=== PATIENT | female | born 2000 | race Hispanic/Latino ===

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

== ENCOUNTER 2022-03-09 10:38 | Emergency (ER) | payer OTHER ==
[2022-03-09 10:57] LABS: Urine Blood Trace-intact (Negative); Urine Glucose Negative (Negative); Urine Protein Negative (Negative); Urine Specific Gravity >=1.030 (1.005-1.030)
--- NOTE | 2022-03-09 11:01 | ER ---
Nurse's Notes [facility] Name: Romy Bernstein Age: 21 yrs Sex: Female : 2000 Arrival Date: 03/09/2022 Time: 10:42 Bed 18 Private MD: Diagnosis: UTI/ Urinary tract infection, site not specified Presentation: 03/09 10:55 Chief complaint: Patient states: "I have a bad UTI. I tried taking over the counter jd3 medication, but is has just got worse. I think it has gotten to the point where it might have become a yeast infection.". Coronavirus screen: At this time, the client does not indicate any symptoms associated with coronavirus-19. Ebola Screen: No symptoms or risks identified at this time. Initial Sepsis Screen: Does the patient meet any 2 criteria? No. Patient's initial sepsis screen is negative. Does the patient have a suspected source of infection? No. Patient's initial sepsis screen is negative. Risk Assessment: Do you want to hurt yourself or someone else? Patient reports no desire to harm self or others. Onset of symptoms was March 07, 2022. 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 - Social history:: Smoking status: Patient reports the use of cigarette tobacco products, denies chronic smoking, but will smoke occasionally. Screenin:06 Abuse screen: Denies threats or abuse. Nutritional screening: No deficits noted. ll1 Tuberculosis screening: No symptoms or risk factors identified. Fall Risk Total Estrada Fall Scale indicates No Risk (0-24 pts). 11:07 [facility] ED Fall Risk Assessment (Adult) Score/Fall Risk Level 0 - 2 = Low Risk ll1 Oriented to surroundings, Maintained a safe environment, Hourly rounding (assess needs \\T\\ fall precautionary measures) done. Assessment: 11:05 General: Appears in no apparent distress. Behavior is calm, cooperative. Pain: ll1 Complains of pain in pelvic Quality of pain is described as aching, Pain began 2-3 days ago. Neuro: No deficits noted. Cardiovascular: No deficits noted. : Reports burning with urination, urgency, urinary frequency. Vital Signs: 10:57 BP 114 / 73; Pulse 72; Resp 16 S; Temp 99.0(O); Pulse Ox 100% on R/A; Weight 80.74 kg jd3 (R); Height 5 ft. 3 in. (160.02 cm) (R); Pain 6/10; 11:11 BP 112 / 71; Pulse 75; Resp 15; Pulse Ox 99% ; Pain 6/10; ll1 10:57 Body Mass Index 31.53 (80.74 kg, 160.02 cm) jd3 ED Course: 10:42 Patient arrived in ED. rg4 10:42 Fransisco Jackson PA is PHCP. [facility] 10:42 Juancarlos Frey MD is Attending Physician. [facility] 10:50 Mayi Jack, CHAYA is Primary Nurse. ll1 10:50 Arm band placed on Patient placed in an exam room, on a stretcher. ll1 10:57 Triage completed. jd3 11:06 No provider procedures requiring assistance completed. Patient did not have IV access ll1 during this emergency room visit. 11:07 Patient has correct armband on for positive identification. Bed in low position. Call ll1 light in reach. Cardiac monitoring not applicable on this patient. Administered Medications: 11:05 Drug: DiFLUcan (fluconazole) 150 mg Route: PO; ll1 11:12 Follow up: Response: No adverse reaction ll1 Medication: 11:07 VIS not applicable for this client. ll1 Outcome: 11:01 Discharge ordered by . [facility] 11:07 Condition: stable ll1 11:11 Discharged to home ambulatory. ll1 11:11 Instructed on discharge instructions, follow up and referral plans. medication usage. 11:11 Discharge instructions given to patient, Demonstrated understanding of instructions, follow-up care, Prescriptions given X 1. 11:12 Patient left the ED. 1 Signatures: MicFransisco ruelas PA PA jmm Garcia, Rubi rg4 Trent Kerr, RN RN jd3 Mayi Jack, RN RN ll1
--- NOTE | 2022-03-09 11:01 | EDPHYS ---
Physician Documentation [facility] Name: Romy Bernstein Age: 21 yrs Sex: Female : 2000 Arrival Date: 03/09/2022 Time: 10:42 Bed 18 Private MD: ED Physician Juancarlos Frey HPI: 03/09 10:57 This 21 yrs old Female presents to ER via Ambulatory with complaints of jmm Urinary Problem. 10:57 The patient presents with urinary symptoms. Onset: The symptoms/episode began/occurred jmm gradually. Is a 21-year-old female with history of epilepsy the presents emerged department with complaints of dysuria beginning on the fourth of this month. Patient took [id number] medications which seem to alleviate symptoms but symptoms returned and worsen 3 to 4 days ago. Denies fever or vomiting. Denies vaginal discharge. Denies fever.. 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 - Social history:: Smoking status: Patient reports the use of cigarette tobacco products, denies chronic smoking, but will smoke occasionally. ROS: 10:57 Constitutional: Negative for fever, chills, and weight loss, Cardiovascular: Negative jmm for chest pain, palpitations, and edema, Respiratory: Negative for shortness of breath, cough, wheezing, and pleuritic chest pain. 10:57 : Positive for urinary symptoms. 10:57 All other systems are negative. Exam: 10:57 Constitutional: This is a well developed, well nourished patient who is awake, alert, jmm and in no acute distress. Head/Face: atraumatic. Eyes: EOMI, no conjunctival erythema appreciated ENT: Moist Mucus Membranes Neck: Trachea midline, Supple Chest/axilla: Normal chest wall appearance and motion. Cardiovascular: Regular rate and rhythm. No edema appreciated Respiratory: Normal respirations, no respiratory distress appreciated Abdomen/GI: Non distended Back: Normal ROM Skin: General appearance color normal MS/ Extremity: Moves all extremities, no obvious deformities appreciated, no edema noted to the lower extremities Neuro: Awake and alert Psych: Behavior is normal, Mood is normal, Patient is cooperative and pleasant Vital Signs: 10:57 BP 114 / 73; Pulse 72; Resp 16 S; Temp 99.0(O); Pulse Ox 100% on R/A; Weight 80.74 kg jd3 (R); Height 5 ft. 3 in. (160.02 cm) (R); Pain 6/10; 11:11 BP 112 / 71; Pulse 75; Resp 15; Pulse Ox 99% ; Pain 6/10; ll1 10:57 Body Mass Index 31.53 (80.74 kg, 160.02 cm) jd3 MDM: 10:57 Patient medically screened. [facility] 11:00 Data reviewed: vital signs, nurses notes. Counseling: I had a detailed discussion with sheri the patient and/or guardian regarding: the historical points, exam findings, and any diagnostic results supporting the discharge/admit diagnosis, the need for outpatient follow up, to return to the emergency department if symptoms worsen or persist or if there are any questions or concerns that arise at home. 03/09 10:57 Order name: Urine Dipstick-Ancillary; Complete Time: 11:04 EDNE 03/09 11:09 Order name: Urine --Ancillary (enter results) eb Administered Medications: 11:05 Drug: DiFLUcan (fluconazole) 150 mg Route: PO; ll1 11:12 Follow up: Response: No adverse reaction ll1 Disposition Summary: 03/09/22 11:01 Discharge Ordered Location: Home [facility] Condition: Stable cesar Diagnosis - UTI/ Urinary tract infection, site not specified [facility] Followup: [facility] - With: Private Physician - When: 2 - 3 days - Reason: Recheck today's complaints, Continuance of care, Re-evaluation by your physician Discharge Instructions: - Discharge Summary Sheet [facility] - Urinary Tract Infection, Adult [facility] Forms: - Medication Reconciliation Form [facility] - Thank You Letter [facility] - Antibiotic Education [facility] - Prescription Opioid Use [facility] Prescriptions: - cefpodoxime 200 mg Oral Tablet - take 1 tablet by ORAL route every 12 hours for 10 days with food; 20 tablet; sheri Refills: 0, Product Selection Permitted Signatures: Dispatcher [employer] Fransisco Khoury PA PA jmm Davies, Jonathon RN RN jd3 Mayi Jack RN RN ll1
--- OUTSIDE RECORDS SUMMARY | 2022-03-09 11:01 | XMS REPORT | Continuity of Care Document ---
:2000 Author Organization [facility] t Address [address] [place] [address] Care Team Providers Name Role Phone ALENA ERICKSON Primary Care Physician Unavailable KORI CASAREZ Attending Clinician Unavailable Kori Casarez PA-C Attending Clinician BROOKLYN GARDUNO Attending Clinician Unavailable Brooklyn Garduno MD Attending Clinician Doctor Unassigned, [place] Attending Clinician Unavailable GREGORIO DELCID Attending Clinician Unavailable Liu Carlton Attending Clinician Unavailable HAYLEY CASTILLO Attending Clinician Unavailable 2, [facility] Attending Clinician Unavailable CATRACHO TAMAYO Attending Clinician Unavailable Alena Erickson MD Attending Clinician Roma Adame NP Attending Clinician EMELY CANALES Attending Clinician Unavailable Chinmay Aly DO Attending Clinician Alexandria Whitmore MD Attending Clinician Nurse, Tony Quevedo Attending Clinician Unavailable ALENA ERICKSON Attending Clinician Unavailable Catracho Robledo Attending Clinician ALEXANDRIA WHITMORE Attending Clinician Unavailable Dalia Arreguin MD Attending Clinician Eeg, Sapna Pedi Neuro Attending Clinician Unavailable DALIA ARREGUIN Attending Clinician Unavailable Nurse, [facility] Attending Clinician Unavailable Urology, [facility] Pedi Attending Clinician Unavailable Eddie FULLER, Demetrius Attending Clinician Urology, Sapna Pedi Attending Clinician Unavailable Apryl Guerrero MD Attending Clinician ALEXANDRIA WHITMORE Admitting Clinician Unavailable Payers Payer Name Policy Type Policy Number Effective Date Expiration Date Thuy graff [facility] [id number] 2016 CHOICE MEDICAID 00:00:00 FORMERLY [facility] [id number] 2022 00:00:00 MEDICAID [facility] [id number] 2021 2022 00:00:00 00:00:00 Problems Condition Condition Condition Status Onset Resolution Last Treating Co mments Source Name Details Category Date Date Treatment Clinician Date Nexplanon Nexplanon Disease Active Uni vers in place in place 5-14 ity of 00:00: [place] 00 Medical Branch Burning Burning Disease Active Univers with with 5-14 ity of urination urination 00:00: [facility] s 00 Medical Branch Chronic Chronic Disease Active Univers nonintract nonintract 3-13 it y of able able 00:00: [place] headache, headache, 00 Medi milagros unspecifie unspecifie Br anch d headache d headache type type Obesity Obesity Disease Active Univers peds (BMI peds (BMI 7-19 ity of >=95 >=95 00:00: [place] percentile percentile 00 Me dical ) ) Branch Generalize Generalize Disease Active Overview : Univers d epilepsy d epilepsy 7-19 Formattin ity of 00:00: g of this [place] 00 note Medical might be Branch different [...] gain 7-18 ity of 00:00: [place] 00 [facility] Migraine Migraine Disease Active Unive rs without without -08 ity of aura and aura and 00:00: [place] without without 00 Medical status status Branch migrainosu migrainosu s, not s, not intractabl intractabl e e Family Family Disease Active 2017-03 Univers history of history of 0-24 it y of breast breast 00:00: [place] cancer cancer 00 [facility] Depo-Prove Depo-Prove Disease Active 2017-03 U nivers ra ra 0-24 [place] contrace[place]pt [place] the[place] status thea status 00 Me dical Branch 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 0-24 it[place] of in female [place] female [place] [facility] Asthma Asthma Disease Active Univers ity of [facility] Allergic Allergic Disease Active Unive rs rhinitis rhinitis ity of [facility] Family Family Disease Active Univers history of history of it y of familial familial [place] hyperchole hyperchole Me dical sterolemia sterolemia Br anch Allergies, Adverse Reactions, Alerts Allergy Allergy Status Severity Reaction(s) Onset Inactive Treating Comm ents Source Name Type Date Date Clinician LEVETIRA DRUG Active Other-Cmnt 2021-03 Univ ers CETAM INGREDI -11 ity of 00:00: [place] 00 [facility] Levetira Propensi Active Other - See 2021-03 Numb U nivers cetam ty to comments 04-02 mouth, ity of adverse 00:00: and [place] reaction 00 sleepy [facility] Solifena Propensi Active Swelling 2016-03 Univ ers lizabeth ty to 2-06 ity of Succinat adverse 00:00: [place] e reaction 00 Medical s Branch SOLIFENA DRUG Active Rash 2016- Univers LIZABETH INGREDI 2-06 ity of SUCCINAT [...] INGREDI 1-14 ity of 00:00: [place] 00 [facility] Social History Social Habit Start Date Stop Date Quantity Comments Source History of Passive smoker [place] of tobacco use [facility] Exposure to 2022-02-11 2022-02-[address] [facility] SARS-CoV-2 00:00:00 10:47:00 [facility] (event) [place] Alcohol intake 2022-02-21 2022-02-21 Current University 00:00:00 00:00:00 non-drinker of [facility] alcohol (finding) Branch Tobacco use and 2022-01-02 2022-01-02 Smokeless tobacco Un iversity of exposure 00:00:00 00:00:00 non-user [facility] Sex Assigned At 2000 2002 Universit y of 00:00:00 00:00:00 [facility] Smoking Status Start Date Stop Date Source Never smoked tobacco [facility] Medications Ordered Filled Start Stop Current Ordering Indication Dosage Frequency Signature Comments Components Source Medication Medication Date Date Medication? Clinician (SIG) Name Name No known 2021-03 No No known Unive rs medications 1-16 medication it y of 13:07: [address] No known 2021-03 No No known Unive rs medications 1-16 medication it y of 13:07: [address] No known 2021-03 No No known Unive rs medications 1-16 medication it y of 13:07: [address] No known 2021-03 No No known Unive rs medications 1-16 medication it y of 13:07: [address] No known 2021-03 No No known Unive rs medications 1-16 medication it y of 13:07: [address] No known 2021-03 No No known Unive rs medications 1-16 medication it y of 13:07: s [address] etonogestre 2021-03- No [id number] 68mg Univers L 04-02 ity of (NEXPLANON) 16:15: 15:23 [place] implant 68 00 :00 Medical mg Branch etonogestre 2021-03- No [id number] 68mg 68 mg, Univers L 04-02 Subdermal, ity of (NEXPLANON) 16:15: 15:23 ONCE NOW, [place] implant 68 00 :00 1 dose, On Med ical mg [facility] 01/31/22 at 1015, Routine
Use approved by: BINDERY ASSISTANT etonogestre 2021-03- No [id number] 68mg Univers L 04-02 ity of (NEXPLANON) 16:15: 15:23 [place] implant 68 00 :00 Medical mg Branch etonogestre 2021-03- No [id number] 68mg 68 mg, Univers L 04-02 Subdermal, ity of (NEXPLANON) 16:15: 15:23 ONCE NOW, [place] implant 68 00 :00 1 dose, On Med ical mg [facility] 01/31/22 at 1015, Routine
Use approved by: BINDERY ASSISTANT etonogestre 2021-03- No [id number] 68mg Univers L 04-02 ity of (NEXPLANON) 16:15: 15:23 [place] implant 68 00 :00 Medical mg Branch etonogestre 2021-03- No [id number] 68mg 68 mg, Univers L 04-02 Subdermal, ity of (NEXPLANON) 16:15: 15:23 ONCE NOW, [place] implant 68 00 :00 1 dose, On Med ical mg [facility] 01/31/22 at 1015, Routine
Use approved by: BINDERY ASSISTANT No known 2021-03 No No known Unive rs medications -11 medication it y of 08:48: s [address] No known 2021-03 No No known Unive rs medications -11 medication it y of 08:48: s [address] No known 2021-03 No No known Unive rs medications 0-13 medication it y of 09:58: s [address] No known 2021-03 No No known Unive rs medications 0-13 medication it y of 09:58: s [address] No known 2021-03 No No known Unive rs medications 0-13 medication it y of 09:58: s [address] No known 2021-03 No No known Unive rs medications 0-13 medication it y of 09:58: s [address] calcium 2020-03- No 1000mg 1,000 mg, Un dante chloride 0-17 10-17 Intravenou ity of 100 mg/mL 04:30: 03:55 s, ONCE, 1 [place] (10 %) 00 :00 dose, On Medical syringe Sat Branch 1,000 mg 01/05/21 at 2330, STAT levETIRAcet 2020-03- No 1000mg 1,000 mg, Univers am (KEPPRA) 0-17 -17 IV ity of in NACL 03:15: 02:51 [...] No Univers medications 0-16 ity of 23:25: [address] No known 2020-03 No Univers medications 0-16 ity of 23:25: [address] No known 2020-03 No No known Unive rs medications 0-16 medication it y of 23:25: s [place] 12 Medical Branch ciprofloxac 2020-03- No [id number] 250mg Take 1 Univers in HCl 250 0-16 10-20 tablet by ity of mg tablet 00:00: 04:59 [place] 2 [place] :[place] (two) Medical times Branch daily for 3 days. fluticasone Yes [id number] 1{spray Use 1 Univers propionate 1-11 } [place] in ity o f 50 00:00: each [place] mcg/actuati 00 nostril Medic al on nasal daily. Branch spray fluticasone Yes [id number] 1{spray Use 1 Univers propionate 1-11 } [place] in ity o f 50 00:00: each [place] mcg/actuati 00 nostril Medic al on nasal daily. Branch spray fluticasone Yes [id number] 1{spray Use 1 Univers propionate 1-11 } [place] in ity o f 50 00:00: each [place] mcg/actuati 00 nostril Medic al on nasal daily. Branch spray fluticasone Yes [id number] 1{spray Use 1 Univers propionate 1-11 } [place] in ity o f 50 00:00: each [place] mcg/actuati 00 nostril Medic al on nasal daily. Branch spray fluticasone Yes [id number] 1{spray Use 1 Univers propionate 1-11 } [place] in ity o f 50 00:00: each [place] mcg/actuati 00 nostril Medic al on nasal daily. Branch spray fluticasone Yes [id number] 1{spray Use 1 Univers propionate 1-11 } [place] in ity o f 50 00:00: each [place] mcg/actuati 00 nostril Medic al on nasal daily. Branch spray fluticasone 2020- No [id number] 1{spray Use 1 Univers propionate 1-11 10-16 } [place] in ity of 50 00:00: 00:00 each [place] mcg/actuati 00 :00 nostril Medic al on nasal daily. Branch spray ibuprofen 2019-03 Yes [id number] 600mg Take 1 U nivers 600 mg 2-04 tablet by ity of tablet 00:00: mouth [place] 00 every 8 Medical (eight) Branch hours as needed for Pain (scale 4-6) (headache) . cetirizine 2019-03 Yes [id number] 10mg Take 1 U nivers 10 mg 2-04 tablet by ity of tablet 00:00: mouth [place] 00 daily. Medical Branch fluticasone 2019-03 Yes [id number] 1{spray Use 1 Univers propionate 2-04 } [place] in ity o f 50 00:00: each [place] mcg/actuati 00 nostril Medic al on nasal daily. Branch spray ibuprofen 2019-03 Yes [id number] 600mg Take 1 U nivers 600 mg 2-04 tablet by ity of tablet 00:00: mouth [place] 00 every 8 Medical (eight) Branch hours as needed for Pain (scale 4-6) (headache) . cetirizine 2019-03 Yes [id number] 10mg Take 1 U nivers 10 mg 2-04 tablet by ity of tablet 00:00: mouth [place] 00 daily. Medical Branch fluticasone 2019-03 Yes [id number] 1{spray Use 1 Univers propionate 2-04 } [place] in ity o f 50 00:00: each [place] mcg/actuati 00 nostril Medic al on nasal daily. Branch spray cetirizine 2019-03 Yes [id number] 10mg Take 1 U nivers 10 mg 2-04 tablet by ity of tablet 00:00: mouth [place] 00 daily. Medical Branch cetirizine 2019-03 Yes [id number] 10mg Take 1 U nivers 10 mg 2-04 tablet by ity of tablet 00:00: mouth [place] 00 daily. Medical Branch cetirizine 2019-03 Yes [id number] 10mg Take 1 U nivers 10 mg 2-04 tablet by ity of tablet 00:00: mouth [place] 00 daily. Medical Branch cetirizine 2019-03 Yes [id number] 10mg Take 1 U nivers 10 mg 2-04 tablet by ity of tablet 00:00: mouth [place] 00 daily. Medical Branch cetirizine 2019-03 Yes [id number] 10mg Take 1 U nivers 10 mg 2-04 tablet by ity of tablet 00:00: mouth [place] 00 daily. Medical Branch cetirizine 2019-03 Yes [id number] 10mg Take 1 U nivers 10 mg 2-04 tablet by ity of tablet 00:00: mouth [place] 00 daily. Medical Branch cetirizine 2019-03 Yes [id number] 10mg Take 1 U nivers 10 mg 2-04 tablet by ity of tablet 00:00: mouth [place] 00 daily. [facility] cetirizine 2019-03 Yes [id number] 10mg Take 1 U nivers 10 mg 2-04 tablet by ity of tablet 00:00: mouth [place] 00 daily. [facility] cetirizine 2019-03 Yes [id number] 10mg Take 1 U nivers 10 mg 2-04 tablet by ity of tablet 00:00: mouth [place] 00 daily. [facility] cetirizine 2019-03 Yes [id number] 10mg Take 1 U nivers 10 mg 2-04 tablet by ity of tablet 00:00: mouth [place] 00 daily. [facility] cetirizine 2019-03 Yes [id number] 10mg Take 1 U nivers 10 mg 2-04 tablet by ity of tablet 00:00: mouth [place] 00 daily. [facility] cetirizine 2019-03 Yes [id number] 10mg Take 1 U nivers 10 mg 2-04 tablet by ity of tablet 00:00: mouth [place] 00 daily. [facility] cetirizine 2019-03- No [id number] 10mg Take 1 Univers 10 mg 2-04 10-16 tablet by ity of tablet 00:00: 00:00 mouth [place] 00 :00 daily. [facility] ibuprofen 2019-03- No [id number] 600mg Take 1 Univers 600 mg 2-04 -11 tablet by ity of tablet 00:00: 00:00 mouth [place] 00 :00 every 8 Medical (eight) Branch hours as needed for Pain (scale 4-6) (headache) . fluticasone 2019-03- No [id number] 1{spray Use 1 Univers propionate 2-04 -11 } [place] in ity of 50 00:00: 00:00 each [place] mcg/actuati 00 :00 nostril Medic al on nasal daily. Branch spray ibuprofen 2019-03- No [id number] 600mg Take 1 Univers 600 mg 2-04 -11 tablet by ity of tablet 00:00: 00:00 mouth [place] 00 :00 every 8 Medical (eight) Branch hours as needed for Pain (scale 4-6) (headache) . fluticasone 2019-03- No [id number] 1{spray Use 1 Univers propionate 04-26 } [place] in ity of 50 00:00: 00:00 each [place] mcg/actuati 00 :00 nostril Medic al on nasal daily. Branch spray fluticasone 2019-03- No [id number] 1{spray Use 1 Univers propionate 04-26 } [place] in ity of 50 00:00: 00:00 each [place] mcg/actuati 00 :00 nostril Medic al on nasal daily. Branch spray ibuprofen 2019-03- No [id number] 600mg Take 1 Univers 600 mg 04-26 tablet by ity of tablet 00:00: 00:00 mouth [place] 00 :00 every 8 Medical (eight) Branch hours as needed for Pain (scale 4-6) (headache) . fluticasone 2019-03- No [id number] 1{spray Use 1 Univers propionate 04-26 } [place] in ity of 50 00:00: 00:00 each [place] mcg/actuati 00 :00 nostril Medic al on nasal daily. Branch spray ibuprofen 2019-03- No [id number] 600mg Take 1 Univers 600 mg 04-26 tablet by ity of tablet 00:00: 00:00 mouth [place] 00 :00 every 8 Medical (eight) Branch hours as needed for Pain (scale 4-6) (headache) . fluticasone 2019-03- No [id number] 1{spray Use 1 Univers propionate 04-26 } [place] in ity of 50 00:00: 00:00 each [place] mcg/actuati 00 :00 nostril Medic al on nasal daily. Branch spray ibuprofen 2019-03- No [id number] 600mg Take 1 Univers 600 mg 04-26 tablet by ity of tablet 00:00: 00:00 mouth [place] 00 :00 every 8 Medical (eight) Branch hours as needed for Pain (scale 4-6) (headache) . fluticasone 2019-03- No [id number] 1{spray Use 1 Univers propionate 04-26 } [place] in ity of 50 00:00: 00:00 each [place] mcg/actuati 00 :00 nostril Medic al on nasal daily. Branch spray ibuprofen 2019-03- No [id number] 600mg Take 1 Univers 600 mg 04-26 tablet by ity of tablet 00:00: 00:00 mouth [place] 00 :00 every 8 Medical (eight) Branch hours as needed for Pain (scale 4-6) (headache) . fluticasone 2019-03- No [id number] 1{spray Use 1 Univers propionate 04-26 } [place] in ity of 50 00:00: 00:00 each [place] mcg/actuati 00 :00 nostril Medic al on nasal daily. [place] spray etonogestre 2019-03 No 68mg Unive rs L 03-31 ity of (NEXPLANON) 22:45: 21:43 [place] implant 68 00 :00 Medical mg Branch etonogestre 2019-03 No 68mg 68 mg, Uni vers L 03-31 Subdermal, ity of (NEXPLANON) 22:45: 21:43 ONCE NOW, [place] implant 68 00 :00 1 dose, Medica l mg Mon [place] 01/30/20 at 1645, Routine
Use approved by: BINDERY ASSISTANT etonogestre 2019-03 No 68mg Unive rs L 03-31 ity of (NEXPLANON) 22:45: 21:43 [place] implant 68 00 :00 Medical mg Branch etonogestre 2019-03- No 68mg 68 mg, Uni vers L 03-31 Subdermal, ity of (NEXPLANON) 22:45: 21:43 ONCE NOW, [place] implant 68 00 :00 1 dose, Medica l mg Mon [place] 01/30/20 at 1645, Routine
Use approved by: BINDERY ASSISTANT topiramate Yes [id number] 25mg Take 1 Univers (TOPAMAX) 7-22 tablet by ity o f 25 mg 00:00: mouth 2 [place] tablet 00 (two) Medical times Branch daily. topiramate Yes [id number] 25mg Take 1 Univers (TOPAMAX) 7-22 tablet by ity o f 25 mg 00:00: mouth 2 [place] tablet 00 (two) Medical times Branch daily. topiramate Yes [id number] 25mg Take 1 Univers (TOPAMAX) 7-22 tablet by ity o f 25 mg 00:00: mouth 2 [place] tablet 00 (two) Medical times Branch daily. topiramate 2020-0 Yes [id number] 25mg Take 1 Univers (TOPAMAX) 7-22 tablet by ity o f 25 mg 00:00: mouth 2 [place] tablet 00 (two) Medical times Branch daily. topiramate 2020-0 Yes [id number] 25mg Take 1 Univers (TOPAMAX) 7-22 tablet by ity o f 25 mg 00:00: mouth 2 [place] tablet 00 (two) Medical times Branch daily. topiramate 2020-0 Yes [id number] 25mg Take 1 Univers (TOPAMAX) 7-22 tablet by ity o f 25 mg 00:00: mouth 2 [place] tablet 00 (two) Medical times Branch daily. topiramate 2020-0 Yes [id number] 25mg Take 1 Univers (TOPAMAX) 7-22 tablet by ity o f 25 mg 00:00: mouth 2 [place] tablet 00 (two) Medical times Branch daily. topiramate 2020-0 Yes [id number] 25mg Take 1 Univers (TOPAMAX) 7-22 tablet by ity o f 25 mg 00:00: mouth 2 [place] tablet 00 (two) Medical times Branch daily. topiramate 2020-0 Yes [id number] 25mg Take 1 Univers (TOPAMAX) 7-22 tablet by ity o f 25 mg 00:00: mouth 2 [place] tablet 00 (two) Medical times Branch daily. topiramate 2020-0 Yes [id number] 25mg Take 1 Univers (TOPAMAX) 7-22 tablet by ity o f 25 mg 00:00: mouth 2 [place] tablet 00 (two) Medical times Branch daily. topiramate 2020-0 2020- No [id number] 25mg Take 1 Univers (TOPAMAX) 7-22 12-04 tablet by ity of 25 mg 00:00: 00:00 mouth 2 [place] tablet 00 :00 (two) Medical times Branch daily. topiramate 2020-0 2020- No [id number] 25mg Take 1 Univers (TOPAMAX) 7-22 12-04 [...] Medical times Branch daily. omeprazole 2020-0 Yes [id number] 20mg Take 1 Univers 20 mg 7-16 capsule by ity of capsule 00:00: mouth [place] 00 daily. Medical Branch topiramate 2020-0 Yes 25mg Take 1 Unive rs (TOPAMAX) 7-16 tablet by ity o f 25 mg 00:00: mouth 2 [place] tablet 00 (two) Medical times Branch daily. omeprazole 2020-0 Yes [id number] 20mg Take 1 Univers 20 mg 7-16 capsule by ity of capsule 00:00: mouth [place] 00 daily. Medical Branch topiramate 2020-0 Yes 25mg Take 1 Unive rs (TOPAMAX) 7-16 tablet by ity o f 25 mg 00:00: mouth 2 [place] tablet 00 (two) Medical times Branch daily. omeprazole 2020-0 Yes [id number] 20mg Take 1 Univers 20 mg 7-16 capsule by ity of capsule 00:00: mouth [place] 00 daily. Medical Branch omeprazole 2020-0 Yes [id number] 20mg Take 1 Univers 20 mg 7-16 capsule by ity of capsule 00:00: mouth [place] 00 daily. Medical Branch omeprazole 2020-0 Yes [id number] 20mg Take 1 Univers 20 mg 7-16 capsule by ity of capsule 00:00: mouth [place] 00 daily. Medical Branch omeprazole 2020-0 Yes [id number] 20mg Take 1 Univers 20 mg 7-16 capsule by ity of capsule 00:00: mouth [place] 00 daily. Medical Branch omeprazole 2020-0 Yes [id number] 20mg Take 1 Univers 20 mg 7-16 capsule by ity of capsule 00:00: mouth [place] 00 daily. Medical Branch omeprazole 2020-0 Yes [id number] 20mg Take 1 Univers 20 mg 7-16 capsule by ity of capsule 00:00: mouth [place] 00 daily. Medical Branch omeprazole 2020-0 Yes [id number] 20mg Take 1 Univers 20 mg 7-16 capsule by ity of capsule 00:00: mouth [place] 00 daily. Medical Branch omeprazole 2020-0 Yes [id number] 20mg Take 1 Univers 20 mg 7-16 capsule by ity of capsule 00:00: mouth [place] 00 daily. Medical Branch omeprazole 2020-0 Yes [id number] 20mg Take 1 Univers 20 mg 7-16 capsule by ity of capsule 00:00: mouth [place] 00 daily. Medical Branch omeprazole 2020-0 Yes [id number] 20mg Take 1 Univers 20 mg 7-16 capsule by ity of capsule 00:00: mouth [place] 00 daily. Medical Branch omeprazole 2020-0 Yes [id number] 20mg Take 1 Univers 20 mg 7-16 capsule by ity of capsule 00:00: mouth [place] 00 daily. Medical Branch omeprazole 2020-0 Yes [id number] 20mg Take 1 Univers 20 mg 7-16 capsule by ity of capsule 00:00: mouth [place] 00 daily. Medical Branch omeprazole 2020-0 Yes [id number] 20mg Take 1 Univers 20 mg 7-16 capsule by ity of capsule 00:00: mouth [place] 00 daily. Medical Branch omeprazole 2020-0 Yes [id number] 20mg Take 1 Univers 20 mg 7-16 capsule by ity of capsule 00:00: mouth [place] 00 daily. Medical Branch omeprazole 2020-0 Yes [id number] 20mg Take 1 Univers 20 mg 7-16 capsule by ity of capsule 00:00: mouth [place] 00 daily. Medical Branch omeprazole 2020-0 2020- No [id number] 20mg Take 1 Univers 20 mg 7-16 12-04 capsule by ity of capsule 00:00: 00:00 mouth [place] 00 :00 daily. Medical Branch omeprazole 2020-0 2020- No [id number] 20mg Take 1 Univers 20 mg 7-16 12-04 capsule by ity of capsule 00:00: 00:00 mouth [place] 00 :00 daily. Medical Branch topiramate 2020-0 2020- No 25mg Take 1 Univ ers (TOPAMAX) 7-16 -22 tablet by ity of 25 mg 00:00: 00:00 mouth 2 [place] tablet 00 :00 (two) Medical times Branch daily. topiramate 2020-0 2020- No 25mg Take 1 Univ ers (TOPAMAX) 7-16 -22 tablet by ity of 25 mg 00:00: 00:00 mouth 2 [place] tablet 00 :00 (two) Medical times Branch daily. topiramate 2020-0 2020- No 25mg Take 1 Univ ers (TOPAMAX) 7-16 -22 tablet by ity of 25 mg 00:00: 00:00 mouth 2 [place] tablet 00 :00 (two) Medical times Branch daily. topiramate 2020-0 2020- No 25mg Take 1 Univ ers (TOPAMAX) 7-16 -22 tablet by ity of 25 mg 00:00: 00:00 mouth 2 [place] tablet 00 :00 (two) Medical times Branch daily. topiramate 2020-0 2020- No 25mg Take 1 Univ ers (TOPAMAX) 7-16 -22 tablet by ity of 25 mg 00:00: 00:00 mouth 2 [place] tablet 00 :00 (two) Medical times Branch daily. meclizine 2020-0 Yes 25mg Take 25 mg Un dante 25 mg 7-07 by mouth ity of tablet 00:00: as needed. [place] [address] Medical Branch meclizine 2020-0 Yes 25mg Take 25 mg Un dante 25 mg 7-07 by mouth ity of tablet 00:00: as needed. [place] [address] Medical Branch meclizine 2020-0 Yes 25mg Take 25 mg Un dante 25 mg 7-07 by mouth ity of tablet 00:00: as needed. [address] Branch meclizine 2020-0 Yes 25mg Take 25 mg Un dante 25 mg 7-07 by mouth ity of tablet 00:00: as needed. [place] [address] Medical Branch meclizine 2020-0 Yes 25mg Take 25 mg Un [place] 25 mg 7-07 by mouth ity of tablet 00:00: as needed. [place] [address] Medical Branch meclizine 2020-0 Yes 25mg Take 25 mg Un d[place] 25 mg 7-07 by mouth ity of tablet 00:00: as needed. [place] [address] Medical Branch meclizine 2020-0 Yes 25mg Take 25 mg Un dante 25 mg 7-07 by mouth ity of tablet 00:00: as needed. [address] Branch meclizine 2020-0 Yes 25mg Take 25 mg Un dante 25 mg 7-07 by mouth ity of tablet 00:00: as needed. [place] [address] Medical Branch meclizine 2020-0 Yes 25mg Take 25 mg Un [place] 25 mg 7-07 by mouth ity of tablet 00:00: as needed. [place] [facility] Branch meclizine 2020-0 Yes 25mg Take 25 mg Un dante 25 mg 7-07 by mouth ity of tablet 00:00: as needed. [place] [facility] Branch meclizine 2020-0 Yes 25mg Take 25 mg Un dante 25 mg 7-07 by mouth ity of tablet 00:00: as needed. [place] [facility] meclizine 2020-0 Yes 25mg Take 25 mg Un dante 25 mg 7-07 by mouth ity of tablet 00:00: as needed. [place] [facility] meclizine 2020-0 Yes 25mg Take 25 mg Un dante 25 mg 7-07 by mouth ity of tablet 00:00: as needed. [place] [facility] meclizine 2020-0 Yes 25mg Take 25 mg Un dante 25 mg 7-07 by mouth ity of tablet 00:00: as needed. [place] [facility] meclizine 2020-0 Yes 25mg Take 25 mg Un dante 25 mg 7-07 by mouth ity of tablet 00:00: as needed. [place] [facility] meclizine 2020-0 Yes 25mg Take 25 mg Un dante 25 mg 7-07 by mouth ity of tablet 00:00: as needed. [place] [facility] meclizine 2020-0 Yes 25mg Take 25 mg Un dante 25 mg 7-07 by mouth ity of tablet 00:00: as needed. [place] [facility] meclizine 2020-0 2020- No 25mg Take 25 mg U nivers 25 mg 7-07 12-04 by mouth ity of tablet 00:00: 00:00 [place]. [place] meclizine 2020-0 2020- No 25mg Take 25 mg U nivers 25 mg 7-07 12-04 by mouth ity of tablet 00:00: 00:00 [place]. [place] :[place] Nitrofurant 2020-0 Yes [id number] 100mg Take 1 Univers oin&Nit. 5-18 capsule by ity o f Macrocryst 00:00: mouth 2 [place] (MACROBID) 00 (two) Medical 100 mg times Branch capsule daily. Nitrofurant 2020-0 Yes [id number] 100mg Take 1 Univers oin&Nit. 5-18 capsule by ity o f Macrocryst [place] ([place]CR[place] (two) Medical 100 mg times Branch capsule daily. Nitrofurant 2020-0 Yes [id number] 100mg Take 1 [facility] oin&Nit. 5-18 capsule by ity o f [place] 00:[place] ([place]CR[place] 00 (two) Medical 100 mg times Branch capsule daily. Nitrofurant 2019-0 2020- No [id number] 100mg Take 1 [facility] oin&Nit. 5-18 07-16 capsule by ity of [place]ryst 00:00: 00:00 mouth 2 [place] (MACROBID) 00 :00 (two) Medical 100 mg times Branch capsule daily. Nitrofurant 2019-0 2020- No [id number] 100mg Take 1 Univers oin&Nit. 5-18 07-16 capsule by ity of [place]ryst 00:00: 00:00 mouth 2 [place] (MACROBID) 00 :00 (two) Medical 100 mg times Branch capsule daily. etonogestre 2019-0 2020- No 68mg Unive rs l 08-03 ity of (NEXPLANON) 20:45: 19:36 [place] implant 68 00 :00 Medical mg Branch etonogestre 2019-0 2020- No 68mg 68 mg, Uni vers l 08-03 Subdermal, ity of (NEXPLANON) 20:45: 19:36 ONCE NOW, [place] implant 68 00 :00 1 dose, Medica l mg Gladys Branch 08/04/19 at 1545, Routine
Use approved by: BINDERY ASSISTANT etonogestre 2019-0 2020- No 68mg Unive rs l 08-03 ity of (NEXPLANON) 20:45: 19:36 [place] implant 68 00 :00 Medical mg Branch etonogestre 2019-0 2020- No 68mg 68 mg, Uni vers l 08-03 Subdermal, ity of (NEXPLANON) 20:45: 19:36 ONCE NOW, [place] implant 68 00 :00 1 dose, Medica l mg Gladys Branch 08/04/19 at 1545, Routine
Use approved by: BINDERY ASSISTANT norelgestro 2020-0 Yes [id number] 1{patch Apply 1 Univers min-ethinyl 3-25 } Patch to ity of estradiol 00:00: [facility] 150-35 00 weekly. Medical mcg/24 hr Branch patch norelgestro 2020-0 Yes [id number] 1{patch Apply 1 Univers min-ethinyl 3-25 } Patch to ity of estradiol 00:00: [facility] 150-35 00 weekly. Medical mcg/24 hr Branch patch norelgestro 2020-0 Yes [id number] 1{patch Apply 1 Univers min-ethinyl 3-25 } Patch to ity of estradiol 00:00: [facility] 150-35 00 weekly. Medical mcg/24 hr Branch patch norelgestro 2020-0 Yes [id number] 1{patch Apply 1 Univers min-ethinyl 3-25 } Patch to ity of estradiol 00:00: [facility] 150-35 00 weekly. Medical mcg/24 hr Branch patch norelgestro 2020-0 Yes [id number] 1{patch Apply 1 Univers min-ethinyl 3-25 } Patch to ity of estradiol 00:00: [facility] 150-35 00 weekly. Medical mcg/24 hr Branch patch norelgestro 2020-0 2020- No [id number] 1{patch Apply 1 Univers min-ethinyl 3-25 05-14 } Patch to ity of estradiol 00:00: 00:00 [facility] 150-35 00 :00 weekly. Medical mcg/24 hr Branch patch norelgestro 2020-0 2020- No [id number] 1{patch Apply 1 Univers min-ethinyl 3-25 05-14 } Patch to ity of estradiol 00:00: 00:00 skin [place] 150-35 00 :00 weekly. Medical mcg/24 hr Branch patch ibuprofen 2020-0 Yes [id number] 600mg Take 1 U nivers 600 mg 3-02 tablet by ity of tablet 00:00: mouth [place] 00 every 8 Medical (eight) Branch hours as needed for Pain (scale 4-6) (headache) . ibuprofen 2020-0 Yes [id number] 600mg Take 1 U nivers 600 mg 3-02 tablet by ity of tablet 00:00: mouth [place] 00 every 8 Medical (eight) Branch hours as needed for Pain (scale 4-6) (headache) . ibuprofen 2020-0 Yes [id number] 600mg Take 1 U nivers 600 mg 3-02 tablet by ity of tablet 00:00: mouth [place] 00 every 8 Medical (eight) Branch hours as needed for Pain (scale 4-6) (headache) . ibuprofen 2020-0 Yes [id number] 600mg Take 1 U nivers 600 mg 3-02 tablet by ity of tablet 00:00: mouth [place] 00 every 8 Medical (eight) Branch hours as needed for Pain (scale 4-6) (headache) . ibuprofen 2020-0 Yes [id number] 600mg Take 1 U nivers 600 mg 3-02 tablet by ity of tablet 00:00: mouth [place] 00 every 8 Medical (eight) Branch hours as needed for Pain (scale 4-6) (headache) . ibuprofen 2020-0 Yes [id number] 600mg Take 1 U nivers 600 mg 3-02 tablet by ity of tablet 00:00: mouth [place] 00 every 8 Medical (eight) Branch hours as needed for Pain (scale 4-6) (headache) . ibuprofen 2020-0 Yes [id number] 600mg Take 1 U nivers 600 mg 3-02 tablet by ity of tablet 00:00: mouth [place] 00 every 8 Medical (eight) Branch hours as needed for Pain (scale 4-6) (headache) . ibuprofen 2020-0 Yes [id number] 600mg Take 1 U nivers 600 mg 3-02 tablet by ity of tablet 00:00: mouth [place] 00 every 8 Medical (eight) Branch hours as needed for Pain (scale 4-6) (headache) . ibuprofen 2020-0 Yes [id number] 600mg Take 1 U nivers 600 mg 3-02 tablet by ity of tablet 00:00: mouth [place] 00 every 8 Medical (eight) Branch hours as needed for Pain (scale 4-6) (headache) . ibuprofen 2020-0 Yes [id number] 600mg Take 1 U nivers 600 mg 3-02 tablet by ity of tablet 00:00: mouth [place] 00 every 8 Medical (eight) Branch hours as needed for Pain (scale 4-6) (headache) . ibuprofen 2020-0 Yes [id number] 600mg Take 1 U nivers 600 mg 3-02 tablet by ity of tablet 00:00: mouth [place] 00 every 8 Medical (eight) Branch hours as needed for Pain (scale 4-6) (headache) . ibuprofen 2020-0 Yes [id number] 600mg Take 1 U nivers 600 mg 3-02 tablet by ity of tablet 00:00: mouth [place] 00 every 8 Medical (eight) Branch hours as needed for Pain (scale 4-6) (headache) . ibuprofen 2020-0 Yes [id number] 600mg Take 1 U nivers 600 mg 3-02 tablet by ity of tablet 00:00: mouth [place] 00 every 8 Medical (eight) Branch hours as needed for Pain (scale 4-6) (headache) . ibuprofen 2020-0 Yes [id number] 600mg Take 1 U nivers 600 mg 3-02 tablet by ity of tablet 00:00: mouth [place] 00 every 8 Medical (eight) Branch hours as needed for Pain (scale 4-6) (headache) . ibuprofen 2020-0 Yes [id number] 600mg Take 1 U nivers 600 mg 3-02 tablet by ity of tablet 00:00: mouth [place] 00 every 8 Medical (eight) Branch hours as needed for Pain (scale 4-6) (headache) . ibuprofen 2020-0 Yes [id number] 600mg Take 1 U nivers 600 mg 3-02 tablet by ity of tablet 00:00: mouth [place] 00 every 8 Medical (eight) Branch hours as needed for Pain (scale 4-6) (headache) . ibuprofen 2020-0 Yes [id number] 600mg Take 1 U nivers 600 mg 3-02 tablet by ity of tablet 00:00: mouth [place] 00 every 8 Medical (eight) Branch hours as needed for Pain (scale 4-6) (headache) . ibuprofen 2020-0 Yes [id number] 600mg Take 1 U nivers 600 mg 3-02 tablet by ity of tablet 00:00: mouth [place] 00 every 8 Medical (eight) Branch hours as needed for Pain (scale 4-6) (headache) . ibuprofen 2020-0 Yes [id number] 600mg Take 1 U nivers 600 mg 3-02 tablet by ity of tablet 00:00: mouth [place] 00 every 8 Medical (eight) Branch hours as needed for Pain (scale 4-6) (headache) . ibuprofen 2020-0 Yes [id number] 600mg Take 1 U nivers 600 mg 3-02 tablet by ity of tablet 00:00: mouth [place] 00 every 8 Medical (eight) Branch hours as needed for Pain (scale 4-6) (headache) . ibuprofen 2020-0 Yes [id number] 600mg Take 1 U nivers 600 mg 3-02 tablet by ity of tablet 00:00: mouth [place] 00 every 8 Medical (eight) Branch hours as needed for Pain (scale 4-6) (headache) . ibuprofen 2020-0 Yes [id number] 600mg Take 1 U nivers 600 mg 3-02 tablet by ity of tablet 00:00: mouth [place] 00 every 8 Medical (eight) Branch hours as needed for Pain (scale 4-6) (headache) . ibuprofen 2020-0 Yes [id number] 600mg Take 1 U nivers 600 mg 3-02 tablet by ity of tablet 00:00: mouth [place] 00 every 8 Medical (eight) Branch hours as needed for Pain (scale 4-6) (headache) . ibuprofen 2020-0 Yes [id number] 600mg Take 1 U nivers 600 mg 3-02 tablet by ity of tablet 00:00: mouth [place] 00 every 8 Medical (eight) Branch hours as needed for Pain (scale 4-6) (headache) . ibuprofen 2020-0 Yes [id number] 600mg Take 1 U nivers 600 mg 3-02 tablet by ity of tablet 00:00: mouth [place] 00 every 8 Medical (eight) Branch hours as needed for Pain (scale 4-6) (headache) . ibuprofen 2020-0 Yes [id number] 600mg Take 1 U nivers 600 mg 3-02 tablet by ity of tablet 00:00: mouth [place] 00 every 8 Medical (eight) Branch hours as needed for Pain (scale 4-6) (headache) . ibuprofen 2020-0 Yes [id number] 600mg Take 1 U nivers 600 mg 3-02 tablet by ity of tablet 00:00: mouth [place] 00 every 8 Medical (eight) Branch hours as needed for Pain (scale 4-6) (headache) . ibuprofen 2020-0 Yes [id number] 600mg Take 1 U nivers 600 mg 3-02 tablet by ity of tablet 00:00: mouth [place] 00 every 8 Medical (eight) Branch hours as needed for Pain (scale 4-6) (headache) . ibuprofen 2020-0 Yes [id number] 600mg Take 1 U nivers 600 mg 3-02 tablet by ity of tablet 00:00: mouth [place] 00 every 8 Medical (eight) Branch hours as needed for Pain (scale 4-6) (headache) . ibuprofen 2020-0 Yes [id number] 600mg Take 1 U nivers 600 mg 3-02 tablet by ity of tablet 00:00: mouth [place] 00 every 8 Medical (eight) Branch hours as needed for Pain (scale 4-6) (headache) . ibuprofen 2020-0 Yes [id number] 600mg Take 1 U nivers 600 mg 3-02 tablet by ity of tablet 00:00: mouth [place] 00 every 8 Medical (eight) Branch hours as needed for Pain (scale 4-6) (headache) . ibuprofen 2020-0 2020- No [id number] 600mg Take 1 [facility] 600 mg 3-02 12-04 tablet by ity of tablet 00:00: 00:00 mouth [place] 00 :00 every 8 Medical (eight) Branch hours as needed for Pain (scale 4-6) (headache) . ibuprofen 2020-0 2020- No [id number] 600mg Take 1 [facility] 600 mg 3-02 12-04 tablet by ity of tablet 00:00: 00:00 mouth [place] 00 :00 every 8 Medical (eight) Branch hours as needed for Pain (scale 4-6) (headache) . medroxyPROG 2020-0 2020- No 150mg Univ ers ESTERone -16 05-24 ity of (DEPO-PROVE 23:00: 21:50 [place] RA) 00 :00 Medical injection Branch 150 mg medroxyPROG 2020-0 2020- No 150mg 150 mg, U nivers ESTERone 05-16-24 Intramuscu ity of (DEPO-PROVE 23:00: 21:50 lar, ONCE, [place] RA) 00 :00 1 dose, Medical injection Mon Branch 150 mg 05/16/19 at 1700, Routine oxybutynin 2020-0 Yes [id number] 5mg Take 1 U nivers chloride 5 2-11 tablet by ity of mg tablet 00:00: mouth (two) Medical times Branch daily. oxybutynin 2020-0 Yes [id number] 5mg Take 1 U nivers chloride 5 2-11 tablet by ity of mg tablet 00:00: mouth 2 (two) Medical times Branch daily. oxybutynin 2020-0 Yes [id number] 5mg Take 1 U nivers chloride 5 2-11 tablet by ity of mg tablet 00:00: mouth 2 (two) Medical times Branch daily. oxybutynin 2020-0 Yes [id number] 5mg Take 1 U nivers chloride 5 2-11 tablet by ity of mg tablet 00:00: mouth (two) Medical times Branch daily. oxybutynin 2020-0 Yes [id number] 5mg Take 1 U nivers chloride 5 2-11 tablet by ity of mg tablet 00:00: mouth (two) Medical times Branch daily. oxybutynin 2020-0 Yes [id number] 5mg Take 1 U nivers chloride 5 2-11 tablet by ity of mg tablet 00:00: mouth (two) Medical times Branch daily. oxybutynin 2020-0 Yes [id number] 5mg Take 1 U nivers chloride 5 2-11 tablet by ity of mg tablet 00:00: mouth (two) Medical times Branch daily. oxybutynin 2020-0 Yes [id number] 5mg Take 1 U nivers chloride 5 2-11 tablet by ity of mg tablet 00:00: mouth (two) Medical times Branch daily. oxybutynin 2020-0 Yes [id number] 5mg Take 1 U nivers chloride 5 2-11 tablet by ity of mg tablet 00:00: mouth (two) Medical times Branch daily. oxybutynin 2020-0 Yes [id number] 5mg Take 1 U nivers chloride 5 2-11 tablet by ity of mg tablet 00:00: mouth (two) Medical times Branch daily. oxybutynin 2020-0 Yes [id number] 5mg Take 1 U nivers chloride 5 2-11 tablet by ity of mg tablet 00:00: mouth (two) Medical times Branch daily. oxybutynin 2020-0 Yes [id number] 5mg Take 1 U nivers chloride 5 2-11 tablet by ity of mg tablet 00:00: mouth (two) Medical times Branch daily. oxybutynin 2020-0 Yes [id number] 5mg Take 1 U nivers chloride 5 2-11 tablet by ity of mg tablet 00:00: mouth (two) Medical times Branch daily. oxybutynin 2020-0 Yes [id number] 5mg Take 1 U nivers chloride 5 2-11 tablet by ity of mg tablet 00:00: mouth (two) Medical times Branch daily. oxybutynin 2020-0 Yes [id number] 5mg Take 1 U nivers chloride 5 2-11 tablet by ity of mg tablet 00:00: mouth 2 [place] 00 (two) Medical times Branch daily. oxybutynin 2020-0 Yes [id number] 5mg Take 1 U nivers chloride 5 2-11 tablet by ity of mg tablet 00:00: mouth 2 [place] 00 (two) Medical times Branch daily. oxybutynin 2020-0 Yes [id number] 5mg Take 1 U nivers chloride 5 2-11 tablet by ity of mg tablet 00:00: mouth 2 [place] 00 (two) Medical times Branch daily. oxybutynin 2020-0 2020- No [id number] 5mg Take 1 Univers chloride 5 2-11 07-16 tablet by ity of mg tablet 00:00: 00:00 [place] 00 :00 (two) Medical times Branch daily. oxybutynin 2020-0 2020- No [id number] 5mg Take 1 [facility] chloride 5 2-11 07-16 tablet by ity of mg tablet 00:00: 00:00 mouth 2 [place] 00 :00 (two) Medical times Branch daily. polyethylen 2018-03 Yes [id number] 1/2 cap Univers e glycol 2-31 twice ity of (MIRALAX) 00:00: daily [place] 17 Medical gram/dose Branch powder polyethylen 2018- Yes [id number] 1/2 cap Univers e glycol 2-31 twice ity of (MIRALAX) 00:00: daily [place] 17 Medical gram/dose Branch powder polyethylen 2018- Yes [id number] 1/2 cap Univers e glycol 2-31 twice ity of (MIRALAX) 00:00: daily [place] 17 Medical gram/dose Branch powder polyethylen 2018- Yes [id number] 1/2 cap Univers e glycol 2-31 twice ity of (MIRALAX) 00:00: daily [place] 17 Medical gram/dose Branch powder polyethylen 2019- Yes [id number] 1/2 cap Univers e glycol 2-31 twice ity of (MIRALAX) 00:00: daily [place] 17 Medical gram/dose Branch powder polyethylen 2018- Yes [id number] 1/2 cap Univers e glycol 2-31 twice ity of (MIRALAX) 00:00: daily [place] 17 Medical gram/dose Branch powder polyethylen 2018-03 Yes [id number] 1/2 cap Univers e glycol 2-31 twice ity of (MIRALAX) 00:00: daily [place] 17 Medical gram/dose Branch powder polyethylen 2019- Yes [id number] 1/2 cap Univers e glycol 2-31 twice ity of (MIRALAX) 00:00: daily [place] 17 Medical gram/dose Branch powder polyethylen 2019- Yes [id number] 1/2 cap Univers e glycol 2-31 twice ity of (MIRALAX) 00:00: daily [place] 17 Medical gram/dose Branch powder polyethylen 2019- Yes [id number] 1/2 cap Univers e glycol 2-31 twice ity of (MIRALAX) 00:00: daily [place] 17 Medical gram/dose Branch powder polyethylen 2019- Yes [id number] 1/2 cap Univers e glycol 2-31 twice ity of (MIRALAX) 00:00: daily [place] 17 Medical gram/dose Branch powder polyethylen 2019- Yes [id number] 1/2 cap Univers e glycol 2-31 twice ity of (MIRALAX) 00:00: daily [place] 17 Medical gram/dose Branch powder polyethylen 2019- Yes [id number] 1/2 cap Univers e glycol 2-31 twice ity of (MIRALAX) 00:00: daily [place] 17 Medical gram/dose Branch powder polyethylen 2019- Yes [id number] 1/2 cap Univers e glycol 2-31 twice ity of (MIRALAX) 00:00: daily [place] 17 Medical gram/dose Branch powder polyethylen 2019- Yes [id number] 1/2 cap Univers e glycol 2-31 twice ity of (MIRALAX) 00:00: daily [place] 17 Medical gram/dose Branch powder polyethylen 2019- Yes [id number] 1/2 cap Univers e glycol 2-31 twice ity of (MIRALAX) 00:00: daily [place] 17 Medical gram/dose Branch powder polyethylen 2019- Yes [id number] 1/2 cap Univers e glycol 2-31 twice ity of (MIRALAX) 00:00: daily [place] 17 Medical gram/dose Branch powder polyethylen 2019- Yes [id number] 1/2 cap Univers e glycol 2-31 twice ity of (MIRALAX) 00:00: daily [place] 17 Medical gram/dose Branch powder polyethylen 2019- Yes [id number] 1/2 cap Univers e glycol 2-31 twice ity of (MIRALAX) 00:00: daily [place] 17 Medical gram/dose Branch powder polyethylen 2019- Yes [id number] 1/2 cap Univers e glycol 2-31 twice ity of (MIRALAX) 00:00: daily [place] 17 Medical gram/dose Branch powder polyethylen 2019- Yes [id number] 1/2 cap Univers e glycol 2-31 twice ity of (MIRALAX) 00:00: daily [place] 17 Medical gram/dose Branch powder polyethylen 2019- Yes [id number] 1/2 cap Univers e glycol 2-31 twice ity of (MIRALAX) 00:00: daily [place] 17 Medical gram/dose Branch powder polyethylen 2019- Yes [id number] 1/2 cap Univers e glycol 2-31 twice ity of (MIRALAX) 00:00: daily [place] Medical gram/dose Branch powder polyethylen 2019- Yes [id number] 1/2 cap Univers e glycol 2-31 twice ity of (MIRALAX) 00:00: daily [place] 17 Medical gram/dose Branch powder polyethylen 2019- Yes [id number] 1/2 cap Univers e glycol 2-31 twice ity of (MIRALAX) 00:00: daily [place] 17 Medical gram/dose Branch powder polyethylen 2019- Yes [id number] 1/2 cap Univers e glycol 2-31 twice ity of (MIRALAX) 00:00: daily [place] 17 Medical gram/dose Branch powder polyethylen 2019- Yes [id number] 1/2 cap Univers e glycol 2-31 twice ity of (MIRALAX) 00:00: daily [place] 17 Medical gram/dose Branch powder polyethylen 2019- Yes [id number] 1/2 cap Univers e glycol 2-31 twice ity of (MIRALAX) 00:00: daily [place] 17 Medical gram/dose Branch powder polyethylen 2019- Yes [id number] 1/2 cap Univers e glycol 2-31 twice ity of (MIRALAX) 00:00: daily [place] 17 Medical gram/dose Branch powder polyethylen 2019- Yes [id number] 1/2 cap Univers e glycol 2-31 twice ity of (MIRALAX) 00:00: daily [place] 17 00 Medical gram/dose Branch powder polyethylen 2019- Yes [id number] 1/2 cap Univers e glycol 2-31 twice ity of (MIRALAX) 00:00: daily [place] 17 Medical gram/dose Branch powder polyethylen 2019- Yes [id number] 1/2 cap Univers e glycol 2-31 twice ity of (MIRALAX) 00:00: daily [place] 17 Medical gram/dose Branch powder polyethylen 2019- Yes [id number] 1/2 cap Univers e glycol 2-31 twice ity of (MIRALAX) 00:00: daily [place] 17 Medical gram/dose Branch powder polyethylen 2019- Yes [id number] 1/2 cap Univers e glycol 2-31 twice ity of (MIRALAX) 00:00: daily [place] 17 Medical gram/dose Branch powder polyethylen 2019- Yes [id number] 1/2 cap Univers e glycol 2-31 twice ity of (MIRALAX) 00:00: daily [place] 17 Medical gram/dose Branch powder polyethylen 2019- Yes [id number] 1/2 cap Univers e glycol 2-31 twice ity of (MIRALAX) 00:00: daily [place] 17 Medical gram/dose Branch powder polyethylen 2019- Yes [id number] 1/2 cap Univers e glycol 2-31 twice ity of (MIRALAX) 00:00: daily [place] 17 Medical gram/dose Branch powder polyethylen 2019- Yes [id number] 1/2 cap Univers e glycol 2-31 twice ity of (MIRALAX) 00:00: daily [place] 17 Medical gram/dose Branch powder polyethylen 2019- Yes [id number] 1/2 cap Univers e glycol 2-31 twice ity of (MIRALAX) 00:00: daily [place] 17 Medical gram/dose Branch powder polyethylen 2019- Yes [id number] 1/2 cap Univers e glycol 2-31 twice ity of (MIRALAX) 00:00: daily [place] 17 Medical gram/dose Branch powder polyethylen 2019- 2021- No [id number] 1/2 cap Univers e glycol 2-31 01-11 twice ity of (MIRALAX) 00:00: 00:00 daily [place] 17 00 :00 Medical gram/dose Branch powder polyethylen 2018-03- No [id number] 1/2 cap Univers e glycol 04-02 twice ity of (MIRALAX) 00:00: 00:00 daily [place] [address] 00 :00 Medical gram/dose Branch powder polyethylen 2018-03- No [id number] 1/2 cap Univers e glycol 04-02 twice ity of (MIRALAX) 00:00: 00:00 daily [place] [address] 00 :00 Medical gram/dose Branch powder polyethylen 2018-03- No [id number] 1/2 cap Univers e glycol 04-02 twice ity of (MIRALAX) 00:00: 00:00 daily [place] [address] 00 :00 Medical gram/dose Branch powder polyethylen 2018-03- No [id number] 1/2 cap Univers e glycol 04-02 twice ity of (MIRALAX) 00:00: 00:00 daily [place] [address] 00 :00 Medical gram/dose Branch powder polyethylen 2018-03- No [id number] 1/2 cap Univers e glycol 04-02 twice ity of (MIRALAX) 00:00: 00:00 daily [place] [address] 00 :00 Medical gram/dose Branch powder medroxyPROG 2019- No [id number] 150mg Univers ESTERone 11-11 ity of (DEPO-PROVE 15:00: 13:54 [place] RA) 00 :00 Medical injection Branch 150 mg medroxyPROG 2019- No [id number] 150mg 150 mg, Univers ESTERone 11-11 Intramuscu ity of (DEPO-PROVE 15:00: 13:54 lar, ONCE, [place] RA) 00 :00 1 dose, Medical injection Gladys Branch 150 mg 11/11/18 at 1000, Routine medroxyPROG 2019- No [id number] 150mg Univers ESTERone 11-11 ity of (DEPO-PROVE 15:00: 13:54 [place] RA) 00 :00 Medical injection Branch 150 mg medroxyPROG 2019- No [id number] 150mg 150 mg, Univers ESTERone 11-11 Intramuscu ity of (DEPO-PROVE 15:00: 13:54 lar, ONCE, [place] RA) 00 :00 1 dose, Medical injection Gladys Branch 150 mg 11/11/18 at 1000, Routine zonisamide 2019-0 Yes [id number] 200mg Take 2 Univers 100 mg 4-12 capsules ity of capsule 00:00: by mouth [place] 00 daily. Medical Branch zonisamide 2019-0 Yes [id number] 200mg Take 2 [facility] 100 mg 4-12 capsules ity of capsule 00:00: by mouth [place] 00 daily. Medical Branch zonisamide 2018-0 Yes [id number] 200mg Take 2 [facility] 100 mg 4-12 capsules ity of capsule 00:00: by mouth [place] 00 daily. Medical Branch zonisamide 2018-0 Yes [id number] 200mg Take 2 [facility] 100 mg 4-12 capsules ity of capsule 00:00: by mouth [place] 00 daily. Medical Branch zonisamide 2018-0 Yes [id number] 200mg Take 2 [facility] 100 mg 4-12 capsules ity of capsule 00:00: by mouth [place] 00 daily. Medical Branch zonisamide 2018-0 Yes [id number] 200mg Take 2 [facility] 100 mg 4-12 capsules ity of capsule 00:00: by mouth [place] 00 daily. Medical Branch zonisamide 2019-0 Yes [id number] 200mg Take 2 [facility] 100 mg 4-12 capsules ity of capsule 00:00: by mouth [place] 00 daily. Medical Branch zonisamide 2018-0 Yes [id number] 200mg Take 2 [facility] 100 mg 4-12 capsules ity of capsule 00:00: by mouth [place] 00 daily. Medical Branch zonisamide 2019-0 Yes [id number] 200mg Take 2 [facility] 100 mg 4-12 capsules ity of capsule 00:00: by mouth [place] 00 daily. Medical Branch zonisamide 2019-0 Yes [id number] 200mg Take 2 [facility] 100 mg 4-12 capsules ity of capsule 00:00: by mouth [place] 00 daily. Medical Branch zonisamide 2019-0 Yes [id number] 200mg Take 2 [facility] 100 mg 4-12 capsules ity of capsule 00:00: by mouth [place] 00 daily. Medical Branch zonisamide 2019-0 Yes [id number] 200mg Take 2 [facility] 100 mg 4-12 capsules ity of capsule 00:00: by mouth [place] 00 daily. Medical Branch zonisamide 2019-0 Yes [id number] 200mg Take 2 [facility] 100 mg 4-12 capsules ity of capsule 00:00: by mouth [place] 00 daily. Medical Branch zonisamide Yes [id number] 200mg Take 2 [facility] 100 mg 4-12 capsules ity of capsule 00:00: by mouth [place] 00 daily. Medical Branch zonisamide Yes [id number] 200mg Take 2 [facility] 100 mg 4-12 capsules ity of capsule 00:00: by mouth [place] 00 daily. Medical Branch zonisamide 2020- No [id number] 200mg Take 2 [facility] 100 mg 4-12 02-11 capsules ity of capsule 00:00: 00:00 by mouth [place] 00 :00 daily. Medical Branch zonisamide 2020- No [id number] 200mg Take 2 Univers 100 mg 4-12 [...] Completed Unive rsity of PFIZER VACCINE 00:00:00 [facility] SARS-COV-2 COVID-19 2020-07-06 Completed Unive rsity of PFIZER VACCINE 00:00:00 [facility] SARS-COV-2 COVID-19 2020-07-06 Completed Unive rsity of PFIZER VACCINE 00:00:00 [facility] SARS-COV-2 COVID-19 2020-07-06 Completed Unive rsity of PFIZER VACCINE 00:00:00 [facility] SARS-COV-2 COVID-19 2020-07-06 Completed Unive rsity of PFIZER VACCINE 00:00:00 [facility] SARS-COV-2 COVID-19 2020-07-06 Completed Unive rsity of PFIZER VACCINE 00:00:00 [facility] SARS-COV-2 COVID-19 2020-07-06 Completed Unive rsity of PFIZER VACCINE 00:00:00 [facility] SARS-COV-2 COVID-19 2020-07-06 Completed Unive rsity of PFIZER VACCINE 00:00:00 [facility] SARS-COV-2 COVID-19 2020-07-06 Completed Unive rsity of PFIZER VACCINE 00:00:00 [facility] SARS-COV-2 COVID-19 2020-07-06 Completed Unive rsity of PFIZER VACCINE 00:00:00 [facility] SARS-COV-2 COVID-19 2020-07-06 Completed Unive rsity of PFIZER VACCINE 00:00:00 [facility] SARS-COV-2 COVID-19 2020-07-06 Completed Unive rsity of PFIZER VACCINE 00:00:00 [facility] SARS-COV-2 COVID-19 2020-07-06 Completed Unive rsity of PFIZER VACCINE 00:00:00 [facility] SARS-COV-2 COVID-19 2020-07-06 Completed Unive rsity of PFIZER VACCINE 00:00:00 [facility] SARS-COV-2 COVID-19 2020-07-06 Completed Unive rsity of PFIZER VACCINE 00:00:00 [facility] SARS-COV-2 COVID-19 2020-07-06 Completed Unive rsity of PFIZER VACCINE 00:00:00 [facility] SARS-COV-2 COVID-19 2020-07-06 Completed Unive rsity of PFIZER VACCINE 00:00:00 [facility] SARS-COV-2 COVID-19 2020-07-06 Completed Unive rsity of PFIZER VACCINE 00:00:00 [facility] SARS-COV-2 COVID-19 2020-07-06 Completed Unive rsity of PFIZER VACCINE 00:00:00 [facility] SARS-COV-2 COVID-19 2020-06-15 Completed Unive rsity of PFIZER VACCINE 00:00:00 [facility] SARS-COV-2 COVID-19 2020-06-15 Completed Unive rsity of PFIZER VACCINE 00:00:00 [facility] SARS-COV-2 COVID-19 2020-06-15 Completed [facility] PFIZER VACCINE 00:00:00 [facility] SARS-COV-2 COVID-19 2020-06-15 Completed [facility] PFIZER VACCINE 00:00:00 [facility] SARS-COV-2 COVID-19 2020-06-15 Completed [facility] PFIZER VACCINE 00:00:00 [facility] SARS-COV-2 COVID-19 2020-06-15 Completed [facility] PFIZER VACCINE 00:00:00 [facility] SARS-COV-2 COVID-19 2020-06-15 Completed [facility] PFIZER VACCINE 00:00:00 [facility] SARS-COV-2 COVID-19 2020-06-15 Completed [facility] PFIZER VACCINE 00:00:00 [facility] SARS-COV-2 COVID-19 2020-06-15 Completed [facility] PFIZER VACCINE 00:00:00 [facility] SARS-COV-2 COVID-19 2020-06-15 Completed [facility] PFIZER VACCINE 00:00:00 [facility] SARS-COV-2 COVID-19 2020-06-15 Completed [facility] PFIZER VACCINE 00:00:00 [facility] SARS-COV-2 COVID-19 2020-06-15 Completed [facility] PFIZER VACCINE 00:00:00 [facility] SARS-COV-2 COVID-19 2020-06-15 Completed [facility] PFIZER VACCINE 00:00:00 [facility] SARS-COV-2 COVID-19 2020-06-15 Completed [facility] PFIZER VACCINE 00:00:00 [facility] SARS-COV-2 COVID-19 2020-06-15 Completed [facility] PFIZER VACCINE 00:00:00 [facility] SARS-COV-2 COVID-19 2020-06-15 Completed [facility] PFIZER VACCINE 00:00:00 [facility] SARS-COV-2 COVID-19 2020-06-15 Completed [facility] PFIZER VACCINE 00:00:00 [facility] SARS-COV-2 COVID-19 2020-06-15 Completed [facility] PFIZER VACCINE 00:00:00 [facility] SARS-COV-2 COVID-19 2020-06-15 Completed [facility] PFIZER VACCINE 00:00:00 [facility] Meningococcal B, OMV 2020-04-16 Completed [facility] 00:00:00 [facility] Meningococcal B, OMV 2020-04-16 Completed [facility] 00:00:00 [facility] Meningococcal B, OMV 2020-04-16 Completed [facility] 00:00:00 [facility] Meningococcal B, OMV 2020-04-16 Completed [facility] 00:00:00 [facility] Meningococcal B, OMV 2020-04-16 Completed [facility] 00:00:00 [facility] Meningococcal B, OMV 2020-04-16 Completed [facility] 00:00:00 [facility] Meningococcal B, OMV 2020-04-16 Completed [facility] 00:00:00 [facility] Meningococcal B, OMV 2020-04-16 Completed [facility] 00:00:00 [facility] Meningococcal B, OMV 2020-04-16 Completed [facility] 00:00:00 [facility] Meningococcal B, OMV 2020-04-16 Completed [facility] 00:00:00 [facility] Meningococcal B, OMV 2020-04-16 Completed [facility] 00:00:00 [facility] Meningococcal B, OMV 2020-04-16 Completed [facility] 00:00:00 [facility] Meningococcal B, OMV 2020-04-16 Completed [facility] 00:00:00 [facility] Meningococcal B, OMV 2020-04-16 Completed [facility] 00:00:00 [facility] Meningococcal B, OMV 2020-04-16 Completed [facility] 00:00:00 [facility] Meningococcal B, OMV 2020-04-16 Completed [facility] 00:00:00 [facility] Meningococcal B, OMV 2020-04-16 Completed [facility] 00:00:00 [facility] Meningococcal B, OMV 2020-04-16 Completed [facility] 00:00:00 [facility] Meningococcal B, OMV 2020-04-16 Completed [facility] 00:00:00 [facility] Meningococcal B, OMV 2020-04-16 Completed [facility] 00:00:00 [facility] Meningococcal B, OMV 2020-04-16 Completed [facility] 00:00:00 [facility] Meningococcal B, OMV 2020-04-16 Completed [facility] 00:00:00 [facility] Meningococcal B, OMV 2020-04-16 Completed [facility] 00:00:00 [facility] Meningococcal 2018-10-07 Completed [facility] Polysaccharide 00:00:00 [facility] (groups A, C, Y and Branc h W-135) conjugate vaccine (MCV4P) Meningococcal B, 2018-10-07 Completed [facility] Recombinant 00:00:00 [facility] Meningococcal 2018-10-07 Completed [facility] Polysaccharide 00:00:00 [facility] (groups A, C, Y and Branc h W-135) conjugate vaccine (MCV4P) Meningococcal B, 2018-10-07 Completed [facility] Recombinant 00:00:00 [facility] Meningococcal 2018-10-07 Completed [facility] Polysaccharide 00:00:00 [facility] (groups A, C, Y and Branc h W-135) conjugate vaccine (MCV4P) Meningococcal B, 2018-10-07 Completed [facility] Recombinant 00:00:00 [facility] Meningococcal 2018-10-07 Completed [facility] Polysaccharide 00:00:00 [facility] (groups A, C, Y and Branc h W-135) conjugate vaccine (MCV4P) Meningococcal B, 2018-10-07 Completed [facility] Recombinant 00:00:00 [facility] Meningococcal 2018-10-07 Completed [facility] Polysaccharide 00:00:00 [facility] (groups A, C, Y and Branc h W-135) conjugate vaccine (MCV4P) Meningococcal B, 2018-10-07 Completed [facility] Recombinant 00:00:00 [facility] Meningococcal 2018-10-07 Completed [facility] Polysaccharide 00:00:00 [facility] (groups A, C, Y and Branc h W-135) conjugate vaccine (MCV4P) Meningococcal B, 2018-10-07 Completed [facility] Recombinant 00:00:00 [facility] Meningococcal 2018-10-07 Completed [facility] Polysaccharide 00:00:00 [facility] (groups A, C, Y and Branc h W-135) conjugate vaccine (MCV4P) Meningococcal B, 2018-10-07 Completed [facility] Recombinant 00:00:00 [facility] Meningococcal 2018-10-07 Completed [facility] Polysaccharide 00:00:00 [facility] (groups A, C, Y and Branc h W-135) conjugate vaccine (MCV4P) Meningococcal B, 2018-10-07 Completed [facility] Recombinant 00:00:00 [facility] Meningococcal 2018-10-07 Completed [facility] Polysaccharide 00:00:00 [facility] (groups A, C, Y and Branc h W-135) conjugate vaccine (MCV4P) Meningococcal B, 2018-10-07 Completed [facility] Recombinant 00:00:00 [facility] Meningococcal 2018-10-07 Completed [facility] Polysaccharide 00:00:00 [facility] (groups A, C, Y and Branc h W-135) conjugate vaccine (MCV4P) Meningococcal B, 2018-10-07 Completed [facility] Recombinant 00:00:00 [facility] Meningococcal 2018-10-07 Completed [facility] Polysaccharide 00:00:00 [facility] (groups A, C, Y and Branc h W-135) conjugate vaccine (MCV4P) Meningococcal B, 2018-10-07 Completed [facility] Recombinant 00:00:00 [facility] Meningococcal 2018-10-07 Completed [facility] Polysaccharide 00:00:00 [facility] (groups A, C, Y and Branc h W-135) conjugate vaccine (MCV4P) Meningococcal B, 2018-10-07 Completed [facility] Recombinant 00:00:00 [facility] Meningococcal 2018-10-07 Completed [facility] Polysaccharide 00:00:00 [facility] (groups A, C, Y and Branc h W-135) conjugate vaccine (MCV4P) Meningococcal B, 2018-10-07 Completed [facility] Recombinant 00:00:00 [facility] Meningococcal 2018-10-07 Completed [facility] Polysaccharide 00:00:00 [facility] (groups A, C, Y and Branc h W-135) conjugate vaccine (MCV4P) Meningococcal B, 2018-10-07 Completed [facility] Recombinant 00:00:00 [facility] Meningococcal 2018-10-07 Completed [facility] Polysaccharide 00:00:00 [facility] (groups A, C, Y and Branc h W-135) conjugate vaccine (MCV4P) Meningococcal 2018-10-07 Completed [facility] Polysaccharide 00:00:00 [facility] (groups A, C, Y and Branc h W-135) conjugate vaccine (MCV4P) Meningococcal B, 2018-10-07 Completed [facility] Recombinant 00:00:00 [facility] Meningococcal B, 2018-10-07 Completed [facility] Recombinant 00:00:00 [facility] Meningococcal 2018-10-07 Completed [facility] Polysaccharide 00:00:00 [facility] (groups A, C, Y and Branc h W-135) conjugate vaccine (MCV4P) Meningococcal B, 2018-10-07 Completed [facility] Recombinant 00:00:00 [facility] Meningococcal 2018-10-07 Completed [facility] Polysaccharide 00:00:00 [facility] (groups A, C, Y and Branc h W-135) conjugate vaccine (MCV4P) Meningococcal B, 2018-10-07 Completed [facility] Recombinant 00:00:00 [facility] Meningococcal 2018-10-07 Completed [facility] Polysaccharide 00:00:00 [facility] (groups A, C, Y and Branc h W-135) conjugate vaccine (MCV4P) Meningococcal B, 2018-10-07 Completed [facility] Recombinant 00:00:00 [facility] Meningococcal 2018-10-07 Completed [facility] Polysaccharide 00:00:00 [facility] (groups A, C, Y and Branc h W-135) conjugate vaccine (MCV4P) Meningococcal B, 2018-10-07 Completed [facility] Recombinant 00:00:00 [facility] Meningococcal 2018-10-07 Completed [facility] Polysaccharide 00:00:00 [facility] (groups A, C, Y and Branc h W-135) conjugate vaccine (MCV4P) Meningococcal B, 2018-10-07 Completed [facility] Recombinant 00:00:00 [facility] Meningococcal 2018-10-07 Completed [facility] Polysaccharide 00:00:00 [facility] (groups A, C, Y and Branc h W-135) conjugate vaccine (MCV4P) Meningococcal B, 2018-10-07 Completed [facility] Recombinant 00:00:00 [facility] Meningococcal 2018-10-07 Completed [facility] Polysaccharide 00:00:00 [facility] (groups A, C, Y and Branc h W-135) conjugate vaccine (MCV4P) Meningococcal B, 2018-10-07 Completed [facility] Recombinant 00:00:00 [facility] Meningococcal 2018-10-07 Completed [facility] Polysaccharide 00:00:00 [facility] (groups A, C, Y and Branc h W-135) conjugate vaccine (MCV4P) Meningococcal B, 2018-10-07 Completed [facility] Recombinant 00:00:00 [facility] Meningococcal 2018-10-07 Completed [facility] Polysaccharide 00:00:00 [facility] (groups A, C, Y and Branc h W-135) conjugate vaccine (MCV4P) Meningococcal B, 2018-10-07 Completed [facility] Recombinant 00:00:00 [facility] Meningococcal 2018-10-07 Completed [facility] Polysaccharide 00:00:00 [facility] (groups A, C, Y and Branc h W-135) conjugate vaccine (MCV4P) Meningococcal B, 2018-10-07 Completed [facility] Recombinant 00:00:00 [facility] Meningococcal 2018-10-07 Completed [facility] Polysaccharide 00:00:00 [facility] (groups A, C, Y and Branc h W-135) conjugate vaccine (MCV4P) Meningococcal B, 2018-10-07 Completed [facility] Recombinant 00:00:00 [facility] Meningococcal 2018-10-07 Completed [facility] Polysaccharide 00:00:00 [facility] (groups A, C, Y and Branc h W-135) conjugate vaccine (MCV4P) Meningococcal B, 2018-10-07 Completed [facility] Recombinant 00:00:00 [facility] Meningococcal 2018-10-07 Completed [facility] Polysaccharide 00:00:00 [facility] (groups A, C, Y and Branc h W-135) conjugate vaccine (MCV4P) Meningococcal B, 2018-10-07 Completed [facility] Recombinant 00:00:00 [facility] Meningococcal 2018-10-07 Completed [facility] Polysaccharide 00:00:00 [facility] (groups A, C, Y and Branc h W-135) conjugate vaccine (MCV4P) Meningococcal B, 2018-10-07 Completed [facility] Recombinant 00:00:00 [facility] Meningococcal 2018-10-07 Completed [facility] Polysaccharide 00:00:00 [facility] (groups A, C, Y and Branc h W-135) conjugate vaccine (MCV4P) Meningococcal B, 2018-10-07 Completed [facility] Recombinant 00:00:00 [facility] Meningococcal 2018-10-07 Completed [facility] Polysaccharide 00:00:00 [facility] (groups A, C, Y and Branc h W-135) conjugate vaccine (MCV4P) Meningococcal B, 2018-10-07 Completed [facility] Recombinant 00:00:00 [facility] Meningococcal 2018-10-07 Completed [facility] Polysaccharide 00:00:00 [facility] (groups A, C, Y and Branc h W-135) conjugate vaccine (MCV4P) Meningococcal B, 2018-10-07 Completed [facility] Recombinant 00:00:00 [facility] Meningococcal 2018-10-07 Completed [facility] Polysaccharide 00:00:00 [facility] (groups A, C, Y and Branc h W-135) conjugate vaccine (MCV4P) Meningococcal B, 2018-10-07 Completed [facility] Recombinant 00:00:00 [facility] Meningococcal 2018-10-07 Completed [facility] Polysaccharide 00:00:00 [facility] (groups A, C, Y and Branc h W-135) conjugate vaccine (MCV4P) Meningococcal B, 2018-10-07 Completed [facility] Recombinant 00:00:00 [facility] Meningococcal 2018-10-07 Completed [facility] Polysaccharide 00:00:00 [facility] (groups A, C, Y and Branc h W-135) conjugate vaccine (MCV4P) Meningococcal B, 2018-10-07 Completed [facility] Recombinant 00:00:00 [facility] Meningococcal 2018-10-07 Completed [facility] Polysaccharide 00:00:00 [facility] (groups A, C, Y and Branc h W-135) conjugate vaccine (MCV4P) Meningococcal B, 2018-10-07 Completed [facility] Recombinant 00:00:00 [facility] Meningococcal 2018-10-07 Completed [facility] Polysaccharide 00:00:00 [facility] (groups A, C, Y and Branc h W-135) conjugate vaccine (MCV4P) Meningococcal B, 2018-10-07 Completed [facility] Recombinant 00:00:00 [facility] Meningococcal 2018-10-07 Completed [facility] Polysaccharide 00:00:00 [facility] (groups A, C, Y and Branc h W-135) conjugate vaccine (MCV4P) Meningococcal B, 2018-10-07 Completed [facility] Recombinant 00:00:00 [facility] Meningococcal 2018-10-07 Completed [facility] Polysaccharide 00:00:00 [facility] (groups A, C, Y and Branc h W-135) conjugate vaccine (MCV4P) Meningococcal B, 2018-10-07 Completed [facility] Recombinant 00:00:00 [facility] Meningococcal 2018-10-07 Completed [facility] Polysaccharide 00:00:00 [facility] (groups A, C, Y and Branc h W-135) conjugate vaccine (MCV4P) Meningococcal B, 2018-10-07 Completed [facility] Recombinant 00:00:00 [facility] Meningococcal 2018-10-07 Completed [facility] Polysaccharide 00:00:00 [facility] (groups A, C, Y and Branc h W-135) conjugate vaccine (MCV4P) Meningococcal B, 2018-10-07 Completed [facility] Recombinant 00:00:00 [facility] Meningococcal 2018-10-07 Completed [facility] Polysaccharide 00:00:00 [facility] (groups A, C, Y and Branc h W-135) conjugate vaccine (MCV4P) Meningococcal B, 2018-10-07 Completed [facility] Recombinant 00:00:00 [facility] Meningococcal 2018-10-07 Completed [facility] Polysaccharide 00:00:00 [facility] (groups A, C, Y and Branc h W-135) conjugate vaccine (MCV4P) Meningococcal B, 2018-10-07 Completed [facility] Recombinant 00:00:00 [facility] Meningococcal 2018-10-07 Completed [facility] Polysaccharide 00:00:00 [facility] (groups A, C, Y and Branc h W-135) conjugate vaccine (MCV4P) Meningococcal B, 2018-10-07 Completed [facility] Recombinant 00:00:00 [facility] Meningococcal 2018-10-07 Completed [facility] Polysaccharide 00:00:00 [facility] (groups A, C, Y and Branc h W-135) conjugate vaccine (MCV4P) Meningococcal B, 2018-10-07 Completed [facility] Recombinant 00:00:00 [facility] Meningococcal 2018-10-07 Completed [facility] Polysaccharide 00:00:00 [facility] (groups A, C, Y and Branc h W-135) conjugate vaccine (MCV4P) Meningococcal B, 2018-10-07 Completed [facility] Recombinant 00:00:00 [facility] Meningococcal 2018-10-07 Completed [facility] Polysaccharide 00:00:00 [facility] (groups A, C, Y and Branc h W-135) conjugate vaccine (MCV4P) Meningococcal B, 2018-10-07 Completed [facility] Recombinant 00:00:00 [facility] Meningococcal 2018-10-07 Completed [facility] Polysaccharide 00:00:00 [facility] (groups A, C, Y and Branc h W-135) conjugate vaccine (MCV4P) Meningococcal B, 2018-10-07 Completed [facility] Recombinant 00:00:00 [facility] Meningococcal 2018-10-07 Completed [facility] Polysaccharide 00:00:00 [facility] (groups A, C, Y and Branc h W-135) conjugate vaccine (MCV4P) Meningococcal B, 2018-10-07 Completed [facility] Recombinant 00:00:00 [facility] Meningococcal 2018-10-07 Completed [facility] Polysaccharide 00:00:00 [facility] (groups A, C, Y and Branc h W-135) conjugate vaccine (MCV4P) Meningococcal B, 2018-10-07 Completed [facility] Recombinant 00:00:00 [facility] Meningococcal 2018-10-07 Completed [facility] Polysaccharide 00:00:00 [facility] (groups A, C, Y and Branc h W-135) conjugate vaccine (MCV4P) Meningococcal B, 2018-10-07 Completed [facility] Recombinant 00:00:00 [facility] Meningococcal 2018-10-07 Completed [facility] Polysaccharide 00:00:00 [facility] (groups A, C, Y and Branc h W-135) conjugate vaccine (MCV4P) Meningococcal 2018-10-07 Completed [facility] Polysaccharide 00:00:00 [facility] (groups A, C, Y and Branc h W-135) conjugate vaccine (MCV4P) Meningococcal B, 2018-10-07 Completed [facility] Recombinant 00:00:00 [facility] Meningococcal B, 2018-10-07 Completed [facility] Recombinant 00:00:00 [facility] Meningococcal 2018-10-07 Completed [facility] Polysaccharide 00:00:00 [facility] (groups A, C, Y and Branc h W-135) conjugate vaccine (MCV4P) Meningococcal B, 2018-10-07 Completed [facility] Recombinant 00:00:00 [facility] Meningococcal 2018-10-07 Completed [facility] Polysaccharide 00:00:00 [facility] (groups A, C, Y and Branc h W-135) conjugate vaccine (MCV4P) Meningococcal B, 2018-10-07 Completed [facility] Recombinant 00:00:00 [facility] Meningococcal 2018-10-07 Completed [facility] Polysaccharide 00:00:00 [facility] (groups A, C, Y and Branc h W-135) conjugate vaccine (MCV4P) Meningococcal B, 2018-10-07 Completed [facility] Recombinant 00:00:00 [facility] Meningococcal 2018-10-07 Completed [facility] Polysaccharide 00:00:00 [facility] (groups A, C, Y and Branc h W-135) conjugate vaccine (MCV4P) Meningococcal B, 2018-10-07 Completed [facility] Recombinant 00:00:00 [facility] Meningococcal 2018-10-07 Completed [facility] Polysaccharide 00:00:00 [facility] (groups A, C, Y and Branc h W-135) conjugate vaccine (MCV4P) Meningococcal B, 2018-10-07 Completed [facility] Recombinant 00:00:00 [facility] Meningococcal 2018-10-07 Completed [facility] Polysaccharide 00:00:00 [facility] (groups A, C, Y and Branc h W-135) conjugate vaccine (MCV4P) Meningococcal B, 2018-10-07 Completed [facility] Recombinant 00:00:00 [facility] Meningococcal 2018-10-07 Completed [facility] Polysaccharide 00:00:00 [facility] (groups A, C, Y and Branc h W-135) conjugate vaccine (MCV4P) Meningococcal B, 2018-10-07 Completed [facility] Recombinant 00:00:00 [facility] Meningococcal 2018-10-07 Completed [facility] Polysaccharide 00:00:00 [facility] (groups A, C, Y and Branc h W-135) conjugate vaccine (MCV4P) Meningococcal B, 2018-10-07 Completed [facility] Recombinant 00:00:00 [facility] Meningococcal 2018-10-07 Completed [facility] Polysaccharide 00:00:00 [facility] (groups A, C, Y and Branc h W-135) conjugate vaccine (MCV4P) Meningococcal B, 2018-10-07 Completed [facility] Recombinant 00:00:00 [facility] Meningococcal 2018-10-07 Completed [facility] Polysaccharide 00:00:00 [facility] (groups A, C, Y and Branc h W-135) conjugate vaccine (MCV4P) Meningococcal B, 2018-10-07 Completed [facility] Recombinant 00:00:00 [facility] Meningococcal 2018-10-07 Completed [facility] Polysaccharide 00:00:00 [facility] (groups A, C, Y and Branc h W-135) conjugate vaccine (MCV4P) Meningococcal B, 2018-10-07 Completed [facility] Recombinant 00:00:00 [facility] Meningococcal 2018-10-07 Completed [facility] Polysaccharide 00:00:00 [facility] (groups A, C, Y and Branc h W-135) conjugate vaccine (MCV4P) Meningococcal B, 2018-10-07 Completed [facility] Recombinant 00:00:00 [facility] Meningococcal 2018-10-07 Completed [facility] Polysaccharide 00:00:00 [facility] (groups A, C, Y and Branc h W-135) conjugate vaccine (MCV4P) Meningococcal B, 2018-10-07 Completed [facility] Recombinant 00:00:00 [facility] Meningococcal 2018-10-07 Completed [facility] Polysaccharide 00:00:00 [facility] (groups A, C, Y and Branc h W-135) conjugate vaccine (MCV4P) Meningococcal B, 2018-10-07 Completed [facility] Recombinant 00:00:00 [facility] Meningococcal 2018-10-07 Completed [facility] Polysaccharide 00:00:00 [facility] (groups A, C, Y and Branc h W-135) conjugate vaccine (MCV4P) Meningococcal B, 2018-10-07 Completed [facility] Recombinant 00:00:00 [facility] Meningococcal 2018-10-07 Completed [facility] Polysaccharide 00:00:00 [facility] (groups A, C, Y and Branc h W-135) conjugate vaccine (MCV4P) Meningococcal B, 2018-10-07 Completed [facility] Recombinant 00:00:00 [facility] Meningococcal 2018-10-07 Completed [facility] Polysaccharide 00:00:00 [facility] (groups A, C, Y and Branc h W-135) conjugate vaccine (MCV4P) Meningococcal B, 2018-10-07 Completed [facility] Recombinant 00:00:00 [facility] Meningococcal 2018-10-07 Completed [facility] Polysaccharide 00:00:00 [facility] (groups A, C, Y and Branc h W-135) conjugate vaccine (MCV4P) Meningococcal B, 2018-10-07 Completed [facility] Recombinant 00:00:00 [facility] Meningococcal 2018-10-07 Completed [facility] Polysaccharide 00:00:00 [facility] (groups A, C, Y and Branc h W-135) conjugate vaccine (MCV4P) Meningococcal B, 2018-10-07 Completed [facility] Recombinant 00:00:00 [facility] Meningococcal 2018-10-07 Completed [facility] Polysaccharide 00:00:00 [facility] (groups A, C, Y and Branc h W-135) conjugate vaccine (MCV4P) Meningococcal B, 2018-10-07 Completed [facility] Recombinant 00:00:00 [facility] Meningococcal 2018-10-07 Completed [facility] Polysaccharide 00:00:00 [facility] (groups A, C, Y and Branc h W-135) conjugate vaccine (MCV4P) Meningococcal B, 2018-10-07 Completed [facility] Recombinant 00:00:00 [facility] Meningococcal 2018-10-07 Completed [facility] Polysaccharide 00:00:00 [facility] (groups A, C, Y and Branc h W-135) conjugate vaccine (MCV4P) Meningococcal B, 2018-10-07 Completed [facility] Recombinant 00:00:00 [facility] Meningococcal 2018-10-07 Completed [facility] Polysaccharide 00[facility]00:00 [facility] (groups A, C, Y and Branc h W-135) conjugate vaccine (MCV4P) Meningococcal B, 2018-10-07 Completed [facility] Recombinant 00:00:00 [facility] Meningococcal 2018-10-07 Completed [facility] Polysaccharide 00:00:00 [facility] (groups A, C, Y and Branc h W-135) conjugate vaccine (MCV4P) Meningococcal B, 2018-10-07 Completed [facility] Recombinant 00:00:00 [facility] Meningococcal 2018-10-07 Completed [facility] Polysaccharide 00:00:00 [facility] (groups A, C, Y and Branc h W-135) conjugate vaccine (MCV4P) Meningococcal B, 2018-10-07 Completed [facility] Recombinant 00:00:00 [facility] Meningococcal 2018-10-07 Completed [facility] Polysaccharide 00:00:00 [facility] (groups A, C, Y and Branc h W-135) conjugate vaccine (MCV4P) Meningococcal B, 2018-10-07 Completed [facility] Recombinant 00:00:00 [facility] Meningococcal 2018-10-07 Completed [facility] Polysaccharide 00:00:00 [facility] (groups A, C, Y and Branc h W-135) conjugate vaccine (MCV4P) Meningococcal B, 2018-10-07 Completed [facility] Recombinant 00:00:00 [facility] Meningococcal 2018-10-07 Completed [facility] Polysaccharide 00:00:00 [facility] (groups A, C, Y and Branc h W-135) conjugate vaccine (MCV4P) Meningococcal B, 2018-10-07 Completed [facility] Recombinant 00:00:00 [facility] Meningococcal 2018-10-07 Completed [facility] Polysaccharide 00:00:00 [facility] (groups A, C, Y and Branc h W-135) conjugate vaccine (MCV4P) Meningococcal B, 2018-10-07 Completed [facility] Recombinant 00:00:00 [facility] Influenza Virus 2018-04-06 Completed [facility] [...] (varivax)(chicken 00:00:00 [facility] Meningococcal 2013-04-18 Completed [facility] Polysaccharide 00:00:00 [facility] (groups A, C, Y and Branc h W-135) conjugate vaccine (MCV4P) Tdap 2013-04-18 Completed [facility] 00:00:00 [facility] Meningococcal 2013-04-18 Completed [facility] Polysaccharide 00:00:00 [facility] (groups A, C, Y and Branc h W-135) conjugate vaccine (MCV4P) Meningococcal 2013-04-18 Completed [facility] Polysaccharide 00:00:00 [facility] (groups A, C, Y and Branc h W-135) conjugate vaccine (MCV4P) Tdap 2013-04-18 Completed [facility] 00:00:00 [facility] Meningococcal 2013-04-18 Completed [facility] Polysaccharide 00:00:00 [facility] (groups A, C, Y and Branc h W-135) conjugate vaccine (MCV4P) Tdap 2013-04-18 Completed [facility] 00:00:00 [facility] Tdap 2013-04-18 Completed [facility] 00:00:00 [facility] Meningococcal 2013-04-18 Completed [facility] Polysaccharide 00:00:00 [facility] (groups A, C, Y and Branc h W-135) conjugate vaccine (MCV4P) Tdap 2013-04-18 Completed [facility] 00:00:00 [facility] Meningococcal 2013-04-18 Completed [facility] Polysaccharide 00:00:00 [facility] (groups A, C, Y and Branc h W-135) conjugate vaccine (MCV4P) Tdap 2013-04-18 Completed [facility] 00:00:00 [facility] Meningococcal 2013-04-18 Completed [facility] Polysaccharide 00:00:00 [facility] (groups A, C, Y and Branc h W-135) conjugate vaccine (MCV4P) Tdap 2013-04-18 Completed [facility] 00:00:00 [facility] Meningococcal 2013-04-18 Completed [facility] Polysaccharide 00:00:00 [facility] (groups A, C, Y and Branc h W-135) conjugate vaccine (MCV4P) Tdap 2013-04-18 Completed [facility] 00:00:00 [facility] Meningococcal 2013-04-18 Completed [facility] Polysaccharide 00:00:00 [facility] (groups A, C, Y and Branc h W-135) conjugate vaccine (MCV4P) Tdap 2013-04-18 Completed [facility] 00:00:00 [facility] Meningococcal 2013-04-18 Completed [facility] Polysaccharide 00:00:00 [facility] (groups A, C, Y and Branc h W-135) conjugate vaccine (MCV4P) TDAP 2013-04-18 Completed [facility] 00:00:00 [facility] Meningococcal 2013-04-18 Completed [facility] Polysaccharide 00:00:00 [facility] (groups A, C, Y and Branc h W-135) conjugate vaccine (MCV4P) TDAP 2013-04-18 Completed [facility] 00:00:00 [facility] Meningococcal 2013-04-18 Completed [facility] Polysaccharide 00:00:00 [facility] (groups A, C, Y and Branc h W-135) conjugate vaccine (MCV4P) Meningococcal 2013-04-18 Completed [facility] Polysaccharide 00:00:00 [facility] (groups A, C, Y and Branc h W-135) conjugate vaccine (MCV4P) TDAP 2013-04-18 Completed [facility] 00:00:00 [facility] Meningococcal 2013-04-18 Completed [facility] Polysaccharide 00:00:00 [facility] (groups A, C, Y and Branc h W-135) conjugate vaccine (MCV4P) TDAP 2013-04-18 Completed [facility] 00:00:00 [facility] Tdap 2013-04-18 Completed [facility] 00:00:00 [facility] Meningococcal 2013-04-18 Completed [facility] Polysaccharide 00:00:00 [facility] (groups A, C, Y and Branc h W-135) conjugate vaccine (MCV4P) TDAP 2013-04-18 Completed [facility] 00:00:00 [facility] Meningococcal 2013-04-18 Completed [facility] Polysaccharide 00:00:00 [facility] (groups A, C, Y and Branc h W-135) conjugate vaccine (MCV4P) TDAP 2013-04-18 Completed [facility] 00:00:00 [facility] Meningococcal 2013-04-18 Completed [facility] Polysaccharide 00:00:00 [facility] (groups A, C, Y and Branc h W-135) conjugate vaccine (MCV4P) TDAP 2013-04-18 Completed [facility] 00:00:00 [facility] Meningococcal 2013-04-18 Completed [facility] Polysaccharide 00:00:00 [facility] (groups A, C, Y and Branc h W-135) conjugate vaccine (MCV4P) TDAP 2013-04-18 Completed [facility] 00:00:00 [facility] Meningococcal 2013-04-18 Completed [facility] Polysaccharide 00:00:00 [facility] (groups A, C, Y and Branc h W-135) conjugate vaccine (MCV4P) TDAP 2013-04-18 Completed [facility] 00:00:00 [facility] Meningococcal 2013-04-18 Completed [facility] Polysaccharide 00:00:00 [facility] (groups A, C, Y and Branc h W-135) conjugate vaccine (MCV4P) TDAP 2013-04-18 Completed [facility] 00:00:00 [facility] Meningococcal 2013-04-18 Completed [facility] Polysaccharide 00:00:00 [facility] (groups A, C, Y and Branc h W-135) conjugate vaccine (MCV4P) TDAP 2013-04-18 Completed [facility] 00:00:00 [facility] Meningococcal 2013-04-18 Completed [facility] Polysaccharide 00:00:00 [facility] (groups A, C, Y and Branc h W-135) conjugate vaccine (MCV4P) TDAP 2013-04-18 Completed [facility] 00:00:00 [facility] Meningococcal 2013-04-18 Completed [facility] Polysaccharide 00:00:00 [facility] (groups A, C, Y and Branc h W-135) conjugate vaccine (MCV4P) TDAP 2013-04-18 Completed [facility] 00:00:00 [facility] Meningococcal 2013-04-18 Completed [facility] Polysaccharide 00:00:00 [facility] (groups A, C, Y and Branc h W-135) conjugate vaccine (MCV4P) Meningococcal 2013-04-18 Completed [facility] Polysaccharide 00:00:00 [facility] (groups A, C, Y and Branc h W-135) conjugate vaccine (MCV4P) TDAP 2013-04-18 Completed [facility] 00:00:00 [facility] Meningococcal 2013-04-18 Completed [facility] Polysaccharide 00:00:00 [facility] (groups A, C, Y and Branc h W-135) conjugate vaccine (MCV4P) Tdap 2013-04-18 Completed [facility] 00:00:00 [facility] TDAP 2013-04-18 Completed [facility] 00:00:00 [facility] Meningococcal 2013-04-18 Completed [facility] Polysaccharide 00:00:00 [facility] (groups A, C, Y and Branc h W-135) conjugate vaccine (MCV4P) TDAP 2013-04-18 Completed [facility] 00:00:00 [facility] Meningococcal 2013-04-18 Completed [facility] Polysaccharide 00:00:00 [facility] (groups A, C, Y and Branc h W-135) conjugate vaccine (MCV4P) TDAP 2013-04-18 Completed [facility] 00:00:00 [facility] Meningococcal 2013-04-18 Completed [facility] Polysaccharide 00:00:00 [facility] (groups A, C, Y and Branc h W-135) conjugate vaccine (MCV4P) TDAP 2013-04-18 Completed [facility] 00:00:00 [facility] Meningococcal 2013-04-18 Completed [facility] Polysaccharide 00:00:00 [facility] (groups A, C, Y and Branc h W-135) conjugate vaccine (MCV4P) TDAP 2013-04-18 Completed [facility] 00:00:00 [facility] Meningococcal 2013-04-18 Completed [facility] Polysaccharide 00:00:00 [facility] (groups A, C, Y and Branc h W-135) conjugate vaccine (MCV4P) TDAP 2013-04-18 Completed [facility] 00:00:00 [facility] Meningococcal 2013-04-18 Completed [facility] Polysaccharide 00:00:00 [facility] (groups A, C, Y and Branc h W-135) conjugate vaccine (MCV4P) TDAP 2013-04-18 Completed [facility] 00:00:00 [facility] Meningococcal 2013-04-18 Completed [facility] Polysaccharide 00:00:00 [facility] (groups A, C, Y and Branc h W-135) conjugate vaccine (MCV4P) Meningococcal 2013-04-18 Completed [facility] Polysaccharide 00:00:00 [facility] (groups A, C, Y and Branc h W-135) conjugate vaccine (MCV4P) TDAP 2013-04-18 Completed [facility] 00:00:00 [facility] Tdap 2013-04-18 Completed [facility] 00:00:00 [facility] Meningococcal 2013-04-18 Completed [facility] Polysaccharide 00:00:00 [facility] (groups A, C, Y and Branc h W-135) conjugate vaccine (MCV4P) TDAP 2013-04-18 Completed [facility] 00:00:00 [facility] Meningococcal 2013-04-18 Completed [facility] Polysaccharide 00:00:00 [facility] (groups A, C, Y and Branc h W-135) conjugate vaccine (MCV4P) TDAP 2013-04-18 Completed [facility] 00:00:00 [facility] Meningococcal 2013-04-18 Completed [facility] Polysaccharide 00:00:00 [facility] (groups A, C, Y and Branc h W-135) conjugate vaccine (MCV4P) TDAP 2013-04-18 Completed [facility] 00:00:00 [facility] Meningococcal 2013-04-18 Completed [facility] Polysaccharide 00:00:00 [facility] (groups A, C, Y and Branc h W-135) conjugate vaccine (MCV4P) TDAP 2013-04-18 Completed [facility] 00:00:00 [facility] Meningococcal 2013-04-18 Completed [facility] Polysaccharide 00:00:00 [facility] (groups A, C, Y and Branc h W-135) conjugate vaccine (MCV4P) TDAP 2013-04-18 Completed [facility] 00:00:00 [facility] Meningococcal 2013-04-18 Completed [facility] Polysaccharide 00:00:00 [place] [facility] (groups A, C, Y and Branc h W-135) conjugate vaccine (MCV4P) TDAP 2013-04-18 Completed [facility] 00:00:00 [facility] Meningococcal 2013-04-18 Completed [facility] Polysaccharide 00:00:00 [facility] (groups A, C, Y and Branc h W-135) conjugate vaccine (MCV4P) TDAP 2013-04-18 Completed [facility] 00:00:00 [facility] Meningococcal 2013-04-18 Completed [facility] Polysaccharide 00:00:00 [place] [facility] (groups A, C, Y and Branc h W-135) conjugate vaccine (MCV4P) TDAP 2013-04-18 Completed [facility] 00:00:00 [facility] Meningococcal 2013-04-18 Completed [facility] Polysaccharide 00:00:00 [facility] (groups A, C, Y and Branc h W-135) conjugate vaccine (MCV4P) Meningococcal 2013-04-18 Completed [facility] Polysaccharide 00:00:00 [facility] (groups A, C, Y and Branc h W-135) conjugate vaccine (MCV4P) TDAP 2013-04-18 Completed [facility] 00:00:00 [facility] Meningococcal 2013-04-18 Completed [facility] Polysaccharide 00:00:00 [facility] (groups A, C, Y and Branc h W-135) conjugate vaccine (MCV4P) TDAP 2013-04-18 Completed [facility] 00:00:00 [facility] Tdap 2013-04-18 Completed [facility] 00:00:00 [facility] Meningococcal 2013-04-18 Completed [facility] Polysaccharide 00:00:00 [place] [facility] (groups A, C, Y and Branc h W-135) conjugate vaccine (MCV4P) TDAP 2013-04-18 Completed [facility] 00:00:00 [facility] Meningococcal 2013-04-18 Completed [facility] Polysaccharide 00:00:00 [place] [facility] (groups A, C, Y and Branc h W-135) conjugate vaccine (MCV4P) TDAP 2013-04-18 Completed [facility] 00:00:00 [facility] Meningococcal 2013-04-18 Completed [facility] Polysaccharide 00:00:00 [place] [facility] (groups A, C, Y and Branc h W-135) conjugate vaccine (MCV4P) TDAP 2013-04-18 Completed [facility] 00:00:00 [facility] Meningococcal 2013-04-18 Completed [facility] Polysaccharide 00:00:00 [facility] (groups A, C, Y and Branc h W-135) conjugate vaccine (MCV4P) TDAP 2013-04-18 Completed [facility] 00:00:00 [facility] Meningococcal 2013-04-18 Completed [facility] Polysaccharide 00:00:00 [place] [facility] (groups A, C, Y and Branc h W-135) conjugate vaccine (MCV4P) Meningococcal 2013-04-18 Completed [facility] Polysaccharide 00:00:00 [place] [facility] (groups A, C, Y and Branc h W-135) conjugate vaccine (MCV4P) TDAP 2013-04-18 Completed [facility] 00:00:00 [facility] Meningococcal 2013-04-18 Completed [facility] Polysaccharide 00:00:00 [place] [facility] (groups A, C, Y and Branc h W-135) conjugate vaccine (MCV4P) TDAP 2013-04-18 Completed [facility] 00:00:00 [facility] Tdap 2013-04-18 Completed [facility] 00:00:00 [facility] Meningococcal 2013-04-18 Completed [facility] Polysaccharide 00:00:00 [place] [facility] (groups A, C, Y and Branc h W-135) conjugate vaccine (MCV4P) TDAP 2013-04-18 Completed [facility] 00:00:00 [facility] Meningococcal 2013-04-18 Completed [facility] Polysaccharide 00:00:00 [place] [facility] (groups A, C, Y and Branc h W-135) conjugate vaccine (MCV4P) TDAP 2013-04-18 Completed [facility] 00:00:00 [facility] Meningococcal 2013-04-18 Completed [facility] Polysaccharide 00:00:00 [place] [facility] (groups A, C, Y and Branc h W-135) conjugate vaccine (MCV4P) TDAP 2013-04-18 Completed [facility] 00:00:00 [facility] Meningococcal 2013-04-18 Completed [facility] Polysaccharide 00:00:00 [place] [facility] (groups A, C, Y and Branc h W-135) conjugate vaccine (MCV4P) TDAP 2013-04-18 Completed [facility] 00:00:00 [facility] Meningococcal 2013-04-18 Completed [facility] Polysaccharide 00:00:00 [place] [facility] (groups A, C, Y and Branc h W-135) conjugate vaccine (MCV4P) TDAP 2013-04-18 Completed [facility] 00:00:00 [facility] Meningococcal 2013-04-18 Completed [facility] Polysaccharide 00:00:00 [place] [facility] (groups A, C, Y and Branc h W-135) conjugate vaccine (MCV4P) TDAP 2013-04-18 Completed [facility] 00:00:00 [facility] Meningococcal 2013-04-18 Completed [facility] Polysaccharide 00:00:00 [place] [facility] (groups A, C, Y and Branc h W-135) conjugate vaccine (MCV4P) Meningococcal 2013-04-18 Completed [facility] Polysaccharide 00:00:00 [facility] (groups A, C, Y and Branc h W-135) conjugate vaccine (MCV4P) TDAP 2013-04-18 Completed [facility] 00:00:00 [facility] Meningococcal 2013-04-18 Completed [facility] Polysaccharide 00:00:00 [facility] (groups A, C, Y and Branc h W-135) conjugate vaccine (MCV4P) TDAP 2013-04-18 Completed [facility] 00:00:00 [facility] Tdap 2013-04-18 Completed [facility] 00:00:00 [facility] Meningococcal 2013-04-18 Completed [facility] Polysaccharide 00:00:00 [place] [facility] (groups A, C, Y and Branc h W-135) conjugate vaccine (MCV4P) TDAP 2013-04-18 Completed [facility] 00:00:00 [facility] Meningococcal 2013-04-18 Completed [facility] Polysaccharide 00:00:00 [place] [facility] (groups A, C, Y and Branc h W-135) conjugate vaccine (MCV4P) TDAP 2013-04-18 Completed [facility] 00:00:00 [facility] Meningococcal 2013-04-18 Completed [facility] Polysaccharide 00:00:00 [place] [facility] (groups A, C, Y and Branc h W-135) conjugate vaccine (MCV4P) TDAP 2013-04-18 Completed [facility] 00:00:00 [facility] Meningococcal 2013-04-18 Completed [facility] Polysaccharide 00:00:00 [place] [facility] (groups A, C, Y and Branc h W-135) conjugate vaccine (MCV4P) TDAP 2013-04-18 Completed [facility] 00:00:00 [facility] Meningococcal 2013-04-18 Completed [facility] Polysaccharide 00:00:00 [place] [facility] (groups A, C, Y and Branc h W-135) conjugate vaccine (MCV4P) TDAP 2013-04-18 Completed [facility] 00:00:00 [facility] Meningococcal 2013-04-18 Completed [facility] Polysaccharide 00:00:00 [place] [facility] (groups A, C, Y and Branc h W-135) conjugate vaccine (MCV4P) Tdap 2013-04-18 Completed [facility] 00:00:00 [facility] Meningococcal 2013-04-18 Completed [facility] Polysaccharide 00:00:00 [place] [facility] (groups A, C, Y and Branc h W-135) conjugate vaccine (MCV4P) Tdap 2013-04-18 Completed [facility] 00:00:00 [facility] Meningococcal 2013-04-18 Completed [facility] Polysaccharide 00:00:00 [place] [facility] (groups A, C, Y and Branc h W-135) conjugate vaccine (MCV4P) Tdap 2013-04-18 Completed [facility] 00:00:00 [facility] Meningococcal 2013-04-18 Completed [facility] Polysaccharide 00:00:00 [place] [facility] (groups A, C, Y and Branc h W-135) conjugate vaccine (MCV4P) Tdap 2013-04-18 Completed [facility] 00:00:00 [facility] Meningococcal 2013-04-18 Completed [facility] Polysaccharide 00:00:00 [place] [facility] (groups A, C, Y and Branc h W-135) conjugate vaccine (MCV4P) Tdap 2013-04-18 Completed [facility] 00:00:00 [facility] Meningococcal 2013-04-18 Completed [facility] Polysaccharide 00:00:00 [place] [facility] (groups A, C, Y and Branc h W-135) conjugate vaccine (MCV4P) Tdap 2013-04-18 Completed [facility] 00:00:00 [facility] Meningococcal 2013-04-18 Completed [facility] Polysaccharide 00:00:00 [place] [facility] (groups A, C, Y and Branc h W-135) conjugate vaccine (MCV4P) Meningococcal 2013-04-18 Completed [facility] Polysaccharide 00:00:00 [place] [facility] (groups A, C, Y and Branc h W-135) conjugate vaccine (MCV4P) Tdap 2013-04-18 Completed [facility] 00:00:00 [facility] Tdap 2013-04-18 Completed [facility] 00:00:00 [facility] Meningococcal 2013-04-18 Completed [facility] Polysaccharide 00:00:00 [place] [facility] (groups A, C, Y and Branc h W-135) conjugate vaccine (MCV4P) Tdap 2013-04-18 Completed [facility] 00:00:00 [facility] Meningococcal 2013-04-18 Completed [facility] Polysaccharide 00:00:00 [facility] (groups A, C, Y and Branc h W-135) conjugate vaccine (MCV4P) Tdap 2013-04-18 Completed [facility] 00:00:00 [facility] Meningococcal 2013-04-18 Completed [facility] Polysaccharide 00:00:00 [facility] (groups A, C, Y and Branc h W-135) conjugate vaccine (MCV4P) Tdap 2013-04-18 Completed [facility] 00:00:00 [facility] Meningococcal 2013-04-18 Completed [facility] Polysaccharide 00:00:00 [facility] (groups A, C, Y and Branc h W-135) conjugate vaccine (MCV4P) Tdap 2013-04-18 Completed [facility] 00:00:00 [facility] Meningococcal 2013-04-18 Completed [facility] Polysaccharide 00:00:00 [place] [facility] (groups A, C, Y and Branc h W-135) conjugate vaccine (MCV4P) Tdap 2013-04-18 Completed [facility] 00:00:00 [facility] Meningococcal 2013-04-18 Completed [facility] Polysaccharide 00:00:00 [place] [facility] (groups A, C, Y and Branc h W-135) conjugate vaccine (MCV4P) Tdap 2013-04-18 Completed [facility] 00:00:00 [facility] Meningococcal 2013-04-18 Completed [facility] Polysaccharide 00:00:00 [place] [facility] (groups A, C, Y and Branc h W-135) conjugate vaccine (MCV4P) Tdap 2013-04-18 Completed [facility] 00:00:00 [facility] Meningococcal 2013-04-18 Completed [facility] Polysaccharide 00:00:00 [place] [facility] (groups A, C, Y and Branc h W-135) conjugate vaccine (MCV4P) Tdap 2013-04-18 Completed [facility] 00:00:00 [facility] Meningococcal 2013-04-18 Completed [facility] Polysaccharide 00:00:00 [place] [facility] (groups A, C, Y and Branc h W-135) conjugate vaccine (MCV4P) Tdap 2013-04-18 Completed [facility] 00:00:00 [facility] HPV 2012-11-29 Completed [facility] [...] (IPV/OPV) 2006-04-20 Completed [facility] 00:00:00 [facility] Varicella 2006-04-20 Completed [facility] of (varivax)(chicken 00:00:00 [facility] pox[facility] DTAP 2006-04-20 Completed [facility] 00:00:00 [facility] MMR 2006-04-20 Completed [facility] 00:00:00 [facility] Polio (IPV/OPV) 2006-04-20 Completed [facility] 00:00:00 [facility] Varicella 2006-04-20 Completed [facility] (varivax)(chicken 00:00:00 [facility]ox[facility] DTAP 2006-04-20 Completed [facility] 00:00:00 [facility] MMR 2006-04-20 Completed [facility] 00:00:00 [facility] Polio (IPV/OPV) 2006-04-20 Completed [facility] 00:00:00 [facility] Polio (IPV/OPV) 2006-04-20 Completed [facility] 00:00:00 [facility] Varicella 2006-04-20 Completed [facility] (varivax)(chicken 00:00:00 [facility]ox[facility] DTAP 2006-04-20 Completed [facility] 00:00:00 [facility] MMR 2006-04-20 Completed [facility] 00:00:00 [facility] Varicella 2006-04-20 Completed [facility] (varivax)(chicken 00:00:00 [facility] DTAP 2006-04-20 Completed [facility] 00:00:00 [facility] MMR 2006-04-20 Completed [facility] 00:00:00 [facility] Polio (IPV/OPV) 2006-04-20 Completed [facility] 00:00:00 [facility] Varicella 2006-04-20 Completed [facility] (varivax)(chicken 00:00:00 [facility] DTAP 2006-04-20 Completed [facility] 00:00:00 [facility] MMR 2006-04-20 Completed [facility] 00:00:00 [facility] Polio (IPV/OPV) 2006-04-20 Completed [facility] 00:00:00 [facility] Varicella 2006-04-20 Completed [facility] (varivax)(chicken 00:00:00 [facility] DTAP 2006-04-20 Completed [facility] 00:00:00 [facility] MMR 2006-04-20 Completed [facility] 00:00:00 [facility] Polio (IPV/OPV) 2006-04-20 Completed [facility] 00:00:00 [facility] Varicella 2006-04-20 Completed [facility] (varivax)(chicken 00:00:00 [facility] DTAP 2006-04-20 Completed [facility] 00:00:00 [facility] MMR 2006-04-20 Completed [facility] 00:00:00 [facility] Polio (IPV/OPV) 2006-04-20 Completed [facility] 00:00:00 [facility] Varicella 2006-04-20 Completed [facility] ([facility]ivax)([facility] 00:00:00 [place] [facility] DTAP 2006-04-20 Completed [facility] 00:00:00 [facility] MMR 2006-04-20 Completed [facility] 00:00:00 [facility] Polio (IPV/OPV) 2006-04-20 Completed [facility] 00:00:00 [facility] Varicella 2006-04-20 Completed [facility] ([facility]ivax[facility] 00:00:00 [place] [facility] DTAP 2006-04-20 Completed [facility] 00:00:00 [facility] MMR 2006-04-20 Completed [facility] 00:00:00 [facility] Polio (IPV/OPV) 2006-04-20 Completed [facility] 00:00:00 [facility] Varicella 2006-04-20 Completed [facility] (varivax)([facility] 00:00:00 [place] [facility] DTAP 2006-04-20 Completed [facility] 00:00:00 [facility] MMR 2006-04-20 Completed [facility] 00:00:00 [facility] Polio (IPV/OPV) 2006-04-20 Completed [facility] 00:00:00 [facility] Varicella 2006-04-20 Completed [facility] (varivax)([facility] 00:00:00 [place] [facility] DTAP 2006-04-20 Completed [facility] 00:00:00 [facility] MMR 2006-04-20 Completed [facility] 00:00:00 [facility] Polio (IPV/OPV) 2006-04-20 Completed [facility] 00:00:00 [facility] Varicella 2006-04-20 Completed [facility] (varivax)([facility] 00:00:00 [place] [facility] DTAP 2006-04-20 Completed [facility] 00:00:00 [facility] MMR 2006-04-20 Completed [facility] 00:00:00 [facility] Polio (IPV/OPV) 2006-04-20 Completed [facility] 00:00:00 [facility] Polio (IPV/OPV) 2006-04-20 Completed [facility] 00:00:00 [facility] Varicella 2006-04-20 Completed [facility] (varivax)([facility] 00[facility]00:00 [place] [facility] DTAP 2006-04-20 Completed [facility] 00:00:00 [facility] MMR 2006-04-20 Completed [facility] 00:00:00 [facility] Varicella 2006-04-20 Completed [facility] (varivax)([facility] 00:00:00 [place] [facility] DTAP 2006-04-20 Completed [facility] 00:00:00 [facility] Polio (IPV/OPV) 2006-04-20 Completed [facility] 00:00:00 [facility] Varicella 2006-04-20 Completed [facility] (varivax)([facility] 00:00:00 [place] [facility] DTAP 2006-04-20 Completed [facility] 00:00:00 [facility] MMR 2006-04-20 Completed [facility] 00:00:00 [facility] MMR 2006-04-20 Completed [facility] 00:00:00 [facility] Polio (IPV/OPV) 2006-04-20 Completed [facility] 00:00:00 [facility] Varicella 2006-04-20 Completed [facility] (varivax)([facility] 00:00:00 [place] [facility] DTAP 2006-04-20 Completed [facility] 00:00:00 [facility] MMR 2006-04-20 Completed [facility] 00:00:00 [facility] Polio (IPV/OPV) 2006-04-20 Completed [facility] 00:00:00 [facility] Varicella 2006-04-20 Completed [facility] (varivax)([facility] 00:00:00 [place] [facility] DTAP 2006-04-20 Completed [facility] 00:00:00 [facility] MMR 2006-04-20 Completed [facility] 00:00:00 [facility] Polio (IPV/OPV) 2006-04-20 Completed [facility] 00:00:00 [facility] Varicella 2006-04-20 Completed [facility] (varivax)([facility] 00:00:00 [place] [facility] DTAP 2006-04-20 Completed [facility] 00:00:00 [facility] MMR 2006-04-20 Completed [facility] 00:00:00 [facility] Polio (IPV/OPV) 2006-04-20 Completed [facility] 00:00:00 [facility] Varicella 2006-04-20 Completed [facility] (varivax)(chicken 00:00:[address] [facility] edical pox) Branch DTAP 2006-04-20 Completed [facility] 00:00:00 [facility] MMR 2006-04-20 Completed [facility] 00:00:00 [facility] Polio (IPV/OPV) 2006-04-20 Completed [facility] 00:00:00 [facility] Varicella 2006-04-20 Completed [facility] (varivax)([facility] 00:00:00 [place] [facility] DTAP 2006-04-20 Completed [facility] 00:00:00 [facility] MMR 2006-04-20 Completed [facility] 00:00:00 [facility] Polio (IPV/OPV) 2006-04-20 Completed [facility] 00:00:00 [facility] Varicella 2006-04-20 Completed [facility] (varivax)([facility] 00:00:00 [place] [facility] DTAP 2006-04-20 Completed [facility] 00:00:00 [facility] MMR 2006-04-20 Completed [facility] 00:00:00 [facility] Polio (IPV/OPV) 2006-04-20 Completed [facility] 00:00:00 [facility] Varicella 2006-04-20 Completed [facility] (varivax)([facility]icken 00:00:00 [place] [facility] DTAP 2006-04-20 Completed [facility] 00:00:00 [facility] MMR 2006-04-20 Completed [facility] 00:00:00 [facility] Polio (IPV/OPV) 2006-04-20 Completed [facility] 00:00:00 [facility] Varicella 2006-04-20 Completed [facility] (varivax)([facility] 00:00:00 [place] [facility] DTAP 2006-04-20 Completed [facility] 00:00:00 [facility] MMR 2006-04-20 Completed [facility] 00:00:00 [facility] Polio (IPV/OPV) 2006-04-20 Completed [facility] 00:00:00 [facility] Varicella 2006-04-20 Completed [facility] (varivax)([facility]icken 00:00:00 [place] [facility] DTAP 2006-04-20 Completed [facility] 00:00:00 [facility] MMR 2006-04-20 Completed [facility] 00:00:00 [facility] Polio (IPV/OPV) 2006-04-20 Completed [facility] 00:00:00 [facility] Polio (IPV/OPV) 2006-04-20 Completed [facility] 00:00:00 [facility] Varicella 2006-04-20 Completed [facility] (varivax)([facility] 00:00:00 [place] [facility] DTAP 2006-04-20 Completed [facility] 00:00:00 [facility] MMR 2006-04-20 Completed [facility] 00:00:00 [facility] Varicella 2006-04-20 Completed [facility] (varivax)([facility] 00:00:00 [place] [facility] DTAP 2006-04-20 Completed [facility] 00:00:00 [facility] MMR 2006-04-20 Completed [facility] 00:00:00 [facility] Polio (IPV/OPV) 2006-04-20 Completed [facility] 00:00:00 [facility] Varicella 2006-04-20 Completed [facility] (varivax)([facility] 00:00:00 [place] [facility] DTAP 2006-04-20 Completed [facility] 00:00:00 [facility] MMR 2006-04-20 Completed [facility] 00:00:00 [facility] Polio (IPV/OPV) 2006-04-20 Completed [facility] 00:00:00 [facility] Varicella 2006-04-20 Completed [facility] (varivax)([facility] 00:00:00 [place] [facility] DTAP 2006-04-20 Completed [facility] 00:00:00 [facility] MMR 2006-04-20 Completed [facility] 00:00:00 [facility] Polio (IPV/OPV) 2006-04-20 Completed [facility] 00:00:00 [facility] Varicella 2006-04-20 Completed [facility] (varivax)([facility] 00:00:00 [place] [facility] DTAP 2006-04-20 Completed [facility] 00:00:00 [facility] MMR 2006-04-20 Completed [facility] 00:00:00 [facility] Polio (IPV/OPV) 2006-04-20 Completed [facility] 00:00:00 [facility] Varicella 2006-04-20 Completed [facility] (varivax)([facility]icken 00:00:00 [place] [facility] DTAP 2006-04-20 Completed [facility] 00:00:00 [facility] MMR 2006-04-20 Completed [facility] 00:00:00 [facility] Polio (IPV/OPV) 2006-04-20 Completed [facility] 00:00:00 [facility] Varicella 2006-04-20 Completed [facility] (varivax)([facility]icken 00:00:00 [place] [facility] DTAP 2006-04-20 Completed [facility] 00:00:00 [facility] MMR 2006-04-20 Completed [facility] 00:00:00 [facility] Polio (IPV/OPV) 2006-04-20 Completed [facility] 00:00:00 [facility] Varicella 2006-04-20 Completed [facility] (varivax)([facility]icken 00:00:00 [place] [facility] DTAP 2006-04-20 Completed [facility] 00:00:00 [facility] MMR 2006-04-20 Completed [facility] 00:00:00 [facility] Polio (IPV/OPV) 2006-04-20 Completed [facility] 00:00:00 [facility] Varicella 2006-04-20 Completed [facility] (varivax)([facility]icken 00:00:00 [place] [facility] DTAP 2006-04-20 Completed [facility] 00:00:00 [facility] MMR 2006-04-20 Completed [facility] 00:00:00 [facility] Polio (IPV/OPV) 2006-04-20 Completed [facility] 00:00:00 [facility] Polio (IPV/OPV) 2006-04-20 Completed [facility] 00:00:00 [facility] Varicella 2006-04-20 Completed [facility] (varivax)([facility]icken 00:00:00 [place] [facility] DTAP 2006-04-20 Completed [facility] 00:00:00 [facility] MMR 2006-04-20 Completed [facility] 00:00:00 [facility] Varicella 2006-04-20 Completed [facility] (varivax)([facility]icken 00:00:00 [place] [facility] DTAP 2006-04-20 Completed [facility] 00:00:00 [facility] MMR 2006-04-20 Completed [facility] 00:00:00 [facility] Polio (IPV/OPV) 2006-04-20 Completed [facility] 00:00:00 [facility] Varicella 2006-04-20 Completed [facility] (varivax)([facility]icken 00:00:00 [place] [facility] DTAP 2006-04-20 Completed [facility] 00:00:00 [facility] MMR 2006-04-20 Completed [facility] 00:00:00 [facility] Polio (IPV/OPV) 2006-04-20 Completed [facility] 00:00:00 [facility] Varicella 2006-04-20 Completed [facility] (varivax)([facility]icken 00:00:00 [place] [facility] DTAP 2006-04-20 Completed [facility] 00:00:00 [facility] MMR 2006-04-20 Completed [facility] 00:00:00 [facility] Polio (IPV/OPV) 2006-04-20 Completed [facility] 00:00:00 [facility] Varicella 2006-04-20 Completed [facility] (varivax)([facility]icken 00:00:00 [place] [facility] DTAP 2006-04-20 Completed [facility] 00:00:00 [facility] MMR 2006-04-20 Completed [facility] 00:00:00 [facility] Polio (IPV/OPV) 2006-04-20 Completed [facility] 00:00:00 [facility] Varicella 2006-04-20 Completed [facility] (varivax)([facility]icken 00:00:00 [place] [facility] DTAP 2006-04-20 Completed [facility] 00:00:00 [facility] MMR 2006-04-20 Completed [facility] 00:00:00 [facility] Polio (IPV/OPV) 2006-04-20 Completed [facility] 00:00:00 [facility] Varicella 2006-04-20 Completed [facility] (varivax)([facility]icken 00:00:00 [place] [facility] DTAP 2006-04-20 Completed [facility] 00:00:00 [facility] MMR 2006-04-20 Completed [facility] 00:00:00 [facility] Polio (IPV/OPV) 2006-04-20 Completed [facility] 00:00:00 [facility] Varicella 2006-04-20 Completed [facility] (varivax)([facility]icken 00:00:00 [place] [facility] DTAP 2006-04-20 Completed [facility] 00:00:00 [facility] MMR 2006-04-20 Completed [facility] 00:00:00 [facility] Polio (IPV/OPV) 2006-04-20 Completed [facility] 00:00:00 [facility] Varicella 2006-04-20 Completed [facility] (varivax)([facility]icken 00:00:00 [place] [facility] DTAP 2006-04-20 Completed [facility] 00:00:00 [facility] MMR 2006-04-20 Completed [facility] 00:00:00 [facility] Polio (IPV/OPV) 2006-04-20 Completed [facility] 00:00:00 [facility] Varicella 2006-04-20 Completed [facility] (varivax)([facility]icken 00:00:00 [place] [facility] DTAP 2006-04-20 Completed [facility] 00:00:00 [facility] MMR 2006-04-20 Completed [facility] 00:00:00 [facility] Polio (IPV/OPV) 2006-04-20 Completed [facility] 00:00:00 [facility] Polio (IPV/OPV) 2006-04-20 Completed [facility] 00:00:00 [facility] Varicella 2006-04-20 Completed [facility] (varivax)([facility]icken 00:00:00 [place] [facility] DTAP 2006-04-20 Completed [facility] 00:00:00 [facility] MMR 2006-04-20 Completed [facility] 00:00:00 [facility] Varicella 2006-04-20 Completed [facility] (varivax)([facility]icken 00:00:00 [place] [facility] DTAP 2006-04-20 Completed [facility] 00:00:00 [facility] Polio (IPV/OPV) 2006-04-20 Completed [facility] 00:00:00 [facility] MMR 2006-04-20 Completed [facility] 00:00:00 [facility] Varicella 2006-04-20 Completed [facility] (varivax)([facility]icken 00:00:00 [place] [facility] DTAP 2006-04-20 Completed [facility] 00:00:00 [facility] MMR 2006-04-20 Completed [facility] 00:00:00 [facility] Polio (IPV/OPV) 2006-04-20 Completed [facility] 00:00:00 [facility] Varicella 2006-04-20 Completed [facility] (varivax)(chicken 00:00:00 [place] [facility] DTAP 2006-04-20 Completed [facility] 00:00:00 [facility] MMR 2006-04-20 Completed [facility] 00:00:00 [facility] Polio (IPV/OPV) 2006-04-20 Completed [facility] 00:00:00 [facility] Varicella 2006-04-20 Completed [facility] (varivax)([facility]icken 00:00:00 [place] [facility] DTAP 2006-04-20 Completed [facility] 00:00:00 [facility] MMR 2006-04-20 Completed [facility] 00:00:00 [facility] Polio (IPV/OPV) 2006-04-20 Completed [facility] 00:00:00 [facility] Varicella 2006-04-20 Completed [facility] (varivax)(chicken 00:00:00 [place] [facility] DTAP 2006-04-20 Completed [facility] 00:00:00 [facility] MMR 2006-04-20 Completed [facility] 00:00:00 [facility] Polio (IPV/OPV) 2006-04-20 Completed [facility] 00:00:00 [facility] Varicella 2006-04-20 Completed [facility] (varivax)(chicken 00:00:00 [place] [facility] DTAP 2006-04-20 Completed [facility] 00:00:00 [facility] MMR 2006-04-20 Completed [facility] 00:00:00 [facility] Polio (IPV/OPV) 2006-04-20 Completed [facility] 00:00:00 [facility] Polio (IPV/OPV) 2006-04-20 Completed [facility] 00:00:00 [facility] Varicella 2006-04-20 Completed [facility] (varivax)([facility]icken 00:00:00 [place] [facility] DTAP 2006-04-20 Completed [facility] 00:00:00 [facility] MMR 2006-04-20 Completed [facility] 00:00:00 [facility] Varicella 2006-04-20 Completed [facility] (varivax)(chicken 00:00:00 [place] [facility] DTAP 2006-04-20 Completed [facility] 00:00:00 [facility] Polio (IPV/OPV) 2006-04-20 Completed [facility] 00:00:00 [facility] Varicella 2006-04-20 Completed [facility] (varivax)(chicken 00:00:00 [place] [facility] pox[facility] MMR 2006-04-20 Completed [facility] 00:00:00 [facility] DTAP 2006-04-20 Completed [facility] 00:00:00 [facility] MMR 2006-04-20 Completed [facility] 00:00:00 [facility] Polio (IPV/OPV) 2006-04-20 Completed [facility] 00:00:00 [facility] Varicella 2006-04-20 Completed [facility] (varivax)(chicken 00:00:00 [place] [facility] DTAP 2006-04-20 Completed [facility] 00:00:00 [facility] MMR 2006-04-20 Completed [facility] 00:00:00 [facility] Polio (IPV/OPV) 2006-04-20 Completed [facility] 00:00:00 [facility] Varicella 2006-04-20 Completed [facility] (varivax)(chicken 00:00:00 [place] [facility] DTAP 2006-04-20 Completed [facility] 00:00:00 [facility] MMR 2006-04-20 Completed [facility] 00:00:00 [facility] Polio (IPV/OPV) 2006-04-20 Completed [facility] 00:00:00 [facility] Varicella 2006-04-20 Completed [facility] (varivax)(chicken 00:00:00 [place] [facility]ox[facility] DTAP 2006-04-20 Completed [facility] 00:00:00 [facility] MMR 2006-04-20 Completed [facility] 00:00:00 [facility] Polio (IPV/OPV) 2006-04-20 Completed [facility] 00:00:00 [facility] Varicella 2006-04-20 Completed [facility] (varivax)(chicken 00:00:00 [place] [facility] DTAP 2006-04-20 Completed [facility] 00:00:00 [facility] MMR 2006-04-20 Completed [facility] 00:00:00 [facility] Polio (IPV/OPV) 2006-04-20 Completed [facility] 00:00:00 [facility] Varicella 2006-04-20 Completed [facility] (varivax)(chicken 00:00:00 [place] [facility] DTAP 2006-04-20 Completed [facility] 00:00:00 [facility] MMR 2006-04-20 Completed [facility] 00:00:00 [facility] Polio (IPV/OPV) 2006-04-20 Completed [facility] 00:00:00 [facility] Varicella 2006-04-20 Completed [facility] (varivax)(chicken 00:00:00 [place] [facility] DTAP 2006-04-20 Completed [facility] 00:00:00 [facility] MMR 2006-04-20 Completed [facility] 00:00:00 [facility] Polio (IPV/OPV) 2006-04-20 Completed [facility] 00:00:00 [facility] Polio (IPV/OPV) 2006-04-20 Completed [facility] 00:00:00 [facility] Varicella 2006-04-20 Completed [facility] (varivax)([facility]icken 00:00:00 [place] [facility] DTAP 2006-04-20 Completed [facility] 00:00:00 [facility] MMR 2006-04-20 Completed [facility] 00:00:00 [facility] Varicella 2006-04-20 Completed [facility] (varivax)([facility]icken 00:00:00 [place] [facility] DTAP 2006-04-20 Completed [facility] 00:00:00 [facility] Polio (IPV/OPV) 2006-04-20 Completed [facility] 00:00:00 [facility] MMR 2006-04-20 Completed [facility] 00:00:00 [facility] Varicella 2006-04-20 Completed [facility] (varivax)([facility]icken 00:00:00 [place] [facility] DTAP 2006-04-20 Completed [facility] 00:00:00 [facility] MMR 2006-04-20 Completed [facility] 00:00:00 [facility] Polio (IPV/OPV) 2006-04-20 Completed [facility] 00:00:00 [facility] Varicella 2006-04-20 Completed [facility] (varivax)([facility]icken 00:00:00 [place] [facility] DTAP 2006-04-20 Completed [facility] 00:00:00 [facility] MMR 2006-04-20 Completed [facility] 00:00:00 [facility] Polio (IPV/OPV) 2006-04-20 Completed [facility] 00:00:00 [facility] Varicella 2006-04-20 Completed [facility] (varivax)([facility]icken 00:00:00 [place] [facility] DTAP 2006-04-20 Completed [facility] 00:00:00 [facility] MMR 2006-04-20 Completed [facility] 00:00:00 [facility] Polio (IPV/OPV) 2006-04-20 Completed [facility] 00:00:00 [facility] Varicella 2006-04-20 Completed [facility] (varivax)([facility] 00:00:00 [place] [facility] DTAP 2006-04-20 Completed [facility] 00:00:00 [facility] MMR 2006-04-20 Completed [facility] 00:00:00 [facility] Polio (IPV/OPV) 2006-04-20 Completed [facility] 00:00:00 [facility] Varicella 2006-04-20 Completed [facility] (varivax)([facility]icken 00:00:00 [place] [facility] DTAP 2006-04-20 Completed [facility] 00:00:00 [facility] MMR 2006-04-20 Completed [facility] 00:00:00 [facility] Polio (IPV/OPV) 2006-04-20 Completed [facility] 00:00:00 [facility] Varicella 2006-04-20 Completed [facility] (varivax)([facility]icken 00:00:00 [place] [facility] DTAP 2006-04-20 Completed [facility] 00:00:00 [facility] MMR 2006-04-20 Completed [facility] 00:00:00 [facility] Polio (IPV/OPV) 2006-04-20 Completed [facility] 00:00:00 [facility] Varicella 2006-04-20 Completed [facility] (varivax)(chicken 00:00:00 [place] [facility] DTAP 2006-04-20 Completed [facility] 00:00:00 [facility] MMR 2006-04-20 Completed [facility] 00:00:00 [facility] Polio (IPV/OPV) 2006-04-20 Completed [facility] 00:00:00 [facility] Varicella 2006-04-20 Completed [facility] (varivax)(chicken 00:00:00 [place] [facility] DTAP 2006-04-20 Completed [facility] 00:00:00 [facility] MMR 2006-04-20 Completed [facility] 00:00:00 [facility] Polio (IPV/OPV) 2006-04-20 Completed [facility] 00:00:00 [facility] Varicella 2006-04-20 Completed [facility] (varivax)(chicken 00:00:00 [place] [facility] DTAP 2006-04-20 Completed [facility] 00:00:00 [facility] MMR 2006-04-20 Completed [facility] 00:00:00 [facility] Polio (IPV/OPV) 2006-04-20 Completed [facility] 00:00:00 [facility] Varicella 2006-04-20 Completed [facility] (varivax)([facility]icken 00:00:00 [place] [facility] DTAP 2006-04-20 Completed [facility] 00:00:00 [facility] MMR 2006-04-20 Completed [facility] 00:00:00 [facility] Polio (IPV/OPV) 2006-04-20 Completed [facility] 00:00:00 [facility] Varicella 2006-04-20 Completed [facility] (varivax)([facility]icken 00:00:00 [place] [facility] DTAP 2006-04-20 Completed [facility] 00:00:00 [facility] MMR 2006-04-20 Completed [facility] 00:00:00 [facility] Polio (IPV/OPV) 2006-04-20 Completed [facility] 00:00:00 [facility] Polio (IPV/OPV) 2006-04-20 Completed [facility] 00:00:00 [facility] Varicella 2006-04-20 Completed [facility] (varivax)([facility]icken 00:00:00 [place] [facility] DTAP 2006-04-20 Completed [facility] 00:00:00 [facility] MMR 2006-04-20 Completed [facility] 00:00:00 [facility] Polio (IPV/OPV) 2006-04-20 Completed [facility] 00:00:00 [facility] Varicella 2006-04-20 Completed [facility] (varivax)([facility]icken 00:00:00 [place] [facility] DTAP 2006-04-20 Completed [facility] 00:00:00 [facility] MMR 2006-04-20 Completed [facility] 00:00:00 [facility] Varicella 2006-04-20 Completed [facility] (varivax)([facility]icken 00:00:00 [place] [facility] DTAP 2006-04-20 Completed [facility] 00:00:00 [facility] MMR 2006-04-20 Completed [facility] 00:00:00 [facility] Polio (IPV/OPV) 2006-04-20 Completed [facility] 00:00:00 [facility] Varicella 2006-04-20 Completed [facility] of (varivax)(chicken 00:00:00 [place] [facility] pox[facility] DTAP 2006-04-20 Completed [facility] 00:00:00 [facility] MMR 2006-04-20 Completed [facility] of 00:00:00 [facility] Polio (IPV/OPV) 2006-04-20 Completed [facility] 00:00:00 [facility] Varicella 2006-04-20 Completed [facility] (varivax)(chicken 00:00:00 [place] [facility] pox[facility] DTAP 2006-04-20 Completed [facility] 00:00:00 [facility] MMR 2006-04-20 Completed [facility] of 00:00:00 [facility] Polio (IPV/OPV) 2006-04-20 Completed [facility] 00:00:00 [facility] Varicella 2006-04-20 Completed [facility] (varivax)(chicken 00:00:00 [place] [facility] pox[facility] DTAP 2006-04-20 Completed [facility] 00:00:00 [facility] MMR 2006-04-20 Completed [facility] 00:00:00 [facility] Polio (IPV/OPV) 2006-04-20 Completed [facility] 00:00:00 [facility] Varicella 2006-04-20 Completed [facility] (varivax)(chicken 00:00:00 [place] [facility] pox[facility] DTAP 2006-04-20 Completed [facility] 00:00:00 [facility] MMR 2006-04-20 Completed [facility] 00:00:00 [facility] Polio (IPV/OPV) 2006-04-20 Completed [facility] 00:00:00 [facility] Varicella 2006-04-20 Completed [facility] (varivax)(chicken 00:00:00 [place] [facility] pox[facility] DTAP 2006-04-20 Completed [facility] 00:00:00 [facility] MMR 2006-04-20 Completed [facility] 00:00:00 [facility] Polio (IPV/OPV) 2006-04-20 Completed [facility] 00:00:00 [facility] Varicella 2006-04-20 Completed [facility] (varivax)(chicken 00:00:00 [place] [facility] pox) [facility] DTAP 2006-04-20 Completed [facility] 00:00:00 [facility] MMR 2006-04-20 Completed [facility] 00:00:00 [facility] Polio (IPV/OPV) 2006-04-20 Completed [facility] 00:00:00 [facility] Varicella 2006-04-20 Completed [facility] (varivax)(chicken 00:00:00 [place] [facility] pox) [facility] DTAP 2006-04-20 Completed [facility] 00:00:00 [facility] MMR 2006-04-20 Completed [facility] 00:00:00 [facility] Polio (IPV/OPV) 2006-04-20 Completed [facility] 00:00:00 [facility] Varicella 2006-04-20 Completed [facility] (varivax)(chicken 00:00:00 [place] [facility] pox[facility] DTAP 2006-04-20 Completed [facility] 00:00:00 [facility] MMR 2006-04-20 Completed [facility] of 00:00:00 [facility] HEPATITIS A 2005-01-09 Completed [facility] of 00:00:00 [facility] HEPATITIS A 2005-01-09 Completed [facility] of 00:00:00 [facility] HEPATITIS A 2005-01-09 Completed [facility] of 00:00:00 [facility] HEPATITIS A 2005-01-09 Completed [facility] of 00:00:00 [facility] HEPATITIS A 2005-01-09 Completed [facility] 00:00:00 [facility] HEPATITIS A 2005-01-09 Completed [facility] 00:00:00 [facility] HEPATITIS A 2005-01-09 Completed [facility] 00:00:00 [facility] HEPATITIS A 2005-01-09 Completed [facility] 00:00:00 [facility] HEPATITIS A 2005-01-09 Completed [facility] 00:00:00 [facility] HEPATITIS A 2005-01-09 Completed [facility] 00:00:00 [facility] HEPATITIS A 2005-01-09 Completed [facility] 00:00:00 [facility] HEPATITIS A 2005-01-09 Completed [facility] 00:00:00 [facility] HEPATITIS A 2005-01-09 Completed [facility] 00:00:00 [facility] HEPATITIS A 2005-01-09 Completed [facility] 00:00:00 [facility] HEPATITIS A 2005-01-09 Completed [facility] 00:00:00 [facility] HEPATITIS A 2005-01-09 Completed [facility] 00:00:00 [facility] HEPATITIS A 2005-01-09 Completed [facility] 00:00:00 [facility] HEPATITIS A 2005-01-09 Completed [facility] 00:00:00 [facility] HEPATITIS A 2005-01-09 Completed [facility] 00:00:00 [facility] HEPATITIS A 2005-01-09 Completed [facility] 00:00:00 [facility] HEPATITIS A 2005-01-09 Completed [facility] 00:00:00 [facility] HEPATITIS A 2005-01-09 Completed [facility] 00:00:00 [facility] HEPATITIS A 2005-01-09 Completed [facility] 00:00:00 [facility] HEPATITIS A 2005-01-09 Completed [facility] 00:00:00 [facility] HEPATITIS A 2005-01-09 Completed [facility] 00:00:00 [facility] HEPATITIS A 2005-01-09 Completed [facility] 00:00:00 [facility] HEPATITIS A 2005-01-09 Completed [facility] 00:00:00 [facility] HEPATITIS A 2005-01-09 Completed [facility] 00:00:00 [facility] HEPATITIS A 2005-01-09 Completed [facility] 00:00:00 [facility] HEPATITIS A 2005-01-09 Completed [facility] 00:00:00 [facility] HEPATITIS A 2005-01-09 Completed [facility] 00:00:00 [facility] HEPATITIS A 2005-01-09 Completed [facility] 00:00:00 [facility] HEPATITIS A 2005-01-09 Completed [facility] 00:00:00 [facility] HEPATITIS A 2005-01-09 Completed [facility] 00:00:00 [facility] HEPATITIS A 2005-01-09 Completed [facility] 00:00:00 [facility] HEPATITIS A 2005-01-09 Completed [facility] 00:00:00 [facility] HEPATITIS A 2005-01-09 Completed [facility] 00:00:00 [facility] HEPATITIS A 2005-01-09 Completed [facility] 00:00:00 [facility] HEPATITIS A 2005-01-09 Completed [facility] 00:00:00 [facility] HEPATITIS A 2005-01-09 Completed [facility] 00:00:00 [facility] HEPATITIS A 2005-01-09 Completed [facility] 00:00:00 [facility] HEPATITIS A 2005-01-09 Completed [facility] 00:00:00 [facility] HEPATITIS A 2005-01-09 Completed [facility] 00:00:00 [facility] HEPATITIS A 2005-01-09 Completed [facility] of 00:00:00 [facility] HEPATITIS A 2005-01-09 Completed [facility] of 00:00:00 [facility] HEPATITIS A 2005-01-09 Completed [facility] 00:00:00 [facility] HEPATITIS A 2005-01-09 Completed [facility] of 00:00:00 [facility] HEPATITIS A 2005-01-09 Completed [facility] of 00:00:00 [facility] HEPATITIS A 2005-01-09 Completed [facility] 00:00:00 [facility] HEPATITIS A 2005-01-09 Completed [facility] 00:00:00 [facility] HEPATITIS A 2005-01-09 Completed [facility] of 00:00:00 [facility] HEPATITIS A 2005-01-09 Completed [facility] of 00:00:00 [facility] HEPATITIS A 2005-01-09 Completed [facility] of 00:00:00 [facility] HEPATITIS A 2005-01-09 Completed [facility] 00:00:00 [facility] HEPATITIS A 2005-01-09 Completed [facility] 00:00:00 [facility] HEPATITIS A 2005-01-09 Completed [facility] 00:00:00 [facility] HEPATITIS A 2005-01-09 Completed [facility] 00:00:00 [facility] HEPATITIS A 2005-01-09 Completed [facility] 00:00:00 [facility] HEPATITIS A 2005-01-09 Completed [facility] 00:00:00 [facility] HEPATITIS A 2005-01-09 Completed [facility] 00:00:00 [facility] HEPATITIS A 2005-01-09 Completed [facility] 00:00:00 [facility] HEPATITIS A 2005-01-09 Completed [facility] 00:00:00 [facility] HEPATITIS A 2005-01-09 Completed [facility] 00:00:00 [facility] HEPATITIS A 2005-01-09 Completed [facility] 00:00:00 [facility] HEPATITIS A 2005-01-09 Completed [facility] of 00:00:00 [facility] HEPATITIS A 2005-01-09 Completed [facility] of 00:00:00 [facility] HEPATITIS A 2005-01-09 Completed [facility] of 00:00:00 [facility] HEPATITIS A 2005-01-09 Completed [facility] of 00:00:00 [facility] HEPATITIS A 2005-01-09 Completed [facility] of 00:00:00 [facility] HEPATITIS A 2005-01-09 Completed [facility] of 00:00:00 [facility] HEPATITIS A 2005-01-09 Completed [facility] of 00:00:00 [facility] HEPATITIS A 2005-01-09 Completed [facility] of 00:00:00 [facility] HEPATITIS A 2005-01-09 Completed [facility] of 00:00:00 [facility] HEPATITIS A 2005-01-09 Completed [facility] of 00:00:00 [facility] HEPATITIS A 2005-01-09 Completed [facility] of 00:00:00 [facility] HEPATITIS A 2005-01-09 Completed [facility] of 00:00:00 [facility] HEPATITIS A 2005-01-09 Completed [facility] of 00:00:00 [facility] HEPATITIS A 2005-01-09 Completed [facility] of 00:00:00 [facility] HEPATITIS A 2005-01-09 Completed [facility] of 00:00:00 [facility] HEPATITIS A 2005-01-09 Completed [facility] 00:00:00 [facility] HEPATITIS A 2005-01-09 Completed [facility] of 00:00:00 [facility] HEPATITIS A 2005-01-09 Completed [facility] of 00:00:00 [facility] HEPATITIS A 2005-01-09 Completed [facility] of 00:00:00 [facility] HEPATITIS A 2004-05-28 Completed [facility] of 00:00:00 [facility] Pneumococcal 7 2004-05-28 Completed [facility] of Conjugate, PCV7 00:00:00 [place] [facility] (Prevnar7) [facility] HEPATITIS A 2004-05-28 Completed [facility] 00:00:00 [facility] Pneumococcal 7 2004-05-28 Completed [facility] of Conjugate, PCV7 00:00:00 [place] [facility] (Prevnar7) [facility] HEPATITIS A 2004-05-28 Completed [facility] 00:00:00 [facility] Pneumococcal 7 2004-05-28 Completed [facility] of Conjugate, PCV7 00:00:00 [place] [facility] (Prevnar7) [facility] HEPATITIS A 2004-05-28 Completed [facility] 00:00:00 [facility] Pneumococcal 7 2004-05-28 Completed [facility] Conjugate, PCV7 00:00:00 [place] [facility] (Prevnar7) [facility] Pneumococcal 7 2004-05-28 Completed [facility] Conjugate, PCV7 00:00:00 [place] [facility] (Prevnar7) [facility] HEPATITIS A 2004-05-28 Completed [facility] 00:00:00 [facility] Pneumococcal 7 2004-05-28 Completed [facility] Conjugate, PCV7 00:00:00 [place] [facility] (Prevnar7) [facility] HEPATITIS A 2004-05-28 Completed [facility] 00:00:00 [facility] Pneumococcal 7 2004-05-28 Completed [facility] Conjugate, PCV7 00:00:00 [place] [facility] (Prevnar7) [facility] HEPATITIS A 2004-05-28 Completed [facility] 00:00:00 [facility] Pneumococcal 7 2004-05-28 Completed [facility] Conjugate, PCV7 00:00:00 [place] [facility] (Prevnar7) [facility] HEPATITIS A 2004-05-28 Completed [facility] 00:00:00 [facility] Pneumococcal 7 2004-05-28 Completed [facility] Conjugate, PCV7 00:00:00 [place] [facility] (Prevnar7) [facility] HEPATITIS A 2004-05-28 Completed [facility] 00:00:00 [facility] Pneumococcal 7 2004-05-28 Completed [facility] Conjugate, PCV7 00:00:00 [place] [facility] (Prevnar7) [facility] HEPATITIS A 2004-05-28 Completed [facility] 00:00:00 [facility] HEPATITIS A 2004-05-28 Completed [facility] 00:00:00 [facility] Pneumococcal 7 2004-05-28 Completed [facility] Conjugate, PCV7 00:00:00 [place] [facility] (Prevnar7) [facility] HEPATITIS A 2004-05-28 Completed [facility] 00:00:00 [facility] Pneumococcal 7 2004-05-28 Completed [facility] Conjugate, PCV7 00:00:00 [place] [facility] (Prevnar7) [facility] HEPATITIS A 2004-05-28 Completed [facility] 00:00:00 [facility] Pneumococcal 7 2004-05-28 Completed [facility] Conjugate, PCV7 00:00:00 [place] [facility] (Prevnar7) [facility] HEPATITIS A 2004-05-28 Completed [facility] 00:00:00 [facility] Pneumococcal 7 2004-05-28 Completed [facility] Conjugate, PCV7 00:00:00 [place] [facility] (Prevnar7) [facility] Pneumococcal 7 2004-05-28 Completed [facility] Conjugate, PCV7 00:00:00 [place] [facility] (Prevnar7) [facility] HEPATITIS A 2004-05-28 Completed [facility] 00:00:00 [facility] Pneumococcal 7 2004-05-28 Completed [facility] Conjugate, PCV7 00:00:00 [place] [facility] (Prevnar7) [facility] HEPATITIS A 2004-05-28 Completed [facility] 00:00:00 [facility] Pneumococcal 7 2004-05-28 Completed [facility] Conjugate, PCV7 00:00:00 [place] [facility] (Prevnar7) [facility] HEPATITIS A 2004-05-28 Completed [facility] 00:00:00 [facility] Pneumococcal 7 2004-05-28 Completed [facility] Conjugate, PCV7 00:00:00 [place] [facility] (Prevnar7) [facility] HEPATITIS A 2004-05-28 Completed [facility] 00:00:00 [facility] Pneumococcal 7 2004-05-28 Completed [facility] Conjugate, PCV7 00:00:00 [place] [facility] (Prevnar7) [facility] HEPATITIS A 2004-05-28 Completed [facility] 00:00:00 [facility] Pneumococcal 7 2004-05-28 Completed [facility] Conjugate, PCV7 00:00:00 [place] [facility] (Prevnar7) [facility] HEPATITIS A 2004-05-28 Completed [facility] 00:00:00 [facility] Pneumococcal 7 2004-05-28 Completed [facility] Conjugate, PCV7 00:00:00 [place] [facility] (Prevnar7) [facility] HEPATITIS A 2004-05-28 Completed [facility] 00:00:00 [facility] Pneumococcal 7 2004-05-28 Completed [facility] Conjugate, PCV7 00:00:00 [place] [facility] (Prevnar7) [facility] HEPATITIS A 2004-05-28 Completed [facility] 00:00:00 [facility] HEPATITIS A 2004-05-28 Completed [facility] 00:00:00 [facility] Pneumococcal 7 2004-05-28 Completed [facility] Conjugate, PCV7 00:00:00 [place] [facility] (Prevnar7) [facility] HEPATITIS A 2004-05-28 Completed [facility] 00:00:00 [facility] Pneumococcal 7 2004-05-28 Completed [facility] Conjugate, PCV7 00:00:00 [place] [facility] (Prevnar7) [facility] HEPATITIS A 2004-05-28 Completed [facility] 00:00:00 [facility] Pneumococcal 7 2004-05-28 Completed [facility] Conjugate, PCV7 00:00:00 [place] [facility] (Prevnar7) [facility] HEPATITIS A 2004-05-28 Completed [facility] 00:00:00 [facility] Pneumococcal 7 2004-05-28 Completed [facility] Conjugate, PCV7 00:00:00 [place] [facility] (Prevnar7) [facility] Pneumococcal 7 2004-05-28 Completed [facility] Conjugate, PCV7 00:00:00 [place] [facility] (Prevnar7) [facility] HEPATITIS A 2004-05-28 Completed [facility] 00:00:00 [facility] Pneumococcal 7 2004-05-28 Completed [facility] Conjugate, PCV7 00:00:00 [place] [facility] (Prevnar7) [facility] HEPATITIS A 2004-05-28 Completed [facility] 00:00:00 [facility] Pneumococcal 7 2004-05-28 Completed [facility] Conjugate, PCV7 00:00:00 [place] [facility] (Prevnar7) [facility] HEPATITIS A 2004-05-28 Completed [facility] 00:00:00 [facility] Pneumococcal 7 2004-05-28 Completed [facility] Conjugate, PCV7 00:00:00 [place] [facility] (Prevnar7) [facility] HEPATITIS A 2004-05-28 Completed [facility] 00:00:00 [facility] Pneumococcal 7 2004-05-28 Completed [facility] Conjugate, PCV7 00:00:00 [place] [facility] (Prevnar7) [facility] HEPATITIS A 2004-05-28 Completed [facility] 00:00:00 [facility] HEPATITIS A 2004-05-28 Completed [facility] 00:00:00 [facility] Pneumococcal 7 2004-05-28 Completed [facility] Conjugate, PCV7 00:00:00 [place] [facility] (Prevnar7) [facility] HEPATITIS A 2004-05-28 Completed [facility] 00:00:00 [facility] Pneumococcal 7 2004-05-28 Completed [facility] Conjugate, PCV7 00:00:00 [place] [facility] (Prevnar7) [facility] HEPATITIS A 2004-05-28 Completed [facility] 00:00:00 [facility] Pneumococcal 7 2004-05-28 Completed [facility] Conjugate, PCV7 00:00:00 [place] [facility] (Prevnar7) [facility] HEPATITIS A 2004-05-28 Completed [facility] 00:00:00 [facility] Pneumococcal 7 2004-05-28 Completed [facility] Conjugate, PCV7 00:00:00 [place] [facility] (Prevnar7) [facility] Pneumococcal 7 2004-05-28 Completed [facility] Conjugate, PCV7 00:00:00 [place] [facility] (Prevnar7) [facility] HEPATITIS A 2004-05-28 Completed [facility] 00:00:00 [facility] Pneumococcal 7 2004-05-28 Completed [facility] Conjugate, PCV7 00:00:00 [place] [facility] (Prevnar7) [facility] HEPATITIS A 2004-05-28 Completed [facility] 00:00:00 [facility] Pneumococcal 7 2004-05-28 Completed [facility] Conjugate, PCV7 00:00:00 [place] [facility] (Prevnar7) [facility] HEPATITIS A 2004-05-28 Completed [facility] 00:00:00 [facility] Pneumococcal 7 2004-05-28 Completed [facility] Conjugate, PCV7 00:00:00 [place] [facility] (Prevnar7) [facility] HEPATITIS A 2004-05-28 Completed [facility] 00:00:00 [facility] Pneumococcal 7 2004-05-28 Completed [facility] Conjugate, PCV7 00:00:00 [place] [facility] (Prevnar7) [facility] HEPATITIS A 2004-05-28 Completed [facility] 00:00:00 [facility] Pneumococcal 7 2004-05-28 Completed [facility] Conjugate, PCV7 00:00:00 [place] [facility] (Prevnar7) [facility] HEPATITIS A 2004-05-28 Completed [facility] 00:00:00 [facility] HEPATITIS A 2004-05-28 Completed [facility] 00:00:00 [facility] Pneumococcal 7 2004-05-28 Completed [facility] Conjugate, PCV7 00:00:00 [place] [facility] (Prevnar7) [facility] HEPATITIS A 2004-05-28 Completed [facility] 00:00:00 [facility] Pneumococcal 7 2004-05-28 Completed [facility] Conjugate, PCV7 00:00:00 [place] [facility] (Prevnar7) [facility] HEPATITIS A 2004-05-28 Completed [facility] 00:00:00 [facility] Pneumococcal 7 2004-05-28 Completed [facility] Conjugate, PCV7 00:00:00 [place] [facility] (Prevnar7) [facility] HEPATITIS A 2004-05-28 Completed [facility] 00:00:00 [facility] Pneumococcal 7 2004-05-28 Completed [facility] Conjugate, PCV7 00:00:00 [place] [facility] (Prevnar7) [facility] Pneumococcal 7 2004-05-28 Completed [facility] Conjugate, PCV7 00:00:00 [place] [facility] (Prevnar7) [facility] HEPATITIS A 2004-05-28 Completed [facility] 00:00:00 [facility] Pneumococcal 7 2004-05-28 Completed [facility] Conjugate, PCV7 00:00:00 [place] [facility] (Prevnar7) [facility] HEPATITIS A 2004-05-28 Completed [facility] 00:00:00 [facility] Pneumococcal 7 2004-05-28 Completed [facility] Conjugate, PCV7 00:00:00 [place] [facility] (Prevnar7) [facility] HEPATITIS A 2004-05-28 Completed [facility] 00:00:00 [facility] HEPATITIS A 2004-05-28 Completed [facility] 00:00:00 [facility] Pneumococcal 7 2004-05-28 Completed [facility] Conjugate, PCV7 00:00:00 [place] [facility] (Prevnar7) [facility] HEPATITIS A 2004-05-28 Completed [facility] 00:00:00 [facility] Pneumococcal 7 2004-05-28 Completed [facility] Conjugate, PCV7 00:00:00 [place] [facility] (Prevnar7) [facility] HEPATITIS A 2004-05-28 Completed [facility] 00:00:00 [facility] Pneumococcal 7 2004-05-28 Completed [facility] Conjugate, PCV7 00:00:00 [place] [facility] (Prevnar7) [facility] HEPATITIS A 2004-05-28 Completed [facility] 00:00:00 [facility] Pneumococcal 7 2004-05-28 Completed [facility] Conjugate, PCV7 00:00:00 [place] [facility] (Prevnar7) [facility] Pneumococcal 7 2004-05-28 Completed [facility] Conjugate, PCV7 00:00:00 [place] [facility] (Prevnar7) [facility] HEPATITIS A 2004-05-28 Completed [facility] 00:00:00 [facility] Pneumococcal 7 2004-05-28 Completed [facility] Conjugate, PCV7 00:00:00 [place] [facility] (Prevnar7) [facility] HEPATITIS A 2004-05-28 Completed [facility] 00:00:00 [facility] Pneumococcal 7 2004-05-28 Completed [facility] Conjugate, PCV7 00:00:00 [place] [facility] (Prevnar7) [facility] HEPATITIS A 2004-05-28 Completed [facility] 00:00:00 [facility] Pneumococcal 7 2004-05-28 Completed [facility] Conjugate, PCV7 00:00:00 [place] [facility] (Prevnar7) [facility] HEPATITIS A 2004-05-28 Completed [facility] 00:00:00 [facility] Pneumococcal 7 2004-05-28 Completed [facility] Conjugate, PCV7 00:00:00 [place] [facility] (Prevnar7) [facility] HEPATITIS A 2004-05-28 Completed [facility] 00:00:00 [facility] HEPATITIS A 2004-05-28 Completed [facility] 00:00:00 [facility] Pneumococcal 7 2004-05-28 Completed [facility] Conjugate, PCV7 00:00:00 [place] [facility] (Prevnar7) [facility] HEPATITIS A 2004-05-28 Completed [facility] 00:00:00 [facility] Pneumococcal 7 2004-05-28 Completed [facility] Conjugate, PCV7 00:00:00 [place] [facility] (Prevnar7) [place] HEPATITIS A 2004-05-28 Completed [facility] 00:00:00 [facility] Pneumococcal 7 2004-05-28 Completed [facility] Conjugate, PCV7 00:00:00 [place] [facility] (Prevnar7) [place] HEPATITIS A 2004-05-28 Completed [facility] 00:00:00 [facility] Pneumococcal 7 2004-05-28 Completed [facility] Conjugate, PCV7 00:00:00 [place] [facility] (Prevnar7) [facility] Pneumococcal 7 2004-05-28 Completed [facility] Conjugate, PCV7 00:00:00 [place] [facility] (Prevnar7) [place] HEPATITIS A 2004-05-28 Completed [facility] 00:00:00 [facility] Pneumococcal 7 2004-05-28 Completed [facility] Conjugate, PCV7 00:00:00 [place] [facility] (Prevnar7) [place] HEPATITIS A 2004-05-28 Completed [facility] 00:00:00 [facility] Pneumococcal 7 2004-05-28 Completed [facility] Conjugate, PCV7 00:00:00 [place] [facility] (Prevnar7) [facility] HEPATITIS A 2004-05-28 Completed [facility] 00:00:00 [facility] Pneumococcal 7 2004-05-28 Completed [facility] Conjugate, PCV7 00:00:00 [place] [facility] (Prevnar7) [place] HEPATITIS A 2004-05-28 Completed [facility] 00:00:00 [facility] Pneumococcal 7 2004-05-28 Completed [facility] Conjugate, PCV7 00:00:00 [place] [facility] (Prevnar7) [place] HEPATITIS A 2004-05-28 Completed [facility] 00:00:00 [facility] Pneumococcal 7 2004-05-28 Completed [facility] Conjugate, PCV7 00:00:00 [place] [facility] (Prevnar7) [facility] HEPATITIS A 2004-05-28 Completed [facility] 00:00:00 [facility] Pneumococcal 7 2004-05-28 Completed [facility] Conjugate, PCV7 00:00:00 [place] [facility] (Prevnar7) [facility] HEPATITIS A 2004-05-28 Completed [facility] 00:00:00 [facility] Pneumococcal 7 2004-05-28 Completed [facility] Conjugate, PCV7 00:00:00 [place] [facility] (Prevnar7) [facility] HEPATITIS A 2004-05-28 Completed [facility] 00:00:00 [facility] Pneumococcal 7 2004-05-28 Completed [facility] Conjugate, PCV7 00:00:00 [place] [facility] (Prevnar7) [facility] HEPATITIS A 2004-05-28 Completed [facility] 00:00:00 [facility] HEPATITIS A 2004-05-28 Completed [facility] 00:00:00 [facility] Pneumococcal 7 2004-05-28 Completed [facility] Conjugate, PCV7 00:00:00 [place] [facility] (Prevnar7) [place] HEPATITIS A 2004-05-28 Completed [facility] 00:00:00 [facility] Pneumococcal 7 2004-05-28 Completed [facility] Conjugate, PCV7 00:00:00 [place] [facility] (Prevnar7) [place] HEPATITIS A 2004-05-28 Completed [facility] of 00:00:00 [facility] Pneumococcal 7 2004-05-28 Completed University of Conjugate, PCV7 00:00:00 [place] [facility] (Pre[facility] HEPATITIS A 2004-05-28 Completed University of 00:00:00 [facility] Pneumococcal 7 2004-05-28 Completed [facility] of Conjugate, PCV7 00:00:00 [facility] (Prevnar7) [facility] HEPATITIS A 2004-05-28 Completed [facility] of 00:00:00 [facility] Pneumococcal 7 2004-05-28 Completed [facility] of Conjugate, PCV7 00:00:00 [facility] (Pre[facility]ar[facility] Pneumococcal 7 2004-05-28 Completed [facility] Conjugate, PCV7 00:00:00 [facility] (Prevnar7) [facility] HEPATITIS A 2004-05-28 Completed [facility] of 00:00:00 [facility] Pneumococcal 7 2004-05-28 Completed [facility] of Conjugate, PCV7 00:00:00 [facility] (Prevnar7) [facility] HEPATITIS A 2004-05-28 Completed [facility] of 00:00:00 [facility] Pneumococcal 7 2004-05-28 Completed [facility] of Conjugate, PCV7 00:00:00 [facility] (Prevnar7) [facility] HEPATITIS A 2004-05-28 Completed [facility] of 00:00:00 [facility] Pneumococcal 7 2004-05-28 Completed [facility] of Conjugate, PCV7 00:00:00 [facility] (Pre[facility]ar[facility] HEPATITIS A 2004-05-28 Completed [facility] of 00:00:00 [facility] Pneumococcal 7 2004-05-28 Completed [facility] of Conjugate, PCV7 00:00:00 [facility] (Prevnar7[facility] HEPATITIS A 2004-05-28 Completed [facility] of 00:00:00 [facility] Pneumococcal 7 2004-05-28 Completed [facility] of Conjugate, PCV7 00:00:00 [facility] (Prevnar7[facility] HEPATITIS A 2004-05-28 Completed [facility] 00:00:00 [facility] Pneumococcal 7 2004-05-28 Completed [facility] of Conjugate, PCV7 00:00:00 [facility] (Pre[facility]ar[facility] HEPATITIS A 2004-05-28 Completed [facility] of 00:00:00 [facility] HEPATITIS A 2004-05-28 Completed [facility] of 00:00:00 [facility] Pneumococcal 7 2004-05-28 Completed [facility] of Conjugate, PCV7 00:00:00 [facility] (Pre[facility]ar7[facility] HIB 4 Dose Schedule 2003-08-04 Completed Unive rsity of 00:00:00 [facility] DTAP 2003-08-04 Completed University of 00:00:00 [facility] HIB 4 Dose Schedule 2003-08-04 Completed Unive rsity of 00:00:00 [facility] DTAP 2003-08-04 Completed [facility] of 00:00:00 [facility] HIB 4 Dose Schedule 2003-08-04 Completed Unive rsity of 00:00:00 [facility] DTAP 2003-08-04 Completed [facility] of 00:00:00 [facility] HIB 4 Dose Schedule 2003-08-04 Completed Unive rsity of 00:00:00 [facility] DTAP 2003-08-04 Completed [facility] of 00:00:00 [facility] HIB 4 Dose Schedule 2003-08-04 Completed Unive rsity of 00:00:00 [facility] DTAP 2003-08-04 Completed [facility] of 00:00:00 [facility] HIB 4 Dose Schedule 2003-08-04 Completed Unive rsity of 00:00:00 [facility] DTAP 2003-08-04 Completed [facility] of 00:00:00 [facility] HIB 4 Dose Schedule 2003-08-04 Completed Unive rsity of 00:00:00 [facility] DTAP 2003-08-04 Completed [facility] of 00:00:00 [facility] HIB 4 Dose Schedule 2003-08-04 Completed Unive rsity of 00:00:00 [facility] DTAP 2003-08-04 Completed [facility] of 00:00:00 [facility] DTAP 2003-08-04 Completed [facility] of 00:00:00 [facility] HIB 4 Dose Schedule 2003-08-04 Completed Unive rsity of 00:00:00 [facility] HIB 4 Dose Schedule 2003-08-04 Completed Unive rsity of 00:00:00 [facility] DTAP 2003-08-04 Completed [facility] 00:00:00 [facility] HIB 4 Dose Schedule 2003-08-04 Completed Unive rsity of 00:00:00 [facility] DTAP 2003-08-04 Completed [facility] of 00:00:00 [facility] HIB 4 Dose Schedule 2003-08-04 Completed Unive rsity of 00:00:00 [facility] DTAP 2003-08-04 Completed [facility] of 00:00:00 [facility] HIB 4 Dose Schedule 2003-08-04 Completed Unive rsity of 00:00:00 [facility] DTAP 2003-08-04 Completed [facility] of 00:00:00 [facility] HIB 4 Dose Schedule 2003-08-04 Completed Unive [...] Branch DTAP 2003-08-04 Completed [facility] of 00:00:00 [facility] HIB 4 Dose Schedule 2003-08-04 Completed Unive rsity of 00:00:00 [facility] DTAP 2003-08-04 Completed [facility] of 00:00:00 [facility] HIB 4 Dose Schedule 2003-08-04 Completed Unive rsity of 00:00:00 [facility] DTAP 2003-08-04 Completed [facility] of 00:00:00 [facility] DTAP 2003-08-04 Completed [facility] of 00:00:00 [facility] HIB 4 Dose Schedule 2003-08-04 Completed Unive rsity of 00:00:00 [facility] HIB 4 Dose Schedule 2003-08-04 Completed Unive rsity of 00:00:00 [facility] DTAP 2003-08-04 Completed [facility] of 00:00:00 [facility] HIB 4 Dose Schedule 2003-08-04 Completed Unive rsity of 00:00:00 [facility] DTAP 2003-08-04 Completed [facility] of 00:00:00 [facility] HIB 4 Dose Schedule 2003-08-04 Completed Unive rsity of 00:00:00 [facility] DTAP 2003-08-04 Completed [facility] of 00:00:00 [facility] HIB 4 Dose Schedule 2003-08-04 Completed Unive rsity of 00:00:00 [facility] DTAP 2003-08-04 Completed [facility] of 00:00:00 [facility] HIB 4 Dose Schedule 2003-08-04 Completed Unive rsity of 00:00:00 [facility] DTAP 2003-08-04 Completed University of [...] Schedule 2003-08-04 Completed Unive rsity of 00:00:00 [facility] DTAP 2003-08-04 Completed [facility] of 00:00:00 [facility] HIB 4 Dose Schedule 2003-08-04 Completed Unive rsity of 00:00:00 [facility] DTAP 2003-08-04 Completed [facility] of 00:00:00 [facility] HIB 4 Dose Schedule 2003-08-04 Completed Unive rsity of 00:00:00 [facility] DTAP 2003-08-04 Completed [facility] of 00:00:00 [facility] HIB 4 Dose Schedule 2003-08-04 Completed Unive rsity of 00:00:00 [facility] DTAP 2003-08-04 Completed [facility] of 00:00:00 [facility] HIB 4 Dose Schedule 2003-08-04 Completed Unive rsity of 00:00:00 [facility] DTAP 2003-08-04 Completed [facility] of 00:00:00 [facility] DTAP 2003-08-04 Completed [facility] of 00:00:00 [facility] HIB 4 Dose Schedule 2003-08-04 Completed Unive rsity of 00:00:00 [facility] HIB 4 Dose Schedule 2003-08-04 Completed Unive rsity of 00:00:00 [facility] DTAP 2003-08-04 Completed [facility] of 00:00:00 [facility] HIB 4 Dose Schedule 2003-08-04 Completed Unive rsity of 00:00:00 [facility] DTAP 2003-08-04 Completed [facility] of 00:00:00 [facility] HIB 4 Dose Schedule 2003-08-04 Completed Unive rsity of 00:00:00 [facility] DTAP 2003-08-04 Completed [facility] of 00:00:00 [facility] HIB 4 Dose Schedule 2003-08-04 Completed Unive rsity of 00:00:00 [facility] DTAP 2003-08-04 Completed University of [...] Branch DTAP 2003-08-04 Completed [facility] of 00:00:00 [facility] HIB 4 Dose Schedule 2003-08-04 Completed Unive rsity of 00:00:00 [facility] HIB 4 Dose Schedule 2003-08-04 Completed Unive rsity of 00:00:00 [facility] DTAP 2003-08-04 Completed [facility] of 00:00:00 [facility] HIB 4 Dose Schedule 2003-08-04 Completed Unive rsity of 00:00:00 [facility] DTAP 2003-08-04 Completed [facility] of 00:00:00 [facility] HIB 4 Dose Schedule 2003-08-04 Completed Unive rsity of 00:00:00 [facility] DTAP 2003-08-04 Completed [facility] of 00:00:00 [facility] HIB 4 Dose Schedule 2003-08-04 Completed Unive rsity of 00:00:00 [facility] DTAP 2003-08-04 Completed [facility] of 00:00:00 [facility] HIB 4 Dose Schedule 2003-08-04 Completed Unive rsity of 00:00:00 [facility] DTAP 2003-08-04 Completed [facility] of 00:00:00 [facility] HIB 4 Dose Schedule 2003-08-04 Completed Unive rsity of 00:00:00 [facility] DTAP 2003-08-04 Completed [facility] of 00:00:00 [facility] HIB 4 Dose Schedule 2003-08-04 Completed Unive rsity of 00:00:00 [facility] DTAP 2003-08-04 Completed [facility] of 00:00:00 [facility] HIB 4 Dose Schedule 2003-08-04 Completed Unive rsity of 00:00:00 [facility] DTAP 2003-08-04 Completed [facility] of 00:00:00 [facility] HIB 4 Dose Schedule 2003-08-04 Completed Unive rsity of 00:00:00 [facility] DTAP 2003-08-04 Completed [facility] of 00:00:00 [facility] HIB 4 Dose Schedule 2003-08-04 Completed Unive rsity of 00:00:00 [facility] DTAP 2003-08-04 Completed [facility] of 00:00:00 [facility] HIB 4 Dose Schedule 2003-08-04 Completed Unive rsity of 00:00:00 [facility] DTAP 2003-08-04 Completed [facility] of 00:00:00 [facility] HIB 4 Dose Schedule 2003-08-04 Completed Unive rsity of 00:00:00 [facility] DTAP 2003-08-04 Completed [facility] of 00:00:00 [facility] DTAP 2003-08-04 Completed [facility] of 00:00:00 [facility] HIB 4 Dose Schedule 2003-08-04 Completed Unive rsity of 00:00:00 [facility] HIB 4 Dose Schedule 2003-08-04 Completed Unive rsity of 00:00:00 [facility] DTAP 2003-08-04 Completed [facility] of 00:00:00 [facility] HIB 4 Dose Schedule 2003-08-04 Completed Unive rsity of 00:00:00 [facility] DTAP 2003-08-04 Completed [facility] of 00:00:00 [facility] HIB 4 Dose Schedule 2003-08-04 Completed Unive rsity of 00:00:00 [facility] DTAP 2003-08-04 Completed [facility] of 00:00:00 [facility] HIB 4 Dose Schedule 2003-08-04 Completed Unive rsity of 00:00:00 [facility] DTAP 2003-08-04 Completed [facility] of 00:00:00 [facility] HIB 4 Dose Schedule 2003-08-04 Completed Unive rsity of 00:00:00 [facility] DTAP 2003-08-04 Completed [facility] of 00:00:00 [facility] HIB 4 Dose Schedule 2003-08-04 Completed Unive rsity of 00:00:00 [facility] DTAP 2003-08-04 Completed [facility] of 00:00:00 [facility] HIB 4 Dose Schedule 2003-08-04 Completed Unive rsity of 00:00:00 [facility] DTAP 2003-08-04 Completed [facility] of 00:00:00 [facility] HIB 4 Dose Schedule 2003-08-04 Completed Unive rsity of 00:00:00 [facility] DTAP 2003-08-04 Completed [facility] of 00:00:00 [facility] HIB 4 Dose Schedule 2003-08-04 Completed Unive rsity of 00:00:00 [facility] DTAP 2003-08-04 Completed [facility] of 00:00:00 [facility] HIB 4 Dose Schedule 2003-08-04 Completed Unive rsity of 00:00:00 [facility] DTAP 2003-08-04 Completed [facility] of 00:00:00 [facility] HIB 4 Dose Schedule 2003-08-04 Completed Unive rsity of 00:00:00 [facility] DTAP 2003-08-04 Completed University of 00:00:00 [facility] HIB 4 Dose Schedule 2003-08-04 Completed Unive rsity of 00:00:00 [facility] DTAP 2003-08-04 Completed [facility] of 00:00:00 [facility] DTAP 2003-08-04 Completed [facility] of 00:00:00 [facility] HIB 4 Dose Schedule 2003-08-04 Completed Unive rsity of 00:00:00 [facility] HIB 4 Dose Schedule 2003-08-04 Completed Unive rsity of 00:00:00 [facility] DTAP 2003-08-04 Completed University of 00:00:00 [facility] MMR 2003-05-05 Completed University of 00:00:00 [facility] Polio (IPV/OPV) 2003-05-05 Completed Universit y of 00:00:00 [facility] Pneumococcal 7 2003-05-05 Completed [facility] of Conjugate, PCV7 00:00:00 [facility] (Pre[facility]ar[facility] 2003-05-05 Completed [facility] of 00:00:00 [facility] MMR 2003-05-05 Completed University of 00:00:00 [facility] Polio (IPV/OPV) 2003-05-05 Completed Universit y of 00:00:00 [facility] Pneumococcal 7 2003-05-05 Completed [facility] of Conjugate, PCV7 00:00:00 [facility] (Pre[facility]ar[facility]) [place] Polio (IPV/OPV) 2003-05-05 Completed Universit y of 00:00:00 [facility] MMR 2003-05-05 Completed University of 00:00:00 [facility] Polio (IPV/OPV) 2003-05-05 Completed Universit y of 00:00:00 [facility] Pneumococcal 7 2003-05-05 Completed [facility] of Conjugate, PCV7 00:00:00 [facility] (Prevnar7[facility] MMR 2003-05-05 Completed [facility] of 00:00:00 [facility] Polio (IPV/OPV) 2003-05-05 Completed Universit y of 00:00:00 [facility] Pneumococcal 7 2003-05-05 Completed [facility] of Conjugate, PCV7 00:00:00 [facility] (Prevnar7) [facility] Pneumococcal 7 2003-05-05 Completed [facility] of Conjugate, PCV7 00:00:00 [facility] (Prevnar[facility] 2003-05-05 Completed [facility] of 00:00:00 [facility] Polio (IPV/OPV) 2003-05-05 Completed Universit y of 00:00:00 [facility] Pneumococcal 7 2003-05-05 Completed [facility] of Conjugate, PCV7 00:00:00 [facility] (Prevnar[facility] 2003-05-05 Completed [facility] of 00:00:00 [facility] Polio (IPV/OPV) 2003-05-05 Completed Universit y of 00:00:00 [facility] Pneumococcal 7 2003-05-05 Completed [facility] of Conjugate, PCV7 00:00:00 [facility] (Prevnar[facility] 2003-05-05 Completed [facility] of 00:00:00 [facility] Polio (IPV/OPV) 2003-05-05 Completed Universit y of 00:00:00 [facility] Pneumococcal 7 2003-05-05 Completed [facility] of Conjugate, PCV7 00:00:00 [facility] (Prevnar[facility] 2003-05-05 Completed [facility] of 00:00:00 [facility] Polio (IPV/OPV) 2003-05-05 Completed Universit y of 00:00:00 [facility] Pneumococcal 7 2003-05-05 Completed [facility] of Conjugate, PCV7 00:00:00 [facility] (Prevnar[facility] 2003-05-05 Completed [facility] of 00:00:00 [facility] Polio (IPV/OPV) 2003-05-05 Completed Universit y of 00:00:00 [facility] Pneumococcal 7 2003-05-05 Completed [facility] of Conjugate, PCV7 00:00:00 [facility] (Prevnar[facility] 2003-05-05 Completed [facility] of 00:00:00 [facility] Polio (IPV/OPV) 2003-05-05 Completed Universit y of 00:00:00 [facility] Pneumococcal 7 2003-05-05 Completed [facility] of Conjugate, PCV7 00:00:00 [facility] (Prevnar7) [facility] 2003-05-05 Completed [facility] of 00:00:00 [facility] 2003-05-05 Completed [facility] of 00:00:00 [facility] Polio (IPV/OPV) 2003-05-05 Completed Universit y of 00:00:00 [facility] Pneumococcal 7 2003-05-05 Completed [facility] of Conjugate, PCV7 00:00:00 [facility] (Prevnar[facility] 2003-05-05 Completed [facility] of 00:00:00 [facility] Polio (IPV/OPV) 2003-05-05 Completed Universit y of 00:00:00 [facility] Polio (IPV/OPV) 2003-05-05 Completed [facility]it y of 00:00:00 [facility] Pneumococcal 7 2003-05-05 Completed [facility] of Conjugate, PCV7 00:00:00 [facility] (Prevnar[facility]) [facility] 2003-05-05 Completed [facility] of 00:00:00 [facility] Polio (IPV/OPV) 2003-05-05 Completed Universit y of 00:00:00 [facility] Pneumococcal 7 2003-05-05 Completed [facility] of Conjugate, PCV7 00:00:00 [facility] (Prevnar7) [facility] Pneumococcal 7 2003-05-05 Completed [facility] of Conjugate, PCV7 00:00:00 [facility] (Prevnar7) [facility] 2003-05-05 Completed [facility] of 00:00:00 [facility] Polio (IPV/OPV) 2003-05-05 Completed Universit y of 00:00:00 [facility] Pneumococcal 7 2003-05-05 Completed [facility] of Conjugate, PCV7 00:00:00 [facility] (Prevnar7) [facility] 2003-05-05 Completed [facility] of 00:00:00 [facility] Polio (IPV/OPV) 2003-05-05 Completed Universit y of 00:00:00 [facility] Pneumococcal 7 2003-05-05 Completed [facility] Conjugate, PCV7 00:00:00 [facility]Pre[facility]ar[facility] 2003-05-05 Completed [facility] of 00:00:00 [facility] Polio (IPV/OPV) 2003-05-05 Completed [facility]it y of 00:00:00 [facility] Pneumococcal 7 2003-05-05 Completed [facility] of Conjugate, PCV7 00:00:00 [facility] (Prevnar7) [facility] 2003-05-05 Completed [facility] of 00:00:00 [facility] Polio (IPV/OPV) 2003-05-05 Completed [facility]it y of 00:00:00 [facility] Pneumococcal 7 2003-05-05 Completed [facility] of Conjugate, PCV7 00:00:00 [facility] (Prevnar7) [facility] 2003-05-05 Completed [facility] of 00:00:00 [facility] Polio (IPV/OPV) 2003-05-05 Completed [facility]it y of 00:00:00 [facility] Pneumococcal 7 2003-05-05 Completed [facility] of Conjugate, PCV7 00:00:00 [facility] (Prevnar7) [facility] 2003-05-05 Completed [facility] of 00:00:00 [facility] Polio (IPV/OPV) 2003-05-05 Completed [facility]it y of 00:00:00 [facility] Pneumococcal 7 2003-05-05 Completed [facility] Conjugate, PCV7 00:00:00 [facility] (Prevnar7[facility] 2003-05-05 Completed [facility] of 00:00:00 [facility] Polio (IPV/OPV) 2003-05-05 Completed [facility]it y of 00:00:00 [facility] Pneumococcal 7 2003-05-05 Completed [facility] Conjugate, PCV7 00:00:00 [facility] (Prevnar7) [facility] 2003-05-05 Completed [facility] of 00:00:00 [facility] Polio (IPV/OPV) 2003-05-05 Completed [facility]it y of 00:00:00 [facility] Pneumococcal 7 2003-05-05 Completed [facility] Conjugate, PCV7 00:00:00 [facility] (Prevnar7[facility] 2003-05-05 Completed [facility] of 00:00:00 [facility] 2003-05-05 Completed [facility] of 00:00:00 [facility] Polio (IPV/OPV) 2003-05-05 Completed [facility]it y of 00:00:00 [facility] Pneumococcal 7 2003-05-05 Completed [facility] of Conjugate, PCV7 00:00:00 [facility] (Prevnar7) [facility] Polio (IPV/OPV) 2003-05-05 Completed [facility]it y of 00:00:00 [facility] 2003-05-05 Completed [facility] of 00:00:00 [facility] Polio (IPV/OPV) 2003-05-05 Completed [facility]it y of 00:00:00 [facility] Pneumococcal 7 2003-05-05 Completed [facility] of Conjugate, PCV7 00:00:00 [facility] (Prevnar7[facility] 2003-05-05 Completed [facility] of 00:00:00 [facility] Polio (IPV/OPV) 2003-05-05 Completed [facility]it y of 00:00:00 [facility] Pneumococcal 7 2003-05-05 Completed [facility] Conjugate, PCV7 00:00:00 [facility] (Prevnar7[facility] Pneumococcal 7 2003-05-05 Completed [facility] Conjugate, PCV7 00:00:00 [facility] (Prevnar7) [facility] 2003-05-05 Completed [facility] of 00:00:00 [facility] Polio (IPV/OPV) 2003-05-05 Completed [facility]it y of 00:00:00 [facility] Pneumococcal 7 2003-05-05 Completed [facility] of Conjugate, PCV7 00:00:00 [facility] (Prevnar7) [facility] 2003-05-05 Completed [facility] of 00:00:00 [facility] Polio (IPV/OPV) 2003-05-05 Completed [facility]it y of 00:00:00 [facility] Pneumococcal 7 2003-05-05 Completed [facility] Conjugate, PCV7 00:00:00 [facility] (Prevnar7) [facility] 2003-05-05 Completed [facility] of 00:00:00 [facility] Polio (IPV/OPV) 2003-05-05 Completed [facility]it y of 00:00:00 [facility] Pneumococcal 7 2003-05-05 Completed [facility] of Conjugate, PCV7 00:00:00 [facility] (Prevnar7) [facility] 2003-05-05 Completed [facility] of 00:00:00 [facility] Polio (IPV/OPV) 2003-05-05 Completed [facility]it y of 00:00:00 [facility] Pneumococcal 7 2003-05-05 Completed [facility] of Conjugate, PCV7 00:00:00 [facility] (Prevnar7) [facility] 2003-05-05 Completed [facility] of 00:00:00 [facility] Polio (IPV/OPV) 2003-05-05 Completed [facility] of 00:00:00 [facility] Pneumococcal 7 2003-05-05 Completed [facility] Conjugate, PCV7 00:00:00 [facility]Pre[facility]ar[facility] 2003-05-05 Completed [facility] of 00:00:00 [facility] 2003-05-05 Completed [facility] of 00:00:00 [facility] Polio (IPV/OPV) 2003-05-05 Completed [facility]it [facility] of 00:00:00 [facility] Pneumococcal 7 2003-05-05 Completed [facility] of Conjugate, PCV7 00:00:00 [facility] (Prevnar7) [facility] Polio (IPV/OPV) 2003-05-05 Completed [facility] 00:00:00 [facility] 2003-05-05 Completed [facility] of 00:00:00 [facility] Polio (IPV/OPV) 2003-05-05 Completed [facility] of 00:00:00 [facility] Pneumococcal 7 2003-05-05 Completed [facility] Conjugate, PCV7 00:00:00 [facility] (Prevnar[facility]) [facility] 2003-05-05 Completed [facility] of 00:00:00 [facility] Polio (IPV/OPV) 2003-05-05 Completed [facility] 00:00:00 [facility] Pneumococcal 7 2003-05-05 Completed [facility] Conjugate, PCV7 00:00:00 [facility] (Prevnar7) [facility] Pneumococcal 7 2003-05-05 Completed [facility] Conjugate, PCV7 00:00:00 [facility] (Prevnar7) [facility] 2003-05-05 Completed [facility] of 00:00:00 [facility] Polio (IPV/OPV) 2003-05-05 Completed [facility] 00:00:00 [facility] Pneumococcal 7 2003-05-05 Completed [facility] of Conjugate, PCV7 00:00:00 [facility] (Prevnar7) [facility] 2003-05-05 Completed [facility] of 00:00:00 [facility] Polio (IPV/OPV) 2003-05-05 Completed [facility] 00:00:00 [facility] Pneumococcal 7 2003-05-05 Completed [facility] Conjugate, PCV7 00:00:00 [facility] (Prevnar7) [facility] 2003-05-05 Completed [facility] of 00:00:00 [facility] Polio (IPV/OPV) 2003-05-05 Completed [facility] 00:00:00 [facility] Pneumococcal 7 2003-05-05 Completed [facility] Conjugate, PCV7 00:00:00 [facility] (Prevnar[facility]) [facility] 2003-05-05 Completed [facility] of 00:00:00 [facility] Polio (IPV/OPV) 2003-05-05 Completed [facility] 00:00:00 [facility] Pneumococcal 7 2003-05-05 Completed [facility] Conjugate, PCV7 00:00:00 [facility] (Prevnar7) [facility] 2003-05-05 Completed [facility] of 00:00:00 [facility] Polio (IPV/OPV) 2003-05-05 Completed [facility] 00:00:00 [facility] Pneumococcal 7 2003-05-05 Completed [facility] of Conjugate, PCV7 00:00:00 [facility] (Pre[facility] 2003-05-05 Completed [facility] of 00:00:00 [facility] Polio (IPV/OPV) 2003-05-05 Completed [facility]it y of 00:00:00 [facility] Pneumococcal 7 2003-05-05 Completed [facility] of Conjugate, PCV7 00:00:00 [facility] (Pre[facility] 2003-05-05 Completed [facility] of 00:00:00 [facility] Polio (IPV/OPV) 2003-05-05 Completed [facility]it y of 00:00:00 [facility] 2003-05-05 Completed [facility] of 00:00:00 [facility] Pneumococcal 7 2003-05-05 Completed [facility] of Conjugate, PCV7 00:00:00 [facility] (Prevnar7[facility] 2003-05-05 Completed [facility] of 00:00:00 [facility] Polio (IPV/OPV) 2003-05-05 Completed [facility]it [facility] of 00:00:00 [facility] Pneumococcal 7 2003-05-05 Completed [facility] of Conjugate, PCV7 00:00:00 [facility] (Prevnar7) [facility] Polio (IPV/OPV) 2003-05-05 Completed [facility] 00:00:00 [facility] 2003-05-05 Completed [facility] of 00:00:00 [facility] Polio (IPV/OPV) 2003-05-05 Completed [facility] of 00:00:00 [facility] Pneumococcal 7 2003-05-05 Completed [facility] of Conjugate, PCV7 00:00:00 [facility] (Prevnar7) [facility] Pneumococcal 7 2003-05-05 Completed [facility] Conjugate, PCV7 00:00:00 [facility] (Prevnar7[facility] 2003-05-05 Completed [facility] of 00:00:00 [facility] Polio (IPV/OPV) 2003-05-05 Completed [facility]it y of 00:00:00 [facility] Pneumococcal 7 2003-05-05 Completed [facility] Conjugate, PCV7 00:00:00 [facility] (Prevnar7[facility] 2003-05-05 Completed [facility] of 00:00:00 [facility] Polio (IPV/OPV) 2003-05-05 Completed [facility]it y of 00:00:00 [facility] Pneumococcal 7 2003-05-05 Completed [facility] Conjugate, PCV7 00:00:00 [facility] (Prevnar7[facility] 2003-05-05 Completed [facility] of 00:00:00 [facility] Polio (IPV/OPV) 2003-05-05 Completed [facility]it y of 00:00:00 [facility] Pneumococcal 7 2003-05-05 Completed [facility] of Conjugate, PCV7 00:00:00 [facility] (Prevnar7[facility] 2003-05-05 Completed [facility] of 00:00:00 [facility] Polio (IPV/OPV) 2003-05-05 Completed [facility] of 00:00:00 [facility] Pneumococcal 7 2003-05-05 Completed [facility] Conjugate, PCV7 00:00:00 [facility] (Prevnar7[facility] 2003-05-05 Completed [facility] of 00:00:00 [facility] 2003-05-05 Completed [facility] of 00:00:00 [facility] Polio (IPV/OPV) 2003-05-05 Completed [facility] of 00:00:00 [facility] Polio (IPV/OPV) 2003-05-05 Completed [facility] of 00:00:00 [facility] Pneumococcal 7 2003-05-05 Completed [facility] of Conjugate, PCV7 00:00:00 [facility] (Prevnar7[facility] 2003-05-05 Completed [facility] of 00:00:00 [facility] Polio (IPV/OPV) 2003-05-05 Completed [facility]it [facility] of 00:00:00 [facility] Pneumococcal 7 2003-05-05 Completed [facility] of Conjugate, PCV7 00:00:00 [facility] (Prevnar7) [facility] Pneumococcal 7 2003-05-05 Completed [facility] of Conjugate, PCV7 00:00:00 [facility] (Prevnar7) [facility] 2003-05-05 Completed [facility] of 00:00:00 [facility] Polio (IPV/OPV) 2003-05-05 Completed [facility] of 00:00:00 [facility] Pneumococcal 7 2003-05-05 Completed [facility] Conjugate, PCV7 00:00:00 [facility] (Prevnar7) [facility] 2003-05-05 Completed [facility] of 00:00:00 [facility] Polio (IPV/OPV) 2003-05-05 Completed [facility] of 00:00:00 [facility] Pneumococcal 7 2003-05-05 Completed [facility] Conjugate, PCV7 00:00:00 [facility] (Prevnar7) [facility] 2003-05-05 Completed [facility] of 00:00:00 [facility] Polio (IPV/OPV) 2003-05-05 Completed [facility] of 00:00:00 [facility] Pneumococcal 7 2003-05-05 Completed [facility] Conjugate, PCV7 00:00:00 [facility] (Prevnar7) [facility] 2003-05-05 Completed [facility] of 00:00:00 [facility] Polio (IPV/OPV) 2003-05-05 Completed [facility] of 00:00:00 [facility] Pneumococcal 7 2003-05-05 Completed [facility] Conjugate, PCV7 00:00:00 [facility] (Prevnar7) [facility] 2003-05-05 Completed [facility] of 00:00:00 [facility] Polio (IPV/OPV) 2003-05-05 Completed [facility] of 00:00:00 [facility] Pneumococcal 7 2003-05-05 Completed [facility] Conjugate, PCV7 00:00:00 [facility] (Prevnar7) [facility] 2003-05-05 Completed [facility] of 00:00:00 [facility] 2003-05-05 Completed [facility] of 00:00:00 [facility] Polio (IPV/OPV) 2003-05-05 Completed [facility]it y of 00:00:00 [facility] Pneumococcal 7 2003-05-05 Completed [facility] of Conjugate, PCV7 00:00:00 [facility] (Prevnar7) [facility] Polio (IPV/OPV) 2003-05-05 Completed [facility] of 00:00:00 [facility] 2003-05-05 Completed [facility] 00:00:00 [facility] Polio (IPV/OPV) 2003-05-05 Completed [facility] of 00:00:00 [facility] Pneumococcal 7 2003-05-05 Completed [facility] of Conjugate, PCV7 00:00:00 [facility] (Prevnar7) [facility] 2003-05-05 Completed [facility] of 00:00:00 [facility] Polio (IPV/OPV) 2003-05-05 Completed [facility] of 00:00:00 [facility] Pneumococcal 7 2003-05-05 Completed [facility] Conjugate, PCV7 00:00:00 [facility] (Prevnar7) [facility] Pneumococcal 7 2003-05-05 Completed [facility] Conjugate, PCV7 00:00:00 [facility] (Prevnar7) [facility] 2003-05-05 Completed [facility] of 00:00:00 [facility] Polio (IPV/OPV) 2003-05-05 Completed [facility] of 00:00:00 [facility] Pneumococcal 7 2003-05-05 Completed [facility] Conjugate, PCV7 00:00:00 [facility] (Prevnar7) [facility] 2003-05-05 Completed [facility] of 00:00:00 [facility] Polio (IPV/OPV) 2003-05-05 Completed [facility] of 00:00:00 [facility] Pneumococcal 7 2003-05-05 Completed [facility] Conjugate, PCV7 00:00:00 [facility] (Prevnar7) [facility] 2003-05-05 Completed [facility] of 00:00:00 [facility] Polio (IPV/OPV) 2003-05-05 Completed [facility] of 00:00:00 [facility] Pneumococcal 7 2003-05-05 Completed [facility] Conjugate, PCV7 00:00:00 [facility] (Prevnar7) [facility] 2003-05-05 Completed [facility] of 00:00:00 [facility] Polio (IPV/OPV) 2003-05-05 Completed [facility] of 00:00:00 [facility] Pneumococcal 7 2003-05-05 Completed [facility] Conjugate, PCV7 00:00:00 [facility] (Prevnar7) [facility] 2003-05-05 Completed [facility] of 00:00:00 [facility] Polio (IPV/OPV) 2003-05-05 Completed [facility] of 00:00:00 [facility] Pneumococcal 7 2003-05-05 Completed [facility] Conjugate, PCV7 00:00:00 [place] [facility] 2003-05-05 Completed [facility] of 00:00:00 [facility] Polio (IPV/OPV) 2003-05-05 Completed [facility]it [facility] of 00:00:00 [facility] Pneumococcal 7 2003-05-05 Completed [facility] of Conjugate, PCV7 00:00:00 [facility] (Prevnar7) [facility] 2003-05-05 Completed [facility] of 00:00:00 [facility] Polio (IPV/OPV) 2003-05-05 Completed [facility]it [facility] of 00:00:00 [facility] Pneumococcal 7 2003-05-05 Completed [facility] Conjugate, PCV7 00:00:00 [facility] (Prevnar7) [facility] 2003-05-05 Completed [facility] of 00:00:00 [facility] Polio (IPV/OPV) 2003-05-05 Completed [facility] of 00:00:00 [facility] Pneumococcal 7 2003-05-05 Completed [facility] Conjugate, PCV7 00:00:00 [facility] (Prevnar7) [facility] 2003-05-05 Completed [facility] of 00:00:00 [facility] Polio (IPV/OPV) 2003-05-05 Completed [facility] of 00:00:00 [facility] Pneumococcal 7 2003-05-05 Completed [facility] Conjugate, PCV7 00:00:00 [facility] (Prevnar7) [facility] 2003-05-05 Completed [facility] of 00:00:00 [facility] Polio (IPV/OPV) 2003-05-05 Completed [facility] of 00:00:00 [facility] Pneumococcal 7 2003-05-05 Completed [facility] of Conjugate, PCV7 00:00:00 [place] [facility] (Prevnar7) [facility] 2003-05-05 Completed [facility] of 00:00:00 [facility] 2003-05-05 Completed [facility] of 00:00:00 [facility] Polio (IPV/OPV) 2003-05-05 Completed [facility] of 00:00:00 [facility] Pneumococcal 7 2003-05-05 Completed [facility] of Conjugate, PCV7 00:00:00 [facility] (Prevnar7) [facility] Polio (IPV/OPV) 2003-05-05 Completed [facility] of 00:00:00 [facility] 2003-05-05 Completed [facility] of 00:00:00 [facility] Polio (IPV/OPV) 2003-05-05 Completed [facility] of 00:00:00 [facility] Pneumococcal 7 2003-05-05 Completed [facility] of Conjugate, PCV7 00:00:00 [place] [facility] (Prevnar7) [facility] 2003-05-05 Completed [facility] of 00:00:00 [facility] Pneumococcal 7 2003-05-05 Completed [facility] of Conjugate, PCV7 00:00:00 [place] [facility] (Prevnar7) [place] Polio (IPV/OPV) 2003-05-05 Completed [facility]it y of 00:00:00 [facility] Pneumococcal 7 2003-05-05 Completed [facility] of Conjugate, PCV7 00:00:00 [place] [facility] (Prevnar7) [facility] 2003-05-05 Completed [facility] of 00:00:00 [facility] Polio (IPV/OPV) 2003-05-05 Completed [facility] of 00:00:00 [facility] Pneumococcal 7 2003-05-05 Completed [facility] Conjugate, PCV7 00:00:00 [facility] (Prevnar7) [facility] 2003-05-05 Completed [facility] of 00:00:00 [facility] Polio (IPV/OPV) 2003-05-05 Completed [facility] of 00:00:00 [facility] Pneumococcal 7 2003-05-05 Completed [facility] Conjugate, PCV7 00:00:00 [facility] (Prevnar7) [facility] 2003-05-05 Completed [facility] of 00:00:00 [facility] Polio (IPV/OPV) 2003-05-05 Completed [facility] of 00:00:00 [facility] Pneumococcal 7 2003-05-05 Completed [facility] of Conjugate, PCV7 00:00:00 [facility] (Prevnar7) [facility] 2003-05-05 Completed [facility] of 00:00:00 [facility] Polio (IPV/OPV) 2003-05-05 Completed [facility] of 00:00:00 [facility] Pneumococcal 7 2003-05-05 Completed [facility] of Conjugate, PCV7 00:00:00 [facility] (Prevnar7) [facility] 2003-05-05 Completed [facility] of 00:00:00 [facility] Polio (IPV/OPV) 2003-05-05 Completed [facility]it y of 00:00:00 [facility] Pneumococcal 7 2003-05-05 Completed [facility] of Conjugate, PCV7 00:00:00 [facility] (Prevnar7) [facility] MMR 2003-05-05 Completed [facility] of 00:00:00 [facility] Polio (IPV/OPV) 2003-05-05 Completed [facility]it [facility] of 00:00:00 [facility] Pneumococcal 7 2003-05-05 Completed [facility] of Conjugate, PCV7 00:00:00 [facility] (Prevnar7) [facility] MMR 2003-05-05 Completed [facility] of 00:00:00 [facility] Polio (IPV/OPV) 2003-05-05 Completed [facility]it y of 00:00:00 [facility] Pneumococcal 7 2003-05-05 Completed [facility] of Conjugate, PCV7 00:00:00 [facility] ical (Prevnar7) Branch HIB 4 Dose Schedule 2002 Completed Unive rsity of 00:00:00 [facility] Hep B, Adol or Pedi 2002 Completed Unive rsity of Dosage 00:00:00 [facility] Hep B, Adol or Pedi 2002 Completed Unive rsity of Dosage 00:00:00 [facility] DTAP 2002 Completed University of 00:00:00 [facility] HIB 4 Dose Schedule 2002 Completed Unive rsity of 00:00:00 [facility] Hep B, Adol or Pedi 2002 Completed Unive rsity of Dosage 00:00:00 [facility] DTAP 2002 Completed University of 00:00:00 [facility] HIB 4 Dose Schedule 2002 Completed Unive rsity of 00:00:00 [facility] Hep B, Adol or Pedi 2002 Completed Unive rsity of Dosage 00:00:00 [facility] DTAP 2002 Completed University of 00:00:00 [facility] HIB 4 Dose Schedule 2002 Completed Unive rsity of 00:00:00 [facility] Hep B, Adol or Pedi 2002 Completed Unive rsity of Dosage 00:00:00 [facility] DTAP 2002 Completed [facility] of 00:00:00 [facility] HIB 4 Dose Schedule 2002 Completed Unive rsity of 00:00:00 [facility] Hep B, Adol or Pedi 2002 Completed Unive rsity of Dosage 00:00:00 [facility] DTAP 2002 Completed [facility] of 00:00:00 [facility] HIB 4 Dose Schedule 2002 Completed Unive rsity of 00:00:00 [facility] Hep B, Adol or Pedi 2002 Completed Unive rsity of Dosage 00:00:00 [facility] DTAP 2002 Completed [facility] of 00:00:00 [facility] HIB 4 Dose Schedule 2002 Completed Unive rsity of 00:00:00 [facility] Hep B, Adol or Pedi 2002 Completed Unive rsity of Dosage 00:00:00 [facility] DTAP 2002 Completed [facility] of 00:00:00 [facility] HIB 4 Dose Schedule 2002 Completed Unive rsity of 00:00:00 [facility] Hep B, Adol or Pedi 2002 Completed Unive rsity of Dosage 00:00:00 [facility] DTAP 2002 Completed [facility] of 00:00:00 [facility] DTAP 2002 Completed [facility] of 00:00:00 [facility] HIB 4 Dose Schedule 2002 Completed Unive rsity of 00:00:00 [facility] Hep B, Adol or Pedi 2002 Completed Unive rsity of Dosage 00:00:00 [facility] HIB 4 Dose Schedule 2002 Completed Unive rsity of 00:00:00 [facility] DTAP 2002 Completed [facility] of 00:00:00 [facility] HIB 4 Dose Schedule 2002 Completed Unive rsity of 00:00:00 [facility] Hep B, Adol or Pedi 2002 Completed Unive rsity of Dosage 00:00:00 [facility] Hep B, Adol or Pedi 2002 Completed Unive rsity of Dosage 00:00:00 [facility] DTAP 2002 Completed [facility] of 00:00:00 [facility] HIB 4 Dose Schedule 2002 [...] 2002 Completed Unive rsity of Dosage 00:00:00 [facility] DTAP 2002 Completed [facility] of 00:00:00 [facility] HIB 4 Dose Schedule 2002 Completed Unive rsity of 00:00:00 [facility] Hep B, Adol or Pedi 2002 Completed Unive rsity of Dosage 00:00:00 [facility] DTAP 2002 Completed [facility] of 00:00:00 [facility] HIB 4 Dose Schedule 2002 Completed Unive rsity of 00:00:00 [facility] Hep B, Adol or Pedi 2002 Completed Unive rsity of Dosage 00:00:00 [facility] DTAP 2002 Completed [facility] of 00:00:00 [facility] HIB 4 Dose Schedule 2002 Completed Unive rsity of 00:00:00 [facility] Hep B, Adol or Pedi 2002 Completed Unive rsity of Dosage 00:00:00 [facility] DTAP 2002 Completed [facility] of 00:00:00 [facility] HIB 4 Dose Schedule 2002 Completed Unive rsity of 00:00:00 [facility] Hep B, Adol or Pedi 2002 Completed Unive rsity of Dosage 00:00:00 [facility] DTAP 2002 Completed [facility] of 00:00:00 [facility] HIB 4 Dose Schedule 2002 Completed Unive rsity of 00:00:00 [facility] Hep B, Adol or Pedi 2002 Completed Unive rsity of Dosage 00:00:00 [facility] DTAP 2002 Completed [facility] of 00:00:00 [facility] HIB 4 Dose Schedule 2002 Completed Unive rsity of 00:00:00 [facility] Hep B, Adol or Pedi 2002 Completed Unive rsity of Dosage 00:00:00 [facility] DTAP 2002 Completed [facility] of 00:00:00 [facility] DTAP 2002 Completed [facility] of 00:00:00 [facility] HIB 4 Dose Schedule 2002 Completed Unive rsity of 00:00:00 [facility] Hep B, Adol or Pedi 2002 Completed Unive rsity of Dosage 00:00:00 [facility] DTAP 2002 Completed University of [...] 2002 Completed Unive rsity of Dosage 00:00:00 [facility] DTAP 2002 Completed [facility] of 00:00:00 [facility] HIB 4 Dose Schedule 2002 Completed Unive rsity of 00:00:00 [facility] Hep B, Adol or Pedi 2002 Completed Unive rsity of Dosage 00:00:00 [facility] DTAP 2002 Completed University of [...] Schedule 2002 Completed Unive rsity of 00:00:00 [facility] Hep B, Adol or Pedi 2002 Completed Unive rsity of Dosage 00:00:00 [facility] DTAP 2002 Completed [facility] of 00:00:00 [facility] HIB 4 Dose Schedule 2002 Completed Unive rsity of 00:00:00 [facility] Hep B, Adol or Pedi 2002 Completed Unive rsity of Dosage 00:00:00 [facility] DTAP 2002 Completed [facility] of 00:00:00 [facility] HIB 4 Dose Schedule 2002 Completed Unive rsity of 00:00:00 [facility] Hep B, Adol or Pedi 2002 Completed Unive rsity of Dosage 00:00:00 [facility] DTAP 2002 Completed [facility] of 00:00:00 [facility] DTAP 2002 Completed [facility] of 00:00:00 [facility] HIB 4 Dose Schedule 2002 Completed Unive rsity of 00:00:00 [facility] Hep B, Adol or Pedi 2002 Completed Unive rsity of Dosage 00:00:00 [facility] HIB 4 Dose Schedule 2002 Completed Unive rsity of 00:00:00 [facility] DTAP 2002 Completed [facility] of 00:00:00 [facility] HIB 4 Dose Schedule 2002 Completed Unive rsity of 00:00:00 [facility] Hep B, Adol or Pedi 2002 Completed Unive rsity of Dosage 00:00:00 [facility] Hep B, Adol or Pedi 2002 Completed Unive rsity of Dosage 00:00:00 [facility] DTAP 2002 Completed [facility] of 00:00:00 [facility] HIB 4 Dose Schedule 2002 Completed Unive rsity of 00:00:00 [facility] Hep B, Adol or Pedi 2002 Completed Unive rsity of Dosage 00:00:00 [facility] DTAP 2002 Completed [facility] of 00:00:00 [facility] HIB 4 Dose Schedule 2002 Completed Unive rsity of 00:00:00 [facility] Hep B, Adol or Pedi 2002 Completed Unive rsity of Dosage 00:00:00 [facility] DTAP 2002 Completed [facility] of 00:00:00 [facility] HIB 4 Dose Schedule 2002 Completed Unive rsity of 00:00:00 [facility] Hep B, Adol or Pedi 2002 Completed Unive rsity of Dosage 00:00:00 [facility] DTAP 2002 Completed [facility] of 00:00:00 [facility] HIB 4 Dose Schedule 2002 Completed Unive rsity of 00:00:00 [facility] Hep B, Adol or Pedi 2002 Completed Unive rsity of Dosage 00:00:00 [facility] DTAP 2002 Completed [facility] of 00:00:00 [facility] HIB 4 Dose Schedule 2002 Completed Unive rsity of 00:00:00 [facility] Hep B, Adol or Pedi 2002 Completed Unive rsity of Dosage 00:00:00 [facility] DTAP 2002 Completed [facility] of 00:00:00 [facility] HIB 4 Dose Schedule 2002 Completed Unive rsity of 00:00:00 [facility] Hep B, Adol or Pedi 2002 Completed Unive rsity of Dosage 00:00:00 [facility] DTAP 2002 Completed [facility] of 00:00:00 [facility] HIB 4 Dose Schedule 2002 Completed Unive rsity of 00:00:00 [facility] Hep B, Adol or Pedi 2002 Completed Unive rsity of Dosage 00:00:00 [facility] DTAP 2002 Completed [facility] of 00:00:00 [facility] DTAP 2002 Completed [facility] of 00:00:00 [facility] HIB 4 Dose Schedule 2002 Completed Unive rsity of 00:00:00 [facility] Hep B, Adol or Pedi 2002 Completed Unive rsity of Dosage 00:00:00 [facility] HIB 4 Dose Schedule 2002 [...] 2002 Completed Unive rsity of Dosage 00:00:00 [facility] DTAP 2002 Completed [facility] of 00:00:00 [facility] HIB 4 Dose Schedule 2002 Completed Unive rsity of 00:00:00 [facility] Hep B, Adol or Pedi 2002 Completed Unive rsity of Dosage 00:00:00 [facility] DTAP 2002 Completed [facility] of [...] 2002 Completed Unive rsity of Dosage 00:00:00 [facility] HIB 4 Dose Schedule 2002 [...] 2002 Completed Unive rsity of Dosage 00:00:00 [facility] DTAP 2002 Completed [facility] of 00:00:00 [facility] HIB 4 Dose Schedule 2002 Completed [facility]ive rsity of 00:00:00 [facility] Hep B, Adol or Pedi 2002 Completed Unive rsity of Dosage 00:00:00 [facility] DTAP 2002 Completed [facility] of 00:00:00 [facility] HIB 4 Dose Schedule 2002 Completed [facility]ive rsity of 00:00:00 [facility] Hep B, Adol or Pedi 2002 Completed Unive rsity of Dosage 00:00:00 [facility] DTAP 2002 Completed [facility] 00:00:00 [facility] HIB 4 Dose Schedule 2002 Completed [facility]ive rsity of 00:00:00 [facility] Hep B, Adol or Pedi 2002 Completed [facility]ive rsity of Dosage 00:00:00 [facility] DTAP 2002 Completed [facility] 00:00:00 [facility] HIB 4 Dose Schedule 2002 Completed [facility]ive [facility]ity of 00:00:00 [facility] Hep B, Adol or Pedi 2002 Completed [facility]ive [facility]ity of Dosage 00:00:00 [facility] DTAP 2002 Completed [facility] 00:00:00 [facility] DTAP 2002 Completed [facility] of 00:00:00 [facility] HIB 4 Dose Schedule 2002 Completed [facility]ive [facility]ity of 00:00:00 [facility] Hep B, Adol or Pedi 2002 Completed [facility] of Dosage 00:00:00 [facility] HIB 4 Dose Schedule 2002 Completed [facility]ive [facility]ity of 00:00:00 [facility] DTAP 2002 Completed [facility] 00:00:00 [facility] HIB 4 Dose Schedule 2002 Completed [facility]ity of 00:00:00 [facility] Hep B, Adol or Pedi 2002 Completed [facility]ive [facility]ity of Dosage 00:00:00 [facility] Hep B, Adol or Pedi 2002 Completed [facility]ity of Dosage 00:00:00 [facility] DTAP 2002 Completed [facility] 00:00:00 [facility] HIB 4 Dose Schedule 2002 Completed [facility] of 00:00:00 [facility] Hep B, Adol or Pedi 2002 Completed [facility] of Dosage 00:00:00 [facility] DTAP 2002 Completed [facility] 00:00:00 [facility] HIB 4 Dose Schedule 2002 Completed [facility] of 00:00:00 [facility] Hep B, Adol or Pedi 2002 Completed [facility] of Dosage 00:00:00 [facility] DTAP 2002 Completed [facility] 00:00:00 [facility] HIB 4 Dose Schedule 2002 Completed [facility] of 00:00:00 [facility] Hep B, Adol or Pedi 2002 Completed [facility] of Dosage 00:00:00 [facility] DTAP 2002 Completed [facility] 00:00:00 [facility] HIB 4 Dose Schedule 2002 Completed [facility] 00:[facility]:00 [facility] Hep B, Adol or Pedi 2002 Completed [facility] Dosage 00:00:00 [facility] DTAP 2002 Completed [facility] 00:00:00 [facility] HIB 4 Dose Schedule 2002 Completed [facility] 00[facility]00:00 [facility] Hep B, Adol or Pedi 2002 Completed [facility] Dosage 00:00:00 [facility] DTAP 2002 Completed [facility] 00:00:00 [facility] HIB 4 Dose Schedule 2002 Completed [facility] 00:00:00 [facility] Hep B, Adol or Pedi 2002 Completed [facility] Dosage 00:00:00 [facility] DTAP 2002 Completed [facility] 00:00:00 [facility] DTAP 2002 Completed [facility] 00:00:00 [facility] HIB 4 Dose Schedule 2002 Completed [facility] 00:00:00 [facility] Hep B, Adol or Pedi 2002 Completed [facility] Dosage 00:00:00 [facility] HIB 4 Dose Schedule 2002 Completed [facility] 00:00:00 [facility] Hep B, Adol or Pedi 2002 Completed [facility] Dosage 00:00:00 [facility] DTAP 2002 Completed [facility] 00:00:00 [facility] HIB 4 Dose Schedule 2002 Completed [facility] 00:00:00 [facility] Hep B, Adol or Pedi 2002 Completed [facility] Dosage 00:00:00 [facility] DTAP 2002 Completed [facility] 00:00:00 [facility] HIB 4 Dose Schedule 2002 Completed [facility] 00:00:00 [facility] Hep B, Adol or Pedi 2002 Completed [facility] Dosage 00:00:00 [facility] DTAP 2002 Completed [facility] 00:00:00 [facility] DTAP 2002 Completed [facility] 00:00:00 [facility] HIB 4 Dose Schedule 2002 Completed [facility] 00:00:00 [facility] Hep B, Adol or Pedi 2002 Completed [facility] Dosage 00:00:00 [facility] HIB 4 Dose Schedule 2002 Completed [facility] 00:00:00 [facility] DTAP 2002 Completed [facility] 00:00:00 [facility] HIB 4 Dose Schedule 2002 Completed [facility] 00:00:00 [facility] Hep B, Adol or Pedi 2002 Completed [facility] Dosage 00:00:00 [facility] DTAP 2002 Completed [facility] 00:00:00 [facility] HIB 4 Dose Schedule 2002 Completed [facility] 00:00:00 [facility] Hep B, Adol or Pedi 2002 Completed [facility] Dosage 00:00:00 [facility] Hep B, Adol or Pedi 2002 Completed [facility] Dosage 00:00:00 [facility] DTAP 2002 Completed [facility] 00:00:00 [facility] HIB 4 Dose Schedule 2002 Completed [facility] 00:00:00 [facility] Hep B, Adol or Pedi 2002 Completed [facility] Dosage 00:00:00 [facility] DTAP 2002 Completed [facility] 00:00:00 [facility] HIB 4 Dose Schedule 2002 Completed [facility] 00:00:00 [facility] Hep B, Adol or Pedi 2002 Completed [facility] Dosage 00:00:00 [facility] DTAP 2002 Completed [facility] 00:00:00 [facility] HIB 4 Dose Schedule 2002 Completed [facility] 00:00:00 [facility] Hep B, Adol or Pedi 2002 Completed [facility] Dosage 00:00:00 [facility] DTAP 2002 Completed [facility] 00:00:00 [facility] HIB 4 Dose Schedule 2002 Completed [facility] 00:00:00 [facility] Hep B, Adol or Pedi 2002 Completed [facility] Dosage 00:00:00 [facility] DTAP 2002 Completed [facility] 00:00:00 [facility] HIB 4 Dose Schedule 2002 Completed [facility] 00:00:00 [facility] Hep B, Adol or Pedi 2002 Completed [facility] Dosage 00:00:00 [facility] DTAP 2002 Completed [facility] 00:00:00 [facility] HIB 4 Dose Schedule 2002 Completed [facility] 00:00:00 [facility] Hep B, Adol or Pedi 2002 Completed [facility] Dosage 00:00:00 [facility] DTAP 2002 Completed [facility] 00:00:00 [facility] HIB 4 Dose Schedule 2002 Completed [facility] 00:00:00 [facility] Hep B, Adol or Pedi 2002 Completed [facility] Dosage 00:00:00 [facility] DTAP 2002 Completed [facility] 00:00:00 [facility] HIB 4 Dose Schedule 2002 Completed [facility] 00:00:00 [facility] Hep B, Adol or Pedi 2002 Completed [facility] Dosage 00:00:00 [facility] DTAP 2002 Completed [facility] 00:00:00 [facility] DTAP 2002 Completed [facility] 00:00:00 [facility] HIB 4 Dose Schedule 2002 Completed [facility] 00:00:00 [facility] Hep B, Adol or Pedi 2002 Completed [facility] Dosage 00:00:00 [facility] DTAP 2002 Completed [facility] 00:00:00 [facility] HIB 4 Dose Schedule 2002 Completed [facility] 00:00:00 [facility] HIB 4 Dose Schedule 2002 Completed [facility] 00:00:00 [facility] Hep B, Adol or Pedi 2002 Completed [facility] Dosage 00:00:00 [facility] DTAP 2002 Completed [facility] 00:00:00 [facility] HIB 4 Dose Schedule 2002 Completed [facility] 00:00:00 [facility] Polio (IPV/OPV) 2002 Completed [facility] 00:00:00 [facility] DTAP 2002 Completed [facility] 00:00:00 [facility] HIB 4 Dose Schedule 2002 Completed [facility] 00:00:00 [facility] Polio (IPV/OPV) 2002 Completed [facility] 00:00:00 [facility] Polio (IPV/OPV) 2002 Completed [facility] 00[facility]00:00 [facility] DTAP 2002 Completed [facility] 00:00:00 [facility] HIB 4 Dose Schedule 2002 Completed [facility] 00:00:00 [facility] Polio (IPV/OPV) 2002 Completed [facility] 00:00:00 [facility] DTAP 2002 Completed [facility] 00:00:00 [facility] HIB 4 Dose Schedule 2002 Completed [facility] 00:00:00 [facility] Polio (IPV/OPV) 2002 Completed [facility] 00:00:00 [facility] DTAP 2002 Completed [facility] 00:00:00 [facility] HIB 4 Dose Schedule 2002 Completed [facility] 00:00:00 [facility] Polio (IPV/OPV) 2002 Completed [facility] 00:00:00 [facility] DTAP 2002 Completed [facility] 00[facility]00:00 [facility] HIB 4 Dose Schedule 2002 Completed [facility] 00:00:00 [facility] Polio (IPV/OPV) 2002 Completed [facility] 00:00:00 [facility] DTAP 2002 Completed [facility] 00[facility]00:00 [facility] HIB 4 Dose Schedule 2002 Completed [facility] 00:00:00 [facility] Polio (IPV/OPV) 2002 Completed [facility] 00:00:00 [facility] DTAP 2002 Completed [facility] 00:00:00 [facility] HIB 4 Dose Schedule 2002 Completed [facility] 00:00:00 [facility] DTAP 2002 Completed [facility] 00:00:00 [facility] Polio (IPV/OPV) 2002 Completed [facility] 00:00:00 [facility] DTAP 2002 Completed [facility] 00:00:00 [facility] HIB 4 Dose Schedule 2002 Completed [facility] 00:00:00 [facility] HIB 4 Dose Schedule 2002 Completed [facility] 00:00:00 [facility] Polio (IPV/OPV) 2002 Completed [facility] 00:00:00 [facility] DTAP 2002 Completed [facility] 00:00:00 [facility] HIB 4 Dose Schedule 2002 Completed [facility] 00:00:00 [facility] Polio (IPV/OPV) 2002 Completed [facility] 00:00:00 [facility] DTAP 2002 Completed [facility] 00:00:00 [facility] HIB 4 Dose Schedule 2002 Completed [facility] 00:00:00 [facility] Polio (IPV/OPV) 2002 Completed [facility] 00:00:00 [facility] DTAP 2002 Completed [facility] 00[facility]00:00 [facility] HIB 4 Dose Schedule 2002 Completed [facility] 00:00:00 [facility] Polio (IPV/OPV) 2002 Completed [facility] 00:00:00 [facility] Polio (IPV/OPV) 2002 Completed [facility] 00:00:00 [facility] DTAP 2002 Completed [facility] 00:00:00 [facility] HIB 4 Dose Schedule 2002 Completed [facility] 00:00:00 [facility] Polio (IPV/OPV) 2002 Completed [facility] 00:00:00 [facility] DTAP 2002 Completed [facility] 00:00:00 [facility] HIB 4 Dose Schedule 2002 Completed [facility] 00[facility]00:00 [facility] Polio (IPV/OPV) 2002 Completed [facility] 00:00:00 [facility] DTAP 2002 Completed [facility] 00:00:00 [facility] HIB 4 Dose Schedule 2002 Completed [facility] 00:00:00 [facility] Polio (IPV/OPV) 2002 Completed [facility] 00:00:00 [facility] DTAP 2002 Completed [facility] 00:00:00 [facility] HIB 4 Dose Schedule 2002 Completed [facility] 00:00:00 [facility] Polio (IPV/OPV) 2002 Completed [facility] 00:00:00 [facility] DTAP 2002 Completed [facility] 00:00:00 [facility] HIB 4 Dose Schedule 2002 Completed [facility] 00:00:00 [facility] Polio (IPV/OPV) 2002 Completed [facility] 00:00:00 [facility] DTAP 2002 Completed [facility] 00:00:00 [facility] HIB 4 Dose Schedule 2002 Completed [facility] 00:00:00 [facility] Polio (IPV/OPV) 2002 Completed [facility] 00:00:00 [facility] DTAP 2002 Completed [facility] 00:00:00 [facility] DTAP 2002 Completed [facility] 00:00:00 [facility] HIB 4 Dose Schedule 2002 Completed [facility] 00:00:00 [facility] Polio (IPV/OPV) 2002 Completed [facility] 00:00:00 [facility] HIB 4 Dose Schedule 2002 Completed [facility] 00:00:00 [facility] DTAP 2002 Completed [facility] 00:00:00 [facility] HIB 4 Dose Schedule 2002 Completed [facility] 00:00:00 [facility] Polio (IPV/OPV) 2002 Completed [facility] 00:00:00 [facility] DTAP 2002 Completed [facility] 00:00:00 [facility] HIB 4 Dose Schedule 2002 Completed [facility] 00:00:00 [facility] Polio (IPV/OPV) 2002 Completed [facility] 00:00:00 [facility] DTAP 2002 Completed [facility] 00:00:00 [facility] HIB 4 Dose Schedule 2002 Completed [facility] 00:00:00 [facility] Polio (IPV/OPV) 2002 Completed [facility] 00:00:00 [facility] Polio (IPV/OPV) 2002 Completed [facility] 00:00:00 [facility] DTAP 2002 Completed [facility] 00:00:00 [facility] HIB 4 Dose Schedule 2002 Completed [facility] 00:00:00 [facility] Polio (IPV/OPV) 2002 Completed [facility] 00:00:00 [facility] DTAP 2002 Completed [facility] 00:00:00 [facility] HIB 4 Dose Schedule 2002 Completed [facility] 00:00:00 [facility] Polio (IPV/OPV) 2002 Completed [facility] 00:00:00 [facility] DTAP 2002 Completed [facility] 00:00:00 [facility] HIB 4 Dose Schedule 2002 Completed [facility] 00:00:00 [facility] Polio (IPV/OPV) 2002 Completed [facility] 00:00:00 [facility] DTAP 2002 Completed [facility] 00[facility]00:00 [facility] HIB 4 Dose Schedule 2002 Completed [facility] 00:00:00 [facility] Polio (IPV/OPV) 2002 Completed [facility] 00:00:00 [facility] DTAP 2002 Completed [facility] 00:00:00 [facility] HIB 4 Dose Schedule 2002 Completed [facility] 00:00:00 [facility] DTAP 2002 Completed [facility] 00:00:00 [facility] Polio (IPV/OPV) 2002 Completed [facility] 00:00:00 [facility] DTAP 2002 Completed [facility] 00:00:00 [facility] HIB 4 Dose Schedule 2002 Completed [facility] 00:00:00 [facility] HIB 4 Dose Schedule 2002 Completed [facility] 00:00:00 [facility] Polio (IPV/OPV) 2002 Completed [facility] 00:00:00 [facility] DTAP 2002 Completed [facility] 00:00:00 [facility] HIB 4 Dose Schedule 2002 Completed [facility] 00:00:00 [facility] Polio (IPV/OPV) 2002 Completed [facility] 00:00:00 [facility] DTAP 2002 Completed [facility] 00:00:00 [facility] HIB 4 Dose Schedule 2002 Completed [facility] 00:00:00 [facility] Polio (IPV/OPV) 2002 Completed [facility] 00:00:00 [facility] Polio (IPV/OPV) 2002 Completed [facility] 00:00:00 [facility] DTAP 2002 Completed [facility] 00:00:00 [facility] HIB 4 Dose Schedule 2002 Completed [facility] 00:00:00 [facility] Polio (IPV/OPV) 2002 Completed [facility] 00:00:00 [facility] DTAP 2002 Completed [facility] 00:00:00 [facility] HIB 4 Dose Schedule 2002 Completed [facility] 00:00:00 [facility] Polio (IPV/OPV) 2002 Completed [facility] 00:00:00 [facility] DTAP 2002 Completed [facility] 00:00:00 [facility] HIB 4 Dose Schedule 2002 Completed [facility] 00:00:00 [facility] Polio (IPV/OPV) 2002 Completed [facility] 00:00:00 [facility] DTAP 2002 Completed [facility] 00:00:00 [facility] HIB 4 Dose Schedule 2002 Completed [facility] 00:00:00 [facility] Polio (IPV/OPV) 2002 Completed [facility] 00:00:00 [facility] DTAP 2002 Completed [facility] 00:00:00 [facility] HIB 4 Dose Schedule 2002 Completed [facility] 00:00:00 [facility] Polio (IPV/OPV) 2002 Completed [facility] 00:00:00 [facility] DTAP 2002 Completed [facility] 00:00:00 [facility] HIB 4 Dose Schedule 2002 [...] (IPV/OPV) 2002 Completed [facility] 00:00:00 [facility] DTAP 2002 Completed [facility] 00:00:00 [facility] HIB 4 Dose Schedule 2002 Completed [facility] 00:00:00 [facility] Polio (IPV/OPV) 2002 Completed [facility] 00:00:00 [facility] DTAP 2002 Completed [facility] 00:00:00 [facility] HIB 4 Dose Schedule 2002 Completed [facility] 00:00:00 [facility] Polio (IPV/OPV) 2002 Completed [facility] 00:00:00 [facility] Polio (IPV/OPV) 2002 Completed [facility] 00:00:00 [facility] DTAP 2002 Completed [facility] 00:00:00 [facility] HIB 4 Dose Schedule 2002 Completed [facility] 00:00:00 [facility] Polio (IPV/OPV) 2002 Completed [facility] 00:00:00 [facility] DTAP 2002 Completed [facility] 00:00:00 [facility] HIB 4 Dose Schedule 2002 Completed [facility] 00:00:00 [facility] Polio (IPV/OPV) 2002 Completed [facility] 00:00:00 [facility] DTAP 2002 Completed [facility] 00:00:00 [facility] DTAP 2002 Completed [facility] 00:00:00 [facility] HIB 4 Dose Schedule 2002 Completed [facility] 00:00:00 [facility] Polio (IPV/OPV) 2002 Completed [facility] 00:00:00 [facility] HIB 4 Dose Schedule 2002 Completed [facility] 00:00:00 [facility] DTAP 2002 Completed [facility] 00:00:00 [facility] HIB 4 Dose Schedule 2002 Completed [facility] 00:00:00 [facility] Polio (IPV/OPV) 2002 Completed [facility] 00:00:00 [facility] DTAP 2002 Completed [facility] 00:00:00 [facility] HIB 4 Dose Schedule 2002 Completed [facility] 00:00:00 [facility] Polio (IPV/OPV) 2002 Completed [facility] 00:00:00 [facility] DTAP 2002 Completed [facility] 00:00:00 [facility] HIB 4 Dose Schedule 2002 Completed [facility] 00:00:00 [facility] Polio (IPV/OPV) 2002 Completed [facility] 00:00:00 [facility] Polio (IPV/OPV) 2002 Completed [facility] 00[facility]00:00 [facility] DTAP 2002 Completed [facility] 00:00:00 [facility] HIB 4 Dose Schedule 2002 Completed [facility] 00:00:00 [facility] Polio (IPV/OPV) 2002 Completed [facility] 00:00:00 [facility] DTAP 2002 Completed [facility] 00:00:00 [facility] HIB 4 Dose Schedule 2002 Completed [facility] 00:00:00 [facility] Polio (IPV/OPV) 2002 Completed [facility] 00:00:00 [facility] DTAP 2002 Completed [facility] 00:00:00 [facility] HIB 4 Dose Schedule 2002 Completed [facility] 00:00:00 [facility] Polio (IPV/OPV) 2002 Completed [facility] 00:00:00 [facility] DTAP 2002 Completed [facility] 00:00:00 [facility] HIB 4 Dose Schedule 2002 Completed [facility] 00:00:00 [facility] DTAP 2002 Completed [facility] 00:00:00 [facility] Polio (IPV/OPV) 2002 Completed [facility] 00:00:00 [facility] DTAP 2002 Completed [facility] 00:00:00 [facility] HIB 4 Dose Schedule 2002 Completed [facility] 00:00:00 [facility] HIB 4 Dose Schedule 2002 Completed [facility] 00:00:00 [facility] Polio (IPV/OPV) 2002 Completed [facility] 00:00:00 [facility] DTAP 2002 Completed [facility] 00:00:00 [facility] HIB 4 Dose Schedule 2002 Completed [facility] 00:00:00 [facility] Polio (IPV/OPV) 2002 Completed [facility] 00:00:00 [facility] DTAP 2002 Completed [facility] 00:00:00 [facility] HIB 4 Dose Schedule 2002 Completed [facility] 00:00:00 [facility] Polio (IPV/OPV) 2002 Completed [facility] 00[facility]00:00 [facility] DTAP 2002 Completed [facility] 00:00:00 [facility] Polio (IPV/OPV) 2002 Completed [facility] 00:00:00 [facility] HIB 4 Dose Schedule 2002 Completed [facility] 00:00:00 [facility] Polio (IPV/OPV) 2002 Completed [facility] 00:00:00 [facility] DTAP 2002 Completed [facility] 00:00:00 [facility] HIB 4 Dose Schedule 2002 Completed [facility] 00:00:00 [facility] Polio (IPV/OPV) 2002 Completed [facility] 00:00:00 [facility] DTAP 2002 Completed [facility] 00:00:00 [facility] HIB 4 Dose Schedule 2002 Completed [facility] 00:00:00 [facility] Polio (IPV/OPV) 2002 Completed [facility] 00:00:00 [facility] DTAP 2002 Completed [facility] 00:00:00 [facility] HIB 4 Dose Schedule 2002 Completed [facility] 00:00:00 [facility] Polio (IPV/OPV) 2002 Completed [facility] 00:00:00 [facility] DTAP 2002 Completed [facility] 00:00:00 [facility] HIB 4 Dose Schedule 2002 Completed [facility] 00:00:00 [facility] Polio (IPV/OPV) 2002 Completed [facility] 00:00:00 [facility] DTAP 2002 Completed [facility] 00:00:00 [facility] DTAP 2002 Completed [facility] 00:00:00 [facility] HIB 4 Dose Schedule 2002 Completed [facility] 00:00:00 [facility] Polio (IPV/OPV) 2002 Completed [facility] 00:00:00 [facility] HIB 4 Dose Schedule 2002 Completed [facility] 00:00:00 [facility] Polio (IPV/OPV) 2002 Completed [facility] 00:00:00 [facility] DTAP 2002 Completed [facility] 00:00:00 [facility] HIB 4 Dose Schedule 2002 Completed [facility] 00:00:00 [facility] Polio (IPV/OPV) 2002 Completed [facility] 00:00:00 [facility] DTAP 2002 Completed [facility] 00:00:00 [facility] HIB 4 Dose Schedule 2002 Completed [facility] 00:00:00 [facility] DTAP 2002 Completed [facility] 00:00:00 [facility] Polio (IPV/OPV) 2002 Completed [facility] 00:00:00 [facility] DTAP 2002 Completed [facility] 00:00:00 [facility] HIB 4 Dose Schedule 2002 Completed [facility] 00:00:00 [facility] Polio (IPV/OPV) 2002 Completed [facility] 00:00:00 [facility] HIB 4 Dose Schedule 2002 Completed [facility] 00:00:00 [facility] DTAP 2002 Completed [facility] 00:00:00 [facility] HIB 4 Dose Schedule 2002 Completed [facility] 00:00:00 [facility] Polio (IPV/OPV) 2002 Completed [facility] 00:00:00 [facility] DTAP 2002 Completed [facility] 00:00:00 [facility] HIB 4 Dose Schedule 2002 Completed [facility] 00:00:00 [facility] Polio (IPV/OPV) 2002 Completed [facility] 00:00:00 [facility] DTAP 2002 Completed [facility] 00[facility]00:00 [facility] HIB 4 Dose Schedule 2002 Completed [facility] 00:00:00 [facility] Polio (IPV/OPV) 2002 Completed [facility] 00:00:00 [facility] Polio (IPV/OPV) 2002 Completed [facility] 00:00:00 [facility] DTAP 2002 Completed [facility] 00:00:00 [facility] HIB 4 Dose Schedule 2002 Completed [facility] 00:00:00 [facility] Polio (IPV/OPV) 2002 Completed [facility] 00:00:00 [facility] DTAP 2002 Completed [facility] 00:00:00 [facility] HIB 4 Dose Schedule 2002 Completed [facility] 00:00:00 [facility] Polio (IPV/OPV) 2002 Completed [facility] 00:00:00 [facility] DTAP 2002 Completed [facility] 00:00:00 [facility] HIB 4 Dose Schedule 2002 Completed [facility] 00:00:00 [facility] Polio (IPV/OPV) 2002 Completed [facility] 00:00:00 [facility] DTAP 2002 Completed [facility] 00:00:00 [facility] HIB 4 Dose Schedule 2002 Completed [facility] 00:00:00 [facility] Polio (IPV/OPV) 2002 Completed [facility] 00:00:00 [facility] DTAP 2002 Completed [facility] 00:00:00 [facility] HIB 4 Dose Schedule 2002 Completed [facility] 00:00:00 [facility] Polio (IPV/OPV) 2002 Completed [facility] 00:00:00 [facility] DTAP 2002 Completed [facility] 00[facility]00:00 [facility] HIB 4 Dose Schedule 2002 Completed [facility] 00:00:00 [facility] Polio (IPV/OPV) 2002 Completed [facility] 00:00:00 [facility] DTAP 2002 Completed [facility] 00[facility]00:00 [facility] HIB 4 Dose Schedule 2002 Completed [facility] 00:00:00 [facility] Polio (IPV/OPV) 2002 Completed [facility] 00:00:00 [facility] DTAP 2002 Completed [facility] 00[facility]00:00 [facility] DTAP 2002 Completed [facility] 00[facility]00:00 [facility] HIB 4 Dose Schedule 2002 Completed [facility] 00:00:00 [facility] Polio (IPV/OPV) 2002 Completed [facility] 00:00:00 [facility] HIB 4 Dose Schedule 2002 Completed [facility] 00:00:00 [facility] DTAP 2002 Completed [facility] 00:00:00 [facility] HIB 4 Dose Schedule 2002 Completed [facility] 00:00:00 [facility] Polio (IPV/OPV) 2002 Completed [facility] 00:00:00 [facility] DTAP 2002 Completed [facility] 00[facility]00 [facility] Hep B, Adol or Pedi 2002 Completed [facility] Dosage 00:00:00 [facility] Hep B, Adol or Pedi 2002 Completed [facility] Dosage 00:00:00 [facility] Polio (IPV/OPV) 2002 Completed [facility] 00:00:00 [facility] DTAP 2002 Completed [facility] 00:00:00 [facility] HIB 4 Dose Schedule 2002 Completed [facility] 00:00:00 [facility] Hep B, Adol or Pedi 2002 Completed [facility] Dosage 00:00:00 [facility] Polio (IPV/OPV) 2002 Completed [facility] 00:00:00 [facility] Polio (IPV/OPV) 2002 Completed [facility] 00:00:00 [facility] DTAP 2002 Completed [facility] 00:00:00 [facility] HIB 4 Dose Schedule 2002 Completed [facility] 00:00:00 [facility] Hep B, Adol or Pedi 2002 Completed [facility] Dosage 00:00:00 [facility] Polio (IPV/OPV) 2002 Completed [facility] 00:00:00 [facility] DTAP 2002 Completed [facility] 00:00:00 [facility] HIB 4 Dose Schedule 2002 Completed [facility] 00:00:00 [facility] Hep B, Adol or Pedi 2002 Completed [facility] Dosage 00:00:00 [facility] Polio (IPV/OPV) 2002 Completed [facility] 00:00:00 [facility] DTAP 2002 Completed [facility] 00:00:00 [facility] HIB 4 Dose Schedule 2002 Completed [facility] 00:00:00 [facility] Hep B, Adol or Pedi 2002 Completed [facility] Dosage 00:00:00 [facility] Polio (IPV/OPV) 2002 Completed [facility] 00:00:00 [facility] DTAP 2002 Completed [facility] 00:00:00 [facility] HIB 4 Dose Schedule 2002 Completed [facility] 00:00:00 [facility] Hep B, Adol or Pedi 2002 Completed [facility] Dosage 00:00:00 [facility] Polio (IPV/OPV) 2002 Completed [facility] 00:00:00 [facility] DTAP 2002 Completed [facility] 00:00:00 [facility] HIB 4 Dose Schedule 2002 Completed [facility] 00:00:00 [facility] Hep B, Adol or Pedi 2002 Completed [facility] Dosage 00:00:00 [facility] Polio (IPV/OPV) 2002 Completed [facility] 00:00:00 [facility] DTAP 2002 Completed [facility] 00:00:00 [facility] DTAP 2002 Completed [facility] 00:00:00 [facility] HIB 4 Dose Schedule 2002 Completed [facility] 00:00:00 [facility] Hep B, Adol or Pedi 2002 Completed [facility] Dosage 00:00:00 [facility] Polio (IPV/OPV) 2002 Completed [facility] 00:00:00 [facility] DTAP 2002 Completed [facility] 00:00:00 [facility] HIB 4 Dose Schedule 2002 Completed [facility] 00:00:00 [facility] HIB 4 Dose Schedule 2002 Completed [facility] 00:00:00 [facility] Hep B, Adol or Pedi 2002 Completed [facility] Dosage 00:00:00 [facility] Polio (IPV/OPV) 2002 Completed [facility] 00:00:00 [facility] DTAP 2002 Completed [facility] 00:00:00 [facility] HIB 4 Dose Schedule 2002 Completed [facility] 00:00:00 [facility] Hep B, Adol or Pedi 2002 Completed [facility] Dosage 00:00:00 [facility] Polio (IPV/OPV) 2002 Completed [facility] 00:00:00 [facility] Hep B, Adol or Pedi 2002 Completed [facility] Dosage 00:00:00 [facility] DTAP 2002 Completed [facility] 00:00:00 [facility] HIB 4 Dose Schedule 2002 Completed [facility] 00:00:00 [facility] Hep B, Adol or Pedi 2002 Completed [facility] Dosage 00:00:00 [facility] Polio (IPV/OPV) 2002 Completed [facility] 00:00:00 [facility] Polio (IPV/OPV) 2002 Completed [facility] 00:00:00 [facility] DTAP 2002 Completed [facility] 00:00:00 [facility] HIB 4 Dose Schedule 2002 Completed [facility] 00:00:00 [facility] Hep B, Adol or Pedi 2002 Completed [facility] Dosage 00:00:00 [facility] Polio (IPV/OPV) 2002 Completed [facility] 00:00:00 [facility] DTAP 2002 Completed [facility] 00:00:00 [facility] HIB 4 Dose Schedule 2002 Completed [facility] 00:00:00 [facility] Hep B, Adol or Pedi 2002 Completed [facility] Dosage 00:00:00 [facility] Polio (IPV/OPV) 2002 Completed [facility] 00:00:00 [facility] DTAP 2002 Completed [facility] 00:00:00 [facility] HIB 4 Dose Schedule 2002 Completed [facility] 00:00:00 [facility] Hep B, Adol or Pedi 2002 Completed [facility] Dosage 00:00:00 [facility] Polio (IPV/OPV) 2002 Completed [facility] 00:00:00 [facility] DTAP 2002 Completed [facility] 00:00:00 [facility] HIB 4 Dose Schedule 2002 Completed [facility] 00:00:00 [facility] Hep B, Adol or Pedi 2002 Completed [facility] Dosage 00:00:00 [facility] Polio (IPV/OPV) 2002 Completed [facility] 00:00:00 [facility] DTAP 2002 Completed [facility] 00:00:00 [facility] HIB 4 Dose Schedule 2002 Completed [facility] 00:00:00 [facility] Hep B, Adol or Pedi 2002 Completed [facility] Dosage 00:00:00 [facility] Polio (IPV/OPV) 2002 Completed [facility] 00:00:00 [facility] DTAP 2002 Completed [facility] 00:00:00 [facility] HIB 4 Dose Schedule 2002 Completed [facility] 00:00:00 [facility] Hep B, Adol or Pedi 2002 Completed [facility] Dosage 00:00:00 [facility] Polio (IPV/OPV) 2002 Completed [facility] 00:00:00 [facility] DTAP 2002 Completed [facility] 00:00:00 [facility] HIB 4 Dose Schedule 2002 Completed [facility] 00:00:00 [facility] Hep B, Adol or Pedi 2002 Completed [facility] Dosage 00:00:00 [facility] Polio (IPV/OPV) 2002 Completed [facility] 00:00:00 [facility] DTAP 2002 Completed [facility] 00:00:00 [facility] DTAP 2002 Completed [facility] 00:00:00 [facility] HIB 4 Dose Schedule 2002 Completed [facility] 00:00:00 [facility] Hep B, Adol or Pedi 2002 Completed [facility] Dosage 00:00:00 [facility] Polio (IPV/OPV) 2002 Completed [facility] 00:00:00 [facility] HIB 4 Dose Schedule 2002 Completed [facility] 00:00:00 [facility] DTAP 2002 Completed [facility] 00:00:00 [facility] HIB 4 Dose Schedule 2002 Completed [facility] 00:00:00 [facility] Hep B, Adol or Pedi 2002 Completed [facility] Dosage 00:00:00 [facility] Polio (IPV/OPV) 2002 Completed [facility] 00:00:00 [facility] DTAP 2002 Completed [facility] 00:00:00 [facility] HIB 4 Dose Schedule 2002 Completed [facility] 00:00:00 [facility] Hep B, Adol or Pedi 2002 Completed [facility] Dosage 00:00:00 [facility] Polio (IPV/OPV) 2002 Completed [facility] 00:00:00 [facility] Hep B, Adol or Pedi 2002 Completed [facility] Dosage 00:00:00 [facility] DTAP 2002 Completed [facility] 00:00:00 [facility] HIB 4 Dose Schedule 2002 Completed [facility] 00:00:00 [facility] Hep B, Adol or Pedi 2002 Completed [facility] Dosage 00:00:00 [facility] Polio (IPV/OPV) 2002 Completed [facility] 00:00:00 [facility] Polio (IPV/OPV) 2002 Completed [facility] 00:00:00 [facility] DTAP 2002 Completed [facility] 00:00:00 [facility] HIB 4 Dose Schedule 2002 Completed [facility] 00:00:00 [facility] Hep B, Adol or Pedi 2002 Completed [facility] Dosage 00:00:00 [facility] Polio (IPV/OPV) 2002 Completed [facility] 00:00:00 [facility] DTAP 2002 Completed [facility] 00:00:00 [facility] HIB 4 Dose Schedule 2002 Completed [facility] 00:00:00 [facility] Hep B, Adol or Pedi 2002 Completed [facility] Dosage 00:00:00 [facility] Polio (IPV/OPV) 2002 Completed [facility] 00:00:00 [facility] DTAP 2002 Completed [facility] 00:00:00 [facility] HIB 4 Dose Schedule 2002 Completed [facility] 00:00:00 [facility] Hep B, Adol or Pedi 2002 Completed [facility] Dosage 00:00:00 [facility] Polio (IPV/OPV) 2002 Completed [facility] 00:00:00 [facility] DTAP 2002 Completed [facility] 00:00:00 [facility] HIB 4 Dose Schedule 2002 Completed [facility] 00:00:00 [facility] Hep B, Adol or Pedi 2002 Completed [facility] Dosage 00:00:00 [facility] Polio (IPV/OPV) 2002 Completed [facility] 00:00:00 [facility] DTAP 2002 Completed [facility] 00:00:00 [facility] HIB 4 Dose Schedule 2002 Completed [facility] 00:00:00 [facility] DTAP 2002 Completed [facility] 00:00:00 [facility] Hep B, Adol or Pedi 2002 Completed [facility] Dosage 00:00:00 [facility] Polio (IPV/OPV) 2002 Completed [facility] 00:00:00 [facility] HIB 4 Dose Schedule 2002 Completed [facility] 00:00:00 [facility] DTAP 2002 Completed [facility] 00:00:00 [facility] HIB 4 Dose Schedule 2002 Completed [facility] 00:00:00 [facility] Hep B, Adol or Pedi 2002 Completed [facility] Dosage 00:00:00 [facility] Polio (IPV/OPV) 2002 Completed [facility] 00:00:00 [facility] DTAP 2002 Completed [facility] 00:00:00 [facility] HIB 4 Dose Schedule 2002 Completed [facility] 00:00:00 [facility] Hep B, Adol or Pedi 2002 Completed [facility] Dosage 00:00:00 [facility] Polio (IPV/OPV) 2002 Completed [facility] 00:00:00 [facility] Hep B, Adol or Pedi 2002 Completed [facility] Dosage 00:00:00 [facility] DTAP 2002 Completed [facility] 00:00:00 [facility] HIB 4 Dose Schedule 2002 Completed [facility] 00:00:00 [facility] Hep B, Adol or Pedi 2002 Completed [facility] Dosage 00:00:00 [facility] Polio (IPV/OPV) 2002 Completed [facility] 00:00:00 [facility] Polio (IPV/OPV) 2002 Completed [facility] 00:00:00 [facility] DTAP 2002 Completed [facility] 00:00:00 [facility] HIB 4 Dose Schedule 2002 Completed [facility] 00:00:00 [facility] Hep B, Adol or Pedi 2002 Completed [facility] Dosage 00:00:00 [facility] Polio (IPV/OPV) 2002 Completed [facility] 00:00:00 [facility] DTAP 2002 Completed [facility] 00:00:00 [facility] HIB 4 Dose Schedule 2002 Completed [facility] 00:00:00 [facility] Hep B, Adol or Pedi 2002 Completed [facility] Dosage 00:00:00 [facility] Polio (IPV/OPV) 2002 Completed [facility] 00:00:00 [facility] DTAP 2002 Completed [facility] 00:00:00 [facility] HIB 4 Dose Schedule 2002 Completed [facility] 00:00:00 [facility] Hep B, Adol or Pedi 2002 Completed [facility] Dosage 00:00:00 [facility] Polio (IPV/OPV) 2002 Completed [facility] 00:00:00 [facility] DTAP 2002 Completed [facility] 00:00:00 [facility] HIB 4 Dose Schedule 2002 Completed [facility] 00:00:00 [facility] Hep B, Adol or Pedi 2002 Completed [facility] Dosage 00:00:00 [facility] Polio (IPV/OPV) 2002 Completed [facility] 00:00:00 [facility] DTAP 2002 Completed [facility] 00:00:00 [facility] HIB 4 Dose Schedule 2002 Completed [facility] 00:00:00 [facility] Hep B, Adol or Pedi 2002 Completed [facility] Dosage 00:00:00 [facility] Polio (IPV/OPV) 2002 Completed [facility] 00:00:00 [facility] DTAP 2002 Completed [facility] 00:00:00 [facility] DTAP 2002 Completed [facility] 00:00:00 [facility] HIB 4 Dose Schedule 2002 Completed [facility] 00:00:00 [facility] Hep B, Adol or Pedi 2002 Completed [facility] Dosage 00:00:00 [facility] Polio (IPV/OPV) 2002 Completed [facility] 00:00:00 [facility] DTAP 2002 Completed [facility] 00:00:00 [facility] HIB 4 Dose Schedule 2002 Completed [facility] 00:00:00 [facility] HIB 4 Dose Schedule 2002 Completed [facility] 00:00:00 [facility] Hep B, Adol or Pedi 2002 Completed [facility] Dosage 00:00:00 [facility] Polio (IPV/OPV) 2002 Completed [facility] 00:00:00 [facility] DTAP 2002 Completed [facility] 00:00:00 [facility] HIB 4 Dose Schedule 2002 Completed [facility] 00:00:00 [facility] Hep B, Adol or Pedi 2002 Completed [facility] Dosage 00:00:00 [facility] Polio (IPV/OPV) 2002 Completed [facility] 00:00:00 [facility] Hep B, Adol or Pedi 2002 Completed [facility] Dosage 00:00:00 [facility] DTAP 2002 Completed [facility] 00:00:00 [facility] HIB 4 Dose Schedule 2002 Completed [facility] 00:00:00 [facility] Hep B, Adol or Pedi 2002 Completed [facility] Dosage 00:00:00 [facility] Polio (IPV/OPV) 2002 Completed [facility] 00:00:00 [facility] Polio (IPV/OPV) 2002 Completed [facility] 00:00:00 [facility] DTAP 2002 Completed [facility] 00:00:00 [facility] HIB 4 Dose Schedule 2002 Completed [facility] 00:00:00 [facility] Hep B, Adol or Pedi 2002 Completed [facility] Dosage 00:00:00 [facility] Polio (IPV/OPV) 2002 Completed [facility] 00:00:00 [facility] DTAP 2002 Completed [facility] 00:00:00 [facility] HIB 4 Dose Schedule 2002 Completed [facility] 00:00:00 [facility] Hep B, Adol or Pedi 2002 Completed [facility] Dosage 00:00:00 [facility] Polio (IPV/OPV) 2002 Completed [facility] 00:00:00 [facility] DTAP 2002 Completed [facility] 00:00:00 [facility] HIB 4 Dose Schedule 2002 Completed [facility] 00:00:00 [facility] Hep B, Adol or Pedi 2002 Completed [facility] Dosage 00:00:00 [facility] Polio (IPV/OPV) 2002 Completed [facility] 00:00:00 [facility] DTAP 2002 Completed [facility] 00:00:00 [facility] DTAP 2002 Completed [facility] 00:00:00 [facility] HIB 4 Dose Schedule 2002 Completed [facility] 00:00:00 [facility] Hep B, Adol or Pedi 2002 Completed [facility] Dosage 00:00:00 [facility] Polio (IPV/OPV) 2002 Completed [facility] 00:00:00 [facility] HIB 4 Dose Schedule 2002 Completed [facility] 00:00:00 [facility] DTAP 2002 Completed [facility] 00:00:00 [facility] HIB 4 Dose Schedule 2002 Completed [facility] 00:00:00 [facility] Hep B, Adol or Pedi 2002 Completed [facility] Dosage 00:00:00 [facility] Polio (IPV/OPV) 2002 Completed [facility] 00:00:00 [facility] Hep B, Adol or Pedi 2002 Completed [facility] Dosage 00:00:00 [facility] DTAP 2002 Completed [facility] 00:00:00 [facility] HIB 4 Dose Schedule 2002 Completed [facility] 00:00:00 [facility] Hep B, Adol or Pedi 2002 Completed [facility] Dosage 00:00:00 [facility] Polio (IPV/OPV) 2002 Completed [facility] 00:00:00 [facility] Polio (IPV/OPV) 2002 Completed [facility] 00:00:00 [facility] DTAP 2002 Completed [facility] 00:00:00 [facility] HIB 4 Dose Schedule 2002 Completed [facility] 00:00:00 [facility] Hep B, Adol or Pedi 2002 Completed [facility] Dosage 00:00:00 [facility] Polio (IPV/OPV) 2002 Completed [facility] 00:00:00 [facility] DTAP 2002 Completed [facility] 00:00:00 [facility] HIB 4 Dose Schedule 2002 Completed [facility] 00:00:00 [facility] Hep B, Adol or Pedi 2002 Completed [facility] Dosage 00:00:00 [facility] Polio (IPV/OPV) 2002 Completed [facility] 00:00:00 [facility] DTAP 2002 Completed [facility] 00:00:00 [facility] HIB 4 Dose Schedule 2002 Completed [facility] 00:00:00 [facility] Hep B, Adol or Pedi 2002 Completed [facility] Dosage 00:00:00 [facility] Polio (IPV/OPV) 2002 Completed [facility] 00:00:00 [facility] DTAP 2002 Completed [facility] 00:00:00 [facility] HIB 4 Dose Schedule 2002 Completed [facility] 00:00:00 [facility] Hep B, Adol or Pedi 2002 Completed [facility] Dosage 00:00:00 [facility] Polio (IPV/OPV) 2002 Completed [facility] 00:00:00 [facility] DTAP 2002 Completed [facility] 00:00:00 [facility] DTAP 2002 Completed [facility] 00:00:00 [facility] HIB 4 Dose Schedule 2002 Completed [facility] 00:00:00 [facility] Hep B, Adol or Pedi 2002 Completed [facility] Dosage 00:00:00 [facility] Polio (IPV/OPV) 2002 Completed [facility] 00:00:00 [facility] HIB 4 Dose Schedule 2002 Completed [facility] 00:00:00 [facility] DTAP 2002 Completed [facility] 00:00:00 [facility] HIB 4 Dose Schedule 2002 Completed [facility] 00:00:00 [facility] Hep B, Adol or Pedi 2002 Completed [facility] Dosage 00:00:00 [facility] Polio (IPV/OPV) 2002 Completed [facility] 00:00:00 [facility] DTAP 2002 Completed [facility] 00:00:00 [facility] HIB 4 Dose Schedule 2002 Completed [facility] 00:00:00 [facility] Hep B, Adol or Pedi 2002 Completed [facility] Dosage 00:00:00 [facility] Polio (IPV/OPV) 2002 Completed [facility] 00:00:00 [facility] Hep B, Adol or Pedi 2002 Completed [facility] Dosage 00:00:00 [facility] DTAP 2002 Completed [facility] 00:00:00 [facility] HIB 4 Dose Schedule 2002 Completed [facility] 00:00:00 [facility] Hep B, Adol or Pedi 2002 Completed [facility] Dosage 00:00:00 [facility] Polio (IPV/OPV) 2002 Completed [facility] 00:00:00 [facility] Polio (IPV/OPV) 2002 Completed [facility] 00:00:00 [facility] DTAP 2002 Completed [facility] 00:00:00 [facility] HIB 4 Dose Schedule 2002 Completed [facility] 00:00:00 [facility] Hep B, Adol or Pedi 2002 Completed [facility] Dosage 00:00:00 [facility] Polio (IPV/OPV) 2002 Completed [facility] 00:00:00 [facility] DTAP 2002 Completed [facility] 00:00:00 [facility] HIB 4 Dose Schedule 2002 Completed [facility] 00:00:00 [facility] Hep B, Adol or Pedi 2002 Completed [facility] Dosage 00:00:00 [facility] Polio (IPV/OPV) 2002 Completed [facility] 00:00:00 [facility] DTAP 2002 Completed [facility] 00:00:00 [facility] HIB 4 Dose Schedule 2002 Completed [facility] 00:00:00 [facility] Hep B, Adol or Pedi 2002 Completed [facility] Dosage 00:00:00 [facility] Polio (IPV/OPV) 2002 Completed [facility] 00:00:00 [facility] DTAP 2002 Completed [facility] 00:00:00 [facility] HIB 4 Dose Schedule 2002 Completed [facility] 00:00:00 [facility] Hep B, Adol or Pedi 2002 Completed [facility] Dosage 00:00:00 [facility] Polio (IPV/OPV) 2002 Completed [facility] 00:00:00 [facility] DTAP 2002 Completed [facility] 00:00:00 [facility] HIB 4 Dose Schedule 2002 Completed [facility] 00:00:00 [facility] Hep B, Adol or Pedi 2002 Completed [facility] Dosage 00:00:00 [facility] Polio (IPV/OPV) 2002 Completed [facility] 00:00:00 [facility] DTAP 2002 Completed [facility] 00:00:00 [facility] DTAP 2002 Completed [facility] 00:00:00 [facility] HIB 4 Dose Schedule 2002 Completed [facility] 00:00:00 [facility] Hep B, Adol or Pedi 2002 Completed [facility] Dosage 00:00:00 [facility] Polio (IPV/OPV) 2002 Completed [facility] 00:00:00 [facility] HIB 4 Dose Schedule 2002 Completed [facility] 00:00:00 [facility] Hep B, Adol or Pedi 2002 Completed [facility] Dosage 00:00:00 [facility] Polio (IPV/OPV) 2002 Completed [facility] 00:00:00 [facility] DTAP 2002 Completed [facility] 00:00:00 [facility] HIB 4 Dose Schedule 2002 Completed [facility] 00:00:00 [facility] Hep B, Adol or Pedi 2002 Completed [facility] Dosage 00:00:00 [facility] Polio (IPV/OPV) 2002 Completed [facility] 00:00:00 [facility] DTAP 2002 Completed [facility] 00:00:00 [facility] HIB 4 Dose Schedule 2002 Completed [facility] 00:00:00 [facility] DTAP 2002 Completed [facility] 00:00:00 [facility] Hep B, Adol or Pedi 2002 Completed [facility] Dosage 00:00:00 [facility] Polio (IPV/OPV) 2002 Completed [facility] 00:00:00 [facility] DTAP 2002 Completed [facility] 00:00:00 [facility] HIB 4 Dose Schedule 2002 Completed [facility] 00:00:00 [facility] Hep B, Adol or Pedi 2002 Completed [facility] Dosage 00:00:00 [facility] HIB 4 Dose Schedule 2002 Completed [facility] 00:00:00 [facility] Polio (IPV/OPV) 2002 Completed [facility] 00:00:00 [facility] DTAP 2002 Completed [facility] of 00:00:00 [facility] HIB 4 Dose Schedule 2002 Completed Unive rsity of 00:00:00 [facility] Hep B, Adol or Pedi 2002 Completed Unive rsity of Dosage 00:00:00 [facility] Polio (IPV/OPV) 2002 Completed Universit y of 00:00:00 [facility] DTAP 2002 Completed University of 00:00:00 [facility] Hep B, Adol or Pedi 2002 Completed Unive rsity of Dosage 00:00:00 [facility] HIB 4 Dose Schedule 2002 Completed Unive rsity of 00:00:00 [facility] Hep B, Adol or Pedi 2002 Completed Unive rsity of Dosage 00:00:00 [facility] Polio (IPV/OPV) 2002 Completed Universit y of 00:00:00 [facility] DTAP 2002 Completed University of 00:00:00 [facility] HIB 4 Dose Schedule 2002 Completed Unive rsity of 00:00:00 [facility] Polio (IPV/OPV) 2002 Completed [facility] y [facility] 00:00:00 [facility] Hep B, Adol or Pedi 2002 Completed Unive rsity of Dosage 00:00:00 [facility] Polio (IPV/OPV) 2002 Completed [facility]it y of 00:00:00 [facility] DTAP 2002 Completed [facility] of 00:00:00 [facility] HIB 4 Dose Schedule 2002 Completed Unive rsity of 00:00:00 [facility] Hep B, Adol or Pedi 2002 Completed Unive rsity of Dosage 00:00:00 [facility] Polio (IPV/OPV) 2002 Completed Universit y of 00:00:00 [facility] DTAP 2002 Completed [facility] of 00:00:00 [facility] HIB 4 Dose Schedule 2002 Completed Unive rsity of 00:00:00 [facility] Hep B, Adol or Pedi 2002 Completed Unive rsity of Dosage 00:00:00 [facility] Polio (IPV/OPV) 2002 Completed Universit y of 00:00:00 [facility] DTAP 2002 Completed [facility] of 00:00:00 [facility] HIB 4 Dose Schedule 2002 Completed Unive rsity of 00:00:00 [facility] Hep B, Adol or Pedi 2002 Completed Unive rsity of Dosage 00:00:00 [facility] Polio (IPV/OPV) 2002 Completed Universit y of 00:00:00 [facility] DTAP 2002 Completed [facility] of 00:00:00 [facility] HIB 4 Dose Schedule 2002 Completed Unive rsity of 00:00:00 [facility] Hep B, Adol or Pedi 2002 Completed Unive rsity of Dosage 00:00:00 [facility] Polio (IPV/OPV) 2002 Completed Universit y of 00:00:00 [facility] DTAP 2002 Completed [facility] of 00:00:00 [facility] HIB 4 Dose Schedule 2002 Completed Unive rsity of 00:00:00 [facility] Hep B, Adol or Pedi 2002 Completed Unive rsity of Dosage 00:00:00 [facility] Polio (IPV/OPV) 2002 Completed Universit y of 00:00:00 [facility] DTAP 2002 Completed [facility] of 00:00:00 [facility] HIB 4 Dose Schedule 2002 Completed Unive rsity of 00:00:00 [facility] Hep B, Adol or Pedi 2002 Completed Unive rsity of Dosage 00:00:00 [facility] Polio (IPV/OPV) 2002 Completed Universit y of 00:00:00 [facility] DTAP 2002 Completed [facility] of 00:00:00 [facility] HIB 4 Dose Schedule 2002 Completed Unive rsity of 00:00:00 [facility] Hep B, Adol or Pedi 2002 Completed Unive rsity of Dosage 00:00:00 [facility] Polio (IPV/OPV) 2002 Completed [facility]it y of 00:00:00 [facility] DTAP 2002 Completed [facility] of 00:00:00 [facility] DTAP 2002 Completed [facility] of 00:00:00 [facility] HIB 4 Dose Schedule 2002 Completed Unive rsity of 00:00:00 [facility] Hep B, Adol or Pedi 2002 Completed Unive rsity of Dosage 00:00:00 [facility] Polio (IPV/OPV) 2002 Completed Universit y of 00:00:00 [facility] HIB 4 Dose Schedule 2002 Completed Unive rsity of 00:00:00 [facility] DTAP 2002 Completed [facility] of 00:00:00 [facility] HIB 4 Dose Schedule 2002 Completed Unive rsity of 00:00:00 [facility] Hep B, Adol or Pedi 2002 Completed Unive rsity of Dosage 00:00:00 [facility] Polio (IPV/OPV) 2002 Completed Universit y of 00:00:00 [facility] DTAP 2002 Completed [facility] of 00:00:00 [facility] HIB 4 Dose Schedule 2002 Completed Unive rsity of 00:00:00 [facility] Hep B, Adol or Pedi 2002 Completed Unive rsity of Dosage 00:00:00 [facility] Hep B, Adol or Pedi 2002 Completed Unive rsity of Dosage 00:00:00 [facility] Hep B, Adol or Pedi 2002 Completed Unive rsity of Dosage 00:00:00 [facility] Hep B, Adol or Pedi 2002 Completed Unive rsity of Dosage 00:00:00 [facility] Hep B, Adol or Pedi 2002 Completed Unive rsity of Dosage 00:00:00 [facility] Hep B, Adol or Pedi [...] 2002 Completed Unive rsity of Dosage 00:00:00 [facility] Hep B, Adol or Pedi 2002 Completed Unive rsity of Dosage 00:00:00 [facility] Vital Signs Vital Name Observation Time Observation Value Comments Source Systolic blood 2022-02-05 19:09:00 137 mm[Hg] Univer sity of pressure [facility] Diastolic blood 2022-02-05 19:09:00 79 mm[Hg] Unive rsity of pressure [facility] Heart rate 2022-02-05 19:09:00 94 /min Universi ty [facility] Body temperature 2022-02-05 19:09:00 37.06 Cara [facility] Respiratory rate 2022-02-05 19:09:00 18 /min [facility] Body height 2022-02-05 19:09:00 157.5 cm Universi ty [facility] Body weight 2022-02-05 19:09:00 84.732 kg Universi ty [facility] BMI 2022-02-05 19:09:00 34.17 kg/m2 Universi ty [facility] Systolic blood 2022-01-31 15:02:00 122 mm[Hg] Univer sity of pressure [facility] Diastolic blood 2022-01-31 15:02:00 77 mm[Hg] Unive rsity of pressure [facility] Heart rate 2022-01-31 15:02:00 67 /min Universi ty [facility] Body temperature 2022-01-31 15:02:00 37.11 Cara Univ ersity of [facility] Body height 2022-01-31 15:02:00 157.5 cm Universi ty [facility] Body weight 2022-01-31 15:02:00 82.555 kg Universi ty of [facility] BMI 2022-01-31 15:02:00 33.29 kg/m2 Universi ty of [facility] Systolic blood 2022-01-02 14:12:00 109 mm[Hg] Univer sity of pressure [facility] Diastolic blood 2022-01-02 14:12:00 67 mm[Hg] Unive rsity of pressure [facility] Heart rate 2022-01-02 14:12:00 58 /min Universi ty of [facility] Body temperature 2022-01-02 14:12:00 37.06 Cara Univ ersity of [facility] Respiratory rate 2022-01-02 14:12:00 18 /min Univ ersity of [facility] Body height 2022-01-02 14:12:00 157.5 cm Universi ty of [facility] Body weight 2022-01-02 14:12:00 80.74 kg Universi ty of [facility] BMI 2022-01-02 14:12:00 32.56 kg/m2 Universi ty of [facility] Systolic blood 2021-01-06 02:00:00 149 mm[Hg] Univer sity of pressure [facility] Diastolic blood 2021-01-06 02:00:00 97 mm[Hg] Unive rsity of pressure [facility] Heart rate 2021-01-06 02:00:00 101 /min Universi ty of [facility] Respiratory rate 2021-01-06 02:00:00 17 /min Univ ersity of [facility] Oxygen saturation in 2021-01-06 02:00:00 100 /min [facility] Arterial blood by [facility] Pulse oximetry Branch Body temperature 2021-01-06 01:46:00 36.06 Cara Univ ersity of [facility] Body height 2021-01-06 01:46:00 157.5 cm Universi ty of [facility] Body weight 2021-01-06 01:46:00 81.647 kg Universi ty of [facility] BMI 2021-01-06 01:46:00 32.92 kg/m2 Universi ty of [facility] Body mass index 2021-01-06 01:46:00 96.57 % Unive rsity of (BMI) [Percentile] [place] [facility] Per age and sex [facility] Systolic blood 2020-04-02 17:35:00 116 mm[Hg] Univer sity of pressure [facility] Diastolic blood 2020-04-02 17:35:00 72 mm[Hg] Unive rsity of pressure [facility] Heart rate 2020-04-02 16:53:00 73 /min Universi ty of [facility] Body temperature 2020-04-02 16:53:00 36.44 Cara Univ ersity of [facility] Respiratory rate 2020-04-02 16:53:00 18 /min Univ ersity of [facility] Body height 2020-04-02 16:53:00 159 cm Universi ty of [facility] Body weight 2020-04-02 16:53:00 82.101 kg Universi ty of [facility] BMI 2020-04-02 16:53:00 32.48 kg/m2 Universi ty of [facility] Oxygen saturation in 2020-04-02 16:53:00 98 /min University of Arterial blood by [facility] Pulse oximetry [facility] Systolic blood 2020-04-02 17:35:00 116 mm[Hg] Univer sity of pressure [facility] Diastolic blood 2020-04-02 17:35:00 72 mm[Hg] Unive rsity of pressure [facility] Heart rate 2020-04-02 16:53:00 73 /min Universi ty of [facility] Body temperature 2020-04-02 16:53:00 36.44 Cara Univ ersity of [facility] Respiratory rate 2020-04-02 16:53:00 18 /min Univ ersity of [facility] Body height 2020-04-02 16:53:00 159 cm Universi ty of [facility] Body weight 2020-04-02 16:53:00 82.101 kg Universi ty of [facility] BMI 2020-04-02 16:53:00 32.48 kg/m2 Universi ty of [facility] Oxygen saturation in 2020-04-02 16:53:00 98 /min University of Arterial blood by [facility] Pulse oximetry [facility] Systolic blood 2020-02-24 19:17:00 121 mm[Hg] Univer sity of pressure [facility] Diastolic blood 2020-02-24 19:17:00 77 mm[Hg] Unive rsity of pressure [facility] Heart rate 2020-02-24 19:16:00 84 /min Universi ty of [facility] Body temperature 2020-02-24 19:16:00 36.56 Cara Univ ersity of [facility] Respiratory rate 2020-02-24 19:16:00 18 /min Univ ersity of [facility] Body weight 2020-02-24 19:16:00 83.598 kg Universi ty of [facility] Oxygen saturation in 2020-02-24 19:16:00 100 /min University of Arterial blood by [facility] Pulse oximetry Branch BMI 2020-01-30 21:13:00 34.39 kg/m2 Universi ty of [facility] Systolic blood 2020-01-30 21:13:00 123 mm[Hg] Univer sity of pressure [facility] Diastolic blood 2020-01-30 21:13:00 70 mm[Hg] Unive rsity of pressure [facility] Heart rate 2020-01-30 21:13:00 83 /min Universi ty of [facility] Body temperature 2020-01-30 21:13:00 37.11 Cara Univ ersity of [facility] Respiratory rate 2020-01-30 21:13:00 18 /min Univ ersity of [facility] Body height 2020-01-30 21:13:00 157.5 cm Universi ty of [facility] Body weight 2020-01-30 21:13:00 85.276 kg Universi ty of [facility] Systolic blood 2020-01-10 20:41:00 129 mm[Hg] Univer sity of pressure [facility] Diastolic blood 2020-01-10 20:41:00 72 mm[Hg] Unive rsity of pressure [facility] Heart rate 2020-01-10 20:41:00 98 /min Universi ty of [facility] Body temperature 2020-01-10 20:41:00 36.72 Cara Univ ersity of [facility] Respiratory rate 2020-01-10 20:41:00 18 /min Univ ersity of [facility] Body height 2020-01-10 20:41:00 157.5 cm Universi ty of [facility] Body weight 2020-01-10 20:41:00 85.276 kg Universi ty of [facility] BMI 2020-01-10 20:41:00 34.39 kg/m2 Universi ty of [facility] Body temperature 2019-10-12 19:39:00 35.72 Cara Univ ersity of [facility] Body height 2019-10-12 19:39:00 159 cm Universi ty of [facility] Body weight 2019-10-12 19:39:00 82.6 kg Universi ty of [facility] BMI 2019-10-12 19:39:00 32.67 kg/m2 Universi ty of [facility] Systolic blood 2019-10-07 18:10:00 121 mm[Hg] Univer sity of pressure [facility] Diastolic blood 2019-10-07 18:10:00 79 mm[Hg] Unive rsity of pressure [facility] Heart rate 2019-10-07 18:10:00 77 /min Universi ty of [facility] Body temperature 2019-10-07 18:10:00 36.89 Cara Univ ersity of [facility] Respiratory rate 2019-10-07 18:10:00 18 /min Univ ersity of [facility] Body height 2019-10-07 18:10:00 157.5 cm Universi ty of [facility] Body weight 2019-10-07 18:10:00 81.647 kg Universi ty of [facility] BMI 2019-10-07 18:10:00 32.92 kg/m2 Universi ty of [facility] Systolic blood 2019-10-06 20:18:00 123 mm[Hg] Univer sity of pressure [facility] Diastolic blood 2019-10-06 20:18:00 86 mm[Hg] Unive rsity of pressure [facility] Heart rate 2019-10-06 20:18:00 96 /min Universi ty of [facility] Body temperature 2019-10-06 20:18:00 36.78 Cara Univ ersity of [facility] Respiratory rate 2019-10-06 20:18:00 16 /min Univ ersity of [facility] Body height 2019-10-06 20:18:00 157.5 cm Universi ty of [facility] Body weight 2019-10-06 20:18:00 80.786 kg Universi ty of [facility] BMI 2019-10-06 20:18:00 32.57 kg/m2 Universi ty of [facility] Oxygen saturation in 2019-10-06 20:18:00 98 /min [facility] Arterial blood by [facility] Pulse oximetry Branch Systolic blood 2019-08-04 18:52:00 129 mm[Hg] Univer sity of pressure [facility] Diastolic blood 2019-08-04 18:52:00 78 mm[Hg] Unive rsity of pressure [facility] Heart rate 2019-08-04 18:52:00 86 /min Universi ty of [facility] Body temperature 2019-08-04 18:52:00 37.22 Cara Univ ersity of [facility] Respiratory rate 2019-08-04 18:52:00 18 /min Univ ersity of [facility] Body height 2019-08-04 18:52:00 157.5 cm Universi ty of [facility] Body weight 2019-08-04 18:52:00 84.369 kg Universi ty of [facility] BMI 2019-08-04 18:52:00 34.02 kg/m2 Universi ty of [facility] Systolic blood 2019-05-23 21:28:00 121 mm[Hg] Univer sity of pressure [facility] Diastolic blood 2019-05-23 21:28:00 77 mm[Hg] Unive rsity of pressure [facility] Heart rate 2019-05-23 21:28:00 80 /min Universi ty of [facility] Body temperature 2019-05-23 21:28:00 37.39 Cara Univ ersity of [facility] Respiratory rate 2019-05-23 21:28:00 18 /min Univ ersity of [facility] Body height 2019-05-23 21:28:00 158.5 cm Universi ty of [facility] Body weight 2019-05-23 21:28:00 85.095 kg Universi ty of [facility] BMI 2019-05-23 21:28:00 33.87 kg/m2 Universi ty of [facility] Oxygen saturation in 2019-05-23 21:28:00 100 /min University of Arterial blood by [facility] Pulse oximetry Branch Systolic blood 2019-05-16 21:51:00 123 mm[Hg] Univer sity of pressure [facility] Diastolic blood 2019-05-16 21:51:00 73 mm[Hg] Unive rsity of pressure [facility] Heart rate 2019-05-16 21:51:00 72 /min Universi ty of [facility] Body temperature 2019-05-16 21:51:00 36.78 Cara Univ ersity of [facility] Respiratory rate 2019-05-16 21:51:00 18 /min Univ ersity of [facility] Body height 2019-05-16 21:51:00 157.5 cm Universi ty of [facility] Body weight 2019-05-16 21:51:00 85.276 kg Universi ty of [facility] BMI 2019-05-16 21:51:00 34.39 kg/m2 Universi ty of [facility] Body temperature 2019-05-03 20:09:00 36.83 Cara Univ ersity of [facility] Body height 2019-05-03 20:09:00 157.5 cm Universi ty of [facility] Body weight 2019-05-03 20:09:00 82.2 kg Universi ty of [facility] BMI 2019-05-03 20:09:00 33.14 kg/m2 Universi ty of [facility] Body temperature 2019-03-22 21:03:00 37 Cara Univ ersity of [facility] Body weight 2019-03-22 21:03:00 83.4 kg Universi ty of [facility] Systolic blood 2018-11-12 13:21:00 120 mm[Hg] Univer sity of pressure [facility] Diastolic blood 2018-11-12 13:21:00 78 mm[Hg] Unive rsity of pressure [facility] Heart rate 2018-11-12 13:21:00 72 /min Universi ty of [facility] Body temperature 2018-11-12 13:21:00 37.83 Cara Univ ersity of [facility] Respiratory rate 2018-11-12 13:21:00 18 /min Univ ersity of [facility] Body weight 2018-11-12 13:21:00 76.023 kg Universi ty of [facility] BMI 2018-11-12 13:21:00 29.69 kg/m2 Universi ty of [facility] Systolic blood 2018-11-11 13:42:00 123 mm[Hg] Univer sity of pressure [facility] Diastolic blood 2018-11-11 13:42:00 81 mm[Hg] Unive rsity of pressure [facility] Heart rate 2018-11-11 13:42:00 64 /min Universi ty of [facility] Body temperature 2018-11-11 13:42:00 36.94 Cara Univ ersity of [facility] Respiratory rate 2018-11-11 13:42:00 18 /min [facility] 2018-11-11 13:42:00 160 cm [facility]i ty [facility] Body weight 2018-11-11 13:42:00 75.297 kg Universi ty [facility] [place] BMI 2018-11-11 13:42:00 29.41 kg/m2 Universi [facility] Systolic blood 2018-10-07 20:01:00 123 mm[Hg] Univer sity of [facility] Diastolic blood 2018-10-07 20:01:00 80 mm[Hg] Unive [facility] Heart rate 2018-10-07 20:01:00 97 /min [facility] Body temperature 2018-10-07 20:01:00 36.56 Cara [facility] Respiratory rate 2018-10-07 20:01:00 16 /min [facility] Body height 2018-10-07 20:01:00 158.7 cm Universi [facility] Body weight 2018-10-07 20:01:00 74.844 kg Universi ty [facility] [place] BMI 2018-10-07 20:01:00 29.72 kg/m2 [facility] Oxygen saturation in 2018-10-07 20:01:00 99 /min [facility] Arterial blood by [facility] Pulse oximetry Branch Procedures Procedure Date / Time Performing Source Performed Clinician BI ULTRASOUND BREAST COMPLETE 2022-02-21 Kori Casarez [facility] BILATERAL 19:23:00 [facility] [place] US PELVIS COMPLETE WITH 2022-02-21 Kori Casarez [facility] TRANSVAGINAL 17:55:34 [facility] [place] DISCLOSURE AND CONSENT, 2022-01-31 Doctor Unassigned, [facility] MEDICAL AND SURGICAL 06:01:00 [place] [facility] PROCEDURES POCT TEST 2022-01-31 [place] Garduno [facility] 00:00:00 [facility] [place] ASSIGNMENT OF BENEFITS 2022-01-02 Doctor Unassigned, [facility] 14:07:23 [facility] [facility] POCT TEST 2021-01-06 Roma Adame [facility] 02:44:00 [facility] URINALYSIS 2021-01-06 Roma Adame [facility] 02:34:00 [facility] URINE DRUG (IMMUNOASSAY) - 2021-01-06 Roma Adame [facility] COMPREHENSIVE DRUG SCREEN W/O [facility] WHOLE BLOOD 2021-01-06 Roma Adame [facility] 02:23:00 [facility] COMP. METABOLIC PANEL (72002) 2021-01-[address] [facility] 02:03:00 [facility] ETHANOL 2021-01-06 Roma Adame [facility] 02:03:00 [facility] CBC WITH DIFF 2021-01-06 Roma Adame [facility] 02:03:00 [facility] MENINGOCOCCAL B VACCINE, OMV, 2020-04-[address] [facility] 2 DOSE, IM 16:43:42 [facility] POCT RAPID STREP SCREEN FOR 2020-02-24 Catracho Tamayo [facility] GROUP A 19:24:00 [facility] EXTERNAL PROVIDER RECORDS 2019-10-13 Doctor Unassigned, [facility] 05:01:00 [place] [facility] PEDI ELECTROENCEPHALOGRAM 2019-10-12 Dalia Arreguin [facility] 00:00:00 [facility] DISCLOSURE AND CONSENT, 2019-10-07 Doctor Aliza, [facility] MEDICAL [facility] SURGICAL 05:01:00 [place] [facility] PROCEDURES AUTHORIZATION TO RELEASE PHI 2019-10-06 Doctor Aliza, [facility] TO [facility] 05:01:00 [facility] BI ULTRASOUND BREAST LIMITED 2019-08-16 Alexandria Whitmore [facility] LEFT 13:29:57 [facility] CONSENT FOR CONTRACEPTION 2019-08-04 Doctor Unashannan, [facility] 05:01:00 [place] [facility] POCT TEST 2019-08-04 [place] Whitmore [facility] [place] 00:00:00 [facility] POCT URINALYSIS W/O SPECIFIC 2019-08-04 Alexandria Whitmore [facility] GRAVITY 00:00:00 [facility] AGREEMENTS AUTHORIZATIONS AND 2019-06-16 Doctor Aliza, [facility] IRREVOCABLE ASSIGNMENTS (FORM 05:01:00 [place] [facility] 2000) CONSENT/REFUSAL FOR DIAGNOSIS 2019-05-03 Doctor Unassigned, [facility] AND TREATMENT 19:11:33 [facility] URINE CULTURE 2019-03-22 Demetrius Morgan [facility] 21:53:00 [facility] CONSENT FOR DEPO-PROVERA 2018-11-11 Doctor Unassigned, [facility] 05:01:00 [place] [facility] [place] MENINGOCOCCAL B 2018-10-07 Roni Catracho [facility] VACCINE(TRUMENBA) 2 OR 3 DOSE 20:59:48 [facility] SERIES, IM MENACTRA (MCV4-D) VACCINE 2018-10-07 Catracho Tamayo [facility] 20:59:21 [facility] Encounters Start End Encounter Admission Attending Care Care Encounter Source Date/Time Date/Time Type Type Clinicians Facility Department ID 2021-01-22 Emergency [facility] [id number] Univers 07:20:19 ity [facility] 2023-01-05 2023-01-05 [facility] [id number] Univers 08:30:00 08:30:00 KORI ity [facility] 2022-02-21 2022-02-21 [facility] [id number] Univers 12:00:22 23:59:00 Encounter [facility] [id number] ity [id number] [id number] [facility] 800 Branch 2022-02-21 2022-02-21 Out[facility] [id number] Univers 10:48:03 11:59:00 KORI ity [facility] 2022-02-21 2022-02-21 [facility] [id number] Univers 10:48:03 11:59:00 Encounter [facility] HEALTH [id number] [id number] [id number] [facility] 806 Branch 2022-02-05 2022-02-05 Out[facility] [id number] Univers 13:00:00 13:36:35 [place] antoine of [facility] 2022-02-05 2022-02-05 [facility] [id number] Univers 13:00:00 13:36:35 Visit [place] SAPP [id number] i ty of [id number] [id number] [address] 2022-02-05 2022-02-05 [facility] [id number] Univers 00:00:00 00:00:00 [place] Ridley NICOLE [id number] ity [facility] [id number] [id number] [place] dical NAL [address] [place], [place] [address] 2022-02-05 2022-02-05 Letter [facility] 1.2.471.255 [id number] Univers 00:00:00 00:00:00 (Out) [place] SAPP 350.1.13.10 i ty of [place] [phone] [address] 2022-01-31 2022-01-31 [facility] [id number] Univers 08:30:00 09:33:19 [place] antoine [facility] 2022-01-31 2022-01-31 [facility] 1.2.840.114 [id number] Univers 08:30:00 09:33:19 Visit [place] Ridley NICOLE 350.1.13.10 ity [facility] [place] [phone] Il dical NAL [address] [place] [address] 2022-01-31 2022-01-31 Orders Doctor CAPUTO 1.2.840.114 [id number] Univers 00:00:00 00:00:00 Only Unassigned, JACQUE 350.1.13.10 ity of [place] [facility] 4.2.7.2.686 Tawanda as [phone] [address] 2022-01-31 2022-01-31 Letter [facility] 1.2.840.114 [id number] Univers 00:00:00 00:00:00 (Out) [place] RIVERA 350.1.13.10 ity [facility] [place] [phone] Il dical NAL 134 [facility] 2022-01-13 2022-01-13 Outpatient R GREGORIO DELCID [facility] [id number] Univers 09:00:00 09:00:00 ity [facility] 2022-01-13 2022-01-13 Telephone Brandt [facility] 1.2.632.605 [id number] Univers 00:00:00 00:00:00 Liu BAO 350.1.13.10 [facility] [place] [phone] [address] 2022-01-10 2022-01-10 Outpatient R JONATHAN [facility] [id number] Univers 13:00:00 13:00:00 HAYLEY antoine [facility] 2022-01-02 2022-01-02 Rehabilitation Construction Specialist 2, Adc Lab [facility] 1..840.114 [id number] Univers 10:45:00 11:00:00 Visit Kori Casarez 350.1.13.10 [facility] [place] [phone] [facility] 2022-01-02 2022-01-02 Outpatient R HERMELINDO [facility] [id number] Univers 09:30:00 10:12:42 KORI antoine [facility] 2022-01-02 2022-01-02 Office [facility] 1.2.977.965 [id number] Univers 09:30:00 10:12:42 Visit Kori RIVERA 350.1.13.10 i ty of [place] [phone] Il dical NAL 134 [facility] 2022-01-02 2022-01-02 Orders Doctor CAPUTO 1.2.840.114 [id number] Univers 00:00:00 00:00:00 Only Unassigned, JACQUE 350.1.13.10 [facility] 4.2.7.2.686 Tawanda as [phone] [facility] [address] [place] 2021-04-03 2021-04-03 Outpatient Suly TAMAYO [facility] [id number] Univers 10:40:00 10:40:00 CATRACHO [facility] 2021-02-22 2021-02-22 Telephone [facility] 1.2.439.820 [id number] Univers 00:00:00 00:00:00 Alena RIVERA 350.1.13.10 ity of [place] [phone] Il dical NAL 225 [facility] 2021-02-12 2021-02-12 Telephone [facility] 1.2.840.114 [id number] Univers 00:00:00 00:00:00 Kori RIVERA 350.1.13.10 i ty of [place] [phone] Il dical NAL 134 [facility] 2021-01-05 2021-01-05 Emergency [facility] 1.2.117.356 [id number] Univers 20:38:00 22:55:00 Roma Robledo Nicole 350.1.13.10 ity of [place] [phone] [facility] [address] [place] 2020-08-23 2020-08-23 Outpatient Suly CASAREZ [facility] [id number] Univers 15:00:00 15:00:00 KORI antoine [facility] 2020-08-06 2020-08-06 Outpatient Suly CASAREZ [facility] [id number] Univers 14:00:00 14:00:00 KORI antoine [facility] 2020-07-06 2020-07-06 Outpatient Suly CANALES [facility] [id number] Univers 11:20:00 11:20:34 EMELY antoine [facility] 2020-06-15 2020-06-15 Outpatient Suly CANALES [facility] [id number] Univers 11:20:00 12:18:13 EMELY ity of [facility] 2020-06-12 2020-06-12 Patient Jermain [facility] 1.2.840.114 [id number] 00:00:00 00:00:00 Outreach Chinmay PRIMARY 350.1.13.10 [place] CARE 4.2.7.2.686 PAVILLION [phone] 388 2020-06-12 2020-06-12 Patient Jermain [facility] 1.2.840.114 [id number] Univers 00:00:00 00:00:00 Outreach Chinmay PRIMARY 350.1.13.10 i ty of [place] C[place] [phone] [address] 2020-04-25 2020-04-25 Telephone Alexandria Whitmore [facility] 1.2.840.114 [id number] 00:00:00 00:00:00 Skyler Rivera 350.1.13.10 [place] 4.2.7.2.686 Professio [phone] [address] 2020-04-25 2020-04-25 Telephone Alexandria Whitmore [facility] 1.2.840.114 [id number] Univers 00:00:00 00:00:00 Cam Nicole 350.1.13.10 i ty of [place] [phone] [facility] 134 [facility] 2020-04-16 2020-04-16 Nurse Nurse, Tony Quveedo [facility] 1.2.84 0.114 [id number] Univers 10:23:22 10:43:22 Visit Alena Erickson 350.1.13. 10 ity of [place].2.[place] [phone] [facility] 225 [facility] 2020-04-16 2020-04-16 Outpatient R [facility] [id number] Univers 10:20:00 10:20:00 ity [facility] 2020-04-03 2020-04-03 Rehabilitation Construction Specialist 2, Adc Lab [facility] 1.2.840.114 [id number] [facility] 11:08:11 11:23:11 Visit Alena Erickson 350.1.13. 10 ity of [place] [phone] Il dical [facility] 353 [facility] 2020-04-03 2020-04-03 Outpatient R DRE [facility] [id number] Univers 11:00:00 11:00:00 ALENA antoine [facility] 2020-04-02 2020-04-02 Carmela [facility] 1.2.840.114 [id number] Univers 11:30:50 13:18:47 Encounter Catracho [place] 350.1.13.10 ity of [place] [phone] [facility] 225 [facility] 2020-04-02 2020-04-02 Office [facility] 1.2.840.114 [id number] Univers 10:47:55 11:50:03 Visit Catracho Rivera 350.1.13.10 i ty of [place] 4.[place].2.[place] [phone] Il dic[address] 2020-04-02 2020-04-02 Office [facility] 1.2.840.114 [id number] 10:47:55 11:50:03 Visit Catracho [place] 350.1.13.10 [place] 4.2.7.2.686 Professio [phone] [address] 2020-04-02 2020-04-02 Outpatient R RONI [facility] [id number] Univers 10:40:00 10:40:00 CATRACHO antoine [facility] 2020-04-02 2020-04-02 Kathy Erickson [facility] 1.2.840.114 [id number] Univers 00:00:00 00:00:00 (Out) Alena Rivera 350.1.13.10 ity of [place].2.[place] [phone] Il dic[address] 2020-02-24 2020-02-24 Office [facility] 1.2.840.114 [id number] Univers 13:11:12 14:13:29 Visit Catracho Rivera 350.1.13.10 i ty of [place] 4[place].2.[place] [phone] [facility] 225 [facility] 2020-02-24 2020-02-24 Outpatient R RONI [facility] [id number] Univers 13:00:00 13:00:00 CATRACHO [facility] 2020-02-01 2020-02-01 Outpatient R [facility] [id number] Univers 13:00:00 13:00:00 [facility] 2020-01-30 2020-01-30 Office Whitmoer Alexandria [facility] 1..686.797 [id number] Univers 14:47:20 15:35:45 Visit Skyler [place] 350.1.13.10 i ty of [place].2.[place] [phone] [facility] 134 [facility] 2020-01-30 2020-01-30 Outpatient R ALEXANDRIA WHITMORE [facility] [id number] Univers 15:00:00 15:00:00 [facility] 2020-01-10 2020-01-10 Office [facility] 1.2.391.530 [id number] Univers 14:35:02 16:02:32 Visit Kori Rivera 350.1.13.10 i ty of [place] 4.[place].2.[place] [phone] [facility] 134 [facility] 2020-01-10 2020-01-10 Outpatient R HERMELINDO [facility] [id number] Univers 14:45:00 14:45:00 KORI [facility] 2019-12-15 2019-12-15 Outpatient R HERMELINDO [facility] [id number] Univers 10:45:00 10:45:00 [facility] 2019-12-15 2019-12-15 Telephone [facility] 1..622.243 [id number] Univers 00:00:00 00:00:00 Alena France BINDERY ASSISTANT 350.1.13.10 ity of [facility] 4.2.7.2.686 Tawanda as MATERNAL [phone] Med ical & CHILD [address] [place] [address] 2019-11-30 2019-11-30 Outpatient R [facility] [id number] Univers 15:00:00 15:00:00 ity [facility] 2019-11-18 2019-11-18 [facility] [id number] Univers 09:30:00 09:30:00 KORI ity [facility] 2019-11-14 2019-11-14 Telephone Alexandria Whitmore [facility] 1.2.840.114 [id number] Univers 00:00:00 00:00:00 Skyler [place] 350.1.13.10 i ty of [place].2.[place] [phone] Il dical nal 134 [facility] 2019-10-13 2019-10-13 Orders Doctor PATITO 1.2.840.114 [id number] Univers 00:00:00 00:00:00 Only Unassigned, JACQUE 350.1.13.10 ity of [place] [facility] 4.2.7.2.686 Tawanda as [phone] [facility] [address] [place] 2019-10-12 2019-10-12 Hospital Dalia Arreguin [facility] 1.2.840.11 [id number] Univers 12:44:00 23:59:00 Encounter Eeg, Sapna Pedi Neuro SPECIALTY 350.1. 13.10 ity of [place].7.2.[place] [phone] [facility] [address] [place] 2019-10-12 2019-10-12 Office Kallie [facility] 1.2.840.114 [id number] Univers 12:44:33 13:44:33 Visit Dalia Barakat SPECIALTY 350.1.13.10 ity of [place].2.[place] [phone] [facility] [address] [place] 2019-10-12 2019-10-12 Outpatient [facility] [id number] Univers 13:00:00 13:00:00 DALIA antoine of [facility] 2019-10-07 2019-10-07 Office HaimAlexandria [facility] 1.2.058.618 [id number] Univers 12:46:26 13:32:19 Visit Skyler Rivera 350.1.13.10 i ty of [place].2.[place] [phone] Il dical nal 134 [facility] 2019-10-07 2019-10-07 Outpatient R HAIM ALEXANDRIA [facility] [id number] Univers 13:00:00 13:00:00 ity of [facility] 2019-10-07 2019-10-07 Orders Doctor PATITO 1.2.840.114 [id number] Univers 00:00:00 00:00:00 Only Unassigned, JACQUE 350.1.13.10 ity of [place] [facility] 4.2.7.2.686 Tawanda as [phone] [address] 2019-10-06 2019-10-06 Office [facility] 1.2.840.114 [id number] Univers 14:55:54 17:13:05 Visit Alena Rivera 350.1.13.10 ity of [place] [phone] [facility] 225 [facility] 2019-10-06 2019-10-06 Outpatient R DRE [facility] [id number] Univers 15:00:00 15:00:00 ALENA antoine of [facility] 2019-10-06 2019-10-06 Orders Doctor CAPUTO 1.2.840.114 [id number] Univers 00:00:00 00:00:00 Only Unassigned, JACQUE 350.1.13.10 ity of [place] [facility] 4.2.7.2.686 Tawanda as [phone] [address] 2019-10-05 2019-10-05 Telephone Hermelindo [facility] 1.2.840.114 [id number] Univers 00:00:00 00:00:00 Kori Rivera 350.1.13.10 i ty of [place].2.[place] [phone] Il dical nal 134 [facility] 2019-09-28 2019-09-28 Outpatient R [facility] [id number] Univers 15:30:00 15:30:00 ity of [facility] 2019-09-15 2019-09-15 Outpatient [facility] [id number] Univers 15:00:00 15:00:00 KORI ity of [facility] 2019-08-31 2019-08-31 Outpatient R [facility] [id number] Univers 15:00:00 15:00:00 ity of [facility] 2019-08-16 2019-08-16 Outpatient R ALEXANDRIA WHITMORE [facility] [id number] Univers 07:38:13 23:59:00 ity of [facility] 2019-08-16 2019-08-16 Hospital Alexandria Whitmore [facility] 1.2.840.114 [id number] Univers 07:38:00 23:59:00 Encounter Skyler Rivera 350.1.13.10 ity of [place].2.[place] [phone] [address] 2019-08-08 2019-08-08 Case [facility] 1.2.864.973 [id number] Univers 00:00:00 00:00:00 Management Kori Rivera 350.1.13.10 ity of [place].2.[place] [phone] Il dical nal [address] [place] [address] 2019-08-04 2019-08-04 Office [facility] 1.2.736.281 [id number] Univers 13:33:06 14:36:24 Visit Skyler Rivera 350.1.13.10 i ty of [place] 4.2.7.2.[place] [phone] Il dical nal [address] [place] [address] 2019-08-04 2019-08-04 Outpatient R ALEXANDRIA WHITMORE [facility] [id number] Univers 13:30:00 13:30:00 ity of [facility] 2019-08-04 2019-08-04 Orders Doctor CAPUTO 1.2.840.114 [id number] Univers 00:00:00 00:00:00 Only Unassigned, JACQUE 350.1.13.10 ity of [place] [facility] 4.2.7.2.686 Tawanda as [phone] [address] 2019-07-19 2019-07-19 Telephone Alexandria Whitmore [facility] 1.2.840.114 [id number] Univers 00:00:00 00:00:00 Skyler Rivera 350.1.13.10 i ty of [place].2.[place] [phone] Il dical nal 134 [facility] 2019-06-16 2019-06-16 Rehabilitation Construction Specialist 2, Adc Lab [facility] 1.2.840.114 [id number] Univers 11:24:51 11:39:51 Visit Alena Erickson 350.1.13. 10 ity of [place].2.[place] [phone] [facility] 353 [facility] 2019-06-16 2019-06-16 Outpatient R DRE [facility] [id number] Univers 11:15:00 11:15:00 ALENA antoine [facility] 2019-06-16 2019-06-16 Orders Doctor PATITO 1.2.840.114 [id number] Univers 00:00:00 00:00:00 Only Unassigned, JACQUE 350.1.13.10 ity of [place] [facility]PITAL 4.2.7.2.686 Tawanda as [phone] [address] 2019-06-16 2019-06-16 Telephone Dre [facility] 1.2.812.258 [id number] Univers 00:00:00 00:00:00 Alena Rivera 350.1.13.10 ity of [place] [phone] [facility] 225 [facility] 2019-06-15 2019-06-15 Outpatient R HERMELINDO [facility] [id number] Univers 10:45:00 10:45:00 KORI antoine [facility] 2019-06-15 2019-06-15 Telemedici Hermelindo [facility] 1.2.840.114 [id number] Univers 08:26:10 08:56:10 ne Visit Kori Rivera 350.1.13.10 ity of [place].2.[place] [phone] [address] 2019-06-09 2019-06-09 Outpatient R HERMELINDO [facility] [id number] Univers 08:45:00 08:45:00 KORI [facility] 2019-06-02 2019-06-02 Outpatient R HERMELINDO [facility] [id number] Univers 15:45:00 15:45:00 [facility] 2019-05-31 2019-05-31 Outpatient R [facility] [id number] Univers 13:45:00 13:45:00 [facility] 2019-05-23 2019-05-23 Office Dre [facility] 1.2.840.114 [id number] Univers 14:21:31 16:27:38 Visit Alena Rivera 350.1.13.10 ity of [place] [phone] [address] 2019-05-23 2019-05-23 Outpatient R DRE [facility] [id number] Univers 14:30:00 14:30:00 ALENA antoine [facility] 2019-05-23 2019-05-23 Letter Dre [facility] 1.2.840.114 [id number] Univers 00:00:00 00:00:00 (Out) Alena Rivera 350.1.13.10 ity of [place] [phone] [address] 2019-05-16 2019-05-16 Nurse Nurse, [facility] 1.2.840.114 [id number] Univers 15:19:14 15:52:21 Visit Alexandria Whitmore 350.1.13.10 ity of [place] 4[place].2.[place] [phone] [address] 2019-05-16 2019-05-16 Outpatient R ALEXANDRIA WHITMORE [facility] [id number] Univers 15:30:00 15:30:00 ity of [facility] 2019-05-03 2019-05-03 Office Urology, Clc Bls Pedi [facility] 1.2. 840.114 [id number] Univers 13:12:12 14:43:58 Visit Demetrius [place] [facility] 350.1.13.1 0 ity of [place].2.[place] [phone] [address] Office Building 2019-05-03 2019-05-03 Orders Doctor PATITO 1.2.840.114 [id number] Univers 00:00:00 00:00:00 Only Unassigned, JACQUE 350.1.13.10 ity of [place] [facility] 4.2.7.2.686 Tawanda as [phone] [address] 2019-05-03 2019-05-03 Letter Urology, [facility] 1.2.840.114 [id number] Univers 00:00:00 00:00:00 (Out) [facility] 350.1.13.10 it y of [place] [phone] [address] Office Building 2019-03-22 2019-03-22 Office Urology, Sapna Pedi [facility] 1.2.840. 114 [id number] Univers 14:44:34 16:20:55 Visit Demetrius [place] [facility] 350.1.13 .10 ity of [place]2.7.2.[place] [phone] [address] 2018-12-01 2018-12-01 Telephone [facility] 1.2.840.114 [id number] Univers 00:00:00 00:00:00 Apryl Rivera 350.1.13.10 i ty of [place].2.[place] [phone] [place] [address] [address] 2018-11-30 2018-11-30 Telephone Guerrero, [facility] 1.2.840.114 [id number] Univers 00:00:00 00:00:00 Apryl Rivera 350.1.13.10 i ty of [place] [phone] [facility] 134 [facility] 2018-11-12 2018-11-12 Office Cesar [facility] 1.2.840.114 [id number] Univers 07:59:52 08:43:27 Visit Apryl Rivera 350.1.13.10 i ty of [place] 4[place].2.[place] [phone] [facility] 134 [facility] 2018-11-12 2018-11-12 Letter Cesar [facility] 1.2.840.114 [id number] Univers 00:00:00 00:00:00 (Out) Apryl Rivera 350.1.13.10 i ty of [place] 4[place]2.[place].2.[place] [phone] [facility] 134 [facility] 2018-11-11 2018-11-11 Nurse Nurse, [facility] 1.2.840.114 [id number] Univers 08:24:16 08:54:22 Visit Alexandria Whitmore 350.1.13.10 ity of [place] 4[place]2.[place].2.[place] [phone] [facility] 134 [facility] 2018-11-11 2018-11-11 Orders Doctor PATITO 1.2.840.114 [id number] Univers 00:00:00 00:00:00 Only Unassigned, JACQUE 350.1.13.10 ity of [place] [facility] 4.2.7.2.686 Tawanda as [phone] [address] 2018-10-07 2018-10-07 Office Catracho Tamayo [facility] 1.2.840.1 14 [id number] Univers 14:49:05 16:35:54 Visit Alena Erickson 350.1.13. 10 ity of [place].2.[place] [phone] [facility] 225 [facility] Results Test Description Test Time Test Comments Results Result Comments Source POCT TEST 2022-01-31 15:01:00 Test Item Value Reference Range Interpretation Comme nts POCT PREG (test code = 1605) Negative On board controls acceptable with C Line (test code = 3574) Yes POCT PREG LOT # (test code = 3575) POCT PREG TEST DATE (test code = 3576) [facility] [id number] 15:01:00 Test Item Value Reference Range Interpretation Comments POCT PREG (test code = 1605) Negative On board controls acceptable with C Yes Line (test code = 3574) POCT PREG LOT # (test code = 3575) POCT PREG TEST DATE (test code = 3576) [facility] [id number] 15:01:00 Test Item Value Reference Range Interpretation Comments POCT PREG (test code = 1605) Negative On board controls acceptable with C Yes Line (test code = 3574) POCT PREG LOT # (test code = 3575) POCT PREG TEST DATE (test code = 3576) [facility] 02:46:43 Test Item Value Reference Range Interpretation Comments ALCOHOL (test code = <10 mg/dL 0872591667) HAZEL (test code = HAZEL) <10 [id number] Toxic>100 Depression of CLIP ON SUNGLASSES INSPECTOR>400 Fatalities Reported [facility] [id number] 02:44:00 Test Item Value Reference Range Interpretation Comments POCT PREG (test code = 1605) negative On board controls acceptable with present C Line (test code = 3574) POCT PREG LOT # (test code = 3575) [id number] POCT PREG TEST DATE (test 2022-04-22 code = 3576) Lab Interpretation (test code = Normal 22370-7) [facility]OLIC PANEL (24804)2021-01-06 02:40:21 Test Item Value Reference Range Interpretation Comments NA (test code = 139 mmol/L 135-145 0739737493) K (test code = 3.8 mmol/L 3.5-5.0 9581096129) CL (test code = 114 mmol/L 98-108 H 1035220295) CO2 TOTAL (test code = 20 mmol/L 23-31 L 7388639894) AGAP (test code = 2-16 3515867899) BUN (test code = 13 mg/dL 7-23 0849227301) GLUCOSE (test code = 86 mg/dL 70-110 2251029251) CREATININE (test code = 0.53 mg/dL 0.50-1.04 3204113809) TOTAL BILI (test code = 0.4 mg/dL 0.1-1.5 0993168763) CALCIUM (test code = 7.8 mg/dL 8.6-10.6 L 5226221602) T PROTEIN (test code = 5.6 g/dL 6.3-8.2 L 2273971684) ALBUMIN (test code = 3.1 g/dL 3.5-5.0 L 2746172960) ALK PHOS (test code = 36 U/L 34-122 9299585646) ALTv (test code = 14 U/L 5-35 2-6) AST(SGOT) (test code = 26 U/L 13-40 9269529117) eGFR (test code = mL/min/1.73m2 8927986250) HAZEL (test code = HAZEL) Association of [...] tests). Lab Interpretation Abnormal (test code = 34401-1) [facility] Acid Whole [id number] 02:30:07 Test Item Value Reference Range Interpretation Comments LACTIC ACID (test code = 1.53 mmol/L 0.50-2.20 9991760474) Lab Interpretation (test code = Normal 11285-6) [facility] WITH [id number] 02:20:01 Test Item Value Reference Range Interpretation [...] RDW-SD (test code = 45.0 fL 38.5-49.0 93803-8) RDW-CV (test code = 14.8 % 11.5-14.0 H 788-0) PLT (test code = See_Comment [Automated 777-3) message] The sy stem which generated this result transmitted reference range : 135 - 361 10*3/ ?L. The reference r ilsa was not used to interpret this result as normal/abnormal . MPV (test code = 10.5 fL 9.4-13.3 33392-0) NRBC/100 WBC (test See_Comment [Automat ed code = [id number]) message] The system which generated this result transmitted reference range : 0.0 - 10.0 /100 WBCs. The refer ence range was not u sed to interpret th is result as normal/abnormal . NRBC x10^3 (test code <0.01 See_Comment [Auto mated = [id number]) message] The s ystem which generated this result transmitted reference range : 10*3/?L. The reference range was not used to interpret this result as normal/abnormal . GRAN MAT (NEUT) % 45.6 % (test code = 770-8) IMM GRAN % (test code 0.20 % = [id number]) LYMPH % (test code = 42.0 % 736-9) MONO % (test code = 9.9 % 5905-5) EOS % (test code = 2.1 % 713-8) BASO % (test code = 0.2 % 706-2) GRAN MAT x10^3(ANC) 3.68 10*3/uL 1.50-10.30 (test code = [id number]) IMM GRAN x10^3 (test <0.03 0.00-0.06 code = [id number]) LYMPH x10^3 (test code 3.39 10*3/uL 0.70-7.40 = 731-0) MONO x10^3 (test code 0.80 10*3/uL 0.00-0.50 H = 742-7) EOS x10^3 (test code = 0.17 10*3/uL 0.00-0.40 711-2) BASO x10^3 (test code <0.03 0.00-0.10 = 704-7) Lab Interpretation Abnormal (test code = 78059-2) [facility] RAPID STREP SCREEN FOR GROUP [id number] 19:24:00 Test Item Value Reference Range Interpretation Comments POCT GP A STREP (test code = negative Negative - Negative 31472-1) [facility] RAPID STREP SCREEN FOR GROUP [id number] 19:24:00 Test Item Value Reference Range Interpretation Comments POCT GP A STREP (test code = negative Negative - Negative 42845-8) [facility] [id number] 00:00:00 Test Item Value Reference Range Interpretation Comments IMP (test code = Electroencephalogram IMP) Report NAME: Romy BernsteinAGE: 19 Year(s) 6 Month(s)DATE OF EE10/12/2019PROCEDURE: ?EEG ? ? EEG#: [id number] PHYSICIAN: Dalia Arreguin MDLOCATION: [facility]NOSIS: Seizure vs PNESPERTINENT MEDICATIONS: ?N/A [...] 44m39s Lab Interpretation Normal (test code = 46155-3) [facility] ULTRASOUND BREAST LIMITED [id number] 13:32:53HISTORY: 2 palpable masses in the left [...] with the patient and hermother.ACR classification: Category II.[facility] URINALYSIS W/O SPECIFIC GRAVITY 2019-08-04 19:35:00 Test [...] code = 3257) 4+ Negative - Negative [facility] URINALYSIS W/O SPECIFIC [id number] 19:35:00 Test Item Value Reference Range Interpretation [...] code = 3257) 4+ Negative - Negative [facility] [id number] 18:57:00 Test Item Value Reference Range Interpretation Comments POCT PREG (test code = 1605) Negative On board controls acceptable with C Yes Line (test code = 3574) POCT PREG LOT # (test code = 3575) POCT PREG TEST DATE (test code = 3576) [id number] 18:57:00 Test Item Value Reference Range Interpretation Comments POCT PREG (test code = 1605) Negative On board controls acceptable with C Yes Line (test code = 3574) POCT PREG LOT # (test code = 3575) POCT PREG TEST DATE (test code = 3576) [facility] [id number] 22:13:00 Test Item Value Reference Range Interpretation Comments URINE CULTURE (test > 100,000 CFU/mL mixed code = 630-4) aerobic organisms - suggests endogenous microbial contamination [facility] [id number] 22:13:00 Test Item Value Reference Range Interpretation Comments URINE CULTURE (test > 100,000 CFU/mL mixed code = 630-4) aerobic organisms - suggests endogenous microbial contamination [facility]
[2022-03-09] MEDS ORDERED: FLUCONAZOLE 100 MG TAB ONE (11:03)
[2022-03-09 11:19] VITALS: TEMP 99
[2022-03-09 11:24] VITALS: BP 112/71; O2SAT 99
== END 2022-03-09 11:12 | disposition home or self-care (01) ==
LOC: ER 10:38
DX: N39.0 Urinary tract infection, site not specified (principal); F17.210 Nicotine dependence, cigarettes, uncomplicated; Z88.8 Allergy status to other drugs, medicaments and biological substances
CPT/HCPCS: 81003; 81025; 99283

== ENCOUNTER 2022-08-07 19:26 | Emergency (ER) | payer OTHER ==
--- OUTSIDE RECORDS SUMMARY | 2022-08-07 19:46 | XMS REPORT | Continuity of Care Document ---
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 Medical (eight) Branch hours as needed for Pain (scale 4-6) (headache) . ibuprofen 2020-0 Yes [id number] 600mg Take 1 U nivers 600 mg 3-02 tablet by ity of tablet 00:00: mouth [place] 00 every 8 Medical (eight) Branch hours as needed for Pain (scale 4-6) (headache) . ibuprofen 2020-0 Yes [id number] 600mg Take 1 U nivers 600 mg 3-02 tablet by ity of tablet 00:00: mouth [place] 00 every 8 Medical (eight) Branch hours as needed for Pain (scale 4-6) (headache) . ibuprofen 2020-0 Yes [id number] 600mg Take 1 U nivers 600 mg 3-02 tablet by ity of tablet 00:00: mouth [place] 00 every 8 Medical (eight) Branch hours as needed for Pain (scale 4-6) (headache) . ibuprofen 2020-0 Yes [id number] 600mg Take 1 U nivers 600 mg 3-02 tablet by ity of tablet 00:00: mouth [place] 00 every 8 Medical (eight) Branch hours as needed for Pain (scale 4-6) (headache) . ibuprofen 2020-0 Yes [id number] 600mg Take 1 U nivers 600 mg 3-02 tablet by ity of tablet 00:00: mouth [place] 00 every 8 Medical (eight) Branch hours as needed for Pain (scale 4-6) (headache) . ibuprofen 2020-0 Yes [id number] 600mg Take 1 U nivers 600 mg 3-02 tablet by ity of tablet 00:00: mouth [place] 00 every 8 Medical (eight) Branch hours as needed for Pain (scale 4-6) (headache) . ibuprofen 2020-0 Yes [id number] 600mg Take 1 U nivers 600 mg 3-02 tablet by ity of tablet 00:00: mouth [place] 00 every 8 Medical (eight) Branch hours as needed for Pain (scale 4-6) (headache) . ibuprofen 2020-0 Yes [id number] 600mg Take 1 U nivers 600 mg 3-02 tablet by ity of tablet 00:00: mouth [place] 00 every 8 Medical (eight) Branch hours as needed for Pain (scale 4-6) (headache) . ibuprofen 2020-0 Yes [id number] 600mg Take 1 U nivers 600 mg 3-02 tablet by ity of tablet 00:00: mouth [place] 00 every 8 Medical (eight) Branch hours as needed for Pain (scale 4-6) (headache) . ibuprofen 2020-0 Yes [id number] 600mg Take 1 U nivers 600 mg 3-02 tablet by ity of tablet 00:00: mouth [place] 00 every 8 Medical (eight) Branch hours as needed for Pain (scale 4-6) (headache) . ibuprofen 2020-0 Yes [id number] 600mg Take 1 U nivers 600 mg 3-02 tablet by ity of tablet 00:00: mouth [place] 00 every 8 Medical (eight) Branch hours as needed for Pain (scale 4-6) (headache) . ibuprofen 2020-0 Yes [id number] 600mg Take 1 U nivers 600 mg 3-02 tablet by ity of tablet 00:00: mouth [place] 00 every 8 Medical (eight) Branch hours as needed for Pain (scale 4-6) (headache) . ibuprofen 2020-0 Yes [id number] 600mg Take 1 U nivers 600 mg 3-02 tablet by ity of tablet 00:00: mouth [place] 00 every 8 Medical (eight) Branch hours as needed for Pain (scale 4-6) (headache) . ibuprofen 2020-0 Yes [id number] 600mg Take 1 U nivers 600 mg 3-02 tablet by ity of tablet 00:00: mouth [place] 00 every 8 Medical (eight) Branch hours as needed for Pain (scale 4-6) (headache) . ibuprofen 2020-0 Yes [id number] 600mg Take 1 U nivers 600 mg 3-02 tablet by ity of tablet 00:00: mouth [place] 00 every 8 Medical (eight) Branch hours as needed for Pain (scale 4-6) (headache) . ibuprofen 2020-0 Yes [id number] 600mg Take 1 U nivers 600 mg 3-02 tablet by ity of tablet 00:00: mouth [place] 00 every 8 Medical (eight) Branch hours as needed for Pain (scale 4-6) (headache) . ibuprofen 2020-0 Yes [id number] 600mg Take 1 U nivers 600 mg 3-02 tablet by ity of tablet 00:00: mouth [place] 00 every 8 Medical (eight) Branch hours as needed for Pain (scale 4-6) (headache) . ibuprofen 2020-0 Yes [id number] 600mg Take 1 U nivers 600 mg 3-02 tablet by ity of tablet 00:00: mouth [place] 00 every 8 Medical (eight) Branch hours as needed for Pain (scale 4-6) (headache) . ibuprofen 2020-0 Yes [id number] 600mg Take 1 U nivers 600 mg 3-02 tablet by ity of tablet 00:00: mouth [place] 00 every 8 Medical (eight) Branch hours as needed for Pain (scale 4-6) (headache) . ibuprofen 2020-0 Yes [id number] 600mg Take 1 U nivers 600 mg 3-02 tablet by ity of tablet 00:00: mouth [place] 00 every 8 Medical (eight) Branch hours as needed for Pain (scale 4-6) (headache) . ibuprofen 2020-0 Yes [id number] 600mg Take 1 U nivers 600 mg 3-02 tablet by ity of tablet 00:00: mouth [place] 00 every 8 Medical (eight) Branch hours as needed for Pain (scale 4-6) (headache) . ibuprofen 2020-0 Yes [id number] 600mg Take 1 U nivers 600 mg 3-02 tablet by ity of tablet 00:00: mouth [place] 00 every 8 Medical (eight) Branch hours as needed for Pain (scale 4-6) (headache) . ibuprofen 2020-0 Yes [id number] 600mg Take 1 U nivers 600 mg 3-02 tablet by ity of tablet 00:00: mouth [place] 00 every 8 Medical (eight) Branch hours as needed for Pain (scale 4-6) (headache) . ibuprofen 2020-0 Yes [id number] 600mg Take 1 U nivers 600 mg 3-02 tablet by ity of tablet 00:00: mouth [place] 00 every 8 Medical (eight) Branch hours as needed for Pain (scale 4-6) (headache) . ibuprofen 2020-0 Yes [id number] 600mg Take 1 U nivers 600 mg 3-02 tablet by ity of tablet 00:00: mouth [place] 00 every 8 Medical (eight) Branch hours as needed for Pain (scale 4-6) (headache) . ibuprofen 2020-0 Yes [id number] 600mg Take 1 [facility] nivers 600 mg 3-02 tablet by ity of tablet 00:00: mouth [place] 00 every 8 Medical (eight) Branch hours as needed for Pain (scale 4-6) (headache) . ibuprofen 2020-0 Yes [id number] 600mg Take 1 [facility] nivers 600 mg 3-02 tablet by ity of tablet 00:00: mouth [place] 00 every 8 Medical (eight) Branch hours as needed for Pain (scale 4-6) (headache) . ibuprofen 2020-0 Yes [id number] 600mg Take 1 [facility] nivers 600 mg 3-02 tablet by ity of tablet 00:00: mouth [place] 00 every 8 Medical (eight) Branch hours as needed for Pain (scale 4-6) (headache) . ibuprofen 2020-0 Yes [id number] 600mg Take 1 U nivers 600 mg 3-02 tablet by ity of tablet 00:00: mouth [place] 00 every 8 Medical (eight) Branch hours as needed for Pain (scale 4-6) (headache) . ibuprofen 2020-0 Yes [id number] 600mg Take 1 U nivers 600 mg 3-02 tablet by ity of tablet 00:00: mouth [place] 00 every 8 Medical (eight) Branch hours as needed for Pain (scale 4-6) (headache) . ibuprofen 2020-0 2020- No [id number] 600mg Take 1 [facility] 600 mg 3-02 12-04 tablet by ity of tablet 00:00: 00:00 mouth [place] 00 :00 every 8 Medical (eight) Branch hours as needed for Pain (scale 4-6) (headache) . ibuprofen 2020-0 2020- No [id number] 600mg Take 1 [facility] 600 mg 3-02 [...] ity of (DEPO-PROVE 23:00: 21:50 lar, ONCE, [place] RA) 00 :00 1 dose, Medical injection Mon Branch 150 mg 05/16/19 at 1700, Routine oxybutynin 2020-0 Yes [id number] 5mg Take 1 U nivers chloride 5 2-11 tablet by ity of mg tablet 00:00: mouth 2 (two) Medical times Branch daily. oxybutynin 2020-0 Yes [id number] 5mg Take 1 U nivers chloride 5 2-11 tablet by ity of mg tablet 00:00: mouth 2 00 (two) Medical times Branch daily. oxybutynin 2020-0 Yes [id number] 5mg Take 1 U nivers chloride 5 2-11 tablet by ity of mg tablet 00:00: mouth 2 [place] 00 (two) Medical times Branch daily. oxybutynin 2020-0 Yes [id number] 5mg Take 1 U nivers chloride 5 2-11 tablet by ity of mg tablet 00:00: mouth (two) Medical times Branch daily. oxybutynin 2020-0 Yes [id number] 5mg Take 1 U nivers chloride 5 2-11 tablet by ity of mg tablet 00:00: mouth (two) Medical times Branch daily. oxybutynin 2020-0 Yes [id number] 5mg Take 1 U nivers chloride 5 2-11 tablet by ity of mg tablet 00:00: mouth (two) Medical times Branch daily. oxybutynin 2020-0 Yes [id number] 5mg Take 1 U nivers chloride 5 2-11 tablet by ity of mg tablet 00:00: mouth (two) Medical times Branch daily. oxybutynin 2020-0 Yes [id number] 5mg Take 1 U nivers chloride 5 2-11 tablet by ity of mg tablet 00:00: mouth (two) Medical times Branch daily. oxybutynin 2020-0 Yes [id number] 5mg Take 1 U nivers chloride 5 2-11 tablet by ity of mg tablet 00:00: mouth (two) Medical times Branch daily. oxybutynin 2020-0 Yes [id number] 5mg Take 1 U nivers chloride 5 2-11 tablet by ity of mg tablet 00:00: mouth (two) Medical times Branch daily. oxybutynin 2020-0 Yes [id number] 5mg Take 1 U nivers chloride 5 2-11 tablet by ity of mg tablet 00:00: mouth (two) Medical times Branch daily. oxybutynin 2020-0 Yes [id number] 5mg Take 1 U nivers chloride 5 2-11 tablet by ity of mg tablet 00:00: mouth (two) Medical times Branch daily. oxybutynin 2020-0 Yes [id number] 5mg Take 1 U nivers chloride 5 2-11 tablet by ity of mg tablet 00:00: mouth (two) Medical times Branch daily. oxybutynin 2020-0 Yes [id number] 5mg Take 1 U nivers chloride 5 2-11 tablet by ity of mg tablet 00:00: mouth 2 00 (two) Medical times Branch daily. oxybutynin 2020-0 Yes [id number] 5mg Take 1 U nivers chloride 5 2-11 tablet by ity of mg tablet 00:00: mouth 2 [place] 00 (two) Medical times Branch daily. oxybutynin 2020-0 Yes [id number] 5mg Take 1 U nivers chloride 5 2-11 tablet by ity of mg tablet 00:00: mouth 2 [place] 00 (two) Medical times Branch daily. oxybutynin 2020-0 Yes [id number] 5mg Take 1 U nivers chloride 5 2-11 tablet by ity of mg tablet 00:00: mouth 2 [place] (two) Medical times Branch daily. oxybutynin 2020-0 2020- No [id number] 5mg Take 1 [facility] chloride 5 2-11 07-16 tablet by ity of mg tablet 00:00: 00:00 mouth 2 [place] 00 :00 (two) Medical times Branch daily. oxybutynin 2020-0 2020- No [id number] 5mg Take 1 [facility] chloride 5 2-11 07-16 tablet by ity of mg tablet 00:00: 00:00 mouth 2 [place] 00 :00 (two) Medical times Branch daily. polyethylen 2018-03 Yes [id number] 1/2 cap [facility] e glycol 2-31 twice ity of (MIRALAX) 00:00: daily [place] 17 Medical gram/dose Branch powder polyethylen 2018-03 Yes [id number] 1/2 cap [facility] e glycol 2-31 twice ity of (MIRALAX) 00:00: daily [place] 17 Medical gram/dose Branch powder polyethylen 2018-03 Yes [id number] 1/2 cap [facility] e glycol 2-31 twice ity of (MIRALAX) 00:00: daily [place] 17 Medical gram/dose Branch powder polyethylen 2018- Yes [id number] 1/2 cap [facility] e glycol 2-31 twice ity of (MIRALAX) 00:00: daily [place] 17 Medical gram/dose Branch powder polyethylen 2018- Yes [id number] 1/2 cap [facility] e glycol 2-31 twice ity of (MIRALAX) 00:00: daily [place] 17 Medical gram/dose Branch powder polyethylen 2018-03 Yes [id number] 1/2 cap [facility] e glycol 2-31 twice ity of (MIRALAX) 00:00: daily [place] 17 Medical gram/dose Branch powder polyethylen 2019- Yes [id number] 1/2 cap [facility] e glycol 2-31 twice ity of (MIRALAX) 00:00: daily [place] 17 Medical gram/dose Branch powder polyethylen 2019- Yes [id number] 1/2 cap [facility] e glycol 2-31 twice ity of (MIRALAX) 00:00: daily [place] 17 Medical gram/dose Branch powder polyethylen 2019- Yes [id number] 1/2 cap [facility] e glycol 2-31 twice ity of (MIRALAX) 00:00: daily [place] 17 Medical gram/dose Branch powder polyethylen 2019- Yes [id number] 1/2 cap [facility] e glycol 2-31 twice ity of (MIRALAX) 00:00: daily [place] 17 Medical gram/dose Branch powder polyethylen 2019- Yes [id number] 1/2 cap [facility] e glycol 2-31 twice ity of (MIRALAX) 00:00: daily [place] 17 Medical gram/dose Branch powder polyethylen 2019- Yes [id number] 1/2 cap [facility] e glycol 2-31 twice ity of (MIRALAX) 00:00: daily [place] 17 Medical gram/dose Branch powder polyethylen 2019- Yes [id number] 1/2 cap [facility] e glycol 2-31 twice ity of (MIRALAX) 00:00: daily [place] 17 Medical gram/dose Branch powder polyethylen 2019- Yes [id number] 1/2 cap [facility] e glycol 2-31 twice ity of (MIRALAX) 00:00: daily [place] 17 Medical gram/dose Branch powder polyethylen 2019- Yes [id number] 1/2 cap [facility] e glycol 2-31 twice ity of (MIRALAX) 00:00: daily [place] 17 Medical gram/dose Branch powder polyethylen 2019- Yes [id number] 1/2 cap [facility] e glycol 2-31 twice ity of (MIRALAX) 00:00: daily [place] 17 Medical gram/dose Branch powder polyethylen 2019- Yes [id number] 1/2 cap [facility] e glycol 2-31 twice ity of (MIRALAX) 00:00: daily [place] 17 00 Medical gram/dose Branch powder polyethylen 2019- Yes [id number] 1/2 cap [facility] e glycol 2-31 twice ity of (MIRALAX) 00:00: daily [place] 17 Medical gram/dose Branch powder polyethylen 2019- Yes [id number] 1/2 cap [facility] e glycol 2-31 twice ity of (MIRALAX) 00:00: daily [place] 17 Medical gram/dose Branch powder polyethylen 2019- Yes [id number] 1/2 cap [facility] e glycol 2-31 twice ity of (MIRALAX) 00:00: daily [place] 17 Medical gram/dose Branch powder polyethylen 2019- Yes [id number] 1/2 cap [facility] e glycol 2-31 twice ity of (MIRALAX) 00:00: daily [place] 17 Medical gram/dose Branch powder polyethylen 2019- Yes [id number] 1/2 cap [facility] e glycol 2-31 twice ity of (MIRALAX) 00:00: daily [place] 17 Medical gram/dose Branch powder polyethylen 2019- Yes [id number] 1/2 cap [facility] e glycol 2-31 twice ity of (MIRALAX) 00:00: daily [place] 17 Medical gram/dose Branch powder polyethylen 2019- Yes [id number] 1/2 cap [facility] e glycol 2-31 twice ity of (MIRALAX) 00:00: daily [place] 17 Medical gram/dose Branch powder polyethylen 2019- Yes [id number] 1/2 cap [facility] e glycol 2-31 twice ity of (MIRALAX) 00:00: daily [place] 17 Medical gram/dose Branch powder polyethylen 2019- Yes [id number] 1/2 cap [facility] e glycol 2-31 twice ity of (MIRALAX) 00:00: daily [place] 17 Medical gram/dose Branch powder polyethylen 2019- Yes [id number] 1/2 cap [facility] e glycol 2-31 twice ity of (MIRALAX) 00:00: daily [place] 17 Medical gram/dose Branch powder polyethylen 2019- Yes [id number] 1/2 cap [facility] e glycol 2-31 twice ity of (MIRALAX) 00:00: daily [place] 17 Medical gram/dose Branch powder polyethylen 2019- Yes [id number] 1/2 cap [facility] e glycol 2-31 twice ity of (MIRALAX) 00:00: daily [place] 17 Medical gram/dose Branch powder polyethylen 2019- Yes [id number] 1/2 cap [facility] e glycol 2-31 twice ity of (MIRALAX) 00:00: daily [place] 17 Medical gram/dose Branch powder polyethylen 2019- Yes [id number] 1/2 cap [facility] e glycol 2-31 twice ity of (MIRALAX) 00:00: daily [place] 17 Medical gram/dose Branch powder polyethylen 2019- Yes [id number] 1/2 cap [facility] e glycol 2-31 twice ity of (MIRALAX) 00:00: daily [place] 17 Medical gram/dose Branch powder polyethylen 2019- Yes [id number] 1/2 cap [facility] e glycol 2-31 twice ity of (MIRALAX) 00:00: daily [place] 17 Medical gram/dose Branch powder polyethylen 2019- Yes [id number] 1/2 cap [facility] e glycol 2-31 twice ity of (MIRALAX) 00:00: daily [place] Medical gram/dose Branch powder polyethylen 2019- Yes [id number] 1/2 cap [facility] e glycol 2-31 twice ity of (MIRALAX) 00:00: daily [place] Medical gram/dose Branch powder polyethylen 2019- Yes [id number] 1/2 cap [facility] e glycol 2-31 twice ity of (MIRALAX) 00:00: daily [place] 17 Medical gram/dose Branch powder polyethylen 2019- Yes [id number] 1/2 cap [facility] e glycol 2-31 twice ity of (MIRALAX) 00:00: daily [place] 17 Medical gram/dose Branch powder polyethylen 2019- Yes [id number] 1/2 cap [facility] e glycol 2-31 twice ity of (MIRALAX) 00:00: daily [place] 17 Medical gram/dose Branch powder polyethylen 2019- Yes [id number] 1/2 cap [facility] e glycol 2-31 twice ity of (MIRALAX) 00:00: daily [place] 17 Medical gram/dose Branch powder polyethylen 2019- Yes [id number] 1/2 cap [facility] e glycol 2-31 twice ity of (MIRALAX) 00:00: daily [place] 17 Medical gram/dose Branch powder polyethylen 2019-2020- No [id number] 1/2 cap [facility] e glycol 04-02 twice ity of (MIRALAX) 00:00: 00:00 daily [place] 17 00 :00 Medical gram/dose Branch powder polyethylen 2018-03- No [id number] 1/2 cap [facility] e glycol 04-02 twice ity of (MIRALAX) 00:00: 00:00 daily [place] [id number] 00 :00 Medical gram/dose Branch powder polyethylen 2018-03- No [id number] 1/2 cap [facility] e glycol 04-02 twice ity of (MIRALAX) 00:00: 00:00 daily [place] [id number] 00 :00 Medical gram/dose Branch powder polyethylen 2018-03- No [id number] 1/2 cap [facility] e glycol 04-02 twice ity of (MIRALAX) 00:00: 00:00 daily [place] [address] 00 :00 Medical gram/dose Branch powder polyethylen 2018-03- No [id number] 1/2 cap [facility] e glycol 04-02 twice ity of (MIRALAX) 00:00: 00:00 daily [place] [id number] 00 :00 Medical gram/dose Branch powder polyethylen 2018-03- No [id number] 1/2 cap [facility] e glycol 04-02 twice ity of (MIRALAX) 00:00: 00:00 daily [place] 17 00 :00 Medical gram/dose Branch powder medroxyPROG 2019- No [id number] 150mg [facility] ESTERone 11-11 ity of (DEPO-PROVE 15:00: 13:54 [place] RA) 00 :00 Medical injection Branch 150 mg medroxyPROG 2019- No [id number] 150mg 150 mg, [facility] ESTERone 11-11 Intramuscu ity of (DEPO-PROVE 15:00: 13:54 lar, ONCE, [place] RA) 00 :00 1 dose, Medical injection Glad[place] Branch 150 mg 11/11/18 at 1000, Routine medroxyPROG 2019- No [id number] 150mg [facility] ESTERone 11-11 ity of (DEPO-PROVE 15:00: 13:54 [place] RA) 00 :00 Medical injection Branch 150 mg medroxyPROG 2019- No [id number] 150mg 150 mg, [facility] ESTERone 11-11 Intramuscu ity of (DEPO-PROVE 15:00: 13:54 lar, ONCE, [place] RA) 00 :00 1 dose, Medical injection [place] Branch 150 mg 11/11/18 at 1000, Routine zonisamide 2018-0 Yes [id number] 200mg Take 2 [facility] 100 mg 4-12 capsules ity of capsule 00:00: by mouth [place] 00 daily. Medical Branch zonisamide 2018- Yes [id number] 200mg Take 2 [facility] 100 mg 4-12 capsules ity of capsule 00:00: by mouth [place] 00 daily. Medical Branch zonisamide 2018- Yes [id number] 200mg Take 2 [facility] 100 mg 4-12 capsules ity of capsule 00:00: by mouth [place] 00 daily. Medical Branch zonisamide Yes [id number] 200mg Take 2 [facility] 100 mg 4-12 capsules ity of capsule 00:00: by mouth [place] 00 daily. Medical Branch zonisamide 2018- Yes [id number] 200mg Take 2 [facility] 100 mg 4-12 capsules ity of capsule 00:00: by mouth [place] 00 daily. Medical Branch zonisamide 2018- Yes [id number] 200mg Take 2 [facility] 100 mg 4-12 capsules ity of capsule 00:00: by mouth [place] 00 daily. Medical Branch zonisamide 2018- Yes [id number] 200mg Take 2 [facility] 100 mg 4-12 capsules ity of capsule 00:00: by mouth [place] 00 daily. Medical Branch zonisamide 2018-0 Yes [id number] 200mg Take 2 [facility] 100 mg 4-12 capsules ity of capsule 00:00: by mouth [place] 00 daily. Medical Branch zonisamide 2018-0 Yes [id number] 200mg Take 2 [facility] 100 mg 4-12 capsules ity of capsule 00:00: by mouth [place] 00 daily. Medical Branch zonisamide 2018-0 Yes [id number] 200mg Take 2 [facility] 100 mg 4-12 capsules ity of capsule 00:00: by mouth [place] 00 daily. Medical Branch zonisamide 2018- Yes [id number] 200mg Take 2 [facility] 100 mg 4-12 capsules ity of capsule 00:00: by mouth [place] 00 daily. Medical Branch zonisamide 2018- Yes [id number] 200mg Take 2 [facility] 100 mg 4-12 capsules ity of capsule 00:00: by mouth [place] 00 daily. Medical Branch zonisamide Yes [id number] 200mg Take 2 [facility] 100 mg 4-12 capsules ity of capsule 00:00: by mouth [place] 00 daily. Medical Branch zonisamide Yes [id number] 200mg Take 2 [facility] 100 mg 4-12 capsules ity of capsule 00:00: by mouth [place] 00 daily. Medical Branch zonisamide Yes [id number] 200mg Take 2 [facility] 100 mg 4-12 capsules ity of capsule 00:00: by mouth [place] 00 daily. Medical Branch zonisamide 2020- No [id number] 200mg Take 2 [facility] 100 mg 4-12 02-11 capsules ity of capsule 00:00: 00:00 by mouth [place] 00 :00 daily. Medical Branch zonisamide 2020- No [id number] 200mg Take 2 [facility] 100 mg 4-12 [...] Completed Unive rsity of PFIZER VACCINE 00:00:00 [facility] SARS-COV-2 COVID-19 2020-07-06 Completed Unive rsity of PFIZER VACCINE 00:00:00 [facility] SARS-COV-2 COVID-19 2020-07-06 Completed Unive rsity of PFIZER VACCINE 00:00:00 [facility] SARS-COV-2 COVID-19 2020-07-06 Completed Unive rsity of PFIZER VACCINE 00:00:00 [facility] SARS-COV-2 COVID-19 2020-07-06 Completed Unive rsity of PFIZER VACCINE 00:00:00 [facility] SARS-COV-2 COVID-19 2020-07-06 Completed Unive rsity of PFIZER VACCINE 00:00:00 [facility] SARS-COV-2 COVID-19 2020-07-06 Completed Unive rsity of PFIZER VACCINE 00:00:00 [facility] SARS-COV-2 COVID-19 2020-07-06 Completed Unive rsity of PFIZER VACCINE 00:00:00 [facility] SARS-COV-2 COVID-19 2020-07-06 Completed Unive rsity of PFIZER VACCINE 00:00:00 [facility] SARS-COV-2 COVID-19 2020-07-06 Completed Unive rsity of PFIZER VACCINE 00:00:00 [facility] SARS-COV-2 COVID-19 2020-07-06 Completed Unive rsity of PFIZER VACCINE 00:00:00 [place] [facility] SARS-COV-2 COVID-19 2020-07-06 Completed Unive rsity of PFIZER VACCINE 00:00:00 [facility] Branch SARS-COV-2 COVID-19 2020-07-06 Completed Unive rsity of PFIZER VACCINE 00:00:00 [facility] Branch SARS-COV-2 COVID-19 2020-07-06 Completed Unive rsity of PFIZER VACCINE 00:00:00 [facility] Branch SARS-COV-2 COVID-19 2020-07-06 Completed Unive rsity of PFIZER VACCINE 00:00:00 [facility] Branch SARS-COV-2 COVID-19 2020-07-06 Completed Unive rsity of PFIZER VACCINE 00:00:00 [facility] Branch SARS-COV-2 COVID-19 2020-07-06 Completed Unive rsity of PFIZER VACCINE 00:00:00 [facility] Branch SARS-COV-2 COVID-19 2020-07-06 Completed Unive rsity of PFIZER VACCINE 00:00:00 [facility] Branch SARS-COV-2 COVID-19 2020-07-06 Completed Unive rsity of PFIZER VACCINE 00:00:00 [facility] Branch SARS-COV-2 COVID-19 2020-07-06 Completed Unive rsity of PFIZER VACCINE 00:00:00 [facility] Branch SARS-COV-2 COVID-19 2020-07-06 Completed Unive rsity of PFIZER VACCINE 00:00:00 [facility] Branch SARS-COV-2 COVID-19 2020-07-06 Completed Unive rsity of PFIZER VACCINE 00:00:00 [facility] Branch SARS-COV-2 COVID-19 2020-07-06 Completed Unive rsity of PFIZER VACCINE 00:00:00 [facility] Branch SARS-COV-2 COVID-19 2020-07-06 Completed Unive rsity of PFIZER VACCINE 00:00:00 [facility] Branch SARS-COV-2 COVID-19 2020-06-15 Completed Unive rsity of PFIZER VACCINE 00:00:00 [facility] Branch SARS-COV-2 COVID-19 2020-06-15 Completed Unive rsity of PFIZER VACCINE 00:00:00 [facility] Branch SARS-COV-2 COVID-19 2020-06-15 Completed Unive rsity of PFIZER VACCINE 00:00:00 [facility] Branch SARS-COV-2 COVID-19 2020-06-15 Completed Unive rsity of PFIZER VACCINE 00:00:00 [facility] Branch SARS-COV-2 COVID-19 2020-06-15 Completed Unive rsity of PFIZER VACCINE 00:00:00 [facility] Branch SARS-COV-2 COVID-19 2020-06-15 Completed Unive rsity of PFIZER VACCINE 00:00:00 [facility] Branch SARS-COV-2 COVID-19 2020-06-15 Completed Unive rsity of PFIZER VACCINE 00:00:00 [facility] Branch SARS-COV-2 COVID-19 2020-06-15 Completed Unive rsity of PFIZER VACCINE 00:00:00 [facility] Branch SARS-COV-2 COVID-19 2020-06-15 Completed Unive rsity of PFIZER VACCINE 00:00:00 [facility] Branch SARS-COV-2 COVID-19 2020-06-15 Completed Unive rsity of PFIZER VACCINE 00:00:00 [facility] Branch SARS-COV-2 COVID-19 2020-06-15 Completed Unive rsity of PFIZER VACCINE 00:00:00 [facility] Branch SARS-COV-2 COVID-19 2020-06-15 Completed Unive rsity of PFIZER VACCINE 00:00:00 [facility] Branch SARS-COV-2 COVID-19 2020-06-15 Completed Unive rsity of PFIZER VACCINE 00:00:00 [facility] Branch SARS-COV-2 COVID-19 2020-06-15 Completed Unive rsity of PFIZER VACCINE 00:00:00 [facility] Branch SARS-COV-2 COVID-19 2020-06-15 Completed Unive rsity of PFIZER VACCINE 00:00:00 [facility] Branch SARS-COV-2 COVID-19 2020-06-15 Completed Unive rsity of PFIZER VACCINE 00:00:00 [facility] Branch SARS-COV-2 COVID-19 2020-06-15 Completed [facility] PFIZER VACCINE 00:00:00 [facility] SARS-COV-2 COVID-19 2020-06-15 Completed [facility] PFIZER VACCINE 00:00:00 [facility] SARS-COV-2 COVID-19 2020-06-15 Completed [facility] PFIZER VACCINE 00:00:00 [facility] SARS-COV-2 COVID-19 2020-06-15 Completed [facility] PFIZER VACCINE 00:00:00 [facility] SARS-COV-2 COVID-19 2020-06-15 Completed [facility] PFIZER VACCINE 00:00:00 [facility] SARS-COV-2 COVID-19 2020-06-15 Completed [facility] PFIZER VACCINE 00:00:00 [facility] SARS-COV-2 COVID-19 2020-06-15 Completed [facility] PFIZER VACCINE 00:00:00 [facility] SARS-COV-2 COVID-19 2020-06-15 Completed [facility] PFIZER VACCINE 00:00:00 [facility] Meningococcal B, OMV 2020-04-16 Completed [facility] ers[facility] of 00:00:00 [facility] Meningococcal B, OMV 2020-04-16 Completed [...] OMV 2020-04-16 Completed [facility] 00:00:00 [facility] Meningococcal B, OMV 2020-04-16 Completed [facility] of 00:00:00 [facility] Meningococcal B, OMV 2020-04-16 Completed [facility] 00:00:00 [facility] Meningococcal B, OMV 2020-04-16 Completed [facility] of 00:00:00 [facility] Meningococcal 2018-10-07 Completed [facility] Polysaccharide 00:00:00 [facility] (groups A, C, Y and Branc h W-135) conjugate vaccine (MCV4P) Meningococcal B, 2018-10-07 Completed [facility] Recombinant 00:00:00 [facility] Meningococcal 2018-10-07 Completed [facility] Polysaccharide 00:00:00 [facility] (groups A, C, Y and Branc h W-135) conjugate vaccine (MCV4P) Meningococcal B, 2018-10-07 Completed [facility] Recombinant 00:00:00 [facility] Meningococcal 2018-10-07 Completed [facility] Polysaccharide 00:00:00 [facility] (groups A, C, Y and Branc h W-135) conjugate vaccine (MCV4P) Meningococcal B, 2018-10-07 Completed [facility] Recombinant 00:00:00 [facility] Meningococcal 2018-10-07 Completed [facility] Polysaccharide 00:00:00 [facility] (groups A, C, Y and Branc h W-135) conjugate vaccine (MCV4P) Meningococcal B, 2018-10-07 Completed [facility] Recombinant 00:00:00 [facility] Meningococcal 2018-10-07 Completed [facility] Polysaccharide 00:00:00 [facility] (groups A, C, Y and Branc h W-135) conjugate vaccine (MCV4P) Meningococcal B, 2018-10-07 Completed [facility] Recombinant 00:00:00 [facility] Meningococcal 2018-10-07 Completed [facility] Polysaccharide 00:00:00 [facility] (groups A, C, Y and Branc h W-135) conjugate vaccine (MCV4P) Meningococcal B, 2018-10-07 Completed [facility] Recombinant 00:00:00 [facility] Meningococcal 2018-10-07 Completed [facility] Polysaccharide 00:00:00 [facility] (groups A, C, Y and Branc h W-135) conjugate vaccine (MCV4P) Meningococcal B, 2018-10-07 Completed [facility] Recombinant 00:00:00 [facility] Meningococcal 2018-10-07 Completed [facility] Polysaccharide 00:00:00 [facility] (groups A, C, Y and Branc h W-135) conjugate vaccine (MCV4P) Meningococcal B, 2018-10-07 Completed [facility] Recombinant 00:00:00 [facility] Meningococcal 2018-10-07 Completed [facility] Polysaccharide 00:00:00 [facility] (groups A, C, Y and Branc h W-135) conjugate vaccine (MCV4P) Meningococcal B, 2018-10-07 Completed [facility] Recombinant 00:00:00 [facility] Meningococcal 2018-10-07 Completed [facility] Polysaccharide 00:00:00 [facility] (groups A, C, Y and Branc h W-135) conjugate vaccine (MCV4P) Meningococcal B, 2018-10-07 Completed [facility] Recombinant 00:00:00 [facility] Meningococcal 2018-10-07 Completed [facility] Polysaccharide 00:00:00 [facility] (groups A, C, Y and Branc h W-135) conjugate vaccine (MCV4P) Meningococcal B, 2018-10-07 Completed [facility] Recombinant 00:00:00 [facility] Meningococcal 2018-10-07 Completed [facility] Polysaccharide 00:00:00 [place] [facility] (groups A, C, Y and Branc h W-135) conjugate vaccine (MCV4P) Meningococcal B, 2018-10-07 Completed [facility] Recombinant 00:00:00 [facility] Meningococcal 2018-10-07 Completed [facility] Polysaccharide 00:00:00 [facility] (groups A, C, Y and Branc h W-135) conjugate vaccine (MCV4P) Meningococcal B, 2018-10-07 Completed [facility] Recombinant 00:00:00 [facility] Meningococcal 2018-10-07 Completed [facility] Polysaccharide 00:00:00 [facility] (groups A, C, Y and Branc h W-135) conjugate vaccine (MCV4P) Meningococcal B, 2018-10-07 Completed [facility] Recombinant 00:00:00 [facility] Meningococcal 2018-10-07 Completed [facility] Polysaccharide 00:00:00 [facility] (groups A, C, Y and Branc h W-135) conjugate vaccine (MCV4P) Meningococcal 2018-10-07 Completed [facility] Polysaccharide 00:00:00 [facility] (groups A, C, Y and Branc h W-135) conjugate vaccine (MCV4P) Meningococcal B, 2018-10-07 Completed [facility] Recombinant 00:00:00 [facility] Meningococcal B, 2018-10-07 Completed [facility] Recombinant 00:00:00 [facility] Meningococcal 2018-10-07 Completed [facility] Polysaccharide 00:00:00 [facility] (groups A, C, Y and Branc h W-135) conjugate vaccine (MCV4P) Meningococcal B, 2018-10-07 Completed [facility] Recombinant 00:00:00 [facility] Meningococcal 2018-10-07 Completed [facility] Polysaccharide 00:00:00 [place] [facility] (groups A, C, Y and Branc h W-135) conjugate vaccine (MCV4P) Meningococcal B, 2018-10-07 Completed [facility] Recombinant 00:00:00 [facility] Meningococcal 2018-10-07 Completed [facility] Polysaccharide 00:00:00 [place] [facility] (groups A, C, Y and Branc h W-135) conjugate vaccine (MCV4P) Meningococcal B, 2018-10-07 Completed [facility] Recombinant 00:00:00 [facility] Meningococcal 2018-10-07 Completed [facility] Polysaccharide 00:00:00 [place] [facility] (groups A, C, Y and Branc h W-135) conjugate vaccine (MCV4P) Meningococcal B, 2018-10-07 Completed [facility] Recombinant 00:00:00 [facility] Meningococcal 2018-10-07 Completed [facility] Polysaccharide 00:00:00 [place] [facility] (groups A, C, Y and Branc h W-135) conjugate vaccine (MCV4P) Meningococcal B, 2018-10-07 Completed [facility] Recombinant 00:00:00 [facility] Meningococcal 2018-10-07 Completed [facility] Polysaccharide 00:00:00 [facility] (groups A, C, Y and Branc h W-135) conjugate vaccine (MCV4P) Meningococcal B, 2018-10-07 Completed [facility] Recombinant 00:00:00 [facility] Meningococcal 2018-10-07 Completed [facility] Polysaccharide 00:00:00 [place] [facility] (groups A, C, Y and Branc h W-135) conjugate vaccine (MCV4P) Meningococcal B, 2018-10-07 Completed [facility] Recombinant 00:00:00 [facility] Meningococcal 2018-10-07 Completed [facility] Polysaccharide 00:00:00 [place] [facility] (groups A, C, Y and Branc h W-135) conjugate vaccine (MCV4P) Meningococcal B, 2018-10-07 Completed [facility] Recombinant 00:00:00 [facility] Meningococcal 2018-10-07 Completed [facility] Polysaccharide 00:00:00 [place] [facility] (groups A, C, Y and Branc h W-135) conjugate vaccine (MCV4P) Meningococcal B, 2018-10-07 Completed [facility] Recombinant 00:00:00 [facility] Meningococcal 2018-10-07 Completed [facility] Polysaccharide 00:00:00 [place] [facility] (groups A, C, Y and Branc h W-135) conjugate vaccine (MCV4P) Meningococcal B, 2018-10-07 Completed [facility] Recombinant 00:00:00 [facility] Meningococcal 2018-10-07 Completed [facility] Polysaccharide 00:00:00 [place] [facility] (groups A, C, Y and Branc h W-135) conjugate vaccine (MCV4P) Meningococcal B, 2018-10-07 Completed [facility] Recombinant 00:00:00 [facility] Meningococcal 2018-10-07 Completed [facility] Polysaccharide 00:00:00 [place] [facility] (groups A, C, Y and Branc h W-135) conjugate vaccine (MCV4P) Meningococcal B, 2018-10-07 Completed [facility] Recombinant 00:00:00 [facility] Meningococcal 2018-10-07 Completed [facility] Polysaccharide 00:00:00 [facility] (groups A, C, Y and Branc h W-135) conjugate vaccine (MCV4P) Meningococcal B, 2018-10-07 Completed [facility] Recombinant 00:00:00 [facility] Meningococcal 2018-10-07 Completed [facility] Polysaccharide 00:00:00 [facility] (groups A, C, Y and Branc h W-135) conjugate vaccine (MCV4P) Meningococcal B, 2018-10-07 Completed [facility] Recombinant 00:00:00 [facility] Meningococcal 2018-10-07 Completed [facility] Polysaccharide 00:00:00 [facility] (groups A, C, Y and Branc h W-135) conjugate vaccine (MCV4P) Meningococcal B, 2018-10-07 Completed [facility] Recombinant 00:00:00 [facility] Meningococcal 2018-10-07 Completed [facility] Polysaccharide 00:00:00 [place] [facility] (groups A, C, Y and Branc h W-135) conjugate vaccine (MCV4P) Meningococcal B, 2018-10-07 Completed [facility] Recombinant 00:00:00 [facility] Meningococcal 2018-10-07 Completed [facility] Polysaccharide 00:00:00 [facility] (groups A, C, Y and Branc h W-135) conjugate vaccine (MCV4P) Meningococcal B, 2018-10-07 Completed [facility] Recombinant 00:00:00 [facility] Meningococcal 2018-10-07 Completed [facility] Polysaccharide 00:00:00 [place] [facility] (groups A, C, Y and Branc h W-135) conjugate vaccine (MCV4P) Meningococcal B, 2018-10-07 Completed [facility] Recombinant 00:00:00 [facility] Meningococcal 2018-10-07 Completed [facility] Polysaccharide 00:00:00 [place] [facility] (groups A, C, Y and Branc h W-135) conjugate vaccine (MCV4P) Meningococcal B, 2018-10-07 Completed [facility] Recombinant 00:00:00 [facility] Meningococcal 2018-10-07 Completed [facility] Polysaccharide 00:00:00 [place] [facility] (groups A, C, Y and Branc h W-135) conjugate vaccine (MCV4P) Meningococcal B, 2018-10-07 Completed [facility] Recombinant 00:00:00 [facility] Meningococcal 2018-10-07 Completed [facility] Polysaccharide 00:00:00 [facility] (groups A, C, Y and Branc h W-135) conjugate vaccine (MCV4P) Meningococcal B, 2018-10-07 Completed [facility] Recombinant 00:00:00 [facility] Meningococcal 2018-10-07 Completed [facility] Polysaccharide 00:00:00 [place] [facility] (groups A, C, Y and Branc h W-135) conjugate vaccine (MCV4P) Meningococcal B, 2018-10-07 Completed [facility] Recombinant 00:00:00 [facility] Meningococcal 2018-10-07 Completed [facility] Polysaccharide 00:00:00 [place] [facility] (groups A, C, Y and Branc h W-135) conjugate vaccine (MCV4P) Meningococcal B, 2018-10-07 Completed [facility] Recombinant 00:00:00 [facility] Meningococcal 2018-10-07 Completed [facility] Polysaccharide 00:00:00 [place] [facility] (groups A, C, Y and Branc h W-135) conjugate vaccine (MCV4P) Meningococcal B, 2018-10-07 Completed [facility] Recombinant 00:00:00 [facility] Meningococcal 2018-10-07 Completed [facility] Polysaccharide 00:00:00 [place] [facility] (groups A, C, Y and Branc h W-135) conjugate vaccine (MCV4P) Meningococcal B, 2018-10-07 Completed [facility] Recombinant 00:00:00 [facility] Meningococcal 2018-10-07 Completed [facility] Polysaccharide 00:00:00 [place] [facility] (groups A, C, Y and Branc h W-135) conjugate vaccine (MCV4P) Meningococcal B, 2018-10-07 Completed [facility] Recombinant 00:00:00 [facility] Meningococcal 2018-10-07 Completed [facility] Polysaccharide 00:00:00 [place] [facility] (groups A, C, Y and Branc h W-135) conjugate vaccine (MCV4P) Meningococcal B, 2018-10-07 Completed [facility] Recombinant 00:00:00 [facility] Meningococcal 2018-10-07 Completed [facility] Polysaccharide 00:00:00 [place] [facility] (groups A, C, Y and Branc h W-135) conjugate vaccine (MCV4P) Meningococcal B, 2018-10-07 Completed [facility] Recombinant 00:00:00 [facility] Meningococcal 2018-10-07 Completed [facility] Polysaccharide 00:00:00 [place] [facility] (groups A, C, Y and Branc h W-135) conjugate vaccine (MCV4P) Meningococcal B, 2018-10-07 Completed [facility] Recombinant 00:00:00 [facility] Meningococcal 2018-10-07 Completed [facility] Polysaccharide 00:00:00 [place] [facility] (groups A, C, Y and Branc h W-135) conjugate vaccine (MCV4P) Meningococcal B, 2018-10-07 Completed [facility] Recombinant 00:00:00 [facility] Meningococcal 2018-10-07 Completed [facility] Polysaccharide 00:00:00 [place] [facility] (groups A, C, Y and Branc h W-135) conjugate vaccine (MCV4P) Meningococcal B, 2018-10-07 Completed [facility] Recombinant 00:00:00 [facility] Meningococcal 2018-10-07 Completed [facility] Polysaccharide 00:00:00 [place] [facility] (groups A, C, Y and Branc h W-135) conjugate vaccine (MCV4P) Meningococcal B, 2018-10-07 Completed [facility] Recombinant 00:00:00 [facility] Meningococcal 2018-10-07 Completed [facility] Polysaccharide 00:00:00 [place] [facility] (groups A, C, Y and Branc h W-135) conjugate vaccine (MCV4P) Meningococcal B, 2018-10-07 Completed [facility] Recombinant 00:00:00 [facility] Meningococcal 2018-10-07 Completed [facility] Polysaccharide 00:00:00 [place] [facility] (groups A, C, Y and Branc h W-135) conjugate vaccine (MCV4P) Meningococcal B, 2018-10-07 Completed [facility] Recombinant 00:00:00 [facility] Meningococcal 2018-10-07 Completed [facility] Polysaccharide 00:00:00 [place] [facility] (groups A, C, Y and Branc h W-135) conjugate vaccine (MCV4P) Meningococcal B, 2018-10-07 Completed [facility] Recombinant 00:00:00 [facility] Meningococcal 2018-10-07 Completed [facility] Polysaccharide 00:00:00 [place] [facility] (groups A, C, Y and Branc h W-135) conjugate vaccine (MCV4P) Meningococcal B, 2018-10-07 Completed [facility] Recombinant 00:00:00 [facility] Meningococcal 2018-10-07 Completed [facility] Polysaccharide 00:00:00 [place] [facility] (groups A, C, Y and Branc h W-135) conjugate vaccine (MCV4P) Meningococcal 2018-10-07 Completed [facility] Polysaccharide 00:00:00 [place] [facility] (groups A, C, Y and Branc h W-135) conjugate vaccine (MCV4P) Meningococcal B, 2018-10-07 Completed [facility] Recombinant 00:00:00 [facility] Meningococcal B, 2018-10-07 Completed [facility] Recombinant 00:00:00 [facility] Meningococcal 2018-10-07 Completed [facility] Polysaccharide 00:00:00 [place] [facility] (groups A, C, Y and Branc h W-135) conjugate vaccine (MCV4P) Meningococcal B, 2018-10-07 Completed [facility] Recombinant 00:00:00 [facility] Meningococcal 2018-10-07 Completed [facility] Polysaccharide 00:00:00 [place] [facility] (groups A, C, Y and Branc h W-135) conjugate vaccine (MCV4P) Meningococcal B, 2018-10-07 Completed [facility] Recombinant 00:00:00 [facility] Meningococcal 2018-10-07 Completed [facility] Polysaccharide 00:00:00 [place] [facility] (groups A, C, Y and Branc h W-135) conjugate vaccine (MCV4P) Meningococcal B, 2018-10-07 Completed [facility] Recombinant 00:00:00 [facility] Meningococcal 2018-10-07 Completed [facility] Polysaccharide 00:00:00 [place] [facility] (groups A, C, Y and Branc h W-135) conjugate vaccine (MCV4P) Meningococcal B, 2018-10-07 Completed [facility] Recombinant 00:00:00 [facility] Meningococcal 2018-10-07 Completed [facility] Polysaccharide 00:00:00 [place] [facility] (groups A, C, Y and Branc h W-135) conjugate vaccine (MCV4P) Meningococcal B, 2018-10-07 Completed [facility] Recombinant 00:00:00 [facility] Meningococcal 2018-10-07 Completed [facility] Polysaccharide 00:00:00 [place] [facility] (groups A, C, Y and Branc h W-135) conjugate vaccine (MCV4P) Meningococcal B, 2018-10-07 Completed [facility] Recombinant 00:00:00 [facility] Meningococcal 2018-10-07 Completed [facility] Polysaccharide 00:00:00 [place] [facility] (groups A, C, Y and Branc h W-135) conjugate vaccine (MCV4P) Meningococcal B, 2018-10-07 Completed [facility] Recombinant 00:00:00 [facility] Meningococcal 2018-10-07 Completed [facility] Polysaccharide 00:00:00 [place] [facility] (groups A, C, Y and Branc h W-135) conjugate vaccine (MCV4P) Meningococcal B, 2018-10-07 Completed [facility] Recombinant 00:00:00 [facility] Meningococcal 2018-10-07 Completed [facility] Polysaccharide 00:00:00 [place] [facility] (groups A, C, Y and Branc h W-135) conjugate vaccine (MCV4P) Meningococcal B, 2018-10-07 Completed [facility] Recombinant 00:00:00 [facility] Meningococcal 2018-10-07 Completed [facility] Polysaccharide 00:00:00 [place] [facility] (groups A, C, Y and Branc h W-135) conjugate vaccine (MCV4P) Meningococcal B, 2018-10-07 Completed [facility] Recombinant 00:00:00 [facility] Meningococcal 2018-10-07 Completed [facility] Polysaccharide 00:00:00 [place] [facility] (groups A, C, Y and Branc h W-135) conjugate vaccine (MCV4P) Meningococcal B, 2018-10-07 Completed [facility] Recombinant 00:00:00 [facility] Meningococcal 2018-10-07 Completed [facility] Polysaccharide 00:00:00 [place] [facility] (groups A, C, Y and Branc h W-135) conjugate vaccine (MCV4P) Meningococcal B, 2018-10-07 Completed [facility] Recombinant 00:00:00 [facility] Meningococcal 2018-10-07 Completed [facility] Polysaccharide 00:00:00 [place] [facility] (groups A, C, Y and Branc h W-135) conjugate vaccine (MCV4P) Meningococcal B, 2018-10-07 Completed [facility] Recombinant 00:00:00 [facility] Meningococcal 2018-10-07 Completed [facility] Polysaccharide 00:00:00 [place] [facility] (groups A, C, Y and Branc h W-135) conjugate vaccine (MCV4P) Meningococcal B, 2018-10-07 Completed [facility] Recombinant 00:00:00 [facility] Meningococcal 2018-10-07 Completed [facility] Polysaccharide 00:00:00 [place] [facility] (groups A, C, Y and Branc h W-135) conjugate vaccine (MCV4P) Meningococcal B, 2018-10-07 Completed [facility] Recombinant 00:00:00 [facility] Meningococcal 2018-10-07 Completed [facility] Polysaccharide 00:00:00 [place] [facility] (groups A, C, Y and Branc h W-135) conjugate vaccine (MCV4P) Meningococcal B, 2018-10-07 Completed [facility] Recombinant 00:00:00 [facility] Meningococcal 2018-10-07 Completed [facility] Polysaccharide 00:00:00 [place] [facility] (groups A, C, Y and Branc h W-135) conjugate vaccine (MCV4P) Meningococcal B, 2018-10-07 Completed [facility] Recombinant 00:00:00 [facility] Meningococcal 2018-10-07 Completed [facility] Polysaccharide 00:00:00 [place] [facility] (groups A, C, Y and Branc h W-135) conjugate vaccine (MCV4P) Meningococcal B, 2018-10-07 Completed [facility] Recombinant 00:00:00 [facility] Meningococcal 2018-10-07 Completed [facility] Polysaccharide 00:00:00 [place] [facility] (groups A, C, Y and Branc h W-135) conjugate vaccine (MCV4P) Meningococcal B, 2018-10-07 Completed [facility] Recombinant 00:00:00 [facility] Meningococcal 2018-10-07 Completed [facility] Polysaccharide 00:00:00 [place] [facility] (groups A, C, Y and Branc h W-135) conjugate vaccine (MCV4P) Meningococcal B, 2018-10-07 Completed [facility] Recombinant 00:00:00 [facility] Meningococcal 2018-10-07 Completed [facility] Polysaccharide 00:00:00 [place] [facility] (groups A, C, Y and Branc h W-135) conjugate vaccine (MCV4P) Meningococcal B, 2018-10-07 Completed [facility] Recombinant 00:00:00 [facility] Meningococcal 2018-10-07 Completed [facility] Polysaccharide 00:00:00 [place] [facility] (groups A, C, Y and Branc h W-135) conjugate vaccine (MCV4P) Meningococcal B, 2018-10-07 Completed [facility] Recombinant 00:00:00 [facility] Meningococcal 2018-10-07 Completed [facility] Polysaccharide 00:00:00 [place] [facility] (groups A, C, Y and Branc h W-135) conjugate vaccine (MCV4P) Meningococcal B, 2018-10-07 Completed [facility] Recombinant 00:00:00 [facility] Meningococcal 2018-10-07 Completed [facility] Polysaccharide 00:00:00 [place] [facility] (groups A, C, Y and Branc h W-135) conjugate vaccine (MCV4P) Meningococcal B, 2018-10-07 Completed [facility] Recombinant 00:00:00 [facility] Meningococcal 2018-10-07 Completed [facility] Polysaccharide 00:00:00 [place] [facility] (groups A, C, Y and Branc h W-135) conjugate vaccine (MCV4P) Meningococcal B, 2018-10-07 Completed [facility] Recombinant 00:00:00 [facility] Meningococcal 2018-10-07 Completed [facility] Polysaccharide 00:00:00 [place] [facility] (groups A, C, Y and Branc h W-135) conjugate vaccine (MCV4P) Meningococcal B, 2018-10-07 Completed [facility] Recombinant 00:00:00 [facility] Meningococcal 2018-10-07 Completed [facility] Polysaccharide 00:00:00 [place] [facility] (groups A, C, Y and Branc h W-135) conjugate vaccine (MCV4P) Meningococcal B, 2018-10-07 Completed [facility] Recombinant 00:00:00 [facility] Meningococcal 2018-10-07 Completed [facility] Polysaccharide 00:00:00 [place] [facility] (groups A, C, Y and Branc h W-135) conjugate vaccine (MCV4P) Meningococcal B, 2018-10-07 Completed [facility] Recombinant 00:00:00 [facility] Meningococcal 2018-10-07 Completed [facility] Polysaccharide 00:00:00 [place] [facility] (groups A, C, Y and Branc h W-135) conjugate vaccine (MCV4P) Meningococcal B, 2018-10-07 Completed [facility] Recombinant 00:00:00 [facility] Meningococcal 2018-10-07 Completed [facility] Polysaccharide 00:00:00 [place] [facility] (groups A, C, Y and Branc h W-135) conjugate vaccine (MCV4P) Meningococcal B, 2018-10-07 Completed [facility] Recombinant 00:00:00 [facility] Meningococcal 2018-10-07 Completed [facility] Polysaccharide 00:00:00 [place] [facility] (groups A, C, Y and Branc h W-135) conjugate vaccine (MCV4P) Meningococcal B, 2018-10-07 Completed [facility] Recombinant 00:00:00 [facility] Meningococcal 2018-10-07 Completed [facility] Polysaccharide 00:00:00 [place] [facility] (groups A, C, Y and Branc h W-135) conjugate vaccine (MCV4P) Meningococcal B, 2018-10-07 Completed [facility] Recombinant 00:00:00 [facility] Meningococcal 2018-10-07 Completed [facility] Polysaccharide 00:00:00 [place] [facility] (groups A, C, Y and Branc h W-135) conjugate vaccine (MCV4P) Meningococcal B, 2018-10-07 Completed [facility] Recombinant 00:00:00 [facility] Meningococcal 2018-10-07 Completed [facility] Polysaccharide 00:00:00 [place] [facility] (groups A, C, Y and Branc h W-135) conjugate vaccine (MCV4P) Meningococcal B, 2018-10-07 Completed [facility] Recombinant 00:00:00 [facility] Influenza Virus 2018-04-06 Completed Univers[facility] [...] of Vaccine Quad .5 mL IM 00:00:00 [facility] Influenza Virus [...] of Vaccine Quad .5 mL IM 00:00:00 [facility] Influenza Virus [...] Varicella 2013-05-05 Completed [facility] (varivax)(chicken 00:00:00 [place] [facility] pox) [facility] Meningococcal 2013-04-18 Completed [facility] Polysaccharide 00:00:00 [place] [facility] (groups A, C, Y and Branc h W-135) conjugate vaccine (MCV4P) Tdap 2013-04-18 Completed [facility] 00:00:00 [facility] Meningococcal 2013-04-18 Completed [facility] Polysaccharide 00:00:00 [place] [facility] (groups A, C, Y and Branc h W-135) conjugate vaccine (MCV4P) Meningococcal 2013-04-18 Completed [facility] Polysaccharide 00:00:00 [place] [facility] (groups A, C, Y and Branc h W-135) conjugate vaccine (MCV4P) Tdap 2013-04-18 Completed [facility] 00:00:00 [facility] Meningococcal 2013-04-18 Completed [facility] Polysaccharide 00:00:00 [place] [facility] (groups A, C, Y and Branc h W-135) conjugate vaccine (MCV4P) Tdap 2013-04-18 Completed [facility] 00:00:00 [facility] Tdap 2013-04-18 Completed [facility] 00:00:00 [facility] Meningococcal 2013-04-18 Completed [facility] Polysaccharide 00:00:00 [place] [facility] (groups A, C, Y and Branc h W-135) conjugate vaccine (MCV4P) Tdap 2013-04-18 Completed [facility] 00:00:00 [facility] Meningococcal 2013-04-18 Completed [facility] Polysaccharide 00:00:00 [place] [facility] (groups A, C, Y and Branc h W-135) conjugate vaccine (MCV4P) Tdap 2013-04-18 Completed [facility] 00:00:00 [facility] Meningococcal 2013-04-18 Completed [facility] Polysaccharide 00:00:00 [place] [facility] (groups A, C, Y and Branc h W-135) conjugate vaccine (MCV4P) Tdap 2013-04-18 Completed [facility] 00:00:00 [facility] Meningococcal 2013-04-18 Completed [facility] Polysaccharide 00:00:00 [place] [facility] (groups A, C, Y and Branc h W-135) conjugate vaccine (MCV4P) Tdap 2013-04-18 Completed [facility] 00:00:00 [facility] Meningococcal 2013-04-18 Completed [facility] Polysaccharide 00:00:00 [place] [facility] (groups A, C, Y and Branc h W-135) conjugate vaccine (MCV4P) Tdap 2013-04-18 Completed [facility] 00:00:00 [facility] Meningococcal 2013-04-18 Completed [facility] Polysaccharide 00:00:00 [place] [facility] (groups A, C, Y and Branc h W-135) conjugate vaccine (MCV4P) TDAP 2013-04-18 Completed [facility] 00:00:00 [facility] Meningococcal 2013-04-18 Completed [facility] Polysaccharide 00:00:00 [place] [facility] (groups A, C, Y and Branc h W-135) conjugate vaccine (MCV4P) TDAP 2013-04-18 Completed [facility] 00:00:00 [facility] Meningococcal 2013-04-18 Completed [facility] Polysaccharide 00:00:00 [place] [facility] (groups A, C, Y and Branc h W-135) conjugate vaccine (MCV4P) Meningococcal 2013-04-18 Completed [facility] Polysaccharide 00:00:00 [place] [facility] (groups A, C, Y and Branc h W-135) conjugate vaccine (MCV4P) TDAP 2013-04-18 Completed [facility] 00:00:00 [facility] Meningococcal 2013-04-18 Completed [facility] Polysaccharide 00:00:00 [place] [facility] (groups A, C, Y and Branc h W-135) conjugate vaccine (MCV4P) TDAP 2013-04-18 Completed [facility] 00:00:00 [facility] Tdap 2013-04-18 Completed [facility] 00:00:00 [facility] Meningococcal 2013-04-18 Completed [facility] Polysaccharide 00:00:00 [place] [facility] (groups A, C, Y and Branc h W-135) conjugate vaccine (MCV4P) TDAP 2013-04-18 Completed [facility] 00:00:00 [facility] Meningococcal 2013-04-18 Completed [facility] Polysaccharide 00:00:00 [place] [facility] (groups A, C, Y and Branc h W-135) conjugate vaccine (MCV4P) TDAP 2013-04-18 Completed [facility] 00:00:00 [facility] Meningococcal 2013-04-18 Completed [facility] Polysaccharide 00:00:00 [place] [facility] (groups A, C, Y and Branc h W-135) conjugate vaccine (MCV4P) TDAP 2013-04-18 Completed [facility] 00:00:00 [facility] Meningococcal 2013-04-18 Completed [facility] Polysaccharide 00:00:00 [place] [facility] (groups A, C, Y and Branc h W-135) conjugate vaccine (MCV4P) TDAP 2013-04-18 Completed [facility] 00:00:00 [facility] Meningococcal 2013-04-18 Completed [facility] Polysaccharide 00:00:00 [place] [facility] (groups A, C, Y and Branc h W-135) conjugate vaccine (MCV4P) TDAP 2013-04-18 Completed [facility] 00:00:00 [facility] Meningococcal 2013-04-18 Completed [facility] Polysaccharide 00:00:00 [place] [facility] (groups A, C, Y and Branc h W-135) conjugate vaccine (MCV4P) TDAP 2013-04-18 Completed [facility] 00:00:00 [facility] Meningococcal 2013-04-18 Completed [facility] Polysaccharide 00:00:00 [place] [facility] (groups A, C, Y and Branc h W-135) conjugate vaccine (MCV4P) TDAP 2013-04-18 Completed [facility] 00:00:00 [facility] Meningococcal 2013-04-18 Completed [facility] Polysaccharide 00:00:00 [place] [facility] (groups A, C, Y and Branc h W-135) conjugate vaccine (MCV4P) TDAP 2013-04-18 Completed [facility] 00:00:00 [facility] Meningococcal 2013-04-18 Completed [facility] Polysaccharide 00:00:00 [place] [facility] (groups A, C, Y and Branc h W-135) conjugate vaccine (MCV4P) TDAP 2013-04-18 Completed [facility] 00:00:00 [facility] Meningococcal 2013-04-18 Completed [facility] Polysaccharide 00:00:00 [place] [facility] (groups A, C, Y and Branc h W-135) conjugate vaccine (MCV4P) Meningococcal 2013-04-18 Completed [facility] Polysaccharide 00:00:00 [place] [facility] (groups A, C, Y and Branc h W-135) conjugate vaccine (MCV4P) TDAP 2013-04-18 Completed [facility] 00:00:00 [facility] Meningococcal 2013-04-18 Completed [facility] Polysaccharide 00:00:00 [place] [facility] (groups A, C, Y and Branc h W-135) conjugate vaccine (MCV4P) Tdap 2013-04-18 Completed [facility] 00:00:00 [facility] TDAP 2013-04-18 Completed [facility] 00:00:00 [facility] Meningococcal 2013-04-18 Completed [facility] Polysaccharide 00:00:00 [place] [facility] (groups A, C, Y and Branc h W-135) conjugate vaccine (MCV4P) TDAP 2013-04-18 Completed [facility] 00:00:00 [facility] Meningococcal 2013-04-18 Completed [facility] Polysaccharide 00:00:00 [place] [facility] (groups A, C, Y and Branc h W-135) conjugate vaccine (MCV4P) TDAP 2013-04-18 Completed [facility] 00:00:00 [facility] Meningococcal 2013-04-18 Completed [facility] Polysaccharide 00:00:00 [place] [facility] (groups A, C, Y and Branc h W-135) conjugate vaccine (MCV4P) TDAP 2013-04-18 Completed [facility] 00:00:00 [facility] Meningococcal 2013-04-18 Completed [facility] Polysaccharide 00:00:00 [place] [facility] (groups A, C, Y and Branc h W-135) conjugate vaccine (MCV4P) TDAP 2013-04-18 Completed [facility] 00:00:00 [facility] Meningococcal 2013-04-18 Completed [facility] Polysaccharide 00:00:00 [place] [facility] (groups A, C, Y and Branc h W-135) conjugate vaccine (MCV4P) TDAP 2013-04-18 Completed [facility] 00:00:00 [facility] Meningococcal 2013-04-18 Completed [facility] Polysaccharide 00:00:00 [place] [facility] (groups A, C, Y and Branc h W-135) conjugate vaccine (MCV4P) TDAP 2013-04-18 Completed [facility] 00:00:00 [facility] Meningococcal 2013-04-18 Completed [facility] Polysaccharide 00:00:00 [place] [facility] (groups A, C, Y and Branc h W-135) conjugate vaccine (MCV4P) Meningococcal 2013-04-18 Completed [facility] Polysaccharide 00:00:00 [place] [facility] (groups A, C, Y and Branc h W-135) conjugate vaccine (MCV4P) TDAP 2013-04-18 Completed [facility] 00:00:00 [facility] Tdap 2013-04-18 Completed [facility] 00:00:00 [facility] Meningococcal 2013-04-18 Completed [facility] Polysaccharide 00:00:00 [place] [facility] (groups A, C, Y and Branc h W-135) conjugate vaccine (MCV4P) TDAP 2013-04-18 Completed [facility] 00:00:00 [facility] Meningococcal 2013-04-18 Completed [facility] Polysaccharide 00:00:00 [place] [facility] (groups A, C, Y and Branc h W-135) conjugate vaccine (MCV4P) TDAP 2013-04-18 Completed [facility] 00:00:00 [facility] Meningococcal 2013-04-18 Completed [facility] Polysaccharide 00:00:00 [place] [facility] (groups A, C, Y and Branc h W-135) conjugate vaccine (MCV4P) TDAP 2013-04-18 Completed [facility] 00:00:00 [facility] Meningococcal 2013-04-18 Completed [facility] Polysaccharide 00:00:00 [place] [facility] (groups A, C, Y and Branc h W-135) conjugate vaccine (MCV4P) TDAP 2013-04-18 Completed [facility] 00:00:00 [facility] Meningococcal 2013-04-18 Completed [facility] Polysaccharide 00:00:00 [place] [facility] (groups A, C, Y and Branc h W-135) conjugate vaccine (MCV4P) TDAP 2013-04-18 Completed [facility] 00:00:00 [facility] Meningococcal 2013-04-18 Completed [facility] Polysaccharide 00:00:00 [place] [facility] (groups A, C, Y and Branc h W-135) conjugate vaccine (MCV4P) TDAP 2013-04-18 Completed [facility] 00:00:00 [facility] Meningococcal 2013-04-18 Completed [facility] Polysaccharide 00:00:00 [place] [facility] (groups A, C, Y and Branc h W-135) conjugate vaccine (MCV4P) TDAP 2013-04-18 Completed [facility] 00:00:00 [facility] Meningococcal 2013-04-18 Completed [facility] Polysaccharide 00:00:00 [place] [facility] (groups A, C, Y and Branc h W-135) conjugate vaccine (MCV4P) TDAP 2013-04-18 Completed [facility] 00:00:00 [facility] Meningococcal 2013-04-18 Completed [facility] Polysaccharide 00:00:00 [place] [facility] (groups A, C, Y and Branc h W-135) conjugate vaccine (MCV4P) Meningococcal 2013-04-18 Completed [facility] Polysaccharide 00:00:00 [place] [facility] (groups A, C, Y and Branc h W-135) conjugate vaccine (MCV4P) TDAP 2013-04-18 Completed [facility] 00:00:00 [facility] Meningococcal 2013-04-18 Completed [facility] Polysaccharide 00:00:00 [place] [facility] (groups A, C, Y and Branc h W-135) conjugate vaccine (MCV4P) TDAP 2013-04-18 Completed [facility] 00:00:00 [facility] Tdap 2013-04-18 Completed [facility] 00:00:00 [facility] Meningococcal 2013-04-18 Completed [facility] Polysaccharide 00:00:00 [place] [facility] (groups A, C, Y and Branc h W-135) conjugate vaccine (MCV4P) TDAP 2013-04-18 Completed [facility] 00:00:00 [facility] Meningococcal 2013-04-18 Completed [facility] Polysaccharide 00:00:00 [place] [facility] (groups A, C, Y and Branc h W-135) conjugate vaccine (MCV4P) TDAP 2013-04-18 Completed [facility] 00:00:00 [facility] Meningococcal 2013-04-18 Completed [facility] Polysaccharide 00:00:00 [place] [facility] (groups A, C, Y and Branc h W-135) conjugate vaccine (MCV4P) TDAP 2013-04-18 Completed [facility] 00:00:00 [facility] Meningococcal 2013-04-18 Completed [facility] Polysaccharide 00:00:00 [place] [facility] (groups A, C, Y and Branc h W-135) conjugate vaccine (MCV4P) TDAP 2013-04-18 Completed [facility] 00:00:00 [facility] Meningococcal 2013-04-18 Completed [facility] Polysaccharide 00:00:00 [place] [facility] (groups A, C, Y and Branc h W-135) conjugate vaccine (MCV4P) Meningococcal 2013-04-18 Completed [facility] Polysaccharide 00:00:00 [place] [facility] (groups A, C, Y and Branc h W-135) conjugate vaccine (MCV4P) TDAP 2013-04-18 Completed [facility] 00:00:00 [facility] Meningococcal 2013-04-18 Completed [facility] Polysaccharide 00:00:00 [place] [facility] (groups A, C, Y and Branc h W-135) conjugate vaccine (MCV4P) TDAP 2013-04-18 Completed [facility] 00:00:00 [facility] Tdap 2013-04-18 Completed [facility] 00:00:00 [facility] Meningococcal 2013-04-18 Completed [facility] Polysaccharide 00:00:00 [place] [facility] (groups A, C, Y and Branc h W-135) conjugate vaccine (MCV4P) TDAP 2013-04-18 Completed [facility] 00:00:00 [facility] Meningococcal 2013-04-18 Completed [facility] Polysaccharide 00:00:00 [place] [facility] (groups A, C, Y and Branc h W-135) conjugate vaccine (MCV4P) TDAP 2013-04-18 Completed [facility] 00:00:00 [facility] Meningococcal 2013-04-18 Completed [facility] Polysaccharide 00:00:00 [place] [facility] (groups A, C, Y and Branc h W-135) conjugate vaccine (MCV4P) TDAP 2013-04-18 Completed [facility] 00:00:00 [facility] Meningococcal 2013-04-18 Completed [facility] Polysaccharide 00:00:00 [place] [facility] (groups A, C, Y and Branc h W-135) conjugate vaccine (MCV4P) TDAP 2013-04-18 Completed [facility] 00:00:00 [facility] Meningococcal 2013-04-18 Completed [facility] Polysaccharide 00:00:00 [place] [facility] (groups A, C, Y and Branc h W-135) conjugate vaccine (MCV4P) TDAP 2013-04-18 Completed [facility] 00:00:00 [facility] Meningococcal 2013-04-18 Completed [facility] Polysaccharide 00:00:00 [place] [facility] (groups A, C, Y and Branc h W-135) conjugate vaccine (MCV4P) TDAP 2013-04-18 Completed [facility] 00:00:00 [facility] Meningococcal 2013-04-18 Completed [facility] Polysaccharide 00:00:00 [place] [facility] (groups A, C, Y and Branc h W-135) conjugate vaccine (MCV4P) Meningococcal 2013-04-18 Completed [facility] Polysaccharide 00:00:00 [place] [facility] (groups A, C, Y and Branc h W-135) conjugate vaccine (MCV4P) TDAP 2013-04-18 Completed [facility] 00:00:00 [facility] Meningococcal 2013-04-18 Completed [facility] Polysaccharide 00:00:00 [place] [facility] (groups A, C, Y and Branc h W-135) conjugate vaccine (MCV4P) TDAP 2013-04-18 Completed [facility] 00:00:00 [facility] Tdap 2013-04-18 Completed [facility] 00:00:00 [facility] Meningococcal 2013-04-18 Completed [facility] Polysaccharide 00:00:00 [place] [facility] (groups A, C, Y and Branc h W-135) conjugate vaccine (MCV4P) TDAP 2013-04-18 Completed [facility] 00:00:00 [facility] Meningococcal 2013-04-18 Completed [facility] Polysaccharide 00:00:00 [place] [facility] (groups A, C, Y and Branc h W-135) conjugate vaccine (MCV4P) TDAP 2013-04-18 Completed [facility] 00:00:00 [facility] Meningococcal 2013-04-18 Completed [facility] Polysaccharide 00:00:00 [place] [facility] (groups A, C, Y and Branc h W-135) conjugate vaccine (MCV4P) TDAP 2013-04-18 Completed [facility] 00:00:00 [facility] Meningococcal 2013-04-18 Completed [facility] Polysaccharide 00:00:00 [place] [facility] (groups A, C, Y and Branc h W-135) conjugate vaccine (MCV4P) TDAP 2013-04-18 Completed [facility] 00:00:00 [facility] Meningococcal 2013-04-18 Completed [facility] Polysaccharide 00:00:00 [place] [facility] (groups A, C, Y and Branc h W-135) conjugate vaccine (MCV4P) TDAP 2013-04-18 Completed [facility] 00:00:00 [facility] Meningococcal 2013-04-18 Completed [facility] Polysaccharide 00:00:00 [place] [facility] (groups A, C, Y and Branc h W-135) conjugate vaccine (MCV4P) TDAP 2013-04-18 Completed [facility] 00:00:00 [facility] Meningococcal 2013-04-18 Completed [facility] Polysaccharide 00:00:00 [place] [facility] (groups A, C, Y and Branc h W-135) conjugate vaccine (MCV4P) TDAP 2013-04-18 Completed [facility] 00:00:00 [facility] Meningococcal 2013-04-18 Completed [facility] Polysaccharide 00:00:00 [place] [facility] (groups A, C, Y and Branc h W-135) conjugate vaccine (MCV4P) Meningococcal 2013-04-18 Completed [facility] Polysaccharide 00:00:00 [place] [facility] (groups A, C, Y and Branc h W-135) conjugate vaccine (MCV4P) TDAP 2013-04-18 Completed [facility] 00:00:00 [facility] Tdap 2013-04-18 Completed [facility] 00:00:00 [facility] Meningococcal 2013-04-18 Completed [facility] Polysaccharide 00:00:00 [place] [facility] (groups A, C, Y and Branc h W-135) conjugate vaccine (MCV4P) TDAP 2013-04-18 Completed [facility] 00:00:00 [facility] Meningococcal 2013-04-18 Completed [facility] Polysaccharide 00:00:00 [place] [facility] (groups A, C, Y and Branc h W-135) conjugate vaccine (MCV4P) TDAP 2013-04-18 Completed [facility] 00:00:00 [facility] Meningococcal 2013-04-18 Completed [facility] Polysaccharide 00:00:00 [place] [facility] (groups A, C, Y and Branc h W-135) conjugate vaccine (MCV4P) Tdap 2013-04-18 Completed [facility] 00:00:00 [facility] Meningococcal 2013-04-18 Completed [facility] Polysaccharide 00:00:00 [place] [facility] (groups A, C, Y and Branc h W-135) conjugate vaccine (MCV4P) Tdap 2013-04-18 Completed [facility] 00:00:00 [facility] Meningococcal 2013-04-18 Completed [facility] Polysaccharide 00:00:00 [place] [facility] (groups A, C, Y and Branc h W-135) conjugate vaccine (MCV4P) Tdap 2013-04-18 Completed [facility] 00:00:00 [facility] Meningococcal 2013-04-18 Completed [facility] Polysaccharide 00:00:00 [place] [facility] (groups A, C, Y and Branc h W-135) conjugate vaccine (MCV4P) Tdap 2013-04-18 Completed [facility] 00:00:00 [facility] Meningococcal 2013-04-18 Completed [facility] Polysaccharide 00:00:00 [place] [facility] (groups A, C, Y and Branc h W-135) conjugate vaccine (MCV4P) Tdap 2013-04-18 Completed [facility] 00:00:00 [facility] Meningococcal 2013-04-18 Completed [facility] Polysaccharide 00:00:00 [place] [facility] (groups A, C, Y and Branc h W-135) conjugate vaccine (MCV4P) Meningococcal 2013-04-18 Completed [facility] Polysaccharide 00:00:00 [place] [facility] (groups A, C, Y and Branc h W-135) conjugate vaccine (MCV4P) Tdap 2013-04-18 Completed [facility] 00:00:00 [facility] Tdap 2013-04-18 Completed [facility] 00:00:00 [facility] Meningococcal 2013-04-18 Completed [facility] Polysaccharide 00:00:00 [place] [facility] (groups A, C, Y and Branc h W-135) conjugate vaccine (MCV4P) Tdap 2013-04-18 Completed [facility] 00:00:00 [facility] Meningococcal 2013-04-18 Completed [facility] Polysaccharide 00:00:00 [place] [facility] (groups A, C, Y and Branc h W-135) conjugate vaccine (MCV4P) Tdap 2013-04-18 Completed [facility] 00:00:00 [facility] Meningococcal 2013-04-18 Completed [facility] Polysaccharide 00:00:00 [place] [facility] (groups A, C, Y and Branc h W-135) conjugate vaccine (MCV4P) Tdap 2013-04-18 Completed [facility] 00:00:00 [facility] Meningococcal 2013-04-18 Completed [facility] Polysaccharide 00:00:00 [place] [facility] (groups A, C, Y and Branc h W-135) conjugate vaccine (MCV4P) Tdap 2013-04-18 Completed [facility] 00:00:00 [facility] Meningococcal 2013-04-18 Completed [facility] Polysaccharide 00:00:00 [place] [facility] (groups A, C, Y and Branc h W-135) conjugate vaccine (MCV4P) Tdap 2013-04-18 Completed [facility] 00:00:00 [facility] Meningococcal 2013-04-18 Completed [facility] Polysaccharide 00:00:00 [place] [facility] (groups A, C, Y and Branc h W-135) conjugate vaccine (MCV4P) Tdap 2013-04-18 Completed [facility] 00:00:00 [facility] Meningococcal 2013-04-18 Completed [facility] Polysaccharide 00:00:00 [place] [facility] (groups A, C, Y and Branc h W-135) conjugate vaccine (MCV4P) Tdap 2013-04-18 Completed [facility] 00:00:00 [facility] Meningococcal 2013-04-18 Completed [facility] Polysaccharide 00:00:00 [place] [facility] (groups A, C, Y and Branc h W-135) conjugate vaccine (MCV4P) Tdap 2013-04-18 Completed [facility] 00:00:00 [facility] Meningococcal 2013-04-18 Completed [facility] Polysaccharide 00:00:00 [place] [facility] (groups A, C, Y and Branc h W-135) conjugate vaccine (MCV4P) Tdap 2013-04-18 Completed [facility] 00:00:00 [facility] [...] Branch HPV 2011-04-07 Completed [facility] 00:00:00 [facility] HPV 2011-04-07 Completed [facility] 00:00:00 [facility] HPV 2011-04-07 Completed [facility] 00:00:00 [facility] HPV 2011-04-07 Completed [facility] 00:00:00 [facility] HPV 2011-04-07 Completed [facility] 00:00:00 [facility] HPV 2011-04-07 Completed [facility] 00:00:00 [facility] HPV 2011-04-07 Completed [facility] 00:00:00 [facility] HPV 2011-04-07 Completed [facility] 00:00:00 [facility] Polio (IPV/OPV) 2006-04-20 Completed [facility] 00:00:00 [facility] Varicella 2006-04-20 Completed [facility] (varivax)(chicken 00:00:00 [place] [facility] pox) [facility] DTAP 2006-04-20 Completed [facility] 00:00:00 [facility] MMR 2006-04-20 Completed [facility] 00:00:00 [facility] Polio (IPV/OPV) 2006-04-20 Completed [facility] 00:00:00 [facility] Varicella 2006-04-20 Completed [facility] (varivax)(chicken 00:00:00 [place] [facility] pox) [facility] DTAP 2006-04-20 Completed [facility] 00:00:00 [facility] MMR 2006-04-20 Completed [facility] 00:00:00 [facility] Polio (IPV/OPV) 2006-04-20 Completed [facility] 00:00:00 [facility] Polio (IPV/OPV) 2006-04-20 Completed [facility] 00:00:00 [facility] Varicella 2006-04-20 Completed [facility] (varivax)(chicken 00:00:00 [place] [facility] pox) [facility] DTAP 2006-04-20 Completed [facility] 00:00:00 [facility] MMR 2006-04-20 Completed [facility] 00:00:00 [facility] Varicella 2006-04-20 Completed [facility] (varivax)(chicken 00:00:00 [place] [facility] DTAP 2006-04-20 Completed [facility] 00:00:00 [facility] MMR 2006-04-20 Completed [facility] 00:00:00 [facility] Polio (IPV/OPV) 2006-04-20 Completed [facility] 00:00:00 [facility] Varicella 2006-04-20 Completed [facility] (varivax)(chicken 00:00:00 [place] [facility] DTAP 2006-04-20 Completed [facility] 00:00:00 [facility] MMR 2006-04-20 Completed [facility] 00:00:00 [facility] Polio (IPV/OPV) 2006-04-20 Completed [facility] 00:00:00 [facility] Varicella 2006-04-20 Completed [facility] (varivax)(chicken 00:00:00 [place] [facility] DTAP 2006-04-20 Completed [facility] 00:00:00 [facility] MMR 2006-04-20 Completed [facility] 00:00:00 [facility] Polio (IPV/OPV) 2006-04-20 Completed [facility] 00:00:00 [facility] Varicella 2006-04-20 Completed [facility] (varivax)(chicken 00:00:00 [place] [facility] DTAP 2006-04-20 Completed [facility] 00:00:00 [facility] MMR 2006-04-20 Completed [facility] 00:00:00 [facility] Polio (IPV/OPV) 2006-04-20 Completed [facility] 00:00:00 [facility] Varicella 2006-04-20 Completed [facility] (varivax)(chicken 00:00:00 [place] [facility]ox[facility] DTAP 2006-04-20 Completed [facility] 00:00:00 [facility] MMR 2006-04-20 Completed [facility] 00:00:00 [facility] Polio (IPV/OPV) 2006-04-20 Completed [facility] 00:00:00 [facility] Varicella 2006-04-20 Completed [facility] (varivax)(chicken 00:00:00 [place] [facility]ox[facility] DTAP 2006-04-20 Completed [facility] 00:00:00 [facility] MMR 2006-04-20 Completed [facility] 00:00:00 [facility] Polio (IPV/OPV) 2006-04-20 Completed [facility] 00:00:00 [facility] Varicella 2006-04-20 Completed [facility] (varivax)(chicken 00:00:00 [place] [facility]ox[facility] DTAP 2006-04-20 Completed [facility] 00:00:00 [facility] MMR 2006-04-20 Completed [facility] 00:00:00 [facility] Polio (IPV/OPV) 2006-04-20 Completed [facility] 00:00:00 [facility] Varicella 2006-04-20 Completed [facility] (varivax)(chicken 00:00:00 [place] [facility] pox[facility] DTAP 2006-04-20 Completed [facility] 00:00:00 [facility] MMR 2006-04-20 Completed [facility] 00:00:00 [facility] Polio (IPV/OPV) 2006-04-20 Completed [facility] 00:00:00 [facility] Varicella 2006-04-20 Completed [facility] (varivax)(chicken 00:00:00 [facility] edical pox) Branch DTAP 2006-04-20 Completed [facility] 00:00:00 [facility] MMR 2006-04-20 Completed [facility] 00:00:00 [facility] Polio (IPV/OPV) 2006-04-20 Completed [facility] 00:00:00 [facility] Polio (IPV/OPV) 2006-04-20 Completed [facility] 00:00:00 [facility] Varicella 2006-04-20 Completed [facility] (varivax)(chicken 00:00:00 [place] [facility]ox[facility] DTAP 2006-04-20 Completed [facility] 00:00:00 [facility] MMR 2006-04-20 Completed [facility] 00:00:00 [facility] Varicella 2006-04-20 Completed [facility] (varivax)(chicken 00:00:00 [place] [facility] pox[facility] DTAP 2006-04-20 Completed [facility] 00:00:00 [facility] Polio (IPV/OPV) 2006-04-20 Completed [facility] 00:00:00 [facility] Varicella 2006-04-20 Completed [facility] (varivax)(chicken 00:00:00 [place] [facility] pox) [facility] DTAP 2006-04-20 Completed [facility] 00:00:00 [facility] MMR 2006-04-20 Completed [facility] 00:00:00 [facility] MMR 2006-04-20 Completed [facility] 00:00:00 [facility] Polio (IPV/OPV) 2006-04-20 Completed [facility] 00:00:00 [facility] Varicella 2006-04-20 Completed [facility] (varivax)(chicken 00:00:00 [place] [facility] pox[facility] DTAP 2006-04-20 Completed [facility] 00:00:00 [facility] MMR 2006-04-20 Completed [facility] 00:00:00 [facility] Polio (IPV/OPV) 2006-04-20 Completed [facility] 00:00:00 [facility] Varicella 2006-04-20 Completed [facility] (varivax)(chicken 00:00:00 [place] [facility] pox[facility] DTAP 2006-04-20 Completed [facility] 00:00:00 [facility] MMR 2006-04-20 Completed [facility] 00:00:00 [facility] Polio (IPV/OPV) 2006-04-20 Completed [facility] 00:00:00 [facility] Varicella 2006-04-20 Completed [facility] (varivax)(chicken 00:00:00 [place] [facility] pox) [facility] DTAP 2006-04-20 Completed [facility] 00:00:00 [facility] MMR 2006-04-20 Completed [facility] 00:00:00 [facility] Polio (IPV/OPV) 2006-04-20 Completed [facility] 00:00:00 [facility] Varicella 2006-04-20 Completed [facility] (varivax)(chicken 00:00:00 [place] [facility] pox[facility] DTAP 2006-04-20 Completed [facility] 00:00:00 [facility] MMR 2006-04-20 Completed [facility] 00:00:00 [facility] Polio (IPV/OPV) 2006-04-20 Completed [facility] 00:00:00 [facility] Varicella 2006-04-20 Completed [facility] (varivax)(chicken 00:00:00 [place] [facility] pox[facility] DTAP 2006-04-20 Completed [facility] 00:00:00 [facility] MMR 2006-04-20 Completed [facility] 00:00:00 [facility] Polio (IPV/OPV) 2006-04-20 Completed [facility] 00:00:00 [facility] Varicella 2006-04-20 Completed [facility] (varivax)(chicken 00:00:00 [place] [facility] pox[facility] DTAP 2006-04-20 Completed [facility] 00:00:00 [facility] MMR 2006-04-20 Completed [facility] 00:00:00 [facility] Polio (IPV/OPV) 2006-04-20 Completed [facility] 00:00:00 [facility] Varicella 2006-04-20 Completed [facility] (varivax)(chicken 00:00:00 [place] [facility] pox[facility] DTAP 2006-04-20 Completed [facility] 00:00:00 [facility] MMR 2006-04-20 Completed [facility] 00:00:00 [facility] Polio (IPV/OPV) 2006-04-20 Completed [facility] 00:00:00 [facility] Varicella 2006-04-20 Completed [facility] (varivax)(chicken 00:00:00 [place] [facility] pox[facility] DTAP 2006-04-20 Completed [facility] 00:00:00 [facility] MMR 2006-04-20 Completed [facility] 00:00:00 [facility] Polio (IPV/OPV) 2006-04-20 Completed [facility] 00:00:00 [facility] Varicella 2006-04-20 Completed [facility] (varivax)(chicken 00:00:00 [place] [facility] pox[facility] DTAP 2006-04-20 Completed [facility] 00:00:00 [facility] MMR 2006-04-20 Completed [facility] 00:00:00 [facility] Polio (IPV/OPV) 2006-04-20 Completed [facility] 00:00:00 [facility] Polio (IPV/OPV) 2006-04-20 Completed [facility] 00:00:00 [facility] Varicella 2006-04-20 Completed [facility] (varivax)(chicken 00:00:00 [place] [facility] pox[facility] DTAP 2006-04-20 Completed [facility] 00:00:00 [facility] MMR 2006-04-20 Completed [facility] 00:00:00 [facility] Varicella 2006-04-20 Completed [facility] (varivax)(chicken 00:00:00 [place] [facility] pox[facility] DTAP 2006-04-20 Completed [facility] 00:00:00 [facility] MMR 2006-04-20 Completed [facility] 00:00:00 [facility] Polio (IPV/OPV) 2006-04-20 Completed [facility] 00:00:00 [facility] Varicella 2006-04-20 Completed [facility] (varivax)(chicken 00:00:00 [place] [facility] pox) [facility] DTAP 2006-04-20 Completed [facility] 00:00:00 [facility] MMR 2006-04-20 Completed [facility] 00:00:00 [facility] Polio (IPV/OPV) 2006-04-20 Completed [facility] 00:00:00 [facility] Varicella 2006-04-20 Completed [facility] (varivax)(chicken 00:00:00 [place] [facility] pox) [facility] DTAP 2006-04-20 Completed [facility] 00:00:00 [facility] MMR 2006-04-20 Completed [facility] 00:00:00 [facility] Polio (IPV/OPV) 2006-04-20 Completed [facility] 00:00:00 [facility] Varicella 2006-04-20 Completed [facility] (varivax)(chicken 00:00:00 [place] [facility] pox) [facility] DTAP 2006-04-20 Completed [facility] 00:00:00 [facility] MMR 2006-04-20 Completed [facility] 00:00:00 [facility] Polio (IPV/OPV) 2006-04-20 Completed [facility] 00:00:00 [facility] Varicella 2006-04-20 Completed [facility] (varivax)(chicken 00:00:00 [place] [facility] pox) [facility] DTAP 2006-04-20 Completed [facility] 00:00:00 [facility] MMR 2006-04-20 Completed [facility] 00:00:00 [facility] Polio (IPV/OPV) 2006-04-20 Completed [facility] 00:00:00 [facility] Varicella 2006-04-20 Completed [facility] (varivax)(chicken 00:00:00 [place] [facility] pox) [facility] DTAP 2006-04-20 Completed [facility] 00:00:00 [facility] MMR 2006-04-20 Completed [facility] 00:00:00 [facility] Polio (IPV/OPV) 2006-04-20 Completed [facility] 00:00:00 [facility] Varicella 2006-04-20 Completed [facility] (varivax)(chicken 00:00:00 [place] [facility] pox) [facility] DTAP 2006-04-20 Completed [facility] 00:00:00 [facility] MMR 2006-04-20 Completed [facility] 00:00:00 [facility] Polio (IPV/OPV) 2006-04-20 Completed [facility] 00:00:00 [facility] Varicella 2006-04-20 Completed [facility] (varivax)(chicken 00:00:00 [place] [facility] pox) [facility] DTAP 2006-04-20 Completed [facility] 00:00:00 [facility] MMR 2006-04-20 Completed [facility] 00:00:00 [facility] Polio (IPV/OPV) 2006-04-20 Completed [facility] 00:00:00 [facility] Polio (IPV/OPV) 2006-04-20 Completed [facility] 00:00:00 [facility] Varicella 2006-04-20 Completed [facility] (varivax)(chicken 00:00:00 [place] [facility] pox) [facility] DTAP 2006-04-20 Completed [facility] 00:00:00 [facility] MMR 2006-04-20 Completed [facility] 00:00:00 [facility] Varicella 2006-04-20 Completed [facility] (varivax)(chicken 00:00:00 [place] [facility] pox) [facility] DTAP 2006-04-20 Completed [facility] 00:00:00 [facility] MMR 2006-04-20 Completed [facility] 00:00:00 [facility] Polio (IPV/OPV) 2006-04-20 Completed [facility] 00:00:00 [facility] Varicella 2006-04-20 Completed [facility] (varivax)(chicken 00:00:00 [place] [facility] pox) [facility] DTAP 2006-04-20 Completed [facility] 00:00:00 [facility] MMR 2006-04-20 Completed [facility] 00:00:00 [facility] Polio (IPV/OPV) 2006-04-20 Completed [facility] 00:00:00 [facility] Varicella 2006-04-20 Completed [facility] (varivax)(chicken 00:00:00 [place] [facility] pox) [facility] DTAP 2006-04-20 Completed [facility] 00:00:00 [facility] MMR 2006-04-20 Completed [facility] 00:00:00 [facility] Polio (IPV/OPV) 2006-04-20 Completed [facility] 00:00:00 [facility] Varicella 2006-04-20 Completed [facility] (varivax)(chicken 00:00:00 [place] [facility] pox) [facility] DTAP 2006-04-20 Completed [facility] 00:00:00 [facility] MMR 2006-04-20 Completed [facility] 00:00:00 [facility] Polio (IPV/OPV) 2006-04-20 Completed [facility] 00:00:00 [facility] Varicella 2006-04-20 Completed [facility] (varivax)(chicken 00:00:00 [place] [facility] pox) [facility] DTAP 2006-04-20 Completed [facility] 00:00:00 [facility] MMR 2006-04-20 Completed [facility] 00:00:00 [facility] Polio (IPV/OPV) 2006-04-20 Completed [facility] 00:00:00 [facility] Varicella 2006-04-20 Completed [facility] (varivax)(chicken 00:00:00 [place] [facility] pox) [facility] DTAP 2006-04-20 Completed [facility] 00:00:00 [facility] MMR 2006-04-20 Completed [facility] 00:00:00 [facility] Polio (IPV/OPV) 2006-04-20 Completed [facility] 00:00:00 [facility] Varicella 2006-04-20 Completed [facility] (varivax)(chicken 00:00:00 [place] [facility] pox) [facility] DTAP 2006-04-20 Completed [facility] 00:00:00 [facility] MMR 2006-04-20 Completed [facility] 00:00:00 [facility] Polio (IPV/OPV) 2006-04-20 Completed [facility] 00:00:00 [facility] Varicella 2006-04-20 Completed [facility] (varivax)(chicken 00:00:00 [place] [facility] pox) [facility] DTAP 2006-04-20 Completed [facility] 00:00:00 [facility] MMR 2006-04-20 Completed [facility] 00:00:00 [facility] Polio (IPV/OPV) 2006-04-20 Completed [facility] 00:00:00 [facility] Varicella 2006-04-20 Completed [facility] (varivax)(chicken 00:00:00 [place] [facility] pox) [facility] DTAP 2006-04-20 Completed [facility] 00:00:00 [facility] MMR 2006-04-20 Completed [facility] 00:00:00 [facility] Polio (IPV/OPV) 2006-04-20 Completed [facility] 00:00:00 [facility] Polio (IPV/OPV) 2006-04-20 Completed [facility] 00:00:00 [facility] Varicella 2006-04-20 Completed [facility] (varivax)(chicken 00:00:00 [place] [facility] pox) [facility] DTAP 2006-04-20 Completed [facility] 00:00:00 [facility] MMR 2006-04-20 Completed [facility] 00:00:00 [facility] Varicella 2006-04-20 Completed [facility] (varivax)(chicken 00:00:00 [place] [facility] pox) [facility] DTAP 2006-04-20 Completed [facility] 00:00:00 [facility] Polio (IPV/OPV) 2006-04-20 Completed [facility] 00:00:00 [facility] MMR 2006-04-20 Completed [facility] 00:00:00 [facility] Varicella 2006-04-20 Completed [facility] (varivax)(chicken 00:00:00 [place] [facility] pox) [facility] DTAP 2006-04-20 Completed [facility] 00:00:00 [facility] MMR 2006-04-20 Completed [facility] 00:00:00 [facility] Polio (IPV/OPV) 2006-04-20 Completed [facility] 00:00:00 [facility] Varicella 2006-04-20 Completed [facility] (varivax)(chicken 00:00:00 [place] [facility] pox) [facility] DTAP 2006-04-20 Completed [facility] 00:00:00 [facility] MMR 2006-04-20 Completed [facility] 00:00:00 [facility] Polio (IPV/OPV) 2006-04-20 Completed [facility] 00:00:00 [facility] Varicella 2006-04-20 Completed [facility] (varivax)(chicken 00:00:00 [place] [facility] pox) [facility] DTAP 2006-04-20 Completed [facility] 00:00:00 [facility] MMR 2006-04-20 Completed [facility] 00:00:00 [facility] Polio (IPV/OPV) 2006-04-20 Completed [facility] 00:00:00 [facility] Varicella 2006-04-20 Completed [facility] (varivax)(chicken 00:00:00 [place] [facility] pox) [facility] DTAP 2006-04-20 Completed [facility] 00:00:00 [facility] MMR 2006-04-20 Completed [facility] 00:00:00 [facility] Polio (IPV/OPV) 2006-04-20 Completed [facility] 00:00:00 [facility] Varicella 2006-04-20 Completed [facility] (varivax)(chicken 00:00:00 [place] [facility] pox) [facility] DTAP 2006-04-20 Completed [facility] 00:00:00 [facility] MMR 2006-04-20 Completed [facility] 00:00:00 [facility] Polio (IPV/OPV) 2006-04-20 Completed [facility] 00:00:00 [facility] Polio (IPV/OPV) 2006-04-20 Completed [facility] 00:00:00 [facility] Varicella 2006-04-20 Completed [facility] (varivax)(chicken 00:00:00 [place] [facility] pox) [facility] DTAP 2006-04-20 Completed [facility] 00:00:00 [facility] MMR 2006-04-20 Completed [facility] 00:00:00 [facility] Varicella 2006-04-20 Completed [facility] (varivax)(chicken 00:00:00 [place] [facility] pox) [facility] DTAP 2006-04-20 Completed [facility] 00:00:00 [facility] Polio (IPV/OPV) 2006-04-20 Completed [facility] 00:00:00 [facility] Varicella 2006-04-20 Completed [facility] (varivax)(chicken 00:00:00 [place] [facility] pox) [facility] MMR 2006-04-20 Completed [facility] 00:00:00 [facility] DTAP 2006-04-20 Completed [facility] 00:00:00 [facility] MMR 2006-04-20 Completed [facility] 00:00:00 [facility] Polio (IPV/OPV) 2006-04-20 Completed [facility] 00:00:00 [facility] Varicella 2006-04-20 Completed [facility] (varivax)(chicken 00:00:00 [place] [facility] pox) [facility] DTAP 2006-04-20 Completed [facility] 00:00:00 [facility] MMR 2006-04-20 Completed [facility] 00:00:00 [facility] Polio (IPV/OPV) 2006-04-20 Completed [facility] 00:00:00 [facility] Varicella 2006-04-20 Completed [facility] (varivax)(chicken 00:00:00 [place] [facility] pox) [facility] DTAP 2006-04-20 Completed [facility] 00:00:00 [facility] MMR 2006-04-20 Completed [facility] 00:00:00 [facility] Polio (IPV/OPV) 2006-04-20 Completed [facility] 00:00:00 [facility] Varicella 2006-04-20 Completed [facility] (varivax)(chicken 00:00:00 [place] [facility] pox) [facility] DTAP 2006-04-20 Completed [facility] 00:00:00 [facility] MMR 2006-04-20 Completed [facility] 00:00:00 [facility] Polio (IPV/OPV) 2006-04-20 Completed [facility] 00:00:00 [facility] Varicella 2006-04-20 Completed [facility] (varivax)(chicken 00:00:00 [facility] edical pox) Branch DTAP 2006-04-20 Completed [facility] 00:00:00 [facility] MMR 2006-04-20 Completed [facility] 00:00:00 [facility] Polio (IPV/OPV) 2006-04-20 Completed [facility] 00:00:00 [facility] Varicella 2006-04-20 Completed [facility] (varivax)(chicken 00:00:00 [place] [facility] pox) [facility] DTAP 2006-04-20 Completed [facility] 00:00:00 [facility] MMR 2006-04-20 Completed [facility] 00:00:00 [facility] Polio (IPV/OPV) 2006-04-20 Completed [facility] 00:00:00 [facility] Varicella 2006-04-20 Completed [facility] (varivax)(chicken 00:00:00 [place] [facility] pox) [facility] DTAP 2006-04-20 Completed [facility] 00:00:00 [facility] MMR 2006-04-20 Completed [facility] 00:00:00 [facility] Polio (IPV/OPV) 2006-04-20 Completed [facility] 00:00:00 [facility] Polio (IPV/OPV) 2006-04-20 Completed [facility] 00:00:00 [facility] Varicella 2006-04-20 Completed [facility] (varivax)(chicken 00:00:00 [place] [facility] pox) [facility] DTAP 2006-04-20 Completed [facility] 00:00:00 [facility] MMR 2006-04-20 Completed [facility] 00:00:00 [facility] Varicella 2006-04-20 Completed [facility] (varivax)(chicken 00:00:00 [place] [facility] pox) [facility] DTAP 2006-04-20 Completed [facility] 00:00:00 [facility] Polio (IPV/OPV) 2006-04-20 Completed [facility] 00:00:00 [facility] MMR 2006-04-20 Completed [facility] 00:00:00 [facility] Varicella 2006-04-20 Completed [facility] (varivax)(chicken 00:00:00 [place] [facility] pox) [facility] DTAP 2006-04-20 Completed [facility] 00:00:00 [facility] MMR 2006-04-20 Completed [facility] 00:00:00 [facility] Polio (IPV/OPV) 2006-04-20 Completed [facility] 00:00:00 [facility] Varicella 2006-04-20 Completed [facility] (varivax)(chicken 00:00:00 [place] [facility] pox) Branch DTAP 2006-04-20 Completed [facility] 00:00:00 [facility] MMR 2006-04-20 Completed [facility] 00:00:00 [facility] Polio (IPV/OPV) 2006-04-20 Completed [facility] 00:00:00 [facility] Varicella 2006-04-20 Completed [facility] (varivax)(chicken 00:00:00 [place] [facility] pox) [facility] DTAP 2006-04-20 Completed [facility] 00:00:00 [facility] MMR 2006-04-20 Completed [facility] 00:00:00 [facility] Polio (IPV/OPV) 2006-04-20 Completed [facility] 00:00:00 [facility] Varicella 2006-04-20 Completed [facility] (varivax)(chicken 00:00:00 [place] [facility] pox) [facility] DTAP 2006-04-20 Completed [facility] 00:00:00 [facility] MMR 2006-04-20 Completed [facility] 00:00:00 [facility] Polio (IPV/OPV) 2006-04-20 Completed [facility] 00:00:00 [facility] Varicella 2006-04-20 Completed [facility] (varivax)(chicken 00:00:00 [place] [facility] pox) [facility] DTAP 2006-04-20 Completed [facility] 00:00:00 [facility] MMR 2006-04-20 Completed [facility] 00:00:00 [facility] Polio (IPV/OPV) 2006-04-20 Completed [facility] 00:00:00 [facility] Varicella 2006-04-20 Completed [facility] (varivax)(chicken 00:00:00 [place] [facility] pox) [facility] DTAP 2006-04-20 Completed [facility] 00:00:00 [facility] MMR 2006-04-20 Completed [facility] 00:00:00 [facility] Polio (IPV/OPV) 2006-04-20 Completed [facility] 00:00:00 [facility] Varicella 2006-04-20 Completed [facility] (varivax)(chicken 00:00:00 [place] [facility] pox) [facility] DTAP 2006-04-20 Completed [facility] 00:00:00 [facility] MMR 2006-04-20 Completed [facility] 00:00:00 [facility] Polio (IPV/OPV) 2006-04-20 Completed [facility] 00:00:00 [facility] Polio (IPV/OPV) 2006-04-20 Completed [facility] 00:00:00 [facility] Varicella 2006-04-20 Completed [facility] (varivax)(chicken 00:00:00 [place] [facility] pox) [facility] DTAP 2006-04-20 Completed [facility] 00:00:00 [facility] MMR 2006-04-20 Completed [facility] 00:00:00 [facility] Varicella 2006-04-20 Completed [facility] (varivax)(chicken 00:00:00 [place] [facility] pox[facility] Polio (IPV/OPV) 2006-04-20 Completed [facility] 00:00:00 [facility] Varicella 2006-04-20 Completed [facility] (varivax)(chicken 00:00:00 [place] [facility] pox) [facility] DTAP 2006-04-20 Completed [facility] 00:00:00 [facility] DTAP 2006-04-20 Completed [facility] 00:00:00 [facility] MMR 2006-04-20 Completed [facility] 00:00:00 [facility] MMR 2006-04-20 Completed [facility] 00:00:00 [facility] Polio (IPV/OPV) 2006-04-20 Completed [facility] 00:00:00 [facility] Varicella 2006-04-20 Completed [facility] (varivax)(chicken 00:00:00 [place] [facility] pox[facility] DTAP 2006-04-20 Completed [facility] 00:00:00 [facility] MMR 2006-04-20 Completed [facility] 00:00:00 [facility] Polio (IPV/OPV) 2006-04-20 Completed [facility] 00:00:00 [facility] Varicella 2006-04-20 Completed [facility] (varivax)(chicken 00:00:00 [place] [facility] pox) [facility] DTAP 2006-04-20 Completed [facility] 00:00:00 [facility] MMR 2006-04-20 Completed [facility] 00:00:00 [facility] Polio (IPV/OPV) 2006-04-20 Completed [facility] 00:00:00 [facility] Varicella 2006-04-20 Completed [facility] (varivax)(chicken 00:00:00 [place] [facility] pox) [facility] DTAP 2006-04-20 Completed [facility] 00:00:00 [facility] MMR 2006-04-20 Completed [facility] 00:00:00 [facility] Polio (IPV/OPV) 2006-04-20 Completed [facility] 00:00:00 [facility] Varicella 2006-04-20 Completed [facility] (varivax)(chicken 00:00:00 [place] [facility] pox[facility] DTAP 2006-04-20 Completed [facility] 00:00:00 [facility] MMR 2006-04-20 Completed [facility] 00:00:00 [facility] Polio (IPV/OPV) 2006-04-20 Completed [facility] 00:00:00 [facility] Varicella 2006-04-20 Completed [facility] (varivax)(chicken 00:00:00 [place] [facility] pox[facility] DTAP 2006-04-20 Completed [facility] 00:00:00 [facility] MMR 2006-04-20 Completed [facility] 00:00:00 [facility] Polio (IPV/OPV) 2006-04-20 Completed [facility] 00:00:00 [facility] Varicella 2006-04-20 Completed [facility] (varivax)(chicken 00:00:00 [place] [facility] pox) [facility] DTAP 2006-04-20 Completed [facility] 00:00:00 [facility] MMR 2006-04-20 Completed [facility] 00:00:00 [facility] Polio (IPV/OPV) 2006-04-20 Completed [facility] 00:00:00 [facility] Polio (IPV/OPV) 2006-04-20 Completed [facility] 00:00:00 [facility] Varicella 2006-04-20 Completed [facility] (varivax)(chicken 00:00:00 [place] [facility] pox) [facility] DTAP 2006-04-20 Completed [facility] 00:00:00 [facility] MMR 2006-04-20 Completed [facility] 00:00:00 [facility] Polio (IPV/OPV) 2006-04-20 Completed [facility] 00:00:00 [facility] Varicella 2006-04-20 Completed [facility] (varivax)(chicken 00:00:00 [place] [facility] pox) [facility] DTAP 2006-04-20 Completed [facility] 00:00:00 [facility] MMR 2006-04-20 Completed [facility] 00:00:00 [facility] Varicella 2006-04-20 Completed [facility] (varivax)(chicken 00:00:00 [place] [facility] pox) [facility] DTAP 2006-04-20 Completed [facility] 00:00:00 [facility] MMR 2006-04-20 Completed [facility] 00:00:00 [facility] Polio (IPV/OPV) 2006-04-20 Completed [facility] 00:00:00 [facility] Varicella 2006-04-20 Completed [facility] (varivax)(chicken 00:00:00 [place] [facility] pox) [facility] DTAP 2006-04-20 Completed [facility] 00:00:00 [facility] MMR 2006-04-20 Completed [facility] 00:00:00 [facility] Polio (IPV/OPV) 2006-04-20 Completed [facility] 00:00:00 [facility] Varicella 2006-04-20 Completed [facility] (varivax)(chicken 00:00:00 [place] [facility] pox) [facility] DTAP 2006-04-20 Completed [facility] 00:00:00 [facility] MMR 2006-04-20 Completed [facility] 00:00:00 [facility] Polio (IPV/OPV) 2006-04-20 Completed [facility] 00:00:00 [facility] Varicella 2006-04-20 Completed [facility] (varivax)(chicken 00:00:00 [place] [facility] pox) [facility] DTAP 2006-04-20 Completed [facility] 00:00:00 [facility] MMR 2006-04-20 Completed [facility] 00:00:00 [facility] Polio (IPV/OPV) 2006-04-20 Completed [facility] 00:00:00 [facility] Varicella 2006-04-20 Completed [facility] (varivax)(chicken 00:00:00 [place] [facility] pox) [facility] DTAP 2006-04-20 Completed [facility] 00:00:00 [facility] MMR 2006-04-20 Completed [facility] 00:00:00 [facility] Polio (IPV/OPV) 2006-04-20 Completed [facility] 00:00:00 [facility] Varicella 2006-04-20 Completed [facility] (varivax)(chicken 00:00:00 [place] [facility] pox) [facility] DTAP 2006-04-20 Completed [facility] 00:00:00 [facility] MMR 2006-04-20 Completed [facility] 00:00:00 [facility] Polio (IPV/OPV) 2006-04-20 Completed [facility] 00:00:00 [facility] Varicella 2006-04-20 Completed [facility] (varivax)(chicken 00:00:00 [place] [facility] pox[facility] DTAP 2006-04-20 Completed [facility] 00:00:00 [facility] MMR 2006-04-20 Completed [facility] 00:00:00 [facility] Polio (IPV/OPV) 2006-04-20 Completed [facility] 00:00:00 [facility] Varicella 2006-04-20 Completed [facility] (varivax)(chicken 00:00:00 [place] [facility] pox[facility] DTAP 2006-04-20 Completed [facility] 00:00:00 [facility] MMR 2006-04-20 Completed [facility] 00:00:00 [facility] Polio (IPV/OPV) 2006-04-20 Completed [facility] 00:00:00 [facility] Varicella 2006-04-20 Completed [facility] (varivax)(chicken 00:00:00 [place] [facility] pox[facility] DTAP 2006-04-20 Completed [facility] 00:00:00 [facility] MMR 2006-04-20 Completed [facility] 00:00:00 [facility] HEPATITIS A 2005-01-09 Completed [facility] 00:00:00 [facility] HEPATITIS A 2005-01-09 Completed [facility] 00:00:00 [facility] HEPATITIS A 2005-01-09 Completed [facility] 00:00:00 [facility] HEPATITIS A 2005-01-09 Completed [facility] 00:00:00 [facility] HEPATITIS A 2005-01-09 Completed [facility] 00:00:00 [facility] HEPATITIS A 2005-01-09 Completed [facility] 00:00:00 [facility] HEPATITIS A 2005-01-09 Completed [facility] 00:00:00 [facility] HEPATITIS A 2005-01-09 Completed [facility] 00:00:00 [facility] HEPATITIS A 2005-01-09 Completed [facility] 00:00:00 [facility] HEPATITIS A 2005-01-09 Completed [facility] 00:00:00 [facility] HEPATITIS A 2005-01-09 Completed [facility] 00:00:00 [facility] HEPATITIS A 2005-01-09 Completed [facility] 00:00:00 [facility] HEPATITIS A 2005-01-09 Completed [facility] 00:00:00 [facility] HEPATITIS A 2005-01-09 Completed [facility] 00:00:00 [facility] HEPATITIS A 2005-01-09 Completed [facility] 00:00:00 [facility] HEPATITIS A 2005-01-09 Completed [facility] 00:00:00 [facility] HEPATITIS A 2005-01-09 Completed [facility] 00:00:00 [facility] HEPATITIS A 2005-01-09 Completed [facility] 00:00:00 [facility] HEPATITIS A 2005-01-09 Completed [facility] 00:00:00 [facility] HEPATITIS A 2005-01-09 Completed [facility] 00:00:00 [facility] HEPATITIS A 2005-01-09 Completed [facility] 00:00:00 [facility] HEPATITIS A 2005-01-09 Completed [facility] 00:00:00 [facility] HEPATITIS A 2005-01-09 Completed [facility] 00:00:00 [facility] HEPATITIS A 2005-01-09 Completed [facility] 00:00:00 [facility] HEPATITIS A 2005-01-09 Completed [facility] 00:00:00 [facility] HEPATITIS A 2005-01-09 Completed [facility] 00:00:00 [facility] HEPATITIS A 2005-01-09 Completed [facility] 00:00:00 [facility] HEPATITIS A 2005-01-09 Completed [facility] 00:00:00 [facility] HEPATITIS A 2005-01-09 Completed [facility] 00:00:00 [facility] HEPATITIS A 2005-01-09 Completed [facility] 00:00:00 [facility] HEPATITIS A 2005-01-09 Completed [facility] 00:00:00 [facility] HEPATITIS A 2005-01-09 Completed [facility] 00:00:00 [facility] HEPATITIS A 2005-01-09 Completed [facility] 00:00:00 [facility] HEPATITIS A 2005-01-09 Completed [facility] 00:00:00 [facility] HEPATITIS A 2005-01-09 Completed [facility] 00:00:00 [facility] HEPATITIS A 2005-01-09 Completed [facility] 00:00:00 [facility] HEPATITIS A 2005-01-09 Completed [facility] 00:00:00 [facility] HEPATITIS A 2005-01-09 Completed [facility] 00:00:00 [facility] HEPATITIS A 2005-01-09 Completed [facility] 00:00:00 [facility] HEPATITIS A 2005-01-09 Completed [facility] 00:00:00 [facility] HEPATITIS A 2005-01-09 Completed [facility] 00:00:00 [facility] HEPATITIS A 2005-01-09 Completed [facility] 00:00:00 [facility] HEPATITIS A 2005-01-09 Completed [facility] 00:00:00 [facility] HEPATITIS A 2005-01-09 Completed [facility] 00:00:00 [facility] HEPATITIS A 2005-01-09 Completed [facility] 00:00:00 [facility] HEPATITIS A 2005-01-09 Completed [facility] 00:00:00 [facility] HEPATITIS A 2005-01-09 Completed [facility] 00:00:00 [facility] HEPATITIS A 2005-01-09 Completed [facility] 00:00:00 [facility] HEPATITIS A 2005-01-09 Completed [facility] 00:00:00 [facility] HEPATITIS A 2005-01-09 Completed [facility] 00:00:00 [facility] HEPATITIS A 2005-01-09 Completed [facility] 00:00:00 [facility] HEPATITIS A 2005-01-09 Completed [facility] 00:00:00 [facility] HEPATITIS A 2005-01-09 Completed [facility] 00:00:00 [facility] HEPATITIS A 2005-01-09 Completed [facility] 00:00:00 [facility] HEPATITIS A 2005-01-09 Completed [facility] 00:00:00 [facility] HEPATITIS A 2005-01-09 Completed [facility] 00:00:00 [facility] HEPATITIS A 2005-01-09 Completed [facility] 00:00:00 [facility] HEPATITIS A 2005-01-09 Completed [facility] 00:00:00 [facility] HEPATITIS A 2005-01-09 Completed [facility] 00:00:00 [facility] HEPATITIS A 2005-01-09 Completed [facility] 00:00:00 [facility] HEPATITIS A 2005-01-09 Completed [facility] 00:00:00 [facility] HEPATITIS A 2005-01-09 Completed [facility] 00:00:00 [facility] HEPATITIS A 2005-01-09 Completed [facility] 00:00:00 [facility] HEPATITIS A 2005-01-09 Completed [facility] 00:00:00 [facility] HEPATITIS A 2005-01-09 Completed [facility] 00:00:00 [facility] HEPATITIS A 2005-01-09 Completed [facility] 00:00:00 [facility] HEPATITIS A 2005-01-09 Completed [facility] 00:00:00 [facility] HEPATITIS A 2005-01-09 Completed [facility] 00:00:00 [facility] HEPATITIS A 2005-01-09 Completed [facility] 00:00:00 [facility] HEPATITIS A 2005-01-09 Completed [facility] 00:00:00 [facility] HEPATITIS A 2005-01-09 Completed [facility] 00:00:00 [facility] HEPATITIS A 2005-01-09 Completed [facility] 00:00:00 [facility] HEPATITIS A 2005-01-09 Completed [facility] 00:00:00 [facility] HEPATITIS A 2005-01-09 Completed [facility] 00:00:00 [facility] HEPATITIS A 2005-01-09 Completed [facility] 00:00:00 [facility] HEPATITIS A 2005-01-09 Completed [facility] 00:00:00 [facility] HEPATITIS A 2005-01-09 Completed [facility] 00:00:00 [facility] HEPATITIS A 2005-01-09 Completed [facility] 00:00:00 [facility] HEPATITIS A 2005-01-09 Completed [facility] 00:00:00 [facility] HEPATITIS A 2005-01-09 Completed [facility] 00:00:00 [facility] HEPATITIS A 2005-01-09 Completed [facility] 00:00:00 [facility] HEPATITIS A 2005-01-09 Completed [facility] 00:00:00 [facility] HEPATITIS A 2005-01-09 Completed [facility] 00:00:00 [facility] HEPATITIS A 2005-01-09 Completed [facility] 00:00:00 [facility] HEPATITIS A 2005-01-09 Completed [facility] 00:00:00 [facility] HEPATITIS A 2005-01-09 Completed [facility] 00:00:00 [facility] HEPATITIS A 2005-01-09 Completed [facility] 00:00:00 [facility] HEPATITIS A 2005-01-09 Completed [facility] 00:00:00 [facility] HEPATITIS A 2004-05-28 Completed [facility] 00:00:00 [facility] Pneumococcal 7 2004-05-28 Completed [facility] of Conjugate, PCV7 00:00:00 [place] [facility] (Prevnar7) [facility] HEPATITIS A 2004-05-28 Completed [facility] 00:00:00 [facility] Pneumococcal 7 2004-05-28 Completed [facility] Conjugate, PCV7 00:00:00 [place] [facility] (Prevnar7) [facility] HEPATITIS A 2004-05-28 Completed [facility] 00:00:00 [facility] Pneumococcal 7 2004-05-28 Completed [facility] Conjugate, PCV7 00:00:00 [place] [facility] (Prevnar7) [facility] HEPATITIS A 2004-05-28 Completed [facility] 00:00:00 [facility] Pneumococcal 7 2004-05-28 Completed [facility] Conjugate, PCV7 00:00:00 [place] [facility] (Prevnar7) [facility] Pneumococcal 7 2004-05-28 Completed [facility] Conjugate, PCV7 00:00:00 [place] [facility] (Prevnar7) [facility] HEPATITIS A 2004-05-28 Completed [facility] 00:00:00 [facility] Pneumococcal 7 2004-05-28 Completed [facility] Conjugate, PCV7 00:00:00 [place] [facility] (Prevnar7) [facility] HEPATITIS A 2004-05-28 Completed [facility] 00:00:00 [facility] Pneumococcal 7 2004-05-28 Completed [facility] Conjugate, PCV7 00:00:00 [place] [facility] (Prevnar7) [facility] HEPATITIS A 2004-05-28 Completed [facility] 00:00:00 [facility] Pneumococcal 7 2004-05-28 Completed [facility] Conjugate, PCV7 00:00:00 [place] [facility] (Prevnar7) [facility] HEPATITIS A 2004-05-28 Completed [facility] 00:00:00 [facility] Pneumococcal 7 2004-05-28 Completed [facility] Conjugate, PCV7 00:00:00 [place] [facility] (Prevnar7) [facility] HEPATITIS A 2004-05-28 Completed [facility] 00:00:00 [facility] Pneumococcal 7 2004-05-28 Completed [facility] Conjugate, PCV7 00:00:00 [place] [facility] (Prevnar7) [facility] HEPATITIS A 2004-05-28 Completed [facility] 00:00:00 [facility] HEPATITIS A 2004-05-28 Completed [facility] 00:00:00 [facility] Pneumococcal 7 2004-05-28 Completed [facility] Conjugate, PCV7 00:00:00 [place] [facility] (Prevnar7) [facility] HEPATITIS A 2004-05-28 Completed [facility] 00:00:00 [facility] Pneumococcal 7 2004-05-28 Completed [facility] Conjugate, PCV7 00:00:00 [place] [facility] (Prevnar7) [facility] HEPATITIS A 2004-05-28 Completed [facility] 00:00:00 [facility] Pneumococcal 7 2004-05-28 Completed [facility] Conjugate, PCV7 00:00:00 [place] [facility] (Prevnar7) [facility] HEPATITIS A 2004-05-28 Completed [facility] 00:00:00 [facility] Pneumococcal 7 2004-05-28 Completed [facility] Conjugate, PCV7 00:00:00 [place] [facility] (Prevnar7) [facility] Pneumococcal 7 2004-05-28 Completed [facility] Conjugate, PCV7 00:00:00 [place] [facility] (Prevnar7) [facility] HEPATITIS A 2004-05-28 Completed [facility] 00:00:00 [facility] Pneumococcal 7 2004-05-28 Completed [facility] Conjugate, PCV7 00:00:00 [place] [facility] (Prevnar7) [facility] HEPATITIS A 2004-05-28 Completed [facility] 00:00:00 [facility] Pneumococcal 7 2004-05-28 Completed [facility] Conjugate, PCV7 00:00:00 [place] [facility] (Prevnar7) [facility] HEPATITIS A 2004-05-28 Completed [facility] 00:00:00 [facility] Pneumococcal 7 2004-05-28 Completed [facility] Conjugate, PCV7 00:00:00 [place] [facility] (Prevnar7) [facility] HEPATITIS A 2004-05-28 Completed [facility] 00:00:00 [facility] Pneumococcal 7 2004-05-28 Completed [facility] Conjugate, PCV7 00:00:00 [place] [facility] (Prevnar7) [facility] HEPATITIS A 2004-05-28 Completed [facility] 00:00:00 [facility] Pneumococcal 7 2004-05-28 Completed [facility] Conjugate, PCV7 00:00:00 [place] [facility] (Prevnar7) [facility] HEPATITIS A 2004-05-28 Completed [facility] 00:00:00 [facility] Pneumococcal 7 2004-05-28 Completed [facility] Conjugate, PCV7 00:00:00 [place] [facility] (Prevnar7) [facility] HEPATITIS A 2004-05-28 Completed [facility] 00:00:00 [facility] Pneumococcal 7 2004-05-28 Completed [facility] Conjugate, PCV7 00:00:00 [place] [facility] (Prevnar7) [facility] HEPATITIS A 2004-05-28 Completed [facility] 00:00:00 [facility] HEPATITIS A 2004-05-28 Completed [facility] 00:00:00 [facility] Pneumococcal 7 2004-05-28 Completed [facility] Conjugate, PCV7 00:00:00 [place] [facility] (Prevnar7) [facility] HEPATITIS A 2004-05-28 Completed [facility] 00:00:00 [facility] Pneumococcal 7 2004-05-28 Completed [facility] Conjugate, PCV7 00:00:00 [place] [facility] (Prevnar7) [facility] HEPATITIS A 2004-05-28 Completed [facility] 00:00:00 [facility] Pneumococcal 7 2004-05-28 Completed [facility] Conjugate, PCV7 00:00:00 [place] [facility] (Prevnar7) [facility] HEPATITIS A 2004-05-28 Completed [facility] 00:00:00 [facility] Pneumococcal 7 2004-05-28 Completed [facility] Conjugate, PCV7 00:00:00 [place] [facility] (Prevnar7) [facility] Pneumococcal 7 2004-05-28 Completed [facility] Conjugate, PCV7 00:00:00 [place] [facility] (Prevnar7) [facility] HEPATITIS A 2004-05-28 Completed [facility] 00:00:00 [facility] Pneumococcal 7 2004-05-28 Completed [facility] Conjugate, PCV7 00:00:00 [place] [facility] (Prevnar7) [facility] HEPATITIS A 2004-05-28 Completed [facility] 00:00:00 [facility] Pneumococcal 7 2004-05-28 Completed [facility] Conjugate, PCV7 00:00:00 [place] [facility] (Prevnar7) [facility] HEPATITIS A 2004-05-28 Completed [facility] 00:00:00 [facility] Pneumococcal 7 2004-05-28 Completed [facility] Conjugate, PCV7 00:00:00 [place] [facility] (Prevnar7) [facility] HEPATITIS A 2004-05-28 Completed [facility] 00:00:00 [facility] Pneumococcal 7 2004-05-28 Completed [facility] Conjugate, PCV7 00:00:00 [place] [facility] (Prevnar7) [facility] HEPATITIS A 2004-05-28 Completed [facility] 00:00:00 [facility] HEPATITIS A 2004-05-28 Completed [facility] 00:00:00 [facility] Pneumococcal 7 2004-05-28 Completed [facility] Conjugate, PCV7 00:00:00 [place] [facility] (Prevnar7) [facility] HEPATITIS A 2004-05-28 Completed [facility] 00:00:00 [facility] Pneumococcal 7 2004-05-28 Completed [facility] Conjugate, PCV7 00:00:00 [place] [facility] (Prevnar7) [facility] HEPATITIS A 2004-05-28 Completed [facility] 00:00:00 [facility] Pneumococcal 7 2004-05-28 Completed [facility] Conjugate, PCV7 00:00:00 [place] [facility] (Prevnar7) [facility] HEPATITIS A 2004-05-28 Completed [facility] 00:00:00 [facility] Pneumococcal 7 2004-05-28 Completed [facility] Conjugate, PCV7 00:00:00 [place] [facility] (Prevnar7) [facility] Pneumococcal 7 2004-05-28 Completed [facility] Conjugate, PCV7 00:00:00 [place] [facility] (Prevnar7) [facility] HEPATITIS A 2004-05-28 Completed [facility] 00:00:00 [facility] Pneumococcal 7 2004-05-28 Completed [facility] Conjugate, PCV7 00:00:00 [place] [facility] (Prevnar7) [facility] HEPATITIS A 2004-05-28 Completed [facility] 00:00:00 [facility] Pneumococcal 7 2004-05-28 Completed [facility] Conjugate, PCV7 00:00:00 [place] [facility] (Prevnar7) [facility] HEPATITIS A 2004-05-28 Completed [facility] 00:00:00 [facility] Pneumococcal 7 2004-05-28 Completed [facility] Conjugate, PCV7 00:00:00 [place] [facility] (Prevnar7) [facility] HEPATITIS A 2004-05-28 Completed [facility] 00:00:00 [facility] Pneumococcal 7 2004-05-28 Completed [facility] Conjugate, PCV7 00:00:00 [place] [facility] (Prevnar7) [facility] HEPATITIS A 2004-05-28 Completed [facility] 00:00:00 [facility] Pneumococcal 7 2004-05-28 Completed [facility] Conjugate, PCV7 00:00:00 [place] [facility] (Prevnar7) [facility] HEPATITIS A 2004-05-28 Completed [facility] 00:00:00 [facility] HEPATITIS A 2004-05-28 Completed [facility] 00:00:00 [facility] Pneumococcal 7 2004-05-28 Completed [facility] Conjugate, PCV7 00:00:00 [place] [facility] (Prevnar7) [facility] HEPATITIS A 2004-05-28 Completed [facility] 00:00:00 [facility] Pneumococcal 7 2004-05-28 Completed [facility] Conjugate, PCV7 00:00:00 [place] [facility] (Prevnar7) [facility] HEPATITIS A 2004-05-28 Completed [facility] 00:00:00 [facility] Pneumococcal 7 2004-05-28 Completed [facility] Conjugate, PCV7 00:00:00 [place] [facility] (Prevnar7) [facility] HEPATITIS A 2004-05-28 Completed [facility] 00:00:00 [facility] Pneumococcal 7 2004-05-28 Completed [facility] Conjugate, PCV7 00:00:00 [facility] ([facility] Pneumococcal 7 2004-05-28 Completed [facility] of Conjugate, PCV7 00:00:00 [facility] (Pre[facility]ar7) [place] HEPATITIS A 2004-05-28 Completed [facility] of 00:00:00 [facility] Pneumococcal 7 2004-05-28 Completed [facility] of Conjugate, PCV7 00:00:00 [facility] (Prevnar7) [place] HEPATITIS A 2004-05-28 Completed [facility] of 00:00:00 [facility] Pneumococcal 7 2004-05-28 Completed [facility] of Conjugate, PCV7 00:00:00 [place] [facility] (Prevnar7) [place] HEPATITIS A 2004-05-28 Completed [facility] of 00:00:00 [facility] HEPATITIS A 2004-05-28 Completed [facility] of 00:00:00 [facility] Pneumococcal 7 2004-05-28 Completed [facility] of Conjugate, PCV7 00:00:00 [place] [facility] (Prevnar7) [place] HEPATITIS A 2004-05-28 Completed [facility] 00:00:00 [facility] Pneumococcal 7 2004-05-28 Completed [facility] of Conjugate, PCV7 00:00:00 [facility] (Prevnar7) [facility] HEPATITIS A 2004-05-28 Completed [facility] of 00:00:00 [facility] Pneumococcal 7 2004-05-28 Completed [facility] Conjugate, PCV7 00:00:00 [facility] (Prevnar7) [facility] HEPATITIS A 2004-05-28 Completed [facility] of 00:00:00 [facility] Pneumococcal 7 2004-05-28 Completed [facility] Conjugate, PCV7 00:00:00 [facility] (Prevnar[facility]) [facility] Pneumococcal 7 2004-05-28 Completed [facility] Conjugate, PCV7 00:00:00 [facility] (Prevnar7) [facility] HEPATITIS A 2004-05-28 Completed [facility] 00:00:00 [facility] Pneumococcal 7 2004-05-28 Completed [facility] Conjugate, PCV7 00:00:00 [facility] (Prevnar7) [facility] HEPATITIS A 2004-05-28 Completed [facility] 00:00:00 [facility] Pneumococcal 7 2004-05-28 Completed [facility] Conjugate, PCV7 00:00:00 [facility] (Prevnar7) [facility] HEPATITIS A 2004-05-28 Completed [facility] 00:00:00 [facility] Pneumococcal 7 2004-05-28 Completed [facility] Conjugate, PCV7 00:00:00 [facility] (Prevnar7) [facility] HEPATITIS A 2004-05-28 Completed [facility] of 00:00:00 [facility] Pneumococcal 7 2004-05-28 Completed [facility] Conjugate, PCV7 00:00:00 [facility] (Prevnar7) [facility] HEPATITIS A 2004-05-28 Completed [facility] of 00:00:00 [facility] HEPATITIS A 2004-05-28 Completed [facility] of 00:00:00 [facility] Pneumococcal 7 2004-05-28 Completed [facility] Conjugate, PCV7 00:00:00 [facility] (Prevnar7) [facility] HEPATITIS A 2004-05-28 Completed [facility] of 00:00:00 [facility] Pneumococcal 7 2004-05-28 Completed [facility] Conjugate, PCV7 00:00:00 [facility] (Prevnar7) [facility] HEPATITIS A 2004-05-28 Completed [facility] of 00:00:00 [facility] Pneumococcal 7 2004-05-28 Completed [facility] Conjugate, PCV7 00:00:00 [facility] (Prevnar7) [facility] HEPATITIS A 2004-05-28 Completed [facility] of 00:00:00 [facility] Pneumococcal 7 2004-05-28 Completed [facility] Conjugate, PCV7 00:00:00 [facility] (Prevnar[facility]) [facility] Pneumococcal 7 2004-05-28 Completed [facility] Conjugate, PCV7 00:00:00 [facility] (Prevnar7) [facility] HEPATITIS A 2004-05-28 Completed [facility] 00:00:00 [facility] Pneumococcal 7 2004-05-28 Completed [facility] Conjugate, PCV7 00:00:00 [facility] (Prevnar7) [facility] HEPATITIS A 2004-05-28 Completed [facility] of 00:00:00 [facility] Pneumococcal 7 2004-05-28 Completed [facility] Conjugate, PCV7 00:00:00 [facility] (Prevnar7) [facility] HEPATITIS A 2004-05-28 Completed [facility] 00:00:00 [facility] Pneumococcal 7 2004-05-28 Completed [facility] Conjugate, PCV7 00:00:00 [facility] (Prevnar7) [facility] HEPATITIS A 2004-05-28 Completed [facility] of 00:00:00 [facility] Pneumococcal 7 2004-05-28 Completed [facility] Conjugate, PCV7 00:00:00 [facility] (Prevnar7) [facility] HEPATITIS A 2004-05-28 Completed [facility] of 00:00:00 [facility] HEPATITIS A 2004-05-28 Completed [facility] of 00:00:00 [facility] Pneumococcal 7 2004-05-28 Completed [facility] Conjugate, PCV7 00:00:00 [facility] (Prevnar7) [facility] HEPATITIS A 2004-05-28 Completed [facility] of 00:00:00 [facility] Pneumococcal 7 2004-05-28 Completed [facility] Conjugate, PCV7 00:00:00 [facility] (Prevnar7) [facility] HEPATITIS A 2004-05-28 Completed [facility] of 00:00:00 [facility] Pneumococcal 7 2004-05-28 Completed [facility] Conjugate, PCV7 00:00:00 [facility] (Prevnar7) [facility] HEPATITIS A 2004-05-28 Completed [facility] of 00:00:00 [facility] Pneumococcal 7 2004-05-28 Completed [facility] Conjugate, PCV7 00:00:00 [facility] (Prevnar7) [facility] HEPATITIS A 2004-05-28 Completed [facility] of 00:00:00 [facility] Pneumococcal 7 2004-05-28 Completed [facility] Conjugate, PCV7 00:00:00 [facility] (Prevnar7) [facility] Pneumococcal 7 2004-05-28 Completed [facility] Conjugate, PCV7 00:00:00 [facility] (Prevnar7) [facility] HEPATITIS A 2004-05-28 Completed [facility] of 00:00:00 [facility] Pneumococcal 7 2004-05-28 Completed [facility] of Conjugate, PCV7 00:00:00 [facility] (Prevnar7) [facility] HEPATITIS A 2004-05-28 Completed [facility] of 00:00:00 [facility] Pneumococcal 7 2004-05-28 Completed [facility] Conjugate, PCV7 00:00:00 [facility] (Prevnar7) [facility] HEPATITIS A 2004-05-28 Completed [facility] of 00:00:00 [facility] Pneumococcal 7 2004-05-28 Completed [facility] of Conjugate, PCV7 00:00:00 [facility] (Prevnar7) [facility] HEPATITIS A 2004-05-28 Completed [facility] of 00:00:00 [facility] HEPATITIS A 2004-05-28 Completed [facility] of 00:00:00 [facility] Pneumococcal 7 2004-05-28 Completed [facility] Conjugate, PCV7 00:00:00 [facility] (Prevnar7) [facility] HEPATITIS A 2004-05-28 Completed [facility] of 00:00:00 [facility] Pneumococcal 7 2004-05-28 Completed [facility] of Conjugate, PCV7 00:00:00 [place] [facility] (Prevnar7) [place] HEPATITIS A 2004-05-28 Completed [facility] of 00:00:00 [facility] Pneumococcal 7 2004-05-28 Completed [facility] of Conjugate, PCV7 00:00:00 [facility] (Prevnar[facility]) [place] HEPATITIS A 2004-05-28 Completed [facility] of 00:00:00 [facility] Pneumococcal 7 2004-05-28 Completed [facility] Conjugate, PCV7 00:00:00 [facility] (Prevnar7) [place] HEPATITIS A 2004-05-28 Completed [facility] of 00:00:00 [facility] Pneumococcal 7 2004-05-28 Completed [facility] Conjugate, PCV7 00:00:00 [facility] (Prevnar7) [facility] Pneumococcal 7 2004-05-28 Completed [facility] Conjugate, PCV7 00:00:00 [facility] (Prevnar7) [place] HEPATITIS A 2004-05-28 Completed [facility] of 00:00:00 [facility] Pneumococcal 7 2004-05-28 Completed [facility] Conjugate, PCV7 00:00:00 [facility] (Prevnar7) [facility] HEPATITIS A 2004-05-28 Completed [facility] of 00:00:00 [facility] Pneumococcal 7 2004-05-28 Completed [facility] of Conjugate, PCV7 00:00:00 [facility] (Prevnar7) [facility] HEPATITIS A 2004-05-28 Completed [facility] of 00:00:00 [facility] Pneumococcal 7 2004-05-28 Completed [facility] Conjugate, PCV7 00:00:00 [facility] (Prevnar7) [facility] HEPATITIS A 2004-05-28 Completed [facility] of 00:00:00 [facility] Pneumococcal 7 2004-05-28 Completed [facility] of Conjugate, PCV7 00:00:00 [facility] (Prevnar[facility]) [facility] HEPATITIS A 2004-05-28 Completed [facility] of 00:00:00 [facility] Pneumococcal 7 2004-05-28 Completed [facility] of Conjugate, PCV7 00:00:00 [facility] (Prevnar7) [facility] HEPATITIS A 2004-05-28 Completed [facility] of 00:00:00 [facility] Pneumococcal 7 2004-05-28 Completed [facility] of Conjugate, PCV7 00:00:00 [facility] (Prevnar7) [facility] HEPATITIS A 2004-05-28 Completed [facility] of 00:00:00 [facility] HEPATITIS A 2004-05-28 Completed [facility] of 00:00:00 [facility] Pneumococcal 7 2004-05-28 Completed [facility] of Conjugate, PCV7 00:00:00 [facility] ([facility] HIB 4 Dose Schedule 2003-08-04 Completed Unive rsity of 00:00:00 [facility] DTAP 2003-08-04 Completed [facility] of 00:00:00 [facility] HIB 4 Dose Schedule 2003-08-04 Completed Unive rsity of 00:00:00 [facility] DTAP 2003-08-04 Completed [facility] of 00:00:00 [facility] HIB 4 Dose Schedule 2003-08-04 Completed Unive rsity of 00:00:00 [facility] DTAP 2003-08-04 Completed [facility] of 00:00:00 [facility] HIB 4 Dose Schedule 2003-08-04 Completed Unive rsity of 00:00:00 [facility] DTAP 2003-08-04 Completed [facility] of 00:00:00 [facility] HIB 4 Dose Schedule 2003-08-04 Completed Unive rsity of 00:00:00 [facility] DTAP 2003-08-04 Completed [facility] of 00:00:00 [facility] HIB 4 Dose Schedule 2003-08-04 Completed Unive rsity of 00:00:00 [facility] DTAP 2003-08-04 Completed [facility] of 00:00:00 [facility] HIB 4 Dose Schedule 2003-08-04 Completed Unive rsity of 00:00:00 [facility] DTAP 2003-08-04 Completed [facility] of 00:00:00 [facility] HIB 4 Dose Schedule 2003-08-04 Completed Unive rsity of 00:00:00 [facility] DTAP 2003-08-04 Completed [facility] of 00:00:00 [facility] DTAP 2003-08-04 Completed [facility] 00:00:00 [facility] [place] HIB 4 Dose Schedule 2003-08-04 Completed Unive rsity of 00:00:00 [facility] HIB 4 Dose Schedule 2003-08-04 Completed Unive rsity of 00:00:00 [facility] DTAP 2003-08-04 Completed [facility] 00:00:00 [facility] [place] HIB 4 Dose Schedule 2003-08-04 Completed Unive rsity of 00:00:00 [facility] DTAP 2003-08-04 Completed [facility] 00:00:00 [facility] [place] HIB 4 Dose Schedule 2003-08-04 Completed Unive rsity of 00:00:00 [facility] DTAP 2003-08-04 Completed [facility] 00:00:00 [facility] [place] HIB 4 Dose Schedule 2003-08-04 Completed Unive rsity of 00:00:00 [facility] DTAP 2003-08-04 Completed [facility] 00:00:00 [facility] [place] HIB 4 Dose Schedule 2003-08-04 Completed Unive rsity of 00:00:00 [facility] DTAP 2003-08-04 Completed [facility] 00:00:00 [facility] [place] HIB 4 Dose Schedule 2003-08-04 Completed Unive rsity of 00:00:00 [facility] DTAP 2003-08-04 Completed [facility] 00:00:00 [facility] [place] HIB 4 Dose Schedule 2003-08-04 Completed Unive rsity of 00:00:00 [facility] DTAP 2003-08-04 Completed [facility] 00:00:00 [facility] [place] HIB 4 Dose Schedule 2003-08-04 Completed Unive rsity of 00:00:00 [facility] DTAP 2003-08-04 Completed [facility] of 00:00:00 [facility] HIB 4 Dose Schedule 2003-08-04 Completed Unive rsity of 00:00:00 [facility] DTAP 2003-08-04 Completed [facility] of 00:00:00 [facility] HIB 4 Dose Schedule 2003-08-04 Completed Unive rsity of 00:00:00 [facility] DTAP 2003-08-04 Completed [facility] of 00:00:00 [facility] HIB 4 Dose Schedule 2003-08-04 Completed Unive rsity of 00:00:00 [facility] DTAP 2003-08-04 Completed [facility] of 00:00:00 [facility] DTAP 2003-08-04 Completed [facility] of 00:00:00 [facility] HIB 4 Dose Schedule 2003-08-04 Completed Unive rsity of 00:00:00 [facility] HIB 4 Dose Schedule 2003-08-04 Completed Unive rsity of 00:00:00 [facility] DTAP 2003-08-04 Completed [facility] of 00:00:00 [facility] HIB 4 Dose Schedule 2003-08-04 Completed Unive rsity of 00:00:00 [facility] DTAP 2003-08-04 Completed [facility] of 00:00:00 [facility] HIB 4 Dose Schedule 2003-08-04 Completed Unive rsity of 00:00:00 [facility] DTAP 2003-08-04 Completed [facility] of 00:00:00 [facility] HIB 4 Dose Schedule 2003-08-04 Completed Unive rsity of 00:00:00 [facility] DTAP 2003-08-04 Completed [facility] of 00:00:00 [facility] HIB 4 Dose Schedule 2003-08-04 Completed Unive rsity of 00:00:00 [facility] DTAP 2003-08-04 Completed [facility] of 00:00:00 [facility] HIB 4 Dose Schedule 2003-08-04 Completed Unive rsity of 00:00:00 [facility] DTAP 2003-08-04 Completed [facility] of 00:00:00 [facility] HIB 4 Dose Schedule 2003-08-04 Completed Unive rsity of 00:00:00 [facility] DTAP 2003-08-04 Completed [facility] of 00:00:00 [facility] HIB 4 Dose Schedule 2003-08-04 Completed Unive rsity of 00:00:00 [facility] DTAP 2003-08-04 Completed [facility] of 00:00:00 [facility] DTAP 2003-08-04 Completed [facility] of 00:00:00 [facility] HIB 4 Dose Schedule 2003-08-04 Completed Unive rsity of 00:00:00 [facility] HIB 4 Dose Schedule 2003-08-04 Completed Unive rsity of 00:00:00 [facility] DTAP 2003-08-04 Completed [facility] of 00:00:00 [facility] HIB 4 Dose Schedule 2003-08-04 Completed Unive rsity of 00:00:00 [facility] DTAP 2003-08-04 Completed [facility] of 00:00:00 [facility] HIB 4 Dose Schedule 2003-08-04 Completed Unive rsity of 00:00:00 [facility] DTAP 2003-08-04 Completed [facility] 00:00:00 [facility] [place] HIB 4 Dose Schedule 2003-08-04 Completed Unive rsity of 00:00:00 [facility] DTAP 2003-08-04 Completed [facility] of 00:00:00 [facility] [place] HIB 4 Dose Schedule 2003-08-04 Completed Unive rsity of 00:00:00 [facility] DTAP 2003-08-04 Completed [facility] of 00:00:00 [facility] [place] HIB 4 Dose Schedule 2003-08-04 Completed Unive rsity of 00:00:00 [facility] DTAP 2003-08-04 Completed [facility] 00:00:00 [facility] [place] HIB 4 Dose Schedule 2003-08-04 Completed Unive rsity of 00:00:00 [facility] DTAP 2003-08-04 Completed [facility] of 00:00:00 [facility] HIB 4 Dose Schedule 2003-08-04 Completed Unive rsity of 00:00:00 [facility] DTAP 2003-08-04 Completed [facility] 00:00:00 [facility] [place] HIB 4 Dose Schedule 2003-08-04 Completed Unive rsity of 00:00:00 [facility] DTAP 2003-08-04 Completed [facility] of 00:00:00 [facility] DTAP 2003-08-04 Completed [facility] 00:00:00 [facility] [place] HIB 4 Dose Schedule 2003-08-04 Completed Unive rsity of 00:00:00 [facility] [place] HIB 4 Dose Schedule 2003-08-04 Completed Unive rsity of 00:00:00 [facility] DTAP 2003-08-04 Completed [facility] 00:00:00 [facility] [place] HIB 4 Dose Schedule 2003-08-04 Completed Unive rsity of 00:00:00 [facility] DTAP 2003-08-04 Completed [facility] 00:00:00 [facility] [place] HIB 4 Dose Schedule 2003-08-04 Completed Unive rsity of 00:00:00 [facility] DTAP 2003-08-04 Completed [facility] of 00:00:00 [facility] HIB 4 Dose Schedule 2003-08-04 Completed Unive rsity of 00:00:00 [facility] DTAP 2003-08-04 Completed [facility] 00:00:00 [facility] HIB 4 Dose Schedule 2003-08-04 Completed Unive rsity of 00:00:00 [facility] DTAP 2003-08-04 Completed [facility] 00:00:00 [facility] [place] HIB 4 Dose Schedule 2003-08-04 Completed Unive rsity of 00:00:00 [facility] DTAP 2003-08-04 Completed [facility] of 00:00:00 [facility] HIB 4 Dose Schedule 2003-08-04 Completed Unive rsity of 00:00:00 [facility] DTAP 2003-08-04 Completed [facility] 00:00:00 [facility] DTAP 2003-08-04 Completed [facility] of 00:00:00 [facility] HIB 4 Dose Schedule 2003-08-04 Completed Unive rsity of 00:00:00 [facility] HIB 4 Dose Schedule 2003-08-04 Completed Unive rsity of 00:00:00 [facility] DTAP 2003-08-04 Completed [facility] 00:00:00 [facility] [place] HIB 4 Dose Schedule 2003-08-04 Completed Unive rsity of 00:00:00 [facility] DTAP 2003-08-04 Completed [facility] 00:00:00 [facility] [place] HIB 4 Dose Schedule 2003-08-04 Completed Unive rsity of 00:00:00 [facility] DTAP 2003-08-04 Completed [facility] 00:00:00 [facility] [place] HIB 4 Dose Schedule 2003-08-04 Completed Unive rsity of 00:00:00 [facility] DTAP 2003-08-04 Completed [facility] 00:00:00 [facility] [place] HIB 4 Dose Schedule 2003-08-04 Completed Unive rsity of 00:00:00 [facility] DTAP 2003-08-04 Completed [facility] 00:00:00 [facility] HIB 4 Dose Schedule 2003-08-04 Completed Unive rsity of 00:00:00 [facility] DTAP 2003-08-04 Completed [facility] of 00:00:00 [facility] HIB 4 Dose Schedule 2003-08-04 Completed Unive rsity of 00:00:00 [facility] DTAP 2003-08-04 Completed [facility] of 00:00:00 [facility] DTAP 2003-08-04 Completed [facility] of 00:00:00 [facility] HIB 4 Dose Schedule 2003-08-04 [...] Schedule 2003-08-04 Completed Unive rsity of 00:00:00 [facility] DTAP 2003-08-04 Completed [facility] 00:00:00 [facility] DTAP 2003-08-04 Completed [facility] of 00:00:00 [facility] HIB 4 Dose Schedule 2003-08-04 [...] Branch DTAP 2003-08-04 Completed [facility] of 00:00:00 [facility] HIB 4 Dose Schedule 2003-08-04 Completed Unive rsity of 00:00:00 [facility] DTAP 2003-08-04 Completed [facility] 00:00:00 [facility] HIB 4 Dose Schedule 2003-08-04 Completed Unive rsity of 00:00:00 [facility] DTAP 2003-08-04 Completed [facility] 00:00:00 [facility] [place] HIB 4 Dose Schedule 2003-08-04 Completed Unive rsity of 00:00:00 [facility] DTAP 2003-08-04 Completed [facility] 00:00:00 [facility] [place] HIB 4 Dose Schedule 2003-08-04 Completed Unive rsity of 00:00:00 [facility] DTAP 2003-08-04 Completed [facility] 00:00:00 [facility] [place] DTAP 2003-08-04 Completed [facility] 00:00:00 [facility] HIB 4 Dose Schedule 2003-08-04 Completed Unive rsity of 00:00:00 [facility] HIB 4 Dose Schedule 2003-08-04 Completed Unive rsity of 00:00:00 [facility] DTAP 2003-08-04 Completed [facility] 00:00:00 [facility] [place] HIB 4 Dose Schedule 2003-08-04 Completed Unive rsity of 00:00:00 [facility] DTAP 2003-08-04 Completed [facility] 00:00:00 [facility] [place] HIB 4 Dose Schedule 2003-08-04 Completed Unive rsity of 00:00:00 [facility] [place] DTAP 2003-08-04 Completed [facility] 00:00:00 [facility] [place] HIB 4 Dose Schedule 2003-08-04 Completed Unive rsity of 00:00:00 [facility] DTAP 2003-08-04 Completed [facility] 00:00:00 [facility] [place] HIB 4 Dose Schedule 2003-08-04 Completed Unive [...] Schedule 2003-08-04 Completed Unive rsity of 00:00:00 [facility] DTAP 2003-08-04 Completed [facility] 00:00:00 [facility] HIB 4 Dose Schedule 2003-08-04 Completed Unive rsity of 00:00:00 [facility] DTAP 2003-08-04 Completed [facility] 00:00:00 [facility] HIB 4 Dose Schedule 2003-08-04 Completed Unive rsity of 00:00:00 [facility] DTAP 2003-08-04 Completed [facility] 00:00:00 [facility] HIB 4 Dose Schedule 2003-08-04 Completed Unive rsity of 00:00:00 [facility] DTAP 2003-08-04 Completed [facility] 00:00:00 [facility] HIB 4 Dose Schedule 2003-08-04 Completed Unive rsity of 00:00:00 [facility] DTAP 2003-08-04 Completed [facility] 00:00:00 [facility] DTAP 2003-08-04 Completed [facility] of 00:00:00 [facility] HIB 4 Dose Schedule 2003-08-04 Completed Unive rsity of 00:00:00 [facility] HIB 4 Dose Schedule 2003-08-04 Completed Unive rsity of 00:00:00 [facility] DTAP 2003-08-04 Completed [facility] of 00:00:00 [facility] MMR 2003-05-05 Completed [facility] of 00:00:00 [facility] Polio (IPV/OPV) 2003-05-05 Completed Universit y [facility] 00:00:00 [facility] Pneumococcal 7 2003-05-05 Completed [facility] of Conjugate, PCV7 00:00:00 [facility] (Prevnar7) [facility] MMR 2003-05-05 Completed [facility] of 00:00:00 [facility] MMR 2003-05-05 Completed [facility] of 00:00:00 [facility] Polio (IPV/OPV) 2003-05-05 Completed Universit y [facility] 00:00:00 [facility] Pneumococcal 7 2003-05-05 Completed [facility] of Conjugate, PCV7 00:00:00 [facility] (Prevnar7) [facility] Polio (IPV/OPV) 2003-05-05 Completed Universit y [facility] 00:00:00 [facility] MMR 2003-05-05 Completed [facility] of 00:00:00 [facility] Polio (IPV/OPV) 2003-05-05 Completed Universit y [facility] 00:00:00 [facility] Pneumococcal 7 2003-05-05 Completed [facility] of Conjugate, PCV7 00:00:00 [facility] (Pre[facility]ar[facility] 2003-05-05 Completed [facility] of 00:00:00 [facility] Polio (IPV/OPV) 2003-05-05 Completed Universit y [facility] 00:00:00 [facility] Pneumococcal 7 2003-05-05 Completed [facility] Conjugate, PCV7 00:00:00 [facility] (Pre[facility]ar[facility]) [facility] Pneumococcal 7 2003-05-05 Completed [facility] Conjugate, PCV7 00:00:00 [facility] (Prevnar[facility]) [facility] 2003-05-05 Completed [facility] of 00:00:00 [facility] Polio (IPV/OPV) 2003-05-05 Completed Universit y [facility] 00:00:00 [facility] Pneumococcal 7 2003-05-05 Completed [facility] of Conjugate, PCV7 00:00:00 [facility] (Pre[facility]ar[facility]) [facility] 2003-05-05 Completed [facility] of 00:00:00 [facility] Polio (IPV/OPV) 2003-05-05 Completed Universit y of 00:00:00 [facility] Pneumococcal 7 2003-05-05 Completed [facility] of Conjugate, PCV7 00:00:00 [facility] (Prevnar[facility]) [facility] 2003-05-05 Completed [facility] of 00:00:00 [facility] Polio (IPV/OPV) 2003-05-05 Completed [facility]it [facility] 00:00:00 [facility] Pneumococcal 7 2003-05-05 Completed [facility] of Conjugate, PCV7 00:00:00 [facility] (Pre[facility]ar[facility] 2003-05-05 Completed [facility] of 00:00:00 [facility] Polio (IPV/OPV) 2003-05-05 Completed [facility]it [facility] 00:00:00 [facility] Pneumococcal 7 2003-05-05 Completed [facility] of Conjugate, PCV7 00:00:00 [facility] (Prevnar[facility] 2003-05-05 Completed [facility] 00:00:00 [facility] Polio (IPV/OPV) 2003-05-05 Completed [facility] 00:00:00 [facility] Pneumococcal 7 2003-05-05 Completed [facility] Conjugate, PCV7 00:00:00 [facility] (Prevnar7) Branch [facility] 2003-05-05 Completed [facility] 00:00:00 [facility] Polio (IPV/OPV) 2003-05-05 Completed [facility] 00:00:00 [facility] Pneumococcal 7 2003-05-05 Completed University of Conjugate, PCV7 00:00:00 [place] [facility] (Pre[facility]ar7) [facility] 2003-05-05 Completed [facility] 00:00:00 [facility] 2003-05-05 Completed [facility] 00:00:00 [facility] Polio (IPV/OPV) 2003-05-05 Completed [facility] 00:00:00 [facility] Pneumococcal 7 2003-05-05 Completed [facility] of Conjugate, PCV7 00:00:00 [place] [facility] (Prevnar7) [facility] 2003-05-05 Completed [facility] 00:00:00 [facility] Polio (IPV/OPV) 2003-05-05 Completed [facility] 00:00:00 [facility] Polio (IPV/OPV) 2003-05-05 Completed [facility] 00:00:00 [facility] Pneumococcal 7 2003-05-05 Completed [facility] Conjugate, PCV7 00:00:00 [place] [facility] (Prevnar7) [facility] 2003-05-05 Completed [facility] 00:00:00 [facility] Polio (IPV/OPV) 2003-05-05 Completed [facility] 00:00:00 [facility] Pneumococcal 7 2003-05-05 Completed [facility] Conjugate, PCV7 00:00:00 [place] [facility] (Prevnar7) [facility] Pneumococcal 7 2003-05-05 Completed [facility] Conjugate, PCV7 00:00:00 [place] [facility] (Prevnar7) [facility] 2003-05-05 Completed [facility] 00:00:00 [facility] Polio (IPV/OPV) 2003-05-05 Completed [facility] 00:00:00 [facility] Pneumococcal 7 2003-05-05 Completed [facility] Conjugate, PCV7 00:00:00 [place] [facility] (Prevnar7) [facility] 2003-05-05 Completed [facility] 00:00:00 [facility] Polio (IPV/OPV) 2003-05-05 Completed [facility] 00:00:00 [facility] Pneumococcal 7 2003-05-05 Completed [facility] Conjugate, PCV7 00:00:00 [place] [facility] (Prevnar7) [facility] 2003-05-05 Completed [facility] 00:00:00 [facility] Polio (IPV/OPV) 2003-05-05 Completed [facility] 00:00:00 [facility] Pneumococcal 7 2003-05-05 Completed [facility] Conjugate, PCV7 00:00:00 [place] [facility] (Prevnar7) [facility] 2003-05-05 Completed [facility] 00:00:00 [facility] Polio (IPV/OPV) 2003-05-05 Completed [facility] 00:00:00 [facility] Pneumococcal 7 2003-05-05 Completed [facility] Conjugate, PCV7 00:00:00 [place] [facility] (Prevnar7) [facility] 2003-05-05 Completed [facility] 00:00:00 [facility] Polio (IPV/OPV) 2003-05-05 Completed [facility] 00:00:00 [facility] Pneumococcal 7 2003-05-05 Completed [facility] Conjugate, PCV7 00:00:00 [place] [facility] (Prevnar7) [facility] 2003-05-05 Completed [facility] 00:00:00 [facility] Polio (IPV/OPV) 2003-05-05 Completed [facility] 00:00:00 [facility] Pneumococcal 7 2003-05-05 Completed [facility] Conjugate, PCV7 00:00:00 [place] [facility] (Prevnar7) [facility] 2003-05-05 Completed [facility] 00:00:00 [facility] Polio (IPV/OPV) 2003-05-05 Completed [facility] 00:00:00 [facility] Pneumococcal 7 2003-05-05 Completed [facility] Conjugate, PCV7 00:00:00 [place] [facility] (Prevnar7) [facility] 2003-05-05 Completed [facility] 00:00:00 [facility] Polio (IPV/OPV) 2003-05-05 Completed [facility] 00:00:00 [facility] Pneumococcal 7 2003-05-05 Completed [facility] Conjugate, PCV7 00:00:00 [place] [facility] (Prevnar7) [facility] 2003-05-05 Completed [facility] 00:00:00 [facility] 2003-05-05 Completed [facility] 00:00:00 [facility] Polio (IPV/OPV) 2003-05-05 Completed [facility] 00:00:00 [facility] Pneumococcal 7 2003-05-05 Completed [facility] Conjugate, PCV7 00:00:00 [place] [facility] (Prevnar7) [facility] Polio (IPV/OPV) 2003-05-05 Completed [facility] 00:00:00 [facility] 2003-05-05 Completed [facility] 00:00:00 [facility] Polio (IPV/OPV) 2003-05-05 Completed [facility] 00:00:00 [facility] Pneumococcal 7 2003-05-05 Completed [facility] Conjugate, PCV7 00:00:00 [place] [facility] (Prevnar7) [facility] 2003-05-05 Completed [facility] 00:00:00 [facility] Polio (IPV/OPV) 2003-05-05 Completed [facility] 00:00:00 [facility] Pneumococcal 7 2003-05-05 Completed [facility] of Conjugate, PCV7 00:00:00 [place] [facility] (Prevnar7) [place] Pneumococcal 7 2003-05-05 Completed [facility] Conjugate, PCV7 00:00:00 [place] [facility] (Prevnar7) [facility] 2003-05-05 Completed [facility] 00:00:00 [facility] Polio (IPV/OPV) 2003-05-05 Completed [facility] 00:00:00 [facility] Pneumococcal 7 2003-05-05 Completed [facility] Conjugate, PCV7 00:00:00 [place] [facility] (Prevnar7) [facility] 2003-05-05 Completed [facility] 00:00:00 [facility] Polio (IPV/OPV) 2003-05-05 Completed [facility] 00:00:00 [facility] Pneumococcal 7 2003-05-05 Completed [facility] Conjugate, PCV7 00:00:00 [place] [facility] (Prevnar7) [facility] 2003-05-05 Completed [facility] 00:00:00 [facility] Polio (IPV/OPV) 2003-05-05 Completed [facility] 00:00:00 [facility] Pneumococcal 7 2003-05-05 Completed [facility] Conjugate, PCV7 00:00:00 [place] [facility] (Prevnar7) [facility] 2003-05-05 Completed [facility] 00:00:00 [facility] Polio (IPV/OPV) 2003-05-05 Completed [facility] 00:00:00 [facility] Pneumococcal 7 2003-05-05 Completed [facility] Conjugate, PCV7 00:00:00 [place] [facility] (Prevnar7) [facility] 2003-05-05 Completed [facility] of 00:00:00 [facility] Polio (IPV/OPV) 2003-05-05 Completed [facility] 00:00:00 [facility] Pneumococcal 7 2003-05-05 Completed [facility] Conjugate, PCV7 00:00:00 [place] [facility] (Prevnar7) [facility] 2003-05-05 Completed [facility] 00:00:00 [facility] 2003-05-05 Completed [facility] 00:00:00 [facility] Polio (IPV/OPV) 2003-05-05 Completed [facility] 00:00:00 [facility] Pneumococcal 7 2003-05-05 Completed [facility] Conjugate, PCV7 00:00:00 [place] [facility] (Prevnar7) Branch Polio (IPV/OPV) 2003-05-05 Completed [facility] 00:00:00 [facility] 2003-05-05 Completed [facility] 00:00:00 [facility] Polio (IPV/OPV) 2003-05-05 Completed [facility] 00:00:00 [facility] Pneumococcal 7 2003-05-05 Completed [facility] Conjugate, PCV7 00:00:00 [place] [facility] (Prevnar7) [facility] 2003-05-05 Completed [facility] 00:00:00 [facility] Polio (IPV/OPV) 2003-05-05 Completed [facility] 00:00:00 [facility] Pneumococcal 7 2003-05-05 Completed [facility] Conjugate, PCV7 00:00:00 [place] [facility] (Prevnar7) [facility] Pneumococcal 7 2003-05-05 Completed [facility] Conjugate, PCV7 00:00:00 [place] [facility] (Prevnar7) [facility] 2003-05-05 Completed [facility] 00:00:00 [facility] Polio (IPV/OPV) 2003-05-05 Completed [facility] 00:00:00 [facility] Pneumococcal 7 2003-05-05 Completed [facility] Conjugate, PCV7 00:00:00 [place] [facility] (Prevnar7) [facility] 2003-05-05 Completed [facility] 00:00:00 [facility] Polio (IPV/OPV) 2003-05-05 Completed [facility] 00:00:00 [facility] Pneumococcal 7 2003-05-05 Completed [facility] Conjugate, PCV7 00:00:00 [place] [facility] (Prevnar7) [facility] 2003-05-05 Completed [facility] 00:00:00 [facility] Polio (IPV/OPV) 2003-05-05 Completed [facility] 00:00:00 [facility] Pneumococcal 7 2003-05-05 Completed [facility] Conjugate, PCV7 00:00:00 [place] [facility] (Prevnar7) [facility] 2003-05-05 Completed [facility] 00:00:00 [facility] Polio (IPV/OPV) 2003-05-05 Completed [facility] 00:00:00 [facility] Pneumococcal 7 2003-05-05 Completed [facility] Conjugate, PCV7 00:00:00 [place] [facility] (Prevnar7) [facility] 2003-05-05 Completed [facility] 00:00:00 [facility] Polio (IPV/OPV) 2003-05-05 Completed [facility] 00:00:00 [facility] Pneumococcal 7 2003-05-05 Completed [facility] Conjugate, PCV7 00:00:00 [place] [facility] (Prevnar7) [facility] 2003-05-05 Completed [facility] 00:00:00 [facility] Polio (IPV/OPV) 2003-05-05 Completed [facility] 00:00:00 [facility] Pneumococcal 7 2003-05-05 Completed [facility] Conjugate, PCV7 00:00:00 [place] [facility] (Prevnar7) [facility] 2003-05-05 Completed [facility] 00:00:00 [facility] Polio (IPV/OPV) 2003-05-05 Completed [facility] 00:00:00 [facility] 2003-05-05 Completed [facility] 00:00:00 [facility] Pneumococcal 7 2003-05-05 Completed [facility] Conjugate, PCV7 00:00:00 [place] [facility] (Prevnar7) [facility] 2003-05-05 Completed [facility] 00:00:00 [facility] Polio (IPV/OPV) 2003-05-05 Completed [facility] 00:00:00 [facility] Pneumococcal 7 2003-05-05 Completed [facility] Conjugate, PCV7 00:00:00 [place] [facility] (Prevnar7) Branch Polio (IPV/OPV) 2003-05-05 Completed [facility] 00:00:00 [facility] 2003-05-05 Completed [facility] 00:00:00 [facility] Polio (IPV/OPV) 2003-05-05 Completed [facility] 00:00:00 [facility] Pneumococcal 7 2003-05-05 Completed [facility] Conjugate, PCV7 00:00:00 [place] [facility] (Prevnar7) Branch Pneumococcal 7 2003-05-05 Completed [facility] Conjugate, PCV7 00:00:00 [place] [facility] (Prevnar7) [facility] 2003-05-05 Completed [facility] 00:00:00 [facility] Polio (IPV/OPV) 2003-05-05 Completed [facility] 00:00:00 [facility] Pneumococcal 7 2003-05-05 Completed [facility] Conjugate, PCV7 00:00:00 [place] [facility] (Prevnar7) [facility] 2003-05-05 Completed [facility] 00:00:00 [facility] Polio (IPV/OPV) 2003-05-05 Completed [facility] 00:00:00 [facility] Pneumococcal 7 2003-05-05 Completed [facility] Conjugate, PCV7 00:00:00 [place] [facility] (Prevnar7) [facility] 2003-05-05 Completed [facility] 00:00:00 [facility] Polio (IPV/OPV) 2003-05-05 Completed [facility] 00:00:00 [facility] Pneumococcal 7 2003-05-05 Completed [facility] Conjugate, PCV7 00:00:00 [place] [facility] (Prevnar7) [facility] 2003-05-05 Completed [facility] 00:00:00 [facility] Polio (IPV/OPV) 2003-05-05 Completed [facility] 00:00:00 [facility] Pneumococcal 7 2003-05-05 Completed [facility] Conjugate, PCV7 00:00:00 [place] [facility] (Prevnar7) [facility] 2003-05-05 Completed [facility] 00:00:00 [facility] 2003-05-05 Completed [facility] 00:00:00 [facility] Polio (IPV/OPV) 2003-05-05 Completed [facility] 00:00:00 [facility] Polio (IPV/OPV) 2003-05-05 Completed [facility] 00:00:00 [facility] Pneumococcal 7 2003-05-05 Completed [facility] Conjugate, PCV7 00:00:00 [place] [facility] (Prevnar7) [facility] 2003-05-05 Completed [facility] 00:00:00 [facility] Polio (IPV/OPV) 2003-05-05 Completed [facility] 00:00:00 [facility] Pneumococcal 7 2003-05-05 Completed [facility] Conjugate, PCV7 00:00:00 [place] [facility] (Prevnar7) Branch Pneumococcal 7 2003-05-05 Completed [facility] Conjugate, PCV7 00:00:00 [place] [facility] (Prevnar7) [facility] 2003-05-05 Completed [facility] 00:00:00 [facility] Polio (IPV/OPV) 2003-05-05 Completed [facility] 00:00:00 [facility] Pneumococcal 7 2003-05-05 Completed [facility] Conjugate, PCV7 00:00:00 [place] [facility] (Prevnar7) [facility] 2003-05-05 Completed [facility] 00:00:00 [facility] Polio (IPV/OPV) 2003-05-05 Completed [facility] 00:00:00 [facility] Pneumococcal 7 2003-05-05 Completed [facility] Conjugate, PCV7 00:00:00 [place] [facility] (Prevnar7) [facility] 2003-05-05 Completed [facility] 00:00:00 [facility] Polio (IPV/OPV) 2003-05-05 Completed [facility] 00:00:00 [facility] Pneumococcal 7 2003-05-05 Completed [facility] Conjugate, PCV7 00:00:00 [place] [facility] (Prevnar7) [facility] 2003-05-05 Completed [facility] 00:00:00 [facility] Polio (IPV/OPV) 2003-05-05 Completed [facility] 00:00:00 [facility] Pneumococcal 7 2003-05-05 Completed [facility] Conjugate, PCV7 00:00:00 [place] [facility] (Prevnar7) [facility] 2003-05-05 Completed [facility] 00:00:00 [facility] Polio (IPV/OPV) 2003-05-05 Completed [facility] 00:00:00 [facility] Pneumococcal 7 2003-05-05 Completed [facility] Conjugate, PCV7 00:00:00 [place] [facility] (Prevnar7) [facility] 2003-05-05 Completed [facility] 00:00:00 [facility] 2003-05-05 Completed [facility] 00:00:00 [facility] Polio (IPV/OPV) 2003-05-05 Completed [facility] 00:00:00 [facility] Pneumococcal 7 2003-05-05 Completed [facility] Conjugate, PCV7 00:00:00 [place] [facility] (Prevnar7) [facility] Polio (IPV/OPV) 2003-05-05 Completed [facility] 00:00:00 [facility] MMR 2003-05-05 Completed [facility] 00:00:00 [facility] Polio (IPV/OPV) 2003-05-05 Completed [facility] 00:00:00 [facility] Pneumococcal 7 2003-05-05 Completed [facility] Conjugate, PCV7 00:00:00 [place] [facility] (Prevnar7) [facility] MMR 2003-05-05 Completed [facility] 00:00:00 [facility] Polio (IPV/OPV) 2003-05-05 Completed [facility] 00:00:00 [facility] Pneumococcal 7 2003-05-05 Completed [facility] Conjugate, PCV7 00:00:00 [place] [facility] (Prevnar7) Branch Pneumococcal 7 2003-05-05 Completed [facility] Conjugate, PCV7 00:00:00 [place] [facility] (Prevnar7) [facility] 2003-05-05 Completed [facility] 00:00:00 [facility] Polio (IPV/OPV) 2003-05-05 Completed [facility] 00:00:00 [facility] Pneumococcal 7 2003-05-05 Completed [facility] Conjugate, PCV7 00:00:00 [place] [facility] (Prevnar7) [facility] 2003-05-05 Completed [facility] 00:00:00 [facility] Polio (IPV/OPV) 2003-05-05 Completed [facility] 00:00:00 [facility] Pneumococcal 7 2003-05-05 Completed [facility] Conjugate, PCV7 00:00:00 [place] [facility] (Prevnar7) [facility] 2003-05-05 Completed [facility] 00:00:00 [facility] Polio (IPV/OPV) 2003-05-05 Completed [facility] 00:00:00 [facility] Pneumococcal 7 2003-05-05 Completed [facility] Conjugate, PCV7 00:00:00 [place] [facility] (Prevnar7) [facility] 2003-05-05 Completed [facility] of 00:00:00 [facility] Polio (IPV/OPV) 2003-05-05 Completed [facility] 00:00:00 [facility] Pneumococcal 7 2003-05-05 Completed [facility] Conjugate, PCV7 00:00:00 [place] [facility] (Prevnar7) [facility] 2003-05-05 Completed [facility] 00:00:00 [facility] Polio (IPV/OPV) 2003-05-05 Completed [facility] 00:00:00 [facility] Pneumococcal 7 2003-05-05 Completed [facility] Conjugate, PCV7 00:00:00 [place] [facility] (Prevnar7) [facility] 2003-05-05 Completed [facility] 00:00:00 [facility] Polio (IPV/OPV) 2003-05-05 Completed [facility] 00:00:00 [facility] Pneumococcal 7 2003-05-05 Completed [facility] Conjugate, PCV7 00:00:00 [place] [facility] (Prevnar7) [facility] 2003-05-05 Completed [facility] 00:00:00 [facility] 2003-05-05 Completed [facility] 00:00:00 [facility] Polio (IPV/OPV) 2003-05-05 Completed [facility] 00:00:00 [facility] Pneumococcal 7 2003-05-05 Completed [facility] Conjugate, PCV7 00:00:00 [place] [facility] (Prevnar7) [place] Polio (IPV/OPV) 2003-05-05 Completed [facility] 00:00:00 [facility] 2003-05-05 Completed [facility] 00:00:00 [facility] Polio (IPV/OPV) 2003-05-05 Completed [facility] 00:00:00 [facility] Pneumococcal 7 2003-05-05 Completed [facility] Conjugate, PCV7 00:00:00 [place] [facility] (Prevnar7) [facility] Pneumococcal 7 2003-05-05 Completed [facility] Conjugate, PCV7 00:00:00 [place] [facility] (Prevnar7) [facility] 2003-05-05 Completed [facility] 00:00:00 [facility] Polio (IPV/OPV) 2003-05-05 Completed [facility] 00:00:00 [facility] Pneumococcal 7 2003-05-05 Completed [facility] Conjugate, PCV7 00:00:00 [place] [facility] (Prevnar7) [facility] 2003-05-05 Completed [facility] 00:00:00 [facility] Polio (IPV/OPV) 2003-05-05 Completed [facility] 00:00:00 [facility] Pneumococcal 7 2003-05-05 Completed [facility] Conjugate, PCV7 00:00:00 [place] [facility] (Prevnar7) [facility] 2003-05-05 Completed [facility] 00:00:00 [facility] Polio (IPV/OPV) 2003-05-05 Completed [facility] 00:00:00 [facility] Pneumococcal 7 2003-05-05 Completed [facility] Conjugate, PCV7 00:00:00 [place] [facility] (Prevnar7) [facility] 2003-05-05 Completed [facility] 00:00:00 [facility] Polio (IPV/OPV) 2003-05-05 Completed [facility] 00:00:00 [facility] Pneumococcal 7 2003-05-05 Completed [facility] Conjugate, PCV7 00:00:00 [place] [facility] (Prevnar7) [facility] 2003-05-05 Completed [facility] 00:00:00 [facility] Polio (IPV/OPV) 2003-05-05 Completed [facility] 00:00:00 [facility] Pneumococcal 7 2003-05-05 Completed [facility] Conjugate, PCV7 00:00:00 [facility] (Prevnar7) Branch [facility] 2003-05-05 Completed [facility] 00:00:00 [facility] Polio (IPV/OPV) 2003-05-05 Completed [facility] 00:00:00 [facility] Pneumococcal 7 2003-05-05 Completed [facility] Conjugate, PCV7 00:00:00 [place] [facility] (Prevnar7) [facility] 2003-05-05 Completed [facility] 00:00:00 [facility] 2003-05-05 Completed [facility] 00:00:00 [facility] Polio (IPV/OPV) 2003-05-05 Completed [facility] 00:00:00 [facility] Pneumococcal 7 2003-05-05 Completed [facility] Conjugate, PCV7 00:00:00 [place] [facility] (Prevnar7) [facility] Polio (IPV/OPV) 2003-05-05 Completed [facility] 00:00:00 [facility] 2003-05-05 Completed [facility] 00:00:00 [facility] Polio (IPV/OPV) 2003-05-05 Completed [facility] 00:00:00 [facility] Pneumococcal 7 2003-05-05 Completed [facility] Conjugate, PCV7 00:00:00 [place] [facility] (Prevnar7) [facility] 2003-05-05 Completed [facility] 00:00:00 [facility] Pneumococcal 7 2003-05-05 Completed [facility] Conjugate, PCV7 00:00:00 [place] [facility] (Prevnar7) [facility] Polio (IPV/OPV) 2003-05-05 Completed [facility] 00:00:00 [facility] Pneumococcal 7 2003-05-05 Completed [facility] Conjugate, PCV7 00:00:00 [place] [facility] (Prevnar7) [facility] 2003-05-05 Completed [facility] 00:00:00 [facility] Polio (IPV/OPV) 2003-05-05 Completed [facility] 00:00:00 [facility] Pneumococcal 7 2003-05-05 Completed [facility] Conjugate, PCV7 00:00:00 [place] [facility] (Prevnar7) [facility] 2003-05-05 Completed [facility] 00:00:00 [facility] Polio (IPV/OPV) 2003-05-05 Completed [facility] 00:00:00 [facility] Pneumococcal 7 2003-05-05 Completed [facility] Conjugate, PCV7 00:00:00 [place] [facility] (Prevnar7) [facility] 2003-05-05 Completed [facility] 00:00:00 [facility] Polio (IPV/OPV) 2003-05-05 Completed [facility] 00:00:00 [facility] Pneumococcal 7 2003-05-05 Completed [facility] Conjugate, PCV7 00:00:00 [place] [facility] (Prevnar7) [facility] 2003-05-05 Completed [facility] 00:00:00 [facility] Polio (IPV/OPV) 2003-05-05 Completed [facility] 00:00:00 [facility] Pneumococcal 7 2003-05-05 Completed [facility] Conjugate, PCV7 00:00:00 [place] [facility] (Prevnar7) [facility] 2003-05-05 Completed [facility] 00:00:00 [facility] Polio (IPV/OPV) 2003-05-05 Completed [facility] 00:00:00 [facility] Pneumococcal 7 2003-05-05 Completed [facility] Conjugate, PCV7 00:00:00 [place] [facility] (Prevnar7) [facility] 2003-05-05 Completed [facility] 00:00:00 [facility] Polio (IPV/OPV) 2003-05-05 Completed [facility] 00:00:00 [facility] Pneumococcal 7 2003-05-05 Completed [facility] Conjugate, PCV7 00:00:00 [facility] (Prevnar7) Branch MMR 2003-05-05 Completed [facility] 00:00:00 [facility] Polio (IPV/OPV) 2003-05-05 Completed [facility] 00:00:00 [facility] Pneumococcal 7 2003-05-05 Completed [facility] of Conjugate, PCV7 00:00:00 [facility] (Prevnar7) Branch HIB 4 Dose Schedule 2002 Completed [facility] 00:00:00 [facility] Hep B, Adol or Pedi 2002 Completed [facility]ive [facility] of Dosage 00:00:00 [facility] Hep B, Adol or Pedi 2002 Completed [facility] Dosage 00:00:00 [facility] DTAP 2002 Completed [facility] 00:00:00 [facility] HIB 4 Dose Schedule 2002 Completed [facility] 00:00:00 [facility] Hep B, Adol or Pedi 2002 Completed [facility] Dosage 00:00:00 [facility] DTAP 2002 Completed [facility] 00:00:00 [facility] HIB 4 Dose Schedule 2002 Completed [facility] 00:00:00 [facility] Hep B, Adol or Pedi 2002 Completed [facility] Dosage 00:00:00 [facility] DTAP 2002 Completed [facility] 00:00:00 [facility] HIB 4 Dose Schedule 2002 Completed [facility] 00:00:00 [facility] Hep B, Adol or Pedi 2002 Completed [facility] Dosage 00:00:00 [facility] DTAP 2002 Completed [facility] 00:00:00 [facility] HIB 4 Dose Schedule 2002 Completed [facility] 00:00:00 [facility] Hep B, Adol or Pedi 2002 Completed [facility] Dosage 00:00:00 [facility] DTAP 2002 Completed [facility] [...] 2002 Completed [facility] Dosage 00:00:00 [facility] DTAP 2002 Completed [facility] 00:00:00 [facility] DTAP 2002 Completed [facility] 00:00:00 [facility] HIB 4 Dose Schedule 2002 Completed [facility] 00:00:00 [facility] Hep B, Adol or Pedi 2002 Completed [facility] Dosage 00:00:00 [facility] HIB 4 Dose Schedule 2002 Completed [facility] 00:00:00 [facility] DTAP 2002 Completed [facility] 00:00:00 [facility] HIB 4 Dose Schedule 2002 [...] 2002 Completed [facility] Dosage 00:00:00 [facility] DTAP 2002 Completed [facility] 00:00:00 [facility] HIB 4 Dose Schedule 2002 Completed [facility] 00:00:00 [facility] Hep B, Adol or Pedi 2002 Completed [facility] Dosage 00:00:00 [facility] DTAP 2002 Completed [facility] 00:00:00 [facility] HIB 4 Dose Schedule 2002 Completed [facility] 00:00:00 [facility] Hep B, Adol or Pedi 2002 Completed [facility] Dosage 00:00:00 [facility] DTAP 2002 Completed [facility] 00:00:00 [facility] HIB 4 Dose Schedule 2002 Completed [facility] 00:00:00 [facility] Hep B, Adol or Pedi 2002 Completed [facility] Dosage 00:00:00 [facility] DTAP 2002 Completed [facility] 00:00:00 [facility] HIB 4 Dose Schedule 2002 Completed [facility] 00:00:00 [facility] Hep B, Adol or Pedi 2002 Completed [facility] Dosage 00:00:00 [facility] DTAP 2002 Completed [facility] 00:00:00 [facility] HIB 4 Dose Schedule 2002 Completed [facility] 00:00:00 [facility] Hep B, Adol or Pedi 2002 Completed [facility] Dosage 00:00:00 [facility] DTAP 2002 Completed [facility] 00:00:00 [facility] HIB 4 Dose Schedule 2002 Completed [facility] 00:00:00 [facility] Hep B, Adol or Pedi 2002 Completed [facility] Dosage 00:00:00 [facility] DTAP 2002 Completed [facility] 00:00:00 [facility] DTAP 2002 Completed [facility] 00:00:00 [facility] HIB 4 Dose Schedule 2002 Completed [facility] 00:00:00 [facility] Hep B, Adol or Pedi 2002 Completed [facility] Dosage 00:00:00 [facility] DTAP 2002 Completed [facility] 00:00:00 [facility] HIB 4 Dose Schedule 2002 Completed [facility] 00:00:00 [facility] HIB 4 Dose Schedule 2002 Completed [facility] 00:00:00 [facility] Hep B, Adol or Pedi 2002 Completed [facility] Dosage 00:00:00 [facility] DTAP 2002 Completed [facility] 00:00:00 [facility] HIB 4 Dose Schedule 2002 Completed [facility] 00:00:00 [facility] Hep B, Adol or Pedi 2002 Completed [facility] Dosage 00:00:00 [facility] Hep B, Adol or Pedi 2002 Completed [facility] Dosage 00:00:00 [facility] DTAP 2002 Completed [facility] 00:00:00 [facility] HIB 4 Dose Schedule 2002 Completed [facility] 00:00:00 [facility] Hep B, Adol or Pedi 2002 Completed [facility] Dosage 00:00:00 [facility] DTAP 2002 Completed [facility] 00:00:00 [facility] HIB 4 Dose Schedule 2002 Completed [facility] 00:00:00 [facility] Hep B, Adol or Pedi 2002 Completed [facility] Dosage 00:00:00 [facility] DTAP 2002 Completed [facility] 00:00:00 [facility] HIB 4 Dose Schedule 2002 Completed [facility] 00:00:00 [facility] Hep B, Adol or Pedi 2002 Completed [facility] Dosage 00:00:00 [facility] DTAP 2002 Completed [facility] 00:00:00 [facility] HIB 4 Dose Schedule 2002 Completed [facility] 00:00:00 [facility] Hep B, Adol or Pedi 2002 Completed [facility] Dosage 00:00:00 [facility] DTAP 2002 Completed [facility] [...] 2002 Completed [facility] Dosage 00:00:00 [facility] DTAP 2002 Completed [facility] 00:00:00 [facility] DTAP 2002 Completed [facility] 00:00:00 [facility] HIB 4 Dose Schedule 2002 Completed [facility] 00:00:00 [facility] Hep B, Adol or Pedi 2002 Completed [facility] Dosage 00:00:00 [facility] HIB 4 Dose Schedule 2002 Completed [facility] 00:00:00 [facility] DTAP 2002 Completed [facility] 00:00:00 [facility] HIB 4 Dose Schedule 2002 Completed [facility] 00:00:00 [facility] Hep B, Adol or Pedi 2002 Completed [facility] Dosage 00:00:00 [facility] Hep B, Adol or Pedi 2002 Completed [facility] Dosage 00:00:00 [facility] DTAP 2002 Completed [facility] [...] 2002 Completed [facility] Dosage 00:00:00 [facility] DTAP 2002 Completed [facility] 00:00:00 [facility] HIB 4 Dose Schedule 2002 Completed [facility] 00:00:00 [facility] Hep B, Adol or Pedi 2002 Completed [facility] Dosage 00:00:00 [facility] DTAP 2002 Completed [facility] 00:00:00 [facility] HIB 4 Dose Schedule 2002 Completed [facility] 00:00:00 [facility] Hep B, Adol or Pedi 2002 Completed [facility] Dosage 00:00:00 [facility] DTAP 2002 Completed [facility] 00:00:00 [facility] HIB 4 Dose Schedule 2002 Completed [facility] 00:00:00 [facility] Hep B, Adol or Pedi 2002 Completed [facility] Dosage 00:00:00 [facility] DTAP 2002 Completed [facility] 00:00:00 [facility] HIB 4 Dose Schedule 2002 Completed [facility] 00:00:00 [facility] Hep B, Adol or Pedi 2002 Completed [facility] Dosage 00:00:00 [facility] DTAP 2002 Completed [facility] 00:00:00 [facility] DTAP 2002 Completed [facility] 00:00:00 [facility] HIB 4 Dose Schedule 2002 Completed [facility] 00:00:00 [facility] Hep B, Adol or Pedi 2002 Completed [facility] Dosage 00:00:00 [facility] HIB 4 Dose Schedule 2002 Completed [facility] 00:00:00 [facility] DTAP 2002 Completed [facility] 00:00:00 [facility] HIB 4 Dose Schedule 2002 Completed [facility] 00:00:00 [facility] Hep B, Adol or Pedi 2002 Completed [facility] Dosage 00:00:00 [facility] DTAP 2002 Completed [facility] 00:00:00 [facility] Hep B, Adol or Pedi 2002 Completed [facility] Dosage 00:00:00 [facility] HIB 4 Dose Schedule 2002 Completed [facility] 00:00:00 [facility] Hep B, Adol or Pedi 2002 Completed [facility] Dosage 00:00:00 [facility] DTAP 2002 Completed [facility] 00:00:00 [facility] HIB 4 Dose Schedule 2002 Completed [facility] 00:00:00 [facility] Hep B, Adol or Pedi 2002 Completed [facility] Dosage 00:00:00 [facility] DTAP 2002 Completed [facility] 00:00:00 [facility] HIB 4 Dose Schedule 2002 Completed [facility] 00:00:00 [facility] Hep B, Adol or Pedi 2002 Completed [facility] Dosage 00:00:00 [facility] DTAP 2002 Completed [facility] 00:00:00 [facility] HIB 4 Dose Schedule 2002 Completed [facility] 00:00:00 [facility] Hep B, Adol or Pedi 2002 Completed [facility] Dosage 00:00:00 [facility] DTAP 2002 Completed [facility] 00:00:00 [facility] HIB 4 Dose Schedule 2002 Completed [facility] 00:00:00 [facility] DTAP 2002 Completed [facility] 00:00:00 [facility] Hep B, Adol or Pedi 2002 Completed [facility] Dosage 00:00:00 [facility] HIB 4 Dose Schedule 2002 Completed [facility] 00:00:00 [facility] DTAP 2002 Completed [facility] 00:00:00 [facility] HIB 4 Dose Schedule 2002 Completed [facility] 00:00:00 [facility] Hep B, Adol or Pedi 2002 Completed [facility] Dosage 00:00:00 [facility] DTAP 2002 Completed [facility] 00:00:00 [facility] Hep B, Adol or Pedi 2002 Completed [facility] Dosage 00:00:00 [facility] HIB 4 Dose Schedule 2002 Completed [facility] 00:00:00 [facility] Hep B, Adol or Pedi 2002 Completed [facility] Dosage 00:00:00 [facility] DTAP 2002 Completed [facility] 00:00:00 [facility] HIB 4 Dose Schedule 2002 Completed [facility] 00:00:00 [facility] Hep B, Adol or Pedi 2002 Completed [facility] Dosage 00:00:00 [facility] DTAP 2002 Completed [facility] 00:00:00 [facility] HIB 4 Dose Schedule 2002 Completed [facility] 00:00:00 [facility] Hep B, Adol or Pedi 2002 Completed [facility] Dosage 00:00:00 [facility] DTAP 2002 Completed [facility] 00:00:00 [facility] HIB 4 Dose Schedule 2002 Completed [facility] 00:00:00 [facility] Hep B, Adol or Pedi 2002 Completed [facility] Dosage 00:00:00 [facility] DTAP 2002 Completed [facility] 00:00:00 [facility] HIB 4 Dose Schedule 2002 Completed [facility] 00:00:00 [facility] Hep B, Adol or Pedi 2002 Completed [facility] Dosage 00:00:00 [facility] DTAP 2002 Completed [facility] 00:00:00 [facility] HIB 4 Dose Schedule 2002 Completed [facility] 00:00:00 [facility] Hep B, Adol or Pedi 2002 Completed [facility] Dosage 00:00:00 [facility] DTAP 2002 Completed [facility] 00:00:00 [facility] DTAP 2002 Completed [facility] [...] 2002 Completed [facility] Dosage 00:00:00 [facility] DTAP 2002 Completed [facility] 00:00:00 [facility] HIB 4 Dose Schedule 2002 Completed [facility] 00:00:00 [facility] Hep B, Adol or Pedi 2002 Completed [facility] Dosage 00:00:00 [facility] DTAP 2002 Completed [facility] 00:00:00 [facility] HIB 4 Dose Schedule 2002 Completed [facility] 00:00:00 [facility] Hep B, Adol or Pedi 2002 Completed [facility] Dosage 00:00:00 [facility] DTAP 2002 Completed [facility] [...] 2002 Completed [facility] Dosage 00:00:00 [facility] DTAP 2002 Completed [facility] [...] Branch DTAP 2002 Completed [facility] 00:00:00 [facility] HIB 4 Dose Schedule 2002 Completed [facility] 00:00:00 [facility] Hep B, Adol or Pedi 2002 Completed [facility] Dosage 00:00:00 [facility] DTAP 2002 Completed [facility] 00:00:00 [facility] HIB 4 Dose Schedule 2002 Completed [facility] 00:00:00 [facility] Hep B, Adol or Pedi 2002 Completed [facility] Dosage 00:00:00 [facility] Hep B, Adol or Pedi 2002 Completed [facility] Dosage 00:00:00 [facility] DTAP 2002 Completed [facility] 00:00:00 [facility] HIB 4 Dose Schedule 2002 [...] 2002 Completed [facility] Dosage 00:00:00 [facility] DTAP 2002 Completed [facility] 00:00:00 [facility] HIB 4 Dose Schedule 2002 Completed [facility] 00:00:00 [facility] Hep B, Adol or Pedi 2002 Completed [facility] Dosage 00:00:00 [facility] DTAP 2002 Completed [facility] 00:00:00 [facility] HIB 4 Dose Schedule 2002 Completed [facility] 00:00:00 [facility] Hep B, Adol or Pedi 2002 Completed [facility] Dosage 00:00:00 [facility] DTAP 2002 Completed [facility] 00:00:00 [facility] HIB 4 Dose Schedule 2002 Completed [facility] 00:00:00 [facility] Hep B, Adol or Pedi 2002 Completed [facility] Dosage 00:00:00 [facility] DTAP 2002 Completed [facility] 00:00:00 [facility] DTAP 2002 Completed [facility] 00:00:00 [facility] HIB 4 Dose Schedule 2002 Completed [facility] 00:00:00 [facility] Hep B, Adol or Pedi 2002 Completed [facility] Dosage 00:00:00 [facility] HIB 4 Dose Schedule 2002 Completed [facility] 00:00:00 [facility] DTAP 2002 Completed [facility] 00:00:00 [facility] HIB 4 Dose Schedule 2002 Completed [facility] 00:00:00 [facility] Hep B, Adol or Pedi 2002 Completed [facility] Dosage 00:00:00 [facility] DTAP 2002 Completed [facility] 00:00:00 [facility] HIB 4 Dose Schedule 2002 Completed [facility] 00:00:00 [facility] Hep B, Adol or Pedi 2002 Completed [facility] Dosage 00:00:00 [facility] Hep B, Adol or Pedi 2002 Completed [facility] Dosage 00:00:00 [facility] DTAP 2002 Completed [facility] 00:00:00 [facility] HIB 4 Dose Schedule 2002 Completed [facility] 00:00:00 [facility] Hep B, Adol or Pedi 2002 Completed [facility] Dosage 00:00:00 [facility] DTAP 2002 Completed [facility] 00:00:00 [facility] HIB 4 Dose Schedule 2002 Completed [facility] 00:00:00 [facility] Hep B, Adol or Pedi 2002 Completed [facility] Dosage 00:00:00 [facility] DTAP 2002 Completed [facility] 00:00:00 [facility] HIB 4 Dose Schedule 2002 Completed [facility] 00:00:00 [facility] Hep B, Adol or Pedi 2002 Completed [facility] Dosage 00:00:00 [facility] DTAP 2002 Completed [facility] 00:00:00 [facility] HIB 4 Dose Schedule 2002 Completed [facility] 00:00:00 [facility] Hep B, Adol or Pedi 2002 Completed [facility] Dosage 00:00:00 [facility] DTAP 2002 Completed [facility] 00:00:00 [facility] HIB 4 Dose Schedule 2002 Completed [facility] 00:00:00 [facility] Hep B, Adol or Pedi 2002 Completed [facility] Dosage 00:00:00 [facility] DTAP 2002 Completed [facility] 00:00:00 [facility] HIB 4 Dose Schedule 2002 Completed [facility] 00:00:00 [facility] Hep B, Adol or Pedi 2002 Completed [facility] Dosage 00:00:00 [facility] DTAP 2002 Completed [facility] 00:00:00 [facility] HIB 4 Dose Schedule 2002 Completed [facility] 00:00:00 [facility] Hep B, Adol or Pedi 2002 Completed [facility] Dosage 00:00:00 [facility] DTAP 2002 Completed [facility] 00:00:00 [facility] HIB 4 Dose Schedule 2002 Completed [facility] 00:00:00 [facility] Hep B, Adol or Pedi 2002 Completed [facility] Dosage 00:00:00 [facility] DTAP 2002 Completed [facility] 00:00:00 [facility] DTAP 2002 Completed [facility] 00:00:00 [facility] HIB 4 Dose Schedule 2002 Completed [facility] 00:00:00 [facility] Hep B, Adol or Pedi 2002 Completed [facility] Dosage 00:00:00 [facility] DTAP 2002 Completed [facility] 00:00:00 [facility] HIB 4 Dose Schedule 2002 Completed [facility] 00:00:00 [facility] HIB 4 Dose Schedule 2002 Completed [facility] 00:00:00 [facility] Hep B, Adol or Pedi 2002 Completed [facility] Dosage 00:00:00 [facility] DTAP 2002 Completed [facility] 00:00:00 [facility] HIB 4 Dose Schedule 2002 Completed [facility] 00:00:00 [facility] Polio (IPV/OPV) 2002 Completed [facility] 00:00:00 [facility] DTAP 2002 Completed [facility] 00:00:00 [facility] HIB 4 Dose Schedule 2002 Completed [facility] 00:00:00 [facility] Polio (IPV/OPV) 2002 Completed [facility] 00:00:00 [facility] Polio (IPV/OPV) 2002 Completed [facility] 00:00:00 [facility] DTAP 2002 Completed [facility] 00:00:00 [facility] HIB 4 Dose Schedule 2002 Completed [facility] 00:00:00 [facility] Polio (IPV/OPV) 2002 Completed [facility] 00:00:00 [facility] DTAP 2002 Completed [facility] 00:00:00 [facility] HIB 4 Dose Schedule 2002 Completed [facility] 00:00:00 [facility] Polio (IPV/OPV) 2002 Completed [facility] 00:00:00 [facility] DTAP 2002 Completed [facility] 00:00:00 [facility] HIB 4 Dose Schedule 2002 Completed [facility] 00:00:00 [facility] Polio (IPV/OPV) 2002 Completed [facility] 00:00:00 [facility] DTAP 2002 Completed [facility] 00:00:00 [facility] HIB 4 Dose Schedule 2002 Completed [facility] 00:00:00 [facility] Polio (IPV/OPV) 2002 Completed [facility] 00:00:00 [facility] DTAP 2002 Completed [facility] 00:00:00 [facility] HIB 4 Dose Schedule 2002 Completed [facility] 00:00:00 [facility] Polio (IPV/OPV) 2002 Completed [facility] 00:00:00 [facility] DTAP 2002 Completed [facility] 00:00:00 [facility] HIB 4 Dose Schedule 2002 Completed [facility] 00:00:00 [facility] DTAP 2002 Completed [facility] 00:00:00 [facility] Polio (IPV/OPV) 2002 Completed [facility] 00:00:00 [facility] DTAP 2002 Completed [facility] 00:00:00 [facility] HIB 4 Dose Schedule 2002 Completed [facility] 00:00:00 [facility] HIB 4 Dose Schedule 2002 Completed [facility] 00:00:00 [facility] Polio (IPV/OPV) 2002 Completed [facility] 00:00:00 [facility] DTAP 2002 Completed [facility] 00:00:00 [facility] HIB 4 Dose Schedule 2002 Completed [facility] 00:00:00 [facility] Polio (IPV/OPV) 2002 Completed [facility] 00:00:00 [facility] DTAP 2002 Completed [facility] 00:00:00 [facility] HIB 4 Dose Schedule 2002 Completed [facility] 00:00:00 [facility] Polio (IPV/OPV) 2002 Completed [facility] 00:00:00 [facility] DTAP 2002 Completed [facility] 00:00:00 [facility] HIB 4 Dose Schedule 2002 Completed [facility] 00:00:00 [facility] Polio (IPV/OPV) 2002 Completed [facility] 00:00:00 [facility] Polio (IPV/OPV) 2002 Completed [facility] 00:00:00 [facility] DTAP 2002 Completed [facility] 00:00:00 [facility] HIB 4 Dose Schedule 2002 Completed [facility] 00:00:00 [facility] Polio (IPV/OPV) 2002 Completed [facility] 00:00:00 [facility] DTAP 2002 Completed [facility] 00:00:00 [facility] HIB 4 Dose Schedule 2002 Completed [facility] 00:00:00 [facility] Polio (IPV/OPV) 2002 Completed [facility] 00:00:00 [facility] DTAP 2002 Completed [facility] 00:00:00 [facility] HIB 4 Dose Schedule 2002 Completed [facility] 00:00:00 [facility] Polio (IPV/OPV) 2002 Completed [facility] 00:00:00 [facility] DTAP 2002 Completed [facility] 00:00:00 [facility] HIB 4 Dose Schedule 2002 Completed [facility] 00:00:00 [facility] Polio (IPV/OPV) 2002 Completed [facility] 00:00:00 [facility] DTAP 2002 Completed [facility] 00:00:00 [facility] HIB 4 Dose Schedule 2002 Completed [facility] 00:00:00 [facility] Polio (IPV/OPV) 2002 Completed [facility] 00:00:00 [facility] DTAP 2002 Completed [facility] 00:00:00 [facility] HIB 4 Dose Schedule 2002 Completed [facility] 00:00:00 [facility] Polio (IPV/OPV) 2002 Completed [facility] 00:00:00 [facility] DTAP 2002 Completed [facility] 00:00:00 [facility] DTAP 2002 Completed [facility] 00:00:00 [facility] HIB 4 Dose Schedule 2002 Completed [facility] 00:00:00 [facility] Polio (IPV/OPV) 2002 Completed [facility] 00:00:00 [facility] HIB 4 Dose Schedule 2002 Completed [facility] 00:00:00 [facility] DTAP 2002 Completed [facility] 00:00:00 [facility] HIB 4 Dose Schedule 2002 Completed [facility] 00:00:00 [facility] Polio (IPV/OPV) 2002 Completed [facility] 00:00:00 [facility] DTAP 2002 Completed [facility] 00:00:00 [facility] HIB 4 Dose Schedule 2002 Completed [facility] 00:00:00 [facility] Polio (IPV/OPV) 2002 Completed [facility] 00:00:00 [facility] DTAP 2002 Completed [facility] 00:00:00 [facility] HIB 4 Dose Schedule 2002 Completed [facility] 00:00:00 [facility] Polio (IPV/OPV) 2002 Completed [facility] 00:00:00 [facility] Polio (IPV/OPV) 2002 Completed [facility] 00:00:00 [facility] DTAP 2002 Completed [facility] 00:00:00 [facility] HIB 4 Dose Schedule 2002 Completed [facility] 00:00:00 [facility] Polio (IPV/OPV) 2002 Completed [facility] 00:00:00 [facility] DTAP 2002 Completed [facility] 00:00:00 [facility] HIB 4 Dose Schedule 2002 Completed [facility] 00:00:00 [facility] Polio (IPV/OPV) 2002 Completed [facility] 00:00:00 [facility] DTAP 2002 Completed [facility] 00:00:00 [facility] HIB 4 Dose Schedule 2002 Completed [facility] 00:00:00 [facility] Polio (IPV/OPV) 2002 Completed [facility] 00:00:00 [facility] DTAP 2002 Completed [facility] 00:00:00 [facility] HIB 4 Dose Schedule 2002 Completed [facility] 00:00:00 [facility] Polio (IPV/OPV) 2002 Completed [facility] 00:00:00 [facility] DTAP 2002 Completed [facility] 00:00:00 [facility] HIB 4 Dose Schedule 2002 Completed [facility] 00:00:00 [facility] DTAP 2002 Completed [facility] 00:00:00 [facility] Polio (IPV/OPV) 2002 Completed [facility]00 [facility] [facility] DTAP 2002 Completed [facility] 00:00:00 [facility] HIB 4 Dose Schedule 2002 Completed [facility] 00:00:00 [facility] HIB 4 Dose Schedule 2002 Completed [facility] 00:00:00 [facility] Polio (IPV/OPV) 2002 Completed [facility] 00:00:00 [facility] DTAP 2002 Completed [facility] 00:00:00 [facility] HIB 4 Dose Schedule 2002 Completed [facility] 00:00:00 [facility] Polio (IPV/OPV) 2002 Completed [facility] 00:00:00 [facility] DTAP 2002 Completed [facility] 00:00:00 [facility] HIB 4 Dose Schedule 2002 Completed [facility] 00:00:00 [facility] Polio (IPV/OPV) 2002 Completed [facility] 00:00:00 [facility] Polio (IPV/OPV) 2002 Completed [facility] 00:00:00 [facility] DTAP 2002 Completed [facility] 00:00:00 [facility] HIB 4 Dose Schedule 2002 Completed [facility] 00:00:00 [facility] Polio (IPV/OPV) 2002 Completed [facility] 00:00:00 [facility] DTAP 2002 Completed [facility] 00:00:00 [facility] HIB 4 Dose Schedule 2002 Completed [facility] 00:00:00 [facility] Polio (IPV/OPV) 2002 Completed [facility] 00:00:00 [facility] DTAP 2002 Completed [facility] 00:00:00 [facility] HIB 4 Dose Schedule 2002 Completed [facility] 00:00:00 [facility] Polio (IPV/OPV) 2002 Completed [facility] 00:00:00 [facility] DTAP 2002 Completed [facility] 00:00:00 [facility] HIB 4 Dose Schedule 2002 Completed [facility] 00:00:00 [facility] Polio (IPV/OPV) 2002 Completed [facility] 00:00:00 [facility] DTAP 2002 Completed [facility] 00:00:00 [facility] HIB 4 Dose Schedule 2002 Completed [facility] 00:00:00 [facility] Polio (IPV/OPV) 2002 Completed [facility] 00:00:00 [facility] DTAP 2002 Completed [facility] 00:00:00 [facility] HIB 4 Dose Schedule 2002 Completed [facility] 00:00:00 [facility] DTAP 2002 Completed [facility] 00:00:00 [facility] Polio (IPV/OPV) 2002 Completed [facility] 00:00:00 [facility] DTAP 2002 Completed [facility] 00:00:00 [facility] HIB 4 Dose Schedule 2002 Completed [facility] 00:00:00 [facility] HIB 4 Dose Schedule 2002 Completed [facility] 00:00:00 [facility] Polio (IPV/OPV) 2002 Completed [facility] 00:00:00 [facility] DTAP 2002 Completed [facility] 00:00:00 [facility] HIB 4 Dose Schedule 2002 Completed [facility] 00:00:00 [facility] Polio (IPV/OPV) 2002 Completed [facility] 00:00:00 [facility] DTAP 2002 Completed [facility] 00:00:00 [facility] HIB 4 Dose Schedule 2002 Completed [facility] 00:00:00 [facility] Polio (IPV/OPV) 2002 Completed [facility] 00:00:00 [facility] DTAP 2002 Completed [facility] 00:00:00 [facility] HIB 4 Dose Schedule 2002 Completed [facility] 00:00:00 [facility] Polio (IPV/OPV) 2002 Completed [facility] 00:00:00 [facility] Polio (IPV/OPV) 2002 Completed [facility] 00:00:00 [facility] DTAP 2002 Completed [facility] 00:00:00 [facility] HIB 4 Dose Schedule 2002 Completed [facility] 00:00:00 [facility] Polio (IPV/OPV) 2002 Completed [facility] 00:00:00 [facility] DTAP 2002 Completed [facility] 00:00:00 [facility] HIB 4 Dose Schedule 2002 Completed [facility] 00:00:00 [facility] Polio (IPV/OPV) 2002 Completed [facility] 00:00:00 [facility] DTAP 2002 Completed [facility] 00:00:00 [facility] DTAP 2002 Completed [facility] 00:00:00 [facility] HIB 4 Dose Schedule 2002 Completed [facility] 00:00:00 [facility] Polio (IPV/OPV) 2002 Completed [facility] 00:00:00 [facility] HIB 4 Dose Schedule 2002 Completed [facility] 00:00:00 [facility] DTAP 2002 Completed [facility] 00:00:00 [facility] HIB 4 Dose Schedule 2002 Completed [facility] 00:00:00 [facility] Polio (IPV/OPV) 2002 Completed [facility] 00:00:00 [facility] DTAP 2002 Completed [facility] 00:00:00 [facility] HIB 4 Dose Schedule 2002 Completed [facility] 00:00:00 [facility] Polio (IPV/OPV) 2002 Completed [facility] 00:00:00 [facility] DTAP 2002 Completed [facility] 00:00:00 [facility] HIB 4 Dose Schedule 2002 Completed [facility] 00:00:00 [facility] Polio (IPV/OPV) 2002 Completed [facility] 00:00:00 [facility] Polio (IPV/OPV) 2002 Completed [facility] 00:00:00 [facility] DTAP 2002 Completed [facility] 00:00:00 [facility] HIB 4 Dose Schedule 2002 Completed [facility] 00:00:00 [facility] Polio (IPV/OPV) 2002 Completed [facility] 00:00:00 [facility] DTAP 2002 Completed [facility] 00:00:00 [facility] HIB 4 Dose Schedule 2002 Completed [facility] 00:00:00 [facility] Polio (IPV/OPV) 2002 Completed [facility] 00:00:00 [facility] DTAP 2002 Completed [facility] 00:00:00 [facility] HIB 4 Dose Schedule 2002 Completed [facility] 00:00:00 [facility] Polio (IPV/OPV) 2002 Completed [facility] 00:00:00 [facility] DTAP 2002 Completed [facility] 00:00:00 [facility] HIB 4 Dose Schedule 2002 Completed [facility] 00:00:00 [facility] DTAP 2002 Completed [facility] 00:00:00 [facility] Polio (IPV/OPV) 2002 Completed [facility] 00:00:00 [facility] DTAP 2002 Completed [facility] 00:00:00 [facility] HIB 4 Dose Schedule 2002 Completed [facility] 00:00:00 [facility] HIB 4 Dose Schedule 2002 Completed [facility] 00:00:00 [facility] Polio (IPV/OPV) 2002 Completed [facility] 00:00:00 [facility] DTAP 2002 Completed [facility] 00:00:00 [facility] HIB 4 Dose Schedule 2002 Completed [facility] 00:00:00 [facility] Polio (IPV/OPV) 2002 Completed [facility] 00:00:00 [facility] DTAP 2002 Completed [facility] 00:00:00 [facility] HIB 4 Dose Schedule 2002 Completed [facility] 00:00:00 [facility] Polio (IPV/OPV) 2002 Completed [facility] 00:00:00 [facility] DTAP 2002 Completed [facility] 00:00:00 [facility] Polio (IPV/OPV) 2002 Completed [facility] 00:00:00 [facility] HIB 4 Dose Schedule 2002 Completed [facility] 00:00:00 [facility] Polio (IPV/OPV) 2002 Completed [facility] 00:00:00 [facility] DTAP 2002 Completed [facility] 00:00:00 [facility] HIB 4 Dose Schedule 2002 Completed [facility] 00:00:00 [facility] Polio (IPV/OPV) 2002 Completed [facility] 00:00:00 [facility] DTAP 2002 Completed [facility] 00:00:00 [facility] HIB 4 Dose Schedule 2002 Completed [facility] 00:00:00 [facility] Polio (IPV/OPV) 2002 Completed [facility] 00:00:00 [facility] DTAP 2002 Completed [facility] 00:00:00 [facility] HIB 4 Dose Schedule 2002 Completed [facility] 00:00:00 [facility] Polio (IPV/OPV) 2002 Completed [facility] 00:00:00 [facility] DTAP 2002 Completed [facility] 00:00:00 [facility] HIB 4 Dose Schedule 2002 Completed [facility] 00:00:00 [facility] Polio (IPV/OPV) 2002 Completed [facility] 00:00:00 [facility] DTAP 2002 Completed [facility] [...] (IPV/OPV) 2002 Completed [facility] 00:00:00 [facility] DTAP 2002 Completed [facility] 00:00:00 [facility] HIB 4 Dose Schedule 2002 Completed [facility] 00:00:00 [facility] DTAP 2002 Completed [facility] 00:00:00 [facility] Polio (IPV/OPV) 2002 Completed [facility] 00:00:00 [facility] DTAP 2002 Completed [facility] 00:00:00 [facility] HIB 4 Dose Schedule 2002 Completed [facility] 00:00:00 [facility] Polio (IPV/OPV) 2002 Completed [facility] 00:00:00 [facility] HIB 4 Dose Schedule 2002 Completed [facility] 00:00:00 [facility] DTAP 2002 Completed [facility] 00:00:00 [facility] HIB 4 Dose Schedule 2002 Completed [facility] 00:00:00 [facility] Polio (IPV/OPV) 2002 Completed [facility] 00:00:00 [facility] DTAP 2002 Completed [facility] 00:00:00 [facility] HIB 4 Dose Schedule 2002 Completed [facility] 00:00:00 [facility] Polio (IPV/OPV) 2002 Completed [facility] 00:00:00 [facility] DTAP 2002 Completed [facility] 00:00:00 [facility] HIB 4 Dose Schedule 2002 Completed [facility] 00:00:00 [facility] Polio (IPV/OPV) 2002 Completed [facility] 00:00:00 [facility] Polio (IPV/OPV) 2002 Completed [facility] 00:00:00 [facility] DTAP 2002 Completed [facility] 00:00:00 [facility] HIB 4 Dose Schedule 2002 Completed [facility] 00:00:00 [facility] Polio (IPV/OPV) 2002 Completed [facility] 00:00:00 [facility] DTAP 2002 Completed [facility] 00:00:00 [facility] HIB 4 Dose Schedule 2002 Completed [facility] 00:00:00 [facility] Polio (IPV/OPV) 2002 Completed [facility] 00:00:00 [facility] DTAP 2002 Completed [facility] 00:00:00 [facility] HIB 4 Dose Schedule 2002 Completed [facility] 00:00:00 [facility] Polio (IPV/OPV) 2002 Completed [facility] 00:00:00 [facility] DTAP 2002 Completed [facility] 00:00:00 [facility] HIB 4 Dose Schedule 2002 Completed [facility] 00:00:00 [facility] Polio (IPV/OPV) 2002 Completed [facility] 00:00:00 [facility] DTAP 2002 Completed [facility] 00:00:00 [facility] HIB 4 Dose Schedule 2002 Completed [facility] 00:00:00 [facility] Polio (IPV/OPV) 2002 Completed [facility] 00:00:00 [facility] DTAP 2002 Completed [facility] 00:00:00 [facility] HIB 4 Dose Schedule 2002 Completed [facility] 00:00:00 [facility] Polio (IPV/OPV) 2002 Completed [facility] 00:00:00 [facility] DTAP 2002 Completed [facility] 00:00:00 [facility] HIB 4 Dose Schedule 2002 Completed [facility] 00:00:00 [facility] Polio (IPV/OPV) 2002 Completed [facility] 00:00:00 [facility] DTAP 2002 Completed [facility] 00:00:00 [facility] DTAP 2002 Completed [facility] 00:00:00 [facility] HIB 4 Dose Schedule 2002 Completed [facility] 00:00:00 [facility] Polio (IPV/OPV) 2002 Completed [facility] 00:00:00 [facility] HIB 4 Dose Schedule 2002 Completed [facility] 00:00:00 [facility] DTAP 2002 Completed [facility] 00:00:00 [facility] HIB 4 Dose Schedule 2002 Completed [facility] 00:00:00 [facility] Polio (IPV/OPV) 2002 Completed [facility] 00:00:00 [facility] DTAP 2002 Completed [facility] 00:00:00 [facility] Hep B, Adol or Pedi 2002 Completed [facility] Dosage 00:00:00 [facility] Hep B, Adol or Pedi 2002 Completed [facility] Dosage 00:00:00 [facility] Polio (IPV/OPV) 2002 Completed [facility] 00:00:00 [facility] DTAP 2002 Completed [facility] 00:00:00 [facility] HIB 4 Dose Schedule 2002 Completed [facility] 00:00:00 [facility] Hep B, Adol or Pedi 2002 Completed [facility] Dosage 00:00:00 [facility] Polio (IPV/OPV) 2002 Completed [facility] 00[facility]00:00 [facility] Polio (IPV/OPV) 2002 Completed [facility] 00:00:00 [facility] DTAP 2002 Completed [facility] 00:00:00 [facility] HIB 4 Dose Schedule 2002 Completed [facility] 00:00:00 [facility] Hep B, Adol or Pedi 2002 Completed [facility] Dosage 00:00:00 [facility] Polio (IPV/OPV) 2002 Completed [facility] 00:00:00 [facility] DTAP 2002 Completed [facility] 00:00:00 [facility] HIB 4 Dose Schedule 2002 Completed [facility] 00:00:00 [facility] Hep B, Adol or Pedi 2002 Completed [facility] Dosage 00:00:00 [facility] Polio (IPV/OPV) 2002 Completed [facility] 00:00:00 [facility] DTAP 2002 Completed [facility] 00:00:00 [facility] HIB 4 Dose Schedule 2002 Completed [facility] 00:00:00 [facility] Hep B, Adol or Pedi 2002 Completed [facility] Dosage 00:00:00 [facility] Polio (IPV/OPV) 2002 Completed [facility] 00:00:00 [facility] DTAP 2002 Completed [facility] 00:00:00 [facility] HIB 4 Dose Schedule 2002 Completed [facility] 00:00:00 [facility] Hep B, Adol or Pedi 2002 Completed [facility] Dosage 00:00:00 [facility] Polio (IPV/OPV) 2002 Completed [facility] 00:00:00 [facility] DTAP 2002 Completed [facility] 00:00:00 [facility] HIB 4 Dose Schedule 2002 Completed [facility] 00:00:00 [facility] Hep B, Adol or Pedi 2002 Completed [facility] Dosage 00:00:00 [facility] Polio (IPV/OPV) 2002 Completed [facility] 00:00:00 [facility] DTAP 2002 Completed [facility] 00:00:00 [facility] DTAP 2002 Completed [facility] 00:00:00 [facility] HIB 4 Dose Schedule 2002 Completed [facility] 00:00:00 [facility] Hep B, Adol or Pedi 2002 Completed [facility] Dosage 00:00:00 [facility] Polio (IPV/OPV) 2002 Completed [facility] 00:00:00 [facility] DTAP 2002 Completed [facility] 00:00:00 [facility] HIB 4 Dose Schedule 2002 Completed [facility] 00:00:00 [facility] HIB 4 Dose Schedule 2002 Completed [facility] 00:00:00 [facility] Hep B, Adol or Pedi 2002 Completed [facility] Dosage 00:00:00 [facility] Polio (IPV/OPV) 2002 Completed [facility] 00:00:00 [facility] DTAP 2002 Completed [facility] 00:00:00 [facility] HIB 4 Dose Schedule 2002 Completed [facility] 00:00:00 [facility] Hep B, Adol or Pedi 2002 Completed [facility] Dosage 00:00:00 [facility] Polio (IPV/OPV) 2002 Completed [facility] 00:00:00 [facility] Hep B, Adol or Pedi 2002 Completed [facility] Dosage 00:00:00 [facility] DTAP 2002 Completed [facility] 00:00:00 [facility] HIB 4 Dose Schedule 2002 Completed [facility] 00:00:00 [facility] Hep B, Adol or Pedi 2002 Completed [facility] Dosage 00:00:00 [facility] Polio (IPV/OPV) 2002 Completed [facility] 00:00:00 [facility] Polio (IPV/OPV) 2002 Completed [facility] 00:00:00 [facility] DTAP 2002 Completed [facility] 00:00:00 [facility] HIB 4 Dose Schedule 2002 Completed [facility] 00:00:00 [facility] Hep B, Adol or Pedi 2002 Completed [facility] Dosage 00:00:00 [facility] Polio (IPV/OPV) 2002 Completed [facility] 00[facility]00:00 [facility] DTAP 2002 Completed [facility] 00:00:00 [facility] HIB 4 Dose Schedule 2002 Completed [facility] 00:00:00 [facility] Hep B, Adol or Pedi 2002 Completed [facility] Dosage 00:00:00 [facility] Polio (IPV/OPV) 2002 Completed [facility] 00[facility]00:00 [facility] DTAP 2002 Completed [facility] 00:00:00 [facility] HIB 4 Dose Schedule 2002 Completed [facility] 00:00:00 [facility] Hep B, Adol or Pedi 2002 Completed [facility] Dosage 00:00:00 [facility] Polio (IPV/OPV) 2002 Completed [facility] 00:00:00 [facility] DTAP 2002 Completed [facility] 00:00:00 [facility] HIB 4 Dose Schedule 2002 Completed [facility] 00:00:00 [facility] Hep B, Adol or Pedi 2002 Completed [facility] Dosage 00:00:00 [facility] Polio (IPV/OPV) 2002 Completed [facility] 00[facility]00:00 [facility] DTAP 2002 Completed [facility] 00:00:00 [facility] HIB 4 Dose Schedule 2002 Completed [facility] 00:00:00 [facility] Hep B, Adol or Pedi 2002 Completed [facility] Dosage 00:00:00 [facility] Polio (IPV/OPV) 2002 Completed [facility] 00:00:00 [facility] DTAP 2002 Completed [facility] 00:00:00 [facility] HIB 4 Dose Schedule 2002 Completed [facility] 00:00:00 [facility] Hep B, Adol or Pedi 2002 Completed [facility] Dosage 00:00:00 [facility] Polio (IPV/OPV) 2002 Completed [facility] 00:00:00 [facility] DTAP 2002 Completed [facility] 00:00:00 [facility] HIB 4 Dose Schedule 2002 Completed [facility] 00:00:00 [facility] Hep B, Adol or Pedi 2002 Completed [facility] Dosage 00:00:00 [facility] Polio (IPV/OPV) 2002 Completed [facility] 00:00:00 [facility] DTAP 2002 Completed [facility] 00:00:00 [facility] DTAP 2002 Completed [facility] 00:00:00 [facility] HIB 4 Dose Schedule 2002 Completed [facility] 00:00:00 [facility] Hep B, Adol or Pedi 2002 Completed [facility] Dosage 00:00:00 [facility] Polio (IPV/OPV) 2002 Completed [facility] 00:00:00 [facility] HIB 4 Dose Schedule 2002 Completed [facility] 00:00:00 [facility] DTAP 2002 Completed [facility] 00:00:00 [facility] HIB 4 Dose Schedule 2002 Completed [facility] 00:00:00 [facility] Hep B, Adol or Pedi 2002 Completed [facility] Dosage 00:00:00 [facility] Polio (IPV/OPV) 2002 Completed [facility] 00:00:00 [facility] DTAP 2002 Completed [facility] 00:00:00 [facility] HIB 4 Dose Schedule 2002 Completed [facility] 00:00:00 [facility] Hep B, Adol or Pedi 2002 Completed [facility] Dosage 00:00:00 [facility] Polio (IPV/OPV) 2002 Completed [facility] 00:00:00 [facility] Hep B, Adol or Pedi 2002 Completed [facility] Dosage 00:00:00 [facility] DTAP 2002 Completed [facility] 00:00:00 [facility] HIB 4 Dose Schedule 2002 Completed [facility] 00:00:00 [facility] Hep B, Adol or Pedi 2002 Completed [facility] Dosage 00:00:00 [facility] Polio (IPV/OPV) 2002 Completed [facility] 00:00:00 [facility] Polio (IPV/OPV) 2002 Completed [facility] 00:00:00 [facility] DTAP 2002 Completed [facility] 00:00:00 [facility] HIB 4 Dose Schedule 2002 Completed [facility] 00:00:00 [facility] Hep B, Adol or Pedi 2002 Completed [facility] Dosage 00:00:00 [facility] Polio (IPV/OPV) 2002 Completed [facility] 00:00:00 [facility] DTAP 2002 Completed [facility] 00:00:00 [facility] HIB 4 Dose Schedule 2002 Completed [facility] 00:00:00 [facility] Hep B, Adol or Pedi 2002 Completed [facility] Dosage 00:00:00 [facility] Polio (IPV/OPV) 2002 Completed [facility] 00:00:00 [facility] DTAP 2002 Completed [facility] 00:00:00 [facility] HIB 4 Dose Schedule 2002 Completed [facility] 00:00:00 [facility] Hep B, Adol or Pedi 2002 Completed [facility] Dosage 00:00:00 [facility] Polio (IPV/OPV) 2002 Completed [facility] 00:00:00 [facility] DTAP 2002 Completed [facility] 00:00:00 [facility] HIB 4 Dose Schedule 2002 Completed [facility] 00:00:00 [facility] Hep B, Adol or Pedi 2002 Completed [facility] Dosage 00:00:00 [facility] Polio (IPV/OPV) 2002 Completed [facility] 00:00:00 [facility] DTAP 2002 Completed [facility] 00:00:00 [facility] HIB 4 Dose Schedule 2002 Completed [facility] 00:00:00 [facility] DTAP 2002 Completed [facility] 00:00:00 [facility] Hep B, Adol or Pedi 2002 Completed [facility] Dosage 00:00:00 [facility] Polio (IPV/OPV) 2002 Completed [facility] 00[facility]00:00 [facility] HIB 4 Dose Schedule 2002 Completed [facility] 00:00:00 [facility] DTAP 2002 Completed [facility] 00:00:00 [facility] HIB 4 Dose Schedule 2002 Completed [facility] 00:00:00 [facility] Hep B, Adol or Pedi 2002 Completed [facility] Dosage 00:00:00 [facility] Polio (IPV/OPV) 2002 Completed [facility] 00:00:00 [facility] DTAP 2002 Completed [facility] 00:00:00 [facility] HIB 4 Dose Schedule 2002 Completed [facility] 00:00:00 [facility] Hep B, Adol or Pedi 2002 Completed [facility] Dosage 00:00:00 [facility] Polio (IPV/OPV) 2002 Completed [facility] 00:00:00 [facility] Hep B, Adol or Pedi 2002 Completed [facility] Dosage 00:00:00 [facility] DTAP 2002 Completed [facility] 00:00:00 [facility] HIB 4 Dose Schedule 2002 Completed [facility] 00:00:00 [facility] Hep B, Adol or Pedi 2002 Completed [facility] Dosage 00:00:00 [facility] Polio (IPV/OPV) 2002 Completed [facility] 00:00:00 [facility] Polio (IPV/OPV) 2002 Completed [facility] 00:00:00 [facility] DTAP 2002 Completed [facility] 00:00:00 [facility] HIB 4 Dose Schedule 2002 Completed [facility] 00:00:00 [facility] Hep B, Adol or Pedi 2002 Completed [facility] Dosage 00:00:00 [facility] Polio (IPV/OPV) 2002 Completed [facility] 00:00:00 [facility] DTAP 2002 Completed [facility] 00:00:00 [facility] HIB 4 Dose Schedule 2002 Completed [facility] 00:00:00 [facility] Hep B, Adol or Pedi 2002 Completed [facility] Dosage 00:00:00 [facility] Polio (IPV/OPV) 2002 Completed [facility] 00:00:00 [facility] DTAP 2002 Completed [facility] 00:00:00 [facility] HIB 4 Dose Schedule 2002 Completed [facility] 00:00:00 [facility] Hep B, Adol or Pedi 2002 Completed [facility] Dosage 00:00:00 [facility] Polio (IPV/OPV) 2002 Completed [facility] 00:00:00 [facility] DTAP 2002 Completed [facility] 00:00:00 [facility] HIB 4 Dose Schedule 2002 Completed [facility] 00:00:00 [facility] Hep B, Adol or Pedi 2002 Completed [facility] Dosage 00:00:00 [facility] Polio (IPV/OPV) 2002 Completed [facility] 00:00:00 [facility] DTAP 2002 Completed [facility] 00:00:00 [facility] HIB 4 Dose Schedule 2002 Completed [facility] 00:00:00 [facility] Hep B, Adol or Pedi 2002 Completed [facility] Dosage 00:00:00 [facility] Polio (IPV/OPV) 2002 Completed [facility] 00:00:00 [facility] DTAP 2002 Completed [facility] 00:00:00 [facility] DTAP 2002 Completed [facility] 00:00:00 [facility] HIB 4 Dose Schedule 2002 Completed [facility] 00:00:00 [facility] Hep B, Adol or Pedi 2002 Completed [facility] Dosage 00:00:00 [facility] Polio (IPV/OPV) 2002 Completed [facility] 00:00:00 [facility] DTAP 2002 Completed [facility] 00:00:00 [facility] HIB 4 Dose Schedule 2002 Completed [facility] 00:00:00 [facility] HIB 4 Dose Schedule 2002 Completed [facility] 00:00:00 [facility] Hep B, Adol or Pedi 2002 Completed [facility] Dosage 00:00:00 [facility] Polio (IPV/OPV) 2002 Completed [facility] 00:00:00 [facility] DTAP 2002 Completed [facility] 00:00:00 [facility] HIB 4 Dose Schedule 2002 Completed [facility] 00:00:00 [facility] Hep B, Adol or Pedi 2002 Completed [facility] Dosage 00:00:00 [facility] Polio (IPV/OPV) 2002 Completed [facility] 00:00:00 [facility] Hep B, Adol or Pedi 2002 Completed [facility] Dosage 00:00:00 [facility] DTAP 2002 Completed [facility] 00:00:00 [facility] HIB 4 Dose Schedule 2002 Completed [facility] 00:00:00 [facility] Hep B, Adol or Pedi 2002 Completed [facility] Dosage 00:00:00 [facility] Polio (IPV/OPV) 2002 Completed [facility] 00:00:00 [facility] Polio (IPV/OPV) 2002 Completed [facility] 00:00:00 [facility] DTAP 2002 Completed [facility] 00:00:00 [facility] HIB 4 Dose Schedule 2002 Completed [facility] 00:00:00 [facility] Hep B, Adol or Pedi 2002 Completed [facility] Dosage 00:00:00 [facility] Polio (IPV/OPV) 2002 Completed [facility] 00:00:00 [facility] DTAP 2002 Completed [facility] 00:00:00 [facility] HIB 4 Dose Schedule 2002 Completed [facility] 00:00:00 [facility] Hep B, Adol or Pedi 2002 Completed [facility] Dosage 00:00:00 [facility] Polio (IPV/OPV) 2002 Completed [facility] 00:00:00 [facility] DTAP 2002 Completed [facility] 00:00:00 [facility] HIB 4 Dose Schedule 2002 Completed [facility] 00:00:00 [facility] Hep B, Adol or Pedi 2002 Completed [facility] Dosage 00:00:00 [facility] Polio (IPV/OPV) 2002 Completed [facility] 00:00:00 [facility] DTAP 2002 Completed [facility] 00:00:00 [facility] DTAP 2002 Completed [facility] 00:00:00 [facility] HIB 4 Dose Schedule 2002 Completed [facility] 00:00:00 [facility] Hep B, Adol or Pedi 2002 Completed [facility] Dosage 00:00:00 [facility] Polio (IPV/OPV) 2002 Completed [facility] 00:00:00 [facility] HIB 4 Dose Schedule 2002 Completed [facility] 00:00:00 [facility] DTAP 2002 Completed [facility] 00:00:00 [facility] HIB 4 Dose Schedule 2002 Completed [facility] 00:00:00 [facility] Hep B, Adol or Pedi 2002 Completed [facility] Dosage 00:00:00 [facility] Polio (IPV/OPV) 2002 Completed [facility] 00:00:00 [facility] Hep B, Adol or Pedi 2002 Completed [facility] Dosage 00:00:00 [facility] DTAP 2002 Completed [facility] 00:00:00 [facility] HIB 4 Dose Schedule 2002 Completed [facility] 00:00:00 [facility] Hep B, Adol or Pedi 2002 Completed [facility] Dosage 00:00:00 [facility] Polio (IPV/OPV) 2002 Completed [facility] 00:00:00 [facility] Polio (IPV/OPV) 2002 Completed [facility] 00:00:00 [facility] DTAP 2002 Completed [facility] 00:00:00 [facility] HIB 4 Dose Schedule 2002 Completed [facility] 00:00:00 [facility] Hep B, Adol or Pedi 2002 Completed [facility] Dosage 00:00:00 [facility] Polio (IPV/OPV) 2002 Completed [facility] 00:00:00 [facility] DTAP 2002 Completed [facility] 00:00:00 [facility] HIB 4 Dose Schedule 2002 Completed [facility] 00:00:00 [facility] Hep B, Adol or Pedi 2002 Completed [facility] Dosage 00:00:00 [facility] Polio (IPV/OPV) 2002 Completed [facility] 00:00:00 [facility] DTAP 2002 Completed [facility] 00:00:00 [facility] HIB 4 Dose Schedule 2002 Completed [facility] 00:00:00 [facility] Hep B, Adol or Pedi 2002 Completed [facility] Dosage 00:00:00 [facility] Polio (IPV/OPV) 2002 Completed [facility] 00:00:00 [facility] DTAP 2002 Completed [facility] 00:00:00 [facility] HIB 4 Dose Schedule 2002 Completed [facility] 00:00:00 [facility] Hep B, Adol or Pedi 2002 Completed [facility] Dosage 00:00:00 [facility] Polio (IPV/OPV) 2002 Completed [facility] 00:00:00 [facility] DTAP 2002 Completed [facility] 00:00:00 [facility] DTAP 2002 Completed [facility] 00:00:00 [facility] HIB 4 Dose Schedule 2002 Completed [facility] 00:00:00 [facility] Hep B, Adol or Pedi 2002 Completed [facility] Dosage 00:00:00 [facility] Polio (IPV/OPV) 2002 Completed [facility] 00:00:00 [facility] HIB 4 Dose Schedule 2002 Completed [facility] 00:00:00 [facility] DTAP 2002 Completed [facility] 00:00:00 [facility] HIB 4 Dose Schedule 2002 Completed [facility] 00:00:00 [facility] Hep B, Adol or Pedi 2002 Completed [facility] Dosage 00:00:00 [facility] Polio (IPV/OPV) 2002 Completed [facility] 00:00:00 [facility] DTAP 2002 Completed [facility] 00:00:00 [facility] HIB 4 Dose Schedule 2002 Completed [facility] 00:00:00 [facility] Hep B, Adol or Pedi 2002 Completed [facility] Dosage 00:00:00 [facility] Polio (IPV/OPV) 2002 Completed [facility] 00:00:00 [facility] Hep B, Adol or Pedi 2002 Completed [facility] Dosage 00:00:00 [facility] DTAP 2002 Completed [facility] 00:00:00 [facility] HIB 4 Dose Schedule 2002 Completed [facility] 00:00:00 [facility] Hep B, Adol or Pedi 2002 Completed [facility] Dosage 00:00:00 [facility] Polio (IPV/OPV) 2002 Completed [facility] 00:00:00 [facility] Polio (IPV/OPV) 2002 Completed [facility] 00:00:00 [facility] DTAP 2002 Completed [facility] 00:00:00 [facility] HIB 4 Dose Schedule 2002 Completed [facility] 00:00:00 [facility] Hep B, Adol or Pedi 2002 Completed [facility] Dosage 00:00:00 [facility] Polio (IPV/OPV) 2002 Completed [facility] 00:00:00 [facility] DTAP 2002 Completed [facility] 00:00:00 [facility] HIB 4 Dose Schedule 2002 Completed [facility] 00:00:00 [facility] Hep B, Adol or Pedi 2002 Completed [facility] Dosage 00:00:00 [facility] Polio (IPV/OPV) 2002 Completed [facility] 00:00:00 [facility] DTAP 2002 Completed [facility] 00:00:00 [facility] HIB 4 Dose Schedule 2002 Completed [facility] 00:00:00 [facility] Hep B, Adol or Pedi 2002 Completed [facility] Dosage 00:00:00 [facility] Polio (IPV/OPV) 2002 Completed [facility] 00:00:00 [facility] DTAP 2002 Completed [facility] 00:00:00 [facility] HIB 4 Dose Schedule 2002 Completed [facility] 00:00:00 [facility] Hep B, Adol or Pedi 2002 Completed [facility] Dosage 00:00:00 [facility] Polio (IPV/OPV) 2002 Completed [facility] 00:00:00 [facility] DTAP 2002 Completed [facility] 00:00:00 [facility] HIB 4 Dose Schedule 2002 Completed [facility] 00:00:00 [facility] Hep B, Adol or Pedi 2002 Completed [facility] Dosage 00:00:00 [facility] Polio (IPV/OPV) 2002 Completed [facility] 00:00:00 [facility] DTAP 2002 Completed [facility] 00:00:00 [facility] DTAP 2002 Completed [facility] 00:00:00 [facility] HIB 4 Dose Schedule 2002 Completed [facility] 00:00:00 [facility] Hep B, Adol or Pedi 2002 Completed [facility] Dosage 00:00:00 [facility] Polio (IPV/OPV) 2002 Completed [facility] 00:00:00 [facility] HIB 4 Dose Schedule 2002 Completed [facility] 00:00:00 [facility] DTAP 2002 Completed [facility] 00:00:00 [facility] HIB 4 Dose Schedule 2002 Completed [facility] 00:00:00 [facility] Hep B, Adol or Pedi 2002 Completed [facility] Dosage 00:00:00 [facility] Polio (IPV/OPV) 2002 Completed [facility] 00:00:00 [facility] DTAP 2002 Completed [facility] 00:00:00 [facility] Hep B, Adol or Pedi 2002 Completed [facility] Dosage 00:00:00 [facility] HIB 4 Dose Schedule 2002 Completed [facility] 00:00:00 [facility] Hep B, Adol or Pedi 2002 Completed [facility] Dosage 00:00:00 [facility] Polio (IPV/OPV) 2002 Completed [facility] 00:00:00 [facility] Polio (IPV/OPV) 2002 Completed [facility] 00:00:00 [facility] DTAP 2002 Completed [facility] 00:00:00 [facility] HIB 4 Dose Schedule 2002 Completed [facility] 00:00:00 [facility] Hep B, Adol or Pedi 2002 Completed [facility] Dosage 00:00:00 [facility] Polio (IPV/OPV) 2002 Completed [facility] 00:00:00 [facility] DTAP 2002 Completed [facility] 00:00:00 [facility] HIB 4 Dose Schedule 2002 Completed [facility] 00:00:00 [facility] Hep B, Adol or Pedi 2002 Completed [facility] Dosage 00:00:00 [facility] Polio (IPV/OPV) 2002 Completed [facility] 00:00:00 [facility] DTAP 2002 Completed [facility] 00:00:00 [facility] HIB 4 Dose Schedule 2002 Completed [facility] 00:00:00 [facility] Hep B, Adol or Pedi 2002 Completed [facility] Dosage 00:00:00 [facility] Polio (IPV/OPV) 2002 Completed [facility] 00:00:00 [facility] DTAP 2002 Completed [facility] 00:00:00 [facility] HIB 4 Dose Schedule 2002 Completed [facility] 00:00:00 [facility] Hep B, Adol or Pedi 2002 Completed [facility] Dosage 00:00:00 [facility] Polio (IPV/OPV) 2002 Completed [facility] 00:00:00 [facility] DTAP 2002 Completed [facility] 00:00:00 [facility] HIB 4 Dose Schedule 2002 Completed [facility] 00:00:00 [facility] DTAP 2002 Completed [facility] 00:00:00 [facility] Hep B, Adol or Pedi 2002 Completed [facility] Dosage 00:00:00 [facility] Polio (IPV/OPV) 2002 Completed [facility] 00:00:00 [facility] DTAP 2002 Completed [facility] 00:00:00 [facility] HIB 4 Dose Schedule 2002 Completed [facility] 00:00:00 [facility] Hep B, Adol or Pedi 2002 Completed [facility] Dosage 00:00:00 [facility] HIB 4 Dose Schedule 2002 Completed [facility] 00:00:00 [facility] Polio (IPV/OPV) 2002 Completed [facility] 00:00:00 [facility] DTAP 2002 Completed [facility] 00:00:00 [facility] HIB 4 Dose Schedule 2002 Completed [facility] 00:00:00 [facility] Hep B, Adol or Pedi 2002 Completed [facility] Dosage 00:00:00 [facility] Polio (IPV/OPV) 2002 Completed [facility] 00:00:00 [facility] DTAP 2002 Completed [facility] 00:00:00 [facility] Hep B, Adol or Pedi 2002 Completed [facility] Dosage 00:00:00 [facility] HIB 4 Dose Schedule 2002 Completed [facility] 00:00:00 [facility] Hep B, Adol or Pedi 2002 Completed [facility] Dosage 00:00:00 [facility] Polio (IPV/OPV) 2002 Completed [facility] 00:00:00 [facility] DTAP 2002 Completed [facility] 00:00:00 [facility] HIB 4 Dose Schedule 2002 Completed [facility] 00:00:00 [facility] Polio (IPV/OPV) 2002 Completed [facility] 00:00:00 [facility] Hep B, Adol or Pedi 2002 Completed [facility] Dosage 00:00:00 [facility] Polio (IPV/OPV) 2002 Completed [facility] 00:00:00 [facility] DTAP 2002 Completed [facility] 00:00:00 [facility] HIB 4 Dose Schedule 2002 Completed [facility] 00:00:00 [facility] Hep B, Adol or Pedi 2002 Completed [facility] Dosage 00:00:00 [facility] Polio (IPV/OPV) 2002 Completed [facility] 00:00:00 [facility] DTAP 2002 Completed [facility] 00:00:00 [facility] HIB 4 Dose Schedule 2002 Completed [facility] 00:00:00 [facility] Hep B, Adol or Pedi 2002 Completed [facility] Dosage 00:00:00 [facility] Polio (IPV/OPV) 2002 Completed [facility] 00:00:00 [facility] DTAP 2002 Completed [facility] 00:00:00 [facility] HIB 4 Dose Schedule 2002 Completed [facility] 00:00:00 [facility] Hep B, Adol or Pedi 2002 Completed [facility] Dosage 00:00:00 [facility] Polio (IPV/OPV) 2002 Completed [facility] 00:00:00 [facility] DTAP 2002 Completed [facility] 00:00:00 [facility] HIB 4 Dose Schedule 2002 Completed [facility] 00:00:00 [facility] Hep B, Adol or Pedi 2002 Completed [facility] Dosage 00:00:00 [facility] Polio (IPV/OPV) 2002 Completed [facility] 00:00:00 [facility] DTAP 2002 Completed [facility] 00:00:00 [facility] HIB 4 Dose Schedule 2002 Completed [facility] 00:00:00 [facility] Hep B, Adol or Pedi 2002 Completed [facility] Dosage 00:00:00 [facility] Polio (IPV/OPV) 2002 Completed [facility] 00:00:00 [facility] DTAP 2002 Completed [facility] 00:00:00 [facility] HIB 4 Dose Schedule 2002 Completed [facility] 00:00:00 [facility] Hep B, Adol or Pedi 2002 Completed [facility] Dosage 00:00:00 [facility] Polio (IPV/OPV) 2002 Completed [facility] 00:00:00 [facility] DTAP 2002 Completed [facility] 00:00:00 [facility] HIB 4 Dose Schedule 2002 Completed [facility] 00:00:00 [facility] Hep B, Adol or Pedi 2002 Completed [facility] Dosage 00:00:00 [facility] Polio (IPV/OPV) 2002 Completed [facility] 00:00:00 [facility] DTAP 2002 Completed [facility] 00:00:00 [facility] DTAP 2002 Completed [facility] 00:00:00 [facility] HIB 4 Dose Schedule 2002 Completed [facility] 00:00:00 [facility] Hep B, Adol or Pedi 2002 Completed [facility] Dosage 00:00:00 [facility] Polio (IPV/OPV) 2002 Completed [facility] 00:00:00 [facility] HIB 4 Dose Schedule 2002 Completed [facility] 00:00:00 [facility] DTAP 2002 Completed [facility] 00:00:00 [facility] HIB 4 Dose Schedule 2002 Completed [facility] 00:00:00 [facility] Hep B, Adol or Pedi 2002 Completed [facility] Dosage 00:00:00 [facility] Polio (IPV/OPV) 2002 Completed [facility] 00:00:00 [facility] DTAP 2002 Completed [facility] 00:00:00 [facility] HIB 4 Dose Schedule 2002 Completed [facility] 00:00:00 [facility] Hep B, Adol or Pedi 2002 Completed [facility] Dosage 00:00:00 [facility] Hep B, Adol or Pedi [...] 2002 Completed [facility] Dosage 00:00:00 [facility] Hep B, Adol or Pedi [...] 2002 Completed [facility] Dosage 00:00:00 [facility] Hep B, Adol or Pedi 2002 Completed [facility] Dosage 00:00:00 [facility] Vital Signs Vital Name Observation Time Observation Value Comments Source Systolic blood 2022-05-27 20:21:00 121 mm[Hg] [facility] Diastolic blood 2022-05-27 20:21:00 69 mm[Hg] [facility] pressure [facility] Heart rate 2022-05-27 20:21:00 72 /min [facility] Body temperature 2022-05-27 20:21:00 37.11 [facility] Respiratory rate 2022-05-27 20:21:00 17 /min [facility] Body height 2022-05-27 20:21:00 157.5 cm [facility] Body weight 2022-05-27 20:21:00 84.55 kg [facility] BMI 2022-05-27 20:21:00 34.09 kg/m2 [facility] Systolic blood 2022-02-05 19:09:00 137 mm[Hg] [facility] Diastolic blood 2022-02-05 19:09:00 79 mm[Hg] [facility] pressure [facility] Heart rate 2022-02-05 19:09:00 94 /min [facility] Body temperature 2022-02-05 19:09:00 37.06 [facility] Respiratory rate 2022-02-05 19:09:00 18 /min [facility] Body height 2022-02-05 19:09:00 157.5 cm [facility] Body weight 2022-02-05 19:09:00 84.732 kg [facility] BMI 2022-02-05 19:09:00 34.17 kg/m2 [facility] Systolic blood 2022-01-31 15:02:00 122 mm[Hg] [facility] Diastolic blood 2022-01-31 15:02:00 77 mm[Hg] [facility] pressure [facility] Heart rate 2022-01-31 15:02:00 67 /min [facility] Body temperature 2022-01-31 15:02:00 37.11 [facility] Body height 2022-01-31 15:02:00 157.5 cm [facility] Body weight 2022-01-31 15:02:00 82.555 kg [facility] BMI 2022-01-31 15:02:00 33.29 kg/m2 [facility] BMI 2022-01-02 14:12:00 32.56 kg/m2 [facility] Systolic blood 2022-01-02 14:12:00 109 mm[Hg] [facility] pressure [facility] Diastolic blood 2022-01-02 14:12:00 67 mm[Hg] [facility] pressure [facility] Heart rate 2022-01-02 14:12:00 58 /min [facility] Body temperature 2022-01-02 14:12:00 37.06 [facility] Respiratory rate 2022-01-02 14:12:00 18 /min [facility] Body height 2022-01-02 14:12:00 157.5 cm [facility] Body weight 2022-01-02 14:12:00 80.74 kg [facility] Systolic blood 2021-01-06 02:00:00 149 mm[Hg] [facility] pressure [facility] Diastolic blood 2021-01-06 02:00:00 97 mm[Hg] [facility] pressure [facility] Heart rate 2021-01-06 02:00:00 101 /min [facility] Respiratory rate 2021-01-06 02:00:00 17 /min [facility] Oxygen saturation in 2021-01-06 02:00:00 100 /min University of Arterial blood by [facility] Pulse oximetry Branch Body temperature 2021-01-06 01:46:00 36.06 Cara Univ ersity of [facility] Body height 2021-01-06 01:46:00 157.5 cm Universi ty of [facility] Body weight 2021-01-06 01:46:00 81.647 kg Universi ty of [facility] Branch BMI 2021-01-06 01:46:00 32.92 kg/m2 Universi ty of [facility] Body mass index 2021-01-06 01:46:00 96.57 % Unive rsity of (BMI) [Percentile] [facility] ical Per age and sex Branch Systolic blood 2020-04-02 17:35:00 116 mm[Hg] Univer sity of pressure [facility] Diastolic blood 2020-04-02 17:35:00 72 mm[Hg] Unive rsity of pressure [facility] Heart rate 2020-04-02 16:53:00 73 /min Universi ty of [facility] Body temperature 2020-04-02 16:53:00 36.44 Cara Univ ersity of [facility] Respiratory rate 2020-04-02 16:53:00 18 /min Univ ersity of [facility] Body height 2020-04-02 16:53:00 159 cm Universi ty [facility] Body weight 2020-04-02 16:53:00 82.101 kg Universi ty [facility] BMI 2020-04-02 16:53:00 32.48 kg/m2 Universi ty of [facility] Oxygen saturation in 2020-04-02 16:53:00 98 /min University of Arterial blood by [facility] Pulse oximetry Branch Systolic blood 2020-04-02 17:35:00 116 mm[Hg] Univer sity of pressure [facility] Diastolic blood 2020-04-02 17:35:00 72 mm[Hg] Unive rsity of pressure [facility] Heart rate 2020-04-02 16:53:00 73 /min Universi ty of [facility] Body temperature 2020-04-02 16:53:00 36.44 Cara Univ ersity of [facility] Respiratory rate 2020-04-02 16:53:00 18 /min Univ ersity of [facility] Body height 2020-04-02 16:53:00 159 cm Universi ty of [facility] Body weight 2020-04-02 16:53:00 82.101 kg Universi ty of [facility] BMI 2020-04-02 16:53:00 32.48 kg/m2 Universi ty of [facility] Oxygen saturation in 2020-04-02 16:53:00 98 /min University of Arterial blood by [employer] [facility]ros Pulse oximetry Branch Systolic blood 2020-02-24 19:17:00 121 mm[Hg] Univer sity of pressure [facility] Diastolic blood 2020-02-24 19:17:00 77 mm[Hg] Unive rsity of pressure [facility] Heart rate 2020-02-24 19:16:00 84 /min Universi ty of [facility] Body temperature 2020-02-24 19:16:00 36.56 Cara Univ ersity of [place] [facility] Respiratory rate 2020-02-24 19:16:00 18 /min Univ ersity of [facility] Body weight 2020-02-24 19:16:00 83.598 kg Universi ty of [facility] Oxygen saturation in 2020-02-24 19:16:00 100 /min University of Arterial blood by [facility] Pulse oximetry Branch Systolic blood 2020-01-30 21:13:00 123 mm[Hg] Univer sity of pressure [facility] Diastolic blood 2020-01-30 21:13:00 70 mm[Hg] Unive rsity of pressure [facility] Heart rate 2020-01-30 21:13:00 83 /min Universi ty of [facility] Body temperature 2020-01-30 21:13:00 37.11 Cara Univ ersity of [facility] Respiratory rate 2020-01-30 21:13:00 18 /min Univ ersity of [facility] Body height 2020-01-30 21:13:00 157.5 cm Universi ty of [facility] Body weight 2020-01-30 21:13:00 85.276 kg Universi ty [facility] BMI 2020-01-30 21:13:00 34.39 kg/m2 Universi ty [facility] Systolic blood 2020-01-10 20:41:00 129 mm[Hg] Univer sity of pressure [facility] Diastolic blood 2020-01-10 20:41:00 72 mm[Hg] Unive rsity of pressure [facility] Heart rate 2020-01-10 20:41:00 98 /min Universi ty of [facility] Body temperature 2020-01-10 20:41:00 36.72 Cara Univ ersity of [facility] Respiratory rate 2020-01-10 20:41:00 18 /min Univ ersity of [facility] Body height 2020-01-10 20:41:00 157.5 cm Universi ty of [facility] Body weight 2020-01-10 20:41:00 85.276 kg Universi ty [facility] BMI 2020-01-10 20:41:00 34.39 kg/m2 Universi ty [facility] Body temperature 2019-10-12 19:39:00 35.72 Cara Univ ersity of [facility] Body height 2019-10-12 19:39:00 159 cm Universi ty of [place] [facility] Body weight 2019-10-12 19:39:00 82.6 kg Universi ty of [facility] BMI 2019-10-12 19:39:00 32.67 kg/m2 Universi ty of [facility] Systolic blood 2019-10-07 18:10:00 121 mm[Hg] Univer sity of pressure [facility] Diastolic blood 2019-10-07 18:10:00 79 mm[Hg] Unive rsity of pressure [facility] Heart rate 2019-10-07 18:10:00 77 /min Universi ty of [facility] Body temperature 2019-10-07 18:10:00 36.89 Cara Univ ersity of [facility] Respiratory rate 2019-10-07 18:10:00 18 /min Univ ersity of [facility] Body height 2019-10-07 18:10:00 157.5 cm Universi ty of [facility] Body weight 2019-10-07 18:10:00 81.647 kg Universi ty of [facility] BMI 2019-10-07 18:10:00 32.92 kg/m2 Universi ty of [facility] Systolic blood 2019-10-06 20:18:00 123 mm[Hg] Univer sity of pressure [facility] Diastolic blood 2019-10-06 20:18:00 86 mm[Hg] Unive rsity of pressure [facility] Heart rate 2019-10-06 20:18:00 96 /min Universi ty of [facility] Body temperature 2019-10-06 20:18:00 36.78 Cara Univ ersity of [facility] Respiratory rate 2019-10-06 20:18:00 16 /min Univ ersity of [facility] Body height 2019-10-06 20:18:00 157.5 cm Universi ty of [facility] Body weight 2019-10-06 20:18:00 80.786 kg Universi ty of [facility] BMI 2019-10-06 20:18:00 32.57 kg/m2 Universi ty of [facility] Oxygen saturation in 2019-10-06 20:18:00 98 /min University of Arterial blood by [facility] Pulse oximetry Branch Systolic blood 2019-08-04 18:52:00 129 mm[Hg] Univer sity of pressure [facility] Diastolic blood 2019-08-04 18:52:00 78 mm[Hg] Unive rsity of pressure [facility] Heart rate 2019-08-04 18:52:00 86 /min Universi ty of [facility] Body temperature 2019-08-04 18:52:00 37.22 Cara Univ ersity of [facility] Respiratory rate 2019-08-04 18:52:00 18 /min Univ ersity of [facility] Body height 2019-08-04 18:52:00 157.5 cm Universi ty [facility] Body weight 2019-08-04 18:52:00 84.369 kg Universi ty [facility] BMI 2019-08-04 18:52:00 34.02 kg/m2 Universi ty of [facility] Systolic blood 2019-05-23 21:28:00 121 mm[Hg] Univer sity of pressure [facility] Diastolic blood 2019-05-23 21:28:00 77 mm[Hg] Unive rsity of pressure [facility] Heart rate 2019-05-23 21:28:00 80 /min Universi ty of [facility] Body temperature 2019-05-23 21:28:00 37.39 Cara Univ ersity of [facility] Respiratory rate 2019-05-23 21:28:00 18 /min Univ ersity of [facility] Body height 2019-05-23 21:28:00 158.5 cm Universi ty [facility] Body weight 2019-05-23 21:28:00 85.095 kg Universi ty [facility] BMI 2019-05-23 21:28:00 33.87 kg/m2 Universi ty [facility] Oxygen saturation in 2019-05-23 21:28:00 100 /min University Arterial blood by [facility] Pulse oximetry Branch Systolic blood 2019-05-16 21:51:00 123 mm[Hg] Univer sity of pressure [facility] Diastolic blood 2019-05-16 21:51:00 73 mm[Hg] Unive rsity of pressure [facility] Heart rate 2019-05-16 21:51:00 72 /min Universi ty of [facility] Body temperature 2019-05-16 21:51:00 36.78 Cara Univ ersity of [facility] Respiratory rate 2019-05-16 21:51:00 18 /min Univ ersity of [facility] Body height 2019-05-16 21:51:00 157.5 cm Universi ty of [place] [facility] Body weight 2019-05-16 21:51:00 85.276 kg Universi ty of [facility] BMI 2019-05-16 21:51:00 34.39 kg/m2 Universi ty [facility] Body temperature 2019-05-03 20:09:00 36.83 Cara Univ ersity of [facility] Body height 2019-05-03 20:09:00 157.5 cm Universi ty [facility] Body weight 2019-05-03 20:09:00 82.2 kg Universi ty [facility] BMI 2019-05-03 20:09:00 33.14 kg/m2 Universi ty [facility] Body temperature 2019-03-22 21:03:00 37 Cara Univ ersity [facility] Body weight 2019-03-22 21:03:00 83.4 kg Universi ty [facility] Systolic blood 2018-11-12 13:21:00 120 mm[Hg] Univer sity of pressure [facility] Diastolic blood 2018-11-12 13:21:00 78 mm[Hg] Unive rsity of pressure [facility] Heart rate 2018-11-12 13:21:00 72 /min Universi ty of [facility] Body temperature 2018-11-12 13:21:00 37.83 Cara Univ ersity of [facility] Respiratory rate 2018-11-12 13:21:00 18 /min Univ ersity of [facility] Body weight 2018-11-12 13:21:00 76.023 kg Universi ty [facility] BMI 2018-11-12 13:21:00 29.69 kg/m2 Universi ty [facility] Systolic blood 2018-11-11 13:42:00 123 mm[Hg] Univer sity of pressure [facility] Diastolic blood 2018-11-11 13:42:00 81 mm[Hg] Unive rsity of pressure [facility] Heart rate 2018-11-11 13:42:00 64 /min Universi ty of [facility] Body temperature 2018-11-11 13:42:00 36.94 Cara Univ ersity of [facility] Respiratory rate 2018-11-11 13:42:00 18 /min Univ ersity of [facility] Body height 2018-11-11 13:42:00 160 cm Universi ty [facility] Body weight 2018-11-11 13:42:00 75.297 kg [facility] BMI 2018-11-11 13:42:00 29.41 kg/m2 [facility] Systolic blood 2018-10-07 20:01:00 123 mm[Hg] Univer sity of pressure [facility] Diastolic blood 2018-10-07 20:01:00 80 mm[Hg] Unive [facility] Heart rate 2018-10-07 20:01:00 97 /min [facility] Body temperature 2018-10-07 20:01:00 36.56 Cara [facility] Respiratory rate 2018-10-07 20:01:00 16 /min [facility] Body height 2018-10-07 20:01:00 158.7 cm [facility] Body weight 2018-10-07 20:01:00 74.844 kg [facility] BMI 2018-10-07 20:01:00 29.72 kg/m2 [facility] Oxygen saturation in 2018-10-07 20:01:00 99 /min [facility] Arterial blood by [facility] Pulse oximetry Branch Procedures Procedure Date / Time Performing Source Performed Clinician POCT URINALYSIS W/O SPECIFIC 2022-05-27 Kori Casarez [facility] GRAVITY 20:36:00 [facility] PATIENT FINANCIAL POLICY 2022-05-27 Doctor Unassigned, [facility] 20:07:26 [place] [facility] BI ULTRASOUND BREAST COMPLETE 2022-02-21 [facility] 19:23:00 [facility] [place] US PELVIS COMPLETE WITH 2022-02-21 Kori Casarez [facility] TRANSVAGINAL 17:55:34 [facility] [place] DISCLOSURE AND CONSENT, 2022-01-31 Doctor Unassigned, [facility] MEDICAL AND SURGICAL 06:01:00 [place] [facility] PROCEDURES POCT TEST 2022-01-31 Brooklyn Garduno [facility] 00:00:00 [facility] [place] ASSIGNMENT OF BENEFITS 2022-01-02 Doctor Unassigned, [facility] 14:07:23 [place] [facility] POCT TEST 2021-01-06 Roma Adame [facility] 02:44:00 Medical Branch URINALYSIS 2021-01-06 Roma Adame [facility] ex 02:34:00 [facility] Branch URINE DRUG (IMMUNOASSAY) - 2021-01-[address] [facility] COMPREHENSIVE DRUG SCREEN W/O 02:34:00 Me dical Branch REFLEX LACTIC ACID WHOLE BLOOD 2021-01-06 Roma Adame [facility] 02:23:00 Medical Branch COMP. METABOLIC PANEL (05250) 2021-01-06 Roma Adame [facility] 02:03:00 [facility] ETHANOL 2021-01-06 Roma Adame [facility] 02:03:00 Medical Branch CBC WITH DIFF 2021-01-06 Roma Adame [facility] 02:03:00 [facility] MENINGOCOCCAL B VACCINE, OMV, 2020-04-16 Catracho Tamayo [facility] 2 DOSE, IM 16:43:42 Medical Branch POCT RAPID STREP SCREEN FOR 2020-02-24 Catracho Tamayo [facility] GROUP A 19:24:00 [facility] EXTERNAL PROVIDER RECORDS 2019-10-13 Doctor Unassigned, [facility] 05:01:00 [place] [facility] PEDI ELECTROENCEPHALOGRAM 2019-10-12 Dalia Arreguin [facility] 00:00:00 Medical Branch DISCLOSURE AND CONSENT, 2019-10-07 Doctor Unassrenu, [facility] MEDICAL AND SURGICAL 05:01:00 [place] [facility] PROCEDURES AUTHORIZATION TO RELEASE PHI 2019-10-06 Doctor Unashannan, [facility] TO [facility] 05:01:00 [facility] [facility] BI ULTRASOUND BREAST LIMITED 2019-08-16 Alexandria Whitmore [facility] LEFT 13:29:57 [facility] CONSENT FOR CONTRACEPTION 2019-08-04 Doctor Unassrenu, [facility] 05:01:00 [place] [facility] POCT TEST 2019-08-04 [place] Whitmore [place] 00:00:00 Medical Branch POCT URINALYSIS W/O SPECIFIC 2019-08-04 Alexandria Whitmore [facility] GRAVITY 00:00:00 Medical Branch AGREEMENTS AUTHORIZATIONS AND 2019-06-16 Doctor Unassigned, [facility] IRREVOCABLE ASSIGNMENTS (FORM 05:01:00 [place] [facility] 2000) CONSENT/REFUSAL FOR DIAGNOSIS 2019-05-03 Doctor Unassigned, [facility] AND TREATMENT 19:11:33 [place] [facility] URINE CULTURE 2019-03-22 Eddie Demetrius [place] 21:53:00 [facility] CONSENT FOR DEPO-PROVERA 2018-11-11 Doctor Unassigned, [facility] 05:01:00 [place] [facility] MENINGOCOCCAL B 2018-10-07 [facility]UMENBA[facility] 2 OR 3 DOSE 20:59:48 [facility] SERIES, IM MENACTRA (MCV4-D) VACCINE 2018-10-07 Catracho Tamayo [facility] 20:59:21 [facility] Encounters Start End Encounter Admission Attending Care Care Encounter Source Date/Time Date/Time Type Type Clinicians Facility Department ID 2021-01-[address] [facility] [id number] Univers 07:20:19 ity [facility] 2023-01-05 2023-01-05 [facility] [id number] Univers 08:30:00 08:30:00 KORI ity [facility] 2022-06-16 2022-06-16 [facility] [id number] Univers 00:00:00 00:00:00 Kori RIVERA 350.1.13.10 i ty [facility] [place] PROF[place] [id number] [facility] [address] Branch [facility] 2022-06-13 2022-06-13 Out[facility] [id number] Univers 14:05:25 23:59:00 KORI ity [facility] 2022-06-13 2022-06-13 [facility] MADY Casarez 1.2.840.114 [id number] Univers 14:05:25 23:59:00 Encounter Kori [facility] [id number] [facility] 4.[place] [id number] [facility] [address] [place] 2022-06-06 2022-06-06 Outpatient R HERMELINDO [facility] [id number] Univers 00:00:00 00:00:00 KORI antoine [facility] 2022-05-27 2022-05-27 Outpatient R HERMELINDO [facility] [id number] Univers 14:00:00 15:06:27 KORI antoine [facility] 2022-05-27 2022-05-27 [facility] [id number] Univers 14:00:00 15:06:27 Visit Kori NICOLE 350.1.13.10 i ty of [place] [id number] Ga dical NAL 134 [facility] 2022-05-27 2022-05-27 Orders Doctor PATITO 1.2.840.114 [id number] Univers 00:00:00 00:00:00 Only Unassigned, JACQUE 350.1.13.10 ity of [place] [facility] 4.2.7.2.686 Tawanda as [id number] [facility] 009 Branch 2022-02-21 2022-02-21 [facility] Hermelindo, [facility] 1.2.840.114 [id number] Univers 12:00:22 23:59:00 Encounter Kori Y HEALTH 350.1.13.10 ity of [place] [id number] [facility] [address] [place] 2022-02-21 2022-02-21 Outpatient R HERMELINDO [facility] [id number] Univers 10:48:03 11:59:00 KOIR ityoly [facility] 2022-02-21 2022-02-21 [facility] 1.2.840.114 [id number] Univers 10:48:03 11:59:00 Encounter Kori Y HEALTH 350.1.13.10 ity of [place] [id number] [facility] [address] [place] 2022-02-05 2022-02-05 Outpatient Suly GARDUNO [facility] [id number] Univers 13:00:00 13:36:35 [place] antoine [facility] 2022-02-05 2022-02-05 Office Ad, [facility] [id number] Univers 13:00:00 13:36:35 Visit [place] SAPP 350.1.13.10 i ty of [place] [id number] [address] 2022-02-05 2022-02-05 Telephone Ad, [facility] [id number] Univers 00:00:00 00:00:00 [place] Ridley NICOLE 350.1.13.10 ity of [facility] [place] [id number] Ga dical NAL [address] [place] [address] 2022-02-05 2022-02-05 [facility] [id number] Univers 00:00:00 00:00:00 (Out) [place] SAPP 350.1.13.10 i ty of [place] [id number] [address] 2022-01-31 2022-01-31 Outpatient R AD, [facility] [id number] Univers 08:30:00 09:33:19 [place] antoine [facility] 2022-01-31 2022-01-31 [facility] 1.2.840.114 [id number] Univers 08:30:00 09:33:19 Visit [place] Ridley NICOLE 350.1.13.10 ity of [facility] 4.2.7.2.[place] [id number] Ga dical NAL [address] [place] [address] 2022-01-31 2022-01-31 Orders Doctor PATITO 1.2.840.114 [id number] Univers 00:00:00 00:00:00 Only Unassigned, JACQUE 350.1.13.10 ity of [place] [facility] 4.2.7.2.686 Tawanda as [id number] [address] 2022-01-31 2022-01-31 Letter [facility] 1.2.840.114 [id number] Univers 00:00:00 00:00:00 (Out) [place] Rid[place] NICOLE 350.1.13.10 [place]y [place] [id number] Ga dical NAL 134 [facility] 2022-01-13 2022-01-13 Outpatient R GREGORIO DELCID [facility] [id number] Univers 09:00:00 09:00:00 ity of [facility] 2022-01-13 2022-01-13 Telephone Brandt [facility] [id number] Univers 00:00:00 00:00:00 Liu SPECIALTY [address]1.13.[address] [facility] [place].2.7.2.[place] [id number] [address] 2022-01-10 2022-01-10 Outpatient R JONATHAN [facility] [id number] Univers 13:00:00 13:00:00 HAYLEY antoine [facility] 2022-01-02 2022-01-02 Engineer System Administrator 2, Adc Lab [facility] [id number] [id number] Univers 10:45:00 11:00:00 Visit Kori Casarez 350.1.13.10 ity [facility] 4.2.[place] [id number] [facility] 353 [facility] 2022-01-02 2022-01-02 Outpatient R HERMELINDO [facility] [id number] Univers 09:30:00 10:12:42 KORI antoine [facility] 2022-01-02 2022-01-02 Office Hermelindo [facility] [id number] Univers 09:30:00 10:12:42 Visit Kori RIVERA 350.1.13.10 i ty of [facility] 4.2.7.2.[place] [id number] Ga dical [facility] 134 [facility] 2022-01-02 2022-01-02 Orders Doctor CAPUTO [id number] [id number] Univers 00:00:00 00:00:00 Only Unassigned, JACQUE 350.1.13.10 ity of [facility] 4.2.7.2.686 Tawanda as [id number] [facility] [address] [place] 2021-04-03 2021-04-03 Outpatient Suly TAMAYO [facility] [id number] Univers 10:40:00 10:40:00 CATRACHO camiloyoly [facility] 2021-02-22 2021-02-22 [facility]phone [facility] [id number] Univers 00:00:00 00:00:00 Alena RIVERA 350.1.13.10 ity [place] [id number] Ga dical NAL [address] [facility] 2021-02-12 2021-02-12 Telephone [facility] 1.2.840.114 [id number] Univers 00:00:00 00:00:00 Kori RIVERA 350.1.13.10 i ty of [place] [id number] Ga dical NAL 134 [facility] 2021-01-05 2021-01-05 Emergency [facility] [id number] Univers 20:38:00 22:55:00 Roma Rivera 350.1.13.10 ity of [place] [id number] [facility] [address] [place] 2020-08-23 2020-08-23 Outpatient Suly CASAREZ [facility] [id number] Univers 15:00:00 15:00:00 KORI antoine [facility] 2020-08-06 2020-08-06 Outpatient Suly CASAREZ [facility] [id number] Univers 14:00:00 14:00:00 KORI antoine [facility] 2020-07-06 2020-07-06 Outpatient Suly CANALES [facility] [id number] Univers 11:20:00 11:20:34 EMELY antoine [facility] 2020-06-15 2020-06-15 Outpatient Suly CANALES [facility] [id number] Univers 11:20:00 12:18:13 EMELY camiloy of [facility] 2020-06-12 2020-06-12 Patient Jermain [facility] [id number] 00:00:00 00:00:00 Outreach Chinmay PRIMARY 350.1.13.10 [place] CARE 4.2.7.2.686 PAVILLION [id number] 388 2020-06-12 2020-06-12 Patient Jermain [facility] 1.2.840.114 [id number] Univers 00:00:00 00:00:00 Outreach Chinmay PRIMARY 350.1.13.10 i ty of [place] [id number] Ga dic[address] 2020-04-25 2020-04-25 Telephone HaimAlexandria [facility] 1.2.840.114 [id number] 00:00:00 00:00:00 Skyler Rivera 350.1.13.10 [place] 4.2.7.2.686 Professio [id number] [address] 2020-04-25 2020-04-25 Telephone Kate Whitmoreen [facility] 1.2.840.114 [id number] Univers 00:00:00 00:00:00 Skyler Rivera 350.1.13.10 i ty [place] [id number] Ga dical nal 134 [facility] 2020-04-16 2020-04-16 Nurse Nurse, Tony Quevedo [facility] 1.2.84 0.114 [id number] Univers 10:23:22 10:43:22 Visit Alena Erickson 350.1.13. 10 [place] [phone] Ga dical nal 225 [facility] 2020-04-16 2020-04-16 Outpatient R [facility] [id number] Univers 10:20:00 10:20:00 ity of [facility] 2020-04-03 2020-04-03 Engineer System Administrator 2, Adc Lab [facility] 1.2.840.114 [id number] Univers 11:08:11 11:23:11 Visit Alena Erickson 350.1.13. 10 [place] [phone] [facility] 2020-04-03 2020-04-03 Outpatient R DRE [facility] [id number] Univers 11:00:00 11:00:00 ALENA antoine [facility] 2020-04-02 2020-04-02 Carmela Tamayo [facility] 1.2.840.114 [id number] Univers 11:30:50 13:18:47 Encounter Catracho Onward 350.1.13.10 [place] [phone] [facility] 2020-04-02 2020-04-02 [facility] 1.2.840.114 [id number] Univers 10:47:55 11:50:03 Visit Catracho Rivera 350.1.13.10 [place] [phone] [facility] 2020-04-02 2020-04-02 [facility] 1.2.840.114 [id number] 10:47:55 11:50:03 Visit Catracho Onward 350.1.13.10 [place] 4.2.7.2.686 Professio [phone] [address] 2020-04-02 2020-04-02 Outpatient R RONI [facility] [id number] Univers 10:40:00 10:40:00 CATRACHO elina [facility] 2020-04-02 2020-04-02 Kathy Erickson [facility] 1.2.840.114 [id number] Univers 00:00:00 00:00:00 (Out) Alena Rivera 350.1.13.10 [place] [phone] [address] 2020-02-24 2020-02-24 [facility] 1.2.840.114 [id number] Univers 13:11:12 14:13:29 Visit Catracho Rivera 350.1.13.10 i [place] of [place] [phone] [facility] [address] [facility] 2020-02-24 2020-02-24 [facility] [id number] Univers 13:00:00 13:00:00 CATRACHO [facility] 2020-02-01 2020-02-01 Outpatient R [facility] [id number] Univers 13:00:00 13:00:00 [facility] 2020-01-30 2020-01-30 Office Haim Alexandria [facility] 1.2.502.491 [id number] Univers 14:47:20 15:35:45 Visit Skyler Onward 350.1.13.10 i [place] [phone] [facility] 2020-01-30 2020-01-30 Outpatient R ALEXANDRIA WHITMORE [facility] [id number] Univers 15:00:00 15:00:00 [facility] 2020-01-10 2020-01-10 Office [facility] 1.2.852.355 [id number] Univers 14:35:02 16:02:32 Visit Kori Rivera 350.1.13.10 [place] [phone] [facility] 134 [facility] 2020-01-10 2020-01-10 Outpatient R HERMELINDO [facility] [id number] Univers 14:45:00 14:45:00 [facility] 2019-12-15 2019-12-15 Outpatient R HERMELINDO [facility] [id number] Univers 10:45:00 10:45:00 [facility] 2019-12-15 2019-12-15 Telephone [facility] 1.2.861.243 [id number] Univers 00:00:00 00:00:00 Alena A CHAIN SALES CONSULTANT 350.1.13.[address] [facility] 4.2.7.2.686 Tawanda as MATERNAL [phone] Med ical & CHILD 107 [facility] 2019-11-30 2019-11-30 Outpatient R [facility] [id number] Univers 15:00:00 15:00:00 ity of [facility] 2019-11-18 2019-11-18 [facility] [id number] Univers 09:30:00 09:30:00 KORI ity [facility] 2019-11-14 2019-11-14 Telephone Alexandria Whitmore [facility] 1.2.840.114 [id number] Univers 00:00:00 00:00:00 Cam Nicole 350.1.13.10 [place] [phone] Me dical nal 134 [facility] 2019-10-13 2019-10-13 Orders Doctor PATITO 1.2.840.114 [id number] Univers 00:00:00 00:00:00 Only Unassigned, JACQUE 350.1.13.10 ity of [place] [facility] 4.2.7.2.686 Tawanda as [phone] [facility] [address] [place] 2019-10-12 2019-10-12 Hospital Dalia Arreguin [facility] 1.2.840.11 [id number] Univers 12:44:00 23:59:00 Encounter Eeg, Sapna Pedi Neuro SPECIALTY 350.1. 13.10 ity of [place] [phone] [facility] [address] [place] 2019-10-12 2019-10-12 Office Kallie MIMARY 1.2.840.114 [id number] Univers 12:44:33 13:44:33 Visit Dalia Barakat SPECIALTY 350.1.13.10 ity of [place] [phone] [facility] [address] [place] 2019-10-12 2019-10-12 Outpatient R KALLIE [facility] [id number] Univers 13:00:00 13:00:00 DALIA antoine [facility] 2019-10-07 2019-10-07 Office Alexandria Whitmore [facility] 1.2.580.339 [id number] Univers 12:46:26 13:32:19 Visit Skyler Rivera 350.1.13.10 i [place] [phone] Ga dical nal 134 [facility] 2019-10-07 2019-10-07 Outpatient R ALEXANDRIA WHITMORE [facility] [id number] Univers 13:00:00 13:00:00 ity of [facility] 2019-10-07 2019-10-07 Orders Doctor CAPUTO 1.2.840.114 [id number] Univers 00:00:00 00:00:00 Only Unassigned, JACQUE 350.1.13.10 ity of [place] [facility] 4.2.7.2.686 Tawanda as [phone] [address] 2019-10-06 2019-10-06 [facility] 1.2.840.114 [id number] Univers 14:55:54 17:13:05 Visit Alena Rivera 350.1.13.10 it[place] of [place] [phone] [facility] 2019-10-06 2019-10-06 Outpatient R DRE [facility] [id number] Univers 15:00:00 15:00:00 ALENA camiloy [facility] 2019-10-06 2019-10-06 Orders Doctor CAPUTO 1.2.840.114 [id number] Univers 00:00:00 00:00:00 Only Unassigned, JACQUE 350.1.13.10 ity of [place] [facility]OSPITAL 4.2.7.2.686 Tawanda as [phone] [address] 2019-10-05 2019-10-05 Telephone Hermelindo [facility] 1.2.840.114 [id number] Univers 00:00:00 00:00:00 Kori Rivera 350.1.13.10 [place] [phone] [facility] 2019-09-28 2019-09-28 Outpatient R [facility] [id number] Univers 15:30:00 15:30:00 ity of [facility] 2019-09-15 2019-09-15 Outpatient R HERMELINDO [facility] [id number] Univers 15:00:00 15:00:00 KORI ity of [facility] 2019-08-31 2019-08-31 Outpatient R [facility] [id number] Univers 15:00:00 15:00:00 ity of [facility] 2019-08-16 2019-08-16 Outpatient R HAIM ALEXANDRIA [facility] [id number] Univers 07:38:13 23:59:00 ity of [facility] 2019-08-16 2019-08-16 Hospital Haim [facility] 1.2.840.114 [id number] Univers 07:38:00 23:59:00 Encounter Skyler Rivera 350.1.13.10 it[place] of [place] [phone] [address] 2019-08-08 2019-08-08 Case [facility] 1.2.689.927 [id number] Univers 00:00:00 00:00:00 Management Kori Rivera 350.1.13.10 it[place] of [place] [phone] Ga dical nal [address] [place] [address] 2019-08-04 2019-08-04 Office Alexandria Whitmore [facility] 1.2.037.505 [id number] Univers 13:33:06 14:36:24 Visit Skyler Rivera 350.1.13.10 i [place] of [place]2.[place] [phone] Ga dical nal [address] [place] [address] 2019-08-04 2019-08-04 Outpatient R ALEXANDRIA WHITMORE [facility] [id number] Univers 13:30:00 13:30:00 ity of 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 10 it[place] of [place] [phone] [facility] 353 [facility] 2019-06-16 2019-06-16 Outpatient R DRE [facility] [id number] Univers 11:15:00 11:15:00 ALENA antoine [facility] 2019-06-16 2019-06-16 Orders Doctor PATITO 1.2.840.114 [id number] Univers 00:00:00 00:00:00 Only Unassigned, JACQUE 350.1.13.10 ity of [place] [facility] 4.2.7.2.686 Tawanda as [phone] [address] 2019-06-16 2019-06-16 Telephone Dre [facility] 1.2.695.780 [id number] Univers 00:00:00 00:00:00 Alena Rivera 350.1.13.10 it[place] of [place] [phone] [facility] nal 225 [facility] 2019-06-15 2019-06-15 Outpatient R HERMELINDO [facility] [id number] Univers 10:45:00 10:45:00 KORI antoine [facility] 2019-06-15 2019-06-15 Telemedici Hermelindo [facility] 1.2.840.114 [id number] Univers 08:26:10 08:56:10 ne Visit Kori Rivera 350.1.13.10 it[place] of [place] [phone] [facility] 2019-06-09 2019-06-09 Outpatient R HERMELINDO [facility] [id number] Univers 08:45:00 08:45:00 KORI [facility] 2019-06-02 2019-06-02 Outpatient R HERMELINDO [facility] [id number] Univers 15:45:00 [facility]:45:[facility] 2019-05-[facility] 2019-05-31 Outpatient R [facility] [id number] Univers 13:45:00 13:45:00 ity [facility] 2019-05-23 2019-05-23 [facility] 1.2.840.114 [id number] Univers 14:21:31 16:27:38 Visit Alena Rivera 350.1.13.10 it[place] of [place] [phone] [facility] [address] [facility] 2019-05-23 2019-05-23 Outpatient R DRE [facility] [id number] Univers 14:30:00 14:30:00 ALENA antoine [facility] 2019-05-23 2019-05-23 Letter Dre [facility] 1.2.840.114 [id number] Univers 00:00:00 00:00:00 (Out) Alena Rivera 350.1.13.10 it[place] [phone] [address] 2019-05-16 2019-05-16 Nurse Nurse, [facility] 1.2.840.114 [id number] Univers 15:19:14 15:52:21 Visit Alexandria Whitmore 350.1.13.10 it[place] of [place] [phone] Ga dical [address] 2019-05-16 2019-05-16 Outpatient R ALEXANDRIA WHITMORE [facility] [id number] Univers 15:30:00 15:30:00 ity [facility] 2019-05-03 2019-05-03 Office Urology, Cl[facility] Bl[facility] Ped[facility] 1.2. 840.114 [id number] Univers 13:12:12 14:43:58 Visit Demetrius Morgan 350.1.13.1 0 [place] of [place] [phone] [address] Office Building 2019-05-03 2019-05-03 Orders Doctor PATITO 1.2.840.114 [id number] Univers 00:00:00 00:00:00 Only Unassigned, JACQUE 350.1.13.10 ity of [place] [facility] 4.2.7.2.686 Tawanda as [phone] [address] 2019-05-03 2019-05-03 Letter Urology, [facility] 1.2.840.114 [id number] Univers 00:00:00 00:00:00 (Out) [facility] 350.1.13.10 it y of [place] [phone] [address] Office Building 2019-03-22 2019-03-22 Office Urology, Sapna Pedi [facility] 1.2.840. 114 [id number] [facility] 14:44:34 16:20:55 Visit Demetrius Morgan [facility] 350.1.13 .10 [place] of [place].2.[place] [phone] [address] 2018-12-01 2018-12-01 Telephone Guerrero [facility] 1.2.840.114 [id number] Univers 00:00:00 00:00:00 Apryl Rivera 350.1.13.10 i [place] [phone] [address] 2018-11-30 2018-11-30 Telephone Cesar [facility] 1.2.840.114 [id number] Univers 00:00:00 00:00:00 Apryl Rivera 350.1.13.10 i ty [place] [phone] [address] 2018-11-12 2018-11-12 Office Cesar [facility] 1.2.840.114 [id number] Univers 07:59:52 08:43:27 Visit Apryl Rivera 350.1.13.10 i [place] [phone] [address] 2018-11-12 2018-11-12 Letter Cesar [facility] 1.2.840.114 [id number] Univers 00:00:00 00:00:00 (Out) Apryl Rivera 350.1.13.10 i ty [place] [phone] [address] 2018-11-11 2018-11-11 Nurse Nurse, [facility] 1.2.840.114 [id number] [facility] 08:24:16 08:54:22 Visit Alexandria Whitmoer 350.1.13.10 ity of [place] [phone] [facility] 134 [facility] 2018-11-11 2018-11-11 Orders Doctor PATITO 1.2.840.114 [id number] Univers 00:00:00 00:00:00 Only Unassigned, JACQUE 350.1.13.10 ity of [place] [facility]ITAL 4.2.7.2.686 Tawanda as [phone] [address] 2018-10-07 2018-10-07 Office Catracho Tamayo [facility] 1.2.840.1 [id number] Univers 14:49:05 16:35:54 Visit Alena Erickson 350.1.13. 10 it[place] of [place] [phone] [facility] Results Test Description Test Time Test Comments Results Result Comments Source POCT URINALYSIS W/O SPECIFIC GRAVITY 2022-05-27 20:36:00 Test Item Value Reference Range Interpretation Comme nts POCT PH U (test code = 3254) 5 mg/dl 5-8 POCT U LEUK EST (test code = 3263) trace Negative - Negative POCT U NIT (test code = 3262) negative Negative - Negative POCT U PROT (test code = 3259) negative Negative - Negative POCT U GLU (test code = 3256) negative Negative - Negative POCT U KETONE (test code = 3258) negative Negative - Negative POCT U BLD (test code = 3257) negative Negative - Negative [facility] URINALYSIS W/O SPECIFIC [id number] 20:36:00 Test Item Value Reference Range Interpretation Comments POCT PH U (test code = 3254) 5 mg/dl 5-8 POCT U LEUK EST (test code = trace Negative - Negative 3263) POCT U NIT (test code = 3262) negative Negative - Negative POCT U PROT (test code = 3259) negative Negative - Negative POCT U GLU (test code = 3256) negative Negative - Negative POCT U KETONE (test code = 3258) negative Negative - Negative POCT U BLD (test code = 3257) negative Negative - Negative [facility] [id number] 15:01:00 Test Item Value Reference Range Interpretation Comments POCT PREG (test code = 1605) Negative On board controls acceptable with C Yes Line (test code = 3574) POCT PREG LOT # (test code = 3575) POCT PREG TEST DATE (test code = 3576) [facility] [id number] 15:01:00 Test Item Value Reference Range Interpretation Comments POCT PREG (test code = 1605) Negative On board controls acceptable with C Yes Line (test code = 3574) POCT PREG LOT # (test code = 3575) POCT PREG TEST DATE (test code = 3576) [id number] 15:01:00 Test Item Value Reference Range Interpretation Comments POCT PREG (test code = 1605) Negative On board controls acceptable with C Yes Line (test code = 3574) POCT PREG LOT # (test code = 3575) POCT PREG TEST DATE (test code = 3576) [facility] 02:46:43 Test Item Value Reference Range Interpretation Comments ALCOHOL (test code = <10 mg/dL 5667122942) HAZEL (test code = HAZEL) <10 Ycehmxfz31-253 Toxic>100 Depression of WEB DEVELOPMENT INSTRUCTOR>400 Fatalities Reported [facility] [id number] 02:44:00 Test Item Value Reference Range Interpretation Comments POCT PREG (test code = 1605) negative On board controls acceptable with present C Line (test code = 3574) POCT PREG LOT # (test code = 3575) [id number] POCT PREG TEST DATE (test 2022-04-22 code = 3576) Lab Interpretation (test code = Normal 22700-0) [facility]. METABOLIC PANEL (82480)2021-01-06 02:40:21 Test Item Value Reference Range Interpretation Comments NA (test code = 139 mmol/L 135-145 2419525457) K (test code = 3.8 mmol/L 3.5-5.0 5795673958) CL (test code = 114 mmol/L 98-108 H 7401928952) CO2 TOTAL (test code = 20 mmol/L 23-31 L 8173586529) AGAP (test code = 2-16 7095685688) BUN (test code = 13 mg/dL 7-23 5265523289) GLUCOSE (test code = 86 mg/dL 70-110 3750492801) CREATININE (test code = 0.53 mg/dL 0.50-1.04 0147068556) TOTAL BILI (test code = 0.4 mg/dL 0.1-1.5 6565250659) CALCIUM (test code = 7.8 mg/dL 8.6-10.6 L 7305869808) T PROTEIN (test code = 5.6 g/dL 6.3-8.2 L 7693935463) ALBUMIN (test code = 3.1 g/dL 3.5-5.0 L 2744756972) ALK PHOS (test code = 36 U/L 34-122 4618032082) ALTv (test code = 14 U/L 5-35 1742-6) AST(SGOT) (test code = 26 U/L 13-40 9125987653) eGFR (test code = mL/min/1.73m2 0260352297) HAZEL (test code = HAZEL) Association of [...] tests). Lab Interpretation Abnormal (test code = 58065-5) [facility] Whole [id number] 02:30:07 Test Item Value Reference Range Interpretation Comments LACTIC ACID (test code = 1.53 mmol/L 0.50-2.20 6666781515) Lab Interpretation (test code = Normal 46888-9) [facility] WITH [id number] 02:20:01 Test Item Value Reference Range Interpretation Comments WBC (test code = See_Comment [Automated 0119-2) message] The sy stem which generated this result transmitted reference range : 4.50 - 13.50 10*3/?L. The reference range was not used to interpret this result as normal/abnormal . RBC (test code = See_Comment [Automated 223-8) message] The sy stem which generated this [...] RDW-SD (test code = 45.0 fL 38.5-49.0 29375-8) RDW-CV (test code = 14.8 % 11.5-14.0 H 788-0) PLT (test code = See_Comment [Automated 777-3) message] The sy stem which generated this result transmitted reference range : 135 - 361 10*3/ ?L. The reference r ilsa was not used to interpret this result as normal/abnormal . MPV (test code = 10.5 fL 9.4-13.3 68017-7) NRBC/100 WBC (test See_Comment [Automat ed code = 9512344055) message] The system which generated this result transmitted reference range : 0.0 - 10.0 /100 WBCs. The refer ence range was not u sed to interpret th is result as normal/abnormal . NRBC x10^3 (test code <0.01 See_Comment [Auto mated = 0964234874) message] The s ystem which generated this result transmitted reference range : 10*3/?L. The reference range was not used to interpret this result as normal/abnormal . GRAN MAT (NEUT) % 45.6 % (test code = 770-8) IMM GRAN % (test code 0.20 % = 5591212047) LYMPH % (test code = 42.0 % 736-9) MONO % (test code = 9.9 % 5905-5) EOS % (test code = 2.1 % 713-8) BASO % (test code = 0.2 % 706-2) GRAN MAT x10^3(ANC) 3.68 10*3/uL 1.50-10.30 (test code = 8214981406) IMM GRAN x10^3 (test <0.03 0.00-0.06 code = 2008778353) LYMPH x10^3 (test code 3.39 10*3/uL 0.70-7.40 = 731-0) MONO x10^3 (test code 0.80 10*3/uL 0.00-0.50 H = 742-7) EOS x10^3 (test code = 0.17 10*3/uL 0.00-0.40 711-2) BASO x10^3 (test code <0.03 0.00-0.10 = 704-7) Lab Interpretation Abnormal (test code = 56138-0) [facility] RAPID STREP SCREEN FOR GROUP [id number] 19:24:00 Test Item Value Reference Range Interpretation Comments POCT GP A STREP (test code = negative Negative - Negative 09614-5) [facility] RAPID STREP SCREEN FOR GROUP [id number] 19:24:00 Test Item Value Reference Range Interpretation Comments POCT GP A STREP (test code = negative Negative - Negative 04802-0) [facility] [id number] 00:00:00 Test Item Value Reference Range Interpretation Comments IMP (test code = Electroencephalogram IMP) Report NAME: Romy BernsteinAGE: 19 Year(s) 6 Month(s)DATE OF EE10/12/2019PROCEDURE: ?EEG ? ? EEG#: [id number] PHYSICIAN: Dalia Arreguin MDLOCATION: ?[facility] [place] DIAGNOSIS: Seizure vs PNESPERTINENT MEDICATIONS: ?N/A [...] 44m39s Lab Interpretation Normal (test code = 06297-4) [facility] ULTR[facility]OUND BREAST LIMITED [id number] 13:32:53HISTORY: 2 palpable masses in the left [...] patient and hermother. ACR classification: Category II. Comb, Radiant Results Inft User - 08/16/2019 8:34 [...] with the patient and hermother.ACR classification: Category II.[facility] W/O SPECIFIC GRAVITY 2019-08-04 19:35:00 Test [...] code = 3257) 4+ Negative - Negative [facility] URINALYSIS W/O SPECIFIC [id number] 19:35:00 Test Item Value Reference Range Interpretation [...] code = 3257) 4+ Negative - Negative [facility] [id number] 18:57:00 Test Item Value Reference Range Interpretation Comments POCT PREG (test code = 1605) Negative On board controls acceptable with C Yes Line (test code = 3574) POCT PREG LOT # (test code = 3575) POCT PREG TEST DATE (test code = 3576) [facility] [id number] 18:57:00 Test Item Value Reference Range Interpretation Comments POCT PREG (test code = 1605) Negative On board controls acceptable with C Yes Line (test code = 3574) POCT PREG LOT # (test code = 3575) POCT PREG TEST DATE (test code = 3576) [facility] [id number] 22:13:00 Test Item Value Reference Range Interpretation Comments URINE CULTURE (test > 100,000 CFU/mL mixed code = 630-4) aerobic organisms - suggests endogenous microbial contamination [facility] [id number] 22:13:00 Test Item Value Reference Range Interpretation Comments URINE CULTURE (test > 100,000 CFU/mL mixed code = 630-4) aerobic organisms - suggests endogenous microbial contamination [facility]
[2022-08-07 20:28] LABS: Absolute Lymphocytes (CBC) 1.8 K/uL (0.7-4.9); Hematocrit 41.1 % (36.0-45.0); Lymphocytes % 12.8 % (15.3-44.8); MCV 84.6 fL (80-100); MPV 7.1 fL (7.6-11.3); RBC Red Blood Cell Count 4.86 M/uL (3.86-4.86)
[2022-08-07 20:53] LABS: ALT/SGPT 28 U/L (13-56); AST/SGOT 13 U/L (15-37); Albumin 3.7 g/dL (3.4-5.0); Alkaline Phosphatase 69 U/L (45-117); BUN Blood Urea Nitrogen 7 mg/dL (7-18); Bicarbonate 25 mEq/L (21-32); Bilirubin Total 0.6 mg/dL (0.2-1.0); Glomerular Filtration Rate 123 ml/min (=/>90); Glucose Level 98 mg/dL (74-106); Magnesium 1.9 mg/dL (1.6-2.4); Potassium 3.3 mEq/L (3.5-5.1); Protein, Total 7.3 g/dL (6.4-8.2); Sodium Level 134 mEq/L (136-145)
[2022-08-07 21:04] LABS: Urine Bacteria None Seen /HPF (<20); Urine Bilirubin NEGATIVE (Negative); Urine Blood Negative (Negative); Urine Clarity Clear (Clear); Urine Color Light-Yellow (Yellow); Urine Glucose NEGATIVE (Negative); Urine Mucus Slight /HPF (None Seen); Urine Protein NEGATIVE (Negative); Urine RBC <5 /HPF (None Seen); Urine Urobilinogen Normal (Normal)
[2022-08-07 21:14] LABS: Bilirubin Direct < 0.1 mg/dL (0-0.2); Bilirubin Indirect, Calculated ND mg/dL (0.2-0.8)
[2022-08-07] MEDS ORDERED: KETOROLAC 30 MG/ML INJ ONE (22:23)
[2022-08-07] MEDS ORDERED: NA CHLORIDE 0.9% 1,000 ML ONE (22:23)
--- NOTE | 2022-08-07 22:51 | RAD REPORT ---
[facility] 8[facility]43 pm CLINICAL HISTORY: back pain COMPARISON: Chest Single View dated 11/02/2021; Chest Single View dated 02/24/2017 TECHNIQUE: Portable AP view of the chest. FINDINGS: The lungs are clear. No pneumothorax or effusion. The cardiomediastinal contours are unrem arkable. IMPRESSION: No acute cardiopulmonary process.
--- NOTE | 2022-08-07 23:55 | ER ---
Nurse's Notes [facility] Name: Romy Bernstein Age: 22 yrs Sex: Female : 2000 Arrival Date: 08/07/2022 Time: 19:26 Bed 20 Private MD: Diagnosis: Cervicalgia;Dorsalgia, unspecified;Headache Presentation: 08/07 19:36 Chief complaint: Patient states: Back pain with headaches x 3 days with dizziness; vg1 denies N/V, falls or injury. Coronavirus screen: Vaccine status: Patient reports receiving the 2nd dose of the covid vaccine. Client denies travel out of the [place] in the last 14 days. Ebola Screen: Patient negative for fever greater than or equal to 101.5 degrees Fahrenheit, and additional compatible Ebola Virus Disease symptoms Patient denies exposure to infectious person. Patient denies travel to an Ebola-affected area in the 21 days before illness onset. Initial Sepsis Screen: Does the patient meet any 2 criteria? HR > 90 bpm. Does the patient have a suspected source of infection? No. Patient's initial sepsis screen is negative. Risk Assessment: Do you want to hurt yourself or someone else? Patient reports no desire to harm self or others. Onset of symptoms was August 04, 2022. 19:36 Method Of Arrival: Ambulatory [facility] 19:36 Acuity: SERA 3 vg1 Triage Assessment: 19:38 General: Appears uncomfortable, Behavior is cooperative. Pain: Complains of pain in vg1 back Pain currently is 7 out of 10 on a pain scale. Neuro: Level of Consciousness is awake, alert, obeys commands, Oriented to person, place, time, situation, Reports dizziness, headache. : Denies burning with urination, pain. 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 - Social history:: Smoking status: Patient denies any tobacco usage or history of. Screenin:48 [facility] ED Fall Risk Assessment (Adult) History of falling in the last 3 months, lg3 including since admission No falls in past 3 months (0 pts). Abuse screen: Denies threats or abuse. Denies injuries from another. Nutritional screening: No deficits noted. Tuberculosis screening: No symptoms or risk factors identified. Assessment: 19:48 General: Appears in no apparent distress. comfortable, Behavior is calm, cooperative. lg3 Pain: Complains of pain in head and back. Neuro: No deficits noted. Alexis Agitation-Sedation Scale (RASS): 0 - Alert and Calm Level of Consciousness is awake, alert, obeys commands, Oriented to person, place, time, situation. Cardiovascular: No deficits noted. Denies chest pain, shortness of breath, Capillary refill < 3 seconds Clubbing of nail beds is absent JVD is absent Patient's skin is warm and dry. Respiratory: No deficits noted. Airway is patent Respiratory effort is even, unlabored, Respiratory pattern is regular, symmetrical. GI: No deficits noted. No signs and/or symptoms were reported involving the gastrointestinal system. Abdomen is round non-distended. : No deficits noted. No signs and/or symptoms were reported regarding the genitourinary system. EENT: No deficits noted. No signs and/or symptoms were reported regarding the EENT system. Derm: No deficits noted. No signs and/or symptoms reported regarding the dermatologic system. Skin is intact, is healthy with good turgor, Skin is dry, Skin is normal, Skin temperature is warm. Musculoskeletal: No deficits noted. Circulation, motion, and sensation intact. Range of motion: intact in all extremities, Reports pain in back of neck and back. 21:49 Reassessment: Patient appears in no apparent distress at this time. No changes from lg3 previously documented assessment. Patient and/or family updated on plan of care and expected duration. Pain level reassessed. Patient is alert, oriented x 3, equal unlabored respirations, skin warm/dry/pink. 23:07 Reassessment: Patient appears in no apparent distress at this time. No changes from lg3 previously documented assessment. Patient and/or family updated on plan of care and expected duration. Pain level reassessed. Patient is alert, oriented x 3, equal unlabored respirations, skin warm/dry/pink. Patient states feeling better. Vital Signs: 19:36 BP 129 / 83; Pulse 100; Resp 16; Temp 98.9; Pulse Ox 100% on R/A; Weight 78.02 kg; vg1 Height 5 ft. 3 in. ; Pain 7/10; 20:48 BP 128 / 85; Pulse 101; Resp 17 S; Pulse Ox 100% on R/A; lg3 22:22 BP 124 / 81; Pulse 91; Resp 18 S; Pulse Ox 100% on R/A; lg3 19:36 Body Mass Index 30.47 (78.02 kg, 160.02 cm) vg1 19:36 Pain Scale: Adult vg1 ED Course: 19:32 Patient arrived in ED. jj6 19:38 Triage completed. vg1 19:38 Arm band placed on. vg1 19:41 Bari Bazzi PA is PHCP. cp 19:41 Bari Ceron MD is Attending Physician. cp 19:48 Patient has correct armband on for positive identification. Placed in gown. Bed in low lg3 position. Call light in reach. Side rails up X 1. Client placed on continuous cardiac and pulse oximetry monitoring. NIBP monitoring applied. monitoring and evaluation advisor on. Door closed. Noise minimized. Warm blanket given. 19:48 Inserted saline lock: 20 gauge in right antecubital area, using aseptic technique. lg3 Blood collected. 19:49 Marisela Preciado, RN is Primary Nurse. lg3 20:45 XRAY Chest (1 view) In Process Unspecified. EDMS 22:48 CT Chest For PE Angio In Process Unspecified. EDMS 08/08 00:16 No provider procedures requiring assistance completed. IV discontinued, intact, jb4 bleeding controlled, No redness/swelling at site. Pressure dressing applied. Administered Medications: 08/07 22:22 Drug: NS 0.9% IV 1000 ml Route: IV; Rate: 1 bolus; Site: right antecubital; lg3 22:22 Drug: Ketorolac IVP 15 mg Route: IVP; Site: right antecubital; lg3 Outcome: 23:54 Discharge ordered by . cp 08/08 00:16 Discharged to home ambulatory. jb4 Condition: stable Discharge instructions given to patient, Instructed on discharge instructions, follow up and referral plans. no drinking with medication, no driving heavy equipment, medication usage, Demonstrated understanding of instructions, follow-up care, medications, Prescriptions given X 2. 00:16 Patient left the ED. jb4 Signatures: Dispatcher [employer] EDMS Bari Bazzi PA PA cp Bryson, James RN RN jb4 Marisela Preciado RN RN lg3 Flor Doran RN RN vg1 Cherri Treadwell jj6
--- NOTE | 2022-08-07 23:55 | EDPHYS ---
Physician Documentation [facility] Name: Romy Bernstein Age: 22 yrs Sex: Female : 2000 Arrival Date: 08/07/2022 Time: 19:26 Bed 20 Private MD: ED Physician Bari Ceron HPI: 08/07 20:15 This 22 yrs old Female presents to ER via Ambulatory with complaints of Neck cp and Upper Back Pain, Low Back Pain, Headache. 20:15 The patient presents with pain that is acute, with no known mechanism of injury. cp 20:15 The symptoms are located in the mid back with radiating pain to upper back, neck, low cp back. Patient c/o headache due to back pain. Pain worse with deep breaths. Onset: The symptoms/episode began/occurred 3 day(s) ago. Associated signs and symptoms: Pertinent negatives: abdominal pain, chest pain, constipation, fever, incontinence, numbness, weakness. Severity of symptoms: in the emergency department the symptoms are unchanged, despite home interventions. 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 - Social history:: Smoking status: Patient denies any tobacco usage or history of. ROS: 20:20 Constitutional: Negative for body aches, chills, fever, poor PO intake. cp 20:20 Eyes: Negative for injury, pain, redness, and discharge. cp 20:20 ENT: Negative for drainage from ear(s), ear pain, sore throat, difficulty swallowing, difficulty handling secretions. 20:20 Cardiovascular: Negative for chest pain, edema, palpitations. 20:20 Respiratory: Negative for cough, wheezing. 20:20 Abdomen/GI: Negative for abdominal pain, vomiting, diarrhea, constipation. 20:20 Back: Positive for pain at rest, pain with movement. 20:20 : Negative for urinary symptoms. 20:20 MS/extremity: Negative for injury or acute deformity, paresthesias. 20:20 Neuro: Positive for headache, Negative for altered mental status, syncope, weakness. 20:20 All other systems are negative. Exam: 20:25 Constitutional: The patient appears in no acute distress, alert, awake, cp non-diaphoretic, non-toxic, well developed, well nourished, uncomfortable. 20:25 Head/Face: Normocephalic, atraumatic. cp 20:25 Eyes: Periorbital structures: appear normal, Conjunctiva: normal, no exudate, no injection, Sclera: no appreciated abnormality, Lids and lashes: appear normal, bilaterally. 20:25 ENT: External ear(s): are unremarkable, Nose: is normal, Mouth: Lips: moist, Oral mucosa: pink and intact, moist, Posterior pharynx: is normal, airway is patent, no erythema, no exudate. 20:25 Neck: ROM/movement: limited range of motion, is not appreciated, Meningeal signs: are not present, nuchal rigidity, is not appreciated. 20:25 Chest/axilla: Inspection: normal. 20:25 Cardiovascular: Rate: tachycardic, Rhythm: regular. 20:25 Respiratory: the patient does not display signs of respiratory distress, Respirations: normal, no use of accessory muscles, no retractions, labored breathing, is not present, Breath sounds: are clear throughout, no decreased breath sounds, no stridor, no wheezing. 20:25 Abdomen/GI: Inspection: abdomen appears normal, Palpation: abdomen is soft and non-tender, in all quadrants. 20:25 Back: pain, that is moderate, of the left trapezius, right trapezius, left scapular area, right scapular area, left subscapular area, right subscapular area, low back area and mid back area, ROM is painful, with all movement. 20:25 Skin: cellulitis, is not appreciated, no rash present. 20:25 Neuro: Orientation: to person, place \\T\\ time. Mentation: is normal, Motor: moves all fours, strength is normal, Sensation: is normal. 20:34 ECG was reviewed by the Attending Physician. cp Vital Signs: 19:36 BP 129 / 83; Pulse 100; Resp 16; Temp 98.9; Pulse Ox 100% on R/A; Weight 78.02 kg; vg1 Height 5 ft. 3 in. ; Pain 7/10; 20:48 BP 128 / 85; Pulse 101; Resp 17 S; Pulse Ox 100% on R/A; lg3 22:22 BP 124 / 81; Pulse 91; Resp 18 S; Pulse Ox 100% on R/A; lg3 19:36 Body Mass Index 30.47 (78.02 kg, 160.02 cm) vg1 19:36 Pain Scale: Adult vg1 MDM: 19:41 Patient medically screened. cp 21:00 Differential diagnosis: Cervical Disc Herniation Pyelonephritis ruptured disc, spinal cp injury, Ureterolithiasis cervical strain, muscle strain, pulmonary embolism, pneumonia. 23:53 Data reviewed: vital signs, nurses notes, lab test result(s), EKG, radiologic studies, cp CT scan, plain films. 23:53 Consideration of Admission/Observation Escalation of care including cp admission/observation considered. I considered the following discharge prescriptions or medication management in the emergency department Medications were administered in the Emergency Department. See MAR. Independent interpretation of the following test(s) in the Emergency Department EKG: See my EKG interpretation above X-Ray: My interpretation is chest image negative for infiltrates. Counseling: I had a detailed discussion with the patient and/or guardian regarding: the historical points, exam findings, and any diagnostic results supporting the discharge/admit diagnosis, lab results, radiology results, to return to the emergency department if symptoms worsen or persist or if there are any questions or concerns that arise at home. Response to treatment: the patient's symptoms have markedly improved after treatment, and as a result, I will discharge patient. 08/07 20:11 Order name: Basic Metabolic Panel; Complete Time: 21:20 cp 08/07 21:21 Interpretation: Normal except: NA 134; K 3.3. cp 08/07 20:11 Order name: CBC with Diff; Complete Time: 21:20 cp 08/07 21:21 Interpretation: Normal except: WBC 14.00; MPV 7.1; JES% 78.0; LYM% 12.8; NEUT A 10.9. cp 08/07 20:11 Order name: D-Dimer; Complete Time: 21:20 cp 08/07 21:21 Interpretation: Abnormal: D-DIMER 533. cp 08/07 20:11 Order name: LFT's; Complete Time: 21:20 cp 08/07 23:50 Interpretation: Normal except: AST 13. cp 08/07 20:11 Order name: Magnesium; Complete Time: 21:20 cp 08/07 20:11 Order name: Urinalysis W/Microscopic; Complete Time: 21:20 cp 08/07 20:11 Order name: PREGU; Complete Time: 21:20 cp 08/07 20:11 Order name: XRAY Chest (1 view); Complete Time: 23:49 cp 08/07 23:49 Interpretation: Report review. cp 08/07 21:22 Order name: CT Chest For PE Angio cp 08/07 20:11 Order name: EKG; Complete Time: 20:12 cp 08/07 20:11 Order name: Cardiac monitoring; Complete Time: 20:31 cp 08/07 20:11 Order name: EKG - Nurse/Tech; Complete Time: 20:31 cp 08/07 20:11 Order name: IV Saline Lock; Complete Time: 20:31 cp 08/07 20:11 Order name: Labs collected and sent; Complete Time: 20:31 cp 08/07 20:11 Order name: O2 Per Protocol; Complete Time: 20:31 cp 08/07 20:11 Order name: O2 Sat Monitoring; Complete Time: 20:31 cp EC:34 Rate is 98 beats/min. Rhythm is regular. [place] interval is normal. QRS interval is normal. cp QT interval is normal. T waves are Inverted in lead aVR. Interpreted by me. Reviewed by me. Administered Medications: 22:22 Drug: NS 0.9% IV 1000 ml Route: IV; Rate: 1 bolus; Site: right antecubital; lg3 22:22 Drug: Ketorolac IVP 15 mg Route: IVP; Site: right antecubital; lg3 Disposition Summary: 08/07/22 23:54 Discharge Ordered Location: Home cp Problem: new cp Symptoms: have improved cp Condition: Stable cp Diagnosis - Cervicalgia cp - Dorsalgia, unspecified cp - Headache cp Followup: cp - With: Private Physician - When: 1 - 2 days - Reason: Recheck today's complaints Discharge Instructions: - Discharge Summary Sheet cp - Acute Back Pain, Adult cp - General Headache Without Cause cp - Musculoskeletal Pain cp Forms: - Medication Reconciliation Form cp - Thank You Letter cp - Antibiotic Education cp - Prescription Opioid Use cp Prescriptions: - Cyclobenzaprine 10 mg Oral Tablet - take 1 tablet by ORAL route every 8 hours As needed; 30 tablet; Refills: 0, cp Product Selection Permitted - Diclofenac Sodium 75 mg Oral Tablet Sustained Release - take 1 tablet by ORAL route 2 times per day; 30 tablet; Refills: 0, Product cp Selection Permitted Signatures: Dispatcher [employer] Bari Manriquez PA PA cp Gibson, Lacie, RN RN lg3 Flor Doran RN RN vg1
[2022-08-08 00:43] VITALS: TEMP 98.9; O2SAT 100
[2022-08-08 00:45] VITALS: BP 124/81
--- NOTE | 2022-08-08 14:48 | RAD REPORT ---
EXAM DESCRIPTION: CT - Chest For Pe Angio - 08/08/2022 12:22 am CLINICAL HISTORY: 24-year-old female with back pain. COMPARISON: None. TECHNIQUE: CT angiography of the pulmonary arteries was performed following intravenous administrati on of contrast. Coronal and bilateral oblique maximum intensity projections (MIPS) were created. This exam was performed according to our departmental dose optimization program which includes use of aut omated exposure control, adjustment of the mA and/or kV according to patient size and/or use of itera tive reconstruction technique. FINDINGS: Chest: Evaluation through the lungs reveals no focal opacity, pleural effusion or pneumothorax. There is min imal dependent basilar atelectasis and scarring. The tracheobronchial airways are patent. No signific ant mediastinal or axillary lymphadenopathy by CT measurement criteria. Limited evaluation of the upper abdomen shows no acute intra-abdominal abnormalities. The osseous structures are within normal limits. CT angiography: Diagnostic CT angiography of the pulmonary arteries without intraluminal filling defe ct noted to suggest pulmonary arterial embolus. IMPRESSION: 1. Diagnostic pulmonary angiography without findings to suggest pulmonary arterial embol us. 2. The lungs are clear without focal opacity, pleural effusion or pneumothorax. 3. No specific findings are noted to suggest etiology of the patient's chest pain and shortness of br eath. Electronically signed by: Meera Bains MD 08/07/2022 11:28 PM CDT Due to temporary technical issues with the PACS/Fluency reporting system, reports are being signed by the in house radiologists without review as a courtesy to insure prompt reporting. The interpreting radiologist is fully responsible for the content of the report.
--- NOTE | 2022-08-10 17:37 | EKG ---
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
== END 2022-08-08 00:16 | disposition home or self-care (01) ==
LOC: ER 19:26
DX: M54.2 Cervicalgia (principal); M54.9 Dorsalgia, unspecified; R51.9 Headache, unspecified; Z88.8 Allergy status to other drugs, medicaments and biological substances
CPT/HCPCS: 93005; 85025; 81001; 80048; 36415; 83735; 81025; 85379; 80076; 71275; 71045; 96374; 99285; Q9967; J7030

== ENCOUNTER 2022-08-21 10:04 | Emergency (ER) | payer OTHER ==
--- OUTSIDE RECORDS SUMMARY | 2022-08-21 10:25 | XMS REPORT | Continuity of Care Document ---
:2000 Author Organization [facility] t Address [address] [facility] [address] [place] [address] Care Team Providers Name Role Phone Pcp, Patient Does Not Have A Primary Care Physician [phone] ROLAN CASAREZ Attending Clinician Unavailable ALEXANDRIA WHITMORE Attending Clinician Unavailable MANNY CARMEN Attending Clinician Unavailable Manny Marley Attending Clinician Unknown, Attending Attending Clinician Unavailable Rolan Casarez PA-C Attending Clinician Doctor Unassigned, [address] Attending Clinician Unavailable BROOKLYN GARDUNO Attending Clinician Unavailable Brooklyn Garduno MD Attending Clinician GREGORIO DELCID Attending Clinician Unavailable Lui Carlton Attending Clinician Unavailable HAYLEY CASTILLO Attending Clinician Unavailable 2, [facility] Attending Clinician Unavailable KAREN TAMAYO Attending Clinician Unavailable Alena Erickson MD Attending Clinician Roma Adame NP Attending Clinician EMELY CANALES Attending Clinician Unavailable Chinmay Aly DO Attending Clinician Alexandria Whitmore MD Attending Clinician Nurse, Tony Quevedo Attending Clinician Unavailable ALENA ERICKSON Attending Clinician Unavailable Karen Robledo Attending Clinician Dalia Arreguin MD Attending Clinician Eeg, Sapna Quevedo Neuro Attending Clinician Unavailable DALIA ARREGUIN Attending Clinician Unavailable Nurse, [facility] Attending Clinician Unavailable Urology, Clc Bls Pedi Attending Clinician Unavailable Eddie FULLER, Demetrius Attending Clinician Urology, Sapna Lazarusi Attending Clinician Unavailable Apryl Guerrero MD Attending Clinician ROLAN CASAREZ Admitting Clinician Unavailable ALEXANDRIA WHITMORE Admitting Clinician Unavailable Payers Payer Name Policy Type Policy Number Effective Date Expiration Date S [facility] [id number] 2016 [facility] MEDICAID 00:00:00 [facility] [id number] 2022 00:00:00 BCBS [facility] [id number] 2022 00:00:00 MEDICAID [facility] [id number] 2021 2022 00:00:00 00:00:00 Problems Condition Condition Condition Status Onset Resolution Last Treating Co mments Source Name Details Category Date Date Treatment Clinician Date Nexplanon Nexplanon Disease Active Uni vers in place in place 5-14 ity of 00:00: [place] 00 Medical Branch Burning Burning Disease Active 2020- Univers with with 5-14 ity of urination urination 00:00: [facility] s 00 Medical Branch Chronic Chronic Disease Active Univers nonintract nonintract 3-13 it y of able able 00:00: [place] headache, headache, 00 Medi milagros unspecifie unspecifie Br anch d headache d headache type type Obesity Obesity Disease Active Univers peds (BMI peds (BMI 7-19 ity of >=95 >=95 00:00: [place] percentile percentile 00 Me dical ) ) [...] and CT head were done in March unremark ble. 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 Br anch disorder disorder Weight Weight Disease Active Univers gain gain 7-18 ity of 00:00: [place] 00 [facility] Migraine Migraine Disease Active Unive rs without without 1-08 ity of aura and aura and 00:00: [place] without without 00 Medical status status Branch migrainosu migrainosu s, not s, not intractabl intractabl e e Family Family Disease Active 2017-03 Univers history of history of 0-24 it y of breast breast 00:00: [place] cancer cancer 00 [facility] Depo-Prove Depo-Prove Disease Active 2017-03 U nivers ra ra 0-24 [place] thea status 00 Me dical Branch 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 0-24 it[place] of in female [place] [facility] Asthma Asthma Disease Active Univers ity of [facility] Allergic Allergic Disease Active Unive rs rhinitis rhinitis ity of [facility] Family Family Disease Active Univers history of history of it y of familial familial [place] hyperchole hyperchole Me dical sterolemia sterolemia Br anch Allergies, Adverse Reactions, Alerts Allergy Allergy Status Severity Reaction(s) Onset Inactive Treating Comm ents Source Name Type Date Date Clinician LEVETIRA DRUG Active Other-Cmnt 2021-03 Univ ers CETAM INGREDI 1-11 ity of 00:00: [place] 00 Medical Branch Levetira Propensi Active Other - See [...] Quantity Comments Source History of Passive smoker University of tobacco use [facility] Exposure to 2022-08-01 2022-08-11 Not sure [facility] SARS-CoV-2 00:00:00 11:13:00 [facility] (event) Branch Alcohol intake 2022-05-27 2022-05-27 Current University of 00:00:00 00:00:00 non-drinker of [facility] alcohol (finding) [place] Tobacco use and 2022-01-02 2022-01-02 Smokeless tobacco Un iversity of exposure 00:00:00 00:00:00 non-user [facility] Sex Assigned At 2000 2002 Universit y of 00:00:00 00:00:00 [facility] Smoking Status Start Date Stop Date Source Never smoked tobacco [facility] Medications Ordered Filled Start Stop Current Ordering Indication Dosage Frequency Signature Comments Components Source Medication Medication Date Date Medication? Clinician (SIG) Name Name ofloxacin 2022- Yes [id number] 5[drp] Place 5 Univers 0.3 % otic 08-11 11014 Drops in ity of drops 00:00: 04:59 right ear [place] 00 :00 in the Medical morning Branch and 5 Drops in the evening. Do all this for 7 days. No known 2021-03 No No known Unive rs medications 1-16 medication it y of 13:07: s [address] No known 2021-03 No No known Unive rs medications 1-16 medication it y of 13:07: s [address] No known 2021-03 No No known Unive rs medications 1-16 medication it y of 13:07: [address] No known 2021-03 No No known Unive rs medications 1-16 medication it y of 13:07: [address] No known 2021-03 No No known Unive rs medications 1-16 medication it y of 13:07: [address] No known 2021-03 No No known Unive rs medications 1-16 medication it y of 13:07: [address] etonogestre 2021-03- No [id number] 68mg Univers L 04-02 ity of (NEXPLANON) 16:15: 15:23 [place] implant 68 00 :00 Medical [facility] etonogestre 2021-03- No [id number] 68mg 68 mg, Univers L 04-02 Subdermal, ity of (NEXPLANON) 16:15: 15:23 ONCE NOW, [place] implant 68 00 :00 1 dose, On Med ical mg [facility] 01/31/22 at 1015, Routine
Use approved by: [employer] etonogestre 2021-03- No [id number] 68mg Univers L 04-0211 ity of (NEXPLANON) 16:15: 15:23 [place] implant 68 00 :00 Medical [facility] etonogestre 2021-03- No [id number] 68mg 68 mg, Univers L 04-02 Subdermal, ity of (NEXPLANON) 16:15: 15:23 ONCE NOW, [place] implant 68 00 :00 1 dose, On Med ical mg [facility] 01/31/22 at 1015, Routine
Use approved by: [employer] etonogestre 2021-03- No [id number] 68mg Univers L 04-0211 ity of (NEXPLANON) 16:15: 15:23 [place] implant 68 00 :00 Medical [facility] etonogestre 2021-03- No [id number] 68mg 68 mg, Univers L 04-0211 Subdermal, ity of (NEXPLANON) 16:15: 15:23 ONCE NOW, [place] implant 68 00 :00 1 dose, On Med ical mg Fri Branch 01/31/22 at 1015, Routine
Use approved by: [employer] No known 2021-03 No No known Unive rs medications 1-11 medication it y of 08:48: [address] No known 2021-03 No No known Unive rs medications 1-11 medication it y of 08:48: [address] No known 2021-03 No No known Unive rs medications 0-13 medication it y of 09:58: [address] No known 2021-03 No No known Unive rs medications 0-13 medication it y of 09:58: [address] No known 2021-03 No No known Unive rs medications 0-13 medication it y of 09:58: [address] No known 2021-03 No No known Unive rs medications 0-13 medication it y of 09:58: [address] calcium 2020-03- No 1000mg 1,000 mg, [...] :00 ONCE, 1 Medical dose, On Branch 10/16/21 at 2200, STEFANIA NaCl 0.9% 2020-03- No 1000mL at 999 Uni vers (NS) bolus 0-17 10-17 mL/hr, ity of infusion 03:00: 04:30 1,000 mL, [place] as 1,000 mL 00 :00 IV Medical Infusion, Branch ONCE, 1 dose, On 01/05/21 at 2200, STEFANIA No known 2020-03 No Univers medications 0-16 ity of 23:25: [address] No known 2020-03 No Univers medications 0-16 ity of 23:25: [address] No known 2020-03 No No known Unive rs medications 0-16 medication it y of 23:25: s [address] ciprofloxac 2020-03- No [id number] 250mg Take 1 Univers in HCl 250 0-16 10-20 tablet by ity of mg tablet 00:00: 04:59 [place] 2 [place] :[place] (two) Medical times Branch daily for 3 days. fluticasone Yes [id number] 1{spray Use 1 Univers propionate 1-11 } [place] in ity o f 50 00:00: each [place] mcg/actuati 00 nostril Medic al on nasal daily. Branch spray fluticasone Yes [id number] 1{spray Use 1 Univers propionate 1-11 } [place] in ity o f 50 00:00: each [place] mcg/actuati 00 nostril Medic al on nasal daily. Branch spray fluticasone 0 Yes [id number] 1{spray Use 1 Univers propionate 1-11 } [place] in ity o f 50 00:00: each [place] mcg/actuati 00 nostril Medic al on nasal daily. Branch spray fluticasone 0 Yes [id number] 1{spray Use 1 Univers propionate 1-11 } [place] in ity o f 50 00:00: each [place] mcg/actuati 00 nostril Medic al on nasal daily. Branch spray fluticasone 2020-0 Yes [id number] 1{spray Use 1 Univers propionate 1-11 } [place] in ity o f 50 00:00: each [place] mcg/actuati 00 nostril Medic al on nasal daily. Branch spray fluticasone 0 Yes [id number] 1{spray Use 1 Univers propionate 1-11 } [place] in ity o f 50 00:00: each [place] mcg/actuati 00 nostril Medic al on nasal daily. Branch spray fluticasone 2020-0 2020- No [id number] 1{spray Use 1 Univers propionate 1-11 10-16 } [place] in ity of 50 00:00: 00:00 each [place] mcg/actuati 00 :00 nostril Medic al on nasal daily. Branch spray ibuprofen 2019-03 Yes [id number] 600mg Take 1 U nivers 600 mg 2-04 tablet by ity of tablet 00:00: mouth [place] 00 every 8 Medical (eight) Branch hours as needed for Pain (scale 4-6) (headache) . cetirizine 2019-03 Yes [id number] 10mg Take 1 U nivers 10 mg 2-04 tablet by ity of tablet 00:00: mouth [place] 00 daily. Medical Branch fluticasone 2019-03 Yes [id number] 1{spray Use 1 Univers propionate 2-04 } [place] in ity o f 50 00:00: each [place] mcg/actuati 00 nostril Medic al on nasal daily. Branch spray ibuprofen 2019-03 Yes [id number] 600mg Take 1 U nivers 600 mg 2-04 tablet by ity of tablet 00:00: mouth [place] 00 every 8 Medical (eight) Branch hours as needed for Pain (scale 4-6) (headache) . cetirizine 2019-03 Yes [id number] 10mg Take 1 U nivers 10 mg 2-04 tablet by ity of tablet 00:00: mouth [place] 00 daily. Medical Branch fluticasone 2019-03 Yes [id number] 1{spray Use 1 Univers propionate 2-04 } [place] in ity o f 50 00:00: each [place] mcg/actuati 00 nostril Medic al on nasal daily. Branch spray cetirizine 2019-03 Yes [id number] 10mg Take 1 U nivers 10 mg 2-04 tablet by ity of tablet 00:00: mouth [place] 00 daily. Medical Branch cetirizine 2019-03 Yes [id number] 10mg Take 1 U nivers 10 mg 2-04 tablet by ity of tablet 00:00: mouth [place] 00 daily. Medical Branch cetirizine 2019-03 Yes [id number] 10mg Take 1 U nivers 10 mg 2-04 tablet by ity of tablet 00:00: mouth [place] 00 daily. Medical Branch cetirizine 2019-03 Yes [id number] 10mg Take 1 U nivers 10 mg 2-04 tablet by ity of tablet 00:00: mouth [place] 00 daily. Medical Branch cetirizine 2019-03 Yes [id number] 10mg Take 1 U nivers 10 mg 2-04 tablet by ity of tablet 00:00: mouth [place] 00 daily. Medical Branch cetirizine 2019-03 Yes [id number] 10mg Take 1 U nivers 10 mg 2-04 tablet by ity of tablet 00:00: mouth [place] 00 daily. Medical Branch cetirizine 2019-03 Yes [id number] 10mg Take 1 U nivers 10 mg 2-04 tablet by ity of tablet 00:00: mouth [place] 00 daily. Medical Branch cetirizine 2019-03 Yes [id number] 10mg Take 1 U nivers 10 mg 2-04 tablet by ity of tablet 00:00: mouth [place] 00 daily. Medical Branch cetirizine 2019-03 Yes [id number] 10mg Take 1 U nivers 10 mg 2-04 tablet by ity of tablet 00:00: mouth [place] 00 daily. Medical Branch cetirizine 2019-03 Yes [id number] 10mg Take 1 U nivers 10 mg 2-04 tablet by ity of tablet 00:00: mouth [place] 00 daily. Medical Branch cetirizine 2019-03 Yes [id number] 10mg Take 1 U nivers 10 mg 2-04 tablet by ity of tablet 00:00: mouth [place] 00 daily. Medical Branch cetirizine 2019-03 Yes [id number] 10mg Take 1 U nivers 10 mg 2-04 tablet by ity of tablet 00:00: mouth [place] 00 daily. Medical Branch cetirizine 2019-03- No [id number] 10mg Take 1 Univers 10 mg 2-04 10-16 tablet by ity of tablet 00:00: 00:00 mouth [place] 00 :00 daily. Medical Branch ibuprofen 2019-03- No [id number] 600mg Take 1 Univers 600 mg 2-04 01-11 tablet by ity of tablet 00:00: 00:00 mouth [place] 00 :00 every 8 Medical (eight) Branch hours as needed for Pain (scale 4-6) (headache) . fluticasone 2019-03- No [id number] 1{spray Use 1 Univers propionate 2-04-02 } [place] in ity of 50 00:00: 00:00 each [place] mcg/actuati 00 :00 nostril Medic al on nasal daily. Branch spray ibuprofen 2019-03- No [id number] 600mg Take 1 Univers 600 mg 2-04 -11 tablet by ity of tablet 00:00: 00:00 mouth [place] 00 :00 every 8 Medical (eight) Branch hours as needed for Pain (scale 4-6) (headache) . fluticasone 2019-03- No [id number] 1{spray Use 1 Univers propionate -04-02 } [place] in ity of 50 00:00: 00:00 each [place] mcg/actuati 00 :00 nostril Medic al on nasal daily. Branch spray fluticasone 2019-03- No [id number] 1{spray Use 1 Univers propionate 04-26 } [place] in ity of 50 00:00: 00:00 each [place] mcg/actuati 00 :00 nostril Medic al on nasal daily. Branch spray ibuprofen 2019-03- No [id number] 600mg Take 1 Univers 600 mg 2-06 21-11 tablet by ity of tablet 00:00: 00:00 mouth [place] 00 :00 every 8 Medical (eight) Branch hours as needed for Pain (scale 4-6) (headache) . fluticasone 2019-03- No [id number] 1{spray Use 1 Univers propionate 04-26 } [place] in ity of 50 00:00: 00:00 each [place] mcg/actuati 00 :00 nostril Medic al on nasal daily. Branch spray ibuprofen 2019-03- No [id number] 600mg Take 1 Univers 600 mg 2-04 -11 tablet by ity of tablet 00:00: 00:00 mouth [place] 00 :00 every 8 Medical (eight) Branch hours as needed for Pain (scale 4-6) (headache) . fluticasone 2019-03- No [id number] 1{spray Use 1 Univers propionate 2-06 21- } [place] in ity of 50 00:00: 00:00 each [place] mcg/actuati 00 :00 nostril Medic al on nasal daily. Branch spray ibuprofen 2019-03 No [id number] 600mg Take 1 Univers 600 mg 04-26 tablet by ity of tablet 00:00: 00:00 mouth [place] 00 :00 every 8 Medical (eight) Branch hours as needed for Pain (scale 4-6) (headache) . fluticasone 2019-03 No [id number] 1{spray Use 1 Univers propionate 04-26 } [place] in ity of 50 00:00: 00:00 each [place] mcg/actuati 00 :00 nostril Medic al on nasal daily. Branch spray ibuprofen 2019-03 No [id number] 600mg Take 1 Univers 600 mg 04-26 tablet by ity of tablet 00:00: 00:00 mouth [place] 00 :00 every 8 Medical (eight) Branch hours as needed for Pain (scale 4-6) (headache) . fluticasone 2019-03 No [id number] 1{spray Use 1 Univers propionate 04-26 } [place] in ity of 50 00:00: 00:00 each [...] :00 1 dose, Medica l mg Mon [place] 01/30/20 at 1645, Routine
Use approved by: [employer] etonogestre 2019-03- No 68mg Unive rs L 03-31 ity of (NEXPLANON) 22:45: 21:43 [place] implant 68 00 :00 Medical mg Branch etonogestre 2019-03- No 68mg 68 mg, Uni vers L 03-31 Subdermal, ity of (NEXPLANON) 22:45: 21:43 ONCE NOW, [place] implant 68 00 :00 1 dose, Medica l mg Mon [place] 11/9/20 at 1645, Routine
Use approved by: [employer] topiramate 2020-0 Yes [id number] 25mg Take 1 Univers (TOPAMAX) 7-22 tablet by ity o f 25 mg 00:00: mouth 2 [place] tablet 00 (two) Medical times Branch daily. topiramate 2020-0 Yes [id number] 25mg Take 1 Univers (TOPAMAX) 7-22 tablet by ity o f 25 mg 00:00: mouth 2 [place] tablet 00 (two) Medical times Branch daily. topiramate 2020-0 Yes [id number] 25mg Take 1 Univers (TOPAMAX) 7-22 tablet by ity o f 25 mg 00:00: mouth 2 [place] tablet 00 (two) Medical times Branch daily. topiramate 2020-0 Yes [id number] 25mg Take 1 Univers (TOPAMAX) 7-22 tablet by ity o f 25 mg 00:00: mouth 2 [place] tablet 00 (two) Medical times Branch daily. topiramate 2020-0 Yes [id number] 25mg Take 1 Univers (TOPAMAX) 7-22 tablet by ity o f 25 mg 00:00: mouth 2 [place] tablet 00 (two) Medical times Branch daily. topiramate 2020-0 Yes [id number] 25mg Take 1 Univers (TOPAMAX) 7-22 tablet by ity o f 25 mg 00:00: mouth 2 [place] tablet 00 (two) Medical times Branch daily. topiramate 2020-0 Yes [id number] 25mg Take 1 Univers (TOPAMAX) 7-22 tablet by ity o f 25 mg 00:00: mouth 2 [place] tablet 00 (two) Medical times Branch daily. topiramate 2020-0 Yes [id number] 25mg Take 1 Univers (TOPAMAX) 7-22 tablet by ity o f 25 mg 00:00: mouth 2 [place] tablet 00 (two) Medical times Branch daily. topiramate 2020-0 Yes [id number] 25mg Take 1 Univers (TOPAMAX) 7-22 tablet by ity o f 25 mg 00:00: mouth 2 [place] tablet 00 (two) Medical times Branch daily. topiramate 2020-0 Yes [id number] 25mg Take 1 Univers (TOPAMAX) 7-22 tablet by ity o f 25 mg 00:00: mouth 2 [place] tablet 00 (two) Medical times Branch daily. topiramate 2020-0 2020- No [id number] 25mg Take 1 Univers (TOPAMAX) 7-22 12-04 tablet by ity of 25 mg 00:00: 00:00 mouth 2 [place] tablet 00 :00 (two) Medical times Branch daily. topiramate 2020-0 2020- No [id number] 25mg Take 1 Univers (TOPAMAX) 7-22 12-04 tablet by ity of 25 mg 00:00: 00:00 mouth 2 [place] tablet 00 :00 (two) Medical times Branch daily. topiramate 2020-0 2020- No 25mg Take 25 mg Univers (TOPAMAX) 7-16 07-16 by mouth. ity of 25 mg 20:30: 00:00 [place] tablet 28 :00 Medical Branch topiramate 2020-0 2020- No 25mg Take 25 mg Univers (TOPAMAX) -05 10-16 by mouth. ity of 25 mg 20:30: 00:00 [place] tablet 28 :00 Medical Branch topiramate 2020-0 Yes 25mg Take 1 Unive rs (TOPAMAX) 7-16 tablet by ity o f 25 mg 00:00: mouth 2 [place] tablet 00 (two) Medical times Branch daily. omeprazole 2020-0 Yes [id number] 20mg Take 1 Univers 20 mg 7-16 capsule by ity of capsule 00:00: mouth [place] 00 daily. Medical Branch topiramate 2020-0 Yes 25mg Take 1 Unive rs (TOPAMAX) 7-16 tablet by ity o f 25 mg 00:00: mouth 2 [place] tablet 00 (two) Medical times Branch daily. omeprazole 2020-0 Yes [id number] 20mg Take 1 Univers 20 mg 7-16 capsule by ity of capsule 00:00: mouth [place] 00 daily. Medical Branch topiramate 2020-0 Yes 25mg Take 1 Unive rs (TOPAMAX) 7-16 tablet by ity o f 25 mg 00:00: mouth 2 [place] tablet 00 (two) Medical times Branch daily. omeprazole 2020-0 Yes [id number] 20mg Take 1 Univers 20 mg 7-16 capsule by ity of capsule 00:00: mouth [place] 00 daily. Medical Branch omeprazole 2020-0 Yes [id number] 20mg Take 1 Univers 20 mg 7-16 capsule by ity of capsule 00:00: mouth [place] 00 daily. Medical Branch omeprazole 2020-0 Yes [id number] 20mg Take 1 Univers 20 mg 7-16 capsule by ity of capsule 00:00: mouth [place] 00 daily. Medical Branch omeprazole 2020-0 Yes [id number] 20mg Take 1 Univers 20 mg 7-16 capsule by ity of capsule 00:00: mouth [place] 00 daily. Medical Branch omeprazole 2020-0 Yes [id number] 20mg Take 1 Univers 20 mg 7-16 capsule by ity of capsule 00:00: mouth [place] 00 daily. Medical Branch omeprazole 2020-0 Yes [id number] 20mg Take 1 Univers 20 mg 7-16 capsule by ity of capsule 00:00: mouth [place] 00 daily. Medical Branch omeprazole 2020-0 Yes [id number] 20mg Take 1 Univers 20 mg 7-16 capsule by ity of capsule 00:00: mouth [place] 00 daily. Medical Branch omeprazole 2020-0 Yes [id number] 20mg Take 1 Univers 20 mg 7-16 capsule by ity of capsule 00:00: mouth [place] 00 daily. Medical Branch omeprazole 2020-0 Yes [id number] 20mg Take 1 Univers 20 mg 7-16 capsule by ity of capsule 00:00: mouth [place] 00 daily. Medical Branch omeprazole 2020-0 Yes [id number] 20mg Take 1 Univers 20 mg 7-16 capsule by ity of capsule 00:00: mouth [place] 00 daily. Medical Branch omeprazole 2020-0 Yes [id number] 20mg Take 1 Univers 20 mg 7-16 capsule by ity of capsule 00:00: mouth [place] 00 daily. Medical Branch omeprazole 2020-0 Yes [id number] 20mg Take 1 Univers 20 mg 7-16 capsule by ity of capsule 00:00: mouth [place] 00 daily. Medical Branch omeprazole 2020-0 Yes [id number] 20mg Take 1 Univers 20 mg 7-16 capsule by ity of capsule 00:00: mouth [place] 00 daily. Medical Branch omeprazole 2020-0 Yes [id number] 20mg Take 1 Univers 20 mg 7-16 capsule by ity of capsule 00:00: mouth [place] 00 daily. Medical Branch omeprazole 2020-0 Yes [id number] 20mg Take 1 Univers 20 mg 7-16 capsule by ity of capsule 00:00: mouth [place] 00 daily. Medical Branch omeprazole 2020-0 2020- No [id number] 20mg Take 1 Univers 20 mg 7-16 12-04 capsule by ity of capsule 00:00: 00:00 mouth [place] 00 :00 daily. Medical Branch omeprazole 2020-0 2020- No [id number] 20mg Take 1 Univers 20 mg 7-16 [...] mouth ity of tablet 00:00: as needed. [place] Medical Branch meclizine 2020-0 Yes 25mg Take 25 mg Un dante 25 mg 7-07 by mouth ity of tablet 00:00: as needed. [place] Medical Branch meclizine 2020-0 Yes 25mg Take 25 mg Un dante 25 mg 7-07 by mouth ity of tablet 00:00: as needed. [place] Medical Branch meclizine 2020-0 Yes 25mg Take 25 mg Un dante 25 mg 7-07 by mouth ity of tablet 00:00: as needed. [place] Medical Branch meclizine 2020-0 Yes 25mg Take 25 mg Un dante 25 mg 7-07 by mouth ity of tablet 00:00: as needed. [place] Medical Branch meclizine 2020-0 Yes 25mg Take 25 mg Un dante 25 mg 7-07 by mouth ity of tablet 00:00: as needed. [place] Medical Branch meclizine 2020-0 Yes 25mg Take 25 mg Un dante 25 mg 7-07 by mouth ity of tablet 00:00: as needed. [place] Medical Branch meclizine 2020-0 Yes 25mg Take 25 mg Un dante 25 mg 7-07 by mouth ity of tablet 00:00: as needed. [place] [address] Medical Branch meclizine 2020-0 Yes 25mg Take 25 mg Un dante 25 mg 7-07 by mouth ity of tablet 00:00: as needed. [place] Medical Branch meclizine 2020-0 Yes 25mg Take 25 mg Un dante 25 mg 7-07 by mouth ity of tablet 00:00: as needed. [place] [address] Medical Branch meclizine 2020-0 Yes 25mg Take 25 mg Un dante 25 mg 7-07 by mouth ity of tablet 00:00: as needed. [place] [address] Medical Branch meclizine 2020-0 Yes 25mg Take 25 mg Un dante 25 mg 7-07 by mouth ity of tablet 00:00: as needed. [place] [address] Medical Branch meclizine 2020-0 Yes 25mg Take 25 mg Un dante 25 mg 7-07 by mouth ity of tablet 00:00: as needed. [place] [address] Medical Branch meclizine 2020-0 Yes 25mg Take 25 mg Un dante 25 mg 7-07 by mouth ity of tablet 00:00: as needed. [place] [address] Medical Branch meclizine 2020-0 Yes 25mg Take 25 mg Un dante 25 mg 7-07 by mouth ity of tablet 00:00: as needed. [place] [address] Medical Branch meclizine 2020-0 Yes 25mg Take 25 mg Un dante 25 mg 7-07 by mouth ity of tablet 00:00: as needed. [place] [address] Medical Branch meclizine 2020-0 Yes 25mg Take 25 mg Un dante 25 mg 7-07 by mouth ity of tablet 00:00: as needed. [place] [address] Medical Branch meclizine 2020-0 2020- No 25mg Take 25 mg U nivers 25 mg 09-26 by mouth ity of tablet 00:00: 00:00 [place]. [place] :[place] meclizine 2020- No 25mg Take 25 mg U nivers 25 mg 09-26 by mouth ity of tablet 00:00: 00:00 [place]. [place] :[place] Branch Nitrofurant 2019-0 Yes [id number] 100mg Take 1 Univers oin&Nit. 5-18 capsule by ity o f Macrocryst 00:00: mouth 2 [place] (MACROBID) 00 (two) Medical 100 mg times Branch capsule daily. Nitrofurant Yes [id number] 100mg Take 1 Univers oin&Nit. 5-18 capsule by ity o f Macrocryst 00:00: mouth 2 [place] (MACROBID) 00 (two) Medical 100 mg times Branch capsule daily. Nitrofurant Yes [id number] 100mg Take 1 Univers oin&Nit. 5-18 capsule by ity o f Macrocryst 00:00: mouth 2 [place] (MACROBID) 00 (two) Medical 100 mg times Branch capsule daily. Nitrofurant 2020- No [id number] 100mg Take 1 Univers oin&Nit. 5-18 07-16 capsule by ity of Macrocryst 00:00: 00:00 mouth 2 [place] [facility] (MACROBID) 00 :00 (two) Medical 100 mg times Branch capsule daily. Nitrofurant 2020- No [id number] 100mg Take 1 [facility] oin&Nit. 5-18 07-16 capsule by ity of Macrocryst 00:00: 00:00 mouth 2 [place] [facility] (MACROBID) 00 :00 (two) Medical 100 mg times Branch capsule daily. etonogestre 2020- No 68mg Unive rs l 08-03 ity of (NEXPLANON) 20:45: 19:36 [place] implant 68 00 :00 Medical mg Branch etonogestre 2019- No 68mg 68 mg, Uni vers l 08-03 Subdermal, ity of (NEXPLANON) 20:45: 19:36 ONCE NOW, [place] implant 68 00 :00 1 dose, Medica l mg Gladys Branch 5/14/20 at 1545, Routine
Use approved by: [employer] etonogestre 2020-0 2019- No 68mg Unive rs l 08-03 ity of (NEXPLANON) 20:45: 19:36 [place] implant 68 00 :00 Medical mg Branch etonogestre 2020-0 2019- No 68mg 68 mg, Uni vers l 08-03 Subdermal, ity of (NEXPLANON) 20:45: 19:36 ONCE NOW, [place] implant 68 00 :00 1 dose, Medica l mg Gladys Branch 08/04/19 at 1545, Routine
Use approved by: [employer] norelgestro 2020-0 Yes [id number] 1{patch Apply 1 [facility] min-ethinyl 3-25 } Patch to ity of estradiol 00:00: [facility] 150-35 00 weekly. Medical mcg/24 hr Branch patch norelgestro 2020-0 Yes [id number] 1{patch Apply 1 Univers min-ethinyl 3-25 } Patch to ity of estradiol 00:00: [facility] 150-35 00 weekly. Medical mcg/24 hr Branch patch norelgestro 2020-0 Yes [id number] 1{patch Apply 1 Univers min-ethinyl 3-25 } Patch to ity of estradiol 00:00: [facility] 150-35 00 weekly. Medical mcg/24 hr Branch patch norelgestro 2020-0 Yes [id number] 1{patch Apply 1 Univers min-ethinyl 3-25 } Patch to ity of estradiol 00:00: [facility] 150-35 00 weekly. Medical mcg/24 hr Branch patch norelgestro 2020-0 Yes [id number] 1{patch Apply 1 [facility] min-ethinyl 3-25 } Patch to ity of estradiol 00:00: [facility] [place] 150-35 00 weekly. Medical mcg/24 hr Branch patch norelgestro 2020-0 2020- No [id number] 1{patch Apply 1 [facility] min-ethinyl 3-25 05-14 } Patch to ity of estradiol 00:00: 00:00 skin [place] 150-35 00 :00 weekly. Medical mcg/24 hr Branch patch norelgestro 2020-0 2020- No [id number] 1{patch Apply 1 [facility] min-ethinyl 3-25 05-14 } Patch to ity of estradiol 00:00: 00:00 skin [place] 150-35 00 :00 weekly. Medical mcg/24 hr Branch patch ibuprofen 2020-0 Yes [id number] 600mg Take 1 U nivers 600 mg 3-02 tablet by ity of tablet 00:00: mouth [place] 00 every 8 Medical (eight) Branch hours as needed for Pain (scale 4-6) (headache) . ibuprofen 2020-0 Yes [id number] 600mg Take 1 U nivers 600 mg 3-02 tablet by ity of tablet 00:00: mouth [place] 00 every 8 Medical (eight) Branch hours as needed for Pain (scale 4-6) (headache) . ibuprofen 2020-0 Yes [id number] 600mg Take 1 U nivers 600 mg 3-02 tablet by ity of tablet 00:00: mouth [place] 00 every 8 Medical (eight) Branch hours as needed for Pain (scale 4-6) (headache) . ibuprofen 2020-0 Yes [id number] 600mg Take 1 U nivers 600 mg 3-02 tablet by ity of tablet 00:00: mouth [place] 00 every 8 Medical (eight) Branch hours as needed for Pain (scale 4-6) (headache) . ibuprofen 2020-0 Yes [id number] 600mg Take 1 U nivers 600 mg 3-02 tablet by ity of tablet 00:00: mouth [place] 00 every 8 Medical (eight) Branch hours as needed for Pain (scale 4-6) (headache) . ibuprofen 2020-0 Yes [id number] 600mg Take 1 U nivers 600 mg 3-02 tablet by ity of tablet 00:00: mouth [place] 00 every 8 Medical (eight) Branch hours as needed for Pain (scale 4-6) (headache) . ibuprofen 2020-0 Yes [id number] 600mg Take 1 U nivers 600 mg 3-02 tablet by ity of tablet 00:00: mouth [place] 00 every 8 Medical (eight) Branch hours as needed for Pain (scale 4-6) (headache) . ibuprofen 2020-0 Yes [id number] 600mg Take 1 U nivers 600 mg 3-02 tablet by ity of tablet 00:00: mouth [place] 00 every 8 Medical (eight) Branch hours as needed for Pain (scale 4-6) (headache) . ibuprofen 2020-0 Yes [id number] 600mg Take 1 U nivers 600 mg 3-02 tablet by ity of tablet 00:00: mouth [place] 00 every 8 Medical (eight) Branch hours as needed for Pain (scale 4-6) (headache) . ibuprofen 2020-0 Yes [id number] 600mg Take 1 U nivers 600 mg 3-02 tablet by ity of tablet 00:00: mouth [place] 00 every 8 Medical (eight) Branch hours as needed for Pain (scale 4-6) (headache) . ibuprofen 2020-0 Yes [id number] 600mg Take 1 U nivers 600 mg 3-02 tablet by ity of tablet 00:00: mouth [place] 00 every 8 Medical (eight) Branch hours as needed for Pain (scale 4-6) (headache) . ibuprofen 2020-0 Yes [id number] 600mg Take 1 U nivers 600 mg 3-02 tablet by ity of tablet 00:00: mouth [place] 00 every 8 Medical (eight) Branch hours as needed for Pain (scale 4-6) (headache) . ibuprofen 2020-0 Yes [id number] 600mg Take 1 U nivers 600 mg 3-02 tablet by ity of tablet 00:00: mouth [place] 00 every 8 Medical (eight) Branch hours as needed for Pain (scale 4-6) (headache) . ibuprofen 2020-0 Yes [id number] 600mg Take 1 U nivers 600 mg 3-02 tablet by ity of tablet 00:00: mouth [place] 00 every 8 Medical (eight) Branch hours as needed for Pain (scale 4-6) (headache) . ibuprofen 2020-0 Yes [id number] 600mg Take 1 U nivers 600 mg 3-02 tablet by ity of tablet 00:00: mouth [place] 00 every 8 Medical (eight) Branch hours as needed for Pain (scale 4-6) (headache) . ibuprofen 2020-0 Yes [id number] 600mg Take 1 U nivers 600 mg 3-02 tablet by ity of tablet 00:00: mouth [place] 00 every 8 Medical (eight) Branch hours as needed for Pain (scale 4-6) (headache) . ibuprofen 2020-0 Yes [id number] 600mg Take 1 U nivers 600 mg 3-02 tablet by ity of tablet 00:00: mouth [place] 00 every 8 Medical (eight) Branch hours as needed for Pain (scale 4-6) (headache) . ibuprofen 2020-0 Yes [id number] 600mg Take 1 U nivers 600 mg 3-02 tablet by ity of tablet 00:00: mouth [place] 00 every 8 Medical (eight) Branch hours as needed for Pain (scale 4-6) (headache) . ibuprofen 2020-0 Yes [id number] 600mg Take 1 U nivers 600 mg 3-02 tablet by ity of tablet 00:00: mouth [place] 00 every 8 Medical (eight) Branch hours as needed for Pain (scale 4-6) (headache) . ibuprofen 2020-0 Yes [id number] 600mg Take 1 U nivers 600 mg 3-02 tablet by ity of tablet 00:00: mouth [place] 00 every 8 Medical (eight) Branch hours as needed for Pain (scale 4-6) (headache) . ibuprofen 2020-0 Yes [id number] 600mg Take 1 U nivers 600 mg 3-02 tablet by ity of tablet 00:00: mouth [place] 00 every 8 Medical (eight) Branch hours as needed for Pain (scale 4-6) (headache) . ibuprofen 2020-0 Yes [id number] 600mg Take 1 U nivers 600 mg 3-02 tablet by ity of tablet 00:00: mouth [place] 00 every 8 Medical (eight) Branch hours as needed for Pain (scale 4-6) (headache) . ibuprofen 2020-0 Yes [id number] 600mg Take 1 U nivers 600 mg 3-02 tablet by ity of tablet 00:00: mouth [place] 00 every 8 Medical (eight) Branch hours as needed for Pain (scale 4-6) (headache) . ibuprofen 2020-0 Yes [id number] 600mg Take 1 U nivers 600 mg 3-02 tablet by ity of tablet 00:00: mouth [place] 00 every 8 Medical (eight) Branch hours as needed for Pain (scale 4-6) (headache) . ibuprofen 2020-0 Yes [id number] 600mg Take 1 U nivers 600 mg 3-02 tablet by ity of tablet 00:00: mouth [place] 00 every 8 Medical (eight) Branch hours as needed for Pain (scale 4-6) (headache) . ibuprofen 2020-0 Yes [id number] 600mg Take 1 U nivers 600 mg 3-02 tablet by ity of tablet 00:00: mouth [place] 00 every 8 Medical (eight) Branch hours as needed for Pain (scale 4-6) (headache) . ibuprofen 2020-0 Yes [id number] 600mg Take 1 U nivers 600 mg 3-02 tablet by ity of tablet 00:00: mouth [place] 00 every 8 Medical (eight) Branch hours as needed for Pain (scale 4-6) (headache) . ibuprofen 2020-0 Yes [id number] 600mg Take 1 U nivers 600 mg 3-02 tablet by ity of tablet 00:00: mouth [place] 00 every 8 Medical (eight) Branch hours as needed for Pain (scale 4-6) (headache) . ibuprofen 2020-0 Yes [id number] 600mg Take 1 U nivers 600 mg 3-02 tablet by ity of tablet 00:00: mouth [place] 00 every 8 Medical (eight) Branch hours as needed for Pain (scale 4-6) (headache) . ibuprofen 2020-0 Yes [id number] 600mg Take 1 U nivers 600 mg 3-02 tablet by ity of tablet 00:00: mouth [place] 00 every 8 Medical (eight) Branch hours as needed for Pain (scale 4-6) (headache) . ibuprofen 2020-0 Yes [id number] 600mg Take 1 U nivers 600 mg 3-02 tablet by ity of tablet 00:00: mouth [place] 00 every 8 Medical (eight) Branch hours as needed for Pain (scale 4-6) (headache) . ibuprofen 2020-0 2020- No [id number] 600mg Take 1 [facility] 600 mg 3-02 12-04 tablet by ity of tablet 00:00: 00:00 mouth [place] 00 :00 every 8 Medical (eight) Branch hours as needed for Pain (scale 4-6) (headache) . ibuprofen 2020-0 2020- No [id number] 600mg Take 1 [facility] 600 mg 3-02 12-04 tablet by ity of tablet 00:00: 00:00 mouth [place] 00 :00 every 8 Medical (eight) Branch hours as needed for Pain (scale 4-6) (headache) . medroxyPROG 2019-0 2020- No 150mg Univ ers ESTERone 2-24 -24 ity of (DEPO-PROVE 23:00: 21:50 [place] RA) 00 :00 Medical injection Branch 150 mg medroxyPROG 2020-0 2020- No 150mg 150 mg, U nivers ESTERone 2-24 -24 Intramuscu ity of (DEPO-PROVE 23:00: 21:50 lar, ONCE, [place] RA) 00 :00 1 dose, Medical injection Mon Branch 150 mg 05/16/19 at 1700, Routine oxybutynin 2020-0 Yes [id number] 5mg Take 1 U nivers chloride 5 2-11 tablet by ity of mg tablet 00:00: mouth (two) Medical times Branch daily. oxybutynin 2020-0 Yes [id number] 5mg Take 1 U nivers chloride 5 2-11 tablet by ity of mg tablet 00:00: mouth (two) Medical times Branch daily. oxybutynin 2020-0 Yes [id number] 5mg Take 1 U nivers chloride 5 2-11 tablet by ity of mg tablet 00:00: mouth (two) Medical times Branch daily. oxybutynin 2020-0 Yes [id number] 5mg Take 1 U nivers chloride 5 2-11 tablet by ity of mg tablet 00:00: mouth (two) Medical times Branch daily. oxybutynin 2020-0 Yes [id number] 5mg Take 1 U nivers chloride 5 2-11 tablet by ity of mg tablet 00:00: mouth (two) Medical times Branch daily. oxybutynin 2020-0 Yes [id number] 5mg Take 1 U nivers chloride 5 2-11 tablet by ity of mg tablet 00:00: mouth (two) Medical times Branch daily. oxybutynin 2020-0 Yes [id number] 5mg Take 1 U nivers chloride 5 2-11 tablet by ity of mg tablet 00:00: mouth (two) Medical times Branch daily. oxybutynin 2020-0 Yes [id number] 5mg Take 1 U nivers chloride 5 2-11 tablet by ity of mg tablet 00:00: mouth (two) Medical times Branch daily. oxybutynin 2020-0 Yes [id number] 5mg Take 1 U nivers chloride 5 2-11 tablet by ity of mg tablet 00:00: mouth (two) Medical times Branch daily. oxybutynin 2020-0 Yes [id number] 5mg Take 1 U nivers chloride 5 2-11 tablet by ity of mg tablet 00:00: mouth (two) Medical times Branch daily. oxybutynin 2020-0 Yes [id number] 5mg Take 1 U nivers chloride 5 2-11 tablet by ity of mg tablet 00:00: mouth (two) Medical times Branch daily. oxybutynin 2020-0 Yes [id number] 5mg Take 1 U nivers chloride 5 2-11 tablet by ity of mg tablet 00:00: mouth 2 [place] (two) Medical times Branch daily. oxybutynin 2020-0 Yes [id number] 5mg Take 1 U nivers chloride 5 2-11 tablet by ity of mg tablet 00:00: mouth 2 [place] 00 (two) Medical times Branch daily. oxybutynin 2020-0 Yes [id number] 5mg Take 1 U nivers chloride 5 2-11 tablet by ity of mg tablet 00:00: mouth 2 [place] 00 (two) Medical times Branch daily. oxybutynin 2020-0 Yes [id number] 5mg Take 1 U nivers chloride 5 2-11 tablet by ity of mg tablet 00:00: mouth 2 [place] (two) Medical times Branch daily. oxybutynin 2020-0 Yes [id number] 5mg Take 1 U nivers chloride 5 2-11 tablet by ity of mg tablet 00:00: mouth 2 [place] (two) Medical times Branch daily. oxybutynin 2020-0 Yes [id number] 5mg Take 1 U nivers chloride 5 2-11 tablet by ity of mg tablet 00:00: mouth 2 [place] (two) Medical times Branch daily. oxybutynin 2020-0 2020- No [id number] 5mg Take 1 [facility] chloride 5 2-11 07-16 tablet by ity of mg tablet 00:00: 00:00 [place] 00 :[place] (two) Medical times Branch daily. oxybutynin 2020-0 2020- No [id number] 5mg Take 1 [facility] chloride 5 2-11 07-16 tablet by ity of mg tablet 00:00: 00:00 mouth [place] 00 :00 (two) Medical times Branch daily. polyethylen 2018-03 Yes [id number] 1/2 cap Univers e glycol 2-31 twice ity of (MIRALAX) 00:00: daily [place] Medical gram/dose Branch powder polyethylen 2018- Yes [id number] 1/2 cap Univers e glycol 2-31 twice ity of (MIRALAX) 00:00: daily [place] Medical gram/dose Branch powder polyethylen 2018- Yes [id number] 1/2 cap Univers e glycol 2-31 twice ity of (MIRALAX) 00:00: daily [place] [address] Medical gram/dose Branch powder polyethylen 2019- Yes [id number] 1/2 cap Univers e glycol 2-31 twice ity of (MIRALAX) 00:00: daily [place] 17 Medical gram/dose Branch powder polyethylen 2019- Yes [id number] 1/2 cap Univers e glycol 2-31 twice ity of (MIRALAX) 00:00: daily [place] 17 Medical gram/dose Branch powder polyethylen 2019- Yes [id number] 1/2 cap Univers e glycol 2-31 twice ity of (MIRALAX) 00:00: daily [place] 17 Medical gram/dose Branch powder polyethylen 2019- Yes [id number] 1/2 cap Univers e glycol 2-31 twice ity of (MIRALAX) 00:00: daily [place] 17 Medical gram/dose Branch powder polyethylen 2019- Yes [id number] 1/2 cap Univers e glycol 2-31 twice ity of (MIRALAX) 00:00: daily [place] 17 Medical gram/dose Branch powder polyethylen 2019- Yes [id number] 1/2 cap Univers e glycol 2-31 twice ity of (MIRALAX) 00:00: daily [place] 17 Medical gram/dose Branch powder polyethylen 2019- Yes [id number] 1/2 cap Univers e glycol 2-31 twice ity of (MIRALAX) 00:00: daily [place] 17 Medical gram/dose Branch powder polyethylen 2019- Yes [id number] 1/2 cap Univers e glycol 2-31 twice ity of (MIRALAX) 00:00: daily [place] 17 Medical gram/dose Branch powder polyethylen 2019- Yes [id number] 1/2 cap Univers e glycol 2-31 twice ity of (MIRALAX) 00:00: daily [place] 17 Medical gram/dose Branch powder polyethylen 2019- Yes [id number] 1/2 cap Univers e glycol 2-31 twice ity of (MIRALAX) 00:00: daily [place] 17 Medical gram/dose Branch powder polyethylen 2019- Yes [id number] 1/2 cap Univers e glycol 2-31 twice ity of (MIRALAX) 00:00: daily [place] 17 Medical gram/dose Branch powder polyethylen 2019- Yes [id number] 1/2 cap Univers e glycol 2-31 twice ity of (MIRALAX) 00:00: daily [place] 17 Medical gram/dose Branch powder polyethylen 2019- Yes [id number] 1/2 cap Univers e glycol 2-31 twice ity of (MIRALAX) 00:00: daily [place] 17 Medical gram/dose Branch powder polyethylen 2019- Yes [id number] 1/2 cap Univers e glycol 2-31 twice ity of (MIRALAX) 00:00: daily [place] 17 Medical gram/dose Branch powder polyethylen 2019- Yes [id number] 1/2 cap Univers e glycol 2-31 twice ity of (MIRALAX) 00:00: daily [place] 17 Medical gram/dose Branch powder polyethylen 2019- Yes [id number] 1/2 cap Univers e glycol 2-31 twice ity of (MIRALAX) 00:00: daily [place] 17 Medical gram/dose Branch powder polyethylen 2019- Yes [id number] 1/2 cap Univers e glycol 2-31 twice ity of (MIRALAX) 00:00: daily [place] 17 Medical gram/dose Branch powder polyethylen 2019- Yes [id number] 1/2 cap Univers e glycol 2-31 twice ity of (MIRALAX) 00:00: daily [place] 17 Medical gram/dose Branch powder polyethylen 2019- Yes [id number] 1/2 cap Univers e glycol 2-31 twice ity of (MIRALAX) 00:00: daily [place] 17 Medical gram/dose Branch powder polyethylen 2019- Yes [id number] 1/2 cap Univers e glycol 2-31 twice ity of (MIRALAX) 00:00: daily [place] 17 Medical gram/dose Branch powder polyethylen 2019- Yes [id number] 1/2 cap Univers e glycol 2-31 twice ity of (MIRALAX) 00:00: daily [place] 17 Medical gram/dose Branch powder polyethylen 2019- Yes [id number] 1/2 cap Univers e glycol 2-31 twice ity of (MIRALAX) 00:00: daily [place] 17 Medical gram/dose Branch powder polyethylen 2019- Yes [id number] 1/2 cap Univers e glycol 2-31 twice ity of (MIRALAX) 00:00: daily [place] 17 Medical gram/dose Branch powder polyethylen 2019- Yes [id number] 1/2 cap Univers e glycol 2-31 twice ity of (MIRALAX) 00:00: daily [place] 17 Medical gram/dose Branch powder polyethylen 2019- Yes [id number] 1/2 cap Univers e glycol 2-31 twice ity of (MIRALAX) 00:00: daily [place] 17 Medical gram/dose Branch powder polyethylen 2019- Yes [id number] 1/2 cap Univers e glycol 2-31 twice ity of (MIRALAX) 00:00: daily [place] 17 Medical gram/dose Branch powder polyethylen 2019- Yes [id number] 1/2 cap Univers e glycol 2-31 twice ity of (MIRALAX) 00:00: daily [place] 17 Medical gram/dose Branch powder polyethylen 2019- Yes [id number] 1/2 cap Univers e glycol 2-31 twice ity of (MIRALAX) 00:00: daily [place] 17 Medical gram/dose Branch powder polyethylen 2019- Yes [id number] 1/2 cap Univers e glycol 2-31 twice ity of (MIRALAX) 00:00: daily [place] 17 Medical gram/dose Branch powder polyethylen 2019- Yes [id number] 1/2 cap Univers e glycol 2-31 twice ity of (MIRALAX) 00:00: daily [place] 17 Medical gram/dose Branch powder polyethylen 2019- Yes [id number] 1/2 cap Univers e glycol 2-31 twice ity of (MIRALAX) 00:00: daily [place] 17 Medical gram/dose Branch powder polyethylen 2019- Yes [id number] 1/2 cap Univers e glycol 2-31 twice ity of (MIRALAX) 00:00: daily [place] 17 Medical gram/dose Branch powder polyethylen 2019- Yes [id number] 1/2 cap Univers e glycol 2-31 twice ity of (MIRALAX) 00:00: daily [place] 17 Medical gram/dose Branch powder polyethylen 2019- Yes [id number] 1/2 cap Univers e glycol 2-31 twice ity of (MIRALAX) 00:00: daily [place] 17 Medical gram/dose Branch powder polyethylen 2019- Yes [id number] 1/2 cap Univers e glycol 2-31 twice ity of (MIRALAX) 00:00: daily [place] 17 Medical gram/dose Branch powder polyethylen 2018-03 Yes [id number] 1/2 cap Univers e glycol twice ity of (MIRALAX) 00:00: daily [place] 17 Medical gram/dose Branch powder polyethylen 2018-03 Yes [id number] 1/2 cap Univers e glycol twice ity of (MIRALAX) 00:00: daily [place] 17 Medical gram/dose Branch powder polyethylen 2018-03- No [id number] 1/2 cap Univers e glycol 04-02 twice ity of (MIRALAX) 00:00: 00:00 daily [place] [address] 00 :00 Medical gram/dose Branch powder polyethylen 2018-03- No [id number] 1/2 cap Univers e glycol 04-02 twice ity of (MIRALAX) 00:00: 00:00 daily [place] [address] 00 :00 Medical gram/dose Branch powder polyethylen 2018-03- No [id number] 1/2 cap Univers e glycol 04-02 twice ity of (MIRALAX) 00:00: 00:00 daily [place] [address] 00 :00 Medical gram/dose Branch powder polyethylen 2018-03- No [id number] 1/2 cap Univers e glycol 04-02 twice ity of (MIRALAX) 00:00: 00:00 daily [place] [address] 00 :00 Medical gram/dose Branch powder polyethylen 2018-03- No [id number] 1/2 cap Univers e glycol 04-02 twice ity of (MIRALAX) 00:00: 00:00 daily [place] [address] 00 :00 Medical gram/dose Branch powder polyethylen 2018-03- No [id number] 1/2 cap Univers e glycol 04-02 twice ity of (MIRALAX) 00:00: 00:00 daily [place] [address] 00 :00 Medical gram/dose Branch powder medroxyPROG 2019- No [id number] 150mg Univers ESTERone 11-11 ity of (DEPO-PROVE 15:00: 13:54 [place] ) 00 :00 Medical injection Branch 150 mg medroxyPROG 2019- No [id number] 150mg 150 mg, Univers ESTERone 11-11 Intramuscu ity of (DEPO-PROVE 15:00: 13:54 lar, ONCE, [place] RA) 00 :00 1 dose, Medical injection Gladys Branch 150 mg 11/11/18 at 1000, Routine medroxyPROG 2019- No [id number] 150mg Univers ESTERone 11-11 ity of (DEPO-PROVE 15:00: 13:54 [place] RA) 00 :00 Medical injection Branch 150 mg medroxyPROG 2019- No [id number] 150mg 150 mg, Univers ESTERone 11-11 Intramuscu ity of (DEPO-PROVE 15:00: 13:54 lar, ONCE, [place] RA) 00 :00 1 dose, Medical injection Gladys Branch 150 mg 11/11/18 at 1000, Routine zonisamide Yes [id number] 200mg Take 2 [facility] 100 mg 4-12 capsules ity of capsule 00:00: by mouth [place] 00 daily. Medical Branch zonisamide Yes [id number] 200mg Take 2 [facility] 100 mg 4-12 capsules ity of capsule 00:00: by mouth [place] 00 daily. Medical Branch zonisamide Yes [id number] 200mg Take 2 [facility] 100 mg 4-12 capsules ity of capsule 00:00: by mouth [place] 00 daily. Medical Branch zonisamide Yes [id number] 200mg Take 2 [facility] 100 mg 4-12 capsules ity of capsule 00:00: by mouth [place] 00 daily. Medical Branch zonisamide 2018- Yes [id number] 200mg Take 2 [facility] 100 mg 4-12 capsules ity of capsule 00:00: by mouth [place] 00 daily. Medical Branch zonisamide Yes [id number] 200mg Take 2 [facility] 100 mg 4-12 capsules ity of capsule 00:00: by mouth [place] 00 daily. Medical Branch zonisamide 2018- Yes [id number] 200mg Take 2 [facility] 100 mg 4-12 capsules ity of capsule 00:00: by mouth [place] 00 daily. Medical Branch zonisamide Yes [id number] 200mg Take 2 [facility] 100 mg 4-12 capsules ity of capsule 00:00: by mouth [place] 00 daily. Medical Branch zonisamide Yes [id number] 200mg Take 2 [facility] 100 mg 4-12 capsules ity of capsule 00:00: by mouth [place] 00 daily. Medical Branch zonisamide 0 Yes [id number] 200mg Take 2 [facility] 100 mg 4-12 capsules ity of capsule 00:00: by mouth [place] 00 daily. Medical Branch zonisamide 0 Yes [id number] 200mg Take 2 [facility] 100 mg 4-12 capsules ity of capsule 00:00: by mouth [place] 00 daily. Medical Branch zonisamide Yes [id number] 200mg Take 2 [facility] 100 mg 4-12 capsules ity of capsule 00:00: by mouth [place] 00 daily. Medical Branch zonisamide Yes [id number] 200mg Take 2 [facility] 100 mg 4-12 capsules ity of capsule 00:00: by mouth [place] 00 daily. Medical Branch zonisamide Yes [id number] 200mg Take 2 [facility] 100 mg 4-12 capsules ity of capsule 00:00: by mouth [place] 00 daily. Medical Branch zonisamide Yes [id number] 200mg Take 2 [facility] 100 mg 4-12 capsules ity of capsule 00:00: by mouth [place] 00 daily. Medical Branch zonisamide 0 2020- No [id number] 200mg Take 2 [facility] 100 mg 4-12 02-11 capsules ity of capsule 00:00: 00:00 by mouth [place] 00 :00 daily. Medical Branch zonisamide 0 2020- No [id number] 200mg Take 2 Univers 100 mg 4-12 [...] 00 Medical injection Branch 150 mg medroxyPROG 2018-1 Yes 150mg Unive rs ESTERone 0-24 ity [...] rsity of PFIZER VACCINE 00:00:00 [place] [facility] SARS-COV-2 COVID-19 2020-07-06 Completed Unive rsity of PFIZER VACCINE 00:00:00 [place] [facility] SARS-COV-2 COVID-19 2020-07-06 Completed Unive rsity of PFIZER VACCINE 00:00:00 [facility] SARS-COV-2 COVID-19 2020-07-06 Completed Unive rsity of PFIZER VACCINE 00:00:00 [facility] SARS-COV-2 COVID-19 2020-07-06 Completed Unive rsity of PFIZER VACCINE 00:00:00 [facility] SARS-COV-2 COVID-19 2020-07-06 Completed Unive rsity of PFIZER VACCINE 00:00:00 [place] [facility] SARS-COV-2 COVID-19 2020-07-06 Completed Unive rsity of PFIZER VACCINE 00:00:00 [place] [facility] SARS-COV-2 COVID-19 2020-07-06 Completed Unive rsity of PFIZER VACCINE 00:00:00 [facility] Branch SARS-COV-2 COVID-19 2020-07-06 Completed Unive rsity of PFIZER VACCINE 00:00:00 [place] [facility] Branch SARS-COV-2 COVID-19 2020-07-06 Completed Unive rsity of PFIZER VACCINE 00:00:00 [facility] Branch SARS-COV-2 COVID-19 2020-07-06 Completed Unive rsity of PFIZER VACCINE 00:00:00 [facility] Branch SARS-COV-2 COVID-19 2020-07-06 Completed Unive rsity of PFIZER VACCINE 00:00:00 [facility] Branch SARS-COV-2 COVID-19 2020-07-06 Completed Unive rsity of PFIZER VACCINE 00:00:00 [facility] SARS-COV-2 COVID-19 2020-07-06 Completed Unive rsity of PFIZER VACCINE 00:00:00 [facility] SARS-COV-2 COVID-19 2020-07-06 Completed Unive rsity of PFIZER VACCINE 00:00:00 [facility] SARS-COV-2 COVID-19 2020-07-06 Completed Unive rsity of PFIZER VACCINE 00:00:00 [facility] SARS-COV-2 COVID-19 2020-07-06 Completed Unive rsity of PFIZER VACCINE 00:00:00 [facility] SARS-COV-2 COVID-19 2020-07-06 Completed Unive rsity of PFIZER VACCINE 00:00:00 [facility] SARS-COV-2 COVID-19 2020-07-06 Completed Unive rsity of PFIZER VACCINE 00:00:00 [facility] SARS-COV-2 COVID-19 2020-07-06 Completed Unive rsity of PFIZER VACCINE 00:00:00 [facility] SARS-COV-2 COVID-19 2020-07-06 Completed Unive rsity of PFIZER VACCINE 00:00:00 [facility] SARS-COV-2 COVID-19 2020-07-06 Completed Unive rsity of PFIZER VACCINE 00:00:00 [facility] SARS-COV-2 COVID-19 2020-07-06 Completed Unive rsity of PFIZER VACCINE 00:00:00 [facility] SARS-COV-2 COVID-19 2020-07-06 Completed [facility] PFIZER VACCINE 00:00:00 [facility] SARS-COV-2 COVID-19 2020-07-06 Completed [facility] PFIZER VACCINE 00:00:00 [facility] SARS-COV-2 COVID-19 2020-06-15 Completed [facility] PFIZER VACCINE 00:00:00 [facility] SARS-COV-2 COVID-19 2020-06-15 Completed [facility] PFIZER VACCINE 00:00:00 [facility] SARS-COV-2 COVID-19 2020-06-15 Completed [facility] PFIZER VACCINE 00:00:00 [facility] SARS-COV-2 COVID-19 2020-06-15 Completed [facility] PFIZER VACCINE 00:00:00 [facility] SARS-COV-2 COVID-19 2020-06-15 Completed [facility] PFIZER VACCINE 00:00:00 [facility] SARS-COV-2 COVID-19 2020-06-15 Completed [facility] PFIZER VACCINE 00:00:00 [facility] SARS-COV-2 COVID-19 2020-06-15 Completed [facility] PFIZER VACCINE 00:00:00 [facility] SARS-COV-2 COVID-19 2020-06-15 Completed [facility] PFIZER VACCINE 00:00:00 [facility] SARS-COV-2 COVID-19 2020-06-15 Completed [facility] PFIZER VACCINE 00:00:00 [facility] SARS-COV-2 COVID-19 2020-06-15 Completed [facility] PFIZER VACCINE 00:00:00 [facility] SARS-COV-2 COVID-19 2020-06-15 Completed [facility] PFIZER VACCINE 00:00:00 [facility] SARS-COV-2 COVID-19 2020-06-15 Completed [facility] PFIZER VACCINE 00:00:00 [facility] SARS-COV-2 COVID-19 2020-06-15 Completed [facility] PFIZER VACCINE 00:00:00 [facility] SARS-COV-2 COVID-19 2020-06-15 Completed [facility] PFIZER VACCINE 00:00:00 [facility] SARS-COV-2 COVID-19 2020-06-15 Completed [facility] PFIZER VACCINE 00:00:00 [facility] SARS-COV-2 COVID-19 2020-06-15 Completed [facility] PFIZER VACCINE 00:00:00 [facility] SARS-COV-2 COVID-19 2020-06-15 Completed [facility] PFIZER VACCINE 00:00:00 [facility] SARS-COV-2 COVID-19 2020-06-15 Completed [facility] PFIZER VACCINE 00:00:00 [facility] SARS-COV-2 COVID-19 2020-06-15 Completed [facility] PFIZER VACCINE 00:00:00 [facility] SARS-COV-2 COVID-19 2020-06-15 Completed [facility] PFIZER VACCINE 00:00:00 [facility] SARS-COV-2 COVID-19 2020-06-15 Completed [facility] PFIZER VACCINE 00:00:00 [facility] SARS-COV-2 COVID-19 2020-06-15 Completed [facility] PFIZER VACCINE 00:00:00 [facility] SARS-COV-2 COVID-19 2020-06-15 Completed [facility] PFIZER VACCINE 00:00:00 [facility] SARS-COV-2 COVID-19 2020-06-15 Completed [facility] PFIZER VACCINE 00:00:00 [facility] SARS-COV-2 COVID-19 2020-06-15 Completed [facility] PFIZER VACCINE 00:00:00 [facility] Meningococcal B, OMV 2020-04-16 Completed [facility] 00:00:00 [facility] Meningococcal B, OMV 2020-04-16 Completed [facility] 00:00:00 [facility] Meningococcal B, OMV 2020-04-16 Completed [facility] 00:00:00 [facility] Meningococcal B, OMV 2020-04-16 Completed [facility] 00:00:00 [facility] Meningococcal B, OMV 2020-04-16 Completed [facility] 00:00:00 [facility] Meningococcal B, OMV 2020-04-16 Completed Univ [...] OMV 2020-04-16 Completed [facility] of 00:00:00 [facility] Meningococcal B, OMV 2020-04-16 Completed [facility] of 00:00:00 [facility] Meningococcal B, OMV 2020-04-16 Completed [facility] of 00:00:00 [facility] Meningococcal B, OMV 2020-04-16 Completed [facility] 00:00:00 [facility] Meningococcal 2018-10-07 Completed [facility] Polysaccharide 00:00:00 [facility] (groups A, C, Y and Branc h W-135) conjugate vaccine (MCV4P) Meningococcal B, 2018-10-07 Completed [facility] Recombinant 00:00:00 [facility] Meningococcal 2018-10-07 Completed [facility] Polysaccharide 00:00:00 [place] [facility] (groups A, C, Y and Branc h W-135) conjugate vaccine (MCV4P) Meningococcal B, 2018-10-07 Completed [facility] Recombinant 00:00:00 [facility] Meningococcal 2018-10-07 Completed [facility] Polysaccharide 00:00:00 [place] [facility] (groups A, C, Y and Branc h W-135) conjugate vaccine (MCV4P) Meningococcal B, 2018-10-07 Completed [facility] Recombinant 00:00:00 [facility] Meningococcal 2018-10-07 Completed [facility] Polysaccharide 00:00:00 [place] [facility] (groups A, C, Y and Branc h W-135) conjugate vaccine (MCV4P) Meningococcal B, 2018-10-07 Completed [facility] Recombinant 00:00:00 [facility] Meningococcal 2018-10-07 Completed [facility] Polysaccharide 00:00:00 [facility] (groups A, C, Y and Branc h W-135) conjugate vaccine (MCV4P) Meningococcal B, 2018-10-07 Completed [facility] Recombinant 00:00:00 [facility] Meningococcal 2018-10-07 Completed [facility] Polysaccharide 00:00:00 [place] [facility] (groups A, C, Y and Branc h W-135) conjugate vaccine (MCV4P) Meningococcal B, 2018-10-07 Completed [facility] Recombinant 00:00:00 [facility] Meningococcal 2018-10-07 Completed [facility] Polysaccharide 00:00:00 [facility] (groups A, C, Y and Branc h W-135) conjugate vaccine (MCV4P) Meningococcal B, 2018-10-07 Completed [facility] Recombinant 00:00:00 [facility] Meningococcal 2018-10-07 Completed [facility] Polysaccharide 00:00:00 [facility] (groups A, C, Y and Branc h W-135) conjugate vaccine (MCV4P) Meningococcal B, 2018-10-07 Completed [facility] Recombinant 00:00:00 [facility] Meningococcal 2018-10-07 Completed [facility] Polysaccharide 00:00:00 [facility] (groups A, C, Y and Branc h W-135) conjugate vaccine (MCV4P) Meningococcal B, 2018-10-07 Completed [facility] Recombinant 00:00:00 [facility] Meningococcal 2018-10-07 Completed [facility] Polysaccharide 00:00:00 [place] [facility] (groups A, C, Y and Branc h W-135) conjugate vaccine (MCV4P) Meningococcal B, 2018-10-07 Completed [facility] Recombinant 00:00:00 [facility] Meningococcal 2018-10-07 Completed [facility] Polysaccharide 00:00:00 [place] [facility] (groups A, C, Y and Branc h W-135) conjugate vaccine (MCV4P) Meningococcal B, 2018-10-07 Completed [facility] Recombinant 00:00:00 [facility] Meningococcal 2018-10-07 Completed [facility] Polysaccharide 00:00:00 [place] [facility] (groups A, C, Y and Branc h W-135) conjugate vaccine (MCV4P) Meningococcal B, 2018-10-07 Completed [facility] Recombinant 00:00:00 [facility] Meningococcal 2018-10-07 Completed [facility] Polysaccharide 00:00:00 [place] [facility] (groups A, C, Y and Branc h W-135) conjugate vaccine (MCV4P) Meningococcal B, 2018-10-07 Completed [facility] Recombinant 00:00:00 [facility] Meningococcal 2018-10-07 Completed [facility] Polysaccharide 00:00:00 [place] [facility] (groups A, C, Y and Branc h W-135) conjugate vaccine (MCV4P) Meningococcal B, 2018-10-07 Completed [facility] Recombinant 00:00:00 [facility] Meningococcal 2018-10-07 Completed [facility] Polysaccharide 00:00:00 [facility] (groups A, C, Y and Branc h W-135) conjugate vaccine (MCV4P) Meningococcal 2018-10-07 Completed [facility] Polysaccharide 00:00:00 [facility] (groups A, C, Y and Branc h W-135) conjugate vaccine (MCV4P) Meningococcal B, 2018-10-07 Completed [facility] Recombinant 00:00:00 [facility] Meningococcal B, 2018-10-07 Completed [facility] Recombinant 00:00:00 [facility] Meningococcal 2018-10-07 Completed [facility] Polysaccharide 00:00:00 [place] [facility] (groups A, C, Y and Branc h W-135) conjugate vaccine (MCV4P) Meningococcal B, 2018-10-07 Completed [facility] Recombinant 00:00:00 [facility] Meningococcal 2018-10-07 Completed [facility] Polysaccharide 00:00:00 [place] [facility] (groups A, C, Y and Branc h W-135) conjugate vaccine (MCV4P) Meningococcal B, 2018-10-07 Completed [facility] Recombinant 00:00:00 [facility] Meningococcal 2018-10-07 Completed [facility] Polysaccharide 00:00:00 [place] [facility] (groups A, C, Y and Branc h W-135) conjugate vaccine (MCV4P) Meningococcal B, 2018-10-07 Completed [facility] Recombinant 00:00:00 [facility] Meningococcal 2018-10-07 Completed [facility] Polysaccharide 00:00:00 [place] [facility] (groups A, C, Y and Branc h W-135) conjugate vaccine (MCV4P) Meningococcal B, 2018-10-07 Completed [facility] Recombinant 00:00:00 [facility] Meningococcal 2018-10-07 Completed [facility] Polysaccharide 00:00:00 [place] [facility] (groups A, C, Y and Branc h W-135) conjugate vaccine (MCV4P) Meningococcal B, 2018-10-07 Completed [facility] Recombinant 00:00:00 [facility] Meningococcal 2018-10-07 Completed [facility] Polysaccharide 00:00:00 [place] [facility] (groups A, C, Y and Branc h W-135) conjugate vaccine (MCV4P) Meningococcal B, 2018-10-07 Completed [facility] Recombinant 00:00:00 [facility] Meningococcal 2018-10-07 Completed [facility] Polysaccharide 00:00:00 [place] [facility] (groups A, C, Y and Branc h W-135) conjugate vaccine (MCV4P) Meningococcal B, 2018-10-07 Completed [facility] Recombinant 00:00:00 [facility] Meningococcal 2018-10-07 Completed [facility] Polysaccharide 00:00:00 [facility] (groups A, C, Y and Branc h W-135) conjugate vaccine (MCV4P) Meningococcal B, 2018-10-07 Completed [facility] Recombinant 00:00:00 [facility] Meningococcal 2018-10-07 Completed [facility] Polysaccharide 00:00:00 [facility] (groups A, C, Y and Branc h W-135) conjugate vaccine (MCV4P) Meningococcal B, 2018-10-07 Completed [facility] Recombinant 00:00:00 [facility] Meningococcal 2018-10-07 Completed [facility] Polysaccharide 00:00:00 [place] [facility] (groups A, C, Y and Branc h W-135) conjugate vaccine (MCV4P) Meningococcal B, 2018-10-07 Completed [facility] Recombinant 00:00:00 [facility] Meningococcal 2018-10-07 Completed [facility] Polysaccharide 00:00:00 [place] [facility] (groups A, C, Y and Branc h W-135) conjugate vaccine (MCV4P) Meningococcal B, 2018-10-07 Completed [facility] Recombinant 00:00:00 [facility] Meningococcal 2018-10-07 Completed [facility] Polysaccharide 00:00:00 [place] [facility] (groups A, C, Y and Branc h W-135) conjugate vaccine (MCV4P) Meningococcal B, 2018-10-07 Completed [facility] Recombinant 00:00:00 [facility] Meningococcal 2018-10-07 Completed [facility] Polysaccharide 00:00:00 [place] [facility] (groups A, C, Y and Branc h W-135) conjugate vaccine (MCV4P) Meningococcal B, 2018-10-07 Completed [facility] Recombinant 00:00:00 [facility] Meningococcal 2018-10-07 Completed [facility] Polysaccharide 00:00:00 [place] [facility] (groups A, C, Y and Branc h W-135) conjugate vaccine (MCV4P) Meningococcal B, 2018-10-07 Completed [facility] Recombinant 00:00:00 [facility] Meningococcal 2018-10-07 Completed [facility] Polysaccharide 00:00:00 [place] [facility] (groups A, C, Y and Branc h W-135) conjugate vaccine (MCV4P) Meningococcal B, 2018-10-07 Completed [facility] Recombinant 00:00:00 [facility] Meningococcal 2018-10-07 Completed [facility] Polysaccharide 00:00:00 [place] [facility] (groups A, C, Y and Branc h W-135) conjugate vaccine (MCV4P) Meningococcal B, 2018-10-07 Completed [facility] Recombinant 00:00:00 [facility] Meningococcal 2018-10-07 Completed [facility] Polysaccharide 00:00:00 [place] [facility] (groups A, C, Y and Branc h W-135) conjugate vaccine (MCV4P) Meningococcal B, 2018-10-07 Completed [facility] Recombinant 00:00:00 [facility] Meningococcal 2018-10-07 Completed [facility] Polysaccharide 00:00:00 [place] [facility] (groups A, C, Y and Branc h W-135) conjugate vaccine (MCV4P) Meningococcal B, 2018-10-07 Completed [facility] Recombinant 00:00:00 [facility] Meningococcal 2018-10-07 Completed [facility] Polysaccharide 00:00:00 [place] [facility] (groups A, C, Y and Branc h W-135) conjugate vaccine (MCV4P) Meningococcal B, 2018-10-07 Completed [facility] Recombinant 00:00:00 [facility] Meningococcal 2018-10-07 Completed [facility] Polysaccharide 00:00:00 [place] [facility] (groups A, C, Y and Branc h W-135) conjugate vaccine (MCV4P) Meningococcal B, 2018-10-07 Completed [facility] Recombinant 00:00:00 [facility] Meningococcal 2018-10-07 Completed [facility] Polysaccharide 00:00:00 [place] [facility] (groups A, C, Y and Branc h W-135) conjugate vaccine (MCV4P) Meningococcal B, 2018-10-07 Completed [facility] Recombinant 00:00:00 [facility] Meningococcal 2018-10-07 Completed [facility] Polysaccharide 00:00:00 [place] [facility] (groups A, C, Y and Branc h W-135) conjugate vaccine (MCV4P) Meningococcal B, 2018-10-07 Completed [facility] Recombinant 00:00:00 [facility] Meningococcal 2018-10-07 Completed [facility] Polysaccharide 00:00:00 [place] [facility] (groups A, C, Y and Branc h W-135) conjugate vaccine (MCV4P) Meningococcal B, 2018-10-07 Completed [facility] Recombinant 00:00:00 [facility] Meningococcal 2018-10-07 Completed [facility] Polysaccharide 00:00:00 [place] [facility] (groups A, C, Y and Branc h W-135) conjugate vaccine (MCV4P) Meningococcal B, 2018-10-07 Completed [facility] Recombinant 00:00:00 [facility] Meningococcal 2018-10-07 Completed [facility] Polysaccharide 00:00:00 [place] [facility] (groups A, C, Y and Branc h W-135) conjugate vaccine (MCV4P) Meningococcal B, 2018-10-07 Completed [facility] Recombinant 00:00:00 [facility] Meningococcal 2018-10-07 Completed [facility] Polysaccharide 00:00:00 [place] [facility] (groups A, C, Y and Branc h W-135) conjugate vaccine (MCV4P) Meningococcal B, 2018-10-07 Completed [facility] Recombinant 00:00:00 [facility] Meningococcal 2018-10-07 Completed [facility] Polysaccharide 00:00:00 [place] [facility] (groups A, C, Y and Branc h W-135) conjugate vaccine (MCV4P) Meningococcal B, 2018-10-07 Completed [facility] Recombinant 00:00:00 [facility] Meningococcal 2018-10-07 Completed [facility] Polysaccharide 00:00:00 [place] [facility] (groups A, C, Y and Branc h W-135) conjugate vaccine (MCV4P) Meningococcal B, 2018-10-07 Completed [facility] Recombinant 00:00:00 [facility] Meningococcal 2018-10-07 Completed [facility] Polysaccharide 00:00:00 [place] [facility] (groups A, C, Y and Branc h W-135) conjugate vaccine (MCV4P) Meningococcal B, 2018-10-07 Completed [facility] Recombinant 00:00:00 [facility] Meningococcal 2018-10-07 Completed [facility] Polysaccharide 00:00:00 [place] [facility] (groups A, C, Y and Branc h W-135) conjugate vaccine (MCV4P) Meningococcal B, 2018-10-07 Completed [facility] Recombinant 00:00:00 [facility] Meningococcal 2018-10-07 Completed [facility] Polysaccharide 00:00:00 [place] [facility] (groups A, C, Y and Branc h W-135) conjugate vaccine (MCV4P) Meningococcal B, 2018-10-07 Completed [facility] Recombinant 00:00:00 [facility] Meningococcal 2018-10-07 Completed [facility] Polysaccharide 00:00:00 [place] [facility] (groups A, C, Y and Branc h W-135) conjugate vaccine (MCV4P) Meningococcal B, 2018-10-07 Completed [facility] Recombinant 00:00:00 [facility] Meningococcal 2018-10-07 Completed [facility] Polysaccharide 00:00:00 [place] [facility] (groups A, C, Y and Branc h W-135) conjugate vaccine (MCV4P) Meningococcal B, 2018-10-07 Completed [facility] Recombinant 00:00:00 [facility] Meningococcal 2018-10-07 Completed [facility] Polysaccharide 00:00:00 [place] [facility] (groups A, C, Y and Branc h W-135) conjugate vaccine (MCV4P) Meningococcal B, 2018-10-07 Completed [facility] Recombinant 00:00:00 [facility] Meningococcal 2018-10-07 Completed [facility] Polysaccharide 00:00:00 [place] [facility] (groups A, C, Y and Branc h W-135) conjugate vaccine (MCV4P) Meningococcal B, 2018-10-07 Completed [facility] Recombinant 00:00:00 [facility] Meningococcal 2018-10-07 Completed [facility] Polysaccharide 00:00:00 [place] [facility] (groups A, C, Y and Branc h W-135) conjugate vaccine (MCV4P) Meningococcal B, 2018-10-07 Completed [facility] Recombinant 00:00:00 [facility] Meningococcal 2018-10-07 Completed [facility] Polysaccharide 00:00:00 [place] [facility] (groups A, C, Y and Branc h W-135) conjugate vaccine (MCV4P) Meningococcal 2018-10-07 Completed [facility] Polysaccharide 00:00:00 [place] [facility] (groups A, C, Y and Branc h W-135) conjugate vaccine (MCV4P) Meningococcal B, 2018-10-07 Completed [facility] Recombinant 00:00:00 [facility] Meningococcal B, 2018-10-07 Completed [facility] Recombinant 00:00:00 [facility] Meningococcal 2018-10-07 Completed [facility] Polysaccharide 00:00:00 [place] [facility] (groups A, C, Y and Branc h W-135) conjugate vaccine (MCV4P) Meningococcal B, 2018-10-07 Completed [facility] Recombinant 00:00:00 [facility] Meningococcal 2018-10-07 Completed [facility] Polysaccharide 00:00:00 [place] [facility] (groups A, C, Y and Branc h W-135) conjugate vaccine (MCV4P) Meningococcal B, 2018-10-07 Completed [facility] Recombinant 00:00:00 [facility] Meningococcal 2018-10-07 Completed [facility] Polysaccharide 00:00:00 [place] [facility] (groups A, C, Y and Branc h W-135) conjugate vaccine (MCV4P) Meningococcal B, 2018-10-07 Completed [facility] Recombinant 00:00:00 [facility] Meningococcal 2018-10-07 Completed [facility] Polysaccharide 00:00:00 [place] [facility] (groups A, C, Y and Branc h W-135) conjugate vaccine (MCV4P) Meningococcal B, 2018-10-07 Completed [facility] Recombinant 00:00:00 [facility] Meningococcal 2018-10-07 Completed [facility] Polysaccharide 00:00:00 [place] [facility] (groups A, C, Y and Branc h W-135) conjugate vaccine (MCV4P) Meningococcal B, 2018-10-07 Completed [facility] Recombinant 00:00:00 [facility] Meningococcal 2018-10-07 Completed [facility] Polysaccharide 00:00:00 [place] [facility] (groups A, C, Y and Branc h W-135) conjugate vaccine (MCV4P) Meningococcal B, 2018-10-07 Completed [facility] Recombinant 00:00:00 [facility] Meningococcal 2018-10-07 Completed [facility] Polysaccharide 00:00:00 [place] [facility] (groups A, C, Y and Branc h W-135) conjugate vaccine (MCV4P) Meningococcal B, 2018-10-07 Completed [facility] Recombinant 00:00:00 [facility] Meningococcal 2018-10-07 Completed [facility] Polysaccharide 00:00:00 [place] [facility] (groups A, C, Y and Branc h W-135) conjugate vaccine (MCV4P) Meningococcal B, 2018-10-07 Completed [facility] Recombinant 00:00:00 [facility] Meningococcal 2018-10-07 Completed [facility] Polysaccharide 00:00:00 [place] [facility] (groups A, C, Y and Branc h W-135) conjugate vaccine (MCV4P) Meningococcal B, 2018-10-07 Completed [facility] Recombinant 00:00:00 [facility] Meningococcal 2018-10-07 Completed [facility] Polysaccharide 00:00:00 [place] [facility] (groups A, C, Y and Branc h W-135) conjugate vaccine (MCV4P) Meningococcal B, 2018-10-07 Completed [facility] Recombinant 00:00:00 [facility] Meningococcal 2018-10-07 Completed [facility] Polysaccharide 00:00:00 [place] [facility] (groups A, C, Y and Branc h W-135) conjugate vaccine (MCV4P) Meningococcal B, 2018-10-07 Completed [facility] Recombinant 00:00:00 [facility] Meningococcal 2018-10-07 Completed [facility] Polysaccharide 00:00:00 [place] [facility] (groups A, C, Y and Branc h W-135) conjugate vaccine (MCV4P) Meningococcal B, 2018-10-07 Completed [facility] Recombinant 00:00:00 [facility] Meningococcal 2018-10-07 Completed [facility] Polysaccharide 00:00:00 [place] [facility] (groups A, C, Y and Branc h W-135) conjugate vaccine (MCV4P) Meningococcal B, 2018-10-07 Completed [facility] Recombinant 00:00:00 [facility] Meningococcal 2018-10-07 Completed [facility] Polysaccharide 00:00:00 [place] [facility] (groups A, C, Y and Branc h W-135) conjugate vaccine (MCV4P) Meningococcal B, 2018-10-07 Completed [facility] Recombinant 00:00:00 [facility] Meningococcal 2018-10-07 Completed [facility] Polysaccharide 00:00:00 [place] [facility] (groups A, C, Y and Branc h W-135) conjugate vaccine (MCV4P) Meningococcal B, 2018-10-07 Completed [facility] Recombinant 00:00:00 [facility] Meningococcal 2018-10-07 Completed [facility] Polysaccharide 00:00:00 [place] [facility] (groups A, C, Y and Branc h W-135) conjugate vaccine (MCV4P) Meningococcal B, 2018-10-07 Completed [facility] Recombinant 00:00:00 [facility] Meningococcal 2018-10-07 Completed [facility] Polysaccharide 00:00:00 [place] [facility] (groups A, C, Y and Branc h W-135) conjugate vaccine (MCV4P) Meningococcal B, 2018-10-07 Completed [facility] Recombinant 00:00:00 [facility] Meningococcal 2018-10-07 Completed [facility] Polysaccharide 00:00:00 [place] [facility] (groups A, C, Y and Branc h W-135) conjugate vaccine (MCV4P) Meningococcal B, 2018-10-07 Completed [facility] Recombinant 00:00:00 [facility] Meningococcal 2018-10-07 Completed [facility] Polysaccharide 00:00:00 [place] [facility] (groups A, C, Y and Branc h W-135) conjugate vaccine (MCV4P) Meningococcal B, 2018-10-07 Completed [facility] Recombinant 00:00:00 [facility] Meningococcal 2018-10-07 Completed [facility] Polysaccharide 00:00:00 [place] [facility] (groups A, C, Y and Branc h W-135) conjugate vaccine (MCV4P) Meningococcal B, 2018-10-07 Completed [facility] Recombinant 00:00:00 [facility] Meningococcal 2018-10-07 Completed [facility] Polysaccharide 00:00:00 [place] [facility] (groups A, C, Y and Branc h W-135) conjugate vaccine (MCV4P) Meningococcal B, 2018-10-07 Completed [facility] Recombinant 00:00:00 [facility] Meningococcal 2018-10-07 Completed [facility] Polysaccharide 00:00:00 [place] [facility] (groups A, C, Y and Branc h W-135) conjugate vaccine (MCV4P) Meningococcal B, 2018-10-07 Completed [facility] Recombinant 00:00:00 [facility] Meningococcal 2018-10-07 Completed [facility] Polysaccharide 00:00:00 [place] [facility] (groups A, C, Y and Branc h W-135) conjugate vaccine (MCV4P) Meningococcal B, 2018-10-07 Completed [facility] Recombinant 00:00:00 [facility] Meningococcal 2018-10-07 Completed [facility] Polysaccharide 00:00:00 [place] [facility] (groups A, C, Y and Branc h W-135) conjugate vaccine (MCV4P) Meningococcal B, 2018-10-07 Completed [facility] Recombinant 00:00:00 [facility] Meningococcal 2018-10-07 Completed [facility] Polysaccharide 00:00:00 [place] [facility] (groups A, C, Y and Branc h W-135) conjugate vaccine (MCV4P) Meningococcal B, 2018-10-07 Completed [facility] Recombinant 00:00:00 [facility] Meningococcal 2018-10-07 Completed [facility] Polysaccharide 00:00:00 [place] [facility] (groups A, C, Y and Branc h W-135) conjugate vaccine (MCV4P) Meningococcal B, 2018-10-07 Completed [facility] Recombinant 00:00:00 [facility] Meningococcal 2018-10-07 Completed [facility] Polysaccharide 00:00:00 [place] [facility] (groups A, C, Y and Branc h W-135) conjugate vaccine (MCV4P) Meningococcal B, 2018-10-07 Completed [facility] Recombinant 00:00:00 [facility] Meningococcal 2018-10-07 Completed [facility] Polysaccharide 00:00:00 [place] [facility] (groups A, C, Y and Branc h W-135) conjugate vaccine (MCV4P) Meningococcal B, 2018-10-07 Completed [facility] Recombinant 00:00:00 [facility] Meningococcal 2018-10-07 Completed [facility] Polysaccharide 00:00:00 [place] [facility] (groups A, C, Y and Branc h W-135) conjugate vaccine (MCV4P) Meningococcal B, 2018-10-07 Completed [facility] Recombinant 00:00:00 [facility] Meningococcal 2018-10-07 Completed [facility] Polysaccharide 00:00:00 [place] [facility] (groups A, C, Y and Branc h W-135) conjugate vaccine (MCV4P) Meningococcal B, 2018-10-07 Completed [facility] Recombinant 00:00:00 [facility] Meningococcal 2018-10-07 Completed [facility] Polysaccharide 00:00:00 [place] [facility] (groups A, C, Y and Branc h W-135) conjugate vaccine (MCV4P) Meningococcal B, 2018-10-07 Completed [facility] Recombinant 00:00:00 [facility] Meningococcal 2018-10-07 Completed [facility] Polysaccharide 00:00:00 [place] [facility] (groups A, C, Y and Branc h W-135) conjugate vaccine (MCV4P) Meningococcal B, 2018-10-07 Completed [facility] Recombinant 00:00:00 [facility] Meningococcal 2018-10-07 Completed [facility] Polysaccharide 00:00:00 [place] [facility] (groups A, C, Y and Branc h W-135) conjugate vaccine (MCV4P) Meningococcal B, 2018-10-07 Completed [facility] Recombinant 00:00:00 [facility] Meningococcal 2018-10-07 Completed [facility] Polysaccharide 00:00:00 [place] [facility] (groups A, C, Y and Branc h W-135) conjugate vaccine (MCV4P) Meningococcal B, 2018-10-07 Completed [facility] Recombinant 00:00:00 [facility] Meningococcal 2018-10-07 Completed [facility] Polysaccharide 00:00:00 [facility] (groups A, C, Y and Branc h W-135) conjugate vaccine (MCV4P) Meningococcal B, 2018-10-07 Completed [facility] Recombinant 00:00:00 [facility] Influenza Virus 2018-04-06 Completed [facility] [...] Meningococcal 2013-04-18 Completed [facility] Polysaccharide 00:00:00 [place] [facility] (groups A, C, Y and Branc h W-135) conjugate vaccine (MCV4P) Tdap 2013-04-18 Completed [facility] 00:00:00 [facility] Meningococcal 2013-04-18 Completed [facility] Polysaccharide 00:00:00 [place] [facility] (groups A, C, Y and Branc h W-135) conjugate vaccine (MCV4P) Meningococcal 2013-04-18 Completed [facility] Polysaccharide 00:00:00 [place] [facility] (groups A, C, Y and Branc h W-135) conjugate vaccine (MCV4P) Tdap 2013-04-18 Completed [facility] 00:00:00 [facility] Meningococcal 2013-04-18 Completed [facility] Polysaccharide 00:00:00 [place] [facility] (groups A, C, Y and Branc h W-135) conjugate vaccine (MCV4P) Tdap 2013-04-18 Completed [facility] 00:00:00 [facility] Tdap 2013-04-18 Completed [facility] 00:00:00 [facility] Meningococcal 2013-04-18 Completed [facility] Polysaccharide 00:00:00 [place] [facility] (groups A, C, Y and Branc h W-135) conjugate vaccine (MCV4P) Tdap 2013-04-18 Completed [facility] 00:00:00 [facility] Meningococcal 2013-04-18 Completed [facility] Polysaccharide 00:00:00 [place] [facility] (groups A, C, Y and Branc h W-135) conjugate vaccine (MCV4P) Tdap 2013-04-18 Completed [facility] 00:00:00 [facility] Meningococcal 2013-04-18 Completed [facility] Polysaccharide 00:00:00 [place] [facility] (groups A, C, Y and Branc h W-135) conjugate vaccine (MCV4P) Tdap 2013-04-18 Completed [facility] 00:00:00 [facility] Meningococcal 2013-04-18 Completed [facility] Polysaccharide 00:00:00 [place] [facility] (groups A, C, Y and Branc h W-135) conjugate vaccine (MCV4P) Tdap 2013-04-18 Completed [facility] 00:00:00 [facility] Meningococcal 2013-04-18 Completed [facility] Polysaccharide 00:00:00 [place] [facility] (groups A, C, Y and Branc h W-135) conjugate vaccine (MCV4P) Tdap 2013-04-18 Completed [facility] 00:00:00 [facility] Meningococcal 2013-04-18 Completed [facility] Polysaccharide 00:00:00 [place] [facility] (groups A, C, Y and Branc h W-135) conjugate vaccine (MCV4P) TDAP 2013-04-18 Completed [facility] 00:00:00 [facility] Meningococcal 2013-04-18 Completed [facility] Polysaccharide 00:00:00 [place] [facility] (groups A, C, Y and Branc h W-135) conjugate vaccine (MCV4P) TDAP 2013-04-18 Completed [facility] 00:00:00 [facility] Meningococcal 2013-04-18 Completed [facility] Polysaccharide 00:00:00 [place] [facility] (groups A, C, Y and Branc h W-135) conjugate vaccine (MCV4P) Meningococcal 2013-04-18 Completed [facility] Polysaccharide 00:00:00 [place] [facility] (groups A, C, Y and Branc h W-135) conjugate vaccine (MCV4P) TDAP 2013-04-18 Completed [facility] 00:00:00 [facility] Meningococcal 2013-04-18 Completed [facility] Polysaccharide 00:00:00 [place] [facility] (groups A, C, Y and Branc h W-135) conjugate vaccine (MCV4P) TDAP 2013-04-18 Completed [facility] 00:00:00 [facility] Tdap 2013-04-18 Completed [facility] 00:00:00 [facility] Meningococcal 2013-04-18 Completed [facility] Polysaccharide 00:00:00 [place] [facility] (groups A, C, Y and Branc h W-135) conjugate vaccine (MCV4P) TDAP 2013-04-18 Completed [facility] 00:00:00 [facility] Meningococcal 2013-04-18 Completed [facility] Polysaccharide 00:00:00 [place] [facility] (groups A, C, Y and Branc h W-135) conjugate vaccine (MCV4P) TDAP 2013-04-18 Completed [facility] 00:00:00 [facility] Meningococcal 2013-04-18 Completed [facility] Polysaccharide 00:00:00 [place] [facility] (groups A, C, Y and Branc h W-135) conjugate vaccine (MCV4P) TDAP 2013-04-18 Completed [facility] 00:00:00 [facility] Meningococcal 2013-04-18 Completed [facility] Polysaccharide 00:00:00 [place] [facility] (groups A, C, Y and Branc h W-135) conjugate vaccine (MCV4P) TDAP 2013-04-18 Completed [facility] 00:00:00 [facility] Meningococcal 2013-04-18 Completed [facility] Polysaccharide 00:00:00 [place] [facility] (groups A, C, Y and Branc h W-135) conjugate vaccine (MCV4P) TDAP 2013-04-18 Completed [facility] 00:00:00 [facility] Meningococcal 2013-04-18 Completed [facility] Polysaccharide 00:00:00 [place] [facility] (groups A, C, Y and Branc h W-135) conjugate vaccine (MCV4P) TDAP 2013-04-18 Completed [facility] 00:00:00 [facility] Meningococcal 2013-04-18 Completed [facility] Polysaccharide 00:00:00 [place] [facility] (groups A, C, Y and Branc h W-135) conjugate vaccine (MCV4P) TDAP 2013-04-18 Completed [facility] 00:00:00 [facility] Meningococcal 2013-04-18 Completed [facility] Polysaccharide 00:00:00 [place] [facility] (groups A, C, Y and Branc h W-135) conjugate vaccine (MCV4P) TDAP 2013-04-18 Completed [facility] 00:00:00 [facility] Meningococcal 2013-04-18 Completed [facility] Polysaccharide 00:00:00 [place] [facility] (groups A, C, Y and Branc h W-135) conjugate vaccine (MCV4P) TDAP 2013-04-18 Completed [facility] 00:00:00 [facility] Meningococcal 2013-04-18 Completed [facility] Polysaccharide 00:00:00 [place] [facility] (groups A, C, Y and Branc h W-135) conjugate vaccine (MCV4P) Meningococcal 2013-04-18 Completed [facility] Polysaccharide 00:00:00 [place] [facility] (groups A, C, Y and Branc h W-135) conjugate vaccine (MCV4P) TDAP 2013-04-18 Completed [facility] 00:00:00 [facility] Meningococcal 2013-04-18 Completed [facility] Polysaccharide 00:00:00 [place] [facility] (groups A, C, Y and Branc h W-135) conjugate vaccine (MCV4P) Tdap 2013-04-18 Completed [facility] 00:00:00 [facility] TDAP 2013-04-18 Completed [facility] 00:00:00 [facility] Meningococcal 2013-04-18 Completed [facility] Polysaccharide 00:00:00 [place] [facility] (groups A, C, Y and Branc h W-135) conjugate vaccine (MCV4P) TDAP 2013-04-18 Completed [facility] 00:00:00 [facility] Meningococcal 2013-04-18 Completed [facility] Polysaccharide 00:00:00 [place] [facility] (groups A, C, Y and Branc h W-135) conjugate vaccine (MCV4P) TDAP 2013-04-18 Completed [facility] 00:00:00 [facility] Meningococcal 2013-04-18 Completed [facility] Polysaccharide 00:00:00 [place] [facility] (groups A, C, Y and Branc h W-135) conjugate vaccine (MCV4P) TDAP 2013-04-18 Completed [facility] 00:00:00 [facility] Meningococcal 2013-04-18 Completed [facility] Polysaccharide 00:00:00 [place] [facility] (groups A, C, Y and Branc h W-135) conjugate vaccine (MCV4P) TDAP 2013-04-18 Completed [facility] 00:00:00 [facility] Meningococcal 2013-04-18 Completed [facility] Polysaccharide 00:00:00 [place] [facility] (groups A, C, Y and Branc h W-135) conjugate vaccine (MCV4P) TDAP 2013-04-18 Completed [facility] 00:00:00 [facility] Meningococcal 2013-04-18 Completed [facility] Polysaccharide 00:00:00 [place] [facility] (groups A, C, Y and Branc h W-135) conjugate vaccine (MCV4P) TDAP 2013-04-18 Completed [facility] 00:00:00 [facility] Meningococcal 2013-04-18 Completed [facility] Polysaccharide 00:00:00 [place] [facility] (groups A, C, Y and Branc h W-135) conjugate vaccine (MCV4P) Meningococcal 2013-04-18 Completed [facility] Polysaccharide 00:00:00 [place] [facility] (groups A, C, Y and Branc h W-135) conjugate vaccine (MCV4P) TDAP 2013-04-18 Completed [facility] 00:00:00 [facility] Tdap 2013-04-18 Completed [facility] 00:00:00 [facility] Meningococcal 2013-04-18 Completed [facility] Polysaccharide 00:00:00 [place] [facility] (groups A, C, Y and Branc h W-135) conjugate vaccine (MCV4P) TDAP 2013-04-18 Completed [facility] 00:00:00 [facility] Meningococcal 2013-04-18 Completed [facility] Polysaccharide 00:00:00 [place] [facility] (groups A, C, Y and Branc h W-135) conjugate vaccine (MCV4P) TDAP 2013-04-18 Completed [facility] 00:00:00 [facility] Meningococcal 2013-04-18 Completed [facility] Polysaccharide 00:00:00 [place] [facility] (groups A, C, Y and Branc h W-135) conjugate vaccine (MCV4P) TDAP 2013-04-18 Completed [facility] 00:00:00 [facility] Meningococcal 2013-04-18 Completed [facility] Polysaccharide 00:00:00 [place] [facility] (groups A, C, Y and Branc h W-135) conjugate vaccine (MCV4P) TDAP 2013-04-18 Completed [facility] 00:00:00 [facility] Meningococcal 2013-04-18 Completed [facility] Polysaccharide 00:00:00 [place] [facility] (groups A, C, Y and Branc h W-135) conjugate vaccine (MCV4P) TDAP 2013-04-18 Completed [facility] 00:00:00 [facility] Meningococcal 2013-04-18 Completed [facility] Polysaccharide 00:00:00 [place] [facility] (groups A, C, Y and Branc h W-135) conjugate vaccine (MCV4P) TDAP 2013-04-18 Completed [facility] 00:00:00 [facility] Meningococcal 2013-04-18 Completed [facility] Polysaccharide 00:00:00 [place] [facility] (groups A, C, Y and Branc h W-135) conjugate vaccine (MCV4P) TDAP 2013-04-18 Completed [facility] 00:00:00 [facility] Meningococcal 2013-04-18 Completed [facility] Polysaccharide 00:00:00 [place] [facility] (groups A, C, Y and Branc h W-135) conjugate vaccine (MCV4P) TDAP 2013-04-18 Completed [facility] 00:00:00 [facility] Meningococcal 2013-04-18 Completed [facility] Polysaccharide 00:00:00 [place] [facility] (groups A, C, Y and Branc h W-135) conjugate vaccine (MCV4P) Meningococcal 2013-04-18 Completed [facility] Polysaccharide 00:00:00 [place] [facility] (groups A, C, Y and Branc h W-135) conjugate vaccine (MCV4P) TDAP 2013-04-18 Completed [facility] 00:00:00 [facility] Meningococcal 2013-04-18 Completed [facility] Polysaccharide 00:00:00 [place] [facility] (groups A, C, Y and Branc h W-135) conjugate vaccine (MCV4P) TDAP 2013-04-18 Completed [facility] 00:00:00 [facility] Tdap 2013-04-18 Completed [facility] 00:00:00 [facility] Meningococcal 2013-04-18 Completed [facility] Polysaccharide 00:00:00 [place] [facility] (groups A, C, Y and Branc h W-135) conjugate vaccine (MCV4P) TDAP 2013-04-18 Completed [facility] 00:00:00 [facility] Meningococcal 2013-04-18 Completed [facility] Polysaccharide 00:00:00 [place] [facility] (groups A, C, Y and Branc h W-135) conjugate vaccine (MCV4P) TDAP 2013-04-18 Completed [facility] 00:00:00 [facility] Meningococcal 2013-04-18 Completed [facility] Polysaccharide 00:00:00 [place] [facility] (groups A, C, Y and Branc h W-135) conjugate vaccine (MCV4P) TDAP 2013-04-18 Completed [facility] 00:00:00 [facility] Meningococcal 2013-04-18 Completed [facility] Polysaccharide 00:00:00 [place] [facility] (groups A, C, Y and Branc h W-135) conjugate vaccine (MCV4P) TDAP 2013-04-18 Completed [facility] 00:00:00 [facility] Meningococcal 2013-04-18 Completed [facility] Polysaccharide 00:00:00 [place] [facility] (groups A, C, Y and Branc h W-135) conjugate vaccine (MCV4P) Meningococcal 2013-04-18 Completed [facility] Polysaccharide 00:00:00 [place] [facility] (groups A, C, Y and Branc h W-135) conjugate vaccine (MCV4P) TDAP 2013-04-18 Completed [facility] 00:00:00 [facility] Meningococcal 2013-04-18 Completed [facility] Polysaccharide 00:00:00 [place] [facility] (groups A, C, Y and Branc h W-135) conjugate vaccine (MCV4P) TDAP 2013-04-18 Completed [facility] 00:00:00 [facility] Tdap 2013-04-18 Completed [facility] 00:00:00 [facility] Meningococcal 2013-04-18 Completed [facility] Polysaccharide 00:00:00 [place] [facility] (groups A, C, Y and Branc h W-135) conjugate vaccine (MCV4P) TDAP 2013-04-18 Completed [facility] 00:00:00 [facility] Meningococcal 2013-04-18 Completed [facility] Polysaccharide 00:00:00 [place] [facility] (groups A, C, Y and Branc h W-135) conjugate vaccine (MCV4P) TDAP 2013-04-18 Completed [facility] 00:00:00 [facility] Meningococcal 2013-04-18 Completed [facility] Polysaccharide 00:00:00 [place] [facility] (groups A, C, Y and Branc h W-135) conjugate vaccine (MCV4P) TDAP 2013-04-18 Completed [facility] 00:00:00 [facility] Meningococcal 2013-04-18 Completed [facility] Polysaccharide 00:00:00 [place] [facility] (groups A, C, Y and Branc h W-135) conjugate vaccine (MCV4P) TDAP 2013-04-18 Completed [facility] 00:00:00 [facility] Meningococcal 2013-04-18 Completed [facility] Polysaccharide 00:00:00 [place] [facility] (groups A, C, Y and Branc h W-135) conjugate vaccine (MCV4P) TDAP 2013-04-18 Completed [facility] 00:00:00 [facility] Meningococcal 2013-04-18 Completed [facility] Polysaccharide 00:00:00 [place] [facility] (groups A, C, Y and Branc h W-135) conjugate vaccine (MCV4P) TDAP 2013-04-18 Completed [facility] 00:00:00 [facility] Meningococcal 2013-04-18 Completed [facility] Polysaccharide 00:00:00 [place] [facility] (groups A, C, Y and Branc h W-135) conjugate vaccine (MCV4P) Meningococcal 2013-04-18 Completed [facility] Polysaccharide 00:00:00 [place] [facility] (groups A, C, Y and Branc h W-135) conjugate vaccine (MCV4P) TDAP 2013-04-18 Completed [facility] 00:00:00 [facility] Meningococcal 2013-04-18 Completed [facility] Polysaccharide 00:00:00 [place] [facility] (groups A, C, Y and Branc h W-135) conjugate vaccine (MCV4P) TDAP 2013-04-18 Completed [facility] 00:00:00 [facility] Tdap 2013-04-18 Completed [facility] 00:00:00 [facility] Meningococcal 2013-04-18 Completed [facility] Polysaccharide 00:00:00 [place] [facility] (groups A, C, Y and Branc h W-135) conjugate vaccine (MCV4P) TDAP 2013-04-18 Completed [facility] 00:00:00 [facility] Meningococcal 2013-04-18 Completed [facility] Polysaccharide 00:00:00 [place] [facility] (groups A, C, Y and Branc h W-135) conjugate vaccine (MCV4P) TDAP 2013-04-18 Completed [facility] 00:00:00 [facility] Meningococcal 2013-04-18 Completed [facility] Polysaccharide 00:00:00 [place] [facility] (groups A, C, Y and Branc h W-135) conjugate vaccine (MCV4P) TDAP 2013-04-18 Completed [facility] 00:00:00 [facility] Meningococcal 2013-04-18 Completed [facility] Polysaccharide 00:00:00 [place] [facility] (groups A, C, Y and Branc h W-135) conjugate vaccine (MCV4P) TDAP 2013-04-18 Completed [facility] 00:00:00 [facility] Meningococcal 2013-04-18 Completed [facility] Polysaccharide 00:00:00 [place] [facility] (groups A, C, Y and Branc h W-135) conjugate vaccine (MCV4P) TDAP 2013-04-18 Completed [facility] 00:00:00 [facility] Meningococcal 2013-04-18 Completed [facility] Polysaccharide 00:00:00 [place] [facility] (groups A, C, Y and Branc h W-135) conjugate vaccine (MCV4P) TDAP 2013-04-18 Completed [facility] 00:00:00 [facility] Meningococcal 2013-04-18 Completed [facility] Polysaccharide 00:00:00 [place] [facility] (groups A, C, Y and Branc h W-135) conjugate vaccine (MCV4P) TDAP 2013-04-18 Completed [facility] 00:00:00 [facility] Meningococcal 2013-04-18 Completed [facility] Polysaccharide 00:00:00 [place] [facility] (groups A, C, Y and Branc h W-135) conjugate vaccine (MCV4P) Meningococcal 2013-04-18 Completed [facility] Polysaccharide 00:00:00 [place] [facility] (groups A, C, Y and Branc h W-135) conjugate vaccine (MCV4P) TDAP 2013-04-18 Completed [facility] 00:00:00 [facility] Tdap 2013-04-18 Completed [facility] 00:00:00 [facility] Meningococcal 2013-04-18 Completed [facility] Polysaccharide 00:00:00 [place] [facility] (groups A, C, Y and Branc h W-135) conjugate vaccine (MCV4P) TDAP 2013-04-18 Completed [facility] 00:00:00 [facility] Meningococcal 2013-04-18 Completed [facility] Polysaccharide 00:00:00 [place] [facility] (groups A, C, Y and Branc h W-135) conjugate vaccine (MCV4P) TDAP 2013-04-18 Completed [facility] 00:00:00 [facility] Meningococcal 2013-04-18 Completed [facility] Polysaccharide 00:00:00 [place] [facility] (groups A, C, Y and Branc h W-135) conjugate vaccine (MCV4P) TDAP 2013-04-18 Completed [facility] 00:00:00 [facility] Meningococcal 2013-04-18 Completed [facility] Polysaccharide 00:00:00 [place] [facility] (groups A, C, Y and Branc h W-135) conjugate vaccine (MCV4P) Tdap 2013-04-18 Completed [facility] 00:00:00 [facility] Meningococcal 2013-04-18 Completed [facility] Polysaccharide 00:00:00 [place] [facility] (groups A, C, Y and Branc h W-135) conjugate vaccine (MCV4P) Tdap 2013-04-18 Completed [facility] 00:00:00 [facility] Meningococcal 2013-04-18 Completed [facility] Polysaccharide 00:00:00 [place] [facility] (groups A, C, Y and Branc h W-135) conjugate vaccine (MCV4P) Tdap 2013-04-18 Completed [facility] 00:00:00 [facility] Meningococcal 2013-04-18 Completed [facility] Polysaccharide 00:00:00 [place] [facility] (groups A, C, Y and Branc h W-135) conjugate vaccine (MCV4P) Tdap 2013-04-18 Completed [facility] 00:00:00 [facility] Meningococcal 2013-04-18 Completed [facility] Polysaccharide 00:00:00 [place] [facility] (groups A, C, Y and Branc h W-135) conjugate vaccine (MCV4P) Tdap 2013-04-18 Completed [facility] 00:00:00 [facility] Meningococcal 2013-04-18 Completed [facility] Polysaccharide 00:00:00 [place] [facility] (groups A, C, Y and Branc h W-135) conjugate vaccine (MCV4P) Meningococcal 2013-04-18 Completed [facility] Polysaccharide 00:00:00 [place] [facility] (groups A, C, Y and Branc h W-135) conjugate vaccine (MCV4P) Tdap 2013-04-18 Completed [facility] 00:00:00 [facility] Tdap 2013-04-18 Completed [facility] 00:00:00 [facility] Meningococcal 2013-04-18 Completed [facility] Polysaccharide 00:00:00 [place] [facility] (groups A, C, Y and Branc h W-135) conjugate vaccine (MCV4P) Tdap 2013-04-18 Completed [facility] 00:00:00 [facility] Meningococcal 2013-04-18 Completed [facility] Polysaccharide 00:00:00 [place] [facility] (groups A, C, Y and Branc h W-135) conjugate vaccine (MCV4P) Tdap 2013-04-18 Completed [facility] 00:00:00 [facility] Meningococcal 2013-04-18 Completed [facility] Polysaccharide 00:00:00 [place] [facility] (groups A, C, Y and Branc h W-135) conjugate vaccine (MCV4P) Tdap 2013-04-18 Completed [facility] 00:00:00 [facility] Meningococcal 2013-04-18 Completed [facility] Polysaccharide 00:00:00 [place] [facility] (groups A, C, Y and Branc h W-135) conjugate vaccine (MCV4P) Tdap 2013-04-18 Completed [facility] 00:00:00 [facility] Meningococcal 2013-04-18 Completed [facility] Polysaccharide 00:00:00 [place] [facility] (groups A, C, Y and Branc h W-135) conjugate vaccine (MCV4P) Tdap 2013-04-18 Completed [facility] 00:00:00 [facility] Meningococcal 2013-04-18 Completed [facility] Polysaccharide 00:00:00 [place] [facility] (groups A, C, Y and Branc h W-135) conjugate vaccine (MCV4P) Tdap 2013-04-18 Completed [facility] 00:00:00 [facility] Meningococcal 2013-04-18 Completed [facility] Polysaccharide 00:00:00 [place] [facility] (groups A, C, Y and Branc h W-135) conjugate vaccine (MCV4P) Tdap 2013-04-18 Completed [facility] 00:00:00 [facility] Meningococcal 2013-04-18 Completed [facility] Polysaccharide 00:00:00 [place] [facility] (groups A, C, Y and Branc h W-135) conjugate vaccine (MCV4P) Tdap 2013-04-18 Completed [facility] 00:00:00 [facility] Meningococcal 2013-04-18 Completed [facility] Polysaccharide 00:00:00 [...] Branch HPV 2011-04-07 Completed [facility] 00:00:00 [facility] HPV 2011-04-07 Completed [facility] 00:00:00 [facility] HPV 2011-04-07 Completed [facility] 00:00:00 [facility] Polio (IPV/OPV) 2006-04-20 Completed [facility] 00:00:00 [facility] Varicella 2006-04-20 Completed [facility] (varivax)(chicken 00:00:00 [place] [facility] pox) [facility] DTAP 2006-04-20 Completed [facility] 00:00:00 [facility] MMR 2006-04-20 Completed [facility] 00:00:00 [facility] Polio (IPV/OPV) 2006-04-20 Completed [facility] 00:00:00 [facility] Varicella 2006-04-20 Completed [facility] (varivax)(chicken 00:00:00 [place] [facility] pox) [facility] DTAP 2006-04-20 Completed [facility] 00:00:00 [facility] MMR 2006-04-20 Completed [facility] 00:00:00 [facility] Polio (IPV/OPV) 2006-04-20 Completed [facility] 00:00:00 [facility] Polio (IPV/OPV) 2006-04-20 Completed [facility] 00:00:00 [facility] Varicella 2006-04-20 Completed [facility] (varivax)(chicken 00:00:00 [place] [facility] pox) [facility] DTAP 2006-04-20 Completed [facility] 00:00:00 [facility] MMR 2006-04-20 Completed [facility] 00:00:00 [facility] Varicella 2006-04-20 Completed [facility] (varivax)(chicken 00:00:00 [place] [facility] pox) [facility] DTAP 2006-04-20 Completed [facility] 00:00:00 [facility] MMR 2006-04-20 Completed [facility] 00:00:00 [facility] Polio (IPV/OPV) 2006-04-20 Completed [facility] 00:00:00 [facility] Varicella 2006-04-20 Completed [facility] (varivax)(chicken 00:00:00 [place] [facility] pox) Branch DTAP 2006-04-20 Completed [facility] 00:00:00 [facility] MMR 2006-04-20 Completed [facility] 00:00:00 [facility] Polio (IPV/OPV) 2006-04-20 Completed [facility] 00:00:00 [facility] Varicella 2006-04-20 Completed [facility] (varivax)(chicken 00:00:00 [place] [facility] pox) Branch DTAP 2006-04-20 Completed [facility] 00:00:00 [facility] MMR 2006-04-20 Completed [facility] 00:00:00 [facility] Polio (IPV/OPV) 2006-04-20 Completed [facility] 00:00:00 [facility] Varicella 2006-04-20 Completed [facility] (varivax)(chicken 00:00:00 [place] [facility] pox) Branch DTAP 2006-04-20 Completed [facility] 00:00:00 [facility] MMR 2006-04-20 Completed [facility] 00:00:00 [facility] Polio (IPV/OPV) 2006-04-20 Completed [facility] 00:00:00 [facility] Varicella 2006-04-20 Completed [facility] (varivax)(chicken 00:00:00 [place] [facility] pox) [facility] DTAP 2006-04-20 Completed [facility] 00:00:00 [facility] MMR 2006-04-20 Completed [facility] 00:00:00 [facility] Polio (IPV/OPV) 2006-04-20 Completed [facility] of 00:00:00 [facility] Varicella 2006-04-20 Completed [facility] (varivax)(chicken 00:00:00 [place] [facility] pox) [facility] DTAP 2006-04-20 Completed [facility] 00:00:00 [facility] MMR 2006-04-20 Completed [facility] 00:00:00 [facility] Polio (IPV/OPV) 2006-04-20 Completed [facility] 00:00:00 [facility] Varicella 2006-04-20 Completed [facility] (varivax)(chicken 00:00:00 [place] [facility] pox) [facility] DTAP 2006-04-20 Completed [facility] 00:00:00 [facility] MMR 2006-04-20 Completed [facility] 00:00:00 [facility] Polio (IPV/OPV) 2006-04-20 Completed [facility] 00:00:00 [facility] Varicella 2006-04-20 Completed [facility] (varivax)(chicken 00:00:00 [place] [facility] pox) [facility] DTAP 2006-04-20 Completed [facility] 00:00:00 [facility] MMR 2006-04-20 Completed [facility] 00:00:00 [facility] Polio (IPV/OPV) 2006-04-20 Completed [facility] 00:00:00 [facility] Varicella 2006-04-20 Completed [facility] (varivax)(chicken 00:00:00 [place] [facility] pox) Branch DTAP 2006-04-20 Completed [facility] 00:00:00 [facility] MMR 2006-04-20 Completed [facility] 00:00:00 [facility] Polio (IPV/OPV) 2006-04-20 Completed [facility] of 00:00:00 [facility] Polio (IPV/OPV) 2006-04-20 Completed [facility] of 00:00:00 [facility] Varicella 2006-04-20 Completed [facility] (varivax)(chicken 00:00:00 [place] [facility] pox) [facility] DTAP 2006-04-20 Completed [facility] 00:00:00 [facility] MMR 2006-04-20 Completed [facility] of 00:00:00 [facility] Varicella 2006-04-20 Completed [facility] of (varivax)(chicken 00:00:00 [facility] edical pox) Branch DTAP 2006-04-20 Completed [facility] of 00:00:00 [facility] Polio (IPV/OPV) 2006-04-20 Completed [facility]it [facility] of 00:00:00 [facility] Varicella 2006-04-20 Completed [facility] (varivax)(chicken 00:00:00 [place] [facility] pox) [facility] DTAP 2006-04-20 Completed [facility] 00:00:00 [facility] MMR 2006-04-20 Completed [facility] 00:00:00 [facility] MMR 2006-04-20 Completed [facility] 00:00:00 [facility] Polio (IPV/OPV) 2006-04-20 Completed [facility] of 00:00:00 [facility] Varicella 2006-04-20 Completed [facility] (varivax)(chicken 00:00:00 [place] [facility] pox) Branch DTAP 2006-04-20 Completed [facility] 00:00:00 [facility] MMR 2006-04-20 Completed [facility] 00:00:00 [facility] Polio (IPV/OPV) 2006-04-20 Completed [facility] 00:00:00 [facility] Varicella 2006-04-20 Completed [facility] (varivax)(chicken 00:00:00 [place] [facility] pox) Branch DTAP 2006-04-20 Completed [facility] 00:00:00 [facility] MMR 2006-04-20 Completed [facility] 00:00:00 [facility] Polio (IPV/OPV) 2006-04-20 Completed [facility] of 00:00:00 [facility] Varicella 2006-04-20 Completed [facility] (varivax)(chicken 00:00:00 [place] [facility] pox) Branch DTAP 2006-04-20 Completed [facility] 00:00:00 [facility] MMR 2006-04-20 Completed [facility] 00:00:00 [facility] Polio (IPV/OPV) 2006-04-20 Completed [facility] 00:00:00 [facility] Varicella 2006-04-20 Completed [facility] (varivax)(chicken 00:00:00 [place] [facility] pox) Branch DTAP 2006-04-20 Completed [facility] 00:00:00 [facility] MMR 2006-04-20 Completed [facility] 00:00:00 [facility] Polio (IPV/OPV) 2006-04-20 Completed [facility] 00:00:00 [facility] Varicella 2006-04-20 Completed [facility] (varivax)(chicken 00:00:00 [place] [facility] pox) Branch DTAP 2006-04-20 Completed [facility] 00:00:00 [facility] MMR 2006-04-20 Completed [facility] 00:00:00 [facility] Polio (IPV/OPV) 2006-04-20 Completed [facility] 00:00:00 [facility] Varicella 2006-04-20 Completed [facility] (varivax)(chicken 00:00:00 [place] [facility] pox) Branch DTAP 2006-04-20 Completed [facility] 00:00:00 [facility] MMR 2006-04-20 Completed [facility] 00:00:00 [facility] Polio (IPV/OPV) 2006-04-20 Completed [facility] 00:00:00 [facility] Varicella 2006-04-20 Completed [facility] (varivax)(chicken 00:00:00 [place] [facility] pox) Branch DTAP 2006-04-20 Completed [facility] 00:00:00 [facility] MMR 2006-04-20 Completed [facility] 00:00:00 [facility] Polio (IPV/OPV) 2006-04-20 Completed [facility] 00:00:00 [facility] Varicella 2006-04-20 Completed [facility] (varivax)(chicken 00:00:00 [place] [facility] pox) Branch DTAP 2006-04-20 Completed [facility] 00:00:00 [facility] MMR 2006-04-20 Completed [facility] 00:00:00 [facility] Polio (IPV/OPV) 2006-04-20 Completed [facility]it [facility] of 00:00:00 [facility] Varicella 2006-04-20 Completed [facility] of (varivax)(chicken 00:00:00 [facility] edical pox) Branch DTAP 2006-04-20 Completed [facility] of 00:00:00 [facility] MMR 2006-04-20 Completed [facility] 00:00:00 [facility] Polio (IPV/OPV) 2006-04-20 Completed [facility]it [facility] 00:00:00 [facility] Polio (IPV/OPV) 2006-04-20 Completed [facility] of 00:00:00 [facility] Varicella 2006-04-20 Completed [facility] (varivax)(chicken 00:00:00 [place] [facility] pox) Branch DTAP 2006-04-20 Completed [facility] 00:00:00 [facility] MMR 2006-04-20 Completed [facility] 00:00:00 [facility] Varicella 2006-04-20 Completed [facility] (varivax)(chicken 00:00:00 [place] [facility] pox) Branch DTAP 2006-04-20 Completed [facility] 00:00:00 [facility] MMR 2006-04-20 Completed [facility] 00:00:00 [facility] Polio (IPV/OPV) 2006-04-20 Completed [facility] 00:00:00 [facility] Varicella 2006-04-20 Completed [facility] (varivax)(chicken 00:00:00 [place] [facility] pox) Branch DTAP 2006-04-20 Completed [facility] 00:00:00 [facility] MMR 2006-04-20 Completed [facility] 00:00:00 [facility] Polio (IPV/OPV) 2006-04-20 Completed Univers[facility] of 00:00:00 [facility] Varicella 2006-04-20 Completed [facility] (varivax)(chicken 00:00:00 [place] [facility] pox) Branch DTAP 2006-04-20 Completed [facility] 00:00:00 [facility] MMR 2006-04-20 Completed [facility] 00:00:00 [facility] Polio (IPV/OPV) 2006-04-20 Completed [facility] 00:00:00 [facility] Varicella 2006-04-20 Completed [facility] (varivax)(chicken 00:00:00 [place] [facility] pox) Branch DTAP 2006-04-20 Completed [facility] 00:00:00 [facility] MMR 2006-04-20 Completed [facility] 00:00:00 [facility] Polio (IPV/OPV) 2006-04-20 Completed [facility] 00:00:00 [facility] Varicella 2006-04-20 Completed [facility] (varivax)(chicken 00:00:00 [place] [facility] pox) Branch DTAP 2006-04-20 Completed [facility] 00:00:00 [facility] MMR 2006-04-20 Completed [facility] 00:00:00 [facility] Polio (IPV/OPV) 2006-04-20 Completed [facility] 00:00:00 [facility] Varicella 2006-04-20 Completed [facility] (varivax)(chicken 00:00:00 [place] [facility] pox) Branch DTAP 2006-04-20 Completed [facility] 00:00:00 [facility] MMR 2006-04-20 Completed [facility] 00:00:00 [facility] Polio (IPV/OPV) 2006-04-20 Completed [facility] of 00:00:00 [facility] Varicella 2006-04-20 Completed [facility] (varivax)(chicken 00:00:00 [place] [facility] pox) Branch DTAP 2006-04-20 Completed [facility] 00:00:00 [facility] MMR 2006-04-20 Completed [facility] 00:00:00 [facility] Polio (IPV/OPV) 2006-04-20 Completed [facility] of 00:00:00 [facility] Varicella 2006-04-20 Completed [facility] (varivax)(chicken 00:00:00 [place] [facility] pox) Branch DTAP 2006-04-20 Completed [facility] 00:00:00 [facility] MMR 2006-04-20 Completed [facility] 00:00:00 [facility] Polio (IPV/OPV) 2006-04-20 Completed [facility] of 00:00:00 [facility] Polio (IPV/OPV) 2006-04-20 Completed [facility] of 00:00:00 [facility] Varicella 2006-04-20 Completed [facility] (varivax)(chicken 00:00:00 [place] [facility] pox) Branch DTAP 2006-04-20 Completed [facility] 00:00:00 [facility] MMR 2006-04-20 Completed [facility] 00:00:00 [facility] Varicella 2006-04-20 Completed [facility] (varivax)(chicken 00:00:00 [place] [facility] pox) Branch DTAP 2006-04-20 Completed [facility] 00:00:00 [facility] MMR 2006-04-20 Completed [facility] 00:00:00 [facility] Polio (IPV/OPV) 2006-04-20 Completed [facility] of 00:00:00 [facility] Varicella 2006-04-20 Completed [facility] (varivax)(chicken 00:00:00 [place] [facility] pox) Branch DTAP 2006-04-20 Completed [facility] 00:00:00 [facility] MMR 2006-04-20 Completed [facility] 00:00:00 [facility] Polio (IPV/OPV) 2006-04-20 Completed [facility] of 00:00:00 [facility] Varicella 2006-04-20 Completed [facility] (varivax)(chicken 00:00:00 [place] [facility] pox) Branch DTAP 2006-04-20 Completed [facility] 00:00:00 [facility] MMR 2006-04-20 Completed [facility] 00:00:00 [facility] Polio (IPV/OPV) 2006-04-20 Completed [facility] 00:00:00 [facility] Varicella 2006-04-20 Completed [facility] (varivax)(chicken 00:00:00 [place] [facility] pox) Branch DTAP 2006-04-20 Completed [facility] 00:00:00 [facility] MMR 2006-04-20 Completed [facility] 00:00:00 [facility] Polio (IPV/OPV) 2006-04-20 Completed [facility] 00:00:00 [facility] Varicella 2006-04-20 Completed [facility] (varivax)(chicken 00:00:00 [place] [facility] pox) Branch DTAP 2006-04-20 Completed [facility] 00:00:00 [facility] MMR 2006-04-20 Completed [facility] 00:00:00 [facility] Polio (IPV/OPV) 2006-04-20 Completed Univers[facility] y of 00:00:00 [facility] Varicella 2006-04-20 Completed [facility] (varivax)(chicken 00:00:00 [place] [facility] pox) Branch DTAP 2006-04-20 Completed [facility] 00:00:00 [facility] MMR 2006-04-20 Completed [facility] 00:00:00 [facility] Polio (IPV/OPV) 2006-04-20 Completed [facility] 00:00:00 [facility] Varicella 2006-04-20 Completed [facility] (varivax)(chicken 00:00:00 [place] [facility] pox) Branch DTAP 2006-04-20 Completed [facility] 00:00:00 [facility] MMR 2006-04-20 Completed [facility] 00:00:00 [facility] Polio (IPV/OPV) 2006-04-20 Completed [facility] 00:00:00 [facility] Varicella 2006-04-20 Completed [facility] (varivax)(chicken 00:00:00 [place] [facility] pox) Branch DTAP 2006-04-20 Completed [facility] 00:00:00 [facility] MMR 2006-04-20 Completed [facility] 00:00:00 [facility] Polio (IPV/OPV) 2006-04-20 Completed [facility] 00:00:00 [facility] Varicella 2006-04-20 Completed [facility] (varivax)(chicken 00:00:00 [place] [facility] pox) Branch DTAP 2006-04-20 Completed [facility] 00:00:00 [facility] MMR 2006-04-20 Completed [facility] 00:00:00 [facility] Polio (IPV/OPV) 2006-04-20 Completed [facility] 00:00:00 [facility] Polio (IPV/OPV) 2006-04-20 Completed [facility] 00:00:00 [facility] Varicella 2006-04-20 Completed [facility] (varivax)(chicken 00:00:00 [place] [facility] pox) Branch DTAP 2006-04-20 Completed [facility] 00:00:00 [facility] MMR 2006-04-20 Completed [facility] 00:00:00 [facility] Varicella 2006-04-20 Completed [facility] (varivax)(chicken 00:00:00 [place] [facility] pox) Branch DTAP 2006-04-20 Completed [facility] 00:00:00 [facility] Polio (IPV/OPV) 2006-04-20 Completed [facility] 00:00:00 [facility] MMR 2006-04-20 Completed [facility] 00:00:00 [facility] Varicella 2006-04-20 Completed [facility] (varivax)(chicken 00:00:00 [place] [facility] pox) Branch DTAP 2006-04-20 Completed [facility] 00:00:00 [facility] MMR 2006-04-20 Completed [facility] 00:00:00 [facility] Polio (IPV/OPV) 2006-04-20 Completed [facility] 00:00:00 [facility] Varicella 2006-04-20 Completed [facility] (varivax)(chicken 00:00:00 [place] [facility] pox) Branch DTAP 2006-04-20 Completed [facility] 00:00:00 [facility] MMR 2006-04-20 Completed [facility] 00:00:00 [facility] Polio (IPV/OPV) 2006-04-20 Completed Univers[facility] 00:00:00 [facility] Varicella 2006-04-20 Completed [facility] (varivax)(chicken 00:00:00 [place] [facility] pox) Branch DTAP 2006-04-20 Completed [facility] 00:00:00 [facility] MMR 2006-04-20 Completed [facility] 00:00:00 [facility] Polio (IPV/OPV) 2006-04-20 Completed [facility] 00:00:00 [facility] Varicella 2006-04-20 Completed [facility] (varivax)(chicken 00:00:00 [place] [facility] pox) Branch DTAP 2006-04-20 Completed [facility] 00:00:00 [facility] MMR 2006-04-20 Completed [facility] 00:00:00 [facility] Polio (IPV/OPV) 2006-04-20 Completed [facility] 00:00:00 [facility] Varicella 2006-04-20 Completed [facility] (varivax)(chicken 00:00:00 [place] [facility] pox) Branch DTAP 2006-04-20 Completed [facility] 00:00:00 [facility] MMR 2006-04-20 Completed [facility] 00:00:00 [facility] Polio (IPV/OPV) 2006-04-20 Completed [facility] 00:00:00 [facility] Polio (IPV/OPV) 2006-04-20 Completed [facility] 00:00:00 [facility] Varicella 2006-04-20 Completed [facility] (varivax)(chicken 00:00:00 [place] [facility] pox) Branch DTAP 2006-04-20 Completed [facility] 00:00:00 [facility] MMR 2006-04-20 Completed [facility] 00:00:00 [facility] Varicella 2006-04-20 Completed [facility] (varivax)(chicken 00:00:00 [place] [facility] pox) Branch DTAP 2006-04-20 Completed [facility] 00:00:00 [facility] Polio (IPV/OPV) 2006-04-20 Completed [facility] 00:00:00 [facility] Varicella 2006-04-20 Completed [facility] (varivax)(chicken 00:00:00 [place] [facility] pox) Branch MMR 2006-04-20 Completed [facility] 00:00:00 [facility] DTAP 2006-04-20 Completed [facility] 00:00:00 [facility] MMR 2006-04-20 Completed [facility] 00:00:00 [facility] Polio (IPV/OPV) 2006-04-20 Completed [facility] 00:00:00 [facility] Varicella 2006-04-20 Completed [facility] (varivax)(chicken 00:00:00 [place] [facility] pox) Branch DTAP 2006-04-20 Completed [facility] 00:00:00 [facility] MMR 2006-04-20 Completed [facility] 00:00:00 [facility] Polio (IPV/OPV) 2006-04-20 Completed [facility] 00:00:00 [facility] Varicella 2006-04-20 Completed [facility] (varivax)(chicken 00:00:00 [place] [facility] pox) Branch DTAP 2006-04-20 Completed [facility] 00:00:00 [facility] MMR 2006-04-20 Completed [facility] 00:00:00 [facility] Polio (IPV/OPV) 2006-04-20 Completed [facility] 00:00:00 [facility] Varicella 2006-04-20 Completed [facility] (varivax)(chicken 00:00:00 [place] [facility] pox) Branch DTAP 2006-04-20 Completed [facility] 00:00:00 [facility] MMR 2006-04-20 Completed [facility] 00:00:00 [facility] Polio (IPV/OPV) 2006-04-20 Completed [facility] 00:00:00 [facility] Varicella 2006-04-20 Completed [facility] (varivax)(chicken 00:00:00 [place] [facility] edical pox) Branch DTAP 2006-04-20 Completed [facility] 00:00:00 [facility] MMR 2006-04-20 Completed [facility] of 00:00:00 [facility] Polio (IPV/OPV) 2006-04-20 Completed [facility]it [facility] 00:00:00 [facility] Varicella 2006-04-20 Completed University of (varivax)(chicken 00:00:00 [facility] edical pox) Branch DTAP 2006-04-20 Completed [facility] of 00:00:00 [facility] MMR 2006-04-20 Completed [facility] of 00:00:00 [facility] Polio (IPV/OPV) 2006-04-20 Completed Universit y of 00:00:00 [facility] Varicella 2006-04-20 Completed [facility] of (varivax)(chicken 00:00:00 [place] [facility] pox) Branch DTAP 2006-04-20 Completed [facility] of 00:00:00 [facility] MMR 2006-04-20 Completed [facility] of 00:00:00 [facility] Polio (IPV/OPV) 2006-04-20 Completed Universit y of 00:00:00 [facility] Polio (IPV/OPV) 2006-04-20 Completed [facility]it y of 00:00:00 [facility] Varicella 2006-04-20 Completed University of (varivax)(chicken 00:00:00 [place] [facility] pox) Branch DTAP 2006-04-20 Completed [facility] of 00:00:00 [facility] MMR 2006-04-20 Completed [facility] of 00:00:00 [facility] Varicella 2006-04-20 Completed [facility] of (varivax)(chicken 00:00:00 [place] [facility] pox) Branch DTAP 2006-04-20 Completed [facility] of 00:00:00 [facility] Polio (IPV/OPV) 2006-04-20 Completed Universit y of 00:00:00 [facility] MMR 2006-04-20 Completed [facility] of 00:00:00 [facility] Varicella 2006-04-20 Completed [facility] of (varivax)(chicken 00:00:00 [place] [facility] pox) Branch DTAP 2006-04-20 Completed [facility] of 00:00:00 [facility] MMR 2006-04-20 Completed [facility] of 00:00:00 [facility] Polio (IPV/OPV) 2006-04-20 Completed Universit y of 00:00:00 [facility] Varicella 2006-04-20 Completed [facility] of (varivax)(chicken 00:00:00 [place] [facility] pox) Branch DTAP 2006-04-20 Completed [facility] of 00:00:00 [facility] MMR 2006-04-20 Completed [facility] of 00:00:00 [facility] Polio (IPV/OPV) 2006-04-20 Completed Universit y of 00:00:00 [facility] Varicella 2006-04-20 Completed [facility] of (varivax)(chicken 00:00:00 [place] [facility] pox) Branch DTAP 2006-04-20 Completed [facility] of 00:00:00 [facility] MMR 2006-04-20 Completed [facility] of 00:00:00 [facility] Polio (IPV/OPV) 2006-04-20 Completed [facility]it [facility] of 00:00:00 [facility] Varicella 2006-04-20 Completed [facility] of (varivax)(chicken 00:00:00 [place] [facility] pox) Branch DTAP 2006-04-20 Completed [facility] of 00:00:00 [facility] MMR 2006-04-20 Completed [facility] of 00:00:00 [facility] Polio (IPV/OPV) 2006-04-20 Completed Universit y of 00:00:00 [facility] Varicella 2006-04-20 Completed [facility] of (varivax)(chicken 00:00:00 [place] [facility] pox) Branch DTAP 2006-04-20 Completed [facility] of 00:00:00 [facility] MMR 2006-04-20 Completed [facility] of 00:00:00 [facility] Polio (IPV/OPV) 2006-04-20 Completed [facility]it [facility] 00:00:00 [facility] Varicella 2006-04-20 Completed [facility] of (varivax)(chicken 00:00:00 [place] [facility] pox) Branch DTAP 2006-04-20 Completed [facility] of 00:00:00 [facility] MMR 2006-04-20 Completed [facility] of 00:00:00 [facility] Polio (IPV/OPV) 2006-04-20 Completed [facility]it y of 00:00:00 [facility] Varicella 2006-04-20 Completed [facility] of (varivax)(chicken 00:00:00 [place] [facility] pox) Branch DTAP 2006-04-20 Completed [facility] of 00:00:00 [facility] MMR 2006-04-20 Completed [facility] of 00:00:00 [facility] Polio (IPV/OPV) 2006-04-20 Completed Universit y of 00:00:00 [facility] Polio (IPV/OPV) 2006-04-20 Completed [facility]it y of 00:00:00 [facility] Varicella 2006-04-20 Completed [facility] of (varivax)(chicken 00:00:00 [place] [facility] pox) Branch DTAP 2006-04-20 Completed [facility] of 00:00:00 [facility] MMR 2006-04-20 Completed [facility] of 00:00:00 [facility] Varicella 2006-04-20 Completed [facility] of (varivax)(chicken 00:00:00 [place] edical pox) Branch Polio (IPV/OPV) 2006-04-20 Completed Universit [facility] 00:00:00 [facility] Varicella 2006-04-20 Completed [facility] of (varivax)(chicken 00:00:00 [place] [facility] pox) Branch DTAP 2006-04-20 Completed [facility] of 00:00:00 [facility] DTAP 2006-04-20 Completed [facility] of 00:00:00 [facility] MMR 2006-04-20 Completed [facility] of 00:00:00 [facility] MMR 2006-04-20 Completed [facility] of 00:00:00 [facility] Polio (IPV/OPV) 2006-04-20 Completed [facility]it y of 00:00:00 [facility] Varicella 2006-04-20 Completed [facility] of (varivax)(chicken 00:00:00 [facility] edical pox) Branch DTAP 2006-04-20 Completed [facility] of 00:00:00 [facility] MMR 2006-04-20 Completed [facility] of 00:00:00 [facility] Polio (IPV/OPV) 2006-04-20 Completed Universit y of 00:00:00 [facility] Varicella 2006-04-20 Completed [facility] of (varivax)(chicken 00:00:00 [place] [facility] pox) Branch DTAP 2006-04-20 Completed [facility] of 00:00:00 [facility] MMR 2006-04-20 Completed [facility] of 00:00:00 [facility] Polio (IPV/OPV) 2006-04-20 Completed Universit [facility] of 00:00:00 [facility] Varicella 2006-04-20 Completed [facility] of (varivax)(chicken 00:00:00 [place] [facility] pox) Branch DTAP 2006-04-20 Completed [facility] of 00:00:00 [facility] MMR 2006-04-20 Completed [facility] of 00:00:00 [facility] Polio (IPV/OPV) 2006-04-20 Completed Universit y of 00:00:00 [facility] Varicella 2006-04-20 Completed [facility] of (varivax)(chicken 00:00:00 [place] [facility] pox) Branch DTAP 2006-04-20 Completed [facility] of 00:00:00 [facility] MMR 2006-04-20 Completed [facility] of 00:00:00 [facility] Polio (IPV/OPV) 2006-04-20 Completed Universit y of 00:00:00 [facility] Varicella 2006-04-20 Completed [facility] of (varivax)(chicken 00:00:00 [place] [facility] pox) Branch DTAP 2006-04-20 Completed [facility] of 00:00:00 [facility] MMR 2006-04-20 Completed [facility] of 00:00:00 [facility] Polio (IPV/OPV) 2006-04-20 Completed [facility]it [facility] of 00:00:00 [facility] Varicella 2006-04-20 Completed [facility] of (varivax)(chicken 00:00:00 [place] [facility] pox) Branch DTAP 2006-04-20 Completed [facility] of 00:00:00 [facility] MMR 2006-04-20 Completed [facility] of 00:00:00 [facility] Polio (IPV/OPV) 2006-04-20 Completed Universit y of 00:00:00 [facility] Varicella 2006-04-20 Completed [facility] of (varivax)(chicken 00:00:00 [place] [facility] pox) Branch DTAP 2006-04-20 Completed [facility] of 00:00:00 [facility] MMR 2006-04-20 Completed [facility] of 00:00:00 [facility] Polio (IPV/OPV) 2006-04-20 Completed Universit y of 00:00:00 [facility] Polio (IPV/OPV) 2006-04-20 Completed [facility]it y of 00:00:00 [facility] Varicella 2006-04-20 Completed [facility] of (varivax)(chicken 00:00:00 [place] [facility] pox) Branch DTAP 2006-04-20 Completed [facility] of 00:00:00 [facility] MMR 2006-04-20 Completed [facility] of 00:00:00 [facility] Polio (IPV/OPV) 2006-04-20 Completed Universit y of 00:00:00 [facility] Varicella 2006-04-20 Completed University of (varivax)(chicken 00:00:00 [place] [facility] pox) Branch DTAP 2006-04-20 Completed [facility] of 00:00:00 [facility] MMR 2006-04-20 Completed [facility] of 00:00:00 [facility] Varicella 2006-04-20 Completed [facility] of (varivax)(chicken 00:00:00 [place] [facility] pox) Branch DTAP 2006-04-20 Completed [facility] of 00:00:00 [facility] MMR 2006-04-20 Completed [facility] of 00:00:00 [facility] Polio (IPV/OPV) 2006-04-20 Completed Universit y of 00:00:00 [facility] Varicella 2006-04-20 Completed [facility] of (varivax)(chicken 00:00:00 [place] [facility] pox) Branch DTAP 2006-04-20 Completed [facility] of 00:00:00 [facility] MMR 2006-04-20 Completed [facility] of 00:00:00 [facility] Polio (IPV/OPV) 2006-04-20 Completed Universit y of 00:00:00 [facility] Varicella 2006-04-20 Completed University of (varivax)(chicken 00:00:00 [place] [facility] pox) Branch DTAP 2006-04-20 Completed [facility] of 00:00:00 [facility] MMR 2006-04-20 Completed [facility] of 00:00:00 [facility] Polio (IPV/OPV) 2006-04-20 Completed Universit y [facility] 00:00:00 [facility] Varicella 2006-04-20 Completed [facility] of (varivax)(chicken 00:00:00 [place] [facility] pox) Branch DTAP 2006-04-20 Completed [facility] of 00:00:00 [facility] MMR 2006-04-20 Completed [facility] of 00:00:00 [facility] Polio (IPV/OPV) 2006-04-20 Completed Universit [facility] 00:00:00 [facility] Varicella 2006-04-20 Completed [facility] of (varivax)(chicken 00:00:00 [place] [facility] pox) Branch DTAP 2006-04-20 Completed [facility] of 00:00:00 [facility] MMR 2006-04-20 Completed [facility] of 00:00:00 [facility] Polio (IPV/OPV) 2006-04-20 Completed Universit y of 00:00:00 [facility] Varicella 2006-04-20 Completed University of (varivax)(chicken 00:00:00 [facility] edical pox) Branch DTAP 2006-04-20 Completed University of 00:00:00 [facility] MMR 2006-04-20 Completed [facility] of 00:00:00 [facility] Polio (IPV/OPV) 2006-04-20 Completed Universit y [facility] 00:00:00 [facility] Varicella 2006-04-20 Completed [facility] of (varivax)(chicken 00:00:00 [place] [facility] pox) Branch DTAP 2006-04-20 Completed [facility] of 00:00:00 [facility] MMR 2006-04-20 Completed [facility] of 00:00:00 [facility] Polio (IPV/OPV) 2006-04-20 Completed Universit [facility] 00:00:00 [facility] Varicella 2006-04-20 Completed [facility] of (varivax)(chicken 00:00:00 [place] [facility] pox) Branch DTAP 2006-04-20 Completed [facility] of 00:00:00 [facility] MMR 2006-04-20 Completed [facility] of 00:00:00 [facility] Polio (IPV/OPV) 2006-04-20 Completed Universit y [facility] 00:00:00 [facility] Varicella 2006-04-20 Completed University of (varivax)(chicken 00:00:00 [place] [facility] pox) Branch DTAP 2006-04-20 Completed [facility] of 00:00:00 [facility] MMR 2006-04-20 Completed University of 00:00:00 [facility] HEPATITIS A 2005-01-09 Completed University of 00:00:00 [facility] HEPATITIS A 2005-01-09 Completed University of 00:00:00 [facility] Branch HEPATITIS A 2005-01-09 Completed University of 00:00:00 [facility] Branch HEPATITIS A 2005-01-09 Completed University of 00:00:00 [facility] Branch HEPATITIS A 2005-01-09 Completed University of 00:00:00 [facility] Branch HEPATITIS A 2005-01-09 Completed University of 00:00:00 [facility] Branch HEPATITIS A 2005-01-09 Completed University of 00:00:00 [facility] Branch HEPATITIS A 2005-01-09 Completed University of 00:00:00 [facility] Branch HEPATITIS A 2005-01-09 Completed University of 00:00:00 [facility] Branch HEPATITIS A 2005-01-09 Completed University of 00:00:00 [facility] Branch HEPATITIS A 2005-01-09 Completed University of 00:00:00 [facility] Branch HEPATITIS A 2005-01-09 Completed University of 00:00:00 [facility] Branch HEPATITIS A 2005-01-09 Completed University of 00:00:00 [facility] Branch HEPATITIS A 2005-01-09 Completed University of 00:00:00 [facility] Branch HEPATITIS A 2005-01-09 Completed University of 00:00:00 [facility] Branch HEPATITIS A 2005-01-09 Completed University of 00:00:00 [facility] Branch HEPATITIS A 2005-01-09 Completed University of 00:00:00 [facility] Branch HEPATITIS A 2005-01-09 Completed University of 00:00:00 [facility] Branch HEPATITIS A 2005-01-09 Completed University of 00:00:00 [facility] Branch HEPATITIS A 2005-01-09 Completed University of 00:00:00 [facility] Branch HEPATITIS A 2005-01-09 Completed University of 00:00:00 [facility] Branch HEPATITIS A 2005-01-09 Completed University of 00:00:00 [facility] Branch HEPATITIS A 2005-01-09 Completed University of 00:00:00 [facility] Branch HEPATITIS A 2005-01-09 Completed University of 00:00:00 [facility] Branch HEPATITIS A 2005-01-09 Completed University of 00:00:00 [facility] Branch HEPATITIS A 2005-01-09 Completed University of 00:00:00 [facility] Branch HEPATITIS A 2005-01-09 Completed University of 00:00:00 [facility] Branch HEPATITIS A 2005-01-09 Completed University of 00:00:00 [facility] Branch HEPATITIS A 2005-01-09 Completed University of 00:00:00 [facility] Branch HEPATITIS A 2005-01-09 Completed University of 00:00:00 [facility] Branch HEPATITIS A 2005-01-09 Completed University of 00:00:00 [facility] Branch HEPATITIS A 2005-01-09 Completed University of 00:00:00 [facility] HEPATITIS A 2005-01-09 Completed University of 00:00:00 [facility] Branch HEPATITIS A 2005-01-09 Completed University of 00:00:00 [facility] Branch HEPATITIS A 2005-01-09 Completed University of 00:00:00 [facility] Branch HEPATITIS A 2005-01-09 Completed University of 00:00:00 [facility] Branch HEPATITIS A 2005-01-09 Completed University of 00:00:00 [facility] Branch HEPATITIS A 2005-01-09 Completed University of 00:00:00 [facility] Branch HEPATITIS A 2005-01-09 Completed University of 00:00:00 [facility] Branch HEPATITIS A 2005-01-09 Completed University of 00:00:00 [facility] HEPATITIS A 2005-01-09 Completed University of 00:00:00 [facility] HEPATITIS A 2005-01-09 Completed University of 00:00:00 [facility] HEPATITIS A 2005-01-09 Completed University of 00:00:00 [facility] Branch HEPATITIS A 2005-01-09 Completed University of 00:00:00 [facility] HEPATITIS A 2005-01-09 Completed University of 00:00:00 [facility] HEPATITIS A 2005-01-09 Completed University of 00:00:00 [facility] Branch HEPATITIS A 2005-01-09 Completed University of 00:00:00 [facility] HEPATITIS A 2005-01-09 Completed University of 00:00:00 [facility] Branch HEPATITIS A 2005-01-09 Completed University of 00:00:00 [facility] HEPATITIS A 2005-01-09 Completed University of 00:00:00 [facility] HEPATITIS A 2005-01-09 Completed University of 00:00:00 [facility] Branch HEPATITIS A 2005-01-09 Completed University of 00:00:00 [facility] Branch HEPATITIS A 2005-01-09 Completed University of 00:00:00 [facility] Branch HEPATITIS A 2005-01-09 Completed University of 00:00:00 [facility] HEPATITIS A 2005-01-09 Completed University of 00:00:00 [facility] HEPATITIS A 2005-01-09 Completed University of 00:00:00 [facility] Branch HEPATITIS A 2005-01-09 Completed University of 00:00:00 [facility] HEPATITIS A 2005-01-09 Completed University of 00:00:00 [facility] Branch HEPATITIS A 2005-01-09 Completed University of 00:00:00 [facility] HEPATITIS A 2005-01-09 Completed University of 00:00:00 [facility] HEPATITIS A 2005-01-09 Completed University of 00:00:00 [facility] HEPATITIS A 2005-01-09 Completed University of 00:00:00 [facility] HEPATITIS A 2005-01-09 Completed University of 00:00:00 [facility] HEPATITIS A 2005-01-09 Completed University of 00:00:00 [facility] HEPATITIS A 2005-01-09 Completed University of 00:00:00 [facility] HEPATITIS A 2005-01-09 Completed University of 00:00:00 [facility] HEPATITIS A 2005-01-09 Completed University of 00:00:00 [facility] HEPATITIS A 2005-01-09 Completed University of 00:00:00 [facility] HEPATITIS A 2005-01-09 Completed University of 00:00:00 [facility] HEPATITIS A 2005-01-09 Completed University of 00:00:00 [facility] HEPATITIS A 2005-01-09 Completed University of 00:00:00 [facility] HEPATITIS A 2005-01-09 Completed University of 00:00:00 [facility] HEPATITIS A 2005-01-09 Completed University of 00:00:00 [facility] HEPATITIS A 2005-01-09 Completed University of 00:00:00 [facility] HEPATITIS A 2005-01-09 Completed University of 00:00:00 [facility] HEPATITIS A 2005-01-09 Completed University of 00:00:00 [facility] HEPATITIS A 2005-01-09 Completed University of 00:00:00 [facility] HEPATITIS A 2005-01-09 Completed University of 00:00:00 [facility] HEPATITIS A 2005-01-09 Completed University of 00:00:00 [facility] HEPATITIS A 2005-01-09 Completed University of 00:00:00 [facility] HEPATITIS A 2005-01-09 Completed University of 00:00:00 [facility] HEPATITIS A 2005-01-09 Completed University of 00:00:00 [facility] HEPATITIS A 2005-01-09 Completed University of 00:00:00 [facility] HEPATITIS A 2005-01-09 Completed University of 00:00:00 [facility] HEPATITIS A 2005-01-09 Completed University of 00:00:00 [facility] HEPATITIS A 2005-01-09 Completed University of 00:00:00 [facility] HEPATITIS A 2005-01-09 Completed University of 00:00:00 [facility] HEPATITIS A 2005-01-09 Completed University of 00:00:00 [facility] HEPATITIS A 2005-01-09 Completed University of 00:00:00 [facility] HEPATITIS A 2004-05-28 Completed University of 00:00:00 [facility] Pneumococcal 7 2004-05-28 Completed University of Conjugate, PCV7 00:00:00 [place] [facility] (Prevnar7) [place] HEPATITIS A 2004-05-28 Completed [facility] of 00:00:00 [facility] Pneumococcal 7 2004-05-28 Completed University of Conjugate, PCV7 00:00:00 [place] [facility] (Prevnar7) [place] HEPATITIS A 2004-05-28 Completed University of 00:00:00 [facility] Pneumococcal 7 2004-05-28 Completed University of Conjugate, PCV7 00:00:00 [place] [facility] (Prevnar7) [place] HEPATITIS A 2004-05-28 Completed [facility] of 00:00:00 [facility] Pneumococcal 7 2004-05-28 Completed University of Conjugate, PCV7 00:00:00 [place] [facility] (Prevnar7) Branch Pneumococcal 7 2004-05-28 Completed University of Conjugate, PCV7 00:00:00 [place] [facility] (Prevnar7) [place] HEPATITIS A 2004-05-28 Completed [facility] 00:00:00 [facility] Pneumococcal 7 2004-05-28 Completed University of Conjugate, PCV7 00:00:00 [place] [facility] (Prevnar7) [place] HEPATITIS A 2004-05-28 Completed [facility] of 00:00:00 [facility] Pneumococcal 7 2004-05-28 Completed University of Conjugate, PCV7 00:00:00 [place] [facility] (Prevnar7) [place] HEPATITIS A 2004-05-28 Completed [facility] of 00:00:00 [facility] Pneumococcal 7 2004-05-28 Completed University of Conjugate, PCV7 00:00:00 [place] [facility] (Prevnar7) [place] HEPATITIS A 2004-05-28 Completed [facility] of 00:00:00 [facility] Pneumococcal 7 2004-05-28 Completed [facility] Conjugate, PCV7 00:00:00 [place] [facility] (Prevnar7) [place] HEPATITIS A 2004-05-28 Completed [facility] 00:00:00 [facility] Pneumococcal 7 2004-05-28 Completed [facility] Conjugate, PCV7 00:00:00 [place] [facility] (Prevnar7) [facility] HEPATITIS A 2004-05-28 Completed [facility] 00:00:00 [facility] HEPATITIS A 2004-05-28 Completed [facility] 00:00:00 [facility] Pneumococcal 7 2004-05-28 Completed [facility] Conjugate, PCV7 00:00:00 [place] [facility] (Prevnar7) [facility] HEPATITIS A 2004-05-28 Completed [facility] 00:00:00 [facility] Pneumococcal 7 2004-05-28 Completed [facility] Conjugate, PCV7 00:00:00 [place] [facility] (Prevnar7) [facility] HEPATITIS A 2004-05-28 Completed [facility] 00:00:00 [facility] Pneumococcal 7 2004-05-28 Completed [facility] Conjugate, PCV7 00:00:00 [place] [facility] (Prevnar7) [facility] HEPATITIS A 2004-05-28 Completed [facility] 00:00:00 [facility] Pneumococcal 7 2004-05-28 Completed [facility] Conjugate, PCV7 00:00:00 [place] [facility] (Prevnar7) [facility] Pneumococcal 7 2004-05-28 Completed [facility] Conjugate, PCV7 00:00:00 [place] [facility] (Prevnar7) [facility] HEPATITIS A 2004-05-28 Completed [facility] 00:00:00 [facility] Pneumococcal 7 2004-05-28 Completed [facility] Conjugate, PCV7 00:00:00 [place] [facility] (Prevnar7) [facility] HEPATITIS A 2004-05-28 Completed [facility] 00:00:00 [facility] Pneumococcal 7 2004-05-28 Completed [facility] Conjugate, PCV7 00:00:00 [place] [facility] (Prevnar7) [facility] HEPATITIS A 2004-05-28 Completed [facility] 00:00:00 [facility] Pneumococcal 7 2004-05-28 Completed [facility] Conjugate, PCV7 00:00:00 [place] [facility] (Prevnar7) [facility] HEPATITIS A 2004-05-28 Completed [facility] 00:00:00 [facility] Pneumococcal 7 2004-05-28 Completed [facility] Conjugate, PCV7 00:00:00 [place] [facility] (Prevnar7) [facility] HEPATITIS A 2004-05-28 Completed [facility] 00:00:00 [facility] Pneumococcal 7 2004-05-28 Completed [facility] Conjugate, PCV7 00:00:00 [place] [facility] (Prevnar7) [place] HEPATITIS A 2004-05-28 Completed [facility] 00:00:00 [facility] Pneumococcal 7 2004-05-28 Completed [facility] Conjugate, PCV7 00:00:00 [place] [facility] (Prevnar7) [facility] HEPATITIS A 2004-05-28 Completed [facility] 00:00:00 [facility] Pneumococcal 7 2004-05-28 Completed [facility] Conjugate, PCV7 00:00:00 [place] [facility] (Prevnar7) [facility] HEPATITIS A 2004-05-28 Completed [facility] 00:00:00 [facility] HEPATITIS A 2004-05-28 Completed [facility] 00:00:00 [facility] Pneumococcal 7 2004-05-28 Completed [facility] Conjugate, PCV7 00:00:00 [place] [facility] (Prevnar7) [place] HEPATITIS A 2004-05-28 Completed [facility] 00:00:00 [facility] Pneumococcal 7 2004-05-28 Completed [facility] Conjugate, PCV7 00:00:00 [place] [facility] (Prevnar7) [place] HEPATITIS A 2004-05-28 Completed [facility] 00:00:00 [facility] Pneumococcal 7 2004-05-28 Completed [facility] Conjugate, PCV7 00:00:00 [place] [facility] (Prevnar7) [place] HEPATITIS A 2004-05-28 Completed [facility] 00:00:00 [facility] Pneumococcal 7 2004-05-28 Completed [facility] Conjugate, PCV7 00:00:00 [place] [facility] (Prevnar7) [facility] Pneumococcal 7 2004-05-28 Completed [facility] Conjugate, PCV7 00:00:00 [place] [facility] (Prevnar7) [place] HEPATITIS A 2004-05-28 Completed [facility] 00:00:00 [facility] Pneumococcal 7 2004-05-28 Completed [facility] Conjugate, PCV7 00:00:00 [place] [facility] (Prevnar7) [place] HEPATITIS A 2004-05-28 Completed [facility] 00:00:00 [facility] Pneumococcal 7 2004-05-28 Completed [facility] Conjugate, PCV7 00:00:00 [place] [facility] (Prevnar7) [facility] HEPATITIS A 2004-05-28 Completed [facility] 00:00:00 [facility] Pneumococcal 7 2004-05-28 Completed [facility] Conjugate, PCV7 00:00:00 [place] [facility] (Prevnar7) [facility] HEPATITIS A 2004-05-28 Completed [facility] 00:00:00 [facility] Pneumococcal 7 2004-05-28 Completed [facility] Conjugate, PCV7 00:00:00 [place] [facility] (Prevnar7) [facility] HEPATITIS A 2004-05-28 Completed [facility] 00:00:00 [facility] HEPATITIS A 2004-05-28 Completed [facility] 00:00:00 [facility] Pneumococcal 7 2004-05-28 Completed [facility] Conjugate, PCV7 00:00:00 [place] [facility] (Prevnar7) [facility] HEPATITIS A 2004-05-28 Completed [facility] 00:00:00 [facility] Pneumococcal 7 2004-05-28 Completed [facility] Conjugate, PCV7 00:00:00 [place] [facility] (Prevnar7) [facility] HEPATITIS A 2004-05-28 Completed [facility] 00:00:00 [facility] Pneumococcal 7 2004-05-28 Completed [facility] Conjugate, PCV7 00:00:00 [place] [facility] (Prevnar7) [facility] HEPATITIS A 2004-05-28 Completed [facility] 00:00:00 [facility] Pneumococcal 7 2004-05-28 Completed [facility] Conjugate, PCV7 00:00:00 [place] [facility] (Prevnar7) [facility] Pneumococcal 7 2004-05-28 Completed [facility] Conjugate, PCV7 00:00:00 [place] [facility] (Prevnar7) [facility] HEPATITIS A 2004-05-28 Completed [facility] 00:00:00 [facility] Pneumococcal 7 2004-05-28 Completed [facility] Conjugate, PCV7 00:00:00 [place] [facility] (Prevnar7) [facility] HEPATITIS A 2004-05-28 Completed [facility] 00:00:00 [facility] Pneumococcal 7 2004-05-28 Completed [facility] Conjugate, PCV7 00:00:00 [place] [facility] (Prevnar7) [facility] HEPATITIS A 2004-05-28 Completed [facility] 00:00:00 [facility] Pneumococcal 7 2004-05-28 Completed [facility] Conjugate, PCV7 00:00:00 [place] [facility] (Prevnar7) [facility] HEPATITIS A 2004-05-28 Completed [facility] 00:00:00 [facility] Pneumococcal 7 2004-05-28 Completed [facility] Conjugate, PCV7 00:00:00 [place] [facility] (Prevnar7) [facility] HEPATITIS A 2004-05-28 Completed [facility] 00:00:00 [facility] Pneumococcal 7 2004-05-28 Completed [facility] Conjugate, PCV7 00:00:00 [place] [facility] (Prevnar7) [facility] HEPATITIS A 2004-05-28 Completed [facility] 00:00:00 [facility] HEPATITIS A 2004-05-28 Completed [facility] 00:00:00 [facility] Pneumococcal 7 2004-05-28 Completed [facility] Conjugate, PCV7 00:00:00 [place] [facility] (Prevnar7) [facility] HEPATITIS A 2004-05-28 Completed [facility] 00:00:00 [facility] Pneumococcal 7 2004-05-28 Completed [facility] Conjugate, PCV7 00:00:00 [place] [facility] (Prevnar7) [facility] HEPATITIS A 2004-05-28 Completed [facility] 00:00:00 [facility] Pneumococcal 7 2004-05-28 Completed [facility] Conjugate, PCV7 00:00:00 [place] [facility] (Prevnar7) [facility] HEPATITIS A 2004-05-28 Completed [facility] 00:00:00 [facility] Pneumococcal 7 2004-05-28 Completed [facility] Conjugate, PCV7 00:00:00 [place] [facility] (Prevnar7) [facility] Pneumococcal 7 2004-05-28 Completed [facility] Conjugate, PCV7 00:00:00 [place] [facility] (Prevnar7) [facility] HEPATITIS A 2004-05-28 Completed [facility] 00:00:00 [facility] Pneumococcal 7 2004-05-28 Completed [facility] Conjugate, PCV7 00:00:00 [place] [facility] (Prevnar7) [facility] HEPATITIS A 2004-05-28 Completed [facility] 00:00:00 [facility] Pneumococcal 7 2004-05-28 Completed [facility] Conjugate, PCV7 00:00:00 [place] [facility] (Prevnar7) [facility] HEPATITIS A 2004-05-28 Completed [facility] 00:00:00 [facility] HEPATITIS A 2004-05-28 Completed [facility] 00:00:00 [facility] Pneumococcal 7 2004-05-28 Completed [facility] Conjugate, PCV7 00:00:00 [place] [facility] (Prevnar7) [facility] HEPATITIS A 2004-05-28 Completed [facility] 00:00:00 [facility] Pneumococcal 7 2004-05-28 Completed [facility] Conjugate, PCV7 00:00:00 [place] [facility] (Prevnar7) [facility] HEPATITIS A 2004-05-28 Completed [facility] 00:00:00 [facility] Pneumococcal 7 2004-05-28 Completed [facility] Conjugate, PCV7 00:00:00 [place] [facility] (Prevnar7) [facility] HEPATITIS A 2004-05-28 Completed [facility] 00:00:00 [facility] Pneumococcal 7 2004-05-28 Completed [facility] Conjugate, PCV7 00:00:00 [place] [facility] (Prevnar7) [facility] Pneumococcal 7 2004-05-28 Completed [facility] Conjugate, PCV7 00:00:00 [place] [facility] (Prevnar7) [facility] HEPATITIS A 2004-05-28 Completed [facility] 00:00:00 [facility] Pneumococcal 7 2004-05-28 Completed [facility] Conjugate, PCV7 00:00:00 [place] [facility] (Prevnar7) [facility] HEPATITIS A 2004-05-28 Completed [facility] 00:00:00 [facility] Pneumococcal 7 2004-05-28 Completed [facility] Conjugate, PCV7 00:00:00 [place] [facility] (Prevnar7) [facility] HEPATITIS A 2004-05-28 Completed [facility] 00:00:00 [facility] Pneumococcal 7 2004-05-28 Completed [facility] Conjugate, PCV7 00:00:00 [place] [facility] (Prevnar7) [facility] HEPATITIS A 2004-05-28 Completed [facility] 00:00:00 [facility] Pneumococcal 7 2004-05-28 Completed [facility] Conjugate, PCV7 00:00:00 [place] [facility] (Prevnar7) [facility] HEPATITIS A 2004-05-28 Completed [facility] 00:00:00 [facility] HEPATITIS A 2004-05-28 Completed [facility] 00:00:00 [facility] Pneumococcal 7 2004-05-28 Completed [facility] Conjugate, PCV7 00:00:00 [place] [facility] (Prevnar7) [facility] HEPATITIS A 2004-05-28 Completed [facility] 00:00:00 [facility] Pneumococcal 7 2004-05-28 Completed [facility] Conjugate, PCV7 00:00:00 [place] [facility] (Prevnar7) [facility] HEPATITIS A 2004-05-28 Completed [facility] 00:00:00 [facility] Pneumococcal 7 2004-05-28 Completed [facility] Conjugate, PCV7 00:00:00 [place] [facility] (Prevnar7) [facility] HEPATITIS A 2004-05-28 Completed [facility] 00:00:00 [facility] Pneumococcal 7 2004-05-28 Completed [facility] Conjugate, PCV7 00:00:00 [place] [facility] (Prevnar7) [facility] Pneumococcal 7 2004-05-28 Completed [facility] Conjugate, PCV7 00:00:00 [place] [facility] (Prevnar7) [facility] HEPATITIS A 2004-05-28 Completed [facility] 00:00:00 [facility] Pneumococcal 7 2004-05-28 Completed [facility] Conjugate, PCV7 00:00:00 [place] [facility] (Prevnar7) [facility] HEPATITIS A 2004-05-28 Completed [facility] 00:00:00 [facility] Pneumococcal 7 2004-05-28 Completed [facility] Conjugate, PCV7 00:00:00 [place] [facility] (Prevnar7) [facility] HEPATITIS A 2004-05-28 Completed [facility] 00:00:00 [facility] Pneumococcal 7 2004-05-28 Completed [facility] Conjugate, PCV7 00:00:00 [place] [facility] (Prevnar7) [facility] HEPATITIS A 2004-05-28 Completed [facility] 00:00:00 [facility] Pneumococcal 7 2004-05-28 Completed [facility] Conjugate, PCV7 00:00:00 [place] [facility] (Prevnar7) [facility] HEPATITIS A 2004-05-28 Completed [facility] 00:00:00 [facility] HEPATITIS A 2004-05-28 Completed [facility] 00:00:00 [facility] Pneumococcal 7 2004-05-28 Completed [facility] Conjugate, PCV7 00:00:00 [place] [facility] (Prevnar7) [facility] HEPATITIS A 2004-05-28 Completed [facility] 00:00:00 [facility] Pneumococcal 7 2004-05-28 Completed [facility] Conjugate, PCV7 00:00:00 [place] [facility] (Prevnar7) [facility] HEPATITIS A 2004-05-28 Completed [facility] 00:00:00 [facility] Pneumococcal 7 2004-05-28 Completed [facility] Conjugate, PCV7 00:00:00 [place] [facility] (Prevnar7) [facility] HEPATITIS A 2004-05-28 Completed [facility] 00:00:00 [facility] Pneumococcal 7 2004-05-28 Completed [facility] Conjugate, PCV7 00:00:00 [place] [facility] (Prevnar7) [facility] HEPATITIS A 2004-05-28 Completed [facility] 00:00:00 [facility] Pneumococcal 7 2004-05-28 Completed [facility] Conjugate, PCV7 00:00:00 [place] [facility] (Prevnar7) [facility] Pneumococcal 7 2004-05-28 Completed [facility] Conjugate, PCV7 00:00:00 [place] [facility] (Prevnar7) [facility] HEPATITIS A 2004-05-28 Completed [facility] 00:00:00 [facility] Pneumococcal 7 2004-05-28 Completed [facility] Conjugate, PCV7 00:00:00 [place] [facility] (Prevnar7) [facility] HEPATITIS A 2004-05-28 Completed [facility] 00:00:00 [facility] Pneumococcal 7 2004-05-28 Completed [facility] Conjugate, PCV7 00:00:00 [place] [facility] (Prevnar7) [facility] HEPATITIS A 2004-05-28 Completed [facility] 00:00:00 [facility] Pneumococcal 7 2004-05-28 Completed [facility] Conjugate, PCV7 00:00:00 [place] [facility] (Prevnar7) [facility] HEPATITIS A 2004-05-28 Completed [facility] 00:00:00 [facility] Pneumococcal 7 2004-05-28 Completed [facility] Conjugate, PCV7 00:00:00 [place] [facility] (Prevnar7) [facility] HEPATITIS A 2004-05-28 Completed [facility] 00:00:00 [facility] HEPATITIS A 2004-05-28 Completed [facility] 00:00:00 [facility] Pneumococcal 7 2004-05-28 Completed [facility] Conjugate, PCV7 00:00:00 [place] [facility] (Prevnar7) [facility] HEPATITIS A 2004-05-28 Completed [facility] 00:00:00 [facility] Pneumococcal 7 2004-05-28 Completed [facility] Conjugate, PCV7 00:00:00 [place] [facility] (Prevnar7) [facility] HEPATITIS A 2004-05-28 Completed [facility] 00:00:00 [facility] Pneumococcal 7 2004-05-28 Completed [facility] Conjugate, PCV7 00:00:00 [place] [facility] (Prevnar7) [facility] HEPATITIS A 2004-05-28 Completed [facility] 00:00:00 [facility] Pneumococcal 7 2004-05-28 Completed [facility] Conjugate, PCV7 00:00:00 [place] [facility] (Prevnar7) [facility] HEPATITIS A 2004-05-28 Completed [facility] 00:00:00 [facility] Pneumococcal 7 2004-05-28 Completed [facility] Conjugate, PCV7 00:00:00 [place] [facility] (Prevnar7) [facility] Pneumococcal 7 2004-05-28 Completed [facility] Conjugate, PCV7 00:00:00 [place] [facility] (Prevnar7) [facility] HEPATITIS A 2004-05-28 Completed [facility] 00:00:00 [facility] Pneumococcal 7 2004-05-28 Completed [facility] Conjugate, PCV7 00:00:00 [place] [facility] (Prevnar7) [facility] HEPATITIS A 2004-05-28 Completed [facility] 00:00:00 [facility] Pneumococcal 7 2004-05-28 Completed [facility] Conjugate, PCV7 00:00:00 [place] [facility] (Prevnar7) [facility] HEPATITIS A 2004-05-28 Completed [facility] 00:00:00 [facility] Pneumococcal 7 2004-05-28 Completed [facility] of Conjugate, PCV7 00:00:00 [place] [facility] (Prevnar7) [facility] HEPATITIS A 2004-05-28 Completed [facility] 00:00:00 [facility] Pneumococcal 7 2004-05-28 Completed [facility] Conjugate, PCV7 00:00:00 [place] [facility] (Prevnar7) [facility] HEPATITIS A 2004-05-28 Completed [facility] 00:00:00 [facility] Pneumococcal 7 2004-05-28 Completed [facility] Conjugate, PCV7 00:00:00 [place] [facility] (Prevnar7) [facility] HEPATITIS A 2004-05-28 Completed [facility] 00:00:00 [facility] Pneumococcal 7 2004-05-28 Completed [facility] of Conjugate, PCV7 00:00:00 [place] [facility] (Prevnar7) [facility] HEPATITIS A 2004-05-28 Completed [facility] 00:00:00 [facility] HEPATITIS A 2004-05-28 Completed [facility] of 00:00:00 [facility] Pneumococcal 7 2004-05-28 Completed [facility] Conjugate, PCV7 00:00:00 [place] [facility] (Prevnar7) [facility] HIB 4 Dose Schedule 2003-08-04 Completed Unive rsity of 00:00:00 [facility] DTAP 2003-08-04 Completed [facility] of 00:00:00 [facility] HIB 4 Dose Schedule 2003-08-04 Completed Unive rsity of 00:00:00 [facility] DTAP 2003-08-04 Completed [facility] of 00:00:00 [facility] HIB 4 Dose Schedule 2003-08-04 Completed Unive rsity of 00:00:00 [facility] DTAP 2003-08-04 Completed [facility] of 00:00:00 [facility] HIB 4 Dose Schedule 2003-08-04 Completed Unive rsity of 00:00:00 [facility] DTAP 2003-08-04 Completed [facility] of 00:00:00 [facility] HIB 4 Dose Schedule 2003-08-04 Completed Unive rsity of 00:00:00 [facility] DTAP 2003-08-04 Completed [facility] of 00:00:00 [facility] HIB 4 Dose Schedule 2003-08-04 Completed Unive rsity of 00:00:00 [facility] DTAP 2003-08-04 Completed [facility] 00:00:00 [facility] HIB 4 Dose Schedule 2003-08-04 Completed Unive rsity of 00:00:00 [facility] DTAP 2003-08-04 Completed [facility] 00:00:00 [facility] HIB 4 Dose Schedule 2003-08-04 Completed Unive rsity of 00:00:00 [facility] DTAP 2003-08-04 Completed [facility] of 00:00:00 [facility] DTAP 2003-08-04 Completed [facility] 00:00:00 [facility] [place] HIB 4 Dose Schedule 2003-08-04 Completed Unive rsity of 00:00:00 [facility] HIB 4 Dose Schedule 2003-08-04 Completed Unive rsity of 00:00:00 [facility] DTAP 2003-08-04 Completed [facility] 00:00:00 [facility] [place] HIB 4 Dose Schedule 2003-08-04 Completed Unive rsity of 00:00:00 [facility] [place] DTAP 2003-08-04 Completed [facility] 00:00:00 [facility] [place] HIB 4 Dose Schedule 2003-08-04 Completed Unive rsity of 00:00:00 [facility] DTAP 2003-08-04 Completed [facility] 00:00:00 [facility] [place] HIB 4 Dose Schedule 2003-08-04 Completed Unive rsity of 00:00:00 [facility] DTAP 2003-08-04 Completed [facility] 00:00:00 [facility] [place] HIB 4 Dose Schedule 2003-08-04 Completed Unive rsity of 00:00:00 [facility] [place] DTAP 2003-08-04 Completed [facility] 00:00:00 [facility] [place] HIB 4 Dose Schedule 2003-08-04 Completed Unive rsity of 00:00:00 [facility] DTAP 2003-08-04 Completed [facility] 00:00:00 [facility] [place] HIB 4 Dose Schedule 2003-08-04 Completed Unive rsity of 00:00:00 [facility] DTAP 2003-08-04 Completed [facility] of 00:00:00 [facility] HIB 4 Dose Schedule 2003-08-04 Completed Unive rsity of 00:00:00 [facility] DTAP 2003-08-04 Completed [facility] of 00:00:00 [facility] HIB 4 Dose Schedule 2003-08-04 Completed Unive rsity of 00:00:00 [facility] DTAP 2003-08-04 Completed [facility] 00:00:00 [facility] HIB 4 Dose Schedule 2003-08-04 Completed Unive rsity of 00:00:00 [facility] DTAP 2003-08-04 Completed [facility] 00:00:00 [facility] HIB 4 Dose Schedule 2003-08-04 Completed Unive rsity of 00:00:00 [facility] DTAP 2003-08-04 Completed [facility] 00:00:00 [facility] DTAP 2003-08-04 Completed [facility] 00:00:00 [facility] HIB 4 Dose Schedule 2003-08-04 Completed Unive rsity of 00:00:00 [facility] HIB 4 Dose Schedule 2003-08-04 Completed Unive rsity of 00:00:00 [facility] DTAP 2003-08-04 Completed [facility] 00:00:00 [facility] [place] HIB 4 Dose Schedule 2003-08-04 Completed Unive rsity of 00:00:00 [facility] DTAP 2003-08-04 Completed [facility] 00:00:00 [facility] [place] HIB 4 Dose Schedule 2003-08-04 Completed Unive rsity of 00:00:00 [facility] DTAP 2003-08-04 Completed [facility] of 00:00:00 [facility] HIB 4 Dose Schedule 2003-08-04 Completed Unive rsity of 00:00:00 [facility] DTAP 2003-08-04 Completed [facility] 00:00:00 [facility] HIB 4 Dose Schedule 2003-08-04 Completed Unive rsity of 00:00:00 [facility] DTAP 2003-08-04 Completed [facility] 00:00:00 [facility] HIB 4 Dose Schedule 2003-08-04 Completed Unive rsity of 00:00:00 [facility] DTAP 2003-08-04 Completed [facility] 00:00:00 [facility] HIB 4 Dose Schedule 2003-08-04 Completed Unive rsity of 00:00:00 [facility] DTAP 2003-08-04 Completed University of [...] Branch DTAP 2003-08-04 Completed [facility] 00:00:00 [facility] HIB 4 Dose Schedule 2003-08-04 Completed Unive rsity of 00:00:00 [facility] DTAP 2003-08-04 Completed [facility] 00:00:00 [facility] HIB 4 Dose Schedule 2003-08-04 Completed Unive rsity of 00:00:00 [facility] DTAP 2003-08-04 Completed [facility] 00:00:00 [facility] HIB 4 Dose Schedule 2003-08-04 Completed Unive rsity of 00:00:00 [facility] DTAP 2003-08-04 Completed [facility] 00:00:00 [facility] HIB 4 Dose Schedule 2003-08-04 Completed Unive rsity of 00:00:00 [facility] DTAP 2003-08-04 Completed [facility] 00:00:00 [facility] HIB 4 Dose Schedule 2003-08-04 Completed Unive rsity of 00:00:00 [facility] DTAP 2003-08-04 Completed [facility] 00:00:00 [facility] HIB 4 Dose Schedule 2003-08-04 Completed Unive rsity of 00:00:00 [facility] DTAP 2003-08-04 Completed [facility] 00:00:00 [facility] HIB 4 Dose Schedule 2003-08-04 Completed [facility]ive rsity of 00:00:00 [facility] DTAP 2003-08-04 Completed [facility] 00:00:00 [facility] DTAP 2003-08-04 Completed [facility] 00:00:00 [facility] HIB 4 Dose Schedule 2003-08-04 [...] Schedule 2003-08-04 Completed [facility]ive rsity of 00:00:00 [facility] DTAP 2003-08-04 Completed [facility] 00:00:00 [facility] HIB 4 Dose Schedule 2003-08-04 Completed [facility]ive rsity of 00:00:00 [facility] DTAP 2003-08-04 Completed [facility] 00:00:00 [facility] HIB 4 Dose Schedule 2003-08-04 Completed [facility]ive rsity of 00:00:00 [facility] DTAP 2003-08-04 Completed [facility] 00:00:00 [facility] HIB 4 Dose Schedule 2003-08-04 Completed [facility] 00:00:00 [facility] DTAP 2003-08-04 Completed [facility] 00:00:00 [facility] HIB 4 Dose Schedule 2003-08-04 Completed [facility] 00:00:00 [facility] DTAP 2003-08-04 Completed [facility] 00:00:00 [facility] DTAP 2003-08-04 Completed [facility] 00:00:00 [facility] HIB 4 Dose Schedule 2003-08-04 Completed [facility] 00:00:00 [facility] HIB 4 Dose Schedule 2003-08-04 Completed [facility] 00:00:00 [facility] DTAP 2003-08-04 Completed [facility] 00:00:00 [facility] HIB 4 Dose Schedule 2003-08-04 Completed [facility] 00:00:00 [facility] DTAP 2003-08-04 Completed [facility] 00:00:00 [facility] HIB 4 Dose Schedule 2003-08-04 Completed [facility] 00:00:00 [facility] DTAP 2003-08-04 Completed [facility] 00:00:00 [facility] HIB 4 Dose Schedule 2003-08-04 [...] Schedule 2003-08-04 Completed [facility] 00:00:00 [facility] HIB 4 Dose Schedule 2003-08-04 [...] Branch DTAP 2003-08-04 Completed [facility] 00:00:00 [facility] HIB 4 Dose Schedule 2003-08-04 Completed [facility] 00:00:00 [facility] DTAP 2003-08-04 Completed [facility] 00:00:00 [facility] HIB 4 Dose Schedule 2003-08-04 Completed [facility] 00:00:00 [facility] DTAP 2003-08-04 Completed [facility] 00:00:00 [facility] HIB 4 Dose Schedule 2003-08-04 Completed [facility] 00:00:00 [facility] DTAP 2003-08-04 Completed [facility] 00:00:00 [facility] HIB 4 Dose Schedule 2003-08-04 Completed [facility] 00:00:00 [facility] DTAP 2003-08-04 Completed [facility] [...] Branch DTAP 2003-08-04 Completed [facility] 00:00:00 [facility] HIB 4 Dose Schedule 2003-08-04 Completed [facility] 00:00:00 [facility] DTAP 2003-08-04 Completed [facility] 00:00:00 [facility] HIB 4 Dose Schedule 2003-08-04 Completed [facility] 00:00:00 [facility] DTAP 2003-08-04 Completed [facility] 00:00:00 [facility] HIB 4 Dose Schedule 2003-08-04 Completed [facility] 00:00:00 [facility] DTAP 2003-08-04 Completed [facility] 00:00:00 [facility] [place] HIB 4 Dose Schedule 2003-08-04 Completed [facility] 00:00:00 [facility] DTAP 2003-08-04 Completed [facility] 00:00:00 [facility] [place] HIB 4 Dose Schedule 2003-08-04 Completed [facility] 00:00:00 [facility] DTAP 2003-08-04 Completed [facility] 00:00:00 [facility] [place] HIB 4 Dose Schedule 2003-08-04 Completed [facility] 00:00:00 [facility] DTAP 2003-08-04 Completed [facility] 00:00:00 [facility] [place] HIB 4 Dose Schedule 2003-08-04 Completed [facility] 00:00:00 [facility] DTAP 2003-08-04 Completed [facility] 00:00:00 [facility] DTAP 2003-08-04 Completed [facility] 00:00:00 [facility] [place] HIB 4 Dose Schedule 2003-08-04 Completed [facility] 00:00:00 [facility] HIB 4 Dose Schedule 2003-08-04 Completed [facility] 00:00:00 [facility] DTAP 2003-08-04 Completed [facility] 00:00:00 [facility] HIB 4 Dose Schedule 2003-08-04 [...] Schedule 2003-08-04 Completed [facility] 00:00:00 [facility] DTAP 2003-08-04 Completed [facility] 00:00:00 [facility] HIB 4 Dose Schedule 2003-08-04 Completed [facility] 00:00:00 [facility] DTAP 2003-08-04 Completed [facility] 00:00:00 [facility] HIB 4 Dose Schedule 2003-08-04 Completed [facility] 00:00:00 [facility] DTAP 2003-08-04 Completed [facility] 00:00:00 [facility] HIB 4 Dose Schedule 2003-08-04 Completed [facility] 00:00:00 [facility] DTAP 2003-08-04 Completed [facility] 00:00:00 [facility] HIB 4 Dose Schedule 2003-08-04 Completed [facility] 00:00:00 [facility] DTAP 2003-08-04 Completed [facility] 00:00:00 [facility] HIB 4 Dose Schedule 2003-08-04 Completed [facility] 00:00:00 [facility] DTAP 2003-08-04 Completed [facility] 00:00:00 [facility] HIB 4 Dose Schedule 2003-08-04 Completed [facility] 00:00:00 [facility] DTAP 2003-08-04 Completed [facility] 00:00:00 [facility] HIB 4 Dose Schedule 2003-08-04 Completed [facility] 00:00:00 [facility] DTAP 2003-08-04 Completed [facility] 00:00:00 [facility] DTAP 2003-08-04 Completed [facility] 00:00:00 [facility] HIB 4 Dose Schedule 2003-08-04 Completed [facility] 00:00:00 [facility] HIB 4 Dose Schedule 2003-08-04 Completed [facility] 00:00:00 [facility] DTAP 2003-08-04 Completed [facility] 00:00:00 [facility] MMR 2003-05-05 Completed [facility] 00:00:00 [facility] Polio (IPV/OPV) 2003-05-05 Completed [facility] 00:00:00 [facility] Pneumococcal 7 2003-05-05 Completed [facility] of Conjugate, PCV7 00:00:00 [facility] ical (Prevnar7) Branch MMR 2003-05-05 Completed [facility] 00:00:00 [facility] 2003-05-05 Completed [facility] 00:00:00 [facility] Polio (IPV/OPV) 2003-05-05 Completed [facility] 00:00:00 [facility] Pneumococcal 7 2003-05-05 Completed [facility] Conjugate, PCV7 00:00:00 [facility] (Pre[facility]ar7) [facility] Polio (IPV/OPV) 2003-05-05 Completed [facility] 00:00:00 [facility] 2003-05-05 Completed [facility] 00:00:00 [facility] Polio (IPV/OPV) 2003-05-05 Completed [facility] 00:00:00 [facility] Pneumococcal 7 2003-05-05 Completed [facility] Conjugate, PCV7 00:00:00 [facility] 2003-05-05 Completed [facility] 00:00:00 [facility] Polio (IPV/OPV) 2003-05-05 Completed [facility] 00:00:00 [facility] Pneumococcal 7 2003-05-05 Completed [facility] Conjugate, PCV7 00:00:00 [facility] (Prevnar7) [facility] Pneumococcal 7 2003-05-05 Completed [facility] Conjugate, PCV7 00:00:00 [facility] 2003-05-05 Completed [facility] 00:00:00 [facility] Polio (IPV/OPV) 2003-05-05 Completed [facility] 00:00:00 [facility] Pneumococcal 7 2003-05-05 Completed [facility] Conjugate, PCV7 00:00:00 [facility] (Pre[facility] 2003-05-05 Completed [facility] 00:00:00 [facility] Polio (IPV/OPV) 2003-05-05 Completed [facility] 00:00:00 [facility] Pneumococcal 7 2003-05-05 Completed [facility] Conjugate, PCV7 00:00:00 [facility] 2003-05-05 Completed [facility] 00:00:00 [facility] Polio (IPV/OPV) 2003-05-05 Completed [facility] 00:00:00 [facility] Pneumococcal 7 2003-05-05 Completed [facility] Conjugate, PCV7 00:00:00 [facility] (Pre[facility]ar[facility] 2003-05-05 Completed [facility] 00:00:00 [facility] Polio (IPV/OPV) 2003-05-05 Completed [facility] 00:00:00 [facility] Pneumococcal 7 2003-05-05 Completed [facility] Conjugate, PCV7 00:00:00 [facility] 2003-05-05 Completed [facility] 00:00:00 [facility] Polio (IPV/OPV) 2003-05-05 Completed [facility] 00:00:00 [facility] Pneumococcal 7 2003-05-05 Completed [facility] Conjugate, PCV7 00:00:00 [facility] (Pre[facility] 2003-05-05 Completed [facility] 00:00:00 [facility] Polio (IPV/OPV) 2003-05-05 Completed [facility] 00:00:00 [facility] Pneumococcal 7 2003-05-05 Completed [facility] Conjugate, PCV7 00:00:00 [facility] (Pre[facility] 2003-05-05 Completed [facility] 00:00:00 [facility] 2003-05-05 Completed [facility] 00:00:00 [facility] Polio (IPV/OPV) 2003-05-05 Completed [facility] 00:00:00 [facility] Pneumococcal 7 2003-05-05 Completed [facility] Conjugate, PCV7 00:00:00 [facility]Pre[facility] 2003-05-05 Completed [facility] 00:00:00 [facility] Polio (IPV/OPV) 2003-05-05 Completed [facility] 00:00:00 [facility] Polio (IPV/OPV) 2003-05-05 Completed [facility] 00:00:00 [facility] Pneumococcal 7 2003-05-05 Completed [facility] Conjugate, PCV7 00:00:00 [facility] 2003-05-05 Completed [facility] 00:00:00 [facility] Polio (IPV/OPV) 2003-05-05 Completed [facility] 00:00:00 [facility] Pneumococcal 7 2003-05-05 Completed [facility] Conjugate, PCV7 00:00:00 [facility] (Prevnar7) [facility] Pneumococcal 7 2003-05-05 Completed [facility] Conjugate, PCV7 00:00:00 [facility]ar[facility] 2003-05-05 Completed [facility] 00:00:00 [facility] Polio (IPV/OPV) 2003-05-05 Completed [facility] 00:00:00 [facility] Pneumococcal 7 2003-05-05 Completed [facility] Conjugate, PCV7 00:00:00 [facility] 2003-05-05 Completed [facility] 00:00:00 [facility] Polio (IPV/OPV) 2003-05-05 Completed [facility] 00:00:00 [facility] Pneumococcal 7 2003-05-05 Completed [facility] Conjugate, PCV7 00:00:00 [facility] 2003-05-05 Completed [facility] 00:00:00 [facility] Polio (IPV/OPV) 2003-05-05 Completed [facility] 00:00:00 [facility] Pneumococcal 7 2003-05-05 Completed [facility] Conjugate, PCV7 00:00:00 [facility] 2003-05-05 Completed [facility] 00:00:00 [facility] Polio (IPV/OPV) 2003-05-05 Completed [facility] 00:00:00 [facility] Pneumococcal 7 2003-05-05 Completed [facility] Conjugate, PCV7 00:00:00 [facility]ar[facility] 2003-05-05 Completed [facility] 00:00:00 [facility] Polio (IPV/OPV) 2003-05-05 Completed [facility] 00:00:00 [facility] Pneumococcal 7 2003-05-05 Completed [facility] Conjugate, PCV7 00:00:00 [facility] ([facility] 2003-05-05 Completed [facility] 00:00:00 [facility] Polio (IPV/OPV) 2003-05-05 Completed [facility] 00:00:00 [facility] Pneumococcal 7 2003-05-05 Completed [facility] Conjugate, PCV7 00:00:00 [facility] 2003-05-05 Completed [facility] 00:00:00 [facility] Polio (IPV/OPV) 2003-05-05 Completed [facility] 00:00:00 [facility] Pneumococcal 7 2003-05-05 Completed [facility] Conjugate, PCV7 00:00:00 [facility] 2003-05-05 Completed [facility] 00:00:00 [facility] Polio (IPV/OPV) 2003-05-05 Completed [facility] 00:00:00 [facility] Pneumococcal 7 2003-05-05 Completed [facility] Conjugate, PCV7 00:00:00 [facility] (Pre[facility] 2003-05-05 Completed [facility] 00:00:00 [facility] 2003-05-05 Completed [facility] 00:00:00 [facility] Polio (IPV/OPV) 2003-05-05 Completed [facility] 00:00:00 [facility] Pneumococcal 7 2003-05-05 Completed [facility] Conjugate, PCV7 00:00:00 [facility] (Prevnar7) [facility] Polio (IPV/OPV) 2003-05-05 Completed [facility] 00:00:00 [facility] 2003-05-05 Completed [facility] 00:00:00 [facility] Polio (IPV/OPV) 2003-05-05 Completed [facility] 00:00:00 [facility] Pneumococcal 7 2003-05-05 Completed [facility] Conjugate, PCV7 00:00:00 [facility] 2003-05-05 Completed [facility] 00:00:00 [facility] Polio (IPV/OPV) 2003-05-05 Completed [facility] 00:00:00 [facility] Pneumococcal 7 2003-05-05 Completed [facility] Conjugate, PCV7 00:00:00 [facility] (Prevnar7) [facility] Pneumococcal 7 2003-05-05 Completed [facility] Conjugate, PCV7 00:00:00 [facility] (Pre[facility]ar[facility] 2003-05-05 Completed [facility] 00:00:00 [facility] Polio (IPV/OPV) 2003-05-05 Completed [facility] 00:00:00 [facility] Pneumococcal 7 2003-05-05 Completed [facility] Conjugate, PCV7 00:00:00 [facility] (Pre[facility]ar[facility] 2003-05-05 Completed [facility] 00:00:00 [facility] Polio (IPV/OPV) 2003-05-05 Completed [facility] 00:00:00 [facility] Pneumococcal 7 2003-05-05 Completed [facility] Conjugate, PCV7 00:00:00 [facility] (Pre[facility] 2003-05-05 Completed [facility] 00:00:00 [facility] Polio (IPV/OPV) 2003-05-05 Completed [facility] 00:00:00 [facility] Pneumococcal 7 2003-05-05 Completed [facility] Conjugate, PCV7 00:00:00 [facility] (Pre[facility]ar7[facility] 2003-05-05 Completed [facility] 00:00:00 [facility] Polio (IPV/OPV) 2003-05-05 Completed [facility] 00:00:00 [facility] Pneumococcal 7 2003-05-05 Completed [facility] Conjugate, PCV7 00:00:00 [facility] (Pre[facility]ar[facility] 2003-05-05 Completed [facility] 00:00:00 [facility] Polio (IPV/OPV) 2003-05-05 Completed [facility] 00:00:00 [facility] Pneumococcal 7 2003-05-05 Completed [facility] Conjugate, PCV7 00:00:00 [facility] (Prevnar7[facility] 2003-05-05 Completed [facility] 00[facility]00:00 [facility] 2003-05-05 Completed [facility] 00:00:00 [facility] Polio (IPV/OPV) 2003-05-05 Completed [facility] 00:00:00 [facility] Pneumococcal 7 2003-05-05 Completed [facility] Conjugate, PCV7 00:00:00 [facility] (Prevnar7) [facility] Polio (IPV/OPV) 2003-05-05 Completed [facility] 00:00:00 [facility] 2003-05-05 Completed [facility] 00:00:00 [facility] Polio (IPV/OPV) 2003-05-05 Completed [facility] 00:00:00 [facility] Pneumococcal 7 2003-05-05 Completed [facility] Conjugate, PCV7 00:00:00 [facility] (Prevnar7[facility] 2003-05-05 Completed [facility] 00:00:00 [facility] Polio (IPV/OPV) 2003-05-05 Completed [facility] 00:00:00 [facility] Pneumococcal 7 2003-05-05 Completed [facility] Conjugate, PCV7 00:00:00 [facility] (Prevnar7) [facility] Pneumococcal 7 2003-05-05 Completed [facility] Conjugate, PCV7 00:00:00 [facility] (Prevnar7[facility] 2003-05-05 Completed [facility] 00:00:00 [facility] Polio (IPV/OPV) 2003-05-05 Completed [facility] 00:00:00 [facility] Pneumococcal 7 2003-05-05 Completed [facility] Conjugate, PCV7 00:00:00 [facility] (Pre[facility]ar[facility] 2003-05-05 Completed [facility] 00:00:00 [facility] Polio (IPV/OPV) 2003-05-05 Completed [facility] 00:00:00 [facility] Pneumococcal 7 2003-05-05 Completed [facility] Conjugate, PCV7 00:00:00 [facility] (Pre[facility]ar7[facility] 2003-05-05 Completed [facility] 00:00:00 [facility] Polio (IPV/OPV) 2003-05-05 Completed [facility] 00:00:00 [facility] Pneumococcal 7 2003-05-05 Completed [facility] Conjugate, PCV7 00:00:00 [facility] (Pre[facility]ar[facility] 2003-05-05 Completed [facility] 00:00:00 [facility] Polio (IPV/OPV) 2003-05-05 Completed [facility] 00:00:00 [facility] Pneumococcal 7 2003-05-05 Completed [facility] Conjugate, PCV7 00:00:00 [facility] (Pre[facility]ar[facility] 2003-05-05 Completed [facility] 00:00:00 [facility] Polio (IPV/OPV) 2003-05-05 Completed [facility] 00:00:00 [facility] Pneumococcal 7 2003-05-05 Completed [facility] Conjugate, PCV7 00:00:00 [facility] (Prevnar7[facility] 2003-05-05 Completed [facility] 00:00:00 [facility] Polio (IPV/OPV) 2003-05-05 Completed [facility] 00:00:00 [facility] Pneumococcal 7 2003-05-05 Completed [facility] Conjugate, PCV7 00:00:00 [facility] (Pre[facility]ar[facility] 2003-05-05 Completed [facility] 00:00:00 [facility] Polio (IPV/OPV) 2003-05-05 Completed [facility] 00:00:00 [facility] 2003-05-05 Completed [facility] 00:00:00 [facility] Pneumococcal 7 2003-05-05 Completed [facility] Conjugate, PCV7 00:00:00 [facility] (Prevnar7[facility] 2003-05-05 Completed [facility] 00:00:00 [facility] Polio (IPV/OPV) 2003-05-05 Completed [facility] 00:00:00 [facility] Pneumococcal 7 2003-05-05 Completed [facility] Conjugate, PCV7 00:00:00 [facility] (Prevnar7) [facility] Polio (IPV/OPV) 2003-05-05 Completed [facility] 00:00:00 [facility] 2003-05-05 Completed [facility] 00:00:00 [facility] Polio (IPV/OPV) 2003-05-05 Completed [facility] 00:00:00 [facility] Pneumococcal 7 2003-05-05 Completed [facility] Conjugate, PCV7 00:00:00 [facility] (Prevnar7) [facility] Pneumococcal 7 2003-05-05 Completed [facility] Conjugate, PCV7 00:00:00 [facility] (Pre[facility]ar[facility]) [facility] 2003-05-05 Completed [facility] 00:00:00 [facility] Polio (IPV/OPV) 2003-05-05 Completed [facility] 00:00:00 [facility] Pneumococcal 7 2003-05-05 Completed [facility] Conjugate, PCV7 00:00:00 [facility] (Prevnar7[facility] 2003-05-05 Completed [facility] 00:00:00 [facility] Polio (IPV/OPV) 2003-05-05 Completed [facility] 00:00:00 [facility] Pneumococcal 7 2003-05-05 Completed [facility] Conjugate, PCV7 00:00:00 [facility] (Prevnar7) [facility] 2003-05-05 Completed [facility] 00:00:00 [facility] Polio (IPV/OPV) 2003-05-05 Completed [facility] 00:00:00 [facility] Pneumococcal 7 2003-05-05 Completed [facility] Conjugate, PCV7 00:00:00 [facility] (Prevnar7[facility] 2003-05-05 Completed [facility] 00:00:00 [facility] Polio (IPV/OPV) 2003-05-05 Completed [facility] 00:00:00 [facility] Pneumococcal 7 2003-05-05 Completed [facility] Conjugate, PCV7 00:00:00 [facility] (Prevnar[facility] 2003-05-05 Completed [facility] 00[facility]00:00 [facility] 2003-05-05 Completed [facility] 00:00:00 [facility] Polio (IPV/OPV) 2003-05-05 Completed [facility] 00:00:00 [facility] Polio (IPV/OPV) 2003-05-05 Completed [facility] 00:00:00 [facility] Pneumococcal 7 2003-05-05 Completed [facility] Conjugate, PCV7 00:00:00 [facility] (Pre[facility]ar[facility] 2003-05-05 Completed [facility] 00:00:00 [facility] Polio (IPV/OPV) 2003-05-05 Completed [facility] 00:00:00 [facility] Pneumococcal 7 2003-05-05 Completed [facility] Conjugate, PCV7 00:00:00 [facility] (Pre[facility]ar7) [place] Pneumococcal 7 2003-05-05 Completed [facility] Conjugate, PCV7 00:00:00 [facility] (Prevnar7[facility] 2003-05-05 Completed [facility] 00:00:00 [facility] Polio (IPV/OPV) 2003-05-05 Completed [facility] 00:00:00 [facility] Pneumococcal 7 2003-05-05 Completed [facility] Conjugate, PCV7 00:00:00 [place] [facility] (Pre[facility]ar[facility]) [facility] 2003-05-05 Completed [facility] 00:00:00 [facility] Polio (IPV/OPV) 2003-05-05 Completed [facility] 00:00:00 [facility] Pneumococcal 7 2003-05-05 Completed [facility] Conjugate, PCV7 00:00:00 [facility] (Pre[facility]ar7[facility] 2003-05-05 Completed [facility] 00:00:00 [facility] Polio (IPV/OPV) 2003-05-05 Completed [facility] 00:00:00 [facility] Pneumococcal 7 2003-05-05 Completed [facility] Conjugate, PCV7 00:00:00 [facility] (Pre[facility]ar[facility] 2003-05-05 Completed [facility] 00:00:00 [facility] Polio (IPV/OPV) 2003-05-05 Completed [facility] 00:00:00 [facility] Pneumococcal 7 2003-05-05 Completed [facility] Conjugate, PCV7 00:00:00 [facility] (Pre[facility]ar[facility] 2003-05-05 Completed [facility] 00:00:00 [facility] Polio (IPV/OPV) 2003-05-05 Completed [facility] 00:00:00 [facility] Pneumococcal 7 2003-05-05 Completed [facility] Conjugate, PCV7 00:00:00 [facility] 2003-05-05 Completed [facility] 00:00:00 [facility] 2003-05-05 Completed [facility] of 00:00:00 [facility] Polio (IPV/OPV) 2003-05-05 Completed [facility]it [facility] of 00:00:00 [facility] Pneumococcal 7 2003-05-05 Completed [facility] of Conjugate, PCV7 00:00:00 [facility] (Prevnar7) [facility] Polio (IPV/OPV) 2003-05-05 Completed [facility] of 00:00:00 [facility] 2003-05-05 Completed [facility] of 00:00:00 [facility] Polio (IPV/OPV) 2003-05-05 Completed [facility]it [facility] of 00:00:00 [facility] Pneumococcal 7 2003-05-05 Completed [facility] Conjugate, PCV7 00:00:00 [facility] (Pre[facility] 2003-05-05 Completed [facility] 00:00:00 [facility] Polio (IPV/OPV) 2003-05-05 Completed [facility]it [facility] of 00:00:00 [facility] Pneumococcal 7 2003-05-05 Completed [facility] Conjugate, PCV7 00:00:00 [facility] (Prevnar7) [facility] Pneumococcal 7 2003-05-05 Completed [facility] Conjugate, PCV7 00:00:00 [facility] ([facility] 2003-05-05 Completed [facility] 00:00:00 [facility] Polio (IPV/OPV) 2003-05-05 Completed [facility]it [facility] of 00:00:00 [facility] Pneumococcal 7 2003-05-05 Completed [facility] Conjugate, PCV7 00:00:00 [facility] ([facility] 2003-05-05 Completed [facility] 00:00:00 [facility] Polio (IPV/OPV) 2003-05-05 Completed [facility] 00:00:00 [facility] Pneumococcal 7 2003-05-05 Completed [facility] Conjugate, PCV7 00:00:00 [facility] (Pre[facility] 2003-05-05 Completed [facility] 00:00:00 [facility] Polio (IPV/OPV) 2003-05-05 Completed [facility]it [facility] of 00:00:00 [facility] Pneumococcal 7 2003-05-05 Completed [facility] Conjugate, PCV7 00:00:00 [facility] (Pre[facility] 2003-05-05 Completed [facility] 00:00:00 [facility] Polio (IPV/OPV) 2003-05-05 Completed [facility] 00:00:00 [facility] Pneumococcal 7 2003-05-05 Completed [facility] Conjugate, PCV7 00:00:00 [facility] ([facility] 2003-05-05 Completed [facility] 00:00:00 [facility] Polio (IPV/OPV) 2003-05-05 Completed [facility] of 00:00:00 [facility] Pneumococcal 7 2003-05-05 Completed [facility] Conjugate, PCV7 00:00:00 [facility] (Pre[facility] 2003-05-05 Completed [facility] 00:00:00 [facility] Polio (IPV/OPV) 2003-05-05 Completed [facility]it [facility] of 00:00:00 [facility] Pneumococcal 7 2003-05-05 Completed [facility] Conjugate, PCV7 00:00:00 [facility] (Pre[facility]ar[facility]) [facility] 2003-05-05 Completed [facility] of 00:00:00 [facility] 2003-05-05 Completed [facility] of 00:00:00 [facility] Polio (IPV/OPV) 2003-05-05 Completed [facility]it [facility] of 00:00:00 [facility] Pneumococcal 7 2003-05-05 Completed [facility] Conjugate, PCV7 00:00:00 [facility] (Prevnar7) [facility] Polio (IPV/OPV) 2003-05-05 Completed [facility] 00:00:00 [facility] 2003-05-05 Completed [facility] 00:00:00 [facility] Polio (IPV/OPV) 2003-05-05 Completed [facility]it [facility] of 00:00:00 [facility] Pneumococcal 7 2003-05-05 Completed [facility] Conjugate, PCV7 00:00:00 [facility] (Prevnar7) [facility] Pneumococcal 7 2003-05-05 Completed [facility] Conjugate, PCV7 00:00:00 [facility] (Pre[facility]ar[facility] 2003-05-05 Completed [facility] 00:00:00 [facility] Polio (IPV/OPV) 2003-05-05 Completed [facility] of 00:00:00 [facility] Pneumococcal 7 2003-05-05 Completed [facility] Conjugate, PCV7 00:00:00 [facility] (Pre[facility]ar[facility] 2003-05-05 Completed [facility] 00:00:00 [facility] Polio (IPV/OPV) 2003-05-05 Completed [facility] of 00:00:00 [facility] Pneumococcal 7 2003-05-05 Completed [facility] Conjugate, PCV7 00:00:00 [facility] (Pre[facility]ar[facility] 2003-05-05 Completed [facility] 00:00:00 [facility] Polio (IPV/OPV) 2003-05-05 Completed [facility] 00:00:00 [facility] Pneumococcal 7 2003-05-05 Completed [facility] Conjugate, PCV7 00:00:00 [facility] (Pre[facility]ar[facility] 2003-05-05 Completed [facility] 00:00:00 [facility] Polio (IPV/OPV) 2003-05-05 Completed [facility] of 00:00:00 [facility] Pneumococcal 7 2003-05-05 Completed [facility] Conjugate, PCV7 00:00:00 [facility] (Pre[facility]ar[facility] 2003-05-05 Completed [facility] 00:00:00 [facility] Polio (IPV/OPV) 2003-05-05 Completed [facility] of 00:00:00 [facility] Pneumococcal 7 2003-05-05 Completed [facility] Conjugate, PCV7 00:00:00 [facility] (Pre[facility]ar[facility] 2003-05-05 Completed [facility] 00:00:00 [facility] Polio (IPV/OPV) 2003-05-05 Completed [facility] of 00:00:00 [facility] Pneumococcal 7 2003-05-05 Completed [facility] Conjugate, PCV7 00:00:00 [facility] (Pre[facility]ar[facility] 2003-05-05 Completed [facility] of 00:00:00 [facility] Polio (IPV/OPV) 2003-05-05 Completed [facility] 00:00:00 [facility] Pneumococcal 7 2003-05-05 Completed [facility] Conjugate, PCV7 00:00:00 [facility] 2003-05-05 Completed [facility] 00:00:00 [facility] 2003-05-05 Completed [facility] of 00:00:00 [facility] Polio (IPV/OPV) 2003-05-05 Completed [facility] of 00:00:00 [facility] Pneumococcal 7 2003-05-05 Completed [facility] Conjugate, PCV7 00:00:00 [facility] (Prevnar7) [facility] Polio (IPV/OPV) 2003-05-05 Completed [facility] of 00:00:00 [facility] 2003-05-05 Completed [facility] of 00:00:00 [facility] Polio (IPV/OPV) 2003-05-05 Completed [facility]it [facility] of 00:00:00 [facility] Pneumococcal 7 2003-05-05 Completed [facility] Conjugate, PCV7 00:00:00 [facility] (Pre[facility]ar[facility] 2003-05-05 Completed [facility] 00:00:00 [facility] Pneumococcal 7 2003-05-05 Completed [facility] Conjugate, PCV7 00:00:00 [facility] (Prevnar7) [facility] Polio (IPV/OPV) 2003-05-05 Completed [facility] 00:00:00 [facility] Pneumococcal 7 2003-05-05 Completed [facility] Conjugate, PCV7 00:00:00 [facility] (Pre[facility]ar[facility] 2003-05-05 Completed [facility] 00:00:00 [facility] Polio (IPV/OPV) 2003-05-05 Completed [facility] 00:00:00 [facility] Pneumococcal 7 2003-05-05 Completed [facility] Conjugate, PCV7 00:00:00 [facility] (Pre[facility]ar[facility] 2003-05-05 Completed [facility] of 00:00:00 [facility] Polio (IPV/OPV) 2003-05-05 Completed [facility] of 00:00:00 [facility] Pneumococcal 7 2003-05-05 Completed [facility] Conjugate, PCV7 00:00:00 [facility] (Pre[facility]ar[facility] 2003-05-05 Completed [facility] 00:00:00 [facility] Polio (IPV/OPV) 2003-05-05 Completed [facility] of 00:00:00 [facility] Pneumococcal 7 2003-05-05 Completed [facility] Conjugate, PCV7 00:00:00 [facility] (Pre[facility] 2003-05-05 Completed [facility] 00:00:00 [facility] Polio (IPV/OPV) 2003-05-05 Completed [facility] 00:00:00 [facility] Pneumococcal 7 2003-05-05 Completed [facility] Conjugate, PCV7 00:00:00 [facility] (Pre[facility]ar[facility] 2003-05-05 Completed [facility] 00:00:00 [facility] Polio (IPV/OPV) 2003-05-05 Completed [facility] 00:00:00 [facility] Pneumococcal 7 2003-05-05 Completed [facility] Conjugate, PCV7 00:00:00 [facility] (Prevnar7) [facility] 2003-05-05 Completed [facility] 00:00:00 [facility] Polio (IPV/OPV) 2003-05-05 Completed [facility] 00:00:00 [facility] Pneumococcal 7 2003-05-05 Completed [facility] Conjugate, PCV7 00:00:00 [facility] (Prevnar7[facility] 2003-05-05 Completed [facility] 00:00:00 [facility] Polio (IPV/OPV) 2003-05-05 Completed [facility] 00:00:00 [facility] Pneumococcal 7 2003-05-05 Completed [facility] Conjugate, PCV7 00:00:00 [facility] (Prevnar7) [facility] HIB 4 Dose Schedule 2002 Completed Unive rsity of 00:00:00 [facility] Hep B, Adol or Pedi 2002 Completed Unive rsity of Dosage 00:00:00 [facility] Hep B, Adol or Pedi 2002 Completed Unive rsity of Dosage 00:00:00 [facility] DTAP 2002 Completed University of 00:00:00 [facility] HIB 4 Dose Schedule 2002 Completed Unive rsity of 00:00:00 [facility] Hep B, Adol or Pedi 2002 Completed Unive rsity of Dosage 00:00:00 [facility] DTAP 2002 Completed [facility] of 00:00:00 [facility] HIB 4 Dose Schedule 2002 Completed Unive rsity of 00:00:00 [facility] Hep B, Adol or Pedi 2002 Completed Unive rsity of Dosage 00:00:00 [facility] DTAP 2002 Completed [facility] 00:00:00 [facility] HIB 4 Dose Schedule 2002 Completed Unive rsity of 00:00:00 [facility] Hep B, Adol or Pedi 2002 Completed Unive rsity of Dosage 00:00:00 [facility] DTAP 2002 Completed [facility] 00:00:00 [facility] HIB 4 Dose Schedule 2002 Completed Unive rsity of 00:00:00 [facility] Hep B, Adol or Pedi 2002 Completed Unive rsity of Dosage 00:00:00 [facility] DTAP 2002 Completed [facility] 00:00:00 [facility] HIB 4 Dose Schedule 2002 Completed Unive rsity of 00:00:00 [facility] Hep B, Adol or Pedi 2002 Completed Unive rsity of Dosage 00:00:00 [facility] DTAP 2002 Completed [facility] 00:00:00 [facility] HIB 4 Dose Schedule 2002 Completed Unive rsity of 00:00:00 [facility] Hep B, Adol or Pedi 2002 Completed Unive rsity of Dosage 00:00:00 [facility] DTAP 2002 Completed University of 00:00:00 [facility] HIB 4 Dose Schedule 2002 Completed Unive rsity of 00:00:00 [facility] Hep B, Adol or Pedi 2002 Completed Unive rsity of Dosage 00:00:00 [facility] DTAP 2002 Completed [facility] 00:00:00 [facility] DTAP 2002 Completed [facility] 00:00:00 [facility] HIB 4 Dose Schedule 2002 Completed Unive rsity of 00:00:00 [facility] Hep B, Adol or Pedi 2002 Completed Unive rsity of Dosage 00:00:00 [facility] HIB 4 Dose Schedule 2002 Completed Unive rsity of 00:00:00 [facility] DTAP 2002 Completed [facility] 00:00:00 [facility] HIB 4 Dose Schedule 2002 Completed Unive rsity of 00:00:00 [facility] Hep B, Adol or Pedi 2002 Completed Unive rsity of Dosage 00:00:00 [facility] Hep B, Adol or Pedi 2002 Completed Unive rsity of Dosage 00:00:00 [facility] DTAP 2002 Completed [facility] 00:00:00 [facility] HIB 4 Dose Schedule 2002 Completed Unive rsity of 00:00:00 [facility] Hep B, Adol or Pedi 2002 Completed Unive rsity of Dosage 00:00:00 [facility] DTAP 2002 Completed [facility] 00:00:00 [facility] HIB 4 Dose Schedule 2002 Completed Unive rsity of 00:00:00 [facility] Hep B, Adol or Pedi 2002 Completed Unive rsity of Dosage 00:00:00 [facility] DTAP 2002 Completed [facility] 00:00:00 [facility] HIB 4 Dose Schedule 2002 Completed Unive rsity of 00:00:00 [facility] Hep B, Adol or Pedi 2002 Completed Unive rsity of Dosage 00:00:00 [facility] DTAP 2002 Completed [facility] 00:00:00 [facility] HIB 4 Dose Schedule 2002 Completed Unive rsity of 00:00:00 [facility] Hep B, Adol or Pedi 2002 Completed Unive rsity of Dosage 00:00:00 [facility] DTAP 2002 Completed [facility] 00:00:00 [facility] HIB 4 Dose Schedule 2002 Completed Unive rsity of 00:00:00 [facility] Hep B, Adol or Pedi 2002 Completed Unive rsity of Dosage 00:00:00 [facility] DTAP 2002 Completed [facility] 00:00:00 [facility] HIB 4 Dose Schedule 2002 Completed Unive rsity of 00:00:00 [facility] Hep B, Adol or Pedi 2002 Completed Unive rsity of Dosage 00:00:00 [facility] DTAP 2002 Completed [facility] 00:00:00 [facility] HIB 4 Dose Schedule 2002 Completed Unive rsity of 00:00:00 [facility] Hep B, Adol or Pedi 2002 Completed Unive rsity of Dosage 00:00:00 [facility] DTAP 2002 Completed [facility] of 00:00:00 [facility] HIB 4 Dose Schedule 2002 Completed Unive rsity of 00:00:00 [facility] Hep B, Adol or Pedi 2002 Completed Unive rsity of Dosage 00:00:00 [facility] DTAP 2002 Completed [facility] of 00:00:00 [facility] DTAP 2002 Completed [facility] 00:00:00 [facility] HIB 4 Dose Schedule 2002 Completed Unive rsity of 00:00:00 [facility] Hep B, Adol or Pedi 2002 Completed Unive rsity of Dosage 00:00:00 [facility] DTAP 2002 Completed [facility] 00:00:00 [facility] HIB 4 Dose Schedule 2002 Completed Unive rsity of 00:00:00 [facility] HIB 4 Dose Schedule 2002 Completed Unive rsity of 00:00:00 [facility] Hep B, Adol or Pedi 2002 Completed Unive rsity of Dosage 00:00:00 [facility] DTAP 2002 Completed [facility] 00:00:00 [facility] HIB 4 Dose Schedule 2002 Completed Unive rsity of 00:00:00 [facility] Hep B, Adol or Pedi 2002 Completed Unive rsity of Dosage 00:00:00 [facility] Hep B, Adol or Pedi 2002 Completed Unive rsity of Dosage 00:00:00 [facility] DTAP 2002 Completed [facility] 00:00:00 [facility] HIB 4 Dose Schedule 2002 Completed Unive rsity of 00:00:00 [facility] Hep B, Adol or Pedi 2002 Completed Unive rsity of Dosage 00:00:00 [facility] DTAP 2002 Completed [facility] 00:00:00 [facility] HIB 4 Dose Schedule 2002 Completed Unive rsity of 00:00:00 [facility] Hep B, Adol or Pedi 2002 Completed Unive rsity of Dosage 00:00:00 [facility] DTAP 2002 Completed [facility] 00:00:00 [facility] HIB 4 Dose Schedule 2002 Completed Unive rsity of 00:00:00 [facility] Hep B, Adol or Pedi 2002 Completed Unive rsity of Dosage 00:00:00 [facility] DTAP 2002 Completed [facility] 00:00:00 [facility] HIB 4 Dose Schedule 2002 Completed Unive rsity of 00:00:00 [facility] Hep B, Adol or Pedi 2002 Completed Unive rsity of Dosage 00:00:00 [facility] DTAP 2002 Completed [facility] 00:00:00 [facility] HIB 4 Dose Schedule 2002 Completed Unive rsity of 00:00:00 [facility] Hep B, Adol or Pedi 2002 Completed Unive rsity of Dosage 00:00:00 [facility] DTAP 2002 Completed [facility] 00:00:00 [facility] HIB 4 Dose Schedule 2002 Completed Unive rsity of 00:00:00 [facility] Hep B, Adol or Pedi 2002 Completed Unive rsity of Dosage 00:00:00 [facility] DTAP 2002 Completed [facility] of 00:00:00 [facility] DTAP 2002 Completed [facility] of 00:00:00 [facility] HIB 4 Dose Schedule 2002 Completed Unive rsity of 00:00:00 [facility] Hep B, Adol or Pedi 2002 Completed Unive rsity of Dosage 00:00:00 [facility] HIB 4 Dose Schedule 2002 Completed Unive rsity of 00:00:00 [facility] DTAP 2002 Completed [facility] 00:00:00 [facility] HIB 4 Dose Schedule 2002 Completed Unive rsity of 00:00:00 [facility] Hep B, Adol or Pedi 2002 Completed Unive rsity of Dosage 00:00:00 [facility] Hep B, Adol or Pedi 2002 Completed [facility]ive rsity of Dosage 00:00:00 [facility] DTAP 2002 Completed [facility] 00:00:00 [facility] HIB 4 Dose Schedule 2002 Completed Unive rsity of 00:00:00 [facility] Hep B, Adol or Pedi 2002 Completed Unive rsity of Dosage 00:00:00 [facility] DTAP 2002 Completed [facility] 00:00:00 [facility] HIB 4 Dose Schedule 2002 Completed Unive rsity of 00:00:00 [facility] Hep B, Adol or Pedi 2002 Completed Unive rsity of Dosage 00:00:00 [facility] DTAP 2002 Completed [facility] 00:00:00 [facility] HIB 4 Dose Schedule 2002 Completed Unive rsity of 00:00:00 [facility] Hep B, Adol or Pedi 2002 Completed Unive rsity of Dosage 00:00:00 [facility] DTAP 2002 Completed [facility] 00:00:00 [facility] HIB 4 Dose Schedule 2002 Completed Unive rsity of 00:00:00 [facility] Hep B, Adol or Pedi 2002 Completed Unive rsity of Dosage 00:00:00 [facility] DTAP 2002 Completed [facility] 00:00:00 [facility] HIB 4 Dose Schedule 2002 Completed Unive rsity of 00:00:00 [facility] Hep B, Adol or Pedi 2002 Completed Unive rsity of Dosage 00:00:00 [facility] DTAP 2002 Completed [facility] 00:00:00 [facility] HIB 4 Dose Schedule 2002 Completed Unive rsity of 00:00:00 [facility] Hep B, Adol or Pedi 2002 Completed Unive rsity of Dosage 00:00:00 [facility] DTAP 2002 Completed [facility] 00:00:00 [facility] HIB 4 Dose Schedule 2002 Completed Unive rsity of 00:00:00 [facility] Hep B, Adol or Pedi 2002 Completed Unive rsity of Dosage 00:00:00 [facility] DTAP 2002 Completed [facility] 00:00:00 [facility] DTAP 2002 Completed [facility] 00:00:00 [facility] HIB 4 Dose Schedule 2002 Completed Unive [facility]ity of 00:00:00 [facility] Hep B, Adol or Pedi 2002 Completed [facility]ive rsity of Dosage 00:00:00 [facility] HIB 4 Dose Schedule 2002 Completed Unive [facility]ity of 00:00:00 [facility] DTAP 2002 Completed [facility] 00:00:00 [facility] HIB 4 Dose Schedule 2002 Completed [facility]ive [facility]ity of 00:00:00 [facility] Hep B, Adol or Pedi 2002 Completed Unive rsity of Dosage 00:00:00 [facility] DTAP 2002 Completed [facility] 00:00:00 [facility] Hep B, Adol or Pedi 2002 Completed [facility]ity of Dosage 00:00:00 [facility] HIB 4 Dose Schedule 2002 Completed [facility]ity of 00:00:00 [facility] Hep B, Adol or Pedi 2002 Completed [facility] of Dosage 00:00:00 [facility] DTAP 2002 Completed [facility] 00:00:00 [facility] HIB 4 Dose Schedule 2002 Completed [facility]ity of 00:00:00 [facility] Hep B, Adol or Pedi 2002 Completed Un[facility]ity of Dosage 00:00:00 [facility] DTAP 2002 Completed [facility] 00:00:00 [facility] HIB 4 Dose Schedule 2002 Completed [facility]ity of 00:00:00 [facility] Hep B, Adol or Pedi 2002 Completed [facility] of Dosage 00:00:00 [facility] DTAP 2002 Completed [facility] 00:00:00 [facility] HIB 4 Dose Schedule 2002 Completed [facility] of 00:00:00 [facility] Hep B, Adol or Pedi 2002 Completed [facility] of Dosage 00:00:00 [facility] DTAP 2002 Completed [facility] 00:00:00 [facility] HIB 4 Dose Schedule 2002 Completed [facility]ive [facility]ity of 00:00:00 [facility] DTAP 2002 Completed [facility] 00:00:00 [facility] Hep B, Adol or Pedi 2002 Completed [facility] of Dosage 00:00:00 [facility] HIB 4 Dose Schedule 2002 Completed [facility] of 00:00:00 [facility] DTAP 2002 Completed [facility] 00:00:00 [facility] HIB 4 Dose Schedule 2002 Completed [facility] of 00:00:00 [facility] Hep B, Adol or Pedi 2002 Completed [facility] of Dosage 00:00:00 [facility] DTAP 2002 Completed [facility] 00:00:00 [facility] Hep B, Adol or Pedi 2002 Completed [facility] of Dosage 00:00:00 [facility] HIB 4 Dose Schedule 2002 Completed [facility] of 00:00:00 [facility] Hep B, Adol or Pedi 2002 Completed [facility] of Dosage 00:00:00 [facility] DTAP 2002 Completed [facility] 00:00:00 [facility] HIB 4 Dose Schedule 2002 Completed [facility] of 00:00:00 [facility] Hep B, Adol or Pedi 2002 Completed [facility] of Dosage 00:00:00 [facility] DTAP 2002 Completed [facility] 00:00:00 [facility] HIB 4 Dose Schedule 2002 Completed [facility] of 00:00:00 [facility] Hep B, Adol or Pedi 2002 Completed [facility] of Dosage 00:00:00 [facility] DTAP 2002 Completed [facility] 00:00:00 [facility] HIB 4 Dose Schedule 2002 Completed [facility] of 00:00:00 [facility] Hep B, Adol or Pedi 2002 Completed [facility] of Dosage 00:00:00 [facility] DTAP 2002 Completed [facility] 00:00:00 [facility] HIB 4 Dose Schedule 2002 Completed [facility] of 00:00:00 [facility] Hep B, Adol or Pedi 2002 Completed [facility] of Dosage 00:00:00 [facility] DTAP 2002 Completed [facility] 00:00:00 [facility] HIB 4 Dose Schedule 2002 Completed [facility] of 00:00:00 [facility] Hep B, Adol or Pedi 2002 Completed [facility] of Dosage 00:00:00 [facility] DTAP 2002 Completed [facility] 00:00:00 [facility] DTAP 2002 Completed [facility] 00:00:00 [facility] HIB 4 Dose Schedule 2002 Completed [facility] of 00:00:00 [facility] Hep B, Adol or Pedi 2002 Completed [facility] of Dosage 00:00:00 [facility] HIB 4 Dose Schedule 2002 Completed [facility] of 00:00:00 [facility] DTAP 2002 Completed [facility] 00:00:00 [facility] HIB 4 Dose Schedule 2002 Completed [facility] of 00:00:00 [facility] Hep B, Adol or Pedi 2002 Completed [facility] 00:00:00 [facility] Hep B, Adol or Pedi 2002 Completed [facility] D[facility] 00:00:00 [facility] DTAP 2002 Completed [facility] 00:00:00 [facility] HIB 4 Dose Schedule 2002 Completed [facility] 00:00:00 [facility] Hep B, Adol or Pedi 2002 Completed [facility] Dosage 00:00:00 [facility] DTAP 2002 Completed [facility] 00:00:00 [facility] HIB 4 Dose Schedule 2002 Completed [facility] 00:00:00 [facility] Hep B, Adol or Pedi 2002 Completed [facility] Dosage 00:00:00 [facility] DTAP 2002 Completed [facility] 00:00:00 [facility] HIB 4 Dose Schedule 2002 Completed [facility] 00:00:00 [facility] Hep B, Adol or Pedi 2002 Completed [facility] Dos[facility] 00:00:00 [facility] DTAP 2002 Completed [facility] 00:00:00 [facility] HIB 4 Dose Schedule 2002 Completed [facility] 00:00:00 [facility] Hep B, Adol or Pedi 2002 Completed [facility] Dos[facility] 00:00:00 [facility] DTAP 2002 Completed [facility] 00:00:00 [facility] HIB 4 Dose Schedule 2002 Completed [facility] 00:00:00 [facility] Hep B, Adol or Pedi 2002 Completed [facility] Dos[facility] 00:00:00 [facility] DTAP 2002 Completed [facility] 00:00:00 [facility] HIB 4 Dose Schedule 2002 Completed [facility] 00:00:00 [facility] Hep B, Adol or Pedi 2002 Completed [facility] Dos[facility] 00:00:00 [facility] DTAP 2002 Completed [facility] 00:00:00 [facility] DTAP 2002 Completed [facility] 00:00:00 [facility] HIB 4 Dose Schedule 2002 Completed [facility] 00:00:00 [facility] Hep B, Adol or Pedi 2002 Completed [facility] Dosage 00:00:00 [facility] HIB 4 Dose Schedule 2002 Completed [facility] 00:00:00 [facility] DTAP 2002 Completed [facility] 00:00:00 [facility] HIB 4 Dose Schedule 2002 Completed [facility] 00:00:00 [facility] Hep B, Adol or Pedi 2002 Completed [facility] Dosage 00:00:00 [facility] DTAP 2002 Completed [facility] 00:00:00 [facility] HIB 4 Dose Schedule 2002 Completed [facility] 00:00:00 [facility] Hep B, Adol or Pedi 2002 Completed [facility] Dos[facility] 00:00:00 [facility] Hep B, Adol or Pedi 2002 Completed [facility] Dos[facility] 00:00:00 [facility] DTAP 2002 Completed [facility] 00:00:00 [facility] HIB 4 Dose Schedule 2002 Completed [facility] 00:00:00 [facility] Hep B, Adol or Pedi 2002 Completed [facility] Dosage 00:00:00 [facility] DTAP 2002 Completed [facility] 00:00:00 [facility] HIB 4 Dose Schedule 2002 Completed [facility] 00:00:00 [facility] Hep B, Adol or Pedi 2002 Completed [facility] Dos[facility] 00:00:00 [facility] DTAP 2002 Completed [facility] 00:00:00 [facility] HIB 4 Dose Schedule 2002 Completed [facility] 00:00:00 [facility] Hep B, Adol or Pedi 2002 Completed [facility] Dos[facility] 00:00:00 [facility] DTAP 2002 Completed [facility] 00:00:00 [facility] HIB 4 Dose Schedule 2002 Completed [facility] 00:00:00 [facility] Hep B, Adol or Pedi 2002 Completed [facility] Dosage 00:00:00 [facility] DTAP 2002 Completed [facility] 00:00:00 [facility] HIB 4 Dose Schedule 2002 Completed [facility] 00:00:00 [facility] Hep B, Adol or Pedi 2002 Completed [facility] Dosage 00:00:00 [facility] DTAP 2002 Completed [facility] 00:00:00 [facility] HIB 4 Dose Schedule 2002 Completed [facility] 00:00:00 [facility] Hep B, Adol or Pedi 2002 Completed [facility] Dos[facility] 00:00:00 [facility] DTAP 2002 Completed [facility] 00:00:00 [facility] DTAP 2002 Completed [facility] 00:00:00 [facility] HIB 4 Dose Schedule 2002 [...] 2002 Completed [facility] D[facility] 00:00:00 [facility] DTAP 2002 Completed [facility] 00:00:00 [facility] HIB 4 Dose Schedule 2002 Completed [facility] 00:00:00 [facility] Hep B, Adol or Pedi 2002 Completed [facility] Dosage 00:00:00 [facility] Hep B, Adol or Pedi 2002 Completed [facility] Dos[facility] 00:00:00 [facility] DTAP 2002 Completed [facility] 00:00:00 [facility] HIB 4 Dose Schedule 2002 Completed [facility] 00:00:00 [facility] Hep B, Adol or Pedi 2002 Completed [facility] Dosage 00:00:00 [facility] DTAP 2002 Completed [facility] 00:00:00 [facility] HIB 4 Dose Schedule 2002 Completed [facility] 00:00:00 [facility] Hep B, Adol or Pedi 2002 Completed [facility] Dosage 00:00:00 [facility] DTAP 2002 Completed [facility] 00:00:00 [facility] HIB 4 Dose Schedule 2002 Completed [facility] 00:00:00 [facility] Hep B, Adol or Pedi 2002 Completed [facility] Dosage 00:00:00 [facility] DTAP 2002 Completed [facility] 00:00:00 [facility] HIB 4 Dose Schedule 2002 Completed [facility] 00:00:00 [facility] Hep B, Adol or Pedi 2002 Completed [facility] Dosage 00:00:00 [facility] DTAP 2002 Completed [facility] 00:00:00 [facility] HIB 4 Dose Schedule 2002 Completed [facility] 00:00:00 [facility] Hep B, Adol or Pedi 2002 Completed [facility] Dos[facility] 00[facility]00:00 [facility] DTAP 2002 Completed [facility] 00[facility]00:00 [facility] HIB 4 Dose Schedule 2002 Completed [facility] 00:00:00 [facility] Hep B, Adol or Pedi 2002 Completed [facility] Dosage 00:00:00 [facility] DTAP 2002 Completed [facility] 00:00:00 [facility] HIB 4 Dose Schedule 2002 Completed [facility] 00:00:00 [facility] Hep B, Adol or Pedi 2002 Completed [facility] Dos[facility] 00:00:00 [facility] DTAP 2002 Completed [facility] 00:00:00 [facility] HIB 4 Dose Schedule 2002 Completed [facility] 00:00:00 [facility] Hep B, Adol or Pedi 2002 Completed [facility] Dos[facility] 00:00:00 [facility] DTAP 2002 Completed [facility] 00[facility]00:00 [facility] DTAP 2002 Completed [facility] 00:00:00 [facility] HIB 4 Dose Schedule 2002 Completed [facility] 00:00:00 [facility] Hep B, Adol or Pedi 2002 Completed [facility] Dosage 00:00:00 [facility] DTAP 2002 Completed [facility] 00:00:00 [facility] HIB 4 Dose Schedule 2002 Completed [facility] 00:00:00 [facility] HIB 4 Dose Schedule 2002 Completed [facility] 00:00:00 [facility] Hep B, Adol or Pedi 2002 Completed [facility] Dos[facility] 00:00:00 [facility] DTAP 2002 Completed [facility] 00:00:00 [facility] HIB 4 Dose Schedule 2002 Completed [facility] 00:00:00 [facility] Polio (IPV/OPV) 2002 Completed [facility] 00:00:00 [facility] DTAP 2002 Completed [facility] 00:00:00 [facility] HIB 4 Dose Schedule 2002 Completed [facility] 00:00:00 [facility] Polio (IPV/OPV) 2002 Completed [facility] 00:00:00 [facility] Polio (IPV/OPV) 2002 Completed [facility] 00:00:00 [facility] DTAP 2002 Completed [facility] 00:00:00 [facility] HIB 4 Dose Schedule 2002 Completed [facility] 00:00:00 [facility] Polio (IPV/OPV) 2002 Completed [facility] 00:00:00 [facility] DTAP 2002 Completed [facility] 00:00:00 [facility] HIB 4 Dose Schedule 2002 Completed [facility] 00:00:00 [facility] Polio (IPV/OPV) 2002 Completed [facility] 00:00:00 [facility] DTAP 2002 Completed [facility] 00:00:00 [facility] HIB 4 Dose Schedule 2002 Completed [facility] 00:00:00 [facility] Polio (IPV/OPV) 2002 Completed [facility] 00:00:00 [facility] DTAP 2002 Completed [facility] 00:00:00 [facility] HIB 4 Dose Schedule 2002 Completed [facility] 00:00:00 [facility] Polio (IPV/OPV) 2002 Completed [facility] 00:00:00 [facility] DTAP 2002 Completed [facility] 00:00:00 [facility] HIB 4 Dose Schedule 2002 Completed [facility] 00:00:00 [facility] Polio (IPV/OPV) 2002 Completed [facility] 00:00:00 [facility] DTAP 2002 Completed [facility] 00:00:00 [facility] HIB 4 Dose Schedule 2002 Completed [facility] 00:00:00 [facility] DTAP 2002 Completed [facility] 00:00:00 [facility] Polio (IPV/OPV) 2002 Completed [facility] 00:00:00 [facility] DTAP 2002 Completed [facility] 00:00:00 [facility] HIB 4 Dose Schedule 2002 Completed [facility] 00:00:00 [facility] HIB 4 Dose Schedule 2002 Completed [facility] 00:00:00 [facility] Polio (IPV/OPV) 2002 Completed [facility] 00:00:00 [facility] DTAP 2002 Completed [facility] 00:00:00 [facility] HIB 4 Dose Schedule 2002 Completed [facility] 00:00:00 [facility] Polio (IPV/OPV) 2002 Completed [facility] 00:00:00 [facility] DTAP 2002 Completed [facility] 00:00:00 [facility] HIB 4 Dose Schedule 2002 Completed [facility] 00:00:00 [facility] Polio (IPV/OPV) 2002 Completed [facility] 00:00:00 [facility] DTAP 2002 Completed [facility] 00:00:00 [facility] [place] HIB 4 Dose Schedule 2002 Completed [facility] 00:00:00 [facility] Polio (IPV/OPV) 2002 Completed [facility] 00:00:00 [facility] Polio (IPV/OPV) 2002 Completed [facility] 00:00:00 [facility] DTAP 2002 Completed [facility] 00:00:00 [facility] HIB 4 Dose Schedule 2002 Completed [facility] 00:00:00 [facility] Polio (IPV/OPV) 2002 Completed [facility] 00:00:00 [facility] DTAP 2002 Completed [facility] 00:00:00 [facility] HIB 4 Dose Schedule 2002 Completed [facility] 00:00:00 [facility] Polio (IPV/OPV) 2002 Completed [facility] 00:00:00 [facility] DTAP 2002 Completed [facility] 00:00:00 [facility] HIB 4 Dose Schedule 2002 Completed [facility] 00:00:00 [facility] Polio (IPV/OPV) 2002 Completed [facility] 00:00:00 [facility] DTAP 2002 Completed [facility] 00:00:00 [facility] HIB 4 Dose Schedule 2002 Completed [facility] 00:00:00 [facility] Polio (IPV/OPV) 2002 Completed [facility] 00:00:00 [facility] DTAP 2002 Completed [facility] 00:00:00 [facility] [place] HIB 4 Dose Schedule 2002 Completed [facility] 00:00:00 [facility] Polio (IPV/OPV) 2002 Completed [facility] 00:00:00 [facility] DTAP 2002 Completed [facility] 00:00:00 [facility] HIB 4 Dose Schedule 2002 Completed [facility] 00:00:00 [facility] Polio (IPV/OPV) 2002 Completed [facility] 00:00:00 [facility] DTAP 2002 Completed [facility] 00[facility]00:00 [facility] [place] DTAP 2002 Completed [facility] 00:00:00 [facility] HIB 4 Dose Schedule 2002 Completed [facility] 00:00:00 [facility] Polio (IPV/OPV) 2002 Completed [facility] 00:00:00 [facility] HIB 4 Dose Schedule 2002 Completed [facility] 00:00:00 [facility] DTAP 2002 Completed [facility] 00:00:00 [facility] [place] HIB 4 Dose Schedule 2002 Completed [facility] 00:00:00 [facility] Polio (IPV/OPV) 2002 Completed [facility] 00:00:00 [facility] DTAP 2002 Completed [facility] 00:00:00 [facility] [place] HIB 4 Dose Schedule 2002 Completed [facility] 00:00:00 [facility] Polio (IPV/OPV) 2002 Completed [facility] 00:00:00 [facility] DTAP 2002 Completed [facility] 00:00:00 [facility] [place] HIB 4 Dose Schedule 2002 Completed [facility] 00:00:00 [facility] Polio (IPV/OPV) 2002 Completed [facility] 00:00:00 [facility] Polio (IPV/OPV) 2002 Completed [facility] 00:00:00 [facility] DTAP 2002 Completed [facility] 00:00:00 [facility] [place] HIB 4 Dose Schedule 2002 Completed [facility] 00:00:00 [facility] Polio (IPV/OPV) 2002 Completed [facility] 00:00:00 [facility] DTAP 2002 Completed [facility] 00:00:00 [facility] HIB 4 Dose Schedule 2002 Completed [facility] 00:00:00 [facility] Polio (IPV/OPV) 2002 Completed [facility] 00:00:00 [facility] DTAP 2002 Completed [facility] 00:00:00 [facility] HIB 4 Dose Schedule 2002 Completed [facility] 00:00:00 [facility] Polio (IPV/OPV) 2002 Completed [facility] 00:00:00 [facility] DTAP 2002 Completed [facility] 00:00:00 [facility] HIB 4 Dose Schedule 2002 Completed [facility] 00:00:00 [facility] Polio (IPV/OPV) 2002 Completed [facility] 00:00:00 [facility] DTAP 2002 Completed [facility] 00:00:00 [facility] [place] HIB 4 Dose Schedule 2002 Completed [facility] 00:00:00 [facility] DTAP 2002 Completed [facility] 00:00:00 [facility] Polio (IPV/OPV) 2002 Completed [facility] 00:00:00 [facility] DTAP 2002 Completed [facility] 00:00:00 [facility] HIB 4 Dose Schedule 2002 Completed [facility] 00:00:00 [facility] HIB 4 Dose Schedule 2002 Completed [facility] 00:00:00 [facility] Polio (IPV/OPV) 2002 Completed [facility] 00:00:00 [facility] DTAP 2002 Completed [facility] 00:00:00 [facility] HIB 4 Dose Schedule 2002 Completed [facility] 00:00:00 [facility] Polio (IPV/OPV) 2002 Completed [facility] 00:00:00 [facility] DTAP 2002 Completed [facility] 00:00:00 [facility] HIB 4 Dose Schedule 2002 Completed [facility] 00:00:00 [facility] Polio (IPV/OPV) 2002 Completed [facility] 00:00:00 [facility] Polio (IPV/OPV) 2002 Completed [facility] 00:00:00 [facility] DTAP 2002 Completed [facility] 00:00:00 [facility] HIB 4 Dose Schedule 2002 Completed [facility] 00:00:00 [facility] Polio (IPV/OPV) 2002 Completed [facility] 00:00:00 [facility] DTAP 2002 Completed [facility] 00:00:00 [facility] [place] HIB 4 Dose Schedule 2002 Completed [facility] 00:00:00 [facility] Polio (IPV/OPV) 2002 Completed [facility] 00:00:00 [facility] DTAP 2002 Completed [facility] 00:00:00 [facility] HIB 4 Dose Schedule 2002 Completed [facility] 00:00:00 [facility] Polio (IPV/OPV) 2002 Completed [facility] 00:00:00 [facility] DTAP 2002 Completed [facility] 00:00:00 [facility] [place] HIB 4 Dose Schedule 2002 Completed [facility] 00:00:00 [facility] Polio (IPV/OPV) 2002 Completed [facility] 00:00:00 [facility] DTAP 2002 Completed [facility] 00:00:00 [facility] HIB 4 Dose Schedule 2002 Completed [facility] 00:00:00 [facility] Polio (IPV/OPV) 2002 Completed [facility] 00:00:00 [facility] DTAP 2002 Completed [facility] 00:00:00 [facility] HIB 4 Dose Schedule 2002 Completed [facility] 00:00:00 [facility] DTAP 2002 Completed [facility] 00:00:00 [facility] Polio (IPV/OPV) 2002 Completed [facility] 00:00:00 [facility] DTAP 2002 Completed [facility] 00:00:00 [facility] HIB 4 Dose Schedule 2002 Completed [facility] 00:00:00 [facility] HIB 4 Dose Schedule 2002 Completed [facility] 00:00:00 [facility] Polio (IPV/OPV) 2002 Completed [facility] 00:00:00 [facility] DTAP 2002 Completed [facility] 00:00:00 [facility] [place] HIB 4 Dose Schedule 2002 Completed [facility] 00:00:00 [facility] Polio (IPV/OPV) 2002 Completed [facility] 00:00:00 [facility] DTAP 2002 Completed [facility] 00:00:00 [facility] [place] HIB 4 Dose Schedule 2002 Completed [facility] 00:00:00 [facility] Polio (IPV/OPV) 2002 Completed [facility] 00:00:00 [facility] DTAP 2002 Completed [facility] 00:00:00 [facility] [place] HIB 4 Dose Schedule 2002 Completed [facility] 00:00:00 [facility] Polio (IPV/OPV) 2002 Completed [facility] 00:00:00 [facility] Polio (IPV/OPV) 2002 Completed [facility] 00:00:00 [facility] DTAP 2002 Completed [facility] 00:00:00 [facility] HIB 4 Dose Schedule 2002 Completed [facility] 00:00:00 [facility] Polio (IPV/OPV) 2002 Completed [facility] 00:00:00 [facility] DTAP 2002 Completed [facility] 00:00:00 [facility] HIB 4 Dose Schedule 2002 Completed [facility] 00:00:00 [facility] Polio (IPV/OPV) 2002 Completed [facility] 00:00:00 [facility] DTAP 2002 Completed [facility] 00:00:00 [facility] DTAP 2002 Completed [facility] 00:00:00 [facility] HIB 4 Dose Schedule 2002 Completed [facility] 00:00:00 [facility] Polio (IPV/OPV) 2002 Completed [facility] 00:00:00 [facility] HIB 4 Dose Schedule 2002 Completed [facility] 00:00:00 [facility] DTAP 2002 Completed [facility] 00[facility]00:00 [facility] HIB 4 Dose Schedule 2002 Completed [facility] 00:00:00 [facility] Polio (IPV/OPV) 2002 Completed [facility] 00:00:00 [facility] DTAP 2002 Completed [facility] 00:00:00 [facility] HIB 4 Dose Schedule 2002 Completed [facility] 00:00:00 [facility] Polio (IPV/OPV) 2002 Completed [facility] 00:00:00 [facility] DTAP 2002 Completed [facility] 00:00:00 [facility] HIB 4 Dose Schedule 2002 Completed [facility] 00:00:00 [facility] Polio (IPV/OPV) 2002 Completed [facility] 00:00:00 [facility] Polio (IPV/OPV) 2002 Completed [facility] 00:00:00 [facility] DTAP 2002 Completed [facility] 00:00:00 [facility] HIB 4 Dose Schedule 2002 Completed [facility] 00:00:00 [facility] Polio (IPV/OPV) 2002 Completed [facility] 00:00:00 [facility] DTAP 2002 Completed [facility] 00:00:00 [facility] HIB 4 Dose Schedule 2002 Completed [facility] 00:00:00 [facility] Polio (IPV/OPV) 2002 Completed [facility] 00:00:00 [facility] DTAP 2002 Completed [facility] 00:00:00 [facility] [place] HIB 4 Dose Schedule 2002 Completed [facility] 00:00:00 [facility] Polio (IPV/OPV) 2002 Completed [facility] 00:00:00 [facility] DTAP 2002 Completed [facility] 00:00:00 [facility] HIB 4 Dose Schedule 2002 Completed [facility] 00:00:00 [facility] DTAP 2002 Completed [facility] 00:00:00 [facility] Polio (IPV/OPV) 2002 Completed [facility] 00:00:00 [facility] DTAP 2002 Completed [facility] 00:00:00 [facility] HIB 4 Dose Schedule 2002 Completed [facility] 00:00:00 [facility] HIB 4 Dose Schedule 2002 Completed [facility] 00:00:00 [facility] Polio (IPV/OPV) 2002 Completed [facility] 00:00:00 [facility] DTAP 2002 Completed [facility] 00[facility]00:00 [facility] HIB 4 Dose Schedule 2002 Completed [facility] 00:00:00 [facility] Polio (IPV/OPV) 2002 Completed [facility] 00:00:00 [facility] DTAP 2002 Completed [facility] 00[facility]00:00 [facility] HIB 4 Dose Schedule 2002 Completed [facility] 00:00:00 [facility] Polio (IPV/OPV) 2002 Completed [facility] 00:00:00 [facility] DTAP 2002 Completed [facility] 00[facility]00:00 [facility] Polio (IPV/OPV) 2002 Completed [facility] 00:00:00 [facility] HIB 4 Dose Schedule 2002 Completed [facility] 00:00:00 [facility] Polio (IPV/OPV) 2002 Completed [facility] 00:00:00 [facility] DTAP 2002 Completed [facility] 00:00:00 [facility] [place] HIB 4 Dose Schedule 2002 Completed [facility] 00:00:00 [facility] Polio (IPV/OPV) 2002 Completed [facility] 00:00:00 [facility] DTAP 2002 Completed [facility] 00:00:00 [facility] HIB 4 Dose Schedule 2002 Completed [facility] 00:00:00 [facility] Polio (IPV/OPV) 2002 Completed [facility] 00:00:00 [facility] DTAP 2002 Completed [facility] 00:00:00 [facility] [place] HIB 4 Dose Schedule 2002 Completed [facility] 00:00:00 [facility] Polio (IPV/OPV) 2002 Completed [facility] 00:00:00 [facility] DTAP 2002 Completed [facility] 00:00:00 [facility] HIB 4 Dose Schedule 2002 Completed [facility] 00:00:00 [facility] [place] Polio (IPV/OPV) 2002 Completed [facility] 00:00:00 [facility] [place] DTAP 2002 Completed [facility] 00:00:00 [facility] [place] DTAP 2002 Completed [facility] 00:00:00 [facility] [place] HIB 4 Dose Schedule 2002 Completed [facility] 00:00:00 [facility] Polio (IPV/OPV) 2002 Completed [facility] 00:00:00 [facility] [place] HIB 4 Dose Schedule 2002 Completed [facility] 00:00:00 [facility] DTAP 2002 Completed [facility] 00:00:00 [facility] [place] HIB 4 Dose Schedule 2002 Completed [facility] 00:00:00 [facility] Polio (IPV/OPV) 2002 Completed [facility] 00:[facility]00 [facility] [facility] DTAP 2002 Completed [facility] 00:00:00 [facility] HIB 4 Dose Schedule 2002 Completed [facility] 00:00:00 [facility] Polio (IPV/OPV) 2002 Completed [facility] 00:00:00 [facility] DTAP 2002 Completed [facility] 00:00:00 [facility] HIB 4 Dose Schedule 2002 Completed [facility] 00:00:00 [facility] Polio (IPV/OPV) 2002 Completed [facility] 00:00:00 [facility] Polio (IPV/OPV) 2002 Completed [facility] 00:00:00 [facility] DTAP 2002 Completed [facility] 00:00:00 [facility] HIB 4 Dose Schedule 2002 Completed [facility] 00:00:00 [facility] Polio (IPV/OPV) 2002 Completed [facility] 00:00:00 [facility] DTAP 2002 Completed [facility] 00:00:00 [facility] HIB 4 Dose Schedule 2002 Completed [facility] 00:00:00 [facility] Polio (IPV/OPV) 2002 Completed [facility] 00:00:00 [facility] DTAP 2002 Completed [facility] 00:00:00 [facility] HIB 4 Dose Schedule 2002 Completed [facility] 00:00:00 [facility] Polio (IPV/OPV) 2002 Completed [facility] 00:00:00 [facility] DTAP 2002 Completed [facility] 00:00:00 [facility] HIB 4 Dose Schedule 2002 Completed [facility] 00:00:00 [facility] Polio (IPV/OPV) 2002 Completed [facility] 00:00:00 [facility] DTAP 2002 Completed [facility] 00:00:00 [facility] HIB 4 Dose Schedule 2002 Completed [facility] 00:00:00 [facility] DTAP 2002 Completed [facility] 00:00:00 [facility] Polio (IPV/OPV) 2002 Completed [facility] 00:00:00 [facility] DTAP 2002 Completed [facility] 00:00:00 [facility] HIB 4 Dose Schedule 2002 Completed [facility] 00:00:00 [facility] Polio (IPV/OPV) 2002 Completed [facility] 00:00:00 [facility] HIB 4 Dose Schedule 2002 Completed [facility] 00:00:00 [facility] DTAP 2002 Completed [facility] 00:00:00 [facility] HIB 4 Dose Schedule 2002 Completed [facility] 00:00:00 [facility] Polio (IPV/OPV) 2002 Completed [facility] 00:00:00 [facility] DTAP 2002 Completed [facility] 00:00:00 [facility] HIB 4 Dose Schedule 2002 Completed [facility] 00:00:00 [facility] Polio (IPV/OPV) 2002 Completed [facility] 00:00:00 [facility] DTAP 2002 Completed [facility] 00:00:00 [facility] HIB 4 Dose Schedule 2002 Completed [facility] 00:00:00 [facility] Polio (IPV/OPV) 2002 Completed [facility] 00:00:00 [facility] Polio (IPV/OPV) 2002 Completed [facility] 00:00:00 [facility] DTAP 2002 Completed [facility] 00:00:00 [facility] HIB 4 Dose Schedule 2002 Completed [facility] 00:00:00 [facility] Polio (IPV/OPV) 2002 Completed [facility] 00:00:00 [facility] DTAP 2002 Completed [facility] 00:00:00 [facility] HIB 4 Dose Schedule 2002 Completed [facility] 00:00:00 [facility] Polio (IPV/OPV) 2002 Completed [facility] 00:00:00 [facility] DTAP 2002 Completed [facility] 00:00:00 [facility] HIB 4 Dose Schedule 2002 Completed [facility] 00:00:00 [facility] Polio (IPV/OPV) 2002 Completed [facility] 00:00:00 [facility] DTAP 2002 Completed [facility] 00:00:00 [facility] HIB 4 Dose Schedule 2002 Completed [facility] 00:00:00 [facility] Polio (IPV/OPV) 2002 Completed [facility] 00:00:00 [facility] DTAP 2002 Completed [facility] 00:00:00 [facility] HIB 4 Dose Schedule 2002 Completed [facility] 00:00:00 [facility] Polio (IPV/OPV) 2002 Completed [facility] 00:00:00 [facility] DTAP 2002 Completed [facility] 00:00:00 [facility] HIB 4 Dose Schedule 2002 Completed [facility] 00:00:00 [facility] Polio (IPV/OPV) 2002 Completed [facility] 00:00:00 [facility] DTAP 2002 Completed [facility] 00:00:00 [facility] HIB 4 Dose Schedule 2002 Completed [facility] 00:00:00 [facility] Polio (IPV/OPV) 2002 Completed [facility] 00:00:00 [facility] DTAP 2002 Completed [facility] 00:00:00 [facility] DTAP 2002 Completed [facility] 00:00:00 [facility] HIB 4 Dose Schedule 2002 Completed [facility] 00:00:00 [facility] Polio (IPV/OPV) 2002 Completed [facility] 00:00:00 [facility] HIB 4 Dose Schedule 2002 Completed [facility] 00:00:00 [facility] DTAP 2002 Completed [facility] 00:00:00 [facility] HIB 4 Dose Schedule 2002 Completed [facility] 00:00:00 [facility] Polio (IPV/OPV) 2002 Completed [facility] 00:00:00 [facility] DTAP 2002 Completed [facility] 00:00:00 [facility] Hep B, Adol or Pedi 2002 Completed [facility] Dosage 00:00:00 [facility] Hep B, Adol or Pedi 2002 Completed [facility] Dosage 00:00:00 [facility] Polio (IPV/OPV) 2002 Completed [facility] 00:00:00 [facility] DTAP 2002 Completed [facility] 00:00:00 [facility] HIB 4 Dose Schedule 2002 Completed [facility] 00:00:00 [facility] Hep B, Adol or Pedi 2002 Completed [facility] Dosage 00:00:00 [facility] Polio (IPV/OPV) 2002 Completed [facility] 00:00:00 [facility] Polio (IPV/OPV) 2002 Completed [facility] 00:00:00 [facility] DTAP 2002 Completed [facility] 00:00:00 [facility] HIB 4 Dose Schedule 2002 Completed [facility] 00:00:00 [facility] Hep B, Adol or Pedi 2002 Completed [facility] Dosage 00:00:00 [facility] Polio (IPV/OPV) 2002 Completed [facility] 00:00:00 [facility] DTAP 2002 Completed [facility] 00:00:00 [facility] HIB 4 Dose Schedule 2002 Completed [facility] 00:00:00 [facility] Hep B, Adol or Pedi 2002 Completed [facility] Dosage 00:00:00 [facility] Polio (IPV/OPV) 2002 Completed [facility] 00:00:00 [facility] DTAP 2002 Completed [facility] 00:00:00 [facility] HIB 4 Dose Schedule 2002 Completed [facility] 00:00:00 [facility] Hep B, Adol or Pedi 2002 Completed [facility] Dosage 00:00:00 [facility] Polio (IPV/OPV) 2002 Completed [facility] 00:00:00 [facility] DTAP 2002 Completed [facility] 00:00:00 [facility] HIB 4 Dose Schedule 2002 Completed [facility] 00:00:00 [facility] Hep B, Adol or Pedi 2002 Completed [facility] Dosage 00:00:00 [facility] Polio (IPV/OPV) 2002 Completed [facility] 00:00:00 [facility] DTAP 2002 Completed [facility] 00:00:00 [facility] HIB 4 Dose Schedule 2002 Completed [facility] 00:00:00 [facility] Hep B, Adol or Pedi 2002 Completed [facility] Dosage 00:00:00 [facility] Polio (IPV/OPV) 2002 Completed [facility] 00:00:00 [facility] DTAP 2002 Completed [facility] 00[facility]00:00 [facility] DTAP 2002 Completed [facility] 00:00:00 [facility] HIB 4 Dose Schedule 2002 Completed [facility] 00:00:00 [facility] Hep B, Adol or Pedi 2002 Completed [facility] Dosage 00:00:00 [facility] Polio (IPV/OPV) 2002 Completed [facility] 00:00:00 [facility] DTAP 2002 Completed [facility] 00:00:00 [facility] HIB 4 Dose Schedule 2002 Completed [facility] 00:00:00 [facility] HIB 4 Dose Schedule 2002 Completed [facility] 00:00:00 [facility] Hep B, Adol or Pedi 2002 Completed [facility] Dosage 00:00:00 [facility] Polio (IPV/OPV) 2002 Completed [facility] 00:00:00 [facility] DTAP 2002 Completed [facility] 00:00:00 [facility] HIB 4 Dose Schedule 2002 Completed [facility] 00:00:00 [facility] Hep B, Adol or Pedi 2002 Completed [facility] Dosage 00:00:00 [facility] Polio (IPV/OPV) 2002 Completed [facility] 00:00:00 [facility] Hep B, Adol or Pedi 2002 Completed [facility] Dosage 00:00:00 [facility] DTAP 2002 Completed [facility] 00:00:00 [facility] HIB 4 Dose Schedule 2002 Completed [facility] 00:00:00 [facility] Hep B, Adol or Pedi 2002 Completed [facility] Dosage 00:00:00 [facility] Polio (IPV/OPV) 2002 Completed [facility] 00:00:00 [facility] Polio (IPV/OPV) 2002 Completed [facility] 00:00:00 [facility] DTAP 2002 Completed [facility] 00:00:00 [facility] HIB 4 Dose Schedule 2002 Completed [facility] 00:00:00 [facility] Hep B, Adol or Pedi 2002 Completed [facility] Dosage 00:00:00 [facility] Polio (IPV/OPV) 2002 Completed [facility] 00:00:00 [facility] DTAP 2002 Completed [facility] 00:00:00 [facility] HIB 4 Dose Schedule 2002 Completed [facility] 00:00:00 [facility] Hep B, Adol or Pedi 2002 Completed [facility] Dosage 00:00:00 [facility] Polio (IPV/OPV) 2002 Completed [facility] 00:00:00 [facility] DTAP 2002 Completed [facility] 00:00:00 [facility] HIB 4 Dose Schedule 2002 Completed [facility] 00:00:00 [facility] Hep B, Adol or Pedi 2002 Completed [facility] Dosage 00:00:00 [facility] Polio (IPV/OPV) 2002 Completed [facility] 00:00:00 [facility] DTAP 2002 Completed [facility] 00:00:00 [facility] HIB 4 Dose Schedule 2002 Completed [facility] 00:00:00 [facility] Hep B, Adol or Pedi 2002 Completed [facility] Dosage 00:00:00 [facility] Polio (IPV/OPV) 2002 Completed [facility] 00:00:00 [facility] DTAP 2002 Completed [facility] 00:00:00 [facility] HIB 4 Dose Schedule 2002 Completed [facility] 00:00:00 [facility] Hep B, Adol or Pedi 2002 Completed [facility] Dosage 00:00:00 [facility] Polio (IPV/OPV) 2002 Completed [facility] 00:00:00 [facility] DTAP 2002 Completed [facility] 00:00:00 [facility] HIB 4 Dose Schedule 2002 Completed [facility] 00:00:00 [facility] Hep B, Adol or Pedi 2002 Completed [facility] Dosage 00:00:00 [facility] Polio (IPV/OPV) 2002 Completed [facility] 00:00:00 [facility] DTAP 2002 Completed [facility] 00:00:00 [facility] HIB 4 Dose Schedule 2002 Completed [facility] 00:00:00 [facility] Hep B, Adol or Pedi 2002 Completed [facility] Dosage 00:00:00 [facility] Polio (IPV/OPV) 2002 Completed [facility] 00:00:00 [facility] DTAP 2002 Completed [facility] 00:00:00 [facility] DTAP 2002 Completed [facility] 00:00:00 [facility] HIB 4 Dose Schedule 2002 Completed [facility] 00:00:00 [facility] Hep B, Adol or Pedi 2002 Completed [facility] Dosage 00:00:00 [facility] Polio (IPV/OPV) 2002 Completed [facility] 00:00:00 [facility] HIB 4 Dose Schedule 2002 Completed [facility] 00:00:00 [facility] DTAP 2002 Completed [facility] 00:00:00 [facility] HIB 4 Dose Schedule 2002 Completed [facility] 00:00:00 [facility] Hep B, Adol or Pedi 2002 Completed [facility] Dosage 00:00:00 [facility] Polio (IPV/OPV) 2002 Completed [facility] 00:00:00 [facility] DTAP 2002 Completed [facility] 00:00:00 [facility] HIB 4 Dose Schedule 2002 Completed [facility] 00:00:00 [facility] Hep B, Adol or Pedi 2002 Completed [facility] Dosage 00:00:00 [facility] Polio (IPV/OPV) 2002 Completed [facility] 00:00:00 [facility] Hep B, Adol or Pedi 2002 Completed [facility] Dosage 00:00:00 [facility] DTAP 2002 Completed [facility] 00:00:00 [facility] HIB 4 Dose Schedule 2002 Completed [facility] 00:00:00 [facility] Hep B, Adol or Pedi 2002 Completed [facility] Dosage 00:00:00 [facility] Polio (IPV/OPV) 2002 Completed [facility] 00:00:00 [facility] Polio (IPV/OPV) 2002 Completed [facility] 00:00:00 [facility] DTAP 2002 Completed [facility] 00:00:00 [facility] HIB 4 Dose Schedule 2002 Completed [facility] 00:00:00 [facility] Hep B, Adol or Pedi 2002 Completed [facility] Dosage 00:00:00 [facility] Polio (IPV/OPV) 2002 Completed [facility] 00:00:00 [facility] DTAP 2002 Completed [facility] 00:00:00 [facility] HIB 4 Dose Schedule 2002 Completed [facility] 00:00:00 [facility] Hep B, Adol or Pedi 2002 Completed [facility] Dosage 00:00:00 [facility] Polio (IPV/OPV) 2002 Completed [facility] 00:00:00 [facility] DTAP 2002 Completed [facility] 00:00:00 [facility] HIB 4 Dose Schedule 2002 Completed [facility] 00:00:00 [facility] Hep B, Adol or Pedi 2002 Completed [facility] Dosage 00:00:00 [facility] Polio (IPV/OPV) 2002 Completed [facility] 00:00:00 [facility] DTAP 2002 Completed [facility] 00:00:00 [facility] HIB 4 Dose Schedule 2002 Completed [facility] 00:00:00 [facility] Hep B, Adol or Pedi 2002 Completed [facility] Dosage 00:00:00 [facility] Polio (IPV/OPV) 2002 Completed [facility] 00:00:00 [facility] DTAP 2002 Completed [facility] 00:00:00 [facility] HIB 4 Dose Schedule 2002 Completed [facility] 00:00:00 [facility] DTAP 2002 Completed [facility] 00:00:00 [facility] Hep B, Adol or Pedi 2002 Completed [facility] Dosage 00:00:00 [facility] Polio (IPV/OPV) 2002 Completed [facility] 00:00:00 [facility] HIB 4 Dose Schedule 2002 Completed [facility] 00:00:00 [facility] DTAP 2002 Completed [facility] 00:00:00 [facility] HIB 4 Dose Schedule 2002 Completed [facility] 00:00:00 [facility] Hep B, Adol or Pedi 2002 Completed [facility] Dosage 00:00:00 [facility] Polio (IPV/OPV) 2002 Completed [facility] 00:00:00 [facility] DTAP 2002 Completed [facility] 00[facility]00:00 [facility] HIB 4 Dose Schedule 2002 Completed [facility] 00[facility]00:00 [facility] Hep B, Adol or Pedi 2002 Completed [facility] Dosage 00:00:00 [facility] Polio (IPV/OPV) 2002 Completed [facility] 00:00:00 [facility] Hep B, Adol or Pedi 2002 Completed [facility] Dosage 00:00:00 [facility] DTAP 2002 Completed [facility] 00:00:00 [facility] HIB 4 Dose Schedule 2002 Completed [facility] 00:00:00 [facility] Hep B, Adol or Pedi 2002 Completed [facility] Dosage 00:00:00 [facility] Polio (IPV/OPV) 2002 Completed [facility] 00:00:00 [facility] Polio (IPV/OPV) 2002 Completed [facility] 00:00:00 [facility] DTAP 2002 Completed [facility] 00:00:00 [facility] HIB 4 Dose Schedule 2002 Completed [facility] 00:00:00 [facility] Hep B, Adol or Pedi 2002 Completed [facility] Dosage 00:00:00 [facility] Polio (IPV/OPV) 2002 Completed [facility] 00:00:00 [facility] DTAP 2002 Completed [facility] 00:00:00 [facility] HIB 4 Dose Schedule 2002 Completed [facility] 00:00:00 [facility] Hep B, Adol or Pedi 2002 Completed [facility] Dosage 00:00:00 [facility] Polio (IPV/OPV) 2002 Completed [facility] 00:00:00 [facility] DTAP 2002 Completed [facility] 00:00:00 [facility] HIB 4 Dose Schedule 2002 Completed [facility] 00:00:00 [facility] Hep B, Adol or Pedi 2002 Completed [facility] Dosage 00:00:00 [facility] Polio (IPV/OPV) 2002 Completed [facility] 00:00:00 [facility] DTAP 2002 Completed [facility] 00:00:00 [facility] HIB 4 Dose Schedule 2002 Completed [facility] 00:00:00 [facility] Hep B, Adol or Pedi 2002 Completed [facility] Dosage 00:00:00 [facility] Polio (IPV/OPV) 2002 Completed [facility] 00:00:00 [facility] DTAP 2002 Completed [facility] 00:00:00 [facility] HIB 4 Dose Schedule 2002 Completed [facility] 00:00:00 [facility] Hep B, Adol or Pedi 2002 Completed [facility] Dosage 00:00:00 [facility] Polio (IPV/OPV) 2002 Completed [facility] 00:00:00 [facility] DTAP 2002 Completed [facility] 00:00:00 [facility] DTAP 2002 Completed [facility] 00:00:00 [facility] HIB 4 Dose Schedule 2002 Completed [facility] 00:00:00 [facility] Hep B, Adol or Pedi 2002 Completed [facility] Dosage 00:00:00 [facility] Polio (IPV/OPV) 2002 Completed [facility] 00:00:00 [facility] DTAP 2002 Completed [facility] 00:00:00 [facility] HIB 4 Dose Schedule 2002 Completed [facility] 00:00:00 [facility] HIB 4 Dose Schedule 2002 Completed [facility] 00:00:00 [facility] Hep B, Adol or Pedi 2002 Completed [facility] Dosage 00:00:00 [facility] Polio (IPV/OPV) 2002 Completed [facility] 00:00:00 [facility] DTAP 2002 Completed [facility] 00:00:00 [facility] HIB 4 Dose Schedule 2002 Completed [facility] 00:00:00 [facility] Hep B, Adol or Pedi 2002 Completed [facility] Dosage 00:00:00 [facility] Polio (IPV/OPV) 2002 Completed [facility] 00:00:00 [facility] Hep B, Adol or Pedi 2002 Completed [facility] Dosage 00:00:00 [facility] DTAP 2002 Completed [facility] 00:00:00 [facility] HIB 4 Dose Schedule 2002 Completed [facility] 00:00:00 [facility] Hep B, Adol or Pedi 2002 Completed [facility] Dosage 00:00:00 [facility] Polio (IPV/OPV) 2002 Completed [facility] 00[facility]00:00 [facility] Polio (IPV/OPV) 2002 Completed [facility] 00:00:00 [facility] DTAP 2002 Completed [facility] 00:00:00 [facility] HIB 4 Dose Schedule 2002 Completed [facility] 00:00:00 [facility] Hep B, Adol or Pedi 2002 Completed [facility] Dosage 00:00:00 [facility] Polio (IPV/OPV) 2002 Completed [facility] 00:00:00 [facility] DTAP 2002 Completed [facility] 00[facility]00:00 [facility] HIB 4 Dose Schedule 2002 Completed [facility] 00:00:00 [facility] Hep B, Adol or Pedi 2002 Completed [facility] Dosage 00:00:00 [facility] Polio (IPV/OPV) 2002 Completed [facility] 00:00:00 [facility] DTAP 2002 Completed [facility] 00:00:00 [facility] HIB 4 Dose Schedule 2002 Completed [facility] 00:00:00 [facility] Hep B, Adol or Pedi 2002 Completed [facility] Dosage 00:00:00 [facility] Polio (IPV/OPV) 2002 Completed [facility] 00:00:00 [facility] DTAP 2002 Completed [facility] 00:00:00 [facility] DTAP 2002 Completed [facility] 00:00:00 [facility] HIB 4 Dose Schedule 2002 Completed [facility] 00:00:00 [facility] Hep B, Adol or Pedi 2002 Completed [facility] Dosage 00:00:00 [facility] Polio (IPV/OPV) 2002 Completed [facility] 00:00:00 [facility] HIB 4 Dose Schedule 2002 Completed [facility] 00:00:00 [facility] DTAP 2002 Completed [facility] 00:00:00 [facility] HIB 4 Dose Schedule 2002 Completed [facility] 00:00:00 [facility] Hep B, Adol or Pedi 2002 Completed [facility] of Dosage 00:00:00 [facility] Polio (IPV/OPV) 2002 Completed [facility] 00:00:00 [facility] Hep B, Adol or Pedi 2002 Completed [facility] of Dosage 00:00:00 [facility] DTAP 2002 Completed [facility] 00:00:00 [facility] HIB 4 Dose Schedule 2002 Completed [facility] 00:00:00 [facility] Hep B, Adol or Pedi 2002 Completed [facility] of Dosage 00:00:00 [facility] Polio (IPV/OPV) 2002 Completed [facility] 00:00:00 [facility] Polio (IPV/OPV) 2002 Completed [facility] 00:00:00 [facility] DTAP 2002 Completed [facility] 00:00:00 [facility] HIB 4 Dose Schedule 2002 Completed [facility] 00:00:00 [facility] Hep B, Adol or Pedi 2002 Completed [facility] of Dosage 00:00:00 [facility] Polio (IPV/OPV) 2002 Completed [facility] 00:00:00 [facility] DTAP 2002 Completed [facility] 00:00:00 [facility] HIB 4 Dose Schedule 2002 Completed [facility] 00:00:00 [facility] Hep B, Adol or Pedi 2002 Completed [facility] of Dosage 00:00:00 [facility] Polio (IPV/OPV) 2002 Completed [facility] 00:00:00 [facility] DTAP 2002 Completed [facility] 00:00:00 [facility] HIB 4 Dose Schedule 2002 Completed [facility] 00:00:00 [facility] Hep B, Adol or Pedi 2002 Completed [facility] of Dosage 00:00:00 [facility] Polio (IPV/OPV) 2002 Completed [facility] 00:00:00 [facility] DTAP 2002 Completed [facility] 00:00:00 [facility] HIB 4 Dose Schedule 2002 Completed [facility] 00:00:00 [facility] Hep B, Adol or Pedi 2002 Completed [facility] of Dosage 00:00:00 [facility] Polio (IPV/OPV) 2002 Completed [facility] 00:00:00 [facility] DTAP 2002 Completed [facility] 00:00:00 [facility] DTAP 2002 Completed [facility] 00:00:00 [facility] HIB 4 Dose Schedule 2002 Completed [facility] 00:00:00 [facility] Hep B, Adol or Pedi 2002 Completed [facility] Dosage 00:00:00 [facility] Polio (IPV/OPV) 2002 Completed [facility] 00:00:00 [facility] HIB 4 Dose Schedule 2002 Completed [facility] 00:00:00 [facility] DTAP 2002 Completed [facility] 00:00:00 [facility] HIB 4 Dose Schedule 2002 Completed [facility] 00:00:00 [facility] Hep B, Adol or Pedi 2002 Completed [facility] of Dosage 00:00:00 [facility] Polio (IPV/OPV) 2002 Completed [facility] 00:00:00 [facility] DTAP 2002 Completed [facility] 00:00:00 [facility] HIB 4 Dose Schedule 2002 Completed [facility] 00:00:00 [facility] Hep B, Adol or Pedi 2002 Completed [facility] of Dosage 00:00:00 [facility] Polio (IPV/OPV) 2002 Completed [facility] 00:00:00 [facility] Hep B, Adol or Pedi 2002 Completed [facility] Dosage 00:00:00 [facility] DTAP 2002 Completed [facility] 00:00:00 [facility] HIB 4 Dose Schedule 2002 Completed [facility] 00:00:00 [facility] Hep B, Adol or Pedi 2002 Completed [facility] of Dosage 00:00:00 [facility] Polio (IPV/OPV) 2002 Completed [facility] 00:00:00 [facility] Polio (IPV/OPV) 2002 Completed [facility] 00:00:00 [facility] DTAP 2002 Completed [facility] 00:00:00 [facility] HIB 4 Dose Schedule 2002 Completed [facility] 00:00:00 [facility] Hep B, Adol or Pedi 2002 Completed [facility] of Dosage 00:00:00 [facility] Polio (IPV/OPV) 2002 Completed [facility] 00:00:00 [facility] DTAP 2002 Completed [facility] 00:00:00 [facility] HIB 4 Dose Schedule 2002 Completed [facility] 00:00:00 [facility] Hep B, Adol or Pedi 2002 Completed [facility] of Dosage 00:00:00 [facility] Polio (IPV/OPV) 2002 Completed [facility] 00:00:00 [facility] DTAP 2002 Completed [facility] 00:00:00 [facility] HIB 4 Dose Schedule 2002 Completed [facility] 00:00:00 [facility] Hep B, Adol or Pedi 2002 Completed [facility] of Dosage 00:00:00 [facility] Polio (IPV/OPV) 2002 Completed [facility] 00:00:00 [facility] DTAP 2002 Completed [facility] 00:00:00 [facility] HIB 4 Dose Schedule 2002 Completed [facility] 00:00:00 [facility] Hep B, Adol or Pedi 2002 Completed [facility] of Dosage 00:00:00 [facility] Polio (IPV/OPV) 2002 Completed [facility] 00:00:00 [facility] DTAP 2002 Completed [facility] 00:00:00 [facility] HIB 4 Dose Schedule 2002 Completed [facility] 00:00:00 [facility] Hep B, Adol or Pedi 2002 Completed [facility] of Dosage 00:00:00 [facility] Polio (IPV/OPV) 2002 Completed [facility] 00:00:00 [facility] DTAP 2002 Completed [facility] 00:00:00 [facility] DTAP 2002 Completed [facility] 00:00:00 [facility] HIB 4 Dose Schedule 2002 Completed [facility] 00:00:00 [facility] Hep B, Adol or Pedi 2002 Completed [facility] Dosage 00:00:00 [facility] Polio (IPV/OPV) 2002 Completed [facility] 00:00:00 [facility] HIB 4 Dose Schedule 2002 Completed [facility] 00:00:00 [facility] DTAP 2002 Completed [facility] 00:00:00 [facility] HIB 4 Dose Schedule 2002 Completed [facility] 00:00:00 [facility] Hep B, Adol or Pedi 2002 Completed [facility] of Dosage 00:00:00 [facility] Polio (IPV/OPV) 2002 Completed [facility] 00:00:00 [facility] DTAP 2002 Completed [facility] 00:00:00 [facility] Hep B, Adol or Pedi 2002 Completed [facility] of Dosage 00:00:00 [facility] HIB 4 Dose Schedule 2002 Completed [facility] of 00:00:00 [facility] Hep B, Adol or Pedi 2002 Completed [facility] of Dosage 00:00:00 [facility] Polio (IPV/OPV) 2002 Completed [facility] 00:00:00 [facility] Polio (IPV/OPV) 2002 Completed [facility] 00:00:00 [facility] DTAP 2002 Completed [facility] 00:00:00 [facility] HIB 4 Dose Schedule 2002 Completed [facility] 00:00:00 [facility] Hep B, Adol or Pedi 2002 Completed [facility] of Dosage 00:00:00 [facility] Polio (IPV/OPV) 2002 Completed [facility] 00:00:00 [facility] DTAP 2002 Completed [facility] 00:00:00 [facility] HIB 4 Dose Schedule 2002 Completed [facility] 00:00:00 [facility] Hep B, Adol or Pedi 2002 Completed [facility] of Dosage 00:00:00 [facility] Polio (IPV/OPV) 2002 Completed [facility] 00:00:00 [facility] DTAP 2002 Completed [facility] 00:00:00 [facility] HIB 4 Dose Schedule 2002 Completed [facility] 00:00:00 [facility] Hep B, Adol or Pedi 2002 Completed [facility] of Dosage 00:00:00 [facility] Polio (IPV/OPV) 2002 Completed [facility] 00:00:00 [facility] DTAP 2002 Completed [facility] 00:00:00 [facility] HIB 4 Dose Schedule 2002 Completed [facility] 00:00:00 [facility] Hep B, Adol or Pedi 2002 Completed [facility] of Dosage 00:00:00 [facility] Polio (IPV/OPV) 2002 Completed [facility] 00:00:00 [facility] DTAP 2002 Completed [facility] 00:00:00 [facility] HIB 4 Dose Schedule 2002 Completed [facility] 00:00:00 [facility] Hep B, Adol or Pedi 2002 Completed [facility] of Dosage 00:00:00 [facility] Polio (IPV/OPV) 2002 Completed [facility] 00:00:00 [facility] DTAP 2002 Completed [facility] 00:00:00 [facility] HIB 4 Dose Schedule 2002 Completed [facility] 00:00:00 [facility] DTAP 2002 Completed [facility] 00:00:00 [facility] Hep B, Adol or Pedi 2002 Completed [facility] of Dosage 00:00:00 [facility] Polio (IPV/OPV) 2002 Completed [facility] 00:00:00 [facility] DTAP 2002 Completed [facility] 00:00:00 [facility] HIB 4 Dose Schedule 2002 Completed [facility] 00:00:00 [facility] Hep B, Adol or Pedi 2002 Completed [facility] Dosage 00:00:00 [facility] HIB 4 Dose Schedule 2002 Completed [facility] 00:00:00 [facility] Polio (IPV/OPV) 2002 Completed [facility] 00:00:00 [facility] DTAP 2002 Completed [facility] 00:00:00 [facility] HIB 4 Dose Schedule 2002 Completed [facility] 00:00:00 [facility] Hep B, Adol or Pedi 2002 Completed [facility] of Dosage 00:00:00 [facility] Polio (IPV/OPV) 2002 Completed [facility] 00:00:00 [facility] DTAP 2002 Completed [facility] 00:00:00 [facility] Hep B, Adol or Pedi 2002 Completed [facility] of Dosage 00:00:00 [facility] HIB 4 Dose Schedule 2002 Completed [facility] 00:00:00 [facility] Hep B, Adol or Pedi 2002 Completed [facility] of Dosage 00:00:00 [facility] Polio (IPV/OPV) 2002 Completed [facility] 00:00:00 [facility] DTAP 2002 Completed [facility] 00:00:00 [facility] HIB 4 Dose Schedule 2002 Completed [facility] 00:00:00 [facility] Polio (IPV/OPV) 2002 Completed [facility] 00:00:00 [facility] Hep B, Adol or Pedi 2002 Completed [facility] of Dosage 00:00:00 [facility] Polio (IPV/OPV) 2002 Completed [facility] 00:00:00 [facility] DTAP 2002 Completed [facility] 00:00:00 [facility] HIB 4 Dose Schedule 2002 Completed [facility] 00:00:00 [facility] Hep B, Adol or Pedi 2002 Completed [facility] of Dosage 00:00:00 [facility] Polio (IPV/OPV) 2002 Completed [facility] 00:00:00 [facility] DTAP 2002 Completed [facility] 00:00:00 [facility] HIB 4 Dose Schedule 2002 Completed [facility] 00:00:00 [facility] Hep B, Adol or Pedi 2002 Completed [facility] of Dosage 00:00:00 [facility] Polio (IPV/OPV) 2002 Completed [facility] 00:00:00 [facility] DTAP 2002 Completed [facility] 00:00:00 [facility] HIB 4 Dose Schedule 2002 Completed [facility] 00:00:00 [facility] Hep B, Adol or Pedi 2002 Completed [facility] of Dosage 00:00:00 [facility] Polio (IPV/OPV) 2002 Completed [facility] 00:00:00 [facility] DTAP 2002 Completed [facility] 00:00:00 [facility] HIB 4 Dose Schedule 2002 Completed [facility] 00:00:00 [facility] Hep B, Adol or Pedi 2002 Completed [facility] of Dosage 00:00:00 [facility] Polio (IPV/OPV) 2002 Completed [facility] 00:00:00 [facility] DTAP 2002 Completed [facility] 00:00:00 [facility] HIB 4 Dose Schedule 2002 Completed [facility] 00:00:00 [facility] Hep B, Adol or Pedi 2002 Completed [facility] of Dosage 00:00:00 [facility] Polio (IPV/OPV) 2002 Completed [facility] 00:00:00 [facility] DTAP 2002 Completed [facility] 00:00:00 [facility] HIB 4 Dose Schedule 2002 Completed [facility] 00:00:00 [facility] Hep B, Adol or Pedi 2002 Completed [facility] of Dosage 00:00:00 [facility] Polio (IPV/OPV) 2002 Completed [facility] 00:00:00 [facility] DTAP 2002 Completed [facility] 00:00:00 [facility] HIB 4 Dose Schedule 2002 Completed [facility] 00:00:00 [facility] Hep B, Adol or Pedi 2002 Completed [facility] of Dosage 00:00:00 [facility] Polio (IPV/OPV) 2002 Completed [facility] 00:00:00 [facility] DTAP 2002 Completed [facility] 00:00:00 [facility] DTAP 2002 Completed [facility] 00:00:00 [facility] HIB 4 Dose Schedule 2002 Completed [facility] 00:00:00 [facility] Hep B, Adol or Pedi 2002 Completed [facility] of Dosage 00:00:00 [facility] Polio (IPV/OPV) 2002 Completed [facility] 00:00:00 [facility] HIB 4 Dose Schedule 2002 Completed [facility] 00:00:00 [facility] DTAP 2002 Completed [facility] 00:00:00 [facility] HIB 4 Dose Schedule 2002 Completed [facility] 00:00:00 [facility] Hep B, Adol or Pedi 2002 Completed [facility] of Dosage 00:00:00 [facility] Polio (IPV/OPV) 2002 Completed [facility] 00:00:00 [facility] DTAP 2002 Completed [facility] 00:00:00 [facility] HIB 4 Dose Schedule 2002 Completed [facility] 00:00:00 [facility] Hep B, Adol or Pedi 2002 Completed [facility] of Dosage 00:00:00 [facility] Hep B, Adol or Pedi 2002 Completed [facility] of Dosage 00:00:00 [facility] Hep B, Adol or Pedi 2002 Completed [facility] of Dosage 00:00:00 [facility] Hep B, Adol or Pedi [...] 2002 Completed [facility] of Dosage 00:00:00 [facility] Hep B, Adol or Pedi 2002 Completed [facility] of Dosage 00:00:00 [facility] Hep B, Adol or Pedi 2002 Completed [facility] of Dosage 00:00:00 [facility] Hep B, Adol or Pedi 2002 Completed [facility] of Dosage 00:00:00 [facility] Hep B, Adol or Pedi 2002 Completed [facility] of Dosage 00:00:00 [facility] Hep B, Adol or Pedi 2002 Completed [facility] of Dosage 00:00:00 [facility] Hep B, Adol or Pedi 2002 Completed [facility] of Dosage 00:00:00 [facility] Hep B, Adol or Pedi 2002 Completed [facility] of Dosage 00:00:00 [facility] Hep B, Adol or Pedi 2002 Completed [facility] of Dosage 00:00:00 [facility] Hep B, Adol or Pedi 2002 Completed [facility] of Dosage 00:00:00 [facility] Hep B, Adol or Pedi 2002 Completed [facility] of Dosage 00:00:00 [facility] Hep B, Adol or Pedi 2002 Completed [facility] of Dosage 00:00:00 [facility] Hep B, Adol or Pedi 2002 Completed [facility] of Dosage 00:00:00 [facility] Hep B, Adol or Pedi 2002 Completed [facility] of Dosage 00:00:00 [facility] Vital Signs Vital Name Observation Time Observation Value Comments Source Systolic blood 2022-08-11 16:19:00 110 mm[Hg] Univer [facility] of pressure [facility] Diastolic blood 2022-08-11 16:19:00 77 mm[Hg] [facility]ive [facility] of pressure [facility] Heart rate 2022-08-11 16:19:00 89 /min [facility] Body temperature 2022-08-11 16:19:00 37.33 [facility] Res[facility] rate 2022-08-11 16:19:00 20 /min [facility] Body height 2022-08-11 16:19:00 160 cm [facility] Body weight 2022-08-11 16:19:00 78.075 kg [facility] BMI 2022-08-11 16:19:00 30.49 kg/m2 [facility] Oxygen saturation in 2022-08-11 16:19:00 98 /min [facility] of Arterial blood by [facility] Pulse oximetry Branch Body height 2022-05-27 20:21:00 157.5 cm [facility] Body weight 2022-05-27 20:21:00 84.55 kg [facility] BMI 2022-05-27 20:21:00 34.09 kg/m2 [facility] Systolic blood 2022-05-27 20:21:00 121 mm[Hg] [facility]iver [facility] of pressure [facility] Diastolic blood 2022-05-27 20:21:00 69 mm[Hg] [facility]ive [facility] of pressure [facility] Heart rate 2022-05-27 20:21:00 72 /min [facility] Body temperature 2022-05-27 20:21:00 37.11 Cara [facility] Respiratory rate 2022-05-27 20:21:00 17 /min [facility] Systolic blood 2022-02-05 19:09:00 137 mm[Hg] [facility] of pressure [facility] Diastolic blood 2022-02-05 19:09:00 79 mm[Hg] [facility]ive [facility] of pressure [facility] Heart rate 2022-02-05 19:09:00 94 /min [facility] Body temperature 2022-02-05 19:09:00 37.06 Cara [facility] Respiratory rate 2022-02-05 19:09:00 18 /min [facility] Body height 2022-02-05 19:09:00 157.5 cm [facility] Body weight 2022-02-05 19:09:00 84.732 kg [facility] BMI 2022-02-05 19:09:00 34.17 kg/m2 [facility] Systolic blood 2022-01-31 15:02:00 122 mm[Hg] [facility] pressure [facility] Diastolic blood 2022-01-31 15:02:00 77 mm[Hg] [facility] of pressure [facility] Heart rate 2022-01-31 15:02:00 67 /min [facility] Body temperature 2022-01-31 15:02:00 37.11 Cara [facility] Body height 2022-01-31 15:02:00 157.5 cm [facility] Body weight 2022-01-31 15:02:00 82.555 kg [facility] BMI 2022-01-31 15:02:00 33.29 kg/m2 [facility] Systolic blood 2022-01-02 14:12:00 109 mm[Hg] [facility] of pressure [facility] Diastolic blood 2022-01-02 14:12:00 67 mm[Hg] [facility] of pressure [facility] Heart rate 2022-01-02 14:12:00 58 /min [facility] Body temperature 2022-01-02 14:12:00 37.06 [facility] Respiratory rate 2022-01-02 14:12:00 18 /min [facility] Body height 2022-01-02 14:12:00 157.5 cm [facility] Body weight 2022-01-02 14:12:00 80.74 kg [facility] BMI 2022-01-02 14:12:00 32.56 kg/m2 [facility] Systolic blood 2021-01-06 02:00:00 149 mm[Hg] [facility]iver [facility] of pressure [facility] Diastolic blood 2021-01-06 02:00:00 97 mm[Hg] Unive [facility] of pressure [facility] Heart rate 2021-01-06 02:00:00 101 /min [facility] Respiratory rate 2021-01-06 02:00:00 17 /min Univ ersity of [facility] Oxygen saturation in 2021-01-06 02:00:00 100 /min [facility] Arterial blood by [facility] Pulse oximetry Branch Body temperature 2021-01-06 01:46:00 36.06 Cara [facility] Body height 2021-01-06 01:46:00 157.5 cm [facility] Body weight 2021-01-06 01:46:00 81.647 kg [facility] BMI 2021-01-06 01:46:00 32.92 kg/m2 [facility] Body mass index 2021-01-06 01:46:00 96.57 % Unive rsity of (BMI) [Percentile] [facility] ical Per age and sex Branch Systolic blood 2020-04-02 17:35:00 116 mm[Hg] Univer [facility]ity of pressure [facility] Diastolic blood 2020-04-02 17:35:00 72 mm[Hg] Unive [facility]ity of pressure [facility] Heart rate 2020-04-02 16:53:00 73 /min [facility] of [facility] Body temperature 2020-04-02 16:53:00 36.44 Cara [facility] of [facility] Respiratory rate 2020-04-02 16:53:00 18 /min [facility] Body height 2020-04-02 16:53:00 159 cm [facility] Body weight 2020-04-02 16:53:00 82.101 kg [facility] BMI 2020-04-02 16:53:00 32.48 kg/m2 [facility] of [facility] Oxygen saturation in 2020-04-02 16:53:00 98 /min [facility] of Arterial blood by [facility] Pulse oximetry Branch Systolic blood 2020-04-02 17:35:00 116 mm[Hg] Univer [facility]ity of pressure [facility] Diastolic blood 2020-04-02 17:35:00 72 mm[Hg] Unive rsity of pressure [facility] Heart rate 2020-04-02 16:53:00 73 /min [facility] Body temperature 2020-04-02 16:53:00 36.44 Cara [facility] Respiratory rate 2020-04-02 16:53:00 18 /min Univ ersity of [facility] Body height 2020-04-02 16:53:00 159 cm [facility] Body weight 2020-04-02 16:53:00 82.101 kg [facility] BMI 2020-04-02 16:53:00 32.48 kg/m2 [facility] Oxygen saturation in 2020-04-02 16:53:00 98 /min [facility] of Arterial blood by [facility] Pulse oximetry Branch Systolic blood 2020-02-24 19:17:00 121 mm[Hg] Univer sity of pressure [place] [facility] Diastolic blood 2020-02-24 19:17:00 77 mm[Hg] Unive rsity of pressure [place] [facility] Heart rate 2020-02-24 19:16:00 84 /min [facility] [place] [facility] Body temperature 2020-02-24 19:16:00 36.56 Cara Univ ersity [facility] [place] [facility] Respiratory rate 2020-02-24 19:16:00 18 /min Univ ersity [facility] [place] [facility] Body weight 2020-02-24 19:16:00 83.598 kg [facility]i [facility] [place] [facility] Oxygen saturation in 2020-02-24 19:16:00 100 /min University of Arterial blood by [facility] Pulse oximetry Branch Systolic blood 2020-01-30 21:13:00 123 mm[Hg] Univer sity of pressure [place] [facility] Diastolic blood 2020-01-30 21:13:00 70 mm[Hg] Unive rsity of pressure [place] [facility] Heart rate 2020-01-30 21:13:00 83 /min [facility]i ty [facility] [place] [facility] Body temperature 2020-01-30 21:13:00 37.11 Cara Univ [facility] [place] [facility] Respiratory rate 2020-01-30 21:13:00 18 /min Univ ersity [facility] [place] [facility] Body height 2020-01-30 21:13:00 157.5 cm [facility] [place] [facility] Body weight 2020-01-30 21:13:00 85.276 kg [facility] [place] [facility] BMI 2020-01-30 21:13:00 34.39 kg/m2 [facility] [place] [facility] Systolic blood 2020-01-10 20:41:00 129 mm[Hg] Univer sity of [facility] [place] [facility] Diastolic blood 2020-01-10 20:41:00 72 mm[Hg] Unive rsity of [facility] [place] [facility] Heart rate 2020-01-10 20:41:00 98 /min [facility] [place] [facility] Body temperature 2020-01-10 20:41:00 36.72 Cara Univ [facility] [place] [facility] Respiratory rate 2020-01-10 20:41:00 18 /min Univ ers[facility] [place] [facility] Body height 2020-01-10 20:41:00 157.5 cm [facility] [place] [facility] Body weight 2020-01-10 20:41:00 85.276 kg [facility] [place] [facility] BMI 2020-01-10 20:41:00 34.39 kg/m2 [facility] [place] [facility] Body temperature 2019-10-12 19:39:00 35.72 Cara Univ [facility] [place] [facility] Body height 2019-10-12 19:39:00 159 cm [facility]i [facility] [place] [facility] Body weight 2019-10-12 19:39:00 82.6 kg [facility] [place] [facility] BMI 2019-10-12 19:39:00 32.67 kg/m2 [facility] [place] [facility] Systolic blood 2019-10-07 18:10:00 121 mm[Hg] Univer sity of [facility] [place] [facility] Diastolic blood 2019-10-07 18:10:00 79 mm[Hg] Unive rsity of pressure [place] [facility] Heart rate 2019-10-07 18:10:00 77 /min [facility]i [facility] [place] [facility] Body temperature 2019-10-07 18:10:00 36.89 Cara Univ [facility] [place] [facility] Respiratory rate 2019-10-07 18:10:00 18 /min Univ ers[facility] [place] [facility] Body height 2019-10-07 18:10:00 157.5 cm [facility]i [facility] [place] [facility] Body weight 2019-10-07 18:10:00 81.647 kg [facility] [place] [facility] BMI 2019-10-07 18:10:00 32.92 kg/m2 [facility] [place] [facility] Systolic blood 2019-10-06 20:18:00 123 mm[Hg] Univer sity of pressure [place] [facility] Diastolic blood 2019-10-06 20:18:00 86 mm[Hg] Unive rsity of [facility] [place] [facility] Heart rate 2019-10-06 20:18:00 96 /min Universi [facility] [place] [facility] Body temperature 2019-10-06 20:18:00 36.78 Cara Univ ersity of [facility] Branch Respiratory rate 2019-10-06 20:18:00 16 /min Univ ersity of [facility] Branch Body height 2019-10-06 20:18:00 157.5 cm Universi ty [facility] [place] [facility] Body weight 2019-10-06 20:18:00 80.786 kg [facility]i [facility] [place] [facility] BMI 2019-10-06 20:18:00 32.57 kg/m2 Universi ty of [facility] Oxygen saturation in 2019-10-06 20:18:00 98 /min University of Arterial blood by [facility] Pulse oximetry Branch Systolic blood 2019-08-04 18:52:00 129 mm[Hg] Univer sity of pressure [facility] Branch Diastolic blood 2019-08-04 18:52:00 78 mm[Hg] Unive rsity of pressure [facility] Heart rate 2019-08-04 18:52:00 86 /min Universi ty of [facility] Body temperature 2019-08-04 18:52:00 37.22 Cara Univ ersity of [facility] Branch Respiratory rate 2019-08-04 18:52:00 18 /min Univ ersity of [facility] Branch Body height 2019-08-04 18:52:00 157.5 cm [facility]i ty [facility] [place] [facility] Body weight 2019-08-04 18:52:00 84.369 kg Universi ty of [facility] Branch BMI 2019-08-04 18:52:00 34.02 kg/m2 Universi ty of [facility] Systolic blood 2019-05-23 21:28:00 121 mm[Hg] Univer sity of pressure [facility] Branch Diastolic blood 2019-05-23 21:28:00 77 mm[Hg] Unive rsity of pressure [facility] Branch Heart rate 2019-05-23 21:28:00 80 /min Universi ty of [facility] Branch Body temperature 2019-05-23 21:28:00 37.39 Cara Univ ersity of [facility] Branch Respiratory rate 2019-05-23 21:28:00 18 /min Univ ersity of [facility] Body height 2019-05-23 21:28:00 158.5 cm Universi ty [facility] [place] [facility] [place] Body weight 2019-05-23 21:28:00 85.095 kg [facility] [place] [facility] BMI 2019-05-23 21:28:00 33.87 kg/m2 [facility] [place] [facility] Oxygen saturation in 2019-05-23 21:28:00 100 /min University Arterial blood by [facility] Pulse oximetry Branch Systolic blood 2019-05-16 21:51:00 123 mm[Hg] Univer sity of pressure [place] [facility] Diastolic blood 2019-05-16 21:51:00 73 mm[Hg] Unive rsity of pressure [facility] Heart rate 2019-05-16 21:51:00 72 /min [facility]i [facility] [place] [facility] Body temperature 2019-05-16 21:51:00 36.78 Cara Univ [facility] [place] [facility] Respiratory rate 2019-05-16 21:51:00 18 /min Univ ers[facility] [place] [facility] Body height 2019-05-16 21:51:00 157.5 cm [facility] [place] [facility] Body weight 2019-05-16 21:51:00 85.276 kg [facility] [place] [facility] BMI 2019-05-16 21:51:00 34.39 kg/m2 [facility] [place] [facility] Body temperature 2019-05-03 20:09:00 36.83 Cara Univ [facility] [place] [facility] Body height 2019-05-03 20:09:00 157.5 cm [facility] [place] [facility] Body weight 2019-05-03 20:09:00 82.2 kg [facility] [place] [facility] BMI 2019-05-03 20:09:00 33.14 kg/m2 Universi ty of [facility] Body temperature 2019-03-22 21:03:00 37 Cara Univ [facility] [place] [facility] Body weight 2019-03-22 21:03:00 83.4 kg [facility] [place] [facility] Systolic blood 2018-11-12 13:21:00 120 mm[Hg] Univer sity of [facility] [place] [facility] Diastolic blood 2018-11-12 13:21:00 78 mm[Hg] Unive rsity of pressure [facility] Heart rate 2018-11-12 13:21:00 72 /min [facility]i [facility] [place] [facility] Body temperature 2018-11-12 13:21:00 37.83 Cara Univ [facility] [place] [facility] Respiratory rate 2018-11-12 13:21:00 18 /min Univ [facility] [place] [facility] Body weight 2018-11-12 13:21:00 76.023 kg [facility] [place] [facility] BMI 2018-11-12 13:21:00 29.69 kg/m2 [facility] [place] [facility] Systolic blood 2018-11-11 13:42:00 123 mm[Hg] Univer sity of pressure [place] [facility] Diastolic blood 2018-11-11 13:42:00 81 mm[Hg] Unive rsity of pressure [facility] Heart rate 2018-11-11 13:42:00 64 /min Universi ty of [facility] Body temperature 2018-11-11 13:42:00 36.94 Cara Univ [facility]ity [facility] [place] [facility] [place] Respiratory rate 2018-11-11 13:42:00 18 /min Univ ersity of [facility] Body height 2018-11-11 13:42:00 160 cm Universi ty of [facility] Body weight 2018-11-11 13:42:00 75.297 kg Universi ty of [facility] BMI 2018-11-11 13:42:00 29.41 kg/m2 Universi ty of [facility] Systolic blood 2018-10-07 20:01:00 123 mm[Hg] Univer sity of [facility] Diastolic blood 2018-10-07 20:01:00 80 mm[Hg] Unive rsity of pressure [facility] Branch Heart rate 2018-10-07 20:01:00 97 /min Universi ty of [facility] Body temperature 2018-10-07 20:01:00 36.56 Cara [facility] Respiratory rate 2018-10-07 20:01:00 16 /min [facility] Body height 2018-10-07 20:01:00 158.7 cm Universi ty [facility] [place] [facility] [place] Body weight 2018-10-07 20:01:00 74.844 kg [facility]i ty [facility] [place] [facility] [place] BMI 2018-10-07 20:01:00 29.72 kg/m2 Universi ty [facility] Oxygen saturation in 2018-10-07 20:01:00 99 /min [facility] Arterial blood by [facility] Pulse oximetry Branch Procedures Procedure Date / Time Performing Source Performed Clinician POCT MOLECULAR STREP 2022-08-11 Unknown, [facility] Branch POCT URINALYSIS W/O SPECIFIC 2022-05-27 Rolan Casarez [facility] GRAVITY 20:36:00 Medical Branch [facility] PATIENT FINANCIAL POLICY 2022-05-27 Doctor Unassigned, [facility] 20:07:26 [facility] BI ULTRASOUND BREAST COMPLETE 2022-02-21 Rolan Casarez [facility] BILATERAL 19:23:00 [facility] Branch US PELVIS COMPLETE WITH 2022-02-21 Rolan Casarez [facility] TRANSVAGINAL 17:55:34 Medical Branch DISCLOSURE AND CONSENT, 2022-01-31 Doctor Unassrenu, [facility] MEDICAL AND SURGICAL 06:01:00 [facility] PROCEDURES POCT TEST 2022-01-31 [facility] 00:00:00 [facility] ASSIGNMENT OF BENEFITS 2022-01-02 Doctor Unassrenu, [facility] 14:07:23 [facility] POCT TEST 2021-01-06 Roma Adame [facility] 02:44:00 [facility] URINALYSIS 2021-01-06 Roma Adame [facility] ex 02:34:00 [facility] URINE DRUG (IMMUNOASSAY) - 2021-01-06 Roma Adame [facility] COMPREHENSIVE DRUG SCREEN W/O 02:34[facility]00 [facility] LACT[facility]ID WHOLE BLOOD 2021-01-06 Roma Adame [facility] 02:23:00 [facility] COMP. METABOLIC PANEL ([id number]) 2021-01-06 Roma Adame [facility] 02:03:00 [facility] ETHANOL 2021-01-06 Roma Adame [facility] ex 02:03:00 [facility] CBC WITH DIFF 2021-01-06 Roma Adame [facility] ex 02:03:00 [facility] MENINGOCOCCAL B VACCINE, OMV, 2020-04-16 Karen Tamayo [facility] 2 DOSE, IM 16:43:42 [facility] POCT RAPID STREP SCREEN FOR 2020-02-24 Karen Tamayo [facility] A 19:24:00 [facility] EXTERNAL PROVIDER RECORDS 2019-10-13 Doctor Unassigned, [facility] 05:01:00 [facility] PEDI ELECTROENCEPHALOGRAM 2019-10-12 Dalia Arreguin [facility] 00:00:00 Medical Branch DISCLOSURE AND CONSENT, 2019-10-07 [facility] MEDICAL AND SURGICAL 05:01:00 [facility] PROCEDURES AUTHORIZATION TO RELEASE PHI 2019-10-06 Doctor Aliza, [facility] TO [facility] 05:01:00 [facility] BI ULTRASOUND BREAST LIMITED 2019-08-16 Aleaxndria Whitmore [facility] LEFT 13:29:57 [facility] [place] CONSENT FOR CONTRACEPTION 2019-08-04 Doctor Aliza, [facility] 05:01:00 [facility] POCT TEST 2019-08-04 Alexandria Whitmore [facility] [place] 00:00:00 [facility] [place] POCT URINALYSIS W/O SPECIFIC 2019-08-04 Alexandria Whitmore [facility] GRAVITY 00:00:00 Medical [place] AGREEMENTS AUTHORIZATIONS AND 2019-06-16 Doctor Kelirenu, [facility] IRREVOCABLE ASSIGNMENTS (FORM 05:01:00 [facility] 2000) CONSENT/REFUSAL FOR DIAGNOSIS 2019-05-03 Doctor Aliza, [facility] AND TREATMENT 19:11:33 [facility] [place] URINE CULTURE 2019-03-22 [facility] [place] 21:53:00 Medical Branch CONSENT FOR DEPO-PROVERA 2018-11-11 Doctor Aliza, [facility] 05:01:00 [facility] [place] MENINGOCOCCAL B 2018-10-07 Artur Karen [facility] [place] VACCINE(TRUMENBA) 2 OR 3 DOSE 20:59:48 [facility] SERIES, IM MENACTRA (MCV4-D) VACCINE 2018-10-07 Karen Tamayo [facility] 20:59:21 Medical Branch Encounters Start End Encounter Admission Attending Care Care Encounter Source Date/Time Date/Time Type Type Clinicians Facility Department ID 2021-01-22 Emergency [facility] [id number] Univers 07:20:19 elina [facility] 2023-01-05 2023-01-05 Outpatient Suly CASAREZ [facility] [id number] [facility] 08:30:00 08:30:00 ROLAN antoine [facility] 2022-08-11 2022-08-11 Outpatient R NELLA [facility] [id number] Univers 11:00:00 11:47:20 MANNY yoly [facility] 2022-08-11 2022-08-11 Urgent Carmen, Manny [facility] [id number] Univers 11:00:00 11:47:20 Care Unknown, Attending HEALTH [id number] ity of [place] [id number] Tawanda as NAYANA?BLEA [id number] [facility] [address] [place] MEDICAL OFFICE BUILDING 2022-06-16 2022-06-16 Telephone Hermelindo [facility] [id number] Univers 00:00:00 00:00:00 Rolan RIVERA 350.1.13.10 i [id number] [id number] [facility] 134 [facility] 2022-06-13 2022-06-13 Outpatient R HERMELINDO [facility] [id number] Univers 14:05:25 23:59:00 ROLAN antoine [facility] 2022-06-13 2022-06-13 [facility] Hermelindo [facility] 1..840.114 [id number] Univers 14:05:25 23:59:00 Encounter Rolan [facility] [id number] ity of [facility] 4.2.7.2.[place] [id number] [facility] [address] [place] [address] 2022-06-06 2022-06-06 Outpatient R HERMELINDO [facility] [id number] Univers 00:00:00 00:00:00 ROLAN antoine [facility] 2022-05-27 2022-05-27 Outpatient R HERMELINDO [facility] [id number] Univers 14:00:00 15:06:27 [facility] 2022-05-27 2022-05-27 Office [facility] [id number] Univers 14:00:00 15:06:27 Visit Rolan RIVERA 350.1.13.10 i [place] [id number] Wy dical [facility] 134 Branch [facility] 2022-05-27 2022-05-27 Orders Doctor PATITO 1.2.840.114 [id number] Univers 00:00:00 00:00:00 Only Unassigned, JACQUE 350.1.13.[address] [facility] [id number] Tawanda as [id number] [facility] 009 Branch 2022-02-21 2022-02-21 [facility] 1.2.840.114 [id number] Univers 12:00:22 23:59:00 Encounter Rolan Y HEALTH 350.1.13.10 ity of [place] [id number] [facility] 800 Branch 2022-02-21 2022-02-21 Outpatient R [facility] [id number] Univers 10:48:03 11:59:00 ROLAN ity of [facility] 2022-02-21 2022-02-21 [facility] 1.2.840.114 [id number] Univers 10:48:03 11:59:00 Encounter Rolan Y HEALTH 350.1.13.10 ity of [facility] 4.2.7.2.[place] [id number] [facility] 806 Branch 2022-02-05 2022-02-05 Outpatient R [facility] [id number] Univers 13:00:00 13:36:35 [place] antoine of [facility] 2022-02-05 2022-02-05 Office [facility] [id number] Univers 13:00:00 13:36:35 Visit [place] SAPP 350.1.13.10 i ty of [place] [id number] [facility] [address] Branch 2022-02-05 2022-02-05 Telephone [facility] 1.2.007.900 [id number] Univers 00:00:00 00:00:00 [place] RIVERA 350.1.13.10 [place] [id number] Wy dical NAL [address] [place] [address] 2022-02-05 2022-02-05 Letter [facility] [id number] Univers 00:00:00 00:00:00 (Out) [place] L SEKOU 350.1.13.10 i ty of [place] [id number] [address] 2022-01-31 2022-01-31 Outpatient R JONELLE [facility] [id number] Univers 08:30:00 09:33:19 [place] ity of [facility] 2022-01-31 2022-01-31 Office [facility] 1.2.840.114 [id number] Univers 08:30:00 09:33:19 Visit [place] RIVERA 350.1.13.10 [place] [id number] Wy dical [address] 2022-01-31 2022-01-31 Orders Doctor PATITO 1.2.840.114 [id number] Univers 00:00:00 00:00:00 Only Unassigned, JACQUE 350.1.13.[address] [facility] 4.2.7.2.686 Tawanda as [id number] [address] 2022-01-31 2022-01-31 Letter [facility] 1.2.840.114 [id number] Univers 00:00:00 00:00:00 (Out) [place] RIVERA 350.1.13.10 [place] of [place] [id number] Wy dical [address] 2022-01-13 2022-01-13 Outpatient R GREGORIO DELCID [facility] [id number] Univers 09:00:00 09:00:00 ity of [facility] 2022-01-13 2022-01-13 Telephone [facility] [id number] Univers 00:00:00 00:00:00 Liu SPECIALTY 350.1.13.10 ity of [place]2.[place].2.[place] [id number] [facility] [address] [place] 2022-01-10 2022-01-10 Outpatient R JONATHAN [facility] [id number] Univers 13:00:00 13:00:00 HAYLEY ity [facility] 2022-01-02 2022-01-02 Ride Mechanic 2, Adc Lab [facility] 1.2.840.114 [id number] Univers 10:45:00 11:00:00 Visit Rolan Casarez 350.1.13.10 [place] of [place] [id number] Me dical NAL 353 [facility] 2022-01-02 2022-01-02 Outpatient R HERMELINDO [facility] [id number] Univers 09:30:00 10:12:42 ROLAN antoine [facility] 2022-01-02 2022-01-02 Office Hermelindo [facility] [id number] Univers 09:30:00 10:12:42 Visit Rolan RIVERA 350.1.13.10 i [place] [id number] Me dical NAL 134 [facility] 2022-01-02 2022-01-02 Orders Doctor PATITO 1.2.840.114 [id number] Univers 00:00:00 00:00:00 Only Unassigned, JACQUE 350.1.13.[address] [facility] 4.2.7.2.686 Tawanda as [id number] [facility] [address] [place] 2021-04-03 2021-04-03 Outpatient R ARTUR [facility] [id number] Univers 10:40:00 10:40:00 KAREN [facility] 2021-02-22 2021-02-22 Telephone Dre [facility] [id number] Univers 00:00:00 00:00:00 Alena RIVERA 350.1.13.10 [place] [id number] Me dical NAL [address] [facility] 2021-02-12 2021-02-12 Telephone [facility]na[facility] 1.2.840.114 [id number] Univers 00:00:00 00:00:00 Rolan NICOLE 350.1.13.10 i ty [facility] 4.2.7.2.[place] [id number] Wy dical NAL 134 [facility] 2021-01-05 2021-01-05 Emergency [facility] [id number] Univers 20:38:00 22:55:00 Roma Rivera 350.1.13.10 ity of [place] 4.2.7.2.686 [place] [id number] [facility] [address] [place] 2020-08-23 2020-08-23 Outpatient R HERMELINDO [facility] [id number] Univers 15:00:00 15:00:00 [facility] 2020-08-06 2020-08-06 Outpatient R HERMELINDO [facility] [id number] Univers 14:00:00 14:00:00 [facility] 2020-07-06 2020-07-06 Outpatient R ALLY [facility] [id number] Univers 11:20:00 11:20:34 EMELY [facility] 2020-06-15 2020-06-15 Outpatient R ALLY [facility] [id number] Univers 11:20:00 12:18:13 EMELY [facility] 2020-06-12 2020-06-12 Patient [facility] 1.2.840.114 [id number] 00:00:00 00:00:00 Outreach Chinmay PRIMARY 350.1.13.10 [place] CARE 4.2.7.2.686 PAVILLION [id number] [facility] 2020-06-12 2020-06-12 Patient [facility] 1.2.840.114 [id number] Univers 00:00:00 00:00:00 Outreach Chinmay PRIMARY 350.1.13.10 i ty of [place]2.[place].2.[place] [id number] Wy dical [address] [place] 2020-04-25 2020-04-25 Telephone Alexandria Whitmore [facility] 1.2.840.114 [id number] 00:00:00 00:00:00 Cam [place] 350.1.13.10 [place] 4.2.7.2.686 Professio [id number] [facility] 134 [facility] 2020-04-25 2020-04-25 Telephone Alexandria Whitmore [facility] 1.2.840.114 [id number] Univers 00:00:00 00:00:00 Cam [place] 350.1.13.10 i ty of [place] [id number] Wy dical [facility] 134 [facility] 2020-04-16 2020-04-16 Nurse Nurse, Tony Quevedo [facility] 1.2.84 [id number] Univers 10:23:22 10:43:22 Visit Alena Erickson 350.1.13. 10 ityoly [facility] [place]2.[place] [id number] Wy dical nal 225 [facility] 2020-04-16 2020-04-16 Outpatient R [facility] [id number] Univers 10:20:00 10:20:00 ity [facility] 2020-04-03 2020-04-03 Ride Mechanic 2, Adc Lab [facility] 1.2.840.114 [id number] Univers 11:08:11 11:23:11 Visit Alena Erickson 350.1.13. 10 ity [facility] 4.2.7.2.[place] [id number] Wy dical nal 353 [facility] 2020-04-03 2020-04-03 Outpatient R DRE [facility] [id number] Univers 11:00:00 11:00:00 ALENA antoine [facility] 2020-04-02 2020-04-02 Carmela Tamayo [facility] 1.2.840.114 [id number] Univers 11:30:50 13:18:47 Encounter Karen [place] 350.1.13.10 ity of [place] [id number] [address] 2020-04-02 2020-04-02 Office [facility] 1.2.840.114 [id number] Univers 10:47:55 11:50:03 Visit Karen [place] 350.1.13.10 i ty of [place]2.[place].2.[place] Profess[place] [id number] [address] 2020-04-02 2020-04-02 Office [facility] 1.2.840.114 [id number] 10:47:55 11:50:03 Visit Karen Rivera 350.1.13.10 [place] 4.2.7.2.686 Professio [id number] [address] 2020-04-02 2020-04-02 Outpatient [facility] [id number] Univers 10:40:00 10:40:00 [facility]EN [facility] [facility] 2020-04-02 2020-04-02 [facility] 1.2.840.114 [id number] Univers 00:00:00 00:00:00 (Out) Alena France Nicole 350.1.13.10 [place] [phone] [address] 2020-02-24 2020-02-24 Office [facility] 1.2.840.114 [id number] Univers 13:11:12 14:13:29 Visit Karen Rivera 350.1.13.10 [place] [phone] [address] 2020-02-24 2020-02-24 Outpatient R ARTUR [facility] [id number] Univers 13:00:00 13:00:00 [facility] 2020-02-01 2020-02-01 Outpatient R [facility] [id number] Univers 13:00:00 13:00:00 ity [facility] 2020-01-30 2020-01-30 Office Alexandria Whitmore [facility] 1.2.110.879 [id number] Univers 14:47:20 15:35:45 Visit Skyler [place] 350.1.13.10 [place] [phone] [address] 2020-01-30 2020-01-30 Outpatient R ALEXANDRIA WHITMORE [facility] [id number] Univers 15:00:00 15:00:00 [facility] 2020-01-10 2020-01-10 Office [facility] [id number] Univers 14:35:02 16:02:32 Visit Rolan [place] 350.1.13.10 [place] [phone] [address] 2020-01-10 2020-01-10 [facility] [id number] Univers 14:45:00 14:45:00 [facility] 2019-12-15 2019-12-15 Outpatient R HERMELINDO [facility] [id number] Univers 10:45:00 10:45:00 [facility] 2019-12-15 2019-12-15 Telephone Dre [facility] 1.2.352.882 [id number] Univers 00:00:00 00:00:00 Alena France [employer] 350.1.13.10 [facility] 4.2.7.2.686 Tawanda as MATERNAL [phone] Med ical & CHILD [address] [place] [address] 2019-11-30 2019-11-30 Outpatient R [facility] [id number] Univers 15:00:00 15:00:00 [facility] 2019-11-18 2019-11-18 Outpatient [facility] [id number] Univers 09:30:00 09:30:00 [facility] 2019-11-14 2019-11-14 Telephone Alexandria Whitmore [facility] 1.2.840.114 [id number] Univers 00:00:00 00:00:00 Cam Nicole 350.1.13.10 i [place] [phone] Wy dical nal [address] [facility] 2019-10-13 2019-10-13 Orders Doctor CAPUTO 1.2.840.114 [id number] Univers 00:00:00 00:00:00 Only Unassigned, JACQUE 350.1.13.[address] [facility] 4.2.7.2.686 Tawanda as [phone] [facility] [address] 2019-10-12 2019-10-12 Hospital Dalia Arreguin Yuval [facility] 1.2.840.11 [id number] Univers 12:44:00 23:59:00 Encounter Eeg, Sapna Pedi Neuro SPECIALTY 350.1. 13.10 it[place] of [place] [phone] [facility] [address] 2019-10-12 2019-10-12 Office Boris [facility] 1.2.840.114 [id number] Univers 12:44:33 13:44:33 Visit Dalia J SPECIALTY 350.1.13.10 it[place] of [place] [phone] [facility] [address] 2019-10-12 2019-10-12 Outpatient R BORIS [facility] [id number] Univers 13:00:00 13:00:00 DALIA ityoly [facility] 2019-10-07 2019-10-07 Office Alexandria Whitmore [facility] 1.2.291.379 [id number] Univers 12:46:26 13:32:19 Visit Skyler Rivera 350.1.13.10 [place] [phone] Wy dical nal [address] [place] [address] 2019-10-07 2019-10-07 Outpatient R ALEXANDRIA WHITMORE [facility] [id number] Univers 13:00:00 13:00:00 ity of [facility] 2019-10-07 2019-10-07 Orders Doctor CAPUTO 1.2.840.114 [id number] Univers 00:00:00 00:00:00 Only Unassigned, JACQUE 350.1.13.[address] [facility] 4.2.7.2.686 Tawanda as [phone] [address] 2019-10-06 2019-10-06 Office [facility] 1.2.840.114 [id number] Univers 14:55:54 17:13:05 Visit Alena Rivera 350.1.13.10 [place] [phone] Wy dical [facility] [address] [facility] 2019-10-06 2019-10-06 Outpatient [facility] [id number] Univers 15:00:00 15:00:00 ALENA antoine [facility] 2019-10-06 2019-10-06 Orders Doctor CAPUTO 1.2.840.114 [id number] Univers 00:00:00 00:00:00 Only Unassigned, JACQUE 350.1.13.[address] [facility] 4.2.7.2.686 [place]anda as [phone] [address] 2019-10-05 2019-10-05 Telephone [facility] 1.2.840.114 [id number] Univers 00:00:00 00:00:00 Rolan Rivera 350.1.13.10 i [place] [phone] Wy dical nal [address] [facility] 2019-09-28 2019-09-28 Outpatient R [facility] [id number] Univers 15:30:00 15:30:00 ity of [facility] 2019-09-15 2019-09-15 Outpatient R [facility] [id number] Univers 15:00:00 15:00:00 ROLAN ity of [facility] 2019-08-31 2019-08-31 Outpatient R [facility] [id number] Univers 15:00:00 15:00:00 ity of [facility] 2019-08-16 2019-08-16 Outpatient R ALEXANDRIA WHITMORE [facility] [id number] Univers 07:38:13 23:59:00 ity of [facility] 2019-08-16 2019-08-16 [facility] Alexandria Whitmore [facility] 1.2.840.114 [id number] Univers 07:38:00 23:59:00 Encounter Skyler Rivera 350.1.13.10 [place] of [place] [phone] [facility] [address] 2019-08-08 2019-08-08 Case Hermelindo [facility] 1.2.797.838 [id number] Univers 00:00:00 00:00:00 Management Rolan Rivera 350.1.13.10 [place] of [place] [phone] Wy dical nal [address] [place] [address] 2019-08-04 2019-08-04 Office Alexandria Whitmore [facility] 1.2.858.797 [id number] Univers 13:33:06 14:36:24 Visit Skyler Rivera 350.1.13.10 i [place] of [place] [phone] Wy dical nal [address] [place] [address] 2019-08-04 2019-08-04 Outpatient R ALEXANDRIA WHITMORE [facility] [id number] Univers 13:30:00 13:30:00 ity of [facility] 2019-08-04 2019-08-04 Orders Doctor PATITO 1.2.840.114 [id number] Univers 00:00:00 00:00:00 Only Unassigned, JACQUE 350.1.13.[address] [facility] 4.2.7.2.686 [place]anda as [phone] [facility] [address] 2019-07-19 2019-07-19 Telephone Alexandria Whitmore [facility] 1.2.840.114 [id number] Univers 00:00:00 00:00:00 Skyler Rivera 350.1.13.10 i [place] [phone] Wy dical nal [address] [facility] 2019-06-16 2019-06-16 Ride Mechanic 2, Adc Lab [facility] 1.2.840.114 [id number] Univers 11:24:51 11:39:51 Visit Alena Erickson 350.1.13. 10 [place] of [place] [phone] Wy dical nal [address] [facility] 2019-06-16 2019-06-16 Outpatient R DRE [facility] [id number] Univers 11:15:00 11:15:00 ALENA antoine [facility] 2019-06-16 2019-06-16 Orders Doctor PATITO 1.2.840.114 [id number] Univers 00:00:00 00:00:00 Only Unassigned, JACQUE 350.1.13.10 ity of [facility] 4.2.7.2.686 [place]anda as [phone] [address] 2019-06-16 2019-06-16 Telephone Dre AKMARY 1.2.696.063 [id number] Univers 00:00:00 00:00:00 Alena Román Nicole 350.1.13.10 [place] [phone] Wy dical nal [address] [facility] 2019-06-15 2019-06-15 Outpatient R HERMELINDO [facility] [id number] Univers 10:45:00 10:45:00 [facility] 2019-06-15 2019-06-15 Telemedici Hermelindo [facility] 1.2.840.114 [id number] Univers 08:26:10 08:56:10 ne Visit Rolan Rivera 350.1.13.10 [place] [phone] Wy dical nal [address] [facility] 2019-06-09 2019-06-09 Outpatient R HERMELINDO [facility] [id number] Univers 08:45:00 08:45:00 ROLAN antoine [facility] 2019-06-02 2019-06-02 Outpatient R HERMELINDO [facility] [id number] Univers 15:45:00 15:45:00 ROLAN antoine [facility] 2019-05-31 2019-05-31 Outpatient R [facility] [id number] Univers 13:45:00 13:45:00 ityoly [facility] 2019-05-23 2019-05-23 Office Dre [facility] 1.2.840.114 [id number] Univers 14:21:31 16:27:38 Visit Alena Rivera 350.1.13.10 [place] of [place] [phone] [facility] [address] [facility] 2019-05-23 2019-05-23 Outpatient [facility] [id number] Univers 14:30:00 14:30:00 ALENA ity of [facility] 2019-05-23 2019-05-23 [facility] 1.2.840.114 [id number] Univers 00:00:00 00:00:00 (Out) Alena Rivera 350.1.13.10 [place] [phone] [address] 2019-05-16 2019-05-16 Nurse Nurse, [facility] 1.2.840.114 [id number] Univers 15:19:14 15:52:21 Visit Alexandria Whitmore 350.1.13.10 it[place] of [place] [phone] [facility] [address] [facility] 2019-05-16 2019-05-16 Outpatient R ALEXANDRIA WHITMORE [facility] [id number] Univers 15:30:00 15:30:00 ity [facility] 2019-05-03 2019-05-03 Office [facility] 1.2. 840.114 [id number] Univers 13:12:12 14:43:58 Visit Demetrius Morgan [facility] 350.1.13.1 0 [place] [phone] [address] Office Building 2019-05-03 2019-05-03 Orders Doctor CAPUTO 1.2.840.114 [id number] Univers 00:00:00 00:00:00 Only Unassigned, JACQUE 350.1.13.[address] [facility] 4.2.7.2.686 Tawanda as [phone] [facility] [address] 2019-05-03 2019-05-03 Letter Urology, [facility] 1.2.840.114 [id number] Univers 00:00:00 00:00:00 (Out) Clc Bls Health 350.1.13.10 it y [place] [phone] [facility] Medical [address] Office Building 2019-03-22 2019-03-22 Office Urology, Sapna Pedi [facility] 1.2.840. 114 [id number] Univers 14:44:34 16:20:55 Visit Demetrius Morgan SPECIALTY 350.1.13 .10 [place] [phone] [facility] [address] 2018-12-01 2018-12-01 Telephone [facility] 1.2.840.114 [id number] Univers 00:00:00 00:00:00 Apryl Rivera 350.1.13.10 i ty of [place] [phone] Wy dic[address] 2018-11-30 2018-11-30 Telephone [facility] 1.2.840.114 [id number] Univers 00:00:00 00:00:00 Apryl Rivera 350.1.13.10 i [place] of [place] [phone] Wy dic[address] 2018-11-12 2018-11-12 Office [facility] 1.2.840.114 [id number] Univers 07:59:52 08:43:27 Visit Apryl Rivera 350.1.13.10 i [place] of [place] [phone] Wy dic[address] 2018-11-12 2018-11-12 Letter Ak Chin, [facility] 1.2.840.114 [id number] Univers 00:00:00 00:00:00 (Out) Apryl Rivera 350.1.13.10 i [place] [phone] Wy dical nal [address] [facility] 2018-11-11 2018-11-11 Nurse Nurse, [facility] 1.2.840.114 [id number] [facility] 08:24:16 08:54:22 Visit Alexandria Whitmore 350.1.13.10 it[place] of [place] [phone] Wy dical nal [address] [facility] 2018-11-11 2018-11-11 Orders Doctor PATITO 1.2.840.114 [id number] Univers 00:00:00 00:00:00 Only Unassigned, JACQUE 350.1.13.[address] [facility] 4.2.7.2.686 Tawanda as [phone] [address] 2018-10-07 2018-10-07 Office Karen Tamayo [facility] 1.2.840.1 [id number] [facility] 14:49:05 16:35:54 Visit Alena Erickson 350.1.13. 10 it[place] of [place] [phone] [facility] Results Test Description Test Time Test Comments Results Result Comments Source POCT MOLECULAR STREP 2022-08-11 16:32:49 Test Item Value Reference Range Interpretation Comme nts POCT Molecular Strep (test code = 22596-4) Negative Negative Lab Interpretation (test code = 83348-2) Normal [facility] URINALYSIS W/O SPECIFIC [id number] 20:36:00 Test Item Value Reference Range Interpretation [...] code = 3257) negative [facility] [id number] 20:36:00 Test Item Value Reference Range Interpretation [...] code = 3257) negative Negative - Negative [facility] [id number] 15:01:00 Test Item Value Reference Range Interpretation Comments POCT PREG (test code = 1605) Negative On board controls acceptable with C Yes Line (test code = 3574) POCT PREG LOT # (test code = 3575) POCT PREG TEST DATE (test code = 3576) [facility] [id number] 15:01:00 Test Item Value Reference Range Interpretation Comments POCT PREG (test code = 1605) Negative On board controls acceptable with C Yes Line (test code = 3574) POCT PREG LOT # (test code = 3575) POCT PREG TEST DATE (test code = 3576) [facility] [id number] 15:01:00 Test Item Value Reference Range Interpretation Comments POCT PREG (test code = 1605) Negative On board controls acceptable with C Yes Line (test code = 3574) POCT PREG LOT # (test code = 3575) POCT PREG TEST DATE (test code = 3576) [facility] 02:46:43 Test Item Value Reference Range Interpretation Comments ALCOHOL (test code = <10 mg/dL 2523632033) HAZEL (test code = HAZEL) <10 Hclqjqup05-721 Toxic>100 Depression of BOARD STACKER>400 Fatalities Reported [facility] [id number] 02:44:00 Test Item Value Reference Range Interpretation Comments POCT PREG (test code = 1605) negative On board controls acceptable with present C Line (test code = 3574) POCT PREG LOT # (test code = 3575) [id number] POCT PREG TEST DATE (test 2022-04-22 code = 3576) Lab Interpretation (test code = Normal 68990-3) [facility]. METABOLIC PANEL (49341)2021-01-06 02:40:21 Test Item Value Reference Range Interpretation Comments NA (test code = 139 mmol/L 135-145 7724019744) K (test code = 3.8 mmol/L 3.5-5.0 8726309976) CL (test code = 114 mmol/L 98-108 H 1536734155) CO2 TOTAL (test code = 20 mmol/L 23-31 L 5431654339) AGAP (test code = 2-16 9519973635) BUN (test code = 13 mg/dL 7-23 0772703698) GLUCOSE (test code = 86 mg/dL 70-110 7859453883) CREATININE (test code = 0.53 mg/dL 0.50-1.04 5962744768) TOTAL BILI (test code = 0.4 mg/dL 0.1-1.7 7808070476) CALCIUM (test code = 7.8 mg/dL 8.6-10.6 L 2504728576) T PROTEIN (test code = 5.6 g/dL 6.3-8.2 L 5885030960) ALBUMIN (test code = 3.1 g/dL 3.5-5.0 L 7444835877) ALK PHOS (test code = 36 U/L 34-122 4852726687) ALTv (test code = 14 U/L 5-35 1742-6) AST(SGOT) (test code = 26 U/L 13-40 1692305350) eGFR (test code = mL/min/1.73m2 3239223884) HAZEL (test code = HAZEL) Association of [...] tests). Lab Interpretation Abnormal (test code = 47509-8) [facility] Whole [id number] 02:30:07 Test Item Value Reference Range Interpretation Comments LACTIC ACID (test code = 1.53 mmol/L 0.50-2.20 1816421991) Lab Interpretation (test code = Normal 03035-1) [facility] WITH [id number] 02:20:01 Test Item Value Reference Range Interpretation Comments WBC (test code = See_Comment [Automated 3325-2) message] The sy stem which generated this result transmitted reference range : 4.50 - 13.50 10*3/?L. The reference range was not used to interpret this result as normal/abnormal . RBC (test code = See_Comment [Automated 829-8) message] The sy stem which generated this [...] RDW-SD (test code = 45.0 fL 38.5-49.0 14438-4) RDW-CV (test code = 14.8 % 11.5-14.0 H 788-0) PLT (test code = See_Comment [Automated 777-3) message] The sy stem which generated this result transmitted reference range : 135 - 361 10*3/ ?L. The reference r ilsa was not used to interpret this result as normal/abnormal . MPV (test code = 10.5 fL 9.4-13.3 96111-6) NRBC/100 WBC (test See_Comment [Automat ed code = 6007267572) message] The system which generated this result transmitted reference range : 0.0 - 10.0 /100 WBCs. The refer ence range was not u sed to interpret th is result as normal/abnormal . NRBC x10^3 (test code <0.01 See_Comment [Auto mated = 7427499765) message] The s ystem which generated this result transmitted reference range : 10*3/?L. The reference range was not used to interpret this result as normal/abnormal . GRAN MAT (NEUT) % 45.6 % (test code = 770-8) IMM GRAN % (test code 0.20 % = 3824094774) LYMPH % (test code = 42.0 % 736-9) MONO % (test code = 9.9 % 5905-5) EOS % (test code = 2.1 % 713-8) BASO % (test code = 0.2 % 706-2) GRAN MAT x10^3(ANC) 3.68 10*3/uL 1.50-10.30 (test code = 9293077601) IMM GRAN x10^3 (test <0.03 0.00-0.06 code = 7346563694) LYMPH x10^3 (test code 3.39 10*3/uL 0.70-7.40 = 731-0) MONO x10^3 (test code 0.80 10*3/uL 0.00-0.50 H = 742-7) EOS x10^3 (test code = 0.17 10*3/uL 0.00-0.40 711-2) BASO x10^3 (test code <0.03 0.00-0.10 = 704-7) Lab Interpretation Abnormal (test code = 87234-4) [facility] RAPID STREP SCREEN FOR GROUP [id number] 19:24:00 Test Item Value Reference Range Interpretation Comments POCT GP A STREP (test code = negative Negative - Negative 27238-1) [facility] RAPID STREP SCREEN FOR GROUP [id number] 19:24:00 Test Item Value Reference Range Interpretation Comments POCT GP A STREP (test code = negative Negative - Negative 54395-2) [facility] [id number] 00:00:00 Test Item Value Reference Range Interpretation Comments IMP (test code = Electroencephalogram IMP) Report NAME: Romy BernsteinAGE: 19 Year(s) 6 Month(s)DATE OF EE10/12/2019PROCEDURE: ?EEG ? ? EEG#: [id number] PHYSICIAN: Dalia Arreguin MDLOCATION: ?[facility] [place]INICAL DIAGNOSIS: Seizure vs PNESPERTINENT MEDICATIONS: ?N/A [...] 44m39s Lab Interpretation Normal (test code = 03436-5) [facility] ULTRASOUND BREAST LIMITED [id number] 13:32:53HISTORY: 2 palpable masses in the left [...] patient and hermother. ACR classification: Category II. [facility], Radiant Results Inft User - [...] with the patient and hermother.ACR classification: Category II.[facility]/O SPECIFIC GRAVITY 2019-08-04 19:35:00 Test [...] code = 3257) 4+ Negative - Negative [facility] W/O SPECIFIC [id number] 19:35:00 Test Item Value Reference Range Interpretation [...] code = 3257) 4+ Negative - Negative [facility] [id number] 18:57:00 Test Item Value Reference Range Interpretation Comments POCT PREG (test code = 1605) Negative On board controls acceptable with C Yes Line (test code = 3574) POCT PREG LOT # (test code = 3575) POCT PREG TEST DATE (test code = 3576) [facility] [id number] 18:57:00 Test Item Value Reference Range Interpretation Comments POCT PREG (test code = 1605) Negative On board controls acceptable with C Yes Line (test code = 3574) POCT PREG LOT # (test code = 3575) POCT PREG TEST DATE (test code = 3576) [facility] [id number] 22:13:00 Test Item Value Reference Range Interpretation Comments URINE CULTURE (test > 100,000 CFU/mL mixed code = 630-4) aerobic organisms - suggests endogenous microbial contamination [facility] [id number] 22:13:00 Test Item Value Reference Range Interpretation Comments URINE CULTURE (test > 100,000 CFU/mL mixed code = 630-4) aerobic organisms - suggests endogenous microbial contamination [facility]
[2022-08-21] MEDS ORDERED: ONDANSETRON 4 MG (ODT) TAB ONE (10:27)
[2022-08-21 10:54] LABS: Absolute Lymphocytes (CBC) 1.1 K/uL (0.7-4.9); Hematocrit 42.8 % (36.0-45.0); Lymphocytes % 5.7 % (15.3-44.8); MCV 84.8 fL (80-100); MPV 6.9 fL (7.6-11.3); RBC Red Blood Cell Count 5.05 M/uL (3.86-4.86)
[2022-08-21] MEDS ORDERED: ONDANSETRON 4 MG/2 ML VIAL ONE (11:11)
[2022-08-21] MEDS ORDERED: FAMOTIDINE 20 MG/2 ML VIAL IV ONE (11:12)
[2022-08-21] MEDS ORDERED: NA CHLORIDE 0.9% 1,000 ML ONE ×2 (11:12→13:39)
[2022-08-21 11:15] LABS: Albumin 3.5 g/dL (3.4-5.0); Bilirubin Total 0.3 mg/dL (0.2-1.0); Protein, Total 7.2 g/dL (6.4-8.2)
[2022-08-21 11:16] LABS: Potassium 4.1 mEq/L (3.5-5.1)
[2022-08-21 12:13] LABS: White Blood Cell Scan NEUTROPHILIA (OK)
[2022-08-21 12:14] LABS: Blood Morphology Comment NOT SEEN (NOT SEEN); Platelet Estimate ADEQ
[2022-08-21 13:10] LABS: Specific Gravity 1.016 (1.005-1.030)
[2022-08-21 13:12] LABS: Specific Gravity 1.016 (1.005-1.030); Urine Bacteria None Seen /HPF (<20); Urine Bilirubin NEGATIVE (Negative); Urine Blood 3+ (OVER) (Negative); Urine Clarity Clear (Clear); Urine Color Colorless (Yellow); Urine Glucose NEGATIVE (Negative); Urine Mucus Slight /HPF (None Seen); Urine Protein NEGATIVE (Negative); Urine RBC >50 /HPF (None Seen); Urine Urobilinogen Normal (Normal)
--- NOTE | 2022-08-21 14:20 | EDPHYS ---
Physician Documentation [facility] Name: Romy Bernstein Age: 22 yrs Sex: Female : 2000 Arrival Date: 08/21/2022 Time: 10:04 Bed Treatment Private MD: ED Physician Warren Guerra HPI: 08/21 10:41 This 22 yrs old Female presents to ER via Ambulatory with complaints of snw Abdominal Pain, Vomiting/Diarrhea. 10:41 The patient presents with abdominal pain in the left upper quadrant, in the left lower snw quadrant. Onset: The symptoms/episode began/occurred suddenly, this morning. The symptoms do not radiate. Associated signs and symptoms: Pertinent positives: nausea, vomiting, and diarrhea. The symptoms are described as crampy. Severity of pain: At its worst the pain was moderate. It is unknown whether or not the patient has had similar symptoms in the past. The patient has not recently seen a physician. 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 - Social history:: Smoking status: Patient denies any tobacco usage or history of. ROS: 10:32 Constitutional: Negative for fever, chills, and weight loss, Eyes: Negative for injury, snw pain, redness, and discharge, ENT: Negative for injury, pain, and discharge, Neck: Negative for injury, pain, and swelling, Cardiovascular: Negative for chest pain, palpitations, and edema, Respiratory: Negative for shortness of breath, cough, wheezing, and pleuritic chest pain, Abdomen/GI: Negative for abdominal pain, nausea, vomiting, diarrhea, and constipation, Back: Negative for injury and pain, : Negative for injury, bleeding, discharge, and swelling, MS/Extremity: Negative for injury and deformity, Skin: Negative for injury, rash, and discoloration, Neuro: Negative for headache, weakness, numbness, tingling, and seizure, Psych: Negative for depression, anxiety, suicide ideation, homicidal ideation, and hallucinations. 10:32 Abdomen/GI: Positive for nausea, vomiting, and diarrhea, abdominal cramps, of the left upper quadrant and left lower quadrant. Exam: 10:32 Constitutional: This is a well developed, well nourished patient who is awake, alert, snw and in no acute distress. Head/Face: Normocephalic, atraumatic. Eyes: Pupils equal round and reactive to light, extra-ocular motions intact. Lids and lashes normal. Conjunctiva and sclera are non-icteric and not injected. Cornea within normal limits. Periorbital areas with no swelling, redness, or edema. ENT: Nares patent. No nasal discharge, no septal abnormalities noted. Tympanic membranes are normal and external auditory canals are clear. Oropharynx with no redness, swelling, or masses, exudates, or evidence of obstruction, uvula midline. Mucous membranes moist. Neck: Trachea midline, no thyromegaly or masses palpated, and no cervical lymphadenopathy. Supple, full range of motion without nuchal rigidity, or vertebral point tenderness. No Meningismus. Chest/axilla: Normal chest wall appearance and motion. Nontender with no deformity. No lesions are appreciated. Cardiovascular: Regular rate and rhythm with a normal S1 and S2. No gallops, murmurs, or rubs. Normal PMI, no JVD. No pulse deficits. Respiratory: Lungs have equal breath sounds bilaterally, clear to auscultation and percussion. No rales, rhonchi or wheezes noted. No increased work of breathing, no retractions or nasal flaring. Abdomen/GI: Soft, non-tender, with normal bowel sounds. No distension or tympany. No guarding or rebound. No evidence of tenderness throughout. Back: No spinal tenderness. No costovertebral tenderness. Full range of motion. Skin: Warm, dry with normal turgor. Normal color with no rashes, no lesions, and no evidence of cellulitis. MS/ Extremity: Pulses equal, no cyanosis. Neurovascular intact. Full, normal range of motion. Neuro: Awake and alert, GCS 15, oriented to person, place, time, and situation. Cranial nerves II-XII grossly intact. Motor strength 5/5 in all extremities. Sensory grossly intact. Cerebellar exam normal. Normal gait. Psych: Awake, alert, with orientation to person, place and time. Behavior, mood, and affect are within normal limits. Vital Signs: 10:13 BP 138 / 83; Pulse 88; Resp 16; Temp 98.4; Pulse Ox 100% ; Weight 78.47 kg; Height 5 mb9 ft. 3 in. ; Pain 9/10; 10:13 Body Mass Index 30.65 (78.47 kg, 160.02 cm) mb9 10:13 Pain Scale: Adult mb9 MDM: 10:21 Patient medically screened. snw 14:21 Differential diagnosis: bowel obstruction, diverticulitis, gastritis, gastroesophageal snw reflux disease, non-specific abd pain, urinary tract infection. Data reviewed: vital signs, nurses notes, lab test result(s). I considered the following discharge prescriptions or medication management in the emergency department Medications were administered in the Emergency Department. See MAR. Counseling: I had a detailed discussion with the patient and/or guardian regarding: the historical points, exam findings, and any diagnostic results supporting the discharge/admit diagnosis, lab results, the need for outpatient follow up, for definitive care, to return to the emergency department if symptoms worsen or persist or if there are any questions or concerns that arise at home. Response to treatment: the patient's symptoms have markedly improved after treatment, "I feel so much better". Special discussion: Based on the patient's Hx, exam, and Dx evaluation, there is no indication for emergent surgery or inpatient Tx. It is understood by the patient/guardian that if the Sx's persist or worsen they need to return immediately for re-evaluation. I have referred the patient to see his PCP for further evaluation of high blood pressure. Based on the history and exam findings, there is no indication for further emergent testing or inpatient evaluation. I discussed with the patient/guardian the need to see the primary care provider for further evaluation of the symptoms. 08/21 10:21 Order name: CBC with Diff; Complete Time: 12:19 snw 08/21 10:21 Order name: CMP; Complete Time: 11:18 snw 08/21 10:21 Order name: Lipase; Complete Time: 11:18 snw 08/21 10:21 Order name: Test, Urine; Complete Time: 13:11 snw 08/21 10:21 Order name: Urinalysis w/ reflexes; Complete Time: 13:20 snw 08/21 10:57 Order name: CBC Smear Scan; Complete Time: 12:19 EDMS 08/21 10:21 Order name: IV Saline Lock; Complete Time: 10:49 snw 08/21 10:21 Order name: Labs collected and sent; Complete Time: 10:49 snw Administered Medications: 10:25 Drug: Ondansetron PO 4 mg Route: PO; iw 10:25 Drug: Ondansetron PO 4 mg Route: PO; iw 11:09 Drug: NS 0.9% IV 1000 ml Route: IV; Rate: 1 bolus; Site: right antecubital; iw 11:09 Drug: Famotidine IVP 20 mg Route: IVP; Site: right antecubital; iw 13:36 Drug: NS 0.9% IV 1000 ml Route: IV; Rate: 1 bolus; Site: right antecubital; iw Disposition: 17:41 Co-signature as Attending Physician, Warren BEST was immediately available on-site ms3 in the Emergency Department for consultation in the care of the patient. Disposition Summary: 08/21/22 14:20 Discharge Ordered Location: Home snw Condition: Stable snw Diagnosis - Nausea with vomiting, unspecified snw - Diarrhea, unspecified snw - Dehydration snw Followup: snw - With: Emergency Department - When: As needed - Reason: Worsening of condition Followup: snw - With: Private Physician - When: 2 - 3 days - Reason: Recheck today's complaints, Continuance of care, Re-evaluation by your physician Discharge Instructions: - Discharge Summary Sheet snw - Food Choices to Help Relieve Diarrhea, Adult snw - Dehydration, Adult snw - Diarrhea, Adult snw - Nausea and Vomiting, Adult snw - Rehydration, Adult snw Forms: - Work release form snw - Medication Reconciliation Form snw - Thank You Letter snw - Antibiotic Education snw - Prescription Opioid Use snw Prescriptions: - promethazine 25 mg Oral Tablet - take 1 tablet by ORAL route every 6 hours As needed; 20 tablet; Refills: 0, snw Product Selection Permitted Signatures: Dispatcher [employer] EDCT Pamela Dee FNP-C CARE CONNECTOR-Csnw Arlyn Barlow RN RN iw Warren Guerra DO DO ms3 Florecita Ruano, RN RN mb9
--- NOTE | 2022-08-21 14:20 | ER ---
Nurse's Notes [facility] Name: Romy Bernstein Age: 22 yrs Sex: Female : 2000 Arrival Date: 08/21/2022 Time: 10:04 Bed Treatment Private MD: Diagnosis: Nausea with vomiting, unspecified;Diarrhea, unspecified;Dehydration Presentation: 08/21 10:13 Chief complaint: Patient states: "I've been up since 5am this morning vomiting and mb9 having diarrhea. Nothing is helping. My stomach feels like it's on fire and can't keep anything down.". Coronavirus screen: Vaccine status: Patient reports receiving the 2nd dose of the covid vaccine. Ebola Screen: No symptoms or risks identified at this time. Initial Sepsis Screen: Does the patient meet any 2 criteria? No. Patient's initial sepsis screen is negative. Does the patient have a suspected source of infection? No. Patient's initial sepsis screen is negative. Risk Assessment: Do you want to hurt yourself or someone else? Patient reports no desire to harm self or others. Onset of symptoms was August 21, 2022. 10:13 Method Of Arrival: Ambulatory [facility] 10:13 Acuity: SERA 3 mb9 Triage Assessment: 10:15 General: Appears uncomfortable, Behavior is cooperative. Pain: Complains of pain in mb9 abdomen Pain currently is 9 out of 10 on a pain scale. Quality of pain is described as burning, Pain began suddenly, Is continuous. Neuro: Alexis Agitation-Sedation Scale (RASS): 0 - Alert and Calm Level of Consciousness is awake, alert, obeys commands, Oriented to person, place, time, situation, Appropriate for age. Cardiovascular: Patient's skin is warm and dry. Respiratory: Airway is patent Respiratory effort is even, unlabored, Respiratory pattern is regular, symmetrical. GI: Abdomen is flat, non-distended, Reports diarrhea, nausea, vomiting. : No signs and/or symptoms were reported regarding the genitourinary system. Derm: Skin is pink, warm \\T\\ dry. Musculoskeletal: Range of motion: intact in all extremities. 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 - Social history:: Smoking status: Patient denies any tobacco usage or history of. Screenin:50 [facility] ED Fall Risk Assessment (Adult) History of falling in the last 3 months, iw including since admission. Abuse screen: Denies threats or abuse. Denies injuries from another. Nutritional screening: No deficits noted. Tuberculosis screening: No symptoms or risk factors identified. Assessment: 10:17 Reassessment: see triage assessment. mb9 10:49 General: Appears in no apparent distress. Behavior is calm, cooperative. Pain: iw Complains of pain in abdomen. Neuro: Level of Consciousness is awake, alert, obeys commands, Oriented to person, place, time, situation. Cardiovascular: Patient's skin is warm and dry. Respiratory: Respiratory effort is even, unlabored, Respiratory pattern is regular. GI: Abdomen is flat, Bowel sounds present X 4 quads. Abd is soft X 4 quads Reports lower abdominal pain, upper abdominal pain, diarrhea, nausea. Derm: Skin is intact, is healthy with good turgor. 12:32 Reassessment: Patient appears in no apparent distress at this time. Patient and/or iw family updated on plan of care and expected duration. Pain level reassessed. Patient is alert, oriented x 3, equal unlabored respirations, skin warm/dry/pink. Vital Signs: 10:13 BP 138 / 83; Pulse 88; Resp 16; Temp 98.4; Pulse Ox 100% ; Weight 78.47 kg; Height 5 mb9 ft. 3 in. ; Pain 9/10; 10:13 Body Mass Index 30.65 (78.47 kg, 160.02 cm) mb9 10:13 Pain Scale: Adult mb9 ED Course: 10:07 Patient arrived in ED. mr 10:15 Triage completed. mb9 10:15 Arm band placed on. mb9 10:18 [facility] Dee [facility]C [facility] snw 10:18 Warren Guerra DO is Attending Physician. snw 10:49 Arlyn Barlow, RN is Primary Nurse. iw 10:49 Inserted saline lock: 22 gauge in right antecubital area, using aseptic technique. iw Blood collected. Administered Medications: 10:25 Drug: Ondansetron PO 4 mg Route: PO; iw 10:25 Drug: Ondansetron PO 4 mg Route: PO; iw 11:09 Drug: NS 0.9% IV 1000 ml Route: IV; Rate: 1 bolus; Site: right antecubital; iw 11:09 Drug: Famotidine IVP 20 mg Route: IVP; Site: right antecubital; iw 13:36 Drug: NS 0.9% IV 1000 ml Route: IV; Rate: 1 bolus; Site: right antecubital; iw Medication: 10:15 VIS not applicable for this client. mb9 Outcome: 14:20 Discharge ordered by . snerica 15:14 Patient left the ED. iw Signatures: Pamela Dee, INFECTION CONTROL MANAGER-C INFECTION CONTROL MANAGER-Csnw Florecita Man Irene, RN RN iw Breneman, Mary Beth, RN RN mb9
[2022-08-21 15:48] VITALS: BP 138/83; TEMP 98.4; O2SAT 100
== END 2022-08-21 15:14 | disposition home or self-care (01) ==
LOC: ER 10:04
DX: E86.0 Dehydration (principal); R19.7 Diarrhea, unspecified; Z88.8 Allergy status to other drugs, medicaments and biological substances
CPT/HCPCS: 85025; 81001; 36415; 81025; 83690; 80053; 96374; 99284; Q0162; J2405; J7030 ×2

== ENCOUNTER 2022-12-03 18:57 | Emergency (ER) | payer OTHER ==
--- OUTSIDE RECORDS SUMMARY | 2022-12-03 20:14 | XMS REPORT | Continuity of Care Document ---
:2000 Author Organization [facility] t Address [address] [place] [address] Care Team Providers Name Role Phone PCP, PATIENT DOES NOT HAVE A Primary Care Physician UnavailALEXANDRIA Noriega Attending Clinician Unavailable ROLAN CASAREZ Attending Clinician Unavailable GREGORIO DELCID Attending Clinician Unavailable Leslie Carreon Attending Clinician Unavailable Corrine Llanos RN Attending Clinician Unavailable Rolan Casarez PA-C Attending Clinician Lab, [facility] Attending Clinician Unavailable Alexandria Whitmore MD Attending Clinician MANNY CARMEN Attending Clinician Unavailable Manny Marley Attending Clinician Unknown, Attending Attending Clinician Unavailable Doctor Unassigned, [place] Attending Clinician Unavailable BROOKLYN GARDUNO Attending Clinician Unavailable Brooklyn Garduno MD Attending Clinician Liu Carlton Attending Clinician Unavailable HAYLEY CASTILLO Attending Clinician Unavailable 2, [facility] Attending Clinician Unavailable KAREN TAMAYO Attending Clinician Unavailable Alena Erickson MD Attending Clinician Roma Adame NP Attending Clinician EMELY CANALES Attending Clinician Unavailable Chinmay Aly DO Attending Clinician Nurse, Tony Quevedo Attending Clinician Unavailable ALENA ERICKSON Attending Clinician Unavailable Karen Robledo Attending Clinician Dalia Arreguin MD Attending Clinician Eeg, Sapna Quevedo Neuro Attending Clinician Unavailable DALIA ARREGUIN Attending Clinician Unavailable Nurse, [facility] Attending Clinician Unavailable Urology, Clc Bls Pedi Attending Clinician Unavailable Eddie FULLER, Demetrius Attending Clinician Urology, Sapna Lazarusi Attending Clinician Unavailable Cesar FULLER, Apryl Attending Clinician ROLAN CASAREZ Admitting Clinician Unavailable ALEXANDRIA WHITMORE Admitting Clinician Unavailable Payers Payer Name Policy Type Policy Number Effective Date Expiration Date [facility] [id number] 2016 CHOICE MEDICAID 00:00:00 FORMERLY [facility] [id number] 2022 00:00:00 [facility] [facility] [id number] 2022 00:00:00 MEDICAID [facility] [id number] 2021 2022 00:00:00 00:00:00 Problems Condition Condition Condition Status Onset Resolution Last Treating Co mments Source Name Details Category Date Date Treatment Clinician Date Nexplanon Nexplanon Disease Active Uni vers in place in place 5-14 ity of 00:00: [place] 00 Medical Branch Burning Burning Disease Active 2020- Univers with with 5-14 ity of urination urination 00:00: [facility] Medical Branch Chronic Chronic Disease Active Univers nonintract nonintract 3-13 it y of able able 00:00: [place] headache, headache, 00 Medi milagros unspecifie unspecifie Br anch d headache d headache type type Obesity Obesity Disease Active Univers peds (BMI peds (BMI 7-19 ity of >=95 >=95 00:00: [place] percentile percentile 00 Me dical ) ) [...] Univers gain gain 7-18 ity of 00:00: [address] Migraine Migraine Disease Active Unive rs without without 1-08 ity of aura and aura and 00:00: [place] without without 00 Medical status status Branch migrainosu migrainosu s, not s, not intractabl intractabl e e Family Family Disease Active 2017-03 Univers history of history of 0-24 it y of breast breast 00:00: [place] cancer cancer [address] [facility] Depo-Prove Depo-Prove Disease Active 2017-03 U nivers ra ra 0-24 [place] thea status 00 Me dical Branch 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 0-24 [place] of [place] [address] [facility] Asthma Asthma Disease Active Univers ity of [facility] Allergic Allergic Disease Active Unive rs rhinitis rhinitis ity of [facility] Family Family Disease Active Univers history of history of it y of familial familial [place] hyperchole hyperchole Me dical sterolemia sterolemia Br anch Allergies, Adverse Reactions, Alerts Allergy Allergy Status Severity Reaction(s) Onset Inactive Treating Comm ents Source Name Type Date Date Clinician LEVETIRA DRUG Active Other-Cmnt 2021-03 Univ ers CETAM INGREDI -11 ity of 00:00: [place] 00 Medical Branch [...] High Swelling 2011-03 Univer s LIZABETH INGREDI 04-05 ity of 00:00: [place] [address] [facility] Social History Social Habit Start Date Stop Date Quantity Comments Source History of tobacco Passive smoker Un iversity of use [facility] Gender identity Universit y of [facility] intake 2022-11-19 2022-11-19 Current University of 00:00:00 00:00:00 [facility] [place] (finding) Exposure to 2022-08-01 2022-08-11 Not sure University of SARS-CoV-2 (event) 00:00:00 11:13:00 [facility] History of Social 2022-08-11 2022-08-11 Univers ity of function 00:00:00 00:00:00 [facility] Tobacco use and 2022-01-02 2022-01-02 Smokeless Universit y of exposure 00:00:00 00:00:[address] tobacco non-user [facility] Sex Assigned At 2000 2002 Universit y of 00:00:00 00:00:00 [facility] Smoking Status Start Date Stop Date Source Never smoked tobacco [facility] Medications Ordered Filled Start Stop Current Ordering Indication Dosage Frequency Signature Comments Components Source Medication Medication Date Date Medication? Clinician (SIG) Name Name ofloxacin 2022- No [id number] 5[drp] Place 5 Univers 0.3 % otic 08-11 Drops in ity of drops 00:00: 04:59 right ear [place] 00 :00 in the Medical morning Branch and 5 Drops in the evening. Do all this for 7 days. No known 2021-03 No No known Unive rs medications 1-16 medication it y of 13:07: [address] No known 2021-03 No No known Unive rs medications 1-16 medication it y of 13:07: [address] No known 2021-03 No No known Unive rs medications 1-16 medication it y of 13:07: [address] No known 2021-03 No No known Unive rs medications 1-16 medication it y of 13:07: [address] No known 2021-03 No No known Unive rs medications 1-16 medication it y of 13:07: [address] No known 2021-03 No No known Unive rs medications 1-16 medication it y of 13:07: [address] etonogestre 2021-03- No [id number] 68mg Univers L 04-02 ity of (NEXPLANON) 16:15: 15:23 [place] implant 68 00 :00 [facility] etonogestre 2021-03- No [id number] 68mg 68 mg, Univers L 04-02 Subdermal, ity of (NEXPLANON) 16:15: 15:23 ONCE NOW, [place] implant 68 00 :00 1 dose, On Med ical mg [facility] 01/31/22 at 1015, Routine
Use approved by: RECREATION THERAPIST etonogestre 2021-03- No [id number] 68mg Univers L 04-02 ity of (NEXPLANON) 16:15: 15:23 [place] implant 68 00 :00 [facility] etonogestre 2021-03- No [id number] 68mg 68 mg, Univers L 04-02 Subdermal, ity of (NEXPLANON) 16:15: 15:23 ONCE NOW, [place] implant 68 00 :00 1 dose, On Med ical mg [facility] 01/31/22 at 1015, Routine
Use approved by: RECREATION THERAPIST etonogestre 2021-03- No [id number] 68mg Univers L 04-02 ity of (NEXPLANON) 16:15: 15:23 [place] implant 68 00 :00 Medical mg Branch etonogestre 2021-03- No [id number] 68mg 68 mg, Univers L 04-02 Subdermal, ity of (NEXPLANON) 16:15: 15:23 ONCE NOW, [place] implant 68 00 :00 1 dose, On Med ical mg [facility] Branch 01/31/22 at 1015, Routine
Use approved by: RECREATION THERAPIST No known 2021-03 No No known Unive rs medications 1-11 medication it y of 08:48: [address] No known 2021-03 No No known Unive rs medications -11 medication it y of 08:48: [address] No known 2021-03 No No known Unive rs medications 0-13 medication it y of 09:58: [address] No known 2021-03 No No known Unive rs medications 0-13 medication it y of 09:58: [address] No known 2021-03 No No known Unive rs medications 0-13 medication it y of 09:58: [address] No known 2021-03 No No known Unive rs medications 0-13 medication it y of 09:58: [address] calcium 2020-03- No 1000mg 1,000 mg, Un dante chloride 0-06 01-17 Intravenou ity of 100 mg/mL 04:30: 03:55 [...] Univers medications 0-16 ity of 23:25: [address] No known 2020-03 No Univers medications 0-16 ity of 23:25: [address] No known 2020-03 No No known Unive rs medications 0-16 medication it y of 23:25: s [address] ciprofloxac 2020-03- No [id number] 250mg Take 1 Univers in HCl 250 0-16 10-20 tablet by ity of mg tablet 00:00: 04:59 [place] 2 [place] :[place] (two) Medical times [place] daily for 3 days. fluticasone Yes [id number] 1{spray Use 1 Univers propionate 1-11 } [place] in ity o f 50 00:00: each [place] mcg/actuati 00 nostril Medic al on nasal daily. Branch spray fluticasone 0 Yes [id number] 1{spray Use 1 Univers propionate 1-11 } [place] in ity o f 50 00:00: each [place] mcg/actuati 00 nostril Medic al on nasal daily. Branch spray fluticasone 2020-0 Yes [id number] 1{spray Use 1 Univers propionate 1-11 } [place] in ity o f 50 00:00: each [place] mcg/actuati 00 nostril Medic al on nasal daily. Branch spray fluticasone 0 Yes [id number] 1{spray Use 1 Univers propionate 1-11 } [place] in ity o f 50 00:00: each [place] mcg/actuati 00 nostril Medic al on nasal daily. Branch spray fluticasone Yes [id number] 1{spray Use 1 Univers propionate 1-11 } [place] in ity o f 50 00:00: each [place] mcg/actuati 00 nostril Medic al on nasal daily. Branch spray fluticasone Yes [id number] 1{spray Use 1 Univers propionate 1-11 } [place] in ity o f 50 00:00: each [place] mcg/actuati 00 nostril Medic al on nasal daily. Branch spray fluticasone 2020- No [id number] 1{spray Use 1 Univers propionate 1-11 10-16 } [place] in ity of 50 00:00: 00:00 each [place] mcg/actuati 00 :00 nostril Medic al on nasal daily. Branch spray ibuprofen 2019-03 Yes [id number] 600mg Take 1 U nivers 600 mg 2-04 tablet by ity of tablet 00:00: mouth [place] 00 every 8 Medical (eight) Branch hours as needed for Pain (scale 4-6) (headache) . cetirizine 2019-03 Yes [id number] 10mg Take 1 U nivers 10 mg 2-04 tablet by ity of tablet 00:00: mouth [place] 00 daily. Medical Branch fluticasone 2019-03 Yes [id number] 1{spray Use 1 Univers propionate 2-04 } [place] in ity o f 50 00:00: each [place] mcg/actuati 00 nostril Medic al on nasal daily. Branch spray ibuprofen 2019-03 Yes [id number] 600mg Take 1 U nivers 600 mg 2-04 tablet by ity of tablet 00:00: mouth [place] 00 every 8 Medical (eight) Branch hours as needed for Pain (scale 4-6) (headache) . cetirizine 2019-03 Yes [id number] 10mg Take 1 U nivers 10 mg 2-04 tablet by ity of tablet 00:00: mouth [place] 00 daily. Medical Branch fluticasone 2019-03 Yes [id number] 1{spray Use 1 Univers propionate 2-04 } [place] in ity o f 50 00:00: each [place] mcg/actuati 00 nostril Medic al on nasal daily. Branch spray cetirizine 2019-03 Yes [id number] 10mg Take 1 U nivers 10 mg 2-04 tablet by ity of tablet 00:00: mouth [place] 00 daily. [facility] Branch cetirizine 2019- Yes [id number] 10mg Take 1 U nivers 10 mg 2-04 tablet by ity of tablet 00:00: mouth [place] 00 daily. [facility] Branch cetirizine 2019-03 Yes [id number] 10mg Take 1 U nivers 10 mg 2-04 tablet by ity of tablet 00:00: mouth [place] 00 daily. [facility] Branch cetirizine 2019- Yes [id number] 10mg Take 1 U nivers 10 mg 2-04 tablet by ity of tablet 00:00: mouth [place] 00 daily. [facility] Branch cetirizine 2019-03 Yes [id number] 10mg Take 1 U nivers 10 mg 2-04 tablet by ity of tablet 00:00: mouth [place] 00 daily. [facility] Branch cetirizine 2019-03 Yes [id number] 10mg Take 1 U nivers 10 mg 2-04 tablet by ity of tablet 00:00: mouth [place] 00 daily. [facility] Branch cetirizine 2019-03 Yes [id number] 10mg Take 1 U nivers 10 mg 2-04 tablet by ity of tablet 00:00: mouth [place] 00 daily. [facility] Branch cetirizine 2019-03 Yes [id number] 10mg Take 1 U nivers 10 mg 2-04 tablet by ity of tablet 00:00: mouth [place] 00 daily. [facility] Branch cetirizine 2019-03 Yes [id number] 10mg Take 1 U nivers 10 mg 2-04 tablet by ity of tablet 00:00: mouth [place] 00 daily. [facility] Branch cetirizine 2019- Yes [id number] 10mg Take 1 U nivers 10 mg 2-04 tablet by ity of tablet 00:00: mouth [place] 00 daily. [facility] Branch cetirizine 2019-03 Yes [id number] 10mg Take 1 U nivers 10 mg 2-04 tablet by ity of tablet 00:00: mouth [place] 00 daily. [facility] Branch cetirizine 2019-03 Yes [id number] 10mg Take 1 U nivers 10 mg 2-04 tablet by ity of tablet 00:00: mouth [place] [address] [facility] cetirizine 2019-03- No [id number] 10mg Take 1 Univers 10 mg 2-04 10-16 tablet by ity of tablet 00:00: 00:00 mouth [place] 00 :00 daily. Medical Branch ibuprofen 2019-03- No [id number] 600mg Take 1 Univers 600 mg 2-06 21- tablet by ity of tablet 00:00: 00:00 mouth [place] 00 :00 every 8 Medical (eight) Branch hours as needed for Pain (scale 4-6) (headache) . fluticasone 2019-03- No [id number] 1{spray Use 1 Univers propionate 04-26 } [place] in ity of 50 00:00: 00:00 each [place] mcg/actuati 00 :00 nostril Medic al on nasal daily. Branch spray ibuprofen 2019-03- No [id number] 600mg Take 1 Univers 600 mg 2-04-02 tablet by ity of tablet 00:00: 00:00 mouth [place] 00 :00 every 8 Medical (eight) Branch hours as needed for Pain (scale 4-6) (headache) . fluticasone 2019-03- No [id number] 1{spray Use 1 Univers propionate 04-26 } [place] in ity of 50 00:00: 00:00 each [place] mcg/actuati 00 :00 nostril Medic al on nasal daily. Branch spray fluticasone 2019-03- No [id number] 1{spray Use 1 Univers propionate 04-26 } [place] in ity of 50 00:00: 00:00 each [place] mcg/actuati 00 :00 nostril Medic al on nasal daily. Branch spray ibuprofen 2019-03- No [id number] 600mg Take 1 Univers 600 mg 2-04-02 tablet by ity of tablet 00:00: 00:00 mouth [place] 00 :00 every 8 Medical (eight) Branch hours as needed for Pain (scale 4-6) (headache) . fluticasone 2019-03- No [id number] 1{spray Use 1 Univers propionate 04-26 } [place] in ity of 50 00:00: 00:00 each [place] mcg/actuati 00 :00 nostril Medic al on nasal daily. Branch spray ibuprofen 2019-03- No [id number] 600mg Take 1 Univers 600 mg 2-06 21-11 tablet by ity of tablet 00:00: 00:00 mouth [place] 00 :00 every 8 Medical (eight) Branch hours as needed for Pain (scale 4-6) (headache) . fluticasone 2019-03- No [id number] 1{spray Use 1 Univers propionate 04-26 } [place] in ity of 50 00:00: 00:00 each [place] mcg/actuati 00 :00 nostril Medic al on nasal daily. Branch spray ibuprofen 2019-03- No [id number] 600mg Take 1 Univers 600 mg 04-26 tablet by ity of tablet 00:00: 00:00 mouth [place] 00 :00 every 8 Medical (eight) Branch hours as needed for Pain (scale 4-6) (headache) . fluticasone 2019-03- No [id number] 1{spray Use 1 Univers propionate 04-26 } [place] in ity of 50 00:00: 00:00 each [place] mcg/actuati 00 :00 nostril Medic al on nasal daily. Branch spray ibuprofen 2019-03- No [id number] 600mg Take 1 Univers 600 mg 04-26 tablet by ity of tablet 00:00: 00:00 mouth [place] 00 :00 every 8 Medical (eight) Branch hours as needed for Pain (scale 4-6) (headache) . fluticasone 2019-03- No [id number] 1{spray Use 1 Univers propionate 04-26 } [place] in ity of 50 00:00: 00:00 each [...] 01/30/20 at 1645, Routine
Use approved by: RECREATION THERAPIST etonogestre 2019-03- No 68mg Unive rs L 03-31 ity of (NEXPLANON) 22:45: 21:43 [place] implant 68 00 :00 Medical mg Branch etonogestre 2019-03 2020- No 68mg 68 mg, Uni vers L 03-31 Subdermal, ity of (NEXPLANON) 22:45: 21:43 ONCE NOW, [place] implant 68 00 :00 1 dose, Medica l mg Mon Branch 01/30/20 at 1645, Routine
Use approved by: RECREATION THERAPIST topiramate 2020-0 Yes [id number] 25mg Take 1 Univers (TOPAMAX) 7-22 tablet by ity o f 25 mg 00:00: mouth 2 [place] tablet 00 (two) Medical times Branch daily. topiramate 2020-0 Yes [id number] 25mg Take 1 Univers (TOPAMAX) 7-22 tablet by ity o f 25 mg 00:00: mouth 2 [place] tablet 00 (two) Medical times Branch daily. topiramate 2020-0 Yes [id number] 25mg Take 1 Univers (TOPAMAX) 7-22 tablet by ity o f 25 mg 00:00: mouth 2 [place] tablet 00 (two) Medical times Branch daily. topiramate 2020-0 Yes [id number] 25mg Take 1 Univers (TOPAMAX) 7-22 tablet by ity o f 25 mg 00:00: mouth 2 [place] tablet 00 (two) Medical times Branch daily. topiramate 2020-0 Yes [id number] 25mg Take 1 Univers (TOPAMAX) 7-22 tablet by ity o f 25 mg 00:00: mouth 2 [place] tablet 00 (two) Medical times Branch daily. topiramate 2020-0 Yes [id number] 25mg Take 1 Univers (TOPAMAX) 7-22 tablet by ity o f 25 mg 00:00: mouth 2 [place] tablet 00 (two) Medical times Branch daily. topiramate 2020-0 Yes [id number] 25mg Take 1 Univers (TOPAMAX) 7-22 tablet by ity o f 25 mg 00:00: mouth 2 [place] tablet 00 (two) Medical times Branch daily. topiramate 2020-0 Yes [id number] 25mg Take 1 Univers (TOPAMAX) 7-22 tablet by ity o f 25 mg 00:00: mouth 2 [place] tablet 00 (two) Medical times Branch daily. topiramate 2020-0 Yes [id number] 25mg Take 1 Univers (TOPAMAX) 7-22 tablet by ity o f 25 mg 00:00: mouth 2 [place] tablet 00 (two) Medical times Branch daily. topiramate 2020-0 Yes [id number] 25mg Take 1 Univers (TOPAMAX) 7-22 tablet by ity o f 25 mg 00:00: mouth 2 [place] tablet 00 (two) Medical times Branch daily. topiramate 2020-0 2020- No [id number] 25mg Take 1 Univers (TOPAMAX) 7-22 12-04 tablet by ity of 25 mg 00:00: 00:00 mouth 2 [place] tablet 00 :00 (two) Medical times Branch daily. topiramate 2020-0 2020- No [id number] 25mg Take 1 Univers (TOPAMAX) 7-22 12-04 [...] Medical times Branch daily. omeprazole 2020-0 Yes [id number] 20mg Take 1 Univers 20 mg 7-16 capsule by ity of capsule 00:00: mouth [place] 00 daily. Medical Branch topiramate 2020-0 Yes 25mg Take 1 Unive rs (TOPAMAX) 7-16 tablet by ity o f 25 mg 00:00: mouth 2 [place] tablet 00 (two) Medical times Branch daily. omeprazole 2020-0 Yes [id number] 20mg Take 1 Univers 20 mg 7-16 capsule by ity of capsule 00:00: mouth [place] 00 daily. Medical Branch topiramate 2020-0 Yes 25mg Take 1 Unive rs (TOPAMAX) 7-16 tablet by ity o f 25 mg 00:00: mouth 2 [place] tablet 00 (two) Medical times Branch daily. omeprazole 2020-0 Yes [id number] 20mg Take 1 Univers 20 mg 7-16 capsule by ity of capsule 00:00: mouth [place] 00 daily. Medical Branch omeprazole 2020-0 Yes [id number] 20mg Take 1 Univers 20 mg 7-16 capsule by ity of capsule 00:00: mouth [place] 00 daily. Medical Branch omeprazole 2020-0 Yes [id number] 20mg Take 1 Univers 20 mg 7-16 capsule by ity of capsule 00:00: mouth [place] 00 daily. Medical Branch omeprazole 2020-0 Yes [id number] 20mg Take 1 Univers 20 mg 7-16 capsule by ity of capsule 00:00: mouth [place] 00 daily. Medical Branch omeprazole 2020-0 Yes [id number] 20mg Take 1 Univers 20 mg 7-16 capsule by ity of capsule 00:00: mouth [place] 00 daily. Medical Branch omeprazole 2020-0 Yes [id number] 20mg Take 1 Univers 20 mg 7-16 capsule by ity of capsule 00:00: mouth [place] 00 daily. Medical Branch omeprazole 2020-0 Yes [id number] 20mg Take 1 Univers 20 mg 7-16 capsule by ity of capsule 00:00: mouth [place] 00 daily. Medical Branch omeprazole 2020-0 Yes [id number] 20mg Take 1 Univers 20 mg 7-16 capsule by ity of capsule 00:00: mouth [place] 00 daily. Medical Branch omeprazole 2020-0 Yes [id number] 20mg Take 1 Univers 20 mg 7-16 capsule by ity of capsule 00:00: mouth [place] 00 daily. Medical Branch omeprazole 2020-0 Yes [id number] 20mg Take 1 Univers 20 mg 7-16 capsule by ity of capsule 00:00: mouth [place] 00 daily. Medical Branch omeprazole 2020-0 Yes [id number] 20mg Take 1 Univers 20 mg 7-16 capsule by ity of capsule 00:00: mouth [place] 00 daily. Medical Branch omeprazole 2020-0 Yes [id number] 20mg Take 1 Univers 20 mg 7-16 capsule by ity of capsule 00:00: mouth [place] 00 daily. Medical Branch omeprazole 2020-0 Yes [id number] 20mg Take 1 Univers 20 mg 7-16 capsule by ity of capsule 00:00: mouth [place] 00 daily. Medical Branch omeprazole 2020-0 Yes [id number] 20mg Take 1 Univers 20 mg 7-16 capsule by ity of capsule 00:00: mouth [place] 00 daily. Medical Branch omeprazole 2020-0 Yes [id number] 20mg Take 1 Univers 20 mg 7-16 capsule by ity of capsule 00:00: mouth [place] 00 daily. Medical Branch omeprazole 2020-0 2020- No [id number] 20mg Take 1 Univers 20 mg 7-16 12-04 capsule by ity of capsule 00:00: 00:00 mouth [place] 00 :00 daily. Medical Branch omeprazole 2020-0 2020- No [id number] 20mg Take 1 Univers 20 mg 7-16 [...] mouth ity of tablet 00:00: as needed. [place] [facility] meclizine 2020-0 Yes 25mg Take 25 mg Un dante 25 mg 7-07 by mouth ity of tablet 00:00: as needed. [place] Medical [facility] meclizine 2020-0 Yes 25mg Take 25 mg Un dante 25 mg 7-07 by mouth ity of tablet 00:00: as needed. [place] Medical [facility] meclizine 2020-0 Yes 25mg Take 25 mg Un dante 25 mg 7-07 by mouth ity of tablet 00:00: as needed. [place] Medical [facility] meclizine 2020-0 Yes 25mg Take 25 mg Un dante 25 mg 7-07 by mouth ity of tablet 00:00: as needed. [place] [facility] meclizine 2020-0 Yes 25mg Take 25 mg Un dante 25 mg 7-07 by mouth ity of tablet 00:00: as needed. [place] [facility] meclizine 2020-0 Yes 25mg Take 25 mg Un dante 25 mg 7-07 by mouth ity of tablet 00:00: as needed. [place] [facility] meclizine 2020-0 Yes 25mg Take 25 mg Un dante 25 mg 7-07 by mouth ity of tablet 00:00: as needed. [place] [facility] meclizine 2020-0 Yes 25mg Take 25 mg Un dante 25 mg 7-07 by mouth ity of tablet 00:00: as needed. [place] [facility] meclizine 2020-0 Yes 25mg Take 25 mg Un dante 25 mg 7-07 by mouth ity of tablet 00:00: as needed. [place] [address] Medical Branch meclizine 2020-0 Yes 25mg Take 25 mg Un dante 25 mg 7-07 by mouth ity of tablet 00:00: as needed. [place] [address] Medical Branch meclizine 2020-0 Yes 25mg Take 25 mg Un dante 25 mg 7-07 by mouth ity of tablet 00:00: as needed. [place] [address] Medical Branch meclizine 2020-0 Yes 25mg Take 25 mg Un dante 25 mg 7-07 by mouth ity of tablet 00:00: as needed. [place] [address] Medical Branch meclizine 2020-0 Yes 25mg Take 25 mg Un dante 25 mg 7-07 by mouth ity of tablet 00:00: as needed. [place] [address] Medical Branch meclizine 2020-0 Yes 25mg Take 25 mg Un dante 25 mg 7-07 by mouth ity of tablet 00:00: as needed. [place] [address] Medical Branch meclizine 2020-0 Yes 25mg Take 25 mg Un dante 25 mg 7-07 by mouth ity of tablet 00:00: as needed. [place] Medical Branch meclizine 2019-0 Yes 25mg Take 25 mg Un dante 25 mg 7-07 by mouth ity of tablet 00:00: as needed. [place] Medical [place] meclizine 0 2020- No 25mg Take 25 mg U nivers 25 mg 09-26 12-04 by mouth ity of tablet 00:00: 00:00 [place]. [place] :[place] Medical [place] meclizine 0 2020- No 25mg Take 25 mg U nivers 25 mg 09-26-04 by mouth ity of tablet 00:00: 00:00 [place]. [place] 00 :[place] Medical [place] Nitrofurant 2019-0 Yes [id number] 100mg Take 1 Univers oin&Nit. 5-18 capsule by ity o f [place] 00:00: mouth 2 [place] (MACROBID) 00 (two) Medical 100 mg times Branch capsule daily. Nitrofurant 2019-0 Yes [id number] 100mg Take 1 Univers oin&Nit. 5-18 capsule by ity o f [place] 00:00: mouth 2 [place] (MACROBID) 00 (two) Medical 100 mg times Branch capsule daily. Nitrofurant 2019-0 Yes [id number] 100mg Take 1 Univers oin&Nit. 5-18 capsule by ity o f [place] 00:00: mouth 2 [place] (MACROBID) 00 (two) Medical 100 mg times Branch capsule daily. Nitrofurant 2019- 2020- No [id number] 100mg Take 1 Univers oin&Nit. 5-18 07-16 capsule by ity of [place] 00:00: 00:00 mouth 2 [place] (MACROBID) 00 :00 (two) Medical 100 mg times Branch capsule daily. Nitrofurant 2019-0 2020- No [id number] 100mg Take 1 Univers oin&Nit. 5-18 07-16 capsule by ity of [place] 00:00: 00:00 mouth 2 [place] as (MACROBID) 00 :00 (two) Medical 100 mg times Branch capsule daily. etonogestre 2019-0 2020- No 68mg Unive rs l 5-14 05-14 ity of (NEXPLANON) 20:45: 19:36 [place] implant 68 00 :00 Medical mg Branch etonogestre 2019-0 2019- No 68mg 68 mg, Uni vers l 08-03 Subdermal, ity of (NEXPLANON) 20:45: 19:36 ONCE NOW, [place] implant 68 00 :00 1 dose, Medica l mg [place] Branch 08/04/19 at 1545, Routine
Use approved by: RECREATION THERAPIST etonogestre 2019-0 2019- No 68mg Unive rs l 08-03 ity of (NEXPLANON) 20:45: 19:36 [place] implant 68 00 :00 Medical mg Branch etonogestre 2019-2019- No 68mg 68 mg, Uni vers l 08-03 Subdermal, ity of (NEXPLANON) 20:45: 19:36 ONCE NOW, [place] implant 68 00 :00 1 dose, Medica l mg Gladys Branch 08/04/19 at 1545, Routine
Use approved by: RECREATION THERAPIST norelgestro 2020-0 Yes [id number] 1{patch Apply 1 [facility] min-ethinyl 3-25 } Patch to ity of estradiol 00:00: skin [place] 150-35 00 weekly. Medical mcg/24 hr Branch patch norelgestro 2020-0 Yes [id number] 1{patch Apply 1 [facility] min-ethinyl 3-25 } Patch to ity of estradiol 00:00: skin [place] 150-35 00 weekly. Medical mcg/24 hr Branch patch norelgestro 2020-0 Yes [id number] 1{patch Apply 1 [facility] min-ethinyl 3-25 } Patch to ity of estradiol 00:00: skin [place] 150-35 00 weekly. Medical mcg/24 hr Branch patch norelgestro 2020-0 Yes [id number] 1{patch Apply 1 [facility] min-ethinyl 3-25 } Patch to ity of estradiol 00:00: skin [place] 150-35 00 weekly. Medical mcg/24 hr Branch patch norelgestro 2020-0 Yes [id number] 1{patch Apply 1 [facility] min-ethinyl 3-25 } Patch to ity of estradiol 00:00: skin [place] 150-35 00 weekly. Medical mcg/24 hr Branch patch norelgestro 2020-0 2020- No [id number] 1{patch Apply 1 [facility] min-ethinyl 3-25 05-14 } Patch to ity of estradiol 00:00: 00:00 skin [place] 150-35 00 :00 weekly. Medical mcg/24 hr Branch patch norelgestro 2019-0 2020- No [id number] 1{patch Apply 1 [facility] min-ethinyl 3-25 05-14 } Patch to ity of estradiol 00:00: 00:00 skin [place] 150-35 00 :00 weekly. Medical mcg/24 hr Branch patch ibuprofen 2020-0 Yes [id number] 600mg Take 1 U nivers 600 mg 3-02 tablet by ity of tablet 00:00: mouth [place] 00 every 8 Medical (eight) Branch hours as needed for Pain (scale 4-6) (headache) . ibuprofen 2020-0 Yes [id number] 600mg Take 1 U nivers 600 mg 3-02 tablet by ity of tablet 00:00: mouth [place] 00 every 8 Medical (eight) Branch hours as needed for Pain (scale 4-6) (headache) . ibuprofen 2020-0 Yes [id number] 600mg Take 1 U nivers 600 mg 3-02 tablet by ity of tablet 00:00: mouth [place] 00 every 8 Medical (eight) Branch hours as needed for Pain (scale 4-6) (headache) . ibuprofen 2020-0 Yes [id number] 600mg Take 1 U nivers 600 mg 3-02 tablet by ity of tablet 00:00: mouth [place] 00 every 8 Medical (eight) Branch hours as needed for Pain (scale 4-6) (headache) . ibuprofen 2020-0 Yes [id number] 600mg Take 1 U nivers 600 mg 3-02 tablet by ity of tablet 00:00: mouth [place] 00 every 8 Medical (eight) Branch hours as needed for Pain (scale 4-6) (headache) . ibuprofen 2020-0 Yes [id number] 600mg Take 1 U nivers 600 mg 3-02 tablet by ity of tablet 00:00: mouth [place] 00 every 8 Medical (eight) Branch hours as needed for Pain (scale 4-6) (headache) . ibuprofen 2020-0 Yes [id number] 600mg Take 1 U nivers 600 mg 3-02 tablet by ity of tablet 00:00: mouth [place] 00 every 8 Medical (eight) Branch hours as needed for Pain (scale 4-6) (headache) . ibuprofen 2020-0 Yes [id number] 600mg Take 1 U nivers 600 mg 3-02 tablet by ity of tablet 00:00: mouth [place] 00 every 8 Medical (eight) Branch hours as needed for Pain (scale 4-6) (headache) . ibuprofen 2020-0 Yes [id number] 600mg Take 1 U nivers 600 mg 3-02 tablet by ity of tablet 00:00: mouth [place] 00 every 8 Medical (eight) Branch hours as needed for Pain (scale 4-6) (headache) . ibuprofen 2020-0 Yes [id number] 600mg Take 1 U nivers 600 mg 3-02 tablet by ity of tablet 00:00: mouth [place] 00 every 8 Medical (eight) Branch hours as needed for Pain (scale 4-6) (headache) . ibuprofen 2020-0 Yes [id number] 600mg Take 1 U nivers 600 mg 3-02 tablet by ity of tablet 00:00: mouth [place] 00 every 8 Medical (eight) Branch hours as needed for Pain (scale 4-6) (headache) . ibuprofen 2020-0 Yes [id number] 600mg Take 1 U nivers 600 mg 3-02 tablet by ity of tablet 00:00: mouth [place] 00 every 8 Medical (eight) Branch hours as needed for Pain (scale 4-6) (headache) . ibuprofen 2020-0 Yes [id number] 600mg Take 1 U nivers 600 mg 3-02 tablet by ity of tablet 00:00: mouth [place] 00 every 8 Medical (eight) Branch hours as needed for Pain (scale 4-6) (headache) . ibuprofen 2020-0 Yes [id number] 600mg Take 1 U nivers 600 mg 3-02 tablet by ity of tablet 00:00: mouth [place] 00 every 8 Medical (eight) Branch hours as needed for Pain (scale 4-6) (headache) . ibuprofen 2020-0 Yes [id number] 600mg Take 1 U nivers 600 mg 3-02 tablet by ity of tablet 00:00: mouth [place] 00 every 8 Medical (eight) Branch hours as needed for Pain (scale 4-6) (headache) . ibuprofen 2020-0 Yes [id number] 600mg Take 1 U nivers 600 mg 3-02 tablet by ity of tablet 00:00: mouth [place] 00 every 8 Medical (eight) Branch hours as needed for Pain (scale 4-6) (headache) . ibuprofen 2020-0 Yes [id number] 600mg Take 1 U nivers 600 mg 3-02 tablet by ity of tablet 00:00: mouth [place] 00 every 8 Medical (eight) Branch hours as needed for Pain (scale 4-6) (headache) . ibuprofen 2020-0 Yes [id number] 600mg Take 1 U nivers 600 mg 3-02 tablet by ity of tablet 00:00: mouth [place] 00 every 8 Medical (eight) Branch hours as needed for Pain (scale 4-6) (headache) . ibuprofen 2020-0 Yes [id number] 600mg Take 1 U nivers 600 mg 3-02 tablet by ity of tablet 00:00: mouth [place] 00 every 8 Medical (eight) Branch hours as needed for Pain (scale 4-6) (headache) . ibuprofen 2020-0 Yes [id number] 600mg Take 1 U nivers 600 mg 3-02 tablet by ity of tablet 00:00: mouth [place] 00 every 8 Medical (eight) Branch hours as needed for Pain (scale 4-6) (headache) . ibuprofen 2020-0 Yes [id number] 600mg Take 1 U nivers 600 mg 3-02 tablet by ity of tablet 00:00: mouth [place] 00 every 8 Medical (eight) Branch hours as needed for Pain (scale 4-6) (headache) . ibuprofen 2020-0 Yes [id number] 600mg Take 1 U nivers 600 mg 3-02 tablet by ity of tablet 00:00: mouth [place] 00 every 8 Medical (eight) Branch hours as needed for Pain (scale 4-6) (headache) . ibuprofen 2020-0 Yes [id number] 600mg Take 1 U nivers 600 mg 3-02 tablet by ity of tablet 00:00: mouth [place] 00 every 8 Medical (eight) Branch hours as needed for Pain (scale 4-6) (headache) . ibuprofen 2020-0 Yes [id number] 600mg Take 1 U nivers 600 mg 3-02 tablet by ity of tablet 00:00: mouth [place] 00 every 8 Medical (eight) Branch hours as needed for Pain (scale 4-6) (headache) . ibuprofen 2020-0 Yes [id number] 600mg Take 1 U nivers 600 mg 3-02 tablet by ity of tablet 00:00: mouth [place] 00 every 8 Medical (eight) Branch hours as needed for Pain (scale 4-6) (headache) . ibuprofen 2020-0 Yes [id number] 600mg Take 1 U nivers 600 mg 3-02 tablet by ity of tablet 00:00: mouth [place] 00 every 8 Medical (eight) Branch hours as needed for Pain (scale 4-6) (headache) . ibuprofen 2020-0 Yes [id number] 600mg Take 1 U nivers 600 mg 3-02 tablet by ity of tablet 00:00: mouth [place] 00 every 8 Medical (eight) Branch hours as needed for Pain (scale 4-6) (headache) . ibuprofen 2020-0 Yes [id number] 600mg Take 1 U nivers 600 mg 3-02 tablet by ity of tablet 00:00: mouth [place] 00 every 8 Medical (eight) Branch hours as needed for Pain (scale 4-6) (headache) . ibuprofen 2020-0 Yes [id number] 600mg Take 1 U nivers 600 mg 3-02 tablet by ity of tablet 00:00: mouth [place] 00 every 8 Medical (eight) Branch hours as needed for Pain (scale 4-6) (headache) . ibuprofen 2020-0 Yes [id number] 600mg Take 1 U nivers 600 mg 3-02 tablet by ity of tablet 00:00: mouth [place] 00 every 8 Medical (eight) Branch hours as needed for Pain (scale 4-6) (headache) . ibuprofen 2020-0 Yes [id number] 600mg Take 1 U nivers 600 mg 3-02 tablet by ity of tablet 00:00: mouth [place] 00 every 8 Medical (eight) Branch hours as needed for Pain (scale 4-6) (headache) . ibuprofen 2020-0 2020- No [id number] 600mg Take 1 [facility] 600 mg 3-02 12-04 tablet by ity of tablet 00:00: 00:00 mouth [place] 00 :00 every 8 Medical (eight) Branch hours as needed for Pain (scale 4-6) (headache) . ibuprofen 2020-0 2020- No [id number] 600mg Take 1 [facility] 600 mg 3-02 12-04 tablet by ity of tablet 00:00: 00:00 mouth [place] 00 :00 every 8 Medical (eight) Branch hours as needed for Pain (scale 4-6) (headache) . medroxyPROG 2020-0 2020- No 150mg Univ ers ESTERone 2-24 02-24 ity of (DEPO-PROVE 23:00: 21:50 [facility]) 00 :00 Medical injection Branch 150 mg medroxyPROG 2020-0 2020- No 150mg 150 mg, U nivers ESTERone 05-16 Intramuscu ity of (DEPO-PROVE 23:00: 21:50 lar, ONCE, [place] RA) 00 :00 1 dose, Medical injection Mon Branch 150 mg 05/16/19 at 1700, Routine oxybutynin 2020-0 Yes [id number] 5mg Take 1 U nivers chloride 5 2-11 tablet by ity of mg tablet 00:00: mouth [place] (two) Medical times Branch daily. oxybutynin 2020-0 Yes [id number] 5mg Take 1 U nivers chloride 5 2-11 tablet by ity of mg tablet 00:00: mouth [place] (two) Medical times Branch daily. oxybutynin 2020-0 Yes [id number] 5mg Take 1 U nivers chloride 5 2-11 tablet by ity of mg tablet 00:00: mouth [place] (two) Medical times Branch daily. oxybutynin 2020-0 Yes [id number] 5mg Take 1 U nivers chloride 5 2-11 tablet by ity of mg tablet 00:00: mouth [place] (two) Medical times Branch daily. oxybutynin 2020-0 Yes [id number] 5mg Take 1 U nivers chloride 5 2-11 tablet by ity of mg tablet 00:00: mouth [place] (two) Medical times Branch daily. oxybutynin 2020-0 Yes [id number] 5mg Take 1 U nivers chloride 5 2-11 tablet by ity of mg tablet 00:00: mouth [place] (two) Medical times Branch daily. oxybutynin 2020-0 Yes [id number] 5mg Take 1 U nivers chloride 5 2-11 tablet by ity of mg tablet 00:00: mouth [place] (two) Medical times Branch daily. oxybutynin 2020-0 Yes [id number] 5mg Take 1 U nivers chloride 5 2-11 tablet by ity of mg tablet 00:00: mouth [place] (two) Medical times Branch daily. oxybutynin 2020-0 Yes [id number] 5mg Take 1 U nivers chloride 5 2-11 tablet by ity of mg tablet 00:00: mouth [place] (two) Medical times Branch daily. oxybutynin 2020-0 Yes [id number] 5mg Take 1 U nivers chloride 5 2-11 tablet by ity of mg tablet 00:00: mouth 2 (two) Medical times Branch daily. oxybutynin 2020-0 Yes [id number] 5mg Take 1 U nivers chloride 5 2-11 tablet by ity of mg tablet 00:00: mouth 2 (two) Medical times Branch daily. oxybutynin 2020-0 Yes [id number] 5mg Take 1 U nivers chloride 5 2-11 tablet by ity of mg tablet 00:00: mouth 2 (two) Medical times Branch daily. oxybutynin 2020-0 Yes [id number] 5mg Take 1 U nivers chloride 5 2-11 tablet by ity of mg tablet 00:00: mouth 2 (two) Medical times Branch daily. oxybutynin 2020-0 Yes [id number] 5mg Take 1 U nivers chloride 5 2-11 tablet by ity of mg tablet 00:00: mouth [place] (two) Medical times Branch daily. oxybutynin 2020-0 Yes [id number] 5mg Take 1 U nivers chloride 5 2-11 tablet by ity of mg tablet 00:00: mouth (two) Medical times Branch daily. oxybutynin 2020-0 Yes [id number] 5mg Take 1 U nivers chloride 5 2-11 tablet by ity of mg tablet 00:00: mouth (two) Medical times Branch daily. oxybutynin 2020-0 Yes [id number] 5mg Take 1 U nivers chloride 5 2-11 tablet by ity of mg tablet 00:00: mouth [place] (two) Medical times Branch daily. oxybutynin 2020-0 2020- No [id number] 5mg Take 1 [facility] chloride 5 2-11 07-16 tablet by ity of mg tablet 00:00: 00:00 [place] :[place] (two) Medical times Branch daily. oxybutynin 2020-0 2020- No [id number] 5mg Take 1 [facility] chloride 5 2-11 07-16 tablet by ity of mg tablet 00:00: 00:[place] :[place] (two) Medical times Branch daily. polyethylen 2019- Yes [id number] 1/2 cap Univers e glycol 2-31 twice ity of (MIRALAX) 00:00: daily [place] [id number] 00 Medical gram/dose Branch powder polyethylen 2019- Yes [id number] 1/2 cap Univers e glycol 2-31 twice ity of (MIRALAX) 00:00: daily [place] 17 Medical gram/dose Branch powder polyethylen 2019- Yes [id number] 1/2 cap Univers e glycol 2-31 twice ity of (MIRALAX) 00:00: daily [place] 17 Medical gram/dose Branch powder polyethylen 2019- Yes [id number] 1/2 cap Univers e glycol 2-31 twice ity of (MIRALAX) 00:00: daily [place] 17 Medical gram/dose Branch powder polyethylen 2019- Yes [id number] 1/2 cap Univers e glycol 2-31 twice ity of (MIRALAX) 00:00: daily [place] 17 Medical gram/dose Branch powder polyethylen 2019- Yes [id number] 1/2 cap Univers e glycol 2-31 twice ity of (MIRALAX) 00:00: daily [place] 17 Medical gram/dose Branch powder polyethylen 2019- Yes [id number] 1/2 cap Univers e glycol 2-31 twice ity of (MIRALAX) 00:00: daily [place] 17 Medical gram/dose Branch powder polyethylen 2019- Yes [id number] 1/2 cap Univers e glycol 2-31 twice ity of (MIRALAX) 00:00: daily [place] 17 Medical gram/dose Branch powder polyethylen 2019- Yes [id number] 1/2 cap Univers e glycol 2-31 twice ity of (MIRALAX) 00:00: daily [place] 17 Medical gram/dose Branch powder polyethylen 2019- Yes [id number] 1/2 cap Univers e glycol 2-31 twice ity of (MIRALAX) 00:00: daily [place] 17 Medical gram/dose Branch powder polyethylen 2019- Yes [id number] 1/2 cap Univers e glycol 2-31 twice ity of (MIRALAX) 00:00: daily [place] 17 Medical gram/dose Branch powder polyethylen 2019- Yes [id number] 1/2 cap Univers e glycol 2-31 twice ity of (MIRALAX) 00:00: daily [place] 17 Medical gram/dose Branch powder polyethylen 2019- Yes [id number] 1/2 cap Univers e glycol 2-31 twice ity of (MIRALAX) 00:00: daily [place] 17 Medical gram/dose Branch powder polyethylen 2019- Yes [id number] 1/2 cap Univers e glycol 2-31 twice ity of (MIRALAX) 00:00: daily [place] 17 Medical gram/dose Branch powder polyethylen 2019- Yes [id number] 1/2 cap Univers e glycol 2-31 twice ity of (MIRALAX) 00:00: daily [place] 17 Medical gram/dose Branch powder polyethylen 2019- Yes [id number] 1/2 cap Univers e glycol 2-31 twice ity of (MIRALAX) 00:00: daily [place] 17 Medical gram/dose Branch powder polyethylen 2019- Yes [id number] 1/2 cap Univers e glycol 2-31 twice ity of (MIRALAX) 00:00: daily [place] 17 Medical gram/dose Branch powder polyethylen 2019- Yes [id number] 1/2 cap Univers e glycol 2-31 twice ity of (MIRALAX) 00:00: daily [place] Medical gram/dose Branch powder polyethylen 2019- Yes [id number] 1/2 cap Univers e glycol 2-31 twice ity of (MIRALAX) 00:00: daily [place] 17 Medical gram/dose Branch powder polyethylen 2019- Yes [id number] 1/2 cap Univers e glycol 2-31 twice ity of (MIRALAX) 00:00: daily [place] 17 Medical gram/dose Branch powder polyethylen 2019- Yes [id number] 1/2 cap Univers e glycol 2-31 twice ity of (MIRALAX) 00:00: daily [place] 17 Medical gram/dose Branch powder polyethylen 2019- Yes [id number] 1/2 cap Univers e glycol 2-31 twice ity of (MIRALAX) 00:00: daily [place] 17 Medical gram/dose Branch powder polyethylen 2019- Yes [id number] 1/2 cap Univers e glycol 2-31 twice ity of (MIRALAX) 00:00: daily [place] 17 Medical gram/dose Branch powder polyethylen 2019- Yes [id number] 1/2 cap Univers e glycol 2-31 twice ity of (MIRALAX) 00:00: daily [place] 17 Medical gram/dose Branch powder polyethylen 2019- Yes [id number] 1/2 cap Univers e glycol 2-31 twice ity of (MIRALAX) 00:00: daily [place] 17 Medical gram/dose Branch powder polyethylen 2019-1 Yes [id number] 1/2 cap Univers e glycol 2-31 twice ity of (MIRALAX) 00:00: daily [place] 17 Medical gram/dose Branch powder polyethylen 2019-1 Yes [id number] 1/2 cap Univers e glycol 2-31 twice ity of (MIRALAX) 00:00: daily [place] 17 Medical gram/dose Branch powder polyethylen 2019- Yes [id number] 1/2 cap Univers e glycol 2-31 twice ity of (MIRALAX) 00:00: daily [place] 17 Medical gram/dose Branch powder polyethylen 2019- Yes [id number] 1/2 cap Univers e glycol 2-31 twice ity of (MIRALAX) 00:00: daily [place] 17 Medical gram/dose Branch powder polyethylen 2019-1 Yes [id number] 1/2 cap Univers e glycol 2-31 twice ity of (MIRALAX) 00:00: daily [place] 17 Medical gram/dose Branch powder polyethylen 2019- Yes [id number] 1/2 cap Univers e glycol 2-31 twice ity of (MIRALAX) 00:00: daily [place] 17 Medical gram/dose Branch powder polyethylen 2019-1 Yes [id number] 1/2 cap Univers e glycol 2-31 twice ity of (MIRALAX) 00:00: daily [place] 17 Medical gram/dose Branch powder polyethylen 2019-1 Yes [id number] 1/2 cap Univers e glycol 2-31 twice ity of (MIRALAX) 00:00: daily [place] 17 Medical gram/dose Branch powder polyethylen 2019- Yes [id number] 1/2 cap Univers e glycol 2-31 twice ity of (MIRALAX) 00:00: daily [place] 17 Medical gram/dose Branch powder polyethylen 2019-1 Yes [id number] 1/2 cap Univers e glycol 2-31 twice ity of (MIRALAX) 00:00: daily [place] 17 Medical gram/dose Branch powder polyethylen 2019-1 Yes [id number] 1/2 cap Univers e glycol 2-31 twice ity of (MIRALAX) 00:00: daily [place] 17 Medical gram/dose Branch powder polyethylen 2018-03 Yes [id number] 1/2 cap Univers e glycol 2-31 twice ity of (MIRALAX) 00:00: daily [place] 17 Medical gram/dose Branch powder polyethylen 2018-03 Yes [id number] 1/2 cap Univers e glycol 2- twice ity of (MIRALAX) 00:00: daily [place] Medical gram/dose Branch powder polyethylen 2018-03 Yes [id number] 1/2 cap Univers e glycol 2- twice ity of (MIRALAX) 00:00: daily [place] 17 Medical gram/dose Branch powder polyethylen 2018-03 Yes [id number] 1/2 cap Univers e glycol 2- twice ity of (MIRALAX) 00:00: daily [place] Medical gram/dose Branch powder polyethylen 2018-03- No [id number] 1/2 cap Univers e glycol 2-04-02 twice ity of (MIRALAX) 00:00: 00:00 daily [place] 17 00 :00 Medical gram/dose Branch powder polyethylen 2018-03- No [id number] 1/2 cap Univers e glycol 2-04-02 twice ity of (MIRALAX) 00:00: 00:00 daily [place] 17 00 :00 Medical gram/dose Branch powder polyethylen 2018-2020- No [id number] 1/2 cap Univers e glycol 2-04-02 twice ity of (MIRALAX) 00:00: 00:00 daily [place] 17 00 :00 Medical gram/dose Branch powder polyethylen 2018-03- No [id number] 1/2 cap Univers e glycol 2-04-02 twice ity of (MIRALAX) 00:00: 00:00 daily [place] 17 00 :00 Medical gram/dose Branch powder polyethylen 2018-03- No [id number] 1/2 cap Univers e glycol 2-04-02 twice ity of (MIRALAX) 00:00: 00:00 daily [place] 17 00 :00 Medical gram/dose Branch powder polyethylen 2018-03- No [id number] 1/2 cap Univers e glycol 04-02 twice ity of (MIRALAX) 00:00: 00:00 daily [place] [id number] 00 :00 Medical gram/dose Branch powder medroxyPROG 2019- No [id number] 150mg Univers ESTERone 11-11 ity of (DEPO-PROVE 15:00: 13:54 [place] RA) 00 :00 Medical injection Branch 150 mg medroxyPROG 2019- No [id number] 150mg 150 mg, Univers ESTERone 11-11 Intramuscu ity of (DEPO-PROVE 15:00: 13:54 lar, ONCE, [place] RA) 00 :00 1 dose, Medical injection Gladys Branch 150 mg 11/11/18 at 1000, Routine medroxyPROG 2019- No [id number] 150mg Univers ESTERone 11-11 ity of (DEPO-PROVE 15:00: 13:54 [place] RA) 00 :00 Medical injection Branch 150 mg medroxyPROG 2019- No [id number] 150mg 150 mg, Univers ESTERone 11-11 Intramuscu ity of (DEPO-PROVE 15:00: 13:54 lar, ONCE, [place] RA) 00 :00 1 dose, Medical injection Gladys Branch 150 mg 11/11/18 at 1000, Routine zonisamide Yes [id number] 200mg Take 2 Univers 100 mg 4-12 capsules ity of capsule 00:00: by mouth [place] 00 daily. Medical Branch zonisamide Yes [id number] 200mg Take 2 [facility] 100 mg 4-12 capsules ity of capsule 00:00: by mouth [place] 00 daily. Medical Branch zonisamide 2018- Yes [id number] 200mg Take 2 [facility] 100 mg 4-12 capsules ity of capsule 00:00: by mouth [place] 00 daily. Medical Branch zonisamide Yes [id number] 200mg Take 2 [facility] 100 mg 4-12 capsules ity of capsule 00:00: by mouth [place] 00 daily. Medical Branch zonisamide 2018- Yes [id number] 200mg Take 2 [facility] 100 mg 4-12 capsules ity of capsule 00:00: by mouth [place] 00 daily. Medical Branch zonisamide Yes [id number] 200mg Take 2 [facility] 100 mg 4-12 capsules ity of capsule 00:00: by mouth [place] 00 daily. Medical Branch zonisamide Yes [id number] 200mg Take 2 [facility] 100 mg 4-12 capsules ity of capsule 00:00: by mouth [place] 00 daily. Medical Branch zonisamide 2019-0 Yes [id number] 200mg Take 2 [facility] 100 mg 4-12 capsules ity of capsule 00:00: by mouth [place] 00 daily. Medical Branch zonisamide 0 Yes [id number] 200mg Take 2 [facility] 100 mg 4-12 capsules ity of capsule 00:00: by mouth [place] 00 daily. Medical Branch zonisamide 0 Yes [id number] 200mg Take 2 [facility] 100 mg 4-12 capsules ity of capsule 00:00: by mouth [place] 00 daily. Medical Branch zonisamide Yes [id number] 200mg Take 2 [facility] 100 mg 4-12 capsules ity of capsule 00:00: by mouth [place] 00 daily. Medical Branch zonisamide 0 Yes [id number] 200mg Take 2 [facility] 100 mg 4-12 capsules ity of capsule 00:00: by mouth [place] 00 daily. Medical Branch zonisamide Yes [id number] 200mg Take 2 [facility] 100 mg 4-12 capsules ity of capsule 00:00: by mouth [place] 00 daily. Medical Branch zonisamide 0 Yes [id number] 200mg Take 2 [facility] 100 mg 4-12 capsules ity of capsule 00:00: by mouth [place] 00 daily. Medical Branch zonisamide 0 Yes [id number] 200mg Take 2 [facility] 100 mg 4-12 capsules ity of capsule 00:00: by mouth [place] 00 daily. Medical Branch zonisamide 2018-0 2020- No [id number] 200mg Take 2 [facility] 100 mg 4-12 02-11 capsules ity of capsule 00:00: 00:00 by mouth [place] 00 :00 daily. Medical Branch zonisamide 0 2020- No [id number] 200mg Take 2 Univers 100 mg 4-12 [...] Completed Unive rsity of PFIZER VACCINE 00:00:00 [facility] SARS-COV-2 COVID-19 2020-07-06 Completed Unive rsity of PFIZER VACCINE 00:00:00 [facility] SARS-COV-2 COVID-19 2020-07-06 Completed Unive rsity of PFIZER VACCINE 00:00:00 [facility] SARS-COV-2 COVID-19 2020-07-06 Completed Unive rsity of PFIZER VACCINE 00:00:00 [facility] SARS-COV-2 COVID-19 2020-07-06 Completed Unive rsity of PFIZER VACCINE 00:00:00 [place] [facility] SARS-COV-2 COVID-19 2020-07-06 Completed Unive rsity of PFIZER VACCINE 00:00:00 [facility] SARS-COV-2 COVID-19 2020-07-06 Completed Unive rsity of PFIZER VACCINE 00:00:00 [facility] SARS-COV-2 COVID-19 2020-07-06 Completed Unive rsity of PFIZER VACCINE 00:00:00 [facility] SARS-COV-2 COVID-19 2020-07-06 Completed Unive rsity of PFIZER VACCINE 00:00:00 [facility] SARS-COV-2 COVID-19 2020-07-06 Completed Unive rsity of PFIZER VACCINE 00:00:00 [facility] SARS-COV-2 COVID-19 2020-07-06 Completed Unive rsity of PFIZER VACCINE 00:00:00 [facility] SARS-COV-2 COVID-19 2020-07-06 Completed Unive rsity of PFIZER VACCINE 00:00:00 [facility] SARS-COV-2 COVID-19 2020-07-06 Completed Unive rsity of PFIZER VACCINE 00:00:00 [facility] SARS-COV-2 COVID-19 2020-07-06 Completed Unive rsity of PFIZER VACCINE 00:00:00 [facility] SARS-COV-2 COVID-19 2020-07-06 Completed Unive rsity of PFIZER VACCINE 00:00:00 [facility] SARS-COV-2 COVID-19 2020-07-06 Completed Unive rsity of PFIZER VACCINE 00:00:00 [facility] SARS-COV-2 COVID-19 2020-07-06 Completed Unive rsity of PFIZER VACCINE 00:00:00 [facility] SARS-COV-2 COVID-19 2020-07-06 Completed Unive rsity of PFIZER VACCINE 00:00:00 [facility] SARS-COV-2 COVID-19 2020-07-06 Completed Unive rsity of PFIZER VACCINE 00:00:00 [facility] SARS-COV-2 COVID-19 2020-07-06 Completed Unive rsity of PFIZER VACCINE 00:00:00 [facility] SARS-COV-2 COVID-19 2020-07-06 Completed Unive rsity of PFIZER VACCINE 00:00:00 [facility] SARS-COV-2 COVID-19 2020-07-06 Completed Unive rsity of PFIZER VACCINE 00:00:00 [place] [facility] SARS-COV-2 COVID-19 2020-07-06 Completed Unive rsity of PFIZER VACCINE 00:00:00 [facility] SARS-COV-2 COVID-19 2020-07-06 Completed Unive rsity of PFIZER VACCINE 00:00:00 [facility] SARS-COV-2 COVID-19 2020-07-06 Completed Unive rsity of PFIZER VACCINE 00:00:00 [facility] SARS-COV-2 COVID-19 2020-07-06 Completed Unive rsity of PFIZER VACCINE 00:00:00 [facility] SARS-COV-2 COVID-19 2020-07-06 Completed Unive rsity of PFIZER VACCINE 00:00:00 [facility] SARS-COV-2 COVID-19 2020-07-06 Completed Unive rsity of PFIZER VACCINE 00:00:00 [facility] SARS-COV-2 COVID-19 2020-07-06 Completed Unive rsity of PFIZER VACCINE 00:00:00 [facility] SARS-COV-2 COVID-19 2020-07-06 Completed Unive rsity of PFIZER VACCINE 00:00:00 [facility] SARS-COV-2 COVID-19 2020-07-06 Completed Unive rsity of PFIZER VACCINE 00:00:00 [facility] SARS-COV-2 COVID-19 2020-07-06 Completed Unive rsity of PFIZER VACCINE 00:00:00 [facility] SARS-COV-2 COVID-19 2020-07-06 Completed [facility] PFIZER VACCINE 00:00:00 [facility] SARS-COV-2 COVID-19 2020-07-06 Completed [facility] PFIZER VACCINE 00:00:00 [facility] SARS-COV-2 COVID-19 2020-07-06 Completed [facility] PFIZER VACCINE 00:00:00 [facility] SARS-COV-2 COVID-19 2020-07-06 Completed [facility] PFIZER VACCINE 00:00:00 [facility] SARS-COV-2 COVID-19 2020-07-06 Completed [facility] PFIZER VACCINE 00:00:00 [facility] SARS-COV-2 COVID-19 2020-06-15 Completed [facility] PFIZER VACCINE 00:00:00 [facility] SARS-COV-2 COVID-19 2020-06-15 Completed [facility] PFIZER VACCINE 00:00:00 [facility] SARS-COV-2 COVID-19 2020-06-15 Completed [facility] PFIZER VACCINE 00:00:00 [facility] SARS-COV-2 COVID-19 2020-06-15 Completed [facility] PFIZER VACCINE 00:00:00 [facility] SARS-COV-2 COVID-19 2020-06-15 Completed [facility] PFIZER VACCINE 00:00:00 [facility] SARS-COV-2 COVID-19 2020-06-15 Completed [facility] PFIZER VACCINE 00:00:00 [facility] SARS-COV-2 COVID-19 2020-06-15 Completed [facility] PFIZER VACCINE 00:00:00 [facility] SARS-COV-2 COVID-19 2020-06-15 Completed [facility] PFIZER VACCINE 00:00:00 [facility] SARS-COV-2 COVID-19 2020-06-15 Completed [facility] PFIZER VACCINE 00:00:00 [facility] SARS-COV-2 COVID-19 2020-06-15 Completed [facility] PFIZER VACCINE 00:00:00 [facility] SARS-COV-2 COVID-19 2020-06-15 Completed [facility] PFIZER VACCINE 00:00:00 [facility] SARS-COV-2 COVID-19 2020-06-15 Completed [facility] PFIZER VACCINE 00:00:00 [facility] SARS-COV-2 COVID-19 2020-06-15 Completed [facility] PFIZER VACCINE 00:00:00 [facility] SARS-COV-2 COVID-19 2020-06-15 Completed [facility] PFIZER VACCINE 00:00:00 [facility] SARS-COV-2 COVID-19 2020-06-15 Completed [facility] PFIZER VACCINE 00:00:00 [facility] SARS-COV-2 COVID-19 2020-06-15 Completed [facility] PFIZER VACCINE 00:00:00 [facility] SARS-COV-2 COVID-19 2020-06-15 Completed [facility] PFIZER VACCINE 00:00:00 [facility] SARS-COV-2 COVID-19 2020-06-15 Completed [facility] PFIZER VACCINE 00:00:00 [facility] SARS-COV-2 COVID-19 2020-06-15 Completed [facility] PFIZER VACCINE 00:00:00 [facility] SARS-COV-2 COVID-19 2020-06-15 Completed [facility] PFIZER VACCINE 00:00:00 [facility] SARS-COV-2 COVID-19 2020-06-15 Completed [facility] PFIZER VACCINE 00:00:00 [facility] SARS-COV-2 COVID-19 2020-06-15 Completed [facility] PFIZER VACCINE 00:00:00 [facility] SARS-COV-2 COVID-19 2020-06-15 Completed [facility] PFIZER VACCINE 00:00:00 [facility] SARS-COV-2 COVID-19 2020-06-15 Completed [facility] PFIZER VACCINE 00:00:00 [facility] SARS-COV-2 COVID-19 2020-06-15 Completed [facility] PFIZER VACCINE 00:00:00 [facility] SARS-COV-2 COVID-19 2020-06-15 Completed [facility] PFIZER VACCINE 00:00:00 [facility] SARS-COV-2 COVID-19 2020-06-15 Completed [facility] PFIZER VACCINE 00:00:00 [facility] SARS-COV-2 COVID-19 2020-06-15 Completed [facility] PFIZER VACCINE 00:00:00 [facility] SARS-COV-2 COVID-19 2020-06-15 Completed [facility] PFIZER VACCINE 00:00:00 [facility] SARS-COV-2 COVID-19 2020-06-15 Completed [facility] PFIZER VACCINE 00:00:00 [facility] SARS-COV-2 COVID-19 2020-06-15 Completed [facility] PFIZER VACCINE 00:00:00 [facility] SARS-COV-2 COVID-19 2020-06-15 Completed [facility] PFIZER VACCINE 00:00:00 [facility] SARS-COV-2 COVID-19 2020-06-15 Completed [facility] PFIZER VACCINE 00:00:00 [facility] SARS-COV-2 COVID-19 2020-06-15 Completed [facility] PFIZER VACCINE 00:00:00 [facility] SARS-COV-2 COVID-19 2020-06-15 Completed [facility] PFIZER VACCINE 00:00:00 [facility] SARS-COV-2 COVID-19 2020-06-15 Completed [facility] PFIZER VACCINE 00:00:00 [facility] SARS-COV-2 COVID-19 2020-06-15 Completed [facility] PFIZER VACCINE 00:00:00 [facility] Meningococcal B, OMV 2020-04-16 Completed [facility] [...] OMV 2020-04-16 Completed [facility] 00:00:00 [facility] Meningococcal B, OMV 2020-04-16 Completed [facility] 00:00:00 [facility] Meningococcal B, OMV 2020-04-16 Completed [facility] 00:00:00 [facility] Meningococcal B, OMV 2020-04-16 Completed [facility] 00:00:00 [facility] Meningococcal B, OMV 2020-04-16 Completed [facility] 00:00:00 [facility] Meningococcal B, OMV 2020-04-16 Completed [facility] 00:00:00 [facility] Meningococcal B, OMV 2020-04-16 Completed [facility] 00:00:00 [facility] Meningococcal B, OMV 2020-04-16 Completed [facility] 00:00:00 [facility] Meningococcal B, OMV 2020-04-16 Completed [facility] 00:00:00 [facility] Meningococcal B, OMV 2020-04-16 Completed [facility] 00:00:00 [facility] Meningococcal 2018-10-07 Completed [facility] Polysaccharide 00:00:[address] [facility] (groups A, C, Y and Branc h W-135) conjugate vaccine (MCV4P) Meningococcal B, 2018-10-07 Completed [facility] Recombinant 00:00:00 [facility] Meningococcal 2018-10-07 Completed [facility] Polysaccharide 00:00:[address] [facility] (groups A, C, Y and Branc h W-135) conjugate vaccine (MCV4P) Meningococcal B, 2018-10-07 Completed [facility] Recombinant 00:00:00 [facility] Meningococcal 2018-10-07 Completed [facility] Polysaccharide 00:00:00 [facility] (groups A, C, Y and Branc h W-135) conjugate vaccine (MCV4P) Meningococcal B, 2018-10-07 Completed [facility] Recombinant 00:00:00 [facility] Meningococcal 2018-10-07 Completed [facility] Polysaccharide 00:00:[address] [facility] (groups A, C, Y and Branc h W-135) conjugate vaccine (MCV4P) Meningococcal B, 2018-10-07 Completed [facility] Recombinant 00:00:00 [facility] Meningococcal 2018-10-07 Completed [facility] Polysaccharide 00:00:00 [facility] (groups A, C, Y and Branc h W-135) conjugate vaccine (MCV4P) Meningococcal B, 2018-10-07 Completed [facility] Recombinant 00:00:00 [facility] Meningococcal 2018-10-07 Completed [facility] Polysaccharide 00:00:00 [facility] (groups A, C, Y and Branc h W-135) conjugate vaccine (MCV4P) Meningococcal B, 2018-10-07 Completed [facility] Recombinant 00:00:00 [facility] Meningococcal 2018-10-07 Completed [facility] Polysaccharide 00:00:00 [facility] (groups A, C, Y and Branc h W-135) conjugate vaccine (MCV4P) Meningococcal B, 2018-10-07 Completed [facility] Recombinant 00:00:00 [facility] Meningococcal 2018-10-07 Completed [facility] Polysaccharide 00:00:00 [facility] (groups A, C, Y and Branc h W-135) conjugate vaccine (MCV4P) Meningococcal B, 2018-10-07 Completed [facility] Recombinant 00:00:00 [facility] Meningococcal 2018-10-07 Completed [facility] Polysaccharide 00:00:00 [facility] (groups A, C, Y and Branc h W-135) conjugate vaccine (MCV4P) Meningococcal B, 2018-10-07 Completed [facility] Recombinant 00:00:00 [facility] Meningococcal 2018-10-07 Completed [facility] Polysaccharide 00:00:00 [facility] (groups A, C, Y and Branc h W-135) conjugate vaccine (MCV4P) Meningococcal B, 2018-10-07 Completed [facility] Recombinant 00:00:00 [facility] Meningococcal 2018-10-07 Completed [facility] Polysaccharide 00:00:00 [facility] (groups A, C, Y and Branc h W-135) conjugate vaccine (MCV4P) Meningococcal B, 2018-10-07 Completed [facility] Recombinant 00:00:00 [facility] Meningococcal 2018-10-07 Completed [facility] Polysaccharide 00:00:00 [facility] (groups A, C, Y and Branc h W-135) conjugate vaccine (MCV4P) Meningococcal B, 2018-10-07 Completed [facility] Recombinant 00:00:00 [facility] Meningococcal 2018-10-07 Completed [facility] Polysaccharide 00:00:00 [facility] (groups A, C, Y and Branc h W-135) conjugate vaccine (MCV4P) Meningococcal B, 2018-10-07 Completed [facility] Recombinant 00:00:00 [facility] Meningococcal 2018-10-07 Completed [facility] Polysaccharide 00:00:00 [facility] (groups A, C, Y and Branc h W-135) conjugate vaccine (MCV4P) Meningococcal B, 2018-10-07 Completed [facility] Recombinant 00:00:00 [facility] Meningococcal 2018-10-07 Completed [facility] Polysaccharide 00:00:00 [facility] (groups A, C, Y and Branc h W-135) conjugate vaccine (MCV4P) Meningococcal 2018-10-07 Completed [facility] Polysaccharide 00:00:00 [facility] (groups A, C, Y and Branc h W-135) conjugate vaccine (MCV4P) Meningococcal B, 2018-10-07 Completed [facility] Recombinant 00:00:00 [facility] Meningococcal B, 2018-10-07 Completed [facility] Recombinant 00:00:00 [facility] Meningococcal 2018-10-07 Completed [facility] Polysaccharide 00:00:00 [facility] (groups A, C, Y and Branc h W-135) conjugate vaccine (MCV4P) Meningococcal B, 2018-10-07 Completed [facility] Recombinant 00:00:00 [facility] Meningococcal 2018-10-07 Completed [facility] Polysaccharide 00:00:00 [facility] (groups A, C, Y and Branc h W-135) conjugate vaccine (MCV4P) Meningococcal B, 2018-10-07 Completed [facility] Recombinant 00:00:00 [facility] Meningococcal 2018-10-07 Completed [facility] Polysaccharide 00:00:00 [facility] (groups A, C, Y and Branc h W-135) conjugate vaccine (MCV4P) Meningococcal B, 2018-10-07 Completed [facility] Recombinant 00:00:00 [facility] Meningococcal 2018-10-07 Completed [facility] Polysaccharide 00:00:00 [facility] (groups A, C, Y and Branc h W-135) conjugate vaccine (MCV4P) Meningococcal B, 2018-10-07 Completed [facility] Recombinant 00:00:00 [facility] Meningococcal 2018-10-07 Completed [facility] Polysaccharide 00:00:00 [facility] (groups A, C, Y and Branc h W-135) conjugate vaccine (MCV4P) Meningococcal B, 2018-10-07 Completed [facility] Recombinant 00:00:00 [facility] Meningococcal 2018-10-07 Completed [facility] Polysaccharide 00:00:00 [facility] (groups A, C, Y and Branc h W-135) conjugate vaccine (MCV4P) Meningococcal B, 2018-10-07 Completed [facility] Recombinant 00:00:00 [facility] Meningococcal 2018-10-07 Completed [facility] Polysaccharide 00:00:00 [facility] (groups A, C, Y and Branc h W-135) conjugate vaccine (MCV4P) Meningococcal B, 2018-10-07 Completed [facility] Recombinant 00:00:00 [facility] Meningococcal 2018-10-07 Completed [facility] Polysaccharide 00:00:00 [facility] (groups A, C, Y and Branc h W-135) conjugate vaccine (MCV4P) Meningococcal B, 2018-10-07 Completed [facility] Recombinant 00:00:00 [facility] Meningococcal 2018-10-07 Completed [facility] Polysaccharide 00:00:00 [facility] (groups A, C, Y and Branc h W-135) conjugate vaccine (MCV4P) Meningococcal B, 2018-10-07 Completed [facility] Recombinant 00:00:00 [facility] Meningococcal 2018-10-07 Completed [facility] Polysaccharide 00:00:00 [facility] (groups A, C, Y and Branc h W-135) conjugate vaccine (MCV4P) Meningococcal B, 2018-10-07 Completed [facility] Recombinant 00:00:00 [facility] Meningococcal 2018-10-07 Completed [facility] Polysaccharide 00:00:00 [facility] (groups A, C, Y and Branc h W-135) conjugate vaccine (MCV4P) Meningococcal B, 2018-10-07 Completed [facility] Recombinant 00:00:00 [facility] Meningococcal 2018-10-07 Completed [facility] Polysaccharide 00:00:00 [facility] (groups A, C, Y and Branc h W-135) conjugate vaccine (MCV4P) Meningococcal B, 2018-10-07 Completed [facility] Recombinant 00:00:00 [facility] Meningococcal 2018-10-07 Completed [facility] Polysaccharide 00:00:00 [facility] (groups A, C, Y and Branc h W-135) conjugate vaccine (MCV4P) Meningococcal B, 2018-10-07 Completed [facility] Recombinant 00:00:00 [facility] Meningococcal 2018-10-07 Completed [facility] Polysaccharide 00:00:00 [facility] (groups A, C, Y and Branc h W-135) conjugate vaccine (MCV4P) Meningococcal B, 2018-10-07 Completed [facility] Recombinant 00:00:00 [facility] Meningococcal 2018-10-07 Completed [facility] Polysaccharide 00:00:00 [facility] (groups A, C, Y and Branc h W-135) conjugate vaccine (MCV4P) Meningococcal B, 2018-10-07 Completed [facility] Recombinant 00:00:00 [facility] Meningococcal 2018-10-07 Completed [facility] Polysaccharide 00:00:00 [facility] (groups A, C, Y and Branc h W-135) conjugate vaccine (MCV4P) Meningococcal B, 2018-10-07 Completed [facility] Recombinant 00:00:00 [facility] Meningococcal 2018-10-07 Completed [facility] Polysaccharide 00:00:00 [facility] (groups A, C, Y and Branc h W-135) conjugate vaccine (MCV4P) Meningococcal B, 2018-10-07 Completed [facility] Recombinant 00:00:00 [facility] Meningococcal 2018-10-07 Completed [facility] Polysaccharide 00:00:00 [facility] (groups A, C, Y and Branc h W-135) conjugate vaccine (MCV4P) Meningococcal B, 2018-10-07 Completed [facility] Recombinant 00:00:00 [facility] Meningococcal 2018-10-07 Completed [facility] Polysaccharide 00:00:00 [facility] (groups A, C, Y and Branc h W-135) conjugate vaccine (MCV4P) Meningococcal B, 2018-10-07 Completed [facility] Recombinant 00:00:00 [facility] Meningococcal 2018-10-07 Completed [facility] Polysaccharide 00:00:00 [facility] (groups A, C, Y and Branc h W-135) conjugate vaccine (MCV4P) Meningococcal B, 2018-10-07 Completed [facility] Recombinant 00:00:00 [facility] Meningococcal 2018-10-07 Completed [facility] Polysaccharide 00:00:00 [facility] (groups A, C, Y and Branc h W-135) conjugate vaccine (MCV4P) Meningococcal B, 2018-10-07 Completed [facility] Recombinant 00:00:00 [facility] Meningococcal 2018-10-07 Completed [facility] Polysaccharide 00:00:00 [facility] (groups A, C, Y and Branc h W-135) conjugate vaccine (MCV4P) Meningococcal B, 2018-10-07 Completed [facility] Recombinant 00:00:00 [facility] Meningococcal 2018-10-07 Completed [facility] Polysaccharide 00:00:00 [facility] (groups A, C, Y and Branc h W-135) conjugate vaccine (MCV4P) Meningococcal B, 2018-10-07 Completed [facility] Recombinant 00:00:00 [facility] Meningococcal 2018-10-07 Completed [facility] Polysaccharide 00:00:00 [facility] (groups A, C, Y and Branc h W-135) conjugate vaccine (MCV4P) Meningococcal B, 2018-10-07 Completed [facility] Recombinant 00:00:00 [facility] Meningococcal 2018-10-07 Completed [facility] Polysaccharide 00:00:00 [facility] (groups A, C, Y and Branc h W-135) conjugate vaccine (MCV4P) Meningococcal B, 2018-10-07 Completed [facility] Recombinant 00:00:00 [facility] Meningococcal 2018-10-07 Completed [facility] Polysaccharide 00:00:00 [facility] (groups A, C, Y and Branc h W-135) conjugate vaccine (MCV4P) Meningococcal B, 2018-10-07 Completed [facility] Recombinant 00:00:00 [facility] Meningococcal 2018-10-07 Completed [facility] Polysaccharide 00:00:00 [facility] (groups A, C, Y and Branc h W-135) conjugate vaccine (MCV4P) Meningococcal B, 2018-10-07 Completed [facility] Recombinant 00:00:00 [facility] Meningococcal 2018-10-07 Completed [facility] Polysaccharide 00:00:00 [facility] (groups A, C, Y and Branc h W-135) conjugate vaccine (MCV4P) Meningococcal B, 2018-10-07 Completed [facility] Recombinant 00:00:00 [facility] Meningococcal 2018-10-07 Completed [facility] Polysaccharide 00:00:00 [facility] (groups A, C, Y and Branc h W-135) conjugate vaccine (MCV4P) Meningococcal B, 2018-10-07 Completed [facility] Recombinant 00:00:00 [facility] Meningococcal 2018-10-07 Completed [facility] Polysaccharide 00:00:00 [facility] (groups A, C, Y and Branc h W-135) conjugate vaccine (MCV4P) Meningococcal B, 2018-10-07 Completed [facility] Recombinant 00:00:00 [facility] Meningococcal 2018-10-07 Completed [facility] Polysaccharide 00:00:00 [facility] (groups A, C, Y and Branc h W-135) conjugate vaccine (MCV4P) Meningococcal B, 2018-10-07 Completed [facility] Recombinant 00:00:00 [facility] Meningococcal 2018-10-07 Completed [facility] Polysaccharide 00:00:00 [facility] (groups A, C, Y and Branc h W-135) conjugate vaccine (MCV4P) Meningococcal B, 2018-10-07 Completed [facility] Recombinant 00:00:00 [facility] Meningococcal 2018-10-07 Completed [facility] Polysaccharide 00:00:00 [facility] (groups A, C, Y and Branc h W-135) conjugate vaccine (MCV4P) Meningococcal B, 2018-10-07 Completed [facility] Recombinant 00:00:00 [facility] Meningococcal 2018-10-07 Completed [facility] Polysaccharide 00:00:00 [facility] (groups A, C, Y and Branc h W-135) conjugate vaccine (MCV4P) Meningococcal B, 2018-10-07 Completed [facility] Recombinant 00:00:00 [facility] Meningococcal 2018-10-07 Completed [facility] Polysaccharide 00:00:00 [facility] (groups A, C, Y and Branc h W-135) conjugate vaccine (MCV4P) Meningococcal B, 2018-10-07 Completed [facility] Recombinant 00:00:00 [facility] Meningococcal 2018-10-07 Completed [facility] Polysaccharide 00:00:00 [facility] (groups A, C, Y and Branc h W-135) conjugate vaccine (MCV4P) Meningococcal B, 2018-10-07 Completed [facility] Recombinant 00:00:00 [facility] Meningococcal 2018-10-07 Completed [facility] Polysaccharide 00:00:00 [facility] (groups A, C, Y and Branc h W-135) conjugate vaccine (MCV4P) Meningococcal 2018-10-07 Completed [facility] Polysaccharide 00:00:00 [facility] (groups A, C, Y and Branc h W-135) conjugate vaccine (MCV4P) Meningococcal B, 2018-10-07 Completed [facility] Recombinant 00:00:00 [facility] Meningococcal B, 2018-10-07 Completed [facility] Recombinant 00:00:00 [facility] Meningococcal 2018-10-07 Completed [facility] Polysaccharide 00:00:00 [facility] (groups A, C, Y and Branc h W-135) conjugate vaccine (MCV4P) Meningococcal B, 2018-10-07 Completed [facility] Recombinant 00:00:00 [facility] Meningococcal 2018-10-07 Completed [facility] Polysaccharide 00:00:00 [facility] (groups A, C, Y and Branc h W-135) conjugate vaccine (MCV4P) Meningococcal B, 2018-10-07 Completed [facility] Recombinant 00:00:00 [facility] Meningococcal 2018-10-07 Completed [facility] Polysaccharide 00:00:00 [facility] (groups A, C, Y and Branc h W-135) conjugate vaccine (MCV4P) Meningococcal B, 2018-10-07 Completed [facility] Recombinant 00:00:00 [facility] Meningococcal 2018-10-07 Completed [facility] Polysaccharide 00:00:00 [facility] (groups A, C, Y and Branc h W-135) conjugate vaccine (MCV4P) Meningococcal B, 2018-10-07 Completed [facility] Recombinant 00:00:00 [facility] Meningococcal 2018-10-07 Completed [facility] Polysaccharide 00:00:00 [facility] (groups A, C, Y and Branc h W-135) conjugate vaccine (MCV4P) Meningococcal B, 2018-10-07 Completed [facility] Recombinant 00:00:00 [facility] Meningococcal 2018-10-07 Completed [facility] Polysaccharide 00:00:00 [facility] (groups A, C, Y and Branc h W-135) conjugate vaccine (MCV4P) Meningococcal B, 2018-10-07 Completed [facility] Recombinant 00:00:00 [facility] Meningococcal 2018-10-07 Completed [facility] Polysaccharide 00:00:00 [facility] (groups A, C, Y and Branc h W-135) conjugate vaccine (MCV4P) Meningococcal B, 2018-10-07 Completed [facility] Recombinant 00:00:00 [facility] Meningococcal 2018-10-07 Completed [facility] Polysaccharide 00:00:00 [facility] (groups A, C, Y and Branc h W-135) conjugate vaccine (MCV4P) Meningococcal B, 2018-10-07 Completed [facility] Recombinant 00:00:00 [facility] Meningococcal 2018-10-07 Completed [facility] Polysaccharide 00:00:00 [facility] (groups A, C, Y and Branc h W-135) conjugate vaccine (MCV4P) Meningococcal B, 2018-10-07 Completed [facility] Recombinant 00:00:00 [facility] Meningococcal 2018-10-07 Completed [facility] Polysaccharide 00:00:00 [facility] (groups A, C, Y and Branc h W-135) conjugate vaccine (MCV4P) Meningococcal B, 2018-10-07 Completed [facility] Recombinant 00:00:00 [facility] Meningococcal 2018-10-07 Completed [facility] Polysaccharide 00:00:00 [facility] (groups A, C, Y and Branc h W-135) conjugate vaccine (MCV4P) Meningococcal B, 2018-10-07 Completed [facility] Recombinant 00:00:00 [facility] Meningococcal 2018-10-07 Completed [facility] Polysaccharide 00:00:00 [facility] (groups A, C, Y and Branc h W-135) conjugate vaccine (MCV4P) Meningococcal B, 2018-10-07 Completed [facility] Recombinant 00:00:00 [facility] Meningococcal 2018-10-07 Completed [facility] Polysaccharide 00:00:00 [facility] (groups A, C, Y and Branc h W-135) conjugate vaccine (MCV4P) Meningococcal B, 2018-10-07 Completed [facility] Recombinant 00:00:00 [facility] Meningococcal 2018-10-07 Completed [facility] Polysaccharide 00:00:00 [facility] (groups A, C, Y and Branc h W-135) conjugate vaccine (MCV4P) Meningococcal B, 2018-10-07 Completed [facility] Recombinant 00:00:00 [facility] Meningococcal 2018-10-07 Completed [facility] Polysaccharide 00:00:00 [facility] (groups A, C, Y and Branc h W-135) conjugate vaccine (MCV4P) Meningococcal B, 2018-10-07 Completed [facility] Recombinant 00:00:00 [facility] Meningococcal 2018-10-07 Completed [facility] Polysaccharide 00:00:00 [facility] (groups A, C, Y and Branc h W-135) conjugate vaccine (MCV4P) Meningococcal B, 2018-10-07 Completed [facility] Recombinant 00:00:00 [facility] Meningococcal 2018-10-07 Completed [facility] Polysaccharide 00:00:00 [facility] (groups A, C, Y and Branc h W-135) conjugate vaccine (MCV4P) Meningococcal B, 2018-10-07 Completed [facility] Recombinant 00:00:00 [facility] Meningococcal 2018-10-07 Completed [facility] Polysaccharide 00:00:00 [facility] (groups A, C, Y and Branc h W-135) conjugate vaccine (MCV4P) Meningococcal B, 2018-10-07 Completed [facility] Recombinant 00:00:00 [facility] Meningococcal 2018-10-07 Completed [facility] Polysaccharide 00:00:00 [facility] (groups A, C, Y and Branc h W-135) conjugate vaccine (MCV4P) Meningococcal B, 2018-10-07 Completed [facility] Recombinant 00:00:00 [facility] Meningococcal 2018-10-07 Completed [facility] Polysaccharide 00:00:00 [facility] (groups A, C, Y and Branc h W-135) conjugate vaccine (MCV4P) Meningococcal B, 2018-10-07 Completed [facility] Recombinant 00:00:00 [facility] Meningococcal 2018-10-07 Completed [facility] Polysaccharide 00:00:00 [facility] (groups A, C, Y and Branc h W-135) conjugate vaccine (MCV4P) Meningococcal B, 2018-10-07 Completed [facility] Recombinant 00:00:00 [facility] Meningococcal 2018-10-07 Completed [facility] Polysaccharide 00:00:00 [facility] (groups A, C, Y and Branc h W-135) conjugate vaccine (MCV4P) Meningococcal B, 2018-10-07 Completed [facility] Recombinant 00:00:00 [facility] Meningococcal 2018-10-07 Completed [facility] Polysaccharide 00:00:00 [facility] (groups A, C, Y and Branc h W-135) conjugate vaccine (MCV4P) Meningococcal B, 2018-10-07 Completed [facility] Recombinant 00:00:00 [facility] Meningococcal 2018-10-07 Completed [facility] Polysaccharide 00:00:00 [facility] (groups A, C, Y and Branc h W-135) conjugate vaccine (MCV4P) Meningococcal B, 2018-10-07 Completed [facility] Recombinant 00:00:00 [facility] Meningococcal 2018-10-07 Completed [facility] Polysaccharide 00:00:00 [facility] (groups A, C, Y and Branc h W-135) conjugate vaccine (MCV4P) Meningococcal B, 2018-10-07 Completed [facility] Recombinant 00:00:00 [facility] Meningococcal 2018-10-07 Completed [facility] Polysaccharide 00:00:00 [facility] (groups A, C, Y and Branc h W-135) conjugate vaccine (MCV4P) Meningococcal B, 2018-10-07 Completed [facility] Recombinant 00:00:00 [facility] Meningococcal 2018-10-07 Completed [facility] Polysaccharide 00:00:00 [facility] (groups A, C, Y and Branc h W-135) conjugate vaccine (MCV4P) Meningococcal B, 2018-10-07 Completed [facility] Recombinant 00:00:00 [facility] Meningococcal 2018-10-07 Completed [facility] Polysaccharide 00:00:00 [facility] (groups A, C, Y and Branc h W-135) conjugate vaccine (MCV4P) Meningococcal B, 2018-10-07 Completed [facility] Recombinant 00:00:00 [facility] Meningococcal 2018-10-07 Completed [facility] Polysaccharide 00:00:00 [facility] (groups A, C, Y and Branc h W-135) conjugate vaccine (MCV4P) Meningococcal B, 2018-10-07 Completed [facility] Recombinant 00:00:00 [facility] Meningococcal 2018-10-07 Completed [facility] Polysaccharide 00:00:00 [facility] (groups A, C, Y and Branc h W-135) conjugate vaccine (MCV4P) Meningococcal B, 2018-10-07 Completed [facility] Recombinant 00:00:00 [facility] Meningococcal 2018-10-07 Completed [facility] Polysaccharide 00:00:00 [facility] (groups A, C, Y and Branc h W-135) conjugate vaccine (MCV4P) Meningococcal B, 2018-10-07 Completed [facility] Recombinant 00:00:00 [facility] Meningococcal 2018-10-07 Completed [facility] Polysaccharide 00:00:00 [facility] (groups A, C, Y and Branc h W-135) conjugate vaccine (MCV4P) Meningococcal B, 2018-10-07 Completed [facility] Recombinant 00:00:00 [facility] Meningococcal 2018-10-07 Completed [facility] Polysaccharide 00:00:00 [facility] (groups A, C, Y and Branc h W-135) conjugate vaccine (MCV4P) Meningococcal B, 2018-10-07 Completed [facility] Recombinant 00:00:00 [facility] Meningococcal 2018-10-07 Completed [facility] Polysaccharide 00:00:00 [facility] (groups A, C, Y and Branc h W-135) conjugate vaccine (MCV4P) Meningococcal B, 2018-10-07 Completed [facility] Recombinant 00:00:00 [facility] Meningococcal 2018-10-07 Completed [facility] Polysaccharide 00:00:00 [facility] (groups A, C, Y and Branc h W-135) conjugate vaccine (MCV4P) Meningococcal B, 2018-10-07 Completed [facility] Recombinant 00:00:00 [facility] Meningococcal 2018-10-07 Completed [facility] Polysaccharide 00:00:00 [facility] (groups A, C, Y and Branc h W-135) conjugate vaccine (MCV4P) Meningococcal B, 2018-10-07 Completed [facility] Recombinant 00:00:00 [facility] Meningococcal 2018-10-07 Completed [facility] Polysaccharide 00:00:00 [facility] (groups A, C, Y and Branc h W-135) conjugate vaccine (MCV4P) Meningococcal B, 2018-10-07 Completed [facility] Recombinant 00:00:00 [facility] Meningococcal 2018-10-07 Completed [facility] Polysaccharide 00:00:00 [place] [facility] (groups A, C, Y and Branc h W-135) conjugate vaccine (MCV4P) Meningococcal B, 2018-10-07 Completed [facility] Recombinant 00:00:00 [facility] Meningococcal 2018-10-07 Completed [facility] Polysaccharide 00:00:00 [place] [facility] (groups A, C, Y and Branc h W-135) conjugate vaccine (MCV4P) Meningococcal B, 2018-10-07 Completed [facility] Recombinant 00:00:00 [facility] Meningococcal 2018-10-07 Completed [facility] Polysaccharide 00:00:00 [place] [facility] (groups A, C, Y and Branc h W-135) conjugate vaccine (MCV4P) Meningococcal B, 2018-10-07 Completed [facility] Recombinant 00:00:00 [facility] Meningococcal 2018-10-07 Completed [facility] Polysaccharide 00:00:00 [facility] (groups A, C, Y and Branc h W-135) conjugate vaccine (MCV4P) Meningococcal B, 2018-10-07 Completed [facility] Recombinant 00:00:00 [facility] Meningococcal 2018-10-07 Completed [facility] Polysaccharide 00:00:00 [facility] (groups A, C, Y and Branc h W-135) conjugate vaccine (MCV4P) Meningococcal B, 2018-10-07 Completed [facility] Recombinant 00:00:00 [facility] Meningococcal 2018-10-07 Completed [facility] Polysaccharide 00:00:00 [facility] (groups A, C, Y and Branc h W-135) conjugate vaccine (MCV4P) Meningococcal B, 2018-10-07 Completed [facility] Recombinant 00:00:00 [facility] Meningococcal 2018-10-07 Completed [facility] Polysaccharide 00:00:00 [facility] (groups A, C, Y and Branc h W-135) conjugate vaccine (MCV4P) Meningococcal B, 2018-10-07 Completed [facility] Recombinant 00:00:00 [facility] Meningococcal 2018-10-07 Completed [facility] Polysaccharide 00:00:00 [facility] (groups A, C, Y and Branc h W-135) conjugate vaccine (MCV4P) Meningococcal B, 2018-10-07 Completed [facility] Recombinant 00:00:00 [facility] Meningococcal 2018-10-07 Completed [facility] Polysaccharide 00:00:00 [place] [facility] (groups A, C, Y and Branc h W-135) conjugate vaccine (MCV4P) Meningococcal B, 2018-10-07 Completed [facility] Recombinant 00:00:00 [facility] Meningococcal 2018-10-07 Completed [facility] Polysaccharide 00:00:[address] [facility] (groups A, C, Y and Branc h W-135) conjugate vaccine (MCV4P) Meningococcal B, 2018-10-07 Completed [facility] Recombinant 00:00:00 [facility] Influenza Virus 2018-04-06 Completed [facility] [...] 00:00:00 [facility] (FLUZONE/FLULAVAL/FLU ARIX) Influenza Virus 2018-04-06 Completed [facility] Vaccine Quad .5 mL IM 00:00:00 [facility] (FLUZONE/FLULAVAL/FLU ARIX) Influenza Virus 2018-04-06 Completed [facility] [...] (MCV4P) Tdap 2013-04-18 Completed [facility] 00:00:00 [facility] Meningococcal 2013-04-18 Completed [facility] Polysaccharide 00:00:00 [facility] (groups A, C, Y and Branc h W-135) conjugate vaccine (MCV4P) Meningococcal 2013-04-18 Completed [facility] Polysaccharide 00:00:00 [facility] (groups A, C, Y and Branc h W-135) conjugate vaccine (MCV4P) Tdap 2013-04-18 Completed [facility] 00:00:00 [facility] Meningococcal 2013-04-18 Completed [facility] Polysaccharide 00:00:00 [facility] (groups A, C, Y and Branc h W-135) conjugate vaccine (MCV4P) Tdap 2013-04-18 Completed [facility] 00:00:00 [facility] Tdap 2013-04-18 Completed [facility] 00:00:00 [facility] Meningococcal 2013-04-18 Completed [facility] Polysaccharide 00:00:00 [facility] (groups A, C, Y and Branc h W-135) conjugate vaccine (MCV4P) Tdap 2013-04-18 Completed [facility] 00:00:00 [facility] Meningococcal 2013-04-18 Completed [facility] Polysaccharide 00:00:00 [facility] (groups A, C, Y and Branc h W-135) conjugate vaccine (MCV4P) Tdap 2013-04-18 Completed [facility] 00:00:00 [facility] Meningococcal 2013-04-18 Completed [facility] Polysaccharide 00:00:00 [facility] (groups A, C, Y and Branc h W-135) conjugate vaccine (MCV4P) Tdap 2013-04-18 Completed [facility] 00:00:00 [facility] Meningococcal 2013-04-18 Completed [facility] Polysaccharide 00:00:00 [facility] (groups A, C, Y and Branc h W-135) conjugate vaccine (MCV4P) Tdap 2013-04-18 Completed [facility] 00:00:00 [facility] Meningococcal 2013-04-18 Completed [facility] Polysaccharide 00:00:00 [facility] (groups A, C, Y and Branc h W-135) conjugate vaccine (MCV4P) Tdap 2013-04-18 Completed [facility] 00:00:00 [facility] Meningococcal 2013-04-18 Completed [facility] Polysaccharide 00:00:00 [facility] (groups A, C, Y and Branc h W-135) conjugate vaccine (MCV4P) TDAP 2013-04-18 Completed [facility] 00:00:00 [facility] Meningococcal 2013-04-18 Completed [facility] Polysaccharide 00:00:00 [facility] (groups A, C, Y and Branc h W-135) conjugate vaccine (MCV4P) TDAP 2013-04-18 Completed [facility] 00:00:00 [facility] Meningococcal 2013-04-18 Completed [facility] Polysaccharide 00:00:00 [facility] (groups A, C, Y and Branc h W-135) conjugate vaccine (MCV4P) Meningococcal 2013-04-18 Completed [facility] Polysaccharide 00:00:00 [facility] (groups A, C, Y and Branc h W-135) conjugate vaccine (MCV4P) TDAP 2013-04-18 Completed [facility] 00:00:00 [facility] Meningococcal 2013-04-18 Completed [facility] Polysaccharide 00:00:00 [facility] (groups A, C, Y and Branc h W-135) conjugate vaccine (MCV4P) TDAP 2013-04-18 Completed [facility] 00:00:00 [facility] Tdap 2013-04-18 Completed [facility] 00:00:00 [facility] Meningococcal 2013-04-18 Completed [facility] Polysaccharide 00:00:00 [facility] (groups A, C, Y and Branc h W-135) conjugate vaccine (MCV4P) TDAP 2013-04-18 Completed [facility] 00:00:00 [facility] Meningococcal 2013-04-18 Completed [facility] Polysaccharide 00:00:00 [facility] (groups A, C, Y and Branc h W-135) conjugate vaccine (MCV4P) TDAP 2013-04-18 Completed [facility] 00:00:00 [facility] Meningococcal 2013-04-18 Completed [facility] Polysaccharide 00:00:00 [facility] (groups A, C, Y and Branc h W-135) conjugate vaccine (MCV4P) TDAP 2013-04-18 Completed [facility] 00:00:00 [facility] Meningococcal 2013-04-18 Completed [facility] Polysaccharide 00:00:00 [facility] (groups A, C, Y and Branc h W-135) conjugate vaccine (MCV4P) TDAP 2013-04-18 Completed [facility] 00:00:00 [facility] Meningococcal 2013-04-18 Completed [facility] Polysaccharide 00:00:00 [facility] (groups A, C, Y and Branc h W-135) conjugate vaccine (MCV4P) TDAP 2013-04-18 Completed [facility] 00:00:00 [facility] Meningococcal 2013-04-18 Completed [facility] Polysaccharide 00:00:00 [facility] (groups A, C, Y and Branc h W-135) conjugate vaccine (MCV4P) TDAP 2013-04-18 Completed [facility] 00:00:00 [facility] Meningococcal 2013-04-18 Completed [facility] Polysaccharide 00:00:00 [facility] (groups A, C, Y and Branc h W-135) conjugate vaccine (MCV4P) TDAP 2013-04-18 Completed [facility] 00:00:00 [facility] Meningococcal 2013-04-18 Completed [facility] Polysaccharide 00:00:00 [place] [facility] (groups A, C, Y and Branc h W-135) conjugate vaccine (MCV4P) TDAP 2013-04-18 Completed [facility] 00:00:00 [facility] Meningococcal 2013-04-18 Completed [facility] Polysaccharide 00:00:00 [facility] (groups A, C, Y and Branc h W-135) conjugate vaccine (MCV4P) TDAP 2013-04-18 Completed [facility] 00:00:00 [facility] Meningococcal 2013-04-18 Completed [facility] Polysaccharide 00:00:00 [place] [facility] (groups A, C, Y and Branc h W-135) conjugate vaccine (MCV4P) Meningococcal 2013-04-18 Completed [facility] Polysaccharide 00:00:00 [facility] (groups A, C, Y and Branc h W-135) conjugate vaccine (MCV4P) TDAP 2013-04-18 Completed [facility] 00:00:00 [facility] Meningococcal 2013-04-18 Completed [facility] Polysaccharide 00:00:00 [facility] (groups A, C, Y and Branc h W-135) conjugate vaccine (MCV4P) Tdap 2013-04-18 Completed [facility] 00:00:00 [facility] TDAP 2013-04-18 Completed [facility] 00:00:00 [facility] Meningococcal 2013-04-18 Completed [facility] Polysaccharide 00:00:00 [facility] (groups A, C, Y and Branc h W-135) conjugate vaccine (MCV4P) TDAP 2013-04-18 Completed [facility] 00:00:00 [facility] Meningococcal 2013-04-18 Completed [facility] Polysaccharide 00:00:00 [facility] (groups A, C, Y and Branc h W-135) conjugate vaccine (MCV4P) TDAP 2013-04-18 Completed [facility] 00:00:00 [facility] Meningococcal 2013-04-18 Completed [facility] Polysaccharide 00:00:00 [place] [facility] (groups A, C, Y and Branc h W-135) conjugate vaccine (MCV4P) TDAP 2013-04-18 Completed [facility] 00:00:00 [facility] Meningococcal 2013-04-18 Completed [facility] Polysaccharide 00:00:00 [facility] (groups A, C, Y and Branc h W-135) conjugate vaccine (MCV4P) TDAP 2013-04-18 Completed [facility] 00:00:00 [facility] Meningococcal 2013-04-18 Completed [facility] Polysaccharide 00:00:00 [facility] (groups A, C, Y and Branc h W-135) conjugate vaccine (MCV4P) TDAP 2013-04-18 Completed [facility] 00:00:00 [facility] Meningococcal 2013-04-18 Completed [facility] Polysaccharide 00:00:00 [facility] (groups A, C, Y and Branc h W-135) conjugate vaccine (MCV4P) TDAP 2013-04-18 Completed [facility] 00:00:00 [facility] Meningococcal 2013-04-18 Completed [facility] Polysaccharide 00:00:00 [place] [facility] (groups A, C, Y and Branc h W-135) conjugate vaccine (MCV4P) Meningococcal 2013-04-18 Completed [facility] Polysaccharide 00:00:00 [facility] (groups A, C, Y and Branc h W-135) conjugate vaccine (MCV4P) TDAP 2013-04-18 Completed [facility] 00:00:00 [facility] Tdap 2013-04-18 Completed [facility] 00:00:00 [facility] Meningococcal 2013-04-18 Completed [facility] Polysaccharide 00:00:00 [facility] (groups A, C, Y and Branc h W-135) conjugate vaccine (MCV4P) TDAP 2013-04-18 Completed [facility] 00:00:00 [facility] Meningococcal 2013-04-18 Completed [facility] Polysaccharide 00:00:00 [facility] (groups A, C, Y and Branc h W-135) conjugate vaccine (MCV4P) TDAP 2013-04-18 Completed [facility] 00:00:00 [facility] Meningococcal 2013-04-18 Completed [facility] Polysaccharide 00:00:00 [facility] (groups A, C, Y and Branc h W-135) conjugate vaccine (MCV4P) TDAP 2013-04-18 Completed [facility] 00:00:00 [facility] Meningococcal 2013-04-18 Completed [facility] Polysaccharide 00:00:00 [facility] (groups A, C, Y and Branc h W-135) conjugate vaccine (MCV4P) TDAP 2013-04-18 Completed [facility] 00:00:00 [facility] Meningococcal 2013-04-18 Completed [facility] Polysaccharide 00:00:00 [place] [facility] (groups A, C, Y and Branc h W-135) conjugate vaccine (MCV4P) TDAP 2013-04-18 Completed [facility] 00:00:00 [facility] Meningococcal 2013-04-18 Completed [facility] Polysaccharide 00:00:00 [facility] (groups A, C, Y and Branc h W-135) conjugate vaccine (MCV4P) TDAP 2013-04-18 Completed [facility] 00:00:00 [facility] Meningococcal 2013-04-18 Completed [facility] Polysaccharide 00:00:00 [facility] (groups A, C, Y and Branc h W-135) conjugate vaccine (MCV4P) TDAP 2013-04-18 Completed [facility] 00:00:00 [facility] Meningococcal 2013-04-18 Completed [facility] Polysaccharide 00:00:00 [facility] (groups A, C, Y and Branc h W-135) conjugate vaccine (MCV4P) TDAP 2013-04-18 Completed [facility] 00:00:00 [facility] Meningococcal 2013-04-18 Completed [facility] Polysaccharide 00:00:00 [facility] (groups A, C, Y and Branc h W-135) conjugate vaccine (MCV4P) Meningococcal 2013-04-18 Completed [facility] Polysaccharide 00:00:00 [facility] (groups A, C, Y and Branc h W-135) conjugate vaccine (MCV4P) TDAP 2013-04-18 Completed [facility] 00:00:00 [facility] Meningococcal 2013-04-18 Completed [facility] Polysaccharide 00:00:00 [facility] (groups A, C, Y and Branc h W-135) conjugate vaccine (MCV4P) TDAP 2013-04-18 Completed [facility] 00:00:00 [facility] Tdap 2013-04-18 Completed [facility] 00:00:00 [facility] Meningococcal 2013-04-18 Completed [facility] Polysaccharide 00:00:00 [facility] (groups A, C, Y and Branc h W-135) conjugate vaccine (MCV4P) TDAP 2013-04-18 Completed [facility] 00:00:00 [facility] Meningococcal 2013-04-18 Completed [facility] Polysaccharide 00:00:00 [facility] (groups A, C, Y and Branc h W-135) conjugate vaccine (MCV4P) TDAP 2013-04-18 Completed [facility] 00:00:00 [facility] Meningococcal 2013-04-18 Completed [facility] Polysaccharide 00:00:00 [facility] (groups A, C, Y and Branc h W-135) conjugate vaccine (MCV4P) TDAP 2013-04-18 Completed [facility] 00:00:00 [facility] Meningococcal 2013-04-18 Completed [facility] Polysaccharide 00:00:00 [facility] (groups A, C, Y and Branc h W-135) conjugate vaccine (MCV4P) TDAP 2013-04-18 Completed [facility] 00:00:00 [facility] Meningococcal 2013-04-18 Completed [facility] Polysaccharide 00:00:00 [place] [facility] (groups A, C, Y and Branc h W-135) conjugate vaccine (MCV4P) Meningococcal 2013-04-18 Completed [facility] Polysaccharide 00:00:00 [facility] (groups A, C, Y and Branc h W-135) conjugate vaccine (MCV4P) TDAP 2013-04-18 Completed [facility] 00:00:00 [facility] Meningococcal 2013-04-18 Completed [facility] Polysaccharide 00:00:00 [facility] (groups A, C, Y and Branc h W-135) conjugate vaccine (MCV4P) TDAP 2013-04-18 Completed [facility] 00:00:00 [facility] Tdap 2013-04-18 Completed [facility] 00:00:00 [facility] Meningococcal 2013-04-18 Completed [facility] Polysaccharide 00:00:00 [facility] (groups A, C, Y and Branc h W-135) conjugate vaccine (MCV4P) TDAP 2013-04-18 Completed [facility] 00:00:00 [facility] Meningococcal 2013-04-18 Completed [facility] Polysaccharide 00:00:00 [facility] (groups A, C, Y and Branc h W-135) conjugate vaccine (MCV4P) TDAP 2013-04-18 Completed [facility] 00:00:00 [facility] Meningococcal 2013-04-18 Completed [facility] Polysaccharide 00:00:00 [place] [facility] (groups A, C, Y and Branc h W-135) conjugate vaccine (MCV4P) TDAP 2013-04-18 Completed [facility] 00:00:00 [facility] Meningococcal 2013-04-18 Completed [facility] Polysaccharide 00:00:00 [facility] (groups A, C, Y and Branc h W-135) conjugate vaccine (MCV4P) TDAP 2013-04-18 Completed [facility] 00:00:00 [facility] Meningococcal 2013-04-18 Completed [facility] Polysaccharide 00:00:00 [facility] (groups A, C, Y and Branc h W-135) conjugate vaccine (MCV4P) TDAP 2013-04-18 Completed [facility] 00:00:00 [facility] Meningococcal 2013-04-18 Completed [facility] Polysaccharide 00:00:00 [facility] (groups A, C, Y and Branc h W-135) conjugate vaccine (MCV4P) TDAP 2013-04-18 Completed [facility] 00:00:00 [facility] Meningococcal 2013-04-18 Completed [facility] Polysaccharide 00:00:00 [facility] (groups A, C, Y and Branc h W-135) conjugate vaccine (MCV4P) Meningococcal 2013-04-18 Completed [facility] Polysaccharide 00:00:00 [facility] (groups A, C, Y and Branc h W-135) conjugate vaccine (MCV4P) TDAP 2013-04-18 Completed [facility] 00:00:00 [facility] Meningococcal 2013-04-18 Completed [facility] Polysaccharide 00:00:00 [facility] (groups A, C, Y and Branc h W-135) conjugate vaccine (MCV4P) TDAP 2013-04-18 Completed [facility] 00:00:00 [facility] Tdap 2013-04-18 Completed [facility] 00:00:00 [facility] Meningococcal 2013-04-18 Completed [facility] Polysaccharide 00:00:00 [facility] (groups A, C, Y and Branc h W-135) conjugate vaccine (MCV4P) TDAP 2013-04-18 Completed [facility] 00:00:00 [facility] Meningococcal 2013-04-18 Completed [facility] Polysaccharide 00:00:00 [facility] (groups A, C, Y and Branc h W-135) conjugate vaccine (MCV4P) TDAP 2013-04-18 Completed [facility] 00:00:00 [facility] Meningococcal 2013-04-18 Completed [facility] Polysaccharide 00:00:00 [place] [facility] (groups A, C, Y and Branc h W-135) conjugate vaccine (MCV4P) TDAP 2013-04-18 Completed [facility] 00:00:00 [facility] Meningococcal 2013-04-18 Completed [facility] Polysaccharide 00:00:00 [place] [facility] (groups A, C, Y and Branc h W-135) conjugate vaccine (MCV4P) TDAP 2013-04-18 Completed [facility] 00:00:00 [facility] Meningococcal 2013-04-18 Completed [facility] Polysaccharide 00:00:00 [place] [facility] (groups A, C, Y and Branc h W-135) conjugate vaccine (MCV4P) TDAP 2013-04-18 Completed [facility] 00:00:00 [facility] Meningococcal 2013-04-18 Completed [facility] Polysaccharide 00:00:00 [place] [facility] (groups A, C, Y and Branc h W-135) conjugate vaccine (MCV4P) TDAP 2013-04-18 Completed [facility] 00:00:00 [facility] Meningococcal 2013-04-18 Completed [facility] Polysaccharide 00:00:00 [place] [facility] (groups A, C, Y and Branc h W-135) conjugate vaccine (MCV4P) TDAP 2013-04-18 Completed [facility] 00:00:00 [facility] Meningococcal 2013-04-18 Completed [facility] Polysaccharide 00:00:00 [place] [facility] (groups A, C, Y and Branc h W-135) conjugate vaccine (MCV4P) Meningococcal 2013-04-18 Completed [facility] Polysaccharide 00:00:00 [place] [facility] (groups A, C, Y and Branc h W-135) conjugate vaccine (MCV4P) TDAP 2013-04-18 Completed [facility] 00:00:00 [facility] Tdap 2013-04-18 Completed [facility] 00:00:00 [facility] Meningococcal 2013-04-18 Completed [facility] Polysaccharide 00:00:00 [place] [facility] (groups A, C, Y and Branc h W-135) conjugate vaccine (MCV4P) TDAP 2013-04-18 Completed [facility] 00:00:00 [facility] Meningococcal 2013-04-18 Completed [facility] Polysaccharide 00:00:00 [place] [facility] (groups A, C, Y and Branc h W-135) conjugate vaccine (MCV4P) TDAP 2013-04-18 Completed [facility] 00:00:00 [facility] Meningococcal 2013-04-18 Completed [facility] Polysaccharide 00:00:00 [place] [facility] (groups A, C, Y and Branc h W-135) conjugate vaccine (MCV4P) TDAP 2013-04-18 Completed [facility] 00:00:00 [facility] Meningococcal 2013-04-18 Completed [facility] Polysaccharide 00:00:00 [place] [facility] (groups A, C, Y and Branc h W-135) conjugate vaccine (MCV4P) TDAP 2013-04-18 Completed [facility] 00:00:00 [facility] Meningococcal 2013-04-18 Completed [facility] Polysaccharide 00:00:00 [place] [facility] (groups A, C, Y and Branc h W-135) conjugate vaccine (MCV4P) TDAP 2013-04-18 Completed [facility] 00:00:00 [facility] Meningococcal 2013-04-18 Completed [facility] Polysaccharide 00:00:00 [place] [facility] (groups A, C, Y and Branc h W-135) conjugate vaccine (MCV4P) TDAP 2013-04-18 Completed [facility] 00:00:00 [facility] Meningococcal 2013-04-18 Completed [facility] Polysaccharide 00:00:00 [place] [facility] (groups A, C, Y and Branc h W-135) conjugate vaccine (MCV4P) TDAP 2013-04-18 Completed [facility] 00:00:00 [facility] Meningococcal 2013-04-18 Completed [facility] Polysaccharide 00:00:00 [place] [facility] (groups A, C, Y and Branc h W-135) conjugate vaccine (MCV4P) Meningococcal 2013-04-18 Completed [facility] Polysaccharide 00:00:00 [place] [facility] (groups A, C, Y and Branc h W-135) conjugate vaccine (MCV4P) TDAP 2013-04-18 Completed [facility] 00:00:00 [facility] Tdap 2013-04-18 Completed [facility] 00:00:00 [facility] Meningococcal 2013-04-18 Completed [facility] Polysaccharide 00:00:00 [place] [facility] (groups A, C, Y and Branc h W-135) conjugate vaccine (MCV4P) TDAP 2013-04-18 Completed [facility] 00:00:00 [facility] Meningococcal 2013-04-18 Completed [facility] Polysaccharide 00:00:00 [place] [facility] (groups A, C, Y and Branc h W-135) conjugate vaccine (MCV4P) TDAP 2013-04-18 Completed [facility] 00:00:00 [facility] Meningococcal 2013-04-18 Completed [facility] Polysaccharide 00:00:00 [place] [facility] (groups A, C, Y and Branc h W-135) conjugate vaccine (MCV4P) TDAP 2013-04-18 Completed [facility] 00:00:00 [facility] Meningococcal 2013-04-18 Completed [facility] Polysaccharide 00:00:00 [place] [facility] (groups A, C, Y and Branc h W-135) conjugate vaccine (MCV4P) TDAP 2013-04-18 Completed [facility] 00:00:00 [facility] Meningococcal 2013-04-18 Completed [facility] Polysaccharide 00:00:00 [place] [facility] (groups A, C, Y and Branc h W-135) conjugate vaccine (MCV4P) TDAP 2013-04-18 Completed [facility] 00:00:00 [facility] Meningococcal 2013-04-18 Completed [facility] Polysaccharide 00:00:00 [place] [facility] (groups A, C, Y and Branc h W-135) conjugate vaccine (MCV4P) TDAP 2013-04-18 Completed [facility] 00:00:00 [facility] Meningococcal 2013-04-18 Completed [facility] Polysaccharide 00:00:00 [place] [facility] (groups A, C, Y and Branc h W-135) conjugate vaccine (MCV4P) TDAP 2013-04-18 Completed [facility] 00:00:00 [facility] Meningococcal 2013-04-18 Completed [facility] Polysaccharide 00:00:00 [place] [facility] (groups A, C, Y and Branc h W-135) conjugate vaccine (MCV4P) Tdap 2013-04-18 Completed [facility] 00:00:00 [facility] Meningococcal 2013-04-18 Completed [facility] Polysaccharide 00:00:00 [place] [facility] (groups A, C, Y and Branc h W-135) conjugate vaccine (MCV4P) Tdap 2013-04-18 Completed [facility] 00:00:00 [facility] Meningococcal 2013-04-18 Completed [facility] Polysaccharide 00:00:00 [place] [facility] (groups A, C, Y and Branc h W-135) conjugate vaccine (MCV4P) Tdap 2013-04-18 Completed [facility] 00:00:00 [facility] Meningococcal 2013-04-18 Completed [facility] Polysaccharide 00:00:00 [place] [facility] (groups A, C, Y and Branc h W-135) conjugate vaccine (MCV4P) Tdap 2013-04-18 Completed [facility] 00:00:00 [facility] Meningococcal 2013-04-18 Completed [facility] Polysaccharide 00:00:00 [place] [facility] (groups A, C, Y and Branc h W-135) conjugate vaccine (MCV4P) Meningococcal 2013-04-18 Completed [facility] Polysaccharide 00:00:00 [place] [facility] (groups A, C, Y and Branc h W-135) conjugate vaccine (MCV4P) Tdap 2013-04-18 Completed [facility] 00:00:00 [facility] Tdap 2013-04-18 Completed [facility] 00:00:00 [facility] Meningococcal 2013-04-18 Completed [facility] Polysaccharide 00:00:00 [place] [facility] (groups A, C, Y and Branc h W-135) conjugate vaccine (MCV4P) Tdap 2013-04-18 Completed [facility] 00:00:00 [facility] Meningococcal 2013-04-18 Completed [facility] Polysaccharide 00:00:00 [place] [facility] (groups A, C, Y and Branc h W-135) conjugate vaccine (MCV4P) Tdap 2013-04-18 Completed [facility] 00:00:00 [facility] Meningococcal 2013-04-18 Completed [facility] Polysaccharide 00:00:00 [place] [facility] (groups A, C, Y and Branc h W-135) conjugate vaccine (MCV4P) Tdap 2013-04-18 Completed [facility] 00:00:00 [facility] Meningococcal 2013-04-18 Completed [facility] Polysaccharide 00:00:00 [place] [facility] (groups A, C, Y and Branc h W-135) conjugate vaccine (MCV4P) Tdap 2013-04-18 Completed [facility] 00:00:00 [facility] Meningococcal 2013-04-18 Completed [facility] Polysaccharide 00:00:00 [place] [facility] (groups A, C, Y and Branc h W-135) conjugate vaccine (MCV4P) Tdap 2013-04-18 Completed [facility] 00:00:00 [facility] Meningococcal 2013-04-18 Completed [facility] Polysaccharide 00:00:00 [place] [facility] (groups A, C, Y and Branc h W-135) conjugate vaccine (MCV4P) Tdap 2013-04-18 Completed [facility] 00:00:00 [facility] Meningococcal 2013-04-18 Completed [facility] Polysaccharide 00:00:00 [place] [facility] (groups A, C, Y and Branc h W-135) conjugate vaccine (MCV4P) Tdap 2013-04-18 Completed [facility] 00:00:00 [facility] Meningococcal 2013-04-18 Completed [facility] Polysaccharide 00:00:00 [place] [facility] (groups A, C, Y and Branc h W-135) conjugate vaccine (MCV4P) Tdap 2013-04-18 Completed [facility] 00:00:00 [facility] Meningococcal 2013-04-18 Completed [facility] Polysaccharide 00:00:00 [place] [facility] (groups A, C, Y and Branc h W-135) conjugate vaccine (MCV4P) Tdap 2013-04-18 Completed [facility] 00:00:00 [facility] HPV 2012-11-29 Completed [facility] 00:00:00 [facility] HPV 2012-11-29 Completed [facility] 00:00:00 [facility] HPV 2012-11-29 Completed [facility] 00:00:00 [facility] HPV 2012-11-29 Completed [facility] 00:00:00 [facility] HPV 2012-11-29 Completed [facility] 00:00:00 [facility] HPV 2012-11-29 Completed [facility] 00:00:00 [facility] HPV 2012-11-29 Completed [facility] 00:00:00 [facility] HPV 2012-11-29 Completed [facility] [...] Branch HPV 2011-04-07 Completed [facility] 00:00:00 [facility] HPV 2011-04-07 Completed [facility] [...] Branch HPV 2011-04-07 Completed [facility] 00:00:00 [facility] HPV 2011-04-07 Completed [facility] 00:00:00 [facility] HPV 2011-04-07 Completed [facility] 00:00:00 [facility] Polio (IPV/OPV) 2006-04-20 Completed [facility] 00:00:00 [facility] Varicella 2006-04-20 Completed [facility] (varivax)(chicken 00:00:00 [place] [facility] pox) [facility] DTAP 2006-04-20 Completed [facility] 00:00:00 [facility] MMR 2006-04-20 Completed [facility] 00:00:00 [facility] Polio (IPV/OPV) 2006-04-20 Completed [facility] 00:00:00 [facility] Varicella 2006-04-20 Completed [facility] (varivax)(chicken 00:00:00 [place] [facility] DTAP 2006-04-20 Completed [facility] 00:00:00 [facility] MMR 2006-04-20 Completed [facility] 00:00:00 [facility] Polio (IPV/OPV) 2006-04-20 Completed [facility] 00:00:00 [facility] Polio (IPV/OPV) 2006-04-20 Completed [facility] 00:00:00 [facility] Varicella 2006-04-20 Completed [facility] (varivax)(chicken 00:00:00 [place] [facility] DTAP 2006-04-20 Completed [facility] 00:00:00 [facility] MMR 2006-04-20 Completed [facility] 00:00:00 [facility] Varicella 2006-04-20 Completed [facility] (varivax)(chicken 00:00:00 [place] [facility] DTAP 2006-04-20 Completed [facility] 00:00:00 [facility] MMR 2006-04-20 Completed [facility] 00:00:00 [facility] Polio (IPV/OPV) 2006-04-20 Completed [facility] 00:00:00 [facility] Varicella 2006-04-20 Completed [facility] (varivax)(chicken 00:00:00 [place] [facility] DTAP 2006-04-20 Completed [facility] 00:00:00 [facility] MMR 2006-04-20 Completed [facility] 00:00:00 [facility] Polio (IPV/OPV) 2006-04-20 Completed [facility] 00:00:00 [facility] Varicella 2006-04-20 Completed [facility] (varivax)(chicken 00:00:00 [place] [facility] DTAP 2006-04-20 Completed [facility] 00:00:00 [facility] MMR 2006-04-20 Completed [facility] 00:00:00 [facility] Polio (IPV/OPV) 2006-04-20 Completed [facility] 00:00:00 [facility] Varicella 2006-04-20 Completed [facility] (varivax)(chicken 00:00:00 [place] [facility] DTAP 2006-04-20 Completed [facility] 00:00:00 [facility] MMR 2006-04-20 Completed [facility] 00:00:00 [facility] Polio (IPV/OPV) 2006-04-20 Completed [facility] 00:00:00 [facility] Varicella 2006-04-20 Completed [facility] (varivax)(chicken 00:00:00 [place] [facility] DTAP 2006-04-20 Completed [facility] 00:00:00 [facility] MMR 2006-04-20 Completed [facility] 00:00:00 [facility] Polio (IPV/OPV) 2006-04-20 Completed [facility] 00:00:00 [facility] Varicella 2006-04-20 Completed [facility] (varivax)(chicken 00:00:00 [place] [facility] DTAP 2006-04-20 Completed [facility] 00:00:00 [facility] MMR 2006-04-20 Completed [facility] 00:00:00 [facility] Polio (IPV/OPV) 2006-04-20 Completed [facility] 00:00:00 [facility] Varicella 2006-04-20 Completed [facility] (varivax)(chicken 00:00:00 [place] [facility] DTAP 2006-04-20 Completed [facility] 00:00:00 [facility] MMR 2006-04-20 Completed [facility] 00:00:00 [facility] Polio (IPV/OPV) 2006-04-20 Completed [facility] 00:00:00 [facility] Varicella 2006-04-20 Completed [facility] (varivax)(chicken 00:00:00 [place] [facility] DTAP 2006-04-20 Completed [facility] 00:00:00 [facility] MMR 2006-04-20 Completed [facility] 00:00:00 [facility] Polio (IPV/OPV) 2006-04-20 Completed [facility] 00:00:00 [facility] Varicella 2006-04-20 Completed [facility] (varivax)(chicken 00:00:00 [place] [facility] DTAP 2006-04-20 Completed [facility] 00:00:00 [facility] MMR 2006-04-20 Completed [facility] 00:00:00 [facility] Polio (IPV/OPV) 2006-04-20 Completed [facility] 00:00:00 [facility] Polio (IPV/OPV) 2006-04-20 Completed [facility] 00:00:00 [facility] Varicella 2006-04-20 Completed [facility] (varivax)(chicken 00:00:00 [place] [facility] DTAP 2006-04-20 Completed [facility] 00:00:00 [facility] MMR 2006-04-20 Completed [facility] 00:00:00 [facility] Varicella 2006-04-20 Completed [facility] (varivax)(chicken 00:00:00 [place] [facility] DTAP 2006-04-20 Completed [facility] 00:00:00 [facility] Polio (IPV/OPV) 2006-04-20 Completed [facility] 00:00:00 [facility] Varicella 2006-04-20 Completed [facility] (varivax)(chicken 00:00:00 [place] [facility] DTAP 2006-04-20 Completed [facility] 00:00:00 [facility] MMR 2006-04-20 Completed [facility] 00:00:00 [facility] MMR 2006-04-20 Completed [facility] 00:00:00 [facility] Polio (IPV/OPV) 2006-04-20 Completed [facility] 00:00:00 [facility] Varicella 2006-04-20 Completed [facility] (varivax)(chicken 00:00:00 [place] [facility] DTAP 2006-04-20 Completed [facility] 00:00:00 [facility] MMR 2006-04-20 Completed [facility] 00:00:00 [facility] Polio (IPV/OPV) 2006-04-20 Completed [facility] 00:00:00 [facility] Varicella 2006-04-20 Completed [facility] (varivax)(chicken 00:00:00 [place] [facility] pox) [facility] DTAP 2006-04-20 Completed [facility] 00:00:00 [facility] MMR 2006-04-20 Completed [facility] 00:00:00 [facility] Polio (IPV/OPV) 2006-04-20 Completed [facility] 00:00:00 [facility] Varicella 2006-04-20 Completed [facility] (varivax)(chicken 00:00:00 [place] [facility] pox) [facility] DTAP 2006-04-20 Completed [facility] 00:00:00 [facility] MMR 2006-04-20 Completed [facility] 00:00:00 [facility] Polio (IPV/OPV) 2006-04-20 Completed [facility] 00:00:00 [facility] Varicella 2006-04-20 Completed [facility] (varivax)(chicken 00:00:00 [place] [facility] p[facility] DTAP 2006-04-20 Completed [facility] 00:00:00 [facility] MMR 2006-04-20 Completed [facility] 00:00:00 [facility] Polio (IPV/OPV) 2006-04-20 Completed [facility] 00:00:00 [facility] Varicella 2006-04-20 Completed [facility] (varivax)(chicken 00:00:00 [place] [facility] pox[facility] DTAP 2006-04-20 Completed [facility] 00:00:00 [facility] MMR 2006-04-20 Completed [facility] 00:00:00 [facility] Polio (IPV/OPV) 2006-04-20 Completed [facility] 00:00:00 [facility] Varicella 2006-04-20 Completed [facility] (varivax)(chicken 00:00:00 [place] [facility] DTAP 2006-04-20 Completed [facility] 00:00:00 [facility] MMR 2006-04-20 Completed [facility] 00:00:00 [facility] Polio (IPV/OPV) 2006-04-20 Completed [facility] 00:00:00 [facility] Varicella 2006-04-20 Completed [facility] (varivax)(chicken 00:00:00 [place] [facility] pox) [facility] DTAP 2006-04-20 Completed [facility] 00:00:00 [facility] MMR 2006-04-20 Completed [facility] 00:00:00 [facility] Polio (IPV/OPV) 2006-04-20 Completed [facility] 00:00:00 [facility] Varicella 2006-04-20 Completed [facility] (varivax)(chicken 00:00:00 [place] [facility] pox[facility] DTAP 2006-04-20 Completed [facility] 00:00:00 [facility] MMR 2006-04-20 Completed [facility] 00:00:00 [facility] Polio (IPV/OPV) 2006-04-20 Completed [facility] 00:00:00 [facility] Varicella 2006-04-20 Completed [facility] (varivax)(chicken 00:00:00 [place] [facility] p[facility] DTAP 2006-04-20 Completed [facility] 00:00:00 [facility] MMR 2006-04-20 Completed [facility] 00:00:00 [facility] Polio (IPV/OPV) 2006-04-20 Completed [facility] 00:00:00 [facility] Polio (IPV/OPV) 2006-04-20 Completed [facility] 00:00:00 [facility] Varicella 2006-04-20 Completed [facility] (varivax)(chicken 00:00:00 [place] [facility] DTAP 2006-04-20 Completed [facility] 00:00:00 [facility] MMR 2006-04-20 Completed [facility] 00:00:00 [facility] Varicella 2006-04-20 Completed [facility] (varivax)(chicken 00:00:00 [place] [facility] pox) [facility] DTAP 2006-04-20 Completed [facility] 00:00:00 [facility] MMR 2006-04-20 Completed [facility] 00:00:00 [facility] Polio (IPV/OPV) 2006-04-20 Completed [facility] 00:00:00 [facility] Varicella 2006-04-20 Completed [facility] (varivax)(chicken 00:00:00 [place] [facility] pox) [facility] DTAP 2006-04-20 Completed [facility] 00:00:00 [facility] MMR 2006-04-20 Completed [facility] 00:00:00 [facility] Polio (IPV/OPV) 2006-04-20 Completed [facility] 00:00:00 [facility] Varicella 2006-04-20 Completed [facility] (varivax)(chicken 00:00:00 [place] [facility] pox[facility] DTAP 2006-04-20 Completed [facility] 00:00:00 [facility] MMR 2006-04-20 Completed [facility] 00:00:00 [facility] Polio (IPV/OPV) 2006-04-20 Completed [facility] 00:00:00 [facility] Varicella 2006-04-20 Completed [facility] (varivax)(chicken 00:00:00 [place] [facility] pox) [facility] DTAP 2006-04-20 Completed [facility] 00:00:00 [facility] MMR 2006-04-20 Completed [facility] 00:00:00 [facility] Polio (IPV/OPV) 2006-04-20 Completed [facility] 00:00:00 [facility] Varicella 2006-04-20 Completed [facility] (varivax)(chicken 00:00:00 [place] [facility] p[facility] DTAP 2006-04-20 Completed [facility] 00:00:00 [facility] MMR 2006-04-20 Completed [facility] 00:00:00 [facility] Polio (IPV/OPV) 2006-04-20 Completed [facility] 00:00:00 [facility] Varicella 2006-04-20 Completed [facility] (varivax)(chicken 00:00:00 [place] [facility] pox) [facility] DTAP 2006-04-20 Completed [facility] 00:00:00 [facility] MMR 2006-04-20 Completed [facility] 00:00:00 [facility] Polio (IPV/OPV) 2006-04-20 Completed [facility] 00:00:00 [facility] Varicella 2006-04-20 Completed [facility] (varivax)(chicken 00:00:00 [place] [facility] p[facility] DTAP 2006-04-20 Completed [facility] 00:00:00 [facility] MMR 2006-04-20 Completed [facility] 00:00:00 [facility] Polio (IPV/OPV) 2006-04-20 Completed [facility] 00:00:00 [facility] Varicella 2006-04-20 Completed [facility] (varivax)(chicken 00:00:00 [place] [facility]) [facility] DTAP 2006-04-20 Completed [facility] 00:00:00 [facility] MMR 2006-04-20 Completed [facility] 00:00:00 [facility] Polio (IPV/OPV) 2006-04-20 Completed [facility] 00:00:00 [facility] Polio (IPV/OPV) 2006-04-20 Completed [facility] 00:00:00 [facility] Varicella 2006-04-20 Completed [facility] (varivax)(chicken 00:00:00 [place] [facility] p[facility]) [facility] DTAP 2006-04-20 Completed [facility] 00:00:00 [facility] MMR 2006-04-20 Completed [facility] 00:00:00 [facility] Varicella 2006-04-20 Completed [facility] (varivax)(chicken 00:00:00 [place] [facility] DTAP 2006-04-20 Completed [facility] 00:00:00 [facility] MMR 2006-04-20 Completed [facility] 00:00:00 [facility] Polio (IPV/OPV) 2006-04-20 Completed [facility] 00:00:00 [facility] Varicella 2006-04-20 Completed [facility] (varivax)(chicken 00:00:00 [facility] edical pox) Branch DTAP 2006-04-20 Completed [facility] 00:00:00 [facility] MMR 2006-04-20 Completed [facility] 00:00:00 [facility] Polio (IPV/OPV) 2006-04-20 Completed [facility] 00:00:00 [facility] Varicella 2006-04-20 Completed [facility] (varivax)(chicken 00:00:00 [facility] edical pox) Branch DTAP 2006-04-20 Completed [facility] 00:00:00 [facility] MMR 2006-04-20 Completed [facility] 00:00:00 [facility] Polio (IPV/OPV) 2006-04-20 Completed [facility] 00:00:00 [facility] Varicella 2006-04-20 Completed [facility] (varivax)(chicken 00:00:00 [facility] edical pox) Branch DTAP 2006-04-20 Completed [facility] 00:00:00 [facility] MMR 2006-04-20 Completed [facility] 00:00:00 [facility] Polio (IPV/OPV) 2006-04-20 Completed [facility] 00:00:00 [facility] Varicella 2006-04-20 Completed [facility] (varivax)(chicken 00:00:00 [facility] edical pox) Branch DTAP 2006-04-20 Completed [facility] 00:00:00 [facility] MMR 2006-04-20 Completed [facility] 00:00:00 [facility] Polio (IPV/OPV) 2006-04-20 Completed [facility] 00:00:00 [facility] Varicella 2006-04-20 Completed [facility] (varivax)(chicken 00:00:00 [place] [facility] p[facility]) [facility] DTAP 2006-04-20 Completed [facility] 00:00:00 [facility] MMR 2006-04-20 Completed [facility] 00:00:00 [facility] Polio (IPV/OPV) 2006-04-20 Completed [facility] 00:00:00 [facility] Varicella 2006-04-20 Completed [facility] (varivax)(chicken 00:00:00 [place] [facility] pox) [facility] DTAP 2006-04-20 Completed [facility] 00:00:00 [facility] MMR 2006-04-20 Completed [facility] 00:00:00 [facility] Polio (IPV/OPV) 2006-04-20 Completed [facility] 00:00:00 [facility] Varicella 2006-04-20 Completed [facility] (varivax)(chicken 00:00:00 [place] [facility] pox) [facility] DTAP 2006-04-20 Completed [facility] 00:00:00 [facility] MMR 2006-04-20 Completed [facility] 00:00:00 [facility] Polio (IPV/OPV) 2006-04-20 Completed [facility] 00:00:00 [facility] Varicella 2006-04-20 Completed [facility] (varivax)(chicken 00:00:00 [place] [facility] DTAP 2006-04-20 Completed [facility] 00:00:00 [facility] MMR 2006-04-20 Completed [facility] 00:00:00 [facility] Polio (IPV/OPV) 2006-04-20 Completed [facility] 00:00:00 [facility] Polio (IPV/OPV) 2006-04-20 Completed [facility] 00:00:00 [facility] Varicella 2006-04-20 Completed [facility] (varivax)(chicken 00:00:00 [place] [facility] DTAP 2006-04-20 Completed [facility] 00:00:00 [facility] MMR 2006-04-20 Completed [facility] 00:00:00 [facility] Varicella 2006-04-20 Completed [facility] (varivax)(chicken 00:00:00 [place] [facility] DTAP 2006-04-20 Completed [facility] 00:00:00 [facility] Polio (IPV/OPV) 2006-04-20 Completed [facility] 00:00:00 [facility] MMR 2006-04-20 Completed [facility] 00:00:00 [facility] Varicella 2006-04-20 Completed [facility] (varivax)(chicken 00:00:00 [place] [facility] DTAP 2006-04-20 Completed [facility] 00:00:00 [facility] MMR 2006-04-20 Completed [facility] 00:00:00 [facility] Polio (IPV/OPV) 2006-04-20 Completed [facility] 00:00:00 [facility] Varicella 2006-04-20 Completed [facility] (varivax)(chicken 00[facility]00:00 [place] [facility] DTAP 2006-04-20 Completed [facility] 00:00:00 [facility] MMR 2006-04-20 Completed [facility] 00:00:00 [facility] Polio (IPV/OPV) 2006-04-20 Completed [facility] 00:00:00 [facility] Varicella 2006-04-20 Completed [facility] (varivax)(chicken 00:00:00 [place] [facility] DTAP 2006-04-20 Completed [facility] 00:00:00 [facility] MMR 2006-04-20 Completed [facility] 00:00:00 [facility] Polio (IPV/OPV) 2006-04-20 Completed [facility] 00:00:00 [facility] Varicella 2006-04-20 Completed [facility] (varivax)(chicken 00:00:00 [place] [facility] DTAP 2006-04-20 Completed [facility] 00:00:00 [facility] MMR 2006-04-20 Completed [facility] 00:00:00 [facility] Polio (IPV/OPV) 2006-04-20 Completed [facility] 00:00:00 [facility] Varicella 2006-04-20 Completed [facility] (varivax)(chicken 00:00:00 [place] [facility] DTAP 2006-04-20 Completed [facility] 00:00:00 [facility] MMR 2006-04-20 Completed [facility] 00:00:00 [facility] Polio (IPV/OPV) 2006-04-20 Completed [facility] 00:00:00 [facility] Polio (IPV/OPV) 2006-04-20 Completed [facility] 00:00:00 [facility] Varicella 2006-04-20 Completed [facility] (varivax)(chicken 00:00:00 [place] [facility] DTAP 2006-04-20 Completed [facility] 00:00:00 [facility] MMR 2006-04-20 Completed [facility] 00:00:00 [facility] Varicella 2006-04-20 Completed [facility] (varivax)(chicken 00:00:00 [place] [facility] DTAP 2006-04-20 Completed [facility] 00:00:00 [facility] Polio (IPV/OPV) 2006-04-20 Completed [facility] 00:00:00 [facility] Varicella 2006-04-20 Completed [facility] (varivax)(chicken 00:00:00 [place] [facility] MMR 2006-04-20 Completed [facility] 00:00:00 [facility] DTAP 2006-04-20 Completed [facility] 00:00:00 [facility] MMR 2006-04-20 Completed [facility] 00:00:00 [facility] Polio (IPV/OPV) 2006-04-20 Completed [facility] 00:00:00 [facility] Varicella 2006-04-20 Completed [facility] (varivax)(chicken 00:00:00 [place] [facility] DTAP 2006-04-20 Completed [facility] 00:00:00 [facility] MMR 2006-04-20 Completed [facility] 00:00:00 [facility] Polio (IPV/OPV) 2006-04-20 Completed [facility] 00:00:00 [facility] Varicella 2006-04-20 Completed [facility] (varivax)(chicken 00:00:00 [place] [facility] DTAP 2006-04-20 Completed [facility] 00:00:00 [facility] MMR 2006-04-20 Completed [facility] 00:00:00 [facility] Polio (IPV/OPV) 2006-04-20 Completed [facility] 00:00:00 [facility] Varicella 2006-04-20 Completed [facility] (varivax)(chicken 00:00:00 [place] [facility] DTAP 2006-04-20 Completed [facility] 00:00:00 [facility] MMR 2006-04-20 Completed [facility] 00:00:00 [facility] Polio (IPV/OPV) 2006-04-20 Completed [facility] 00:00:00 [facility] Varicella 2006-04-20 Completed [facility] (varivax)(chicken 00:00:00 [place] [facility] DTAP 2006-04-20 Completed [facility] 00:00:00 [facility] MMR 2006-04-20 Completed [facility] 00:00:00 [facility] Polio (IPV/OPV) 2006-04-20 Completed [facility] 00:00:00 [facility] Varicella 2006-04-20 Completed [facility] (varivax)(chicken 00:00:00 [place] [facility] DTAP 2006-04-20 Completed [facility] 00:00:00 [facility] MMR 2006-04-20 Completed [facility] 00:00:00 [facility] Polio (IPV/OPV) 2006-04-20 Completed [facility] 00:00:00 [facility] Varicella 2006-04-20 Completed [facility] (varivax)(chicken 00:00:00 [place] [facility] DTAP 2006-04-20 Completed [facility] 00:00:00 [facility] MMR 2006-04-20 Completed [facility] 00:00:00 [facility] Polio (IPV/OPV) 2006-04-20 Completed [facility] 00:00:00 [facility] Polio (IPV/OPV) 2006-04-20 Completed [facility] 00:00:00 [facility] Varicella 2006-04-20 Completed [facility] (varivax)(chicken 00:00:00 [place] [facility] DTAP 2006-04-20 Completed [facility] 00:00:00 [facility] MMR 2006-04-20 Completed [facility] 00:00:00 [facility] Varicella 2006-04-20 Completed [facility] (varivax)(chicken 00:00:00 [place] [facility] DTAP 2006-04-20 Completed [facility] 00:00:00 [facility] Polio (IPV/OPV) 2006-04-20 Completed [facility] 00:00:00 [facility] MMR 2006-04-20 Completed [facility] 00:00:00 [facility] Varicella 2006-04-20 Completed [facility] (varivax)(chicken 00:00:00 [place] [facility] DTAP 2006-04-20 Completed [facility] 00:00:00 [facility] MMR 2006-04-20 Completed [facility] 00:00:00 [facility] Polio (IPV/OPV) 2006-04-20 Completed [facility] 00:00:00 [facility] Varicella 2006-04-20 Completed [facility] (varivax)(chicken 00:00:00 [place] [facility] DTAP 2006-04-20 Completed [facility] 00:00:00 [facility] MMR 2006-04-20 Completed [facility] 00:00:00 [facility] Polio (IPV/OPV) 2006-04-20 Completed [facility] 00:00:00 [facility] Varicella 2006-04-20 Completed [facility] (varivax)(chicken 00:00:00 [place] [facility] DTAP 2006-04-20 Completed [facility] 00:00:00 [facility] MMR 2006-04-20 Completed [facility] 00:00:00 [facility] Polio (IPV/OPV) 2006-04-20 Completed [facility] 00:00:00 [facility] Varicella 2006-04-20 Completed [facility] (varivax)(chicken 00:00:00 [place] [facility] DTAP 2006-04-20 Completed [facility] 00:00:00 [facility] MMR 2006-04-20 Completed [facility] 00:00:00 [facility] Polio (IPV/OPV) 2006-04-20 Completed [facility] 00:00:00 [facility] Varicella 2006-04-20 Completed [facility] (varivax)(chicken 00:00:00 [place] [facility] DTAP 2006-04-20 Completed [facility] 00:00:00 [facility] MMR 2006-04-20 Completed [facility] 00:00:00 [facility] Polio (IPV/OPV) 2006-04-20 Completed [facility] 00:00:00 [facility] Varicella 2006-04-20 Completed [facility] (varivax)(chicken 00:00:00 [place] [facility]ox[facility] DTAP 2006-04-20 Completed [facility] 00:00:00 [facility] MMR 2006-04-20 Completed [facility] 00:00:00 [facility] Polio (IPV/OPV) 2006-04-20 Completed [facility] 00:00:00 [facility] Varicella 2006-04-20 Completed [facility] (varivax)(chicken 00:00:00 [place] [facility] DTAP 2006-04-20 Completed [facility] 00:00:00 [facility] MMR 2006-04-20 Completed [facility] 00:00:00 [facility] Polio (IPV/OPV) 2006-04-20 Completed [facility] 00:00:00 [facility] Polio (IPV/OPV) 2006-04-20 Completed [facility] 00:00:00 [facility] Varicella 2006-04-20 Completed [facility] (varivax)(chicken 00:00:00 [facility] edical pox) Branch DTAP 2006-04-20 Completed [facility] of 00:00:00 [facility] MMR 2006-04-20 Completed [facility] 00:00:00 [facility] Varicella 2006-04-20 Completed [facility] (varivax)(chicken 00:00:00 [facility] edical pox) Branch Polio (IPV/OPV) 2006-04-20 Completed [facility] 00:00:00 [facility] Varicella 2006-04-20 Completed [facility] (varivax)(chicken 00:00:00 [facility] edical pox) Branch DTAP 2006-04-20 Completed [facility] 00:00:00 [facility] DTAP 2006-04-20 Completed [facility] 00:00:00 [facility] MMR 2006-04-20 Completed [facility] 00:00:00 [facility] MMR 2006-04-20 Completed [facility] 00:00:00 [facility] Polio (IPV/OPV) 2006-04-20 Completed [facility] 00:00:00 [facility] Varicella 2006-04-20 Completed [facility] (varivax)(chicken 00:00:00 [facility] edical pox) Branch DTAP 2006-04-20 Completed [facility] of 00:00:00 [facility] MMR 2006-04-20 Completed [facility] 00:00:00 [facility] Polio (IPV/OPV) 2006-04-20 Completed [facility] 00:00:00 [facility] Varicella 2006-04-20 Completed [facility] (varivax)(chicken 00:00:00 [facility] edical pox) Branch DTAP 2006-04-20 Completed [facility] 00:00:00 [facility] MMR 2006-04-20 Completed [facility] 00:00:00 [facility] Polio (IPV/OPV) 2006-04-20 Completed [facility] 00:00:00 [facility] Varicella 2006-04-20 Completed [facility] (varivax)(chicken 00:00:00 [place] [facility] DTAP 2006-04-20 Completed [facility] 00:00:00 [facility] MMR 2006-04-20 Completed [facility] 00:00:00 [facility] Polio (IPV/OPV) 2006-04-20 Completed [facility] 00:00:00 [facility] Varicella 2006-04-20 Completed [facility] (varivax)(chicken 00:00:00 [place] [facility] pox[facility] DTAP 2006-04-20 Completed [facility] 00:00:00 [facility] MMR 2006-04-20 Completed [facility] 00:00:00 [facility] Polio (IPV/OPV) 2006-04-20 Completed [facility] 00:00:00 [facility] Varicella 2006-04-20 Completed [facility] (varivax)(chicken 00:00:00 [place] [facility] pox) [facility] DTAP 2006-04-20 Completed [facility] 00:00:00 [facility] MMR 2006-04-20 Completed [facility] 00:00:00 [facility] Polio (IPV/OPV) 2006-04-20 Completed [facility] 00:00:00 [facility] Varicella 2006-04-20 Completed [facility] (varivax)(chicken 00:00:00 [place] [facility] pox[facility] DTAP 2006-04-20 Completed [facility] 00:00:00 [facility] MMR 2006-04-20 Completed [facility] 00:00:00 [facility] Polio (IPV/OPV) 2006-04-20 Completed [facility] 00:00:00 [facility] Polio (IPV/OPV) 2006-04-20 Completed [facility] 00:00:00 [facility] Varicella 2006-04-20 Completed [facility] (varivax)(chicken 00:00:00 [place] [facility] pox) [facility] DTAP 2006-04-20 Completed [facility] 00:00:00 [facility] MMR 2006-04-20 Completed [facility] 00:00:00 [facility] Polio (IPV/OPV) 2006-04-20 Completed [facility] 00:00:00 [facility] Varicella 2006-04-20 Completed [facility] (varivax)(chicken 00:00:00 [place] [facility] pox) [facility] DTAP 2006-04-20 Completed [facility] 00:00:00 [facility] MMR 2006-04-20 Completed [facility] 00:00:00 [facility] Varicella 2006-04-20 Completed [facility] (varivax)(chicken 00:00:00 [place] [facility] pox) [facility] DTAP 2006-04-20 Completed [facility] 00:00:00 [facility] MMR 2006-04-20 Completed [facility] 00:00:00 [facility] Polio (IPV/OPV) 2006-04-20 Completed [facility] 00:00:00 [facility] Varicella 2006-04-20 Completed [facility] (varivax)(chicken 00:00:00 [facility] edical pox) Branch DTAP 2006-04-20 Completed [facility] 00:00:00 [facility] MMR 2006-04-20 Completed [facility] 00:00:00 [facility] Polio (IPV/OPV) 2006-04-20 Completed [facility] 00:00:00 [facility] Varicella 2006-04-20 Completed [facility] (varivax)(chicken 00:00:00 [place] [facility] pox) [facility] DTAP 2006-04-20 Completed [facility] 00:00:00 [facility] MMR 2006-04-20 Completed [facility] 00:00:00 [facility] Polio (IPV/OPV) 2006-04-20 Completed [facility] 00:00:00 [facility] Varicella 2006-04-20 Completed [facility] (varivax)(chicken 00:00:00 [facility] edical pox) Branch DTAP 2006-04-20 Completed [facility] of 00:00:00 [facility] MMR 2006-04-20 Completed [facility] 00:00:00 [facility] Polio (IPV/OPV) 2006-04-20 Completed [facility] 00:00:00 [facility] Varicella 2006-04-20 Completed [facility] (varivax)(chicken 00:00:00 [facility] edical pox) Branch DTAP 2006-04-20 Completed [facility] 00:00:00 [facility] MMR 2006-04-20 Completed [facility] 00:00:00 [facility] Polio (IPV/OPV) 2006-04-20 Completed [facility] 00:00:00 [facility] Varicella 2006-04-20 Completed [facility] (varivax)(chicken 00:00:00 [place] [facility] pox) [facility] DTAP 2006-04-20 Completed [facility] 00:00:00 [facility] MMR 2006-04-20 Completed [facility] 00:00:00 [facility] Polio (IPV/OPV) 2006-04-20 Completed [facility] 00:00:00 [facility] Varicella 2006-04-20 Completed [facility] (varivax)(chicken 00:00:00 [place] [facility] pox) [facility] DTAP 2006-04-20 Completed [facility] 00:00:00 [facility] MMR 2006-04-20 Completed [facility] 00:00:00 [facility] Polio (IPV/OPV) 2006-04-20 Completed [facility] 00:00:00 [facility] Varicella 2006-04-20 Completed [facility] (varivax)(chicken 00:00:00 [place] [facility] pox) [facility] DTAP 2006-04-20 Completed [facility] 00:00:00 [facility] MMR 2006-04-20 Completed [facility] 00:00:00 [facility] Polio (IPV/OPV) 2006-04-20 Completed [facility] 00:00:00 [facility] Varicella 2006-04-20 Completed [facility] (varivax)(chicken 00:00:00 [place] [facility] pox) [facility] DTAP 2006-04-20 Completed [facility] 00:00:00 [facility] MMR 2006-04-20 Completed [facility] 00:00:00 [facility] Polio (IPV/OPV) 2006-04-20 Completed [facility] 00:00:00 [facility] Varicella 2006-04-20 Completed [facility] (varivax)(chicken 00:00:00 [place] [facility] pox) [facility] DTAP 2006-04-20 Completed [facility] 00:00:00 [facility] MMR 2006-04-20 Completed [facility] 00:00:00 [facility] Polio (IPV/OPV) 2006-04-20 Completed [facility] 00:00:00 [facility] Varicella 2006-04-20 Completed [facility] (varivax)(chicken 00:00:00 [place] [facility] pox) [facility] DTAP 2006-04-20 Completed [facility] 00:00:00 [facility] MMR 2006-04-20 Completed [facility] 00:00:00 [facility] Polio (IPV/OPV) 2006-04-20 Completed [facility] 00:00:00 [facility] Polio (IPV/OPV) 2006-04-20 Completed [facility] 00:00:00 [facility] Varicella 2006-04-20 Completed [facility] (varivax)(chicken 00:00:00 [place] [facility] pox) [facility] DTAP 2006-04-20 Completed [facility] 00:00:00 [facility] MMR 2006-04-20 Completed [facility] 00:00:00 [facility] Polio (IPV/OPV) 2006-04-20 Completed [facility] 00:00:00 [facility] Varicella 2006-04-20 Completed [facility] (varivax)(chicken 00:00:00 [place] [facility] pox) [facility] DTAP 2006-04-20 Completed [facility] 00:00:00 [facility] MMR 2006-04-20 Completed [facility] 00:00:00 [facility] Varicella 2006-04-20 Completed [facility] (varivax)(chicken 00:00:00 [place] [facility] pox) [facility] DTAP 2006-04-20 Completed [facility] 00:00:00 [facility] MMR 2006-04-20 Completed [facility] 00:00:00 [facility] Polio (IPV/OPV) 2006-04-20 Completed [facility] 00:00:00 [facility] Varicella 2006-04-20 Completed [facility] (varivax)(chicken 00:00:00 [place] [facility] pox) [facility] DTAP 2006-04-20 Completed [facility] 00:00:00 [facility] MMR 2006-04-20 Completed [facility] 00:00:00 [facility] Polio (IPV/OPV) 2006-04-20 Completed [facility] 00:00:00 [facility] Varicella 2006-04-20 Completed [facility] (varivax)(chicken 00:00:00 [place] [facility] pox) [facility] DTAP 2006-04-20 Completed [facility] 00:00:00 [facility] MMR 2006-04-20 Completed [facility] 00:00:00 [facility] Polio (IPV/OPV) 2006-04-20 Completed [facility] 00:00:00 [facility] Varicella 2006-04-20 Completed [facility] (varivax)(chicken 00:00:00 [place] [facility] pox) [facility] DTAP 2006-04-20 Completed [facility] 00:00:00 [facility] MMR 2006-04-20 Completed [facility] 00:00:00 [facility] Polio (IPV/OPV) 2006-04-20 Completed [facility] 00:00:00 [facility] Varicella 2006-04-20 Completed [facility] (varivax)(chicken 00:00:00 [place] [facility] pox) [facility] DTAP 2006-04-20 Completed [facility] 00:00:00 [facility] MMR 2006-04-20 Completed [facility] 00:00:00 [facility] Polio (IPV/OPV) 2006-04-20 Completed [facility] 00:00:00 [facility] Varicella 2006-04-20 Completed [facility] (varivax)(chicken 00:00:00 [facility] edical pox) Branch DTAP 2006-04-20 Completed [facility] 00:00:00 [facility] MMR 2006-04-20 Completed [facility] 00:00:00 [facility] Polio (IPV/OPV) 2006-04-20 Completed [facility] 00:00:00 [facility] Varicella 2006-04-20 Completed [facility] (varivax)(chicken 00:00:00 [place] [facility] pox[facility] DTAP 2006-04-20 Completed [facility] 00:00:00 [facility] MMR 2006-04-20 Completed [facility] 00:00:00 [facility] Polio (IPV/OPV) 2006-04-20 Completed [facility] 00:00:00 [facility] Varicella 2006-04-20 Completed [facility] (varivax)(chicken 00:00:00 [place] [facility] pox) [facility] DTAP 2006-04-20 Completed [facility] 00:00:00 [facility] MMR 2006-04-20 Completed [facility] 00:00:00 [facility] Polio (IPV/OPV) 2006-04-20 Completed [facility] 00:00:00 [facility] Varicella 2006-04-20 Completed [facility] (varivax)(chicken 00:00:00 [place] [facility] pox) [facility] DTAP 2006-04-20 Completed [facility] 00:00:00 [facility] MMR 2006-04-20 Completed [facility] 00:00:00 [facility] HEPATITIS A 2005-01-09 Completed [facility] 00:00:00 [facility] HEPATITIS A 2005-01-09 Completed [facility] 00:00:00 [facility] HEPATITIS A 2005-01-09 Completed [facility] 00:00:00 [facility] HEPATITIS A 2005-01-09 Completed [facility] 00:00:00 [facility] HEPATITIS A 2005-01-09 Completed [facility] 00:00:00 [facility] HEPATITIS A 2005-01-09 Completed [facility] 00:00:00 [facility] HEPATITIS A 2005-01-09 Completed [facility] 00:00:00 [facility] HEPATITIS A 2005-01-09 Completed [facility] 00:00:00 [facility] HEPATITIS A 2005-01-09 Completed [facility] 00:00:00 [facility] HEPATITIS A 2005-01-09 Completed [facility] 00:00:00 [facility] HEPATITIS A 2005-01-09 Completed [facility] 00:00:00 [facility] HEPATITIS A 2005-01-09 Completed [facility] 00:00:00 [facility] HEPATITIS A 2005-01-09 Completed [facility] 00:00:00 [facility] HEPATITIS A 2005-01-09 Completed [facility] 00:00:00 [facility] HEPATITIS A 2005-01-09 Completed [facility] 00:00:00 [facility] HEPATITIS A 2005-01-09 Completed [facility] 00:00:00 [facility] HEPATITIS A 2005-01-09 Completed [facility] 00:00:00 [facility] HEPATITIS A 2005-01-09 Completed [facility] 00:00:00 [facility] HEPATITIS A 2005-01-09 Completed [facility] 00:00:00 [facility] HEPATITIS A 2005-01-09 Completed [facility] 00:00:00 [facility] HEPATITIS A 2005-01-09 Completed [facility] 00:00:00 [facility] HEPATITIS A 2005-01-09 Completed [facility] 00:00:00 [facility] HEPATITIS A 2005-01-09 Completed [facility] 00:00:00 [facility] HEPATITIS A 2005-01-09 Completed [facility] 00:00:00 [facility] HEPATITIS A 2005-01-09 Completed [facility] 00:00:00 [facility] HEPATITIS A 2005-01-09 Completed [facility] 00:00:00 [facility] HEPATITIS A 2005-01-09 Completed [facility] 00:00:00 [facility] HEPATITIS A 2005-01-09 Completed [facility] 00:00:00 [facility] HEPATITIS A 2005-01-09 Completed [facility] 00:00:00 [facility] HEPATITIS A 2005-01-09 Completed [facility] 00:00:00 [facility] HEPATITIS A 2005-01-09 Completed [facility] 00:00:00 [facility] Branch HEPATITIS A 2005-01-09 Completed [facility] 00:00:00 [facility] HEPATITIS A 2005-01-09 Completed [facility] 00:00:00 [facility] HEPATITIS A 2005-01-09 Completed [facility] 00:00:00 [facility] HEPATITIS A 2005-01-09 Completed [facility] 00:00:00 [facility] HEPATITIS A 2005-01-09 Completed [facility] 00:00:00 [facility] HEPATITIS A 2005-01-09 Completed [facility] 00:00:00 [facility] HEPATITIS A 2005-01-09 Completed [facility] 00:00:00 [facility] HEPATITIS A 2005-01-09 Completed [facility] 00:00:00 [facility] HEPATITIS A 2005-01-09 Completed [facility] 00:00:00 [facility] HEPATITIS A 2005-01-09 Completed [facility] 00:00:00 [facility] HEPATITIS A 2005-01-09 Completed [facility] 00:00:00 [facility] HEPATITIS A 2005-01-09 Completed [facility] 00:00:00 [facility] HEPATITIS A 2005-01-09 Completed [facility] 00:00:00 [facility] HEPATITIS A 2005-01-09 Completed [facility] 00:00:00 [facility] HEPATITIS A 2005-01-09 Completed [facility] 00:00:00 [facility] HEPATITIS A 2005-01-09 Completed [facility] 00:00:00 [facility] HEPATITIS A 2005-01-09 Completed [facility] 00:00:00 [facility] HEPATITIS A 2005-01-09 Completed [facility] 00:00:00 [facility] HEPATITIS A 2005-01-09 Completed [facility] 00:00:00 [facility] HEPATITIS A 2005-01-09 Completed [facility] 00:00:00 [facility] HEPATITIS A 2005-01-09 Completed [facility] 00:00:00 [facility] HEPATITIS A 2005-01-09 Completed [facility] 00:00:00 [facility] HEPATITIS A 2005-01-09 Completed [facility] 00:00:00 [facility] HEPATITIS A 2005-01-09 Completed [facility] 00:00:00 [facility] HEPATITIS A 2005-01-09 Completed [facility] 00:00:00 [facility] HEPATITIS A 2005-01-09 Completed [facility] 00:00:00 [facility] HEPATITIS A 2005-01-09 Completed [facility] 00:00:00 [facility] HEPATITIS A 2005-01-09 Completed [facility] 00:00:00 [facility] HEPATITIS A 2005-01-09 Completed [facility] 00:00:00 [facility] HEPATITIS A 2005-01-09 Completed [facility] 00:00:00 [facility] HEPATITIS A 2005-01-09 Completed [facility] 00:00:00 [facility] HEPATITIS A 2005-01-09 Completed [facility] 00:00:00 [facility] HEPATITIS A 2005-01-09 Completed [facility] 00:00:00 [facility] HEPATITIS A 2005-01-09 Completed [facility] 00:00:00 [facility] HEPATITIS A 2005-01-09 Completed [facility] 00:00:00 [facility] HEPATITIS A 2005-01-09 Completed [facility] 00:00:00 [facility] HEPATITIS A 2005-01-09 Completed [facility] 00:00:00 [facility] HEPATITIS A 2005-01-09 Completed [facility] 00:00:00 [facility] HEPATITIS A 2005-01-09 Completed [facility] 00:00:00 [facility] HEPATITIS A 2005-01-09 Completed [facility] 00:00:00 [facility] HEPATITIS A 2005-01-09 Completed [facility] 00:00:00 [facility] HEPATITIS A 2005-01-09 Completed [facility] 00:00:00 [facility] HEPATITIS A 2005-01-09 Completed [facility] 00:00:00 [facility] HEPATITIS A 2005-01-09 Completed [facility] 00:00:00 [facility] HEPATITIS A 2005-01-09 Completed [facility] 00:00:00 [facility] HEPATITIS A 2005-01-09 Completed [facility] 00:00:00 [facility] HEPATITIS A 2005-01-09 Completed [facility] 00:00:00 [facility] HEPATITIS A 2005-01-09 Completed [facility] 00:00:00 [facility] HEPATITIS A 2005-01-09 Completed [facility] 00:00:00 [facility] HEPATITIS A 2005-01-09 Completed [facility] 00:00:00 [facility] HEPATITIS A 2005-01-09 Completed [facility] 00:00:00 [facility] HEPATITIS A 2005-01-09 Completed [facility] 00:00:00 [facility] HEPATITIS A 2005-01-09 Completed [facility] 00:00:00 [facility] HEPATITIS A 2005-01-09 Completed [facility] 00:00:00 [facility] HEPATITIS A 2005-01-09 Completed [facility] 00:00:00 [facility] HEPATITIS A 2005-01-09 Completed [facility] 00:00:00 [facility] HEPATITIS A 2005-01-09 Completed [facility] 00:00:00 [facility] HEPATITIS A 2005-01-09 Completed [facility] 00:00:00 [facility] HEPATITIS A 2005-01-09 Completed [facility] 00:00:00 [facility] HEPATITIS A 2005-01-09 Completed [facility] 00:00:00 [facility] HEPATITIS A 2005-01-09 Completed [facility] 00:00:00 [facility] HEPATITIS A 2005-01-09 Completed [facility] 00:00:00 [facility] HEPATITIS A 2005-01-09 Completed [facility] 00:00:00 [facility] HEPATITIS A 2005-01-09 Completed [facility] 00:00:00 [facility] HEPATITIS A 2005-01-09 Completed [facility] 00:00:00 [facility] HEPATITIS A 2005-01-09 Completed [facility] 00:00:00 [facility] HEPATITIS A 2005-01-09 Completed [facility] 00:00:00 [facility] HEPATITIS A 2005-01-09 Completed [facility] 00:00:00 [facility] HEPATITIS A 2005-01-09 Completed [facility] 00:00:00 [facility] HEPATITIS A 2005-01-09 Completed [facility] 00:00:00 [facility] HEPATITIS A 2004-05-28 Completed [facility] 00:00:00 [facility] Pneumococcal 7 2004-05-28 Completed [facility] of Conjugate, PCV7 00:00:00 [place] [facility] [place] HEPATITIS A 2004-05-28 Completed [facility] 00:00:00 [facility] Pneumococcal 7 2004-05-28 Completed [facility] of Conjugate, PCV7 00:00:00 [place] [facility]Pre[facility]ar[facility] [place] HEPATITIS A 2004-05-28 Completed [facility] 00:00:00 [facility] Pneumococcal 7 2004-05-28 Completed [facility] of Conjugate, PCV7 00:00:00 [place] [facility] (Pre[facility]ar[facility] [place] HEPATITIS A 2004-05-28 Completed [facility] 00:00:00 [facility] Pneumococcal 7 2004-05-28 Completed [facility] of Conjugate, PCV7 00:00:00 [place] [facility] (Pre[facility]ar[facility] Pneumococcal 7 2004-05-28 Completed [facility] Conjugate, PCV7 00:00:00 [place] [facility]Pre[facility] HEPATITIS A 2004-05-28 Completed [facility] 00:00:00 [facility] Pneumococcal 7 2004-05-28 Completed [facility] Conjugate, PCV7 00:00:00 [place] [facility] (Pre[facility]ar[facility] HEPATITIS A 2004-05-28 Completed [facility] 00:00:00 [facility] Pneumococcal 7 2004-05-28 Completed [facility] Conjugate, PCV7 00:00:00 [place] [facility] (Pre[facility]ar7[facility] HEPATITIS A 2004-05-28 Completed [facility] 00:00:00 [facility] Pneumococcal 7 2004-05-28 Completed [facility] Conjugate, PCV7 00:00:00 [place] [facility] (Prevnar7[facility] HEPATITIS A 2004-05-28 Completed [facility] 00:00:00 [facility] Pneumococcal 7 2004-05-28 Completed [facility] Conjugate, PCV7 00:00:00 [place] [facility] (Prevnar7[facility] HEPATITIS A 2004-05-28 Completed [facility] 00:00:00 [facility] Pneumococcal 7 2004-05-28 Completed [facility] Conjugate, PCV7 00:00:00 [place] [facility] (Prevnar7[facility] HEPATITIS A 2004-05-28 Completed [facility] 00:00:00 [facility] HEPATITIS A 2004-05-28 Completed [facility] 00:00:00 [facility] Pneumococcal 7 2004-05-28 Completed [facility] Conjugate, PCV7 00:00:00 [place] [facility] (Prevnar7[facility] HEPATITIS A 2004-05-28 Completed [facility] 00:00:00 [facility] Pneumococcal 7 2004-05-28 Completed [facility] of Conjugate, PCV7 00:00:00 [place] [facility] (Prevnar7[facility] HEPATITIS A 2004-05-28 Completed [facility] 00:00:00 [facility] Pneumococcal 7 2004-05-28 Completed [facility] Conjugate, PCV7 00:00:00 [place] [facility] (Prevnar7) [facility] HEPATITIS A 2004-05-28 Completed [facility] 00:00:00 [facility] Pneumococcal 7 2004-05-28 Completed [facility] Conjugate, PCV7 00:00:00 [place] [facility] (Prevnar7) [facility] Pneumococcal 7 2004-05-28 Completed [facility] Conjugate, PCV7 00:00:00 [place] [facility] (Prevnar7) [facility] HEPATITIS A 2004-05-28 Completed [facility] 00:00:00 [facility] Pneumococcal 7 2004-05-28 Completed [facility] Conjugate, PCV7 00:00:00 [place] [facility] (Prevnar7) [facility] HEPATITIS A 2004-05-28 Completed [facility] 00:00:00 [facility] Pneumococcal 7 2004-05-28 Completed [facility] Conjugate, PCV7 00:00:00 [place] [facility] (Prevnar7) [facility] HEPATITIS A 2004-05-28 Completed [facility] 00:00:00 [facility] Pneumococcal 7 2004-05-28 Completed [facility] Conjugate, PCV7 00:00:00 [place] [facility] (Prevnar7) [facility] HEPATITIS A 2004-05-28 Completed [facility] 00:00:00 [facility] Pneumococcal 7 2004-05-28 Completed [facility] Conjugate, PCV7 00:00:00 [place] [facility] (Prevnar7) [facility] HEPATITIS A 2004-05-28 Completed [facility] 00:00:00 [facility] Pneumococcal 7 2004-05-28 Completed [facility] Conjugate, PCV7 00:00:00 [place] [facility] (Prevnar7) [place] HEPATITIS A 2004-05-28 Completed [facility] 00:00:00 [facility] Pneumococcal 7 2004-05-28 Completed [facility] Conjugate, PCV7 00:00:00 [place] [facility] (Prevnar7) [facility] HEPATITIS A 2004-05-28 Completed [facility] 00:00:00 [facility] Pneumococcal 7 2004-05-28 Completed [facility] Conjugate, PCV7 00:00:00 [place] [facility] (Pre[facility]ar[facility] HEPATITIS A 2004-05-28 Completed [facility] 00:00:00 [facility] HEPATITIS A 2004-05-28 Completed [facility] 00:00:00 [facility] Pneumococcal 7 2004-05-28 Completed [facility] Conjugate, PCV7 00:00:00 [place] [facility] (Prevnar7) [facility] HEPATITIS A 2004-05-28 Completed [facility] 00:00:00 [facility] Pneumococcal 7 2004-05-28 Completed [facility] Conjugate, PCV7 00:00:00 [place] [facility] (Prevnar7) [facility] HEPATITIS A 2004-05-28 Completed [facility] 00:00:00 [facility] Pneumococcal 7 2004-05-28 Completed [facility] Conjugate, PCV7 00:00:00 [place] [facility] (Prevnar7) [facility] HEPATITIS A 2004-05-28 Completed [facility] 00:00:00 [facility] Pneumococcal 7 2004-05-28 Completed [facility] Conjugate, PCV7 00:00:00 [place] [facility] (Prevnar7) [facility] Pneumococcal 7 2004-05-28 Completed [facility] Conjugate, PCV7 00:00:00 [place] [facility] (Prevnar7) [facility] HEPATITIS A 2004-05-28 Completed [facility] 00:00:00 [facility] Pneumococcal 7 2004-05-28 Completed [facility] Conjugate, PCV7 00:00:00 [place] [facility] (Prevnar7) [facility] HEPATITIS A 2004-05-28 Completed [facility] 00:00:00 [facility] Pneumococcal 7 2004-05-28 Completed [facility] Conjugate, PCV7 00:00:00 [place] [facility] (Prevnar7) [facility] HEPATITIS A 2004-05-28 Completed [facility] 00:00:00 [facility] Pneumococcal 7 2004-05-28 Completed [facility] Conjugate, PCV7 00:00:00 [place] [facility] (Prevnar7) [facility] HEPATITIS A 2004-05-28 Completed [facility] 00:00:00 [facility] Pneumococcal 7 2004-05-28 Completed [facility] Conjugate, PCV7 00:00:00 [place] [facility] (Prevnar7) [facility] HEPATITIS A 2004-05-28 Completed [facility] 00:00:00 [facility] HEPATITIS A 2004-05-28 Completed [facility] 00:00:00 [facility] Pneumococcal 7 2004-05-28 Completed [facility] Conjugate, PCV7 00:00:00 [place] [facility] (Prevnar7) [facility] HEPATITIS A 2004-05-28 Completed [facility] 00:00:00 [facility] Pneumococcal 7 2004-05-28 Completed [facility] Conjugate, PCV7 00:00:00 [place] [facility] (Prevnar7) [facility] HEPATITIS A 2004-05-28 Completed [facility] 00:00:00 [facility] Pneumococcal 7 2004-05-28 Completed [facility] Conjugate, PCV7 00:00:00 [place] [facility] (Prevnar7) [facility] HEPATITIS A 2004-05-28 Completed [facility] 00:00:00 [facility] Pneumococcal 7 2004-05-28 Completed [facility] Conjugate, PCV7 00:00:00 [place] [facility] (Prevnar7) [facility] Pneumococcal 7 2004-05-28 Completed [facility] Conjugate, PCV7 00:00:00 [place] [facility] (Prevnar7) [facility] HEPATITIS A 2004-05-28 Completed [facility] 00:00:00 [facility] Pneumococcal 7 2004-05-28 Completed [facility] Conjugate, PCV7 00:00:00 [place] [facility] (Prevnar7) [facility] HEPATITIS A 2004-05-28 Completed [facility] 00:00:00 [facility] Pneumococcal 7 2004-05-28 Completed [facility] Conjugate, PCV7 00:00:00 [place] [facility] (Prevnar7) [facility] HEPATITIS A 2004-05-28 Completed [facility] 00:00:00 [facility] Pneumococcal 7 2004-05-28 Completed [facility] Conjugate, PCV7 00:00:00 [place] [facility] (Prevnar7) [facility] HEPATITIS A 2004-05-28 Completed [facility] 00:00:00 [facility] Pneumococcal 7 2004-05-28 Completed [facility] Conjugate, PCV7 00:00:00 [place] [facility] (Prevnar7) [facility] HEPATITIS A 2004-05-28 Completed [facility] 00:00:00 [facility] Pneumococcal 7 2004-05-28 Completed [facility] Conjugate, PCV7 00:00:00 [place] [facility] (Prevnar7) [facility] HEPATITIS A 2004-05-28 Completed [facility] 00:00:00 [facility] HEPATITIS A 2004-05-28 Completed [facility] 00:00:00 [facility] Pneumococcal 7 2004-05-28 Completed [facility] Conjugate, PCV7 00:00:00 [place] [facility] (Prevnar7) [facility] HEPATITIS A 2004-05-28 Completed [facility] 00:00:00 [facility] Pneumococcal 7 2004-05-28 Completed [facility] Conjugate, PCV7 00:00:00 [place] [facility] (Prevnar7) [facility] HEPATITIS A 2004-05-28 Completed [facility] 00:00:00 [facility] Pneumococcal 7 2004-05-28 Completed [facility] Conjugate, PCV7 00:00:00 [place] [facility] (Prevnar7) [facility] HEPATITIS A 2004-05-28 Completed [facility] 00:00:00 [facility] Pneumococcal 7 2004-05-28 Completed [facility] Conjugate, PCV7 00:00:00 [place] [facility] (Prevnar7) [facility] Pneumococcal 7 2004-05-28 Completed [facility] Conjugate, PCV7 00:00:00 [place] [facility] (Prevnar7) [facility] HEPATITIS A 2004-05-28 Completed [facility] 00:00:00 [facility] Pneumococcal 7 2004-05-28 Completed [facility] Conjugate, PCV7 00:00:00 [place] [facility] (Prevnar7) [facility] HEPATITIS A 2004-05-28 Completed [facility] 00:00:00 [facility] Pneumococcal 7 2004-05-28 Completed [facility] Conjugate, PCV7 00:00:00 [place] [facility] (Prevnar7) [facility] HEPATITIS A 2004-05-28 Completed [facility] 00:00:00 [facility] HEPATITIS A 2004-05-28 Completed [facility] 00:00:00 [facility] Pneumococcal 7 2004-05-28 Completed [facility] Conjugate, PCV7 00:00:00 [place] [facility] (Prevnar7) [facility] HEPATITIS A 2004-05-28 Completed [facility] 00:00:00 [facility] Pneumococcal 7 2004-05-28 Completed [facility] Conjugate, PCV7 00:00:00 [place] [facility] (Prevnar7) [facility] HEPATITIS A 2004-05-28 Completed [facility] 00:00:00 [facility] Pneumococcal 7 2004-05-28 Completed [facility] Conjugate, PCV7 00:00:00 [place] [facility] (Prevnar7) [facility] HEPATITIS A 2004-05-28 Completed [facility] 00:00:00 [facility] Pneumococcal 7 2004-05-28 Completed [facility] Conjugate, PCV7 00:00:00 [place] [facility] (Prevnar7) [facility] Pneumococcal 7 2004-05-28 Completed [facility] Conjugate, PCV7 00:00:00 [place] [facility] (Prevnar7) [facility] HEPATITIS A 2004-05-28 Completed [facility] 00:00:00 [facility] Pneumococcal 7 2004-05-28 Completed [facility] Conjugate, PCV7 00:00:00 [place] [facility] (Prevnar7) [facility] HEPATITIS A 2004-05-28 Completed [facility] 00:00:00 [facility] Pneumococcal 7 2004-05-28 Completed [facility] Conjugate, PCV7 00:00:00 [place] [facility] (Prevnar7) [facility] HEPATITIS A 2004-05-28 Completed [facility] 00:00:00 [facility] Pneumococcal 7 2004-05-28 Completed [facility] Conjugate, PCV7 00:00:00 [place] [facility] (Prevnar7) [facility] HEPATITIS A 2004-05-28 Completed [facility] 00:00:00 [facility] Pneumococcal 7 2004-05-28 Completed [facility] Conjugate, PCV7 00:00:00 [place] [facility] (Prevnar7) [facility] HEPATITIS A 2004-05-28 Completed [facility] 00:00:00 [facility] HEPATITIS A 2004-05-28 Completed [facility] 00:00:00 [facility] Pneumococcal 7 2004-05-28 Completed [facility] Conjugate, PCV7 00:00:00 [place] [facility] (Prevnar7) [facility] HEPATITIS A 2004-05-28 Completed [facility] 00:00:00 [facility] Pneumococcal 7 2004-05-28 Completed [facility] Conjugate, PCV7 00:00:00 [place] [facility] (Prevnar7) [facility] HEPATITIS A 2004-05-28 Completed [facility] 00:00:00 [facility] Pneumococcal 7 2004-05-28 Completed [facility] Conjugate, PCV7 00:00:00 [place] [facility] (Prevnar7) [facility] HEPATITIS A 2004-05-28 Completed [facility] 00:00:00 [facility] Pneumococcal 7 2004-05-28 Completed [facility] Conjugate, PCV7 00:00:00 [place] [facility] (Prevnar7) [facility] Pneumococcal 7 2004-05-28 Completed [facility] Conjugate, PCV7 00:00:00 [place] [facility] (Prevnar7) [facility] HEPATITIS A 2004-05-28 Completed [facility] 00:00:00 [facility] Pneumococcal 7 2004-05-28 Completed [facility] Conjugate, PCV7 00:00:00 [place] [facility] (Prevnar7) [facility] HEPATITIS A 2004-05-28 Completed [facility] 00:00:00 [facility] Pneumococcal 7 2004-05-28 Completed [facility] Conjugate, PCV7 00:00:00 [place] [facility] (Prevnar7) [facility] HEPATITIS A 2004-05-28 Completed [facility] 00:00:00 [facility] Pneumococcal 7 2004-05-28 Completed [facility] Conjugate, PCV7 00:00:00 [place] [facility] (Pre[facility]ar[facility] HEPATITIS A 2004-05-28 Completed [facility] 00:00:00 [facility] Pneumococcal 7 2004-05-28 Completed [facility] Conjugate, PCV7 00:00:00 [place] [facility] (Prevnar7) [facility] HEPATITIS A 2004-05-28 Completed [facility] 00:00:00 [facility] HEPATITIS A 2004-05-28 Completed [facility] 00:00:00 [facility] Pneumococcal 7 2004-05-28 Completed [facility] Conjugate, PCV7 00:00:00 [place] [facility] (Prevnar7) [facility] HEPATITIS A 2004-05-28 Completed [facility] 00:00:00 [facility] Pneumococcal 7 2004-05-28 Completed [facility] Conjugate, PCV7 00:00:00 [place] [facility] (Prevnar7) [facility] HEPATITIS A 2004-05-28 Completed [facility] 00:00:00 [facility] Pneumococcal 7 2004-05-28 Completed [facility] Conjugate, PCV7 00:00:00 [place] [facility] (Prevnar7) [facility] HEPATITIS A 2004-05-28 Completed [facility] 00:00:00 [facility] Pneumococcal 7 2004-05-28 Completed [facility] Conjugate, PCV7 00:00:00 [place] [facility] (Prevnar7) [facility] HEPATITIS A 2004-05-28 Completed [facility] 00:00:00 [facility] Pneumococcal 7 2004-05-28 Completed [facility] Conjugate, PCV7 00:00:00 [place] [facility] (Prevnar7) [facility] Pneumococcal 7 2004-05-28 Completed [facility] Conjugate, PCV7 00:00:00 [place] [facility] (Prevnar7) [facility] HEPATITIS A 2004-05-28 Completed [facility] 00:00:00 [facility] Pneumococcal 7 2004-05-28 Completed [facility] Conjugate, PCV7 00:00:00 [place] [facility] (Prevnar7) [facility] HEPATITIS A 2004-05-28 Completed [facility] 00:00:00 [facility] Pneumococcal 7 2004-05-28 Completed [facility] Conjugate, PCV7 00:00:00 [place] [facility] (Prevnar7) [facility] HEPATITIS A 2004-05-28 Completed [facility] 00:00:00 [facility] Pneumococcal 7 2004-05-28 Completed [facility] Conjugate, PCV7 00:00:00 [place] [facility] (Prevnar7) [facility] HEPATITIS A 2004-05-28 Completed [facility] 00:00:00 [facility] HEPATITIS A 2004-05-28 Completed [facility] 00:00:00 [facility] Pneumococcal 7 2004-05-28 Completed [facility] Conjugate, PCV7 00:00:00 [place] [facility] (Prevnar7) [facility] HEPATITIS A 2004-05-28 Completed [facility] 00:00:00 [facility] Pneumococcal 7 2004-05-28 Completed [facility] Conjugate, PCV7 00:00:00 [place] [facility] (Prevnar7) [facility] HEPATITIS A 2004-05-28 Completed [facility] 00:00:00 [facility] Pneumococcal 7 2004-05-28 Completed [facility] Conjugate, PCV7 00:00:00 [place] [facility] (Prevnar7) [facility] HEPATITIS A 2004-05-28 Completed [facility] 00:00:00 [facility] Pneumococcal 7 2004-05-28 Completed [facility] Conjugate, PCV7 00:00:00 [place] [facility] (Prevnar7) [facility] HEPATITIS A 2004-05-28 Completed [facility] 00:00:00 [facility] Pneumococcal 7 2004-05-28 Completed [facility] Conjugate, PCV7 00:00:00 [place] [facility] (Prevnar7) [facility] Pneumococcal 7 2004-05-28 Completed [facility] Conjugate, PCV7 00:00:00 [place] [facility] (Prevnar7) [facility] HEPATITIS A 2004-05-28 Completed [facility] 00:00:00 [facility] Pneumococcal 7 2004-05-28 Completed [facility] Conjugate, PCV7 00:00:00 [place] [facility] (Prevnar7) [facility] HEPATITIS A 2004-05-28 Completed [facility] 00:00:00 [facility] Pneumococcal 7 2004-05-28 Completed [facility] Conjugate, PCV7 00:00:00 [place] [facility] (Prevnar7) [facility] HEPATITIS A 2004-05-28 Completed [facility] 00:00:00 [facility] Pneumococcal 7 2004-05-28 Completed [facility] Conjugate, PCV7 00:00:00 [place] [facility] (Prevnar7) [facility] HEPATITIS A 2004-05-28 Completed [facility] 00:00:00 [facility] Pneumococcal 7 2004-05-28 Completed [facility] Conjugate, PCV7 00:00:00 [place] [facility] (Prevnar7) [facility] HEPATITIS A 2004-05-28 Completed [facility] 00:00:00 [facility] HEPATITIS A 2004-05-28 Completed [facility] 00:00:00 [facility] Pneumococcal 7 2004-05-28 Completed [facility] Conjugate, PCV7 00:00:00 [place] [facility] (Prevnar7) [facility] Pneumococcal 7 2004-05-28 Completed [facility] Conjugate, PCV7 00:00:00 [place] [facility] (Prevnar7) [facility] HEPATITIS A 2004-05-28 Completed [facility] 00:00:00 [facility] Pneumococcal 7 2004-05-28 Completed [facility] Conjugate, PCV7 00:00:00 [place] [facility] (Prevnar7) [facility] HEPATITIS A 2004-05-28 Completed [facility] 00:00:00 [facility] HEPATITIS A 2004-05-28 Completed [facility] 00:00:00 [facility] Pneumococcal 7 2004-05-28 Completed [facility] Conjugate, PCV7 00:00:00 [place] [facility] (Prevnar7) [facility] HEPATITIS A 2004-05-28 Completed [facility] 00:00:00 [facility] [facility] Pneumococcal 7 2004-05-28 Completed University of Conjugate, PCV7 00:00:00 [place] [facility] (Prevnar7) [facility] HEPATITIS A 2004-05-28 Completed University of 00:00:00 [facility] Pneumococcal 7 2004-05-28 Completed University of Conjugate, PCV7 00:00:00 [facility] (Prevnar7) [facility] HEPATITIS A 2004-05-28 Completed University of 00:00:00 [facility] Pneumococcal 7 2004-05-28 Completed [facility] of Conjugate, PCV7 00:00:00 [facility] (Prevnar7) [facility] HEPATITIS A 2004-05-28 Completed [facility] of 00:00:00 [facility] Pneumococcal 7 2004-05-28 Completed [facility] of Conjugate, PCV7 00:00:00 [facility] (Prevnar7) [facility] Pneumococcal 7 2004-05-28 Completed [facility] of Conjugate, PCV7 00:00:00 [facility] (Prevnar7) [facility] HEPATITIS A 2004-05-28 Completed [facility] of 00:00:00 [facility] Pneumococcal 7 2004-05-28 Completed [facility] of Conjugate, PCV7 00:00:00 [facility] (Prevnar7) [facility] HEPATITIS A 2004-05-28 Completed [facility] of 00:00:00 [facility] Pneumococcal 7 2004-05-28 Completed [facility] of Conjugate, PCV7 00:00:00 [facility] (Prevnar7) [facility] HEPATITIS A 2004-05-28 Completed [facility] of 00:00:00 [facility] Pneumococcal 7 2004-05-28 Completed [facility] of Conjugate, PCV7 00:00:00 [facility] (Prevnar7) [facility] HEPATITIS A 2004-05-28 Completed [facility] of 00:00:00 [facility] Pneumococcal 7 2004-05-28 Completed [facility] of Conjugate, PCV7 00:00:00 [facility] (Prevnar7) [facility] HEPATITIS A 2004-05-28 Completed [facility] of 00:00:00 [facility] Pneumococcal 7 2004-05-28 Completed [facility] of Conjugate, PCV7 00:00:00 [facility] (Prevnar7) [facility] HEPATITIS A 2004-05-28 Completed [facility] of 00:00:00 [facility] Pneumococcal 7 2004-05-28 Completed [facility] of Conjugate, PCV7 00:00:00 [facility] (Prevnar7) [facility] HEPATITIS A 2004-05-28 Completed [facility] of 00:00:00 [facility] HEPATITIS A 2004-05-28 Completed University of 00:00:00 [facility] Pneumococcal 7 2004-05-28 Completed University of Conjugate, PCV7 00:00:00 [facility] ical (Prevnar7) Branch HIB 4 Dose Schedule 2003-08-04 Completed Unive rsity of 00:00:00 [facility] DTAP 2003-08-04 Completed University of 00:00:00 [facility] HIB 4 Dose Schedule 2003-08-04 Completed Unive rsity of 00:00:00 [facility] DTAP 2003-08-04 Completed [facility] of 00:00:00 [facility] HIB 4 Dose Schedule 2003-08-04 Completed Unive rsity of 00:00:00 [facility] DTAP 2003-08-04 Completed University of 00:00:00 [facility] HIB 4 Dose Schedule 2003-08-04 Completed Unive rsity of 00:00:00 [facility] DTAP 2003-08-04 Completed [facility] of 00:00:00 [facility] HIB 4 Dose Schedule 2003-08-04 Completed Unive rsity of 00:00:00 [facility] DTAP 2003-08-04 Completed [facility] of 00:00:00 [facility] HIB 4 Dose Schedule 2003-08-04 Completed Unive rsity of 00:00:00 [facility] DTAP 2003-08-04 Completed [facility] of 00:00:00 [facility] HIB 4 Dose Schedule 2003-08-04 Completed Unive rsity of 00:00:00 [facility] DTAP 2003-08-04 Completed University of 00:00:00 [facility] HIB 4 Dose Schedule 2003-08-04 Completed Unive rsity of 00:00:00 [facility] DTAP 2003-08-04 Completed [facility] of 00:00:00 [facility] DTAP 2003-08-04 Completed [facility] of 00:00:00 [facility] HIB 4 Dose Schedule 2003-08-04 Completed Unive rsity of 00:00:00 [facility] HIB 4 Dose Schedule 2003-08-04 Completed Unive rsity of 00:00:00 [facility] DTAP 2003-08-04 Completed [facility] of 00:00:00 [facility] HIB 4 Dose Schedule 2003-08-04 Completed Unive rsity of 00:00:00 [facility] DTAP 2003-08-04 Completed [facility] of 00:00:00 [facility] HIB 4 Dose Schedule 2003-08-04 Completed Unive rsity of 00:00:00 [facility] DTAP 2003-08-04 Completed [facility] 00:00:00 [facility] HIB 4 Dose Schedule 2003-08-04 Completed Unive rsity of 00:00:00 [facility] DTAP 2003-08-04 Completed [facility] of 00:00:00 [facility] HIB 4 Dose Schedule 2003-08-04 Completed Unive rsity of 00:00:00 [facility] DTAP 2003-08-04 Completed [facility] of 00:00:00 [facility] HIB 4 Dose Schedule 2003-08-04 Completed Unive rsity of 00:00:00 [facility] DTAP 2003-08-04 Completed [facility] of 00:00:00 [facility] HIB 4 Dose Schedule 2003-08-04 Completed Unive rsity of 00:00:00 [facility] DTAP 2003-08-04 Completed [facility] of 00:00:00 [facility] HIB 4 Dose Schedule 2003-08-04 Completed Unive rsity of 00:00:00 [facility] DTAP 2003-08-04 Completed [facility] 00:00:00 [facility] HIB 4 Dose Schedule 2003-08-04 Completed Unive rsity of 00:00:00 [facility] DTAP 2003-08-04 Completed [facility] of 00:00:00 [facility] HIB 4 Dose Schedule 2003-08-04 Completed Unive rsity of 00:00:00 [facility] DTAP 2003-08-04 Completed [facility] of 00:00:00 [facility] HIB 4 Dose Schedule 2003-08-04 Completed Unive rsity of 00:00:00 [facility] DTAP 2003-08-04 Completed [facility] of 00:00:00 [facility] DTAP 2003-08-04 Completed [facility] of 00:00:00 [facility] HIB 4 Dose Schedule 2003-08-04 Completed Unive rsity of 00:00:00 [facility] HIB 4 Dose Schedule 2003-08-04 Completed Unive rsity of 00:00:00 [facility] DTAP 2003-08-04 Completed [facility] of 00:00:00 [facility] HIB 4 Dose Schedule 2003-08-04 Completed Unive rsity of 00:00:00 [facility] DTAP 2003-08-04 Completed [facility] of 00:00:00 [facility] HIB 4 Dose Schedule 2003-08-04 Completed Unive rsity of 00:00:00 [facility] DTAP 2003-08-04 Completed [facility] of 00:00:00 [facility] HIB 4 Dose Schedule 2003-08-04 Completed Unive rsity of 00:00:00 [facility] DTAP 2003-08-04 Completed [facility] of 00:00:00 [facility] HIB 4 Dose Schedule 2003-08-04 Completed Unive rsity of 00:00:00 [facility] DTAP 2003-08-04 Completed [facility] 00:00:00 [facility] HIB 4 Dose Schedule 2003-08-04 Completed Unive rsity of 00:00:00 [facility] DTAP 2003-08-04 Completed [facility] of 00:00:00 [facility] HIB 4 Dose Schedule 2003-08-04 Completed Unive rsity of 00:00:00 [facility] DTAP 2003-08-04 Completed [facility] of 00:00:00 [facility] HIB 4 Dose Schedule 2003-08-04 Completed Unive rsity of 00:00:00 [facility] DTAP 2003-08-04 Completed [facility] of 00:00:00 [facility] DTAP 2003-08-04 Completed [facility] of 00:00:00 [facility] HIB 4 Dose Schedule 2003-08-04 Completed Unive rsity of 00:00:00 [facility] HIB 4 Dose Schedule 2003-08-04 Completed Unive rsity of 00:00:00 [facility] DTAP 2003-08-04 Completed [facility] of 00:00:00 [facility] HIB 4 Dose Schedule 2003-08-04 Completed Unive rsity of 00:00:00 [facility] DTAP 2003-08-04 Completed [facility] of 00:00:00 [facility] HIB 4 Dose Schedule 2003-08-04 [...] Branch DTAP 2003-08-04 Completed [facility] of 00:00:00 [facility] HIB 4 Dose Schedule 2003-08-04 Completed Unive rsity of 00:00:00 [facility] HIB 4 Dose Schedule 2003-08-04 Completed Unive rsity of 00:00:00 [facility] DTAP 2003-08-04 Completed [facility] of 00:00:00 [facility] HIB 4 Dose Schedule 2003-08-04 Completed Unive rsity of 00:00:00 [facility] DTAP 2003-08-04 Completed [facility] of 00:00:00 [facility] HIB 4 Dose Schedule 2003-08-04 Completed Unive rsity of 00:00:00 [facility] DTAP 2003-08-04 Completed [facility] of 00:00:00 [facility] HIB 4 Dose Schedule 2003-08-04 Completed Unive rsity of 00:00:00 [facility] DTAP 2003-08-04 Completed University of [...] Schedule 2003-08-04 Completed Unive rsity of 00:00:00 [facility] HIB 4 Dose Schedule 2003-08-04 Completed Unive rsity of 00:00:00 [facility] DTAP 2003-08-04 Completed [facility] of 00:00:00 [facility] HIB 4 Dose Schedule 2003-08-04 Completed Unive rsity of 00:00:00 [facility] DTAP 2003-08-04 Completed [facility] of 00:00:00 [facility] HIB 4 Dose Schedule 2003-08-04 Completed Unive rsity of 00:00:00 [facility] DTAP 2003-08-04 Completed [facility] of 00:00:00 [facility] HIB 4 Dose Schedule 2003-08-04 Completed Unive rsity of 00:00:00 [facility] DTAP 2003-08-04 Completed [facility] of 00:00:00 [facility] HIB 4 Dose Schedule 2003-08-04 Completed Unive rsity of 00:00:00 [facility] DTAP 2003-08-04 Completed [facility] of 00:00:00 [facility] HIB 4 Dose Schedule 2003-08-04 Completed Unive rsity of 00:00:00 [facility] DTAP 2003-08-04 Completed [facility] of 00:00:00 [facility] HIB 4 Dose Schedule 2003-08-04 Completed Unive rsity of 00:00:00 [facility] DTAP 2003-08-04 Completed [facility] of 00:00:00 [facility] DTAP 2003-08-04 Completed [facility] of 00:00:00 [facility] HIB 4 Dose Schedule 2003-08-04 Completed Unive rsity of 00:00:00 [facility] HIB 4 Dose Schedule 2003-08-04 Completed Unive rsity of 00:00:00 [facility] DTAP 2003-08-04 Completed [facility] of 00:00:00 [facility] HIB 4 Dose Schedule 2003-08-04 Completed Unive rsity of 00:00:00 [facility] DTAP 2003-08-04 Completed [facility] of 00:00:00 [facility] HIB 4 Dose Schedule 2003-08-04 Completed Unive rsity of 00:00:00 [facility] DTAP 2003-08-04 Completed University of [...] Branch DTAP 2003-08-04 Completed [facility] of 00:00:00 [facility] HIB 4 Dose Schedule 2003-08-04 Completed Unive rsity of 00:00:00 [facility] DTAP 2003-08-04 Completed [facility] of 00:00:00 [facility] HIB 4 Dose Schedule 2003-08-04 Completed Unive rsity of 00:00:00 [facility] DTAP 2003-08-04 Completed [facility] of 00:00:00 [facility] DTAP 2003-08-04 Completed [facility] of 00:00:00 [facility] HIB 4 Dose Schedule 2003-08-04 Completed Unive rsity of 00:00:00 [facility] HIB 4 Dose Schedule 2003-08-04 Completed Unive rsity of 00:00:00 [facility] DTAP 2003-08-04 Completed [facility] of 00:00:00 [facility] HIB 4 Dose Schedule 2003-08-04 Completed Unive rsity of 00:00:00 [facility] DTAP 2003-08-04 Completed University of 00:00:00 [facility] HIB 4 Dose Schedule 2003-08-04 [...] Branch DTAP 2003-08-04 Completed University of 00:00:00 [facility] HIB 4 Dose Schedule 2003-08-04 Completed Unive rsity of 00:00:00 [facility] DTAP 2003-08-04 Completed [facility] of 00:00:00 [facility] DTAP 2003-08-04 Completed [facility] of 00:00:00 [facility] HIB 4 Dose Schedule 2003-08-04 Completed Unive rsity of 00:00:00 [facility] HIB 4 Dose Schedule 2003-08-04 Completed Unive rsity of 00:00:00 [facility] DTAP 2003-08-04 Completed [facility] of 00:00:00 [facility] HIB 4 Dose Schedule 2003-08-04 Completed Unive rsity of 00:00:00 [facility] DTAP 2003-08-04 Completed [facility] of 00:00:00 [facility] HIB 4 Dose Schedule 2003-08-04 Completed Unive rsity of 00:00:00 [facility] DTAP 2003-08-04 Completed [facility] of 00:00:00 [facility] HIB 4 Dose Schedule 2003-08-04 Completed Unive rsity of 00:00:00 [facility] DTAP 2003-08-04 Completed University of 00:00:00 [facility] HIB 4 Dose Schedule 2003-08-04 Completed Unive rsity of 00:00:00 [facility] DTAP 2003-08-04 Completed University of 00:00:00 [facility] HIB 4 Dose Schedule 2003-08-04 Completed Unive rsity of 00:00:00 [facility] DTAP 2003-08-04 Completed University of 00:00:00 [facility] HIB 4 Dose Schedule 2003-08-04 Completed Unive rsity of 00:00:00 [facility] DTAP 2003-08-04 Completed [facility] of 00:00:00 [facility] HIB 4 Dose Schedule 2003-08-04 Completed Unive rsity of 00:00:00 [facility] DTAP 2003-08-04 Completed [facility] of 00:00:00 [facility] DTAP 2003-08-04 Completed [facility] of 00:00:00 [facility] HIB 4 Dose Schedule 2003-08-04 Completed Unive rsity of 00:00:00 [facility] HIB 4 Dose Schedule 2003-08-04 Completed Unive rsity of 00:00:00 [facility] DTAP 2003-08-04 Completed [facility] of 00:00:00 [facility] HIB 4 Dose Schedule 2003-08-04 Completed Unive rsity of 00:00:00 [facility] DTAP 2003-08-04 Completed [facility] of 00:00:00 [facility] DTAP 2003-08-04 Completed [facility] of 00:00:00 [facility] HIB 4 Dose Schedule 2003-08-04 Completed Unive rsity of 00:00:00 [facility] HIB 4 Dose Schedule 2003-08-04 Completed Unive rsity of 00:00:00 [facility] DTAP 2003-08-04 Completed [facility] of 00:00:00 [facility] HIB 4 Dose Schedule 2003-08-04 Completed Unive rsity of 00:00:00 [facility] DTAP 2003-08-04 Completed [facility] of 00:00:00 [facility] HIB 4 Dose Schedule 2003-08-04 Completed Unive rsity of 00:00:00 [facility] DTAP 2003-08-04 Completed [facility] of 00:00:00 [facility] HIB 4 Dose Schedule 2003-08-04 Completed Unive rsity of 00:00:00 [facility] DTAP 2003-08-04 Completed [facility] of 00:00:00 [facility] HIB 4 Dose Schedule 2003-08-04 Completed Unive rsity of 00:00:00 [facility] DTAP 2003-08-04 Completed [facility] of 00:00:00 [facility] HIB 4 Dose Schedule 2003-08-04 Completed Unive rsity of 00:00:00 [facility] DTAP 2003-08-04 Completed [facility] of 00:00:00 [facility] HIB 4 Dose Schedule 2003-08-04 [...] Branch DTAP 2003-08-04 Completed University of 00:00:00 [facility] HIB 4 Dose Schedule 2003-08-04 Completed Unive rsity of 00:00:00 [facility] DTAP 2003-08-04 Completed [facility] of 00:00:00 [facility] HIB 4 Dose Schedule 2003-08-04 Completed Unive rsity of 00:00:00 [facility] DTAP 2003-08-04 Completed University of 00:00:00 [facility] DTAP 2003-08-04 Completed [facility] of 00:00:00 [facility] HIB 4 Dose Schedule 2003-08-04 Completed Unive rsity of 00:00:00 [facility] HIB 4 Dose Schedule 2003-08-04 Completed Unive rsity of 00:00:00 [facility] DTAP 2003-08-04 Completed University of 00:00:00 [facility] MMR 2003-05-05 Completed University of 00:00:00 [facility] Polio (IPV/OPV) 2003-05-05 Completed Universit y of 00:00:00 [facility] Pneumococcal 7 2003-05-05 Completed University of Conjugate, PCV7 00:00:00 [facility] ical (Prevnar7) [facility] 2003-05-05 Completed University of 00:00:00 [facility] 2003-05-05 Completed University of 00:00:00 [facility] Polio (IPV/OPV) 2003-05-05 Completed Universit y of 00:00:00 [facility] Pneumococcal 7 2003-05-05 Completed University of Conjugate, PCV7 00:00:00 [facility] ical (Prevnar7) [place] Polio (IPV/OPV) 2003-05-05 Completed Universit y of 00:00:00 [facility] MMR 2003-05-05 Completed University of 00:00:00 [facility] Polio (IPV/OPV) 2003-05-05 Completed Universit y of 00:00:00 [facility] Pneumococcal 7 2003-05-05 Completed University of Conjugate, PCV7 00:00:00 [facility] ical (Prevnar7) Branch MMR 2003-05-05 Completed University of 00:00:00 [facility] Polio (IPV/OPV) 2003-05-05 Completed Universit y of 00:00:00 [facility] Pneumococcal 7 2003-05-05 Completed [facility] of Conjugate, PCV7 00:00:00 [facility] (Prevnar7) [facility] Pneumococcal 7 2003-05-05 Completed [facility] of Conjugate, PCV7 00:00:00 [facility] (Prevnar7) [facility] 2003-05-05 Completed University of 00:00:00 [facility] Polio (IPV/OPV) 2003-05-05 Completed Universit y of 00:00:00 [facility] Pneumococcal 7 2003-05-05 Completed [facility] of Conjugate, PCV7 00:00:00 [facility] (Prevnar7) [facility] 2003-05-05 Completed University of 00:00:00 [facility] Polio (IPV/OPV) 2003-05-05 Completed Universit y of 00:00:00 [facility] Pneumococcal 7 2003-05-05 Completed University of Conjugate, PCV7 00:00:00 [facility] (Prevnar7) [facility] 2003-05-05 Completed University of 00:00:00 [facility] Polio (IPV/OPV) 2003-05-05 Completed Universit y of 00:00:00 [facility] Pneumococcal 7 2003-05-05 Completed [facility] of Conjugate, PCV7 00:00:00 [facility] (Prevnar7) [facility] 2003-05-05 Completed University of 00:00:00 [facility] Polio (IPV/OPV) 2003-05-05 Completed Universit y of 00:00:00 [facility] Pneumococcal 7 2003-05-05 Completed [facility] of Conjugate, PCV7 00:00:00 [facility] (Prevnar7) [facility] 2003-05-05 Completed University of 00:00:00 [facility] Polio (IPV/OPV) 2003-05-05 Completed Universit y of 00:00:00 [facility] Pneumococcal 7 2003-05-05 Completed [facility] of Conjugate, PCV7 00:00:00 [facility] (Prevnar7) [facility] 2003-05-05 Completed University of 00:00:00 [facility] Polio (IPV/OPV) 2003-05-05 Completed Universit y of 00:00:00 [facility] Pneumococcal 7 2003-05-05 Completed [facility] of Conjugate, PCV7 00:00:00 [facility] (Prevnar7) [facility] 2003-05-05 Completed University of 00:00:00 [facility] 2003-05-05 Completed University of 00:00:00 [facility] Polio (IPV/OPV) 2003-05-05 Completed Universit y of 00:00:00 [facility] Pneumococcal 7 2003-05-05 Completed [facility] of Conjugate, PCV7 00:00:00 [facility] (Prevnar7) [facility] 2003-05-05 Completed [facility] of 00:00:00 [facility] Polio (IPV/OPV) 2003-05-05 Completed Universit y of 00:00:00 [facility] Polio (IPV/OPV) 2003-05-05 Completed Universit y of 00:00:00 [facility] Pneumococcal 7 2003-05-05 Completed [facility] of Conjugate, PCV7 00:00:00 [facility] (Prevnar7) [facility] 2003-05-05 Completed University of 00:00:00 [facility] Polio (IPV/OPV) 2003-05-05 Completed Universit y of 00:00:00 [facility] Pneumococcal 7 2003-05-05 Completed [facility] Conjugate, PCV7 00:00:00 [facility] (Prevnar7) [facility] Pneumococcal 7 2003-05-05 Completed [facility] of Conjugate, PCV7 00:00:00 [facility] (Prevnar[facility]) [facility] 2003-05-05 Completed [facility] of 00:00:00 [facility] Polio (IPV/OPV) 2003-05-05 Completed Universit y of 00:00:00 [facility] Pneumococcal 7 2003-05-05 Completed [facility] of Conjugate, PCV7 00:00:00 [facility] (Prevnar7) [facility] 2003-05-05 Completed University of 00:00:00 [facility] Polio (IPV/OPV) 2003-05-05 Completed Universit y of 00:00:00 [facility] Pneumococcal 7 2003-05-05 Completed [facility] of Conjugate, PCV7 00:00:00 [facility] (Prevnar7) [facility] 2003-05-05 Completed University of 00:00:00 [facility] Polio (IPV/OPV) 2003-05-05 Completed Universit y of 00:00:00 [facility] Pneumococcal 7 2003-05-05 Completed [facility] of Conjugate, PCV7 00:00:00 [facility] (Prevnar7) [facility] 2003-05-05 Completed University of 00:00:00 [facility] Polio (IPV/OPV) 2003-05-05 Completed Universit y of 00:00:00 [facility] Pneumococcal 7 2003-05-05 Completed [facility] of Conjugate, PCV7 00:00:00 [facility] (Prevnar7) [facility] 2003-05-05 Completed [facility] of 00:00:00 [facility] Polio (IPV/OPV) 2003-05-05 Completed Universit y of 00:00:00 [facility] Pneumococcal 7 2003-05-05 Completed [facility] of Conjugate, PCV7 00:00:00 [facility] (Prevnar7) [facility] 2003-05-05 Completed University of 00:00:00 [facility] Polio (IPV/OPV) 2003-05-05 Completed Universit y of 00:00:00 [facility] Pneumococcal 7 2003-05-05 Completed [facility] of Conjugate, PCV7 00:00:00 [facility] (Prevnar7) [facility] 2003-05-05 Completed [facility] of 00:00:00 [facility] Polio (IPV/OPV) 2003-05-05 Completed Universit y of 00:00:00 [facility] Pneumococcal 7 2003-05-05 Completed [facility] of Conjugate, PCV7 00:00:00 [facility] (Prevnar7) [facility] 2003-05-05 Completed [facility] of 00:00:00 [facility] Polio (IPV/OPV) 2003-05-05 Completed [facility]it y of 00:00:00 [facility] Pneumococcal 7 2003-05-05 Completed [facility] of Conjugate, PCV7 00:00:00 [facility] (Prevnar7) [facility] 2003-05-05 Completed [facility] of 00:00:00 [facility] 2003-05-05 Completed University of 00:00:00 [facility] Polio (IPV/OPV) 2003-05-05 Completed Universit y of 00:00:00 [facility] Pneumococcal 7 2003-05-05 Completed [facility] of Conjugate, PCV7 00:00:00 [facility] (Prevnar7) [facility] Polio (IPV/OPV) 2003-05-05 Completed [facility]it [facility] 00:00:00 [facility] 2003-05-05 Completed University of 00:00:00 [facility] Polio (IPV/OPV) 2003-05-05 Completed Universit y of 00:00:00 [facility] Pneumococcal 7 2003-05-05 Completed [facility] of Conjugate, PCV7 00:00:00 [facility] (Prevnar7) [facility] 2003-05-05 Completed [facility] of 00:00:00 [facility] Polio (IPV/OPV) 2003-05-05 Completed [facility]it y [facility] 00:00:00 [facility] Pneumococcal 7 2003-05-05 Completed [facility] Conjugate, PCV7 00:00:00 [facility] (Prevnar7) [facility] Pneumococcal 7 2003-05-05 Completed [facility] of Conjugate, PCV7 00:00:00 [facility] (Prevnar7) [facility] 2003-05-05 Completed [facility] of 00:00:00 [facility] Polio (IPV/OPV) 2003-05-05 Completed Universit y [facility] 00:00:00 [facility] Pneumococcal 7 2003-05-05 Completed [facility] of Conjugate, PCV7 00:00:00 [facility] (Pre[facility]ar[facility]) [facility] 2003-05-05 Completed [facility] 00:00:00 [facility] Polio (IPV/OPV) 2003-05-05 Completed [facility] 00:00:00 [facility] Pneumococcal 7 2003-05-05 Completed [facility] of Conjugate, PCV7 00:00:00 [facility] 2003-05-05 Completed [facility] 00:00:00 [facility] Polio (IPV/OPV) 2003-05-05 Completed [facility] 00:00:00 [facility] Pneumococcal 7 2003-05-05 Completed [facility] Conjugate, PCV7 00:00:00 [facility] 2003-05-05 Completed [facility] 00:00:00 [facility] Polio (IPV/OPV) 2003-05-05 Completed [facility] 00:00:00 [facility] Pneumococcal 7 2003-05-05 Completed [facility] Conjugate, PCV7 00:00:00 [facility] 2003-05-05 Completed [facility] 00:00:00 [facility] Polio (IPV/OPV) 2003-05-05 Completed [facility] 00:00:00 [facility] Pneumococcal 7 2003-05-05 Completed [facility] Conjugate, PCV7 00:00:00 [facility] 2003-05-05 Completed [facility] 00:00:00 [facility] 2003-05-05 Completed [facility] of 00:00:00 [facility] Polio (IPV/OPV) 2003-05-05 Completed [facility] 00:00:00 [facility] Pneumococcal 7 2003-05-05 Completed [facility] Conjugate, PCV7 00:00:00 [facility] (Pre[facility] Polio (IPV/OPV) 2003-05-05 Completed [facility] 00:00:00 [facility] 2003-05-05 Completed [facility] of 00:00:00 [facility] Polio (IPV/OPV) 2003-05-05 Completed [facility] 00:00:00 [facility] Pneumococcal 7 2003-05-05 Completed [facility] Conjugate, PCV7 00:00:00 [facility] 2003-05-05 Completed [facility] 00:00:00 [facility] Polio (IPV/OPV) 2003-05-05 Completed [facility] 00:00:00 [facility] Pneumococcal 7 2003-05-05 Completed [facility] Conjugate, PCV7 00:00:00 [facility] (Pre[facility] Pneumococcal 7 2003-05-05 Completed [facility] Conjugate, PCV7 00:00:00 [facility] 2003-05-05 Completed [facility] 00:00:00 [facility] Polio (IPV/OPV) 2003-05-05 Completed [facility] 00:00:00 [facility] Pneumococcal 7 2003-05-05 Completed [facility] Conjugate, PCV7 00:00:00 [facility] 2003-05-05 Completed [facility] 00:00:00 [facility] Polio (IPV/OPV) 2003-05-05 Completed [facility] 00:00:00 [facility] Pneumococcal 7 2003-05-05 Completed [facility] Conjugate, PCV7 00:00:00 [facility] 2003-05-05 Completed [facility] 00:00:00 [facility] Polio (IPV/OPV) 2003-05-05 Completed [facility] 00:00:00 [facility] Pneumococcal 7 2003-05-05 Completed [facility] Conjugate, PCV7 00:00:00 [facility] 2003-05-05 Completed [facility] 00:00:00 [facility] Polio (IPV/OPV) 2003-05-05 Completed [facility] 00:00:00 [facility] Pneumococcal 7 2003-05-05 Completed [facility] Conjugate, PCV7 00:00:00 [facility] 2003-05-05 Completed [facility] 00:00:00 [facility] Polio (IPV/OPV) 2003-05-05 Completed [facility] 00:00:00 [facility] Pneumococcal 7 2003-05-05 Completed [facility] Conjugate, PCV7 00:00:00 [facility] 2003-05-05 Completed [facility] 00:00:00 [facility] Polio (IPV/OPV) 2003-05-05 Completed [facility] 00:00:00 [facility] Pneumococcal 7 2003-05-05 Completed [facility] Conjugate, PCV7 00:00:00 [facility] 2003-05-05 Completed [facility] 00:00:00 [facility] Polio (IPV/OPV) 2003-05-05 Completed [facility] 00:00:00 [facility] 2003-05-05 Completed [facility] of 00:00:00 [facility] Pneumococcal 7 2003-05-05 Completed [facility] Conjugate, PCV7 00:00:00 [facility]Pre[facility] 2003-05-05 Completed [facility] 00:00:00 [facility] Polio (IPV/OPV) 2003-05-05 Completed [facility] 00:00:00 [facility] Pneumococcal 7 2003-05-05 Completed [facility] Conjugate, PCV7 00:00:00 [facility] (Pre[facility]ar[facility] Polio (IPV/OPV) 2003-05-05 Completed [facility] 00:00:00 [facility] 2003-05-05 Completed [facility] of 00:00:00 [facility] Polio (IPV/OPV) 2003-05-05 Completed [facility] 00:00:00 [facility] Pneumococcal 7 2003-05-05 Completed [facility] Conjugate, PCV7 00:00:00 [facility]Pre[facility] Pneumococcal 7 2003-05-05 Completed [facility] Conjugate, PCV7 00:00:00 [facility] 2003-05-05 Completed [facility] 00:00:00 [facility] Polio (IPV/OPV) 2003-05-05 Completed [facility] 00:00:00 [facility] Pneumococcal 7 2003-05-05 Completed [facility] Conjugate, PCV7 00:00:00 [facility] 2003-05-05 Completed [facility] of 00:00:00 [facility] Polio (IPV/OPV) 2003-05-05 Completed [facility] 00:00:00 [facility] Pneumococcal 7 2003-05-05 Completed [facility] Conjugate, PCV7 00:00:00 [facility]Pre[facility] 2003-05-05 Completed [facility] 00:00:00 [facility] Polio (IPV/OPV) 2003-05-05 Completed [facility] 00:00:00 [facility] Pneumococcal 7 2003-05-05 Completed [facility] Conjugate, PCV7 00:00:00 [facility]Pre[facility] 2003-05-05 Completed [facility] 00:00:00 [facility] Polio (IPV/OPV) 2003-05-05 Completed [facility] 00:00:00 [facility] Pneumococcal 7 2003-05-05 Completed [facility] Conjugate, PCV7 00:00:00 [facility]Pre[facility] 2003-05-05 Completed [facility] 00:00:00 [facility] 2003-05-05 Completed [facility] of 00:00:00 [facility] Polio (IPV/OPV) 2003-05-05 Completed [facility] 00:00:00 [facility] Polio (IPV/OPV) 2003-05-05 Completed [facility] 00:00:00 [facility] Pneumococcal 7 2003-05-05 Completed [facility] Conjugate, PCV7 00:00:00 [facility] 2003-05-05 Completed [facility] 00:00:00 [facility] Polio (IPV/OPV) 2003-05-05 Completed [facility] 00:00:00 [facility] Pneumococcal 7 2003-05-05 Completed [facility] Conjugate, PCV7 00:00:00 [facility] (Prevnar[facility] Pneumococcal 7 2003-05-05 Completed [facility] Conjugate, PCV7 00:00:00 [facility]Pre[facility]ar[facility] 2003-05-05 Completed [facility] 00:00:00 [facility] Polio (IPV/OPV) 2003-05-05 Completed [facility] 00:00:00 [facility] Pneumococcal 7 2003-05-05 Completed [facility] Conjugate, PCV7 00:00:00 [facility]Pre[facility] 2003-05-05 Completed [facility] 00:00:00 [facility] Polio (IPV/OPV) 2003-05-05 Completed [facility] 00:00:00 [facility] Pneumococcal 7 2003-05-05 Completed [facility] Conjugate, PCV7 00:00:00 [facility] (Pre[facility]ar[facility] 2003-05-05 Completed [facility] of 00:00:00 [facility] Polio (IPV/OPV) 2003-05-05 Completed [facility] 00:00:00 [facility] Pneumococcal 7 2003-05-05 Completed [facility] Conjugate, PCV7 00:00:00 [facility]Pre[facility]ar[facility] 2003-05-05 Completed [facility] 00:00:00 [facility] Polio (IPV/OPV) 2003-05-05 Completed [facility] 00:00:00 [facility] Pneumococcal 7 2003-05-05 Completed [facility] Conjugate, PCV7 00:00:00 [facility] (Prevnar[facility] 2003-05-05 Completed [facility] 00:00:00 [facility] Polio (IPV/OPV) 2003-05-05 Completed [facility] 00:00:00 [facility] Pneumococcal 7 2003-05-05 Completed [facility] Conjugate, PCV7 00:00:00 [facility] (Pre[facility]ar[facility] 2003-05-05 Completed [facility] 00:00:00 [facility] 2003-05-05 Completed [facility] of 00:00:00 [facility] Polio (IPV/OPV) 2003-05-05 Completed [facility] 00:00:00 [facility] Pneumococcal 7 2003-05-05 Completed [facility] Conjugate, PCV7 00:00:00 [facility] (Prevnar7) [facility] Polio (IPV/OPV) 2003-05-05 Completed [facility] 00:00:00 [facility] 2003-05-05 Completed [facility] of 00:00:00 [facility] Polio (IPV/OPV) 2003-05-05 Completed [facility] 00:00:00 [facility] Pneumococcal 7 2003-05-05 Completed [facility] Conjugate, PCV7 00:00:00 [facility] (Pre[facility]ar[facility] 2003-05-05 Completed [facility] 00:00:00 [facility] Polio (IPV/OPV) 2003-05-05 Completed [facility] 00:00:00 [facility] Pneumococcal 7 2003-05-05 Completed [facility] Conjugate, PCV7 00:00:00 [place] [facility] (Pre[facility] Pneumococcal 7 2003-05-05 Completed [facility] Conjugate, PCV7 00:00:00 [facility] (Prevnar[facility] 2003-05-05 Completed [facility] 00:00:00 [facility] Polio (IPV/OPV) 2003-05-05 Completed [facility] 00:00:00 [facility] Pneumococcal 7 2003-05-05 Completed [facility] Conjugate, PCV7 00:00:00 [place] [facility] (Prevnar7) [facility] 2003-05-05 Completed [facility] 00:00:00 [facility] Polio (IPV/OPV) 2003-05-05 Completed [facility] 00:00:00 [facility] Pneumococcal 7 2003-05-05 Completed [facility] Conjugate, PCV7 00:00:00 [facility] (Prevnar7) [facility] 2003-05-05 Completed [facility] 00:00:00 [facility] Polio (IPV/OPV) 2003-05-05 Completed [facility] 00:00:00 [facility] Pneumococcal 7 2003-05-05 Completed [facility] Conjugate, PCV7 00:00:00 [facility] (Prevnar[facility] 2003-05-05 Completed [facility] 00:00:00 [facility] Polio (IPV/OPV) 2003-05-05 Completed [facility] 00:00:00 [facility] Pneumococcal 7 2003-05-05 Completed [facility] Conjugate, PCV7 00:00:00 [facility] (Prevnar[facility] 2003-05-05 Completed [facility] 00:00:00 [facility] Polio (IPV/OPV) 2003-05-05 Completed [facility] 00:00:00 [facility] Pneumococcal 7 2003-05-05 Completed [facility] Conjugate, PCV7 00:00:00 [place] [facility] (Pre[facility] 2003-05-05 Completed [facility] 00:00:00 [facility] Polio (IPV/OPV) 2003-05-05 Completed [facility] 00:00:00 [facility] Pneumococcal 7 2003-05-05 Completed [facility] Conjugate, PCV7 00:00:00 [facility] (Prevnar[facility] 2003-05-05 Completed [facility] 00:00:00 [facility] 2003-05-05 Completed [facility] of 00:00:00 [facility] Polio (IPV/OPV) 2003-05-05 Completed [facility] 00:00:00 [facility] Pneumococcal 7 2003-05-05 Completed [facility] Conjugate, PCV7 00:00:00 [facility] (Prevnar7) [place] Polio (IPV/OPV) 2003-05-05 Completed [facility] 00:00:00 [facility] 2003-05-05 Completed [facility] 00:00:00 [facility] Polio (IPV/OPV) 2003-05-05 Completed [facility] 00:00:00 [facility] Pneumococcal 7 2003-05-05 Completed [facility] Conjugate, PCV7 00:00:00 [facility] (Prevnar7) [facility] Pneumococcal 7 2003-05-05 Completed [facility] Conjugate, PCV7 00:00:00 [facility] (Prevnar[facility] 2003-05-05 Completed [facility] 00:00:00 [facility] Polio (IPV/OPV) 2003-05-05 Completed [facility] 00:00:00 [facility] Pneumococcal 7 2003-05-05 Completed [facility] Conjugate, PCV7 00:00:00 [place] [facility] (Prevnar7) [facility] 2003-05-05 Completed [facility] 00:00:00 [facility] Polio (IPV/OPV) 2003-05-05 Completed [facility] 00:00:00 [facility] Pneumococcal 7 2003-05-05 Completed [facility] Conjugate, PCV7 00:00:00 [facility]Prevnar[facility] 2003-05-05 Completed [facility] 00:00:00 [facility] Polio (IPV/OPV) 2003-05-05 Completed [facility] 00:00:00 [facility] Pneumococcal 7 2003-05-05 Completed [facility] Conjugate, PCV7 00:00:00 [facility]Prevnar[facility] 2003-05-05 Completed [facility] 00:00:00 [facility] Polio (IPV/OPV) 2003-05-05 Completed [facility] 00:00:00 [facility] Pneumococcal 7 2003-05-05 Completed [facility] Conjugate, PCV7 00:00:00 [facility] (Prevnar[facility]) [facility] 2003-05-05 Completed [facility] 00:00:00 [facility] Polio (IPV/OPV) 2003-05-05 Completed [facility] 00:00:00 [facility] Pneumococcal 7 2003-05-05 Completed [facility] Conjugate, PCV7 00:00:00 [facility] (Prevnar[facility]) [facility] 2003-05-05 Completed [facility] 00:00:00 [facility] Polio (IPV/OPV) 2003-05-05 Completed [facility] 00:00:00 [facility] Pneumococcal 7 2003-05-05 Completed [facility] Conjugate, PCV7 00:00:00 [facility] (Prevnar[facility] 2003-05-05 Completed [facility] 00:00:00 [facility] 2003-05-05 Completed [facility] 00:00:00 [facility] Polio (IPV/OPV) 2003-05-05 Completed [facility] 00:00:00 [facility] Pneumococcal 7 2003-05-05 Completed [facility] Conjugate, PCV7 00:00:00 [facility] (Prevnar7) [facility] Polio (IPV/OPV) 2003-05-05 Completed [facility] 00:00:00 [facility] 2003-05-05 Completed [facility] 00:00:00 [facility] Polio (IPV/OPV) 2003-05-05 Completed [facility] 00:00:00 [facility] Pneumococcal 7 2003-05-05 Completed [facility] Conjugate, PCV7 00:00:00 [facility] (Prevnar7) [facility] Pneumococcal 7 2003-05-05 Completed [facility] Conjugate, PCV7 00:00:00 [facility] (Prevnar[facility]) [facility] 2003-05-05 Completed [facility] 00:00:00 [facility] Polio (IPV/OPV) 2003-05-05 Completed [facility] 00:00:00 [facility] Pneumococcal 7 2003-05-05 Completed [facility] Conjugate, PCV7 00:00:00 [facility] (Prevnar7) [facility] 2003-05-05 Completed [facility] 00:00:00 [facility] Polio (IPV/OPV) 2003-05-05 Completed [facility] 00:00:00 [facility] Pneumococcal 7 2003-05-05 Completed [facility] Conjugate, PCV7 00:00:00 [facility] (Prevnar7) [facility] 2003-05-05 Completed [facility] 00:00:00 [facility] Polio (IPV/OPV) 2003-05-05 Completed [facility] 00:00:00 [facility] Pneumococcal 7 2003-05-05 Completed [facility] Conjugate, PCV7 00:00:00 [facility] (Prevnar7) [facility] 2003-05-05 Completed [facility] 00:00:00 [facility] Polio (IPV/OPV) 2003-05-05 Completed [facility] 00:00:00 [facility] Pneumococcal 7 2003-05-05 Completed [facility] Conjugate, PCV7 00:00:00 [place] [facility] (Prevnar7) [facility] 2003-05-05 Completed [facility] 00:00:00 [facility] Polio (IPV/OPV) 2003-05-05 Completed [facility] 00:00:00 [facility] Pneumococcal 7 2003-05-05 Completed [facility] Conjugate, PCV7 00:00:00 [place] [facility] (Prevnar7) [facility] 2003-05-05 Completed [facility] 00:00:00 [facility] Polio (IPV/OPV) 2003-05-05 Completed [facility] 00:00:00 [facility] Pneumococcal 7 2003-05-05 Completed [facility] Conjugate, PCV7 00:00:00 [place] [facility] (Prevnar7) [facility] 2003-05-05 Completed [facility] 00:00:00 [facility] Polio (IPV/OPV) 2003-05-05 Completed [facility] 00:00:00 [facility] Pneumococcal 7 2003-05-05 Completed [facility] Conjugate, PCV7 00:00:00 [place] [facility] (Prevnar7) [facility] 2003-05-05 Completed [facility] 00:00:00 [facility] Polio (IPV/OPV) 2003-05-05 Completed [facility] 00:00:00 [facility] Pneumococcal 7 2003-05-05 Completed [facility] Conjugate, PCV7 00:00:00 [facility] (Prevnar7) [facility] 2003-05-05 Completed [facility] 00:00:00 [facility] Polio (IPV/OPV) 2003-05-05 Completed [facility] 00:00:00 [facility] Pneumococcal 7 2003-05-05 Completed [facility] Conjugate, PCV7 00:00:00 [facility] (Prevnar7) [facility] 2003-05-05 Completed [facility] 00:00:00 [facility] Polio (IPV/OPV) 2003-05-05 Completed [facility] 00:00:00 [facility] Pneumococcal 7 2003-05-05 Completed [facility] Conjugate, PCV7 00:00:00 [facility] (Prevnar7) [facility] 2003-05-05 Completed [facility] 00:00:00 [facility] 2003-05-05 Completed [facility] 00:00:00 [facility] Polio (IPV/OPV) 2003-05-05 Completed [facility] 00:00:00 [facility] Pneumococcal 7 2003-05-05 Completed [facility] Conjugate, PCV7 00:00:00 [facility] (Prevnar7) [facility] Polio (IPV/OPV) 2003-05-05 Completed [facility] 00:00:00 [facility] 2003-05-05 Completed [facility] of 00:00:00 [facility] Polio (IPV/OPV) 2003-05-05 Completed [facility] 00:00:00 [facility] Pneumococcal 7 2003-05-05 Completed [facility] Conjugate, PCV7 00:00:00 [facility] (Prevnar[facility]) [facility] 2003-05-05 Completed [facility] 00:00:00 [facility] Pneumococcal 7 2003-05-05 Completed [facility] Conjugate, PCV7 00:00:00 [facility] (Prevnar7) [facility] Polio (IPV/OPV) 2003-05-05 Completed [facility] 00:00:00 [facility] Pneumococcal 7 2003-05-05 Completed [facility] Conjugate, PCV7 00:00:00 [facility] (Prevnar7) [facility] 2003-05-05 Completed [facility] 00:00:00 [facility] Polio (IPV/OPV) 2003-05-05 Completed [facility] 00:00:00 [facility] Pneumococcal 7 2003-05-05 Completed [facility] Conjugate, PCV7 00:00:00 [facility] (Prevnar7) [facility] 2003-05-05 Completed [facility] 00:00:00 [facility] Polio (IPV/OPV) 2003-05-05 Completed [facility] 00:00:00 [facility] Pneumococcal 7 2003-05-05 Completed [facility] Conjugate, PCV7 00:00:00 [facility] (Prevnar7) [facility] 2003-05-05 Completed [facility] 00:00:00 [facility] Polio (IPV/OPV) 2003-05-05 Completed [facility] 00:00:00 [facility] Pneumococcal 7 2003-05-05 Completed [facility] Conjugate, PCV7 00:00:00 [facility] (Prevnar[facility]) [facility] 2003-05-05 Completed [facility] 00:00:00 [facility] Polio (IPV/OPV) 2003-05-05 Completed [facility] 00:00:00 [facility] Pneumococcal 7 2003-05-05 Completed [facility] Conjugate, PCV7 00:00:00 [facility] (Prevnar7) [facility] 2003-05-05 Completed [facility] 00:00:00 [facility] Polio (IPV/OPV) 2003-05-05 Completed [facility] 00:00:00 [facility] Pneumococcal 7 2003-05-05 Completed [facility] of Conjugate, PCV7 00:00:00 [facility] ical (Prevnar7) Branch [facility] 2003-05-05 Completed [facility] 00:00:00 [facility] Polio (IPV/OPV) 2003-05-05 Completed [facility] 00:00:00 [facility] Pneumococcal 7 2003-05-05 Completed [facility] Conjugate, PCV7 00:00:00 [facility] (Prevnar[facility]) [facility] 2003-05-05 Completed [facility] 00:00:00 [facility] Polio (IPV/OPV) 2003-05-05 Completed [facility] 00:00:00 [facility] Pneumococcal 7 2003-05-05 Completed [facility] Conjugate, PCV7 00:00:00 [facility] (Pre[facility]ar[facility]) [facility] HIB 4 Dose Schedule 2002 Completed [facility] 00:00:00 [facility] Hep B, Adol or Pedi 2002 Completed [facility] Dosage 00:00:00 [facility] Hep B, Adol or Pedi 2002 Completed [facility] Dosage 00:00:00 [facility] DTAP 2002 Completed [facility] 00:00:00 [facility] HIB 4 Dose Schedule 2002 Completed [facility] 00:00:00 [facility] Hep B, Adol or Pedi 2002 Completed [facility] Dosage 00:00:00 [facility] DTAP 2002 Completed [facility] 00:00:00 [facility] HIB 4 Dose Schedule 2002 Completed [facility] 00:00:00 [facility] Hep B, Adol or Pedi 2002 Completed [facility] of Dosage 00:00:00 [facility] DTAP 2002 Completed [facility] 00:00:00 [facility] HIB 4 Dose Schedule 2002 Completed [facility] 00:00:00 [facility] Hep B, Adol or Pedi 2002 Completed [facility] Dosage 00:00:00 [facility] DTAP 2002 Completed [facility] 00:00:00 [facility] HIB 4 Dose Schedule 2002 Completed [facility] 00:00:00 [facility] Hep B, Adol or Pedi 2002 Completed [facility] of Dosage 00:00:00 [facility] DTAP 2002 Completed [facility] 00:00:00 [facility] HIB 4 Dose Schedule 2002 Completed [facility] 00:00:00 [facility] Hep B, Adol or Pedi 2002 Completed [facility] of Dosage 00:00:00 [facility] DTAP 2002 Completed [facility] 00:00:00 [facility] HIB 4 Dose Schedule 2002 Completed [facility] 00:00:00 [facility] Hep B, Adol or Pedi 2002 Completed [facility] of Dosage 00:00:00 [facility] DTAP 2002 Completed [facility] 00:00:00 [facility] HIB 4 Dose Schedule 2002 Completed [facility]ive [facility] of 00:00:00 [facility] Hep B, Adol or Pedi 2002 Completed [facility] Dosage 00:00:00 [facility] DTAP 2002 Completed [facility] 00:00:00 [facility] DTAP 2002 Completed [facility] 00:00:00 [facility] HIB 4 Dose Schedule 2002 Completed [facility] 00:00:00 [facility] Hep B, Adol or Pedi 2002 Completed [facility] Dosage 00:00:00 [facility] HIB 4 Dose Schedule 2002 Completed [facility] 00:00:00 [facility] DTAP 2002 Completed [facility] 00:00:00 [facility] HIB 4 Dose Schedule 2002 Completed [facility] 00:00:00 [facility] Hep B, Adol or Pedi 2002 Completed [facility] Dosage 00:00:00 [facility] Hep B, Adol or Pedi 2002 Completed [facility] Dosage 00:00:00 [facility] DTAP 2002 Completed [facility] 00:00:00 [facility] HIB 4 Dose Schedule 2002 Completed [facility] 00:00:00 [facility] Hep B, Adol or Pedi 2002 Completed [facility] Dosage 00:00:00 [facility] DTAP 2002 Completed [facility] 00:00:00 [facility] HIB 4 Dose Schedule 2002 Completed [facility] 00:00:00 [facility] Hep B, Adol or Pedi 2002 Completed [facility] Dosage 00:00:00 [facility] DTAP 2002 Completed [facility] 00:00:00 [facility] HIB 4 Dose Schedule 2002 Completed [facility] 00:00:00 [facility] Hep B, Adol or Pedi 2002 Completed [facility] Dosage 00:00:00 [facility] DTAP 2002 Completed [facility] 00:00:00 [facility] HIB 4 Dose Schedule 2002 Completed [facility] 00:00:00 [facility] Hep B, Adol or Pedi 2002 Completed [facility] Dosage 00:00:00 [facility] DTAP 2002 Completed [facility] 00:00:00 [facility] HIB 4 Dose Schedule 2002 Completed [facility] 00:00:00 [facility] Hep B, Adol or Pedi 2002 Completed [facility] Dosage 00:00:00 [facility] DTAP 2002 Completed [facility] 00:00:00 [facility] HIB 4 Dose Schedule 2002 Completed [facility] 00:00:00 [facility] Hep B, Adol or Pedi 2002 Completed [facility] Dosage 00:00:00 [facility] DTAP 2002 Completed [facility] 00:00:00 [facility] HIB 4 Dose Schedule 2002 Completed [facility] 00:00:00 [facility] Hep B, Adol or Pedi 2002 Completed [facility] Dosage 00:00:00 [facility] DTAP 2002 Completed [facility] 00:00:00 [facility] HIB 4 Dose Schedule 2002 Completed [facility] 00:00:00 [facility] Hep B, Adol or Pedi 2002 Completed [facility] Dosage 00:00:00 [facility] DTAP 2002 Completed [facility] 00:00:00 [facility] DTAP 2002 Completed [facility] 00:00:00 [facility] HIB 4 Dose Schedule 2002 Completed [facility] 00:00:00 [facility] Hep B, Adol or Pedi 2002 Completed [facility] Dosage 00:00:00 [facility] DTAP 2002 Completed [facility] 00:00:00 [facility] HIB 4 Dose Schedule 2002 Completed [facility] 00:00:00 [facility] HIB 4 Dose Schedule 2002 Completed [facility] 00:00:00 [facility] Hep B, Adol or Pedi 2002 Completed [facility] Dosage 00:00:00 [facility] DTAP 2002 Completed [facility] 00:00:00 [facility] HIB 4 Dose Schedule 2002 Completed [facility] 00:00:00 [facility] Hep B, Adol or Pedi 2002 Completed [facility] Dosage 00:00:00 [facility] Hep B, Adol or Pedi 2002 Completed [facility] Dosage 00:00:00 [facility] DTAP 2002 Completed [facility] 00:00:00 [facility] HIB 4 Dose Schedule 2002 [...] 2002 Completed [facility] Dosage 00:00:00 [facility] DTAP 2002 Completed [facility] 00:00:00 [facility] HIB 4 Dose Schedule 2002 Completed [facility] 00:00:00 [facility] Hep B, Adol or Pedi 2002 Completed [facility] Dosage 00:00:00 [facility] DTAP 2002 Completed [facility] 00:00:00 [facility] HIB 4 Dose Schedule 2002 Completed [facility] 00:00:00 [facility] Hep B, Adol or Pedi 2002 Completed [facility] Dosage 00:00:00 [facility] DTAP 2002 Completed [facility] 00:00:00 [facility] HIB 4 Dose Schedule 2002 Completed [facility] 00:00:00 [facility] Hep B, Adol or Pedi 2002 Completed [facility] Dosage 00:00:00 [facility] DTAP 2002 Completed [facility] 00:00:00 [facility] HIB 4 Dose Schedule 2002 Completed [facility] 00:00:00 [facility] Hep B, Adol or Pedi 2002 Completed [facility] Dosage 00:00:00 [facility] DTAP 2002 Completed [facility] [...] 2002 Completed [facility] Dosage 00:00:00 [facility] DTAP 2002 Completed [facility] 00:00:00 [facility] HIB 4 Dose Schedule 2002 Completed [facility] 00:00:00 [facility] Hep B, Adol or Pedi 2002 Completed [facility] Dosage 00:00:00 [facility] DTAP 2002 Completed [facility] 00:00:00 [facility] HIB 4 Dose Schedule 2002 Completed [facility] 00:00:00 [facility] Hep B, Adol or Pedi 2002 Completed [facility] Dosage 00:00:00 [facility] DTAP 2002 Completed [facility] 00:00:00 [facility] HIB 4 Dose Schedule 2002 Completed [facility] 00:00:00 [facility] Hep B, Adol or Pedi 2002 Completed [facility] Dosage 00:00:00 [facility] DTAP 2002 Completed [facility] 00:00:00 [facility] HIB 4 Dose Schedule 2002 Completed [facility] 00:00:00 [facility] Hep B, Adol or Pedi 2002 Completed [facility] Dosage 00:00:00 [facility] DTAP 2002 Completed [facility] [...] Branch DTAP 2002 Completed [facility] 00:00:00 [facility] HIB 4 Dose Schedule 2002 Completed [facility] 00:00:00 [facility] Hep B, Adol or Pedi 2002 Completed [facility] Dosage 00:00:00 [facility] HIB 4 Dose Schedule 2002 Completed [facility] 00:00:00 [facility] DTAP 2002 Completed [facility] 00:00:00 [facility] HIB 4 Dose Schedule 2002 Completed [facility] 00:00:00 [facility] Hep B, Adol or Pedi 2002 Completed [facility] Dosage 00:00:00 [facility] DTAP 2002 Completed [facility] 00:00:00 [facility] Hep B, Adol or Pedi 2002 Completed [facility] Dosage 00:00:00 [facility] HIB 4 Dose Schedule 2002 Completed [facility] 00:00:00 [facility] Hep B, Adol or Pedi 2002 Completed [facility] Dosage 00:00:00 [facility] DTAP 2002 Completed [facility] 00:00:00 [facility] HIB 4 Dose Schedule 2002 Completed [facility] 00:00:00 [facility] Hep B, Adol or Pedi 2002 Completed [facility] Dosage 00:00:00 [facility] DTAP 2002 Completed [facility] 00:00:00 [facility] HIB 4 Dose Schedule 2002 Completed [facility] 00:00:00 [facility] Hep B, Adol or Pedi 2002 Completed [facility] Dosage 00:00:00 [facility] DTAP 2002 Completed [facility] 00:00:00 [facility] HIB 4 Dose Schedule 2002 Completed [facility] 00:00:00 [facility] Hep B, Adol or Pedi 2002 Completed [facility] Dosage 00:00:00 [facility] DTAP 2002 Completed [facility] 00:00:00 [facility] HIB 4 Dose Schedule 2002 Completed [facility] 00:00:00 [facility] DTAP 2002 Completed [facility] 00:00:00 [facility] Hep B, Adol or Pedi 2002 Completed [facility] Dosage 00:00:00 [facility] HIB 4 Dose Schedule 2002 Completed [facility] 00:00:00 [facility] DTAP 2002 Completed [facility] 00:00:00 [facility] HIB 4 Dose Schedule 2002 Completed [facility] 00:00:00 [facility] Hep B, Adol or Pedi 2002 Completed [facility] Dosage 00:00:00 [facility] DTAP 2002 Completed [facility] 00:00:00 [facility] Hep B, Adol or Pedi 2002 Completed [facility] Dosage 00:00:00 [facility] HIB 4 Dose Schedule 2002 Completed [facility] 00:00:00 [facility] Hep B, Adol or Pedi 2002 Completed [facility] Dosage 00:00:00 [facility] DTAP 2002 Completed [facility] 00:00:00 [facility] HIB 4 Dose Schedule 2002 Completed [facility] 00:00:00 [facility] Hep B, Adol or Pedi 2002 Completed [facility] Dosage 00:00:00 [facility] DTAP 2002 Completed [facility] 00:00:00 [facility] HIB 4 Dose Schedule 2002 Completed [facility] 00:00:00 [facility] Hep B, Adol or Pedi 2002 Completed [facility] Dosage 00:00:00 [facility] DTAP 2002 Completed [facility] 00:00:00 [facility] HIB 4 Dose Schedule 2002 [...] 2002 Completed [facility] Dosage 00:00:00 [facility] DTAP 2002 Completed [facility] 00:00:00 [facility] HIB 4 Dose Schedule 2002 Completed [facility] 00:00:00 [facility] Hep B, Adol or Pedi 2002 Completed [facility] Dosage 00:00:00 [facility] DTAP 2002 Completed [facility] 00:00:00 [facility] DTAP 2002 Completed [facility] 00:00:00 [facility] HIB 4 Dose Schedule 2002 Completed [facility] 00:00:00 [facility] Hep B, Adol or Pedi [...] 2002 Completed [facility] Dosage 00:00:00 [facility] DTAP 2002 Completed [facility] 00:00:00 [facility] HIB 4 Dose Schedule 2002 Completed [facility] 00:00:00 [facility] Hep B, Adol or Pedi 2002 Completed [facility] Dosage 00:00:00 [facility] DTAP 2002 Completed [facility] 00:00:00 [facility] HIB 4 Dose Schedule 2002 Completed [facility] 00:00:00 [facility] Hep B, Adol or Pedi 2002 Completed [facility] Dosage 00:00:00 [facility] DTAP 2002 Completed [facility] 00:00:00 [facility] HIB 4 Dose Schedule 2002 Completed [facility] 00:00:00 [facility] Hep B, Adol or Pedi 2002 Completed [facility] Dosage 00:00:00 [facility] DTAP 2002 Completed [facility] 00:00:00 [facility] HIB 4 Dose Schedule 2002 Completed [facility] 00:00:00 [facility] Hep B, Adol or Pedi 2002 Completed [facility] Dosage 00:00:00 [facility] DTAP 2002 Completed [facility] 00:00:00 [facility] HIB 4 Dose Schedule 2002 Completed [facility] 00:00:00 [facility] Hep B, Adol or Pedi 2002 Completed [facility] Dosage 00:00:00 [facility] DTAP 2002 Completed [facility] 00:00:00 [facility] HIB 4 Dose Schedule 2002 Completed [facility] 00:00:00 [facility] Hep B, Adol or Pedi 2002 Completed [facility] Dosage 00:00:00 [facility] DTAP 2002 Completed [facility] 00:00:00 [facility] DTAP 2002 Completed [facility] 00:00:00 [facility] HIB 4 Dose Schedule 2002 Completed [facility] 00:00:00 [facility] Hep B, Adol or Pedi 2002 Completed [facility] Dosage 00:00:00 [facility] HIB 4 Dose Schedule 2002 Completed [facility] 00:00:00 [facility] DTAP 2002 Completed [facility] 00:00:00 [facility] HIB 4 Dose Schedule 2002 Completed [facility] 00:00:00 [facility] Hep B, Adol or Pedi 2002 Completed [facility] Dosage 00:00:00 [facility] DTAP 2002 Completed [facility] 00:00:00 [facility] HIB 4 Dose Schedule 2002 Completed [facility] 00:00:00 [facility] Hep B, Adol or Pedi 2002 Completed [facility] Dosage 00:00:00 [facility] Hep B, Adol or Pedi 2002 Completed [facility] Dosage 00:00:00 [facility] DTAP 2002 Completed [facility] 00:00:00 [facility] HIB 4 Dose Schedule 2002 Completed [facility] 00:00:00 [facility] Hep B, Adol or Pedi 2002 Completed [facility] Dosage 00:00:00 [facility] DTAP 2002 Completed [facility] 00:00:00 [facility] HIB 4 Dose Schedule 2002 Completed [facility] 00:00:00 [facility] Hep B, Adol or Pedi 2002 Completed [facility] Dosage 00:00:00 [facility] DTAP 2002 Completed [facility] 00:00:00 [facility] HIB 4 Dose Schedule 2002 Completed [facility] 00:00:00 [facility] Hep B, Adol or Pedi 2002 Completed [facility] Dosage 00:00:00 [facility] DTAP 2002 Completed [facility] 00:00:00 [facility] HIB 4 Dose Schedule 2002 Completed [facility] 00:00:00 [facility] Hep B, Adol or Pedi 2002 Completed [facility] Dosage 00:00:00 [facility] DTAP 2002 Completed [facility] 00:00:00 [facility] HIB 4 Dose Schedule 2002 Completed [facility] 00:00:00 [facility] Hep B, Adol or Pedi 2002 Completed [facility] Dosage 00:00:00 [facility] DTAP 2002 Completed [facility] [...] Branch DTAP 2002 Completed [facility] 00:00:00 [facility] HIB 4 Dose Schedule 2002 Completed [facility] 00:00:00 [facility] Hep B, Adol or Pedi 2002 Completed [facility] Dosage 00:00:00 [facility] DTAP 2002 Completed [facility] 00:00:00 [facility] HIB 4 Dose Schedule 2002 Completed [facility] 00:00:00 [facility] Hep B, Adol or Pedi 2002 Completed [facility] Dosage 00:00:00 [facility] Hep B, Adol or Pedi 2002 Completed [facility] Dosage 00:00:00 [facility] DTAP 2002 Completed [facility] 00:00:00 [facility] HIB 4 Dose Schedule 2002 Completed [facility] 00:00:00 [facility] Hep B, Adol or Pedi 2002 Completed [facility] Dosage 00:00:00 [facility] DTAP 2002 Completed [facility] 00:00:00 [facility] HIB 4 Dose Schedule 2002 Completed [facility] 00:00:00 [facility] Hep B, Adol or Pedi 2002 Completed [facility] Dosage 00:00:00 [facility] DTAP 2002 Completed [facility] 00:00:00 [facility] HIB 4 Dose Schedule 2002 Completed [facility] 00:00:00 [facility] Hep B, Adol or Pedi 2002 Completed [facility] Dosage 00:00:00 [facility] DTAP 2002 Completed [facility] 00:00:00 [facility] HIB 4 Dose Schedule 2002 Completed [facility] 00:00:00 [facility] Hep B, Adol or Pedi 2002 Completed [facility] Dosage 00:00:00 [facility] DTAP 2002 Completed [facility] 00:00:00 [facility] HIB 4 Dose Schedule 2002 [...] 2002 Completed [facility] Dosage 00:00:00 [facility] DTAP 2002 Completed [facility] 00:00:00 [facility] DTAP 2002 Completed [facility] 00:00:00 [facility] HIB 4 Dose Schedule 2002 Completed [facility] 00:00:00 [facility] Hep B, Adol or Pedi 2002 Completed [facility] Dosage 00:00:00 [facility] HIB 4 Dose Schedule 2002 Completed [facility] 00:00:00 [facility] DTAP 2002 Completed [facility] 00:00:00 [facility] HIB 4 Dose Schedule 2002 Completed [facility] 00:00:00 [facility] Hep B, Adol or Pedi 2002 Completed [facility] Dosage 00:00:00 [facility] Hep B, Adol or Pedi 2002 Completed [facility] Dosage 00:00:00 [facility] DTAP 2002 Completed [facility] 00:00:00 [facility] DTAP 2002 Completed [facility] 00:00:00 [facility] HIB 4 Dose Schedule 2002 Completed [facility] 00:00:00 [facility] Hep B, Adol or Pedi 2002 Completed [facility] Dosage 00:00:00 [facility] HIB 4 Dose Schedule 2002 Completed [facility] 00:00:00 [facility] DTAP 2002 Completed [facility] 00:00:00 [facility] HIB 4 Dose Schedule 2002 Completed [facility] 00:00:00 [facility] Hep B, Adol or Pedi 2002 Completed [facility] Dosage 00:00:00 [facility] DTAP 2002 Completed [facility] 00:00:00 [facility] HIB 4 Dose Schedule 2002 Completed [facility] 00:00:00 [facility] Hep B, Adol or Pedi 2002 Completed [facility] Dosage 00:00:00 [facility] Hep B, Adol or Pedi 2002 Completed [facility] Dosage 00:00:00 [facility] DTAP 2002 Completed [facility] 00:00:00 [facility] HIB 4 Dose Schedule 2002 Completed [facility] 00:00:00 [facility] Hep B, Adol or Pedi 2002 Completed [facility] Dosage 00:00:00 [facility] DTAP 2002 Completed [facility] 00:00:00 [facility] HIB 4 Dose Schedule 2002 Completed [facility] 00:00:00 [facility] Hep B, Adol or Pedi 2002 Completed [facility] Dosage 00:00:00 [facility] DTAP 2002 Completed [facility] 00:00:00 [facility] HIB 4 Dose Schedule 2002 Completed [facility] 00:00:00 [facility] Hep B, Adol or Pedi 2002 Completed [facility] Dosage 00:00:00 [facility] DTAP 2002 Completed [facility] [...] 2002 Completed [facility] Dosage 00:00:00 [facility] DTAP 2002 Completed [facility] 00:00:00 [facility] HIB 4 Dose Schedule 2002 Completed [facility] 00:00:00 [facility] Hep B, Adol or Pedi 2002 Completed [facility] Dosage 00:00:00 [facility] DTAP 2002 Completed [facility] 00:00:00 [facility] HIB 4 Dose Schedule 2002 Completed [facility] 00:00:00 [facility] Hep B, Adol or Pedi 2002 Completed [facility] Dosage 00:00:00 [facility] DTAP 2002 Completed [facility] 00:00:00 [facility] HIB 4 Dose Schedule 2002 Completed [facility] 00:00:00 [facility] Hep B, Adol or Pedi 2002 Completed [facility] Dosage 00:00:00 [facility] DTAP 2002 Completed [facility] 00:00:00 [facility] DTAP 2002 Completed [facility] 00:00:00 [facility] HIB 4 Dose Schedule 2002 Completed [facility] 00:00:00 [facility] Hep B, Adol or Pedi 2002 Completed [facility] Dosage 00:00:00 [facility] DTAP 2002 Completed [facility] 00:00:00 [facility] HIB 4 Dose Schedule 2002 Completed [facility] 00:00:00 [facility] HIB 4 Dose Schedule 2002 Completed [facility] 00:00:00 [facility] Hep B, Adol or Pedi 2002 Completed [facility] Dosage 00:00:00 [facility] DTAP 2002 Completed [facility] 00:00:00 [facility] HIB 4 Dose Schedule 2002 Completed [facility] 00:00:00 [facility] Polio (IPV/OPV) 2002 Completed [facility] 00:00:00 [facility] DTAP 2002 Completed [facility] 00:00:00 [facility] HIB 4 Dose Schedule 2002 Completed [facility] 00:00:00 [facility] Polio (IPV/OPV) 2002 Completed [facility] 00:00:00 [facility] Polio (IPV/OPV) 2002 Completed [facility] 00:00:00 [facility] DTAP 2002 Completed [facility] 00:00:00 [facility] HIB 4 Dose Schedule 2002 Completed [facility] 00:00:00 [facility] Polio (IPV/OPV) 2002 Completed [facility] 00:00:00 [facility] DTAP 2002 Completed [facility] 00:00:00 [facility] HIB 4 Dose Schedule 2002 Completed [facility] 00:00:00 [facility] Polio (IPV/OPV) 2002 Completed [facility] 00:00:00 [facility] DTAP 2002 Completed [facility] 00:00:00 [facility] HIB 4 Dose Schedule 2002 Completed [facility] 00:00:00 [facility] Polio (IPV/OPV) 2002 Completed [facility] 00:00:00 [facility] DTAP 2002 Completed [facility] 00:00:00 [facility] HIB 4 Dose Schedule 2002 Completed [facility] 00:00:00 [facility] Polio (IPV/OPV) 2002 Completed [facility] 00:00:00 [facility] DTAP 2002 Completed [facility] 00:00:00 [facility] HIB 4 Dose Schedule 2002 Completed [facility] 00:00:00 [facility] Polio (IPV/OPV) 2002 Completed [facility] 00:00:00 [facility] DTAP 2002 Completed [facility] 00:00:00 [facility] HIB 4 Dose Schedule 2002 Completed [facility] 00:00:00 [facility] DTAP 2002 Completed [facility] 00:00:00 [facility] Polio (IPV/OPV) 2002 Completed [facility] 00:00:00 [facility] DTAP 2002 Completed [facility] 00:00:00 [facility] HIB 4 Dose Schedule 2002 Completed [facility] 00:00:00 [facility] HIB 4 Dose Schedule 2002 Completed [facility] 00:00:00 [facility] Polio (IPV/OPV) 2002 Completed [facility] 00:00:00 [facility] DTAP 2002 Completed [facility] 00:00:00 [facility] HIB 4 Dose Schedule 2002 Completed [facility] 00:00:00 [facility] Polio (IPV/OPV) 2002 Completed [facility] 00:00:00 [facility] DTAP 2002 Completed [facility] 00:00:00 [facility] HIB 4 Dose Schedule 2002 Completed [facility] 00:00:00 [facility] Polio (IPV/OPV) 2002 Completed [facility] 00:00:00 [facility] DTAP 2002 Completed [facility] 00:00:00 [facility] HIB 4 Dose Schedule 2002 Completed [facility] 00:00:00 [facility] Polio (IPV/OPV) 2002 Completed [facility] 00:00:00 [facility] Polio (IPV/OPV) 2002 Completed [facility] 00:00:00 [facility] DTAP 2002 Completed [facility] 00:00:00 [facility] HIB 4 Dose Schedule 2002 Completed [facility] 00:00:00 [facility] Polio (IPV/OPV) 2002 Completed [facility] 00:00:00 [facility] DTAP 2002 Completed [facility] 00:00:00 [facility] HIB 4 Dose Schedule 2002 Completed [facility] 00:00:00 [facility] Polio (IPV/OPV) 2002 Completed [facility] 00:00:00 [facility] DTAP 2002 Completed [facility] 00:00:00 [facility] HIB 4 Dose Schedule 2002 Completed [facility] 00:00:00 [facility] Polio (IPV/OPV) 2002 Completed [facility] 00:00:00 [facility] DTAP 2002 Completed [facility] 00:00:00 [facility] HIB 4 Dose Schedule 2002 Completed [facility] 00:00:00 [facility] Polio (IPV/OPV) 2002 Completed [facility] 00:00:00 [facility] DTAP 2002 Completed [facility] 00:00:00 [facility] HIB 4 Dose Schedule 2002 Completed [facility] 00:00:00 [facility] Polio (IPV/OPV) 2002 Completed [facility] 00:00:00 [facility] DTAP 2002 Completed [facility] 00:00:00 [facility] HIB 4 Dose Schedule 2002 Completed [facility] 00:00:00 [facility] Polio (IPV/OPV) 2002 Completed [facility] 00:00:00 [facility] DTAP 2002 Completed [facility] 00:00:00 [facility] DTAP 2002 Completed [facility] 00:00:00 [facility] HIB 4 Dose Schedule 2002 Completed [facility] 00:00:00 [facility] Polio (IPV/OPV) 2002 Completed [facility] 00[facility]00:00 [facility] HIB 4 Dose Schedule 2002 Completed [facility] 00:00:00 [facility] DTAP 2002 Completed [facility] 00:00:00 [facility] HIB 4 Dose Schedule 2002 Completed [facility] 00:[facility]:00 [facility] Polio (IPV/OPV) 2002 Completed [facility]00 [facility] DTAP 2002 Completed [facility] 00:00:00 [facility] HIB 4 Dose Schedule 2002 Completed [facility] 00:00:00 [facility] Polio (IPV/OPV) 2002 Completed [facility] 00:00:00 [facility] DTAP 2002 Completed [facility] 00:00:00 [facility] HIB 4 Dose Schedule 2002 Completed [facility] 00:00:00 [facility] Polio (IPV/OPV) 2002 Completed [facility] 00:00:00 [facility] Polio (IPV/OPV) 2002 Completed [facility] 00:00:00 [facility] DTAP 2002 Completed [facility] 00:00:00 [facility] HIB 4 Dose Schedule 2002 Completed [facility] 00:00:00 [facility] Polio (IPV/OPV) 2002 Completed [facility] 00:00:00 [facility] DTAP 2002 Completed [facility] 00:00:00 [facility] HIB 4 Dose Schedule 2002 Completed [facility] 00:00:00 [facility] Polio (IPV/OPV) 2002 Completed [facility] 00:00:00 [facility] DTAP 2002 Completed [facility] 00:00:00 [facility] HIB 4 Dose Schedule 2002 Completed [facility] 00:00:00 [facility] Polio (IPV/OPV) 2002 Completed [facility] 00:00:00 [facility] DTAP 2002 Completed [facility] 00:00:00 [facility] HIB 4 Dose Schedule 2002 Completed [facility] 00:00:00 [facility] Polio (IPV/OPV) 2002 Completed [facility] 00:00:00 [facility] DTAP 2002 Completed [facility] 00:00:00 [facility] HIB 4 Dose Schedule 2002 Completed [facility] 00:00:00 [facility] DTAP 2002 Completed [facility] 00:00:00 [facility] Polio (IPV/OPV) 2002 Completed [facility] 00:00:00 [facility] DTAP 2002 Completed [facility] 00:00:00 [facility] HIB 4 Dose Schedule 2002 Completed [facility] 00:00:00 [facility] HIB 4 Dose Schedule 2002 Completed [facility] 00:00:00 [facility] Polio (IPV/OPV) 2002 Completed [facility] 00:00:00 [facility] DTAP 2002 Completed [facility] 00:00:00 [facility] HIB 4 Dose Schedule 2002 Completed [facility] 00:00:00 [facility] Polio (IPV/OPV) 2002 Completed [facility] 00:00:00 [facility] DTAP 2002 Completed [facility] 00:00:00 [facility] HIB 4 Dose Schedule 2002 Completed [facility] 00:00:00 [facility] Polio (IPV/OPV) 2002 Completed [facility] 00:00:00 [facility] Polio (IPV/OPV) 2002 Completed [facility] 00:00:00 [facility] DTAP 2002 Completed [facility] 00:00:00 [facility] HIB 4 Dose Schedule 2002 Completed [facility] 00:00:00 [facility] Polio (IPV/OPV) 2002 Completed [facility] 00:00:00 [facility] DTAP 2002 Completed [facility] 00:00:00 [facility] HIB 4 Dose Schedule 2002 Completed [facility] 00:00:00 [facility] Polio (IPV/OPV) 2002 Completed [facility] 00:00:00 [facility] DTAP 2002 Completed [facility] 00:00:00 [facility] HIB 4 Dose Schedule 2002 Completed [facility] 00:00:00 [facility] Polio (IPV/OPV) 2002 Completed [facility] 00:00:00 [facility] DTAP 2002 Completed [facility] 00:00:00 [facility] HIB 4 Dose Schedule 2002 Completed [facility] 00:00:00 [facility] Polio (IPV/OPV) 2002 Completed [facility] 00:00:00 [facility] DTAP 2002 Completed [facility] 00:00:00 [facility] HIB 4 Dose Schedule 2002 Completed [facility] 00:00:00 [facility] Polio (IPV/OPV) 2002 Completed [facility] 00:00:00 [facility] DTAP 2002 Completed [facility] 00:00:00 [facility] HIB 4 Dose Schedule 2002 Completed [facility] 00:00:00 [facility] DTAP 2002 Completed [facility] 00:00:00 [facility] Polio (IPV/OPV) 2002 Completed [facility] 00:00:00 [facility] DTAP 2002 Completed [facility] 00:00:00 [facility] HIB 4 Dose Schedule 2002 Completed [facility] 00:00:00 [facility] HIB 4 Dose Schedule 2002 Completed [facility] 00:00:00 [facility] Polio (IPV/OPV) 2002 Completed [facility] 00:00:00 [facility] DTAP 2002 Completed [facility] 00:00:00 [facility] HIB 4 Dose Schedule 2002 Completed [facility] 00:00:00 [facility] Polio (IPV/OPV) 2002 Completed [facility] 00:00:00 [facility] DTAP 2002 Completed [facility] 00:00:00 [facility] HIB 4 Dose Schedule 2002 Completed [facility] 00:00:00 [facility] Polio (IPV/OPV) 2002 Completed [facility] 00:00:00 [facility] DTAP 2002 Completed [facility] 00:00:00 [facility] HIB 4 Dose Schedule 2002 Completed [facility] 00:00:00 [facility] Polio (IPV/OPV) 2002 Completed [facility] 00:00:00 [facility] Polio (IPV/OPV) 2002 Completed [facility] 00:00:00 [facility] DTAP 2002 Completed [facility] 00:00:00 [facility] HIB 4 Dose Schedule 2002 Completed [facility] 00:00:00 [facility] Polio (IPV/OPV) 2002 Completed [facility] 00:00:00 [facility] DTAP 2002 Completed [facility] 00:00:00 [facility] HIB 4 Dose Schedule 2002 Completed [facility] 00:00:00 [facility] Polio (IPV/OPV) 2002 Completed [facility] 00:00:00 [facility] DTAP 2002 Completed [facility] 00:00:00 [facility] DTAP 2002 Completed [facility] 00:00:00 [facility] HIB 4 Dose Schedule 2002 Completed [facility] 00:00:00 [facility] Polio (IPV/OPV) 2002 Completed [facility] 00:00:00 [facility] HIB 4 Dose Schedule 2002 Completed [facility] 00:00:00 [facility] DTAP 2002 Completed [facility] 00:00:00 [facility] HIB 4 Dose Schedule 2002 Completed [facility] 00:00:00 [facility] Polio (IPV/OPV) 2002 Completed [facility] 00:00:00 [facility] DTAP 2002 Completed [facility] 00:00:00 [facility] HIB 4 Dose Schedule 2002 Completed [facility] 00:00:00 [facility] Polio (IPV/OPV) 2002 Completed [facility] 00:00:00 [facility] DTAP 2002 Completed [facility] 00:00:00 [facility] HIB 4 Dose Schedule 2002 Completed [facility] 00:00:00 [facility] Polio (IPV/OPV) 2002 Completed [facility] 00:00:00 [facility] Polio (IPV/OPV) 2002 Completed [facility] 00:00:00 [facility] DTAP 2002 Completed [facility] 00:00:00 [facility] HIB 4 Dose Schedule 2002 Completed [facility] 00:00:00 [facility] Polio (IPV/OPV) 2002 Completed [facility] 00:00:00 [facility] DTAP 2002 Completed [facility] 00:00:00 [facility] HIB 4 Dose Schedule 2002 Completed [facility] 00:00:00 [facility] Polio (IPV/OPV) 2002 Completed [facility] 00:00:00 [facility] DTAP 2002 Completed [facility] 00:00:00 [facility] HIB 4 Dose Schedule 2002 Completed [facility] 00:00:00 [facility] Polio (IPV/OPV) 2002 Completed [facility] 00:00:00 [facility] DTAP 2002 Completed [facility] 00:00:00 [facility] HIB 4 Dose Schedule 2002 Completed [facility] 00:00:00 [facility] DTAP 2002 Completed [facility] 00:00:00 [facility] Polio (IPV/OPV) 2002 Completed [facility] 00:00:00 [facility] DTAP 2002 Completed [facility] 00:00:00 [facility] HIB 4 Dose Schedule 2002 Completed [facility] 00:00:00 [facility] HIB 4 Dose Schedule 2002 Completed [facility] 00:00:00 [facility] Polio (IPV/OPV) 2002 Completed [facility] 00:00:00 [facility] DTAP 2002 Completed [facility] 00:00:00 [facility] HIB 4 Dose Schedule 2002 Completed [facility] 00:00:00 [facility] Polio (IPV/OPV) 2002 Completed [facility] 00:00:00 [facility] DTAP 2002 Completed [facility] 00:00:00 [facility] HIB 4 Dose Schedule 2002 Completed [facility] 00:00:00 [facility] Polio (IPV/OPV) 2002 Completed [facility] 00:00:00 [facility] DTAP 2002 Completed [facility] 00:00:00 [facility] Polio (IPV/OPV) 2002 Completed [facility] 00:00:00 [facility] HIB 4 Dose Schedule 2002 Completed [facility] 00:00:00 [facility] Polio (IPV/OPV) 2002 Completed [facility] 00:00:00 [facility] DTAP 2002 Completed [facility] 00:00:00 [facility] HIB 4 Dose Schedule 2002 Completed [facility] 00:00:00 [facility] Polio (IPV/OPV) 2002 Completed [facility] 00:00:00 [facility] DTAP 2002 Completed [facility] 00:00:00 [facility] HIB 4 Dose Schedule 2002 Completed [facility] 00:00:00 [facility] Polio (IPV/OPV) 2002 Completed [facility] 00[facility]00:00 [facility] DTAP 2002 Completed [facility] 00:00:00 [facility] HIB 4 Dose Schedule 2002 Completed [facility] 00:00:00 [facility] Polio (IPV/OPV) 2002 Completed [facility] 00:00:00 [facility] DTAP 2002 Completed [facility] 00:00:00 [facility] HIB 4 Dose Schedule 2002 Completed [facility] 00:00:00 [facility] Polio (IPV/OPV) 2002 Completed [facility] 00:00:00 [facility] DTAP 2002 Completed [facility] 00:00:00 [facility] DTAP 2002 Completed [facility] 00:00:00 [facility] HIB 4 Dose Schedule 2002 Completed [facility] 00:00:00 [facility] Polio (IPV/OPV) 2002 Completed [facility] 00:00:00 [facility] HIB 4 Dose Schedule 2002 Completed [facility] 00:00:00 [facility] DTAP 2002 Completed [facility] 00:00:00 [facility] HIB 4 Dose Schedule 2002 Completed [facility] 00:00:00 [facility] Polio (IPV/OPV) 2002 Completed [facility] 00:00:00 [facility] DTAP 2002 Completed [facility] 00:00:00 [facility] HIB 4 Dose Schedule 2002 Completed [facility] 00:00:00 [facility] Polio (IPV/OPV) 2002 Completed [facility] 00:00:00 [facility] DTAP 2002 Completed [facility] 00:00:00 [facility] HIB 4 Dose Schedule 2002 Completed [facility] 00:00:00 [facility] Polio (IPV/OPV) 2002 Completed [facility] 00:00:00 [facility] Polio (IPV/OPV) 2002 Completed [facility] 00:00:00 [facility] DTAP 2002 Completed [facility] 00:00:00 [facility] HIB 4 Dose Schedule 2002 Completed [facility] 00:00:00 [facility] Polio (IPV/OPV) 2002 Completed [facility] 00:00:00 [facility] DTAP 2002 Completed [facility] 00:00:00 [facility] HIB 4 Dose Schedule 2002 Completed [facility] 00:00:00 [facility] Polio (IPV/OPV) 2002 Completed [facility] 00:00:00 [facility] DTAP 2002 Completed [facility] 00:00:00 [facility] HIB 4 Dose Schedule 2002 Completed [facility] 00:00:00 [facility] Polio (IPV/OPV) 2002 Completed [facility] 00:00:00 [facility] DTAP 2002 Completed [facility] 00:00:00 [facility] HIB 4 Dose Schedule 2002 Completed [facility] 00:00:00 [facility] Polio (IPV/OPV) 2002 Completed [facility] 00:00:00 [facility] DTAP 2002 Completed [facility] 00:00:00 [facility] DTAP 2002 Completed [facility] 00:00:00 [facility] HIB 4 Dose Schedule 2002 Completed [facility] 00:00:00 [facility] Polio (IPV/OPV) 2002 Completed [facility] 00:00:00 [facility] HIB 4 Dose Schedule 2002 Completed [facility] 00:00:00 [facility] DTAP 2002 Completed [facility] 00:00:00 [facility] HIB 4 Dose Schedule 2002 Completed [facility] 00:00:00 [facility] Polio (IPV/OPV) 2002 Completed [facility] 00:00:00 [facility] DTAP 2002 Completed [facility] 00:00:00 [facility] HIB 4 Dose Schedule 2002 Completed [facility] 00:00:00 [facility] Polio (IPV/OPV) 2002 Completed [facility] 00:00:00 [facility] DTAP 2002 Completed [facility] 00:00:00 [facility] HIB 4 Dose Schedule 2002 Completed [facility] 00:00:00 [facility] Polio (IPV/OPV) 2002 Completed [facility] 00:00:00 [facility] Polio (IPV/OPV) 2002 Completed [facility] 00:00:00 [facility] DTAP 2002 Completed [facility] 00:00:00 [facility] HIB 4 Dose Schedule 2002 Completed [facility] 00:00:00 [facility] Polio (IPV/OPV) 2002 Completed [facility] 00:00:00 [facility] DTAP 2002 Completed [facility] 00:00:00 [facility] HIB 4 Dose Schedule 2002 Completed [facility] 00:00:00 [facility] Polio (IPV/OPV) 2002 Completed [facility] 00:00:00 [facility] DTAP 2002 Completed [facility] 00:00:00 [facility] HIB 4 Dose Schedule 2002 Completed [facility] 00:00:00 [facility] Polio (IPV/OPV) 2002 Completed [facility] 00:00:00 [facility] DTAP 2002 Completed [facility] 00:00:00 [facility] HIB 4 Dose Schedule 2002 Completed [facility] 00:00:00 [facility] Polio (IPV/OPV) 2002 Completed [facility] 00:00:00 [facility] DTAP 2002 Completed [facility] 00:00:00 [facility] HIB 4 Dose Schedule 2002 Completed [facility] 00:00:00 [facility] DTAP 2002 Completed [facility] 00:00:00 [facility] Polio (IPV/OPV) 2002 Completed [facility] 00:00:00 [facility] DTAP 2002 Completed [facility] 00:00:00 [facility] HIB 4 Dose Schedule 2002 Completed [facility] 00:00:00 [facility] Polio (IPV/OPV) 2002 Completed [facility] 00:00:00 [facility] HIB 4 Dose Schedule 2002 Completed [facility] 00:00:00 [facility] DTAP 2002 Completed [facility] 00:00:00 [facility] HIB 4 Dose Schedule 2002 Completed [facility] 00:00:00 [facility] Polio (IPV/OPV) 2002 Completed [facility] 00:00:00 [facility] DTAP 2002 Completed [facility] 00:00:00 [facility] Polio (IPV/OPV) 2002 Completed [facility] 00:00:00 [facility] DTAP 2002 Completed [facility] 00:00:00 [facility] HIB 4 Dose Schedule 2002 Completed [facility] 00:00:00 [facility] Polio (IPV/OPV) 2002 Completed [facility] 00:00:00 [facility] HIB 4 Dose Schedule 2002 Completed [facility] 00:00:00 [facility] DTAP 2002 Completed [facility] 00:00:00 [facility] HIB 4 Dose Schedule 2002 Completed [facility] 00:00:00 [facility] Polio (IPV/OPV) 2002 Completed [facility] 00:00:00 [facility] DTAP 2002 Completed [facility] 00:00:00 [facility] HIB 4 Dose Schedule 2002 Completed [facility] 00:00:00 [facility] Polio (IPV/OPV) 2002 Completed [facility] 00:00:00 [facility] DTAP 2002 Completed [facility] 00:00:00 [facility] HIB 4 Dose Schedule 2002 Completed [facility] 00:00:00 [facility] Polio (IPV/OPV) 2002 Completed [facility] 00:00:00 [facility] Polio (IPV/OPV) 2002 Completed [facility] 00:00:00 [facility] DTAP 2002 Completed [facility] 00:00:00 [facility] HIB 4 Dose Schedule 2002 Completed [facility] 00:00:00 [facility] Polio (IPV/OPV) 2002 Completed [facility] 00:00:00 [facility] DTAP 2002 Completed [facility] 00:00:00 [facility] HIB 4 Dose Schedule 2002 Completed [facility] 00:00:00 [facility] Polio (IPV/OPV) 2002 Completed [facility] 00:00:00 [facility] DTAP 2002 Completed [facility] 00:00:00 [facility] HIB 4 Dose Schedule 2002 Completed [facility] 00:00:00 [facility] Polio (IPV/OPV) 2002 Completed [facility] 00:00:00 [facility] DTAP 2002 Completed [facility] 00:00:00 [facility] HIB 4 Dose Schedule 2002 Completed [facility] 00:00:00 [facility] Polio (IPV/OPV) 2002 Completed [facility] 00:00:00 [facility] DTAP 2002 Completed [facility] 00:00:00 [facility] HIB 4 Dose Schedule 2002 Completed [facility] 00:00:00 [facility] Polio (IPV/OPV) 2002 Completed [facility] 00:00:00 [facility] DTAP 2002 Completed [facility] 00:00:00 [facility] HIB 4 Dose Schedule 2002 Completed [facility] 00:00:00 [facility] Polio (IPV/OPV) 2002 Completed [facility] 00:00:00 [facility] DTAP 2002 Completed [facility] 00:00:00 [facility] HIB 4 Dose Schedule 2002 Completed [facility] 00:00:00 [facility] Polio (IPV/OPV) 2002 Completed [facility] 00:00:00 [facility] DTAP 2002 Completed [facility] 00:00:00 [facility] DTAP 2002 Completed [facility] 00:00:00 [facility] HIB 4 Dose Schedule 2002 Completed [facility] 00:00:00 [facility] Polio (IPV/OPV) 2002 Completed [facility] 00:00:00 [facility] HIB 4 Dose Schedule 2002 Completed [facility] 00:00:00 [facility] DTAP 2002 Completed [facility] 00:00:00 [facility] HIB 4 Dose Schedule 2002 Completed [facility] 00:00:00 [facility] Polio (IPV/OPV) 2002 Completed [facility] 00:00:00 [facility] DTAP 2002 Completed [facility] 00:00:00 [facility] Hep B, Adol or Pedi 2002 Completed [facility] Dosage 00:00:00 [facility] Hep B, Adol or Pedi 2002 Completed [facility] Dosage 00:00:00 [facility] Polio (IPV/OPV) 2002 Completed [facility] 00:00:00 [facility] DTAP 2002 Completed [facility] 00:00:00 [facility] HIB 4 Dose Schedule 2002 Completed [facility] 00:00:00 [facility] Hep B, Adol or Pedi 2002 Completed [facility] Dosage 00:00:00 [facility] Polio (IPV/OPV) 2002 Completed [facility] 00:00:00 [facility] Polio (IPV/OPV) 2002 Completed [facility] 00:00:00 [facility] DTAP 2002 Completed [facility] 00:00:00 [facility] HIB 4 Dose Schedule 2002 Completed [facility] 00:00:00 [facility] Hep B, Adol or Pedi 2002 Completed [facility] Dosage 00:00:00 [facility] Polio (IPV/OPV) 2002 Completed [facility] 00:00:00 [facility] DTAP 2002 Completed [facility] 00:00:00 [facility] HIB 4 Dose Schedule 2002 Completed [facility] 00:00:00 [facility] Hep B, Adol or Pedi 2002 Completed [facility] Dosage 00:00:00 [facility] Polio (IPV/OPV) 2002 Completed [facility] 00:00:00 [facility] DTAP 2002 Completed [facility] 00:00:00 [facility] HIB 4 Dose Schedule 2002 Completed [facility] 00:00:00 [facility] Hep B, Adol or Pedi 2002 Completed [facility] Dosage 00:00:00 [facility] Polio (IPV/OPV) 2002 Completed [facility] 00:00:00 [facility] DTAP 2002 Completed [facility] 00:00:00 [facility] HIB 4 Dose Schedule 2002 Completed [facility] 00:00:00 [facility] Hep B, Adol or Pedi 2002 Completed [facility] Dosage 00:00:00 [facility] Polio (IPV/OPV) 2002 Completed [facility] 00:00:00 [facility] DTAP 2002 Completed [facility] 00:00:00 [facility] HIB 4 Dose Schedule 2002 Completed [facility] 00:00:00 [facility] Hep B, Adol or Pedi 2002 Completed [facility] Dosage 00:00:00 [facility] Polio (IPV/OPV) 2002 Completed [facility] 00:00:00 [facility] DTAP 2002 Completed [facility] 00:00:00 [facility] DTAP 2002 Completed [facility] 00:00:00 [facility] HIB 4 Dose Schedule 2002 Completed [facility] 00:00:00 [facility] Hep B, Adol or Pedi 2002 Completed [facility] Dosage 00:00:00 [facility] Polio (IPV/OPV) 2002 Completed [facility] 00:00:00 [facility] DTAP 2002 Completed [facility] 00:00:00 [facility] HIB 4 Dose Schedule 2002 Completed [facility] 00:00:00 [facility] HIB 4 Dose Schedule 2002 Completed [facility] 00:00:00 [facility] Hep B, Adol or Pedi 2002 Completed [facility] Dosage 00:00:00 [facility] Polio (IPV/OPV) 2002 Completed [facility] 00[facility]00:00 [facility] DTAP 2002 Completed [facility] 00:00:00 [facility] HIB 4 Dose Schedule 2002 Completed [facility] 00:00:00 [facility] Hep B, Adol or Pedi 2002 Completed [facility] Dosage 00:00:00 [facility] Polio (IPV/OPV) 2002 Completed [facility] 00:00:00 [facility] Hep B, Adol or Pedi 2002 Completed [facility] Dosage 00:00:00 [facility] DTAP 2002 Completed [facility] 00:00:00 [facility] HIB 4 Dose Schedule 2002 Completed [facility] 00:00:00 [facility] Hep B, Adol or Pedi 2002 Completed [facility] Dosage 00:00:00 [facility] Polio (IPV/OPV) 2002 Completed [facility] 00:00:00 [facility] Polio (IPV/OPV) 2002 Completed [facility] 00:00:00 [facility] DTAP 2002 Completed [facility] 00:00:00 [facility] HIB 4 Dose Schedule 2002 Completed [facility] 00:00:00 [facility] Hep B, Adol or Pedi 2002 Completed [facility] Dosage 00:00:00 [facility] Polio (IPV/OPV) 2002 Completed [facility] 00:00:00 [facility] DTAP 2002 Completed [facility] 00:00:00 [facility] HIB 4 Dose Schedule 2002 Completed [facility] 00:00:00 [facility] Hep B, Adol or Pedi 2002 Completed [facility] Dosage 00:00:00 [facility] Polio (IPV/OPV) 2002 Completed [facility] 00:00:00 [facility] DTAP 2002 Completed [facility] 00:00:00 [facility] HIB 4 Dose Schedule 2002 Completed [facility] 00:00:00 [facility] Hep B, Adol or Pedi 2002 Completed [facility] Dosage 00:00:00 [facility] Polio (IPV/OPV) 2002 [facility]pleted [facility] DTAP 2002 Completed [facility] 00[facility]00:00 [facility] HIB 4 Dose Schedule 2002 Completed [facility] 00:[facility]00 [facility] Hep B, Adol or Pedi 2002 Completed [facility] Dosage 00:00:00 [facility] Polio (IPV/OPV) 2002 Completed [facility]:00 [facility] DTAP 2002 Completed [facility] 00:00:00 [facility] HIB 4 Dose Schedule 2002 Completed [facility] 00:00:00 [facility] Hep B, Adol or Pedi 2002 Completed [facility] Dosage 00:00:00 [facility] Polio (IPV/OPV) 2002 Completed [facility] 00:00:00 [facility] DTAP 2002 Completed [facility] 00:00:00 [facility] HIB 4 Dose Schedule 2002 Completed [facility] 00:00:00 [facility] Hep B, Adol or Pedi 2002 Completed [facility] Dosage 00:00:00 [facility] Polio (IPV/OPV) 2002 Completed [facility] 00:00:00 [facility] DTAP 2002 Completed [facility] 00:00:00 [facility] HIB 4 Dose Schedule 2002 Completed [facility] 00:00:00 [facility] Hep B, Adol or Pedi 2002 Completed [facility] Dosage 00:00:00 [facility] Polio (IPV/OPV) 2002 Completed [facility] 00:00:00 [facility] DTAP 2002 Completed [facility] 00:00:00 [facility] DTAP 2002 Completed [facility] 00:00:00 [facility] HIB 4 Dose Schedule 2002 Completed [facility] 00:00:00 [facility] Hep B, Adol or Pedi 2002 Completed [facility] Dosage 00:00:00 [facility] Polio (IPV/OPV) 2002 Completed [facility] 00[facility]00:00 [facility] HIB 4 Dose Schedule 2002 Completed [facility] 00:00:00 [facility] DTAP 2002 Completed [facility] 00:00:00 [facility] HIB 4 Dose Schedule 2002 Completed [facility] 00:00:00 [facility] Hep B, Adol or Pedi 2002 Completed [facility] Dosage 00:00:00 [facility] Polio (IPV/OPV) 2002 Completed [facility] 00:00:00 [facility] DTAP 2002 Completed [facility] 00:00:00 [facility] HIB 4 Dose Schedule 2002 Completed [facility] 00:00:00 [facility] Hep B, Adol or Pedi 2002 Completed [facility] Dosage 00:00:00 [facility] Polio (IPV/OPV) 2002 Completed [facility] 00:00:00 [facility] Hep B, Adol or Pedi 2002 Completed [facility] Dosage 00:00:00 [facility] DTAP 2002 Completed [facility] 00:00:00 [facility] HIB 4 Dose Schedule 2002 Completed [facility] 00:00:00 [facility] Hep B, Adol or Pedi 2002 Completed [facility] Dosage 00:00:00 [facility] Polio (IPV/OPV) 2002 Completed [facility] 00:00:00 [facility] Polio (IPV/OPV) 2002 Completed [facility] 00:00:00 [facility] DTAP 2002 Completed [facility] 00:00:00 [facility] HIB 4 Dose Schedule 2002 Completed [facility] 00:00:00 [facility] Hep B, Adol or Pedi 2002 Completed [facility] Dosage 00:00:00 [facility] Polio (IPV/OPV) 2002 Completed [facility] 00:00:00 [facility] DTAP 2002 Completed [facility] 00:00:00 [facility] HIB 4 Dose Schedule 2002 Completed [facility] 00:00:00 [facility] Hep B, Adol or Pedi 2002 Completed [facility] Dosage 00:00:00 [facility] Polio (IPV/OPV) 2002 Completed [facility] 00:00:00 [facility] DTAP 2002 Completed [facility] 00:00:00 [facility] HIB 4 Dose Schedule 2002 Completed [facility] 00:00:00 [facility] Hep B, Adol or Pedi 2002 Completed [facility] Dosage 00:00:00 [facility] Polio (IPV/OPV) 2002 Completed [facility] 00:00:00 [facility] DTAP 2002 Completed [facility] 00[facility]00:00 [facility] HIB 4 Dose Schedule 2002 Completed [facility] 00:00:00 [facility] Hep B, Adol or Pedi 2002 Completed [facility] Dosage 00:00:00 [facility] Polio (IPV/OPV) 2002 Completed [facility] 00:00:00 [facility] DTAP 2002 Completed [facility] 00:00:00 [facility] HIB 4 Dose Schedule 2002 Completed [facility] 00:00:00 [facility] DTAP 2002 Completed [facility] 00:00:00 [facility] Hep B, Adol or Pedi 2002 Completed [facility] Dosage 00:00:00 [facility] Polio (IPV/OPV) 2002 Completed [facility] 00:00:00 [facility] HIB 4 Dose Schedule 2002 Completed [facility] 00:00:00 [facility] DTAP 2002 Completed [facility] 00:00:00 [facility] HIB 4 Dose Schedule 2002 Completed [facility] 00:00:00 [facility] Hep B, Adol or Pedi 2002 Completed [facility] Dosage 00:00:00 [facility] Polio (IPV/OPV) 2002 Completed [facility] 00[facility]00:00 [facility] DTAP 2002 Completed [facility] 00:00:00 [facility] HIB 4 Dose Schedule 2002 Completed [facility] 00:00:00 [facility] Hep B, Adol or Pedi 2002 Completed [facility] Dosage 00:00:00 [facility] Polio (IPV/OPV) 2002 Completed [facility] 00:00:00 [facility] Hep B, Adol or Pedi 2002 Completed [facility] Dosage 00:00:00 [facility] DTAP 2002 Completed [facility] 00:00:00 [facility] HIB 4 Dose Schedule 2002 Completed [facility] 00:00:00 [facility] Hep B, Adol or Pedi 2002 Completed [facility] Dosage 00:00:00 [facility] Polio (IPV/OPV) 2002 Completed [facility] 00:00:00 [facility] Polio (IPV/OPV) 2002 Completed [facility] 00:00:00 [facility] DTAP 2002 Completed [facility] 00:00:00 [facility] HIB 4 Dose Schedule 2002 Completed [facility] 00:00:00 [facility] Hep B, Adol or Pedi 2002 Completed [facility] Dosage 00:00:00 [facility] Polio (IPV/OPV) 2002 Completed [facility] 00:00:00 [facility] DTAP 2002 Completed [facility] 00:00:00 [facility] HIB 4 Dose Schedule 2002 Completed [facility] 00:00:00 [facility] Hep B, Adol or Pedi 2002 Completed [facility] Dosage 00:00:00 [facility] Polio (IPV/OPV) 2002 Completed [facility] 00:00:00 [facility] DTAP 2002 Completed [facility] 00:00:00 [facility] HIB 4 Dose Schedule 2002 Completed [facility] 00:00:00 [facility] Hep B, Adol or Pedi 2002 Completed [facility] Dosage 00:00:00 [facility] Polio (IPV/OPV) 2002 Completed [facility] 00[facility]00:00 [facility] DTAP 2002 Completed [facility] 00:00:00 [facility] HIB 4 Dose Schedule 2002 Completed [facility] 00:00:00 [facility] Hep B, Adol or Pedi 2002 Completed [facility] Dosage 00:00:00 [facility] Polio (IPV/OPV) 2002 Completed [facility] 00:00:00 [facility] DTAP 2002 Completed [facility] 00:00:00 [facility] HIB 4 Dose Schedule 2002 Completed [facility] 00:00:00 [facility] Hep B, Adol or Pedi 2002 Completed [facility] Dosage 00:00:00 [facility] Polio (IPV/OPV) 2002 Completed [facility] 00:00:00 [facility] DTAP 2002 Completed [facility] 00:00:00 [facility] DTAP 2002 Completed [facility] 00:00:00 [facility] HIB 4 Dose Schedule 2002 Completed [facility] 00:00:00 [facility] Hep B, Adol or Pedi 2002 Completed [facility] Dosage 00:00:00 [facility] Polio (IPV/OPV) 2002 Completed [facility] 00:00:00 [facility] DTAP 2002 Completed [facility] 00:00:00 [facility] HIB 4 Dose Schedule 2002 Completed [facility] 00:00:00 [facility] HIB 4 Dose Schedule 2002 Completed [facility] 00:00:00 [facility] Hep B, Adol or Pedi 2002 Completed [facility] Dosage 00:00:00 [facility] Polio (IPV/OPV) 2002 Completed [facility] 00:00:00 [facility] DTAP 2002 Completed [facility] 00:00:00 [facility] HIB 4 Dose Schedule 2002 Completed [facility] 00:00:00 [facility] Hep B, Adol or Pedi 2002 Completed [facility] Dosage 00:00:00 [facility] Polio (IPV/OPV) 2002 Completed [facility] 00:00:00 [facility] Hep B, Adol or Pedi 2002 Completed [facility] Dosage 00:00:00 [facility] DTAP 2002 Completed [facility] 00:00:00 [facility] HIB 4 Dose Schedule 2002 Completed [facility] 00:00:00 [facility] Hep B, Adol or Pedi 2002 Completed [facility] Dosage 00:00:00 [facility] Polio (IPV/OPV) 2002 Completed [facility] 00:00:00 [facility] Polio (IPV/OPV) 2002 Completed [facility] 00:00:00 [facility] DTAP 2002 Completed [facility] 00:00:00 [facility] HIB 4 Dose Schedule 2002 Completed [facility] 00:00:00 [facility] Hep B, Adol or Pedi 2002 Completed [facility] Dosage 00:00:00 [facility] Polio (IPV/OPV) 2002 Completed [facility] 00:00:00 [facility] DTAP 2002 Completed [facility] 00:00:00 [facility] HIB 4 Dose Schedule 2002 Completed [facility] 00:00:00 [facility] Hep B, Adol or Pedi 2002 Completed [facility] Dosage 00:00:00 [facility] Polio (IPV/OPV) 2002 Completed [facility] 00:00:00 [facility] DTAP 2002 Completed [facility] 00:00:00 [facility] HIB 4 Dose Schedule 2002 Completed [facility] 00:00:00 [facility] Hep B, Adol or Pedi 2002 Completed [facility] Dosage 00:00:00 [facility] Polio (IPV/OPV) 2002 Completed [facility] 00:00:00 [facility] DTAP 2002 Completed [facility] 00:00:00 [facility] DTAP 2002 Completed [facility] 00:00:00 [facility] HIB 4 Dose Schedule 2002 Completed [facility] 00:00:00 [facility] Hep B, Adol or Pedi 2002 Completed [facility] Dosage 00:00:00 [facility] Polio (IPV/OPV) 2002 Completed [facility] 00:00:00 [facility] HIB 4 Dose Schedule 2002 Completed [facility] 00:00:00 [facility] DTAP 2002 Completed [facility] 00:00:00 [facility] HIB 4 Dose Schedule 2002 Completed [facility] 00:00:00 [facility] Hep B, Adol or Pedi 2002 Completed [facility] Dosage 00:00:00 [facility] Polio (IPV/OPV) 2002 Completed [facility] 00:00:00 [facility] Hep B, Adol or Pedi 2002 Completed [facility] Dosage 00:00:00 [facility] DTAP 2002 Completed [facility] 00:00:00 [facility] HIB 4 Dose Schedule 2002 Completed [facility] 00:00:00 [facility] Hep B, Adol or Pedi 2002 Completed [facility] Dosage 00:00:00 [facility] Polio (IPV/OPV) 2002 Completed [facility] 00:00:00 [facility] Polio (IPV/OPV) 2002 Completed [facility] 00:00:00 [facility] DTAP 2002 Completed [facility] 00:00:00 [facility] HIB 4 Dose Schedule 2002 Completed [facility] 00:00:00 [facility] Hep B, Adol or Pedi 2002 Completed [facility] Dosage 00:00:00 [facility] Polio (IPV/OPV) 2002 Completed [facility] 00:00:00 [facility] DTAP 2002 Completed [facility] 00:00:00 [facility] HIB 4 Dose Schedule 2002 Completed [facility] 00:00:00 [facility] Hep B, Adol or Pedi 2002 Completed [facility] Dosage 00:00:00 [facility] Polio (IPV/OPV) 2002 Completed [facility] 00:00:00 [facility] DTAP 2002 Completed [facility] 00:00:00 [facility] HIB 4 Dose Schedule 2002 Completed [facility] 00:00:00 [facility] Hep B, Adol or Pedi 2002 Completed [facility] Dosage 00:00:00 [facility] Polio (IPV/OPV) 2002 Completed [facility] 00:00:00 [facility] DTAP 2002 Completed [facility] 00:00:00 [facility] HIB 4 Dose Schedule 2002 Completed [facility] 00:00:00 [facility] Hep B, Adol or Pedi 2002 Completed [facility] Dosage 00:00:00 [facility] Polio (IPV/OPV) 2002 Completed [facility] 00:00:00 [facility] DTAP 2002 Completed [facility] 00:00:00 [facility] DTAP 2002 Completed [facility] 00:00:00 [facility] HIB 4 Dose Schedule 2002 Completed [facility] 00:00:00 [facility] Hep B, Adol or Pedi 2002 Completed [facility] Dosage 00:00:00 [facility] Polio (IPV/OPV) 2002 Completed [facility] 00:00:00 [facility] HIB 4 Dose Schedule 2002 Completed [facility] 00:00:00 [facility] DTAP 2002 Completed [facility] 00:00:00 [facility] HIB 4 Dose Schedule 2002 Completed [facility] 00:00:00 [facility] Hep B, Adol or Pedi 2002 Completed [facility] Dosage 00:00:00 [facility] Polio (IPV/OPV) 2002 Completed [facility] 00:00:00 [facility] DTAP 2002 Completed [facility] 00:00:00 [facility] HIB 4 Dose Schedule 2002 Completed [facility] 00:00:00 [facility] Hep B, Adol or Pedi 2002 Completed [facility] Dosage 00:00:00 [facility] Polio (IPV/OPV) 2002 Completed [facility] 00:00:00 [facility] Hep B, Adol or Pedi 2002 Completed [facility] Dosage 00:00:00 [facility] DTAP 2002 Completed [facility] 00:00:00 [facility] HIB 4 Dose Schedule 2002 Completed [facility] 00:00:00 [facility] Hep B, Adol or Pedi 2002 Completed [facility] Dosage 00:00:00 [facility] Polio (IPV/OPV) 2002 Completed [facility] 00:00:00 [facility] Polio (IPV/OPV) 2002 Completed [facility] 00:00:00 [facility] DTAP 2002 Completed [facility] 00:00:00 [facility] HIB 4 Dose Schedule 2002 Completed [facility] 00:00:00 [facility] Hep B, Adol or Pedi 2002 Completed [facility] Dosage 00:00:00 [facility] Polio (IPV/OPV) 2002 Completed [facility] 00:00:00 [facility] DTAP 2002 Completed [facility] 00:00:00 [facility] HIB 4 Dose Schedule 2002 Completed [facility] 00:00:00 [facility] Hep B, Adol or Pedi 2002 Completed [facility] Dosage 00:00:00 [facility] Polio (IPV/OPV) 2002 Completed [facility] 00:00:00 [facility] DTAP 2002 Completed [facility] 00:00:00 [facility] HIB 4 Dose Schedule 2002 Completed [facility] 00:00:00 [facility] Hep B, Adol or Pedi 2002 Completed [facility] Dosage 00:00:00 [facility] Polio (IPV/OPV) 2002 Completed [facility] 00:00:00 [facility] DTAP 2002 Completed [facility] 00:00:00 [facility] HIB 4 Dose Schedule 2002 Completed [facility] 00:00:00 [facility] Hep B, Adol or Pedi 2002 Completed [facility] Dosage 00:00:00 [facility] Polio (IPV/OPV) 2002 Completed [facility] 00:00:00 [facility] DTAP 2002 Completed [facility] 00:00:00 [facility] HIB 4 Dose Schedule 2002 Completed [facility] 00:00:00 [facility] Hep B, Adol or Pedi 2002 Completed [facility] Dosage 00:00:00 [facility] Polio (IPV/OPV) 2002 Completed [facility] 00:00:00 [facility] DTAP 2002 Completed [facility] 00:00:00 [facility] DTAP 2002 Completed [facility] 00:00:00 [facility] HIB 4 Dose Schedule 2002 Completed [facility] 00:00:00 [facility] Hep B, Adol or Pedi 2002 Completed [facility] Dosage 00:00:00 [facility] Polio (IPV/OPV) 2002 Completed [facility] 00:00:00 [facility] HIB 4 Dose Schedule 2002 Completed [facility] 00:00:00 [facility] DTAP 2002 Completed [facility] 00:00:00 [facility] HIB 4 Dose Schedule 2002 Completed [facility] 00:00:00 [facility] Hep B, Adol or Pedi 2002 Completed [facility] Dosage 00:00:00 [facility] Polio (IPV/OPV) 2002 Completed [facility] 00:00:00 [facility] DTAP 2002 Completed [facility] 00:00:00 [facility] Hep B, Adol or Pedi 2002 Completed [facility] Dosage 00:00:00 [facility] HIB 4 Dose Schedule 2002 Completed [facility] 00:00:00 [facility] Hep B, Adol or Pedi 2002 Completed [facility] Dosage 00:00:00 [facility] Polio (IPV/OPV) 2002 Completed [facility] 00:00:00 [facility] Polio (IPV/OPV) 2002 Completed [facility] 00:00:00 [facility] DTAP 2002 Completed [facility] 00:00:00 [facility] HIB 4 Dose Schedule 2002 Completed [facility] 00:00:00 [facility] Hep B, Adol or Pedi 2002 Completed [facility] Dosage 00:00:00 [facility] Polio (IPV/OPV) 2002 Completed [facility] 00:00:00 [facility] DTAP 2002 Completed [facility] 00:00:00 [facility] HIB 4 Dose Schedule 2002 Completed [facility] 00:00:00 [facility] Hep B, Adol or Pedi 2002 Completed [facility] Dosage 00:00:00 [facility] Polio (IPV/OPV) 2002 Completed [facility] 00:00:00 [facility] DTAP 2002 Completed [facility] 00:00:00 [facility] HIB 4 Dose Schedule 2002 Completed [facility] 00:00:00 [facility] Hep B, Adol or Pedi 2002 Completed [facility] Dosage 00:00:00 [facility] Polio (IPV/OPV) 2002 Completed [facility] 00:00:00 [facility] DTAP 2002 Completed [facility] 00:00:00 [facility] HIB 4 Dose Schedule 2002 Completed [facility] 00:00:00 [facility] Hep B, Adol or Pedi 2002 Completed [facility] Dosage 00:00:00 [facility] Polio (IPV/OPV) 2002 Completed [facility] 00:00:00 [facility] DTAP 2002 Completed [facility] 00:00:00 [facility] HIB 4 Dose Schedule 2002 Completed [facility] 00:00:00 [facility] Hep B, Adol or Pedi 2002 Completed [facility] Dosage 00:00:00 [facility] Polio (IPV/OPV) 2002 Completed [facility] 00:00:00 [facility] DTAP 2002 Completed [facility] 00:00:00 [facility] DTAP 2002 Completed [facility] 00:00:00 [facility] HIB 4 Dose Schedule 2002 Completed [facility] 00:00:00 [facility] Hep B, Adol or Pedi 2002 Completed [facility] Dosage 00:00:00 [facility] Polio (IPV/OPV) 2002 Completed [facility] 00:00:00 [facility] HIB 4 Dose Schedule 2002 Completed [facility] 00:00:00 [facility] DTAP 2002 Completed [facility] 00:00:00 [facility] HIB 4 Dose Schedule 2002 Completed [facility] 00:00:00 [facility] Hep B, Adol or Pedi 2002 Completed [facility] Dosage 00:00:00 [facility] Polio (IPV/OPV) 2002 Completed [facility] 00:00:00 [facility] DTAP 2002 Completed [facility] 00:00:00 [facility] HIB 4 Dose Schedule 2002 Completed [facility] 00:00:00 [facility] Hep B, Adol or Pedi 2002 Completed [facility] Dosage 00:00:00 [facility] Hep B, Adol or Pedi 2002 Completed [facility] Dosage 00:00:00 [facility] Polio (IPV/OPV) 2002 Completed [facility] 00:00:00 [facility] DTAP 2002 Completed [facility] 00:00:00 [facility] Polio (IPV/OPV) 2002 Completed [facility] 00:00:00 [facility] HIB 4 Dose Schedule 2002 Completed [facility] 00:00:00 [facility] Hep B, Adol or Pedi 2002 Completed [facility] Dosage 00:00:00 [facility] Polio (IPV/OPV) 2002 Completed [facility] 00:00:00 [facility] DTAP 2002 Completed [facility] 00:00:00 [facility] HIB 4 Dose Schedule 2002 Completed [facility] 00:00:00 [facility] Hep B, Adol or Pedi 2002 Completed [facility] Dosage 00:00:00 [facility] Polio (IPV/OPV) 2002 Completed [facility] 00:00:00 [facility] DTAP 2002 Completed [facility] 00:00:00 [facility] HIB 4 Dose Schedule 2002 Completed [facility] 00:00:00 [facility] Hep B, Adol or Pedi 2002 Completed [facility] Dosage 00:00:00 [facility] Polio (IPV/OPV) 2002 Completed [facility] 00:00:00 [facility] DTAP 2002 Completed [facility] 00:00:00 [facility] HIB 4 Dose Schedule 2002 Completed [facility] 00:00:00 [facility] Hep B, Adol or Pedi 2002 Completed [facility] Dosage 00:00:00 [facility] Polio (IPV/OPV) 2002 Completed [facility] 00:00:00 [facility] DTAP 2002 Completed [facility] 00:00:00 [facility] HIB 4 Dose Schedule 2002 Completed [facility] 00:00:00 [facility] Hep B, Adol or Pedi 2002 Completed [facility] Dosage 00:00:00 [facility] Polio (IPV/OPV) 2002 Completed [facility] 00:00:00 [facility] DTAP 2002 Completed [facility] 00:00:00 [facility] HIB 4 Dose Schedule 2002 Completed [facility] 00:00:00 [facility] DTAP 2002 Completed [facility] 00:00:00 [facility] Hep B, Adol or Pedi 2002 Completed [facility] Dosage 00:00:00 [facility] Polio (IPV/OPV) 2002 Completed [facility]:00 [facility] [facility] DTAP 2002 Completed [facility] 00:00:00 [facility] HIB 4 Dose Schedule 2002 Completed [facility] 00:00:00 [facility] HIB 4 Dose Schedule 2002 Completed [facility] 00:00:00 [facility] Hep B, Adol or Pedi 2002 Completed [facility] Dosage 00:00:00 [facility] Polio (IPV/OPV) 2002 Completed [facility] 00:00:00 [facility] DTAP 2002 Completed [facility] 00:00:00 [facility] DTAP 2002 Completed [facility] 00:00:00 [facility] HIB 4 Dose Schedule 2002 Completed [facility] 00:00:00 [facility] Hep B, Adol or Pedi 2002 Completed [facility] Dosage 00:00:00 [facility] Polio (IPV/OPV) 2002 Completed [facility] 00:00:00 [facility] Hep B, Adol or Pedi 2002 Completed [facility] Dosage 00:00:00 [facility] Polio (IPV/OPV) 2002 Completed [facility] 00:00:00 [facility] DTAP 2002 Completed [facility] 00:00:00 [facility] HIB 4 Dose Schedule 2002 Completed [facility] 00:00:00 [facility] Hep B, Adol or Pedi 2002 Completed [facility] Dosage 00:00:00 [facility] HIB 4 Dose Schedule 2002 Completed [facility] 00:00:00 [facility] Polio (IPV/OPV) 2002 Completed [facility] 00:00:00 [facility] DTAP 2002 Completed [facility] 00:00:00 [facility] HIB 4 Dose Schedule 2002 Completed [facility] 00:00:00 [facility] Hep B, Adol or Pedi 2002 Completed [facility] Dosage 00:00:00 [facility] Polio (IPV/OPV) 2002 Completed [facility] 00:00:00 [facility] DTAP 2002 Completed [facility] 00:00:00 [facility] Hep B, Adol or Pedi 2002 Completed [facility] Dosage 00:00:00 [facility] HIB 4 Dose Schedule 2002 Completed [facility] 00:00:00 [facility] Hep B, Adol or Pedi 2002 Completed [facility] Dosage 00:00:00 [facility] Polio (IPV/OPV) 2002 Completed [facility] 00:00:00 [facility] DTAP 2002 Completed [facility] 00:00:00 [facility] HIB 4 Dose Schedule 2002 Completed [facility] 00:00:00 [facility] Polio (IPV/OPV) 2002 Completed [facility] 00:00:00 [facility] Hep B, Adol or Pedi 2002 Completed [facility] Dosage 00:00:00 [facility] Polio (IPV/OPV) 2002 Completed [facility] 00:00:00 [facility] DTAP 2002 Completed [facility] 00:00:00 [facility] HIB 4 Dose Schedule 2002 Completed [facility] 00:00:00 [facility] Hep B, Adol or Pedi 2002 Completed [facility] Dosage 00:00:00 [facility] Polio (IPV/OPV) 2002 Completed [facility] 00:00:00 [facility] DTAP 2002 Completed [facility] 00:00:00 [facility] HIB 4 Dose Schedule 2002 Completed [facility] 00:00:00 [facility] Hep B, Adol or Pedi 2002 Completed [facility] Dosage 00:00:00 [facility] Polio (IPV/OPV) 2002 Completed [facility] 00:00:00 [facility] DTAP 2002 Completed [facility] 00:00:00 [facility] HIB 4 Dose Schedule 2002 Completed [facility] 00:00:00 [facility] Hep B, Adol or Pedi 2002 Completed [facility] of Dosage 00:00:00 [facility] Polio (IPV/OPV) 2002 Completed [facility] 00:00:00 [facility] DTAP 2002 Completed [facility] 00:00:00 [facility] HIB 4 Dose Schedule 2002 Completed [facility] 00:00:00 [facility] Hep B, Adol or Pedi 2002 Completed [facility] Dosage 00:00:00 [facility] Polio (IPV/OPV) 2002 Completed [facility] 00:00:00 [facility] DTAP 2002 Completed [facility] 00:00:00 [facility] HIB 4 Dose Schedule 2002 Completed [facility] 00:00:00 [facility] Hep B, Adol or Pedi 2002 Completed [facility] Dosage 00:00:00 [facility] Polio (IPV/OPV) 2002 Completed [facility] 00:00:00 [facility] DTAP 2002 Completed [facility] 00:00:00 [facility] HIB 4 Dose Schedule 2002 Completed [facility] 00:00:00 [facility] Hep B, Adol or Pedi 2002 Completed [facility] of Dosage 00:00:00 [facility] Polio (IPV/OPV) 2002 Completed [facility] 00:00:00 [facility] DTAP 2002 Completed [facility] 00:00:00 [facility] HIB 4 Dose Schedule 2002 Completed [facility] 00:00:00 [facility] Hep B, Adol or Pedi 2002 Completed [facility] of Dosage 00:00:00 [facility] Polio (IPV/OPV) 2002 Completed [facility] 00:00:00 [facility] DTAP 2002 Completed [facility] 00:00:00 [facility] DTAP 2002 Completed [facility] 00:00:00 [facility] HIB 4 Dose Schedule 2002 Completed [facility] 00:00:00 [facility] Hep B, Adol or Pedi 2002 Completed [facility] Dosage 00:00:00 [facility] Polio (IPV/OPV) 2002 Completed [facility] 00:00:00 [facility] HIB 4 Dose Schedule 2002 Completed [facility] 00:00:00 [facility] DTAP 2002 Completed [facility] 00:00:00 [facility] HIB 4 Dose Schedule 2002 Completed [facility] 00:00:00 [facility] Hep B, Adol or Pedi 2002 Completed [facility] Dosage 00:00:00 [facility] Polio (IPV/OPV) 2002 Completed [facility] 00:00:00 [facility] DTAP 2002 Completed [facility] 00:00:00 [facility] HIB 4 Dose Schedule 2002 Completed [facility] 00:00:00 [facility] Hep B, Adol or Pedi 2002 Completed [facility] of Dosage 00:00:00 [facility] Hep B, Adol or Pedi 2002 Completed [facility] of Dosage 00:00:00 [facility] Hep B, Adol or Pedi 2002 Completed [facility] Dosage 00:00:00 [facility] Hep B, Adol or Pedi 2002 Completed [facility] Dosage 00:00:00 [facility] Hep B, Adol or Pedi 2002 Completed [facility] of Dosage 00:00:00 [facility] Hep B, Adol or Pedi 2002 Completed [facility] Dosage 00:00:00 [facility] Hep B, Adol or Pedi 2002 Completed [facility] Dosage 00:00:00 [facility] Hep B, Adol or Pedi [...] 2002 Completed [facility] Dosage 00:00:00 [facility] Hep B, Adol or Pedi 2002 Completed [facility] Dosage 00:00:00 [facility] Hep B, Adol or Pedi 2002 Completed [facility] of Dosage 00:00:00 [facility] Hep B, Adol or Pedi 2002 Completed [facility] of Dosage 00:00:00 [facility] Hep B, Adol or Pedi 2002 Completed [facility] Dosage 00:00:00 [facility] Vital Signs Vital Name Observation Time Observation Value Comments Source Systolic blood 2022-11-13 14:04:00 134 mm[Hg] [facility] of pressure [facility] Diastolic blood 2022-11-13 14:04:00 76 mm[Hg] [facility] of pressure [facility] Heart rate 2022-11-13 14:04:00 76 /min [facility] Body temperature 2022-11-13 14:04:00 37.22 Cara [facility] Body height 2022-11-13 14:04:00 160 cm [facility] Body weight 2022-11-13 14:04:00 82.283 kg [facility] BMI 2022-11-13 14:04:00 32.13 kg/m2 [facility] Systolic blood 2022-10-28 14:04:00 123 mm[Hg] [facility] pressure [facility] Diastolic blood 2022-10-28 14:04:00 83 mm[Hg] [facility] pressure [facility] Heart rate 2022-10-28 14:04:00 68 /min [facility] Body temperature 2022-10-28 14:04:00 36.94 Cara [facility] Respiratory rate 2022-10-28 14:04:00 18 /min [facility] Body height 2022-10-28 14:04:00 160 cm [facility] Body weight 2022-10-28 14:04:00 82.101 kg [facility] BMI 2022-10-28 14:04:00 32.06 kg/m2 [facility] Systolic blood 2022-08-11 16:19:00 110 mm[Hg] [facility] pressure [facility] Diastolic blood 2022-08-11 16:19:00 77 mm[Hg] [facility] pressure [facility] Heart rate 2022-08-11 16:19:00 89 /min [facility] Body temperature 2022-08-11 16:19:00 37.33 Cara [facility] Respiratory rate 2022-08-11 16:19:00 20 /min [facility] Body height 2022-08-11 16:19:00 160 cm [facility] Body weight 2022-08-11 16:19:00 78.075 kg [facility] BMI 2022-08-11 16:19:00 30.49 kg/m2 [facility] Oxygen saturation in 2022-08-11 16:19:00 98 /min [facility] Systolic blood 2022-05-27 20:21:00 121 mm[Hg] [facility]iver [facility] pressure [facility] Diastolic blood 2022-05-27 20:21:00 69 mm[Hg] [facility] pressure [facility] Heart rate 2022-05-27 20:21:00 72 /min [facility] Body temperature 2022-05-27 20:21:00 37.11 Cara [facility] Respiratory rate 2022-05-27 20:21:00 17 /min [facility] Body height 2022-05-27 20:21:00 157.5 cm [facility] Body weight 2022-05-27 20:21:00 84.55 kg [facility] BMI 2022-05-27 20:21:00 34.09 kg/m2 [facility] Systolic blood 2022-02-05 19:09:00 137 mm[Hg] [facility] pressure [facility] Diastolic blood 2022-02-05 19:09:00 79 mm[Hg] [facility] pressure [facility] Heart rate 2022-02-05 19:09:00 94 /min [facility] Body temperature 2022-02-05 19:09:00 37.06 Cara [facility] Respiratory rate 2022-02-05 19:09:00 18 /min [facility] Body height 2022-02-05 19:09:00 157.5 cm [facility] Body weight 2022-02-05 19:09:00 84.732 kg [facility] BMI 2022-02-05 19:09:00 34.17 kg/m2 [facility] Systolic blood 2022-01-31 15:02:00 122 mm[Hg] [facility] pressure [facility] Diastolic blood 2022-01-31 15:02:00 77 mm[Hg] [facility] pressure [facility] Heart rate 2022-01-31 15:02:00 67 /min [facility] Body temperature 2022-01-31 15:02:00 37.11 Cara [facility] Body height 2022-01-31 15:02:00 157.5 cm [facility] Body weight 2022-01-31 15:02:00 82.555 kg [facility] BMI 2022-01-31 15:02:00 33.29 kg/m2 [facility] Systolic blood 2022-01-02 14:12:00 109 mm[Hg] [facility] pressure [facility] Diastolic blood 2022-01-02 14:12:00 67 mm[Hg] [facility] pressure [facility] Heart rate 2022-01-02 14:12:00 58 /min [facility] Body temperature 2022-01-02 14:12:00 37.06 Cara [facility] Respiratory rate 2022-01-02 14:12:00 18 /min [facility] Body height 2022-01-02 14:12:00 157.5 cm [facility] Body weight 2022-01-02 14:12:00 80.74 kg [facility] BMI 2022-01-02 14:12:00 32.56 kg/m2 [facility] Systolic blood 2021-01-06 02:00:00 149 mm[Hg] Univer [facility]ity of pressure [facility] Diastolic blood 2021-01-06 02:00:00 97 mm[Hg] [facility] of pressure [facility] Heart rate 2021-01-06 02:00:00 101 /min [facility] Respiratory rate 2021-01-06 02:00:00 17 /min [facility] Oxygen saturation in 2021-01-06 02:00:00 100 /min [facility] Body temperature 2021-01-06 01:46:00 36.06 Cara [facility] Body height 2021-01-06 01:46:00 157.5 cm [facility] Body weight 2021-01-06 01:46:00 81.647 kg [facility] BMI 2021-01-06 01:46:00 32.92 kg/m2 [facility] Body mass index 2021-01-06 01:46:00 96.57 % Unive rsity of (BMI) [Percentile] [facility] Per age and sex Branch Systolic blood 2020-04-02 17:35:00 116 mm[Hg] Univer [facility]ity of pressure [facility] Diastolic blood 2020-04-02 17:35:00 72 mm[Hg] [facility]ive [facility] of pressure [facility] Heart rate 2020-04-02 16:53:00 73 /min [facility] Body temperature 2020-04-02 16:53:00 36.44 Cara [facility] Respiratory rate 2020-04-02 16:53:00 18 /min [facility] of [facility] Body height 2020-04-02 16:53:00 159 cm [facility] Body weight 2020-04-02 16:53:00 82.101 kg [facility] BMI 2020-04-02 16:53:00 32.48 kg/m2 [facility] Oxygen saturation in 2020-04-02 16:53:00 98 /min [facility] Systolic blood 2020-04-02 17:35:00 116 mm[Hg] [facility]iver [facility] of pressure [facility] Diastolic blood 2020-04-02 17:35:00 72 mm[Hg] [facility]ive [facility]ity of pressure [facility] Heart rate 2020-04-02 16:53:00 73 /min [facility] Body temperature 2020-04-02 16:53:00 36.44 Cara [facility] Respiratory rate 2020-04-02 16:53:00 18 /min [facility] Body height 2020-04-02 16:53:00 159 cm [facility] Body weight 2020-04-02 16:53:00 82.101 kg [facility] BMI 2020-04-02 16:53:00 32.48 kg/m2 [facility] Oxygen saturation in 2020-04-02 16:53:00 98 /min [facility] Systolic blood 2020-02-24 19:17:00 121 mm[Hg] [facility]iver [facility] of pressure [facility] Diastolic blood 2020-02-24 19:17:00 77 mm[Hg] [facility] of pressure [facility] Heart rate 2020-02-24 19:16:00 84 /min [facility] Body temperature 2020-02-24 19:16:00 36.56 Cara [facility] Respiratory rate 2020-02-24 19:16:00 18 /min [facility] Body weight 2020-02-24 19:16:00 83.598 kg [facility] Oxygen saturation in 2020-02-24 19:16:00 100 /min [facility] Systolic blood 2020-01-30 21:13:00 123 mm[Hg] [facility]iver [facility] of pressure [facility] Diastolic blood 2020-01-30 21:13:00 70 mm[Hg] [facility] of pressure [facility] Heart rate 2020-01-30 21:13:00 83 /min [facility] Body temperature 2020-01-30 21:13:00 37.11 Cara [facility] Respiratory rate 2020-01-30 21:13:00 18 /min [facility] Body height 2020-01-30 21:13:00 157.5 cm [facility] Body weight 2020-01-30 21:13:00 85.276 kg [facility] BMI 2020-01-30 21:13:00 34.39 kg/m2 [facility] Systolic blood 2020-01-10 20:41:00 129 mm[Hg] [facility] of pressure [facility] Diastolic blood 2020-01-10 20:41:00 72 mm[Hg] [facility] pressure [facility] Heart rate 2020-01-10 20:41:00 98 /min [facility] Body temperature 2020-01-10 20:41:00 36.72 Cara [facility] Respiratory rate 2020-01-10 20:41:00 18 /min [facility] Body height 2020-01-10 20:41:00 157.5 cm [facility] Body weight 2020-01-10 20:41:00 85.276 kg [facility] BMI 2020-01-10 20:41:00 34.39 kg/m2 [facility] Body temperature 2019-10-12 19:39:00 35.72 Cara [facility] Body height 2019-10-12 19:39:00 159 cm [facility] Body weight 2019-10-12 19:39:00 82.6 kg [facility] BMI 2019-10-12 19:39:00 32.67 kg/m2 [facility] Systolic blood 2019-10-07 18:10:00 121 mm[Hg] [facility] of pressure [facility] Diastolic blood 2019-10-07 18:10:00 79 mm[Hg] [facility] of pressure [facility] Heart rate 2019-10-07 18:10:00 77 /min [facility] Body temperature 2019-10-07 18:10:00 36.89 Cara [facility] Respiratory rate 2019-10-07 18:10:00 18 /min [facility] Body height 2019-10-07 18:10:00 157.5 cm [facility] Body weight 2019-10-07 18:10:00 81.647 kg [facility] BMI 2019-10-07 18:10:00 32.92 kg/m2 [facility] of [facility] Systolic blood 2019-10-06 20:18:00 123 mm[Hg] Univer [facility]ity of pressure [facility] Diastolic blood 2019-10-06 20:18:00 86 mm[Hg] [facility]ive [facility] of pressure [facility] Heart rate 2019-10-06 20:18:00 96 /min [facility] Body temperature 2019-10-06 20:18:00 36.78 Cara [facility] Respiratory rate 2019-10-06 20:18:00 16 /min [facility] of [facility] Body height 2019-10-06 20:18:00 157.5 cm [facility] Body weight 2019-10-06 20:18:00 80.786 kg [facility] BMI 2019-10-06 20:18:00 32.57 kg/m2 [facility] Oxygen saturation in 2019-10-06 20:18:00 98 /min [facility] Systolic blood 2019-08-04 18:52:00 129 mm[Hg] [facility]iver [facility]ity of pressure [facility] Diastolic blood 2019-08-04 18:52:00 78 mm[Hg] [facility] of pressure [facility] Heart rate 2019-08-04 18:52:00 86 /min [facility] Body temperature 2019-08-04 18:52:00 37.22 Cara [facility] Respiratory rate 2019-08-04 18:52:00 18 /min [facility] Body height 2019-08-04 18:52:00 157.5 cm [facility] Body weight 2019-08-04 18:52:00 84.369 kg [facility] BMI 2019-08-04 18:52:00 34.02 kg/m2 [facility] Systolic blood 2019-05-23 21:28:00 121 mm[Hg] Univer [facility] of pressure [facility] Diastolic blood 2019-05-23 21:28:00 77 mm[Hg] [facility] of pressure [facility] Heart rate 2019-05-23 21:28:00 80 /min [facility] Body temperature 2019-05-23 21:28:00 37.39 Cara [facility] Respiratory rate 2019-05-23 21:28:00 18 /min [facility] Body height 2019-05-23 21:28:00 158.5 cm [facility] Body weight 2019-05-23 21:28:00 85.095 kg [facility] BMI 2019-05-23 21:28:00 33.87 kg/m2 [facility] Oxygen saturation in 2019-05-23 21:28:00 100 /min [facility] Systolic blood 2019-05-16 21:51:00 123 mm[Hg] Univer [facility] of pressure [facility] Diastolic blood 2019-05-16 21:51:00 73 mm[Hg] [facility] Heart rate 2019-05-16 21:51:00 72 /min [facility] Body temperature 2019-05-16 21:51:00 36.78 Cara [facility] Respiratory rate 2019-05-16 21:51:00 18 /min [facility] Body height 2019-05-16 21:51:00 157.5 cm [facility] Body weight 2019-05-16 21:51:00 85.276 kg [facility] BMI 2019-05-16 21:51:00 34.39 kg/m2 [facility] Body temperature 2019-05-03 20:09:00 36.83 Cara [facility] Body height 2019-05-03 20:09:00 157.5 cm [facility] Body weight 2019-05-03 20:09:00 82.2 kg [facility] BMI 2019-05-03 20:09:00 33.14 kg/m2 [facility] Body temperature 2019-03-22 21:03:00 37 Cara [facility] Body weight 2019-03-22 21:03:00 83.4 kg [facility] Systolic blood 2018-11-12 13:21:00 120 mm[Hg] [facility] pressure [facility] Diastolic blood 2018-11-12 13:21:00 78 mm[Hg] [facility] pressure [facility] Heart rate 2018-11-12 13:21:00 72 /min [facility] Body temperature 2018-11-12 13:21:00 37.83 Cara [facility] Respiratory rate 2018-11-12 13:21:00 18 /min [facility] Body weight 2018-11-12 13:21:00 76.023 kg [facility] BMI 2018-11-12 13:21:00 29.69 kg/m2 [facility] Systolic blood 2018-11-11 13:42:00 123 mm[Hg] [facility] pressure [facility] Diastolic blood 2018-11-11 13:42:00 81 mm[Hg] [facility] pressure [facility] Heart rate 2018-11-11 13:42:00 64 /min [facility] Body temperature 2018-11-11 13:42:00 36.94 Cara [facility] Respiratory rate 2018-11-11 13:42:00 18 /min [facility] Body height 2018-11-11 13:42:00 160 cm [facility] Body weight 2018-11-11 13:42:00 75.297 kg [facility] BMI 2018-11-11 13:42:00 29.41 kg/m2 [facility] Systolic blood 2018-10-07 20:01:00 123 mm[Hg] [facility] pressure [facility] Diastolic blood 2018-10-07 20:01:00 80 mm[Hg] [facility] pressure [facility] Heart rate 2018-10-07 20:01:00 97 /min [facility] Body temperature 2018-10-07 20:01:00 36.56 Car[facility] Respiratory rate 2018-10-07 20:01:00 16 /min [facility] Body height 2018-10-07 20:01:00 158.7 cm [facility] Body weight 2018-10-07 20:01:00 74.844 kg [facility] BMI 2018-10-07 20:01:00 29.72 kg/m2 [facility] Oxygen saturation in 2018-10-07 20:01:00 99 /min [facility] Procedures Procedure Date / Time Performing Source Performed Clinician BI ULTRASOUND BREAST COMPLETE 2022-11-[address] [facility] RIGHT 16:39:22 Medical Branch POCT MOLECULAR STREP 2022-08-11 Unknown, Attending [facility] 16:25:00 [facility] POCT URINALYSIS W/O SPECIFIC 2022-05-27 Rolan Casarez [facility] GRAVITY 20:36:00 [facility] PATIENT FINANCIAL POLICY 2022-05-27 Doctor Unassigned, [facility] 20:07:26 [facility] BI ULTRASOUND BREAST COMPLETE 2022-02-[address] [facility] BILATERAL 19:23:[address] [facility] US PELVIS COMPLETE WITH 2022-02-21 Rolan Casarez [facility] TRANSVAGINAL 17:55:[address] [facility] DISCLOSURE AND CONSENT, 2022-01-31 Doctor Unassigned, [facility] MEDICAL AND SURGICAL 06:01:00 [place] [facility] PROCEDURES POCT TEST 2022-01-31 Brooklyn Garduno [facility] 00:00:[address] [facility] ASSIGNMENT OF BENEFITS 2022-01-02 Doctor Unassigned, [facility] 14:07:23 [facility] POCT TEST 2021-01-06 Roma Adame [facility] 02:44:[address] [facility] URINALYSIS 2021-01-06 Roma Adame [facility] 02:34:[address] [facility] URINE DRUG (IMMUNOASSAY) - 2021-01-06 Roma Adame [facility] COMPREHENSIVE DRUG SCREEN W/O 02:34[facility] LACTIC ACID WHOLE BLOOD 2021-01-06 Roma Adame [facility] 02:23:[address] [facility] COMP. METABOLIC PANEL (03515) 2021-01-06 Roma Adame [facility] 02:03:[address] [facility] ETHANOL 2021-01-06 Roma Adame [facility] 02:03:00 Medical Branch CBC WITH DIFF 2021-01-06 Roma Adame [facility] 02:03:00 Medical Branch MENINGOCOCCAL B VACCINE, OMV, 2020-04-16 Karen Tamayo [facility] 2 DOSE, IM 16:43:42 Medical Branch POCT RAPID STREP SCREEN FOR 2020-02-24 Karen Tamayo [facility] GROUP A 19:24:00 Medical Branch EXTERNAL PROVIDER RECORDS 2019-10-13 Doctor Unassigned, [facility] 05:01:00 [facility] PEDI ELECTROENCEPHALOGRAM 2019-10-12 Dalia Arreguin [facility] 00:00:00 Medical Branch DISCLOSURE AND CONSENT, 2019-10-07 Doctor Unassigned, [facility] MEDICAL AND SURGICAL 05:01:00 [place] PROCEDURES AUTHORIZATION TO RELEASE PHI 2019-10-06 Doctor Aliza, [facility] TO [facility] 05:01:00 [facility] BI ULTRASOUND BREAST LIMITED 2019-08-16 Alexandria Whitmore [facility] LEFT 13:29:57 Medical Branch CONSENT FOR CONTRACEPTION 2019-08-04 Doctor Unassigned, [facility] 05:01:00 [facility] POCT TEST 2019-08-04 Alexandria Whitmore [place] 00:00:00 Medical Branch POCT URINALYSIS W/O SPECIFIC 2019-08-04 Alexandria Whitmore [facility] GRAVITY 00:00:00 Medical [place] AGREEMENTS AUTHORIZATIONS AND 2019-06-16 Doctor Kelirenu, [facility] IRREVOCABLE ASSIGNMENTS (FORM 05:01:00 [place] Fl dical Branch 2000) CONSENT/REFUSAL FOR DIAGNOSIS 2019-05-03 Doctor Unassigned, [facility] AND TREATMENT 19:11:33 [facility] URINE CULTURE 2019-03-22 Demetrius Morgan [place] 21:53:00 Medical Branch CONSENT FOR DEPO-PROVERA 2018-11-11 Doctor Unassigned, [facility] 05:01:00 [facility] MENINGOCOCCAL B 2018-10-07 Karen Tamayo [facility] VACCINE(TRUMENBA) 2 OR 3 DOSE 20:59:48 Fl dical Branch SERIES, IM MENACTRA (MCV4-D) VACCINE 2018-10-07 Karen Tamayo [facility] 20:59:21 Medical Branch Encounters Start End Encounter Admission Attending Care Care Encounter Source Date/Time Date/Time Type Type Clinicians Facility Department ID 2021-01-22 Emergency [facility] [id number] Univers 07:20:19 ity [facility] 2023-01-05 2023-01-05 Outpatient Suly CASAREZ [facility] [id number] Univers 08:30:00 08:30:00 ROLAN ity [facility] 2022-12-02 2022-12-02 Outpatient R GREGORIO DELCID [facility] [id number] Univers 10:00:00 10:00:00 ity [facility] 2022-12-01 2022-12-01 [facility] [id number] Univers 00:00:00 00:00:00 [facility] 350.1.13.10 ity of CANCER 4.2.7.2.686 [facility] [place] - [phone] [place] [address] Branch 2022-11-26 2022-11-26 Telephone Viet [facility] 1.2.689.738 [id number] [facility] 00:00:00 00:00:00 Corrine J SPECIALTY 350.1.13.10 ity of [place] 4.2.7.2.686 [facility] [place] [id number] [facility] 161 Branch 2022-11-18 2022-11-18 Outpatient Suly CASAREZ [facility] [id number] Univers 09:00:00 14:20:05 ROLAN ity [facility] 2022-11-18 2022-11-18 Office Lauri Leslie [facility] 1.2.840. 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, [facility] 1.2.840.114 [id number] Univers 10:15:00 10:30:00 Visit Rolan Casarez SPECIALTY 350.1.13.10 ity of C[place] 4.2.7.2.686 [place] C[place] AT [phone] Fl una [place] 353 [facility] 2022-11-13 2022-11-13 Outpatient R HAIM ALEXANDRIA [facility] [id number] Univers 09:00:00 09:31:00 ity of [facility] 2022-11-13 2022-11-13 Office [facility] 1.2.679.242 [id number] Univers 09:00:00 09:31:00 Visit Skyler RIVERA 350.1.13.10 i ty of [place].2.7.2.686 [place] [phone] Fl [facility] 2022-11-13 2022-11-13 Letter [facility] 1.2.247.167 [id number] Univers 00:00:00 00:00:00 (Out) Skyler RIVERA 350.1.13.10 i ty of [place] 4.2.7.2.686 [place] [phone] Fl [address] 2022-11-12 2022-11-12 Outpatient R HERMELINDO [facility] [id number] Univers 10:15:25 23:59:00 ROLAN ityoly [facility] 2022-11-12 2022-11-12 [facility] Hermelindo [facility] 1.2.840.114 [id number] Univers 10:15:25 23:59:00 Encounter Rolan [facility] 350.1.13.10 ity of CLINICS 4.2.7.2.686 [place] [id number] [facility] [address] [place] 2022-10-28 2022-10-28 Outpatient R HERMELINDO [facility] [id number] Univers 09:30:00 09:59:16 ROLAN ityoly [facility] 2022-10-28 2022-10-28 Office Hermelindo [facility] 1.2.708.233 [id number] Univers 09:30:00 09:59:16 Visit Rolan RIVERA 350.1.13.10 i ty of [facility] 4.2.7.2.[place] [phone] Fl dical [address] 2022-10-28 2022-10-28 Letter Hermelindo [facility] 1.2.561.906 [id number] Univers 00:00:00 00:00:00 (Out) Rolan NICOLE 350.1.13.10 i ty of [facility] 4.2.7.2.[place] [phone] [address] 2022-08-11 2022-08-11 Outpatient R NELLA [facility] [id number] Univers 11:00:00 11:47:20 REENU ity of [facility] 2022-08-11 2022-08-11 [facility]gent [facility] 1.2.840.11 [id number] Univers 11:00:00 11:47:20 Care Unknown, Attending HEALTH 350.1.13.10 ity of [place] 4.2.7.2.686 [place] as NAYANA?BLEA [phone] [facility] [address] [place] MEDICAL OFFICE [facility] 2022-06-16 2022-06-16 Telephone Hermelindo [facility] 1.2.840.114 [id number] Univers 00:00:00 00:00:00 Rolan RIVERA 350.1.13.10 i ty of [facility] 4.2.7.2.[place] [phone] Fl dic[address] 2022-06-13 2022-06-13 Outpatient R HERMELINDO [facility] [id number] Univers 14:05:25 23:59:00 ROLAN ity of [facility] 2022-06-13 2022-06-13 [facility] MADY Casarez 1.2.840.114 [id number] Univers 14:05:25 23:59:00 Encounter Rolan [facility] 350.1.13.10 ity of [facility] 4.2.7.2.686 [place] [id number] [facility] [address] [place] 2022-06-06 2022-06-06 Outpatient R HERMELINDO [facility] [id number] Univers 00:00:00 00:00:00 ROLAN ity [facility] 2022-05-27 2022-05-27 [facility] [id number] Univers 14:00:00 15:06:27 ROLAN camiloy [facility] 2022-05-27 2022-05-27 Office [facility] 1.2.748.048 [id number] Univers 14:00:00 15:06:27 Visit Rolan NICOLE 350.1.13.10 i ty [place] 4.2.7.2.686 [place] [phone] Fl dical NAL [address] [facility] 2022-05-27 2022-05-27 Orders Doctor PATITO 1.2.840.114 [id number] Univers 00:00:00 00:00:00 Only Unassigned, JACQUE 350.1.13.10 ity of [place] [facility] 4.2.7.2.686 [place] as [phone] [facility] 009 Branch 2022-02-21 2022-02-21 [facility] 1.2.840.114 [id number] Univers 12:00:22 23:59:00 Encounter Rolan Sherwood HEALTH 350.1.13.10 ity of CLINICS 4.2.7.2.[place] [id number] [facility] [address] [place] 2022-02-21 2022-02-21 [facility] [id number] Univers 10:48:03 11:59:00 [facility]22-02-21 2022-02-21 [facility] 1.2.840.114 [id number] Univers 10:48:03 11:59:00 Encounter Rolan Sherwood HEALTH 350.1.13.10 ity of CL[place] 4[place]2.7.[place] [id number] [facility] [address] [place] 2022-02-05 2022-02-05 Outpatient Suly GARDUNO [facility] [id number] Univers 13:00:00 13:36:35 [place] ityoly [facility] 2022-02-05 2022-02-05 Office [facility] 1.2.636.068 [id number] Univers 13:00:00 13:36:35 Visit Brooklyn L SEKOU 350.1.13.10 i ty of WOMEN'S 4.2.7.2.[place] [phone] [address] 2022-02-05 2022-02-05 Telephone Ad, [facility] 1.2.221.046 [id number] Univers 00:00:00 00:00:00 Brooklyn Keyana RIVERA 350.1.13.10 ity [place] 4.2.7.2.[place] [phone] Fl dical NAL [address] [place] [address] 2022-02-05 2022-02-05 Letter [facility]The [facility] 1.2.357.445 [id number] Univers 00:00:00 00:00:00 (Out) Brooklyn SAPP 350.1.13.10 i ty of WOMEN'S 4.2.7.2.686 [place] [id number] [address] 2022-01-31 2022-01-31 [facility] [id number] Univers 08:30:00 09:33:19 [place] ity of [facility] 2022-01-31 2022-01-31 [facility] 1.2.840.114 [id number] Univers 08:30:00 09:33:19 Visit Brooklyn RIVERA 350.1.13.10 ity [place] 4.2.7.2.686 [place] [phone] Fl dic[address] 2022-01-31 2022-01-31 Orders Doctor PATITO 1.2.840.114 [id number] Univers 00:00:00 00:00:00 Only Unassigned, JACQUE 350.1.13.10 ity of [place] [facility] 4.2.7.2.686 [place] as [phone] [address] 2022-01-31 2022-01-31 [facility] 1.2.840.114 [id number] Univers 00:00:00 00:00:00 (Out) Brooklyn RIVERA 350.1.13.10 ity of [facility] 4.2.7.2.[place] [phone] Fl dical NAL [address] [facility] 2022-01-13 2022-01-13 Outpatient R GREGORIO DELCID [facility] [id number] Univers 09:00:00 09:00:00 ity of [facility] 2022-01-13 2022-01-13 Telephone Brandt [facility] 1.2.705.458 [id number] Univers 00:00:00 00:00:00 Liu SPECIALTY 350.1.13.10 ity of [place].2.[place] [phone] [address] 2022-01-10 2022-01-10 Outpatient R JONATHAN [facility] [id number] Univers 13:00:00 13:00:00 HAYLEY antoine [facility] 2022-01-02 2022-01-02 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 2, Adc Lab [facility] 1.2.840.114 [id number] Univers 10:45:00 11:00:00 Visit Rolan Casarez 350.1.13.10 it[place] of [place] 4.2.7.2.686 [place] [phone] Fl dical NAL 353 [facility] 2022-01-02 2022-01-02 Outpatient R HERMELINDO [facility] [id number] Univers 09:30:00 10:12:42 ROLAN antoine [facility] 2022-01-02 2022-01-02 Office Hermelindo [facility] 1.2.619.084 [id number] Univers 09:30:00 10:12:42 Visit Rolan RIVERA 350.1.13.10 i ty [place] 4.2.7.2.686 [place] [phone] Fl dical NAL 134 [facility] 2022-01-02 2022-01-02 Orders Doctor CAPUTO 1.2.840.114 [id number] Univers 00:00:00 00:00:00 Only Unassigned, JACQUE 350.1.13.10 ity of [place] [facility] 4.2.7.2.686 [place] as [phone] [facility] [address] [place] 2021-04-03 2021-04-03 Outpatient Suly TAMAYO [facility] [id number] Univers 10:40:00 10:40:00 KAREN [facility] 2021-02-22 2021-02-22 Telephone [facility] 1.2.725.523 [id number] Univers 00:00:00 00:00:00 Alena RIVERA 350.1.13.10 ity of [place].2.7.2.[place] [phone] Fl dical NAL [address] [facility] 2021-02-12 2021-02-12 Telephone [facility] 1.2.840.114 [id number] Univers 00:00:00 00:00:00 Rolan RIVERA 350.1.13.10 i ty [place] 4.2.7.2.686 [place] [phone] Fl dical NAL [address] [facility] 2021-01-05 2021-01-05 Emergency [facility] 1.2.025.545 [id number] Univers 20:38:00 22:55:00 Roma Rivera 350.1.13.10 ity of [place] 4.2.7.2.[place] [phone] [facility] [address] [place] 2020-08-23 2020-08-23 Outpatient Suly CASAREZ [facility] [id number] Univers 15:00:00 15:00:00 ROLAN [facility] 2020-08-06 2020-08-06 Outpatient Suly CASAREZ [facility] [id number] Univers 14:00:00 14:00:00 ROLAN [facility] 2020-07-06 2020-07-06 Outpatient Suly CANALES [facility] [id number] Univers 11:20:00 11:20:34 EMELY [facility] 2020-06-15 2020-06-15 Outpatient Suly CANALES [facility] [id number] Univers 11:20:00 12:18:13 EMELY [facility] 2020-06-12 2020-06-12 Patient Jermain [facility] 1.2.840.114 [id number] 00:00:00 00:00:00 Outreach Chinmay PRIMARY 350.1.13.10 [place] CARE 4.2.7.2.686 PAVILLION [id number] [id number] 2020-06-12 2020-06-12 Patient Jermain [facility] 1.2.840.114 [id number] Univers 00:00:00 00:00:00 Outreach Chinmay PRIMARY 350.1.13.10 i ty of [place] CARE 4.2.7.2.686 [place]AV[place] [phone] Fl dic[address] 2020-04-25 2020-04-25 Telephone Alexandria Whitmore [facility] 1.2.840.114 [id number] 00:00:00 00:00:00 Cam Nicole 350.1.13.10 [place] 4.2.7.2.686 Professio [phone] [address] 2020-04-25 2020-04-25 Telephone Alexandria Whitmore [facility] 1.2.840.114 [id number] Univers 00:00:00 00:00:00 Cam Nicole 350.1.13.10 i ty of [place]2.[place].2.[place] Profess[place] [phone] [facility] 2020-04-16 2020-04-16 Nurse Nurse, Tony Quevedo [facility] 1.2.84 0.114 [id number] Univers 10:23:22 10:43:22 Visit Alena Erickson 350.1.13. 10 ity of [place] 4.2.7.2.686 [place] [phone] Fl dical [facility] 2020-04-16 2020-04-16 Outpatient R [facility] [id number] Univers 10:20:00 10:20:00 ity of [facility] 2020-04-03 2020-04-03 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 2, Adc Lab [facility] 1.2.840.114 [id number] Univers 11:08:11 11:23:11 Visit Alena Erickson 350.1.13. 10 ity of [place] 4.2.7.2.[place] [phone] Fl dical [facility] [address] [facility] 2020-04-03 2020-04-03 Outpatient R DRE [facility] [id number] Univers 11:00:00 11:00:00 ALENA antoine [facility] 2020-04-02 2020-04-02 [facility] 1.2.840.114 [id number] Univers 11:30:50 13:18:47 Encounter Karen [place] 350.1.13.10 ity of [place] 4.2.7.2.[place] [phone] Fl dic[address] 2020-04-02 2020-04-02 Office [facility] 1.2.840.114 [id number] 10:47:55 11:50:03 Visit Karen Rivera 350.1.13.10 [place] 4.2.7.2.686 Professio [phone] [address] 2020-04-02 2020-04-02 Office [facility] 1.2.840.114 [id number] Univers 10:47:55 11:50:03 Visit Karen Rivera 350.1.13.10 i ty of [place] 4.2.7.2.[place] [phone] [address] 2020-04-02 2020-04-02 Outpatient R ARTUR [facility] [id number] Univers 10:40:00 10:40:00 KAREN ityoly [facility] 2020-04-02 2020-04-02 Kathy Erickson [facility] 1.2.840.114 [id number] Univers 00:00:00 00:00:00 (Out) Alena Rivera 350.1.13.10 ity of [place] 4.2.7.2.[place] [phone] Fl dic[address] 2020-02-24 2020-02-24 Office [facility] 1.2.840.114 [id number] Univers 13:11:12 14:13:29 Visit Karen Rivera 350.1.13.10 i ty of [place] 4.2.7.2.[place] [phone] Fl dical nal [address] [facility] 2020-02-24 2020-02-24 Outpatient R ARTUR [facility] [id number] Univers 13:00:00 13:00:00 KAREN [facility] 2020-02-01 2020-02-01 Outpatient R [facility] [id number] Univers 13:00:00 13:00:00 ity [facility] 2020-01-30 2020-01-30 Office Alexandria Whitmore [facility] 1.2.311.729 [id number] Univers 14:47:20 15:35:45 Visit Skyler Rivera 350.1.13.10 i ty of [place] 4.2.[place].2.[place] [phone] Fl dical [facility] 2020-01-30 2020-01-30 Outpatient R ALEXANDRIA WHITMORE [facility] [id number] Univers 15:00:00 15:00[facility]00 [facility] 2020-01-10 2020-01-10 Office Hermelindo [facility] 1.2.463.202 [id number] Univers 14:35:02 16:02:32 Visit Rolan Nicole 350.1.13.10 i ty of [place] 4.2.7.2.[place] [phone] Fl dic[address] 2020-01-10 2020-01-10 Outpatient R HERMELINDO [facility] [id number] Univers 14:45:00 14:45:00 ROLAN yoly [facility] 2019-12-15 2019-12-15 Outpatient R HERMELINDO [facility] [id number] Univers 10:45:00 10:45:00 [facility] 2019-12-15 2019-12-15 Telephone [facility] 1.2.058.504 [id number] Univers 00:00:00 00:00:00 Alena France RECREATION THERAPIST 350.1.13.10 ity of [facility] 4.2.7.2.686 [place] as MATERNAL [phone] Med ical & CHILD 107 [facility] 2019-11-30 2019-11-30 Outpatient R [facility] [id number] Univers 15:00:00 15:00:00 ity of [facility] 2019-11-18 2019-11-18 Outpatient R HERMELINDO [facility] [id number] Univers 09:30:00 09:30:00 ROLAN ity [facility] 2019-11-14 2019-11-14 Telephone Alexandria Whitmore [facility] 1.2.840.114 [id number] Univers 00:00:00 00:00:00 Cam [place] 350.1.13.10 i ty of [place] 4.2.7.2.[place] [phone] Me dical nal [address] [facility] 2019-10-13 2019-10-13 Orders Doctor PATITO 1.2.840.114 [id number] Univers 00:00:00 00:00:00 Only Unassigned, JACQUE 350.1.13.10 ity of [place] [facility] 4.2.7.2.686 [place] as [phone] [facility] [address] 2019-10-12 2019-10-12 Hospital Dalia Arreguin [facility] 1.2.840.11 [id number] Univers 12:44:00 23:59:00 Encounter Eeg, Sapna Pedi Neuro SPECIALTY 350.1. 13.10 ity of [place].2.[place] [phone] [facility] [address] 2019-10-12 2019-10-12 Office Boris CTMARY 1.2.840.114 [id number] Univers 12:44:33 13:44:33 Visit Dalia J SPECIALTY 350.1.13.10 ity of [place]2.7.2.[place] [phone] [facility] [address] 2019-10-12 2019-10-12 Outpatient R BORIS [facility] [id number] Univers 13:00:00 13:00:00 DALIA antoine [facility] 2019-10-07 2019-10-07 Office Alexandria Whitmore [facility] 1.2.616.226 [id number] Univers 12:46:26 13:32:19 Visit Skyler Rivera 350.1.13.10 i ty of [place] 4.2.7.2.[place] [phone] Fl dical [facility] [address] [facility] 2019-10-07 2019-10-07 Outpatient R ALEXANDRIA WHITMORE [facility] [id number] Univers 13:00:00 13:00:00 ity of [facility] 2019-10-07 2019-10-07 Orders Doctor PATITO 1.2.840.114 [id number] Univers 00:00:00 00:00:00 Only Unassigned, JACQUE 350.1.13.10 ity of [place] [facility] 4.2.7.2.686 [place] as [phone] [address] 2019-10-06 2019-10-06 Office [facility] 1.2.840.114 [id number] Univers 14:55:54 17:13:05 Visit Alena Rivera 350.1.13.10 ity of [place].2.[place] [phone] [facility] [address] [facility] 2019-10-06 2019-10-06 [facility] [id number] Univers 15:00:00 15:00:00 ALENA antoine [facility] 2019-10-06 2019-10-06 Orders Doctor CAPUTO 1.2.840.114 [id number] Univers 00:00:00 00:00:00 Only Unassigned, JACQUE 350.1.13.10 ity of [place] [facility]ITAL 4.2.7.2.686 [place]anda as [phone] [address] 2019-10-05 2019-10-05 Telephone [facility] 1.2.840.114 [id number] Univers 00:00:00 00:00:00 Rolan Rivera 350.1.13.10 i ty of [place].2.[place] [phone] [facility] 2019-09-28 2019-09-28 Outpatient R [facility] [id number] Univers 15:30:00 15:30:00 ity [facility] 2019-09-15 2019-09-15 Outpatient R HERMELINDO [facility] [id number] Univers 15:00:00 15:00:00 ROLAN ity of [facility] 2019-08-31 2019-08-31 Outpatient R [facility] [id number] Univers 15:00:00 15:00:00 ity of [facility] 2019-08-16 2019-08-16 Outpatient R HAIM ALEXANDRIA [facility] [id number] Univers 07:38:13 23:59:00 ity of [facility] 2019-08-16 2019-08-16 [facility] 1.2.840.114 [id number] Univers 07:38:00 23:59:00 Encounter Skyler Rivera 350.1.13.10 ity of [place] [phone] [facility] [address] 2019-08-08 2019-08-08 Case [facility] 1.2.739.190 [id number] Univers 00:00:00 00:00:00 Management Rolan Rivera 350.1.13.10 ity of [place].2.[place] [phone] Fl dical nal [address] [place] [address] 2019-08-04 2019-08-04 Office Alexandria Whitmore [facility] [id number] Univers 13:33:06 14:36:24 Visit kSyler Rivera 350.1.13.10 i ty [place] [phone] Fl dical nal [address] [place] [address] 2019-08-04 2019-08-04 Outpatient R ALEXANDRIA WHITMORE [facility] [id number] Univers 13:30:00 13:30:00 ity of [facility] 2019-08-04 2019-08-04 Orders Doctor CAPUTO [id number] [id number] Univers 00:00:00 00:00:00 Only Unassigned, JACQUE 350.1.13.10 ity of [place] [facility] 4.2.7.2.686 Tawanda as [phone] [facility] [address] 2019-07-19 2019-07-19 Telephone Alexandria Whitmore [facility] [id number] Univers 00:00:00 00:00:00 Skyler Rivera 350.1.13.10 i ty [place] [phone] Fl dical nal [address] [facility] 2019-06-16 2019-06-16 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 2, Adc [facility] 1.2.840.114 [id number] Univers 11:24:51 11:39:51 Visit Alena Erickson 350.1.13. 10 it[place] of [place] [phone] [facility] nal [address] [facility] 2019-06-16 2019-06-16 Outpatient R DRE [facility] [id number] Univers 11:15:00 11:15:00 ALENA antoine [facility] 2019-06-16 2019-06-16 Orders Doctor PATITO 1.2.840.114 [id number] Univers 00:00:00 00:00:00 Only Unassigned, JACQUE 350.1.13.10 ity of [place] [facility] 4.2.7.2.686 Tawanda as [phone] [address] 2019-06-16 2019-06-16 Telephone Dre [facility] [id number] Univers 00:00:00 00:00:00 Alena Rivera 350.1.13.10 it[place] [phone] Fl dical nal 225 [facility] 2019-06-15 2019-06-15 Outpatient R HERMELINDO [facility] [id number] Univers 10:45:00 10:45:00 ROLAN antoine [facility] 2019-06-15 2019-06-15 Telemedici Hermelindo [facility] [id number] Univers 08:26:10 08:56:10 ne Visit Rolan Rivera 350.1.13.10 it[place] of [place] [phone] Fl dical nal 134 [facility] 2019-06-09 2019-06-09 Outpatient R HERMELINDO [facility] [id number] Univers 08:45:00 08:45:00 ROLAN yoly [facility] 2019-06-02 2019-06-02 Outpatient R HERMELINDO [facility] [id number] Univers 15:45:00 15:45:00 ROLAN [facility] 2019-05-31 2019-05-31 Outpatient R [facility] [id number] Univers 13:45:00 13:45:00 ity [facility] 2019-05-23 2019-05-23 [facility] [id number] Univers 14:21:31 16:27:38 Visit Alena Rivera 350.1.13.10 it[place] of [place] [phone] [facility] 2019-05-23 2019-05-23 Outpatient R DRE [facility] [id number] Univers 14:30:00 14:30:00 ALENA ityoly [facility] 2019-05-23 2019-05-23 Letter [facility] 1.2.840.114 [id number] Univers 00:00:00 00:00:00 (Out) Alena Rivera 350.1.13.10 it[place] [phone] Fl dical [facility] 225 [facility] 2019-05-16 2019-05-16 Nurse Nurse, [facility] 1.2.840.114 [id number] Univers 15:19:14 15:52:21 Visit Alexandria Whitmore 350.1.13.10 it[place] of [place] [phone] Fl dical nal 134 [facility] 2019-05-16 2019-05-16 Outpatient R ALEXANDRIA WHITMORE [facility] [id number] Univers 15:30:00 15:30:00 ity [facility] 2019-05-03 2019-05-03 Office Urology, Ruby Quevedo [facility] 1.2. 840.114 [id number] Univers 13:12:12 14:43:58 Visit Eddie, Ravi [facility] 350.1.13.1 0 [place] [phone] [address] Office Building 2019-05-03 2019-05-03 Orders Doctor PATITO 1.2.840.114 [id number] Univers 00:00:00 00:00:00 Only Unassigned, JACQUE 350.1.13.10 ity of [place] [facility] 4.2.7.2.686 Tawanda as [phone] [place] [address] [address] 2019-05-03 2019-05-03 Letter Urology, [facility] 1.2.840.114 [id number] Univers 00:00:00 00:00:00 (Out) [facility] 350.1.13.10 [place] [phone] [address] Office Building 2019-03-22 2019-03-22 Office Urology, Sapna Pedi [facility] 1.2.840. 114 [id number] Univers 14:44:34 16:20:55 Visit Demetrius Morgan [facility] 350.1.13 .10 [place] [phone] [address] 2018-12-01 2018-12-01 Telephone [place], [facility] 1.2.840.114 [id number] Univers 00:00:00 00:00:00 Apryl Rivera 350.1.13.10 i ty of [place] [phone] Fl dical nal [address] [place] [address] 2018-11-30 2018-11-30 Telephone Guerrero, [facility] 1.2.840.114 [id number] Univers 00:00:00 00:00:00 Apryl Rivera 350.1.13.10 i ty of [place] [phone] [address] 2018-11-12 2018-11-12 Office [facility] 1.2.840.114 [id number] [facility] 07:59:52 08:43:27 Visit Aprylyoly Rivera 350.1.13.10 i ty [place] [phone] [facility] 134 [facility] 2018-11-12 2018-11-12 [facility] 1.2.840.114 [id number] Univers 00:00:00 00:00:00 (Out) Apryl Nicole 350.1.13.10 i [place] [phone] [facility] 134 [facility] 2018-11-11 2018-11-11 Nurse Nurse, [facility] 1.2.840.114 [id number] [facility] 08:24:16 08:54:22 Visit Alexandria Whitmore 350.1.13.10 it[place] of [place] [phone] [facility] 134 [facility] 2018-11-11 2018-11-11 Orders Doctor PATITO 1.2.840.114 [id number] Univers 00:00:00 00:00:00 Only Unassigned, JACQUE 350.1.13.10 ity of [place] [facility] 4.2.7.2.686 Tawanda as [phone] [address] 2018-10-07 2018-10-07 Office Karen Tamayo [facility] 1.2.840.1 [id number] [facility] 14:49:05 16:35:54 Visit Alena Erickson 350.1.13. 10 it[place] of [place] [phone] [facility] 225 [facility] Results Test Description Test Time Test Comments Results Result Comments Source POCT MOLECULAR STREP 2022-08-11 16:32:49 Test Item Value Reference Range Interpretation Comme nts POCT Molecular Strep (test code = 57681-7) Negative Negative Lab Interpretation (test code = 71786-5) Normal [facility] SPECIFIC [id number] 20:36:00 Test Item Value Reference Range Interpretation [...] code = 3257) negative Negative - Negative [facility] URINALYSIS W/O SPECIFIC [id number] 20:36:00 Test Item Value Reference Range Interpretation [...] code = 3257) negative Negative - Negative [facility] [id number] 15:01:00 Test Item Value Reference Range Interpretation Comments POCT PREG (test code = 1605) Negative On board controls acceptable with C Yes Line (test code = 3574) POCT PREG LOT # (test code = 3575) POCT PREG TEST DATE (test code = 3576) [facility] [id number] 15:01:00 Test Item Value Reference Range Interpretation Comments POCT PREG (test code = 1605) Negative On board controls acceptable with C Yes Line (test code = 3574) POCT PREG LOT # (test code = 3575) POCT PREG TEST DATE (test code = 3576) [facility] [id number] 15:01:00 Test Item Value Reference Range Interpretation Comments POCT PREG (test code = 1605) Negative On board controls acceptable with C Yes Line (test code = 3574) POCT PREG LOT # (test code = 3575) POCT PREG TEST DATE (test code = 3576) [facility]2021-[facility]-17 02:46:43 Test Item Value Reference Range Interpretation Comments ALCOHOL (test code = <10 mg/dL 9845377223) HAZEL (test code = HAZEL) <10 Fcbybcvx79-076 Toxic>100 Depression of HELICOPTER CREW CHIEF>400 Fatalities Reported [facility] [id number] 02:44:00 Test Item Value Reference Range Interpretation Comments POCT PREG (test code = 1605) negative On board controls acceptable with present C Line (test code = 3574) POCT PREG LOT # (test code = 3575) [id number] POCT PREG TEST DATE (test 2022-04-22 code = 3576) Lab Interpretation (test code = Normal 41740-8) [facility]. METABOLIC PANEL (97611)2021-01-06 02:40:21 Test Item Value Reference Range Interpretation Comments NA (test code = 139 mmol/L 135-145 4678910706) K (test code = 3.8 mmol/L 3.5-5.0 4557194323) CL (test code = 114 mmol/L 98-108 H 0998455763) CO2 TOTAL (test code = 20 mmol/L 23-31 L 7313036205) AGAP (test code = 2-16 3833921494) BUN (test code = 13 mg/dL 7-23 7395941524) GLUCOSE (test code = 86 mg/dL 70-110 7134624196) CREATININE (test code = 0.53 mg/dL 0.50-1.04 6814679775) TOTAL BILI (test code = 0.4 mg/dL 0.1-1.6 1155844904) CALCIUM (test code = 7.8 mg/dL 8.6-10.6 L 1868568346) T PROTEIN (test code = 5.6 g/dL 6.3-8.2 L 0618102482) ALBUMIN (test code = 3.1 g/dL 3.5-5.0 L 9524220240) ALK PHOS (test code = 36 U/L 34-122 1894533042) ALTv (test code = 14 U/L 5-35 1742-6) AST(SGOT) (test code = 26 U/L 13-40 1726210109) eGFR (test code = mL/min/1.73m2 1463254921) HAZEL (test code = HAZEL) Association of [...] tests). Lab Interpretation Abnormal (test code = 27036-5) [facility] Whole [id number] 02:30:07 Test Item Value Reference Range Interpretation Comments LACTIC ACID (test code = 1.53 mmol/L 0.50-2.20 5778869846) Lab Interpretation (test code = Normal 98404-7) [facility] WITH [id number] 02:20:01 Test Item Value Reference Range Interpretation Comments WBC (test code = See_Comment [Automated 4790-2) message] The sy stem which generated this [...] RDW-SD (test code = 45.0 fL 38.5-49.0 30618-8) RDW-CV (test code = 14.8 % 11.5-14.0 H 788-0) PLT (test code = See_Comment [Automated 777-3) message] The sy stem which generated this result transmitted reference range : 135 - 361 10*3/ ?L. The reference r ilsa was not used to interpret this result as normal/abnormal . MPV (test code = 10.5 fL 9.4-13.3 68037-2) NRBC/100 WBC (test See_Comment [Automat ed code = 1602236748) message] The system which generated this result transmitted reference range : 0.0 - 10.0 /100 WBCs. The refer ence range was not u sed to interpret th is result as normal/abnormal . NRBC x10^3 (test code <0.01 See_Comment [Auto mated = 5422525657) message] The s ystem which generated this result transmitted reference range : 10*3/?L. The reference range was not used to interpret this result as normal/abnormal . GRAN MAT (NEUT) % 45.6 % (test code = 770-8) IMM GRAN % (test code 0.20 % = 6362412102) LYMPH % (test code = 42.0 % 736-9) MONO % (test code = 9.9 % 5905-5) EOS % (test code = 2.1 % 713-8) BASO % (test code = 0.2 % 706-2) GRAN MAT x10^3(ANC) 3.68 10*3/uL 1.50-10.30 (test code = 0797204433) IMM GRAN x10^3 (test <0.03 0.00-0.06 code = 9532131033) LYMPH x10^3 (test code 3.39 10*3/uL 0.70-7.40 = 731-0) MONO x10^3 (test code 0.80 10*3/uL 0.00-0.50 H = 742-7) EOS x10^3 (test code = 0.17 10*3/uL 0.00-0.40 711-2) BASO x10^3 (test code <0.03 0.00-0.10 = 704-7) Lab Interpretation Abnormal (test code = 78283-2) [facility] RAPID STREP SCREEN FOR GROUP [id number] 19:24:00 Test Item Value Reference Range Interpretation Comments POCT GP A STREP (test code = negative Negative - Negative 47933-9) [facility] RAPID STREP SCREEN FOR GROUP [id number] 19:24:00 Test Item Value Reference Range Interpretation Comments POCT GP A STREP (test code = negative Negative - Negative 01718-5) [facility] [id number] 00:00:00 Test Item Value Reference Range Interpretation Comments IMP (test code = Electroencephalogram IMP) Report NAME: Romy BernsteinAGE: 19 Year(s) 6 Month(s)DATE OF EE10/12/2019PROCEDURE: ?EEG ? ? EEG#: [id number] PHYSICIAN: Dalia Arreguin MDLOCATION: ?[facility] DIAGNOSIS: Seizure vs PNESPERTINENT MEDICATIONS: ?N/A [...] 44m39s Lab Interpretation Normal (test code = 52513-1) [facility] ULTRASOUND BREAST LIMITED [id number] 13:32:53HISTORY: 2 palpable masses in the left [...] patient and hermother. ACR classification: Category II. [facility], Radiant Results Inft User - 08/16/2019 [...] the patient and hermother.ACR classification: Category II.[facility] SPECIFIC GRAVITY 2019-08-04 19:35:00 [...] code = 3257) 4+ Negative - Negative General acute hospitalCT URINALYSIS W/O SPECIFIC [id number] 19:35:00 Test Item Value Reference Range Interpretation [...] code = 3257) 4+ Negative - Negative General acute hospitalCT [id number] 18:57:00 Test Item Value Reference Range Interpretation Comments POCT PREG (test code = 1605) Negative On board controls acceptable with C Yes Line (test code = 3574) POCT PREG LOT # (test code = 3575) POCT PREG TEST DATE (test code = 3576) [facility] [id number] 18:57:00 Test Item Value Reference Range Interpretation Comments POCT PREG (test code = 1605) Negative On board controls acceptable with C Yes Line (test code = 3574) POCT PREG LOT # (test code = 3575) POCT PREG TEST DATE (test code = 3576) [facility] [id number] 22:13:00 Test Item Value Reference Range Interpretation Comments URINE CULTURE (test > 100,000 CFU/mL mixed code = 630-4) aerobic organisms - suggests endogenous microbial contamination [facility] [id number] 22:13:00 Test Item Value Reference Range Interpretation Comments URINE CULTURE (test > 100,000 CFU/mL mixed code = 630-4) aerobic organisms - suggests endogenous microbial contamination [facility] Notes Date/Time Note Provider Source 2022-12-01 [facility] 10:19:49-00:00 I contacted Ms. Bernstein to let her know I received her hereditary cancer testing result. 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 CHEK2 nick rs are at an increased risk for breast and colorectal cancer with specific management recommendations for these risks, although I reviewed that the specific variant identifie d in Ms. Bernstein's testing is associated with lower cancer risks than other CHEK2 pathogenic variants. Ms. Bernstein noted that her mot her missed her genetics appointment since she was in the hospital for a mini-stroke. Her mother was interested in rescheduling her genetics appointment for testing. She wante d to learn more information about the CHEK2 variant though and its impact on her and her relatives. A follow-up appointment will be scheduled for tomorrow, December 02 at 10:00 to discuss the implica tions of this result for her and her family members. She had no further questions at this time. Recommendations and Decisions 1) Ms. Bernstein had hereditary cancer testing due to her family history of breast, ovarian, uterine, stomach, pancreatic, bladder, and brain cancer. Her testing was positive for a CHEK2 pathogenic (low pen etrance) variant, specifical ly c.470T>C (p.Wup952Djx). This result is associated with an increased risk for breast and colon cancer with specific management recommendations for these risks, although the specific risks associate d with this variant are lower in comparison to other CHEK2 pathogenic variants. 2) A follow-up appointment w ill be scheduled for tomorrow to discuss the implications of this result for her and her family members Electronically signed by Leslie Carreon at 12:38 PM CDT 2022-11-26 Formatting of this note might be differe nt from the original. Corrine Llanos RN [facility] 11:50:52-00:00 [facility] lab results scanned to chart. 2022-11-18 Formatting of this note is different from the or iginal. [facility] 10:15:00-00:00 Images from the original note were not included. Venipuncture collection perf ormed by clean technique on the left anticubitus. Total of 1 attempts were made. Slight pressure and a bandage/dressing were applied to the site(s). The patient experienced n o complications. The followi ng specimens were processed according to instructions and picked up by Genetics depart. per lab order on 11/18/22: LT BLUE SST RED 1 LAV PPT DK GREEN (LiHep) DK GREEN (SodH) CARNEY DK BLUE (K2) DK BLUE (S) ACD Blood Culture NIPT/NTD Electronically signed by Saritha Wilkins at 10/22 10:32 AM CDT
--- NOTE | 2022-12-03 20:23 | EDPHYS ---
Physician Documentation [facility] Name: Romy Bernstein Age: 22 yrs Sex: Female : 2000 Arrival Date: 12/03/2022 Time: 18:57 Bed 11 Private MD: ED Physician Warren Guerra HPI: 12/03 19:30 This 22 yrs old Female presents to ER via Ambulatory with complaints of cp Test. 19:30 Patient is a 22-year-old female who presents to the emergency department requesting a cp test. Patient reports taking a home test that came back positive so she came to the emergency department requesting a confirmatory test. Patient reports she has had some breast tenderness which raised her suspicion for possible . 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 - Social history:: Smoking status: Patient denies any tobacco usage or history of. ROS: 19:33 Constitutional: Negative for body aches, chills, fever, poor PO intake. cp 19:33 Eyes: Negative for injury, pain, redness, and discharge. cp 19:33 Cardiovascular: Negative for chest pain, palpitations. 19:33 Respiratory: Negative for cough, shortness of breath, wheezing. 19:33 Abdomen/GI: Negative for abdominal pain, nausea, vomiting, and diarrhea. 19:33 : Negative for urinary symptoms, pelvic pain, vaginal bleeding. 19:33 Neuro: Negative for altered mental status, dizziness, headache, weakness. 19:33 All other systems are negative. Exam: 19:35 Constitutional: The patient appears in no acute distress, alert, awake, non-toxic, well cp developed, well nourished, anxious. 19:35 Head/Face: Normocephalic, atraumatic. cp 19:35 Eyes: Periorbital structures: appear normal, Conjunctiva: normal, no exudate, no injection, Sclera: no appreciated abnormality, Lids and lashes: appear normal, bilaterally. 19:35 ENT: External ear(s): are unremarkable, Nose: is normal, Mouth: Lips: moist, Oral mucosa: moist, Posterior pharynx: Airway: no evidence of obstruction, patent. 19:35 Chest/axilla: Inspection: normal. 19:35 Cardiovascular: Rate: normal, Rhythm: regular. 19:35 Respiratory: the patient does not display signs of respiratory distress, Respirations: normal, no use of accessory muscles, no retractions, labored breathing, is not present. 19:35 Abdomen/GI: Exam negative for discomfort, distension, guarding, Inspection: abdomen appears normal. Vital Signs: 19:19 BP 127 / 86; Pulse 72; Resp 16 S; Temp 98.8(TE); Pulse Ox 100% on R/A; Weight 81.65 kg as6 (R); Height 5 ft. 3 in. (R); Pain 8/10; 20:34 BP 119 / 72; Pulse 79; Resp 18 S; Pulse Ox 100% on R/A; as6 19:19 Body Mass Index 31.89 (81.65 kg, 160.02 cm) as6 19:19 Pain Scale: Adult as6 MDM: 19:19 Patient medically screened. cp 19:40 Differential diagnosis: , anxiety. cp 20:23 Data reviewed: vital signs, nurses notes, lab test result(s). cp 20:23 Counseling: I had a detailed discussion with the patient and/or guardian regarding the cp historical points, exam findings, and any diagnostic results supporting the discharge/admit diagnosis, to return to the emergency department if symptoms worsen or persist or if there are any questions or concerns that arise at home. 12/03 19:18 Order name: Test, Serum; Complete Time: 20:22 cp 12/03 20:22 Interpretation: Reviewed. cp Administered Medications: No medications were administered Disposition: 12/04 19:44 Co-signature as Attending Physician, Warren Guerra DO I reviewed the patient's care ms3 provided by the Advanced Practice Provider and agree with the diagnosis and treatment plan. Disposition Summary: 12/03/22 20:23 Discharge Ordered Location: Home cp Problem: new cp Symptoms: have improved cp Condition: Stable cp Diagnosis - Encounter for test, result negative cp Followup: cp - With: Private Physician - When: 2 - 3 days - Reason: Worsening of condition Discharge Instructions: - Discharge Summary Sheet cp - Home Test Information cp Forms: - Medication Reconciliation Form cp - Thank You Letter cp - Antibiotic Education cp - Prescription Opioid Use cp - Patient Portal Instructions cp - Leadership Thank You Letter cp Signatures: Dispatcher [employer] Bari Manriquez PA PA cp Sims, Marcus, DO DO ms3 Kieran Hastings, RN RN as6
--- NOTE | 2022-12-03 20:23 | ER ---
Nurse's Notes [facility] Name: Romy Bernstein Age: 22 yrs Sex: Female : 2000 Arrival Date: 12/03/2022 Time: 18:57 Bed 11 Private MD: Diagnosis: Encounter for test, result negative Presentation: 12/03 19:19 Chief complaint: Patient states: "I need to know for sure if I'm ". Coronavirus as6 screen: At this time, the client does not indicate any symptoms associated with coronavirus-19. Ebola Screen: No symptoms or risks identified at this time. Initial Sepsis Screen: Does the patient meet any 2 criteria? No. Patient's initial sepsis screen is negative. Does the patient have a suspected source of infection? No. Patient's initial sepsis screen is negative. Risk Assessment: Do you want to hurt yourself or someone else? Patient reports no desire to harm self or others. Onset of symptoms was December 03, 2022. 19:19 Acuity: SERA 4 as6 19:19 Method Of Arrival: Ambulatory as6 Triage Assessment: 20:34 General: Appears in no apparent distress. Behavior is calm, cooperative. Pain: as6 Complains of pain in right breast and left breast Quality of pain is described as tender. 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 - Social history:: Smoking status: Patient denies any tobacco usage or history of. Screenin:34 [facility] ED Fall Risk Assessment (Adult) Score/Fall Risk Level 0 - 2 = Low Risk. Abuse as6 screen: Denies threats or abuse. Denies injuries from another. Nutritional screening: No deficits noted. Tuberculosis screening: No symptoms or risk factors identified. Vital Signs: 19:19 BP 127 / 86; Pulse 72; Resp 16 S; Temp 98.8(TE); Pulse Ox 100% on R/A; Weight 81.65 kg as6 (R); Height 5 ft. 3 in. (R); Pain 8/10; 20:34 BP 119 / 72; Pulse 79; Resp 18 S; Pulse Ox 100% on R/A; as6 19:19 Body Mass Index 31.89 (81.65 kg, 160.02 cm) as6 19:19 Pain Scale: Adult as6 ED Course: 18:59 Patient arrived in ED. mr 19:00 Bari Bazzi PA is PHCP. idalmis 19:00 Warren Guerra DO is Attending Physician. cp 19:19 Arm band placed on. as6 19:21 Triage completed. as6 19:29 Test, Serum Sent. as6 20:34 Bed in low position. Call light in reach. Provided Education on: follow up. as6 20:35 No provider procedures requiring assistance completed. Patient did not have IV access as6 during this emergency room visit. Administered Medications: No medications were administered Medication: 20:34 VIS not applicable for this client. as6 Outcome: 20:23 Discharge ordered by MD. cp 20:35 Discharged to home ambulatory. as6 20:35 Condition: stable 20:35 Discharge instructions given to patient, Instructed on discharge instructions, follow up and referral plans. Demonstrated understanding of instructions, follow-up care. 20:35 Patient left the ED. as6 Signatures: Florecita Man mr Bari Bazzi PA PA cp Slawson, Ashby, RN RN as6
[2022-12-03 21:31] VITALS: TEMP 98.8; O2SAT 100
[2022-12-03 21:32] VITALS: BP 119/72
== END 2022-12-03 20:35 | disposition home or self-care (01) ==
LOC: ER 18:57
DX: Z32.02 Encounter for pregnancy test, result negative (principal)
CPT/HCPCS: 36415; 84703; 99283

== ENCOUNTER 2023-01-15 13:11 | Emergency (ER) | payer OTHER ==
--- OUTSIDE RECORDS SUMMARY | 2023-01-15 13:19 | XMS REPORT | Continuity of Care Document ---
:2000 Author Organization [facility] t Address [address] [place] [address] Care Team Providers Name Role Phone Pcp, Patient Does Not Have A Primary Care Physician +[id number] ALEXANDRIA WHITMORE Attending Clinician Unavailable ROLAN CASAREZ Attending Clinician Unavailable MILAN BOSWELL Attending Clinician Unavailable Leslie Carreon Attending Clinician Unavailable Milan Boswell MD Attending Clinician Corrine Llanos RN Attending Clinician Unavailable Rolan Casarez PA-C Attending Clinician Lab, [facility] Attending Clinician Unavailable Alexandria Whitmore MD Attending Clinician MANNY CARMEN Attending Clinician Unavailable Manny Marley Attending Clinician Unknown, Attending Attending Clinician Unavailable Doctor Unassigned, [place] Attending Clinician Unavailable BROOKLYN GARDUNO Attending Clinician Unavailable Brooklyn Garduno MD Attending Clinician Liu Carlton Attending Clinician Unavailable HAYLEY CASTILLO Attending Clinician Unavailable 2, [facility] Attending Clinician Unavailable KAREN TAMAYO Attending Clinician Unavailable Alena Erickson MD Attending Clinician Roma Adame NP Attending Clinician EMELY CANALES Attending Clinician Unavailable Chinmay Aly DO Attending Clinician Nurse, Tony Maguire Pedi Attending Clinician Unavailable ALENA ERICKSON Attending Clinician [...] Date Expiration Date [facility] [id number] 2016 [facility] MEDICAID 00:00:00 [facility] [id number] 2022 00:00:00 BCBS [facility] [id number] 2022 00:00:00 MEDICAID OF [place] [id number] 2021 2022 00:00:00 00:00:00 Problems Condition Condition Condition Status Onset Resolution Last Treating Co mments Source Name Details Category Date Date Treatment Clinician Date Nexplanon Nexplanon Disease Active Uni vers in place in place 5-14 ity of 00:00: [place] 00 Medical Branch Burning Burning Disease Active 2019- Univers with with 5-14 ity of urination urination 00:00: [facility] Medical Branch Chronic Chronic Disease Active 2019- Univers nonintract nonintract 3-13 it y of able able 00:00: [place] headache, headache, 00 Medi milagros unspecifie unspecifie Br anch d headache d headache type type Obesity Obesity Disease Active Univers peds (BMI peds (BMI 7-19 ity of >=95 >=95 00:00: [place] percentile percentile 00 Me dical ) ) Branch Generalize Generalize Disease Active Overview : Univers d epilepsy d epilepsy 7-19 Formattin ity of 00:00: g of this [place] 00 note Medical might be Branch different [...] Univers gain gain 7-18 ity of 00:00: [address] Migraine Migraine Disease Active Unive rs without without 1-08 ity of aura and aura and 00:00: [place] without without 00 Medical status status Branch migrainosu migrainosu s, not s, not intractabl intractabl e e Family Family Disease Active 2017-03 Univers history of history of 0-24 it y of breast breast 00:00: [place] cancer cancer 00 [facility] Depo-Prove Depo-Prove Disease Active 2017-03 U nivers ra ra 0-24 [place] contrace[place]pt [place] status thea status 00 Me dical Branch 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 0-24 [place] of in [place] [facility] Asthma Asthma Disease Active Univers ity of [facility] Allergic Allergic Disease Active Unive rs rhinitis rhinitis ity of [facility] Family Family Disease Active Univers history [...] 1-14 ity of 00:00: [place] 00 Medical Dwarf Social History Social Habit Start Date Stop Date Quantity Comments Source History of tobacco Passive smoker Un iversity of use [facility] Gender identity Universit y of [facility] Sexual orientation [facility] Alcohol intake 2022-11-19 2022-11-19 Current University of 00:00:00 00:00:00 non-drinker of [facility] [place] [facility] alcohol Branch (finding) Exposure to 2022-08-01 2022-08-11 Not sure [facility] SARS-CoV-2 (event) 00:00:00 11:13:00 [facility] History of Social 2022-08-11 2022-08-11 Univers ity of function 00:00:00 00:00:00 [facility] Tobacco use and 2022-01-02 2022-01-02 Smokeless Universit y of exposure 00:00:00 00:00:00 tobacco non-user [facility] Sex Assigned At 2000 2002 Universit y of 00:00:00 00:00:00 [facility] Smoking Status Start Date Stop Date Source Never smoked tobacco [facility] Medications Ordered Filled Start Stop Current Ordering Indication Dosage Frequency Signature Comments Components Source Medication Medication Date Date Medication? Clinician (SIG) Name Name li 2022- No [id number] 5[drp] Place 5 Univers 0.3 % otic 08-11 Drops in ity of drops 00:00: 04:59 right ear [place] 00 :00 in the Medical morning Branch and 5 Drops in the evening. Do all this for 7 days. No known 2021-03 No No known Unive rs medications 1-16 medication it y of 13:07: [address] No known 2021-03 No No known Unive rs medications 1-16 medication it y of 13:07: [address] No known 2021-03 No No known Unive rs medications 1-16 medication it y of 13:07: [address] No known 2021-03 No No known Unive rs medications 1-16 medication it y of 13:07: [address] No known 2021-03 No No known Unive rs medications 1-16 medication it y of 13:07: [address] No known 2021-03 No No known Unive rs medications 1-16 medication it y of 13:07: [address] etonogestre 2021-03- No [id number] 68mg Univers L 04-02 ity of (NEXPLANON) 16:15: 15:23 [place] implant 68 00 :00 [facility] etonogestre 2021-03- No [id number] 68mg 68 mg, Univers L 04-02 Subdermal, ity of (NEXPLANON) 16:15: 15:23 ONCE NOW, [place] implant 68 00 :00 1 dose, On Med ical mg [facility] Branch 01/31/22 at 1015, Routine
Use approved by: TIMBER MANAGEMENT PROFESSOR etonogestre 2021-03- No [id number] 68mg Univers L 04-02 ity of (NEXPLANON) 16:15: 15:23 [place] implant 68 00 :00 [facility] etonogestre 2021-03- No [id number] 68mg 68 mg, Univers L 04-02 Subdermal, ity of (NEXPLANON) 16:15: 15:23 ONCE NOW, [place] implant 68 00 :00 1 dose, On Med ical mg [facility] Branch 01/31/22 at 1015, Routine
Use approved by: TIMBER MANAGEMENT PROFESSOR etonogestre 2021-03- No [id number] 68mg Univers L 04-02 ity of (NEXPLANON) 16:15: 15:23 [place] implant 68 00 :00 Medical mg Branch etonogestre 2021-03- No [id number] 68mg 68 mg, Univers L 04-02 Subdermal, ity of (NEXPLANON) 16:15: 15:23 ONCE NOW, [place] implant 68 00 :00 1 dose, On Med ical mg [facility] 01/31/22 at 1015, Routine
Use approved by: TIMBER MANAGEMENT PROFESSOR No known 2021-03 No No known Unive rs medications 1-11 medication it y of 08:48: [address] No known 2021-03 No No known Unive rs medications 1-11 medication it y of 08:48: [address] No known 2021-03 No No known Unive rs medications 0-13 medication it y of 09:58: [address] No known 2021-03 No No known Unive rs medications 0-13 medication it y of 09:58: [address] No known 2021-03 No No known Unive rs medications 0-13 medication it y of 09:58: [address] No known 2021-03 No No known Unive rs medications 0-13 medication it y of 09:58: [address] calcium 2020-03- No 1000mg 1,000 mg, [...] No Univers medications 0-16 ity of 23:25: [address] No known 2020-03 No Univers medications 0-16 ity of 23:25: [address] No known 2020-03 No No known Unive rs medications 0-16 medication it y of 23:25: s [address] ciprofloxac 2020-03- No [id number] 250mg Take 1 Univers in HCl 250 0-16 10-20 tablet by ity of mg tablet 00:00: 04:59 [place] 2 [place] :[place] (two) Medical times Branch daily for 3 days. fluticasone 0 Yes [id number] 1{spray Use 1 Univers propionate 1-11 } [place] in ity o f 50 00:00: each [place] mcg/actuati 00 nostril Medic al on nasal daily. Branch spray fluticasone 2020-0 Yes [id number] 1{spray Use 1 Univers propionate 1-11 } [place] in ity o f 50 00:00: each [place] mcg/actuati 00 nostril Medic al on nasal daily. Branch spray fluticasone 2020-0 Yes [id number] 1{spray Use 1 Univers propionate 1-11 } [place] in ity o f 50 00:00: each [place] mcg/actuati 00 nostril Medic al on nasal daily. Branch spray fluticasone Yes [id number] 1{spray Use 1 Univers propionate 1-11 } [place] in ity o f 50 00:00: each [place] mcg/actuati 00 nostril Medic al on nasal daily. Branch spray fluticasone Yes [id number] 1{spray Use 1 Univers propionate 1-11 } [place] in ity o f 50 00:00: each [place] mcg/actuati 00 nostril Medic al on nasal daily. Branch spray fluticasone Yes [id number] 1{spray Use 1 Univers propionate 1-11 } [place] in ity o f 50 00:00: each [place] mcg/actuati 00 nostril Medic al on nasal daily. Branch spray fluticasone 2020- No [id number] 1{spray Use 1 Univers propionate 1-11 10-16 } [place] in ity of 50 00:00: 00:00 each [place] mcg/actuati 00 :00 nostril Medic al on nasal daily. Branch spray ibuprofen 2019-03 Yes [id number] 600mg Take 1 U nivers 600 mg 2-04 tablet by ity of tablet 00:00: mouth [place] 00 every 8 Medical (eight) Branch hours as needed for Pain (scale 4-6) (headache) . cetirizine 2019-03 Yes [id number] 10mg Take 1 U nivers 10 mg 2-04 tablet by ity of tablet 00:00: mouth [place] 00 daily. Medical Branch fluticasone 2019-03 Yes [id number] 1{spray Use 1 Univers propionate 2-04 } [place] in ity o f 50 00:00: each [place] mcg/actuati 00 nostril Medic al on nasal daily. Branch spray ibuprofen 2019-03 Yes [id number] 600mg Take 1 U nivers 600 mg 2-04 tablet by ity of tablet 00:00: mouth [place] 00 every 8 Medical (eight) Branch hours as needed for Pain (scale 4-6) (headache) . cetirizine 2019-03 Yes [id number] 10mg Take 1 U nivers 10 mg 2-04 tablet by ity of tablet 00:00: mouth [place] 00 daily. Medical Branch fluticasone 2019-03 Yes [id number] 1{spray Use 1 Univers propionate 2-04 } [place] in ity o f 50 00:00: each [place] mcg/actuati 00 nostril Medic al on nasal daily. Branch spray cetirizine 2019- Yes [id number] 10mg Take 1 U nivers 10 mg 2-04 tablet by ity of tablet 00:00: mouth [place] 00 daily. Medical Branch cetirizine 2019- Yes [id number] 10mg Take 1 U nivers 10 mg 2-04 tablet by ity of tablet 00:00: mouth [place] 00 daily. Medical Branch cetirizine 2019- Yes [id number] 10mg Take 1 U nivers 10 mg 2-04 tablet by ity of tablet 00:00: mouth [place] 00 daily. Medical Branch cetirizine 2019- Yes [id number] 10mg Take 1 U nivers 10 mg 2-04 tablet by ity of tablet 00:00: mouth [place] 00 daily. Medical Branch cetirizine 2019- Yes [id number] 10mg Take 1 U nivers 10 mg 2-04 tablet by ity of tablet 00:00: mouth [place] 00 daily. Medical Branch cetirizine 2019- Yes [id number] 10mg Take 1 U nivers 10 mg 2-04 tablet by ity of tablet 00:00: mouth [place] 00 daily. Medical Branch cetirizine 2019-03 Yes [id number] 10mg Take 1 U nivers 10 mg 2-04 tablet by ity of tablet 00:00: mouth [place] 00 daily. Medical Branch cetirizine 2019- Yes [id number] 10mg Take 1 U nivers 10 mg 2-04 tablet by ity of tablet 00:00: mouth [place] 00 daily. Medical Branch cetirizine 2019- Yes [id number] 10mg Take 1 U nivers 10 mg 2-04 tablet by ity of tablet 00:00: mouth [place] 00 daily. Medical Branch cetirizine 2019- Yes [id number] 10mg Take 1 U nivers 10 mg 2-04 tablet by ity of tablet 00:00: mouth [place] 00 daily. Medical Branch cetirizine 2019- Yes [id number] 10mg Take 1 U nivers 10 mg 2-04 tablet by ity of tablet 00:00: mouth [place] 00 daily. Medical Branch cetirizine 2019- Yes [id number] 10mg Take 1 U nivers 10 mg 2-04 tablet by ity of tablet 00:00: mouth [place] 00 daily. Medical Branch cetirizine 2019-03- No [id number] 10mg Take 1 Univers 10 mg 2- 10-16 tablet by ity of tablet 00:00: 00:00 mouth [place] 00 :00 daily. Medical Branch ibuprofen 2019-03- No [id number] 600mg Take 1 Univers 600 mg 2-06 21-11 tablet by ity of tablet 00:00: 00:00 mouth [place] 00 :00 every 8 Medical (eight) Branch hours as needed for Pain (scale 4-6) (headache) . fluticasone 2019-03- No [id number] 1{spray Use 1 Univers propionate 04-26 } [place] in ity of 50 00:00: 00:00 each [place] mcg/actuati 00 :00 nostril Medic al on nasal daily. Branch spray ibuprofen 2019-03- No [id number] 600mg Take 1 Univers 600 mg 2-06 21-11 tablet by ity of tablet 00:00: 00:00 mouth [place] 00 :00 every 8 Medical (eight) Branch hours as needed for Pain (scale 4-6) (headache) . fluticasone 2019-03- No [id number] 1{spray Use 1 Univers propionate 04-26 } [place] in ity of 50 00:00: 00:00 each [place] mcg/actuati 00 :00 nostril Medic al on nasal daily. Branch spray fluticasone 2019-03- No [id number] 1{spray Use 1 Univers propionate 04-26 } [place] in ity of 50 00:00: 00:00 each [place] mcg/actuati 00 :00 nostril Medic al on nasal daily. Branch spray ibuprofen 2019-03- No [id number] 600mg Take 1 Univers 600 mg 211 tablet by ity of tablet 00:00: 00:00 mouth [place] 00 :00 every 8 Medical (eight) Branch hours as needed for Pain (scale 4-6) (headache) . fluticasone 2019-03- No [id number] 1{spray Use 1 Univers propionate 04-26 } [place] in ity of 50 00:00: 00:00 each [place] mcg/actuati 00 :00 nostril Medic al on nasal daily. Branch spray ibuprofen 2019-03- No [id number] 600mg Take 1 Univers 600 mg 04-26 tablet by ity of tablet 00:00: 00:00 mouth [place] 00 :00 every 8 Medical (eight) Branch hours as needed for Pain (scale 4-6) (headache) . fluticasone 2019-03- No [id number] 1{spray Use 1 Univers propionate 04-26 } [place] in ity of 50 00:00: 00:00 each [place] mcg/actuati 00 :00 nostril Medic al on nasal daily. Branch spray ibuprofen 2019-03- No [id number] 600mg Take 1 Univers 600 mg 04-26 tablet by ity of tablet 00:00: 00:00 mouth [place] 00 :00 every 8 Medical (eight) Branch hours as needed for Pain (scale 4-6) (headache) . fluticasone 2019-03- No [id number] 1{spray Use 1 Univers propionate 04-26 } [place] in ity of 50 00:00: 00:00 each [place] mcg/actuati 00 :00 nostril Medic al on nasal daily. Branch spray ibuprofen 2019-03- No [id number] 600mg Take 1 Univers 600 mg 04-26 tablet by ity of tablet 00:00: 00:00 mouth [place] 00 :00 every 8 Medical (eight) Branch hours as needed for Pain (scale 4-6) (headache) . fluticasone 2019-03- No [id number] 1{spray Use 1 Univers propionate 04-26 } [place] in ity of 50 00:00: 00:00 each [...] 01/30/20 at 1645, Routine
Use approved by: TIMBER MANAGEMENT PROFESSOR etonogestre 2020-1 2020- No 68mg Unive rs L 03-31 ity of (NEXPLANON) 22:45: 21:43 [place] implant 68 00 :00 Medical mg Branch etonogestre 2019- 2020- No 68mg 68 mg, Uni vers L 03-31 Subdermal, ity of (NEXPLANON) 22:45: 21:43 ONCE NOW, [place] implant 68 00 :00 1 dose, Medica l mg Mon Branch 01/30/20 at 1645, Routine
Use approved by: TIMBER MANAGEMENT PROFESSOR topiramate 2020-0 Yes [id number] 25mg Take 1 Univers (TOPAMAX) 7-22 tablet by ity o f 25 mg 00:00: mouth 2 [place] tablet 00 (two) Medical times Branch daily. topiramate 2020-0 Yes [id number] 25mg Take 1 Univers (TOPAMAX) 7-22 tablet by ity o f 25 mg 00:00: mouth 2 [place] tablet 00 (two) Medical times Branch daily. topiramate 2020-0 Yes [id number] 25mg Take 1 Univers (TOPAMAX) 7-22 tablet by ity o f 25 mg 00:00: mouth 2 [place] tablet 00 (two) Medical times Branch daily. topiramate 2020-0 Yes [id number] 25mg Take 1 Univers (TOPAMAX) 7-22 tablet by ity o f 25 mg 00:00: mouth 2 [place] tablet 00 (two) Medical times Branch daily. topiramate 2020-0 Yes [id number] 25mg Take 1 Univers (TOPAMAX) 7-22 tablet by ity o f 25 mg 00:00: mouth 2 [place] tablet 00 (two) Medical times Branch daily. topiramate 2020-0 Yes [id number] 25mg Take 1 Univers (TOPAMAX) 7-22 tablet by ity o f 25 mg 00:00: mouth 2 [place] tablet 00 (two) Medical times Branch daily. topiramate 2020-0 Yes [id number] 25mg Take 1 Univers (TOPAMAX) 7-22 tablet by ity o f 25 mg 00:00: mouth 2 [place] tablet 00 (two) Medical times Branch daily. topiramate 2020-0 Yes [id number] 25mg Take 1 Univers (TOPAMAX) 7-22 tablet by ity o f 25 mg 00:00: mouth 2 [place] tablet 00 (two) Medical times Branch daily. topiramate 2020-0 Yes [id number] 25mg Take 1 Univers (TOPAMAX) 7-22 tablet by ity o f 25 mg 00:00: mouth 2 [place] tablet 00 (two) Medical times Branch daily. topiramate 2020-0 Yes [id number] 25mg Take 1 Univers (TOPAMAX) 7-22 tablet by ity o f 25 mg 00:00: mouth 2 [place] tablet 00 (two) Medical times Branch daily. topiramate 2020-0 2020- No [id number] 25mg Take 1 Univers (TOPAMAX) 7-22 12-04 tablet by ity of 25 mg 00:00: 00:00 mouth 2 [place] tablet 00 :00 (two) Medical times Branch daily. topiramate 2020-0 2020- No [id number] 25mg Take 1 Univers (TOPAMAX) 7-22 12-04 [...] Medical times Branch daily. omeprazole 2020-0 Yes [id number] 20mg Take 1 Univers 20 mg 7-16 capsule by ity of capsule 00:00: mouth [place] 00 daily. Medical Branch topiramate 2020-0 Yes 25mg Take 1 Unive rs (TOPAMAX) 7-16 tablet by ity o f 25 mg 00:00: mouth 2 [place] tablet 00 (two) Medical times Branch daily. omeprazole 2020-0 Yes [id number] 20mg Take 1 Univers 20 mg 7-16 capsule by ity of capsule 00:00: mouth [place] 00 daily. Medical Branch topiramate 2020-0 Yes 25mg Take 1 Unive rs (TOPAMAX) 7-16 tablet by ity o f 25 mg 00:00: mouth 2 [place] tablet 00 (two) Medical times Branch daily. omeprazole 2020-0 Yes [id number] 20mg Take 1 Univers 20 mg 7-16 capsule by ity of capsule 00:00: mouth [place] 00 daily. Medical Branch omeprazole 2020-0 Yes [id number] 20mg Take 1 Univers 20 mg 7-16 capsule by ity of capsule 00:00: mouth [place] 00 daily. Medical Branch omeprazole 2020-0 Yes [id number] 20mg Take 1 Univers 20 mg 7-16 capsule by ity of capsule 00:00: mouth [place] 00 daily. Medical Branch omeprazole 2020-0 Yes [id number] 20mg Take 1 Univers 20 mg 7-16 capsule by ity of capsule 00:00: mouth [place] 00 daily. Medical Branch omeprazole 2020-0 Yes [id number] 20mg Take 1 Univers 20 mg 7-16 capsule by ity of capsule 00:00: mouth [place] 00 daily. Medical Branch omeprazole 2020-0 Yes [id number] 20mg Take 1 Univers 20 mg 7-16 capsule by ity of capsule 00:00: mouth [place] 00 daily. Medical Branch omeprazole 2020-0 Yes [id number] 20mg Take 1 Univers 20 mg 7-16 capsule by ity of capsule 00:00: mouth [place] 00 daily. Medical Branch omeprazole 2020-0 Yes [id number] 20mg Take 1 Univers 20 mg 7-16 capsule by ity of capsule 00:00: mouth [place] 00 daily. Medical Branch omeprazole 2020-0 Yes [id number] 20mg Take 1 Univers 20 mg 7-16 capsule by ity of capsule 00:00: mouth [place] 00 daily. Medical Branch omeprazole 2020-0 Yes [id number] 20mg Take 1 Univers 20 mg 7-16 capsule by ity of capsule 00:00: mouth [place] 00 daily. Medical Branch omeprazole 2020-0 Yes [id number] 20mg Take 1 Univers 20 mg 7-16 capsule by ity of capsule 00:00: mouth [place] 00 daily. Medical Branch omeprazole 2020-0 Yes [id number] 20mg Take 1 Univers 20 mg 7-16 capsule by ity of capsule 00:00: mouth [place] 00 daily. Medical Branch omeprazole 2020-0 Yes [id number] 20mg Take 1 Univers 20 mg 7-16 capsule by ity of capsule 00:00: mouth [place] 00 daily. Medical Branch omeprazole 2020-0 Yes [id number] 20mg Take 1 Univers 20 mg 7-16 capsule by ity of capsule 00:00: mouth [place] 00 daily. Medical Branch omeprazole 2020-0 Yes [id number] 20mg Take 1 Univers 20 mg 7-16 capsule by ity of capsule 00:00: mouth [place] 00 daily. Medical Branch omeprazole 2020-0 2020- No [id number] 20mg Take 1 Univers 20 mg 7-16 12-04 capsule by ity of capsule 00:00: 00:00 mouth [place] 00 :00 daily. Medical Branch omeprazole 2020-0 2020- No [id number] 20mg Take 1 Univers 20 mg 7-16 [...] mouth ity of tablet 00:00: as needed. [place] 00 Medical Branch meclizine 2020-0 Yes 25mg Take 25 mg Un dante 25 mg 7-07 by mouth ity of tablet 00:00: as needed. [place] Medical Branch meclizine 2020-0 Yes 25mg Take 25 mg Un dante 25 mg 7-07 by mouth ity of tablet 00:00: as needed. [place] Medical Branch meclizine 2020-0 Yes 25mg Take 25 mg Un dante 25 mg 7-07 by mouth ity of tablet 00:00: as needed. [place] Medical Branch meclizine 2020-0 Yes 25mg Take 25 mg Un dante 25 mg 7-07 by mouth ity of tablet 00:00: as needed. [place] [address] Medical Branch meclizine 2020-0 Yes 25mg Take 25 mg Un dante 25 mg 7-07 by mouth ity of tablet 00:00: as needed. [place] [address] Medical Branch meclizine 2020-0 Yes 25mg Take 25 mg Un dante 25 mg 7-07 by mouth ity of tablet 00:00: as needed. [place] [address] Medical Branch meclizine 2020-0 Yes 25mg Take 25 mg Un dante 25 mg 7-07 by mouth ity of tablet 00:00: as needed. [place] [address] Medical Branch meclizine 2020-0 Yes 25mg Take 25 mg Un dante 25 mg 7-07 by mouth ity of tablet 00:00: as needed. [place] [address] Medical Branch meclizine 2020-0 Yes 25mg Take 25 mg Un dante 25 mg 7-07 by mouth ity of tablet 00:00: as needed. [place] [address] Medical Branch meclizine 2020-0 Yes 25mg Take 25 mg Un dante 25 mg 7-07 by mouth ity of tablet 00:00: as needed. [place] [address] Medical Branch meclizine 2020-0 Yes 25mg Take 25 mg Un dante 25 mg 7-07 by mouth ity of tablet 00:00: as needed. [place] [address] Medical Branch meclizine 2020-0 Yes 25mg Take 25 mg Un dante 25 mg 7-07 by mouth ity of tablet 00:00: as needed. [place] [address] Medical Branch meclizine 2020-0 Yes 25mg Take 25 mg Un dante 25 mg 7-07 by mouth ity of tablet 00:00: as needed. [place] [address] Medical Branch meclizine 2020-0 Yes 25mg Take 25 mg Un dante 25 mg 7-07 by mouth ity of tablet 00:00: as needed. [place] Medical Branch meclizine 2020-0 Yes 25mg Take 25 mg Un dante 25 mg 7-07 by mouth ity of tablet 00:00: as needed. [place] Medical Branch meclizine 2020-0 Yes 25mg Take 25 mg Un dante 25 mg 7-07 by mouth ity of tablet 00:00: as needed. [place] Medical Branch meclizine 2020-0 2020- No 25mg Take 25 mg U nivers 25 mg 7- 12-04 by mouth ity of tablet 00:00: 00:00 [place]. [place] :[place] Branch meclizine 2020-0 2020- No 25mg Take 25 mg U nivers 25 mg - 12-04 by mouth ity of tablet 00:00: 00:00 [place]. [place] 00 :[place] Branch Nitrofurant 2020-0 Yes [id number] 100mg Take 1 Univers oin&Nit. 5-18 capsule by ity o f [place]rocryst 00:00: mouth 2 [place] (MACROBID) 00 (two) Medical 100 mg times Branch capsule daily. Nitrofurant 2020-0 Yes [id number] 100mg Take 1 Univers oin&Nit. 5-18 capsule by ity o f [place] 00:00: mouth 2 [place] (MACROBID) 00 (two) Medical 100 mg times Branch capsule daily. Nitrofurant 2020-0 Yes [id number] 100mg Take 1 Univers oin&Nit. 5-18 capsule by ity o f [place] 00:00: mouth 2 [place] (MACROBID) 00 (two) Medical 100 mg times Branch capsule daily. Nitrofurant 2020-0 2020- No [id number] 100mg Take 1 Univers oin&Nit. 5-18 07-16 capsule by ity of Macrocryst 00:00: 00:00 mouth 2 [place] (MACROBID) 00 :00 (two) Medical 100 mg times Branch capsule daily. Nitrofurant 2020-0 2020- No [id number] 100mg Take 1 Univers oin&Nit. 5-18 07-16 capsule by ity of Macrocryst 00:00: 00:00 mouth 2 [place] (MACROBID) 00 :00 (two) Medical 100 mg times Branch capsule daily. etonogestre 2020-0 2020- No 68mg Unive rs l 08-03 ity of (NEXPLANON) 20:45: 19:36 [place] implant 68 00 :00 Medical mg Branch etonogestre 2020-0 2020- No 68mg 68 mg, Uni vers l 08-03 Subdermal, ity of (NEXPLANON) 20:45: 19:36 ONCE NOW, [place] implant 68 00 :00 1 dose, Medica l mg Gladys Branch 08/04/19 at 1545, Routine
Use approved by: TIMBER MANAGEMENT PROFESSOR etonogestre 2020-0 2020- No 68mg Unive rs l 08-03 ity of (NEXPLANON) 20:45: 19:36 [place] implant 68 00 :00 Medical mg Branch etonogestre 2020-0 2020- No 68mg 68 mg, Uni vers l 08-03 Subdermal, ity of (NEXPLANON) 20:45: 19:36 ONCE NOW, [place] implant 68 00 :00 1 dose, Medica l mg Gladys Branch 08/04/19 at 1545, Routine
Use approved by: TIMBER MANAGEMENT PROFESSOR norelgestro 2020-0 Yes [id number] 1{patch Apply 1 Univers min-ethinyl 3-25 } Patch to ity of estradiol 00:00: skin [place] 150-35 00 weekly. Medical mcg/24 hr Branch patch norelgestro 2020-0 Yes [id number] 1{patch Apply 1 Univers min-ethinyl 3-25 } Patch to ity of estradiol 00:00: skin [place] 150-35 00 weekly. Medical mcg/24 hr Branch patch norelgestro 2020-0 Yes [id number] 1{patch Apply 1 Univers min-ethinyl 3-25 } Patch to ity of estradiol 00:00: skin [place] 150-35 00 weekly. Medical mcg/24 hr Branch patch norelgestro 2020-0 Yes [id number] 1{patch Apply 1 [facility] min-ethinyl 3-25 } Patch to ity of estradiol 00:00: skin [place] 150-35 00 weekly. Medical mcg/24 hr Branch patch norelgestro 2020-0 Yes [id number] 1{patch Apply 1 [facility] min-ethinyl 3-25 } Patch to ity of estradiol 00:00: [facility] 150-35 00 weekly. Medical mcg/24 hr Branch patch norelgestro 2020-0 2020- No [id number] 1{patch Apply 1 [facility] min-ethinyl 3-25 05-14 } Patch to ity of estradiol 00:00: 00:00 [facility] 150-35 00 :00 weekly. Medical mcg/24 hr Branch patch norelgestro 2019-0 2020- No [id number] 1{patch Apply 1 [facility] min-ethinyl 3-25 05-14 } Patch to ity of estradiol 00:00: 00:00 [facility] 150-35 00 :00 weekly. Medical mcg/24 hr Branch patch ibuprofen 2020-0 Yes [id number] 600mg Take 1 U nivers 600 mg 3-02 tablet by ity of tablet 00:00: mouth [place] 00 every 8 Medical (eight) Branch hours as needed for Pain (scale 4-6) (headache) . ibuprofen 2020-0 Yes [id number] 600mg Take 1 U nivers 600 mg 3-02 tablet by ity of tablet 00:00: mouth [place] 00 every 8 Medical (eight) Branch hours as needed for Pain (scale 4-6) (headache) . ibuprofen 2020-0 Yes [id number] 600mg Take 1 U nivers 600 mg 3-02 tablet by ity of tablet 00:00: mouth [place] 00 every 8 Medical (eight) Branch hours as needed for Pain (scale 4-6) (headache) . ibuprofen 2020-0 Yes [id number] 600mg Take 1 U nivers 600 mg 3-02 tablet by ity of tablet 00:00: mouth [place] 00 every 8 Medical (eight) Branch hours as needed for Pain (scale 4-6) (headache) . ibuprofen 2020-0 Yes [id number] 600mg Take 1 U nivers 600 mg 3-02 tablet by ity of tablet 00:00: mouth [place] 00 every 8 Medical (eight) Branch hours as needed for Pain (scale 4-6) (headache) . ibuprofen 2020-0 Yes [id number] 600mg Take 1 U nivers 600 mg 3-02 tablet by ity of tablet 00:00: mouth [place] 00 every 8 Medical (eight) Branch hours as needed for Pain (scale 4-6) (headache) . ibuprofen 2020-0 Yes [id number] 600mg Take 1 U nivers 600 mg 3-02 tablet by ity of tablet 00:00: mouth [place] 00 every 8 Medical (eight) Branch hours as needed for Pain (scale 4-6) (headache) . ibuprofen 2020-0 Yes [id number] 600mg Take 1 U nivers 600 mg 3-02 tablet by ity of tablet 00:00: mouth [place] 00 every 8 Medical (eight) Branch hours as needed for Pain (scale 4-6) (headache) . ibuprofen 2020-0 Yes [id number] 600mg Take 1 U nivers 600 mg 3-02 tablet by ity of tablet 00:00: mouth [place] 00 every 8 Medical (eight) Branch hours as needed for Pain (scale 4-6) (headache) . ibuprofen 2020-0 Yes [id number] 600mg Take 1 U nivers 600 mg 3-02 tablet by ity of tablet 00:00: mouth [place] 00 every 8 Medical (eight) Branch hours as needed for Pain (scale 4-6) (headache) . ibuprofen 2020-0 Yes [id number] 600mg Take 1 U nivers 600 mg 3-02 tablet by ity of tablet 00:00: mouth [place] 00 every 8 Medical (eight) Branch hours as needed for Pain (scale 4-6) (headache) . ibuprofen 2020-0 Yes [id number] 600mg Take 1 U nivers 600 mg 3-02 tablet by ity of tablet 00:00: mouth [place] 00 every 8 Medical (eight) Branch hours as needed for Pain (scale 4-6) (headache) . ibuprofen 2020-0 Yes [id number] 600mg Take 1 U nivers 600 mg 3-02 tablet by ity of tablet 00:00: mouth [place] 00 every 8 Medical (eight) Branch hours as needed for Pain (scale 4-6) (headache) . ibuprofen 2020-0 Yes [id number] 600mg Take 1 U nivers 600 mg 3-02 tablet by ity of tablet 00:00: mouth [place] 00 every 8 Medical (eight) Branch hours as needed for Pain (scale 4-6) (headache) . ibuprofen 2020-0 Yes [id number] 600mg Take 1 U nivers 600 mg 3-02 tablet by ity of tablet 00:00: mouth [place] 00 every 8 Medical (eight) Branch hours as needed for Pain (scale 4-6) (headache) . ibuprofen 2020-0 Yes [id number] 600mg Take 1 U nivers 600 mg 3-02 tablet by ity of tablet 00:00: mouth [place] 00 every 8 Medical (eight) Branch hours as needed for Pain (scale 4-6) (headache) . ibuprofen 2020-0 Yes [id number] 600mg Take 1 U nivers 600 mg 3-02 tablet by ity of tablet 00:00: mouth [place] 00 every 8 Medical (eight) Branch hours as needed for Pain (scale 4-6) (headache) . ibuprofen 2020-0 Yes [id number] 600mg Take 1 U nivers 600 mg 3-02 tablet by ity of tablet 00:00: mouth [place] 00 every 8 Medical (eight) Branch hours as needed for Pain (scale 4-6) (headache) . ibuprofen 2020-0 Yes [id number] 600mg Take 1 U nivers 600 mg 3-02 tablet by ity of tablet 00:00: mouth [place] 00 every 8 Medical (eight) Branch hours as needed for Pain (scale 4-6) (headache) . ibuprofen 2020-0 Yes [id number] 600mg Take 1 U nivers 600 mg 3-02 tablet by ity of tablet 00:00: mouth [place] 00 every 8 Medical (eight) Branch hours as needed for Pain (scale 4-6) (headache) . ibuprofen 2020-0 Yes [id number] 600mg Take 1 U nivers 600 mg 3-02 tablet by ity of tablet 00:00: mouth [place] 00 every 8 Medical (eight) Branch hours as needed for Pain (scale 4-6) (headache) . ibuprofen 2020-0 Yes [id number] 600mg Take 1 U nivers 600 mg 3-02 tablet by ity of tablet 00:00: mouth [place] 00 every 8 Medical (eight) Branch hours as needed for Pain (scale 4-6) (headache) . ibuprofen 2020-0 Yes [id number] 600mg Take 1 U nivers 600 mg 3-02 tablet by ity of tablet 00:00: mouth [place] 00 every 8 Medical (eight) Branch hours as needed for Pain (scale 4-6) (headache) . ibuprofen 2020-0 Yes [id number] 600mg Take 1 U nivers 600 mg 3-02 tablet by ity of tablet 00:00: mouth [place] 00 every 8 Medical (eight) Branch hours as needed for Pain (scale 4-6) (headache) . ibuprofen 2020-0 Yes [id number] 600mg Take 1 U nivers 600 mg 3-02 tablet by ity of tablet 00:00: mouth [place] 00 every 8 Medical (eight) Branch hours as needed for Pain (scale 4-6) (headache) . ibuprofen 2020-0 Yes [id number] 600mg Take 1 U nivers 600 mg 3-02 tablet by ity of tablet 00:00: mouth [place] 00 every 8 Medical (eight) Branch hours as needed for Pain (scale 4-6) (headache) . ibuprofen 2020-0 Yes [id number] 600mg Take 1 U nivers 600 mg 3-02 tablet by ity of tablet 00:00: mouth [place] 00 every 8 Medical (eight) Branch hours as needed for Pain (scale 4-6) (headache) . ibuprofen 2020-0 Yes [id number] 600mg Take 1 U nivers 600 mg 3-02 tablet by ity of tablet 00:00: mouth [place] 00 every 8 Medical (eight) Branch hours as needed for Pain (scale 4-6) (headache) . ibuprofen 2020-0 Yes [id number] 600mg Take 1 U nivers 600 mg 3-02 tablet by ity of tablet 00:00: mouth [place] 00 every 8 Medical (eight) Branch hours as needed for Pain (scale 4-6) (headache) . ibuprofen 2020-0 Yes [id number] 600mg Take 1 U nivers 600 mg 3-02 tablet by ity of tablet 00:00: mouth [place] 00 every 8 Medical (eight) Branch hours as needed for Pain (scale 4-6) (headache) . ibuprofen 2020-0 Yes [id number] 600mg Take 1 U nivers 600 mg 3-02 tablet by ity of tablet 00:00: mouth [place] 00 every 8 Medical (eight) Branch hours as needed for Pain (scale 4-6) (headache) . ibuprofen 2020-0 2020- No [id number] 600mg Take 1 [facility] 600 mg 3-02 12-04 tablet by ity of tablet 00:00: 00:00 mouth [place] 00 :00 every 8 Medical (eight) Branch hours as needed for Pain (scale 4-6) (headache) . ibuprofen 2020-0 2020- No [id number] 600mg Take 1 [facility] 600 mg 3-02 12-04 tablet by ity of tablet 00:00: 00:00 mouth [place] 00 :00 every 8 Medical (eight) Branch hours as needed for Pain (scale 4-6) (headache) . medroxyPROG 2020-0 2020- No 150mg Univ ers ESTERone 224 02-24 ity of (DEPO-PROVE 23:00: 21:50 [place] RA) 00 :00 Medical injection Branch 150 mg medroxyPROG 2020-0 2020- No 150mg 150 mg, U nivers ESTERone 05-16 Intramuscu ity of (DEPO-PROVE 23:00: 21:50 lar, ONCE, [place] RA) 00 :00 1 dose, Medical injection Mon Branch 150 mg 05/16/19 at 1700, Routine oxybutynin 2020-0 Yes [id number] 5mg Take 1 U nivers chloride 5 2-11 tablet by ity of mg tablet 00:00: mouth (two) Medical times Branch daily. oxybutynin 2020-0 Yes [id number] 5mg Take 1 U nivers chloride 5 2-11 tablet by ity of mg tablet 00:00: mouth (two) Medical times Branch daily. oxybutynin 2020-0 Yes [id number] 5mg Take 1 U nivers chloride 5 2-11 tablet by ity of mg tablet 00:00: mouth [place] (two) Medical times Branch daily. oxybutynin 2020-0 Yes [id number] 5mg Take 1 U nivers chloride 5 2-11 tablet by ity of mg tablet 00:00: mouth [place] (two) Medical times Branch daily. oxybutynin 2020-0 Yes [id number] 5mg Take 1 U nivers chloride 5 2-11 tablet by ity of mg tablet 00:00: mouth [place] (two) Medical times Branch daily. oxybutynin 2020-0 Yes [id number] 5mg Take 1 U nivers chloride 5 2-11 tablet by ity of mg tablet 00:00: mouth [place] (two) Medical times Branch daily. oxybutynin 2020-0 Yes [id number] 5mg Take 1 U nivers chloride 5 2-11 tablet by ity of mg tablet 00:00: mouth [place] (two) Medical times Branch daily. oxybutynin 2020-0 Yes [id number] 5mg Take 1 U nivers chloride 5 2-11 tablet by ity of mg tablet 00:00: mouth [place] (two) Medical times Branch daily. oxybutynin 2020-0 Yes [id number] 5mg Take 1 U nivers chloride 5 2-11 tablet by ity of mg tablet 00:00: mouth (two) Medical times Branch daily. oxybutynin 2020-0 Yes [id number] 5mg Take 1 U nivers chloride 5 2-11 tablet by ity of mg tablet 00:00: mouth (two) Medical times Branch daily. oxybutynin 2020-0 Yes [id number] 5mg Take 1 U nivers chloride 5 2-11 tablet by ity of mg tablet 00:00: mouth [place] (two) Medical times Branch daily. oxybutynin 2020-0 Yes [id number] 5mg Take 1 U nivers chloride 5 2-11 tablet by ity of mg tablet 00:00: mouth (two) Medical times Branch daily. oxybutynin 2020-0 Yes [id number] 5mg Take 1 U nivers chloride 5 2-11 tablet by ity of mg tablet 00:00: mouth [place] (two) Medical times Branch daily. oxybutynin 2020-0 Yes [id number] 5mg Take 1 U nivers chloride 5 2-11 tablet by ity of mg tablet 00:00: mouth [place] (two) Medical times Branch daily. oxybutynin 2020-0 Yes [id number] 5mg Take 1 U nivers chloride 5 2-11 tablet by ity of mg tablet 00:00: mouth [place] (two) Medical times Branch daily. oxybutynin 2020-0 Yes [id number] 5mg Take 1 U nivers chloride 5 2-11 tablet by ity of mg tablet 00:00: mouth [place] (two) Medical times Branch daily. oxybutynin 2020-0 Yes [id number] 5mg Take 1 U nivers chloride 5 2-11 tablet by ity of mg tablet 00:00: mouth [place] (two) Medical times Branch daily. oxybutynin 2020-0 2020- No [id number] 5mg Take 1 [facility] chloride 5 2-11 07-16 tablet by ity of mg tablet 00:00: 00:00 [place] 00 :[place] (two) Medical times Branch daily. oxybutynin 2020-0 2020- No [id number] 5mg Take 1 [facility] chloride 5 2-11 07-16 tablet by ity of mg tablet 00:00: 00:00 [place] 00 :[place] (two) Medical times Branch daily. polyethylen 2019-1 Yes [id number] 1/2 cap Univers e glycol 2-31 twice ity of (MIRALAX) 00:00: daily [place] 17 Medical gram/dose Branch powder polyethylen 2019-1 Yes [id number] 1/2 cap [facility] e glycol 2-31 twice ity of (MIRALAX) 00:00: daily [place] 17 Medical gram/dose Branch powder polyethylen 2019-1 Yes [id number] 1/2 cap [facility] e glycol 2-31 twice ity of (MIRALAX) 00:00: daily [place] 17 Medical gram/dose Branch powder polyethylen 2019- Yes [id number] 1/2 cap [facility] e glycol 2-31 twice ity of (MIRALAX) 00:00: daily [place] 17 Medical gram/dose Branch powder polyethylen 2019- Yes [id number] 1/2 cap [facility] e glycol 2-31 twice ity of (MIRALAX) 00:00: daily [place] 17 Medical gram/dose Branch powder polyethylen 2019-1 Yes [id number] 1/2 cap [facility] e glycol 2-31 twice ity of (MIRALAX) 00:00: daily [place] 17 Medical gram/dose Branch powder polyethylen 2019- Yes [id number] 1/2 cap [facility] e glycol 2-31 twice ity of (MIRALAX) 00:00: daily [place] 17 Medical gram/dose Branch powder polyethylen 2019-1 Yes [id number] 1/2 cap Univers e glycol 2-31 twice ity of (MIRALAX) 00:00: daily [place] 17 Medical gram/dose Branch powder polyethylen 2019-1 Yes [id number] 1/2 cap Univers e glycol 2-31 twice ity of (MIRALAX) 00:00: daily [place] 17 Medical gram/dose Branch powder polyethylen 2019- Yes [id number] 1/2 cap [facility] e glycol 2-31 twice ity of (MIRALAX) 00:00: daily [place] 17 Medical gram/dose Branch powder polyethylen 2019-1 Yes [id number] 1/2 cap Univers e glycol 2-31 twice ity of (MIRALAX) 00:00: daily [place] 17 Medical gram/dose Branch powder polyethylen 2019-1 Yes [id number] 1/2 cap Univers e glycol 2-31 twice ity of (MIRALAX) 00:00: daily [place] 17 Medical gram/dose Branch powder polyethylen 2019- Yes [id number] 1/2 cap Univers e glycol 2-31 twice ity of (MIRALAX) 00:00: daily [place] 17 Medical gram/dose Branch powder polyethylen 2019- Yes [id number] 1/2 cap [facility] e glycol 2-31 twice ity of (MIRALAX) 00:00: daily [place] 17 Medical gram/dose Branch powder polyethylen 2019- Yes [id number] 1/2 cap Univers e glycol 2-31 twice ity of (MIRALAX) 00:00: daily [place] 17 Medical gram/dose Branch powder polyethylen 2019- Yes [id number] 1/2 cap [facility] e glycol 2-31 twice ity of (MIRALAX) 00:00: daily [place] 17 Medical gram/dose Branch powder polyethylen 2019- Yes [id number] 1/2 cap [facility] e glycol 2-31 twice ity of (MIRALAX) 00:00: daily [place] 17 Medical gram/dose Branch powder polyethylen 2019- Yes [id number] 1/2 cap [facility] e glycol 2-31 twice ity of (MIRALAX) 00:00: daily [place] 17 Medical gram/dose Branch powder polyethylen 2019- Yes [id number] 1/2 cap [facility] e glycol 2-31 twice ity of (MIRALAX) 00:00: daily [place] 17 Medical gram/dose Branch powder polyethylen 2019- Yes [id number] 1/2 cap [facility] e glycol 2-31 twice ity of (MIRALAX) 00:00: daily [place] 17 Medical gram/dose Branch powder polyethylen 2019- Yes [id number] 1/2 cap [facility] e glycol 2-31 twice ity of (MIRALAX) 00:00: daily [place] 17 Medical gram/dose Branch powder polyethylen 2019- Yes [id number] 1/2 cap [facility] e glycol 2-31 twice ity of (MIRALAX) 00:00: daily [place] 17 Medical gram/dose Branch powder polyethylen 2019- Yes [id number] 1/2 cap [facility] e glycol 2-31 twice ity of (MIRALAX) 00:00: daily [place] 17 Medical gram/dose Branch powder polyethylen 2019- Yes [id number] 1/2 cap [facility] e glycol 2-31 twice ity of (MIRALAX) 00:00: daily [place] 17 Medical gram/dose Branch powder polyethylen 2019- Yes [id number] 1/2 cap [facility] e glycol 2-31 twice ity of (MIRALAX) 00:00: daily [place] 17 Medical gram/dose Branch powder polyethylen 2019- Yes [id number] 1/2 cap [facility] e glycol 2-31 twice ity of (MIRALAX) 00:00: daily [place] 17 Medical gram/dose Branch powder polyethylen 2019- Yes [id number] 1/2 cap [facility] e glycol 2-31 twice ity of (MIRALAX) 00:00: daily [place] 17 Medical gram/dose Branch powder polyethylen 2019- Yes [id number] 1/2 cap [facility] e glycol 2-31 twice ity of (MIRALAX) 00:00: daily [place] 17 Medical gram/dose Branch powder polyethylen 2019- Yes [id number] 1/2 cap [facility] e glycol 2-31 twice ity of (MIRALAX) 00:00: daily [place] 17 Medical gram/dose Branch powder polyethylen 2019- Yes [id number] 1/2 cap [facility] e glycol 2-31 twice ity of (MIRALAX) 00:00: daily [place] 17 Medical gram/dose Branch powder polyethylen 2019- Yes [id number] 1/2 cap [facility] e glycol 2-31 twice ity of (MIRALAX) 00:00: daily [place] 17 Medical gram/dose Branch powder polyethylen 2019- Yes [id number] 1/2 cap [facility] e glycol 2-31 twice ity of (MIRALAX) 00:00: daily [place] 17 Medical gram/dose Branch powder polyethylen 2019- Yes [id number] 1/2 cap [facility] e glycol 2-31 twice ity of (MIRALAX) 00:00: daily [place] 17 Medical gram/dose Branch powder polyethylen 2019- Yes [id number] 1/2 cap [facility] e glycol 2-31 twice ity of (MIRALAX) 00:00: daily [place] 17 Medical gram/dose Branch powder polyethylen 2019- Yes [id number] 1/2 cap [facility] e glycol 2-31 twice ity of (MIRALAX) 00:00: daily [place] 17 Medical gram/dose Branch powder polyethylen 2019- Yes [id number] 1/2 cap [facility] e glycol 2-31 twice ity of (MIRALAX) 00:00: daily [place] 17 Medical gram/dose Branch powder polyethylen 2019- Yes [id number] 1/2 cap [facility] e glycol 2-31 twice ity of (MIRALAX) 00:00: daily [place] 17 Medical gram/dose Branch powder polyethylen 2018-03 Yes [id number] 1/2 cap [facility] e glycol 2-31 twice ity of (MIRALAX) 00:00: daily [place] 17 Medical gram/dose Branch powder polyethylen 2018-03 Yes [id number] 1/2 cap [facility] e glycol 2-31 twice ity of (MIRALAX) 00:00: daily [place] Medical gram/dose Branch powder polyethylen 2018- Yes [id number] 1/2 cap [facility] e glycol 2- twice ity of (MIRALAX) 00:00: daily [place] Medical gram/dose Branch powder polyethylen 2018-03- No [id number] 1/2 cap [facility] e glycol 2-04-02 twice ity of (MIRALAX) 00:00: 00:00 daily [place] 17 00 :00 Medical gram/dose Branch powder polyethylen 2018-03- No [id number] 1/2 cap [facility] e glycol 2-04-02 twice ity of (MIRALAX) 00:00: 00:00 daily [place] 17 00 :00 Medical gram/dose Branch powder polyethylen 2018-2020- No [id number] 1/2 cap [facility] e glycol 2-04-02 twice ity of (MIRALAX) 00:00: 00:00 daily [place] 17 00 :00 Medical gram/dose Branch powder polyethylen 2018-03- No [id number] 1/2 cap Univers e glycol 2-04-02 twice ity of (MIRALAX) 00:00: 00:00 daily [place] 17 00 :00 Medical gram/dose Branch powder polyethylen 2018-2020- No [id number] 1/2 cap [facility] e glycol 2-04-02 twice ity of (MIRALAX) 00:00: 00:00 daily [place] 17 00 :00 Medical gram/dose Branch powder polyethylen 2018-03- No [id number] 1/2 cap [facility] e glycol 2-22 04-11 twice ity of (MIRALAX) 00:00: 00:00 daily [place] 00 :00 Medical gram/dose Branch powder medroxyPROG 2019- No [id number] 150mg [facility] ESTERone 11-11 ity of (DEPO-PROVE 15:00: 13:54 [place] RA) 00 :00 Medical injection Branch 150 mg medroxyPROG 2019- No [id number] 150mg 150 mg, [facility] ESTERone 11-11 Intramuscu ity of (DEPO-PROVE 15:00: 13:54 lar, ONCE, [place] RA) 00 :00 1 dose, Medical injection [place] Branch 150 mg 11/11/18 at 1000, Routine medroxyPROG 2019- No [id number] 150mg [facility] ESTERone 11-11 ity of (DEPO-PROVE 15:00: 13:54 [place] RA) 00 :00 Medical injection Branch 150 mg medroxyPROG 2019- No [id number] 150mg 150 mg, [facility] ESTERone 11-11 Intramuscu ity of (DEPO-PROVE 15:00: 13:54 lar, ONCE, [place] RA) 00 :00 1 dose, Medical injection [place] Branch 150 mg 11/11/18 at 1000, Routine zonisamide Yes [id number] 200mg Take 2 [facility] 100 mg 4-12 capsules ity of capsule 00:00: by mouth [place] daily. Medical Branch zonisamide Yes [id number] 200mg Take 2 [facility] 100 mg 4-12 capsules ity of capsule 00:00: by mouth [place] daily. Medical Branch zonisamide Yes [id number] 200mg Take 2 [facility] 100 mg 4-12 capsules ity of capsule 00:00: by mouth [place] daily. Medical Branch zonisamide Yes [id number] 200mg Take 2 [facility] 100 mg 4-12 capsules ity of capsule 00:00: by mouth [place] 00 daily. Medical Branch zonisamide Yes [id number] 200mg Take 2 [facility] 100 mg 4-12 capsules ity of capsule 00:00: by mouth [place] 00 daily. Medical Branch zonisamide Yes [id number] 200mg Take 2 [facility] 100 mg 4-12 capsules ity of capsule 00:00: by mouth [place] 00 daily. Medical Branch zonisamide 2019-0 Yes [id number] 200mg Take 2 [facility] 100 mg 4-12 capsules ity of capsule 00:00: by mouth [place] 00 daily. Medical Branch zonisamide 2019-0 Yes [id number] 200mg Take 2 [facility] 100 mg 4-12 capsules ity of capsule 00:00: by mouth [place] 00 daily. Medical Branch zonisamide 2018-0 Yes [id number] 200mg Take 2 [facility] 100 mg 4-12 capsules ity of capsule 00:00: by mouth [place] 00 daily. Medical Branch zonisamide 2018-0 Yes [id number] 200mg Take 2 [facility] 100 mg 4-12 capsules ity of capsule 00:00: by mouth [place] 00 daily. Medical Branch zonisamide 2018-0 Yes [id number] 200mg Take 2 [facility] 100 mg 4-12 capsules ity of capsule 00:00: by mouth [place] 00 daily. Medical Branch zonisamide 2018-0 Yes [id number] 200mg Take 2 [facility] 100 mg 4-12 capsules ity of capsule 00:00: by mouth [place] 00 daily. Medical Branch zonisamide 2018-0 Yes [id number] 200mg Take 2 [facility] 100 mg 4-12 capsules ity of capsule 00:00: by mouth [place] 00 daily. Medical Branch zonisamide 2018-0 Yes [id number] 200mg Take 2 [facility] 100 mg 4-12 capsules ity of capsule 00:00: by mouth [place] 00 daily. Medical Branch zonisamide 2018-0 Yes [id number] 200mg Take 2 [facility] 100 mg 4-12 capsules ity of capsule 00:00: by mouth [place] 00 daily. Medical Branch zonisamide 0 2020- No [id number] 200mg Take 2 [facility] 100 mg 4-12 02-11 capsules ity of capsule 00:00: 00:00 by mouth [place] 00 :00 daily. Medical Branch zonisamide 2018-0 2020- No [id number] 200mg Take 2 [facility] 100 mg 4-12 [...] 00 :36 Medical injection Branch 150 mg Vital Signs Vital Name Observation Time Observation Value Comments Source Systolic blood 2022-11-13 14:04:00 134 mm[Hg] Univer sity of pressure [facility] Diastolic blood 2022-11-13 14:04:00 76 mm[Hg] Unive rsity of pressure [facility] Heart rate 2022-11-13 14:04:00 76 /min [facility] Body temperature 2022-11-13 14:04:00 37.22 [facility] Univ ersity [facility] Body height 2022-11-13 14:04:00 160 cm [facility] Body weight 2022-11-13 14:04:00 82.283 kg [facility] [place] [facility] BMI 2022-11-13 14:04:00 32.13 kg/m2 [facility] [place] [facility] Systolic blood 2022-10-28 14:04:00 123 mm[Hg] Univer sity of pressure [place] [facility] Diastolic blood 2022-10-28 14:04:00 83 mm[Hg] Unive rsity of pressure [place] [facility] Heart rate 2022-10-28 14:04:00 68 /min [facility] [place] [facility] Body temperature 2022-10-28 14:04:00 36.94 [facility] ers[facility] [place] [facility] Respiratory rate 2022-10-28 14:04:00 18 /min [facility] ersity of [place] [facility] Body height 2022-10-28 14:04:00 160 cm [facility] [place] [facility] Body weight 2022-10-28 14:04:00 82.101 kg [facility] [place] [facility] BMI 2022-10-28 14:04:00 32.06 kg/m2 [facility] [place] [facility] Systolic blood 2022-08-11 16:19:00 110 mm[Hg] Univer sity of pressure [facility] Diastolic blood 2022-08-11 16:19:00 77 mm[Hg] Unive rsity of pressure [facility] Heart rate 2022-08-11 16:19:00 89 /min [facility] [place] [facility] Body temperature 2022-08-11 16:19:00 37.33 [place] [facility] ersity of [facility] Respiratory rate 2022-08-11 16:19:00 20 /min Univ ersity of [facility] Body height 2022-08-11 16:19:00 160 cm [facility] [place] [facility] Body weight 2022-08-11 16:19:00 78.075 kg [facility] [place] [facility] BMI 2022-08-11 16:19:00 30.49 kg/m2 Universi ty of [facility] Oxygen saturation in 2022-08-11 16:19:00 98 /min [facility] Arterial blood by [facility] [place] [facility] Pulse oximetry Branch Systolic blood 2022-05-27 20:21:00 121 mm[Hg] Univer sity of pressure [place] [facility] Diastolic blood 2022-05-27 20:21:00 69 mm[Hg] Unive rsity of pressure [place] [facility] Heart rate 2022-05-27 20:21:00 72 /min [facility] [place] [facility] Body temperature 2022-05-27 20:21:00 37.11 [facility] ers[facility] [place] [facility] Respiratory rate 2022-05-27 20:21:00 17 /min Univ ersity of [place] [facility] Body height 2022-05-27 20:21:00 157.5 cm [facility] [place] [facility] Body weight 2022-05-27 20:21:00 84.55 kg [facility] [place] [facility] BMI 2022-05-27 20:21:00 34.09 kg/m2 [facility] [place] [facility] Systolic blood 2022-02-05 19:09:00 137 mm[Hg] Univer sity of pressure [place] [facility] Diastolic blood 2022-02-05 19:09:00 79 mm[Hg] Unive rsity of pressure [place] [facility] Heart rate 2022-02-05 19:09:00 94 /min [facility] [place] [facility] Body temperature 2022-02-05 19:09:00 37.06 [facility] ers[facility] [place] [facility] Respiratory rate 2022-02-05 19:09:00 18 /min Univ ersity of [place] [facility] Body height 2022-02-05 19:09:00 157.5 cm [facility] [place] [facility] Body weight 2022-02-05 19:09:00 84.732 kg [facility] [place] [facility] BMI 2022-02-05 19:09:00 34.17 kg/m2 [facility] [place] [facility] Systolic blood 2022-01-31 15:02:00 122 mm[Hg] Univer sity of pressure [place] [facility] Diastolic blood 2022-01-31 15:02:00 77 mm[Hg] Unive rsity of pressure [place] [facility] Heart rate 2022-01-31 15:02:00 67 /min [facility] Body temperature 2022-01-31 15:02:00 37.11 Cara [facility] Body height 2022-01-31 15:02:00 157.5 cm [facility] Body weight 2022-01-31 15:02:00 82.555 kg [facility] BMI 2022-01-31 15:02:00 33.29 kg/m2 [facility] of [facility] Systolic blood 2022-01-02 14:12:00 109 mm[Hg] Univer sity of pressure [facility] Diastolic blood 2022-01-02 14:12:00 67 mm[Hg] Unive rsity of pressure [facility] Heart rate 2022-01-02 14:12:00 58 /min Universi [facility] of [facility] Body temperature 2022-01-02 14:12:00 37.06 Cara Univ [facility] Respiratory rate 2022-01-02 14:12:00 18 /min Univ ersity of [facility] Body height 2022-01-02 14:12:00 157.5 cm Universi ty of [facility] Body weight 2022-01-02 14:12:00 80.74 kg Universi ty of [facility] BMI 2022-01-02 14:12:00 32.56 kg/m2 Universi [facility] of [facility] Systolic blood 2021-01-06 02:00:00 149 mm[Hg] Univer sity of pressure [facility] Diastolic blood 2021-01-06 02:00:00 97 mm[Hg] Unive rsity of pressure [facility] Heart rate 2021-01-06 02:00:00 101 /min Universi ty of [facility] Respiratory rate 2021-01-06 02:00:00 17 /min Univ ersity of [facility] Oxygen saturation in 2021-01-06 02:00:00 100 /min University of Arterial blood by [facility] Pulse oximetry Branch Body temperature 2021-01-06 01:46:00 36.06 Cara Univ ersity of [facility] Body height 2021-01-06 01:46:00 157.5 cm Universi ty of [facility] Body weight 2021-01-06 01:46:00 81.647 kg Universi [facility] of [facility] BMI 2021-01-06 01:46:00 32.92 kg/m2 [facility] of [facility] Body mass index 2021-01-06 01:46:00 96.57 % Unive rsity of (BMI) [Percentile] [facility] ical Per age and sex Branch Systolic blood 2020-04-02 17:35:00 116 mm[Hg] Univer sity of pressure [facility] Diastolic blood 2020-04-02 17:35:00 72 mm[Hg] Unive rsity of pressure [facility] Heart rate 2020-04-02 16:53:00 73 /min [facility] Body temperature 2020-04-02 16:53:00 36.44 Cara [facility] Respiratory rate 2020-04-02 16:53:00 18 /min [facility] Body height 2020-04-02 16:53:00 159 cm [facility] Body weight 2020-04-02 16:53:00 82.101 kg [facility] BMI 2020-04-02 16:53:00 32.48 kg/m2 [facility] Oxygen saturation in 2020-04-02 16:53:00 98 /min University of Arterial blood by [employer] milagros Pulse oximetry Branch Systolic blood 2020-04-02 17:35:00 116 mm[Hg] Univer sity of pressure [facility] Diastolic blood 2020-04-02 17:35:00 72 mm[Hg] Unive rsity of pressure [facility] Heart rate 2020-04-02 16:53:00 73 /min [facility] Body temperature 2020-04-02 16:53:00 36.44 Cara [facility] Respiratory rate 2020-04-02 16:53:00 18 /min [facility] Body height 2020-04-02 16:53:00 159 cm [facility] Body weight 2020-04-02 16:53:00 82.101 kg [facility] BMI 2020-04-02 16:53:00 32.48 kg/m2 [facility] Oxygen saturation in 2020-04-02 16:53:00 98 /min University of Arterial blood by [employer] [facility]ros Pulse oximetry Branch Systolic blood 2020-02-24 19:17:00 121 mm[Hg] Univer sity of pressure [facility] Diastolic blood 2020-02-24 19:17:00 77 mm[Hg] Unive rsity of pressure [facility] Heart rate 2020-02-24 19:16:00 84 /min [facility] Body temperature 2020-02-24 19:16:00 36.56 Cara Univ [facility]ity [facility] Respiratory rate 2020-02-24 19:16:00 18 /min [facility] Body weight 2020-02-24 19:16:00 83.598 kg Universi ty of [facility] Oxygen saturation in 2020-02-24 19:16:00 100 /min University of Arterial blood by [facility] Pulse oximetry Branch Systolic blood 2020-01-30 21:13:00 123 mm[Hg] Univer [facility]ity of pressure [facility] [place] [facility] Diastolic blood 2020-01-30 21:13:00 70 mm[Hg] Unive rsity of pressure [facility] Heart rate 2020-01-30 21:13:00 83 /min Universi ty of [facility] Body temperature 2020-01-30 21:13:00 37.11 Cara Univ ersity of [facility] Respiratory rate 2020-01-30 21:13:00 18 /min Univ ersity of [facility] Body height 2020-01-30 21:13:00 157.5 cm [facility] Body weight 2020-01-30 21:13:00 85.276 kg [facility] BMI 2020-01-30 21:13:00 34.39 kg/m2 [facility]i [facility] of [facility] Systolic blood 2020-01-10 20:41:00 129 mm[Hg] Univer sity of pressure [facility] Diastolic blood 2020-01-10 20:41:00 72 mm[Hg] Unive rsity of pressure [facility] Heart rate 2020-01-10 20:41:00 98 /min [facility] Body temperature 2020-01-10 20:41:00 36.72 Cara [facility] Respiratory rate 2020-01-10 20:41:00 18 /min Univ ersity of [facility] Body height 2020-01-10 20:41:00 157.5 cm [facility] [place] [facility] Body weight 2020-01-10 20:41:00 85.276 kg [facility] BMI 2020-01-10 20:41:00 34.39 kg/m2 [facility]i [facility] of [facility] Body temperature 2019-10-12 19:39:00 35.72 Cara Univ ersity of [facility] Body height 2019-10-12 19:39:00 159 cm [facility] Body weight 2019-10-12 19:39:00 82.6 kg [facility] BMI 2019-10-12 19:39:00 32.67 kg/m2 [facility] Systolic blood 2019-10-07 18:10:00 121 mm[Hg] Univer sity of pressure [facility] Diastolic blood 2019-10-07 18:10:00 79 mm[Hg] Unive rsity of pressure [facility] Heart rate 2019-10-07 18:10:00 77 /min Universi ty of [facility] Body temperature 2019-10-07 18:10:00 36.89 Cara Univ ersity of [facility] Respiratory rate 2019-10-07 18:10:00 18 /min Univ ersity of [facility] Body height 2019-10-07 18:10:00 157.5 cm Universi ty of [facility] Body weight 2019-10-07 18:10:00 81.647 kg [facility] BMI 2019-10-07 18:10:00 32.92 kg/m2 [facility] Systolic blood 2019-10-06 20:18:00 123 mm[Hg] Univer sity of pressure [facility] Diastolic blood 2019-10-06 20:18:00 86 mm[Hg] Unive rsity of pressure [facility] Heart rate 2019-10-06 20:18:00 96 /min Universi ty of [facility] Body temperature 2019-10-06 20:18:00 36.78 Cara Univ [facility] of [facility] Respiratory rate 2019-10-06 20:18:00 16 /min Univ ersity of [facility] Body height 2019-10-06 20:18:00 157.5 cm Universi ty of [facility] Body weight 2019-10-06 20:18:00 80.786 kg [facility] BMI 2019-10-06 20:18:00 32.57 kg/m2 Universi ty of [facility] Oxygen saturation in 2019-10-06 20:18:00 98 /min University of Arterial blood by [facility] Pulse oximetry Branch Systolic blood 2019-08-04 18:52:00 129 mm[Hg] Univer sity of pressure [facility] Diastolic blood 2019-08-04 18:52:00 78 mm[Hg] Unive rsity of pressure [facility] Heart rate 2019-08-04 18:52:00 86 /min Universi ty of [facility] Body temperature 2019-08-04 18:52:00 37.22 Cara Univ ersity of [facility] Respiratory rate 2019-08-04 18:52:00 18 /min Univ ersity of [facility] Body height 2019-08-04 18:52:00 157.5 cm [facility] Body weight 2019-08-04 18:52:00 84.369 kg [facility] BMI 2019-08-04 18:52:00 34.02 kg/m2 Universi ty of [facility] Systolic blood 2019-05-23 21:28:00 121 mm[Hg] Univer sity of pressure [facility] Diastolic blood 2019-05-23 21:28:00 77 mm[Hg] Unive rsity of pressure [facility] Heart rate 2019-05-23 21:28:00 80 /min [facility] [place] [facility] Body temperature 2019-05-23 21:28:00 37.39 Cara Univ [facility] of [facility] Respiratory rate 2019-05-23 21:28:00 18 /min Univ ersity of [facility] Body height 2019-05-23 21:28:00 158.5 cm [facility] Body weight 2019-05-23 21:28:00 85.095 kg [facility] BMI 2019-05-23 21:28:00 33.87 kg/m2 Universi ty of [facility] Oxygen saturation in 2019-05-23 21:28:00 100 /min University Arterial blood by [facility] Pulse oximetry Branch Systolic blood 2019-05-16 21:51:00 123 mm[Hg] Univer sity of pressure [facility] Diastolic blood 2019-05-16 21:51:00 73 mm[Hg] Unive rsity of pressure [facility] Heart rate 2019-05-16 21:51:00 72 /min Universi ty of [facility] Body temperature 2019-05-16 21:51:00 36.78 Cara Univ ersity of [facility] Respiratory rate 2019-05-16 21:51:00 18 /min [facility] Body height 2019-05-16 21:51:00 157.5 cm [facility] Body weight 2019-05-16 21:51:00 85.276 kg [facility] BMI 2019-05-16 21:51:00 34.39 kg/m2 [facility] Body temperature 2019-05-03 20:09:00 36.83 Cara [facility] Body height 2019-05-03 20:09:00 157.5 cm [facility] Body weight 2019-05-03 20:09:00 82.2 kg [facility] BMI 2019-05-03 20:09:00 33.14 kg/m2 [facility] Body temperature 2019-03-22 21:03:00 37 Cara [facility] Body weight 2019-03-22 21:03:00 83.4 kg [facility] Systolic blood 2018-11-12 13:21:00 120 mm[Hg] Univer [facility]ity of [facility] Diastolic blood 2018-11-12 13:21:00 78 mm[Hg] Unive rsity of pressure [facility] Heart rate 2018-11-12 13:21:00 72 /min [facility] Body temperature 2018-11-12 13:21:00 37.83 Cara [facility] Respiratory rate 2018-11-12 13:21:00 18 /min [facility] Body weight 2018-11-12 13:21:00 76.023 kg [facility] BMI 2018-11-12 13:21:00 29.69 kg/m2 [facility] Systolic blood 2018-11-11 13:42:00 123 mm[Hg] Univer sity of pressure [facility] Diastolic blood 2018-11-11 13:42:00 81 mm[Hg] Unive rsity of pressure [facility] Heart rate 2018-11-11 13:42:00 64 /min [facility] Body temperature 2018-11-11 13:42:00 36.94 Cara [facility] Respiratory rate 2018-11-11 13:42:00 18 /min [facility] Body height 2018-11-11 13:42:00 160 cm [facility] Body weight 2018-11-11 13:42:00 75.297 kg Universi ty [facility] BMI 2018-11-11 13:42:00 29.41 kg/m2 Universi ty [facility] Systolic blood 2018-10-07 20:01:00 123 mm[Hg] Univer sity of pressure [facility] Diastolic blood 2018-10-07 20:01:00 80 mm[facility]Hg] [facility] Heart rate 2018-10-07 20:01:00 97 /min [facility] Body temperature 2018-10-07 20:01:00 36.56 Cara [facility] Respiratory rate 2018-10-07 20:01:00 16 /min [facility] Body height 2018-10-07 20:01:00 158.7 cm Universi [facility] Body weight 2018-10-07 20:01:00 74.844 kg [facility] BMI 2018-10-07 20:01:00 29.72 kg/m2 [facility] Oxygen saturation in 2018-10-07 20:01:00 99 /min [facility] Arterial blood by [facility] Pulse oximetry Branch Procedures Procedure Date / Time Performing Source Performed Clinician BI ULTRASOUND BREAST COMPLETE 2022-11-12 [facility] [place] RIGHT 16:39:22 [facility] POCT MOLECULAR STREP 2022-08-11 Unknown, Attending [facility] 16:25:00 [facility] POCT URINALYSIS W/O SPECIFIC 2022-05-27 Rolan Casarez [facility] [place] GRA[facility] 20:36:00 [facility] PATIENT FINANCIAL POLICY 2022-05-27 Doctor Unassigned, [facility] 20:07:26 [facility] BI ULTRASOUND BREAST COMPLETE 2022-02-21 [facility] [place] BILATERAL 19:23:00 Medical Branch US PELVIS COMPLETE WITH 2022-02-21 Rolan Casarez [facility] TRANSVAGINAL 17:55:34 Medical Branch DISCLOSURE AND CONSENT, 2022-01-31 Doctor Unassigned, [facility] MEDICAL AND SURGICAL 06:01:00 [facility] PROCEDURES POCT TEST 2022-01-31 [place] [facility] [place] 00:00:00 [facility] Dwarf ASSIGNMENT OF BENEFITS 2022-01-02 Doctor Unashannan, [facility] 14:07:23 [facility] POCT TEST 2021-01-[address] [facility] 02:44:00 [facility] URINALYSIS 2021-01-06 Roma Adame [facility] ex 02:34:00 [facility] URINE DRUG (IMMUNOASSAY) - 2021-01-06 Roma Adame [facility] COMPREHENSIVE DRUG SCREEN W/O 02:34:00 Me dical Dwarf REFLEX LACTIC ACID WHOLE BLOOD 2021-01-06 Roma Adame [facility] 02:23:00 [facility] COMP. METABOLIC PANEL (60411) 2021-01-06 Roma Adame [facility] 02:03:00 [facility] ETHANOL 2021-01-[address] [facility] 02:03:00 [facility] CBC WITH DIFF 2021-01-[address] [facility] 02:03:00 [facility] MENINGOCOCCAL B VACCINE, OMV, 2020-04-16 Karen Tamayo [facility] 2 DOSE, IM 16:43:42 [facility] POCT RAPID STREP SCREEN FOR 2020-02-24 Karen Tamayo [facility] GROUP A 19:24:00 Medical Branch EXTERNAL PROVIDER RECORDS 2019-10-13 Doctor Unassrenu, [facility] 05:01:00 [facility] PEDI ELECTROENCEPHALOGRAM 2019-10-12 Dalia Arreguin [facility] 00:00:00 Medical Branch DISCLOSURE AND CONSENT, 2019-10-07 Doctor Aliza, [facility] MEDICAL AND SURGICAL 05:01:00 [facility] PROCEDURES AUTHORIZATION TO RELEASE PHI 2019-10-06 Doctor Aliza, [facility] TO [facility] 05:01:00 [facility] BI ULTRASOUND BREAST LIMITED 2019-08-16 Alexandria Whitmore [facility] LEFT 13:29:57 Medical Branch CONSENT FOR CONTRACEPTION 2019-08-04 Doctor Unassigned, [facility] 05:01:00 [facility] POCT TEST 2019-08-04 Alexandria Whitmore [place] [facility] [place] 00:00:00 [facility] POCT URINALYSIS W/O SPECIFIC 2019-08-04 Alexandria Whitmore [facility] GRAVITY 00:00:00 Medical Branch AGREEMENTS AUTHORIZATIONS AND 2019-06-16 Doctor Keliigned, [facility] IRREVOCABLE ASSIGNMENTS (FORM 05:01:00 [facility] 2000) CONSENT/REFUSAL FOR DIAGNOSIS 2019-05-03 Doctor Unassigned, [facility] AND TREATMENT 19:11:33 [facility] URINE CULTURE 2019-03-22 [facility] [place] 21:53:00 Medical Branch CONSENT FOR DEPO-PROVERA 2018-11-11 Doctor Unassigned, [facility] 05:01:00 [facility] MENINGOCOCCAL B 2018-10-07 Karen Tamayo [facility] exas VACCINE(TRUMENBA) 2 OR 3 DOSE 20:59:48 [facility] SERIES, IM MENACTRA (MCV4-D) VACCINE 2018-10-07 Karen Tamayo [facility] 20:59:21 Medical Branch Encounters Start End Encounter Admission Attending Care Care Encounter Source Date/Time Date/Time Type Type Clinicians Facility Department ID 2021-01-22 Emergency [facility] [id number] Univers 07:20:19 ity [facility] 2023-01-05 2023-01-05 Outpatient Suly CASAREZ [facility] [id number] Univers 08:30:00 08:30:00 ROLAN ity [facility] 2022-12-02 2022-12-02 Outpatient MILAN PATEL [facility] [id number] Univers 10:00:00 12:30:57 ity [facility] 2022-12-02 2022-12-02 Office Leslie Carreon [facility] [id number] Univers 10:00:00 12:30:57 Visit Milan Boswell [facility] [id number] ity of CANCER [id number] [facility] - [id number] Med [address] 2022-12-01 2022-12-01 [facility] [id number] Univers 00:00:00 00:00:00 [facility] [id number] ity of CANCER [id number] [facility] [place] - [id number] [address] 2022-11-26 2022-11-26 Telephone [facility] [id number] Univers 00:00:00 00:00:00 Corrine J SPECIALTY [id number] ity of BAY [id number] [facility] [place] [id number] [address] 2022-11-18 2022-11-18 Outpatient R HERMELINDO [facility] [id number] Univers 09:00:00 14:20:05 ROLAN [facility] 2022-11-18 2022-11-18 Office Lauri Leslie [facility] [id number] Univers 09:00:00 14:20:05 Visit Rolan Casarez [facility] [id number] ity of CANCER [id number] [facility] [place] - [id number] [address] 2022-11-18 2022-11-18 Website Designer Lab, [facility] [id number] [facility] 10:15:00 10:30:00 Visit Rolan Casarez SPECIALTY [id number] ity of CARE [id number] [facility] [place] AT [id number] De una [employer] [address] [place] [address] 2022-11-13 2022-11-13 Outpatient R ALEXANDRIA WHITMORE [facility] [id number] Univers 09:00:00 09:31:00 ity [facility] 2022-11-13 2022-11-13 Office Alexandria Whitmore [facility] [id number] Univers 09:00:00 09:31:00 Visit Skyler RIVERA [id number] i ty of [id number] [id number] De dical NAL [address] [place] [address] 2022-11-13 2022-11-13 Letter Alexandria Whitmore [facility] [id number] Univers 00:00:00 00:00:00 (Out) Skyler RIVERA [id number] i ty of [facility] [id number] [id number] De dic[address] 2022-11-12 2022-11-12 [facility] [id number] [facility] 10:15:25 23:59:00 ROLAN antoine [facility] 2022-11-12 2022-11-12 [facility] Hermelindo [facility] [id number] [facility] 10:15:25 23:59:00 Encounter Rolan [facility] [id number] ity of [facility] [id number] [place] [id number] [address] 2022-10-28 2022-10-28 [facility] [id number] [facility] 09:30:00 09:59:16 [facility] 2022-10-28 2022-10-28 Office [facility] [id number] [facility] 09:30:00 09:59:16 Visit Rolan RIVERA [id number] i ty of [facility] [id number] [place] [id number] De dic[address] 2022-10-28 2022-10-28 Letter [facility] [id number] Univers 00:00:00 00:00:00 (Out) Rolan RIVERA [id number] i ty of [facility] [id number] [place] [id number] De dical NAL [address] [place] [address] 2022-08-11 2022-08-11 Outpatient [facility] [id number] Univers 11:00:00 11:47:20 MANNY antoine [facility] 2022-08-11 2022-08-11 Urgent aMnny Carmen [facility] [id number] Univers 11:00:00 11:47:20 Care Unknown, Attending HEALTH [id number] ity of ROBERT [id number] Tawanda as NAYANA?BLEA [id number] [facility] [address] MEDICAL OFFICE BUILDING 2022-06-16 2022-06-16 Telephone Hermelindo [facility] [id number] Univers 00:00:00 00:00:00 Rolan NICOLE [id number] i ty [id number] [id number] [facility] 2022-06-13 2022-06-13 Outpatient [facility] [id number] Univers 14:05:25 23:59:00 [facility] 2022-06-13 2022-06-13 [facility] Hermelindo [facility] ..840.114 [id number] Univers 14:05:25 23:59:00 Encounter Rolan [facility] [id number] ity of [facility] [id number] [place] [id number] [facility] [address] [place] [address] 2022-06-06 2022-06-06 Outpatient R HERMELINDO [facility] [id number] Univers 00:00:00 00:00:00 [facility] 2022-05-27 2022-05-27 Outpatient Suly CASAREZ [facility] [id number] Univers 14:00:00 15:06:27 ROLAN [facility] 2022-05-27 2022-05-27 Office [facility]incess[facility] [id number] Univers 14:00:00 15:06:27 Visit Rolanjen RIVERA [id number] i ty of [facility] [place] [phone] [facility] 134 [facility] 2022-05-27 2022-05-27 Orders Doctor CAPUTO 1.2.840.114 [id number] Univers 00:00:00 00:00:00 Only Unassigned, JACQUE 350.1.13.10 ity of [place] [facility] 4.2.7.2.686 Tawanda as [phone] [facility] [address] 2022-02-21 2022-02-21 [facility], [facility] 1.2.840.114 [id number] Univers 12:00:22 23:59:00 Encounter Rolan Y HEALTH 350.1.13.10 ity of [facility] [place].2.7.2.[place] [phone] [facility] [address] 2022-02-21 2022-02-21 [facility] [id number] Univers 10:48:03 11:59:00 ROLAN ity of [facility] 2022-02-21 2022-02-21 [facility] 1.2.840.114 [id number] Univers 10:48:03 11:59:00 Encounter [facility] HEALTH 350.1.13.10 ity of [facility] [place].2.7.2.[place] [phone] [facility] [address] 2022-02-05 2022-02-05 Outpatient [facility] [id number] Univers 13:00:00 13:36:35 [place] antoine of [facility] 2022-02-05 2022-02-05 [facility] 1.2.264.228 [id number] Univers 13:00:00 13:36:35 Visit [place] SAPP 350.1.13.10 i ty of [place] [phone] [facility] [address] 2022-02-05 2022-02-05 [facility]phone [facility] 1.2.552.047 [id number] Univers 00:00:00 00:00:00 [place] RIVERA 350.1.13.10 ity of [place].2.[place] [phone] De dical [place] [address] [address] [facility] 2022-02-05 2022-02-05 Letter [facility] 1.2.653.616 [id number] Univers 00:00:00 00:00:00 (Out) [place] SAPP 350.1.13.10 i ty of [place] [phone] [facility] [address] 2022-01-31 2022-01-31 Outpatient R ADJUSTINA, [facility] [id number] Univers 08:30:00 09:33:19 [place] ity of [facility] 2022-01-31 2022-01-31 Office [facility] 1.2.840.114 [id number] Univers 08:30:00 09:33:19 Visit [place] RIVERA 350.1.13.10 ity of [place] [phone] De dical NAL 134 [facility] 2022-01-31 2022-01-31 Orders Doctor PATITO 1.2.840.114 [id number] Univers 00:00:00 00:00:00 Only Unassigned, JACQUE 350.1.13.10 ity of [place] [facility] 4.2.7.2.686 Tawanda as [phone] [facility] [address] 2022-01-31 2022-01-31 Letter [facility] 1.2.840.114 [id number] Univers 00:00:00 00:00:00 (Out) [place] RIVERA 350.1.13.10 ity of [place].2.[place] [phone] [facility] 134 [facility] 2022-01-13 2022-01-13 Outpatient R MILAN BOSWELL [facility] [id number] Univers 09:00:00 09:00:00 ity of [facility] 2022-01-13 2022-01-13 Telephone Brandt [facility] 1.2.798.742 [id number] Univers 00:00:00 00:00:00 Liu SPECIALTY 350.1.13.10 ity of [place].2.[place] [phone] [facility] [address] 2022-01-10 2022-01-10 Outpatient R JONATHAN [facility] [id number] Univers 13:00:00 13:00:00 HAYLEYLILIANA antoine [facility] 2022-01-02 2022-01-02 Website Designer 2, Adc Lab [facility] 1.2.840.114 [id number] Univers 10:45:00 11:00:00 Visit Rolan Casarez 350.1.13.10 ity [facility] 4.2.[place].2.[place] [phone] Me dical NAL 353 [facility] 2022-01-02 2022-01-02 Outpatient R HERMELINDO [facility] [id number] Univers 09:30:00 10:12:42 ROLAN elina [facility] 2022-01-02 2022-01-02 Office [facility] 1.2.988.177 [id number] Univers 09:30:00 10:12:42 Visit Rolan RIVERA 350.1.13.10 i ty [facility] 4.2.7.2.[place] [phone] De dical NAL 134 [facility] 2022-01-02 2022-01-02 Orders Doctor PATITO 1.2.840.114 [id number] Univers 00:00:00 00:00:00 Only Unassigned, JACQUE 350.1.13.10 ity of [place] [facility] 4.2.7.2.686 Tawanda as [phone] [address] 2021-04-03 2021-04-03 Outpatient R ARTUR [facility] [id number] Univers 10:40:00 10:40:00 KAREN antoine [facility] 2021-02-22 2021-02-22 Telephone Dre [facility] 1.2.384.401 [id number] Univers 00:00:00 00:00:00 Alena RIVERA 350.1.13.10 ity [facility] 4[place]2.[place] [phone] Me dical NAL 225 [facility] 2021-02-12 2021-02-12 Telephone Hermelindo [facility] 1.2.840.114 [id number] Univers 00:00:00 00:00:00 Rolan SELFELVIA 350.1.13.10 i ty of [place] 4.2.7.2.[place] [phone] Me dical NAL [address] [facility] 2021-01-05 2021-01-05 Emergency [facility] 1.2.546.253 [id number] Univers 20:38:00 22:55:00 Roma Rivera 350.1.13.10 ity of [place].2.[place] [phone] [facility] [address] 2020-08-23 2020-08-23 Outpatient R HERMELINDO [facility] 08560 [id number] Univers 15:00:00 15:00:00 [facility] 2020-08-06 2020-08-06 Outpatient R HERMELINDO [facility] [id number] Univers 14:00:00 14:00:00 [facility] 2020-07-06 2020-07-06 Outpatient R ALLY [facility] [id number] Univers 11:20:00 11:20:34 EMELY [facility] 2020-06-15 2020-06-15 Outpatient [facility] [id number] Univers 11:20:00 12:18:13 EMELY [facility] 2020-06-12 2020-06-12 Patient [facility] 1.2.840.114 [id number] 00:00:00 00:00:00 Outreach Chinmay PRIMARY 350.1.13.10 [place] CARE 4.2.7.2.686 PAVILLION [phone] 388 2020-06-12 2020-06-12 Patient [facility] 1.2.840.114 [id number] Univers 00:00:00 00:00:00 Outreach Chinmay PRIMARY 350.1.13.10 i ty of [place] C[place]2.7.2.[place] [phone] Me dical [address] 2020-04-25 2020-04-25 Telephone Alexandria Whitmore [facility] 1.2.840.114 [id number] 00:00:00 00:00:00 [place] 350.1.13.10 [place] 4.2.7.2.686 Professio [phone] [address] 2020-04-25 2020-04-25 Telephone Alexandria Whitmore [facility] 1.2.840.114 [id number] Univers 00:00:00 00:00:00 Cam [place] 350.1.13.10 i ty of [place].7.2.[place] [phone] De dical nal 134 [facility] 2020-04-16 2020-04-16 Nurse Nurse, Tony Quevedo [facility] 1.2.84 0.114 [id number] Univers 10:23:22 10:43:22 Visit Alena Erickson 350.1.13. 10 ity of [place]2.7.2.[place] [phone] De dical nal 225 [facility] 2020-04-16 2020-04-16 Outpatient R [facility] [id number] Univers 10:20:00 10:20:00 ity [facility] 2020-04-03 2020-04-03 Website Designer 2, [facility] Lab [facility] 1.2.840.114 [id number] Univers 11:08:11 11:23:11 Visit Alena Erickson 350.1.13. 10 ity of [place].2.7.2.[place] [phone] De [facility]ical [facility] 353 [facility] 2020-04-03 2020-04-03 Outpatient R DRE [facility] [id number] Univers 11:00:00 11:00:00 ALENA antoine [facility] 2020-04-02 2020-04-02 Carmela Tamayo [facility] 1.2.840.114 [id number] Univers 11:30:50 13:18:47 Encounter Karen Rivera 350.1.13.10 ity of [place] 4.2.7.2.[place] [phone] De dical nal [address] [place] [address] 2020-04-02 2020-04-02 Office [facility] 1.2.840.114 [id number] 10:47:55 11:50:03 Visit Karen Rivera 350.1.13.10 [place] 4.2.7.2.686 Professio [phone] [address] 2020-04-02 2020-04-02 Office [facility] 1.2.840.114 [id number] Univers 10:47:55 11:50:03 Visit Karen Rivera 350.1.13.10 i ty of [place] 4.2.7.2.[place] [phone] [address] 2020-04-02 2020-04-02 Outpatient R ARTUR [facility] [id number] Univers 10:40:00 10:40:00 KAREN [facility] 2020-04-02 2020-04-02 Kathy [facility] 1.2.840.114 [id number] Univers 00:00:00 00:00:00 (Out) Alena France Nicole 350.1.13.10 ity of [place] 4.2.[place].2.[place] [phone] [address] 2020-02-24 2020-02-24 Office [facility] 1.2.840.114 [id number] Univers 13:11:12 14:13:29 Visit Karen Rivera 350.1.13.10 i ty of [place] 4.2.7.2.[place] [phone] [address] 2020-02-24 2020-02-24 Outpatient R ARTUR [facility] [id number] Univers 13:00:00 13:00:00 [facility] 2020-02-01 2020-02-01 Outpatient R [facility] [id number] Univers 13:00:00 13:00:00 ity [facility] 2020-01-30 2020-01-30 Office Alexandria Whitmore [facility] 1.2.309.634 [id number] Univers 14:47:20 15:35:45 Visit Skyler Rivera 350.1.13.10 i ty of [place] 4.2.7.2.[place] [phone] De dical nal 134 [facility] 2020-01-30 2020-01-30 Outpatient R ALEXANDRIA WHITMORE [facility] [id number] Univers 15:00:00 15:00:00 ity [facility] 2020-01-10 2020-01-10 Office Hermelindo [facility] 1.2.716.262 [id number] Univers 14:35:02 16:02:32 Visit Rolan Rivera 350.1.13.10 i ty of [place] 4.2.7.2.[place] [phone] De dical [address] 2020-01-10 2020-01-10 Outpatient R HERMELINDO [facility] [id number] Univers 14:45:00 14:45:00 ROLAN antoine 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 2019-11-14 2019-11-14 Telephone Richard Alexandria [facility] 1.2.840.114 [id number] Univers 00:00:00 00:00:00 Skyler Rivera 350.1.13.10 i ty of [place].2.[place] [phone] De dical nal 134 [facility] 2019-10-13 2019-10-13 Orders Doctor PATITO 1.2.840.114 [id number] Univers 00:00:00 00:00:00 Only Unassigned, JACQUE 350.1.13.10 ity of [place] [facility] 4.2.7.2.686 Tawanda as [phone] [facility] [address] 2019-10-12 2019-10-12 Hospital Dalia Arreguin [facility] 1.2.840.11 [id number] Univers 12:44:00 23:59:00 Encounter Eeg, Sapna Pedi Neuro SPECIALTY 350.1. 13.10 ity of [place] 4.2.7.2.[place] [phone] [facility] [address] 2019-10-12 2019-10-12 Office Boris [facility] 1.2.840.114 [id number] Univers 12:44:33 13:44:33 Visit Dalia SPECIALTY 350.1.13.10 ity of [place] 4.2.7.2.[place] [phone] [facility] [address] 2019-10-12 2019-10-12 Outpatient R BORIS [facility] [id number] Univers 13:00:00 13:00:00 DALIA antoine of [facility] 2019-10-07 2019-10-07 Office Alexandria Whitmore [facility] 1.2.098.604 [id number] Univers 12:46:26 13:32:19 Visit Skyler Rivera 350.1.13.10 i ty of [place] 4[place]2.7.2.[place] [phone] De dicmt nal 134 [facility] 2019-10-07 2019-10-07 Outpatient R ALEXANDRIA WHITMORE [facility] [id number] Univers 13:00:00 13:00:00 ity of [facility] 2019-10-07 2019-10-07 Orders Doctor CAPUTO 1.2.840.114 [id number] Univers 00:00:00 00:00:00 Only Unassigned, JACQUE 350.1.13.10 ity of [place] [facility] 4.2.7.2.686 Tawanda as [phone] [address] 2019-10-06 2019-10-06 Office [facility] 1.2.840.114 [id number] Univers 14:55:54 17:13:05 Visit Alena Rivera 350.1.13.10 ity of [place].2.[place] [phone] De dical nal 225 [facility] 2019-10-06 2019-10-06 [facility] [id number] Univers 15:00:00 15:00:00 ALENA ity [facility] 2019-10-06 2019-10-06 Orders Doctor PATITO 1..840.114 [id number] Univers 00:00:00 00:00:00 Only Unassigned, JACQUE 350.1.13.10 ity of [place] [facility] 4.2.7.2.686 Tawanda as [phone] [address] 2019-10-05 2019-10-05 Telephone Hermelindo [facility] 1..840.114 76 [id number] Univers 00:00:00 00:00:00 Rolan Rivera 350.1.13.10 i ty [facility] 4.2.7.2.[place] [phone] [facility] 134 [facility] 2019-09-28 2019-09-28 Outpatient R [facility] [id number] Univers 15:30:00 15:30:00 ity of [facility] 2019-09-15 2019-09-15 Outpatient R HERMELINDO [facility] [id number] Univers 15:00:00 15:00:00 ROLAN ity [facility] 2019-08-31 2019-08-31 Outpatient R [facility] [id number] Univers 15:00:00 15:00:00 ity of [facility] 2019-08-16 2019-08-16 Outpatient R ALEXANDRIA WHITMORE [facility] [id number] Univers 07:38:13 23:59:00 ity of [facility] 2019-08-16 2019-08-16 [facility] Alexandria Whitmore [facility] 1..840.114 [id number] Univers 07:38:00 23:59:00 Fabio Rivera 350.1.13.10 ity of [place].2.[place] [phone] [facility] [address] 2019-08-08 2019-08-08 Case Hermelindo [facility] 1.2.781.304 [id number] Univers 00:00:00 00:00:00 Management Rolan Rivera 350.1.13.10 ity of [place] 4[place].2.[place] [phone] De dical nal 134 [facility] 2019-08-04 2019-08-04 Office Alexandria Whitmore [facility] 1.2.048.810 [id number] Univers 13:33:06 14:36:24 Visit Skyler Rivera 350.1.13.10 i ty of [place] 4.2.7.2.[place] [phone] De dical nal 134 [facility] 2019-08-04 2019-08-04 Outpatient R ALEXANDRIA WHITMORE [facility] [id number] Univers 13:30:00 13:30:00 ity of [facility] 2019-08-04 2019-08-04 Orders Doctor PATITO 1.2.840.114 [id number] Univers 00:00:00 00:00:00 Only Unassigned, JACQUE 350.1.13.10 ity of [place] [facility] 4.2.7.2.686 Tawanda as [phone] [facility] [address] 2019-07-19 2019-07-19 Telephone Alexandria Whitmore [facility] 1.2.840.114 [id number] Univers 00:00:00 00:00:00 Skyler Rivera 350.1.13.10 i ty of [place]2.7.2.[place] [phone] De dical nal 134 [facility] 2019-06-16 2019-06-16 Website Designer 2, [facility] 1.2.840.114 [id number] Univers 11:24:51 11:39:51 Visit Alena Erickson 350.1.13. 10 ity of [place] 4.2.7.2.[place] [phone] De dical nal 353 [facility] 2019-06-16 2019-06-16 Outpatient [facility] [id number] Univers 11:15:00 11:15:00 ALENA antoine [facility] 2019-06-16 2019-06-16 Orders Doctor PATITO 1.2.840.114 [id number] Univers 00:00:00 00:00:00 Only Unassigned, JACQUE 350.1.13.10 ity of [facility] 4.2.7.2.686 [place]anda as [phone] [address] 2019-06-16 2019-06-16 Telephone [facility] 1.2.785.755 [id number] Univers 00:00:00 00:00:00 Alena Rivera 350.1.13.10 ity of [place].2.[place].2.[place] [phone] De dical [facility] 225 [facility] 2019-06-15 2019-06-15 Outpatient R HERMELINDO [facility] [id number] Univers 10:45:00 10:45:00 ROLAN antoine [facility] 2019-06-15 2019-06-15 Telemedici [facility] 1.2.840.114 [id number] Univers 08:26:10 08:56:10 ne Visit Rolan Rivera 350.1.13.10 ity [facility] 4.2.7.2.[place] [phone] [facility] 134 [facility] 2019-06-09 2019-06-09 Outpatient R HERMELINDO [facility] [id number] Univers 08:45:00 08:45:00 ROLAN antoine [facility] 2019-06-02 2019-06-02 Outpatient R HERMELINDO [facility] [id number] Univers 15:45:00 15:45:00 ROLAN antoine [facility] 2019-05-31 2019-05-31 Outpatient R [facility] [id number] Univers 13:45:00 13:45:00 [facility] 2019-05-23 2019-05-23 Office [facility] 1.2.840.114 [id number] Univers 14:21:31 16:27:38 Visit Alena Rivera 350.1.13.10 ity of [place] 4.2.[place].2.[place] [phone] [facility] 225 [facility] 2019-05-23 2019-05-23 Outpatient Suly ERICKSON [facility] [id number] Univers 14:30:00 14:30:00 ALENA ity of [facility] 2019-05-23 2019-05-23 Kathy Erickson [facility] 1.2.840.114 [id number] Univers 00:00:00 00:00:00 (Out) Alena Rivera 350.1.13.10 ity of [place] 4[place].2.[place] [phone] [facility] 225 [facility] 2019-05-16 2019-05-16 Nurse Nurse, [facility] 1.2.840.114 [id number] Univers 15:19:14 15:52:21 Visit Alexandria Whitmore 350.1.13.10 ity of [place] 4.2.7.2.[place] [phone] [facility] 134 [facility] 2019-05-16 2019-05-16 Outpatient R ALEXANDRIA WHITMORE [facility] [id number] Univers 15:30:00 15:30:00 ity of [facility] 2019-05-03 2019-05-03 Office Urology, [facility] 1.2. 840.114 [id number] Univers 13:12:12 14:43:58 Visit Eddie Demetrius [facility] 350.1.13.1 0 ity of [place].2.[place] [phone] Formerly named [facility] [address] 2019-05-03 2019-05-03 Orders Doctor PATITO 1.2.840.114 [id number] Univers 00:00:00 00:00:00 Only Unassigned, JACQUE 350.1.13.10 ity of [place] [facility] 4.2.7.2.686 Tawanda as [phone] [address] 2019-05-03 2019-05-03 Letter Urology, [facility] 1.2.840.114 [id number] Univers 00:00:00 00:00:00 (Out) [facility] 350.1.13.10 it y of [place].2.[place] [phone] Formerly named [facility] [address] 2019-03-22 2019-03-22 Office Urology, Sapna Quevedo [facility] 1.2.840. 114 [id number] Univers 14:44:34 16:20:55 Visit Demetrius Morgan 350.1.13 .10 [place] of [place].2.[place] [phone] [address] 2018-12-01 2018-12-01 Telephone [facility] 1.2.840.114 [id number] Univers 00:00:00 00:00:00 Aprylyoly Rivera 350.1.13.10 i ty of [place] [phone] [address] 2018-11-30 2018-11-30 Telephone [facility] 1.2.840.114 [id number] Univers 00:00:00 00:00:00 Apryl Rivera 350.1.13.10 i ty of [place] 4[place].2.[place] [phone] [address] 2018-11-12 2018-11-12 Office [facility] 1.2.840.114 [id number] Univers 07:59:52 08:43:27 Visit Apryl Rivera 350.1.13.10 i ty of [place] 4.2.[place].2.[place] [phone] [address] 2018-11-12 2018-11-12 Letter [facility] 1.2.840.114 [id number] Univers 00:00:00 00:00:00 (Out) Apryl Nicole 350.1.13.10 i ty of [place] 4.[place].2.[place] [phone] [address] 2018-11-11 2018-11-11 Nurse Nurse, [facility] 1.2.840.114 [id number] Univers 08:24:16 08:54:22 Visit Alexandria Whitmore 350.1.13.10 ity of [place] 4.[place].2.[place] [phone] De dical nal 134 [facility] 2018-11-11 2018-11-11 Orders Doctor PATITO 1.2.840.[id number] [place] [address] 00:00:00 00:00:00 Only Unassigned, JACQUE 350.1.13.10 ity of [place] [facility] 4.2.7.2.686 Tawanda as [phone] [address] 2018-10-07 2018-10-07 Office Karen Tamayo [facility] 1.2.840.1 14 [id number] [facility] 14:49:05 16:35:54 Visit Alena Erickson 350.1.13. 10 ity of [place].2.[place] [phone] De dical nal 225 [facility] Results Test Description Test Time Test Comments Results Result Comments Source POCT MOLECULAR STREP 2022-08-11 16:32:49 Test Item Value Reference Range Interpretation Comme nts POCT Molecular Strep (test code = 87882-9) Negative Negative Lab Interpretation (test code = 98575-2) Normal [facility] URINALYSIS W/O SPECIFIC [id number] 20:36:00 Test Item Value Reference Range Interpretation [...] code = 3257) negative Negative - Negative [facility] SPECIFIC [id number] 20:36:00 Test Item Value Reference Range Interpretation [...] code = 3257) negative Negative - Negative [facility] [id number] 15:01:00 Test Item Value Reference Range Interpretation Comments POCT PREG (test code = 1605) Negative On board controls acceptable with C Yes Line (test code = 3574) POCT PREG LOT # (test code = 3575) POCT PREG TEST DATE (test code = 3576) [facility] [id number] 15:01:00 Test Item Value Reference Range Interpretation Comments POCT PREG (test code = 1605) Negative On board controls acceptable with C Yes Line (test code = 3574) POCT PREG LOT # (test code = 3575) POCT PREG TEST DATE (test code = 3576) [facility] [id number] 15:01:00 Test Item Value Reference Range Interpretation Comments POCT PREG (test code = 1605) Negative On board controls acceptable with C Yes Line (test code = 3574) POCT PREG LOT # (test code = 3575) POCT PREG TEST DATE (test code = 3576) [id number] Test Item Value Reference Range Interpretation Comments ALCOHOL (test code = <10 mg/dL [id number]) HAZEL (test code = HAZEL) <10 [id number] Toxic>100 Depression of STEEL TURNER>400 Fatalities Reported [facility] [id number] 02:44:00 Test Item Value Reference Range Interpretation Comments POCT PREG (test code = 1605) negative On board controls acceptable with present C Line (test code = 3574) POCT PREG LOT # (test code = 3575) [id number] POCT PREG TEST DATE (test 2022-04-22 code = 3576) Lab Interpretation (test code = Normal 93631-0) [facility]. METABOLIC PANEL (33935)2021-01-06 02:40:21 Test Item Value Reference Range Interpretation Comments NA (test code = 139 mmol/L 135-145 9483427321) K (test code = 3.8 mmol/L 3.5-5.0 6606938470) CL (test code = 114 mmol/L 98-108 H 6894813797) CO2 TOTAL (test code = 20 mmol/L 23-31 L 5405921657) AGAP (test code = 2-16 1651285508) BUN (test code = 13 mg/dL 7-23 5871831189) GLUCOSE (test code = 86 mg/dL 70-110 1228081677) CREATININE (test code = 0.53 mg/dL 0.50-1.04 6785291933) TOTAL BILI (test code = 0.4 mg/dL 0.1-1.3 0676250728) CALCIUM (test code = 7.8 mg/dL 8.6-10.6 L 2995394019) T PROTEIN (test code = 5.6 g/dL 6.3-8.2 L 9205321345) ALBUMIN (test code = 3.1 g/dL 3.5-5.0 L 9022378422) ALK PHOS (test code = 36 U/L 34-122 3632599385) ALTv (test code = 14 U/L 5-35 1742-6) AST(SGOT) (test code = 26 U/L 13-40 6477126372) eGFR (test code = mL/min/1.73m2 4077385837) HAZEL (test code = HAZEL) Association of [...] tests). Lab Interpretation Abnormal (test code = 83541-5) [facility] [id number] 02:30:07 Test Item Value Reference Range Interpretation Comments LACTIC ACID (test code = 1.53 mmol/L 0.50-2.20 8610778715) Lab Interpretation (test code = Normal 28807-2) [facility] WITH [id number] 02:20:01 Test Item Value Reference Range Interpretation Comments WBC (test code = See_Comment [Automated 3603-2) message] The sy stem which generated this result transmitted reference range : 4.50 - 13.50 10*3/?L. The reference range was not used to interpret this result as normal/abnormal . RBC (test code = See_Comment [Automated 072-8) message] The sy stem which generated this [...] RDW-SD (test code = 45.0 fL 38.5-49.0 78953-4) RDW-CV (test code = 14.8 % 11.5-14.0 H 788-0) PLT (test code = See_Comment [Automated 777-3) message] The sy stem which generated this result transmitted reference range : 135 - 361 10*3/ ?L. The reference r ilsa was not used to interpret this result as normal/abnormal . MPV (test code = 10.5 fL 9.4-13.3 98420-7) NRBC/100 WBC (test See_Comment [Automat ed code = 8370866394) message] The system which generated this result transmitted reference range : 0.0 - 10.0 /100 WBCs. The refer ence range was not u sed to interpret th is result as normal/abnormal . NRBC x10^3 (test code <0.01 See_Comment [Auto mated = 2532907628) message] The s ystem which generated this result transmitted reference range : 10*3/?L. The reference range was not used to interpret this result as normal/abnormal . GRAN MAT (NEUT) % 45.6 % (test code = 770-8) IMM GRAN % (test code 0.20 % = 4208801338) LYMPH % (test code = 42.0 % 736-9) MONO % (test code = 9.9 % 5905-5) EOS % (test code = 2.1 % 713-8) BASO % (test code = 0.2 % 706-2) GRAN MAT x10^3(ANC) 3.68 10*3/uL 1.50-10.30 (test code = 1449950286) IMM GRAN x10^3 (test <0.03 0.00-0.06 code = 4254965796) LYMPH x10^3 (test code 3.39 10*3/uL 0.70-7.40 = 731-0) MONO x10^3 (test code 0.80 10*3/uL 0.00-0.50 H = 742-7) EOS x10^3 (test code = 0.17 10*3/uL 0.00-0.40 711-2) BASO x10^3 (test code <0.03 0.00-0.10 = 704-7) Lab Interpretation Abnormal (test code = 46967-0) [facility] RAPID STREP SCREEN FOR GROUP [id number] 19:24:00 Test Item Value Reference Range Interpretation Comments POCT GP A STREP (test code = negative Negative - Negative 38506-7) [facility] RAPID STREP SCREEN FOR GROUP [id number] 19:24:00 Test Item Value Reference Range Interpretation Comments POCT GP A STREP (test code = negative Negative - Negative 65236-2) [facility] [id number] 00:00:00 Test Item Value Reference Range Interpretation Comments IMP (test code = Electroencephalogram IMP) Report NAME: Romy BernsteinAGE: 19 Year(s) 6 Month(s)DATE OF EE10/12/2019PROCEDURE: ?EEG ? ? EEG#: [id number] PHYSICIAN: Dalia Arreguin MDLOCATION: [facility] [place] [facility] DI[facility]NOSIS: Seizure vs PNESPERTINENT MEDICATIONS: ?N/A [...] 44m39s Lab Interpretation Normal (test code = 06685-0) [facility] ULTRASOUND BREAST LIMITED [id number] 13:32:53HISTORY: 2 palpable masses in the left [...] patient and hermother. ACR classification: Category II. [facility], Radiant Results Inft User - 08/16/2019 [...] with the patient and hermother.ACR classification: Category II.[facility] SPECIFIC GRAVITY [...] code = 3257) 4+ Negative - Negative [facility]/O SPECIFIC [id number] 19:35:00 Test Item Value Reference Range Interpretation [...] code = 3257) 4+ Negative - Negative [facility] [id number] 18:57:00 Test Item Value Reference Range Interpretation Comments POCT PREG (test code = 1605) Negative On board controls acceptable with C Yes Line (test code = 3574) POCT PREG LOT # (test code = 3575) POCT PREG TEST DATE (test code = 3576) [facility] [id number] 18:57:00 Test Item Value Reference Range Interpretation Comments POCT PREG (test code = 1605) Negative On board controls acceptable with C Yes Line (test code = 3574) POCT PREG LOT # (test code = 3575) POCT PREG TEST DATE (test code = 3576) [facility] [id number] 22:13:00 Test Item Value Reference Range Interpretation Comments URINE CULTURE (test > 100,000 CFU/mL mixed code = 630-4) aerobic organisms - suggests endogenous microbial contamination [facility] [id number] 22:13:00 Test Item Value Reference Range Interpretation Comments URINE CULTURE (test > 100,000 CFU/mL mixed code = 630-4) aerobic organisms - suggests endogenous microbial contamination [facility]
[2023-01-15 14:20] LABS: Specific Gravity 1.027 (1.005-1.030)
[2023-01-15 14:27] LABS: Specific Gravity 1.027 (1.005-1.030); Urine Bilirubin NEGATIVE (Negative); Urine Blood Negative (Negative); Urine Clarity Extremely Turbid (Clear); Urine Color Light-Yellow (Yellow); Urine Glucose NEGATIVE (Negative); Urine Protein NEGATIVE (Negative); Urine Urobilinogen Normal (Normal); Urine pH 5.5 (5.0-7.0)
[2023-01-15 14:28] LABS: Urine Bacteria <20 /HPF (<20); Urine Mucus Slight /HPF (None Seen)
[2023-01-15 14:37] LABS: SARS-CoV-2 Antigen Rapid Res Negative (Negative)
[2023-01-15] MEDS ORDERED: MECLIZINE HCL 12.5 MG TAB ONE (15:03)
--- NOTE | 2023-01-15 15:38 | ER ---
Nurse's Notes [facility] Name: Romy Bernstein Age: 22 yrs Sex: Female : 2000 Arrival Date: 01/15/2023 Time: 13:11 Bed 12 Private MD: Diagnosis: Dizziness and giddiness;Volume depletion, unspecified Presentation: 01/15 13:23 Chief complaint: Patient states: Abdominal pain, RIBERA, nausea, dizzy, fever since ll1 yesterday morning. Had to leave work today. Coronavirus screen: Vaccine status: Patient reports receiving the 2nd dose of the covid vaccine. Client denies travel out of the [place] in the last 14 days. diarrhea, fatigue, fever, headache, nausea, Client presents with at least one sign or symptom that may indicate coronavirus-19. Standard/surgical mask placed on the client. Ebola Screen: Patient denies travel to an Ebola-affected area in the 21 days before illness onset. Initial Sepsis Screen: Does the patient meet any 2 criteria? HR > 90 bpm. No. Patient's initial sepsis screen is negative. Does the patient have a suspected source of infection? Yes: Acute abdominal pain. Risk Assessment: Do you want to hurt yourself or someone else? Patient reports no desire to harm self or others. Onset of symptoms was January 14, 2023. 13:23 Method Of Arrival: Ambulatory ll1 13:23 Acuity: SERA 3 ll1 Triage Assessment: 15:48 General: Appears in no apparent distress. comfortable, Behavior is calm, cooperative, nj1 appropriate for age. Pain: Denies pain. Historical: - Allergies: 13:25 Keppra; ll1 13:25 Vesicare; ll1 - PMHx: 13:25 bladder problems; Anxiety; Seizures; ll1 - PSHx: 13:25 Tonsillectomy; ll1 - Immunization history:: Adult Immunizations up to date. - Social history:: Smoking status: Patient denies any tobacco usage or history of. Screenin:47 [facility] ED Fall Risk Assessment (Adult). [facility] ED Fall Risk Assessment (Adult) nj1 Score/Fall Risk Level 0 - 2 = Low Risk Oriented to surroundings, Maintained a safe environment, Hourly rounding (assess needs \T\ fall precautionary measures) done. Abuse screen: Denies threats or abuse. Denies injuries from another. Nutritional screening: No deficits noted. Tuberculosis screening: No symptoms or risk factors identified. Assessment: 13:58 Reassessment: No changes from previously documented assessment. Patient and/or family ll1 updated on plan of care and expected duration. Pain level reassessed. Patient is alert, oriented x 3, equal unlabored respirations, skin warm/dry/pink. 15:47 Reassessment: Patient appears in no apparent distress at this time. Patient and/or nj1 family updated on plan of care and expected duration. Pain level reassessed. Patient is alert, oriented x 3, equal unlabored respirations, skin warm/dry/pink. Patient denies pain at this time. Patient states feeling better. Patient states symptoms have improved. Vital Signs: 13:23 BP 150 / 95; Pulse 97; Resp 17; Temp 98.8; Pulse Ox 100% ; Weight 81.65 kg; Height 5 ll1 ft. 4 in. ; Pain 9/10; 14:16 BP 121 / 74 Sitting; Pulse 77; Resp 17; Pulse Ox 100% on R/A; bc6 14:17 BP 113 / 66 Supine; Pulse 78; Resp 17; Pulse Ox 100% on R/A; bc6 14:17 BP 117 / 81 Standing; Pulse 99; Resp 18; Pulse Ox 100% on R/A; bc6 15:47 BP 117 / 72; Pulse 75; Resp 16; Pulse Ox 100% on R/A; Pain 0/10; nj1 13:23 Body Mass Index 30.90 (81.65 kg, 162.56 cm) ll1 13:23 Pain Scale: Adult 1 15:47 Pain Scale: Adult ms1 ED Course: 13:13 Patient arrived in ED. rg4 13:14 Pamela Dee FNP-C [facility] snw 13:14 Juancarlos Frey MD is Attending Physician. snw 13:25 Triage completed. ll1 13:25 Arm band placed on. ll1 13:52 Patient placed in an exam room, on a stretcher. ll1 13:58 Flu Sent. ll1 13:58 SARS RAPID Sent. ll1 13:58 Strep Sent. ll1 14:07 Flu Sent. ll1 14:07 SARS RAPID Sent. ll1 14:07 Strep Sent. ll1 14:08 PREGU Sent. bc6 14:08 Urine W/Microscopic (UAM) Sent. [facility] 14:19 PREGU Sent. 6 14:19 Urine W/Microscopic (UAM) Sent. [facility] 14:47 Patricia Nassar, RN is Primary Nurse. ph 15:48 No provider procedures requiring assistance completed. Patient did not have IV access nj1 during this emergency room visit. 15:49 Patient has correct armband on for positive identification. Bed in low position. Call nj1 light in reach. Provided Education on: discharge instructions. Administered Medications: 14:51 Drug: Meclizine PO 50 mg PO once Route: PO; ph 15:49 Follow up: Response: No adverse reaction; Marked relief of symptoms nj1 Medication: 15:49 VIS not applicable for this client. nj1 Outcome: 15:37 Discharge ordered by . snw 15:48 Discharged to home ambulatory, nj1 15:48 Condition: stable 15:48 Discharge instructions given to patient, Instructed on discharge instructions, follow up and referral plans. medication usage, Demonstrated understanding of instructions, follow-up care, medications, Prescriptions given X 1, 15:49 Patient left the ED. nj1 Signatures: Pamela Dee, PATENT CHEMIST-C PATENT CHEMIST-Csnw Patricia Nassar, RN RN ph Edwige Doran rg4 Mayi Jack RN RN ll1 Halina Arboleda 6 Nimo Alcantara RN RN nj1
--- NOTE | 2023-01-15 15:38 | EDPHYS ---
Physician Documentation [facility] Name: Romy Bernstein Age: 22 yrs Sex: Female : 2000 Arrival Date: 01/15/2023 Time: 13:11 Bed 12 Private MD: ED Physician Juancarlos Frey HPI: 01/15 14:48 This 22 yrs old Female presents to ER via Ambulatory with complaints of snw Dizziness, Headache, Fever, Abdominal Pain. 14:48 The patient presents with room spinning, worse with position changes. Onset: The snw symptoms/episode began/occurred suddenly, 2 day(s) ago. Context: occurred at home. Modifying factors: The symptoms are alleviated by nothing, the symptoms are aggravated by standing up. Severity of symptoms: At their worst the symptoms were mild moderate. It is unknown whether or not the patient has had similar symptoms in the past. The patient has not recently seen a physician. Historical: - Allergies: 13:25 Keppra; ll1 13:25 Vesicare; ll1 - PMHx: 13:25 bladder problems; Anxiety; Seizures; ll1 - PSHx: 13:25 Tonsillectomy; ll1 - Immunization history:: Adult Immunizations up to date. - Social history:: Smoking status: Patient denies any tobacco usage or history of. ROS: 14:46 Eyes: Negative for injury, pain, redness, and discharge, ENT: Negative for injury, snw pain, and discharge, Neck: Negative for injury, pain, and swelling, Cardiovascular: Negative for chest pain, palpitations, and edema, Respiratory: Negative for shortness of breath, cough, wheezing, and pleuritic chest pain, Abdomen/GI: Negative for abdominal pain, nausea, vomiting, diarrhea, and constipation, Back: Negative for injury and pain, : Negative for injury, bleeding, discharge, and swelling, MS/Extremity: Negative for injury and deformity, Skin: Negative for injury, rash, and discoloration, Psych: Negative for depression, anxiety, suicide ideation, homicidal ideation, and hallucinations, 14:46 Constitutional: Positive for body aches, fever, malaise, poor PO intake, 14:46 Neuro: Positive for dizziness, headache, Negative for seizure activity, not taking anticonvulsants x "a long time", no seizures since the beginning of the year per report, Exam: 14:46 Constitutional: This is a well developed, well nourished patient who is awake, alert, snw and in no acute distress. Head/Face: Normocephalic, atraumatic. Eyes: Pupils equal round and reactive to light, extra-ocular motions intact. Lids and lashes normal. Conjunctiva and sclera are non-icteric and not injected. Cornea within normal limits. Periorbital areas with no swelling, redness, or edema. ENT: Nares patent. No nasal discharge, no septal abnormalities noted. Tympanic membranes are normal and external auditory canals are clear. Oropharynx with no redness, swelling, or masses, exudates, or evidence of obstruction, uvula midline. Mucous membranes moist. Neck: Trachea midline, no thyromegaly or masses palpated, and no cervical lymphadenopathy. Supple, full range of motion without nuchal rigidity, or vertebral point tenderness. No Meningismus. Chest/axilla: Normal chest wall appearance and motion. Nontender with no deformity. No lesions are appreciated. Cardiovascular: Regular rate and rhythm with a normal S1 and S2. No gallops, murmurs, or rubs. Normal PMI, no JVD. No pulse deficits. Respiratory: Lungs have equal breath sounds bilaterally, clear to auscultation and percussion. No rales, rhonchi or wheezes noted. No increased work of breathing, no retractions or nasal flaring. Abdomen/GI: Soft, non-tender, with normal bowel sounds. No distension or tympany. No guarding or rebound. No evidence of tenderness throughout. Back: No spinal tenderness. No costovertebral tenderness. Full range of motion. Skin: Warm, dry with normal turgor. Normal color with no rashes, no lesions, and no evidence of cellulitis. MS/ Extremity: Pulses equal, no cyanosis. Neurovascular intact. Full, normal range of motion. Neuro: Awake and alert, GCS 15, oriented to person, place, time, and situation. Cranial nerves II-XII grossly intact. Motor strength 5/5 in all extremities. Sensory grossly intact. Cerebellar exam normal. Normal gait. Psych: Awake, alert, with orientation to person, place and time. Behavior, mood, and affect are within normal limits. Vital Signs: 13:23 BP 150 / 95; Pulse 97; Resp 17; Temp 98.8; Pulse Ox 100% ; Weight 81.65 kg; Height 5 ll1 ft. 4 in. ; Pain 9/10; 14:16 BP 121 / 74 Sitting; Pulse 77; Resp 17; Pulse Ox 100% on R/A; bc6 14:17 BP 113 / 66 Supine; Pulse 78; Resp 17; Pulse Ox 100% on R/A; bc6 14:17 BP 117 / 81 Standing; Pulse 99; Resp 18; Pulse Ox 100% on R/A; bc6 15:47 BP 117 / 72; Pulse 75; Resp 16; Pulse Ox 100% on R/A; Pain 0/10; nj1 13:23 Body Mass Index 30.90 (81.65 kg, 162.56 cm) ll1 13:23 Pain Scale: Adult ll1 15:47 Pain Scale: Adult nj1 MDM: 14:28 Patient medically screened. snw 15:38 Differential diagnosis: hypovolemia, , uti. Data reviewed: vital signs, nurses snw notes. I considered the following discharge prescriptions or medication management in the emergency department Medications were administered in the Emergency Department. See MAR. Counseling: I had a detailed discussion with the patient and/or guardian regarding the historical points, exam findings, and any diagnostic results supporting the discharge/admit diagnosis, lab results, the need for outpatient follow up, for definitive care, to return to the emergency department if symptoms worsen or persist or if there are any questions or concerns that arise at home. Response to treatment: the patient's symptoms have markedly improved after treatment. Special discussion: Based on the history and exam findings, there is no indication for further emergent testing or inpatient evaluation. I discussed with the patient/guardian the need to see the primary care provider for further evaluation of the symptoms. ED course: Pt up to void, back to exam room, looks better. Pt states she feels a lot better and can move around more quickly.. 01/15 13:45 Order name: Urine W/Microscopic (UAM); Complete Time: 14:29 snw 01/15 13:45 Order name: PREGU; Complete Time: 14:29 snw 01/15 13:46 Order name: Flu; Complete Time: 14:44 snw 01/15 13:46 Order name: SARS RAPID; Complete Time: 14:44 snw 01/15 13:46 Order name: Strep snw 01/15 14:29 Order name: Throat Culture EDMS 01/15 14:10 Order name: Orthostatics; Complete Time: 14:16 snw Administered Medications: 14:51 Drug: Meclizine PO 50 mg PO once Route: PO; ph 15:49 Follow up: Response: No adverse reaction; Marked relief of symptoms nj1 Disposition Summary: 01/15/23 15:37 Discharge Ordered Notes: Location: Home snw Condition: Stable snw Diagnosis - Dizziness and giddiness snw - Volume depletion, unspecified snw Followup: snw - With: Emergency Department - When: As needed - Reason: Worsening of condition Followup: snw - With: Private Physician - When: 2 - 3 days - Reason: Recheck today's complaints, Continuance of care, Re-evaluation by your physician Discharge Instructions: - Dehydration, Adult snw - Dizziness snw - Rehydration, Adult snw - Discharge Summary Sheet ll1 Forms: - Medication Reconciliation Form snw - Thank You Letter snw - Antibiotic Education snw - Prescription Opioid Use snw - Patient Portal Instructions snw - Leadership Thank You Letter snw - Work release form ll1 Prescriptions: - Meclizine 25 mg Oral Tablet - take 1 tablet ORAL route every 8 hours As needed; 30 tablet; Refills: 0, snw Product Selection Permitted Signatures: Dispatcher [employer] [facility] Pamela Dee FNP-[employer]-Csnw Patricia Nassar RN RN Mayi Jack RN RN ll1 Nimo Alcantara RN nj1
[2023-01-15 16:39] VITALS: BP 117/72; TEMP 98.8; O2SAT 100
== END 2023-01-15 15:49 | disposition home or self-care (01) ==
LOC: ER 13:11
DX: R42 Dizziness and giddiness (principal); E86.9 Volume depletion, unspecified; F41.9 Anxiety disorder, unspecified; Z20.822 Contact with and (suspected) exposure to COVID-19; Z88.8 Allergy status to other drugs, medicaments and biological substances
CPT/HCPCS: 87070; 81001; 36415; 81025; 87081; 87804 ×2; 99284; 87811; J8597

== ENCOUNTER → 2023-04-19 | Emergency (ER) | payer SELFPAY ==
[~2023-04-19] MED LIST: NA CHLORIDE 0.9% 1,000 ML ONE; ONDANSETRON 4 MG/2 ML VIAL ONE
--- OUTSIDE RECORDS SUMMARY | 2023-04-19 19:26 | XMS REPORT | Continuity of Care Document ---
Author Name Unknown Address [address] [facility] [address] [place] [address] [facility] thconnect Address [address] [facility] [address] [place] [address] Care Team Providers Care Counter Intelligence Technician Name Role Phone PCP, PATIENT DOES NOT HAVE A Primary Care Physic drea Unavailable ALEXANDRIA WHITMORE Attending Clinician Unavailable ROLAN CASAREZ Attending Clinician Unavailable MILAN DELCID Attending Clinician Unavailable Leslie Carreon Attending Clinician UnavailMilan Smith MD Attending Clinician [phone] Viet LARKIN, Corrine Barakat Attending Clinician UnavailRolan Varma PA-C Attending Clinician [phone] Lab, c Attending Clinician Unavailable Alexandria Whitmore MD Attending Clinician [phone] MANNY CARMEN Attending Clinician Unavailable Manny Marley Attending Clinician [phone] Unknown, Attending Attending Clinician Unavailab le Doctor Unassigned, [place] Attending Clinician [facility] [place] Doran Attending Clinician Unavailable Brooklyn Garduno MD Attending Clinician [phone] Liu Carlton Attending Clinician Unavailable HAYLEY CASTILLO Attending Clinician Unavailable 2, [facility] Attending Clinician Unavailable KAREN TAMAYO Attending Clinician Unavailable Alena Erickson MD Attending Clinician [phone] Roma Adame NP Attending Clinician EMELY CANALES Attending Clinician Unavailable Chinamy Aly DO Attending Clinician Nurse, Tony Qiui Attending Clinician UnavailALENA Ghosh Attending Clinician Unavaila Karen Maria Attending Clinician Dalia Arreguin MD Attending Clinician Eeg, Sapna Pedi Neuro Attending Clinician UnavailDALIA Torres Attending Clinician Unavailable Nurse, [facility] Attending Clinician Un available Urology, [facility] Pedi Attending Clinician Lizandro Morgan MD, Demetrius Attending Clinician [phone] Urology, Sapna Pedi Attending Clinician UnavailApryl Escobar MD Attending Clinician [phone] ROLAN CASAREZ Admitting Clinician Unavailable ALEXANDRIA WHITMORE Admitting Clinician Unavailable Payers Payer Name Policy Type Policy Number Effective Date Expirati on Date Source [employer] MEDICAID [id number] 2016 00:00:00 [facility] [id number] 2022 00:00:00 [facility] [id number] 2022 00:00:00 [place] [id number] 2021 00:00:00 2022 00:00:00 Problems Condition Name Condition Details Condition Category Status Onset Date Resolution Date Last Treatment Date Treating Clinician Comments Source Nexplanon in place Nexplanon in place Disease Active 08-03 00:00: 00 [facility] Burning with urination Burning with urination Disease Active 08-03 00:00: 00 [facility] Chronic nonintract able headache, unspecifie d headache type Chronic nonintract able headache, unspecifie d headache type Disease Active 3-13 00:00: 00 [facility] Obesity peds (BMI >=95 percentile ) Obesity peds (BMI >=95 percentile ) Disease Active 7-19 00:00: 00 [facility] Generalize d epilepsy Generalize d epilepsy Disease Active 10-08 00:00: 00 Overview: Formattin g of this note might be different from the original. 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 Disease Active 10-07 00:00: 00 [facility] Weight gain Weight gain Disease Active 10-07 00:00: 00 [facility] Migraine without aura and without status migrainosu s, not intractabl e Migraine without aura and without status migrainosu s, not intractabl e Disease Active 03-30 00:00: 00 [facility] Family history of breast cancer Family history of breast cancer Disease Active 2017-03 00:00: 00 [facility] Depo-Prove ra contracept thea status Depo-Prove ra contracept thea status Disease Active 2017-03 00:00: 00 [facility] Breast asymmetry in female Breast asymmetry in female Disease Active 2017-03 00:00: 00 [facility] Asthma Asthma Disease Active [facility] Allergic rhinitis Allergic rhinitis Disease Active [facility] Family history of familial hyperchole sterolemia Family history of familial hyperchole sterolemia Disease Active [facility] Allergies, Adverse Reactions, Alerts Allergy Name Allergy Type Status Severity Reaction(s) Onset Date Inactive Date Treating Clinician Comments Source LEVETIRA CETAM DRUG INGREDI Active Other-Cmnt 2021-03 00:00: 00 [facility] Levetira cetam Propensi ty to adverse reaction s Active Other - See comments 2021-03 00:00: 00 Numb mouth, and sleepy [facility] Solifena lizabeth Succinat e Propensi ty to adverse reaction s Active Swelling 2016-03 00:00: 00 [facility] SOLIFENA LIZABETH SUCCINAT E DRUG INGREDI Active Rash 2016-03 00:00: 00 [facility] Solifena lizabeth Propensi ty to adverse reaction s Active Swelling 2011-03 00:00: 00 Per mom, after increasin g the dose to 10 mg , patient experienc ed swelling to the face. [facility] SOLIFENA LIZABETH DRUG INGREDI Active High Swelling 2011-03 00:00: 00 [facility] Social History Social Habit Start Date Stop Date Quantity Comments Source History of tobacco use Passive smoker [facility] Gender identity [facility] Sexual orientation [facility] Alcohol intake 2022-11-19 00:00:00 2022-11-19 00:00:00 Current non-drinker of alcohol (finding) [facility] Exposure to SARS-CoV-2 (event) 2022-08-01 00:00:00 2022-08-11 11:13:00 Not sure [facility] History of Social function 2022-08-11 00:00:00 2022-08-11 00:00:00 [facility] Tobacco use and exposure 2022-01-02 00:00:00 2022-01-02 00:00:00 Smokeless tobacco non-user [facility] Sex Assigned At 2002 00:00:00 2000 00:00:00 [facility] Smoking Status Start Date Stop Date Source Never smoked tobacco [facility] Medications Ordered Medication Name Filled Medication Name Start Date Stop Date Current Medication? Ordering Clinician Indication Dosage Frequency Signature (SIG) Comments Components Source ofloxacin 0.3 % otic drops 08-11 00:00: 00 08-19 04:59 :00 No [id number] 5[drp] Place 5 Drops in right ear in the morning and 5 Drops in the evening. Do all this for 7 days. [facility] No known medications 2021-03 13:07: 23 No No known medication s [facility] No known medications 2021-03 13:07: 23 No No known medication s [facility] No known medications 2021-03 13:07: 23 No No known medication s [facility] No known medications 2021-03 13:07: 23 No No known medication s [facility] No known medications 2021-03 13:07: 23 No No known medication s [facility] No known medications 2021-03 13:07: 23 No No known medication s [facility] etonogestre L (NEXPLANON) implant 68 mg 2021-03 16:15: 00 01-31 15:23 :00 No [id number] 68mg [facility] etonogestre L (NEXPLANON) implant 68 mg 2021-03 16:15: 00 01-31 15:23 :00 No [id number] 68mg 68 mg, Subdermal, ONCE NOW, 1 dose, On Thu01/31/22 at 1015, Routine
Use approved by: INTERIOR DESIGN INSTRUCTOR [facility] etonogestre L (NEXPLANON) implant 68 mg 2021-03 16:15: 00 01-31 15:23 :00 No [id number] 68mg [facility] etonogestre L (NEXPLANON) implant 68 mg 2021-03 16:15: 00 01-31 15:23 :00 No [id number] 68mg 68 mg, Subdermal, ONCE NOW, 1 dose, On Thu01/31/22 at 1015, Routine
Use approved by: INTERIOR DESIGN INSTRUCTOR [facility] etonogestre L (NEXPLANON) implant 68 mg 2021-03 16:15: 00 01-31 15:23 :00 No [id number] 68mg [facility] etonogestre L (NEXPLANON) implant 68 mg 2021-03 16:15: 00 01-31 15:23 :00 No [id number] 68mg 68 mg, Subdermal, ONCE NOW, 1 dose, On Thu01/31/22 at 1015, Routine
Use approved by: INTERIOR DESIGN INSTRUCTOR [facility] No known medications 2021-03 08:48: 39 No No known medication s [facility] No known medications 2021-03 08:48: 39 No No known medication s [facility] No known medications 2021-03 09:58: 47 No No known medication s [facility] No known medications 2021-03 09:58: 47 No No known medication s [facility] No known medications 2021-03 09:58: 47 No No known medication s [facility] No known medications 2021-03 09:58: 47 No No known medication s [facility] calcium chloride 100 mg/mL (10 %) syringe 1,000 mg 2020-03 04:30: 00 01-06 03:55 :00 No 1000mg 1,000 mg, Intravenou s, ONCE, 1 dose, On 01/05/21 at 2330, STAT [facility] levETIRAcet am (KEPPRA) in NACL (ISO-OS) 1,000 mg/100 mL RTU 2020-03 03:15: 00 01-06 02:51 :00 No 1000mg 1,000 mg, IV Infusion, ONCE, 1 dose, On 01/05/21 at 2215, Administer over 15 Minutes, 100 mL [facility] NaCl 0.9% (NS) IV infusion 1,000 mL 2020-03 03:00: 00 01-06 04:30 :00 No 1000mL at 999 mL/hr, IV Infusion, ONCE, 1 dose, On 01/05/21 at 2200, STEFANIA [facility] NaCl 0.9% (NS) bolus infusion 1,000 mL 2020-03 03:00: 00 01-06 04:30 :00 No 1000mL at 999 mL/hr, 1,000 mL, IV Infusion, ONCE, 1 dose, On 01/05/21 at 2200, STEFANIA [facility] No known medications 2020-03 23:25: 12 No [facility] No known medications 2020-03 23:25: 12 No [facility] No known medications 2020-03 23:25: 12 No No known medication s [facility] ciprofloxac in HCl 250 mg tablet 2020-03 00:00: 00 01-09 04:59 :00 No [id number] 250mg Take 1 tablet by mouth 2 (two) times daily for 3 days. [facility] fluticasone propionate 50 mcg/actuati on nasal spray 04-02 00:00: 00 Yes [id number] 1{spray } Use 1 [place] in each nostril daily. [facility] fluticasone propionate 50 mcg/actuati on nasal spray 04-02 00:00: 00 Yes [id number] 1{spray } Use 1 [place] in each nostril daily. [facility] fluticasone propionate 50 mcg/actuati on nasal spray 04-02 00:00: 00 Yes [id number] 1{spray } Use 1 [place] in each nostril daily. [facility] fluticasone propionate 50 mcg/actuati on nasal spray 04-02 00:00: 00 Yes [id number] 1{spray } Use 1 [place] in each nostril daily. [facility] fluticasone propionate 50 mcg/actuati on nasal spray 04-02 00:00: 00 Yes [id number] 1{spray } Use 1 [place] in each nostril daily. [facility] fluticasone propionate 50 mcg/actuati on nasal spray 04-02 00:00: 00 Yes [id number] 1{spray } Use 1 [place] in each nostril daily. [facility] fluticasone propionate 50 mcg/actuati on nasal spray 04-02 00:00: 00 01-05 00:00 :00 No [id number] 1{spray } Use 1 [place] in each nostril daily. [facility] ibuprofen 600 mg tablet 2019-03 00:00: 00 Yes [id number] 600mg Take 1 tablet by mouth every 8 (eight) hours as needed for Pain (scale 4-6) (headache) . [facility] cetirizine 10 mg tablet 2019-03 00:00: 00 Yes [id number] 10mg Take 1 tablet by mouth daily. [facility] fluticasone propionate 50 mcg/actuati on nasal spray 2019-03 00:00: 00 Yes [id number] 1{spray } Use 1 [place] in each nostril daily. [facility] ibuprofen 600 mg tablet 2019-03 00:00: 00 Yes [id number] 600mg Take 1 tablet by mouth every 8 (eight) hours as needed for Pain (scale 4-6) (headache) . [facility] cetirizine 10 mg tablet 2019-03 00:00: 00 Yes [id number] 10mg Take 1 tablet by mouth daily. [facility] fluticasone propionate 50 mcg/actuati on nasal spray 2019-03 00:00: 00 Yes [id number] 1{spray } Use 1 [place] in each nostril daily. [facility] cetirizine 10 mg tablet 2019-03 00:00: 00 Yes [id number] 10mg Take 1 tablet by mouth daily. [facility] cetirizine 10 mg tablet 2019-03 2 00:00: 00 Yes [id number] 10mg Take 1 tablet by mouth daily. [facility] cetirizine 10 mg tablet 2019-03 00:00: 00 Yes [id number] 10mg Take 1 tablet by mouth daily. [facility] cetirizine 10 mg tablet 2019-03 00:00: 00 Yes [id number] 10mg Take 1 tablet by mouth daily. [facility] cetirizine 10 mg tablet 2019-03 00:00: 00 Yes [id number] 10mg Take 1 tablet by mouth daily. [facility] cetirizine 10 mg tablet 2019-03 00:00: 00 Yes [id number] 10mg Take 1 tablet by mouth daily. [facility] cetirizine 10 mg tablet 2019-03 00:00: 00 Yes [id number] 10mg Take 1 tablet by mouth daily. [facility] cetirizine 10 mg tablet 2019-03 00:00: 00 Yes [id number] 10mg Take 1 tablet by mouth daily. [facility] cetirizine 10 mg tablet 2019-03 00:00: 00 Yes [id number] 10mg Take 1 tablet by mouth daily. [facility] cetirizine 10 mg tablet 2019-03 00:00: 00 Yes [id number] 10mg Take 1 tablet by mouth daily. [facility] cetirizine 10 mg tablet 2019-03 00:00: 00 Yes [id number] 10mg Take 1 tablet by mouth daily. [facility] cetirizine 10 mg tablet 2019-03 00:00: 00 Yes [id number] 10mg Take 1 tablet by mouth daily. [facility] cetirizine 10 mg tablet 2019-03 00:00: 00 01-05 00:00 :00 No [id number] 10mg Take 1 tablet by mouth daily. [facility] ibuprofen 600 mg tablet 2019-03 00:00: 00 04-02 00:00 :00 No [id number] 600mg Take 1 tablet by mouth every 8 (eight) hours as needed for Pain (scale 4-6) (headache) . [facility] fluticasone propionate 50 mcg/actuati on nasal spray 2019-03 2 00:00: 00 04-02 00:00 :00 No [id number] 1{spray } Use 1 [place] in each nostril daily. [facility] ibuprofen 600 mg tablet 2019-03 2 00:00: 00 04-02 00:00 :00 No [id number] 600mg Take 1 tablet by mouth every 8 (eight) hours as needed for Pain (scale 4-6) (headache) . [facility] fluticasone propionate 50 mcg/actuati on nasal spray 2019-03 2 00:00: 00 04-02 00:00 :00 No [id number] 1{spray } Use 1 [place] in each nostril daily. [facility] fluticasone propionate 50 mcg/actuati on nasal spray 2019-03 2 00:00: 00 04-02 00:00 :00 No [id number] 1{spray } Use 1 [place] in each nostril daily. [facility] ibuprofen 600 mg tablet 2019-03 2 00:00: 00 04-02 00:00 :00 No [id number] 600mg Take 1 tablet by mouth every 8 (eight) hours as needed for Pain (scale 4-6) (headache) . [facility] fluticasone propionate 50 mcg/actuati on nasal spray 2019-03 2 00:00: 00 04-02 00:00 :00 No [id number] 1{spray } Use 1 [place] in each nostril daily. [facility] ibuprofen 600 mg tablet 2019-03 2 00:00: 00 04-02 00:00 :00 No [id number] 600mg Take 1 tablet by mouth every 8 (eight) hours as needed for Pain (scale 4-6) (headache) . [facility] fluticasone propionate 50 mcg/actuati on nasal spray 2019-03 2 00:00: 00 04-02 00:00 :00 No [id number] 1{spray } Use 1 [place] in each nostril daily. [facility] ibuprofen 600 mg tablet 2019-03 00:00: 04-02 00:00 :00 No [id number] 600mg Take 1 tablet by mouth every 8 (eight) hours as needed for Pain (scale 4-6) (headache) . [facility] fluticasone propionate 50 mcg/actuati on nasal spray 2019-03 00:00: 04-02 00:00 :00 No [id number] 1{spray } Use 1 [place] in each nostril daily. [facility] ibuprofen 600 mg tablet 2019-03 00:00: 00 04-02 00:00 :00 No [id number] 600mg Take 1 tablet by mouth every 8 (eight) hours as needed for Pain (scale 4-6) (headache) . [facility] fluticasone propionate 50 mcg/actuati on nasal spray 2019-03 00:00: 00 04-02 00:00 :00 No [id number] 1{spray } Use 1 [place] in each nostril daily. [facility] etonogestre L (NEXPLANON) implant 68 mg 2019-03 22:45: 00 01-29 21:43 :00 No 68mg [facility] etonogestre L (NEXPLANON) implant 68 mg 2019-03 22:45: 00 01-29 21:43 :00 No 68mg 68 mg, Subdermal, ONCE NOW, 1 dose, 01/30/20 at 1645, Routine
Use approved by: INTERIOR DESIGN INSTRUCTOR [facility] etonogestre L (NEXPLANON) implant 68 mg 2019-03 22:45: 00 01-29 21:43 :00 No 68mg [facility] etonogestre L (NEXPLANON) implant 68 mg 2019-03 22:45: 00 01-29 21:43 :00 No 68mg 68 mg, Subdermal, ONCE NOW, 1 dose, 01/30/20 at 1645, Routine
Use approved by: INTERIOR DESIGN INSTRUCTOR [facility] topiramate (TOPAMAX) 25 mg tablet 2019-0 22 00:00: 00 Yes [id number] 25mg Take 1 tablet by mouth 2 (two) times daily. [facility] topiramate (TOPAMAX) 25 mg tablet 2019-0 22 00:00: 00 Yes [id number] 25mg Take 1 tablet by mouth 2 (two) times daily. [facility] topiramate (TOPAMAX) 25 mg tablet 2019-0 10-11 00:00: 00 Yes [id number] 25mg Take 1 tablet by mouth 2 (two) times daily. [facility] topiramate (TOPAMAX) 25 mg tablet 2019-0 10-11 00:00: 00 Yes [id number] 25mg Take 1 tablet by mouth 2 (two) times daily. [facility] topiramate (TOPAMAX) 25 mg tablet 2019-0 10-11 00:00: 00 Yes [id number] 25mg Take 1 tablet by mouth 2 (two) times daily. [facility] topiramate (TOPAMAX) 25 mg tablet 2019-0 10-11 00:00: 00 Yes [id number] 25mg Take 1 tablet by mouth 2 (two) times daily. [facility] topiramate (TOPAMAX) 25 mg tablet 2019-0 22 00:00: 00 Yes [id number] 25mg Take 1 tablet by mouth 2 (two) times daily. [facility] topiramate (TOPAMAX) 25 mg tablet 2019-0 10-11 00:00: 00 Yes [id number] 25mg Take 1 tablet by mouth 2 (two) times daily. [facility] topiramate (TOPAMAX) 25 mg tablet 2019-0 22 00:00: 00 Yes [id number] 25mg Take 1 tablet by mouth 2 (two) times daily. [facility] topiramate (TOPAMAX) 25 mg tablet 2019-0 -22 00:00: 00 Yes [id number] 25mg Take 1 tablet by mouth 2 (two) times daily. [facility] topiramate (TOPAMAX) 25 mg tablet 2019-0 22 00:00: 00 02-23 00:00 :00 No [id number] 25mg Take 1 tablet by mouth 2 (two) times daily. [facility] topiramate (TOPAMAX) 25 mg tablet 2019-0 7-22 00:00: 00 02-23 00:00 :00 No [id number] 25mg Take 1 tablet by mouth 2 (two) times daily. [facility] topiramate (TOPAMAX) 25 mg tablet 2019-0 7-16 20:30: 10-05 00:00 :00 No 25mg Take 25 mg by mouth. [facility] topiramate (TOPAMAX) 25 mg tablet 2019-0 7-16 20:30: 10-05 00:00 :00 No 25mg Take 25 mg by mouth. [facility] topiramate (TOPAMAX) 25 mg tablet 2019-0 -16 00:00: 00 Yes 25mg Take 1 tablet by mouth 2 (two) times daily. [facility] omeprazole 20 mg capsule 2019-0 7-16 00:00: 00 Yes [id number] 20mg Take 1 capsule by mouth daily. [facility] topiramate (TOPAMAX) 25 mg tablet 2019-0 -16 00:00: 00 Yes 25mg Take 1 tablet by mouth 2 (two) times daily. [facility] omeprazole 20 mg capsule 2020-0 7-16 00:00: 00 Yes [id number] 20mg Take 1 capsule by mouth daily. [facility] topiramate (TOPAMAX) 25 mg tablet 2019-0 7-16 00:00: 00 Yes 25mg Take 1 tablet by mouth 2 (two) times daily. [facility] omeprazole 20 mg capsule 2020-0 7-16 00:00: 00 Yes [id number] 20mg Take 1 capsule by mouth daily. [facility] omeprazole 20 mg capsule 2020-0 7-16 00:00: 00 Yes [id number] 20mg Take 1 capsule by mouth daily. [facility] omeprazole 20 mg capsule 2020-0 7-16 00:00: 00 Yes [id number] 20mg Take 1 capsule by mouth daily. [facility] omeprazole 20 mg capsule 2020-0 7-16 00:00: 00 Yes [id number] 20mg Take 1 capsule by mouth daily. [facility] omeprazole 20 mg capsule 2020-0 7-16 00:00: 00 Yes [id number] 20mg Take 1 capsule by mouth daily. [facility] omeprazole 20 mg capsule 2020-0 7-16 00:00: 00 Yes [id number] 20mg Take 1 capsule by mouth daily. [facility] omeprazole 20 mg capsule 2020-0 7-16 00:00: 00 Yes [id number] 20mg Take 1 capsule by mouth daily. [facility] omeprazole 20 mg capsule 2020-0 7-16 00:00: 00 Yes [id number] 20mg Take 1 capsule by mouth daily. [facility] omeprazole 20 mg capsule 2020-0 7-16 00:00: 00 Yes [id number] 20mg Take 1 capsule by mouth daily. [facility] omeprazole 20 mg capsule 2020-0 7-16 00:00: 00 Yes [id number] 20mg Take 1 capsule by mouth daily. [facility] omeprazole 20 mg capsule 2020-0 7-16 00:00: 00 Yes [id number] 20mg Take 1 capsule by mouth daily. [facility] omeprazole 20 mg capsule 2020-0 7-16 00:00: 00 Yes [id number] 20mg Take 1 capsule by mouth daily. [facility] omeprazole 20 mg capsule 2020-0 7-16 00:00: 00 Yes [id number] 20mg Take 1 capsule by mouth daily. [facility] omeprazole 20 mg capsule 2020-0 7-16 00:00: 00 Yes [id number] 20mg Take 1 capsule by mouth daily. [facility] omeprazole 20 mg capsule 2020-0 7-16 00:00: 00 Yes [id number] 20mg Take 1 capsule by mouth daily. [facility] omeprazole 20 mg capsule 2020-0 7-16 00:00: 00 2020- 12-04 00:00 :00 No [id number] 20mg Take 1 capsule by mouth daily. [facility] omeprazole 20 mg capsule 2020-0 7-16 00:00: 00 02-23 00:00 :00 No [id number] 20mg Take 1 capsule by mouth daily. [facility] topiramate (TOPAMAX) 25 mg tablet 10-05 00:00: 00 10-11 00:00 :00 No 25mg Take 1 tablet by mouth 2 (two) times daily. [facility] topiramate (TOPAMAX) 25 mg tablet 10-05 00:00: 10-11 00:00 :00 No 25mg Take 1 tablet by mouth 2 (two) times daily. [facility] topiramate (TOPAMAX) 25 mg tablet 10-05 00:00: 10-11 00:00 :00 No 25mg Take 1 tablet by mouth 2 (two) times daily. [facility] topiramate (TOPAMAX) 25 mg tablet 10-05 00:00: 10-11 00:00 :00 No 25mg Take 1 tablet by mouth 2 (two) times daily. [facility] topiramate (TOPAMAX) 25 mg tablet 10-05 00:00: 10-11 00:00 :00 No 25mg Take 1 tablet by mouth 2 (two) times daily. [facility] meclizine 25 mg tablet 09-26 00:00: 00 Yes 25mg Take 25 mg by mouth as needed. [facility] meclizine 25 mg tablet 09-26 00:00: 00 Yes 25mg Take 25 mg by mouth as needed. [facility] meclizine 25 mg tablet 09-26 00:00: 00 Yes 25mg Take 25 mg by mouth as needed. [facility] meclizine 25 mg tablet 09-26 00:00: 00 Yes 25mg Take 25 mg by mouth as needed. [facility] meclizine 25 mg tablet 09-26 00:00: 00 Yes 25mg Take 25 mg by mouth as needed. [facility] meclizine 25 mg tablet 09-26 00:00: 00 Yes 25mg Take 25 mg by mouth as needed. [facility] meclizine 25 mg tablet 09-26 00:00: 00 Yes 25mg Take 25 mg by mouth as needed. [facility] meclizine 25 mg tablet 09-26 00:00: 00 Yes 25mg Take 25 mg by mouth as needed. [facility] meclizine 25 mg tablet 09-26 00:00: 00 Yes 25mg Take 25 mg by mouth as needed. [facility] meclizine 25 mg tablet 09-26 00:00: 00 Yes 25mg Take 25 mg by mouth as needed. [facility]26 00:00: 00 Yes 25mg Take 25 mg by mouth as needed. [facility] mg tablet 09-26 00:00: 00 Yes 25mg Take 25 mg by mouth as needed. [facility] mg tablet 09-26 00:00: 00 Yes 25mg Take 25 mg by mouth as needed. [facility] [facility] meclizine 25 mg tablet 09-26 00:00: 00 Yes 25mg Take 25 mg by mouth as needed. [facility] meclizine 25 mg tablet 09-26 00:00: 00 Yes 25mg Take 25 mg by mouth as needed. [facility] mg tablet 09-26 00:00: 00 Yes 25mg Take 25 mg by mouth as needed. [facility] 25 mg tablet 09-26 00:00: 00 Yes 25mg Take 25 mg by mouth as needed. [facility] 25 mg tablet 09-26 00:00: 00 02-23 00:00 :00 No 25mg Take 25 mg by mouth as needed. [facility] meclizine 25 mg tablet 09-26 00:00: 00 02-23 00:00 :00 No 25mg Take 25 mg by mouth as needed. [facility] Nitrofurant oin&Nit. Macrocryst (MACROBID) 100 mg capsule 0 18 00:00: 00 Yes [id number] 100mg Take 1 capsule by mouth 2 (two) times daily. [facility] Nitrofurant oin&Nit. Macrocryst (MACROBID) 100 mg capsule 0 18 00:00: 00 Yes [id number] 100mg Take 1 capsule by mouth 2 (two) times daily. [facility] Nitrofurant oin&Nit. Macrocryst (MACROBID) 100 mg capsule 18 00:00: 00 Yes [id number] 100mg Take 1 capsule by mouth 2 (two) times daily. [facility] Nitrofurant oin&Nit. Macrocryst (MACROBID) 100 mg capsule 18 00:00: 00 10-05 00:00 :00 No [id number] 100mg Take 1 capsule by mouth 2 (two) times daily. [facility] Nitrofurant oin&Nit. Macrocryst (MACROBID) 100 mg capsule 18 00:00: 00 10-05 00:00 :00 No [id number] 100mg Take 1 capsule by mouth 2 (two) times daily. [facility] etonogestre l (NEXPLANON) implant 68 mg 2020-0 5-14 20:45: 00 08-03 19:36 :00 No 68mg [facility] etonogestre l (NEXPLANON) implant 68 mg 2020-0 5-14 20:45: 00 08-03 19:36 :00 No 68mg 68 mg, Subdermal, ONCE NOW, 1 dose, [facility] 08/04/19 at 1545, Routine
Use approved by: [employer] [facility] etonogestre l (NEXPLANON) implant 68 mg 2020-0 5-14 20:45: 00 08-03 19:36 :00 No 68mg [facility] etonogestre l (NEXPLANON) implant 68 mg 2020-0 5-14 20:45: 00 08-03 19:36 :00 No 68mg 68 mg, Subdermal, ONCE NOW, 1 dose, [facility] 08/04/19 at 1545, Routine
Use approved by: [employer] [facility] norelgestro min-ethinyl estradiol 150-35 mcg/24 hr patch 06-14 00:00: 00 Yes [id number] 1{patch } Apply 1 Patch to skin weekly. [facility] norelgestro min-ethinyl estradiol 150-35 mcg/24 hr patch 06-14 00:00: 00 Yes [id number] 1{patch } Apply 1 Patch to skin weekly. [facility] norelgestro min-ethinyl estradiol 150-35 mcg/24 hr patch 06-14 00:00: 00 Yes [id number] 1{patch } Apply 1 Patch to skin weekly. [facility] norelgestro min-ethinyl estradiol 150-35 mcg/24 hr patch 06-14 00:00: 00 Yes [id number] 1{patch } Apply 1 Patch to skin weekly. [facility] norelgestro min-ethinyl estradiol 150-35 mcg/24 hr patch 06-14 00:00: 00 Yes [id number] 1{patch } Apply 1 Patch to skin weekly. [facility] norelgestro min-ethinyl estradiol 150-35 mcg/24 hr patch 06-14 00:00: 00 08-03 00:00 :00 No [id number] 1{patch } Apply 1 Patch to skin weekly. [facility] norelgestro min-ethinyl estradiol 150-35 mcg/24 hr patch 06-14 00:00: 00 08-03 00:00 :00 No [id number] 1{patch } Apply 1 Patch to skin weekly. [facility] ibuprofen 600 mg tablet 05-22 00:00: 00 Yes [id number] 600mg Take 1 tablet by mouth every 8 (eight) hours as needed for Pain (scale 4-6) (headache) . [facility] ibuprofen 600 mg tablet 2020-0 05-22 00:00: 00 Yes [id number] 600mg Take 1 tablet by mouth every 8 (eight) hours as needed for Pain (scale 4-6) (headache) . [facility] ibuprofen 600 mg tablet 2020-0 05-22 00:00: 00 Yes [id number] 600mg Take 1 tablet by mouth every 8 (eight) hours as needed for Pain (scale 4-6) (headache) . [facility] ibuprofen 600 mg tablet 2020-0 05-22 00:00: 00 Yes [id number] 600mg Take 1 tablet by mouth every 8 (eight) hours as needed for Pain (scale 4-6) (headache) . [facility] ibuprofen 600 mg tablet 2020-0 05-22 00:00: 00 Yes [id number] 600mg Take 1 tablet by mouth every 8 (eight) hours as needed for Pain (scale 4-6) (headache) . [facility] ibuprofen 600 mg tablet 2019-0 05-22 00:00: 00 Yes [id number] 600mg Take 1 tablet by mouth every 8 (eight) hours as needed for Pain (scale 4-6) (headache) . [facility] ibuprofen 600 mg tablet 2019-0 05-22 00:00: 00 Yes [id number] 600mg Take 1 tablet by mouth every 8 (eight) hours as needed for Pain (scale 4-6) (headache) . [facility] ibuprofen 600 mg tablet 2019-0 05-22 00:00: 00 Yes [id number] 600mg Take 1 tablet by mouth every 8 (eight) hours as needed for Pain (scale 4-6) (headache) . [facility] ibuprofen 600 mg tablet 0 05-22 00:00: 00 Yes [id number] 600mg Take 1 tablet by mouth every 8 (eight) hours as needed for Pain (scale 4-6) (headache) . [facility] ibuprofen 600 mg tablet 2019-0 05-22 00:00: 00 Yes [id number] 600mg Take 1 tablet by mouth every 8 (eight) hours as needed for Pain (scale 4-6) (headache) . [facility] ibuprofen 600 mg tablet 2020-0 05-22 00:00: 00 Yes [id number] 600mg Take 1 tablet by mouth every 8 (eight) hours as needed for Pain (scale 4-6) (headache) . [facility] ibuprofen 600 mg tablet 2020-0 302 00:00: 00 Yes [id number] 600mg Take 1 tablet by mouth every 8 (eight) hours as needed for Pain (scale 4-6) (headache) . [facility] ibuprofen 600 mg tablet 2020-0 3 00:00: 00 Yes [id number] 600mg Take 1 tablet by mouth every 8 (eight) hours as needed for Pain (scale 4-6) (headache) . [facility] ibuprofen 600 mg tablet 2020-0 3- 00:00: 00 Yes [id number] 600mg Take 1 tablet by mouth every 8 (eight) hours as needed for Pain (scale 4-6) (headache) . [facility] ibuprofen 600 mg tablet 2020-0 05-22 00:00: 00 Yes [id number] 600mg Take 1 tablet by mouth every 8 (eight) hours as needed for Pain (scale 4-6) (headache) . [facility] ibuprofen 600 mg tablet 2019-0 05-22 00:00: 00 Yes [id number] 600mg Take 1 tablet by mouth every 8 (eight) hours as needed for Pain (scale 4-6) (headache) . [facility] ibuprofen 600 mg tablet 2020-0 05-22 00:00: 00 Yes [id number] 600mg Take 1 tablet by mouth every 8 (eight) hours as needed for Pain (scale 4-6) (headache) . [facility] ibuprofen 600 mg tablet 2020-0 3 00:00: 00 Yes [id number] 600mg Take 1 tablet by mouth every 8 (eight) hours as needed for Pain (scale 4-6) (headache) . [facility] ibuprofen 600 mg tablet 2020-0 3-02 00:00: 00 Yes [id number] 600mg Take 1 tablet by mouth every 8 (eight) hours as needed for Pain (scale 4-6) (headache) . [facility] ibuprofen 600 mg tablet 2020-0 3-02 00:00: 00 Yes [id number] 600mg Take 1 tablet by mouth every 8 (eight) hours as needed for Pain (scale 4-6) (headache) . [facility] ibuprofen 600 mg tablet 2020-0 05-22 00:00: 00 Yes [id number] 600mg Take 1 tablet by mouth every 8 (eight) hours as needed for Pain (scale 4-6) (headache) . [facility] ibuprofen 600 mg tablet 2019-0 05-22 00:00: 00 Yes [id number] 600mg Take 1 tablet by mouth every 8 (eight) hours as needed for Pain (scale 4-6) (headache) . [facility] ibuprofen 600 mg tablet 2020-0 05-22 00:00: 00 Yes [id number] 600mg Take 1 tablet by mouth every 8 (eight) hours as needed for Pain (scale 4-6) (headache) . [facility] ibuprofen 600 mg tablet 2019-0 05-22 00:00: 00 Yes [id number] 600mg Take 1 tablet by mouth every 8 (eight) hours as needed for Pain (scale 4-6) (headache) . [facility] ibuprofen 600 mg tablet 2019-0 05-22 00:00: 00 Yes [id number] 600mg Take 1 tablet by mouth every 8 (eight) hours as needed for Pain (scale 4-6) (headache) . [facility] ibuprofen 600 mg tablet 0 05-22 00:00: 00 Yes [id number] 600mg Take 1 tablet by mouth every 8 (eight) hours as needed for Pain (scale 4-6) (headache) . [facility] ibuprofen 600 mg tablet 2019-0 05-22 00:00: 00 Yes [id number] 600mg Take 1 tablet by mouth every 8 (eight) hours as needed for Pain (scale 4-6) (headache) . [facility] ibuprofen 600 mg tablet 2019-0 05-22 00:00: 00 Yes [id number] 600mg Take 1 tablet by mouth every 8 (eight) hours as needed for Pain (scale 4-6) (headache) . [facility] ibuprofen 600 mg tablet 2020-0 05-22 00:00: 00 Yes [id number] 600mg Take 1 tablet by mouth every 8 (eight) hours as needed for Pain (scale 4-6) (headache) . [facility] ibuprofen 600 mg tablet 2020-0 3 00:00: 00 Yes [id number] 600mg Take 1 tablet by mouth every 8 (eight) hours as needed for Pain (scale 4-6) (headache) . [facility] ibuprofen 600 mg tablet 3 00:00: 00 Yes [id number] 600mg Take 1 tablet by mouth every 8 (eight) hours as needed for Pain (scale 4-6) (headache) . [facility] ibuprofen 600 mg tablet 05-22 00:00: 02-23 00:00 :00 No [id number] 600mg Take 1 tablet by mouth every 8 (eight) hours as needed for Pain (scale 4-6) (headache) . [facility] ibuprofen 600 mg tablet 05-22 00:00: 02-23 00:00 :00 No [id number] 600mg Take 1 tablet by mouth every 8 (eight) hours as needed for Pain (scale 4-6) (headache) . [facility] medroxyPROG ESTERone (DEPO-PROVE RA) injection 150 mg 05-16 23:00: 05-16 21:50 :00 No 150mg [facility] medroxyPROG ESTERone (DEPO-PROVE RA) injection 150 mg 24 23:00: 05-16 21:50 :00 No 150mg 150 mg, Intramuscu lar, ONCE, 1 dose, Thu05/16/19 at 1700, Routine [facility] oxybutynin chloride 5 mg tablet 2-11 00:00: 00 Yes [id number] 5mg Take 1 tablet by mouth 2 (two) times daily. [facility] oxybutynin chloride 5 mg tablet 0 2-11 00:00: 00 Yes [id number] 5mg Take 1 tablet by mouth 2 (two) times daily. [facility] oxybutynin chloride 5 mg tablet 0 2-11 00:00: 00 Yes [id number] 5mg Take 1 tablet by mouth 2 (two) times daily. [facility] oxybutynin chloride 5 mg tablet 2019-0 2-11 00:00: 00 Yes [id number] 5mg Take 1 tablet by mouth 2 (two) times daily. [facility] oxybutynin chloride 5 mg tablet 2020-0 2-11 00:00: 00 Yes [id number] 5mg Take 1 tablet by mouth 2 (two) times daily. [facility] oxybutynin chloride 5 mg tablet 2020-0 2-11 00:00: 00 Yes [id number] 5mg Take 1 tablet by mouth 2 (two) times daily. [facility] it[facility] oxybutynin chloride 5 mg tablet 2020-0 2-11 00:00: 00 Yes [id number] 5mg Take 1 tablet by mouth 2 (two) times daily. [facility] it[facility] oxybutynin chloride 5 mg tablet 2020-0 2-11 00:00: 00 Yes [id number] 5mg Take 1 tablet by mouth 2 (two) times daily. [facility] oxybutynin chloride 5 mg tablet 2020-0 2-11 00:00: 00 Yes [id number] 5mg Take 1 tablet by mouth 2 (two) times daily. [facility] oxybutynin chloride 5 mg tablet 2020-0 2-11 00:00: 00 Yes [id number] 5mg Take 1 tablet by mouth 2 (two) times daily. [facility] oxybutynin chloride 5 mg tablet 2020-0 2-11 00:00: 00 Yes [id number] 5mg Take 1 tablet by mouth 2 (two) times daily. [facility] oxybutynin chloride 5 mg tablet 2020-0 2-11 00:00: 00 Yes [id number] 5mg Take 1 tablet by mouth 2 (two) times daily. [facility] oxybutynin chloride 5 mg tablet 2020-0 2-11 00:00: 00 Yes [id number] 5mg Take 1 tablet by mouth 2 (two) times daily. [facility] oxybutynin chloride 5 mg tablet 2020-0 2-11 00:00: 00 Yes [id number] 5mg Take 1 tablet by mouth 2 (two) times daily. [facility] oxybutynin chloride 5 mg tablet 2020-0 2-11 00:00: 00 Yes [id number] 5mg Take 1 tablet by mouth 2 (two) times daily. [facility] oxybutynin chloride 5 mg tablet 2020-0 2-11 00:00: 00 Yes [id number] 5mg Take 1 tablet by mouth 2 (two) times daily. [facility] oxybutynin chloride 5 mg tablet 05-03 00:00: 00 Yes [id number] 5mg Take 1 tablet by mouth 2 (two) times daily. [facility] oxybutynin chloride 5 mg tablet 05-03 00:00: 00 10-05 00:00 :00 No [id number] 5mg Take 1 tablet by mouth 2 (two) times daily. [facility] oxybutynin chloride 5 mg tablet 05-03 00:00: 00 10-05 00:00 :00 No [id number] 5mg Take 1 tablet by mouth 2 (two) times daily. [facility] polyethylen e glycol (MIRALAX) 17 gram/dose powder 2018-03 00:00: 00 Yes [id number] 1/2 cap twice daily [facility] polyethylen e glycol (MIRALAX) 17 gram/dose powder 2018-03 00:00: 00 Yes [id number] 1/2 cap twice daily [facility] polyethylen e glycol (MIRALAX) 17 gram/dose powder 2018-03 00:00: 00 Yes [id number] 1/2 cap twice daily [facility] polyethylen e glycol (MIRALAX) 17 gram/dose powder 2018-03 00:00: 00 Yes [id number] 1/2 cap twice daily [facility] polyethylen e glycol (MIRALAX) 17 gram/dose powder 2018-03 00:00: 00 Yes [id number] 1/2 cap twice daily [facility] polyethylen e glycol (MIRALAX) 17 gram/dose powder 2018-03 00:00: 00 Yes [id number] 1/2 cap twice daily [facility] it[facility] polyethylen e glycol (MIRALAX) 17 gram/dose powder 2018-03 00:00: 00 Yes [id number] 1/2 cap twice daily [facility] polyethylen e glycol (MIRALAX) 17 gram/dose powder 2018-03 00:00: 00 Yes [id number] 1/2 cap twice daily [facility] polyethylen e glycol (MIRALAX) 17 gram/dose powder 2018-03 00:00: 00 Yes [id number] 1/2 cap twice daily [facility] polyethylen e glycol (MIRALAX) 17 gram/dose powder 2018-03 00:00: 00 Yes [id number] 1/2 cap twice daily [facility] polyethylen e glycol (MIRALAX) 17 gram/dose powder 2018-03 00:00: 00 Yes [id number] 1/2 cap twice daily [facility] polyethylen e glycol (MIRALAX) 17 gram/dose powder 2018-03 00:00: 00 Yes [id number] 1/2 cap twice daily [facility] polyethylen e glycol (MIRALAX) 17 gram/dose powder 2018-03 00:00: 00 Yes [id number] 1/2 cap twice daily [facility] polyethylen e glycol (MIRALAX) 17 gram/dose powder 2018-03 00:00: 00 Yes [id number] 1/2 cap twice daily [facility] polyethylen e glycol (MIRALAX) 17 gram/dose powder 2018-03 00:00: 00 Yes [id number] 1/2 cap twice daily [facility] polyethylen e glycol (MIRALAX) 17 gram/dose powder 2018-03 00:00: 00 Yes [id number] 1/2 cap twice daily [facility] polyethylen e glycol (MIRALAX) 17 gram/dose powder 2018-03 00:00: 00 Yes [id number] 1/2 cap twice daily [facility] polyethylen e glycol (MIRALAX) 17 gram/dose powder 2018-03 00:00: 00 Yes [id number] 1/2 cap twice daily [facility] polyethylen e glycol (MIRALAX) 17 gram/dose powder 2018-03 00:00: 00 Yes [id number] 1/2 cap twice daily [facility] polyethylen e glycol (MIRALAX) 17 gram/dose powder 2018-03 00:00: 00 Yes [id number] 1/2 cap twice daily [facility] polyethylen e glycol (MIRALAX) 17 gram/dose powder 2018-03 00:00: 00 Yes [id number] 1/2 cap twice daily [facility] polyethylen e glycol (MIRALAX) 17 gram/dose powder 2018-03 00:00: 00 Yes [id number] 1/2 cap twice daily [facility] polyethylen e glycol (MIRALAX) 17 gram/dose powder 2018-03 00:00: 00 Yes [id number] 1/2 cap twice daily [facility] polyethylen e glycol (MIRALAX) 17 gram/dose powder 2018-03 00:00: 00 Yes [id number] 1/2 cap twice daily [facility] polyethylen e glycol (MIRALAX) 17 gram/dose powder 2018-03 00:00: 00 Yes [id number] 1/2 cap twice daily [facility] polyethylen e glycol (MIRALAX) 17 gram/dose powder 2018-03 00:00: 00 Yes [id number] 1/2 cap twice daily [facility] polyethylen e glycol (MIRALAX) 17 gram/dose powder 2018-03 00:00: 00 Yes [id number] 1/2 cap twice daily [facility] polyethylen e glycol (MIRALAX) 17 gram/dose powder 2018-03 00:00: 00 Yes [id number] 1/2 cap twice daily [facility] polyethylen e glycol (MIRALAX) 17 gram/dose powder 2018-03 00:00: 00 Yes [id number] 1/2 cap twice daily [facility] polyethylen e glycol (MIRALAX) 17 gram/dose powder 2018-03 00:00: 00 Yes [id number] 1/2 cap twice daily [facility] polyethylen e glycol (MIRALAX) 17 gram/dose powder 2018-03 00:00: 00 Yes [id number] 1/2 cap twice daily [facility] polyethylen e glycol (MIRALAX) 17 gram/dose powder 2018-03 00:00: 00 Yes [id number] 1/2 cap twice daily [facility] polyethylen e glycol (MIRALAX) 17 gram/dose powder 2018-03 00:00: 00 Yes [id number] 1/2 cap twice daily [facility] polyethylen e glycol (MIRALAX) 17 gram/dose powder 2018-03 00:00: 00 Yes [id number] 1/2 cap twice daily [facility] polyethylen e glycol (MIRALAX) 17 gram/dose powder 2018-03 00:00: 00 Yes [id number] 1/2 cap twice daily [facility] polyethylen e glycol (MIRALAX) 17 gram/dose powder 2018-03 00:00: 00 Yes [id number] 1/2 cap twice daily [facility] polyethylen e glycol (MIRALAX) 17 gram/dose powder 2018-03 00:00: 00 Yes [id number] 1/2 cap twice daily [facility] polyethylen e glycol (MIRALAX) 17 gram/dose powder 2018-03 00:00: 00 Yes [id number] 1/2 cap twice daily [facility] polyethylen e glycol (MIRALAX) 17 gram/dose powder 2018-03 00:00: 00 Yes [id number] 1/2 cap twice daily [facility] polyethylen e glycol (MIRALAX) 17 gram/dose powder 2018-03 00:00: 00 Yes [id number] 1/2 cap twice daily [facility] polyethylen e glycol (MIRALAX) 17 gram/dose powder 2018-03 00:00: 00 04-02 00:00 :00 No [id number] 1/2 cap twice daily [facility] polyethylen e glycol (MIRALAX) 17 gram/dose powder 2018-03 00:00: 00 04-02 00:00 :00 No [id number] 1/2 cap twice daily [facility] polyethylen e glycol (MIRALAX) 17 gram/dose powder 2018-03 00:00: 00 04-02 00:00 :00 No [id number] 1/2 cap twice daily [facility] polyethylen e glycol (MIRALAX) 17 gram/dose powder 2018-03 00:00: 00 04-02 00:00 :00 No [id number] 1/2 cap twice daily [facility] polyethylen e glycol (MIRALAX) 17 gram/dose powder 2018-03 00:00: 00 04-02 00:00 :00 No [id number] 1/2 cap twice daily [facility] polyethylen e glycol (MIRALAX) 17 gram/dose powder 2018-03 00:00: 00 04-02 00:00 :00 No [id number] 1/2 cap twice daily [facility] medroxyPROG ESTERone (DEPO-PROVE RA) injection 150 mg 11-11 15:00: 11-11 13:54 :00 No [id number] 150mg [facility] medroxyPROG ESTERone (DEPO-PROVE RA) injection 150 mg 11-11 15:00: 00 11-11 13:54 :00 No [id number] 150mg 150 mg, Intramuscu lar, ONCE, 1 dose, Gladys 11/11/18 at 1000, Routine [facility] medroxyPROG ESTERone (DEPO-PROVE RA) injection 150 mg 11-11 15:00: 11-11 13:54 :00 No [id number] 150mg [facility] medroxyPROG ESTERone (DEPO-PROVE RA) injection 150 mg 11-11 15:00: 00 11-11 13:54 :00 No [id number] 150mg 150 mg, Intramuscu lar, ONCE, 1 dose, Gladys 11/11/18 at 1000, Routine [facility] zonisamide 100 mg capsule 4-12 00:00: 00 Yes [id number] 200mg Take 2 capsules by mouth daily. [facility] zonisamide 100 mg capsule 0 12 00:00: 00 Yes [id number] 200mg Take 2 capsules by mouth daily. [facility] zonisamide 100 mg capsule 0 12 00:00: 00 Yes [id number] 200mg Take 2 capsules by mouth daily. [facility] zonisamide 100 mg capsule 0 12 00:00: 00 Yes [id number] 200mg Take 2 capsules by mouth daily. [facility] zonisamide 100 mg capsule 0 07-02 00:00: 00 Yes [id number] 200mg Take 2 capsules by mouth daily. [facility] zonisamide 100 mg capsule 0 07-02 00:00: 00 Yes [id number] 200mg Take 2 capsules by mouth daily. [facility] zonisamide 100 mg capsule 0 07-02 00:00: 00 Yes [id number] 200mg Take 2 capsules by mouth daily. [facility] zonisamide 100 mg capsule 0 07-02 00:00: 00 Yes [id number] 200mg Take 2 capsules by mouth daily. [facility] zonisamide 100 mg capsule 0 07-02 00:00: 00 Yes [id number] 200mg Take 2 capsules by mouth daily. [facility] zonisamide 100 mg capsule 0 07-02 00:00: 00 Yes [id number] 200mg Take 2 capsules by mouth daily. [facility] zonisamide 100 mg capsule 0 12 00:00: 00 Yes [id number] 200mg Take 2 capsules by mouth daily. [facility] zonisamide 100 mg capsule 0 12 00:00: 00 Yes [id number] 200mg Take 2 capsules by mouth daily. [facility] zonisamide 100 mg capsule 2018-0 12 00:00: 00 Yes [id number] 200mg Take 2 capsules by mouth daily. [facility] zonisamide 100 mg capsule 0 12 00:00: 00 Yes [id number] 200mg Take 2 capsules by mouth daily. [facility] zonisamide 100 mg capsule 12 00:00: 00 Yes [id number] 200mg Take 2 capsules by mouth daily. [facility] zonisamide 100 mg capsule 07-02 00:00: 00 05-03 00:00 :00 No [id number] 200mg Take 2 capsules by mouth daily. [facility] zonisamide 100 mg capsule 07-02 00:00: 05-03 00:00 :00 No [id number] 200mg Take 2 capsules by mouth daily. [facility] ity [facility] medroxyPROG ESTERone (DEPO-PROVE RA) injection 150 mg 2017-03 0 15:45: 00 Yes 150mg [facility] ity [facility] medroxyPROG ESTERone (DEPO-PROVE RA) injection 150 mg 2017-03 0 15:45: 00 Yes 150mg [facility] ity [facility] medroxyPROG ESTERone (DEPO-PROVE RA) injection 150 mg 2017-03 0 15:45: 00 Yes 150mg Univers ity of [facility] medroxyPROG ESTERone (DEPO-PROVE RA) injection 150 mg 2017-03 024 15:45: 00 Yes 150mg Univers ity [facility] medroxyPROG ESTERone (DEPO-PROVE RA) injection 150 mg 2017-03 024 15:45: 00 Yes 150mg [facility] ity [facility] medroxyPROG ESTERone (DEPO-PROVE RA) injection 150 mg 2017-03 0 15:45: 00 Yes 150mg Univers ity of [facility] medroxyPROG ESTERone (DEPO-PROVE RA) injection 150 mg 2017-03 024 15:45: 00 Yes 150mg Univers ity of [facility] medroxyPROG ESTERone (DEPO-PROVE RA) injection 150 mg 2017-03 024 15:45: 00 Yes 150mg Univers ity [facility] medroxyPROG ESTERone (DEPO-PROVE RA) injection 150 mg 2017-03 024 15:45: 00 Yes 150mg Univers ity of [facility] medroxyPROG ESTERone (DEPO-PROVE RA) injection 150 mg 2017-03 0 15:45: 00 Yes 150mg Univers ity of [facility] medroxyPROG ESTERone (DEPO-PROVE RA) injection 150 mg 2017-03 15:45: 00 Yes 150mg [facility] medroxyPROG ESTERone (DEPO-PROVE RA) injection 150 mg 2017-03 15:45: 00 Yes 150mg [facility] medroxyPROG ESTERone (DEPO-PROVE RA) injection 150 mg 2017-03 15:45: 00 Yes 150mg [facility] medroxyPROG ESTERone (DEPO-PROVE RA) injection 150 mg 2017-03 15:45: 00 Yes 150mg [facility] medroxyPROG ESTERone (DEPO-PROVE RA) injection 150 mg 2017-03 15:45: 00 Yes 150mg [facility] medroxyPROG ESTERone (DEPO-PROVE RA) injection 150 mg 2017-03 15:45: 00 Yes 150mg [facility] medroxyPROG ESTERone (DEPO-PROVE RA) injection 150 mg 2017-03 15:45: 00 Yes 150mg [facility] medroxyPROG ESTERone (DEPO-PROVE RA) injection 150 mg 2017-03 15:45: 00 Yes 150mg [facility] medroxyPROG ESTERone (DEPO-PROVE RA) injection 150 mg 2017-03 15:45: 00 Yes 150mg [facility] medroxyPROG ESTERone (DEPO-PROVE RA) injection 150 mg 2017-03 15:45: 00 Yes 150mg [facility] medroxyPROG ESTERone (DEPO-PROVE RA) injection 150 mg 2017-03 15:45: 00 Yes 150mg [facility] medroxyPROG ESTERone (DEPO-PROVE RA) injection 150 mg 2017-03 15:45: 00 Yes 150mg [facility] medroxyPROG ESTERone (DEPO-PROVE RA) injection 150 mg 2017-03 15:45: 00 06-14 15:23 :36 No 150mg [facility] Vital Signs Vital Name Observation Time Observation Value Comments S ourirvin Systolic blood pressure 2022-11-13 14:04:00 134 mm[Hg] [facility] Diastolic blood pressure 2022-11-13 14:04:00 76 mm[Hg] [facility] Heart rate 2022-11-13 14:04:00 76 /min Unive [facility] Body temperature 2022-11-13 14:04:00 37.22 Cara [facility] Body height 2022-11-13 14:04:00 160 cm [facility] Body weight 2022-11-13 14:04:00 82.283 kg [facility] BMI 2022-11-13 14:04:00 32.13 kg/m2 [facility] Systolic blood pressure 2022-10-28 14:04:00 123 mm[Hg] [facility] Diastolic blood pressure 2022-10-28 14:04:00 83 mm[Hg] [facility] Heart rate 2022-10-28 14:04:00 68 /min Unive [facility] Body temperature 2022-10-28 14:04:00 36.94 Cara [facility] Respiratory rate 2022-10-28 14:04:00 18 /min [facility] Body height 2022-10-28 14:04:00 160 cm [facility] Body weight 2022-10-28 14:04:00 82.101 kg [facility] BMI 2022-10-28 14:04:00 32.06 kg/m2 [facility] Systolic blood pressure 2022-08-11 16:19:00 110 mm[Hg] [facility] Diastolic blood pressure 2022-08-11 16:19:00 77 mm[Hg] [facility] Heart rate 2022-08-11 16:19:00 89 /min Unive [facility] Body temperature 2022-08-11 16:19:00 37.33 Cara [facility] Respiratory rate 2022-08-11 16:19:00 20 /min [facility] Body height 2022-08-11 16:19:00 160 cm Univ [facility] Body weight 2022-08-11 16:19:00 78.075 kg Univ [facility] BMI 2022-08-11 16:19:00 30.49 kg/m2 [facility] Oxygen saturation in Arterial blood by Pulse oximetry 2022-08-11 16:19:00 98 /min [facility] Systolic blood pressure 2022-05-27 20:21:00 121 mm[Hg] [facility] Diastolic blood pressure 2022-05-27 20:21:00 69 mm[Hg] [facility] Heart rate 2022-05-27 20:21:00 72 /min Unive [facility] Body temperature 2022-05-27 20:21:00 37.11 Cara [facility] Respiratory rate 2022-05-27 20:21:00 17 /min [facility] Body height 2022-05-27 20:21:00 157.5 cm Univ [facility] Body weight 2022-05-27 20:21:00 84.55 kg [facility] BMI 2022-05-27 20:21:00 34.09 kg/m2 [facility] Systolic blood pressure 2022-02-05 19:09:00 137 mm[Hg] [facility] Diastolic blood pressure 2022-02-05 19:09:00 79 mm[Hg] [facility] Heart rate 2022-02-05 19:09:00 94 /min Unive [facility] Body temperature 2022-02-05 19:09:00 37.06 Cara [facility] Respiratory rate 2022-02-05 19:09:00 18 /min [facility] Body height 2022-02-05 19:09:00 157.5 cm [facility] Body weight 2022-02-05 19:09:00 84.732 kg [facility] BMI 2022-02-05 19:09:00 34.17 kg/m2 [facility] Systolic blood pressure 2022-01-31 15:02:00 122 mm[Hg] [facility] Diastolic blood pressure 2022-01-31 15:02:00 77 mm[Hg] [facility] Heart rate 2022-01-31 15:02:00 67 /min Un[facility] Body temperature 2022-01-31 15:02:00 37.11 Cara [facility] Body height 2022-01-31 15:02:00 157.5 cm [facility] Body weight 2022-01-31 15:02:00 82.555 kg [facility] BMI 2022-01-31 15:02:00 33.29 kg/m2 [facility] Systolic blood pressure 2022-01-02 14:12:00 109 mm[Hg] [facility] Diastolic blood pressure 2022-01-02 14:12:00 67 mm[Hg] [facility] Heart rate 2022-01-02 14:12:00 58 /min Unive [facility] Body temperature 2022-01-02 14:12:00 37.06 Cara [facility] Respiratory rate 2022-01-02 14:12:00 18 /min [facility] Body height 2022-01-02 14:12:00 157.5 cm [facility] Body weight 2022-01-02 14:12:00 80.74 kg [facility] BMI 2022-01-02 14:12:00 32.56 kg/m2 [facility] Systolic blood pressure 2021-01-06 02:00:00 149 mm[Hg] [facility] Diastolic blood pressure 2021-01-06 02:00:00 97 mm[Hg] [facility] Heart rate 2021-01-06 02:00:00 101 /min Unive [facility] Respiratory rate 2021-01-06 02:00:00 17 /min [facility] Oxygen saturation in Arterial blood by Pulse oximetry 2021-01-06 02:00:00 100 /min [facility] Body temperature 2021-01-06 01:46:00 36.06 Cara [facility] Body height 2021-01-06 01:46:00 157.5 cm [facility] Body weight 2021-01-06 01:46:00 81.647 kg [facility] BMI 2021-01-06 01:46:00 32.92 kg/m2 [facility] Body mass index (BMI) [Percentile] Per age and sex 2021-01-06 01:46:00 96.57 % [facility] Systolic blood pressure 2020-04-02 17:35:00 116 mm[Hg] [facility] Diastolic blood pressure 2020-04-02 17:35:00 72 mm[Hg] [facility] Heart rate 2020-04-02 16:53:00 73 /min [facility] Body temperature 2020-04-02 16:53:00 36.44 Cara [facility] Respiratory rate 2020-04-02 16:53:00 18 /min [facility] Body height 2020-04-02 16:53:00 159 cm [facility] Body weight 2020-04-02 16:53:00 82.101 kg [facility] BMI 2020-04-02 16:53:00 32.48 kg/m2 [facility] Oxygen saturation in Arterial blood by Pulse oximetry 2020-04-02 16:53:00 98 /min [facility] Systolic blood pressure 2020-04-02 17:35:00 116 mm[Hg] [facility] Diastolic blood pressure 2020-04-02 17:35:00 72 mm[Hg] [facility] Heart rate 2020-04-02 16:53:00 73 /min [facility] Body temperature 2020-04-02 16:53:00 36.44 Cara [facility] Respiratory rate 2020-04-02 16:53:00 18 /min [facility] Body height 2020-04-02 16:53:00 159 cm [facility] Body weight 2020-04-02 16:53:00 82.101 kg [facility] BMI 2020-04-02 16:53:00 32.48 kg/m2 [facility] Oxygen saturation in Arterial blood by Pulse oximetry 2020-04-02 16:53:00 98 /min [facility] Systolic blood pressure 2020-02-24 19:17:00 121 mm[Hg] [facility] Diastolic blood pressure 2020-02-24 19:17:00 77 mm[Hg] [facility] Heart rate 2020-02-24 19:16:00 84 /min Unive [facility] Body temperature 2020-02-24 19:16:00 36.56 Cara [facility] Respiratory rate 2020-02-24 19:16:00 18 /min [facility] Body weight 2020-02-24 19:16:00 83.598 kg [facility] Oxygen saturation in Arterial blood by Pulse oximetry 2020-02-24 19:16:00 100 /min [facility] Systolic blood pressure 2020-01-30 21:13:00 123 mm[Hg] [facility] Diastolic blood pressure 2020-01-30 21:13:00 70 mm[Hg] [facility] Heart rate 2020-01-30 21:13:00 83 /min Unive [facility] Body temperature 2020-01-30 21:13:00 37.11 Cara [facility] Respiratory rate 2020-01-30 21:13:00 18 /min [facility] Body height 2020-01-30 21:13:00 157.5 cm [facility] Body weight 2020-01-30 21:13:00 85.276 kg [facility] BMI 2020-01-30 21:13:00 34.39 kg/m2 [facility] Systolic blood pressure 2020-01-10 20:41:00 129 mm[Hg] [facility] Diastolic blood pressure 2020-01-10 20:41:00 72 mm[Hg] [facility] Heart rate 2020-01-10 20:41:00 98 /min Unive [facility] Body temperature 2020-01-10 20:41:00 36.72 Cara [facility] Respiratory rate 2020-01-10 20:41:00 18 /min [facility] Body height 2020-01-10 20:41:00 157.5 cm [facility] Body weight 2020-01-10 20:41:00 85.276 kg [facility] BMI 2020-01-10 20:41:00 34.39 kg/m2 [facility] Body temperature 2019-10-12 19:39:00 35.72 Cara [facility] Body height 2019-10-12 19:39:00 159 cm [facility] Body weight 2019-10-12 19:39:00 82.6 kg [facility] BMI 2019-10-12 19:39:00 32.67 kg/m2 [facility] Systolic blood pressure 2019-10-07 18:10:00 121 mm[Hg] [facility] Diastolic blood pressure 2019-10-07 18:10:00 79 mm[Hg] [facility] Heart rate 2019-10-07 18:10:00 77 /min [facility] Body temperature 2019-10-07 18:10:00 36.89 Cara [facility] Respiratory rate 2019-10-07 18:10:00 18 /min [facility] Body height 2019-10-07 18:10:00 157.5 cm [facility] Body weight 2019-10-07 18:10:00 81.647 kg [facility] BMI 2019-10-07 18:10:00 32.92 kg/m2 [facility] Systolic blood pressure 2019-10-06 20:18:00 123 mm[Hg] [facility] Diastolic blood pressure 2019-10-06 20:18:00 86 mm[Hg] [facility] Heart rate 2019-10-06 20:18:00 96 /min [facility] Body temperature 2019-10-06 20:18:00 36.78 Cara [facility] Respiratory rate 2019-10-06 20:18:00 16 /min [facility] Body height 2019-10-06 20:18:00 157.5 cm [facility] Body weight 2019-10-06 20:18:00 80.786 kg [facility] BMI 2019-10-06 20:18:00 32.57 kg/m2 [facility] Oxygen saturation in Arterial blood by Pulse oximetry 2019-10-06 20:18:00 98 /min [facility] Systolic blood pressure 2019-08-04 18:52:00 129 mm[Hg] [facility] Diastolic blood pressure 2019-08-04 18:52:00 78 mm[Hg] [facility] Heart rate 2019-08-04 18:52:00 86 /min Unive [facility] Body temperature 2019-08-04 18:52:00 37.22 Cara [facility] Respiratory rate 2019-08-04 18:52:00 18 /min [facility] Body height 2019-08-04 18:52:00 157.5 cm [facility] Body weight 2019-08-04 18:52:00 84.369 kg [facility] BMI 2019-08-04 18:52:00 34.02 kg/m2 [facility] Systolic blood pressure 2019-05-23 21:28:00 121 mm[Hg] [facility] Diastolic blood pressure 2019-05-23 21:28:00 77 mm[Hg] [facility] Heart rate 2019-05-23 21:28:00 80 /min Unive [facility] Body temperature 2019-05-23 21:28:00 37.39 Cara [facility] Respiratory rate 2019-05-23 21:28:00 18 /min [facility] Body height 2019-05-23 21:28:00 158.5 cm [facility] Body weight 2019-05-23 21:28:00 85.095 kg [facility] BMI 2019-05-23 21:28:00 33.87 kg/m2 [facility] Oxygen saturation in Arterial blood by Pulse oximetry 2019-05-23 21:28:00 100 /min [facility] Systolic blood pressure 2019-05-16 21:51:00 123 mm[Hg] [facility] Diastolic blood pressure 2019-05-16 21:51:00 73 mm[Hg] [facility] Heart rate 2019-05-16 21:51:00 72 /min Unive [facility] Body temperature 2019-05-16 21:51:00 36.78 Cara [facility] Respiratory rate 2019-05-16 21:51:00 18 /min [facility] Body height 2019-05-16 21:51:00 157.5 cm [facility] Body weight 2019-05-16 21:51:00 85.276 kg [facility] BMI 2019-05-16 21:51:00 34.39 kg/m2 [facility] Body temperature 2019-05-03 20:09:00 36.83 Cara [facility] Body height 2019-05-03 20:09:00 157.5 cm [facility] Body weight 2019-05-03 20:09:00 82.2 kg [facility] BMI 2019-05-03 20:09:00 33.14 kg/m2 [facility] Body temperature 2019-03-22 21:03:00 37 Cara [facility] Body weight 2019-03-22 21:03:00 83.4 kg [facility] Systolic blood pressure 2018-11-12 13:21:00 120 mm[Hg] [facility] Diastolic blood pressure 2018-11-12 13:21:00 78 mm[Hg] [facility] Heart rate 2018-11-12 13:21:00 72 /min Unive [facility] Body temperature 2018-11-12 13:21:00 37.83 Cara [facility] Respiratory rate 2018-11-12 13:21:00 18 /min [facility] Body weight 2018-11-12 13:21:00 76.023 kg [facility] BMI 2018-11-12 13:21:00 29.69 kg/m2 [facility] Systolic blood pressure 2018-11-11 13:42:00 123 mm[Hg] [facility] Diastolic blood pressure 2018-11-11 13:42:00 81 mm[Hg] [facility] Heart rate 2018-11-11 13:42:00 64 /min [facility] Body temperature 2018-11-11 13:42:00 36.94 Cara [facility] Respiratory rate 2018-11-11 13:42:00 18 /min [facility] Body height 2018-11-11 13:42:00 160 cm [facility] Body weight 2018-11-11 13:42:00 75.297 kg [facility] BMI 2018-11-11 13:42:00 29.41 kg/m2 [facility] Systolic blood pressure 2018-10-07 20:01:00 123 mm[Hg] [facility] Diastolic blood pressure 2018-10-07 20:01:00 80 mm[Hg] [facility] Heart rate 2018-10-07 20:01:00 97 /min [facility] Body temperature 2018-10-07 20:01:00 36.56 Cara [facility] Respiratory rate 2018-10-07 20:01:00 16 /min [facility] Body height 2018-10-07 20:01:00 158.7 cm [facility] Body weight 2018-10-07 20:01:00 74.844 kg [facility] BMI 2018-10-07 20:01:00 29.72 kg/m2 [facility] Oxygen saturation in Arterial blood by Pulse oximetry 2018-10-07 20:01:00 99 /min [facility] Procedures Procedure Date / Time Performed Performing Clinician Source BI ULTRASOUND BREAST COMPLET E RIGHT 2022-11-12 16:39:22 Rolan Casarez [facility] POCT MOLECULAR STREP 2022-08-11 16:25:00 Unknown, Attending [facility] POCT URINALYSIS W/O SPECIFIC GRAVITY 2022-05-27 20:36:00 Rolan Casarez [facility] PATIENT FINANCIAL POLICY 2022-05-27 20:07:26 Doctor Unassigned, [place] [facility] BI ULTRASOUND BREAST COMPLET E BILATERAL 2022-02-21 19:23:00 Rolan Casarez [facility] US PELVIS COMPLETE WITH TRANSVAGINAL 2022-02-21 17:55:34 Rolan Casarez [facility] DISCLOSURE AND CONSENT, MEDICAL AND SURGICAL PROCEDURES 2022-01-31 06:01:00 Doctor Unassigned, [place] [facility] POCT TEST 2022-01-31 00:00:00 AdBrooklyn barron [facility] ASSIGNMENT OF BENEFITS 2022-01-02 14:07:23 Doctor Unassigned, [place] [facility] POCT TEST 2021-01-06 02:44:00 Roma Adame [facility] URINALYSIS 2021-01-06 02:34:00 Roma Adame [facility] URINE DRUG (IMMUNOASSAY) - COMPREHENSIVE DRUG SCREEN W/O REFLEX 2021-01-06 02:34:00 Roma Adame [facility] LACTIC ACID WHOLE BLOOD 2021-01-06 02:23:00 Roma Adame [facility] COMP. METABOLIC PANEL (26218) 2021-01-06 02:03:00 Roma Adame [facility] ETHANOL 2021-01-06 02:03:00 Roma Adame [facility] CBC WITH DIFF 2021-01-06 02:03:00 Roma Adame [facility] MENINGOCOCCAL B VACCINE, OMV , 2 DOSE, IM 2020-04-16 16:43:42 Karen Tamayo [facility] POCT RAPID STREP SCREEN FOR GROUP A 2020-02-24 19:24:00 Karen Tamayo [facility] EXTERNAL PROVIDER RECORDS 2019-10-13 05:01:00 Doctor Unassigned, [place] [facility] PEDI ELECTROENCEPHALOGRAM 2019-10-12 00:00:00 Dalia Arreguin [facility] DISCLOSURE AND CONSENT, MEDICAL AND SURGICAL PROCEDURES 2019-10-07 05:01:00 Doctor Unassigned, [place] [facility] AUTHORIZATION TO RELEASE PHI TO [facility] 2019-10-06 05:01:00 Doctor Unassigned, [place] [facility] BI ULTRASOUND BREAST LIMITED LEFT 2019-08-16 13:29:57 Alexandria Whitmore [facility] CONSENT FOR CONTRACEPTION 2019-08-04 05:01:00 Doctor Unassigned, [place] [facility] POCT TEST 2019-08-04 00:00:00 Alexandria Whitmore [facility] POCT URINALYSIS W/O SPECIFIC GRAVITY 2019-08-04 00:00:00 Alexandria Whitmore [facility] AGREEMENTS AUTHORIZATIONS AN D IRREVOCABLE ASSIGNMENTS (FORM 2001) 2019-06-16 05:01:00 Doctor Unassigned, [place] [facility] CONSENT/REFUSAL FOR DIAGNOSI S AND TREATMENT 2019-05-03 19:11:33 Doctor Unassigned, [place] [facility] URINE CULTURE 2019-03-22 21:53:00 Demetrius Morgan [facility] CONSENT FOR DEPO-PROVERA 2018-11-11 05:01:00 Doctor Unassigned, [place] [facility] MENINGOCOCCAL B VACCINE(TRUMENBA) 2 OR 3 DOSE SERIES, IM 2018-10-07 20:59:48 Karen Tamayo [facility] MENACTRA (MCV4-D) VACCINE 2018-10-07 20:59:21 Karen Tamayo [facility] Encounters Start Date/Time End Date/Time Encounter Type Admission Type Attending Clinicians Care Facility Care Department Encounter ID Source 2021-01-22 07:20:19 Emergency [facility] [id number] [facility] 2023-04-08 14:00:00 2023-04-08 14:00:00 Outpatient ALEXANDRIA LOYOLA [facility] [id number] [facility] 2023-01-05 08:30:00 2023-01-05 08:30:00 Outpatient ROLAN PALOMINO [facility] [id number] [facility] 2022-12-02 10:00:00 2022-12-02 12:30:57 Outpatient MILAN PATEL [facility] [id number] [facility] 2022-12-02 10:00:00 2022-12-02 12:30:57 Office Visit Leslie Carreon Joseph [facility] [id number] [facility] 2022-12-01 00:00:00 2022-12-01 00:00:00 Telephone Leslie Carreon [facility] 1.0.114 350.1.13.10 [id number] [facility] 2022-11-26 00:00:00 2022-11-26 00:00:00 Telephone Corrine Llanos [facility] 1.0.114 350.1.13.10 [id number] [id number] [facility] 2022-11-18 09:00:00 2022-11-18 14:20:05 Outpatient Suly CASAREZ [facility] [id number] [facility] 2022-11-18 09:00:00 2022-11-18 14:20:05 Office Visit Leslie Carreon [facility] 1.0.114 350.1.13.10 [id number] [id number] [facility] 2022-11-18 10:15:00 2022-11-18 10:30:00 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 Lab, [facility] Hermelindo [facility] 1.0.114 [id number] [id number] [id number] [facility] 2022-11-13 09:00:00 2022-11-13 09:31:00 Outpatient ALEXANDRIA LOYOLA [facility] [id number] [facility] 2022-11-13 09:00:00 2022-11-13 09:31:00 Office Visit Alexandria Whitmore [facility] TAWANDA ANG [facility] 1..114 350.1.13.10 [id number] [id number] [facility] 2022-11-13 00:00:00 2022-11-13 00:00:00 Letter (Out) Alexandira Whitmore Sk[facility] 1..840.114 350.1.13.10 [id number] [id number] [facility] 2022-11-12 10:15:25 2022-11-12 23:59:00 Outpatient R ASHLEYPRINCESS [facility] [id number] [facility] 2022-11-12 10:15:25 2022-11-12 23:59:00 Hospital Encounter Rolan Casarez [facility] 1.840.114 350.1.13.10 4.2.7.2.686 [id number] [facility] 2022-10-28 09:30:00 2022-10-28 09:59:16 Outpatient R HERMELINDO [facility] [id number] [facility] 2022-10-28 09:30:00 2022-10-28 09:59:16 Office Visit Hermelindo [facility] BUILDING 1..840.114 350.1.13.10 4.2.7.2.686 [id number] [facility] 2022-10-28 00:00:00 2022-10-28 00:00:00 Letter (Out) Moemaximilianprincess [facility] BUILDING 1..840.114 350.1.13.10 4.2.7.2.686 [id number] 134 [id number] [facility] 2022-08-11 11:00:00 2022-08-11 11:47:20 Outpatient R MANNY CARMEN [facility] [id number] [facility] 2022-08-11 11:00:00 2022-08-11 11:47:20 Urgent Care Manny Carmen Unknown, Attending [facility] 1.840.114 350.1.13.10 4.2.7.2.686 [id number] [facility] 2022-06-16 00:00:00 2022-06-16 00:00:00 Telephone Rolan Casarez [facility] BUILDING 1.840.114 350.1.13.10 4.2.7.2.686 [id number] [facility] 2022-06-13 14:05:2022-06-13 23:59:00 Outpatient R HERMELINDO [facility] [id number] [facility] 2022-06-13 14:05:2022-06-13 23:59:00 Hospital Encounter Rolan Casarez [facility] 1..114 350.1.13.10 4.2.7.2.686 [id number] [facility] 2022-06-06 00:00:00 2022-06-06 00:00:00 Outpatient R HERMELINDO [facility] [id number] [facility] 2022-05-27 14:00:00 2022-05-27 15:06:27 [facility] [id number] 2022-05-27 14:00:00 2022-05-27 15:06:27 Office Visit Rolan Casarez [facility] BUILDING 1.84.114 350.1.13.10 4.2.7.2.686 [id number] [facility] 2022-05-27 00:00:00 2022-05-27 00:00:00 Orders Only Doctor Unassigned, [place] [facility] 1.840.114 350.1.13.10 4.2.7.2.686 [id number] [facility] 2022-02-21 12:00:22 2022-02-21 23:59:00 Hospital Encounter [facility] 1.2840.114 350.1.13.10 4.2.7.2.686 [id number] [facility] 2022-02-21 10:48:03 2022-02-21 11:59:00 Outpatient R HERMELINDO [facility] [id number] [facility] 2022-02-21 10:48:03 2022-02-21 11:59:00 Hospital Encounter [facility] 1.0.114 350.1.13.10 4.2.7.2.686 [id number] [facility] 2022-02-05 13:00:00 2022-02-05 13:36:35 Outpatient R BROOKLYN GARDUNO [facility] [id number] [facility] 2022-02-05 13:00:00 2022-02-05 13:36:35 Office [address] [place] Gard[address] [facility] 1.20.114 350.1.13.10 4.2.7.2.686 [id number] [facility] 2022-02-05 00:00:00 2022-02-05 00:00:00 Telephone Brooklyn Garduno [facility] 1.2.114 350.1.13.10 4.2.7.2.686 [id number] 134 [id number] [facility] 2022-02-05 00:00:00 2022-02-05 00:00:00 Letter (Out) Brooklyn Garduno [facility] 1.2840.114 350.1.13.10 4.2.7.2.686 [id number] 134 [id number] [facility] 2022-01-31 08:30:00 2022-01-31 09:33:19 Outpatient R BROOKLYN GARDUNO [facility] [id number] [facility] 2022-01-31 08:30:00 2022-01-31 09:33:19 Office Visit Brooklyn Garduno [facility] 1.84.114 350.1.13.10 4.2.7.2.686 [id number] 134 [id number] [facility] 2022-01-31 00:00:00 2022-01-31 00:00:00 Orders Only Doctor Unassigned, [place] [facility] 1.114 350.1.13.10 4.2.7.2.686 [id number] [facility] 2022-01-31 00:00:00 2022-01-31 00:00:00 Letter (Out) Brooklyn Garduno [facility] 1..114 350.1.13.10 4.2.7.2.686 [id number] [facility] 2022-01-13 09:00:00 2022-01-13 09:00:00 Outpatient MILAN PATEL [facility] [id number] Roro mackenzie [facility] 2022-01-13 00:00:00 2022-01-13 00:00:00 Telephone Liu Carlton [facility] [place] 1..114 350.1.13.10 4.2.7.2.686 [id number] [facility] 2022-01-10 13:00:00 2022-01-10 13:00:00 Outpatient R HAYLEY CASTILLO [facility] [id number] [facility] 2022-01-02 10:45:00 2022-01-02 11:00:00 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 2, Adc Lab Rolan Casarez [facility] 1.84.114 350.1.13.10 4.2.7.2.686 [id number] [facility] 2022-01-02 09:30:00 2022-01-02 10:12:42 Outpatient R HERMELINDOROLAN [facility] [id number] [facility] 2022-01-02 09:30:00 2022-01-02 10:12:42 Office Visit Rolan Casarez [facility] 1.20.114 350.1.13.10 4.2.7.2.686 [id number] 134 [id number] [facility] 2022-01-02 00:00:00 2022-01-02 00:00:00 Orders Only Doctor Unassigned, [place] [facility] 1..114 350.1.13.10 4.2.7.2.686 [id number] [facility] 2021-04-03 10:40:00 2021-04-03 10:40:00 Outpatient R KAREN TAMAYO [facility] [id number] [facility] 2021-02-22 00:00:00 2021-02-22 00:00:00 Telephone Alena Erickson [facility] 1.284.114 350.1.13.10 4.2.7.2.686 [id number] [facility] 2021-02-12 00:00:00 2021-02-12 00:00:00 Telephone MoeRolan friend [facility] 1.284.114 350.1.13.10 4.2.7.2.686 [id number] 134 [id number] [facility] 2021-01-05 20:38:00 2021-01-05 22:55:00 Emergency Roma Adame [facility] 1.20.114 350.1.13.10 4.2.7.2.686 [id number] [facility] 2020-08-23 15:00:00 2020-08-23 15:00:00 Outpatient ROLAN PALOMINO [facility] [id number] [facility] 2020-08-06 14:00:00 2020-08-06 14:00:00 Outpatient ROLAN PALOMINO [facility] [id number] [facility] 2020-07-06 11:20:00 2020-07-06 11:20:34 Outpatient EMELY RICO [facility] [id number] [facility] 2020-06-15 11:20:00 2020-06-15 12:18:13 Outpatient EMELY RICO [facility] [id number] [facility] 2020-06-12 00:00:00 2020-06-12 00:00:00 Patient Outreach Chinmay Aly [facility] 1.2.840.114 350.1.13.10 4.2.7.2.686 [id number] 2020-06-12 00:00:00 2020-06-12 00:00:00 Patient Outreach Chinmay Aly Everardo [facility] 1.2.840.114 350.1.13.10 4.2.7.2.686 [id number] [facility] 2020-04-25 00:00:00 2020-04-25 00:00:[address] [facility] Building 1.2.840.114 350.1.13.10 4.2.7.2.686 [id number] 134 [id number] 2020-04-25 00:00:00 2020-04-25 00:00:[address] [facility] Building 1.2.840.114 350.1.13.10 4.2.7.2.686 [id number] 134 [id number] [facility] 2020-04-16 10:23:22 2020-04-16 10:43:22 Nurse Visit Nurse, Alena Timmons [facility] Building 1.2.840.114 350.1.13.10 4.2.7.2.686 [id number] [facility] 2020-04-16 10:20:00 2020-04-16 10:20:00 Outpatient R [facility] [id number] [facility] 2020-04-03 11:08:11 2020-04-03 11:23:11 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 2, Adc Lab Alena Erickson [facility] Building 1.2.84.114 350.1.13.10 4.2.7.2.686 [id number] [facility] 2020-04-03 11:00:00 2020-04-03 11:00:00 Outpatient R ALENA ERICKSON [facility] [id number] [facility] 2020-04-02 11:30:50 2020-04-02 13:18:47 Billing Encounter Artur [facility] Building 1.2.84.114 350.1.13.10 4.2.7.2.686 [id number] [facility] 2020-04-02 10:47:55 2020-04-02 11:50:03 [facility] 1..840.114 350.1.13.10 4.2.7.2.686 [id number] 2020-04-02 10:47:55 2020-04-02 11:50:03 [facility] 1.2.84.114 350.1.13.10 4.2.7.2.686 [id number] [facility] 2020-04-02 10:40:00 2020-04-02 10:40:00 Outpatient R KAREN TAMAYO [facility] [id number] [facility] 2020-04-02 00:00:00 2020-04-02 00:00:00 Letter (Out) Dre Alena A [facility] Building 1..840.114 350.1.13.10 4.2.7.2.686 [id number] [facility] 2020-02-24 13:11:12 2020-02-24 14:13:29 [facility] 1..840.114 350.1.13.10 4.2.7.2.686 [id number] [facility] 2020-02-24 13:00:00 2020-02-24 13:00:00 Outpatient R KAREN TAMAYO [facility] [id number] [facility] 2020-02-01 13:00:00 2020-02-01 13:00:00 Outpatient R [facility] [id number] [facility] 2020-01-30 14:47:20 2020-01-30 15:35:45 Office Visit Alexandria Whitmore [facility] 1..840.114 350.1.13.10 4.2.7.2.686 [id number] [facility] 2020-01-30 15:00:00 2020-01-30 15:00:00 Outpatient R ALEXANDRIA WHITMORE [facility] [id number] [facility] 2020-01-10 14:35:02 2020-01-10 16:02:32 Office Visit Rolan Casarez [facility] Building 1..840.114 350.1.13.10 4.2.7.2.686 [id number] [facility] 2020-01-10 14:45:00 2020-01-10 14:45:00 Outpatient ROLAN PALOMINO [facility] [id number] [facility] 2019-12-15 10:45:00 2019-12-15 10:45:00 [id number] 2019-12-15 00:00:00 2019-12-15 00:00:00 Telephone Alena Erickson [facility] INTERIOR DESIGN INSTRUCTOR [facility] 1.114 350.1.13.10 4.2.7.2.686 [id number] [facility] 2019-11-30 15:00:00 2019-11-30 15:00:00 Outpatient R [facility] [id number] [facility] 2019-11-18 09:30:00 2019-11-18 09:30:00 Outpatient ROLAN PALOMINO [facility] [id number] [facility] 2019-11-14 00:00:00 2019-11-14 00:00:[address] [facility] 1.114 350.1.13.10 4.2.7.2.686 [id number] [facility] 2019-10-13 00:00:00 2019-10-13 00:00:00 Orders Only Doctor Unassigned, [place] [facility] 1.114 350.1.13.10 4.2.7.2.686 [id number] [facility] 2019-10-12 12:44:00 2019-10-12 23:59:00 Hospital Encounter Dalia Arreguin Lea Pedi Neuro [facility] [place] 1.114 350.1.13.10 4.2.7.2.686 [id number] [facility] 2019-10-12 12:44:33 2019-10-12 13:44:33 Office Visit Dalia Arreguin Yuval [facility] [place] 1.2840.114 350.1.13.10 4.2.7.2.686 [id number] [facility] 2019-10-12 13:00:00 2019-10-12 13:00:00 Outpatient R DALIA ARREGUIN [facility] [id number] [facility] 2019-10-07 12:46:26 2019-10-07 13:32:19 Office Visit Alexandria Whitmore Skyler [facility] 1..840.114 350.1.13.10 4.2.7.2.686 [id number] [facility] 2019-10-07 13:00:00 2019-10-07 13:00:00 Outpatient R HAIMELINAEN [facility] [id number] [facility] 2019-10-07 00:00:00 2019-10-07 00:00:00 Orders Only Doctor Unassigned, [place] [facility] 1.84.114 350.1.13.10 4.2.7.2.686 [id number] [facility] 2019-10-06 14:55:54 2019-10-06 17:13:05 Office Visit Alena Erickson [facility] 1..840.114 350.1.13.10 4.2.7.2.686 [id number] [facility] 2019-10-06 15:00:00 2019-10-06 15:00:00 Outpatient R ALENA ERICKSON [facility] [id number] [facility] 2019-10-06 00:00:00 2019-10-06 00:00:00 Orders Only Doctor Unassigned, [place] [facility] 1.840.114 350.1.13.10 4.2.7.2.686 [id number] [facility] 2019-10-05 00:00:00 2019-10-05 00:00:00 Telephone Rolan Casarez [facility] 1.2.840.114 350.1.13.10 4.2.7.2.686 [id number] [facility] 2019-09-28 15:30:00 2019-09-28 15:30:00 Outpatient R [facility] [id number] [facility] 2019-09-15 15:00:00 2019-09-15 15:00:00 Outpatient R ROLAN CASAREZ [facility] [id number] [facility] 2019-08-31 15:00:00 2019-08-31 15:00:00 Outpatient R [facility] [id number] [facility] 2019-08-16 07:38:13 2019-08-16 23:59:00 Outpatient R ALEXANDRIA WHITMORE [facility] [id number] [facility] 2019-08-16 07:38:00 2019-08-16 23:59:00 Hospital Encounter Alexandria Whitmore [facility] 1.840.114 350.1.13.10 4.2.7.2.686 [id number] [facility] 2019-08-08 00:00:00 2019-08-08 00:00:00 Case Management Rolan Casarez [facility] 1.2.840.114 350.1.13.10 4.2.7.2.686 [id number] [facility] 2019-08-04 13:33:06 2019-08-04 14:36:24 Office Visit Alexandria Whitmore [facility] 1.2.840.114 350.1.13.10 4.2.7.2.686 [id number] [facility] 2019-08-04 13:30:00 2019-08-04 13:30:00 Outpatient R ALEXANDRIA WHITMORE [facility] [id number] [facility] 2019-08-04 00:00:00 2019-08-04 00:00:00 Orders Only Doctor Unassigned, [place] [facility] 1.20.114 350.1.13.10 4.2.7.2.686 [id number] [facility] 2019-07-19 00:00:00 2019-07-19 00:00:00 Telephone Haim Alexandria Holland [facility] Building 1.2840.114 350.1.13.10 4.2.7.2.686 [id number] [facility] 2019-06-16 11:24:51 2019-06-16 11:39:51 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 2, Adc Lab Alena Erickson [facility] Building 1.284.114 350.1.13.10 4.2.7.2.686 [id number] [facility] 2019-06-16 11:15:00 2019-06-16 11:15:00 Outpatient ALENA BLANTON [facility] [id number] [facility] 2019-06-16 00:00:00 2019-06-16 00:00:00 Orders Only Doctor Unassigned, [place] [facility] 1.2.114 350.1.13.10 4.2.7.2.686 [id number] [id number] [facility] 2019-06-16 00:00:00 2019-06-16 00:00:00 Telephone Alena Erickson [facility] Building 1.284.114 350.1.13.10 4.2.7.2.686 [id number] [facility] 2019-06-15 10:45:00 2019-06-15 10:45:00 [facility] [id number] 2019-06-15 08:26:10 2019-06-15 08:56:10 Telemedici ne Visit Hermelindo [facility] 1.840.114 350.1.13.10 4.2.7.2.686 [id number] [facility] 2019-06-09 08:45:00 2019-06-09 08:45:00 Outpatient R MOEMAXIMILIANPRINCESS [facility] [id number] [facility] 2019-06-02 15:45:00 2019-06-02 15:45:00 Outpatient R ASHLEYPRINCESS [facility] [id number] [facility] 2019-05-31 13:45:00 2019-05-31 13:45:00 Outpatient R [facility] [id number] [facility] 2019-05-23 14:21:31 2019-05-23 16:27:38 Office Visit Alena Erickson [facility] 1.840.114 350.1.13.10 4.2.7.2.686 [id number] [facility] 2019-05-23 14:30:00 2019-05-23 14:30:00 Outpatient R ALENA ERICKSON [facility] [id number] [facility] 2019-05-23 00:00:00 2019-05-23 00:00:00 Letter (Out) Alena Erickson [facility] ..840.114 350.1.13.10 4.2.7.2.686 [id number] [facility] 2019-05-16 15:19:14 2019-05-16 15:52:21 Nurse Visit Nurse, [facility] [place] Whitmore [facility] Building 1..840.114 350.1.13.10 4.2.7.2.686 [id number] [facility] 2019-05-16 15:30:00 2019-05-16 15:30:00 Outpatient ALEXANDRIA LOYOLA [facility] [id number] [facility] 2019-05-03 13:12:12 2019-05-03 14:43:58 Office Visit Urology, Clc Bls Sae sánchez [facility] Building 1.2840.114 350.1.13.10 4.2.7.2.686 [id number] [facility] 2019-05-03 00:00:00 2019-05-03 00:00:00 Orders Only Doctor Unassigned, [place] [facility] 1.2840.114 350.1.13.10 4.2.7.2.686 [id number] [id number] [facility] 2019-05-03 00:00:00 2019-05-03 00:00:00 Letter (Out) Urology, Ruby Bls [facility] Building 1.2840.114 350.1.13.10 4.2.7.2.686 [id number] [facility] 2019-03-22 14:44:34 2019-03-22 16:20:55 [facility] 1.2840.114 350.1.13.10 4.2.7.2.686 [id number] [facility] 2018-12-01 00:00:00 2018-12-01 00:00:00 Telephone Apryl Guerrero [facility] 1.2840.114 350.1.13.10 4.2.7.2.686 [id number] 134 [id number] [facility] 2018-11-30 00:00:00 2018-11-30 00:00:00 Telephone Apryl Guerrero [facility] 1.2.840.114 350.1.13.10 4.2.7.2.686 [id number] 134 [id number] [facility] 2018-11-12 07:59:52 2018-11-12 08:43:27 Office Visit Apryl Guerrero [facility] 1.2.840.114 350.1.13.10 4.2.7.2.686 [id number] 134 [id number] [facility] 2018-11-12 00:00:00 2018-11-12 00:00:00 Letter (Out) Apryl Guerrero [facility] 1.2.840.114 350.1.13.10 4.2.7.2.686 [id number] 134 [id number] [facility] 2018-11-11 08:24:16 2018-11-11 08:54:22 Nurse Visit Nurse, [facility] [place] Whitmore [facility] 1.2.840.114 350.1.13.10 4.2.7.2.686 [id number] 134 [id number] [facility] 2018-11-11 00:00:00 2018-11-11 00:00:00 Orders Only Doctor Unassigned, [place] [facility] 1.2.840.114 350.1.13.10 4.2.7.2.686 [id number] [id number] [facility] 2018-10-07 14:49:05 2018-10-07 16:35:54 Office Visit Karen Tamayo Elizabeth A [facility] 1.2.840.114 350.1.13.10 4.2.7.2.686 [id number] [facility] Results Test Description Test Time Test Comments Results Result Co mments Source [facility] SPECIFIC [id number] 20:36:00* Test Item Value Reference Range Interpretation Comme nts POCT PH U (test code = 3254) 5 mg/dl 5-8 POCT U LEUK EST (test code = 3263) trace Negative - Negative POCT U NIT (test code = 3262) negative Negative - Negati ve POCT U PROT (test code = 3259) negative Negative - Negat thea POCT U GLU (test code = 3256) negative Negative - Negati ve POCT U KETONE (test code = 3258) negative Negative - Neg ative POCT U BLD (test code = 3257) negative Negative - Negati ve [facility] URINALYSIS W/O SPECIFIC [id number] 20:36:00* Test Item Value Reference Range Interpretation Comme nts POCT PH U (test code = 3254) 5 mg/dl 5-8 POCT U LEUK EST (test code = 3263) trace Negative - Negative POCT U NIT (test code = 3262) negative Negative - Negati ve POCT U PROT (test code = 3259) negative Negative - Negat thea POCT U GLU (test code = 3256) negative Negative - Negati ve POCT U KETONE (test code = 3258) negative Negative - Neg ative POCT U BLD (test code = 3257) negative Negative - Negati ve [facility] [id number] 15:01:00* Test Item Value Reference Range Interpretation Comme nts POCT PREG (test code = 1605) Negative On board controls acceptable with C Line (test code = 3574) Yes POCT PREG LOT # (test code = 3575) POCT PREG TEST DATE ( test code = 3576) [facility] [id number] 15:01:00* Test Item Value Reference Range Interpretation Comme nts POCT PREG (test code = 1605) Negative On board controls acceptable with C Line (test code = 3574) Yes POCT PREG LOT # (test code = 3575) POCT PREG TEST DATE ( test code = 3576) [facility] [id number] 15:01:00* Test Item Value Reference Range Interpretation Comme nts POCT PREG (test code = 1605) Negative On board controls acceptable with C Line (test code = 3574) Yes POCT PREG LOT # (test code = 3575) POCT PREG TEST DATE ( test code = 3576) [facility]2021-10-17 02:46:43* Test Item Value Reference Range Interpretation Comme nts ALCOHOL (test code = 7337819915) <10 mg/dL HAZEL (test code = HAZEL) <10 [id number] Toxic>100 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 METABOLIC PANEL (41127)2021-01-06 02:40:21* Test Item Value Reference Range Interpretation Comme nts NA (test code = 9667081677) 139 mmol/L 135-145 K (test code = 7756380056) 3.8 mmol/L 3.5-5.0 CL (test code = 2318015894) 114 mmol/L 98-108 H CO2 TOTAL (test code = 9333218614) 20 mmol/L 23-31 L AGAP (test code = 3200002828) 2-16 BUN (test code = 0458120132) 13 mg/dL 7-23 GLUCOSE (test code = 2912791377) 86 mg/dL 70-110 CREATININE (test code = 5840112551) 0.53 mg/dL 0.50-1.04 TOTAL BILI (test code = 4887944278) 0.4 mg/dL 0.1-1.1 CALCIUM (test code = 2873825019) 7.8 mg/dL 8.6-10.6 L T PROTEIN (test code = 1049325542) 5.6 g/dL 6.3-8.2 L ALBUMIN (test code = 4185843509) 3.1 g/dL 3.5-5.0 L ALK PHOS (test code = 4280882157) 36 U/L 34-122 ALTv (test code = 1742-6) 14 U/L 5-35 AST(SGOT) (test code = 3210553070) 26 U/L 13-40 eGFR (test code = 8576422922) mL/min/1.73m2 HAZEL (test code = HAZEL) Association of [...] or abnormalities in imaging tests). Lab Interpretation (test code = 99022-4) [facility] Whole [id number] 02:30:07* Test Item Value Reference Range Interpretation Comme nts LACTIC ACID (test code = 0603682479) 1.53 mmol/L 0.50-2.20 Lab Interpretation (test cod e = 24254-2) Normal [facility] WITH [id number] 02:20:01* Test Item Value Reference Range Interpretation Comme nts WBC (test code = 6690-2) See_Comment [Automated messa ge] The system which generated this result transmitted reference range: 4.50 - 13.50 10*3/?L. The reference range was not used to interpret this result as normal/abnormal. RBC (test code = 789-8) See_Comment [Automated messa ge] The system which generated this result transmitted reference range: 4.10 - 5.10 10*6/?L. The reference range was not used to interpret this result as normal/abnormal. HGB (test code = 718-7) 11.4 g/dL 12.0-16.0 L HCT (test code = 4544-3) 36.2 % 36.0-45.0 MCV (test code = 787-2) 83.6 fL 78.0-95.0 MCH (test code = 785-6) 26.3 pg 26.0-32.0 MCHC (test code = 786-4) 31.5 g/dL 32.0-36.0 L RDW-SD (test code = 23656-6) 45.0 fL 38.5-49.0 RDW-CV (test code = 788-0) 14.8 % 11.5-14.0 H PLT (test code = 777-3) See_Comment [Automated [employer]] The system which generated this result transmitted reference range: 135 - 361 10*3/?L. The reference range was not used to interpret this result as normal/abnormal. MPV (test code = 34240-7) 10.5 fL 9.4-13.3 NRBC/100 WBC (test code = 9823322820) See_Comment [Automated [employer] ssage] The system which generated this result transmitted reference range: 0.0 - 10.0 /100 WBCs. The reference range was not used to interpret this result as normal/abnormal. NRBC x10^3 (test code = 5596690799) <0.01 See_Comment [Automated [employer] ge] The system which generated this result transmitted reference range: 10*3/?L. The reference range was not used to interpret this result as normal/abnormal. GRAN MAT (NEUT) % (test code = 770-8) 45.6 % IMM GRAN % (test code = 1292201226) 0.20 % LYMPH % (test code = 736-9) 42.0 % MONO % (test code = 5905-5) 9.9 % EOS % (test code = 713-8) 2.1 % BASO % (test code = 706-2) 0.2 % GRAN MAT x10^3(ANC) (test code = 8657668092) 3.68 10*3/uL 1.50-10.30 IMM GRAN x10^3 (test code = 8227509327) <0.03 0.00-0.06 LYMPH x10^3 (test code = 731-0) 3.39 10*3/uL 0.70-7.40 MONO x10^3 (test code = 742-7) 0.80 10*3/uL 0.00-0.50 H EOS x10^3 (test code = 711-2) 0.17 10*3/uL 0.00-0.40 BASO x10^3 (test code = 704-7) <0.03 0.00-0.10 Lab Interpretation (test code = 24927-7) Abnormal [facility] RAPID STREP SCREEN FOR GROUP [id number] 19:24:00* Test Item Value Reference Range Interpretation Comme nts POCT GP A STREP (test code = 31346-0) negative Negative - Negative [facility] RAPID STREP SCREEN FOR GROUP [id number] 19:24:00* Test Item Value Reference Range Interpretation Comme nts POCT GP A STREP (test code = 32511-4) negative Negative - Negative [facility] [id number] 00:00:00* Test Item Value Reference Range Interpretation Comme nts IMP (test code = IMP) Electroencephalogram Report NAME: Romy BernsteinAGE: 19 Year(s) 6 Month(s)DATE OF EE10/12/2019PROCEDURE: ?EEG ? ? EEG#: [id number] PHYSICIAN: Dalia Arreguin MDLOCATION: ?[facility] @ MONITOR COLONYCLINICAL DIAGNOSIS: Seizure vs PNESPERTINENT MEDICATIONS: ?N/A [...] Arreguin MD Recording time: 44m39s Lab Interpretation (test code = 22627-7) Normal [facility] ULTRASOUND BREAST LIMITED [id number] 13:32:53HISTORY: 2 palpable masses in the left breast. TECHNIQUE: 2 separate areas of concern in the left breast were evaluated inradial/antiradial/sagittal/coronal planes both by the technologist and byme. Solomon hager technologist was present in the room during all imagingevaluations. FINDINGS: The patient described feeling of a mass along the inner alveolarmargin. This area showed no abnormality. Another palpable abnormality described on the patient located at 10:00showed possible 6 x 3 mm size lymph nodewith normal architecturepreserved. CONCLUSIONS: No worrisome masses in the left breast detected. Patient wasadvised to continue monitoring the palpable abnormality by her own selfevaluation and to seek medical opinion if she feels that palpable area isincreasing in size. Findings and images were dis cussed/reviewed with the patient and hermother. ACR classification: Category II. [facility], Radiant Results Inft User - 08/16/2019 8:34 AM CDTHISTORY: 2 palpable masses in the left breast.TECHNIQUE: 2 separate areas of concern in the left breast were evaluated inradial/antiradial/sagittal/coronal planesboth by the technologist and byme. Female technologist was present in the room during all imagingevaluations.FINDINGS: The patient described feeling of a mass along the inner alveolarmargin. This area showed no abnormality.Another palpable abnormality described on the patient located at 10:00showedpossible 6 x 3 mm size lymph node with normal architecturepreserved.CONCLUSIONS: No worrisome masses in the left breast detected. Patient wasadvised to continue monitoring the palpable abnormality byher own selfevaluation and to seek medical opinion if she feels that palpable area isincreasing in size.Findings and images were discussed/reviewed with the patient and hermother.ACR classification: Category II.[facility] URINALYSIS W/O SPECIFIC GRAVITY 2019-08-04 19:35:00* Test Item Value Reference Range Interpretation Comme nts POCT PH U (test code = 3254) 7 mg/dl 5-8 POCT U LEUK EST (test code = 3263) 2+ Negative - Negative POCT U NIT (test code = 3262) Negative Negative - Negati ve POCT U PROT (test code = 3259) Negative Negative - Negat thea POCT U GLU (test code = 3256) Negative Negative - Negati ve POCT U KETONE (test code = 3258) Negative Negative - Neg ative POCT U BLD (test code = 3257) 4+ Negative - Negati ve [facility] URINALYSIS W/O SPECIFIC [id number] 19:35:00* Test Item Value Reference Range Interpretation Comme nts POCT PH U (test code = 3254) 7 mg/dl 5-8 POCT U LEUK EST (test code = 3263) 2+ Negative - Negative POCT U NIT (test code = 3262) Negative Negative - Negati ve POCT U PROT (test code = 3259) Negative Negative - Negat thea POCT U GLU (test code = 3256) Negative Negative - Negati ve POCT U KETONE (test code = 3258) Negative Negative - Neg ative POCT U BLD (test code = 3257) 4+ Negative - Negati ve [facility] [id number] 18:57:00* Test Item Value Reference Range Interpretation Comme nts POCT PREG (test code = 1605) Negative On board controls acceptable with C Line (test code = 3574) Yes POCT PREG LOT # (test code = 3575) POCT PREG TEST DATE ( test code = 3576) [facility] [id number] 18:57:00* Test Item Value Reference Range Interpretation Comme nts POCT PREG (test code = 1605) Negative On board controls acceptable with C Line (test code = 3574) Yes POCT PREG LOT # (test code = 3575) POCT PREG TEST DATE ( test code = 3576) [facility] [id number] 22:13:00* Test Item Value Reference Range Interpretation Comme nts URINE CULTURE (test code = 630-4) > 100,000 CFU/mL mixed aerobic organisms - suggests endogenous microbial contamination [facility] [id number] 22:13:00* Test Item Value Reference Range Interpretation Comme nts URINE CULTURE (test code = 630-4) > 100,000 CFU/mL mixed aerobic organisms - suggests endogenous microbial contamination [facility] Notes Date/Time Note Provider Source 2022-12-01 10:19:49 Ej7UhRNpBzuUqie4+Cb2 ORS62Wlyr0Cr hoEeyJEaDW9ZQ+83UxzYbnyTWCDmJeLi 9362-05-07M25:19:49 I contacted Ms. Bernstein to let her know I received her hereditary cancer testing result. 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 CHEK2 carriers are at an increased risk for breast and colorectal cancer with specific management recommendations for these risks, although I reviewed that the specific variant identified in Ms. Bernstein's testing is associated with lower cancer risks than other CHEK2 pathogenic variants. Ms. Bernstein noted that her mother missed her genetics appointment since she was in the hospital for a mini-stroke. Her mother was interested in rescheduling her genetics appointment for testing. She wanted to learn more information about the CHEK2 variant though and its impact on her and her relatives. A follow-up appointment will be scheduled for tomorrow, December 02 at 10:00 to discuss the implications of this result for her and her family members. She had no further questions at this time. Recommendations and Decisions1) Ms. Bernstein had hereditary cancer testing due to her family history of breast, ovarian, uterine, stomach, pancreatic, bladder, and brain cancer. Her testing was positive for a CHEK2 pathogenic (low penetrance) variant, specifically c.470T>C (p.Rcd007Rff). This result is associated with an increased risk for breast and colon cancer with specific management recommendations for these risks, although the specific risks associated with this variant are lower in comparison to other CHEK2 pathogenic variants. 2) A follow-up appointment will be scheduled for tomorrow to discuss the implications of this result for her and her family members 82637-1Abpjxcjdy encounter MgsiBS0813-20-53J22:38:29Telepho ne encounter NoteTXT1.2.840.477923.1.13.104.2 .7.2.134780|[id number] e for patient hrbp61230-9JbzsKZCQPDWIZJ[address]TXTX[address] 9936XNJFNJFGKCRKQPZPSQVPPK5335-7 9-11T12:38:291.2.840.484688.1.72 .3.15|1.2.840.946469.1.13.104.2. 7.2.727879_[id number] [facility] 2022-11-26 11:50:52 vD9tLx606kOVGnxBcR+a 44G4XhuERdIM 48udhL4r5ZQlId5KY2lbUryVKCFucPXJ 1089-73-70V41:50:52 [facility] lab results scanned to chart. 02584-8Wbildayzr encounter LlurCT8433-83-70H28:51:15Telepho ne encounter NoteTXT1.2.840.395451.1.13.104.2 .7.2.812412|[id number] e for patient oobm44586-2JufuPA972210620Hahduu r J Gomez RN[address]TX[address] 6532QIDSDAGHLZHICQFPWMNGXJ9590-8 1:51:151.2.840.512565.1.72 .3.15|1.2.840.174698.1.13.104.2. 7.2.727879_[id number] Corrine Llanos RN [facility] 2022-11-18 10:15:00 TPT61jxQmhr5VoStciZT mAdKr2UMNrjZ slXN90X/51HjxT/3lMGs74bapv95KFn/ 9494-13-76N49:15:00 Images from the original note were not included.Venipuncture collection performed by clean technique on the left anticubitus. Total of 1 attempts were made. Slight pressure and a bandage/dressing were applied to the site(s). The patient experienced no complications. The following specimens were processed according to instructions and picked up by Genetics depart. per lab order on 11/18/22: LT BLUE SST RED 1 LAV PPT DK GREEN (LiHep) DK GREEN (SodH) CARNEY DK BLUE (K2) DK BLUE (S) ACD Blood Culture NIPT/NTD 75630-5Uuufo TuzfQI9528-47-97V12:32:54Nurse NoteTXT1.2.840.136379.1.13.104.2 .7.2.360310|[id number] e for patient cuvj17878-6Dtigg NoteLNUT[address] GizgOecbpqnxkAztptodwrHOAP855378 4546PASKUVPXLZCILRBQUDDMNR8916-6 11-18T10:32:541.2.840.056298.1.72 .3.15|1.2.840.349320.1.13.104.2. 7.2.727879_[id number] [facility]
[2023-04-19 19:53] LABS: Specific Gravity 1.006 (1.005-1.030)
[2023-04-19 19:56] LABS: Specific Gravity 1.006 (1.005-1.030); Urine Bacteria <20 /HPF (<20); Urine Bilirubin NEGATIVE (Negative); Urine Blood Negative (Negative); Urine Clarity Turbid (Clear); Urine Color Colorless (Yellow); Urine Glucose NEGATIVE (Negative); Urine Protein NEGATIVE (Negative); Urine RBC <5 /HPF (None Seen); Urine Urobilinogen Normal (Normal); Urine pH 6.5 (5.0-7.0)
[2023-04-19 20:25] LABS: Absolute Lymphocytes (CBC) 2.2 K/uL (0.7-4.9); Hematocrit 37.7 % (36.0-45.0); Lymphocytes % 27.1 % (15.3-44.8); Platelets 320 thou/uL (152-406); RBC Red Blood Cell Count 4.44 M/uL (3.86-4.86)
[2023-04-19 20:33] LABS: Potassium 3.5 mEq/L (3.5-5.1)
--- NOTE | 2023-04-19 20:51 | RAD REPORT ---
EXAM DESCRIPTION: US - Transvaginal OB - 04/19/2023 8:41 pm CLINICAL HISTORY: VAGINAL BLEEDING COMPARISON: No comparisons FINDINGS: Gestational sac identified within the endometrial canal. The mean sac diameter measures 7 millimeters. Yolk sac is identified. No pole identified. The uterus measures 6.5 x 4.6 x 5.6 cm with volume of 88 cc. The right ovary has volume of 9.5 cc. Th e left ovary is volume of 4.1 cc. Bilateral ovarian blood flow is present. Corpus luteum in the right ovary. No free fluid. IMPRESSION: Gestational sac and yolk sac identified with mean sac diameter consistent with 5 week 3 day and SHANTEL of 12/17/2023. Bilateral ovarian blood flow.
--- NOTE | 2023-04-19 21:09 | EDPHYS ---
Physician Documentation [facility] Name: Romy Bernstein Age: 23 yrs Sex: Female : 2000 Arrival Date: 04/19/2023 Time: 19:21 Bed 7 Private MD: ED Physician Alek Carpenter HPI: 04/19 19:33 This 23 yrs old Female presents to ER via Ambulatory with complaints of PT cp just wants test, Nausea. 19:33 The patient presents with pelvic pain, vaginal bleeding that is spotting, a desire for cp a test, nausea. Onset: The symptoms/episode began/occurred today. Associated signs and symptoms: Pertinent negatives: dysuria, fever. patient reports positive home test. 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 - Social history:: Smoking status: Patient denies any tobacco usage or history of. ROS: 19:35 Constitutional: Negative for body aches, chills, fever, poor PO intake, cp 19:35 Eyes: Negative for injury, pain, redness, and discharge, cp 19:35 Neck: Negative for pain with movement, pain at rest, stiffness, 19:35 Respiratory: Negative for cough, shortness of breath, wheezing, 19:35 Abdomen/GI: Positive for nausea, Negative for vomiting, diarrhea, constipation, 19:35 : Positive for pelvic pain, vaginal bleeding, 19:35 Neuro: Negative for altered mental status, headache, weakness, 19:35 All other systems are negative, Exam: 19:40 Constitutional: The patient appears in no acute distress, alert, awake, non-toxic, well cp developed, well nourished, 19:40 Head/Face: Normocephalic, atraumatic. cp 19:40 Eyes: Periorbital structures: appear normal, Conjunctiva: normal, no exudate, no injection, Sclera: no appreciated abnormality, Lids and lashes: appear normal, bilaterally, 19:40 ENT: External ear(s): are unremarkable, Nose: is normal, Mouth: Lips: moist, Oral mucosa: pink and intact, moist, Posterior pharynx: is normal, airway is patent, no erythema, no exudate, 19:40 Chest/axilla: Inspection: normal, 19:40 Cardiovascular: Rate: normal, Rhythm: regular, 19:40 Respiratory: the patient does not display signs of respiratory distress, Respirations: normal, no use of accessory muscles, no retractions, labored breathing, is not present, Breath sounds: are clear throughout, no decreased breath sounds, no stridor, no wheezing, 19:40 Abdomen/GI: Inspection: abdomen appears normal, Palpation: soft, in all quadrants, mild abdominal tenderness, in the suprapubic area, rebound tenderness, is not appreciated, involuntary guarding, is not appreciated, 19:40 Back: pain, is absent, ROM is normal, Vital Signs: 19:30 BP 136 / 78; Pulse 83; Resp 16 S; Temp 99.1(TE); Pulse Ox 100% on R/A; Weight 87.54 kg as6 (R); Height 5 ft. 3 in. (R); Pain 6/10; 19:50 BP 127 / 75; Pulse 75; Resp 17 S; Pulse Ox 100% on R/A; ha1 20:34 BP 125 / 76; Pulse 70; Resp 17 S; Pulse Ox 100% on R/A; ha1 19:30 Body Mass Index 34.19 (87.54 kg, 160.02 cm) as6 19:30 Pain Scale: Adult as6 MDM: 19:39 Patient medically screened. cp 20:00 Differential diagnosis: ectopic , molar preganancy, ovarian cyst, pelvic cp inflammatory disease, uterine fibroids, urinary tract infection, vaginosis. 21:07 Data reviewed: vital signs, nurses notes, lab test result(s), radiologic studies, cp ultrasound. 21:07 Counseling: I had a detailed discussion with the patient and/or guardian regarding the cp historical points, exam findings, and any diagnostic results supporting the discharge/admit diagnosis, lab results, radiology results, the need for outpatient follow up, an OB/Gyne specialist, to return to the emergency department if symptoms worsen or persist or if there are any questions or concerns that arise at home. 04/19 19:27 Order name: Urinalysis W/Microscopic; Complete Time: 20:22 cp 04/19 21:02 Interpretation: Normal except: [facility] Turbid. cp 04/19 19:27 Order name: Test, Urine; Complete Time: 20:22 cp 04/19 20:22 Interpretation: Reviewed. cp 04/19 19:39 Order name: Abo/rh Typing; Complete Time: 21:01 cp 04/19 21:01 Interpretation: Reviewed. cp 04/19 19:39 Order name: Basic Metabolic Panel; Complete Time: 21:01 cp 04/19 21:01 Interpretation: Reviewed. cp 04/19 19:39 Order name: CBC with Diff; Complete Time: 21:01 cp 04/19 21:01 Interpretation: Normal except: MPV 7.0. cp 04/19 19:39 Order name: Quantitative Hcg; Complete Time: 21:01 cp 04/19 21:01 Interpretation: Reviewed. cp 04/19 20:23 Order name: US Transvaginal Ob; Complete Time: 21:01 cp 04/19 19:39 Order name: IV Saline Lock; Complete Time: 20:16 cp 04/19 19:39 Order name: Labs collected and sent; Complete Time: 20:16 cp 04/19 19:39 Order name: NPO; Complete Time: 20:16 cp Administered Medications: 20:44 Drug: Ondansetron IVP 4 mg IVP once; over 2 minutes Route: IVP; Site: right antecubital;ha1 21:00 Follow up: Response: No adverse reaction; Marked relief of symptoms; Nausea is decreasedha1 20:44 Drug: NS 0.9% IV 1000 ml IV at 1 bolus Per protocol; 1000 mL bolus Route: IV; Rate: 1 ha1 bolus; Site: right antecubital; 21:31 Follow up: Response: No adverse reaction; IV Status: Completed infusion; IV Intake: ha1 1000ml Disposition Summary: 04/19/23 21:08 Discharge Ordered Notes: Location: Home cp Problem: new cp Symptoms: have improved cp Condition: Stable cp Diagnosis - Threatened cp - Other specified related conditions, first trimester cp - Nausea cp Followup: cp - With: Private Physician - When: 48 Hours - Reason: Repeat Beta-HCG (48 Hours) Discharge Instructions: - Discharge Summary Sheet cp - Abdominal Pain During cp - Care cp - Threatened Miscarriage cp - Vaginal Bleeding During , First Trimester cp - First Trimester of cp - Activity Restriction During cp Forms: - Medication Reconciliation Form cp - Thank You Letter cp - Antibiotic Education cp - Prescription Opioid Use cp - Patient Portal Instructions cp - Leadership Thank You Letter cp Prescriptions: - Diclegis 10-10 mg Oral tablet, delayed release (enteric coated) - take 1 tablet ORAL route 3 times per day; 30 tablet; Refills: 0, Product cp Selection Permitted - 147-iron gluc-folic 13 mg iron- 1 mg Oral tablet - take 1 tablet ORAL route daily; 30 tablet; Refills: 0, Product Selection cp Permitted Signatures: Dispatcher [employer] EDMS Bari Bazzi PA PA cp Kieran Hastings RN RN as6 Jocy Ayala RN RN ha1 Corrections: (The following items were deleted from the chart) 19:34 19:33 PMHx: Seizures; "psychological, not epiletic" per pt; as6 as6
--- NOTE | 2023-04-19 21:09 | ER ---
Nurse's Notes [facility] Name: Romy Bernstein Age: 23 yrs Sex: Female : 2000 Arrival Date: 04/19/2023 Time: 19:21 Bed 7 Private MD: Diagnosis: Threatened ;Other specified related conditions, first trimester;Nausea Presentation: 04/19 19:30 Coronavirus screen: At this time, the client does not indicate any symptoms associated as6 with coronavirus-19. Ebola Screen: No symptoms or risks identified at this time. Risk Assessment: Do you want to hurt yourself or someone else? Patient reports no desire to harm self or others. 19:30 Method Of Arrival: Ambulatory as6 19:30 Chief complaint: Patient states: pt reports pelvic pain, spotting, nausea, positive as6 test. Initial Sepsis Screen: Does the patient meet any 2 criteria? No. Patient's initial sepsis screen is negative. Does the patient have a suspected source of infection? No. Patient's initial sepsis screen is negative. Onset of symptoms was April 19, 2023. 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 - Social history:: Smoking status: Patient denies any tobacco usage or history of. Screenin:35 [facility] ED Fall Risk Assessment (Adult) History of falling in the last 3 months, ha1 including since admission No falls in past 3 months (0 pts) Confusion or Disorientation No (0 pts) Intoxicated or Sedated No (0 pts) Impaired Gait No (0 pts) Mobility Assist Device Used No (0 pt) Altered Elimination No (0 pt) Score/Fall Risk Level 0 - 2 = Low Risk Oriented to surroundings, Maintained a safe environment, Educated pt \\T\\ family on fall prevention, incl call for assistance when getting out of bed, Hourly rounding (assess needs \\T\\ fall precautionary measures) done. Abuse screen: Denies threats or abuse. Denies injuries from another. Nutritional screening: No deficits noted. Tuberculosis screening: No symptoms or risk factors identified. Assessment: 19:35 General: Appears uncomfortable, Behavior is calm, cooperative. Pain: Complains of pain ha1 in pelvis Pain does not radiate. Pain currently is 6 out of 10 on a pain scale. Quality of pain is described as crampy, Pain began suddenly, Is intermittent. Neuro: Level of Consciousness is awake, alert, obeys commands, Oriented to person, place, time, situation. Cardiovascular: Capillary refill < 3 seconds Patient's skin is warm and dry. Respiratory: Airway is patent Respiratory effort is even, unlabored, Respiratory pattern is regular, symmetrical. GI: Abdomen is round non-distended, Bowel sounds present X 4 quads. Reports nausea. Derm: Skin is pink, warm \\T\\ dry. Musculoskeletal: Circulation, motion, and sensation intact. Range of motion: intact in all extremities. 20:35 Reassessment: Patient and/or family updated on plan of care and expected duration. Pain ha1 level reassessed. Patient is alert, oriented x 3, equal unlabored respirations, skin warm/dry/pink. Patient states feeling better. Patient states symptoms have improved. 21:28 Reassessment: Patient and/or family updated on plan of care and expected duration. Pain ha1 level reassessed. Patient is alert, oriented x 3, equal unlabored respirations, skin warm/dry/pink. Patient states feeling better. Patient states symptoms have improved. Vital Signs: 19:30 BP 136 / 78; Pulse 83; Resp 16 S; Temp 99.1(TE); Pulse Ox 100% on R/A; Weight 87.54 kg as6 (R); Height 5 ft. 3 in. (R); Pain 6/10; 19:50 BP 127 / 75; Pulse 75; Resp 17 S; Pulse Ox 100% on R/A; ha1 20:34 BP 125 / 76; Pulse 70; Resp 17 S; Pulse Ox 100% on R/A; ha1 19:30 Body Mass Index 34.19 (87.54 kg, 160.02 cm) as6 19:30 Pain Scale: Adult as6 ED Course: 19:25 Patient arrived in ED. jj6 19:26 Bari Bazzi PA is PHCP. cp 19:26 Alek Carpenter MD is Attending Physician. cp 19:30 Arm band placed on. as6 19:33 Triage completed. as6 19:34 Patient has correct armband on for positive identification. Placed in gown. Bed in low ha1 position. Call light in reach. Side rails up X 1. Adult w/ patient. 19:50 Inserted saline lock: 20 gauge in right antecubital area, using aseptic technique. ha1 Blood collected. 19:51 Test, Urine Sent. ha1 19:51 Urinalysis W/Microscopic Sent. ha1 20:16 Abo/rh Typing Sent. ha1 20:16 Basic Metabolic Panel Sent. ha1 20:16 CBC with Diff Sent. ha1 20:16 Quantitative Hcg Sent. ha1 20:43 US Transvaginal Ob In Process Unspecified. EDMS 21:30 Provided Education on: need to follow up with OB. ha1 21:30 No provider procedures requiring assistance completed. IV discontinued, intact, ha1 bleeding controlled, No redness/swelling at site. Pressure dressing applied. Administered Medications: 20:44 Drug: Ondansetron IVP 4 mg IVP once; over 2 minutes Route: IVP; Site: right antecubital;ha1 21:00 Follow up: Response: No adverse reaction; Marked relief of symptoms; Nausea is decreasedha1 20:44 Drug: NS 0.9% IV 1000 ml IV at 1 bolus Per protocol; 1000 mL bolus Route: IV; Rate: 1 ha1 bolus; Site: right antecubital; 21:31 Follow up: Response: No adverse reaction; IV Status: Completed infusion; IV Intake: ha1 1000ml Medication: 20:19 VIS not applicable for this client. ha1 Intake: 21:31 IV: 1000ml; Total: 1000ml. ha1 Outcome: 21:08 Discharge ordered by . cp 21:30 Discharged to home ambulatory, with family, ha1 21:30 Condition: stable 21:30 Discharge instructions given to patient, family, Instructed on discharge instructions, follow up and referral plans. medication usage, Demonstrated understanding of instructions, follow-up care, medications, Prescriptions given X 2, 21:31 Patient left the ED. ha1 Signatures: Dispatcher [employer] EDWI Bari Bazzi PA PA cp Cherri Treadwellj6 Kieran Hastings RN RN as6 Jocy Ayala RN RN ha1 Corrections: (The following items were deleted from the chart) 19:34 19:33 PMHx: Seizures; "psychological, not epiletic" per pt; as6 as6
[2023-04-19 23:21] VITALS: BP 125/76; TEMP 99.1; O2SAT 100
== END ==
LOC: ER 19:21
DX: O20.0 Threatened abortion (principal)
CPT/HCPCS: 36415; 76817; 80048; 81001; 81025; 84702; 85025; 86900; 86901; J2405; J7030

== ENCOUNTER → 2023-05-06 | Emergency (ER) | payer OTHER, SELFPAY ==
[~2023-05-06] MED LIST changes: +ACETAMINOPHEN 325 MG TABLET ONE; -ONDANSETRON 4 MG/2 ML VIAL ONE; +PROMETHAZINE INJ 25 MG/ML AMP ONE
--- OUTSIDE RECORDS SUMMARY | 2023-05-06 13:11 | XMS REPORT | Continuity of Care Document ---
Author Name Unknown Address [address] [place] [address] [facility] thconnect Address 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 Role Phone Pcp, Patient Does Not Have A Primary Care Physic drea ALEXANDRIA WHITMORE Attending Clinician Unavailable Alexandria Whitmore MD Attending Clinician [phone] Doctor Unassigned, [place] Attending Clinician U ROLAN Larsen Attending Clinician Unavailable MILAN DELCID Attending Clinician Unavailable Leslie Carreon Attending Clinician UnavailMilan Smith MD Attending Clinician [phone] Corrine Llanos RN Attending Clinician UnavailRolan Varma PA-C Attending Clinician [phone] Lab, [facility] Attending Clinician Unavailable MANNY CARMEN Attending Clinician Unavailable Manny Marley Attending Clinician [phone] Unknown, Attending Attending Clinician Unavailab BROOKLYN Silva Attending Clinician Unavailable Brooklyn Garduno MD Attending Clinician [phone] Liu Carlton Attending Clinician Unavailable HAYLEY CASTILLO Attending Clinician Unavailable 2, [facility] Attending Clinician Unavailable KAREN TAMAYO Attending Clinician Unavailable Alena Erickson MD Attending Clinician [phone] Deep ROSIN BARREL FILLER, Roma Robledo Attending Clinician [phone] EMELY CANALES Attending Clinician Unavailable Chinmay Aly DO Attending Clinician [phone] Nurse, Tony Maguire Pedi Attending Clinician UnavailALENA Ghosh Attending Clinician Unavailromán MCGINNISP, Karen Attending Clinician [phone] Jasmyn Arreguin MD Attending Clinician Eeg, Sapna Pedi Neuro Attending Clinician Unavaila JASMYN Franklin Attending Clinician Unavailable Nurse, [facility] Attending Clinician Un available Urology, [facility] Pedi Attending Clinician Lizandro Morgan MD, Demetrius Attending Clinician Urology, Sapna Pedi Attending Clinician Unavailchris Guerrero MD, Apryl Attending Clinician [phone] ROLAN CASAREZ Admitting Clinician Unavailable ALEXANDRIA WHITMORE Admitting Clinician Unavailable Payers Payer Name Policy Type Policy Number Effective Date Expirati on Date Source [employer] MEDICAID [id number] 2016 00:00:00 [facility] [id number] 2022 00:00:00 [facility] [id number] 2022 00:00:00 [place] [id number] 2021 00:00:00 2022 00:00:00 Problems Condition Name Condition Details Condition Category Status Onset Date Resolution Date Last Treatment Date Treating Clinician Comments Source Nexplanon in place Nexplanon in place Disease Active 08-03 00:00: 00 [facility] Burning with urination Burning with urination Disease Active -14 00:00: 00 [facility] Chronic nonintract able headache, unspecifie d headache type Chronic nonintract able headache, unspecifie d headache type Disease Active 3-13 00:00: 00 [facility] Obesity peds (BMI >=95 percentile ) Obesity peds (BMI >=95 percentile ) Disease Active 7-19 00:00: 00 [facility] Generalize d epilepsy Generalize d epilepsy [...] will reevaluat e next visit." F/u 10/13/2018 [facility] 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 Disease Active 10-07 00:00: 00 [facility] Weight gain Weight gain Disease Active 10-07 00:00: 00 [facility] Migraine without aura and without status migrainosu s, not intractabl e Migraine without aura and without status migrainosu s, not intractabl e Disease Active 03-30 00:00: 00 [facility] Family history of breast cancer Family history of breast cancer Disease Active 2017-03 00:00: 00 [facility] Depo-Prove ra contracept thea status Depo-Prove ra contracept thea status Disease Active 2017-03 00:00: 00 [facility] Breast asymmetry in female Breast asymmetry in female Disease Active 2017-03 00:00: 00 [facility] Asthma Asthma Disease Active [facility] Allergic rhinitis Allergic rhinitis Disease Active [facility] Family history of familial hyperchole sterolemia Family history of familial hyperchole sterolemia Disease Active [facility] Allergies, Adverse Reactions, Alerts Allergy Name Allergy Type Status Severity Reaction(s) Onset Date Inactive Date Treating Clinician Comments Source LEVETIRA CETAM DRUG INGREDI Active Other-Cmnt 2021-03 00:00: 00 [facility] Levetira cetam Propensi ty to adverse reaction s Active Other - See comments 2021-03 00:00: 00 Numb mouth, and sleepy [facility] Solifena lizabeth Succinat e Propensi ty to adverse reaction s Active Swelling 2016-03 00:00: 00 [facility] LIZABETH SUCCINAT E DRUG INGREDI Active Rash 2016-03 00:00: 00 [facility] Solifena lizabeth Propensi ty to adverse reaction s Active Swelling 2011-03 00:00: 00 Per mom, after increasin g the dose to 10 mg , patient experienc ed swelling to the face. [facility] SOLIFENA LIZABETH DRUG INGREDI Active High Swelling 2011-03 00:00: 00 [facility] Social History Social Habit Start Date Stop Date Quantity Comments Source History of tobacco use Passive smoker [facility] Alcohol intake 2023-04-23 00:00:00 2023-04-23 00:00:00 Current non-drinker of alcohol (finding) [facility] Exposure to SARS-CoV-2 (event) 2022-08-01 00:00:00 2022-08-11 11:13:00 Not sure [facility] History of Social function 2022-08-11 00:00:00 2022-08-11 00:00:00 [facility] Tobacco use and exposure 2022-01-02 00:00:00 2022-01-02 00:00:00 Smokeless tobacco non-user [facility] Sex Assigned At 2002 00:00:00 2000 00:00:00 [facility] Smoking Status Start Date Stop Date Source Never smoked tobacco [facility] Medications Ordered Medication Name Filled Medication Name Start Date Stop Date Current Medication? Ordering Clinician Indication Dosage Frequency Signature (SIG) Comments Components Source Lactobacill us acidophilus (PROBIOTIC ORAL) 04-23 14:49: 45 Yes Take by mouth. [facility] Lactobacill us acidophilus (PROBIOTIC ORAL) 04-23 14:49: 45 Yes Take by mouth. [facility] Lactobacill us acidophilus (PROBIOTIC ORAL) 04-23 14:49: 45 Yes Take by mouth. [facility] ofloxacin 0.3 % otic drops 08-11 00:00: 00 08-19 04:59 :00 No [id number] 5[drp] Place 5 Drops in right ear in the morning and 5 Drops in the evening. Do all this for 7 days. [facility] No known medications 2021-03 13:07: 23 No No known medication s [facility] No known medications 2021-03 13:07: 23 No No known medication [facility] No known medications 2021-03 13:07: 23 No No known medication [facility] No known medications 2021-03 13:07: 23 No No known medication [facility] No known medications 2021-03 13:07: 23 No No known medication [facility] No known medications 2021-03 13:07: 23 No No known medication [facility] etonogestre L (NEXPLANON) implant 68 mg 2021-03 16:15: 00 01-31 15:23 :00 No [id number] [facility] 68 mg 2021-03 16:15: 00 01-31 15:23 :00 No [id number] 68mg 68 mg, Subdermal, ONCE NOW, 1 dose, On Thu01/31/22 at 1015, Routine
Use approved by: [employer] [facility] etonogestre L (NEXPLANON) implant 68 mg 2021-03 16:15: 00 01-31 15:23 :00 No [id number] 68mg [facility] etonogestre L (NEXPLANON) implant 68 mg 2021-03 16:15: 00 01-31 15:23 :00 No [id number] 68mg 68 mg, Subdermal, ONCE NOW, 1 dose, On Thu01/31/22 at 1015, Routine
Use approved by: [employer] [facility] etonogestre L (NEXPLANON) implant 68 mg 2021-03 16:15: 00 01-31 15:23 :00 No [id number] 68mg [facility] etonogestre L (NEXPLANON) implant 68 mg 2021-03 16:15: 00 01-31 15:23 :00 No [id number] 68mg 68 mg, Subdermal, ONCE NOW, 1 dose, On Thu01/31/22 at 1015, Routine
Use approved by: [employer] [facility] No known medications 2021-03 08:48: 39 No No known medication s [facility] No known medications 2021-03 08:48: 39 No No known medication s [facility] No known medications 2021-03 09:58: 47 No No known medication s [facility] No known medications 2021-03 09:58: 47 No No known medication s [facility] No known medications 2021-03 09:58: 47 No No known medication s [facility] No known medications 2021-03 09:58: 47 No No known medication s [facility] calcium chloride 100 mg/mL (10 %) syringe 1,000 mg 2020-03 04:30: 00 01-06 03:55 :00 No 1000mg 1,000 mg, Intravenou s, ONCE, 1 dose, On Thu21 at 2330, STAT [facility] levETIRAcet am (KEPPRA) in NACL (ISO-OS) 1,000 mg/100 mL RTU 2020-03 03:15: 00 01-06 02:51 :00 No 1000mg 1,000 mg, IV Infusion, ONCE, 1 dose, On 01/05/21 at 2215, Administer over 15 Minutes, 100 mL [facility] NaCl 0.9% (NS) IV infusion 1,000 mL 2020-03 03:00: 00 01-06 04:30 :00 No 1000mL at 999 mL/hr, IV Infusion, ONCE, 1 dose, On 01/05/21 at 2200, STEFANIA [facility] NaCl 0.9% (NS) bolus infusion 1,000 mL 2020-03 03:00: 00 01-06 04:30 :00 No 1000mL at 999 mL/hr, 1,000 mL, IV Infusion, ONCE, 1 dose, On 01/05/21 at 2200, STEFANIA [facility] No known medications 2020-0316 23:25: 12 No [facility] No known medications 2020-03 23:25: 12 No [facility] No known medications 2020-03 016 23:25: 12 No No known medication s [facility] ciprofloxac in HCl 250 mg tablet 2020-03 00:00: 00 01-09 04:59 :00 No [id number] 250mg Take 1 tablet by mouth 2 (two) times daily for 3 days. [facility] fluticasone propionate 50 mcg/actuati on nasal spray 04-02 00:00: 00 Yes [id number] 1{spray } Use 1 [facility] in each nostril daily. [facility] fluticasone propionate 50 mcg/actuati on nasal spray - 00:00: 00 Yes [id number] 1{spray } Use 1 [facility] in each nostril daily. [facility] fluticasone propionate 50 mcg/actuati on nasal spray 04-02 00:00: 00 Yes [id number] 1{spray } Use 1 [facility] in each nostril daily. [facility] fluticasone propionate 50 mcg/actuati on nasal spray 04-02 00:00: 00 Yes [id number] 1{spray } Use 1 [facility] in each nostril daily. [facility] fluticasone propionate 50 mcg/actuati on nasal spray 04-02 00:00: 00 Yes [id number] 1{spray } Use 1 [facility] in each nostril daily. [facility] fluticasone propionate 50 mcg/actuati on nasal spray 04-02 00:00: 00 Yes [id number] 1{spray } Use 1 [facility] in each nostril daily. [facility] fluticasone propionate 50 mcg/actuati on nasal spray 04-02 00:00: 00 01-05 00:00 :00 No [id number] 1{spray } Use 1 [facility] in each nostril daily. [facility] ibuprofen 600 mg tablet 2019-03 00:00: 00 Yes [id number] 600mg Take 1 tablet by mouth every 8 (eight) hours as needed for Pain (scale 4-6) (headache) . [facility] cetirizine 10 mg tablet 2019-03 00:00: 00 Yes [id number] 10mg Take 1 tablet by mouth daily. [facility] fluticasone propionate 50 mcg/actuati on nasal spray 2019-03 00:00: 00 Yes [id number] 1{spray } Use 1 [facility] in each nostril daily. [facility] ibuprofen 600 mg tablet 2019-03 00:00: 00 Yes [id number] 600mg Take 1 tablet by mouth every 8 (eight) hours as needed for Pain (scale 4-6) (headache) . [facility] cetirizine 10 mg tablet 2019-03 00:00: 00 Yes [id number] 10mg Take 1 tablet by mouth daily. [facility] fluticasone propionate 50 mcg/actuati on nasal spray 2019-03 00:00: 00 Yes [id number] 1{spray } Use 1 [facility] in each nostril daily. [facility] cetirizine 10 mg tablet 2019-03 00:00: 00 Yes [id number] 10mg Take 1 tablet by mouth daily. [facility] cetirizine 10 mg tablet 2019-03 00:00: 00 Yes [id number] 10mg Take 1 tablet by mouth daily. [facility] cetirizine 10 mg tablet 2019-03 00:00: 00 Yes [id number] 10mg Take 1 tablet by mouth daily. [facility] cetirizine 10 mg tablet 2019-03 00:00: 00 Yes [id number] 10mg Take 1 tablet by mouth daily. [facility] cetirizine 10 mg tablet 2019-03 00:00: 00 Yes [id number] 10mg Take 1 tablet by mouth daily. [facility] cetirizine 10 mg tablet 2019-03 00:00: 00 Yes [id number] 10mg Take 1 tablet by mouth daily. [facility] cetirizine 10 mg tablet 2019-03 00:00: 00 Yes [id number] 10mg Take 1 tablet by mouth daily. [facility] cetirizine 10 mg tablet 2019-03 00:00: 00 Yes [id number] 10mg Take 1 tablet by mouth daily. [facility] cetirizine 10 mg tablet 2019-03 00:00: 00 Yes [id number] 10mg Take 1 tablet by mouth daily. [facility] cetirizine 10 mg tablet 2019-03 00:00: 00 Yes [id number] 10mg Take 1 tablet by mouth daily. [facility] cetirizine 10 mg tablet 2019-03 00:00: 00 Yes [id number] 10mg Take 1 tablet by mouth daily. [facility] cetirizine 10 mg tablet 2019-03 00:00: 00 Yes [id number] 10mg Take 1 tablet by mouth daily. [facility] cetirizine 10 mg tablet 2019-03 2-04 00:00: 00 01-05 00:00 :00 No [id number] 10mg Take 1 tablet by mouth daily. [facility] ibuprofen 600 mg tablet 2019-03 2- 00:00: 00 04-02 00:00 :00 No [id number] 600mg Take 1 tablet by mouth every 8 (eight) hours as needed for Pain (scale 4-6) (headache) . [facility] fluticasone propionate 50 mcg/actuati on nasal spray 2019-03 2 00:00: 00 04-02 00:00 :00 No [id number] 1{spray } Use 1 [facility] in each nostril daily. [facility] ibuprofen 600 mg tablet 2019-03 2 00:00: 00 04-02 00:00 :00 No [id number] 600mg Take 1 tablet by mouth every 8 (eight) hours as needed for Pain (scale 4-6) (headache) . [facility] fluticasone propionate 50 mcg/actuati on nasal spray 2019-03 2 00:00: 00 04-02 00:00 :00 No [id number] 1{spray } Use 1 [facility] in each nostril daily. [facility] fluticasone propionate 50 mcg/actuati on nasal spray 2019-03 2 00:00: 00 04-02 00:00 :00 No [id number] 1{spray } Use 1 [facility] in each nostril daily. [facility] ibuprofen 600 mg tablet 2019-03 2-04 00:00: 00 04-02 00:00 :00 No [id number] 600mg Take 1 tablet by mouth every 8 (eight) hours as needed for Pain (scale 4-6) (headache) . [facility] fluticasone propionate 50 mcg/actuati on nasal spray 2019-03 2-04 00:00: 00 04-02 00:00 :00 No [id number] 1{spray } Use 1 [facility] in each nostril daily. [facility] ibuprofen 600 mg tablet 2019-03 2 00:00: 00 04-02 00:00 :00 No [id number] 600mg Take 1 tablet by mouth every 8 (eight) hours as needed for Pain (scale 4-6) (headache) . [facility] fluticasone propionate 50 mcg/actuati on nasal spray 2019-03 00:00: 00 04-02 00:00 :00 No [id number] 1{spray } Use 1 [facility] in each nostril daily. [facility] ibuprofen 600 mg tablet 2019-03 00:00: 00 04-02 00:00 :00 No [id number] 600mg Take 1 tablet by mouth every 8 (eight) hours as needed for Pain (scale 4-6) (headache) . [facility] fluticasone propionate 50 mcg/actuati on nasal spray 2019-03 00:00: 00 04-02 00:00 :00 No [id number] 1{spray } Use 1 [facility] in each nostril daily. [facility] ibuprofen 600 mg tablet 2019-03 00:00: 00 04-02 00:00 :00 No [id number] 600mg Take 1 tablet by mouth every 8 (eight) hours as needed for Pain (scale 4-6) (headache) . [facility] fluticasone propionate 50 mcg/actuati on nasal spray 2019-03 00:00: 00 04-02 00:00 :00 No [id number] 1{spray } Use 1 [facility] in each nostril daily. [facility] etonogestre L (NEXPLANON) implant 68 mg 2019-03 22:45: 00 01-29 21:43 :00 No 68mg [facility] etonogestre L (NEXPLANON) implant 68 mg 2019-03 22:45: 00 01-29 21:43 :00 No 68mg 68 mg, Subdermal, ONCE NOW, 1 dose, 01/30/20 at 1645, Routine
Use approved by: [employer] [facility] etonogestre L (NEXPLANON) implant 68 mg 2019-03 22:45: 00 01-29 21:43 :00 No 68mg [facility] etonogestre L (NEXPLANON) implant 68 mg 2019-03 22:45: 00 01-29 21:43 :00 No 68mg 68 mg, Subdermal, ONCE NOW, 1 dose, 01/30/20 at 1645, Routine
Use approved by: [employer] [facility] topiramate (TOPAMAX) 25 mg tablet 10-11 00:00: 00 Yes [id number] 25mg Take 1 tablet by mouth 2 (two) times daily. [facility] topiramate (TOPAMAX) 25 mg tablet 10-11 00:00: 00 Yes [id number] 25mg Take 1 tablet by mouth 2 (two) times daily. [facility] topiramate (TOPAMAX) 25 mg tablet 10-11 00:00: 00 Yes [id number] 25mg Take 1 tablet by mouth 2 (two) times daily. [facility] topiramate (TOPAMAX) 25 mg tablet 10-11 00:00: 00 Yes [id number] 25mg Take 1 tablet by mouth 2 (two) times daily. [facility] topiramate (TOPAMAX) 25 mg tablet 0 10-11 00:00: 00 Yes [id number] 25mg Take 1 tablet by mouth 2 (two) times daily. [facility] topiramate (TOPAMAX) 25 mg tablet 0 10-11 00:00: 00 Yes [id number] 25mg Take 1 tablet by mouth 2 (two) times daily. [facility] topiramate (TOPAMAX) 25 mg tablet 0 10-11 00:00: 00 Yes [id number] 25mg Take 1 tablet by mouth 2 (two) times daily. [facility] topiramate (TOPAMAX) 25 mg tablet 2019-0 10-11 00:00: 00 Yes [id number] 25mg Take 1 tablet by mouth 2 (two) times daily. [facility] topiramate (TOPAMAX) 25 mg tablet 2019-0 -22 00:00: 00 Yes [id number] 25mg Take 1 tablet by mouth 2 (two) times daily. [facility] topiramate (TOPAMAX) 25 mg tablet 2019-0 7-22 00:00: 00 Yes [id number] 25mg Take 1 tablet by mouth 2 (two) times daily. [facility] topiramate (TOPAMAX) 25 mg tablet 0 10-11 00:00: 00 02-23 00:00 :00 No [id number] 25mg Take 1 tablet by mouth 2 (two) times daily. [facility] topiramate (TOPAMAX) 25 mg tablet 0 10-11 00:00: 00 02-23 00:00 :00 No [id number] 25mg Take 1 tablet by mouth 2 (two) times daily. [facility] topiramate (TOPAMAX) 25 mg tablet 0 16 20:30: 10-05 00:00 :00 No 25mg Take 25 mg by mouth. [facility] topiramate (TOPAMAX) 25 mg tablet 2019-0 -16 20:30: 10-05 00:00 :00 No 25mg Take 25 mg by mouth. [facility] topiramate (TOPAMAX) 25 mg tablet 2019-0 16 00:00: 00 Yes 25mg Take 1 tablet by mouth 2 (two) times daily. [facility] omeprazole 20 mg capsule 2019-0 -16 00:00: 00 Yes [id number] 20mg Take 1 capsule by mouth daily. [facility] topiramate (TOPAMAX) 25 mg tablet 2019-0 -16 00:00: 00 Yes 25mg Take 1 tablet by mouth 2 (two) times daily. [facility] omeprazole 20 mg capsule 2019-0 7-16 00:00: 00 Yes [id number] 20mg Take 1 capsule by mouth daily. [facility] topiramate (TOPAMAX) 25 mg tablet 2019-0 -16 00:00: 00 Yes 25mg Take 1 tablet by mouth 2 (two) times daily. [facility] omeprazole 20 mg capsule 2020-0 7-16 00:00: 00 Yes [id number] 20mg Take 1 capsule by mouth daily. [facility] capsule 2020-0 7-16 00:00: 00 Yes [id number] 20mg Take 1 capsule by mouth daily. [facility] omep[facility]ole 20 mg capsule 2020-0 7-16 00:00: 00 Yes [id number] 20mg Take 1 capsule by mouth daily. [facility] omep[facility]ole 20 mg capsule 2020-0 7-16 00:00: 00 Yes [id number] 20mg Take 1 capsule by mouth daily. [facility] omeprazole 20 mg capsule 2020-0 7-16 00:00: 00 Yes [id number] 20mg Take 1 capsule by mouth daily. [facility] omeprazole 20 mg capsule 2020-0 7-16 00:00: 00 Yes [id number] 20mg Take 1 capsule by mouth daily. [facility] omeprazole 20 mg capsule 2020-0 7-16 00:00: 00 Yes [id number] 20mg Take 1 capsule by mouth daily. [facility] omeprazole 20 mg capsule 2020-0 7-16 00:00: 00 Yes [id number] 20mg Take 1 capsule by mouth daily. [facility] omeprazole 20 mg capsule 2020-0 7-16 00:00: 00 Yes [id number] 20mg Take 1 capsule by mouth daily. [facility] omeprazole 20 mg capsule 2020-0 7-16 00:00: 00 Yes [id number] 20mg Take 1 capsule by mouth daily. [facility] omeprazole 20 mg capsule 2020-0 7-16 00:00: 00 Yes [id number] 20mg Take 1 capsule by mouth daily. [facility] omeprazole 20 mg capsule 2020-0 7-16 00:00: 00 Yes [id number] 20mg Take 1 capsule by mouth daily. [facility] omeprazole 20 mg capsule 2020-0 7-16 00:00: 00 Yes [id number] 20mg Take 1 capsule by mouth daily. [facility] omeprazole 20 mg capsule 2020-0 7-16 00:00: 00 Yes [id number] 20mg Take 1 capsule by mouth daily. [facility] omeprazole 20 mg capsule 2019-0 16 00:00: 00 Yes [id number] 20mg Take 1 capsule by mouth daily. [facility] omeprazole 20 mg capsule 2019-0 -16 00:00: 00 02-23 00:00 :00 No [id number] 20mg Take 1 capsule by mouth daily. [facility] omeprazole 20 mg capsule 2019-0 -16 00:00: 00 02-23 00:00 :00 No [id number] 20mg Take 1 capsule by mouth daily. [facility] topiramate (TOPAMAX) 25 mg tablet 0 16 00:00: 00 10-11 00:00 :00 No 25mg Take 1 tablet by mouth 2 (two) times daily. [facility] topiramate (TOPAMAX) 25 mg tablet 0 16 00:00: 00 10-11 00:00 :00 No 25mg Take 1 tablet by mouth 2 (two) times daily. [facility] topiramate (TOPAMAX) 25 mg tablet 2019-0 16 00:00: 00 10-11 00:00 :00 No 25mg Take 1 tablet by mouth 2 (two) times daily. [facility] topiramate (TOPAMAX) 25 mg tablet 2019-0 16 00:00: 10-11 00:00 :00 No 25mg Take 1 tablet by mouth 2 (two) times daily. [facility] topiramate (TOPAMAX) 25 mg tablet 2019-0 16 00:00: 00 10-11 00:00 :00 No 25mg Take 1 tablet by mouth 2 (two) times daily. [facility] meclizine 25 mg tablet 0 09-26 00:00: 00 Yes 25mg Take 25 mg by mouth as needed. [facility] meclizine 25 mg tablet 0 09-26 00:00: 00 Yes 25mg Take 25 mg by mouth as needed. [facility] meclizine 25 mg tablet 09-26 00:00: 00 Yes 25mg Take 25 mg by mouth as needed. [facility] meclizine 25 mg tablet 09-26 00:00: 00 Yes 25mg Take 25 mg by mouth as needed. [facility] meclizine 25 mg tablet 09-26 00:00: 00 Yes 25mg Take 25 mg by mouth as needed. [facility] meclizine 25 mg tablet 09-26 00:00: 00 Yes 25mg Take 25 mg by mouth as needed. [facility] meclizine 25 mg tablet 09-26 00:00: 00 Yes 25mg Take 25 mg by mouth as needed. [facility] meclizine 25 mg tablet 09-26 00:00: 00 Yes 25mg Take 25 mg by mouth as needed. [facility] meclizine 25 mg tablet 09-26 00:00: 00 Yes 25mg Take 25 mg by mouth as needed. [facility] meclizine 25 mg tablet 09-26 00:00: 00 Yes 25mg Take 25 mg by mouth as needed. [facility] [facility] tablet 09-26 00:00: 00 Yes 25mg Take 25 mg by mouth as needed. [facility] meclizine 25 mg tablet 09-26 00:00: 00 Yes 25mg Take 25 mg by mouth as needed. [facility] mecl[facility]ine 25 mg tablet 09-26 00:00: 00 Yes 25mg Take 25 mg by mouth as needed. [facility] mecl[facility]ine 25 mg tablet 09-26 00:00: 00 Yes 25mg Take 25 mg by mouth as needed. [facility] mecl[facility]ine 25 mg tablet 09-26 00:00: 00 Yes 25mg Take 25 mg by mouth as needed. [facility] mecl[facility]ine 25 mg tablet 09-26 00:00: 00 Yes 25mg Take 25 mg by mouth as needed. [facility] meclizine 25 mg tablet 0 7-07 00:00: 00 Yes 25mg Take 25 mg by mouth as needed. [facility] meclizine 25 mg tablet 09-26 00:00: 02-23 00:00 :00 No 25mg Take 25 mg by mouth as needed. [facility] meclizine 25 mg tablet 09-26 00:00: 02-23 00:00 :00 No 25mg Take 25 mg by mouth as needed. [facility] Nitrofurant oin&Nit. Macrocryst (MACROBID) 100 mg capsule 0 -18 00:00: 00 Yes [id number] 100mg Take 1 capsule by mouth 2 (two) times daily. [facility] Nitrofurant oin&Nit. Macrocryst (MACROBID) 100 mg capsule 0 -18 00:00: 00 Yes [id number] 100mg Take 1 capsule by mouth 2 (two) times daily. [facility] Nitrofurant oin&Nit. Macrocryst (MACROBID) 100 mg capsule 0 -18 00:00: 00 Yes [id number] 100mg Take 1 capsule by mouth 2 (two) times daily. [facility] Nitrofurant oin&Nit. Macrocryst (MACROBID) 100 mg capsule 18 00:00: 00 10-05 00:00 :00 No [id number] 100mg Take 1 capsule by mouth 2 (two) times daily. [facility] Nitrofurant oin&Nit. Macrocryst (MACROBID) 100 mg capsule 18 00:00: 00 10-05 00:00 :00 No [id number] 100mg Take 1 capsule by mouth 2 (two) times daily. [facility] etonogestre l (NEXPLANON) implant 68 mg 2019- 5-14 20:45: 00 08-03 19:36 :00 No 68mg [facility] etonogestre l (NEXPLANON) implant 68 mg 2019- 5-14 20:45: 00 08-03 19:36 :00 No 68mg 68 mg, Subdermal, ONCE NOW, 1 dose, Gladys 08/04/19 at 1545, Routine
Use approved by: [employer] [facility] etonogestre l (NEXPLANON) implant 68 mg 08-03 20:45: 00 08-03 19:36 :00 No 68mg [facility] etonogestre l (NEXPLANON) implant 68 mg 08-03 20:45: 00 08-03 19:36 :00 No 68mg 68 mg, Subdermal, ONCE NOW, 1 dose, Gladys 08/04/19 at 1545, Routine
Use approved by: [employer] [facility] norelgestro min-ethinyl estradiol 150-35 mcg/24 hr patch 3 00:00: 00 Yes [id number] 1{patch } Apply 1 Patch to skin weekly. [facility] norelgestro min-ethinyl estradiol 150-35 mcg/24 hr patch 06-14 00:00: 00 Yes [id number] 1{patch } Apply 1 Patch to skin weekly. [facility] norelgestro min-ethinyl estradiol 150-35 mcg/24 hr patch 325 00:00: 00 Yes [id number] 1{patch } Apply 1 Patch to skin weekly. [facility] norelgestro min-ethinyl estradiol 150-35 mcg/24 hr patch 325 00:00: 00 Yes [id number] 1{patch } Apply 1 Patch to skin weekly. [facility] norelgestro min-ethinyl estradiol 150-35 mcg/24 hr patch 3-25 00:00: 00 Yes [id number] 1{patch } Apply 1 Patch to skin weekly. [facility] norelgestro min-ethinyl estradiol 150-35 mcg/24 hr patch 325 00:00: 00 08-03 00:00 :00 No [id number] 1{patch } Apply 1 Patch to skin weekly. [facility] norelgestro min-ethinyl estradiol 150-35 mcg/24 hr patch 325 00:00: 00 08-03 00:00 :00 No [id number] 1{patch } Apply 1 Patch to skin weekly. [facility] ibuprofen 600 mg tablet 05-22 00:00: 00 Yes [id number] 600mg Take 1 tablet by mouth every 8 (eight) hours as needed for Pain (scale 4-6) (headache) . [facility] ibuprofen 600 mg tablet 05-22 00:00: 00 Yes [id number] 600mg Take 1 tablet by mouth every 8 (eight) hours as needed for Pain (scale 4-6) (headache) . [facility] ibuprofen 600 mg tablet 05-22 00:00: 00 Yes [id number] 600mg Take 1 tablet by mouth every 8 (eight) hours as needed for Pain (scale 4-6) (headache) . [facility] ibuprofen 600 mg tablet 05-22 00:00: 00 Yes [id number] 600mg Take 1 tablet by mouth every 8 (eight) hours as needed for Pain (scale 4-6) (headache) . [facility] ibuprofen 600 mg tablet 05-22 00:00: 00 Yes [id number] 600mg Take 1 tablet by mouth every 8 (eight) hours as needed for Pain (scale 4-6) (headache) . [facility] ibuprofen 600 mg tablet 05-22 00:00: 00 Yes [id number] 600mg Take 1 tablet by mouth every 8 (eight) hours as needed for Pain (scale 4-6) (headache) . [facility] ibuprofen 600 mg tablet 05-22 00:00: 00 Yes [id number] 600mg Take 1 tablet by mouth every 8 (eight) hours as needed for Pain (scale 4-6) (headache) . [facility] ibuprofen 600 mg tablet 05-22 00:00: 00 Yes [id number] 600mg Take 1 tablet by mouth every 8 (eight) hours as needed for Pain (scale 4-6) (headache) . [facility] ibuprofen 600 mg tablet 05-22 00:00: 00 Yes [id number] 600mg Take 1 tablet by mouth every 8 (eight) hours as needed for Pain (scale 4-6) (headache) . [facility] ibuprofen 600 mg tablet 2019-0 3 00:00: 00 Yes [id number] 600mg Take 1 tablet by mouth every 8 (eight) hours as needed for Pain (scale 4-6) (headache) . [facility] ibuprofen 600 mg tablet 2020-0 05-22 00:00: 00 Yes [id number] 600mg Take 1 tablet by mouth every 8 (eight) hours as needed for Pain (scale 4-6) (headache) . [facility] ibuprofen 600 mg tablet 2020-0 05-22 00:00: 00 Yes [id number] 600mg Take 1 tablet by mouth every 8 (eight) hours as needed for Pain (scale 4-6) (headache) . [facility] ibuprofen 600 mg tablet 2019-0 05-22 00:00: 00 Yes [id number] 600mg Take 1 tablet by mouth every 8 (eight) hours as needed for Pain (scale 4-6) (headache) . [facility] ibuprofen 600 mg tablet 2019-0 05-22 00:00: 00 Yes [id number] 600mg Take 1 tablet by mouth every 8 (eight) hours as needed for Pain (scale 4-6) (headache) . [facility] ibuprofen 600 mg tablet 2019-0 05-22 00:00: 00 Yes [id number] 600mg Take 1 tablet by mouth every 8 (eight) hours as needed for Pain (scale 4-6) (headache) . [facility] ibuprofen 600 mg tablet 0 05-22 00:00: 00 Yes [id number] 600mg Take 1 tablet by mouth every 8 (eight) hours as needed for Pain (scale 4-6) (headache) . [facility] ibuprofen 600 mg tablet 2020-0 302 00:00: 00 Yes [id number] 600mg Take 1 tablet by mouth every 8 (eight) hours as needed for Pain (scale 4-6) (headache) . [facility] ibuprofen 600 mg tablet 2020-0 3- 00:00: 00 Yes [id number] 600mg Take 1 tablet by mouth every 8 (eight) hours as needed for Pain (scale 4-6) (headache) . [facility] ibuprofen 600 mg tablet 2020-0 3 00:00: 00 Yes [id number] 600mg Take 1 tablet by mouth every 8 (eight) hours as needed for Pain (scale 4-6) (headache) . [facility] ibuprofen 600 mg tablet 2020-0 05-22 00:00: 00 Yes [id number] 600mg Take 1 tablet by mouth every 8 (eight) hours as needed for Pain (scale 4-6) (headache) . [facility] ibuprofen 600 mg tablet 0 05-22 00:00: 00 Yes [id number] 600mg Take 1 tablet by mouth every 8 (eight) hours as needed for Pain (scale 4-6) (headache) . [facility] ibuprofen 600 mg tablet 2020-0 05-22 00:00: 00 Yes [id number] 600mg Take 1 tablet by mouth every 8 (eight) hours as needed for Pain (scale 4-6) (headache) . [facility] ibuprofen 600 mg tablet 2019-0 05-22 00:00: 00 Yes [id number] 600mg Take 1 tablet by mouth every 8 (eight) hours as needed for Pain (scale 4-6) (headache) . [facility] ibuprofen 600 mg tablet 0 05-22 00:00: 00 Yes [id number] 600mg Take 1 tablet by mouth every 8 (eight) hours as needed for Pain (scale 4-6) (headache) . [facility] ibuprofen 600 mg tablet 2020-0 05-22 00:00: 00 Yes [id number] 600mg Take 1 tablet by mouth every 8 (eight) hours as needed for Pain (scale 4-6) (headache) . [facility] ibuprofen 600 mg tablet 2020-0 05-22 00:00: 00 Yes [id number] 600mg Take 1 tablet by mouth every 8 (eight) hours as needed for Pain (scale 4-6) (headache) . [facility] ibuprofen 600 mg tablet 2020-0 05-22 00:00: 00 Yes [id number] 600mg Take 1 tablet by mouth every 8 (eight) hours as needed for Pain (scale 4-6) (headache) . [facility] ibuprofen 600 mg tablet 2020-0 3 00:00: 00 Yes [id number] 600mg Take 1 tablet by mouth every 8 (eight) hours as needed for Pain (scale 4-6) (headache) . [facility] ibuprofen 600 mg tablet 05-22 00:00: 00 Yes [id number] 600mg Take 1 tablet by mouth every 8 (eight) hours as needed for Pain (scale 4-6) (headache) . [facility] ibuprofen 600 mg tablet 05-22 00:00: 00 Yes [id number] 600mg Take 1 tablet by mouth every 8 (eight) hours as needed for Pain (scale 4-6) (headache) . [facility] ibuprofen 600 mg tablet 05-22 00:00: 00 Yes [id number] 600mg Take 1 tablet by mouth every 8 (eight) hours as needed for Pain (scale 4-6) (headache) . [facility] ibuprofen 600 mg tablet 05-22 00:00: 00 02-23 00:00 :00 No [id number] 600mg Take 1 tablet by mouth every 8 (eight) hours as needed for Pain (scale 4-6) (headache) . [facility] ibuprofen 600 mg tablet 05-22 00:00: 00 02-23 00:00 :00 No [id number] 600mg Take 1 tablet by mouth every 8 (eight) hours as needed for Pain (scale 4-6) (headache) . [facility] medroxyPROG ESTERone (DEPO-PROVE RA) injection 150 mg 2 23:00: 05-16 21:50 :00 No 150mg [facility] medroxyPROG ESTERone (DEPO-PROVE RA) injection 150 mg 05-16 23:00: 05-16 21:50 :00 No 150mg 150 mg, Intramuscu lar, ONCE, 1 dose, Thu05/16/19 at 1700, Routine [facility] oxybutynin chloride 5 mg tablet 05-03 00:00: 00 Yes [id number] 5mg Take 1 tablet by mouth 2 (two) times daily. [facility] oxybutynin chloride 5 mg tablet 2020-0 2-11 00:00: 00 Yes [id number] 5mg Take 1 tablet by mouth 2 (two) times daily. [facility] oxybutynin chloride 5 mg tablet 2020-0 2-11 00:00: 00 Yes [id number] 5mg Take 1 tablet by mouth 2 (two) times daily. [facility] oxybutynin chloride 5 mg tablet 2020-0 2-11 00:00: 00 Yes [id number] 5mg Take 1 tablet by mouth 2 (two) times daily. [facility] oxybutynin chloride 5 mg tablet 2020-0 2-11 00:00: 00 Yes [id number] 5mg Take 1 tablet by mouth 2 (two) times daily. [facility] oxybutynin chloride 5 mg tablet 2020-0 2-11 00:00: 00 Yes [id number] 5mg Take 1 tablet by mouth 2 (two) times daily. [facility] oxybutynin chloride 5 mg tablet 2020-0 2-11 00:00: 00 Yes [id number] 5mg Take 1 tablet by mouth 2 (two) times daily. [facility] oxybutynin chloride 5 mg tablet 2020-0 2-11 00:00: 00 Yes [id number] 5mg Take 1 tablet by mouth 2 (two) times daily. [facility] oxybutynin chloride 5 mg tablet 2019-0 2-11 00:00: 00 Yes [id number] 5mg Take 1 tablet by mouth 2 (two) times daily. [facility] oxybutynin chloride 5 mg tablet 2020-0 2-11 00:00: 00 Yes [id number] 5mg Take 1 tablet by mouth 2 (two) times daily. [facility] oxybutynin chloride 5 mg tablet 2020-0 2-11 00:00: 00 Yes [id number] 5mg Take 1 tablet by mouth 2 (two) times daily. [facility] oxybutynin chloride 5 mg tablet 2020-0 2-11 00:00: 00 Yes [id number] 5mg Take 1 tablet by mouth 2 (two) times daily. [facility] oxybutynin chloride 5 mg tablet 2020-0 2-11 00:00: 00 Yes [id number] 5mg Take 1 tablet by mouth 2 (two) times daily. [facility] oxybutynin chloride 5 mg tablet 2019-0 2-11 00:00: 00 Yes [id number] 5mg Take 1 tablet by mouth 2 (two) times daily. [facility] oxybutynin chloride 5 mg tablet 2019-0 2-11 00:00: 00 Yes [id number] 5mg Take 1 tablet by mouth 2 (two) times daily. [facility] oxybutynin chloride 5 mg tablet 2019-0 2-11 00:00: 00 Yes [id number] 5mg Take 1 tablet by mouth 2 (two) times daily. [facility] oxybutynin chloride 5 mg tablet 2019-0 2-11 00:00: 00 Yes [id number] 5mg Take 1 tablet by mouth 2 (two) times daily. [facility] oxybutynin chloride 5 mg tablet 2019-0 2-11 00:00: 00 10-05 00:00 :00 No [id number] 5mg Take 1 tablet by mouth 2 (two) times daily. [facility] oxybutynin chloride 5 mg tablet 2019-0 211 00:00: 00 10-05 00:00 :00 No [id number] 5mg Take 1 tablet by mouth 2 (two) times daily. [facility] polyethylen e glycol (MIRALAX) 17 gram/dose powder 2018-03 00:00: 00 Yes [id number] 1/2 cap twice daily [facility] polyethylen e glycol (MIRALAX) 17 gram/dose powder 2018-03 00:00: 00 Yes [id number] 1/2 cap twice daily [facility] polyethylen e glycol (MIRALAX) 17 gram/dose powder 2018-03 00:00: 00 Yes [id number] 1/2 cap twice daily [facility] polyethylen e glycol (MIRALAX) 17 gram/dose powder 2018-03 00:00: 00 Yes [id number] 1/2 cap twice daily [facility] polyethylen e glycol (MIRALAX) 17 gram/dose powder 2018-03 00:00: 00 Yes [id number] 1/2 cap twice daily [facility] polyethylen e glycol (MIRALAX) 17 gram/dose powder 2018-03 00:00: 00 Yes [id number] 1/2 cap twice daily [facility] polyethylen e glycol (MIRALAX) 17 gram/dose powder 2018-03 00:00: 00 Yes [id number] 1/2 cap twice daily [facility] polyethylen e glycol (MIRALAX) 17 gram/dose powder 2018-03 00:00: 00 Yes [id number] 1/2 cap twice daily [facility] polyethylen e glycol (MIRALAX) 17 gram/dose powder 2018-03 00:00: 00 Yes [id number] 1/2 cap twice daily [facility] polyethylen e glycol (MIRALAX) 17 gram/dose powder 2018-03 00:00: 00 Yes [id number] 1/2 cap twice daily [facility] polyethylen e glycol (MIRALAX) 17 gram/dose powder 2018-03 00:00: 00 Yes [id number] 1/2 cap twice daily [facility] polyethylen e glycol (MIRALAX) 17 gram/dose powder 2018-03 00:00: 00 Yes [id number] 1/2 cap twice daily [facility] polyethylen e glycol (MIRALAX) 17 gram/dose powder 2018-03 00:00: 00 Yes [id number] 1/2 cap twice daily [facility] polyethylen e glycol (MIRALAX) 17 gram/dose powder 2018-03 00:00: 00 Yes [id number] 1/2 cap twice daily [facility] polyethylen e glycol (MIRALAX) 17 gram/dose powder 2018-03 00:00: 00 Yes [id number] 1/2 cap twice daily [facility] polyethylen e glycol (MIRALAX) 17 gram/dose powder 2018-03 00:00: 00 Yes [id number] 1/2 cap twice daily [facility] polyethylen e glycol (MIRALAX) 17 gram/dose powder 2018-03 00:00: 00 Yes [id number] 1/2 cap twice daily [facility] polyethylen e glycol (MIRALAX) 17 gram/dose powder 2018-03 00:00: 00 Yes [id number] 1/2 cap twice daily [facility] polyethylen e glycol (MIRALAX) 17 gram/dose powder 2018-03 00:00: 00 Yes [id number] 1/2 cap twice daily [facility] polyethylen e glycol (MIRALAX) 17 gram/dose powder 2018-03 00:00: 00 Yes [id number] 1/2 cap twice daily [facility] polyethylen e glycol (MIRALAX) 17 gram/dose powder 2018-03 00:00: 00 Yes [id number] 1/2 cap twice daily [facility] polyethylen e glycol (MIRALAX) 17 gram/dose powder 2018-03 00:00: 00 Yes [id number] 1/2 cap twice daily [facility] polyethylen e glycol (MIRALAX) 17 gram/dose powder 2018-03 00:00: 00 Yes [id number] 1/2 cap twice daily [facility] polyethylen e glycol (MIRALAX) 17 gram/dose powder 2018-03 00:00: 00 Yes [id number] 1/2 cap twice daily [facility] polyethylen e glycol (MIRALAX) 17 gram/dose powder 2018-03 00:00: 00 Yes [id number] 1/2 cap twice daily [facility] polyethylen e glycol (MIRALAX) 17 gram/dose powder 2018-03 00:00: 00 Yes [id number] 1/2 cap twice daily [facility] polyethylen e glycol (MIRALAX) 17 gram/dose powder 2018-03 00:00: 00 Yes [id number] 1/2 cap twice daily [facility] polyethylen e glycol (MIRALAX) 17 gram/dose powder 2018-03 00:00: 00 Yes [id number] 1/2 cap twice daily [facility] polyethylen e glycol (MIRALAX) 17 gram/dose powder 2018-03 00:00: 00 Yes [id number] 1/2 cap twice daily [facility] polyethylen e glycol (MIRALAX) 17 gram/dose powder 2018-03 00:00: 00 Yes [id number] 1/2 cap twice daily [facility] polyethylen e glycol (MIRALAX) 17 gram/dose powder 2018-03 00:00: 00 Yes [id number] 1/2 cap twice daily [facility] polyethylen e glycol (MIRALAX) 17 gram/dose powder 2018-03 00:00: 00 Yes [id number] 1/2 cap twice daily [facility] polyethylen e glycol (MIRALAX) 17 gram/dose powder 2018-03 00:00: 00 Yes [id number] 1/2 cap twice daily [facility] polyethylen e glycol (MIRALAX) 17 gram/dose powder 2018-03 00:00: 00 Yes [id number] 1/2 cap twice daily [facility] polyethylen e glycol (MIRALAX) 17 gram/dose powder 2018-03 00:00: 00 Yes [id number] 1/2 cap twice daily [facility] polyethylen e glycol (MIRALAX) 17 gram/dose powder 2018-03 00:00: 00 Yes [id number] 1/2 cap twice daily [facility] polyethylen e glycol (MIRALAX) 17 gram/dose powder 2018-03 00:00: 00 Yes [id number] 1/2 cap twice daily [facility] polyethylen e glycol (MIRALAX) 17 gram/dose powder 2018-03 00:00: 00 Yes [id number] 1/2 cap twice daily [facility] polyethylen e glycol (MIRALAX) 17 gram/dose powder 2018-03 00:00: 00 Yes [id number] 1/2 cap twice daily [facility] polyethylen e glycol (MIRALAX) 17 gram/dose powder 2018-03 00:00: 00 Yes [id number] 1/2 cap twice daily [facility] polyethylen e glycol (MIRALAX) 17 gram/dose powder 2018-03 00:00: 00 04-02 00:00 :00 No [id number] 1/2 cap twice daily [facility] polyethylen e glycol (MIRALAX) 17 gram/dose powder 2018-03 00:00: 00 04-02 00:00 :00 No [id number] 1/2 cap twice daily [facility] polyethylen e glycol (MIRALAX) 17 gram/dose powder 2018-03 00:00: 00 04-02 00:00 :00 No [id number] 1/2 cap twice daily [facility] polyethylen e glycol (MIRALAX) 17 gram/dose powder 2018-03 00:00: 00 04-02 00:00 :00 No [id number] 1/2 cap twice daily [facility] polyethylen e glycol (MIRALAX) 17 gram/dose powder 2018-03 00:00: 00 04-02 00:00 :00 No [id number] 1/2 cap twice daily [facility] polyethylen e glycol (MIRALAX) 17 gram/dose powder 2018-03 00:00: 00 04-02 00:00 :00 No [id number] 1/2 cap twice daily [facility] medroxyPROG ESTERone (DEPO-PROVE RA) injection 150 mg 11-11 15:00: 00 11-11 13:54 :00 No [id number] 150mg [facility] medroxyPROG ESTERone (DEPO-PROVE RA) injection 150 mg 11-11 15:00: 00 11-11 13:54 :00 No [id number] 150mg 150 mg, Intramuscu lar, ONCE, 1 dose, Gladys 11/11/18 at 1000, Routine [facility] medroxyPROG ESTERone (DEPO-PROVE RA) injection 150 mg 11-11 15:00: 00 11-11 13:54 :00 No [id number] 150mg [facility] medroxyPROG ESTERone (DEPO-PROVE RA) injection 150 mg 11-11 15:00: 00 11-11 13:54 :00 No [id number] 150mg 150 mg, Intramuscu lar, ONCE, 1 dose, Gladys 11/11/18 at 1000, Routine [facility] zonisamide 100 mg capsule 07-02 00:00: 00 Yes [id number] 200mg Take 2 capsules by mouth daily. [facility] zonisamide 100 mg capsule 07-02 00:00: 00 Yes [id number] 200mg Take 2 capsules by mouth daily. [facility] zonisamide 100 mg capsule 07-02 00:00: 00 Yes [id number] 200mg Take 2 capsules by mouth daily. [facility] zonisamide 100 mg capsule 07-02 00:00: 00 Yes [id number] 200mg Take 2 capsules by mouth daily. [facility] zonisamide 100 mg capsule 07-02 00:00: 00 Yes [id number] 200mg Take 2 capsules by mouth daily. [facility] zonisamide 100 mg capsule 07-02 00:00: 00 Yes [id number] 200mg Take 2 capsules by mouth daily. [facility] zonisamide 100 mg capsule 07-02 00:00: 00 Yes [id number] 200mg Take 2 capsules by mouth daily. [facility] zonisamide 100 mg capsule 07-02 00:00: 00 Yes [id number] 200mg Take 2 capsules by mouth daily. [facility] zonisamide 100 mg capsule 07-02 00:00: 00 Yes [id number] 200mg Take 2 capsules by mouth daily. [facility] zonisamide 100 mg capsule 07-02 00:00: 00 Yes [id number] 200mg Take 2 capsules by mouth daily. [facility] zonisamide 100 mg capsule 07-02 00:00: 00 Yes [id number] 200mg Take 2 capsules by mouth daily. [facility] zonisamide 100 mg capsule 07-02 00:00: 00 Yes [id number] 200mg Take 2 capsules by mouth daily. [facility] zonisamide 100 mg capsule 07-02 00:00: 00 Yes [id number] 200mg Take 2 capsules by mouth daily. [facility] zonisamide 100 mg capsule 07-02 00:00: 00 Yes [id number] 200mg Take 2 capsules by mouth daily. [facility] zonisamide 100 mg capsule 07-02 00:00: 00 Yes [id number] 200mg Take 2 capsules by mouth daily. [facility] zonisamide 100 mg capsule 07-02 00:00: 00 05-03 00:00 :00 No [id number] 200mg Take 2 capsules by mouth daily. [facility] zonisamide 100 mg capsule 07-02 00:00: 00 05-03 00:00 :00 No [id number] 200mg Take 2 capsules by mouth daily. [facility] medroxyPROG ESTERone (DEPO-PROVE RA) injection 150 mg 2017-03 0 15:45: 00 Yes 150mg [facility] medroxyPROG ESTERone (DEPO-PROVE RA) injection 150 mg 2017-03 0 15:45: 00 Yes 150mg [facility] medroxyPROG ESTERone (DEPO-PROVE RA) injection 150 mg 2017-03 0 15:45: 00 Yes 150mg [facility] medroxyPROG ESTERone (DEPO-PROVE RA) injection 150 mg 2017-03 024 15:45: 00 Yes 150mg [facility] medroxyPROG ESTERone (DEPO-PROVE RA) injection 150 mg 2017-03 0 15:45: 00 Yes 150mg [facility] medroxyPROG ESTERone (DEPO-PROVE RA) injection 150 mg 2017-03 024 15:45: 00 Yes 150mg [facility] medroxyPROG ESTERone (DEPO-PROVE RA) injection 150 mg 2017-03 024 15:45: 00 Yes 150mg [facility] [facility] medroxyPROG ESTERone (DEPO-PROVE RA) injection 150 mg 2017-03 15:45: 00 Yes 150mg [facility] medroxyPROG ESTERone (DEPO-PROVE RA) injection 150 mg 2017-03 024 15:45: 00 Yes 150mg [facility] medroxyPROG ESTERone (DEPO-PROVE RA) injection 150 mg 2017-03 15:45: 00 Yes 150mg [facility] medroxyPROG ESTERone (DEPO-PROVE RA) injection 150 mg 2017-03 15:45: 00 Yes 150mg [facility] medroxyPROG ESTERone (DEPO-PROVE RA) injection 150 mg 2017-03 15:45: 00 Yes 150mg [facility] medroxyPROG ESTERone (DEPO-PROVE RA) injection 150 mg 2017-03 15:45: 00 Yes 150mg [facility] medroxyPROG ESTERone (DEPO-PROVE RA) injection 150 mg 2017-03 15:45: 00 Yes 150mg [facility] medroxyPROG ESTERone (DEPO-PROVE RA) injection 150 mg 2017-03 15:45: 00 Yes 150mg [facility] medroxyPROG ESTERone (DEPO-PROVE RA) injection 150 mg 2017-03 15:45: 00 Yes 150mg [facility] medroxyPROG ESTERone (DEPO-PROVE RA) injection 150 mg 2017-03 15:45: 00 Yes 150mg [facility] medroxyPROG ESTERone (DEPO-PROVE RA) injection 150 mg 2017-03 15:45: 00 Yes 150mg [facility] medroxyPROG ESTERone (DEPO-PROVE RA) injection 150 mg 2017-03 15:45: 00 Yes 150mg [facility] medroxyPROG ESTERone (DEPO-PROVE RA) injection 150 mg 2017-03 0 15:45: 00 Yes 150mg [facility] medroxyPROG ESTERone (DEPO-PROVE RA) injection 150 mg 2017-03 0 15:45: 00 Yes 150mg [facility] medroxyPROG ESTERone (DEPO-PROVE RA) injection 150 mg 2017-03 0 15:45: 00 Yes 150mg [facility] medroxyPROG ESTERone (DEPO-PROVE RA) injection 150 mg 2017-03 0 15:45: 00 06-14 15:23 :36 No 150mg [facility] Immunizations Ordered Immunization Name Filled Immunization Name Date Status Comments Source SARS-COV-2 COVID-19 PFIZER VACCINE 2020-07-06 00:00:00 Completed [facility] SARS-COV-2 COVID-19 PFIZER VACCINE 2020-07-06 00:00:00 Completed [facility] SARS-COV-2 COVID-19 PFIZER VACCINE 2020-07-06 00:00:00 Completed [facility] SARS-COV-2 COVID-19 PFIZER VACCINE 2020-07-06 00:00:00 Completed [facility] SARS-COV-2 COVID-19 PFIZER VACCINE 2020-07-06 00:00:00 Completed [facility] SARS-COV-2 COVID-19 PFIZER VACCINE 2020-07-06 00:00:00 Completed [facility] SARS-COV-2 COVID-19 PFIZER VACCINE 2020-07-06 00:00:00 Completed [facility] SARS-COV-2 COVID-19 PFIZER VACCINE 2020-07-06 00:00:00 Completed [facility] SARS-COV-2 COVID-19 PFIZER VACCINE 2020-07-06 00:00:00 Completed [facility] SARS-COV-2 COVID-19 PFIZER VACCINE 2020-07-06 00:00:00 Completed [facility] SARS-COV-2 COVID-19 PFIZER VACCINE 2020-07-06 00:00:00 Completed [facility] SARS-COV-2 COVID-19 PFIZER VACCINE 2020-07-06 00:00:00 Completed [facility] SARS-COV-2 COVID-19 PFIZER VACCINE 2020-07-06 00:00:00 Completed [facility] SARS-COV-2 COVID-19 PFIZER VACCINE 2020-07-06 00:00:00 Completed [facility] SARS-COV-2 COVID-19 PFIZER VACCINE 2020-07-06 00:00:00 Completed [facility] SARS-COV-2 COVID-19 PFIZER VACCINE 2020-07-06 00:00:00 Completed [facility] SARS-COV-2 COVID-19 PFIZER VACCINE 2020-07-06 00:00:00 Completed [facility] SARS-COV-2 COVID-19 PFIZER VACCINE 2020-07-06 00:00:00 Completed [facility] SARS-COV-2 COVID-19 PFIZER VACCINE 2020-07-06 00:00:00 Completed [facility] SARS-COV-2 COVID-19 PFIZER VACCINE 2020-07-06 00:00:00 Completed [facility] SARS-COV-2 COVID-19 PFIZER VACCINE 2020-07-06 00:00:00 Completed [facility] SARS-COV-2 COVID-19 PFIZER VACCINE 2020-07-06 00:00:00 Completed [facility] SARS-COV-2 COVID-19 PFIZER VACCINE 2020-07-06 00:00:00 Completed [facility] SARS-COV-2 COVID-19 PFIZER VACCINE 2020-07-06 00:00:00 Completed [facility] SARS-COV-2 COVID-19 PFIZER VACCINE 2020-07-06 00:00:00 Completed [facility] SARS-COV-2 COVID-19 PFIZER VACCINE 2020-07-06 00:00:00 Completed [facility] SARS-COV-2 COVID-19 PFIZER VACCINE 2020-07-06 00:00:00 Completed [facility] SARS-COV-2 COVID-19 PFIZER VACCINE 2020-07-06 00:00:00 Completed [facility] SARS-COV-2 COVID-19 PFIZER VACCINE 2020-07-06 00:00:00 Completed [facility] SARS-COV-2 COVID-19 PFIZER VACCINE 2020-07-06 00:00:00 Completed [facility] SARS-COV-2 COVID-19 PFIZER VACCINE 2020-07-06 00:00:00 Completed [facility] SARS-COV-2 COVID-19 PFIZER VACCINE 2020-07-06 00:00:00 Completed [facility] SARS-COV-2 COVID-19 PFIZER VACCINE 2020-07-06 00:00:00 Completed [facility] SARS-COV-2 COVID-19 PFIZER VACCINE 2020-07-06 00:00:00 Completed [facility] SARS-COV-2 COVID-19 PFIZER VACCINE 2020-07-06 00:00:00 Completed [facility] SARS-COV-2 COVID-19 PFIZER VACCINE 2020-07-06 00:00:00 Completed [facility] SARS-COV-2 COVID-19 PFIZER VACCINE 2020-07-06 00:00:00 Completed [facility] SARS-COV-2 COVID-19 PFIZER VACCINE 2020-07-06 00:00:00 Completed [facility] SARS-COV-2 COVID-19 PFIZER VACCINE 2020-07-06 00:00:00 Completed [facility] SARS-COV-2 COVID-19 PFIZER VACCINE 2020-06-15 00:00:00 Completed [facility] SARS-COV-2 COVID-19 PFIZER VACCINE 2020-06-15 00:00:00 Completed [facility] SARS-COV-2 COVID-19 PFIZER VACCINE 2020-06-15 00:00:00 Completed [facility] SARS-COV-2 COVID-19 PFIZER VACCINE 2020-06-15 00:00:00 Completed [facility] SARS-COV-2 COVID-19 PFIZER VACCINE 2020-06-15 00:00:00 Completed [facility] SARS-COV-2 COVID-19 PFIZER VACCINE 2020-06-15 00:00:00 Completed [facility] SARS-COV-2 COVID-19 PFIZER VACCINE 2020-06-15 00:00:00 Completed [facility] SARS-COV-2 COVID-19 PFIZER VACCINE 2020-06-15 00:00:00 Completed [facility] SARS-COV-2 COVID-19 PFIZER VACCINE 2020-06-15 00:00:00 Completed [facility] SARS-COV-2 COVID-19 PFIZER VACCINE 2020-06-15 00:00:00 Completed [facility] SARS-COV-2 COVID-19 PFIZER VACCINE 2020-06-15 00:00:00 Completed [facility] SARS-COV-2 COVID-19 PFIZER VACCINE 2020-06-15 00:00:00 Completed [facility] SARS-COV-2 COVID-19 PFIZER VACCINE 2020-06-15 00:00:00 Completed [facility] SARS-COV-2 COVID-19 PFIZER VACCINE 2020-06-15 00:00:00 Completed [facility] SARS-COV-2 COVID-19 PFIZER VACCINE 2020-06-15 00:00:00 Completed [facility] SARS-COV-2 COVID-19 PFIZER VACCINE 2020-06-15 00:00:00 Completed [facility] SARS-COV-2 COVID-19 PFIZER VACCINE 2020-06-15 00:00:00 Completed [facility] SARS-COV-2 COVID-19 PFIZER VACCINE 2020-06-15 00:00:00 Completed [facility] SARS-COV-2 COVID-19 PFIZER VACCINE 2020-06-15 00:00:00 Completed [facility] SARS-COV-2 COVID-19 PFIZER VACCINE 2020-06-15 00:00:00 Completed [facility] SARS-COV-2 COVID-19 PFIZER VACCINE 2020-06-15 00:00:00 Completed [facility] SARS-COV-2 COVID-19 PFIZER VACCINE 2020-06-15 00:00:00 Completed [facility] SARS-COV-2 COVID-19 PFIZER VACCINE 2020-06-15 00:00:00 Completed [facility] SARS-COV-2 COVID-19 PFIZER VACCINE 2020-06-15 00:00:00 Completed [facility] SARS-COV-2 COVID-19 PFIZER VACCINE 2020-06-15 00:00:00 Completed [facility] SARS-COV-2 COVID-19 PFIZER VACCINE 2020-06-15 00:00:00 Completed [facility] SARS-COV-2 COVID-19 PFIZER VACCINE 2020-06-15 00:00:00 Completed [facility] SARS-COV-2 COVID-19 PFIZER VACCINE 2020-06-15 00:00:00 Completed [facility] SARS-COV-2 COVID-19 PFIZER VACCINE 2020-06-15 00:00:00 Completed [facility] SARS-COV-2 COVID-19 PFIZER VACCINE 2020-06-15 00:00:00 Completed [facility] SARS-COV-2 COVID-19 PFIZER VACCINE 2020-06-15 00:00:00 Completed [facility] SARS-COV-2 COVID-19 PFIZER VACCINE 2020-06-15 00:00:00 Completed [facility] SARS-COV-2 COVID-19 PFIZER VACCINE 2020-06-15 00:00:00 Completed [facility] SARS-COV-2 COVID-19 PFIZER VACCINE 2020-06-15 00:00:00 Completed [facility] SARS-COV-2 COVID-19 PFIZER VACCINE 2020-06-15 00:00:00 Completed [facility] SARS-COV-2 COVID-19 PFIZER VACCINE 2020-06-15 00:00:00 Completed [facility] SARS-COV-2 COVID-19 PFIZER VACCINE 2020-06-15 00:00:00 Completed [facility] SARS-COV-2 COVID-19 PFIZER VACCINE 2020-06-15 00:00:00 Completed [facility] SARS-COV-2 COVID-19 PFIZER VACCINE 2020-06-15 00:00:00 Completed [facility] Meningococcal B, OMV 2020-04-16 00:00:00 Completed [facility] Meningococcal B, OMV 2020-04-16 00:00:00 Completed [facility] Meningococcal B, OMV 2020-04-16 00:00:00 Completed [facility] Meningococcal B, OMV 2020-04-16 00:00:00 Completed [facility] Meningococcal B, OMV 2020-04-16 00:00:00 Completed [facility] Meningococcal B, OMV 2020-04-16 00:00:00 Completed [facility] Meningococcal B, OMV 2020-04-16 00:00:00 Completed [facility] Meningococcal B, OMV 2020-04-16 00:00:00 Completed [facility] Meningococcal B, OMV 2020-04-16 00:00:00 Completed [facility] Meningococcal B, OMV 2020-04-16 00:00:00 Completed [facility] Meningococcal B, OMV 2020-04-16 00:00:00 Completed [facility] Meningococcal B, OMV 2020-04-16 00:00:00 Completed [facility] Meningococcal B, OMV 2020-04-16 00:00:00 Completed [facility] Meningococcal B, OMV 2020-04-16 00:00:00 Completed [facility] Meningococcal B, OMV 2020-04-16 00:00:00 Completed [facility] Meningococcal B, OMV 2020-04-16 00:00:00 Completed [facility] Meningococcal B, OMV 2020-04-16 00:00:00 Completed [facility] Meningococcal B, OMV 2020-04-16 00:00:00 Completed [facility] Meningococcal B, OMV 2020-04-16 00:00:00 Completed [facility] Meningococcal B, OMV 2020-04-16 00:00:00 Completed [facility] Meningococcal B, OMV 2020-04-16 00:00:00 Completed [facility] Meningococcal B, OMV 2020-04-16 00:00:00 Completed [facility] Meningococcal B, OMV 2020-04-16 00:00:00 Completed [facility] Meningococcal B, OMV 2020-04-16 00:00:00 Completed [facility] Meningococcal B, OMV 2020-04-16 00:00:00 Completed [facility] Meningococcal B, OMV 2020-04-16 00:00:00 Completed [facility] Meningococcal B, OMV 2020-04-16 00:00:00 Completed [facility] Meningococcal B, OMV 2020-04-16 00:00:00 Completed [facility] Meningococcal B, OMV 2020-04-16 00:00:00 Completed [facility] Meningococcal B, OMV 2020-04-16 00:00:00 Completed [facility] Meningococcal B, OMV 2020-04-16 00:00:00 Completed [facility] Meningococcal B, OMV 2020-04-16 00:00:00 Completed [facility] Meningococcal B, OMV 2020-04-16 00:00:00 Completed [facility] Meningococcal B, OMV 2020-04-16 00:00:00 Completed [facility] Meningococcal B, OMV 2020-04-16 00:00:00 Completed [facility] Meningococcal B, OMV 2020-04-16 00:00:00 Completed [facility] Meningococcal B, OMV 2020-04-16 00:00:00 Completed [facility] Meningococcal B, OMV 2020-04-16 00:00:00 Completed [facility] Meningococcal B, OMV 2020-04-16 00:00:00 Completed [facility] Meningococcal B, OMV 2020-04-16 00:00:00 Completed [facility] Meningococcal B, OMV 2020-04-16 00:00:00 Completed [facility] Meningococcal B, OMV 2020-04-16 00:00:00 Completed [facility] Meningococcal B, OMV 2020-04-16 00:00:00 Completed [facility] Meningococcal Polysaccharide (groups A, C, Y and W-135) conjugate vaccine (MCV4P) 2018-10-07 00:00:00 Completed [facility] Meningococcal B, Recombinant 2018-10-07 00:00:00 Completed [facility] Meningococcal Polysaccharide (groups A, C, Y and W-135) conjugate vaccine (MCV4P) 2018-10-07 00:00:00 Completed [facility] Meningococcal B, Recombinant 2018-10-07 00:00:00 Completed [facility] Meningococcal Polysaccharide (groups A, C, Y and W-135) conjugate vaccine (MCV4P) 2018-10-07 00:00:00 Completed [facility] Meningococcal B, Recombinant 2018-10-07 00:00:00 Completed [facility] Meningococcal Polysaccharide (groups A, C, Y and W-135) conjugate vaccine (MCV4P) 2018-10-07 00:00:00 Completed [facility] Meningococcal B, Recombinant 2018-10-07 00:00:00 Completed [facility] Meningococcal Polysaccharide (groups A, C, Y and W-135) conjugate vaccine (MCV4P) 2018-10-07 00:00:00 Completed [facility] Meningococcal B, Recombinant 2018-10-07 00:00:00 Completed [facility] Meningococcal Polysaccharide (groups A, C, Y and W-135) conjugate vaccine (MCV4P) 2018-10-07 00:00:00 Completed [facility] Meningococcal B, Recombinant 2018-10-07 00:00:00 Completed [facility] Meningococcal Polysaccharide (groups A, C, Y and W-135) conjugate vaccine (MCV4P) 2018-10-07 00:00:00 Completed [facility] Meningococcal B, Recombinant 2018-10-07 00:00:00 Completed [facility] Meningococcal Polysaccharide (groups A, C, Y and W-135) conjugate vaccine (MCV4P) 2018-10-07 00:00:00 Completed [facility] Meningococcal B, Recombinant 2018-10-07 00:00:00 Completed [facility] Meningococcal Polysaccharide (groups A, C, Y and W-135) conjugate vaccine (MCV4P) 2018-10-07 00:00:00 Completed [facility] Meningococcal B, Recombinant 2018-10-07 00:00:00 Completed [facility] Meningococcal Polysaccharide (groups A, C, Y and W-135) conjugate vaccine (MCV4P) 2018-10-07 00:00:00 Completed [facility] Meningococcal B, Recombinant 2018-10-07 00:00:00 Completed [facility] Meningococcal Polysaccharide (groups A, C, Y and W-135) conjugate vaccine (MCV4P) 2018-10-07 00:00:00 Completed [facility] Meningococcal B, Recombinant 2018-10-07 00:00:00 Completed [facility] Meningococcal Polysaccharide (groups A, C, Y and W-135) conjugate vaccine (MCV4P) 2018-10-07 00:00:00 Completed [facility] Meningococcal B, Recombinant 2018-10-07 00:00:00 Completed [facility] Meningococcal Polysaccharide (groups A, C, Y and W-135) conjugate vaccine (MCV4P) 2018-10-07 00:00:00 Completed [facility] Meningococcal B, Recombinant 2018-10-07 00:00:00 Completed [facility] Meningococcal Polysaccharide (groups A, C, Y and W-135) conjugate vaccine (MCV4P) 2018-10-07 00:00:00 Completed [facility] Meningococcal B, Recombinant 2018-10-07 00:00:00 Completed [facility] Meningococcal Polysaccharide (groups A, C, Y and W-135) conjugate vaccine (MCV4P) 2018-10-07 00:00:00 Completed [facility] Meningococcal Polysaccharide (groups A, C, Y and W-135) conjugate vaccine (MCV4P) 2018-10-07 00:00:00 Completed [facility] Meningococcal B, Recombinant 2018-10-07 00:00:00 Completed [facility] Meningococcal B, Recombinant 2018-10-07 00:00:00 Completed [facility] Meningococcal Polysaccharide (groups A, C, Y and W-135) conjugate vaccine (MCV4P) 2018-10-07 00:00:00 Completed [facility] Meningococcal B, Recombinant 2018-10-07 00:00:00 Completed [facility] Meningococcal Polysaccharide (groups A, C, Y and W-135) conjugate vaccine (MCV4P) 2018-10-07 00:00:00 Completed [facility] Meningococcal B, Recombinant 2018-10-07 00:00:00 Completed [facility] Meningococcal Polysaccharide (groups A, C, Y and W-135) conjugate vaccine (MCV4P) 2018-10-07 00:00:00 Completed [facility] Meningococcal B, Recombinant 2018-10-07 00:00:00 Completed [facility] Meningococcal Polysaccharide (groups A, C, Y and W-135) conjugate vaccine (MCV4P) 2018-10-07 00:00:00 Completed [facility] Meningococcal B, Recombinant 2018-10-07 00:00:00 Completed [facility] Meningococcal Polysaccharide (groups A, C, Y and W-135) conjugate vaccine (MCV4P) 2018-10-07 00:00:00 Completed [facility] Meningococcal B, Recombinant 2018-10-07 00:00:00 Completed [facility] Meningococcal Polysaccharide (groups A, C, Y and W-135) conjugate vaccine (MCV4P) 2018-10-07 00:00:00 Completed [facility] Meningococcal B, Recombinant 2018-10-07 00:00:00 Completed [facility] Meningococcal Polysaccharide (groups A, C, Y and W-135) conjugate vaccine (MCV4P) 2018-10-07 00:00:00 Completed [facility] Meningococcal B, Recombinant 2018-10-07 00:00:00 Completed [facility] Meningococcal Polysaccharide (groups A, C, Y and W-135) conjugate vaccine (MCV4P) 2018-10-07 00:00:00 Completed [facility] Meningococcal B, Recombinant 2018-10-07 00:00:00 Completed [facility] Meningococcal Polysaccharide (groups A, C, Y and W-135) conjugate vaccine (MCV4P) 2018-10-07 00:00:00 Completed [facility] Meningococcal B, Recombinant 2018-10-07 00:00:00 Completed [facility] Meningococcal Polysaccharide (groups A, C, Y and W-135) conjugate vaccine (MCV4P) 2018-10-07 00:00:00 Completed [facility] Meningococcal B, Recombinant 2018-10-07 00:00:00 Completed [facility] Meningococcal Polysaccharide (groups A, C, Y and W-135) conjugate vaccine (MCV4P) 2018-10-07 00:00:00 Completed [facility] Meningococcal B, Recombinant 2018-10-07 00:00:00 Completed [facility] Meningococcal Polysaccharide (groups A, C, Y and W-135) conjugate vaccine (MCV4P) 2018-10-07 00:00:00 Completed [facility] Meningococcal B, Recombinant 2018-10-07 00:00:00 Completed [facility] Meningococcal Polysaccharide (groups A, C, Y and W-135) conjugate vaccine (MCV4P) 2018-10-07 00:00:00 Completed [facility] Meningococcal B, Recombinant 2018-10-07 00:00:00 Completed [facility] Meningococcal Polysaccharide (groups A, C, Y and W-135) conjugate vaccine (MCV4P) 2018-10-07 00:00:00 Completed [facility] Meningococcal B, Recombinant 2018-10-07 00:00:00 Completed [facility] Meningococcal Polysaccharide (groups A, C, Y and W-135) conjugate vaccine (MCV4P) 2018-10-07 00:00:00 Completed [facility] Meningococcal B, Recombinant 2018-10-07 00:00:00 Completed [facility] Meningococcal Polysaccharide (groups A, C, Y and W-135) conjugate vaccine (MCV4P) 2018-10-07 00:00:00 Completed [facility] Meningococcal B, Recombinant 2018-10-07 00:00:00 Completed [facility] Meningococcal Polysaccharide (groups A, C, Y and W-135) conjugate vaccine (MCV4P) 2018-10-07 00:00:00 Completed [facility] Meningococcal B, Recombinant 2018-10-07 00:00:00 Completed [facility] Meningococcal Polysaccharide (groups A, C, Y and W-135) conjugate vaccine (MCV4P) 2018-10-07 00:00:00 Completed [facility] Meningococcal B, Recombinant 2018-10-07 00:00:00 Completed [facility] Meningococcal Polysaccharide (groups A, C, Y and W-135) conjugate vaccine (MCV4P) 2018-10-07 00:00:00 Completed [facility] Meningococcal B, Recombinant 2018-10-07 00:00:00 Completed [facility] Meningococcal Polysaccharide (groups A, C, Y and W-135) conjugate vaccine (MCV4P) 2018-10-07 00:00:00 Completed [facility] Meningococcal B, Recombinant 2018-10-07 00:00:00 Completed [facility] Meningococcal Polysaccharide (groups A, C, Y and W-135) conjugate vaccine (MCV4P) 2018-10-07 00:00:00 Completed [facility] Meningococcal B, Recombinant 2018-10-07 00:00:00 Completed [facility] Meningococcal Polysaccharide (groups A, C, Y and W-135) conjugate vaccine (MCV4P) 2018-10-07 00:00:00 Completed [facility] Meningococcal B, Recombinant 2018-10-07 00:00:00 Completed [facility] Meningococcal Polysaccharide (groups A, C, Y and W-135) conjugate vaccine (MCV4P) 2018-10-07 00:00:00 Completed [facility] Meningococcal B, Recombinant 2018-10-07 00:00:00 Completed [facility] Meningococcal Polysaccharide (groups A, C, Y and W-135) conjugate vaccine (MCV4P) 2018-10-07 00:00:00 Completed [facility] Meningococcal B, Recombinant 2018-10-07 00:00:00 Completed [facility] Meningococcal Polysaccharide (groups A, C, Y and W-135) conjugate vaccine (MCV4P) 2018-10-07 00:00:00 Completed [facility] Meningococcal B, Recombinant 2018-10-07 00:00:00 Completed [facility] Meningococcal Polysaccharide (groups A, C, Y and W-135) conjugate vaccine (MCV4P) 2018-10-07 00:00:00 Completed [facility] Meningococcal B, Recombinant 2018-10-07 00:00:00 Completed [facility] Meningococcal Polysaccharide (groups A, C, Y and W-135) conjugate vaccine (MCV4P) 2018-10-07 00:00:00 Completed [facility] Meningococcal B, Recombinant 2018-10-07 00:00:00 Completed [facility] Meningococcal Polysaccharide (groups A, C, Y and W-135) conjugate vaccine (MCV4P) 2018-10-07 00:00:00 Completed [facility] Meningococcal B, Recombinant 2018-10-07 00:00:00 Completed [facility] Meningococcal Polysaccharide (groups A, C, Y and W-135) conjugate vaccine (MCV4P) 2018-10-07 00:00:00 Completed [facility] Meningococcal B, Recombinant 2018-10-07 00:00:00 Completed [facility] Meningococcal Polysaccharide (groups A, C, Y and W-135) conjugate vaccine (MCV4P) 2018-10-07 00:00:00 Completed [facility] Meningococcal B, Recombinant 2018-10-07 00:00:00 Completed [facility] Meningococcal Polysaccharide (groups A, C, Y and W-135) conjugate vaccine (MCV4P) 2018-10-07 00:00:00 Completed [facility] Meningococcal B, Recombinant 2018-10-07 00:00:00 Completed [facility] Meningococcal Polysaccharide (groups A, C, Y and W-135) conjugate vaccine (MCV4P) 2018-10-07 00:00:00 Completed [facility] Meningococcal B, Recombinant 2018-10-07 00:00:00 Completed [facility] Meningococcal Polysaccharide (groups A, C, Y and W-135) conjugate vaccine (MCV4P) 2018-10-07 00:00:00 Completed [facility] Meningococcal B, Recombinant 2018-10-07 00:00:00 Completed [facility] Meningococcal Polysaccharide (groups A, C, Y and W-135) conjugate vaccine (MCV4P) 2018-10-07 00:00:00 Completed [facility] Meningococcal B, Recombinant 2018-10-07 00:00:00 Completed [facility] Meningococcal Polysaccharide (groups A, C, Y and W-135) conjugate vaccine (MCV4P) 2018-10-07 00:00:00 Completed [facility] Meningococcal B, Recombinant 2018-10-07 00:00:00 Completed [facility] Meningococcal Polysaccharide (groups A, C, Y and W-135) conjugate vaccine (MCV4P) 2018-10-07 00:00:00 Completed [facility] Meningococcal B, Recombinant 2018-10-07 00:00:00 Completed [facility] Meningococcal Polysaccharide (groups A, C, Y and W-135) conjugate vaccine (MCV4P) 2018-10-07 00:00:00 Completed [facility] Meningococcal Polysaccharide (groups A, C, Y and W-135) conjugate vaccine (MCV4P) 2018-10-07 00:00:00 Completed [facility] Meningococcal B, Recombinant 2018-10-07 00:00:00 Completed [facility] Meningococcal B, Recombinant 2018-10-07 00:00:00 Completed [facility] Meningococcal Polysaccharide (groups A, C, Y and W-135) conjugate vaccine (MCV4P) 2018-10-07 00:00:00 Completed [facility] Meningococcal B, Recombinant 2018-10-07 00:00:00 Completed [facility] Meningococcal Polysaccharide (groups A, C, Y and W-135) conjugate vaccine (MCV4P) 2018-10-07 00:00:00 Completed [facility] Meningococcal B, Recombinant 2018-10-07 00:00:00 Completed [facility] Meningococcal Polysaccharide (groups A, C, Y and W-135) conjugate vaccine (MCV4P) 2018-10-07 00:00:00 Completed [facility] Meningococcal B, Recombinant 2018-10-07 00:00:00 Completed [facility] Meningococcal Polysaccharide (groups A, C, Y and W-135) conjugate vaccine (MCV4P) 2018-10-07 00:00:00 Completed [facility] Meningococcal B, Recombinant 2018-10-07 00:00:00 Completed [facility] Meningococcal Polysaccharide (groups A, C, Y and W-135) conjugate vaccine (MCV4P) 2018-10-07 00:00:00 Completed [facility] Meningococcal B, Recombinant 2018-10-07 00:00:00 Completed [facility] Meningococcal Polysaccharide (groups A, C, Y and W-135) conjugate vaccine (MCV4P) 2018-10-07 00:00:00 Completed [facility] Meningococcal B, Recombinant 2018-10-07 00:00:00 Completed [facility] Meningococcal Polysaccharide (groups A, C, Y and W-135) conjugate vaccine (MCV4P) 2018-10-07 00:00:00 Completed [facility] Meningococcal B, Recombinant 2018-10-07 00:00:00 Completed [facility] Meningococcal Polysaccharide (groups A, C, Y and W-135) conjugate vaccine (MCV4P) 2018-10-07 00:00:00 Completed [facility] Meningococcal B, Recombinant 2018-10-07 00:00:00 Completed [facility] Meningococcal Polysaccharide (groups A, C, Y and W-135) conjugate vaccine (MCV4P) 2018-10-07 00:00:00 Completed [facility] Meningococcal B, Recombinant 2018-10-07 00:00:00 Completed [facility] Meningococcal Polysaccharide (groups A, C, Y and W-135) conjugate vaccine (MCV4P) 2018-10-07 00:00:00 Completed [facility] Meningococcal B, Recombinant 2018-10-07 00:00:00 Completed [facility] Meningococcal Polysaccharide (groups A, C, Y and W-135) conjugate vaccine (MCV4P) 2018-10-07 00:00:00 Completed [facility] Meningococcal B, Recombinant 2018-10-07 00:00:00 Completed [facility] Meningococcal Polysaccharide (groups A, C, Y and W-135) conjugate vaccine (MCV4P) 2018-10-07 00:00:00 Completed [facility] Meningococcal B, Recombinant 2018-10-07 00:00:00 Completed [facility] Meningococcal Polysaccharide (groups A, C, Y and W-135) conjugate vaccine (MCV4P) 2018-10-07 00:00:00 Completed [facility] Meningococcal B, Recombinant 2018-10-07 00:00:00 Completed [facility] Meningococcal Polysaccharide (groups A, C, Y and W-135) conjugate vaccine (MCV4P) 2018-10-07 00:00:00 Completed [facility] Meningococcal B, Recombinant 2018-10-07 00:00:00 Completed [facility] Meningococcal Polysaccharide (groups A, C, Y and W-135) conjugate vaccine (MCV4P) 2018-10-07 00:00:00 Completed [facility] Meningococcal B, Recombinant 2018-10-07 00:00:00 Completed [facility] Meningococcal Polysaccharide (groups A, C, Y and W-135) conjugate vaccine (MCV4P) 2018-10-07 00:00:00 Completed [facility] Meningococcal B, Recombinant 2018-10-07 00:00:00 Completed [facility] Meningococcal Polysaccharide (groups A, C, Y and W-135) conjugate vaccine (MCV4P) 2018-10-07 00:00:00 Completed [facility] Meningococcal B, Recombinant 2018-10-07 00:00:00 Completed [facility] Meningococcal Polysaccharide (groups A, C, Y and W-135) conjugate vaccine (MCV4P) 2018-10-07 00:00:00 Completed [facility] Meningococcal B, Recombinant 2018-10-07 00:00:00 Completed [facility] Meningococcal Polysaccharide (groups A, C, Y and W-135) conjugate vaccine (MCV4P) 2018-10-07 00:00:00 Completed [facility] Meningococcal B, Recombinant 2018-10-07 00:00:00 Completed [facility] Meningococcal Polysaccharide (groups A, C, Y and W-135) conjugate vaccine (MCV4P) 2018-10-07 00:00:00 Completed [facility] Meningococcal B, Recombinant 2018-10-07 00:00:00 Completed [facility] Meningococcal Polysaccharide (groups A, C, Y and W-135) conjugate vaccine (MCV4P) 2018-10-07 00:00:00 Completed [facility] Meningococcal B, Recombinant 2018-10-07 00:00:00 Completed [facility] Meningococcal Polysaccharide (groups A, C, Y and W-135) conjugate vaccine (MCV4P) 2018-10-07 00:00:00 Completed [facility] Meningococcal B, Recombinant 2018-10-07 00:00:00 Completed [facility] Meningococcal Polysaccharide (groups A, C, Y and W-135) conjugate vaccine (MCV4P) 2018-10-07 00:00:00 Completed [facility] Meningococcal B, Recombinant 2018-10-07 00:00:00 Completed [facility] Meningococcal Polysaccharide (groups A, C, Y and W-135) conjugate vaccine (MCV4P) 2018-10-07 00:00:00 Completed [facility] Meningococcal B, Recombinant 2018-10-07 00:00:00 Completed [facility] Meningococcal Polysaccharide (groups A, C, Y and W-135) conjugate vaccine (MCV4P) 2018-10-07 00:00:00 Completed [facility] Meningococcal B, Recombinant 2018-10-07 00:00:00 Completed [facility] Meningococcal Polysaccharide (groups A, C, Y and W-135) conjugate vaccine (MCV4P) 2018-10-07 00:00:00 Completed [facility] Meningococcal B, Recombinant 2018-10-07 00:00:00 Completed [facility] Meningococcal Polysaccharide (groups A, C, Y and W-135) conjugate vaccine (MCV4P) 2018-10-07 00:00:00 Completed [facility] Meningococcal B, Recombinant 2018-10-07 00:00:00 Completed [facility] Meningococcal Polysaccharide (groups A, C, Y and W-135) conjugate vaccine (MCV4P) 2018-10-07 00:00:00 Completed [facility] Meningococcal B, Recombinant 2018-10-07 00:00:00 Completed [facility] Meningococcal Polysaccharide (groups A, C, Y and W-135) conjugate vaccine (MCV4P) 2018-10-07 00:00:00 Completed [facility] Meningococcal B, Recombinant 2018-10-07 00:00:00 Completed [facility] Meningococcal Polysaccharide (groups A, C, Y and W-135) conjugate vaccine (MCV4P) 2018-10-07 00:00:00 Completed [facility] Meningococcal B, Recombinant 2018-10-07 00:00:00 Completed [facility] Meningococcal Polysaccharide (groups A, C, Y and W-135) conjugate vaccine (MCV4P) 2018-10-07 00:00:00 Completed [facility] Meningococcal B, Recombinant 2018-10-07 00:00:00 Completed [facility] Meningococcal Polysaccharide (groups A, C, Y and W-135) conjugate vaccine (MCV4P) 2018-10-07 00:00:00 Completed [facility] Meningococcal B, Recombinant 2018-10-07 00:00:00 Completed [facility] Meningococcal Polysaccharide (groups A, C, Y and W-135) conjugate vaccine (MCV4P) 2018-10-07 00:00:00 Completed [facility] Meningococcal B, Recombinant 2018-10-07 00:00:00 Completed [facility] Meningococcal Polysaccharide (groups A, C, Y and W-135) conjugate vaccine (MCV4P) 2018-10-07 00:00:00 Completed [facility] Meningococcal B, Recombinant 2018-10-07 00:00:00 Completed [facility] Meningococcal Polysaccharide (groups A, C, Y and W-135) conjugate vaccine (MCV4P) 2018-10-07 00:00:00 Completed [facility] Meningococcal B, Recombinant 2018-10-07 00:00:00 Completed [facility] Meningococcal Polysaccharide (groups A, C, Y and W-135) conjugate vaccine (MCV4P) 2018-10-07 00:00:00 Completed [facility] Meningococcal B, Recombinant 2018-10-07 00:00:00 Completed [facility] Meningococcal Polysaccharide (groups A, C, Y and W-135) conjugate vaccine (MCV4P) 2018-10-07 00:00:00 Completed [facility] Meningococcal B, Recombinant 2018-10-07 00:00:00 Completed [facility] Meningococcal Polysaccharide (groups A, C, Y and W-135) conjugate vaccine (MCV4P) 2018-10-07 00:00:00 Completed [facility] Meningococcal B, Recombinant 2018-10-07 00:00:00 Completed [facility] Meningococcal Polysaccharide (groups A, C, Y and W-135) conjugate vaccine (MCV4P) 2018-10-07 00:00:00 Completed [facility] Meningococcal B, Recombinant 2018-10-07 00:00:00 Completed [facility] Meningococcal Polysaccharide (groups A, C, Y and W-135) conjugate vaccine (MCV4P) 2018-10-07 00:00:00 Completed [facility] Meningococcal B, Recombinant 2018-10-07 00:00:00 Completed [facility] Meningococcal Polysaccharide (groups A, C, Y and W-135) conjugate vaccine (MCV4P) 2018-10-07 00:00:00 Completed [facility] Meningococcal B, Recombinant 2018-10-07 00:00:00 Completed [facility] Meningococcal Polysaccharide (groups A, C, Y and W-135) conjugate vaccine (MCV4P) 2018-10-07 00:00:00 Completed [facility] Meningococcal B, Recombinant 2018-10-07 00:00:00 Completed [facility] Meningococcal Polysaccharide (groups A, C, Y and W-135) conjugate vaccine (MCV4P) 2018-10-07 00:00:00 Completed [facility] Meningococcal B, Recombinant 2018-10-07 00:00:00 Completed [facility] Meningococcal Polysaccharide (groups A, C, Y and W-135) conjugate vaccine (MCV4P) 2018-10-07 00:00:00 Completed [facility] Meningococcal B, Recombinant 2018-10-07 00:00:00 Completed [facility] Meningococcal Polysaccharide (groups A, C, Y and W-135) conjugate vaccine (MCV4P) 2018-10-07 00:00:00 Completed [facility] Meningococcal B, Recombinant 2018-10-07 00:00:00 Completed [facility] Meningococcal Polysaccharide (groups A, C, Y and W-135) conjugate vaccine (MCV4P) 2018-10-07 00:00:00 Completed [facility] Meningococcal B, Recombinant 2018-10-07 00:00:00 Completed [facility] Meningococcal Polysaccharide (groups A, C, Y and W-135) conjugate vaccine (MCV4P) 2018-10-07 00:00:00 Completed [facility] Meningococcal B, Recombinant 2018-10-07 00:00:00 Completed [facility] Meningococcal Polysaccharide (groups A, C, Y and W-135) conjugate vaccine (MCV4P) 2018-10-07 00:00:00 Completed [facility] Meningococcal B, Recombinant 2018-10-07 00:00:00 Completed [facility] Meningococcal Polysaccharide (groups A, C, Y and W-135) conjugate vaccine (MCV4P) 2018-10-07 00:00:00 Completed [facility] Meningococcal B, Recombinant 2018-10-07 00:00:00 Completed [facility] Influenza Virus Vaccine Quad .5 mL IM 6+ MO 2018-04-06 00:00:00 Completed [facility] Influenza Virus Vaccine Quad .5 mL IM 6+ MO 2018-04-06 00:00:00 Completed [facility] Influenza Virus Vaccine Quad .5 mL IM 6+ MO 2018-04-06 00:00:00 Completed [facility] Influenza Virus Vaccine Quad .5 mL IM 6+ MO 2018-04-06 00:00:00 Completed [facility] Influenza Virus Vaccine Quad .5 mL IM 6+ MO 2018-04-06 00:00:00 Completed [facility] Influenza Virus Vaccine Quad .5 mL IM 6+ MO 2018-04-06 00:00:00 Completed [facility] Influenza Virus Vaccine Quad .5 mL IM 6+ MO 2018-04-06 00:00:00 Completed [facility] Influenza Virus Vaccine Quad .5 mL IM 6+ MO 2018-04-06 00:00:00 Completed [facility] Influenza Virus Vaccine Quad .5 mL IM 6+ MO 2018-04-06 00:00:00 Completed [facility] Influenza Virus Vaccine Quad .5 mL IM 6+ MO 2018-04-06 00:00:00 Completed [facility] Influenza Virus Vaccine Quad .5 mL IM 6+ MO 2018-04-06 00:00:00 Completed [facility] Influenza Virus Vaccine Quad .5 mL IM 6+ MO 2018-04-06 00:00:00 Completed [facility] Influenza Virus Vaccine Quad .5 mL IM 6+ MO 2018-04-06 00:00:00 Completed [facility] Influenza Virus Vaccine Quad .5 mL IM 6+ MO 2018-04-06 00:00:00 Completed [facility] Influenza Virus Vaccine Quad .5 mL IM 6+ MO 2018-04-06 00:00:00 Completed [facility] Influenza Virus Vaccine Quad .5 mL IM 6+ MO 2018-04-06 00:00:00 Completed [facility] Influenza Virus Vaccine Quad .5 mL IM 6+ MO 2018-04-06 00:00:00 Completed [facility] Influenza Virus Vaccine Quad .5 mL IM 6+ MO 2018-04-06 00:00:00 Completed [facility] Influenza Virus Vaccine Quad .5 mL IM 6+ MO 2018-04-06 00:00:00 Completed [facility] Influenza Virus Vaccine Quad .5 mL IM 6+ MO 2018-04-06 00:00:00 Completed [facility] Influenza Virus Vaccine Quad .5 mL IM 6+ MO 2018-04-06 00:00:00 Completed [facility] Influenza Virus Vaccine Quad .5 mL IM 6+ MO 2018-04-06 00:00:00 Completed [facility] Influenza Virus Vaccine Quad .5 mL IM 6+ MO 2018-04-06 00:00:00 Completed [facility] Influenza Virus Vaccine Quad .5 mL IM 6+ MO 2018-04-06 00:00:00 Completed [facility] Influenza Virus Vaccine Quad .5 mL IM 6+ MO 2018-04-06 00:00:00 Completed [facility] Influenza Virus Vaccine Quad .5 mL IM 6+ MO 2018-04-06 00:00:00 Completed [facility] Influenza Virus Vaccine Quad .5 mL IM 6+ MO 2018-04-06 00:00:00 Completed [facility] Influenza Virus Vaccine Quad .5 mL IM 6+ MO 2018-04-06 00:00:00 Completed [facility] Influenza Virus Vaccine Quad .5 mL IM 6+ MO 2018-04-06 00:00:00 Completed [facility] Influenza Virus Vaccine Quad .5 mL IM 6+ MO 2018-04-06 00:00:00 Completed [facility] Influenza Virus Vaccine Quad .5 mL IM 6+ MO 2018-04-06 00:00:00 Completed [facility] Influenza Virus Vaccine Quad .5 mL IM 6+ MO 2018-04-06 00:00:00 Completed [facility] Influenza Virus Vaccine Quad .5 mL IM 6+ MO 2018-04-06 00:00:00 Completed [facility] Influenza Virus Vaccine Quad .5 mL IM 6+ MO 2018-04-06 00:00:00 Completed [facility] Influenza Virus Vaccine Quad .5 mL IM 6+ MO 2018-04-06 00:00:00 Completed [facility] Influenza Virus Vaccine Quad .5 mL IM 6+ MO 2018-04-06 00:00:00 Completed [facility] Influenza Virus Vaccine Quad .5 mL IM 6+ MO 2018-04-06 00:00:00 Completed [facility] Influenza Virus Vaccine Quad .5 mL IM 6+ MO 2018-04-06 00:00:00 Completed [facility] Influenza Virus Vaccine Quad .5 mL IM 6+ MO 2018-04-06 00:00:00 Completed [facility] Influenza Virus Vaccine Quad .5 mL IM 6+ MO 2018-04-06 00:00:00 Completed [facility] Influenza Virus Vaccine Quad .5 mL IM 6+ MO 2018-04-06 00:00:00 Completed [facility] Influenza Virus Vaccine Quad .5 mL IM 6+ MO 2018-04-06 00:00:00 Completed [facility] Influenza Virus Vaccine Quad .5 mL IM 6+ MO 2018-04-06 00:00:00 Completed [facility] Influenza Virus Vaccine Quad .5 mL IM 6+ MO 2018-04-06 00:00:00 Completed [facility] Influenza Virus Vaccine Quad .5 mL IM 6+ MO 2018-04-06 00:00:00 Completed [facility] Influenza Virus Vaccine Quad .5 mL IM 6+ MO 2018-04-06 00:00:00 Completed [facility] Influenza Virus Vaccine Quad .5 mL IM 6+ MO 2018-04-06 00:00:00 Completed [facility] Influenza Virus Vaccine Quad .5 mL IM 6+ MO 2018-04-06 00:00:00 Completed [facility] Influenza Virus Vaccine Quad .5 mL IM 6+ MO 2018-04-06 00:00:00 Completed [facility] Influenza Virus Vaccine Quad .5 mL IM 6+ MO 2018-04-06 00:00:00 Completed [facility] Influenza Virus Vaccine Quad .5 mL IM 6+ MO 2018-04-06 00:00:00 Completed [facility] Influenza Virus Vaccine Quad .5 mL IM 6+ MO 2018-04-06 00:00:00 Completed [facility] Influenza Virus Vaccine Quad .5 mL IM 6+ MO 2018-04-06 00:00:00 Completed [facility] Influenza Virus Vaccine Quad .5 mL IM 6+ MO 2018-04-06 00:00:00 Completed [facility] Influenza Virus Vaccine Quad .5 mL IM 6+ MO 2018-04-06 00:00:00 Completed [facility] Influenza Virus Vaccine Quad .5 mL IM 6+ MO 2018-04-06 00:00:00 Completed [facility] Influenza Virus Vaccine Quad .5 mL IM 6+ MO 2018-04-06 00:00:00 Completed [facility] Influenza Virus Vaccine Quad .5 mL IM 6+ MO 2018-04-06 00:00:00 Completed [facility] Influenza Virus Vaccine Quad .5 mL IM 6+ MO 2018-04-06 00:00:00 Completed [facility] Influenza Virus Vaccine Quad .5 mL IM 6+ MO 2018-04-06 00:00:00 Completed [facility] Influenza Virus Vaccine Quad .5 mL IM 6+ MO 2018-04-06 00:00:00 Completed [facility] Influenza Virus Vaccine Quad .5 mL IM 6+ MO 2018-04-06 00:00:00 Completed [facility] Influenza Virus Vaccine Quad .5 mL IM 6+ MO 2018-04-06 00:00:00 Completed [facility] Influenza Virus Vaccine Quad .5 mL IM 6+ MO 2018-04-06 00:00:00 Completed [facility] Influenza Virus Vaccine Quad .5 mL IM 6+ MO 2018-04-06 00:00:00 Completed [facility] Influenza Virus Vaccine Quad .5 mL IM 6+ MO 2018-04-06 00:00:00 Completed [facility] Influenza Virus Vaccine Quad .5 mL IM 6+ MO 2018-04-06 00:00:00 Completed [facility] Influenza Virus Vaccine Quad .5 mL IM 6+ MO 2018-04-06 00:00:00 Completed [facility] Influenza Virus Vaccine Quad .5 mL IM 6+ MO 2018-04-06 00:00:00 Completed [facility] Influenza Virus Vaccine Quad .5 mL IM 6+ MO 2018-04-06 00:00:00 Completed [facility] Influenza Virus Vaccine Quad .5 mL IM 6+ MO 2018-04-06 00:00:00 Completed [facility] Influenza Virus Vaccine Quad .5 mL IM 6+ MO 2018-04-06 00:00:00 Completed [facility] Influenza Virus Vaccine Quad .5 mL IM 6+ MO 2018-04-06 00:00:00 Completed [facility] Influenza Virus Vaccine Quad .5 mL IM 6+ MO 2018-04-06 00:00:00 Completed [facility] Influenza Virus Vaccine Quad .5 mL IM 6+ MO 2018-04-06 00:00:00 Completed [facility] Influenza Virus Vaccine Quad .5 mL IM 6+ MO 2018-04-06 00:00:00 Completed [facility] Influenza Virus Vaccine Quad .5 mL IM 6+ MO 2018-04-06 00:00:00 Completed [facility] Influenza Virus Vaccine Quad .5 mL IM 6+ MO 2018-04-06 00:00:00 Completed [facility] Influenza Virus Vaccine Quad .5 mL IM 6+ MO 2018-04-06 00:00:00 Completed [facility] Influenza Virus Vaccine Quad .5 mL IM 6+ MO 2018-04-06 00:00:00 Completed [facility] Influenza Virus Vaccine Quad .5 mL IM 6+ MO 2018-04-06 00:00:00 Completed [facility] Influenza Virus Vaccine Quad .5 mL IM 6+ MO 2018-04-06 00:00:00 Completed [facility] Influenza Virus Vaccine Quad .5 mL IM 6+ MO 2018-04-06 00:00:00 Completed [facility] Influenza Virus Vaccine Quad .5 mL IM 6+ MO 2018-04-06 00:00:00 Completed [facility] Influenza Virus Vaccine Quad .5 mL IM 6+ MO (FLUZONE/FLULAVAL/FL UARIX) 2018-04-06 00:00:00 Completed [facility] Influenza Virus Vaccine Quad .5 mL IM 6+ MO (FLUZONE/FLULAVAL/FL UARIX) 2018-04-06 00:00:00 Completed [facility] Influenza Virus Vaccine Quad .5 mL IM 6+ MO (FLUZONE/FLULAVAL/FL UARIX) 2018-04-06 00:00:00 Completed [facility] Influenza Virus Vaccine Quad .5 mL IM 6+ MO (FLUZONE/FLULAVAL/FL UARIX) 2018-04-06 00:00:00 Completed [facility] Influenza Virus Vaccine Quad .5 mL IM 6+ MO 2018-04-06 00:00:00 Completed [facility] Influenza Virus Vaccine Quad .5 mL IM 6+ MO 2018-04-06 00:00:00 Completed [facility] Influenza Virus Vaccine Quad .5 mL IM 6+ MO 2018-04-06 00:00:00 Completed [facility] Influenza Virus Vaccine Quad .5 mL IM 6+ MO 2018-04-06 00:00:00 Completed [facility] Influenza Virus Vaccine Quad .5 mL IM 6+ MO 2018-04-06 00:00:00 Completed [facility] Influenza Virus Vaccine Quad .5 mL IM 6+ MO 2018-04-06 00:00:00 Completed [facility] Influenza Virus Vaccine Quad .5 mL IM 6+ MO 2018-04-06 00:00:00 Completed [facility] Influenza Virus Vaccine Quad .5 mL IM 6+ MO 2018-04-06 00:00:00 Completed [facility] Influenza Virus Vaccine Quad .5 mL IM 6+ MO 2018-04-06 00:00:00 Completed [facility] Influenza Virus Vaccine Quad .5 mL IM 6+ MO 2018-04-06 00:00:00 Completed [facility] Influenza Virus Vaccine Quad .5 mL IM 6+ MO 2018-04-06 00:00:00 Completed [facility] Influenza Virus Vaccine Quad .5 mL IM 6+ MO 2018-04-06 00:00:00 Completed [facility] Influenza Virus Vaccine Quad .5 mL IM 6+ MO 2018-04-06 00:00:00 Completed [facility] Influenza Virus Vaccine Quad .5 mL IM 6+ MO 2018-04-06 00:00:00 Completed [facility] Influenza Virus Vaccine Quad .5 mL IM 6+ MO 2018-04-06 00:00:00 Completed [facility] Varicella (varivax)(chicken pox) 2013-05-05 00:00:00 Completed [facility] Varicella (varivax)(chicken pox) 2013-05-05 00:00:00 Completed [facility] Varicella (varivax)(chicken pox) 2013-05-05 00:00:00 Completed [facility] Varicella (varivax)(chicken pox) 2013-05-05 00:00:00 Completed [facility] Varicella (varivax)(chicken pox) 2013-05-05 00:00:00 Completed [facility] Varicella (varivax)(chicken pox) 2013-05-05 00:00:00 Completed [facility] Varicella (varivax)(chicken pox) 2013-05-05 00:00:00 Completed [facility] Varicella (varivax)(chicken pox) 2013-05-05 00:00:00 Completed [facility] Varicella (varivax)(chicken pox) 2013-05-05 00:00:00 Completed [facility] Varicella (varivax)(chicken pox) 2013-05-05 00:00:00 Completed [facility] Varicella (varivax)(chicken pox) 2013-05-05 00:00:00 Completed [facility] Varicella (varivax)(chicken pox) 2013-05-05 00:00:00 Completed [facility] Varicella (varivax)(chicken pox) 2013-05-05 00:00:00 Completed [facility] Varicella (varivax)(chicken pox) 2013-05-05 00:00:00 Completed [facility] Varicella (varivax)(chicken pox) 2013-05-05 00:00:00 Completed [facility] Varicella (varivax)(chicken pox) 2013-05-05 00:00:00 Completed [facility] Varicella (varivax)(chicken pox) 2013-05-05 00:00:00 Completed [facility] Varicella (varivax)(chicken pox) 2013-05-05 00:00:00 Completed [facility] Varicella (varivax)(chicken pox) 2013-05-05 00:00:00 Completed [facility] Varicella (varivax)(chicken pox) 2013-05-05 00:00:00 Completed [facility] Varicella (varivax)(chicken pox) 2013-05-05 00:00:00 Completed [facility] Varicella (varivax)(chicken pox) 2013-05-05 00:00:00 Completed [facility] Varicella (varivax)(chicken pox) 2013-05-05 00:00:00 Completed [facility] Varicella (varivax)(chicken pox) 2013-05-05 00:00:00 Completed [facility] Varicella (varivax)(chicken pox) 2013-05-05 00:00:00 Completed [facility] Varicella (varivax)(chicken pox) 2013-05-05 00:00:00 Completed [facility] Varicella (varivax)(chicken pox) 2013-05-05 00:00:00 Completed [facility] Varicella (varivax)(chicken pox) 2013-05-05 00:00:00 Completed [facility] Varicella (varivax)(chicken pox) 2013-05-05 00:00:00 Completed [facility] Varicella (varivax)(chicken pox) 2013-05-05 00:00:00 Completed [facility] Varicella (varivax)(chicken pox) 2013-05-05 00:00:00 Completed [facility] Varicella (varivax)(chicken pox) 2013-05-05 00:00:00 Completed [facility] Varicella (varivax)(chicken pox) 2013-05-05 00:00:00 Completed [facility] Varicella (varivax)(chicken pox) 2013-05-05 00:00:00 Completed [facility] Varicella (varivax)(chicken pox) 2013-05-05 00:00:00 Completed [facility] Varicella (varivax)(chicken pox) 2013-05-05 00:00:00 Completed [facility] Varicella (varivax)(chicken pox) 2013-05-05 00:00:00 Completed [facility] Varicella (varivax)(chicken pox) 2013-05-05 00:00:00 Completed [facility] Varicella (varivax)(chicken pox) 2013-05-05 00:00:00 Completed [facility] Varicella (varivax)(chicken pox) 2013-05-05 00:00:00 Completed [facility] Varicella (varivax)(chicken pox) 2013-05-05 00:00:00 Completed [facility] Varicella (varivax)(chicken pox) 2013-05-05 00:00:00 Completed [facility] Varicella (varivax)(chicken pox) 2013-05-05 00:00:00 Completed [facility] Varicella (varivax)(chicken pox) 2013-05-05 00:00:00 Completed [facility] Varicella (varivax)(chicken pox) 2013-05-05 00:00:00 Completed [facility] Varicella (varivax)(chicken pox) 2013-05-05 00:00:00 Completed [facility] Varicella (varivax)(chicken pox) 2013-05-05 00:00:00 Completed [facility] Varicella (varivax)(chicken pox) 2013-05-05 00:00:00 Completed [facility] Varicella (varivax)(chicken pox) 2013-05-05 00:00:00 Completed [facility] Varicella (varivax)(chicken pox) 2013-05-05 00:00:00 Completed [facility] Varicella (varivax)(chicken pox) 2013-05-05 00:00:00 Completed [facility] Varicella (varivax)(chicken pox) 2013-05-05 00:00:00 Completed [facility] Varicella (varivax)(chicken pox) 2013-05-05 00:00:00 Completed [facility] Varicella (varivax)(chicken pox) 2013-05-05 00:00:00 Completed [facility] Varicella (varivax)(chicken pox) 2013-05-05 00:00:00 Completed [facility] Varicella (varivax)(chicken pox) 2013-05-05 00:00:00 Completed [facility] Varicella (varivax)(chicken pox) 2013-05-05 00:00:00 Completed [facility] Varicella (varivax)(chicken pox) 2013-05-05 00:00:00 Completed [facility] Varicella (varivax)(chicken pox) 2013-05-05 00:00:00 Completed [facility] Varicella (varivax)(chicken pox) 2013-05-05 00:00:00 Completed [facility] Varicella (varivax)(chicken pox) 2013-05-05 00:00:00 Completed [facility] Varicella (varivax)(chicken pox) 2013-05-05 00:00:00 Completed [facility] Varicella (varivax)(chicken pox) 2013-05-05 00:00:00 Completed [facility] Varicella (varivax)(chicken pox) 2013-05-05 00:00:00 Completed [facility] Varicella (varivax)(chicken pox) 2013-05-05 00:00:00 Completed [facility] Varicella (varivax)(chicken pox) 2013-05-05 00:00:00 Completed [facility] Varicella (varivax)(chicken pox) 2013-05-05 00:00:00 Completed [facility] Varicella (varivax)(chicken pox) 2013-05-05 00:00:00 Completed [facility] Varicella (varivax)(chicken pox) 2013-05-05 00:00:00 Completed [facility] Varicella (varivax)(chicken pox) 2013-05-05 00:00:00 Completed [facility] Varicella (varivax)(chicken pox) 2013-05-05 00:00:00 Completed [facility] Varicella (varivax)(chicken pox) 2013-05-05 00:00:00 Completed [facility] Varicella (varivax)(chicken pox) 2013-05-05 00:00:00 Completed [facility] Varicella (varivax)(chicken pox) 2013-05-05 00:00:00 Completed [facility] Varicella (varivax)(chicken pox) 2013-05-05 00:00:00 Completed [facility] Varicella (varivax)(chicken pox) 2013-05-05 00:00:00 Completed [facility] Varicella (varivax)(chicken pox) 2013-05-05 00:00:00 Completed [facility] Varicella (varivax)(chicken pox) 2013-05-05 00:00:00 Completed [facility] Varicella (varivax)(chicken pox) 2013-05-05 00:00:00 Completed [facility] Varicella (varivax)(chicken pox) 2013-05-05 00:00:00 Completed [facility] Varicella (varivax)(chicken pox) 2013-05-05 00:00:00 Completed [facility] Varicella (varivax)(chicken pox) 2013-05-05 00:00:00 Completed [facility] Varicella (varivax)(chicken pox) 2013-05-05 00:00:00 Completed [facility] Varicella (varivax)(chicken pox) 2013-05-05 00:00:00 Completed [facility] Varicella (varivax)(chicken pox) 2013-05-05 00:00:00 Completed [facility] Varicella (varivax)(chicken pox) 2013-05-05 00:00:00 Completed [facility] Varicella (varivax)(chicken pox) 2013-05-05 00:00:00 Completed [facility] Varicella (varivax)(chicken pox) 2013-05-05 00:00:00 Completed [facility] Varicella (varivax)(chicken pox) 2013-05-05 00:00:00 Completed [facility] Varicella (varivax)(chicken pox) 2013-05-05 00:00:00 Completed [facility] Varicella (varivax)(chicken pox) 2013-05-05 00:00:00 Completed [facility] Varicella (varivax)(chicken pox) 2013-05-05 00:00:00 Completed [facility] Varicella (varivax)(chicken pox) 2013-05-05 00:00:00 Completed [facility] Varicella (varivax)(chicken pox) 2013-05-05 00:00:00 Completed [facility] Varicella (varivax)(chicken pox) 2013-05-05 00:00:00 Completed [facility] Varicella (varivax)(chicken pox) 2013-05-05 00:00:00 Completed [facility] Varicella (varivax)(chicken pox) 2013-05-05 00:00:00 Completed [facility] Varicella (varivax)(chicken pox) 2013-05-05 00:00:00 Completed [facility] Varicella (varivax)(chicken pox) 2013-05-05 00:00:00 Completed [facility] Varicella (varivax)(chicken pox) 2013-05-05 00:00:00 Completed [facility] Varicella (varivax)(chicken pox) 2013-05-05 00:00:00 Completed [facility] Varicella (varivax)(chicken pox) 2013-05-05 00:00:00 Completed [facility] Varicella (varivax)(chicken pox) 2013-05-05 00:00:00 Completed [facility] Meningococcal Polysaccharide (groups A, C, Y and W-135) conjugate vaccine (MCV4P) 2013-04-18 00:00:00 Completed [facility] Tdap 2013-04-18 00:00:00 Completed [facility] Meningococcal Polysaccharide (groups A, C, Y and W-135) conjugate vaccine (MCV4P) 2013-04-18 00:00:00 Completed [facility] Meningococcal Polysaccharide (groups A, C, Y and W-135) conjugate vaccine (MCV4P) 2013-04-18 00:00:00 Completed [facility] Tdap 2013-04-18 00:00:00 Completed [facility] Meningococcal Polysaccharide (groups A, C, Y and W-135) conjugate vaccine (MCV4P) 2013-04-18 00:00:00 Completed [facility] Tdap 2013-04-18 00:00:00 Completed [facility] Tdap 2013-04-18 00:00:00 Completed [facility] Meningococcal Polysaccharide (groups A, C, Y and W-135) conjugate vaccine (MCV4P) 2013-04-18 00:00:00 Completed [facility] Tdap 2013-04-18 00:00:00 Completed [facility] Meningococcal Polysaccharide (groups A, C, Y and W-135) conjugate vaccine (MCV4P) 2013-04-18 00:00:00 Completed [facility] Tdap 2013-04-18 00:00:00 Completed [facility] Meningococcal Polysaccharide (groups A, C, Y and W-135) conjugate vaccine (MCV4P) 2013-04-18 00:00:00 Completed [facility] Tdap 2013-04-18 00:00:00 Completed [facility] Meningococcal Polysaccharide (groups A, C, Y and W-135) conjugate vaccine (MCV4P) 2013-04-18 00:00:00 Completed [facility] Tdap 2013-04-18 00:00:00 Completed [facility] Meningococcal Polysaccharide (groups A, C, Y and W-135) conjugate vaccine (MCV4P) 2013-04-18 00:00:00 Completed [facility] Tdap 2013-04-18 00:00:00 Completed [facility] Meningococcal Polysaccharide (groups A, C, Y and W-135) conjugate vaccine (MCV4P) 2013-04-18 00:00:00 Completed [facility] TDAP 2013-04-18 00:00:00 Completed [facility] Meningococcal Polysaccharide (groups A, C, Y and W-135) conjugate vaccine (MCV4P) 2013-04-18 00:00:00 Completed [facility] TDAP 2013-04-18 00:00:00 Completed [facility] Meningococcal Polysaccharide (groups A, C, Y and W-135) conjugate vaccine (MCV4P) 2013-04-18 00:00:00 Completed [facility] Meningococcal Polysaccharide (groups A, C, Y and W-135) conjugate vaccine (MCV4P) 2013-04-18 00:00:00 Completed [facility] TDAP 2013-04-18 00:00:00 Completed [facility] Meningococcal Polysaccharide (groups A, C, Y and W-135) conjugate vaccine (MCV4P) 2013-04-18 00:00:00 Completed [facility] TDAP 2013-04-18 00:00:00 Completed [facility] Tdap 2013-04-18 00:00:00 Completed [facility] Meningococcal Polysaccharide (groups A, C, Y and W-135) conjugate vaccine (MCV4P) 2013-04-18 00:00:00 Completed [facility] TDAP 2013-04-18 00:00:00 Completed [facility] Meningococcal Polysaccharide (groups A, C, Y and W-135) conjugate vaccine (MCV4P) 2013-04-18 00:00:00 Completed [facility] TDAP 2013-04-18 00:00:00 Completed [facility] Meningococcal Polysaccharide (groups A, C, Y and W-135) conjugate vaccine (MCV4P) 2013-04-18 00:00:00 Completed [facility] TDAP 2013-04-18 00:00:00 Completed [facility] Meningococcal Polysaccharide (groups A, C, Y and W-135) conjugate vaccine (MCV4P) 2013-04-18 00:00:00 Completed [facility] TDAP 2013-04-18 00:00:00 Completed [facility] Meningococcal Polysaccharide (groups A, C, Y and W-135) conjugate vaccine (MCV4P) 2013-04-18 00:00:00 Completed [facility] TDAP 2013-04-18 00:00:00 Completed [facility] Meningococcal Polysaccharide (groups A, C, Y and W-135) conjugate vaccine (MCV4P) 2013-04-18 00:00:00 Completed [facility] TDAP 2013-04-18 00:00:00 Completed [facility] Meningococcal Polysaccharide (groups A, C, Y and W-135) conjugate vaccine (MCV4P) 2013-04-18 00:00:00 Completed [facility] TDAP 2013-04-18 00:00:00 Completed [facility] Meningococcal Polysaccharide (groups A, C, Y and W-135) conjugate vaccine (MCV4P) 2013-04-18 00:00:00 Completed [facility] TDAP 2013-04-18 00:00:00 Completed [facility] Meningococcal Polysaccharide (groups A, C, Y and W-135) conjugate vaccine (MCV4P) 2013-04-18 00:00:00 Completed [facility] TDAP 2013-04-18 00:00:00 Completed [facility] Meningococcal Polysaccharide (groups A, C, Y and W-135) conjugate vaccine (MCV4P) 2013-04-18 00:00:00 Completed [facility] Meningococcal Polysaccharide (groups A, C, Y and W-135) conjugate vaccine (MCV4P) 2013-04-18 00:00:00 Completed [facility] TDAP 2013-04-18 00:00:00 Completed [facility] Meningococcal Polysaccharide (groups A, C, Y and W-135) conjugate vaccine (MCV4P) 2013-04-18 00:00:00 Completed [facility] Tdap 2013-04-18 00:00:00 Completed [facility] TDAP 2013-04-18 00:00:00 Completed [facility] Meningococcal Polysaccharide (groups A, C, Y and W-135) conjugate vaccine (MCV4P) 2013-04-18 00:00:00 Completed [facility] TDAP 2013-04-18 00:00:00 Completed [facility] Meningococcal Polysaccharide (groups A, C, Y and W-135) conjugate vaccine (MCV4P) 2013-04-18 00:00:00 Completed [facility] TDAP 2013-04-18 00:00:00 Completed [facility] Meningococcal Polysaccharide (groups A, C, Y and W-135) conjugate vaccine (MCV4P) 2013-04-18 00:00:00 Completed [facility] TDAP 2013-04-18 00:00:00 Completed [facility] Meningococcal Polysaccharide (groups A, C, Y and W-135) conjugate vaccine (MCV4P) 2013-04-18 00:00:00 Completed [facility] TDAP 2013-04-18 00:00:00 Completed [facility] Meningococcal Polysaccharide (groups A, C, Y and W-135) conjugate vaccine (MCV4P) 2013-04-18 00:00:00 Completed [facility] TDAP 2013-04-18 00:00:00 Completed [facility] Meningococcal Polysaccharide (groups A, C, Y and W-135) conjugate vaccine (MCV4P) 2013-04-18 00:00:00 Completed [facility] TDAP 2013-04-18 00:00:00 Completed [facility] Meningococcal Polysaccharide (groups A, C, Y and W-135) conjugate vaccine (MCV4P) 2013-04-18 00:00:00 Completed [facility] Meningococcal Polysaccharide (groups A, C, Y and W-135) conjugate vaccine (MCV4P) 2013-04-18 00:00:00 Completed [facility] TDAP 2013-04-18 00:00:00 Completed [facility] Tdap 2013-04-18 00:00:00 Completed [facility] Meningococcal Polysaccharide (groups A, C, Y and W-135) conjugate vaccine (MCV4P) 2013-04-18 00:00:00 Completed [facility] TDAP 2013-04-18 00:00:00 Completed [facility] Meningococcal Polysaccharide (groups A, C, Y and W-135) conjugate vaccine (MCV4P) 2013-04-18 00:00:00 Completed [facility] TDAP 2013-04-18 00:00:00 Completed [facility] Meningococcal Polysaccharide (groups A, C, Y and W-135) conjugate vaccine (MCV4P) 2013-04-18 00:00:00 Completed [facility] TDAP 2013-04-18 00:00:00 Completed [facility] Meningococcal Polysaccharide (groups A, C, Y and W-135) conjugate vaccine (MCV4P) 2013-04-18 00:00:00 Completed [facility] TDAP 2013-04-18 00:00:00 Completed [facility] Meningococcal Polysaccharide (groups A, C, Y and W-135) conjugate vaccine (MCV4P) 2013-04-18 00:00:00 Completed [facility] TDAP 2013-04-18 00:00:00 Completed [facility] Meningococcal Polysaccharide (groups A, C, Y and W-135) conjugate vaccine (MCV4P) 2013-04-18 00:00:00 Completed [facility] TDAP 2013-04-18 00:00:00 Completed [facility] Meningococcal Polysaccharide (groups A, C, Y and W-135) conjugate vaccine (MCV4P) 2013-04-18 00:00:00 Completed [facility] TDAP 2013-04-18 00:00:00 Completed [facility] Meningococcal Polysaccharide (groups A, C, Y and W-135) conjugate vaccine (MCV4P) 2013-04-18 00:00:00 Completed [facility] TDAP 2013-04-18 00:00:00 Completed [facility] Meningococcal Polysaccharide (groups A, C, Y and W-135) conjugate vaccine (MCV4P) 2013-04-18 00:00:00 Completed [facility] Meningococcal Polysaccharide (groups A, C, Y and W-135) conjugate vaccine (MCV4P) 2013-04-18 00:00:00 Completed [facility] TDAP 2013-04-18 00:00:00 Completed [facility] Meningococcal Polysaccharide (groups A, C, Y and W-135) conjugate vaccine (MCV4P) 2013-04-18 00:00:00 Completed [facility] TDAP 2013-04-18 00:00:00 Completed [facility] Tdap 2013-04-18 00:00:00 Completed [facility] Meningococcal Polysaccharide (groups A, C, Y and W-135) conjugate vaccine (MCV4P) 2013-04-18 00:00:00 Completed [facility] TDAP 2013-04-18 00:00:00 Completed [facility] Meningococcal Polysaccharide (groups A, C, Y and W-135) conjugate vaccine (MCV4P) 2013-04-18 00:00:00 Completed [facility] TDAP 2013-04-18 00:00:00 Completed [facility] Meningococcal Polysaccharide (groups A, C, Y and W-135) conjugate vaccine (MCV4P) 2013-04-18 00:00:00 Completed [facility] TDAP 2013-04-18 00:00:00 Completed [facility] Meningococcal Polysaccharide (groups A, C, Y and W-135) conjugate vaccine (MCV4P) 2013-04-18 00:00:00 Completed [facility] TDAP 2013-04-18 00:00:00 Completed [facility] Meningococcal Polysaccharide (groups A, C, Y and W-135) conjugate vaccine (MCV4P) 2013-04-18 00:00:00 Completed [facility] Meningococcal Polysaccharide (groups A, C, Y and W-135) conjugate vaccine (MCV4P) 2013-04-18 00:00:00 Completed [facility] TDAP 2013-04-18 00:00:00 Completed [facility] Meningococcal Polysaccharide (groups A, C, Y and W-135) conjugate vaccine (MCV4P) 2013-04-18 00:00:00 Completed [facility] TDAP 2013-04-18 00:00:00 Completed [facility] Tdap 2013-04-18 00:00:00 Completed [facility] Meningococcal Polysaccharide (groups A, C, Y and W-135) conjugate vaccine (MCV4P) 2013-04-18 00:00:00 Completed [facility] TDAP 2013-04-18 00:00:00 Completed [facility] Meningococcal Polysaccharide (groups A, C, Y and W-135) conjugate vaccine (MCV4P) 2013-04-18 00:00:00 Completed [facility] TDAP 2013-04-18 00:00:00 Completed [facility] Meningococcal Polysaccharide (groups A, C, Y and W-135) conjugate vaccine (MCV4P) 2013-04-18 00:00:00 Completed [facility] TDAP 2013-04-18 00:00:00 Completed [facility] Meningococcal Polysaccharide (groups A, C, Y and W-135) conjugate vaccine (MCV4P) 2013-04-18 00:00:00 Completed [facility] TDAP 2013-04-18 00:00:00 Completed [facility] Meningococcal Polysaccharide (groups A, C, Y and W-135) conjugate vaccine (MCV4P) 2013-04-18 00:00:00 Completed [facility] TDAP 2013-04-18 00:00:00 Completed [facility] Meningococcal Polysaccharide (groups A, C, Y and W-135) conjugate vaccine (MCV4P) 2013-04-18 00:00:00 Completed [facility] TDAP 2013-04-18 00:00:00 Completed [facility] Meningococcal Polysaccharide (groups A, C, Y and W-135) conjugate vaccine (MCV4P) 2013-04-18 00:00:00 Completed [facility] Meningococcal Polysaccharide (groups A, C, Y and W-135) conjugate vaccine (MCV4P) 2013-04-18 00:00:00 Completed [facility] TDAP 2013-04-18 00:00:00 Completed [facility] Meningococcal Polysaccharide (groups A, C, Y and W-135) conjugate vaccine (MCV4P) 2013-04-18 00:00:00 Completed [facility] TDAP 2013-04-18 00:00:00 Completed [facility] Tdap 2013-04-18 00:00:00 Completed [facility] Meningococcal Polysaccharide (groups A, C, Y and W-135) conjugate vaccine (MCV4P) 2013-04-18 [facility] Meningococcal Polysaccharide (groups A, C, Y and W-135) conjugate vaccine (MCV4P) 2013-04-18 00:00:00 Completed [facility] TDAP 2013-04-18 00:00:00 Completed [facility] Meningococcal Polysaccharide (groups A, C, Y and W-135) conjugate vaccine (MCV4P) 2013-04-18 00:00:00 Completed [facility] TDAP 2013-04-18 00:00:00 Completed [facility] Meningococcal Polysaccharide (groups A, C, Y and W-135) conjugate vaccine (MCV4P) 2013-04-18 00:00:00 Completed [facility] TDAP 2013-04-18 00:00:00 Completed [facility] Meningococcal Polysaccharide (groups A, C, Y and W-135) conjugate vaccine (MCV4P) 2013-04-18 00:00:00 Completed [facility] TDAP 2013-04-18 00:00:00 Completed [facility] Meningococcal Polysaccharide (groups A, C, Y and W-135) conjugate vaccine (MCV4P) 2013-04-18 00:00:00 Completed [facility] TDAP 2013-04-18 00:00:00 Completed [facility] Meningococcal Polysaccharide (groups A, C, Y and W-135) conjugate vaccine (MCV4P) 2013-04-18 00:00:00 Completed [facility] TDAP 2013-04-18 00:00:00 Completed [facility] Meningococcal Polysaccharide (groups A, C, Y and W-135) conjugate vaccine (MCV4P) 2013-04-18 00:00:00 Completed [facility] Meningococcal Polysaccharide (groups A, C, Y and W-135) conjugate vaccine (MCV4P) 2013-04-18 00:00:00 Completed [facility] TDAP 2013-04-18 00:00:00 Completed [facility] Tdap 2013-04-18 00:00:00 Completed [facility] Meningococcal Polysaccharide (groups A, C, Y and W-135) conjugate vaccine (MCV4P) 2013-04-18 00:00:00 Completed [facility] TDAP 2013-04-18 00:00:00 Completed [facility] Meningococcal Polysaccharide (groups A, C, Y and W-135) conjugate vaccine (MCV4P) 2013-04-18 00:00:00 Completed [facility] TDAP 2013-04-18 00:00:00 Completed [facility] Meningococcal Polysaccharide (groups A, C, Y and W-135) conjugate vaccine (MCV4P) 2013-04-18 00:00:00 Completed [facility] TDAP 2013-04-18 00:00:00 Completed [facility] Meningococcal Polysaccharide (groups A, C, Y and W-135) conjugate vaccine (MCV4P) 2013-04-18 00:00:00 Completed [facility] TDAP 2013-04-18 00:00:00 Completed [facility] Meningococcal Polysaccharide (groups A, C, Y and W-135) conjugate vaccine (MCV4P) 2013-04-18 00:00:00 Completed [facility] TDAP 2013-04-18 00:00:00 Completed [facility] Meningococcal Polysaccharide (groups A, C, Y and W-135) conjugate vaccine (MCV4P) 2013-04-18 00:00:00 Completed [facility] TDAP 2013-04-18 00:00:00 Completed [facility] Meningococcal Polysaccharide (groups A, C, Y and W-135) conjugate vaccine (MCV4P) 2013-04-18 00:00:00 Completed [facility] TDAP 2013-04-18 00:00:00 Completed [facility] Meningococcal Polysaccharide (groups A, C, Y and W-135) conjugate vaccine (MCV4P) 2013-04-18 00:00:00 Completed [facility] Meningococcal Polysaccharide (groups A, C, Y and W-135) conjugate vaccine (MCV4P) 2013-04-18 00:00:00 Completed [facility] TDAP 2013-04-18 00:00:00 Completed [facility] Tdap 2013-04-18 00:00:00 Completed [facility] Meningococcal Polysaccharide (groups A, C, Y and W-135) conjugate vaccine (MCV4P) 2013-04-18 00:00:00 Completed [facility] TDAP 2013-04-18 00:00:00 Completed [facility] Meningococcal Polysaccharide (groups A, C, Y and W-135) conjugate vaccine (MCV4P) 2013-04-18 00:00:00 Completed [facility] TDAP 2013-04-18 00:00:00 Completed [facility] Meningococcal Polysaccharide (groups A, C, Y and W-135) conjugate vaccine (MCV4P) 2013-04-18 00:00:00 Completed [facility] TDAP 2013-04-18 00:00:00 Completed [facility] Meningococcal Polysaccharide (groups A, C, Y and W-135) conjugate vaccine (MCV4P) 2013-04-18 00:00:00 Completed [facility] TDAP 2013-04-18 00:00:00 Completed [facility] Meningococcal Polysaccharide (groups A, C, Y and W-135) conjugate vaccine (MCV4P) 2013-04-18 00:00:00 Completed [facility] TDAP 2013-04-18 00:00:00 Completed [facility] Meningococcal Polysaccharide (groups A, C, Y and W-135) conjugate vaccine (MCV4P) 2013-04-18 00:00:00 Completed [facility] TDAP 2013-04-18 00:00:00 Completed [facility] Meningococcal Polysaccharide (groups A, C, Y and W-135) conjugate vaccine (MCV4P) 2013-04-18 00:00:00 Completed [facility] TDAP 2013-04-18 00:00:00 Completed [facility] Meningococcal Polysaccharide (groups A, C, Y and W-135) conjugate vaccine (MCV4P) 2013-04-18 00:00:00 Completed [facility] Meningococcal Polysaccharide (groups A, C, Y and W-135) conjugate vaccine (MCV4P) 2013-04-18 00:00:00 Completed [facility] TDAP 2013-04-18 00:00:00 Completed [facility] Meningococcal Polysaccharide (groups A, C, Y and W-135) conjugate vaccine (MCV4P) 2013-04-18 00:00:00 Completed [facility] TDAP 2013-04-18 00:00:00 Completed [facility] Tdap 2013-04-18 00:00:00 Completed [facility] Meningococcal Polysaccharide (groups A, C, Y and W-135) conjugate vaccine (MCV4P) 2013-04-18 00:00:00 Completed [facility] Tdap 2013-04-18 00:00:00 Completed [facility] Meningococcal Polysaccharide (groups A, C, Y and W-135) conjugate vaccine (MCV4P) 2013-04-18 00:00:00 Completed [facility] Tdap 2013-04-18 00:00:00 Completed [facility] Meningococcal Polysaccharide (groups A, C, Y and W-135) conjugate vaccine (MCV4P) 2013-04-18 00:00:00 Completed [facility] Tdap 2013-04-18 00:00:00 Completed [facility] Meningococcal Polysaccharide (groups A, C, Y and W-135) conjugate vaccine (MCV4P) 2013-04-18 00:00:00 Completed [facility] Meningococcal Polysaccharide (groups A, C, Y and W-135) conjugate vaccine (MCV4P) 2013-04-18 00:00:00 Completed [facility] Tdap 2013-04-18 00:00:00 Completed [facility] Tdap 2013-04-18 00:00:00 Completed [facility] Meningococcal Polysaccharide (groups A, C, Y and W-135) conjugate vaccine (MCV4P) 2013-04-18 00:00:00 Completed [facility] Tdap 2013-04-18 00:00:00 Completed [facility] Meningococcal Polysaccharide (groups A, C, Y and W-135) conjugate vaccine (MCV4P) 2013-04-18 00:00:00 Completed [facility] Tdap 2013-04-18 00:00:00 Completed [facility] Meningococcal Polysaccharide (groups A, C, Y and W-135) conjugate vaccine (MCV4P) 2013-04-18 00:00:00 Completed [facility] Tdap 2013-04-18 00:00:00 Completed [facility] Meningococcal Polysaccharide (groups A, C, Y and W-135) conjugate vaccine (MCV4P) 2013-04-18 00:00:00 Completed [facility] Tdap 2013-04-18 00:00:00 Completed [facility] Meningococcal Polysaccharide (groups A, C, Y and W-135) conjugate vaccine (MCV4P) 2013-04-18 00:00:00 Completed [facility] Tdap 2013-04-18 00:00:00 Completed [facility] Meningococcal Polysaccharide (groups A, C, Y and W-135) conjugate vaccine (MCV4P) 2013-04-18 00:00:00 Completed [facility] Tdap 2013-04-18 00:00:00 Completed [facility] Meningococcal Polysaccharide (groups A, C, Y and W-135) conjugate vaccine (MCV4P) 2013-04-18 00:00:00 Completed [facility] Tdap 2013-04-18 00:00:00 Completed [facility] Meningococcal Polysaccharide (groups A, C, Y and W-135) conjugate vaccine (MCV4P) 2013-04-18 00:00:00 Completed [facility] Tdap 2013-04-18 00:00:00 Completed [facility] Meningococcal Polysaccharide (groups A, C, Y and W-135) conjugate vaccine (MCV4P) 2013-04-18 00:00:00 Completed [facility] Tdap 2013-04-18 00:00:00 Completed [facility] HPV 2012-11-29 00:00:00 Completed [facility] HPV 2012-11-29 00:00:00 Completed [facility] HPV 2012-11-29 00:00:00 Completed [facility] HPV 2012-11-29 00:00:00 Completed [facility] HPV 2012-11-29 00:00:00 Completed [facility] HPV 2012-11-29 00:00:00 Completed [facility] HPV 2012-11-29 00:00:00 Completed [facility] HPV 2012-11-29 00:00:00 Completed [facility] HPV 2012-11-29 00:00:00 Completed [facility] HPV 2012-11-29 00:00:00 Completed [facility] HPV 2012-11-29 00:00:00 Completed [facility] HPV 2012-11-29 00:00:00 Completed [facility] HPV 2012-11-29 00:00:00 Completed [facility] HPV 2012-11-29 00:00:00 Completed [facility] HPV 2012-11-29 00:00:00 Completed [facility] HPV 2012-11-29 00:00:00 Completed [facility] HPV 2012-11-29 00:00:00 Completed [facility] HPV 2012-11-29 00:00:00 Completed [facility] HPV 2012-11-29 00:00:00 Completed [facility] HPV 2012-11-29 00:00:00 Completed [facility] HPV 2012-11-29 00:00:00 Completed [facility] HPV 2012-11-29 00:00:00 Completed [facility] HPV 2012-11-29 00:00:00 Completed [facility] HPV 2012-11-29 00:00:00 Completed [facility] HPV 2012-11-29 00:00:00 Completed [facility] HPV 2012-11-29 00:00:00 Completed [facility] HPV 2012-11-29 00:00:00 Completed [facility] HPV 2012-11-29 00:00:00 Completed [facility] HPV 2012-11-29 00:00:00 Completed [facility] HPV 2012-11-29 00:00:00 Completed [facility] HPV 2012-11-29 00:00:00 Completed [facility] HPV 2012-11-29 00:00:00 Completed [facility] HPV 2012-11-29 00:00:00 Completed [facility] HPV 2012-11-29 00:00:00 Completed [facility] HPV 2012-11-29 00:00:00 Completed [facility] HPV 2012-11-29 00:00:00 Completed [facility] HPV 2012-11-29 00:00:00 Completed [facility] HPV 2012-11-29 00:00:00 Completed [facility] HPV 2012-11-29 00:00:00 Completed [facility] HPV 2012-11-29 00:00:00 Completed [facility] HPV 2012-11-29 00:00:00 Completed [facility] HPV 2012-11-29 00:00:00 Completed [facility] HPV 2012-11-29 00:00:00 Completed [facility] HPV 2012-11-29 00:00:00 Completed [facility] HPV 2012-11-29 00:00:00 Completed [facility] HPV 2012-11-29 00:00:00 Completed [facility] HPV 2012-11-29 00:00:00 Completed [facility] HPV 2012-11-29 00:00:00 Completed [facility] HPV 2012-11-29 00:00:00 Completed [facility] HPV 2012-11-29 00:00:00 Completed [facility] HPV 2012-11-29 00:00:00 Completed [facility] HPV 2012-11-29 00:00:00 Completed [facility] HPV 2012-11-29 00:00:00 Completed [facility] HPV 2012-11-29 00:00:00 Completed [facility] HPV 2012-11-29 00:00:00 Completed [facility] HPV 2012-11-29 00:00:00 Completed [facility] HPV 2012-11-29 00:00:00 Completed [facility] HPV 2012-11-29 00:00:00 Completed [facility] HPV 2012-11-29 00:00:00 Completed [facility] HPV 2012-11-29 00:00:00 Completed [facility] HPV 2012-11-29 00:00:00 Completed [facility] HPV 2012-11-29 00:00:00 Completed [facility] HPV 2012-11-29 00:00:00 Completed [facility] HPV 2012-11-29 00:00:00 Completed [facility] HPV 2012-11-29 00:00:00 Completed [facility] HPV 2012-11-29 00:00:00 Completed [facility] HPV 2012-11-29 00:00:00 Completed [facility] HPV 2012-11-29 00:00:00 Completed [facility] HPV 2012-11-29 00:00:00 Completed [facility] HPV 2012-11-29 00:00:00 Completed [facility] HPV 2012-11-29 00:00:00 Completed [facility] HPV 2012-11-29 00:00:00 Completed [facility] HPV 2012-11-29 00:00:00 Completed [facility] HPV 2012-11-29 00:00:00 Completed [facility] HPV 2012-11-29 00:00:00 Completed [facility] HPV 2012-11-29 00:00:00 Completed [facility] HPV 2012-11-29 00:00:00 Completed [facility] HPV 2012-11-29 00:00:00 Completed [facility] HPV 2012-11-29 00:00:00 Completed [facility] HPV 2012-11-29 00:00:00 Completed [facility] HPV 2012-11-29 00:00:00 Completed [facility] HPV 2012-11-29 00:00:00 Completed [facility] HPV 2012-11-29 00:00:00 Completed [facility] HPV 2012-11-29 00:00:00 Completed [facility] HPV 2012-11-29 00:00:00 Completed [facility] HPV 2012-11-29 00:00:00 Completed [facility] HPV 2012-11-29 00:00:00 Completed [facility] HPV 2012-11-29 00:00:00 Completed [facility] HPV 2012-11-29 00:00:00 Completed [facility] HPV 2012-11-29 00:00:00 Completed [facility] HPV 2012-11-29 00:00:00 Completed [facility] HPV 2012-11-29 00:00:00 Completed [facility] HPV 2012-11-29 00:00:00 Completed [facility] HPV 2012-11-29 00:00:00 Completed [facility] HPV 2012-11-29 00:00:00 Completed [facility] HPV 2012-11-29 00:00:00 Completed [facility] HPV 2012-11-29 00:00:00 Completed [facility] HPV 2012-11-29 00:00:00 Completed [facility] HPV 2012-11-29 00:00:00 Completed [facility] HPV 2012-11-29 00:00:00 Completed [facility] HPV 2012-11-29 00:00:00 Completed [facility] HPV 2012-11-29 00:00:00 Completed [facility] HPV 2012-11-29 00:00:00 Completed [facility] HPV 2012-07-09 00:00:00 Completed [facility] HPV 2012-07-09 00:00:00 Completed [facility] HPV 2012-07-09 00:00:00 Completed [facility] HPV 2012-07-09 00:00:00 Completed [facility] HPV 2012-07-09 00:00:00 Completed [facility] HPV 2012-07-09 00:00:00 Completed [facility] HPV 2012-07-09 00:00:00 Completed [facility] HPV 2012-07-09 00:00:00 Completed [facility] HPV 2012-07-09 00:00:00 Completed [facility] HPV 2012-07-09 00:00:00 Completed [facility] HPV 2012-07-09 00:00:00 Completed [facility] HPV 2012-07-09 00:00:00 Completed [facility] HPV 2012-07-09 00:00:00 Completed [facility] HPV 2012-07-09 00:00:00 Completed [facility] HPV 2012-07-09 00:00:00 Completed [facility] HPV 2012-07-09 00:00:00 Completed [facility] HPV 2012-07-09 00:00:00 Completed [facility] HPV 2012-07-09 00:00:00 Completed [facility] HPV 2012-07-09 00:00:00 Completed [facility] HPV 2012-07-09 00:00:00 Completed [facility] HPV 2012-07-09 00:00:00 Completed [facility] HPV 2012-07-09 00:00:00 Completed [facility] HPV 2012-07-09 00:00:00 Completed [facility] HPV 2012-07-09 00:00:00 Completed [facility] HPV 2012-07-09 00:00:00 Completed [facility] HPV 2012-07-09 00:00:00 Completed [facility] HPV 2012-07-09 00:00:00 Completed [facility] HPV 2012-07-09 00:00:00 Completed [facility] HPV 2012-07-09 00:00:00 Completed [facility] HPV 2012-07-09 00:00:00 Completed [facility] HPV 2012-07-09 00:00:00 Completed [facility] HPV 2012-07-09 00:00:00 Completed [facility] HPV 2012-07-09 00:00:00 Completed [facility] HPV 2012-07-09 00:00:00 Completed [facility] HPV 2012-07-09 00:00:00 Completed [facility] HPV 2012-07-09 00:00:00 Completed [facility] HPV 2012-07-09 00:00:00 Completed [facility] HPV 2012-07-09 00:00:00 Completed [facility] HPV 2012-07-09 00:00:00 Completed [facility] HPV 2012-07-09 00:00:00 Completed [facility] HPV 2012-07-09 00:00:00 Completed [facility] HPV 2012-07-09 00:00:00 Completed [facility] HPV 2012-07-09 00:00:00 Completed [facility] HPV 2012-07-09 00:00:00 Completed [facility] HPV 2012-07-09 00:00:00 Completed [facility] HPV 2012-07-09 00:00:00 Completed [facility] HPV 2012-07-09 00:00:00 Completed [facility] HPV 2012-07-09 00:00:00 Completed [facility] HPV 2012-07-09 00:00:00 Completed [facility] HPV 2012-07-09 00:00:00 Completed [facility] HPV 2012-07-09 00:00:00 Completed [facility] HPV 2012-07-09 00:00:00 Completed [facility] HPV 2012-07-09 00:00:00 Completed [facility] HPV 2012-07-09 00:00:00 Completed [facility] HPV 2012-07-09 00:00:00 Completed [facility] HPV 2012-07-09 00:00:00 Completed [facility] HPV 2012-07-09 00:00:00 Completed [facility] HPV 2012-07-09 00:00:00 Completed [facility] HPV 2012-07-09 00:00:00 Completed [facility] HPV 2012-07-09 00:00:00 Completed [facility] HPV 2012-07-09 00:00:00 Completed [facility] HPV 2012-07-09 00:00:00 Completed [facility] HPV 2012-07-09 00:00:00 Completed [facility] HPV 2012-07-09 00:00:00 Completed [facility] HPV 2012-07-09 00:00:00 Completed [facility] HPV 2012-07-09 00:00:00 Completed [facility] HPV 2012-07-09 00:00:00 Completed [facility] HPV 2012-07-09 00:00:00 Completed [facility] HPV 2012-07-09 00:00:00 Completed [facility] HPV 2012-07-09 00:00:00 Completed [facility] HPV 2012-07-09 00:00:00 Completed [facility] HPV 2012-07-09 00:00:00 Completed [facility] HPV 2012-07-09 00:00:00 Completed [facility] HPV 2012-07-09 00:00:00 Completed [facility] HPV 2012-07-09 00:00:00 Completed [facility] HPV 2012-07-09 00:00:00 Completed [facility] HPV 2012-07-09 00:00:00 Completed [facility] HPV 2012-07-09 00:00:00 Completed [facility] HPV 2012-07-09 00:00:00 Completed [facility] HPV 2012-07-09 00:00:00 Completed [facility] HPV 2012-07-09 00:00:00 Completed [facility] HPV 2012-07-09 00:00:00 Completed [facility] HPV 2012-07-09 00:00:00 Completed [facility] HPV 2012-07-09 00:00:00 Completed [facility] HPV 2012-07-09 00:00:00 Completed [facility] HPV 2012-07-09 00:00:00 Completed [facility] HPV 2012-07-09 00:00:00 Completed [facility] HPV 2012-07-09 00:00:00 Completed [facility] HPV 2012-07-09 00:00:00 Completed [facility] HPV 2012-07-09 00:00:00 Completed [facility] HPV 2012-07-09 00:00:00 Completed [facility] HPV 2012-07-09 00:00:00 Completed [facility] HPV 2012-07-09 00:00:00 Completed [facility] HPV 2012-07-09 00:00:00 Completed [facility] HPV 2012-07-09 00:00:00 Completed [facility] HPV 2012-07-09 00:00:00 Completed [facility] HPV 2012-07-09 00:00:00 Completed [facility] HPV 2012-07-09 00:00:00 Completed [facility] HPV 2012-07-09 00:00:00 Completed [facility] HPV 2012-07-09 00:00:00 Completed [facility] HPV 2012-07-09 00:00:00 Completed [facility] HPV 2012-07-09 00:00:00 Completed [facility] HPV 2012-07-09 00:00:00 Completed [facility] HPV 2011-04-07 00:00:00 Completed [facility] HPV 2011-04-07 00:00:00 Completed [facility] HPV 2011-04-07 00:00:00 Completed [facility] HPV 2011-04-07 00:00:00 Completed [facility] HPV 2011-04-07 00:00:00 Completed [facility] HPV 2011-04-07 00:00:00 Completed [facility] HPV 2011-04-07 00:00:00 Completed [facility] HPV 2011-04-07 00:00:00 Completed [facility] HPV 2011-04-07 00:00:00 Completed [facility] HPV 2011-04-07 00:00:00 Completed [facility] HPV 2011-04-07 00:00:00 Completed [facility] HPV 2011-04-07 00:00:00 Completed [facility] HPV 2011-04-07 00:00:00 Completed [facility] HPV 2011-04-07 00:00:00 Completed [facility] HPV 2011-04-07 00:00:00 Completed [facility] HPV 2011-04-07 00:00:00 Completed [facility] HPV 2011-04-07 00:00:00 Completed [facility] HPV 2011-04-07 00:00:00 Completed [facility] HPV 2011-04-07 00:00:00 Completed [facility] HPV 2011-04-07 00:00:00 Completed [facility] HPV 2011-04-07 00:00:00 Completed [facility] HPV 2011-04-07 00:00:00 Completed [facility] HPV 2011-04-07 00:00:00 Completed [facility] HPV 2011-04-07 00:00:00 Completed [facility] HPV 2011-04-07 00:00:00 Completed [facility] HPV 2011-04-07 00:00:00 Completed [facility] HPV 2011-04-07 00:00:00 Completed [facility] HPV 2011-04-07 00:00:00 Completed [facility] HPV 2011-04-07 00:00:00 Completed [facility] HPV 2011-04-07 00:00:00 Completed [facility] HPV 2011-04-07 00:00:00 Completed [facility] HPV 2011-04-07 00:00:00 Completed [facility] HPV 2011-04-07 00:00:00 Completed [facility] HPV 2011-04-07 00:00:00 Completed [facility] HPV 2011-04-07 00:00:00 Completed [facility] HPV 2011-04-07 00:00:00 Completed [facility] HPV 2011-04-07 00:00:00 Completed [facility] HPV 2011-04-07 00:00:00 Completed [facility] HPV 2011-04-07 00:00:00 Completed [facility] HPV 2011-04-07 00:00:00 Completed [facility] HPV 2011-04-07 00:00:00 Completed [facility] HPV 2011-04-07 00:00:00 Completed [facility] HPV 2011-04-07 00:00:00 Completed [facility] HPV 2011-04-07 00:00:00 Completed [facility] HPV 2011-04-07 00:00:00 Completed [facility] HPV 2011-04-07 00:00:00 Completed [facility] HPV 2011-04-07 00:00:00 Completed [facility] HPV 2011-04-07 00:00:00 Completed [facility] HPV 2011-04-07 00:00:00 Completed [facility] HPV 2011-04-07 00:00:00 Completed [facility] HPV 2011-04-07 00:00:00 Completed [facility] HPV 2011-04-07 00:00:00 Completed [facility] HPV 2011-04-07 00:00:00 Completed [facility] HPV 2011-04-07 00:00:00 Completed [facility] HPV 2011-04-07 00:00:00 Completed [facility] HPV 2011-04-07 00:00:00 Completed [facility] HPV 2011-04-07 00:00:00 Completed [facility] HPV 2011-04-07 00:00:00 Completed [facility] HPV 2011-04-07 00:00:00 Completed [facility] HPV 2011-04-07 00:00:00 Completed [facility] HPV 2011-04-07 00:00:00 Completed [facility] HPV 2011-04-07 00:00:00 Completed [facility] HPV 2011-04-07 00:00:00 Completed [facility] HPV 2011-04-07 00:00:00 Completed [facility] HPV 2011-04-07 00:00:00 Completed [facility] HPV 2011-04-07 00:00:00 Completed [facility] HPV 2011-04-07 00:00:00 Completed [facility] HPV 2011-04-07 00:00:00 Completed [facility] HPV 2011-04-07 00:00:00 Completed [facility] HPV 2011-04-07 00:00:00 Completed [facility] HPV 2011-04-07 00:00:00 Completed [facility] HPV 2011-04-07 00:00:00 Completed [facility] HPV 2011-04-07 00:00:00 Completed [facility] HPV 2011-04-07 00:00:00 Completed [facility] HPV 2011-04-07 00:00:00 Completed [facility] HPV 2011-04-07 00:00:00 Completed [facility] HPV 2011-04-07 00:00:00 Completed [facility] HPV 2011-04-07 00:00:00 Completed [facility] HPV 2011-04-07 00:00:00 Completed [facility] HPV 2011-04-07 00:00:00 Completed [facility] HPV 2011-04-07 00:00:00 Completed [facility] HPV 2011-04-07 00:00:00 Completed [facility] HPV 2011-04-07 00:00:00 Completed [facility] HPV 2011-04-07 00:00:00 Completed [facility] HPV 2011-04-07 00:00:00 Completed [facility] HPV 2011-04-07 00:00:00 Completed [facility] HPV 2011-04-07 00:00:00 Completed [facility] HPV 2011-04-07 00:00:00 Completed [facility] HPV 2011-04-07 00:00:00 Completed [facility] HPV 2011-04-07 00:00:00 Completed [facility] HPV 2011-04-07 00:00:00 Completed [facility] HPV 2011-04-07 00:00:00 Completed [facility] HPV 2011-04-07 00:00:00 Completed [facility] HPV 2011-04-07 00:00:00 Completed [facility] HPV 2011-04-07 00:00:00 Completed [facility] HPV 2011-04-07 00:00:00 Completed [facility] HPV 2011-04-07 00:00:00 Completed [facility] HPV 2011-04-07 00:00:00 Completed [facility] HPV 2011-04-07 00:00:00 Completed [facility] HPV 2011-04-07 00:00:00 Completed [facility] HPV 2011-04-07 00:00:00 Completed [facility] HPV 2011-04-07 00:00:00 Completed [facility] HPV 2011-04-07 00:00:00 Completed [facility] Polio (IPV/OPV) 2006-04-20 00:00:00 Completed [facility] Varicella (varivax)(chicken pox) 2006-04-20 00:00:00 Completed [facility] DTAP 2006-04-20 00:00:00 Completed [facility] MMR 2006-04-20 00:00:00 Completed [facility] Polio (IPV/OPV) 2006-04-20 00:00:00 Completed [facility] Varicella (varivax)(chicken pox) 2006-04-20 00:00:00 Completed [facility] DTAP 2006-04-20 00:00:00 Completed [facility] MMR 2006-04-20 00:00:00 Completed [facility] Polio (IPV/OPV) 2006-04-20 00:00:00 Completed [facility] Polio (IPV/OPV) 2006-04-20 00:00:00 Completed [facility] Varicella (varivax)(chicken pox) 2006-04-20 00:00:00 Completed [facility] DTAP 2006-04-20 00:00:00 Completed [facility] MMR 2006-04-20 00:00:00 Completed [facility] Varicella (varivax)(chicken pox) 2006-04-20 00:00:00 Completed [facility] DTAP 2006-04-20 00:00:00 Completed [facility] MMR 2006-04-20 00:00:00 Completed [facility] Polio (IPV/OPV) 2006-04-20 00:00:00 Completed [facility] Varicella (varivax)(chicken pox) 2006-04-20 00:00:00 Completed [facility] DTAP 2006-04-20 00:00:00 Completed [facility] MMR 2006-04-20 00:00:00 Completed [facility] Polio (IPV/OPV) 2006-04-20 00:00:00 Completed [facility] Varicella (varivax)(chicken pox) 2006-04-20 00:00:00 Completed [facility] DTAP 2006-04-20 00:00:00 Completed [facility] MMR 2006-04-20 00:00:00 Completed [facility] Polio (IPV/OPV) 2006-04-20 00:00:00 Completed [facility] Varicella (varivax)(chicken pox) 2006-04-20 00:00:00 Completed [facility] DTAP 2006-04-20 00:00:00 Completed [facility] MMR 2006-04-20 00:00:00 Completed [facility] Polio (IPV/OPV) 2006-04-20 00:00:00 Completed [facility] Varicella (varivax)(chicken pox) 2006-04-20 00:00:00 Completed [facility] DTAP 2006-04-20 00:00:00 Completed [facility] MMR 2006-04-20 00:00:00 Completed [facility] Polio (IPV/OPV) 2006-04-20 00:00:00 Completed [facility] Varicella (varivax)(chicken pox) 2006-04-20 00:00:00 Completed [facility] DTAP 2006-04-20 00:00:00 Completed [facility] MMR 2006-04-20 00:00:00 Completed [facility] Polio (IPV/OPV) 2006-04-20 00:00:00 Completed [facility] Varicella (varivax)(chicken pox) 2006-04-20 00:00:00 Completed [facility] DTAP 2006-04-20 00:00:00 Completed [facility] MMR 2006-04-20 00:00:00 Completed [facility] Polio (IPV/OPV) 2006-04-20 00:00:00 Completed [facility] Varicella (varivax)(chicken pox) 2006-04-20 00:00:00 Completed [facility] DTAP 2006-04-20 00:00:00 Completed [facility] MMR 2006-04-20 00:00:00 Completed [facility] Polio (IPV/OPV) 2006-04-20 00:00:00 Completed [facility] Varicella (varivax)(chicken pox) 2006-04-20 00:00:00 Completed [facility] DTAP 2006-04-20 00:00:00 Completed [facility] MMR 2006-04-20 00:00:00 Completed [facility] Polio (IPV/OPV) 2006-04-20 00:00:00 Completed [facility] Polio (IPV/OPV) 2006-04-20 00:00:00 Completed [facility] Varicella (varivax)(chicken pox) 2006-04-20 00:00:00 Completed [facility] DTAP 2006-04-20 00:00:00 Completed [facility] MMR 2006-04-20 00:00:00 Completed [facility] Varicella (varivax)(chicken pox) 2006-04-20 00:00:00 Completed [facility] DTAP 2006-04-20 00:00:00 Completed [facility] Polio (IPV/OPV) 2006-04-20 00:00:00 Completed [facility] Varicella (varivax)(chicken pox) 2006-04-20 00:00:00 Completed [facility] DTAP 2006-04-20 00:00:00 Completed [facility] MMR 2006-04-20 00:00:00 Completed [facility] MMR 2006-04-20 00:00:00 Completed [facility] Polio (IPV/OPV) 2006-04-20 00:00:00 Completed [facility] Varicella (varivax)(chicken pox) 2006-04-20 00:00:00 Completed [facility] DTAP 2006-04-20 00:00:00 Completed [facility] MMR 2006-04-20 00:00:00 Completed [facility] Polio (IPV/OPV) 2006-04-20 00:00:00 Completed [facility] Varicella (varivax)(chicken pox) 2006-04-20 00:00:00 Completed [facility] DTAP 2006-04-20 00:00:00 Completed [facility] MMR 2006-04-20 00:00:00 Completed [facility] Polio (IPV/OPV) 2006-04-20 00:00:00 Completed [facility] Varicella (varivax)(chicken pox) 2006-04-20 00:00:00 Completed [facility] DTAP 2006-04-20 00:00:00 Completed [facility] MMR 2006-04-20 00:00:00 Completed [facility] Polio (IPV/OPV) 2006-04-20 00:00:00 Completed [facility] Varicella (varivax)(chicken pox) 2006-04-20 00:00:00 Completed [facility] DTAP 2006-04-20 00:00:00 Completed [facility] MMR 2006-04-20 00:00:00 Completed [facility] Polio (IPV/OPV) 2006-04-20 00:00:00 Completed [facility] Varicella (varivax)(chicken pox) 2006-04-20 00:00:00 Completed [facility] DTAP 2006-04-20 00:00:00 Completed [facility] MMR 2006-04-20 00:00:00 Completed [facility] Polio (IPV/OPV) 2006-04-20 00:00:00 Completed [facility] Varicella (varivax)(chicken pox) 2006-04-20 00:00:00 Completed [facility] DTAP 2006-04-20 00:00:00 Completed [facility] MMR 2006-04-20 00:00:00 Completed [facility] Polio (IPV/OPV) 2006-04-20 00:00:00 Completed [facility] Varicella (varivax)(chicken pox) 2006-04-20 00:00:00 Completed [facility] DTAP 2006-04-20 00:00:00 Completed [facility] MMR 2006-04-20 00:00:00 Completed [facility] Polio (IPV/OPV) 2006-04-20 00:00:00 Completed [facility] Varicella (varivax)(chicken pox) 2006-04-20 00:00:00 Completed [facility] DTAP 2006-04-20 00:00:00 Completed [facility] MMR 2006-04-20 00:00:00 Completed [facility] Polio (IPV/OPV) 2006-04-20 00:00:00 Completed [facility] Varicella (varivax)(chicken pox) 2006-04-20 00:00:00 Completed [facility] DTAP 2006-04-20 00:00:00 Completed [facility] MMR 2006-04-20 00:00:00 Completed [facility] Polio (IPV/OPV) 2006-04-20 00:00:00 Completed [facility] Polio (IPV/OPV) 2006-04-20 00:00:00 Completed [facility] Varicella (varivax)(chicken pox) 2006-04-20 00:00:00 Completed [facility] DTAP 2006-04-20 00:00:00 Completed [facility] MMR 2006-04-20 00:00:00 Completed [facility] Varicella (varivax)(chicken pox) 2006-04-20 00:00:00 Completed [facility] DTAP 2006-04-20 00:00:00 Completed [facility] MMR 2006-04-20 00:00:00 Completed [facility] Polio (IPV/OPV) 2006-04-20 00:00:00 Completed [facility] Varicella (varivax)(chicken pox) 2006-04-20 00:00:00 Completed [facility] DTAP 2006-04-20 00:00:00 Completed [facility] MMR 2006-04-20 00:00:00 Completed [facility] Polio (IPV/OPV) 2006-04-20 00:00:00 Completed [facility] Varicella (varivax)(chicken pox) 2006-04-20 00:00:00 Completed [facility] DTAP 2006-04-20 00:00:00 Completed [facility] MMR 2006-04-20 00:00:00 Completed [facility] Polio (IPV/OPV) 2006-04-20 00:00:00 Completed [facility] Varicella (varivax)(chicken pox) 2006-04-20 00:00:00 Completed [facility] DTAP 2006-04-20 00:00:00 Completed [facility] MMR 2006-04-20 00:00:00 Completed [facility] Polio (IPV/OPV) 2006-04-20 00:00:00 Completed [facility] Varicella (varivax)(chicken pox) 2006-04-20 00:00:00 Completed [facility] DTAP 2006-04-20 00:00:00 Completed [facility] MMR 2006-04-20 00:00:00 Completed [facility] Polio (IPV/OPV) 2006-04-20 00:00:00 Completed [facility] Varicella (varivax)(chicken pox) 2006-04-20 00:00:00 Completed [facility] DTAP 2006-04-20 00:00:00 Completed [facility] MMR 2006-04-20 00:00:00 Completed [facility] Polio (IPV/OPV) 2006-04-20 00:00:00 Completed [facility] Varicella (varivax)(chicken pox) 2006-04-20 00:00:00 Completed [facility] DTAP 2006-04-20 00:00:00 Completed [facility] MMR 2006-04-20 00:00:00 Completed [facility] Polio (IPV/OPV) 2006-04-20 00:00:00 Completed [facility] Varicella (varivax)(chicken pox) 2006-04-20 00:00:00 Completed [facility] DTAP 2006-04-20 00:00:00 Completed [facility] MMR 2006-04-20 00:00:00 Completed [facility] Polio (IPV/OPV) 2006-04-20 00:00:00 Completed [facility] Polio (IPV/OPV) 2006-04-20 00:00:00 Completed [facility] Varicella (varivax)(chicken pox) 2006-04-20 00:00:00 Completed [facility] DTAP 2006-04-20 00:00:00 Completed [facility] MMR 2006-04-20 00:00:00 Completed [facility] Varicella (varivax)(chicken pox) 2006-04-20 00:00:00 Completed [facility] DTAP 2006-04-20 00:00:00 Completed [facility] MMR 2006-04-20 00:00:00 Completed [facility] Polio (IPV/OPV) 2006-04-20 00:00:00 Completed [facility] Varicella (varivax)(chicken pox) 2006-04-20 00:00:00 Completed [facility] DTAP 2006-04-20 00:00:00 Completed [facility] MMR 2006-04-20 00:00:00 Completed [facility] Polio (IPV/OPV) 2006-04-20 00:00:00 Completed [facility] Varicella (varivax)(chicken pox) 2006-04-20 00:00:00 Completed [facility] DTAP 2006-04-20 00:00:00 Completed [facility] MMR 2006-04-20 00:00:00 Completed [facility] Polio (IPV/OPV) 2006-04-20 00:00:00 Completed [facility] Varicella (varivax)(chicken pox) 2006-04-20 00:00:00 Completed [facility] DTAP 2006-04-20 00:00:00 Completed [facility] MMR 2006-04-20 00:00:00 Completed [facility] Polio (IPV/OPV) 2006-04-20 00:00:00 Completed [facility] Varicella (varivax)(chicken pox) 2006-04-20 00:00:00 Completed [facility] DTAP 2006-04-20 00:00:00 Completed [facility] MMR 2006-04-20 00:00:00 Completed [facility] Polio (IPV/OPV) 2006-04-20 00:00:00 Completed [facility] Varicella (varivax)(chicken pox) 2006-04-20 00:00:00 Completed [facility] DTAP 2006-04-20 00:00:00 Completed [facility] MMR 2006-04-20 00:00:00 Completed [facility] Polio (IPV/OPV) 2006-04-20 00:00:00 Completed [facility] Varicella (varivax)(chicken pox) 2006-04-20 00:00:00 Completed [facility] DTAP 2006-04-20 00:00:00 Completed [facility] MMR 2006-04-20 00:00:00 Completed [facility] Polio (IPV/OPV) 2006-04-20 00:00:00 Completed [facility] Varicella (varivax)(chicken pox) 2006-04-20 00:00:00 Completed [facility] DTAP 2006-04-20 00:00:00 Completed [facility] MMR 2006-04-20 00:00:00 Completed [facility] Polio (IPV/OPV) 2006-04-20 00:00:00 Completed [facility] Varicella (varivax)(chicken pox) 2006-04-20 00:00:00 Completed [facility] DTAP 2006-04-20 00:00:00 Completed [facility] MMR 2006-04-20 00:00:00 Completed [facility] Polio (IPV/OPV) 2006-04-20 00:00:00 Completed [facility] Polio (IPV/OPV) 2006-04-20 00:00:00 Completed [facility] Varicella (varivax)(chicken pox) 2006-04-20 00:00:00 Completed [facility] DTAP 2006-04-20 00:00:00 Completed [facility] MMR 2006-04-20 00:00:00 Completed [facility] Varicella (varivax)(chicken pox) 2006-04-20 00:00:00 Completed [facility] DTAP 2006-04-20 00:00:00 Completed [facility] Polio (IPV/OPV) 2006-04-20 00:00:00 Completed [facility] [facility] MMR 2006-04-20 00:00:00 Completed [facility] Varicella (varivax)(chicken pox) 2006-04-20 00:00:00 Completed [facility] DTAP 2006-04-20 00:00:00 Completed [facility] MMR 2006-04-20 00:00:00 Completed [facility] Polio (IPV/OPV) 2006-04-20 00:00:00 Completed [facility] Varicella (varivax)(chicken pox) 2006-04-20 00:00:00 Completed [facility] DTAP 2006-04-20 00:00:00 Completed [facility] MMR 2006-04-20 00:00:00 Completed [facility] Polio (IPV/OPV) 2006-04-20 00:00:00 Completed [facility] Varicella (varivax)(chicken pox) 2006-04-20 00:00:00 Completed [facility] DTAP 2006-04-20 00:00:00 Completed [facility] MMR 2006-04-20 00:00:00 Completed [facility] Polio (IPV/OPV) 2006-04-20 00:00:00 Completed [facility] Varicella (varivax)(chicken pox) 2006-04-20 00:00:00 Completed [facility] DTAP 2006-04-20 00:00:00 Completed [facility] MMR 2006-04-20 00:00:00 Completed [facility] Polio (IPV/OPV) 2006-04-20 00:00:00 Completed [facility] Varicella (varivax)(chicken pox) 2006-04-20 00:00:00 Completed [facility] DTAP 2006-04-20 00:00:00 Completed [facility] MMR 2006-04-20 00:00:00 Completed [facility] Polio (IPV/OPV) 2006-04-20 00:00:00 Completed [facility] Polio (IPV/OPV) 2006-04-20 00:00:00 Completed [facility] Varicella (varivax)(chicken pox) 2006-04-20 00:00:00 Completed [facility] DTAP 2006-04-20 00:00:00 Completed [facility] MMR 2006-04-20 00:00:00 Completed [facility] Varicella (varivax)(chicken pox) 2006-04-20 00:00:00 Completed [facility] DTAP 2006-04-20 00:00:00 Completed [facility] Polio (IPV/OPV) 2006-04-20 00:00:00 Completed [facility] Varicella (varivax)(chicken pox) 2006-04-20 00:00:00 Completed [facility] MMR 2006-04-20 00:00:00 Completed [facility] DTAP 2006-04-20 00:00:00 Completed [facility] MMR 2006-04-20 00:00:00 Completed [facility] Polio (IPV/OPV) 2006-04-20 00:00:00 Completed [facility] Varicella (varivax)(chicken pox) 2006-04-20 00:00:00 Completed [facility] DTAP 2006-04-20 00:00:00 Completed [facility] MMR 2006-04-20 00:00:00 Completed [facility] Polio (IPV/OPV) 2006-04-20 00:00:00 Completed [facility] Varicella (varivax)(chicken pox) 2006-04-20 00:00:00 Completed [facility] DTAP 2006-04-20 00:00:00 Completed [facility] MMR 2006-04-20 00:00:00 Completed [facility] Polio (IPV/OPV) 2006-04-20 00:00:00 Completed [facility] Varicella (varivax)(chicken pox) 2006-04-20 00:00:00 Completed [facility] DTAP 2006-04-20 00:00:00 Completed [facility] MMR 2006-04-20 00:00:00 Completed [facility] Polio (IPV/OPV) 2006-04-20 00:00:00 Completed [facility] Varicella (varivax)(chicken pox) 2006-04-20 00:00:00 Completed [facility] DTAP 2006-04-20 00:00:00 Completed [facility] MMR 2006-04-20 00:00:00 Completed [facility] Polio (IPV/OPV) 2006-04-20 00:00:00 Completed [facility] Varicella (varivax)(chicken pox) 2006-04-20 00:00:00 Completed [facility] DTAP 2006-04-20 00:00:00 Completed [facility] MMR 2006-04-20 00:00:00 Completed [facility] Polio (IPV/OPV) 2006-04-20 00:00:00 Completed [facility] Varicella (varivax)(chicken pox) 2006-04-20 00:00:00 Completed [facility] DTAP 2006-04-20 00:00:00 Completed [facility] MMR 2006-04-20 00:00:00 Completed [facility] Polio (IPV/OPV) 2006-04-20 00:00:00 Completed [facility] Polio (IPV/OPV) 2006-04-20 00:00:00 Completed [facility] Varicella (varivax)(chicken pox) 2006-04-20 00:00:00 Completed [facility] DTAP 2006-04-20 00:00:00 Completed [facility] MMR 2006-04-20 00:00:00 Completed [facility] Varicella (varivax)(chicken pox) 2006-04-20 00:00:00 Completed [facility] DTAP 2006-04-20 00:00:00 Completed [facility] Polio (IPV/OPV) 2006-04-20 00:00:00 Completed [facility] MMR 2006-04-20 00:00:00 Completed [facility] Varicella (varivax)(chicken pox) 2006-04-20 00:00:00 Completed [facility] DTAP 2006-04-20 00:00:00 Completed [facility] MMR 2006-04-20 00:00:00 Completed [facility] Polio (IPV/OPV) 2006-04-20 00:00:00 Completed [facility] Varicella (varivax)(chicken pox) 2006-04-20 00:00:00 Completed [facility] DTAP 2006-04-20 00:00:00 Completed [facility] MMR 2006-04-20 00:00:00 Completed [facility] Polio (IPV/OPV) 2006-04-20 00:00:00 Completed [facility] Varicella (varivax)(chicken pox) 2006-04-20 00:00:00 Completed [facility] DTAP 2006-04-20 00:00:00 Completed [facility] MMR 2006-04-20 00:00:00 Completed [facility] Polio (IPV/OPV) 2006-04-20 00:00:00 Completed [facility] Varicella (varivax)(chicken pox) 2006-04-20 00:00:00 Completed [facility] DTAP 2006-04-20 00:00:00 Completed [facility] MMR 2006-04-20 00:00:00 Completed [facility] Polio (IPV/OPV) 2006-04-20 00:00:00 Completed [facility] Varicella (varivax)(chicken pox) 2006-04-20 00:00:00 Completed [facility] DTAP 2006-04-20 00:00:00 Completed [facility] MMR 2006-04-20 00:00:00 Completed [facility] Polio (IPV/OPV) 2006-04-20 00:00:00 Completed [facility] Varicella (varivax)(chicken pox) 2006-04-20 00:00:00 Completed [facility] DTAP 2006-04-20 00:00:00 Completed [facility] MMR 2006-04-20 00:00:00 Completed [facility] Polio (IPV/OPV) 2006-04-20 00:00:00 Completed [facility] Varicella (varivax)(chicken pox) 2006-04-20 00:00:00 Completed [facility] DTAP 2006-04-20 00:00:00 Completed [facility] MMR 2006-04-20 00:00:00 Completed [facility] Polio (IPV/OPV) 2006-04-20 00:00:00 Completed [facility] Polio (IPV/OPV) 2006-04-20 00:00:00 Completed [facility] Varicella (varivax)(chicken pox) 2006-04-20 00:00:00 Completed [facility] DTAP 2006-04-20 00:00:00 Completed [facility] MMR 2006-04-20 00:00:00 Completed [facility] Varicella (varivax)(chicken pox) 2006-04-20 00:00:00 Completed [facility] Polio (IPV/OPV) 2006-04-20 00:00:00 Completed [facility] Varicella (varivax)(chicken pox) 2006-04-20 00:00:00 Completed [facility] DTAP 2006-04-20 00:00:00 Completed [facility] DTAP 2006-04-20 00:00:00 Completed [facility] MMR 2006-04-20 00:00:00 Completed [facility] MMR 2006-04-20 00:00:00 Completed [facility] Polio (IPV/OPV) 2006-04-20 00:00:00 Completed [facility] Varicella (varivax)(chicken pox) 2006-04-20 00:00:00 Completed [facility] DTAP 2006-04-20 00:00:00 Completed [facility] MMR 2006-04-20 00:00:00 Completed [facility] Polio (IPV/OPV) 2006-04-20 00:00:00 Completed [facility] Varicella (varivax)(chicken pox) 2006-04-20 00:00:00 Completed [facility] DTAP 2006-04-20 00:00:00 Completed [facility] MMR 2006-04-20 00:00:00 Completed [facility] Polio (IPV/OPV) 2006-04-20 00:00:00 Completed [facility] Varicella (varivax)(chicken pox) 2006-04-20 00:00:00 Completed [facility] DTAP 2006-04-20 00:00:00 Completed [facility] MMR 2006-04-20 00:00:00 Completed [facility] Polio (IPV/OPV) 2006-04-20 00:00:00 Completed [facility] Varicella (varivax)(chicken pox) 2006-04-20 00:00:00 Completed [facility] DTAP 2006-04-20 00:00:00 Completed [facility] MMR 2006-04-20 00:00:00 Completed [facility] Polio (IPV/OPV) 2006-04-20 00:00:00 Completed [facility] Varicella (varivax)(chicken pox) 2006-04-20 00:00:00 Completed [facility] DTAP 2006-04-20 00:00:00 Completed [facility] MMR 2006-04-20 00:00:00 Completed [facility] Polio (IPV/OPV) 2006-04-20 00:00:00 Completed [facility] Varicella (varivax)(chicken pox) 2006-04-20 00:00:00 Completed [facility] DTAP 2006-04-20 00:00:00 Completed [facility] MMR 2006-04-20 00:00:00 Completed [facility] Polio (IPV/OPV) 2006-04-20 00:00:00 Completed [facility] Polio (IPV/OPV) 2006-04-20 00:00:00 Completed [facility] Varicella (varivax)(chicken pox) 2006-04-20 00:00:00 Completed [facility] DTAP 2006-04-20 00:00:00 Completed [facility] MMR 2006-04-20 00:00:00 Completed [facility] Polio (IPV/OPV) 2006-04-20 00:00:00 Completed [facility] Varicella (varivax)(chicken pox) 2006-04-20 00:00:00 Completed [facility] DTAP 2006-04-20 00:00:00 Completed [facility] MMR 2006-04-20 00:00:00 Completed [facility] Varicella (varivax)(chicken pox) 2006-04-20 00:00:00 Completed [facility] DTAP 2006-04-20 00:00:00 Completed [facility] MMR 2006-04-20 00:00:00 Completed [facility] Polio (IPV/OPV) 2006-04-20 00:00:00 Completed [facility] Varicella (varivax)(chicken pox) 2006-04-20 00:00:00 Completed [facility] DTAP 2006-04-20 00:00:00 Completed [facility] MMR 2006-04-20 00:00:00 Completed [facility] Polio (IPV/OPV) 2006-04-20 00:00:00 Completed [facility] Varicella (varivax)(chicken pox) 2006-04-20 00:00:00 Completed [facility] DTAP 2006-04-20 00:00:00 Completed [facility] MMR 2006-04-20 00:00:00 Completed [facility] Polio (IPV/OPV) 2006-04-20 00:00:00 Completed [facility] Varicella (varivax)(chicken pox) 2006-04-20 00:00:00 Completed [facility] DTAP 2006-04-20 00:00:00 Completed [facility] MMR 2006-04-20 00:00:00 Completed [facility] Polio (IPV/OPV) 2006-04-20 00:00:00 Completed [facility] Varicella (varivax)(chicken pox) 2006-04-20 00:00:00 Completed [facility] DTAP 2006-04-20 00:00:00 Completed [facility] MMR 2006-04-20 00:00:00 Completed [facility] Polio (IPV/OPV) 2006-04-20 00:00:00 Completed [facility] Varicella (varivax)(chicken pox) 2006-04-20 00:00:00 Completed [facility] DTAP 2006-04-20 00:00:00 Completed [facility] MMR 2006-04-20 00:00:00 Completed [facility] Polio (IPV/OPV) 2006-04-20 00:00:00 Completed [facility] Varicella (varivax)(chicken pox) 2006-04-20 00:00:00 Completed [facility] DTAP 2006-04-20 00:00:00 Completed [facility] MMR 2006-04-20 00:00:00 Completed [facility] Polio (IPV/OPV) 2006-04-20 00:00:00 Completed [facility] Varicella (varivax)(chicken pox) 2006-04-20 00:00:00 Completed [facility] DTAP 2006-04-20 00:00:00 Completed [facility] MMR 2006-04-20 00:00:00 Completed [facility] Polio (IPV/OPV) 2006-04-20 00:00:00 Completed [facility] Polio (IPV/OPV) 2006-04-20 00:00:00 Completed [facility] Varicella (varivax)(chicken pox) 2006-04-20 00:00:00 Completed [facility] DTAP 2006-04-20 00:00:00 Completed [facility] MMR 2006-04-20 00:00:00 Completed [facility] Varicella (varivax)(chicken pox) 2006-04-20 00:00:00 Completed [facility] DTAP 2006-04-20 00:00:00 Completed [facility] MMR 2006-04-20 00:00:00 Completed [facility] Polio (IPV/OPV) 2006-04-20 00:00:00 Completed [facility] Varicella (varivax)(chicken pox) 2006-04-20 00:00:00 Completed [facility] DTAP 2006-04-20 00:00:00 Completed [facility] MMR 2006-04-20 00:00:00 Completed [facility] Polio (IPV/OPV) 2006-04-20 00:00:00 Completed [facility] Varicella (varivax)(chicken pox) 2006-04-20 00:00:00 Completed [facility] DTAP 2006-04-20 00:00:00 Completed [facility] MMR 2006-04-20 00:00:00 Completed [facility] Polio (IPV/OPV) 2006-04-20 00:00:00 Completed [facility] Varicella (varivax)(chicken pox) 2006-04-20 00:00:00 Completed [facility] DTAP 2006-04-20 00:00:00 Completed [facility] MMR 2006-04-20 00:00:00 Completed [facility] Polio (IPV/OPV) 2006-04-20 00:00:00 Completed [facility] Polio (IPV/OPV) 2006-04-20 00:00:00 Completed [facility] Varicella (varivax)(chicken pox) 2006-04-20 00:00:00 Completed [facility] DTAP 2006-04-20 00:00:00 Completed [facility] MMR 2006-04-20 00:00:00 Completed [facility] Polio (IPV/OPV) 2006-04-20 00:00:00 Completed [facility] Varicella (varivax)(chicken pox) 2006-04-20 00:00:00 Completed [facility] DTAP 2006-04-20 00:00:00 Completed [facility] MMR 2006-04-20 00:00:00 Completed [facility] Varicella (varivax)(chicken pox) 2006-04-20 00:00:00 Completed [facility] DTAP 2006-04-20 00:00:00 Completed [facility] MMR 2006-04-20 00:00:00 Completed [facility] Polio (IPV/OPV) 2006-04-20 00:00:00 Completed [facility] Varicella (varivax)(chicken pox) 2006-04-20 00:00:00 Completed [facility] DTAP 2006-04-20 00:00:00 Completed [facility] MMR 2006-04-20 00:00:00 Completed [facility] Polio (IPV/OPV) 2006-04-20 00:00:00 Completed [facility] Varicella (varivax)(chicken pox) 2006-04-20 00:00:00 Completed [facility] [place] DTAP 2006-04-20 00:00:00 Completed [facility] MMR 2006-04-20 00:00:00 Completed [facility] Polio (IPV/OPV) 2006-04-20 00:00:00 Completed [facility] Varicella (varivax)(chicken pox) 2006-04-20 00:00:00 Completed [facility] DTAP 2006-04-20 00:00:00 Completed [facility] MMR 2006-04-20 00:00:00 Completed [facility] Polio (IPV/OPV) 2006-04-20 00:00:00 Completed [facility] Varicella (varivax)(chicken pox) 2006-04-20 00:00:00 Completed [facility] DTAP 2006-04-20 00:00:00 Completed [facility] MMR 2006-04-20 00:00:00 Completed [facility] Polio (IPV/OPV) 2006-04-20 00:00:00 Completed [facility] Varicella (varivax)(chicken pox) 2006-04-20 00:00:00 Completed [facility] DTAP 2006-04-20 00:00:00 Completed [facility] MMR 2006-04-20 00:00:00 Completed [facility] Polio (IPV/OPV) 2006-04-20 00:00:00 Completed [facility] Varicella (varivax)(chicken pox) 2006-04-20 00:00:00 Completed [facility] DTAP 2006-04-20 00:00:00 Completed [facility] MMR 2006-04-20 00:00:00 Completed [facility] Polio (IPV/OPV) 2006-04-20 00:00:00 Completed [facility] [place] Varicella (varivax)(chicken pox) 2006-04-20 00:00:00 Completed [facility] DTAP 2006-04-20 00:00:00 Completed [facility] MMR 2006-04-20 00:00:00 Completed [facility] Polio (IPV/OPV) 2006-04-20 00:00:00 Completed [facility] Varicella (varivax)(chicken pox) 2006-04-20 00:00:00 Completed [facility] DTAP 2006-04-20 00:00:00 Completed [facility] MMR 2006-04-20 00:00:00 Completed [facility] HEPATITIS A 2005-01-09 00:00:00 Completed [facility] HEPATITIS A 2005-01-09 00:00:00 Completed [facility] HEPATITIS A 2005-01-09 00:00:00 Completed [facility] HEPATITIS A 2005-01-09 00:00:00 Completed [facility] HEPATITIS A 2005-01-09 00:00:00 Completed [facility] HEPATITIS A 2005-01-09 00:00:00 Completed [facility] HEPATITIS A 2005-01-09 00:00:00 Completed [facility] HEPATITIS A 2005-01-09 00:00:00 Completed [facility] HEPATITIS A 2005-01-09 00:00:00 Completed [facility] HEPATITIS A 2005-01-09 00:00:00 Completed [facility] HEPATITIS A 2005-01-09 00:00:00 Completed [facility] HEPATITIS A 2005-01-09 00:00:00 Completed [facility] HEPATITIS A 2005-01-09 00:00:00 Completed [facility] HEPATITIS A 2005-01-09 00:00:00 Completed [facility] HEPATITIS A 2005-01-09 00:00:00 Completed [facility] HEPATITIS A 2005-01-09 00:00:00 Completed [facility] HEPATITIS A 2005-01-09 00:00:00 Completed [facility] HEPATITIS A 2005-01-09 00:00:00 Completed [facility] HEPATITIS A 2005-01-09 00:00:00 Completed [facility] HEPATITIS A 2005-01-09 00:00:00 Completed [facility] HEPATITIS A 2005-01-09 00:00:00 Completed [facility] HEPATITIS A 2005-01-09 00:00:00 Completed [facility] HEPATITIS A 2005-01-09 00:00:00 Completed [facility] HEPATITIS A 2005-01-09 00:00:00 Completed [facility] HEPATITIS A 2005-01-09 00:00:00 Completed [facility] HEPATITIS A 2005-01-09 00:00:00 Completed [facility] HEPATITIS A 2005-01-09 00:00:00 Completed [facility] HEPATITIS A 2005-01-09 00:00:00 Completed [facility] HEPATITIS A 2005-01-09 00:00:00 Completed [facility] HEPATITIS A 2005-01-09 00:00:00 Completed [facility] HEPATITIS A 2005-01-09 00:00:00 Completed [facility] HEPATITIS A 2005-01-09 00:00:00 Completed [facility] HEPATITIS A 2005-01-09 00:00:00 Completed [facility] HEPATITIS A 2005-01-09 00:00:00 Completed [facility] HEPATITIS A 2005-01-09 00:00:00 Completed [facility] HEPATITIS A 2005-01-09 00:00:00 Completed [facility] HEPATITIS A 2005-01-09 00:00:00 Completed [facility] HEPATITIS A 2005-01-09 00:00:00 Completed [facility] HEPATITIS A 2005-01-09 00:00:00 Completed [facility] HEPATITIS A 2005-01-09 00:00:00 Completed [facility] HEPATITIS A 2005-01-09 00:00:00 Completed [facility] HEPATITIS A 2005-01-09 00:00:00 Completed [facility] HEPATITIS A 2005-01-09 00:00:00 Completed [facility] HEPATITIS A 2005-01-09 00:00:00 Completed [facility] HEPATITIS A 2005-01-09 00:00:00 Completed [facility] HEPATITIS A 2005-01-09 00:00:00 Completed [facility] HEPATITIS A 2005-01-09 00:00:00 Completed [facility] HEPATITIS A 2005-01-09 00:00:00 Completed [facility] HEPATITIS A 2005-01-09 00:00:00 Completed [facility] HEPATITIS A 2005-01-09 00:00:00 Completed [facility] HEPATITIS A 2005-01-09 00:00:00 Completed [facility] HEPATITIS A 2005-01-09 00:00:00 Completed [facility] HEPATITIS A 2005-01-09 00:00:00 Completed [facility] HEPATITIS A 2005-01-09 00:00:00 Completed [facility] HEPATITIS A 2005-01-09 00:00:00 Completed [facility] HEPATITIS A 2005-01-09 00:00:00 Completed [facility] HEPATITIS A 2005-01-09 00:00:00 Completed [facility] HEPATITIS A 2005-01-09 00:00:00 Completed [facility] HEPATITIS A 2005-01-09 00:00:00 Completed [facility] HEPATITIS A 2005-01-09 00:00:00 Completed [facility] HEPATITIS A 2005-01-09 00:00:00 Completed [facility] HEPATITIS A 2005-01-09 00:00:00 Completed [facility] HEPATITIS A 2005-01-09 00:00:00 Completed [facility] HEPATITIS A 2005-01-09 00:00:00 Completed [facility] HEPATITIS A 2005-01-09 00:00:00 Completed [facility] HEPATITIS A 2005-01-09 00:00:00 Completed [facility] HEPATITIS A 2005-01-09 00:00:00 Completed [facility] HEPATITIS A 2005-01-09 00:00:00 Completed [facility] HEPATITIS A 2005-01-09 00:00:00 Completed [facility] HEPATITIS A 2005-01-09 00:00:00 Completed [facility] HEPATITIS A 2005-01-09 00:00:00 Completed [facility] HEPATITIS A 2005-01-09 00:00:00 Completed [facility] HEPATITIS A 2005-01-09 00:00:00 Completed [facility] HEPATITIS A 2005-01-09 00:00:00 Completed [facility] HEPATITIS A 2005-01-09 00:00:00 Completed [facility] HEPATITIS A 2005-01-09 00:00:00 Completed [facility] HEPATITIS A 2005-01-09 00:00:00 Completed [facility] HEPATITIS A 2005-01-09 00:00:00 Completed [facility] HEPATITIS A 2005-01-09 00:00:00 Completed [facility] HEPATITIS A 2005-01-09 00:00:00 Completed [facility] HEPATITIS A 2005-01-09 00:00:00 Completed [facility] HEPATITIS A 2005-01-09 00:00:00 Completed [facility] HEPATITIS A 2005-01-09 00:00:00 Completed [facility] HEPATITIS A 2005-01-09 00:00:00 Completed [facility] HEPATITIS A 2005-01-09 00:00:00 Completed [facility] HEPATITIS A 2005-01-09 00:00:00 Completed [facility] HEPATITIS A 2005-01-09 00:00:00 Completed [facility] HEPATITIS A 2005-01-09 00:00:00 Completed [facility] HEPATITIS A 2005-01-09 00:00:00 Completed [facility] HEPATITIS A 2005-01-09 00:00:00 Completed [facility] HEPATITIS A 2005-01-09 00:00:00 Completed [facility] HEPATITIS A 2005-01-09 00:00:00 Completed [facility] HEPATITIS A 2005-01-09 00:00:00 Completed [facility] HEPATITIS A 2005-01-09 00:00:00 Completed [facility] HEPATITIS A 2005-01-09 00:00:00 Completed [facility] HEPATITIS A 2005-01-09 00:00:00 Completed [facility] HEPATITIS A 2005-01-09 00:00:00 Completed [facility] HEPATITIS A 2005-01-09 00:00:00 Completed [facility] HEPATITIS A 2005-01-09 00:00:00 Completed [facility] HEPATITIS A 2005-01-09 00:00:00 Completed [facility] HEPATITIS A 2005-01-09 00:00:00 Completed [facility] HEPATITIS A 2005-01-09 00:00:00 Completed [facility] HEPATITIS A 2005-01-09 00:00:00 Completed [facility] HEPATITIS A 2004-05-28 00:00:00 Completed [facility] Pneumococcal 7 Conjugate, PCV7 (Prevnar7) 2004-05-28 00:00:00 Completed [facility] HEPATITIS A 2004-05-28 00:00:00 Completed [facility] Pneumococcal 7 Conjugate, PCV7 (Prevnar7) 2004-05-28 00:00:00 Completed [facility] HEPATITIS A 2004-05-28 00:00:00 Completed [facility] Pneumococcal 7 Conjugate, PCV7 (Prevnar7) 2004-05-28 00:00:00 Completed [facility] HEPATITIS A 2004-05-28 00:00:00 Completed [facility] Pneumococcal 7 Conjugate, PCV7 (Prevnar7) 2004-05-28 00:00:00 Completed [facility] Pneumococcal 7 Conjugate, PCV7 (Prevnar7) 2004-05-28 00:00:00 Completed [facility] HEPATITIS A 2004-05-28 00:00:00 Completed [facility] Pneumococcal 7 Conjugate, PCV7 (Prevnar7) 2004-05-28 00:00:00 Completed [facility] HEPATITIS A 2004-05-28 00:00:00 Completed [facility] Pneumococcal 7 Conjugate, PCV7 (Prevnar7) 2004-05-28 00:00:00 Completed [facility] HEPATITIS A 2004-05-28 00:00:00 Completed [facility] Pneumococcal 7 Conjugate, PCV7 (Prevnar7) 2004-05-28 00:00:00 Completed [facility] HEPATITIS A 2004-05-28 00:00:00 Completed [facility] Pneumococcal 7 Conjugate, PCV7 (Prevnar7) 2004-05-28 00:00:00 Completed [facility] HEPATITIS A 2004-05-28 00:00:00 Completed [facility] Pneumococcal 7 Conjugate, PCV7 (Prevnar7) 2004-05-28 00:00:00 Completed [facility] HEPATITIS A 2004-05-28 00:00:00 Completed [facility] HEPATITIS A 2004-05-28 00:00:00 Completed [facility] Pneumococcal 7 Conjugate, PCV7 (Prevnar7) 2004-05-28 00:00:00 Completed [facility] HEPATITIS A 2004-05-28 00:00:00 Completed [facility] Pneumococcal 7 Conjugate, PCV7 (Prevnar7) 2004-05-28 00:00:00 Completed [facility] HEPATITIS A 2004-05-28 00:00:00 Completed [facility] Pneumococcal 7 Conjugate, PCV7 (Prevnar7) 2004-05-28 00:00:00 Completed [facility] HEPATITIS A 2004-05-28 00:00:00 Completed [facility] Pneumococcal 7 Conjugate, PCV7 (Prevnar7) 2004-05-28 00:00:00 Completed [facility] Pneumococcal 7 Conjugate, PCV7 (Prevnar7) 2004-05-28 00:00:00 Completed [facility] HEPATITIS A 2004-05-28 00:00:00 Completed [facility] Pneumococcal 7 Conjugate, PCV7 (Prevnar7) 2004-05-28 00:00:00 Completed [facility] HEPATITIS A 2004-05-28 00:00:00 Completed [facility] Pneumococcal 7 Conjugate, PCV7 (Prevnar7) 2004-05-28 00:00:00 Completed [facility] HEPATITIS A 2004-05-28 00:00:00 Completed [facility] Pneumococcal 7 Conjugate, PCV7 (Prevnar7) 2004-05-28 00:00:00 Completed [facility] HEPATITIS A 2004-05-28 00:00:00 Completed [facility] Pneumococcal 7 Conjugate, PCV7 (Prevnar7) 2004-05-28 00:00:00 Completed [facility] HEPATITIS A 2004-05-28 00:00:00 Completed [facility] Pneumococcal 7 Conjugate, PCV7 (Prevnar7) 2004-05-28 00:00:00 Completed [facility] HEPATITIS A 2004-05-28 00:00:00 Completed [facility] Pneumococcal 7 Conjugate, PCV7 (Prevnar7) 2004-05-28 00:00:00 Completed [facility] HEPATITIS A 2004-05-28 00:00:00 Completed [facility] Pneumococcal 7 Conjugate, PCV7 (Prevnar7) 2004-05-28 00:00:00 Completed [facility] HEPATITIS A 2004-05-28 00:00:00 Completed [facility] HEPATITIS A 2004-05-28 00:00:00 Completed [facility] Pneumococcal 7 Conjugate, PCV7 (Prevnar7) 2004-05-28 00:00:00 Completed [facility] HEPATITIS A 2004-05-28 00:00:00 Completed [facility] Pneumococcal 7 Conjugate, PCV7 (Prevnar7) 2004-05-28 00:00:00 Completed [facility] HEPATITIS A 2004-05-28 00:00:00 Completed [facility] Pneumococcal 7 Conjugate, PCV7 (Prevnar7) 2004-05-28 00:00:00 Completed [facility] HEPATITIS A 2004-05-28 00:00:00 Completed [facility] Pneumococcal 7 Conjugate, PCV7 (Prevnar7) 2004-05-28 00:00:00 Completed [facility] Pneumococcal 7 Conjugate, PCV7 (Prevnar7) 2004-05-28 00:00:00 Completed [facility] HEPATITIS A 2004-05-28 00:00:00 Completed [facility] Pneumococcal 7 Conjugate, PCV7 (Prevnar7) 2004-05-28 00:00:00 Completed [facility] HEPATITIS A 2004-05-28 00:00:00 Completed [facility] Pneumococcal 7 Conjugate, PCV7 (Prevnar7) 2004-05-28 00:00:00 Completed [facility] HEPATITIS A 2004-05-28 00:00:00 Completed [facility] Pneumococcal 7 Conjugate, PCV7 (Prevnar7) 2004-05-28 00:00:00 Completed [facility] HEPATITIS A 2004-05-28 00:00:00 Completed [facility] Pneumococcal 7 Conjugate, PCV7 (Prevnar7) 2004-05-28 00:00:00 Completed [facility] HEPATITIS A 2004-05-28 00:00:00 Completed [facility] HEPATITIS A 2004-05-28 00:00:00 Completed [facility] Pneumococcal 7 Conjugate, PCV7 (Prevnar7) 2004-05-28 00:00:00 Completed [facility] HEPATITIS A 2004-05-28 00:00:00 Completed [facility] Pneumococcal 7 Conjugate, PCV7 (Prevnar7) 2004-05-28 00:00:00 Completed [facility] HEPATITIS A 2004-05-28 00:00:00 Completed [facility] Pneumococcal 7 Conjugate, PCV7 (Prevnar7) 2004-05-28 00:00:00 Completed [facility] HEPATITIS A 2004-05-28 00:00:00 Completed [facility] Pneumococcal 7 Conjugate, PCV7 (Prevnar7) 2004-05-28 00:00:00 Completed [facility] Pneumococcal 7 Conjugate, PCV7 (Prevnar7) 2004-05-28 00:00:00 Completed [facility] HEPATITIS A 2004-05-28 00:00:00 Completed [facility] Pneumococcal 7 Conjugate, PCV7 (Prevnar7) 2004-05-28 00:00:00 Completed [facility] HEPATITIS A 2004-05-28 00:00:00 Completed [facility] Pneumococcal 7 Conjugate, PCV7 (Prevnar7) 2004-05-28 00:00:00 Completed [facility] HEPATITIS A 2004-05-28 00:00:00 Completed [facility] Pneumococcal 7 Conjugate, PCV7 (Prevnar7) 2004-05-28 00:00:00 Completed [facility] HEPATITIS A 2004-05-28 00:00:00 Completed [facility] Pneumococcal 7 Conjugate, PCV7 (Prevnar7) 2004-05-28 00:00:00 Completed [facility] HEPATITIS A 2004-05-28 00:00:00 Completed [facility] Pneumococcal 7 Conjugate, PCV7 (Prevnar7) 2004-05-28 00:00:00 Completed [facility] HEPATITIS A 2004-05-28 00:00:00 Completed [facility] HEPATITIS A 2004-05-28 00:00:00 Completed [facility] Pneumococcal 7 Conjugate, PCV7 (Prevnar7) 2004-05-28 00:00:00 Completed [facility] HEPATITIS A 2004-05-28 00:00:00 Completed [facility] Pneumococcal 7 Conjugate, PCV7 (Prevnar7) 2004-05-28 00:00:00 Completed [facility] HEPATITIS A 2004-05-28 00:00:00 Completed [facility] Pneumococcal 7 Conjugate, PCV7 (Prevnar7) 2004-05-28 00:00:00 Completed [facility] HEPATITIS A 2004-05-28 00:00:00 Completed [facility] Pneumococcal 7 Conjugate, PCV7 (Prevnar7) 2004-05-28 00:00:00 Completed [facility] Pneumococcal 7 Conjugate, PCV7 (Prevnar7) 2004-05-28 00:00:00 Completed [facility] HEPATITIS A 2004-05-28 00:00:00 Completed [facility] Pneumococcal 7 Conjugate, PCV7 (Prevnar7) 2004-05-28 00:00:00 Completed [facility] HEPATITIS A 2004-05-28 00:00:00 Completed [facility] Pneumococcal 7 Conjugate, PCV7 (Prevnar7) 2004-05-28 00:00:00 Completed [facility] HEPATITIS A 2004-05-28 00:00:00 Completed [facility] HEPATITIS A 2004-05-28 00:00:00 Completed [facility] Pneumococcal 7 Conjugate, PCV7 (Prevnar7) 2004-05-28 00:00:00 Completed [facility] HEPATITIS A 2004-05-28 00:00:00 Completed [facility] Pneumococcal 7 Conjugate, PCV7 (Prevnar7) 2004-05-28 00:00:00 Completed [facility] HEPATITIS A 2004-05-28 00:00:00 Completed [facility] Pneumococcal 7 Conjugate, PCV7 (Prevnar7) 2004-05-28 00:00:00 Completed [facility] HEPATITIS A 2004-05-28 00:00:00 Completed [facility] Pneumococcal 7 Conjugate, PCV7 (Prevnar7) 2004-05-28 00:00:00 Completed [facility] Pneumococcal 7 Conjugate, PCV7 (Prevnar7) 2004-05-28 00:00:00 Completed [facility] HEPATITIS A 2004-05-28 00:00:00 Completed [facility] Pneumococcal 7 Conjugate, PCV7 (Prevnar7) 2004-05-28 00:00:00 Completed [facility] HEPATITIS A 2004-05-28 00:00:00 Completed [facility] Pneumococcal 7 Conjugate, PCV7 (Prevnar7) 2004-05-28 00:00:00 Completed [facility] HEPATITIS A 2004-05-28 00:00:00 Completed [facility] Pneumococcal 7 Conjugate, PCV7 (Prevnar7) 2004-05-28 00:00:00 Completed [facility] HEPATITIS A 2004-05-28 00:00:00 Completed [facility] Pneumococcal 7 Conjugate, PCV7 (Prevnar7) 2004-05-28 00:00:00 Completed [facility] HEPATITIS A 2004-05-28 00:00:00 Completed [facility] HEPATITIS A 2004-05-28 00:00:00 Completed [facility] Pneumococcal 7 Conjugate, PCV7 (Prevnar7) 2004-05-28 00:00:00 Completed [facility] HEPATITIS A 2004-05-28 00:00:00 Completed [facility] Pneumococcal 7 Conjugate, PCV7 (Prevnar7) 2004-05-28 00:00:00 Completed [facility] HEPATITIS A 2004-05-28 00:00:00 Completed [facility] Pneumococcal 7 Conjugate, PCV7 (Prevnar7) 2004-05-28 00:00:00 Completed [facility] HEPATITIS A 2004-05-28 00:00:00 Completed [facility] Pneumococcal 7 Conjugate, PCV7 (Prevnar7) 2004-05-28 00:00:00 Completed [facility] Pneumococcal 7 Conjugate, PCV7 (Prevnar7) 2004-05-28 00:00:00 Completed [facility] HEPATITIS A 2004-05-28 00:00:00 Completed [facility] Pneumococcal 7 Conjugate, PCV7 (Prevnar7) 2004-05-28 00:00:00 Completed [facility] HEPATITIS A 2004-05-28 00:00:00 Completed [facility] Pneumococcal 7 Conjugate, PCV7 (Prevnar7) 2004-05-28 00:00:00 Completed [facility] HEPATITIS A 2004-05-28 00:00:00 Completed [facility] Pneumococcal 7 Conjugate, PCV7 (Prevnar7) 2004-05-28 00:00:00 Completed [facility] HEPATITIS A 2004-05-28 00:00:00 Completed [facility] Pneumococcal 7 Conjugate, PCV7 (Prevnar7) 2004-05-28 00:00:00 Completed [facility] HEPATITIS A 2004-05-28 00:00:00 Completed [facility] HEPATITIS A 2004-05-28 00:00:00 Completed [facility] Pneumococcal 7 Conjugate, PCV7 (Prevnar7) 2004-05-28 00:00:00 Completed [facility] HEPATITIS A 2004-05-28 00:00:00 Completed [facility] Pneumococcal 7 Conjugate, PCV7 (Prevnar7) 2004-05-28 00:00:00 Completed [facility] HEPATITIS A 2004-05-28 00:00:00 Completed [facility] Pneumococcal 7 Conjugate, PCV7 (Prevnar7) 2004-05-28 00:00:00 Completed [facility] HEPATITIS A 2004-05-28 00:00:00 Completed [facility] Pneumococcal 7 Conjugate, PCV7 (Prevnar7) 2004-05-28 00:00:00 Completed [facility] HEPATITIS A 2004-05-28 00:00:00 Completed [facility] Pneumococcal 7 Conjugate, PCV7 (Prevnar7) 2004-05-28 00:00:00 Completed [facility] Pneumococcal 7 Conjugate, PCV7 (Prevnar7) 2004-05-28 00:00:00 Completed [facility] HEPATITIS A 2004-05-28 00:00:00 Completed [facility] Pneumococcal 7 Conjugate, PCV7 (Prevnar7) 2004-05-28 00:00:00 Completed [facility] HEPATITIS A 2004-05-28 00:00:00 Completed [facility] Pneumococcal 7 Conjugate, PCV7 (Prevnar7) 2004-05-28 00:00:00 Completed [facility] HEPATITIS A 2004-05-28 00:00:00 Completed [facility] Pneumococcal 7 Conjugate, PCV7 (Prevnar7) 2004-05-28 00:00:00 Completed [facility] HEPATITIS A 2004-05-28 00:00:00 Completed [facility] HEPATITIS A 2004-05-28 00:00:00 Completed [facility] Pneumococcal 7 Conjugate, PCV7 (Prevnar7) 2004-05-28 00:00:00 Completed [facility] HEPATITIS A 2004-05-28 00:00:00 Completed [facility] Pneumococcal 7 Conjugate, PCV7 (Prevnar7) 2004-05-28 00:00:00 Completed [facility] HEPATITIS A 2004-05-28 00:00:00 Completed [facility] Pneumococcal 7 Conjugate, PCV7 (Prevnar7) 2004-05-28 00:00:00 Completed [facility] HEPATITIS A 2004-05-28 00:00:00 Completed [facility] Pneumococcal 7 Conjugate, PCV7 (Prevnar7) 2004-05-28 00:00:00 Completed [facility] HEPATITIS A 2004-05-28 00:00:00 Completed [facility] Pneumococcal 7 Conjugate, PCV7 (Prevnar7) 2004-05-28 00:00:00 Completed [facility] Pneumococcal 7 Conjugate, PCV7 (Prevnar7) 2004-05-28 00:00:00 Completed [facility] HEPATITIS A 2004-05-28 00:00:00 Completed [facility] Pneumococcal 7 Conjugate, PCV7 (Prevnar7) 2004-05-28 00:00:00 Completed [facility] HEPATITIS A 2004-05-28 00:00:00 Completed [facility] Pneumococcal 7 Conjugate, PCV7 (Prevnar7) 2004-05-28 00:00:00 Completed [facility] HEPATITIS A 2004-05-28 00:00:00 Completed [facility] Pneumococcal 7 Conjugate, PCV7 (Prevnar7) 2004-05-28 00:00:00 Completed [facility] HEPATITIS A 2004-05-28 00:00:00 Completed [facility] Pneumococcal 7 Conjugate, PCV7 (Prevnar7) 2004-05-28 00:00:00 Completed [facility] HEPATITIS A 2004-05-28 00:00:00 Completed [facility] HEPATITIS A 2004-05-28 00:00:00 Completed [facility] Pneumococcal 7 Conjugate, PCV7 (Prevnar7) 2004-05-28 00:00:00 Completed [facility] HEPATITIS A 2004-05-28 00:00:00 Completed [facility] Pneumococcal 7 Conjugate, PCV7 (Prevnar7) 2004-05-28 00:00:00 Completed [facility] HEPATITIS A 2004-05-28 00:00:00 Completed [facility] Pneumococcal 7 Conjugate, PCV7 (Prevnar7) 2004-05-28 00:00:00 Completed [facility] Pneumococcal 7 Conjugate, PCV7 (Prevnar7) 2004-05-28 00:00:00 Completed [facility] HEPATITIS A 2004-05-28 00:00:00 Completed [facility] Pneumococcal 7 Conjugate, PCV7 (Prevnar7) 2004-05-28 00:00:00 Completed [facility] HEPATITIS A 2004-05-28 00:00:00 Completed [facility] HEPATITIS A 2004-05-28 00:00:00 Completed [facility] Pneumococcal 7 Conjugate, PCV7 (Prevnar7) 2004-05-28 00:00:00 Completed [facility] HEPATITIS A 2004-05-28 00:00:00 Completed [facility] Pneumococcal 7 Conjugate, PCV7 (Prevnar7) 2004-05-28 00:00:00 Completed [facility] HEPATITIS A 2004-05-28 00:00:00 Completed [facility] Pneumococcal 7 Conjugate, PCV7 (Prevnar7) 2004-05-28 00:00:00 Completed [facility] HEPATITIS A 2004-05-28 00:00:00 Completed [facility] Pneumococcal 7 Conjugate, PCV7 (Prevnar7) 2004-05-28 00:00:00 Completed [facility] HEPATITIS A 2004-05-28 00:00:00 Completed [facility] Pneumococcal 7 Conjugate, PCV7 (Prevnar7) 2004-05-28 00:00:00 Completed [facility] Pneumococcal 7 Conjugate, PCV7 (Prevnar7) 2004-05-28 00:00:00 Completed [facility] HEPATITIS A 2004-05-28 00:00:00 Completed [facility] Pneumococcal 7 Conjugate, PCV7 (Prevnar7) 2004-05-28 00:00:00 Completed [facility] HEPATITIS A 2004-05-28 00:00:00 Completed [facility] Pneumococcal 7 Conjugate, PCV7 (Prevnar7) 2004-05-28 00:00:00 Completed [facility] HEPATITIS A 2004-05-28 00:00:00 Completed [facility] Pneumococcal 7 Conjugate, PCV7 (Prevnar7) 2004-05-28 00:00:00 Completed [facility] HEPATITIS A 2004-05-28 00:00:00 Completed [facility] Pneumococcal 7 Conjugate, PCV7 (Prevnar7) 2004-05-28 00:00:00 Completed [facility] HEPATITIS A 2004-05-28 00:00:00 Completed [facility] Pneumococcal 7 Conjugate, PCV7 (Prevnar7) 2004-05-28 00:00:00 Completed [facility] HEPATITIS A 2004-05-28 00:00:00 Completed [facility] Pneumococcal 7 Conjugate, PCV7 (Prevnar7) 2004-05-28 00:00:00 Completed [facility] HEPATITIS A 2004-05-28 00:00:00 Completed [facility] HEPATITIS A 2004-05-28 00:00:00 Completed [facility] Pneumococcal 7 Conjugate, PCV7 (Prevnar7) 2004-05-28 00:00:00 Completed [facility] HIB 4 Dose Schedule 2003-08-04 00:00:00 Completed [facility] DTAP 2003-08-04 00:00:00 Completed [facility] HIB 4 Dose Schedule 2003-08-04 00:00:00 Completed [facility] DTAP 2003-08-04 00:00:00 Completed [facility] HIB 4 Dose Schedule 2003-08-04 00:00:00 Completed [facility] DTAP 2003-08-04 00:00:00 Completed [facility] HIB 4 Dose Schedule 2003-08-04 00:00:00 Completed [facility] DTAP 2003-08-04 00:00:00 Completed [facility] HIB 4 Dose Schedule 2003-08-04 00:00:00 Completed [facility] DTAP 2003-08-04 00:00:00 Completed [facility] HIB 4 Dose Schedule 2003-08-04 00:00:00 Completed [facility] DTAP 2003-08-04 00:00:00 Completed [facility] HIB 4 Dose Schedule 2003-08-04 00:00:00 Completed [facility] DTAP 2003-08-04 00:00:00 Completed [facility] HIB 4 Dose Schedule 2003-08-04 00:00:00 Completed [facility] DTAP 2003-08-04 00:00:00 Completed [facility] DTAP 2003-08-04 00:00:00 Completed [facility] HIB 4 Dose Schedule 2003-08-04 00:00:00 Completed [facility] HIB 4 Dose Schedule 2003-08-04 00:00:00 Completed [facility] DTAP 2003-08-04 00:00:00 Completed [facility] [facility] HIB 4 Dose Schedule 2003-08-04 00:00:00 Completed [facility] DTAP 2003-08-04 00:00:00 Completed [facility] HIB 4 Dose Schedule 2003-08-04 00:00:00 Completed [facility] DTAP 2003-08-04 00:00:00 Completed [facility] HIB 4 Dose Schedule 2003-08-04 00:00:00 Completed [facility] DTAP 2003-08-04 00:00:00 Completed [facility] HIB 4 Dose Schedule 2003-08-04 00:00:00 Completed [facility] DTAP 2003-08-04 00:00:00 Completed [facility] HIB 4 Dose Schedule 2003-08-04 00:00:00 Completed [facility] DTAP 2003-08-04 00:00:00 Completed [facility] HIB 4 Dose Schedule 2003-08-04 00:00:00 Completed [facility] DTAP 2003-08-04 00:00:00 Completed [facility] HIB 4 Dose Schedule 2003-08-04 00:00:00 Completed [facility] DTAP 2003-08-04 00:00:00 Completed [facility] HIB 4 Dose Schedule 2003-08-04 00:00:00 Completed [facility] DTAP 2003-08-04 00:00:00 Completed [facility] HIB 4 Dose Schedule 2003-08-04 00:00:00 Completed [facility] DTAP 2003-08-04 00:00:00 Completed [facility] HIB 4 Dose Schedule 2003-08-04 00:00:00 Completed [facility] DTAP 2003-08-04 00:00:00 Completed [facility] DTAP 2003-08-04 00:00:00 Completed [facility] HIB 4 Dose Schedule 2003-08-04 00:00:00 Completed [facility] HIB 4 Dose Schedule 2003-08-04 00:00:00 Completed [facility] DTAP 2003-08-04 00:00:00 Completed [facility] HIB 4 Dose Schedule 2003-08-04 00:00:00 Completed [facility] DTAP 2003-08-04 00:00:00 Completed [facility] HIB 4 Dose Schedule 2003-08-04 00:00:00 Completed [facility] DTAP 2003-08-04 00:00:00 Completed [facility] HIB 4 Dose Schedule 2003-08-04 00:00:00 Completed [facility] DTAP 2003-08-04 00:00:00 Completed [facility] HIB 4 Dose Schedule 2003-08-04 00:00:00 Completed [facility] DTAP 2003-08-04 00:00:00 Completed [facility] HIB 4 Dose Schedule 2003-08-04 00:00:00 Completed [facility] DTAP 2003-08-04 00:00:00 Completed [facility] HIB 4 Dose Schedule 2003-08-04 00:00:00 Completed [facility] DTAP 2003-08-04 00:00:00 Completed [facility] HIB 4 Dose Schedule 2003-08-04 00:00:00 Completed [facility] DTAP 2003-08-04 00:00:00 Completed [facility] DTAP 2003-08-04 00:00:00 Completed [facility] HIB 4 Dose Schedule 2003-08-04 00:00:00 Completed [facility] HIB 4 Dose Schedule 2003-08-04 00:00:00 Completed [facility] DTAP 2003-08-04 00:00:00 Completed [facility] HIB 4 Dose Schedule 2003-08-04 00:00:00 Completed [facility] DTAP 2003-08-04 00:00:00 Completed [facility] HIB 4 Dose Schedule 2003-08-04 00:00:00 Completed [facility] DTAP 2003-08-04 00:00:00 Completed [facility] HIB 4 Dose Schedule 2003-08-04 00:00:00 Completed [facility] DTAP 2003-08-04 00:00:00 Completed [facility] HIB 4 Dose Schedule 2003-08-04 00:00:00 Completed [facility] DTAP 2003-08-04 00:00:00 Completed [facility] HIB 4 Dose Schedule 2003-08-04 00:00:00 Completed [facility] DTAP 2003-08-04 00:00:00 Completed [facility] HIB 4 Dose Schedule 2003-08-04 00:00:00 Completed [facility] DTAP 2003-08-04 00:00:00 Completed [facility] HIB 4 Dose Schedule 2003-08-04 00:00:00 Completed [facility] DTAP 2003-08-04 00:00:00 Completed [facility] HIB 4 Dose Schedule 2003-08-04 00:00:00 Completed [facility] DTAP 2003-08-04 00:00:00 Completed [facility] DTAP 2003-08-04 00:00:00 Completed [facility] HIB 4 Dose Schedule 2003-08-04 00:00:00 Completed [facility] HIB 4 Dose Schedule 2003-08-04 00:00:00 Completed [facility] DTAP 2003-08-04 00:00:00 Completed [facility] HIB 4 Dose Schedule 2003-08-04 00:00:00 Completed [facility] DTAP 2003-08-04 00:00:00 Completed [facility] HIB 4 Dose Schedule 2003-08-04 00:00:00 Completed [facility] DTAP 2003-08-04 00:00:00 Completed [facility] HIB 4 Dose Schedule 2003-08-04 00:00:00 Completed [facility] DTAP 2003-08-04 00:00:00 Completed [facility] HIB 4 Dose Schedule 2003-08-04 00:00:00 Completed [facility] DTAP 2003-08-04 00:00:00 Completed [facility] HIB 4 Dose Schedule 2003-08-04 00:00:00 Completed [facility] DTAP 2003-08-04 00:00:00 Completed [facility] HIB 4 Dose Schedule 2003-08-04 00:00:00 Completed [facility] DTAP 2003-08-04 00:00:00 Completed [facility] DTAP 2003-08-04 00:00:00 Completed [facility] HIB 4 Dose Schedule 2003-08-04 00:00:00 Completed [facility] HIB 4 Dose Schedule 2003-08-04 00:00:00 Completed [facility] DTAP 2003-08-04 00:00:00 Completed [facility] HIB 4 Dose Schedule 2003-08-04 00:00:00 Completed [facility] DTAP 2003-08-04 00:00:00 Completed [facility] HIB 4 Dose Schedule 2003-08-04 00:00:00 Completed [facility] DTAP 2003-08-04 00:00:00 Completed [facility] HIB 4 Dose Schedule 2003-08-04 00:00:00 Completed [facility] DTAP 2003-08-04 00:00:00 Completed [facility] HIB 4 Dose Schedule 2003-08-04 00:00:00 Completed [facility] DTAP 2003-08-04 00:00:00 Completed [facility] HIB 4 Dose Schedule 2003-08-04 00:00:00 Completed [facility] DTAP 2003-08-04 00:00:00 Completed [facility] HIB 4 Dose Schedule 2003-08-04 00:00:00 Completed [facility] DTAP 2003-08-04 00:00:00 Completed [facility] DTAP 2003-08-04 00:00:00 Completed [facility] HIB 4 Dose Schedule 2003-08-04 00:00:00 Completed [facility] HIB 4 Dose Schedule 2003-08-04 00:00:00 Completed [facility] DTAP 2003-08-04 00:00:00 Completed [facility] HIB 4 Dose Schedule 2003-08-04 00:00:00 Completed [facility] DTAP 2003-08-04 00:00:00 Completed [facility] HIB 4 Dose Schedule 2003-08-04 00:00:00 Completed [facility] DTAP 2003-08-04 00:00:00 Completed [facility] HIB 4 Dose Schedule 2003-08-04 00:00:00 Completed [facility] DTAP 2003-08-04 00:00:00 Completed [facility] HIB 4 Dose Schedule 2003-08-04 00:00:00 Completed [facility] DTAP 2003-08-04 00:00:00 Completed [facility] HIB 4 Dose Schedule 2003-08-04 00:00:00 Completed [facility] DTAP 2003-08-04 00:00:00 Completed [facility] HIB 4 Dose Schedule 2003-08-04 00:00:00 Completed [facility] DTAP 2003-08-04 00:00:00 Completed [facility] HIB 4 Dose Schedule 2003-08-04 00:00:00 Completed [facility] DTAP 2003-08-04 00:00:00 Completed [facility] HIB 4 Dose Schedule 2003-08-04 00:00:00 Completed [facility] DTAP 2003-08-04 00:00:00 Completed [facility] DTAP 2003-08-04 00:00:00 Completed [facility] HIB 4 Dose Schedule 2003-08-04 00:00:00 Completed [facility] HIB 4 Dose Schedule 2003-08-04 00:00:00 Completed [facility] DTAP 2003-08-04 00:00:00 Completed [facility] HIB 4 Dose Schedule 2003-08-04 00:00:00 Completed [facility] DTAP 2003-08-04 00:00:00 Completed [facility] HIB 4 Dose Schedule 2003-08-04 00:00:00 Completed [facility] DTAP 2003-08-04 00:00:00 Completed [facility] HIB 4 Dose Schedule 2003-08-04 00:00:00 Completed [facility] DTAP 2003-08-04 00:00:00 Completed [facility] HIB 4 Dose Schedule 2003-08-04 00:00:00 Completed [facility] DTAP 2003-08-04 00:00:00 Completed [facility] HIB 4 Dose Schedule 2003-08-04 00:00:00 Completed [facility] DTAP 2003-08-04 00:00:00 Completed [facility] HIB 4 Dose Schedule 2003-08-04 00:00:00 Completed [facility] DTAP 2003-08-04 00:00:00 Completed [facility] HIB 4 Dose Schedule 2003-08-04 00:00:00 Completed [facility] DTAP 2003-08-04 00:00:00 Completed [facility] DTAP 2003-08-04 00:00:00 Completed [facility] HIB 4 Dose Schedule 2003-08-04 00:00:00 Completed [facility] HIB 4 Dose Schedule 2003-08-04 00:00:00 Completed [facility] DTAP 2003-08-04 00:00:00 Completed [facility] HIB 4 Dose Schedule 2003-08-04 00:00:00 Completed [facility] DTAP 2003-08-04 00:00:00 Completed [facility] HIB 4 Dose Schedule 2003-08-04 00:00:00 Completed [facility] DTAP 2003-08-04 00:00:00 Completed [facility] HIB 4 Dose Schedule 2003-08-04 00:00:00 Completed [facility] DTAP 2003-08-04 00:00:00 Completed [facility] HIB 4 Dose Schedule 2003-08-04 00:00:00 Completed [facility] DTAP 2003-08-04 00:00:00 Completed [facility] HIB 4 Dose Schedule 2003-08-04 00:00:00 Completed [facility] DTAP 2003-08-04 00:00:00 Completed [facility] HIB 4 Dose Schedule 2003-08-04 00:00:00 Completed [facility] DTAP 2003-08-04 00:00:00 Completed [facility] HIB 4 Dose Schedule 2003-08-04 00:00:00 Completed [facility] DTAP 2003-08-04 00:00:00 Completed [facility] DTAP 2003-08-04 00:00:00 Completed [facility] HIB 4 Dose Schedule 2003-08-04 00:00:00 Completed [facility] HIB 4 Dose Schedule 2003-08-04 00:00:00 Completed [facility] DTAP 2003-08-04 00:00:00 Completed [facility] HIB 4 Dose Schedule 2003-08-04 00:00:00 Completed [facility] DTAP 2003-08-04 00:00:00 Completed [facility] HIB 4 Dose Schedule 2003-08-04 00:00:00 Completed [facility] DTAP 2003-08-04 00:00:00 Completed [facility] HIB 4 Dose Schedule 2003-08-04 00:00:00 Completed [facility] DTAP 2003-08-04 00:00:00 Completed [facility] DTAP 2003-08-04 00:00:00 Completed [facility] HIB 4 Dose Schedule 2003-08-04 00:00:00 Completed [facility] HIB 4 Dose Schedule 2003-08-04 00:00:00 Completed [facility] DTAP 2003-08-04 00:00:00 Completed [facility] HIB 4 Dose Schedule 2003-08-04 00:00:00 Completed [facility] DTAP 2003-08-04 00:00:00 Completed [facility] HIB 4 Dose Schedule 2003-08-04 00:00:00 Completed [facility] DTAP 2003-08-04 00:00:00 Completed [facility] HIB 4 Dose Schedule 2003-08-04 00:00:00 Completed [facility] DTAP 2003-08-04 00:00:00 Completed [facility] HIB 4 Dose Schedule 2003-08-04 00:00:00 Completed [facility] DTAP 2003-08-04 00:00:00 Completed [facility] HIB 4 Dose Schedule 2003-08-04 00:00:00 Completed [facility] DTAP 2003-08-04 00:00:00 Completed [facility] HIB 4 Dose Schedule 2003-08-04 00:00:00 Completed [facility] DTAP 2003-08-04 00:00:00 Completed [facility] HIB 4 Dose Schedule 2003-08-04 00:00:00 Completed [facility] DTAP 2003-08-04 00:00:00 Completed [facility] HIB 4 Dose Schedule 2003-08-04 00:00:00 Completed [facility] DTAP 2003-08-04 00:00:00 Completed [facility] HIB 4 Dose Schedule 2003-08-04 00:00:00 Completed [facility] DTAP 2003-08-04 00:00:00 Completed [facility] HIB 4 Dose Schedule 2003-08-04 00:00:00 Completed [facility] DTAP 2003-08-04 00:00:00 Completed [facility] HIB 4 Dose Schedule 2003-08-04 00:00:00 Completed [facility] DTAP 2003-08-04 00:00:00 Completed [facility] DTAP 2003-08-04 00:00:00 Completed [facility] HIB 4 Dose Schedule 2003-08-04 00:00:00 Completed [facility] HIB 4 Dose Schedule 2003-08-04 00:00:00 Completed [facility] DTAP 2003-08-04 00:00:00 Completed [facility] MMR 2003-05-05 00:00:00 Completed [facility] Polio (IPV/OPV) 2003-05-05 00:00:00 Completed [facility] Pneumococcal 7 Conjugate, PCV7 (Prevnar7) 2003-05-05 00:00:00 Completed [facility] MMR 2003-05-05 00:00:00 Completed [facility] MMR 2003-05-05 00:00:00 Completed [facility] Polio (IPV/OPV) 2003-05-05 00:00:00 Completed [facility] Pneumococcal 7 Conjugate, PCV7 (Prevnar7) 2003-05-05 00:00:00 Completed [facility] Polio (IPV/OPV) 2003-05-05 00:00:00 Completed [facility] MMR 2003-05-05 00:00:00 Completed [facility] Polio (IPV/OPV) 2003-05-05 00:00:00 Completed [facility] Pneumococcal 7 Conjugate, PCV7 (Prevnar7) 2003-05-05 00:00:00 Completed [facility] MMR 2003-05-05 00:00:00 Completed [facility] Polio (IPV/OPV) 2003-05-05 00:00:00 Completed [facility] Pneumococcal 7 Conjugate, PCV7 (Prevnar7) 2003-05-05 00:00:00 Completed [facility] Pneumococcal 7 Conjugate, PCV7 (Prevnar7) 2003-05-05 00:00:00 Completed [facility] MMR 2003-05-05 00:00:00 Completed [facility] Polio (IPV/OPV) 2003-05-05 00:00:00 Completed [facility] Pneumococcal 7 Conjugate, PCV7 (Prevnar7) 2003-05-05 00:00:00 Completed [facility] MMR 2003-05-05 00:00:00 Completed [facility] Polio (IPV/OPV) 2003-05-05 00:00:00 Completed [facility] Pneumococcal 7 Conjugate, PCV7 (Prevnar7) 2003-05-05 00:00:00 Completed [facility] MMR 2003-05-05 00:00:00 Completed [facility] Polio (IPV/OPV) 2003-05-05 00:00:00 Completed [facility] Pneumococcal 7 Conjugate, PCV7 (Prevnar7) 2003-05-05 00:00:00 Completed [facility] MMR 2003-05-05 00:00:00 Completed [facility] Polio (IPV/OPV) 2003-05-05 00:00:00 Completed [facility] Pneumococcal 7 Conjugate, PCV7 (Prevnar7) 2003-05-05 00:00:00 Completed [facility] MMR 2003-05-05 00:00:00 Completed [facility] Polio (IPV/OPV) 2003-05-05 00:00:00 Completed [facility] Pneumococcal 7 Conjugate, PCV7 (Prevnar7) 2003-05-05 00:00:00 Completed [facility] MMR 2003-05-05 00:00:00 Completed [facility] [place] Polio (IPV/OPV) 2003-05-05 00:00:00 Completed [facility] Pneumococcal 7 Conjugate, PCV7 (Prevnar7) 2003-05-05 00:00:00 Completed [facility] MMR 2003-05-05 00:00:00 Completed [facility] MMR 2003-05-05 00:00:00 Completed [facility] [place] Polio (IPV/OPV) 2003-05-05 00:00:00 Completed [facility] [place] Pneumococcal 7 Conjugate, PCV7 (Prevnar7) 2003-05-05 00:00:00 Completed [facility] MMR 2003-05-05 00:00:00 Completed [facility] [place] Polio (IPV/OPV) 2003-05-05 00:00:00 Completed [facility] [place] Polio (IPV/OPV) 2003-05-05 00:00:00 Completed [facility] [place] Pneumococcal 7 Conjugate, PCV7 (Prevnar7) 2003-05-05 00:00:00 Completed [facility] MMR 2003-05-05 00:00:00 Completed [facility] [place] Polio (IPV/OPV) 2003-05-05 00:00:00 Completed [facility] Pneumococcal 7 Conjugate, PCV7 (Prevnar7) 2003-05-05 00:00:00 Completed [facility] [place] Pneumococcal 7 Conjugate, PCV7 (Prevnar7) 2003-05-05 00:00:00 Completed [facility] MMR 2003-05-05 00:00:00 Completed [facility] [place] Polio (IPV/OPV) 2003-05-05 00:00:00 Completed [facility] Pneumococcal 7 Conjugate, PCV7 (Prevnar7) 2003-05-05 00:00:00 Completed [facility] MMR 2003-05-05 00:00:00 Completed [facility] Polio (IPV/OPV) 2003-05-05 00:00:00 Completed [facility] Pneumococcal 7 Conjugate, PCV7 (Prevnar7) 2003-05-05 00:00:00 Completed [facility] MMR 2003-05-05 00:00:00 Completed [facility] [place] Polio (IPV/OPV) 2003-05-05 00:00:00 Completed [facility] [place] Pneumococcal 7 Conjugate, PCV7 (Prevnar7) 2003-05-05 00:00:00 Completed [facility] MMR 2003-05-05 00:00:00 Completed [facility] [place] Polio (IPV/OPV) 2003-05-05 00:00:00 Completed [facility] Pneumococcal 7 Conjugate, PCV7 (Prevnar7) 2003-05-05 00:00:00 Completed [facility] MMR 2003-05-05 00:00:00 Completed [facility] Polio (IPV/OPV) 2003-05-05 00:00:00 Completed [facility] Pneumococcal 7 Conjugate, PCV7 (Prevnar7) 2003-05-05 00:00:00 Completed [facility] 2003-05-05 00:00:00 Completed [facility] Polio (IPV/OPV) 2003-05-05 00:00:00 Completed [facility] Pneumococcal 7 Conjugate, PCV7 (Prevnar7) 2003-05-05 00:00:00 Completed [facility] MMR 2003-05-05 00:00:00 Completed [facility] Polio (IPV/OPV) 2003-05-05 00:00:00 Completed [facility] Pneumococcal 7 Conjugate, PCV7 (Prevnar7) 2003-05-05 00:00:00 Completed [facility] MMR 2003-05-05 00:00:00 Completed [facility] Polio (IPV/OPV) 2003-05-05 00:00:00 Completed [facility] Pneumococcal 7 Conjugate, PCV7 (Prevnar7) 2003-05-05 00:00:00 Completed [facility] MMR 2003-05-05 00:00:00 Completed [facility] MMR 2003-05-05 00:00:00 Completed [facility] Polio (IPV/OPV) 2003-05-05 00:00:00 Completed [facility] Pneumococcal 7 Conjugate, PCV7 (Prevnar7) 2003-05-05 00:00:00 Completed [facility] [place] Polio (IPV/OPV) 2003-05-05 00:00:00 Completed [facility] MMR 2003-05-05 00:00:00 Completed [facility] [place] Polio (IPV/OPV) 2003-05-05 00:00:00 Completed [facility] Pneumococcal 7 Conjugate, PCV7 (Prevnar7) 2003-05-05 00:00:00 Completed [facility] MMR 2003-05-05 00:00:00 Completed [facility] Polio (IPV/OPV) 2003-05-05 00:00:00 Completed [facility] Pneumococcal 7 Conjugate, PCV7 (Prevnar7) 2003-05-05 00:00:00 Completed [facility] Pneumococcal 7 Conjugate, PCV7 (Prevnar7) 2003-05-05 00:00:00 Completed [facility] MMR 2003-05-05 00:00:00 Completed [facility] Polio (IPV/OPV) 2003-05-05 00:00:00 Completed [facility] Pneumococcal 7 Conjugate, PCV7 (Prevnar7) 2003-05-05 00:00:00 Completed [facility] 2003-05-05 00:00:00 Completed [facility] [place] Polio (IPV/OPV) 2003-05-05 00:00:00 Completed [facility] Pneumococcal 7 Conjugate, PCV7 (Prevnar7) 2003-05-05 00:00:00 Completed [facility] MMR 2003-05-05 00:00:00 Completed [facility] Polio (IPV/OPV) 2003-05-05 00:00:00 Completed [facility] Pneumococcal 7 Conjugate, PCV7 (Prevnar7) 2003-05-05 00:00:00 Completed [facility] MMR 2003-05-05 00:00:00 Completed [facility] Polio (IPV/OPV) 2003-05-05 00:00:00 Completed [facility] Pneumococcal 7 Conjugate, PCV7 (Prevnar7) 2003-05-05 00:00:00 Completed [facility] MMR 2003-05-05 00:00:00 Completed [facility] Polio (IPV/OPV) 2003-05-05 00:00:00 Completed [facility] Pneumococcal 7 Conjugate, PCV7 (Prevnar7) 2003-05-05 00:00:00 Completed [facility] MMR 2003-05-05 00:00:00 Completed [facility] MMR 2003-05-05 00:00:00 Completed [facility] Polio (IPV/OPV) 2003-05-05 00:00:00 Completed [facility] Pneumococcal 7 Conjugate, PCV7 (Prevnar7) 2003-05-05 00:00:00 Completed [facility] Polio (IPV/OPV) 2003-05-05 00:00:00 Completed [facility] MMR 2003-05-05 00:00:00 Completed [facility] Polio (IPV/OPV) 2003-05-05 00:00:00 Completed [facility] Pneumococcal 7 Conjugate, PCV7 (Prevnar7) 2003-05-05 00:00:00 Completed [facility] MMR 2003-05-05 00:00:00 Completed [facility] Polio (IPV/OPV) 2003-05-05 00:00:00 Completed [facility] Pneumococcal 7 Conjugate, PCV7 (Prevnar7) 2003-05-05 00:00:00 Completed [facility] Pneumococcal 7 Conjugate, PCV7 (Prevnar7) 2003-05-05 00:00:00 Completed [facility] MMR 2003-05-05 00:00:00 Completed [facility] Polio (IPV/OPV) 2003-05-05 00:00:00 Completed [facility] Pneumococcal 7 Conjugate, PCV7 (Prevnar7) 2003-05-05 00:00:00 Completed [facility] MMR 2003-05-05 00:00:00 Completed [facility] Polio (IPV/OPV) 2003-05-05 00:00:00 Completed [facility] Pneumococcal 7 Conjugate, PCV7 (Prevnar7) 2003-05-05 00:00:00 Completed [facility] MMR 2003-05-05 00:00:00 Completed [facility] Polio (IPV/OPV) 2003-05-05 00:00:00 Completed [facility] Pneumococcal 7 Conjugate, PCV7 (Prevnar7) 2003-05-05 00:00:00 Completed [facility] MMR 2003-05-05 00:00:00 Completed [facility] Polio (IPV/OPV) 2003-05-05 00:00:00 Completed [facility] Pneumococcal 7 Conjugate, PCV7 (Prevnar7) 2003-05-05 00:00:00 Completed [facility] MMR 2003-05-05 00:00:00 Completed [facility] Polio (IPV/OPV) 2003-05-05 00:00:00 Completed [facility] Pneumococcal 7 Conjugate, PCV7 (Prevnar7) 2003-05-05 00:00:00 Completed [facility] MMR 2003-05-05 00:00:00 Completed [facility] Polio (IPV/OPV) 2003-05-05 00:00:00 Completed [facility] Pneumococcal 7 Conjugate, PCV7 (Prevnar7) 2003-05-05 00:00:00 Completed [facility] MMR 2003-05-05 00:00:00 Completed [facility] Polio (IPV/OPV) 2003-05-05 00:00:00 Completed [facility] MMR 2003-05-05 00:00:00 Completed [facility] Pneumococcal 7 Conjugate, PCV7 (Prevnar7) 2003-05-05 00:00:00 Completed [facility] MMR 2003-05-05 00:00:00 Completed [facility] Polio (IPV/OPV) 2003-05-05 00:00:00 Completed [facility] Pneumococcal 7 Conjugate, PCV7 (Prevnar7) 2003-05-05 00:00:00 Completed [facility] Polio (IPV/OPV) 2003-05-05 00:00:00 Completed [facility] MMR 2003-05-05 00:00:00 Completed [facility] Polio (IPV/OPV) 2003-05-05 00:00:00 Completed [facility] Pneumococcal 7 Conjugate, PCV7 (Prevnar7) 2003-05-05 00:00:00 Completed [facility] Pneumococcal 7 Conjugate, PCV7 (Prevnar7) 2003-05-05 00:00:00 Completed [facility] MMR 2003-05-05 00:00:00 Completed [facility] Polio (IPV/OPV) 2003-05-05 00:00:00 Completed [facility] Pneumococcal 7 Conjugate, PCV7 (Prevnar7) 2003-05-05 00:00:00 Completed [facility] 2003-05-05 00:00:00 Completed [facility] Polio (IPV/OPV) 2003-05-05 00:00:00 Completed [facility] Pneumococcal 7 Conjugate, PCV7 (Prevnar7) 2003-05-05 00:00:00 Completed [facility] 2003-05-05 00:00:00 Completed [facility] Polio (IPV/OPV) 2003-05-05 00:00:00 Completed [facility] Pneumococcal 7 Conjugate, PCV7 (Prevnar7) 2003-05-05 00:00:00 Completed [facility] 2003-05-05 00:00:00 Completed [facility] Polio (IPV/OPV) 2003-05-05 00:00:00 Completed [facility] Pneumococcal 7 Conjugate, PCV7 (Prevnar7) 2003-05-05 00:00:00 Completed [facility] 2003-05-05 00:00:00 Completed [facility] 2003-05-05 00:00:00 Completed [facility] Polio (IPV/OPV) 2003-05-05 00:00:00 Completed [facility] Polio (IPV/OPV) 2003-05-05 00:00:00 Completed [facility] Pneumococcal 7 Conjugate, PCV7 (Prevnar7) 2003-05-05 00:00:00 Completed [facility] 2003-05-05 00:00:00 Completed [facility] Polio (IPV/OPV) 2003-05-05 00:00:00 Completed [facility] Pneumococcal 7 Conjugate, PCV7 (Prevnar7) 2003-05-05 00:00:00 Completed [facility] Pneumococcal 7 Conjugate, PCV7 (Prevnar7) 2003-05-05 00:00:00 Completed [facility] MMR 2003-05-05 00:00:00 Completed [facility] Polio (IPV/OPV) 2003-05-05 00:00:00 Completed [facility] Pneumococcal 7 Conjugate, PCV7 (Prevnar7) 2003-05-05 00:00:00 Completed [facility] MMR 2003-05-05 00:00:00 Completed [facility] Polio (IPV/OPV) 2003-05-05 00:00:00 Completed [facility] Pneumococcal 7 Conjugate, PCV7 (Prevnar7) 2003-05-05 00:00:00 Completed [facility] 2003-05-05 00:00:00 Completed [facility] Polio (IPV/OPV) 2003-05-05 00:00:00 Completed [facility] Pneumococcal 7 Conjugate, PCV7 (Prevnar7) 2003-05-05 00:00:00 Completed [facility] 2003-05-05 00:00:00 Completed [facility] Polio (IPV/OPV) 2003-05-05 00:00:00 Completed [facility] Pneumococcal 7 Conjugate, PCV7 (Prevnar7) 2003-05-05 00:00:00 Completed [facility] 2003-05-05 00:00:00 Completed [facility] Polio (IPV/OPV) 2003-05-05 00:00:00 Completed [facility] Pneumococcal 7 Conjugate, PCV7 (Prevnar7) 2003-05-05 00:00:00 Completed [facility] 2003-05-05 00:00:00 Completed [facility] 2003-05-05 00:00:00 Completed [facility] Polio (IPV/OPV) 2003-05-05 00:00:00 Completed [facility] Pneumococcal 7 Conjugate, PCV7 (Prevnar7) 2003-05-05 00:00:00 Completed [facility] Polio (IPV/OPV) 2003-05-05 00:00:00 Completed [facility] MMR 2003-05-05 00:00:00 Completed [facility] Polio (IPV/OPV) 2003-05-05 00:00:00 Completed [facility] Pneumococcal 7 Conjugate, PCV7 (Prevnar7) 2003-05-05 00:00:00 Completed [facility] 2003-05-05 00:00:00 Completed [facility] Polio (IPV/OPV) 2003-05-05 00:00:00 Completed [facility] Pneumococcal 7 Conjugate, PCV7 (Prevnar7) 2003-05-05 00:00:00 Completed [facility] Pneumococcal 7 Conjugate, PCV7 (Prevnar7) 2003-05-05 00:00:00 Completed [facility] 2003-05-05 00:00:00 Completed [facility] Polio (IPV/OPV) 2003-05-05 00:00:00 Completed [facility] Pneumococcal 7 Conjugate, PCV7 (Prevnar7) 2003-05-05 00:00:00 Completed [facility] 2003-05-05 00:00:00 Completed [facility] Polio (IPV/OPV) 2003-05-05 00:00:00 Completed [facility] Pneumococcal 7 Conjugate, PCV7 (Prevnar7) 2003-05-05 00:00:00 Completed [facility] 2003-05-05 00:00:00 Completed [facility] Polio (IPV/OPV) 2003-05-05 00:00:00 Completed [facility] Pneumococcal 7 Conjugate, PCV7 (Prevnar7) 2003-05-05 00:00:00 Completed [facility] 2003-05-05 00:00:00 Completed [facility] Polio (IPV/OPV) 2003-05-05 00:00:00 Completed [facility] Pneumococcal 7 Conjugate, PCV7 (Prevnar7) 2003-05-05 00:00:00 Completed [facility] MMR 2003-05-05 00:00:00 Completed [facility] Polio (IPV/OPV) 2003-05-05 00:00:00 Completed [facility] Pneumococcal 7 Conjugate, PCV7 (Prevnar7) 2003-05-05 00:00:00 Completed [facility] MMR 2003-05-05 00:00:00 Completed [facility] Polio (IPV/OPV) 2003-05-05 00:00:00 Completed [facility] Pneumococcal 7 Conjugate, PCV7 (Prevnar7) 2003-05-05 00:00:00 Completed [facility] 2003-05-05 00:00:00 Completed [facility] MMR 2003-05-05 00:00:00 Completed [facility] Polio (IPV/OPV) 2003-05-05 00:00:00 Completed [facility] Pneumococcal 7 Conjugate, PCV7 (Prevnar7) 2003-05-05 00:00:00 Completed [facility] Polio (IPV/OPV) 2003-05-05 00:00:00 Completed [facility] MMR 2003-05-05 00:00:00 Completed [facility] Polio (IPV/OPV) 2003-05-05 00:00:00 Completed [facility] Pneumococcal 7 Conjugate, PCV7 (Prevnar7) 2003-05-05 00:00:00 Completed [facility] Pneumococcal 7 Conjugate, PCV7 (Prevnar7) 2003-05-05 00:00:00 Completed [facility] MMR 2003-05-05 00:00:00 Completed [facility] Polio (IPV/OPV) 2003-05-05 00:00:00 Completed [facility] Pneumococcal 7 Conjugate, PCV7 (Prevnar7) 2003-05-05 00:00:00 Completed [facility] MMR 2003-05-05 00:00:00 Completed [facility] Polio (IPV/OPV) 2003-05-05 00:00:00 Completed [facility] Pneumococcal 7 Conjugate, PCV7 (Prevnar7) 2003-05-05 00:00:00 Completed [facility] MMR 2003-05-05 00:00:00 Completed [facility] Polio (IPV/OPV) 2003-05-05 00:00:00 Completed [facility] Pneumococcal 7 Conjugate, PCV7 (Prevnar7) 2003-05-05 00:00:00 Completed [facility] MMR 2003-05-05 00:00:00 Completed [facility] Polio (IPV/OPV) 2003-05-05 00:00:00 Completed [facility] Pneumococcal 7 Conjugate, PCV7 (Prevnar7) 2003-05-05 00:00:00 Completed [facility] MMR 2003-05-05 00:00:00 Completed [facility] Polio (IPV/OPV) 2003-05-05 00:00:00 Completed [facility] Pneumococcal 7 Conjugate, PCV7 (Prevnar7) 2003-05-05 00:00:00 Completed [facility] MMR 2003-05-05 00:00:00 Completed [facility] Polio (IPV/OPV) 2003-05-05 00:00:00 Completed [facility] Pneumococcal 7 Conjugate, PCV7 (Prevnar7) 2003-05-05 00:00:00 Completed [facility] MMR 2003-05-05 00:00:00 Completed [facility] MMR 2003-05-05 00:00:00 Completed [facility] Polio (IPV/OPV) 2003-05-05 00:00:00 Completed [facility] Pneumococcal 7 Conjugate, PCV7 (Prevnar7) 2003-05-05 00:00:00 Completed [facility] Polio (IPV/OPV) 2003-05-05 00:00:00 Completed [facility] MMR 2003-05-05 00:00:00 Completed [facility] Polio (IPV/OPV) 2003-05-05 00:00:00 Completed [facility] Pneumococcal 7 Conjugate, PCV7 (Prevnar7) 2003-05-05 00:00:00 Completed [facility] Pneumococcal 7 Conjugate, PCV7 (Prevnar7) 2003-05-05 00:00:00 Completed [facility] MMR 2003-05-05 00:00:00 Completed [facility] Polio (IPV/OPV) 2003-05-05 00:00:00 Completed [facility] Pneumococcal 7 Conjugate, PCV7 (Prevnar7) 2003-05-05 00:00:00 Completed [facility] MMR 2003-05-05 00:00:00 Completed [facility] Polio (IPV/OPV) 2003-05-05 00:00:00 Completed [facility] Pneumococcal 7 Conjugate, PCV7 (Prevnar7) 2003-05-05 00:00:00 Completed [facility] MMR 2003-05-05 00:00:00 Completed [facility] Polio (IPV/OPV) 2003-05-05 00:00:00 Completed [facility] Pneumococcal 7 Conjugate, PCV7 (Prevnar7) 2003-05-05 00:00:00 Completed [facility] 2003-05-05 00:00:00 Completed [facility] Polio (IPV/OPV) 2003-05-05 00:00:00 Completed [facility] Pneumococcal 7 Conjugate, PCV7 (Prevnar7) 2003-05-05 00:00:00 Completed [facility] 2003-05-05 00:00:00 Completed [facility] Polio (IPV/OPV) 2003-05-05 00:00:00 Completed [facility] Pneumococcal 7 Conjugate, PCV7 (Prevnar7) 2003-05-05 00:00:00 Completed [facility] 2003-05-05 00:00:00 Completed [facility] Polio (IPV/OPV) 2003-05-05 00:00:00 Completed [facility] Pneumococcal 7 Conjugate, PCV7 (Prevnar7) 2003-05-05 00:00:00 Completed [facility] 2003-05-05 00:00:00 Completed [facility] 2003-05-05 00:00:00 Completed [facility] Polio (IPV/OPV) 2003-05-05 00:00:00 Completed [facility] Pneumococcal 7 Conjugate, PCV7 (Prevnar7) 2003-05-05 00:00:00 Completed [facility] 2003-05-05 00:00:00 Completed [facility] Polio (IPV/OPV) 2003-05-05 00:00:00 Completed [facility] Polio (IPV/OPV) 2003-05-05 00:00:00 Completed [facility] Pneumococcal 7 Conjugate, PCV7 (Prevnar7) 2003-05-05 00:00:00 Completed [facility] Pneumococcal 7 Conjugate, PCV7 (Prevnar7) 2003-05-05 00:00:00 Completed [facility] MMR 2003-05-05 00:00:00 Completed [facility] Polio (IPV/OPV) 2003-05-05 00:00:00 Completed [facility] Pneumococcal 7 Conjugate, PCV7 (Prevnar7) 2003-05-05 00:00:00 Completed [facility] 2003-05-05 00:00:00 Completed [facility] Polio (IPV/OPV) 2003-05-05 00:00:00 Completed [facility] Pneumococcal 7 Conjugate, PCV7 (Prevnar7) 2003-05-05 00:00:00 Completed [facility] 2003-05-05 00:00:00 Completed [facility] Polio (IPV/OPV) 2003-05-05 00:00:00 Completed [facility] Pneumococcal 7 Conjugate, PCV7 (Prevnar7) 2003-05-05 00:00:00 Completed [facility] 2003-05-05 00:00:00 Completed [facility] 2003-05-05 00:00:00 Completed [facility] Polio (IPV/OPV) 2003-05-05 00:00:00 Completed [facility] Pneumococcal 7 Conjugate, PCV7 (Prevnar7) 2003-05-05 00:00:00 Completed [facility] Polio (IPV/OPV) 2003-05-05 00:00:00 Completed [facility] 2003-05-05 00:00:00 Completed [facility] Polio (IPV/OPV) 2003-05-05 00:00:00 Completed [facility] Pneumococcal 7 Conjugate, PCV7 (Prevnar7) 2003-05-05 00:00:00 Completed [facility] 2003-05-05 00:00:00 Completed [facility] Pneumococcal 7 Conjugate, PCV7 (Prevnar7) 2003-05-05 00:00:00 Completed [facility] Polio (IPV/OPV) 2003-05-05 00:00:00 Completed [facility] Pneumococcal 7 Conjugate, PCV7 (Prevnar7) 2003-05-05 00:00:00 Completed [facility] 2003-05-05 00:00:00 Completed [facility] Polio (IPV/OPV) 2003-05-05 00:00:00 Completed [facility] Pneumococcal 7 Conjugate, PCV7 (Prevnar7) 2003-05-05 00:00:00 Completed [facility] 2003-05-05 00:00:00 Completed [facility] Polio (IPV/OPV) 2003-05-05 00:00:00 Completed [facility] Pneumococcal 7 Conjugate, PCV7 (Prevnar7) 2003-05-05 00:00:00 Completed [facility] MMR 2003-05-05 00:00:00 Completed [facility] Polio (IPV/OPV) 2003-05-05 00:00:00 Completed [facility] Pneumococcal 7 Conjugate, PCV7 (Prevnar7) 2003-05-05 00:00:00 Completed [facility] MMR 2003-05-05 00:00:00 Completed [facility] Polio (IPV/OPV) 2003-05-05 00:00:00 Completed [facility] Pneumococcal 7 Conjugate, PCV7 (Prevnar7) 2003-05-05 00:00:00 Completed [facility] MMR 2003-05-05 00:00:00 Completed [facility] Polio (IPV/OPV) 2003-05-05 00:00:00 Completed [facility] Pneumococcal 7 Conjugate, PCV7 (Prevnar7) 2003-05-05 00:00:00 Completed [facility] MMR 2003-05-05 00:00:00 Completed [facility] Polio (IPV/OPV) 2003-05-05 00:00:00 Completed [facility] Pneumococcal 7 Conjugate, PCV7 (Prevnar7) 2003-05-05 00:00:00 Completed [facility] MMR 2003-05-05 00:00:00 Completed [facility] Polio (IPV/OPV) 2003-05-05 00:00:00 Completed [facility] Pneumococcal 7 Conjugate, PCV7 (Prevnar7) 2003-05-05 00:00:00 Completed [facility] HIB 4 Dose Schedule 2002 00:00:00 Completed [facility] Hep B, Adol or Pedi Dosage 2002 00:00:00 Completed [facility] Hep B, Adol or Pedi Dosage 2002 00:00:00 Completed [facility] DTAP 2002 00:00:00 Completed [facility] HIB 4 Dose Schedule 2002 00:00:00 Completed [facility] Hep B, Adol or Pedi Dosage 2002 00:00:00 Completed [facility] DTAP 2002 00:00:00 Completed [facility] HIB 4 Dose Schedule 2002 00:00:00 Completed [facility] Hep B, Adol or Pedi Dosage 2002 00:00:00 Completed [facility] DTAP 2002 00:00:00 Completed [facility] HIB 4 Dose Schedule 2002 00:00:00 Completed [facility] Hep B, Adol or Pedi Dosage 2002 00:00:00 Completed [facility] DTAP 2002 00:00:00 Completed [facility] HIB 4 Dose Schedule 2002 00:00:00 Completed [facility] Hep B, Adol or Pedi Dosage 2002 00:00:00 Completed [facility] DTAP 2002 00:00:00 Completed [facility] HIB 4 Dose Schedule 2002 00:00:00 Completed [facility] Hep B, Adol or Pedi Dosage 2002 00:00:00 Completed [facility] DTAP 2002 00:00:00 Completed [facility] HIB 4 Dose Schedule 2002 00:00:00 Completed [facility] Hep B, Adol or Pedi Dosage 2002 00:00:00 Completed [facility] DTAP 2002 00:00:00 Completed [facility] HIB 4 Dose Schedule 2002 00:00:00 Completed [facility] Hep B, Adol or Pedi Dosage 2002 00:00:00 Completed [facility] DTAP 2002 00:00:00 Completed [facility] DTAP 2002 00:00:00 Completed [facility] HIB 4 Dose Schedule 2002 00:00:00 Completed [facility] Hep B, Adol or Pedi Dosage 2002 00:00:00 Completed [facility] HIB 4 Dose Schedule 2002 00:00:00 Completed [facility] DTAP 2002 00:00:00 Completed [facility] HIB 4 Dose Schedule 2002 00:00:00 Completed [facility] Hep B, Adol or Pedi Dosage 2002 00:00:00 Completed [facility] Hep B, Adol or Pedi Dosage 2002 00:00:00 Completed [facility] DTAP 2002 00:00:00 Completed [facility] HIB 4 Dose Schedule 2002 00:00:00 Completed [facility] Hep B, Adol or Pedi Dosage 2002 00:00:00 Completed [facility] DTAP 2002 00:00:00 Completed [facility] HIB 4 Dose Schedule 2002 00:00:00 Completed [facility] Hep B, Adol or Pedi Dosage 2002 00:00:00 Completed [facility] DTAP 2002 00:00:00 Completed [facility] HIB 4 Dose Schedule 2002 00:00:00 Completed [facility] Hep B, Adol or Pedi Dosage 2002 00:00:00 Completed [facility] DTAP 2002 00:00:00 Completed [facility] HIB 4 Dose Schedule 2002 00:00:00 Completed [facility] Hep B, Adol or Pedi Dosage 2002 00:00:00 Completed [facility] DTAP 2002 00:00:00 Completed [facility] HIB 4 Dose Schedule 2002 00:00:00 Completed [facility] Hep B, Adol or Pedi Dosage 2002 00:00:00 Completed [facility] DTAP 2002 00:00:00 Completed [facility] HIB 4 Dose Schedule 2002 00:00:00 Completed [facility] Hep B, Adol or Pedi Dosage 2002 00:00:00 Completed [facility] DTAP 2002 00:00:00 Completed [facility] HIB 4 Dose Schedule 2002 00:00:00 Completed [facility] Hep B, Adol or Pedi Dosage 2002 00:00:00 Completed [facility] DTAP 2002 00:00:00 Completed [facility] HIB 4 Dose Schedule 2002 00:00:00 Completed [facility] Hep B, Adol or Pedi Dosage 2002 00:00:00 Completed [facility] DTAP 2002 00:00:00 Completed [facility] DTAP 2002 00:00:00 Completed [facility] HIB 4 Dose Schedule 2002 00:00:00 Completed [facility] Hep B, Adol or Pedi Dosage 2002 00:00:00 Completed [facility] DTAP 2002 00:00:00 Completed [facility] HIB 4 Dose Schedule 2002 00:00:00 Completed [facility] HIB 4 Dose Schedule 2002 00:00:00 Completed [facility] Hep B, Adol or Pedi Dosage 2002 00:00:00 Completed [facility] DTAP 2002 00:00:00 Completed [facility] HIB 4 Dose Schedule 2002 00:00:00 Completed [facility] Hep B, Adol or Pedi Dosage 2002 00:00:00 Completed [facility] Hep B, Adol or Pedi Dosage 2002 00:00:00 Completed [facility] DTAP 2002 00:00:00 Completed [facility] HIB 4 Dose Schedule 2002 00:00:00 Completed [facility] Hep B, Adol or Pedi Dosage 2002 00:00:00 Completed [facility] DTAP 2002 00:00:00 Completed [facility] HIB 4 Dose Schedule 2002 00:00:00 Completed [facility] Hep B, Adol or Pedi Dosage 2002 00:00:00 Completed [facility] DTAP 2002 00:00:00 Completed [facility] HIB 4 Dose Schedule 2002 00:00:00 Completed [facility] Hep B, Adol or Pedi Dosage 2002 00:00:00 Completed [facility] DTAP 2002 00:00:00 Completed [facility] HIB 4 Dose Schedule 2002 00:00:00 Completed [facility] Hep B, Adol or Pedi Dosage 2002 00:00:00 Completed [facility] DTAP 2002 00:00:00 Completed [facility] HIB 4 Dose Schedule 2002 00:00:00 Completed [facility] Hep B, Adol or Pedi Dosage 2002 00:00:00 Completed [facility] DTAP 2002 00:00:00 Completed [facility] HIB 4 Dose Schedule 2002 00:00:00 Completed [facility] Hep B, Adol or Pedi Dosage 2002 00:00:00 Completed [facility] DTAP 2002 00:00:00 Completed [facility] DTAP 2002 00:00:00 Completed [facility] HIB 4 Dose Schedule 2002 00:00:00 Completed [facility] Hep B, Adol or Pedi Dosage 2002 00:00:00 Completed [facility] HIB 4 Dose Schedule 2002 00:00:00 Completed [facility] DTAP 2002 00:00:00 Completed [facility] HIB 4 Dose Schedule 2002 00:00:00 Completed [facility] Hep B, Adol or Pedi Dosage 2002 00:00:00 Completed [facility] Hep B, Adol or Pedi Dosage 2002 00:00:00 Completed [facility] DTAP 2002 00:00:00 Completed [facility] HIB 4 Dose Schedule 2002 00:00:00 Completed [facility] Hep B, Adol or Pedi Dosage 2002 00:00:00 Completed [facility] DTAP 2002 00:00:00 Completed [facility] HIB 4 Dose Schedule 2002 00:00:00 Completed [facility] Hep B, Adol or Pedi Dosage 2002 00:00:00 Completed [facility] DTAP 2002 00:00:00 Completed [facility] HIB 4 Dose Schedule 2002 00:00:00 Completed [facility] Hep B, Adol or Pedi Dosage 2002 00:00:00 Completed [facility] DTAP 2002 00:00:00 Completed [facility] HIB 4 Dose Schedule 2002 00:00:00 Completed [facility] Hep B, Adol or Pedi Dosage 2002 00:00:00 Completed [facility] DTAP 2002 00:00:00 Completed [facility] HIB 4 Dose Schedule 2002 00:00:00 Completed [facility] Hep B, Adol or Pedi Dosage 2002 00:00:00 Completed [facility] DTAP 2002 00:00:00 Completed [facility] HIB 4 Dose Schedule 2002 00:00:00 Completed [facility] Hep B, Adol or Pedi Dosage 2002 00:00:00 Completed [facility] DTAP 2002 00:00:00 Completed [facility] HIB 4 Dose Schedule 2002 00:00:00 Completed [facility] Hep B, Adol or Pedi Dosage 2002 00:00:00 Completed [facility] DTAP 2002 00:00:00 Completed [facility] DTAP 2002 00:00:00 Completed [facility] HIB 4 Dose Schedule 2002 00:00:00 Completed [facility] Hep B, Adol or Pedi Dosage 2002 00:00:00 Completed [facility] HIB 4 Dose Schedule 2002 00:00:00 Completed [facility] DTAP 2002 00:00:00 Completed [facility] HIB 4 Dose Schedule 2002 00:00:00 Completed [facility] Hep B, Adol or Pedi Dosage 2002 00:00:00 Completed [facility] DTAP 2002 00:00:00 Completed [facility] Hep B, Adol or Pedi Dosage 2002 00:00:00 Completed [facility] HIB 4 Dose Schedule 2002 00:00:00 Completed [facility] Hep B, Adol or Pedi Dosage 2002 00:00:00 Completed [facility] DTAP 2002 00:00:00 Completed [facility] HIB 4 Dose Schedule 2002 00:00:00 Completed [facility] Hep B, Adol or Pedi Dosage 2002 00:00:00 Completed [facility] DTAP 2002 00:00:00 Completed [facility] HIB 4 Dose Schedule 2002 00:00:00 Completed [facility] Hep B, Adol or Pedi Dosage 2002 00:00:00 Completed [facility] DTAP 2002 00:00:00 Completed [facility] HIB 4 Dose Schedule 2002 00:00:00 Completed [facility] Hep B, Adol or Pedi Dosage 2002 00:00:00 Completed [facility] DTAP 2002 00:00:00 Completed [facility] HIB 4 Dose Schedule 2002 00:00:00 Completed [facility] DTAP 2002 00:00:00 Completed [facility] Hep B, Adol or Pedi Dosage 2002 00:00:00 Completed [facility] HIB 4 Dose Schedule 2002 00:00:00 Completed [facility] DTAP 2002 00:00:00 Completed [facility] HIB 4 Dose Schedule 2002 00:00:00 Completed [facility] Hep B, Adol or Pedi Dosage 2002 00:00:00 Completed [facility] DTAP 2002 00:00:00 Completed [facility] Hep B, Adol or Pedi Dosage 2002 00:00:00 Completed [facility] HIB 4 Dose Schedule 2002 00:00:00 Completed [facility] Hep B, Adol or Pedi Dosage 2002 00:00:00 Completed [facility] DTAP 2002 00:00:00 Completed [facility] HIB 4 Dose Schedule 2002 00:00:00 Completed [facility] Hep B, Adol or Pedi Dosage 2002 00:00:00 Completed [facility] DTAP 2002 00:00:00 Completed [facility] HIB 4 Dose Schedule 2002 00:00:00 Completed [facility] Hep B, Adol or Pedi Dosage 2002 00:00:00 Completed [facility] DTAP 2002 00:00:00 Completed [facility] HIB 4 Dose Schedule 2002 00:00:00 Completed [facility] Hep B, Adol or Pedi Dosage 2002 00:00:00 Completed [facility] DTAP 2002 00:00:00 Completed [facility] HIB 4 Dose Schedule 2002 00:00:00 Completed [facility] Hep B, Adol or Pedi Dosage 2002 00:00:00 Completed [facility] DTAP 2002 00:00:00 Completed [facility] HIB 4 Dose Schedule 2002 00:00:00 Completed [facility] Hep B, Adol or Pedi Dosage 2002 00:00:00 Completed [facility] DTAP 2002 00:00:00 Completed [facility] DTAP 2002 00:00:00 Completed [facility] HIB 4 Dose Schedule 2002 00:00:00 Completed [facility] Hep B, Adol or Pedi Dosage 2002 00:00:00 Completed [facility] HIB 4 Dose Schedule 2002 00:00:00 Completed [facility] DTAP 2002 00:00:00 Completed [facility] HIB 4 Dose Schedule 2002 00:00:00 Completed [facility] Hep B, Adol or Pedi Dosage 2002 00:00:00 Completed [facility] Hep B, Adol or Pedi Dosage 2002 00:00:00 Completed [facility] DTAP 2002 00:00:00 Completed [facility] HIB 4 Dose Schedule 2002 00:00:00 Completed [facility] Hep B, Adol or Pedi Dosage 2002 00:00:00 Completed [facility] DTAP 2002 00:00:00 Completed [facility] HIB 4 Dose Schedule 2002 00:00:00 Completed [facility] Hep B, Adol or Pedi Dosage 2002 00:00:00 Completed [facility] DTAP 2002 00:00:00 Completed [facility] HIB 4 Dose Schedule 2002 00:00:00 Completed [facility] Hep B, Adol or Pedi Dosage 2002 00:00:00 Completed [facility] DTAP 2002 00:00:00 Completed [facility] HIB 4 Dose Schedule 2002 00:00:00 Completed [facility] Hep B, Adol or Pedi Dosage 2002 00:00:00 Completed [facility] DTAP 2002 00:00:00 Completed [facility] HIB 4 Dose Schedule 2002 00:00:00 Completed [facility] Hep B, Adol or Pedi Dosage 2002 00:00:00 Completed [facility] DTAP 2002 00:00:00 Completed [facility] HIB 4 Dose Schedule 2002 00:00:00 Completed [facility] Hep B, Adol or Pedi Dosage 2002 00:00:00 Completed [facility] DTAP 2002 00:00:00 Completed [facility] DTAP 2002 00:00:00 Completed [facility] HIB 4 Dose Schedule 2002 00:00:00 Completed [facility] Hep B, Adol or Pedi Dosage 2002 00:00:00 Completed [facility] HIB 4 Dose Schedule 2002 00:00:00 Completed [facility] DTAP 2002 00:00:00 Completed [facility] HIB 4 Dose Schedule 2002 00:00:00 Completed [facility] Hep B, Adol or Pedi Dosage 2002 00:00:00 Completed [facility] DTAP 2002 00:00:00 Completed [facility] HIB 4 Dose Schedule 2002 00:00:00 Completed [facility] Hep B, Adol or Pedi Dosage 2002 00:00:00 Completed [facility] Hep B, Adol or Pedi Dosage 2002 00:00:00 Completed [facility] DTAP 2002 00:00:00 Completed [facility] HIB 4 Dose Schedule 2002 00:00:00 Completed [facility] Hep B, Adol or Pedi Dosage 2002 00:00:00 Completed [facility] DTAP 2002 00:00:00 Completed [facility] HIB 4 Dose Schedule 2002 00:00:00 Completed [facility] Hep B, Adol or Pedi Dosage 2002 00:00:00 Completed [facility] DTAP 2002 00:00:00 Completed [facility] HIB 4 Dose Schedule 2002 00:00:00 Completed [facility] Hep B, Adol or Pedi Dosage 2002 00:00:00 Completed [facility] DTAP 2002 00:00:00 Completed [facility] HIB 4 Dose Schedule 2002 00:00:00 Completed [facility] Hep B, Adol or Pedi Dosage 2002 00:00:00 Completed [facility] DTAP 2002 00:00:00 Completed [facility] HIB 4 Dose Schedule 2002 00:00:00 Completed [facility] Hep B, Adol or Pedi Dosage 2002 00:00:00 Completed [facility] DTAP 2002 00:00:00 Completed [facility] DTAP 2002 00:00:00 Completed [facility] HIB 4 Dose Schedule 2002 00:00:00 Completed [facility] Hep B, Adol or Pedi Dosage 2002 00:00:00 Completed [facility] HIB 4 Dose Schedule 2002 00:00:00 Completed [facility] DTAP 2002 00:00:00 Completed [facility] HIB 4 Dose Schedule 2002 00:00:00 Completed [facility] Hep B, Adol or Pedi Dosage 2002 00:00:00 Completed [facility] DTAP 2002 00:00:00 Completed [facility] HIB 4 Dose Schedule 2002 00:00:00 Completed [facility] Hep B, Adol or Pedi Dosage 2002 00:00:00 Completed [facility] Hep B, Adol or Pedi Dosage 2002 00:00:00 Completed [facility] DTAP 2002 00:00:00 Completed [facility] HIB 4 Dose Schedule 2002 00:00:00 Completed [facility] Hep B, Adol or Pedi Dosage 2002 00:00:00 Completed [facility] DTAP 2002 00:00:00 Completed [facility] HIB 4 Dose Schedule 2002 00:00:00 Completed [facility] Hep B, Adol or Pedi Dosage 2002 00:00:00 Completed [facility] DTAP 2002 00:00:00 Completed [facility] HIB 4 Dose Schedule 2002 00:00:00 Completed [facility] Hep B, Adol or Pedi Dosage 2002 00:00:00 Completed [facility] DTAP 2002 00:00:00 Completed [facility] HIB 4 Dose Schedule 2002 00:00:00 Completed [facility] Hep B, Adol or Pedi Dosage 2002 00:00:00 Completed [facility] DTAP 2002 00:00:00 Completed [facility] HIB 4 Dose Schedule 2002 00:00:00 Completed [facility] Hep B, Adol or Pedi Dosage 2002 00:00:00 Completed [facility] DTAP 2002 00:00:00 Completed [facility] HIB 4 Dose Schedule 2002 00:00:00 Completed [facility] Hep B, Adol or Pedi Dosage 2002 00:00:00 Completed [facility] DTAP 2002 00:00:00 Completed [facility] DTAP 2002 00:00:00 Completed [facility] HIB 4 Dose Schedule 2002 00:00:00 Completed [facility] Hep B, Adol or Pedi Dosage 2002 00:00:00 Completed [facility] HIB 4 Dose Schedule 2002 00:00:00 Completed [facility] DTAP 2002 00:00:00 Completed [facility] HIB 4 Dose Schedule 2002 00:00:00 Completed [facility] Hep B, Adol or Pedi Dosage 2002 00:00:00 Completed [facility] Hep B, Adol or Pedi Dosage 2002 00:00:00 Completed [facility] DTAP 2002 00:00:00 Completed [facility] HIB 4 Dose Schedule 2002 00:00:00 Completed [facility] Hep B, Adol or Pedi Dosage 2002 00:00:00 Completed [facility] DTAP 2002 00:00:00 Completed [facility] HIB 4 Dose Schedule 2002 00:00:00 Completed [facility] Hep B, Adol or Pedi Dosage 2002 00:00:00 Completed [facility] DTAP 2002 00:00:00 Completed [facility] DTAP 2002 00:00:00 Completed [facility] HIB 4 Dose Schedule 2002 00:00:00 Completed [facility] Hep B, Adol or Pedi Dosage 2002 00:00:00 Completed [facility] HIB 4 Dose Schedule 2002 00:00:00 Completed [facility] DTAP 2002 00:00:00 Completed [facility] HIB 4 Dose Schedule 2002 00:00:00 Completed [facility] Hep B, Adol or Pedi Dosage 2002 00:00:00 Completed [facility] DTAP 2002 00:00:00 Completed [facility] HIB 4 Dose Schedule 2002 00:00:00 Completed [facility] Hep B, Adol or Pedi Dosage 2002 00:00:00 Completed [facility] Hep B, Adol or Pedi Dosage 2002 00:00:00 Completed [facility] DTAP 2002 00:00:00 Completed [facility] HIB 4 Dose Schedule 2002 00:00:00 Completed [facility] Hep B, Adol or Pedi Dosage 2002 00:00:00 Completed [facility] DTAP 2002 00:00:00 Completed [facility] HIB 4 Dose Schedule 2002 00:00:00 Completed [facility] Hep B, Adol or Pedi Dosage 2002 00:00:00 Completed [facility] DTAP 2002 00:00:00 Completed [facility] HIB 4 Dose Schedule 2002 00:00:00 Completed [facility] Hep B, Adol or Pedi Dosage 2002 00:00:00 Completed [facility] DTAP 2002 00:00:00 Completed [facility] HIB 4 Dose Schedule 2002 00:00:00 Completed [facility] Hep B, Adol or Pedi Dosage 2002 00:00:00 Completed [facility] DTAP 2002 00:00:00 Completed [facility] HIB 4 Dose Schedule 2002 00:00:00 Completed [facility] Hep B, Adol or Pedi Dosage 2002 00:00:00 Completed [facility] DTAP 2002 00:00:00 Completed [facility] HIB 4 Dose Schedule 2002 00:00:00 Completed [facility] Hep B, Adol or Pedi Dosage 2002 00:00:00 Completed [facility] DTAP 2002 00:00:00 Completed [facility] HIB 4 Dose Schedule 2002 00:00:00 Completed [facility] Hep B, Adol or Pedi Dosage 2002 00:00:00 Completed [facility] DTAP 2002 00:00:00 Completed [facility] HIB 4 Dose Schedule 2002 00:00:00 Completed [facility] Hep B, Adol or Pedi Dosage 2002 00:00:00 Completed [facility] DTAP 2002 00:00:00 Completed [facility] DTAP 2002 00:00:00 Completed [facility] HIB 4 Dose Schedule 2002 00:00:00 Completed [facility] Hep B, Adol or Pedi Dosage 2002 00:00:00 Completed [facility] DTAP 2002 00:00:00 Completed [facility] HIB 4 Dose Schedule 2002 00:00:00 Completed [facility] HIB 4 Dose Schedule 2002 00:00:00 Completed [facility] Hep B, Adol or Pedi Dosage 2002 00:00:00 Completed [facility] DTAP 2002 00:00:00 Completed [facility] HIB 4 Dose Schedule 2002 00:00:00 Completed [facility] Polio (IPV/OPV) 2002 00:00:00 Completed [facility] DTAP 2002 00:00:00 Completed [facility] HIB 4 Dose Schedule 2002 00:00:00 Completed [facility] Polio (IPV/OPV) 2002 00:00:00 Completed [facility] Polio (IPV/OPV) 2002 00:00:00 Completed [facility] DTAP 2002 00:00:00 Completed [facility] HIB 4 Dose Schedule 2002 00:00:00 Completed [facility] Polio (IPV/OPV) 2002 00:00:00 Completed [facility] DTAP 2002 00:00:00 Completed [facility] HIB 4 Dose Schedule 2002 00:00:00 Completed [facility] Polio (IPV/OPV) 2002 00:00:00 Completed [facility] DTAP 2002 00:00:00 Completed [facility] HIB 4 Dose Schedule 2002 00:00:00 Completed [facility] Polio (IPV/OPV) 2002 00:00:00 Completed [facility] DTAP 2002 00:00:00 Completed [facility] HIB 4 Dose Schedule 2002 00:00:00 Completed [facility] Polio (IPV/OPV) 2002 00:00:00 Completed [facility] DTAP 2002 00:00:00 Completed [facility] HIB 4 Dose Schedule 2002 00:00:00 Completed [facility] Polio (IPV/OPV) 2002 00:00:00 Completed [facility] DTAP 2002 00:00:00 Completed [facility] HIB 4 Dose Schedule 2002 00:00:00 Completed [facility] DTAP 2002 00:00:00 Completed [facility] Polio (IPV/OPV) 2002 00:00:00 Completed [facility] DTAP 2002 00:00:00 Completed [facility] HIB 4 Dose Schedule 2002 00:00:00 Completed [facility] HIB 4 Dose Schedule 2002 00:00:00 Completed [facility] Polio (IPV/OPV) 2002 00:00:00 Completed [facility] DTAP 2002 00:00:00 Completed [facility] HIB 4 Dose Schedule 2002 00:00:00 Completed [facility] Polio (IPV/OPV) 2002 00:00:00 Completed [facility] DTAP 2002 00:00:00 Completed [facility] HIB 4 Dose Schedule 2002 00:00:00 Completed [facility] Polio (IPV/OPV) 2002 00:00:00 Completed [facility] DTAP 2002 00:00:00 Completed [facility] HIB 4 Dose Schedule 2002 00:00:00 Completed [facility] Polio (IPV/OPV) 2002 00:00:00 Completed [facility] Polio (IPV/OPV) 2002 00:00:00 Completed [facility] DTAP 2002 00:00:00 Completed [facility] HIB 4 Dose Schedule 2002 00:00:00 Completed [facility] Polio (IPV/OPV) 2002 00:00:00 Completed [facility] DTAP 2002 00:00:00 Completed [facility] HIB 4 Dose Schedule 2002 00:00:00 Completed [facility] Polio (IPV/OPV) 2002 00:00:00 Completed [facility] DTAP 2002 00:00:00 Completed [facility] HIB 4 Dose Schedule 2002 00:00:00 Completed [facility] Polio (IPV/OPV) 2002 00:00:00 Completed [facility] DTAP 2002 00:00:00 Completed [facility] HIB 4 Dose Schedule 2002 00:00:00 Completed [facility] Polio (IPV/OPV) 2002 00:00:00 Completed [facility] DTAP 2002 00:00:00 Completed [facility] HIB 4 Dose Schedule 2002 00:00:00 Completed [facility] Polio (IPV/OPV) 2002 00:00:00 Completed [facility] DTAP 2002 00:00:00 Completed [facility] HIB 4 Dose Schedule 2002 00:00:00 Completed [facility] Polio (IPV/OPV) 2002 00:00:00 Completed [facility] DTAP 2002 00:00:00 Completed [facility] DTAP 2002 00:00:00 Completed [facility] HIB 4 Dose Schedule 2002 00:00:00 Completed [facility] Polio (IPV/OPV) 2002 00:00:00 Completed [facility] HIB 4 Dose Schedule 2002 00:00:00 Completed [facility] DTAP 2002 00:00:00 Completed [facility] HIB 4 Dose Schedule 2002 00:00:00 Completed [facility] Polio (IPV/OPV) 2002 00:00:00 Completed [facility] DTAP 2002 00:00:00 Completed [facility] HIB 4 Dose Schedule 2002 00:00:00 Completed [facility] Polio (IPV/OPV) 2002 00:00:00 Completed [facility] DTAP 2002 00:00:00 Completed [facility] HIB 4 Dose Schedule 2002 00:00:00 Completed [facility] Polio (IPV/OPV) 2002 00:00:00 Completed [facility] Polio (IPV/OPV) 2002 00:00:00 Completed [facility] DTAP 2002 00:00:00 Completed [facility] HIB 4 Dose Schedule 2002 00:00:00 Completed [facility] Polio (IPV/OPV) 2002 00:00:00 Completed [facility] DTAP 2002 00:00:00 Completed [facility] HIB 4 Dose Schedule 2002 00:00:00 Completed [facility] Polio (IPV/OPV) 2002 00:00:00 Completed [facility] DTAP 2002 00:00:00 Completed [facility] HIB 4 Dose Schedule 2002 00:00:00 Completed [facility] Polio (IPV/OPV) 2002 00:00:00 Completed [facility] DTAP 2002 00:00:00 Completed [facility] HIB 4 Dose Schedule 2002 00:00:00 Completed [facility] [facility] Polio (IPV/OPV) 2002 00:00:00 Completed [facility] DTAP 2002 00:00:00 Completed [facility] HIB 4 Dose Schedule 2002 00:00:00 Completed [facility] DTAP 2002 00:00:00 Completed [facility] Polio (IPV/OPV) 2002 00:00:00 Completed [facility] DTAP 2002 00:00:00 Completed [facility] HIB 4 Dose Schedule 2002 00:00:00 Completed [facility] HIB 4 Dose Schedule 2002 00:00:00 Completed [facility] Polio (IPV/OPV) 2002 00:00:00 Completed [facility] DTAP 2002 00:00:00 Completed [facility] HIB 4 Dose Schedule 2002 00:00:00 Completed [facility] Polio (IPV/OPV) 2002 00:00:00 Completed [facility] DTAP 2002 00:00:00 Completed [facility] HIB 4 Dose Schedule 2002 00:00:00 Completed [facility] Polio (IPV/OPV) 2002 00:00:00 Completed [facility] Polio (IPV/OPV) 2002 00:00:00 Completed [facility] DTAP 2002 00:00:00 Completed [facility] HIB 4 Dose Schedule 2002 00:00:00 Completed [facility] Polio (IPV/OPV) 2002 00:00:00 Completed [facility] DTAP 2002 00:00:00 Completed [facility] HIB 4 Dose Schedule 2002 00:00:00 Completed [facility] Polio (IPV/OPV) 2002 00:00:00 Completed [facility] DTAP 2002 00:00:00 Completed [facility] HIB 4 Dose Schedule 2002 00:00:00 Completed [facility] Polio (IPV/OPV) 2002 00:00:00 Completed [facility] DTAP 2002 00:00:00 Completed [facility] HIB 4 Dose Schedule 2002 00:00:00 Completed [facility] Polio (IPV/OPV) 2002 00:00:00 Completed [facility] DTAP 2002 00:00:00 Completed [facility] HIB 4 Dose Schedule 2002 00:00:00 Completed [facility] Polio (IPV/OPV) 2002 00:00:00 Completed [facility] DTAP 2002 00:00:00 Completed [facility] HIB 4 Dose Schedule 2002 00:00:00 Completed [facility] DTAP 2002 00:00:00 Completed [facility] Polio (IPV/OPV) 2002 00:00:00 Completed [facility] DTAP 2002 00:00:00 Completed [facility] HIB 4 Dose Schedule 2002 00:00:00 Completed [facility] HIB 4 Dose Schedule 2002 00:00:00 Completed [facility] Polio (IPV/OPV) 2002 00:00:00 Completed [facility] DTAP 2002 00:00:00 Completed [facility] HIB 4 Dose Schedule 2002 00:00:00 Completed [facility] Polio (IPV/OPV) 2002 00:00:00 Completed [facility] DTAP 2002 00:00:00 Completed [facility] HIB 4 Dose Schedule 2002 00:00:00 Completed [facility] Polio (IPV/OPV) 2002 00:00:00 Completed [facility] DTAP 2002 00:00:00 Completed [facility] HIB 4 Dose Schedule 2002 00:00:00 Completed [facility] Polio (IPV/OPV) 2002 00:00:00 Completed [facility] Polio (IPV/OPV) 2002 00:00:00 Completed [facility] DTAP 2002 00:00:00 Completed [facility] HIB 4 Dose Schedule 2002 00:00:00 Completed [facility] Polio (IPV/OPV) 2002 00:00:00 Completed [facility] DTAP 2002 00:00:00 Completed [facility] HIB 4 Dose Schedule 2002 00:00:00 Completed [facility] Polio (IPV/OPV) 2002 00:00:00 Completed [facility] DTAP 2002 00:00:00 Completed [facility] DTAP 2002 00:00:00 Completed [facility] HIB 4 Dose Schedule 2002 00:00:00 Completed [facility] Polio (IPV/OPV) 2002 00:00:00 Completed [facility] HIB 4 Dose Schedule 2002 00:00:00 Completed [facility] DTAP 2002 00:00:00 Completed [facility] HIB 4 Dose Schedule 2002 00:00:00 Completed [facility] Polio (IPV/OPV) 2002 00:00:00 Completed [facility] DTAP 2002 00:00:00 Completed [facility] HIB 4 Dose Schedule 2002 00:00:00 Completed [facility] Polio (IPV/OPV) 2002 00:00:00 Completed [facility] DTAP 2002 00:00:00 Completed [facility] HIB 4 Dose Schedule 2002 00:00:00 Completed [facility] Polio (IPV/OPV) 2002 00:00:00 Completed [facility] Polio (IPV/OPV) 2002 00:00:00 Completed [facility] DTAP 2002 00:00:00 Completed [facility] HIB 4 Dose Schedule 2002 00:00:00 Completed [facility] Polio (IPV/OPV) 2002 00:00:00 Completed [facility] DTAP 2002 00:00:00 Completed [facility] HIB 4 Dose Schedule 2002 00:00:00 Completed [facility] Polio (IPV/OPV) 2002 00:00:00 Completed [facility] DTAP 2002 00:00:00 Completed [facility] HIB 4 Dose Schedule 2002 00:00:00 Completed [facility] Polio (IPV/OPV) 2002 00:00:00 Completed [facility] DTAP 2002 00:00:00 Completed [facility] HIB 4 Dose Schedule 2002 00:00:00 Completed [facility] DTAP 2002 00:00:00 Completed [facility] Polio (IPV/OPV) 2002 00:00:00 Completed [facility] DTAP 2002 00:00:00 Completed [facility] HIB 4 Dose Schedule 2002 00:00:00 Completed [facility] HIB 4 Dose Schedule 2002 00:00:00 Completed [facility] Polio (IPV/OPV) 2002 00:00:00 Completed [facility] DTAP 2002 00:00:00 Completed [facility] HIB 4 Dose Schedule 2002 00:00:00 Completed [facility] Polio (IPV/OPV) 2002 00:00:00 Completed [facility] DTAP 2002 00:00:00 Completed [facility] HIB 4 Dose Schedule 2002 00:00:00 Completed [facility] Polio (IPV/OPV) 2002 00:00:00 Completed [facility] DTAP 2002 00:00:00 Completed [facility] Polio (IPV/OPV) 2002 00:00:00 Completed [facility] HIB 4 Dose Schedule 2002 00:00:00 Completed [facility] Polio (IPV/OPV) 2002 00:00:00 Completed [facility] DTAP 2002 00:00:00 Completed [facility] HIB 4 Dose Schedule 2002 00:00:00 Completed [facility] Polio (IPV/OPV) 2002 00:00:00 Completed [facility] DTAP 2002 00:00:00 Completed [facility] HIB 4 Dose Schedule 2002 00:00:00 Completed [facility] Polio (IPV/OPV) 2002 00:00:00 Completed [facility] DTAP 2002 00:00:00 Completed [facility] HIB 4 Dose Schedule 2002 00:00:00 Completed [facility] Polio (IPV/OPV) 2002 00:00:00 Completed [facility] DTAP 2002 00:00:00 Completed [facility] HIB 4 Dose Schedule 2002 00:00:00 Completed [facility] Polio (IPV/OPV) 2002 00:00:00 Completed [facility] DTAP 2002 00:00:00 Completed [facility] DTAP 2002 00:00:00 Completed [facility] HIB 4 Dose Schedule 2002 00:00:00 Completed [facility] Polio (IPV/OPV) 2002 00:00:00 Completed [facility] HIB 4 Dose Schedule 2002 00:00:00 Completed [facility] DTAP 2002 00:00:00 Completed [facility] HIB 4 Dose Schedule 2002 00:00:00 Completed [facility] Polio (IPV/OPV) 2002 00:00:00 Completed [facility] DTAP 2002 00:00:00 Completed [facility] HIB 4 Dose Schedule 2002 00:00:00 Completed [facility] Polio (IPV/OPV) 2002 00:00:00 Completed [facility] DTAP 2002 00:00:00 Completed [facility] HIB 4 Dose Schedule 2002 00:00:00 Completed [facility] Polio (IPV/OPV) 2002 00:00:00 Completed [facility] Polio (IPV/OPV) 2002 00:00:00 Completed [facility] DTAP 2002 00:00:00 Completed [facility] HIB 4 Dose Schedule 2002 00:00:00 Completed [facility] Polio (IPV/OPV) 2002 00:00:00 Completed [facility] DTAP 2002 00:00:00 Completed [facility] HIB 4 Dose Schedule 2002 00:00:00 Completed [facility] Polio (IPV/OPV) 2002 00:00:00 Completed [facility] DTAP 2002 00:00:00 Completed [facility] HIB 4 Dose Schedule 2002 00:00:00 Completed [facility] Polio (IPV/OPV) 2002 00:00:00 Completed [facility] DTAP 2002 00:00:00 Completed [facility] HIB 4 Dose Schedule 2002 00:00:00 Completed [facility] Polio (IPV/OPV) 2002 00:00:00 Completed [facility] DTAP 2002 00:00:00 Completed [facility] DTAP 2002 00:00:00 Completed [facility] HIB 4 Dose Schedule 2002 00:00:00 Completed [facility] Polio (IPV/OPV) 2002 00:00:00 Completed [facility] HIB 4 Dose Schedule 2002 00:00:00 Completed [facility] DTAP 2002 00:00:00 Completed [facility] HIB 4 Dose Schedule 2002 00:00:00 Completed [facility] Polio (IPV/OPV) 2002 00:00:00 Completed [facility] DTAP 2002 00:00:00 Completed [facility] HIB 4 Dose Schedule 2002 00:00:00 Completed [facility] Polio (IPV/OPV) 2002 00:00:00 Completed [facility] DTAP 2002 00:00:00 Completed [facility] HIB 4 Dose Schedule 2002 00:00:00 Completed [facility] Polio (IPV/OPV) 2002 00:00:00 Completed [facility] Polio (IPV/OPV) 2002 00:00:00 Completed [facility] DTAP 2002 00:00:00 Completed [facility] HIB 4 Dose Schedule 2002 00:00:00 Completed [facility] Polio (IPV/OPV) 2002 00:00:00 Completed [facility] DTAP 2002 00:00:00 Completed [facility] HIB 4 Dose Schedule 2002 00:00:00 Completed [facility] Polio (IPV/OPV) 2002 00:00:00 Completed [facility] DTAP 2002 00:00:00 Completed [facility] HIB 4 Dose Schedule 2002 00:00:00 Completed [facility] Polio (IPV/OPV) 2002 00:00:00 Completed [facility] DTAP 2002 00:00:00 Completed [facility] HIB 4 Dose Schedule 2002 00:00:00 Completed [facility] Polio (IPV/OPV) 2002 00:00:00 Completed [facility] DTAP 2002 00:00:00 Completed [facility] HIB 4 Dose Schedule 2002 00:00:00 Completed [facility] DTAP 2002 00:00:00 Completed [facility] Polio (IPV/OPV) 2002 00:00:00 Completed [facility] DTAP 2002 00:00:00 Completed [facility] HIB 4 Dose Schedule 2002 00:00:00 Completed [facility] Polio (IPV/OPV) 2002 00:00:00 Completed [facility] HIB 4 Dose Schedule 2002 00:00:00 Completed [facility] DTAP 2002 00:00:00 Completed [facility] HIB 4 Dose Schedule 2002 00:00:00 Completed [facility] Polio (IPV/OPV) 2002 00:00:00 Completed [facility] DTAP 2002 00:00:00 Completed [facility] HIB 4 Dose Schedule 2002 00:00:00 Completed [facility] Polio (IPV/OPV) 2002 00:00:00 Completed [facility] DTAP 2002 00:00:00 Completed [facility] HIB 4 Dose Schedule 2002 00:00:00 Completed [facility] DTAP 2002 00:00:00 Completed [facility] Polio (IPV/OPV) 2002 00:00:00 Completed [facility] Polio (IPV/OPV) 2002 00:00:00 Completed [facility] DTAP 2002 00:00:00 Completed [facility] HIB 4 Dose Schedule 2002 00:00:00 Completed [facility] Polio (IPV/OPV) 2002 00:00:00 Completed [facility] HIB 4 Dose Schedule 2002 00:00:00 Completed [facility] DTAP 2002 00:00:00 Completed [facility] HIB 4 Dose Schedule 2002 00:00:00 Completed [facility] Polio (IPV/OPV) 2002 00:00:00 Completed [facility] DTAP 2002 00:00:00 Completed [facility] HIB 4 Dose Schedule 2002 00:00:00 Completed [facility] Polio (IPV/OPV) 2002 00:00:00 Completed [facility] DTAP 2002 00:00:00 Completed [facility] HIB 4 Dose Schedule 2002 00:00:00 Completed [facility] Polio (IPV/OPV) 2002 00:00:00 Completed [facility] Polio (IPV/OPV) 2002 00:00:00 Completed [facility] DTAP 2002 00:00:00 Completed [facility] HIB 4 Dose Schedule 2002 00:00:00 Completed [facility] Polio (IPV/OPV) 2002 00:00:00 Completed [facility] DTAP 2002 00:00:00 Completed [facility] HIB 4 Dose Schedule 2002 00:00:00 Completed [facility] Polio (IPV/OPV) 2002 00:00:00 Completed [facility] DTAP 2002 00:00:00 Completed [facility] HIB 4 Dose Schedule 2002 00:00:00 Completed [facility] Polio (IPV/OPV) 2002 00:00:00 Completed [facility] DTAP 2002 00:00:00 Completed [facility] HIB 4 Dose Schedule 2002 00:00:00 Completed [facility] Polio (IPV/OPV) 2002 00:00:00 Completed [facility] DTAP 2002 00:00:00 Completed [facility] HIB 4 Dose Schedule 2002 00:00:00 Completed [facility] Polio (IPV/OPV) 2002 00:00:00 Completed [facility] DTAP 2002 00:00:00 Completed [facility] HIB 4 Dose Schedule 2002 00:00:00 Completed [facility] Polio (IPV/OPV) 2002 00:00:00 Completed [facility] DTAP 2002 00:00:00 Completed [facility] HIB 4 Dose Schedule 2002 00:00:00 Completed [facility] Polio (IPV/OPV) 2002 00:00:00 Completed [facility] DTAP 2002 00:00:00 Completed [facility] DTAP 2002 00:00:00 Completed [facility] HIB 4 Dose Schedule 2002 00:00:00 Completed [facility] Polio (IPV/OPV) 2002 00:00:00 Completed [facility] HIB 4 Dose Schedule 2002 00:00:00 Completed [facility] DTAP 2002 00:00:00 Completed [facility] HIB 4 Dose Schedule 2002 00:00:00 Completed [facility] Polio (IPV/OPV) 2002 00:00:00 Completed [facility] DTAP 2002 00:00:00 Completed [facility] Hep B, Adol or Pedi Dosage 2002 00:00:00 Completed [facility] Hep B, Adol or Pedi Dosage 2002 00:00:00 Completed [facility] Polio (IPV/OPV) 2002 00:00:00 Completed [facility] DTAP 2002 00:00:00 Completed [facility] HIB 4 Dose Schedule 2002 00:00:00 Completed [facility] Hep B, Adol or Pedi Dosage 2002 00:00:00 Completed [facility] [place] Polio (IPV/OPV) 2002 00:00:00 Completed [facility] Polio (IPV/OPV) 2002 00:00:00 Completed [facility] DTAP 2002 00:00:00 Completed [facility] HIB 4 Dose Schedule 2002 00:00:00 Completed [facility] Hep B, Adol or Pedi Dosage 2002 00:00:00 Completed [facility] Polio (IPV/OPV) 2002 00:00:00 Completed [facility] DTAP 2002 00:00:00 Completed [facility] HIB 4 Dose Schedule 2002 00:00:00 Completed [facility] Hep B, Adol or Pedi Dosage 2002 00:00:00 Completed [facility] [place] Polio (IPV/OPV) 2002 00:00:00 Completed [facility] DTAP 2002 00:00:00 Completed [facility] HIB 4 Dose Schedule 2002 00:00:00 Completed [facility] Hep B, Adol or Pedi Dosage 2002 00:00:00 Completed [facility] Polio (IPV/OPV) 2002 00:00:00 Completed [facility] DTAP 2002 00:00:00 Completed [facility] HIB 4 Dose Schedule 2002 00:00:00 Completed [facility] Hep B, Adol or Pedi Dosage 2002 00:00:00 Completed [facility] [place] Polio (IPV/OPV) 2002 00:00:00 Completed [facility] DTAP 2002 00:00:00 Completed [facility] HIB 4 Dose Schedule 2002 00:00:00 Completed [facility] Hep B, Adol or Pedi Dosage 2002 00:00:00 Completed [facility] [place] Polio (IPV/OPV) 2002 00:00:00 Completed [facility] [place] DTAP 2002 00:00:00 Completed [facility] [place] DTAP 2002 00:00:00 Completed [facility] [place] HIB 4 Dose Schedule 2002 00:00:00 Completed [facility] Hep B, Adol or Pedi Dosage 2002 00:00:00 Completed [facility] [place] Polio (IPV/OPV) 2002 00:00:00 Completed [facility] DTAP 2002 00:00:00 Completed [facility] HIB 4 Dose Schedule 2002 00:00:00 Completed [facility] [place] HIB 4 Dose Schedule 2002 00:00:00 Completed [facility] Hep B, Adol or Pedi Dosage 2002 00:00:00 Completed [facility] [place] Polio (IPV/OPV) 2002 00:00:00 Completed [facility] [place] DTAP 2002 00:00:00 Completed [facility] HIB 4 Dose Schedule 2002 00:00:00 Completed [facility] Hep B, Adol or Pedi Dosage 2002 00:00:00 Completed [facility] [place] Polio (IPV/OPV) 2002 00:00:00 Completed [facility] Hep B, Adol or Pedi Dosage 2002 00:00:00 Completed [facility] [place] DTAP 2002 00:00:00 Completed [facility] HIB 4 Dose Schedule 2002 00:00:00 Completed [facility] Hep B, Adol or Pedi Dosage 2002 00:00:00 Completed [facility] [place] Polio (IPV/OPV) 2002 00:00:00 Completed [facility] [place] Polio (IPV/OPV) 2002 00:00:00 Completed [facility] DTAP 2002 00:00:00 Completed [facility] [place] HIB 4 Dose Schedule 2002 00:00:00 Completed [facility] Hep B, Adol or Pedi Dosage 2002 00:00:00 Completed [facility] [place] Polio (IPV/OPV) 2002 00:00:00 Completed [facility] DTAP 2002 00:00:00 Completed [facility] HIB 4 Dose Schedule 2002 00:00:00 Completed [facility] Hep B, Adol or Pedi Dosage 2002 00:00:00 Completed [facility] [place] Polio (IPV/OPV) 2002 00:00:00 Completed [facility] DTAP 2002 00:00:00 Completed [facility] [place] HIB 4 Dose Schedule 2002 00:00:00 Completed [facility] Hep B, Adol or Pedi Dosage 2002 00:00:00 Completed [facility] [place] Polio (IPV/OPV) 2002 00:00:00 Completed [facility] [place] DTAP 2002 00:00:00 Completed [facility] [place] HIB 4 Dose Schedule 2002 00:00:00 Completed [facility] Hep B, Adol or Pedi Dosage 2002 00:00:00 Completed [facility] [place] Polio (IPV/OPV) 2002 00:00:00 Completed [facility] DTAP 2002 00:00:00 Completed [facility] HIB 4 Dose Schedule 2002 00:00:00 Completed [facility] Hep B, Adol or Pedi Dosage 2002 00:00:00 Completed [facility] [place] Polio (IPV/OPV) 2002 00:00:00 Completed [facility] DTAP 2002 00:00:00 Completed [facility] HIB 4 Dose Schedule 2002 00:00:00 Completed [facility] Hep B, Adol or Pedi Dosage 2002 00:00:00 Completed [facility] [place] Polio (IPV/OPV) 2002 00:00:00 Completed [facility] DTAP 2002 00:00:00 Completed [facility] HIB 4 Dose Schedule 2002 00:00:00 Completed [facility] Hep B, Adol or Pedi Dosage 2002 00:00:00 Completed [facility] [place] Polio (IPV/OPV) 2002 00:00:00 Completed [facility] [place] DTAP 2002 00:00:00 Completed [facility] [place] DTAP 2002 00:00:00 Completed [facility] [place] HIB 4 Dose Schedule 2002 00:00:00 Completed [facility] Hep B, Adol or Pedi Dosage 2002 00:00:00 Completed [facility] [place] Polio (IPV/OPV) 2002 00:00:00 Completed [facility] HIB 4 Dose Schedule 2002 00:00:00 Completed [facility] DTAP 2002 00:00:00 Completed [facility] [place] HIB 4 Dose Schedule 2002 00:00:00 Completed [facility] Hep B, Adol or Pedi Dosage 2002 00:00:00 Completed [facility] [place] Polio (IPV/OPV) 2002 00:00:00 Completed [facility] [place] DTAP 2002 00:00:00 Completed [facility] HIB 4 Dose Schedule 2002 00:00:00 Completed [facility] Hep B, Adol or Pedi Dosage 2002 00:00:00 Completed [facility] Polio (IPV/OPV) 2002 00:00:00 Completed [facility] Hep B, Adol or Pedi Dosage 2002 00:00:00 [facility] [facility] [place] DTAP 2002 00:00:00 Completed [facility] [place] HIB 4 Dose Schedule 2002 00:00:00 Completed [facility] [place] Hep B, Adol or Pedi Dosage 2002 00:00:00 Completed [facility] [place] Polio (IPV/OPV) 2002 00:00:00 Completed [facility] [place] Polio (IPV/OPV) 2002 00:00:00 Completed [facility] [place] DTAP 2002 00:00:00 Completed [facility] [place] HIB 4 Dose Schedule 2002 00:00:00 Completed [facility] [place] Hep B, Adol or Pedi Dosage 2002 00:00:00 Completed [facility] [place] Polio (IPV/OPV) 2002 00:00:00 Completed [facility] [place] DTAP 2002 00:00:00 Completed [facility] [place] HIB 4 Dose Schedule 2002 00:00:00 Completed [facility] [place] Hep B, Adol or Pedi Dosage 2002 00:00:00 Completed [facility] [place] Polio (IPV/OPV) 2002 00:00:00 Completed [facility] [place] DTAP 2002 00:00:00 Completed [facility] [place] HIB 4 Dose Schedule 2002 00:00:00 Completed [facility] [place] Hep B, Adol or Pedi Dosage 2002 00:00:00 Completed [facility] [place] Polio (IPV/OPV) 2002 00:00:00 Completed [facility] [place] DTAP 2002 00:00:00 Completed [facility] [place] HIB 4 Dose Schedule 2002 00:00:00 Completed [facility] [place] Hep B, Adol or Pedi Dosage 2002 00:00:00 Completed [facility] [place] Polio (IPV/OPV) 2002 00:00:00 Completed [facility] [place] DTAP 2002 00:00:00 Completed [facility] [place] HIB 4 Dose Schedule 2002 00:00:00 Completed [facility] [place] DTAP 2002 00:00:00 Completed [facility] [place] Hep B, Adol or Pedi Dosage 2002 00:00:00 Completed [facility] [place] Polio (IPV/OPV) 2002 00:00:00 Completed [facility] [place] HIB 4 Dose Schedule 2002 00:00:00 Completed [facility] [place] DTAP 2002 00:00:00 Completed [facility] [place] HIB 4 Dose Schedule 2002 00:00:00 Completed [facility] [place] Hep B, Adol or Pedi Dosage 2002 00:00:00 Completed [facility] [place] Polio (IPV/OPV) 2002 00:00:00 Completed [facility] [place] DTAP 2002 00:00:00 Completed [facility] [place] HIB 4 Dose Schedule 2002 00:00:00 Completed [facility] [place] Hep B, Adol or Pedi Dosage 2002 00:00:00 Completed [facility] [place] Polio (IPV/OPV) 2002 00:00:00 Completed [facility] [place] Hep B, Adol or Pedi Dosage 2002 00:00:00 Completed [facility] [place] DTAP 2002 00:00:00 Completed [facility] [place] HIB 4 Dose Schedule 2002 00:00:00 Completed [facility] [place] Hep B, Adol or Pedi Dosage 2002 00:00:00 Completed [facility] [place] Polio (IPV/OPV) 2002 00:00:00 Completed [facility] [place] Polio (IPV/OPV) 2002 00:00:00 Completed [facility] [place] DTAP 2002 00:00:00 Completed [facility] [place] HIB 4 Dose Schedule 2002 00:00:00 Completed [facility] [place] Hep B, Adol or Pedi Dosage 2002 00:00:00 Completed [facility] [place] Polio (IPV/OPV) 2002 00:00:00 Completed [facility] [place] DTAP 2002 00:00:00 Completed [facility] [place] HIB 4 Dose Schedule 2002 00:00:00 Completed [facility] [place] Hep B, Adol or Pedi Dosage 2002 00:00:00 Completed [facility] [place] Polio (IPV/OPV) 2002 00:00:00 Completed [facility] [place] DTAP 2002 00:00:00 Completed [facility] [place] HIB 4 Dose Schedule 2002 00:00:00 Completed [facility] [place] Hep B, Adol or Pedi Dosage 2002 00:00:00 Completed [facility] [place] Polio (IPV/OPV) 2002 00:00:00 Completed [facility] [place] DTAP 2002 00:00:00 Completed [facility] [place] HIB 4 Dose Schedule 2002 00:00:00 Completed [facility] [place] Hep B, Adol or Pedi Dosage 2002 00:00:00 Completed [facility] [place] Polio (IPV/OPV) 2002 00:00:00 Completed [facility] [place] DTAP 2002 00:00:00 Completed [facility] [place] HIB 4 Dose Schedule 2002 00:00:00 Completed [facility] [place] Hep B, Adol or Pedi Dosage 2002 00:00:00 Completed [facility] [place] Polio (IPV/OPV) 2002 00:00:00 Completed [facility] [place] DTAP 2002 00:00:00 Completed [facility] [place] DTAP 2002 00:00:00 Completed [facility] [place] HIB 4 Dose Schedule 2002 00:00:00 Completed [facility] [place] Hep B, Adol or Pedi Dosage 2002 00:00:00 Completed [facility] [place] Polio (IPV/OPV) 2002 00:00:00 Completed [facility] [place] DTAP 2002 00:00:00 Completed [facility] [place] HIB 4 Dose Schedule 2002 00:00:00 Completed [facility] [place] HIB 4 Dose Schedule 2002 00:00:00 Completed [facility] [place] Hep B, Adol or Pedi Dosage 2002 00:00:00 Completed [facility] [place] Polio (IPV/OPV) 2002 00:00:00 Completed [facility] [place] DTAP 2002 00:00:00 Completed [facility] [place] HIB 4 Dose Schedule 2002 00:00:00 Completed [facility] [place] Hep B, Adol or Pedi Dosage 2002 00:00:00 Completed [facility] [place] Polio (IPV/OPV) 2002 00:00:00 Completed [facility] [place] Hep B, Adol or Pedi Dosage 2002 00:00:00 Completed [facility] [place] DTAP 2002 00:00:00 Completed [facility] [place] HIB 4 Dose Schedule 2002 00:00:00 Completed [facility] [place] Hep B, Adol or Pedi Dosage 2002 00:00:00 Completed [facility] [place] Polio (IPV/OPV) 2002 00:00:00 Completed [facility] [place] Polio (IPV/OPV) 2002 00:00:00 Completed [facility] [place] DTAP 2002 00:00:00 Completed [facility] [place] HIB 4 Dose Schedule 2002 00:00:00 Completed [facility] [place] Hep B, Adol or Pedi Dosage 2002 00:00:00 Completed [facility] [place] Polio (IPV/OPV) 2002 00:00:00 Completed [facility] [place] DTAP 2002 00:00:00 Completed [facility] [place] HIB 4 Dose Schedule 2002 00:00:00 Completed [facility] [place] Hep B, Adol or Pedi Dosage 2002 00:00:00 Completed [facility] [place] Polio (IPV/OPV) 2002 00:00:00 Completed [facility] [place] DTAP 2002 00:00:00 Completed [facility] [place] HIB 4 Dose Schedule 2002 00:00:00 Completed [facility] [place] Hep B, Adol or Pedi Dosage 2002 00:00:00 Completed [facility] [place] Polio (IPV/OPV) 2002 00:00:00 Completed [facility] [place] DTAP 2002 00:00:00 Completed [facility] [place] DTAP 2002 00:00:00 Completed [facility] [place] HIB 4 Dose Schedule 2002 00:00:00 Completed [facility] [place] Hep B, Adol or Pedi Dosage 2002 00:00:00 Completed [facility] [place] Polio (IPV/OPV) 2002 00:00:00 Completed [facility] [place] HIB 4 Dose Schedule 2002 00:00:00 Completed [facility] [place] DTAP 2002 00:00:00 Completed [facility] [place] HIB 4 Dose Schedule 2002 00:00:00 Completed [facility] [place] Hep B, Adol or Pedi Dosage 2002 00:00:00 Completed [facility] [place] Polio (IPV/OPV) 2002 00:00:00 Completed [facility] [place] Hep B, Adol or Pedi Dosage 2002 00:00:00 Completed [facility] [place] DTAP 2002 00:00:00 Completed [facility] [place] HIB 4 Dose Schedule 2002 00:00:00 Completed [facility] [place] Hep B, Adol or Pedi Dosage 2002 00:00:00 Completed [facility] [place] Polio (IPV/OPV) 2002 00:00:00 Completed [facility] [place] Polio (IPV/OPV) 2002 00:00:00 Completed [facility] [place] DTAP 2002 00:00:00 Completed [facility] [place] HIB 4 Dose Schedule 2002 00:00:00 Completed [facility] [place] Hep B, Adol or Pedi Dosage 2002 00:00:00 Completed [facility] [place] Polio (IPV/OPV) 2002 00:00:00 Completed [facility] [place] DTAP 2002 00:00:00 Completed [facility] [place] HIB 4 Dose Schedule 2002 00:00:00 Completed [facility] [place] Hep B, Adol or Pedi Dosage 2002 00:00:00 Completed [facility] [place] Polio (IPV/OPV) 2002 00:00:00 Completed [facility] [place] DTAP 2002 00:00:00 Completed [facility] [place] HIB 4 Dose Schedule 2002 00:00:00 Completed [facility] [place] Hep B, Adol or Pedi Dosage 2002 00:00:00 Completed [facility] [place] Polio (IPV/OPV) 2002 00:00:00 Completed [facility] [place] DTAP 2002 00:00:00 Completed [facility] [place] HIB 4 Dose Schedule 2002 00:00:00 Completed [facility] [place] Hep B, Adol or Pedi Dosage 2002 00:00:00 Completed [facility] [place] Polio (IPV/OPV) 2002 00:00:00 Completed [facility] [place] DTAP 2002 00:00:00 Completed [facility] [place] DTAP 2002 00:00:00 Completed [facility] [place] HIB 4 Dose Schedule 2002 00:00:00 Completed [facility] [place] Hep B, Adol or Pedi Dosage 2002 00:00:00 Completed [facility] [place] Polio (IPV/OPV) 2002 00:00:00 Completed [facility] [place] HIB 4 Dose Schedule 2002 00:00:00 Completed [facility] [place] DTAP 2002 00:00:00 Completed [facility] [place] HIB 4 Dose Schedule 2002 00:00:00 Completed [facility] [place] Hep B, Adol or Pedi Dosage 2002 00:00:00 Completed [facility] [place] Polio (IPV/OPV) 2002 00:00:00 Completed [facility] [place] DTAP 2002 00:00:00 Completed [facility] [place] HIB 4 Dose Schedule 2002 00:00:00 Completed [facility] [place] Hep B, Adol or Pedi Dosage 2002 00:00:00 Completed [facility] [place] Polio (IPV/OPV) 2002 00:00:00 Completed [facility] [place] Hep B, Adol or Pedi Dosage 2002 00:00:00 Completed [facility] [place] DTAP 2002 00:00:00 Completed [facility] [place] HIB 4 Dose Schedule 2002 00:00:00 Completed [facility] [place] Hep B, Adol or Pedi Dosage 2002 00:00:00 Completed [facility] [place] Polio (IPV/OPV) 2002 00:00:00 Completed [facility] [place] Polio (IPV/OPV) 2002 00:00:00 Completed [facility] [place] DTAP 2002 00:00:00 Completed [facility] [place] HIB 4 Dose Schedule 2002 00:00:00 Completed [facility] [place] Hep B, Adol or Pedi Dosage 2002 00:00:00 Completed [facility] [place] Polio (IPV/OPV) 2002 00:00:00 Completed [facility] [place] DTAP 2002 00:00:00 Completed [facility] [place] HIB 4 Dose Schedule 2002 00:00:00 Completed [facility] [place] Hep B, Adol or Pedi Dosage 2002 00:00:00 Completed [facility] [place] Polio (IPV/OPV) 2002 00:00:00 Completed [facility] [place] DTAP 2002 00:00:00 Completed [facility] [place] HIB 4 Dose Schedule 2002 00:00:00 Completed [facility] [place] Hep B, Adol or Pedi Dosage 2002 00:00:00 Completed [facility] [place] Polio (IPV/OPV) 2002 00:00:00 Completed [facility] [place] DTAP 2002 00:00:00 Completed [facility] [place] HIB 4 Dose Schedule 2002 00:00:00 Completed [facility] [place] Hep B, Adol or Pedi Dosage 2002 00:00:00 Completed [facility] [place] Polio (IPV/OPV) 2002 00:00:00 Completed [facility] [place] DTAP 2002 00:00:00 Completed [facility] [place] HIB 4 Dose Schedule 2002 00:00:00 Completed [facility] [place] Hep B, Adol or Pedi Dosage 2002 00:00:00 Completed [facility] [place] Polio (IPV/OPV) 2002 00:00:00 Completed [facility] [place] DTAP 2002 00:00:00 Completed [facility] [place] DTAP 2002 00:00:00 Completed [facility] [place] HIB 4 Dose Schedule 2002 00:00:00 Completed [facility] [place] Hep B, Adol or Pedi Dosage 2002 00:00:00 Completed [facility] [place] Polio (IPV/OPV) 2002 00:00:00 Completed [facility] [place] HIB 4 Dose Schedule 2002 00:00:00 Completed [facility] [place] DTAP 2002 00:00:00 Completed [facility] [place] HIB 4 Dose Schedule 2002 00:00:00 Completed [facility] [place] Hep B, Adol or Pedi Dosage 2002 00:00:00 Completed [facility] [place] Polio (IPV/OPV) 2002 00:00:00 Completed [facility] [place] DTAP 2002 00:00:00 Completed [facility] [place] Hep B, Adol or Pedi Dosage 2002 00:00:00 Completed [facility] [place] HIB 4 Dose Schedule 2002 00:00:00 Completed [facility] [place] Hep B, Adol or Pedi Dosage 2002 00:00:00 Completed [facility] [place] Polio (IPV/OPV) 2002 00:00:00 Completed [facility] [place] Polio (IPV/OPV) 2002 00:00:00 Completed [facility] [place] DTAP 2002 00:00:00 Completed [facility] [place] HIB 4 Dose Schedule 2002 00:00:00 Completed [facility] [place] Hep B, Adol or Pedi Dosage 2002 00:00:00 Completed [facility] [place] Polio (IPV/OPV) 2002 00:00:00 Completed [facility] [place] DTAP 2002 00:00:00 Completed [facility] [place] HIB 4 Dose Schedule 2002 00:00:00 Completed [facility] [place] Hep B, Adol or Pedi Dosage 2002 00:00:00 Completed [facility] [place] Polio (IPV/OPV) 2002 00:00:00 Completed [facility] [place] DTAP 2002 00:00:00 Completed [facility] [place] HIB 4 Dose Schedule 2002 00:00:00 Completed [facility] [place] Hep B, Adol or Pedi Dosage 2002 00:00:00 Completed [facility] [place] Polio (IPV/OPV) 2002 00:00:00 Completed [facility] [place] DTAP 2002 00:00:00 Completed [facility] [place] HIB 4 Dose Schedule 2002 00:00:00 Completed [facility] [place] Hep B, Adol or Pedi Dosage 2002 00:00:00 Completed [facility] [place] Polio (IPV/OPV) 2002 00:00:00 Completed [facility] [place] DTAP 2002 00:00:00 Completed [facility] [place] HIB 4 Dose Schedule 2002 00:00:00 Completed [facility] [place] Hep B, Adol or Pedi Dosage 2002 00:00:00 Completed [facility] [place] Polio (IPV/OPV) 2002 00:00:00 Completed [facility] [place] DTAP 2002 00:00:00 Completed [facility] [place] DTAP 2002 00:00:00 Completed [facility] [place] HIB 4 Dose Schedule 2002 00:00:00 Completed [facility] [place] Hep B, Adol or Pedi Dosage 2002 00:00:00 Completed [facility] [place] Polio (IPV/OPV) 2002 00:00:00 Completed [facility] [place] HIB 4 Dose Schedule 2002 00:00:00 Completed [facility] [place] DTAP 2002 00:00:00 Completed [facility] [place] HIB 4 Dose Schedule 2002 00:00:00 Completed [facility] [place] Hep B, Adol or Pedi Dosage 2002 00:00:00 Completed [facility] [place] Polio (IPV/OPV) 2002 00:00:00 Completed [facility] [place] DTAP 2002 00:00:00 Completed [facility] [place] HIB 4 Dose Schedule 2002 00:00:00 Completed [facility] [place] Hep B, Adol or Pedi Dosage 2002 00:00:00 Completed [facility] [place] Hep B, Adol or Pedi Dosage 2002 00:00:00 Completed [facility] [place] Polio (IPV/OPV) 2002 00:00:00 Completed [facility] [place] DTAP 2002 00:00:00 Completed [facility] [place] Polio (IPV/OPV) 2002 00:00:00 Completed [facility] [place] HIB 4 Dose Schedule 2002 00:00:00 Completed [facility] [place] Hep B, Adol or Pedi Dosage 2002 00:00:00 Completed [facility] [place] Polio (IPV/OPV) 2002 00:00:00 Completed [facility] [place] DTAP 2002 00:00:00 Completed [facility] [place] HIB 4 Dose Schedule 2002 00:00:00 Completed [facility] [place] Hep B, Adol or Pedi Dosage 2002 00:00:00 Completed [facility] [place] Polio (IPV/OPV) 2002 00:00:00 Completed [facility] [place] DTAP 2002 00:00:00 Completed [facility] [place] HIB 4 Dose Schedule 2002 00:00:00 Completed [facility] [place] Hep B, Adol or Pedi Dosage 2002 00:00:00 Completed [facility] [place] Polio (IPV/OPV) 2002 00:00:00 Completed [facility] [place] DTAP 2002 00:00:00 Completed [facility] [place] HIB 4 Dose Schedule 2002 00:00:00 Completed [facility] [place] Hep B, Adol or Pedi Dosage 2002 00:00:00 Completed [facility] [place] Polio (IPV/OPV) 2002 00:00:00 Completed [facility] [place] DTAP 2002 00:00:00 Completed [facility] [place] HIB 4 Dose Schedule 2002 00:00:00 Completed [facility] [place] Hep B, Adol or Pedi Dosage 2002 00:00:00 Completed [facility] [place] Polio (IPV/OPV) 2002 00:00:00 Completed [facility] [place] DTAP 2002 00:00:00 Completed [facility] [place] HIB 4 Dose Schedule 2002 00:00:00 Completed [facility] [place] DTAP 2002 00:00:00 Completed [facility] [place] Hep B, Adol or Pedi Dosage 2002 00:00:00 Completed [facility] [place] Polio (IPV/OPV) 2002 00:00:00 Completed [facility] [place] DTAP 2002 00:00:00 Completed [facility] [place] HIB 4 Dose Schedule 2002 00:00:00 Completed [facility] [place] HIB 4 Dose Schedule 2002 00:00:00 Completed [facility] [place] Hep B, Adol or Pedi Dosage 2002 00:00:00 Completed [facility] [place] Polio (IPV/OPV) 2002 00:00:00 Completed [facility] [place] DTAP 2002 00:00:00 Completed [facility] [place] DTAP 2002 00:00:00 Completed [facility] [place] HIB 4 Dose Schedule 2002 00:00:00 Completed [facility] [place] Hep B, Adol or Pedi Dosage 2002 00:00:00 Completed [facility] [place] Polio (IPV/OPV) 2002 00:00:00 Completed [facility] [place] Hep B, Adol or Pedi Dosage 2002 00:00:00 Completed [facility] [place] DTAP 2002 00:00:00 Completed [facility] [place] HIB 4 Dose Schedule 2002 00:00:00 Completed [facility] [place] Hep B, Adol or Pedi Dosage 2002 00:00:00 Completed [facility] [place] Polio (IPV/OPV) 2002 00:00:00 Completed [facility] [place] Polio (IPV/OPV) 2002 00:00:00 Completed [facility] [place] DTAP 2002 00:00:00 Completed [facility] [place] HIB 4 Dose Schedule 2002 00:00:00 Completed [facility] [place] Hep B, Adol or Pedi Dosage 2002 00:00:00 Completed [facility] [place] Polio (IPV/OPV) 2002 00:00:00 Completed [facility] [place] DTAP 2002 00:00:00 Completed [facility] [place] HIB 4 Dose Schedule 2002 00:00:00 Completed [facility] [place] Hep B, Adol or Pedi Dosage 2002 00:00:00 Completed [facility] [place] HIB 4 Dose Schedule 2002 00:00:00 Completed [facility] [place] Polio (IPV/OPV) 2002 00:00:00 Completed [facility] [place] DTAP 2002 00:00:00 Completed [facility] [place] HIB 4 Dose Schedule 2002 00:00:00 Completed [facility] [place] Hep B, Adol or Pedi Dosage 2002 00:00:00 Completed [facility] [place] Polio (IPV/OPV) 2002 00:00:00 Completed [facility] [place] DTAP 2002 00:00:00 Completed [facility] [place] Hep B, Adol or Pedi Dosage 2002 00:00:00 Completed [facility] [place] HIB 4 Dose Schedule 2002 00:00:00 Completed [facility] [place] Hep B, Adol or Pedi Dosage 2002 00:00:00 Completed [facility] [place] Polio (IPV/OPV) 2002 00:00:00 Completed [facility] [place] DTAP 2002 00:00:00 Completed [facility] [place] HIB 4 Dose Schedule 2002 00:00:00 Completed [facility] [place] Polio (IPV/OPV) 2002 00:00:00 Completed [facility] [place] Hep B, Adol or Pedi Dosage 2002 00:00:00 Completed [facility] [place] Polio (IPV/OPV) 2002 00:00:00 Completed [facility] [place] DTAP 2002 00:00:00 Completed [facility] [place] HIB 4 Dose Schedule 2002 00:00:00 Completed [facility] [place] Hep B, Adol or Pedi Dosage 2002 00:00:00 Completed [facility] [place] Polio (IPV/OPV) 2002 00:00:00 Completed [facility] [place] DTAP 2002 00:00:00 Completed [facility] [place] HIB 4 Dose Schedule 2002 00:00:00 Completed [facility] [place] Hep B, Adol or Pedi Dosage 2002 00:00:00 Completed [facility] [place] Polio (IPV/OPV) 2002 00:00:00 Completed [facility] [place] DTAP 2002 00:00:00 Completed [facility] [place] HIB 4 Dose Schedule 2002 00:00:00 Completed [facility] [place] Hep B, Adol or Pedi Dosage 2002 00:00:00 Completed [facility] [place] Polio (IPV/OPV) 2002 00:00:00 Completed [facility] [place] DTAP 2002 00:00:00 Completed [facility] [place] HIB 4 Dose Schedule 2002 00:00:00 Completed [facility] [place] Hep B, Adol or Pedi Dosage 2002 00:00:00 Completed [facility] [place] Polio (IPV/OPV) 2002 00:00:00 Completed [facility] [place] DTAP 2002 00:00:00 Completed [facility] [place] HIB 4 Dose Schedule 2002 00:00:00 Completed [facility] [place] Hep B, Adol or Pedi Dosage 2002 00:00:00 Completed [facility] [place] Polio (IPV/OPV) 2002 00:00:00 Completed [facility] [place] DTAP 2002 00:00:00 Completed [facility] [place] HIB 4 Dose Schedule 2002 00:00:00 Completed [facility] [place] Hep B, Adol or Pedi Dosage 2002 00:00:00 Completed [facility] [place] Polio (IPV/OPV) 2002 00:00:00 Completed [facility] [place] DTAP 2002 00:00:00 Completed [facility] [place] HIB 4 Dose Schedule 2002 00:00:00 Completed [facility] [place] Hep B, Adol or Pedi Dosage 2002 00:00:00 Completed [facility] Polio (IPV/OPV) 2002 00:00:00 Completed [facility] DTAP 2002 00:00:00 Completed [facility] DTAP 2002 00:00:00 Completed [facility] HIB 4 Dose Schedule 2002 00:00:00 Completed [facility] Hep B, Adol or Pedi Dosage 2002 00:00:00 Completed [facility] Polio (IPV/OPV) 2002 00:00:00 Completed [facility] HIB 4 Dose Schedule 2002 00:00:00 Completed [facility] DTAP 2002 00:00:00 Completed [facility] HIB 4 Dose Schedule 2002 00:00:00 Completed [facility] Hep B, Adol or Pedi Dosage 2002 00:00:00 Completed [facility] Polio (IPV/OPV) 2002 00:00:00 Completed [facility] DTAP 2002 00:00:00 Completed [facility] HIB 4 Dose Schedule 2002 00:00:00 Completed [facility] Hep B, Adol or Pedi Dosage 2002 00:00:00 Completed [facility] Hep B, Adol or Pedi Dosage 2002 00:00:00 Completed [facility] Hep B, Adol or Pedi Dosage 2002 00:00:00 Completed [facility] Hep B, Adol or Pedi Dosage 2002 00:00:00 Completed [facility] Hep B, Adol or Pedi Dosage 2002 00:00:00 Completed [facility] Hep B, Adol or Pedi Dosage 2002 00:00:00 Completed [facility] Hep B, Adol or Pedi Dosage 2002 00:00:00 Completed [facility] Hep B, Adol or Pedi Dosage 2002 00:00:00 Completed [facility] Hep B, Adol or Pedi Dosage 2002 00:00:00 Completed [facility] Hep B, Adol or Pedi Dosage 2002 00:00:00 Completed [facility] Hep B, Adol or Pedi Dosage 2002 00:00:00 Completed [facility] Hep B, Adol or Pedi Dosage 2002 00:00:00 Completed [facility] Hep B, Adol or Pedi Dosage 2002 00:00:00 Completed [facility] Hep B, Adol or Pedi Dosage 2002 00:00:00 Completed [facility] Hep B, Adol or Pedi Dosage 2002 00:00:00 Completed [facility] Hep B, Adol or Pedi Dosage 2002 00:00:00 Completed [facility] Hep B, Adol or Pedi Dosage 2002 00:00:00 Completed [facility] Hep B, Adol or Pedi Dosage 2002 00:00:00 Completed [facility] Hep B, Adol or Pedi Dosage 2002 00:00:00 Completed [facility] Hep B, Adol or Pedi Dosage 2002 00:00:00 Completed [facility] Hep B, Adol or Pedi Dosage 2002 00:00:00 Completed [facility] Hep B, Adol or Pedi Dosage 2002 00:00:00 Completed [facility] Hep B, Adol or Pedi Dosage 2002 00:00:00 Completed [facility] Hep B, Adol or Pedi Dosage 2002 00:00:00 Completed [facility] Hep B, Adol or Pedi Dosage 2002 00:00:00 Completed [facility] Hep B, Adol or Pedi Dosage 2002 00:00:00 Completed [facility] Hep B, Adol or Pedi Dosage 2002 00:00:00 Completed [facility] Hep B, Adol or Pedi Dosage 2002 00:00:00 Completed [facility] Hep B, Adol or Pedi Dosage 2002 00:00:00 Completed [facility] Hep B, Adol or Pedi Dosage 2002 00:00:00 Completed [facility] Hep B, Adol or Pedi Dosage 2002 00:00:00 Completed [facility] Hep B, Adol or Pedi Dosage 2002 00:00:00 Completed [facility] Hep B, Adol or Pedi Dosage 2002 00:00:00 Completed [facility] Hep B, Adol or Pedi Dosage 2002 00:00:00 Completed [facility] Hep B, Adol or Pedi Dosage 2002 00:00:00 Completed [facility] Hep B, Adol or Pedi Dosage 2002 00:00:00 Completed [facility] Hep B, Adol or Pedi Dosage 2002 00:00:00 Completed [facility] Hep B, Adol or Pedi Dosage 2002 00:00:00 Completed [facility] Hep B, Adol or Pedi Dosage 2002 00:00:00 Completed [facility] Hep B, Adol or Pedi Dosage 2002 00:00:00 Completed [facility] Hep B, Adol or Pedi Dosage 2002 00:00:00 Completed [facility] Hep B, Adol or Pedi Dosage 2002 00:00:00 Completed [facility] Hep B, Adol or Pedi Dosage 2002 00:00:00 Completed [facility] Hep B, Adol or Pedi Dosage 2002 00:00:00 Completed [facility] Hep B, Adol or Pedi Dosage 2002 00:00:00 Completed [facility] Hep B, Adol or Pedi Dosage 2002 00:00:00 Completed [facility] Hep B, Adol or Pedi Dosage 2002 00:00:00 Completed [facility] Hep B, Adol or Pedi Dosage 2002 00:00:00 Completed [facility] Hep B, Adol or Pedi Dosage 2002 00:00:00 Completed [facility] Hep B, Adol or Pedi Dosage 2002 00:00:00 Completed [facility] Hep B, Adol or Pedi Dosage 2002 00:00:00 Completed [facility] Hep B, Adol or Pedi Dosage 2002 00:00:00 Completed [facility] Hep B, Adol or Pedi Dosage 2002 00:00:00 Completed [facility] Hep B, Adol or Pedi Dosage 2002 00:00:00 Completed [facility] Hep B, Adol or Pedi Dosage 2002 00:00:00 Completed [facility] Hep B, Adol or Pedi Dosage 2002 00:00:00 Completed [facility] Hep B, Adol or Pedi Dosage 2002 00:00:00 Completed [facility] Hep B, Adol or Pedi Dosage 2002 00:00:00 Completed [facility] Hep B, Adol or Pedi Dosage 2002 00:00:00 Completed [facility] Hep B, Adol or Pedi Dosage 2002 00:00:00 Completed [facility] Hep B, Adol or Pedi Dosage 2002 00:00:00 Completed [facility] Hep B, Adol or Pedi Dosage 2002 00:00:00 Completed [facility] Hep B, Adol or Pedi Dosage 2002 00:00:00 Completed [facility] Hep B, Adol or Pedi Dosage 2002 00:00:00 Completed [facility] Hep B, Adol or Pedi Dosage 2002 00:00:00 Completed [facility] Hep B, Adol or Pedi Dosage 2002 00:00:00 Completed [facility] Hep B, Adol or Pedi Dosage 2002 00:00:00 Completed [facility] Hep B, Adol or Pedi Dosage 2002 00:00:00 Completed [facility] Hep B, Adol or Pedi Dosage 2002 00:00:00 Completed [facility] Hep B, Adol or Pedi Dosage 2002 00:00:00 Completed [facility] Hep B, Adol or Pedi Dosage 2002 00:00:00 Completed [facility] Hep B, Adol or Pedi Dosage 2002 00:00:00 Completed [facility] Hep B, Adol or Pedi Dosage 2002 00:00:00 Completed [facility] Hep B, Adol or Pedi Dosage 2002 00:00:00 Completed [facility] Hep B, Adol or Pedi Dosage 2002 00:00:00 Completed [facility] Hep B, Adol or Pedi Dosage 2002 00:00:00 Completed [facility] Hep B, Adol or Pedi Dosage 2002 00:00:00 Completed [facility] Hep B, Adol or Pedi Dosage 2002 00:00:00 Completed [facility] Hep B, Adol or Pedi Dosage 2002 00:00:00 Completed [facility] Hep B, Adol or Pedi Dosage 2002 00:00:00 Completed [facility] Hep B, Adol or Pedi Dosage 2002 00:00:00 Completed [facility] Hep B, Adol or Pedi Dosage 2002 00:00:00 Completed [facility] Hep B, Adol or Pedi Dosage 2002 00:00:00 Completed [facility] Hep B, Adol or Pedi Dosage 2002 00:00:00 Completed [facility] Hep B, Adol or Pedi Dosage 2002 00:00:00 Completed [facility] Hep B, Adol or Pedi Dosage 2002 00:00:00 Completed [facility] Hep B, Adol or Pedi Dosage 2002 00:00:00 Completed [facility] Hep B, Adol or Pedi Dosage 2002 00:00:00 Completed [facility] Hep B, Adol or Pedi Dosage 2002 00:00:00 Completed [facility] Hep B, Adol or Pedi Dosage 2002 00:00:00 Completed [facility] Hep B, Adol or Pedi Dosage 2002 00:00:00 Completed [facility] Hep B, Adol or Pedi Dosage 2002 00:00:00 Completed [facility] Hep B, Adol or Pedi Dosage 2002 00:00:00 Completed [facility] Hep B, Adol or Pedi Dosage 2002 00:00:00 Completed [facility] Hep B, Adol or Pedi Dosage 2002 00:00:00 Completed [facility] Hep B, Adol or Pedi Dosage 2002 00:00:00 Completed [facility] Hep B, Adol or Pedi Dosage 2002 00:00:00 Completed [facility] Hep B, Adol or Pedi Dosage 2002 00:00:00 Completed [facility] Hep B, Adol or Pedi Dosage 2002 00:00:00 Completed [facility] Hep B, Adol or Pedi Dosage 2002 00:00:00 Completed [facility] Hep B, Adol or Pedi Dosage 2002 00:00:00 Completed [facility] Hep B, Adol or Pedi Dosage 2002 00:00:00 Completed [facility] Hep B, Adol or Pedi Dosage 2002 00:00:00 Completed [facility] HPV Unknown Completed [facility] HPV Unknown Completed [facility] HPV Unknown Completed [facility] DTAP Unknown Completed [facility] DTAP Unknown Completed [facility] DTAP Unknown Completed [facility] DTAP Unknown Completed [facility] HIB 4 Dose Schedule Unknown Completed [facility] HIB 4 Dose Schedule Unknown Completed [facility] HIB 4 Dose Schedule Unknown Completed [facility] HIB 4 Dose Schedule Unknown Completed [facility] HEPATITIS A Unknown Completed [facility] HEPATITIS A Unknown Completed [facility] Hep B, Adol or Pedi Dosage Unknown Completed [facility] Hep B, Adol or Pedi Dosage Unknown Completed [facility] Hep B, Adol or Pedi Dosage Unknown Completed [facility] Meningococcal Polysaccharide (groups A, C, Y and W-135) conjugate vaccine (MCV4P) Unknown Completed [facility] MMR Unknown Completed [facility] Polio (IPV/OPV) Unknown Completed [facility] Polio (IPV/OPV) Unknown Completed [facility] Polio (IPV/OPV) Unknown Completed [facility] Polio (IPV/OPV) Unknown Completed [facility] TDAP Unknown Completed [facility] Varicella (varivax)(chicken pox) Unknown Completed [facility] Varicella (varivax)(chicken pox) Unknown Completed [facility] DTAP Unknown Completed [facility] MMR Unknown Completed [facility] Pneumococcal 7 Conjugate, PCV7 (Prevnar7) Unknown Completed [facility] Pneumococcal 7 Conjugate, PCV7 (Prevnar7) Unknown Completed [facility] Influenza Virus Vaccine Quad .5 mL IM 6+ MO (FLUZONE/FLULAVAL/FL UARIX) Unknown Completed [facility] Meningococcal Polysaccharide (groups A, C, Y and W-135) conjugate vaccine (MCV4P) Unknown Completed [facility] Meningococcal B, Recombinant Unknown Completed [facility] Meningococcal B, OMV Unknown Completed [facility] SARS-COV-2 COVID-19 PFIZER VACCINE Unknown Completed [facility] SARS-COV-2 COVID-19 PFIZER VACCINE Unknown Completed [facility] HPV Unknown Completed [facility] HPV Unknown Completed [facility] HPV Unknown Completed [facility] DTAP Unknown Completed [facility] DTAP Unknown Completed [facility] DTAP Unknown Completed [facility] DTAP Unknown Completed [facility] HIB 4 Dose Schedule Unknown Completed [facility] HIB 4 Dose Schedule Unknown Completed [facility] HIB 4 Dose Schedule Unknown Completed [facility] HIB 4 Dose Schedule Unknown Completed [facility] HEPATITIS A Unknown Completed [facility] HEPATITIS A Unknown Completed [facility] Hep B, Adol or Pedi Dosage Unknown Completed [facility] Hep B, Adol or Pedi Dosage Unknown Completed [facility] Hep B, Adol or Pedi Dosage Unknown Completed [facility] Meningococcal Polysaccharide (groups A, C, Y and W-135) conjugate vaccine (MCV4P) Unknown Completed [facility] MMR Unknown Completed [facility] Polio (IPV/OPV) Unknown Completed [facility] Polio (IPV/OPV) Unknown Completed [facility] Polio (IPV/OPV) Unknown Completed [facility] Polio (IPV/OPV) Unknown Completed [facility] TDAP Unknown Completed [facility] Varicella (varivax)(chicken pox) Unknown Completed [facility] Varicella (varivax)(chicken pox) Unknown Completed [facility] DTAP Unknown Completed [facility] MMR Unknown Completed [facility] Pneumococcal 7 Conjugate, PCV7 (Prevnar7) Unknown Completed [facility] Pneumococcal 7 Conjugate, PCV7 (Prevnar7) Unknown Completed [facility] Influenza Virus Vaccine Quad .5 mL IM 6+ MO (FLUZONE/FLULAVAL/FL UARIX) Unknown Completed [facility] Meningococcal Polysaccharide (groups A, C, Y and W-135) conjugate vaccine (MCV4P) Unknown Completed [facility] Meningococcal B, Recombinant Unknown Completed [facility] Meningococcal B, OMV Unknown Completed [facility] SARS-COV-2 COVID-19 PFIZER VACCINE Unknown Completed [facility] SARS-COV-2 COVID-19 PFIZER VACCINE Unknown Completed [facility] HPV Unknown Completed [facility] HPV Unknown Completed [facility] HPV Unknown Completed [facility] DTAP Unknown Completed [facility] DTAP Unknown Completed [facility] DTAP Unknown Completed [facility] DTAP Unknown Completed [facility] HIB 4 Dose Schedule Unknown Completed [facility] HIB 4 Dose Schedule Unknown Completed [facility] HIB 4 Dose Schedule Unknown Completed [facility] HIB 4 Dose Schedule Unknown Completed [facility] HEPATITIS A Unknown Completed [facility] HEPATITIS A Unknown Completed [facility] Hep B, Adol or Pedi Dosage Unknown Completed [facility] Hep B, Adol or Pedi Dosage Unknown Completed [facility] Hep B, Adol or Pedi Dosage Unknown Completed [facility] Meningococcal Polysaccharide (groups A, C, Y and W-135) conjugate vaccine (MCV4P) Unknown Completed [facility] MMR Unknown Completed [facility] Polio (IPV/OPV) Unknown Completed [facility] Polio (IPV/OPV) Unknown Completed [facility] Polio (IPV/OPV) Unknown Completed [facility] Polio (IPV/OPV) Unknown Completed [facility] TDAP Unknown Completed [facility] Varicella (varivax)(chicken pox) Unknown Completed [facility] Varicella (varivax)(chicken pox) Unknown Completed [facility] DTAP Unknown Completed [facility] MMR Unknown Completed [facility] Pneumococcal 7 Conjugate, PCV7 (Prevnar7) Unknown Completed [facility] Pneumococcal 7 Conjugate, PCV7 (Prevnar7) Unknown Completed [facility] Influenza Virus Vaccine Quad .5 mL IM 6+ MO (FLUZONE/FLULAVAL/FL UARIX) Unknown Completed [facility] Meningococcal Polysaccharide (groups A, C, Y and W-135) conjugate vaccine (MCV4P) Unknown Completed [facility] Meningococcal B, Recombinant Unknown Completed [facility] Meningococcal B, OMV Unknown Completed [facility] SARS-COV-2 COVID-19 PFIZER VACCINE Unknown Completed [facility] SARS-COV-2 COVID-19 PFIZER VACCINE Unknown Completed [facility] HPV Unknown Completed [facility] HPV Unknown Completed [facility] HPV Unknown Completed [facility] DTAP Unknown Completed [facility] DTAP Unknown Completed [facility] DTAP Unknown Completed [facility] DTAP Unknown Completed [facility] HIB 4 Dose Schedule Unknown Completed [facility] HIB 4 Dose Schedule Unknown Completed [facility] HIB 4 Dose Schedule Unknown Completed [facility] HIB 4 Dose Schedule Unknown Completed [facility] HEPATITIS A Unknown Completed [facility] HEPATITIS A Unknown Completed [facility] Hep B, Adol or Pedi Dosage Unknown Completed [facility] Hep B, Adol or Pedi Dosage Unknown Completed [facility] Hep B, Adol or Pedi Dosage Unknown Completed [facility] Meningococcal Polysaccharide (groups A, C, Y and W-135) conjugate vaccine (MCV4P) Unknown Completed [facility] MMR Unknown Completed [facility] Polio (IPV/OPV) Unknown Completed [facility] Polio (IPV/OPV) Unknown Completed [facility] Polio (IPV/OPV) Unknown Completed [facility] Polio (IPV/OPV) Unknown Completed [facility] TDAP Unknown Completed [facility] Varicella (varivax)(chicken pox) Unknown Completed [facility] Varicella (varivax)(chicken pox) Unknown Completed [facility] DTAP Unknown Completed [facility] MMR Unknown Completed [facility] Pneumococcal 7 Conjugate, PCV7 (Prevnar7) Unknown Completed [facility] Pneumococcal 7 Conjugate, PCV7 (Prevnar7) Unknown Completed [facility] Influenza Virus Vaccine Quad .5 mL IM 6+ MO (FLUZONE/FLULAVAL/FL UARIX) Unknown Completed [facility] Meningococcal Polysaccharide (groups A, C, Y and W-135) conjugate vaccine (MCV4P) Unknown Completed [facility] Meningococcal B, Recombinant Unknown Completed [facility] Meningococcal B, OMV Unknown Completed [facility] SARS-COV-2 COVID-19 PFIZER VACCINE Unknown Completed [facility] SARS-COV-2 COVID-19 PFIZER VACCINE Unknown Completed [facility] Vital Signs Vital Name Observation Time Observation Value Comments S ource Systolic blood pressure 2023-04-23 20:49:00 128 mm[Hg] [facility] Diastolic blood pressure 2023-04-23 20:49:00 88 mm[Hg] [facility] Heart rate 2023-04-23 20:49:00 105 /min [facility] Body temperature 2023-04-23 20:49:00 37.33 [facility] Body height 2023-04-23 20:49:00 160 cm [facility] Body weight 2023-04-23 20:49:00 87.635 kg [facility] BMI 2023-04-23 20:49:00 34.22 kg/m2 [facility] Systolic blood pressure 2022-11-13 14:04:00 134 mm[Hg] [facility] Diastolic blood pressure 2022-11-13 14:04:00 76 mm[Hg] [facility] Heart rate 2022-11-13 14:04:00 76 /min [facility] 2022-11-13 14:04:00 37.22 [facility] Body height 2022-11-13 14:04:00 160 [facility] 2022-11-13 14:04:00 82.283 kg Univ [facility] BMI 2022-11-13 14:04:00 32.13 kg/m2 [facility] Systolic blood pressure 2022-10-28 14:04:00 123 mm[Hg] [facility] Diastolic blood pressure 2022-10-28 14:04:00 83 mm[Hg] [facility] Heart rate 2022-10-28 14:04:00 68 /min [facility] Body temperature 2022-10-28 14:04:00 36.94 [facility] Respiratory rate 2022-10-28 14:04:00 18 /min [facility] Body height 2022-10-28 14:04:00 160 cm [facility] Body weight 2022-10-28 14:04:00 82.101 kg [facility] BMI 2022-10-28 14:04:00 32.06 kg/m2 [facility] Systolic blood pressure 2022-08-11 16:19:00 110 mm[Hg] [facility] Diastolic blood pressure 2022-08-11 16:19:00 77 mm[Hg] [facility] Heart rate 2022-08-11 16:19:00 89 /min [facility] Body temperature 2022-08-11 16:19:00 37.33 [facility] Respiratory rate 2022-08-11 16:19:00 20 /min [facility] Body height 2022-08-11 16:19:00 160 cm [facility] Body weight 2022-08-11 16:19:00 78.075 kg [facility] BMI 2022-08-11 16:19:00 30.49 kg/m2 [facility] Oxygen saturation in Arterial blood by Pulse oximetry 2022-08-11 16:19:00 98 /min [facility] Systolic blood pressure 2022-05-27 20:21:00 121 mm[Hg] [facility] Diastolic blood pressure 2022-05-27 20:21:00 69 mm[Hg] [facility] Heart rate 2022-05-27 20:21:00 72 /min [facility] Body temperature 2022-05-27 20:21:00 37.11 [facility] Respiratory rate 2022-05-27 20:21:00 17 /min [facility] Body height 2022-05-27 20:21:00 157.5 cm [facility] Body weight 2022-05-27 20:21:00 84.55 kg [facility] BMI 2022-05-27 20:21:00 34.09 kg/m2 [facility] Systolic blood pressure 2022-02-05 19:09:00 137 mm[Hg] [facility] Diastolic blood pressure 2022-02-05 19:09:00 79 mm[Hg] [facility] Heart rate 2022-02-05 19:09:00 94 /min [facility] Body temperature 2022-02-05 19:09:00 37.06 [facility] Respiratory rate 2022-02-05 19:09:00 18 /min [facility] Body height 2022-02-05 19:09:00 157.5 cm [facility] Body weight 2022-02-05 19:09:00 84.732 kg [facility] BMI 2022-02-05 19:09:00 34.17 kg/m2 [facility] Systolic blood pressure 2022-01-31 15:02:00 122 mm[Hg] [facility] Diastolic blood pressure 2022-01-31 15:02:00 77 mm[Hg] [facility] Heart rate 2022-01-31 15:02:00 67 /min [facility] Body temperature 2022-01-31 15:02:00 37.11 [facility] Body height 2022-01-31 15:02:00 157.5 cm [facility] Body weight 2022-01-31 15:02:00 82.555 kg [facility] BMI 2022-01-31 15:02:00 33.29 kg/m2 [facility] Systolic blood pressure 2022-01-02 14:12:00 109 mm[Hg] [facility] Diastolic blood pressure 2022-01-02 14:12:00 67 mm[Hg] [facility] Heart rate 2022-01-02 14:12:00 58 /min [facility] Body temperature 2022-01-02 14:12:00 37.06 [facility] Respiratory rate 2022-01-02 14:12:00 18 /min [facility] Body height 2022-01-02 14:12:00 157.5 cm [facility] Body weight 2022-01-02 14:12:00 80.74 kg [facility] BMI 2022-01-02 14:12:00 32.56 kg/m2 [facility] Systolic blood pressure 2021-01-06 02:00:00 149 mm[Hg] [facility] Diastolic blood pressure 2021-01-06 02:00:00 97 mm[Hg] [facility] Heart rate 2021-01-06 02:00:00 101 /min [facility] Respiratory rate 2021-01-06 02:00:00 17 /min [facility] Oxygen saturation in Arterial blood by Pulse oximetry 2021-01-06 02:00:00 100 /min [facility] Body temperature 2021-01-06 01:46:00 36.06 [facility] Body height 2021-01-06 01:46:00 157.5 cm [facility] Body weight 2021-01-06 01:46:00 81.647 kg [facility] BMI 2021-01-06 01:46:00 32.92 kg/m2 [facility] Body mass index (BMI) [Percentile] Per age and sex 2021-01-06 01:46:00 96.57 % [facility] Systolic blood pressure 2020-04-02 17:35:00 116 mm[Hg] [facility] Diastolic blood pressure 2020-04-02 17:35:00 72 mm[Hg] [facility] Heart rate 2020-04-02 16:53:00 73 /min [facility] Body temperature 2020-04-02 16:53:00 36.44 [facility] Respiratory rate 2020-04-02 16:53:00 18 /min [facility] Body height 2020-04-02 16:53:00 159 cm [facility] Body weight 2020-04-02 16:53:00 82.101 kg [facility] BMI 2020-04-02 16:53:00 32.48 kg/m2 [facility] Oxygen saturation in Arterial blood by Pulse oximetry 2020-04-02 16:53:00 98 /min [facility] Systolic blood pressure 2020-04-02 17:35:00 116 mm[Hg] [facility] Diastolic blood pressure 2020-04-02 17:35:00 72 mm[Hg] [facility] Heart rate 2020-04-02 16:53:00 73 /min [facility] Body temperature 2020-04-02 16:53:00 36.44 [facility] Respiratory rate 2020-04-02 16:53:00 18 /min [facility] Body height 2020-04-02 16:53:00 159 cm [facility] Body weight 2020-04-02 16:53:00 82.101 kg [facility] BMI 2020-04-02 16:53:00 32.48 kg/m2 [facility] Oxygen saturation in Arterial blood by Pulse oximetry 2020-04-02 16:53:00 98 /min [facility] Systolic blood pressure 2020-02-24 19:17:00 121 mm[Hg] [facility] Diastolic blood pressure 2020-02-24 19:17:00 77 mm[Hg] [facility] Heart rate 2020-02-24 19:16:00 84 /min [facility] Body temperature 2020-02-24 19:16:00 36.56 [facility] Respiratory rate 2020-02-24 19:16:00 18 /min [facility] Body weight 2020-02-24 19:16:00 83.598 kg [facility] Oxygen saturation in Arterial blood by Pulse oximetry 2020-02-24 19:16:00 100 /min [facility] Systolic blood pressure 2020-01-30 21:13:00 123 mm[Hg] [facility] Diastolic blood pressure 2020-01-30 21:13:00 70 mm[Hg] [facility] Heart rate 2020-01-30 21:13:00 83 /min [facility] Body temperature 2020-01-30 21:13:00 37.11 [facility] Respiratory rate 2020-01-30 21:13:00 18 /min [facility] Body height 2020-01-30 21:13:00 157.5 cm [facility] Body weight 2020-01-30 21:13:00 85.276 kg [facility] BMI 2020-01-30 21:13:00 34.39 kg/m2 [facility] Systolic blood pressure 2020-01-10 20:41:00 129 mm[Hg] [facility] Diastolic blood pressure 2020-01-10 20:41:00 72 mm[Hg] [facility] Heart rate 2020-01-10 20:41:00 98 /min [facility] Body temperature 2020-01-10 20:41:00 36.72 [facility] Respiratory rate 2020-01-10 20:41:00 18 /min [facility] Body height 2020-01-10 20:41:00 157.5 cm [facility] Body weight 2020-01-10 20:41:00 85.276 kg [facility] BMI 2020-01-10 20:41:00 34.39 kg/m2 [facility] Body temperature 2019-10-12 19:39:00 35.72 [facility] Body height 2019-10-12 19:39:00 159 cm [facility] Body weight 2019-10-12 19:39:00 82.6 kg [facility] BMI 2019-10-12 19:39:00 32.67 kg/m2 [facility] Systolic blood pressure 2019-10-07 18:10:00 121 mm[Hg] [facility] Diastolic blood pressure 2019-10-07 18:10:00 79 mm[Hg] [facility] Heart rate 2019-10-07 18:10:00 77 /min [facility] Body temperature 2019-10-07 18:10:00 36.89 [facility] Respiratory rate 2019-10-07 18:10:00 18 /min [facility] Body height 2019-10-07 18:10:00 157.5 cm [facility] Body weight 2019-10-07 18:10:00 81.647 kg [facility] BMI 2019-10-07 18:10:00 32.92 kg/m2 [facility] Systolic blood pressure 2019-10-06 20:18:00 123 mm[Hg] [facility] Diastolic blood pressure 2019-10-06 20:18:00 86 mm[Hg] [facility] Heart rate 2019-10-06 20:18:00 96 /min [facility] Body temperature 2019-10-06 20:18:00 36.78 [facility] Respiratory rate 2019-10-06 20:18:00 16 /min [facility] Body height 2019-10-06 20:18:00 157.5 cm [facility] Body weight 2019-10-06 20:18:00 80.786 kg [facility] BMI 2019-10-06 20:18:00 32.57 kg/m2 [facility] Oxygen saturation in Arterial blood by Pulse oximetry 2019-10-06 20:18:00 98 /min [facility] Systolic blood pressure 2019-08-04 18:52:00 129 mm[Hg] [facility] Diastolic blood pressure 2019-08-04 18:52:00 78 mm[Hg] [facility] Heart rate 2019-08-04 18:52:00 86 /min [facility] Body temperature 2019-08-04 18:52:00 37.22 [facility] Respiratory rate 2019-08-04 18:52:00 18 /min [facility] Body height 2019-08-04 18:52:00 157.5 cm [facility] Body weight 2019-08-04 18:52:00 84.369 kg [facility] BMI 2019-08-04 18:52:00 34.02 kg/m2 [facility] Systolic blood pressure 2019-05-23 21:28:00 121 mm[Hg] [facility] Diastolic blood pressure 2019-05-23 21:28:00 77 mm[Hg] [facility] Heart rate 2019-05-23 21:28:00 80 /min [facility] Body temperature 2019-05-23 21:28:00 37.39 [facility] Respiratory rate 2019-05-23 21:28:00 18 /min [facility] Body height 2019-05-23 21:28:00 158.5 cm [facility] Body weight 2019-05-23 21:28:00 85.095 kg [facility] BMI 2019-05-23 21:28:00 33.87 kg/m2 [facility] Oxygen saturation in Arterial blood by Pulse oximetry 2019-05-23 21:28:00 100 /min [facility] Systolic blood pressure 2019-05-16 21:51:00 123 mm[Hg] [facility] Diastolic blood pressure 2019-05-16 21:51:00 73 mm[Hg] [facility] Heart rate 2019-05-16 21:51:00 72 /min [facility] Body temperature 2019-05-16 21:51:00 36.78 [facility] Respiratory rate 2019-05-16 21:51:00 18 /min [facility] Body height 2019-05-16 21:51:00 157.5 cm [facility] Body weight 2019-05-16 21:51:00 85.276 kg [facility] BMI 2019-05-16 21:51:00 34.39 kg/m2 [facility] Body temperature 2019-05-03 20:09:00 36.83 [facility] Body height 2019-05-03 20:09:00 157.5 cm [facility] Body weight 2019-05-03 20:09:00 82.2 kg [facility] BMI 2019-05-03 20:09:00 33.14 kg/m2 [facility] Body temperature 2019-03-22 21:03:00 37 [facility] Body weight 2019-03-22 21:03:00 83.4 kg [facility] Systolic blood pressure 2018-11-12 13:21:00 120 mm[Hg] [facility] Diastolic blood pressure 2018-11-12 13:21:00 78 mm[Hg] [facility] Heart rate 2018-11-12 13:21:00 72 /min [facility] Body temperature 2018-11-12 13:21:00 37.83 [facility] Respiratory rate 2018-11-12 13:21:00 18 /min [facility] Body weight 2018-11-12 13:21:00 76.023 kg [facility] BMI 2018-11-12 13:21:00 29.69 kg/m2 [facility] Systolic blood pressure 2018-11-11 13:42:00 123 mm[Hg] [facility] Diastolic blood pressure 2018-11-11 13:42:00 81 mm[Hg] [facility] Heart rate 2018-11-11 13:42:00 64 /min [facility] Body temperature 2018-11-11 13:42:00 36.94 [facility] Respiratory rate 2018-11-11 13:42:00 18 /min [facility] Body height 2018-11-11 13:42:00 160 cm [facility] Body weight 2018-11-11 13:42:00 75.297 kg [facility] BMI 2018-11-11 13:42:00 29.41 kg/m2 [facility] Systolic blood pressure 2018-10-07 20:01:00 123 mm[Hg] [facility] Diastolic blood pressure 2018-10-07 20:01:00 80 mm[Hg] [facility] Heart rate 2018-10-07 20:01:00 97 /min [facility] Body temperature 2018-10-07 20:01:00 36.56 [facility] Respiratory rate 2018-10-07 20:01:00 16 /min [facility] Body height 2018-10-07 20:01:00 158.7 cm [facility] Body weight 2018-10-07 20:01:00 74.844 kg [facility] BMI 2018-10-07 20:01:00 29.72 kg/m2 [facility] Oxygen saturation in Arterial blood by Pulse oximetry 2018-10-07 20:01:00 99 /min [facility] Procedures Procedure Date / Time Performed Performing Clinician Source US OB TRANSVAGINAL 2023-04-23 23:35:33 Alexandria Whitmore [facility] ASSIGNMENT OF BENEFITS 2023-04-23 20:27:38 Doctor Unassigned, [place] [facility] POCT TEST 2023-04-23 00:00:00 Alexandria Whitmore [facility] POCT URINALYSIS W/O SPECIFIC GRAVITY 2023-04-23 00:00:00 Alexandria Whitmore [facility] BI ULTRASOUND BREAST COMPLET E RIGHT 2022-11-12 16:39:22 Rolan Casarez [facility] POCT MOLECULAR STREP 2022-08-11 16:25:00 Unknown, Attending [facility] POCT URINALYSIS W/O SPECIFIC GRAVITY 2022-05-27 20:36:[address] [facility] PATIENT FINANCIAL POLICY 2022-05-27 20:07:26 Doctor Unassigned, [place] [facility] BI ULTRASOUND BREAST COMPLET E BILATERAL 2022-02-21 19:23:00 Rolan Casarez [facility] US PELVIS COMPLETE WITH TRANSVAGINAL 2022-02-21 17:55:34 Rolan Casarez [facility] DISCLOSURE AND CONSENT, MEDICAL AND SURGICAL PROCEDURES 2022-01-31 06:01:00 Doctor Unassigned, [place] [facility] POCT TEST 2022-01-31 00:00:00 Brooklyn Garduno [facility] ASSIGNMENT OF BENEFITS 2022-01-02 14:07:23 Doctor Unassigned, [place] [facility] POCT TEST 2021-01-06 02:44:00 Roma Adame [facility] URINALYSIS 2021-01-06 02:34:00 Roma Adame [facility] URINE DRUG (IMMUNOASSAY) - COMPREHENSIVE DRUG SCREEN W/O REFLEX 2021-01-06 02:34:00 Roma Adame [facility] LACTIC ACID WHOLE BLOOD 2021-01-06 02:23:00 Roma Adame [facility] COMP. METABOLIC PANEL (70812) 2021-01-06 02:03:00 Roma Adame [facility] ETHANOL 2021-01-06 02:03:00 Roma Adame [facility] CBC WITH DIFF 2021-01-06 02:03:00 Roma Adame [facility] MENINGOCOCCAL B VACCINE, OMV , 2 DOSE, IM 2020-04-16 16:43:42 Karen Tamayo [facility] POCT RAPID STREP SCREEN FOR GROUP A 2020-02-24 19:24:00 Karen Tamayo [facility] EXTERNAL PROVIDER RECORDS 2019-10-13 05:01:00 Doctor Unassigned, [place] [facility] PEDI ELECTROENCEPHALOGRAM 2019-10-12 00:00:00 Jasmyn Arreguin [facility] DISCLOSURE AND CONSENT, MEDICAL AND SURGICAL PROCEDURES 2019-10-07 05:01:00 Doctor Unassigned, [place] [facility] AUTHORIZATION TO RELEASE PHI TO [facility] 2019-10-06 05:01:00 Doctor Unassigned, [place] [facility] BI ULTRASOUND BREAST LIMITED LEFT 2019-08-16 13:29:57 Alexandria Whitmore [facility] CONSENT FOR CONTRACEPTION 2019-08-04 05:01:00 Doctor Unassigned, [place] [facility] POCT TEST 2019-08-04 00:00:00 Alexandria Whitmore [facility] POCT URINALYSIS W/O SPECIFIC GRAVITY 2019-08-04 00:00:00 Alexandria Whitmore [facility] AGREEMENTS AUTHORIZATIONS AN D IRREVOCABLE ASSIGNMENTS (FORM 2001) 2019-06-16 05:01:00 Doctor Unassigned, [place] [facility] CONSENT/REFUSAL FOR DIAGNOSI S AND TREATMENT 2019-05-03 19:11:33 Doctor Unassigned, [place] [facility] URINE CULTURE 2019-03-22 21:53:00 Demetrius Morgan [facility] CONSENT FOR DEPO-PROVERA 2018-11-11 05:01:00 Doctor Unassigned, [place] [facility] MENINGOCOCCAL B VACCINE(TRUMENBA) 2 OR 3 DOSE SERIES, IM 2018-10-07 20:59:48 Karen Tamayo [facility] MENACTRA (MCV4-D) VACCINE 2018-10-07 20:59:21 Karen Tamayo [facility] Encounters Start Date/Time End Date/Time Encounter Type Admission Type Attending [facility] Care Facility Care Department Encounter ID Source 2021-01-22 07:20:19 Emergency [facility] [id number] [facility] 2023-05-07 10:00:00 2023-05-07 10:00:00 Outpatient R ALEXANDRIA WHITMORE [facility] [id number] [facility] 2023-05-04 00:00:00 2023-05-04 00:00:00 Telephone Alexandria Whitmore [facility] 1.2.840.114 350.1.13.10 4.2.7.2.686 [id number] [facility] 2023-04-23 14:30:00 2023-04-23 15:15:09 Outpatient R ALEXANDRIA WHITMORE [facility] [id number] [facility] 2023-04-23 14:30:00 2023-04-23 15:15:09 Office Visit Alexandria Whitmore [facility] NICOLE ANG [facility] 1..114 350.1.13.10 4.2.7.2.686 [id number] [facility] 2023-04-23 00:00:00 2023-04-23 00:00:00 Orders Only Doctor Unassigned, [place] [facility] 1.0.114 350.1.13.10 4.2.7.2.686 [id number] [facility] 2023-04-08 14:00:00 2023-04-08 14:00:00 Outpatient ALEXANDRIA LOYOLA [facility] [id number] [facility] 2023-01-05 08:30:00 2023-01-05 08:30:00 Outpatient ROLAN PALOMINO [facility] [id number] [facility] 2022-12-02 10:00:00 2022-12-02 12:30:57 Outpatient MILAN PATEL [facility] [id number] [facility] 2022-12-02 10:00:00 2022-12-02 12:30:57 Office Visit Leslie Carreon Joseph W [facility] 1.0.114 350.1.13.10 4.2.7.2.686 [id number] [facility] 2022-12-01 00:00:00 2022-12-01 00:00:00 Telephone Leslie Carreon [facility] 1..114 350.1.13.10 4.2.7.2.686 [id number] [facility] 2022-11-26 00:00:00 2022-11-26 00:00:00 Telephone Corrine Llanos [facility] 1.840.114 350.1.13.10 4.2.7.2.686 [id number] [facility] 2022-11-18 09:00:00 2022-11-18 14:20:05 Outpatient R HERMELINDO [facility] [id number] [facility] 2022-11-18 09:00:00 2022-11-18 14:20:05 Office Visit Leslie Carreon [facility] .84.114 350.1.13.10 4.2.7.2.686 [id number] [facility] 2022-11-18 10:15:00 2022-11-18 10:30:00 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 Visit Lab, [facility] Hermelindo [facility] .84.114 350.1.13.10 4.2.7.2.686 [id number] [facility] 2022-11-13 09:00:00 2022-11-13 09:31:00 Outpatient R ALEXANDRIA WHITMORE [facility] [id number] [facility] 2022-11-13 09:00:00 2022-11-13 09:31:00 Office Visit Alexandria Whitmore [facility] BU[facility] 1..840.114 350.1.13.10 4.2.7.2.686 [id number] [facility] 2022-11-13 00:00:00 2022-11-13 00:00:00 Letter (Out) Alexandria Whitmore [facility] .840.114 350.1.13.10 4.2.7.2.686 [id number] [facility] 2022-11-12 10:15:25 2022-11-12 23:59:00 Outpatient R HERMELINDO [facility] [id number] [facility] 2022-11-12 10:15:25 2022-11-12 23:59:00 Hospital Encounter Rolan Casarez [facility] 1.840.114 350.1.13.10 4.2.7.2.686 [id number] [facility] 2022-10-28 09:30:00 2022-10-28 09:59:16 [facility] [id number] [facility] 2022-10-28 09:30:00 2022-10-28 09:59:16 Office Visit Hermelindo [facility] BUILDING 1..840.114 350.1.13.10 4.2.7.2.686 [id number] [facility] 2022-10-28 00:00:00 2022-10-28 00:00:00 Letter (Out) Hermelindo [facility] BUILDING 1..840.114 350.1.13.10 4.2.7.2.686 [id number] [facility] 2022-08-11 11:00:00 2022-08-11 11:47:20 Outpatient R MANNY CARMEN [facility] [id number] [facility] 2022-08-11 11:00:00 2022-08-11 11:47:20 Urgent Care Manny Carmen Unknown, Attending [facility] 1.2.840.114 350.1.13.10 4.2.7.2.686 [id number] [facility] 2022-06-16 00:00:00 2022-06-16 00:00:00 Telephone Hermelindo [facility] BUILDING 1..840.114 350.1.13.10 4.2.7.2.686 [id number] [facility] 2022-06-13 14:05:25 2022-06-13 23:59:00 Out[facility] [id number] [facility] 2022-06-13 14:05:25 2022-06-13 23:59:00 [facility] 1.2.840.114 350.1.13.10 4.2.7.2.686 [id number] [facility] 2022-06-06 00:00:00 2022-06-06 00:00:00 Outpatient R MOESARAH [facility] [id number] [facility] 2022-05-27 14:00:00 2022-05-27 15:06:27 Outpatient R HERMELINDO [facility] [id number] [facility] 2022-05-27 14:00:00 2022-05-27 15:06:27 Office Visit Donyaprincess [facility] 1.2840.114 350.1.13.10 4.2.7.2.686 [id number] [facility] 2022-05-27 00:00:00 2022-05-27 00:00:00 Orders Only Doctor Unassigned, [place] [facility] 1.2.840.114 350.1.13.10 4.2.7.2.686 [id number] [facility] 2022-02-21 12:00:22 2022-02-21 23:59:00 [facility] 1.2840.114 350.1.13.10 4.2.7.2.686 [id number] [facility] 2022-02-21 10:48:03 2022-02-21 11:59:00 Outpatient R HERMELINDO [facility] [id number] [facility] 2022-02-21 10:48:03 2022-02-21 11:59:00 Hospital Encounter Rolan Casarez [facility] 1.840.114 350.1.13.10 4.2.7.2.686 [id number] [facility] 2022-02-05 13:00:00 2022-02-05 13:36:35 Outpatient R ADBROOKLYN HORN [facility] [id number] [facility] 2022-02-05 13:00:00 2022-02-05 13:36:35 Office Visit AdBrooklyn horn [facility] 1.2.840.114 350.1.13.10 4.2.7.2.686 [id number] [facility] 2022-02-05 00:00:00 2022-02-05 00:00:00 Telephone AdbeatriceBrooklyn [facility] 1.2.840.114 350.1.13.10 4.2.7.2.686 [id number] [facility] 2022-02-05 00:00:00 2022-02-05 00:00:00 Letter (Out) AdBrooklyn horn [facility] 1.2.840.114 350.1.13.10 4.2.7.2.686 [id number] [facility] 2022-01-31 08:30:00 2022-01-31 09:33:19 [facility] [id number] [facility] 2022-01-31 08:30:00 2022-01-31 09:33:19 Office Visit AdBrooklyn horn [facility] 1.2.840.114 350.1.13.10 4.2.7.2.686 [id number] [facility] 2022-01-31 00:00:00 2022-01-31 00:00:00 Orders Only Doctor Unassigned, [place] [facility] 1.114 350.1.13.10 4.2.7.2.686 [id number] [facility] 2022-01-31 00:00:00 2022-01-31 00:00:00 Letter (Out) Laureen Brooklyn L [facility] 1.84.114 350.1.13.10 4.2.7.2.686 [id number] [facility] 2022-01-13 09:00:00 2022-01-13 09:00:00 Outpatient MILAN PATEL [facility] [id number] [facility] 2022-01-13 00:00:00 2022-01-13 00:00:00 Telephone Liu Carlton [facility] [place] 1.84.114 350.1.13.10 4.2.7.2.686 [id number] [facility] 2022-01-10 13:00:00 2022-01-10 13:00:00 Outpatient HAYLEY BRYANT [facility] [id number] [facility] 2022-01-02 10:45:00 2022-01-02 11:00:00 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 Visit 2, Adc Lab Hermelindo Rolan [facility] 1.840.114 350.1.13.10 4.2.7.2.686 [id number] [facility] 2022-01-02 09:30:00 2022-01-02 10:12:42 Outpatient [facility] [facility] [id number] [facility] 2022-01-02 09:30:00 2022-01-02 10:12:42 Office Visit Hermelindo [facility] 1.840.114 350.1.13.10 4.2.7.2.686 [id number] 134 [id number] [facility] 2022-01-02 00:00:00 2022-01-02 00:00:00 Orders Only Doctor Unassigned, [place] [facility] 1.2.840.114 350.1.13.10 4.2.7.2.686 [id number] [facility] 2021-04-03 10:40:00 2021-04-03 10:40:00 Outpatient KAREN ZAMORANO [facility] [id number] [facility] 2021-02-22 00:00:00 2021-02-22 00:00:00 Telephone Alena Erickson [facility] 1.2.840.114 350.1.13.10 4.2.7.2.686 [id number] [facility] 2021-02-12 00:00:00 2021-02-12 00:00:00 Telephone Rolan Casarez [facility] 1.2.840.114 350.1.13.10 4.2.7.2.686 [id number] [facility] 2021-01-05 20:38:00 2021-01-05 22:55:00 Emergency Roma Adame [facility] 1.2.840.114 350.1.13.10 4.2.7.2.686 [id number] [facility] 2020-08-23 15:00:00 2020-08-23 15:00:00 Outpatient ROLAN PALOMINO [facility] [id number] [facility] 2020-08-06 14:00:00 2020-08-06 14:00:00 Outpatient ROLAN PALOMINO [facility] [id number] [facility] 2020-07-06 11:20:00 2020-07-06 11:20:34 Outpatient R EMELY CANALES [facility] [id number] [facility] 2020-06-15 11:20:00 2020-06-15 12:18:13 Outpatient R EMELY CANALES [facility] [id number] [facility] 2020-06-12 00:00:00 2020-06-12 00:00:00 Patient Outreach Chinmay Aly [facility] 1.2.840.114 350.1.13.10 4.2.7.2.686 [id number] 2020-06-12 00:00:00 2020-06-12 00:00:00 Patient Outreach Chinmay Aly [facility] 1.2.840.114 350.1.13.10 4.2.7.2.686 [id number] [facility] 2020-04-25 00:00:00 2020-04-25 00:00:00 Telephone Alexandria Whitmore [facility] 1.2.840.114 350.1.13.10 4.2.7.2.686 [id number] 134 [id number] 2020-04-25 00:00:00 2020-04-25 00:00:00 Telephone Alexandria Whitmore [facility] 1.2.840.114 350.1.13.10 4.2.7.2.686 [id number] 134 [id number] [facility] 2020-04-16 10:23:22 2020-04-16 10:43:22 Nurse Visit Nurse, Alena Timmons [facility] 1.2.840.114 350.1.13.10 4.2.7.2.686 [id number] [facility] 2020-04-16 10:20:00 2020-04-16 10:20:00 Outpatient R [facility] [id number] [facility] 2020-04-03 11:08:11 2020-04-03 11:23:11 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 Visit 2, Adc Lab Alena Erickson [facility] nal Building 1.2.840.114 350.1.13.10 4.2.7.2.686 [id number] [facility] 2020-04-03 11:00:00 2020-04-03 11:00:00 Outpatient R ALENA ERICKSON [facility] [id number] [facility] 2020-04-02 11:30:50 2020-04-02 13:18:47 Billing Fabio Artur [facility] Building 1.2.840.114 350.1.13.10 4.2.7.2.686 [id number] [facility] 2020-04-02 10:47:55 2020-04-02 11:50:03 Office Visit Karen Tamayo [facility] Building 1.2.840.114 350.1.13.10 4.2.7.2.686 [id number] 2020-04-02 10:47:55 2020-04-02 11:50:03 [facility] 1.2.840.114 350.1.13.10 4.2.7.2.686 [id number] [facility] 2020-04-02 10:40:00 2020-04-02 10:40:00 [facility] [id number] [facility] 2020-04-02 00:00:00 2020-04-02 00:00:00 Letter (Out) Alena Erickson [facility] Building 1.2.840.114 350.1.13.10 4.2.7.2.686 [id number] [facility] 2020-02-24 13:11:12 2020-02-24 14:13:29 [facility] 1.2.840.114 350.1.13.10 4.2.7.2.686 [id number] [facility] 2020-02-24 13:00:00 2020-02-24 13:00:00 Outpatient R KAREN TAMAYO [facility] [id number] [facility] 2020-02-01 13:00:00 2020-02-01 13:00:00 Outpatient R [facility] [id number] [facility] 2020-01-30 14:47:20 2020-01-30 15:35:45 Office Visit Alexandria Whitmore Skyler [facility] Building 1.2.840.114 350.1.13.10 4.2.7.2.686 [id number] [facility] 2020-01-30 15:00:00 2020-01-30 15:00:00 Outpatient R ALEXANDRIA WHITMORE [facility] [id number] [facility] 2020-01-10 14:35:02 2020-01-10 16:02:32 Office Visit Donyaprincess Rolan [facility] Building 1.2.840.114 350.1.13.10 4.2.7.2.686 [id number] [facility] 2020-01-10 14:45:00 2020-01-10 14:45:00 Outpatient R HERMELINDO ROLAN [facility] [id number] [facility] 2019-12-15 10:45:00 2019-12-15 10:45:00 Outpatient R ROLAN CASAREZ [facility] [id number] [facility] 2019-12-15 00:00:00 2019-12-15 00:00:00 Telephone Alena Erickson [facility] [employer] [facility] 1.2840.114 350.1.13.10 4.2.7.2.686 [id number] [facility] 2019-11-30 15:00:00 2019-11-30 15:00:00 Outpatient R [facility] [id number] [facility] 2019-11-18 09:30:00 2019-11-18 09:30:00 Outpatient R ROLAN CASAREZ [facility] [id number] [facility] 2019-11-14 00:00:00 2019-11-14 00:00:[address] [facility] 1.2.114 350.1.13.10 4.2.7.2.686 [id number] [facility] 2019-10-13 00:00:00 2019-10-13 00:00:00 Orders Only Doctor Unassigned, [place] [facility] 1.2840.114 350.1.13.10 4.2.7.2.686 [id number] [facility] 2019-10-12 12:44:00 2019-10-12 23:59:00 Hospital Encounter Jasmyn Arreguin [employer]eg[employer]apna Neuro [facility] [place] 1.2840.114 350.1.13.10 4.2.7.2.686 [id number] [facility] 2019-10-12 12:44:33 2019-10-12 13:44:33 Office Visit Jasmyn Arreguin [facility] [place] 1.2840.114 350.1.13.10 4.2.7.2.686 [id number] [facility] 2019-10-12 13:00:00 2019-10-12 13:00:00 Outpatient R JASMYN ARREGUIN [facility] [id number] [facility] 2019-10-07 12:46:26 2019-10-07 13:32:19 Office Visit Alexandria Whitmore [facility] 1.2.840.114 350.1.13.10 4.2.7.2.686 [id number] [facility] 2019-10-07 13:00:00 2019-10-07 13:00:00 Outpatient R ALEXANDRIA WHITMORE [facility] [id number] [facility] 2019-10-07 00:00:00 2019-10-07 00:00:00 Orders Only Doctor Unassigned, [place] [facility] 1.2.840.114 350.1.13.10 4.2.7.2.686 [id number] [facility] 2019-10-06 14:55:54 2019-10-06 17:13:05 Office Visit Dre Alena Román [facility] 1..840.114 350.1.13.10 4.2.7.2.686 [id number] [facility] 2019-10-06 15:00:00 2019-10-06 15:00:00 Outpatient R ALENA ERICKSON [facility] [id number] [facility] 2019-10-06 00:00:00 2019-10-06 00:00:00 Orders Only Doctor Unassigned, [place] [facility] 1.2.840.114 350.1.13.10 4.2.7.2.686 [id number] [facility] 2019-10-05 00:00:00 2019-10-05 00:00:00 Telephone Rolan Casarez [facility] 1..840.114 350.1.13.10 4.2.7.2.686 [id number] [facility] 2019-09-28 15:30:00 2019-09-28 15:30:00 Outpatient R [facility] [id number] [facility] 2019-09-15 15:00:00 2019-09-15 15:00:00 Outpatient R ROLAN CASAREZ [facility] [id number] [facility] 2019-08-31 15:00:00 2019-08-31 15:00:00 Outpatient R [facility] [id number] [facility] 2019-08-16 07:38:13 2019-08-16 23:59:00 Outpatient R WHITMOREELINAEN [facility] [id number] [facility] 2019-08-16 07:38:00 2019-08-16 23:59:00 Hospital Encounter Alexandria Whitmore [facility] 1.2.840.114 350.1.13.10 4.2.7.2.686 [id number] [facility] 2019-08-08 00:00:00 2019-08-08 00:00:00 Case Management Rolan Casarez [facility] 1.2.840.114 350.1.13.10 4.2.7.2.686 [id number] [facility] 2019-08-04 13:33:06 2019-08-04 14:36:24 Office Visit Alexandria Whitmore [facility] 1.2.840.114 350.1.13.10 4.2.7.2.686 [id number] [facility] 2019-08-04 13:30:00 2019-08-04 13:30:00 Outpatient R ALEXANDRIA WHITMORE [facility] [id number] [facility] 2019-08-04 00:00:00 2019-08-04 00:00:00 Orders Only Doctor Unassigned, [place] [facility] 1.2.840.114 350.1.13.10 4.2.7.2.686 [id number] [id number] [facility] 2019-07-19 00:00:00 2019-07-19 00:00:00 Telephone Richard Alexandria Holland [facility] 1.2.840.114 350.1.13.10 4.2.7.2.686 [id number] 134 [id number] [facility] 2019-06-16 11:24:51 2019-06-16 11:39:51 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 Visit 2, Adc Lab Alena Erickson [facility] 1.2.840.114 350.1.13.10 4.2.7.2.686 [id number] [facility] 2019-06-16 11:15:00 2019-06-16 11:15:00 Outpatient ALENA BLANTON [facility] [id number] [facility] 2019-06-16 00:00:00 2019-06-16 00:00:00 Orders Only Doctor Unassigned, [place] [facility] 1..840.114 350.1.13.10 4.2.7.2.686 [id number] [facility] 2019-06-16 00:00:00 2019-06-16 00:00:00 Telephone Alena Erickson [facility] 1.2.840.114 350.1.13.10 4.2.7.2.686 [id number] [facility] 2019-06-15 10:45:00 2019-06-15 10:45:00 Outpatient ROLAN PALOMINO [facility] [id number] [facility] 2019-06-15 08:26:10 2019-06-15 08:56:10 Telemedici ne Micky Casarez Rolan [facility] 1.2.840.114 350.1.13.10 4.2.7.2.686 [id number] [facility] 2019-06-09 08:45:00 2019-06-09 08:45:00 Outpatient ROLAN PALOMINO [facility] [id number] [facility] 2019-06-02 15:45:00 2019-06-02 15:45:00 Outpatient R ROLAN CASAREZ [facility] [id number] [facility] 2019-05-31 13:45:00 2019-05-31 13:45:00 Outpatient R [facility] [id number] [facility] 2019-05-23 14:21:31 2019-05-23 16:27:38 Office Visit Alena Erickson [facility] Building 1..840.114 350.1.13.10 4.2.7.2.686 [id number] [facility] 2019-05-23 14:30:00 2019-05-23 14:30:00 Outpatient R ALENA ERICKSON [facility] [id number] [facility] 2019-05-23 00:00:00 2019-05-23 00:00:00 Letter (Out) Alena Erickson [facility] 1..840.114 350.1.13.10 4.2.7.2.686 [id number] [facility] 2019-05-16 15:19:14 2019-05-16 15:52:21 Nurse Visit Nurse, [facility] Alexandria Whitmore [facility] Building 1..840.114 350.1.13.10 4.2.7.2.686 [id number] [facility] 2019-05-16 15:30:00 2019-05-16 15:30:00 Outpatient R ALEXANDRIA WHITMORE [facility] [id number] [facility] 2019-05-03 13:12:12 2019-05-03 14:43:58 Office Visit Urology, [facility] Demetrius Rogel [facility] 1..840.114 350.1.13.10 4.2.7.2.686 [id number] [facility] 2019-05-03 00:00:00 2019-05-03 00:00:00 Orders Only Doctor Unassigned, [place] [facility] 1.2.840.114 350.1.13.10 4.2.7.2.686 [id number] [facility] 2019-05-03 00:00:00 2019-05-03 00:00:00 Letter (Out) [facility] 1.2.840.114 350.1.13.10 4.2.7.2.686 [id number] [facility] 2019-03-22 14:44:34 2019-03-22 16:20:55 Office Visit Urology, Demetrius Strickland [facility] 1.2.840.114 350.1.13.10 4.2.7.2.686 [id number] [facility] 2018-12-01 00:00:00 2018-12-01 00:00:00 Telephone Guerrero [facility] Building 1.2.840.114 350.1.13.10 4.2.7.2.686 [id number] [facility] 2018-11-30 00:00:00 2018-11-30 00:00:00 Telephone Guerrero [facility] 1.2.840.114 350.1.13.10 4.2.7.2.686 [id number] [facility] 2018-11-12 07:59:52 2018-11-12 08:43:27 Office Visit Guerrero [facility] 1.2.840.114 350.1.13.10 4.2.7.2.686 [id number] [facility] 2018-11-12 00:00:00 2018-11-12 00:00:00 Letter (Out) Apryl Guerrero [facility] 1.2.840.114 350.1.13.10 4.2.7.2.686 [id number] 134 [id number] [facility] 2018-11-11 08:24:16 2018-11-11 08:54:22 Nurse Visit Nurse, [facility] Richard Alexandria Skyler [facility] 1.2.840.114 350.1.13.10 4.2.7.2.686 [id number] [facility] 2018-11-11 00:00:00 2018-11-11 00:00:00 Orders Only Doctor Unassigned, [place] [facility] 1..840.114 350.1.13.10 4.2.7.2.686 [id number] [facility] 2018-10-07 14:49:05 2018-10-07 16:35:54 Office Visit Karen Tamayo Elizabeth A [facility] 1.2.840.114 350.1.13.10 4.2.7.2.686 [id number] [facility] Results Test Description Test Time Test Comments Results Result Co [facility]ments [facility]/o Specific [id number] 20:49:00* Test Item Value Reference Range Interpretation Comme nts POCT PH U (test code = 3254) 5 mg/dl 5-8 POCT U LEUK EST (test code = 3263) Negative Negative - Negative POCT U NIT (test code = 3262) Negative Negative - Negati ve POCT U PROT (test code = 3259) Negative Negative - Negat thea POCT U GLU (test code = 3256) Normal Negative - Negati ve POCT U KETONE (test code = 3258) +small Negative - Neg ative POCT U BLD (test code = 3257) Negative Negative - Negati ve [facility] [id number] 20:49:00* Test Item Value Reference Range Interpretation Comme nts POCT PREG (test code = 1605) Positive On board controls acceptable with C Line (test code = 3574) Yes POCT PREG LOT # (test code = 3575) POCT PREG TEST DATE ( test code = 3576) [facility] Urinalysis w/o Specific [id number] 20:49:00* Test Item Value Reference Range Interpretation Comme nts POCT PH U (test code = 3254) 5 mg/dl 5-8 POCT U LEUK EST (test code = 3263) Negative Negative - Negative POCT U NIT (test code = 3262) Negative Negative - Negati ve POCT U PROT (test code = 3259) Negative Negative - Negat thea POCT U GLU (test code = 3256) Normal Negative - Negati ve POCT U KETONE (test code = 3258) +small Negative - Neg ative POCT U BLD (test code = 3257) Negative Negative - Negati ve [facility] MOLECULAR [id number] 16:32:49* Test Item Value Reference Range Interpretation Comme nts POCT Molecular Strep (test c ode = 03113-9) Negative Negative Lab Interpretation (test cod e = 57103-2) Normal [facility] URINALYSIS W/O SPECIFIC [id number] 20:36:00* Test Item Value Reference Range Interpretation [...] = 3257) negative Negative - Negati ve [facility] URINALYSIS W/O SPECIFIC [id number] 20:36:00* Test Item Value Reference Range Interpretation [...] = 3257) negative Negative - Negati ve [facility] [id number] 15:01:00* Test Item Value Reference Range Interpretation Comme nts POCT PREG (test code = 1605) Negative On board controls acceptable with C Line (test code = 3574) Yes POCT PREG LOT # (test code = 3575) POCT PREG TEST DATE ( test code = 3576) [facility] [id number] 15:01:00* Test Item Value Reference Range Interpretation Comme nts POCT PREG (test code = 1605) Negative On board controls acceptable with C Line (test code = 3574) Yes POCT PREG LOT # (test code = 3575) POCT PREG TEST DATE ( test code = 3576) [facility] [id number] 15:01:00* Test Item Value Reference Range Interpretation Comme nts POCT PREG (test code = 1605) Negative On board controls acceptable with C Line (test code = 3574) Yes POCT PREG LOT # (test code = 3575) POCT PREG TEST DATE ( test code = 3576) [facility] 02:46:43* Test Item Value Reference Range Interpretation Comme nts ALCOHOL (test code = 5064684161) <10 mg/dL HAZEL (test code = HAZEL) <10 Aceyjjxj21-161 Toxic>100 Depression of DEALER COMPLIANCE REPRESENTATIVE>400 Fatalities Reported [facility] [id number] 02:44:00* Test Item Value Reference Range Interpretation Comme nts POCT PREG (test code = 1605) negative On board controls acceptable with C Line (test code = 3574) present POCT PREG LOT # (test code = 3575) [id number] POCT PREG TEST DATE ( test code = 3576) 2022-04-22 Lab Interpretation (test cod e = 41776-4) Normal [facility]. METABOLIC PANEL (38987)2021-01-06 02:40:21* Test Item Value Reference Range Interpretation Comme nts NA (test code = 9566874667) 139 mmol/L 135-145 K (test code = 4096964445) 3.8 mmol/L 3.5-5.0 CL (test code = 5885679479) 114 mmol/L 98-108 H CO2 TOTAL (test code = 1495219436) 20 mmol/L 23-31 L AGAP (test code = 7201796222) 2-16 BUN (test code = 4408772867) 13 mg/dL 7-23 GLUCOSE (test code = 0418350204) 86 mg/dL 70-110 CREATININE (test code = 7598228833) 0.53 mg/dL 0.50-1.04 TOTAL BILI (test code = 9600084047) 0.4 mg/dL 0.1-1.1 CALCIUM (test code = 9135376952) 7.8 mg/dL 8.6-10.6 L T PROTEIN (test code = 0925455274) 5.6 g/dL 6.3-8.2 L ALBUMIN (test code = 3874078240) 3.1 g/dL 3.5-5.0 L ALK PHOS (test code = 3359110652) 36 U/L 34-122 ALTv (test code = 1742-6) 14 U/L 5-35 AST(SGOT) (test code = 3965670837) 26 U/L 13-40 eGFR (test code = 3426592708) mL/min/1.73m2 HAZEL (test code = HAZEL) Association [...] imaging tests). Lab Interpretation (test code = 71848-4) Abnormal [facility] Whole [id number] 02:30:07* Test Item Value Reference Range Interpretation Comme nts LACTIC ACID (test code = 4505412147) 1.53 mmol/L 0.50-2.20 Lab Interpretation (test cod e = 08243-7) Normal [facility] WITH [id number] 02:20:01* Test Item Value Reference Range Interpretation Comme nts WBC (test code = 6690-2) See_Comment [Automated ZYOMYX] The system which generated this result transmitted reference range: 4.50 - 13.50 10*3/?L. The reference range was not used to interpret this result as normal/abnormal. RBC (test code = 789-8) See_Comment [Automated ZYOMYX] The system which generated this result transmitted [...] g/dL 32.0-36.0 L RDW-SD (test code = 63160-0) 45.0 fL 38.5-49.0 RDW-CV (test code = 788-0) 14.8 % 11.5-14.0 H PLT (test code = 777-3) See_Comment [Automated messa ge] The system which generated this result transmitted reference range: 135 - 361 10*3/?L. The reference range was not used to interpret this result as normal/abnormal. MPV (test code = 82697-8) 10.5 fL 9.4-13.3 NRBC/100 WBC (test code = 8973664164) See_Comment [Automated OnState ssage] The system which generated this result transmitted reference range: 0.0 - 10.0 /100 WBCs. The reference range was not used to interpret this result as normal/abnormal. NRBC x10^3 (test code = 1943585940) <0.01 See_Comment [Automated messa ge] The system which generated this result transmitted reference range: 10*3/?L. The reference range was not used to interpret this result as normal/abnormal. GRAN MAT (NEUT) % (test code = 770-8) 45.6 % IMM GRAN % (test code = 5398068629) 0.20 % LYMPH % (test code = 736-9) 42.0 % MONO % (test code = 5905-5) 9.9 % EOS % (test code = 713-8) 2.1 % BASO % (test code = 706-2) 0.2 % GRAN MAT x10^3(ANC) (test code = 2389498907) 3.68 10*3/uL 1.50-10.30 IMM GRAN x10^3 (test code = 9812123098) <0.03 0.00-0.06 LYMPH x10^3 (test code = 731-0) 3.39 10*3/uL 0.70-7.40 MONO x10^3 (test code = 742-7) 0.80 10*3/uL 0.00-0.50 H EOS x10^3 (test code = 711-2) 0.17 10*3/uL 0.00-0.40 BASO x10^3 (test code = 704-7) <0.03 0.00-0.10 Lab Interpretation (test code = 51594-0) Abnormal [facility] RAPID STREP SCREEN FOR GROUP [id number] 19:24:00* Test Item Value Reference Range Interpretation Comme nts POCT GP A STREP (test code = 72812-1) negative Negative - Negative [facility] RAPID STREP SCREEN FOR GROUP [id number] 19:24:00* Test Item Value Reference Range Interpretation Comme nts POCT GP A STREP (test code = 58009-7) negative Negative - Negative [facility] [id number] 00:00:00* Test Item Value Reference Range Interpretation Comme nts IMP (test code = IMP) Electroencephalogram Report NAME: Romy BernsteinAGE: 19 Year(s) 6 Month(s)DATE OF EE10/12/2019PROCEDURE: ?EEG ? ? EEG#: [id number] PHYSICIAN: Jasmyn Arreguin MDLOCATION: ?[facility] DIAGNOSIS: Seizure vs PNESPERTINENT MEDICATIONS: ?N/A [...] normal for age in wake and sleep. Jasmyn Arreguin MD Recording time: 44m39s Lab Interpretation (test code = 79807-5) Normal [facility] ULTRASOUND BREAST LIMITED [id number] 13:32:53HISTORY: 2 palpable masses in the left [...] patient and hermother. ACR classification: Category II. [facility], Radiant Results Inft User [...] the patient and hermother.ACR classification: [facility] II.[facility]PO[facility] URINALYS[facility] W/O SPECIFIC GRAVITY 2019-08-04 19:35:00* Test [...] = 3257) 4+ Negative - Negati ve [facility] URINALYSIS W/O SPECIFIC [id number] 19:35:00* Test Item Value Reference Range Interpretation [...] = 3257) 4+ Negative - Negati ve [facility] [id number] 18:57:00* Test Item Value Reference Range Interpretation Comme nts POCT PREG (test code = 1605) Negative On board controls acceptable with C Line (test code = 3574) Yes POCT PREG LOT # (test code = 3575) POCT PREG TEST DATE ( test code = 3576) [facility] [id number] 18:57:00* Test Item Value Reference Range Interpretation Comme nts POCT PREG (test code = 1605) Negative On board controls acceptable with C Line (test code = 3574) Yes POCT PREG LOT # (test code = 3575) POCT PREG TEST DATE ( test code = 3576) [facility] [id number] 22:13:00* Test Item Value Reference Range Interpretation Comme nts URINE CULTURE (test code = 630-4) > 100,000 CFU/mL mixed aerobic organisms - suggests endogenous microbial contamination [facility] [id number] 22:13:00* Test Item Value Reference Range Interpretation Comme nts URINE CULTURE (test code = 630-4) > 100,000 CFU/mL mixed aerobic organisms - suggests endogenous microbial contamination [facility] Notes Date/Time Note Provider Source 2023-05-05 08:07:30 [id number]:07:30 Pt returned call. Pt notified of payment amount. 69105-7Pnialczro encounter IvcdDL8873-64-82O46:08:00Telepho ne encounter NoteTXT1.2.840.384235.1.13.104.2 .7.2.759133|[id number] e for patient ilnf38216-3KehhQPFLSIVCCBUPiyoho vipul C-CDA narrative [id number] R [address] 5595NASOOESSAIDUOBEHJYYFYS8687-5 2-13T08:08:001.2.840.888037.1.72 .3.15|1.2.840.202917.1.13.104.2. 7.2.727879_[id number] Stephanie Tubbs [facility] 2023-05-04 14:56:55 WEg4JFWlPvjOdxw06AET gSayqWw2N1vt gCRW38NG4mEozwIdS5qOICZKHh74wM8w 5100-94-24R47:56:55 LVM to review estimate with pt. MyChart estimate letter also sent. 22622-3Dghvtijcm encounter FlugTW1945-13-53N62:00:04Telepho ne encounter NoteTXT1.2.840.462586.1.13.104.2 .7.2.111643|[id number] e for patient nnzv98554-3SkziYXAKHGYGEKIVmxwon vipul C-CDA narrative text[address] PlikThylwfdkkIvatlrdhsQMQO544903 6776RNSLSUUAASYEKHEUNLJVDX4701-7 :00:041.2.840.029918.1.72 .3.15|1.2.840.271506.1.13.104.2. 7.2.727879_[id number] [facility] 2023-05-04 14:15:02 PotAbQR9SvRfCa5cgrB7 XdFhY6miinhF 81VBnRkaV6cxvUZdmmaTvyshYUWUZYHe 2798-46-57Y71:15:02 Pt would like to know the OOP cost due for her upcoming apt.Please advise.Future AppointmentsDate Time Provider Department Center05/07/2023 10:00 AM Alexandria [facility] AngletoPh: [phone] ([facility]) 95641-8Hcmmzszfb encounter CrclXF9140-94-81G94:17:34Telepho ne encounter NoteTXT1.2.840.545516.1.13.104.2 .7.2.452105|[id number] e for patient mpni29865-4LwuuLKLWZWNGFHWEqhbpi vipul C-CDA narrative luxm261783771Qndm HerRachael[address] XcpaHyeggewekPsxzzemrgXNUO280316 7393UDHQUTEGUSRLBEAZBOMDWB9985-3 :17:341.2.840.750681.1.72 .3.15|1.2.840.587418.1.13.104.2. 7.2.727879_[id number] Nazario Moore [facility] 2022-12-01 10:19:49 Tb2LuJWfMygIjwq0+Cb2 PFP49Hrmh2Yw nmGtuKZvKK0DA+83UxzYbnyTWCDmJeLi 6757-78-06Z60:19:49 I contacted Ms. Bernstein to let her know I received her hereditary cancer testing result. 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 CHEK2 carriers are at an increased risk [...] CHEK2 pathogenic (low penetrance) variant, specifically c.470T>C (p.Lqn190Dkc). This result is associated with an increased risk for breast and colon cancer with specific management recommendations for these risks, although the specific risks associated with this variant are lower in comparison to other CHEK2 pathogenic variants. 2) A follow-up appointment will be scheduled for tomorrow to discuss the implications of this result for her and her family members 88391-9Khbvapnhz encounter OlyqOL4772-01-20D20:38:29Telepho ne encounter NoteTXT1.2.840.860007.1.13.104.2 .7.2.081613|[id number] e for patient ehld97643-8VextBYTYUJDDXB[address] IewdYdwjuvqgeNqtujanosBZIH788225 0863GMYFJIYXUAURBNEVSMZEFD2069-0 2:38:291.2.840.723738.1.72 .3.15|1.2.840.592241.1.13.104.2. 7.2.727879_[id number] [facility] 2022-11-26 11:50:52 rX6aNx783sYQAxcAgQ+a 00G5RbsUEmZC 86pmaF2r6AEvYf6GZ6pmQzcWVVWhuCWG 6196-31-97Q79:50:52 [facility] lab results scanned to chart. 66991-6Ywqucyhlq encounter DiciIT3805-32-18C35:51:15Telepho ne encounter NoteTXT1.2.840.954781.1.13.104.2 .7.2.952796|[id number] e for patient yuli53336-4YymcDL883934055Csgbcu suly Llanos RN[address] RiemQhwlveyupKftlysnstBLJO732234 9769TATQUQQMYCQVOVLSOXKUUQ7213-2 9-06T11:51:151.2.840.046051.1.72 .3.15|1.2.840.238128.1.13.104.2. 7.2.727879_[id number] Corrine Llanos RN [facility] 2022-11-18 10:15:00 RHW83dhIwnf9IlVecxLU gEoRo4TYYebX dkYW80V/51HjxT/8lJAq09vnec55RZg/ 6934-80-96F56:15:00 Images from the original note were not [...] DK BLUE (S) ACD Blood Culture NIPT/NTD 87997-9Rwbgd PlsbYL2755-17-41B43:32:54Nurse NoteTXT1.2.840.336827.1.13.104.2 .7.2.573408|[id number] e for patient ypra38514-9Nvyyf NoteLNUT[address] GdesZhnzwevdcGhcuhgstgOMUT841080 0922DSBGQUBEMSGDMVRIMBFXBE4687-3 0:32:541.2.840.263690.1.72 .3.15|1.2.840.202407.1.13.104.2. 7.2.727879_[id number] [facility]
[2023-05-06 13:27] LABS: Hematocrit 37.7 % (36.0-45.0); MCV 84.5 fL (80-100); MPV 6.8 fL (7.6-11.3); Platelets 321 thou/uL (152-406); RBC Red Blood Cell Count 4.46 M/uL (3.86-4.86)
[2023-05-06 13:47] LABS: ALT/SGPT 36 U/L (13-56); AST/SGOT 22 U/L (15-37); Albumin 3.1 g/dL (3.4-5.0); Alkaline Phosphatase 45 U/L (45-117); BUN Blood Urea Nitrogen 9 mg/dL (7-18); Bicarbonate 23 mEq/L (21-32); Bilirubin Total 0.2 mg/dL (0.2-1.0); Glomerular Filtration Rate 122 ml/min (=/>90); Glucose Level 116 mg/dL (74-106); Potassium 3.5 mEq/L (3.5-5.1); Protein, Total 6.7 g/dL (6.4-8.2); Sodium Level 138 mEq/L (136-145)
[2023-05-06 13:48] LABS: Phenytoin (Dilantin) Level < 0.5 mcg/mL (10.0-20.0)
[2023-05-06 14:33] LABS: Specific Gravity 1.009 (1.005-1.030)
[2023-05-06 14:37] LABS: Specific Gravity 1.009 (1.005-1.030); Urine Bacteria <20 /HPF (<20); Urine Bilirubin NEGATIVE (Negative); Urine Blood Negative (Negative); Urine Clarity Turbid (Clear); Urine Color Light-Yellow (Yellow); Urine Glucose NEGATIVE (Negative); Urine Mucus Slight /HPF (None Seen); Urine Protein NEGATIVE (Negative); Urine RBC <5 /HPF (None Seen); Urine Sperm Present (None Seen); Urine Urobilinogen Normal (Normal); Urine pH 7.5 (5.0-7.0)
--- NOTE | 2023-05-06 14:42 | EDPHYS ---
Physician Documentation [facility] Name: Romy Bernstein Age: 23 yrs Sex: Female : 2000 Arrival Date: 05/06/2023 Time: 12:51 Bed 13 Private MD: ED Physician Alek Carpenter HPI: 05/06 13:22 This 23 yrs old Female presents to ER via EMS with complaints of Seizure. kb 13:22 Patient is a 23-year-old female with a history of seizures who presents after having 2 kb seizures today. First 1 lasting approximately 1 minute second 1 lasting approximately 2 minutes. Patient is approximately 9 to 10 weeks at this time. Mother reports last seizure was 6 months ago and her medication was changed at that time from Keppra to Dilantin. As far as mother knows patient has been taking her medications as prescribed. Patient is postictal at this time but mother states she is acting normally for her after a seizure.. ROAD ADVISOR: 12:55 Verified as6 Historical: - Allergies: 12:56 Keppra; as6 12:56 Vesicare; as6 - PMHx: 12:56 Anxiety; bladder problems; Seizures; as6 - PSHx: 12:56 Tonsillectomy; as6 - Immunization history:: Adult Immunizations up to date. - Social history:: Smoking status: Patient denies any tobacco usage or history of. ROS: 13:26 Constitutional: Negative for fever, chills, and weight loss, kb 13:26 Unable to obtain ROS due to Postictal state, Exam: 13:26 Constitutional: This is a well developed, well nourished patient who is awake, alert, kb and in no acute distress. Head/Face: Normocephalic, atraumatic. ENT: Moist Mucous membranes Cardiovascular: Regular rate Respiratory: Respirations even and unlabored. No increased work of breathing. Talking in full sentences Abdomen/GI: Soft, non-tender. No distention Skin: Warm, dry with normal turgor. Normal color. MS/ Extremity: Pulses equal, no cyanosis. Neurovascular intact. Full, normal range of motion. Vital Signs: 12:55 BP 121 / 75; Pulse 83; Resp 13 S; Temp 98.5(A); Pulse Ox 100% on R/A; as6 MDM: 12:56 Patient medically screened. kb 13:27 Differential diagnosis: seizure, Noncompliance with seizure medication, UTI, abnormal kb electrolytes. Data reviewed: vital signs, nurses notes. Historians other than the Patient: Parent: mother. 14:40 ED course: Patient now awake alert and oriented x 4. States she has not taken Dilantin kb in about 7 months because she has not followed up. Also reports that she was diagnosed with pseudoseizures in 2019. Discussed case with Dr. Carpenter who recommends outpatient follow-up. Patient educated to follow-up with neurology and OB.. 14:41 Counseling: I had a detailed discussion with the patient and/or guardian regarding the kb historical points, exam findings, and any diagnostic results supporting the discharge/admit diagnosis, lab results, the need for outpatient follow up, a neurologist, an OB/Gyne specialist, to return to the emergency department if symptoms worsen or persist or if there are any questions or concerns that arise at home. 05/06 13:06 Order name: CBC with Diff; Complete Time: 13:32 kb 05/06 13:06 Order name: CMP; Complete Time: 13:51 kb 05/06 13:06 Order name: Test, Urine; Complete Time: 14:37 kb 05/06 13:06 Order name: Urinalysis w/ reflexes; Complete Time: 14:41 kb 05/06 13:06 Order name: Dilantin; Complete Time: 13:51 kb Administered Medications: 13:20 Drug: Promethazine IVP 6.25 mg IVP once Route: IVP; Site: left antecubital; kc6 15:05 Follow up: Response: No adverse reaction; Nausea is decreased; Vomiting decreased ll1 13:20 Drug: NS 0.9% IV 1000 ml IV at 1000 ml once Route: IV; Rate: 1000 ml; Site: left kc6 antecubital; 15:05 Follow up: Response: No adverse reaction; IV Status: Completed infusion; IV Intake: ll1 1000ml 15:05 Drug: Acetaminophen PO 650 mg PO once Route: PO; ll1 Disposition: 17:31 Co-signature as Attending Physician, Alek Carpenter MD I reviewed the patient's care rn provided by the Advanced Practice Provider and agree with the diagnosis and treatment plan. Disposition Summary: 05/06/23 14:41 Discharge Ordered Notes: Location: Home kb Condition: Stable kb Diagnosis - Other seizures kb Followup: kb - With: Emergency Department - When: As needed - Reason: Worsening of condition Followup: kb - With: Private Physician - When: 2 - 3 days - Reason: Recheck today's complaints, Continuance of care, Re-evaluation by your physician Discharge Instructions: - Discharge Summary Sheet kb - Seizure, Adult, Mmbg-jf-Lenk kb Forms: - Medication Reconciliation Form kb - Thank You Letter kb - Antibiotic Education kb - Prescription Opioid Use kb - Patient Portal Instructions kb - Leadership Thank You Letter kb Signatures: Dispatcher [employer] EDMS Lety Buenrostro, SHAPING MACHINE TENDER-C SHAPING MACHINE TENDER-Ckb Alek Carpenter MD MD rn Lewis, Lynsay, RN RN ll1 Kieran Hastings RN RN as6 Estephanie Almanza RN RN kc6
--- NOTE | 2023-05-06 14:42 | ER ---
Nurse's Notes [facility] Name: Romy Bernstein Age: 23 yrs Sex: Female : 2000 Arrival Date: 05/06/2023 Time: 12:51 Bed 13 [facility] MD: Diagnosis: Other seizures Presentation: 05/06 12:56 Chief complaint: EMS states: called out for seizures. pt has a history of seizures. as6 Coronavirus screen: At this time, the client does not indicate any symptoms associated with coronavirus-19. Ebola Screen: No symptoms or risks identified at this time. Initial Sepsis Screen: Does the patient meet any 2 criteria? No. Patient's initial sepsis screen is negative. Does the patient have a suspected source of infection? No. Patient's initial sepsis screen is negative. Risk Assessment: Do you want to hurt yourself or someone else? Patient reports no desire to harm self or others. Onset of symptoms was May 06, 2023. 12:56 Acuity: SERA 3 as6 12:56 Method Of Arrival: EMS: [facility] as6 12:58 Care prior to arrival: IV initiated. 20 GA, in the left antecubital area, Glucose as6 check: 107. Triage Assessment: 12:59 General: Appears in no apparent distress. Behavior is drowsy, flat, quiet. Neuro: Level as6 of Consciousness is post ictal. 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 - Social history:: Smoking status: Patient denies any tobacco usage or history of. Screenin:59 [facility] ED Fall Risk Assessment (Adult) Score/Fall Risk Level 0 - 2 = Low Risk. Abuse as6 screen: Denies threats or abuse. Denies injuries from another. Nutritional screening: No deficits noted. Tuberculosis screening: No symptoms or risk factors identified. Assessment: 13:00 General: Appears in no apparent distress. comfortable, well groomed, well developed, ll1 Behavior is calm, cooperative, appropriate for age, quiet. Pain: Denies pain. Neuro: Level of Consciousness is awake, alert, obeys commands, post ictal, Oriented to person, place, time, situation, Appropriate for age. Cardiovascular: Capillary refill < 3 seconds. Respiratory: Airway is patent Trachea midline Respiratory effort is even, unlabored, Respiratory pattern is regular, symmetrical. GI: No signs and/or symptoms were reported involving the gastrointestinal system. : No signs and/or symptoms were reported regarding the genitourinary system. EENT: No signs and/or symptoms were reported regarding the EENT system. Derm: No signs and/or symptoms reported regarding the dermatologic system. Skin is intact, is healthy with good turgor, Skin is pink, warm \T\ dry. Musculoskeletal: No signs and/or symptoms reported regarding the musculoskeletal system. Circulation, motion, and sensation intact. Capillary refill < 3 seconds, Range of motion: intact in all extremities. 13:20 Reassessment: No changes from previously documented assessment. Patient and/or family ld1 updated on plan of care and expected duration. Pain level reassessed. 14:00 Reassessment: Patient appears in no apparent distress at this time. No changes from ll1 previously documented assessment. Patient and/or family updated on plan of care and expected duration. Pain level reassessed. Patient is alert, oriented x 3, equal unlabored respirations, skin warm/dry/pink. 14:16 Reassessment: No changes from previously documented assessment. to commode for UA ll1 collection. 15:00 Reassessment: Patient appears in no apparent distress at this time. No changes from ll1 previously documented assessment. Patient and/or family updated on plan of care and expected duration. Pain level reassessed. Patient is alert, oriented x 3, equal unlabored respirations, skin warm/dry/pink. Vital Signs: 12:55 BP 121 / 75; Pulse 83; Resp 13 S; Temp 98.5(A); Pulse Ox 100% on R/A; as6 ED Course: 12:55 Patient arrived in ED. ld1 12:55 Let[facility]rostro [facility]C [facility] kb 12:55 Alek Carpenter MD is Attending Physician. kb 12:55 Arm band placed on. as6 12:58 Triage completed. as6 12:58 Maintain EMS IV. Dressing intact. Good blood return noted. Site clean \T\ dry. Gauge \T\ as 6 site: 20g LAC. 12:59 Bed in low position. Call light in reach. Side rails up X2. Adult w/ patient. Client as6 placed on continuous cardiac and pulse oximetry monitoring. NIBP monitoring applied. Warm blanket given. 13:15 Estephanie Almanza, RN is Primary Nurse. kc6 15:05 No provider procedures requiring assistance completed. IV discontinued, intact, ll1 bleeding controlled, No redness/swelling at site. Pressure dressing applied. Administered Medications: 13:20 Drug: Promethazine IVP 6.25 mg IVP once Route: IVP; Site: left antecubital; kc6 15:05 Follow up: Response: No adverse reaction; Nausea is decreased; Vomiting decreased ll1 13:20 Drug: NS 0.9% IV 1000 ml IV at 1000 ml once Route: IV; Rate: 1000 ml; Site: left kc6 antecubital; 15:05 Follow up: Response: No adverse reaction; IV Status: Completed infusion; IV Intake: ll1 1000ml 15:05 Drug: Acetaminophen PO 650 mg PO once Route: PO; ll1 Medication: 12:59 VIS not applicable for this client. as6 Intake: 15:05 IV: 1000ml; Total: 1000ml. ll1 Outcome: 14:41 Discharge ordered by MD. bell 15:06 Discharged to home ambulatory, with significant other, ll1 15:06 Condition: improved 15:06 Discharge instructions given to patient, Instructed on discharge instructions, follow up and referral plans. Demonstrated understanding of instructions, follow-up care, 15:07 Patient left the ED. ll1 Signatures: Lety Buenrostro, PINKY OCASIO-Mayi Bell RN RN ll1 Katie Guerra RN RN ld1 Kieran Hastings, CHAYA RN as6 Estephanie Almanza, RN RN kc6
[2023-05-06 16:19] VITALS: BP 121/75; TEMP 98.5; O2SAT 100
== END ==
LOC: ER 12:51
DX: O99.351 Diseases of the nervous system complicating pregnancy, first trimester (principal); G40.802 Other epilepsy, not intractable, without status epilepticus; Z3A.10 10 weeks gestation of pregnancy; Z88.8 Allergy status to other drugs, medicaments and biological substances
CPT/HCPCS: 36415; 80053; 80185; 81001; 81025; 85025; J2550; J7030

== ENCOUNTER 2023-06-29 15:50 | Emergency (ER) | payer OTHER ==
--- OUTSIDE RECORDS SUMMARY | 2023-06-29 16:12 | XMS REPORT | Continuity of Care Document ---
Author Name Unknown Address [address] [facility] [address] [place] [address] [facility] thconnect Address [address] [facility]. [address] [place] [address] Care Team Providers Care Skip Pitman Name Role Phone PCP, PATIENT DOES NOT HAVE A Primary Care Physic drea Unavailable EMILIE LOPEZ Attending Clinician UnavailEMILIE Rivers Attending Clinician UnavailALEXANDRIA Sepulveda Attending Clinician Unavailable Alexandria Whitmore MD Attending Clinician [phone] Doctor Unassigned, [place] Attending Clinician [facility] Attending Clinician Unavailable JESSE LEMOS Attending Clinician Unavailable Jesse Lemos MD Attending Clinician [phone] GUI ALY Attending Clinician Unavailable Elbert Luevano MD Attending Clinician [phone] Gui Aly PA-C Attending Clinician [phone] ROLAN CASAREZ Attending Clinician Unavailable MILAN DELCID Attending Clinician Unavailable Leslie Carreon Attending Clinician UnavailMilan Smith MD Attending Clinician [phone] Corrine Llanos RN Attending Clinician UnavailRolan Varma PA-C Attending Clinician [phone] Lab, [facility] Attending Clinician Unavailable VALLECILLO, REENU Attending Clinician Unavailable Avel OCASIO, Reemarycarmenu Attending Clinician [phone] Unknown, Attending Attending Clinician Unavailab BROOKLYN Silva Attending Clinician Unavailable Laureen FULLER, Brooklyn Ridley Attending Clinician [phone] Liu Carlton Attending Clinician Unavailable HAYLEY CASTILLO Attending Clinician Unavailable KAREN SIDDIQUI Attending Clinician Unavailable Alena Erickson MD Attending Clinician [phone] Roma Adame NP Attending Clinician [phone] EMELY CANALES Attending Clinician Unavailable Chinmay Aly DO Attending Clinician [phone] Nurse, Tony Quevedo Attending Clinician Unavaila ALENA Moreno Attending Clinician Unavaila ninfa Siddiqui ENTRY EXAMINER, Karen Attending Clinician [phone] Dalia Escalante MD Attending Clinician [phone] Eeg, Sapna Pedi Neuro Attending Clinician Unavaila DALIA Franklin Attending Clinician Unavailable Nurse, [facility] Attending Clinician Un available Urology, [facility] Attending Clinician Lizandro Morgan MD, Demetrius Attending Clinician [phone] Urology, Sapna Pedi Attending Clinician Unavailchris Guerrero MD, Apryl Attending Clinician [phone] GUI ALY Admitting Clinician Unavailable ROLAN CASAREZ Admitting Clinician Unavailable ALEXANDRIA WHITMORE Admitting Clinician Unavailable Payers Payer Name Policy Type Policy Number Effective Date Expirati on Date Source [employer] MEDICAID [id number] 2016 00:00:00 [place] [id number] 2023 00:00:00 [facility] [id number] 2022 00:00:00 [facility] [id number] 2022 00:00:00 Problems Condition Name Condition Details Condition Category Status Onset Date Resolution Date Last Treatment Date Treating Clinician Comments Source Nausea and vomiting during prior to 22 weeks gestation Nausea and vomiting during prior to 22 weeks gestation Disease Active 14 00:00: 00 [facility] High-risk in first trimester High-risk in first trimester Disease Active 2-15 00:00: 00 [facility] Nexplanon in place Nexplanon in place Disease Active 5-14 00:00: 00 [facility] Burning with urination Burning with urination Disease Active 5-14 00:00: 00 [facility] Chronic nonintract able headache, unspecifie d headache type Chronic nonintract able headache, unspecifie d headache type Disease Active 3-13 00:00: 00 [facility] Obesity peds (BMI >=95 percentile ) Obesity peds (BMI >=95 percentile ) Disease Active 10-08 00:00: 00 [facility] Generalize d epilepsy Generalize d epilepsy [...] will reevaluat e next visit." F/u 10/13/2018 [facility] 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 Disease Active 10-07 00:00: 00 [facility] Weight gain Weight gain Disease Active 10-07 00:00: 00 [facility] History of depression History of depression Disease Active 18 00:00: 00 [facility] Migraine without aura and without status migrainosu s, not intractabl e Migraine without aura and without status migrainosu s, not intractabl e Disease Active 03-30 00:00: 00 [facility] Family history of breast cancer Family history of breast cancer Disease Active 2017-03 00:00: 00 [facility] Depo-Prove ra contracept thea status Depo-Prove ra contracept thea status Disease Active 2017-03 00:00: 00 [facility] Breast asymmetry in female Breast asymmetry in female Disease Active 2017-03 00:00: 00 [facility] Asthma Asthma Disease Active [facility] Allergic rhinitis Allergic rhinitis Disease Active [facility] Family history of familial hyperchole sterolemia Family history of familial hyperchole sterolemia Disease Active [facility] Allergies, Adverse Reactions, Alerts Allergy Name Allergy Type Status Severity Reaction(s) Onset Date Inactive Date Treating Clinician Comments Source LEVETIRA CETAM DRUG INGREDI Active Other-Cmnt 2021-03 00:00: 00 [facility] Levetira cetam Propensi ty to adverse reaction s Active Other - See comments 2021-03 00:00: 00 Numb mouth, and sleepy [facility] Solifena lizabeth Succinat e Propensi ty to adverse reaction s Active Swelling 2016-03 00:00: 00 [facility] SOLIFENA LIZABETH SUCCINAT E DRUG INGREDI Active Rash 2016-03 00:00: 00 [facility] Solifena lizabeth Propensi ty to adverse reaction s Active Swelling 2011-03 00:00: 00 Per mom, after increasin g the dose to 10 mg , patient experienc ed swelling to the face. [facility] SOLIFENA LIZABETH DRUG INGREDI Active High Swelling 2011-03 00:00: 00 [facility] Social History Social Habit Start Date Stop Date Quantity Comments Source ASSERTION 2023-03-25 00:00:[address] [facility] History of tobacco use Passive smoker [facility] Gender identity [facility] Sexual orientation [facility] Alcohol intake 2023-06-15 00:00:00 2023-06-15 00:00:00 Current non-drinker of alcohol (finding) [facility] History of Social function 2023-06-04 00:00:00 2023-06-04 00:00:[address] [facility] Exposure to SARS-CoV-2 (event) 2022-08-01 00:00:00 2022-08-11 11:13:[address] [facility] Tobacco use and exposure 2022-01-02 00:00:00 2022-01-02 00:00:00 Smokeless tobacco non-user [facility] Sex Assigned At 2000 00:00:00 2002 00:00:[address] [facility] Smoking Status Start Date Stop Date Source Never smoked tobacco [facility] Medications Ordered Medication Name Filled Medication Name Start Date Stop Date Current Medication? Ordering Clinician Indication Dosage Frequency Signature (SIG) Comments Components Source levETIRAcet am 750 mg tablet 06-14 00:00: 00 Yes [id number] 750mg Take 1 tablet by mouth in the morning and 1 tablet in the evening. [facility] famotidine (PEPCID (PF)) injection 20 mg 06-03 17:15: 00 06-03 16:10 :00 No 20mg 20 mg, Slow IV Push, ONCE NOW, 1 dose, On Thu06/04/23 at 1215, STEFANIA [facility] levETIRAcet am (KEPPRA) in NACL (ISO-OS) 1,000 mg/100 mL RTU 06-03 17:00: 00 06-03 18:09 :00 No 1000mg 1,000 mg, IV Piggyback, ONCE, 1 dose, On Thu06/04/23 at 1200, Administer over 15 Minutes, 100 mL [facility] ondansetron (ZOFRAN (PF)) injection 4 mg 06-03 16:15: 00 06-03 16:10 :00 No 4mg 4 mg, Slow IV Push, ONCE, 1 dose, On Gladys 06/04/23 at 1115, STEFANIA [facility] pyridoxine, VITAMIN B-6, (VITAMIN B-6) 25 mg tablet 06-03 00:00: 00 Yes [id number] 25mg Take 1 tablet by mouth every 6 (six) hours as needed for Nausea and Vomiting (N/V). [facility] doxylamine (UNISOM, DOXYLAMINE, ) 25 mg tablet 06-03 00:00: 00 Yes [id number] 25mg Take 1 tablet by mouth at bedtime as needed for Nausea and Vomiting (N/V). [facility] metoclopram chel HCl 10 mg tablet 06-03 00:00: 00 Yes [id number] 10mg Take 1 tablet by mouth every 6 (six) hours as needed for Nausea and Vomiting (N/V). [facility] Lactobacill us acidophilus (PROBIOTIC ORAL) 05-07 10:04: 06 Yes Take by mouth. [facility] Lactobacill us acidophilus (PROBIOTIC ORAL) 04-23 14:49: 45 Yes Take by mouth. [facility] ofloxacin 0.3 % otic drops 08-11 00:00: 00 08-19 04:59 :00 No [id number] 04843 5[drp] Place 5 Drops in right ear in the morning and 5 Drops in the evening. Do all this for 7 days. [facility] No known medications 2021-03 13:07: 23 No No known medication s [facility] etonogestre L (NEXPLANON) implant 68 mg 2021-03 16:15: 00 01-31 15:23 :00 No [id number] 68mg [facility] No known medications 2021-03 08:48: 39 No No known medication s [facility] No known medications 2021-03 09:58: 47 No No known medication s [facility] calcium chloride 100 mg/mL (10 %) syringe 1,000 mg 2020-03 04:30: 00 01-06 03:55 :00 No 1000mg 1,000 mg, Intravenou s, ONCE, 1 dose, On 01/05/21 at 2330, STAT [facility] levETIRAcet am (KEPPRA) in NACL (ISO-OS) 1,000 mg/100 mL RTU 2020-03 03:15: 00 01-06 02:51 :00 No 1000mg 1,000 mg, IV Infusion, ONCE, 1 dose, On 01/05/21 at 2215, Administer over 15 Minutes, 100 mL [facility] NaCl 0.9% (NS) bolus infusion 1,000 mL 2020-03 03:00: 00 01-06 04:30 :00 No 1000mL at 999 mL/hr, 1,000 mL, IV Infusion, ONCE, 1 dose, On 01/05/21 at 2200, STEFANIA [facility] No known medications 2020-03 23:25: 12 No [facility] ciprofloxac in HCl 250 mg tablet 2020-03 00:00: 00 01-09 04:59 :00 No [id number] 250mg Take 1 tablet by mouth 2 (two) times daily for 3 days. [facility] fluticasone propionate 50 mcg/actuati on nasal spray 04-02 00:00: 00 01-05 00:00 :00 No [id number] 1{spray } Use 1 Valera in each nostril daily. [facility] cetirizine 10 mg tablet 2019-03 2- 00:00: 00 01-05 00:00 :00 No [id number] 10mg Take 1 tablet by mouth daily. [facility] ibuprofen 600 mg tablet 2019-03 2- 00:00: 00 04-02 00:00 :00 No [id number] 600mg Take 1 tablet by mouth every 8 (eight) hours as needed for Pain (scale 4-6) (headache) . [facility] fluticasone propionate 50 mcg/actuati on nasal spray 2019-03 2-04 00:00: 00 04-02 00:00 :00 No [id number] 1{spray } Use 1 Valera in each nostril daily. [facility] etonogestre L (NEXPLANON) implant 68 mg 2019-03 22:45: 00 01-29 21:43 :00 No 68mg [facility] topiramate (TOPAMAX) 25 mg tablet 10-11 00:00: 00 02-23 00:00 :00 No [id number] 25mg Take 1 tablet by mouth 2 (two) times daily. [facility] topiramate (TOPAMAX) 25 mg tablet 10-05 20:30: 28 10-05 00:00 :00 No 25mg Take 25 mg by mouth. [facility] omeprazole 20 mg capsule 10-05 00:00: 00 02-23 00:00 :00 No [id number] 20mg Take 1 capsule by mouth daily. [facility] topiramate (TOPAMAX) 25 mg tablet 10-05 00:00: 00 10-11 00:00 :00 No 25mg Take 1 tablet by mouth 2 (two) times daily. [facility] meclizine 25 mg tablet 09-26 00:00: 00 02-23 00:00 :00 No 25mg Take 25 mg by mouth as needed. [facility] Nitrofurant oin&Nit. Macrocryst (MACROBID) 100 mg capsule 18 00:00: 00 10-05 00:00 :00 No [id number] 100mg Take 1 capsule by mouth 2 (two) times daily. [facility] etonogestre l (NEXPLANON) implant 68 mg -14 20:45: 00 08-03 19:36 :00 No 68mg [facility] norelgestro min-ethinyl estradiol 150-35 mcg/24 hr patch 06-14 00:00: 00 08-03 00:00 :00 No [id number] 1{patch } Apply 1 Patch to skin weekly. [facility] ibuprofen 600 mg tablet 05-22 00:00: 02-23 00:00 :00 No [id number] 600mg Take 1 tablet by mouth every 8 (eight) hours as needed for Pain (scale 4-6) (headache) . [facility] medroxyPROG ESTERone (DEPO-PROVE RA) injection 150 mg 05-16 23:00: 00 05-16 21:50 :00 No 150mg [facility] oxybutynin chloride 5 mg tablet 05-03 00:00: 10-05 00:00 :00 No [id number] 5mg Take 1 tablet by mouth 2 (two) times daily. [facility] polyethylen e glycol (MIRALAX) 17 gram/dose powder 2018-03 00:00: 00 04-02 00:00 :00 No [id number] 1/2 cap twice daily [facility] medroxyPROG ESTERone (DEPO-PROVE RA) injection 150 mg 11-11 15:00: 00 11-11 13:54 :00 No [id number] 150mg [facility] zonisamide 100 mg capsule 412 00:00: 00 05-03 00:00 :00 No [id number] 200mg Take 2 capsules by mouth daily. [facility] medroxyPROG ESTERone (DEPO-PROVE RA) injection 150 mg 2017-03 15:45: 00 06-14 15:23 :36 No 150mg [facility] Immunizations Ordered Immunization Name Filled Immunization Name Date Status Comments Source SARS-COV-2 COVID-19 PFIZER VACCINE 2020-07-06 00:00:[address] [facility] SARS-COV-2 COVID-19 PFIZER VACCINE 2020-07-06 00:00:[address] [facility] SARS-COV-2 COVID-19 PFIZER VACCINE 2020-07-06 00:00:[address] [facility] SARS-COV-2 COVID-19 PFIZER VACCINE 2020-07-06 00:00:[address] [facility] SARS-COV-2 COVID-19 PFIZER VACCINE 2020-07-06 00:00:[address] [facility] SARS-COV-2 COVID-19 PFIZER VACCINE 2020-07-06 00:00:[address] [facility] SARS-COV-2 COVID-19 PFIZER VACCINE 2020-07-06 00:00:[address] [facility] SARS-COV-2 COVID-19 PFIZER VACCINE 2020-07-06 00:00:[address] [facility] SARS-COV-2 COVID-19 PFIZER VACCINE 2020-07-06 00:00:[address] [facility] SARS-COV-2 COVID-19 PFIZER VACCINE 2020-07-06 00:00:[address] [facility] SARS-COV-2 COVID-19 PFIZER VACCINE 2020-07-06 00:00:[address] [facility] SARS-COV-2 COVID-19 PFIZER VACCINE 2020-07-06 00:00:[address] [facility] SARS-COV-2 COVID-19 PFIZER VACCINE 2020-07-06 00:00:[address] [facility] SARS-COV-2 COVID-19 PFIZER VACCINE 2020-07-06 00:00:[address] [facility] SARS-COV-2 COVID-19 PFIZER VACCINE 2020-07-06 00:00:[address] [facility] SARS-COV-2 COVID-19 PFIZER VACCINE 2020-07-06 00:00:[address] [facility] SARS-COV-2 COVID-19 PFIZER VACCINE 2020-07-06 00:00:[address] [facility] SARS-COV-2 COVID-19 PFIZER VACCINE 2020-07-06 00:00:[address] [facility] SARS-COV-2 COVID-19 PFIZER VACCINE 2020-07-06 00:00:[address] [facility] SARS-COV-2 COVID-19 PFIZER VACCINE 2020-07-06 00:00:[address] [facility] SARS-COV-2 COVID-19 PFIZER VACCINE 2020-07-06 00:00:[address] [facility] SARS-COV-2 COVID-19 PFIZER VACCINE 2020-07-06 00:00:[address] [facility] SARS-COV-2 COVID-19 PFIZER VACCINE 2020-07-06 00:00:[address] [facility] SARS-COV-2 COVID-19 PFIZER VACCINE 2020-07-06 00:00:[address] [facility] SARS-COV-2 COVID-19 PFIZER VACCINE 2020-07-06 00:00:[address] [facility] SARS-COV-2 COVID-19 PFIZER VACCINE 2020-07-06 00:00:[address] [facility] SARS-COV-2 COVID-19 PFIZER VACCINE 2020-07-06 00:00:[address] [facility] SARS-COV-2 COVID-19 PFIZER VACCINE 2020-07-06 00:00:[address] [facility] SARS-COV-2 COVID-19 PFIZER VACCINE 2020-07-06 00:00:[address] [facility] SARS-COV-2 COVID-19 PFIZER VACCINE 2020-07-06 00:00:[address] [facility] SARS-COV-2 COVID-19 PFIZER VACCINE 2020-07-06 00:00:[address] [facility] SARS-COV-2 COVID-19 PFIZER VACCINE 2020-07-06 00:00:[address] [facility] SARS-COV-2 COVID-19 PFIZER VACCINE 2020-07-06 00:00:[address] [facility] SARS-COV-2 COVID-19 PFIZER VACCINE 2020-07-06 00:00:[address] [facility] SARS-COV-2 COVID-19 PFIZER VACCINE 2020-07-06 00:00:[address] [facility] SARS-COV-2 COVID-19 PFIZER VACCINE 2020-07-06 00:00:[address] [facility] SARS-COV-2 COVID-19 PFIZER VACCINE 2020-07-06 00:00:[address] [facility] SARS-COV-2 COVID-19 PFIZER VACCINE 2020-07-06 00:00:[address] [facility] SARS-COV-2 COVID-19 PFIZER VACCINE 2020-07-06 00:00:[address] [facility] SARS-COV-2 COVID-19 PFIZER VACCINE 2020-06-15 00:00:[address] [facility] SARS-COV-2 COVID-19 PFIZER VACCINE 2020-06-15 00:00:[address] [facility] SARS-COV-2 COVID-19 PFIZER VACCINE 2020-06-15 00:00:[address] [facility] SARS-COV-2 COVID-19 PFIZER VACCINE 2020-06-15 00:00:[address] [facility] SARS-COV-2 COVID-19 PFIZER VACCINE 2020-06-15 00:00:[address] [facility] SARS-COV-2 COVID-19 PFIZER VACCINE 2020-06-15 00:00:[address] [facility] SARS-COV-2 COVID-19 PFIZER VACCINE 2020-06-15 00:00:[address] [facility] SARS-COV-2 COVID-19 PFIZER VACCINE 2020-06-15 00:00:[address] [facility] SARS-COV-2 COVID-19 PFIZER VACCINE 2020-06-15 00:00:[address] [facility] SARS-COV-2 COVID-19 PFIZER VACCINE 2020-06-15 00:00:[address] [facility] SARS-COV-2 COVID-19 PFIZER VACCINE 2020-06-15 00:00:[address] [facility] SARS-COV-2 COVID-19 PFIZER VACCINE 2020-06-15 00:00:[address] [facility] SARS-COV-2 COVID-19 PFIZER VACCINE 2020-06-15 00:00:[address] [facility] SARS-COV-2 COVID-19 PFIZER VACCINE 2020-06-15 00:00:[address] [facility] SARS-COV-2 COVID-19 PFIZER VACCINE 2020-06-15 00:00:[address] [facility] SARS-COV-2 COVID-19 PFIZER VACCINE 2020-06-15 00:00:[address] [facility] SARS-COV-2 COVID-19 PFIZER VACCINE 2020-06-15 00:00:[address] [facility] SARS-COV-2 COVID-19 PFIZER VACCINE 2020-06-15 00:00:[address] [facility] SARS-COV-2 COVID-19 PFIZER VACCINE 2020-06-15 00:00:[address] [facility] SARS-COV-2 COVID-19 PFIZER VACCINE 2020-06-15 00:00:[address] [facility] SARS-COV-2 COVID-19 PFIZER VACCINE 2020-06-15 00:00:[address] [facility] SARS-COV-2 COVID-19 PFIZER VACCINE 2020-06-15 00:00:[address] [facility] SARS-COV-2 COVID-19 PFIZER VACCINE 2020-06-15 00:00:[address] [facility] SARS-COV-2 COVID-19 PFIZER VACCINE 2020-06-15 00:00:[address] [facility] SARS-COV-2 COVID-19 PFIZER VACCINE 2020-06-15 00:00:[address] [facility] SARS-COV-2 COVID-19 PFIZER VACCINE 2020-06-15 00:00:[address] [facility] SARS-COV-2 COVID-19 PFIZER VACCINE 2020-06-15 00:00:[address] [facility] SARS-COV-2 COVID-19 PFIZER VACCINE 2020-06-15 00:00:[address] [facility] SARS-COV-2 COVID-19 PFIZER VACCINE 2020-06-15 00:00:[address] [facility] SARS-COV-2 COVID-19 PFIZER VACCINE 2020-06-15 00:00:[address] [facility] SARS-COV-2 COVID-19 PFIZER VACCINE 2020-06-15 00:00:[address] [facility] SARS-COV-2 COVID-19 PFIZER VACCINE 2020-06-15 00:00:[address] [facility] SARS-COV-2 COVID-19 PFIZER VACCINE 2020-06-15 00:00:[address] [facility] SARS-COV-2 COVID-19 PFIZER VACCINE 2020-06-15 00:00:[address] [facility] SARS-COV-2 COVID-19 PFIZER VACCINE 2020-06-15 00:00:[address] [facility] SARS-COV-2 COVID-19 PFIZER VACCINE 2020-06-15 00:00:[address] [facility] SARS-COV-2 COVID-19 PFIZER VACCINE 2020-06-15 00:00:[address] [facility] SARS-COV-2 COVID-19 PFIZER VACCINE 2020-06-15 00:00:[address] [facility] SARS-COV-2 COVID-19 PFIZER VACCINE 2020-06-15 00:00:[address] [facility] Meningococcal B, OMV 2020-04-16 00:00:[address] [facility] Meningococcal B, OMV 2020-04-16 00:00:[address] [facility] Meningococcal B, OMV 2020-04-16 00:00:[address] [facility] Meningococcal B, OMV 2020-04-16 00:00:[address] [facility] Meningococcal B, OMV 2020-04-16 00:00:[address] [facility] Meningococcal B, OMV 2020-04-16 00:00:[address] [facility] Meningococcal B, OMV 2020-04-16 00:00:[address] [facility] Meningococcal B, OMV 2020-04-16 00:00:[address] [facility] Meningococcal B, OMV 2020-04-16 00:00:[address] [facility] Meningococcal B, OMV 2020-04-16 00:00:[address] [facility] Meningococcal B, OMV 2020-04-16 00:00:[address] [facility] Meningococcal B, OMV 2020-04-16 00:00:[address] [facility] Meningococcal B, OMV 2020-04-16 00:00:[address] [facility] Meningococcal B, OMV 2020-04-16 00:00:[address] [facility] Meningococcal B, OMV 2020-04-16 00:00:[address] [facility] Meningococcal B, OMV 2020-04-16 00:00:[address] [facility] Meningococcal B, OMV 2020-04-16 00:00:[address] [facility] Meningococcal B, OMV 2020-04-16 00:00:[address] [facility] Meningococcal B, OMV 2020-04-16 00:00:00 Completed [facility] Meningococcal B, OMV 2020-04-16 00:00:00 Completed [facility] Meningococcal B, OMV 2020-04-16 00:00:[address] [facility] Meningococcal B, OMV 2020-04-16 00:00:[address] [facility] Meningococcal B, OMV 2020-04-16 00:00:[address] [facility] Meningococcal B, OMV 2020-04-16 00:00:[address] [facility] Meningococcal B, OMV 2020-04-16 00:00:[address] [facility] Meningococcal B, OMV 2020-04-16 00:00:[address] [facility] Meningococcal B, OMV 2020-04-16 00:00:[address] [facility] Meningococcal B, OMV 2020-04-16 00:00:[address] [facility] Meningococcal B, OMV 2020-04-16 00:00:[address] [facility] Meningococcal B, OMV 2020-04-16 00:00:[address] [facility] Meningococcal B, OMV 2020-04-16 00:00:[address] [facility] Meningococcal B, OMV 2020-04-16 00:00:[address] [facility] Meningococcal B, OMV 2020-04-16 00:00:[address] [facility] Meningococcal B, OMV 2020-04-16 00:00:[address] [facility] Meningococcal B, OMV 2020-04-16 00:00:[address] [facility] Meningococcal B, OMV 2020-04-16 00:00:[address] [facility] Meningococcal B, OMV 2020-04-16 00:00:[address] [facility] Meningococcal B, OMV 2020-04-16 00:00:[address] [facility] Meningococcal B, OMV 2020-04-16 00:00:[address] [facility] Meningococcal B, OMV 2020-04-16 00:00:[address] [facility] Meningococcal B, OMV 2020-04-16 00:00:[address] [facility] Meningococcal B, OMV 2020-04-16 00:00:[address] [facility] Meningococcal B, OMV 2020-04-16 00:00:[address] [facility] Meningococcal Polysaccharide (groups A, C, Y and W-135) conjugate vaccine (MCV4P) 2018-10-07 00:00:[address] [facility] Meningococcal B, Recombinant 2018-10-07 00:00:[address] [facility] Meningococcal Polysaccharide (groups A, C, Y and W-135) conjugate vaccine (MCV4P) 2018-10-07 00:00:[address] [facility] Meningococcal B, Recombinant 2018-10-07 00:00:[address] [facility] Meningococcal Polysaccharide (groups A, C, Y and W-135) conjugate vaccine (MCV4P) 2018-10-07 00:00:[address] [facility] Meningococcal B, Recombinant 2018-10-07 00:00:[address] [facility] Meningococcal Polysaccharide (groups A, C, Y and W-135) conjugate vaccine (MCV4P) 2018-10-07 00:00:[address] [facility] Meningococcal B, Recombinant 2018-10-07 00:00:[address] [facility] Meningococcal Polysaccharide (groups A, C, Y and W-135) conjugate vaccine (MCV4P) 2018-10-07 00:00:[address] [facility] Meningococcal B, Recombinant 2018-10-07 00:00:[address] [facility] Meningococcal Polysaccharide (groups A, C, Y and W-135) conjugate vaccine (MCV4P) 2018-10-07 00:00:[address] [facility] Meningococcal B, Recombinant 2018-10-07 00:00:[address] [facility] Meningococcal Polysaccharide (groups A, C, Y and W-135) conjugate vaccine (MCV4P) 2018-10-07 00:00:[address] [facility] Meningococcal B, Recombinant 2018-10-07 00:00:[address] [facility] Meningococcal Polysaccharide (groups A, C, Y and W-135) conjugate vaccine (MCV4P) 2018-10-07 00:00:[address] [facility] Meningococcal B, Recombinant 2018-10-07 00:00:[address] [facility] Meningococcal Polysaccharide (groups A, C, Y and W-135) conjugate vaccine (MCV4P) 2018-10-07 00:00:[address] [facility] Meningococcal B, Recombinant 2018-10-07 00:00:[address] [facility] Meningococcal Polysaccharide (groups A, C, Y and W-135) conjugate vaccine (MCV4P) 2018-10-07 00:00:[address] [facility] Meningococcal B, Recombinant 2018-10-07 00:00:[address] [facility] Meningococcal Polysaccharide (groups A, C, Y and W-135) conjugate vaccine (MCV4P) 2018-10-07 00:00:[address] [facility] Meningococcal B, Recombinant 2018-10-07 00:00:[address] [facility] Meningococcal Polysaccharide (groups A, C, Y and W-135) conjugate vaccine (MCV4P) 2018-10-07 00:00:[address] [facility] Meningococcal B, Recombinant 2018-10-07 00:00:[address] [facility] Meningococcal Polysaccharide (groups A, C, Y and W-135) conjugate vaccine (MCV4P) 2018-10-07 00:00:[address] [facility] Meningococcal B, Recombinant 2018-10-07 00:00:[address] [facility] Meningococcal Polysaccharide (groups A, C, Y and W-135) conjugate vaccine (MCV4P) 2018-10-07 00:00:[address] [facility] Meningococcal B, Recombinant 2018-10-07 00:00:[address] [facility] Meningococcal Polysaccharide (groups A, C, Y and W-135) conjugate vaccine (MCV4P) 2018-10-07 00:00:[address] [facility] Meningococcal Polysaccharide (groups A, C, Y and W-135) conjugate vaccine (MCV4P) 2018-10-07 00:00:[address] [facility] Meningococcal B, Recombinant 2018-10-07 00:00:[address] [facility] Meningococcal B, Recombinant 2018-10-07 00:00:[address] [facility] Meningococcal Polysaccharide (groups A, C, Y and W-135) conjugate vaccine (MCV4P) 2018-10-07 00:00:[address] [facility] Meningococcal B, Recombinant 2018-10-07 00:00:[address] [facility] Meningococcal Polysaccharide (groups A, C, Y and W-135) conjugate vaccine (MCV4P) 2018-10-07 00:00:[address] [facility] Meningococcal B, Recombinant 2018-10-07 00:00:[address] [facility] Meningococcal Polysaccharide (groups A, C, Y and W-135) conjugate vaccine (MCV4P) 2018-10-07 00:00:[address] [facility] Meningococcal B, Recombinant 2018-10-07 00:00:[address] [facility] Meningococcal Polysaccharide (groups A, C, Y and W-135) conjugate vaccine (MCV4P) 2018-10-07 00:00:[address] [facility] Meningococcal B, Recombinant 2018-10-07 00:00:[address] [facility] Meningococcal Polysaccharide (groups A, C, Y and W-135) conjugate vaccine (MCV4P) 2018-10-07 00:00:[address] [facility] Meningococcal B, Recombinant 2018-10-07 00:00:[address] [facility] Meningococcal Polysaccharide (groups A, C, Y and W-135) conjugate vaccine (MCV4P) 2018-10-07 00:00:[address] [facility] Meningococcal B, Recombinant 2018-10-07 00:00:[address] [facility] Meningococcal Polysaccharide (groups A, C, Y and W-135) conjugate vaccine (MCV4P) 2018-10-07 00:00:[address] [facility] Meningococcal B, Recombinant 2018-10-07 00:00:[address] [facility] Meningococcal Polysaccharide (groups A, C, Y and W-135) conjugate vaccine (MCV4P) 2018-10-07 00:00:[address] [facility] Meningococcal B, Recombinant 2018-10-07 00:00:[address] [facility] Meningococcal Polysaccharide (groups A, C, Y and W-135) conjugate vaccine (MCV4P) 2018-10-07 00:00:[address] [facility] Meningococcal B, Recombinant 2018-10-07 00:00:[address] [facility] Meningococcal Polysaccharide (groups A, C, Y and W-135) conjugate vaccine (MCV4P) 2018-10-07 00:00:[address] [facility] Meningococcal B, Recombinant 2018-10-07 00:00:[address] [facility] Meningococcal Polysaccharide (groups A, C, Y and W-135) conjugate vaccine (MCV4P) 2018-10-07 00:00:[address] [facility] Meningococcal B, Recombinant 2018-10-07 00:00:[address] [facility] Meningococcal Polysaccharide (groups A, C, Y and W-135) conjugate vaccine (MCV4P) 2018-10-07 00:00:[address] [facility] Meningococcal B, Recombinant 2018-10-07 00:00:[address] [facility] Meningococcal Polysaccharide (groups A, C, Y and W-135) conjugate vaccine (MCV4P) 2018-10-07 00:00:[address] [facility] Meningococcal B, Recombinant 2018-10-07 00:00:[address] [facility] Meningococcal Polysaccharide (groups A, C, Y and W-135) conjugate vaccine (MCV4P) 2018-10-07 00:00:[address] [facility] Meningococcal B, Recombinant 2018-10-07 00:00:[address] [facility] Meningococcal Polysaccharide (groups A, C, Y and W-135) conjugate vaccine (MCV4P) 2018-10-07 00:00:[address] [facility] Meningococcal B, Recombinant 2018-10-07 00:00:[address] [facility] Meningococcal Polysaccharide (groups A, C, Y and W-135) conjugate vaccine (MCV4P) 2018-10-07 00:00:[address] [facility] Meningococcal B, Recombinant 2018-10-07 00:00:[address] [facility] Meningococcal Polysaccharide (groups A, C, Y and W-135) conjugate vaccine (MCV4P) 2018-10-07 00:00:[address] [facility] Meningococcal B, Recombinant 2018-10-07 00:00:[address] [facility] Meningococcal Polysaccharide (groups A, C, Y and W-135) conjugate vaccine (MCV4P) 2018-10-07 00:00:[address] [facility] Meningococcal B, Recombinant 2018-10-07 00:00:[address] [facility] Meningococcal Polysaccharide (groups A, C, Y and W-135) conjugate vaccine (MCV4P) 2018-10-07 00:00:[address] [facility] Meningococcal B, Recombinant 2018-10-07 00:00:[address] [facility] Meningococcal Polysaccharide (groups A, C, Y and W-135) conjugate vaccine (MCV4P) 2018-10-07 00:00:[address] [facility] Meningococcal B, Recombinant 2018-10-07 00:00:[address] [facility] Meningococcal Polysaccharide (groups A, C, Y and W-135) conjugate vaccine (MCV4P) 2018-10-07 00:00:[address] [facility] Meningococcal B, Recombinant 2018-10-07 00:00:[address] [facility] Meningococcal Polysaccharide (groups A, C, Y and W-135) conjugate vaccine (MCV4P) 2018-10-07 00:00:[address] [facility] Meningococcal B, Recombinant 2018-10-07 00:00:[address] [facility] Meningococcal Polysaccharide (groups A, C, Y and W-135) conjugate vaccine (MCV4P) 2018-10-07 00:00:[address] [facility] Meningococcal B, Recombinant 2018-10-07 00:00:[address] [facility] Meningococcal Polysaccharide (groups A, C, Y and W-135) conjugate vaccine (MCV4P) 2018-10-07 00:00:[address] [facility] Meningococcal B, Recombinant 2018-10-07 00:00:[address] [facility] Meningococcal Polysaccharide (groups A, C, Y and W-135) conjugate vaccine (MCV4P) 2018-10-07 00:00:[address] [facility] Meningococcal B, Recombinant 2018-10-07 00:00:[address] [facility] Meningococcal Polysaccharide (groups A, C, Y and W-135) conjugate vaccine (MCV4P) 2018-10-07 00:00:[address] [facility] Meningococcal B, Recombinant 2018-10-07 00:00:[address] [facility] Meningococcal Polysaccharide (groups A, C, Y and W-135) conjugate vaccine (MCV4P) 2018-10-07 00:00:[address] [facility] Meningococcal B, Recombinant 2018-10-07 00:00:[address] [facility] Meningococcal Polysaccharide (groups A, C, Y and W-135) conjugate vaccine (MCV4P) 2018-10-07 00:00:[address] [facility] Meningococcal B, Recombinant 2018-10-07 00:00:[address] [facility] Meningococcal Polysaccharide (groups A, C, Y and W-135) conjugate vaccine (MCV4P) 2018-10-07 00:00:[address] [facility] Meningococcal B, Recombinant 2018-10-07 00:00:[address] [facility] Meningococcal Polysaccharide (groups A, C, Y and W-135) conjugate vaccine (MCV4P) 2018-10-07 00:00:[address] [facility] Meningococcal B, Recombinant 2018-10-07 00:00:[address] [facility] Meningococcal Polysaccharide (groups A, C, Y and W-135) conjugate vaccine (MCV4P) 2018-10-07 00:00:[address] [facility] Meningococcal B, Recombinant 2018-10-07 00:00:[address] [facility] Meningococcal Polysaccharide (groups A, C, Y and W-135) conjugate vaccine (MCV4P) 2018-10-07 00:00:[address] [facility] Meningococcal B, Recombinant 2018-10-07 00:00:[address] [facility] Meningococcal Polysaccharide (groups A, C, Y and W-135) conjugate vaccine (MCV4P) 2018-10-07 00:00:[address] [facility] Meningococcal B, Recombinant 2018-10-07 00:00:[address] [facility] Meningococcal Polysaccharide (groups A, C, Y and W-135) conjugate vaccine (MCV4P) 2018-10-07 00:00:[address] [facility] Meningococcal B, Recombinant 2018-10-07 00:00:[address] [facility] Meningococcal Polysaccharide (groups A, C, Y and W-135) conjugate vaccine (MCV4P) 2018-10-07 00:00:[address] [facility] Meningococcal B, Recombinant 2018-10-07 00:00:[address] [facility] Meningococcal Polysaccharide (groups A, C, Y and W-135) conjugate vaccine (MCV4P) 2018-10-07 00:00:[address] [facility] Meningococcal B, Recombinant 2018-10-07 00:00:[address] [facility] Meningococcal Polysaccharide (groups A, C, Y and W-135) conjugate vaccine (MCV4P) 2018-10-07 00:00:[address] [facility] Meningococcal Polysaccharide (groups A, C, Y and W-135) conjugate vaccine (MCV4P) 2018-10-07 00:00:[address] [facility] Meningococcal B, Recombinant 2018-10-07 00:00:[address] [facility] Meningococcal B, Recombinant 2018-10-07 00:00:[address] [facility] Meningococcal Polysaccharide (groups A, C, Y and W-135) conjugate vaccine (MCV4P) 2018-10-07 00:00:[address] [facility] Meningococcal B, Recombinant 2018-10-07 00:00:[address] [facility] Meningococcal Polysaccharide (groups A, C, Y and W-135) conjugate vaccine (MCV4P) 2018-10-07 00:00:[address] [facility] Meningococcal B, Recombinant 2018-10-07 00:00:[address] [facility] Meningococcal Polysaccharide (groups A, C, Y and W-135) conjugate vaccine (MCV4P) 2018-10-07 00:00:[address] [facility] Meningococcal B, Recombinant 2018-10-07 00:00:[address] [facility] Meningococcal Polysaccharide (groups A, C, Y and W-135) conjugate vaccine (MCV4P) 2018-10-07 00:00:[address] [facility] Meningococcal B, Recombinant 2018-10-07 00:00:[address] [facility] Meningococcal Polysaccharide (groups A, C, Y and W-135) conjugate vaccine (MCV4P) 2018-10-07 00:00:[address] [facility] Meningococcal B, Recombinant 2018-10-07 00:00:[address] [facility] Meningococcal Polysaccharide (groups A, C, Y and W-135) conjugate vaccine (MCV4P) 2018-10-07 00:00:[address] [facility] Meningococcal B, Recombinant 2018-10-07 00:00:[address] [facility] Meningococcal Polysaccharide (groups A, C, Y and W-135) conjugate vaccine (MCV4P) 2018-10-07 00:00:[address] [facility] Meningococcal B, Recombinant 2018-10-07 00:00:[address] [facility] Meningococcal Polysaccharide (groups A, C, Y and W-135) conjugate vaccine (MCV4P) 2018-10-07 00:00:[address] [facility] Meningococcal B, Recombinant 2018-10-07 00:00:[address] [facility] Meningococcal Polysaccharide (groups A, C, Y and W-135) conjugate vaccine (MCV4P) 2018-10-07 00:00:[address] [facility] Meningococcal B, Recombinant 2018-10-07 00:00:[address] [facility] Meningococcal Polysaccharide (groups A, C, Y and W-135) conjugate vaccine (MCV4P) 2018-10-07 00:00:[address] [facility] Meningococcal B, Recombinant 2018-10-07 00:00:[address] [facility] Meningococcal Polysaccharide (groups A, C, Y and W-135) conjugate vaccine (MCV4P) 2018-10-07 00:00:[address] [facility] Meningococcal B, Recombinant 2018-10-07 00:00:[address] [facility] Meningococcal Polysaccharide (groups A, C, Y and W-135) conjugate vaccine (MCV4P) 2018-10-07 00:00:[address] [facility] Meningococcal B, Recombinant 2018-10-07 00:00:[address] [facility] Meningococcal Polysaccharide (groups A, C, Y and W-135) conjugate vaccine (MCV4P) 2018-10-07 00:00:[address] [facility] Meningococcal B, Recombinant 2018-10-07 00:00:[address] [facility] Meningococcal Polysaccharide (groups A, C, Y and W-135) conjugate vaccine (MCV4P) 2018-10-07 00:00:[address] [facility] Meningococcal B, Recombinant 2018-10-07 00:00:[address] [facility] Meningococcal Polysaccharide (groups A, C, Y and W-135) conjugate vaccine (MCV4P) 2018-10-07 00:00:[address] [facility] Meningococcal B, Recombinant 2018-10-07 00:00:[address] [facility] Meningococcal Polysaccharide (groups A, C, Y and W-135) conjugate vaccine (MCV4P) 2018-10-07 00:00:[address] [facility] Meningococcal B, Recombinant 2018-10-07 00:00:[address] [facility] Meningococcal Polysaccharide (groups A, C, Y and W-135) conjugate vaccine (MCV4P) 2018-10-07 00:00:[address] [facility] Meningococcal B, Recombinant 2018-10-07 00:00:[address] [facility] Meningococcal Polysaccharide (groups A, C, Y and W-135) conjugate vaccine (MCV4P) 2018-10-07 00:00:[address] [facility] Meningococcal B, Recombinant 2018-10-07 00:00:[address] [facility] Meningococcal Polysaccharide (groups A, C, Y and W-135) conjugate vaccine (MCV4P) 2018-10-07 00:00:[address] [facility] Meningococcal B, Recombinant 2018-10-07 00:00:[address] [facility] Meningococcal Polysaccharide (groups A, C, Y and W-135) conjugate vaccine (MCV4P) 2018-10-07 00:00:[address] [facility] Meningococcal B, Recombinant 2018-10-07 00:00:[address] [facility] Meningococcal Polysaccharide (groups A, C, Y and W-135) conjugate vaccine (MCV4P) 2018-10-07 00:00:[address] [facility] Meningococcal B, Recombinant 2018-10-07 00:00:[address] [facility] Meningococcal Polysaccharide (groups A, C, Y and W-135) conjugate vaccine (MCV4P) 2018-10-07 00:00:[address] [facility] Meningococcal B, Recombinant 2018-10-07 00:00:[address] [facility] Meningococcal Polysaccharide (groups A, C, Y and W-135) conjugate vaccine (MCV4P) 2018-10-07 00:00:[address] [facility] Meningococcal B, Recombinant 2018-10-07 00:00:[address] [facility] Meningococcal Polysaccharide (groups A, C, Y and W-135) conjugate vaccine (MCV4P) 2018-10-07 00:00:[address] [facility] Meningococcal B, Recombinant 2018-10-07 00:00:[address] [facility] Meningococcal Polysaccharide (groups A, C, Y and W-135) conjugate vaccine (MCV4P) 2018-10-07 00:00:[address] [facility] Meningococcal B, Recombinant 2018-10-07 00:00:[address] [facility] Meningococcal Polysaccharide (groups A, C, Y and W-135) conjugate vaccine (MCV4P) 2018-10-07 00:00:[address] [facility] Meningococcal B, Recombinant 2018-10-07 00:00:[address] [facility] Meningococcal Polysaccharide (groups A, C, Y and W-135) conjugate vaccine (MCV4P) 2018-10-07 00:00:[address] [facility] Meningococcal B, Recombinant 2018-10-07 00:00:[address] [facility] Meningococcal Polysaccharide (groups A, C, Y and W-135) conjugate vaccine (MCV4P) 2018-10-07 00:00:[address] [facility] Meningococcal B, Recombinant 2018-10-07 00:00:[address] [facility] Meningococcal Polysaccharide (groups A, C, Y and W-135) conjugate vaccine (MCV4P) 2018-10-07 00:00:[address] [facility] Meningococcal B, Recombinant 2018-10-07 00:00:[address] [facility] Meningococcal Polysaccharide (groups A, C, Y and W-135) conjugate vaccine (MCV4P) 2018-10-07 00:00:[address] [facility] Meningococcal B, Recombinant 2018-10-07 00:00:[address] [facility] Meningococcal Polysaccharide (groups A, C, Y and W-135) conjugate vaccine (MCV4P) 2018-10-07 00:00:[address] [facility] Meningococcal B, Recombinant 2018-10-07 00:00:[address] [facility] Meningococcal Polysaccharide (groups A, C, Y and W-135) conjugate vaccine (MCV4P) 2018-10-07 00:00:00 [facility] [facility] Meningococcal B, Recombinant 2018-10-07 00:00:[address] [facility] Meningococcal Polysaccharide (groups A, C, Y and W-135) conjugate vaccine (MCV4P) 2018-10-07 00:00:[address] [facility] Meningococcal B, Recombinant 2018-10-07 00:00:[address] [facility] Meningococcal Polysaccharide (groups A, C, Y and W-135) conjugate vaccine (MCV4P) 2018-10-07 00:00:[address] [facility] Meningococcal B, Recombinant 2018-10-07 00:00:[address] [facility] Meningococcal Polysaccharide (groups A, C, Y and W-135) conjugate vaccine (MCV4P) 2018-10-07 00:00:[address] [facility] Meningococcal B, Recombinant 2018-10-07 00:00:[address] [facility] Meningococcal Polysaccharide (groups A, C, Y and W-135) conjugate vaccine (MCV4P) 2018-10-07 00:00:[address] [facility] Meningococcal B, Recombinant 2018-10-07 00:00:[address] [facility] Meningococcal Polysaccharide (groups A, C, Y and W-135) conjugate vaccine (MCV4P) 2018-10-07 00:00:[address] [facility] Meningococcal B, Recombinant 2018-10-07 00:00:[address] [facility] Meningococcal Polysaccharide (groups A, C, Y and W-135) conjugate vaccine (MCV4P) 2018-10-07 00:00:[address] [facility] Meningococcal B, Recombinant 2018-10-07 00:00:[address] [facility] Meningococcal Polysaccharide (groups A, C, Y and W-135) conjugate vaccine (MCV4P) 2018-10-07 00:00:[address] [facility] Meningococcal B, Recombinant 2018-10-07 00:00:[address] [facility] Meningococcal Polysaccharide (groups A, C, Y and W-135) conjugate vaccine (MCV4P) 2018-10-07 00:00:[address] [facility] Meningococcal B, Recombinant 2018-10-07 00:00:[address] [facility] Meningococcal Polysaccharide (groups A, C, Y and W-135) conjugate vaccine (MCV4P) 2018-10-07 00:00:[address] [facility] Meningococcal B, Recombinant 2018-10-07 00:00:[address] [facility] Meningococcal Polysaccharide (groups A, C, Y and W-135) conjugate vaccine (MCV4P) 2018-10-07 00:00:[address] [facility] Meningococcal B, Recombinant 2018-10-07 00:00:[address] [facility] Meningococcal Polysaccharide (groups A, C, Y and W-135) conjugate vaccine (MCV4P) 2018-10-07 00:00:[address] [facility] Meningococcal B, Recombinant 2018-10-07 00:00:[address] [facility] Meningococcal Polysaccharide (groups A, C, Y and W-135) conjugate vaccine (MCV4P) 2018-10-07 00:00:[address] [facility] Meningococcal B, Recombinant 2018-10-07 00:00:[address] [facility] Meningococcal Polysaccharide (groups A, C, Y and W-135) conjugate vaccine (MCV4P) 2018-10-07 00:00:[address] [facility] Meningococcal B, Recombinant 2018-10-07 00:00:[address] [facility] Meningococcal Polysaccharide (groups A, C, Y and W-135) conjugate vaccine (MCV4P) 2018-10-07 00:00:[address] [facility] Meningococcal B, Recombinant 2018-10-07 00:00:[address] [facility] Meningococcal Polysaccharide (groups A, C, Y and W-135) conjugate vaccine (MCV4P) 2018-10-07 00:00:[address] [facility] Meningococcal B, Recombinant 2018-10-07 00:00:[address] [facility] Meningococcal Polysaccharide (groups A, C, Y and W-135) conjugate vaccine (MCV4P) 2018-10-07 00:00:[address] [facility] Meningococcal B, Recombinant 2018-10-07 00:00:[address] [facility] Meningococcal Polysaccharide (groups A, C, Y and W-135) conjugate vaccine (MCV4P) 2018-10-07 00:00:[address] [facility] Meningococcal B, Recombinant 2018-10-07 00:00:[address] [facility] Influenza Virus Vaccine Quad .5 mL IM 6+ MO 2018-04-06 00:00:[address] [facility] Influenza Virus Vaccine Quad .5 mL IM 6+ MO 2018-04-06 00:00:[address] [facility] Influenza Virus Vaccine Quad .5 mL IM 6+ MO 2018-04-06 00:00:[address] [facility] Influenza Virus Vaccine Quad .5 mL IM 6+ MO 2018-04-06 00:00:[address] [facility] Influenza Virus Vaccine Quad .5 mL IM 6+ MO 2018-04-06 00:00:[address] [facility] Influenza Virus Vaccine Quad .5 mL IM 6+ MO 2018-04-06 00:00:[address] [facility] Influenza Virus Vaccine Quad .5 mL IM 6+ MO 2018-04-06 00:00:[address] [facility] Influenza Virus Vaccine Quad .5 mL IM 6+ MO 2018-04-06 00:00:[address] [facility] Influenza Virus Vaccine Quad .5 mL IM 6+ MO 2018-04-06 00:00:[address] [facility] Influenza Virus Vaccine Quad .5 mL IM 6+ MO 2018-04-06 00:00:[address] [facility] Influenza Virus Vaccine Quad .5 mL IM 6+ MO 2018-04-06 00:00:[address] [facility] Influenza Virus Vaccine Quad .5 mL IM 6+ MO 2018-04-06 00:00:[address] [facility] Influenza Virus Vaccine Quad .5 mL IM 6+ MO 2018-04-06 00:00:[address] [facility] Influenza Virus Vaccine Quad .5 mL IM 6+ MO 2018-04-06 00:00:[address] [facility] Influenza Virus Vaccine Quad .5 mL IM 6+ MO 2018-04-06 00:00:[address] [facility] Influenza Virus Vaccine Quad .5 mL IM 6+ MO 2018-04-06 00:00:[address] [facility] Influenza Virus Vaccine Quad .5 mL IM 6+ MO 2018-04-06 00:00:[address] [facility] Influenza Virus Vaccine Quad .5 mL IM 6+ MO 2018-04-06 00:00:[address] [facility] Influenza Virus Vaccine Quad .5 mL IM 6+ MO 2018-04-06 00:00:[address] [facility] Influenza Virus Vaccine Quad .5 mL IM 6+ MO 2018-04-06 00:00:[address] [facility] Influenza Virus Vaccine Quad .5 mL IM 6+ MO 2018-04-06 00:00:[address] [facility] Influenza Virus Vaccine Quad .5 mL IM 6+ MO 2018-04-06 00:00:[address] [facility] Influenza Virus Vaccine Quad .5 mL IM 6+ MO 2018-04-06 00:00:[address] [facility] Influenza Virus Vaccine Quad .5 mL IM 6+ MO 2018-04-06 00:00:[address] [facility] Influenza Virus Vaccine Quad .5 mL IM 6+ MO 2018-04-06 00:00:[address] [facility] Influenza Virus Vaccine Quad .5 mL IM 6+ MO 2018-04-06 00:00:[address] [facility] Influenza Virus Vaccine Quad .5 mL IM 6+ MO 2018-04-06 00:00:[address] [facility] Influenza Virus Vaccine Quad .5 mL IM 6+ MO 2018-04-06 00:00:[address] [facility] Influenza Virus Vaccine Quad .5 mL IM 6+ MO 2018-04-06 00:00:[address] [facility] Influenza Virus Vaccine Quad .5 mL IM 6+ MO 2018-04-06 00:00:[address] [facility] Influenza Virus Vaccine Quad .5 mL IM 6+ MO 2018-04-06 00:00:[address] [facility] Influenza Virus Vaccine Quad .5 mL IM 6+ MO 2018-04-06 00:00:[address] [facility] Influenza Virus Vaccine Quad .5 mL IM 6+ MO 2018-04-06 00:00:[address] [facility] Influenza Virus Vaccine Quad .5 mL IM 6+ MO 2018-04-06 00:00:[address] [facility] Influenza Virus Vaccine Quad .5 mL IM 6+ MO 2018-04-06 00:00:[address] [facility] Influenza Virus Vaccine Quad .5 mL IM 6+ MO 2018-04-06 00:00:[address] [facility] Influenza Virus Vaccine Quad .5 mL IM 6+ MO 2018-04-06 00:00:[address] [facility] Influenza Virus Vaccine Quad .5 mL IM 6+ MO 2018-04-06 00:00:[address] [facility] Influenza Virus Vaccine Quad .5 mL IM 6+ MO 2018-04-06 00:00:[address] [facility] Influenza Virus Vaccine Quad .5 mL IM 6+ MO 2018-04-06 00:00:[address] [facility] Influenza Virus Vaccine Quad .5 mL IM 6+ MO 2018-04-06 00:00:[address] [facility] Influenza Virus Vaccine Quad .5 mL IM 6+ MO 2018-04-06 00:00:[address] [facility] Influenza Virus Vaccine Quad .5 mL IM 6+ MO 2018-04-06 00:00:[address] [facility] Influenza Virus Vaccine Quad .5 mL IM 6+ MO 2018-04-06 00:00:[address] [facility] Influenza Virus Vaccine Quad .5 mL IM 6+ MO 2018-04-06 00:00:[address] [facility] Influenza Virus Vaccine Quad .5 mL IM 6+ MO 2018-04-06 00:00:[address] [facility] Influenza Virus Vaccine Quad .5 mL IM 6+ MO 2018-04-06 00:00:[address] [facility] Influenza Virus Vaccine Quad .5 mL IM 6+ MO 2018-04-06 00:00:[address] [facility] Influenza Virus Vaccine Quad .5 mL IM 6+ MO 2018-04-06 00:00:[address] [facility] Influenza Virus Vaccine Quad .5 mL IM 6+ MO 2018-04-06 00:00:[address] [facility] Influenza Virus Vaccine Quad .5 mL IM 6+ MO 2018-04-06 00:00:[address] [facility] Influenza Virus Vaccine Quad .5 mL IM 6+ MO 2018-04-06 00:00:[address] [facility] Influenza Virus Vaccine Quad .5 mL IM 6+ MO 2018-04-06 00:00:00 Completed [facility] Influenza Virus Vaccine Quad .5 mL IM 6+ MO 2018-04-06 00:00:[address] [facility] Influenza Virus Vaccine Quad .5 mL IM 6+ MO 2018-04-06 00:00:[address] [facility] Influenza Virus Vaccine Quad .5 mL IM 6+ MO 2018-04-06 00:00:[address] [facility] Influenza Virus Vaccine Quad .5 mL IM 6+ MO 2018-04-06 00:00:[address] [facility] Influenza Virus Vaccine Quad .5 mL IM 6+ MO 2018-04-06 00:00:[address] [facility] Influenza Virus Vaccine Quad .5 mL IM 6+ MO 2018-04-06 00:00:[address] [facility] Influenza Virus Vaccine Quad .5 mL IM 6+ MO 2018-04-06 00:00:[address] [facility] Influenza Virus Vaccine Quad .5 mL IM 6+ MO 2018-04-06 00:00:[address] [facility] Influenza Virus Vaccine Quad .5 mL IM 6+ MO 2018-04-06 00:00:[address] [facility] Influenza Virus Vaccine Quad .5 mL IM 6+ MO 2018-04-06 00:00:[address] [facility] Influenza Virus Vaccine Quad .5 mL IM 6+ MO 2018-04-06 00:00:[address] [facility] Influenza Virus Vaccine Quad .5 mL IM 6+ MO 2018-04-06 00:00:[address] [facility] Influenza Virus Vaccine Quad .5 mL IM 6+ MO 2018-04-06 00:00:[address] [facility] Influenza Virus Vaccine Quad .5 mL IM 6+ MO 2018-04-06 00:00:[address] [facility] Influenza Virus Vaccine Quad .5 mL IM 6+ MO 2018-04-06 00:00:[address] [facility] Influenza Virus Vaccine Quad .5 mL IM 6+ MO 2018-04-06 00:00:[address] [facility] Influenza Virus Vaccine Quad .5 mL IM 6+ MO 2018-04-06 00:00:[address] [facility] Influenza Virus Vaccine Quad .5 mL IM 6+ MO 2018-04-06 00:00:[address] [facility] Influenza Virus Vaccine Quad .5 mL IM 6+ MO 2018-04-06 00:00:[address] [facility] Influenza Virus Vaccine Quad .5 mL IM 6+ MO 2018-04-06 00:00:[address] [facility] Influenza Virus Vaccine Quad .5 mL IM 6+ MO 2018-04-06 00:00:[address] [facility] Influenza Virus Vaccine Quad .5 mL IM 6+ MO 2018-04-06 00:00:[address] [facility] Influenza Virus Vaccine Quad .5 mL IM 6+ MO 2018-04-06 00:00:[address] [facility] Influenza Virus Vaccine Quad .5 mL IM 6+ MO 2018-04-06 00:00:[address] [facility] Influenza Virus Vaccine Quad .5 mL IM 6+ MO 2018-04-06 00:00:[address] [facility] Influenza Virus Vaccine Quad .5 mL IM 6+ MO 2018-04-06 00:00:[address] [facility] Influenza Virus Vaccine Quad .5 mL IM 6+ MO 2018-04-06 00:00:[address] [facility] Influenza Virus Vaccine Quad .5 mL IM 6+ MO 2018-04-06 00:00:[address] [facility] Influenza Virus Vaccine Quad .5 mL IM 6+ MO 2018-04-06 00:00:[address] [facility] Influenza Virus Vaccine Quad .5 mL IM 6+ MO 2018-04-06 00:00:[address] [facility] Influenza Virus Vaccine Quad .5 mL IM 6+ MO 2018-04-06 00:00:[address] [facility] Influenza Virus Vaccine Quad .5 mL IM 6+ MO (FLUZONE/FLULAVAL/FL UARIX) 2018-04-06 00:00:[address] [facility] Influenza Virus Vaccine Quad .5 mL IM 6+ MO (FLUZONE/FLULAVAL/FL UARIX) 2018-04-06 00:00:[address] [facility] Influenza Virus Vaccine Quad .5 mL IM 6+ MO (FLUZONE/FLULAVAL/FL UARIX) 2018-04-06 00:00:[address] [facility] Influenza Virus Vaccine Quad .5 mL IM 6+ MO (FLUZONE/FLULAVAL/FL UARIX) 2018-04-06 00:00:[address] [facility] Influenza Virus Vaccine Quad .5 mL IM 6+ MO 2018-04-06 00:00:[address] [facility] Influenza Virus Vaccine Quad .5 mL IM 6+ MO 2018-04-06 00:00:[address] [facility] Influenza Virus Vaccine Quad .5 mL IM 6+ MO 2018-04-06 00:00:[address] [facility] Influenza Virus Vaccine Quad .5 mL IM 6+ MO 2018-04-06 00:00:[address] [facility] Influenza Virus Vaccine Quad .5 mL IM 6+ MO 2018-04-06 00:00:[address] [facility] Influenza Virus Vaccine Quad .5 mL IM 6+ MO 2018-04-06 00:00:[address] [facility] Influenza Virus Vaccine Quad .5 mL IM 6+ MO 2018-04-06 00:00:[address] [facility] Influenza Virus Vaccine Quad .5 mL IM 6+ MO 2018-04-06 00:00:[address] [facility] Influenza Virus Vaccine Quad .5 mL IM 6+ MO 2018-04-06 00:00:[address] [facility] Influenza Virus Vaccine Quad .5 mL IM 6+ MO 2018-04-06 00:00:[address] [facility] Influenza Virus Vaccine Quad .5 mL IM 6+ MO 2018-04-06 00:00:[address] [facility] Influenza Virus Vaccine Quad .5 mL IM 6+ MO 2018-04-06 00:00:[address] [facility] Influenza Virus Vaccine Quad .5 mL IM 6+ MO 2018-04-06 00:00:[address] [facility] Influenza Virus Vaccine Quad .5 mL IM 6+ MO 2018-04-06 00:00:[address] [facility] Influenza Virus Vaccine Quad .5 mL IM 6+ MO 2018-04-06 00:00:[address] [facility] Varicella (varivax)(chicken pox) 2013-05-05 00:00:[address] [facility] Varicella (varivax)(chicken pox) 2013-05-05 00:00:[address] [facility] Varicella (varivax)(chicken pox) 2013-05-05 00:00:[address] [facility] Varicella (varivax)(chicken pox) 2013-05-05 00:00:[address] [facility] Varicella (varivax)(chicken pox) 2013-05-05 00:00:[address] [facility] Varicella (varivax)(chicken pox) 2013-05-05 00:00:[address] [facility] Varicella (varivax)(chicken pox) 2013-05-05 00:00:[address] [facility] Varicella (varivax)(chicken pox) 2013-05-05 00:00:[address] [facility] Varicella (varivax)(chicken pox) 2013-05-05 00:00:[address] [facility] Varicella (varivax)(chicken pox) 2013-05-05 00:00:[address] [facility] Varicella (varivax)(chicken pox) 2013-05-05 00:00:[address] [facility] Varicella (varivax)(chicken pox) 2013-05-05 00:00:[address] [facility] Varicella (varivax)(chicken pox) 2013-05-05 00:00:[address] [facility] Varicella (varivax)(chicken pox) 2013-05-05 00:00:[address] [facility] Varicella (varivax)(chicken pox) 2013-05-05 00:00:[address] [facility] Varicella (varivax)(chicken pox) 2013-05-05 00:00:[address] [facility] Varicella (varivax)(chicken pox) 2013-05-05 00:00:[address] [facility] Varicella (varivax)(chicken pox) 2013-05-05 00:00:[address] [facility] Varicella (varivax)(chicken pox) 2013-05-05 00:00:[address] [facility] Varicella (varivax)(chicken pox) 2013-05-05 00:00:[address] [facility] Varicella (varivax)(chicken pox) 2013-05-05 00:00:[address] [facility] Varicella (varivax)(chicken pox) 2013-05-05 00:00:[address] [facility] Varicella (varivax)(chicken pox) 2013-05-05 00:00:[address] [facility] Varicella (varivax)(chicken pox) 2013-05-05 00:00:[address] [facility] Varicella (varivax)(chicken pox) 2013-05-05 00:00:[address] [facility] Varicella (varivax)(chicken pox) 2013-05-05 00:00:[address] [facility] Varicella (varivax)(chicken pox) 2013-05-05 00:00:[address] [facility] Varicella (varivax)(chicken pox) 2013-05-05 00:00:[address] [facility] Varicella (varivax)(chicken pox) 2013-05-05 00:00:[address] [facility] Varicella (varivax)(chicken pox) 2013-05-05 00:00:[address] [facility] Varicella (varivax)(chicken pox) 2013-05-05 00:00:[address] [facility] Varicella (varivax)(chicken pox) 2013-05-05 00:00:[address] [facility] Varicella (varivax)(chicken pox) 2013-05-05 00:00:[address] [facility] Varicella (varivax)(chicken pox) 2013-05-05 00:00:[address] [facility] Varicella (varivax)(chicken pox) 2013-05-05 00:00:[address] [facility] Varicella (varivax)(chicken pox) 2013-05-05 00:00:[address] [facility] Varicella (varivax)(chicken pox) 2013-05-05 00:00:[address] [facility] Varicella (varivax)(chicken pox) 2013-05-05 00:00:[address] [facility] Varicella (varivax)(chicken pox) 2013-05-05 00:00:[address] [facility] Varicella (varivax)(chicken pox) 2013-05-05 00:00:[address] [facility] Varicella (varivax)(chicken pox) 2013-05-05 00:00:[address] [facility] Varicella (varivax)(chicken pox) 2013-05-05 00:00:[address] [facility] Varicella (varivax)(chicken pox) 2013-05-05 00:00:[address] [facility] Varicella (varivax)(chicken pox) 2013-05-05 00:00:[address] [facility] Varicella (varivax)(chicken pox) 2013-05-05 00:00:[address] [facility] Varicella (varivax)(chicken pox) 2013-05-05 00:00:[address] [facility] Varicella (varivax)(chicken pox) 2013-05-05 00:00:[address] [facility] Varicella (varivax)(chicken pox) 2013-05-05 00:00:[address] [facility] Varicella (varivax)(chicken pox) 2013-05-05 00:00:[address] [facility] Varicella (varivax)(chicken pox) 2013-05-05 00:00:[address] [facility] Varicella (varivax)(chicken pox) 2013-05-05 00:00:[address] [facility] Varicella (varivax)(chicken pox) 2013-05-05 00:00:[address] [facility] Varicella (varivax)(chicken pox) 2013-05-05 00:00:[address] [facility] Varicella (varivax)(chicken pox) 2013-05-05 00:00:[address] [facility] Varicella (varivax)(chicken pox) 2013-05-05 00:00:[address] [facility] Varicella (varivax)(chicken pox) 2013-05-05 00:00:[address] [facility] Varicella (varivax)(chicken pox) 2013-05-05 00:00:[address] [facility] Varicella (varivax)(chicken pox) 2013-05-05 00:00:[address] [facility] Varicella (varivax)(chicken pox) 2013-05-05 00:00:[address] [facility] Varicella (varivax)(chicken pox) 2013-05-05 00:00:[address] [facility] Varicella (varivax)(chicken pox) 2013-05-05 00:00:[address] [facility] Varicella (varivax)(chicken pox) 2013-05-05 00:00:[address] [facility] Varicella (varivax)(chicken pox) 2013-05-05 00:00:[address] [facility] Varicella (varivax)(chicken pox) 2013-05-05 00:00:[address] [facility] Varicella (varivax)(chicken pox) 2013-05-05 00:00:[address] [facility] Varicella (varivax)(chicken pox) 2013-05-05 00:00:[address] [facility] Varicella (varivax)(chicken pox) 2013-05-05 00:00:[address] [facility] Varicella (varivax)(chicken pox) 2013-05-05 00:00:[address] [facility] Varicella (varivax)(chicken pox) 2013-05-05 00:00:[address] [facility] Varicella (varivax)(chicken pox) 2013-05-05 00:00:[address] [facility] Varicella (varivax)(chicken pox) 2013-05-05 00:00:[address] [facility] Varicella (varivax)(chicken pox) 2013-05-05 00:00:[address] [facility] Varicella (varivax)(chicken pox) 2013-05-05 00:00:[address] [facility] Varicella (varivax)(chicken pox) 2013-05-05 00:00:[address] [facility] Varicella (varivax)(chicken pox) 2013-05-05 00:00:[address] [facility] Varicella (varivax)(chicken pox) 2013-05-05 00:00:[address] [facility] Varicella (varivax)(chicken pox) 2013-05-05 00:00:[address] [facility] Varicella (varivax)(chicken pox) 2013-05-05 00:00:[address] [facility] Varicella (varivax)(chicken pox) 2013-05-05 00:00:[address] [facility] Varicella (varivax)(chicken pox) 2013-05-05 00:00:[address] [facility] Varicella (varivax)(chicken pox) 2013-05-05 00:00:[address] [facility] Varicella (varivax)(chicken pox) 2013-05-05 00:00:[address] [facility] Varicella (varivax)(chicken pox) 2013-05-05 00:00:[address] [facility] Varicella (varivax)(chicken pox) 2013-05-05 00:00:[address] [facility] Varicella (varivax)(chicken pox) 2013-05-05 00:00:[address] [facility] Varicella (varivax)(chicken pox) 2013-05-05 00:00:[address] [facility] Varicella (varivax)(chicken pox) 2013-05-05 00:00:[address] [facility] Varicella (varivax)(chicken pox) 2013-05-05 00:00:[address] [facility] Varicella (varivax)(chicken pox) 2013-05-05 00:00:[address] [facility] Varicella (varivax)(chicken pox) 2013-05-05 00:00:[address] [facility] Varicella (varivax)(chicken pox) 2013-05-05 00:00:[address] [facility] Varicella (varivax)(chicken pox) 2013-05-05 00:00:[address] [facility] Varicella (varivax)(chicken pox) 2013-05-05 00:00:[address] [facility] Varicella (varivax)(chicken pox) 2013-05-05 00:00:[address] [facility] Varicella (varivax)(chicken pox) 2013-05-05 00:00:[address] [facility] Varicella (varivax)(chicken pox) 2013-05-05 00:00:[address] [facility] Varicella (varivax)(chicken pox) 2013-05-05 00:00:[address] [facility] Varicella (varivax)(chicken pox) 2013-05-05 00:00:[address] [facility] Varicella (varivax)(chicken pox) 2013-05-05 00:00:[address] [facility] Varicella (varivax)(chicken pox) 2013-05-05 00:00:[address] [facility] Varicella (varivax)(chicken pox) 2013-05-05 00:00:[address] [facility] Varicella (varivax)(chicken pox) 2013-05-05 00:00:[address] [facility] Varicella (varivax)(chicken pox) 2013-05-05 00:00:[address] [facility] Meningococcal Polysaccharide (groups A, C, Y and W-135) conjugate vaccine (MCV4P) 2013-04-18 00:00:[address] [facility] Tdap 2013-04-18 00:00:[address] [facility] Meningococcal Polysaccharide (groups A, C, Y and W-135) conjugate vaccine (MCV4P) 2013-04-18 00:00:[address] [facility] Meningococcal Polysaccharide (groups A, C, Y and W-135) conjugate vaccine (MCV4P) 2013-04-18 00:00:[address] [facility] Tdap 2013-04-18 00:00:[address] [facility] Meningococcal Polysaccharide (groups A, C, Y and W-135) conjugate vaccine (MCV4P) 2013-04-18 00:00:[address] [facility] Tdap 2013-04-18 00:00:[address] [facility] Tdap 2013-04-18 00:00:[address] [facility] Meningococcal Polysaccharide (groups A, C, Y and W-135) conjugate vaccine (MCV4P) 2013-04-18 00:00:[address] [facility] Tdap 2013-04-18 00:00:[address] [facility] Meningococcal Polysaccharide (groups A, C, Y and W-135) conjugate vaccine (MCV4P) 2013-04-18 00:00:[address] [facility] Tdap 2013-04-18 00:00:[address] [facility] Meningococcal Polysaccharide (groups A, C, Y and W-135) conjugate vaccine (MCV4P) 2013-04-18 00:00:[address] [facility] Tdap 2013-04-18 00:00:[address] [facility] Meningococcal Polysaccharide (groups A, C, Y and W-135) conjugate vaccine (MCV4P) 2013-04-18 00:00:[address] [facility] Tdap 2013-04-18 00:00:[address] [facility] Meningococcal Polysaccharide (groups A, C, Y and W-135) conjugate vaccine (MCV4P) 2013-04-18 00:00:[address] [facility] Tdap 2013-04-18 00:00:[address] [facility] Meningococcal Polysaccharide (groups A, C, Y and W-135) conjugate vaccine (MCV4P) 2013-04-18 00:00:[address] [facility] TDAP 2013-04-18 00:00:[address] [facility] Meningococcal Polysaccharide (groups A, C, Y and W-135) conjugate vaccine (MCV4P) 2013-04-18 00:00:[address] [facility] TDAP 2013-04-18 00:00:[address] [facility] Meningococcal Polysaccharide (groups A, C, Y and W-135) conjugate vaccine (MCV4P) 2013-04-18 00:00:[address] [facility] Meningococcal Polysaccharide (groups A, C, Y and W-135) conjugate vaccine (MCV4P) 2013-04-18 00:00:[address] [facility] TDAP 2013-04-18 00:00:[address] [facility] Meningococcal Polysaccharide (groups A, C, Y and W-135) conjugate vaccine (MCV4P) 2013-04-18 00:00:[address] [facility] TDAP 2013-04-18 00:00:[address] [facility] Tdap 2013-04-18 00:00:[address] [facility] Meningococcal Polysaccharide (groups A, C, Y and W-135) conjugate vaccine (MCV4P) 2013-04-18 00:00:[address] [facility] TDAP 2013-04-18 00:00:[address] [facility] Meningococcal Polysaccharide (groups A, C, Y and W-135) conjugate vaccine (MCV4P) 2013-04-18 00:00:[address] [facility] TDAP 2013-04-18 00:00:[address] [facility] Meningococcal Polysaccharide (groups A, C, Y and W-135) conjugate vaccine (MCV4P) 2013-04-18 00:00:[address] [facility] TDAP 2013-04-18 00:00:[address] [facility] Meningococcal Polysaccharide (groups A, C, Y and W-135) conjugate vaccine (MCV4P) 2013-04-18 00:00:[address] [facility] TDAP 2013-04-18 00:00:[address] [facility] Meningococcal Polysaccharide (groups A, C, Y and W-135) conjugate vaccine (MCV4P) 2013-04-18 00:00:[address] [facility] TDAP 2013-04-18 00:00:[address] [facility] Meningococcal Polysaccharide (groups A, C, Y and W-135) conjugate vaccine (MCV4P) 2013-04-18 00:00:[address] [facility] TDAP 2013-04-18 00:00:[address] [facility] Meningococcal Polysaccharide (groups A, C, Y and W-135) conjugate vaccine (MCV4P) 2013-04-18 00:00:[address] [facility] TDAP 2013-04-18 00:00:[address] [facility] Meningococcal Polysaccharide (groups A, C, Y and W-135) conjugate vaccine (MCV4P) 2013-04-18 00:00:[address] [facility] TDAP 2013-04-18 00:00:[address] [facility] Meningococcal Polysaccharide (groups A, C, Y and W-135) conjugate vaccine (MCV4P) 2013-04-18 00:00:[address] [facility] TDAP 2013-04-18 00:00:[address] [facility] Meningococcal Polysaccharide (groups A, C, Y and W-135) conjugate vaccine (MCV4P) 2013-04-18 00:00:[address] [facility] Meningococcal Polysaccharide (groups A, C, Y and W-135) conjugate vaccine (MCV4P) 2013-04-18 00:00:[address] [facility] TDAP 2013-04-18 00:00:[address] [facility] Meningococcal Polysaccharide (groups A, C, Y and W-135) conjugate vaccine (MCV4P) 2013-04-18 00:00:[address] [facility] Tdap 2013-04-18 00:00:[address] [facility] TDAP 2013-04-18 00:00:[address] [facility] Meningococcal Polysaccharide (groups A, C, Y and W-135) conjugate vaccine (MCV4P) 2013-04-18 00:00:[address] [facility] TDAP 2013-04-18 00:00:[address] [facility] Meningococcal Polysaccharide (groups A, C, Y and W-135) conjugate vaccine (MCV4P) 2013-04-18 00:00:[address] [facility] TDAP 2013-04-18 00:00:[address] [facility] Meningococcal Polysaccharide (groups A, C, Y and W-135) conjugate vaccine (MCV4P) 2013-04-18 00:00:[address] [facility] TDAP 2013-04-18 00:00:[address] [facility] Meningococcal Polysaccharide (groups A, C, Y and W-135) conjugate vaccine (MCV4P) 2013-04-18 [facility] [facility] Meningococcal Polysaccharide (groups A, C, Y and W-135) conjugate vaccine (MCV4P) 2013-04-18 00:00:[address] [facility] TDAP 2013-04-18 00:00:[address] [facility] Meningococcal Polysaccharide (groups A, C, Y and W-135) conjugate vaccine (MCV4P) 2013-04-18 00:00:[address] [facility] TDAP 2013-04-18 00:00:[address] [facility] Meningococcal Polysaccharide (groups A, C, Y and W-135) conjugate vaccine (MCV4P) 2013-04-18 00:00:[address] [facility] Meningococcal Polysaccharide (groups A, C, Y and W-135) conjugate vaccine (MCV4P) 2013-04-18 00:00:[address] [facility] TDAP 2013-04-18 00:00:[address] [facility] Tdap 2013-04-18 00:00:[address] [facility] Meningococcal Polysaccharide (groups A, C, Y and W-135) conjugate vaccine (MCV4P) 2013-04-18 00:00:[address] [facility] TDAP 2013-04-18 00:00:[address] [facility] Meningococcal Polysaccharide (groups A, C, Y and W-135) conjugate vaccine (MCV4P) 2013-04-18 00:00:[address] [facility] TDAP 2013-04-18 00:00:[address] [facility] Meningococcal Polysaccharide (groups A, C, Y and W-135) conjugate vaccine (MCV4P) 2013-04-18 00:00:[address] [facility] TDAP 2013-04-18 00:00:[address] [facility] Meningococcal Polysaccharide (groups A, C, Y and W-135) conjugate vaccine (MCV4P) 2013-04-18 00:00:[address] [facility] TDAP 2013-04-18 00:00:[address] [facility] Meningococcal Polysaccharide (groups A, C, Y and W-135) conjugate vaccine (MCV4P) 2013-04-18 00:00:[address] [facility] TDAP 2013-04-18 00:00:[address] [facility] Meningococcal Polysaccharide (groups A, C, Y and W-135) conjugate vaccine (MCV4P) 2013-04-18 00:00:[address] [facility] TDAP 2013-04-18 00:00:[address] [facility] Meningococcal Polysaccharide (groups A, C, Y and W-135) conjugate vaccine (MCV4P) 2013-04-18 00:00:[address] [facility] TDAP 2013-04-18 00:00:[address] [facility] Meningococcal Polysaccharide (groups A, C, Y and W-135) conjugate vaccine (MCV4P) 2013-04-18 00:00:[address] [facility] TDAP 2013-04-18 00:00:[address] [facility] Meningococcal Polysaccharide (groups A, C, Y and W-135) conjugate vaccine (MCV4P) 2013-04-18 00:00:[address] [facility] Meningococcal Polysaccharide (groups A, C, Y and W-135) conjugate vaccine (MCV4P) 2013-04-18 00:00:[address] [facility] TDAP 2013-04-18 00:00:[address] [facility] Meningococcal Polysaccharide (groups A, C, Y and W-135) conjugate vaccine (MCV4P) 2013-04-18 00:00:[address] [facility] TDAP 2013-04-18 00:00:[address] [facility] Tdap 2013-04-18 00:00:[address] [facility] Meningococcal Polysaccharide (groups A, C, Y and W-135) conjugate vaccine (MCV4P) 2013-04-18 00:00:[address] [facility] TDAP 2013-04-18 00:00:[address] [facility] Meningococcal Polysaccharide (groups A, C, Y and W-135) conjugate vaccine (MCV4P) 2013-04-18 00:00:[address] [facility] TDAP 2013-04-18 00:00:[address] [facility] Meningococcal Polysaccharide (groups A, C, Y and W-135) conjugate vaccine (MCV4P) 2013-04-18 00:00:[address] [facility] TDAP 2013-04-18 00:00:[address] [facility] Meningococcal Polysaccharide (groups A, C, Y and W-135) conjugate vaccine (MCV4P) 2013-04-18 00:00:[address] [facility] TDAP 2013-04-18 00:00:[address] [facility] Meningococcal Polysaccharide (groups A, C, Y and W-135) conjugate vaccine (MCV4P) 2013-04-18 00:00:[address] [facility] Meningococcal Polysaccharide (groups A, C, Y and W-135) conjugate vaccine (MCV4P) 2013-04-18 00:00:[address] [facility] TDAP 2013-04-18 00:00:[address] [facility] Meningococcal Polysaccharide (groups A, C, Y and W-135) conjugate vaccine (MCV4P) 2013-04-18 00:00:[address] [facility] TDAP 2013-04-18 00:00:[address] [facility] Tdap 2013-04-18 00:00:[address] [facility] Meningococcal Polysaccharide (groups A, C, Y and W-135) conjugate vaccine (MCV4P) 2013-04-18 00:00:[address] [facility] TDAP 2013-04-18 00:00:[address] [facility] Meningococcal Polysaccharide (groups A, C, Y and W-135) conjugate vaccine (MCV4P) 2013-04-18 00:00:[address] [facility] TDAP 2013-04-18 00:00:[address] [facility] Meningococcal Polysaccharide (groups A, C, Y and W-135) conjugate vaccine (MCV4P) 2013-04-18 00:00:[address] [facility] TDAP 2013-04-18 00:00:[address] [facility] Meningococcal Polysaccharide (groups A, C, Y and W-135) conjugate vaccine (MCV4P) 2013-04-18 00:00:[address] [facility] TDAP 2013-04-18 00:00:[address] [facility] Meningococcal Polysaccharide (groups A, C, Y and W-135) conjugate vaccine (MCV4P) 2013-04-18 00:00:[address] [facility] TDAP 2013-04-18 00:00:[address] [facility] Meningococcal Polysaccharide (groups A, C, Y and W-135) conjugate vaccine (MCV4P) 2013-04-18 00:00:[address] [facility] TDAP 2013-04-18 00:00:[address] [facility] Meningococcal Polysaccharide (groups A, C, Y and W-135) conjugate vaccine (MCV4P) 2013-04-18 00:00:[address] [facility] Meningococcal Polysaccharide (groups A, C, Y and W-135) conjugate vaccine (MCV4P) 2013-04-18 00:00:[address] [facility] TDAP 2013-04-18 00:00:[address] [facility] Meningococcal Polysaccharide (groups A, C, Y and W-135) conjugate vaccine (MCV4P) 2013-04-18 00:00:[address] [facility] TDAP 2013-04-18 00:00:[address] [facility] Tdap 2013-04-18 00:00:[address] [facility] Meningococcal Polysaccharide (groups A, C, Y and W-135) conjugate vaccine (MCV4P) 2013-04-18 00:00:[address] [facility] TDAP 2013-04-18 00:00:[address] [facility] Meningococcal Polysaccharide (groups A, C, Y and W-135) conjugate vaccine (MCV4P) 2013-04-18 00:00:[address] [facility] TDAP 2013-04-18 00:00:[address] [facility] Meningococcal Polysaccharide (groups A, C, Y and W-135) conjugate vaccine (MCV4P) 2013-04-18 00:00:[address] [facility] TDAP 2013-04-18 00:00:[address] [facility] Meningococcal Polysaccharide (groups A, C, Y and W-135) conjugate vaccine (MCV4P) 2013-04-18 00:00:[address] [facility] TDAP 2013-04-18 00:00:[address] [facility] Meningococcal Polysaccharide (groups A, C, Y and W-135) conjugate vaccine (MCV4P) 2013-04-18 00:00:[address] [facility] TDAP 2013-04-18 00:00:[address] [facility] Meningococcal Polysaccharide (groups A, C, Y and W-135) conjugate vaccine (MCV4P) 2013-04-18 00:00:[address] [facility] TDAP 2013-04-18 00:00:[address] [facility] Meningococcal Polysaccharide (groups A, C, Y and W-135) conjugate vaccine (MCV4P) 2013-04-18 00:00:[address] [facility] TDAP 2013-04-18 00:00:[address] [facility] Meningococcal Polysaccharide (groups A, C, Y and W-135) conjugate vaccine (MCV4P) 2013-04-18 00:00:[address] [facility] Meningococcal Polysaccharide (groups A, C, Y and W-135) conjugate vaccine (MCV4P) 2013-04-18 00:00:[address] [facility] TDAP 2013-04-18 00:00:[address] [facility] Tdap 2013-04-18 00:00:[address] [facility] Meningococcal Polysaccharide (groups A, C, Y and W-135) conjugate vaccine (MCV4P) 2013-04-18 00:00:[address] [facility] TDAP 2013-04-18 00:00:[address] [facility] Meningococcal Polysaccharide (groups A, C, Y and W-135) conjugate vaccine (MCV4P) 2013-04-18 00:00:[address] [facility] TDAP 2013-04-18 00:00:[address] [facility] Meningococcal Polysaccharide (groups A, C, Y and W-135) conjugate vaccine (MCV4P) 2013-04-18 00:00:[address] [facility] TDAP 2013-04-18 00:00:[address] [facility] Meningococcal Polysaccharide (groups A, C, Y and W-135) conjugate vaccine (MCV4P) 2013-04-18 00:00:[address] [facility] TDAP 2013-04-18 00:00:[address] [facility] Meningococcal Polysaccharide (groups A, C, Y and W-135) conjugate vaccine (MCV4P) 2013-04-18 00:00:[address] [facility] TDAP 2013-04-18 00:00:[address] [facility] Meningococcal Polysaccharide (groups A, C, Y and W-135) conjugate vaccine (MCV4P) 2013-04-18 00:00:[address] [facility] TDAP 2013-04-18 00:00:[address] [facility] Meningococcal Polysaccharide (groups A, C, Y and W-135) conjugate vaccine (MCV4P) 2013-04-18 00:00:[address] [facility] TDAP 2013-04-18 00:00:[address] [facility] Meningococcal Polysaccharide (groups A, C, Y and W-135) conjugate vaccine (MCV4P) 2013-04-18 00:00:[address] [facility] Meningococcal Polysaccharide (groups A, C, Y and W-135) conjugate vaccine (MCV4P) 2013-04-18 00:00:[address] [facility] TDAP 2013-04-18 00:00:[address] [facility] Tdap 2013-04-18 00:00:[address] [facility] Meningococcal Polysaccharide (groups A, C, Y and W-135) conjugate vaccine (MCV4P) 2013-04-18 00:00:[address] [facility] TDAP 2013-04-18 00:00:[address] [facility] Meningococcal Polysaccharide (groups A, C, Y and W-135) conjugate vaccine (MCV4P) 2013-04-18 00:00:[address] [facility] TDAP 2013-04-18 00:00:[address] [facility] Meningococcal Polysaccharide (groups A, C, Y and W-135) conjugate vaccine (MCV4P) 2013-04-18 00:00:[address] [facility] TDAP 2013-04-18 00:00:[address] [facility] Meningococcal Polysaccharide (groups A, C, Y and W-135) conjugate vaccine (MCV4P) 2013-04-18 00:00:[address] [facility] TDAP 2013-04-18 00:00:[address] [facility] Meningococcal Polysaccharide (groups A, C, Y and W-135) conjugate vaccine (MCV4P) 2013-04-18 00:00:[address] [facility] TDAP 2013-04-18 00:00:[address] [facility] Meningococcal Polysaccharide (groups A, C, Y and W-135) conjugate vaccine (MCV4P) 2013-04-18 00:00:[address] [facility] TDAP 2013-04-18 00:00:[address] [facility] Meningococcal Polysaccharide (groups A, C, Y and W-135) conjugate vaccine (MCV4P) 2013-04-18 00:00:[address] [facility] TDAP 2013-04-18 00:00:[address] [facility] [facility] Meningococcal Polysaccharide (groups A, C, Y and W-135) conjugate vaccine (MCV4P) 2013-04-18 00:00:[address] [facility] Meningococcal Polysaccharide (groups A, C, Y and W-135) conjugate vaccine (MCV4P) 2013-04-18 00:00:[address] [facility] TDAP 2013-04-18 00:00:[address] [facility] Meningococcal Polysaccharide (groups A, C, Y and W-135) conjugate vaccine (MCV4P) 2013-04-18 00:00:[address] [facility] TDAP 2013-04-18 00:00:[address] [facility] Tdap 2013-04-18 00:00:[address] [facility] Meningococcal Polysaccharide (groups A, C, Y and W-135) conjugate vaccine (MCV4P) 2013-04-18 00:00:[address] [facility] Tdap 2013-04-18 00:00:[address] [facility] Meningococcal Polysaccharide (groups A, C, Y and W-135) conjugate vaccine (MCV4P) 2013-04-18 00:00:[address] [facility] Tdap 2013-04-18 00:00:[address] [facility] Meningococcal Polysaccharide (groups A, C, Y and W-135) conjugate vaccine (MCV4P) 2013-04-18 00:00:[address] [facility] Tdap 2013-04-18 00:00:[address] [facility] Meningococcal Polysaccharide (groups A, C, Y and W-135) conjugate vaccine (MCV4P) 2013-04-18 00:00:[address] [facility] Meningococcal Polysaccharide (groups A, C, Y and W-135) conjugate vaccine (MCV4P) 2013-04-18 00:00:[address] [facility] Tdap 2013-04-18 00:00:[address] [facility] Tdap 2013-04-18 00:00:[address] [facility] Meningococcal Polysaccharide (groups A, C, Y and W-135) conjugate vaccine (MCV4P) 2013-04-18 00:00:[address] [facility] Tdap 2013-04-18 00:00:[address] [facility] Meningococcal Polysaccharide (groups A, C, Y and W-135) conjugate vaccine (MCV4P) 2013-04-18 00:00:[address] [facility] Tdap 2013-04-18 00:00:[address] [facility] Meningococcal Polysaccharide (groups A, C, Y and W-135) conjugate vaccine (MCV4P) 2013-04-18 00:00:[address] [facility] Tdap 2013-04-18 00:00:[address] [facility] Meningococcal Polysaccharide (groups A, C, Y and W-135) conjugate vaccine (MCV4P) 2013-04-18 00:00:[address] [facility] Tdap 2013-04-18 00:00:[address] [facility] Meningococcal Polysaccharide (groups A, C, Y and W-135) conjugate vaccine (MCV4P) 2013-04-18 00:00:[address] [facility] Tdap 2013-04-18 00:00:[address] [facility] Meningococcal Polysaccharide (groups A, C, Y and W-135) conjugate vaccine (MCV4P) 2013-04-18 00:00:[address] [facility] Tdap 2013-04-18 00:00:[address] [facility] Meningococcal Polysaccharide (groups A, C, Y and W-135) conjugate vaccine (MCV4P) 2013-04-18 00:00:[address] [facility] Tdap 2013-04-18 00:00:[address] [facility] Meningococcal Polysaccharide (groups A, C, Y and W-135) conjugate vaccine (MCV4P) 2013-04-18 00:00:[address] [facility] Tdap 2013-04-18 00:00:[address] [facility] Meningococcal Polysaccharide (groups A, C, Y and W-135) conjugate vaccine (MCV4P) 2013-04-18 00:00:[address] [facility] Tdap 2013-04-18 00:00:[address] [facility] HPV 2012-11-29 00:00:[address] [facility] HPV 2012-11-29 00:00:[address] [facility] HPV 2012-11-29 00:00:[address] [facility] HPV 2012-11-29 00:00:[address] [facility] HPV 2012-11-29 00:00:[address] [facility] HPV 2012-11-29 00:00:[address] [facility] HPV 2012-11-29 00:00:[address] [facility] HPV 2012-11-29 00:00:[address] [facility] HPV 2012-11-29 00:00:[address] [facility] HPV 2012-11-29 00:00:[address] [facility] HPV 2012-11-29 00:00:[address] [facility] HPV 2012-11-29 00:00:[address] [facility] HPV 2012-11-29 00:00:[address] [facility] HPV 2012-11-29 00:00:[address] [facility] HPV 2012-11-29 00:00:[address] [facility] HPV 2012-11-29 00:00:00 Completed [facility] HPV 2012-11-29 00:00:00 Completed [facility] HPV 2012-11-29 00:00:00 Completed [facility] HPV 2012-11-29 00:00:00 Completed [facility] HPV 2012-11-29 00:00:00 Completed [facility] HPV 2012-11-29 00:00:00 Completed [facility] HPV 2012-11-29 00:00:[address] [facility] HPV 2012-11-29 00:00:00 Completed [facility] HPV 2012-11-29 00:00:[address] [facility] HPV 2012-11-29 00:00:[address] [facility] HPV 2012-11-29 00:00:[address] [facility] HPV 2012-11-29 00:00:[address] [facility] HPV 2012-11-29 00:00:[address] [facility] HPV 2012-11-29 00:00:[address] [facility] HPV 2012-11-29 00:00:00 Completed [facility] HPV 2012-11-29 00:00:[address] [facility] HPV 2012-11-29 00:00:00 Completed [facility] HPV 2012-11-29 00:00:00 Completed [facility] HPV 2012-11-29 00:00:[address] [facility] HPV 2012-11-29 00:00:[address] [facility] HPV 2012-11-29 00:00:00 Completed [facility] HPV 2012-11-29 00:00:00 Completed [facility] HPV 2012-11-29 00:00:00 Completed [facility] HPV 2012-11-29 00:00:00 Completed [facility] HPV 2012-11-29 00:00:00 Completed [facility] HPV 2012-11-29 00:00:00 Completed [facility] HPV 2012-11-29 00:00:00 Completed [facility] HPV 2012-11-29 00:00:00 Completed [facility] HPV 2012-11-29 00:00:00 Completed [facility] HPV 2012-11-29 00:00:00 Completed [facility] HPV 2012-11-29 00:00:00 Completed [facility] HPV 2012-11-29 00:00:00 Completed [facility] HPV 2012-11-29 00:00:00 Completed [facility] HPV 2012-11-29 00:00:00 Completed [facility] HPV 2012-11-29 00:00:00 Completed [facility] HPV 2012-11-29 00:00:00 Completed [facility] HPV 2012-11-29 00:00:00 Completed [facility] HPV 2012-11-29 00:00:00 Completed [facility] HPV 2012-11-29 00:00:[address] [facility] HPV 2012-11-29 00:00:[address] [facility] HPV 2012-11-29 00:00:[address] [facility] HPV 2012-11-29 00:00:[address] [facility] HPV 2012-11-29 00:00:[address] [facility] HPV 2012-11-29 00:00:00 Completed [facility] HPV 2012-11-29 00:00:[address] [facility] HPV 2012-11-29 00:00:[address] [facility] HPV 2012-11-29 00:00:[address] [facility] HPV 2012-11-29 00:00:00 Completed [facility] HPV 2012-11-29 00:00:00 Completed [facility] HPV 2012-11-29 00:00:00 Completed [facility] HPV 2012-11-29 00:00:00 Completed [facility] HPV 2012-11-29 00:00:00 Completed [facility] HPV 2012-11-29 00:00:00 Completed [facility] HPV 2012-11-29 00:00:00 Completed [facility] HPV 2012-11-29 00:00:00 Completed [facility] HPV 2012-11-29 00:00:00 Completed [facility] HPV 2012-11-29 00:00:00 Completed [facility] HPV 2012-11-29 00:00:00 Completed [facility] HPV 2012-11-29 00:00:00 Completed [facility] HPV 2012-11-29 00:00:00 Completed [facility] HPV 2012-11-29 00:00:00 Completed [facility] HPV 2012-11-29 00:00:00 Completed [facility] HPV 2012-11-29 00:00:00 Completed [facility] HPV 2012-11-29 00:00:00 Completed [facility] HPV 2012-11-29 00:00:00 Completed [facility] HPV 2012-11-29 00:00:00 Completed [facility] HPV 2012-11-29 00:00:00 Completed [facility] HPV 2012-11-29 00:00:[address] [facility] HPV 2012-11-29 00:00:[address] [facility] HPV 2012-11-29 00:00:[address] [facility] HPV 2012-11-29 00:00:[address] [facility] HPV 2012-11-29 00:00:[address] [facility] HPV 2012-11-29 00:00:[address] [facility] HPV 2012-11-29 00:00:00 Completed [facility] HPV 2012-11-29 00:00:[address] [facility] HPV 2012-11-29 00:00:00 Completed [facility] HPV 2012-11-29 00:00:00 Completed [facility] HPV 2012-11-29 00:00:00 Completed [facility] HPV 2012-11-29 00:00:[address] [facility] HPV 2012-11-29 00:00:00 Completed [facility] HPV 2012-11-29 00:00:00 Completed [facility] HPV 2012-11-29 00:00:00 Completed [facility] HPV 2012-11-29 00:00:00 Completed [facility] HPV 2012-11-29 00:00:00 Completed [facility] HPV 2012-11-29 00:00:00 Completed [facility] HPV 2012-11-29 00:00:00 Completed [facility] HPV 2012-11-29 00:00:[address] [facility] HPV 2012-11-29 00:00:[address] [facility] HPV 2012-07-09 00:00:[address] [facility] HPV 2012-07-09 00:00:[address] [facility] HPV 2012-07-09 00:00:00 Completed [facility] HPV 2012-07-09 00:00:00 Completed [facility] HPV 2012-07-09 00:00:[address] [facility] HPV 2012-07-09 00:00:[address] [facility] HPV 2012-07-09 00:00:[address] [facility] HPV 2012-07-09 00:00:[address] [facility] HPV 2012-07-09 00:00:[address] [facility] HPV 2012-07-09 00:00:[address] [facility] HPV 2012-07-09 00:00:[address] [facility] HPV 2012-07-09 00:00:[address] [facility] HPV 2012-07-09 00:00:[address] [facility] HPV 2012-07-09 00:00:[address] [facility] HPV 2012-07-09 00:00:[address] [facility] HPV 2012-07-09 00:00:[address] [facility] HPV 2012-07-09 00:00:[address] [facility] HPV 2012-07-09 00:00:[address] [facility] HPV 2012-07-09 00:00:[address] [facility] HPV 2012-07-09 00:00:[address] [facility] HPV 2012-07-09 00:00:[address] [facility] HPV 2012-07-09 00:00:[address] [facility] HPV 2012-07-09 00:00:[address] [facility] HPV 2012-07-09 00:00:[address] [facility] HPV 2012-07-09 00:00:00 Completed [facility] HPV 2012-07-09 00:00:[address] [facility] HPV 2012-07-09 00:00:[address] [facility] HPV 2012-07-09 00:00:[address] [facility] HPV 2012-07-09 00:00:00 Completed [facility] HPV 2012-07-09 00:00:[address] [facility] HPV 2012-07-09 00:00:00 Completed [facility] HPV 2012-07-09 00:00:00 Completed [facility] HPV 2012-07-09 00:00:00 Completed [facility] HPV 2012-07-09 00:00:[address] [facility] HPV 2012-07-09 00:00:[address] [facility] HPV 2012-07-09 00:00:00 Completed [facility] HPV 2012-07-09 00:00:00 Completed [facility] HPV 2012-07-09 00:00:[address] [facility] HPV 2012-07-09 00:00:[address] [facility] HPV 2012-07-09 00:00:[address] [facility] HPV 2012-07-09 00:00:[address] [facility] HPV 2012-07-09 00:00:[address] [facility] HPV 2012-07-09 00:00:[address] [facility] HPV 2012-07-09 00:00:[address] [facility] HPV 2012-07-09 00:00:[address] [facility] HPV 2012-07-09 00:00:[address] [facility] HPV 2012-07-09 00:00:[address] [facility] HPV 2012-07-09 00:00:[address] [facility] HPV 2012-07-09 00:00:[address] [facility] HPV 2012-07-09 00:00:[address] [facility] HPV 2012-07-09 00:00:[address] [facility] HPV 2012-07-09 00:00:00 Completed [facility] HPV 2012-07-09 00:00:[address] [facility] HPV 2012-07-09 00:00:[address] [facility] HPV 2012-07-09 00:00:[address] [facility] HPV 2012-07-09 00:00:00 Completed [facility] HPV 2012-07-09 00:00:[address] [facility] HPV 2012-07-09 00:00:[address] [facility] HPV 2012-07-09 00:00:[address] [facility] HPV 2012-07-09 00:00:[address] [facility] HPV 2012-07-09 00:00:[address] [facility] HPV 2012-07-09 00:00:[address] [facility] HPV 2012-07-09 00:00:[address] [facility] HPV 2012-07-09 00:00:[address] [facility] HPV 2012-07-09 00:00:[address] [facility] HPV 2012-07-09 00:00:[address] [facility] HPV 2012-07-09 00:00:[address] [facility] HPV 2012-07-09 00:00:[address] [facility] HPV 2012-07-09 00:00:[address] [facility] HPV 2012-07-09 00:00:[address] [facility] HPV 2012-07-09 00:00:[address] [facility] HPV 2012-07-09 00:00:[address] [facility] HPV 2012-07-09 00:00:[address] [facility] HPV 2012-07-09 00:00:[address] [facility] HPV 2012-07-09 00:00:[address] [facility] HPV 2012-07-09 00:00:[address] [facility] HPV 2012-07-09 00:00:[address] [facility] HPV 2012-07-09 00:00:[address] [facility] HPV 2012-07-09 00:00:[address] [facility] HPV 2012-07-09 00:00:[address] [facility] HPV 2012-07-09 00:00:[address] [facility] HPV 2012-07-09 00:00:[address] [facility] HPV 2012-07-09 00:00:[address] [facility] HPV 2012-07-09 00:00:[address] [facility] HPV 2012-07-09 00:00:[address] [facility] HPV 2012-07-09 00:00:[address] [facility] HPV 2012-07-09 00:00:[address] [facility] HPV 2012-07-09 00:00:[address] [facility] HPV 2012-07-09 00:00:[address] [facility] HPV 2012-07-09 00:00:[address] [facility] HPV 2012-07-09 00:00:[address] [facility] HPV 2012-07-09 00:00:[address] [facility] HPV 2012-07-09 00:00:[address] [facility] HPV 2012-07-09 00:00:[address] [facility] HPV 2012-07-09 00:00:[address] [facility] HPV 2012-07-09 00:00:[address] [facility] HPV 2012-07-09 00:00:[address] [facility] HPV 2012-07-09 00:00:[address] [facility] HPV 2012-07-09 00:00:[address] [facility] HPV 2012-07-09 00:00:[address] [facility] HPV 2012-07-09 00:00:[address] [facility] HPV 2012-07-09 00:00:[address] [facility] HPV 2012-07-09 00:00:[address] [facility] HPV 2011-04-07 00:00:[address] [facility] HPV 2011-04-07 00:00:[address] [facility] HPV 2011-04-07 00:00:[address] [facility] HPV 2011-04-07 00:00:[address] [facility] HPV 2011-04-07 00:00:[address] [facility] HPV 2011-04-07 00:00:[address] [facility] HPV 2011-04-07 00:00:[address] [facility] HPV 2011-04-07 00:00:[address] [facility] HPV 2011-04-07 00:00:[address] [facility] HPV 2011-04-07 00:00:[address] [facility] HPV 2011-04-07 00:00:[address] [facility] HPV 2011-04-07 00:00:[address] [facility] HPV 2011-04-07 00:00:[address] [facility] HPV 2011-04-07 00:00:[address] [facility] HPV 2011-04-07 00:00:[address] [facility] HPV 2011-04-07 00:00:[address] [facility] HPV 2011-04-07 00:00:[address] [facility] HPV 2011-04-07 00:00:[address] [facility] HPV 2011-04-07 00:00:[address] [facility] HPV 2011-04-07 00:00:[address] [facility] HPV 2011-04-07 00:00:[address] [facility] HPV 2011-04-07 00:00:[address] [facility] HPV 2011-04-07 00:00:[address] [facility] HPV 2011-04-07 00:00:[address] [facility] HPV 2011-04-07 00:00:[address] [facility] HPV 2011-04-07 00:00:[address] [facility] HPV 2011-04-07 00:00:[address] [facility] HPV 2011-04-07 00:00:[address] [facility] HPV 2011-04-07 00:00:[address] [facility] HPV 2011-04-07 00:00:[address] [facility] HPV 2011-04-07 00:00:[address] [facility] HPV 2011-04-07 00:00:[address] [facility] HPV 2011-04-07 00:00:[address] [facility] HPV 2011-04-07 00:00:[address] [facility] HPV 2011-04-07 00:00:[address] [facility] HPV 2011-04-07 00:00:[address] [facility] HPV 2011-04-07 00:00:[address] [facility] HPV 2011-04-07 00:00:[address] [facility] HPV 2011-04-07 00:00:[address] [facility] HPV 2011-04-07 00:00:[address] [facility] HPV 2011-04-07 00:00:[address] [facility] HPV 2011-04-07 00:00:[address] [facility] HPV 2011-04-07 00:00:[address] [facility] HPV 2011-04-07 00:00:[address] [facility] HPV 2011-04-07 00:00:[address] [facility] HPV 2011-04-07 00:00:[address] [facility] HPV 2011-04-07 00:00:[address] [facility] HPV 2011-04-07 00:00:[address] [facility] HPV 2011-04-07 00:00:[address] [facility] HPV 2011-04-07 00:00:[address] [facility] HPV 2011-04-07 00:00:[address] [facility] HPV 2011-04-07 00:00:[address] [facility] HPV 2011-04-07 00:00:[address] [facility] HPV 2011-04-07 00:00:[address] [facility] HPV 2011-04-07 00:00:[address] [facility] HPV 2011-04-07 00:00:[address] [facility] HPV 2011-04-07 00:00:[address] [facility] HPV 2011-04-07 00:00:[address] [facility] [facility] 2011-04-07 00:00:[address] [facility] HPV 2011-04-07 00:00:[address] [facility] HPV 2011-04-07 00:00:[address] [facility] HPV 2011-04-07 00[facility]00:[address] [facility] HPV 2011-04-07 00:00:[address] [facility] HPV 2011-04-07 00:00:[address] [facility] HPV 2011-04-07 00:00:[address] [facility] HPV 2011-04-07 00:00:[address] [facility] HPV 2011-04-07 00:00:[address] [facility] HPV 2011-04-07 00:00:[address] [facility] HPV 2011-04-07 00:00:[address] [facility] HPV 2011-04-07 00:00:[address] [facility] HPV 2011-04-07 00:00:[address] [facility] HPV 2011-04-07 00:00:[address] [facility] HPV 2011-04-07 00:00:[address] [facility] HPV 2011-04-07 00:00:[address] [facility] HPV 2011-04-07 00:00:[address] [facility] HPV 2011-04-07 00:00:[address] [facility] HPV 2011-04-07 00:00:[address] [facility] HPV 2011-04-07 00:00:[address] [facility] HPV 2011-04-07 00:00:[address] [facility] HPV 2011-04-07 00:00:[address] [facility] HPV 2011-04-07 00:00:[address] [facility] HPV 2011-04-07 00:00:[address] [facility] HPV 2011-04-07 00:00:[address] [facility] HPV 2011-04-07 00:00:[address] [facility] HPV 2011-04-07 00:00:[address] [facility] HPV 2011-04-07 00:00:[address] [facility] HPV 2011-04-07 00:00:[address] [facility] HPV 2011-04-07 00:00:[address] [facility] HPV 2011-04-07 00:00:[address] [facility] HPV 2011-04-07 00:00:[address] [facility] HPV 2011-04-07 00:00:[address] [facility] HPV 2011-04-07 00:00:[address] [facility] HPV 2011-04-07 00:00:[address] [facility] HPV 2011-04-07 00:00:[address] [facility] HPV 2011-04-07 00:00:[address] [facility] HPV 2011-04-07 00:00:[address] [facility] HPV 2011-04-07 00:00:[address] [facility] HPV 2011-04-07 00:00:[address] [facility] HPV 2011-04-07 00:00:[address] [facility] HPV 2011-04-07 00:00:[address] [facility] HPV 2011-04-07 00:00:[address] [facility] HPV 2011-04-07 00:00:[address] [facility] HPV 2011-04-07 00:00:[address] [facility] Polio (IPV/OPV) 2006-04-20 00:00:[address] [facility] Varicella (varivax)(chicken pox) 2006-04-20 00:00:[address] [facility] DTAP 2006-04-20 00:00:[address] [facility] MMR 2006-04-20 00:00:[address] [facility] Polio (IPV/OPV) 2006-04-20 00:00:[address] [facility] Varicella (varivax)(chicken pox) 2006-04-20 00:00:[address] [facility] DTAP 2006-04-20 00:00:[address] [facility] MMR 2006-04-20 00:00:[address] [facility] Polio (IPV/OPV) 2006-04-20 00:00:[address] [facility] Polio (IPV/OPV) 2006-04-20 00:00:[address] [facility] Varicella (varivax)(chicken pox) 2006-04-20 00:00:[address] [facility] DTAP 2006-04-20 00:00:[address] [facility] MMR 2006-04-20 00:00:[address] [facility] Varicella (varivax)(chicken pox) 2006-04-20 00:00:[address] [facility] DTAP 2006-04-20 00:00:[address] [facility] MMR 2006-04-20 00:00:[address] [facility] Polio (IPV/OPV) 2006-04-20 00:00:[address] [facility] Varicella (varivax)(chicken pox) 2006-04-20 00:00:[address] [facility] DTAP 2006-04-20 00:00:[address] [facility] MMR 2006-04-20 00:00:[address] [facility] Polio (IPV/OPV) 2006-04-20 00:00:[address] [facility] Varicella (varivax)(chicken pox) 2006-04-20 00:00:[address] [facility] DTAP 2006-04-20 00:00:[address] [facility] MMR 2006-04-20 00:00:[address] [facility] Polio (IPV/OPV) 2006-04-20 00:00:[address] [facility] Varicella (varivax)(chicken pox) 2006-04-20 00:00:[address] [facility] DTAP 2006-04-20 00:00:[address] [facility] MMR 2006-04-20 00:00:[address] [facility] Polio (IPV/OPV) 2006-04-20 00:00:[address] [facility] Varicella (varivax)(chicken pox) 2006-04-20 00:00:[address] [facility] DTAP 2006-04-20 00:00:[address] [facility] MMR 2006-04-20 00:00:[address] [facility] Polio (IPV/OPV) 2006-04-20 00:00:[address] [facility] Varicella (varivax)(chicken pox) 2006-04-20 00:00:[address] [facility] DTAP 2006-04-20 00:00:[address] [facility] MMR 2006-04-20 00:00:[address] [facility] Polio (IPV/OPV) 2006-04-20 00:00:[address] [facility] Varicella (varivax)(chicken pox) 2006-04-20 00:00:[address] [facility] DTAP 2006-04-20 00:00:[address] [facility] MMR 2006-04-20 00:00:[address] [facility] Polio (IPV/OPV) 2006-04-20 00:00:[address] [facility] Varicella (varivax)(chicken pox) 2006-04-20 00:00:[address] [facility] DTAP 2006-04-20 00:00:[address] [facility] MMR 2006-04-20 00:00:[address] [facility] Polio (IPV/OPV) 2006-04-20 00:00:[address] [facility] Varicella (varivax)(chicken pox) 2006-04-20 00:00:[address] [facility] DTAP 2006-04-20 00:00:[address] [facility] MMR 2006-04-20 00:00:[address] [facility] Polio (IPV/OPV) 2006-04-20 00:00:[address] [facility] Polio (IPV/OPV) 2006-04-20 00:00:[address] [facility] Varicella (varivax)(chicken pox) 2006-04-20 00:00:[address] [facility] DTAP 2006-04-20 00:00:[address] [facility] MMR 2006-04-20 00:00:[address] [facility] Varicella (varivax)(chicken pox) 2006-04-20 00:00:[address] [facility] DTAP 2006-04-20 00:00:[address] [facility] Polio (IPV/OPV) 2006-04-20 00:00:[address] [facility] Varicella (varivax)(chicken pox) 2006-04-20 00:00:[address] [facility] DTAP 2006-04-20 00:00:[address] [facility] MMR 2006-04-20 00:00:[address] [facility] MMR 2006-04-20 00:00:[address] [facility] Polio (IPV/OPV) 2006-04-20 00:00:[address] [facility] Varicella (varivax)(chicken pox) 2006-04-20 00:00:[address] [facility] DTAP 2006-04-20 00:00:[address] [facility] MMR 2006-04-20 00:00:[address] [facility] Polio (IPV/OPV) 2006-04-20 00:00:[address] [facility] Varicella (varivax)(chicken pox) 2006-04-20 00:00:[address] [facility] DTAP 2006-04-20 00:00:[address] [facility] MMR 2006-04-20 00:00:[address] [facility] Polio (IPV/OPV) 2006-04-20 00:00:[address] [facility] Varicella (varivax)(chicken pox) 2006-04-20 00:00:[address] [facility] DTAP 2006-04-20 00:00:[address] [facility] MMR 2006-04-20 00:00:[address] [facility] Polio (IPV/OPV) 2006-04-20 00:00:[address] [facility] Varicella (varivax)(chicken pox) 2006-04-20 00:00:[address] [facility] DTAP 2006-04-20 00:00:[address] [facility] MMR 2006-04-20 00:00:[address] [facility] Polio (IPV/OPV) 2006-04-20 00:00:[address] [facility] Varicella (varivax)(chicken pox) 2006-04-20 00:00:[address] [facility] DTAP 2006-04-20 00:00:[address] [facility] MMR 2006-04-20 00:00:[address] [facility] Polio (IPV/OPV) 2006-04-20 00:00:[address] [facility] Varicella (varivax)(chicken pox) 2006-04-20 00:00:[address] [facility] DTAP 2006-04-20 00:00:[address] [facility] MMR 2006-04-20 00:00:[address] [facility] Polio (IPV/OPV) 2006-04-20 00:00:[address] [facility] Varicella (varivax)(chicken pox) 2006-04-20 00:00:[address] [facility] DTAP 2006-04-20 00:00:[address] [facility] MMR 2006-04-20 00:00:[address] [facility] Polio (IPV/OPV) 2006-04-20 00:00:[address] [facility] Varicella (varivax)(chicken pox) 2006-04-20 00:00:[address] [facility] DTAP 2006-04-20 00:00:[address] [facility] MMR 2006-04-20 00:00:[address] [facility] Polio (IPV/OPV) 2006-04-20 00:00:[address] [facility] Varicella (varivax)(chicken pox) 2006-04-20 00:00:[address] [facility] DTAP 2006-04-20 00:00:[address] [facility] MMR 2006-04-20 00:00:[address] [facility] Polio (IPV/OPV) 2006-04-20 00:00:[address] [facility] Polio (IPV/OPV) 2006-04-20 00:00:[address] [facility] Varicella (varivax)(chicken pox) 2006-04-20 00:00:[address] [facility] DTAP 2006-04-20 00:00:[address] [facility] MMR 2006-04-20 00:00:[address] [facility] Varicella (varivax)(chicken pox) 2006-04-20 00:00:[address] [facility] DTAP 2006-04-20 00:00:[address] [facility] MMR 2006-04-20 00:00:[address] [facility] Polio (IPV/OPV) 2006-04-20 00:00:[address] [facility] Varicella (varivax)(chicken pox) 2006-04-20 00:00:[address] [facility] DTAP 2006-04-20 00:00:[address] [facility] MMR 2006-04-20 00:00:[address] [facility] Polio (IPV/OPV) 2006-04-20 00:00:[address] [facility] Varicella (varivax)(chicken pox) 2006-04-20 00:00:[address] [facility] DTAP 2006-04-20 00:00:[address] [facility] MMR 2006-04-20 00:00:[address] [facility] Polio (IPV/OPV) 2006-04-20 00:00:[address] [facility] Varicella (varivax)(chicken pox) 2006-04-20 00:00:[address] [facility] DTAP 2006-04-20 00:00:[address] [facility] MMR 2006-04-20 00:00:[address] [facility] Polio (IPV/OPV) 2006-04-20 00:00:[address] [facility] Varicella (varivax)(chicken pox) 2006-04-20 00:00:[address] [facility] DTAP 2006-04-20 00:00:[address] [facility] MMR 2006-04-20 00:00:[address] [facility] Polio (IPV/OPV) 2006-04-20 00:00:[address] [facility] Varicella (varivax)(chicken pox) 2006-04-20 00:00:[address] [facility] DTAP 2006-04-20 00:00:[address] [facility] MMR 2006-04-20 00:00:[address] [facility] Polio (IPV/OPV) 2006-04-20 00:00:[address] [facility] Varicella (varivax)(chicken pox) 2006-04-20 00:00:[address] [facility] DTAP 2006-04-20 00:00:[address] [facility] MMR 2006-04-20 00:00:[address] [facility] Polio (IPV/OPV) 2006-04-20 00:00:[address] [facility] Varicella (varivax)(chicken pox) 2006-04-20 00:00:[address] [facility] DTAP 2006-04-20 00:00:[address] [facility] MMR 2006-04-20 00:00:[address] [facility] Polio (IPV/OPV) 2006-04-20 00:00:[address] [facility] Polio (IPV/OPV) 2006-04-20 00:00:[address] [facility] Varicella (varivax)(chicken pox) 2006-04-20 00:00:[address] [facility] DTAP 2006-04-20 00:00:[address] [facility] MMR 2006-04-20 00:00:[address] [facility] Varicella (varivax)(chicken pox) 2006-04-20 00:00:[address] [facility] DTAP 2006-04-20 00:00:[address] [facility] MMR 2006-04-20 00:00:[address] [facility] Polio (IPV/OPV) 2006-04-20 00:00:[address] [facility] Varicella (varivax)(chicken pox) 2006-04-20 00:00:[address] [facility] DTAP 2006-04-20 00:00:[address] [facility] MMR 2006-04-20 00:00:[address] [facility] Polio (IPV/OPV) 2006-04-20 00:00:[address] [facility] Varicella (varivax)(chicken pox) 2006-04-20 00:00:[address] [facility] DTAP 2006-04-20 00:00:[address] [facility] MMR 2006-04-20 00:00:[address] [facility] Polio (IPV/OPV) 2006-04-20 00:00:[address] [facility] Varicella (varivax)(chicken pox) 2006-04-20 00:00:[address] [facility] DTAP 2006-04-20 00:00:[address] [facility] MMR 2006-04-20 00:00:[address] [facility] Polio (IPV/OPV) 2006-04-20 00:00:[address] [facility] Varicella (varivax)(chicken pox) 2006-04-20 00:00:[address] [facility] DTAP 2006-04-20 00:00:[address] [facility] MMR 2006-04-20 00:00:[address] [facility] Polio (IPV/OPV) 2006-04-20 00:00:[address] [facility] Varicella (varivax)(chicken pox) 2006-04-20 00:00:[address] [facility] DTAP 2006-04-20 00:00:[address] [facility] MMR 2006-04-20 00:00:[address] [facility] Polio (IPV/OPV) 2006-04-20 00:00:[address] [facility] Varicella (varivax)(chicken pox) 2006-04-20 00:00:[address] [facility] DTAP 2006-04-20 00:00:[address] [facility] MMR 2006-04-20 00:00:[address] [facility] Polio (IPV/OPV) 2006-04-20 00:00:[address] [facility] Varicella (varivax)(chicken pox) 2006-04-20 00:00:[address] [facility] DTAP 2006-04-20 00:00:[address] [facility] MMR 2006-04-20 00:00:[address] [facility] Polio (IPV/OPV) 2006-04-20 00:00:[address] [facility] Varicella (varivax)(chicken pox) 2006-04-20 00:00:[address] [facility] DTAP 2006-04-20 00:00:[address] [facility] MMR 2006-04-20 00:00:[address] [facility] Polio (IPV/OPV) 2006-04-20 00:00:[address] [facility] Polio (IPV/OPV) 2006-04-20 00:00:[address] [facility] Varicella (varivax)(chicken pox) 2006-04-20 00:00:[address] [facility] DTAP 2006-04-20 00:00:[address] [facility] MMR 2006-04-20 00:00:[address] [facility] Varicella (varivax)(chicken pox) 2006-04-20 00:00:[address] [facility] DTAP 2006-04-20 00:00:[address] [facility] Polio (IPV/OPV) 2006-04-20 00:00:[address] [facility] MMR 2006-04-20 00:00:[address] [facility] Varicella (varivax)(chicken pox) 2006-04-20 00:00:[address] [facility] DTAP 2006-04-20 00:00:[address] [facility] MMR 2006-04-20 00:00:[address] [facility] Polio (IPV/OPV) 2006-04-20 00:00:[address] [facility] Varicella (varivax)(chicken pox) 2006-04-20 00:00:[address] [facility] DTAP 2006-04-20 00:00:[address] [facility] MMR 2006-04-20 00:00:[address] [facility] Polio (IPV/OPV) 2006-04-20 00:00:[address] [facility] Varicella (varivax)(chicken pox) 2006-04-20 00:00:[address] [facility] DTAP 2006-04-20 00:00:[address] [facility] MMR 2006-04-20 00:00:[address] [facility] Polio (IPV/OPV) 2006-04-20 00:00:[address] [facility] Varicella (varivax)(chicken pox) 2006-04-20 00:00:[address] [facility] DTAP 2006-04-20 00:00:[address] [facility] MMR 2006-04-20 00:00:[address] [facility] Polio (IPV/OPV) 2006-04-20 00:00:[address] [facility] Varicella (varivax)(chicken pox) 2006-04-20 00:00:[address] [facility] DTAP 2006-04-20 00:00:[address] [facility] MMR 2006-04-20 00:00:[address] [facility] Polio (IPV/OPV) 2006-04-20 00:00:[address] [facility] Polio (IPV/OPV) 2006-04-20 00:00:[address] [facility] Varicella (varivax)(chicken pox) 2006-04-20 00:00:[address] [facility] DTAP 2006-04-20 00:00:[address] [facility] MMR 2006-04-20 00:00:[address] [facility] Varicella (varivax)(chicken pox) 2006-04-20 00:00:[address] [facility] DTAP 2006-04-20 00:00:[address] [facility] Polio (IPV/OPV) 2006-04-20 00:00:[address] [facility] Varicella (varivax)(chicken pox) 2006-04-20 00:00:[address] [facility] MMR 2006-04-20 00:00:[address] [facility] DTAP 2006-04-20 00:00:[address] [facility] MMR 2006-04-20 00:00:[address] [facility] Polio (IPV/OPV) 2006-04-20 00:00:[address] [facility] Varicella (varivax)(chicken pox) 2006-04-20 00:00:[address] [facility] DTAP 2006-04-20 00:00:[address] [facility] MMR 2006-04-20 00:00:[address] [facility] Polio (IPV/OPV) 2006-04-20 00:00:[address] [facility] Varicella (varivax)(chicken pox) 2006-04-20 00:00:[address] [facility] DTAP 2006-04-20 00:00:[address] [facility] MMR 2006-04-20 00:00:[address] [facility] Polio (IPV/OPV) 2006-04-20 00:00:[address] [facility] Varicella (varivax)(chicken pox) 2006-04-20 00:00:[address] [facility] DTAP 2006-04-20 00:00:[address] [facility] MMR 2006-04-20 00:00:[address] [facility] Polio (IPV/OPV) 2006-04-20 00:00:[address] [facility] Varicella (varivax)(chicken pox) 2006-04-20 00:00:[address] [facility] DTAP 2006-04-20 00:00:[address] [facility] MMR 2006-04-20 00:00:[address] [facility] Polio (IPV/OPV) 2006-04-20 00:00:[address] [facility] Varicella (varivax)(chicken pox) 2006-04-20 00:00:[address] [facility] DTAP 2006-04-20 00:00:[address] [facility] MMR 2006-04-20 00:00:00 Completed [facility] Polio (IPV/OPV) 2006-04-20 00:00:[address] [facility] Varicella (varivax)(chicken pox) 2006-04-20 00:00:[address] [facility] DTAP 2006-04-20 00:00:[address] [facility] MMR 2006-04-20 00:00:[address] [facility] Polio (IPV/OPV) 2006-04-20 00:00:[address] [facility] Polio (IPV/OPV) 2006-04-20 00:00:[address] [facility] Varicella (varivax)(chicken pox) 2006-04-20 00:00:[address] [facility] DTAP 2006-04-20 00:00:[address] [facility] MMR 2006-04-20 00:00:[address] [facility] Varicella (varivax)(chicken pox) 2006-04-20 00:00:[address] [facility] DTAP 2006-04-20 00:00:[address] [facility] Polio (IPV/OPV) 2006-04-20 00:00:[address] [facility] MMR 2006-04-20 00:00:[address] [facility] Varicella (varivax)(chicken pox) 2006-04-20 00:00:[address] [facility] DTAP 2006-04-20 00:00:[address] [facility] MMR 2006-04-20 00:00:[address] [facility] Polio (IPV/OPV) 2006-04-20 00:00:[address] [facility] Varicella (varivax)(chicken pox) 2006-04-20 00:00:[address] [facility] DTAP 2006-04-20 00:00:[address] [facility] MMR 2006-04-20 00:00:[address] [facility] Polio (IPV/OPV) 2006-04-20 00:00:[address] [facility] Varicella (varivax)(chicken pox) 2006-04-20 00:00:[address] [facility] DTAP 2006-04-20 00:00:[address] [facility] MMR 2006-04-20 00:00:[address] [facility] Polio (IPV/OPV) 2006-04-20 00:00:[address] [facility] Varicella (varivax)(chicken pox) 2006-04-20 00:00:[address] [facility] DTAP 2006-04-20 00:00:[address] [facility] MMR 2006-04-20 00:00:[address] [facility] Polio (IPV/OPV) 2006-04-20 00:00:[address] [facility] Varicella (varivax)(chicken pox) 2006-04-20 00:00:[address] [facility] DTAP 2006-04-20 00:00:[address] [facility] MMR 2006-04-20 00:00:[address] [facility] Polio (IPV/OPV) 2006-04-20 00:00:[address] [facility] Varicella (varivax)(chicken pox) 2006-04-20 00:00:[address] [facility] DTAP 2006-04-20 00:00:[address] [facility] MMR 2006-04-20 00:00:[address] [facility] Polio (IPV/OPV) 2006-04-20 00:00:[address] [facility] Varicella (varivax)(chicken pox) 2006-04-20 00:00:[address] [facility] DTAP 2006-04-20 00:00:[address] [facility] MMR 2006-04-20 00:00:[address] [facility] Polio (IPV/OPV) 2006-04-20 00:00:[address] [facility] Polio (IPV/OPV) 2006-04-20 00:00:[address] [facility] Varicella (varivax)(chicken pox) 2006-04-20 00:00:[address] [facility] DTAP 2006-04-20 00:00:[address] [facility] MMR 2006-04-20 00:00:[address] [facility] Varicella (varivax)(chicken pox) 2006-04-20 00:00:[address] [facility] Polio (IPV/OPV) 2006-04-20 00:00:[address] [facility] Varicella (varivax)(chicken pox) 2006-04-20 00:00:[address] [facility] DTAP 2006-04-20 00:00:[address] [facility] DTAP 2006-04-20 00:00:[address] [facility] MMR 2006-04-20 00:00:[address] [facility] MMR 2006-04-20 00:00:[address] [facility] Polio (IPV/OPV) 2006-04-20 00:00:[address] [facility] Varicella (varivax)(chicken pox) 2006-04-20 00:00:[address] [facility] DTAP 2006-04-20 00:00:[address] [facility] MMR 2006-04-20 00:00:[address] [facility] Polio (IPV/OPV) 2006-04-20 00:00:[address] [facility] Varicella (varivax)(chicken pox) 2006-04-20 00:00:[address] [facility] DTAP 2006-04-20 00:00:[address] [facility] MMR 2006-04-20 00:00:[address] [facility] Polio (IPV/OPV) 2006-04-20 00:00:[address] [facility] Varicella (varivax)(chicken pox) 2006-04-20 00:00:[address] [facility] DTAP 2006-04-20 00:00:[address] [facility] MMR 2006-04-20 00:00:[address] [facility] Polio (IPV/OPV) 2006-04-20 00:00:[address] [facility] Varicella (varivax)(chicken pox) 2006-04-20 00:00:[address] [facility] DTAP 2006-04-20 00:00:[address] [facility] MMR 2006-04-20 00:00:[address] [facility] Polio (IPV/OPV) 2006-04-20 00:00:[address] [facility] Varicella (varivax)(chicken pox) 2006-04-20 00:00:[address] [facility] DTAP 2006-04-20 00:00:[address] [facility] MMR 2006-04-20 00:00:[address] [facility] Polio (IPV/OPV) 2006-04-20 00:00:[address] [facility] Varicella (varivax)(chicken pox) 2006-04-20 00:00:[address] [facility] DTAP 2006-04-20 00:00:[address] [facility] MMR 2006-04-20 00:00:[address] [facility] Polio (IPV/OPV) 2006-04-20 00:00:[address] [facility] Polio (IPV/OPV) 2006-04-20 00:00:[address] [facility] Varicella (varivax)(chicken pox) 2006-04-20 00:00:[address] [facility] DTAP 2006-04-20 00:00:[address] [facility] MMR 2006-04-20 00:00:[address] [facility] Polio (IPV/OPV) 2006-04-20 00:00:[address] [facility] Varicella (varivax)(chicken pox) 2006-04-20 00:00:[address] [facility] DTAP 2006-04-20 00:00:[address] [facility] MMR 2006-04-20 00:00:[address] [facility] Varicella (varivax)(chicken pox) 2006-04-20 00:00:[address] [facility] DTAP 2006-04-20 00:00:[address] [facility] MMR 2006-04-20 00:00:[address] [facility] Polio (IPV/OPV) 2006-04-20 00:00:[address] [facility] Varicella (varivax)(chicken pox) 2006-04-20 00:00:[address] [facility] DTAP 2006-04-20 00:00:[address] [facility] MMR 2006-04-20 00:00:[address] [facility] Polio (IPV/OPV) 2006-04-20 00:00:[address] [facility] Varicella (varivax)(chicken pox) 2006-04-20 00:00:[address] [facility] DTAP 2006-04-20 00:00:[address] [facility] MMR 2006-04-20 00:00:[address] [facility] Polio (IPV/OPV) 2006-04-20 00:00:[address] [facility] Varicella (varivax)(chicken pox) 2006-04-20 00:00:[address] [facility] DTAP 2006-04-20 00:00:[address] [facility] MMR 2006-04-20 00:00:[address] [facility] Polio (IPV/OPV) 2006-04-20 00:00:[address] [facility] Varicella (varivax)(chicken pox) 2006-04-20 00:00:[address] [facility] DTAP 2006-04-20 00:00:[address] [facility] MMR 2006-04-20 00:00:[address] [facility] Polio (IPV/OPV) 2006-04-20 00:00:[address] [facility] Varicella (varivax)(chicken pox) 2006-04-20 00:00:[address] [facility] DTAP 2006-04-20 00:00:[address] [facility] MMR 2006-04-20 00:00:[address] [facility] Polio (IPV/OPV) 2006-04-20 00:00:[address] [facility] Varicella (varivax)(chicken pox) 2006-04-20 00:00:[address] [facility] DTAP 2006-04-20 00:00:[address] [facility] MMR 2006-04-20 00:00:[address] [facility] Polio (IPV/OPV) 2006-04-20 00:00:[address] [facility] Varicella (varivax)(chicken pox) 2006-04-20 00:00:[address] [facility] DTAP 2006-04-20 00:00:[address] [facility] MMR 2006-04-20 00:00:[address] [facility] Polio (IPV/OPV) 2006-04-20 00:00:[address] [facility] Polio (IPV/OPV) 2006-04-20 00:00:[address] [facility] Varicella (varivax)(chicken pox) 2006-04-20 00:00:[address] [facility] DTAP 2006-04-20 00:00:[address] [facility] MMR 2006-04-20 00:00:[address] [facility] Varicella (varivax)(chicken pox) 2006-04-20 00:00:[address] [facility] DTAP 2006-04-20 00:00:[address] [facility] MMR 2006-04-20 00:00:[address] [facility] Polio (IPV/OPV) 2006-04-20 00:00:[address] [facility] Varicella (varivax)(chicken pox) 2006-04-20 00:00:[address] [facility] DTAP 2006-04-20 00:00:[address] [facility] MMR 2006-04-20 00:00:[address] [facility] Polio (IPV/OPV) 2006-04-20 00:00:[address] [facility] Varicella (varivax)(chicken pox) 2006-04-20 00:00:[address] [facility] DTAP 2006-04-20 00:00:[address] [facility] MMR 2006-04-20 00:00:[address] [facility] Polio (IPV/OPV) 2006-04-20 00:00:[address] [facility] Varicella (varivax)(chicken pox) 2006-04-20 00:00:[address] [facility] DTAP 2006-04-20 00:00:[address] [facility] MMR 2006-04-20 00:00:[address] [facility] Polio (IPV/OPV) 2006-04-20 00:00:[address] [facility] Polio (IPV/OPV) 2006-04-20 00:00:[address] [facility] Varicella (varivax)(chicken pox) 2006-04-20 00:00:[address] [facility] DTAP 2006-04-20 00:00:[address] [facility] MMR 2006-04-20 00:00:[address] [facility] Polio (IPV/OPV) 2006-04-20 00:00:[address] [facility] Varicella (varivax)(chicken pox) 2006-04-20 00:00:[address] [facility] DTAP 2006-04-20 00:00:[address] [facility] MMR 2006-04-20 00:00:[address] [facility] Varicella (varivax)(chicken pox) 2006-04-20 00:00:[address] [facility] DTAP 2006-04-20 00:00:[address] [facility] MMR 2006-04-20 00:00:[address] [facility] Polio (IPV/OPV) 2006-04-20 00:00:[address] [facility] Varicella (varivax)(chicken pox) 2006-04-20 00:00:[address] [facility] DTAP 2006-04-20 00:00:[address] [facility] MMR 2006-04-20 00:00:[address] [facility] Polio (IPV/OPV) 2006-04-20 00:00:[address] [facility] Varicella (varivax)(chicken pox) 2006-04-20 00:00:[address] [facility] DTAP 2006-04-20 00:00:[address] [facility] MMR 2006-04-20 00:00:[address] [facility] Polio (IPV/OPV) 2006-04-20 00:00:[address] [facility] Varicella (varivax)(chicken pox) 2006-04-20 00:00:[address] [facility] DTAP 2006-04-20 00:00:[address] [facility] MMR 2006-04-20 00:00:[address] [facility] Polio (IPV/OPV) 2006-04-20 00:00:[address] [facility] Varicella (varivax)(chicken pox) 2006-04-20 00:00:[address] [facility] DTAP 2006-04-20 00:00:[address] [facility] MMR 2006-04-20 00:00:[address] [facility] Polio (IPV/OPV) 2006-04-20 00:00:[address] [facility] Varicella (varivax)(chicken pox) 2006-04-20 00:00:[address] [facility] DTAP 2006-04-20 00:00:[address] [facility] MMR 2006-04-20 00:00:[address] [facility] Polio (IPV/OPV) 2006-04-20 00:00:[address] [facility] Varicella (varivax)(chicken pox) 2006-04-20 00:00:[address] [facility] DTAP 2006-04-20 00:00:[address] [facility] MMR 2006-04-20 00:00:[address] [facility] Polio (IPV/OPV) 2006-04-20 00:00:[address] [facility] Varicella (varivax)(chicken pox) 2006-04-20 00:00:[address] [facility] DTAP 2006-04-20 00:00:[address] [facility] MMR 2006-04-20 00:00:[address] [facility] Polio (IPV/OPV) 2006-04-20 00:00:[address] [facility] Varicella (varivax)(chicken pox) 2006-04-20 00:00:[address] [facility] DTAP 2006-04-20 00:00:[address] [facility] MMR 2006-04-20 00:00:[address] [facility] HEPATITIS A 2005-01-09 00:00:[address] [facility] HEPATITIS A 2005-01-09 00:00:[address] [facility] HEPATITIS A 2005-01-09 00:00:[address] [facility] HEPATITIS A 2005-01-09 00:00:[address] [facility] HEPATITIS A 2005-01-09 00:00:[address] [facility] HEPATITIS A 2005-01-09 00:00:[address] [facility] HEPATITIS A 2005-01-09 00:00:[address] [facility] HEPATITIS A 2005-01-09 00:00:[address] [facility] HEPATITIS A 2005-01-09 00:00:[address] [facility] HEPATITIS A 2005-01-09 00:00:[address] [facility] HEPATITIS A 2005-01-09 00:00:[address] [facility] HEPATITIS A 2005-01-09 00:00:[address] [facility] HEPATITIS A 2005-01-09 00:00:[address] [facility] HEPATITIS A 2005-01-09 00:00:[address] [facility] HEPATITIS A 2005-01-09 00:00:[address] [facility] HEPATITIS A 2005-01-09 00:00:[address] [facility] HEPATITIS A 2005-01-09 00:00:[address] [facility] HEPATITIS A 2005-01-09 00:00:[address] [facility] HEPATITIS A 2005-01-09 00:00:[address] [facility] HEPATITIS A 2005-01-09 00:00:[address] [facility] HEPATITIS A 2005-01-09 00:00:[address] [facility] HEPATITIS A 2005-01-09 00:00:[address] [facility] HEPATITIS A 2005-01-09 00:00:[address] [facility] HEPATITIS A 2005-01-09 00:00:[address] [facility] HEPATITIS A 2005-01-09 00:00:[address] [facility] HEPATITIS A 2005-01-09 00:00:[address] [facility] HEPATITIS A 2005-01-09 00:00:[address] [facility] HEPATITIS A 2005-01-09 00:00:[address] [facility] HEPATITIS A 2005-01-09 00:00:[address] [facility] HEPATITIS A 2005-01-09 00:00:[address] [facility] HEPATITIS A 2005-01-09 00:00:[address] [facility] HEPATITIS A 2005-01-09 00:00:[address] [facility] HEPATITIS A 2005-01-09 00:00:[address] [facility] HEPATITIS A 2005-01-09 00:00:[address] [facility] HEPATITIS A 2005-01-09 00:00:[address] [facility] HEPATITIS A 2005-01-09 00:00:[address] [facility] HEPATITIS A 2005-01-09 00:00:[address] [facility] HEPATITIS A 2005-01-09 00:00:[address] [facility] HEPATITIS A 2005-01-09 00:00:[address] [facility] HEPATITIS A 2005-01-09 00:00:[address] [facility] HEPATITIS A 2005-01-09 00:00:[address] [facility] HEPATITIS A 2005-01-09 00:00:[address] [facility] HEPATITIS A 2005-01-09 00:00:[address] [facility] HEPATITIS A 2005-01-09 00:00:[address] [facility] HEPATITIS A 2005-01-09 00:00:[address] [facility] HEPATITIS A 2005-01-09 00:00:[address] [facility] HEPATITIS A 2005-01-09 00:00:[address] [facility] HEPATITIS A 2005-01-09 00:00:[address] [facility] HEPATITIS A 2005-01-09 00:00:[address] [facility] HEPATITIS A 2005-01-09 00:00:[address] [facility] HEPATITIS A 2005-01-09 00:00:[address] [facility] HEPATITIS A 2005-01-09 00:00:[address] [facility] HEPATITIS A 2005-01-09 00:00:[address] [facility] HEPATITIS A 2005-01-09 00:00:[address] [facility] HEPATITIS A 2005-01-09 00:00:[address] [facility] HEPATITIS A 2005-01-09 00:00:[address] [facility] HEPATITIS A 2005-01-09 00:00:[address] [facility] HEPATITIS A 2005-01-09 00:00:[address] [facility] HEPATITIS A 2005-01-09 00:00:[address] [facility] HEPATITIS A 2005-01-09 00:00:[address] [facility] HEPATITIS A 2005-01-09 00:00:[address] [facility] HEPATITIS A 2005-01-09 00:00:[address] [facility] HEPATITIS A 2005-01-09 00:00:[address] [facility] HEPATITIS A 2005-01-09 00:00:[address] [facility] HEPATITIS A 2005-01-09 00:00:[address] [facility] HEPATITIS A 2005-01-09 00:00:[address] [facility] HEPATITIS A 2005-01-09 00:00:[address] [facility] HEPATITIS A 2005-01-09 00:00:[address] [facility] HEPATITIS A 2005-01-09 00:00:[address] [facility] HEPATITIS A 2005-01-09 00:00:[address] [facility] HEPATITIS A 2005-01-09 00:00:[address] [facility] HEPATITIS A 2005-01-09 00:00:[address] [facility] HEPATITIS A 2005-01-09 00:00:[address] [facility] HEPATITIS A 2005-01-09 00:00:[address] [facility] HEPATITIS A 2005-01-09 00:00:[address] [facility] HEPATITIS A 2005-01-09 00:00:[address] [facility] HEPATITIS A 2005-01-09 00:00:[address] [facility] HEPATITIS A 2005-01-09 00:00:[address] [facility] HEPATITIS A 2005-01-09 00:00:[address] [facility] HEPATITIS A 2005-01-09 00:00:[address] [facility] HEPATITIS A 2005-01-09 00:00:[address] [facility] HEPATITIS A 2005-01-09 00:00:[address] [facility] HEPATITIS A 2005-01-09 00:00:[address] [facility] HEPATITIS A 2005-01-09 00:00:[address] [facility] HEPATITIS A 2005-01-09 00:00:[address] [facility] HEPATITIS A 2005-01-09 00:00:[address] [facility] HEPATITIS A 2005-01-09 00:00:[address] [facility] HEPATITIS A 2005-01-09 00:00:[address] [facility] HEPATITIS A 2005-01-09 00:00:[address] [facility] HEPATITIS A 2005-01-09 00:00:[address] [facility] HEPATITIS A 2005-01-09 00:00:[address] [facility] HEPATITIS A 2005-01-09 00:00:[address] [facility] HEPATITIS A 2005-01-09 00:00:[address] [facility] HEPATITIS A 2005-01-09 00:00:[address] [facility] HEPATITIS A 2005-01-09 00:00:[address] [facility] HEPATITIS A 2005-01-09 00:00:[address] [facility] HEPATITIS A 2005-01-09 00:00:[address] [facility] HEPATITIS A 2005-01-09 00:00:[address] [facility] HEPATITIS A 2005-01-09 00:00:[address] [facility] HEPATITIS A 2005-01-09 00:00:[address] [facility] HEPATITIS A 2005-01-09 00:00:[address] [facility] HEPATITIS A 2005-01-09 00:00:[address] [facility] HEPATITIS A 2005-01-09 00:00:[address] [facility] HEPATITIS A 2004-05-28 00:00:[address] [facility] Pneumococcal 7 Conjugate, PCV7 (Prevnar7) 2004-05-28 00:00:[address] [facility] HEPATITIS A 2004-05-28 00:00:[address] [facility] Pneumococcal 7 Conjugate, PCV7 (Prevnar7) 2004-05-28 00:00:[address] [facility] HEPATITIS A 2004-05-28 00:00:[address] [facility] Pneumococcal 7 Conjugate, PCV7 (Prevnar7) 2004-05-28 00:00:[address] [facility] HEPATITIS A 2004-05-28 00:00:[address] [facility] Pneumococcal 7 Conjugate, PCV7 (Prevnar7) 2004-05-28 00:00:[address] [facility] Pneumococcal 7 Conjugate, PCV7 (Prevnar7) 2004-05-28 00:00:[address] [facility] HEPATITIS A 2004-05-28 00:00:[address] [facility] Pneumococcal 7 Conjugate, PCV7 (Prevnar7) 2004-05-28 00:00:[address] [facility] HEPATITIS A 2004-05-28 00:00:[address] [facility] Pneumococcal 7 Conjugate, PCV7 (Prevnar7) 2004-05-28 00:00:[address] [facility] HEPATITIS A 2004-05-28 00:00:[address] [facility] Pneumococcal 7 Conjugate, PCV7 (Prevnar7) 2004-05-28 00:00:[address] [facility] HEPATITIS A 2004-05-28 00:00:[address] [facility] Pneumococcal 7 Conjugate, PCV7 (Prevnar7) 2004-05-28 00:00:[address] [facility] HEPATITIS A 2004-05-28 00:00:[address] [facility] Pneumococcal 7 Conjugate, PCV7 (Prevnar7) 2004-05-28 00:00:[address] [facility] HEPATITIS A 2004-05-28 00:00:[address] [facility] HEPATITIS A 2004-05-28 00:00:[address] [facility] Pneumococcal 7 Conjugate, PCV7 (Prevnar7) 2004-05-28 00:00:[address] [facility] HEPATITIS A 2004-05-28 00:00:[address] [facility] Pneumococcal 7 Conjugate, PCV7 (Prevnar7) 2004-05-28 00:00:[address] [facility] HEPATITIS A 2004-05-28 00:00:[address] [facility] Pneumococcal 7 Conjugate, PCV7 (Prevnar7) 2004-05-28 00:00:[address] [facility] HEPATITIS A 2004-05-28 00:00:[address] [facility] Pneumococcal 7 Conjugate, PCV7 (Prevnar7) 2004-05-28 00:00:[address] [facility] Pneumococcal 7 Conjugate, PCV7 (Prevnar7) 2004-05-28 00:00:[address] [facility] HEPATITIS A 2004-05-28 00:00:[address] [facility] Pneumococcal 7 Conjugate, PCV7 (Prevnar7) 2004-05-28 00:00:[address] [facility] HEPATITIS A 2004-05-28 00:00:[address] [facility] Pneumococcal 7 Conjugate, PCV7 (Prevnar7) 2004-05-28 00:00:[address] [facility] HEPATITIS A 2004-05-28 00:00:[address] [facility] Pneumococcal 7 Conjugate, PCV7 (Prevnar7) 2004-05-28 00:00:[address] [facility] HEPATITIS A 2004-05-28 00:00:[address] [facility] Pneumococcal 7 Conjugate, PCV7 (Prevnar7) 2004-05-28 00:00:[address] [facility] HEPATITIS A 2004-05-28 00:00:[address] [facility] Pneumococcal 7 Conjugate, PCV7 (Prevnar7) 2004-05-28 00:00:[address] [facility] HEPATITIS A 2004-05-28 00:00:[address] [facility] Pneumococcal 7 Conjugate, PCV7 (Prevnar7) 2004-05-28 00:00:[address] [facility] HEPATITIS A 2004-05-28 00:00:[address] [facility] Pneumococcal 7 Conjugate, PCV7 (Prevnar7) 2004-05-28 00:00:[address] [facility] HEPATITIS A 2004-05-28 00:00:[address] [facility] HEPATITIS A 2004-05-28 00:00:[address] [facility] Pneumococcal 7 Conjugate, PCV7 (Prevnar7) 2004-05-28 00:00:[address] [facility] HEPATITIS A 2004-05-28 00:00:[address] [facility] Pneumococcal 7 Conjugate, PCV7 (Prevnar7) 2004-05-28 00:00:[address] [facility] HEPATITIS A 2004-05-28 00:00:[address] [facility] Pneumococcal 7 Conjugate, PCV7 (Prevnar7) 2004-05-28 00:00:[address] [facility] HEPATITIS A 2004-05-28 00:00:[address] [facility] Pneumococcal 7 Conjugate, PCV7 (Prevnar7) 2004-05-28 00:00:[address] [facility] Pneumococcal 7 Conjugate, PCV7 (Prevnar7) 2004-05-28 00:00:[address] [facility] HEPATITIS A 2004-05-28 00:00:[address] [facility] Pneumococcal 7 Conjugate, PCV7 (Prevnar7) 2004-05-28 00:00:[address] [facility] HEPATITIS A 2004-05-28 00:00:[address] [facility] Pneumococcal 7 Conjugate, PCV7 (Prevnar7) 2004-05-28 00:00:[address] [facility] HEPATITIS A 2004-05-28 00:00:[address] [facility] Pneumococcal 7 Conjugate, PCV7 (Prevnar7) 2004-05-28 00:00:[address] [facility] HEPATITIS A 2004-05-28 00:00:[address] [facility] Pneumococcal 7 Conjugate, PCV7 (Prevnar7) 2004-05-28 00:00:[address] [facility] HEPATITIS A 2004-05-28 00:00:[address] [facility] HEPATITIS A 2004-05-28 00:00:[address] [facility] Pneumococcal 7 Conjugate, PCV7 (Prevnar7) 2004-05-28 00:00:[address] [facility] HEPATITIS A 2004-05-28 00:00:[address] [facility] Pneumococcal 7 Conjugate, PCV7 (Prevnar7) 2004-05-28 00:00:[address] [facility] HEPATITIS A 2004-05-28 00:00:[address] [facility] Pneumococcal 7 Conjugate, PCV7 (Prevnar7) 2004-05-28 00:00:[address] [facility] HEPATITIS A 2004-05-28 00:00:[address] [facility] Pneumococcal 7 Conjugate, PCV7 (Prevnar7) 2004-05-28 00:00:[address] [facility] Pneumococcal 7 Conjugate, PCV7 (Prevnar7) 2004-05-28 00:00:[address] [facility] HEPATITIS A 2004-05-28 00:00:[address] [facility] Pneumococcal 7 Conjugate, PCV7 (Prevnar7) 2004-05-28 00:00:[address] [facility] HEPATITIS A 2004-05-28 00:00:[address] [facility] Pneumococcal 7 Conjugate, PCV7 (Prevnar7) 2004-05-28 00:00:[address] [facility] HEPATITIS A 2004-05-28 00:00:[address] [facility] Pneumococcal 7 Conjugate, PCV7 (Prevnar7) 2004-05-28 00:00:[address] [facility] HEPATITIS A 2004-05-28 00:00:[address] [facility] Pneumococcal 7 Conjugate, PCV7 (Prevnar7) 2004-05-28 00:00:[address] [facility] HEPATITIS A 2004-05-28 00:00:[address] [facility] Pneumococcal 7 Conjugate, PCV7 (Prevnar7) 2004-05-28 00:00:[address] [facility] HEPATITIS A 2004-05-28 00:00:[address] [facility] HEPATITIS A 2004-05-28 00:00:[address] [facility] Pneumococcal 7 Conjugate, PCV7 (Prevnar7) 2004-05-28 00:00:[address] [facility] HEPATITIS A 2004-05-28 00:00:[address] [facility] Pneumococcal 7 Conjugate, PCV7 (Prevnar7) 2004-05-28 00:00:[address] [facility] HEPATITIS A 2004-05-28 00:00:[address] [facility] Pneumococcal 7 Conjugate, PCV7 (Prevnar7) 2004-05-28 00:00:[address] [facility] HEPATITIS A 2004-05-28 00:00:[address] [facility] Pneumococcal 7 Conjugate, PCV7 (Prevnar7) 2004-05-28 00:00:[address] [facility] Pneumococcal 7 Conjugate, PCV7 (Prevnar7) 2004-05-28 00:00:[address] [facility] HEPATITIS A 2004-05-28 00:00:[address] [facility] Pneumococcal 7 Conjugate, PCV7 (Prevnar7) 2004-05-28 00:00:[address] [facility] HEPATITIS A 2004-05-28 00:00:[address] [facility] Pneumococcal 7 Conjugate, PCV7 (Prevnar7) 2004-05-28 00:00:[address] [facility] HEPATITIS A 2004-05-28 00:00:[address] [facility] HEPATITIS A 2004-05-28 00:00:[address] [facility] Pneumococcal 7 Conjugate, PCV7 (Prevnar7) 2004-05-28 00:00:[address] [facility] HEPATITIS A 2004-05-28 00:00:[address] [facility] Pneumococcal 7 Conjugate, PCV7 (Prevnar7) 2004-05-28 00:00:[address] [facility] HEPATITIS A 2004-05-28 00:00:[address] [facility] Pneumococcal 7 Conjugate, PCV7 (Prevnar7) 2004-05-28 00:00:[address] [facility] HEPATITIS A 2004-05-28 00:00:[address] [facility] Pneumococcal 7 Conjugate, PCV7 (Prevnar7) 2004-05-28 00:00:[address] [facility] Pneumococcal 7 Conjugate, PCV7 (Prevnar7) 2004-05-28 00:00:[address] [facility] HEPATITIS A 2004-05-28 00:00:[address] [facility] Pneumococcal 7 Conjugate, PCV7 (Prevnar7) 2004-05-28 00:00:[address] [facility] HEPATITIS A 2004-05-28 00:00:[address] [facility] Pneumococcal 7 Conjugate, PCV7 (Prevnar7) 2004-05-28 00:00:[address] [facility] HEPATITIS A 2004-05-28 00:00:[address] [facility] Pneumococcal 7 Conjugate, PCV7 (Prevnar7) 2004-05-28 00:00:[address] [facility] HEPATITIS A 2004-05-28 00:00:[address] [facility] Pneumococcal 7 Conjugate, PCV7 (Prevnar7) 2004-05-28 00:00:[address] [facility] HEPATITIS A 2004-05-28 00:00:[address] [facility] HEPATITIS A 2004-05-28 00:00:[address] [facility] Pneumococcal 7 Conjugate, PCV7 (Prevnar7) 2004-05-28 00:00:[address] [facility] HEPATITIS A 2004-05-28 00:00:[address] [facility] Pneumococcal 7 Conjugate, PCV7 (Prevnar7) 2004-05-28 00:00:[address] [facility] HEPATITIS A 2004-05-28 00:00:[address] [facility] Pneumococcal 7 Conjugate, PCV7 (Prevnar7) 2004-05-28 00:00:[address] [facility] HEPATITIS A 2004-05-28 00:00:[address] [facility] Pneumococcal 7 Conjugate, PCV7 (Prevnar7) 2004-05-28 00:00:[address] [facility] Pneumococcal 7 Conjugate, PCV7 (Prevnar7) 2004-05-28 00:00:[address] [facility] HEPATITIS A 2004-05-28 00:00:[address] [facility] Pneumococcal 7 Conjugate, PCV7 (Prevnar7) 2004-05-28 00:00:[address] [facility] HEPATITIS A 2004-05-28 00:00:[address] [facility] Pneumococcal 7 Conjugate, PCV7 (Prevnar7) 2004-05-28 00:00:[address] [facility] HEPATITIS A 2004-05-28 00:00:[address] [facility] Pneumococcal 7 Conjugate, PCV7 (Prevnar7) 2004-05-28 00:00:[address] [facility] HEPATITIS A 2004-05-28 00:00:[address] [facility] Pneumococcal 7 Conjugate, PCV7 (Prevnar7) 2004-05-28 00:00:[address] [facility] HEPATITIS A 2004-05-28 00:00:[address] [facility] HEPATITIS A 2004-05-28 00:00:[address] [facility] Pneumococcal 7 Conjugate, PCV7 (Prevnar7) 2004-05-28 00:00:[address] [facility] HEPATITIS A 2004-05-28 00:00:[address] [facility] Pneumococcal 7 Conjugate, PCV7 (Prevnar7) 2004-05-28 00:00:[address] [facility] HEPATITIS A 2004-05-28 00:00:[address] [facility] Pneumococcal 7 Conjugate, PCV7 (Prevnar7) 2004-05-28 00:00:[address] [facility] HEPATITIS A 2004-05-28 00:00:[address] [facility] Pneumococcal 7 Conjugate, PCV7 (Prevnar7) 2004-05-28 00:00:[address] [facility] HEPATITIS A 2004-05-28 00:00:[address] [facility] Pneumococcal 7 Conjugate, PCV7 (Prevnar7) 2004-05-28 00:00:[address] [facility] Pneumococcal 7 Conjugate, PCV7 (Prevnar7) 2004-05-28 00:00:[address] [facility] HEPATITIS A 2004-05-28 00:00:[address] [facility] Pneumococcal 7 Conjugate, PCV7 (Prevnar7) 2004-05-28 00:00:[address] [facility] HEPATITIS A 2004-05-28 00:00:[address] [facility] Pneumococcal 7 Conjugate, PCV7 (Prevnar7) 2004-05-28 00:00:[address] [facility] HEPATITIS A 2004-05-28 00:00:[address] [facility] Pneumococcal 7 Conjugate, PCV7 (Prevnar7) 2004-05-28 00:00:[address] [facility] HEPATITIS A 2004-05-28 00:00:[address] [facility] HEPATITIS A 2004-05-28 00:00:[address] [facility] Pneumococcal 7 Conjugate, PCV7 (Prevnar7) 2004-05-28 00:00:[address] [facility] HEPATITIS A 2004-05-28 00:00:[address] [facility] Pneumococcal 7 Conjugate, PCV7 (Prevnar7) 2004-05-28 00:00:[address] [facility] HEPATITIS A 2004-05-28 00:00:[address] [facility] Pneumococcal 7 Conjugate, PCV7 (Prevnar7) 2004-05-28 00:00:[address] [facility] HEPATITIS A 2004-05-28 00:00:[address] [facility] Pneumococcal 7 Conjugate, PCV7 (Prevnar7) 2004-05-28 00:00:[address] [facility] HEPATITIS A 2004-05-28 00:00:[address] [facility] Pneumococcal 7 Conjugate, PCV7 (Prevnar7) 2004-05-28 00:00:[address] [facility] Pneumococcal 7 Conjugate, PCV7 (Prevnar7) 2004-05-28 00:00:[address] [facility] HEPATITIS A 2004-05-28 00:00:[address] [facility] Pneumococcal 7 Conjugate, PCV7 (Prevnar7) 2004-05-28 00:00:[address] [facility] HEPATITIS A 2004-05-28 00:00:[address] [facility] Pneumococcal 7 Conjugate, PCV7 (Prevnar7) 2004-05-28 00:00:[address] [facility] HEPATITIS A 2004-05-28 00:00:[address] [facility] Pneumococcal 7 Conjugate, PCV7 (Prevnar7) 2004-05-28 00:00:[address] [facility] HEPATITIS A 2004-05-28 00:00:[address] [facility] Pneumococcal 7 Conjugate, PCV7 (Prevnar7) 2004-05-28 00:00:[address] [facility] HEPATITIS A 2004-05-28 00:00:[address] [facility] HEPATITIS A 2004-05-28 00:00:[address] [facility] Pneumococcal 7 Conjugate, PCV7 (Prevnar7) 2004-05-28 00:00:[address] [facility] HEPATITIS A 2004-05-28 00:00:[address] [facility] Pneumococcal 7 Conjugate, PCV7 (Prevnar7) 2004-05-28 00:00:[address] [facility] HEPATITIS A 2004-05-28 00:00:[address] [facility] Pneumococcal 7 Conjugate, PCV7 (Prevnar7) 2004-05-28 00:00:[address] [facility] Pneumococcal 7 Conjugate, PCV7 (Prevnar7) 2004-05-28 00:00:[address] [facility] HEPATITIS A 2004-05-28 00:00:[address] [facility] Pneumococcal 7 Conjugate, PCV7 (Prevnar7) 2004-05-28 00:00:[address] [facility] HEPATITIS A 2004-05-28 00:00:[address] [facility] HEPATITIS A 2004-05-28 00:00:[address] [facility] Pneumococcal 7 Conjugate, PCV7 (Prevnar7) 2004-05-28 00:00:[address] [facility] HEPATITIS A 2004-05-28 00:00:[address] [facility] Pneumococcal 7 Conjugate, PCV7 (Prevnar7) 2004-05-28 00:00:[address] [facility] HEPATITIS A 2004-05-28 00:00:[address] [facility] Pneumococcal 7 Conjugate, PCV7 (Prevnar7) 2004-05-28 00:00:[address] [facility] HEPATITIS A 2004-05-28 00:00:[address] [facility] Pneumococcal 7 Conjugate, PCV7 (Prevnar7) 2004-05-28 00:00:[address] [facility] HEPATITIS A 2004-05-28 00:00:[address] [facility] Pneumococcal 7 Conjugate, PCV7 (Prevnar7) 2004-05-28 00:00:[address] [facility] Pneumococcal 7 Conjugate, PCV7 (Prevnar7) 2004-05-28 00:00:[address] [facility] HEPATITIS A 2004-05-28 00:00:[address] [facility] Pneumococcal 7 Conjugate, PCV7 (Prevnar7) 2004-05-28 00:00:[address] [facility] HEPATITIS A 2004-05-28 00:00:[address] [facility] Pneumococcal 7 Conjugate, PCV7 (Prevnar7) 2004-05-28 00:00:[address] [facility] HEPATITIS A 2004-05-28 00:00:[address] [facility] Pneumococcal 7 Conjugate, PCV7 (Prevnar7) 2004-05-28 00:00:[address] [facility] HEPATITIS A 2004-05-28 00:00:[address] [facility] Pneumococcal 7 Conjugate, PCV7 (Prevnar7) 2004-05-28 00:00:[address] [facility] HEPATITIS A 2004-05-28 00:00:[address] [facility] Pneumococcal 7 Conjugate, PCV7 (Prevnar7) 2004-05-28 00:00:[address] [facility] HEPATITIS A 2004-05-28 00:00:[address] [facility] Pneumococcal 7 Conjugate, PCV7 (Prevnar7) 2004-05-28 00:00:[address] [facility] HEPATITIS A 2004-05-28 00:00:[address] [facility] HEPATITIS A 2004-05-28 00:00:[address] [facility] Pneumococcal 7 Conjugate, PCV7 (Prevnar7) 2004-05-28 00:00:[address] [facility] HIB 4 Dose Schedule 2003-08-04 00:00:[address] [facility] DTAP 2003-08-04 00:00:[address] [facility] HIB 4 Dose Schedule 2003-08-04 00:00:[address] [facility] DTAP 2003-08-04 00:00:[address] [facility] HIB 4 Dose Schedule 2003-08-04 00:00:[address] [facility] DTAP 2003-08-04 00:00:[address] [facility] HIB 4 Dose Schedule 2003-08-04 00:00:[address] [facility] DTAP 2003-08-04 00:00:[address] [facility] HIB 4 Dose Schedule 2003-08-04 00:00:[address] [facility] DTAP 2003-08-04 00:00:[address] [facility] HIB 4 Dose Schedule 2003-08-04 00:00:[address] [facility] DTAP 2003-08-04 00:00:[address] [facility] HIB 4 Dose Schedule 2003-08-04 00:00:[address] [facility] DTAP 2003-08-04 00:00:[address] [facility] HIB 4 Dose Schedule 2003-08-04 00:00:[address] [facility] DTAP 2003-08-04 00:00:[address] [facility] DTAP 2003-08-04 00:00:[address] [facility] HIB 4 Dose Schedule 2003-08-04 00:00:[address] [facility] HIB 4 Dose Schedule 2003-08-04 00:00:[address] [facility] DTAP 2003-08-04 00:00:[address] [facility] HIB 4 Dose Schedule 2003-08-04 00:00:[address] [facility] DTAP 2003-08-04 00:00:[address] [facility] HIB 4 Dose Schedule 2003-08-04 00:00:[address] [facility] DTAP 2003-08-04 00:00:[address] [facility] HIB 4 Dose Schedule 2003-08-04 00:00:[address] [facility] DTAP 2003-08-04 00:00:[address] [facility] HIB 4 Dose Schedule 2003-08-04 00:00:[address] [facility] DTAP 2003-08-04 00:00:[address] [facility] HIB 4 Dose Schedule 2003-08-04 00:00:[address] [facility] DTAP 2003-08-04 00:00:[address] [facility] HIB 4 Dose Schedule 2003-08-04 00:00:[address] [facility] DTAP 2003-08-04 00:00:[address] [facility] HIB 4 Dose Schedule 2003-08-04 00:00:[address] [facility] DTAP 2003-08-04 00:00:[address] [facility] HIB 4 Dose Schedule 2003-08-04 00:00:[address] [facility] DTAP 2003-08-04 00:00:[address] [facility] HIB 4 Dose Schedule 2003-08-04 00:00:[address] [facility] DTAP 2003-08-04 00:00:[address] [facility] HIB 4 Dose Schedule 2003-08-04 00:00:[address] [facility] DTAP 2003-08-04 00:00:[address] [facility] DTAP 2003-08-04 00:00:[address] [facility] HIB 4 Dose Schedule 2003-08-04 00:00:[address] [facility] HIB 4 Dose Schedule 2003-08-04 00:00:[address] [facility] DTAP 2003-08-04 00:00:[address] [facility] HIB 4 Dose Schedule 2003-08-04 00:00:[address] [facility] DTAP 2003-08-04 00:00:[address] [facility] HIB 4 Dose Schedule 2003-08-04 00:00:[address] [facility] DTAP 2003-08-04 00:00:[address] [facility] HIB 4 Dose Schedule 2003-08-04 00:00:[address] [facility] DTAP 2003-08-04 00:00:[address] [facility] HIB 4 Dose Schedule 2003-08-04 00:00:[address] [facility] DTAP 2003-08-04 00:00:[address] [facility] HIB 4 Dose Schedule 2003-08-04 00:00:[address] [facility] DTAP 2003-08-04 00:00:[address] [facility] HIB 4 Dose Schedule 2003-08-04 00:00:[address] [facility] DTAP 2003-08-04 00:00:[address] [facility] HIB 4 Dose Schedule 2003-08-04 00:00:[address] [facility] DTAP 2003-08-04 00:00:[address] [facility] DTAP 2003-08-04 00:00:[address] [facility] HIB 4 Dose Schedule 2003-08-04 00:00:[address] [facility] HIB 4 Dose Schedule 2003-08-04 00:00:[address] [facility] DTAP 2003-08-04 00:00:[address] [facility] HIB 4 Dose Schedule 2003-08-04 00:00:[address] [facility] DTAP 2003-08-04 00:00:[address] [facility] HIB 4 Dose Schedule 2003-08-04 00:00:[address] [facility] DTAP 2003-08-04 00:00:[address] [facility] HIB 4 Dose Schedule 2003-08-04 00:00:[address] [facility] DTAP 2003-08-04 00:00:[address] [facility] HIB 4 Dose Schedule 2003-08-04 00:00:[address] [facility] DTAP 2003-08-04 00:00:[address] [facility] HIB 4 Dose Schedule 2003-08-04 00:00:[address] [facility] DTAP 2003-08-04 00:00:[address] [facility] HIB 4 Dose Schedule 2003-08-04 00:00:[address] [facility] DTAP 2003-08-04 00:00:[address] [facility] HIB 4 Dose Schedule 2003-08-04 00:00:[address] [facility] DTAP 2003-08-04 00:00:[address] [facility] HIB 4 Dose Schedule 2003-08-04 00:00:[address] [facility] DTAP 2003-08-04 00:00:[address] [facility] DTAP 2003-08-04 00:00:[address] [facility] HIB 4 Dose Schedule 2003-08-04 00:00:[address] [facility] HIB 4 Dose Schedule 2003-08-04 00:00:[address] [facility] DTAP 2003-08-04 00:00:[address] [facility] HIB 4 Dose Schedule 2003-08-04 00:00:[address] [facility] DTAP 2003-08-04 00:00:[address] [facility] HIB 4 Dose Schedule 2003-08-04 00:00:[address] [facility] DTAP 2003-08-04 00:00:[address] [facility] HIB 4 Dose Schedule 2003-08-04 00:00:[address] [facility] DTAP 2003-08-04 00:00:[address] [facility] HIB 4 Dose Schedule 2003-08-04 00:00:[address] [facility] DTAP 2003-08-04 00:00:[address] [facility] HIB 4 Dose Schedule 2003-08-04 00:00:[address] [facility] DTAP 2003-08-04 00:00:[address] [facility] HIB 4 Dose Schedule 2003-08-04 00:00:[address] [facility] DTAP 2003-08-04 00:00:[address] [facility] DTAP 2003-08-04 00:00:[address] [facility] HIB 4 Dose Schedule 2003-08-04 00:00:[address] [facility] HIB 4 Dose Schedule 2003-08-04 00:00:[address] [facility] DTAP 2003-08-04 00:00:[address] [facility] HIB 4 Dose Schedule 2003-08-04 00:00:[address] [facility] DTAP 2003-08-04 00:00:[address] [facility] HIB 4 Dose Schedule 2003-08-04 00:00:[address] [facility] DTAP 2003-08-04 00:00:[address] [facility] HIB 4 Dose Schedule 2003-08-04 00:00:[address] [facility] DTAP 2003-08-04 00:00:[address] [facility] HIB 4 Dose Schedule 2003-08-04 00:00:[address] [facility] DTAP 2003-08-04 00:00:[address] [facility] HIB 4 Dose Schedule 2003-08-04 00:00:[address] [facility] DTAP 2003-08-04 00:00:[address] [facility] HIB 4 Dose Schedule 2003-08-04 00:00:[address] [facility] DTAP 2003-08-04 00:00:[address] [facility] DTAP 2003-08-04 00:00:[address] [facility] HIB 4 Dose Schedule 2003-08-04 00:00:[address] [facility] HIB 4 Dose Schedule 2003-08-04 00:00:[address] [facility] DTAP 2003-08-04 00:00:[address] [facility] HIB 4 Dose Schedule 2003-08-04 00:00:[address] [facility] DTAP 2003-08-04 00:00:[address] [facility] HIB 4 Dose Schedule 2003-08-04 00:00:[address] [facility] DTAP 2003-08-04 00:00:[address] [facility] HIB 4 Dose Schedule 2003-08-04 00:00:[address] [facility] DTAP 2003-08-04 00:00:[address] [facility] HIB 4 Dose Schedule 2003-08-04 00:00:[address] [facility] DTAP 2003-08-04 00:00:[address] [facility] HIB 4 Dose Schedule 2003-08-04 00:00:[address] [facility] DTAP 2003-08-04 00:00:[address] [facility] HIB 4 Dose Schedule 2003-08-04 00:00:[address] [facility] DTAP 2003-08-04 00:00:[address] [facility] HIB 4 Dose Schedule 2003-08-04 00:00:[address] [facility] DTAP 2003-08-04 00:00:[address] [facility] HIB 4 Dose Schedule 2003-08-04 00:00:[address] [facility] DTAP 2003-08-04 00:00:[address] [facility] DTAP 2003-08-04 00:00:[address] [facility] HIB 4 Dose Schedule 2003-08-04 00:00:[address] [facility] HIB 4 Dose Schedule 2003-08-04 00:00:[address] [facility] DTAP 2003-08-04 00:00:[address] [facility] HIB 4 Dose Schedule 2003-08-04 00:00:[address] [facility] DTAP 2003-08-04 00:00:[address] [facility] HIB 4 Dose Schedule 2003-08-04 00:00:[address] [facility] DTAP 2003-08-04 00:00:[address] [facility] HIB 4 Dose Schedule 2003-08-04 00:00:[address] [facility] DTAP 2003-08-04 00:00:[address] [facility] HIB 4 Dose Schedule 2003-08-04 00:00:[address] [facility] DTAP 2003-08-04 00:00:[address] [facility] HIB 4 Dose Schedule 2003-08-04 00:00:[address] [facility] DTAP 2003-08-04 00:00:[address] [facility] HIB 4 Dose Schedule 2003-08-04 00:00:[address] [facility] DTAP 2003-08-04 00:00:[address] [facility] HIB 4 Dose Schedule 2003-08-04 00:00:[address] [facility] DTAP 2003-08-04 00:00:[address] [facility] DTAP 2003-08-04 00:00:[address] [facility] HIB 4 Dose Schedule 2003-08-04 00:00:[address] [facility] HIB 4 Dose Schedule 2003-08-04 00:00:[address] [facility] DTAP 2003-08-04 00:00:[address] [facility] HIB 4 Dose Schedule 2003-08-04 00:00:[address] [facility] DTAP 2003-08-04 00:00:[address] [facility] HIB 4 Dose Schedule 2003-08-04 00:00:[address] [facility] DTAP 2003-08-04 00:00:[address] [facility] HIB 4 Dose Schedule 2003-08-04 00:00:[address] [facility] DTAP 2003-08-04 00:00:[address] [facility] HIB 4 Dose Schedule 2003-08-04 00:00:[address] [facility] DTAP 2003-08-04 00:00:[address] [facility] HIB 4 Dose Schedule 2003-08-04 00:00:[address] [facility] DTAP 2003-08-04 00:00:[address] [facility] HIB 4 Dose Schedule 2003-08-04 00:00:[address] [facility] DTAP 2003-08-04 00:00:[address] [facility] HIB 4 Dose Schedule 2003-08-04 00:00:[address] [facility] DTAP 2003-08-04 00:00:[address] [facility] DTAP 2003-08-04 00:00:[address] [facility] HIB 4 Dose Schedule 2003-08-04 00:00:[address] [facility] HIB 4 Dose Schedule 2003-08-04 00:00:[address] [facility] DTAP 2003-08-04 00:00:[address] [facility] HIB 4 Dose Schedule 2003-08-04 00:00:[address] [facility] DTAP 2003-08-04 00:00:[address] [facility] HIB 4 Dose Schedule 2003-08-04 00:00:[address] [facility] DTAP 2003-08-04 00:00:[address] [facility] HIB 4 Dose Schedule 2003-08-04 00:00:[address] [facility] DTAP 2003-08-04 00:00:[address] [facility] DTAP 2003-08-04 00:00:[address] [facility] HIB 4 Dose Schedule 2003-08-04 00:00:[address] [facility] HIB 4 Dose Schedule 2003-08-04 00:00:[address] [facility] DTAP 2003-08-04 00:00:[address] [facility] HIB 4 Dose Schedule 2003-08-04 00:00:[address] [facility] DTAP 2003-08-04 00:00:[address] [facility] HIB 4 Dose Schedule 2003-08-04 00:00:[address] [facility] DTAP 2003-08-04 00:00:[address] [facility] HIB 4 Dose Schedule 2003-08-04 00:00:[address] [facility] DTAP 2003-08-04 00:00:[address] [facility] HIB 4 Dose Schedule 2003-08-04 00:00:[address] [facility] DTAP 2003-08-04 00:00:[address] [facility] HIB 4 Dose Schedule 2003-08-04 00:00:[address] [facility] DTAP 2003-08-04 00:00:[address] [facility] HIB 4 Dose Schedule 2003-08-04 00:00:[address] [facility] DTAP 2003-08-04 00:00:[address] [facility] HIB 4 Dose Schedule 2003-08-04 00:00:[address] [facility] DTAP 2003-08-04 00:00:[address] [facility] HIB 4 Dose Schedule 2003-08-04 00:00:[address] [facility] DTAP 2003-08-04 00:00:[address] [facility] HIB 4 Dose Schedule 2003-08-04 00:00:[address] [facility] DTAP 2003-08-04 00:00:[address] [facility] HIB 4 Dose Schedule 2003-08-04 00:00:[address] [facility] DTAP 2003-08-04 00:00:[address] [facility] HIB 4 Dose Schedule 2003-08-04 00:00:[address] [facility] DTAP 2003-08-04 00:00:[address] [facility] DTAP 2003-08-04 00:00:[address] [facility] HIB 4 Dose Schedule 2003-08-04 00:00:[address] [facility] HIB 4 Dose Schedule 2003-08-04 00:00:[address] [facility] DTAP 2003-08-04 00:00:[address] [facility] MMR 2003-05-05 00:00:[address] [facility] Polio (IPV/OPV) 2003-05-05 00:00:[address] [facility] Pneumococcal 7 Conjugate, PCV7 (Prevnar7) 2003-05-05 00:00:[address] [facility] MMR 2003-05-05 00:00:[address] [facility] MMR 2003-05-05 00:00:[address] [facility] Polio (IPV/OPV) 2003-05-05 00:00:[address] [facility] Pneumococcal 7 Conjugate, PCV7 (Prevnar7) 2003-05-05 00:00:[address] [facility] Polio (IPV/OPV) 2003-05-05 00:00:[address] [facility] MMR 2003-05-05 00:00:[address] [facility] Polio (IPV/OPV) 2003-05-05 00:00:[address] [facility] Pneumococcal 7 Conjugate, PCV7 (Prevnar7) 2003-05-05 00:00:[address] [facility] MMR 2003-05-05 00:00:[address] [facility] Polio (IPV/OPV) 2003-05-05 00:00:[address] [facility] Pneumococcal 7 Conjugate, PCV7 (Prevnar7) 2003-05-05 00:00:[address] [facility] Pneumococcal 7 Conjugate, PCV7 (Prevnar7) 2003-05-05 00:00:[address] [facility] MMR 2003-05-05 00:00:[address] [facility] Polio (IPV/OPV) 2003-05-05 00:00:[address] [facility] Pneumococcal 7 Conjugate, PCV7 (Prevnar7) 2003-05-05 00:00:00 Completed [facility] 2003-05-05 00:00:[address] [facility] Polio (IPV/OPV) 2003-05-05 00:00:[address] [facility] Pneumococcal 7 Conjugate, PCV7 (Prevnar7) 2003-05-05 00:00:00 Completed [facility] 2003-05-05 00:00:[address] [facility] Polio (IPV/OPV) 2003-05-05 00:00:[address] [facility] Pneumococcal 7 Conjugate, PCV7 (Prevnar7) 2003-05-05 00:00:00 Completed [facility] 2003-05-05 00:00:[address] [facility] Polio (IPV/OPV) 2003-05-05 00:00:[address] [facility] Pneumococcal 7 Conjugate, PCV7 (Prevnar7) 2003-05-05 00:00:00 Completed [facility] 2003-05-05 00:00:[address] [facility] Polio (IPV/OPV) 2003-05-05 00:00:[address] [facility] Pneumococcal 7 Conjugate, PCV7 (Prevnar7) 2003-05-05 00:00:00 Completed [facility] 2003-05-05 00:00:[address] [facility] Polio (IPV/OPV) 2003-05-05 00:00:[address] [facility] Pneumococcal 7 Conjugate, PCV7 (Prevnar7) 2003-05-05 00:00:00 Completed [facility] 2003-05-05 00:00:00 Completed [facility] 2003-05-05 00:00:[address] [facility] Polio (IPV/OPV) 2003-05-05 00:00:[address] [facility] Pneumococcal 7 Conjugate, PCV7 (Prevnar7) 2003-05-05 00:00:00 Completed [facility] 2003-05-05 00:00:[address] [facility] Polio (IPV/OPV) 2003-05-05 00:00:[address] [facility] Polio (IPV/OPV) 2003-05-05 00:00:[address] [facility] Pneumococcal 7 Conjugate, PCV7 (Prevnar7) 2003-05-05 00:00:[address] [facility] MMR 2003-05-05 00:00:[address] [facility] Polio (IPV/OPV) 2003-05-05 00:00:[address] [facility] Pneumococcal 7 Conjugate, PCV7 (Prevnar7) 2003-05-05 00:00:[address] [facility] Pneumococcal 7 Conjugate, PCV7 (Prevnar7) 2003-05-05 00:00:[address] [facility] MMR 2003-05-05 00:00:[address] [facility] Polio (IPV/OPV) 2003-05-05 00:00:[address] [facility] Pneumococcal 7 Conjugate, PCV7 (Prevnar7) 2003-05-05 00:00:[address] [facility] MMR 2003-05-05 00:00:[address] [facility] Polio (IPV/OPV) 2003-05-05 00:00:[address] [facility] Pneumococcal 7 Conjugate, PCV7 (Prevnar7) 2003-05-05 00:00:[address] [facility] MMR 2003-05-05 00:00:[address] [facility] Polio (IPV/OPV) 2003-05-05 00:00:[address] [facility] Pneumococcal 7 Conjugate, PCV7 (Prevnar7) 2003-05-05 00:00:[address] [facility] MMR 2003-05-05 00:00:[address] [facility] Polio (IPV/OPV) 2003-05-05 00:00:[address] [facility] Pneumococcal 7 Conjugate, PCV7 (Prevnar7) 2003-05-05 00:00:[address] [facility] MMR 2003-05-05 00:00:[address] [facility] Polio (IPV/OPV) 2003-05-05 00:00:[address] [facility] Pneumococcal 7 Conjugate, PCV7 (Prevnar7) 2003-05-05 00:00:[address] [facility] MMR 2003-05-05 00:00:[address] [facility] Polio (IPV/OPV) 2003-05-05 00:00:[address] [facility] Pneumococcal 7 Conjugate, PCV7 (Prevnar7) 2003-05-05 00:00:[address] [facility] MMR 2003-05-05 00:00:[address] [facility] Polio (IPV/OPV) 2003-05-05 00:00:[address] [facility] Pneumococcal 7 Conjugate, PCV7 (Prevnar7) 2003-05-05 00:00:00 Completed [facility] 2003-05-05 00:00:[address] [facility] Polio (IPV/OPV) 2003-05-05 00:00:[address] [facility] Pneumococcal 7 Conjugate, PCV7 (Prevnar7) 2003-05-05 00:00:[address] [facility] MMR 2003-05-05 00:00:00 Completed [facility] 2003-05-05 00:00:[address] [facility] Polio (IPV/OPV) 2003-05-05 00:00:[address] [facility] Pneumococcal 7 Conjugate, PCV7 (Prevnar7) 2003-05-05 00:00:[address] [facility] Polio (IPV/OPV) 2003-05-05 00:00:[address] [facility] MMR 2003-05-05 00:00:[address] [facility] Polio (IPV/OPV) 2003-05-05 00:00:[address] [facility] Pneumococcal 7 Conjugate, PCV7 (Prevnar7) 2003-05-05 00:00:[address] [facility] MMR 2003-05-05 00:00:[address] [facility] Polio (IPV/OPV) 2003-05-05 00:00:[address] [facility] Pneumococcal 7 Conjugate, PCV7 (Prevnar7) 2003-05-05 00:00:[address] [facility] Pneumococcal 7 Conjugate, PCV7 (Prevnar7) 2003-05-05 00:00:[address] [facility] MMR 2003-05-05 00:00:[address] [facility] Polio (IPV/OPV) 2003-05-05 00:00:[address] [facility] Pneumococcal 7 Conjugate, PCV7 (Prevnar7) 2003-05-05 00:00:[address] [facility] MMR 2003-05-05 00:00:[address] [facility] Polio (IPV/OPV) 2003-05-05 00:00:[address] [facility] Pneumococcal 7 Conjugate, PCV7 (Prevnar7) 2003-05-05 00:00:00 Completed [facility] 2003-05-05 00:00:[address] [facility] Polio (IPV/OPV) 2003-05-05 00:00:[address] [facility] Pneumococcal 7 Conjugate, PCV7 (Prevnar7) 2003-05-05 00:00:00 Completed [facility] 2003-05-05 00:00:[address] [facility] Polio (IPV/OPV) 2003-05-05 00:00:[address] [facility] Pneumococcal 7 Conjugate, PCV7 (Prevnar7) 2003-05-05 00:00:00 Completed [facility] 2003-05-05 00[facility]00:[address] [facility] [facility] (IPV/OPV) 2003-05-05 00:00:[address] [facility] Pneumococcal 7 Conjugate, PCV7 (Prevnar7) 2003-05-05 00:00:00 Completed [facility] 2003-05-05 00:00:00 Completed [facility] 2003-05-05 00:00:[address] [facility] Polio (IPV/OPV) 2003-05-05 00:00:[address] [facility] Pneumococcal 7 Conjugate, PCV7 (Prevnar7) 2003-05-05 00:00:[address] [facility] Polio (IPV/OPV) 2003-05-05 00:00:[address] [facility] MMR 2003-05-05 00:00:[address] [facility] Polio (IPV/OPV) 2003-05-05 00:00:[address] [facility] Pneumococcal 7 Conjugate, PCV7 (Prevnar7) 2003-05-05 00:00:[address] [facility] MMR 2003-05-05 00:00:[address] [facility] Polio (IPV/OPV) 2003-05-05 00:00:[address] [facility] Pneumococcal 7 Conjugate, PCV7 (Prevnar7) 2003-05-05 00:00:[address] [facility] Pneumococcal 7 Conjugate, PCV7 (Prevnar7) 2003-05-05 00:00:[address] [facility] MMR 2003-05-05 00:00:[address] [facility] Polio (IPV/OPV) 2003-05-05 00:00:[address] [facility] Pneumococcal 7 Conjugate, PCV7 (Prevnar7) 2003-05-05 00:00:[address] [facility] MMR 2003-05-05 00:00:[address] [facility] Polio (IPV/OPV) 2003-05-05 00:00:[address] [facility] Pneumococcal 7 Conjugate, PCV7 (Prevnar7) 2003-05-05 00:00:[address] [facility] MMR 2003-05-05 00:00:[address] [facility] Polio (IPV/OPV) 2003-05-05 00:00:[address] [facility] Pneumococcal 7 Conjugate, PCV7 (Prevnar7) 2003-05-05 00:00:[address] [facility] MMR 2003-05-05 00:00:[address] [facility] Polio (IPV/OPV) 2003-05-05 00:00:[address] [facility] Pneumococcal 7 Conjugate, PCV7 (Prevnar7) 2003-05-05 00:00:[address] [facility] MMR 2003-05-05 00:00:[address] [facility] Polio (IPV/OPV) 2003-05-05 00:00:[address] [facility] Pneumococcal 7 Conjugate, PCV7 (Prevnar7) 2003-05-05 00:00:[address] [facility] MMR 2003-05-05 00:00:[address] [facility] Polio (IPV/OPV) 2003-05-05 00:00:[address] [facility] Pneumococcal 7 Conjugate, PCV7 (Prevnar7) 2003-05-05 00:00:[address] [facility] MMR 2003-05-05 00:00:[address] [facility] Polio (IPV/OPV) 2003-05-05 00:00:[address] [facility] MMR 2003-05-05 00:00:[address] [facility] Pneumococcal 7 Conjugate, PCV7 (Prevnar7) 2003-05-05 00:00:00 Completed [facility] 2003-05-05 00:00:[address] [facility] Polio (IPV/OPV) 2003-05-05 00:00:[address] [facility] Pneumococcal 7 Conjugate, PCV7 (Prevnar7) 2003-05-05 00:00:[address] [facility] Polio (IPV/OPV) 2003-05-05 00:00:[address] [facility] MMR 2003-05-05 00:00:[address] [facility] Polio (IPV/OPV) 2003-05-05 00:00:[address] [facility] Pneumococcal 7 Conjugate, PCV7 (Prevnar7) 2003-05-05 00:00:[address] [facility] Pneumococcal 7 Conjugate, PCV7 (Prevnar7) 2003-05-05 00:00:[address] [facility] MMR 2003-05-05 00:00:[address] [facility] Polio (IPV/OPV) 2003-05-05 00:00:[address] [facility] Pneumococcal 7 Conjugate, PCV7 (Prevnar7) 2003-05-05 00:00:[address] [facility] MMR 2003-05-05 00:00:[address] [facility] Polio (IPV/OPV) 2003-05-05 00:00:[address] [facility] Pneumococcal 7 Conjugate, PCV7 (Prevnar7) 2003-05-05 00:00:[address] [facility] MMR 2003-05-05 00:00:[address] [facility] Polio (IPV/OPV) 2003-05-05 00:00:[address] [facility] Pneumococcal 7 Conjugate, PCV7 (Prevnar7) 2003-05-05 00:00:[address] [facility] MMR 2003-05-05 00:00:[address] [facility] Polio (IPV/OPV) 2003-05-05 00:00:[address] [facility] Pneumococcal 7 Conjugate, PCV7 (Prevnar7) 2003-05-05 00:00:[address] [facility] MMR 2003-05-05 00:00:[address] [facility] MMR 2003-05-05 00:00:[address] [facility] Polio (IPV/OPV) 2003-05-05 00:00:[address] [facility] Polio (IPV/OPV) 2003-05-05 00:00:[address] [facility] Pneumococcal 7 Conjugate, PCV7 (Prevnar7) 2003-05-05 00:00:[address] [facility] MMR 2003-05-05 00:00:[address] [facility] Polio (IPV/OPV) 2003-05-05 00:00:[address] [facility] Pneumococcal 7 Conjugate, PCV7 (Prevnar7) 2003-05-05 00:00:[address] [facility] Pneumococcal 7 Conjugate, PCV7 (Prevnar7) 2003-05-05 00:00:[address] [facility] MMR 2003-05-05 00:00:[address] [facility] Polio (IPV/OPV) 2003-05-05 00:00:[address] [facility] Pneumococcal 7 Conjugate, PCV7 (Prevnar7) 2003-05-05 00:00:[address] [facility] MMR 2003-05-05 00:00:[address] [facility] Polio (IPV/OPV) 2003-05-05 00:00:[address] [facility] Pneumococcal 7 Conjugate, PCV7 (Prevnar7) 2003-05-05 00:00:[address] [facility] MMR 2003-05-05 00:00:[address] [facility] Polio (IPV/OPV) 2003-05-05 00:00:[address] [facility] Pneumococcal 7 Conjugate, PCV7 (Prevnar7) 2003-05-05 00:00:[address] [facility] MMR 2003-05-05 00:00:[address] [facility] Polio (IPV/OPV) 2003-05-05 00:00:[address] [facility] Pneumococcal 7 Conjugate, PCV7 (Prevnar7) 2003-05-05 00:00:00 Completed [facility] 2003-05-05 00:00:[address] [facility] Polio (IPV/OPV) 2003-05-05 00:00:[address] [facility] Pneumococcal 7 Conjugate, PCV7 (Prevnar7) 2003-05-05 00:00:[address] [facility] MMR 2003-05-05 00:00:00 Completed [facility] 2003-05-05 00:00:[address] [facility] Polio (IPV/OPV) 2003-05-05 00:00:[address] [facility] Pneumococcal 7 Conjugate, PCV7 (Prevnar7) 2003-05-05 00:00:[address] [facility] Polio (IPV/OPV) 2003-05-05 00:00:00 Completed [facility] 2003-05-05 00:00:[address] [facility] Polio (IPV/OPV) 2003-05-05 00:00:[address] [facility] Pneumococcal 7 Conjugate, PCV7 (Prevnar7) 2003-05-05 00:00:00 Completed [facility] 2003-05-05 00:00:[address] [facility] Polio (IPV/OPV) 2003-05-05 00:00:[address] [facility] Pneumococcal 7 Conjugate, PCV7 (Prevnar7) 2003-05-05 00:00:[address] [facility] Pneumococcal 7 Conjugate, PCV7 (Prevnar7) 2003-05-05 00:00:[address] [facility] MMR 2003-05-05 00:00:[address] [facility] Polio (IPV/OPV) 2003-05-05 00:00:[address] [facility] Pneumococcal 7 Conjugate, PCV7 (Prevnar7) 2003-05-05 00:00:[address] [facility] MMR 2003-05-05 00:00:[address] [facility] Polio (IPV/OPV) 2003-05-05 00:00:[address] [facility] Pneumococcal 7 Conjugate, PCV7 (Prevnar7) 2003-05-05 00:00:[address] [facility] MMR 2003-05-05 00:00:[address] [facility] Polio (IPV/OPV) 2003-05-05 00:00:[address] [facility] Pneumococcal 7 Conjugate, PCV7 (Prevnar7) 2003-05-05 00:00:[address] [facility] MMR 2003-05-05 00:00:[address] [facility] Polio (IPV/OPV) 2003-05-05 00:00:[address] [facility] Pneumococcal 7 Conjugate, PCV7 (Prevnar7) 2003-05-05 00:00:[address] [facility] MMR 2003-05-05 00:00:[address] [facility] Polio (IPV/OPV) 2003-05-05 00:00:[address] [facility] Pneumococcal 7 Conjugate, PCV7 (Prevnar7) 2003-05-05 00:00:00 Completed [facility] 2003-05-05 00:00:[address] [facility] Polio (IPV/OPV) 2003-05-05 00:00:[address] [facility] Pneumococcal 7 Conjugate, PCV7 (Prevnar7) 2003-05-05 00:00:00 Completed [facility] 2003-05-05 00:00:00 Completed [facility] 2003-05-05 00:00:[address] [facility] Polio (IPV/OPV) 2003-05-05 00:00:[address] [facility] Pneumococcal 7 Conjugate, PCV7 (Prevnar7) 2003-05-05 00:00:[address] [facility] Polio (IPV/OPV) 2003-05-05 00:00:[address] [facility] MMR 2003-05-05 00:00:[address] [facility] Polio (IPV/OPV) 2003-05-05 00:00:[address] [facility] Pneumococcal 7 Conjugate, PCV7 (Prevnar7) 2003-05-05 00:00:[address] [facility] Pneumococcal 7 Conjugate, PCV7 (Prevnar7) 2003-05-05 00:00:[address] [facility] MMR 2003-05-05 00:00:[address] [facility] Polio (IPV/OPV) 2003-05-05 00:00:[address] [facility] Pneumococcal 7 Conjugate, PCV7 (Prevnar7) 2003-05-05 00:00:[address] [facility] MMR 2003-05-05 00:00:[address] [facility] Polio (IPV/OPV) 2003-05-05 00:00:[address] [facility] Pneumococcal 7 Conjugate, PCV7 (Prevnar7) 2003-05-05 00:00:[address] [facility] MMR 2003-05-05 00:00:[address] [facility] Polio (IPV/OPV) 2003-05-05 00:00:[address] [facility] Pneumococcal 7 Conjugate, PCV7 (Prevnar7) 2003-05-05 00:00:00 Completed [facility] 2003-05-05 00:00:[address] [facility] Polio (IPV/OPV) 2003-05-05 00:00:[address] [facility] Pneumococcal 7 Conjugate, PCV7 (Prevnar7) 2003-05-05 00:00:00 Completed [facility] 2003-05-05 00:00:[address] [facility] Polio (IPV/OPV) 2003-05-05 00:00:[address] [facility] Pneumococcal 7 Conjugate, PCV7 (Prevnar7) 2003-05-05 00:00:00 Completed [facility] 2003-05-05 00:00:[address] [facility] Polio (IPV/OPV) 2003-05-05 00:00:[address] [facility] Pneumococcal 7 Conjugate, PCV7 (Prevnar7) 2003-05-05 00:00:[address] [facility] MMR 2003-05-05 00:00:[address] [facility] MMR 2003-05-05 00:00:[address] [facility] Polio (IPV/OPV) 2003-05-05 00:00:[address] [facility] Pneumococcal 7 Conjugate, PCV7 (Prevnar7) 2003-05-05 00:00:[address] [facility] Polio (IPV/OPV) 2003-05-05 00:00:[address] [facility] MMR 2003-05-05 00:00:[address] [facility] Polio (IPV/OPV) 2003-05-05 00:00:[address] [facility] Pneumococcal 7 Conjugate, PCV7 (Prevnar7) 2003-05-05 00:00:[address] [facility] Pneumococcal 7 Conjugate, PCV7 (Prevnar7) 2003-05-05 00:00:[address] [facility] MMR 2003-05-05 00:00:[address] [facility] Polio (IPV/OPV) 2003-05-05 00:00:[address] [facility] Pneumococcal 7 Conjugate, PCV7 (Prevnar7) 2003-05-05 00:00:[address] [facility] MMR 2003-05-05 00:00:[address] [facility] Polio (IPV/OPV) 2003-05-05 00:00:[address] [facility] Pneumococcal 7 Conjugate, PCV7 (Prevnar7) 2003-05-05 00:00:[address] [facility] MMR 2003-05-05 00:00:[address] [facility] Polio (IPV/OPV) 2003-05-05 00:00:[address] [facility] Pneumococcal 7 Conjugate, PCV7 (Prevnar7) 2003-05-05 00:00:[address] [facility] MMR 2003-05-05 00:00:[address] [facility] Polio (IPV/OPV) 2003-05-05 00:00:[address] [facility] Pneumococcal 7 Conjugate, PCV7 (Prevnar7) 2003-05-05 00:00:[address] [facility] MMR 2003-05-05 00:00:[address] [facility] Polio (IPV/OPV) 2003-05-05 00:00:[address] [facility] Pneumococcal 7 Conjugate, PCV7 (Prevnar7) 2003-05-05 00:00:[address] [facility] MMR 2003-05-05 00:00:[address] [facility] Polio (IPV/OPV) 2003-05-05 00:00:[address] [facility] Pneumococcal 7 Conjugate, PCV7 (Prevnar7) 2003-05-05 00:00:00 Completed [facility] 2003-05-05 00:00:[address] [facility] MMR 2003-05-05 00:00:[address] [facility] Polio (IPV/OPV) 2003-05-05 00:00:[address] [facility] Pneumococcal 7 Conjugate, PCV7 (Prevnar7) 2003-05-05 00:00:[address] [facility] MMR 2003-05-05 00:00:[address] [facility] Polio (IPV/OPV) 2003-05-05 00:00:[address] [facility] Polio (IPV/OPV) 2003-05-05 00:00:[address] [facility] Pneumococcal 7 Conjugate, PCV7 (Prevnar7) 2003-05-05 00:00:[address] [facility] Pneumococcal 7 Conjugate, PCV7 (Prevnar7) 2003-05-05 00:00:[address] [facility] MMR 2003-05-05 00:00:[address] [facility] Polio (IPV/OPV) 2003-05-05 00:00:[address] [facility] Pneumococcal 7 Conjugate, PCV7 (Prevnar7) 2003-05-05 00:00:00 Completed [facility] 2003-05-05 00:00:[address] [facility] Polio (IPV/OPV) 2003-05-05 00:00:[address] [facility] Pneumococcal 7 Conjugate, PCV7 (Prevnar7) 2003-05-05 00:00:[address] [facility] MMR 2003-05-05 00:00:[address] [facility] Polio (IPV/OPV) 2003-05-05 00:00:[address] [facility] Pneumococcal 7 Conjugate, PCV7 (Prevnar7) 2003-05-05 00:00:[address] [facility] MMR 2003-05-05 00:00:[address] [facility] MMR 2003-05-05 00:00:[address] [facility] Polio (IPV/OPV) 2003-05-05 00:00:[address] [facility] Pneumococcal 7 Conjugate, PCV7 (Prevnar7) 2003-05-05 00:00:[address] [facility] Polio (IPV/OPV) 2003-05-05 00:00:[address] [facility] MMR 2003-05-05 00:00:[address] [facility] Polio (IPV/OPV) 2003-05-05 00:00:[address] [facility] Pneumococcal 7 Conjugate, PCV7 (Prevnar7) 2003-05-05 00:00:[address] [facility] MMR 2003-05-05 00:00:[address] [facility] Pneumococcal 7 Conjugate, PCV7 (Prevnar7) 2003-05-05 00:00:[address] [facility] Polio (IPV/OPV) 2003-05-05 00:00:[address] [facility] Pneumococcal 7 Conjugate, PCV7 (Prevnar7) 2003-05-05 00:00:[address] [facility] MMR 2003-05-05 00:00:[address] [facility] Polio (IPV/OPV) 2003-05-05 00:00:[address] [facility] Pneumococcal 7 Conjugate, PCV7 (Prevnar7) 2003-05-05 00:00:[address] [facility] MMR 2003-05-05 00:00:[address] [facility] Polio (IPV/OPV) 2003-05-05 00:00:[address] [facility] Pneumococcal 7 Conjugate, PCV7 (Prevnar7) 2003-05-05 00:00:[address] [facility] MMR 2003-05-05 00:00:[address] [facility] Polio (IPV/OPV) 2003-05-05 00:00:[address] [facility] Pneumococcal 7 Conjugate, PCV7 (Prevnar7) 2003-05-05 00:00:[address] [facility] MMR 2003-05-05 00:00:[address] [facility] Polio (IPV/OPV) 2003-05-05 00:00:[address] [facility] Pneumococcal 7 Conjugate, PCV7 (Prevnar7) 2003-05-05 00:00:[address] [facility] MMR 2003-05-05 00:00:[address] [facility] Polio (IPV/OPV) 2003-05-05 00:00:[address] [facility] Pneumococcal 7 Conjugate, PCV7 (Prevnar7) 2003-05-05 00:00:[address] [facility] MMR 2003-05-05 00:00:[address] [facility] Polio (IPV/OPV) 2003-05-05 00:00:[address] [facility] Pneumococcal 7 Conjugate, PCV7 (Prevnar7) 2003-05-05 00:00:[address] [facility] MMR 2003-05-05 00:00:[address] [facility] Polio (IPV/OPV) 2003-05-05 00:00:[address] [facility] Pneumococcal 7 Conjugate, PCV7 (Prevnar7) 2003-05-05 00:00:[address] [facility] HIB 4 Dose Schedule 2002 00:00:[address] [facility] Hep B, Adol or Pedi Dosage 2002 00:00:[address] [facility] Hep B, Adol or Pedi Dosage 2002 00:00:[address] [facility] DTAP 2002 00:00:[address] [facility] HIB 4 Dose Schedule 2002 00:00:[address] [facility] Hep B, Adol or Pedi Dosage 2002 00:00:[address] [facility] DTAP 2002 00:00:[address] [facility] HIB 4 Dose Schedule 2002 00:00:[address] [facility] Hep B, Adol or Pedi Dosage 2002 00:00:[address] [facility] DTAP 2002 00:00:[address] [facility] HIB 4 Dose Schedule 2002 00:00:[address] [facility] Hep B, Adol or Pedi Dosage 2002 00:00:[address] [facility] DTAP 2002 00:00:[address] [facility] HIB 4 Dose Schedule 2002 00:00:[address] [facility] Hep B, Adol or Pedi Dosage 2002 00:00:[address] [facility] DTAP 2002 00:00:[address] [facility] HIB 4 Dose Schedule 2002 00:00:[address] [facility] Hep B, Adol or Pedi Dosage 2002 00:00:[address] [facility] DTAP 2002 00:00:[address] [facility] HIB 4 Dose Schedule 2002 00:00:[address] [facility] Hep B, Adol or Pedi Dosage 2002 00:00:[address] [facility] DTAP 2002 00:00:[address] [facility] HIB 4 Dose Schedule 2002 00:00:[address] [facility] Hep B, Adol or Pedi Dosage 2002 00:00:[address] [facility] DTAP 2002 00:00:[address] [facility] DTAP 2002 00:00:[address] [facility] HIB 4 Dose Schedule 2002 00:00:[address] [facility] Hep B, Adol or Pedi Dosage 2002 00:00:[address] [facility] HIB 4 Dose Schedule 2002 00:00:[address] [facility] DTAP 2002 00:00:[address] [facility] HIB 4 Dose Schedule 2002 00:00:[address] [facility] Hep B, Adol or Pedi Dosage 2002 00:00:[address] [facility] Hep B, Adol or Pedi Dosage 2002 00:00:[address] [facility] DTAP 2002 00:00:[address] [facility] HIB 4 Dose Schedule 2002 00:00:[address] [facility] Hep B, Adol or Pedi Dosage 2002 00:00:[address] [facility] DTAP 2002 00:00:[address] [facility] HIB 4 Dose Schedule 2002 00:00:[address] [facility] Hep B, Adol or Pedi Dosage 2002 00:00:[address] [facility] DTAP 2002 00:00:[address] [facility] HIB 4 Dose Schedule 2002 00:00:[address] [facility] Hep B, Adol or Pedi Dosage 2002 00:00:[address] [facility] DTAP 2002 00:00:[address] [facility] HIB 4 Dose Schedule 2002 00:00:[address] [facility] Hep B, Adol or Pedi Dosage 2002 00:00:[address] [facility] DTAP 2002 00:00:[address] [facility] HIB 4 Dose Schedule 2002 00[facility]00:[address] [facility] Hep B, Adol or Pedi Dosage 2002 00:00:[address] [facility] DTAP 2002 00:00:[address] [facility] HIB 4 Dose Schedule 2002 00:00:[address] [facility] Hep B, Adol or Pedi Dosage 2002 00:00:[address] [facility] DTAP 2002 00:00:[address] [facility] HIB 4 Dose Schedule 2002 00:00:[address] [facility] Hep B, Adol or Pedi Dosage 2002 00:00:[address] [facility] DTAP 2002 00:00:[address] [facility] HIB 4 Dose Schedule 2002 00:00:[address] [facility] Hep B, Adol or Pedi Dosage 2002 00:00:[address] [facility] DTAP 2002 00:00:[address] [facility] DTAP 2002 00:00:[address] [facility] HIB 4 Dose Schedule 2002 00:00:[address] [facility] Hep B, Adol or Pedi Dosage 2002 00:00:[address] [facility] DTAP 2002 00:00:[address] [facility] HIB 4 Dose Schedule 2002 00:00:[address] [facility] HIB 4 Dose Schedule 2002 00:00:[address] [facility] Hep B, Adol or Pedi Dosage 2002 00:00:[address] [facility] DTAP 2002 00:00:[address] [facility] HIB 4 Dose Schedule 2002 00:00:[address] [facility] Hep B, Adol or Pedi Dosage 2002 00:00:[address] [facility] Hep B, Adol or Pedi Dosage 2002 00:00:[address] [facility] DTAP 2002 00:00:[address] [facility] HIB 4 Dose Schedule 2002 00:00:[address] [facility] Hep B, Adol or Pedi Dosage 2002 00:00:[address] [facility] DTAP 2002 00:00:[address] [facility] HIB 4 Dose Schedule 2002 00:00:[address] [facility] Hep B, Adol or Pedi Dosage 2002 00:00:[address] [facility] DTAP 2002 00:00:[address] [facility] HIB 4 Dose Schedule 2002 00:00:[address] [facility] Hep B, Adol or Pedi Dosage 2002 00:00:[address] [facility] DTAP 2002 00:00:[address] [facility] HIB 4 Dose Schedule 2002 00:00:[address] [facility] Hep B, Adol or Pedi Dosage 2002 00:00:[address] [facility] DTAP 2002 00:00:[address] [facility] HIB 4 Dose Schedule 2002 00:00:[address] [facility] Hep B, Adol or Pedi Dosage 2002 00:00:[address] [facility] DTAP 2002 00:00:[address] [facility] HIB 4 Dose Schedule 2002 00:00:[address] [facility] Hep B, Adol or Pedi Dosage 2002 00:00:[address] [facility] DTAP 2002 00:00:[address] [facility] DTAP 2002 00:00:[address] [facility] HIB 4 Dose Schedule 2002 00:00:[address] [facility] Hep B, Adol or Pedi Dosage 2002 00:00:[address] [facility] HIB 4 Dose Schedule 2002 00:00:[address] [facility] DTAP 2002 00:00:[address] [facility] HIB 4 Dose Schedule 2002 00:00:[address] [facility] Hep B, Adol or Pedi Dosage 2002 00:00:[address] [facility] Hep B, Adol or Pedi Dosage 2002 00:00:[address] [facility] DTAP 2002 00:00:[address] [facility] HIB 4 Dose Schedule 2002 00:00:[address] [facility] Hep B, Adol or Pedi Dosage 2002 00:00:[address] [facility] DTAP 2002 00:00:[address] [facility] HIB 4 Dose Schedule 2002 00:00:[address] [facility] Hep B, Adol or Pedi Dosage 2002 00:00:[address] [facility] DTAP 2002 00:00:[address] [facility] HIB 4 Dose Schedule 2002 00:00:[address] [facility] Hep B, Adol or Pedi Dosage 2002 00:00:[address] [facility] DTAP 2002 00:00:[address] [facility] HIB 4 Dose Schedule 2002 00:00:[address] [facility] Hep B, Adol or Pedi Dosage 2002 00:00:[address] [facility] DTAP 2002 00:00:[address] [facility] HIB 4 Dose Schedule 2002 00:00:[address] [facility] Hep B, Adol or Pedi Dosage 2002 00:00:[address] [facility] DTAP 2002 00:00:[address] [facility] HIB 4 Dose Schedule 2002 00:00:[address] [facility] Hep B, Adol or Pedi Dosage 2002 00:00:[address] [facility] DTAP 2002 00:00:[address] [facility] HIB 4 Dose Schedule 2002 00:00:[address] [facility] Hep B, Adol or Pedi Dosage 2002 00:00:[address] [facility] DTAP 2002 00:00:[address] [facility] DTAP 2002 00:00:[address] [facility] HIB 4 Dose Schedule 2002 00:00:[address] [facility] Hep B, Adol or Pedi Dosage 2002 00:00:[address] [facility] HIB 4 Dose Schedule 2002 00:00:[address] [facility] DTAP 2002 00:00:[address] [facility] HIB 4 Dose Schedule 2002 00:00:[address] [facility] Hep B, Adol or Pedi Dosage 2002 00:00:[address] [facility] DTAP 2002 00:00:[address] [facility] Hep B, Adol or Pedi Dosage 2002 00:00:[address] [facility] HIB 4 Dose Schedule 2002 00:00:[address] [facility] Hep B, Adol or Pedi Dosage 2002 00:00:[address] [facility] DTAP 2002 00:00:[address] [facility] HIB 4 Dose Schedule 2002 00:00:[address] [facility] Hep B, Adol or Pedi Dosage 2002 00:00:[address] [facility] DTAP 2002 00:00:[address] [facility] HIB 4 Dose Schedule 2002 00:00:[address] [facility] Hep B, Adol or Pedi Dosage 2002 00:00:[address] [facility] DTAP 2002 00:00:[address] [facility] HIB 4 Dose Schedule 2002 00:00:[address] [facility] Hep B, Adol or Pedi Dosage 2002 00:00:[address] [facility] DTAP 2002 00:00:[address] [facility] HIB 4 Dose Schedule 2002 00:00:[address] [facility] DTAP 2002 00:00:[address] [facility] Hep B, Adol or Pedi Dosage 2002 00:00:[address] [facility] HIB 4 Dose Schedule 2002 00:00:[address] [facility] DTAP 2002 00:00:[address] [facility] HIB 4 Dose Schedule 2002 00:00:[address] [facility] Hep B, Adol or Pedi Dosage 2002 00:00:[address] [facility] DTAP 2002 00:00:[address] [facility] Hep B, Adol or Pedi Dosage 2002 00:00:[address] [facility] HIB 4 Dose Schedule 2002 00:00:[address] [facility] Hep B, Adol or Pedi Dosage 2002 00:00:[address] [facility] DTAP 2002 00:00:[address] [facility] HIB 4 Dose Schedule 2002 00:00:[address] [facility] Hep B, Adol or Pedi Dosage 2002 00:00:[address] [facility] DTAP 2002 00:00:[address] [facility] HIB 4 Dose Schedule 2002 00:00:[address] [facility] Hep B, Adol or Pedi Dosage 2002 00:00:[address] [facility] DTAP 2002 00:00:[address] [facility] HIB 4 Dose Schedule 2002 00:00:[address] [facility] Hep B, Adol or Pedi Dosage 2002 00:00:[address] [facility] DTAP 2002 00:00:[address] [facility] HIB 4 Dose Schedule 2002 00:00:[address] [facility] Hep B, Adol or Pedi Dosage 2002 00:00:[address] [facility] DTAP 2002 00:00:[address] [facility] HIB 4 Dose Schedule 2002 00:00:[address] [facility] Hep B, Adol or Pedi Dosage 2002 00:00:[address] [facility] DTAP 2002 00:00:[address] [facility] DTAP 2002 00:00:[address] [facility] HIB 4 Dose Schedule 2002 00:00:[address] [facility] Hep B, Adol or Pedi Dosage 2002 00:00:[address] [facility] HIB 4 Dose Schedule 2002 00:00:[address] [facility] DTAP 2002 00:00:[address] [facility] HIB 4 Dose Schedule 2002 00:00:[address] [facility] Hep B, Adol or Pedi Dosage 2002 00:00:[address] [facility] Hep B, Adol or Pedi Dosage 2002 00:00:[address] [facility] DTAP 2002 00:00:[address] [facility] HIB 4 Dose Schedule 2002 00:00:[address] [facility] Hep B, Adol or Pedi Dosage 2002 00:00:[address] [facility] DTAP 2002 00:00:[address] [facility] HIB 4 Dose Schedule 2002 00:00:[address] [facility] Hep B, Adol or Pedi Dosage 2002 00:00:[address] [facility] DTAP 2002 00:00:[address] [facility] HIB 4 Dose Schedule 2002 00:00:[address] [facility] Hep B, Adol or Pedi Dosage 2002 00:00:[address] [facility] DTAP 2002 00:00:[address] [facility] HIB 4 Dose Schedule 2002 00:00:[address] [facility] Hep B, Adol or Pedi Dosage 2002 00:00:[address] [facility] DTAP 2002 00:00:[address] [facility] HIB 4 Dose Schedule 2002 00:00:[address] [facility] Hep B, Adol or Pedi Dosage 2002 00:00:[address] [facility] DTAP 2002 00:00:[address] [facility] HIB 4 Dose Schedule 2002 00:00:[address] [facility] Hep B, Adol or Pedi Dosage 2002 00:00:[address] [facility] DTAP 2002 00:00:[address] [facility] DTAP 2002 00:00:[address] [facility] HIB 4 Dose Schedule 2002 00:00:[address] [facility] Hep B, Adol or Pedi Dosage 2002 00:00:[address] [facility] HIB 4 Dose Schedule 2002 00:00:[address] [facility] DTAP 2002 00:00:[address] [facility] HIB 4 Dose Schedule 2002 00:00:[address] [facility] Hep B, Adol or Pedi Dosage 2002 00:00:[address] [facility] DTAP 2002 00:00:[address] [facility] HIB 4 Dose Schedule 2002 00:00:[address] [facility] Hep B, Adol or Pedi Dosage 2002 00:00:[address] [facility] Hep B, Adol or Pedi Dosage 2002 00:00:[address] [facility] DTAP 2002 00:00:[address] [facility] HIB 4 Dose Schedule 2002 00:00:[address] [facility] Hep B, Adol or Pedi Dosage 2002 00:00:[address] [facility] DTAP 2002 00:00:[address] [facility] HIB 4 Dose Schedule 2002 00:00:[address] [facility] Hep B, Adol or Pedi Dosage 2002 00:00:[address] [facility] DTAP 2002 00:00:[address] [facility] HIB 4 Dose Schedule 2002 00:00:[address] [facility] Hep B, Adol or Pedi Dosage 2002 00:00:[address] [facility] DTAP 2002 00:00:[address] [facility] HIB 4 Dose Schedule 2002 00:00:[address] [facility] Hep B, Adol or Pedi Dosage 2002 00:00:[address] [facility] DTAP 2002 00:00:[address] [facility] HIB 4 Dose Schedule 2002 00:00:[address] [facility] Hep B, Adol or Pedi Dosage 2002 00:00:[address] [facility] DTAP 2002 00:00:[address] [facility] DTAP 2002 00:00:[address] [facility] HIB 4 Dose Schedule 2002 00:00:[address] [facility] Hep B, Adol or Pedi Dosage 2002 00:00:[address] [facility] HIB 4 Dose Schedule 2002 00:00:[address] [facility] DTAP 2002 00:00:[address] [facility] HIB 4 Dose Schedule 2002 00:00:[address] [facility] Hep B, Adol or Pedi Dosage 2002 00:00:[address] [facility] DTAP 2002 00:00:[address] [facility] HIB 4 Dose Schedule 2002 00:00:[address] [facility] Hep B, Adol or Pedi Dosage 2002 00:00:[address] [facility] Hep B, Adol or Pedi Dosage 2002 00:00:[address] [facility] DTAP 2002 00:00:[address] [facility] HIB 4 Dose Schedule 2002 00:00:[address] [facility] Hep B, Adol or Pedi Dosage 2002 00:00:[address] [facility] DTAP 2002 00:00:[address] [facility] HIB 4 Dose Schedule 2002 00:00:[address] [facility] Hep B, Adol or Pedi Dosage 2002 00:00:[address] [facility] DTAP 2002 00:00:[address] [facility] HIB 4 Dose Schedule 2002 00:00:[address] [facility] Hep B, Adol or Pedi Dosage 2002 00:00:[address] [facility] DTAP 2002 00:00:[address] [facility] HIB 4 Dose Schedule 2002 00:00:[address] [facility] Hep B, Adol or Pedi Dosage 2002 00:00:[address] [facility] DTAP 2002 00:00:[address] [facility] HIB 4 Dose Schedule 2002 00:00:[address] [facility] Hep B, Adol or Pedi Dosage 2002 00:00:[address] [facility] DTAP 2002 00:00:[address] [facility] HIB 4 Dose Schedule 2002 00:00:[address] [facility] Hep B, Adol or Pedi Dosage 2002 00:00:[address] [facility] DTAP 2002 00:00:[address] [facility] DTAP 2002 00:00:[address] [facility] HIB 4 Dose Schedule 2002 00:00:[address] [facility] Hep B, Adol or Pedi Dosage 2002 00:00:[address] [facility] HIB 4 Dose Schedule 2002 00:00:[address] [facility] DTAP 2002 00:00:[address] [facility] HIB 4 Dose Schedule 2002 00:00:[address] [facility] Hep B, Adol or Pedi Dosage 2002 00:00:[address] [facility] Hep B, Adol or Pedi Dosage 2002 00:00:[address] [facility] DTAP 2002 00:00:[address] [facility] HIB 4 Dose Schedule 2002 00:00:[address] [facility] Hep B, Adol or Pedi Dosage 2002 00:00:[address] [facility] DTAP 2002 00:00:[address] [facility] HIB 4 Dose Schedule 2002 00:00:[address] [facility] Hep B, Adol or Pedi Dosage 2002 00:00:[address] [facility] DTAP 2002 00:00:[address] [facility] DTAP 2002 00:00:[address] [facility] HIB 4 Dose Schedule 2002 00:00:[address] [facility] Hep B, Adol or Pedi Dosage 2002 00:00:[address] [facility] HIB 4 Dose Schedule 2002 00:00:[address] [facility] DTAP 2002 00:00:[address] [facility] HIB 4 Dose Schedule 2002 00:00:[address] [facility] Hep B, Adol or Pedi Dosage 2002 00:00:[address] [facility] DTAP 2002 00:00:[address] [facility] HIB 4 Dose Schedule 2002 00:00:[address] [facility] Hep B, Adol or Pedi Dosage 2002 00:00:[address] [facility] Hep B, Adol or Pedi Dosage 2002 00:00:[address] [facility] DTAP 2002 00:00:[address] [facility] HIB 4 Dose Schedule 2002 00:00:[address] [facility] Hep B, Adol or Pedi Dosage 2002 00:00:[address] [facility] DTAP 2002 00:00:[address] [facility] HIB 4 Dose Schedule 2002 00:00:[address] [facility] Hep B, Adol or Pedi Dosage 2002 00:00:[address] [facility] DTAP 2002 00:00:[address] [facility] HIB 4 Dose Schedule 2002 00:00:[address] [facility] Hep B, Adol or Pedi Dosage 2002 00:00:[address] [facility] DTAP 2002 00:00:[address] [facility] HIB 4 Dose Schedule 2002 00:00:[address] [facility] Hep B, Adol or Pedi Dosage 2002 00:00:[address] [facility] DTAP 2002 00:00:[address] [facility] HIB 4 Dose Schedule 2002 00:00:[address] [facility] Hep B, Adol or Pedi Dosage 2002 00:00:[address] [facility] DTAP 2002 00:00:[address] [facility] HIB 4 Dose Schedule 2002 00:00:[address] [facility] Hep B, Adol or Pedi Dosage 2002 00:00:[address] [facility] DTAP 2002 00:00:[address] [facility] HIB 4 Dose Schedule 2002 00:00:[address] [facility] Hep B, Adol or Pedi Dosage 2002 00:00:[address] [facility] DTAP 2002 00:00:[address] [facility] HIB 4 Dose Schedule 2002 00:00:[address] [facility] Hep B, Adol or Pedi Dosage 2002 00:00:[address] [facility] DTAP 2002 00:00:[address] [facility] DTAP 2002 00:00:[address] [facility] HIB 4 Dose Schedule 2002 00:00:[address] [facility] Hep B, Adol or Pedi Dosage 2002 00:00:[address] [facility] DTAP 2002 00:00:[address] [facility] HIB 4 Dose Schedule 2002 00:00:[address] [facility] HIB 4 Dose Schedule 2002 00:00:[address] [facility] Hep B, Adol or Pedi Dosage 2002 00:00:[address] [facility] DTAP 2002 00:00:[address] [facility] HIB 4 Dose Schedule 2002 00:00:[address] [facility] Polio (IPV/OPV) 2002 00:00:[address] [facility] DTAP 2002 00:00:[address] [facility] HIB 4 Dose Schedule 2002 00:00:[address] [facility] Polio (IPV/OPV) 2002 00:00:[address] [facility] Polio (IPV/OPV) 2002 00:00:[address] [facility] DTAP 2002 00:00:[address] [facility] HIB 4 Dose Schedule 2002 00:00:[address] [facility] Polio (IPV/OPV) 2002 00:00:[address] [facility] DTAP 2002 00:00:[address] [facility] HIB 4 Dose Schedule 2002 00:00:[address] [facility] Polio (IPV/OPV) 2002 00:00:[address] [facility] DTAP 2002 00:00:[address] [facility] HIB 4 Dose Schedule 2002 00:00:[address] [facility] Polio (IPV/OPV) 2002 00:00:[address] [facility] DTAP 2002 00:00:[address] [facility] HIB 4 Dose Schedule 2002 00:00:[address] [facility] Polio (IPV/OPV) 2002 00:00:[address] [facility] DTAP 2002 00:00:[address] [facility] HIB 4 Dose Schedule 2002 00:00:[address] [facility] Polio (IPV/OPV) 2002 00:00:[address] [facility] DTAP 2002 00:00:[address] [facility] HIB 4 Dose Schedule 2002 00:00:[address] [facility] DTAP 2002 00:00:[address] [facility] Polio (IPV/OPV) 2002 00:00:[address] [facility] DTAP 2002 00:00:[address] [facility] HIB 4 Dose Schedule 2002 00:00:[address] [facility] HIB 4 Dose Schedule 2002 00:00:[address] [facility] Polio (IPV/OPV) 2002 00:00:[address] [facility] DTAP 2002 00:00:[address] [facility] HIB 4 Dose Schedule 2002 00:00:[address] [facility] Polio (IPV/OPV) 2002 00:00:[address] [facility] DTAP 2002 00:00:[address] [facility] HIB 4 Dose Schedule 2002 00:00:[address] [facility] Polio (IPV/OPV) 2002 00:00:[address] [facility] DTAP 2002 00:00:[address] [facility] HIB 4 Dose Schedule 2002 00:00:[address] [facility] Polio (IPV/OPV) 2002 00:00:[address] [facility] Polio (IPV/OPV) 2002 00:00:[address] [facility] DTAP 2002 00:00:[address] [facility] HIB 4 Dose Schedule 2002 00:00:[address] [facility] Polio (IPV/OPV) 2002 00:00:[address] [facility] DTAP 2002 00:00:[address] [facility] HIB 4 Dose Schedule 2002 00:00:[address] [facility] Polio (IPV/OPV) 2002 00:00:[address] [facility] DTAP 2002 00:00:[address] [facility] HIB 4 Dose Schedule 2002 00:00:[address] [facility] Polio (IPV/OPV) 2002 00:00:[address] [facility] DTAP 2002 00:00:[address] [facility] HIB 4 Dose Schedule 2002 00:00:[address] [facility] Polio (IPV/OPV) 2002 00:00:[address] [facility] DTAP 2002 00:00:[address] [facility] HIB 4 Dose Schedule 2002 00:00:[address] [facility] Polio (IPV/OPV) 2002 00:00:[address] [facility] DTAP 2002 00:00:[address] [facility] HIB 4 Dose Schedule 2002 00:00:[address] [facility] Polio (IPV/OPV) 2002 00:00:[address] [facility] DTAP 2002 00:00:[address] [facility] DTAP 2002 00:00:[address] [facility] HIB 4 Dose Schedule 2002 00:00:[address] [facility] Polio (IPV/OPV) 2002 00:00:[address] [facility] HIB 4 Dose Schedule 2002 00:00:[address] [facility] DTAP 2002 00:00:[address] [facility] HIB 4 Dose Schedule 2002 00:00:[address] [facility] Polio (IPV/OPV) 2002 00:00:[address] [facility] DTAP 2002 00:00:[address] [facility] HIB 4 Dose Schedule 2002 00:00:[address] [facility] Polio (IPV/OPV) 2002 00:00:[address] [facility] DTAP 2002 00:00:[address] [facility] HIB 4 Dose Schedule 2002 00:00:[address] [facility] Polio (IPV/OPV) 2002 00:00:[address] [facility] Polio (IPV/OPV) 2002 00:00:[address] [facility] DTAP 2002 00:00:[address] [facility] HIB 4 Dose Schedule 2002 00:00:[address] [facility] Polio (IPV/OPV) 2002 00:00:[address] [facility] DTAP 2002 00:00:[address] [facility] HIB 4 Dose Schedule 2002 00:00:[address] [facility] Polio (IPV/OPV) 2002 00:00:[address] [facility] DTAP 2002 00:00:[address] [facility] HIB 4 Dose Schedule 2002 00:00:[address] [facility] Polio (IPV/OPV) 2002 00:00:[address] [facility] DTAP 2002 00:00:[address] [facility] HIB 4 Dose Schedule 2002 00:00:[address] [facility] Polio (IPV/OPV) 2002 00:00:[address] [facility] DTAP 2002 00:00:[address] [facility] HIB 4 Dose Schedule 2002 00:00:[address] [facility] DTAP 2002 00:00:[address] [facility] Polio (IPV/OPV) 2002 00:00:[address] [facility] DTAP 2002 00:00:[address] [facility] HIB 4 Dose Schedule 2002 00:00:[address] [facility] HIB 4 Dose Schedule 2002 00:00:[address] [facility] Polio (IPV/OPV) 2002 00:00:[address] [facility] DTAP 2002 00:00:[address] [facility] HIB 4 Dose Schedule 2002 00:00:[address] [facility] Polio (IPV/OPV) 2002 00:00:[address] [facility] DTAP 2002 00:00:[address] [facility] HIB 4 Dose Schedule 2002 00:00:[address] [facility] Polio (IPV/OPV) 2002 00:00:[address] [facility] Polio (IPV/OPV) 2002 00:00:[address] [facility] DTAP 2002 00:00:[address] [facility] HIB 4 Dose Schedule 2002 00:00:[address] [facility] Polio (IPV/OPV) 2002 00:00:[address] [facility] DTAP 2002 00:00:[address] [facility] HIB 4 Dose Schedule 2002 00:00:[address] [facility] Polio (IPV/OPV) 2002 00:00:[address] [facility] DTAP 2002 00:00:[address] [facility] HIB 4 Dose Schedule 2002 00:00:[address] [facility] Polio (IPV/OPV) 2002 00:00:[address] [facility] DTAP 2002 00:00:[address] [facility] HIB 4 Dose Schedule 2002 00:00:[address] [facility] Polio (IPV/OPV) 2002 00:00:[address] [facility] DTAP 2002 00:00:[address] [facility] HIB 4 Dose Schedule 2002 00:00:[address] [facility] Polio (IPV/OPV) 2002 00:00:[address] [facility] DTAP 2002 00:00:[address] [facility] HIB 4 Dose Schedule 2002 00:00:[address] [facility] DTAP 2002 00:00:[address] [facility] Polio (IPV/OPV) 2002 00:00:[address] [facility] DTAP 2002 00:00:[address] [facility] HIB 4 Dose Schedule 2002 00:00:[address] [facility] HIB 4 Dose Schedule 2002 00:00:[address] [facility] Polio (IPV/OPV) 2002 00:00:[address] [facility] DTAP 2002 00:00:[address] [facility] HIB 4 Dose Schedule 2002 00:00:[address] [facility] Polio (IPV/OPV) 2002 00:00:[address] [facility] DTAP 2002 00:00:[address] [facility] HIB 4 Dose Schedule 2002 00:00:[address] [facility] Polio (IPV/OPV) 2002 00:00:[address] [facility] DTAP 2002 00:00:[address] [facility] HIB 4 Dose Schedule 2002 00:00:[address] [facility] Polio (IPV/OPV) 2002 00:00:[address] [facility] Polio (IPV/OPV) 2002 00:00:[address] [facility] DTAP 2002 00:00:[address] [facility] HIB 4 Dose Schedule 2002 00:00:[address] [facility] Polio (IPV/OPV) 2002 00:00:[address] [facility] DTAP 2002 00:00:[address] [facility] HIB 4 Dose Schedule 2002 00:00:[address] [facility] Polio (IPV/OPV) 2002 00:00:[address] [facility] DTAP 2002 00:00:[address] [facility] DTAP 2002 00:00:[address] [facility] HIB 4 Dose Schedule 2002 00:00:[address] [facility] Polio (IPV/OPV) 2002 00:00:[address] [facility] HIB 4 Dose Schedule 2002 00:00:[address] [facility] DTAP 2002 00:00:[address] [facility] HIB 4 Dose Schedule 2002 00:00:[address] [facility] Polio (IPV/OPV) 2002 00:00:[address] [facility] DTAP 2002 00:00:[address] [facility] HIB 4 Dose Schedule 2002 00:00:[address] [facility] Polio (IPV/OPV) 2002 00:00:[address] [facility] DTAP 2002 00:00:[address] [facility] HIB 4 Dose Schedule 2002 00:00:[address] [facility] Polio (IPV/OPV) 2002 00:00:[address] [facility] Polio (IPV/OPV) 2002 00:00:[address] [facility] DTAP 2002 00:00:[address] [facility] HIB 4 Dose Schedule 2002 00:00:[address] [facility] Polio (IPV/OPV) 2002 00:00:[address] [facility] DTAP 2002 00:00:[address] [facility] HIB 4 Dose Schedule 2002 00:00:[address] [facility] Polio (IPV/OPV) 2002 00:00:[address] [facility] DTAP 2002 00:00:[address] [facility] HIB 4 Dose Schedule 2002 00:00:[address] [facility] Polio (IPV/OPV) 2002 00:00:[address] [facility] DTAP 2002 00:00:[address] [facility] HIB 4 Dose Schedule 2002 00:00:[address] [facility] DTAP 2002 00:00:[address] [facility] Polio (IPV/OPV) 2002 00:00:[address] [facility] DTAP 2002 00:00:[address] [facility] HIB 4 Dose Schedule 2002 00:00:[address] [facility] HIB 4 Dose Schedule 2002 00:00:[address] [facility] Polio (IPV/OPV) 2002 00:00:[address] [facility] DTAP 2002 00:00:[address] [facility] HIB 4 Dose Schedule 2002 00:00:[address] [facility] Polio (IPV/OPV) 2002 00:00:[address] [facility] DTAP 2002 00:00:[address] [facility] HIB 4 Dose Schedule 2002 00:00:[address] [facility] Polio (IPV/OPV) 2002 00:00:[address] [facility] DTAP 2002 00:00:[address] [facility] Polio (IPV/OPV) 2002 00:00:[address] [facility] HIB 4 Dose Schedule 2002 00:00:[address] [facility] Polio (IPV/OPV) 2002 00:00:[address] [facility] DTAP 2002 00:00:[address] [facility] HIB 4 Dose Schedule 2002 00:00:[address] [facility] Polio (IPV/OPV) 2002 00:00:[address] [facility] DTAP 2002 00:00:[address] [facility] HIB 4 Dose Schedule 2002 00:00:[address] [facility] Polio (IPV/OPV) 2002 00:00:[address] [facility] DTAP 2002 00:00:[address] [facility] HIB 4 Dose Schedule 2002 00:00:[address] [facility] Polio (IPV/OPV) 2002 00:00:[address] [facility] DTAP 2002 00:00:[address] [facility] HIB 4 Dose Schedule 2002 00:00:[address] [facility] Polio (IPV/OPV) 2002 00:00:[address] [facility] DTAP 2002 00:00:[address] [facility] DTAP 2002 00:00:[address] [facility] HIB 4 Dose Schedule 2002 00:00:[address] [facility] Polio (IPV/OPV) 2002 00:00:[address] [facility] HIB 4 Dose Schedule 2002 00:00:[address] [facility] DTAP 2002 00:00:[address] [facility] HIB 4 Dose Schedule 2002 00:00:[address] [facility] Polio (IPV/OPV) 2002 00:00:[address] [facility] DTAP 2002 00:00:[address] [facility] HIB 4 Dose Schedule 2002 00:00:[address] [facility] Polio (IPV/OPV) 2002 00:00:[address] [facility] DTAP 2002 00:00:[address] [facility] HIB 4 Dose Schedule 2002 00:00:[address] [facility] Polio (IPV/OPV) 2002 00:00:[address] [facility] Polio (IPV/OPV) 2002 00:00:[address] [facility] DTAP 2002 00:00:[address] [facility] HIB 4 Dose Schedule 2002 00:00:[address] [facility] Polio (IPV/OPV) 2002 00:00:[address] [facility] DTAP 2002 00:00:[address] [facility] HIB 4 Dose Schedule 2002 00:00:[address] [facility] Polio (IPV/OPV) 2002 00:00:[address] [facility] DTAP 2002 00:00:[address] [facility] HIB 4 Dose Schedule 2002 00:00:[address] [facility] Polio (IPV/OPV) 2002 00:00:[address] [facility] DTAP 2002 00:00:[address] [facility] HIB 4 Dose Schedule 2002 00:00:[address] [facility] Polio (IPV/OPV) 2002 00:00:[address] [facility] DTAP 2002 00:00:[address] [facility] DTAP 2002 00:00:[address] [facility] HIB 4 Dose Schedule 2002 00:00:[address] [facility] Polio (IPV/OPV) 2002 00:00:[address] [facility] HIB 4 Dose Schedule 2002 00:00:[address] [facility] DTAP 2002 00:00:[address] [facility] HIB 4 Dose Schedule 2002 00:00:[address] [facility] Polio (IPV/OPV) 2002 00:00:[address] [facility] DTAP 2002 00:00:[address] [facility] HIB 4 Dose Schedule 2002 00:00:[address] [facility] Polio (IPV/OPV) 2002 00:00:[address] [facility] DTAP 2002 00:00:[address] [facility] HIB 4 Dose Schedule 2002 00:00:[address] [facility] Polio (IPV/OPV) 2002 00:00:[address] [facility] Polio (IPV/OPV) 2002 00:00:[address] [facility] DTAP 2002 00:00:[address] [facility] HIB 4 Dose Schedule 2002 00:00:[address] [facility] Polio (IPV/OPV) 2002 00:00:[address] [facility] DTAP 2002 00:00:[address] [facility] HIB 4 Dose Schedule 2002 00:00:[address] [facility] Polio (IPV/OPV) 2002 00:00:[address] [facility] DTAP 2002 00:00:[address] [facility] HIB 4 Dose Schedule 2002 00:00:[address] [facility] Polio (IPV/OPV) 2002 00:00:[address] [facility] DTAP 2002 00:00:[address] [facility] HIB 4 Dose Schedule 2002 00:00:[address] [facility] Polio (IPV/OPV) 2002 00:00:[address] [facility] DTAP 2002 00:00:[address] [facility] HIB 4 Dose Schedule 2002 00:00:[address] [facility] DTAP 2002 00:00:[address] [facility] Polio (IPV/OPV) 2002 00:00:[address] [facility] DTAP 2002 00:00:[address] [facility] HIB 4 Dose Schedule 2002 00:00:[address] [facility] Polio (IPV/OPV) 2002 00:00:[address] [facility] HIB 4 Dose Schedule 2002 00:00:[address] [facility] DTAP 2002 00:00:[address] [facility] HIB 4 Dose Schedule 2002 00:00:[address] [facility] Polio (IPV/OPV) 2002 00:00:[address] [facility] DTAP 2002 00:00:[address] [facility] HIB 4 Dose Schedule 2002 00:00:[address] [facility] Polio (IPV/OPV) 2002 00:00:[address] [facility] DTAP 2002 00:00:[address] [facility] HIB 4 Dose Schedule 2002 00:00:[address] [facility] DTAP 2002 00:00:[address] [facility] Polio (IPV/OPV) 2002 00:00:[address] [facility] Polio (IPV/OPV) 2002 00:00:[address] [facility] DTAP 2002 00:00:[address] [facility] HIB 4 Dose Schedule 2002 00:00:[address] [facility] Polio (IPV/OPV) 2002 00:00:[address] [facility] HIB 4 Dose Schedule 2002 00:00:[address] [facility] DTAP 2002 00:00:[address] [facility] HIB 4 Dose Schedule 2002 00:00:[address] [facility] Polio (IPV/OPV) 2002 00:00:[address] [facility] DTAP 2002 00:00:[address] [facility] HIB 4 Dose Schedule 2002 00:00:[address] [facility] Polio (IPV/OPV) 2002 00:00:[address] [facility] DTAP 2002 00:00:[address] [facility] HIB 4 Dose Schedule 2002 00:00:[address] [facility] Polio (IPV/OPV) 2002 00:00:[address] [facility] Polio (IPV/OPV) 2002 00:00:[address] [facility] DTAP 2002 00:00:[address] [facility] HIB 4 Dose Schedule 2002 00:00:[address] [facility] Polio (IPV/OPV) 2002 00:00:[address] [facility] DTAP 2002 00:00:[address] [facility] HIB 4 Dose Schedule 2002 00:00:[address] [facility] Polio (IPV/OPV) 2002 00:00:[address] [facility] DTAP 2002 00:00:[address] [facility] HIB 4 Dose Schedule 2002 00:00:[address] [facility] Polio (IPV/OPV) 2002 00:00:[address] [facility] DTAP 2002 00:00:[address] [facility] HIB 4 Dose Schedule 2002 00:00:[address] [facility] Polio (IPV/OPV) 2002 00:00:[address] [facility] DTAP 2002 00:00:[address] [facility] HIB 4 Dose Schedule 2002 00:00:[address] [facility] Polio (IPV/OPV) 2002 00:00:[address] [facility] DTAP 2002 00:00:[address] [facility] HIB 4 Dose Schedule 2002 00:00:[address] [facility] Polio (IPV/OPV) 2002 00:00:[address] [facility] DTAP 2002 00:00:[address] [facility] HIB 4 Dose Schedule 2002 00:00:[address] [facility] Polio (IPV/OPV) 2002 00:00:[address] [facility] DTAP 2002 00:00:[address] [facility] DTAP 2002 00:00:[address] [facility] HIB 4 Dose Schedule 2002 00:00:[address] [facility] Polio (IPV/OPV) 2002 00:00:[address] [facility] HIB 4 Dose Schedule 2002 00:00:[address] [facility] DTAP 2002 00:00:[address] [facility] HIB 4 Dose Schedule 2002 00:00:[address] [facility] Polio (IPV/OPV) 2002 00:00:[address] [facility] DTAP 2002 00:00:[address] [facility] Hep B, Adol or Pedi Dosage 2002 00:00:[address] [facility] Hep B, Adol or Pedi Dosage 2002 00:00:[address] [facility] Polio (IPV/OPV) 2002 00:00:[address] [facility] DTAP 2002 00:00:[address] [facility] HIB 4 Dose Schedule 2002 00:00:[address] [facility] [facility] Hep B, Adol or Pedi Dosage 2002 00:00:[address] [facility] Polio (IPV/OPV) 2002 00:00:[address] [facility] Polio (IPV/OPV) 2002 00:00:[address] [facility] DTAP 2002 00:00:[address] [facility] HIB 4 Dose Schedule 2002 00:00:[address] [facility] Hep B, Adol or Pedi Dosage 2002 00:00:[address] [facility] Polio (IPV/OPV) 2002 00:00:[address] [facility] DTAP 2002 00:00:[address] [facility] HIB 4 Dose Schedule 2002 00:00:[address] [facility] Hep B, Adol or Pedi Dosage 2002 00:00:[address] [facility] Polio (IPV/OPV) 2002 00:00:[address] [facility] DTAP 2002 00:00:[address] [facility] HIB 4 Dose Schedule 2002 00:00:[address] [facility] Hep B, Adol or Pedi Dosage 2002 00:00:[address] [facility] Polio (IPV/OPV) 2002 00:00:[address] [facility] DTAP 2002 00:00:[address] [facility] HIB 4 Dose Schedule 2002 00:00:[address] [facility] Hep B, Adol or Pedi Dosage 2002 00:00:[address] [facility] Polio (IPV/OPV) 2002 00:00:[address] [facility] DTAP 2002 00:00:[address] [facility] HIB 4 Dose Schedule 2002 00:00:[address] [facility] Hep B, Adol or Pedi Dosage 2002 00:00:[address] [facility] Polio (IPV/OPV) 2002 00:00:[address] [facility] DTAP 2002 00:00:[address] [facility] DTAP 2002 00:00:[address] [facility] HIB 4 Dose Schedule 2002 00:00:[address] [facility] Hep B, Adol or Pedi Dosage 2002 00:00:[address] [facility] Polio (IPV/OPV) 2002 00:00:[address] [facility] DTAP 2002 00:00:[address] [facility] HIB 4 Dose Schedule 2002 00:00:[address] [facility] HIB 4 Dose Schedule 2002 00:00:[address] [facility] Hep B, Adol or Pedi Dosage 2002 00:00:[address] [facility] Polio (IPV/OPV) 2002 00:00:[address] [facility] DTAP 2002 00:00:[address] [facility] HIB 4 Dose Schedule 2002 00:00:[address] [facility] Hep B, Adol or Pedi Dosage 2002 00:00:[address] [facility] Polio (IPV/OPV) 2002 00:00:[address] [facility] Hep B, Adol or Pedi Dosage 2002 00:00:[address] [facility] DTAP 2002 00:00:[address] [facility] HIB 4 Dose Schedule 2002 00:00:[address] [facility] Hep B, Adol or Pedi Dosage 2002 00:00:[address] [facility] Polio (IPV/OPV) 2002 00:00:[address] [facility] Polio (IPV/OPV) 2002 00:00:[address] [facility] DTAP 2002 00:00:[address] [facility] HIB 4 Dose Schedule 2002 00:00:[address] [facility] Hep B, Adol or Pedi Dosage 2002 00:00:[address] [facility] Polio (IPV/OPV) 2002 00:00:[address] [facility] DTAP 2002 00:00:[address] [facility] HIB 4 Dose Schedule 2002 00:00:[address] [facility] Hep B, Adol or Pedi Dosage 2002 00:00:[address] [facility] Polio (IPV/OPV) 2002 00:00:[address] [facility] DTAP 2002 00:00:[address] [facility] HIB 4 Dose Schedule 2002 00:00:[address] [facility] Hep B, Adol or Pedi Dosage 2002 00:00:[address] [facility] Polio (IPV/OPV) 2002 00:00:[address] [facility] DTAP 2002 00:00:[address] [facility] HIB 4 Dose Schedule 2002 00:00:[address] [facility] Hep B, Adol or Pedi Dosage 2002 00:00:[address] [facility] Polio (IPV/OPV) 2002 00:00:[address] [facility] DTAP 2002 00:00:[address] [facility] HIB 4 Dose Schedule 2002 00:00:[address] [facility] Hep B, Adol or Pedi Dosage 2002 00:00:[address] [facility] Polio (IPV/OPV) 2002 00:00:[address] [facility] DTAP 2002 00:00:[address] [facility] HIB 4 Dose Schedule 2002 00:00:[address] [facility] Hep B, Adol or Pedi Dosage 2002 00:00:[address] [facility] Polio (IPV/OPV) 2002 00:00:[address] [facility] DTAP 2002 00:00:[address] [facility] HIB 4 Dose Schedule 2002 00:00:[address] [facility] Hep B, Adol or Pedi Dosage 2002 00:00:[address] [facility] Polio (IPV/OPV) 2002 00:00:[address] [facility] DTAP 2002 00:00:[address] [facility] DTAP 2002 00:00:[address] [facility] HIB 4 Dose Schedule 2002 00:00:[address] [facility] Hep B, Adol or Pedi Dosage 2002 00:00:[address] [facility] Polio (IPV/OPV) 2002 00:00:[address] [facility] HIB 4 Dose Schedule 2002 00:00:[address] [facility] DTAP 2002 00:00:[address] [facility] HIB 4 Dose Schedule 2002 00:00:[address] [facility] Hep B, Adol or Pedi Dosage 2002 00:00:[address] [facility] Polio (IPV/OPV) 2002 00:00:[address] [facility] DTAP 2002 00:00:[address] [facility] HIB 4 Dose Schedule 2002 00:00:[address] [facility] Hep B, Adol or Pedi Dosage 2002 00:00:[address] [facility] Polio (IPV/OPV) 2002 00:00:[address] [facility] Hep B, Adol or Pedi Dosage 2002 00:00:[address] [facility] DTAP 2002 00:00:[address] [facility] HIB 4 Dose Schedule 2002 00:00:[address] [facility] Hep B, Adol or Pedi Dosage 2002 00:00:[address] [facility] Polio (IPV/OPV) 2002 00:00:[address] [facility] Polio (IPV/OPV) 2002 00:00:[address] [facility] DTAP 2002 00:00:[address] [facility] HIB 4 Dose Schedule 2002 00:00:[address] [facility] Hep B, Adol or Pedi Dosage 2002 00:00:[address] [facility] Polio (IPV/OPV) 2002 00:00:[address] [facility] DTAP 2002 00:00:[address] [facility] HIB 4 Dose Schedule 2002 00:00:[address] [facility] Hep B, Adol or Pedi Dosage 2002 00:00:[address] [facility] Polio (IPV/OPV) 2002 00:00:[address] [facility] DTAP 2002 00:00:[address] [facility] HIB 4 Dose Schedule 2002 00:00:[address] [facility] Hep B, Adol or Pedi Dosage 2002 00:00:[address] [facility] Polio (IPV/OPV) 2002 00:00:[address] [facility] DTAP 2002 00:00:[address] [facility] HIB 4 Dose Schedule 2002 00:00:[address] [facility] Hep B, Adol or Pedi Dosage 2002 00:00:[address] [facility] Polio (IPV/OPV) 2002 00:00:[address] [facility] DTAP 2002 00:00:[address] [facility] HIB 4 Dose Schedule 2002 00:00:[address] [facility] DTAP 2002 00:00:[address] [facility] Hep B, Adol or Pedi Dosage 2002 00:00:[address] [facility] Polio (IPV/OPV) 2002 00:00:[address] [facility] HIB 4 Dose Schedule 2002 00:00:[address] [facility] DTAP 2002 00:00:[address] [facility] HIB 4 Dose Schedule 2002 00:00:[address] [facility] Hep B, Adol or Pedi Dosage 2002 00:00:[address] [facility] Polio (IPV/OPV) 2002 00:00:[address] [facility] DTAP 2002 00:00:[address] [facility] HIB 4 Dose Schedule 2002 00:00:[address] [facility] Hep B, Adol or Pedi Dosage 2002 00:00:[address] [facility] Polio (IPV/OPV) 2002 00:00:[address] [facility] Hep B, Adol or Pedi Dosage 2002 00:00:[address] [facility] DTAP 2002 00:00:[address] [facility] HIB 4 Dose Schedule 2002 00:00:[address] [facility] Hep B, Adol or Pedi Dosage 2002 00:00:[address] [facility] Polio (IPV/OPV) 2002 00:00:[address] [facility] Polio (IPV/OPV) 2002 00:00:[address] [facility] DTAP 2002 00:00:[address] [facility] HIB 4 Dose Schedule 2002 00:00:[address] [facility] Hep B, Adol or Pedi Dosage 2002 00:00:[address] [facility] Polio (IPV/OPV) 2002 00:00:[address] [facility] DTAP 2002 00:00:[address] [facility] HIB 4 Dose Schedule 2002 00:00:[address] [facility] Hep B, Adol or Pedi Dosage 2002 00:00:[address] [facility] Polio (IPV/OPV) 2002 00:00:[address] [facility] DTAP 2002 00:00:[address] [facility] HIB 4 Dose Schedule 2002 00:00:[address] [facility] Hep B, Adol or Pedi Dosage 2002 00:00:[address] [facility] Polio (IPV/OPV) 2002 00:00:[address] [facility] DTAP 2002 00:00:[address] [facility] HIB 4 Dose Schedule 2002 00:00:[address] [facility] Hep B, Adol or Pedi Dosage 2002 00:00:[address] [facility] Polio (IPV/OPV) 2002 00:00:[address] [facility] DTAP 2002 00:00:[address] [facility] HIB 4 Dose Schedule 2002 00:00:[address] [facility] Hep B, Adol or Pedi Dosage 2002 00:00:[address] [facility] Polio (IPV/OPV) 2002 00:00:[address] [facility] DTAP 2002 00:00:[address] [facility] DTAP 2002 00:00:[address] [facility] HIB 4 Dose Schedule 2002 00:00:[address] [facility] Hep B, Adol or Pedi Dosage 2002 00:00:[address] [facility] Polio (IPV/OPV) 2002 00:00:[address] [facility] DTAP 2002 00:00:[address] [facility] HIB 4 Dose Schedule 2002 00:00:[address] [facility] HIB 4 Dose Schedule 2002 00:00:[address] [facility] Hep B, Adol or Pedi Dosage 2002 00:00:[address] [facility] Polio (IPV/OPV) 2002 00:00:[address] [facility] DTAP 2002 00:00:[address] [facility] HIB 4 Dose Schedule 2002 00:00:[address] [facility] Hep B, Adol or Pedi Dosage 2002 00:00:[address] [facility] Polio (IPV/OPV) 2002 00:00:[address] [facility] Hep B, Adol or Pedi Dosage 2002 00:00:[address] [facility] DTAP 2002 00:00:[address] [facility] HIB 4 Dose Schedule 2002 00:00:[address] [facility] Hep B, Adol or Pedi Dosage 2002 00:00:[address] [facility] Polio (IPV/OPV) 2002 00:00:[address] [facility] Polio (IPV/OPV) 2002 00:00:[address] [facility] DTAP 2002 00:00:[address] [facility] HIB 4 Dose Schedule 2002 00:00:[address] [facility] Hep B, Adol or Pedi Dosage 2002 00:00:[address] [facility] Polio (IPV/OPV) 2002 00:00:[address] [facility] DTAP 2002 00:00:[address] [facility] HIB 4 Dose Schedule 2002 00:00:[address] [facility] Hep B, Adol or Pedi Dosage 2002 00:00:[address] [facility] Polio (IPV/OPV) 2002 00:00:[address] [facility] DTAP 2002 00:00:[address] [facility] HIB 4 Dose Schedule 2002 00:00:[address] [facility] Hep B, Adol or Pedi Dosage 2002 00:00:[address] [facility] Polio (IPV/OPV) 2002 00:00:[address] [facility] DTAP 2002 00:00:[address] [facility] DTAP 2002 00:00:[address] [facility] HIB 4 Dose Schedule 2002 00:00:[address] [facility] Hep B, Adol or Pedi Dosage 2002 00:00:[address] [facility] Polio (IPV/OPV) 2002 00:00:[address] [facility] HIB 4 Dose Schedule 2002 00:00:[address] [facility] DTAP 2002 00:00:[address] [facility] HIB 4 Dose Schedule 2002 00:00:[address] [facility] Hep B, Adol or Pedi Dosage 2002 00:00:[address] [facility] Polio (IPV/OPV) 2002 00:00:[address] [facility] Hep B, Adol or Pedi Dosage 2002 00:00:[address] [facility] DTAP 2002 00:00:[address] [facility] HIB 4 Dose Schedule 2002 00:00:[address] [facility] Hep B, Adol or Pedi Dosage 2002 00:00:[address] [facility] Polio (IPV/OPV) 2002 00:00:[address] [facility] Polio (IPV/OPV) 2002 00:00:[address] [facility] DTAP 2002 00:00:[address] [facility] HIB 4 Dose Schedule 2002 00:00:[address] [facility] Hep B, Adol or Pedi Dosage 2002 00:00:[address] [facility] Polio (IPV/OPV) 2002 00:00:[address] [facility] DTAP 2002 00:00:[address] [facility] HIB 4 Dose Schedule 2002 00:00:[address] [facility] Hep B, Adol or Pedi Dosage 2002 00:00:[address] [facility] Polio (IPV/OPV) 2002 00:00:[address] [facility] DTAP 2002 00:00:[address] [facility] HIB 4 Dose Schedule 2002 00:00:[address] [facility] Hep B, Adol or Pedi Dosage 2002 00:00:[address] [facility] Polio (IPV/OPV) 2002 00:00:[address] [facility] DTAP 2002 00:00:[address] [facility] HIB 4 Dose Schedule 2002 00:00:[address] [facility] Hep B, Adol or Pedi Dosage 2002 00:00:[address] [facility] Polio (IPV/OPV) 2002 00:00:[address] [facility] DTAP 2002 00:00:[address] [facility] DTAP 2002 00:00:[address] [facility] HIB 4 Dose Schedule 2002 00:00:[address] [facility] Hep B, Adol or Pedi Dosage 2002 00:00:[address] [facility] Polio (IPV/OPV) 2002 00:00:[address] [facility] HIB 4 Dose Schedule 2002 00:00:[address] [facility] DTAP 2002 00:00:[address] [facility] HIB 4 Dose Schedule 2002 00:00:[address] [facility] Hep B, Adol or Pedi Dosage 2002 00:00:[address] [facility] Polio (IPV/OPV) 2002 00:00:[address] [facility] DTAP 2002 00:00:[address] [facility] HIB 4 Dose Schedule 2002 00:00:[address] [facility] Hep B, Adol or Pedi Dosage 2002 00:00:[address] [facility] Polio (IPV/OPV) 2002 00:00:[address] [facility] Hep B, Adol or Pedi Dosage 2002 00:00:[address] [facility] DTAP 2002 00:00:[address] [facility] HIB 4 Dose Schedule 2002 00:00:[address] [facility] Hep B, Adol or Pedi Dosage 2002 00:00:[address] [facility] Polio (IPV/OPV) 2002 00:00:[address] [facility] Polio (IPV/OPV) 2002 00:00:[address] [facility] DTAP 2002 00:00:[address] [facility] HIB 4 Dose Schedule 2002 00:00:[address] [facility] Hep B, Adol or Pedi Dosage 2002 00:00:[address] [facility] Polio (IPV/OPV) 2002 00:00:[address] [facility] DTAP 2002 00:00:[address] [facility] HIB 4 Dose Schedule 2002 00:00:[address] [facility] Hep B, Adol or Pedi Dosage 2002 00:00:[address] [facility] Polio (IPV/OPV) 2002 00:00:[address] [facility] DTAP 2002 00:00:[address] [facility] HIB 4 Dose Schedule 2002 00:00:[address] [facility] Hep B, Adol or Pedi Dosage 2002 00:00:[address] [facility] Polio (IPV/OPV) 2002 00:00:[address] [facility] DTAP 2002 00:00:[address] [facility] HIB 4 Dose Schedule 2002 00:00:[address] [facility] Hep B, Adol or Pedi Dosage 2002 00:00:[address] [facility] Polio (IPV/OPV) 2002 00:00:[address] [facility] DTAP 2002 00:00:[address] [facility] HIB 4 Dose Schedule 2002 00:00:[address] [facility] Hep B, Adol or Pedi Dosage 2002 00:00:[address] [facility] Polio (IPV/OPV) 2002 00:00:[address] [facility] DTAP 2002 00:00:[address] [facility] DTAP 2002 00:00:[address] [facility] HIB 4 Dose Schedule 2002 00:00:[address] [facility] Hep B, Adol or Pedi Dosage 2002 00:00:[address] [facility] Polio (IPV/OPV) 2002 00:00:[address] [facility] HIB 4 Dose Schedule 2002 00:00:[address] [facility] DTAP 2002 00:00:[address] [facility] HIB 4 Dose Schedule 2002 00:00:[address] [facility] Hep B, Adol or Pedi Dosage 2002 00:00:[address] [facility] Polio (IPV/OPV) 2002 00:00:[address] [facility] DTAP 2002 00:00:[address] [facility] Hep B, Adol or Pedi Dosage 2002 00:00:[address] [facility] HIB 4 Dose Schedule 2002 00:00:[address] [facility] Hep B, Adol or Pedi Dosage 2002 00:00:[address] [facility] Polio (IPV/OPV) 2002 00:00:[address] [facility] Polio (IPV/OPV) 2002 00:00:[address] [facility] DTAP 2002 00:00:[address] [facility] HIB 4 Dose Schedule 2002 00:00:[address] [facility] Hep B, Adol or Pedi Dosage 2002 00:00:[address] [facility] Polio (IPV/OPV) 2002 00:00:[address] [facility] DTAP 2002 00:00:[address] [facility] HIB 4 Dose Schedule 2002 00:00:[address] [facility] Hep B, Adol or Pedi Dosage 2002 00:00:[address] [facility] Polio (IPV/OPV) 2002 00:00:[address] [facility] DTAP 2002 00:00:[address] [facility] HIB 4 Dose Schedule 2002 00:00:[address] [facility] Hep B, Adol or Pedi Dosage 2002 00:00:[address] [facility] Polio (IPV/OPV) 2002 00:00:[address] [facility] DTAP 2002 00:00:[address] [facility] HIB 4 Dose Schedule 2002 00:00:[address] [facility] Hep B, Adol or Pedi Dosage 2002 00:00:[address] [facility] [facility] (IPV/OPV[facility] 2002 00:00:[address] [facility] DTAP 2002 00:00:[address] [facility] HIB 4 Dose Schedule 2002 00:00:[address] [facility] Hep B, Adol or Pedi Dosage 2002 00:00:[address] [facility] Polio (IPV/OPV) 2002 00:00:[address] [facility] DTAP 2002 00:00:[address] [facility] DTAP 2002 00:00:[address] [facility] HIB 4 Dose Schedule 2002 00:00:[address] [facility] Hep B, Adol or Pedi Dosage 2002 00:00:[address] [facility] Polio (IPV/OPV) 2002 00:00:[address] [facility] HIB 4 Dose Schedule 2002 00:00:[address] [facility] DTAP 2002 00:00:[address] [facility] HIB 4 Dose Schedule 2002 00:00:[address] [facility] Hep B, Adol or Pedi Dosage 2002 00:00:[address] [facility] Polio (IPV/OPV) 2002 00:00:[address] [facility] DTAP 2002 00:00:[address] [facility] HIB 4 Dose Schedule 2002 00:00:[address] [facility] Hep B, Adol or Pedi Dosage 2002 00:00:[address] [facility] Hep B, Adol or Pedi Dosage 2002 00:00:[address] [facility] Polio (IPV/OPV) 2002 00:00:[address] [facility] DTAP 2002 00:00:[address] [facility] Polio (IPV/OPV) 2002 00:00:[address] [facility] HIB 4 Dose Schedule 2002 00:00:[address] [facility] Hep B, Adol or Pedi Dosage 2002 00:00:[address] [facility] Polio (IPV/OPV) 2002 00:00:[address] [facility] DTAP 2002 00:00:[address] [facility] HIB 4 Dose Schedule 2002 00:00:[address] [facility] Hep B, Adol or Pedi Dosage 2002 00:00:[address] [facility] Polio (IPV/OPV) 2002 00:00:[address] [facility] DTAP 2002 00:00:[address] [facility] HIB 4 Dose Schedule 2002 00:00:[address] [facility] Hep B, Adol or Pedi Dosage 2002 00:00:[address] [facility] Polio (IPV/OPV) 2002 00:00:[address] [facility] DTAP 2002 00:00:[address] [facility] HIB 4 Dose Schedule 2002 00:00:[address] [facility] Hep B, Adol or Pedi Dosage 2002 00:00:[address] [facility] Polio (IPV/OPV) 2002 00:00:[address] [facility] DTAP 2002 00:00:[address] [facility] HIB 4 Dose Schedule 2002 00:00:[address] [facility] Hep B, Adol or Pedi Dosage 2002 00:00:[address] [facility] Polio (IPV/OPV) 2002 00:00:[address] [facility] DTAP 2002 00:00:[address] [facility] HIB 4 Dose Schedule 2002 00:00:[address] [facility] DTAP 2002 00:00:[address] [facility] Hep B, Adol or Pedi Dosage 2002 00:00:[address] [facility] Polio (IPV/OPV) 2002 00:00:[address] [facility] DTAP 2002 00:00:[address] [facility] HIB 4 Dose Schedule 2002 00:00:[address] [facility] HIB 4 Dose Schedule 2002 00:00:[address] [facility] Hep B, Adol or Pedi Dosage 2002 00:00:[address] [facility] Polio (IPV/OPV) 2002 00:00:[address] [facility] DTAP 2002 00:00:[address] [facility] DTAP 2002 00:00:[address] [facility] HIB 4 Dose Schedule 2002 00:00:[address] [facility] Hep B, Adol or Pedi Dosage 2002 00:00:[address] [facility] Polio (IPV/OPV) 2002 00:00:[address] [facility] Hep B, Adol or Pedi Dosage 2002 00:00:[address] [facility] DTAP 2002 00:00:[address] [facility] HIB 4 Dose Schedule 2002 00:00:[address] [facility] Hep B, Adol or Pedi Dosage 2002 00:00:[address] [facility] Polio (IPV/OPV) 2002 00:00:[address] [facility] Polio (IPV/OPV) 2002 00:00:[address] [facility] DTAP 2002 00:00:[address] [facility] HIB 4 Dose Schedule 2002 00:00:[address] [facility] Hep B, Adol or Pedi Dosage 2002 00:00:[address] [facility] Polio (IPV/OPV) 2002 00:00:[address] [facility] DTAP 2002 00:00:[address] [facility] HIB 4 Dose Schedule 2002 00:00:[address] [facility] Hep B, Adol or Pedi Dosage 2002 00:00:[address] [facility] HIB 4 Dose Schedule 2002 00:00:[address] [facility] Polio (IPV/OPV) 2002 00:00:[address] [facility] DTAP 2002 00:00:[address] [facility] HIB 4 Dose Schedule 2002 00:00:[address] [facility] Hep B, Adol or Pedi Dosage 2002 00:00:[address] [facility] Polio (IPV/OPV) 2002 00:00:[address] [facility] DTAP 2002 00:00:[address] [facility] Hep B, Adol or Pedi Dosage 2002 00:00:[address] [facility] HIB 4 Dose Schedule 2002 00:00:[address] [facility] Hep B, Adol or Pedi Dosage 2002 00:00:[address] [facility] Polio (IPV/OPV) 2002 00:00:[address] [facility] DTAP 2002 00:00:[address] [facility] HIB 4 Dose Schedule 2002 00:00:[address] [facility] Polio (IPV/OPV) 2002 00:00:[address] [facility] Hep B, Adol or Pedi Dosage 2002 00:00:[address] [facility] Polio (IPV/OPV) 2002 00:00:[address] [facility] DTAP 2002 00:00:[address] [facility] HIB 4 Dose Schedule 2002 00:00:[address] [facility] Hep B, Adol or Pedi Dosage 2002 00:00:[address] [facility] Polio (IPV/OPV) 2002 00:00:[address] [facility] DTAP 2002 00:00:[address] [facility] HIB 4 Dose Schedule 2002 00:00:[address] [facility] Hep B, Adol or Pedi Dosage 2002 00:00:[address] [facility] Polio (IPV/OPV) 2002 00:00:[address] [facility] DTAP 2002 00:00:[address] [facility] HIB 4 Dose Schedule 2002 00:00:[address] [facility] Hep B, Adol or Pedi Dosage 2002 00:00:[address] [facility] Polio (IPV/OPV) 2002 00:00:[address] [facility] DTAP 2002 00:00:[address] [facility] HIB 4 Dose Schedule 2002 00:00:[address] [facility] Hep B, Adol or Pedi Dosage 2002 00:00:[address] [facility] Polio (IPV/OPV) 2002 00:00:[address] [facility] DTAP 2002 00:00:[address] [facility] HIB 4 Dose Schedule 2002 00:00:[address] [facility] Hep B, Adol or Pedi Dosage 2002 00:00:[address] [facility] Polio (IPV/OPV) 2002 00:00:[address] [facility] DTAP 2002 00:00:[address] [facility] HIB 4 Dose Schedule 2002 00:00:[address] [facility] Hep B, Adol or Pedi Dosage 2002 00:00:[address] [facility] Polio (IPV/OPV) 2002 00:00:[address] [facility] DTAP 2002 00:00:[address] [facility] HIB 4 Dose Schedule 2002 00:00:[address] [facility] Hep B, Adol or Pedi Dosage 2002 00:00:[address] [facility] Polio (IPV/OPV) 2002 00:00:[address] [facility] DTAP 2002 00:00:[address] [facility] DTAP 2002 00:00:[address] [facility] HIB 4 Dose Schedule 2002 00:00:[address] [facility] Hep B, Adol or Pedi Dosage 2002 00:00:[address] [facility] Polio (IPV/OPV) 2002 00:00:[address] [facility] HIB 4 Dose Schedule 2002 00:00:[address] [facility] DTAP 2002 00:00:[address] [facility] HIB 4 Dose Schedule 2002 00:00:[address] [facility] Hep B, Adol or Pedi Dosage 2002 00:00:[address] [facility] Polio (IPV/OPV) 2002 00:00:[address] [facility] DTAP 2002 00:00:[address] [facility] HIB 4 Dose Schedule 2002 00:00:[address] [facility] Hep B, Adol or Pedi Dosage 2002 00:00:[address] [facility] Hep B, Adol or Pedi Dosage 2002 00:00:[address] [facility] Hep B, Adol or Pedi Dosage 2002 00:00:[address] [facility] Hep B, Adol or Pedi Dosage 2002 00:00:[address] [facility] Hep B, Adol or Pedi Dosage 2002 00:00:[address] [facility] Hep B, Adol or Pedi Dosage 2002 00:00:[address] [facility] Hep B, Adol or Pedi Dosage 2002 00:00:[address] [facility] Hep B, Adol or Pedi Dosage 2002 00:00:[address] [facility] Hep B, Adol or Pedi Dosage 2002 00:00:[address] [facility] Hep B, Adol or Pedi Dosage 2002 00:00:[address] [facility] Hep B, Adol or Pedi Dosage 2002 00:00:[address] [facility] Hep B, Adol or Pedi Dosage 2002 00:00:[address] [facility] Hep B, Adol or Pedi Dosage 2002 00:00:[address] [facility] Hep B, Adol or Pedi Dosage 2002 00:00:[address] [facility] Hep B, Adol or Pedi Dosage 2002 00:00:[address] [facility] Hep B, Adol or Pedi Dosage 2002 00:00:[address] [facility] Hep B, Adol or Pedi Dosage 2002 00:00:[address] [facility] Hep B, Adol or Pedi Dosage 2002 00:00:[address] [facility] Hep B, Adol or Pedi Dosage 2002 00:00:[address] [facility] Hep B, Adol or Pedi Dosage 2002 00:00:[address] [facility] Hep B, Adol or Pedi Dosage 2002 00:00:[address] [facility] Hep B, Adol or Pedi Dosage 2002 00:00:[address] [facility] Hep B, Adol or Pedi Dosage 2002 00:00:[address] [facility] Hep B, Adol or Pedi Dosage 2002 00:00:[address] [facility] Hep B, Adol or Pedi Dosage 2002 00:00:[address] [facility] Hep B, Adol or Pedi Dosage 2002 00:00:[address] [facility] Hep B, Adol or Pedi Dosage 2002 00:00:[address] [facility] Hep B, Adol or Pedi Dosage 2002 00:00:[address] [facility] Hep B, Adol or Pedi Dosage 2002 00:00:[address] [facility] Hep B, Adol or Pedi Dosage 2002 00:00:[address] [facility] Hep B, Adol or Pedi Dosage 2002 00:00:[address] [facility] Hep B, Adol or Pedi Dosage 2002 00:00:[address] [facility] Hep B, Adol or Pedi Dosage 2002 00:00:[address] [facility] Hep B, Adol or Pedi Dosage 2002 00:00:[address] [facility] Hep B, Adol or Pedi Dosage 2002 00:00:[address] [facility] Hep B, Adol or Pedi Dosage 2002 00:00:[address] [facility] Hep B, Adol or Pedi Dosage 2002 00:00:[address] [facility] Hep B, Adol or Pedi Dosage 2002 00:00:[address] [facility] Hep B, Adol or Pedi Dosage 2002 00:00:[address] [facility] Hep B, Adol or Pedi Dosage 2002 00:00:[address] [facility] Hep B, Adol or Pedi Dosage 2002 00:00:[address] [facility] Hep B, Adol or Pedi Dosage 2002 00:00:[address] [facility] Hep B, Adol or Pedi Dosage 2002 00:00:[address] [facility] Hep B, Adol or Pedi Dosage 2002 00:00:[address] [facility] Hep B, Adol or Pedi Dosage 2002 00:00:[address] [facility] Hep B, Adol or Pedi Dosage 2002 00:00:[address] [facility] Hep B, Adol or Pedi Dosage 2002 00:00:[address] [facility] Hep B, Adol or Pedi Dosage 2002 00:00:[address] [facility] Hep B, Adol or Pedi Dosage 2002 00:00:[address] [facility] Hep B, Adol or Pedi Dosage 2002 00:00:[address] [facility] Hep B, Adol or Pedi Dosage 2002 00:00:[address] [facility] Hep B, Adol or Pedi Dosage 2002 00:00:[address] [facility] Hep B, Adol or Pedi Dosage 2002 00:00:[address] [facility] Hep B, Adol or Pedi Dosage 2002 00:00:[address] [facility] Hep B, Adol or Pedi Dosage 2002 00:00:[address] [facility] Hep B, Adol or Pedi Dosage 2002 00:00:[address] [facility] Hep B, Adol or Pedi Dosage 2002 00:00:[address] [facility] Hep B, Adol or Pedi Dosage 2002 00:00:[address] [facility] Hep B, Adol or Pedi Dosage 2002 00:00:[address] [facility] Hep B, Adol or Pedi Dosage 2002 00:00:[address] [facility] Hep B, Adol or Pedi Dosage 2002 00:00:[address] [facility] Hep B, Adol or Pedi Dosage 2002 00:00:[address] [facility] Hep B, Adol or Pedi Dosage 2002 00:00:[address] [facility] Hep B, Adol or Pedi Dosage 2002 00:00:[address] [facility] Hep B, Adol or Pedi Dosage 2002 00:00:[address] [facility] Hep B, Adol or Pedi Dosage 2002 00:00:[address] [facility] Hep B, Adol or Pedi Dosage 2002 00:00:[address] [facility] Hep B, Adol or Pedi Dosage 2002 00:00:[address] [facility] Hep B, Adol or Pedi Dosage 2002 00:00:[address] [facility] Hep B, Adol or Pedi Dosage 2002 00:00:[address] [facility] Hep B, Adol or Pedi Dosage 2002 00:00:[address] [facility] Hep B, Adol or Pedi Dosage 2002 00:00:[address] [facility] Hep B, Adol or Pedi Dosage 2002 00:00:[address] [facility] Hep B, Adol or Pedi Dosage 2002 00:00:[address] [facility] Hep B, Adol or Pedi Dosage 2002 00:00:[address] [facility] Hep B, Adol or Pedi Dosage 2002 00:00:[address] [facility] Hep B, Adol or Pedi Dosage 2002 00:00:[address] [facility] Hep B, Adol or Pedi Dosage 2002 00:00:[address] [facility] Hep B, Adol or Pedi Dosage 2002 00:00:[address] [facility] Hep B, Adol or Pedi Dosage 2002 00:00:[address] [facility] Hep B, Adol or Pedi Dosage 2002 00:00:[address] [facility] Hep B, Adol or Pedi Dosage 2002 00:00:[address] [facility] Hep B, Adol or Pedi Dosage 2002 00:00:[address] [facility] Hep B, Adol or Pedi Dosage 2002 00:00:[address] [facility] Hep B, Adol or Pedi Dosage 2002 00:00:[address] [facility] Hep B, Adol or Pedi Dosage 2002 00:00:[address] [facility] Hep B, Adol or Pedi Dosage 2002 00:00:[address] [facility] Hep B, Adol or Pedi Dosage 2002 00:00:[address] [facility] Hep B, Adol or Pedi Dosage 2002 00:00:[address] [facility] Hep B, Adol or Pedi Dosage 2002 00:00:[address] [facility] Hep B, Adol or Pedi Dosage 2002 00:00:[address] [facility] Hep B, Adol or Pedi Dosage 2002 00:00:[address] [facility] Hep B, Adol or Pedi Dosage 2002 00:00:[address] [facility] Hep B, Adol or Pedi Dosage 2002 00:00:[address] [facility] Hep B, Adol or Pedi Dosage 2002 00:00:[address] [facility] Hep B, Adol or Pedi Dosage 2002 00:00:[address] [facility] Hep B, Adol or Pedi Dosage 2002 00:00:[address] [facility] Hep B, Adol or Pedi Dosage 2002 00:00:[address] [facility] Hep B, Adol or Pedi Dosage 2002 00:00:[address] [facility] Hep B, Adol or Pedi Dosage 2002 00:00:[address] [facility] Hep B, Adol or Pedi Dosage 2002 00:00:[address] [facility] Hep B, Adol or Pedi Dosage 2002 00:00:[address] [facility] Hep B, Adol or Pedi Dosage 2002 00:00:[address] [facility] HPV Unknown Completed [facility] HPV Unknown Completed [facility] HPV Unknown Completed [facility] DTAP Unknown Completed [facility] DTAP Unknown Completed [facility] DTAP Unknown Completed [facility] DTAP Unknown Completed [facility] HIB 4 [facility]ose Schedule Unknown Completed [facility] HIB 4 Dose Schedule Unknown Completed [facility] HIB 4 Dose Schedule Unknown Completed [facility] HIB 4 Dose Schedule Unknown Completed [facility] HEPATITIS A Unknown Completed [facility] HEPATITIS A Unknown Completed [facility] Hep B, Adol or Pedi Dosage Unknown Completed [facility] Hep B, Adol or Pedi Dosage Unknown Completed [facility] Hep B, Adol or Pedi Dosage Unknown Completed [facility] Meningococcal Polysaccharide (groups A, C, Y and W-135) conjugate vaccine (MCV4P) Unknown Completed [facility] MMR Unknown Completed [facility] Polio (IPV/OPV) Unknown Completed [facility] Polio (IPV/OPV) Unknown Completed [facility] Polio (IPV/OPV) Unknown Completed [facility] Polio (IPV/OPV) Unknown Completed [facility] TDAP Unknown Completed [facility] Varicella (varivax)(chicken pox) Unknown Completed [facility] Varicella (varivax)(chicken pox) Unknown Completed [facility] DTAP Unknown Completed [facility] MMR Unknown Completed [facility] Pneumococcal 7 Conjugate, PCV7 (Prevnar7) Unknown Completed [facility] Pneumococcal 7 Conjugate, PCV7 (Prevnar7) Unknown Completed [facility] Influenza Virus Vaccine Quad .5 mL IM 6+ MO (FLUZONE/FLULAVAL/FL UARIX) Unknown Completed [facility] Meningococcal Polysaccharide (groups A, C, Y and W-135) conjugate vaccine (MCV4P) Unknown Completed [facility] Meningococcal B, Recombinant Unknown Completed [facility] Meningococcal B, OMV Unknown Completed [facility] SARS-COV-2 COVID-19 PFIZER VACCINE Unknown Completed [facility] SARS-COV-2 COVID-19 PFIZER VACCINE Unknown Completed [facility] HPV Unknown Completed [facility] HPV Unknown Completed [facility] HPV Unknown Completed [facility] DTAP Unknown [facility]pleted [facility] DTAP Unknown Completed [facility] DTAP Unknown Completed [facility] DTAP Unknown Completed [facility] HIB 4 Dose Schedule Unknown Completed [facility] HIB 4 Dose Schedule Unknown Completed [facility] HIB 4 Dose Schedule Unknown Completed [facility] HIB 4 Dose Schedule Unknown Completed [facility] HEPATITIS A Unknown Completed [facility] HEPATITIS A Unknown Completed [facility] Hep B, Adol or Pedi Dosage Unknown Completed [facility] Hep B, Adol or Pedi Dosage Unknown Completed [facility] Hep B, Adol or Pedi Dosage Unknown Completed [facility] Meningococcal Polysaccharide (groups A, C, Y and W-135) conjugate vaccine (MCV4P) Unknown Completed [facility] MMR Unknown Completed [facility] Polio (IPV/OPV) Unknown Completed [facility] Polio (IPV/OPV) Unknown Completed [facility] Polio (IPV/OPV) Unknown Completed [facility] Polio (IPV/OPV) Unknown Completed [facility] TDAP Unknown Completed [facility] Varicella (varivax)(chicken pox) Unknown Completed [facility] Varicella (varivax)(chicken pox) Unknown Completed [facility] DTAP Unknown Completed [facility] MMR Unknown Completed [facility] Pneumococcal 7 Conjugate, PCV7 (Prevnar7) Unknown Completed [facility] Pneumococcal 7 Conjugate, PCV7 (Prevnar7) Unknown Completed [facility] Influenza Virus Vaccine Quad .5 mL IM 6+ MO (FLUZONE/FLULAVAL/FL UARIX) Unknown Completed [facility] Meningococcal Polysaccharide (groups A, C, Y and W-135) conjugate vaccine (MCV4P) Unknown Completed [facility] Meningococcal B, Recombinant Unknown Completed [facility] Meningococcal B, OMV Unknown Completed [facility] SARS-COV-2 COVID-19 PFIZER VACCINE Unknown Completed [facility] SARS-COV-2 COVID-19 PFIZER VACCINE Unknown Completed [facility] HPV Unknown Completed [facility] HPV Unknown Completed [facility] HPV Unknown Completed [facility] DTAP Unknown Completed [facility] DTAP Unknown [facility]pleted [facility] DTAP Unknown Completed [facility] DTAP Unknown Completed [facility] HIB 4 Dose Schedule Unknown Completed [facility] HIB 4 Dose Schedule Unknown Completed [facility] HIB 4 Dose Schedule Unknown Completed [facility] HIB 4 Dose Schedule Unknown Completed [facility] HEPATITIS A Unknown Completed [facility] HEPATITIS A Unknown Completed [facility] Hep B, Adol or Pedi Dosage Unknown Completed [facility] Hep B, Adol or Pedi Dosage Unknown Completed [facility] Hep B, Adol or Pedi Dosage Unknown Completed [facility] Meningococcal Polysaccharide (groups A, C, Y and W-135) conjugate vaccine (MCV4P) Unknown Completed [facility] MMR Unknown Completed [facility] Polio (IPV/OPV) Unknown Completed [facility] Polio (IPV/OPV) Unknown Completed [facility] Polio (IPV/OPV) Unknown Completed [facility] Polio (IPV/OPV) Unknown Completed [facility] TDAP Unknown Completed [facility] Varicella (varivax)(chicken pox) Unknown Completed [facility] Varicella (varivax)(chicken pox) Unknown Completed [facility] DTAP Unknown Completed [facility] MMR Unknown Completed [facility] Pneumococcal 7 Conjugate, PCV7 (Prevnar7) Unknown Completed [facility] Pneumococcal 7 Conjugate, PCV7 (Prevnar7) Unknown Completed [facility] Influenza Virus Vaccine Quad .5 mL IM 6+ MO (FLUZONE/FLULAVAL/FL UARIX) Unknown Completed [facility] Meningococcal Polysaccharide (groups A, C, Y and W-135) conjugate vaccine (MCV4P) Unknown Completed [facility] Meningococcal B, Recombinant Unknown Completed [facility] Meningococcal B, OMV Unknown Completed [facility] SARS-COV-2 COVID-19 PFIZER VACCINE Unknown Completed [facility] SARS-COV-2 COVID-19 PFIZER VACCINE Unknown Completed [facility] HPV Unknown Completed [facility] HPV Unknown Completed [facility] HPV Unknown Completed [facility] DTAP Unknown [facility]pleted [facility] DTAP Unknown [facility]pleted [facility] DTAP Unknown Completed [facility] DTAP Unknown Completed [facility] HIB 4 Dose Schedule Unknown Completed [facility] HIB 4 Dose Schedule Unknown Completed [facility] HIB 4 Dose Schedule Unknown Completed [facility] HIB 4 Dose Schedule Unknown Completed [facility] HEPATITIS A Unknown Completed [facility] HEPATITIS A Unknown Completed [facility] Hep B, Adol or Pedi Dosage Unknown Completed [facility] Hep B, Adol or Pedi Dosage Unknown Completed [facility] Hep B, Adol or Pedi Dosage Unknown Completed [facility] Meningococcal Polysaccharide (groups A, C, Y and W-135) conjugate vaccine (MCV4P) Unknown Completed [facility] MMR Unknown Completed [facility] Polio (IPV/OPV) Unknown Completed [facility] Polio (IPV/OPV) Unknown Completed [facility] Polio (IPV/OPV) Unknown Completed [facility] Polio (IPV/OPV) Unknown Completed [facility] TDAP Unknown Completed [facility] Varicella (varivax)(chicken pox) Unknown Completed [facility] Varicella (varivax)(chicken pox) Unknown Completed [facility] DTAP Unknown Completed [facility] MMR Unknown Completed [facility] Pneumococcal 7 Conjugate, PCV7 (Prevnar7) Unknown Completed [facility] Pneumococcal 7 Conjugate, PCV7 (Prevnar7) Unknown Completed [facility] Influenza Virus Vaccine Quad .5 mL IM 6+ MO (FLUZONE/FLULAVAL/FL UARIX) Unknown Completed [facility] Meningococcal Polysaccharide (groups A, C, Y and W-135) conjugate vaccine (MCV4P) Unknown Completed [facility] Meningococcal B, Recombinant Unknown Completed [facility] Meningococcal B, OMV Unknown Completed [facility] SARS-COV-2 COVID-19 PFIZER VACCINE Unknown Completed [facility] SARS-COV-2 COVID-19 PFIZER VACCINE Unknown Completed [facility] HPV Unknown Completed [facility] HPV Unknown Completed [facility] HPV Unknown Completed [facility] DTAP Unknown [facility]pleted [facility] DTAP Unknown [facility]pleted [facility] DTAP Unknown Completed [facility] DTAP Unknown Completed [facility] HIB 4 Dose Schedule Unknown Completed [facility] HIB 4 Dose Schedule Unknown Completed [facility] HIB 4 Dose Schedule Unknown Completed [facility] HIB 4 Dose Schedule Unknown Completed [facility] HEPATITIS A Unknown Completed [facility] HEPATITIS A Unknown Completed [facility] Hep B, Adol or Pedi Dosage Unknown Completed [facility] Hep B, Adol or Pedi Dosage Unknown Completed [facility] Hep B, Adol or Pedi Dosage Unknown Completed [facility] Meningococcal Polysaccharide (groups A, C, Y and W-135) conjugate vaccine (MCV4P) Unknown Completed [facility] MMR Unknown Completed [facility] Polio (IPV/OPV) Unknown Completed [facility] Polio (IPV/OPV) Unknown Completed [facility] Polio (IPV/OPV) Unknown Completed [facility] Polio (IPV/OPV) Unknown Completed [facility] TDAP Unknown Completed [facility] Varicella (varivax)(chicken pox) Unknown Completed [facility] Varicella (varivax)(chicken pox) Unknown Completed [facility] DTAP Unknown Completed [facility] MMR Unknown Completed [facility] Pneumococcal 7 Conjugate, PCV7 (Prevnar7) Unknown Completed [facility] Pneumococcal 7 Conjugate, PCV7 (Prevnar7) Unknown Completed [facility] Influenza Virus Vaccine Quad .5 mL IM 6+ MO (FLUZONE/FLULAVAL/FL UARIX) Unknown Completed [facility] Meningococcal Polysaccharide (groups A, C, Y and W-135) conjugate vaccine (MCV4P) Unknown Completed [facility] Meningococcal B, Recombinant Unknown Completed [facility] Meningococcal B, OMV Unknown Completed [facility] SARS-COV-2 COVID-19 PFIZER VACCINE Unknown Completed [facility] SARS-COV-2 COVID-19 PFIZER VACCINE Unknown Completed [facility] Influenza Virus Vaccine Quad IM, Preserv and ABX Free 6 MO-64 YRS (FLUCELVAX) Unknown Completed [facility] HPV Unknown Completed [facility] HPV Unknown Completed [facility] HPV Unknown Completed [facility] DTAP Unknown [facility]pleted [facility] DTAP Unknown [facility]pleted [facility] DTAP Unknown Completed [facility] DTAP Unknown Completed [facility] HIB 4 Dose Schedule Unknown Completed [facility] HIB 4 Dose Schedule Unknown Completed [facility] HIB 4 Dose Schedule Unknown Completed [facility] HIB 4 Dose Schedule Unknown Completed [facility] HEPATITIS A Unknown Completed [facility] HEPATITIS A Unknown Completed [facility] Hep B, Adol or Pedi Dosage Unknown Completed [facility] Hep B, Adol or Pedi Dosage Unknown Completed [facility] Hep B, Adol or Pedi Dosage Unknown Completed [facility] Meningococcal Polysaccharide (groups A, C, Y and W-135) conjugate vaccine (MCV4P) Unknown Completed [facility] MMR Unknown Completed [facility] Polio (IPV/OPV) Unknown Completed [facility] Polio (IPV/OPV) Unknown Completed [facility] Polio (IPV/OPV) Unknown Completed [facility] Polio (IPV/OPV) Unknown Completed [facility] TDAP Unknown Completed [facility] Varicella (varivax)(chicken pox) Unknown Completed [facility] Varicella (varivax)(chicken pox) Unknown Completed [facility] DTAP Unknown Completed [facility] MMR Unknown Completed [facility] Pneumococcal 7 Conjugate, PCV7 (Prevnar7) Unknown Completed [facility] Pneumococcal 7 Conjugate, PCV7 (Prevnar7) Unknown Completed [facility] Influenza Virus Vaccine Quad .5 mL IM 6+ MO (FLUZONE/FLULAVAL/FL UARIX) Unknown Completed [facility] Meningococcal Polysaccharide (groups A, C, Y and W-135) conjugate vaccine (MCV4P) Unknown Completed [facility] Meningococcal B, Recombinant Unknown Completed [facility] Meningococcal B, OMV Unknown Completed [facility] SARS-COV-2 COVID-19 PFIZER VACCINE Unknown Completed [facility] SARS-COV-2 COVID-19 PFIZER VACCINE Unknown Completed [facility] Influenza Virus Vaccine Quad IM, Preserv and ABX Free 6 MO-64 YRS (FLUCELVAX) Unknown Completed [facility] HPV Unknown Completed [facility] HPV Unknown Completed [facility] HPV Unknown Completed [facility] DTAP Unknown [facility]pleted [facility] DTAP Unknown [facility]pleted [facility] DTAP Unknown Completed [facility] DTAP Unknown Completed [facility] HIB 4 Dose Schedule Unknown Completed [facility] HIB 4 Dose Schedule Unknown Completed [facility] HIB 4 Dose Schedule Unknown Completed [facility] HIB 4 Dose Schedule Unknown Completed [facility] HEPATITIS A Unknown Completed [facility] HEPATITIS A Unknown Completed [facility] Hep B, Adol or Pedi Dosage Unknown Completed [facility] Hep B, Adol or Pedi Dosage Unknown Completed [facility] Hep B, Adol or Pedi Dosage Unknown Completed [facility] Meningococcal Polysaccharide (groups A, C, Y and W-135) conjugate vaccine (MCV4P) Unknown Completed [facility] MMR Unknown Completed [facility] Polio (IPV/OPV) Unknown Completed [facility] Polio (IPV/OPV) Unknown Completed [facility] Polio (IPV/OPV) Unknown Completed [facility] Polio (IPV/OPV) Unknown Completed [facility] TDAP Unknown Completed [facility] Varicella (varivax)(chicken pox) Unknown Completed [facility] Varicella (varivax)(chicken pox) Unknown Completed [facility] DTAP Unknown Completed [facility] MMR Unknown Completed [facility] Pneumococcal 7 Conjugate, PCV7 (Prevnar7) Unknown Completed [facility] Pneumococcal 7 Conjugate, PCV7 (Prevnar7) Unknown Completed [facility] Influenza Virus Vaccine Quad .5 mL IM 6+ MO (FLUZONE/FLULAVAL/FL UARIX) Unknown Completed [facility] Meningococcal Polysaccharide (groups A, C, Y and W-135) conjugate vaccine (MCV4P) Unknown Completed [facility] Meningococcal B, Recombinant Unknown Completed [facility] Meningococcal B, OMV Unknown Completed [facility] SARS-COV-2 COVID-19 PFIZER VACCINE Unknown Completed [facility] SARS-COV-2 COVID-19 PFIZER VACCINE Unknown Completed [facility] Influenza Virus Vaccine Quad IM, Preserv and ABX Free 6 MO-64 YRS (FLUCELVAX) Unknown Completed [facility] HPV Unknown Completed [facility] HPV Unknown Completed [facility] HPV Unknown Completed [facility] DTAP Unknown [facility]pleted [facility] DTAP Unknown [facility]pleted [facility] DTAP Unknown Completed [facility] DTAP Unknown Completed [facility] HIB 4 Dose Schedule Unknown Completed [facility] HIB 4 Dose Schedule Unknown Completed [facility] HIB 4 Dose Schedule Unknown Completed [facility] HIB 4 Dose Schedule Unknown Completed [facility] HEPATITIS A Unknown Completed [facility] HEPATITIS A Unknown Completed [facility] Hep B, Adol or Pedi Dosage Unknown Completed [facility] Hep B, Adol or Pedi Dosage Unknown Completed [facility] Hep B, Adol or Pedi Dosage Unknown Completed [facility] Meningococcal Polysaccharide (groups A, C, Y and W-135) conjugate vaccine (MCV4P) Unknown Completed [facility] MMR Unknown Completed [facility] Polio (IPV/OPV) Unknown Completed [facility] Polio (IPV/OPV) Unknown Completed [facility] Polio (IPV/OPV) Unknown Completed [facility] Polio (IPV/OPV) Unknown Completed [facility] TDAP Unknown Completed [facility] Varicella (varivax)(chicken pox) Unknown Completed [facility] Varicella (varivax)(chicken pox) Unknown Completed [facility] DTAP Unknown Completed [facility] MMR Unknown Completed [facility] Pneumococcal 7 Conjugate, PCV7 (Prevnar7) Unknown Completed [facility] Pneumococcal 7 Conjugate, PCV7 (Prevnar7) Unknown Completed [facility] Influenza Virus Vaccine Quad .5 mL IM 6+ MO (FLUZONE/FLULAVAL/FL UARIX) Unknown Completed [facility] Meningococcal Polysaccharide (groups A, C, Y and W-135) conjugate vaccine (MCV4P) Unknown Completed [facility] Meningococcal B, Recombinant Unknown Completed [facility] Meningococcal B, OMV Unknown Completed [facility] SARS-COV-2 COVID-19 PFIZER VACCINE Unknown Completed [facility] SARS-COV-2 COVID-19 PFIZER VACCINE Unknown Completed [facility] Influenza Virus Vaccine Quad IM, Preserv and ABX Free 6 MO-64 YRS (FLUCELVAX) Unknown Completed [facility] HPV Unknown Completed [facility] HPV Unknown Completed [facility] HPV Unknown Completed [facility] DTAP Unknown [facility]pleted [facility] DTAP Unknown [facility]pleted [facility] DTAP Unknown Completed [facility] DTAP Unknown Completed [facility] HIB 4 Dose Schedule Unknown Completed [facility] HIB 4 Dose Schedule Unknown Completed [facility] HIB 4 Dose Schedule Unknown Completed [facility] HIB 4 Dose Schedule Unknown Completed [facility] HEPATITIS A Unknown Completed [facility] HEPATITIS A Unknown Completed [facility] Hep B, Adol or Pedi Dosage Unknown Completed [facility] Hep B, Adol or Pedi Dosage Unknown Completed [facility] Hep B, Adol or Pedi Dosage Unknown Completed [facility] Meningococcal Polysaccharide (groups A, C, Y and W-135) conjugate vaccine (MCV4P) Unknown Completed [facility] MMR Unknown Completed [facility] Polio (IPV/OPV) Unknown Completed [facility] Polio (IPV/OPV) Unknown Completed [facility] Polio (IPV/OPV) Unknown Completed [facility] Polio (IPV/OPV) Unknown Completed [facility] TDAP Unknown Completed [facility] Varicella (varivax)(chicken pox) Unknown Completed [facility] Varicella (varivax)(chicken pox) Unknown Completed [facility] DTAP Unknown Completed [facility] MMR Unknown Completed [facility] Pneumococcal 7 Conjugate, PCV7 (Prevnar7) Unknown Completed [facility] Pneumococcal 7 Conjugate, PCV7 (Prevnar7) Unknown Completed [facility] Influenza Virus Vaccine Quad .5 mL IM 6+ MO (FLUZONE/FLULAVAL/FL UARIX) Unknown Completed [facility] Meningococcal Polysaccharide (groups A, C, Y and W-135) conjugate vaccine (MCV4P) Unknown Completed [facility] Meningococcal B, Recombinant Unknown Completed [facility] Meningococcal B, OMV Unknown Completed [facility] SARS-COV-2 COVID-19 PFIZER VACCINE Unknown Completed [facility] SARS-COV-2 COVID-19 PFIZER VACCINE Unknown Completed [facility] Influenza Virus Vaccine Quad IM, Preserv and ABX Free 6 MO-64 YRS (FLUCELVAX) Unknown Completed [facility] HPV Unknown Completed [facility] HPV Unknown Completed [facility] HPV Unknown Completed [facility] DTAP Unknown [facility]pleted [facility] DTAP Unknown [facility]pleted [facility] DTAP Unknown Completed [facility] DTAP Unknown Completed [facility] HIB 4 Dose Schedule Unknown Completed [facility] HIB 4 Dose Schedule Unknown Completed [facility] HIB 4 Dose Schedule Unknown Completed [facility] HIB 4 Dose Schedule Unknown Completed [facility] HEPATITIS A Unknown Completed [facility] HEPATITIS A Unknown Completed [facility] Hep B, Adol or Pedi Dosage Unknown Completed [facility] Hep B, Adol or Pedi Dosage Unknown Completed [facility] Hep B, Adol or Pedi Dosage Unknown Completed [facility] Meningococcal Polysaccharide (groups A, C, Y and W-135) conjugate vaccine (MCV4P) Unknown Completed [facility] MMR Unknown Completed [facility] Polio (IPV/OPV) Unknown Completed [facility] Polio (IPV/OPV) Unknown Completed [facility] Polio (IPV/OPV) Unknown Completed [facility] Polio (IPV/OPV) Unknown Completed [facility] TDAP Unknown Completed [facility] Varicella (varivax)(chicken pox) Unknown Completed [facility] Varicella (varivax)(chicken pox) Unknown Completed [facility] DTAP Unknown Completed [facility] MMR Unknown Completed [facility] Pneumococcal 7 Conjugate, PCV7 (Prevnar7) Unknown Completed [facility] Pneumococcal 7 Conjugate, PCV7 (Prevnar7) Unknown Completed [facility] Influenza Virus Vaccine Quad .5 mL IM 6+ MO (FLUZONE/FLULAVAL/FL UARIX) Unknown Completed [facility] Meningococcal Polysaccharide (groups A, C, Y and W-135) conjugate vaccine (MCV4P) Unknown Completed [facility] Meningococcal B, Recombinant Unknown Completed [facility] Meningococcal B, OMV Unknown Completed [facility] SARS-COV-2 COVID-19 PFIZER VACCINE Unknown Completed [facility] SARS-COV-2 COVID-19 PFIZER VACCINE Unknown Completed [facility] Influenza Virus Vaccine Quad IM, Preserv and ABX Free 6 MO-64 YRS (FLUCELVAX) Unknown Completed [facility] HPV Unknown Completed [facility] HPV Unknown Completed [facility] HPV Unknown Completed [facility] DTAP Unknown [facility]pleted [facility] DTAP Unknown [facility]pleted [facility] DTAP Unknown Completed [facility] DTAP Unknown Completed [facility] HIB 4 Dose Schedule Unknown Completed [facility] HIB 4 Dose Schedule Unknown Completed [facility] HIB 4 Dose Schedule Unknown Completed [facility] HIB 4 Dose Schedule Unknown Completed [facility] HEPATITIS A Unknown Completed [facility] HEPATITIS A Unknown Completed [facility] Hep B, Adol or Pedi Dosage Unknown Completed [facility] Hep B, Adol or Pedi Dosage Unknown Completed [facility] Hep B, Adol or Pedi Dosage Unknown Completed [facility] Meningococcal Polysaccharide (groups A, C, Y and W-135) conjugate vaccine (MCV4P) Unknown Completed [facility] MMR Unknown Completed [facility] Polio (IPV/OPV) Unknown Completed [facility] Polio (IPV/OPV) Unknown Completed [facility] Polio (IPV/OPV[facility]) [facility] TDAP Unknown Completed [facility] Varicella (varivax)(chicken pox) Unknown Completed [facility] Varicella (varivax)(chicken pox) Unknown Completed [facility] DTAP Unknown Completed [facility] MMR Unknown Completed [facility] Pneumococcal 7 Conjugate, PCV7 (Prevnar7) Unknown Completed [facility] Pneumococcal 7 Conjugate, PCV7 (Prevnar7) Unknown Completed [facility] Influenza Virus Vaccine Quad .5 mL IM 6+ MO (FLUZONE/FLULAVAL/FL UARIX) Unknown Completed [facility] Meningococcal Polysaccharide (groups A, C, Y and W-135) conjugate vaccine (MCV4P) Unknown Completed [facility] Meningococcal B, Recombinant Unknown Completed [facility] Meningococcal B, OMV Unknown Completed [facility] SARS-COV-2 COVID-19 PFIZER VACCINE Unknown Completed [facility] SARS-COV-2 COVID-19 PFIZER VACCINE Unknown Completed [facility] Influenza Virus Vaccine Quad IM, Preserv and ABX Free 6 MO-64 YRS (FLUCELVAX) Unknown Completed [facility] HPV Unknown Completed [facility] HPV Unknown Completed [facility] HPV Unknown Completed [facility] DTAP Unknown [facility]pleted [facility] DTAP Unknown [facility]pleted [facility] DTAP Unknown Completed [facility] DTAP Unknown Completed [facility] HIB 4 Dose Schedule Unknown Completed [facility] HIB 4 Dose Schedule Unknown Completed [facility] HIB 4 Dose Schedule Unknown Completed [facility] HIB 4 Dose Schedule Unknown Completed [facility] HEPATITIS A Unknown Completed [facility] HEPATITIS A Unknown Completed [facility] Hep B, Adol or Pedi Dosage Unknown Completed [facility] Hep B, Adol or Pedi Dosage Unknown Completed [facility] Hep B, Adol or Pedi Dosage Unknown Completed [facility] Meningococcal Polysaccharide (groups A, C, Y and W-135) conjugate vaccine (MCV4P) Unknown Completed [facility] MMR Unknown Completed [facility] Polio (IPV/OPV) Unknown [facility] Polio (IPV/OPV) Unknown [facility] Pol[facility] (IPV/OPV) Unknown Completed [facility] TDAP Unknown Completed [facility] Varicella (varivax)(chicken pox) Unknown Completed [facility] Varicella (varivax)(chicken pox) Unknown Completed [facility] DTAP Unknown Completed [facility] MMR Unknown Completed [facility] Pneumococcal 7 Conjugate, PCV7 (Prevnar7) Unknown Completed [facility] Pneumococcal 7 Conjugate, PCV7 (Prevnar7) Unknown Completed [facility] Influenza Virus Vaccine Quad .5 mL IM 6+ MO (FLUZONE/FLULAVAL/FL UARIX) Unknown Completed [facility] Meningococcal Polysaccharide (groups A, C, Y and W-135) conjugate vaccine (MCV4P) Unknown Completed [facility] Meningococcal B, Recombinant Unknown Completed [facility] Meningococcal B, OMV Unknown Completed [facility] SARS-COV-2 COVID-19 PFIZER VACCINE Unknown Completed [facility] SARS-COV-2 COVID-19 PFIZER VACCINE Unknown Completed [facility] Influenza Virus Vaccine Quad IM, Preserv and ABX Free 6 MO-64 YRS (FLUCELVAX) Unknown Completed [facility] HPV Unknown Completed [facility] HPV Unknown Completed [facility] HPV Unknown Completed [facility] DTAP Unknown [facility]pleted [facility] DTAP Unknown [facility]pleted [facility] DTAP Unknown Completed [facility] DTAP Unknown Completed [facility] HIB 4 Dose Schedule Unknown Completed [facility] HIB 4 Dose Schedule Unknown Completed [facility] HIB 4 Dose Schedule Unknown Completed [facility] HIB 4 Dose Schedule Unknown Completed [facility] HEPATITIS A Unknown Completed [facility] HEPATITIS A Unknown Completed [facility] Hep B, Adol or Pedi Dosage Unknown Completed [facility] Hep B, Adol or Pedi Dosage Unknown Completed [facility] Hep B, Adol or Pedi Dosage Unknown Completed [facility] Meningococcal Polysaccharide (groups A, C, Y and W-135) conjugate vaccine (MCV4P) Unknown Completed [facility] MMR Unknown Completed [facility] Polio (IPV/OPV) Unknown Completed [facility] Polio (IPV/OPV) Unknown Completed [facility] Polio (IPV/OPV) Unknown Completed [facility] Polio (IPV/OPV) Unknown Completed [facility] TDAP Unknown Completed [facility] Varicella (varivax)(chicken pox) Unknown Completed [facility] Varicella (varivax)(chicken pox) Unknown Completed [facility] DTAP Unknown Completed [facility] MMR Unknown Completed [facility] Pneumococcal 7 Conjugate, PCV7 (Prevnar7) Unknown Completed [facility] Pneumococcal 7 Conjugate, PCV7 (Prevnar7) Unknown Completed [facility] Influenza Virus Vaccine Quad .5 mL IM 6+ MO (FLUZONE/FLULAVAL/FL UARIX) Unknown Completed [facility] Meningococcal Polysaccharide (groups A, C, Y and W-135) conjugate vaccine (MCV4P) Unknown Completed [facility] Meningococcal B, Recombinant Unknown Completed [facility] Meningococcal B, OMV Unknown Completed [facility] SARS-COV-2 COVID-19 PFIZER VACCINE Unknown Completed [facility] SARS-COV-2 COVID-19 PFIZER VACCINE Unknown Completed [facility] Influenza Virus Vaccine Quad IM, Preserv and ABX Free 6 MO-64 YRS (FLUCELVAX) Unknown Completed [facility] HPV Unknown Completed [facility] HPV Unknown Completed [facility] HPV Unknown Completed [facility] DTAP Unknown [facility]pleted [facility] DTAP Unknown [facility]pleted [facility] DTAP Unknown Completed [facility] DTAP Unknown Completed [facility] HIB 4 Dose Schedule Unknown Completed [facility] HIB 4 Dose Schedule Unknown Completed [facility] HIB 4 Dose Schedule Unknown Completed [facility] HIB 4 Dose Schedule Unknown Completed [facility] HEPATITIS A Unknown Completed [facility] HEPATITIS A Unknown Completed [facility] Hep B, Adol or Pedi Dosage Unknown Completed [facility] Hep B, Adol or Pedi Dosage Unknown Completed [facility] Hep B, Adol or Pedi Dosage Unknown Completed [facility] Meningococcal Polysaccharide (groups A, C, Y and W-135) conjugate vaccine (MCV4P) Unknown Completed [facility] MMR Unknown Completed [facility] Polio (IPV/OPV) Unknown Completed [facility] Polio (IPV/OPV) Unknown Completed [facility] Polio (IPV/OPV) Unknown Completed [facility] Polio (IPV/OPV) Unknown Completed [facility] TDAP Unknown Completed [facility] Varicella (varivax)(chicken pox) Unknown Completed [facility] Varicella (varivax)(chicken pox) Unknown Completed [facility] DTAP Unknown Completed [facility] MMR Unknown Completed [facility] Pneumococcal 7 Conjugate, PCV7 (Prevnar7) Unknown Completed [facility] Pneumococcal 7 Conjugate, PCV7 (Prevnar7) Unknown Completed [facility] Influenza Virus Vaccine Quad .5 mL IM 6+ MO (FLUZONE/FLULAVAL/FL UARIX) Unknown Completed [facility] Meningococcal Polysaccharide (groups A, C, Y and W-135) conjugate vaccine (MCV4P) Unknown Completed [facility] Meningococcal B, Recombinant Unknown Completed [facility] Meningococcal B, OMV Unknown Completed [facility] SARS-COV-2 COVID-19 PFIZER VACCINE Unknown Completed [facility] SARS-COV-2 COVID-19 PFIZER VACCINE Unknown Completed [facility] Influenza Virus Vaccine Quad IM, Preserv and ABX Free 6 MO-64 YRS (FLUCELVAX) Unknown Completed [facility] HPV Unknown Completed [facility] HPV Unknown Completed [facility] HPV Unknown Completed [facility] DTAP Unknown [facility]pleted [facility] DTAP Unknown [facility]pleted [facility] DTAP Unknown Completed [facility] DTAP Unknown Completed [facility] HIB 4 Dose Schedule Unknown Completed [facility] HIB 4 Dose Schedule Unknown Completed [facility] HIB 4 Dose Schedule Unknown Completed [facility] HIB 4 Dose Schedule Unknown Completed [facility] HEPATITIS A Unknown Completed [facility] HEPATITIS A Unknown Completed [facility] Hep B, Adol or Pedi Dosage Unknown Completed [facility] Hep B, Adol or Pedi Dosage Unknown Completed [facility] Hep B, Adol or Pedi Dosage Unknown Completed [facility] Meningococcal Polysaccharide (groups A, C, Y and W-135) conjugate vaccine (MCV4P) Unknown Completed [facility] MMR Unknown Completed [facility] Polio (IPV/OPV) Unknown Completed [facility] Polio (IPV/OPV) Unknown Completed [facility] Polio (IPV/OPV) Unknown Completed [facility] Polio (IPV/OPV) Unknown Completed [facility] TDAP Unknown Completed [facility] Varicella (varivax)(chicken pox) Unknown Completed [facility] Varicella (varivax)(chicken pox) Unknown Completed [facility] DTAP Unknown Completed [facility] MMR Unknown Completed [facility] Pneumococcal 7 Conjugate, PCV7 (Prevnar7) Unknown Completed [facility] Pneumococcal 7 Conjugate, PCV7 (Prevnar7) Unknown Completed [facility] Influenza Virus Vaccine Quad .5 mL IM 6+ MO (FLUZONE/FLULAVAL/FL UARIX) Unknown Completed [facility] Meningococcal Polysaccharide (groups A, C, Y and W-135) conjugate vaccine (MCV4P) Unknown Completed [facility] Meningococcal B, Recombinant Unknown Completed [facility] Meningococcal B, OMV Unknown Completed [facility] SARS-COV-2 COVID-19 PFIZER VACCINE Unknown Completed [facility] SARS-COV-2 COVID-19 PFIZER VACCINE Unknown Completed [facility] Influenza Virus Vaccine Quad IM, Preserv and ABX Free 6 MO-64 YRS (FLUCELVAX) Unknown Completed [facility] HPV Unknown Completed [facility] HPV Unknown Completed [facility] HPV Unknown Completed [facility] DTAP Unknown [facility]pleted [facility] DTAP Unknown [facility]pleted [facility] DTAP Unknown Completed [facility] DTAP Unknown Completed [facility] HIB 4 Dose Schedule Unknown Completed [facility] HIB 4 Dose Schedule Unknown Completed [facility] HIB 4 Dose Schedule Unknown Completed [facility] HIB 4 Dose Schedule Unknown Completed [facility] HEPATITIS A Unknown Completed [facility] HEPATITIS A Unknown Completed [facility] Hep B, Adol or Pedi Dosage Unknown Completed [facility] Hep B, Adol or Pedi Dosage Unknown Completed [facility] Hep B, Adol or Pedi Dosage Unknown Completed [facility] Meningococcal Polysaccharide (groups A, C, Y and W-135) conjugate vaccine (MCV4P) Unknown Completed [facility] MMR Unknown Completed [facility] Polio (IPV/OPV) Unknown Completed [facility] Polio (IPV/OPV) Unknown Completed [facility] Polio (IPV/OPV) Unknown Completed [facility] Polio (IPV/OPV) Unknown Completed [facility] TDAP Unknown Completed [facility] Varicella (varivax)(chicken pox) Unknown Completed [facility] Varicella (varivax)(chicken pox) Unknown Completed [facility] DTAP Unknown Completed [facility] MMR Unknown Completed [facility] Pneumococcal 7 Conjugate, PCV7 (Prevnar7) Unknown Completed [facility] Pneumococcal 7 Conjugate, PCV7 (Prevnar7) Unknown Completed [facility] Influenza Virus Vaccine Quad .5 mL IM 6+ MO (FLUZONE/FLULAVAL/FL UARIX) Unknown Completed [facility] Meningococcal Polysaccharide (groups A, C, Y and W-135) conjugate vaccine (MCV4P) Unknown Completed [facility] Meningococcal B, Recombinant Unknown Completed [facility] Meningococcal B, OMV Unknown Completed [facility] SARS-COV-2 COVID-19 PFIZER VACCINE Unknown Completed [facility] SARS-COV-2 COVID-19 PFIZER VACCINE Unknown Completed [facility] Influenza Virus Vaccine Quad IM, Preserv and ABX Free 6 MO-64 YRS (FLUCELVAX) Unknown Completed [facility] HPV Unknown Completed [facility] HPV Unknown Completed [facility] HPV Unknown Completed [facility] DTAP Unknown [facility]pleted [facility] DTAP Unknown [facility]pleted [facility] DTAP Unknown Completed [facility] DTAP Unknown Completed [facility] HIB 4 Dose Schedule Unknown Completed [facility] HIB 4 Dose Schedule Unknown Completed [facility] HIB 4 Dose Schedule Unknown Completed [facility] HIB 4 Dose Schedule Unknown Completed [facility] HEPATITIS A Unknown Completed [facility] HEPATITIS A Unknown Completed [facility] Hep B, Adol or Pedi Dosage Unknown Completed [facility] Hep B, Adol or Pedi Dosage Unknown Completed [facility] Hep B, Adol or Pedi Dosage Unknown Completed [facility] Meningococcal Polysaccharide (groups A, C, Y and W-135) conjugate vaccine (MCV4P) Unknown Completed [facility] MMR Unknown Completed [facility] Polio (IPV/OPV) Unknown Completed [facility] Polio (IPV/OPV) Unknown Completed [facility] Polio (IPV/OPV) Unknown Completed [facility] Polio (IPV/OPV) Unknown Completed [facility] TDAP Unknown Completed [facility] Varicella (varivax)(chicken pox) Unknown Completed [facility] Varicella (varivax)(chicken pox) Unknown Completed [facility] DTAP Unknown Completed [facility] MMR Unknown Completed [facility] Pneumococcal 7 Conjugate, PCV7 (Prevnar7) Unknown Completed [facility] Pneumococcal 7 Conjugate, PCV7 (Prevnar7) Unknown Completed [facility] Influenza Virus Vaccine Quad .5 mL IM 6+ MO (FLUZONE/FLULAVAL/FL UARIX) Unknown Completed [facility] Meningococcal Polysaccharide (groups A, C, Y and W-135) conjugate vaccine (MCV4P) Unknown Completed [facility] Meningococcal B, Recombinant Unknown Completed [facility] Meningococcal B, OMV Unknown Completed [facility] SARS-COV-2 COVID-19 PFIZER VACCINE Unknown Completed [facility] SARS-COV-2 COVID-19 PFIZER VACCINE Unknown Completed [facility] Influenza Virus Vaccine Quad IM, Preserv and ABX Free 6 MO-64 YRS (FLUCELVAX) Unknown Completed [facility] HPV Unknown Completed [facility] HPV Unknown Completed [facility] HPV Unknown Completed [facility] DTAP Unknown [facility]pleted [facility] DTAP Unknown [facility]pleted [facility] DTAP Unknown Completed [facility] DTAP Unknown Completed [facility] HIB 4 Dose Schedule Unknown Completed [facility] HIB 4 Dose Schedule Unknown Completed [facility] HIB 4 Dose Schedule Unknown Completed [facility] HIB 4 Dose Schedule Unknown Completed [facility] HEPATITIS A Unknown Completed [facility] HEPATITIS A Unknown Completed [facility] Hep B, Adol or Pedi Dosage Unknown Completed [facility] Hep B, Adol or Pedi Dosage Unknown Completed [facility] Hep B, Adol or Pedi Dosage Unknown Completed [facility] Meningococcal Polysaccharide (groups A, C, Y and W-135) conjugate vaccine (MCV4P) Unknown Completed [facility] MMR Unknown Completed [facility] Polio (IPV/OPV) Unknown Completed [facility] Polio (IPV/OPV) Unknown Completed [facility] Polio (IPV/OPV) Unknown Completed [facility] Polio (IPV/OPV) Unknown Completed [facility] TDAP Unknown Completed [facility] Varicella (varivax)(chicken pox) Unknown Completed [facility] Varicella (varivax)(chicken pox) Unknown Completed [facility] DTAP Unknown Completed [facility] MMR Unknown Completed [facility] Pneumococcal 7 Conjugate, PCV7 (Prevnar7) Unknown Completed [facility] Pneumococcal 7 Conjugate, PCV7 (Prevnar7) Unknown Completed [facility] Influenza Virus Vaccine Quad .5 mL IM 6+ MO (FLUZONE/FLULAVAL/FL UARIX) Unknown Completed [facility] Meningococcal Polysaccharide (groups A, C, Y and W-135) conjugate vaccine (MCV4P) Unknown Completed [facility] Meningococcal B, Recombinant Unknown Completed [facility] Meningococcal B, OMV Unknown Completed [facility] SARS-COV-2 COVID-19 PFIZER VACCINE Unknown Completed [facility] SARS-COV-2 COVID-19 PFIZER VACCINE Unknown Completed [facility] Influenza Virus Vaccine Quad IM, Preserv and ABX Free 6 MO-64 YRS (FLUCELVAX) Unknown Completed [facility] Vital Signs Vital Name Observation Time Observation Value Comments S ource Systolic blood pressure 2023-06-04 19:00:00 117 mm[Hg] [facility] Diastolic blood pressure 2023-06-04 19:00:00 59 mm[Hg] [facility] Heart rate 2023-06-04 19:00:00 74 /min [facility] Respiratory rate 2023-06-04 19:00:00 20 /min [facility] Oxygen saturation in Arterial blood by Pulse oximetry 2023-06-04 19:00:00 100 /min [facility] Body temperature 2023-06-04 15:22:[address] [facility] Body weight 2023-06-04 15:20:00 88.451 kg [facility] BMI 2023-06-04 15:20:00 34.54 kg/m2 [facility] Systolic blood pressure 2023-06-04 13:57:00 116 mm[Hg] [facility] Diastolic blood pressure 2023-06-04 13:57:00 74 mm[Hg] [facility] Heart rate 2023-06-04 13:57:00 75 /min [facility] Body temperature 2023-06-04 13:57:[address] [facility] Respiratory rate 2023-06-04 13:57:00 18 /min [facility] Body height 2023-06-04 13:57:00 160 cm [facility] Body weight 2023-06-04 13:57:00 88.633 kg [facility] BMI 2023-06-04 13:57:00 34.61 kg/m2 [facility] Systolic blood pressure 2023-05-16 23:23:49 118 mm[Hg] [facility] Diastolic blood pressure 2023-05-16 23:23:49 60 mm[Hg] [facility] Heart rate 2023-05-16 23:23:49 80 /min [facility] Respiratory rate 2023-05-16 23:23:49 16 /min [facility] Oxygen saturation in Arterial blood by Pulse oximetry 2023-05-16 23:23:49 99 /min [facility] Body height 2023-05-16 21:54:00 160 cm [facility] Body weight 2023-05-16 21:54:00 87.544 kg [facility] BMI 2023-05-16 21:54:00 34.19 kg/m2 [facility] Body temperature 2023-05-16 21:54:[address] [facility] Systolic blood pressure 2023-05-07 16:02:00 131 mm[Hg] [facility] Diastolic blood pressure 2023-05-07 16:02:00 72 mm[Hg] [facility] Heart rate 2023-05-07 16:02:00 79 /min [facility] Body temperature 2023-05-07 16:02:[address] [facility] Body height 2023-05-07 16:02:00 160 cm [facility] Body weight 2023-05-07 16:02:00 88.089 kg [facility] BMI 2023-05-07 16:02:00 34.40 kg/m2 [facility] Systolic blood pressure 2023-04-23 20:49:00 128 mm[Hg] [facility] Diastolic blood pressure 2023-04-23 20:49:00 88 mm[Hg] [facility] Heart rate 2023-04-23 20:49:00 105 /min [facility] Body temperature 2023-04-23 20:49:[address] [facility] Body height 2023-04-23 20:49:00 160 cm [facility] Body weight 2023-04-23 20:49:00 87.635 kg [facility] BMI 2023-04-23 20:49:00 34.22 kg/m2 [facility] Systolic blood pressure 2022-11-13 14:04:00 134 mm[Hg] [facility] Diastolic blood pressure 2022-11-13 14:04:00 76 mm[Hg] [facility] Heart rate 2022-11-13 14:04:00 76 /min [facility] Body temperature 2022-11-13 14:04:[address] [facility] Body height 2022-11-13 14:04:00 160 cm [facility] Body weight 2022-11-13 14:04:00 82.283 kg [facility] BMI 2022-11-13 14:04:00 32.13 kg/m2 [facility] Systolic blood pressure 2022-10-28 14:04:00 123 mm[Hg] [facility] Diastolic blood pressure 2022-10-28 14:04:00 83 mm[Hg] [facility] Heart rate 2022-10-28 14:04:00 68 /min [facility] Body temperature 2022-10-28 14:04:[address] [facility] Respiratory rate 2022-10-28 14:04:00 18 /min [facility] Body height 2022-10-28 14:04:00 160 cm [facility] Body weight 2022-10-28 14:04:00 82.101 kg [facility] BMI 2022-10-28 14:04:00 32.06 kg/m2 [facility] Systolic blood pressure 2022-08-11 16:19:00 110 mm[Hg] [facility] Diastolic blood pressure 2022-08-11 16:19:00 77 mm[Hg] [facility] Heart rate 2022-08-11 16:19:00 89 /min [facility] Body temperature 2022-08-11 16:19:[address] [facility] Respiratory rate 2022-08-11 16:19:00 20 /min [facility] Body height 2022-08-11 16:19:00 160 cm [facility] Body weight 2022-08-11 16:19:00 78.075 kg [facility] BMI 2022-08-11 16:19:00 30.49 kg/m2 [facility] Oxygen saturation in Arterial blood by Pulse oximetry 2022-08-11 16:19:00 98 /min [facility] Systolic blood pressure 2022-05-27 20:21:00 121 mm[Hg] [facility] Diastolic blood pressure 2022-05-27 20:21:00 69 mm[Hg] [facility] Heart rate 2022-05-27 20:21:00 72 /min [facility] 2022-05-27 20:21:[address] [facility] Respiratory rate 2022-05-27 20:21:00 17 /min [facility] Body height 2022-05-27 20:21:00 157.5 cm [facility] Body weight 2022-05-27 20:21:00 84.55 kg [facility] 2022-05-27 20:21:00 34.09 kg/m2 [facility] Systolic blood pressure 2022-02-05 19:09:00 137 mm[Hg] [place] [facility] Diastolic blood pressure 2022-02-05 19:09:00 79 mm[Hg] [facility] Heart rate 2022-02-05 19:09:00 94 /min [facility] Body temperature 2022-02-05 19:09:[address] [facility] Respiratory rate 2022-02-05 19:09:00 18 /min [facility] Body height 2022-02-05 19:09:00 157.5 cm [facility] Body weight 2022-02-05 19:09:00 84.732 kg [facility] BMI 2022-02-05 19:09:00 34.17 kg/m2 [facility] Systolic blood pressure 2022-01-31 15:02:00 122 mm[Hg] [facility] Diastolic blood pressure 2022-01-31 15:02:00 77 mm[Hg] [facility] Heart rate 2022-01-31 15:02:00 67 /min [facility] Body temperature 2022-01-31 15:02:[address] [facility] Body height 2022-01-31 15:02:00 157.5 cm [facility] Body weight 2022-01-31 15:02:00 82.555 kg [facility] 2022-01-31 15:02:00 33.29 kg/m2 [facility] Systolic blood pressure 2022-01-02 14:12:00 109 mm[Hg] [facility] Diastolic blood pressure 2022-01-02 14:12:00 67 mm[Hg] [facility] Heart rate 2022-01-02 14:12:00 58 /min [facility] Body temperature 2022-01-02 14:12:[address] [facility] Respiratory rate 2022-01-02 14:12:00 18 /min [facility] Body height 2022-01-02 14:12:00 157.5 cm [facility] Body weight 2022-01-02 14:12:00 80.74 kg [facility] BMI 2022-01-02 14:12:00 32.56 kg/m2 [facility] Systolic blood pressure 2021-01-06 02:00:00 149 mm[Hg] [facility] Diastolic blood pressure 2021-01-06 02:00:00 97 mm[Hg] [facility] Heart rate 2021-01-06 02:00:00 101 /min [facility] Respiratory rate 2021-01-06 02:00:00 17 /min [facility] Oxygen saturation in Arterial blood by Pulse oximetry 2021-01-06 02:00:00 100 /min [facility] Body temperature 2021-01-06 01:46:[address] [facility] Body height 2021-01-06 01:46:00 157.5 cm [facility] Body weight 2021-01-06 01:46:00 81.647 kg [facility] BMI 2021-01-06 01:46:00 32.92 kg/m2 [facility] Body mass index (BMI) [Percentile] Per age and sex 2021-01-06 01:46:00 96.57 % [facility] Systolic blood pressure 2020-04-02 17:35:00 116 mm[Hg] [facility] Diastolic blood pressure 2020-04-02 17:35:00 72 mm[Hg] [facility] Heart rate 2020-04-02 16:53:00 73 /min [facility] Body temperature 2020-04-02 16:53:[address] [facility] Respiratory rate 2020-04-02 16:53:00 18 /min [facility] Body height 2020-04-02 16:53:00 159 cm [facility] Body weight 2020-04-02 16:53:00 82.101 kg [facility] BMI 2020-04-02 16:53:00 32.48 kg/m2 [facility] Oxygen saturation in Arterial blood by Pulse oximetry 2020-04-02 16:53:00 98 /min [facility] Systolic blood pressure 2020-04-02 17:35:00 116 mm[Hg] [facility] Diastolic blood pressure 2020-04-02 17:35:00 72 mm[Hg] [facility] Heart rate 2020-04-02 16:53:00 73 /min [facility] Body temperature 2020-04-02 16:53:00 36.44 [facility] Respiratory rate 2020-04-02 16:53:00 18 /min [facility] Body height 2020-04-02 16:53:00 159 cm [facility] Body weight 2020-04-02 16:53:00 82.101 kg [facility] BMI 2020-04-02 16:53:00 32.48 kg/m2 [facility] Oxygen saturation in Arterial blood by Pulse oximetry 2020-04-02 16:53:00 98 /min [facility] Systolic blood pressure 2020-02-24 19:17:00 121 mm[Hg] [facility] Diastolic blood pressure 2020-02-24 19:17:00 77 mm[Hg] [facility] Heart rate 2020-02-24 19:16:00 84 /min [facility] Body temperature 2020-02-24 19:16:[address] [facility] Respiratory rate 2020-02-24 19:16:00 18 /min [facility] Body weight 2020-02-24 19:16:00 83.598 kg [facility] Oxygen saturation in Arterial blood by Pulse oximetry 2020-02-24 19:16:00 100 /min [facility] Systolic blood pressure 2020-01-30 21:13:00 123 mm[Hg] [facility] Diastolic blood pressure 2020-01-30 21:13:00 70 mm[Hg] [facility] Heart rate 2020-01-30 21:13:00 83 /min [facility] Body temperature 2020-01-30 21:13:[address] [facility] Respiratory rate 2020-01-30 21:13:00 18 /min [facility] Body height 2020-01-30 21:13:00 157.5 cm [facility] Body weight 2020-01-30 21:13:00 85.276 kg [facility] BMI 2020-01-30 21:13:00 34.39 kg/m2 [facility] Systolic blood pressure 2020-01-10 20:41:00 129 mm[Hg] [facility] Diastolic blood pressure 2020-01-10 20:41:00 72 mm[Hg] [facility] Heart rate 2020-01-10 20:41:00 98 /min [facility] 2020-01-10 20:41:[address] [facility] Respiratory rate 2020-01-10 20:41:00 18 /min [facility] Body height 2020-01-10 20:41:00 157.5 cm [facility] weight 2020-01-10 20:41:00 85.276 kg [facility] BMI 2020-01-10 20:41:00 34.39 kg/m2 [facility] Body temperature 2019-10-12 19:39:[address] [facility] Body height 2019-10-12 19:39:00 159 cm [facility] Body weight 2019-10-12 19:39:00 82.6 kg [facility] BMI 2019-10-12 19:39:00 32.67 kg/m2 [facility] Systolic blood pressure 2019-10-07 18:10:00 121 mm[Hg] [facility] Diastolic blood pressure 2019-10-07 18:10:00 79 mm[Hg] [facility] Heart rate 2019-10-07 18:10:00 77 /min [facility] Body temperature 2019-10-07 18:10:[address] [facility] Respiratory rate 2019-10-07 18:10:00 18 /min [facility] Body height 2019-10-07 18:10:00 157.5 cm [facility] Body weight 2019-10-07 18:10:00 81.647 kg [facility] BMI 2019-10-07 18:10:00 32.92 kg/m2 [facility] Systolic blood pressure 2019-10-06 20:18:00 123 mm[Hg] [facility] Diastolic blood pressure 2019-10-06 20:18:00 86 mm[Hg] [facility] Heart rate 2019-10-06 20:18:00 96 /min [facility] Body temperature 2019-10-06 20:18:[address] [facility] Respiratory rate 2019-10-06 20:18:00 16 /min [facility] Body height 2019-10-06 20:18:00 157.5 cm [facility] Body weight 2019-10-06 20:18:00 80.786 kg [facility] BMI 2019-10-06 20:18:00 32.57 kg/m2 [facility] Oxygen saturation in Arterial blood by Pulse oximetry 2019-10-06 20:18:00 98 /min [facility] Systolic blood pressure 2019-08-04 18:52:00 129 mm[Hg] [facility] Diastolic blood pressure 2019-08-04 18:52:00 78 mm[Hg] [facility] Heart rate 2019-08-04 18:52:00 86 /min [facility] Body temperature 2019-08-04 18:52:[address] [facility] Respiratory rate 2019-08-04 18:52:00 18 /min [facility] Body height 2019-08-04 18:52:00 157.5 cm [facility] Body weight 2019-08-04 18:52:00 84.369 kg [facility] BMI 2019-08-04 18:52:00 34.02 kg/m2 [facility] Systolic blood pressure 2019-05-23 21:28:00 121 mm[Hg] [facility] Diastolic blood pressure 2019-05-23 21:28:00 77 mm[Hg] [facility] Heart rate 2019-05-23 21:28:00 80 /min [facility] Body temperature 2019-05-23 21:28:[address] [facility] Respiratory rate 2019-05-23 21:28:00 18 /min [facility] Body height 2019-05-23 21:28:00 158.5 cm [facility] Body weight 2019-05-23 21:28:00 85.095 kg [facility] BMI 2019-05-23 21:28:00 33.87 kg/m2 [facility] Oxygen saturation in Arterial blood by Pulse oximetry 2019-05-23 21:28:00 100 /min [facility] Systolic blood pressure 2019-05-16 21:51:00 123 mm[Hg] [facility] Diastolic blood pressure 2019-05-16 21:51:00 73 mm[Hg] [facility] Heart rate 2019-05-16 21:51:00 72 /min [facility] Body temperature 2019-05-16 21:51:[address] [facility] Respiratory rate 2019-05-16 21:51:00 18 /min [facility] Body height 2019-05-16 21:51:00 157.5 cm [facility] Body weight 2019-05-16 21:51:00 85.276 kg [facility] BMI 2019-05-16 21:51:00 34.39 kg/m2 [facility] Body temperature 2019-05-03 20:09:[address] [facility] Body height 2019-05-03 20:09:00 157.5 cm [facility] Body weight 2019-05-03 20:09:00 82.2 kg [facility] BMI 2019-05-03 20:09:00 33.14 kg/m2 [facility] Body temperature 2019-03-22 21:03:[address] [facility] Body weight 2019-03-22 21:03:00 83.4 kg [facility] Systolic blood pressure 2018-11-12 13:21:00 120 mm[Hg] [facility] Diastolic blood pressure 2018-11-12 13:21:00 78 mm[Hg] [facility] Heart rate 2018-11-12 13:21:00 72 [facility] Body temperature 2018-11-12 13:21:[address] [facility] Respiratory rate 2018-11-12 13:21:00 18 /min [facility] Body weight 2018-11-12 13:21:00 76.023 kg [facility] BMI 2018-11-12 13:21:00 29.69 kg/m2 [facility] Systolic blood pressure 2018-11-11 13:42:00 123 mm[Hg] [facility] Diastolic blood pressure 2018-11-11 13:42:00 81 mm[Hg] [facility] Heart rate 2018-11-11 13:42:00 64 /min [facility] Body temperature 2018-11-11 13:42:[address] [facility] Respiratory rate 2018-11-11 13:42:00 18 /min [facility] Body height 2018-11-11 13:42:00 160 cm [facility] Body weight 2018-11-11 13:42:00 75.297 kg [facility] BMI 2018-11-11 13:42:00 29.41 kg/m2 [facility] Systolic blood pressure 2018-10-07 20:01:00 123 mm[Hg] [facility] Diastolic blood pressure 2018-10-07 20:01:00 80 mm[Hg] [facility] Heart rate 2018-10-07 20:01:00 97 /min [facility] Body temperature 2018-10-07 20:01:[address] [facility] Respiratory rate 2018-10-07 20:01:00 16 /min [facility] Body height 2018-10-07 20:01:00 158.7 cm [facility] Body weight 2018-10-07 20:01:00 74.844 kg [facility] BMI 2018-10-07 20:01:00 29.72 kg/m2 [facility] Oxygen saturation in Arterial blood by Pulse oximetry 2018-10-07 20:01:00 99 /min [place] [facility] Procedures Procedure Date / Time Performed Performing Clinician Source URINALYSIS 2023-06-04 16:22:[address] [facility] MAGNESIUM 2023-06-04 15:29:00 Canelo [facility] COMP. METABOLIC PANEL ([id number]) 2023-06-04 15:29:[address] [facility] TOTAL BETA HCG ASSAY 2023-06-04 15:29:00 Canelo [facility] CBC WITH DIFF 2023-06-04 15:29:00 Canelo [facility] PAP SMEAR-LIQUID BASED-CP 2023-06-04 14:29:[address] [facility] POCT URINALYSIS W/O SPECIFIC GRAVITY 2023-06-04 00:00:[address] [facility] ASSIGNMENT OF BENEFITS 2023-05-16 23:10:54 Doctor Unassigned, [place] [facility] FIRST TRIMESTER LESS THAN 14 WEEKS 2023-05-16 22:58:[address] [facility] CONSENT/REFUSAL FOR DIAGNOSI S AND TREATMENT 2023-05-16 21:38:19 Doctor Unassigned, [place] [facility] OB TRANSVAGINAL 2023-05-08 03:14:[address] [facility] FLU VACC ([id number]), 6 MO-6 4 YRS, .5ML, IM, QUAD (FLUCELVAX) 2023-05-07 16:43:[address] [facility] TRIAGE SPECIALIST CLINIC ULTRASOUND 2023-05-07 06:01:00 Doctor Unassigned, [place] [facility] POCT URINALYSIS W/O SPECIFIC GRAVITY 2023-05-07 00:00:[address] [facility] US OB TRANSVAGINAL 2023-04-23 23:35:[address] [facility] ASSIGNMENT OF BENEFITS 2023-04-23 20:27:38 Doctor Unassigned, [place] [facility] POCT TEST 2023-04-23 00:00:00 Richard Alexandria Holland [facility] POCT URINALYSIS W/O SPECIFIC GRAVITY 2023-04-23 00:00:00 Richard Alexandria Holland [facility] BI ULTRASOUND BREAST COMPLET E RIGHT 2022-11-12 16:39:[address] [facility] POCT MOLECULAR STREP 2022-08-11 16:25:00 Unknown, Attending [facility] POCT URINALYSIS W/O SPECIFIC GRAVITY 2022-05-27 20:36:00 Rolan Casarez [facility] PATIENT FINANCIAL POLICY 2022-05-27 20:07:26 Doctor Unassigned, [place] [facility] BI ULTRASOUND BREAST COMPLET E BILATERAL 2022-02-21 19:23:[address] [facility] US PELVIS COMPLETE WITH TRANSVAGINAL 2022-02-21 17:55:[address] [facility] DISCLOSURE AND CONSENT, MEDICAL AND SURGICAL PROCEDURES 2022-01-31 06:01:00 Doctor Unassigned, [place] [facility] POCT TEST 2022-01-31 00:00:[address] [facility] ASSIGNMENT OF BENEFITS 2022-01-02 14:07:23 Doctor Unassigned, [place] [facility] POCT TEST 2021-01-06 02:44:[address] [facility] URINALYSIS 2021-01-06 02:34:[address] [facility] URINE DRUG ([id number]) - COMPREHENSIVE DRUG SCREEN W/O REFLEX 2021-01-06 02:34:[address] [facility] LACTIC ACID WHOLE BLOOD 2021-01-06 02:23:[address] [facility] COMP. METABOLIC PANEL ([id number]) 2021-01-06 02:03:[address] [facility] ETHANOL 2021-01-06 02:03:[address] [facility] CBC WITH DIFF 2021-01-06 02:03:[address] [facility] MENINGOCOCCAL B VACCINE, OMV , 2 DOSE, IM 2020-04-16 16:43:[address] [facility] POCT RAPID STREP SCREEN FOR GROUP A 2020-02-24 19:24:[address] [facility] EXTERNAL PROVIDER RECORDS 2019-10-13 05:01:00 Doctor Unassigned, [place] [facility] PEDI ELECTROENCEPHALOGRAM 2019-10-12 00:00:[address] [facility] DISCLOSURE AND CONSENT, MEDICAL AND SURGICAL PROCEDURES 2019-10-07 05:01:00 Doctor Unassigned, [place] [facility] AUTHORIZATION TO RELEASE PHI TO [facility] 2019-10-06 05:01:00 Doctor Unassigned, [place] [facility] BI ULTRASOUND BREAST LIMITED LEFT 2019-08-16 13:29:[address] [facility] CONSENT FOR CONTRACEPTION 2019-08-04 05:01:00 Doctor Unassigned, [place] [facility] POCT TEST 2019-08-04 00:00:[address] [facility] POCT URINALYSIS W/O SPECIFIC GRAVITY 2019-08-04 00:00:[address] [facility] AGREEMENTS AUTHORIZATIONS AN D IRREVOCABLE ASSIGNMENTS (FORM 2001) 2019-06-16 05:01:00 Doctor Unassigned, [place] [facility] CONSENT/REFUSAL FOR DIAGNOSI S AND TREATMENT 2019-05-03 19:11:33 Doctor Unassigned, [place] [facility] URINE CULTURE 2019-03-22 21:53:[address] [facility] CONSENT FOR DEPO-PROVERA 2018-11-11 05:01:00 Doctor Unassigned, [place] [facility] MENINGOCOCCAL B VACCINE(TRUMENBA) 2 OR 3 DOSE SERIES, IM 2018-10-07 20:59:[address] [facility] MENACTRA (MCV4-D) VACCINE 2018-10-07 20:59:[address] [facility] Encounters Start Date/Time End Date/Time Encounter Type Admission Type Attending [facility] Facility Care Department Encounter ID Source 2021-01-22 07:20:19 Emergency [facility] [id number] [facility] 2023-07-06 11:00:00 2023-07-06 11:00:00 Outpatient R ALEXANDRIA WHITMORE [facility] [id number] [facility] 2023-06-24 00:00:00 2023-06-24 00:00:00 Telephone Alexandria Whitmore [place] [id number] 350.1.13.10 4.2.7.2.686 [id number] 134 [id number] [facility] 2023-06-17 00:00:00 2023-06-17 00:00:00 Telephone Alexandria Whitmore [facility] 1.2.840.114 350.1.13.10 4.2.7.2.686 [id number] 134 [id number] [facility] 2023-06-17 00:00:00 2023-06-17 00:00:00 Patient Secure Msg Doctor Unassigned, [place] [facility] 1.2.840.114 350.1.13.10 4.2.7.2.686 [id number] 134 [id number] [facility] 2023-06-15 09:00:00 2023-06-15 09:00:00 Outpatient EMILIE AZAR DIOSELY [facility] [id number] [facility] 2023-06-05 08:15:00 2023-06-05 08:30:00 Instructor Looping Visit 2, Adc Lab Alexandria Whitmore [facility] 1.2.840.114 350.1.13.10 4.2.7.2.686 [id number] [facility] 2023-06-05 08:15:00 2023-06-05 08:15:00 [facility] [id number] [facility] 2023-06-04 10:23:00 2023-06-04 14:08:00 Emergency X CANELO JESSE [facility] ERT [id number] [facility] 2023-06-04 10:23:00 2023-06-04 14:08:00 Emergency Canelo Jesse [facility] 1.2.840.114 350.1.13.10 4.2.7.2.686 [id number] [facility] 2023-06-04 10:00:00 2023-06-04 10:15:00 Instructor Looping Visit 2, Adc Lab Alexandria Whitmore [facility] 1.2.840.114 350.1.13.10 4.2.7.2.686 [id number] [facility] 2023-06-04 09:00:00 2023-06-04 09:36:23 Outpatient R ALEXANDRIA WHITMORE [facility] [id number] [facility] 2023-06-04 09:00:00 2023-06-04 09:36:23 [facility] 1.2.840.114 350.1.13.10 4.2.7.2.686 [id number] 134 [id number] [facility] 2023-05-16 15:57:00 2023-05-16 17:26:00 Emergency X GUI ALY [facility] ERT [id number] [facility] 2023-05-16 15:57:00 2023-05-16 17:26:00 Emergency Bassem ElbertGui Hatch [facility] 1.2.840.114 350.1.13.10 4.2.7.2.686 [id number] [facility] 2023-05-07 10:00:00 2023-05-07 11:00:16 Outpatient R ALEXANDRIA WHITMORE [facility] [id number] [facility] 2023-05-07 10:00:00 2023-05-07 11:00:16 Office Visit Alexandria Whitmore [facility] 1.2.840.114 350.1.13.10 4.2.7.2.686 [id number] [facility] 2023-05-07 00:00:00 2023-05-07 00:00:00 Letter (Out) Alexandria Whitmore [facility] 1.2.840.114 350.1.13.10 4.2.7.2.686 [id number] 134 [id number] [facility] 2023-05-07 00:00:00 2023-05-07 00:00:00 Orders Only Doctor Unassigned, [place] [facility] 1.2840.114 350.1.13.10 4.2.7.2.686 [id number] [facility] 2023-05-04 00:00:00 2023-05-04 00:00:00 Telephone Alexandria Whitmore [facility] 1.2.840.114 350.1.13.10 4.2.7.2.686 [id number] 134 [id number] [facility] 2023-04-23 14:30:00 2023-04-23 15:15:09 Outpatient R ALEXANDRIA WHITMORE [facility] [id number] [facility] 2023-04-23 14:30:00 2023-04-23 15:15:09 Office Visit Alexandria Whitmore [facility] NICOLE FORDIO [facility] 1.114 350.1.13.10 4.2.7.2.686 [id number] 134 [id number] [facility] 2023-04-23 00:00:00 2023-04-23 00:00:00 Orders Only Doctor Unassigned, [place] [facility] 1..114 350.1.13.10 4.2.7.2.686 [id number] [facility] 2023-04-08 14:00:00 2023-04-08 14:00:00 Outpatient R ALEXANDRIA WHITMORE [facility] [id number] [facility] 2023-01-05 08:30:00 2023-01-05 08:30:00 Outpatient ROLAN PALOMINO [facility] [id number] [facility] 2022-12-02 10:00:00 2022-12-02 12:30:57 Outpatient MILAN PATEL [facility] [id number] Roro mackenzie [facility] 2022-12-02 10:00:00 2022-12-02 12:30:57 Office Visit Leslie Carreon Joseph [facility] 1..114 350.1.13.10 4.2.7.2.686 [id number] 161 [id number] [facility] 2022-12-01 00:00:00 2022-12-01 00:00:00 Telephone Leslie Carreon [facility] 1..114 350.1.13.10 4.2.7.2.686 [id number] 161 [id number] [facility] 2022-11-26 00:00:00 2022-11-26 00:00:00 Telephone Corrine Llanos [facility] SPECIAL[facility] [place] 1..114 350.1.13.10 4.2.7.2.686 [id number] 161 [id number] [facility] 2022-11-18 09:00:00 2022-11-18 14:20:05 Outpatient Suly CASAREZ [facility] [id number] [facility] 2022-11-18 09:00:00 2022-11-18 14:20:05 Office Visit Leslie Carreon [facility] 1.84.114 350.1.13.10 4.2.7.2.686 [id number] 161 [id number] [facility] 2022-11-18 10:15:00 2022-11-18 10:30:00 Instructor Looping Visit Lab, [facility] .840.114 350.1.13.10 4.2.7.2.686 [id number] 353 [id number] [facility] 2022-11-13 09:00:00 2022-11-13 09:31:00 Outpatient R ALEXANDRIA WHITMORE [facility] [id number] [facility] 2022-11-13 09:00:00 2022-11-13 09:31:00 Office Visit Richard [facility] ..840.114 350.1.13.10 4.2.7.2.686 [id number] 134 [id number] [facility] 2022-11-13 00:00:00 2022-11-13 00:00:00 Letter (Out) Alexandria Whitmore [facility] ..840.114 350.1.13.10 4.2.7.2.686 [id number] [facility] 2022-11-12 10:15:25 2022-11-12 23:59:00 Outpatient R HERMELINDO [facility] [id number] [facility] 2022-11-12 10:15:25 2022-11-12 23:59:00 Hospital Encounter Rolan Casarez [facility] 1.84.114 350.1.13.10 4.2.7.2.686 [id number] [facility] 2022-10-28 09:30:00 2022-10-28 09:59:16 Outpatient R HERMELINDO [facility] [id number] [facility] 2022-10-28 09:30:00 2022-10-28 09:59:16 Office Visit Hermelindo [facility] 1.2840.114 350.1.13.10 4.2.7.2.686 [id number] 134 [id number] [facility] 2022-10-28 00:00:00 2022-10-28 00:00:00 Letter (Out) Hermelindo [facility] BU[facility] 1.2.840.114 350.1.13.10 4.2.7.2.686 [id number] 134 [id number] [facility] 2022-08-11 11:00:00 2022-08-11 11:47:20 Outpatient R MANNY VALLECILLO [facility] [id number] [facility] 2022-08-11 11:00:00 2022-08-11 11:47:20 Urgent Care Manny Vallecillo Unknown, Attending [facility] 1.2.840.114 350.1.13.10 4.2.7.2.686 [id number] [facility] 2022-06-16 00:00:00 2022-06-16 00:00:00 Telephone Hermelindo [facility] BU[facility] 1..840.114 350.1.13.10 4.2.7.2.686 [id number] 134 [id number] [facility] 2022-06-13 14:05:25 2022-06-13 23:59:00 [facility] [id number] [facility] 2022-06-13 14:05:25 2022-06-13 23:59:00 [facility] 1.0.114 350.1.13.10 4.2.7.2.686 [id number] [facility] 2022-06-06 00:00:00 2022-06-06 00:00:00 Outpatient Suly CASAREZ [facility] [id number] [facility] 2022-05-27 14:00:00 2022-05-27 15:06:27 Outpatient Suly CASAREZ [facility] [id number] [facility] 2022-05-27 14:00:00 2022-05-27 15:06:27 Office Visit Hermelindo [facility] 1.114 350.1.13.10 4.2.7.2.686 [id number] 134 [id number] [facility] 2022-05-27 00:00:00 2022-05-27 00:00:00 Orders Only Doctor Unassigned, [place] [facility] 1..114 350.1.13.10 4.2.7.2.686 [id number] [id number] [facility] 2022-02-21 12:00:22 2022-02-21 23:59:[address] [facility] 1..114 350.1.13.10 4.2.7.2.686 [id number] [facility] 2022-02-21 10:48:03 2022-02-21 11:59:00 Outpatient R HERMELINDO [facility] [id number] [facility] 2022-02-21 10:48:03 2022-02-21 11:59:00 Hospital Encounter Rolan Casarez [facility] 1.2.840.114 350.1.13.10 4.2.7.2.686 [id number] [facility] 2022-02-05 13:00:00 2022-02-05 13:36:35 Outpatient R ADJUSTINABROOKLYN [facility] [id number] [facility] 2022-02-05 13:00:00 2022-02-05 13:36:[address] [facility] 1.2.840.114 350.1.13.10 4.2.7.2.686 [id number] 134 [id number] [facility] 2022-02-05 00:00:00 2022-02-05 00:00:00 Telephone Adum [place] [facility] 1.2.840.114 350.1.13.10 4.2.7.2.686 [id number] 134 [id number] [facility] 2022-02-05 00:00:00 2022-02-05 00:00:00 Letter (Out) AdjustinaBrooklyn [facility] 1.2.840.114 350.1.13.10 4.2.7.2.686 [id number] 134 [id number] [facility] 2022-01-31 08:30:00 2022-01-31 09:33:19 Outpatient R ADUM [facility] [id number] [facility] 2022-01-31 08:30:00 2022-01-31 09:33:19 Office Visit Adjustina [place] [facility] BUILDING 1.2.840.114 350.1.13.10 4.2.7.2.686 [id number] 134 [id number] [facility] 2022-01-31 00:00:00 2022-01-31 00:00:00 Orders Only Doctor Unassigned, [place] [facility] 1.840.114 350.1.13.10 4.2.7.2.686 [id number] [facility] 2022-01-31 00:00:00 2022-01-31 00:00:00 Letter (Out) [place] Garduno [facility] 1..840.114 350.1.13.10 4.2.7.2.686 [id number] 134 [id number] [facility] 2022-01-13 09:00:00 2022-01-13 09:00:00 Outpatient MILAN PATEL [facility] [id number] [facility] 2022-01-13 00:00:00 2022-01-13 00:00:00 Telephone Liu Carlton [facility] SPECIALTY [place] 1.840.114 350.1.13.10 4.2.7.2.686 [id number] [facility] 2022-01-10 13:00:00 2022-01-10 13:00:00 Outpatient HAYLEY BRYANT [facility] [id number] [facility] 2022-01-02 10:45:00 2022-01-02 11:00:00 Instructor Looping Visit 2, Adc Lab Hermelindo Rolan [facility] 1..840.114 350.1.13.10 4.2.7.2.686 [id number] [facility] 2022-01-02 09:30:00 2022-01-02 10:12:42 Outpatient Suly CASAREZ ROLAN [facility] [id number] [facility] 2022-01-02 09:30:00 2022-01-02 10:12:42 Office Visit Hermelindo Rolan [facility] 1..840.114 350.1.13.10 4.2.7.2.686 [id number] 134 [id number] [facility] 2022-01-02 00:00:00 2022-01-02 00:00:00 Orders Only Doctor Unassigned, [place] [facility] 1.2.840.114 350.1.13.10 4.2.7.2.686 [id number] [facility] 2021-04-03 10:40:00 2021-04-03 10:40:00 Outpatient KAREN ZAMORANO [facility] [id number] [facility] 2021-02-22 00:00:00 2021-02-22 00:00:00 Telephone Alena Erickson [facility] 1.2.840.114 350.1.13.10 4.2.7.2.686 [id number] 225 [id number] [facility] 2021-02-12 00:00:00 2021-02-12 00:00:00 Telephone Rolan Casarez [facility] 1.2.840.114 350.1.13.10 4.2.7.2.686 [id number] 134 [id number] [facility] 2021-01-05 20:38:00 2021-01-05 22:55:00 Emergency Roma Adame [facility] 1.2.840.114 350.1.13.10 4.2.7.2.686 [id number] [facility] 2020-08-23 15:00:00 2020-08-23 15:00:00 Outpatient Suly CASAREZ ROLAN [facility] [id number] [facility] 2020-08-06 14:00:00 2020-08-06 14:00:00 Outpatient Suly CASAREZ ROLAN [facility] [id number] [facility] 2020-07-06 11:20:00 2020-07-06 11:20:34 Outpatient R EMELY CANALES [facility] [id number] [facility] 2020-06-15 11:20:00 2020-06-15 12:18:13 Outpatient R EMEYL CANALES [facility] [id number] [facility] 2020-06-12 00:00:00 2020-06-12 00:00:00 Patient Outreach Chinmay Aly Everardo [facility] 1.2.840.114 350.1.13.10 4.2.7.2.686 [id number] 2020-06-12 00:00:00 2020-06-12 00:00:00 Patient Outreach Chinmay Aly Everardo [facility] 1.2.840.114 350.1.13.10 4.2.7.2.686 [id number] [facility] 2020-04-25 00:00:00 2020-04-25 00:00:00 Telephone Alexandria Whitmore [facility] 1.2.840.114 350.1.13.10 4.2.7.2.686 [id number] 134 [id number] 2020-04-25 00:00:00 2020-04-25 00:00:00 Telephone Alexandria Whitmore [facility] 1.2.840.114 350.1.13.10 4.2.7.2.686 [id number] 134 [id number] [facility] 2020-04-16 10:23:22 2020-04-16 10:43:22 Nurse Visit Nurse, Alena Timmons [facility] 1.2.840.114 350.1.13.10 4.2.7.2.686 [id number] [facility] 2020-04-16 10:20:00 2020-04-16 10:20:00 Outpatient R [facility] [id number] [facility] 2020-04-03 11:08:11 2020-04-03 11:23:11 Instructor Looping Visit 2, Adc Lab Alena Erickson [facility] Building 1.2.840.114 350.1.13.10 4.2.7.2.686 [id number] [facility] 2020-04-03 11:00:00 2020-04-03 11:00:00 Outpatient R ALENA ERICKSON [facility] [id number] [facility] 2020-04-02 11:30:50 2020-04-02 13:18:47 [facility] 1.2.840.114 350.1.13.10 4.2.7.2.686 [id number] [facility] 2020-04-02 10:47:55 2020-04-02 11:50:03 Office Visit Karen Siddiqui [facility] Building 1.2.840.114 350.1.13.10 4.2.7.2.686 [id number] 225 [id number] 2020-04-02 10:47:55 2020-04-02 11:50:03 [facility] 1.2.840.114 350.1.13.10 4.2.7.2.686 [id number] [facility] 2020-04-02 10:40:00 2020-04-02 10:40:00 [facility] [id number] [facility] 2020-04-02 00:00:00 2020-04-02 00:00:00 Letter (Out) Alena Erickson [facility] Building 1.2.840.114 350.1.13.10 4.2.7.2.686 [id number] [facility] 2020-02-24 13:11:12 2020-02-24 14:13:29 [facility] 1.2.840.114 350.1.13.10 4.2.7.2.686 [id number] [facility] 2020-02-24 13:00:00 2020-02-24 13:00:00 Out[facility] [id number] [facility] 2020-02-01 13:00:00 2020-02-01 13:00:00 Outpatient R [facility] [id number] [facility] 2020-01-30 14:47:20 2020-01-30 15:35:45 Office Visit WhitmoreAlexandria [facility] Building 1.2.840.114 350.1.13.10 4.2.7.2.686 [id number] [facility] 2020-01-30 15:00:00 2020-01-30 15:00:00 Outpatient R ALEXANDRIA WHITMORE [facility] [id number] [facility] 2020-01-10 14:35:02 2020-01-10 16:02:32 Office Visit Rolan Casarez [facility] Building 1.2.840.114 350.1.13.10 4.2.7.2.686 [id number] 134 [id number] [facility] 2020-01-10 14:45:00 2020-01-10 14:45:00 Outpatient R ROLAN CASAREZ [facility] [id number] [facility] 2019-12-15 10:45:00 2019-12-15 10:45:00 [id number] 2019-12-15 00:00:00 2019-12-15 00:00:00 Telephone Alena Erickson [facility] TRIAGE SPECIALIST [facility] 1.114 350.1.13.10 4.2.7.2.686 [id number] [facility] 2019-11-30 15:00:00 2019-11-30 15:00:00 Outpatient R [facility] [id number] [facility] 2019-11-18 09:30:00 2019-11-18 09:30:00 Outpatient R ROLAN CASAREZ [facility] [id number] [facility] 2019-11-14 00:00:00 2019-11-14 00:00:00 Telephone Alexandria Whitmore [facility] 1..114 350.1.13.10 4.2.7.2.686 [id number] [facility] 2019-10-13 00:00:00 2019-10-13 00:00:00 Orders Only Doctor Unassigned, [place] [facility] 1..114 350.1.13.10 4.2.7.2.686 [id number] [facility] 2019-10-12 12:44:00 2019-10-12 23:59:00 Hospital Encounter Dalia Escalante Eeg, Sapna Pedi Neuro [facility] [place] 1.84.114 350.1.13.10 4.2.7.2.686 [id number] [facility] 2019-10-12 12:44:33 2019-10-12 13:44:33 Office Visit Dalia Escalante [facility] [place] 1..114 350.1.13.10 4.2.7.2.686 [id number] [facility] 2019-10-12 13:00:00 2019-10-12 13:00:00 Outpatient R DALIA ESCALANTE [facility] [id number] [facility] 2019-10-07 12:46:26 2019-10-07 13:32:19 Office Visit Alexandria Whitmore [facility] 1.2.840.114 350.1.13.10 4.2.7.2.686 [id number] [facility] 2019-10-07 13:00:00 2019-10-07 13:00:00 Outpatient R ALEXANDRIA WHITMORE [facility] [id number] [facility] 2019-10-07 00:00:00 2019-10-07 00:00:00 Orders Only Doctor Unassigned, [place] [facility] 1.2.840.114 350.1.13.10 4.2.7.2.686 [id number] [facility] 2019-10-06 14:55:54 2019-10-06 17:13:05 Office Visit Alena Erickson [facility] 1.2.840.114 350.1.13.10 4.2.7.2.686 [id number] [facility] 2019-10-06 15:00:00 2019-10-06 15:00:00 Outpatient R ALENA ERICKSON [facility] [id number] [facility] 2019-10-06 00:00:00 2019-10-06 00:00:00 Orders Only Doctor Unassigned, [place] [facility] 1.2.840.114 350.1.13.10 4.2.7.2.686 [id number] [facility] 2019-10-05 00:00:00 2019-10-05 00:00:00 Telephone Rolan Casarez [facility] 1.2.840.114 350.1.13.10 4.2.7.2.686 [id number] [facility] 2019-09-28 15:30:00 2019-09-28 15:30:00 Outpatient R [facility] [id number] [facility] 2019-09-15 15:00:00 2019-09-15 15:00:00 Outpatient R ROLAN CASAREZ [facility] [id number] [facility] 2019-08-31 15:00:00 2019-08-31 15:00:00 Outpatient R [facility] [id number] [facility] 2019-08-16 07:38:13 2019-08-16 23:59:00 Outpatient R ALEXANDRIA WHITMORE [facility] [id number] [facility] 2019-08-16 07:38:00 2019-08-16 23:59:00 Hospital Encounter Alexandria Whitmore [facility] 1.2.840.114 350.1.13.10 4.2.7.2.686 [id number] [facility] 2019-08-08 00:00:00 2019-08-08 00:00:00 Case Management Rolan Casarez [facility] 1.2.840.114 350.1.13.10 4.2.7.2.686 [id number] [facility] 2019-08-04 13:33:06 2019-08-04 14:36:24 Office Visit Alexandria Whitmore [facility] 1.2.840.114 350.1.13.10 4.2.7.2.686 [id number] [facility] 2019-08-04 13:30:00 2019-08-04 13:30:00 Outpatient R ALEXANDRIA WHITMORE [facility] [id number] [facility] 2019-08-04 00:00:00 2019-08-04 00:00:00 Orders Only Doctor Unassigned, [place] [facility] 1.2.840.114 350.1.13.10 4.2.7.2.686 [id number] [facility] 2019-07-19 00:00:00 2019-07-19 00:00:00 Telephone Alexandria Whitmore [facility] 1.2840.114 350.1.13.10 4.2.7.2.686 [id number] 134 [id number] [facility] 2019-06-16 11:24:51 2019-06-16 11:39:51 Instructor Looping Visit 2, [facility] Alena Erickson [facility] 1.2840.114 350.1.13.10 4.2.7.2.686 [id number] [facility] 2019-06-16 11:15:00 2019-06-16 11:15:00 Outpatient R RAY ALENA [facility] [id number] [facility] 2019-06-16 00:00:00 2019-06-16 00:00:00 Orders Only Doctor Unassigned, [place] [facility] 1.2840.114 350.1.13.10 4.2.7.2.686 [id number] [facility] 2019-06-16 00:00:00 2019-06-16 00:00:00 Telephone Alena Erickson [facility] 1.2.840.114 350.1.13.10 4.2.7.2.686 [id number] [facility] 2019-06-15 10:45:00 2019-06-15 10:45:00 Outpatient R ROLAN CASAREZ [facility] [id number] [facility] 2019-06-15 08:26:10 2019-06-15 08:56:10 Telemedici ne Visit Hermelindo Rolan [facility] 1.284.114 350.1.13.10 4.2.7.2.686 [id number] 134 [id number] [facility] 2019-06-09 08:45:00 2019-06-09 08:45:00 Outpatient R ROLAN CASAREZ [facility] [id number] [facility] 2019-06-02 15:45:00 2019-06-02 15:45:00 Outpatient R ROLAN CASAREZ [facility] [id number] [facility] 2019-05-31 13:45:00 2019-05-31 13:45:00 Outpatient R [facility] [id number] [facility] 2019-05-23 14:21:31 2019-05-23 16:27:38 Office Visit Alena Erickson [facility] Building 1..840.114 350.1.13.10 4.2.7.2.686 [id number] 225 [id number] [facility] 2019-05-23 14:30:00 2019-05-23 14:30:00 Outpatient R ALENA ERICKSON [facility] [id number] [facility] 2019-05-23 00:00:00 2019-05-23 00:00:00 Letter (Out) Alena Erickson [facility] Building 1..840.114 350.1.13.10 4.2.7.2.686 [id number] 225 [id number] [facility] 2019-05-16 15:19:14 2019-05-16 15:52:21 Nurse Visit Nurse, [facility] Alexandria Whitmore [facility] Building 1..840.114 350.1.13.10 4.2.7.2.686 [id number] 134 [id number] [facility] 2019-05-16 15:30:00 2019-05-16 15:30:00 Outpatient R ALEXANDRIA WHITMORE [facility] [id number] [facility] 2019-05-03 13:12:12 2019-05-03 14:43:58 Office Visit Urology, [facility] Demetrius Rogel [facility] 1.2.840.114 350.1.13.10 4.2.7.2.686 [id number] [facility] 2019-05-03 00:00:00 2019-05-03 00:00:00 Orders Only Doctor Unassigned, [place] [facility] 1.2.840.114 350.1.13.10 4.2.7.2.686 [id number] 009 [id number] [facility] 2019-05-03 00:00:00 2019-05-03 00:00:00 Letter (Out) Urology, Ruby Alejo [facility] Building 1.2.840.114 350.1.13.10 4.2.7.2.686 [id number] 298 [id number] [facility] 2019-03-22 14:44:34 2019-03-22 16:20:55 Office Visit Urology, Demetrius Strickland [facility] 1.2.840.114 350.1.13.10 4.2.7.2.686 [id number] 298 [id number] [facility] 2018-12-01 00:00:00 2018-12-01 00:00:00 [facility] 1.2.840.114 350.1.13.10 4.2.7.2.686 [id number] 134 [id number] [facility] 2018-11-30 00:00:00 2018-11-30 00:00:00 Telephone [place] [facility] Building 1.2.840.114 350.1.13.10 4.2.7.2.686 [id number] 134 [id number] [facility] 2018-11-12 07:59:52 2018-11-12 08:43:27 Office Visit [place] [facility] Building 1.2.840.114 350.1.13.10 4.2.7.2.686 [id number] 134 [id number] [facility] 2018-11-12 00:00:00 2018-11-12 00:00:00 Letter (Out) Apryl Guerrero [facility] Building 1.2.840.114 350.1.13.10 4.2.7.2.686 [id number] 134 [id number] [facility] 2018-11-11 08:24:16 2018-11-11 08:54:22 Nurse Visit Nurse, [facility] Richard Alexandria Skyler [facility] Building 1.2.840.114 350.1.13.10 4.2.7.2.686 [id number] 134 [id number] [facility] 2018-11-11 00:00:00 2018-11-11 00:00:00 Orders Only Doctor Unassigned, [place] [facility] 1.2.840.114 350.1.13.10 4.2.7.2.686 [id number] 009 [id number] [facility] 2018-10-07 14:49:05 2018-10-07 16:35:54 Office Visit Karen Siddiqui Elizabeth A [facility] Building 1.2.840.114 350.1.13.10 4.2.7.2.686 [id number] 225 [id number] [facility] Results Test Description Test Time Test Comments Results Result Co mments Source [facility] Metabolic Panel (49931)2023-06-04 16:01:29* Test Item Value Reference Range Interpretation Comme nts NA (test code = 0071579125) 134 mmol/L 135-145 L K (test code = 0529213445) 3.6 mmol/L 3.5-5.0 CL (test code = 7633534278) 106 mmol/L 98-108 CO2 TOTAL (test code = 6349756873) 20 mmol/L 23-31 L AGAP (test code = 7023944567) 8 2-16 BUN (test code = 1674848455) 7 mg/dL 7-23 GLUCOSE (test code = 8378256570) 128 mg/dL 70-110 H CREATININE (test code = 2160-0) 0.42 mg/dL 0.50-1.04 L TOTAL BILI (test code = 3267465990) 0.3 mg/dL 0.1-1.1 CALCIUM (test code = 7483764685) 9.4 mg/dL 8.6-10.6 T PROTEIN (test code = 0331360830) 6.9 g/dL 6.3-8.2 ALBUMIN (test code = 3959510377) 3.9 g/dL 3.5-5.0 ALK PHOS (test code = 8878377091) 51 U/L 34-122 ALTv (test code = 1742-6) 18 U/L 5-35 AST(SGOT) (test code = 8760324411) 20 U/L 13-40 eGFR (test code = 10822-3) 142.9 mL/min/1.73m2 CKD-EPI eGFR (2020). Assuming creatinine has been stable day-to-day for at least three months, the eGFR indicates Category G1 (>= 90 mL/min/1.73 m2) Lab Interpretation (test code = 73504-1) Abnormal [facility]esium2024-03-14 16:01:29* Test Item Value Reference Range Interpretation Comme nts MAGNESIUM (test code = 5063067269) 1.8 mg/dL 1.7-2.4 Lab Interpretation (test cod e = 08260-7) Normal [facility] with Vmvm7924-45-24 15:56:10* Test Item Value Reference Range Interpretation Comme nts WBC (test code = 6690-2) 9.80 4.30-11.10 RBC (test code = 789-8) 4.51 3.93-5.25 HGB (test code = 718-7) 13.2 g/dL 11.6-15.0 HCT (test code = 4544-3) 38.1 % 35.7-45.2 MCV (test code = 787-2) 84.5 fL 80.6-95.5 MCH (test code = 785-6) 29.3 pg 25.9-32.8 MCHC (test code = 786-4) 34.6 g/dL 31.6-35.1 RDW-SD (test code = 42753-1) 41.6 fL 39.0-49.9 RDW-CV (test code = 788-0) 13.5 % 12.0-15.5 PLT (test code = 777-3) 281 166-358 MPV (test code = 89507-5) 9.1 fL 9.5-12.9 L NRBC/100 WBC (test code = 7806119751) 0.0 0.0-10.0 NRBC x10^3 (test code = 1547443191) See_Comment [Automated messa ge] The system which generated this result transmitted reference range: 10*3/?L. The reference range was not used to interpret this result as normal/abnormal. GRAN MAT (NEUT) % (test code = 770-8) 70.1 % IMM GRAN % (test code = 8677288750) 0.50 % LYMPH % (test code = 736-9) 23.7 % MONO % (test code = 5905-5) 4.6 % EOS % (test code = 713-8) 0.9 % BASO % (test code = 706-2) 0.2 % GRAN MAT x10^3(ANC) (test code = 5498809050) 6.87 10*3/uL 1.88-7.09 IMM GRAN x10^3 (test code = 2494494618) 0.05 10*3/uL 0.00-0.06 LYMPH x10^3 (test code = 731-0) 2.32 10*3/uL 1.32-3.29 MONO x10^3 (test code = 742-7) 0.45 10*3/uL 0.33-0.92 EOS x10^3 (test code = 711-2) 0.09 10*3/uL 0.03-0.39 BASO x10^3 (test code = 704-7) 0.01-0.07 Lab Interpretation (test code = 33275-1) Abnormal [facility] Urinalysis w/o Specific Dldfcka7778-99-95 13:56:00* Test Item Value Reference Range Interpretation Comme nts POCT PH U (test code = 3254) 6 mg/dl 5-8 POCT U LEUK EST (test code = 3263) negative Negative - Negative POCT U NIT (test code = 3262) negative Negative - Negati ve POCT U PROT (test code = 3259) negative Negative - Negat thea POCT U GLU (test code = 3256) negative Negative - Negati ve POCT U KETONE (test code = 3258) negative Negative - Neg ative POCT U BLD (test code = 3257) negative Negative - Negati ve [facility] Urinalysis w/o Specific Myfwrwz1900-83-68 13:56:00* Test Item Value Reference Range Interpretation Comme nts POCT PH U (test code = 3254) 6 mg/dl 5-8 POCT U LEUK EST (test code = 3263) negative Negative - Negative POCT U NIT (test code = 3262) negative Negative - Negati ve POCT U PROT (test code = 3259) negative Negative - Negat thea POCT U GLU (test code = 3256) negative Negative - Negati ve POCT U KETONE (test code = 3258) negative Negative - Neg ative POCT U BLD (test code = 3257) negative Negative - Negati ve [facility] Hospital[facility] FIRST TRIMESTER LESS THAN 14 BKTLP5142-76-83 23:10:00PELVIC ULTRASOUND Indication: Vaginal bleeding asses viability Technique: Real time carney-scale and color ultrasound images of the pelviswere obtained with a transabdominal approach. Color and spectral Dopplerwas performed. Images were saved for the patient's medical record. Comparison: February RL: Ordering Clinician: GUI ALY Technical Quality: Adequate Findings: Uterus: The uterus is anteverted in position measuring 8.4 x 6.1 x 7.4 cm. Endometrium/Contents: Fundal intrauterine with a gestational sac3.6 cm, 9 weeks 5 days. Erhard-rump length 2.0 cm corresponding with 8 weeksand 5 days. heart rate 176 bpm. Yolk sac 0.3 cm. Subjectively normalfluid content of the gestational sac. No adjacent hemorrhage. Right Adnexa: Right ovary not visualized. Left Adnexa: Left ovary not visualized. Additional Findings: No free fluid is in the cul-de-sac.[facility] Urinalysis w/o Specific Icuhplo2532-14-01 16:46:00* Test Item Value Reference Range Interpretation Comme nts POCT PH U (test code = 3254) n/a 5-8 POCT U LEUK EST (test code = 3263) n/a Negative - Negative POCT U NIT (test code = 3262) n/a Negative - Negati ve POCT U PROT (test code = 3259) Negative Negative - Negat thea POCT U GLU (test code = 3256) Normal Negative - Negati ve POCT U KETONE (test code = 3258) n/a Negative - Neg ative POCT U BLD (test code = 3257) n/a Negative - Negati ve [facility] Urinalysis w/o Specific Mhjmczq9271-29-27 16:46:00* Test Item Value Reference Range Interpretation Comme nts POCT PH U (test code = 3254) n/a 5-8 POCT U LEUK EST (test code = 3263) n/a Negative - Negative POCT U NIT (test code = 3262) n/a Negative - Negati ve POCT U PROT (test code = 3259) Negative Negative - Negat thea POCT U GLU (test code = 3256) Normal Negative - Negati ve POCT U KETONE (test code = 3258) n/a Negative - Neg ative POCT U BLD (test code = 3257) n/a Negative - Negati ve [facility] Juhn2272-17-03 20:49:00* Test Item Value Reference Range Interpretation Comme nts POCT PREG (test code = 1605) Positive On board controls acceptable with C Line (test code = 3574) Yes POCT PREG LOT # (test code = 3575) POCT PREG TEST DATE ( test code = 3576) [facility] Urinalysis w/o Specific Uuqnrsh4547-61-48 20:49:00* Test Item Value Reference Range Interpretation [...] = 3257) Negative Negative - Negati ve [facility] Naxu1236-60-87 20:49:00* Test Item Value Reference Range Interpretation Comme nts POCT PREG (test code = 1605) Positive On board controls acceptable with C Line (test code = 3574) Yes POCT PREG LOT # (test code = 3575) POCT PREG TEST DATE ( test code = 3576) [facility] Urinalysis w/o Specific Kswbzcj3712-22-20 20:49:00* Test Item Value Reference Range Interpretation [...] = 3257) Negative Negative - Negati ve [facility] MOLECULAR GEFGD5341-47-72 16:32:49* Test Item Value Reference Range Interpretation Comme nts POCT Molecular Strep (test c ode = 31405-8) Negative Negative Lab Interpretation (test cod e = 10839-3) Normal [facility] URINALYSIS W/O SPECIFIC FTIWRFH1017-31-75 20:36:00* Test Item Value Reference Range Interpretation [...] = 3257) negative Negative - Negati ve [facility] URINALYSIS W/O SPECIFIC ESWAWEW7863-11-30 20:36:00* Test Item Value Reference Range Interpretation [...] = 3257) negative Negative - Negati ve [facility] BHGK6389-52-94 15:01:00* Test Item Value Reference Range Interpretation Comme nts POCT PREG (test code = 1605) Negative On board controls acceptable with C Line (test code = 3574) Yes POCT PREG LOT # (test code = 3575) POCT PREG TEST DATE ( test code = 3576) [facility] MHRT6418-47-42 15:01:00* Test Item Value Reference Range Interpretation Comme nts POCT PREG (test code = 1605) Negative On board controls acceptable with C Line (test code = 3574) Yes POCT PREG LOT # (test code = 3575) POCT PREG TEST DATE ( test code = 3576) [facility] BBFZ0701-14-90 15:01:00* Test Item Value Reference Range Interpretation Comme nts POCT PREG (test code = 1605) Negative On board controls acceptable with C Line (test code = 3574) Yes POCT PREG LOT # (test code = 3575) POCT PREG TEST DATE ( test code = 3576) [facility] HospitalETHANOL2021-10-17 02:46:43* Test Item Value Reference Range Interpretation Comme nts ALCOHOL (test code = 2873343789) <10 mg/dL HAZEL (test code = HAZEL) <10 Gupmmcnu39-705 Toxic>100 Depression of MACHINE ETCHER>[address] [facility] AURN0050-69-82 02:44:00* Test Item Value Reference Range Interpretation Comme nts POCT PREG (test code = 1605) negative On board controls acceptable with C Line (test code = 3574) present POCT PREG LOT # (test code = 3575) [id number] POCT PREG TEST DATE ( test code = 3576) 2022-04-22 Lab Interpretation (test cod e = 02845-1) Normal [facility] METABOLIC PANEL (79403)2021-01-06 02:40:21* Test Item Value Reference Range Interpretation Comme nts NA (test code = 2023449618) 139 mmol/L 135-145 K (test code = 4024656571) 3.8 mmol/L 3.5-5.0 CL (test code = 7293255349) 114 mmol/L 98-108 H CO2 TOTAL (test code = 3954172044) 20 mmol/L 23-31 L AGAP (test code = 5343848792) 2-16 BUN (test code = 3531212624) 13 mg/dL 7-23 GLUCOSE (test code = 0046311663) 86 mg/dL 70-110 CREATININE (test code = 2732085186) 0.53 mg/dL 0.50-1.04 TOTAL BILI (test code = 4103046565) 0.4 mg/dL 0.1-1.1 CALCIUM (test code = 4777162367) 7.8 mg/dL 8.6-10.6 L T PROTEIN (test code = 8920302334) 5.6 g/dL 6.3-8.2 L ALBUMIN (test code = 8542143965) 3.1 g/dL 3.5-5.0 L ALK PHOS (test code = 6757393554) 36 U/L 34-122 ALTv (test code = 1742-6) 14 U/L 5-35 AST(SGOT) (test code = 1449162809) 26 U/L 13-40 eGFR (test code = 5236505863) mL/min/1.73m2 HAZEL (test code = HAZEL) Association [...] imaging tests). Lab Interpretation (test code = 90009-3) Abnormal [facility] HospitalLactic Acid Whole Lvocu6663-89-15 02:30:07* Test Item Value Reference Range Interpretation Comme nts LACTIC ACID (test code = 6061636239) 1.53 mmol/L 0.50-2.20 Lab Interpretation (test cod e = 20034-2) Normal [facility] HospitalCB WITH BINM1645-26-10 02:20:01* Test Item Value Reference Range Interpretation Comme nts WBC (test code = 6690-2) See_Comment [Automated [employer]] The system which generated this result transmitted reference range: 4.50 - 13.50 10*3/?L. The reference range was not used to interpret this result as normal/abnormal. RBC (test code = 789-8) See_Comment [Automated [employer]] The system which generated this result transmitted [...] g/dL 32.0-36.0 L RDW-SD (test code = 03753-2) 45.0 fL 38.5-49.0 RDW-CV (test code = 788-0) 14.8 % 11.5-14.0 H PLT (test code = 777-3) See_Comment [Automated messa ge] The system which generated this result transmitted reference range: 135 - 361 10*3/?L. The reference range was not used to interpret this result as normal/abnormal. MPV (test code = 85882-5) 10.5 fL 9.4-13.3 NRBC/100 WBC (test code = 6647670515) See_Comment [Automated [employer]Sense ssage] The system which generated this result transmitted reference range: 0.0 - 10.0 /100 WBCs. The reference range was not used to interpret this result as normal/abnormal. NRBC x10^3 (test code = 1937167322) <0.01 See_Comment [Automated messa ge] The system which generated this result transmitted reference range: 10*3/?L. The reference range was not used to interpret this result as normal/abnormal. GRAN MAT (NEUT) % (test code = 770-8) 45.6 % IMM GRAN % (test code = 5858507841) 0.20 % LYMPH % (test code = 736-9) 42.0 % MONO % (test code = 5905-5) 9.9 % EOS % (test code = 713-8) 2.1 % BASO % (test code = 706-2) 0.2 % GRAN MAT x10^3(ANC) (test code = 9587213372) 3.68 10*3/uL 1.50-10.30 IMM GRAN x10^3 (test code = 0627416754) <0.03 0.00-0.06 LYMPH x10^3 (test code = 731-0) 3.39 10*3/uL 0.70-7.40 MONO x10^3 (test code = 742-7) 0.80 10*3/uL 0.00-0.50 H EOS x10^3 (test code = 711-2) 0.17 10*3/uL 0.00-0.40 BASO x10^3 (test code = 704-7) <0.03 0.00-0.10 Lab Interpretation (test code = 19533-5) Abnormal [facility] RAPID STREP SCREEN FOR GROUP H2240-07-88 19:24:00* Test Item Value Reference Range Interpretation Comme nts POCT GP A STREP (test code = 68145-2) negative Negative - Negative [facility] RAPID STREP SCREEN FOR GROUP W3290-15-79 19:24:00* Test Item Value Reference Range Interpretation Comme nts POCT GP A STREP (test code = 74458-3) negative Negative - Negative [facility] APQCUQAOQHZSFLPVRBVV2733-77-43 00:00:00* Test Item Value Reference Range Interpretation Comme nts IMP (test code = IMP) Electroencephalogram Report NAME: Romy Vega: 19 Year(s) 6 Month(s)DATE OF EE10/12/2019PROCEDURE: ?EEG ? ? EEG#: [id number] PHYSICIAN: Dalia Escalante MDLOCATION: [facility] [place] [facility] DIAGNOSIS: Seizure vs PNESPERTINENT MEDICATIONS: ?N/A [...] for age in wake and sleep. Dalia Escalante MD Recording time: 44m39s Lab Interpretation (test code = 92640-6) Normal [facility] ULTRASOUND BREAST LIMITED YRGE8958-98-01 13:32:53HISTORY: 2 palpable masses in the left [...] classification: Category II. [facility], Radiant Results Inft - 08/16/2019 8:34 AM CDTHISTORY: 2 palpable [...] with the patient and hermother.ACR classification: Category II.[facility] URINALYSIS W/O SPECIFIC GRAVITY 2019-08-04 19:35:00* Test [...] = 3257) 4+ Negative - Negati ve [facility] URINALYSIS W/O SPECIFIC TTFXXWJ4856-51-01 19:35:00* Test Item Value Reference Range Interpretation [...] = 3257) 4+ Negative - Negati ve [facility] MJFN6756-07-49 18:57:00* Test Item Value Reference Range Interpretation Comme nts POCT PREG (test code = 1605) Negative On board controls acceptable with C Line (test code = 3574) Yes POCT PREG LOT # (test code = 3575) POCT PREG TEST DATE ( test code = 3576) [facility] BCQL4052-10-45 18:57:00* Test Item Value Reference Range Interpretation Comme nts POCT PREG (test code = 1605) Negative On board controls acceptable with C Line (test code = 3574) Yes POCT PREG LOT # (test code = 3575) POCT PREG TEST DATE ( test code = 3576) [facility] NLVNZUQ3792-35-09 22:13:00* Test Item Value Reference Range Interpretation Comme nts URINE CULTURE (test code = 630-4) > 100,000 CFU/mL mixed aerobic organisms - suggests endogenous microbial contamination [facility] YWOIFLR1476-14-61 22:13:00* Test Item Value Reference Range Interpretation Comme nts URINE CULTURE (test code = 630-4) > 100,000 CFU/mL mixed aerobic organisms - suggests endogenous microbial contamination [facility] Notes Date/Time Note Provider Source 2023-06-24 12:58:53 vI70+gEVvDngBKu82kLlYUYcDHrqnUMmlKQ0Bf6W qH 24SLypUq4NTu4g0xHaWhl54481-61-72Y58:58:53F ormatting of this note might be different from the original.Name and verified. FOB in system. Appt made for lab tomorrow.ALENA WELLS RN 06/24/2023 12:59 PM 95064-9Zbaympfft encounter KiudAL6056-68-53B57:59:18Telephone encounter NoteTXT1.2.840.028688.1.13.104.2.7.2.26374 9|[id number] for patient jjuk62158-7RogzTLLFKMWXSYUBzwalcypr C-CDA narrative [id number] Wells RN[address] RalbPlwg[id number] HFBEJHMQRDOIBFHB0505-97-20M29:59:181.2.840 .271597.1.72.3.15|1.2.840.798819.1.13.104. 2.7.2.727879_[id number] Alena Wells [facility] 2023-06-24 12:18:39 F0oMp6OLL27ZhwFJcfzZcqwRQXOp4cuQQgchyBgU Bi o0z6ylqmwzLxsNxXQwxfS03767-40-44X95:18:39F ormatting of this note might be different from the original.Patient says a mechanical laboratory technician was suppose to come out today to her home to draw labs on boyfriend and did not show up they want to know if he can just come into one of our lab clinics today. 23229-2Ywpqaomln encounter ArzsSS8118-70-87V62:20:01Telephone encounter NoteTXT1.2.840.450650.1.13.104.2.7.2.10442 9|[id number] for patient uuzi21331-3ZcwdLOPJXHMOTXETsutvdere C-CDA narrative wiqm412025650Zrexg [address] YbufPszblrpebPzxlzrogbMDOJ1001270461ZJUUXS ZFBOKDKPVEDLWCKQ5075-83-16P86:20:011.2.840 .037943.1.72.3.15|1.2.840.787790.1.13.104. 2.7.2.727879_[id number] Dana Giovanni [facility] 2023-06-17 10:36:21 T/wgM+5hT+UqRC36wYW9+6ABIY6mOYMt2SjuCSN8 sP zxyVp9DLjPqIw8G6ZDkKRS1529-49-86T42:36:21F ormatting of this note might be different from the original.Spoke with patient. Patient gave permission for Eliu to cotton picking machine operator her gender results.Patient advised of [facility] results showing:Carrier for medium chain acyl-coA Dehydrogenase deficiencyPatient advised the next step is to have FOB tested. Patient gave FOB information to send order to [facility] results sent via [facility] per patient request.No other questions or concerns at this time.Shelly Conteh RN 06/17/2023 10:38 AM 70070-9Vzxpuksks encounter NargSJ1903-65-45J39:38:11Telephone encounter NoteTXT1.2.840.912590.1.13.104.2.7.2.94054 9|[id number] for patient glnh68204-6DsobZYHWWFTUEYEBgwbmmniq C-CDA narrative cpvy790426614Xlpqmqc Collins [id number] JHOJYEWENLJNEAEX4681-02-82S17:38:111.2.840 .472228.1.72.3.15|1.2.840.750489.1.13.104. 2.7.2.727879_[id number] Shelly Conteh [facility] 2023-06-17 09:31:05 7WEPl6vCr2wtqo0SE3pGG589mNRVyL8XULsyvg6r 7w qS10/jZ84r2vqa+YazO3Ur5707-27-18Y99:31:05F ormatting of this note might be different from the original.Romy Bernstein is a 23 year old femalePt states the test results for the baby are in and she does not want to know the gender. Pts best friend Eliu Guzman will be picking up the letter stating the gender because she will be having a gender reveal.eliu guzman [id number] signed by Zuly Gillespie at 06/17/2023 9:33 AM FUW33139-3Pijpvufhs encounter UnvcQC5903-12-71A25:33:31Telephone encounter NoteTXT1.2.840.766268.1.13.104.2.7.2.90807 9|[id number] for patient gcvv08633-3OcqxFWLWNZYRDBJAcbjtvmdm C-CDA narrative hadb545724627Uqgkylq A DiMarc[id number] PJKZJZSXKAZJMTHA0447-92-18X53:33:311.2.840 .941291.1.72.3.15|1.2.840.753405.1.13.104. 2.7.2.727879_[id number] Zuly Gillespie [facility] 2023-06-05 08:15:00 sUYbUbjHDrNJVsNa0g5lDJOw/URiNzoiTrTfiYPP jJ M1MUEYlJMBw71uQeH31vIt4971-63-35W52:15:00F ormatting of this note is different from the original.Images from the original note were not included.Venipuncture collection performed by clean technique on the left anticubitus. Total of 1 attempts were made. Slight pressure and a bandage/dressing were applied to the site(s). The patient experienced no complications. The following specimens were processed according to instructions and sent to [facility] laboratories per lab order on 06/05/2023:LT BLUESST 3RED 1LAV 3PPTDK GREEN (LiHep)DK GREEN (SodH)GRAYDK BLUE (K2)DK BLUE (S)ACDBlood CultureNIPT/NTDNatera only, dr whitmore will advise pt when to do 1hr gtt. will do urine next visit 10211-6Njshv PezmZV2551-41-21E41:44:39Nurse NoteTXT1.2.840.211296.1.13.104.2.7.2.80703 9|[id number] for patient foen06984-2Dzlyb NoteLNNARRATIVEFormatted C-CDA narrative text[address] Uc[id number] VPZSEXEDCCHOBDWQ3590-34-53N28:44:391.2.840 .595177.1.72.3.15|1.2.840.783821.1.13.104. 2.7.2.727879_[id number] [facility] 2023-06-04 14:07:28 wL1TAm2p3toX3mCYcqbo4bMBOmakgY+GQvkQrzC1 v1 Kj1PzPa+FBk++wfv2/Q3ub7525-74-34P50:07:28F ormatting of this note might be different from the original.PT D/C home. GCS15, VS stable. Given D/C paperwork. Pt ambulatory at time of discharge. Pt educated on med usage, follow up care, s/s worsening condition, need for hydration. Pt verbalized understanding.Pt ambulated from ED in NAD with her significant other 45205-1Dtrfykyev department StibAZ1111-63-78E54:07:46[facility] department NoteTXT1.2.840.337821.1.13.104.2.7.2.18310 9|[id number] for patient nqii63936-7XbiwKQNRPVLVIIFQwnsojzpn C-CDA narrative [id number] E Linkes RN[address] Rk[id number] JIMCFLVOROHTWTXA2538-14-75F18:07:461.2.840 .018318.1.72.3.15|1.2.840.792022.1.13.104. 2.7.2.727879_[id number] Paige Salinas RN [facility] 2023-06-04 11:22:17 OUJYika6qkBsGL5IA7Z7LdXiehC7ODrpBuxNOic9 u7 eFEwL+Bt7KZnpv+79dsDWM7431-13-46E01:22:17F ormatting of this note might be different from the original.Pt assisted back to [facility]. [address]8637-0Pepnzuqiv department TxihFW1604-87-79I70:22:31[facility] department NoteTXT1.2.840.399297.1.13.104.2.7.2.33463 9|[id number] for patient tgww50668-9HbssTZRIAKANXZHWxsrfotzi C-CDA narrative text[id number] TJOMQTXOWKUPOOVH4521-95-08G97:22:311.2.840 .612898.1.72.3.15|1.2.840.297696.1.13.104. 2.7.2.727879_[id number] [facility] 2023-06-04 11:18:34 shvLUaoo4a0KwbrF5emDqhiXiXTMrhkPJmsnRh84 t/ OdjjBhgIowiFW1oc8mYR/g6245-51-23S56:18:34F ormatting of this note might be different from the original.Pt up to restroom by w/c with Significant other assisting in restroom. 83038-0Rtefbsepr department KjffKW3065-30-60E47:18:57Ememulticare [facility] department NoteTXT1.2.840.689024.1.13.104.2.7.2.57881 9|[id number] for patient pehz01503-1RrulCIIWPRKIPKQTkitnpvad C-CDA narrative [id number] QWBYENJMHVPFBFAL4091-75-96T77:18:571.2.840 .874822.1.72.3.15|1.2.840.049945.1.13.104. 2.7.2.727879_[id number] [facility] 2023-06-04 10:18:24 MSA7QqQ/KP1aLGe9pQgR8WzzjM3/EwI4FDUl2gYB CB ZUzsfha3QWYA29stuXGDSe7941-34-84K97:18:24F ormatting of this note might be different from the original.Pt was retrieved from [facility] as a rapid response. Pt is ; 12w1d gestation at the [facility] for a 1hour glucose. Staff reports she drank the glucose at 0939. Pt transported to saroj; at bedside. Per pt's mother via phone pat does not take any seizure medications due to not having insurance. Male visitor at bedside. 78747-4Txbgiugsz department Triage muepGW2545-12-76I88:46:38Ememulticare [facility] department Triage noteTXT1.2.840.960464.1.13.104.2.7.2.73119 9|[id number] for patient agju00940-4Tvroarvvy department NoteLNNARRATIVEFormatted C-CDA narrative [id number] L Barker RN[address] BiceOkfisgbfrLovpjnnchNDML6028883250DEVQDE PFVXTEKTGBDMZTDF5402-06-02S01:46:381.2.840 .176214.1.72.3.15|1.2.840.355664.1.13.104. 2.7.2.727879_[id number] Vonda Diaz RN [facility] 2023-06-04 10:16:00 qnFJup2/pnN8lcI22nSTkrYWldIzt6tlnZe3pyg3 gF m1++YL7jD67uY5t0hO4w357045-64-34G80:16:00F ormatting of this note is different from the original.[facility] Emergency Department NotePatient Name: Romy BernsteinDate of : 2000 23 year old femaleTreatment Room: [facility]/AE08Aleaixf Record Number: [id number] Care Physician: PATIENT DOES NOT HAVE A PCPPatient Escorted by: Self [9]Mode of Arrival: Personal means [1]EMS Treatment Prior to ED Arrival:MEDICAL ART THERAPIST treatment: NoneTravel and Exposure Screening:SymptomsDoes patient have any of these symptoms?: (not recorded)Exposure ScreeningHas patient had contact with someone with a communicable disease in the last month?: (not recorded)Diseases exposed to:: (not recorded)Is Patient ?: (not recorded)Exposure Date: (not recorded)Chief Complaint:Chief ComplaintPatient presents withSeizuresHistory of Present Illness:Pt was retrieved from [facility] lobby as a rapid response after suffering a seizure. Pt is ; 12w1d gestation with know history of seizures (Not compliant with medication due to lack of insurance) at the [facility] for a 1hour glucose tolerance test.Seizure was tonic clonic without sphincter relaxation, and follow ed by post ictal status.History provided by: Nursing Staf.supervisor coremaker used: NoSeizuresSeizure activity on arrival: noSeizure type: Grand malPreceding symptoms: headacheInitial focality: MultifocalEpisode characteristics: abnormal movements and generalized shakingPostictal symptoms: confusionReturn to baseline: noSeverity: ModerateDuration: 30 secondsTiming: OnceNumber of seizures this episode: 1Progression: Partially resolvedContext: pregnancyContext comment: History of seizures, currently not taking medicationsRecent head injury: No recent head injuriesPTA treatment: NoneHistory of seizures: yesPast Medical History/Immunizations:Past Medical History:Diagnosis DateAllergic rhinitisAsthmaFamily history of familial hypercholesterolemiaHigh risk sexual behaviorMenorrhagiaMild episode of recurrent major depressive disorder 10/07/2018Ovarian cyst 02/24/2017Seizures 03/30/2018Due to Fever / StrepTetanus received in last 5 years: UnknownAllergies:AllergiesAllergen ReactionsSolifenacin SwellingPer mom, after increasing the dose to 10 mg , patient experienced swelling to the face.Keppra [Levetiracetam] Other - See commentsNumb mouth, and sleepyVesicare [Solifenacin Succinate] Rash and SwellingPast Social History:Tobacco UseNever smoked or used smokeless tobacco.Passive Exposure: YesVaping UseNever usedAlcohol UseNo.Drug UseNo.Sexual ActivitySexually active; Partners: Male.Past Surgical History:Past Surgical History:Procedure Laterality DateADENOIDECTOMYTONSILLECTOMYReview of Systems:Review of SystemsUnable to perform ROS: OtherNeurological: Positive for seizures.Patient Post IctalPhysical Exam:[facility] 06/04/23 1020 88.5 kg (195 lb)Actual or estimated 06/04/23 1020 Estimated by healthcare providerHeight --BP 06/04/23 1020 (!) 143/93Pulse 06/04/23 1020 88Resp 06/04/23 1020 16Temp 06/04/23 1022 36.9 ?C (98.4 ?F)Temp source 06/04/23 1022 AxillarySpO2 06/04/23 1020 100 %Measured on 06/04/23 1020 Room airPhysical ExamVitals and nursing note reviewed.Constitutional:General: She is not in acute distress.Appearance: She is well-developed and overweight. She is not ill-appearing, toxic-appearing or diaphoretic.HENT:Head: Normocephalic and atraumatic.Right Ear: External ear normal.Left Ear: External ear normal.Nose: Nose normal.Mouth/Throat:Pharynx: No oropharyngeal exudate.Eyes:General: No scleral icterus.Right eye: No discharge.Left eye: No discharge.Conjunctiva/sclera: Conjunctivae normal.Pupils: Pupils are equal, round, and reactive to light.Neck:Thyroid: No thyromegaly.Vascular: No JVD.Trachea: No tracheal deviation.Cardiovascular:Rate and Rhythm: Normal rate and regular rhythm.Heart sounds: Normal heart sounds. No murmur heard.No friction rub. No gallop.Pulmonary:Effort: Pulmonary effort is normal. No respiratory distress.Breath sounds: Normal breath sounds. No stridor. No wheezing or rales.Chest:Chest wall: No tenderness.Abdominal:General: Bowel sounds are normal. There is no distension.Palpations: Abdomen is soft. There is no mass.Tenderness: There is no abdominal tenderness. There is no guarding or rebound.Musculoskeletal:General: No tenderness or deformity. Normal range of motion.Cervical back: Normal range of motion and neck supple.Lymphadenopathy:Cervical: No cervical adenopathy.Skin:General: Skin is warm and dry.Coloration: Skin is not pale.Findings: No erythema or rash.Neurological:General: No focal deficit present.Mental Status: She is easily aroused. She is lethargic and confused.Cranial Nerves: No cranial nerve deficit or facial asymmetry.Motor: No abnormal muscle tone.Coordination: Coordination normal.Deep Tendon Reflexes: Reflexes are normal and symmetric. Reflexes normal.Reflex Scores:Bicep reflexes are 2+ on the right side and 2+ on the left side.Patellar reflexes are 2+ on the right side and 2+ on the left side.Comments: Exam limited due to post ictal statusPsychiatric:Behavior: Behavior normal.Thought Content: Thought content normal.Judgment: Judgment normal.Radiology:No orders to displayLab Results:Lab ResultsCBC WITH DIFF - AbnormalResult Value Ref RangeWBC 9.80 4.30 - 11.10 10*3/?LRBC 4.51 3.93 - 5.25 10*6/?LHGB 13.2 11.6 - 15.0 g/dLHCT 38.1 35.7 - 45.2 %MCV 84.5 80.6 - 95.5 fLMCH 29.3 25.9 - 32.8 pgMCHC 34.6 31.6 - 35.1 g/dLRDW-SD 41.6 39.0 - 49.9 fLRDW-CV 13.5 12.0 - 15.5 %PLT 281 166 - 358 10*3/?LMPV 9.1 (*) 9.5 - 12.9 fLNRBC/100 WBC 0.0 0.0 - 10.0 /100 WBCsNRBC x10^3 <0.01 10*3/?LGRAN MAT (NEUT) % 70.1 %IMM GRAN % 0.50 %LYMPH % 23.7 %MONO % 4.6 %EOS % 0.9 %BASO % 0.2 %GRAN MAT x10^3(ANC) 6.87 1.88 - 7.09 10*3/uLIMM GRAN x10^3 0.05 0.00 - 0.06 10*3/uLLYMPH x10^3 2.32 1.32 - 3.29 10*3/uLMONO x10^3 0.45 0.33 - 0.92 10*3/uLEOS x10^3 0.09 0.03 - 0.39 10*3/uLBASO x10^3 <0.03 0.01 - 0.07 10*3/uLCOMP. METABOLIC PANEL (65474) - AbnormalNA 134 (*) 135 - 145 mmol/LK 3.6 3.5 - 5.0 mmol/LCL 106 98 - 108 mmol/LCO2 TOTAL 20 (*) 23 - 31 mmol/LAGAP 8 2 - 16BUN 7 7 - 23 mg/dLGLUCOSE 128 (*) 70 - 110 mg/dLCREATININE 0.42 (*) 0.50 - 1.04 mg/dLTOTAL BILI 0.3 0.1 - 1.1 mg/dLCALCIUM 9.4 8.6 - 10.6 mg/Brigitte PROTEIN 6.9 6.3 - 8.2 g/dLALBUMIN 3.9 3.5 - 5.0 g/dLALK PHOS 51 34 - 122 U/LALTv 18 5 - 35 U/LAST(SGOT) 20 13 - 40 U/LeGFR 142.9 mL/min/1.52i3GPBJFDUSTK - AbnormalAPPEARANCE Clear ClearCOLOR Straw (*) YellowPH 6.0 4.8 - 8.0SP GRAVITY 1.005 1.003 - 1.030GLU U QUAL Normal NormalBLOOD Negative NegativeKETONES Negative NegativePROTEIN Negative NegativeUROBILIN Normal NormalBILIRUBIN Negative NegativeNITRITE Negative NegativeLEUK MARJAN 75/uL (*) NegativeRBC/HPF 3 0 - 3 HPFWBC/HPF 1 0 - 5 HPFBACTERIA Few (*) NegativeMUCOUS Slight (*) Negative LPFSQ EPITH 4 HPFMAGNESIUM - NormalMAGNESIUM 1.8 1.7 - 2.4 mg/dLTOTAL BETA HCG ASSAYBETA HCG 118,140.00 Non- female and male patients: <5 mIU/mLEKG:If EKG completed, see Procedure Note.Orders and Treatments:Orders Placed This EncounterProceduresCbc with DiffComp. Metabolic Panel (60540)MagnesiumUrinalysisTOTAL BHCG (QUANTITATIVE)Consult/Referral NeurologyOrders Placed This EncounterMedicationsondansetron (ZOFRAN (PF)) injection 4 mgfamotidine (PEPCID (PF)) injection 20 mglevETIRAcetam (KEPPRA) in NACL (ISO-OS) 1,000 mg/100 mL RTUFirst Provider Eval:ED EventsDate/Time Event User Llejazzm86/14/24 1023 Medical Screening Begins JESSE LEMOS MD --06/04/23 1023 First Provider Evaluation JESSE LEMOS MD --ED COURSEPatient's condition improved with the treatment provided in the ED, will DC Home wit a referral to Neurology for further evaluation and with instructions to follow up with her OBGYN to talk about alternatives for her seizure management.KEPPRA chosen as medication to treat her seizure following the latest Up to date recommendation:For women with epilepsy of childbearing age who are planning , lamotrigine or levetiracetam monotherapy are preferred as first line treatment options because they have the most abundant and consistent data for low structural and neurodevelopmental teratogenic risk during pregnancyDiagnosis/Impression as of 06/04/23 1356Seizure disorderFirst trimester pregnancyProcedures:ProceduresMDM:Medical Decision MakingProblems Addressed:First trimester : chronic illness or injurySeizure disorder: chronic illness or injuryAmount and/or Complexity of Data ReviewedIndependent Historian:Details: Mother called by phone and provided some information about her caseExternal Data Reviewed: labs and notes.Details: From her recent visit with Dr Whitmore her OBGYN reviewedLabs: ordered. Decision-making details documented in ED Course.RiskPrescription drug management.Drug therapy requiring intensive monitoring for toxicity.Flowsheet Documentation:Scoring Tools:No data recordedDisposition/Condition:ED DispositionED DispositionDisch - HomeConditionStableComment--Discharge Medications:Patient's MedicationsSTART taking these medicationsNo medications on fileCONTINUE taking these medications which have NOT CHANGEDDOXYLAMINE (UNISOM, DOXYLAMINE,) 25 MG TABLET Take 1 tablet by mouth at bedtime as needed for Nausea and Vomiting (N/V).LACTOBACILLUS ACIDOPHILUS (PROBIOTIC ORAL) Take by mouth.METOCLOPRAMIDE HCL 10 MG TABLET Take 1 tablet by mouth every 6 (six) hours as needed for Nausea and Vomiting (N/V).PNV NO.95/FERROUS FUM/FOLIC AC ( ORAL) Take by mouth.PYRIDOXINE, VITAMIN B-6, (VITAMIN B-6) 25 MG TABLET Take 1 tablet by mouth every 6 (six) hours as needed for Nausea and Vomiting (N/V).START taking Modified Medications as PrescribedNo medications on fileSTOP taking these medicationsNo medications on fileFollow-up:Electronically signed by:Jesse Lemos MD06/04/23 1356 13203-3Lhlzqylli Emergency department TgfdBZ8997-93-69A11:56:08Physician Emergency department NoteTXT1.2.840.951836.1.13.104.2.7.2.33554 9|[id number] for patient gtab72054-9Dbdqddkuh department NoteLNNARRATIVEFormatted C-CDA narrative text[id number] DEDBDSGLDDNPPNAE2223-01-03Z78:56:081.2.840 .581520.1.72.3.15|1.2.840.664292.1.13.104. 2.7.2.727879_[id number] [facility] 2023-06-04 10:00:00 lzG86hx3Mnh7ms7/YV3K7Sue7BH8jYphpD1Od1xj uz EmLQuQ5M4busLLvvfmixm25417-75-72P83:00:00F ormatting of this note might be different from the original.Loaded pt w 50gm fruit punch glucola, no issues.Draw time: 10:40 66069-2Idjux QhclGS6471-30-92Z67:41:10Nurse NoteTXT1.2.840.367215.1.13.104.2.7.2.99046 9|[id number] for patient rizn09839-7Ewkuv NoteLNNARRATIVEFormatted C-CDA narrative rond779406412Vzvp [id number] HFJALJECHNCWBADO1956-63-58L89:41:101.2.840 .324682.1.72.3.15|1.2.840.553315.1.13.104. 2.7.2.727879_[id number] Nadine Davis [facility] 2023-06-04 10:00:00 t1ZZcKJt+7Hf0hrZrUOhguLCUoUb0WB34iE39NH/ /3 OIpM3a9XuemNtOq3TqMsiP9188-15-20D87:00:00F ormatting of this note might be different from the original.Pt taken to er for seizures called [facility] office to notify them of incident. 21982-4Anjjs DnwoGP5974-10-62E36:12:40Nurse NoteTXT1.2.840.481629.1.13.104.2.7.2.34081 9|[id number] for patient tvjd86313-5Cjaae NoteLNNARRATIVEFormatted C-CDA narrative text[address] BaukTvcibhkrxFcmvvozpzELPO8403784484TKPNLD IRHXTKOSJRBNLBKK6722-95-10B07:12:401.2.840 .606276.1.72.3.15|1.2.840.016017.1.13.104. 2.7.2.727879_[id number] [facility] 2023-06-04 09:00:00 5HoqQwttCYo0QfBCNb88a5iwlWld9E9iGDWVLMqY wA QTSN+fnKBBObZjfwaiHPn65242-97-77Y33:00:00F ormatting of this note might be different from the original.Age: 23 year oldGA: 47j8oSbybrig of seizure-Patient states that she was seen at [facility] ER yesterday due to seizure. States that she has not been on seizure medication for more than a year. States that she typically gets a bad headache and then will blackout.-Referral to neurology placed on 05/07/2023. Has not been scheduled yet. Will have staff assist.History of depression-Was diagnosed at age 16. States that she was on medication until age 17. Saw a counselor/therapist until age 18.-EPDS 5 today. Denies SI/HI.-Will continue to monitorNausea/uktoiocb-Kjkafo-Atvpvfzub avoid triggers-Unisom/vitamin B6/Reglan as neededPanorama/Horizon kits given today with new OB labsPap smear with GC/CT/trichomoniasis obtained todayFollow-up in 4 weeks for visit 22255-5Qssvmmoi rovpLX7066-74-56B55:54:10Progress noteTXT1.2.840.419214.1.13.104.2.7.2.84571 9|[id number] for patient emwq13021-1LiafPDDPEGDIEMXGxmlwhtmd C-CDA narrative text[address] LcchTfkjopqqlCiqrblxhcYWDN7409422291ZPKDFL PKLAKGKYZDGVCNFC4908-55-37U47:54:101.2.840 .356819.1.72.3.15|1.2.840.514494.1.13.104. 2.7.2.727879_[id number] [facility] 2023-06-04 09:00:00 8LzuwidZjubwoBp3lck8s0Wt0V8hsWh9Lvx7nx65 TP SKlM2F0iBBhSEAL3D3RDEk3250-83-30G65:00:00A ddended by: SHELLY CONTEH on: 06/05/2023 08:32 AMModules accepted: Orders 10916-5Dxfrryjv VhzsbubrEI0878-19-68T80:32:13Addendum DocumentTXT1.2.840.177603.1.13.104.2.7.2.7 06568|3740937451JJEnazeszdt for patient rgzx64168-1McqzFHMPOTZPWAVZbbkqksbj C-CDA narrative uzhh155324347Tbwkdgl Collins [id number] GAXIDSIBPVPFRGYV5899-38-52B17:32:131.2.840 .722124.1.72.3.15|1.2.840.711906.1.13.104. 2.7.2.727879_[id number] Shelly Conteh RN [facility] 2023-05-16 17:24:32 XDwH5VmGd4vSrBSaGTpvSQqgLTxSwayz6VmWZUvK XM w3ORZayTcjR5QgcWjGcTs91788-09-35J52:24:32F ormatting of this note might be different from the original.PT D/C home. GCS15, VS stable. Given D/C paperwork. Pt ambulatory at time of discharge. Pt educated on med usage, follow up care, s/s worsening condition, need for hydration. Pt verbalized understanding. 26709-0Edeebtima department RjvgSP1705-71-56C82:24:37Emergency department NoteTXT1.2.840.935531.1.13.104.2.7.2.16113 9|[id number] for patient wwqb37697-5TohmMMZFNGIHFJWIaigljpwv C-CDA narrative lfwa445087139Nvmb E Linkes RN[id number] JIRJFRTNMCONXDQU7746-05-78B52:24:371.2.840 .282003.1.72.3.15|1.2.840.957384.1.13.104. 2.7.2.727879_[id number] Paige Salinas RN [facility] 2023-05-16 15:53:10 jqBB0UD1eUkpSL7riGWYBLn0+GXFMJ1mJ5KQpRtL Z8 5zxZKvBD7UjMN8TtoWyxdW9700-86-64F52:53:10F ormatting of this note might be different from the original.Patient states: "It started early this morning. I work for [employer] so I do a lot of heavy lifting so I dont' know if that's what's causing it. It's light and then after a few times of going to the restroom it gets darker then it stops. This is my first "G 1, P 0 , A 0Pmhx: pseudo seizures.Reports vaginal spotting. 73404-4Yzrwhaeah department Triage lasoUF6748-45-21R69:54:22Emergency department Triage noteTXT1.2.840.108876.1.13.104.2.7.2.99466 9|[id number] for patient atwc28631-9Ycodgqxsw department NoteLNNARRATIVEFormatted C-CDA narrative jssk990945264Weezh M Cruz RN[address] GbnxOrsilqfbbOcpoetpbsPZLG0725204324QXBYEO AKXVIIPDGHVTFONF3381-95-11Y31:54:221.2.840 .590793.1.72.3.15|1.2.840.526044.1.13.104. 2.7.2.727879_[id number] Claudia Ocasio RN [facility] 2023-05-07 10:00:00 Z5f50bQX6HMaP/IOljh8DQTCLh0NsMrp+TSChK/w iV CwcrlJo8ghS6NgVz94hSDo2349-62-02G97:00:00F ormatting of this note might be different from the original.Age: 23 year oldGA: 8w1d by Patient's last menstrual period was 03/11/2023.History of seizure-Patient states that she was seen at [facility] ER yesterday due to seizure. States that she has not been on seizure medication for more than a year. States that she typically gets a bad headache and then will blackout.-Referral to neurology placedHistory of depression-Will obtain more information next visitPatient states that she works at [employer] and sometimes have to lift as heavy as 30 to 40 pounds. Discussed to let us know if she has shortness of breath and for vaginal bleeding or cramping with heavy lifting.Patient does not have insurance at this time and wants to do for all labs/testing until May when her insurance will be available.- Transvaginal USG for FHT: Single live IUP measured 7 4/7 weeks, consistent with LMP. Will date by Patient's last menstrual period was 03/11/2023.unless clinically indicated otherwiseNew OB labs ordered, to be done next visit. No complaints. Discussed do's and don'ts of , safe foods, safe medications. Reviewed Zika virus precautions. I discussed the call schedule and that I might not be the physician delivering her. I discussed I deliver my patients at [facility]. Expectations for weight gain this include 11-20 pounds. Encouraged to call if have any additional questions or concerns. Discussed aneuploidy and carrier screening; patient opts for panorama and Horizon.Have received 2 doses of COVID vaccines. Counseled and recommend COVID booster vaccines.Received flu vaccines todayDiscussed about COVID-19/flu precautions. Social distancing, frequent hand washings, wearing face mask, signs/symptoms for testing and to follow CDC recommendations discussed.Discussed with patient that she can have HEALTHY support with her during her delivery (which is subject to change depends on the COVID pandemic)Follow-up in 4 weeks for visit 52766-4Tmvtxdbk dsdpRD0182-11-50S54:25:47Progress noteTXT1.2.840.979629.1.13.104.2.7.2.62152 9|1166967711XBRxowvxvzk for patient qqpl04638-6VscvRXIZMRPOLARKujhtimlq C-CDA narrative textUTMBUT - [address] WdslTgpofqnonJgmrvnsjdYQVR8395869786JQVKND FQIHEDGLYOQELFTT0684-79-71G39:25:471.2.840 .207265.1.72.3.15|1.2.840.833911.1.13.104. 2.7.2.727879_[id number] [facility] 2023-05-05 08:07:30 RGceneZfGsPscwsbwI8YZhQxXTMxERVb4uDoJ1rN 2l NDBDL3wsZFuQ8HCOjKqa663964-67-59K48:07:30F ormatting of this note might be different from the original.Pt returned call. Pt notified of payment amount. 84445-3Itlhawlfi encounter SakeSV0711-84-25Y89:08:00Telephone encounter NoteTXT1.2.840.759329.1.13.104.2.7.2.67915 9|[id number] for patient etov96225-2ZjjaNECXKLPWMBSWgiouqzmo C-CDA narrative [id number] R [address] DwaiFcopalkcwLbqbzeipqESGH4192880538KCHHXO JMAQJGHJTRKCMGCX1575-50-51B33:08:001.2.840 .165097.1.72.3.15|1.2.840.685296.1.13.104. 2.7.2.727879_[id number] [facility] 14:56:55 TLk6WYWlLhqQruo96RGGuSodeYz8B9bkxSUO19SM 9s VansYtE7nQEEHDDt08iE4s0935-88-05V31:56:55F ormatting of this note might be different from the original.LVM to review estimate with pt. MyChart estimate letter also sent. 72170-0Nohozknah encounter AtvaAT6131-03-79M42:00:04Telephone encounter NoteTXT1.2.840.309810.1.13.104.2.7.2.33636 9|[id number] for patient wuel80845-2RjecHGKIUQKCCGKUbewrwrea C-CDA narrative text[id number] DLYINMYQHVUCOHKK4454-69-58L07:00:041.2.840 .663405.1.72.3.15|1.2.840.973736.1.13.104. 2.7.2.727879_[id number] [facility] 2023-05-04 14:15:02 NxhAkUQ1MzQjVs0dpzQ2CcHuJ2dvgdhA30ADmFkt U2 iulPJrkdsJstefEIZIEOEm2078-51-79X74:15:02F ormatting of this note is different from the original.Pt would like to know the OOP cost due for her upcoming apt.Please advise.Future AppointmentsDate Time Provider Department Center05/07/2023 10:00 AM Alexandria Whitmore MD [facility] AngletoPh: [phone] ([facility] [place]) 00174-1Wmekppowg encounter RdvpVY9628-28-52T86:17:34Telephone encounter NoteTXT1.2.840.786030.1.13.104.2.7.2.99969 9|[id number] for patient sakf27973-9KcttGSZNDSHJRDCMonopeoxf C-CDA narrative cotl101815351Znap Hernandez[id number] BOYVXJTQORUMZWHT5626-42-91Q32:17:341.2.840 .945815.1.72.3.15|1.2.840.688403.1.13.104. 2.7.2.727879_[id number] Nazario Moore [facility] 2022-12-01 10:19:49 Eu9WrKDoRfnHzrj3+Kq2LKR95Johz7YhcfBpgVDh PU 9QR+57ZboBuveIGKVhChXy9443-30-52D27:19:49F ormatting of this note might be different from the original.I contacted Ms. Bernstein to let her know I received her hereditary cancer testing result. 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 CHEK2 carriers are at an increased risk [...] CHEK2 pathogenic (low penetrance) variant, specifically c.470T>C (p.Uot345Rds). This result is associated with an increased risk for breast and colon cancer with specific management recommendations for these risks, although the specific risks associated with this variant are lower in comparison to other CHEK2 pathogenic variants. 2) A follow-up appointment will be scheduled for tomorrow to discuss the implications of this result for her and her family members 75487-6Ggkbhfpps encounter DwofEL2415-05-68V78:38:29Telephone encounter NoteTXT1.2.840.758217.1.13.104.2.7.2.04688 9|[id number] for patient bhle23993-8JrnfZGOFTETTFR[id number] BOFTAZPNHGXDYZTU2168-28-55G72:38:291.2.840 .310791.1.72.3.15|1.2.840.711409.1.13.104. 2.7.2.727879_[id number] [facility] 2022-11-26 11:50:52 vY1sTi068sEBBedAcP+w47J9FhfTZoIG49ftkQ7p 5I RlHa6LW7caHznGHAOayMVX2062-11-26H27:50:52F ormatting of this note might be different from the original.[facility] lab results scanned to chart. 19607-1Lmxhesngn encounter UfwcHU0804-43-45C54:51:15Telephone encounter NoteTXT1.2.840.307266.1.13.104.2.7.2.85653 9|[id number] for patient [id number] J Gomez RN[id number] SQCWVZABBVNSHVGA0462-56-17Y59:51:151.2.840 .296636.1.72.3.15|1.2.840.569597.1.13.104. 2.7.2.727879_[id number] Corrine Llanos RN [facility] 2022-11-18 10:15:00 QSU17xkYang0BsJmplMHmToJu9OHNcfDbsGK04Z/ 51 HjxT/1aWNb53brqp23PSp/2949-70-59A37:15:00F ormatting of this note is different from the original.Images from the original note were not included.Venipuncture [...] DK BLUE (S) ACD Blood Culture NIPT/NTD 36933-8Wkahs LznpTI4421-69-05W20:32:54Nurse NoteTXT1.2.840.455632.1.13.104.2.7.2.16667 [id number] for patient [id number] [address] [id number] [facility]
[2023-06-29 16:25] LABS: Absolute Eosinophils 0.2 K/uL (0-0.5); Absolute Lymphocytes (CBC) 2.2 K/uL (0.7-4.9); Absolute Monocytes 0.7 K/uL (0.1-1.3); Absolute Neutrophil 7.9 K/uL (1.8-8.0); Basophils % 0.2 % (0-1.3); Eosinophils % 1.4 % (0-4.4); Hematocrit 35.4 % (36.0-45.0); Hemoglobin 12.4 g/dL (12.0-15.0); MCH 29.7 pg (27.0-35.0); MCHC 35.1 g/dL (32.0-36.0); MCV 84.6 fL (80-100); MPV 7.1 fL (7.6-11.3); Monocytes % 6.4 % (3.3-12.3); Nucleated Red Blood Cells % 0.1 % (0-0); Platelets 276 thou/uL (152-406); RBC Red Blood Cell Count 4.18 M/uL (3.86-4.86); Red Cell Distribution Width 14.3 % (12.1-15.2)
--- NOTE | 2023-06-29 16:38 | RAD REPORT ---
EXAM DESCRIPTION: US - OB Limited - 06/29/2023 4:22 pm CLINICAL HISTORY: 4 months , seizure, eval baby Pelvic pain COMPARISON: <Comparisons> FINDINGS: Posterior placenta is present without abruption. Amniotic fluid volume is subjectively normal. Single live intrauterine fetus with femur length of 1.8 centimeters correlating to 15 weeks and 2 days. Hea rt rate 159, normal. Cervix: 3.7 cm, normal.
[2023-06-29 16:48] LABS: Anion Gap 9.3 mEq/L (5.0-15.0); Potassium 3.3 mEq/L (3.5-5.1)
[2023-06-29 17:09] LABS: Specific Gravity 1.008 (1.005-1.030); Urine Bilirubin NEGATIVE (Negative); Urine Blood Negative (Negative); Urine Clarity Clear (Clear); Urine Color Colorless (Yellow); Urine Glucose NEGATIVE (Negative); Urine Ketones NEGATIVE (Negative); Urine Microscopic Reflex YN NO UMIC; Urine Nitrite NEGATIVE (Negative); Urine Protein NEGATIVE (Negative); Urine Urobilinogen Normal (Normal); Urine pH 5.5 (5.0-7.0)
[2023-06-29] MEDS ORDERED: ONDANSETRON 4 MG/2 ML VIAL ONE (17:57)
--- NOTE | 2023-06-29 19:22 | ER ---
Nurse's Notes [facility] Name: Romy Bernstein Age: 23 yrs Sex: Female : 2000 Arrival Date: 06/29/2023 Time: 15:50 Bed 18 Private MD: Diagnosis: Epileptic seizures related to external causes, not intractable, without status epilepticus Presentation: 06/28 15:55 Chief complaint: EMS states: toned out for Seizure activity, upon arrival to ER pt is ld1 post ictal. Coronavirus screen: At this time, the client does not indicate any symptoms associated with coronavirus-19. Ebola Screen: No symptoms or risks identified at this time. Risk Assessment: Do you want to hurt yourself or someone else? Patient reports no desire to harm self or others. Onset of symptoms was June 29, 2023. 15:55 Method Of Arrival: EMS: [facility] ld1 15:55 Acuity: SERA 3 ld1 19:00 Initial Sepsis Screen: Does the patient meet any 2 criteria? No. Patient's initial vc1 sepsis screen is negative. Does the patient have a suspected source of infection? No. Patient's initial sepsis screen is negative. Triage Assessment: 15:55 General: Appears in no apparent distress. comfortable, Behavior is calm, cooperative, ld1 appropriate for age. Pain: Denies pain. EENT: No signs and/or symptoms were reported regarding the EENT system. Neuro: Level of Consciousness is awake, alert, obeys commands, Oriented to person, place, time, situation. Cardiovascular: Capillary refill < 3 seconds Patient's skin is warm and dry. Respiratory: Airway is patent Respiratory effort is even, unlabored. GI: Abdomen is round non-distended. : No signs and/or symptoms were reported regarding the genitourinary system. Derm: No signs and/or symptoms reported regarding the dermatologic system. Musculoskeletal: No signs and/or symptoms reported regarding the musculoskeletal system. Historical: - Allergies: 15:55 Keppra; ld1 15:55 Vesicare; ld1 - PMHx: 15:55 Anxiety; bladder problems; Seizures; ld1 - PSHx: 15:55 Tonsillectomy; ld1 - Immunization history:: Adult Immunizations up to date. - Infectious Disease History:: Denies. - Social history:: Smoking status: Patient denies any tobacco usage or history of. Patient/guardian denies using alcohol. - Family history:: not pertinent. - Hospitalizations: : No recent hospitalization is reported. - History obtained from: mother, EMS. Screenin:04 [facility] ED Fall Risk Assessment (Adult) History of falling in the last 3 months, ld1 including since admission No falls in past 3 months (0 pts). Abuse screen: Denies threats or abuse. Denies injuries from another. Nutritional screening: No deficits noted. Tuberculosis screening: No symptoms or risk factors identified. Assessment: 17:04 Reassessment: See triage assessment. ld1 17:04 Reassessment: Patient appears in no apparent distress at this time. No changes from ld1 previously documented assessment. Patient and/or family updated on plan of care and expected duration. Pain level reassessed. Patient is alert, oriented x 3, equal unlabored respirations, skin warm/dry/pink. 19:42 Reassessment: Patient and/or family updated on plan of care and expected duration. Pain ha1 level reassessed. Patient is alert, oriented x 3, equal unlabored respirations, skin warm/dry/pink. Patient states feeling better. Patient states symptoms have improved. Vital Signs: 16:04 BP 125 / 73; Pulse 86; Resp 18; Temp 97.5(TE); Pulse Ox 100% on R/A; Weight 89.36 kg; ld1 Height 5 ft. 4 in. ; Pain 0/10; 17:04 BP 124 / 71; Pulse 80; Resp 18; Pulse Ox 100% on R/A; ld1 18:40 BP 118 / 68; Pulse 77; Resp 18; Pulse Ox 100% on R/A; ld1 19:42 BP 102 / 69; Pulse 74; Resp 17; Pulse Ox 99% on R/A; ha1 16:04 Body Mass Index 33.81 (89.36 kg, 162.56 cm) ld1 16:04 Pain Scale: Adult ld1 Ishan Coma Score: 15:55 Eye Response: spontaneous(4). Motor Response: localizes pain(5). Verbal Response: ld1 confused(4). Total: 13. ED Course: 15:55 Patient arrived in ED. ld1 15:55 Arm band placed on right wrist. ld1 15:56 Triage completed. ld1 15:57 Guerra, Katie, RN is Primary Nurse. ld1 16:00 Alek Carpenter MD is Attending Physician. rn 16:24 US OB Limited In Process Unspecified. EDMS 17:04 Patient has correct armband on for positive identification. Placed in gown. Bed in low ld1 position. Call light in reach. Side rails up X2. beer cooler on. Pulse ox on. NIBP on. Door closed. Noise minimized. Warm blanket given. 17:04 No provider procedures requiring assistance completed. ld1 19:44 Provided Education on: Follow up with neurology. vc1 19:44 IV discontinued, intact, bleeding controlled, No redness/swelling at site. Pressure vc1 dressing applied. Administered Medications: 18:05 Drug: Ondansetron IVP 4 mg IVP once; over 2 minutes Route: IVP; Site: right antecubital;ld1 Medication: 17:04 VIS not applicable for this client. ld1 Outcome: 19:21 Discharge ordered by . rn 19:44 Discharged to home ambulatory, with significant other, vc1 19:44 Condition: good 19:44 Discharge instructions given to patient, Instructed on discharge instructions, follow up and referral plans. Demonstrated understanding of instructions, follow-up care, 19:44 Patient left the ED. vc1 Signatures: Dispatcher [employer] EDHI Alek Carpenter MD MD rn Sims, Lauren, RN RN ld1 Junie Jain RN RN vc1 Jocy Ayala RN RN 1
--- NOTE | 2023-06-29 19:22 | EDPHYS ---
Physician Documentation [facility] Name: Romy Bernstein Age: 23 yrs Sex: Female : 2000 Arrival Date: 06/29/2023 Time: 15:50 Bed 18 Private MD: ED Physician Alek Carpenter HPI: 06/28 16:21 This 23 yrs old Female presents to ER via EMS with complaints of Seizure. rn 16:21 The patient presents after having a single isolated seizure. Character of seizure(s): rn Loss of consciousness: it is not known if the patient experienced loss of consciousness, Motor activity: generalized, Incontinence: none, Apnea: the patient did not experience apnea, Circulation: the patient did not experience evidence of pulse disturbance, Eye movements: are unknown. Seizure onset: just prior to arrival. Associated injury: The patient did not suffer any apparent associated injury. Current symptoms: Postictal. The patient has experienced similar episodes in the past. Patient with known seizure disorder, is approximately 4 months , supposed to be taking Keppra but noncompliant. Her neurologist has her on low-dose Keppra and told her was safest for her seizures in but mother and boyfriend state not sure if she takes her medication. No recent fever. No trauma or injury after seizure. No vaginal bleeding or complaints.. Historical: - Allergies: 15:55 Keppra; ld1 15:55 Vesicare; ld1 - PMHx: 15:55 Anxiety; bladder problems; Seizures; ld1 - PSHx: 15:55 Tonsillectomy; ld1 - Immunization history:: Adult Immunizations up to date. - Infectious Disease History:: Denies. - Social history:: Smoking status: Patient denies any tobacco usage or history of. Patient/guardian denies using alcohol. - Family history:: not pertinent. - Hospitalizations: : No recent hospitalization is reported. - History obtained from: mother, EMS. ROS: 16:21 Unable to obtain ROS due to altered mental status, Postictal, rn Exam: 16:21 Constitutional: This is a well developed, well nourished patient who is awake, alert, rn postictal, not answering questions Head/Face: Normocephalic, atraumatic. Eyes: Pupils equal round and reactive to light, extra-ocular motions intact. ENT: No oral trauma Cardiovascular: Regular rate and rhythm. No pulse deficits. Respiratory: No increased work of breathing, no retractions or nasal flaring. Abdomen/GI: Soft, non-tender Skin: Warm, dry MS/ Extremity: Pulses equal, no cyanosis. Neuro: Awake, alert, not answering questions of blinks and tracks with eyes. Withdraws from pain Vital Signs: 16:04 BP 125 / 73; Pulse 86; Resp 18; Temp 97.5(TE); Pulse Ox 100% on R/A; Weight 89.36 kg; ld1 Height 5 ft. 4 in. ; Pain 0/10; 17:04 BP 124 / 71; Pulse 80; Resp 18; Pulse Ox 100% on R/A; ld1 18:40 BP 118 / 68; Pulse 77; Resp 18; Pulse Ox 100% on R/A; ld1 19:42 BP 102 / 69; Pulse 74; Resp 17; Pulse Ox 99% on R/A; ha1 16:04 Body Mass Index 33.81 (89.36 kg, 162.56 cm) ld1 16:04 Pain Scale: Adult ld1 Ishan Coma Score: 15:55 Eye Response: spontaneous(4). Motor Response: localizes pain(5). Verbal Response: ld1 confused(4). Total: 13. MDM: 16:00 Patient medically screened. rn 19:20 Differential diagnosis: seizure. Data reviewed: vital signs, nurses notes, lab test rn result(s), and as a result, I will discharge patient. Counseling: I had a detailed discussion with the patient and/or guardian regarding the historical points, exam findings, and any diagnostic results supporting the discharge/admit diagnosis, lab results, the need for outpatient follow up, to return to the emergency department if symptoms worsen or persist or if there are any questions or concerns that arise at home. Special discussion: I discussed with the patient/guardian in detail that at this point there is no indication for admission to the hospital. It is understood, however, that if the symptoms persist or worsen the patient needs to return immediately for re-evaluation. ED course: Patient wide-awake, no longer vomiting. States not compliant with medication regularly since it makes her sleepy and can be sleepy at work. No acute finding here specifically negative urine and ultrasound of baby looks normal. Will discharge home with return precautions and urged her to take her Keppra as prescribed. 06/28 16:02 Order name: CBC with Diff; Complete Time: 16:36 rn 06/28 16:02 Order name: Urinalysis w/ reflexes; Complete Time: 17:11 rn 06/28 16:02 Order name: Basic Metabolic Panel; Complete Time: 17:11 rn 06/28 16:02 Order name: US OB Limited; Complete Time: 16:39 rn 06/28 16:02 Order name: IV Start; Complete Time: 16:04 rn 06/28 16:02 Order name: Cardiac monitoring; Complete Time: 16:04 rn 06/28 16:02 Order name: O2 Sat Monitoring; Complete Time: 16:04 rn Administered Medications: 18:05 Drug: Ondansetron IVP 4 mg IVP once; over 2 minutes Route: IVP; Site: right antecubital;ld1 Disposition Summary: 06/29/23 19:21 Discharge Ordered Notes: Location: Home rn Problem: chronic rn Symptoms: have improved rn Condition: Stable rn Diagnosis - Epileptic seizures related to external causes, not intractable, without status rn epilepticus Followup: rn - With: Private Physician - When: As needed - Reason: Recheck today's complaints, Re-evaluation by your physician Discharge Instructions: - Discharge Summary Sheet rn - Seizure, Adult rn Forms: - Medication Reconciliation Form rn - Thank You Letter rn - Antibiotic newspaper photojournalist - Prescription Opioid Use rn - Patient Portal Instructions rn - Leadership Thank You Letter rn Signatures: Dispatcher [employer] Alek Waller MD MD rn Sims, Lauren, RN RN ld1
[2023-06-30 03:07] VITALS: BP 102/69; TEMP 97.5; O2SAT 99
== END 2023-06-29 19:44 | disposition home or self-care (01) ==
LOC: ER 15:50
DX: O99.352 Diseases of the nervous system complicating pregnancy, second trimester (principal); G40.509 Epileptic seizures related to external causes, not intractable, without status epilepticus; Z3A.15 15 weeks gestation of pregnancy; Z88.8 Allergy status to other drugs, medicaments and biological substances
CPT/HCPCS: 85025; 80048; 36415; 81003; 76815; 96374; 99285; J2405

== ENCOUNTER 2023-07-15 15:51 | Emergency (ER) | payer OTHER ==
--- OUTSIDE RECORDS SUMMARY | 2023-07-15 16:11 | XMS REPORT | Continuity of Care Document ---
Author Name Unknown Address [address] [facility] [address] [place] [address] [facility] thconnect Address [address] [facility] [place] [address] Care Team Providers Care Manager Of International Name Role Phone PCP, PATIENT DOES NOT HAVE A Primary Care Physic drea Unavailable EMILIE LOPEZ Attending Clinician UnavailEMILIE Rivers Attending Clinician UnavailALEXANDRIA Sepulveda Attending Clinician Unavailable DAHLIA LEWIS Attending Clinician Unavailable Alexandria Whitmore MD Attending Clinician [phone] Doctor Unassigned, Felt Attending Clinician [place] [address], [facility] Attending Clinician Unavailable JESSE LEMOS Attending Clinician Unavailable Jesse Lemos MD Attending Clinician [phone] GUI ALY Attending Clinician Unavailable Elbert Luevano MD Attending Clinician [phone] Gui Aly PA-C Attending Clinician [phone] ROLAN CASAREZ Attending Clinician Unavailable MILAN DELCID Attending Clinician Unavailable Leslie Carreon Attending Clinician UnavailMilan Smith MD Attending Clinician [phone] Corrine Llanos RN Attending Clinician UnavailRolan Varma PA-C Attending Clinician [phone] Lab, [facility] Attending Clinician Unavailable MANNY VALLECILLO Attending Clinician Unavailable Avel ELECTRICAL INSTALLATION SUPERVISOR, Manny Attending Clinician [phone] Unknown, Attending Attending Clinician Unavailab BROOKLYN Silva Attending Clinician Unavailable Brooklyn Garduno MD Attending Clinician [phone] Liu Carlton Attending Clinician Unavailable HAYLEY CASTILLO Attending Clinician Unavailable KAREN SIDDIQUI Attending Clinician Unavailable Alena Erickson MD Attending Clinician [phone] Deep FARMWORKER ANIMAL, Roma Robledo Attending Clinician [phone] EMELY CANALES Attending Clinician Unavailable Chinmay Aly DO Attending Clinician [phone] Nurse, Tony Quevedo Attending Clinician Unavaila ALENA Moreno Attending Clinician Unavaila Karen Maria Attending Clinician [phone] Dalia Escalante MD Attending Clinician [phone] Eeg, Sapna Pedi Neuro Attending Clinician Unavaila DALIA Franklin Attending Clinician Unavailable Nurse, [facility] Attending Clinician Un available Urology, [facility] Attending Clinician Lizandro Morgan MD, Demetrius Attending Clinician [phone] Urology, Sapna Pedi Attending Clinician UnavailApryl Escobar MD Attending Clinician [phone] GUI ALY Admitting Clinician Unavailable ROLAN CASAREZ Admitting Clinician Unavailable ALEXANDRIA WHITMORE Admitting Clinician Unavailable Payers Payer Name Policy Type Policy Number Effective Date Expirati on Date Source [facility] MEDICAID [id number] 2016 00:00:00 [place] [id number] 2023 00:00:00 [facility] [id number] 2023 00:00:00 [facility] [id number] 2022 00:00:00 Problems Condition Name Condition Details Condition Category Status Onset Date Resolution Date Last Treatment Date Treating Clinician Comments Source Nausea and vomiting during prior to 22 weeks gestation Nausea and vomiting during prior to 22 weeks gestation Disease Active 2024-0 3-14 00:00: 00 [facility] High-risk in second trimester High-risk in second trimester Disease Active 0 2-15 00:00: 00 [facility] Nexplanon in place Nexplanon in place Disease Active 5-14 00:00: 00 [facility] Burning with urination Burning with urination Disease Active 5-14 00:00: 00 [facility] Chronic nonintract able headache, unspecifie d headache type Chronic nonintract able headache, unspecifie d headache type Disease Active 3-13 00:00: 00 [facility] Obesity peds (BMI >=95 percentile ) Obesity peds (BMI >=95 percentile ) Disease Active 10-08 00:00: 00 [facility] Generalize d epilepsy Generalize d epilepsy Disease [...] were done in March [facility]. 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 Disease Active 10-07 00:00: 00 [facility] Weight gain Weight gain Disease Active 10-07 00:00: 00 [facility] History of depression History of depression Disease Active 18 00:00: 00 [facility] Migraine without aura and without status migrainosu s, not intractabl e Migraine without aura and without status migrainosu s, not intractabl e Disease Active 1-08 00:00: 00 [facility] Family history of breast cancer Family history of breast cancer Disease Active 2017-03 00:00: 00 [facility] Depo-Prove ra contracept thea status Depo-Prove ra contracept thea status Disease Active 2017-03 00:00: 00 [facility] Breast asymmetry in female Breast asymmetry in female Disease Active 2017-03 00:00: 00 [facility] Asthma Asthma Disease Active [facility] Allergic rhinitis Allergic rhinitis Disease Active [facility] Family history of familial hyperchole sterolemia Family history of familial hyperchole sterolemia Disease Active [facility] Allergies, Adverse Reactions, Alerts Allergy Name Allergy Type Status Severity Reaction(s) Onset Date Inactive Date Treating Clinician Comments Source LEVETIRA CETAM DRUG INGREDI Active Other-Cmnt 2021-03 00:00: 00 [facility] Levetira cetam Propensi ty to adverse reaction s Active Other - See comments 2021-03 00:00: 00 Numb mouth, and sleepy [facility] Solifena lizabeth Succinat e Propensi ty to adverse reaction s Active Swelling 2016-03 00:00: 00 [facility] SOLIFENA LZIABETH SUCCINAT E DRUG INGREDI Active Rash 2016-03 00:00: 00 [facility] Solifena lizabeth Propensi ty to adverse reaction s Active Swelling 2011-03 00:00: 00 Per mom, after increasin g the dose to 10 mg , patient experienc ed swelling to the face. [facility] SOLIFENA LIZABETH DRUG INGREDI Active High Swelling 2011-03 00:00: 00 [facility] Social History Social Habit Start Date Stop Date Quantity Comments Source ASSERTION 2023-03-25 00:00:00 [facility] History of tobacco use Passive smoker [facility] Alcohol intake 2023-06-04 00:00:00 2023-06-04 00:00:00 Current non-drinker of alcohol (finding) [facility] History of Social function 2023-06-04 00:00:00 2023-06-04 00:00:00 [facility] Exposure to SARS-CoV-2 (event) 2022-08-01 00:00:00 2022-08-11 11:13:00 Not sure [facility] Tobacco use and exposure 2022-01-02 00:00:00 2022-01-02 00:00:00 Smokeless tobacco non-user [facility] Sex Assigned At 2000 00:00:00 2000 00:00:00 [facility] Smoking Status Start Date Stop Date Source Never smoked tobacco [facility] Medications Ordered Medication Name Filled Medication Name Start Date Stop Date Current Medication? Ordering Clinician Indication Dosage Frequency Signature (SIG) Comments Components Source levETIRAcet am 750 mg tablet 06-14 00:00: 00 Yes [id number] 750mg Take 1 tablet by mouth in the morning and 1 tablet in the evening. [facility] famotidine (PEPCID (PF)) injection 20 mg 06-03 17:15: 00 06-03 16:10 :00 No 20mg 20 mg, Slow IV Push, ONCE NOW, 1 dose, On Thu06/04/23 at 1215, STEFANIA [facility] levETIRAcet am (KEPPRA) in NACL (ISO-OS) 1,000 mg/100 mL RTU 06-03 17:00: 00 06-03 18:09 :00 No 1000mg 1,000 mg, IV Piggyback, ONCE, 1 dose, On Thu06/04/23 at 1200, Administer over 15 Minutes, 100 mL [facility] ondansetron (ZOFRAN (PF)) injection 4 mg 06-03 16:15: 00 06-03 16:10 :00 No 4mg 4 mg, Slow IV Push, ONCE, 1 dose, On Gladys 06/04/23 at 1115, STEFANIA [facility] pyridoxine, VITAMIN B-6, (VITAMIN B-6) 25 mg tablet 06-03 00:00: 00 Yes [id number] 25mg Take 1 tablet by mouth every 6 (six) hours as needed for Nausea and Vomiting (N/V). [facility] doxylamine (UNISOM, DOXYLAMINE, ) 25 mg tablet 06-03 00:00: 00 Yes [id number] 25mg Take 1 tablet by mouth at bedtime as needed for Nausea and Vomiting (N/V). [facility] metoclopram hcel HCl 10 mg tablet 06-03 00:00: 00 Yes [id number] 10mg Take 1 tablet by mouth every 6 (six) hours as needed for Nausea and Vomiting (N/V). [facility] Lactobacill us acidophilus (PROBIOTIC ORAL) 05-07 10:04: 06 Yes Take by mouth. [facility] Lactobacill us acidophilus (PROBIOTIC ORAL) 04-23 14:49: 45 Yes Take by mouth. [facility] ofloxacin 0.3 % otic drops 08-11 00:00: 00 08-19 04:59 :00 No [id number] 5[drp] Place 5 Drops in right ear in the morning and 5 Drops in the evening. Do all this for 7 days. [facility] No known medications 2021-03 13:07: 23 No No known medication s [facility] etonogestre L (NEXPLANON) implant 68 mg 2021-03 16:15: 00 01-31 15:23 :00 No [id number] 68mg [facility] No known medications 2021-03 08:48: 39 No No known medication s [facility] No known medications 2021-03 09:58: 47 No No known medication s [facility] calcium chloride 100 mg/mL (10 %) syringe 1,000 mg 2020-03 04:30: 00 01-06 03:55 :00 No 1000mg 1,000 mg, Intravenou s, ONCE, 1 dose, On 01/05/21 at 2330, STAT [facility] levETIRAcet am (KEPPRA) in NACL (ISO-OS) 1,000 mg/100 mL RTU 2020-03 03:15: 00 01-06 02:51 :00 No 1000mg 1,000 mg, IV Infusion, ONCE, 1 dose, On 01/05/21 at 2215, Administer over 15 Minutes, 100 mL [facility] NaCl 0.9% (NS) bolus infusion 1,000 mL 2020-03 03:00: 00 01-06 04:30 :00 No 1000mL at 999 mL/hr, 1,000 mL, IV Infusion, ONCE, 1 dose, On 01/05/21 at 2200, STEFANIA [facility] PNV no.95/jose francisco us fum/folic ac ( ORAL) 2020-03 23:25: 12 Yes [id number] Take by mouth. [facility] ciprofloxac in HCl 250 mg tablet 2020-03 00:00: 00 01-09 04:59 :00 No [id number] 250mg Take 1 tablet by mouth 2 (two) times daily for 3 days. [facility] fluticasone propionate 50 mcg/actuati on nasal spray 04-02 00:00: 00 01-05 00:00 :00 No [id number] 1{spray } Use 1 Exchange in each nostril daily. [facility] cetirizine 10 mg tablet 2019-03- 00:00: 00 01-05 00:00 :00 No [id number] 10mg Take 1 tablet by mouth daily. [facility] ibuprofen 600 mg tablet 2019-03 2- 00:00: 00 04-02 00:00 :00 No [id number] 600mg Take 1 tablet by mouth every 8 (eight) hours as needed for Pain (scale 4-6) (headache) . [facility] fluticasone propionate 50 mcg/actuati on nasal spray 2019-03 00:00: 00 04-02 00:00 :00 No [id number] 1{spray } Use 1 Exchange in each nostril daily. [facility] etonogestre L (NEXPLANON) implant 68 mg 2019-03 22:45: 00 01-29 21:43 :00 No 68mg [facility] topiramate (TOPAMAX) 25 mg tablet 10-11 00:00: 02-23 00:00 :00 No [id number] 25mg Take 1 tablet by mouth 2 (two) times daily. [facility] topiramate (TOPAMAX) 25 mg tablet 10-05 20:30: 28 10-05 00:00 :00 No 25mg Take 25 mg by mouth. [facility] omeprazole 20 mg capsule 10-05 00:00: 02-23 00:00 :00 No [id number] 20mg Take 1 capsule by mouth daily. [facility] topiramate (TOPAMAX) 25 mg tablet 10-05 00:00: 00 10-11 00:00 :00 No 25mg Take 1 tablet by mouth 2 (two) times daily. [facility] meclizine 25 mg tablet 09-26 00:00: 00 02-23 00:00 :00 No 25mg Take 25 mg by mouth as needed. [facility] Nitrofurant oin&Nit. Macrocryst (MACROBID) 100 mg capsule 08-07 00:00: 00 10-05 00:00 :00 No [id number] 100mg Take 1 capsule by mouth 2 (two) times daily. [facility] etonogestre l (NEXPLANON) implant 68 mg 08-03 20:45: 00 08-03 19:36 :00 No 68mg [facility] norelgestro min-ethinyl estradiol 150-35 mcg/24 hr patch 06-14 00:00: 00 08-03 00:00 :00 No [id number] 1{patch } Apply 1 Patch to skin weekly. [facility] ibuprofen 600 mg tablet 05-22 00:00: 00 02-23 00:00 :00 No [id number] 600mg Take 1 tablet by mouth every 8 (eight) hours as needed for Pain (scale 4-6) (headache) . [facility] medroxyPROG ESTERone (DEPO-PROVE RA) injection 150 mg 05-16 23:00: 00 05-16 21:50 :00 No 150mg [facility] oxybutynin chloride 5 mg tablet 05-03 00:00: 00 10-05 00:00 :00 No [id number] 5mg Take 1 tablet by mouth 2 (two) times daily. [facility] polyethylen e glycol (MIRALAX) 17 gram/dose powder 2018-03 00:00: 00 04-02 00:00 :00 No [id number] 1/2 cap twice daily [facility] medroxyPROG ESTERone (DEPO-PROVE RA) injection 150 mg 11-11 15:00: 00 11-11 13:54 :00 No [id number] 150mg [facility] zonisamide 100 mg capsule 412 00:00: 00 05-03 00:00 :00 No [id number] 200mg Take 2 capsules by mouth daily. [facility] medroxyPROG ESTERone (DEPO-PROVE RA) injection 150 mg 2017-03 024 15:45: 00 06-14 15:23 :36 No 150mg [facility] Immunizations Ordered Immunization Name Filled Immunization Name Date Status Comments Source SARS-COV-2 COVID-19 PFIZER VACCINE 2020-07-06 00:00:00 Completed [facility] SARS-COV-2 COVID-19 PFIZER VACCINE 2020-07-06 00:00:00 Completed [facility] SARS-COV-2 COVID-19 PFIZER VACCINE 2020-07-06 00:00:00 Completed [facility] SARS-COV-2 COVID-19 PFIZER VACCINE 2020-07-06 00:00:00 Completed [facility] SARS-COV-2 COVID-19 PFIZER VACCINE 2020-07-06 00:00:00 Completed [facility] SARS-COV-2 COVID-19 PFIZER VACCINE 2020-07-06 00:00:00 Completed [facility] SARS-COV-2 COVID-19 PFIZER VACCINE 2020-07-06 00:00:00 Completed [facility] SARS-COV-2 COVID-19 PFIZER VACCINE 2020-07-06 00:00:00 Completed [facility] SARS-COV-2 COVID-19 PFIZER VACCINE 2020-07-06 00:00:00 Completed [facility] SARS-COV-2 COVID-19 PFIZER VACCINE 2020-07-06 00:00:00 Completed [facility] SARS-COV-2 COVID-19 PFIZER VACCINE 2020-07-06 00:00:00 Completed [facility] SARS-COV-2 COVID-19 PFIZER VACCINE 2020-07-06 00:00:00 Completed [facility] SARS-COV-2 COVID-19 PFIZER VACCINE 2020-07-06 00:00:00 Completed [facility] SARS-COV-2 COVID-19 PFIZER VACCINE 2020-07-06 00:00:00 Completed [facility] SARS-COV-2 COVID-19 PFIZER VACCINE 2020-07-06 00:00:00 Completed [facility] SARS-COV-2 COVID-19 PFIZER VACCINE 2020-07-06 00:00:00 Completed [facility] SARS-COV-2 COVID-19 PFIZER VACCINE 2020-07-06 00:00:00 Completed [facility] SARS-COV-2 COVID-19 PFIZER VACCINE 2020-07-06 00:00:00 Completed [facility] SARS-COV-2 COVID-19 PFIZER VACCINE 2020-07-06 00:00:00 Completed [facility] SARS-COV-2 COVID-19 PFIZER VACCINE 2020-07-06 00:00:00 Completed [facility] SARS-COV-2 COVID-19 PFIZER VACCINE 2020-07-06 00:00:00 Completed [facility] SARS-COV-2 COVID-19 PFIZER VACCINE 2020-07-06 00:00:00 Completed [facility] SARS-COV-2 COVID-19 PFIZER VACCINE 2020-07-06 00:00:00 Completed [facility] SARS-COV-2 COVID-19 PFIZER VACCINE 2020-07-06 00:00:00 Completed [facility] SARS-COV-2 COVID-19 PFIZER VACCINE 2020-07-06 00:00:00 Completed [facility] SARS-COV-2 COVID-19 PFIZER VACCINE 2020-07-06 00:00:00 Completed [facility] SARS-COV-2 COVID-19 PFIZER VACCINE 2020-07-06 00:00:00 Completed [facility] SARS-COV-2 COVID-19 PFIZER VACCINE 2020-07-06 00:00:00 Completed [facility] SARS-COV-2 COVID-19 PFIZER VACCINE 2020-07-06 00:00:00 Completed [facility] SARS-COV-2 COVID-19 PFIZER VACCINE 2020-07-06 00:00:00 Completed [facility] SARS-COV-2 COVID-19 PFIZER VACCINE 2020-07-06 00:00:00 Completed [facility] SARS-COV-2 COVID-19 PFIZER VACCINE 2020-07-06 00:00:00 Completed [facility] SARS-COV-2 COVID-19 PFIZER VACCINE 2020-07-06 00:00:00 Completed [facility] SARS-COV-2 COVID-19 PFIZER VACCINE 2020-07-06 00:00:00 Completed [facility] SARS-COV-2 COVID-19 PFIZER VACCINE 2020-07-06 00:00:00 Completed [facility] SARS-COV-2 COVID-19 PFIZER VACCINE 2020-07-06 00:00:00 Completed [facility] SARS-COV-2 COVID-19 PFIZER VACCINE 2020-07-06 00:00:00 Completed [facility] SARS-COV-2 COVID-19 PFIZER VACCINE 2020-07-06 00:00:00 Completed [facility] SARS-COV-2 COVID-19 PFIZER VACCINE 2020-07-06 00:00:00 Completed [facility] SARS-COV-2 COVID-19 PFIZER VACCINE 2020-06-15 00:00:00 Completed [facility] SARS-COV-2 COVID-19 PFIZER VACCINE 2020-06-15 00:00:00 Completed [facility] SARS-COV-2 COVID-19 PFIZER VACCINE 2020-06-15 00:00:00 Completed [facility] SARS-COV-2 COVID-19 PFIZER VACCINE 2020-06-15 00:00:00 Completed [facility] SARS-COV-2 COVID-19 PFIZER VACCINE 2020-06-15 00:00:00 Completed [facility] SARS-COV-2 COVID-19 PFIZER VACCINE 2020-06-15 00:00:00 Completed [facility] SARS-COV-2 COVID-19 PFIZER VACCINE 2020-06-15 00:00:00 Completed [facility] SARS-COV-2 COVID-19 PFIZER VACCINE 2020-06-15 00:00:00 Completed [facility] SARS-COV-2 COVID-19 PFIZER VACCINE 2020-06-15 00:00:00 Completed [facility] SARS-COV-2 COVID-19 PFIZER VACCINE 2020-06-15 00:00:00 Completed [facility] SARS-COV-2 COVID-19 PFIZER VACCINE 2020-06-15 00:00:00 Completed [facility] SARS-COV-2 COVID-19 PFIZER VACCINE 2020-06-15 00:00:00 Completed [facility] SARS-COV-2 COVID-19 PFIZER VACCINE 2020-06-15 00:00:00 Completed [facility] SARS-COV-2 COVID-19 PFIZER VACCINE 2020-06-15 00:00:00 Completed [facility] SARS-COV-2 COVID-19 PFIZER VACCINE 2020-06-15 00:00:00 Completed [facility] SARS-COV-2 COVID-19 PFIZER VACCINE 2020-06-15 00:00:00 Completed [facility] SARS-COV-2 COVID-19 PFIZER VACCINE 2020-06-15 00:00:00 Completed [facility] SARS-COV-2 COVID-19 PFIZER VACCINE 2020-06-15 00:00:00 Completed [facility] SARS-COV-2 COVID-19 PFIZER VACCINE 2020-06-15 00:00:00 Completed [facility] SARS-COV-2 COVID-19 PFIZER VACCINE 2020-06-15 00:00:00 Completed [facility] SARS-COV-2 COVID-19 PFIZER VACCINE 2020-06-15 00:00:00 Completed [facility] SARS-COV-2 COVID-19 PFIZER VACCINE 2020-06-15 00:00:00 Completed [facility] SARS-COV-2 COVID-19 PFIZER VACCINE 2020-06-15 00:00:00 Completed [facility] SARS-COV-2 COVID-19 PFIZER VACCINE 2020-06-15 00:00:00 Completed [facility] SARS-COV-2 COVID-19 PFIZER VACCINE 2020-06-15 00:00:00 Completed [facility] SARS-COV-2 COVID-19 PFIZER VACCINE 2020-06-15 00:00:00 Completed [facility] SARS-COV-2 COVID-19 PFIZER VACCINE 2020-06-15 00:00:00 Completed [facility] SARS-COV-2 COVID-19 PFIZER VACCINE 2020-06-15 00:00:00 Completed [facility] SARS-COV-2 COVID-19 PFIZER VACCINE 2020-06-15 00:00:00 Completed [facility] SARS-COV-2 COVID-19 PFIZER VACCINE 2020-06-15 00:00:00 Completed [facility] SARS-COV-2 COVID-19 PFIZER VACCINE 2020-06-15 00:00:00 Completed [facility] SARS-COV-2 COVID-19 PFIZER VACCINE 2020-06-15 00:00:00 Completed [facility] SARS-COV-2 COVID-19 PFIZER VACCINE 2020-06-15 00:00:00 Completed [facility] SARS-COV-2 COVID-19 PFIZER VACCINE 2020-06-15 00:00:00 Completed [facility] SARS-COV-2 COVID-19 PFIZER VACCINE 2020-06-15 00:00:00 Completed [facility] SARS-COV-2 COVID-19 PFIZER VACCINE 2020-06-15 00:00:00 Completed [facility] SARS-COV-2 COVID-19 PFIZER VACCINE 2020-06-15 00:00:00 Completed [facility] SARS-COV-2 COVID-19 PFIZER VACCINE 2020-06-15 00:00:00 Completed [facility] SARS-COV-2 COVID-19 PFIZER VACCINE 2020-06-15 00:00:00 Completed [facility] Meningococcal B, OMV 2020-04-16 00:00:00 Completed [facility] Meningococcal B, OMV 2020-04-16 00:00:00 Completed [facility] Meningococcal B, OMV 2020-04-16 00:00:00 Completed [facility] Meningococcal B, OMV 2020-04-16 00:00:00 Completed [facility] Meningococcal B, OMV 2020-04-16 00:00:00 Completed [facility] Meningococcal B, OMV 2020-04-16 00:00:00 Completed [facility] Meningococcal B, OMV 2020-04-16 00:00:00 Completed [facility] Meningococcal B, OMV 2020-04-16 00:00:00 Completed [facility] Meningococcal B, OMV 2020-04-16 00:00:00 Completed [facility] Meningococcal B, OMV 2020-04-16 00:00:00 Completed [facility] Meningococcal B, OMV 2020-04-16 00:00:00 Completed [facility] Meningococcal B, OMV 2020-04-16 00:00:00 Completed [facility] Meningococcal B, OMV 2020-04-16 00:00:00 Completed [facility] Meningococcal B, OMV 2020-04-16 00:00:00 Completed [facility] Meningococcal B, OMV 2020-04-16 00:00:00 Completed [facility] Meningococcal B, OMV 2020-04-16 00:00:00 Completed [facility] Meningococcal B, OMV 2020-04-16 00:00:00 Completed [facility] Meningococcal B, OMV 2020-04-16 00:00:00 Completed [facility] Meningococcal B, OMV 2020-04-16 00:00:00 Completed [facility] Meningococcal B, OMV 2020-04-16 00:00:00 Completed [facility] Meningococcal B, OMV 2020-04-16 00:00:00 Completed [facility] Meningococcal B, OMV 2020-04-16 00:00:00 Completed [facility] Meningococcal B, OMV 2020-04-16 00:00:00 Completed [facility] Meningococcal B, OMV 2020-04-16 00:00:00 Completed [facility] Meningococcal B, OMV 2020-04-16 00:00:00 Completed [facility] Meningococcal B, OMV 2020-04-16 00:00:00 Completed [facility] Meningococcal B, OMV 2020-04-16 00:00:00 Completed [facility] Meningococcal B, OMV 2020-04-16 00:00:00 Completed [facility] Meningococcal B, OMV 2020-04-16 00:00:00 Completed [facility] Meningococcal B, OMV 2020-04-16 00:00:00 Completed [facility] Meningococcal B, OMV 2020-04-16 00:00:00 Completed [facility] Meningococcal B, OMV 2020-04-16 00:00:00 Completed [facility] Meningococcal B, OMV 2020-04-16 00:00:00 Completed [facility] Meningococcal B, OMV 2020-04-16 00:00:00 Completed [facility] Meningococcal B, OMV 2020-04-16 00:00:00 Completed [facility] Meningococcal B, OMV 2020-04-16 00:00:00 Completed [facility] Meningococcal B, OMV 2020-04-16 00:00:00 Completed [facility] Meningococcal B, OMV 2020-04-16 00:00:00 Completed [facility] Meningococcal B, OMV 2020-04-16 00:00:00 Completed [facility] Meningococcal B, OMV 2020-04-16 00:00:00 Completed [facility] Meningococcal B, OMV 2020-04-16 00:00:00 Completed [facility] Meningococcal B, OMV 2020-04-16 00:00:00 Completed [facility] Meningococcal B, OMV 2020-04-16 00:00:00 Completed [facility] Meningococcal Polysaccharide (groups A, C, Y and W-135) conjugate vaccine (MCV4P) 2018-10-07 00:00:00 Completed [facility] Meningococcal B, Recombinant 2018-10-07 00:00:00 Completed [facility] Meningococcal Polysaccharide (groups A, C, Y and W-135) conjugate vaccine (MCV4P) 2018-10-07 00:00:00 Completed [facility] Meningococcal B, Recombinant 2018-10-07 00:00:00 Completed [facility] Meningococcal Polysaccharide (groups A, C, Y and W-135) conjugate vaccine (MCV4P) 2018-10-07 00:00:00 Completed [facility] Meningococcal B, Recombinant 2018-10-07 00:00:00 Completed [facility] Meningococcal Polysaccharide (groups A, C, Y and W-135) conjugate vaccine (MCV4P) 2018-10-07 00:00:00 Completed [facility] Meningococcal B, Recombinant 2018-10-07 00:00:00 Completed [facility] Meningococcal Polysaccharide (groups A, C, Y and W-135) conjugate vaccine (MCV4P) 2018-10-07 00:00:00 Completed [facility] Meningococcal B, Recombinant 2018-10-07 00:00:00 Completed [facility] Meningococcal Polysaccharide (groups A, C, Y and W-135) conjugate vaccine (MCV4P) 2018-10-07 00:00:00 Completed [facility] Meningococcal B, Recombinant 2018-10-07 00:00:00 Completed [facility] Meningococcal Polysaccharide (groups A, C, Y and W-135) conjugate vaccine (MCV4P) 2018-10-07 00:00:00 Completed [facility] Meningococcal B, Recombinant 2018-10-07 00:00:00 Completed [facility] Meningococcal Polysaccharide (groups A, C, Y and W-135) conjugate vaccine (MCV4P) 2018-10-07 00:00:00 Completed [facility] Meningococcal B, Recombinant 2018-10-07 00:00:00 Completed [facility] Meningococcal Polysaccharide (groups A, C, Y and W-135) conjugate vaccine (MCV4P) 2018-10-07 00:00:00 Completed [facility] Meningococcal B, Recombinant 2018-10-07 00:00:00 Completed [facility] Meningococcal Polysaccharide (groups A, C, Y and W-135) conjugate vaccine (MCV4P) 2018-10-07 00:00:00 Completed [facility] Meningococcal B, Recombinant 2018-10-07 00:00:00 Completed [facility] Meningococcal Polysaccharide (groups A, C, Y and W-135) conjugate vaccine (MCV4P) 2018-10-07 00:00:00 Completed [facility] Meningococcal B, Recombinant 2018-10-07 00:00:00 Completed [facility] Meningococcal Polysaccharide (groups A, C, Y and W-135) conjugate vaccine (MCV4P) 2018-10-07 00:00:00 Completed [facility] Meningococcal B, Recombinant 2018-10-07 00:00:00 Completed [facility] Meningococcal Polysaccharide (groups A, C, Y and W-135) conjugate vaccine (MCV4P) 2018-10-07 00:00:00 Completed [facility] Meningococcal B, Recombinant 2018-10-07 00:00:00 Completed [facility] Meningococcal Polysaccharide (groups A, C, Y and W-135) conjugate vaccine (MCV4P) 2018-10-07 00:00:00 Completed [facility] Meningococcal B, Recombinant 2018-10-07 00:00:00 Completed [facility] Meningococcal Polysaccharide (groups A, C, Y and W-135) conjugate vaccine (MCV4P) 2018-10-07 00:00:00 Completed [facility] Meningococcal Polysaccharide (groups A, C, Y and W-135) conjugate vaccine (MCV4P) 2018-10-07 00:00:00 Completed [facility] Meningococcal B, Recombinant 2018-10-07 00:00:00 Completed [facility] Meningococcal B, Recombinant 2018-10-07 00:00:00 Completed [facility] Meningococcal Polysaccharide (groups A, C, Y and W-135) conjugate vaccine (MCV4P) 2018-10-07 00:00:00 Completed [facility] Meningococcal B, Recombinant 2018-10-07 00:00:00 Completed [facility] Meningococcal Polysaccharide (groups A, C, Y and W-135) conjugate vaccine (MCV4P) 2018-10-07 00:00:00 Completed [facility] Meningococcal B, Recombinant 2018-10-07 00:00:00 Completed [facility] Meningococcal Polysaccharide (groups A, C, Y and W-135) conjugate vaccine (MCV4P) 2018-10-07 00:00:00 Completed [facility] Meningococcal B, Recombinant 2018-10-07 00:00:00 Completed [facility] Meningococcal Polysaccharide (groups A, C, Y and W-135) conjugate vaccine (MCV4P) 2018-10-07 00:00:00 Completed [facility] Meningococcal B, Recombinant 2018-10-07 00:00:00 Completed [facility] Meningococcal Polysaccharide (groups A, C, Y and W-135) conjugate vaccine (MCV4P) 2018-10-07 00:00:00 Completed [facility] Meningococcal B, Recombinant 2018-10-07 00:00:00 Completed [facility] Meningococcal Polysaccharide (groups A, C, Y and W-135) conjugate vaccine (MCV4P) 2018-10-07 00:00:00 Completed [facility] Meningococcal B, Recombinant 2018-10-07 00:00:00 Completed [facility] Meningococcal Polysaccharide (groups A, C, Y and W-135) conjugate vaccine (MCV4P) 2018-10-07 00:00:00 Completed [facility] Meningococcal B, Recombinant 2018-10-07 00:00:00 Completed [facility] Meningococcal Polysaccharide (groups A, C, Y and W-135) conjugate vaccine (MCV4P) 2018-10-07 00:00:00 Completed [facility] Meningococcal B, Recombinant 2018-10-07 00:00:00 Completed [facility] Meningococcal Polysaccharide (groups A, C, Y and W-135) conjugate vaccine (MCV4P) 2018-10-07 00:00:00 Completed [facility] Meningococcal B, Recombinant 2018-10-07 00:00:00 Completed [facility] Meningococcal Polysaccharide (groups A, C, Y and W-135) conjugate vaccine (MCV4P) 2018-10-07 00:00:00 Completed [facility] Meningococcal B, Recombinant 2018-10-07 00:00:00 Completed [facility] Meningococcal Polysaccharide (groups A, C, Y and W-135) conjugate vaccine (MCV4P) 2018-10-07 00:00:00 Completed [facility] Meningococcal B, Recombinant 2018-10-07 00:00:00 Completed [facility] Meningococcal Polysaccharide (groups A, C, Y and W-135) conjugate vaccine (MCV4P) 2018-10-07 00:00:00 Completed [facility] Meningococcal B, Recombinant 2018-10-07 00:00:00 Completed [facility] Meningococcal Polysaccharide (groups A, C, Y and W-135) conjugate vaccine (MCV4P) 2018-10-07 00:00:00 Completed [facility] Meningococcal B, Recombinant 2018-10-07 00:00:00 Completed [facility] Meningococcal Polysaccharide (groups A, C, Y and W-135) conjugate vaccine (MCV4P) 2018-10-07 00:00:00 Completed [facility] Meningococcal B, Recombinant 2018-10-07 00:00:00 Completed [facility] Meningococcal Polysaccharide (groups A, C, Y and W-135) conjugate vaccine (MCV4P) 2018-10-07 00:00:00 Completed [facility] Meningococcal B, Recombinant 2018-10-07 00:00:00 Completed [facility] Meningococcal Polysaccharide (groups A, C, Y and W-135) conjugate vaccine (MCV4P) 2018-10-07 00:00:00 Completed [facility] Meningococcal B, Recombinant 2018-10-07 00:00:00 Completed [facility] Meningococcal Polysaccharide (groups A, C, Y and W-135) conjugate vaccine (MCV4P) 2018-10-07 00:00:00 Completed [facility] Meningococcal B, Recombinant 2018-10-07 00:00:00 Completed [facility] Meningococcal Polysaccharide (groups A, C, Y and W-135) conjugate vaccine (MCV4P) 2018-10-07 00:00:00 Completed [facility] Meningococcal B, Recombinant 2018-10-07 00:00:00 Completed [facility] Meningococcal Polysaccharide (groups A, C, Y and W-135) conjugate vaccine (MCV4P) 2018-10-07 00:00:00 Completed [facility] Meningococcal B, Recombinant 2018-10-07 00:00:00 Completed [facility] Meningococcal Polysaccharide (groups A, C, Y and W-135) conjugate vaccine (MCV4P) 2018-10-07 00:00:00 Completed [facility] Meningococcal B, Recombinant 2018-10-07 00:00:00 Completed [facility] Meningococcal Polysaccharide (groups A, C, Y and W-135) conjugate vaccine (MCV4P) 2018-10-07 00:00:00 Completed [facility] Meningococcal B, Recombinant 2018-10-07 00:00:00 Completed [facility] Meningococcal Polysaccharide (groups A, C, Y and W-135) conjugate vaccine (MCV4P) 2018-10-07 00:00:00 Completed [facility] Meningococcal B, Recombinant 2018-10-07 00:00:00 Completed [facility] Meningococcal Polysaccharide (groups A, C, Y and W-135) conjugate vaccine (MCV4P) 2018-10-07 00:00:00 Completed [facility] Meningococcal B, Recombinant 2018-10-07 00:00:00 Completed [facility] Meningococcal Polysaccharide (groups A, C, Y and W-135) conjugate vaccine (MCV4P) 2018-10-07 00:00:00 Completed [facility] Meningococcal B, Recombinant 2018-10-07 00:00:00 Completed [facility] Meningococcal Polysaccharide (groups A, C, Y and W-135) conjugate vaccine (MCV4P) 2018-10-07 00:00:00 Completed [facility] Meningococcal B, Recombinant 2018-10-07 00:00:00 Completed [facility] Meningococcal Polysaccharide (groups A, C, Y and W-135) conjugate vaccine (MCV4P) 2018-10-07 00:00:00 Completed [facility] Meningococcal B, Recombinant 2018-10-07 00:00:00 Completed [facility] Meningococcal Polysaccharide (groups A, C, Y and W-135) conjugate vaccine (MCV4P) 2018-10-07 00:00:00 Completed [facility] Meningococcal B, Recombinant 2018-10-07 00:00:00 Completed [facility] Meningococcal Polysaccharide (groups A, C, Y and W-135) conjugate vaccine (MCV4P) 2018-10-07 00:00:00 Completed [facility] Meningococcal B, Recombinant 2018-10-07 00:00:00 Completed [facility] Meningococcal Polysaccharide (groups A, C, Y and W-135) conjugate vaccine (MCV4P) 2018-10-07 00:00:00 Completed [facility] Meningococcal B, Recombinant 2018-10-07 00:00:00 Completed [facility] Meningococcal Polysaccharide (groups A, C, Y and W-135) conjugate vaccine (MCV4P) 2018-10-07 00:00:00 Completed [facility] Meningococcal B, Recombinant 2018-10-07 00:00:00 Completed [facility] Meningococcal Polysaccharide (groups A, C, Y and W-135) conjugate vaccine (MCV4P) 2018-10-07 00:00:00 Completed [facility] Meningococcal B, Recombinant 2018-10-07 00:00:00 Completed [facility] Meningococcal Polysaccharide (groups A, C, Y and W-135) conjugate vaccine (MCV4P) 2018-10-07 00:00:00 Completed [facility] Meningococcal B, Recombinant 2018-10-07 00:00:00 Completed [facility] Meningococcal Polysaccharide (groups A, C, Y and W-135) conjugate vaccine (MCV4P) 2018-10-07 00:00:00 Completed [facility] Meningococcal B, Recombinant 2018-10-07 00:00:00 Completed [facility] Meningococcal Polysaccharide (groups A, C, Y and W-135) conjugate vaccine (MCV4P) 2018-10-07 00:00:00 Completed [facility] Meningococcal B, Recombinant 2018-10-07 00:00:00 Completed [facility] Meningococcal Polysaccharide (groups A, C, Y and W-135) conjugate vaccine (MCV4P) 2018-10-07 00:00:00 Completed [facility] Meningococcal B, Recombinant 2018-10-07 00:00:00 Completed [facility] Meningococcal Polysaccharide (groups A, C, Y and W-135) conjugate vaccine (MCV4P) 2018-10-07 00:00:00 Completed [facility] Meningococcal B, Recombinant 2018-10-07 00:00:00 Completed [facility] Meningococcal Polysaccharide (groups A, C, Y and W-135) conjugate vaccine (MCV4P) 2018-10-07 00:00:00 Completed [facility] Meningococcal Polysaccharide (groups A, C, Y and W-135) conjugate vaccine (MCV4P) 2018-10-07 00:00:00 Completed [facility] Meningococcal B, Recombinant 2018-10-07 00:00:00 Completed [facility] Meningococcal B, Recombinant 2018-10-07 00:00:00 Completed [facility] Meningococcal Polysaccharide (groups A, C, Y and W-135) conjugate vaccine (MCV4P) 2018-10-07 00:00:00 Completed [facility] Meningococcal B, Recombinant 2018-10-07 00:00:00 Completed [facility] Meningococcal Polysaccharide (groups A, C, Y and W-135) conjugate vaccine (MCV4P) 2018-10-07 00:00:00 Completed [facility] Meningococcal B, Recombinant 2018-10-07 00:00:00 Completed [facility] Meningococcal Polysaccharide (groups A, C, Y and W-135) conjugate vaccine (MCV4P) 2018-10-07 00:00:00 Completed [facility] Meningococcal B, Recombinant 2018-10-07 00:00:00 Completed [facility] Meningococcal Polysaccharide (groups A, C, Y and W-135) conjugate vaccine (MCV4P) 2018-10-07 00:00:00 Completed [facility] Meningococcal B, Recombinant 2018-10-07 00:00:00 Completed [facility] Meningococcal Polysaccharide (groups A, C, Y and W-135) conjugate vaccine (MCV4P) 2018-10-07 00:00:00 Completed [facility] Meningococcal B, Recombinant 2018-10-07 00:00:00 Completed [facility] Meningococcal Polysaccharide (groups A, C, Y and W-135) conjugate vaccine (MCV4P) 2018-10-07 00:00:00 Completed [facility] Meningococcal B, Recombinant 2018-10-07 00:00:00 Completed [facility] Meningococcal Polysaccharide (groups A, C, Y and W-135) conjugate vaccine (MCV4P) 2018-10-07 00:00:00 Completed [facility] Meningococcal B, Recombinant 2018-10-07 00:00:00 Completed [facility] Meningococcal Polysaccharide (groups A, C, Y and W-135) conjugate vaccine (MCV4P) 2018-10-07 00:00:00 Completed [facility] Meningococcal B, Recombinant 2018-10-07 00:00:00 Completed [facility] Meningococcal Polysaccharide (groups A, C, Y and W-135) conjugate vaccine (MCV4P) 2018-10-07 00:00:00 Completed [facility] Meningococcal B, Recombinant 2018-10-07 00:00:00 Completed [facility] Meningococcal Polysaccharide (groups A, C, Y and W-135) conjugate vaccine (MCV4P) 2018-10-07 00:00:00 Completed [facility] Meningococcal B, Recombinant 2018-10-07 00:00:00 Completed [facility] Meningococcal Polysaccharide (groups A, C, Y and W-135) conjugate vaccine (MCV4P) 2018-10-07 00:00:00 Completed [facility] Meningococcal B, Recombinant 2018-10-07 00:00:00 Completed [facility] Meningococcal Polysaccharide (groups A, C, Y and W-135) conjugate vaccine (MCV4P) 2018-10-07 00:00:00 Completed [facility] Meningococcal B, Recombinant 2018-10-07 00:00:00 Completed [facility] Meningococcal Polysaccharide (groups A, C, Y and W-135) conjugate vaccine (MCV4P) 2018-10-07 00:00:00 Completed [facility] Meningococcal B, Recombinant 2018-10-07 00:00:00 Completed [facility] Meningococcal Polysaccharide (groups A, C, Y and W-135) conjugate vaccine (MCV4P) 2018-10-07 00:00:00 Completed [facility] Meningococcal B, Recombinant 2018-10-07 00:00:00 Completed [facility] Meningococcal Polysaccharide (groups A, C, Y and W-135) conjugate vaccine (MCV4P) 2018-10-07 00:00:00 Completed [facility] Meningococcal B, Recombinant 2018-10-07 00:00:00 Completed [facility] Meningococcal Polysaccharide (groups A, C, Y and W-135) conjugate vaccine (MCV4P) 2018-10-07 00:00:00 Completed [facility] Meningococcal B, Recombinant 2018-10-07 00:00:00 Completed [facility] Meningococcal Polysaccharide (groups A, C, Y and W-135) conjugate vaccine (MCV4P) 2018-10-07 00:00:00 Completed [facility] Meningococcal B, Recombinant 2018-10-07 00:00:00 Completed [facility] Meningococcal Polysaccharide (groups A, C, Y and W-135) conjugate vaccine (MCV4P) 2018-10-07 00:00:00 Completed [facility] Meningococcal B, Recombinant 2018-10-07 00:00:00 Completed [facility] Meningococcal Polysaccharide (groups A, C, Y and W-135) conjugate vaccine (MCV4P) 2018-10-07 00:00:00 Completed [facility] Meningococcal B, Recombinant 2018-10-07 00:00:00 Completed [facility] Meningococcal Polysaccharide (groups A, C, Y and W-135) conjugate vaccine (MCV4P) 2018-10-07 00:00:00 Completed [facility] Meningococcal B, Recombinant 2018-10-07 00:00:00 Completed [facility] Meningococcal Polysaccharide (groups A, C, Y and W-135) conjugate vaccine (MCV4P) 2018-10-07 00:00:00 Completed [facility] Meningococcal B, Recombinant 2018-10-07 00:00:00 Completed [facility] Meningococcal Polysaccharide (groups A, C, Y and W-135) conjugate vaccine (MCV4P) 2018-10-07 00:00:00 Completed [facility] Meningococcal B, Recombinant 2018-10-07 00:00:00 Completed [facility] Meningococcal Polysaccharide (groups A, C, Y and W-135) conjugate vaccine (MCV4P) 2018-10-07 00:00:00 Completed [facility] Meningococcal B, Recombinant 2018-10-07 00:00:00 Completed [facility] Meningococcal Polysaccharide (groups A, C, Y and W-135) conjugate vaccine (MCV4P) 2018-10-07 00:00:00 Completed [facility] Meningococcal B, Recombinant 2018-10-07 00:00:00 Completed [facility] Meningococcal Polysaccharide (groups A, C, Y and W-135) conjugate vaccine (MCV4P) 2018-10-07 00:00:00 Completed [facility] Meningococcal B, Recombinant 2018-10-07 00:00:00 Completed [facility] Meningococcal Polysaccharide (groups A, C, Y and W-135) conjugate vaccine (MCV4P) 2018-10-07 00:00:00 Completed [facility] Meningococcal B, Recombinant 2018-10-07 00:00:00 Completed [facility] Meningococcal Polysaccharide (groups A, C, Y and W-135) conjugate vaccine (MCV4P) 2018-10-07 00:00:00 Completed [facility] Meningococcal B, Recombinant 2018-10-07 00:00:00 Completed [facility] Meningococcal Polysaccharide (groups A, C, Y and W-135) conjugate vaccine (MCV4P) 2018-10-07 00:00:00 Completed [facility] Meningococcal B, Recombinant 2018-10-07 00:00:00 Completed [facility] Meningococcal Polysaccharide (groups A, C, Y and W-135) conjugate vaccine (MCV4P) 2018-10-07 00:00:00 Completed [facility] Meningococcal B, Recombinant 2018-10-07 00:00:00 Completed [facility] Meningococcal Polysaccharide (groups A, C, Y and W-135) conjugate vaccine (MCV4P) 2018-10-07 00:00:00 Completed [facility] Meningococcal B, Recombinant 2018-10-07 00:00:00 Completed [facility] Meningococcal Polysaccharide (groups A, C, Y and W-135) conjugate vaccine (MCV4P) 2018-10-07 00:00:00 Completed [facility] Meningococcal B, Recombinant 2018-10-07 00:00:00 Completed [facility] Meningococcal Polysaccharide (groups A, C, Y and W-135) conjugate vaccine (MCV4P) 2018-10-07 00:00:00 Completed [facility] Meningococcal B, Recombinant 2018-10-07 00:00:00 Completed [facility] Meningococcal Polysaccharide (groups A, C, Y and W-135) conjugate vaccine (MCV4P) 2018-10-07 00:00:00 Completed [facility] Meningococcal B, Recombinant 2018-10-07 00:00:00 Completed [facility] Meningococcal Polysaccharide (groups A, C, Y and W-135) conjugate vaccine (MCV4P) 2018-10-07 00:00:00 Completed [facility] Meningococcal B, Recombinant 2018-10-07 00:00:00 Completed [facility] Meningococcal Polysaccharide (groups A, C, Y and W-135) conjugate vaccine (MCV4P) 2018-10-07 00:00:00 Completed [facility] Meningococcal B, Recombinant 2018-10-07 00:00:00 Completed [facility] Meningococcal Polysaccharide (groups A, C, Y and W-135) conjugate vaccine (MCV4P) 2018-10-07 00:00:00 Completed [facility] Meningococcal B, Recombinant 2018-10-07 00:00:00 Completed [facility] Meningococcal Polysaccharide (groups A, C, Y and W-135) conjugate vaccine (MCV4P) 2018-10-07 00:00:00 Completed [facility] Meningococcal B, Recombinant 2018-10-07 00:00:00 Completed [facility] Meningococcal Polysaccharide (groups A, C, Y and W-135) conjugate vaccine (MCV4P) 2018-10-07 00:00:00 Completed [facility] Meningococcal B, Recombinant 2018-10-07 00:00:00 Completed [facility] Meningococcal Polysaccharide (groups A, C, Y and W-135) conjugate vaccine (MCV4P) 2018-10-07 00:00:00 Completed [facility] Meningococcal B, Recombinant 2018-10-07 00:00:00 Completed [facility] Meningococcal Polysaccharide (groups A, C, Y and W-135) conjugate vaccine (MCV4P) 2018-10-07 00:00:00 Completed [facility] Meningococcal B, Recombinant 2018-10-07 00:00:00 Completed [facility] Meningococcal Polysaccharide (groups A, C, Y and W-135) conjugate vaccine (MCV4P) 2018-10-07 00:00:00 Completed [facility] Meningococcal B, Recombinant 2018-10-07 00:00:00 Completed [facility] Meningococcal Polysaccharide (groups A, C, Y and W-135) conjugate vaccine (MCV4P) 2018-10-07 00:00:00 Completed [facility] Meningococcal B, Recombinant 2018-10-07 00:00:00 Completed [facility] Meningococcal Polysaccharide (groups A, C, Y and W-135) conjugate vaccine (MCV4P) 2018-10-07 00:00:00 Completed [facility] Meningococcal B, Recombinant 2018-10-07 00:00:00 Completed [facility] Meningococcal Polysaccharide (groups A, C, Y and W-135) conjugate vaccine (MCV4P) 2018-10-07 00:00:00 Completed [facility] Meningococcal B, Recombinant 2018-10-07 00:00:00 Completed [facility] Meningococcal Polysaccharide (groups A, C, Y and W-135) conjugate vaccine (MCV4P) 2018-10-07 00:00:00 Completed [facility] Meningococcal B, Recombinant 2018-10-07 00:00:00 Completed [facility] Meningococcal Polysaccharide (groups A, C, Y and W-135) conjugate vaccine (MCV4P) 2018-10-07 00:00:00 Completed [facility] Meningococcal B, Recombinant 2018-10-07 00:00:00 Completed [facility] Meningococcal Polysaccharide (groups A, C, Y and W-135) conjugate vaccine (MCV4P) 2018-10-07 00:00:00 Completed [facility] Meningococcal B, Recombinant 2018-10-07 00:00:00 Completed [facility] Meningococcal Polysaccharide (groups A, C, Y and W-135) conjugate vaccine (MCV4P) 2018-10-07 00:00:00 Completed [facility] Meningococcal B, Recombinant 2018-10-07 00:00:00 Completed [facility] Meningococcal Polysaccharide (groups A, C, Y and W-135) conjugate vaccine (MCV4P) 2018-10-07 00:00:00 Completed [facility] Meningococcal B, Recombinant 2018-10-07 00:00:00 Completed [facility] Influenza Virus Vaccine Quad .5 mL IM 6+ MO 2018-04-06 00:00:00 Completed [facility] Influenza Virus Vaccine Quad .5 mL IM 6+ MO 2018-04-06 00:00:00 Completed [facility] Influenza Virus Vaccine Quad .5 mL IM 6+ MO 2018-04-06 00:00:00 Completed [facility] Influenza Virus Vaccine Quad .5 mL IM 6+ MO 2018-04-06 00:00:00 Completed [facility] Influenza Virus Vaccine Quad .5 mL IM 6+ MO 2018-04-06 00:00:00 Completed [facility] Influenza Virus Vaccine Quad .5 mL IM 6+ MO 2018-04-06 00:00:00 Completed [facility] Influenza Virus Vaccine Quad .5 mL IM 6+ MO 2018-04-06 00:00:00 Completed [facility] Influenza Virus Vaccine Quad .5 mL IM 6+ MO 2018-04-06 00:00:00 Completed [facility] Influenza Virus Vaccine Quad .5 mL IM 6+ MO 2018-04-06 00:00:00 Completed [facility] Influenza Virus Vaccine Quad .5 mL IM 6+ MO 2018-04-06 00:00:00 Completed [facility] Influenza Virus Vaccine Quad .5 mL IM 6+ MO 2018-04-06 00:00:00 Completed [facility] Influenza Virus Vaccine Quad .5 mL IM 6+ MO 2018-04-06 00:00:00 Completed [facility] Influenza Virus Vaccine Quad .5 mL IM 6+ MO 2018-04-06 00:00:00 Completed [facility] Influenza Virus Vaccine Quad .5 mL IM 6+ MO 2018-04-06 00:00:00 Completed [facility] Influenza Virus Vaccine Quad .5 mL IM 6+ MO 2018-04-06 00:00:00 Completed [facility] Influenza Virus Vaccine Quad .5 mL IM 6+ MO 2018-04-06 00:00:00 Completed [facility] Influenza Virus Vaccine Quad .5 mL IM 6+ MO 2018-04-06 00:00:00 Completed [facility] Influenza Virus Vaccine Quad .5 mL IM 6+ MO 2018-04-06 00:00:00 Completed [facility] Influenza Virus Vaccine Quad .5 mL IM 6+ MO 2018-04-06 00:00:00 Completed [facility] Influenza Virus Vaccine Quad .5 mL IM 6+ MO 2018-04-06 00:00:00 Completed [facility] Influenza Virus Vaccine Quad .5 mL IM 6+ MO 2018-04-06 00:00:00 Completed [facility] Influenza Virus Vaccine Quad .5 mL IM 6+ MO 2018-04-06 00:00:00 Completed [facility] Influenza Virus Vaccine Quad .5 mL IM 6+ MO 2018-04-06 00:00:00 Completed [facility] Influenza Virus Vaccine Quad .5 mL IM 6+ MO 2018-04-06 00:00:00 Completed [facility] Influenza Virus Vaccine Quad .5 mL IM 6+ MO 2018-04-06 00:00:00 Completed [facility] Influenza Virus Vaccine Quad .5 mL IM 6+ MO 2018-04-06 00:00:00 Completed [facility] Influenza Virus Vaccine Quad .5 mL IM 6+ MO 2018-04-06 00:00:00 Completed [facility] Influenza Virus Vaccine Quad .5 mL IM 6+ MO 2018-04-06 00:00:00 Completed [facility] Influenza Virus Vaccine Quad .5 mL IM 6+ MO 2018-04-06 00:00:00 Completed [facility] Influenza Virus Vaccine Quad .5 mL IM 6+ MO 2018-04-06 00:00:00 Completed [facility] Influenza Virus Vaccine Quad .5 mL IM 6+ MO 2018-04-06 00:00:00 Completed [facility] Influenza Virus Vaccine Quad .5 mL IM 6+ MO 2018-04-06 00:00:00 Completed [facility] Influenza Virus Vaccine Quad .5 mL IM 6+ MO 2018-04-06 00:00:00 Completed [facility] Influenza Virus Vaccine Quad .5 mL IM 6+ MO 2018-04-06 00:00:00 Completed [facility] Influenza Virus Vaccine Quad .5 mL IM 6+ MO 2018-04-06 00:00:00 Completed [facility] Influenza Virus Vaccine Quad .5 mL IM 6+ MO 2018-04-06 00:00:00 Completed [facility] Influenza Virus Vaccine Quad .5 mL IM 6+ MO 2018-04-06 00:00:00 Completed [facility] Influenza Virus Vaccine Quad .5 mL IM 6+ MO 2018-04-06 00:00:00 Completed [facility] Influenza Virus Vaccine Quad .5 mL IM 6+ MO 2018-04-06 00:00:00 Completed [facility] Influenza Virus Vaccine Quad .5 mL IM 6+ MO 2018-04-06 00:00:00 Completed [facility] Influenza Virus Vaccine Quad .5 mL IM 6+ MO 2018-04-06 00:00:00 Completed [facility] Influenza Virus Vaccine Quad .5 mL IM 6+ MO 2018-04-06 00:00:00 Completed [facility] Influenza Virus Vaccine Quad .5 mL IM 6+ MO 2018-04-06 00:00:00 Completed [facility] Influenza Virus Vaccine Quad .5 mL IM 6+ MO 2018-04-06 00:00:00 Completed [facility] Influenza Virus Vaccine Quad .5 mL IM 6+ MO 2018-04-06 00:00:00 Completed [facility] Influenza Virus Vaccine Quad .5 mL IM 6+ MO 2018-04-06 00:00:00 Completed [facility] Influenza Virus Vaccine Quad .5 mL IM 6+ MO 2018-04-06 00:00:00 Completed [facility] Influenza Virus Vaccine Quad .5 mL IM 6+ MO 2018-04-06 00:00:00 Completed [facility] Influenza Virus Vaccine Quad .5 mL IM 6+ MO 2018-04-06 00:00:00 Completed [facility] Influenza Virus Vaccine Quad .5 mL IM 6+ MO 2018-04-06 00:00:00 Completed [facility] Influenza Virus Vaccine Quad .5 mL IM 6+ MO 2018-04-06 00:00:00 Completed [facility] Influenza Virus Vaccine Quad .5 mL IM 6+ MO 2018-04-06 00:00:00 Completed [facility] Influenza Virus Vaccine Quad .5 mL IM 6+ MO 2018-04-06 00:00:00 Completed [facility] Influenza Virus Vaccine Quad .5 mL IM 6+ MO 2018-04-06 00:00:00 Completed [facility] Influenza Virus Vaccine Quad .5 mL IM 6+ MO 2018-04-06 00:00:00 Completed [facility] Influenza Virus Vaccine Quad .5 mL IM 6+ MO 2018-04-06 00:00:00 Completed [facility] Influenza Virus Vaccine Quad .5 mL IM 6+ MO 2018-04-06 00:00:00 Completed [facility] Influenza Virus Vaccine Quad .5 mL IM 6+ MO 2018-04-06 00:00:00 Completed [facility] Influenza Virus Vaccine Quad .5 mL IM 6+ MO 2018-04-06 00:00:00 Completed [facility] Influenza Virus Vaccine Quad .5 mL IM 6+ MO 2018-04-06 00:00:00 Completed [facility] Influenza Virus Vaccine Quad .5 mL IM 6+ MO 2018-04-06 00:00:00 Completed [facility] Influenza Virus Vaccine Quad .5 mL IM 6+ MO 2018-04-06 00:00:00 Completed [facility] Influenza Virus Vaccine Quad .5 mL IM 6+ MO 2018-04-06 00:00:00 Completed [facility] Influenza Virus Vaccine Quad .5 mL IM 6+ MO 2018-04-06 00:00:00 Completed [facility] Influenza Virus Vaccine Quad .5 mL IM 6+ MO 2018-04-06 00:00:00 Completed [facility] Influenza Virus Vaccine Quad .5 mL IM 6+ MO 2018-04-06 00:00:00 Completed [facility] Influenza Virus Vaccine Quad .5 mL IM 6+ MO 2018-04-06 00:00:00 Completed [facility] Influenza Virus Vaccine Quad .5 mL IM 6+ MO 2018-04-06 00:00:00 Completed [facility] Influenza Virus Vaccine Quad .5 mL IM 6+ MO 2018-04-06 00:00:00 Completed [facility] Influenza Virus Vaccine Quad .5 mL IM 6+ MO 2018-04-06 00:00:00 Completed [facility] Influenza Virus Vaccine Quad .5 mL IM 6+ MO 2018-04-06 00:00:00 Completed [facility] Influenza Virus Vaccine Quad .5 mL IM 6+ MO 2018-04-06 00:00:00 Completed [facility] Influenza Virus Vaccine Quad .5 mL IM 6+ MO 2018-04-06 00:00:00 Completed [facility] Influenza Virus Vaccine Quad .5 mL IM 6+ MO 2018-04-06 00:00:00 Completed [facility] Influenza Virus Vaccine Quad .5 mL IM 6+ MO 2018-04-06 00:00:00 Completed [facility] Influenza Virus Vaccine Quad .5 mL IM 6+ MO 2018-04-06 00:00:00 Completed [facility] Influenza Virus Vaccine Quad .5 mL IM 6+ MO 2018-04-06 00:00:00 Completed [facility] Influenza Virus Vaccine Quad .5 mL IM 6+ MO 2018-04-06 00:00:00 Completed [facility] Influenza Virus Vaccine Quad .5 mL IM 6+ MO 2018-04-06 00:00:00 Completed [facility] Influenza Virus Vaccine Quad .5 mL IM 6+ MO 2018-04-06 00:00:00 Completed [facility] Influenza Virus Vaccine Quad .5 mL IM 6+ MO 2018-04-06 00:00:00 Completed [facility] Influenza Virus Vaccine Quad .5 mL IM 6+ MO 2018-04-06 00:00:00 Completed [facility] Influenza Virus Vaccine Quad .5 mL IM 6+ MO 2018-04-06 00:00:00 Completed [facility] Influenza Virus Vaccine Quad .5 mL IM 6+ MO 2018-04-06 00:00:00 Completed [facility] Influenza Virus Vaccine Quad .5 mL IM 6+ MO (FLUZONE/FLULAVAL/FL UARIX) 2018-04-06 00:00:00 Completed [facility] Influenza Virus Vaccine Quad .5 mL IM 6+ MO (FLUZONE/FLULAVAL/FL UARIX) 2018-04-06 00:00:00 Completed [facility] Influenza Virus Vaccine Quad .5 mL IM 6+ MO (FLUZONE/FLULAVAL/FL UARIX) 2018-04-06 00:00:00 Completed [facility] Influenza Virus Vaccine Quad .5 mL IM 6+ MO (FLUZONE/FLULAVAL/FL UARIX) 2018-04-06 00:00:00 Completed [facility] Influenza Virus Vaccine Quad .5 mL IM 6+ MO 2018-04-06 00:00:00 Completed [facility] Influenza Virus Vaccine Quad .5 mL IM 6+ MO 2018-04-06 00:00:00 Completed [facility] Influenza Virus Vaccine Quad .5 mL IM 6+ MO 2018-04-06 00:00:00 Completed [facility] Influenza Virus Vaccine Quad .5 mL IM 6+ MO 2018-04-06 00:00:00 Completed [facility] Influenza Virus Vaccine Quad .5 mL IM 6+ MO 2018-04-06 00:00:00 Completed [facility] Influenza Virus Vaccine Quad .5 mL IM 6+ MO 2018-04-06 00:00:00 Completed [facility] Influenza Virus Vaccine Quad .5 mL IM 6+ MO 2018-04-06 00:00:00 Completed [facility] Influenza Virus Vaccine Quad .5 mL IM 6+ MO 2018-04-06 00:00:00 Completed [facility] Influenza Virus Vaccine Quad .5 mL IM 6+ MO 2018-04-06 00:00:00 Completed [facility] Influenza Virus Vaccine Quad .5 mL IM 6+ MO 2018-04-06 00:00:00 Completed [facility] Influenza Virus Vaccine Quad .5 mL IM 6+ MO 2018-04-06 00:00:00 Completed [facility] Influenza Virus Vaccine Quad .5 mL IM 6+ MO 2018-04-06 00:00:00 Completed [facility] Influenza Virus Vaccine Quad .5 mL IM 6+ MO 2018-04-06 00:00:00 Completed [facility] Influenza Virus Vaccine Quad .5 mL IM 6+ MO 2018-04-06 00:00:00 Completed [facility] Influenza Virus Vaccine Quad .5 mL IM 6+ MO 2018-04-06 00:00:00 Completed [facility] Varicella (varivax)(chicken pox) 2013-05-05 00:00:00 Completed [facility] Varicella (varivax)(chicken pox) 2013-05-05 00:00:00 Completed [facility] Varicella (varivax)(chicken pox) 2013-05-05 00:00:00 Completed [facility] Varicella (varivax)(chicken pox) 2013-05-05 00:00:00 Completed [facility] Varicella (varivax)(chicken pox) 2013-05-05 00:00:00 Completed [facility] Varicella (varivax)(chicken pox) 2013-05-05 00:00:00 Completed [facility] Varicella (varivax)(chicken pox) 2013-05-05 00:00:00 Completed [facility] Varicella (varivax)(chicken pox) 2013-05-05 00:00:00 Completed [facility] Varicella (varivax)(chicken pox) 2013-05-05 00:00:00 Completed [facility] Varicella (varivax)(chicken pox) 2013-05-05 00:00:00 Completed [facility] Varicella (varivax)(chicken pox) 2013-05-05 00:00:00 Completed [facility] Varicella (varivax)(chicken pox) 2013-05-05 00:00:00 Completed [facility] Varicella (varivax)(chicken pox) 2013-05-05 00:00:00 Completed [facility] Varicella (varivax)(chicken pox) 2013-05-05 00:00:00 Completed [facility] Varicella (varivax)(chicken pox) 2013-05-05 00:00:00 Completed [facility] Varicella (varivax)(chicken pox) 2013-05-05 00:00:00 Completed [facility] Varicella (varivax)(chicken pox) 2013-05-05 00:00:00 Completed [facility] Varicella (varivax)(chicken pox) 2013-05-05 00:00:00 Completed [facility] Varicella (varivax)(chicken pox) 2013-05-05 00:00:00 Completed [facility] Varicella (varivax)(chicken pox) 2013-05-05 00:00:00 Completed [facility] Varicella (varivax)(chicken pox) 2013-05-05 00:00:00 Completed [facility] Varicella (varivax)(chicken pox) 2013-05-05 00:00:00 Completed [facility] Varicella (varivax)(chicken pox) 2013-05-05 00:00:00 Completed [facility] Varicella (varivax)(chicken pox) 2013-05-05 00:00:00 Completed [facility] Varicella (varivax)(chicken pox) 2013-05-05 00:00:00 Completed [facility] Varicella (varivax)(chicken pox) 2013-05-05 00:00:00 Completed [facility] Varicella (varivax)(chicken pox) 2013-05-05 00:00:00 Completed [facility] Varicella (varivax)(chicken pox) 2013-05-05 00:00:00 Completed [facility] Varicella (varivax)(chicken pox) 2013-05-05 00:00:00 Completed [facility] Varicella (varivax)(chicken pox) 2013-05-05 00:00:00 Completed [facility] Varicella (varivax)(chicken pox) 2013-05-05 00:00:00 Completed [facility] Varicella (varivax)(chicken pox) 2013-05-05 00:00:00 Completed [facility] Varicella (varivax)(chicken pox) 2013-05-05 00:00:00 Completed [facility] Varicella (varivax)(chicken pox) 2013-05-05 00:00:00 Completed [facility] Varicella (varivax)(chicken pox) 2013-05-05 00:00:00 Completed [facility] Varicella (varivax)(chicken pox) 2013-05-05 00:00:00 Completed [facility] Varicella (varivax)(chicken pox) 2013-05-05 00:00:00 Completed [facility] Varicella (varivax)(chicken pox) 2013-05-05 00:00:00 Completed [facility] Varicella (varivax)(chicken pox) 2013-05-05 00:00:00 Completed [facility] Varicella (varivax)(chicken pox) 2013-05-05 00:00:00 Completed [facility] Varicella (varivax)(chicken pox) 2013-05-05 00:00:00 Completed [facility] Varicella (varivax)(chicken pox) 2013-05-05 00:00:00 Completed [facility] Varicella (varivax)(chicken pox) 2013-05-05 00:00:00 Completed [facility] Varicella (varivax)(chicken pox) 2013-05-05 00:00:00 Completed [facility] Varicella (varivax)(chicken pox) 2013-05-05 00:00:00 Completed [facility] Varicella (varivax)(chicken pox) 2013-05-05 00:00:00 Completed [facility] Varicella (varivax)(chicken pox) 2013-05-05 00:00:00 Completed [facility] Varicella (varivax)(chicken pox) 2013-05-05 00:00:00 Completed [facility] Varicella (varivax)(chicken pox) 2013-05-05 00:00:00 Completed [facility] Varicella (varivax)(chicken pox) 2013-05-05 00:00:00 Completed [facility] Varicella (varivax)(chicken pox) 2013-05-05 00:00:00 Completed [facility] Varicella (varivax)(chicken pox) 2013-05-05 00:00:00 Completed [facility] Varicella (varivax)(chicken pox) 2013-05-05 00:00:00 Completed [facility] Varicella (varivax)(chicken pox) 2013-05-05 00:00:00 Completed [facility] Varicella (varivax)(chicken pox) 2013-05-05 00:00:00 Completed [facility] Varicella (varivax)(chicken pox) 2013-05-05 00:00:00 Completed [facility] Varicella (varivax)(chicken pox) 2013-05-05 00:00:00 Completed [facility] Varicella (varivax)(chicken pox) 2013-05-05 00:00:00 Completed [facility] Varicella (varivax)(chicken pox) 2013-05-05 00:00:00 Completed [facility] Varicella (varivax)(chicken pox) 2013-05-05 00:00:00 Completed [facility] Varicella (varivax)(chicken pox) 2013-05-05 00:00:00 Completed [facility] Varicella (varivax)(chicken pox) 2013-05-05 00:00:00 Completed [facility] Varicella (varivax)(chicken pox) 2013-05-05 00:00:00 Completed [facility] Varicella (varivax)(chicken pox) 2013-05-05 00:00:00 Completed [facility] Varicella (varivax)(chicken pox) 2013-05-05 00:00:00 Completed [facility] Varicella (varivax)(chicken pox) 2013-05-05 00:00:00 Completed [facility] Varicella (varivax)(chicken pox) 2013-05-05 00:00:00 Completed [facility] Varicella (varivax)(chicken pox) 2013-05-05 00:00:00 Completed [facility] Varicella (varivax)(chicken pox) 2013-05-05 00:00:00 Completed [facility] Varicella (varivax)(chicken pox) 2013-05-05 00:00:00 Completed [facility] Varicella (varivax)(chicken pox) 2013-05-05 00:00:00 Completed [facility] Varicella (varivax)(chicken pox) 2013-05-05 00:00:00 Completed [facility] Varicella (varivax)(chicken pox) 2013-05-05 00:00:00 Completed [facility] Varicella (varivax)(chicken pox) 2013-05-05 00:00:00 Completed [facility] Varicella (varivax)(chicken pox) 2013-05-05 00:00:00 Completed [facility] Varicella (varivax)(chicken pox) 2013-05-05 00:00:00 Completed [facility] Varicella (varivax)(chicken pox) 2013-05-05 00:00:00 Completed [facility] Varicella (varivax)(chicken pox) 2013-05-05 00:00:00 Completed [facility] Varicella (varivax)(chicken pox) 2013-05-05 00:00:00 Completed [facility] Varicella (varivax)(chicken pox) 2013-05-05 00:00:00 Completed [facility] Varicella (varivax)(chicken pox) 2013-05-05 00:00:00 Completed [facility] Varicella (varivax)(chicken pox) 2013-05-05 00:00:00 Completed [facility] Varicella (varivax)(chicken pox) 2013-05-05 00:00:00 Completed [facility] Varicella (varivax)(chicken pox) 2013-05-05 00:00:00 Completed [facility] Varicella (varivax)(chicken pox) 2013-05-05 00:00:00 Completed [facility] Varicella (varivax)(chicken pox) 2013-05-05 00:00:00 Completed [facility] Varicella (varivax)(chicken pox) 2013-05-05 00:00:00 Completed [facility] Varicella (varivax)(chicken pox) 2013-05-05 00:00:00 Completed [facility] Varicella (varivax)(chicken pox) 2013-05-05 00:00:00 Completed [facility] Varicella (varivax)(chicken pox) 2013-05-05 00:00:00 Completed [facility] Varicella (varivax)(chicken pox) 2013-05-05 00:00:00 Completed [facility] Varicella (varivax)(chicken pox) 2013-05-05 00:00:00 Completed [facility] Varicella (varivax)(chicken pox) 2013-05-05 00:00:00 Completed [facility] Varicella (varivax)(chicken pox) 2013-05-05 00:00:00 Completed [facility] Varicella (varivax)(chicken pox) 2013-05-05 00:00:00 Completed [facility] Varicella (varivax)(chicken pox) 2013-05-05 00:00:00 Completed [facility] Varicella (varivax)(chicken pox) 2013-05-05 00:00:00 Completed [facility] Varicella (varivax)(chicken pox) 2013-05-05 00:00:00 Completed [facility] Varicella (varivax)(chicken pox) 2013-05-05 00:00:00 Completed [facility] Varicella (varivax)(chicken pox) 2013-05-05 00:00:00 Completed [facility] Varicella (varivax)(chicken pox) 2013-05-05 00:00:00 Completed [facility] Varicella (varivax)(chicken pox) 2013-05-05 00:00:00 Completed [facility] Varicella (varivax)(chicken pox) 2013-05-05 00:00:00 Completed [facility] Meningococcal Polysaccharide (groups A, C, Y and W-135) conjugate vaccine (MCV4P) 2013-04-18 00:00:00 Completed [facility] Tdap 2013-04-18 00:00:00 Completed [facility] Meningococcal Polysaccharide (groups A, C, Y and W-135) conjugate vaccine (MCV4P) 2013-04-18 00:00:00 Completed [facility] Meningococcal Polysaccharide (groups A, C, Y and W-135) conjugate vaccine (MCV4P) 2013-04-18 00:00:00 Completed [facility] Tdap 2013-04-18 00:00:00 Completed [facility] Meningococcal Polysaccharide (groups A, C, Y and W-135) conjugate vaccine (MCV4P) 2013-04-18 00:00:00 Completed [facility] Tdap 2013-04-18 00:00:00 Completed [facility] Tdap 2013-04-18 00:00:00 Completed [facility] Meningococcal Polysaccharide (groups A, C, Y and W-135) conjugate vaccine (MCV4P) 2013-04-18 00:00:00 Completed [facility] Tdap 2013-04-18 00:00:00 Completed [facility] Meningococcal Polysaccharide (groups A, C, Y and W-135) conjugate vaccine (MCV4P) 2013-04-18 00:00:00 Completed [facility] Tdap 2013-04-18 00:00:00 Completed [facility] Meningococcal Polysaccharide (groups A, C, Y and W-135) conjugate vaccine (MCV4P) 2013-04-18 00:00:00 Completed [facility] Tdap 2013-04-18 00:00:00 Completed [facility] Meningococcal Polysaccharide (groups A, C, Y and W-135) conjugate vaccine (MCV4P) 2013-04-18 00:00:00 Completed [facility] Tdap 2013-04-18 00:00:00 Completed [facility] Meningococcal Polysaccharide (groups A, C, Y and W-135) conjugate vaccine (MCV4P) 2013-04-18 00:00:00 Completed [facility] Tdap 2013-04-18 00:00:00 Completed [facility] Meningococcal Polysaccharide (groups A, C, Y and W-135) conjugate vaccine (MCV4P) 2013-04-18 00:00:00 Completed [facility] TDAP 2013-04-18 00:00:00 Completed [facility] Meningococcal Polysaccharide (groups A, C, Y and W-135) conjugate vaccine (MCV4P) 2013-04-18 00:00:00 Completed [facility] TDAP 2013-04-18 00:00:00 Completed [facility] Meningococcal Polysaccharide (groups A, C, Y and W-135) conjugate vaccine (MCV4P) 2013-04-18 00:00:00 Completed [facility] Meningococcal Polysaccharide (groups A, C, Y and W-135) conjugate vaccine (MCV4P) 2013-04-18 00:00:00 Completed [facility] TDAP 2013-04-18 00:00:00 Completed [facility] Meningococcal Polysaccharide (groups A, C, Y and W-135) conjugate vaccine (MCV4P) 2013-04-18 00:00:00 Completed [facility] TDAP 2013-04-18 00:00:00 Completed [facility] Tdap 2013-04-18 00:00:00 Completed [facility] Meningococcal Polysaccharide (groups A, C, Y and W-135) conjugate vaccine (MCV4P) 2013-04-18 00:00:00 Completed [facility] TDAP 2013-04-18 00:00:00 Completed [facility] Meningococcal Polysaccharide (groups A, C, Y and W-135) conjugate vaccine (MCV4P) 2013-04-18 00:00:00 Completed [facility] TDAP 2013-04-18 00:00:00 Completed [facility] Meningococcal Polysaccharide (groups A, C, Y and W-135) conjugate vaccine (MCV4P) 2013-04-18 00:00:00 Completed [facility] TDAP 2013-04-18 00:00:00 Completed [facility] Meningococcal Polysaccharide (groups A, C, Y and W-135) conjugate vaccine (MCV4P) 2013-04-18 00:00:00 Completed [facility] TDAP 2013-04-18 00:00:00 Completed [facility] Meningococcal Polysaccharide (groups A, C, Y and W-135) conjugate vaccine (MCV4P) 2013-04-18 00:00:00 Completed [facility] TDAP 2013-04-18 00:00:00 Completed [facility] Meningococcal Polysaccharide (groups A, C, Y and W-135) conjugate vaccine (MCV4P) 2013-04-18 00:00:00 Completed [facility] TDAP 2013-04-18 00:00:00 Completed [facility] Meningococcal Polysaccharide (groups A, C, Y and W-135) conjugate vaccine (MCV4P) 2013-04-18 00:00:00 Completed [facility] TDAP 2013-04-18 00:00:00 Completed [facility] Meningococcal Polysaccharide (groups A, C, Y and W-135) conjugate vaccine (MCV4P) 2013-04-18 00:00:00 Completed [facility] TDAP 2013-04-18 00:00:00 Completed [facility] Meningococcal Polysaccharide (groups A, C, Y and W-135) conjugate vaccine (MCV4P) 2013-04-18 00:00:00 Completed [facility] TDAP 2013-04-18 00:00:00 Completed [facility] Meningococcal Polysaccharide (groups A, C, Y and W-135) conjugate vaccine (MCV4P) 2013-04-18 00:00:00 Completed [facility] Meningococcal Polysaccharide (groups A, C, Y and W-135) conjugate vaccine (MCV4P) 2013-04-18 00:00:00 Completed [facility] TDAP 2013-04-18 00:00:00 Completed [facility] Meningococcal Polysaccharide (groups A, C, Y and W-135) conjugate vaccine (MCV4P) 2013-04-18 00:00:00 Completed [facility] Tdap 2013-04-18 00:00:00 Completed [facility] TDAP 2013-04-18 00:00:00 Completed [facility] Meningococcal Polysaccharide (groups A, C, Y and W-135) conjugate vaccine (MCV4P) 2013-04-18 00:00:00 Completed [facility] TDAP 2013-04-18 00:00:00 Completed [facility] Meningococcal Polysaccharide (groups A, C, Y and W-135) conjugate vaccine (MCV4P) 2013-04-18 00:00:00 Completed [facility] TDAP 2013-04-18 00:00:00 Completed [facility] Meningococcal Polysaccharide (groups A, C, Y and W-135) conjugate vaccine (MCV4P) 2013-04-18 00:00:00 Completed [facility] TDAP 2013-04-18 00:00:00 Completed [facility] Meningococcal Polysaccharide (groups A, C, Y and W-135) conjugate vaccine (MCV4P) 2013-04-18 00:00:00 Completed [facility] TDAP 2013-04-18 00:00:00 Completed [facility] Meningococcal Polysaccharide (groups A, C, Y and W-135) conjugate vaccine (MCV4P) 2013-04-18 00:00:00 Completed [facility] TDAP 2013-04-18 00:00:00 Completed [facility] Meningococcal Polysaccharide (groups A, C, Y and W-135) conjugate vaccine (MCV4P) 2013-04-18 00:00:00 Completed [facility] TDAP 2013-04-18 00:00:00 Completed [facility] Meningococcal Polysaccharide (groups A, C, Y and W-135) conjugate vaccine (MCV4P) 2013-04-18 00:00:00 Completed [facility] Meningococcal Polysaccharide (groups A, C, Y and W-135) conjugate vaccine (MCV4P) 2013-04-18 00:00:00 Completed [facility] TDAP 2013-04-18 00:00:00 Completed [facility] Tdap 2013-04-18 00:00:00 Completed [facility] Meningococcal Polysaccharide (groups A, C, Y and W-135) conjugate vaccine (MCV4P) 2013-04-18 00:00:00 Completed [facility] TDAP 2013-04-18 00:00:00 Completed [facility] Meningococcal Polysaccharide (groups A, C, Y and W-135) conjugate vaccine (MCV4P) 2013-04-18 00:00:00 Completed [facility] TDAP 2013-04-18 00:00:00 Completed [facility] Meningococcal Polysaccharide (groups A, C, Y and W-135) conjugate vaccine (MCV4P) 2013-04-18 00:00:00 Completed [facility] TDAP 2013-04-18 00:00:00 Completed [facility] Meningococcal Polysaccharide (groups A, C, Y and W-135) conjugate vaccine (MCV4P) 2013-04-18 00:00:00 Completed [facility] TDAP 2013-04-18 00:00:00 Completed [facility] Meningococcal Polysaccharide (groups A, C, Y and W-135) conjugate vaccine (MCV4P) 2013-04-18 00:00:00 Completed [facility] TDAP 2013-04-18 00:00:00 Completed [facility] Meningococcal Polysaccharide (groups A, C, Y and W-135) conjugate vaccine (MCV4P) 2013-04-18 00:00:00 Completed [facility] TDAP 2013-04-18 00:00:00 Completed [facility] Meningococcal Polysaccharide (groups A, C, Y and W-135) conjugate vaccine (MCV4P) 2013-04-18 00:00:00 Completed [facility] TDAP 2013-04-18 00:00:00 Completed [facility] Meningococcal Polysaccharide (groups A, C, Y and W-135) conjugate vaccine (MCV4P) 2013-04-18 00:00:00 Completed [facility] TDAP 2013-04-18 00:00:00 Completed [facility] Meningococcal Polysaccharide (groups A, C, Y and W-135) conjugate vaccine (MCV4P) 2013-04-18 00:00:00 Completed [facility] Meningococcal Polysaccharide (groups A, C, Y and W-135) conjugate vaccine (MCV4P) 2013-04-18 00:00:00 Completed [facility] TDAP 2013-04-18 00:00:00 Completed [facility] Meningococcal Polysaccharide (groups A, C, Y and W-135) conjugate vaccine (MCV4P) 2013-04-18 00:00:00 Completed [facility] TDAP 2013-04-18 00:00:00 Completed [facility] Tdap 2013-04-18 00:00:00 Completed [facility] Meningococcal Polysaccharide (groups A, C, Y and W-135) conjugate vaccine (MCV4P) 2013-04-18 00:00:00 Completed [facility] TDAP 2013-04-18 00:00:00 Completed [facility] Meningococcal Polysaccharide (groups A, C, Y and W-135) conjugate vaccine (MCV4P) 2013-04-18 00:00:00 Completed [facility] TDAP 2013-04-18 00:00:00 Completed [facility] Meningococcal Polysaccharide (groups A, C, Y and W-135) conjugate vaccine (MCV4P) 2013-04-18 00:00:00 Completed [facility] TDAP 2013-04-18 00:00:00 Completed [facility] Meningococcal Polysaccharide (groups A, C, Y and W-135) conjugate vaccine (MCV4P) 2013-04-18 00:00:00 Completed [facility] TDAP 2013-04-18 00:00:00 Completed [facility] Meningococcal Polysaccharide (groups A, C, Y and W-135) conjugate vaccine (MCV4P) 2013-04-18 00:00:00 Completed [facility] Meningococcal Polysaccharide (groups A, C, Y and W-135) conjugate vaccine (MCV4P) 2013-04-18 00:00:00 Completed [facility] TDAP 2013-04-18 00:00:00 Completed [facility] Meningococcal Polysaccharide (groups A, C, Y and W-135) conjugate vaccine (MCV4P) 2013-04-18 00:00:00 Completed [facility] TDAP 2013-04-18 00:00:00 Completed [facility] Tdap 2013-04-18 00:00:00 Completed [facility] Meningococcal Polysaccharide (groups A, C, Y and W-135) conjugate vaccine (MCV4P) 2013-04-18 00:00:00 Completed [facility] TDAP 2013-04-18 00:00:00 Completed [facility] Meningococcal Polysaccharide (groups A, C, Y and W-135) conjugate vaccine (MCV4P) 2013-04-18 00:00:00 Completed [facility] TDAP 2013-04-18 00:00:00 Completed [facility] Meningococcal Polysaccharide (groups A, C, Y and W-135) conjugate vaccine (MCV4P) 2013-04-18 00:00:00 Completed [facility] TDAP 2013-04-18 00:00:00 Completed [facility] Meningococcal Polysaccharide (groups A, C, Y and W-135) conjugate vaccine (MCV4P) 2013-04-18 00:00:00 Completed [facility] TDAP 2013-04-18 00:00:00 Completed [facility] Meningococcal Polysaccharide (groups A, C, Y and W-135) conjugate vaccine (MCV4P) 2013-04-18 00:00:00 Completed [facility] TDAP 2013-04-18 00:00:00 Completed [facility] Meningococcal Polysaccharide (groups A, C, Y and W-135) conjugate vaccine (MCV4P) 2013-04-18 00:00:00 Completed [facility] TDAP 2013-04-18 00:00:00 Completed [facility] Meningococcal Polysaccharide (groups A, C, Y and W-135) conjugate vaccine (MCV4P) 2013-04-18 00:00:00 Completed [facility] Meningococcal Polysaccharide (groups A, C, Y and W-135) conjugate vaccine (MCV4P) 2013-04-18 00:00:00 Completed [facility] TDAP 2013-04-18 00:00:00 Completed [facility] Meningococcal Polysaccharide (groups A, C, Y and W-135) conjugate vaccine (MCV4P) 2013-04-18 00:00:00 Completed [facility] TDAP 2013-04-18 00:00:00 Completed [facility] Tdap 2013-04-18 00:00:00 Completed [facility] Meningococcal Polysaccharide (groups A, C, Y and W-135) conjugate vaccine (MCV4P) 2013-04-18 00:00:00 Completed [facility] TDAP 2013-04-18 00:00:00 Completed [facility] Meningococcal Polysaccharide (groups A, C, Y and W-135) conjugate vaccine (MCV4P) 2013-04-18 00:00:00 Completed [facility] TDAP 2013-04-18 00:00:00 Completed [facility] Meningococcal Polysaccharide (groups A, C, Y and W-135) conjugate vaccine (MCV4P) 2013-04-18 00:00:00 Completed [facility] TDAP 2013-04-18 00:00:00 Completed [facility] Meningococcal Polysaccharide (groups A, C, Y and W-135) conjugate vaccine (MCV4P) 2013-04-18 00:00:00 Completed [facility] TDAP 2013-04-18 00:00:00 Completed [facility] Meningococcal Polysaccharide (groups A, C, Y and W-135) conjugate vaccine (MCV4P) 2013-04-18 00:00:00 Completed [facility] TDAP 2013-04-18 00:00:00 Completed [facility] Meningococcal Polysaccharide (groups A, C, Y and W-135) conjugate vaccine (MCV4P) 2013-04-18 00:00:00 Completed [facility] TDAP 2013-04-18 00:00:00 Completed [facility] Meningococcal Polysaccharide (groups A, C, Y and W-135) conjugate vaccine (MCV4P) 2013-04-18 00:00:00 Completed [facility] TDAP 2013-04-18 00:00:00 Completed [facility] Meningococcal Polysaccharide (groups A, C, Y and W-135) conjugate vaccine (MCV4P) 2013-04-18 00:00:00 Completed [facility] Meningococcal Polysaccharide (groups A, C, Y and W-135) conjugate vaccine (MCV4P) 2013-04-18 00:00:00 Completed [facility] TDAP 2013-04-18 00:00:00 Completed [facility] Tdap 2013-04-18 00:00:00 Completed [facility] Meningococcal Polysaccharide (groups A, C, Y and W-135) conjugate vaccine (MCV4P) 2013-04-18 00:00:00 Completed [facility] TDAP 2013-04-18 00:00:00 Completed [facility] Meningococcal Polysaccharide (groups A, C, Y and W-135) conjugate vaccine (MCV4P) 2013-04-18 00:00:00 Completed [facility] TDAP 2013-04-18 00:00:00 Completed [facility] Meningococcal Polysaccharide (groups A, C, Y and W-135) conjugate vaccine (MCV4P) 2013-04-18 00:00:00 Completed [facility] TDAP 2013-04-18 00:00:00 Completed [facility] Meningococcal Polysaccharide (groups A, C, Y and W-135) conjugate vaccine (MCV4P) 2013-04-18 00:00:00 Completed [facility] TDAP 2013-04-18 00:00:00 Completed [facility] Meningococcal Polysaccharide (groups A, C, Y and W-135) conjugate vaccine (MCV4P) 2013-04-18 00:00:00 Completed [facility] TDAP 2013-04-18 00:00:00 Completed [facility] Meningococcal Polysaccharide (groups A, C, Y and W-135) conjugate vaccine (MCV4P) 2013-04-18 00:00:00 Completed [facility] TDAP 2013-04-18 00:00:00 Completed [facility] Meningococcal Polysaccharide (groups A, C, Y and W-135) conjugate vaccine (MCV4P) 2013-04-18 00:00:00 Completed [facility] TDAP 2013-04-18 00:00:00 Completed [facility] Meningococcal Polysaccharide (groups A, C, Y and W-135) conjugate vaccine (MCV4P) 2013-04-18 00:00:00 Completed [facility] Meningococcal Polysaccharide (groups A, C, Y and W-135) conjugate vaccine (MCV4P) 2013-04-18 00:00:00 Completed [facility] TDAP 2013-04-18 00:00:00 Completed [facility] Tdap 2013-04-18 00:00:00 Completed [facility] Meningococcal Polysaccharide (groups A, C, Y and W-135) conjugate vaccine (MCV4P) 2013-04-18 00:00:00 Completed [facility] TDAP 2013-04-18 00:00:00 Completed [facility] Meningococcal Polysaccharide (groups A, C, Y and W-135) conjugate vaccine (MCV4P) 2013-04-18 00:00:00 Completed [facility] TDAP 2013-04-18 00:00:00 Completed [facility] Meningococcal Polysaccharide (groups A, C, Y and W-135) conjugate vaccine (MCV4P) 2013-04-18 00:00:00 Completed [facility] TDAP 2013-04-18 00:00:00 Completed [facility] Meningococcal Polysaccharide (groups A, C, Y and W-135) conjugate vaccine (MCV4P) 2013-04-18 00:00:00 Completed [facility] TDAP 2013-04-18 00:00:00 Completed [facility] Meningococcal Polysaccharide (groups A, C, Y and W-135) conjugate vaccine (MCV4P) 2013-04-18 [facility] Meningococcal Polysaccharide (groups A, C, Y and W-135) conjugate vaccine (MCV4P) 2013-04-18 00:00:00 Completed [facility] TDAP 2013-04-18 00:00:00 Completed [facility] Meningococcal Polysaccharide (groups A, C, Y and W-135) conjugate vaccine (MCV4P) 2013-04-18 00:00:00 Completed [facility] TDAP 2013-04-18 00:00:00 Completed [facility] Meningococcal Polysaccharide (groups A, C, Y and W-135) conjugate vaccine (MCV4P) 2013-04-18 00:00:00 Completed [facility] Meningococcal Polysaccharide (groups A, C, Y and W-135) conjugate vaccine (MCV4P) 2013-04-18 00:00:00 Completed [facility] TDAP 2013-04-18 00:00:00 Completed [facility] Meningococcal Polysaccharide (groups A, C, Y and W-135) conjugate vaccine (MCV4P) 2013-04-18 00:00:00 Completed [facility] TDAP 2013-04-18 00:00:00 Completed [facility] Tdap 2013-04-18 00:00:00 Completed [facility] Meningococcal Polysaccharide (groups A, C, Y and W-135) conjugate vaccine (MCV4P) 2013-04-18 00:00:00 Completed [facility] Tdap 2013-04-18 00:00:00 Completed [facility] Meningococcal Polysaccharide (groups A, C, Y and W-135) conjugate vaccine (MCV4P) 2013-04-18 00:00:00 Completed [facility] Tdap 2013-04-18 00:00:00 Completed [facility] Meningococcal Polysaccharide (groups A, C, Y and W-135) conjugate vaccine (MCV4P) 2013-04-18 00:00:00 Completed [facility] Tdap 2013-04-18 00:00:00 Completed [facility] Meningococcal Polysaccharide (groups A, C, Y and W-135) conjugate vaccine (MCV4P) 2013-04-18 00:00:00 Completed [facility] Meningococcal Polysaccharide (groups A, C, Y and W-135) conjugate vaccine (MCV4P) 2013-04-18 00:00:00 Completed [facility] Tdap 2013-04-18 00:00:00 Completed [facility] Tdap 2013-04-18 00:00:00 Completed [facility] Meningococcal Polysaccharide (groups A, C, Y and W-135) conjugate vaccine (MCV4P) 2013-04-18 00:00:00 Completed [facility] Tdap 2013-04-18 00:00:00 Completed [facility] Meningococcal Polysaccharide (groups A, C, Y and W-135) conjugate vaccine (MCV4P) 2013-04-18 00:00:00 Completed [facility] Tdap 2013-04-18 00:00:00 Completed [facility] Meningococcal Polysaccharide (groups A, C, Y and W-135) conjugate vaccine (MCV4P) 2013-04-18 00:00:00 Completed [facility] Tdap 2013-04-18 00:00:00 Completed [facility] Meningococcal Polysaccharide (groups A, C, Y and W-135) conjugate vaccine (MCV4P) 2013-04-18 00:00:00 Completed [facility] Tdap 2013-04-18 00:00:00 Completed [facility] Meningococcal Polysaccharide (groups A, C, Y and W-135) conjugate vaccine (MCV4P) 2013-04-18 00:00:00 Completed [facility] Tdap 2013-04-18 00:00:00 Completed [facility] Meningococcal Polysaccharide (groups A, C, Y and W-135) conjugate vaccine (MCV4P) 2013-04-18 00:00:00 Completed [facility] Tdap 2013-04-18 00:00:00 Completed [facility] Meningococcal Polysaccharide (groups A, C, Y and W-135) conjugate vaccine (MCV4P) 2013-04-18 00:00:00 Completed [facility] Tdap 2013-04-18 00:00:00 Completed [facility] Meningococcal Polysaccharide (groups A, C, Y and W-135) conjugate vaccine (MCV4P) 2013-04-18 00:00:00 Completed [facility] Tdap 2013-04-18 00:00:00 Completed [facility] Meningococcal Polysaccharide (groups A, C, Y and W-135) conjugate vaccine (MCV4P) 2013-04-18 00:00:00 Completed [facility] Tdap 2013-04-18 00:00:00 Completed [facility] HPV 2012-11-29 00:00:00 Completed [facility] HPV 2012-11-29 00:00:00 Completed [facility] HPV 2012-11-29 00:00:00 Completed [facility] HPV 2012-11-29 00:00:00 Completed [facility] HPV 2012-11-29 00:00:00 Completed [facility] HPV 2012-11-29 00:00:00 Completed [facility] HPV 2012-11-29 00:00:00 Completed [facility] HPV 2012-11-29 00:00:00 Completed [facility] HPV 2012-11-29 00:00:00 Completed [facility] HPV 2012-11-29 00:00:00 Completed [facility] HPV 2012-11-29 00:00:00 Completed [facility] HPV 2012-11-29 00:00:00 Completed [facility] HPV 2012-11-29 00:00:00 Completed [facility] HPV 2012-11-29 00:00:00 Completed [facility] HPV 2012-11-29 00:00:00 Completed [facility] HPV 2012-11-29 00:00:00 Completed [facility] HPV 2012-11-29 00:00:00 Completed [facility] HPV 2012-11-29 00:00:00 Completed [facility] HPV 2012-11-29 00:00:00 Completed [facility] HPV 2012-11-29 00:00:00 Completed [facility] HPV 2012-11-29 00:00:00 Completed [facility] HPV 2012-11-29 00:00:00 Completed [facility] HPV 2012-11-29 00:00:00 Completed [facility] HPV 2012-11-29 00:00:00 Completed [facility] HPV 2012-11-29 00:00:00 Completed [facility] HPV 2012-11-29 00:00:00 Completed [facility] HPV 2012-11-29 00:00:00 Completed [facility] HPV 2012-11-29 00:00:00 Completed [facility] HPV 2012-11-29 00:00:00 Completed [facility] HPV 2012-11-29 00:00:00 Completed [facility] HPV 2012-11-29 00:00:00 Completed [facility] HPV 2012-11-29 00:00:00 Completed [facility] HPV 2012-11-29 00:00:00 Completed [facility] HPV 2012-11-29 00:00:00 Completed [facility] HPV 2012-11-29 00:00:00 Completed [facility] HPV 2012-11-29 00:00:00 Completed [facility] HPV 2012-11-29 00:00:00 Completed [facility] HPV 2012-11-29 00:00:00 Completed [facility] HPV 2012-11-29 00:00:00 Completed [facility] HPV 2012-11-29 00:00:00 Completed [facility] HPV 2012-11-29 00:00:00 Completed [facility] HPV 2012-11-29 00:00:00 Completed [facility] HPV 2012-11-29 00:00:00 Completed [facility] HPV 2012-11-29 00:00:00 Completed [facility] HPV 2012-11-29 00:00:00 Completed [facility] HPV 2012-11-29 00:00:00 Completed [facility] HPV 2012-11-29 00:00:00 Completed [facility] HPV 2012-11-29 00:00:00 Completed [facility] HPV 2012-11-29 00:00:00 Completed [facility] HPV 2012-11-29 00:00:00 Completed [facility] HPV 2012-11-29 00:00:00 Completed [facility] HPV 2012-11-29 00:00:00 Completed [facility] HPV 2012-11-29 00:00:00 Completed [facility] HPV 2012-11-29 00:00:00 Completed [facility] HPV 2012-11-29 00:00:00 Completed [facility] HPV 2012-11-29 00:00:00 Completed [facility] HPV 2012-11-29 00:00:00 Completed [facility] HPV 2012-11-29 00:00:00 Completed [facility] HPV 2012-11-29 00:00:00 Completed [facility] HPV 2012-11-29 00:00:00 Completed [facility] HPV 2012-11-29 00:00:00 Completed [facility] HPV 2012-11-29 00:00:00 Completed [facility] HPV 2012-11-29 00:00:00 Completed [facility] HPV 2012-11-29 00:00:00 Completed [facility] HPV 2012-11-29 00:00:00 Completed [facility] HPV 2012-11-29 00:00:00 Completed [facility] HPV 2012-11-29 00:00:00 Completed [facility] HPV 2012-11-29 00:00:00 Completed [facility] HPV 2012-11-29 00:00:00 Completed [facility] HPV 2012-11-29 00:00:00 Completed [facility] HPV 2012-11-29 00:00:00 Completed [facility] HPV 2012-11-29 00:00:00 Completed [facility] HPV 2012-11-29 00:00:00 Completed [facility] HPV 2012-11-29 00:00:00 Completed [facility] HPV 2012-11-29 00:00:00 Completed [facility] HPV 2012-11-29 00:00:00 Completed [facility] HPV 2012-11-29 00:00:00 Completed [facility] HPV 2012-11-29 00:00:00 Completed [facility] HPV 2012-11-29 00:00:00 Completed [facility] HPV 2012-11-29 00:00:00 Completed [facility] HPV 2012-11-29 00:00:00 Completed [facility] HPV 2012-11-29 00:00:00 Completed [facility] HPV 2012-11-29 00:00:00 Completed [facility] HPV 2012-11-29 00:00:00 Completed [facility] HPV 2012-11-29 00:00:00 Completed [facility] HPV 2012-11-29 00:00:00 Completed [facility] HPV 2012-11-29 00:00:00 Completed [facility] HPV 2012-11-29 00:00:00 Completed [facility] HPV 2012-11-29 00:00:00 Completed [facility] HPV 2012-11-29 00:00:00 Completed [facility] HPV 2012-11-29 00:00:00 Completed [facility] HPV 2012-11-29 00:00:00 Completed [facility] HPV 2012-11-29 00:00:00 Completed [facility] HPV 2012-11-29 00:00:00 Completed [facility] HPV 2012-11-29 00:00:00 Completed [facility] HPV 2012-11-29 00:00:00 Completed [facility] HPV 2012-11-29 00:00:00 Completed [facility] HPV 2012-11-29 00:00:00 Completed [facility] HPV 2012-11-29 00:00:00 Completed [facility] HPV 2012-11-29 00:00:00 Completed [facility] HPV 2012-11-29 00:00:00 Completed [facility] HPV 2012-11-29 00:00:00 Completed [facility] HPV 2012-11-29 00:00:00 Completed [facility] HPV 2012-07-09 00:00:00 Completed [facility] HPV 2012-07-09 00:00:00 Completed [facility] HPV 2012-07-09 00:00:00 Completed [facility] HPV 2012-07-09 00:00:00 Completed [facility] HPV 2012-07-09 00:00:00 Completed [facility] HPV 2012-07-09 00:00:00 Completed [facility] HPV 2012-07-09 00:00:00 Completed [facility] HPV 2012-07-09 00:00:00 Completed [facility] HPV 2012-07-09 00:00:00 Completed [facility] HPV 2012-07-09 00:00:00 Completed [facility] HPV 2012-07-09 00:00:00 Completed [facility] HPV 2012-07-09 00:00:00 Completed [facility] HPV 2012-07-09 00:00:00 Completed [facility] HPV 2012-07-09 00:00:00 Completed [facility] HPV 2012-07-09 00:00:00 Completed [facility] HPV 2012-07-09 00:00:00 Completed [facility] HPV 2012-07-09 00:00:00 Completed [facility] HPV 2012-07-09 00:00:00 Completed [facility] HPV 2012-07-09 00:00:00 Completed [facility] HPV 2012-07-09 00:00:00 Completed [facility] HPV 2012-07-09 00:00:00 Completed [facility] HPV 2012-07-09 00:00:00 Completed [facility] HPV 2012-07-09 00:00:00 Completed [facility] HPV 2012-07-09 00:00:00 Completed [facility] HPV 2012-07-09 00:00:00 Completed [facility] HPV 2012-07-09 00:00:00 Completed [facility] HPV 2012-07-09 00:00:00 Completed [facility] HPV 2012-07-09 00:00:00 Completed [facility] HPV 2012-07-09 00:00:00 Completed [facility] HPV 2012-07-09 00:00:00 Completed [facility] HPV 2012-07-09 00:00:00 Completed [facility] HPV 2012-07-09 00:00:00 Completed [facility] HPV 2012-07-09 00:00:00 Completed [facility] HPV 2012-07-09 00:00:00 Completed [facility] HPV 2012-07-09 00:00:00 Completed [facility] HPV 2012-07-09 00:00:00 Completed [facility] HPV 2012-07-09 00:00:00 Completed [facility] HPV 2012-07-09 00:00:00 Completed [facility] HPV 2012-07-09 00:00:00 Completed [facility] HPV 2012-07-09 00:00:00 Completed [facility] HPV 2012-07-09 00:00:00 Completed [facility] HPV 2012-07-09 00:00:00 Completed [facility] HPV 2012-07-09 00:00:00 Completed [facility] HPV 2012-07-09 00:00:00 Completed [facility] HPV 2012-07-09 00:00:00 Completed [facility] HPV 2012-07-09 00:00:00 Completed [facility] HPV 2012-07-09 00:00:00 Completed [facility] HPV 2012-07-09 00:00:00 Completed [facility] HPV 2012-07-09 00:00:00 Completed [facility] HPV 2012-07-09 00:00:00 Completed [facility] HPV 2012-07-09 00:00:00 Completed [facility] HPV 2012-07-09 00:00:00 Completed [facility] HPV 2012-07-09 00:00:00 Completed [facility] HPV 2012-07-09 00:00:00 Completed [facility] HPV 2012-07-09 00:00:00 Completed [facility] HPV 2012-07-09 00:00:00 Completed [facility] HPV 2012-07-09 00:00:00 Completed [facility] HPV 2012-07-09 00:00:00 Completed [facility] HPV 2012-07-09 00:00:00 Completed [facility] HPV 2012-07-09 00:00:00 Completed [facility] HPV 2012-07-09 00:00:00 Completed [facility] HPV 2012-07-09 00:00:00 Completed [facility] HPV 2012-07-09 00:00:00 Completed [facility] HPV 2012-07-09 00:00:00 Completed [facility] HPV 2012-07-09 00:00:00 Completed [facility] HPV 2012-07-09 00:00:00 Completed [facility] HPV 2012-07-09 00:00:00 Completed [facility] HPV 2012-07-09 00:00:00 Completed [facility] HPV 2012-07-09 00:00:00 Completed [facility] HPV 2012-07-09 00:00:00 Completed [facility] HPV 2012-07-09 00:00:00 Completed [facility] HPV 2012-07-09 00:00:00 Completed [facility] HPV 2012-07-09 00:00:00 Completed [facility] HPV 2012-07-09 00:00:00 Completed [facility] HPV 2012-07-09 00:00:00 Completed [facility] HPV 2012-07-09 00:00:00 Completed [facility] HPV 2012-07-09 00:00:00 Completed [facility] HPV 2012-07-09 00:00:00 Completed [facility] HPV 2012-07-09 00:00:00 Completed [facility] HPV 2012-07-09 00:00:00 Completed [facility] HPV 2012-07-09 00:00:00 Completed [facility] HPV 2012-07-09 00:00:00 Completed [facility] HPV 2012-07-09 00:00:00 Completed [facility] HPV 2012-07-09 00:00:00 Completed [facility] HPV 2012-07-09 00:00:00 Completed [facility] HPV 2012-07-09 00:00:00 Completed [facility] HPV 2012-07-09 00:00:00 Completed [facility] HPV 2012-07-09 00:00:00 Completed [facility] HPV 2012-07-09 00:00:00 Completed [facility] HPV 2012-07-09 00:00:00 Completed [facility] HPV 2012-07-09 00:00:00 Completed [facility] HPV 2012-07-09 00:00:00 Completed [facility] HPV 2012-07-09 00:00:00 Completed [facility] HPV 2012-07-09 00:00:00 Completed [facility] HPV 2012-07-09 00:00:00 Completed [facility] HPV 2012-07-09 00:00:00 Completed [facility] HPV 2012-07-09 00:00:00 Completed [facility] HPV 2012-07-09 00:00:00 Completed [facility] HPV 2012-07-09 00:00:00 Completed [facility] HPV 2012-07-09 00:00:00 Completed [facility] HPV 2012-07-09 00:00:00 Completed [facility] HPV 2012-07-09 00:00:00 Completed [facility] HPV 2012-07-09 00:00:00 Completed [facility] HPV 2011-04-07 00:00:00 Completed [facility] HPV 2011-04-07 00:00:00 Completed [facility] HPV 2011-04-07 00:00:00 Completed [facility] HPV 2011-04-07 00:00:00 Completed [facility] HPV 2011-04-07 00:00:00 Completed [facility] HPV 2011-04-07 00:00:00 Completed [facility] HPV 2011-04-07 00:00:00 Completed [facility] HPV 2011-04-07 00:00:00 Completed [facility] HPV 2011-04-07 00:00:00 Completed [facility] HPV 2011-04-07 00:00:00 Completed [facility] HPV 2011-04-07 00:00:00 Completed [facility] HPV 2011-04-07 00:00:00 Completed [facility] HPV 2011-04-07 00:00:00 Completed [facility] HPV 2011-04-07 00:00:00 Completed [facility] HPV 2011-04-07 00:00:00 Completed [facility] HPV 2011-04-07 00:00:00 Completed [facility] HPV 2011-04-07 00:00:00 Completed [facility] HPV 2011-04-07 00:00:00 Completed [facility] HPV 2011-04-07 00:00:00 Completed [facility] HPV 2011-04-07 00:00:00 Completed [facility] HPV 2011-04-07 00:00:00 Completed [facility] HPV 2011-04-07 00:00:00 Completed [facility] HPV 2011-04-07 00:00:00 Completed [facility] HPV 2011-04-07 00:00:00 Completed [facility] HPV 2011-04-07 00:00:00 Completed [facility] HPV 2011-04-07 00:00:00 Completed [facility] HPV 2011-04-07 00:00:00 Completed [facility] HPV 2011-04-07 00:00:00 Completed [facility] HPV 2011-04-07 00:00:00 Completed [facility] HPV 2011-04-07 00:00:00 Completed [facility] HPV 2011-04-07 00:00:00 Completed [facility] HPV 2011-04-07 00:00:00 Completed [facility] HPV 2011-04-07 00:00:00 Completed [facility] HPV 2011-04-07 00:00:00 Completed [facility] HPV 2011-04-07 00:00:00 Completed [facility] HPV 2011-04-07 00:00:00 Completed [facility] HPV 2011-04-07 00:00:00 Completed [facility] HPV 2011-04-07 00:00:00 Completed [facility] HPV 2011-04-07 00:00:00 Completed [facility] HPV 2011-04-07 00:00:00 Completed [facility] HPV 2011-04-07 00:00:00 Completed [facility] HPV 2011-04-07 00:00:00 Completed [facility] HPV 2011-04-07 00:00:00 Completed [facility] HPV 2011-04-07 00:00:00 Completed [facility] HPV 2011-04-07 00:00:00 Completed [facility] HPV 2011-04-07 00:00:00 Completed [facility] HPV 2011-04-07 00:00:00 Completed [facility] HPV 2011-04-07 00:00:00 Completed [facility] HPV 2011-04-07 00:00:00 Completed [facility] HPV 2011-04-07 00:00:00 Completed [facility] HPV 2011-04-07 00:00:00 Completed [facility] HPV 2011-04-07 00:00:00 Completed [facility] HPV 2011-04-07 00:00:00 Completed [facility] HPV 2011-04-07 00:00:00 Completed [facility] HPV 2011-04-07 00:00:00 Completed [facility] HPV 2011-04-07 00:00:00 Completed [facility] HPV 2011-04-07 00:00:00 Completed [facility] HPV 2011-04-07 00:00:00 Completed [facility] HPV 2011-04-07 00:00:00 Completed [facility] HPV 2011-04-07 00:00:00 Completed [facility] HPV 2011-04-07 00:00:00 Completed [facility] HPV 2011-04-07 00:00:00 Completed [facility] HPV 2011-04-07 00:00:00 Completed [facility] HPV 2011-04-07 00:00:00 Completed [facility] HPV 2011-04-07 00:00:00 Completed [facility] HPV 2011-04-07 00:00:00 Completed [facility] HPV 2011-04-07 00:00:00 Completed [facility] HPV 2011-04-07 00:00:00 Completed [facility] HPV 2011-04-07 00:00:00 Completed [facility] HPV 2011-04-07 00:00:00 Completed [facility] HPV 2011-04-07 00:00:00 Completed [facility] HPV 2011-04-07 00:00:00 Completed [facility] HPV 2011-04-07 00:00:00 Completed [facility] HPV 2011-04-07 00:00:00 Completed [facility] HPV 2011-04-07 00:00:00 Completed [facility] HPV 2011-04-07 00:00:00 Completed [facility] HPV 2011-04-07 00:00:00 Completed [facility] HPV 2011-04-07 00:00:00 Completed [facility] HPV 2011-04-07 00:00:00 Completed [facility] HPV 2011-04-07 00:00:00 Completed [facility] HPV 2011-04-07 00:00:00 Completed [facility] HPV 2011-04-07 00:00:00 Completed [facility] HPV 2011-04-07 00:00:00 Completed [facility] HPV 2011-04-07 00:00:00 Completed [facility] HPV 2011-04-07 00:00:00 Completed [facility] HPV 2011-04-07 00:00:00 Completed [facility] HPV 2011-04-07 00:00:00 Completed [facility] HPV 2011-04-07 00:00:00 Completed [facility] HPV 2011-04-07 00:00:00 Completed [facility] HPV 2011-04-07 00:00:00 Completed [facility] HPV 2011-04-07 00:00:00 Completed [facility] HPV 2011-04-07 00:00:00 Completed [facility] HPV 2011-04-07 00:00:00 Completed [facility] HPV 2011-04-07 00:00:00 Completed [facility] HPV 2011-04-07 00:00:00 Completed [facility] HPV 2011-04-07 00:00:00 Completed [facility] HPV 2011-04-07 00:00:00 Completed [facility] HPV 2011-04-07 00:00:00 Completed [facility] HPV 2011-04-07 00:00:00 Completed [facility] HPV 2011-04-07 00:00:00 Completed [facility] HPV 2011-04-07 00:00:00 Completed [facility] HPV 2011-04-07 00:00:00 Completed [facility] HPV 2011-04-07 00:00:00 Completed [facility] Polio (IPV/OPV) 2006-04-20 00:00:00 Completed [facility] Varicella (varivax)(chicken pox) 2006-04-20 00:00:00 Completed [facility] DTAP 2006-04-20 00:00:00 Completed [facility] MMR 2006-04-20 00:00:00 Completed [facility] Polio (IPV/OPV) 2006-04-20 00:00:00 Completed [facility] Varicella (varivax)(chicken pox) 2006-04-20 00:00:00 Completed [facility] DTAP 2006-04-20 00:00:00 Completed [facility] MMR 2006-04-20 00:00:00 Completed [facility] Polio (IPV/OPV) 2006-04-20 00:00:00 Completed [facility] Polio (IPV/OPV) 2006-04-20 00:00:00 Completed [facility] Varicella (varivax)(chicken pox) 2006-04-20 00:00:00 Completed [facility] DTAP 2006-04-20 00:00:00 Completed [facility] MMR 2006-04-20 00:00:00 Completed [facility] Varicella (varivax)(chicken pox) 2006-04-20 00:00:00 Completed [facility] DTAP 2006-04-20 00:00:00 Completed [facility] MMR 2006-04-20 00:00:00 Completed [facility] Polio (IPV/OPV) 2006-04-20 00:00:00 Completed [facility] Varicella (varivax)(chicken pox) 2006-04-20 00:00:00 Completed [facility] DTAP 2006-04-20 00:00:00 Completed [facility] MMR 2006-04-20 00:00:00 Completed [facility] Polio (IPV/OPV) 2006-04-20 00:00:00 Completed [facility] Varicella (varivax)(chicken pox) 2006-04-20 00:00:00 Completed [facility] DTAP 2006-04-20 00:00:00 Completed [facility] MMR 2006-04-20 00:00:00 Completed [facility] Polio (IPV/OPV) 2006-04-20 00:00:00 Completed [facility] Varicella (varivax)(chicken pox) 2006-04-20 00:00:00 Completed [facility] DTAP 2006-04-20 00:00:00 Completed [facility] MMR 2006-04-20 00:00:00 Completed [facility] Polio (IPV/OPV) 2006-04-20 00:00:00 Completed [facility] Varicella (varivax)(chicken pox) 2006-04-20 00:00:00 Completed [facility] DTAP 2006-04-20 00:00:00 Completed [facility] MMR 2006-04-20 00:00:00 Completed [facility] Polio (IPV/OPV) 2006-04-20 00:00:00 Completed [facility] Varicella (varivax)(chicken pox) 2006-04-20 00:00:00 Completed [facility] DTAP 2006-04-20 00:00:00 Completed [facility] MMR 2006-04-20 00:00:00 Completed [facility] Polio (IPV/OPV) 2006-04-20 00:00:00 Completed [facility] Varicella (varivax)(chicken pox) 2006-04-20 00:00:00 Completed [facility] DTAP 2006-04-20 00:00:00 Completed [facility] MMR 2006-04-20 00:00:00 Completed [facility] Polio (IPV/OPV) 2006-04-20 00:00:00 Completed [facility] Varicella (varivax)(chicken pox) 2006-04-20 00:00:00 Completed [facility] DTAP 2006-04-20 00:00:00 Completed [facility] MMR 2006-04-20 00:00:00 Completed [facility] Polio (IPV/OPV) 2006-04-20 00:00:00 Completed [facility] Varicella (varivax)(chicken pox) 2006-04-20 00:00:00 Completed [facility] DTAP 2006-04-20 00:00:00 Completed [facility] MMR 2006-04-20 00:00:00 Completed [facility] Polio (IPV/OPV) 2006-04-20 00:00:00 Completed [facility] Polio (IPV/OPV) 2006-04-20 00:00:00 Completed [facility] Varicella (varivax)(chicken pox) 2006-04-20 00:00:00 Completed [facility] DTAP 2006-04-20 00:00:00 Completed [facility] MMR 2006-04-20 00:00:00 Completed [facility] Varicella (varivax)(chicken pox) 2006-04-20 00:00:00 Completed [facility] DTAP 2006-04-20 00:00:00 Completed [facility] Polio (IPV/OPV) 2006-04-20 00:00:00 Completed [facility] Varicella (varivax)(chicken pox) 2006-04-20 00:00:00 Completed [facility] DTAP 2006-04-20 00:00:00 Completed [facility] MMR 2006-04-20 00:00:00 Completed [facility] MMR 2006-04-20 00:00:00 Completed [facility] Polio (IPV/OPV) 2006-04-20 00:00:00 Completed [facility] Varicella (varivax)(chicken pox) 2006-04-20 00:00:00 Completed [facility] DTAP 2006-04-20 00:00:00 Completed [facility] MMR 2006-04-20 00:00:00 Completed [facility] Polio (IPV/OPV) 2006-04-20 00:00:00 Completed [facility] Varicella (varivax)(chicken pox) 2006-04-20 00:00:00 Completed [facility] DTAP 2006-04-20 00:00:00 Completed [facility] MMR 2006-04-20 00:00:00 Completed [facility] Polio (IPV/OPV) 2006-04-20 00:00:00 Completed [facility] Varicella (varivax)(chicken pox) 2006-04-20 00:00:00 Completed [facility] DTAP 2006-04-20 00:00:00 Completed [facility] MMR 2006-04-20 00:00:00 Completed [facility] Polio (IPV/OPV) 2006-04-20 00:00:00 Completed [facility] Varicella (varivax)(chicken pox) 2006-04-20 00:00:00 Completed [facility] DTAP 2006-04-20 00:00:00 Completed [facility] MMR 2006-04-20 00:00:00 Completed [facility] Polio (IPV/OPV) 2006-04-20 00:00:00 Completed [facility] Varicella (varivax)(chicken pox) 2006-04-20 00:00:00 Completed [facility] DTAP 2006-04-20 00:00:00 Completed [facility] MMR 2006-04-20 00:00:00 Completed [facility] Polio (IPV/OPV) 2006-04-20 00:00:00 Completed [facility] Varicella (varivax)(chicken pox) 2006-04-20 00:00:00 Completed [facility] DTAP 2006-04-20 00:00:00 Completed [facility] MMR 2006-04-20 00:00:00 Completed [facility] Polio (IPV/OPV) 2006-04-20 00:00:00 Completed [facility] Varicella (varivax)(chicken pox) 2006-04-20 00:00:00 Completed [facility] DTAP 2006-04-20 00:00:00 Completed [facility] MMR 2006-04-20 00:00:00 Completed [facility] Polio (IPV/OPV) 2006-04-20 00:00:00 Completed [facility] Varicella (varivax)(chicken pox) 2006-04-20 00:00:00 Completed [facility] DTAP 2006-04-20 00:00:00 Completed [facility] MMR 2006-04-20 00:00:00 Completed [facility] Polio (IPV/OPV) 2006-04-20 00:00:00 Completed [facility] Varicella (varivax)(chicken pox) 2006-04-20 00:00:00 Completed [facility] DTAP 2006-04-20 00:00:00 Completed [facility] MMR 2006-04-20 00:00:00 Completed [facility] Polio (IPV/OPV) 2006-04-20 00:00:00 Completed [facility] Polio (IPV/OPV) 2006-04-20 00:00:00 Completed [facility] Varicella (varivax)(chicken pox) 2006-04-20 00:00:00 Completed [facility] DTAP 2006-04-20 00:00:00 Completed [facility] MMR 2006-04-20 00:00:00 Completed [facility] Varicella (varivax)(chicken pox) 2006-04-20 00:00:00 Completed [facility] DTAP 2006-04-20 00:00:00 Completed [facility] MMR 2006-04-20 00:00:00 Completed [facility] Polio (IPV/OPV) 2006-04-20 00:00:00 Completed [facility] Varicella (varivax)(chicken pox) 2006-04-20 00:00:00 Completed [facility] DTAP 2006-04-20 00:00:00 Completed [facility] MMR 2006-04-20 00:00:00 Completed [facility] Polio (IPV/OPV) 2006-04-20 00:00:00 Completed [facility] Varicella (varivax)(chicken pox) 2006-04-20 00:00:00 Completed [facility] DTAP 2006-04-20 00:00:00 Completed [facility] MMR 2006-04-20 00:00:00 Completed [facility] Polio (IPV/OPV) 2006-04-20 00:00:00 Completed [facility] Varicella (varivax)(chicken pox) 2006-04-20 00:00:00 Completed [facility] DTAP 2006-04-20 00:00:00 Completed [facility] MMR 2006-04-20 00:00:00 Completed [facility] Polio (IPV/OPV) 2006-04-20 00:00:00 Completed [facility] Varicella (varivax)(chicken pox) 2006-04-20 00:00:00 Completed [facility] DTAP 2006-04-20 00:00:00 Completed [facility] MMR 2006-04-20 00:00:00 Completed [facility] Polio (IPV/OPV) 2006-04-20 00:00:00 Completed [facility] Varicella (varivax)(chicken pox) 2006-04-20 00:00:00 Completed [facility] DTAP 2006-04-20 00:00:00 Completed [facility] MMR 2006-04-20 00:00:00 Completed [facility] Polio (IPV/OPV) 2006-04-20 00:00:00 Completed [facility] Varicella (varivax)(chicken pox) 2006-04-20 00:00:00 Completed [facility] DTAP 2006-04-20 00:00:00 Completed [facility] MMR 2006-04-20 00:00:00 Completed [facility] Polio (IPV/OPV) 2006-04-20 00:00:00 Completed [facility] Varicella (varivax)(chicken pox) 2006-04-20 00:00:00 Completed [facility] DTAP 2006-04-20 00:00:00 Completed [facility] MMR 2006-04-20 00:00:00 Completed [facility] Polio (IPV/OPV) 2006-04-20 00:00:00 Completed [facility] Polio (IPV/OPV) 2006-04-20 00:00:00 Completed [facility] Varicella (varivax)(chicken pox) 2006-04-20 00:00:00 Completed [facility] DTAP 2006-04-20 00:00:00 Completed [facility] MMR 2006-04-20 00:00:00 Completed [facility] Varicella (varivax)(chicken pox) 2006-04-20 00:00:00 Completed [facility] DTAP 2006-04-20 00:00:00 Completed [facility] MMR 2006-04-20 00:00:00 Completed [facility] Polio (IPV/OPV) 2006-04-20 00:00:00 Completed [facility] Varicella (varivax)(chicken pox) 2006-04-20 00:00:00 Completed [facility] DTAP 2006-04-20 00:00:00 Completed [facility] MMR 2006-04-20 00:00:00 Completed [facility] Polio (IPV/OPV) 2006-04-20 00:00:00 Completed [facility] Varicella (varivax)(chicken pox) 2006-04-20 00:00:00 Completed [facility] DTAP 2006-04-20 00:00:00 Completed [facility] MMR 2006-04-20 00:00:00 Completed [facility] Polio (IPV/OPV) 2006-04-20 00:00:00 Completed [facility] Varicella (varivax)(chicken pox) 2006-04-20 00:00:00 Completed [facility] DTAP 2006-04-20 00:00:00 Completed [facility] MMR 2006-04-20 00:00:00 Completed [facility] Polio (IPV/OPV) 2006-04-20 00:00:00 Completed [facility] Varicella (varivax)(chicken pox) 2006-04-20 00:00:00 Completed [facility] DTAP 2006-04-20 00:00:00 Completed [facility] MMR 2006-04-20 00:00:00 Completed [facility] Polio (IPV/OPV) 2006-04-20 00:00:00 Completed [facility] Varicella (varivax)(chicken pox) 2006-04-20 00:00:00 Completed [facility] DTAP 2006-04-20 00:00:00 Completed [facility] MMR 2006-04-20 00:00:00 Completed [facility] Polio (IPV/OPV) 2006-04-20 00:00:00 Completed [facility] Varicella (varivax)(chicken pox) 2006-04-20 00:00:00 Completed [facility] DTAP 2006-04-20 00:00:00 Completed [facility] MMR 2006-04-20 00:00:00 Completed [facility] Polio (IPV/OPV) 2006-04-20 00:00:00 Completed [facility] Varicella (varivax)(chicken pox) 2006-04-20 00:00:00 Completed [facility] DTAP 2006-04-20 00:00:00 Completed [facility] MMR 2006-04-20 00:00:00 Completed [facility] Polio (IPV/OPV) 2006-04-20 00:00:00 Completed [facility] Varicella (varivax)(chicken pox) 2006-04-20 00:00:00 Completed [facility] DTAP 2006-04-20 00:00:00 Completed [facility] MMR 2006-04-20 00:00:00 Completed [facility] Polio (IPV/OPV) 2006-04-20 00:00:00 Completed [facility] Polio (IPV/OPV) 2006-04-20 00:00:00 Completed [facility] Varicella (varivax)(chicken pox) 2006-04-20 00:00:00 Completed [facility] DTAP 2006-04-20 00:00:00 Completed [facility] MMR 2006-04-20 00:00:00 Completed [facility] Varicella (varivax)(chicken pox) 2006-04-20 00:00:00 Completed [facility] DTAP 2006-04-20 00:00:00 Completed [facility] Polio (IPV/OPV) 2006-04-20 00:00:00 Completed [facility] MMR 2006-04-20 00:00:00 Completed [facility] Varicella (varivax)(chicken pox) 2006-04-20 00:00:00 Completed [facility] DTAP 2006-04-20 00:00:00 Completed [facility] MMR 2006-04-20 00:00:00 Completed [facility] Polio (IPV/OPV) 2006-04-20 00:00:00 Completed [facility] Varicella (varivax)(chicken pox) 2006-04-20 00:00:00 Completed [facility] DTAP 2006-04-20 00:00:00 Completed [facility] MMR 2006-04-20 00:00:00 Completed [facility] Polio (IPV/OPV) 2006-04-20 00:00:00 Completed [facility] Varicella (varivax)(chicken pox) 2006-04-20 00:00:00 Completed [facility] DTAP 2006-04-20 00:00:00 Completed [facility] MMR 2006-04-20 00:00:00 Completed [facility] Polio (IPV/OPV) 2006-04-20 00:00:00 Completed [facility] Varicella (varivax)(chicken pox) 2006-04-20 00:00:00 Completed [facility] DTAP 2006-04-20 00:00:00 Completed [facility] MMR 2006-04-20 00:00:00 Completed [facility] Polio (IPV/OPV) 2006-04-20 00:00:00 Completed [facility] Varicella (varivax)(chicken pox) 2006-04-20 00:00:00 Completed [facility] DTAP 2006-04-20 00:00:00 Completed [facility] MMR 2006-04-20 00:00:00 Completed [facility] Polio (IPV/OPV) 2006-04-20 00:00:00 Completed [facility] Polio (IPV/OPV) 2006-04-20 00:00:00 Completed [facility] Varicella (varivax)(chicken pox) 2006-04-20 00:00:00 Completed [facility] DTAP 2006-04-20 00:00:00 Completed [facility] MMR 2006-04-20 00:00:00 Completed [facility] Varicella (varivax)(chicken pox) 2006-04-20 00:00:00 Completed [facility] DTAP 2006-04-20 00:00:00 Completed [facility] Polio (IPV/OPV) 2006-04-20 00:00:00 Completed [facility] Varicella (varivax)(chicken pox) 2006-04-20 00:00:00 Completed [facility] MMR 2006-04-20 00:00:00 Completed [facility] DTAP 2006-04-20 00:00:00 Completed [facility] MMR 2006-04-20 00:00:00 Completed [facility] Polio (IPV/OPV) 2006-04-20 00:00:00 Completed [facility] Varicella (varivax)(chicken pox) 2006-04-20 00:00:00 Completed [facility] DTAP 2006-04-20 00:00:00 Completed [facility] MMR 2006-04-20 00:00:00 Completed [facility] Polio (IPV/OPV) 2006-04-20 00:00:00 Completed [facility] Varicella (varivax)(chicken pox) 2006-04-20 00:00:00 Completed [facility] DTAP 2006-04-20 00:00:00 Completed [facility] MMR 2006-04-20 00:00:00 Completed [facility] Polio (IPV/OPV) 2006-04-20 00:00:00 Completed [facility] Varicella (varivax)(chicken pox) 2006-04-20 00:00:00 Completed [facility] DTAP 2006-04-20 00:00:00 Completed [facility] MMR 2006-04-20 00:00:00 Completed [facility] Polio (IPV/OPV) 2006-04-20 00:00:00 Completed [facility] Varicella (varivax)(chicken pox) 2006-04-20 00:00:00 Completed [facility] DTAP 2006-04-20 00:00:00 Completed [facility] MMR 2006-04-20 00:00:00 Completed [facility] Polio (IPV/OPV) 2006-04-20 00:00:00 Completed [facility] Varicella (varivax)(chicken pox) 2006-04-20 00:00:00 Completed [facility] DTAP 2006-04-20 00:00:00 Completed [facility] MMR 2006-04-20 00:00:00 Completed [facility] Polio (IPV/OPV) 2006-04-20 00:00:00 Completed [facility] Varicella (varivax)(chicken pox) 2006-04-20 00:00:00 Completed [facility] DTAP 2006-04-20 00:00:00 Completed [facility] MMR 2006-04-20 00:00:00 Completed [facility] Polio (IPV/OPV) 2006-04-20 00:00:00 Completed [facility] Polio (IPV/OPV) 2006-04-20 00:00:00 Completed [facility] Varicella (varivax)(chicken pox) 2006-04-20 00:00:00 Completed [facility] DTAP 2006-04-20 00:00:00 Completed [facility] MMR 2006-04-20 00:00:00 Completed [facility] Varicella (varivax)(chicken pox) 2006-04-20 00:00:00 Completed [facility] DTAP 2006-04-20 00:00:00 Completed [facility] Polio (IPV/OPV) 2006-04-20 00:00:00 Completed [facility] MMR 2006-04-20 00:00:00 Completed [facility] Varicella (varivax)(chicken pox) 2006-04-20 00:00:00 Completed [facility] DTAP 2006-04-20 00:00:00 Completed [facility] MMR 2006-04-20 00:00:00 Completed [facility] Polio (IPV/OPV) 2006-04-20 00:00:00 Completed [facility] Varicella (varivax)(chicken pox) 2006-04-20 00:00:00 Completed [facility] DTAP 2006-04-20 00:00:00 Completed [facility] MMR 2006-04-20 00:00:00 Completed [facility] Polio (IPV/OPV) 2006-04-20 00:00:00 Completed [facility] Varicella (varivax)(chicken pox) 2006-04-20 00:00:00 Completed [facility] DTAP 2006-04-20 00:00:00 Completed [facility] MMR 2006-04-20 00:00:00 Completed [facility] Polio (IPV/OPV) 2006-04-20 00:00:00 Completed [facility] Varicella (varivax)(chicken pox) 2006-04-20 00:00:00 Completed [facility] DTAP 2006-04-20 00:00:00 Completed [facility] MMR 2006-04-20 00:00:00 Completed [facility] Polio (IPV/OPV) 2006-04-20 00:00:00 Completed [facility] Varicella (varivax)(chicken pox) 2006-04-20 00:00:00 Completed [facility] DTAP 2006-04-20 00:00:00 Completed [facility] MMR 2006-04-20 00:00:00 Completed [facility] Polio (IPV/OPV) 2006-04-20 00:00:00 Completed [facility] Varicella (varivax)(chicken pox) 2006-04-20 00:00:00 Completed [facility] DTAP 2006-04-20 00:00:00 Completed [facility] MMR 2006-04-20 00:00:00 Completed [facility] Polio (IPV/OPV) 2006-04-20 00:00:00 Completed [facility] Varicella (varivax)(chicken pox) 2006-04-20 00:00:00 Completed [facility] DTAP 2006-04-20 00:00:00 Completed [facility] MMR 2006-04-20 00:00:00 Completed [facility] Polio (IPV/OPV) 2006-04-20 00:00:00 Completed [facility] Polio (IPV/OPV) 2006-04-20 00:00:00 Completed [facility] Varicella (varivax)(chicken pox) 2006-04-20 00:00:00 Completed [facility] DTAP 2006-04-20 00:00:00 Completed [facility] MMR 2006-04-20 00:00:00 Completed [facility] Varicella (varivax)(chicken pox) 2006-04-20 00:00:00 Completed [facility] Polio (IPV/OPV) 2006-04-20 00:00:00 Completed [facility] Varicella (varivax)(chicken pox) 2006-04-20 00:00:00 Completed [facility] DTAP 2006-04-20 00:00:00 Completed [facility] DTAP 2006-04-20 00:00:00 Completed [facility] MMR 2006-04-20 00:00:00 Completed [facility] MMR 2006-04-20 00:00:00 Completed [facility] Polio (IPV/OPV) 2006-04-20 00:00:00 Completed [facility] Varicella (varivax)(chicken pox) 2006-04-20 00:00:00 Completed [facility] DTAP 2006-04-20 00:00:00 Completed [facility] MMR 2006-04-20 00:00:00 Completed [facility] Polio (IPV/OPV) 2006-04-20 00:00:00 Completed [facility] Varicella (varivax)(chicken pox) 2006-04-20 00:00:00 Completed [facility] DTAP 2006-04-20 00:00:00 Completed [facility] MMR 2006-04-20 00:00:00 Completed [facility] Polio (IPV/OPV) 2006-04-20 00:00:00 Completed [facility] Varicella (varivax)(chicken pox) 2006-04-20 00:00:00 Completed [facility] DTAP 2006-04-20 00:00:00 Completed [facility] MMR 2006-04-20 00:00:00 Completed [facility] Polio (IPV/OPV) 2006-04-20 00:00:00 Completed [facility] Varicella (varivax)(chicken pox) 2006-04-20 00:00:00 Completed [facility] DTAP 2006-04-20 00:00:00 Completed [facility] MMR 2006-04-20 00:00:00 Completed [facility] Polio (IPV/OPV) 2006-04-20 00:00:00 Completed [facility] Varicella (varivax)(chicken pox) 2006-04-20 00:00:00 Completed [facility] DTAP 2006-04-20 00:00:00 Completed [facility] MMR 2006-04-20 00:00:00 Completed [facility] Polio (IPV/OPV) 2006-04-20 00:00:00 Completed [facility] Varicella (varivax)(chicken pox) 2006-04-20 00:00:00 Completed [facility] DTAP 2006-04-20 00:00:00 Completed [facility] MMR 2006-04-20 00:00:00 Completed [facility] Polio (IPV/OPV) 2006-04-20 00:00:00 Completed [facility] Polio (IPV/OPV) 2006-04-20 00:00:00 Completed [facility] Varicella (varivax)(chicken pox) 2006-04-20 00:00:00 Completed [facility] DTAP 2006-04-20 00:00:00 Completed [facility] MMR 2006-04-20 00:00:00 Completed [facility] Polio (IPV/OPV) 2006-04-20 00:00:00 Completed [facility] Varicella (varivax)(chicken pox) 2006-04-20 00:00:00 Completed [facility] DTAP 2006-04-20 00:00:00 Completed [facility] MMR 2006-04-20 00:00:00 Completed [facility] Varicella (varivax)(chicken pox) 2006-04-20 00:00:00 Completed [facility] DTAP 2006-04-20 00:00:00 Completed [facility] MMR 2006-04-20 00:00:00 Completed [facility] Polio (IPV/OPV) 2006-04-20 00:00:00 Completed [facility] Varicella (varivax)(chicken pox) 2006-04-20 00:00:00 Completed [facility] DTAP 2006-04-20 00:00:00 Completed [facility] MMR 2006-04-20 00:00:00 Completed [facility] Polio (IPV/OPV) 2006-04-20 00:00:00 Completed [facility] Varicella (varivax)(chicken pox) 2006-04-20 00:00:00 Completed [facility] DTAP 2006-04-20 00:00:00 Completed [facility] MMR 2006-04-20 00:00:00 Completed [facility] Polio (IPV/OPV) 2006-04-20 00:00:00 Completed [facility] Varicella (varivax)(chicken pox) 2006-04-20 00:00:00 Completed [facility] DTAP 2006-04-20 00:00:00 Completed [facility] MMR 2006-04-20 00:00:00 Completed [facility] Polio (IPV/OPV) 2006-04-20 00:00:00 Completed [facility] Varicella (varivax)(chicken pox) 2006-04-20 00:00:00 Completed [facility] DTAP 2006-04-20 00:00:00 Completed [facility] MMR 2006-04-20 00:00:00 Completed [facility] Polio (IPV/OPV) 2006-04-20 00:00:00 Completed [facility] Varicella (varivax)(chicken pox) 2006-04-20 00:00:00 Completed [facility] DTAP 2006-04-20 00:00:00 Completed [facility] MMR 2006-04-20 00:00:00 Completed [facility] Polio (IPV/OPV) 2006-04-20 00:00:00 Completed [facility] Varicella (varivax)(chicken pox) 2006-04-20 00:00:00 Completed [facility] DTAP 2006-04-20 00:00:00 Completed [facility] MMR 2006-04-20 00:00:00 Completed [facility] Polio (IPV/OPV) 2006-04-20 00:00:00 Completed [facility] Varicella (varivax)(chicken pox) 2006-04-20 00:00:00 Completed [facility] DTAP 2006-04-20 00:00:00 Completed [facility] MMR 2006-04-20 00:00:00 Completed [facility] Polio (IPV/OPV) 2006-04-20 00:00:00 Completed [facility] Polio (IPV/OPV) 2006-04-20 00:00:00 Completed [facility] Varicella (varivax)(chicken pox) 2006-04-20 00:00:00 Completed [facility] DTAP 2006-04-20 00:00:00 Completed [facility] MMR 2006-04-20 00:00:00 Completed [facility] Varicella (varivax)(chicken pox) 2006-04-20 00:00:00 Completed [facility] DTAP 2006-04-20 00:00:00 Completed [facility] MMR 2006-04-20 00:00:00 Completed [facility] Polio (IPV/OPV) 2006-04-20 00:00:00 Completed [facility] Varicella (varivax)(chicken pox) 2006-04-20 00:00:00 Completed [facility] DTAP 2006-04-20 00:00:00 Completed [facility] MMR 2006-04-20 00:00:00 Completed [facility] Polio (IPV/OPV) 2006-04-20 00:00:00 Completed [facility] Varicella (varivax)(chicken pox) 2006-04-20 00:00:00 Completed [facility] DTAP 2006-04-20 00:00:00 Completed [facility] MMR 2006-04-20 00:00:00 Completed [facility] Polio (IPV/OPV) 2006-04-20 00:00:00 Completed [facility] Varicella (varivax)(chicken pox) 2006-04-20 00:00:00 Completed [facility] DTAP 2006-04-20 00:00:00 Completed [facility] MMR 2006-04-20 00:00:00 Completed [facility] Polio (IPV/OPV) 2006-04-20 00:00:00 Completed [facility] Polio (IPV/OPV) 2006-04-20 00:00:00 Completed [facility] Varicella (varivax)(chicken pox) 2006-04-20 00:00:00 Completed [facility] DTAP 2006-04-20 00:00:00 Completed [facility] MMR 2006-04-20 00:00:00 Completed [facility] Polio (IPV/OPV) 2006-04-20 00:00:00 Completed [facility] Varicella (varivax)(chicken pox) 2006-04-20 00:00:00 Completed [facility] DTAP 2006-04-20 00:00:00 Completed [facility] MMR 2006-04-20 00:00:00 Completed [facility] Varicella (varivax)(chicken pox) 2006-04-20 00:00:00 Completed [facility] DTAP 2006-04-20 00:00:00 Completed [facility] MMR 2006-04-20 00:00:00 Completed [facility] Polio (IPV/OPV) 2006-04-20 00:00:00 Completed [facility] Varicella (varivax)(chicken pox) 2006-04-20 00:00:00 Completed [facility] DTAP 2006-04-20 00:00:00 Completed [facility] MMR 2006-04-20 00:00:00 Completed [facility] Polio (IPV/OPV) 2006-04-20 00:00:00 Completed [facility] Varicella (varivax)(chicken pox) 2006-04-20 00:00:00 Completed [facility] DTAP 2006-04-20 00:00:00 Completed [facility] MMR 2006-04-20 00:00:00 Completed [facility] Polio (IPV/OPV) 2006-04-20 00:00:00 Completed [facility] Varicella (varivax)(chicken pox) 2006-04-20 00:00:00 Completed [facility] DTAP 2006-04-20 00:00:00 Completed [facility] MMR 2006-04-20 00:00:00 Completed [facility] Polio (IPV/OPV) 2006-04-20 00:00:00 Completed [facility] Varicella (varivax)(chicken pox) 2006-04-20 00:00:00 Completed [facility] DTAP 2006-04-20 00:00:00 Completed [facility] MMR 2006-04-20 00:00:00 Completed [facility] Polio (IPV/OPV) 2006-04-20 00:00:00 Completed [facility] Varicella (varivax)(chicken pox) 2006-04-20 00:00:00 Completed [facility] DTAP 2006-04-20 00:00:00 Completed [facility] MMR 2006-04-20 00:00:00 Completed [facility] Polio (IPV/OPV) 2006-04-20 00:00:00 Completed [facility] Varicella (varivax)(chicken pox) 2006-04-20 00:00:00 Completed [facility] DTAP 2006-04-20 00:00:00 Completed [facility] MMR 2006-04-20 00:00:00 Completed [facility] Polio (IPV/OPV) 2006-04-20 00:00:00 Completed [facility] Varicella (varivax)(chicken pox) 2006-04-20 00:00:00 Completed [facility] DTAP 2006-04-20 00:00:00 Completed [facility] MMR 2006-04-20 00:00:00 Completed [facility] Polio (IPV/OPV) 2006-04-20 00:00:00 Completed [facility] Varicella (varivax)(chicken pox) 2006-04-20 00:00:00 Completed [facility] DTAP 2006-04-20 00:00:00 Completed [facility] MMR 2006-04-20 00:00:00 Completed [facility] HEPATITIS A 2005-01-09 00:00:00 Completed [facility] HEPATITIS A 2005-01-09 00:00:00 Completed [facility] HEPATITIS A 2005-01-09 00:00:00 Completed [facility] HEPATITIS A 2005-01-09 00:00:00 Completed [facility] HEPATITIS A 2005-01-09 00:00:00 Completed [facility] HEPATITIS A 2005-01-09 00:00:00 Completed [facility] HEPATITIS A 2005-01-09 00:00:00 Completed [facility] HEPATITIS A 2005-01-09 00:00:00 Completed [facility] HEPATITIS A 2005-01-09 00:00:00 Completed [facility] HEPATITIS A 2005-01-09 00:00:00 Completed [facility] HEPATITIS A 2005-01-09 00:00:00 Completed [facility] HEPATITIS A 2005-01-09 00:00:00 Completed [facility] HEPATITIS A 2005-01-09 00:00:00 Completed [facility] HEPATITIS A 2005-01-09 00:00:00 Completed [facility] HEPATITIS A 2005-01-09 00:00:00 Completed [facility] HEPATITIS A 2005-01-09 00:00:00 Completed [facility] HEPATITIS A 2005-01-09 00:00:00 Completed [facility] HEPATITIS A 2005-01-09 00:00:00 Completed [facility] HEPATITIS A 2005-01-09 00:00:00 Completed [facility] HEPATITIS A 2005-01-09 00:00:00 Completed [facility] HEPATITIS A 2005-01-09 00:00:00 Completed [facility] HEPATITIS A 2005-01-09 00:00:00 Completed [facility] HEPATITIS A 2005-01-09 00:00:00 Completed [facility] HEPATITIS A 2005-01-09 00:00:00 Completed [facility] HEPATITIS A 2005-01-09 00:00:00 Completed [facility] HEPATITIS A 2005-01-09 00:00:00 Completed [facility] HEPATITIS A 2005-01-09 00:00:00 Completed [facility] HEPATITIS A 2005-01-09 00:00:00 Completed [facility] HEPATITIS A 2005-01-09 00:00:00 Completed [facility] HEPATITIS A 2005-01-09 00:00:00 Completed [facility] HEPATITIS A 2005-01-09 00:00:00 Completed [facility] HEPATITIS A 2005-01-09 00:00:00 Completed [facility] HEPATITIS A 2005-01-09 00:00:00 Completed [facility] HEPATITIS A 2005-01-09 00:00:00 Completed [facility] HEPATITIS A 2005-01-09 00:00:00 Completed [facility] HEPATITIS A 2005-01-09 00:00:00 Completed [facility] HEPATITIS A 2005-01-09 00:00:00 Completed [facility] HEPATITIS A 2005-01-09 00:00:00 Completed [facility] HEPATITIS A 2005-01-09 00:00:00 Completed [facility] HEPATITIS A 2005-01-09 00:00:00 Completed [facility] HEPATITIS A 2005-01-09 00:00:00 Completed [facility] HEPATITIS A 2005-01-09 00:00:00 Completed [facility] HEPATITIS A 2005-01-09 00:00:00 Completed [facility] HEPATITIS A 2005-01-09 00:00:00 Completed [facility] HEPATITIS A 2005-01-09 00:00:00 Completed [facility] HEPATITIS A 2005-01-09 00:00:00 Completed [facility] HEPATITIS A 2005-01-09 00:00:00 Completed [facility] HEPATITIS A 2005-01-09 00:00:00 Completed [facility] HEPATITIS A 2005-01-09 00:00:00 Completed [facility] HEPATITIS A 2005-01-09 00:00:00 Completed [facility] HEPATITIS A 2005-01-09 00:00:00 Completed [facility] HEPATITIS A 2005-01-09 00:00:00 Completed [facility] HEPATITIS A 2005-01-09 00:00:00 Completed [facility] HEPATITIS A 2005-01-09 00:00:00 Completed [facility] HEPATITIS A 2005-01-09 00:00:00 Completed [facility] HEPATITIS A 2005-01-09 00:00:00 Completed [facility] HEPATITIS A 2005-01-09 00:00:00 Completed [facility] HEPATITIS A 2005-01-09 00:00:00 Completed [facility] HEPATITIS A 2005-01-09 00:00:00 Completed [facility] HEPATITIS A 2005-01-09 00:00:00 Completed [facility] HEPATITIS A 2005-01-09 00:00:00 Completed [facility] HEPATITIS A 2005-01-09 00:00:00 Completed [facility] HEPATITIS A 2005-01-09 00:00:00 Completed [facility] HEPATITIS A 2005-01-09 00:00:00 Completed [facility] HEPATITIS A 2005-01-09 00:00:00 Completed [facility] HEPATITIS A 2005-01-09 00:00:00 Completed [facility] HEPATITIS A 2005-01-09 00:00:00 Completed [facility] HEPATITIS A 2005-01-09 00:00:00 Completed [facility] HEPATITIS A 2005-01-09 00:00:00 Completed [facility] HEPATITIS A 2005-01-09 00:00:00 Completed [facility] HEPATITIS A 2005-01-09 00:00:00 Completed [facility] HEPATITIS A 2005-01-09 00:00:00 Completed [facility] HEPATITIS A 2005-01-09 00:00:00 Completed [facility] HEPATITIS A 2005-01-09 00:00:00 Completed [facility] HEPATITIS A 2005-01-09 00:00:00 Completed [facility] HEPATITIS A 2005-01-09 00:00:00 Completed [facility] HEPATITIS A 2005-01-09 00:00:00 Completed [facility] HEPATITIS A 2005-01-09 00:00:00 Completed [facility] HEPATITIS A 2005-01-09 00:00:00 Completed [facility] HEPATITIS A 2005-01-09 00:00:00 Completed [facility] HEPATITIS A 2005-01-09 00:00:00 Completed [facility] HEPATITIS A 2005-01-09 00:00:00 Completed [facility] HEPATITIS A 2005-01-09 00:00:00 Completed [facility] HEPATITIS A 2005-01-09 00:00:00 Completed [facility] HEPATITIS A 2005-01-09 00:00:00 Completed [facility] HEPATITIS A 2005-01-09 00:00:00 Completed [facility] HEPATITIS A 2005-01-09 00:00:00 Completed [facility] HEPATITIS A 2005-01-09 00:00:00 Completed [facility] HEPATITIS A 2005-01-09 00:00:00 Completed [facility] HEPATITIS A 2005-01-09 00:00:00 Completed [facility] HEPATITIS A 2005-01-09 00:00:00 Completed [facility] HEPATITIS A 2005-01-09 00:00:00 Completed [facility] HEPATITIS A 2005-01-09 00:00:00 Completed [facility] HEPATITIS A 2005-01-09 00:00:00 Completed [facility] HEPATITIS A 2005-01-09 00:00:00 Completed [facility] HEPATITIS A 2005-01-09 00:00:00 Completed [facility] HEPATITIS A 2005-01-09 00:00:00 Completed [facility] HEPATITIS A 2005-01-09 00:00:00 Completed [facility] HEPATITIS A 2005-01-09 00:00:00 Completed [facility] HEPATITIS A 2005-01-09 00:00:00 Completed [facility] HEPATITIS A 2005-01-09 00:00:00 Completed [facility] HEPATITIS A 2005-01-09 00:00:00 Completed [facility] HEPATITIS A 2005-01-09 00:00:00 Completed [facility] HEPATITIS A 2004-05-28 00:00:00 Completed [facility] Pneumococcal 7 Conjugate, PCV7 (Prevnar7) 2004-05-28 00:00:00 Completed [facility] HEPATITIS A 2004-05-28 00:00:00 Completed [facility] Pneumococcal 7 Conjugate, PCV7 (Prevnar7) 2004-05-28 00:00:00 Completed [facility] HEPATITIS A 2004-05-28 00:00:00 Completed [facility] Pneumococcal 7 Conjugate, PCV7 (Prevnar7) 2004-05-28 00:00:00 Completed [facility] HEPATITIS A 2004-05-28 00:00:00 Completed [facility] Pneumococcal 7 Conjugate, PCV7 (Prevnar7) 2004-05-28 00:00:00 Completed [facility] Pneumococcal 7 Conjugate, PCV7 (Prevnar7) 2004-05-28 00:00:00 Completed [facility] HEPATITIS A 2004-05-28 00:00:00 Completed [facility] Pneumococcal 7 Conjugate, PCV7 (Prevnar7) 2004-05-28 00:00:00 Completed [facility] HEPATITIS A 2004-05-28 00:00:00 Completed [facility] Pneumococcal 7 Conjugate, PCV7 (Prevnar7) 2004-05-28 00:00:00 Completed [facility] HEPATITIS A 2004-05-28 00:00:00 Completed [facility] Pneumococcal 7 Conjugate, PCV7 (Prevnar7) 2004-05-28 00:00:00 Completed [facility] HEPATITIS A 2004-05-28 00:00:00 Completed [facility] Pneumococcal 7 Conjugate, PCV7 (Prevnar7) 2004-05-28 00:00:00 Completed [facility] HEPATITIS A 2004-05-28 00:00:00 Completed [facility] Pneumococcal 7 Conjugate, PCV7 (Prevnar7) 2004-05-28 00:00:00 Completed [facility] HEPATITIS A 2004-05-28 00:00:00 Completed [facility] HEPATITIS A 2004-05-28 00:00:00 Completed [facility] Pneumococcal 7 Conjugate, PCV7 (Prevnar7) 2004-05-28 00:00:00 Completed [facility] HEPATITIS A 2004-05-28 00:00:00 Completed [facility] Pneumococcal 7 Conjugate, PCV7 (Prevnar7) 2004-05-28 00:00:00 Completed [facility] HEPATITIS A 2004-05-28 00:00:00 Completed [facility] Pneumococcal 7 Conjugate, PCV7 (Prevnar7) 2004-05-28 00:00:00 Completed [facility] HEPATITIS A 2004-05-28 00:00:00 Completed [facility] Pneumococcal 7 Conjugate, PCV7 (Prevnar7) 2004-05-28 00:00:00 Completed [facility] Pneumococcal 7 Conjugate, PCV7 (Prevnar7) 2004-05-28 00:00:00 Completed [facility] HEPATITIS A 2004-05-28 00:00:00 Completed [facility] Pneumococcal 7 Conjugate, PCV7 (Prevnar7) 2004-05-28 00:00:00 Completed [facility] HEPATITIS A 2004-05-28 00:00:00 Completed [facility] Pneumococcal 7 Conjugate, PCV7 (Prevnar7) 2004-05-28 00:00:00 Completed [facility] HEPATITIS A 2004-05-28 00:00:00 Completed [facility] Pneumococcal 7 Conjugate, PCV7 (Prevnar7) 2004-05-28 00:00:00 Completed [facility] HEPATITIS A 2004-05-28 00:00:00 Completed [facility] Pneumococcal 7 Conjugate, PCV7 (Prevnar7) 2004-05-28 00:00:00 Completed [facility] HEPATITIS A 2004-05-28 00:00:00 Completed [facility] Pneumococcal 7 Conjugate, PCV7 (Prevnar7) 2004-05-28 00:00:00 Completed [facility] HEPATITIS A 2004-05-28 00:00:00 Completed [facility] Pneumococcal 7 Conjugate, PCV7 (Prevnar7) 2004-05-28 00:00:00 Completed [facility] HEPATITIS A 2004-05-28 00:00:00 Completed [facility] Pneumococcal 7 Conjugate, PCV7 (Prevnar7) 2004-05-28 00:00:00 Completed [facility] HEPATITIS A 2004-05-28 00:00:00 Completed [facility] HEPATITIS A 2004-05-28 00:00:00 Completed [facility] Pneumococcal 7 Conjugate, PCV7 (Prevnar7) 2004-05-28 00:00:00 Completed [facility] HEPATITIS A 2004-05-28 00:00:00 Completed [facility] Pneumococcal 7 Conjugate, PCV7 (Prevnar7) 2004-05-28 00:00:00 Completed [facility] HEPATITIS A 2004-05-28 00:00:00 Completed [facility] Pneumococcal 7 Conjugate, PCV7 (Prevnar7) 2004-05-28 00:00:00 Completed [facility] HEPATITIS A 2004-05-28 00:00:00 Completed [facility] Pneumococcal 7 Conjugate, PCV7 (Prevnar7) 2004-05-28 00:00:00 Completed [facility] Pneumococcal 7 Conjugate, PCV7 (Prevnar7) 2004-05-28 00:00:00 Completed [facility] HEPATITIS A 2004-05-28 00:00:00 Completed [facility] Pneumococcal 7 Conjugate, PCV7 (Prevnar7) 2004-05-28 00:00:00 Completed [facility] HEPATITIS A 2004-05-28 00:00:00 Completed [facility] Pneumococcal 7 Conjugate, PCV7 (Prevnar7) 2004-05-28 00:00:00 Completed [facility] HEPATITIS A 2004-05-28 00:00:00 Completed [facility] Pneumococcal 7 Conjugate, PCV7 (Prevnar7) 2004-05-28 00:00:00 Completed [facility] HEPATITIS A 2004-05-28 00:00:00 Completed [facility] Pneumococcal 7 Conjugate, PCV7 (Prevnar7) 2004-05-28 00:00:00 Completed [facility] HEPATITIS A 2004-05-28 00:00:00 Completed [facility] HEPATITIS A 2004-05-28 00:00:00 Completed [facility] Pneumococcal 7 Conjugate, PCV7 (Prevnar7) 2004-05-28 00:00:00 Completed [facility] HEPATITIS A 2004-05-28 00:00:00 Completed [facility] Pneumococcal 7 Conjugate, PCV7 (Prevnar7) 2004-05-28 00:00:00 Completed [facility] HEPATITIS A 2004-05-28 00:00:00 Completed [facility] Pneumococcal 7 Conjugate, PCV7 (Prevnar7) 2004-05-28 00:00:00 Completed [facility] HEPATITIS A 2004-05-28 00:00:00 Completed [facility] Pneumococcal 7 Conjugate, PCV7 (Prevnar7) 2004-05-28 00:00:00 Completed [facility] Pneumococcal 7 Conjugate, PCV7 (Prevnar7) 2004-05-28 00:00:00 Completed [facility] HEPATITIS A 2004-05-28 00:00:00 Completed [facility] Pneumococcal 7 Conjugate, PCV7 (Prevnar7) 2004-05-28 00:00:00 Completed [facility] HEPATITIS A 2004-05-28 00:00:00 Completed [facility] Pneumococcal 7 Conjugate, PCV7 (Prevnar7) 2004-05-28 00:00:00 Completed [facility] HEPATITIS A 2004-05-28 00:00:00 Completed [facility] Pneumococcal 7 Conjugate, PCV7 (Prevnar7) 2004-05-28 00:00:00 Completed [facility] HEPATITIS A 2004-05-28 00:00:00 Completed [facility] Pneumococcal 7 Conjugate, PCV7 (Prevnar7) 2004-05-28 00:00:00 Completed [facility] HEPATITIS A 2004-05-28 00:00:00 Completed [facility] Pneumococcal 7 Conjugate, PCV7 (Prevnar7) 2004-05-28 00:00:00 Completed [facility] HEPATITIS A 2004-05-28 00:00:00 Completed [facility] HEPATITIS A 2004-05-28 00:00:00 Completed [facility] Pneumococcal 7 Conjugate, PCV7 (Prevnar7) 2004-05-28 00:00:00 Completed [facility] HEPATITIS A 2004-05-28 00:00:00 Completed [facility] Pneumococcal 7 Conjugate, PCV7 (Prevnar7) 2004-05-28 00:00:00 Completed [facility] HEPATITIS A 2004-05-28 00:00:00 Completed [facility] Pneumococcal 7 Conjugate, PCV7 (Prevnar7) 2004-05-28 00:00:00 Completed [facility] HEPATITIS A 2004-05-28 00:00:00 Completed [facility] Pneumococcal 7 Conjugate, PCV7 (Prevnar7) 2004-05-28 00:00:00 Completed [facility] Pneumococcal 7 Conjugate, PCV7 (Prevnar7) 2004-05-28 00:00:00 Completed [facility] HEPATITIS A 2004-05-28 00:00:00 Completed [facility] Pneumococcal 7 Conjugate, PCV7 (Prevnar7) 2004-05-28 00:00:00 Completed [facility] HEPATITIS A 2004-05-28 00:00:00 Completed [facility] Pneumococcal 7 Conjugate, PCV7 (Prevnar7) 2004-05-28 00:00:00 Completed [facility] HEPATITIS A 2004-05-28 00:00:00 Completed [facility] HEPATITIS A 2004-05-28 00:00:00 Completed [facility] Pneumococcal 7 Conjugate, PCV7 (Prevnar7) 2004-05-28 00:00:00 Completed [facility] HEPATITIS A 2004-05-28 00:00:00 Completed [facility] Pneumococcal 7 Conjugate, PCV7 (Prevnar7) 2004-05-28 00:00:00 Completed [facility] HEPATITIS A 2004-05-28 00:00:00 Completed [facility] Pneumococcal 7 Conjugate, PCV7 (Prevnar7) 2004-05-28 00:00:00 Completed [facility] HEPATITIS A 2004-05-28 00:00:00 Completed [facility] Pneumococcal 7 Conjugate, PCV7 (Prevnar7) 2004-05-28 00:00:00 Completed [facility] Pneumococcal 7 Conjugate, PCV7 (Prevnar7) 2004-05-28 00:00:00 Completed [facility] HEPATITIS A 2004-05-28 00:00:00 Completed [facility] Pneumococcal 7 Conjugate, PCV7 (Prevnar7) 2004-05-28 00:00:00 Completed [facility] HEPATITIS A 2004-05-28 00:00:00 Completed [facility] Pneumococcal 7 Conjugate, PCV7 (Prevnar7) 2004-05-28 00:00:00 Completed [facility] HEPATITIS A 2004-05-28 00:00:00 Completed [facility] Pneumococcal 7 Conjugate, PCV7 (Prevnar7) 2004-05-28 00:00:00 Completed [facility] HEPATITIS A 2004-05-28 00:00:00 Completed [facility] Pneumococcal 7 Conjugate, PCV7 (Prevnar7) 2004-05-28 00:00:00 Completed [facility] HEPATITIS A 2004-05-28 00:00:00 Completed [facility] HEPATITIS A 2004-05-28 00:00:00 Completed [facility] Pneumococcal 7 Conjugate, PCV7 (Prevnar7) 2004-05-28 00:00:00 Completed [facility] HEPATITIS A 2004-05-28 00:00:00 Completed [facility] Pneumococcal 7 Conjugate, PCV7 (Prevnar7) 2004-05-28 00:00:00 Completed [facility] HEPATITIS A 2004-05-28 00:00:00 Completed [facility] Pneumococcal 7 Conjugate, PCV7 (Prevnar7) 2004-05-28 00:00:00 Completed [facility] HEPATITIS A 2004-05-28 00:00:00 Completed [facility] Pneumococcal 7 Conjugate, PCV7 (Prevnar7) 2004-05-28 00:00:00 Completed [facility] Pneumococcal 7 Conjugate, PCV7 (Prevnar7) 2004-05-28 00:00:00 Completed [facility] HEPATITIS A 2004-05-28 00:00:00 Completed [facility] Pneumococcal 7 Conjugate, PCV7 (Prevnar7) 2004-05-28 00:00:00 Completed [facility] HEPATITIS A 2004-05-28 00:00:00 Completed [facility] Pneumococcal 7 Conjugate, PCV7 (Prevnar7) 2004-05-28 00:00:00 Completed [facility] HEPATITIS A 2004-05-28 00:00:00 Completed [facility] Pneumococcal 7 Conjugate, PCV7 (Prevnar7) 2004-05-28 00:00:00 Completed [facility] HEPATITIS A 2004-05-28 00:00:00 Completed [facility] Pneumococcal 7 Conjugate, PCV7 (Prevnar7) 2004-05-28 00:00:00 Completed [facility] HEPATITIS A 2004-05-28 00:00:00 Completed [facility] HEPATITIS A 2004-05-28 00:00:00 Completed [facility] Pneumococcal 7 Conjugate, PCV7 (Prevnar7) 2004-05-28 00:00:00 Completed [facility] HEPATITIS A 2004-05-28 00:00:00 Completed [facility] Pneumococcal 7 Conjugate, PCV7 (Prevnar7) 2004-05-28 00:00:00 Completed [facility] HEPATITIS A 2004-05-28 00:00:00 Completed [facility] Pneumococcal 7 Conjugate, PCV7 (Prevnar7) 2004-05-28 00:00:00 Completed [facility] HEPATITIS A 2004-05-28 00:00:00 Completed [facility] Pneumococcal 7 Conjugate, PCV7 (Prevnar7) 2004-05-28 00:00:00 Completed [facility] HEPATITIS A 2004-05-28 00:00:00 Completed [facility] Pneumococcal 7 Conjugate, PCV7 (Prevnar7) 2004-05-28 00:00:00 Completed [facility] Pneumococcal 7 Conjugate, PCV7 (Prevnar7) 2004-05-28 00:00:00 Completed [facility] HEPATITIS A 2004-05-28 00:00:00 Completed [facility] Pneumococcal 7 Conjugate, PCV7 (Prevnar7) 2004-05-28 00:00:00 Completed [facility] HEPATITIS A 2004-05-28 00:00:00 Completed [facility] Pneumococcal 7 Conjugate, PCV7 (Prevnar7) 2004-05-28 00:00:00 Completed [facility] HEPATITIS A 2004-05-28 00:00:00 Completed [facility] Pneumococcal 7 Conjugate, PCV7 (Prevnar7) 2004-05-28 00:00:00 Completed [facility] HEPATITIS A 2004-05-28 00:00:00 Completed [facility] HEPATITIS A 2004-05-28 00:00:00 Completed [facility] Pneumococcal 7 Conjugate, PCV7 (Prevnar7) 2004-05-28 00:00:00 Completed [facility] HEPATITIS A 2004-05-28 00:00:00 Completed [facility] Pneumococcal 7 Conjugate, PCV7 (Prevnar7) 2004-05-28 00:00:00 Completed [facility] HEPATITIS A 2004-05-28 00:00:00 Completed [facility] Pneumococcal 7 Conjugate, PCV7 (Prevnar7) 2004-05-28 00:00:00 Completed [facility] HEPATITIS A 2004-05-28 00:00:00 Completed [facility] Pneumococcal 7 Conjugate, PCV7 (Prevnar7) 2004-05-28 00:00:00 Completed [facility] HEPATITIS A 2004-05-28 00:00:00 Completed [facility] Pneumococcal 7 Conjugate, PCV7 (Prevnar7) 2004-05-28 00:00:00 Completed [facility] Pneumococcal 7 Conjugate, PCV7 (Prevnar7) 2004-05-28 00:00:00 Completed [facility] HEPATITIS A 2004-05-28 00:00:00 Completed [facility] Pneumococcal 7 Conjugate, PCV7 (Prevnar7) 2004-05-28 00:00:00 Completed [facility] HEPATITIS A 2004-05-28 00:00:00 Completed [facility] Pneumococcal 7 Conjugate, PCV7 (Prevnar7) 2004-05-28 00:00:00 Completed [facility] HEPATITIS A 2004-05-28 00:00:00 Completed [facility] Pneumococcal 7 Conjugate, PCV7 (Prevnar7) 2004-05-28 00:00:00 Completed [facility] HEPATITIS A 2004-05-28 00:00:00 Completed [facility] Pneumococcal 7 Conjugate, PCV7 (Prevnar7) 2004-05-28 00:00:00 Completed [facility] HEPATITIS A 2004-05-28 00:00:00 Completed [facility] HEPATITIS A 2004-05-28 00:00:00 Completed [facility] Pneumococcal 7 Conjugate, PCV7 (Prevnar7) 2004-05-28 00:00:00 Completed [facility] HEPATITIS A 2004-05-28 00:00:00 Completed [facility] Pneumococcal 7 Conjugate, PCV7 (Prevnar7) 2004-05-28 00:00:00 Completed [facility] HEPATITIS A 2004-05-28 00:00:00 Completed [facility] Pneumococcal 7 Conjugate, PCV7 (Prevnar7) 2004-05-28 00:00:00 Completed [facility] Pneumococcal 7 Conjugate, PCV7 (Prevnar7) 2004-05-28 00:00:00 Completed [facility] HEPATITIS A 2004-05-28 00:00:00 Completed [facility] Pneumococcal 7 Conjugate, PCV7 (Prevnar7) 2004-05-28 00:00:00 Completed [facility] HEPATITIS A 2004-05-28 00:00:00 Completed [facility] HEPATITIS A 2004-05-28 00:00:00 Completed [facility] Pneumococcal 7 Conjugate, PCV7 (Prevnar7) 2004-05-28 00:00:00 Completed [facility] HEPATITIS A 2004-05-28 00:00:00 Completed [facility] Pneumococcal 7 Conjugate, PCV7 (Prevnar7) 2004-05-28 00:00:00 Completed [facility] HEPATITIS A 2004-05-28 00:00:00 Completed [facility] Pneumococcal 7 Conjugate, PCV7 (Prevnar7) 2004-05-28 00:00:00 Completed [facility] HEPATITIS A 2004-05-28 00:00:00 Completed [facility] Pneumococcal 7 Conjugate, PCV7 (Prevnar7) 2004-05-28 00:00:00 Completed [facility] HEPATITIS A 2004-05-28 00:00:00 Completed [facility] Pneumococcal 7 Conjugate, PCV7 (Prevnar7) 2004-05-28 00:00:00 Completed [facility] Pneumococcal 7 Conjugate, PCV7 (Prevnar7) 2004-05-28 00:00:00 Completed [facility] HEPATITIS A 2004-05-28 00:00:00 Completed [facility] Pneumococcal 7 Conjugate, PCV7 (Prevnar7) 2004-05-28 00:00:00 Completed [facility] HEPATITIS A 2004-05-28 00:00:00 Completed [facility] Pneumococcal 7 Conjugate, PCV7 (Prevnar7) 2004-05-28 00:00:00 Completed [facility] HEPATITIS A 2004-05-28 00:00:00 Completed [facility] Pneumococcal 7 Conjugate, PCV7 (Prevnar7) 2004-05-28 00:00:00 Completed [facility] HEPATITIS A 2004-05-28 00:00:00 Completed [facility] Pneumococcal 7 Conjugate, PCV7 (Prevnar7) 2004-05-28 00:00:00 Completed [facility] HEPATITIS A 2004-05-28 00:00:00 Completed [facility] Pneumococcal 7 Conjugate, PCV7 (Prevnar7) 2004-05-28 00:00:00 Completed [facility] HEPATITIS A 2004-05-28 00:00:00 Completed [facility] Pneumococcal 7 Conjugate, PCV7 (Prevnar7) 2004-05-28 00:00:00 Completed [facility] HEPATITIS A 2004-05-28 00:00:00 Completed [facility] HEPATITIS A 2004-05-28 00:00:00 Completed [facility] Pneumococcal 7 Conjugate, PCV7 (Prevnar7) 2004-05-28 00:00:00 Completed [facility] HIB 4 Dose Schedule 2003-08-04 00:00:00 Completed [facility] DTAP 2003-08-04 00:00:00 Completed [facility] HIB 4 Dose Schedule 2003-08-04 00:00:00 Completed [facility] DTAP 2003-08-04 00:00:00 Completed [facility] HIB 4 Dose Schedule 2003-08-04 00:00:00 Completed [facility] DTAP 2003-08-04 00:00:00 Completed [facility] HIB 4 Dose Schedule 2003-08-04 00:00:00 Completed [facility] DTAP 2003-08-04 00:00:00 Completed [facility] HIB 4 Dose Schedule 2003-08-04 00:00:00 Completed [facility] DTAP 2003-08-04 00:00:00 Completed [facility] HIB 4 Dose Schedule 2003-08-04 00:00:00 Completed [facility] DTAP 2003-08-04 00:00:00 Completed [facility] HIB 4 Dose Schedule 2003-08-04 00:00:00 Completed [facility] DTAP 2003-08-04 00:00:00 Completed [facility] HIB 4 Dose Schedule 2003-08-04 00:00:00 Completed [facility] DTAP 2003-08-04 00:00:00 Completed [facility] DTAP 2003-08-04 00:00:00 Completed [facility] HIB 4 Dose Schedule 2003-08-04 00:00:00 Completed [facility] HIB 4 Dose Schedule 2003-08-04 00:00:00 Completed [facility] DTAP 2003-08-04 00:00:00 Completed [facility] HIB 4 Dose Schedule 2003-08-04 00:00:00 Completed [facility] DTAP 2003-08-04 00:00:00 Completed [facility] HIB 4 Dose Schedule 2003-08-04 00:00:00 Completed [facility] DTAP 2003-08-04 00:00:00 Completed [facility] HIB 4 Dose Schedule 2003-08-04 00:00:00 Completed [facility] DTAP 2003-08-04 00:00:00 Completed [facility] HIB 4 Dose Schedule 2003-08-04 00:00:00 Completed [facility] DTAP 2003-08-04 00:00:00 Completed [facility] HIB 4 Dose Schedule 2003-08-04 00:00:00 Completed [facility] DTAP 2003-08-04 00:00:00 Completed [facility] HIB 4 Dose Schedule 2003-08-04 00:00:00 Completed [facility] DTAP 2003-08-04 00:00:00 Completed [facility] HIB 4 Dose Schedule 2003-08-04 00:00:00 Completed [facility] DTAP 2003-08-04 00:00:00 Completed [facility] HIB 4 Dose Schedule 2003-08-04 00:00:00 Completed [facility] DTAP 2003-08-04 00:00:00 Completed [facility] HIB 4 Dose Schedule 2003-08-04 00:00:00 Completed [facility] DTAP 2003-08-04 00:00:00 Completed [facility] HIB 4 Dose Schedule 2003-08-04 00:00:00 Completed [facility] DTAP 2003-08-04 00:00:00 Completed [facility] DTAP 2003-08-04 00:00:00 Completed [facility] HIB 4 Dose Schedule 2003-08-04 00:00:00 Completed [facility] HIB 4 Dose Schedule 2003-08-04 00:00:00 Completed [facility] DTAP 2003-08-04 00:00:00 Completed [facility] HIB 4 Dose Schedule 2003-08-04 00:00:00 Completed [facility] DTAP 2003-08-04 00:00:00 Completed [facility] HIB 4 Dose Schedule 2003-08-04 00:00:00 Completed [facility] DTAP 2003-08-04 00:00:00 Completed [facility] HIB 4 Dose Schedule 2003-08-04 00:00:00 Completed [facility] DTAP 2003-08-04 00:00:00 Completed [facility] HIB 4 Dose Schedule 2003-08-04 00:00:00 Completed [facility] DTAP 2003-08-04 00:00:00 Completed [facility] HIB 4 Dose Schedule 2003-08-04 00:00:00 Completed [facility] DTAP 2003-08-04 00:00:00 Completed [facility] HIB 4 Dose Schedule 2003-08-04 00:00:00 Completed [facility] DTAP 2003-08-04 00:00:00 Completed [facility] HIB 4 Dose Schedule 2003-08-04 00:00:00 Completed [facility] DTAP 2003-08-04 00:00:00 Completed [facility] DTAP 2003-08-04 00:00:00 Completed [facility] HIB 4 Dose Schedule 2003-08-04 00:00:00 Completed [facility] HIB 4 Dose Schedule 2003-08-04 00:00:00 Completed [facility] DTAP 2003-08-04 00:00:00 Completed [facility] HIB 4 Dose Schedule 2003-08-04 00:00:00 Completed [facility] DTAP 2003-08-04 00:00:00 Completed [facility] HIB 4 Dose Schedule 2003-08-04 00:00:00 Completed [facility] DTAP 2003-08-04 00:00:00 Completed [facility] HIB 4 Dose Schedule 2003-08-04 00:00:00 Completed [facility] DTAP 2003-08-04 00:00:00 Completed [facility] HIB 4 Dose Schedule 2003-08-04 00:00:00 Completed [facility] DTAP 2003-08-04 00:00:00 Completed [facility] HIB 4 Dose Schedule 2003-08-04 00:00:00 Completed [facility] DTAP 2003-08-04 00:00:00 Completed [facility] HIB 4 Dose Schedule 2003-08-04 00:00:00 Completed [facility] DTAP 2003-08-04 00:00:00 Completed [facility] HIB 4 Dose Schedule 2003-08-04 00:00:00 Completed [facility] DTAP 2003-08-04 00:00:00 Completed [facility] HIB 4 Dose Schedule 2003-08-04 00:00:00 Completed [facility] DTAP 2003-08-04 00:00:00 Completed [facility] DTAP 2003-08-04 00:00:00 Completed [facility] HIB 4 Dose Schedule 2003-08-04 00:00:00 Completed [facility] HIB 4 Dose Schedule 2003-08-04 00:00:00 Completed [facility] DTAP 2003-08-04 00:00:00 Completed [facility] HIB 4 Dose Schedule 2003-08-04 00:00:00 Completed [facility] DTAP 2003-08-04 00:00:00 Completed [facility] HIB 4 Dose Schedule 2003-08-04 00:00:00 Completed [facility] DTAP 2003-08-04 00:00:00 Completed [facility] HIB 4 Dose Schedule 2003-08-04 00:00:00 Completed [facility] DTAP 2003-08-04 00:00:00 Completed [facility] HIB 4 Dose Schedule 2003-08-04 00:00:00 Completed [facility] DTAP 2003-08-04 00:00:00 Completed [facility] HIB 4 Dose Schedule 2003-08-04 00:00:00 Completed [facility] DTAP 2003-08-04 00:00:00 Completed [facility] HIB 4 Dose Schedule 2003-08-04 00:00:00 Completed [facility] DTAP 2003-08-04 00:00:00 Completed [facility] DTAP 2003-08-04 00:00:00 Completed [facility] HIB 4 Dose Schedule 2003-08-04 00:00:00 Completed [facility] HIB 4 Dose Schedule 2003-08-04 00:00:00 Completed [facility] DTAP 2003-08-04 00:00:00 Completed [facility] HIB 4 Dose Schedule 2003-08-04 00:00:00 Completed [facility] DTAP 2003-08-04 00:00:00 Completed [facility] HIB 4 Dose Schedule 2003-08-04 00:00:00 Completed [facility] DTAP 2003-08-04 00:00:00 Completed [facility] HIB 4 Dose Schedule 2003-08-04 00:00:00 Completed [facility] DTAP 2003-08-04 00:00:00 Completed [facility] HIB 4 Dose Schedule 2003-08-04 00:00:00 Completed [facility] DTAP 2003-08-04 00:00:00 Completed [facility] HIB 4 Dose Schedule 2003-08-04 00:00:00 Completed [facility] DTAP 2003-08-04 00:00:00 Completed [facility] HIB 4 Dose Schedule 2003-08-04 00:00:00 Completed [facility] DTAP 2003-08-04 00:00:00 Completed [facility] DTAP 2003-08-04 00:00:00 Completed [facility] HIB 4 Dose Schedule 2003-08-04 00:00:00 Completed [facility] HIB 4 Dose Schedule 2003-08-04 00:00:00 Completed [facility] DTAP 2003-08-04 00:00:00 Completed [facility] HIB 4 Dose Schedule 2003-08-04 00:00:00 Completed [facility] DTAP 2003-08-04 00:00:00 Completed [facility] HIB 4 Dose Schedule 2003-08-04 00:00:00 Completed [facility] DTAP 2003-08-04 00:00:00 Completed [facility] HIB 4 Dose Schedule 2003-08-04 00:00:00 Completed [facility] DTAP 2003-08-04 00:00:00 Completed [facility] HIB 4 Dose Schedule 2003-08-04 00:00:00 Completed [facility] DTAP 2003-08-04 00:00:00 Completed [facility] HIB 4 Dose Schedule 2003-08-04 00:00:00 Completed [facility] DTAP 2003-08-04 00:00:00 Completed [facility] HIB 4 Dose Schedule 2003-08-04 00:00:00 Completed [facility] DTAP 2003-08-04 00:00:00 Completed [facility] HIB 4 Dose Schedule 2003-08-04 00:00:00 Completed [facility] DTAP 2003-08-04 00:00:00 Completed [facility] HIB 4 Dose Schedule 2003-08-04 00:00:00 Completed [facility] DTAP 2003-08-04 00:00:00 Completed [facility] DTAP 2003-08-04 00:00:00 Completed [facility] HIB 4 Dose Schedule 2003-08-04 00:00:00 Completed [facility] HIB 4 Dose Schedule 2003-08-04 00:00:00 Completed [facility] DTAP 2003-08-04 00:00:00 Completed [facility] HIB 4 Dose Schedule 2003-08-04 00:00:00 Completed [facility] DTAP 2003-08-04 00:00:00 Completed [facility] HIB 4 Dose Schedule 2003-08-04 00:00:00 Completed [facility] DTAP 2003-08-04 00:00:00 Completed [facility] HIB 4 Dose Schedule 2003-08-04 00:00:00 Completed [facility] DTAP 2003-08-04 00:00:00 Completed [facility] HIB 4 Dose Schedule 2003-08-04 00:00:00 Completed [facility] DTAP 2003-08-04 00:00:00 Completed [facility] HIB 4 Dose Schedule 2003-08-04 00:00:00 Completed [facility] DTAP 2003-08-04 00:00:00 Completed [facility] HIB 4 Dose Schedule 2003-08-04 00:00:00 Completed [facility] DTAP 2003-08-04 00:00:00 Completed [facility] HIB 4 Dose Schedule 2003-08-04 00:00:00 Completed [facility] DTAP 2003-08-04 00:00:00 Completed [facility] DTAP 2003-08-04 00:00:00 Completed [facility] HIB 4 Dose Schedule 2003-08-04 00:00:00 Completed [facility] HIB 4 Dose Schedule 2003-08-04 00:00:00 Completed [facility] DTAP 2003-08-04 00:00:00 Completed [facility] HIB 4 Dose Schedule 2003-08-04 00:00:00 Completed [facility] DTAP 2003-08-04 00:00:00 Completed [facility] HIB 4 Dose Schedule 2003-08-04 00:00:00 Completed [facility] DTAP 2003-08-04 00:00:00 Completed [facility] HIB 4 Dose Schedule 2003-08-04 00:00:00 Completed [facility] DTAP 2003-08-04 00:00:00 Completed [facility] HIB 4 Dose Schedule 2003-08-04 00:00:00 Completed [facility] DTAP 2003-08-04 00:00:00 Completed [facility] HIB 4 Dose Schedule 2003-08-04 00:00:00 Completed [facility] DTAP 2003-08-04 00:00:00 Completed [facility] HIB 4 Dose Schedule 2003-08-04 00:00:00 Completed [facility] DTAP 2003-08-04 00:00:00 Completed [facility] HIB 4 Dose Schedule 2003-08-04 00:00:00 Completed [facility] DTAP 2003-08-04 00:00:00 Completed [facility] DTAP 2003-08-04 00:00:00 Completed [facility] HIB 4 Dose Schedule 2003-08-04 00:00:00 Completed [facility] HIB 4 Dose Schedule 2003-08-04 00:00:00 Completed [facility] DTAP 2003-08-04 00:00:00 Completed [facility] HIB 4 Dose Schedule 2003-08-04 00:00:00 Completed [facility] DTAP 2003-08-04 00:00:00 Completed [facility] HIB 4 Dose Schedule 2003-08-04 00:00:00 Completed [facility] DTAP 2003-08-04 00:00:00 Completed [facility] HIB 4 Dose Schedule 2003-08-04 00:00:00 Completed [facility] DTAP 2003-08-04 00:00:00 Completed [facility] DTAP 2003-08-04 00:00:00 Completed [facility] HIB 4 Dose Schedule 2003-08-04 00:00:00 Completed [facility] HIB 4 Dose Schedule 2003-08-04 00:00:00 Completed [facility] DTAP 2003-08-04 00:00:00 Completed [facility] HIB 4 Dose Schedule 2003-08-04 00:00:00 Completed [facility] DTAP 2003-08-04 00:00:00 Completed [facility] HIB 4 Dose Schedule 2003-08-04 00:00:00 Completed [facility] DTAP 2003-08-04 00:00:00 Completed [facility] HIB 4 Dose Schedule 2003-08-04 00:00:00 Completed [facility] DTAP 2003-08-04 00:00:00 Completed [facility] HIB 4 Dose Schedule 2003-08-04 00:00:00 Completed [facility] DTAP 2003-08-04 00:00:00 Completed [facility] HIB 4 Dose Schedule 2003-08-04 00:00:00 Completed [facility] DTAP 2003-08-04 00:00:00 Completed [facility] HIB 4 Dose Schedule 2003-08-04 00:00:00 Completed [facility] DTAP 2003-08-04 00:00:00 Completed [facility] HIB 4 Dose Schedule 2003-08-04 00:00:00 Completed [facility] DTAP 2003-08-04 00:00:00 Completed [facility] HIB 4 Dose Schedule 2003-08-04 00:00:00 Completed [facility] DTAP 2003-08-04 00:00:00 Completed [facility] HIB 4 Dose Schedule 2003-08-04 00:00:00 Completed [facility] DTAP 2003-08-04 00:00:00 Completed [facility] HIB 4 Dose Schedule 2003-08-04 00:00:00 Completed [facility] DTAP 2003-08-04 00:00:00 Completed [facility] HIB 4 Dose Schedule 2003-08-04 00:00:00 Completed [facility] DTAP 2003-08-04 00:00:00 Completed [facility] DTAP 2003-08-04 00:00:00 Completed [facility] HIB 4 Dose Schedule 2003-08-04 00:00:00 Completed [facility] HIB 4 Dose Schedule 2003-08-04 00:00:00 Completed [facility] DTAP 2003-08-04 00:00:00 Completed [facility] MMR 2003-05-05 00:00:00 Completed [facility] Polio (IPV/OPV) 2003-05-05 00:00:00 Completed [facility] Pneumococcal 7 Conjugate, PCV7 (Prevnar7) 2003-05-05 00:00:00 Completed [facility] MMR 2003-05-05 00:00:00 Completed [facility] MMR 2003-05-05 00:00:00 Completed [facility] Polio (IPV/OPV) 2003-05-05 00:00:00 Completed [facility] Pneumococcal 7 Conjugate, PCV7 (Prevnar7) 2003-05-05 00:00:00 Completed [facility] Polio (IPV/OPV) 2003-05-05 00:00:00 Completed [facility] MMR 2003-05-05 00:00:00 Completed [facility] Polio (IPV/OPV) 2003-05-05 00:00:00 Completed [facility] Pneumococcal 7 Conjugate, PCV7 (Prevnar7) 2003-05-05 00:00:00 Completed [facility] MMR 2003-05-05 00:00:00 Completed [facility] Polio (IPV/OPV) 2003-05-05 00:00:00 Completed [facility] Pneumococcal 7 Conjugate, PCV7 (Prevnar7) 2003-05-05 00:00:00 Completed [facility] Pneumococcal 7 Conjugate, PCV7 (Prevnar7) 2003-05-05 00:00:00 Completed [facility] 2003-05-05 00:00:00 Completed [facility] Polio (IPV/OPV) 2003-05-05 00:00:00 Completed [facility] Pneumococcal 7 Conjugate, PCV7 (Prevnar7) 2003-05-05 00:00:00 Completed [facility] 2003-05-05 00:00:00 Completed [facility] Polio (IPV/OPV) 2003-05-05 00:00:00 Completed [facility] Pneumococcal 7 Conjugate, PCV7 (Prevnar7) 2003-05-05 00:00:00 Completed [facility] 2003-05-05 00:00:00 Completed [facility] Polio (IPV/OPV) 2003-05-05 00:00:00 Completed [facility] Pneumococcal 7 Conjugate, PCV7 (Prevnar7) 2003-05-05 00:00:00 Completed [facility] 2003-05-05 00:00:00 Completed [facility] Polio (IPV/OPV) 2003-05-05 00:00:00 Completed [facility] Pneumococcal 7 Conjugate, PCV7 (Prevnar7) 2003-05-05 00:00:00 Completed [facility] 2003-05-05 00:00:00 Completed [facility] Polio (IPV/OPV) 2003-05-05 00:00:00 Completed [facility] Pneumococcal 7 Conjugate, PCV7 (Prevnar7) 2003-05-05 00:00:00 Completed [facility] MMR 2003-05-05 00:00:00 Completed [facility] Polio (IPV/OPV) 2003-05-05 00:00:00 Completed [facility] Pneumococcal 7 Conjugate, PCV7 (Prevnar7) 2003-05-05 00:00:00 Completed [facility] MMR 2003-05-05 00:00:00 Completed [facility] 2003-05-05 00:00:00 Completed [facility] Polio (IPV/OPV) 2003-05-05 00:00:00 Completed [facility] Pneumococcal 7 Conjugate, PCV7 (Prevnar7) 2003-05-05 00:00:00 Completed [facility] MMR 2003-05-05 00:00:00 Completed [facility] Polio (IPV/OPV) 2003-05-05 00:00:00 Completed [facility] Polio (IPV/OPV) 2003-05-05 00:00:00 Completed [facility] Pneumococcal 7 Conjugate, PCV7 (Prevnar7) 2003-05-05 00:00:00 Completed [facility] MMR 2003-05-05 00:00:00 Completed [facility] Polio (IPV/OPV) 2003-05-05 00:00:00 Completed [facility] Pneumococcal 7 Conjugate, PCV7 (Prevnar7) 2003-05-05 00:00:00 Completed [facility] Pneumococcal 7 Conjugate, PCV7 (Prevnar7) 2003-05-05 00:[facility] [facility] 2003-05-05 00:00:00 Completed [facility] Polio (IPV/OPV) 2003-05-05 00:00:00 Completed [facility] Pneumococcal 7 Conjugate, PCV7 (Prevnar7) 2003-05-05 00:00:00 Completed [facility] MMR 2003-05-05 00:00:00 Completed [facility] Polio (IPV/OPV) 2003-05-05 00:00:00 Completed [facility] Pneumococcal 7 Conjugate, PCV7 (Prevnar7) 2003-05-05 00:00:00 Completed [facility] MMR 2003-05-05 00:00:00 Completed [facility] Polio (IPV/OPV) 2003-05-05 00:00:00 Completed [facility] Pneumococcal 7 Conjugate, PCV7 (Prevnar7) 2003-05-05 00:00:00 Completed [facility] MMR 2003-05-05 00:00:00 Completed [facility] Polio (IPV/OPV) 2003-05-05 00:00:00 Completed [facility] Pneumococcal 7 Conjugate, PCV7 (Prevnar7) 2003-05-05 00:00:00 Completed [facility] MMR 2003-05-05 00:00:00 Completed [facility] Polio (IPV/OPV) 2003-05-05 00:00:00 Completed [facility] Pneumococcal 7 Conjugate, PCV7 (Prevnar7) 2003-05-05 00:00:00 Completed [facility] MMR 2003-05-05 00:00:00 Completed [facility] Polio (IPV/OPV) 2003-05-05 00:00:00 Completed [facility] Pneumococcal 7 Conjugate, PCV7 (Prevnar7) 2003-05-05 00:00:00 Completed [facility] MMR 2003-05-05 00:00:00 Completed [facility] Polio (IPV/OPV) 2003-05-05 00:00:00 Completed [facility] Pneumococcal 7 Conjugate, PCV7 (Prevnar7) 2003-05-05 00:00:00 Completed [facility] MMR 2003-05-05 00:00:00 Completed [facility] Polio (IPV/OPV) 2003-05-05 00:00:00 Completed [facility] Pneumococcal 7 Conjugate, PCV7 (Prevnar7) 2003-05-05 00:00:00 Completed [facility] 2003-05-05 00:00:00 Completed [facility] 2003-05-05 00:00:00 Completed [facility] Polio (IPV/OPV) 2003-05-05 00:00:00 Completed [facility] Pneumococcal 7 Conjugate, PCV7 (Prevnar7) 2003-05-05 00:00:00 Completed [facility] Polio (IPV/OPV) 2003-05-05 00:00:00 Completed [facility] MMR 2003-05-05 00:00:00 Completed [facility] Polio (IPV/OPV) 2003-05-05 00:00:00 Completed [facility] Pneumococcal 7 Conjugate, PCV7 (Prevnar7) 2003-05-05 00:00:00 Completed [facility] MMR 2003-05-05 00:00:00 Completed [facility] Polio (IPV/OPV) 2003-05-05 00:00:00 Completed [facility] Pneumococcal 7 Conjugate, PCV7 (Prevnar7) 2003-05-05 00:00:00 Completed [facility] Pneumococcal 7 Conjugate, PCV7 (Prevnar7) 2003-05-05 00:00:00 Completed [facility] MMR 2003-05-05 00:00:00 Completed [facility] Polio (IPV/OPV) 2003-05-05 00:00:00 Completed [facility] Pneumococcal 7 Conjugate, PCV7 (Prevnar7) 2003-05-05 00:00:00 Completed [facility] MMR 2003-05-05 00:00:00 Completed [facility] Polio (IPV/OPV) 2003-05-05 00:00:00 Completed [facility] Pneumococcal 7 Conjugate, PCV7 (Prevnar7) 2003-05-05 00:00:00 Completed [facility] 2003-05-05 00:00:00 Completed [facility] Polio (IPV/OPV) 2003-05-05 00:00:00 Completed [facility] Pneumococcal 7 Conjugate, PCV7 (Prevnar7) 2003-05-05 00:00:00 Completed [facility] 2003-05-05 00:00:00 Completed [facility] Polio (IPV/OPV) 2003-05-05 00:00:00 Completed [facility] Pneumococcal 7 Conjugate, PCV7 (Prevnar7) 2003-05-05 00:00:00 Completed [facility] 2003-05-05 00:00:00 Completed [facility] Polio (IPV/OPV) 2003-05-05 00:00:00 Completed [facility] Pneumococcal 7 Conjugate, PCV7 (Prevnar7) 2003-05-05 00:00:00 Completed [facility] MMR 2003-05-05 00:00:00 Completed [facility] MMR 2003-05-05 00:00:00 Completed [facility] Polio (IPV/OPV) 2003-05-05 00:00:00 Completed [facility] Pneumococcal 7 Conjugate, PCV7 (Prevnar7) 2003-05-05 00:00:00 Completed [facility] Polio (IPV/OPV) 2003-05-05 00:00:00 Completed [facility] MMR 2003-05-05 00:00:00 Completed [facility] Polio (IPV/OPV) 2003-05-05 00:00:00 Completed [facility] Pneumococcal 7 Conjugate, PCV7 (Prevnar7) 2003-05-05 00:00:00 Completed [facility] MMR 2003-05-05 00:00:00 Completed [facility] Polio (IPV/OPV) 2003-05-05 00:00:00 Completed [facility] Pneumococcal 7 Conjugate, PCV7 (Prevnar7) 2003-05-05 00:00:00 Completed [facility] Pneumococcal 7 Conjugate, PCV7 (Prevnar7) 2003-05-05 00:00:00 Completed [facility] MMR 2003-05-05 00:00:00 Completed [facility] Polio (IPV/OPV) 2003-05-05 00:00:00 Completed [facility] Pneumococcal 7 Conjugate, PCV7 (Prevnar7) 2003-05-05 00:00:00 Completed [facility] MMR 2003-05-05 00:00:00 Completed [facility] Polio (IPV/OPV) 2003-05-05 00:00:00 Completed [facility] Pneumococcal 7 Conjugate, PCV7 (Prevnar7) 2003-05-05 00:00:00 Completed [facility] MMR 2003-05-05 00:00:00 Completed [facility] Polio (IPV/OPV) 2003-05-05 00:00:00 Completed [facility] Pneumococcal 7 Conjugate, PCV7 (Prevnar7) 2003-05-05 00:00:00 Completed [facility] MMR 2003-05-05 00:00:00 Completed [facility] Polio (IPV/OPV) 2003-05-05 00:00:00 Completed [facility] Pneumococcal 7 Conjugate, PCV7 (Prevnar7) 2003-05-05 00:00:00 Completed [facility] MMR 2003-05-05 00:00:00 Completed [facility] Polio (IPV/OPV) 2003-05-05 00:00:00 Completed [facility] Pneumococcal 7 Conjugate, PCV7 (Prevnar7) 2003-05-05 00:00:00 Completed [facility] MMR 2003-05-05 00:00:00 Completed [facility] Polio (IPV/OPV) 2003-05-05 00:00:00 Completed [facility] Pneumococcal 7 Conjugate, PCV7 (Prevnar7) 2003-05-05 00:00:00 Completed [facility] MMR 2003-05-05 00:00:00 Completed [facility] Polio (IPV/OPV) 2003-05-05 00:00:00 Completed [facility] 2003-05-05 00:00:00 Completed [facility] Pneumococcal 7 Conjugate, PCV7 (Prevnar7) 2003-05-05 00:00:00 Completed [facility] 2003-05-05 00:00:00 Completed [facility] Polio (IPV/OPV) 2003-05-05 00:00:00 Completed [facility] Pneumococcal 7 Conjugate, PCV7 (Prevnar7) 2003-05-05 00:00:00 Completed [facility] Polio (IPV/OPV) 2003-05-05 00:00:00 Completed [facility] 2003-05-05 00:00:00 Completed [facility] Polio (IPV/OPV) 2003-05-05 00:00:00 Completed [facility] Pneumococcal 7 Conjugate, PCV7 (Prevnar7) 2003-05-05 00:00:00 Completed [facility] Pneumococcal 7 Conjugate, PCV7 (Prevnar7) 2003-05-05 00:00:00 Completed [facility] 2003-05-05 00:00:00 Completed [facility] Polio (IPV/OPV) 2003-05-05 00:00:00 Completed [facility] Pneumococcal 7 Conjugate, PCV7 (Prevnar7) 2003-05-05 00:00:00 Completed [facility] MMR 2003-05-05 00:00:00 Completed [facility] Polio (IPV/OPV) 2003-05-05 00:00:00 Completed [facility] Pneumococcal 7 Conjugate, PCV7 (Prevnar7) 2003-05-05 00:00:00 Completed [facility] MMR 2003-05-05 00:00:00 Completed [facility] Polio (IPV/OPV) 2003-05-05 00:00:00 Completed [facility] Pneumococcal 7 Conjugate, PCV7 (Prevnar7) 2003-05-05 00:00:00 Completed [facility] 2003-05-05 00:00:00 Completed [facility] Polio (IPV/OPV) 2003-05-05 00:00:00 Completed [facility] Pneumococcal 7 Conjugate, PCV7 (Prevnar7) 2003-05-05 00:00:00 Completed [facility] 2003-05-05 00:00:00 Completed [facility] 2003-05-05 00:00:00 Completed [facility] Polio (IPV/OPV) 2003-05-05 00:00:00 Completed [facility] Polio (IPV/OPV) 2003-05-05 00:00:00 Completed [facility] Pneumococcal 7 Conjugate, PCV7 (Prevnar7) 2003-05-05 00:00:00 Completed [facility] 2003-05-05 00:00:00 Completed [facility] Polio (IPV/OPV) 2003-05-05 00:00:00 Completed [facility] Pneumococcal 7 Conjugate, PCV7 (Prevnar7) 2003-05-05 00:00:00 Completed [facility] Pneumococcal 7 Conjugate, PCV7 (Prevnar7) 2003-05-05 00:00:00 Completed [facility] 2003-05-05 00:00:00 Completed [facility] Polio (IPV/OPV) 2003-05-05 00:00:00 Completed [facility] Pneumococcal 7 Conjugate, PCV7 (Prevnar7) 2003-05-05 00:00:00 Completed [facility] MMR 2003-05-05 00:00:00 Completed [facility] Polio (IPV/OPV) 2003-05-05 00:00:00 Completed [facility] Pneumococcal 7 Conjugate, PCV7 (Prevnar7) 2003-05-05 00:00:00 Completed [facility] 2003-05-05 00:00:00 Completed [facility] Polio (IPV/OPV) 2003-05-05 00:00:00 Completed [facility] Pneumococcal 7 Conjugate, PCV7 (Prevnar7) 2003-05-05 00:00:00 Completed [facility] 2003-05-05 00:00:00 Completed [facility] Polio (IPV/OPV) 2003-05-05 00:00:00 Completed [facility] Pneumococcal 7 Conjugate, PCV7 (Prevnar7) 2003-05-05 00:00:00 Completed [facility] MMR 2003-05-05 00:00:00 Completed [facility] Polio (IPV/OPV) 2003-05-05 00:00:00 Completed [facility] Pneumococcal 7 Conjugate, PCV7 (Prevnar7) 2003-05-05 00:00:00 Completed [facility] MMR 2003-05-05 00:00:00 Completed [facility] MMR 2003-05-05 00:00:00 Completed [facility] Polio (IPV/OPV) 2003-05-05 00:00:00 Completed [facility] Pneumococcal 7 Conjugate, PCV7 (Prevnar7) 2003-05-05 00:00:00 Completed [facility] Polio (IPV/OPV) 2003-05-05 00:00:00 Completed [facility] MMR 2003-05-05 00:00:00 Completed [facility] Polio (IPV/OPV) 2003-05-05 00:00:00 Completed [facility] Pneumococcal 7 Conjugate, PCV7 (Prevnar7) 2003-05-05 00:00:00 Completed [facility] MMR 2003-05-05 00:00:00 Completed [facility] Polio (IPV/OPV) 2003-05-05 00:00:00 Completed [facility] Pneumococcal 7 Conjugate, PCV7 (Prevnar7) 2003-05-05 00:00:00 Completed [facility] Pneumococcal 7 Conjugate, PCV7 (Prevnar7) 2003-05-05 00:00:00 Completed [facility] MMR 2003-05-05 00:00:00 Completed [facility] Polio (IPV/OPV) 2003-05-05 00:00:00 Completed [facility] Pneumococcal 7 Conjugate, PCV7 (Prevnar7) 2003-05-05 00:00:00 Completed [facility] MMR 2003-05-05 00:00:00 Completed [facility] Polio (IPV/OPV) 2003-05-05 00:00:00 Completed [facility] Pneumococcal 7 Conjugate, PCV7 (Prevnar7) 2003-05-05 00:00:00 Completed [facility] MMR 2003-05-05 00:00:00 Completed [facility] Polio (IPV/OPV) 2003-05-05 00:00:00 Completed [facility] Pneumococcal 7 Conjugate, PCV7 (Prevnar7) 2003-05-05 00:00:00 Completed [facility] 2003-05-05 00:00:00 Completed [facility] Polio (IPV/OPV) 2003-05-05 00:00:00 Completed [facility] Pneumococcal 7 Conjugate, PCV7 (Prevnar7) 2003-05-05 00:00:00 Completed [facility] 2003-05-05 00:00:00 Completed [facility] Polio (IPV/OPV) 2003-05-05 00:00:00 Completed [facility] Pneumococcal 7 Conjugate, PCV7 (Prevnar7) 2003-05-05 00:00:00 Completed [facility] 2003-05-05 00:00:00 Completed [facility] Polio (IPV/OPV) 2003-05-05 00:00:00 Completed [facility] Pneumococcal 7 Conjugate, PCV7 (Prevnar7) 2003-05-05 00:00:00 Completed [facility] 2003-05-05 00:00:00 Completed [facility] 2003-05-05 00:00:00 Completed [facility] Polio (IPV/OPV) 2003-05-05 00:00:00 Completed [facility] Pneumococcal 7 Conjugate, PCV7 (Prevnar7) 2003-05-05 00:00:00 Completed [facility] Polio (IPV/OPV) 2003-05-05 00:00:00 Completed [facility] MMR 2003-05-05 00:00:00 Completed [facility] Polio (IPV/OPV) 2003-05-05 00:00:00 Completed [facility] Pneumococcal 7 Conjugate, PCV7 (Prevnar7) 2003-05-05 00:00:00 Completed [facility] Pneumococcal 7 Conjugate, PCV7 (Prevnar7) 2003-05-05 00:00:00 Completed [facility] 2003-05-05 00:00:00 Completed [facility] Polio (IPV/OPV) 2003-05-05 00:00:00 Completed [facility] Pneumococcal 7 Conjugate, PCV7 (Prevnar7) 2003-05-05 00:00:00 Completed [facility] 2003-05-05 00:00:00 Completed [facility] Polio (IPV/OPV) 2003-05-05 00:00:00 Completed [facility] Pneumococcal 7 Conjugate, PCV7 (Prevnar7) 2003-05-05 00:00:00 Completed [facility] 2003-05-05 00:00:00 Completed [facility] Polio (IPV/OPV) 2003-05-05 00:00:00 Completed [facility] Pneumococcal 7 Conjugate, PCV7 (Prevnar7) 2003-05-05 00:00:00 Completed [facility] 2003-05-05 00:00:00 Completed [facility] Polio (IPV/OPV) 2003-05-05 00:00:00 Completed [facility] Pneumococcal 7 Conjugate, PCV7 (Prevnar7) 2003-05-05 00:00:00 Completed [facility] 2003-05-05 00:00:00 Completed [facility] Polio (IPV/OPV) 2003-05-05 00:00:00 Completed [facility] Pneumococcal 7 Conjugate, PCV7 (Prevnar7) 2003-05-05 00:00:00 Completed [facility] 2003-05-05 00:00:00 Completed [facility] Polio (IPV/OPV) 2003-05-05 00:00:00 Completed [facility] Pneumococcal 7 Conjugate, PCV7 (Prevnar7) 2003-05-05 00:00:00 Completed [facility] MMR 2003-05-05 00:00:00 Completed [facility] 2003-05-05 00:00:00 Completed [facility] Polio (IPV/OPV) 2003-05-05 00:00:00 Completed [facility] Pneumococcal 7 Conjugate, PCV7 (Prevnar7) 2003-05-05 00:00:00 Completed [facility] Polio (IPV/OPV) 2003-05-05 00:00:00 Completed [facility] MMR 2003-05-05 00:00:00 Completed [facility] Polio (IPV/OPV) 2003-05-05 00:00:00 Completed [facility] Pneumococcal 7 Conjugate, PCV7 (Prevnar7) 2003-05-05 00:00:00 Completed [facility] Pneumococcal 7 Conjugate, PCV7 (Prevnar7) 2003-05-05 00:00:00 Completed [facility] MMR 2003-05-05 00:00:00 Completed [facility] Polio (IPV/OPV) 2003-05-05 00:00:00 Completed [facility] Pneumococcal 7 Conjugate, PCV7 (Prevnar7) 2003-05-05 00:00:00 Completed [facility] MMR 2003-05-05 00:00:00 Completed [facility] Polio (IPV/OPV) 2003-05-05 00:00:00 Completed [facility] Pneumococcal 7 Conjugate, PCV7 (Prevnar7) 2003-05-05 00:00:00 Completed [facility] MMR 2003-05-05 00:00:00 Completed [facility] Polio (IPV/OPV) 2003-05-05 00:00:00 Completed [facility] Pneumococcal 7 Conjugate, PCV7 (Prevnar7) 2003-05-05 00:00:00 Completed [facility] MMR 2003-05-05 00:00:00 Completed [facility] Polio (IPV/OPV) 2003-05-05 00:00:00 Completed [facility] Pneumococcal 7 Conjugate, PCV7 (Prevnar7) 2003-05-05 00:00:00 Completed [facility] MMR 2003-05-05 00:00:00 Completed [facility] Polio (IPV/OPV) 2003-05-05 00:00:00 Completed [facility] Pneumococcal 7 Conjugate, PCV7 (Prevnar7) 2003-05-05 00:00:00 Completed [facility] MMR 2003-05-05 00:00:00 Completed [facility] Polio (IPV/OPV) 2003-05-05 00:00:00 Completed [facility] Pneumococcal 7 Conjugate, PCV7 (Prevnar7) 2003-05-05 00:00:00 Completed [facility] MMR 2003-05-05 00:00:00 Completed [facility] 2003-05-05 00:00:00 Completed [facility] Polio (IPV/OPV) 2003-05-05 00:00:00 Completed [facility] Pneumococcal 7 Conjugate, PCV7 (Prevnar7) 2003-05-05 00:00:00 Completed [facility] MMR 2003-05-05 00:00:00 Completed [facility] Polio (IPV/OPV) 2003-05-05 00:00:00 Completed [facility] Polio (IPV/OPV) 2003-05-05 00:00:00 Completed [facility] Pneumococcal 7 Conjugate, PCV7 (Prevnar7) 2003-05-05 00:00:00 Completed [facility] Pneumococcal 7 Conjugate, PCV7 (Prevnar7) 2003-05-05 00:00:00 Completed [facility] 2003-05-05 00:00:00 Completed [facility] Polio (IPV/OPV) 2003-05-05 00:00:00 Completed [facility] Pneumococcal 7 Conjugate, PCV7 (Prevnar7) 2003-05-05 00:00:00 Completed [facility] MMR 2003-05-05 00:00:00 Completed [facility] Polio (IPV/OPV) 2003-05-05 00:00:00 Completed [facility] Pneumococcal 7 Conjugate, PCV7 (Prevnar7) 2003-05-05 00:00:00 Completed [facility] MMR 2003-05-05 00:00:00 Completed [facility] Polio (IPV/OPV) 2003-05-05 00:00:00 Completed [facility] Pneumococcal 7 Conjugate, PCV7 (Prevnar7) 2003-05-05 00:00:00 Completed [facility] MMR 2003-05-05 00:00:00 Completed [facility] 2003-05-05 00:00:00 Completed [facility] Polio (IPV/OPV) 2003-05-05 00:00:00 Completed [facility] Pneumococcal 7 Conjugate, PCV7 (Prevnar7) 2003-05-05 00:00:00 Completed [facility] Polio (IPV/OPV) 2003-05-05 00:00:00 Completed [facility] MMR 2003-05-05 00:00:00 Completed [facility] Polio (IPV/OPV) 2003-05-05 00:00:00 Completed [facility] Pneumococcal 7 Conjugate, PCV7 (Prevnar7) 2003-05-05 00:00:00 Completed [facility] MMR 2003-05-05 00:00:00 Completed [facility] Pneumococcal 7 Conjugate, PCV7 (Prevnar7) 2003-05-05 00:00:00 Completed [facility] Polio (IPV/OPV) 2003-05-05 00:00:00 Completed [facility] Pneumococcal 7 Conjugate, PCV7 (Prevnar7) 2003-05-05 00:00:00 Completed [facility] MMR 2003-05-05 00:00:00 Completed [facility] Polio (IPV/OPV) 2003-05-05 00:00:00 Completed [facility] Pneumococcal 7 Conjugate, PCV7 (Prevnar7) 2003-05-05 00:00:00 Completed [facility] MMR 2003-05-05 00:00:00 Completed [facility] Polio (IPV/OPV) 2003-05-05 00:00:00 Completed [facility] Pneumococcal 7 Conjugate, PCV7 (Prevnar7) 2003-05-05 00:00:00 Completed [facility] MMR 2003-05-05 00:00:00 Completed [facility] Polio (IPV/OPV) 2003-05-05 00:00:00 Completed [facility] Pneumococcal 7 Conjugate, PCV7 (Prevnar7) 2003-05-05 00:00:00 Completed [facility] MMR 2003-05-05 00:00:00 Completed [facility] Polio (IPV/OPV) 2003-05-05 00:00:00 Completed [facility] Pneumococcal 7 Conjugate, PCV7 (Prevnar7) 2003-05-05 00:00:00 Completed [facility] MMR 2003-05-05 00:00:00 Completed [facility] Polio (IPV/OPV) 2003-05-05 00:00:00 Completed [facility] Pneumococcal 7 Conjugate, PCV7 (Prevnar7) 2003-05-05 00:00:00 Completed [facility] MMR 2003-05-05 00:00:00 Completed [facility] Polio (IPV/OPV) 2003-05-05 00:00:00 Completed [facility] Pneumococcal 7 Conjugate, PCV7 (Prevnar7) 2003-05-05 00:00:00 Completed [facility] MMR 2003-05-05 00:00:00 Completed [facility] Polio (IPV/OPV) 2003-05-05 00:00:00 Completed [facility] Pneumococcal 7 Conjugate, PCV7 (Prevnar7) 2003-05-05 00:00:00 Completed [facility] HIB 4 Dose Schedule 2002 00:00:00 Completed [facility] Hep B, Adol or Pedi Dosage 2002 00:00:00 Completed [facility] Hep B, Adol or Pedi Dosage 2002 00:00:00 Completed [facility] DTAP 2002 00:00:00 Completed [facility] HIB 4 Dose Schedule 2002 00:00:00 Completed [facility] Hep B, Adol or Pedi Dosage 2002 00:00:00 Completed [facility] DTAP 2002 00:00:00 Completed [facility] HIB 4 Dose Schedule 2002 00:00:00 Completed [facility] Hep B, Adol or Pedi Dosage 2002 00:00:00 Completed [facility] DTAP 2002 00:00:00 Completed [facility] HIB 4 Dose Schedule 2002 00:00:00 Completed [facility] Hep B, Adol or Pedi Dosage 2002 00:00:00 Completed [facility] DTAP 2002 00:00:00 Completed [facility] HIB 4 Dose Schedule 2002 00:00:00 Completed [facility] Hep B, Adol or Pedi Dosage 2002 00:00:00 Completed [facility] DTAP 2002 00:00:00 Completed [facility] HIB 4 Dose Schedule 2002 00:00:00 Completed [facility] Hep B, Adol or Pedi Dosage 2002 00:00:00 Completed [facility] DTAP 2002 00:00:00 Completed [facility] HIB 4 Dose Schedule 2002 00:00:00 Completed [facility] Hep B, Adol or Pedi Dosage 2002 00:00:00 Completed [facility] DTAP 2002 00:00:00 Completed [facility] HIB 4 Dose Schedule 2002 00:00:00 Completed [facility] Hep B, Adol or Pedi Dosage 2002 00:00:00 Completed [facility] DTAP 2002 00:00:00 Completed [facility] DTAP 2002 00:00:00 Completed [facility] HIB 4 Dose Schedule 2002 00:00:00 Completed [facility] Hep B, Adol or Pedi Dosage 2002 00:00:00 Completed [facility] HIB 4 Dose Schedule 2002 00:00:00 Completed [facility] DTAP 2002 00:00:00 Completed [facility] HIB 4 Dose Schedule 2002 00:00:00 Completed [facility] Hep B, Adol or Pedi Dosage 2002 00:00:00 Completed [facility] Hep B, Adol or Pedi Dosage 2002 00:00:00 Completed [facility] DTAP 2002 00:00:00 Completed [facility] HIB 4 Dose Schedule 2002 00:00:00 Completed [facility] Hep B, Adol or Pedi Dosage 2002 00:00:00 Completed [facility] DTAP 2002 00:00:00 Completed [facility] HIB 4 Dose Schedule 2002 00:00:00 Completed [facility] Hep B, Adol or Pedi Dosage 2002 00:00:00 Completed [facility] DTAP 2002 00:00:00 Completed [facility] HIB 4 Dose Schedule 2002 00:00:00 Completed [facility] Hep B, Adol or Pedi Dosage 2002 00:00:00 Completed [facility] DTAP 2002 00:00:00 Completed [facility] HIB 4 Dose Schedule 2002 00:00:00 Completed [facility] Hep B, Adol or Pedi Dosage 2002 00:00:00 Completed [facility] DTAP 2002 00:00:00 Completed [facility] HIB 4 Dose Schedule 2002 00:00:00 Completed [facility] Hep B, Adol or Pedi Dosage 2002 00:00:00 Completed [facility] DTAP 2002 00:00:00 Completed [facility] HIB 4 Dose Schedule 2002 00:00:00 Completed [facility] Hep B, Adol or Pedi Dosage 2002 00:00:00 Completed [facility] DTAP 2002 00:00:00 Completed [facility] HIB 4 Dose Schedule 2002 00:00:00 Completed [facility] Hep B, Adol or Pedi Dosage 2002 00:00:00 Completed [facility] DTAP 2002 00:00:00 Completed [facility] HIB 4 Dose Schedule 2002 00:00:00 Completed [facility] Hep B, Adol or Pedi Dosage 2002 00:00:00 Completed [facility] DTAP 2002 00:00:00 Completed [facility] DTAP 2002 00:00:00 Completed [facility] HIB 4 Dose Schedule 2002 00:00:00 Completed [facility] Hep B, Adol or Pedi Dosage 2002 00:00:00 Completed [facility] DTAP 2002 00:00:00 Completed [facility] HIB 4 Dose Schedule 2002 00:00:00 Completed [facility] HIB 4 Dose Schedule 2002 00:00:00 Completed [facility] Hep B, Adol or Pedi Dosage 2002 00:00:00 Completed [facility] DTAP 2002 00:00:00 Completed [facility] HIB 4 Dose Schedule 2002 00:00:00 Completed [facility] Hep B, Adol or Pedi Dosage 2002 00:00:00 Completed [facility] Hep B, Adol or Pedi Dosage 2002 00:00:00 Completed [facility] DTAP 2002 00:00:00 Completed [facility] HIB 4 Dose Schedule 2002 00:00:00 Completed [facility] Hep B, Adol or Pedi Dosage 2002 00:00:00 Completed [facility] DTAP 2002 00:00:00 Completed [facility] HIB 4 Dose Schedule 2002 00:00:00 Completed [facility] Hep B, Adol or Pedi Dosage 2002 00:00:00 Completed [facility] DTAP 2002 00:00:00 Completed [facility] HIB 4 Dose Schedule 2002 00:00:00 Completed [facility] Hep B, Adol or Pedi Dosage 2002 00:00:00 Completed [facility] DTAP 2002 00:00:00 Completed [facility] HIB 4 Dose Schedule 2002 00:00:00 Completed [facility] Hep B, Adol or Pedi Dosage 2002 00:00:00 Completed [facility] DTAP 2002 00:00:00 Completed [facility] HIB 4 Dose Schedule 2002 00:00:00 Completed [facility] Hep B, Adol or Pedi Dosage 2002 00:00:00 Completed [facility] DTAP 2002 00:00:00 Completed [facility] HIB 4 Dose Schedule 2002 00:00:00 Completed [facility] Hep B, Adol or Pedi Dosage 2002 00:00:00 Completed [facility] DTAP 2002 00:00:00 Completed [facility] DTAP 2002 00:00:00 Completed [facility] HIB 4 Dose Schedule 2002 00:00:00 Completed [facility] Hep B, Adol or Pedi Dosage 2002 00:00:00 Completed [facility] HIB 4 Dose Schedule 2002 00:00:00 Completed [facility] DTAP 2002 00:00:00 Completed [facility] HIB 4 Dose Schedule 2002 00:00:00 Completed [facility] Hep B, Adol or Pedi Dosage 2002 00:00:00 Completed [facility] Hep B, Adol or Pedi Dosage 2002 00:00:00 Completed [facility] DTAP 2002 00:00:00 Completed [facility] HIB 4 Dose Schedule 2002 00:00:00 Completed [facility] Hep B, Adol or Pedi Dosage 2002 00:00:00 Completed [facility] DTAP 2002 00:00:00 Completed [facility] HIB 4 Dose Schedule 2002 00:00:00 Completed [facility] Hep B, Adol or Pedi Dosage 2002 00:00:00 Completed [facility] DTAP 2002 00:00:00 Completed [facility] HIB 4 Dose Schedule 2002 00:00:00 Completed [facility] Hep B, Adol or Pedi Dosage 2002 00:00:00 Completed [facility] DTAP 2002 00:00:00 Completed [facility] HIB 4 Dose Schedule 2002 00:00:00 Completed [facility] Hep B, Adol or Pedi Dosage 2002 00:00:00 Completed [facility] DTAP 2002 00:00:00 Completed [facility] HIB 4 Dose Schedule 2002 00:00:00 Completed [facility] Hep B, Adol or Pedi Dosage 2002 00:00:00 Completed [facility] DTAP 2002 00:00:00 Completed [facility] HIB 4 Dose Schedule 2002 00:00:00 Completed [facility] Hep B, Adol or Pedi Dosage 2002 00:00:00 Completed [facility] DTAP 2002 00:00:00 Completed [facility] HIB 4 Dose Schedule 2002 00:00:00 Completed [facility] Hep B, Adol or Pedi Dosage 2002 00:00:00 Completed [facility] DTAP 2002 00:00:00 Completed [facility] DTAP 2002 00:00:00 Completed [facility] HIB 4 Dose Schedule 2002 00:00:00 Completed [facility] Hep B, Adol or Pedi Dosage 2002 00:00:00 Completed [facility] HIB 4 Dose Schedule 2002 00:00:00 Completed [facility] DTAP 2002 00:00:00 Completed [facility] HIB 4 Dose Schedule 2002 00:00:00 Completed [facility] Hep B, Adol or Pedi Dosage 2002 00:00:00 Completed [facility] DTAP 2002 00:00:00 Completed [facility] Hep B, Adol or Pedi Dosage 2002 00:00:00 Completed [facility] HIB 4 Dose Schedule 2002 00:00:00 Completed [facility] Hep B, Adol or Pedi Dosage 2002 00:00:00 Completed [facility] DTAP 2002 00:00:00 Completed [facility] HIB 4 Dose Schedule 2002 00:00:00 Completed [facility] Hep B, Adol or Pedi Dosage 2002 00:00:00 Completed [facility] DTAP 2002 00:00:00 Completed [facility] HIB 4 Dose Schedule 2002 00:00:00 Completed [facility] Hep B, Adol or Pedi Dosage 2002 00:00:00 Completed [facility] DTAP 2002 00:00:00 Completed [facility] HIB 4 Dose Schedule 2002 00:00:00 Completed [facility] Hep B, Adol or Pedi Dosage 2002 00:00:00 Completed [facility] DTAP 2002 00:00:00 Completed [facility] HIB 4 Dose Schedule 2002 00:00:00 Completed [facility] DTAP 2002 00:00:00 Completed [facility] Hep B, Adol or Pedi Dosage 2002 00:00:00 Completed [facility] HIB 4 Dose Schedule 2002 00:00:00 Completed [facility] DTAP 2002 00:00:00 Completed [facility] HIB 4 Dose Schedule 2002 00:00:00 Completed [facility] Hep B, Adol or Pedi Dosage 2002 00:00:00 Completed [facility] DTAP 2002 00:00:00 Completed [facility] Hep B, Adol or Pedi Dosage 2002 00:00:00 Completed [facility] HIB 4 Dose Schedule 2002 00:00:00 Completed [facility] Hep B, Adol or Pedi Dosage 2002 00:00:00 Completed [facility] DTAP 2002 00:00:00 Completed [facility] HIB 4 Dose Schedule 2002 00:00:00 Completed [facility] Hep B, Adol or Pedi Dosage 2002 00:00:00 Completed [facility] DTAP 2002 00:00:00 Completed [facility] HIB 4 Dose Schedule 2002 00:00:00 Completed [facility] Hep B, Adol or Pedi Dosage 2002 00:00:00 Completed [facility] DTAP 2002 00:00:00 Completed [facility] HIB 4 Dose Schedule 2002 00:00:00 Completed [facility] Hep B, Adol or Pedi Dosage 2002 00:00:00 Completed [facility] DTAP 2002 00:00:00 Completed [facility] HIB 4 Dose Schedule 2002 00:00:00 Completed [facility] Hep B, Adol or Pedi Dosage 2002 00:00:00 Completed [facility] DTAP 2002 00:00:00 Completed [facility] HIB 4 Dose Schedule 2002 00:00:00 Completed [facility] Hep B, Adol or Pedi Dosage 2002 00:00:00 Completed [facility] DTAP 2002 00:00:00 Completed [facility] DTAP 2002 00:00:00 Completed [facility] HIB 4 Dose Schedule 2002 00:00:00 Completed [facility] Hep B, Adol or Pedi Dosage 2002 00:00:00 Completed [facility] HIB 4 Dose Schedule 2002 00:00:00 Completed [facility] DTAP 2002 00:00:00 Completed [facility] HIB 4 Dose Schedule 2002 00:00:00 Completed [facility] Hep B, Adol or Pedi Dosage 2002 00:00:00 Completed [facility] Hep B, Adol or Pedi Dosage 2002 00:00:00 Completed [facility] DTAP 2002 00:00:00 Completed [facility] HIB 4 Dose Schedule 2002 00:00:00 Completed [facility] Hep B, Adol or Pedi Dosage 2002 00:00:00 Completed [facility] DTAP 2002 00:00:00 Completed [facility] HIB 4 Dose Schedule 2002 00:00:00 Completed [facility] Hep B, Adol or Pedi Dosage 2002 00:00:00 Completed [facility] DTAP 2002 00:00:00 Completed [facility] HIB 4 Dose Schedule 2002 00:00:00 Completed [facility] Hep B, Adol or Pedi Dosage 2002 00:00:00 Completed [facility] DTAP 2002 00:00:00 Completed [facility] HIB 4 Dose Schedule 2002 00:00:00 Completed [facility] Hep B, Adol or Pedi Dosage 2002 00:00:00 Completed [facility] DTAP 2002 00:00:00 Completed [facility] HIB 4 Dose Schedule 2002 00:00:00 Completed [facility] Hep B, Adol or Pedi Dosage 2002 00:00:00 Completed [facility] DTAP 2002 00:00:00 Completed [facility] HIB 4 Dose Schedule 2002 00:00:00 Completed [facility] Hep B, Adol or Pedi Dosage 2002 00:00:00 Completed [facility] DTAP 2002 00:00:00 Completed [facility] DTAP 2002 00:00:00 Completed [facility] HIB 4 Dose Schedule 2002 00:00:00 Completed [facility] Hep B, Adol or Pedi Dosage 2002 00:00:00 Completed [facility] HIB 4 Dose Schedule 2002 00:00:00 Completed [facility] DTAP 2002 00:00:00 Completed [facility] HIB 4 Dose Schedule 2002 00:00:00 Completed [facility] Hep B, Adol or Pedi Dosage 2002 00:00:00 Completed [facility] DTAP 2002 00:00:00 Completed [facility] HIB 4 Dose Schedule 2002 00:00:00 Completed [facility] Hep B, Adol or Pedi Dosage 2002 00:00:00 Completed [facility] Hep B, Adol or Pedi Dosage 2002 00:00:00 Completed [facility] DTAP 2002 00:00:00 Completed [facility] HIB 4 Dose Schedule 2002 00:00:00 Completed [facility] Hep B, Adol or Pedi Dosage 2002 00:00:00 Completed [facility] DTAP 2002 00:00:00 Completed [facility] HIB 4 Dose Schedule 2002 00:00:00 Completed [facility] Hep B, Adol or Pedi Dosage 2002 00:00:00 Completed [facility] DTAP 2002 00:00:00 Completed [facility] HIB 4 Dose Schedule 2002 00:00:00 Completed [facility] Hep B, Adol or Pedi Dosage 2002 00:00:00 Completed [facility] DTAP 2002 00:00:00 Completed [facility] HIB 4 Dose Schedule 2002 00:00:00 Completed [facility] Hep B, Adol or Pedi Dosage 2002 00:00:00 Completed [facility] DTAP 2002 00:00:00 Completed [facility] HIB 4 Dose Schedule 2002 00:00:00 Completed [facility] Hep B, Adol or Pedi Dosage 2002 00:00:00 Completed [facility] DTAP 2002 00:00:00 Completed [facility] DTAP 2002 00:00:00 Completed [facility] HIB 4 Dose Schedule 2002 00:00:00 Completed [facility] Hep B, Adol or Pedi Dosage 2002 00:00:00 Completed [facility] HIB 4 Dose Schedule 2002 00:00:00 Completed [facility] DTAP 2002 00:00:00 Completed [facility] HIB 4 Dose Schedule 2002 00:00:00 Completed [facility] Hep B, Adol or Pedi Dosage 2002 00:00:00 Completed [facility] DTAP 2002 00:00:00 Completed [facility] HIB 4 Dose Schedule 2002 00:00:00 Completed [facility] Hep B, Adol or Pedi Dosage 2002 00:00:00 Completed [facility] Hep B, Adol or Pedi Dosage 2002 00:00:00 Completed [facility] DTAP 2002 00:00:00 Completed [facility] HIB 4 Dose Schedule 2002 00:00:00 Completed [facility] Hep B, Adol or Pedi Dosage 2002 00:00:00 Completed [facility] DTAP 2002 00:00:00 Completed [facility] HIB 4 Dose Schedule 2002 00:00:00 Completed [facility] Hep B, Adol or Pedi Dosage 2002 00:00:00 Completed [facility] DTAP 2002 00:00:00 Completed [facility] HIB 4 Dose Schedule 2002 00:00:00 Completed [facility] Hep B, Adol or Pedi Dosage 2002 00:00:00 Completed [facility] DTAP 2002 00:00:00 Completed [facility] HIB 4 Dose Schedule 2002 00:00:00 Completed [facility] Hep B, Adol or Pedi Dosage 2002 00:00:00 Completed [facility] DTAP 2002 00:00:00 Completed [facility] HIB 4 Dose Schedule 2002 00:00:00 Completed [facility] Hep B, Adol or Pedi Dosage 2002 00:00:00 Completed [facility] DTAP 2002 00:00:00 Completed [facility] HIB 4 Dose Schedule 2002 00:00:00 Completed [facility] Hep B, Adol or Pedi Dosage 2002 00:00:00 Completed [facility] DTAP 2002 00:00:00 Completed [facility] DTAP 2002 00:00:00 Completed [facility] HIB 4 Dose Schedule 2002 00:00:00 Completed [facility] Hep B, Adol or Pedi Dosage 2002 00:00:00 Completed [facility] HIB 4 Dose Schedule 2002 00:00:00 Completed [facility] DTAP 2002 00:00:00 Completed [facility] HIB 4 Dose Schedule 2002 00:00:00 Completed [facility] Hep B, Adol or Pedi Dosage 2002 00:00:00 Completed [facility] Hep B, Adol or Pedi Dosage 2002 00:00:00 Completed [facility] DTAP 2002 00:00:00 Completed [facility] HIB 4 Dose Schedule 2002 00:00:00 Completed [facility] Hep B, Adol or Pedi Dosage 2002 00:00:00 Completed [facility] DTAP 2002 00:00:00 Completed [facility] HIB 4 Dose Schedule 2002 00:00:00 Completed [facility] Hep B, Adol or Pedi Dosage 2002 00:00:00 Completed [facility] DTAP 2002 00:00:00 Completed [facility] DTAP 2002 00:00:00 Completed [facility] HIB 4 Dose Schedule 2002 00:00:00 Completed [facility] Hep B, Adol or Pedi Dosage 2002 00:00:00 Completed [facility] HIB 4 Dose Schedule 2002 00:00:00 Completed [facility] DTAP 2002 00:00:00 Completed [facility] HIB 4 Dose Schedule 2002 00:00:00 Completed [facility] Hep B, Adol or Pedi Dosage 2002 00:00:00 Completed [facility] DTAP 2002 00:00:00 Completed [facility] HIB 4 Dose Schedule 2002 00:00:00 Completed [facility] Hep B, Adol or Pedi Dosage 2002 00:00:00 Completed [facility] Hep B, Adol or Pedi Dosage 2002 00:00:00 Completed [facility] DTAP 2002 00:00:00 Completed [facility] HIB 4 Dose Schedule 2002 00:00:00 Completed [facility] Hep B, Adol or Pedi Dosage 2002 00:00:00 Completed [facility] DTAP 2002 00:00:00 Completed [facility] HIB 4 Dose Schedule 2002 00:00:00 Completed [facility] Hep B, Adol or Pedi Dosage 2002 00:00:00 Completed [facility] DTAP 2002 00:00:00 Completed [facility] HIB 4 Dose Schedule 2002 00:00:00 Completed [facility] Hep B, Adol or Pedi Dosage 2002 00:00:00 Completed [facility] DTAP 2002 00:00:00 Completed [facility] HIB 4 Dose Schedule 2002 00:00:00 Completed [facility] Hep B, Adol or Pedi Dosage 2002 00:00:00 Completed [facility] DTAP 2002 00:00:00 Completed [facility] HIB 4 Dose Schedule 2002 00:00:00 Completed [facility] Hep B, Adol or Pedi Dosage 2002 00:00:00 Completed [facility] DTAP 2002 00:00:00 Completed [facility] HIB 4 Dose Schedule 2002 00:00:00 Completed [facility] Hep B, Adol or Pedi Dosage 2002 00:00:00 Completed [facility] DTAP 2002 00:00:00 Completed [facility] HIB 4 Dose Schedule 2002 00:00:00 Completed [facility] Hep B, Adol or Pedi Dosage 2002 00:00:00 Completed [facility] DTAP 2002 00:00:00 Completed [facility] HIB 4 Dose Schedule 2002 00:00:00 Completed [facility] Hep B, Adol or Pedi Dosage 2002 00:00:00 Completed [facility] DTAP 2002 00:00:00 Completed [facility] DTAP 2002 00:00:00 Completed [facility] HIB 4 Dose Schedule 2002 00:00:00 Completed [facility] Hep B, Adol or Pedi Dosage 2002 00:00:00 Completed [facility] DTAP 2002 00:00:00 Completed [facility] HIB 4 Dose Schedule 2002 00:00:00 Completed [facility] HIB 4 Dose Schedule 2002 00:00:00 Completed [facility] Hep B, Adol or Pedi Dosage 2002 00:00:00 Completed [facility] DTAP 2002 00:00:00 Completed [facility] HIB 4 Dose Schedule 2002 00:00:00 Completed [facility] Polio (IPV/OPV) 2002 00:00:00 Completed [facility] DTAP 2002 00:00:00 Completed [facility] HIB 4 Dose Schedule 2002 00:00:00 Completed [facility] Polio (IPV/OPV) 2002 00:00:00 Completed [facility] Polio (IPV/OPV) 2002 00:00:00 Completed [facility] DTAP 2002 00:00:00 Completed [facility] HIB 4 Dose Schedule 2002 00:00:00 Completed [facility] Polio (IPV/OPV) 2002 00:00:00 Completed [facility] DTAP 2002 00:00:00 Completed [facility] HIB 4 Dose Schedule 2002 00:00:00 Completed [facility] Polio (IPV/OPV) 2002 00:00:00 Completed [facility] DTAP 2002 00:00:00 Completed [facility] HIB 4 Dose Schedule 2002 00:00:00 Completed [facility] Polio (IPV/OPV) 2002 00:00:00 Completed [facility] DTAP 2002 00:00:00 Completed [facility] HIB 4 Dose Schedule 2002 00:00:00 Completed [facility] Polio (IPV/OPV) 2002 00:00:00 Completed [facility] DTAP 2002 00:00:00 Completed [facility] HIB 4 Dose Schedule 2002 00:00:00 Completed [facility] Polio (IPV/OPV) 2002 00:00:00 Completed [facility] DTAP 2002 00:00:00 Completed [facility] HIB 4 Dose Schedule 2002 00:00:00 Completed [facility] DTAP 2002 00:00:00 Completed [facility] Polio (IPV/OPV) 2002 00:00:00 Completed [facility] DTAP 2002 00:00:00 Completed [facility] HIB 4 Dose Schedule 2002 00:00:00 Completed [facility] HIB 4 Dose Schedule 2002 00:00:00 Completed [facility] Polio (IPV/OPV) 2002 00:00:00 Completed [facility] DTAP 2002 00:00:00 Completed [facility] HIB 4 Dose Schedule 2002 00:00:00 Completed [facility] Polio (IPV/OPV) 2002 00:00:00 Completed [facility] DTAP 2002 00:00:00 Completed [facility] HIB 4 Dose Schedule 2002 00:00:00 Completed [facility] Polio (IPV/OPV) 2002 00:00:00 Completed [facility] DTAP 2002 00:00:00 Completed [facility] HIB 4 Dose Schedule 2002 00:00:00 Completed [facility] Polio (IPV/OPV) 2002 00:00:00 Completed [facility] Polio (IPV/OPV) 2002 00:00:00 Completed [facility] DTAP 2002 00:00:00 Completed [facility] HIB 4 Dose Schedule 2002 00:00:00 Completed [facility] Polio (IPV/OPV) 2002 00:00:00 Completed [facility] DTAP 2002 00:00:00 Completed [facility] HIB 4 Dose Schedule 2002 00:00:00 Completed [facility] Polio (IPV/OPV) 2002 00:00:00 Completed [facility] DTAP 2002 00:00:00 Completed [facility] HIB 4 Dose Schedule 2002 00:00:00 Completed [facility] Polio (IPV/OPV) 2002 00:00:00 Completed [facility] DTAP 2002 00:00:00 Completed [facility] HIB 4 Dose Schedule 2002 00:00:00 Completed [facility] Polio (IPV/OPV) 2002 00:00:00 Completed [facility] DTAP 2002 00:00:00 Completed [facility] HIB 4 Dose Schedule 2002 00:00:00 Completed [facility] Polio (IPV/OPV) 2002 00:00:00 Completed [facility] DTAP 2002 00:00:00 Completed [facility] HIB 4 Dose Schedule 2002 00:00:00 Completed [facility] Polio (IPV/OPV) 2002 00:00:00 Completed [facility] DTAP 2002 00:00:00 Completed [facility] DTAP 2002 00:00:00 Completed [facility] HIB 4 Dose Schedule 2002 00:00:00 Completed [facility] Polio (IPV/OPV) 2002 00:00:00 Completed [facility] HIB 4 Dose Schedule 2002 00:00:00 Completed [facility] DTAP 2002 00:00:00 Completed [facility] HIB 4 Dose Schedule 2002 00:00:00 Completed [facility] Polio (IPV/OPV) 2002 00:00:00 Completed [facility] DTAP 2002 00:00:00 Completed [facility] HIB 4 Dose Schedule 2002 00:00:00 Completed [facility] Polio (IPV/OPV) 2002 00:00:00 Completed [facility] DTAP 2002 00:00:00 Completed [facility] HIB 4 Dose Schedule 2002 00:00:00 Completed [facility] Polio (IPV/OPV) 2002 00:00:00 Completed [facility] Polio (IPV/OPV) 2002 00:00:00 Completed [facility] DTAP 2002 00:00:00 Completed [facility] HIB 4 Dose Schedule 2002 00:00:00 Completed [facility] Polio (IPV/OPV) 2002 00:00:00 Completed [facility] DTAP 2002 00:00:00 Completed [facility] HIB 4 Dose Schedule 2002 00:00:00 Completed [facility] Polio (IPV/OPV) 2002 00:00:00 Completed [facility] DTAP 2002 00:00:00 Completed [facility] HIB 4 Dose Schedule 2002 00:00:00 Completed [facility] Polio (IPV/OPV) 2002 00:00:00 Completed [facility] DTAP 2002 00:00:00 Completed [facility] HIB 4 Dose Schedule 2002 00:00:00 Completed [facility] Polio (IPV/OPV) 2002 00:00:00 Completed [facility] DTAP 2002 00:00:00 Completed [facility] HIB 4 Dose Schedule 2002 00:00:00 Completed [facility] DTAP 2002 00:00:00 Completed [facility] Polio (IPV/OPV) 2002 00:00:00 Completed [facility] DTAP 2002 00:00:00 Completed [facility] HIB 4 Dose Schedule 2002 00:00:00 Completed [facility] HIB 4 Dose Schedule 2002 00:00:00 Completed [facility] Polio (IPV/OPV) 2002 00:00:00 Completed [facility] DTAP 2002 00:00:00 Completed [facility] HIB 4 Dose Schedule 2002 00:00:00 Completed [facility] Polio (IPV/OPV) 2002 00:00:00 Completed [facility] DTAP 2002 00:00:00 Completed [facility] HIB 4 Dose Schedule 2002 00:00:00 Completed [facility] Polio (IPV/OPV) 2002 00:00:00 Completed [facility] Polio (IPV/OPV) 2002 00:00:00 Completed [facility] DTAP 2002 00:00:00 Completed [facility] HIB 4 Dose Schedule 2002 00:00:00 Completed [facility] Polio (IPV/OPV) 2002 00:00:00 Completed [facility] DTAP 2002 00:00:00 Completed [facility] HIB 4 Dose Schedule 2002 00:00:00 Completed [facility] Polio (IPV/OPV) 2002 00:00:00 Completed [facility] DTAP 2002 00:00:00 Completed [facility] HIB 4 Dose Schedule 2002 00:00:00 Completed [facility] Polio (IPV/OPV) 2002 00:00:00 Completed [facility] DTAP 2002 00:00:00 Completed [facility] HIB 4 Dose Schedule 2002 00:00:00 Completed [facility] Polio (IPV/OPV) 2002 00:00:00 Completed [facility] DTAP 2002 00:00:00 Completed [facility] HIB 4 Dose Schedule 2002 00:00:00 Completed [facility] Polio (IPV/OPV) 2002 00:00:00 Completed [facility] DTAP 2002 00:00:00 Completed [facility] HIB 4 Dose Schedule 2002 00:00:00 Completed [facility] DTAP 2002 00:00:00 Completed [facility] Polio (IPV/OPV) 2002 00:00:00 Completed [facility] DTAP 2002 00:00:00 Completed [facility] HIB 4 Dose Schedule 2002 00:00:00 Completed [facility] HIB 4 Dose Schedule 2002 00:00:00 Completed [facility] Polio (IPV/OPV) 2002 00:00:00 Completed [facility] DTAP 2002 00:00:00 Completed [facility] HIB 4 Dose Schedule 2002 00:00:00 Completed [facility] Polio (IPV/OPV) 2002 00:00:00 Completed [facility] DTAP 2002 00:00:00 Completed [facility] HIB 4 Dose Schedule 2002 00:00:00 Completed [facility] Polio (IPV/OPV) 2002 00:00:00 Completed [facility] DTAP 2002 00:00:00 Completed [facility] HIB 4 Dose Schedule 2002 00:00:00 Completed [facility] Polio (IPV/OPV) 2002 00:00:00 Completed [facility] Polio (IPV/OPV) 2002 00:00:00 Completed [facility] DTAP 2002 00:00:00 Completed [facility] HIB 4 Dose Schedule 2002 00:00:00 Completed [facility] Polio (IPV/OPV) 2002 00:00:00 Completed [facility] DTAP 2002 00:00:00 Completed [facility] HIB 4 Dose Schedule 2002 00:00:00 Completed [facility] Polio (IPV/OPV) 2002 00:00:00 Completed [facility] DTAP 2002 00:00:00 Completed [facility] DTAP 2002 00:00:00 Completed [facility] HIB 4 Dose Schedule 2002 00:00:00 Completed [facility] Polio (IPV/OPV) 2002 00:00:00 Completed [facility] HIB 4 Dose Schedule 2002 00:00:00 Completed [facility] DTAP 2002 00:00:00 Completed [facility] HIB 4 Dose Schedule 2002 00:00:00 Completed [facility] Polio (IPV/OPV) 2002 00:00:00 Completed [facility] DTAP 2002 00:00:00 Completed [facility] HIB 4 Dose Schedule 2002 00:00:00 Completed [facility] Polio (IPV/OPV) 2002 00:00:00 Completed [facility] DTAP 2002 00:00:00 Completed [facility] HIB 4 Dose Schedule 2002 00:00:00 Completed [facility] Polio (IPV/OPV) 2002 00:00:00 Completed [facility] Polio (IPV/OPV) 2002 00:00:00 Completed [facility] DTAP 2002 00:00:00 Completed [facility] HIB 4 Dose Schedule 2002 00:00:00 Completed [facility] Polio (IPV/OPV) 2002 00:00:00 Completed [facility] DTAP 2002 00:00:00 Completed [facility] HIB 4 Dose Schedule 2002 00:00:00 Completed [facility] Polio (IPV/OPV) 2002 00:00:00 Completed [facility] DTAP 2002 00:00:00 Completed [facility] HIB 4 Dose Schedule 2002 00:00:00 Completed [facility] Polio (IPV/OPV) 2002 00:00:00 Completed [facility] DTAP 2002 00:00:00 Completed [facility] HIB 4 Dose Schedule 2002 00:00:00 Completed [facility] DTAP 2002 00:00:00 Completed [facility] Polio (IPV/OPV) 2002 00:00:00 Completed [facility] DTAP 2002 00:00:00 Completed [facility] HIB 4 Dose Schedule 2002 00:00:00 Completed [facility] HIB 4 Dose Schedule 2002 00:00:00 Completed [facility] Polio (IPV/OPV) 2002 00:00:00 Completed [facility] DTAP 2002 00:00:00 Completed [facility] HIB 4 Dose Schedule 2002 00:00:00 Completed [facility] Polio (IPV/OPV) 2002 00:00:00 Completed [facility] DTAP 2002 00:00:00 Completed [facility] HIB 4 Dose Schedule 2002 00:00:00 Completed [facility] Polio (IPV/OPV) 2002 00:00:00 Completed [facility] DTAP 2002 00:00:00 Completed [facility] Polio (IPV/OPV) 2002 00:00:00 Completed [facility] HIB 4 Dose Schedule 2002 00:00:00 Completed [facility] Polio (IPV/OPV) 2002 00:00:00 Completed [facility] DTAP 2002 00:00:00 Completed [facility] HIB 4 Dose Schedule 2002 00:00:00 Completed [facility] Polio (IPV/OPV) 2002 00:00:00 Completed [facility] DTAP 2002 00:00:00 Completed [facility] HIB 4 Dose Schedule 2002 00:00:00 Completed [facility] Polio (IPV/OPV) 2002 00:00:00 Completed [facility] DTAP 2002 00:00:00 Completed [facility] HIB 4 Dose Schedule 2002 00:00:00 Completed [facility] Polio (IPV/OPV) 2002 00:00:00 Completed [facility] DTAP 2002 00:00:00 Completed [facility] HIB 4 Dose Schedule 2002 00:00:00 Completed [facility] Polio (IPV/OPV) 2002 00:00:00 Completed [facility] DTAP 2002 00:00:00 Completed [facility] DTAP 2002 00:00:00 Completed [facility] HIB 4 Dose Schedule 2002 00:00:00 Completed [facility] Polio (IPV/OPV) 2002 00:00:00 Completed [facility] HIB 4 Dose Schedule 2002 00:00:00 Completed [facility] DTAP 2002 00:00:00 Completed [facility] HIB 4 Dose Schedule 2002 00:00:00 Completed [facility] Polio (IPV/OPV) 2002 00:00:00 Completed [facility] DTAP 2002 00:00:00 Completed [facility] HIB 4 Dose Schedule 2002 00:00:00 Completed [facility] Polio (IPV/OPV) 2002 00:00:00 Completed [facility] DTAP 2002 00:00:00 Completed [facility] HIB 4 Dose Schedule 2002 00:00:00 Completed [facility] Polio (IPV/OPV) 2002 00:00:00 Completed [facility] Polio (IPV/OPV) 2002 00:00:00 Completed [facility] DTAP 2002 00:00:00 Completed [facility] HIB 4 Dose Schedule 2002 00:00:00 Completed [facility] Polio (IPV/OPV) 2002 00:00:00 Completed [facility] DTAP 2002 00:00:00 Completed [facility] HIB 4 Dose Schedule 2002 00:00:00 Completed [facility] Polio (IPV/OPV) 2002 00:00:00 Completed [facility] DTAP 2002 00:00:00 Completed [facility] HIB 4 Dose Schedule 2002 00:00:00 Completed [facility] Polio (IPV/OPV) 2002 00:00:00 Completed [facility] DTAP 2002 00:00:00 Completed [facility] HIB 4 Dose Schedule 2002 00:00:00 Completed [facility] Polio (IPV/OPV) 2002 00:00:00 Completed [facility] DTAP 2002 00:00:00 Completed [facility] DTAP 2002 00:00:00 Completed [facility] HIB 4 Dose Schedule 2002 00:00:00 Completed [facility] Polio (IPV/OPV) 2002 00:00:00 Completed [facility] HIB 4 Dose Schedule 2002 00:00:00 Completed [facility] DTAP 2002 00:00:00 Completed [facility] HIB 4 Dose Schedule 2002 00:00:00 Completed [facility] Polio (IPV/OPV) 2002 00:00:00 Completed [facility] DTAP 2002 00:00:00 Completed [facility] HIB 4 Dose Schedule 2002 00:00:00 Completed [facility] Polio (IPV/OPV) 2002 00:00:00 Completed [facility] DTAP 2002 00:00:00 Completed [facility] HIB 4 Dose Schedule 2002 00:00:00 Completed [facility] Polio (IPV/OPV) 2002 00:00:00 Completed [facility] Polio (IPV/OPV) 2002 00:00:00 Completed [facility] DTAP 2002 00:00:00 Completed [facility] HIB 4 Dose Schedule 2002 00:00:00 Completed [facility] Polio (IPV/OPV) 2002 00:00:00 Completed [facility] DTAP 2002 00:00:00 Completed [facility] HIB 4 Dose Schedule 2002 00:00:00 Completed [facility] Polio (IPV/OPV) 2002 00:00:00 Completed [facility] DTAP 2002 00:00:00 Completed [facility] HIB 4 Dose Schedule 2002 00:00:00 Completed [facility] Polio (IPV/OPV) 2002 00:00:00 Completed [facility] DTAP 2002 00:00:00 Completed [facility] HIB 4 Dose Schedule 2002 00:00:00 Completed [facility] Polio (IPV/OPV) 2002 00:00:00 Completed [facility] DTAP 2002 00:00:00 Completed [facility] HIB 4 Dose Schedule 2002 00:00:00 Completed [facility] DTAP 2002 00:00:00 Completed [facility] Polio (IPV/OPV) 2002 00:00:00 Completed [facility] DTAP 2002 00:00:00 Completed [facility] HIB 4 Dose Schedule 2002 00:00:00 Completed [facility] Polio (IPV/OPV) 2002 00:00:00 Completed [facility] HIB 4 Dose Schedule 2002 00:00:00 Completed [facility] DTAP 2002 00:00:00 Completed [facility] HIB 4 Dose Schedule 2002 00:00:00 Completed [facility] Polio (IPV/OPV) 2002 00:00:00 Completed [facility] DTAP 2002 00:00:00 Completed [facility] HIB 4 Dose Schedule 2002 00:00:00 Completed [facility] Polio (IPV/OPV) 2002 00:00:00 Completed [facility] DTAP 2002 00:00:00 Completed [facility] HIB 4 Dose Schedule 2002 00:00:00 Completed [facility] DTAP 2002 00:00:00 Completed [facility] Polio (IPV/OPV) 2002 00:00:00 Completed [facility] Polio (IPV/OPV) 2002 00:00:00 Completed [facility] DTAP 2002 00:00:00 Completed [facility] HIB 4 Dose Schedule 2002 00:00:00 Completed [facility] Polio (IPV/OPV) 2002 00:00:00 Completed [facility] HIB 4 Dose Schedule 2002 00:00:00 Completed [facility] DTAP 2002 00:00:00 Completed [facility] HIB 4 Dose Schedule 2002 00:00:00 Completed [facility] Polio (IPV/OPV) 2002 00:00:00 Completed [facility] DTAP 2002 00:00:00 Completed [facility] HIB 4 Dose Schedule 2002 00:00:00 Completed [facility] Polio (IPV/OPV) 2002 00:00:00 Completed [facility] DTAP 2002 00:00:00 Completed [facility] HIB 4 Dose Schedule 2002 00:00:00 Completed [facility] Polio (IPV/OPV) 2002 00:00:00 Completed [facility] Polio (IPV/OPV) 2002 00:00:00 Completed [facility] DTAP 2002 00:00:00 Completed [facility] HIB 4 Dose Schedule 2002 00:00:00 Completed [facility] Polio (IPV/OPV) 2002 00:00:00 Completed [facility] DTAP 2002 00:00:00 Completed [facility] HIB 4 Dose Schedule 2002 00:00:00 Completed [facility] Polio (IPV/OPV) 2002 00:00:00 Completed [facility] DTAP 2002 00:00:00 Completed [facility] HIB 4 Dose Schedule 2002 00:00:00 Completed [facility] Polio (IPV/OPV) 2002 00:00:00 Completed [facility] DTAP 2002 00:00:00 Completed [facility] HIB 4 Dose Schedule 2002 00:00:00 Completed [facility] Polio (IPV/OPV) 2002 00:00:00 Completed [facility] DTAP 2002 00:00:00 Completed [facility] HIB 4 Dose Schedule 2002 00:00:00 Completed [facility] Polio (IPV/OPV) 2002 00:00:00 Completed [facility] DTAP 2002 00:00:00 Completed [facility] HIB 4 Dose Schedule 2002 00:00:00 Completed [facility] Polio (IPV/OPV) 2002 00:00:00 Completed [facility] DTAP 2002 00:00:00 Completed [facility] HIB 4 Dose Schedule 2002 00:00:00 Completed [facility] Polio (IPV/OPV) 2002 00:00:00 Completed [facility] DTAP 2002 00:00:00 Completed [facility] DTAP 2002 00:00:00 Completed [facility] HIB 4 Dose Schedule 2002 00:00:00 Completed [facility] Polio (IPV/OPV) 2002 00:00:00 Completed [facility] HIB 4 Dose Schedule 2002 00:00:00 Completed [facility] DTAP 2002 00:00:00 Completed [facility] HIB 4 Dose Schedule 2002 00:00:00 Completed [facility] Polio (IPV/OPV) 2002 00:00:00 Completed [facility] DTAP 2002 00:00:00 Completed [facility] Hep B, Adol or Pedi Dosage 2002 00:00:00 Completed [facility] Hep B, Adol or Pedi Dosage 2002 00:00:00 Completed [facility] Polio (IPV/OPV) 2002 00:00:00 Completed [facility] DTAP 2002 00:00:00 Completed [facility] HIB 4 Dose Schedule 2002 00:00:00 Completed [facility] Hep B, Adol or Pedi Dosage 2002 00:00:00 Completed [facility] Polio (IPV/OPV) 2002 00:00:00 Completed [facility] Polio (IPV/OPV) 2002 00:00:00 Completed [facility] DTAP 2002 00:00:00 Completed [facility] HIB 4 Dose Schedule 2002 00:00:00 Completed [facility] Hep B, Adol or Pedi Dosage 2002 00:00:00 Completed [facility] Polio (IPV/OPV) 2002 00:00:00 Completed [facility] DTAP 2002 00:00:00 Completed [facility] HIB 4 Dose Schedule 2002 00:00:00 Completed [facility] Hep B, Adol or Pedi Dosage 2002 00:00:00 Completed [facility] Polio (IPV/OPV) 2002 00:00:00 Completed [facility] DTAP 2002 00:00:00 Completed [facility] HIB 4 Dose Schedule 2002 00:00:00 Completed [facility] Hep B, Adol or Pedi Dosage 2002 00:00:00 Completed [facility] Polio (IPV/OPV) 2002 00:00:00 Completed [facility] DTAP 2002 00:00:00 Completed [facility] HIB 4 Dose Schedule 2002 00:00:00 Completed [facility] Hep B, Adol or Pedi Dosage 2002 00:00:00 Completed [facility] Polio (IPV/OPV) 2002 00:00:00 Completed [facility] DTAP 2002 00:00:00 Completed [facility] HIB 4 Dose Schedule 2002 00:00:00 Completed [facility] Hep B, Adol or Pedi Dosage 2002 00:00:00 Completed [facility] Polio (IPV/OPV) 2002 00:00:00 Completed [facility] DTAP 2002 00:00:00 Completed [facility] DTAP 2002 00:00:00 Completed [facility] HIB 4 Dose Schedule 2002 00:00:00 Completed [facility] Hep B, Adol or Pedi Dosage 2002 00:00:00 Completed [facility] Polio (IPV/OPV) 2002 00:00:00 Completed [facility] DTAP 2002 00:00:00 Completed [facility] HIB 4 Dose Schedule 2002 00:00:00 Completed [facility] HIB 4 Dose Schedule 2002 00:00:00 Completed [facility] Hep B, Adol or Pedi Dosage 2002 00:00:00 Completed [facility] Polio (IPV/OPV) 2002 00:00:00 Completed [facility] DTAP 2002 00:00:00 Completed [facility] HIB 4 Dose Schedule 2002 00:00:00 Completed [facility] Hep B, Adol or Pedi Dosage 2002 00:00:00 Completed [facility] Polio (IPV/OPV) 2002 00:00:00 Completed [facility] Hep B, Adol or Pedi Dosage 2002 00:00:00 Completed [facility] DTAP 2002 00:00:00 Completed [facility] HIB 4 Dose Schedule 2002 00:00:00 Completed [facility] Hep B, Adol or Pedi Dosage 2002 00:00:00 Completed [facility] Polio (IPV/OPV) 2002 00:00:00 Completed [facility] Polio (IPV/OPV) 2002 00:00:00 Completed [facility] DTAP 2002 00:00:00 Completed [facility] HIB 4 Dose Schedule 2002 00:00:00 Completed [facility] Hep B, Adol or Pedi Dosage 2002 00:00:00 Completed [facility] Polio (IPV/OPV) 2002 00:00:00 Completed [facility] DTAP 2002 00:00:00 Completed [facility] HIB 4 Dose Schedule 2002 00:00:00 Completed [facility] Hep B, Adol or Pedi Dosage 2002 00:00:00 Completed [facility] Polio (IPV/OPV) 2002 00:00:00 Completed [facility] DTAP 2002 00:00:00 Completed [facility] HIB 4 Dose Schedule 2002 00:00:00 Completed [facility] Hep B, Adol or Pedi Dosage 2002 00:00:00 Completed [facility] Polio (IPV/OPV) 2002 00:00:00 Completed [facility] DTAP 2002 00:00:00 Completed [facility] HIB 4 Dose Schedule 2002 00:00:00 Completed [facility] Hep B, Adol or Pedi Dosage 2002 00:00:00 Completed [facility] Polio (IPV/OPV) 2002 00:00:00 Completed [facility] DTAP 2002 00:00:00 Completed [facility] HIB 4 Dose Schedule 2002 00:00:00 Completed [facility] Hep B, Adol or Pedi Dosage 2002 00:00:00 Completed [facility] Polio (IPV/OPV) 2002 00:00:00 Completed [facility] DTAP 2002 00:00:00 Completed [facility] HIB 4 Dose Schedule 2002 00:00:00 Completed [facility] Hep B, Adol or Pedi Dosage 2002 00:00:00 Completed [facility] Polio (IPV/OPV) 2002 00:00:00 Completed [facility] DTAP 2002 00:00:00 Completed [facility] HIB 4 Dose Schedule 2002 00:00:00 Completed [facility] Hep B, Adol or Pedi Dosage 2002 00:00:00 Completed [facility] Polio (IPV/OPV) 2002 00:00:00 Completed [facility] DTAP 2002 00:00:00 Completed [facility] DTAP 2002 00:00:00 Completed [facility] HIB 4 Dose Schedule 2002 00:00:00 Completed [facility] Hep B, Adol or Pedi Dosage 2002 00:00:00 Completed [facility] Polio (IPV/OPV) 2002 00:00:00 Completed [facility] HIB 4 Dose Schedule 2002 00:00:00 Completed [facility] DTAP 2002 00:00:00 Completed [facility] HIB 4 Dose Schedule 2002 00:00:00 Completed [facility] Hep B, Adol or Pedi Dosage 2002 00:00:00 Completed [facility] Polio (IPV/OPV) 2002 00:00:00 Completed [facility] DTAP 2002 00:00:00 Completed [facility] HIB 4 Dose Schedule 2002 00:00:00 Completed [facility] Hep B, Adol or Pedi Dosage 2002 00:00:00 Completed [facility] Polio (IPV/OPV) 2002 00:00:00 Completed [facility] Hep B, Adol or Pedi Dosage 2002 00:00:00 Completed [facility] DTAP 2002 00:00:00 Completed [facility] HIB 4 Dose Schedule 2002 00:00:00 Completed [facility] Hep B, Adol or Pedi Dosage 2002 00:00:00 Completed [facility] Polio (IPV/OPV) 2002 00:00:00 Completed [facility] Polio (IPV/OPV) 2002 00:00:00 Completed [facility] DTAP 2002 00:00:00 Completed [facility] HIB 4 Dose Schedule 2002 00:00:00 Completed [facility] Hep B, Adol or Pedi Dosage 2002 00:00:00 Completed [facility] Polio (IPV/OPV) 2002 00:00:00 Completed [facility] DTAP 2002 00:00:00 Completed [facility] HIB 4 Dose Schedule 2002 00:00:00 Completed [facility] Hep B, Adol or Pedi Dosage 2002 00:00:00 Completed [facility] Polio (IPV/OPV) 2002 00:00:00 Completed [facility] DTAP 2002 00:00:00 Completed [facility] HIB 4 Dose Schedule 2002 00:00:00 Completed [facility] Hep B, Adol or Pedi Dosage 2002 00:00:00 Completed [facility] Polio (IPV/OPV) 2002 00:00:00 Completed [facility] DTAP 2002 00:00:00 Completed [facility] HIB 4 Dose Schedule 2002 00:00:00 Completed [facility] Hep B, Adol or Pedi Dosage 2002 00:00:00 Completed [facility] Polio (IPV/OPV) 2002 00:00:00 Completed [facility] DTAP 2002 00:00:00 Completed [facility] HIB 4 Dose Schedule 2002 00:00:00 Completed [facility] DTAP 2002 00:00:00 Completed [facility] Hep B, Adol or Pedi Dosage 2002 00:00:00 Completed [facility] Polio (IPV/OPV) 2002 00:00:00 Completed [facility] HIB 4 Dose Schedule 2002 00:00:00 Completed [facility] DTAP 2002 00:00:00 Completed [facility] HIB 4 Dose Schedule 2002 00:00:00 Completed [facility] Hep B, Adol or Pedi Dosage 2002 00:00:00 Completed [facility] Polio (IPV/OPV) 2002 00:00:00 Completed [facility] DTAP 2002 00:00:00 Completed [facility] HIB 4 Dose Schedule 2002 00:00:00 Completed [facility] Hep B, Adol or Pedi Dosage 2002 00:00:00 Completed [facility] Polio (IPV/OPV) 2002 00:00:00 Completed [facility] Hep B, Adol or Pedi Dosage 2002 00:00:00 Completed [facility] DTAP 2002 00:00:00 Completed [facility] HIB 4 Dose Schedule 2002 00:00:00 Completed [facility] Hep B, Adol or Pedi Dosage 2002 00:00:00 Completed [facility] Polio (IPV/OPV) 2002 00:00:00 Completed [facility] Polio (IPV/OPV) 2002 00:00:00 Completed [facility] DTAP 2002 00:00:00 Completed [facility] HIB 4 Dose Schedule 2002 00:00:00 Completed [facility] Hep B, Adol or Pedi Dosage 2002 00:00:00 Completed [facility] Polio (IPV/OPV) 2002 00:00:00 Completed [facility] DTAP 2002 00:00:00 Completed [facility] HIB 4 Dose Schedule 2002 00:00:00 Completed [facility] Hep B, Adol or Pedi Dosage 2002 00:00:00 Completed [facility] Polio (IPV/OPV) 2002 00:00:00 Completed [facility] DTAP 2002 00:00:00 Completed [facility] HIB 4 Dose Schedule 2002 00:00:00 Completed [facility] Hep B, Adol or Pedi Dosage 2002 00:00:00 Completed [facility] Polio (IPV/OPV) 2002 00:00:00 Completed [facility] DTAP 2002 00:00:00 Completed [facility] HIB 4 Dose Schedule 2002 00:00:00 Completed [facility] Hep B, Adol or Pedi Dosage 2002 00:00:00 Completed [facility] Polio (IPV/OPV) 2002 00:00:00 Completed [facility] DTAP 2002 00:00:00 Completed [facility] HIB 4 Dose Schedule 2002 00:00:00 Completed [facility] Hep B, Adol or Pedi Dosage 2002 00:00:00 Completed [facility] Polio (IPV/OPV) 2002 00:00:00 Completed [facility] DTAP 2002 00:00:00 Completed [facility] DTAP 2002 00:00:00 Completed [facility] HIB 4 Dose Schedule 2002 00:00:00 Completed [facility] Hep B, Adol or Pedi Dosage 2002 00:00:00 Completed [facility] Polio (IPV/OPV) 2002 00:00:00 Completed [facility] DTAP 2002 00:00:00 Completed [facility] HIB 4 Dose Schedule 2002 00:00:00 Completed [facility] HIB 4 Dose Schedule 2002 00:00:00 Completed [facility] Hep B, Adol or Pedi Dosage 2002 00:00:00 Completed [facility] Polio (IPV/OPV) 2002 00:00:00 Completed [facility] DTAP 2002 00:00:00 Completed [facility] HIB 4 Dose Schedule 2002 00:00:00 Completed [facility] Hep B, Adol or Pedi Dosage 2002 00:00:00 Completed [facility] Polio (IPV/OPV) 2002 00:00:00 Completed [facility] Hep B, Adol or Pedi Dosage 2002 00:00:00 Completed [facility] DTAP 2002 00:00:00 Completed [facility] HIB 4 Dose Schedule 2002 00:00:00 Completed [facility] Hep B, Adol or Pedi Dosage 2002 00:00:00 Completed [facility] Polio (IPV/OPV) 2002 00:00:00 Completed [facility] Polio (IPV/OPV) 2002 00:00:00 Completed [facility] DTAP 2002 00:00:00 Completed [facility] HIB 4 Dose Schedule 2002 00:00:00 Completed [facility] Hep B, Adol or Pedi Dosage 2002 00:00:00 Completed [facility] Polio (IPV/OPV) 2002 00:00:00 Completed [facility] DTAP 2002 00:00:00 Completed [facility] HIB 4 Dose Schedule 2002 00:00:00 Completed [facility] Hep B, Adol or Pedi Dosage 2002 00:00:00 Completed [facility] Polio (IPV/OPV) 2002 00:00:00 Completed [facility] DTAP 2002 00:00:00 Completed [facility] HIB 4 Dose Schedule 2002 00:00:00 Completed [facility] Hep B, Adol or Pedi Dosage 2002 00:00:00 Completed [facility] Polio (IPV/OPV) 2002 00:00:00 Completed [facility] DTAP 2002 00:00:00 Completed [facility] DTAP 2002 00:00:00 Completed [facility] HIB 4 Dose Schedule 2002 00:00:00 Completed [facility] Hep B, Adol or Pedi Dosage 2002 00:00:00 Completed [facility] Polio (IPV/OPV) 2002 00:00:00 Completed [facility] HIB 4 Dose Schedule 2002 00:00:00 Completed [facility] DTAP 2002 00:00:00 Completed [facility] HIB 4 Dose Schedule 2002 00:00:00 Completed [facility] Hep B, Adol or Pedi Dosage 2002 00:00:00 Completed [facility] Polio (IPV/OPV) 2002 00:00:00 Completed [facility] Hep B, Adol or Pedi Dosage 2002 00:00:00 Completed [facility] DTAP 2002 00:00:00 Completed [facility] HIB 4 Dose Schedule 2002 00:00:00 Completed [facility] Hep B, Adol or Pedi Dosage 2002 00:00:00 Completed [facility] Polio (IPV/OPV) 2002 00:00:00 Completed [facility] Polio (IPV/OPV) 2002 00:00:00 Completed [facility] DTAP 2002 00:00:00 Completed [facility] HIB 4 Dose Schedule 2002 00:00:00 Completed [facility] Hep B, Adol or Pedi Dosage 2002 00:00:00 Completed [facility] Polio (IPV/OPV) 2002 00:00:00 Completed [facility] DTAP 2002 00:00:00 Completed [facility] HIB 4 Dose Schedule 2002 00:00:00 Completed [facility] Hep B, Adol or Pedi Dosage 2002 00:00:00 Completed [facility] Polio (IPV/OPV) 2002 00:00:00 Completed [facility] DTAP 2002 00:00:00 Completed [facility] HIB 4 Dose Schedule 2002 00:00:00 Completed [facility] Hep B, Adol or Pedi Dosage 2002 00:00:00 Completed [facility] Polio (IPV/OPV) 2002 00:00:00 Completed [facility] DTAP 2002 00:00:00 Completed [facility] HIB 4 Dose Schedule 2002 00:00:00 Completed [facility] Hep B, Adol or Pedi Dosage 2002 00:00:00 Completed [facility] Polio (IPV/OPV) 2002 00:00:00 Completed [facility] DTAP 2002 00:00:00 Completed [facility] DTAP 2002 00:00:00 Completed [facility] HIB 4 Dose Schedule 2002 00:00:00 Completed [facility] Hep B, Adol or Pedi Dosage 2002 00:00:00 Completed [facility] Polio (IPV/OPV) 2002 00:00:00 Completed [facility] HIB 4 Dose Schedule 2002 00:00:00 Completed [facility] DTAP 2002 00:00:00 Completed [facility] HIB 4 Dose Schedule 2002 00:00:00 Completed [facility] Hep B, Adol or Pedi Dosage 2002 00:00:00 Completed [facility] Polio (IPV/OPV) 2002 00:00:00 Completed [facility] DTAP 2002 00:00:00 Completed [facility] HIB 4 Dose Schedule 2002 00:00:00 Completed [facility] Hep B, Adol or Pedi Dosage 2002 00:00:00 Completed [facility] Polio (IPV/OPV) 2002 00:00:00 Completed [facility] Hep B, Adol or Pedi Dosage 2002 00:00:00 Completed [facility] DTAP 2002 00:00:00 Completed [facility] HIB 4 Dose Schedule 2002 00:00:00 Completed [facility] Hep B, Adol or Pedi Dosage 2002 00:00:00 Completed [facility] Polio (IPV/OPV) 2002 00:00:00 Completed [facility] Polio (IPV/OPV) 2002 00:00:00 Completed [facility] DTAP 2002 00:00:00 Completed [facility] HIB 4 Dose Schedule 2002 00:00:00 Completed [facility] Hep B, Adol or Pedi Dosage 2002 00:00:00 Completed [facility] Polio (IPV/OPV) 2002 00:00:00 Completed [facility] DTAP 2002 00:00:00 Completed [facility] HIB 4 Dose Schedule 2002 00:00:00 Completed [facility] Hep B, Adol or Pedi Dosage 2002 00:00:00 Completed [facility] Polio (IPV/OPV) 2002 00:00:00 Completed [facility] DTAP 2002 00:00:00 Completed [facility] HIB 4 Dose Schedule 2002 00:00:00 Completed [facility] Hep B, Adol or Pedi Dosage 2002 00:00:00 Completed [facility] Polio (IPV/OPV) 2002 00:00:00 Completed [facility] DTAP 2002 00:00:00 Completed [facility] HIB 4 Dose Schedule 2002 00:00:00 Completed [facility] Hep B, Adol or Pedi Dosage 2002 00:00:00 Completed [facility] Polio (IPV/OPV) 2002 00:00:00 Completed [facility] DTAP 2002 00:00:00 Completed [facility] HIB 4 Dose Schedule 2002 00:00:00 Completed [facility] Hep B, Adol or Pedi Dosage 2002 00:00:00 Completed [facility] Polio (IPV/OPV) 2002 00:00:00 Completed [facility] DTAP 2002 00:00:00 Completed [facility] DTAP 2002 00:00:00 Completed [facility] HIB 4 Dose Schedule 2002 00:00:00 Completed [facility] Hep B, Adol or Pedi Dosage 2002 00:00:00 Completed [facility] Polio (IPV/OPV) 2002 00:00:00 Completed [facility] HIB 4 Dose Schedule 2002 00:00:00 Completed [facility] DTAP 2002 00:00:00 Completed [facility] HIB 4 Dose Schedule 2002 00:00:00 Completed [facility] Hep B, Adol or Pedi Dosage 2002 00:00:00 Completed [facility] Polio (IPV/OPV) 2002 00:00:00 Completed [facility] DTAP 2002 00:00:00 Completed [facility] Hep B, Adol or Pedi Dosage 2002 00:00:00 Completed [facility] HIB 4 Dose Schedule 2002 00:00:00 Completed [facility] Hep B, Adol or Pedi Dosage 2002 00:00:00 Completed [facility] Polio (IPV/OPV) 2002 00:00:00 Completed [facility] Polio (IPV/OPV) 2002 00:00:00 Completed [facility] DTAP 2002 00:00:00 Completed [facility] HIB 4 Dose Schedule 2002 00:00:00 Completed [facility] Hep B, Adol or Pedi Dosage 2002 00:00:00 Completed [facility] Polio (IPV/OPV) 2002 00:00:00 Completed [facility] DTAP 2002 00:00:00 Completed [facility] HIB 4 Dose Schedule 2002 00:00:00 Completed [facility] Hep B, Adol or Pedi Dosage 2002 00:00:00 Completed [facility] Polio (IPV/OPV) 2002 00:00:00 Completed [facility] DTAP 2002 00:00:00 Completed [facility] HIB 4 Dose Schedule 2002 00:00:00 Completed [facility] Hep B, Adol or Pedi Dosage 2002 00:00:00 Completed [facility] Polio (IPV/OPV) 2002 00:00:00 Completed [facility] DTAP 2002 00:00:00 Completed [facility] HIB 4 Dose Schedule 2002 00:00:00 Completed [facility] Hep B, Adol or Pedi Dosage 2002 00:00:00 Completed [facility] Polio (IPV/OPV) 2002 00:00:00 Completed [facility] DTAP 2002 00:00:00 Completed [facility] HIB 4 Dose Schedule 2002 00:00:00 Completed [facility] Hep B, Adol or Pedi Dosage 2002 00:00:00 Completed [facility] Polio (IPV/OPV) 2002 00:00:00 Completed [facility] DTAP 2002 00:00:00 Completed [facility] DTAP 2002 00:00:00 Completed [facility] HIB 4 Dose Schedule 2002 00:00:00 Completed [facility] Hep B, Adol or Pedi Dosage 2002 00:00:00 Completed [facility] Polio (IPV/OPV) 2002 00:00:00 Completed [facility] HIB 4 Dose Schedule 2002 00:00:00 Completed [facility] DTAP 2002 00:00:00 Completed [facility] HIB 4 Dose Schedule 2002 00:00:00 Completed [facility] Hep B, Adol or Pedi Dosage 2002 00:00:00 Completed [facility] Polio (IPV/OPV) 2002 00:00:00 Completed [facility] DTAP 2002 00:00:00 Completed [facility] HIB 4 Dose Schedule 2002 00:00:00 Completed [facility] Hep B, Adol or Pedi Dosage 2002 00:00:00 Completed [facility] Hep B, Adol or Pedi Dosage 2002 00:00:00 Completed [facility] Polio (IPV/OPV) 2002 00:00:00 Completed [facility] DTAP 2002 00:00:00 Completed [facility] Polio (IPV/OPV) 2002 00:00:00 Completed [facility] HIB 4 Dose Schedule 2002 00:00:00 Completed [facility] Hep B, Adol or Pedi Dosage 2002 00:00:00 Completed [facility] Polio (IPV/OPV) 2002 00:00:00 Completed [facility] DTAP 2002 00:00:00 Completed [facility] HIB 4 Dose Schedule 2002 00:00:00 Completed [facility] Hep B, Adol or Pedi Dosage 2002 00:00:00 Completed [facility] Polio (IPV/OPV) 2002 00:00:00 Completed [facility] DTAP 2002 00:00:00 Completed [facility] HIB 4 Dose Schedule 2002 00:00:00 Completed [facility] Hep B, Adol or Pedi Dosage 2002 00:00:00 Completed [facility] Polio (IPV/OPV) 2002 00:00:00 Completed [facility] DTAP 2002 00:00:00 Completed [facility] HIB 4 Dose Schedule 2002 00:00:00 Completed [facility] Hep B, Adol or Pedi Dosage 2002 00:00:00 Completed [facility] Polio (IPV/OPV) 2002 00:00:00 Completed [facility] DTAP 2002 00:00:00 Completed [facility] HIB 4 Dose Schedule 2002 00:00:00 Completed [facility] Hep B, Adol or Pedi Dosage 2002 00:00:00 Completed [facility] Polio (IPV/OPV) 2002 00:00:00 Completed [facility] DTAP 2002 00:00:00 Completed [facility] HIB 4 Dose Schedule 2002 00:00:00 Completed [facility] DTAP 2002 00:00:00 Completed [facility] Hep B, Adol or Pedi Dosage 2002 00:00:00 Completed [facility] Polio (IPV/OPV) 2002 00:00:00 Completed [facility] DTAP 2002 00:00:00 Completed [facility] HIB 4 Dose Schedule 2002 00:00:00 Completed [facility] HIB 4 Dose Schedule 2002 00:00:00 Completed [facility] Hep B, Adol or Pedi Dosage 2002 00:00:00 Completed [facility] Polio (IPV/OPV) 2002 00:00:00 Completed [facility] DTAP 2002 00:00:00 Completed [facility] DTAP 2002 00:00:00 Completed [facility] HIB 4 Dose Schedule 2002 00:00:00 Completed [facility] Hep B, Adol or Pedi Dosage 2002 00:00:00 Completed [facility] Polio (IPV/OPV) 2002 00:00:00 Completed [facility] Hep B, Adol or Pedi Dosage 2002 00:00:00 Completed [facility] DTAP 2002 00:00:00 Completed [facility] HIB 4 Dose Schedule 2002 00:00:00 Completed [facility] Hep B, Adol or Pedi Dosage 2002 00:00:00 Completed [facility] Polio (IPV/OPV) 2002 00:00:00 Completed [facility] Polio (IPV/OPV) 2002 00:00:00 Completed [facility] DTAP 2002 00:00:00 Completed [facility] HIB 4 Dose Schedule 2002 00:00:00 Completed [facility] Hep B, Adol or Pedi Dosage 2002 00:00:00 Completed [facility] Polio (IPV/OPV) 2002 00:00:00 Completed [facility] DTAP 2002 00:00:00 Completed [facility] HIB 4 Dose Schedule 2002 00:00:00 Completed [facility] Hep B, Adol or Pedi Dosage 2002 00:00:00 Completed [facility] HIB 4 Dose Schedule 2002 00:00:00 Completed [facility] Polio (IPV/OPV) 2002 00:00:00 Completed [facility] DTAP 2002 00:00:00 Completed [facility] HIB 4 Dose Schedule 2002 00:00:00 Completed [facility] Hep B, Adol or Pedi Dosage 2002 00:00:00 Completed [facility] Polio (IPV/OPV) 2002 00:00:00 Completed [facility] DTAP 2002 00:00:00 Completed [facility] Hep B, Adol or Pedi Dosage 2002 00:00:00 Completed [facility] HIB 4 Dose Schedule 2002 00:00:00 Completed [facility] Hep B, Adol or Pedi Dosage 2002 00:00:00 Completed [facility] Polio (IPV/OPV) 2002 00:00:00 Completed [facility] DTAP 2002 00:00:00 Completed [facility] HIB 4 Dose Schedule 2002 00:00:00 Completed [facility] Polio (IPV/OPV) 2002 00:00:00 Completed [facility] Hep B, Adol or Pedi Dosage 2002 00:00:00 Completed [facility] Polio (IPV/OPV) 2002 00:00:00 Completed [facility] DTAP 2002 00:00:00 Completed [facility] HIB 4 Dose Schedule 2002 00:00:00 Completed [facility] Hep B, Adol or Pedi Dosage 2002 00:00:00 Completed [facility] Polio (IPV/OPV) 2002 00:00:00 Completed [facility] DTAP 2002 00:00:00 Completed [facility] HIB 4 Dose Schedule 2002 00:00:00 Completed [facility] Hep B, Adol or Pedi Dosage 2002 00:00:00 Completed [facility] Polio (IPV/OPV) 2002 00:00:00 Completed [facility] DTAP 2002 00:00:00 Completed [facility] HIB 4 Dose Schedule 2002 00:00:00 Completed [facility] Hep B, Adol or Pedi Dosage 2002 00:00:00 Completed [facility] Polio (IPV/OPV) 2002 00:00:00 Completed [facility] DTAP 2002 00:00:00 Completed [facility] HIB 4 Dose Schedule 2002 00:00:00 Completed [facility] Hep B, Adol or Pedi Dosage 2002 00:00:00 Completed [facility] Polio (IPV/OPV) 2002 00:00:00 Completed [facility] DTAP 2002 00:00:00 Completed [facility] HIB 4 Dose Schedule 2002 00:00:00 Completed [facility] Hep B, Adol or Pedi Dosage 2002 00:00:00 Completed [facility] Polio (IPV/OPV) 2002 00:00:00 Completed [facility] DTAP 2002 00:00:00 Completed [facility] HIB 4 Dose Schedule 2002 00:00:00 Completed [facility] Hep B, Adol or Pedi Dosage 2002 00:00:00 Completed [facility] Polio (IPV/OPV) 2002 00:00:00 Completed [facility] DTAP 2002 00:00:00 Completed [facility] HIB 4 Dose Schedule 2002 00:00:00 Completed [facility] Hep B, Adol or Pedi Dosage 2002 00:00:00 Completed [facility] Polio (IPV/OPV) 2002 00:00:00 Completed [facility] DTAP 2002 00:00:00 Completed [facility] DTAP 2002 00:00:00 Completed [facility] HIB 4 Dose Schedule 2002 00:00:00 Completed [facility] Hep B, Adol or Pedi Dosage 2002 00:00:00 Completed [facility] Polio (IPV/OPV) 2002 00:00:00 Completed [facility] HIB 4 Dose Schedule 2002 00:00:00 Completed [facility] DTAP 2002 00:00:00 Completed [facility] HIB 4 Dose Schedule 2002 00:00:00 Completed [facility] Hep B, Adol or Pedi Dosage 2002 00:00:00 Completed [facility] Polio (IPV/OPV) 2002 00:00:00 Completed [facility] DTAP 2002 00:00:00 Completed [facility] HIB 4 Dose Schedule 2002 00:00:00 Completed [facility] Hep B, Adol or Pedi Dosage 2002 00:00:00 Completed [facility] Hep B, Adol or Pedi Dosage 2002 00:00:00 Completed [facility] Hep B, Adol or Pedi Dosage 2002 00:00:00 Completed [facility] Hep B, Adol or Pedi Dosage 2002 00:00:00 Completed [facility] Hep B, Adol or Pedi Dosage 2002 00:00:00 Completed [facility] Hep B, Adol or Pedi Dosage 2002 00:00:00 Completed [facility] Hep B, Adol or Pedi Dosage 2002 00:00:00 Completed [facility] Hep B, Adol or Pedi Dosage 2002 00:00:00 Completed [facility] Hep B, Adol or Pedi Dosage 2002 00:00:00 Completed [facility] Hep B, Adol or Pedi Dosage 2002 00:00:00 Completed [facility] Hep B, Adol or Pedi Dosage 2002 00:00:00 Completed [facility] Hep B, Adol or Pedi Dosage 2002 00:00:00 Completed [facility] Hep B, Adol or Pedi Dosage 2002 00:00:00 Completed [facility] Hep B, Adol or Pedi Dosage 2002 00:00:00 Completed [facility] Hep B, Adol or Pedi Dosage 2002 00:00:00 Completed [facility] Hep B, Adol or Pedi Dosage 2002 00:00:00 Completed [facility] Hep B, Adol or Pedi Dosage 2002 00:00:00 Completed [facility] Hep B, Adol or Pedi Dosage 2002 00:00:00 Completed [facility] Hep B, Adol or Pedi Dosage 2002 00:00:00 Completed [facility] Hep B, Adol or Pedi Dosage 2002 00:00:00 Completed [facility] Hep B, Adol or Pedi Dosage 2002 00:00:00 Completed [facility] Hep B, Adol or Pedi Dosage 2002 00:00:00 Completed [facility] Hep B, Adol or Pedi Dosage 2002 00:00:00 Completed [facility] Hep B, Adol or Pedi Dosage 2002 00:00:00 Completed [facility] Hep B, Adol or Pedi Dosage 2002 00:00:00 Completed [facility] Hep B, Adol or Pedi Dosage 2002 00:00:00 Completed [facility] Hep B, Adol or Pedi Dosage 2002 00:00:00 Completed [facility] Hep B, Adol or Pedi Dosage 2002 00:00:00 Completed [facility] Hep B, Adol or Pedi Dosage 2002 00:00:00 Completed [facility] Hep B, Adol or Pedi Dosage 2002 00:00:00 Completed [facility] Hep B, Adol or Pedi Dosage 2002 00:00:00 Completed [facility] Hep B, Adol or Pedi Dosage 2002 00:00:00 Completed [facility] Hep B, Adol or Pedi Dosage 2002 00:00:00 Completed [facility] Hep B, Adol or Pedi Dosage 2002 00:00:00 Completed [facility] Hep B, Adol or Pedi Dosage 2002 00:00:00 Completed [facility] Hep B, Adol or Pedi Dosage 2002 00:00:00 Completed [facility] Hep B, Adol or Pedi Dosage 2002 00:00:00 Completed [facility] Hep B, Adol or Pedi Dosage 2002 00:00:00 Completed [facility] Hep B, Adol or Pedi Dosage 2002 00:00:00 Completed [facility] Hep B, Adol or Pedi Dosage 2002 00:00:00 Completed [facility] Hep B, Adol or Pedi Dosage 2002 00:00:00 Completed [facility] Hep B, Adol or Pedi Dosage 2002 00:00:00 Completed [facility] Hep B, Adol or Pedi Dosage 2002 00:00:00 Completed [facility] Hep B, Adol or Pedi Dosage 2002 00:00:00 Completed [facility] Hep B, Adol or Pedi Dosage 2002 00:00:00 Completed [facility] Hep B, Adol or Pedi Dosage 2002 00:00:00 Completed [facility] Hep B, Adol or Pedi Dosage 2002 00:00:00 Completed [facility] Hep B, Adol or Pedi Dosage 2002 00:00:00 Completed [facility] Hep B, Adol or Pedi Dosage 2002 00:00:00 Completed [facility] Hep B, Adol or Pedi Dosage 2002 00:00:00 Completed [facility] Hep B, Adol or Pedi Dosage 2002 00:00:00 Completed [facility] Hep B, Adol or Pedi Dosage 2002 00:00:00 Completed [facility] Hep B, Adol or Pedi Dosage 2002 00:00:00 Completed [facility] Hep B, Adol or Pedi Dosage 2002 00:00:00 Completed [facility] Hep B, Adol or Pedi Dosage 2002 00:00:00 Completed [facility] Hep B, Adol or Pedi Dosage 2002 00:00:00 Completed [facility] Hep B, Adol or Pedi Dosage 2002 00:00:00 Completed [facility] Hep B, Adol or Pedi Dosage 2002 00:00:00 Completed [facility] Hep B, Adol or Pedi Dosage 2002 00:00:00 Completed [facility] Hep B, Adol or Pedi Dosage 2002 00:00:00 Completed [facility] Hep B, Adol or Pedi Dosage 2002 00:00:00 Completed [facility] Hep B, Adol or Pedi Dosage 2002 00:00:00 Completed [facility] Hep B, Adol or Pedi Dosage 2002 00:00:00 Completed [facility] Hep B, Adol or Pedi Dosage 2002 00:00:00 Completed [facility] Hep B, Adol or Pedi Dosage 2002 00:00:00 Completed [facility] Hep B, Adol or Pedi Dosage 2002 00:00:00 Completed [facility] Hep B, Adol or Pedi Dosage 2002 00:00:00 Completed [facility] Hep B, Adol or Pedi Dosage 2002 00:00:00 Completed [facility] Hep B, Adol or Pedi Dosage 2002 00:00:00 Completed [facility] Hep B, Adol or Pedi Dosage 2002 00:00:00 Completed [facility] Hep B, Adol or Pedi Dosage 2002 00:00:00 Completed [facility] Hep B, Adol or Pedi Dosage 2002 00:00:00 Completed [facility] Hep B, Adol or Pedi Dosage 2002 00:00:00 Completed [facility] Hep B, Adol or Pedi Dosage 2002 00:00:00 Completed [facility] Hep B, Adol or Pedi Dosage 2002 00:00:00 Completed [facility] Hep B, Adol or Pedi Dosage 2002 00:00:00 Completed [facility] Hep B, Adol or Pedi Dosage 2002 00:00:00 Completed [facility] Hep B, Adol or Pedi Dosage 2002 00:00:00 Completed [facility] Hep B, Adol or Pedi Dosage 2002 00:00:00 Completed [facility] Hep B, Adol or Pedi Dosage 2002 00:00:00 Completed [facility] Hep B, Adol or Pedi Dosage 2002 00:00:00 Completed [facility] Hep B, Adol or Pedi Dosage 2002 00:00:00 Completed [facility] Hep B, Adol or Pedi Dosage 2002 00:00:00 Completed [facility] Hep B, Adol or Pedi Dosage 2002 00:00:00 Completed [facility] Hep B, Adol or Pedi Dosage 2002 00:00:00 Completed [facility] Hep B, Adol or Pedi Dosage 2002 00:00:00 Completed [facility] Hep B, Adol or Pedi Dosage 2002 00:00:00 Completed [facility] Hep B, Adol or Pedi Dosage 2002 00:00:00 Completed [facility] Hep B, Adol or Pedi Dosage 2002 00:00:00 Completed [facility] Hep B, Adol or Pedi Dosage 2002 00:00:00 Completed [facility] Hep B, Adol or Pedi Dosage 2002 00:00:00 Completed [facility] Hep B, Adol or Pedi Dosage 2002 00:00:00 Completed [facility] Hep B, Adol or Pedi Dosage 2002 00:00:00 Completed [facility] Hep B, Adol or Pedi Dosage 2002 00:00:00 Completed [facility] Hep B, Adol or Pedi Dosage 2002 00:00:00 Completed [facility] Hep B, Adol or Pedi Dosage 2002 00:00:00 Completed [facility] Hep B, Adol or Pedi Dosage 2002 00:00:00 Completed [facility] Hep B, Adol or Pedi Dosage 2002 00:00:00 Completed [facility] Hep B, Adol or Pedi Dosage 2002 00:00:00 Completed [facility] Hep B, Adol or Pedi Dosage 2002 00:00:00 Completed [facility] Hep B, Adol or Pedi Dosage 2002 00:00:00 Completed [facility] Hep B, Adol or Pedi Dosage 2002 00:00:00 Completed [facility] Hep B, Adol or Pedi Dosage 2002 00:00:00 Completed [facility] HPV Unknown Completed [facility] HPV Unknown Completed [facility] HPV Unknown Completed [facility] DTAP Unknown Completed [facility] DTAP Unknown Completed [facility] DTAP Unknown Completed [facility] DTAP Unknown Completed [facility] HIB 4 Dose Schedule Unknown Completed [facility] HIB 4 Dose Schedule Unknown Completed [facility] HIB 4 Dose Schedule Unknown Completed [facility] HIB 4 Dose Schedule Unknown Completed [facility] HEPATITIS A Unknown Completed [facility] HEPATITIS A Unknown Completed [facility] Hep B, Adol or Pedi Dosage Unknown Completed [facility] Hep B, Adol or Pedi Dosage Unknown Completed [facility] Hep B, Adol or Pedi Dosage Unknown Completed [facility] Meningococcal Polysaccharide (groups A, C, Y and W-135) conjugate vaccine (MCV4P) Unknown Completed [facility] MMR Unknown Completed [facility] Polio (IPV/OPV) Unknown Completed [facility] Polio (IPV/OPV) Unknown Completed [facility] Polio (IPV/OPV) Unknown Completed [facility] Polio (IPV/OPV) Unknown Completed [facility] TDAP Unknown Completed [facility] Varicella (varivax)(chicken pox) Unknown Completed [facility] Varicella (varivax)(chicken pox) Unknown Completed [facility] DTAP Unknown Completed [facility] MMR Unknown Completed [facility] Pneumococcal 7 Conjugate, PCV7 (Prevnar7) Unknown Completed [facility] Pneumococcal 7 Conjugate, PCV7 (Prevnar7) Unknown Completed [facility] Influenza Virus Vaccine Quad .5 mL IM 6+ MO (FLUZONE/FLULAVAL/FL UARIX) Unknown Completed [facility] Meningococcal Polysaccharide (groups A, C, Y and W-135) conjugate vaccine (MCV4P) Unknown Completed [facility] Meningococcal B, Recombinant Unknown Completed [facility] Meningococcal B, OMV Unknown Completed [facility] SARS-COV-2 COVID-19 PFIZER VACCINE Unknown Completed [facility] SARS-COV-2 COVID-19 PFIZER VACCINE Unknown Completed [facility] HPV Unknown Completed [facility] HPV Unknown Completed [facility] HPV Unknown Completed [facility] DTAP Unknown Completed [facility] DTAP Unknown Completed [facility] DTAP Unknown Completed [facility] DTAP Unknown Completed [facility] HIB 4 Dose Schedule Unknown Completed [facility] HIB 4 Dose Schedule Unknown Completed [facility] HIB 4 Dose Schedule Unknown Completed [facility] HIB 4 Dose Schedule Unknown Completed [facility] HEPATITIS A Unknown Completed [facility] HEPATITIS A Unknown Completed [facility] Hep B, Adol or Pedi Dosage Unknown Completed [facility] Hep B, Adol or Pedi Dosage Unknown Completed [facility] Hep B, Adol or Pedi Dosage Unknown Completed [facility] Meningococcal Polysaccharide (groups A, C, Y and W-135) conjugate vaccine (MCV4P) Unknown Completed [facility] MMR Unknown Completed [facility] Polio (IPV/OPV) Unknown Completed [facility] Polio (IPV/OPV) Unknown Completed [facility] Polio (IPV/OPV) Unknown Completed [facility] Polio (IPV/OPV) Unknown Completed [facility] TDAP Unknown Completed [facility] Varicella (varivax)(chicken pox) Unknown Completed [facility] Varicella (varivax)(chicken pox) Unknown Completed [facility] DTAP Unknown Completed [facility] MMR Unknown Completed [facility] Pneumococcal 7 Conjugate, PCV7 (Prevnar7) Unknown Completed [facility] Pneumococcal 7 Conjugate, PCV7 (Prevnar7) Unknown Completed [facility] Influenza Virus Vaccine Quad .5 mL IM 6+ MO (FLUZONE/FLULAVAL/FL UARIX) Unknown Completed [facility] Meningococcal Polysaccharide (groups A, C, Y and W-135) conjugate vaccine (MCV4P) Unknown Completed [facility] Meningococcal B, Recombinant Unknown Completed [facility] Meningococcal B, OMV Unknown Completed [facility] SARS-COV-2 COVID-19 PFIZER VACCINE Unknown Completed [facility] SARS-COV-2 COVID-19 PFIZER VACCINE Unknown Completed [facility] HPV Unknown Completed [facility] HPV Unknown Completed [facility] HPV Unknown Completed [facility] DTAP Unknown Completed [facility] DTAP Unknown Completed [facility] DTAP Unknown Completed [facility] DTAP Unknown Completed [facility] HIB 4 Dose Schedule Unknown Completed [facility] HIB 4 Dose Schedule Unknown Completed [facility] HIB 4 Dose Schedule Unknown Completed [facility] HIB 4 Dose Schedule Unknown Completed [facility] HEPATITIS A Unknown Completed [facility] HEPATITIS A Unknown Completed [facility] Hep B, Adol or Pedi Dosage Unknown Completed [facility] Hep B, Adol or Pedi Dosage Unknown Completed [facility] Hep B, Adol or Pedi Dosage Unknown Completed [facility] Meningococcal Polysaccharide (groups A, C, Y and W-135) conjugate vaccine (MCV4P) Unknown Completed [facility] MMR Unknown Completed [facility] Polio (IPV/OPV) Unknown Completed [facility] Polio (IPV/OPV) Unknown Completed [facility] Polio (IPV/OPV) Unknown Completed [facility] Polio (IPV/OPV) Unknown Completed [facility] TDAP Unknown Completed [facility] Varicella (varivax)(chicken pox) Unknown Completed [facility] Varicella (varivax)(chicken pox) Unknown Completed [facility] DTAP Unknown Completed [facility] MMR Unknown Completed [facility] Pneumococcal 7 Conjugate, PCV7 (Prevnar7) Unknown Completed [facility] Pneumococcal 7 Conjugate, PCV7 (Prevnar7) Unknown Completed [facility] Influenza Virus Vaccine Quad .5 mL IM 6+ MO (FLUZONE/FLULAVAL/FL UARIX) Unknown Completed [facility] Meningococcal Polysaccharide (groups A, C, Y and W-135) conjugate vaccine (MCV4P) Unknown Completed [facility] Meningococcal B, Recombinant Unknown Completed [facility] Meningococcal B, OMV Unknown Completed [facility] SARS-COV-2 COVID-19 PFIZER VACCINE Unknown Completed [facility] SARS-COV-2 COVID-19 PFIZER VACCINE Unknown Completed [facility] HPV Unknown Completed [facility] HPV Unknown Completed [facility] HPV Unknown Completed [facility] DTAP Unknown Completed [facility] DTAP Unknown Completed [facility] DTAP Unknown Completed [facility] DTAP Unknown Completed [facility] HIB 4 Dose Schedule Unknown Completed [facility] HIB 4 Dose Schedule Unknown Completed [facility] HIB 4 Dose Schedule Unknown Completed [facility] HIB 4 Dose Schedule Unknown Completed [facility] HEPATITIS A Unknown Completed [facility] HEPATITIS A Unknown Completed [facility] Hep B, Adol or Pedi Dosage Unknown Completed [facility] Hep B, Adol or Pedi Dosage Unknown Completed [facility] Hep B, Adol or Pedi Dosage Unknown Completed [facility] Meningococcal Polysaccharide (groups A, C, Y and W-135) conjugate vaccine (MCV4P) Unknown Completed [facility] MMR Unknown Completed [facility] Polio (IPV/OPV) Unknown Completed [facility] Polio (IPV/OPV) Unknown Completed [facility] Polio (IPV/OPV) Unknown Completed [facility] Polio (IPV/OPV) Unknown Completed [facility] TDAP Unknown Completed [facility] Varicella (varivax)(chicken pox) Unknown Completed [facility] Varicella (varivax)(chicken pox) Unknown Completed [facility] DTAP Unknown Completed [facility] MMR Unknown Completed [facility] Pneumococcal 7 Conjugate, PCV7 (Prevnar7) Unknown Completed [facility] Pneumococcal 7 Conjugate, PCV7 (Prevnar7) Unknown Completed [facility] Influenza Virus Vaccine Quad .5 mL IM 6+ MO (FLUZONE/FLULAVAL/FL UARIX) Unknown Completed [facility] Meningococcal Polysaccharide (groups A, C, Y and W-135) conjugate vaccine (MCV4P) Unknown Completed [facility] Meningococcal B, Recombinant Unknown Completed [facility] Meningococcal B, OMV Unknown Completed [facility] SARS-COV-2 COVID-19 PFIZER VACCINE Unknown Completed [facility] SARS-COV-2 COVID-19 PFIZER VACCINE Unknown Completed [facility] HPV Unknown Completed [facility] HPV Unknown Completed [facility] HPV Unknown Completed [facility] DTAP Unknown Completed [facility] DTAP Unknown Completed [facility] DTAP Unknown Completed [facility] DTAP Unknown Completed [facility] HIB 4 Dose Schedule Unknown Completed [facility] HIB 4 Dose Schedule Unknown Completed [facility] HIB 4 Dose Schedule Unknown Completed [facility] HIB 4 Dose Schedule Unknown Completed [facility] HEPATITIS A Unknown Completed [facility] HEPATITIS A Unknown Completed [facility] Hep B, Adol or Pedi Dosage Unknown Completed [facility] Hep B, Adol or Pedi Dosage Unknown Completed [facility] Hep B, Adol or Pedi Dosage Unknown Completed [facility] Meningococcal Polysaccharide (groups A, C, Y and W-135) conjugate vaccine (MCV4P) Unknown Completed [facility] MMR Unknown Completed [facility] Polio (IPV/OPV) Unknown Completed [facility] Polio (IPV/OPV) Unknown Completed [facility] Polio (IPV/OPV) Unknown Completed [facility] Polio (IPV/OPV) Unknown Completed [facility] TDAP Unknown Completed [facility] Varicella (varivax)(chicken pox) Unknown Completed [facility] Varicella (varivax)(chicken pox) Unknown Completed [facility] DTAP Unknown Completed [facility] MMR Unknown [facility] [place] Pneum[place] 7 Conjugate, PCV7 (Prevnar7) Unknown Completed [facility] Pneumococcal 7 Conjugate, PCV7 (Prevnar7) Unknown Completed [facility] Influenza Virus Vaccine Quad .5 mL IM 6+ MO (FLUZONE/FLULAVAL/FL UARIX) Unknown Completed [facility] Meningococcal Polysaccharide (groups A, C, Y and W-135) conjugate vaccine (MCV4P) Unknown Completed [facility] Meningococcal B, Recombinant Unknown Completed [facility] Meningococcal B, OMV Unknown Completed [facility] SARS-COV-2 COVID-19 PFIZER VACCINE Unknown Completed [facility] SARS-COV-2 COVID-19 PFIZER VACCINE Unknown Completed [facility] Influenza Virus Vaccine Quad IM, Preserv and ABX Free 6 MO-64 YRS (FLUCELVAX) Unknown Completed [facility] HPV Unknown Completed [facility] HPV Unknown Completed [facility] HPV Unknown Completed [facility] DTAP Unknown Completed [facility] DTAP Unknown Completed [facility] DTAP Unknown Completed [facility] DTAP Unknown Completed [facility] HIB 4 Dose Schedule Unknown Completed [facility] HIB 4 Dose Schedule Unknown Completed [facility] HIB 4 Dose Schedule Unknown Completed [facility] HIB 4 Dose Schedule Unknown Completed [facility] HEPATITIS A Unknown Completed [facility] HEPATITIS A Unknown Completed [facility] Hep B, Adol or Pedi Dosage Unknown Completed [facility] Hep B, Adol or Pedi Dosage Unknown Completed [facility] Hep B, Adol or Pedi Dosage Unknown Completed [facility] Meningococcal Polysaccharide (groups A, C, Y and W-135) conjugate vaccine (MCV4P) Unknown Completed [facility] MMR Unknown Completed [facility] Polio (IPV/OPV) Unknown Completed [facility] Polio (IPV/OPV) Unknown Completed [facility] Polio (IPV/OPV) Unknown Completed [facility] Polio (IPV/OPV) Unknown Completed [facility] TDAP Unknown Completed [facility] Varicella (varivax)(chicken pox) Unknown Completed [facility] Varicella (varivax)(chicken pox) Unknown Completed [facility] DTAP Unknown Completed [facility] MMR Unknown Completed [facility] Pneumococcal 7 Conjugate, PCV7 (Prevnar7) Unknown Completed [facility] Pneumococcal 7 Conjugate, PCV7 (Prevnar7) Unknown Completed [facility] Influenza Virus Vaccine Quad .5 mL IM 6+ MO (FLUZONE/FLULAVAL/FL UARIX) Unknown Completed [facility] Meningococcal Polysaccharide (groups A, C, Y and W-135) conjugate vaccine (MCV4P) Unknown Completed [facility] Meningococcal B, Recombinant Unknown Completed [facility] Meningococcal B, OMV Unknown Completed [facility] SARS-COV-2 COVID-19 PFIZER VACCINE Unknown Completed [facility] SARS-COV-2 COVID-19 PFIZER VACCINE Unknown Completed [facility] Influenza Virus Vaccine Quad IM, Preserv and ABX Free 6 MO-64 YRS (FLUCELVAX) Unknown Completed [facility] HPV Unknown Completed [facility] HPV Unknown Completed [facility] HPV Unknown Completed [facility] DTAP Unknown Completed [facility] DTAP Unknown Completed [facility] DTAP Unknown Completed [facility] DTAP Unknown Completed [facility] HIB 4 Dose Schedule Unknown Completed [facility] HIB 4 Dose Schedule Unknown Completed [facility] HIB 4 Dose Schedule Unknown Completed [facility] HIB 4 Dose Schedule Unknown Completed [facility] HEPATITIS A Unknown Completed [facility] HEPATITIS A Unknown Completed [facility] Hep B, Adol or Pedi Dosage Unknown Completed [facility] Hep B, Adol or Pedi Dosage Unknown Completed [facility] Hep B, Adol or Pedi Dosage Unknown Completed [facility] Meningococcal Polysaccharide (groups A, C, Y and W-135) conjugate vaccine (MCV4P) Unknown Completed [facility] MMR Unknown Completed [facility] Polio (IPV/OPV) Unknown Completed [facility] Polio (IPV/OPV) Unknown Completed [facility] Polio (IPV/OPV) Unknown Completed [facility] Polio (IPV/OPV) Unknown Completed [facility] TDAP Unknown Completed [facility] Varicella (varivax)(chicken pox) Unknown Completed [facility] Varicella (varivax)(chicken pox) Unknown Completed [facility] DTAP Unknown Completed [facility] MMR Unknown Completed [facility] Pneumococcal 7 Conjugate, PCV7 (Prevnar7) Unknown Completed [facility] Pneumococcal 7 Conjugate, PCV7 (Prevnar7) Unknown Completed [facility] Influenza Virus Vaccine Quad .5 mL IM 6+ MO (FLUZONE/FLULAVAL/FL UARIX) Unknown Completed [facility] Meningococcal Polysaccharide (groups A, C, Y and W-135) conjugate vaccine (MCV4P) Unknown Completed [facility] Meningococcal B, Recombinant Unknown Completed [facility] Meningococcal B, OMV Unknown Completed [facility] SARS-COV-2 COVID-19 PFIZER VACCINE Unknown Completed [facility] SARS-COV-2 COVID-19 PFIZER VACCINE Unknown Completed [facility] Influenza Virus Vaccine Quad IM, Preserv and ABX Free 6 MO-64 YRS (FLUCELVAX) Unknown Completed [facility] HPV Unknown Completed [facility] HPV Unknown Completed [facility] HPV Unknown Completed [facility] DTAP Unknown Completed [facility] DTAP Unknown Completed [facility] DTAP Unknown Completed [facility] DTAP Unknown Completed [facility] HIB 4 Dose Schedule Unknown Completed [facility] HIB 4 Dose Schedule Unknown Completed [facility] HIB 4 Dose Schedule Unknown Completed [facility] HIB 4 Dose Schedule Unknown Completed [facility] HEPATITIS A Unknown Completed [facility] HEPATITIS A Unknown Completed [facility] Hep B, Adol or Pedi Dosage Unknown Completed [facility] Hep B, Adol or Pedi Dosage Unknown Completed [facility] Hep B, Adol or Pedi Dosage Unknown Completed [facility] Meningococcal Polysaccharide (groups A, C, Y and W-135) conjugate vaccine (MCV4P) Unknown Completed [facility] MMR Unknown Completed [facility] Polio (IPV/OPV) Unknown Completed [facility] Polio (IPV/OPV) Unknown Completed [facility] Polio (IPV/OPV) Unknown Completed [facility] Polio (IPV/OPV) Unknown Completed [facility] TDAP Unknown Completed [facility] Varicella (varivax)(chicken pox) Unknown Completed [facility] Varicella (varivax)(chicken pox) Unknown Completed [facility] DTAP Unknown Completed [facility] MMR Unknown Completed [facility] Pneumococcal 7 Conjugate, PCV7 (Prevnar7) Unknown Completed [facility] Pneumococcal 7 Conjugate, PCV7 (Prevnar7) Unknown Completed [facility] Influenza Virus Vaccine Quad .5 mL IM 6+ MO (FLUZONE/FLULAVAL/FL UARIX) Unknown Completed [facility] Meningococcal Polysaccharide (groups A, C, Y and W-135) conjugate vaccine (MCV4P) Unknown Completed [facility] Meningococcal B, Recombinant Unknown Completed [facility] Meningococcal B, OMV Unknown Completed [facility] SARS-COV-2 COVID-19 PFIZER VACCINE Unknown Completed [facility] SARS-COV-2 COVID-19 PFIZER VACCINE Unknown Completed [facility] Influenza Virus Vaccine Quad IM, Preserv and ABX Free 6 MO-64 YRS (FLUCELVAX) Unknown Completed [facility] HPV Unknown Completed [facility] HPV Unknown Completed [facility] HPV Unknown Completed [facility] DTAP Unknown Completed [facility] DTAP Unknown Completed [facility] DTAP Unknown Completed [facility] DTAP Unknown Completed [facility] HIB 4 Dose Schedule Unknown Completed [facility] HIB 4 Dose Schedule Unknown Completed [facility] HIB 4 Dose Schedule Unknown Completed [facility] HIB 4 Dose Schedule Unknown Completed [facility] HEPATITIS A Unknown Completed [facility] HEPATITIS A Unknown Completed [facility] Hep B, Adol or Pedi Dosage Unknown Completed [facility] Hep B, Adol or Pedi Dosage Unknown Completed [facility] Hep B, Adol or Pedi Dosage Unknown Completed [facility] Meningococcal Polysaccharide (groups A, C, Y and W-135) conjugate vaccine (MCV4P) Unknown Completed [facility] MMR Unknown Completed [facility] Polio (IPV/OPV) Unknown Completed [facility] Polio (IPV/OPV) Unknown Completed [facility] Polio (IPV/OPV) Unknown Completed [facility] Polio (IPV/OPV) Unknown Completed [facility] TDAP Unknown Completed [facility] Varicella (varivax)(chicken pox) Unknown Completed [facility] Varicella (varivax)(chicken pox) Unknown Completed [facility] DTAP Unknown Completed [facility] MMR Unknown Completed [facility] Pneumococcal 7 Conjugate, PCV7 (Prevnar7) Unknown Completed [facility] Pneumococcal 7 Conjugate, PCV7 (Prevnar7) Unknown Completed [facility] Influenza Virus Vaccine Quad .5 mL IM 6+ MO (FLUZONE/FLULAVAL/FL UARIX) Unknown Completed [facility] Meningococcal Polysaccharide (groups A, C, Y and W-135) conjugate vaccine (MCV4P) Unknown Completed [facility] Meningococcal B, Recombinant Unknown Completed [facility] Meningococcal B, OMV Unknown Completed [facility] SARS-COV-2 COVID-19 PFIZER VACCINE Unknown Completed [facility] SARS-COV-2 COVID-19 PFIZER VACCINE Unknown Completed [facility] Influenza Virus Vaccine Quad IM, Preserv and ABX Free 6 MO-64 YRS (FLUCELVAX) Unknown Completed [facility] HPV Unknown Completed [facility] HPV Unknown Completed [facility] HPV Unknown Completed [facility] DTAP Unknown Completed [facility] DTAP Unknown Completed [facility] DTAP Unknown Completed [facility] DTAP Unknown Completed [facility] HIB 4 Dose Schedule Unknown Completed [facility] HIB 4 Dose Schedule Unknown Completed [facility] HIB 4 Dose Schedule Unknown Completed [facility] HIB 4 Dose Schedule Unknown Completed [facility] HEPATITIS A Unknown Completed [facility] HEPATITIS A Unknown Completed [facility] Hep B, Adol or Pedi Dosage Unknown Completed [facility] Hep B, Adol or Pedi Dosage Unknown Completed [facility] Hep B, Adol or Pedi Dosage Unknown Completed [facility] Meningococcal Polysaccharide (groups A, C, Y and W-135) conjugate vaccine (MCV4P) Unknown Completed [facility] MMR Unknown Completed [facility] Polio (IPV/OPV) Unknown Completed [facility] Polio (IPV/OPV[facility] Completed [facility] TDAP Unknown Completed [facility] Varicella (varivax)(chicken pox) Unknown Completed [facility] Varicella (varivax)(chicken pox) Unknown Completed [facility] DTAP Unknown Completed [facility] MMR Unknown Completed [facility] Pneumococcal 7 Conjugate, PCV7 (Prevnar7) Unknown Completed [facility] Pneumococcal 7 Conjugate, PCV7 (Prevnar7) Unknown Completed [facility] Influenza Virus Vaccine Quad .5 mL IM 6+ MO (FLUZONE/FLULAVAL/FL UARIX) Unknown Completed [facility] Meningococcal Polysaccharide (groups A, C, Y and W-135) conjugate vaccine (MCV4P) Unknown Completed [facility] Meningococcal B, Recombinant Unknown Completed [facility] Meningococcal B, OMV Unknown Completed [facility] SARS-COV-2 COVID-19 PFIZER VACCINE Unknown Completed [facility] SARS-COV-2 COVID-19 PFIZER VACCINE Unknown Completed [facility] Influenza Virus Vaccine Quad IM, Preserv and ABX Free 6 MO-64 YRS (FLUCELVAX) Unknown Completed [facility] HPV Unknown Completed [facility] HPV Unknown Completed [facility] HPV Unknown Completed [facility] DTAP Unknown Completed [facility] DTAP Unknown Completed [facility] DTAP Unknown Completed [facility] DTAP Unknown Completed [facility] HIB 4 Dose Schedule Unknown Completed [facility] HIB 4 Dose Schedule Unknown Completed [facility] HIB 4 Dose Schedule Unknown Completed [facility] HIB 4 Dose Schedule Unknown Completed [facility] HEPATITIS A Unknown Completed [facility] HEPATITIS A Unknown Completed [facility] Hep B, Adol or Pedi Dosage Unknown Completed [facility] Hep B, Adol or Pedi Dosage Unknown Completed [facility] Hep B, Adol or Pedi Dosage Unknown Completed [facility] Meningococcal Polysaccharide (groups A, C, Y and W-135) conjugate vaccine (MCV4P) Unknown Completed [facility] MMR Unknown Completed [facility] Polio (IPV/OPV) Unknown [facility] ([facility]/OPV) Unknown Completed [facility] Polio (IPV/OPV) Unknown Completed [facility] TDAP Unknown Completed [facility] Varicella (varivax)(chicken pox) Unknown Completed [facility] Varicella (varivax)(chicken pox) Unknown Completed [facility] DTAP Unknown Completed [facility] MMR Unknown Completed [facility] Pneumococcal 7 Conjugate, PCV7 (Prevnar7) Unknown Completed [facility] Pneumococcal 7 Conjugate, PCV7 (Prevnar7) Unknown Completed [facility] Influenza Virus Vaccine Quad .5 mL IM 6+ MO (FLUZONE/FLULAVAL/FL UARIX) Unknown Completed [facility] Meningococcal Polysaccharide (groups A, C, Y and W-135) conjugate vaccine (MCV4P) Unknown Completed [facility] Meningococcal B, Recombinant Unknown Completed [facility] Meningococcal B, OMV Unknown Completed [facility] SARS-COV-2 COVID-19 PFIZER VACCINE Unknown Completed [facility] SARS-COV-2 COVID-19 PFIZER VACCINE Unknown Completed [facility] Influenza Virus Vaccine Quad IM, Preserv and ABX Free 6 MO-64 YRS (FLUCELVAX) Unknown Completed [facility] HPV Unknown Completed [facility] HPV Unknown Completed [facility] HPV Unknown Completed [facility] DTAP Unknown Completed [facility] DTAP Unknown Completed [facility] DTAP Unknown Completed [facility] DTAP Unknown Completed [facility] HIB 4 Dose Schedule Unknown Completed [facility] HIB 4 Dose Schedule Unknown Completed [facility] HIB 4 Dose Schedule Unknown Completed [facility] HIB 4 Dose Schedule Unknown Completed [facility] HEPATITIS A Unknown Completed [facility] HEPATITIS A Unknown Completed [facility] Hep B, Adol or Pedi Dosage Unknown Completed [facility] Hep B, Adol or Pedi Dosage Unknown Completed [facility] Hep B, Adol or Pedi Dosage Unknown Completed [facility] Meningococcal Polysaccharide (groups A, C, Y and W-135) conjugate vaccine (MCV4P) Unknown Completed [facility] MMR Unknown Completed [facility] Polio (IPV/OPV) Unknown Completed [facility] Polio (IPV/OPV) Unknown Completed [facility] Polio (IPV/OPV) Unknown Completed [facility] Polio (IPV/OPV) Unknown Completed [facility] TDAP Unknown Completed [facility] Varicella (varivax)(chicken pox) Unknown Completed [facility] Varicella (varivax)(chicken pox) Unknown Completed [facility] DTAP Unknown Completed [facility] MMR Unknown Completed [facility] Pneumococcal 7 Conjugate, PCV7 (Prevnar7) Unknown Completed [facility] Pneumococcal 7 Conjugate, PCV7 (Prevnar7) Unknown Completed [facility] Influenza Virus Vaccine Quad .5 mL IM 6+ MO (FLUZONE/FLULAVAL/FL UARIX) Unknown Completed [facility] Meningococcal Polysaccharide (groups A, C, Y and W-135) conjugate vaccine (MCV4P) Unknown Completed [facility] Meningococcal B, Recombinant Unknown Completed [facility] Meningococcal B, OMV Unknown Completed [facility] SARS-COV-2 COVID-19 PFIZER VACCINE Unknown Completed [facility] SARS-COV-2 COVID-19 PFIZER VACCINE Unknown Completed [facility] Influenza Virus Vaccine Quad IM, Preserv and ABX Free 6 MO-64 YRS (FLUCELVAX) Unknown Completed [facility] HPV Unknown Completed [facility] HPV Unknown Completed [facility] HPV Unknown Completed [facility] DTAP Unknown Completed [facility] DTAP Unknown Completed [facility] DTAP Unknown Completed [facility] DTAP Unknown Completed [facility] HIB 4 Dose Schedule Unknown Completed [facility] HIB 4 Dose Schedule Unknown Completed [facility] HIB 4 Dose Schedule Unknown Completed [facility] HIB 4 Dose Schedule Unknown Completed [facility] HEPATITIS A Unknown Completed [facility] HEPATITIS A Unknown Completed [facility] Hep B, Adol or Pedi Dosage Unknown Completed [facility] Hep B, Adol or Pedi Dosage Unknown Completed [facility] Hep B, Adol or Pedi Dosage Unknown Completed [facility] Meningococcal Polysaccharide (groups A, C, Y and W-135) conjugate vaccine (MCV4P) Unknown Completed [facility] MMR Unknown Completed [facility] Polio (IPV/OPV) Unknown Completed [facility] Polio (IPV/OPV) Unknown Completed [facility] Polio (IPV/OPV) Unknown Completed [facility] Polio (IPV/OPV) Unknown Completed [facility] TDAP Unknown Completed [facility] Varicella (varivax)(chicken pox) Unknown Completed [facility] Varicella (varivax)(chicken pox) Unknown Completed [facility] DTAP Unknown Completed [facility] MMR Unknown Completed [facility] Pneumococcal 7 Conjugate, PCV7 (Prevnar7) Unknown Completed [facility] Pneumococcal 7 Conjugate, PCV7 (Prevnar7) Unknown Completed [facility] Influenza Virus Vaccine Quad .5 mL IM 6+ MO (FLUZONE/FLULAVAL/FL UARIX) Unknown Completed [facility] Meningococcal Polysaccharide (groups A, C, Y and W-135) conjugate vaccine (MCV4P) Unknown Completed [facility] Meningococcal B, Recombinant Unknown Completed [facility] Meningococcal B, OMV Unknown Completed [facility] SARS-COV-2 COVID-19 PFIZER VACCINE Unknown Completed [facility] SARS-COV-2 COVID-19 PFIZER VACCINE Unknown Completed [facility] Influenza Virus Vaccine Quad IM, Preserv and ABX Free 6 MO-64 YRS (FLUCELVAX) Unknown Completed [facility] HPV Unknown Completed [facility] HPV Unknown Completed [facility] HPV Unknown Completed [facility] DTAP Unknown Completed [facility] DTAP Unknown Completed [facility] DTAP Unknown Completed [facility] DTAP Unknown Completed [facility] HIB 4 Dose Schedule Unknown Completed [facility] HIB 4 Dose Schedule Unknown Completed [facility] HIB 4 Dose Schedule Unknown Completed [facility] HIB 4 Dose Schedule Unknown Completed [facility] HEPATITIS A Unknown Completed [facility] HEPATITIS A Unknown Completed [facility] Hep B, Adol or Pedi Dosage Unknown Completed [facility] Hep B, Adol or Pedi Dosage Unknown Completed [facility] Hep B, Adol or Pedi Dosage Unknown Completed [facility] Meningococcal Polysaccharide (groups A, C, Y and W-135) conjugate vaccine (MCV4P) Unknown Completed [facility] MMR Unknown Completed [facility] Polio (IPV/OPV) Unknown Completed [facility] Polio (IPV/OPV) Unknown Completed [facility] Polio (IPV/OPV) Unknown Completed [facility] Polio (IPV/OPV) Unknown Completed [facility] TDAP Unknown Completed [facility] Varicella (varivax)(chicken pox) Unknown Completed [facility] Varicella (varivax)(chicken pox) Unknown Completed [facility] DTAP Unknown Completed [facility] MMR Unknown Completed [facility] Pneumococcal 7 Conjugate, PCV7 (Prevnar7) Unknown Completed [facility] Pneumococcal 7 Conjugate, PCV7 (Prevnar7) Unknown Completed [facility] Influenza Virus Vaccine Quad .5 mL IM 6+ MO (FLUZONE/FLULAVAL/FL UARIX) Unknown Completed [facility] Meningococcal Polysaccharide (groups A, C, Y and W-135) conjugate vaccine (MCV4P) Unknown Completed [facility] Meningococcal B, Recombinant Unknown Completed [facility] Meningococcal B, OMV Unknown Completed [facility] SARS-COV-2 COVID-19 PFIZER VACCINE Unknown Completed [facility] SARS-COV-2 COVID-19 PFIZER VACCINE Unknown Completed [facility] Influenza Virus Vaccine Quad IM, Preserv and ABX Free 6 MO-64 YRS (FLUCELVAX) Unknown Completed [facility] HPV Unknown Completed [facility] HPV Unknown Completed [facility] HPV Unknown Completed [facility] DTAP Unknown Completed [facility] DTAP Unknown Completed [facility] DTAP Unknown Completed [facility] DTAP Unknown Completed [facility] HIB 4 Dose Schedule Unknown Completed [facility] HIB 4 Dose Schedule Unknown Completed [facility] HIB 4 Dose Schedule Unknown Completed [facility] HIB 4 Dose Schedule Unknown Completed [facility] HEPATITIS A Unknown Completed [facility] HEPATITIS A Unknown Completed [facility] Hep B, Adol or Pedi Dosage Unknown Completed [facility] Hep B, Adol or Pedi Dosage Unknown Completed [facility] Hep B, Adol or Pedi Dosage Unknown Completed [facility] Meningococcal Polysaccharide (groups A, C, Y and W-135) conjugate vaccine (MCV4P) Unknown Completed [facility] MMR Unknown Completed [facility] Polio (IPV/OPV) Unknown Completed [facility] Polio (IPV/OPV) Unknown Completed [facility] Polio (IPV/OPV) Unknown Completed [facility] Polio (IPV/OPV) Unknown Completed [facility] TDAP Unknown Completed [facility] Varicella (varivax)(chicken pox) Unknown Completed [facility] Varicella (varivax)(chicken pox) Unknown Completed [facility] DTAP Unknown Completed [facility] MMR Unknown Completed [facility] Pneumococcal 7 Conjugate, PCV7 (Prevnar7) Unknown Completed [facility] Pneumococcal 7 Conjugate, PCV7 (Prevnar7) Unknown Completed [facility] Influenza Virus Vaccine Quad .5 mL IM 6+ MO (FLUZONE/FLULAVAL/FL UARIX) Unknown Completed [facility] Meningococcal Polysaccharide (groups A, C, Y and W-135) conjugate vaccine (MCV4P) Unknown Completed [facility] Meningococcal B, Recombinant Unknown Completed [facility] Meningococcal B, OMV Unknown Completed [facility] SARS-COV-2 COVID-19 PFIZER VACCINE Unknown Completed [facility] SARS-COV-2 COVID-19 PFIZER VACCINE Unknown Completed [facility] Influenza Virus Vaccine Quad IM, Preserv and ABX Free 6 MO-64 YRS (FLUCELVAX) Unknown Completed [facility] HPV Unknown Completed [facility] HPV Unknown Completed [facility] HPV Unknown Completed [facility] DTAP Unknown Completed [facility] DTAP Unknown Completed [facility] DTAP Unknown Completed [facility] DTAP Unknown Completed [facility] HIB 4 Dose Schedule Unknown Completed [facility] HIB 4 Dose Schedule Unknown Completed [facility] HIB 4 Dose Schedule Unknown Completed [facility] HIB 4 Dose Schedule Unknown Completed [facility] HEPATITIS A Unknown Completed [facility] HEPATITIS A Unknown Completed [facility] Hep B, Adol or Pedi Dosage Unknown Completed [facility] Hep B, Adol or Pedi Dosage Unknown Completed [facility] Hep B, Adol or Pedi Dosage Unknown Completed [facility] Meningococcal Polysaccharide (groups A, C, Y and W-135) conjugate vaccine (MCV4P) Unknown Completed [facility] MMR Unknown Completed [facility] Polio (IPV/OPV) Unknown Completed [facility] Polio (IPV/OPV) Unknown Completed [facility] Polio (IPV/OPV) Unknown Completed [facility] Polio (IPV/OPV) Unknown Completed [facility] TDAP Unknown Completed [facility] Varicella (varivax)(chicken pox) Unknown Completed [facility] Varicella (varivax)(chicken pox) Unknown Completed [facility] DTAP Unknown Completed [facility] MMR Unknown Completed [facility] Pneumococcal 7 Conjugate, PCV7 (Prevnar7) Unknown Completed [facility] Pneumococcal 7 Conjugate, PCV7 (Prevnar7) Unknown Completed [facility] Influenza Virus Vaccine Quad .5 mL IM 6+ MO (FLUZONE/FLULAVAL/FL UARIX) Unknown Completed [facility] Meningococcal Polysaccharide (groups A, C, Y and W-135) conjugate vaccine (MCV4P) Unknown Completed [facility] Meningococcal B, Recombinant Unknown Completed [facility] Meningococcal B, OMV Unknown Completed [facility] SARS-COV-2 COVID-19 PFIZER VACCINE Unknown Completed [facility] SARS-COV-2 COVID-19 PFIZER VACCINE Unknown Completed [facility] Influenza Virus Vaccine Quad IM, Preserv and ABX Free 6 MO-64 YRS (FLUCELVAX) Unknown Completed [facility] HPV Unknown Completed [facility] HPV Unknown Completed [facility] HPV Unknown Completed [facility] DTAP Unknown Completed [facility] DTAP Unknown Completed [facility] DTAP Unknown Completed [facility] DTAP Unknown Completed [facility] HIB 4 Dose Schedule Unknown Completed [facility] HIB 4 Dose Schedule Unknown Completed [facility] HIB 4 Dose Schedule Unknown Completed [facility] HIB 4 Dose Schedule Unknown Completed [facility] HEPATITIS A Unknown Completed [facility] HEPATITIS A Unknown Completed [facility] Hep B, Adol or Pedi Dosage Unknown Completed [facility] Hep B, Adol or Pedi Dosage Unknown Completed [facility] Hep B, Adol or Pedi Dosage Unknown Completed [facility] Meningococcal Polysaccharide (groups A, C, Y and W-135) conjugate vaccine (MCV4P) Unknown Completed [facility] MMR Unknown Completed [facility] Polio (IPV/OPV) Unknown Completed [facility] Polio (IPV/OPV) Unknown Completed [facility] Polio (IPV/OPV) Unknown Completed [facility] Polio (IPV/OPV) Unknown Completed [facility] TDAP Unknown Completed [facility] Varicella (varivax)(chicken pox) Unknown Completed [facility] Varicella (varivax)(chicken pox) Unknown Completed [facility] DTAP Unknown Completed [facility] MMR Unknown Completed [facility] Pneumococcal 7 Conjugate, PCV7 (Prevnar7) Unknown Completed [facility] Pneumococcal 7 Conjugate, PCV7 (Prevnar7) Unknown Completed [facility] Influenza Virus Vaccine Quad .5 mL IM 6+ MO (FLUZONE/FLULAVAL/FL UARIX) Unknown Completed [facility] Meningococcal Polysaccharide (groups A, C, Y and W-135) conjugate vaccine (MCV4P) Unknown Completed [facility] Meningococcal B, Recombinant Unknown Completed [facility] Meningococcal B, OMV Unknown Completed [facility] SARS-COV-2 COVID-19 PFIZER VACCINE Unknown Completed [facility] SARS-COV-2 COVID-19 PFIZER VACCINE Unknown Completed [facility] Influenza Virus Vaccine Quad IM, Preserv and ABX Free 6 MO-64 YRS (FLUCELVAX) Unknown Completed [facility] HPV Unknown Completed [facility] HPV Unknown Completed [facility] HPV Unknown Completed [facility] DTAP Unknown Completed [facility] DTAP Unknown Completed [facility] DTAP Unknown Completed [facility] DTAP Unknown Completed [facility] HIB 4 Dose Schedule Unknown Completed [facility] HIB 4 Dose Schedule Unknown Completed [facility] HIB 4 Dose Schedule Unknown Completed [facility] HIB 4 Dose Schedule Unknown Completed [facility] HEPATITIS A Unknown Completed [facility] HEPATITIS A Unknown Completed [facility] Hep B, Adol or Pedi Dosage Unknown Completed [facility] Hep B, Adol or Pedi Dosage Unknown Completed [facility] Hep B, Adol or Pedi Dosage Unknown Completed [facility] Meningococcal Polysaccharide (groups A, C, Y and W-135) conjugate vaccine (MCV4P) Unknown Completed [facility] MMR Unknown Completed [facility] Polio (IPV/OPV) Unknown Completed [facility] Polio (IPV/OPV) Unknown Completed [facility] Polio (IPV/OPV) Unknown Completed [facility] Polio (IPV/OPV) Unknown Completed [facility] TDAP Unknown Completed [facility] Varicella (varivax)(chicken pox) Unknown Completed [facility] Varicella (varivax)(chicken pox) Unknown Completed [facility] DTAP Unknown Completed [facility] MMR Unknown Completed [facility] Pneumococcal 7 Conjugate, PCV7 (Prevnar7) Unknown Completed [facility] Pneumococcal 7 Conjugate, PCV7 (Prevnar7) Unknown Completed [facility] Influenza Virus Vaccine Quad .5 mL IM 6+ MO (FLUZONE/FLULAVAL/FL UARIX) Unknown Completed [facility] Meningococcal Polysaccharide (groups A, C, Y and W-135) conjugate vaccine (MCV4P) Unknown Completed [facility] Meningococcal B, Recombinant Unknown Completed [facility] Meningococcal B, OMV Unknown Completed [facility] SARS-COV-2 COVID-19 PFIZER VACCINE Unknown Completed [facility] SARS-COV-2 COVID-19 PFIZER VACCINE Unknown Completed [facility] Influenza Virus Vaccine Quad IM, Preserv and ABX Free 6 MO-64 YRS (FLUCELVAX) Unknown Completed [facility] HPV Unknown Completed [facility] HPV Unknown Completed [facility] HPV Unknown Completed [facility] DTAP Unknown Completed [facility] DTAP Unknown Completed [facility] DTAP Unknown Completed [facility] DTAP Unknown Completed [facility] HIB 4 Dose Schedule Unknown Completed [facility] HIB 4 Dose Schedule Unknown Completed [facility] HIB 4 Dose Schedule Unknown Completed [facility] HIB 4 Dose Schedule Unknown Completed [facility] HEPATITIS A Unknown Completed [facility] HEPATITIS A Unknown Completed [facility] Hep B, Adol or Pedi Dosage Unknown Completed [facility] Hep B, Adol or Pedi Dosage Unknown Completed [facility] Hep B, Adol or Pedi Dosage Unknown Completed [facility] Meningococcal Polysaccharide (groups A, C, Y and W-135) conjugate vaccine (MCV4P) Unknown Completed [facility] MMR Unknown Completed [facility] Polio (IPV/OPV) Unknown Completed [facility] Polio (IPV/OPV) Unknown Completed [facility] Polio (IPV/OPV) Unknown Completed [facility] Polio (IPV/OPV) Unknown Completed [facility] TDAP Unknown Completed [facility] Varicella (varivax)(chicken pox) Unknown Completed [facility] Varicella (varivax)(chicken pox) Unknown Completed [facility] DTAP Unknown Completed [facility] MMR Unknown Completed [facility] Pneumococcal 7 Conjugate, PCV7 (Prevnar7) Unknown Completed [facility] Pneumococcal 7 Conjugate, PCV7 (Prevnar7) Unknown Completed [facility] Influenza Virus Vaccine Quad .5 mL IM 6+ MO (FLUZONE/FLULAVAL/FL UARIX) Unknown Completed [facility] Meningococcal Polysaccharide (groups A, C, Y and W-135) conjugate vaccine (MCV4P) Unknown Completed [facility] Meningococcal B, Recombinant Unknown Completed [facility] Meningococcal B, OMV Unknown Completed [facility] SARS-COV-2 COVID-19 PFIZER VACCINE Unknown Completed [facility] SARS-COV-2 COVID-19 PFIZER VACCINE Unknown Completed [facility] Influenza Virus Vaccine Quad IM, Preserv and ABX Free 6 MO-64 YRS (FLUCELVAX) Unknown Completed [facility] HPV Unknown Completed [facility] HPV Unknown Completed [facility] HPV Unknown Completed [facility] DTAP Unknown Completed [facility] DTAP Unknown Completed [facility] DTAP Unknown Completed [facility] DTAP Unknown Completed [facility] HIB 4 Dose Schedule Unknown Completed [facility] HIB 4 Dose Schedule Unknown Completed [facility] HIB 4 Dose Schedule Unknown Completed [facility] HIB 4 Dose Schedule Unknown Completed [facility] HEPATITIS A Unknown Completed [facility] HEPATITIS A Unknown Completed [facility] Hep B, Adol or Pedi Dosage Unknown Completed [facility] Hep B, Adol or Pedi Dosage Unknown Completed [facility] Hep B, Adol or Pedi Dosage Unknown Completed [facility] Meningococcal Polysaccharide (groups A, C, Y and W-135) conjugate vaccine (MCV4P) Unknown Completed [facility] MMR Unknown Completed [facility] Polio (IPV/OPV) Unknown Completed [facility] Polio (IPV/OPV) Unknown Completed [facility] Polio (IPV/OPV) Unknown Completed [facility] Polio (IPV/OPV) Unknown Completed [facility] TDAP Unknown Completed [facility] Varicella (varivax)(chicken pox) Unknown Completed [facility] Varicella (varivax)(chicken pox) Unknown Completed [facility] DTAP Unknown Completed [facility] MMR Unknown Completed [facility] Pneumococcal 7 Conjugate, PCV7 (Prevnar7) Unknown Completed [facility] Pneumococcal 7 Conjugate, PCV7 (Prevnar7) Unknown Completed [facility] Influenza Virus Vaccine Quad .5 mL IM 6+ MO (FLUZONE/FLULAVAL/FL UARIX) Unknown Completed [facility] Meningococcal Polysaccharide (groups A, C, Y and W-135) conjugate vaccine (MCV4P) Unknown Completed [facility] Meningococcal B, Recombinant Unknown Completed [facility] Meningococcal B, OMV Unknown Completed [facility] SARS-COV-2 COVID-19 PFIZER VACCINE Unknown Completed [facility] SARS-COV-2 COVID-19 PFIZER VACCINE Unknown Completed [facility] Influenza Virus Vaccine Quad IM, Preserv and ABX Free 6 MO-64 YRS (FLUCELVAX) Unknown Completed [facility] HPV Unknown Completed [facility] HPV Unknown Completed [facility] HPV Unknown Completed [facility] DTAP Unknown Completed [facility] DTAP Unknown Completed [facility] DTAP Unknown Completed [facility] DTAP Unknown Completed [facility] HIB 4 Dose Schedule Unknown Completed [facility] HIB 4 Dose Schedule Unknown Completed [facility] HIB 4 Dose Schedule Unknown Completed [facility] HIB 4 Dose Schedule Unknown Completed [facility] HEPATITIS A Unknown Completed [facility] HEPATITIS A Unknown Completed [facility] Hep B, Adol or Pedi Dosage Unknown Completed [facility] Hep B, Adol or Pedi Dosage Unknown Completed [facility] Hep B, Adol or Pedi Dosage Unknown Completed [facility] Meningococcal Polysaccharide (groups A, C, Y and W-135) conjugate vaccine (MCV4P) Unknown Completed [facility] MMR Unknown Completed [facility] Polio (IPV/OPV) Unknown Completed [facility] Polio (IPV/OPV) Unknown Completed [facility] Polio (IPV/OPV) Unknown Completed [facility] Polio (IPV/OPV) Unknown Completed [facility] TDAP Unknown Completed [facility] Varicella (varivax)(chicken pox) Unknown Completed [facility] Varicella (varivax)(chicken pox) Unknown Completed [facility] DTAP Unknown Completed [facility] MMR Unknown Completed [facility] Pneumococcal 7 Conjugate, PCV7 (Prevnar7) Unknown Completed [facility] Pneumococcal 7 Conjugate, PCV7 (Prevnar7) Unknown Completed [facility] Influenza Virus Vaccine Quad .5 mL IM 6+ MO (FLUZONE/FLULAVAL/FL UARIX) Unknown Completed [facility] Meningococcal Polysaccharide (groups A, C, Y and W-135) conjugate vaccine (MCV4P) Unknown Completed [facility] Meningococcal B, Recombinant Unknown Completed [facility] Meningococcal B, OMV Unknown Completed [facility] SARS-COV-2 COVID-19 PFIZER VACCINE Unknown Completed [facility] SARS-COV-2 COVID-19 PFIZER VACCINE Unknown Completed [facility] Influenza Virus Vaccine Quad IM, Preserv and ABX Free 6 MO-64 YRS (FLUCELVAX) Unknown Completed [facility] HPV Unknown Completed [facility] HPV Unknown Completed [facility] HPV Unknown Completed [facility] DTAP Unknown Completed [facility] DTAP Unknown Completed [facility] DTAP Unknown Completed [facility] DTAP Unknown Completed [facility] HIB 4 Dose Schedule Unknown Completed [facility] HIB 4 Dose Schedule Unknown Completed [facility] HIB 4 Dose Schedule Unknown Completed [facility] HIB 4 Dose Schedule Unknown Completed [facility] HEPATITIS A Unknown Completed [facility] HEPATITIS A Unknown Completed [facility] Hep B, Adol or Pedi Dosage Unknown Completed [facility] Hep B, Adol or Pedi Dosage Unknown Completed [facility] Hep B, Adol or Pedi Dosage Unknown Completed [facility] Meningococcal Polysaccharide (groups A, C, Y and W-135) conjugate vaccine (MCV4P) Unknown Completed [facility] MMR Unknown Completed [facility] Polio (IPV/OPV) Unknown Completed [facility] Polio (IPV/OPV) Unknown Completed [facility] Polio (IPV/OPV) Unknown Completed [facility] Polio (IPV/OPV) Unknown Completed [facility] TDAP Unknown Completed [facility] Varicella (varivax)(chicken pox) Unknown Completed [facility] Varicella (varivax)(chicken pox) Unknown Completed [facility] DTAP Unknown Completed [facility] MMR Unknown Completed [facility] Pneumococcal 7 Conjugate, PCV7 (Prevnar7) Unknown Completed [facility] Pneumococcal 7 Conjugate, PCV7 (Prevnar7) Unknown Completed [facility] Influenza Virus Vaccine Quad .5 mL IM 6+ MO (FLUZONE/FLULAVAL/FL UARIX) Unknown Completed [facility] Meningococcal Polysaccharide (groups A, C, Y and W-135) conjugate vaccine (MCV4P) Unknown Completed [facility] Meningococcal B, Recombinant Unknown Completed [facility] Meningococcal B, OMV Unknown Completed [facility] SARS-COV-2 COVID-19 PFIZER VACCINE Unknown Completed [facility] SARS-COV-2 COVID-19 PFIZER VACCINE Unknown Completed [facility] Influenza Virus Vaccine Quad IM, Preserv and ABX Free 6 MO-64 YRS (FLUCELVAX) Unknown Completed [facility] Vital Signs Vital Name Observation Time Observation Value Comments S ource Systolic blood pressure 2023-07-06 16:17:00 118 mm[Hg] [facility] Diastolic blood pressure 2023-07-06 16:17:00 69 mm[Hg] [facility] Heart rate 2023-07-06 16:17:00 83 /min [facility] Body temperature 2023-07-06 16:17:00 37 Cara [facility] Body height 2023-07-06 16:17:00 162.6 cm [facility] Body weight 2023-07-06 16:17:00 88.633 kg [facility] BMI 2023-07-06 16:17:00 33.54 kg/m2 [facility] Systolic blood pressure 2023-06-04 19:00:00 117 mm[Hg] [facility] Diastolic blood pressure 2023-06-04 19:00:00 59 mm[Hg] [facility] Heart rate 2023-06-04 19:00:00 74 /min [facility] Respiratory rate 2023-06-04 19:00:00 20 /min [facility] Oxygen saturation in Arterial blood by Pulse oximetry 2023-06-04 19:00:00 100 /min [facility] Body temperature 2023-06-04 15:22:00 36.89 Cara [facility] Body weight 2023-06-04 15:20:00 88.451 kg [facility] BMI 2023-06-04 15:20:00 34.54 kg/m2 [facility] Systolic blood pressure 2023-06-04 13:57:00 116 mm[Hg] [facility] Diastolic blood pressure 2023-06-04 13:57:00 74 mm[Hg] [facility] Heart rate 2023-06-04 13:57:00 75 /min [facility] Body temperature 2023-06-04 13:57:00 36.89 Cara [facility] Respiratory rate 2023-06-04 13:57:00 18 /min [facility] Body height 2023-06-04 13:57:00 160 cm [facility] Body weight 2023-06-04 13:57:00 88.633 kg [facility] BMI 2023-06-04 13:57:00 34.61 kg/m2 [facility] Systolic blood pressure 2023-05-16 23:23:49 118 mm[Hg] [facility] Diastolic blood pressure 2023-05-16 23:23:49 60 mm[Hg] [facility] Heart rate 2023-05-16 23:23:49 80 /min [facility] Respiratory rate 2023-05-16 23:23:49 16 /min [facility] Oxygen saturation in Arterial blood by Pulse oximetry 2023-05-16 23:23:49 99 /min [facility] Body temperature 2023-05-16 21:54:00 37.39 Cara [facility] Body height 2023-05-16 21:54:00 160 cm [facility] Body weight 2023-05-16 21:54:00 87.544 kg [facility] BMI 2023-05-16 21:54:00 34.19 kg/m2 [facility] Systolic blood pressure 2023-05-07 16:02:00 131 mm[Hg] [facility] Diastolic blood pressure 2023-05-07 16:02:00 72 mm[Hg] [facility] Heart rate 2023-05-07 16:02:00 79 /min [facility] Body temperature 2023-05-07 16:02:00 36.89 Cara [facility] Body height 2023-05-07 16:02:00 160 cm [facility] Body weight 2023-05-07 16:02:00 88.089 kg [facility] BMI 2023-05-07 16:02:00 34.40 kg/m2 [facility] Systolic blood pressure 2023-04-23 20:49:00 128 mm[Hg] [facility] Diastolic blood pressure 2023-04-23 20:49:00 88 mm[Hg] [facility] Heart rate 2023-04-23 20:49:00 105 /min [facility] Body temperature 2023-04-23 20:49:00 37.33 Cara [facility] Body height 2023-04-23 20:49:00 160 cm [facility] Body weight 2023-04-23 20:49:00 87.635 kg [facility] BMI 2023-04-23 20:49:00 34.22 kg/m2 [facility] Systolic blood pressure 2022-11-13 14:04:00 134 mm[Hg] [facility] Diastolic blood pressure 2022-11-13 14:04:00 76 mm[Hg] [facility] Heart rate 2022-11-13 14:04:00 76 /min [facility] Body temperature 2022-11-13 14:04:00 37.22 Cara [facility] Body height 2022-11-13 14:04:00 160 cm [facility] Body weight 2022-11-13 14:04:00 82.283 kg [facility] BMI 2022-11-13 14:04:00 32.13 kg/m2 [facility] Systolic blood pressure 2022-10-28 14:04:00 123 mm[Hg] [facility] Diastolic blood pressure 2022-10-28 14:04:00 83 mm[Hg] [facility] Heart rate 2022-10-28 14:04:00 68 /min [facility] Body temperature 2022-10-28 14:04:00 36.94 Cara [facility] Respiratory rate 2022-10-28 14:04:00 18 /min [facility] Body height 2022-10-28 14:04:00 160 cm [facility] Body weight 2022-10-28 14:04:00 82.101 kg [facility] BMI 2022-10-28 14:04:00 32.06 kg/m2 [facility] Systolic blood pressure 2022-08-11 16:19:00 110 mm[Hg] [facility] Diastolic blood pressure 2022-08-11 16:19:00 77 mm[Hg] [facility] Heart rate 2022-08-11 16:19:00 89 /min [facility] Body temperature 2022-08-11 16:19:00 37.33 Cara [facility] Respiratory rate 2022-08-11 16:19:00 20 /min [facility] Body height 2022-08-11 16:19:00 160 cm [facility] Body weight 2022-08-11 16:19:00 78.075 kg [facility] BMI 2022-08-11 16:19:00 30.49 kg/m2 [facility] Oxygen saturation in Arterial blood by Pulse oximetry 2022-08-11 16:19:00 98 /min [facility] Systolic blood pressure 2022-05-27 20:21:00 121 mm[Hg] [facility] Diastolic blood pressure 2022-05-27 20:21:00 69 mm[Hg] [facility] Heart rate 2022-05-27 20:21:00 72 /min [facility] Body temperature 2022-05-27 20:21:00 37.11 Cara [facility] Respiratory rate 2022-05-27 20:21:00 17 /min [facility] Body height 2022-05-27 20:21:00 157.5 cm [facility] Body weight 2022-05-27 20:21:00 84.55 kg [facility] BMI 2022-05-27 20:21:00 34.09 kg/m2 [facility] Systolic blood pressure 2022-02-05 19:09:00 137 mm[Hg] [facility] Diastolic blood pressure 2022-02-05 19:09:00 79 mm[Hg] [facility] Heart rate 2022-02-05 19:09:00 94 /min [facility] 2022-02-05 19:09:00 37.06 Cara [facility] Respiratory rate 2022-02-05 19:09:00 18 /min [facility] Body height 2022-02-05 19:09:00 157.5 cm [facility] weight 2022-02-05 19:09:00 84.732 kg [facility] BMI 2022-02-05 19:09:00 34.17 kg/m2 [facility] Systolic blood pressure 2022-01-31 15:02:00 122 mm[Hg] [facility] Diastolic blood pressure 2022-01-31 15:02:00 77 mm[Hg] [facility] Heart rate 2022-01-31 15:02:00 67 /min [facility] Body temperature 2022-01-31 15:02:00 37.11 Cara [facility] Body height 2022-01-31 15:02:00 157.5 cm [facility] Body weight 2022-01-31 15:02:00 82.555 kg [facility] BMI 2022-01-31 15:02:00 33.29 kg/m2 [facility] Systolic blood pressure 2022-01-02 14:12:00 109 mm[Hg] [facility] Diastolic blood pressure 2022-01-02 14:12:00 67 mm[Hg] [facility] Heart rate 2022-01-02 14:12:00 58 /min [facility] Body temperature 2022-01-02 14:12:00 37.06 Cara [facility] Respiratory rate 2022-01-02 14:12:00 18 /min [facility] Body height 2022-01-02 14:12:00 157.5 cm [facility] Body weight 2022-01-02 14:12:00 80.74 kg [facility] BMI 2022-01-02 14:12:00 32.56 kg/m2 [facility] Systolic blood pressure 2021-01-06 02:00:00 149 mm[Hg] [facility] Diastolic blood pressure 2021-01-06 02:00:00 97 mm[Hg] [facility] Heart rate 2021-01-06 02:00:00 101 /min [facility] Respiratory rate 2021-01-06 02:00:00 17 /min [facility] Oxygen saturation in Arterial blood by Pulse oximetry 2021-01-06 02:00:00 100 /min [facility] Body temperature 2021-01-06 01:46:00 36.06 Cara [facility] Body height 2021-01-06 01:46:00 157.5 cm [facility] Body weight 2021-01-06 01:46:00 81.647 kg [facility] BMI 2021-01-06 01:46:00 32.92 kg/m2 [facility] Body mass index (BMI) [Percentile] Per age and sex 2021-01-06 01:46:00 96.57 % [facility] Systolic blood pressure 2020-04-02 17:35:00 116 mm[Hg] [facility] Diastolic blood pressure 2020-04-02 17:35:00 72 mm[Hg] [facility] Heart rate 2020-04-02 16:53:00 73 /min [facility] Body temperature 2020-04-02 16:53:00 36.44 Cara [facility] Respiratory rate 2020-04-02 16:53:00 18 /min [facility] Body height 2020-04-02 16:53:00 159 cm [facility] Body weight 2020-04-02 16:53:00 82.101 kg [facility] BMI 2020-04-02 16:53:00 32.48 kg/m2 [facility] Oxygen saturation in Arterial blood by Pulse oximetry 2020-04-02 16:53:00 98 /min [facility] Systolic blood pressure 2020-04-02 17:35:00 116 mm[Hg] [facility] Diastolic blood pressure 2020-04-02 17:35:00 72 mm[Hg] [facility] Heart rate 2020-04-02 16:53:00 73 /min [facility] Body temperature 2020-04-02 16:53:00 36.44 Cara [facility] Respiratory rate 2020-04-02 16:53:00 18 /min [facility] Body height 2020-04-02 16:53:00 159 cm [facility] Body weight 2020-04-02 16:53:00 82.101 kg [facility] BMI 2020-04-02 16:53:00 32.48 kg/m2 [facility] Oxygen saturation in Arterial blood by Pulse oximetry 2020-04-02 16:53:00 98 /min [facility] Systolic blood pressure 2020-02-24 19:17:00 121 mm[Hg] [facility] Diastolic blood pressure 2020-02-24 19:17:00 77 mm[Hg] [facility] Heart rate 2020-02-24 19:16:00 84 /min [facility] Body temperature 2020-02-24 19:16:00 36.56 [facility] Respiratory rate 2020-02-24 19:16:00 18 /min [facility] Body weight 2020-02-24 19:16:00 83.598 kg [facility] Oxygen saturation in Arterial blood by Pulse oximetry 2020-02-24 19:16:00 100 /min [facility] Systolic blood pressure 2020-01-30 21:13:00 123 mm[Hg] [facility] Diastolic blood pressure 2020-01-30 21:13:00 70 mm[Hg] [facility] Heart rate 2020-01-30 21:13:00 83 /min [facility] Body temperature 2020-01-30 21:13:00 37.11 Cara [facility] Respiratory rate 2020-01-30 21:13:00 18 /min [facility] Body height 2020-01-30 21:13:00 157.5 cm [facility] Body weight 2020-01-30 21:13:00 85.276 kg [facility] BMI 2020-01-30 21:13:00 34.39 kg/m2 [facility] Systolic blood pressure 2020-01-10 20:41:00 129 mm[Hg] [facility] Diastolic blood pressure 2020-01-10 20:41:00 72 mm[Hg] [facility] Heart rate 2020-01-10 20:41:00 98 /min [facility] Body temperature 2020-01-10 20:41:00 36.72 Cara [facility] Respiratory rate 2020-01-10 20:41:00 18 /min [facility] Body height 2020-01-10 20:41:00 157.5 cm [facility] Body weight 2020-01-10 20:41:00 85.276 kg [facility] BMI 2020-01-10 20:41:00 34.39 kg/m2 [facility] Body temperature 2019-10-12 19:39:00 35.72 Cara [facility] Body height 2019-10-12 19:39:00 159 cm [facility] Body weight 2019-10-12 19:39:00 82.6 kg [facility] BMI 2019-10-12 19:39:00 32.67 kg/m2 [facility] Systolic blood pressure 2019-10-07 18:10:00 121 mm[Hg] [facility] Diastolic blood pressure 2019-10-07 18:10:00 79 mm[Hg] [facility] Heart rate 2019-10-07 18:10:00 77 /min [facility] Body temperature 2019-10-07 18:10:00 36.89 Cara [facility] Respiratory rate 2019-10-07 18:10:00 18 /min [facility] Body height 2019-10-07 18:10:00 157.5 cm [facility] Body weight 2019-10-07 18:10:00 81.647 kg [facility] BMI 2019-10-07 18:10:00 32.92 kg/m2 [facility] Systolic blood pressure 2019-10-06 20:18:00 123 mm[Hg] [facility] Diastolic blood pressure 2019-10-06 20:18:00 86 mm[Hg] [facility] Heart rate 2019-10-06 20:18:00 96 /min [facility] Body temperature 2019-10-06 20:18:00 36.78 Cara [facility] Respiratory rate 2019-10-06 20:18:00 16 /min [facility] Body height 2019-10-06 20:18:00 157.5 cm [facility] Body weight 2019-10-06 20:18:00 80.786 kg [facility] BMI 2019-10-06 20:18:00 32.57 kg/m2 [facility] Oxygen saturation in Arterial blood by Pulse oximetry 2019-10-06 20:18:00 98 /min [facility] Systolic blood pressure 2019-08-04 18:52:00 129 mm[Hg] [facility] Diastolic blood pressure 2019-08-04 18:52:00 78 mm[Hg] [facility] Heart rate 2019-08-04 18:52:00 86 /min [facility] Body temperature 2019-08-04 18:52:00 37.22 Cara [facility] Respiratory rate 2019-08-04 18:52:00 18 /min [facility] Body height 2019-08-04 18:52:00 157.5 cm [facility] Body weight 2019-08-04 18:52:00 84.369 kg [facility] BMI 2019-08-04 18:52:00 34.02 kg/m2 [facility] Systolic blood pressure 2019-05-23 21:28:00 121 mm[Hg] [facility] Diastolic blood pressure 2019-05-23 21:28:00 77 mm[Hg] [facility] Heart rate 2019-05-23 21:28:00 80 /min [facility] Body temperature 2019-05-23 21:28:00 37.39 Cara [facility] Respiratory rate 2019-05-23 21:28:00 18 /min [facility] Body height 2019-05-23 21:28:00 158.5 cm [facility] Body weight 2019-05-23 21:28:00 85.095 kg [facility] BMI 2019-05-23 21:28:00 33.87 kg/m2 [facility] Oxygen saturation in Arterial blood by Pulse oximetry 2019-05-23 21:28:00 100 /min [facility] Systolic blood pressure 2019-05-16 21:51:00 123 mm[Hg] [facility] Diastolic blood pressure 2019-05-16 21:51:00 73 mm[Hg] [facility] Heart rate 2019-05-16 21:51:00 72 /min [facility] Body temperature 2019-05-16 21:51:00 36.78 Cara [facility] Respiratory rate 2019-05-16 21:51:00 18 /min [facility] Body height 2019-05-16 21:51:00 157.5 cm [facility] Body weight 2019-05-16 21:51:00 85.276 kg [facility] BMI 2019-05-16 21:51:00 34.39 kg/m2 [facility] Body temperature 2019-05-03 20:09:00 36.83 Cara [facility] Body height 2019-05-03 20:09:00 157.5 cm [facility] Body weight 2019-05-03 20:09:00 82.2 kg [facility] BMI 2019-05-03 20:09:00 33.14 kg/m2 [facility] Body temperature 2019-03-22 21:03:00 37 Cara [facility] Body weight 2019-03-22 21:03:00 83.4 kg [facility] Systolic blood pressure 2018-11-12 13:21:00 120 mm[Hg] [facility] Diastolic blood pressure 2018-11-12 13:21:00 78 mm[Hg] [facility] Heart rate 2018-11-12 13:21:00 72 /min [facility] Body temperature 2018-11-12 13:21:00 37.83 Cara [facility] Respiratory rate 2018-11-12 13:21:00 18 /min [facility] Body weight 2018-11-12 13:21:00 76.023 kg [facility] BMI 2018-11-12 13:21:00 29.69 kg/m2 [facility] Systolic blood pressure 2018-11-11 13:42:00 123 mm[Hg] [facility] Diastolic blood pressure 2018-11-11 13:42:00 81 mm[Hg] [facility] Heart rate 2018-11-11 13:42:00 64 /min [facility] Body temperature 2018-11-11 13:42:00 36.94 Cara [facility] Respiratory rate 2018-11-11 13:42:00 18 /min [facility] Body height 2018-11-11 13:42:00 160 cm [facility] Body weight 2018-11-11 13:42:00 75.297 kg [facility] BMI 2018-11-11 13:42:00 29.41 kg/m2 [facility] Systolic blood pressure 2018-10-07 20:01:00 123 mm[Hg] [facility] Diastolic blood pressure 2018-10-07 20:01:00 80 mm[Hg] [facility] Heart rate 2018-10-07 20:01:00 97 /min [facility] Body temperature 2018-10-07 20:01:00 36.56 Cara [facility] Respiratory rate 2018-10-07 20:01:00 16 /min [facility] Body height 2018-10-07 20:01:00 158.7 cm [facility] Body weight 2018-10-07 20:01:00 74.844 kg [facility] BMI 2018-10-07 20:01:00 29.72 kg/m2 [facility] Oxygen saturation in Arterial blood by Pulse oximetry 2018-10-07 20:01:00 99 /min [facility] Procedures Procedure Date / Time Performed Performing Clinician Source POCT URINALYSIS W/O SPECIFIC GRAVITY 2023-07-06 00:00:00 Alexandria Whitmore [facility] URINALYSIS 2023-06-04 16:22:00 Jesse Lemos [facility] MAGNESIUM 2023-06-04 15:29:00 Jesse Lemos [facility] COMP. METABOLIC PANEL (37200) 2023-06-04 15:29:00 Jesse Lemos [facility] TOTAL BETA HCG ASSAY 2023-06-04 15:29:00 Jesse Lemos [facility] CBC WITH DIFF 2023-06-04 15:29:00 Jesse Lemos [facility] PAP SMEAR-LIQUID BASED-CP 2023-06-04 14:29:00 Alexandria Whitmore [facility] POCT URINALYSIS W/O SPECIFIC GRAVITY 2023-06-04 00:00:00 Alexandria Whitmore [facility] ASSIGNMENT OF BENEFITS 2023-05-16 23:10:54 Doctor Unassigned, Felt [facility] FIRST TRIMESTER LESS THAN 14 WEEKS 2023-05-16 22:58:46 Gui Aly [facility] CONSENT/REFUSAL FOR DIAGNOSI S AND TREATMENT 2023-05-16 21:38:19 Doctor Unassigned, Felt [facility] OB TRANSVAGINAL 2023-05-08 03:14:52 Alexandria Whitmore [facility] FLU VACC ([id number]), 6 MO-6 4 YRS, .5ML, IM, QUAD (FLUCELVAX) 2023-05-07 16:43:17 Alexandria Whitmore [facility] 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 2023-05-07 06:01:00 Doctor Unassigned, Felt [facility] POCT URINALYSIS W/O SPECIFIC GRAVITY 2023-05-07 00:00:00 Alexandria Whitmore [facility] OB TRANSVAGINAL 2023-04-23 23:35:33 Alexandria Whitmore [facility] ASSIGNMENT OF BENEFITS 2023-04-23 20:27:38 Doctor Unassigned, Felt [facility] POCT TEST 2023-04-23 00:00:00 Alexandria Whitmore [facility] POCT URINALYSIS W/O SPECIFIC GRAVITY 2023-04-23 00:00:00 Haim Alexandria Holland [facility] BI ULTRASOUND BREAST COMPLET E RIGHT 2022-11-12 16:39:22 Rolan Casarez [facility] POCT MOLECULAR STREP 2022-08-11 16:25:00 Unknown, Attending [facility] POCT URINALYSIS W/O SPECIFIC GRAVITY 2022-05-27 20:36:[address] [facility] PATIENT FINANCIAL POLICY 2022-05-27 20:07:26 Doctor Unassigned, Felt [facility] BI ULTRASOUND BREAST COMPLET E BILATERAL 2022-02-21 19:23:00 Rolan Casarez [facility] US PELVIS COMPLETE WITH TRANSVAGINAL 2022-02-21 17:55:34 Rolan Casarez [facility] DISCLOSURE AND CONSENT, MEDICAL AND SURGICAL PROCEDURES 2022-01-31 06:01:00 Doctor Unassigned, Felt [facility] POCT TEST 2022-01-31 00:00:00 Brooklyn Garduno [facility] ASSIGNMENT OF BENEFITS 2022-01-02 14:07:23 Doctor Unassigned, Felt [facility] POCT TEST 2021-01-06 02:44:00 Roma Adame [facility] URINALYSIS 2021-01-06 02:34:00 Roma Adame [facility] URINE DRUG (IMMUNOASSAY) - COMPREHENSIVE DRUG SCREEN W/O REFLEX 2021-01-06 02:34:00 Roma Adame [facility] LACTIC ACID WHOLE BLOOD 2021-01-06 02:23:00 Roma Adame [facility] COMP. METABOLIC PANEL ([id number]) 2021-01-06 02:03:00 Roma Adame [facility] ETHANOL 2021-01-06 02:03:00 Roma Adame [facility] CBC WITH DIFF 2021-01-06 02:03:00 Roma Adame [facility] MENINGOCOCCAL B VACCINE, OMV , 2 DOSE, IM 2020-04-16 16:43:42 Karen Siddiqui [facility] POCT RAPID STREP SCREEN FOR GROUP A 2020-02-24 19:24:00 Karen Siddiqui [facility] EXTERNAL PROVIDER RECORDS 2019-10-13 05:01:00 Doctor Unassigned, Felt [facility] PEDI ELECTROENCEPHALOGRAM 2019-10-12 00:00:00 Dalia Escalante [facility] DISCLOSURE AND CONSENT, MEDICAL AND SURGICAL PROCEDURES 2019-10-07 05:01:00 Doctor Unassigned, Felt [facility] AUTHORIZATION TO RELEASE PHI TO [facility] 2019-10-06 05:01:00 Doctor Unassigned, Felt [facility] BI ULTRASOUND BREAST LIMITED LEFT 2019-08-16 13:29:57 Alexandria Whitmore [facility] CONSENT FOR CONTRACEPTION 2019-08-04 05:01:00 Doctor Unassigned, Felt [facility] POCT TEST 2019-08-04 00:00:00 Alexandria Whitmore [facility] POCT URINALYSIS W/O SPECIFIC GRAVITY 2019-08-04 00:00:00 Alexandria Whitmore [facility] AGREEMENTS AUTHORIZATIONS AN D IRREVOCABLE ASSIGNMENTS (FORM 2001) 2019-06-16 05:01:00 Doctor Unassigned, Felt [facility] CONSENT/REFUSAL FOR DIAGNOSI S AND TREATMENT 2019-05-03 19:11:33 Doctor Unassigned, Felt [facility] URINE CULTURE 2019-03-22 21:53:00 Demetrius Morgan [facility] CONSENT FOR DEPO-PROVERA 2018-11-11 05:01:00 Doctor Unassigned, Felt [facility] MENINGOCOCCAL B VACCINE(TRUMENBA) 2 OR 3 DOSE SERIES, IM 2018-10-07 20:59:48 Karen Siddiqui [facility] MENACTRA ([id number]) VACCINE 2018-10-07 20:59:21 Karen Siddiqui [facility] Encounters Start Date/Time End Date/Time Encounter Type Admission Type Attending Clinicians Care Facility Care Department Encounter ID Source 2021-01-22 07:20:19 Emergency [facility] [id number] [facility] 2023-08-12 09:00:00 2023-08-12 09:00:00 Outpatient P [facility] [id number] [facility] 2023-07-16 08:00:00 2023-07-16 08:00:00 Outpatient R EMILIE LOPEZ [facility] [id number] [facility] 2023-07-09 00:00:00 2023-07-09 00:00:00 Telephone Alexandria Whitmore [facility] [id number] 134 [id number] [facility] 2023-07-06 11:00:00 2023-07-06 11:51:44 Outpatient R ALEXANDRIA WHITMORE [facility] [id number] [facility] 2023-07-06 11:00:00 2023-07-06 11:15:00 Routine Visit Alexandria Whitmore [facility] [id number] 134 [id number] [facility] 2023-06-24 00:00:00 2023-06-24 00:00:00 Telephone Alexandria Whitmore [facility] [id number] 134 [id number] [facility] 2023-06-17 00:00:00 2023-06-17 00:00:00 Telephone Alexandria Whitmore [facility] [id number] 134 [id number] [facility] 2023-06-17 00:00:00 2023-06-17 00:00:00 Patient Secure Msg Doctor Unassigned, Felt [facility] [id number] 134 [id number] [facility] 2023-06-15 09:00:00 2023-06-15 09:00:00 Outpatient R JOHNEMILIE JACOME [facility] [id number] [facility] 2023-06-05 08:15:00 2023-06-05 09:00:01 Outpatient R [facility] [id number] [facility] 2023-06-05 08:15:00 2023-06-05 08:30:00 Well Driller Visit 2, [facility] 1.2.840.114 350.1.13.10 4.2.7.2.686 [id number] [facility] 2023-06-04 10:23:00 2023-06-04 14:08:00 Emergency X JESSE LEMOS [facility] ERT [id number] [facility] 2023-06-04 10:23:00 2023-06-04 14:08:00 Emergency Jesse Lemos [facility] 1.2.840.114 350.1.13.10 4.2.7.2.686 [id number] [facility] 2023-06-04 10:00:00 2023-06-04 10:15:00 Well Driller Visit 2, Adc [facility] 1.2.840.114 350.1.13.10 4.2.7.2.686 [id number] 353 [id number] [facility] 2023-06-04 09:00:00 2023-06-04 09:36:23 Outpatient R ALEXANDRIA WHITMORE [facility] [id number] [facility] 2023-06-04 09:00:00 2023-06-04 09:36:23 Routine Visit Alexandria Whitmore [facility] 1..840.114 350.1.13.10 4.2.7.2.686 [id number] 134 [id number] [facility] 2023-06-04 00:00:00 2023-06-04 00:00:00 Patient Secure Msg Doctor Unassigned, Felt [facility] 1..840.114 350.1.13.10 4.2.7.2.686 [id number] [facility] 2023-05-29 00:00:00 2023-05-29 00:00:00 Patient Secure Msg Alexandria Whitmore [facility] 1..840.114 350.1.13.10 4.2.7.2.686 [id number] 134 [id number] [facility] 2023-05-16 15:57:00 2023-05-16 17:26:00 Emergency X GUI ALY [facility] [id number] [facility] 2023-05-16 15:57:00 2023-05-16 17:26:00 [facility] 1..840.114 350.1.13.10 4.2.7.2.686 [id number] [id number] [facility] 2023-05-07 10:00:00 2023-05-07 11:00:16 Outpatient R ALEXANDRIA WHITMORE [facility] [id number] [facility] 2023-05-07 10:00:00 2023-05-07 11:00:16 Office Visit Alexandria Whitmore [facility] 1..840.114 350.1.13.10 4.2.7.2.686 [id number] 134 [id number] [facility] 2023-05-07 00:00:00 2023-05-07 00:00:00 Letter (Out) Alexandria Whitmore [facility] BUILDING 1.2.840.114 350.1.13.10 4.2.7.2.686 [id number] 134 [id number] [facility] 2023-05-07 00:00:00 2023-05-07 00:00:00 Orders Only Doctor Unassigned, Felt [facility] 1.2.840.114 350.1.13.10 4.2.7.2.686 [id number] [facility] 2023-05-04 00:00:00 2023-05-04 00:00:00 Telephone Alexandria Whitmore [facility] 1.2.840.114 350.1.13.10 4.2.7.2.686 [id number] 134 [id number] [facility] 2023-04-23 14:30:00 2023-04-23 15:15:09 Outpatient R ALEXANDRIA WHITMORE [facility] [id number] [facility] 2023-04-23 14:30:00 2023-04-23 15:15:09 Office Visit Alexandria Whitmore [facility] 1.2.840.114 350.1.13.10 4.2.7.2.686 [id number] 134 [id number] [facility] 2023-04-23 00:00:00 2023-04-23 00:00:00 Orders Only Doctor Unassigned, Felt [facility] 1.2.840.114 350.1.13.10 4.2.7.2.686 [id number] [facility] 2023-04-08 14:00:00 2023-04-08 14:00:00 Outpatient R ALEXANDRIA WHITMORE [facility] [id number] [facility] 2023-01-05 08:30:00 2023-01-05 08:30:00 Outpatient ROLAN PALOMINO [facility] [id number] [facility] 2022-12-02 10:00:00 2022-12-02 12:30:57 Outpatient MILAN PATEL [facility] [id number] [facility] 2022-12-02 10:00:00 2022-12-02 12:30:57 Office Visit Leslie Carreon Joseph [facility] 1.2840.114 350.1.13.10 4.2.7.2.686 [id number] [facility] 2022-12-01 00:00:00 2022-12-01 00:00:00 Telephone Leslie Carreon [facility] 1.2840.114 350.1.13.10 4.2.7.2.686 [id number] 161 [id number] [facility] 2022-11-26 00:00:00 2022-11-26 00:00:00 Telephone Corrine Llanos [facility] 1.840.114 350.1.13.10 4.2.7.2.686 [id number] 161 [id number] [facility] 2022-11-18 09:00:00 2022-11-18 14:20:05 Outpatient ROLAN PALOMINO [facility] [id number] [facility] 2022-11-18 09:00:00 2022-11-18 14:20:05 Office Visit Leslie Carreon [facility] 1.840.114 350.1.13.10 4.2.7.2.686 [id number] 161 [id number] [facility] 2022-11-18 10:15:00 2022-11-18 10:30:00 Well Driller Visit Lab, Haroldo Casarez [facility] 1.840.114 350.1.13.10 4.2.7.2.686 [id number] 353 [id number] [facility] 2022-11-13 09:00:00 2022-11-13 09:31:00 Outpatient R ALEXANDRIA WHITMORE [facility] [id number] [facility] 2022-11-13 09:00:00 2022-11-13 09:31:00 Office Visit Alexandria Whitmore [facility] 1.2.840.114 350.1.13.10 4.2.7.2.686 [id number] 134 [id number] [facility] 2022-11-13 00:00:00 2022-11-13 00:00:00 Letter (Out) Alexandria Whitmore [facility] 1.2.840.114 350.1.13.10 4.2.7.2.686 [id number] 134 [id number] [facility] 2022-11-12 10:15:25 2022-11-12 23:59:00 [facility] [id number] [facility] 2022-11-12 10:15:25 2022-11-12 23:59:00 Hospital Encounter Rolan Casarez [facility] 1..840.114 350.1.13.10 4.2.7.2.686 [id number] [facility] 2022-10-28 09:30:00 2022-10-28 09:59:16 Outpatient R HERMELINDO ROLAN [facility] [id number] [facility] 2022-10-28 09:30:00 2022-10-28 09:59:16 Office Visit Hermelindo [facility] 1.2.840.114 350.1.13.10 4.2.7.2.686 [id number] 134 [id number] [facility] 2022-10-28 00:00:00 2022-10-28 00:00:00 Letter (Out) Hermelindo [facility] 1..840.114 350.1.13.10 4.2.7.2.686 [id number] 134 [id number] [facility] 2022-08-11 11:00:00 2022-08-11 11:47:20 Outpatient R NILAM VALLECILLOPHILL [facility] [id number] [facility] 2022-08-11 11:00:00 2022-08-11 11:47:20 Urgent Care Nilam Vallecillophill Unknown, Attending [facility] 1..840.114 350.1.13.10 4.2.7.2.686 [id number] [facility] 2022-06-16 00:00:00 2022-06-16 00:00:00 Telephone Hermelindo Rolan [facility] 1..840.114 350.1.13.10 4.2.7.2.686 [id number] 134 [id number] [facility] 2022-06-13 14:05:25 2022-06-13 23:59:00 Outpatient ROLAN PALOMINO [facility] [id number] [facility] 2022-06-13 14:05:25 2022-06-13 23:59:00 Hospital Encounter Rolan Casarez [facility] 1..840.114 350.1.13.10 4.2.7.2.686 [id number] [facility] 2022-06-06 00:00:00 2022-06-06 00:00:00 Outpatient ROLAN PALOMINO [facility] [id number] [facility] 2022-05-27 14:00:00 2022-05-27 15:06:27 Outpatient ROLAN PALOMINO [facility] [id number] [facility] 2022-05-27 14:00:00 2022-05-27 15:06:27 Office Visit Hermelindo Rolan [facility] BU[facility] 1.2840.114 350.1.13.10 4.2.7.2.686 [id number] 134 [id number] [facility] 2022-05-27 00:00:00 2022-05-27 00:00:00 Orders Only Doctor Unassigned, Felt [facility] 1.2.840.114 350.1.13.10 4.2.7.2.686 [id number] [id number] [facility] 2022-02-21 12:00:22 2022-02-21 23:59:00 Hospital Encounter Hermelindo [facility] 1.20.114 350.1.13.10 4.2.7.2.686 [id number] 800 [id number] [facility] 2022-02-21 10:48:03 2022-02-21 11:59:00 Outpatient R ROLAN CASAREZ [facility] [id number] [facility] 2022-02-21 10:48:03 2022-02-21 11:59:00 Hospital Encounter Hermelindo [facility] 1.2.114 350.1.13.10 4.2.7.2.686 [id number] [facility] 2022-02-05 13:00:00 2022-02-05 13:36:35 Outpatient R BROOKLYN GARDUNO [facility] [id number] [facility] 2022-02-05 13:00:00 2022-02-05 13:36:35 Office Visit Brooklyn Garduno [facility] 1.2.114 350.1.13.10 4.2.7.2.686 [id number] 134 [id number] [facility] 2022-02-05 00:00:00 2022-02-05 00:00:00 Telephone AdBrooklyn barron [facility] 1.84.114 350.1.13.10 4.2.7.2.686 [id number] 134 [id number] [facility] 2022-02-05 00:00:00 2022-02-05 00:00:00 Letter (Out) AdbeatriceBrooklyn [facility] 1..114 350.1.13.10 4.2.7.2.686 [id number] 134 [id number] [facility] 2022-01-31 08:30:00 2022-01-31 09:33:19 Outpatient R LAUREEN BROOKLYN [facility] [id number] [facility] 2022-01-31 08:30:00 2022-01-31 09:33:19 Office Visit Laureen [facility] 1.84114 350.1.13.10 4.2.7.2.686 [id number] 134 [id number] [facility] 2022-01-31 00:00:00 2022-01-31 00:00:00 Orders Only Doctor Unassigned, Felt [facility] 1..114 350.1.13.10 4.2.7.2.686 [id number] [facility] 2022-01-31 00:00:00 2022-01-31 00:00:00 Letter (Out) AdbeatriceBrooklyn [facility] 1.284.114 350.1.13.10 4.2.7.2.686 [id number] 134 [id number] [facility] 2022-01-13 09:00:00 2022-01-13 09:00:00 Outpatient R MILAN DELCID [facility] [id number] Roro mackenzie [facility] 2022-01-13 00:00:00 2022-01-13 00:00:00 Telephone Liu Carlton [facility] [place] 1.2.840.114 350.1.13.10 4.2.7.2.686 [id number] 161 [id number] [facility] 2022-01-10 13:00:00 2022-01-10 13:00:00 Outpatient R HAYLEY CASTILLO [facility] [id number] [facility] 2022-01-02 10:45:00 2022-01-02 11:00:00 Well Driller Visit 2, Adc Lab Rolan Casarez [facility] BU[facility] 1.2840.114 350.1.13.10 4.2.7.2.686 [id number] [facility] 2022-01-02 09:30:00 2022-01-02 10:12:42 Outpatient R HERMELINDO ROLAN [facility] [id number] [facility] 2022-01-02 09:30:00 2022-01-02 10:12:42 Office Visit Rolan Casarez [facility] 1.2840.114 350.1.13.10 4.2.7.2.686 [id number] 134 [id number] [facility] 2022-01-02 00:00:00 2022-01-02 00:00:00 Orders Only Doctor Unassigned, Felt [facility] 1.2840.114 350.1.13.10 4.2.7.2.686 [id number] [facility] 2021-04-03 10:40:00 2021-04-03 10:40:00 Outpatient R KAREN SIDDIQUI [facility] [id number] [facility] 2021-02-22 00:00:00 2021-02-22 00:00:[address] [facility] 1.2.840.114 350.1.13.10 4.2.7.2.686 [id number] 225 [id number] [facility] 2021-02-12 00:00:00 2021-02-12 00:00:00 Telephone Rolan Casarez [facility] BUILDING 1.2840.114 350.1.13.10 4.2.7.2.686 [id number] 134 [id number] [facility] 2021-01-05 20:38:00 2021-01-05 22:55:00 Emergency Roma Adame [facility] 1.2840.114 350.1.13.10 4.2.7.2.686 [id number] [facility] 2020-08-23 15:00:00 2020-08-23 15:00:00 Outpatient ROLAN PALOMINO [facility] [id number] [facility] 2020-08-06 14:00:00 2020-08-06 14:00:00 Outpatient ROLAN PALOMINO [facility] [id number] [facility] 2020-07-06 11:20:00 2020-07-06 11:20:34 Outpatient EMELY RICO [facility] [id number] [facility] 2020-06-15 11:20:00 2020-06-15 12:18:13 Outpatient EMELY RICO [facility] [id number] [facility] 2020-06-12 00:00:00 2020-06-12 00:00:00 Patient Outreach Chinmay Aly [facility] 1.2.840.114 350.1.13.10 4.2.7.2.686 [id number] 2020-06-12 00:00:00 2020-06-12 00:00:00 Patient Outreach Chinmay Aly [facility] 1.2.840.114 350.1.13.10 4.2.7.2.686 [id number] [facility] 2020-04-25 00:00:00 2020-04-25 00:00:00 Telephone Alexandria Whitmore [facility] Building 1.2.840.114 350.1.13.10 4.2.7.2.686 [id number] 134 [id number] 2020-04-25 00:00:00 2020-04-25 00:00:00 Telephone Alexandria Whitmore [facility] Building 1.2.840.114 350.1.13.10 4.2.7.2.686 [id number] 134 [id number] [facility] 2020-04-16 10:23:22 2020-04-16 10:43:22 Nurse Visit Nurse, Alena [facility] 1.2.840.114 350.1.13.10 4.2.7.2.686 [id number] 225 [id number] [facility] 2020-04-16 10:20:00 2020-04-16 10:20:00 Outpatient R [facility] [id number] [facility] 2020-04-03 11:08:11 2020-04-03 11:23:11 Well Driller Visit 2, Adc Lab Alena Erickson [facility] 1.2.840.114 350.1.13.10 4.2.7.2.686 [id number] [facility] 2020-04-03 11:00:00 2020-04-03 11:00:00 Outpatient R ALENA ERICKSON [facility] [id number] [facility] 2020-04-02 11:30:50 2020-04-02 13:18:47 [facility] 1.2.840.114 350.1.13.10 4.2.7.2.686 [id number] [facility] 2020-04-02 10:47:55 2020-04-02 11:50:03 Office Visit Karen Siddiqui [facility] Building 1.2.840.114 350.1.13.10 4.2.7.2.686 [id number] 2020-04-02 10:47:55 2020-04-02 11:50:03 Office Visit Karen Siddiqui [facility] Building 1.2.840.114 350.1.13.10 4.2.7.2.686 [id number] [facility] 2020-04-02 10:40:00 2020-04-02 10:40:00 Outpatient R KARNE SIDDIQUI [facility] [id number] [facility] 2020-04-02 00:00:00 2020-04-02 00:00:00 Letter (Out) Alena [facility] 1.2.840.114 350.1.13.10 4.2.7.2.686 [id number] [facility] 2020-02-24 13:11:12 2020-02-24 14:13:29 Office Visit Karen Siddiqui [facility] Building 1.2.840.114 350.1.13.10 4.2.7.2.686 [id number] [facility] 2020-02-24 13:00:00 2020-02-24 13:00:00 Outpatient R KAREN SIDDIQUI [facility] [id number] [facility] 2020-02-01 13:00:00 2020-02-01 13:00:00 Outpatient R [facility] [id number] [facility] 2020-01-30 14:47:20 2020-01-30 15:35:45 Office Visit Alexandria Whitmore [facility] Building 1.2.840.114 350.1.13.10 4.2.7.2.686 [id number] [facility] 2020-01-30 15:00:00 2020-01-30 15:00:00 Outpatient R ALEXANDRIA WHITMORE [facility] [id number] [facility] 2020-01-10 14:35:02 2020-01-10 16:02:32 Office Visit Hermelindo Rolan [facility] 1..840.114 350.1.13.10 4.2.7.2.686 [id number] [facility] 2020-01-10 14:45:00 2020-01-10 14:45:00 Outpatient R HERMELINDO [facility] [id number] [facility] 2019-12-15 10:45:00 2019-12-15 10:45:00 Outpatient Suly CASAREZ [facility] [id number] [facility] 2019-12-15 00:00:00 2019-12-15 00:00:00 Telephone Alena Erickson [facility] 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 [facility] ..840.114 350.1.13.10 4.2.7.2.686 [id number] [facility] 2019-11-30 15:00:00 2019-11-30 15:00:00 Outpatient R [facility] [id number] [facility] 2019-11-18 09:30:00 2019-11-18 09:30:00 Outpatient R HERMELINDO [facility] [id number] [facility] 2019-11-14 00:00:00 2019-11-14 00:00:00 Telephone Alexandria Whitmore [facility] 1..840.114 350.1.13.10 4.2.7.2.686 [id number] 134 [id number] [facility] 2019-10-13 00:00:00 2019-10-13 00:00:00 Orders Only Doctor Unassigned, Felt [facility] 1.114 350.1.13.10 4.2.7.2.686 [id number] [facility] 2019-10-12 12:44:00 2019-10-12 23:59:00 Hospital Encounter Kallie Dalia Barakat Eeg, Sapna Pedi Neuro [facility] 1.2114 350.1.13.10 4.2.7.2.686 [id number] [facility] 2019-10-12 12:44:33 2019-10-12 13:44:33 Office Visit Dalia Escalante [facility] 1..114 350.1.13.10 4.2.7.2.686 [id number] [facility] 2019-10-12 13:00:00 2019-10-12 13:00:00 Outpatient R DALIA ESCALANTE [facility] [id number] [facility] 2019-10-07 12:46:26 2019-10-07 13:32:19 Office Visit Alexandria [facility]more [facility] 1.84.114 350.1.13.10 4.2.7.2.686 [id number] [facility] 2019-10-07 13:00:00 2019-10-07 13:00:00 Outpatient R ALEXANDRIA WHITMORE [facility] [id number] [facility] 2019-10-07 00:00:00 2019-10-07 00:00:00 Orders Only Doctor Unassigned, Felt [facility] 1.2114 350.1.13.10 4.2.7.2.686 [id number] [id number] [facility] 2019-10-06 14:55:54 2019-10-06 17:13:05 Office Visit Alena [facility] 1.84.114 350.1.13.10 4.2.7.2.686 [id number] [facility] 2019-10-06 15:00:00 2019-10-06 15:00:00 Outpatient R ALENA ERICKSON [facility] [id number] [facility] 2019-10-06 00:00:00 2019-10-06 00:00:00 Orders Only Doctor Unassigned, Felt [facility] 1.84.114 350.1.13.10 4.2.7.2.686 [id number] [facility] 2019-10-05 00:00:00 2019-10-05 00:00:00 Telephone [facility] 1.840.114 350.1.13.10 4.2.7.2.686 [id number] [facility] 2019-09-28 15:30:00 2019-09-28 15:30:00 Outpatient R [facility] [id number] [facility] 2019-09-15 15:00:00 2019-09-15 15:00:00 Outpatient R ROLAN CASAREZ [facility] [id number] [facility] 2019-08-31 15:00:00 2019-08-31 15:00:00 Outpatient R [facility] [id number] [facility] 2019-08-16 07:38:13 2019-08-16 23:59:00 Outpatient R ALEXANDRIA WHITMORE [facility] [id number] [facility] 2019-08-16 07:38:00 2019-08-16 23:59:00 Hospital Encounter Alexandria Whitmore [facility] 1.840.114 350.1.13.10 4.2.7.2.686 [id number] [facility] 2019-08-08 00:00:00 2019-08-08 00:00:00 Case Management Rolan Casarez [facility] 1.2.840.114 350.1.13.10 4.2.7.2.686 [id number] 134 [id number] [facility] 2019-08-04 13:33:06 2019-08-04 14:36:24 Office Visit Alexandria [facility]more [facility] 1.2.840.114 350.1.13.10 4.2.7.2.686 [id number] 134 [id number] [facility] 2019-08-04 13:30:00 2019-08-04 13:30:00 Outpatient R ALEXANDRIA WHITMORE [facility] [id number] [facility] 2019-08-04 00:00:00 2019-08-04 00:00:00 Orders Only Doctor Unassigned, Felt [facility] 1.2.840.114 350.1.13.10 4.2.7.2.686 [id number] [facility] 2019-07-19 00:00:00 2019-07-19 00:00:00 Telephone Alexandria [facility]more [facility] 1.2.840.114 350.1.13.10 4.2.7.2.686 [id number] 134 [id number] [facility] 2019-06-16 11:24:51 2019-06-16 11:39:51 Well Driller Visit 2, Adc Lab Alena [facility] 1.2.840.114 350.1.13.10 4.2.7.2.686 [id number] [facility] 2019-06-16 11:15:00 2019-06-16 11:15:00 Outpatient ALENA BLANTON [facility] [id number] [facility] 2019-06-16 00:00:00 2019-06-16 00:00:00 Orders Only Doctor Unassigned, Felt [facility] 1.2.840.114 350.1.13.10 4.2.7.2.686 [id number] [facility] 2019-06-16 00:00:00 2019-06-16 00:00:00 Telephone [facility] 1.2.840.114 350.1.13.10 4.2.7.2.686 [id number] [facility] 2019-06-15 10:45:00 2019-06-15 10:45:00 Outpatient R HERMELINDO [facility] [id number] [facility] 2019-06-15 08:26:10 2019-06-15 08:56:10 Telemedici ne Visit Hermelindo [facility] 1..840.114 350.1.13.10 4.2.7.2.686 [id number] [facility] 2019-06-09 08:45:00 2019-06-09 08:45:00 [facility] [id number] [facility] 2019-06-02 15:45:00 2019-06-02 15:45:00 Out[facility] [id number] [facility] 2019-05-31 13:45:00 2019-05-31 13:45:00 Outpatient R [facility] [id number] [facility] 2019-05-23 14:21:31 2019-05-23 16:27:38 Office Visit [facility] 1..840.114 350.1.13.10 4.2.7.2.686 [id number] [facility] 2019-05-23 14:30:00 2019-05-23 14:30:00 Outpatient R ALENA ERICKSON [facility] [id number] [facility] 2019-05-23 00:00:00 2019-05-23 00:00:00 Letter (Out) Alena Erickson [facility] Building 1.840.114 350.1.13.10 4.2.7.2.686 [id number] [facility] 2019-05-16 15:19:14 2019-05-16 15:52:21 Nurse Visit Nurse, [facility] [place] Skyler [facility] 1.84.114 350.1.13.10 4.2.7.2.686 [id number] [facility] 2019-05-16 15:30:00 2019-05-16 15:30:00 Outpatient R ALEXANDRIA WHITMORE [facility] [id number] [facility] 2019-05-03 13:12:12 2019-05-03 14:43:58 Office Visit [facility], [facility] 1.840.114 350.1.13.10 4.2.7.2.686 [id number] [facility] 2019-05-03 00:00:00 2019-05-03 00:00:00 Orders Only Doctor Unassigned, Felt [facility] 1.84.114 350.1.13.10 4.2.7.2.686 [id number] [facility] 2019-05-03 00:00:00 2019-05-03 00:00:00 Letter (Out) Urology, Ruby [facility] Building 1.2840.114 350.1.13.10 4.2.7.2.686 [id number] [facility] 2019-03-22 14:44:34 2019-03-22 16:20:55 Office Visit Urology, Sapna sánchez [facility] 1.2840.114 350.1.13.10 4.2.7.2.686 [id number] [facility] 2018-12-01 00:00:00 2018-12-01 00:00:00 Telephone Apryl Guerrero [facility] nal Building 1.2.840.114 350.1.13.10 4.2.7.2.686 [id number] [facility] 2018-11-30 00:00:00 2018-11-30 00:00:00 Telephone Apryl Guerrero [facility] Building 1.2.840.114 350.1.13.10 4.2.7.2.686 [id number] [facility] 2018-11-12 07:59:52 2018-11-12 08:43:27 Office Visit Apryl Guerrero [facility] Building 1.2840.114 350.1.13.10 4.2.7.2.686 [id number] [facility] 2018-11-12 00:00:00 2018-11-12 00:00:00 Letter (Out) Apryl Guerrero [facility] Building 1.2.840.114 350.1.13.10 4.2.7.2.686 [id number] [facility] 2018-11-11 08:24:16 2018-11-11 08:54:22 Nurse Visit Nurse, [facility] [place] [facility] Building 1.2.840.114 350.1.13.10 4.2.7.2.686 [id number] [facility] 2018-11-11 00:00:00 2018-11-11 00:00:00 Orders Only Doctor Unassigned, Felt [facility] 1.2840.114 350.1.13.10 4.2.7.2.686 [id number] [facility] 2018-10-07 14:49:05 2018-10-07 16:35:54 Office Visit Karen Siddiqui [facility] Evelyn Cerna [facility] 1.2.840.114 350.1.13.10 4.2.7.2.686 [id number] [facility] Results Test Description Test Time Test Comments Results Result Co mments Source [facility] BHCG (QUANTITATIVE)2023-06-04 16:44:16* Test Item Value Reference Range Interpretation Comme nts BETA HCG (test code = 4659197179) 471026.00 See_Comment [Automated messa ge] The system which generated this result transmitted reference range: Non- female and male patients: <5 mIU/mL. The reference range was not used to interpret this result as normal/abnormal. HAZEL (test code = HAZEL) Gestational Age ?Range (mIU/mL) 1-10 ?Weeks ?05-82118686-37 Weeks ?05122-93216835-36 Weeks ?7875-19223069-55 Weeks ?8502-341999 Biotin has been reported to cause a negative bias, interpret results relative to patient's use of biotin. [facility] (01457)2023-06-04 16:01:29* Test Item Value Reference Range Interpretation Comme nts NA (test code = 4697289083) 134 mmol/L 135-145 L K (test code = 6040763255) 3.6 mmol/L 3.5-5.0 CL (test code = 9889590344) 106 mmol/L 98-108 CO2 TOTAL (test code = 0900544833) 20 mmol/L 23-31 L AGAP (test code = 5766589252) 8 2-16 BUN (test code = 1551749620) 7 mg/dL 7-23 GLUCOSE (test code = 2895743794) 128 mg/dL 70-110 H CREATININE (test code = 2160-0) 0.42 mg/dL 0.50-1.04 L TOTAL BILI (test code = 0211934486) 0.3 mg/dL 0.1-1.1 CALCIUM (test code = 6026834702) 9.4 mg/dL 8.6-10.6 T PROTEIN (test code = 1465204831) 6.9 g/dL 6.3-8.2 ALBUMIN (test code = 0885316097) 3.9 g/dL 3.5-5.0 ALK PHOS (test code = 6427892301) 51 U/L 34-122 ALTv (test code = 1742-6) 18 U/L 5-35 AST(SGOT) (test code = 6398754959) 20 U/L 13-40 eGFR (test code = 40411-6) 142.9 mL/min/1.73m2 CKD-EPI eGFR (2020). Assuming creatinine has been stable day-to-day for at least three months, the eGFR indicates Category G1 (>= 90 mL/min/1.73 m2) Lab Interpretation (test code = 37186-4) Abnormal [facility]20[facility] 16:01:29* Test Item Value Reference Range Interpretation Comme nts MAGNESIUM (test code = 2363117446) 1.8 mg/dL 1.7-2.4 Lab Interpretation (test cod e = 11557-7) Normal [facility] with Pckn0209-38-95 15:56:10* Test Item Value Reference Range Interpretation [...] 34.6 g/dL 31.6-35.1 RDW-SD (test code = 24600-6) 41.6 fL 39.0-49.9 RDW-CV (test code = 788-0) 13.5 % 12.0-15.5 PLT (test code = 777-3) 281 166-358 MPV (test code = 54331-6) 9.1 fL 9.5-12.9 L NRBC/100 WBC (test code = 1558599985) 0.0 0.0-10.0 NRBC x10^3 (test code = 2919057775) See_Comment [Automated messa ge] The system which generated this result transmitted reference range: 10*3/?L. The reference range was not used to interpret this result as normal/abnormal. GRAN MAT (NEUT) % (test code = 770-8) 70.1 % IMM GRAN % (test code = 9149542228) 0.50 % LYMPH % (test code = 736-9) 23.7 % MONO % (test code = 5905-5) 4.6 % EOS % (test code = 713-8) 0.9 % BASO % (test code = 706-2) 0.2 % GRAN MAT x10^3(ANC) (test code = 4301006442) 6.87 10*3/uL 1.88-7.09 IMM GRAN x10^3 (test code = 7209867360) 0.05 10*3/uL 0.00-0.06 LYMPH x10^3 (test code = 731-0) 2.32 10*3/uL 1.32-3.29 MONO x10^3 (test code = 742-7) 0.45 10*3/uL 0.33-0.92 EOS x10^3 (test code = 711-2) 0.09 10*3/uL 0.03-0.39 BASO x10^3 (test code = 704-7) 0.01-0.07 Lab Interpretation (test code = 31674-3) Abnormal [facility] Urinalysis w/o Specific Vqgzvuq1720-69-70 13:56:00* Test Item Value Reference Range Interpretation [...] = 3257) negative Negative - Negati ve [facility] Urinalysis w/o Specific Gusivcg3248-63-32 13:56:00* Test Item Value Reference Range Interpretation [...] = 3257) negative Negative - Negati ve [facility] FIRST TRIMESTER LESS THAN 14 QXVSA2933-34-31 23:10:00PELVIC ULTRASOUND Indication: Vaginal bleeding asses viability Technique: Real time carney-scale and color ultrasound images of the pelviswere obtained with a transabdominal approach. Color and spectral Dopplerwas performed. Images were saved for the patient's medical record. Comparison: February RL: 70700 Ordering Clinician: GUI ALY Technical Quality: Adequate Findings: Uterus: The uterus is anteverted in position measuring 8.4 x 6.1 x 7.4 cm. Endometrium/Contents: Fundal intrauterine with a gestational sac3.6 cm, 9 weeks 5 days. [place]-rump length 2.0 cm corresponding with 8 weeksand 5 days. heart rate 176 bpm. Yolk sac 0.3 cm. Subjectively normalfluid content of the gestational sac. No adjacent hemorrhage. Right Adnexa: Right ovary not visualized. Left Adnexa: Left ovary not visualized. Additional Findings: No free fluid is in the cul-de-sac.[facility] Urinalysis w/o Specific Rjwtlqk8080-53-85 16:46:00* Test Item Value Reference Range Interpretation [...] = 3257) n/a Negative - Negati ve [facility] Urinalysis w/o Specific Nzkxuut1792-16-90 16:46:00* Test Item Value Reference Range Interpretation [...] = 3257) n/a Negative - Negati ve [facility] Nhgr5463-28-45 20:49:00* Test Item Value Reference Range Interpretation Comme nts POCT PREG (test code = 1605) Positive On board controls acceptable with C Line (test code = 3574) Yes POCT PREG LOT # (test code = 3575) POCT PREG TEST DATE ( test code = 3576) [facility] Urinalysis w/o Specific Xqdflxy3447-89-58 20:49:00* Test Item Value Reference Range Interpretation [...] = 3257) Negative Negative - Negati ve [facility] Bldr0117-66-66 20:49:00* Test Item Value Reference Range Interpretation Comme nts POCT PREG (test code = 1605) Positive On board controls acceptable with C Line (test code = 3574) Yes POCT PREG LOT # (test code = 3575) POCT PREG TEST DATE ( test code = 3576) [facility] Urinalysis w/o Specific Fizietx2929-51-19 20:49:00* Test Item Value Reference Range Interpretation [...] = 3257) Negative Negative - Negati ve [facility] MOLECULAR ISBSC1169-93-25 16:32:49* Test Item Value Reference Range Interpretation Comme nts POCT Molecular Strep (test c ode = 29783-3) Negative Negative Lab Interpretation (test cod e = 76357-0) Normal [facility] URINALYSIS W/O SPECIFIC HZUNJQB1469-86-68 20:36:00* Test Item Value Reference Range Interpretation [...] = 3257) negative Negative - Negati ve [facility] URINALYSIS W/O SPECIFIC ELHFBZY2240-35-31 20:36:00* Test Item Value Reference Range Interpretation [...] = 3257) negative Negative - Negati ve [facility] HXBG5521-74-54 15:01:00* Test Item Value Reference Range Interpretation Comme nts POCT PREG (test code = 1605) Negative On board controls acceptable with C Line (test code = 3574) Yes POCT PREG LOT # (test code = 3575) POCT PREG TEST DATE ( test code = 3576) [facility] XXIX5049-21-14 15:01:00* Test Item Value Reference Range Interpretation Comme nts POCT PREG (test code = 1605) Negative On board controls acceptable with C Line (test code = 3574) Yes POCT PREG LOT # (test code = 3575) POCT PREG TEST DATE ( test code = 3576) [facility] NMHP5080-68-59 15:01:00* Test Item Value Reference Range Interpretation Comme nts POCT PREG (test code = 1605) Negative On board controls acceptable with C Line (test code = 3574) Yes POCT PREG LOT # (test code = 3575) POCT PREG TEST DATE ( test code = 3576) [facility]2021-[facility] 02:46:43* Test Item Value Reference Range Interpretation Comme nts ALCOHOL (test code = 5649201398) <10 mg/dL HAZEL (test code = HAZEL) <10 Nwzegmnc92-650 Toxic>100 Depression of FOOTBALL PAD REPAIRER>400 Fatalities Reported [facility] LFYU9749-41-87 02:44:00* Test Item Value Reference Range Interpretation Comme nts POCT PREG (test code = 1605) negative On board controls acceptable with C Line (test code = 3574) present POCT PREG LOT # (test code = 3575) [id number] POCT PREG TEST DATE ( test code = 3576) 2022-04-22 Lab Interpretation (test cod e = 48486-8) Normal [facility]. METABOLIC PANEL (25560)2021-01-06 02:40:21* Test Item Value Reference Range Interpretation Comme nts NA (test code = 3798583928) 139 mmol/L 135-145 K (test code = 6630746409) 3.8 mmol/L 3.5-5.0 CL (test code = 2215819956) 114 mmol/L 98-108 H CO2 TOTAL (test code = 1552121635) 20 mmol/L 23-31 L AGAP (test code = 6818647025) 2-16 BUN (test code = 3524928379) 13 mg/dL 7-23 GLUCOSE (test code = 8743245055) 86 mg/dL 70-110 CREATININE (test code = 3096957458) 0.53 mg/dL 0.50-1.04 TOTAL BILI (test code = 2836480629) 0.4 mg/dL 0.1-1.1 CALCIUM (test code = 9524051094) 7.8 mg/dL 8.6-10.6 L T PROTEIN (test code = 1589186456) 5.6 g/dL 6.3-8.2 L ALBUMIN (test code = 6286247274) 3.1 g/dL 3.5-5.0 L ALK PHOS (test code = 5899728069) 36 U/L 34-122 ALTv (test code = 1742-6) 14 U/L 5-35 AST(SGOT) (test code = 6571363923) 26 U/L 13-40 eGFR (test code = 4853642207) mL/min/1.73m2 HAZEL (test code = HAZEL) Association [...] imaging tests). Lab Interpretation (test code = 34197-2) Abnormal [facility] Lake[facility] Acid Whole Qsune0048-91-11 02:30:07* Test Item Value Reference Range Interpretation Comme nts LACTIC ACID (test code = 4734126643) 1.53 mmol/L 0.50-2.20 Lab Interpretation (test cod e = 72229-7) Normal [facility] WITH ZEIR3878-08-86 02:20:01* Test Item Value Reference Range Interpretation Comme nts WBC (test code = 6690-2) See_Comment [Automated Connect HQ] The system which generated this result transmitted reference range: 4.50 - 13.50 10*3/?L. The reference range was not used to interpret this result as normal/abnormal. RBC (test code = 789-8) See_Comment [Automated [employer]] The system which generated this result transmitted [...] g/dL 32.0-36.0 L RDW-SD (test code = 92717-7) 45.0 fL 38.5-49.0 RDW-CV (test code = 788-0) 14.8 % 11.5-14.0 H PLT (test code = 777-3) See_Comment [Automated Adzunaa ge] The system which generated this result transmitted reference range: 135 - 361 10*3/?L. The reference range was not used to interpret this result as normal/abnormal. MPV (test code = 42820-5) 10.5 fL 9.4-13.3 NRBC/100 WBC (test code = 2159153908) See_Comment [Automated LabMinds ssage] The system which generated this result transmitted reference range: 0.0 - 10.0 /100 WBCs. The reference range was not used to interpret this result as normal/abnormal. NRBC x10^3 (test code = 0184882674) <0.01 See_Comment [Automated Adzunaa ge] The system which generated this result transmitted reference range: 10*3/?L. The reference range was not used to interpret this result as normal/abnormal. GRAN MAT (NEUT) % (test code = 770-8) 45.6 % IMM GRAN % (test code = 0396141797) 0.20 % LYMPH % (test code = 736-9) 42.0 % MONO % (test code = 5905-5) 9.9 % EOS % (test code = 713-8) 2.1 % BASO % (test code = 706-2) 0.2 % GRAN MAT x10^3(ANC) (test code = 9453938053) 3.68 10*3/uL 1.50-10.30 IMM GRAN x10^3 (test code = 6982408240) <0.03 0.00-0.06 LYMPH x10^3 (test code = 731-0) 3.39 10*3/uL 0.70-7.40 MONO x10^3 (test code = 742-7) 0.80 10*3/uL 0.00-0.50 H EOS x10^3 (test code = 711-2) 0.17 10*3/uL 0.00-0.40 BASO x10^3 (test code = 704-7) <0.03 0.00-0.10 Lab Interpretation (test code = 43841-6) Abnormal [facility] RAPID STREP SCREEN FOR GROUP R5121-04-96 19:24:00* Test Item Value Reference Range Interpretation Comme nts POCT GP A STREP (test code = 72711-3) negative Negative - Negative [facility] RAPID STREP SCREEN FOR GROUP B3291-74-57 19:24:00* Test Item Value Reference Range Interpretation Comme nts POCT GP A STREP (test code = 49479-2) negative Negative - Negative [facility] GGFHHOJQCGTJPJXFJSHF9465-16-30 00:00:00* Test Item Value Reference Range Interpretation Comme nts IMP (test code = IMP) Electroencephalogram Report NAME: Romy BernsteinAGE: 19 Year(s) 6 Month(s)DATE OF EE10/12/2019PROCEDURE: ?EEG ? ? EEG#: [id number] PHYSICIAN: Dalia Escalante MDLOCATION: [facility] DIAGNOSIS: Seizure vs PNESPERTINENT MEDICATIONS: ?N/A [...] time: 44m39s Lab Interpretation (test code = 63660-1) Normal [facility] ULTRASOUND BREAST LIMITED OGZM3070-09-92 13:32:53HISTORY: 2 palpable masses in the left [...] with the patient and hermother.ACR classification: Category II.[facility] URINALYSIS W/O SPECIFIC GRAVITY 2019-08-04 19:35:00* Test [...] = 3257) 4+ Negative - Negati ve [facility] URINALYSIS W/O SPECIFIC ACPFBLM7932-00-28 19:35:00* Test Item Value Reference Range Interpretation [...] = 3257) 4+ Negative - Negati ve [facility] LDUP9137-38-05 18:57:00* Test Item Value Reference Range Interpretation Comme nts POCT PREG (test code = 1605) Negative On board controls acceptable with C Line (test code = 3574) Yes POCT PREG LOT # (test code = 3575) POCT PREG TEST DATE ( test code = 3576) [facility] HFNA6593-97-85 18:57:00* Test Item Value Reference Range Interpretation Comme nts POCT PREG (test code = 1605) Negative On board controls acceptable with C Line (test code = 3574) Yes POCT PREG LOT # (test code = 3575) POCT PREG TEST DATE ( test code = 3576) [facility] LAVKNUM0945-30-86 22:13:00* Test Item Value Reference Range Interpretation Comme nts URINE CULTURE (test code = 630-4) > 100,000 CFU/mL mixed aerobic organisms - suggests endogenous microbial contamination [facility] YRDBBZZ3258-83-68 22:13:00* Test Item Value Reference Range Interpretation Comme nts URINE CULTURE (test code = 630-4) > 100,000 CFU/mL mixed aerobic organisms - suggests endogenous microbial contamination [facility] Notes Date/Time Note Provider Source 2023-07-09 09:10:28 lAfv63fUN9GYCS/MCg0azEaNEfxqDe7VkFl4oisl yV MgOmX0wbYM4tfo1m02cEto5582-20-70A35:10:28F ormatting of this note might be different from the original.Received FOB [facility] results via fax. Stamped and will be scanned/uploaded into pt's chart.ALENA WELLS RN 07/09/2023 9:10 AM 68296-6Xlaotvtch encounter YjckIW6043-23-79W16:11:33Telephone encounter NoteTXT1.2.840.663328.1.13.104.2.7.2.84560 9|[id number] for patient ipyl34043-0EbjpJYBBUPHSCMRNkrxraznd C-CDA narrative [id number] Wells RN[address] DfppGkbhwlcuwNabjisjjmAWYT1081516601KLBOMC FLQGPOUNBDETVZIH2243-38-52B91:11:331.2.840 .602741.1.72.3.15|1.2.840.466055.1.13.104. 2.7.2.727879_[id number] Alena Wells [facility] 2023-07-06 11:00:00 HPnLLcZOoogBrJyfYiDvyBwOGPULzpQ7vihq71b5 72 KNuyrGjKBIf76oTufqnp295224-28-58S67:00:00F ormatting of this note might be different from the original.Age: 23 year oldGA: 31s2bLobjnur of seizure- patient saw neurology on 06/15/23.- Last episode was about 2 weeks ago- Currently on Keppra 750 mg BID- has EEG scheduled for 07/16/23Low back pain/pelvic pain- Advise maternity belt, rest prn, tylenol prnHistory of depression-Was diagnosed at age 16. States that she was on medication until age 17. Saw a counselor/therapist until age 18.-EPDS 2 today. Denies SI/HI.-Will continue to monitorNausea/aoabwgzm-Lensmk-Ceilnhrae avoid triggers-Unisom/vitamin B6/Reglan as neededHSV I IgG positive- + hx of oral herpes. Denies hx of genital herpes- Prodromal symptoms/lesions discussed- Suppression at 35-36 wks unless clinically indicated otherwisePanorama low risk femaleHorizon carrier for medium chain acyl-coa dehydrogenase deficiency. FOB got tested, awaiting resultMsAFP orderedAnatomy scan orderedNOB labs wnl except Rubella NIFollow-up in 4 weeks for visit with NPFollow-up in 8 wks for PN with LamI spent a total of 30 minutes on the day of the visit.The time spent for patient care includes:PreCharting (eg, review of tests, notes, etc.), Obtaining and/or reviewing separately obtained history (Care Everywhere or paper records), Performing a medically appropriate examination and/or evaluation, Counseling and educating the patient/family/caregiver, Ordering medications, tests, or procedures, Ordering referrals and/or communicating with other health care aid (when not separately reported), and Documenting clinical information in the electronic or other health record. 23500-7Itsaajgd lepbIO9823-56-04A49:49:38Progress noteTXT1.2.840.389072.1.13.104.2.7.2.62887 9|[id number] for patient wpiz28919-5GioxYLAJLJDXESQGueroewof C-CDA narrative textUTMBUTMB - [address] QjrgMjjnfoieeVpfmwieeaWDKW0109601444APODSG ZEZODJMIWIYPRCBC7484-70-29X21:49:381.2.840 .578441.1.72.3.15|1.2.840.556904.1.13.104. 2.7.2.727879_[id number] [facility] 2023-06-24 12:58:53 vI70+wSTeNbwVZe57oEvEYPuIBzhvZVvkTZ7Kj6R qH 34TOisFy0CNm9u6xAsVxa12019-85-87K78:58:53F ormatting of this note might be different from the original.Name and verified. FOB in system. Appt made for lab tomorrow.ALENA WELLS RN 06/24/2023 12:59 PM 61615-3Uqsuvuxqu encounter VqtaZL0202-51-67P38:59:18Telephone encounter NoteTXT1.2.840.657417.1.13.104.2.7.2.40971 9|[id number] for patient qocf66827-4KwrnAYTIQYVJYOHJguzkqdas C-CDA narrative [id number] Wells RN[address] OpuvJsmlalrktGmpvpglsxVOOW9215540416ZTHYMM UVIQXLCFABGRFTZM4851-23-45G38:59:181.2.840 .249203.1.72.3.15|1.2.840.134391.1.13.104. 2.7.2.727879_[id number] Alena Wells RN [facility] 2023-06-24 12:18:39 D0wVl7UIJ53HugHIdzmTcnlDAQSf5coBXyfxqUvY Bi u8w2ivsdvwCqqPzICqkaL51295-09-45G44:18:39F ormatting of this note might be different from the original.Patient says a denture laboratory technician was suppose to come out today to her home to draw labs on boyfriend and did not show up they want to know if he can just come into one of our lab clinics today. 39936-1Ampbitlay encounter XlpvMS1161-47-48S33:20:01Telephone encounter NoteTXT1.2.840.810865.1.13.104.2.7.2.72618 9|[id number] for patient hbdm58050-7JrvtUYQYAQHAOUAAoiwwkypb C-CDA narrative hgyk840272502Ocuhv Giovanni[address] IsugZhzlrdcddPsmcmimvfHHIB1376812189HVQAWL NKDEQGMEJXEVEGCW9313-54-25M46:20:011.2.840 .076852.1.72.3.15|1.2.840.890687.1.13.104. 2.7.2.727879_[id number] Dana Giovanni [facility] 2023-06-17 10:36:21 T/wgM+5hT+CjNJ98bTF0+3GLCT3iBPWe1XppEXS3 sP arrWh0LPoZnXs6Z8PSvJIY4663-95-74W70:36:21F ormatting of this note might be different from the original.Spoke with patient. Patient gave permission for [employer] to lemon picker her gender results.Patient advised of horizon results showing:Carrier for medium chain acyl-coA Dehydrogenase deficiencyPatient advised the next step is to have FOB tested. Patient gave FOB information to send order to [employer] results sent via [employer] per patient request.No other questions or concerns at this time.Shelly Conteh RN 06/17/2023 10:38 AM 22491-8Aityqosuc encounter TfrjFW0513-80-83J77:38:11Telephone encounter NoteTXT1.2.840.274972.1.13.104.2.7.2.92086 9|[id number] for patient xsza14708-4QmktBGCSXINIJTPDgyjuwezz C-CDA narrative [id number] [place] [address] ZnnwShhjotuouRzinhgttmMHOM8509941430RPJBLH VROCDNVUVFLHHBFH5480-15-79S30:38:111.2.840 .284525.1.72.3.15|1.2.840.061586.1.13.104. 2.7.2.727879_[id number] Shelly Conteh [facility] 2023-06-17 09:31:05 5JLHv2rBl1qqic2GZ2jNK975nJNDgG9RAZwspm6j 7w qS10/xW06p4sbo+PtlO1Cy6976-74-48P52:31:05F ormatting of this note might be different from the original.Romy Bernstein is a 23 year old femalePt states the test results for the baby are in and she does not want to know the gender. Pts best friend Eliu Guzman will be picking up the letter stating the gender because she will be having a gender reveal.eliu guzman [phone] signed by Zuly Gillespie at 06/17/2023 9:33 AM FWG52683-3Sooxoxmwk encounter SegeIM7062-11-95A95:33:31Telephone encounter NoteTXT1.2.840.865979.1.13.104.2.7.2.05310 9|[id number] for patient klgt17431-5VlzuHXSFJWSFWXURlzgmiyvz C-CDA narrative bhwz844087805Rxgaeug A DiM[address] VeeiAemrxkdbuFpfaismfyUDMX5734923912HCAXLX NCAHKSSFKZEJZYQI2700-02-13J34:33:311.2.840 .365040.1.72.3.15|1.2.840.385555.1.13.104. 2.7.2.727879_[id number] Zuly Gillespie [facility] 2023-06-05 08:15:00 gDLtYifEVvZVAaFu2n1cOSDu/URiNzoiTrTfiYPP jJ K8FJVLsCYBj86zDmQ38eNi7097-31-39X70:15:00F ormatting of this note is different from the original.Images from the original note were not included.Venipuncture collection performed by clean technique on the left anticubitus. Total of 1 attempts were made. Slight pressure and a bandage/dressing were applied to the site(s). The patient experienced no complications. The following specimens were processed according to instructions and sent to [facility] laboratories per lab order on 06/05/2023:LT BLUESST 3RED 1LAV 3PPTDK GREEN (LiHep)DK GREEN (SodH)GRAYDK BLUE (K2)DK BLUE (S)ACDBlood CultureNIPT/NTDNatera only, dr whitmore will advise pt when to do 1hr gtt. will do urine next visit 04208-6Bssvr XhdzIB3470-94-52A45:44:39Nurse NoteTXT1.2.840.389702.1.13.104.2.7.2.15822 9|[id number] for patient fuwe06296-1Deghy NoteLNNARRATIVEFormatted C-CDA narrative text[address] RggjRurnabxfbAnooozsvcJJMZ1378212573NLIJWB DYONVQJNSNQUMTIN8045-50-09R84:44:391.2.840 .056125.1.72.3.15|1.2.840.941441.1.13.104. 2.7.2.727879_[id number] [facility] 2023-06-04 14:07:28 mC9HPg1s7tgL1aYKgbuk6cIXVpglsW+GQvkQrzC1 v1 Wj0EzRv+FBk++wfv2/K6bk3434-52-21H47:07:28F ormatting of this note might be different from the original.PT D/C home. GCS15, VS stable. Given D/C paperwork. Pt ambulatory at time of discharge. Pt educated on med usage, follow up care, s/s worsening condition, need for hydration. Pt verbalized understanding.Pt ambulated from ED in NAD with her significant other 59488-9Whxrrjlru department JshdVX0865-91-48W71:07:46[facility] NoteTXT1.2.840.006674.1.13.104.2.7.2.65694 9|[id number] for patient xaih71061-7DnadHIZPNPQBGJVBsthflzzn C-CDA narrative vcxz549498070VrfmPaige SIMMONS[address] [id number] XMZMFJZTZJERDRTE0579-86-91G75:07:461.2.840 .409375.1.72.3.15|1.2.840.965141.1.13.104. 2.7.2.727879_[id number] Paige Salinas RN [facility] 2023-06-04 11:22:17 YVRLcwj3qmPjVH8FG5M8GrAhmeA5AYmoXqkCDcf8 u7 eFEwL+By1QXidh+47hsLRM1634-34-59M55:22:17F ormatting of this note might be different from the original.[facility] [address]-[address] JtmjFO8679-99-22L12:22:31[facility] NoteTXT1.2.840.744164.1.13.104.2.7.2.91420 9|[id number] for patient yjiz66904-4EpxhMOBVDEODQQUGklpzuqyb C-CDA narrative text[address] [id number] SPECIALIZED HOSPITALRJJXSRCOGBRWTMEJ1205-26-48Y72:22:311.2.840 .635495.1.72.3.15|1.2.840.457404.1.13.104. 2.7.2.727879_[id number] [facility] 2023-06-04 11:18:34 xztNXdnd7d8LuzlB0jiZpvvSeMVEvcqJGxzwVi32 t/ KzdjPlvFisfTW5ll1gVM/e9679-02-50B23:18:34F ormatting of this note might be different from the original.Pt up to restroom by w/c with Significant other assisting in restroom. 46258-9Zvuiyjkpr department WlxoOC3864-00-61A14:18:57[facility] NoteTXT1.2.840.943069.1.13.104.2.7.2.51601 9|[id number] for patient vcam34540-2IhsnMUHSPJJLRHEYpyohkako C-CDA narrative [address] Gv[id number] THDQHMSERVZKGGJS1590-19-54G40:18:571.2.840 .804296.1.72.3.15|1.2.840.496381.1.13.104. 2.7.2.727879_[id number] [facility] 2023-06-04 10:18:24 HIS9GtT/LS2yBDv6xWnB3HiqpY5/NxH1OBBf5rCT CB SXicaci5BQSP77mqzNRAMx9275-02-36P75:18:24F ormatting of this note might be different from the original.Pt was retrieved from [facility] lobby as a rapid response. Pt is ; 12w1d gestation at the [facility] for a 1hour glucose. Staff reports she drank the glucose at 0939. [facility]; at bedside. Per pt's mother via phone pat does not take any seizure medications due to not having insurance. Male visitor at bedside. 50004-6Rrfbpzrfg department Triage ncbzLQ5428-02-95N17:46:38[facility] Triage noteTXT1.2.840.706597.1.13.104.2.7.2.97048 9|[id number] for patient bwrx99356-4Cogskxhmk department NoteLNNARRATIVEFormatted C-CDA narrative [id number] L Barker RN[address] Xp[id number] YJKTLPLCWOIBWCLA7655-96-52L64:46:381.2.840 .575846.1.72.3.15|1.2.840.385620.1.13.104. 2.7.2.727879_[id number] Vonda Diaz RN [facility] 2023-06-04 10:16:00 qnFJup2/mkC8rtI17eWRziQIzxCzr4yslXa8ynl9 gF m1++ZF3tH93gQ2o9iO4q961272-81-36K85:16:00F ormatting of this note is different from the original.[facility] Emergency Department NotePatient Name: Romy BernsteinDate of : 2000 23 year old femaleTreatment Room: [facility]/NQ40Jqzbhcg Record Number: [id number] Care Physician: PATIENT DOES NOT HAVE A PCPPatient Escorted by: Self [9]Mode of Arrival: Personal means [1]EMS Treatment Prior to ED Arrival:HEALTHCARE CONSULTANT treatment: NoneTravel and Exposure Screening:SymptomsDoes patient have any of these symptoms?: (not recorded)Exposure ScreeningHas patient had contact with someone with a communicable disease in the last month?: (not recorded)Diseases exposed to:: (not recorded)Is Patient ?: (not recorded)Exposure Date: (not recorded)Chief Complaint:Chief ComplaintPatient presents withSeizuresHistory of Present Illness:Pt was retrieved from [facility] lobby as a rapid response after suffering a seizure. Pt is ; 12w1d gestation with know history of seizures (Not compliant with medication due to lack of insurance) at [facility] for a 1hour glucose tolerance test.Seizure was tonic clonic without sphincter relaxation, and follow ed by post ictal status.History provided by: Nursing Staf.instructional supervisor used: NoSeizuresSeizure activity on arrival: noSeizure type: [...] Positive for seizures.Patient Post IctalPhysical Exam:ED Triage VitalsWeight 06/04/23 1020 88.5 kg (195 lb)Actual or [...] <0.03 0.01 - 0.07 10*3/uLCOMP. METABOLIC PANEL (56112) - AbnormalNA 134 (*) 135 - 145 [...] U/LAST(SGOT) 20 13 - 40 U/LeGFR 142.9 mL/min/1.91w6RTOUXMULFZ - AbnormalAPPEARANCE Clear ClearCOLOR Straw (*) YellowPH [...] Placed This EncounterProceduresCbc with DiffComp. Metabolic Panel (56183)MagnesiumUrinalysisTOTAL BHCG (QUANTITATIVE)Consult/Referral NeurologyOrders Placed This EncounterMedicationsondansetron (ZOFRAN (PF)) injection 4 mgfamotidine (PEPCID (PF)) injection 20 mglevETIRAcetam (KEPPRA) in NACL (ISO-OS) 1,000 mg/100 mL RTUFirst Provider Eval:ED EventsDate/Time Event User Guribduk48/14/24 1023 Medical Screening Begins JESSE LEMOS MD [...] on fileFollow-up:Electronically signed by:Jesse Lemos MD06/04/23 1356 24300-5Qnfwbvegs Emergency department SerjSE7501-26-76B85:56:08Physician Emergency department NoteTXT1.2.840.414366.1.13.104.2.7.2.94119 9|[id number] for patient erep94863-7Owzwxopnv department NoteLNNARRATIVEFormatted C-CDA narrative text[id number] NFQAPESXBTYVEDCI1326-07-74F02:56:081.2.840 .467462.1.72.3.15|1.2.840.512448.1.13.104. 2.7.2.727879_[id number] [facility] 2023-06-04 10:00:00 yrR36rh2Gst2pj9/FW3R6Pog5OX3rBaewT7Gf6kj uz PyTWpF5I6hqmPEsoindnu15419-45-63J16:00:00F ormatting of this note might be different from the original.Loaded pt w 50gm fruit punch glucola, no issues.Draw time: 10:40 58034-9Mktzd HlluDA3376-42-05C72:41:10Nurse NoteTXT1.2.840.129186.1.13.104.2.7.2.93781 9|[id number] for patient kmzf41680-7Kznyi NoteLNNARRATIVEFormatted C-CDA narrative [id number] [id number] BBMEJBSSJFASYJBI1743-78-95N22:41:101.2.840 .115085.1.72.3.15|1.2.840.105353.1.13.104. 2.7.2.727879_[id number] Nadine Davis [facility] 2023-06-04 10:00:00 j9NFkLAl+3Iy5vqQuWZwoxTQAaGq0VD50kF11OG/ /3 DIbJ9q4MmuzMyYo0VbStrZ8028-20-43H46:00:00F ormatting of this note might be different from the original.Pt taken to er for seizures [facility]. 61806-5Jlnpu QhmoCV1902-09-87I90:12:40Nurse NoteTXT1.2.840.520086.1.13.104.2.7.2.07398 9|[id number] for patient nvid91536-3Rjhgm NoteLNNARRATIVEFormatted C-CDA narrative text[address] JumbWvynbfaeiGupjhnppyPVYI3491772211UCTJCV TCICQMHMWEOFUOYM1149-81-57I76:12:401.2.840 .812258.1.72.3.15|1.2.840.937194.1.13.104. 2.7.2.727879_[id number] [facility] 2023-06-04 09:00:00 3QqrIndtYLg1WdBZHm26h6csbCbf8B4dDCLWUOwI wA QTSN+hcSOJVeFyyghnZTm42368-31-23B34:00:00F ormatting of this note might be different from the original.Age: 23 year oldGA: 46c3rTdwhdrg of seizure-Patient states that she was seen at [facility] ER yesterday due to seizure. States that [...] 16.-EPDS 5 today. Denies SI/HI.-Will continue to monitorNausea/stfnipdc-Zyvcrt-Gddhzmjbh avoid triggers-Unisom/vitamin B6/Reglan as neededPanorama/Horizon kits given today with new OB labsPap smear with GC/CT/trichomoniasis obtained todayFollow-up in 4 weeks for visit 81007-4Qmbgvlyo cmbgQW6586-81-47X60:54:10Progress noteTXT1.2.840.231764.1.13.104.2.7.2.66332 9|[id number] for patient yzft76915-4OdtwQQTAGGNTSULMrhzptauq C-CDA narrative text[id number] DHXNDEILORBDQUCC8759-39-68F16:54:101.2.840 .594749.1.72.3.15|1.2.840.621240.1.13.104. 2.7.2.727879_[id number] [facility] 2023-06-04 09:00:00 9EdsuofEtubwrCk4qhl6v1Mh8Q3ptTw7Kwk8et73 TP RWgJ7U3kJMwMBKC5P8HIPs1266-13-09C74:00:00A ddended by: SHELLY CONTEH on: 06/05/2023 08:32 AMModules accepted: Orders 98318-9Htoprvdk GuloduwdQB0590-20-18I12:32:13Addendum DocumentTXT1.2.840.802337.1.13.104.2.7.2.7 72779|[id number] for patient llki46202-3JttcYQYOMHVBUCTAiebcktjs C-CDA narrative [id number] Collins RNUTMB[id number] HLHAJOKMBMZZVHRS7921-04-62S86:32:131.2.840 .420795.1.72.3.15|1.2.840.858899.1.13.104. 2.7.2.727879_[id number] Shelly Conteh RN [facility] 2023-05-16 17:24:32 JXtE8GwLe4gFyUEmBKdiICouDBaGujyl3RbLLIaS XM q6OPUxjNgeZ6GbgQcRhWt30460-58-93E21:24:32F ormatting of this note might be different from the original.PT D/C home. GCS15, VS stable. Given D/C paperwork. Pt ambulatory at time of discharge. Pt educated on med usage, follow up care, s/s worsening condition, need for hydration. Pt verbalized understanding. 71119-1Tqtsjfgbr department UuhmCQ7410-72-05S70:24:37Emergency department NoteTXT1.2.840.252081.1.13.104.2.7.2.51322 9|[id number] for patient drrk14145-3YxzyHEFMNMGBDRABbhutnhgp C-CDA narrative rzeb480338408Xfyk E Linkes RN[id number] NNNBZJWDBUFXSHFR0013-84-34A42:24:371.2.840 .381960.1.72.3.15|1.2.840.297174.1.13.104. 2.7.2.727879_[id number] Paige Salinas RN [facility] 2023-05-16 15:53:10 szDR1DX2xNimIE6njFPHTFo2+PMXIU2kS8QOiRlN Z8 0rhJOgJB1ZpDJ6BwgNyfoE9781-83-01V20:53:10F ormatting of this note might be different from the original.Patient states: "It started early this morning. I work for [employer] so I do a lot of heavy lifting so I dont' know if that's what's causing it. It's light and then after a few times of going to the restroom it gets darker then it stops. This is my first "G 1, P 0 , A 0Pmhx: pseudo seizures.Reports vaginal spotting. 42132-9Nakrgnvhi department Triage uyxdSS0861-47-22V40:54:22Emergency department Triage noteTXT1.2.840.030504.1.13.104.2.7.2.62912 9|[id number] for patient sohw71941-7Vbkqtcpxs department NoteLNNARRATIVEFormatted C-CDA narrative [id number] M Cruz RNUT[address] WgsnHqximicjyWggdhtctpVKUQ3877568444OULHFW DECDXTUOZWMQRFQX5467-40-55Q08:54:221.2.840 .600402.1.72.3.15|1.2.840.952079.1.13.104. 2.7.2.727879_[id number] Claudia Ocasio RN [facility] 2023-05-07 10:00:00 W5f73mCX8BQiN/LPmnt5AZHYWm7GzEty+TSChK/w iV BkqeoSe5cuW8NeZt67xFOk5652-82-44C26:00:00F ormatting of this note might be different from the original.Age: 23 year oldGA: 8w1d by Patient's last menstrual period was 03/11/2023.History of seizure-Patient states that she was seen at [facility] ER yesterday due to seizure. States that she has not been on seizure medication for more than a year. 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 Expectations for weight gain this include 11-20 [...] COVID pandemic)Follow-up in 4 weeks for visit 41651-3Xbybwfzp hleqBF9834-12-84V29:25:47Progress noteTXT1.2.840.056861.1.13.104.2.7.2.25018 9|[id number] for patient oavn83951-8CtodMSOCFOYTGBOAutizhfhk C-CDA narrative textUTMBNORTHERN NAVAJO MEDICAL CENTER - [address] KjhwIhwihtxjePsblrlaqzCGGS3321001388XDOBTB HFISTIKYMUFZSTFJ1812-68-79E56:25:471.2.840 .515917.1.72.3.15|1.2.840.679437.1.13.104. 2.7.2.727879_[id number] [facility] 2023-05-05 08:07:30 PRyzmhFeLoHmwvocqE3MRfFsUUGbCJIf8hZtE5fI 2l VLYDT7maRTaK9BZFrLmf766982-32-32X20:07:30F ormatting of this note might be different from the original.Pt returned call. Pt notified of payment amount. 25151-2Onwuqbyiq encounter WgfxYK3459-06-88Z71:08:00Telephone encounter NoteTXT1.2.840.247717.1.13.104.2.7.2.77938 9|[id number] for patient wwlr74962-9GdtnDNBIOSACAEPBdthjtoby C-CDA narrative [id number] R [address] Lgyd[id number] OEUNYETXTDLBWNBQ0762-33-07P90:08:001.2.840 .616609.1.72.3.15|1.2.840.841838.1.13.104. 2.7.2.727879_[id number] [facility] 14:56:55 BEk0XHBoJwiSdxi19LJMfOphhIu4Y9hdcSXG90TY 9s KucnQwV9hVWNLLCo39uI6l9471-57-08E18:56:55F ormatting of this note might be different from the original.LVM to review estimate with pt. MyChart estimate letter also sent. 94903-6Wrqhzzghr encounter TfoxMH0760-26-92L84:00:04Telephone encounter NoteTXT1.2.840.534441.1.13.104.2.7.2.96986 9|[id number] for patient fgls90186-1CegoKSAUABUCDOIEqsmlpnhi C-CDA narrative textUT75 [address] [id number] TLXWUPHJNSZNJSED0660-31-56H14:00:041.2.840 .830187.1.72.3.15|1.2.840.751460.1.13.104. 2.7.2.727879_[id number] [facility] 2023-05-04 14:15:02 JlrAyDL6GiUcCp2erpI1LmHtX2uszxcY24AIzTvt U2 cknALrwyfJugbbKPNEYUUm4255-57-26P42:15:02F ormatting of this note is different from the original.Pt would like to know the OOP cost due for her upcoming apt.Please advise.Future AppointmentsDate Time Provider Department Center05/07/2023 10:00 AM [facility] Whit[facility] AngletoPh: [phone] ([facility] [place]) 84432-0Gpfnyzieh encounter WhnwPJ0337-10-48Z33:17:34Telephone encounter NoteTXT1.2.840.265850.1.13.104.2.7.2.19745 9|[id number] for patient yisf06171-8BuztUHXFFPEYPOMAulsngdul C-CDA narrative wljb729573147Tfws HernandezUT75 [address] [id number] GYBXZKJKHNYHSNLU7943-91-78Y98:17:341.2.840 .754209.1.72.3.15|1.2.840.125596.1.13.104. 2.7.2.727879_[id number] Nazario Moore [facility] 2022-12-01 10:19:49 Mz0VbGMqSzwYzyp9+Ed7BIJ09Ikgw8XtsuQssSSe PU 9QR+06QoqZcnrTKVAbMbHl0475-12-15T68:19:49F ormatting of this note might be different from the original.I contacted Ms. Bernstein to let her know I received her hereditary cancer testing result. 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 CHEK2 carriers are at an increased risk [...] CHEK2 pathogenic (low penetrance) variant, specifically c.470T>C (p.Ivn162Fpu). This result is associated with an increased risk for breast and colon cancer with specific management recommendations for these risks, although the specific risks associated with this variant are lower in comparison to other CHEK2 pathogenic variants. 2) A follow-up appointment will be scheduled for tomorrow to discuss the implications of this result for her and her family members 08343-2Nlfsmxfol encounter CttxRS8748-86-61D94:38:29Telephone encounter NoteTXT1.2.840.859877.1.13.104.2.7.2.42330 9|[id number] for patient qkdv78613-0LjhlFVWGRDPOPF[id number] VREPGEWGPITTNPRY1174-91-19C61:38:291.2.840 .882786.1.72.3.15|1.2.840.881905.1.13.104. 2.7.2.727879_[id number] [facility] 2022-11-26 11:50:52 pW9oEx446nXZBecCyE+u81X0MwkQEdIC57piyJ1q 5I EkFg0CQ1qlSarDBYXpsCGW3593-69-52X40:50:52F ormatting of this note might be different from the original.[facility] lab results scanned to chart. 84383-3Grezssvxf encounter LxcsTQ6158-51-39N00:51:15Telephone encounter NoteTXT1.2.840.071479.1.13.104.2.7.2.07569 9|[id number] for patient nooa45181-2CtanCN279520911Tfuoaqk J Gomez RN[id number] UULLMZBMNAESDBCP9579-16-07B16:51:151.2.840 .999096.1.72.3.15|1.2.840.464738.1.13.104. 2.7.2.727879_[id number] Corrine Llanos RN [facility] 2022-11-18 10:15:00 XNA77qlZeif6VcXvjoMCgBpAo1MDGnnKnmBH51B/ 51 HjxT/4xMDr80eppz14OZe/4982-25-21W21:15:00F ormatting of this note is different from [...] DK BLUE (S) ACD Blood Culture NIPT/NTD 38150-0Zjtkz WzzwGS0849-23-61L23:32:54Nurse NoteTXT1.2.840.496592.1.13.104.2.7.2.19819 9|[id number] for patient iakf11878-1Vncwg NoteLNUT[address] BklcTiudwecxlExppepzgfBUNY9334397005LMBLLB CQWTPOJNQBNIVPTY2678-75-76M62:32:541.2.840 .129663.1.72.3.15|1.2.840.178342.1.13.104. 2.7.2.727879_[id number] [facility]
[2023-07-15 16:58] LABS: Specific Gravity 1.022 (1.005-1.030); Urine Bacteria <20 /HPF (<20); Urine Bilirubin NEGATIVE (Negative); Urine Blood Negative (Negative); Urine Clarity Turbid (Clear); Urine Color Light-Yellow (Yellow); Urine Culture Reflex Order NOT NEEDED; Urine Glucose NEGATIVE (Negative); Urine Ketones NEGATIVE (Negative); Urine Microscopic Reflex YN ORDER UMIC; Urine Mucus Slight /HPF (None Seen); Urine Nitrite NEGATIVE (Negative); Urine Protein NEGATIVE (Negative); Urine RBC <5 /HPF (None Seen); Urine Urobilinogen Normal (Normal); Urine WBC <5 /HPF (<5)
--- NOTE | 2023-07-15 17:13 | ER ---
Nurse's Notes [facility] Name: Romy Bernstein Age: 23 yrs Sex: Female : 2000 Arrival Date: 07/15/2023 Time: 15:51 Bed 10 Private MD: Diagnosis: Low back pain;Sciatica Presentation: 07/14 16:01 Chief complaint: Patient states: R hip area feels cold while laying down for the past ll1 3-4 days. Both legs get numb off/on for 3 days. +leg pain. G1, P0. Coronavirus screen: Client denies travel out of the [place] in the last 14 days. At this time, the client does not indicate any symptoms associated with coronavirus-19. Ebola Screen: Patient denies travel to an Ebola-affected area in the 21 days before illness onset. Initial Sepsis Screen: Does the patient meet any 2 criteria? No. Patient's initial sepsis screen is negative. Does the patient have a suspected source of infection? No. Patient's initial sepsis screen is negative. Risk Assessment: Do you want to hurt yourself or someone else? Patient reports no desire to harm self or others. Onset of symptoms was July 11, 2023. 16:01 Method Of Arrival: Wheelchair ll1 16:01 Acuity: SERA 4 ll1 Triage Assessment: 16:03 General: Appears uncomfortable, Behavior is calm, cooperative, appropriate for age. ll1 Pain: Complains of pain in right leg and left leg Pain currently is 8 out of 10 on a pain scale. Quality of pain is described as aching. Musculoskeletal: Circulation, motion, and sensation intact. Capillary refill < 3 seconds, Reports numbness in right leg and left leg pain in right leg and left leg. Historical: - Allergies: 16:02 Keppra; ll1 16:02 Vesicare; ll1 - PMHx: 16:02 Anxiety; bladder problems; Seizures; ll1 - PSHx: 16:02 Tonsillectomy; ll1 - Immunization history:: Adult Immunizations up to date. - Infectious Disease History:: Denies. - Social history:: Smoking status: Patient denies any tobacco usage or history of. Screenin:20 [facility] ED Fall Risk Assessment (Adult) History of falling in the last 3 months, mb9 including since admission No falls in past 3 months (0 pts) Confusion or Disorientation No (0 pts) Intoxicated or Sedated No (0 pts) Impaired Gait No (0 pts) Mobility Assist Device Used No (0 pt) Altered Elimination No (0 pt) Score/Fall Risk Level 0 - 2 = Low Risk Oriented to surroundings, Maintained a safe environment, Educated pt \T\ family on fall prevention, incl call for assistance when getting out of bed. Abuse screen: Denies threats or abuse. Nutritional screening: No deficits noted. Tuberculosis screening: No symptoms or risk factors identified. Assessment: 16:19 General: Appears in no apparent distress. Behavior is calm, cooperative. Pain: Denies mb9 pain. Neuro: Alexis Agitation-Sedation Scale (RASS): 0 - Alert and Calm Level of Consciousness is awake, alert, obeys commands, Oriented to person, place, time, situation, Appropriate for age Reports numbness in right leg and left leg since a few days ago. Cardiovascular: Patient's skin is warm and dry. Respiratory: Airway is patent Respiratory effort is even, unlabored, Respiratory pattern is regular, symmetrical. GI: No signs and/or symptoms were reported involving the gastrointestinal system. : No signs and/or symptoms were reported regarding the genitourinary system. : Denies burning with urination. : EENT: No signs and/or symptoms were reported regarding the EENT system. Derm: Skin is pink, warm \T\ dry. Musculoskeletal: Range of motion: intact in all extremities. 17:18 Reassessment: No changes from previously documented assessment. Patient and/or family mb9 updated on plan of care and expected duration. Pain level reassessed. Patient is alert, oriented x 3, equal unlabored respirations, skin warm/dry/pink. Vital Signs: 16:01 BP 127 / 91; Pulse 89; Resp 18; Temp 98.4; Pulse Ox 99% ; Weight 88 kg; Height 5 ft. 3 ll1 in. ; Pain 8/10; 17:19 Pulse 82; Resp 18; Pulse Ox 100% on R/A; mb9 16:01 Body Mass Index 34.37 (88.00 kg, 160.02 cm) ll1 16:01 Pain Scale: Adult ll1 Vitals: 16:18 Heart Tones 152. mb9 ED Course: 15:53 Patient arrived in ED. mr 15:53 [facility]rostro [facility]-C [facility]. kb 15:54 Juancarlos Frey MD is Attending Physician. kb 16:02 Triage completed. ll1 16:03 Arm band placed on. ll1 16:06 Florecita Ruano, RN is Primary Nurse. mb9 16:09 Patient placed in an exam room, on a stretcher. ll1 16:17 No provider procedures requiring assistance completed. mb9 16:20 Bed in low position. Call light in reach. Side rails up X 1. Provided Education on: mb9 press call light if needing anything. Client placed on continuous cardiac and pulse oximetry monitoring. NIBP monitoring applied. Door closed. Noise minimized. Warm blanket given. 16:46 Urinalysis w/ reflexes Sent. mb9 16:46 Urine collected: clean catch specimen, clear. mb9 17:18 Patient did not have IV access during this emergency room visit. mb9 Administered Medications: No medications were administered Medication: 16:20 VIS not applicable for this client. mb9 Outcome: 17:12 Discharge ordered by MD. kb 17:19 Discharged to home ambulatory, mb9 17:19 Condition: stable 17:19 Discharge instructions given to patient, Instructed on discharge instructions, follow up and referral plans. Demonstrated understanding of instructions, follow-up care, 17:19 Patient left the ED. mb9 Signatures: Lety Buenrostro FNP-C FISHERY BIOLOGIST-Ckb Florecita Man, Reg Reg mr JackMayi RN RN ll1 Florecita Ruano, RN RN mb9 Corrections: (The following items were deleted from the chart) 16:04 16:01 Chief complaint: Patient states: R hip area feels cold while laying down for the ll1 past 3-4 days. Both legs get numb off/on for 3 days. +leg pain ll1 16:04 16:01 Acuity: SERA 3 ll1 ll1 16:09 16:01 BP 127 / 91; Pulse 89bpm; Resp 18bpm; Pulse Ox 99%; 88 kg; Height 5 ft. 3 in.; ll1 BMI: 34.3; Pain 8/10, Adult; ll1
--- NOTE | 2023-07-15 17:13 | EDPHYS ---
Physician Documentation [facility] Name: Romy Bernstein Age: 23 yrs Sex: Female : 2000 Arrival Date: 07/15/2023 Time: 15:51 Bed 10 Private MD: ED Physician Juancarlos Frey Historical: - Allergies: 07/14 16:02 Keppra; ll1 16:02 Vesicare; ll1 - PMHx: 16:02 Anxiety; bladder problems; Seizures; ll1 - PSHx: 16:02 Tonsillectomy; ll1 - Immunization history:: Adult Immunizations up to date. - Infectious Disease History:: Denies. - Social history:: Smoking status: Patient denies any tobacco usage or history of. Vital Signs: 16:01 BP 127 / 91; Pulse 89; Resp 18; Temp 98.4; Pulse Ox 99% ; Weight 88 kg; Height 5 ft. 3 ll1 in. ; Pain 8/10; 17:19 Pulse 82; Resp 18; Pulse Ox 100% on R/A; mb9 16:01 Body Mass Index 34.37 (88.00 kg, 160.02 cm) ll1 16:01 Pain Scale: Adult ll1 MDM: 15:54 Patient medically screened. kb 07/14 16:07 Order name: Urinalysis w/ reflexes; Complete Time: 17:00 kb 07/14 16:07 Order name: FHT's; Complete Time: 16:17 kb Administered Medications: No medications were administered Disposition Summary: 07/15/23 17:12 Discharge Ordered Notes: Location: Home kb Condition: Stable kb Diagnosis - Low back pain kb - Sciatica kb Followup: kb - With: Emergency Department - When: As needed - Reason: Worsening of condition Followup: kb - With: Private Physician - When: 2 - 3 days - Reason: Recheck today's complaints, Continuance of care, Re-evaluation by your physician Discharge Instructions: - Musculoskeletal Pain kb - Sciatica, Uled-mm-Wcwz kb - Second Trimester of , Vyyb-qv-Llal kb - Discharge Summary Sheet mb9 Forms: - Medication Reconciliation Form kb - Antibiotic Education kb - Prescription Opioid Use kb - Patient Portal Instructions kb - Leadership Thank You Letter kb - Work release form mb9 Signatures: Dispatcher [employer] Lety Martínez, SURVEY DIRECTOR-C SURVEY DIRECTOR-Ckb Mayi Jack, RN RN ll1
[2023-07-15 17:49] VITALS: BP 127/91; TEMP 98.4; O2SAT 100
== END 2023-07-15 17:19 | disposition home or self-care (01) ==
LOC: ER 15:51
DX: M54.30 Sciatica, unspecified side (principal); Z88.8 Allergy status to other drugs, medicaments and biological substances
CPT/HCPCS: 81001

== ENCOUNTER 2024-08-11 18:56 | Emergency (ER) | payer MEDICARE, OTHER ==
--- OUTSIDE RECORDS SUMMARY | 2024-08-11 19:22 | XMS REPORT | Continuity of Care Document ---
Author Name Unknown Address [address] [facility] [address] [place] [address] [facility] [place] Address [address] [facility] [place] [address] Care Team Providers Care Special Education Science Teacher Name Role Phone Quin Doshi MD Primary Care Physician + [phone] ALEXANDRIA WHITMORE Attending Clinician Unavailable ALEXANDRIA WHITMORE Attending Clinician Unavailable Jil Carmichael PT Attending Clinician [phone] Issac Bernstein MD Attending Clinician [phone] Unknown, Attending Attending Clinician UnavailTereza Haley NP Attending Clinician [phone] ISSAC BERNSTEIN Attending Clinician Unavailable Doctor Unassigned, [place] Attending Clinician U Alexandria Albright MD Attending Clinician [phone] QUIN DOSHI Attending Clinician Unavailab QUIN West Attending Clinician Unavailab Quin West MD Attending Clinician [phone], [facility] Attending Clinician Unavailable DAHLIA LEWIS Attending Clinician Unavailable Dahlia Lewis DNP Attending Clinician [phone] KAYLEIGH LLANOS Attending Clinician Unavailable KAYLEIGH LLANOS Attending Clinician Unavailable Romi FULLER, Kayleigh Daley Attending Clinician [phone] Sarah FULLER, aPtito Chavez Attending Clinician [phone] NUBIA RIGGS Attending Clinician NUBIA Mullen Attending Clinician Elbert Modi MD Attending Clinician [phone] Keely FULLER, Nubia Attending Clinician + [phone] Amari MONTOYA Attending Clinician Unavailable Amari MONTOYA Attending Clinician Unavailable Amari Haile Attending Clinician [phone] ADUMBROOKLYN Attending Clinician Unavailable ADBROOKLYN HORN Attending Clinician Unavailable Ultrasound, Ang-Mfm Attending Clinician Unavaila CONCHITA Echols Attending Clinician UnavailCONCHITA Rivers Attending Clinician Unavailchris e 2, [facility] Attending Clinician Unavailable CADENCE ARANGO Attending Clinician Matthew Alvarez MD, Cadence Attending Clinician + Doctor Unassigned, [place] Attending Clinician U kelly Shoemaker RN, Lizzette Link Attending Clinician Unavailab le Pob, [facility] Main Attending Clinician Unavailchris e Tech, Js Eeg Attending Clinician Unavailable JESSE LEMOS Attending Clinician Unavailable Canelo FULLER, Jesse Attending Clinician [phone] GUI ALY Attending Clinician Unavailable Elbert Luevano MD Attending Clinician [phone] Gui Aly PA-C Attending Clinician [phone] ROLAN CASAREZ Attending Clinician Unavailable MILAN DELCID Attending Clinician Unavailable Leslie Carreon Attending Clinician UnavailMilan Smith MD Attending Clinician [phone] Corrine Llanos RN Attending Clinician Unavaila Rolan Fallon PA-C Attending Clinician [phone] Lab, [facility] Attending Clinician Unavailable MANNY VALLECILLO Attending Clinician Unavailable Mehran Marleyu Attending Clinician [phone] Unknown, Attending Attending Clinician Unavailab Liu Mike Attending Clinician Unavailable HAYLEY CASTILLO Attending Clinician Unavailable KAREN SIDDIQUI Attending Clinician Unavailable Dre FULLER, Alena France Attending Clinician + [phone] Deep FLOOR NURSE, Roma Robledo Attending Clinician [phone] EMELY CANALES Attending Clinician Unavailable Chinmay Aly DO Attending Clinician [phone] Nurse, [facility] Ting Pedi Attending Clinician Unavaila ALENA Moreno Attending Clinician Unavaila Karen Maria Attending Clinician [phone] Dalia Escalante MD Attending Clinician [phone] Eeg, Sapna Pedi Neuro Attending Clinician Unavaila DALIA Franklin Attending Clinician Unavailable Nurse, [facility] Attending Clinician Un available Urology, [facility] Pedi Attending Clinician Lizandro Morgan MD, Demetrius Attending Clinician [phone] Urology, Sapna Pedi Attending Clinician UnavailApryl Escobar MD Attending Clinician [phone] NUBIA RIGGS Admitting Clinician BROOKLYN Fletcher Admitting Clinician Unavailable ALEXANDRIA WHITMORE Admitting Clinician Unavailable KAYLEIGH LLANOS Admitting Clinician Unavailable Alexandria Whitmore MD Admitting Clinician [phone] Nubia Riggs MD Admitting Clinician + [phone] CONCHITA LOPEZ Admitting Clinician UnavailGUI Taylor Admitting Clinician Unavailable ROLAN CASAREZ Admitting Clinician Unavailable ALEXANDRIA WHITMORE Admitting Clinician Unavailable Payers Payer Name Policy Type Policy Number Effective Date Expirati on Date Source HIM [facility] BLUE ADVANTAGE O [id number] 2023 00:00:00 [facility] [id number] 2023 00:00:00 [employer] MEDICAID [id number] 2016 00:00:00 Problems Condition Name Condition Details Condition Category Status Onset Date Resolution Date Last Treatment Date Treating Clinician Comments Source Scar of abdominal wall Scar of abdominal wall Disease Active 4-14 00:00: 00 [facility] Weakness generalize d Weakness generalize d Disease Active 4-14 00:00: 00 [facility] Chronic bilateral low back pain without sciatica Chronic bilateral low back pain without sciatica Disease Active 4-14 00:00: 00 [facility] Lower abdominal pain Lower abdominal pain Disease Active 3-26 00:00: 00 [facility] Moderate episode of recurrent major depressive disorder Moderate episode of recurrent major depressive disorder Disease Active 3-26 00:00: 00 [facility] Generalize d anxiety disorder Generalize d anxiety disorder Disease Active 3-26 00:00: 00 [facility] uterine contractio ns uterine contractio ns Disease Active 8-21 00:00: 00 [facility] Nausea and vomiting during prior to 22 weeks gestation Nausea and vomiting during prior to 22 weeks gestation Disease Active 3-14 00:00: 00 [facility] Seizure Seizure Disease Active 1-02 00:00: 00 [facility] Generalize d epilepsy Generalize d epilepsy Disease Active 7-19 00:00: 00 Overview: Formattin g of this [...] will reevaluat e next visit." F/u 10/13/2018 [facility] 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 Disease Active 10-07 00:00: 00 [facility] Weight gain Weight gain Disease Active 10-07 00:00: 00 [facility] History of depression History of depression Disease Active 10-07 00:00: 00 [facility] Migraine without aura and without status migrainosu s, not intractabl e Migraine without aura and without status migrainosu s, not intractabl e Disease Active 03-30 00:00: 00 [facility] Family history of breast cancer Family history of breast cancer Disease Active 2017-03 00:00: 00 [facility] Breast asymmetry in female Breast asymmetry in female Disease Active 2017-03 00:00: 00 [facility] Asthma Asthma Disease Active [facility] Family history of familial hyperchole sterolemia Family history of familial hyperchole sterolemia Disease Active [facility] Liveborn , of morales , born in hospital by delivery Liveborn infant, of morales , born in hospital by delivery Disease Resolve d 4-0 9-13 00:00: 00 2024-01-04 00:00:00 2024-01-04 11:46:27 [facility] Encounter for induction of labor Encounter for induction of labor Disease Resolve d 2023-0 9-11 00:00: 00 2024-01-04 00:00:00 2024-01-04 11:46:22 [facility] 38 weeks gestation of 38 weeks gestation of Disease Resolve d 4-0 9-11 00:00: 00 2024-01-04 00:00:00 2024-01-04 11:46:24 [facility] 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 Disease Resolve d 4-0 9-11 00:00: 00 2024-01-04 00:00:00 2024-01-04 11:46:25 [facility] Non-reacti ve NST (non-stres s test) Non-reacti ve NST (non-stres s test) Disease Resolve d 0 9-11 00:00: 00 2024-01-04 00:00:00 2024-01-04 11:46:26 [facility] Nausea and vomiting during prior to 22 weeks gestation Nausea and vomiting during prior to 22 weeks gestation Disease Resolve d 0 3-14 00:00: 00 2024-01-04 00:00:00 2024-01-04 11:46:21 [facility] High-risk in third trimester High-risk in third trimester Disease Resolve d 0 2-15 00:00: 00 2024-01-04 00:00:00 2024-01-04 11:46:19 [facility] Obesity peds (BMI >=95 percentile ) Obesity peds (BMI >=95 percentile ) Disease Resolve d 0 7-19 00:00: 00 2024-01-04 00:00:00 2024-01-04 11:46:31 [facility] Weight gain Weight gain Disease Resolve d 7-18 00:00: 00 2024-01-04 00:00:00 2024-01-04 11:46:32 [facility] Uterine contractio ns during Uterine contractio ns during Disease Resolve d 8-21 00:00: 00 2023-12-09 00:00:00 2023-12-09 20:58:17 [facility] Allergic rhinitis Allergic rhinitis Disease Resolve d 2023-12-02 00:00:00 2023-12-02 11:29:42 [facility] Nexplanon in place Nexplanon in place Disease Resolve d - 00:00: 00 2022-11-13 00:00:00 2022-11-13 10:03:44 [facility] Burning with urination Burning with urination Disease Resolve d -14 00:00: 00 2020-04-02 00:00:00 2020-04-02 11:20:41 [facility] Chronic nonintract able headache, unspecifie d headache type Chronic nonintract able headache, unspecifie d headache type Disease Resolve d 3-13 00:00: 00 2020-04-02 00:00:00 2020-04-02 11:20:36 [facility] Depo-Prove ra contracept thea status Depo-Prove ra contracept thea status Disease Resolve d 2017-03 00:00: 00 2019-08-04 00:00:00 2019-08-04 14:30:03 [facility] Episodic altered awareness Episodic altered awareness Disease Resolve d 03-30 00:00: 00 2018-10-07 00:00:00 2018-10-08 08:29:51 [facility] Strep throat Strep throat Disease Resolve d 1 00:00: 00 2018-10-07 00:00:00 2018-10-07 15:03:24 [facility] Ovarian cyst Ovarian cyst Disease Resolve d 2016-03 205 00:00: 00 2018-10-07 00:00:00 2018-10-07 15:03:37 [facility] Menorrhagi a Menorrhagi a Disease Resolve d 2018-10-07 00:00:00 2018-10-07 16:01:44 [facility] High risk sexual behavior High risk sexual behavior Disease Resolve d 2018-01-13 00:00:00 2018-01-13 10:34:14 [facility] Unprotecte d sex Unprotecte d sex Disease Resolve d 2018-01-13 00:00:00 2018-01-13 10:34:18 [facility] Allergies, Adverse Reactions, Alerts Allergy Name Allergy Type Status Severity Reaction(s) Onset Date Inactive Date Treating Clinician Comments Source LEVETIRA CETAM DRUG INGREDI Active Other-Cmnt 2021-03 00:00: 00 [facility] Levetira cetam Propensi ty to adverse reaction s Active Other - See comments 2021-03 00:00: 00 Numb mouth, and sleepy [facility] Solifena lizabeth Succinat e Propensi ty to adverse reaction s Active Swelling 2016-03 00:00: 00 [facility] SOLIFENA LIZABETH SUCCINAT E DRUG INGREDI Active Rash 2016-03 00:00: 00 [facility] Solifena lizabeth Propensi ty to adverse reaction s Active Swelling 2011-03 00:00: 00 Per mom, after increasin g the dose to 10 mg , patient experienc ed swelling to the face. [facility] SOLIFENA LIZABETH DRUG INGREDI Active High Swelling 2011-03 00:00: 00 [facility] Family History Family Member Diagnosis Comments Start Date Stop Date Sourc e Natural father Unive [facility] Maternal aunt Thyroid Univer [facility] Maternal grandmother Diabetes [facility] Maternal grandmother Thyroid [facility] Natural mother Diabetes [facility] Natural mother Psychiatry [facility] Natural mother Thyroid Unive [facility] Other Breast Cancer Univer [facility] Other Cancer [facility] Other Colon Cancer [facility] Other Ovarian Cancer Unive [facility] Other Uterine Cancer Unive [facility] Other Stomach Cancer Unive [facility] Paternal aunt Univer [facility] Social History Social Habit Start Date Stop Date Quantity Comments Source ASSERTION 2023-03-25 00:00:00 Not [facility] History of tobacco use Passive smoker [facility] Gender identity [facility] Alcoholic beverage intake 2024-08-04 00:00:00 2024-08-04 00:00:00 Current non-drinker of alcohol (finding) [facility] History of Social function 2024-07-13 00:00:00 2024-07-13 00:00:00 [facility] Alcohol intake 2023-07-06 00:00:00 2023-07-06 00:00:00 Current non-drinker of alcohol (finding) [facility] Exposure to SARS-CoV-2 (event) 2022-08-01 00:00:00 2022-08-11 11:13:00 Not sure [facility] Tobacco use and exposure 2022-01-02 00:00:00 2022-01-02 00:00:00 Smokeless tobacco non-user [facility] Sex assigned at 2002 00:00:00 2000 00:00:00 [facility] Smoking Status Start Date Stop Date Source Never smoked tobacco [facility] Medications Ordered Medication Name Filled Medication Name Start Date Stop Date Current Medication? Ordering Clinician Indication Dosage Frequency Signature (SIG) Comments Components Source guaiFENesin 400 mg tablet 515 00:00: 00 Yes [id number] 400mg Take 1 tablet by mouth every 4 (four) hours. [facility] cyclobenzap rine 5 mg tablet 3-26 00:00: 00 Yes [id number] 5mg Take 1 tablet by mouth 3 (three) times daily as needed for Muscle Spasms. [facility] triamcinolo ne acetonide 0.1 % ointment 2023-03 0 00:00: 00 04-05 00:00 :00 No [id number] Apply to area(s) 2 (two) times daily. [facility] iopamidol (ISOVUE 370-500 mL) injection 100 mL 12-08 06:00: 00 12-08 06:00 :00 No [id number] 100mL 100 mL, Intravenou s, ONCE, 1 dose, On Thu12/09/23 at 0100, Routine [facility] acetaminoph en (TYLENOL) tablet 1,000 mg 12-08 05:00: 00 12-08 04:17 :00 No 1000mg 1,000 mg, Oral, ONCE, 1 dose, On Thu12/09/23 at 0000, Routine [facility] ibuprofen (IBU) tablet 600 mg 12-03 17:00: 00 Yes 600mg 600 mg, Oral, Q6H ABX, First dose (after last modificati on) on Thu12/04/23 at 1200, Until Discontinu ed, Routine [facility] docusate (COLACE) capsule 200 mg 12-03 14:00: 00 Yes 200mg 200 mg, Oral, DAILY, First dose on Thu12/04/23 at 0900, Until Discontinu ed, Routine [facility] vitamin w/FA tablet 12-03 00:00: 00 Yes [id number] 1{tbl} Take 1 tablet by mouth in the morning. [facility] docusate 100 mg capsule 12-03 00:00: 00 04-05 00:00 :00 No [id number] 200mg Take 2 capsules by mouth once daily as needed for Constipati on. [facility] ferrous sulfate 325 mg (65 mg iron) tablet 12-03 00:00: 00 04-05 00:00 :00 No [id number] 325mg Take 1 tablet by mouth in the morning. [facility] ibuprofen 800 mg tablet 12-03 00:00: 00 01-03 00:00 :00 No [id number] 800mg Take 1 tablet by mouth every 8 (eight) hours as needed (pain). Take with food or milk. [facility] acetaminoph en 500 mg tablet 12-03 00:00: 00 01-03 00:00 :00 No [id number] 1000mg Take 2 tablets by mouth every 8 (eight) hours as needed for Pain. [facility] oxyCODONE 5 mg immediate release tablet 12-03 00:00: 00 12-11 04:59 :00 No [id number] 5mg Take 1 tablet by mouth every 6 (six) hours as needed (pain) for up to 7 days. Indication s: acute pain [facility] gabapentin 300 mg capsule 12-03 00:00: 00 12-09 04:59 :00 No [id number] 300mg Take 1 capsule by mouth in the morning and 1 capsule at noon and 1 capsule in the evening. Do all this for 5 days. [facility] ketorolac (TORADOL) injection 30 mg 12-02 23:00: 00 12-03 13:53 :54 No 30mg 30 mg, Slow IV Push, Q6H ABX, 4 doses, First dose on Thu12/03/23 at 1800, Last dose on Thu12/04/23 at 1200, Routine [facility] gabapentin (NEURONTIN) capsule 300 mg 12-02 19:00: 00 Yes 300mg 300 mg, Oral, TID, First dose on Thu12/03/23 at 1400, Until Discontinu ed, Routine [facility] simethicone (GAS RELIEF (SIMETHICON E)) chewable tablet 160 mg 12-02 19:00: 00 Yes 160mg 160 mg, Oral, TID, First dose on Thu12/03/23 at 1400, Until Discontinu ed, Routine [facility] acetaminoph en (TYLENOL) tablet 1,000 mg 12-02 17:00: 00 Yes 1000mg 1,000 mg, Oral, Q8H ABX, First dose on Thu12/03/23 at 1200, Until Discontinu ed, Routine [facility] lactated ringers IV infusion 1,000 mL 12-02 16:30: 00 12-03 04:29 :00 No 1000mL at 125 mL/hr, 1,000 mL, IV Infusion, ONCE, 1 dose, On Thu12/03/23 at 1130, Routine [facility] rho(D) immune globulin (RHOPHYLAC) injection 300 mcg 12-02 16:19: 20 Yes 300ug [facility] oxyCODONE immediate release tablet 5 mg 12-02 16:19: 16 Yes 5mg [facility] diphenhydrA MINE (BENADRYL) injection 25 mg 12-02 16:19: 16 Yes 25mg [facility] diphenhydrA MINE (BENADRYL) tablet 25 mg 12-02 16:19: 16 Yes 25mg [facility] ondansetron (ZOFRAN (PF)) injection 4 mg 12-02 16:19: 16 Yes 4mg [facility] bisacodyL (DULCOLAX) suppository 10 mg 12-02 16:19: 16 Yes 10mg [facility] magnesium hydroxide (MILK OF MAGNESIA) 400 mg/5 mL suspension 30 mL 12-02 16:19: 16 Yes 30mL [facility] lactated ringers IV infusion 1,000 mL 12-02 16:19: 16 Yes 1000mL [facility] ketorolac (TORADOL) injection 12-02 11:55: 00 12-02 12:01 :42 No Slow IV Push, ONCE INTRA PROCEDURE, Starting on Gladys 12/03/23 at 0655, Until Gladys 12/03/23 at 0701, Routine, Intra-op [facility] azithromyci n (ZITHROMAX) 500 mg in NaCl 0.9% (NS) 250 mL IV piggyback 12-02 11:54: 00 12-02 12:01 :42 No IV Piggyback, CONTINUOUS PRN, Starting on Gladys 12/03/23 at 0654, Until Gladys 12/03/23 at 0701, Administer over 60 Minutes, 250 mL, [facility] mupirocin (BACTROBAN OINT) 2 % oinintment 12-02 11:50: 00 Yes Intra-op [facility] acetaminoph en (OFIRMEV) IV piggyback 12-02 11:46: 00 12-02 12:01 :42 No IV Infusion, Administer over 15 Minutes, ONCE INTRA PROCEDURE, Starting on Gladys 12/03/23 at 0646, Until Gladys 12/03/23 at 0701, Routine, Intra-op [facility] mupirocin (BACTROBAN OINT) 2 % oinintment 12-02 11:37: 41 Yes [facility] ondansetron (ZOFRAN (PF)) injection 2024-0 9-12 11:22: 00 12-02 12:01 :42 No Slow IV Push, ONCE INTRA PROCEDURE, Starting on Gladys 12/03/23 at 0622, Until Gladys 12/03/23 at 0701, Routine, Intra-op [facility] sodium chloride 0.9 % irrigation solution 12-02 11:19: 00 Yes PRN, Starting on Gladys 12/03/23 at 0619, Until Discontinu ed, Intra-op [facility] LR 1000 mL + oxytocin 20 units IV Solution 12-02 11:15: 00 12-02 12:01 :42 No IV Infusion, CONTINUOUS PRN, Starting on Gladys 12/03/23 at 0615, Until Gladys 12/03/23 at 0701, STEFANIA, Intra-op [facility] ePHEDrine 25 mg/5 mL (5 mg/mL) syringe 12-02 11:10: 00 12-02 12:01 :42 No Intravenou s, ONCE INTRA PROCEDURE, Starting on Gladys 12/03/23 at 0610, Until Gladys 12/03/23 at 0701, Routine, Intra-op [facility] phenylephri ne (VAZCULEP) injection 12-02 11:08: 00 12-02 12:01 :42 No Slow IV Push, CONTINUOUS PRN, Starting on Gladys 12/03/23 at 0608, Until Gladys 12/03/23 at 0701, Routine, Intra-op [facility] bupivacaine (preserv free) (MARCAINE (PF)) 0.75 % (7.5 mg/mL) injection 12-02 11:04: 00 12-02 12:01 :42 No Intratheca l, ONCE INTRA PROCEDURE, Starting on Gladys 12/03/23 at 0604, Until Gladys 12/03/23 at 0701, Routine, Intra-op [facility] morpHINE PF (DURAMORPH- PF) injection 12-02 11:04: 00 12-02 12:01 :42 No Epidural, ONCE INTRA PROCEDURE, Starting on Gladys 12/03/23 at 0604, Until Gladys 12/03/23 at 0701, Routine, Intra-op [facility] lactated ringers IV infusion 1,000 mL 12-02 11:00: 00 12-02 16:19 :32 No 1000mL at 125 mL/hr, 1,000 mL, IV Infusion, CONTINUOUS , Starting on Gladys 12/03/23 at 0600, Until Gladys 12/03/23 at 1119, STEFANIA [facility] oxytocin (PITOCIN) 30 units in NS 500 mL IV infusion 12-02 10:49: 08 12-02 16:19 :32 No 300mL/h 300 mL/hr, IV Infusion, SEE-INSTRU CTIONS, Starting on Gladys 12/03/23 at 0549, Start at 300 mL/hr for 1 hr then 150 mL/hr for 1 hr. For post delivery uterotonic . [facility] lactated ringers IV infusion 12-02 10:47: 00 12-02 12:01 :42 No IV Infusion, CONTINUOUS PRN, Starting on Gladys 12/03/23 at 0547, Until Gladys 12/03/23 at 0701, Routine, Intra-op [facility] clindamycin in 5 % dextrose (CLEOCIN) 900 mg/50 mL IV piggyback RTU 900 mg 12-02 10:30: 00 12-03 02:29 :00 No 900mg 900 mg, IV Piggyback, Q8H ABX, 2 doses, First dose on Gladys 12/03/23 at 0530, Last dose on Gladys 12/03/23 at 1330, Administer over 30 Minutes, 50 mL, Reason for Anti-Infec tive: Surgical Prophylaxi s, Surgical Prophylaxi s: RISK INVESTIGATOR, Duration of therapy: within 24 hours of surgery, Restricted use approved by: After Hours (for ADC, CLC, LCC ONLY) [facility] gentamicin 360 mg in NaCl 0.9% (NS) 250 mL IV infusion 12-02 10:15: 00 12-02 16:21 :06 No 5mg/kg/ d 360 mg (rounded from 353 mg = 5 mg/kg/day ?70.6 kg Adjusted weight), IV Infusion, Q24H ABX, 2 doses, First dose on Thu12/03/23 at 0515, Last dose on Thu12/04/23 at 0515, Administer over 60 Minutes, 250 mL, Reason for Anti-Infec tive: Empiric Therapy for Suspected Infection, Empiric Therapy Site: Other, Other site: suspected intraamnio tic infection, Duration of therapy: 72 hours [facility] ondansetron (ZOFRAN (PF)) injection 4 mg 12-02 09:35: 14 12-02 09:58 :39 No 4mg 4 mg, Slow IV Push, Q8HPRN, Nausea and Vomiting (N/V), Starting on Thu12/03/23 at 0435, Doses of ondansetro n 16 mg and above need to be administer ed via IV piggyback. For Dose >=24mg ECG monitoring is advisable. [facility] ampicillin (POLYCILLIN -N) 2,000 mg in NaCl 0.9% (NS) 100 mL MINI-BAG 12-02 09:15: 00 12-03 12:59 :27 No 2g 2,000 mg (2 g), IV Piggyback, Q6H ABX, First dose on Thu12/03/23 at 0415, Until Discontinu ed, Administer over 30 Minutes, 100 mL, Reason for Anti-Infec tive: Empiric Therapy for Suspected Infection, Empiric Therapy Site: Other, Other site: suspected intraamnio tic infection, Duration of therapy: 72 hours [facility] oxytocin (PITOCIN) 30 units in NS 500 mL IV infusion 12-01 20:31: 01 12-02 16:21 :06 No 2mU/min at 2-40 mL/hr, IV Infusion, TITRATE, Starting on Thu12/02/23 at 1531, Until Thu12/03/23 at 1121, [facility] lactated ringers IV infusion 500 mL 12-01 17:00: 00 12-01 17:00 :00 No 500mL at 999 mL/hr, 500 mL, IV Infusion, ONCE, 1 dose, On Thu12/02/23 at 1200, [facility] FENTanyl (PF) (SUBLIMAZE) injection 100 mcg 12-01 16:26: 54 12-02 16:21 :06 No 100ug 100 mcg, Slow IV Push, Q1HPRN, Starting on Thu12/02/23 at 1126, Until Thu12/03/23 at 1121, Routine, Pain (scale 7-10), Cat 1 strip, until 8cm [facility] sodium citrate-cit tyrone acid (BICITRA) 500-334 mg/5 mL solution 30 mL 12-01 16:25: 27 12-02 10:10 :00 No 30mL 30 mL, Oral, PRE-PROCED URE ONCE, 1 dose, Starting on Thu12/02/23 at 1125, Until Thu12/03/23 at 0510, Routine, Surgery/Pr ocedure [facility] lactated ringers IV infusion 500 mL 12-01 16:25: 27 12-02 16:20 :14 No 500mL at 999 mL/hr, 500 mL, IV Infusion, PRN - SEE INSTRUCTIO NS, Starting on Thu12/02/23 at 1125, Until Thu12/03/23 at 1120, Routine [facility] D5W-LR IV infusion 1,000 mL 12-01 16:25: 27 12-02 16:20 :14 No 1000mL at 1-125 mL/hr, IV Infusion, TITRATE, Starting on Thu12/02/23 at 1125, Until Thu12/03/23 at 1120, Routine [facility] ondansetron (ZOFRAN-ODT ) disintegrat ing tablet 4 mg 11-22 19:30: 00 11-22 18:18 :00 No 4mg 4 mg, Oral, ONCE, 1 dose, On Thu11/23/23 at 1430, Routine [facility] ondansetron 4 mg disintegrat ing tablet 11-22 00:00: 00 12-03 00:00 :00 No [id number] 4mg Take 1 tablet by mouth every 8 (eight) hours as needed for Nausea and Vomiting (N/V). [facility] valACYclovi r (VALTREX) 500 mg tablet 11-10 00:00: 00 12-03 00:00 :00 No [id number] 500mg Take 1 tablet by mouth in the morning for 32 days. [facility] metoclopram chel HCl 10 mg tablet 10-20 00:00: 00 12-03 00:00 :00 No [id number] 10mg Take 1 tablet by mouth every 6 (six) hours as needed for Nausea and Vomiting (N/V). [facility] Breast Pump Monie 10-13 00:00: 00 10-13 00:00 :00 No Use as directed [facility] lactated ringers IV infusion 1,000 mL 10-08 20:00: 00 Yes 1000mL at 999 mL/hr, 1,000 mL, IV Infusion, CONTINUOUS , Starting on Thu10/09/23 at 1500, Until Discontinu ed, Routine [facility] Nitrofurant oin&Nit. Macrocryst (MACROBID) 100 mg capsule 100 mg 10-08 20:00: 00 10-08 20:09 :00 No 100mg 100 mg, Oral, ONCE, 1 dose, On Thu10/09/23 at 1500, Routine, Reason for Anti-Infec tive: Empiric Therapy for Suspected Infection, Empiric Therapy Site: Urine, Duration of therapy: Once (ED) [facility] ondansetron (ZOFRAN (PF)) injection 4 mg 10-08 19:45: 00 10-08 20:09 :00 No 4mg 4 mg, Slow IV Push, ONCE, On Thu10/09/23 at 1445, For 1 dose, Doses of ondansetro n 16 mg and above need to be administer ed via IV piggyback. For Dose >=24mg ECG monitoring is advisable. [facility] Nitrofurant oin&Nit. Macrocryst 100 mg capsule 2024-0 7-19 00:00: 00 11-10 00:00 :00 No [id number] 100mg Take 1 capsule by mouth in the morning and 1 capsule in the evening. [facility] NaCl 0.9% (NS) IV infusion 1,000 mL 09-10 21:15: 00 09-10 21:18 :00 No 1000mL at 1,000 mL/hr, IV Infusion, ONCE, 1 dose, On Thu09/11/23 at 1615, Routine [facility] NaCl 0.9% (NS) IV infusion 1,000 mL 09-10 20:45: 00 09-10 20:19 :00 No 1000mL at 1,000 mL/hr, IV Infusion, ONCE, 1 dose, On Thu09/11/23 at 1545, Routine [facility] acetaminoph en (TYLENOL) tablet 1,000 mg 09-10 19:00: 00 09-10 18:29 :00 No 1000mg 1,000 mg, Oral, ONCE, 1 dose, On Thu09/11/23 at 1400, Routine [facility] levETIRAcet am 500 mg 24 hr tablet 08-09 00:00: 00 12-03 00:00 :00 No [id number] Take 4 tabs once a day in the EVENING [facility] iron,carbon yl/ascorbic acid (FE C ORAL) 07-29 11:03: 27 12-03 00:00 :00 No [id number] Take by mouth. [facility] levETIRAcet am 500 mg 24 hr tablet 2023-0 -29 00:00: 00 08-09 00:00 :00 No [id number] Take 2 tabs once a day in the EVENING [facility] levETIRAcet am 750 mg tablet 2023-0 3-25 00:00: 00 Yes [id number] 750mg Take 1 tablet by mouth in the morning and 1 tablet in the evening. [facility] famotidine (PEPCID (PF)) injection 20 mg 2024-0 3-14 17:15: 00 06-03 16:10 :00 No 20mg 20 mg, Slow IV Push, ONCE NOW, 1 dose, On Gladys 06/04/23 at 1215, [facility] levETIRAcet am (KEPPRA) in NACL (ISO-OS) 1,000 mg/100 mL RTU 06-03 17:00: 00 06-03 18:09 :00 No 1000mg 1,000 mg, IV Piggyback, ONCE, 1 dose, On Thu06/04/23 at 1200, Administer over 15 Minutes, 100 mL [facility] ondansetron (ZOFRAN (PF)) injection 4 mg 06-03 16:15: 00 06-03 16:10 :00 No 4mg 4 mg, Slow IV Push, ONCE, 1 dose, On Gladys 06/04/23 at 1115, [facility] metoclopram chel HCl 10 mg tablet 06-03 00:00: 00 10-19 00:00 :00 No [id number] 10mg Take 1 tablet by mouth every 6 (six) hours as needed for Nausea and Vomiting (N/V). [facility] pyridoxine, VITAMIN B-6, (VITAMIN B-6) 25 mg tablet 06-03 00:00: 00 08-31 00:00 :00 No [id number] 25mg Take 1 tablet by mouth every 6 (six) hours as needed for Nausea and Vomiting (N/V). [facility] doxylamine (UNISOM, DOXYLAMINE, ) 25 mg tablet 06-03 00:00: 00 08-31 00:00 :00 No [id number] 25mg Take 1 tablet by mouth at bedtime as needed for Nausea and Vomiting (N/V). [facility] Lactobacill us acidophilus (PROBIOTIC ORAL) 2- 10:04: 06 Yes Take by mouth. [facility] Lactobacill us acidophilus (PROBIOTIC ORAL) 2- 14:49: 45 Yes Take by mouth. [facility] ofloxacin 0.3 % otic drops 08-11 00:00: 00 08-19 04:59 :00 No [id number] 5[drp] Place 5 Drops in right ear in the morning and 5 Drops in the evening. Do all this for 7 days. [facility] No known medications 2021-03 13:07: 23 No No known medication s [facility] etonogestre L (NEXPLANON) implant 68 mg 2021-03 16:15: 00 01-31 15:23 :00 No [id number] 68mg [facility] No known medications 2021-03 08:48: 39 No No known medication s [facility] No known medications 2021-03 09:58: 47 No No known medication s [facility] calcium chloride 100 mg/mL (10 %) syringe 1,000 mg 2020-03 04:30: 00 01-06 03:55 :00 No 1000mg 1,000 mg, Intravenou s, ONCE, 1 dose, On 01/05/21 at 2330, STAT [facility] levETIRAcet am (KEPPRA) in NACL (ISO-OS) 1,000 mg/100 mL RTU 2020-03 03:15: 00 01-06 02:51 :00 No 1000mg 1,000 mg, IV Infusion, ONCE, 1 dose, On 01/05/21 at 2215, Administer over 15 Minutes, 100 mL [facility] NaCl 0.9% (NS) IV infusion 1,000 mL 2020-03 03:00: 00 01-06 04:30 :00 No 1000mL at 999 mL/hr, IV Infusion, ONCE, 1 dose, On 01/05/21 at 2200, [facility] PNV no.95/jose francisco us fum/folic ac ( ORAL) 2020-03 23:25: 12 Yes [id number] Take by mouth. [facility] ciprofloxac in HCl 250 mg tablet 2020-03 00:00: 00 01-09 04:59 :00 No [id number] 250mg Take 1 tablet by mouth 2 (two) times daily for 3 days. [facility] fluticasone propionate 50 mcg/actuati on nasal spray 04-02 00:00: 00 01-05 00:00 :00 No [id number] 1{spray } Use 1 [place]len in each nostril daily. [facility] cetirizine 10 mg tablet 2019-03 00:00: 00 01-05 00:00 :00 No [id number] 10mg Take 1 tablet by mouth daily. [facility] ibuprofen 600 mg tablet 2019-03 00:00: 00 04-02 00:00 :00 No [id number] 600mg Take 1 tablet by mouth every 8 (eight) hours as needed for Pain (scale 4-6) (headache) . [facility] fluticasone propionate 50 mcg/actuati on nasal spray 2019-03 00:00: 04-02 00:00 :00 No [id number] 1{spray } Use 1 Ihlen in each nostril daily. [facility] etonogestre L (NEXPLANON) implant 68 mg 2019-03 22:45: 00 01-29 21:43 :00 No 68mg [facility] topiramate (TOPAMAX) 25 mg tablet 10-11 00:00: 00 02-23 00:00 :00 No [id number] 25mg Take 1 tablet by mouth 2 (two) times daily. [facility] topiramate (TOPAMAX) 25 mg tablet 10-05 20:30: 28 10-05 00:00 :00 No 25mg Take 25 mg by mouth. [facility] omeprazole 20 mg capsule 10-05 00:00: 00 02-23 00:00 :00 No [id number] 20mg Take 1 capsule by mouth daily. [facility] topiramate (TOPAMAX) 25 mg tablet 10-05 00:00: 10-11 00:00 :00 No 25mg Take 1 tablet by mouth 2 (two) times daily. [facility] meclizine 25 mg tablet 09-26 00:00: 02-23 00:00 :00 No 25mg Take 25 mg by mouth as needed. [facility] Nitrofurant oin&Nit. Macrocryst (MACROBID) 100 mg capsule 08-07 00:00: 10-05 00:00 :00 No [id number] 100mg Take 1 capsule by mouth 2 (two) times daily. [facility] etonogestre l (NEXPLANON) implant 68 mg 08-03 20:45: 00 08-03 19:36 :00 No 68mg [facility] norelgestro min-ethinyl estradiol 150-35 mcg/24 hr patch 06-14 00:00: 08-03 00:00 :00 No [id number] 1{patch } Apply 1 Patch to skin weekly. [facility] ibuprofen 600 mg tablet 05-22 00:00: 02-23 00:00 :00 No [id number] 600mg Take 1 tablet by mouth every 8 (eight) hours as needed for Pain (scale 4-6) (headache) . [facility] medroxyPROG ESTERone (DEPO-PROVE RA) injection 150 mg 05-16 23:00: 05-16 21:50 :00 No 150mg [facility] oxybutynin chloride 5 mg tablet 05-03 00:00: 00 10-05 00:00 :00 No [id number] 5mg Take 1 tablet by mouth 2 (two) times daily. [facility] polyethylen e glycol (MIRALAX) 17 gram/dose powder 2018-03 00:00: 00 04-02 00:00 :00 No [id number] 1/2 cap twice daily [facility] medroxyPROG ESTERone (DEPO-PROVE RA) injection 150 mg 11-11 15:00: 00 11-11 13:54 :00 No [id number] 150mg [facility] zonisamide 100 mg capsule 07-02 00:00: 00 05-03 00:00 :00 No [id number] 200mg Take 2 capsules by mouth daily. [facility] medroxyPROG ESTERone (DEPO-PROVE RA) injection 150 mg 2017-03 0 15:45: 00 06-14 15:23 :36 No 150mg [facility] Immunizations Ordered Immunization Name Filled Immunization Name Date Status Comments Source HIB 4 Dose Schedule 2023-12-09 14:15:00 Completed [facility] HPV 2023-12-08 21:58:00 Completed [facility] DTAP 2023-12-08 21:58:00 Completed [facility] HEPATITIS A 2023-12-08 21:58:00 Completed [facility] Hep B, Adol or Pedi Dosage 2023-12-08 21:58:00 Completed [facility] Meningococcal Polysaccharide (groups A, C, Y and W-135) conjugate vaccine (MCV4P) 2023-12-08 21:58:00 Completed [facility] MMR 2023-12-08 21:58:00 Completed [facility] Polio (IPV/OPV) 2023-12-08 21:58:00 Completed [facility] TDAP 2023-12-08 21:58:00 Completed [facility] Varicella (varivax)(chicken pox) 2023-12-08 21:58:00 Completed [facility] Pneumococcal 7 Conjugate, PCV7 (Prevnar7) 2023-12-08 21:58:00 Completed [facility] Influenza Virus Vaccine Quad .5 mL IM 6+ MO (FLUZONE/FLULAVAL/FLU ARIX) 2023-12-08 21:58:00 Completed [facility] Meningococcal B, Recombinant 2023-12-08 21:58:00 Completed [facility] Meningococcal B, OMV 2023-12-08 21:58:00 Completed [facility] SARS-COV-2 COVID-19 PFIZER VACCINE 2023-12-08 21:58:00 Completed [facility] Influenza Virus Vaccine Quad IM, Preserv and ABX Free 6 MO-64 YRS (FLUCELVAX) 2023-12-08 21:58:00 Completed [facility] HPV 2023-12-03 00:00:00 Completed [facility] DTAP 2023-12-03 00:00:00 Completed [facility] HIB 4 Dose Schedule 2023-12-03 00:00:00 Completed [facility] HEPATITIS A 2023-12-03 00:00:00 Completed [facility] Hep B, Adol or Pedi Dosage 2023-12-03 00:00:00 Completed [facility] Meningococcal Polysaccharide (groups A, C, Y and W-135) conjugate vaccine (MCV4P) 2023-12-03 00:00:00 Completed [facility] MMR 2023-12-03 00:00:00 Completed [facility] Polio (IPV/OPV) 2023-12-03 00:00:00 Completed [facility] TDAP 2023-12-03 00:00:00 Completed [facility] Varicella (varivax)(chicken pox) 2023-12-03 00:00:00 Completed [facility] Pneumococcal 7 Conjugate, PCV7 (Prevnar7) 2023-12-03 00:00:00 Completed [facility] SARS-COV-2 COVID-19 PFIZER VACCINE 2023-12-03 00:00:00 Completed [facility] HPV 2023-09-01 11:00:00 Completed [facility] DTAP 2023-09-01 11:00:00 Completed [facility] HIB 4 Dose Schedule 2023-09-01 11:00:00 Completed [facility] HEPATITIS A 2023-09-01 11:00:00 Completed [facility] Hep B, Adol or Pedi Dosage 2023-09-01 11:00:00 Completed [facility] Meningococcal Polysaccharide (groups A, C, Y and W-135) conjugate vaccine (MCV4P) 2023-09-01 11:00:00 Completed [facility] MMR 2023-09-01 11:00:00 Completed [facility] Polio (IPV/OPV) 2023-09-01 11:00:00 Completed [facility] TDAP 2023-09-01 11:00:00 Completed [facility] Varicella (varivax)(chicken pox) 2023-09-01 11:00:00 Completed [facility] Pneumococcal 7 Conjugate, PCV7 (Prevnar7) 2023-09-01 11:00:00 Completed [facility] Influenza Virus Vaccine Quad .5 mL IM 6+ MO (FLUZONE/FLULAVAL/FLU ARIX) 2023-09-01 11:00:00 Completed [facility] Meningococcal B, Recombinant 2023-09-01 11:00:00 Completed [facility] Meningococcal B, OMV 2023-09-01 11:00:00 Completed [facility] SARS-COV-2 COVID-19 PFIZER VACCINE 2023-09-01 11:00:00 Completed [facility] Influenza Virus Vaccine Quad IM, Preserv and ABX Free 6 MO-64 YRS (FLUCELVAX) 2023-09-01 11:00:00 Completed [facility] HPV 2023-08-12 09:00:00 Completed [facility] DTAP 2023-08-12 09:00:00 Completed [facility] HIB 4 Dose Schedule 2023-08-12 09:00:00 Completed [facility] HEPATITIS A 2023-08-12 09:00:00 Completed [facility] Hep B, Adol or Pedi Dosage 2023-08-12 09:00:00 Completed [facility] Meningococcal Polysaccharide (groups A, C, Y and W-135) conjugate vaccine (MCV4P) 2023-08-12 09:00:00 Completed [facility] MMR 2023-08-12 09:00:00 Completed [facility] Polio (IPV/OPV) 2023-08-12 09:00:00 Completed [facility] TDAP 2023-08-12 09:00:00 Completed [facility] Varicella (varivax)(chicken pox) 2023-08-12 09:00:00 Completed [facility] Pneumococcal 7 Conjugate, PCV7 (Prevnar7) 2023-08-12 09:00:00 Completed [facility] Influenza Virus Vaccine Quad .5 mL IM 6+ MO (FLUZONE/FLULAVAL/FLU ARIX) 2023-08-12 09:00:00 Completed [facility] Meningococcal B, Recombinant 2023-08-12 09:00:00 Completed [facility] Meningococcal B, OMV 2023-08-12 09:00:00 Completed [facility] SARS-COV-2 COVID-19 PFIZER VACCINE 2023-08-12 09:00:00 Completed [facility] Influenza Virus Vaccine Quad IM, Preserv and ABX Free 6 MO-64 YRS (FLUCELVAX) 2023-08-12 09:00:00 Completed [facility] HPV 2023-08-10 00:00:00 Completed [facility] DTAP 2023-08-10 00:00:00 Completed [facility] HIB 4 Dose Schedule 2023-08-10 00:00:00 Completed [facility] HEPATITIS A 2023-08-10 00:00:00 Completed [facility] Hep B, Adol or Pedi Dosage 2023-08-10 00:00:00 Completed [facility] Meningococcal Polysaccharide (groups A, C, Y and W-135) conjugate vaccine (MCV4P) 2023-08-10 00:00:00 Completed [facility] MMR 2023-08-10 00:00:00 Completed [facility] Polio (IPV/OPV) 2023-08-10 00:00:00 Completed [facility] TDAP 2023-08-10 00:00:00 Completed [facility] Varicella (varivax)(chicken pox) 2023-08-10 00:00:00 Completed [facility] Pneumococcal 7 Conjugate, PCV7 (Prevnar7) 2023-08-10 00:00:00 Completed [facility] Influenza Virus Vaccine Quad .5 mL IM 6+ MO (FLUZONE/FLULAVAL/FLU ARIX) 2023-08-10 00:00:00 Completed [facility] Meningococcal B, Recombinant 2023-08-10 00:00:00 Completed [facility] Meningococcal B, OMV 2023-08-10 00:00:00 Completed [facility] SARS-COV-2 COVID-19 PFIZER VACCINE 2023-08-10 00:00:00 Completed [facility] Influenza Virus Vaccine Quad IM, Preserv and ABX Free 6 MO-64 YRS (FLUCELVAX) 2023-08-10 00:00:00 Completed [facility] HPV 2023-08-04 10:15:00 Completed [facility] DTAP 2023-08-04 10:15:00 Completed [facility] HIB 4 Dose Schedule 2023-08-04 10:15:00 Completed [facility] HEPATITIS A 2023-08-04 10:15:00 Completed [facility] Hep B, Adol or Pedi Dosage 2023-08-04 10:15:00 Completed [facility] Meningococcal Polysaccharide (groups A, C, Y and W-135) conjugate vaccine (MCV4P) 2023-08-04 10:15:00 Completed [facility] MMR 2023-08-04 10:15:00 Completed [facility] Polio (IPV/OPV) 2023-08-04 10:15:00 Completed [facility] TDAP 2023-08-04 10:15:00 Completed [facility] Varicella (varivax)(chicken pox) 2023-08-04 10:15:00 Completed [facility] Pneumococcal 7 Conjugate, PCV7 (Prevnar7) 2023-08-04 10:15:00 Completed [facility] Influenza Virus Vaccine Quad .5 mL IM 6+ MO (FLUZONE/FLULAVAL/FLU ARIX) 2023-08-04 10:15:00 Completed [facility] Meningococcal B, Recombinant 2023-08-04 10:15:00 Completed [facility] Meningococcal B, OMV 2023-08-04 10:15:00 Completed [facility] SARS-COV-2 COVID-19 PFIZER VACCINE 2023-08-04 10:15:00 Completed [facility] Influenza Virus Vaccine Quad IM, Preserv and ABX Free 6 MO-64 YRS (FLUCELVAX) 2023-08-04 10:15:00 Completed [facility] HPV 2023-08-04 08:30:00 Completed [facility] DTAP 2023-08-04 08:30:00 Completed [facility] HIB 4 Dose Schedule 2023-08-04 08:30:00 Completed [facility] HEPATITIS A 2023-08-04 08:30:00 Completed [facility] Hep B, Adol or Pedi Dosage 2023-08-04 08:30:00 Completed [facility] Meningococcal Polysaccharide (groups A, C, Y and W-135) conjugate vaccine (MCV4P) 2023-08-04 08:30:00 Completed [facility] MMR 2023-08-04 08:30:00 Completed [facility] Polio (IPV/OPV) 2023-08-04 08:30:00 Completed [facility] TDAP 2023-08-04 08:30:00 Completed [facility] Varicella (varivax)(chicken pox) 2023-08-04 08:30:00 Completed [facility] Pneumococcal 7 Conjugate, PCV7 (Prevnar7) 2023-08-04 08:30:00 Completed [facility] Influenza Virus Vaccine Quad .5 mL IM 6+ MO (FLUZONE/FLULAVAL/FLU ARIX) 2023-08-04 08:30:00 Completed [facility] Meningococcal B, Recombinant 2023-08-04 08:30:00 Completed [facility] Meningococcal B, OMV 2023-08-04 08:30:00 Completed [facility] SARS-COV-2 COVID-19 PFIZER VACCINE 2023-08-04 08:30:00 Completed [facility] Influenza Virus Vaccine Quad IM, Preserv and ABX Free 6 MO-64 YRS (FLUCELVAX) 2023-08-04 08:30:00 Completed [facility] HPV 2023-07-30 07:41:00 Completed [facility] DTAP 2023-07-30 07:41:00 Completed [facility] HIB 4 Dose Schedule 2023-07-30 07:41:00 Completed [facility] HEPATITIS A 2023-07-30 07:41:00 Completed [facility] Hep B, Adol or Pedi Dosage 2023-07-30 07:41:00 Completed [facility] Meningococcal Polysaccharide (groups A, C, Y and W-135) conjugate vaccine (MCV4P) 2023-07-30 07:41:00 Completed [facility] MMR 2023-07-30 07:41:00 Completed [facility] Polio (IPV/OPV) 2023-07-30 07:41:00 Completed [facility] TDAP 2023-07-30 07:41:00 Completed [facility] Varicella (varivax)(chicken pox) 2023-07-30 07:41:00 Completed [facility] Pneumococcal 7 Conjugate, PCV7 (Prevnar7) 2023-07-30 07:41:00 Completed [facility] Influenza Virus Vaccine Quad .5 mL IM 6+ MO (FLUZONE/FLULAVAL/FLU ARIX) 2023-07-30 07:41:00 Completed [facility] Meningococcal B, Recombinant 2023-07-30 07:41:00 Completed [facility] Meningococcal B, OMV 2023-07-30 07:41:00 Completed [facility] SARS-COV-2 COVID-19 PFIZER VACCINE 2023-07-30 07:41:00 Completed [facility] Influenza Virus Vaccine Quad IM, Preserv and ABX Free 6 MO-64 YRS (FLUCELVAX) 2023-07-30 07:41:00 Completed [facility] HPV 2023-07-30 00:00:00 Completed [facility] DTAP 2023-07-30 00:00:00 Completed [facility] HIB 4 Dose Schedule 2023-07-30 00:00:00 Completed [facility] HEPATITIS A 2023-07-30 00:00:00 Completed [facility] Hep B, Adol or Pedi Dosage 2023-07-30 00:00:00 Completed [facility] Meningococcal Polysaccharide (groups A, C, Y and W-135) conjugate vaccine (MCV4P) 2023-07-30 00:00:00 Completed [facility] MMR 2023-07-30 00:00:00 Completed [facility] Polio (IPV/OPV) 2023-07-30 00:00:00 Completed [facility] TDAP 2023-07-30 00:00:00 Completed [facility] Varicella (varivax)(chicken pox) 2023-07-30 00:00:00 Completed [facility] Pneumococcal 7 Conjugate, PCV7 (Prevnar7) 2023-07-30 00:00:00 Completed [facility] Influenza Virus Vaccine Quad .5 mL IM 6+ MO (FLUZONE/FLULAVAL/FLU ARIX) 2023-07-30 00:00:00 Completed [facility] Meningococcal B, Recombinant 2023-07-30 00:00:00 Completed [facility] Meningococcal B, OMV 2023-07-30 00:00:00 Completed [facility] SARS-COV-2 COVID-19 PFIZER VACCINE 2023-07-30 00:00:00 Completed [facility] Influenza Virus Vaccine Quad IM, Preserv and ABX Free 6 MO-64 YRS (FLUCELVAX) 2023-07-30 00:00:00 Completed [facility] TDAP 2023-07-29 12:00:00 Completed [facility] Influenza Virus Vaccine Quad .5 mL IM 6+ MO (FLUZONE/FLULAVAL/FLU ARIX) 2023-07-29 12:00:00 Completed [facility] Meningococcal B, Recombinant 2023-07-29 12:00:00 Completed [facility] Meningococcal B, OMV 2023-07-29 12:00:00 Completed [facility] Influenza Virus Vaccine Quad IM, Preserv and ABX Free 6 MO-64 YRS (FLUCELVAX) 2023-07-29 12:00:00 Completed [facility] HPV 2023-07-29 12:00:00 Completed [facility] DTAP 2023-07-29 12:00:00 Completed [facility] HIB 4 Dose Schedule 2023-07-29 12:00:00 Completed [facility] HEPATITIS A 2023-07-29 12:00:00 Completed [facility] Hep B, Adol or Pedi Dosage 2023-07-29 12:00:00 Completed [facility] Meningococcal Polysaccharide (groups A, C, Y and W-135) conjugate vaccine (MCV4P) 2023-07-29 12:00:00 Completed [facility] MMR 2023-07-29 12:00:00 Completed [facility] Polio (IPV/OPV) 2023-07-29 12:00:00 Completed [facility] Varicella (varivax)(chicken pox) 2023-07-29 12:00:00 Completed [facility] Pneumococcal 7 Conjugate, PCV7 (Prevnar7) 2023-07-29 12:00:00 Completed [facility] SARS-COV-2 COVID-19 PFIZER VACCINE 2023-07-29 12:00:00 Completed [facility] HPV 2023-07-16 07:55:21 Completed [facility] DTAP 2023-07-16 07:55:21 Completed [facility] HIB 4 Dose Schedule 2023-07-16 07:55:21 Completed [facility] HEPATITIS A 2023-07-16 07:55:21 Completed [facility] Hep B, Adol or Pedi Dosage 2023-07-16 07:55:21 Completed [facility] Meningococcal Polysaccharide (groups A, C, Y and W-135) conjugate vaccine (MCV4P) 2023-07-16 07:55:21 Completed [facility] MMR 2023-07-16 07:55:21 Completed [facility] Polio (IPV/OPV) 2023-07-16 07:55:21 Completed [facility] TDAP 2023-07-16 07:55:21 Completed [facility] Varicella (varivax)(chicken pox) 2023-07-16 07:55:21 Completed [facility] Pneumococcal 7 Conjugate, PCV7 (Prevnar7) 2023-07-16 07:55:21 Completed [facility] Influenza Virus Vaccine Quad .5 mL IM 6+ MO (FLUZONE/FLULAVAL/FLU ARIX) 2023-07-16 07:55:21 Completed [facility] Meningococcal B, Recombinant 2023-07-16 07:55:21 Completed [facility] Meningococcal B, OMV 2023-07-16 07:55:21 Completed [facility] SARS-COV-2 COVID-19 PFIZER VACCINE 2023-07-16 07:55:21 Completed [facility] Influenza Virus Vaccine Quad IM, Preserv and ABX Free 6 MO-64 YRS (FLUCELVAX) 2023-07-16 07:55:21 Completed [facility] HPV 2023-07-13 00:00:00 Completed [facility] DTAP 2023-07-13 00:00:00 Completed [facility] HIB 4 Dose Schedule 2023-07-13 00:00:00 Completed [facility] HEPATITIS A 2023-07-13 00:00:00 Completed [facility] Hep B, Adol or Pedi Dosage 2023-07-13 00:00:00 Completed [facility] Meningococcal Polysaccharide (groups A, C, Y and W-135) conjugate vaccine (MCV4P) 2023-07-13 00:00:00 Completed [facility] MMR 2023-07-13 00:00:00 Completed [facility] Polio (IPV/OPV) 2023-07-13 00:00:00 Completed [facility] TDAP 2023-07-13 00:00:00 Completed [facility] Varicella (varivax)(chicken pox) 2023-07-13 00:00:00 Completed [facility] Pneumococcal 7 Conjugate, PCV7 (Prevnar7) 2023-07-13 00:00:00 Completed [facility] Influenza Virus Vaccine Quad .5 mL IM 6+ MO (FLUZONE/FLULAVAL/FLU ARIX) 2023-07-13 00:00:00 Completed [facility] Meningococcal B, Recombinant 2023-07-13 00:00:00 Completed [facility] Meningococcal B, OMV 2023-07-13 00:00:00 Completed [facility] SARS-COV-2 COVID-19 PFIZER VACCINE 2023-07-13 00:00:00 Completed [facility] Influenza Virus Vaccine Quad IM, Preserv and ABX Free 6 MO-64 YRS (FLUCELVAX) 2023-07-13 00:00:00 Completed [facility] HPV 2023-07-09 00:00:00 Completed [facility] DTAP 2023-07-09 00:00:00 Completed [facility] HIB 4 Dose Schedule 2023-07-09 00:00:00 Completed [facility] HEPATITIS A 2023-07-09 00:00:00 Completed [facility] Hep B, Adol or Pedi Dosage 2023-07-09 00:00:00 Completed [facility] Meningococcal Polysaccharide (groups A, C, Y and W-135) conjugate vaccine (MCV4P) 2023-07-09 00:00:00 Completed [facility] MMR 2023-07-09 00:00:00 Completed [facility] Polio (IPV/OPV) 2023-07-09 00:00:00 Completed [facility] TDAP 2023-07-09 00:00:00 Completed [facility] Varicella (varivax)(chicken pox) 2023-07-09 00:00:00 Completed [facility] Pneumococcal 7 Conjugate, PCV7 (Prevnar7) 2023-07-09 00:00:00 Completed [facility] Influenza Virus Vaccine Quad .5 mL IM 6+ MO (FLUZONE/FLULAVAL/FLU ARIX) 2023-07-09 00:00:00 Completed [facility] Meningococcal B, Recombinant 2023-07-09 00:00:00 Completed [facility] Meningococcal B, OMV 2023-07-09 00:00:00 Completed [facility] SARS-COV-2 COVID-19 PFIZER VACCINE 2023-07-09 00:00:00 Completed [facility] Influenza Virus Vaccine Quad IM, Preserv and ABX Free 6 MO-64 YRS (FLUCELVAX) 2023-07-09 00:00:00 Completed [facility] HPV 2023-07-06 11:00:00 Completed [facility] DTAP 2023-07-06 11:00:00 Completed [facility] HIB 4 Dose Schedule 2023-07-06 11:00:00 Completed [facility] HEPATITIS A 2023-07-06 11:00:00 Completed [facility] Hep B, Adol or Pedi Dosage 2023-07-06 11:00:00 Completed [facility] Meningococcal Polysaccharide (groups A, C, Y and W-135) conjugate vaccine (MCV4P) 2023-07-06 11:00:00 Completed [facility] MMR 2023-07-06 11:00:00 Completed [facility] Polio (IPV/OPV) 2023-07-06 11:00:00 Completed [facility] TDAP 2023-07-06 11:00:00 Completed [facility] Varicella (varivax)(chicken pox) 2023-07-06 11:00:00 Completed [facility] Pneumococcal 7 Conjugate, PCV7 (Prevnar7) 2023-07-06 11:00:00 Completed [facility] Influenza Virus Vaccine Quad .5 mL IM 6+ MO (FLUZONE/FLULAVAL/FLU ARIX) 2023-07-06 11:00:00 Completed [facility] Meningococcal B, Recombinant 2023-07-06 11:00:00 Completed [facility] Meningococcal B, OMV 2023-07-06 11:00:00 Completed [facility] SARS-COV-2 COVID-19 PFIZER VACCINE 2023-07-06 11:00:00 Completed [facility] Influenza Virus Vaccine Quad IM, Preserv and ABX Free 6 MO-64 YRS (FLUCELVAX) 2023-07-06 11:00:00 Completed [facility] HPV 2023-07-03 00:00:00 Completed [facility] DTAP 2023-07-03 00:00:00 Completed [facility] HIB 4 Dose Schedule 2023-07-03 00:00:00 Completed [facility] HEPATITIS A 2023-07-03 00:00:00 Completed [facility] Hep B, Adol or Pedi Dosage 2023-07-03 00:00:00 Completed [facility] Meningococcal Polysaccharide (groups A, C, Y and W-135) conjugate vaccine (MCV4P) 2023-07-03 00:00:00 Completed [facility] MMR 2023-07-03 00:00:00 Completed [facility] Polio (IPV/OPV) 2023-07-03 00:00:00 Completed [facility] TDAP 2023-07-03 00:00:00 Completed [facility] Varicella (varivax)(chicken pox) 2023-07-03 00:00:00 Completed [facility] Pneumococcal 7 Conjugate, PCV7 (Prevnar7) 2023-07-03 00:00:00 Completed [facility] Influenza Virus Vaccine Quad .5 mL IM 6+ MO (FLUZONE/FLULAVAL/FLU ARIX) 2023-07-03 00:00:00 Completed [facility] Meningococcal B, Recombinant 2023-07-03 00:00:00 Completed [facility] Meningococcal B, OMV 2023-07-03 00:00:00 Completed [facility] SARS-COV-2 COVID-19 PFIZER VACCINE 2023-07-03 00:00:00 Completed [facility] Influenza Virus Vaccine Quad IM, Preserv and ABX Free 6 MO-64 YRS (FLUCELVAX) 2023-07-03 00:00:00 Completed [facility] HPV 2023-06-24 00:00:00 Completed [facility] DTAP 2023-06-24 00:00:00 Completed [facility] HIB 4 Dose Schedule 2023-06-24 00:00:00 Completed [facility] HEPATITIS A 2023-06-24 00:00:00 Completed [facility] Hep B, Adol or Pedi Dosage 2023-06-24 00:00:00 Completed [facility] Meningococcal Polysaccharide (groups A, C, Y and W-135) conjugate vaccine (MCV4P) 2023-06-24 00:00:00 Completed [facility] MMR 2023-06-24 00:00:00 Completed [facility] Polio (IPV/OPV) 2023-06-24 00:00:00 Completed [facility] TDAP 2023-06-24 00:00:00 Completed [facility] Varicella (varivax)(chicken pox) 2023-06-24 00:00:00 Completed [facility] Pneumococcal 7 Conjugate, PCV7 (Prevnar7) 2023-06-24 00:00:00 Completed [facility] Influenza Virus Vaccine Quad .5 mL IM 6+ MO (FLUZONE/FLULAVAL/FLU ARIX) 2023-06-24 00:00:00 Completed [facility] Meningococcal B, Recombinant 2023-06-24 00:00:00 Completed [facility] Meningococcal B, OMV 2023-06-24 00:00:00 Completed [facility] SARS-COV-2 COVID-19 PFIZER VACCINE 2023-06-24 00:00:00 Completed [facility] Influenza Virus Vaccine Quad IM, Preserv and ABX Free 6 MO-64 YRS (FLUCELVAX) 2023-06-24 00:00:00 Completed [facility] TDAP 2023-06-17 00:00:00 Completed [facility] Influenza Virus Vaccine Quad .5 mL IM 6+ MO (FLUZONE/FLULAVAL/FLU ARIX) 2023-06-17 00:00:00 Completed [facility] Meningococcal B, Recombinant 2023-06-17 00:00:00 Completed [facility] Meningococcal B, OMV 2023-06-17 00:00:00 Completed [facility] Influenza Virus Vaccine Quad IM, Preserv and ABX Free 6 MO-64 YRS (FLUCELVAX) 2023-06-17 00:00:00 Completed [facility] HPV 2023-06-17 00:00:00 Completed [facility] DTAP 2023-06-17 00:00:00 Completed [facility] HIB 4 Dose Schedule 2023-06-17 00:00:00 Completed [facility] HEPATITIS A 2023-06-17 00:00:00 Completed [facility] Hep B, Adol or Pedi Dosage 2023-06-17 00:00:00 Completed [facility] Meningococcal Polysaccharide (groups A, C, Y and W-135) conjugate vaccine (MCV4P) 2023-06-17 00:00:00 Completed [facility] MMR 2023-06-17 00:00:00 Completed [facility] Polio (IPV/OPV) 2023-06-17 00:00:00 Completed [facility] Varicella (varivax)(chicken pox) 2023-06-17 00:00:00 Completed [facility] Pneumococcal 7 Conjugate, PCV7 (Prevnar7) 2023-06-17 00:00:00 Completed [facility] SARS-COV-2 COVID-19 PFIZER VACCINE 2023-06-17 00:00:00 Completed [facility] HPV 2023-06-17 00:00:00 Completed [facility] DTAP 2023-06-17 00:00:00 Completed [facility] HIB 4 Dose Schedule 2023-06-17 00:00:00 Completed [facility] HEPATITIS A 2023-06-17 00:00:00 Completed [facility] Hep B, Adol or Pedi Dosage 2023-06-17 00:00:00 Completed [facility] Meningococcal Polysaccharide (groups A, C, Y and W-135) conjugate vaccine (MCV4P) 2023-06-17 00:00:00 Completed [facility] MMR 2023-06-17 00:00:00 Completed [facility] Polio (IPV/OPV) 2023-06-17 00:00:00 Completed [facility] TDAP 2023-06-17 00:00:00 Completed [facility] Varicella (varivax)(chicken pox) 2023-06-17 00:00:00 Completed [facility] Pneumococcal 7 Conjugate, PCV7 (Prevnar7) 2023-06-17 00:00:00 Completed [facility] Influenza Virus Vaccine Quad .5 mL IM 6+ MO (FLUZONE/FLULAVAL/FLU ARIX) 2023-06-17 00:00:00 Completed [facility] Meningococcal B, Recombinant 2023-06-17 00:00:00 Completed [facility] Meningococcal B, OMV 2023-06-17 00:00:00 Completed [facility] SARS-COV-2 COVID-19 PFIZER VACCINE 2023-06-17 00:00:00 Completed [facility] Influenza Virus Vaccine Quad IM, Preserv and ABX Free 6 MO-64 YRS (FLUCELVAX) 2023-06-17 00:00:00 Completed [facility] HPV 2023-06-15 09:00:00 Completed [facility] DTAP 2023-06-15 09:00:00 Completed [facility] HIB 4 Dose Schedule 2023-06-15 09:00:00 Completed [facility] HEPATITIS A 2023-06-15 09:00:00 Completed [facility] Hep B, Adol or Pedi Dosage 2023-06-15 09:00:00 Completed [facility] Meningococcal Polysaccharide (groups A, C, Y and W-135) conjugate vaccine (MCV4P) 2023-06-15 09:00:00 Completed [facility] MMR 2023-06-15 09:00:00 Completed [facility] Polio (IPV/OPV) 2023-06-15 09:00:00 Completed [facility] TDAP 2023-06-15 09:00:00 Completed [facility] Varicella (varivax)(chicken pox) 2023-06-15 09:00:00 Completed [facility] Pneumococcal 7 Conjugate, PCV7 (Prevnar7) 2023-06-15 09:00:00 Completed [facility] Influenza Virus Vaccine Quad .5 mL IM 6+ MO (FLUZONE/FLULAVAL/FLU ARIX) 2023-06-15 09:00:00 Completed [facility] Meningococcal B, Recombinant 2023-06-15 09:00:00 Completed [facility] Meningococcal B, OMV 2023-06-15 09:00:00 Completed [facility] SARS-COV-2 COVID-19 PFIZER VACCINE 2023-06-15 09:00:00 Completed [facility] Influenza Virus Vaccine Quad IM, Preserv and ABX Free 6 MO-64 YRS (FLUCELVAX) 2023-06-15 09:00:00 Completed [facility] HPV 2023-06-05 08:15:00 Completed [facility] DTAP 2023-06-05 08:15:00 Completed [facility] HIB 4 Dose Schedule 2023-06-05 08:15:00 Completed [facility] HEPATITIS A 2023-06-05 08:15:00 Completed [facility] Hep B, Adol or Pedi Dosage 2023-06-05 08:15:00 Completed [facility] Meningococcal Polysaccharide (groups A, C, Y and W-135) conjugate vaccine (MCV4P) 2023-06-05 08:15:00 Completed [facility] MMR 2023-06-05 08:15:00 Completed [facility] Polio (IPV/OPV) 2023-06-05 08:15:00 Completed [facility] TDAP 2023-06-05 08:15:00 Completed [facility] Varicella (varivax)(chicken pox) 2023-06-05 08:15:00 Completed [facility] Pneumococcal 7 Conjugate, PCV7 (Prevnar7) 2023-06-05 08:15:00 Completed [facility] Influenza Virus Vaccine Quad .5 mL IM 6+ MO (FLUZONE/FLULAVAL/FLU ARIX) 2023-06-05 08:15:00 Completed [facility] Meningococcal B, Recombinant 2023-06-05 08:15:00 Completed [facility] Meningococcal B, OMV 2023-06-05 08:15:00 Completed [facility] SARS-COV-2 COVID-19 PFIZER VACCINE 2023-06-05 08:15:00 Completed [facility] Influenza Virus Vaccine Quad IM, Preserv and ABX Free 6 MO-64 YRS (FLUCELVAX) 2023-06-05 08:15:00 Completed [facility] HPV 2023-06-04 10:23:00 Completed [facility] DTAP 2023-06-04 10:23:00 Completed [facility] HIB 4 Dose Schedule 2023-06-04 10:23:00 Completed [facility] HEPATITIS A 2023-06-04 10:23:00 Completed [facility] Hep B, Adol or Pedi Dosage 2023-06-04 10:23:00 Completed [facility] Meningococcal Polysaccharide (groups A, C, Y and W-135) conjugate vaccine (MCV4P) 2023-06-04 10:23:00 Completed [facility] MMR 2023-06-04 10:23:00 Completed [facility] Polio (IPV/OPV) 2023-06-04 10:23:00 Completed [facility] TDAP 2023-06-04 10:23:00 Completed [facility] Varicella (varivax)(chicken pox) 2023-06-04 10:23:00 Completed [facility] Pneumococcal 7 Conjugate, PCV7 (Prevnar7) 2023-06-04 10:23:00 Completed [facility] Influenza Virus Vaccine Quad .5 mL IM 6+ MO (FLUZONE/FLULAVAL/FLU ARIX) 2023-06-04 10:23:00 Completed [facility] Meningococcal B, Recombinant 2023-06-04 10:23:00 Completed [facility] Meningococcal B, OMV 2023-06-04 10:23:00 Completed [facility] SARS-COV-2 COVID-19 PFIZER VACCINE 2023-06-04 10:23:00 Completed [facility] Influenza Virus Vaccine Quad IM, Preserv and ABX Free 6 MO-64 YRS (FLUCELVAX) 2023-06-04 10:23:00 Completed [facility] HPV 2023-06-04 10:00:00 Completed [facility] DTAP 2023-06-04 10:00:00 Completed [facility] HIB 4 Dose Schedule 2023-06-04 10:00:00 Completed [facility] HEPATITIS A 2023-06-04 10:00:00 Completed [facility] Hep B, Adol or Pedi Dosage 2023-06-04 10:00:00 Completed [facility] Meningococcal Polysaccharide (groups A, C, Y and W-135) conjugate vaccine (MCV4P) 2023-06-04 10:00:00 Completed [facility] MMR 2023-06-04 10:00:00 Completed [facility] Polio (IPV/OPV) 2023-06-04 10:00:00 Completed [facility] TDAP 2023-06-04 10:00:00 Completed [facility] Varicella (varivax)(chicken pox) 2023-06-04 10:00:00 Completed [facility] Pneumococcal 7 Conjugate, PCV7 (Prevnar7) 2023-06-04 10:00:00 Completed [facility] Influenza Virus Vaccine Quad .5 mL IM 6+ MO (FLUZONE/FLULAVAL/FLU ARIX) 2023-06-04 10:00:00 Completed [facility] Meningococcal B, Recombinant 2023-06-04 10:00:00 Completed [facility] Meningococcal B, OMV 2023-06-04 10:00:00 Completed [facility] SARS-COV-2 COVID-19 PFIZER VACCINE 2023-06-04 10:00:00 Completed [facility] Influenza Virus Vaccine Quad IM, Preserv and ABX Free 6 MO-64 YRS (FLUCELVAX) 2023-06-04 10:00:00 Completed [facility] TDAP 2023-06-04 09:00:00 Completed [facility] Influenza Virus Vaccine Quad .5 mL IM 6+ MO (FLUZONE/FLULAVAL/FLU ARIX) 2023-06-04 09:00:00 Completed [facility] Meningococcal B, Recombinant 2023-06-04 09:00:00 Completed [facility] Meningococcal B, OMV 2023-06-04 09:00:00 Completed [facility] Influenza Virus Vaccine Quad IM, Preserv and ABX Free 6 MO-64 YRS (FLUCELVAX) 2023-06-04 09:00:00 Completed [facility] HPV 2023-06-04 09:00:00 Completed [facility] DTAP 2023-06-04 09:00:00 Completed [facility] HIB 4 Dose Schedule 2023-06-04 09:00:00 Completed [facility] HEPATITIS A 2023-06-04 09:00:00 Completed [facility] Hep B, Adol or Pedi Dosage 2023-06-04 09:00:00 Completed [facility] Meningococcal Polysaccharide (groups A, C, Y and W-135) conjugate vaccine (MCV4P) 2023-06-04 09:00:00 Completed [facility] MMR 2023-06-04 09:00:00 Completed [facility] Polio (IPV/OPV) 2023-06-04 09:00:00 Completed [facility] Varicella (varivax)(chicken pox) 2023-06-04 09:00:00 Completed [facility] Pneumococcal 7 Conjugate, PCV7 (Prevnar7) 2023-06-04 09:00:00 Completed [facility] SARS-COV-2 COVID-19 PFIZER VACCINE 2023-06-04 09:00:00 Completed [facility] HPV 2023-06-04 00:00:00 Completed [facility] DTAP 2023-06-04 00:00:00 Completed [facility] HIB 4 Dose Schedule 2023-06-04 00:00:00 Completed [facility] HEPATITIS A 2023-06-04 00:00:00 Completed [facility] Hep B, Adol or Pedi Dosage 2023-06-04 00:00:00 Completed [facility] Meningococcal Polysaccharide (groups A, C, Y and W-135) conjugate vaccine (MCV4P) 2023-06-04 00:00:00 Completed [facility] MMR 2023-06-04 00:00:00 Completed [facility] Polio (IPV/OPV) 2023-06-04 00:00:00 Completed [facility] TDAP 2023-06-04 00:00:00 Completed [facility] Varicella (varivax)(chicken pox) 2023-06-04 00:00:00 Completed [facility] Pneumococcal 7 Conjugate, PCV7 (Prevnar7) 2023-06-04 00:00:00 Completed [facility] Influenza Virus Vaccine Quad .5 mL IM 6+ MO (FLUZONE/FLULAVAL/FLU ARIX) 2023-06-04 00:00:00 Completed [facility] Meningococcal B, Recombinant 2023-06-04 00:00:00 Completed [facility] Meningococcal B, OMV 2023-06-04 00:00:00 Completed [facility] SARS-COV-2 COVID-19 PFIZER VACCINE 2023-06-04 00:00:00 Completed [facility] Influenza Virus Vaccine Quad IM, Preserv and ABX Free 6 MO-64 YRS (FLUCELVAX) 2023-06-04 00:00:00 Completed [facility] HPV 2023-05-29 00:00:00 Completed [facility] DTAP 2023-05-29 00:00:00 Completed [facility] HIB 4 Dose Schedule 2023-05-29 00:00:00 Completed [facility] HEPATITIS A 2023-05-29 00:00:00 Completed [facility] Hep B, Adol or Pedi Dosage 2023-05-29 00:00:00 Completed [facility] Meningococcal Polysaccharide (groups A, C, Y and W-135) conjugate vaccine (MCV4P) 2023-05-29 00:00:00 Completed [facility] MMR 2023-05-29 00:00:00 Completed [facility] Polio (IPV/OPV) 2023-05-29 00:00:00 Completed [facility] TDAP 2023-05-29 00:00:00 Completed [facility] Varicella (varivax)(chicken pox) 2023-05-29 00:00:00 Completed [facility] Pneumococcal 7 Conjugate, PCV7 (Prevnar7) 2023-05-29 00:00:00 Completed [facility] Influenza Virus Vaccine Quad .5 mL IM 6+ MO (FLUZONE/FLULAVAL/FLU ARIX) 2023-05-29 00:00:00 Completed [facility] Meningococcal B, Recombinant 2023-05-29 00:00:00 Completed [facility] Meningococcal B, OMV 2023-05-29 00:00:00 Completed [facility] SARS-COV-2 COVID-19 PFIZER VACCINE 2023-05-29 00:00:00 Completed [facility] Influenza Virus Vaccine Quad IM, Preserv and ABX Free 6 MO-64 YRS (FLUCELVAX) 2023-05-29 00:00:00 Completed [facility] HPV 2023-05-16 15:57:00 Completed [facility] DTAP 2023-05-16 15:57:00 Completed [facility] HIB 4 Dose Schedule 2023-05-16 15:57:00 Completed [facility] HEPATITIS A 2023-05-16 15:57:00 Completed [facility] Hep B, Adol or Pedi Dosage 2023-05-16 15:57:00 Completed [facility] Meningococcal Polysaccharide (groups A, C, Y and W-135) conjugate vaccine (MCV4P) 2023-05-16 15:57:00 Completed [facility] MMR 2023-05-16 15:57:00 Completed [facility] Polio (IPV/OPV) 2023-05-16 15:57:00 Completed [facility] TDAP 2023-05-16 15:57:00 Completed [facility] Varicella (varivax)(chicken pox) 2023-05-16 15:57:00 Completed [facility] Pneumococcal 7 Conjugate, PCV7 (Prevnar7) 2023-05-16 15:57:00 Completed [facility] Influenza Virus Vaccine Quad .5 mL IM 6+ MO (FLUZONE/FLULAVAL/FLU ARIX) 2023-05-16 15:57:00 Completed [facility] Meningococcal B, Recombinant 2023-05-16 15:57:00 Completed [facility] Meningococcal B, OMV 2023-05-16 15:57:00 Completed [facility] SARS-COV-2 COVID-19 PFIZER VACCINE 2023-05-16 15:57:00 Completed [facility] Influenza Virus Vaccine Quad IM, Preserv and ABX Free 6 MO-64 YRS (FLUCELVAX) 2023-05-16 15:57:00 Completed [facility] TDAP 2023-05-07 10:00:00 Completed [facility] Influenza Virus Vaccine Quad .5 mL IM 6+ MO (FLUZONE/FLULAVAL/FLU ARIX) 2023-05-07 10:00:00 Completed [facility] Meningococcal B, Recombinant 2023-05-07 10:00:00 Completed [facility] Meningococcal B, OMV 2023-05-07 10:00:00 Completed [facility] Influenza Virus Vaccine Quad IM, Preserv and ABX Free 6 MO-64 YRS (FLUCELVAX) 2023-05-07 10:00:00 Completed [facility] HPV 2023-05-07 10:00:00 Completed [facility] DTAP 2023-05-07 10:00:00 Completed [facility] HIB 4 Dose Schedule 2023-05-07 10:00:00 Completed [facility] HEPATITIS A 2023-05-07 10:00:00 Completed [facility] Hep B, Adol or Pedi Dosage 2023-05-07 10:00:00 Completed [facility] Meningococcal Polysaccharide (groups A, C, Y and W-135) conjugate vaccine (MCV4P) 2023-05-07 10:00:00 Completed [facility] MMR 2023-05-07 10:00:00 Completed [facility] Polio (IPV/OPV) 2023-05-07 10:00:00 Completed [facility] Varicella (varivax)(chicken pox) 2023-05-07 10:00:00 Completed [facility] Pneumococcal 7 Conjugate, PCV7 (Prevnar7) 2023-05-07 10:00:00 Completed [facility] SARS-COV-2 COVID-19 PFIZER VACCINE 2023-05-07 10:00:00 Completed [facility] HPV 2023-05-07 00:00:00 Completed [facility] DTAP 2023-05-07 00:00:00 Completed [facility] HIB 4 Dose Schedule 2023-05-07 00:00:00 Completed [facility] HEPATITIS A 2023-05-07 00:00:00 Completed [facility] Hep B, Adol or Pedi Dosage 2023-05-07 00:00:00 Completed [facility] Meningococcal Polysaccharide (groups A, C, Y and W-135) conjugate vaccine (MCV4P) 2023-05-07 00:00:00 Completed [facility] MMR 2023-05-07 00:00:00 Completed [facility] Polio (IPV/OPV) 2023-05-07 00:00:00 Completed [facility] TDAP 2023-05-07 00:00:00 Completed [facility] Varicella (varivax)(chicken pox) 2023-05-07 00:00:00 Completed [facility] Pneumococcal 7 Conjugate, PCV7 (Prevnar7) 2023-05-07 00:00:00 Completed [facility] Influenza Virus Vaccine Quad .5 mL IM 6+ MO (FLUZONE/FLULAVAL/FLU ARIX) 2023-05-07 00:00:00 Completed [facility] Meningococcal B, Recombinant 2023-05-07 00:00:00 Completed [facility] Meningococcal B, OMV 2023-05-07 00:00:00 Completed [facility] SARS-COV-2 COVID-19 PFIZER VACCINE 2023-05-07 00:00:00 Completed [facility] Influenza Virus Vaccine Quad IM, Preserv and ABX Free 6 MO-64 YRS (FLUCELVAX) 2023-05-07 00:00:00 Completed [facility] HPV 2023-05-07 00:00:00 Completed [facility] DTAP 2023-05-07 00:00:00 Completed [facility] HIB 4 Dose Schedule 2023-05-07 00:00:00 Completed [facility] HEPATITIS A 2023-05-07 00:00:00 Completed [facility] Hep B, Adol or Pedi Dosage 2023-05-07 00:00:00 Completed [facility] Meningococcal Polysaccharide (groups A, C, Y and W-135) conjugate vaccine (MCV4P) 2023-05-07 00:00:00 Completed [facility] MMR 2023-05-07 00:00:00 Completed [facility] Polio (IPV/OPV) 2023-05-07 00:00:00 Completed [facility] TDAP 2023-05-07 00:00:00 Completed [facility] Varicella (varivax)(chicken pox) 2023-05-07 00:00:00 Completed [facility] Pneumococcal 7 Conjugate, PCV7 (Prevnar7) 2023-05-07 00:00:00 Completed [facility] Influenza Virus Vaccine Quad .5 mL IM 6+ MO (FLUZONE/FLULAVAL/FLU ARIX) 2023-05-07 00:00:00 Completed [facility] Meningococcal B, Recombinant 2023-05-07 00:00:00 Completed [facility] Meningococcal B, OMV 2023-05-07 00:00:00 Completed [facility] SARS-COV-2 COVID-19 PFIZER VACCINE 2023-05-07 00:00:00 Completed [facility] Influenza Virus Vaccine Quad IM, Preserv and ABX Free 6 MO-64 YRS (FLUCELVAX) 2023-05-07 00:00:00 Completed [facility] HPV 2023-05-04 00:00:00 Completed [facility] DTAP 2023-05-04 00:00:00 Completed [facility] HIB 4 Dose Schedule 2023-05-04 00:00:00 Completed [facility] HEPATITIS A 2023-05-04 00:00:00 Completed [facility] Hep B, Adol or Pedi Dosage 2023-05-04 00:00:00 Completed [facility] Meningococcal Polysaccharide (groups A, C, Y and W-135) conjugate vaccine (MCV4P) 2023-05-04 00:00:00 Completed [facility] MMR 2023-05-04 00:00:00 Completed [facility] Polio (IPV/OPV) 2023-05-04 00:00:00 Completed [facility] TDAP 2023-05-04 00:00:00 Completed [facility] Varicella (varivax)(chicken pox) 2023-05-04 00:00:00 Completed [facility] Pneumococcal 7 Conjugate, PCV7 (Prevnar7) 2023-05-04 00:00:00 Completed [facility] Influenza Virus Vaccine Quad .5 mL IM 6+ MO (FLUZONE/FLULAVAL/FLU ARIX) 2023-05-04 00:00:00 Completed [facility] Meningococcal B, Recombinant 2023-05-04 00:00:00 Completed [facility] Meningococcal B, OMV 2023-05-04 00:00:00 Completed [facility] SARS-COV-2 COVID-19 PFIZER VACCINE 2023-05-04 00:00:00 Completed [facility] TDAP 2023-04-23 14:30:00 Completed [facility] Influenza Virus Vaccine Quad .5 mL IM 6+ MO (FLUZONE/FLULAVAL/FLU ARIX) 2023-04-23 14:30:00 Completed [facility] Meningococcal B, Recombinant 2023-04-23 14:30:00 Completed [facility] Meningococcal B, OMV 2023-04-23 14:30:00 Completed [facility] HPV 2023-04-23 14:30:00 Completed [facility] DTAP 2023-04-23 14:30:00 Completed [facility] HIB 4 Dose Schedule 2023-04-23 14:30:00 Completed [facility] HEPATITIS A 2023-04-23 14:30:00 Completed [facility] Hep B, Adol or Pedi Dosage 2023-04-23 14:30:00 Completed [facility] Meningococcal Polysaccharide (groups A, C, Y and W-135) conjugate vaccine (MCV4P) 2023-04-23 14:30:00 Completed [facility] MMR 2023-04-23 14:30:00 Completed [facility] Polio (IPV/OPV) 2023-04-23 14:30:00 Completed [facility] Varicella (varivax)(chicken pox) 2023-04-23 14:30:00 Completed [facility] Pneumococcal 7 Conjugate, PCV7 (Prevnar7) 2023-04-23 14:30:00 Completed [facility] SARS-COV-2 COVID-19 PFIZER VACCINE 2023-04-23 14:30:00 Completed [facility] HPV 2023-04-23 00:00:00 Completed [facility] DTAP 2023-04-23 00:00:00 Completed [facility] HIB 4 Dose Schedule 2023-04-23 00:00:00 Completed [facility] HEPATITIS A 2023-04-23 00:00:00 Completed [facility] Hep B, Adol or Pedi Dosage 2023-04-23 00:00:00 Completed [facility] Meningococcal Polysaccharide (groups A, C, Y and W-135) conjugate vaccine (MCV4P) 2023-04-23 00:00:00 Completed [facility] MMR 2023-04-23 00:00:00 Completed [facility] Polio (IPV/OPV) 2023-04-23 00:00:00 Completed [facility] TDAP 2023-04-23 00:00:00 Completed [facility] Varicella (varivax)(chicken pox) 2023-04-23 00:00:00 Completed [facility] Pneumococcal 7 Conjugate, PCV7 (Prevnar7) 2023-04-23 00:00:00 Completed [facility] Influenza Virus Vaccine Quad .5 mL IM 6+ MO (FLUZONE/FLULAVAL/FLU ARIX) 2023-04-23 00:00:00 Completed [facility] Meningococcal B, Recombinant 2023-04-23 00:00:00 Completed [facility] Meningococcal B, OMV 2023-04-23 00:00:00 Completed [facility] SARS-COV-2 COVID-19 PFIZER VACCINE 2023-04-23 00:00:00 Completed [facility] SARS-COV-2 COVID-19 PFIZER VACCINE 2020-07-06 00:00:00 Completed [facility] SARS-COV-2 COVID-19 PFIZER VACCINE 2020-07-06 00:00:00 Completed [facility] SARS-COV-2 COVID-19 PFIZER VACCINE 2020-07-06 00:00:00 Completed [facility] SARS-COV-2 COVID-19 PFIZER VACCINE 2020-07-06 00:00:00 Completed [facility] SARS-COV-2 COVID-19 PFIZER VACCINE 2020-07-06 00:00:00 Completed [facility] SARS-COV-2 COVID-19 PFIZER VACCINE 2020-07-06 00:00:00 Completed [facility] SARS-COV-2 COVID-19 PFIZER VACCINE 2020-07-06 00:00:00 Completed [facility] SARS-COV-2 COVID-19 PFIZER VACCINE 2020-07-06 00:00:00 Completed [facility] SARS-COV-2 COVID-19 PFIZER VACCINE 2020-07-06 00:00:00 Completed [facility] SARS-COV-2 COVID-19 PFIZER VACCINE 2020-07-06 00:00:00 Completed [facility] SARS-COV-2 COVID-19 PFIZER VACCINE 2020-07-06 00:00:00 Completed [facility] SARS-COV-2 COVID-19 PFIZER VACCINE 2020-07-06 00:00:00 Completed [facility] SARS-COV-2 COVID-19 PFIZER VACCINE 2020-07-06 00:00:00 Completed [facility] SARS-COV-2 COVID-19 PFIZER VACCINE 2020-07-06 00:00:00 Completed [facility] SARS-COV-2 COVID-19 PFIZER VACCINE 2020-07-06 00:00:00 Completed [facility] SARS-COV-2 COVID-19 PFIZER VACCINE 2020-07-06 00:00:00 Completed [facility] SARS-COV-2 COVID-19 PFIZER VACCINE 2020-07-06 00:00:00 Completed [facility] SARS-COV-2 COVID-19 PFIZER VACCINE 2020-07-06 00:00:00 Completed [facility] SARS-COV-2 COVID-19 PFIZER VACCINE 2020-07-06 00:00:00 Completed [facility] SARS-COV-2 COVID-19 PFIZER VACCINE 2020-07-06 00:00:00 Completed [facility] SARS-COV-2 COVID-19 PFIZER VACCINE 2020-07-06 00:00:00 Completed [facility] SARS-COV-2 COVID-19 PFIZER VACCINE 2020-07-06 00:00:00 Completed [facility] SARS-COV-2 COVID-19 PFIZER VACCINE 2020-07-06 00:00:00 Completed [facility] SARS-COV-2 COVID-19 PFIZER VACCINE 2020-07-06 00:00:00 Completed [facility] SARS-COV-2 COVID-19 PFIZER VACCINE 2020-07-06 00:00:00 Completed [facility] SARS-COV-2 COVID-19 PFIZER VACCINE 2020-07-06 00:00:00 Completed [facility] SARS-COV-2 COVID-19 PFIZER VACCINE 2020-07-06 00:00:00 Completed [facility] SARS-COV-2 COVID-19 PFIZER VACCINE 2020-07-06 00:00:00 Completed [facility] SARS-COV-2 COVID-19 PFIZER VACCINE 2020-07-06 00:00:00 Completed [facility] SARS-COV-2 COVID-19 PFIZER VACCINE 2020-07-06 00:00:00 Completed [facility] SARS-COV-2 COVID-19 PFIZER VACCINE 2020-06-15 00:00:00 Completed [facility] SARS-COV-2 COVID-19 PFIZER VACCINE 2020-06-15 00:00:00 Completed [facility] SARS-COV-2 COVID-19 PFIZER VACCINE 2020-06-15 00:00:00 Completed [facility] SARS-COV-2 COVID-19 PFIZER VACCINE 2020-06-15 00:00:00 Completed [facility] SARS-COV-2 COVID-19 PFIZER VACCINE 2020-06-15 00:00:00 Completed [facility] SARS-COV-2 COVID-19 PFIZER VACCINE 2020-06-15 00:00:00 Completed [facility] SARS-COV-2 COVID-19 PFIZER VACCINE 2020-06-15 00:00:00 Completed [facility] SARS-COV-2 COVID-19 PFIZER VACCINE 2020-06-15 00:00:00 Completed [facility] SARS-COV-2 COVID-19 PFIZER VACCINE 2020-06-15 00:00:00 Completed [facility] SARS-COV-2 COVID-19 PFIZER VACCINE 2020-06-15 00:00:00 Completed [facility] SARS-COV-2 COVID-19 PFIZER VACCINE 2020-06-15 00:00:00 Completed [facility] SARS-COV-2 COVID-19 PFIZER VACCINE 2020-06-15 00:00:00 Completed [facility] SARS-COV-2 COVID-19 PFIZER VACCINE 2020-06-15 00:00:00 Completed [facility] SARS-COV-2 COVID-19 PFIZER VACCINE 2020-06-15 00:00:00 Completed [facility] SARS-COV-2 COVID-19 PFIZER VACCINE 2020-06-15 00:00:00 Completed [facility] SARS-COV-2 COVID-19 PFIZER VACCINE 2020-06-15 00:00:00 Completed [facility] SARS-COV-2 COVID-19 PFIZER VACCINE 2020-06-15 00:00:00 Completed [facility] SARS-COV-2 COVID-19 PFIZER VACCINE 2020-06-15 00:00:00 Completed [facility] SARS-COV-2 COVID-19 PFIZER VACCINE 2020-06-15 00:00:00 Completed [facility] SARS-COV-2 COVID-19 PFIZER VACCINE 2020-06-15 00:00:00 Completed [facility] SARS-COV-2 COVID-19 PFIZER VACCINE 2020-06-15 00:00:00 Completed [facility] SARS-COV-2 COVID-19 PFIZER VACCINE 2020-06-15 00:00:00 Completed [facility] SARS-COV-2 COVID-19 PFIZER VACCINE 2020-06-15 00:00:00 Completed [facility] SARS-COV-2 COVID-19 PFIZER VACCINE 2020-06-15 00:00:00 Completed [facility] SARS-COV-2 COVID-19 PFIZER VACCINE 2020-06-15 00:00:00 Completed [facility] SARS-COV-2 COVID-19 PFIZER VACCINE 2020-06-15 00:00:00 Completed [facility] SARS-COV-2 COVID-19 PFIZER VACCINE 2020-06-15 00:00:00 Completed [facility] SARS-COV-2 COVID-19 PFIZER VACCINE 2020-06-15 00:00:00 Completed [facility] SARS-COV-2 COVID-19 PFIZER VACCINE 2020-06-15 00:00:00 Completed [facility] SARS-COV-2 COVID-19 PFIZER VACCINE 2020-06-15 00:00:00 Completed [facility] Influenza Virus Vaccine Quad .5 mL IM 6+ MO (FLUZONE/FLULAVAL/FLU ARIX) 2020-05-03 00:00:00 Completed Meningococcal B, OMV 2020-04-16 00:00:00 Completed [facility] Meningococcal B, OMV 2020-04-16 00:00:00 Completed [facility] Meningococcal B, OMV 2020-04-16 00:00:00 Completed [facility] Meningococcal B, OMV 2020-04-16 00:00:00 Completed [facility] Meningococcal B, OMV 2020-04-16 00:00:00 Completed [facility] Meningococcal B, OMV 2020-04-16 00:00:00 Completed [facility] Meningococcal B, OMV 2020-04-16 00:00:00 Completed [facility] Meningococcal B, OMV 2020-04-16 00:00:00 Completed [facility] Meningococcal B, OMV 2020-04-16 00:00:00 Completed [facility] Meningococcal B, OMV 2020-04-16 00:00:00 Completed [facility] Meningococcal B, OMV 2020-04-16 00:00:00 Completed [facility] Meningococcal B, OMV 2020-04-16 00:00:00 Completed [facility] Meningococcal B, OMV 2020-04-16 00:00:00 Completed [facility] Meningococcal B, OMV 2020-04-16 00:00:00 Completed [facility] Meningococcal B, OMV 2020-04-16 00:00:00 Completed [facility] Meningococcal B, OMV 2020-04-16 00:00:00 Completed [facility] Meningococcal B, OMV 2020-04-16 00:00:00 Completed [facility] Meningococcal B, OMV 2020-04-16 00:00:00 Completed [facility] Meningococcal B, OMV 2020-04-16 00:00:00 Completed [facility] Meningococcal B, OMV 2020-04-16 00:00:00 Completed [facility] Meningococcal B, OMV 2020-04-16 00:00:00 Completed [facility] Meningococcal B, OMV 2020-04-16 00:00:00 Completed [facility] Meningococcal B, OMV 2020-04-16 00:00:00 Completed [facility] Meningococcal B, OMV 2020-04-16 00:00:00 Completed [facility] Meningococcal B, OMV 2020-04-16 00:00:00 Completed [facility] Meningococcal B, OMV 2020-04-16 00:00:00 Completed [facility] Meningococcal B, OMV 2020-04-16 00:00:00 Completed [facility] Meningococcal B, OMV 2020-04-16 00:00:00 Completed [facility] Meningococcal B, OMV 2020-04-16 00:00:00 Completed [facility] Meningococcal B, OMV 2020-04-16 00:00:00 Completed [facility] Meningococcal B, OMV 2020-04-16 00:00:00 Completed [facility] Meningococcal B, OMV 2020-04-16 00:00:00 Completed [facility] Meningococcal B, OMV 2020-04-16 00:00:00 Completed [facility] Meningococcal B, OMV 2020-04-16 00:00:00 Completed [facility] Meningococcal Polysaccharide (groups A, C, Y and W-135) conjugate vaccine (MCV4P) 2018-10-30 00:00:00 Completed Meningococcal Polysaccharide (groups A, C, Y and W-135) conjugate vaccine (MCV4P) 2018-10-07 00:00:00 Completed [facility] Meningococcal B, Recombinant 2018-10-07 00:00:00 Completed [facility] Meningococcal Polysaccharide (groups A, C, Y and W-135) conjugate vaccine (MCV4P) 2018-10-07 00:00:00 Completed [facility] Meningococcal B, Recombinant 2018-10-07 00:00:00 Completed [facility] Meningococcal Polysaccharide (groups A, C, Y and W-135) conjugate vaccine (MCV4P) 2018-10-07 00:00:00 Completed [facility] Meningococcal B, Recombinant 2018-10-07 00:00:00 Completed [facility] Meningococcal Polysaccharide (groups A, C, Y and W-135) conjugate vaccine (MCV4P) 2018-10-07 00:00:00 Completed [facility] Meningococcal B, Recombinant 2018-10-07 00:00:00 Completed [facility] Meningococcal Polysaccharide (groups A, C, Y and W-135) conjugate vaccine (MCV4P) 2018-10-07 00:00:00 Completed [facility] Meningococcal B, Recombinant 2018-10-07 00:00:00 Completed [facility] Meningococcal Polysaccharide (groups A, C, Y and W-135) conjugate vaccine (MCV4P) 2018-10-07 00:00:00 Completed [facility] Meningococcal B, Recombinant 2018-10-07 00:00:00 Completed [facility] Meningococcal Polysaccharide (groups A, C, Y and W-135) conjugate vaccine (MCV4P) 2018-10-07 00:00:00 Completed [facility] Meningococcal B, Recombinant 2018-10-07 00:00:00 Completed [facility] Meningococcal Polysaccharide (groups A, C, Y and W-135) conjugate vaccine (MCV4P) 2018-10-07 00:00:00 Completed [facility] Meningococcal B, Recombinant 2018-10-07 00:00:00 Completed [facility] Meningococcal Polysaccharide (groups A, C, Y and W-135) conjugate vaccine (MCV4P) 2018-10-07 00:00:00 Completed [facility] Meningococcal B, Recombinant 2018-10-07 00:00:00 Completed [facility] Meningococcal Polysaccharide (groups A, C, Y and W-135) conjugate vaccine (MCV4P) 2018-10-07 00:00:00 Completed [facility] Meningococcal B, Recombinant 2018-10-07 00:00:00 Completed [facility] Meningococcal Polysaccharide (groups A, C, Y and W-135) conjugate vaccine (MCV4P) 2018-10-07 00:00:00 Completed [facility] Meningococcal B, Recombinant 2018-10-07 00:00:00 Completed [facility] Meningococcal Polysaccharide (groups A, C, Y and W-135) conjugate vaccine (MCV4P) 2018-10-07 00:00:00 Completed [facility] Meningococcal B, Recombinant 2018-10-07 00:00:00 Completed [facility] Meningococcal Polysaccharide (groups A, C, Y and W-135) conjugate vaccine (MCV4P) 2018-10-07 00:00:00 Completed [facility] Meningococcal Polysaccharide (groups A, C, Y and W-135) conjugate vaccine (MCV4P) 2018-10-07 00:00:00 Completed [facility] Meningococcal B, Recombinant 2018-10-07 00:00:00 Completed [facility] Meningococcal B, Recombinant 2018-10-07 00:00:00 Completed [facility] Meningococcal Polysaccharide (groups A, C, Y and W-135) conjugate vaccine (MCV4P) 2018-10-07 00:00:00 Completed [facility] Meningococcal B, Recombinant 2018-10-07 00:00:00 Completed [facility] Meningococcal Polysaccharide (groups A, C, Y and W-135) conjugate vaccine (MCV4P) 2018-10-07 00:00:00 Completed [facility] Meningococcal B, Recombinant 2018-10-07 00:00:00 Completed [facility] Meningococcal Polysaccharide (groups A, C, Y and W-135) conjugate vaccine (MCV4P) 2018-10-07 00:00:00 Completed [facility] Meningococcal B, Recombinant 2018-10-07 00:00:00 Completed [facility] Meningococcal Polysaccharide (groups A, C, Y and W-135) conjugate vaccine (MCV4P) 2018-10-07 00:00:00 Completed [facility] Meningococcal B, Recombinant 2018-10-07 00:00:00 Completed [facility] Meningococcal Polysaccharide (groups A, C, Y and W-135) conjugate vaccine (MCV4P) 2018-10-07 00:00:00 Completed [facility] Meningococcal B, Recombinant 2018-10-07 00:00:00 Completed [facility] Meningococcal Polysaccharide (groups A, C, Y and W-135) conjugate vaccine (MCV4P) 2018-10-07 00:00:00 Completed [facility] Meningococcal B, Recombinant 2018-10-07 00:00:00 Completed [facility] Meningococcal Polysaccharide (groups A, C, Y and W-135) conjugate vaccine (MCV4P) 2018-10-07 00:00:00 Completed [facility] Meningococcal B, Recombinant 2018-10-07 00:00:00 Completed [facility] Meningococcal Polysaccharide (groups A, C, Y and W-135) conjugate vaccine (MCV4P) 2018-10-07 00:00:00 Completed [facility] Meningococcal B, Recombinant 2018-10-07 00:00:00 Completed [facility] Meningococcal Polysaccharide (groups A, C, Y and W-135) conjugate vaccine (MCV4P) 2018-10-07 00:00:00 Completed [facility] Meningococcal B, Recombinant 2018-10-07 00:00:00 Completed [facility] Meningococcal Polysaccharide (groups A, C, Y and W-135) conjugate vaccine (MCV4P) 2018-10-07 00:00:00 Completed [facility] Meningococcal B, Recombinant 2018-10-07 00:00:00 Completed [facility] Meningococcal Polysaccharide (groups A, C, Y and W-135) conjugate vaccine (MCV4P) 2018-10-07 00:00:00 Completed [facility] Meningococcal B, Recombinant 2018-10-07 00:00:00 Completed [facility] Meningococcal Polysaccharide (groups A, C, Y and W-135) conjugate vaccine (MCV4P) 2018-10-07 00:00:00 Completed [facility] Meningococcal B, Recombinant 2018-10-07 00:00:00 Completed [facility] Meningococcal Polysaccharide (groups A, C, Y and W-135) conjugate vaccine (MCV4P) 2018-10-07 00:00:00 Completed [facility] Meningococcal B, Recombinant 2018-10-07 00:00:00 Completed [facility] Meningococcal Polysaccharide (groups A, C, Y and W-135) conjugate vaccine (MCV4P) 2018-10-07 00:00:00 Completed [facility] Meningococcal B, Recombinant 2018-10-07 00:00:00 Completed [facility] Meningococcal Polysaccharide (groups A, C, Y and W-135) conjugate vaccine (MCV4P) 2018-10-07 00:00:00 Completed [facility] Meningococcal B, Recombinant 2018-10-07 00:00:00 Completed [facility] Meningococcal Polysaccharide (groups A, C, Y and W-135) conjugate vaccine (MCV4P) 2018-10-07 00:00:00 Completed [facility] Meningococcal B, Recombinant 2018-10-07 00:00:00 Completed [facility] Meningococcal Polysaccharide (groups A, C, Y and W-135) conjugate vaccine (MCV4P) 2018-10-07 00:00:00 Completed [facility] Meningococcal B, Recombinant 2018-10-07 00:00:00 Completed [facility] Meningococcal Polysaccharide (groups A, C, Y and W-135) conjugate vaccine (MCV4P) 2018-10-07 00:00:00 Completed [facility] Meningococcal B, Recombinant 2018-10-07 00:00:00 Completed [facility] Meningococcal Polysaccharide (groups A, C, Y and W-135) conjugate vaccine (MCV4P) 2018-10-07 00:00:00 Completed [facility] Meningococcal B, Recombinant 2018-10-07 00:00:00 Completed [facility] Meningococcal Polysaccharide (groups A, C, Y and W-135) conjugate vaccine (MCV4P) 2018-10-07 00:00:00 Completed [facility] Meningococcal B, Recombinant 2018-10-07 00:00:00 Completed [facility] Meningococcal Polysaccharide (groups A, C, Y and W-135) conjugate vaccine (MCV4P) 2018-10-07 00:00:00 Completed [facility] Meningococcal B, Recombinant 2018-10-07 00:00:00 Completed [facility] Meningococcal Polysaccharide (groups A, C, Y and W-135) conjugate vaccine (MCV4P) 2018-10-07 00:00:00 Completed [facility] Meningococcal B, Recombinant 2018-10-07 00:00:00 Completed [facility] Meningococcal Polysaccharide (groups A, C, Y and W-135) conjugate vaccine (MCV4P) 2018-10-07 00:00:00 Completed [facility] Meningococcal B, Recombinant 2018-10-07 00:00:00 Completed [facility] Meningococcal Polysaccharide (groups A, C, Y and W-135) conjugate vaccine (MCV4P) 2018-10-07 00:00:00 Completed [facility] Meningococcal B, Recombinant 2018-10-07 00:00:00 Completed [facility] Meningococcal Polysaccharide (groups A, C, Y and W-135) conjugate vaccine (MCV4P) 2018-10-07 00:00:00 Completed [facility] Meningococcal B, Recombinant 2018-10-07 00:00:00 Completed [facility] Meningococcal Polysaccharide (groups A, C, Y and W-135) conjugate vaccine (MCV4P) 2018-10-07 00:00:00 Completed [facility] Meningococcal B, Recombinant 2018-10-07 00:00:00 Completed [facility] Meningococcal Polysaccharide (groups A, C, Y and W-135) conjugate vaccine (MCV4P) 2018-10-07 00:00:00 Completed [facility] Meningococcal B, Recombinant 2018-10-07 00:00:00 Completed [facility] Meningococcal Polysaccharide (groups A, C, Y and W-135) conjugate vaccine (MCV4P) 2018-10-07 00:00:00 Completed [facility] Meningococcal B, Recombinant 2018-10-07 00:00:00 Completed [facility] Meningococcal Polysaccharide (groups A, C, Y and W-135) conjugate vaccine (MCV4P) 2018-10-07 00:00:00 Completed [facility] Meningococcal B, Recombinant 2018-10-07 00:00:00 Completed [facility] Meningococcal Polysaccharide (groups A, C, Y and W-135) conjugate vaccine (MCV4P) 2018-10-07 00:00:00 Completed [facility] Meningococcal B, Recombinant 2018-10-07 00:00:00 Completed [facility] Meningococcal Polysaccharide (groups A, C, Y and W-135) conjugate vaccine (MCV4P) 2018-10-07 00:00:00 Completed [facility] Meningococcal B, Recombinant 2018-10-07 00:00:00 Completed [facility] Meningococcal Polysaccharide (groups A, C, Y and W-135) conjugate vaccine (MCV4P) 2018-10-07 00:00:00 Completed [facility] Meningococcal B, Recombinant 2018-10-07 00:00:00 Completed [facility] Meningococcal Polysaccharide (groups A, C, Y and W-135) conjugate vaccine (MCV4P) 2018-10-07 00:00:00 Completed [facility] Meningococcal B, Recombinant 2018-10-07 00:00:00 Completed [facility] Meningococcal Polysaccharide (groups A, C, Y and W-135) conjugate vaccine (MCV4P) 2018-10-07 00:00:00 Completed [facility] Meningococcal B, Recombinant 2018-10-07 00:00:00 Completed [facility] Meningococcal Polysaccharide (groups A, C, Y and W-135) conjugate vaccine (MCV4P) 2018-10-07 00:00:00 Completed [facility] Meningococcal B, Recombinant 2018-10-07 00:00:00 Completed [facility] Meningococcal Polysaccharide (groups A, C, Y and W-135) conjugate vaccine (MCV4P) 2018-10-07 00:00:00 Completed [facility] Meningococcal B, Recombinant 2018-10-07 00:00:00 Completed [facility] Meningococcal Polysaccharide (groups A, C, Y and W-135) conjugate vaccine (MCV4P) 2018-10-07 00:00:00 Completed [facility] Meningococcal B, Recombinant 2018-10-07 00:00:00 Completed [facility] Meningococcal Polysaccharide (groups A, C, Y and W-135) conjugate vaccine (MCV4P) 2018-10-07 00:00:00 Completed [facility] Meningococcal B, Recombinant 2018-10-07 00:00:00 Completed [facility] Meningococcal Polysaccharide (groups A, C, Y and W-135) conjugate vaccine (MCV4P) 2018-10-07 00:00:00 Completed [facility] Meningococcal B, Recombinant 2018-10-07 00:00:00 Completed [facility] Meningococcal Polysaccharide (groups A, C, Y and W-135) conjugate vaccine (MCV4P) 2018-10-07 00:00:00 Completed [facility] Meningococcal B, Recombinant 2018-10-07 00:00:00 Completed [facility] Meningococcal Polysaccharide (groups A, C, Y and W-135) conjugate vaccine (MCV4P) 2018-10-07 00:00:00 Completed [facility] Meningococcal B, Recombinant 2018-10-07 00:00:00 Completed [facility] Meningococcal Polysaccharide (groups A, C, Y and W-135) conjugate vaccine (MCV4P) 2018-10-07 00:00:00 Completed [facility] Meningococcal B, Recombinant 2018-10-07 00:00:00 Completed [facility] Meningococcal Polysaccharide (groups A, C, Y and W-135) conjugate vaccine (MCV4P) 2018-10-07 00:00:00 Completed [facility] Meningococcal B, Recombinant 2018-10-07 00:00:00 Completed [facility] Meningococcal Polysaccharide (groups A, C, Y and W-135) conjugate vaccine (MCV4P) 2018-10-07 00:00:00 Completed [facility] Meningococcal B, Recombinant 2018-10-07 00:00:00 Completed [facility] Meningococcal Polysaccharide (groups A, C, Y and W-135) conjugate vaccine (MCV4P) 2018-10-07 00:00:00 Completed [facility] Meningococcal B, Recombinant 2018-10-07 00:00:00 Completed [facility] Meningococcal Polysaccharide (groups A, C, Y and W-135) conjugate vaccine (MCV4P) 2018-10-07 00:00:00 Completed [facility] Meningococcal B, Recombinant 2018-10-07 00:00:00 Completed [facility] Meningococcal Polysaccharide (groups A, C, Y and W-135) conjugate vaccine (MCV4P) 2018-10-07 00:00:00 Completed [facility] Meningococcal B, Recombinant 2018-10-07 00:00:00 Completed [facility] Meningococcal Polysaccharide (groups A, C, Y and W-135) conjugate vaccine (MCV4P) 2018-10-07 00:00:00 Completed [facility] Meningococcal B, Recombinant 2018-10-07 00:00:00 Completed [facility] Meningococcal Polysaccharide (groups A, C, Y and W-135) conjugate vaccine (MCV4P) 2018-10-07 00:00:00 Completed [facility] Meningococcal B, Recombinant 2018-10-07 00:00:00 Completed [facility] Meningococcal Polysaccharide (groups A, C, Y and W-135) conjugate vaccine (MCV4P) 2018-10-07 00:00:00 Completed [facility] Meningococcal B, Recombinant 2018-10-07 00:00:00 Completed [facility] Meningococcal Polysaccharide (groups A, C, Y and W-135) conjugate vaccine (MCV4P) 2018-10-07 00:00:00 Completed [facility] Meningococcal B, Recombinant 2018-10-07 00:00:00 Completed [facility] Meningococcal Polysaccharide (groups A, C, Y and W-135) conjugate vaccine (MCV4P) 2018-10-07 00:00:00 Completed [facility] Meningococcal B, Recombinant 2018-10-07 00:00:00 Completed [facility] Meningococcal Polysaccharide (groups A, C, Y and W-135) conjugate vaccine (MCV4P) 2018-10-07 00:00:00 Completed [facility] Meningococcal B, Recombinant 2018-10-07 00:00:00 Completed [facility] Meningococcal Polysaccharide (groups A, C, Y and W-135) conjugate vaccine (MCV4P) 2018-10-07 00:00:00 Completed [facility] Meningococcal B, Recombinant 2018-10-07 00:00:00 Completed [facility] Meningococcal Polysaccharide (groups A, C, Y and W-135) conjugate vaccine (MCV4P) 2018-10-07 00:00:00 Completed [facility] Meningococcal B, Recombinant 2018-10-07 00:00:00 Completed [facility] Meningococcal Polysaccharide (groups A, C, Y and W-135) conjugate vaccine (MCV4P) 2018-10-07 00:00:00 Completed [facility] Meningococcal B, Recombinant 2018-10-07 00:00:00 Completed [facility] Meningococcal Polysaccharide (groups A, C, Y and W-135) conjugate vaccine (MCV4P) 2018-10-07 00:00:00 Completed [facility] Meningococcal B, Recombinant 2018-10-07 00:00:00 Completed [facility] Meningococcal Polysaccharide (groups A, C, Y and W-135) conjugate vaccine (MCV4P) 2018-10-07 00:00:00 Completed [facility] Meningococcal B, Recombinant 2018-10-07 00:00:00 Completed [facility] Meningococcal Polysaccharide (groups A, C, Y and W-135) conjugate vaccine (MCV4P) 2018-10-07 00:00:00 Completed [facility] Meningococcal B, Recombinant 2018-10-07 00:00:00 Completed [facility] Influenza Virus Vaccine Quad .5 mL IM 6+ MO 2018-04-06 00:00:00 Completed [facility] Influenza Virus Vaccine Quad .5 mL IM 6+ MO 2018-04-06 00:00:00 Completed [facility] Influenza Virus Vaccine Quad .5 mL IM 6+ MO 2018-04-06 00:00:00 Completed [facility] Influenza Virus Vaccine Quad .5 mL IM 6+ MO 2018-04-06 00:00:00 Completed [facility] Influenza Virus Vaccine Quad .5 mL IM 6+ MO 2018-04-06 00:00:00 Completed [facility] Influenza Virus Vaccine Quad .5 mL IM 6+ MO 2018-04-06 00:00:00 Completed [facility] Influenza Virus Vaccine Quad .5 mL IM 6+ MO 2018-04-06 00:00:00 Completed [facility] Influenza Virus Vaccine Quad .5 mL IM 6+ MO 2018-04-06 00:00:00 Completed [facility] Influenza Virus Vaccine Quad .5 mL IM 6+ MO 2018-04-06 00:00:00 Completed [facility] Influenza Virus Vaccine Quad .5 mL IM 6+ MO 2018-04-06 00:00:00 Completed [facility] Influenza Virus Vaccine Quad .5 mL IM 6+ MO 2018-04-06 00:00:00 Completed [facility] Influenza Virus Vaccine Quad .5 mL IM 6+ MO 2018-04-06 00:00:00 Completed [facility] Influenza Virus Vaccine Quad .5 mL IM 6+ MO 2018-04-06 00:00:00 Completed [facility] Influenza Virus Vaccine Quad .5 mL IM 6+ MO 2018-04-06 00:00:00 Completed [facility] Influenza Virus Vaccine Quad .5 mL IM 6+ MO 2018-04-06 00:00:00 Completed [facility] Influenza Virus Vaccine Quad .5 mL IM 6+ MO 2018-04-06 00:00:00 Completed [facility] Influenza Virus Vaccine Quad .5 mL IM 6+ MO 2018-04-06 00:00:00 Completed [facility] Influenza Virus Vaccine Quad .5 mL IM 6+ MO 2018-04-06 00:00:00 Completed [facility] Influenza Virus Vaccine Quad .5 mL IM 6+ MO 2018-04-06 00:00:00 Completed [facility] Influenza Virus Vaccine Quad .5 mL IM 6+ MO 2018-04-06 00:00:00 Completed [facility] Influenza Virus Vaccine Quad .5 mL IM 6+ MO 2018-04-06 00:00:00 Completed [facility] Influenza Virus Vaccine Quad .5 mL IM 6+ MO 2018-04-06 00:00:00 Completed [facility] Influenza Virus Vaccine Quad .5 mL IM 6+ MO 2018-04-06 00:00:00 Completed [facility] Influenza Virus Vaccine Quad .5 mL IM 6+ MO 2018-04-06 00:00:00 Completed [facility] Influenza Virus Vaccine Quad .5 mL IM 6+ MO 2018-04-06 00:00:00 Completed [facility] Influenza Virus Vaccine Quad .5 mL IM 6+ MO 2018-04-06 00:00:00 Completed [facility] Influenza Virus Vaccine Quad .5 mL IM 6+ MO 2018-04-06 00:00:00 Completed [facility] Influenza Virus Vaccine Quad .5 mL IM 6+ MO 2018-04-06 00:00:00 Completed [facility] Influenza Virus Vaccine Quad .5 mL IM 6+ MO 2018-04-06 00:00:00 Completed [facility] Influenza Virus Vaccine Quad .5 mL IM 6+ MO 2018-04-06 00:00:00 Completed [facility] Influenza Virus Vaccine Quad .5 mL IM 6+ MO 2018-04-06 00:00:00 Completed [facility] Influenza Virus Vaccine Quad .5 mL IM 6+ MO 2018-04-06 00:00:00 Completed [facility] Influenza Virus Vaccine Quad .5 mL IM 6+ MO 2018-04-06 00:00:00 Completed [facility] Influenza Virus Vaccine Quad .5 mL IM 6+ MO 2018-04-06 00:00:00 Completed [facility] Influenza Virus Vaccine Quad .5 mL IM 6+ MO 2018-04-06 00:00:00 Completed [facility] Influenza Virus Vaccine Quad .5 mL IM 6+ MO 2018-04-06 00:00:00 Completed [facility] Influenza Virus Vaccine Quad .5 mL IM 6+ MO 2018-04-06 00:00:00 Completed [facility] Influenza Virus Vaccine Quad .5 mL IM 6+ MO 2018-04-06 00:00:00 Completed [facility] Influenza Virus Vaccine Quad .5 mL IM 6+ MO 2018-04-06 00:00:00 Completed [facility] Influenza Virus Vaccine Quad .5 mL IM 6+ MO 2018-04-06 00:00:00 Completed [facility] Influenza Virus Vaccine Quad .5 mL IM 6+ MO 2018-04-06 00:00:00 Completed [facility] Influenza Virus Vaccine Quad .5 mL IM 6+ MO 2018-04-06 00:00:00 Completed [facility] Influenza Virus Vaccine Quad .5 mL IM 6+ MO 2018-04-06 00:00:00 Completed [facility] Influenza Virus Vaccine Quad .5 mL IM 6+ MO 2018-04-06 00:00:00 Completed [facility] Influenza Virus Vaccine Quad .5 mL IM 6+ MO 2018-04-06 00:00:00 Completed [facility] Influenza Virus Vaccine Quad .5 mL IM 6+ MO 2018-04-06 00:00:00 Completed [facility] Influenza Virus Vaccine Quad .5 mL IM 6+ MO 2018-04-06 00:00:00 Completed [facility] Influenza Virus Vaccine Quad .5 mL IM 6+ MO 2018-04-06 00:00:00 Completed [facility] Influenza Virus Vaccine Quad .5 mL IM 6+ MO 2018-04-06 00:00:00 Completed [facility] Influenza Virus Vaccine Quad .5 mL IM 6+ MO 2018-04-06 00:00:00 Completed [facility] Influenza Virus Vaccine Quad .5 mL IM 6+ MO 2018-04-06 00:00:00 Completed [facility] Influenza Virus Vaccine Quad .5 mL IM 6+ MO 2018-04-06 00:00:00 Completed [facility] Influenza Virus Vaccine Quad .5 mL IM 6+ MO 2018-04-06 00:00:00 Completed [facility] Influenza Virus Vaccine Quad .5 mL IM 6+ MO 2018-04-06 00:00:00 Completed [facility] Influenza Virus Vaccine Quad .5 mL IM 6+ MO 2018-04-06 00:00:00 Completed [facility] Influenza Virus Vaccine Quad .5 mL IM 6+ MO 2018-04-06 00:00:00 Completed [facility] Influenza Virus Vaccine Quad .5 mL IM 6+ MO 2018-04-06 00:00:00 Completed [facility] Influenza Virus Vaccine Quad .5 mL IM 6+ MO 2018-04-06 00:00:00 Completed [facility] Influenza Virus Vaccine Quad .5 mL IM 6+ MO 2018-04-06 00:00:00 Completed [facility] Influenza Virus Vaccine Quad .5 mL IM 6+ MO 2018-04-06 00:00:00 Completed [facility] Influenza Virus Vaccine Quad .5 mL IM 6+ MO (FLUZONE/FLULAVAL/FLU ARIX) 2018-04-06 00:00:00 Completed [facility] Influenza Virus Vaccine Quad .5 mL IM 6+ MO (FLUZONE/FLULAVAL/FLU ARIX) 2018-04-06 00:00:00 Completed [facility] Influenza Virus Vaccine Quad .5 mL IM 6+ MO (FLUZONE/FLULAVAL/FLU ARIX) 2018-04-06 00:00:00 Completed [facility] Influenza Virus Vaccine Quad .5 mL IM 6+ MO 2018-04-06 00:00:00 Completed [facility] Influenza Virus Vaccine Quad .5 mL IM 6+ MO 2018-04-06 00:00:00 Completed [facility] Influenza Virus Vaccine Quad .5 mL IM 6+ MO 2018-04-06 00:00:00 Completed [facility] Influenza Virus Vaccine Quad .5 mL IM 6+ MO 2018-04-06 00:00:00 Completed [facility] Influenza Virus Vaccine Quad .5 mL IM 6+ MO 2018-04-06 00:00:00 Completed [facility] Influenza Virus Vaccine Quad .5 mL IM 6+ MO 2018-04-06 00:00:00 Completed [facility] Influenza Virus Vaccine Quad .5 mL IM 6+ MO 2018-04-06 00:00:00 Completed [facility] Influenza Virus Vaccine Quad .5 mL IM 6+ MO 2018-04-06 00:00:00 Completed [facility] Influenza Virus Vaccine Quad .5 mL IM 6+ MO 2018-04-06 00:00:00 Completed [facility] Influenza Virus Vaccine Quad .5 mL IM 6+ MO 2018-04-06 00:00:00 Completed [facility] Influenza Virus Vaccine Quad .5 mL IM 6+ MO (FLUZONE/FLULAVAL/FLU ARIX) 2014-12-25 00:00:00 Completed Influenza Virus Vaccine Quad .5 mL IM 6+ MO (FLUZONE/FLULAVAL/FLU ARIX) 2014-01-11 00:00:00 Completed Varicella (varivax)(chicken pox) 2013-05-05 00:00:00 Completed [facility] Varicella (varivax)(chicken pox) 2013-05-05 00:00:00 Completed [facility] Varicella (varivax)(chicken pox) 2013-05-05 00:00:00 Completed [facility] Varicella (varivax)(chicken pox) 2013-05-05 00:00:00 Completed [facility] Varicella (varivax)(chicken pox) 2013-05-05 00:00:00 Completed [facility] Varicella (varivax)(chicken pox) 2013-05-05 00:00:00 Completed [facility] Varicella (varivax)(chicken pox) 2013-05-05 00:00:00 Completed [facility] Varicella (varivax)(chicken pox) 2013-05-05 00:00:00 Completed [facility] [facility] Varicella (varivax)(chicken pox) 2013-05-05 00:00:00 Completed [facility] Varicella (varivax)(chicken pox) 2013-05-05 00:00:00 Completed [facility] Varicella (varivax)(chicken pox) 2013-05-05 00:00:00 Completed [facility] Varicella (varivax)(chicken pox) 2013-05-05 00:00:00 Completed [facility] Varicella (varivax)(chicken pox) 2013-05-05 00:00:00 Completed [facility] Varicella (varivax)(chicken pox) 2013-05-05 00:00:00 Completed [facility] Varicella (varivax)(chicken pox) 2013-05-05 00:00:00 Completed [facility] Varicella (varivax)(chicken pox) 2013-05-05 00:00:00 Completed [facility] Varicella (varivax)(chicken pox) 2013-05-05 00:00:00 Completed [facility] Varicella (varivax)(chicken pox) 2013-05-05 00:00:00 Completed [facility] Varicella (varivax)(chicken pox) 2013-05-05 00:00:00 Completed [facility] Varicella (varivax)(chicken pox) 2013-05-05 00:00:00 Completed [facility] Varicella (varivax)(chicken pox) 2013-05-05 00:00:00 Completed [facility] Varicella (varivax)(chicken pox) 2013-05-05 00:00:00 Completed [facility] Varicella (varivax)(chicken pox) 2013-05-05 00:00:00 Completed [facility] Varicella (varivax)(chicken pox) 2013-05-05 00:00:00 Completed [facility] Varicella (varivax)(chicken pox) 2013-05-05 00:00:00 Completed [facility] Varicella (varivax)(chicken pox) 2013-05-05 00:00:00 Completed [facility] Varicella (varivax)(chicken pox) 2013-05-05 00:00:00 Completed [facility] Varicella (varivax)(chicken pox) 2013-05-05 00:00:00 Completed [facility] Varicella (varivax)(chicken pox) 2013-05-05 00:00:00 Completed [facility] Varicella (varivax)(chicken pox) 2013-05-05 00:00:00 Completed [facility] Varicella (varivax)(chicken pox) 2013-05-05 00:00:00 Completed [facility] Varicella (varivax)(chicken pox) 2013-05-05 00:00:00 Completed [facility] Varicella (varivax)(chicken pox) 2013-05-05 00:00:00 Completed [facility] Varicella (varivax)(chicken pox) 2013-05-05 00:00:00 Completed [facility] Varicella (varivax)(chicken pox) 2013-05-05 00:00:00 Completed [facility] Varicella (varivax)(chicken pox) 2013-05-05 00:00:00 Completed [facility] Varicella (varivax)(chicken pox) 2013-05-05 00:00:00 Completed [facility] Varicella (varivax)(chicken pox) 2013-05-05 00:00:00 Completed [facility] Varicella (varivax)(chicken pox) 2013-05-05 00:00:00 Completed [facility] Varicella (varivax)(chicken pox) 2013-05-05 00:00:00 Completed [facility] Varicella (varivax)(chicken pox) 2013-05-05 00:00:00 Completed [facility] Varicella (varivax)(chicken pox) 2013-05-05 00:00:00 Completed [facility] Varicella (varivax)(chicken pox) 2013-05-05 00:00:00 Completed [facility] Varicella (varivax)(chicken pox) 2013-05-05 00:00:00 Completed [facility] Varicella (varivax)(chicken pox) 2013-05-05 00:00:00 Completed [facility] Varicella (varivax)(chicken pox) 2013-05-05 00:00:00 Completed [facility] Varicella (varivax)(chicken pox) 2013-05-05 00:00:00 Completed [facility] Varicella (varivax)(chicken pox) 2013-05-05 00:00:00 Completed [facility] Varicella (varivax)(chicken pox) 2013-05-05 00:00:00 Completed [facility] Varicella (varivax)(chicken pox) 2013-05-05 00:00:00 Completed [facility] Varicella (varivax)(chicken pox) 2013-05-05 00:00:00 Completed [facility] Varicella (varivax)(chicken pox) 2013-05-05 00:00:00 Completed [facility] Varicella (varivax)(chicken pox) 2013-05-05 00:00:00 Completed [facility] Varicella (varivax)(chicken pox) 2013-05-05 00:00:00 Completed [facility] Varicella (varivax)(chicken pox) 2013-05-05 00:00:00 Completed [facility] Varicella (varivax)(chicken pox) 2013-05-05 00:00:00 Completed [facility] Varicella (varivax)(chicken pox) 2013-05-05 00:00:00 Completed [facility] Varicella (varivax)(chicken pox) 2013-05-05 00:00:00 Completed [facility] Varicella (varivax)(chicken pox) 2013-05-05 00:00:00 Completed [facility] Varicella (varivax)(chicken pox) 2013-05-05 00:00:00 Completed [facility] Varicella (varivax)(chicken pox) 2013-05-05 00:00:00 Completed [facility] Varicella (varivax)(chicken pox) 2013-05-05 00:00:00 Completed [facility] Varicella (varivax)(chicken pox) 2013-05-05 00:00:00 Completed [facility] Varicella (varivax)(chicken pox) 2013-05-05 00:00:00 Completed [facility] Varicella (varivax)(chicken pox) 2013-05-05 00:00:00 Completed [facility] Varicella (varivax)(chicken pox) 2013-05-05 00:00:00 Completed [facility] Varicella (varivax)(chicken pox) 2013-05-05 00:00:00 Completed [facility] Varicella (varivax)(chicken pox) 2013-05-05 00:00:00 Completed [facility] Varicella (varivax)(chicken pox) 2013-05-05 00:00:00 Completed [facility] Varicella (varivax)(chicken pox) 2013-05-05 00:00:00 Completed [facility] Varicella (varivax)(chicken pox) 2013-05-05 00:00:00 Completed [facility] Varicella (varivax)(chicken pox) 2013-05-05 00:00:00 Completed [facility] Varicella (varivax)(chicken pox) 2013-05-05 00:00:00 Completed [facility] Meningococcal Polysaccharide (groups A, C, Y and W-135) conjugate vaccine (MCV4P) 2013-04-18 00:00:00 Completed [facility] Tdap 2013-04-18 00:00:00 Completed [facility] Meningococcal Polysaccharide (groups A, C, Y and W-135) conjugate vaccine (MCV4P) 2013-04-18 00:00:00 Completed [facility] Meningococcal Polysaccharide (groups A, C, Y and W-135) conjugate vaccine (MCV4P) 2013-04-18 00:00:00 Completed [facility] Tdap 2013-04-18 00:00:00 Completed [facility] Meningococcal Polysaccharide (groups A, C, Y and W-135) conjugate vaccine (MCV4P) 2013-04-18 00:00:00 Completed [facility] Tdap 2013-04-18 00:00:00 Completed [facility] Tdap 2013-04-18 00:00:00 Completed [facility] Meningococcal Polysaccharide (groups A, C, Y and W-135) conjugate vaccine (MCV4P) 2013-04-18 00:00:00 Completed [facility] Tdap 2013-04-18 00:00:00 Completed [facility] Meningococcal Polysaccharide (groups A, C, Y and W-135) conjugate vaccine (MCV4P) 2013-04-18 00:00:00 Completed [facility] Tdap 2013-04-18 00:00:00 Completed [facility] Meningococcal Polysaccharide (groups A, C, Y and W-135) conjugate vaccine (MCV4P) 2013-04-18 00:00:00 Completed [facility] Tdap 2013-04-18 00:00:00 Completed [facility] Meningococcal Polysaccharide (groups A, C, Y and W-135) conjugate vaccine (MCV4P) 2013-04-18 00:00:00 Completed [facility] Tdap 2013-04-18 00:00:00 Completed [facility] Meningococcal Polysaccharide (groups A, C, Y and W-135) conjugate vaccine (MCV4P) 2013-04-18 00:00:00 Completed [facility] TDAP 2013-04-18 00:00:00 Completed [facility] Meningococcal Polysaccharide (groups A, C, Y and W-135) conjugate vaccine (MCV4P) 2013-04-18 00:00:00 Completed [facility] TDAP 2013-04-18 00:00:00 Completed [facility] Meningococcal Polysaccharide (groups A, C, Y and W-135) conjugate vaccine (MCV4P) 2013-04-18 00:00:00 Completed [facility] Meningococcal Polysaccharide (groups A, C, Y and W-135) conjugate vaccine (MCV4P) 2013-04-18 00:00:00 Completed [facility] TDAP 2013-04-18 00:00:00 Completed [facility] Tdap 2013-04-18 00:00:00 Completed [facility] Meningococcal Polysaccharide (groups A, C, Y and W-135) conjugate vaccine (MCV4P) 2013-04-18 00:00:00 Completed [facility] TDAP 2013-04-18 00:00:00 Completed [facility] Meningococcal Polysaccharide (groups A, C, Y and W-135) conjugate vaccine (MCV4P) 2013-04-18 00:00:00 Completed [facility] TDAP 2013-04-18 00:00:00 Completed [facility] Meningococcal Polysaccharide (groups A, C, Y and W-135) conjugate vaccine (MCV4P) 2013-04-18 00:00:00 Completed [facility] TDAP 2013-04-18 00:00:00 Completed [facility] Meningococcal Polysaccharide (groups A, C, Y and W-135) conjugate vaccine (MCV4P) 2013-04-18 00:00:00 Completed [facility] TDAP 2013-04-18 00:00:00 Completed [facility] Meningococcal Polysaccharide (groups A, C, Y and W-135) conjugate vaccine (MCV4P) 2013-04-18 00:00:00 Completed [facility] TDAP 2013-04-18 00:00:00 Completed [facility] Meningococcal Polysaccharide (groups A, C, Y and W-135) conjugate vaccine (MCV4P) 2013-04-18 00:00:00 Completed [facility] TDAP 2013-04-18 00:00:00 Completed [facility] Meningococcal Polysaccharide (groups A, C, Y and W-135) conjugate vaccine (MCV4P) 2013-04-18 00:00:00 Completed [facility] TDAP 2013-04-18 00:00:00 Completed [facility] Meningococcal Polysaccharide (groups A, C, Y and W-135) conjugate vaccine (MCV4P) 2013-04-18 00:00:00 Completed [facility] TDAP 2013-04-18 00:00:00 Completed [facility] Meningococcal Polysaccharide (groups A, C, Y and W-135) conjugate vaccine (MCV4P) 2013-04-18 00:00:00 Completed [facility] TDAP 2013-04-18 00:00:00 Completed [facility] Meningococcal Polysaccharide (groups A, C, Y and W-135) conjugate vaccine (MCV4P) 2013-04-18 00:00:00 Completed [facility] TDAP 2013-04-18 00:00:00 Completed [facility] Meningococcal Polysaccharide (groups A, C, Y and W-135) conjugate vaccine (MCV4P) 2013-04-18 00:00:00 Completed [facility] TDAP 2013-04-18 00:00:00 Completed [facility] Meningococcal Polysaccharide (groups A, C, Y and W-135) conjugate vaccine (MCV4P) 2013-04-18 00:00:00 Completed [facility] Meningococcal Polysaccharide (groups A, C, Y and W-135) conjugate vaccine (MCV4P) 2013-04-18 00:00:00 Completed [facility] TDAP 2013-04-18 00:00:00 Completed [facility] Tdap 2013-04-18 00:00:00 Completed [facility] Meningococcal Polysaccharide (groups A, C, Y and W-135) conjugate vaccine (MCV4P) 2013-04-18 00:00:00 Completed [facility] TDAP 2013-04-18 00:00:00 Completed [facility] Meningococcal Polysaccharide (groups A, C, Y and W-135) conjugate vaccine (MCV4P) 2013-04-18 00:00:00 Completed [facility] TDAP 2013-04-18 00:00:00 Completed [facility] Meningococcal Polysaccharide (groups A, C, Y and W-135) conjugate vaccine (MCV4P) 2013-04-18 00:00:00 Completed [facility] TDAP 2013-04-18 00:00:00 Completed [facility] Meningococcal Polysaccharide (groups A, C, Y and W-135) conjugate vaccine (MCV4P) 2013-04-18 00:00:00 Completed [facility] Meningococcal Polysaccharide (groups A, C, Y and W-135) conjugate vaccine (MCV4P) 2013-04-18 00:00:00 Completed [facility] TDAP 2013-04-18 00:00:00 Completed [facility] Meningococcal Polysaccharide (groups A, C, Y and W-135) conjugate vaccine (MCV4P) 2013-04-18 00:00:00 Completed [facility] TDAP 2013-04-18 00:00:00 Completed [facility] Tdap 2013-04-18 00:00:00 Completed [facility] Meningococcal Polysaccharide (groups A, C, Y and W-135) conjugate vaccine (MCV4P) 2013-04-18 00:00:00 Completed [facility] TDAP 2013-04-18 00:00:00 Completed [facility] Meningococcal Polysaccharide (groups A, C, Y and W-135) conjugate vaccine (MCV4P) 2013-04-18 00:00:00 Completed [facility] TDAP 2013-04-18 00:00:00 Completed [facility] Meningococcal Polysaccharide (groups A, C, Y and W-135) conjugate vaccine (MCV4P) 2013-04-18 00:00:00 Completed [facility] TDAP 2013-04-18 00:00:00 Completed [facility] Meningococcal Polysaccharide (groups A, C, Y and W-135) conjugate vaccine (MCV4P) 2013-04-18 00:00:00 Completed [facility] TDAP 2013-04-18 00:00:00 Completed [facility] Meningococcal Polysaccharide (groups A, C, Y and W-135) conjugate vaccine (MCV4P) 2013-04-18 00:00:00 Completed [facility] TDAP 2013-04-18 00:00:00 Completed [facility] Meningococcal Polysaccharide (groups A, C, Y and W-135) conjugate vaccine (MCV4P) 2013-04-18 00:00:00 Completed [facility] TDAP 2013-04-18 00:00:00 Completed [facility] Meningococcal Polysaccharide (groups A, C, Y and W-135) conjugate vaccine (MCV4P) 2013-04-18 00:00:00 Completed [facility] TDAP 2013-04-18 00:00:00 Completed [facility] Meningococcal Polysaccharide (groups A, C, Y and W-135) conjugate vaccine (MCV4P) 2013-04-18 00:00:00 Completed [facility] TDAP 2013-04-18 00:00:00 Completed [facility] Meningococcal Polysaccharide (groups A, C, Y and W-135) conjugate vaccine (MCV4P) 2013-04-18 00:00:00 Completed [facility] TDAP 2013-04-18 00:00:00 Completed [facility] Meningococcal Polysaccharide (groups A, C, Y and W-135) conjugate vaccine (MCV4P) 2013-04-18 00:00:00 Completed [facility] TDAP 2013-04-18 00:00:00 Completed [facility] Meningococcal Polysaccharide (groups A, C, Y and W-135) conjugate vaccine (MCV4P) 2013-04-18 00:00:00 Completed [facility] TDAP 2013-04-18 00:00:00 Completed [facility] Meningococcal Polysaccharide (groups A, C, Y and W-135) conjugate vaccine (MCV4P) 2013-04-18 00:00:00 Completed [facility] TDAP 2013-04-18 00:00:00 Completed [facility] Meningococcal Polysaccharide (groups A, C, Y and W-135) conjugate vaccine (MCV4P) 2013-04-18 00:00:00 Completed [facility] TDAP 2013-04-18 00:00:00 Completed [facility] Meningococcal Polysaccharide (groups A, C, Y and W-135) conjugate vaccine (MCV4P) 2013-04-18 00:00:00 Completed [facility] TDAP 2013-04-18 00:00:00 Completed [facility] Meningococcal Polysaccharide (groups A, C, Y and W-135) conjugate vaccine (MCV4P) 2013-04-18 00:00:00 Completed [facility] TDAP 2013-04-18 00:00:00 Completed [facility] Meningococcal Polysaccharide (groups A, C, Y and W-135) conjugate vaccine (MCV4P) 2013-04-18 00:00:00 Completed [facility] TDAP 2013-04-18 00:00:00 Completed [facility] Meningococcal Polysaccharide (groups A, C, Y and W-135) conjugate vaccine (MCV4P) 2013-04-18 00:00:00 Completed [facility] TDAP 2013-04-18 00:00:00 Completed [facility] Meningococcal Polysaccharide (groups A, C, Y and W-135) conjugate vaccine (MCV4P) 2013-04-18 00:00:00 Completed [facility] Tdap 2013-04-18 00:00:00 Completed [facility] Meningococcal Polysaccharide (groups A, C, Y and W-135) conjugate vaccine (MCV4P) 2013-04-18 00:00:00 Completed [facility] TDAP 2013-04-18 00:00:00 Completed [facility] Meningococcal Polysaccharide (groups A, C, Y and W-135) conjugate vaccine (MCV4P) 2013-04-18 00:00:00 Completed [facility] TDAP 2013-04-18 00:00:00 Completed [facility] Meningococcal Polysaccharide (groups A, C, Y and W-135) conjugate vaccine (MCV4P) 2013-04-18 00:00:00 Completed [facility] TDAP 2013-04-18 00:00:00 Completed [facility] Meningococcal Polysaccharide (groups A, C, Y and W-135) conjugate vaccine (MCV4P) 2013-04-18 00:00:00 Completed [facility] TDAP 2013-04-18 00:00:00 Completed [facility] Meningococcal Polysaccharide (groups A, C, Y and W-135) conjugate vaccine (MCV4P) 2013-04-18 00:00:00 Completed [facility] TDAP 2013-04-18 00:00:00 Completed [facility] Meningococcal Polysaccharide (groups A, C, Y and W-135) conjugate vaccine (MCV4P) 2013-04-18 00:00:00 Completed [facility] TDAP 2013-04-18 00:00:00 Completed [facility] Meningococcal Polysaccharide (groups A, C, Y and W-135) conjugate vaccine (MCV4P) 2013-04-18 00:00:00 Completed [facility] Meningococcal Polysaccharide (groups A, C, Y and W-135) conjugate vaccine (MCV4P) 2013-04-18 00:00:00 Completed [facility] TDAP 2013-04-18 00:00:00 Completed [facility] Tdap 2013-04-18 00:00:00 Completed [facility] Meningococcal Polysaccharide (groups A, C, Y and W-135) conjugate vaccine (MCV4P) 2013-04-18 00:00:00 Completed [facility] TDAP 2013-04-18 00:00:00 Completed [facility] Meningococcal Polysaccharide (groups A, C, Y and W-135) conjugate vaccine (MCV4P) 2013-04-18 00:00:00 Completed [facility] TDAP 2013-04-18 00:00:00 Completed [facility] Meningococcal Polysaccharide (groups A, C, Y and W-135) conjugate vaccine (MCV4P) 2013-04-18 00:00:00 Completed [facility] TDAP 2013-04-18 00:00:00 Completed [facility] Meningococcal Polysaccharide (groups A, C, Y and W-135) conjugate vaccine (MCV4P) 2013-04-18 00:00:00 Completed [facility] TDAP 2013-04-18 00:00:00 Completed [facility] Meningococcal Polysaccharide (groups A, C, Y and W-135) conjugate vaccine (MCV4P) 2013-04-18 00:00:00 Completed [facility] TDAP 2013-04-18 00:00:00 Completed [facility] Meningococcal Polysaccharide (groups A, C, Y and W-135) conjugate vaccine (MCV4P) 2013-04-18 00:00:00 Completed [facility] Meningococcal Polysaccharide (groups A, C, Y and W-135) conjugate vaccine (MCV4P) 2013-04-18 00:00:00 Completed [facility] TDAP 2013-04-18 00:00:00 Completed [facility] Tdap 2013-04-18 00:00:00 Completed [facility] Meningococcal Polysaccharide (groups A, C, Y and W-135) conjugate vaccine (MCV4P) 2013-04-18 00:00:00 Completed [facility] Tdap 2013-04-18 00:00:00 Completed [facility] Meningococcal Polysaccharide (groups A, C, Y and W-135) conjugate vaccine (MCV4P) 2013-04-18 00:00:00 Completed [facility] Tdap 2013-04-18 00:00:00 Completed [facility] Meningococcal Polysaccharide (groups A, C, Y and W-135) conjugate vaccine (MCV4P) 2013-04-18 00:00:00 Completed [facility] Tdap 2013-04-18 00:00:00 Completed [facility] Meningococcal Polysaccharide (groups A, C, Y and W-135) conjugate vaccine (MCV4P) 2013-04-18 00:00:00 Completed [facility] Tdap 2013-04-18 00:00:00 Completed [facility] Meningococcal Polysaccharide (groups A, C, Y and W-135) conjugate vaccine (MCV4P) 2013-04-18 00:00:00 Completed [facility] Tdap 2013-04-18 00:00:00 Completed [facility] Meningococcal Polysaccharide (groups A, C, Y and W-135) conjugate vaccine (MCV4P) 2013-04-18 00:00:00 Completed [facility] Tdap 2013-04-18 00:00:00 Completed [facility] Meningococcal Polysaccharide (groups A, C, Y and W-135) conjugate vaccine (MCV4P) 2013-04-18 00:00:00 Completed [facility] Tdap 2013-04-18 00:00:00 Completed [facility] Meningococcal Polysaccharide (groups A, C, Y and W-135) conjugate vaccine (MCV4P) 2013-04-18 00:00:00 Completed [facility] Tdap 2013-04-18 00:00:00 Completed [facility] Meningococcal Polysaccharide (groups A, C, Y and W-135) conjugate vaccine (MCV4P) 2013-04-18 00:00:00 Completed [facility] Tdap 2013-04-18 00:00:00 Completed [facility] Influenza, split virus, trivalent, PF (AFLURIA/FLUARIX/FLUL AVAL/FLUZONE) 2013-02-09 00:00:00 Completed HPV 2012-11-29 00:00:00 Completed [facility] HPV 2012-11-29 00:00:00 Completed [facility] HPV 2012-11-29 00:00:00 Completed [facility] HPV 2012-11-29 00:00:00 Completed [facility] HPV 2012-11-29 00:00:00 Completed [facility] HPV 2012-11-29 00:00:00 Completed [facility] HPV 2012-11-29 00:00:00 Completed [facility] HPV 2012-11-29 00:00:00 Completed [facility] HPV 2012-11-29 00:00:00 Completed [facility] HPV 2012-11-29 00:00:00 Completed [facility] HPV 2012-11-29 00:00:00 Completed [facility] HPV 2012-11-29 00:00:00 Completed [facility] HPV 2012-11-29 00:00:00 Completed [facility] HPV 2012-11-29 00:00:00 Completed [facility] HPV 2012-11-29 00:00:00 Completed [facility] HPV 2012-11-29 00:00:00 Completed [facility] HPV 2012-11-29 00:00:00 Completed [facility] HPV 2012-11-29 00:00:00 Completed [facility] [facility] HPV 2012-11-29 00:00:00 Completed [facility] HPV 2012-11-29 00:00:00 Completed [facility] HPV 2012-11-29 00:00:00 Completed [facility] HPV 2012-11-29 00:00:00 Completed [facility] HPV 2012-11-29 00:00:00 Completed [facility] HPV 2012-11-29 00:00:00 Completed [facility] HPV 2012-11-29 00:00:00 Completed [facility] HPV 2012-11-29 00:00:00 Completed [facility] HPV 2012-11-29 00:00:00 Completed [facility] HPV 2012-11-29 00:00:00 Completed [facility] HPV 2012-11-29 00:00:00 Completed [facility] HPV 2012-11-29 00:00:00 Completed [facility] HPV 2012-11-29 00:00:00 Completed [facility] HPV 2012-11-29 00:00:00 Completed [facility] HPV 2012-11-29 00:00:00 Completed [facility] HPV 2012-11-29 00:00:00 Completed [facility] HPV 2012-11-29 00:00:00 Completed [facility] HPV 2012-11-29 00:00:00 Completed [facility] HPV 2012-11-29 00:00:00 Completed [facility] HPV 2012-11-29 00:00:00 Completed [facility] HPV 2012-11-29 00:00:00 Completed [facility] HPV 2012-11-29 00:00:00 Completed [facility] HPV 2012-11-29 00:00:00 Completed [facility] HPV 2012-11-29 00:00:00 Completed [facility] HPV 2012-11-29 00:00:00 Completed [facility] HPV 2012-11-29 00:00:00 Completed [facility] HPV 2012-11-29 00:00:00 Completed [facility] HPV 2012-11-29 00:00:00 Completed [facility] HPV 2012-11-29 00:00:00 Completed [facility] HPV 2012-11-29 00:00:00 Completed [facility] HPV 2012-11-29 00:00:00 Completed [facility] HPV 2012-11-29 00:00:00 Completed [facility] HPV 2012-11-29 00:00:00 Completed [facility] HPV 2012-11-29 00:00:00 Completed [facility] HPV 2012-11-29 00:00:00 Completed [facility] HPV 2012-11-29 00:00:00 Completed [facility] HPV 2012-11-29 00:00:00 Completed [facility] HPV 2012-11-29 00:00:00 Completed [facility] HPV 2012-11-29 00:00:00 Completed [facility] HPV 2012-11-29 00:00:00 Completed [facility] HPV 2012-11-29 00:00:00 Completed [facility] HPV 2012-11-29 00:00:00 Completed [facility] HPV 2012-11-29 00:00:00 Completed [facility] HPV 2012-11-29 00:00:00 Completed [facility] HPV 2012-11-29 00:00:00 Completed [facility] HPV 2012-11-29 00:00:00 Completed [facility] HPV 2012-11-29 00:00:00 Completed [facility] HPV 2012-11-29 00:00:00 Completed [facility] HPV 2012-11-29 00:00:00 Completed [facility] HPV 2012-11-29 00:00:00 Completed [facility] HPV 2012-11-29 00:00:00 Completed [facility] HPV 2012-11-29 00:00:00 Completed [facility] HPV 2012-11-29 00:00:00 Completed [facility] HPV 2012-11-29 00:00:00 Completed [facility] HPV 2012-11-29 00:00:00 Completed [facility] HPV 2012-07-09 00:00:00 Completed [facility] HPV 2012-07-09 00:00:00 Completed [facility] HPV 2012-07-09 00:00:00 Completed [facility] HPV 2012-07-09 00:00:00 Completed [facility] HPV 2012-07-09 00:00:00 Completed [facility] HPV 2012-07-09 00:00:00 Completed [facility] HPV 2012-07-09 00:00:00 Completed [facility] HPV 2012-07-09 00:00:00 Completed [facility] HPV 2012-07-09 00:00:00 Completed [facility] HPV 2012-07-09 00:00:00 Completed [facility] HPV 2012-07-09 00:00:00 Completed [facility] HPV 2012-07-09 00:00:00 Completed [facility] HPV 2012-07-09 00:00:00 Completed [facility] HPV 2012-07-09 00:00:00 Completed [facility] HPV 2012-07-09 00:00:00 Completed [facility] HPV 2012-07-09 00:00:00 Completed [facility] HPV 2012-07-09 00:00:00 Completed [facility] HPV 2012-07-09 00:00:00 Completed [facility] HPV 2012-07-09 00:00:00 Completed [facility] HPV 2012-07-09 00:00:00 Completed [facility] HPV 2012-07-09 00:00:00 Completed [facility] HPV 2012-07-09 00:00:00 Completed [facility] HPV 2012-07-09 00:00:00 Completed [facility] HPV 2012-07-09 00:00:00 Completed [facility] HPV 2012-07-09 00:00:00 Completed [facility] HPV 2012-07-09 00:00:00 Completed [facility] HPV 2012-07-09 00:00:00 Completed [facility] HPV 2012-07-09 00:00:00 Completed [facility] HPV 2012-07-09 00:00:00 Completed [facility] HPV 2012-07-09 00:00:00 Completed [facility] HPV 2012-07-09 00:00:00 Completed [facility] HPV 2012-07-09 00:00:00 Completed [facility] HPV 2012-07-09 00:00:00 Completed [facility] HPV 2012-07-09 00:00:00 Completed [facility] HPV 2012-07-09 00:00:00 Completed [facility] HPV 2012-07-09 00:00:00 Completed [facility] HPV 2012-07-09 00:00:00 Completed [facility] HPV 2012-07-09 00:00:00 Completed [facility] HPV 2012-07-09 00:00:00 Completed [facility] HPV 2012-07-09 00:00:00 Completed [facility] HPV 2012-07-09 00:00:00 Completed [facility] HPV 2012-07-09 00:00:00 Completed [facility] HPV 2012-07-09 00:00:00 Completed [facility] HPV 2012-07-09 00:00:00 Completed [facility] HPV 2012-07-09 00:00:00 Completed [facility] HPV 2012-07-09 00:00:00 Completed [facility] HPV 2012-07-09 00:00:00 Completed [facility] HPV 2012-07-09 00:00:00 Completed [facility] HPV 2012-07-09 00:00:00 Completed [facility] HPV 2012-07-09 00:00:00 Completed [facility] HPV 2012-07-09 00:00:00 Completed [facility] HPV 2012-07-09 00:00:00 Completed [facility] HPV 2012-07-09 00:00:00 Completed [facility] HPV 2012-07-09 00:00:00 Completed [facility] HPV 2012-07-09 00:00:00 Completed [facility] HPV 2012-07-09 00:00:00 Completed [facility] HPV 2012-07-09 00:00:00 Completed [facility] HPV 2012-07-09 00:00:00 Completed [facility] HPV 2012-07-09 00:00:00 Completed [facility] HPV 2012-07-09 00:00:00 Completed [facility] HPV 2012-07-09 00:00:00 Completed [facility] HPV 2012-07-09 00:00:00 Completed [facility] HPV 2012-07-09 00:00:00 Completed [facility] HPV 2012-07-09 00:00:00 Completed [facility] HPV 2012-07-09 00:00:00 Completed [facility] HPV 2012-07-09 00:00:00 Completed [facility] HPV 2012-07-09 00:00:00 Completed [facility] HPV 2012-07-09 00:00:00 Completed [facility] HPV 2012-07-09 00:00:00 Completed [facility] HPV 2012-07-09 00:00:00 Completed [facility] HPV 2012-07-09 00:00:00 Completed [facility] HPV 2012-07-09 00:00:00 Completed [facility] HPV 2012-07-09 00:00:00 Completed [facility] HPV 2012-07-09 00:00:00 Completed [facility] Influenza, split virus, trivalent, PF (AFLURIA/FLUARIX/FLUL AVAL/FLUZONE) 2012-01-06 00:00:00 Completed HPV 2011-04-07 00:00:00 Completed [facility] HPV 2011-04-07 00:00:00 Completed [facility] HPV 2011-04-07 00:00:00 Completed [facility] HPV 2011-04-07 00:00:00 Completed [facility] HPV 2011-04-07 00:00:00 Completed [facility] HPV 2011-04-07 00:00:00 Completed [facility] HPV 2011-04-07 00:00:00 Completed [facility] HPV 2011-04-07 00:00:00 Completed [facility] HPV 2011-04-07 00:00:00 Completed [facility] HPV 2011-04-07 00:00:00 Completed [facility] HPV 2011-04-07 00:00:00 Completed [facility] HPV 2011-04-07 00:00:00 Completed [facility] HPV 2011-04-07 00:00:00 Completed [facility] HPV 2011-04-07 00:00:00 Completed [facility] HPV 2011-04-07 00:00:00 Completed [facility] HPV 2011-04-07 00:00:00 Completed [facility] HPV 2011-04-07 00:00:00 Completed [facility] HPV 2011-04-07 00:00:00 Completed [facility] HPV 2011-04-07 00:00:00 Completed [facility] HPV 2011-04-07 00:00:00 Completed [facility] HPV 2011-04-07 00:00:00 Completed [facility] HPV 2011-04-07 00:00:00 Completed [facility] HPV 2011-04-07 00:00:00 Completed [facility] HPV 2011-04-07 00:00:00 Completed [facility] HPV 2011-04-07 00:00:00 Completed [facility] HPV 2011-04-07 00:00:00 Completed [facility] HPV 2011-04-07 00:00:00 Completed [facility] HPV 2011-04-07 00:00:00 Completed [facility] HPV 2011-04-07 00:00:00 Completed [facility] HPV 2011-04-07 00:00:00 Completed [facility] HPV 2011-04-07 00:00:00 Completed [facility] HPV 2011-04-07 00:00:00 Completed [facility] HPV 2011-04-07 00:00:00 Completed [facility] HPV 2011-04-07 00:00:00 Completed [facility] HPV 2011-04-07 00:00:00 Completed [facility] HPV 2011-04-07 00:00:00 Completed [facility] HPV 2011-04-07 00:00:00 Completed [facility] HPV 2011-04-07 00:00:00 Completed [facility] HPV 2011-04-07 00:00:00 Completed [facility] HPV 2011-04-07 00:00:00 Completed [facility] HPV 2011-04-07 00:00:00 Completed [facility] HPV 2011-04-07 00:00:00 Completed [facility] HPV 2011-04-07 00:00:00 Completed [facility] HPV 2011-04-07 00:00:00 Completed [facility] HPV 2011-04-07 00:00:00 Completed [facility] HPV 2011-04-07 00:00:00 Completed [facility] HPV 2011-04-07 00:00:00 Completed [facility] HPV 2011-04-07 00:00:00 Completed [facility] HPV 2011-04-07 00:00:00 Completed [facility] HPV 2011-04-07 00:00:00 Completed [facility] HPV 2011-04-07 00:00:00 Completed [facility] HPV 2011-04-07 00:00:00 Completed [facility] HPV 2011-04-07 00:00:00 Completed [facility] HPV 2011-04-07 00:00:00 Completed [facility] HPV 2011-04-07 00:00:00 Completed [facility] HPV 2011-04-07 00:00:00 Completed [facility] HPV 2011-04-07 00:00:00 Completed [facility] HPV 2011-04-07 00:00:00 Completed [facility] HPV 2011-04-07 00:00:00 Completed [facility] HPV 2011-04-07 00:00:00 Completed [facility] HPV 2011-04-07 00:00:00 Completed [facility] HPV 2011-04-07 00:00:00 Completed [facility] HPV 2011-04-07 00:00:00 Completed [facility] HPV 2011-04-07 00:00:00 Completed [facility] HPV 2011-04-07 00:00:00 Completed [facility] HPV 2011-04-07 00:00:00 Completed [facility] HPV 2011-04-07 00:00:00 Completed [facility] HPV 2011-04-07 00:00:00 Completed [facility] HPV 2011-04-07 00:00:00 Completed [facility] HPV 2011-04-07 00:00:00 Completed [facility] HPV 2011-04-07 00:00:00 Completed [facility] HPV 2011-04-07 00:00:00 Completed [facility] HPV 2011-04-07 00:00:00 Completed [facility] Influenza Virus Vaccine - Whole 2009-12-07 00:00:00 Completed Influenza Virus Vaccine - Whole 2008-01-26 00:00:00 Completed Influenza, split virus, trivalent, PF (AFLURIA/FLUARIX/FLUL AVAL/FLUZONE) 2007-04-13 00:00:00 Completed Polio (IPV/OPV) 2006-04-20 00:00:00 Completed [facility] Varicella (varivax)(chicken pox) 2006-04-20 00:00:00 Completed [facility] DTAP 2006-04-20 00:00:00 Completed [facility] MMR 2006-04-20 00:00:00 Completed [facility] Polio (IPV/OPV) 2006-04-20 00:00:00 Completed [facility] Varicella (varivax)(chicken pox) 2006-04-20 00:00:00 Completed [facility] DTAP 2006-04-20 00:00:00 Completed [facility] MMR 2006-04-20 00:00:00 Completed [facility] Polio (IPV/OPV) 2006-04-20 00:00:00 Completed [facility] Polio (IPV/OPV) 2006-04-20 00:00:00 Completed [facility] Varicella (varivax)(chicken pox) 2006-04-20 00:00:00 Completed [facility] DTAP 2006-04-20 00:00:00 Completed [facility] MMR 2006-04-20 00:00:00 Completed [facility] Varicella (varivax)(chicken pox) 2006-04-20 00:00:00 Completed [facility] DTAP 2006-04-20 00:00:00 Completed [facility] MMR 2006-04-20 00:00:00 Completed [facility] Polio (IPV/OPV) 2006-04-20 00:00:00 Completed [facility] Varicella (varivax)(chicken pox) 2006-04-20 00:00:00 Completed [facility] DTAP 2006-04-20 00:00:00 Completed [facility] MMR 2006-04-20 00:00:00 Completed [facility] Polio (IPV/OPV) 2006-04-20 00:00:00 Completed [facility] Varicella (varivax)(chicken pox) 2006-04-20 00:00:00 Completed [facility] DTAP 2006-04-20 00:00:00 Completed [facility] MMR 2006-04-20 00:00:00 Completed [facility] Polio (IPV/OPV) 2006-04-20 00:00:00 Completed [facility] Varicella (varivax)(chicken pox) 2006-04-20 00:00:00 Completed [facility] DTAP 2006-04-20 00:00:00 Completed [facility] MMR 2006-04-20 00:00:00 Completed [facility] Polio (IPV/OPV) 2006-04-20 00:00:00 Completed [facility] Varicella (varivax)(chicken pox) 2006-04-20 00:00:00 Completed [facility] DTAP 2006-04-20 00:00:00 Completed [facility] MMR 2006-04-20 00:00:00 Completed [facility] Polio (IPV/OPV) 2006-04-20 00:00:00 Completed [facility] Varicella (varivax)(chicken pox) 2006-04-20 00:00:00 Completed [facility] DTAP 2006-04-20 00:00:00 Completed [facility] MMR 2006-04-20 00:00:00 Completed [facility] Polio (IPV/OPV) 2006-04-20 00:00:00 Completed [facility] Varicella (varivax)(chicken pox) 2006-04-20 00:00:00 Completed [facility] DTAP 2006-04-20 00:00:00 Completed [facility] MMR 2006-04-20 00:00:00 Completed [facility] Polio (IPV/OPV) 2006-04-20 00:00:00 Completed [facility] Polio (IPV/OPV) 2006-04-20 00:00:00 Completed [facility] Varicella (varivax)(chicken pox) 2006-04-20 00:00:00 Completed [facility] DTAP 2006-04-20 00:00:00 Completed [facility] MMR 2006-04-20 00:00:00 Completed [facility] Varicella (varivax)(chicken pox) 2006-04-20 00:00:00 Completed [facility] DTAP 2006-04-20 00:00:00 Completed [facility] Polio (IPV/OPV) 2006-04-20 00:00:00 Completed [facility] Varicella (varivax)(chicken pox) 2006-04-20 00:00:00 Completed [facility] DTAP 2006-04-20 00:00:00 Completed [facility] MMR 2006-04-20 00:00:00 Completed [facility] MMR 2006-04-20 00:00:00 Completed [facility] Polio (IPV/OPV) 2006-04-20 00:00:00 Completed [facility] Varicella (varivax)(chicken pox) 2006-04-20 00:00:00 Completed [facility] DTAP 2006-04-20 00:00:00 Completed [facility] MMR 2006-04-20 00:00:00 Completed [facility] Polio (IPV/OPV) 2006-04-20 00:00:00 Completed [facility] Varicella (varivax)(chicken pox) 2006-04-20 00:00:00 Completed [facility] DTAP 2006-04-20 00:00:00 Completed [facility] MMR 2006-04-20 00:00:00 Completed [facility] Polio (IPV/OPV) 2006-04-20 00:00:00 Completed [facility] Varicella (varivax)(chicken pox) 2006-04-20 00:00:00 Completed [facility] DTAP 2006-04-20 00:00:00 Completed [facility] MMR 2006-04-20 00:00:00 Completed [facility] Polio (IPV/OPV) 2006-04-20 00:00:00 Completed [facility] Varicella (varivax)(chicken pox) 2006-04-20 00:00:00 Completed [facility] DTAP 2006-04-20 00:00:00 Completed [facility] MMR 2006-04-20 00:00:00 Completed [facility] Polio (IPV/OPV) 2006-04-20 00:00:00 Completed [facility] Varicella (varivax)(chicken pox) 2006-04-20 00:00:00 Completed [facility] DTAP 2006-04-20 00:00:00 Completed [facility] MMR 2006-04-20 00:00:00 Completed [facility] Polio (IPV/OPV) 2006-04-20 00:00:00 Completed [facility] Varicella (varivax)(chicken pox) 2006-04-20 00:00:00 Completed [facility] DTAP 2006-04-20 00:00:00 Completed [facility] MMR 2006-04-20 00:00:00 Completed [facility] Polio (IPV/OPV) 2006-04-20 00:00:00 Completed [facility] Varicella (varivax)(chicken pox) 2006-04-20 00:00:00 Completed [facility] DTAP 2006-04-20 00:00:00 Completed [facility] MMR 2006-04-20 00:00:00 Completed [facility] Polio (IPV/OPV) 2006-04-20 00:00:00 Completed [facility] Varicella (varivax)(chicken pox) 2006-04-20 00:00:00 Completed [facility] DTAP 2006-04-20 00:00:00 Completed [facility] MMR 2006-04-20 00:00:00 Completed [facility] Polio (IPV/OPV) 2006-04-20 00:00:00 Completed [facility] Varicella (varivax)(chicken pox) 2006-04-20 00:00:00 Completed [facility] DTAP 2006-04-20 00:00:00 Completed [facility] MMR 2006-04-20 00:00:00 Completed [facility] Polio (IPV/OPV) 2006-04-20 00:00:00 Completed [facility] Varicella (varivax)(chicken pox) 2006-04-20 00:00:00 Completed [facility] DTAP 2006-04-20 00:00:00 Completed [facility] MMR 2006-04-20 00:00:00 Completed [facility] Polio (IPV/OPV) 2006-04-20 00:00:00 Completed [facility] Varicella (varivax)(chicken pox) 2006-04-20 00:00:00 Completed [facility] DTAP 2006-04-20 00:00:00 Completed [facility] MMR 2006-04-20 00:00:00 Completed [facility] Polio (IPV/OPV) 2006-04-20 00:00:00 Completed [facility] Varicella (varivax)(chicken pox) 2006-04-20 00:00:00 Completed [facility] DTAP 2006-04-20 00:00:00 Completed [facility] MMR 2006-04-20 00:00:00 Completed [facility] Polio (IPV/OPV) 2006-04-20 00:00:00 Completed [facility] Varicella (varivax)(chicken pox) 2006-04-20 00:00:00 Completed [facility] DTAP 2006-04-20 00:00:00 Completed [facility] MMR 2006-04-20 00:00:00 Completed [facility] Polio (IPV/OPV) 2006-04-20 00:00:00 Completed [facility] Varicella (varivax)(chicken pox) 2006-04-20 00:00:00 Completed [facility] DTAP 2006-04-20 00:00:00 Completed [facility] MMR 2006-04-20 00:00:00 Completed [facility] Polio (IPV/OPV) 2006-04-20 00:00:00 Completed [facility] Varicella (varivax)(chicken pox) 2006-04-20 00:00:00 Completed [facility] DTAP 2006-04-20 00:00:00 Completed [facility] MMR 2006-04-20 00:00:00 Completed [facility] Polio (IPV/OPV) 2006-04-20 00:00:00 Completed [facility] Varicella (varivax)(chicken pox) 2006-04-20 00:00:00 Completed [facility] DTAP 2006-04-20 00:00:00 Completed [facility] MMR 2006-04-20 00:00[facility] [facility] [place] Polio (IPV/OPV) 2006-04-20 00:00:00 Completed [facility] [place] Polio (IPV/OPV) 2006-04-20 00:00:00 Completed [facility] [place] Varicella (varivax)(chicken pox) 2006-04-20 00:00:00 Completed [facility] DTAP 2006-04-20 00:00:00 Completed [facility] MMR 2006-04-20 00:00:00 Completed [facility] [place] Varicella (varivax)(chicken pox) 2006-04-20 00:00:00 Completed [facility] [place] DTAP 2006-04-20 00:00:00 Completed [facility] [place] Polio (IPV/OPV) 2006-04-20 00:00:00 Completed [facility] [place] MMR 2006-04-20 00:00:00 Completed [facility] [place] Varicella (varivax)(chicken pox) 2006-04-20 00:00:00 Completed [facility] [place] DTAP 2006-04-20 00:00:00 Completed [facility] [place] MMR 2006-04-20 00:00:00 Completed [facility] [place] Polio (IPV/OPV) 2006-04-20 00:00:00 Completed [facility] [place] Varicella (varivax)(chicken pox) 2006-04-20 00:00:00 Completed [facility] DTAP 2006-04-20 00:00:00 Completed [facility] [place] MMR 2006-04-20 00:00:00 Completed [facility] [place] Polio (IPV/OPV) 2006-04-20 00:00:00 Completed [facility] [place] Varicella (varivax)(chicken pox) 2006-04-20 00:00:00 Completed [facility] [place] DTAP 2006-04-20 00:00:00 Completed [facility] [place] MMR 2006-04-20 00:00:00 Completed [facility] [place] Polio (IPV/OPV) 2006-04-20 00:00:00 Completed [facility] [place] Varicella (varivax)(chicken pox) 2006-04-20 00:00:00 Completed [facility] DTAP 2006-04-20 00:00:00 Completed [facility] [place] MMR 2006-04-20 00:00:00 Completed [facility] [place] Polio (IPV/OPV) 2006-04-20 00:00:00 Completed [facility] [place] Varicella (varivax)(chicken pox) 2006-04-20 00:00:00 Completed [facility] [place] DTAP 2006-04-20 00:00:00 Completed [facility] [place] MMR 2006-04-20 00:00:00 Completed [facility] [place] Polio (IPV/OPV) 2006-04-20 00:00:00 Completed [facility] [place] Varicella (varivax)(chicken pox) 2006-04-20 00:00:00 Completed [facility] DTAP 2006-04-20 00:00:00 Completed [facility] MMR 2006-04-20 00:00:00 Completed [facility] [place] Polio (IPV/OPV) 2006-04-20 00:00:00 Completed [facility] [place] Varicella (varivax)(chicken pox) 2006-04-20 00:00:00 Completed [facility] [place] DTAP 2006-04-20 00:00:00 Completed [facility] MMR 2006-04-20 00:00:00 Completed [facility] [place] Polio (IPV/OPV) 2006-04-20 00:00:00 Completed [facility] [place] Varicella (varivax)(chicken pox) 2006-04-20 00:00:00 Completed [facility] [place] DTAP 2006-04-20 00:00:00 Completed [facility] [place] MMR 2006-04-20 00:00:00 Completed [facility] [place] Polio (IPV/OPV) 2006-04-20 00:00:00 Completed [facility] [place] Varicella (varivax)(chicken pox) 2006-04-20 00:00:00 Completed [facility] [place] DTAP 2006-04-20 00:00:00 Completed [facility] MMR 2006-04-20 00:00:00 Completed [facility] [place] Polio (IPV/OPV) 2006-04-20 00:00:00 Completed [facility] [place] Varicella (varivax)(chicken pox) 2006-04-20 00:00:00 Completed [facility] DTAP 2006-04-20 00:00:00 Completed [facility] MMR 2006-04-20 00:00:00 Completed [facility] [place] Polio (IPV/OPV) 2006-04-20 00:00:00 Completed [facility] [place] Varicella (varivax)(chicken pox) 2006-04-20 00:00:00 Completed [facility] DTAP 2006-04-20 00:00:00 Completed [facility] [place] MMR 2006-04-20 00:00:00 Completed [facility] [place] Polio (IPV/OPV) 2006-04-20 00:00:00 Completed [facility] [place] Varicella (varivax)(chicken pox) 2006-04-20 00:00:00 Completed [facility] [place] DTAP 2006-04-20 00:00:00 Completed [facility] [place] MMR 2006-04-20 00:00:00 Completed [facility] [place] Polio (IPV/OPV) 2006-04-20 00:00:00 Completed [facility] [place] Varicella (varivax)(chicken pox) 2006-04-20 00:00:00 Completed [facility] DTAP 2006-04-20 00:00:00 Completed [facility] MMR 2006-04-20 00:00:00 Completed [facility] [place] Polio (IPV/OPV) 2006-04-20 00:00:00 Completed [facility] [place] Varicella (varivax)(chicken pox) 2006-04-20 00:00:00 Completed [facility] [place] DTAP 2006-04-20 00:00:00 Completed [facility] [place] MMR 2006-04-20 00:00:00 Completed [facility] [place] Polio (IPV/OPV) 2006-04-20 00:00:00 Completed [facility] [place] Varicella (varivax)(chicken pox) 2006-04-20 00:00:00 Completed [facility] DTAP 2006-04-20 00:00:00 Completed [facility] [place] MMR 2006-04-20 00:00:00 Completed [facility] [place] Polio (IPV/OPV) 2006-04-20 00:00:00 Completed [facility] [place] Varicella (varivax)(chicken pox) 2006-04-20 00:00:00 Completed [facility] [place] DTAP 2006-04-20 00:00:00 Completed [facility] [place] MMR 2006-04-20 00:00:00 Completed [facility] [place] Polio (IPV/OPV) 2006-04-20 00:00:00 Completed [facility] [place] Varicella (varivax)(chicken pox) 2006-04-20 00:00:00 Completed [facility] [place] DTAP 2006-04-20 00:00:00 Completed [facility] MMR 2006-04-20 00:00:00 Completed [facility] [place] Polio (IPV/OPV) 2006-04-20 00:00:00 Completed [facility] [place] Varicella (varivax)(chicken pox) 2006-04-20 00:00:00 Completed [facility] [place] Polio (IPV/OPV) 2006-04-20 00:00:00 Completed [facility] [place] Varicella (varivax)(chicken pox) 2006-04-20 00:00:00 Completed [facility] [place] DTAP 2006-04-20 00:00:00 Completed [facility] DTAP 2006-04-20 00:00:00 Completed [facility] MMR 2006-04-20 00:00:00 Completed [facility] MMR 2006-04-20 00:00:00 Completed [facility] [place] Polio (IPV/OPV) 2006-04-20 00:00:00 Completed [facility] [place] Varicella (varivax)(chicken pox) 2006-04-20 00:00:00 Completed [facility] [place] DTAP 2006-04-20 00:00:00 Completed [facility] MMR 2006-04-20 00:00:00 Completed [facility] [place] Polio (IPV/OPV) 2006-04-20 00:00:00 Completed [facility] [place] Varicella (varivax)(chicken pox) 2006-04-20 00:00:00 Completed [facility] [place] DTAP 2006-04-20 00:00:00 Completed [facility] [place] MMR 2006-04-20 00:00:00 Completed [facility] [place] Polio (IPV/OPV) 2006-04-20 00:00:00 Completed [facility] [place] Varicella (varivax)(chicken pox) 2006-04-20 00:00:00 Completed [facility] DTAP 2006-04-20 00:00:00 Completed [facility] [place] MMR 2006-04-20 00:00:00 Completed [facility] [place] Polio (IPV/OPV) 2006-04-20 00:00:00 Completed [facility] [place] Varicella (varivax)(chicken pox) 2006-04-20 00:00:00 Completed [facility] [place] DTAP 2006-04-20 00:00:00 Completed [facility] [place] MMR 2006-04-20 00:00:00 Completed [facility] [place] Polio (IPV/OPV) 2006-04-20 00:00:00 Completed [facility] [place] Varicella (varivax)(chicken pox) 2006-04-20 00:00:00 Completed [facility] [place] DTAP 2006-04-20 00:00:00 Completed [facility] [place] MMR 2006-04-20 00:00:00 Completed [facility] [place] Polio (IPV/OPV) 2006-04-20 00:00:00 Completed [facility] [place] Polio (IPV/OPV) 2006-04-20 00:00:00 Completed [facility] [place] Varicella (varivax)(chicken pox) 2006-04-20 00:00:00 Completed [facility] [place] DTAP 2006-04-20 00:00:00 Completed [facility] [place] MMR 2006-04-20 00:00:00 Completed [facility] [place] Polio (IPV/OPV) 2006-04-20 00:00:00 Completed [facility] [place] Varicella (varivax)(chicken pox) 2006-04-20 00:00:00 Completed [facility] [place] DTAP 2006-04-20 00:00:00 Completed [facility] [place] MMR 2006-04-20 00:00:00 Completed [facility] [place] Varicella (varivax)(chicken pox) 2006-04-20 00:00:00 Completed [facility] [place] DTAP 2006-04-20 00:00:00 Completed [facility] [place] MMR 2006-04-20 00:00:00 Completed [facility] [place] Polio (IPV/OPV) 2006-04-20 00:00:00 Completed [facility] [place] Varicella (varivax)(chicken pox) 2006-04-20 00:00:00 Completed [facility] [place] DTAP 2006-04-20 00:00:00 Completed [facility] [place] MMR 2006-04-20 00:00:00 Completed [facility] [place] Polio (IPV/OPV) 2006-04-20 00:00:00 Completed [facility] [place] Varicella (varivax)(chicken pox) 2006-04-20 00:00:00 Completed [facility] [place] DTAP 2006-04-20 00:00:00 Completed [facility] [place] MMR 2006-04-20 00:00:00 Completed [facility] [place] Polio (IPV/OPV) 2006-04-20 00:00:00 Completed [facility] [place] Varicella (varivax)(chicken pox) 2006-04-20 00:00:00 Completed [facility] [place] DTAP 2006-04-20 00:00:00 Completed [facility] [place] MMR 2006-04-20 00:00:00 Completed [facility] [place] Polio (IPV/OPV) 2006-04-20 00:00:00 Completed [facility] [place] Varicella (varivax)(chicken pox) 2006-04-20 00:00:00 Completed [facility] [place] DTAP 2006-04-20 00:00:00 Completed [facility] [place] MMR 2006-04-20 00:00:00 Completed [facility] [place] Polio (IPV/OPV) 2006-04-20 00:00:00 Completed [facility] [place] Varicella (varivax)(chicken pox) 2006-04-20 00:00:00 Completed [facility] [place] DTAP 2006-04-20 00:00:00 Completed [facility] [place] MMR 2006-04-20 00:00:00 Completed [facility] [place] Polio (IPV/OPV) 2006-04-20 00:00:00 Completed [facility] [place] Varicella (varivax)(chicken pox) 2006-04-20 00:00:00 Completed [facility] [place] DTAP 2006-04-20 00:00:00 Completed [facility] MMR 2006-04-20 00:00:00 Completed [facility] [place] Polio (IPV/OPV) 2006-04-20 00:00:00 Completed [facility] [place] Varicella (varivax)(chicken pox) 2006-04-20 00:00:00 Completed [facility] [place] DTAP 2006-04-20 00:00:00 Completed [facility] [place] MMR 2006-04-20 00:00:00 Completed [facility] [place] Polio (IPV/OPV) 2006-04-20 00:00:00 Completed [facility] [place] Varicella (varivax)(chicken pox) 2006-04-20 00:00:00 Completed [facility] [place] DTAP 2006-04-20 00:00:00 Completed [facility] [place] MMR 2006-04-20 00:00:00 Completed [facility] [place] Polio (IPV/OPV) 2006-04-20 00:00:00 Completed [facility] [place] Varicella (varivax)(chicken pox) 2006-04-20 00:00:00 Completed [facility] [place] DTAP 2006-04-20 00:00:00 Completed [facility] [place] MMR 2006-04-20 00:00:00 Completed [facility] [place] Polio (IPV/OPV) 2006-04-20 00:00:00 Completed [facility] [place] Varicella (varivax)(chicken pox) 2006-04-20 00:00:00 Completed [facility] [place] DTAP 2006-04-20 00:00:00 Completed [facility] [place] MMR 2006-04-20 00:00:00 Completed [facility] [place] Polio (IPV/OPV) 2006-04-20 00:00:00 Completed [facility] [place] Varicella (varivax)(chicken pox) 2006-04-20 00:00:00 Completed [facility] [place] DTAP 2006-04-20 00:00:00 Completed [facility] [place] MMR 2006-04-20 00:00:00 Completed [facility] [place] Polio (IPV/OPV) 2006-04-20 00:00:00 Completed [facility] IPV 2006-04-20 00:00:00 Completed Polio (IPV/OPV) 2006-04-20 00:00:00 Completed [facility] [place] Varicella (varivax)(chicken pox) 2006-04-20 00:00:00 Completed [facility] [place] DTAP 2006-04-20 00:00:00 Completed [facility] MMR 2006-04-20 00:00:00 Completed [facility] [place] Polio (IPV/OPV) 2006-04-20 00:00:00 Completed [facility] [place] Varicella (varivax)(chicken pox) 2006-04-20 00:00:00 Completed [facility] [place] DTAP 2006-04-20 00:00:00 Completed [facility] [place] MMR 2006-04-20 00:00:00 Completed [facility] [place] Polio (IPV/OPV) 2006-04-20 00:00:00 Completed [facility] [place] Varicella (varivax)(chicken pox) 2006-04-20 00:00:00 Completed [facility] [place] DTAP 2006-04-20 00:00:00 Completed [facility] [place] MMR 2006-04-20 00:00:00 Completed [facility] [place] Polio (IPV/OPV) 2006-04-20 00:00:00 Completed [facility] [place] Varicella (varivax)(chicken pox) 2006-04-20 00:00:00 Completed [facility] [place] DTAP 2006-04-20 00:00:00 Completed [facility] [place] MMR 2006-04-20 00:00:00 Completed [facility] [place] HEPATITIS A 2005-01-09 00:00:00 Completed [facility] [place] HEPATITIS A 2005-01-09 00:00:00 Completed [facility] [place] HEPATITIS A 2005-01-09 00:00:00 Completed [facility] [place] HEPATITIS A 2005-01-09 00:00:00 Completed [facility] [place] HEPATITIS A 2005-01-09 00:00:00 Completed [facility] [place] HEPATITIS A 2005-01-09 00:00:00 Completed [facility] [place] HEPATITIS A 2005-01-09 00:00:00 Completed [facility] [place] HEPATITIS A 2005-01-09 00:00:00 Completed [facility] [place] HEPATITIS A 2005-01-09 00:00:00 Completed [facility] [place] HEPATITIS A 2005-01-09 00:00:00 Completed [facility] [place] HEPATITIS A 2005-01-09 00:00:00 Completed [facility] [place] HEPATITIS A 2005-01-09 00:00:00 Completed [facility] [place] HEPATITIS A 2005-01-09 00:00:00 Completed [facility] [place] HEPATITIS A 2005-01-09 00:00:00 Completed [facility] [place] HEPATITIS A 2005-01-09 00:00:00 Completed [facility] [place] HEPATITIS A 2005-01-09 00:00:00 Completed [facility] [place] HEPATITIS A 2005-01-09 00:00:00 Completed [facility] [place] HEPATITIS A 2005-01-09 00:00:00 Completed [facility] [place] HEPATITIS A 2005-01-09 00:00:00 Completed [facility] [place] HEPATITIS A 2005-01-09 00:00:00 Completed [facility] [place] HEPATITIS A 2005-01-09 00:00:00 Completed [facility] [place] HEPATITIS A 2005-01-09 00:00:00 Completed [facility] [place] HEPATITIS A 2005-01-09 00:00:00 Completed [facility] [place] HEPATITIS A 2005-01-09 00:00:00 Completed [facility] [place] HEPATITIS A 2005-01-09 00:00:00 Completed [facility] [place] HEPATITIS A 2005-01-09 00:00:00 Completed [facility] [place] HEPATITIS A 2005-01-09 00:00:00 Completed [facility] [place] HEPATITIS A 2005-01-09 00:00:00 Completed [facility] [place] HEPATITIS A 2005-01-09 00:00:00 Completed [facility] [place] HEPATITIS A 2005-01-09 00:00:00 Completed [facility] [place] HEPATITIS A 2005-01-09 00:00:00 Completed [facility] [place] HEPATITIS A 2005-01-09 00:00:00 Completed [facility] [place] HEPATITIS A 2005-01-09 00:00:00 Completed [facility] [place] HEPATITIS A 2005-01-09 00:00:00 Completed [facility] [place] HEPATITIS A 2005-01-09 00:00:00 Completed [facility] [place] HEPATITIS A 2005-01-09 00:00:00 Completed [facility] [place] HEPATITIS A 2005-01-09 00:00:00 Completed [facility] [place] HEPATITIS A 2005-01-09 00:00:00 Completed [facility] [place] HEPATITIS A 2005-01-09 00:00:00 Completed [facility] [place] HEPATITIS A 2005-01-09 00:00:00 Completed [facility] [place] HEPATITIS A 2005-01-09 00:00:00 Completed [facility] [place] HEPATITIS A 2005-01-09 00:00:00 Completed [facility] [place] HEPATITIS A 2005-01-09 00:00:00 Completed [facility] [place] HEPATITIS A 2005-01-09 00:00:00 Completed [facility] [place] HEPATITIS A 2005-01-09 00:00:00 Completed [facility] [place] HEPATITIS A 2005-01-09 00:00:00 Completed [facility] [place] HEPATITIS A 2005-01-09 00:00:00 Completed [facility] [place] HEPATITIS A 2005-01-09 00:00:00 Completed [facility] [place] HEPATITIS A 2005-01-09 00:00:00 Completed [facility] [place] HEPATITIS A 2005-01-09 00:00:00 Completed [facility] [place] HEPATITIS A 2005-01-09 00:00:00 Completed [facility] [place] HEPATITIS A 2005-01-09 00:00:00 Completed [facility] [place] HEPATITIS A 2005-01-09 00:00:00 Completed [facility] [place] HEPATITIS A 2005-01-09 00:00:00 Completed [facility] [place] HEPATITIS A 2005-01-09 00:00:00 Completed [facility] [place] HEPATITIS A 2005-01-09 00:00:00 Completed [facility] [place] HEPATITIS A 2005-01-09 00:00:00 Completed [facility] [place] HEPATITIS A 2005-01-09 00:00:00 Completed [facility] [place] HEPATITIS A 2005-01-09 00:00:00 Completed [facility] [place] HEPATITIS A 2005-01-09 00:00:00 Completed [facility] [place] HEPATITIS A 2005-01-09 00:00:00 Completed [facility] [place] HEPATITIS A 2005-01-09 00:00:00 Completed [facility] [place] HEPATITIS A 2005-01-09 00:00:00 Completed [facility] [place] HEPATITIS A 2005-01-09 00:00:00 Completed [facility] [place] HEPATITIS A 2005-01-09 00:00:00 Completed [facility] [place] HEPATITIS A 2005-01-09 00:00:00 Completed [facility] [place] HEPATITIS A 2005-01-09 00:00:00 Completed [facility] [place] HEPATITIS A 2005-01-09 00:00:00 Completed [facility] [place] HEPATITIS A 2005-01-09 00:00:00 Completed [facility] [place] HEPATITIS A 2005-01-09 00:00:00 Completed [facility] [place] Influenza, split virus, trivalent, PF (AFLURIA/FLUARIX/FLUL AVAL/FLUZONE) 2005-01-09 00:00:00 Completed HEPATITIS A 2005-01-09 00:00:00 Completed [facility] [place] HEPATITIS A 2005-01-09 00:00:00 Completed [facility] [place] HEPATITIS A 2005-01-09 00:00:00 Completed [facility] [place] HEPATITIS A 2004-05-28 00:00:00 Completed [facility] [place] Pneumococcal 7 Conjugate, PCV7 (Prevnar7) 2004-05-28 00:00:00 Completed [facility] [place] HEPATITIS A 2004-05-28 00:00:00 Completed [facility] [place] Pneumococcal 7 Conjugate, PCV7 (Prevnar7) 2004-05-28 00:00:00 Completed [facility] [place] HEPATITIS A 2004-05-28 00:00:00 Completed [facility] [place] Pneumococcal 7 Conjugate, PCV7 (Prevnar7) 2004-05-28 00:00:00 Completed [facility] [place] HEPATITIS A 2004-05-28 00:00:00 Completed [facility] [place] Pneumococcal 7 Conjugate, PCV7 (Prevnar7) 2004-05-28 00:00:00 Completed [facility] [place] Pneumococcal 7 Conjugate, PCV7 (Prevnar7) 2004-05-28 00:00:00 Completed [facility] [place] HEPATITIS A 2004-05-28 00:00:00 Completed [facility] [place] Pneumococcal 7 Conjugate, PCV7 (Prevnar7) 2004-05-28 00:00:00 Completed [facility] [place] HEPATITIS A 2004-05-28 00:00:00 Completed [facility] [place] Pneumococcal 7 Conjugate, PCV7 (Prevnar7) 2004-05-28 00:00:00 Completed [facility] [place] HEPATITIS A 2004-05-28 00:00:00 Completed [facility] [place] Pneumococcal 7 Conjugate, PCV7 (Prevnar7) 2004-05-28 00:00:00 Completed [facility] [place] HEPATITIS A 2004-05-28 00:00:00 Completed [facility] [place] Pneumococcal 7 Conjugate, PCV7 (Prevnar7) 2004-05-28 00:00:00 Completed [facility] [place] HEPATITIS A 2004-05-28 00:00:00 Completed [facility] [place] HEPATITIS A 2004-05-28 00:00:00 Completed [facility] [place] Pneumococcal 7 Conjugate, PCV7 (Prevnar7) 2004-05-28 00:00:00 Completed [facility] [place] HEPATITIS A 2004-05-28 00:00:00 Completed [facility] [place] Pneumococcal 7 Conjugate, PCV7 (Prevnar7) 2004-05-28 00:00:00 Completed [facility] [place] HEPATITIS A 2004-05-28 00:00:00 Completed [facility] [place] Pneumococcal 7 Conjugate, PCV7 (Prevnar7) 2004-05-28 00:00:00 Completed [facility] [place] Pneumococcal 7 Conjugate, PCV7 (Prevnar7) 2004-05-28 00:00:00 Completed [facility] [place] HEPATITIS A 2004-05-28 00:00:00 Completed [facility] [place] Pneumococcal 7 Conjugate, PCV7 (Prevnar7) 2004-05-28 00:00:00 Completed [facility] [place] HEPATITIS A 2004-05-28 00:00:00 Completed [facility] [place] Pneumococcal 7 Conjugate, PCV7 (Prevnar7) 2004-05-28 00:00:00 Completed [facility] [place] HEPATITIS A 2004-05-28 00:00:00 Completed [facility] [place] Pneumococcal 7 Conjugate, PCV7 (Prevnar7) 2004-05-28 00:00:00 Completed [facility] [place] HEPATITIS A 2004-05-28 00:00:00 Completed [facility] [place] Pneumococcal 7 Conjugate, PCV7 (Prevnar7) 2004-05-28 00:00:00 Completed [facility] [place] HEPATITIS A 2004-05-28 00:00:00 Completed [facility] [place] Pneumococcal 7 Conjugate, PCV7 (Prevnar7) 2004-05-28 00:00:00 Completed [facility] [place] HEPATITIS A 2004-05-28 00:00:00 Completed [facility] [place] Pneumococcal 7 Conjugate, PCV7 (Prevnar7) 2004-05-28 00:00:00 Completed [facility] [place] HEPATITIS A 2004-05-28 00:00:00 Completed [facility] [place] Pneumococcal 7 Conjugate, PCV7 (Prevnar7) 2004-05-28 00:00:00 Completed [facility] HEPATITIS A 2004-05-28 00:00:00 Completed [facility] Pneumococcal 7 Conjugate, PCV7 (Prevnar7) 2004-05-28 00:00:00 Completed [facility] HEPATITIS A 2004-05-28 00:00:00 Completed [facility] Pneumococcal 7 Conjugate, PCV7 (Prevnar7) 2004-05-28 00:00:00 Completed [facility] HEPATITIS A 2004-05-28 00:00:00 Completed [facility] HEPATITIS A 2004-05-28 00:00:00 Completed [facility] Pneumococcal 7 Conjugate, PCV7 (Prevnar7) 2004-05-28 00:00:00 Completed [facility] HEPATITIS A 2004-05-28 00:00:00 Completed [facility] Pneumococcal 7 Conjugate, PCV7 (Prevnar7) 2004-05-28 00:00:00 Completed [facility] HEPATITIS A 2004-05-28 00:00:00 Completed [facility] Pneumococcal 7 Conjugate, PCV7 (Prevnar7) 2004-05-28 00:00:00 Completed [facility] Pneumococcal 7 Conjugate, PCV7 (Prevnar7) 2004-05-28 00:00:00 Completed [facility] HEPATITIS A 2004-05-28 00:00:00 Completed [facility] Pneumococcal 7 Conjugate, PCV7 (Prevnar7) 2004-05-28 00:00:00 Completed [facility] HEPATITIS A 2004-05-28 00:00:00 Completed [facility] Pneumococcal 7 Conjugate, PCV7 (Prevnar7) 2004-05-28 00:00:00 Completed [facility] HEPATITIS A 2004-05-28 00:00:00 Completed [facility] HEPATITIS A 2004-05-28 00:00:00 Completed [facility] Pneumococcal 7 Conjugate, PCV7 (Prevnar7) 2004-05-28 00:00:00 Completed [facility] HEPATITIS A 2004-05-28 00:00:00 Completed [facility] Pneumococcal 7 Conjugate, PCV7 (Prevnar7) 2004-05-28 00:00:00 Completed [facility] HEPATITIS A 2004-05-28 00:00:00 Completed [facility] Pneumococcal 7 Conjugate, PCV7 (Prevnar7) 2004-05-28 00:00:00 Completed [facility] Pneumococcal 7 Conjugate, PCV7 (Prevnar7) 2004-05-28 00:00:00 Completed [facility] HEPATITIS A 2004-05-28 00:00:00 Completed [facility] Pneumococcal 7 Conjugate, PCV7 (Prevnar7) 2004-05-28 00:00:00 Completed [facility] HEPATITIS A 2004-05-28 00:00:00 Completed [facility] Pneumococcal 7 Conjugate, PCV7 (Prevnar7) 2004-05-28 00:00:00 Completed [facility] HEPATITIS A 2004-05-28 00:00:00 Completed [facility] Pneumococcal 7 Conjugate, PCV7 (Prevnar7) 2004-05-28 00:00:00 Completed [facility] HEPATITIS A 2004-05-28 00:00:00 Completed [facility] Pneumococcal 7 Conjugate, PCV7 (Prevnar7) 2004-05-28 00:00:00 Completed [facility] HEPATITIS A 2004-05-28 00:00:00 Completed [facility] Pneumococcal 7 Conjugate, PCV7 (Prevnar7) 2004-05-28 00:00:00 Completed [facility] HEPATITIS A 2004-05-28 00:00:00 Completed [facility] Pneumococcal 7 Conjugate, PCV7 (Prevnar7) 2004-05-28 00:00:00 Completed [facility] HEPATITIS A 2004-05-28 00:00:00 Completed [facility] Pneumococcal 7 Conjugate, PCV7 (Prevnar7) 2004-05-28 00:00:00 Completed [facility] HEPATITIS A 2004-05-28 00:00:00 Completed [facility] Pneumococcal 7 Conjugate, PCV7 (Prevnar7) 2004-05-28 00:00:00 Completed [facility] HEPATITIS A 2004-05-28 00:00:00 Completed [facility] Pneumococcal 7 Conjugate, PCV7 (Prevnar7) 2004-05-28 00:00:00 Completed [facility] HEPATITIS A 2004-05-28 00:00:00 Completed [facility] Pneumococcal 7 Conjugate, PCV7 (Prevnar7) 2004-05-28 00:00:00 Completed [facility] HEPATITIS A 2004-05-28 00:00:00 Completed [facility] Pneumococcal 7 Conjugate, PCV7 (Prevnar7) 2004-05-28 00:00:00 Completed [facility] HEPATITIS A 2004-05-28 00:00:00 Completed [facility] Pneumococcal 7 Conjugate, PCV7 (Prevnar7) 2004-05-28 00:00:00 Completed [facility] HEPATITIS A 2004-05-28 00:00:00 Completed [facility] Pneumococcal 7 Conjugate, PCV7 (Prevnar7) 2004-05-28 00:00:00 Completed [facility] HEPATITIS A 2004-05-28 00:00:00 Completed [facility] Pneumococcal 7 Conjugate, PCV7 (Prevnar7) 2004-05-28 00:00:00 Completed [facility] HEPATITIS A 2004-05-28 00:00:00 Completed [facility] HEPATITIS A 2004-05-28 00:00:00 Completed [facility] Pneumococcal 7 Conjugate, PCV7 (Prevnar7) 2004-05-28 00:00:00 Completed [facility] HEPATITIS A 2004-05-28 00:00:00 Completed [facility] Pneumococcal 7 Conjugate, PCV7 (Prevnar7) 2004-05-28 00:00:00 Completed [facility] HEPATITIS A 2004-05-28 00:00:00 Completed [facility] Pneumococcal 7 Conjugate, PCV7 (Prevnar7) 2004-05-28 00:00:00 Completed [facility] HEPATITIS A 2004-05-28 00:00:00 Completed [facility] Pneumococcal 7 Conjugate, PCV7 (Prevnar7) 2004-05-28 00:00:00 Completed [facility] Pneumococcal 7 Conjugate, PCV7 (Prevnar7) 2004-05-28 00:00:00 Completed [facility] HEPATITIS A 2004-05-28 00:00:00 Completed [facility] Pneumococcal 7 Conjugate, PCV7 (Prevnar7) 2004-05-28 00:00:00 Completed [facility] HEPATITIS A 2004-05-28 00:00:00 Completed [facility] Pneumococcal 7 Conjugate, PCV7 (Prevnar7) 2004-05-28 00:00:00 Completed [facility] HEPATITIS A 2004-05-28 00:00:00 Completed [facility] Pneumococcal 7 Conjugate, PCV7 (Prevnar7) 2004-05-28 00:00:00 Completed [facility] HEPATITIS A 2004-05-28 00:00:00 Completed [facility] HEPATITIS A 2004-05-28 00:00:00 Completed [facility] Pneumococcal 7 Conjugate, PCV7 (Prevnar7) 2004-05-28 00:00:00 Completed [facility] HEPATITIS A 2004-05-28 00:00:00 Completed [facility] Pneumococcal 7 Conjugate, PCV7 (Prevnar7) 2004-05-28 00:00:00 Completed [facility] HEPATITIS A 2004-05-28 00:00:00 Completed [facility] Pneumococcal 7 Conjugate, PCV7 (Prevnar7) 2004-05-28 00:00:00 Completed [facility] Pneumococcal 7 Conjugate, PCV7 (Prevnar7) 2004-05-28 00:00:00 Completed [facility] HEPATITIS A 2004-05-28 00:00:00 Completed [facility] Pneumococcal 7 Conjugate, PCV7 (Prevnar7) 2004-05-28 00:00:00 Completed [facility] HEPATITIS A 2004-05-28 00:00:00 Completed [facility] Pneumococcal 7 Conjugate, PCV7 (Prevnar7) 2004-05-28 00:00:00 Completed [facility] HEPATITIS A 2004-05-28 00:00:00 Completed [facility] Pneumococcal 7 Conjugate, PCV7 (Prevnar7) 2004-05-28 00:00:00 Completed [facility] HEPATITIS A 2004-05-28 00:00:00 Completed [facility] HEPATITIS A 2004-05-28 00:00:00 Completed [facility] Pneumococcal 7 Conjugate, PCV7 (Prevnar7) 2004-05-28 00:00:00 Completed [facility] HEPATITIS A 2004-05-28 00:00:00 Completed [facility] Pneumococcal 7 Conjugate, PCV7 (Prevnar7) 2004-05-28 00:00:00 Completed [facility] Pneumococcal 7 Conjugate, PCV7 (Prevnar7) 2004-05-28 00:00:00 Completed [facility] HEPATITIS A 2004-05-28 00:00:00 Completed [facility] HEPATITIS A 2004-05-28 00:00:00 Completed [facility] Pneumococcal 7 Conjugate, PCV7 (Prevnar7) 2004-05-28 00:00:00 Completed [facility] HEPATITIS A 2004-05-28 00:00:00 Completed [facility] Pneumococcal 7 Conjugate, PCV7 (Prevnar7) 2004-05-28 00:00:00 Completed [facility] HEPATITIS A 2004-05-28 00:00:00 Completed [facility] Pneumococcal 7 Conjugate, PCV7 (Prevnar7) 2004-05-28 00:00:00 Completed [facility] HEPATITIS A 2004-05-28 00:00:00 Completed [facility] Pneumococcal 7 Conjugate, PCV7 (Prevnar7) 2004-05-28 00:00:00 Completed [facility] HEPATITIS A 2004-05-28 00:00:00 Completed [facility] Pneumococcal 7 Conjugate, PCV7 (Prevnar7) 2004-05-28 00:00:00 Completed [facility] HEPATITIS A 2004-05-28 00:00:00 Completed [facility] Pneumococcal 7 Conjugate, PCV7 (Prevnar7) 2004-05-28 00:00:00 Completed [facility] HEPATITIS A 2004-05-28 00:00:00 Completed [facility] Pneumococcal 7 Conjugate, PCV7 (Prevnar7) 2004-05-28 00:00:00 Completed [facility] HEPATITIS A 2004-05-28 00:00:00 Completed [facility] Pneumococcal 7 Conjugate, PCV7 (Prevnar7) 2004-05-28 00:00:00 Completed [facility] HEPATITIS A 2004-05-28 00:00:00 Completed [facility] Pneumococcal 7 Conjugate, PCV7 (Prevnar7) 2004-05-28 00:00:00 Completed [facility] HIB 4 Dose Schedule 2003-08-04 00:00:00 Completed [facility] DTAP 2003-08-04 00:00:00 Completed [facility] HIB 4 Dose Schedule 2003-08-04 00:00:00 Completed [facility] DTAP 2003-08-04 00:00:00 Completed [facility] HIB 4 Dose Schedule 2003-08-04 00:00:00 Completed [facility] DTAP 2003-08-04 00:00:00 Completed [facility] HIB 4 Dose Schedule 2003-08-04 00:00:00 Completed [facility] DTAP 2003-08-04 00:00:00 Completed [facility] HIB 4 Dose Schedule 2003-08-04 00:00:00 Completed [facility] DTAP 2003-08-04 00:00:00 Completed [facility] HIB 4 Dose Schedule 2003-08-04 00:00:00 Completed [facility] DTAP 2003-08-04 00:00:00 Completed [facility] HIB 4 Dose Schedule 2003-08-04 00:00:00 Completed [facility] DTAP 2003-08-04 00:00:00 Completed [facility] DTAP 2003-08-04 00:00:00 Completed [facility] HIB 4 Dose Schedule 2003-08-04 00:00:00 Completed [facility] HIB 4 Dose Schedule 2003-08-04 00:00:00 Completed [facility] DTAP 2003-08-04 00:00:00 Completed [facility] HIB 4 Dose Schedule 2003-08-04 00:00:00 Completed [facility] DTAP 2003-08-04 00:00:00 Completed [facility] HIB 4 Dose Schedule 2003-08-04 00:00:00 Completed [facility] DTAP 2003-08-04 00:00:00 Completed [facility] HIB 4 Dose Schedule 2003-08-04 00:00:00 Completed [facility] DTAP 2003-08-04 00:00:00 Completed [facility] HIB 4 Dose Schedule 2003-08-04 00:00:00 Completed [facility] DTAP 2003-08-04 00:00:00 Completed [facility] HIB 4 Dose Schedule 2003-08-04 00:00:00 Completed [facility] DTAP 2003-08-04 00:00:00 Completed [facility] HIB 4 Dose Schedule 2003-08-04 00:00:00 Completed [facility] DTAP 2003-08-04 00:00:00 Completed [facility] HIB 4 Dose Schedule 2003-08-04 00:00:00 Completed [facility] DTAP 2003-08-04 00:00:00 Completed [facility] HIB 4 Dose Schedule 2003-08-04 00:00:00 Completed [facility] DTAP 2003-08-04 00:00:00 Completed [facility] HIB 4 Dose Schedule 2003-08-04 00:00:00 Completed [facility] DTAP 2003-08-04 00:00:00 Completed [facility] HIB 4 Dose Schedule 2003-08-04 00:00:00 Completed [facility] DTAP 2003-08-04 00:00:00 Completed [facility] HIB 4 Dose Schedule 2003-08-04 00:00:00 Completed [facility] DTAP 2003-08-04 00:00:00 Completed [facility] HIB 4 Dose Schedule 2003-08-04 00:00:00 Completed [facility] DTAP 2003-08-04 00:00:00 Completed [facility] HIB 4 Dose Schedule 2003-08-04 00:00:00 Completed [facility] DTAP 2003-08-04 00:00:00 Completed [facility] HIB 4 Dose Schedule 2003-08-04 00:00:00 Completed [facility] DTAP 2003-08-04 00:00:00 Completed [facility] HIB 4 Dose Schedule 2003-08-04 00:00:00 Completed [facility] DTAP 2003-08-04 00:00:00 Completed [facility] HIB 4 Dose Schedule 2003-08-04 00:00:00 Completed [facility] DTAP 2003-08-04 00:00:00 Completed [facility] HIB 4 Dose Schedule 2003-08-04 00:00:00 Completed [facility] DTAP 2003-08-04 00:00:00 Completed [facility] DTAP 2003-08-04 00:00:00 Completed [facility] HIB 4 Dose Schedule 2003-08-04 00:00:00 Completed [facility] HIB 4 Dose Schedule 2003-08-04 00:00:00 Completed [facility] DTAP 2003-08-04 00:00:00 Completed [facility] HIB 4 Dose Schedule 2003-08-04 00:00:00 Completed [facility] DTAP 2003-08-04 00:00:00 Completed [facility] HIB 4 Dose Schedule 2003-08-04 00:00:00 Completed [facility] DTAP 2003-08-04 00:00:00 Completed [facility] HIB 4 Dose Schedule 2003-08-04 00:00:00 Completed [facility] DTAP 2003-08-04 00:00:00 Completed [facility] HIB 4 Dose Schedule 2003-08-04 00:00:00 Completed [facility] DTAP 2003-08-04 00:00:00 Completed [facility] HIB 4 Dose Schedule 2003-08-04 00:00:00 Completed [facility] DTAP 2003-08-04 00:00:00 Completed [facility] HIB 4 Dose Schedule 2003-08-04 00:00:00 Completed [facility] DTAP 2003-08-04 00:00:00 Completed [facility] HIB 4 Dose Schedule 2003-08-04 00:00:00 Completed [facility] DTAP 2003-08-04 00:00:00 Completed [facility] HIB 4 Dose Schedule 2003-08-04 00:00:00 Completed [facility] DTAP 2003-08-04 00:00:00 Completed [facility] HIB 4 Dose Schedule 2003-08-04 00:00:00 Completed [facility] DTAP 2003-08-04 00:00:00 Completed [facility] HIB 4 Dose Schedule 2003-08-04 00:00:00 Completed [facility] DTAP 2003-08-04 00:00:00 Completed [facility] HIB 4 Dose Schedule 2003-08-04 00:00:00 Completed [facility] DTAP 2003-08-04 00:00:00 Completed [facility] HIB 4 Dose Schedule 2003-08-04 00:00:00 Completed [facility] DTAP 2003-08-04 00:00:00 Completed [facility] HIB 4 Dose Schedule 2003-08-04 00:00:00 Completed [facility] DTAP 2003-08-04 00:00:00 Completed [facility] HIB 4 Dose Schedule 2003-08-04 00:00:00 Completed [facility] DTAP 2003-08-04 00:00:00 Completed [facility] HIB 4 Dose Schedule 2003-08-04 00:00:00 Completed [facility] DTAP 2003-08-04 00:00:00 Completed [facility] HIB 4 Dose Schedule 2003-08-04 00:00:00 Completed [facility] DTAP 2003-08-04 00:00:00 Completed [facility] HIB 4 Dose Schedule 2003-08-04 00:00:00 Completed [facility] DTAP 2003-08-04 00:00:00 Completed [facility] DTAP 2003-08-04 00:00:00 Completed [facility] HIB 4 Dose Schedule 2003-08-04 00:00:00 Completed [facility] HIB 4 Dose Schedule 2003-08-04 00:00:00 Completed [facility] DTAP 2003-08-04 00:00:00 Completed [facility] HIB 4 Dose Schedule 2003-08-04 00:00:00 Completed [facility] DTAP 2003-08-04 00:00:00 Completed [facility] HIB 4 Dose Schedule 2003-08-04 00:00:00 Completed [facility] DTAP 2003-08-04 00:00:00 Completed [facility] HIB 4 Dose Schedule 2003-08-04 00:00:00 Completed [facility] DTAP 2003-08-04 00:00:00 Completed [facility] HIB 4 Dose Schedule 2003-08-04 00:00:00 Completed [facility] DTAP 2003-08-04 00:00:00 Completed [facility] HIB 4 Dose Schedule 2003-08-04 00:00:00 Completed [facility] DTAP 2003-08-04 00:00:00 Completed [facility] HIB 4 Dose Schedule 2003-08-04 00:00:00 Completed [facility] DTAP 2003-08-04 00:00:00 Completed [facility] HIB 4 Dose Schedule 2003-08-04 00:00:00 Completed [facility] DTAP 2003-08-04 00:00:00 Completed [facility] HIB 4 Dose Schedule 2003-08-04 00:00:00 Completed [facility] DTAP 2003-08-04 00:00:00 Completed [facility] HIB 4 Dose Schedule 2003-08-04 00:00:00 Completed [facility] DTAP 2003-08-04 00:00:00 Completed [facility] HIB 4 Dose Schedule 2003-08-04 00:00:00 Completed [facility] DTAP 2003-08-04 00:00:00 Completed [facility] HIB 4 Dose Schedule 2003-08-04 00:00:00 Completed [facility] DTAP 2003-08-04 00:00:00 Completed [facility] HIB 4 Dose Schedule 2003-08-04 00:00:00 Completed [facility] DTAP 2003-08-04 00:00:00 Completed [facility] DTAP 2003-08-04 00:00:00 Completed [facility] HIB 4 Dose Schedule 2003-08-04 00:00:00 Completed [facility] HIB 4 Dose Schedule 2003-08-04 00:00:00 Completed [facility] DTAP 2003-08-04 00:00:00 Completed [facility] HIB 4 Dose Schedule 2003-08-04 00:00:00 Completed [facility] DTAP 2003-08-04 00:00:00 Completed [facility] HIB 4 Dose Schedule 2003-08-04 00:00:00 Completed [facility] DTAP 2003-08-04 00:00:00 Completed [facility] HIB 4 Dose Schedule 2003-08-04 00:00:00 Completed [facility] DTAP 2003-08-04 00:00:00 Completed [facility] HIB 4 Dose Schedule 2003-08-04 00:00:00 Completed [facility] DTAP 2003-08-04 00:00:00 Completed [facility] HIB 4 Dose Schedule 2003-08-04 00:00:00 Completed [facility] DTAP 2003-08-04 00:00:00 Completed [facility] HIB 4 Dose Schedule 2003-08-04 00:00:00 Completed [facility] DTAP 2003-08-04 00:00:00 Completed [facility] HIB 4 Dose Schedule 2003-08-04 00:00:00 Completed [facility] DTAP 2003-08-04 00:00:00 Completed [facility] HIB 4 Dose Schedule 2003-08-04 00:00:00 Completed [facility] DTAP 2003-08-04 00:00:00 Completed DTAP 2003-08-04 00:00:00 Completed [facility] HIB 4 Dose Schedule 2003-08-04 00:00:00 Completed [facility] DTaP, Unspecified Formulation 2003-08-04 00:00:00 Completed DTAP 2003-08-04 00:00:00 Completed [facility] HIB 4 Dose Schedule 2003-08-04 00:00:00 Completed [facility] DTAP 2003-08-04 00:00:00 Completed [facility] HIB 4 Dose Schedule 2003-08-04 00:00:00 Completed [facility] DTAP 2003-08-04 00:00:00 Completed [facility] HIB 4 Dose Schedule 2003-08-04 00:00:00 Completed [facility] DTAP 2003-08-04 00:00:00 Completed [facility] MMR 2003-05-05 00:00:00 Completed [facility] Polio (IPV/OPV) 2003-05-05 00:00:00 Completed [facility] Pneumococcal 7 Conjugate, PCV7 (Prevnar7) 2003-05-05 00:00:00 Completed [facility] MMR 2003-05-05 00:00:00 Completed [facility] MMR 2003-05-05 00:00:00 Completed [facility] Polio (IPV/OPV) 2003-05-05 00:00:00 Completed [facility] Pneumococcal 7 Conjugate, PCV7 (Prevnar7) 2003-05-05 00:00:00 Completed [facility] Polio (IPV/OPV) 2003-05-05 00:00:00 Completed [facility] MMR 2003-05-05 00:00:00 Completed [facility] Polio (IPV/OPV) 2003-05-05 00:00:00 Completed [facility] Pneumococcal 7 Conjugate, PCV7 (Prevnar7) 2003-05-05 00:00:00 Completed [facility] MMR 2003-05-05 00:00:00 Completed [facility] Polio (IPV/OPV) 2003-05-05 00:00:00 Completed [facility] Pneumococcal 7 Conjugate, PCV7 (Prevnar7) 2003-05-05 00:00:00 Completed [facility] Pneumococcal 7 Conjugate, PCV7 (Prevnar7) 2003-05-05 00:00:00 Completed [facility] MMR 2003-05-05 00:00:00 Completed [facility] Polio (IPV/OPV) 2003-05-05 00:00:00 Completed [facility] Pneumococcal 7 Conjugate, PCV7 (Prevnar7) 2003-05-05 00:00:00 Completed [facility] MMR 2003-05-05 00:00:00 Completed [facility] Polio (IPV/OPV) 2003-05-05 00:00:00 Completed [facility] Pneumococcal 7 Conjugate, PCV7 (Prevnar7) 2003-05-05 00:00:00 Completed [facility] MMR 2003-05-05 00:00:00 Completed [facility] Polio (IPV/OPV) 2003-05-05 00:00:00 Completed [facility] Pneumococcal 7 Conjugate, PCV7 (Prevnar7) 2003-05-05 00:00:00 Completed [facility] MMR 2003-05-05 00:00:00 Completed [facility] Polio (IPV/OPV) 2003-05-05 00:00:00 Completed [facility] Pneumococcal 7 Conjugate, PCV7 (Prevnar7) 2003-05-05 00:00:00 Completed [facility] 2003-05-05 00:00:00 Completed [facility] Polio (IPV/OPV) 2003-05-05 00:00:00 Completed [facility] Pneumococcal 7 Conjugate, PCV7 (Prevnar7) 2003-05-05 00:00:00 Completed [facility] 2003-05-05 00:00:00 Completed [facility] 2003-05-05 00:00:00 Completed [facility] Polio (IPV/OPV) 2003-05-05 00:00:00 Completed [facility] Polio (IPV/OPV) 2003-05-05 00:00:00 Completed [facility] Pneumococcal 7 Conjugate, PCV7 (Prevnar7) 2003-05-05 00:00:00 Completed [facility] 2003-05-05 00:00:00 Completed [facility] Polio (IPV/OPV) 2003-05-05 00:00:00 Completed [facility] Pneumococcal 7 Conjugate, PCV7 (Prevnar7) 2003-05-05 00:00:00 Completed [facility] Pneumococcal 7 Conjugate, PCV7 (Prevnar7) 2003-05-05 00:00:00 Completed [facility] 2003-05-05 00:00:00 Completed [facility] Polio (IPV/OPV) 2003-05-05 00:00:00 Completed [facility] Pneumococcal 7 Conjugate, PCV7 (Prevnar7) 2003-05-05 00:00:00 Completed [facility] MMR 2003-05-05 00:00:00 Completed [facility] Polio (IPV/OPV) 2003-05-05 00:00:00 Completed [facility] Pneumococcal 7 Conjugate, PCV7 (Prevnar7) 2003-05-05 00:00:00 Completed [facility] 2003-05-05 00:00:00 Completed [facility] Polio (IPV/OPV) 2003-05-05 00:00:00 Completed [facility] Pneumococcal 7 Conjugate, PCV7 (Prevnar7) 2003-05-05 00:00:00 Completed [facility] 2003-05-05 00:00:00 Completed [facility] Polio (IPV/OPV) 2003-05-05 00:00:00 Completed [facility] Pneumococcal 7 Conjugate, PCV7 (Prevnar7) 2003-05-05 00:00:00 Completed [facility] MMR 2003-05-05 00:00:00 Completed [facility] Polio (IPV/OPV) 2003-05-05 00:00:00 Completed [facility] Pneumococcal 7 Conjugate, PCV7 (Prevnar7) 2003-05-05 00:00:00 Completed [facility] MMR 2003-05-05 00:00:00 Completed [facility] Polio (IPV/OPV) 2003-05-05 00:00:00 Completed [facility] Pneumococcal 7 Conjugate, PCV7 (Prevnar7) 2003-05-05 00:00:00 Completed [facility] 2003-05-05 00:00:00 Completed [facility] Polio (IPV/OPV) 2003-05-05 00:00:00 Completed [facility] Pneumococcal 7 Conjugate, PCV7 (Prevnar7) 2003-05-05 00:00:00 Completed [facility] 2003-05-05 00:00:00 Completed [facility] Polio (IPV/OPV) 2003-05-05 00:00:00 Completed [facility] Pneumococcal 7 Conjugate, PCV7 (Prevnar7) 2003-05-05 00:00:00 Completed [facility] MMR 2003-05-05 00:00:00 Completed [facility] Polio (IPV/OPV) 2003-05-05 00:00:00 Completed [facility] Pneumococcal 7 Conjugate, PCV7 (Prevnar7) 2003-05-05 00:00:00 Completed [facility] MMR 2003-05-05 00:00:00 Completed [facility] Polio (IPV/OPV) 2003-05-05 00:00:00 Completed [facility] Pneumococcal 7 Conjugate, PCV7 (Prevnar7) 2003-05-05 00:00:00 Completed [facility] MMR 2003-05-05 00:00:00 Completed [facility] MMR 2003-05-05 00:00:00 Completed [facility] Polio (IPV/OPV) 2003-05-05 00:00:00 Completed [facility] Pneumococcal 7 Conjugate, PCV7 (Prevnar7) 2003-05-05 00:00:00 Completed [facility] Polio (IPV/OPV) 2003-05-05 00:00:00 Completed [facility] MMR 2003-05-05 00:00:00 Completed [facility] Polio (IPV/OPV) 2003-05-05 00:00:00 Completed [facility] Pneumococcal 7 Conjugate, PCV7 (Prevnar7) 2003-05-05 00:00:00 Completed [facility] Pneumococcal 7 Conjugate, PCV7 (Prevnar7) 2003-05-05 00:00:00 Completed [facility] MMR 2003-05-05 00:00:00 Completed [facility] Polio (IPV/OPV) 2003-05-05 00:00:00 Completed [facility] Pneumococcal 7 Conjugate, PCV7 (Prevnar7) 2003-05-05 00:00:00 Completed [facility] MMR 2003-05-05 00:00:00 Completed [facility] Polio (IPV/OPV) 2003-05-05 00:00:00 Completed [facility] Pneumococcal 7 Conjugate, PCV7 (Prevnar7) 2003-05-05 00:00:00 Completed [facility] MMR 2003-05-05 00:00:00 Completed [facility] Polio (IPV/OPV) 2003-05-05 00:00:00 Completed [facility] MMR 2003-05-05 00:00:00 Completed [facility] Pneumococcal 7 Conjugate, PCV7 (Prevnar7) 2003-05-05 00:00:00 Completed [facility] MMR 2003-05-05 00:00:00 Completed [facility] Polio (IPV/OPV) 2003-05-05 00:00:00 Completed [facility] Pneumococcal 7 Conjugate, PCV7 (Prevnar7) 2003-05-05 00:00:00 Completed [facility] Polio (IPV/OPV) 2003-05-05 00:00:00 Completed [facility] MMR 2003-05-05 00:00:00 Completed [facility] Polio (IPV/OPV) 2003-05-05 00:00:00 Completed [facility] Pneumococcal 7 Conjugate, PCV7 (Prevnar7) 2003-05-05 00:00:00 Completed [facility] Pneumococcal 7 Conjugate, PCV7 (Prevnar7) 2003-05-05 00:00:00 Completed [facility] MMR 2003-05-05 00:00:00 Completed [facility] Polio (IPV/OPV) 2003-05-05 00:00:00 Completed [facility] Pneumococcal 7 Conjugate, PCV7 (Prevnar7) 2003-05-05 00:00:00 Completed [facility] MMR 2003-05-05 00:00:00 Completed [facility] Polio (IPV/OPV) 2003-05-05 00:00:00 Completed [facility] Pneumococcal 7 Conjugate, PCV7 (Prevnar7) 2003-05-05 00:00:00 Completed [facility] MMR 2003-05-05 00:00:00 Completed [facility] Polio (IPV/OPV) 2003-05-05 00:00:00 Completed [facility] Pneumococcal 7 Conjugate, PCV7 (Prevnar7) 2003-05-05 00:00:00 Completed [facility] MMR 2003-05-05 00:00:00 Completed [facility] Polio (IPV/OPV) 2003-05-05 00:00:00 Completed [facility] Pneumococcal 7 Conjugate, PCV7 (Prevnar7) 2003-05-05 00:00:00 Completed [facility] MMR 2003-05-05 00:00:00 Completed [facility] Polio (IPV/OPV) 2003-05-05 00:00:00 Completed [facility] Pneumococcal 7 Conjugate, PCV7 (Prevnar7) 2003-05-05 00:00:00 Completed [facility] MMR 2003-05-05 00:00:00 Completed [facility] Polio (IPV/OPV) 2003-05-05 00:00:00 Completed [facility] Pneumococcal 7 Conjugate, PCV7 (Prevnar7) 2003-05-05 00:00:00 Completed [facility] MMR 2003-05-05 00:00:00 Completed [facility] Polio (IPV/OPV) 2003-05-05 00:00:00 Completed [facility] Pneumococcal 7 Conjugate, PCV7 (Prevnar7) 2003-05-05 00:00:00 Completed [facility] MMR 2003-05-05 00:00:00 Completed [facility] Polio (IPV/OPV) 2003-05-05 00:00:00 Completed [facility] Pneumococcal 7 Conjugate, PCV7 (Prevnar7) 2003-05-05 00:00:00 Completed [facility] MMR 2003-05-05 00:00:00 Completed [facility] Polio (IPV/OPV) 2003-05-05 00:00:00 Completed [facility] Pneumococcal 7 Conjugate, PCV7 (Prevnar7) 2003-05-05 00:00:00 Completed [facility] MMR 2003-05-05 00:00:00 Completed [facility] Polio (IPV/OPV) 2003-05-05 00:00:00 Completed [facility] Pneumococcal 7 Conjugate, PCV7 (Prevnar7) 2003-05-05 00:00:00 Completed [facility] MMR 2003-05-05 00:00:00 Completed [facility] Polio (IPV/OPV) 2003-05-05 00:00:00 Completed [facility] Pneumococcal 7 Conjugate, PCV7 (Prevnar7) 2003-05-05 00:00:00 Completed [facility] MMR 2003-05-05 00:00:00 Completed [facility] Polio (IPV/OPV) 2003-05-05 00:00:00 Completed [facility] Pneumococcal 7 Conjugate, PCV7 (Prevnar7) 2003-05-05 00:00:00 Completed [facility] MMR 2003-05-05 00:00:00 Completed [facility] Polio (IPV/OPV) 2003-05-05 00:00:00 Completed [facility] Pneumococcal 7 Conjugate, PCV7 (Prevnar7) 2003-05-05 00:00:00 Completed [facility] MMR 2003-05-05 00:00:00 Completed [facility] Polio (IPV/OPV) 2003-05-05 00:00:00 Completed [facility] Pneumococcal 7 Conjugate, PCV7 (Prevnar7) 2003-05-05 00:00:00 Completed [facility] MMR 2003-05-05 00:00:00 Completed [facility] Polio (IPV/OPV) 2003-05-05 00:00:00 Completed [facility] Pneumococcal 7 Conjugate, PCV7 (Prevnar7) 2003-05-05 00:00:00 Completed [facility] MMR 2003-05-05 00:00:00 Completed [facility] Polio (IPV/OPV) 2003-05-05 00:00:00 Completed [facility] Pneumococcal 7 Conjugate, PCV7 (Prevnar7) 2003-05-05 00:00:00 Completed [facility] MMR 2003-05-05 00:00:00 Completed [facility] Polio (IPV/OPV) 2003-05-05 00:00:00 Completed [facility] 2003-05-05 00:00:00 Completed [facility] Polio (IPV/OPV) 2003-05-05 00:00:00 Completed [facility] Pneumococcal 7 Conjugate, PCV7 (Prevnar7) 2003-05-05 00:00:00 Completed [facility] Pneumococcal 7 Conjugate, PCV7 (Prevnar7) 2003-05-05 00:00:00 Completed [facility] MMR 2003-05-05 00:00:00 Completed [facility] Polio (IPV/OPV) 2003-05-05 00:00:00 Completed [facility] Pneumococcal 7 Conjugate, PCV7 (Prevnar7) 2003-05-05 00:00:00 Completed [facility] MMR 2003-05-05 00:00:00 Completed [facility] Polio (IPV/OPV) 2003-05-05 00:00:00 Completed [facility] Pneumococcal 7 Conjugate, PCV7 (Prevnar7) 2003-05-05 00:00:00 Completed [facility] MMR 2003-05-05 00:00:00 Completed [facility] Polio (IPV/OPV) 2003-05-05 00:00:00 Completed [facility] Pneumococcal 7 Conjugate, PCV7 (Prevnar7) 2003-05-05 00:00:00 Completed [facility] MMR 2003-05-05 00:00:00 Completed [facility] Polio (IPV/OPV) 2003-05-05 00:00:00 Completed [facility] Pneumococcal 7 Conjugate, PCV7 (Prevnar7) 2003-05-05 00:00:00 Completed [facility] MMR 2003-05-05 00:00:00 Completed [facility] Polio (IPV/OPV) 2003-05-05 00:00:00 Completed [facility] Pneumococcal 7 Conjugate, PCV7 (Prevnar7) 2003-05-05 00:00:00 Completed [facility] MMR 2003-05-05 00:00:00 Completed [facility] MMR 2003-05-05 00:00:00 Completed [facility] Polio (IPV/OPV) 2003-05-05 00:00:00 Completed [facility] Pneumococcal 7 Conjugate, PCV7 (Prevnar7) 2003-05-05 00:00:00 Completed [facility] Polio (IPV/OPV) 2003-05-05 00:00:00 Completed [facility] MMR 2003-05-05 00:00:00 Completed [facility] Polio (IPV/OPV) 2003-05-05 00:00:00 Completed [facility] Pneumococcal 7 Conjugate, PCV7 (Prevnar7) 2003-05-05 00:00:00 Completed [facility] Pneumococcal 7 Conjugate, PCV7 (Prevnar7) 2003-05-05 00:00:00 Completed [facility] MMR 2003-05-05 00:00:00 Completed [facility] Polio (IPV/OPV) 2003-05-05 00:00:00 Completed [facility] Pneumococcal 7 Conjugate, PCV7 (Prevnar7) 2003-05-05 00:00:00 Completed [facility] MMR 2003-05-05 00:00:00 Completed [facility] Polio (IPV/OPV) 2003-05-05 00:00:00 Completed [facility] Pneumococcal 7 Conjugate, PCV7 (Prevnar7) 2003-05-05 00:00:00 Completed [facility] MMR 2003-05-05 00:00:00 Completed [facility] Polio (IPV/OPV) 2003-05-05 00:00:00 Completed [facility] Pneumococcal 7 Conjugate, PCV7 (Prevnar7) 2003-05-05 00:00:00 Completed [facility] MMR 2003-05-05 00:00:00 Completed [facility] Polio (IPV/OPV) 2003-05-05 00:00:00 Completed [facility] Pneumococcal 7 Conjugate, PCV7 (Prevnar7) 2003-05-05 00:00:00 Completed [facility] MMR 2003-05-05 00:00:00 Completed [facility] MMR 2003-05-05 00:00:00 Completed [facility] Polio (IPV/OPV) 2003-05-05 00:00:00 Completed [facility] Pneumococcal 7 Conjugate, PCV7 (Prevnar7) 2003-05-05 00:00:00 Completed [facility] Polio (IPV/OPV) 2003-05-05 00:00:00 Completed [facility] Pneumococcal 7 Conjugate, PCV7 (Prevnar7) 2003-05-05 00:00:00 Completed [facility] MMR 2003-05-05 00:00:00 Completed [facility] Polio (IPV/OPV) 2003-05-05 00:00:00 Completed [facility] Pneumococcal 7 Conjugate, PCV7 (Prevnar7) 2003-05-05 00:00:00 Completed [facility] MMR 2003-05-05 00:00:00 Completed [facility] Polio (IPV/OPV) 2003-05-05 00:00:00 Completed [facility] Pneumococcal 7 Conjugate, PCV7 (Prevnar7) 2003-05-05 00:00:00 Completed [facility] MMR 2003-05-05 00:00:00 Completed [facility] Polio (IPV/OPV) 2003-05-05 00:00:00 Completed [facility] Pneumococcal 7 Conjugate, PCV7 (Prevnar7) 2003-05-05 00:00:00 Completed [facility] MMR 2003-05-05 00:00:00 Completed [facility] Polio (IPV/OPV) 2003-05-05 00:00:00 Completed [facility] Pneumococcal 7 Conjugate, PCV7 (Prevnar7) 2003-05-05 00:00:00 Completed [facility] MMR 2003-05-05 00:00:00 Completed [facility] Polio (IPV/OPV) 2003-05-05 00:00:00 Completed [facility] Pneumococcal 7 Conjugate, PCV7 (Prevnar7) 2003-05-05 00:00:00 Completed [facility] Varicella (varivax)(chicken pox) 2003-05-05 00:00:00 Completed IPV 2003-05-05 00:00:00 Completed MMR 2003-05-05 00:00:00 Completed [facility] Polio (IPV/OPV) 2003-05-05 00:00:00 Completed [facility] Pneumococcal 7 Conjugate, PCV7 (Prevnar7) 2003-05-05 00:00:00 Completed [facility] MMR 2003-05-05 00:00:00 Completed [facility] Polio (IPV/OPV) 2003-05-05 00:00:00 Completed [facility] Pneumococcal 7 Conjugate, PCV7 (Prevnar7) 2003-05-05 00:00:00 Completed [facility] MMR 2003-05-05 00:00:00 Completed [facility] Polio (IPV/OPV) 2003-05-05 00:00:00 Completed [facility] Pneumococcal 7 Conjugate, PCV7 (Prevnar7) 2003-05-05 00:00:00 Completed [facility] MMR 2003-05-05 00:00:00 Completed [facility] Polio (IPV/OPV) 2003-05-05 00:00:00 Completed [facility] Pneumococcal 7 Conjugate, PCV7 (Prevnar7) 2003-05-05 00:00:00 Completed [facility] HIB 4 Dose Schedule 2002 00:00:00 Completed [facility] Hep B, Adol or Pedi Dosage 2002 00:00:00 Completed [facility] Hep B, Adol or Pedi Dosage 2002 00:00:00 Completed [facility] DTAP 2002 00:00:00 Completed [facility] HIB 4 Dose Schedule 2002 00:00:00 Completed [facility] Hep B, Adol or Pedi Dosage 2002 00:00:00 Completed [facility] DTAP 2002 00:00:00 Completed [facility] HIB 4 Dose Schedule 2002 00:00:00 Completed [facility] Hep B, Adol or Pedi Dosage 2002 00:00:00 Completed [facility] DTAP 2002 00:00:00 Completed [facility] HIB 4 Dose Schedule 2002 00:00:00 Completed [facility] Hep B, Adol or Pedi Dosage 2002 00:00:00 Completed [facility] DTAP 2002 00:00:00 Completed [facility] HIB 4 Dose Schedule 2002 00:00:00 Completed [facility] Hep B, Adol or Pedi Dosage 2002 00:00:00 Completed [facility] DTAP 2002 00:00:00 Completed [facility] HIB 4 Dose Schedule 2002 00:00:00 Completed [facility] Hep B, Adol or Pedi Dosage 2002 00:00:00 Completed [facility] DTAP 2002 00:00:00 Completed [facility] HIB 4 Dose Schedule 2002 00:00:00 Completed [facility] Hep B, Adol or Pedi Dosage 2002 00:00:00 Completed [facility] DTAP 2002 00:00:00 Completed [facility] DTAP 2002 00:00:00 Completed [facility] HIB 4 Dose Schedule 2002 00:00:00 Completed [facility] Hep B, Adol or Pedi Dosage 2002 00:00:00 Completed [facility] HIB 4 Dose Schedule 2002 00:00:00 Completed [facility] DTAP 2002 00:00:00 Completed [facility] HIB 4 Dose Schedule 2002 00:00:00 Completed [facility] Hep B, Adol or Pedi Dosage 2002 00:00:00 Completed [facility] Hep B, Adol or Pedi Dosage 2002 00:00:00 Completed [facility] DTAP 2002 00:00:00 Completed [facility] HIB 4 Dose Schedule 2002 00:00:00 Completed [facility] Hep B, Adol or Pedi Dosage 2002 00:00:00 Completed [facility] DTAP 2002 00:00:00 Completed [facility] HIB 4 Dose Schedule 2002 00:00:00 Completed [facility] Hep B, Adol or Pedi Dosage 2002 00:00:00 Completed [facility] DTAP 2002 00:00:00 Completed [facility] HIB 4 Dose Schedule 2002 00:00:00 Completed [facility] Hep B, Adol or Pedi Dosage 2002 00:00:00 Completed [facility] DTAP 2002 00:00:00 Completed [facility] HIB 4 Dose Schedule 2002 00:00:00 Completed [facility] Hep B, Adol or Pedi Dosage 2002 00:00:00 Completed [facility] DTAP 2002 00:00:00 Completed [facility] HIB 4 Dose Schedule 2002 00:00:00 Completed [facility] Hep B, Adol or Pedi Dosage 2002 00:00:00 Completed [facility] DTAP 2002 00:00:00 Completed [facility] HIB 4 Dose Schedule 2002 00:00:00 Completed [facility] Hep B, Adol or Pedi Dosage 2002 00:00:00 Completed [facility] DTAP 2002 00:00:00 Completed [facility] HIB 4 Dose Schedule 2002 00:00:00 Completed [facility] Hep B, Adol or Pedi Dosage 2002 00:00:00 Completed [facility] DTAP 2002 00:00:00 Completed [facility] HIB 4 Dose Schedule 2002 00:00:00 Completed [facility] Hep B, Adol or Pedi Dosage 2002 00:00:00 Completed [facility] DTAP 2002 00:00:00 Completed [facility] HIB 4 Dose Schedule 2002 00:00:00 Completed [facility] Hep B, Adol or Pedi Dosage 2002 00:00:00 Completed [facility] DTAP 2002 00:00:00 Completed [facility] HIB 4 Dose Schedule 2002 00:00:00 Completed [facility] Hep B, Adol or Pedi Dosage 2002 00:00:00 Completed [facility] DTAP 2002 00:00:00 Completed [facility] HIB 4 Dose Schedule 2002 00:00:00 Completed [facility] Hep B, Adol or Pedi Dosage 2002 00:00:00 Completed [facility] DTAP 2002 00:00:00 Completed [facility] HIB 4 Dose Schedule 2002 00:00:00 Completed [facility] DTAP 2002 00:00:00 Completed [facility] HIB 4 Dose Schedule 2002 00:00:00 Completed [facility] Hep B, Adol or Pedi Dosage 2002 00:00:00 Completed [facility] Hep B, Adol or Pedi Dosage 2002 00:00:00 Completed [facility] DTAP 2002 00:00:00 Completed [facility] HIB 4 Dose Schedule 2002 00:00:00 Completed [facility] Hep B, Adol or Pedi Dosage 2002 00:00:00 Completed [facility] DTAP 2002 00:00:00 Completed [facility] HIB 4 Dose Schedule 2002 00:00:00 Completed [facility] Hep B, Adol or Pedi Dosage 2002 00:00:00 Completed [facility] DTAP 2002 00:00:00 Completed [facility] HIB 4 Dose Schedule 2002 00:00:00 Completed [facility] Hep B, Adol or Pedi Dosage 2002 00:00:00 Completed [facility] DTAP 2002 00:00:00 Completed [facility] DTAP 2002 00:00:00 Completed [facility] HIB 4 Dose Schedule 2002 00:00:00 Completed [facility] Hep B, Adol or Pedi Dosage 2002 00:00:00 Completed [facility] HIB 4 Dose Schedule 2002 00:00:00 Completed [facility] DTAP 2002 00:00:00 Completed [facility] Hep B, Adol or Pedi Dosage 2002 00:00:00 Completed [facility] HIB 4 Dose Schedule 2002 00:00:00 Completed [facility] Hep B, Adol or Pedi Dosage 2002 00:00:00 Completed [facility] DTAP 2002 00:00:00 Completed [facility] HIB 4 Dose Schedule 2002 00:00:00 Completed [facility] Hep B, Adol or Pedi Dosage 2002 00:00:00 [facility] [facility] [place] DTAP 2002 00:00:00 Completed [facility] HIB 4 Dose Schedule 2002 00:00:00 Completed [facility] Hep B, Adol or Pedi Dosage 2002 00:00:00 Completed [facility] DTAP 2002 00:00:00 Completed [facility] HIB 4 Dose Schedule 2002 00:00:00 Completed [facility] Hep B, Adol or Pedi Dosage 2002 00:00:00 Completed [facility] DTAP 2002 00:00:00 Completed [facility] HIB 4 Dose Schedule 2002 00:00:00 Completed [facility] Hep B, Adol or Pedi Dosage 2002 00:00:00 Completed [facility] DTAP 2002 00:00:00 Completed [facility] HIB 4 Dose Schedule 2002 00:00:00 Completed [facility] Hep B, Adol or Pedi Dosage 2002 00:00:00 Completed [facility] DTAP 2002 00:00:00 Completed [facility] HIB 4 Dose Schedule 2002 00:00:00 Completed [facility] Hep B, Adol or Pedi Dosage 2002 00:00:00 Completed [facility] DTAP 2002 00:00:00 Completed [facility] HIB 4 Dose Schedule 2002 00:00:00 Completed [facility] Hep B, Adol or Pedi Dosage 2002 00:00:00 Completed [facility] DTAP 2002 00:00:00 Completed [facility] HIB 4 Dose Schedule 2002 00:00:00 Completed [facility] Hep B, Adol or Pedi Dosage 2002 00:00:00 Completed [facility] DTAP 2002 00:00:00 Completed [facility] HIB 4 Dose Schedule 2002 00:00:00 Completed [facility] Hep B, Adol or Pedi Dosage 2002 00:00:00 Completed [facility] DTAP 2002 00:00:00 Completed [facility] HIB 4 Dose Schedule 2002 00:00:00 Completed [facility] Hep B, Adol or Pedi Dosage 2002 00:00:00 Completed [facility] DTAP 2002 00:00:00 Completed [facility] HIB 4 Dose Schedule 2002 00:00:00 Completed [facility] Hep B, Adol or Pedi Dosage 2002 00:00:00 Completed [facility] DTAP 2002 00:00:00 Completed [facility] HIB 4 Dose Schedule 2002 00:00:00 Completed [facility] Hep B, Adol or Pedi Dosage 2002 00:00:00 Completed [facility] DTAP 2002 00:00:00 Completed [facility] HIB 4 Dose Schedule 2002 00:00:00 Completed [facility] Hep B, Adol or Pedi Dosage 2002 00:00:00 Completed [facility] DTAP 2002 00:00:00 Completed [facility] HIB 4 Dose Schedule 2002 00:00:00 Completed [facility] Hep B, Adol or Pedi Dosage 2002 00:00:00 Completed [facility] DTAP 2002 00:00:00 Completed [facility] HIB 4 Dose Schedule 2002 00:00:00 Completed [facility] Hep B, Adol or Pedi Dosage 2002 00:00:00 Completed [facility] DTAP 2002 00:00:00 Completed [facility] DTAP 2002 00:00:00 Completed [facility] HIB 4 Dose Schedule 2002 00:00:00 Completed [facility] Hep B, Adol or Pedi Dosage 2002 00:00:00 Completed [facility] HIB 4 Dose Schedule 2002 00:00:00 Completed [facility] DTAP 2002 00:00:00 Completed [facility] HIB 4 Dose Schedule 2002 00:00:00 Completed [facility] Hep B, Adol or Pedi Dosage 2002 00:00:00 Completed [facility] DTAP 2002 00:00:00 Completed [facility] HIB 4 Dose Schedule 2002 00:00:00 Completed [facility] Hep B, Adol or Pedi Dosage 2002 00:00:00 Completed [facility] Hep B, Adol or Pedi Dosage 2002 00:00:00 Completed [facility] DTAP 2002 00:00:00 Completed [facility] HIB 4 Dose Schedule 2002 00:00:00 Completed [facility] Hep B, Adol or Pedi Dosage 2002 00:00:00 Completed [facility] DTAP 2002 00:00:00 Completed [facility] HIB 4 Dose Schedule 2002 00:00:00 Completed [facility] Hep B, Adol or Pedi Dosage 2002 00:00:00 Completed [facility] DTAP 2002 00:00:00 Completed [facility] HIB 4 Dose Schedule 2002 00:00:00 Completed [facility] Hep B, Adol or Pedi Dosage 2002 00:00:00 Completed [facility] DTAP 2002 00:00:00 Completed [facility] HIB 4 Dose Schedule 2002 00:00:00 Completed [facility] Hep B, Adol or Pedi Dosage 2002 00:00:00 Completed [facility] DTAP 2002 00:00:00 Completed [facility] DTAP 2002 00:00:00 Completed [facility] HIB 4 Dose Schedule 2002 00:00:00 Completed [facility] Hep B, Adol or Pedi Dosage 2002 00:00:00 Completed [facility] HIB 4 Dose Schedule 2002 00:00:00 Completed [facility] DTAP 2002 00:00:00 Completed [facility] HIB 4 Dose Schedule 2002 00:00:00 Completed [facility] Hep B, Adol or Pedi Dosage 2002 00:00:00 Completed [facility] Hep B, Adol or Pedi Dosage 2002 00:00:00 Completed [facility] DTAP 2002 00:00:00 Completed [facility] HIB 4 Dose Schedule 2002 00:00:00 Completed [facility] Hep B, Adol or Pedi Dosage 2002 00:00:00 Completed [facility] DTAP 2002 00:00:00 Completed [facility] HIB 4 Dose Schedule 2002 00:00:00 Completed [facility] Hep B, Adol or Pedi Dosage 2002 00:00:00 Completed [facility] DTAP 2002 00:00:00 Completed [facility] HIB 4 Dose Schedule 2002 00:00:00 Completed [facility] Hep B, Adol or Pedi Dosage 2002 00:00:00 Completed [facility] DTAP 2002 00:00:00 Completed [facility] HIB 4 Dose Schedule 2002 00:00:00 Completed [facility] Hep B, Adol or Pedi Dosage 2002 00:00:00 Completed [facility] DTAP 2002 00:00:00 Completed [facility] DTAP 2002 00:00:00 Completed [facility] HIB 4 Dose Schedule 2002 00:00:00 Completed [facility] Hep B, Adol or Pedi Dosage 2002 00:00:00 Completed [facility] HIB 4 Dose Schedule 2002 00:00:00 Completed [facility] DTAP 2002 00:00:00 Completed [facility] HIB 4 Dose Schedule 2002 00:00:00 Completed [facility] Hep B, Adol or Pedi Dosage 2002 00:00:00 Completed [facility] Hep B, Adol or Pedi Dosage 2002 00:00:00 Completed [facility] DTAP 2002 00:00:00 Completed [facility] HIB 4 Dose Schedule 2002 00:00:00 Completed [facility] Hep B, Adol or Pedi Dosage 2002 00:00:00 Completed [facility] DTAP 2002 00:00:00 Completed [facility] HIB 4 Dose Schedule 2002 00:00:00 Completed [facility] DTAP 2002 00:00:00 Completed [facility] HIB 4 Dose Schedule 2002 00:00:00 Completed [facility] Hep B, Adol or Pedi Dosage 2002 00:00:00 Completed [facility] DTAP 2002 00:00:00 Completed [facility] HIB 4 Dose Schedule 2002 00:00:00 Completed [facility] Hep B, Adol or Pedi Dosage 2002 00:00:00 Completed [facility] DTAP 2002 00:00:00 Completed [facility] HIB 4 Dose Schedule 2002 00:00:00 Completed [facility] Hep B, Adol or Pedi Dosage 2002 00:00:00 Completed [facility] DTAP 2002 00:00:00 Completed [facility] HIB 4 Dose Schedule 2002 00:00:00 Completed [facility] Hep B, Adol or Pedi Dosage 2002 00:00:00 Completed [facility] DTAP 2002 00:00:00 Completed [facility] HIB 4 Dose Schedule 2002 00:00:00 Completed [facility] Hep B, Adol or Pedi Dosage 2002 00:00:00 Completed [facility] DTAP 2002 00:00:00 Completed HIB 4 Dose Schedule 2002 00:00:00 Completed [facility] DTAP 2002 00:00:00 Completed [facility] HIB 4 Dose Schedule 2002 00:00:00 Completed [facility] DTaP, Unspecified Formulation 2002 00:00:00 Completed Hep B, Adol or Pedi Dosage 2002 00:00:00 Completed [facility] DTAP 2002 00:00:00 Completed [facility] HIB 4 Dose Schedule 2002 00:00:00 Completed [facility] Hep B, Adol or Pedi Dosage 2002 00:00:00 Completed [facility] DTAP 2002 00:00:00 Completed [facility] HIB 4 Dose Schedule 2002 00:00:00 Completed [facility] Hep B, Adol or Pedi Dosage 2002 00:00:00 Completed [facility] DTAP 2002 00:00:00 Completed [facility] HIB 4 Dose Schedule 2002 00:00:00 Completed [facility] Hep B, Adol or Pedi Dosage 2002 00:00:00 Completed [facility] DTAP 2002 00:00:00 Completed [facility] HIB 4 Dose Schedule 2002 00:00:00 Completed [facility] Polio (IPV/OPV) 2002 00:00:00 Completed [facility] DTAP 2002 00:00:00 Completed [facility] HIB 4 Dose Schedule 2002 00:00:00 Completed [facility] Polio (IPV/OPV) 2002 00:00:00 Completed [facility] Polio (IPV/OPV) 2002 00:00:00 Completed [facility] DTAP 2002 00:00:00 Completed [facility] HIB 4 Dose Schedule 2002 00:00:00 Completed [facility] Polio (IPV/OPV) 2002 00:00:00 Completed [facility] DTAP 2002 00:00:00 Completed [facility] HIB 4 Dose Schedule 2002 00:00:00 Completed [facility] Polio (IPV/OPV) 2002 00:00:00 Completed [facility] DTAP 2002 00:00:00 Completed [facility] HIB 4 Dose Schedule 2002 00:00:00 Completed [facility] Polio (IPV/OPV) 2002 00:00:00 Completed [facility] DTAP 2002 00:00:00 Completed [facility] HIB 4 Dose Schedule 2002 00:00:00 Completed [facility] Polio (IPV/OPV) 2002 00:00:00 Completed [facility] DTAP 2002 00:00:00 Completed [facility] HIB 4 Dose Schedule 2002 00:00:00 Completed [facility] DTAP 2002 00:00:00 Completed [facility] Polio (IPV/OPV) 2002 00:00:00 Completed [facility] DTAP 2002 00:00:00 Completed [facility] HIB 4 Dose Schedule 2002 00:00:00 Completed [facility] HIB 4 Dose Schedule 2002 00:00:00 Completed [facility] Polio (IPV/OPV) 2002 00:00:00 Completed [facility] DTAP 2002 00:00:00 Completed [facility] HIB 4 Dose Schedule 2002 00:00:00 Completed [facility] Polio (IPV/OPV) 2002 00:00:00 Completed [facility] DTAP 2002 00:00:00 Completed [facility] HIB 4 Dose Schedule 2002 00:00:00 Completed [facility] Polio (IPV/OPV) 2002 00:00:00 Completed [facility] Polio (IPV/OPV) 2002 00:00:00 Completed [facility] DTAP 2002 00:00:00 Completed [facility] HIB 4 Dose Schedule 2002 00:00:00 Completed [facility] Polio (IPV/OPV) 2002 00:00:00 Completed [facility] DTAP 2002 00:00:00 Completed [facility] HIB 4 Dose Schedule 2002 00:00:00 Completed [facility] Polio (IPV/OPV) 2002 00:00:00 Completed [facility] DTAP 2002 00:00:00 Completed [facility] HIB 4 Dose Schedule 2002 00:00:00 Completed [facility] Polio (IPV/OPV) 2002 00:00:00 Completed [facility] DTAP 2002 00:00:00 Completed [facility] HIB 4 Dose Schedule 2002 00:00:00 Completed [facility] Polio (IPV/OPV) 2002 00:00:00 Completed [facility] DTAP 2002 00:00:00 Completed [facility] HIB 4 Dose Schedule 2002 00:00:00 Completed [facility] Polio (IPV/OPV) 2002 00:00:00 Completed [facility] DTAP 2002 00:00:00 Completed [facility] HIB 4 Dose Schedule 2002 00:00:00 Completed [facility] Polio (IPV/OPV) 2002 00:00:00 Completed [facility] DTAP 2002 00:00:00 Completed [facility] HIB 4 Dose Schedule 2002 00:00:00 Completed [facility] Polio (IPV/OPV) 2002 00:00:00 Completed [facility] DTAP 2002 00:00:00 Completed [facility] HIB 4 Dose Schedule 2002 00:00:00 Completed [facility] Polio (IPV/OPV) 2002 00:00:00 Completed [facility] DTAP 2002 00:00:00 Completed [facility] HIB 4 Dose Schedule 2002 00:00:00 Completed [facility] Polio (IPV/OPV) 2002 00:00:00 Completed [facility] DTAP 2002 00:00:00 Completed [facility] HIB 4 Dose Schedule 2002 00:00:00 Completed [facility] DTAP 2002 00:00:00 Completed [facility] Polio (IPV/OPV) 2002 00:00:00 Completed [facility] HIB 4 Dose Schedule 2002 00:00:00 Completed [facility] DTAP 2002 00:00:00 Completed [facility] HIB 4 Dose Schedule 2002 00:00:00 Completed [facility] Polio (IPV/OPV) 2002 00:00:00 Completed [facility] DTAP 2002 00:00:00 Completed [facility] HIB 4 Dose Schedule 2002 00:00:00 Completed [facility] Polio (IPV/OPV) 2002 00:00:00 Completed [facility] Polio (IPV/OPV) 2002 00:00:00 Completed [facility] DTAP 2002 00:00:00 Completed [facility] HIB 4 Dose Schedule 2002 00:00:00 Completed [facility] Polio (IPV/OPV) 2002 00:00:00 Completed [facility] DTAP 2002 00:00:00 Completed [facility] HIB 4 Dose Schedule 2002 00:00:00 Completed [facility] Polio (IPV/OPV) 2002 00:00:00 Completed [facility] DTAP 2002 00:00:00 Completed [facility] DTAP 2002 00:00:00 Completed [facility] HIB 4 Dose Schedule 2002 00:00:00 Completed [facility] HIB 4 Dose Schedule 2002 00:00:00 Completed [facility] Polio (IPV/OPV) 2002 00:00:00 Completed [facility] DTAP 2002 00:00:00 Completed [facility] HIB 4 Dose Schedule 2002 00:00:00 Completed [facility] Polio (IPV/OPV) 2002 00:00:00 Completed [facility] DTAP 2002 00:00:00 Completed [facility] HIB 4 Dose Schedule 2002 00:00:00 Completed [facility] Polio (IPV/OPV) 2002 00:00:00 Completed [facility] Polio (IPV/OPV) 2002 00:00:00 Completed [facility] DTAP 2002 00:00:00 Completed [facility] HIB 4 Dose Schedule 2002 00:00:00 Completed [facility] Polio (IPV/OPV) 2002 00:00:00 Completed [facility] DTAP 2002 00:00:00 Completed [facility] HIB 4 Dose Schedule 2002 00:00:00 Completed [facility] Polio (IPV/OPV) 2002 00:00:00 Completed [facility] DTAP 2002 00:00:00 Completed [facility] HIB 4 Dose Schedule 2002 00:00:00 Completed [facility] Polio (IPV/OPV) 2002 00:00:00 Completed [facility] DTAP 2002 00:00:00 Completed [facility] HIB 4 Dose Schedule 2002 00:00:00 Completed [facility] Polio (IPV/OPV) 2002 00:00:00 Completed [facility] DTAP 2002 00:00:00 Completed [facility] HIB 4 Dose Schedule 2002 00:00:00 Completed [facility] Polio (IPV/OPV) 2002 00:00:00 Completed [facility] DTAP 2002 00:00:00 Completed [facility] HIB 4 Dose Schedule 2002 00:00:00 Completed [facility] Polio (IPV/OPV) 2002 00:00:00 Completed [facility] DTAP 2002 00:00:00 Completed [facility] HIB 4 Dose Schedule 2002 00:00:00 Completed [facility] Polio (IPV/OPV) 2002 00:00:00 Completed [facility] DTAP 2002 00:00:00 Completed [facility] HIB 4 Dose Schedule 2002 00:00:00 Completed [facility] Polio (IPV/OPV) 2002 00:00:00 Completed [facility] DTAP 2002 00:00:00 Completed [facility] HIB 4 Dose Schedule 2002 00:00:00 Completed [facility] Polio (IPV/OPV) 2002 00:00:00 Completed [facility] DTAP 2002 00:00:00 Completed [facility] HIB 4 Dose Schedule 2002 00:00:00 Completed [facility] Polio (IPV/OPV) 2002 00:00:00 Completed [facility] DTAP 2002 00:00:00 Completed [facility] HIB 4 Dose Schedule 2002 00:00:00 Completed [facility] Polio (IPV/OPV) 2002 00:00:00 Completed [facility] DTAP 2002 00:00:00 Completed [facility] HIB 4 Dose Schedule 2002 00:00:00 Completed [facility] Polio (IPV/OPV) 2002 00:00:00 Completed [facility] DTAP 2002 00:00:00 Completed [facility] HIB 4 Dose Schedule 2002 00:00:00 Completed [facility] Polio (IPV/OPV) 2002 00:00:00 Completed [facility] DTAP 2002 00:00:00 Completed [facility] HIB 4 Dose Schedule 2002 00:00:00 Completed [facility] Polio (IPV/OPV) 2002 00:00:00 Completed [facility] DTAP 2002 00:00:00 Completed [facility] DTAP 2002 00:00:00 Completed [facility] HIB 4 Dose Schedule 2002 00:00:00 Completed [facility] Polio (IPV/OPV) 2002 00:00:00 Completed [facility] HIB 4 Dose Schedule 2002 00:00:00 Completed [facility] DTAP 2002 00:00:00 Completed [facility] HIB 4 Dose Schedule 2002 00:00:00 Completed [facility] Polio (IPV/OPV) 2002 00:00:00 Completed [facility] DTAP 2002 00:00:00 Completed [facility] HIB 4 Dose Schedule 2002 00:00:00 Completed [facility] Polio (IPV/OPV) 2002 00:00:00 Completed [facility] Polio (IPV/OPV) 2002 00:00:00 Completed [facility] DTAP 2002 00:00:00 Completed [facility] HIB 4 Dose Schedule 2002 00:00:00 Completed [facility] Polio (IPV/OPV) 2002 00:00:00 Completed [facility] DTAP 2002 00:00:00 Completed [facility] HIB 4 Dose Schedule 2002 00:00:00 Completed [facility] Polio (IPV/OPV) 2002 00:00:00 Completed [facility] DTAP 2002 00:00:00 Completed [facility] HIB 4 Dose Schedule 2002 00:00:00 Completed [facility] Polio (IPV/OPV) 2002 00:00:00 Completed [facility] DTAP 2002 00:00:00 Completed [facility] HIB 4 Dose Schedule 2002 00:00:00 Completed [facility] Polio (IPV/OPV) 2002 00:00:00 Completed [facility] DTAP 2002 00:00:00 Completed [facility] DTAP 2002 00:00:00 Completed [facility] HIB 4 Dose Schedule 2002 00:00:00 Completed [facility] Polio (IPV/OPV) 2002 00:00:00 Completed [facility] HIB 4 Dose Schedule 2002 00:00:00 Completed [facility] DTAP 2002 00:00:00 Completed [facility] HIB 4 Dose Schedule 2002 00:00:00 Completed [facility] Polio (IPV/OPV) 2002 00:00:00 Completed [facility] DTAP 2002 00:00:00 Completed [facility] HIB 4 Dose Schedule 2002 00:00:00 Completed [facility] Polio (IPV/OPV) 2002 00:00:00 Completed [facility] Polio (IPV/OPV) 2002 00:00:00 Completed [facility] DTAP 2002 00:00:00 Completed [facility] HIB 4 Dose Schedule 2002 00:00:00 Completed [facility] Polio (IPV/OPV) 2002 00:00:00 Completed [facility] DTAP 2002 00:00:00 Completed [facility] HIB 4 Dose Schedule 2002 00:00:00 Completed [facility] Polio (IPV/OPV) 2002 00:00:00 Completed [facility] DTAP 2002 00:00:00 Completed [facility] HIB 4 Dose Schedule 2002 00:00:00 Completed [facility] Polio (IPV/OPV) 2002 00:00:00 Completed [facility] DTAP 2002 00:00:00 Completed [facility] DTAP 2002 00:00:00 Completed [facility] HIB 4 Dose Schedule 2002 00:00:00 Completed [facility] Polio (IPV/OPV) 2002 00:00:00 Completed [facility] HIB 4 Dose Schedule 2002 00:00:00 Completed [facility] DTAP 2002 00:00:00 Completed [facility] HIB 4 Dose Schedule 2002 00:00:00 [facility] [place] Polio (IPV/OPV) 2002 00:00:00 Completed [facility] [place] DTAP 2002 00:00:00 Completed [facility] [place] HIB 4 Dose Schedule 2002 00:00:00 Completed [facility] [place] Polio (IPV/OPV) 2002 00:00:00 Completed [facility] [place] DTAP 2002 00:00:00 Completed [facility] [place] Polio (IPV/OPV) 2002 00:00:00 Completed [facility] [place] HIB 4 Dose Schedule 2002 00:00:00 Completed [facility] [place] DTAP 2002 00:00:00 Completed [facility] [place] HIB 4 Dose Schedule 2002 00:00:00 Completed [facility] [place] Polio (IPV/OPV) 2002 00:00:00 Completed [facility] [place] DTAP 2002 00:00:00 Completed [facility] [place] HIB 4 Dose Schedule 2002 00:00:00 Completed [facility] [place] Polio (IPV/OPV) 2002 00:00:00 Completed [facility] [place] DTAP 2002 00:00:00 Completed [facility] [place] HIB 4 Dose Schedule 2002 00:00:00 Completed [facility] [place] Polio (IPV/OPV) 2002 00:00:00 Completed [facility] [place] DTAP 2002 00:00:00 Completed [facility] [place] HIB 4 Dose Schedule 2002 00:00:00 Completed [facility] [place] Polio (IPV/OPV) 2002 00:00:00 Completed [facility] [place] DTAP 2002 00:00:00 Completed [facility] [place] HIB 4 Dose Schedule 2002 00:00:00 Completed [facility] [place] Polio (IPV/OPV) 2002 00:00:00 Completed [facility] [place] DTAP 2002 00:00:00 Completed HIB 4 Dose Schedule 2002 00:00:00 Completed [facility] [place] Polio (IPV/OPV) 2002 00:00:00 Completed DTAP 2002 00:00:00 Completed [facility] [place] HIB 4 Dose Schedule 2002 00:00:00 Completed [facility] [place] DTaP, Unspecified Formulation 2002 00:00:00 Completed IPV 2002 00:00:00 Completed Polio (IPV/OPV) 2002 00:00:00 Completed [facility] [place] DTAP 2002 00:00:00 Completed [facility] [place] HIB 4 Dose Schedule 2002 00:00:00 Completed [facility] [place] Polio (IPV/OPV) 2002 00:00:00 Completed [facility] [place] DTAP 2002 00:00:00 Completed [facility] [place] HIB 4 Dose Schedule 2002 00:00:00 Completed [facility] [place] Polio (IPV/OPV) 2002 00:00:00 Completed [facility] [place] DTAP 2002 00:00:00 Completed [facility] [place] HIB 4 Dose Schedule 2002 00:00:00 Completed [facility] [place] Polio (IPV/OPV) 2002 00:00:00 Completed [facility] [place] DTAP 2002 00:00:00 Completed [facility] [place] Hep B, Adol or Pedi Dosage 2002 00:00:00 Completed [facility] [place] Hep B, Adol or Pedi Dosage 2002 00:00:00 Completed [facility] [place] Polio (IPV/OPV) 2002 00:00:00 Completed [facility] [place] DTAP 2002 00:00:00 Completed [facility] [place] HIB 4 Dose Schedule 2002 00:00:00 Completed [facility] [place] Hep B, Adol or Pedi Dosage 2002 00:00:00 Completed [facility] [place] Polio (IPV/OPV) 2002 00:00:00 Completed [facility] [place] Polio (IPV/OPV) 2002 00:00:00 Completed [facility] [place] DTAP 2002 00:00:00 Completed [facility] [place] HIB 4 Dose Schedule 2002 00:00:00 Completed [facility] [place] Hep B, Adol or Pedi Dosage 2002 00:00:00 Completed [facility] [place] Polio (IPV/OPV) 2002 00:00:00 Completed [facility] [place] DTAP 2002 00:00:00 Completed [facility] [place] HIB 4 Dose Schedule 2002 00:00:00 Completed [facility] [place] Hep B, Adol or Pedi Dosage 2002 00:00:00 Completed [facility] [place] Polio (IPV/OPV) 2002 00:00:00 Completed [facility] [place] DTAP 2002 00:00:00 Completed [facility] [place] HIB 4 Dose Schedule 2002 00:00:00 Completed [facility] [place] Hep B, Adol or Pedi Dosage 2002 00:00:00 Completed [facility] [place] Polio (IPV/OPV) 2002 00:00:00 Completed [facility] [place] DTAP 2002 00:00:00 Completed [facility] [place] HIB 4 Dose Schedule 2002 00:00:00 Completed [facility] [place] Hep B, Adol or Pedi Dosage 2002 00:00:00 Completed [facility] [place] Polio (IPV/OPV) 2002 00:00:00 Completed [facility] [place] DTAP 2002 00:00:00 Completed [facility] [place] DTAP 2002 00:00:00 Completed [facility] [place] HIB 4 Dose Schedule 2002 00:00:00 Completed [facility] [place] Hep B, Adol or Pedi Dosage 2002 00:00:00 Completed [facility] [place] Polio (IPV/OPV) 2002 00:00:00 Completed [facility] [place] DTAP 2002 00:00:00 Completed [facility] [place] HIB 4 Dose Schedule 2002 00:00:00 Completed [facility] [place] HIB 4 Dose Schedule 2002 00:00:00 Completed [facility] [place] Hep B, Adol or Pedi Dosage 2002 00:00:00 Completed [facility] [place] Polio (IPV/OPV) 2002 00:00:00 Completed [facility] [place] DTAP 2002 00:00:00 Completed [facility] [place] HIB 4 Dose Schedule 2002 00:00:00 Completed [facility] [place] Hep B, Adol or Pedi Dosage 2002 00:00:00 Completed [facility] [place] Polio (IPV/OPV) 2002 00:00:00 Completed [facility] [place] Hep B, Adol or Pedi Dosage 2002 00:00:00 Completed [facility] [place] Polio (IPV/OPV) 2002 00:00:00 Completed [facility] [place] DTAP 2002 00:00:00 Completed [facility] [place] HIB 4 Dose Schedule 2002 00:00:00 Completed [facility] [place] Hep B, Adol or Pedi Dosage 2002 00:00:00 Completed [facility] [place] Polio (IPV/OPV) 2002 00:00:00 Completed [facility] [place] DTAP 2002 00:00:00 Completed [facility] [place] HIB 4 Dose Schedule 2002 00:00:00 Completed [facility] [place] Hep B, Adol or Pedi Dosage 2002 00:00:00 Completed [facility] [place] Polio (IPV/OPV) 2002 00:00:00 Completed [facility] [place] DTAP 2002 00:00:00 Completed [facility] [place] HIB 4 Dose Schedule 2002 00:00:00 Completed [facility] [place] Hep B, Adol or Pedi Dosage 2002 00:00:00 Completed [facility] [place] Polio (IPV/OPV) 2002 00:00:00 Completed [facility] [place] DTAP 2002 00:00:00 Completed [facility] [place] HIB 4 Dose Schedule 2002 00:00:00 Completed [facility] [place] Hep B, Adol or Pedi Dosage 2002 00:00:00 Completed [facility] [place] Polio (IPV/OPV) 2002 00:00:00 Completed [facility] [place] DTAP 2002 00:00:00 Completed [facility] [place] HIB 4 Dose Schedule 2002 00:00:00 Completed [facility] [place] Hep B, Adol or Pedi Dosage 2002 00:00:00 Completed [facility] [place] Polio (IPV/OPV) 2002 00:00:00 Completed [facility] [place] DTAP 2002 00:00:00 Completed [facility] [place] HIB 4 Dose Schedule 2002 00:00:00 Completed [facility] [place] Hep B, Adol or Pedi Dosage 2002 00:00:00 Completed [facility] [place] Polio (IPV/OPV) 2002 00:00:00 Completed [facility] [place] DTAP 2002 00:00:00 Completed [facility] [place] HIB 4 Dose Schedule 2002 00:00:00 Completed [facility] [place] Hep B, Adol or Pedi Dosage 2002 00:00:00 Completed [facility] [place] Polio (IPV/OPV) 2002 00:00:00 Completed [facility] [place] DTAP 2002 00:00:00 Completed [facility] [place] HIB 4 Dose Schedule 2002 00:00:00 Completed [facility] [place] Hep B, Adol or Pedi Dosage 2002 00:00:00 Completed [facility] [place] Polio (IPV/OPV) 2002 00:00:00 Completed [facility] [place] DTAP 2002 00:00:00 Completed [facility] [place] HIB 4 Dose Schedule 2002 00:00:00 Completed [facility] [place] Hep B, Adol or Pedi Dosage 2002 00:00:00 Completed [facility] [place] Polio (IPV/OPV) 2002 00:00:00 Completed [facility] [place] DTAP 2002 00:00:00 Completed [facility] [place] HIB 4 Dose Schedule 2002 00:00:00 Completed [facility] [place] Hep B, Adol or Pedi Dosage 2002 00:00:00 Completed [facility] [place] Polio (IPV/OPV) 2002 00:00:00 Completed [facility] [place] DTAP 2002 00:00:00 Completed [facility] [place] HIB 4 Dose Schedule 2002 00:00:00 Completed [facility] [place] DTAP 2002 00:00:00 Completed [facility] [place] Hep B, Adol or Pedi Dosage 2002 00:00:00 Completed [facility] [place] Polio (IPV/OPV) 2002 00:00:00 Completed [facility] [place] HIB 4 Dose Schedule 2002 00:00:00 Completed [facility] [place] DTAP 2002 00:00:00 Completed [facility] [place] HIB 4 Dose Schedule 2002 00:00:00 Completed [facility] [place] Hep B, Adol or Pedi Dosage 2002 00:00:00 Completed [facility] [place] Polio (IPV/OPV) 2002 00:00:00 Completed [facility] [place] Hep B, Adol or Pedi Dosage 2002 00:00:00 Completed [facility] [place] DTAP 2002 00:00:00 Completed [facility] [place] HIB 4 Dose Schedule 2002 00:00:00 Completed [facility] [place] Hep B, Adol or Pedi Dosage 2002 00:00:00 Completed [facility] [place] Polio (IPV/OPV) 2002 00:00:00 Completed [facility] [place] Polio (IPV/OPV) 2002 00:00:00 Completed [facility] [place] DTAP 2002 00:00:00 Completed [facility] [place] HIB 4 Dose Schedule 2002 00:00:00 Completed [facility] [place] Hep B, Adol or Pedi Dosage 2002 00:00:00 Completed [facility] [place] Polio (IPV/OPV) 2002 00:00:00 Completed [facility] [place] DTAP 2002 00:00:00 Completed [facility] [place] HIB 4 Dose Schedule 2002 00:00:00 Completed [facility] [place] Hep B, Adol or Pedi Dosage 2002 00:00:00 Completed [facility] [place] Polio (IPV/OPV) 2002 00:00:00 Completed [facility] [place] DTAP 2002 00:00:00 Completed [facility] [place] DTAP 2002 00:00:00 Completed [facility] [place] HIB 4 Dose Schedule 2002 00:00:00 Completed [facility] [place] HIB 4 Dose Schedule 2002 00:00:00 Completed [facility] [place] Hep B, Adol or Pedi Dosage 2002 00:00:00 Completed [facility] [place] Polio (IPV/OPV) 2002 00:00:00 Completed [facility] [place] Hep B, Adol or Pedi Dosage 2002 00:00:00 Completed [facility] [place] DTAP 2002 00:00:00 Completed [facility] [place] HIB 4 Dose Schedule 2002 00:00:00 Completed [facility] [place] Hep B, Adol or Pedi Dosage 2002 00:00:00 Completed [facility] [place] Polio (IPV/OPV) 2002 00:00:00 Completed [facility] [place] Polio (IPV/OPV) 2002 00:00:00 Completed [facility] [place] DTAP 2002 00:00:00 Completed [facility] [place] HIB 4 Dose Schedule 2002 00:00:00 Completed [facility] [place] Hep B, Adol or Pedi Dosage 2002 00:00:00 Completed [facility] [place] Polio (IPV/OPV) 2002 00:00:00 Completed [facility] [place] DTAP 2002 00:00:00 Completed [facility] [place] HIB 4 Dose Schedule 2002 00:00:00 Completed [facility] [place] Hep B, Adol or Pedi Dosage 2002 00:00:00 Completed [facility] [place] Polio (IPV/OPV) 2002 00:00:00 Completed [facility] [place] DTAP 2002 00:00:00 Completed [facility] [place] HIB 4 Dose Schedule 2002 00:00:00 Completed [facility] [place] Hep B, Adol or Pedi Dosage 2002 00:00:00 Completed [facility] [place] Polio (IPV/OPV) 2002 00:00:00 Completed [facility] [place] DTAP 2002 00:00:00 Completed [facility] [place] HIB 4 Dose Schedule 2002 00:00:00 Completed [facility] [place] Hep B, Adol or Pedi Dosage 2002 00:00:00 Completed [facility] [place] Polio (IPV/OPV) 2002 00:00:00 Completed [facility] [place] DTAP 2002 00:00:00 Completed [facility] [place] HIB 4 Dose Schedule 2002 00:00:00 Completed [facility] [place] Hep B, Adol or Pedi Dosage 2002 00:00:00 Completed [facility] [place] Polio (IPV/OPV) 2002 00:00:00 Completed [facility] [place] DTAP 2002 00:00:00 Completed [facility] [place] HIB 4 Dose Schedule 2002 00:00:00 Completed [facility] [place] Hep B, Adol or Pedi Dosage 2002 00:00:00 Completed [facility] [place] Polio (IPV/OPV) 2002 00:00:00 Completed [facility] [place] DTAP 2002 00:00:00 Completed [facility] [place] HIB 4 Dose Schedule 2002 00:00:00 Completed [facility] [place] Hep B, Adol or Pedi Dosage 2002 00:00:00 Completed [facility] [place] Polio (IPV/OPV) 2002 00:00:00 Completed [facility] [place] DTAP 2002 00:00:00 Completed [facility] [place] HIB 4 Dose Schedule 2002 00:00:00 Completed [facility] [place] Hep B, Adol or Pedi Dosage 2002 00:00:00 Completed [facility] [place] Polio (IPV/OPV) 2002 00:00:00 Completed [facility] [place] DTAP 2002 00:00:00 Completed [facility] [place] HIB 4 Dose Schedule 2002 00:00:00 Completed [facility] [place] Hep B, Adol or Pedi Dosage 2002 00:00:00 Completed [facility] [place] Polio (IPV/OPV) 2002 00:00:00 Completed [facility] [place] DTAP 2002 00:00:00 Completed [facility] [place] HIB 4 Dose Schedule 2002 00:00:00 Completed [facility] [place] Hep B, Adol or Pedi Dosage 2002 00:00:00 Completed [facility] [place] Polio (IPV/OPV) 2002 00:00:00 Completed [facility] [place] DTAP 2002 00:00:00 Completed [facility] [place] HIB 4 Dose Schedule 2002 00:00:00 Completed [facility] [place] Hep B, Adol or Pedi Dosage 2002 00:00:00 Completed [facility] [place] Polio (IPV/OPV) 2002 00:00:00 Completed [facility] [place] DTAP 2002 00:00:00 Completed [facility] [place] HIB 4 Dose Schedule 2002 00:00:00 Completed [facility] [place] Hep B, Adol or Pedi Dosage 2002 00:00:00 Completed [facility] [place] Polio (IPV/OPV) 2002 00:00:00 Completed [facility] [place] DTAP 2002 00:00:00 Completed [facility] [place] HIB 4 Dose Schedule 2002 00:00:00 Completed [facility] [place] Hep B, Adol or Pedi Dosage 2002 00:00:00 Completed [facility] [place] Polio (IPV/OPV) 2002 00:00:00 Completed [facility] [place] DTAP 2002 00:00:00 Completed [facility] [place] HIB 4 Dose Schedule 2002 00:00:00 Completed [facility] [place] Hep B, Adol or Pedi Dosage 2002 00:00:00 Completed [facility] [place] Polio (IPV/OPV) 2002 00:00:00 Completed [facility] [place] DTAP 2002 00:00:00 Completed [facility] [place] HIB 4 Dose Schedule 2002 00:00:00 Completed [facility] [place] Hep B, Adol or Pedi Dosage 2002 00:00:00 Completed [facility] [place] Polio (IPV/OPV) 2002 00:00:00 Completed [facility] [place] DTAP 2002 00:00:00 Completed [facility] [place] DTAP 2002 00:00:00 Completed [facility] [place] HIB 4 Dose Schedule 2002 00:00:00 Completed [facility] [place] Hep B, Adol or Pedi Dosage 2002 00:00:00 Completed [facility] [place] Polio (IPV/OPV) 2002 00:00:00 Completed [facility] [place] HIB 4 Dose Schedule 2002 00:00:00 Completed [facility] [place] DTAP 2002 00:00:00 Completed [facility] [place] HIB 4 Dose Schedule 2002 00:00:00 Completed [facility] [place] Hep B, Adol or Pedi Dosage 2002 00:00:00 Completed [facility] [place] Polio (IPV/OPV) 2002 00:00:00 Completed [facility] [place] DTAP 2002 00:00:00 Completed [facility] [place] Hep B, Adol or Pedi Dosage 2002 00:00:00 Completed [facility] [place] HIB 4 Dose Schedule 2002 00:00:00 Completed [facility] [place] Hep B, Adol or Pedi Dosage 2002 00:00:00 Completed [facility] [place] Polio (IPV/OPV) 2002 00:00:00 Completed [facility] [place] Polio (IPV/OPV) 2002 00:00:00 Completed [facility] [place] DTAP 2002 00:00:00 Completed [facility] [place] HIB 4 Dose Schedule 2002 00:00:00 Completed [facility] [place] Hep B, Adol or Pedi Dosage 2002 00:00:00 Completed [facility] [place] Polio (IPV/OPV) 2002 00:00:00 Completed [facility] [place] DTAP 2002 00:00:00 Completed [facility] [place] HIB 4 Dose Schedule 2002 00:00:00 Completed [facility] [place] Hep B, Adol or Pedi Dosage 2002 00:00:00 Completed [facility] [place] Polio (IPV/OPV) 2002 00:00:00 Completed [facility] [place] DTAP 2002 00:00:00 Completed [facility] [place] HIB 4 Dose Schedule 2002 00:00:00 Completed [facility] [place] Hep B, Adol or Pedi Dosage 2002 00:00:00 Completed [facility] [place] Polio (IPV/OPV) 2002 00:00:00 Completed [facility] [place] DTAP 2002 00:00:00 Completed [facility] [place] HIB 4 Dose Schedule 2002 00:00:00 Completed [facility] [place] Hep B, Adol or Pedi Dosage 2002 00:00:00 Completed [facility] [place] Polio (IPV/OPV) 2002 00:00:00 Completed [facility] [place] DTAP 2002 00:00:00 Completed [facility] [place] DTAP 2002 00:00:00 Completed [facility] [place] HIB 4 Dose Schedule 2002 00:00:00 Completed [facility] [place] Hep B, Adol or Pedi Dosage 2002 00:00:00 Completed [facility] [place] Polio (IPV/OPV) 2002 00:00:00 Completed [facility] [place] HIB 4 Dose Schedule 2002 00:00:00 Completed [facility] [place] DTAP 2002 00:00:00 Completed [facility] [place] HIB 4 Dose Schedule 2002 00:00:00 Completed [facility] [place] Hep B, Adol or Pedi Dosage 2002 00:00:00 Completed [facility] [place] Hep B, Adol or Pedi Dosage 2002 00:00:00 Completed [facility] [place] Polio (IPV/OPV) 2002 00:00:00 Completed [facility] [place] DTAP 2002 00:00:00 Completed [facility] [place] Polio (IPV/OPV) 2002 00:00:00 Completed [facility] [place] HIB 4 Dose Schedule 2002 00:00:00 Completed [facility] [place] Hep B, Adol or Pedi Dosage 2002 00:00:00 Completed [facility] [place] Polio (IPV/OPV) 2002 00:00:00 Completed [facility] [place] DTAP 2002 00:00:00 Completed [facility] [place] HIB 4 Dose Schedule 2002 00:00:00 Completed [facility] [place] Hep B, Adol or Pedi Dosage 2002 00:00:00 Completed [facility] [place] Polio (IPV/OPV) 2002 00:00:00 Completed [facility] [place] DTAP 2002 00:00:00 Completed [facility] [place] HIB 4 Dose Schedule 2002 00:00:00 Completed [facility] [place] Hep B, Adol or Pedi Dosage 2002 00:00:00 Completed [facility] [place] Polio (IPV/OPV) 2002 00:00:00 Completed [facility] [place] DTAP 2002 00:00:00 Completed [facility] [place] HIB 4 Dose Schedule 2002 00:00:00 Completed [facility] [place] Hep B, Adol or Pedi Dosage 2002 00:00:00 Completed [facility] [place] Polio (IPV/OPV) 2002 00:00:00 Completed [facility] [place] DTAP 2002 00:00:00 Completed [facility] [place] DTAP 2002 00:00:00 Completed [facility] [place] HIB 4 Dose Schedule 2002 00:00:00 Completed [facility] [place] HIB 4 Dose Schedule 2002 00:00:00 Completed [facility] [place] Hep B, Adol or Pedi Dosage 2002 00:00:00 Completed [facility] [place] Polio (IPV/OPV) 2002 00:00:00 Completed [facility] [place] DTAP 2002 00:00:00 Completed [facility] [place] DTAP 2002 00:00:00 Completed [facility] [place] HIB 4 Dose Schedule 2002 00:00:00 Completed [facility] [place] Hep B, Adol or Pedi Dosage 2002 00:00:00 Completed [facility] [place] Polio (IPV/OPV) 2002 00:00:00 Completed [facility] [place] Hep B, Adol or Pedi Dosage 2002 00:00:00 Completed [facility] [place] DTAP 2002 00:00:00 Completed [facility] [place] HIB 4 Dose Schedule 2002 00:00:00 Completed [facility] [place] Hep B, Adol or Pedi Dosage 2002 00:00:00 Completed [facility] [place] Polio (IPV/OPV) 2002 00:00:00 Completed [facility] [place] Polio (IPV/OPV) 2002 00:00:00 Completed [facility] [place] HIB 4 Dose Schedule 2002 00:00:00 Completed [facility] [place] DTAP 2002 00:00:00 Completed [facility] [place] HIB 4 Dose Schedule 2002 00:00:00 Completed [facility] [place] Hep B, Adol or Pedi Dosage 2002 00:00:00 Completed [facility] [place] Polio (IPV/OPV) 2002 00:00:00 Completed [facility] [place] DTAP 2002 00:00:00 Completed [facility] [place] HIB 4 Dose Schedule 2002 00:00:00 Completed [facility] [place] Hep B, Adol or Pedi Dosage 2002 00:00:00 Completed [facility] [place] Polio (IPV/OPV) 2002 00:00:00 Completed [facility] [place] DTAP 2002 00:00:00 Completed [facility] [place] HIB 4 Dose Schedule 2002 00:00:00 Completed [facility] [place] Hep B, Adol or Pedi Dosage 2002 00:00:00 Completed [facility] [place] Polio (IPV/OPV) 2002 00:00:00 Completed [facility] [place] DTAP 2002 00:00:00 Completed [facility] [place] HIB 4 Dose Schedule 2002 00:00:00 Completed [facility] [place] Hep B, Adol or Pedi Dosage 2002 00:00:00 Completed [facility] [place] Polio (IPV/OPV) 2002 00:00:00 Completed [facility] [place] DTAP 2002 00:00:00 Completed [facility] [place] HIB 4 Dose Schedule 2002 00:00:00 Completed [facility] Hep B, Adol or Pedi Dosage 2002 00:00:00 Completed [facility] Polio (IPV/OPV) 2002 00:00:00 Completed [facility] Hep B, Adol or Pedi Dosage 2002 00:00:00 Completed [facility] DTAP 2002 00:00:00 Completed [facility] HIB 4 Dose Schedule 2002 00:00:00 Completed [facility] DTaP, Unspecified Formulation 2002 00:00:00 Completed IPV 2002 00:00:00 Completed Hep B, Adol or Pedi Dosage 2002 00:00:00 Completed [facility] Polio (IPV/OPV) 2002 00:00:00 Completed [facility] DTAP 2002 00:00:00 Completed [facility] HIB 4 Dose Schedule 2002 00:00:00 Completed [facility] Hep B, Adol or Pedi Dosage 2002 00:00:00 Completed [facility] Polio (IPV/OPV) 2002 00:00:00 Completed [facility] DTAP 2002 00:00:00 Completed [facility] HIB 4 Dose Schedule 2002 00:00:00 Completed [facility] Hep B, Adol or Pedi Dosage 2002 00:00:00 Completed [facility] Polio (IPV/OPV) 2002 00:00:00 Completed [facility] DTAP 2002 00:00:00 Completed [facility] HIB 4 Dose Schedule 2002 00:00:00 Completed [facility] Hep B, Adol or Pedi Dosage 2002 00:00:00 Completed [facility] Polio (IPV/OPV) 2002 00:00:00 Completed [facility] DTAP 2002 00:00:00 Completed [facility] HIB 4 Dose Schedule 2002 00:00:00 Completed [facility] Hep B, Adol or Pedi Dosage 2002 00:00:00 Completed [facility] Hep B, Adol or Pedi Dosage 2002 00:00:00 Completed [facility] Hep B, Adol or Pedi Dosage 2002 00:00:00 Completed [facility] Hep B, Adol or Pedi Dosage 2002 00:00:00 Completed [facility] Hep B, Adol or Pedi Dosage 2002 00:00:00 Completed [facility] Hep B, Adol or Pedi Dosage 2002 00:00:00 Completed [facility] Hep B, Adol or Pedi Dosage 2002 00:00:00 Completed [facility] Hep B, Adol or Pedi Dosage 2002 00:00:00 Completed [facility] Hep B, Adol or Pedi Dosage 2002 00:00:00 Completed [facility] Hep B, Adol or Pedi Dosage 2002 00:00:00 Completed [facility] Hep B, Adol or Pedi Dosage 2002 00:00:00 Completed [facility] Hep B, Adol or Pedi Dosage 2002 00:00:00 Completed [facility] Hep B, Adol or Pedi Dosage 2002 00:00:00 Completed [facility] Hep B, Adol or Pedi Dosage 2002 00:00:00 Completed [facility] Hep B, Adol or Pedi Dosage 2002 00:00:00 Completed [facility] Hep B, Adol or Pedi Dosage 2002 00:00:00 Completed [facility] Hep B, Adol or Pedi Dosage 2002 00:00:00 Completed [facility] Hep B, Adol or Pedi Dosage 2002 00:00:00 Completed [facility] Hep B, Adol or Pedi Dosage 2002 00:00:00 Completed [facility] Hep B, Adol or Pedi Dosage 2002 00:00:00 Completed [facility] Hep B, Adol or Pedi Dosage 2002 00:00:00 Completed [facility] Hep B, Adol or Pedi Dosage 2002 00:00:00 Completed [facility] Hep B, Adol or Pedi Dosage 2002 00:00:00 Completed [facility] Hep B, Adol or Pedi Dosage 2002 00:00:00 Completed [facility] Hep B, Adol or Pedi Dosage 2002 00:00:00 Completed [facility] Hep B, Adol or Pedi Dosage 2002 00:00:00 Completed [facility] Hep B, Adol or Pedi Dosage 2002 00:00:00 Completed [facility] Hep B, Adol or Pedi Dosage 2002 00:00:00 Completed [facility] Hep B, Adol or Pedi Dosage 2002 00:00:00 Completed [facility] Hep B, Adol or Pedi Dosage 2002 00:00:00 Completed [facility] Hep B, Adol or Pedi Dosage 2002 00:00:00 Completed [facility] Hep B, Adol or Pedi Dosage 2002 00:00:00 Completed [facility] Hep B, Adol or Pedi Dosage 2002 00:00:00 Completed [facility] Hep B, Adol or Pedi Dosage 2002 00:00:00 Completed [facility] Hep B, Adol or Pedi Dosage 2002 00:00:00 Completed [facility] Hep B, Adol or Pedi Dosage 2002 00:00:00 Completed [facility] Hep B, Adol or Pedi Dosage 2002 00:00:00 Completed [facility] Hep B, Adol or Pedi Dosage 2002 00:00:00 Completed [facility] Hep B, Adol or Pedi Dosage 2002 00:00:00 Completed [facility] Hep B, Adol or Pedi Dosage 2002 00:00:00 Completed [facility] Hep B, Adol or Pedi Dosage 2002 00:00:00 Completed [facility] Hep B, Adol or Pedi Dosage 2002 00:00:00 Completed [facility] Hep B, Adol or Pedi Dosage 2002 00:00:00 Completed [facility] Hep B, Adol or Pedi Dosage 2002 00:00:00 Completed [facility] Hep B, Adol or Pedi Dosage 2002 00:00:00 Completed [facility] Hep B, Adol or Pedi Dosage 2002 00:00:00 Completed [facility] Hep B, Adol or Pedi Dosage 2002 00:00:00 Completed [facility] Hep B, Adol or Pedi Dosage 2002 00:00:00 Completed [facility] Hep B, Adol or Pedi Dosage 2002 00:00:00 Completed [facility] Hep B, Adol or Pedi Dosage 2002 00:00:00 Completed [facility] Hep B, Adol or Pedi Dosage 2002 00:00:00 Completed [facility] Hep B, Adol or Pedi Dosage 2002 00:00:00 Completed [facility] Hep B, Adol or Pedi Dosage 2002 00:00:00 Completed [facility] Hep B, Adol or Pedi Dosage 2002 00:00:00 Completed [facility] Hep B, Adol or Pedi Dosage 2002 00:00:00 Completed [facility] Hep B, Adol or Pedi Dosage 2002 00:00:00 Completed [facility] Hep B, Adol or Pedi Dosage 2002 00:00:00 Completed [facility] Hep B, Adol or Pedi Dosage 2002 00:00:00 Completed [facility] Hep B, Adol or Pedi Dosage 2002 00:00:00 Completed [facility] Hep B, Adol or Pedi Dosage 2002 00:00:00 Completed [facility] Hep B, Adol or Pedi Dosage 2002 00:00:00 Completed [facility] Hep B, Adol or Pedi Dosage 2002 00:00:00 Completed [facility] Hep B, Adol or Pedi Dosage 2002 00:00:00 Completed [facility] Hep B, Adol or Pedi Dosage 2002 00:00:00 Completed [facility] Hep B, Adol or Pedi Dosage 2002 00:00:00 Completed [facility] Hep B, Adol or Pedi Dosage 2002 00:00:00 Completed [facility] Hep B, Adol or Pedi Dosage 2002 00:00:00 Completed [facility] Hep B, Adol or Pedi Dosage 2002 00:00:00 Completed [facility] Hep B, Adol or Pedi Dosage 2002 00:00:00 Completed [facility] Hep B, Adol or Pedi Dosage 2002 00:00:00 Completed [facility] Hep B, Adol or Pedi Dosage 2002 00:00:00 Completed [facility] Hep B, Adol or Pedi Dosage 2002 00:00:00 Completed [facility] Hep B, Adol or Pedi Dosage 2002 00:00:00 Completed [facility] Vital Signs Vital Name Observation Time Observation Value Comments S ource Systolic blood pressure 2024-08-04 15:46:00 106 mm[Hg] [place] [facility] Diastolic blood pressure 2024-08-04 15:46:00 70 mm[Hg] [place] [facility] Heart rate 2024-08-04 15:46:00 90 /[facility] 2024-08-04 15:46:00 36.83 Cara [facility] Respiratory rate 2024-08-04 15:46:00 14 /min [facility] Body height 2024-08-04 15:46:00 160 cm per pt [facility] Body weight 2024-08-04 15:46:00 83.944 kg [facility] BMI 2024-08-04 15:46:00 32.78 kg/m2 [facility] Oxygen saturation in Arterial blood by Pulse oximetry 2024-08-04 15:46:00 96 /min [facility] Systolic blood pressure 2024-07-13 14:46:00 125 mm[Hg] [facility] Diastolic blood pressure 2024-07-13 14:46:00 62 mm[Hg] [facility] Heart rate 2024-07-13 14:46:00 66 /min Unive [facility] Body temperature 2024-07-13 14:46:00 36.33 Cara [facility] Body height 2024-07-13 14:46:00 160 cm [facility] Body weight 2024-07-13 14:46:00 84.188 kg [facility] BMI 2024-07-13 14:46:00 32.88 kg/m2 [facility] Systolic blood pressure 2024-06-15 20:23:00 94 mm[Hg] [facility] Diastolic blood pressure 2024-06-15 20:23:00 64 mm[Hg] [facility] Heart rate 2024-06-15 20:23:00 78 /min Un[facility] Respiratory rate 2024-06-15 20:23:00 18 /min [facility] Body height 2024-06-15 20:23:00 157.5 cm [facility] 2024-06-15 20:23:00 85.73 kg [facility] BMI 2024-06-15 20:23:00 34.57 kg/m2 [facility] Systolic blood pressure 2024-05-05 19:15:00 109 mm[Hg] [facility] Diastolic blood pressure 2024-05-05 19:15:00 75 mm[Hg] [facility] Heart rate 2024-05-05 19:15:00 83 /min [facility] Body temperature 2024-05-05 19:15:00 36.72 Cara [facility] Respiratory rate 2024-05-05 19:15:00 18 /min [facility] Body height 2024-05-05 19:15:00 157.5 cm [facility] Body weight 2024-05-05 19:15:00 87.907 kg [facility] BMI 2024-05-05 19:15:00 35.45 kg/m2 [facility] Oxygen saturation in Arterial blood by Pulse oximetry 2024-05-05 19:15:00 96 /min [facility] Systolic blood pressure 2024-04-05 19:48:00 117 mm[Hg] [facility] Diastolic blood pressure 2024-04-05 19:48:00 67 mm[Hg] [facility] Heart rate 2024-04-05 19:48:00 73 /min [facility] Body temperature 2024-04-05 19:48:00 36.61 Cara [facility] Body height 2024-04-05 19:48:00 160 cm [facility] Body weight 2024-04-05 19:48:00 90.084 kg [facility] BMI 2024-04-05 19:48:00 35.18 kg/m2 [facility] Systolic blood pressure 2024-02-29 15:22:00 102 mm[Hg] [facility] Diastolic blood pressure 2024-02-29 15:22:00 69 mm[Hg] [facility] Heart rate 2024-02-29 15:22:00 76 /min [facility] Body temperature 2024-02-29 15:22:00 36.67 Cara [facility] Respiratory rate 2024-02-29 15:22:00 18 /min [facility] Body height 2024-02-29 15:22:00 160 cm [facility] Body weight 2024-02-29 15:22:00 86.637 kg [facility] BMI 2024-02-29 15:22:00 33.83 kg/m2 [facility] Oxygen saturation in Arterial blood by Pulse oximetry 2024-02-29 15:22:00 98 /min [facility] Systolic blood pressure 2024-01-04 16:17:00 125 mm[Hg] [facility] Diastolic blood pressure 2024-01-04 16:17:00 77 mm[Hg] [facility] Heart rate 2024-01-04 16:17:00 65 /min [facility] Body temperature 2024-01-04 16:17:00 36.83 Cara [facility] Body height 2024-01-04 16:17:00 160 cm [facility] Body weight 2024-01-04 16:17:00 83.734 kg [facility] BMI 2024-01-04 16:17:00 32.70 kg/m2 [facility] Systolic blood pressure 2023-12-21 21:02:00 114 mm[Hg] [facility] Diastolic blood pressure 2023-12-21 21:02:00 73 mm[Hg] [facility] Heart rate 2023-12-21 21:02:00 81 /min Un[facility] Body temperature 2023-12-21 21:02:00 36.72 Cara [facility] Body height 2023-12-21 21:02:00 160 cm [facility] Body weight 2023-12-21 21:02:00 84.641 kg [facility] BMI 2023-12-21 21:02:00 33.05 kg/m2 [facility] Systolic blood pressure 2023-12-09 18:36:00 114 mm[Hg] [facility] Diastolic blood pressure 2023-12-09 18:36:00 62 mm[Hg] [facility] Heart rate 2023-12-09 18:36:00 103 /min Un[facility] Body temperature 2023-12-09 18:36:00 36.67 Cara [facility] Body weight 2023-12-09 18:36:00 89.086 kg [facility] BMI 2023-12-09 18:36:00 34.79 kg/m2 [facility] Heart rate 2023-12-09 08:35:00 93 /min [facility] Body temperature 2023-12-09 08:35:00 37.17 Cara [facility] Respiratory rate 2023-12-09 08:35:00 16 /min [facility] Oxygen saturation in Arterial blood by Pulse oximetry 2023-12-09 08:35:00 99 /min [facility] Systolic blood pressure 2023-12-09 07:39:00 114 mm[Hg] [facility] Diastolic blood pressure 2023-12-09 07:39:00 61 mm[Hg] [facility] Body height 2023-12-09 02:55:00 160 cm [facility] Body weight 2023-12-09 02:55:00 90.719 kg [facility] BMI 2023-12-09 02:55:00 35.43 kg/m2 [facility] Systolic blood pressure 2023-12-04 12:30:00 107 mm[Hg] [facility] Diastolic blood pressure 2023-12-04 12:30:00 63 mm[Hg] [facility] Heart rate 2023-12-04 12:30:00 78 /min [facility] Body temperature 2023-12-04 12:30:00 36.44 Cara [facility] Respiratory rate 2023-12-04 12:30:00 18 /min [facility] Oxygen saturation in Arterial blood by Pulse oximetry 2023-12-04 12:30:00 100 /min [facility] Body height 2023-12-02 16:33:00 160 cm [facility] Body weight 2023-12-02 16:33:00 97.977 kg [facility] BMI 2023-12-02 16:33:00 38.27 kg/m2 [facility] Respiratory rate 2023-12-03 11:47:00 27 /min [facility] Systolic blood pressure 2023-12-04 04:31:00 109 mm[Hg] [facility] Diastolic blood pressure 2023-12-04 04:31:00 58 mm[Hg] [facility] Body temperature 2023-12-04 04:31:00 36.56 Cara [facility] Oxygen saturation in Arterial blood by Pulse oximetry 2023-12-04 04:31:00 99 /min [facility] Heart rate 2023-12-03 21:00:00 93 /min [facility] Respiratory rate 2023-12-03 21:00:00 18 /min [facility] Body height 2023-12-02 16:33:00 160 cm [facility] Body weight 2023-12-02 16:33:00 97.977 kg [facility] BMI 2023-12-02 16:33:00 38.27 kg/m2 [facility] Systolic blood pressure 2023-12-02 14:13:00 123 mm[Hg] [facility] Diastolic blood pressure 2023-12-02 14:13:00 74 mm[Hg] [facility] Heart rate 2023-12-02 14:13:00 93 /min [facility] Body temperature 2023-12-02 14:13:00 36.89 Cara [facility] Body height 2023-12-02 14:13:00 160 cm [facility] Body weight 2023-12-02 14:13:00 98.068 kg [facility] BMI 2023-12-02 14:13:00 38.30 kg/m2 [facility] Systolic blood pressure 2023-11-28 02:00:00 128 mm[Hg] [facility] Diastolic blood pressure 2023-11-28 02:00:00 71 mm[Hg] [facility] Heart rate 2023-11-28 02:00:00 96 /min [facility] Oxygen saturation in Arterial blood by Pulse oximetry 2023-11-28 02:00:00 99 /min [facility] Body temperature 2023-11-28 01:14:00 37.06 Cara [facility] Respiratory rate 2023-11-28 01:14:00 16 /min [facility] Body height 2023-11-28 01:14:00 160 cm [facility] Body weight 2023-11-28 01:14:00 98.113 kg [facility] BMI 2023-11-28 01:14:00 38.32 kg/m2 [facility] Systolic blood pressure 2023-11-25 20:56:00 112 mm[Hg] [facility] Diastolic blood pressure 2023-11-25 20:56:00 69 mm[Hg] [facility] Heart rate 2023-11-25 20:56:00 71 /min [facility] Body temperature 2023-11-25 20:56:00 36.61 Cara [facility] Respiratory rate 2023-11-25 20:56:00 18 /min [facility] Body height 2023-11-25 20:56:00 160 cm [facility] Body weight 2023-11-25 20:56:00 97.251 kg [facility] BMI 2023-11-25 20:56:00 37.98 kg/m2 [facility] Systolic blood pressure 2023-11-23 18:16:45 113 mm[Hg] [facility] Diastolic blood pressure 2023-11-23 18:16:45 72 mm[Hg] [facility] Heart rate 2023-11-23 18:16:45 84 /min [facility] Body temperature 2023-11-23 18:16:45 36.89 Cara [facility] Respiratory rate 2023-11-23 18:16:45 16 /min [facility] Oxygen saturation in Arterial blood by Pulse oximetry 2023-11-23 18:16:45 100 /min [facility] Body height 2023-11-23 15:38:00 160 cm [facility] Body weight 2023-11-23 15:38:00 95.709 kg [facility] BMI 2023-11-23 15:38:00 37.38 kg/m2 [facility] Systolic blood pressure 2023-11-17 02:21:00 121 mm[Hg] [facility] Diastolic blood pressure 2023-11-17 02:21:00 65 mm[Hg] [facility] Heart rate 2023-11-17 02:21:00 93 /min [facility] Body temperature 2023-11-17 02:21:00 36.89 Ca[place] [facility] Respiratory rate 2023-11-17 02:21:00 16 /min [facility] Body height 2023-11-17 02:21:00 160 cm [facility] Body weight 2023-11-17 02:21:00 96.117 kg [facility] BMI 2023-11-17 02:21:00 37.54 kg/m2 [facility] Oxygen saturation in Arterial blood by Pulse oximetry 2023-11-17 02:21:00 100 /min [facility] Systolic blood pressure 2023-11-11 15:27:00 128 mm[Hg] [facility] Diastolic blood pressure 2023-11-11 15:27:00 78 mm[Hg] [facility] Heart rate 2023-11-11 15:27:00 124 /min Un[facility] Respiratory rate 2023-11-11 15:27:00 18 /min [facility] Body height 2023-11-11 15:27:00 162.6 cm [facility] Body weight 2023-11-11 15:27:00 93.441 kg [facility] BMI 2023-11-11 15:27:00 35.36 kg/m2 [facility] Systolic blood pressure 2023-10-28 14:29:00 116 mm[Hg] [facility] Diastolic blood pressure 2023-10-28 14:29:00 70 mm[Hg] [facility] Heart rate 2023-10-28 14:29:00 90 /min [facility] Body temperature 2023-10-28 14:29:00 36.33 Cara [facility] Body weight 2023-10-28 14:29:00 93.622 kg [facility] BMI 2023-10-28 14:29:00 36.56 kg/m2 [facility] Systolic blood pressure 2023-10-14 16:09:00 131 mm[Hg] [facility] Diastolic blood pressure 2023-10-14 16:09:00 69 mm[Hg] [facility] Heart rate 2023-10-14 16:09:00 97 /min [facility] Body temperature 2023-10-14 16:09:00 36.5 Cara [facility] Body height 2023-10-14 16:09:00 160 cm [facility] Body weight 2023-10-14 16:09:00 93.985 kg [facility] BMI 2023-10-14 16:09:00 36.70 kg/m2 [facility] Heart rate 2023-10-09 22:15:00 87 /min [facility] Oxygen saturation in Arterial blood by Pulse oximetry 2023-10-09 22:15:00 100 /min [facility] Systolic blood pressure 2023-10-09 20:15:00 114 mm[Hg] [facility] Diastolic blood pressure 2023-10-09 20:15:00 63 mm[Hg] [facility] Body temperature 2023-10-09 18:05:00 36.83 Cara [facility] Respiratory rate 2023-10-09 17:51:00 18 /min [facility] Body height 2023-10-09 17:51:00 160 cm [facility] Body weight 2023-10-09 17:51:00 92.987 kg [facility] BMI 2023-10-09 17:51:00 36.31 kg/m2 [facility] Systolic blood pressure 2023-10-05 21:20:00 119 mm[Hg] [facility] Diastolic blood pressure 2023-10-05 21:20:00 70 mm[Hg] [facility] Heart rate 2023-10-05 21:20:00 102 /min [facility] Body weight 2023-10-05 21:20:00 94.983 kg [facility] BMI 2023-10-05 21:20:00 37.09 kg/m2 [facility] Heart rate 2023-09-11 22:00:00 89 /min [facility] Oxygen saturation in Arterial blood by Pulse oximetry 2023-09-11 22:00:00 100 /min [facility] Systolic blood pressure 2023-09-11 21:01:00 126 mm[Hg] [facility] Diastolic blood pressure 2023-09-11 21:01:00 70 mm[Hg] [facility] Body temperature 2023-09-11 16:00:00 37.28 Cara [facility] Respiratory rate 2023-09-11 16:00:00 17 /min [facility] Body height 2023-09-11 15:38:00 160 cm [facility] Body weight 2023-09-11 15:38:00 92.126 kg [facility] BMI 2023-09-11 15:38:00 35.98 kg/m2 [facility] Systolic blood pressure 2023-09-01 16:06:00 116 mm[Hg] [facility] Diastolic blood pressure 2023-09-01 16:06:00 68 mm[Hg] [facility] Heart rate 2023-09-01 16:06:00 83 /min [facility] 2023-09-01 16:06:00 36.28 Cara [facility] Body height 2023-09-01 16:06:00 160 cm [facility] Body weight 2023-09-01 16:06:00 91.808 kg [facility] BMI 2023-09-01 16:06:00 35.85 kg/m2 [facility] Systolic blood pressure 2023-08-04 13:32:00 115 mm[Hg] [facility] Diastolic blood pressure 2023-08-04 13:32:00 67 mm[Hg] [facility] Heart rate 2023-08-04 13:32:00 85 /min [facility] Body temperature 2023-08-04 13:32:00 36.78 Cara [facility] Respiratory rate 2023-08-04 13:32:00 18 /min [facility] Body height 2023-08-04 13:32:00 160 cm [facility] Body weight 2023-08-04 13:32:00 90.447 kg [facility] BMI 2023-08-04 13:32:00 35.32 kg/m2 [facility] Systolic blood pressure 2023-07-30 12:59:00 137 mm[Hg] [facility] Diastolic blood pressure 2023-07-30 12:59:00 72 mm[Hg] [facility] Heart rate 2023-07-30 12:59:00 87 /min [facility] Body temperature 2023-07-30 12:59:00 37 [facility] Respiratory rate 2023-07-30 12:59:00 16 /min [facility] Body height 2023-07-30 12:59:00 160 cm [facility] Body weight 2023-07-30 12:59:00 89.359 kg [facility] BMI 2023-07-30 12:59:00 34.90 kg/m2 [facility] Oxygen saturation in Arterial blood by Pulse oximetry 2023-07-30 12:59:00 100 /min [facility] Systolic blood pressure 2023-07-06 16:17:00 118 mm[Hg] [facility] Diastolic blood pressure 2023-07-06 16:17:00 69 mm[Hg] [facility] Heart rate 2023-07-06 16:17:00 83 /min [facility] Body temperature 2023-07-06 16:17:00 37 Cara [facility] Body height 2023-07-06 16:17:00 162.6 cm [facility] Body weight 2023-07-06 16:17:00 88.633 kg [facility] BMI 2023-07-06 16:17:00 33.54 kg/m2 [facility] Systolic blood pressure 2023-06-15 14:06:00 124 mm[Hg] [facility] Diastolic blood pressure 2023-06-15 14:06:00 72 mm[Hg] [facility] Heart rate 2023-06-15 14:06:00 68 /min [facility] Body temperature 2023-06-15 14:06:00 36.67 [facility] Body height 2023-06-15 14:06:00 162.6 cm [facility] Body weight 2023-06-15 14:06:00 88.451 kg [facility] BMI 2023-06-15 14:06:00 33.47 kg/m2 [facility] Oxygen saturation in Arterial blood by Pulse oximetry 2023-06-15 14:06:00 99 /min [facility] Systolic blood pressure 2023-06-04 19:00:00 117 mm[Hg] [facility] Diastolic blood pressure 2023-06-04 19:00:00 59 mm[Hg] [facility] Heart rate 2023-06-04 19:00:00 74 /min [facility] Respiratory rate 2023-06-04 19:00:00 20 /min [facility] Oxygen saturation in Arterial blood by Pulse oximetry 2023-06-04 19:00:00 100 /min [facility] Body temperature 2023-06-04 15:22:00 36.89 Car[facility] Body weight 2023-06-04 15:20:00 88.451 kg [facility] BMI 2023-06-04 15:20:00 34.54 kg/m2 [facility] Systolic blood pressure 2023-06-04 13:57:00 116 mm[Hg] [facility] Diastolic blood pressure 2023-06-04 13:57:00 74 mm[Hg] [facility] Heart rate 2023-06-04 13:57:00 75 /min [facility] Body temperature 2023-06-04 13:57:00 36.89 [facility] Respiratory rate 2023-06-04 13:57:00 18 /min [facility] Body height 2023-06-04 13:57:00 160 cm [facility] Body weight 2023-06-04 13:57:00 88.633 kg [facility] BMI 2023-06-04 13:57:00 34.61 kg/m2 [facility] Systolic blood pressure 2023-05-16 23:23:49 118 mm[Hg] [facility] Diastolic blood pressure 2023-05-16 23:23:49 60 mm[Hg] [facility] Heart rate 2023-05-16 23:23:49 80 /min [facility] Respiratory rate 2023-05-16 23:23:49 16 /min [facility] Oxygen saturation in Arterial blood by Pulse oximetry 2023-05-16 23:23:49 99 /min [facility] Body temperature 2023-05-16 21:54:00 37.39 [facility] Body height 2023-05-16 21:54:00 160 cm [facility] Body weight 2023-05-16 21:54:00 87.544 kg [facility] BMI 2023-05-16 21:54:00 34.19 kg/m2 [facility] Systolic blood pressure 2023-05-07 16:02:00 131 mm[Hg] [facility] Diastolic blood pressure 2023-05-07 16:02:00 72 mm[Hg] [facility] Heart rate 2023-05-07 16:02:00 79 /min [facility] Body temperature 2023-05-07 16:02:00 36.89 [facility] Body height 2023-05-07 16:02:00 160 cm [facility] Body weight 2023-05-07 16:02:00 88.089 kg [facility] BMI 2023-05-07 16:02:00 34.40 kg/m2 [facility] Systolic blood pressure 2023-04-23 20:49:00 128 mm[Hg] [facility] Diastolic blood pressure 2023-04-23 20:49:00 88 mm[Hg] [facility] Heart rate 2023-04-23 20:49:00 105 /min [facility] Body temperature 2023-04-23 20:49:00 37.33 [facility] Body height 2023-04-23 20:49:00 160 [facility] 2023-04-23 20:49:00 87.635 kg [facility] BMI 2023-04-23 20:49:00 34.22 kg/m2 [facility] Systolic blood pressure 2022-11-13 14:04:00 134 mm[Hg] [facility] Diastolic blood pressure 2022-11-13 14:04:00 76 mm[Hg] [facility] Heart rate 2022-11-13 14:04:00 76 /min [facility] Body temperature 2022-11-13 14:04:00 37.22 [facility] Body height 2022-11-13 14:04:00 160 cm [facility] Body weight 2022-11-13 14:04:00 82.283 kg [facility] BMI 2022-11-13 14:04:00 32.13 kg/m2 [facility] Systolic blood pressure 2022-10-28 14:04:00 123 mm[Hg] [facility] Diastolic blood pressure 2022-10-28 14:04:00 83 mm[Hg] [facility] Heart rate 2022-10-28 14:04:00 68 /min [facility] Body temperature 2022-10-28 14:04:00 36.94 [facility] Respiratory rate 2022-10-28 14:04:00 18 /min [facility] Body height 2022-10-28 14:04:00 160 cm [facility] Body weight 2022-10-28 14:04:00 82.101 kg [facility] BMI 2022-10-28 14:04:00 32.06 kg/m2 [facility] Systolic blood pressure 2022-08-11 16:19:00 110 mm[Hg] [facility] Diastolic blood pressure 2022-08-11 16:19:00 77 mm[Hg] [facility] Heart rate 2022-08-11 16:19:00 89 /min [facility] Body temperature 2022-08-11 16:19:00 37.33 Cara [facility] Respiratory rate 2022-08-11 16:19:00 20 /min [facility] Body height 2022-08-11 16:19:00 160 cm [facility] Body weight 2022-08-11 16:19:00 78.075 kg [facility] BMI 2022-08-11 16:19:00 30.49 kg/m2 [facility] Oxygen saturation in Arterial blood by Pulse oximetry 2022-08-11 16:19:00 98 /min [facility] Systolic blood pressure 2022-05-27 20:21:00 121 mm[Hg] [facility] Diastolic blood pressure 2022-05-27 20:21:00 69 mm[Hg] [facility] Heart rate 2022-05-27 20:21:00 72 /min [facility] Body temperature 2022-05-27 20:21:00 37.11 Car[facility] Respiratory rate 2022-05-27 20:21:00 17 /min [facility] Body height 2022-05-27 20:21:00 157.5 cm [facility] Body weight 2022-05-27 20:21:00 84.55 kg [facility] BMI 2022-05-27 20:21:00 34.09 kg/m2 [facility] Systolic blood pressure 2022-02-05 19:09:00 137 mm[Hg] [facility] Diastolic blood pressure 2022-02-05 19:09:00 79 mm[Hg] [facility] Heart rate 2022-02-05 19:09:00 94 /min [facility] Body temperature 2022-02-05 19:09:00 37.06 Car[facility] Respiratory rate 2022-02-05 19:09:00 18 /min [facility] Body height 2022-02-05 19:09:00 [facility].5 [facility] 2022-02-05 19:09:00 84.732 kg [facility] BMI 2022-02-05 19:09:00 34.17 kg/m2 [facility] Systolic blood pressure 2022-01-31 15:02:00 122 mm[Hg] [facility] Diastolic blood pressure 2022-01-31 15:02:00 77 mm[Hg] [facility] Heart rate 2022-01-31 15:02:00 67 /min [facility] Body temperature 2022-01-31 15:02:00 37.11 Car[facility] Body height 2022-01-31 15:02:00 157.5 cm [facility] Body weight 2022-01-31 15:02:00 82.555 kg [facility] BMI 2022-01-31 15:02:00 33.29 kg/m2 [facility] Systolic blood pressure 2022-01-02 14:12:00 109 mm[Hg] [facility] Diastolic blood pressure 2022-01-02 14:12:00 67 mm[Hg] [facility] Heart rate 2022-01-02 14:12:00 58 /min [facility] Body temperature 2022-01-02 14:12:00 37.06 Car[facility] Respiratory rate 2022-01-02 14:12:00 18 /min [facility] Body height 2022-01-02 14:12:00 [facility].5 [facility] 2022-01-02 14:12:00 80.74 kg [facility] BMI 2022-01-02 14:12:00 32.56 kg/m2 [facility] Systolic blood pressure 2021-01-06 02:00:00 149 mm[Hg] [facility] Diastolic blood pressure 2021-01-06 02:00:00 97 mm[Hg] [facility] Heart rate 2021-01-06 02:00:00 101 /min [facility] Respiratory rate 2021-01-06 02:00:00 17 /min [facility] Oxygen saturation in Arterial blood by Pulse oximetry 2021-01-06 02:00:00 100 /min [facility] Body temperature 2021-01-06 01:46:00 36.06 Car[facility] Body height 2021-01-06 01:46:00 157.5 cm [facility] Body weight 2021-01-06 01:46:00 81.647 kg [facility] BMI 2021-01-06 01:46:00 32.92 kg/m2 [facility] Body mass index (BMI) [Percentile] Per age and sex 2021-01-06 01:46:00 96.57 % [facility] Systolic blood pressure 2020-04-02 17:35:00 116 mm[Hg] [facility] Diastolic blood pressure 2020-04-02 17:35:00 72 mm[Hg] [facility] Heart rate 2020-04-02 16:53:00 73 /min [facility] Body temperature 2020-04-02 16:53:00 36.44 Car[facility] Respiratory rate 2020-04-02 16:53:00 18 /min [facility] Body height 2020-04-02 16:53:00 159 cm [facility] Body weight 2020-04-02 16:53:00 82.101 kg [facility] BMI 2020-04-02 16:53:00 32.48 kg/m2 [facility] Oxygen saturation in Arterial blood by Pulse oximetry 2020-04-02 16:53:00 98 /min [facility] Systolic blood pressure 2020-04-02 17:35:00 116 mm[Hg] [facility] Diastolic blood pressure 2020-04-02 17:35:00 72 mm[Hg] [facility] Heart rate 2020-04-02 16:53:00 73 /min [facility] Body temperature 2020-04-02 16:53:00 36.44 [facility] Respiratory rate 2020-04-02 16:53:00 18 /min [facility] Body height 2020-04-02 16:53:00 159 cm [facility] Body weight 2020-04-02 16:53:00 82.101 kg [facility] BMI 2020-04-02 16:53:00 32.48 kg/m2 [facility] Oxygen saturation in Arterial blood by Pulse oximetry 2020-04-02 16:53:00 98 /min [facility] Systolic blood pressure 2020-02-24 19:17:00 121 mm[Hg] [facility] Diastolic blood pressure 2020-02-24 19:17:00 77 mm[Hg] [facility] Heart rate 2020-02-24 19:16:00 84 /min [facility] Body temperature 2020-02-24 19:16:00 36.56 Car[facility] Respiratory rate 2020-02-24 19:16:00 18 /min [facility] Body weight 2020-02-24 19:16:00 83.598 kg [facility] Oxygen saturation in Arterial blood by Pulse oximetry 2020-02-24 19:16:00 100 /min [facility] Systolic blood pressure 2020-01-30 21:13:00 123 mm[Hg] [facility] Diastolic blood pressure 2020-01-30 21:13:00 70 mm[Hg] [facility] Heart rate 2020-01-30 21:13:00 83 /min [facility] Body temperature 2020-01-30 21:13:00 37.11 Car[facility] Respiratory rate 2020-01-30 21:13:00 18 /min [facility] Body height 2020-01-30 21:13:00 157.5 cm [facility] Body weight 2020-01-30 21:13:00 85.276 kg [facility] BMI 2020-01-30 21:13:00 34.39 kg/m2 [facility] Systolic blood pressure 2020-01-10 20:41:00 129 mm[Hg] [facility] Diastolic blood pressure 2020-01-10 20:41:00 72 mm[Hg] [facility] Heart rate 2020-01-10 20:41:00 98 /min [facility] 2020-01-10 20:41:00 36.72 Car[facility] Respiratory rate 2020-01-10 20:41:00 18 /min [facility] Body height 2020-01-10 20:41:00 157.5 cm [facility] Body weight 2020-01-10 20:41:00 85.276 kg [facility] BMI 2020-01-10 20:41:00 34.39 kg/m2 [facility] Body temperature 2019-10-12 19:39:00 35.72 Car[facility] Body height 2019-10-12 19:39:00 159 cm [facility] Body weight 2019-10-12 19:39:00 82.6 kg [facility] BMI 2019-10-12 19:39:00 32.67 kg/m2 [facility] Systolic blood pressure 2019-10-07 18:10:00 121 mm[Hg] [facility] Diastolic blood pressure 2019-10-07 18:10:00 79 mm[Hg] [facility] Heart rate 2019-10-07 18:10:00 77 /min [facility] 2019-10-07 18:10:00 36.89 Car[facility] Respiratory rate 2019-10-07 18:10:00 18 /min [facility] Body height 2019-10-07 18:10:00 157.5 cm [facility] Body weight 2019-10-07 18:10:00 81.647 kg [facility] BMI 2019-10-07 18:10:00 32.92 kg/m2 [facility] Systolic blood pressure 2019-10-06 20:18:00 123 mm[Hg] [facility] Diastolic blood pressure 2019-10-06 20:18:00 86 mm[Hg] [facility] Heart rate 2019-10-06 20:18:00 96 /min [facility] Body temperature 2019-10-06 20:18:00 36.78 Car[facility] Respiratory rate 2019-10-06 20:18:00 16 /min [facility] Body height 2019-10-06 20:18:00 157.5 cm [facility] Body weight 2019-10-06 20:18:00 80.786 kg [facility] BMI 2019-10-06 20:18:00 32.57 kg/m2 [facility] Oxygen saturation in Arterial blood by Pulse oximetry 2019-10-06 20:18:00 98 /min [facility] Systolic blood pressure 2019-08-04 18:52:00 129 mm[Hg] [facility] Diastolic blood pressure 2019-08-04 18:52:00 78 mm[Hg] [facility] Heart rate 2019-08-04 18:52:00 86 /min [facility] Body temperature 2019-08-04 18:52:00 37.22 Car[facility] Respiratory rate 2019-08-04 18:52:00 18 /min [facility] Body height 2019-08-04 18:52:00 157.5 cm [facility] Body weight 2019-08-04 18:52:00 84.369 kg [facility] BMI 2019-08-04 18:52:00 34.02 kg/m2 [facility] Systolic blood pressure 2019-05-23 21:28:00 121 mm[Hg] [facility] Diastolic blood pressure 2019-05-23 21:28:00 77 mm[Hg] [facility] Heart rate 2019-05-23 21:28:00 80 /min [facility] Body temperature 2019-05-23 21:28:00 37.39 Car[facility] Respiratory rate 2019-05-23 21:28:00 18 /min [facility] Body height 2019-05-23 21:28:00 158.5 cm [facility] Body weight 2019-05-23 21:28:00 85.095 kg [facility] BMI 2019-05-23 21:28:00 33.87 kg/m2 [facility] Oxygen saturation in Arterial blood by Pulse oximetry 2019-05-23 21:28:00 100 /min [facility] Systolic blood pressure 2019-05-16 21:51:00 123 mm[Hg] [facility] Diastolic blood pressure 2019-05-16 21:51:00 73 mm[Hg] [facility] Heart rate 2019-05-16 21:51:00 72 /min [facility] Body temperature 2019-05-16 21:51:00 36.78 [facility] Respiratory rate 2019-05-16 21:51:00 18 /min [facility] Body height 2019-05-16 21:51:00 157.5 cm [facility] Body weight 2019-05-16 21:51:00 85.276 kg [facility] BMI 2019-05-16 21:51:00 34.39 kg/m2 [facility] Body temperature 2019-05-03 20:09:00 36.83 [facility] Body height 2019-05-03 20:09:00 157.5 cm [facility] Body weight 2019-05-03 20:09:00 82.2 kg [facility] BMI 2019-05-03 20:09:00 33.14 kg/m2 [facility] Body temperature 2019-03-22 21:03:00 37 [facility] Body weight 2019-03-22 21:03:00 83.4 kg [facility] Systolic blood pressure 2018-11-12 13:21:00 120 mm[Hg] [facility] Diastolic blood pressure 2018-11-12 13:21:00 78 mm[Hg] [facility] Heart rate 2018-11-12 13:21:00 72 /min [facility] Body temperature 2018-11-12 13:21:00 37.83 Car[facility] Respiratory rate 2018-11-12 13:21:00 18 /min [facility] Body weight 2018-11-12 13:21:00 76.023 kg [facility] BMI 2018-11-12 13:21:00 29.69 kg/m2 [facility] Systolic blood pressure 2018-11-11 13:42:00 123 mm[Hg] [facility] Diastolic blood pressure 2018-11-11 13:42:00 81 mm[Hg] [facility] Heart rate 2018-11-11 13:42:00 64 /min [facility] Body temperature 2018-11-11 13:42:00 36.94 Car[facility] Respiratory rate 2018-11-11 13:42:00 18 /min [facility] Body height 2018-11-11 13:42:00 160 cm [facility] Body weight 2018-11-11 13:42:00 75.297 kg [facility] BMI 2018-11-11 13:42:00 29.41 kg/m2 [facility] Systolic blood pressure 2018-10-07 20:01:00 123 mm[Hg] [facility] Diastolic blood pressure 2018-10-07 20:01:00 80 mm[Hg] [facility] Heart rate 2018-10-07 20:01:00 97 /min [facility] Body temperature 2018-10-07 20:01:00 36.56 [facility] Respiratory rate 2018-10-07 20:01:00 16 /min [facility] Body height 2018-10-07 20:01:00 158.7 cm [facility] Body weight 2018-10-07 20:01:00 74.844 kg [facility] BMI 2018-10-07 20:01:00 29.72 kg/m2 [facility] Oxygen saturation in Arterial blood by Pulse oximetry 2018-10-07 20:01:00 99 /min [facility] Systolic blood pressure 2024-08-04 15:46:00 106 mm[Hg] [facility] Diastolic blood pressure 2024-08-04 15:46:00 70 mm[Hg] [facility] Heart rate 2024-08-04 15:46:00 90 /min [facility] Body temperature 2024-08-04 15:46:[address] [facility] Respiratory rate 2024-08-04 15:46:00 14 /min [facility] Body height 2024-08-04 15:46:00 160 cm per pt [facility] Body weight 2024-08-04 15:46:00 83.944 kg [facility] BMI 2024-08-04 15:46:00 32.78 kg/m2 [facility] Oxygen saturation in Arterial blood by Pulse oximetry 2024-08-04 15:46:00 96 /min [facility] Systolic blood pressure 2024-07-13 14:46:00 125 mm[Hg] [facility] Diastolic blood pressure 2024-07-13 14:46:00 62 mm[Hg] [facility] Heart rate 2024-07-13 14:46:00 66 /min [facility] Body temperature 2024-07-13 14:46:00 36.33 Car[facility] Body height 2024-07-13 14:46:00 160 cm [facility] Body weight 2024-07-13 14:46:00 84.188 kg [facility] BMI 2024-07-13 14:46:00 32.88 kg/m2 [facility] Respiratory rate 2024-06-15 20:23:00 18 /min [facility] Oxygen saturation in Arterial blood by Pulse oximetry 2024-05-05 19:15:00 96 /min [facility] Procedures Procedure Date / Time Performed Performing Clinician Source POCT TEST 2024-08-04 15:50:00 Tegan [facility] POCT TEST 2024-08-04 15:50:00 Tegan [facility] GC & CHLAMYDIA AMPLIFIED ASSAY 2024-07-13 15:01:00 Alexandria Whitmore [facility] TRICHOMONAS AMPLIFIED ASSAY 2024-07-13 15:01:00 Alexandria Whitmore [facility] GALV ONLY - VAGINAL PATHOGEN S BY NUCLEIC ACID TESTING 2024-07-13 15:01:00 Alexandria Whitmore [facility] US PELVIS LIMITED 2024-06-28 19:42:26 Alexandria Whitmore Sk[place] [facility] US PELVIS LIMITED 2024-06-28 19:42:26 WhitmoreAlexandria Skyler [facility] POCT TEST 2024-06-15 00:00:00 Alexandria Whitmore [facility] POCT TEST 2024-06-15 00:00:00 Alexandria Whitmore [facility] DME/SUPPLY JUSTIFICATION 2024-05-09 16:25:58 Doctor Unassigned, [place] [facility] DME/SUPPLY JUSTIFICATION 2024-05-09 16:25:58 Doctor Unassigned, [place] [facility] FREE T4 2024-05-05 19:41:00 [facility] THYROID STIMULATING HORMONE 2024-05-05 19:41:00 Obi[facility]Florencia [facility] COMP. METABOLIC PANEL ([id number]) 2024-05-05 19:41:00 [facility] CBC WITH DIFF 2024-05-05 19:41:00 Obi[facility]Fl[facility]ncia [facility] TSH RECEPTOR ANTIBODY (TRAB) 2024-05-05 19:41:00 [facility] FREE T3 2024-05-05 19:41:00 Obi[facility]Florencia [facility] THYROID STIMULATING HORMONE 2024-05-05 19:41:00 O[facility] FREE T4 2024-05-05 19:41:00 Obi[facility] FREE T3 2024-05-05 19:41:00 [facility] TSH RECEPTOR ANTIBODY (TRAB) 2024-05-05 19:41:00 [facility] THYROID PEROXIDASE (TPO) AB 2024-05-05 19:41:00 [facility] CBC WITH DIFF 2024-05-05 19:41:00 [facility]OLIC [facility] ([id number]) 2024-05-05 [facility] 2024-04-12 18:25:03 Doctor Unassigned, [place] [facility] HCV ANTIBODY 2024-04-05 20:12:00 HaimAlexandria [facility] HIV 1/2 AG-AB WITH REFLEX 2024-04-05 20:12:00 HaimAlexandria [facility] POCT TEST 2024-04-05 00:00:00 WhitmoreAlexandria [facility] DME/SUPPLY JUSTIFICATION 2024-03-29 19:57:03 Doctor Unassigned, [place] [facility] DME/SUPPLY JUSTIFICATION 2024-03-18 22:13:52 Doctor Unassigned, [place] [facility] DME/SUPPLY JUSTIFICATION 2024-02-25 21:03:16 Doctor Unassigned, [place] DME/SUPPLY JUSTIFICATION 2024-02-25 21:03:15 Doctor Unassigned, [facility] URINALYSIS 2023-12-09 05:32:00 Kayleigh Llanos [facility] CT ABDOMEN PELVIS W CONTRAST 2023-12-09 05:14:02 Kayleigh Llanos [facility] INFLUENZA A/B RSV COVID NAAT 2023-12-09 04:14:00 Kayleigh Llanos [facility] LIPASE 2023-12-09 04:12:00 Kayleigh Llanos [facility] COMP. METABOLIC PANEL (93627) 2023-12-09 04:12:00 Kayleigh Llanos [facility] CBC WITH DIFF 2023-12-09 04:12:00 Kayleigh Llanos [facility] LACTIC ACID WHOLE BLOOD 2023-12-09 04:12:00 Kayleigh Llanos [facility] DME/SUPPLY JUSTIFICATION 2023-12-04 18:57:15 Doctor Unassigned, [facility] CBC WITH DIFF 2023-12-04 08:50:00 Whitmore, [facility] CBC WITH DIFF 2023-12-04 08:50:00 Haim [facility] CENTRAL NEURAXIAL BLOCK 2023-12-03 10:50:00 Patito Smith [facility] CREATININE 2023-12-02 16:49:00 Haim [facility] CBC WITH DIFF 2023-12-02 16:49:00 [facility] HEPATITIS B SURFACE ANTIGEN 2023-12-02 16:49:00 [facility] HB ABO GROUPING 2023-12-02 16:49:00 [facility] RHO (D) IMMUNE GLOBULIN 2023-12-02 16:49:00 Haim [facility] ADC OR JORGE ONLY - RPR 2023-12-02 16:49:00 [facility] HIV 1/2 AG-AB WITH REFLEX 2023-12-02 16:49:00 [facility] CREATININE 2023-12-02 16:49:00 Haim [facility] CBC WITH DIFF 2023-12-02 16:49:00 [facility] HEPATITIS B SURFACE ANTIGEN 2023-12-02 16:49:00 [facility] HB ABO GROUPING 2023-12-02 16:49:00 [facility] RHO (D) IMMUNE GLOBULIN 2023-12-02 16:49:00 Haim [facility] ADC OR JORGE ONLY - RPR 2023-12-02 16:49:00 [facility] HIV 1/2 AG-AB WITH REFLEX 2023-12-02 16:49:00 [facility] POCT URINALYSIS W/O SPECIFIC GRAVITY 2023-12-02 00:00:00 Haim [facility] POCT URINALYSIS W/O SPECIFIC GRAVITY 2023-11-25 00:00:00 Dahlia Lewis [facility] RAPID STREP SCREEN FOR GROUP A 2023-11-23 16:17:00 Amari Montoya [facility] INFLUENZA A/B RSV COVID NAAT 2023-11-23 16:17:00 Amari Montoya [facility] ADC CLC OR LCC ONLY - WET PREP 2023-11-17 02:35:00 Nubia Riggs [facility] DSU PRE-OP 2023-11-11 18:20:46 Doctor Unassigned, [facility] >14 WEEKS US LIMITED 2023-11-11 17:30:25 Alexandria Whitmore [facility] POCT URINALYSIS W/O SPECIFIC GRAVITY 2023-11-11 00:00[facility]00 [facility] W/O SPECIFIC GRAVITY 2023-10-28 00:00:00 Dahlia Lewis [facility] POCT URINALYSIS W/O SPECIFIC GRAVITY 2023-10-14 00:00:00 Haim [facility] TDAP VACCINE, >11 YRS, IM 2023-10-05 21:56:15 Dahlia Lewis [facility] POCT URINALYSIS W/O SPECIFIC GRAVITY 2023-10-05 00:00:00 Dahlia Lewis [facility] SECOND AND THIRD TRIMESTER ULTRASOUND 2023-09-17 20:06:00 Alexandria Whitmore [facility] SECOND AND THIRD TRIMESTER ULTRASOUND 2023-09-17 20:03:00 Alexandria Whitmore [facility] POCT URINALYSIS W/O SPECIFIC GRAVITY 2023-09-01 00:00:00 Alexandria Whitmore [facility] SECOND AND THIRD TRIMESTER ULTRASOUND 2023-08-12 15:56:00 Alexandria Whitmore [facility] SECOND AND THIRD TRIMESTER ULTRASOUND 2023-08-12 15:46:00 Alexandria Whitmore [facility] POCT URINALYSIS W/O SPECIFIC GRAVITY 2023-08-04 00:00:00 Dahlia Lewis [facility] URINALYSIS 2023-07-30 13:45:00 Alexandria Whitmore [facility] ADC CLC OR LCC ONLY - WET PREP 2023-07-30 13:45:00 Whitmore, Alexandria Cam [facility] ALPHA FETOPROTEIN-MATERNAL SER 2023-07-29 17:59:00 Alexandria Whitmore [facility] KEPPRA (LEVETIRACETAM) 2023-07-29 17:59:00 Conchita Lopez [facility] ELECTROENCEPHALOGRAM 2023-07-16 00:00:00 Conchita Lopez [facility] POCT URINALYSIS W/O SPECIFIC GRAVITY 2023-07-06 00:00:00 Alexandria Whitmore [facility] SCANNED LAB RESULTS 2023-06-19 17:03:43 Doctor Unassigned, [facility] SCANNED LAB RESULTS 2023-06-19 17:02:44 Doctor Unassigned, [facility] URINALYSIS 2023-06-04 16:22:00 Jesse Lemos [facility] MAGNESIUM 2023-06-04 15:29:00 [facility] COMP. METABOLIC PANEL ([id number]) 2023-06-04 15:29:00 [facility] TOTAL BETA HCG ASSAY 2023-06-04 15:29:00 [facility] CBC WITH DIFF 2023-06-04 15:29:00 [facility] PAP SMEAR-LIQUID BASED-CP 2023-06-04 14:29:00 Alexandria Whitmore [facility] PAP SMEAR-LIQUID BASED-CP 2023-06-04 14:29:00 Alexandria Whitmore [facility] POCT URINALYSIS W/O SPECIFIC GRAVITY 2023-06-04 00:00:00 Alexandria Whitmore [facility] ASSIGNMENT OF BENEFITS 2023-05-16 23:10:54 Doctor Unassigned, [place] FIRST TRIMESTER LESS THAN 14 WEEKS 2023-05-16 22:58:46 Gui Aly [facility] CONSENT/REFUSAL FOR DIAGNOSI S AND TREATMENT 2023-05-16 21:38:19 Doctor Unassigned, [place] OB TRANSVAGINAL 2023-05-08 03:14:52 Alexandria Whitmore Cam [facility] FLU VACC ([id number]), 6 MO-6 4 YRS, .5ML, IM, QUAD (FLUCELVAX) 2023-05-07 16:43:17 Alexandria Whitmore [facility] RISK INVESTIGATOR CLINIC ULTRASOUND 2023-05-07 06:01:00 Doctor Unassigned, [place] POCT URINALYSIS W/O SPECIFIC GRAVITY 2023-05-07 00:00:00 Alexandria Whitmore [facility] US OB TRANSVAGINAL 2023-04-23 23:35:33 Alexandria Whitmore [facility] ASSIGNMENT OF BENEFITS 2023-04-23 20:27:38 Doctor Unassigned, [facility] POCT TEST 2023-04-23 00:00:00 Alexandria Whitmore [facility] POCT URINALYSIS W/O SPECIFIC GRAVITY 2023-04-23 00:00:00 Alexandria Whitmore [facility] BI ULTRASOUND BREAST COMPLET E RIGHT 2022-11-12 16:39:22 Rolan Casarez [facility] POCT MOLECULAR STREP 2022-08-11 16:25:00 Unknown, Attending [facility] POCT URINALYSIS W/O SPECIFIC GRAVITY 2022-05-27 20:36:[address] [facility] PATIENT FINANCIAL POLICY 2022-05-27 20:07:26 Doctor Unassigned, [facility] BI ULTRASOUND BREAST COMPLET E BILATERAL 2022-02-21 19:23:00 Rolan Casarez [facility] PELVIS COMPLETE WITH TRANSVAGINAL 2022-02-21 17:55:34 Rolan Casarez [facility] DISCLOSURE AND CONSENT, MEDICAL AND SURGICAL PROCEDURES 2022-01-31 06:01:00 Doctor Unassigned, [place] POCT TEST 2022-01-31 00:00:00 AdBrooklyn horn [facility] ASSIGNMENT OF BENEFITS 2022-01-02 14:07:23 Doctor Unassigned, [facility] POCT TEST 2021-01-06 02:44:00 Roma Adame [facility] URINALYSIS 2021-01-06 02:34:00 Roma Adame [facility] URINE DRUG (IMMUNOASSAY) - COMPREHENSIVE DRUG SCREEN W/O REFLEX 2021-01-06 02:34:00 Roma Adame [facility] LACTIC ACID WHOLE BLOOD 2021-01-06 02:23:00 Roma Adame [facility] COMP. METABOLIC PANEL ([id number]) 2021-01-06 02:03:00 Roma Adame [facility] ETHANOL 2021-01-06 02:03:00 Roma Adame [facility] CBC WITH DIFF 2021-01-06 02:03:00 Roma Adame [facility] MENINGOCOCCAL B VACCINE, OMV , 2 DOSE, IM 2020-04-16 16:43:42 Karen Siddiqui [facility] POCT RAPID STREP SCREEN FOR GROUP A 2020-02-24 19:24:00 Karen Siddiqui [facility] EXTERNAL PROVIDER RECORDS 2019-10-13 05:01:00 Doctor Unassigned, [place] PEDI ELECTROENCEPHALOGRAM 2019-10-12 00:00:00 Dalia Escalante [facility] DISCLOSURE AND CONSENT, MEDICAL AND SURGICAL PROCEDURES 2019-10-07 05:01:00 Doctor Unassigned, [place] AUTHORIZATION TO RE[facility] 2019-10-06 05:01:00 Doctor Unassigned, [place] BI ULTRASOUND BREAST LIMITED LEFT 2019-08-16 13:29:57 Alexandria Whitmore [facility] CONSENT FOR CONTRACEPTION 2019-08-04 05:01:00 Doctor Unassigned, [place] POCT TEST 2019-08-04 00:00:00 Alexandria Whitmore [facility] POCT URINALYSIS W/O SPECIFIC GRAVITY 2019-08-04 00:00:00 Alexandria Whitmore [facility] AGREEMENTS AUTHORIZATIONS AN D IRREVOCABLE ASSIGNMENTS (FORM 2001) 2019-06-16 05:01:00 Doctor Unassigned, [place] CONSENT/REFUSAL FOR DIAGNOSI S AND TREATMENT 2019-05-03 19:11:33 Doctor Unassigned, [facility] URINE CULTURE 2019-03-22 21:53:00 Demetrius Morgan [facility] CONSENT FOR DEPO-PROVERA 2018-11-11 05:01:00 Doctor Unassigned, [place] MENINGOCOCCAL B VACCINE(TRUMENBA) 2 OR 3 DOSE SERIES, IM 2018-10-07 20:59:48 Karen Siddiqui [facility] MENACTRA (MCV4-D) VACCINE 2018-10-07 20:59:21 Karen Siddiqui [facility] SECTION Alexandria Whitmore [facility] SECTION Alexandria Whitmore [facility] Encounters Start Date/Time End Date/Time Encounter Type Admission Type Attending [facility] Facility Care Department Encounter ID Source 2023-11-27 21:41:15 [facility] [id number] 2023-10-09 17:34:02 [facility] [id number] [facility] 2023-07-30 11:03:27 Outpatient X [facility] [id number] [facility] 2021-01-22 07:20:19 Emergency [facility] [id number] [facility] 2025-04-05 09:45:00 2025-04-05 09:45:00 Outpatient ALEXANDRIA LOYOLA VIEN [facility] [id number] [facility] 2024-08-17 09:15:00 2024-08-17 09:15:00 Outpatient ALEXANDRIA LOYOLA VIEN [facility] [id number] [facility] 2024-08-08 11:30:00 2024-08-08 12:30:00 Ancillary Visit Jil Kolb Brian A Georgiades, Haley M [facility] MEDICAL OFFICE BUILDING 1.2.840.114 350.1.13.10 4.2.7.2.686 [id number] [facility] 2024-08-04 10:40:00 2024-08-04 11:10:00 Urgent Care R Unknown, Attending TeganTereza frederick 1.2840.1 95402.1.1 3.104.2.7 .3.230540 .8 [id number] [facility] 2024-08-04 00:00:00 2024-08-04 00:00:00 Travel 1.2.840.1 81051.1.1 3.104.2.7 .3.502607 .8 1.2.840.114 350.1.13.10 4.2.7.3.698 084.8 [id number] [facility] 2024-08-01 10:30:00 2024-08-01 10:30:00 Outpatient ISSAC CARUSO [facility] [id number] [facility] 2024-08-01 10:30:00 2024-08-01 10:30:00 Ancillary Visit ISSAC CARUSO [facility] MEDICAL OFFICE BUILDING 1.840.114 350.1.13.10 4.2.7.2.686 [id number] [facility] 2024-06-29 00:00:00 2024-07-30 18:14:26 Patient Secure Msg Doctor Unassigned, [place] 1.840.1 96245.1.1 3.104.2.7 .3.738856 .8 [id number] [facility] 2024-07-25 15:00:00 2024-07-25 16:00:00 Ancillary Visit Jil Carmichael Brian A Georgiades, Haley M [facility] MEDICAL OFFICE BUILDING 1.840.114 350.1.13.10 4.2.7.2.686 [id number] [facility] 2024-07-18 11:30:00 2024-07-18 12:57:54 Ancillary Visit Issac Bernstein Haley M 1.2840.1 41446.1.1 3.104.2.7 .3.341000 .8 [id number] [facility] 2024-07-18 11:30:00 2024-07-18 11:30:00 Outpatient R ISSAC BERNSTEIN [facility] [id number] [facility] 2024-07-18 00:00:00 2024-07-18 00:00:00 Travel 1.2.840.1 87202.1.1 3.104.2.7 .3.664898 .8 1.2.840.114 350.1.13.10 4.2.7.3.698 084.8 [id number] [facility] 2024-07-15 00:00:00 2024-07-15 00:00:00 Patient Secure Msg Alexandria Whitmore 1.2.840.1 26316.1.1 3.104.2.7 .3.887213 .8 [id number] [facility] 2024-07-13 09:30:00 2024-07-13 10:12:46 Outpatient R ALEXANDRIA WHITMORE VIEN [facility] [id number] [facility] 2024-07-13 09:30:00 2024-07-13 10:12:46 Office Visit Alexandria Whitmore 1.2.840.1 84442.1.1 3.104.2.7 .3.005129 .8 [id number] [facility] 2024-07-13 00:00:00 2024-07-13 00:00:00 Travel 1.2.840.1 99524.1.1 3.104.2.7 .3.076667 .8 1.2.840.114 350.1.13.10 4.2.7.3.698 084.8 [id number] [facility] 2024-07-08 00:00:00 2024-07-12 09:47:37 Telephone Alexandria Whitmore 1.2.840.1 82293.1.1 3.104.2.7 .3.281782 .8 [id number] [facility] 2024-07-11 07:30:00 2024-07-11 08:30:00 Ancillary Visit Jil Carmichael Brian A Georgiades, Haley M [facility] MEDICAL OFFICE BUILDING 1.2.840.114 350.1.13.10 4.2.7.2.686 [id number] [facility] 2024-07-08 00:00:00 2024-07-08 00:00:00 Patient Secure Msg Doctor Unassigned, [facility] 1.840.1 84690.1.1 3.104.2.7 .3.503340 .8 [id number] [facility] 2024-07-05 00:00:00 2024-07-05 00:00:00 Scanned Documents Doctor Unassigned, [place] 1.2840.1 80127.1.1 3.104.2.7 .3.476751 .8 [id number] [facility] 2024-07-04 15:00:00 2024-07-04 15:57:00 Ancillary Visit Issac Bernstein Haley M 1.2840.1 55501.1.1 3.104.2.7 .3.740693 .8 [id number] [facility] 2024-07-04 09:30:00 2024-07-04 09:30:00 Outpatient ISSAC CARUSO [facility] [id number] [facility] 2024-07-04 00:00:00 2024-07-04 00:00:00 Travel 1.840.1 27276.1.1 3.104.2.7 .3.059192 .8 1.2840.114 350.1.13.10 4.2.7.3.698 084.8 [id number] [facility] 2024-06-29 00:00:00 2024-06-30 15:56:43 Patient Secure Msg Doctor Unassigned, [facility] 1.2.840.1 57088.1.1 3.104.2.7 .3.818246 .8 [id number] [facility] 2024-06-30 00:00:00 2024-06-30 15:54:29 Telephone Alexandria Whitmore 1.2.840.1 95404.1.1 3.104.2.7 .3.500405 .8 [id number] [facility] 2024-06-28 13:30:00 2024-06-28 23:59:00 Outpatient R ALEXANDRIA WHITMORE VIEN [facility] [id number] [facility] 2024-06-28 13:30:00 2024-06-28 23:59:00 Hospital Encounter Alexandria Whitmore 1.2.840.1 29359.1.1 3.104.2.7 .3.332064 .8 [id number] [facility] 2024-06-28 00:00:00 2024-06-28 00:00:00 Travel 1.2.840.1 54824.1.1 3.104.2.7 .3.527988 .8 1.2.840.114 350.1.13.10 4.2.7.3.698 084.8 [id number] [facility] 2024-06-23 14:00:00 2024-06-23 14:00:00 Outpatient R ALEXANDRIA WHITMORE VIEN [facility] [id number] [facility] 2024-06-15 15:00:00 2024-06-15 16:18:53 Outpatient R ALEXANDRIA WHITMORE VIEN [facility] [id number] [facility] 2024-06-15 15:00:00 2024-06-15 16:18:53 Office Visit Alexandria Whitmore 1.2.840.1 45882.1.1 3.104.2.7 .3.681032 .8 [id number] [facility] 2024-06-15 15:00:00 2024-06-15 15:00:00 Outpatient R ALEXANDRIA WHITMORE VIEN [facility] [id number] [facility] 2024-06-15 00:00:00 2024-06-15 00:00:00 Travel 1.2.840.1 24574.1.1 3.104.2.7 .3.956253 .8 1.2.840.114 350.1.13.10 4.2.7.3.698 084.8 [id number] [facility] 2024-06-03 00:00:00 2024-06-08 09:58:17 Alexandria Carrion 1.2.840.1 85480.1.1 3.104.2.7 .3.245800 .8 [id number] [facility] 2024-06-07 10:00:00 2024-06-07 10:00:00 Outpatient ALEXANDRIA LOYOLA VIEN [facility] [id number] [facility] 2024-05-09 00:00:00 2024-05-11 02:04:29 Orders Only Doctor Unassigned, [place] 1.2.840.1 15982.1.1 3.104.2.7 .3.301471 .8 [id number] [facility] 2023-11-11 00:00:00 2024-05-07 07:05:12 Orders Only Doctor Unassigned, [place] Doctor Unassigned, [place] [place] [facility] 1.2.840.114 350.1.13.10 4.2.7.2.686 [id number] [facility] 2023-12-04 00:00:00 2024-05-07 06:58:52 Orders Only Doctor Unassigned, [place] Doctor Unassigned, [place] [facility] 1.2.840.114 350.1.13.10 4.2.7.2.686 [id number] [facility] 2024-02-25 00:00:00 2024-05-07 06:31:43 Orders Only Doctor Unassigned, [place] Doctor Unassigned, [place] [facility] [place] ([place]) 1.2.840.114 350.1.13.10 4.2.7.2.686 [id number] [facility] 2024-02-25 00:00:00 2024-05-07 06:31:30 Orders Only Doctor Unassigned, [place] Doctor Unassigned, [place] [facility] [place] ([place]) 1.2.840.114 350.1.13.10 4.2.7.2.686 [id number] [facility] 2024-03-18 00:00:00 2024-05-07 06:25:10 Orders Only Doctor Unassigned, [place] Doctor Unassigned, [place] [facility] [place] ([place]) 1.2.840.114 350.1.13.10 4.2.7.2.686 [id number] [facility] 2024-03-29 00:00:00 2024-05-07 06:22:31 Orders Only Doctor Unassigned, [place] Doctor Unassigned, [place] [facility] [place] ([place]) 1.2.840.114 350.1.13.10 4.2.7.2.686 [id number] [id number] [facility] 2024-04-12 00:00:00 2024-05-07 06:16:38 Orders Only Doctor Unassigned, [place] Doctor Unassigned, [place] [facility] [place] ([place]) 1.2.840.114 350.1.13.10 4.2.7.2.686 [id number] [id number] [facility] 2023-06-19 00:00:00 2024-05-07 02:32:16 Orders Only Doctor Unassigned, [place] Doctor Unassigned, [place] [place] ([place]) 1.2.840.114 350.1.13.10 4.2.7.2.686 [id number] [facility] 2023-06-19 00:00:00 2024-05-07 02:31:49 Orders Only Doctor Unassigned, [place] Doctor Unassigned, [place] 1.2.840.114 350.1.13.10 4.2.7.2.686 [id number] [facility] 2024-05-05 13:45:00 2024-05-05 14:46:24 Outpatient R QUIN DOSHI UZOMA [facility] [id number] [facility] 2024-05-05 13:45:00 2024-05-05 14:46:24 Completion Supervisor Visit Quin Doshi 2, [facility] Lab 1.2.840.1 48444.1.1 3.104.2.7 .3.685485 .8 [id number] [facility] 2024-05-05 13:20:00 2024-05-05 13:36:20 Office Visit Quin Doshi 1.2.840.1 03975.1.1 3.104.2.7 .3.552231 .8 [id number] [facility] 2024-04-27 00:00:00 2024-04-27 16:34:42 Telephone Quin Doshi 1.2.840.1 74508.1.1 3.104.2.7 .3.773344 .8 [id number] [facility] 2024-04-19 00:00:00 2024-04-19 15:06:15 Telephone Quin Doshi 1.2.840.1 85052.1.1 3.104.2.7 .3.910862 .8 [id number] [facility] 2024-04-06 00:00:00 2024-04-07 11:04:02 Patient Secure Msmitzy Obi-Florencia , Quin [facility] BU[facility] 1.2.840.114 350.1.13.10 4.2.7.2.686 [id number] [facility] 2024-04-05 15:00:00 2024-04-05 15:00:00 Completion Supervisor Visit 2, Adc Lab Alexandria Whitmore 2, Adc Lab [facility] BU[facility] 1.2.840.114 350.1.13.10 4.2.7.2.686 [id number] [facility] 2024-04-05 00:00:00 2024-04-05 14:04:55 Letter (Out) HaimAlexandria Skyler [facility] 1.2.840.114 350.1.13.10 4.2.7.2.686 [id number] [facility] 2024-04-05 13:45:00 2024-04-05 14:02:57 Outpatient R HAIM ALEXANDRIA WEINER [facility] [id number] [facility] 2024-04-05 13:45:00 2024-04-05 14:02:57 Office Visit Haim Alexandriagill Holland [facility] BU[facility] 1.2.840.114 350.1.13.10 4.2.7.2.686 [id number] [facility] 2024-03-17 00:00:00 2024-03-17 14:38:54 Telephone WhitmoreAlexandria [facility] 1.2.840.114 350.1.13.10 4.2.7.2.686 [id number] [facility] 2024-01-28 00:00:00 2024-03-05 18:24:13 Patient Secure Msg [facility] 1.2.840.114 350.1.13.10 4.2.7.2.686 [id number] [facility] 2024-02-29 09:45:00 2024-02-29 10:11:02 Outpatient R OBI-FLORENCIA , QUIN OBI-FLORENCIA , QUIN [facility] [id number] [facility] 2024-02-29 09:45:00 2024-02-29 10:00:00 Completion Supervisor Visit 2, Adc Lab Obmarielena-Quin Valdovinos 2, Adc Lab [facility] 1.2.840.114 350.1.13.10 4.2.7.2.686 [id number] [facility] 2024-02-29 09:00:00 2024-02-29 09:41:26 Office Visit ToyinFlorencia Quin [facility] 1.2.840.114 350.1.13.10 4.2.7.2.686 [id number] [facility] 2024-02-19 00:00:00 2024-02-22 10:32:13 Telephone [place] Whitmore [facility] 1.2.840.114 350.1.13.10 4.2.7.2.686 [id number] [facility] 2024-02-22 08:00:00 2024-02-22 08:00:00 Outpatient R OBI-FLORENCIA , QUIN [id number] 2024-01-04 13:00:00 2024-01-04 13:18:22 Outpatient [facility] [id number] 2024-01-04 13:00:00 2024-01-04 13:15:00 Completion Supervisor Visit 2, Adc Lab [place] 2, Adc Lab [facility] 1.2.840.114 350.1.13.10 4.2.7.2.686 [id number] [facility] 2024-01-04 11:00:00 2024-01-04 11:32:35 Routine Visit [facility] 1.2.840.114 350.1.13.10 4.2.7.2.686 [id number] 134 [id number] [facility] 2023-12-31 11:00:00 2023-12-31 11:00:00 Outpatient R ALEXANDRIA WHITMORE [facility] [id number] [facility] 2023-12-21 15:45:00 2023-12-21 16:37:39 Outpatient R ALEXANDRIA WHITMORE VIEN [facility] [id number] [facility] 2023-12-21 15:45:00 2023-12-21 16:37:39 Routine Visit [facility] 1.2.840.114 350.1.13.10 4.2.7.2.686 [id number] 134 [id number] [facility] 2023-12-11 09:00:00 2023-12-11 09:00:00 Outpatient R ALEXANDRIA WHITMORE [facility] [id number] [facility] 2023-12-09 14:15:00 2023-12-09 14:15:00 Routine Visit Dahlia Lewis [facility] NAL BUILDING 1.2.840.114 350.1.13.10 4.2.7.2.686 [id number] 134 [id number] [facility] 2023-12-09 14:15:00 2023-12-09 13:54:39 Outpatient R DAHLIA LEWIS [facility] [id number] [facility] 2023-12-08 21:58:00 2023-12-09 03:40:00 Emergency X KAYLEIGH LLANOS WAKILI [facility] [id number] [facility] 2023-12-08 21:58:00 2023-12-09 03:40:00 Emergency Kayleigh Llanos [facility] 1.840.114 350.1.13.10 4.2.7.2.686 [id number] [id number] [facility] 2023-12-08 00:00:00 2023-12-08 17:06:10 Telephone Alexandria Whitmore [facility] 1..840.114 350.1.13.10 4.2.7.2.686 [id number] 134 [id number] [facility] 2023-12-02 11:19:00 2023-12-04 15:20:00 Inpatient P ALEXANDRIA WHITMORE [facility] [id number] [facility] 2023-12-02 11:19:00 2023-12-04 15:20:00 Hospital Encounter Alexandria Whitmore [facility] 1.840.114 350.1.13.10 4.2.7.2.686 [id number] 083 [id number] [facility] 2023-12-03 00:00:00 2023-12-03 10:35:40 Telephone Alexandria Whitmore [facility] BU[facility] 1..840.114 350.1.13.10 4.2.7.2.686 [id number] 134 [id number] [facility] 2023-12-03 05:48:00 2023-12-03 07:01:00 Anesthesia Event Patito Smith [facility] 1.2.840.114 350.1.13.10 4.2.7.2.686 [id number] [id number] [facility] 2023-12-03 00:00:00 2023-12-03 00:00:00 Surgery Alexandria Whitmore [facility] 1.2.840.114 350.1.13.10 4.2.7.2.686 [id number] [id number] [facility] 2023-12-02 09:15:00 2023-12-02 10:53:15 Outpatient R ELINA WHITMOREEN ALEXANDRIA WHITMORE [facility] [id number] [facility] 2023-12-02 09:15:00 2023-12-02 10:53:15 Routine Visit Alexandria Whitmore [facility] BU[facility]ING 1.2840.114 350.1.13.10 4.2.7.2.686 [id number] 134 [id number] [facility] 2023-11-27 20:04:00 2023-11-27 21:25:00 Outpatient P MITCHELL-ESSIE S, NUBIA MITCHELL-ESSIE S, NUBIA [facility] [id number] [facility] 2023-11-27 20:04:00 2023-11-27 21:25:00 Hospital Encounter Elbert Luevano-Essie s, Nubia [facility] 1.2.840.114 350.1.13.10 4.2.7.2.686 [id number] [id number] [facility] 2023-11-27 00:00:00 2023-11-27 16:30:58 Telephone Alexandria Whitmore [facility] NAL BUILDING 1.2.840.114 350.1.13.10 4.2.7.2.686 [id number] 134 [id number] [facility] 2023-11-26 00:00:00 2023-11-26 12:54:49 Telephone Alexandria Whitmore [facility]AL BUILD[facility] 1.2.840.114 350.1.13.10 4.2.7.2.686 [id number] 134 [id number] [facility] 2023-11-25 16:00:00 2023-11-25 16:22:04 Outpatient R PATELDAHLIA STALLWORTH [facility] [id number] [facility] 2023-11-25 16:00:00 2023-11-25 16:22:04 Routine Visit Dahlia Lewis [facility] 1..840.114 350.1.13.10 4.2.7.2.686 [id number] 134 [id number] [facility] 2023-11-23 10:40:00 2023-11-23 13:23:00 Emergency X Amari MONTOYA K [facility] [id number] [facility] 2023-11-23 10:40:00 2023-11-23 13:23:00 Emergency Amari Montoya [facility] 1.2.840.114 350.1.13.10 4.2.7.2.686 [id number] 084 [id number] [facility] 2023-11-16 21:10:00 2023-11-16 22:35:00 Outpatient X MITCHELL-ESSIE S, NUBIA MITCHELL-ESSIE S, NUBIA [facility] [id number] [facility] 2023-11-16 21:10:00 2023-11-16 22:35:00 Emergency Mitchell-Essie s, Nubia [facility] 1.2.840.114 350.1.13.10 4.2.7.2.686 [id number] [id number] [facility] 2023-11-11 11:15:00 2023-11-11 11:38:34 Outpatient R ALEXANDRIA WHITMORE VIEN [facility] [id number] [facility] 2023-11-11 11:15:00 2023-11-11 11:30:00 Completion Supervisor Visit 2, Adc Lab Alexandria Whitmore 2, Adc Lab [facility] BUILDING 1.2.840.114 350.1.13.10 4.2.7.2.686 [id number] 353 [id number] [facility] 2023-11-11 10:45:00 2023-11-11 11:06:19 Routine Visit Alexandria Whitmore [facility] BUILDING 1.2.840.114 350.1.13.10 4.2.7.2.686 [id number] 134 [id number] [facility] 2023-09-29 00:00:00 2023-10-31 18:21:24 Patient Secure Msg Doctor Unassigned, [place] Doctor Unassigned, [place] [facility] 1.2.840.114 350.1.13.10 4.2.7.2.686 [id number] 134 [id number] [facility] 2023-10-28 00:00:00 2023-10-28 10:06:46 Letter (Out) Alexandria Whitmore [facility] 1.2.840.114 350.1.13.10 4.2.7.2.686 [id number] 134 [id number] [facility] 2023-10-28 09:45:00 2023-10-28 10:05:47 Outpatient R DAHLIA LEWIS [facility] [id number] [facility] 2023-10-28 09:45:00 2023-10-28 10:05:47 Routine Visit Dahlia Lewis [facility] 1.2.840.114 350.1.13.10 4.2.7.2.686 [id number] 134 [id number] [facility] 2023-10-14 00:00:00 2023-10-21 09:03:19 Letter (Out) Alexandria Whitmore [facility] 1.2.840.114 350.1.13.10 4.2.7.2.686 [id number] 134 [id number] [facility] 2023-10-16 00:00:00 2023-10-16 16:25:46 Telephone Alexandria Whitmore [facility] 1.2.840.114 350.1.13.10 4.2.7.2.686 [id number] 134 [id number] [facility] 2023-10-14 11:15:00 2023-10-14 12:16:16 Outpatient R ALEXANDRIA WHITMORE VIEN [facility] [id number] [facility] 2023-10-14 11:15:00 2023-10-14 12:16:16 Routine Visit Alexandria Whitmore [facility] 1.2.840.114 350.1.13.10 4.2.7.2.686 [id number] 134 [id number] [facility] 2023-10-09 12:55:00 2023-10-09 17:30:00 Outpatient P CYNTHIAJUSTINA BROOKLYNBROOKLYN SOLORZANO [facility] [id number] [facility] 2023-10-09 12:55:00 2023-10-09 17:30:00 Hospital Encounter Brooklyn Garduno Wade [facility] 1.2.840.114 350.1.13.10 4.2.7.2.686 [id number] 083 [id number] [facility] 2023-10-09 00:00:00 2023-10-09 13:32:21 Telephone Alexandria Whitmore [facility] 1.2.840.114 350.1.13.10 4.2.7.2.686 [id number] 134 [id number] [facility] 2023-10-05 16:30:00 2023-10-05 16:51:39 Outpatient R DAHLIA LEWIS [facility] [id number] [facility] 2023-10-05 16:30:00 2023-10-05 16:51:39 Routine Visit Dahlia Lewis [facility] 1..840.114 350.1.13.10 4.2.7.2.686 [id number] 134 [id number] [facility] 2023-09-29 00:00:00 2023-10-05 10:16:14 Telephone Dahlia Lewis [facility] 1..840.114 350.1.13.10 4.2.7.2.686 [id number] 134 [id number] [facility] 2023-09-30 10:30:00 2023-09-30 10:30:00 Outpatient R PATELSUZANNEMERLINDAHLIA [facility] [id number] [facility] 2023-09-17 14:30:00 2023-09-17 15:34:28 Outpatient R ALEXANDRIA WHITMORE VIEN [facility] [id number] [facility] 2023-09-17 14:30:00 2023-09-17 15:34:28 Completion Supervisor Visit Ultrasound, Alexandria Leal [facility] RISK INVESTIGATOR [facility] 1..840.114 350.1.13.10 4.2.7.2.686 [id number] [facility] 2023-09-15 09:00:00 2023-09-15 09:00:00 Outpatient R CONCHITA LOPEZ DIOSELY [facility] [id number] [facility] 2023-09-14 00:00:00 2023-09-14 12:17:20 Telephone Alexandria Whitmore [facility] 1..840.114 350.1.13.10 4.2.7.2.686 [id number] 134 [id number] [facility] 2023-09-11 10:43:00 2023-09-11 17:33:00 Outpatient P [facility] [id number] [facility] 2023-09-11 10:43:00 2023-09-11 17:33:00 Emergency Mitchell-Essie s, Nubia Alexandria hWitmore [facility] 1.2.840.114 350.1.13.10 4.2.7.2.686 [id number] [id number] [facility] 2023-09-11 00:00:00 2023-09-11 09:57:[address] [facility] 1.2.840.114 350.1.13.10 4.2.7.2.686 [id number] 134 [id number] [facility] 2023-09-10 08:15:00 2023-09-10 10:44:27 Outpatient R ALEXANDRIA WHITMORE VIEN [facility] [id number] [facility] 2023-09-10 08:15:00 2023-09-10 08:30:00 Completion Supervisor Visit 2, Adc Lab Alexandria Whitmore [facility] BUILDING 1.2.840.114 350.1.13.10 4.2.7.2.686 [id number] [facility] 2023-09-01 11:00:00 2023-09-01 11:20:44 Outpatient R ALEXANDRIA WHITMORE [facility] [id number] [facility] 2023-09-01 11:00:00 2023-09-01 11:20:44 [facility]ine Visit [facility] 1.2.840.114 350.1.13.10 4.2.7.2.686 [id number] 134 [id number] [facility] 2023-08-12 09:00:00 2023-08-12 10:15:56 Outpatient P CADENCE PRITCHETT [facility] [id number] [facility] 2023-08-12 09:00:00 2023-08-12 10:15:56 Completion Supervisor Visit Ultrasound, Ang-Mfm Cadence Pritchett [facility] R[facility] INVESTIGATOR [facility] 1.0.114 350.1.13.10 4.2.7.2.686 [id number] [facility] 2023-08-10 00:00:00 2023-08-10 11:45:[address] [facility] MEDICAL OFFICE BUILDING 1..114 350.1.13.10 4.2.7.2.686 [id number] [id number] [facility] 2023-07-03 00:00:00 2023-08-08 18:10:33 Patient Secure Msg Doctor Unassigned, [place] PATITO SANTILLAN [facility] 1..114 350.1.13.10 4.2.7.2.686 [id number] [id number] [facility] 2023-08-04 10:15:00 2023-08-04 10:30:00 Completion Supervisor Visit 2, Adc Lab Lorena Dahlia [facility] BUILDING 1.84.114 350.1.13.10 4.2.7.2.686 [id number] 353 [id number] [facility] 2023-08-04 08:30:00 2023-08-04 08:47:36 Outpatient R DAHLIA LEWIS [facility] [id number] [facility] 2023-08-04 08:30:00 2023-08-04 08:47:36 Routine Visit Dahlia Lewis [facility] BUILDING 1.84.114 350.1.13.10 4.2.7.2.686 [id number] 134 [id number] [facility] 2023-07-30 07:41:00 2023-07-30 11:00:00 Outpatient X ALEXANDRIA WHITMORE [facility] [id number] [facility] 2023-07-30 07:41:00 2023-07-30 11:00:00 Emergency Mitchell-Essie s, Nubia Alexandria Whitmore [facility] 1.20.114 350.1.13.10 4.2.7.2.686 [id number] [id number] [facility] 2023-07-30 00:00:00 2023-07-30 07:34:23 Nurse Triage Lizzette Shoemaker [facility] 1..114 350.1.13.10 4.2.7.2.686 [id number] [id number] [facility] 2023-07-29 12:00:00 2023-07-29 12:15:00 Completion Supervisor Visit Pob, Adc Lab Main Alexandria Whitmore [facility] PROFESSIO NAL BUILDING 1.84.114 350.1.13.10 4.2.7.2.686 [id number] [facility] 2023-07-29 12:00:00 2023-07-29 12:00:00 Outpatient R ALEXANDRIA WHITMORE [facility] [id number] [facility] 2023-07-16 07:55:21 2023-07-16 23:59:00 Outpatient R CONCHITA LOPEZ DIOSELY [facility] [id number] [facility] 2023-07-16 07:55:21 2023-07-16 23:59:00 Hospital Encounter Conchita Lopez [facility] ANNEX 1.840.114 350.1.13.10 4.2.7.2.686 [id number] [facility] 2023-07-13 00:00:00 2023-07-13 00:00:[address] [facility] MEDICAL OFFICE BUILDING 1.2.840.114 350.1.13.10 4.2.7.2.686 [id number] [facility] 2023-07-09 00:00:00 2023-07-09 00:00:00 Telephone Alexandria Whitmore [facility] BUILDING 1.2.840.114 350.1.13.10 4.2.7.2.686 [id number] 134 [id number] [facility] 2023-07-06 11:00:00 2023-07-06 11:51:44 Outpatient R HAIM ALEXANDRIA [facility] [id number] [facility] 2023-07-06 11:00:00 2023-07-06 11:15:00 Routine Visit Alexandria Whitmore [facility] BUILDING 1.2.840.114 350.1.13.10 4.2.7.2.686 [id number] 134 [id number] [facility] 2023-06-24 00:00:00 2023-06-24 00:00:00 Telephone Alexandria Whitmore [facility] BUILDING 1.2.840.114 350.1.13.10 4.2.7.2.686 [id number] 134 [id number] [facility] 2023-06-17 00:00:00 2023-06-17 00:00:00 Telephone Alexandria Whitmore [facility] BUILDING 1.2.840.114 350.1.13.10 4.2.7.2.686 [id number] 134 [id number] [facility] 2023-06-17 00:00:00 2023-06-17 00:00:00 Patient Secure Msg Doctor Unassigned, [place] [facility] BUILDING 1.2840.114 350.1.13.10 4.2.7.2.686 [id number] 134 [id number] [facility] 2023-06-15 09:00:00 2023-06-15 10:00:00 Office Visit Conchita Lopez [facility] MEDICAL OFFICE BUILDING 1.2.840.114 350.1.13.10 4.2.7.2.686 [id number] [id number] [facility] 2023-06-15 09:00:00 2023-06-15 09:00:00 Outpatient R CONCHITA LOPEZ [facility] [id number] [facility] 2023-06-05 08:15:00 2023-06-05 09:00:01 Outpatient R HAIM [facility] [id number] [facility] 2023-06-05 08:15:00 2023-06-05 08:30:00 Completion Supervisor Visit 2, Adc Lab Haim [facility] BUILDING 1.840.114 350.1.13.10 4.2.7.2.686 [id number] [facility] 2023-06-04 10:23:00 2023-06-04 14:08:00 Emergency X CANELO JESSE [facility] [id number] [facility] 2023-06-04 10:23:00 2023-06-04 14:08:00 Emergency Canelo Jesse [facility] 1.2840.114 350.1.13.10 4.2.7.2.686 [id number] [facility] 2023-06-04 10:00:00 2023-06-04 10:15:00 Completion Supervisor Visit 2, [facility] 1.2840.114 350.1.13.10 4.2.7.2.686 [id number] [facility] 2023-06-04 09:00:00 2023-06-04 09:36:23 Outpatient R ALEXANDRIA WHITMORE [facility] [id number] [facility] 2023-06-04 09:00:00 2023-06-04 09:36:23 Routine Visit [facility] BU[facility] 1.2.840.114 350.1.13.10 4.2.7.2.686 [id number] 134 [id number] [facility] 2023-06-04 00:00:00 2023-06-04 00:00:00 Patient Secure Msg Doctor Unassigned, [place] [facility] 1.2.840.114 350.1.13.10 4.2.7.2.686 [id number] [facility] 2023-05-29 00:00:00 2023-05-29 00:00:00 Patient Secure Msg Alexandria Whitmore [facility] BUILDING 1.2.840.114 350.1.13.10 4.2.7.2.686 [id number] 134 [id number] [facility] 2023-05-16 15:57:00 2023-05-16 17:26:00 Emergency GUI ACOSTA [facility] [id number] [facility] 2023-05-16 15:57:00 2023-05-16 17:26:00 [facility] 1..840.114 350.1.13.10 4.2.7.2.686 [id number] [id number] [facility] 2023-05-07 10:00:00 2023-05-07 11:00:16 Outpatient R ALEXANDRIA WHITMORE [facility] [id number] [facility] 2023-05-07 10:00:00 2023-05-07 11:00:16 Office Visit Whitmore, Alexandria Cam [facility] BUILDING 1.2.840.114 350.1.13.10 4.2.7.2.686 [id number] 134 [id number] [facility] 2023-05-07 00:00:00 2023-05-07 00:00:00 Letter (Out) Alexandria Whitmore [facility] BUILDING 1.2.840.114 350.1.13.10 4.2.7.2.686 [id number] 134 [id number] [facility] 2023-05-07 00:00:00 2023-05-07 00:00:00 Orders Only Doctor Unassigned, [place] [facility] 1.2.840.114 350.1.13.10 4.2.7.2.686 [id number] [facility] 2023-05-04 00:00:00 2023-05-04 00:00:00 Telephone Alexandria Whitmore [facility] 1.2.840.114 350.1.13.10 4.2.7.2.686 [id number] 134 [id number] [facility] 2023-04-23 14:30:00 2023-04-23 15:15:09 Outpatient R ALEXANDRIA WHITMORE [facility] [id number] [facility] 2023-04-23 14:30:00 2023-04-23 15:15:09 Office Visit Alexandria Whitmore [facility] 1.2.840.114 350.1.13.10 4.2.7.2.686 [id number] 134 [id number] [facility] 2023-04-23 00:00:00 2023-04-23 00:00:00 Orders Only Doctor Unassigned, [place] [facility] 1.2.840.114 350.1.13.10 4.2.7.2.686 [id number] [facility] 2023-04-08 14:00:00 2023-04-08 14:00:00 Outpatient Suly WHITMOREALEXANDRIA [facility] [id number] [facility] 2023-01-05 08:30:00 2023-01-05 08:30:00 Outpatient ROALN PALOMINO [facility] [id number] [facility] 2022-12-02 10:00:00 2022-12-02 12:30:57 Outpatient MILAN PATEL [facility] [id number] [facility] 2022-12-02 10:00:00 2022-12-02 12:30:57 Office Visit Leslie Carreon Joseph [facility] 1.2.840.114 350.1.13.10 4.2.7.2.686 [id number] 161 [id number] [facility] 2022-12-01 00:00:00 2022-12-01 00:00:[address] [facility] 1.2.840.114 350.1.13.10 4.2.7.2.686 [id number] 161 [id number] [facility] 2022-11-26 00:00:00 2022-11-26 00:00:00 Telephone Cor[address] Llanos [facility] 1.2.840.114 350.1.13.10 4.2.7.2.686 [id number] 161 [id number] [facility] 2022-11-18 09:00:00 2022-11-18 14:20:05 Outpatient ROLAN PALOMINO [facility] [id number] [facility] 2022-11-18 09:00:00 2022-11-18 14:20:05 Office Visit Leslie Carreon [facility] 1.2.840.114 350.1.13.10 4.2.7.2.686 [id number] 161 [id number] [facility] 2022-11-18 10:15:00 2022-11-18 10:30:00 Completion Supervisor Visit Lab, [facility] Hermelindo Rolan [facility] 1.2.840.114 350.1.13.10 4.2.7.2.686 [id number] [facility] 2022-11-13 09:00:00 2022-11-13 09:31:00 Outpatient R ALEXANDRIA WHITMORE [facility] [id number] [facility] 2022-11-13 09:00:00 2022-11-13 09:31:00 Office Visit Alexandria Whitmore [facility] 1.2.840.114 350.1.13.10 4.2.7.2.686 [id number] [facility] 2022-11-13 00:00:00 2022-11-13 00:00:00 Letter (Out) Alexandria Whitmore [facility] 1.2.840.114 350.1.13.10 4.2.7.2.686 [id number] [facility] 2022-11-12 10:15:25 2022-11-12 23:59:00 Outpatient R HERMELINDO [facility] [id number] [facility] 2022-11-12 10:15:25 2022-11-12 23:59:00 Hospital Encounter Rolan Casarez [facility] 1..840.114 350.1.13.10 4.2.7.2.686 [id number] [facility] 2022-10-28 09:30:00 2022-10-28 09:59:16 Outpatient R HERMELINDO [facility] [id number] [facility] 2022-10-28 09:30:00 2022-10-28 09:59:16 Office Visit Hermelindo Rolan [facility] 1.2.840.114 350.1.13.10 4.2.7.2.686 [id number] [facility] 2022-10-28 00:00:00 2022-10-28 00:00:00 Letter (Out) Rolan Casarez [facility] 1.2.840.114 350.1.13.10 4.2.7.2.686 [id number] [facility] 2022-08-11 11:00:00 2022-08-11 11:47:20 Outpatient R MANNY VALLECILLO [facility] [id number] [facility] 2022-08-11 11:00:00 2022-08-11 11:47:20 Urgent Care Manny Vallecillo Unknown, Attending [facility] 1..840.114 350.1.13.10 4.2.7.2.686 [id number] [facility] 2022-06-16 00:00:00 2022-06-16 00:00:00 Telephone Hermelindo Rolan [facility] 1.2.840.114 350.1.13.10 4.2.7.2.686 [id number] [facility] 2022-06-13 14:05:25 2022-06-13 23:59:00 Outpatient R HERMELINDO ROLAN [facility] [id number] [facility] 2022-06-13 14:05:25 2022-06-13 23:59:00 Hospital Encounter Rolan Casarez [facility] 1..840.114 350.1.13.10 4.2.7.2.686 [id number] [facility] 2022-06-06 00:00:00 2022-06-06 00:00:00 [facility] [facility] [id number] [facility] 2022-05-27 14:00:00 2022-05-27 15:06:27 Outpatient R ROLAN CASAREZ [facility] [id number] [facility] 2022-05-27 14:00:00 2022-05-27 15:06:27 Office Visit Hermelindo Rolan [facility] 1.2840.114 350.1.13.10 4.2.7.2.686 [id number] [facility] 2022-05-27 00:00:00 2022-05-27 00:00:00 Orders Only Doctor Unassigned, [place] [facility] 1.840.114 350.1.13.10 4.2.7.2.686 [id number] [facility] 2022-02-21 12:00:22 2022-02-21 23:59:00 Hospital Encounter Fanronna [facility] 1.84.114 350.1.13.10 4.2.7.2.686 [id number] [facility] 2022-02-21 10:48:03 2022-02-21 11:59:00 [facility] [id number] 2022-02-21 10:48:03 2022-02-21 11:59:00 [facility] 1.84.114 350.1.13.10 4.2.7.2.686 [id number] [facility] 2022-02-05 13:00:00 2022-02-05 13:36:35 Outpatient R BROOKLYN GARDUNO [facility] [id number] [facility] 2022-02-05 13:00:00 2022-02-05 13:36:35 Office Visit Brooklyn Garduno [facility] 1.2.840.114 350.1.13.10 4.2.7.2.686 [id number] [facility] 2022-02-05 00:00:00 2022-02-05 00:00:00 Telephone Adum, Brooklyn Ridley [facility] 1.2.840.114 350.1.13.10 4.2.7.2.686 [id number] [facility] 2022-02-05 00:00:00 2022-02-05 00:00:00 Letter (Out) Adum, Brooklyn Ridley [facility] 1.2840.114 350.1.13.10 4.2.7.2.686 [id number] [facility] 2022-01-31 08:30:00 2022-01-31 09:33:19 Outpatient R ADUM, BROOKLYN [facility] [id number] [facility] 2022-01-31 08:30:00 2022-01-31 09:33:19 Office Visit Adum, Brooklyn Ridley [facility] 1.2840.114 350.1.13.10 4.2.7.2.686 [id number] [facility] 2022-01-31 00:00:00 2022-01-31 00:00:00 Orders Only Doctor Unassigned, [place] [facility] 1.2840.114 350.1.13.10 4.2.7.2.686 [id number] [facility] 2022-01-31 00:00:00 2022-01-31 00:00:00 Letter (Out) AdBrooklyn horn [facility] 1.2840.114 350.1.13.10 4.2.7.2.686 [id number] [facility] 2022-01-13 09:00:00 2022-01-13 09:00:00 Outpatient MILAN PATEL [facility] [id number] Roro s [facility] 2022-01-13 00:00:00 2022-01-13 00:00:00 Telephone Liu Carltno [facility] [place] 1.84.114 350.1.13.10 4.2.7.2.686 [id number] [facility] 2022-01-10 13:00:00 2022-01-10 13:00:00 Outpatient HAYLEY BRYANT [facility] [id number] [facility] 2022-01-02 10:45:00 2022-01-02 11:00:00 Completion Supervisor Visit 2, Adc Lab Hermelindo Rolan [facility] 1.840.114 350..13.10 4.2.7.2.686 [id number] [facility] 2022-01-02 09:30:00 2022-01-02 10:12:42 Outpatient Suly CASAREZ ROLAN [facility] [id number] [facility] 2022-01-02 09:30:00 2022-01-02 10:12:42 Office Visit Hermelindo [facility] 1.840.114 350..13.10 4.2.7.2.686 [id number] [facility] 2022-01-02 00:00:00 2022-01-02 00:00:00 Orders Only Doctor Unassigned, [place] [facility] 1..114 350.1.13.10 4.2.7.2.686 [id number] [facility] 2021-04-03 10:40:00 2021-04-03 10:40:00 Outpatient KAREN ZAMORANO [facility] [id number] [facility] 2021-02-22 00:00:00 2021-02-22 00:00:00 Tele[address] 1.2.840.114 350.1.13.10 4.2.7.2.686 [id number] [facility] 2021-02-12 00:00:00 2021-02-12 00:00:[address] Cas[address] [facility] 1.2.840.114 350.1.13.10 4.2.7.2.686 [id number] [facility] 2021-01-05 20:38:00 2021-01-05 22:55:00 Emergency BryanRoma darnell [facility] 1.2.840.114 350.1.13.10 4.2.7.2.686 [id number] [facility] 2020-08-23 15:00:00 2020-08-23 15:00:00 Outpatient Sluy CASAREZ [facility] [id number] [facility] 2020-08-06 14:00:00 2020-08-06 14:00:00 Outpatient Suly CASAREZ [facility] [id number] [facility] 2020-07-06 11:20:00 2020-07-06 11:20:34 Outpatient EMELY RICO [facility] [id number] [facility] 2020-06-15 11:20:00 2020-06-15 12:18:13 Outpatient EMELY RICO [facility] [id number] [facility] 2020-06-12 00:00:00 2020-06-12 00:00:00 Patient Outreach Chinmay Aly [facility] 1.2.840.114 350.1.13.10 4.2.7.2.686 [id number] 2020-06-12 00:00:00 2020-06-12 00:00:00 Patient Outreach Jermain Chinmayavril Mcgee [facility] 1.2.840.114 350.1.13.10 4.2.7.2.686 [id number] [facility] 2020-04-25 00:00:00 2020-04-25 00:00:00 Telephone Alexandria Whitmore [facility] 1.2.840.114 350.1.13.10 4.2.7.2.686 [id number] 2020-04-25 00:00:00 2020-04-25 00:00:00 Telephone Alexandria Whitmore [facility] 1.2.840.114 350.1.13.10 4.2.7.2.686 [id number] [facility] 2020-04-16 10:23:22 2020-04-16 10:43:22 Nurse Visit Nurse, Alena Timmons [facility] 1.2.840.114 350.1.13.10 4.2.7.2.686 [id number] [facility] 2020-04-16 10:20:00 2020-04-16 10:20:00 Outpatient R [facility] [id number] [facility] 2020-04-03 11:08:11 2020-04-03 11:23:11 Completion Supervisor Visit 2, Adc Lab Alena Erickson [facility] 1.2.840.114 350.1.13.10 4.2.7.2.686 [id number] [facility] 2020-04-03 11:00:00 2020-04-03 11:00:00 Outpatient R ALENA ERICKSON [facility] [id number] [facility] 2020-04-02 11:30:50 2020-04-02 13:18:47 Billing Encounter Karen Siddiqui [facility] 1.2.840.114 350.1.13.10 4.2.7.2.686 [id number] [facility] 2020-04-02 10:47:55 2020-04-02 11:50:03 [facility] 1.2.840.114 350.1.13.10 4.2.7.2.686 [id number] 2020-04-02 10:47:55 2020-04-02 11:50:03 [facility] 1.2.840.114 350.1.13.10 4.2.7.2.686 [id number] [facility] 2020-04-02 10:40:00 2020-04-02 10:40:00 [id number] 2020-04-02 00:00:00 2020-04-02 00:00:00 Letter (Out) Alena Erickson [facility] 1.2.840.114 350.1.13.10 4.2.7.2.686 [id number] [facility] 2020-02-24 13:11:12 2020-02-24 14:13:29 Office Visit Karen Siddiqui [facility] 1.2.840.114 350.1.13.10 4.2.7.2.686 [id number] [facility] 2020-02-24 13:00:00 2020-02-24 13:00:00 [facility] [id number] 2020-02-01 13:00:00 2020-02-01 13:00:00 Outpatient R [facility] [id number] [facility] 2020-01-30 14:47:20 2020-01-30 15:35:45 Office Visit Alexandria Whitmore [facility] 1.2.840.114 350.1.13.10 4.2.7.2.686 [id number] [facility] 2020-01-30 15:00:00 2020-01-30 15:00:00 Outpatient R ALEXANDRIA WHITMORE [facility] [id number] [facility] 2020-01-10 14:35:02 2020-01-10 16:02:32 Office Visit Rolan Casarez [facility] 1..840.114 350.1.13.10 4.2.7.2.686 [id number] [facility] 2020-01-10 14:45:00 2020-01-10 14:45:00 Outpatient R HERMELINDO ROLAN [facility] [id number] [facility] 2019-12-15 10:45:00 2019-12-15 10:45:00 Outpatient R HERMELINDO [facility] [id number] [facility] 2019-12-15 00:00:00 2019-12-15 00:00:00 Telephone Alena Erickson [facility] INVESTIGATOR [facility] 1..840.114 350.1.13.10 4.2.7.2.686 [id number] [facility] 2019-11-30 15:00:00 2019-11-30 15:00:00 Outpatient R [facility] [id number] [facility] 2019-11-18 09:30:00 2019-11-18 09:30:00 Outpatient R HERMELINDO [facility] [id number] [facility] 2019-11-14 00:00:00 2019-11-14 00:00:00 Telephone [facility] 1.2.840.114 350.1.13.10 4.2.7.2.686 [id number] [facility] 2019-10-13 00:00:00 2019-10-13 00:00:00 Orders Only Doctor Unassigned, [place] [facility] 1.2.840.114 350.1.13.10 4.2.7.2.686 [id number] [facility] 2019-10-12 12:44:00 2019-10-12 23:59:00 Hospital Encounter Dalia Escalante Eeg, Sapna Pedi Neuro [facility] [place] 1.2.840.114 350.1.13.10 4.2.7.2.686 [id number] [facility] 2019-10-12 12:44:33 2019-10-12 13:44:33 Office Visit Dalia Escalante [facility] [place] 1.2.840.114 350.1.13.10 4.2.7.2.686 [id number] [facility] 2019-10-12 13:00:00 2019-10-12 13:00:00 Outpatient R DALIA ESCALANTE [facility] [id number] [facility] 2019-10-07 12:46:26 2019-10-07 13:32:19 Office Visit Alexandria Whitmore [facility] Building 1.2.840.114 350.1.13.10 4.2.7.2.686 [id number] [facility] 2019-10-07 13:00:00 2019-10-07 13:00:00 Outpatient R ALEXANDRIA WHITMORE [facility] [id number] [facility] 2019-10-07 00:00:00 2019-10-07 00:00:00 Orders Only Doctor Unassigned, [place] 1.2.840.114 350.1.13.10 4.2.7.2.686 [id number] [facility] 2019-10-06 14:55:54 2019-10-06 17:13:05 Office [facility] 1.2.840.114 350.1.13.10 4.2.7.2.686 [id number] [facility] 2019-10-06 15:00:00 2019-10-06 15:00:00 Outpatient R ALENA ERICKSON [facility] [id number] [facility] 2019-10-06 00:00:00 2019-10-06 00:00:00 Orders Only Doctor Unassigned, [place] 1.2.840.114 350.1.13.10 4.2.7.2.686 [id number] [facility] 2019-10-05 00:00:00 2019-10-05 00:00:00 Telephone Rolan Casarez [facility] Building 1.2.840.114 350.1.13.10 4.2.7.2.686 [id number] [facility] 2019-09-28 15:30:00 2019-09-28 15:30:00 Outpatient R [facility] [id number] [facility] 2019-09-15 15:00:00 2019-09-15 15:00:00 Outpatient R ROLAN CASAREZ [facility] [id number] [facility] 2019-08-31 15:00:00 2019-08-31 15:00:00 Outpatient R [facility] [id number] [facility] 2019-08-16 07:38:13 2019-08-16 23:59:00 Outpatient R ALEXANDRIA WHITMORE [facility] [id number] [facility] 2019-08-16 07:38:00 2019-08-16 23:59:00 Hospital Encounter Alexandria Whitmore [facility] 1.2.840.114 350.1.13.10 4.2.7.2.686 [id number] [facility] 2019-08-08 00:00:00 2019-08-08 00:00:00 Case Management Rolan Casarez [facility] Building 1.2.840.114 350.1.13.10 4.2.7.2.686 [id number] [facility] 2019-08-04 13:33:06 2019-08-04 14:36:24 Office Visit Alexandria Whitmore [facility] 1.2.840.114 350.1.13.10 4.2.7.2.686 [id number] [facility] 2019-08-04 13:30:00 2019-08-04 13:30:00 Outpatient R ALEXANDRIA WHITMORE [facility] [id number] [facility] 2019-08-04 00:00:00 2019-08-04 00:00:00 Orders Only Doctor Unassigned, [place] 1.2.840.114 350.1.13.10 4.2.7.2.686 [id number] [facility] 2019-07-19 00:00:00 2019-07-19 00:00:00 Telephone Alexandria Whitmore [facility] 1.2.840.114 350.1.13.10 4.2.7.2.686 [id number] [facility] 2019-06-16 11:24:51 2019-06-16 11:39:51 Completion Supervisor Visit 2, Adc Lab Alena Erickson [facility] Building 1.2.840.114 350.1.13.10 4.2.7.2.686 [id number] [facility] 2019-06-16 11:15:00 2019-06-16 11:15:00 Outpatient R ALENA ERICKSON [facility] [id number] [facility] 2019-06-16 00:00:00 2019-06-16 00:00:00 Orders Only Doctor Unassigned, [place] [facility] 1..840.114 350.1.13.10 4.2.7.2.686 [id number] [facility] 2019-06-16 00:00:00 2019-06-16 00:00:00 Telephone Alena Erickson [facility] 1.2.840.114 350.1.13.10 4.2.7.2.686 [id number] [facility] 2019-06-15 10:45:00 2019-06-15 10:45:00 Outpatient R ROLAN CASAREZ [facility] [id number] [facility] 2019-06-15 08:26:10 2019-06-15 08:56:10 Telemedici ne Visit Hermelindo [facility] Building 1.2.840.114 350.1.13.10 4.2.7.2.686 [id number] [facility] 2019-06-09 08:45:00 2019-06-09 08:45:00 Outpatient R ROLAN CASAREZ [facility] [id number] [facility] 2019-06-02 15:45:00 2019-06-02 15:45:00 [facility] [id number] 2019-05-31 13:45:00 2019-05-31 13:45:00 Outpatient R [facility] [id number] [facility] 2019-05-23 14:21:31 2019-05-23 16:27:38 Office Visit Alena Erickson [facility] Building 1.2.840.114 350.1.13.10 4.2.7.2.686 [id number] [facility] 2019-05-23 14:30:00 2019-05-23 14:30:00 Outpatient R ALENA ERICKSON [facility] [id number] [facility] 2019-05-23 00:00:00 2019-05-23 00:00:00 Letter (Out) Alena Erickson [facility] 1..840.114 350.1.13.10 4.2.7.2.686 [id number] [facility] 2019-05-16 15:19:14 2019-05-16 15:52:21 Nurse Visit Nurse, [facility] [place] Whitmore [facility] 1.840.114 350.1.13.10 4.2.7.2.686 [id number] [facility] 2019-05-16 15:30:00 2019-05-16 15:30:00 Outpatient R ALEXANDRIA WHITMORE [facility] [id number] [facility] 2019-05-03 13:12:12 2019-05-03 14:43:58 Office Visit Urology, Clc Bls Demetrius Rogel [facility] Building 1.840.114 350.1.13.10 4.2.7.2.686 [id number] [facility] 2019-05-03 00:00:00 2019-05-03 00:00:00 Orders Only Doctor Unassigned, [place] [facility] 1.840.114 350.1.13.10 4.2.7.2.686 [id number] [facility] 2019-05-03 00:00:00 2019-05-03 00:00:00 Letter (Out) Urology, Clc Bls [facility] 1.2.840.114 350.1.13.10 4.2.7.2.686 [id number] [facility] 2019-03-22 14:44:34 2019-03-22 16:20:55 Office Visit Urology, Sapna Delacruz princess Demetrius [facility] [place] 1.2.840.114 350.1.13.10 4.2.7.2.686 [id number] [facility] 2018-12-01 00:00:00 2018-12-01 00:00:00 Telephone Apryl Guerrero [facility] 1.2.840.114 350.1.13.10 4.2.7.2.686 [id number] [facility] 2018-11-30 00:00:00 2018-11-30 00:00:00 Telephone Apryl Guerrero [facility] 1.2.840.114 350.1.13.10 4.2.7.2.686 [id number] [facility] 2018-11-12 07:59:52 2018-11-12 08:43:27 Office Visit Apryl Guerrero [facility] 1.2.840.114 350.1.13.10 4.2.7.2.686 [id number] [facility] 2018-11-12 00:00:00 2018-11-12 00:00:00 Letter (Out) Apryl Guerrero [facility] 1.2.840.114 350.1.13.10 4.2.7.2.686 [id number] [facility] 2018-11-11 08:24:16 2018-11-11 08:54:22 Nurse Visit Nurse, [facility] [place] Whitmore [facility] 1.2.840.114 350.1.13.10 4.2.7.2.686 [id number] [facility] 2018-11-11 00:00:00 2018-11-11 00:00:00 Orders Only Doctor Unassigned, [place] [facility] 1.2.840.114 350.1.13.10 4.2.7.2.686 [id number] [facility] 2018-10-07 14:49:05 2018-10-07 16:35:54 Office Visit Karen Siddqiui Elizabeth A [facility] 1.2.840.114 350.1.13.10 4.2.7.2.686 [id number] [facility] Results Test Description Test Time Test Comments Results Result Co mments Source [facility] [id number] 23:58:38EXAM: US PELVIS LIMITED HISTORY: 24 years-old Female; Provided indication: pain near incision sitex1 month . TECHNIQUE: Dedicated sonographic imaging and cine clips using grayscale andcolor Doppler of the suprapubic region was performed. Sdv Pilot/Navigator/Dds Operator imageswere uploaded. COMPARISON: CT abdomen pelvis obtained on 12/09/2023 FINDINGS: Ultrasonography of the area of interest at the incisiondemonstrate the scar without a solid mass or fluid collection. [facility] [id number] 20:33:00* Test Item Value Reference Range Interpretation Comme nts POCT PREG (test code = 1605) Negative On board controls acceptable with C Line (test code = 3574) Yes POCT PREG LOT # (test code = 3575) POCT PREG TEST DATE ( test code = 3576) [facility]/SUPPLY [id number] 16:25:58 Ordered by an unspecified provider.[facility] Texas[facility]KG (SCANNED DOCUMENTS)2024-04-12 18:25:03Ordered by an unspecified provider. [facility] [id number] 19:49:00* Test Item Value Reference Range Interpretation Comme nts POCT PREG (test code = 1605) Negative On board controls acceptable with C Line (test code = 3574) Yes POCT PREG LOT # (test code = 3575) POCT PREG TEST DATE ( test code = 3576) [facility]/SUPPLY [id number] 19:57:03 Or[facility] an unspecified provider[facility] [id number] 22:13:52Ordered by an unspecified provider.[facility]/SUPPLY [id number] 21:03:16Ordered by an unspecified provider.[facility]/SUPPLY JUSTIFICATION 2024-02-25 21:03:15Ordered by an unspecified provider.[facility] TexasCT ABDOMEN PELVIS W [id number] 06:15:04Ordering physician:KAYLEIGH LLANOS CLINICAL HISTORY: Abdominal pain, fever Recent C/S 5 ?days ago, presenting with abdominal pain, subjective fever TECHNIQUE: Contrast enhanced CT images were obtained through the abdomenand pelvis with IV contrast. ?Coronal and sagittal reformats were alsoobtained.ALARA (As Low As Reasonably Achievable) ?principles was usedduring this examination. COMPARISON: ?None FINDINGS: The lung bases are clear bilaterally. ? The liver, spleen, gallbladder, pancreas, adrenal glands and kidneys areunremarkable. ? The small bowel and colon are without bowel wall thickening or dilatation.The appendix is nondilated and demonstrates air but there is mild adjacentinflammatory changes No free fluid or adenopathy is demonstrated in the abdomen or pelvis. ?Noevidence of freeair small amount of air within the abdominal wall. The urinary bladder is decompressed and demonstrates wall thickening.Heterogeneous enlarged uterus. The aortoiliac vessels are normal caliber. No acute osseous abnormality.[facility] TexasComp. Metabolic Panel ([id number]) 2023-12-09 05:06:34* Test Item Value Reference Range Interpretation Comme nts NA (test code = 3600249083) 133 mmol/L 135-145 L K (test code = 3024863519) 3.7 mmol/L 3.5-5.0 CL (test code = 1383173920) 104 mmol/L 98-108 CO2 TOTAL (test code = 2713488834) 22 mmol/L 23-31 L AGAP (test code = 5607850605) 7 2-16 BUN (test code = 0310763901) 9 mg/dL 7-23 GLUCOSE (test code = 9998321995) 108 mg/dL 70-110 CREATININE (test code = 2160-0) 0.54 mg/dL 0.50-1.04 TOTAL BILI (test code = 1229845820) 0.6 mg/dL 0.1-1.1 CALCIUM (test code = 5883971602) 9.1 mg/dL 8.6-10.6 T PROTEIN (test code = 3939063934) 7.0 g/dL 6.3-8.2 ALBUMIN (test code = 9468094827) 3.6 g/dL 3.5-5.0 ALK PHOS (test code = 2800194100) 114 U/L 34-122 ALTv (test code = 1742-6) 18 U/L 5-35 AST(SGOT) (test code = 9899117839) 18 U/L 13-40 eGFR (test code = 80091-1) 134.5 mL/min/1.73m2 CKD-EPI eGFR (2020). Assuming creatinine has been stable day-to-day for at least three months, the eGFR indicates Category G1 (>= 90 mL/min/1.73 m2) Lab Interpretation (test code = 16699-3) [facility]* Test Item Value Reference Range Interpretation Comme nts LIPASE (test code = 8972068649) 36 U/L 0-220 Lab Interpretation (test cod e = 11946-7) [facility] [id number] 04:54:50* Test Item Value Reference Range Interpretation Comme nts WBC (test code = 6690-2) 15.99 4.30-11.10 H RBC (test code = 789-8) 3.47 3.93-5.25 L HGB (test code = 718-7) 9.5 g/dL 11.6-15.0 L HCT (test code = 4544-3) 29.1 % 35.7-45.2 L MCV (test code = 787-2) 83.9 fL 80.6-95.5 MCH (test code = 785-6) 27.4 pg 25.9-32.8 MCHC (test code = 786-4) 32.6 g/dL 31.6-35.1 RDW-SD (test code = 28576-7) 43.7 fL 39.0-49.9 RDW-CV (test code = 788-0) 14.3 % 12.0-15.5 PLT (test code = 777-3) 394 166-358 H MPV (test code = 74394-0) 9.1 fL 9.5-12.9 L NRBC/100 WBC (test code = 3036954693) 0.0 0.0-10.0 NRBC x10^3 (test code = 7693454498) See_Comment [Automated message] The system which generated this result transmitted reference range: 10*3/?L. The reference range was not used to interpret this result as normal/abnormal. GRAN MAT (NEUT) % (test code = 770-8) 79.4 % IMM GRAN % (test code = 7647958244) 1.20 % LYMPH % (test code = 736-9) 9.7 % MONO % (test code = 5905-5) 7.8 % EOS % (test code = 713-8) 1.7 % BASO % (test code = 706-2) 0.2 % GRAN MAT x10^3(ANC) (test code = 9665758962) 12.71 10*3/uL 1.88-7.09 H IMM GRAN x10^3 (test code = 4135983234) 0.19 10*3/uL 0.00-0.06 H LYMPH x10^3 (test code = 731-0) 1.55 10*3/uL 1.32-3.29 MONO x10^3 (test code = 742-7) 1.24 10*3/uL 0.33-0.92 H EOS x10^3 (test code = 711-2) 0.27 10*3/uL 0.03-0.39 BASO x10^3 (test code = 704-7) 0.03 10*3/uL 0.01-0.07 Lab Interpretation (test code = 94264-6) [facility]normal [facility] Texas[facility] Acid Whole Hkojr7631-45-09 04:18:30* Test Item Value Reference Range Interpretation Comme nts LACTIC ACID (test code = 2439937780) 0.68 mmol/L 0.50-2.20 Lab Interpretation (test cod e = 36327-2) Normal [facility] TexasD[facility]/SUPPLY KCPRHREKOAFRB4823-32-17 18:57:15 Ordered by an unspecified provider.[facility] TexasCBC with Whtkljsghwqj3557-25-22 09:39:28* Test Item Value Reference Range Interpretation Comme nts WBC (test code = 6690-2) 15.33 4.30-11.10 H RBC (test code = 789-8) 3.01 3.93-5.25 L HGB (test code = 718-7) 8.1 g/dL 11.6-15.0 L HCT (test code = 4544-3) 25.5 % 35.7-45.2 L MCV (test code = 787-2) 84.7 fL 80.6-95.5 MCH (test code = 785-6) 26.9 pg 25.9-32.8 MCHC (test code = 786-4) 31.8 g/dL 31.6-35.1 RDW-SD (test code = 88814-2) 43.9 fL 39.0-49.9 RDW-CV (test code = 788-0) 14.1 % 12.0-15.5 PLT (test code = 777-3) 233 166-358 MPV (test code = 35351-9) 10.4 fL 9.5-12.9 NRBC/100 WBC (test code = 2956339429) 0.0 0.0-10.0 NRBC x10^3 (test code = 7818057666) See_Comment [Automated message] The system which generated this result transmitted reference range: 10*3/?L. The reference range was not used to interpret this result as normal/abnormal. GRAN MAT (NEUT) % (test code = 770-8) 78.6 % IMM GRAN % (test code = 5168209276) 0.50 % LYMPH % (test code = 736-9) 12.9 % MONO % (test code = 5905-5) 7.5 % EOS % (test code = 713-8) 0.3 % BASO % (test code = 706-2) 0.2 % GRAN MAT x10^3(ANC) (test code = 9851419992) 12.06 10*3/uL 1.88-7.09 H IMM GRAN x10^3 (test code = 9743777654) 0.08 10*3/uL 0.00-0.06 H LYMPH x10^3 (test code = 731-0) 1.97 10*3/uL 1.32-3.29 MONO x10^3 (test code = 742-7) 1.15 10*3/uL 0.33-0.92 H EOS x10^3 (test code = 711-2) 0.04 10*3/uL 0.03-0.39 BASO x10^3 (test code = 704-7) 0.03 10*3/uL 0.01-0.07 Lab Interpretation (test code = 84630-9) Abnormal [facility] with Bkdjtovzmxks1557-82-52 09:39:28* Test Item Value Reference Range Interpretation Comme nts WBC (test code = 6690-2) 15.33 4.30-11.10 H RBC (test code = 789-8) 3.01 3.93-5.25 L HGB (test code = 718-7) 8.1 g/dL 11.6-15.0 L HCT (test code = 4544-3) 25.5 % 35.7-45.2 L MCV (test code = 787-2) 84.7 fL 80.6-95.5 MCH (test code = 785-6) 26.9 pg 25.9-32.8 MCHC (test code = 786-4) 31.8 g/dL 31.6-35.1 RDW-SD (test code = 56209-5) 43.9 fL 39.0-49.9 RDW-CV (test code = 788-0) 14.1 % 12.0-15.5 PLT (test code = 777-3) 233 166-358 MPV (test code = 98717-7) 10.4 fL 9.5-12.9 NRBC/100 WBC (test code = 7183973979) 0.0 0.0-10.0 NRBC x10^3 (test code = 1305002757) See_Comment [Automated message] The system which generated this result transmitted reference range: 10*3/?L. The reference range was not used to interpret this result as normal/abnormal. GRAN MAT (NEUT) % (test code = 770-8) 78.6 % IMM GRAN % (test code = 8143370999) 0.50 % LYMPH % (test code = 736-9) 12.9 % MONO % (test code = 5905-5) 7.5 % EOS % (test code = 713-8) 0.3 % BASO % (test code = 706-2) 0.2 % GRAN MAT x10^3(ANC) (test code = 3384293329) 12.06 10*3/uL 1.88-7.09 H IMM GRAN x10^3 (test code = 8131600253) 0.08 10*3/uL 0.00-0.06 H LYMPH x10^3 (test code = 731-0) 1.97 10*3/uL 1.32-3.29 MONO x10^3 (test code = 742-7) 1.15 10*3/uL 0.33-0.92 H EOS x10^3 (test code = 711-2) 0.04 10*3/uL 0.03-0.39 BASO x10^3 (test code = 704-7) 0.03 10*3/uL 0.01-0.07 Lab Interpretation (test code = 06083-2) Abnormal [facility] (D) IMMUNE CKHPRELU4174-04-39 17:04:37* Test Item Value Reference Range Interpretation Comme nts RHIG CANDIDATE? (test code = 5188) No- see comment Patient is not a candidate for RhIg- Patient is Rh Positive.Per[facility] at [facility] - [facility] Blood [address] [place] [id number] Free: [phone] No. [id number] [facility] (D) IMMUNE MRLJVKQH7956-46-58 17:04:37* Test Item Value Reference Range Interpretation Comme nts RHIG CANDIDATE? (test code = 5188) No- see comment Patient is not a candidate for RhIg- Patient is Rh Positive.[facility] - [facility] Blood [address] [place] [phone] Free: [phone] No. [id number] [facility] Ne[facility]axial Tnwop0222-84-03 10:50:00 Patito Smith MD ? ? 12/03/2023 ?6:48 AM Central Neuraxial Block Date/Time: 12/03/2023 5:50 AM Performed by: Patito Smith MDAuthorized by: Patito Smith MD ?Patient Location: [facility] Time: 12/03/2023 6:00 AMReason for Block: OB request, Surgical anesthesia and Patient requestStaff: ?Anesthesiologist: Patito Smith MD ?Performed by: anesthesiologistPreanesthetic Checklist: patient identified, I V checked, risks and benefits explained, monitors and equipment checked, timeout performed, ob surgical consent/approval, pre-op evaluation, surgical consent, site marked, anesthesia consent, OB/surgical consent verified, ob/surgical consent approval and ob/surgical consent verifiedProcedure: ?Typeof Neuraxial: Single Shot and Spinal ? Sterility Prep cap, drape, gloves, hand hygiene and mask ? ?Sedation Level no sedation ?Patient Position: sitting ?Prep: Betadine and patient draped ? ?Monitoring: heart rate, laboratory monitor / EKG, continuous pulse ox, heart rate / toco, NIBP and ETCO2 ?Location: lumbar (1-5) ?Lumbar: L3-L4 ?Approach: midline ? ?Technique: single shot ?Guidance with: wade roy technique}Epidural/Spinal Touchet and/or Catheter: ?Epidural/Spinal Kit: BBraun ?: Bc. ?Needle Gauge: 25 G ?Needle Length: 3.5 in (8.89 cm) ?Number of Attempts: 1 ?Test Dose: no test doseAssessment: ?Sensory Level: above T10 ?Block Outcome: successful block, appropriate motor block, appropriate sensory block, no apparent complications, pain improved, pain relieved, patient comfortable, patient satisfied, patient tolerated procedure well and positive pain relief ? ?Events: cerebrospinal fluid and block blood pressure change ?Procedure Assessment: patient tolerated procedure well with no complicationsNotes: ? Smooth and atraumatic, (+) Local, (+) STF, attempt x1, barbitage x1, ?noapparent complications.[facility] OR JORGE ONLY - [id number] 10:12:14* Test Item Value Reference Range Interpretation Comme nts RPR (Qualitative) (test code = 56057-3) Nonreactive Nonreactive Lab Interpretation (test cod e = 98989-9) Normal [facility] OR JORGE ONLY - [id number] 10:12:14* Test Item Value Reference Range Interpretation Comme nts RPR (Qualitative) (test code = 41569-5) Nonreactive Nonreactive Lab Interpretation (test cod e = 69271-6) Normal [facility]2024-09-12 10:09:56* Test Item Value Reference Range Interpretation Comme nts CREATININE (test code = 2160-0) 0.39 mg/dL 0.50-1.04 L eGFR (test code = 35826-6) 145.5 mL/min/1.73m2 CKD-EPI eGFR (2020). Assuming creatinine has been stable day-to-day for at least three months, the eGFR indicates Category G1 (>= 90 mL/min/1.73 m2) Lab Interpretation (test code = 29096-7) Abnormal [facility]2024-09-12 10:09:56* Test Item Value Reference Range Interpretation Comme nts CREATININE (test code = 2160-0) 0.39 mg/dL 0.50-1.04 L eGFR (test code = 89701-0) 145.5 mL/min/1.73m2 CKD-EPI eGFR (2020). Assuming creatinine has been stable day-to-day for at least three months, the eGFR indicates Category G1 (>= 90 mL/min/1.73 m2) Lab Interpretation (test code = 66577-7) [facility] Ckdgnai6893-19-97 20:44:27 * Test Item Value Reference Range Interpretation Comme nts HBsAg Semi-Quantitative (abe t code = 5195-3) 0.12 Negative [facility] Pjluxtc2003-18-35 20:44:27 * Test Item Value Reference Range Interpretation Comme nts HBsAg Semi-Quantitative (abe t code = 5195-3) 0.12 Negative [facility]HIV [facility]2 Ag-Ab with Sgxyqc2616-54-79 18:05:24* Test Item Value Reference Range Interpretation Comme nts HIV Semi-quantitative (test code = 38464-4) 0.20 Negative HAZEL (test code = HAZEL) Non-reactive for HIV-1 antigen and HIV-1/HIV-2 antibodies. ?No laboratory evidence of HIV infection. ?Repeat in 2-4 weeks if acute HIV infection is suspected. [facility]HIV 1/2 Ag-Ab with Wmtmwv7215-60-33 18:05:24* Test Item Value Reference Range Interpretation Comme nts HIV Semi-quantitative (test code = 93195-6) 0.20 Negative HAZEL (test code = HAZEL) Non-reactive for HIV-1 antigen and HIV-1/HIV-2 antibodies. ?No laboratory evidence of HIV infection. ?Repeat in 2-4 weeks if acute HIV infection is suspected. [facility] TexasCBC with Ikrniqznrcxw5965-62-34 17:06:36* Test Item Value Reference Range Interpretation Comme nts WBC (test code = 6690-2) 8.81 4.30-11.10 RBC (test code = 789-8) 3.81 3.93-5.25 L HGB (test code = 718-7) 10.6 g/dL 11.6-15.0 L HCT (test code = 4544-3) 31.7 % 35.7-45.2 L MCV (test code = 787-2) 83.2 fL 80.6-95.5 MCH (test code = 785-6) 27.8 pg 25.9-32.8 MCHC (test code = 786-4) 33.4 g/dL 31.6-35.1 RDW-SD (test code = 55083-2) 42.5 fL 39.0-49.9 RDW-CV (test code = 788-0) 14.0 % 12.0-15.5 PLT (test code = 777-3) 250 166-358 MPV (test code = 78748-5) 10.4 fL 9.5-12.9 NRBC/100 WBC (test code = 5770579408) 0.0 0.0-10.0 NRBC x10^3 (test code = 3581087702) See_Comment [Automated messa ge] The system which generated this result transmitted reference range: 10*3/?L. The reference range was not used to interpret this result as normal/abnormal. GRAN MAT (NEUT) % (test code = 770-8) 71.5 % IMM GRAN % (test code = 0351752900) 0.50 % LYMPH % (test code = 736-9) 19.3 % MONO % (test code = 5905-5) 8.4 % EOS % (test code = 713-8) 0.2 % BASO % (test code = 706-2) 0.1 % GRAN MAT x10^3(ANC) (test code = 7604492302) 6.30 10*3/uL 1.88-7.09 IMM GRAN x10^3 (test code = 3381712301) 0.04 10*3/uL 0.00-0.06 LYMPH x10^3 (test code = 731-0) 1.70 10*3/uL 1.32-3.29 MONO x10^3 (test code = 742-7) 0.74 10*3/uL 0.33-0.92 EOS x10^3 (test code = 711-2) 0.03-0.39 L BASO x10^3 (test code = 704-7) 0.01-0.07 Lab Interpretation (test code = 13795-8) Abnormal [facility] with Abctqyadzdhs5113-49-49 17:06:36* Test Item Value Reference Range Interpretation Comme nts WBC (test code = 6690-2) 8.81 4.30-11.10 RBC (test code = 789-8) 3.81 3.93-5.25 L HGB (test code = 718-7) 10.6 g/dL 11.6-15.0 L HCT (test code = 4544-3) 31.7 % 35.7-45.2 L MCV (test code = 787-2) 83.2 fL 80.6-95.5 MCH (test code = 785-6) 27.8 pg 25.9-32.8 MCHC (test code = 786-4) 33.4 g/dL 31.6-35.1 RDW-SD (test code = 70763-7) 42.5 fL 39.0-49.9 RDW-CV (test code = 788-0) 14.0 % 12.0-15.5 PLT (test code = 777-3) 250 166-358 MPV (test code = 28141-2) 10.4 fL 9.5-12.9 NRBC/100 WBC (test code = 6542551472) 0.0 0.0-10.0 NRBC x10^3 (test code = 7181992567) See_Comment [Automated messa ge] The system which generated this result transmitted reference range: 10*3/?L. The reference range was not used to interpret this result as normal/abnormal. GRAN MAT (NEUT) % (test code = 770-8) 71.5 % IMM GRAN % (test code = 6827405622) 0.50 % LYMPH % (test code = 736-9) 19.3 % MONO % (test code = 5905-5) 8.4 % EOS % (test code = 713-8) 0.2 % BASO % (test code = 706-2) 0.1 % GRAN MAT x10^3(ANC) (test code = 3630321251) 6.30 10*3/uL 1.88-7.09 IMM GRAN x10^3 (test code = 6219097538) 0.04 10*3/uL 0.00-0.06 LYMPH x10^3 (test code = 731-0) 1.70 10*3/uL 1.32-3.29 MONO x10^3 (test code = 742-7) 0.74 10*3/uL 0.33-0.92 EOS x10^3 (test code = 711-2) 0.03-0.39 L BASO x10^3 (test code = 704-7) 0.01-0.07 Lab Interpretation (test code = 55404-6) Abnormal [facility]Type and Screen - ONCE LPEC7138-40-68 17:03:00 * Test Item Value Reference Range Interpretation Comme nts ABO & RH (test code = 20) A POSITIVE IAT (test code = 1185) Negative [facility] TexasType and Screen - ONCE [id number] 17:03:00 * Test Item Value Reference Range Interpretation Comme nts ABO & RH (test code = 20) A POSITIVE IAT (test code = 1185) Negative [facility] TexasPOCT Urinalysis w/o Specific Suytpck4861-06-29 14:11:00* Test Item Value Reference Range Interpretation Comme [...] = 3257) n/a Negative - Negati ve [facility] TexasPOCT Urinalysis w/o Specific Hhhywib3277-91-52 20:55:00* Test Item Value Reference Range Interpretation Comme nts POCT PH U (test code = 3254) n/a 5-8 POCT U LEUK EST (test code = 3263) n/a Negative - Negative POCT U NIT (test code = 3262) n/a Negative - Negati ve POCT U PROT (test code = 3259) negative Negative - Negat thea POCT U GLU (test code = 3256) normal Negative - Negati ve POCT U KETONE (test code = 3258) n/a Negative - Neg ative POCT U BLD (test code = 3257) n/a Negative - Negati ve [facility] TexasDSU BFR-FQ7009-20-21 18:20:46Ordered by an unspecified provider.[facility]PO[facility] Urinalysis w/o Specific Bvxmwaq8451-87-25 15:32:00* Test Item Value Reference Range Interpretation Comme nts POCT PH U (test code = 3254) N/A 5-8 POCT U LEUK EST (test code = 3263) N/A Negative - Negative POCT U NIT (test code = 3262) N/A Negative - Negati ve POCT U PROT (test code = 3259) Trace Negative - Negat thea POCT U GLU (test code = 3256) Negative Negative - Negati ve POCT U KETONE (test code = 3258) Small Negative - Neg ative POCT U BLD (test code = 3257) N/A Negative - Negati ve [facility] Urinalysis w/o Specific Sjdpmyn9683-78-23 14:30:00* Test Item Value Reference Range Interpretation Comme nts POCT PH U (test code = 3254) 7 mg/dl 5-8 POCT U LEUK EST (test code = 3263) negative Negative - Negative POCT U NIT (test code = 3262) negative Negative - Negati ve POCT U PROT (test code = 3259) trace Negative - Negat thea POCT U GLU (test code = 3256) negative Negative - Negati ve POCT U KETONE (test code = 3258) negative Negative - Neg ative POCT U BLD (test code = 3257) negative Negative - Negati ve [facility] Urinalysis w/o Specific Qennbdm0090-38-91 16:08:00* Test Item Value Reference Range Interpretation Comme nts POCT PH U (test code = 3254) n/a 5-8 POCT U LEUK EST (test code = 3263) n/a Negative - Negative POCT U NIT (test code = 3262) n/a Negative - Negati ve POCT U PROT (test code = 3259) Negative Negative - Negat thea POCT U GLU (test code = 3256) 50 Negative - Negati ve POCT U KETONE (test code = 3258) n/a Negative - Neg ative POCT U BLD (test code = 3257) n/a Negative - Negati ve [facility] Urinalysis w/o Specific Xvrhgbk7868-44-08 21:34:00* Test Item Value Reference Range Interpretation Comme nts POCT PH U (test code = 3254) n.a 5-8 POCT U LEUK EST (test code = 3263) n.a Negative - Negative POCT U NIT (test code = 3262) n.a Negative - Negati ve POCT U PROT (test code = 3259) negative Negative - Negat thea POCT U GLU (test code = 3256) negative Negative - Negati ve POCT U KETONE (test code = 3258) n.a Negative - Neg ative POCT U BLD (test code = 3257) n.a Negative - Negati ve [facility] Ur[facility] w/o Specific Uvkfgte0078-76-72 16:06:00* Test Item Value Reference Range Interpretation Comme nts POCT PH U (test code = 3254) n/a 5-8 POCT U LEUK EST (test code = 3263) n/a Negative - Negative POCT U NIT (test code = 3262) n/a Negative - Negati ve POCT U PROT (test code = 3259) negative Negative - Negat thea POCT U GLU (test code = 3256) 100 Negative - Negati ve POCT U KETONE (test code = 3258) n/a Negative - Neg ative POCT U BLD (test code = 3257) n/a Negative - Negati ve [facility] Urinal[facility] w/o Specific Brfflfw8931-27-68 13:30:00* Test Item Value Reference Range Interpretation Comme nts POCT PH U (test code = 3254) n/a 5-8 POCT U LEUK EST (test code = 3263) n/a Negative - Negative POCT U NIT (test code = 3262) n/a Negative - Negati ve POCT U PROT (test code = 3259) negative Negative - Negat thea POCT U GLU (test code = 3256) normal Negative - Negati ve POCT U KETONE (test code = 3258) n/a Negative - Neg ative POCT U BLD (test code = 3257) n/a Negative - Negati ve [facility] TexasAlpha Fetoprotein-Maternal Eff3407-44-86 16:07:26* Test Item Value Reference Range Interpretation Comme nts AFP-MS (test code = 4590016025) 28.8 ng/mL AFP-MS MoM (test code = 4313535512) 0.58 WEIGHT (test code = 3041541528) 195.4 lbs RACE (test code = 9881086173) GEST. AGE (test code = 7677076548) 20,0 INS. DEP (test code = 5883510274) No LMP (test code = 9427155464) 20230311 US DATE (test code = 4314873790) PE DATE (test code = 5571123914) METHOD (test code = 9069598948) LMP MULT GEST (test code = 0012083416) No Down Syndrome History (test code = 3427181693) NTD HX (test code = 3397636900) No INITAL OR REPEAT (test code = 3496461061) Initial Testing SMOKER (test code = 4989286819) No RH (test code = 9373863888) Positive OSB INTERP (test code = 3443092892) See Note The maternal ser um AFP result is NOT elevated for a of thisgestational age. The risk of an open neural tube defect is less thanthe screening cut-off. OSB RSK (test code = 7724648053) 1:6830 The risk of OSB is equal to 1:6830The OSB cut-off is 2.53 (1:104) OSB SCRN (test code = 1722784229) Negative [facility] TexasKeppra (Levetiracetam)2023-07-30 00:18:29* Test Item Value Reference Range Interpretation Comme nts KEPPRA (test code = 0811708946) 4 ug/mL 12-46 L HAZEL (test code = HAZEL) Therapeutic range: 12-46 ?g/mL ? ?Toxic: Not well established.Test developed and characteristics determined by [facility]. Lab Interpretation (test code = 02131-9) Abnormal [facility] TexasElectroencephalogram (EEG) - Duration of test: 20-60 mins; Release to patient: Kuqeavbts7990-20-17 00:00:00Date and Time of Procedure: 07/16/2023, 8:39:30-9:00:18 REPORT TECHNICAL SUMMARY: The EEG was recorded digitally. Electrodes were applied using the International 10/20 System of electrode placement. Eye movements and rhythm strip ECG were monitored on separate channels of the ongoing EEG recording. The occipital dominant rhythm consists of moderate amplitude 10-11Hz activity. More anteriorly, similar as well as faster frequencies are present, including low amplitude 18-22 Hz activities in the anterior leads. Drowsiness and sleep do not reveal any abnormalities. Photic stimulation and Hyperventilation were not employed in this study. No electrographic seizures or epileptiform abnormalities are seen. IMPRESSION: This EEG is normal. An EMU (epilepsy monitoring unit) referral or long-term (24-96 hours) EEG might be beneficial in this case if clinically indicated, as they have significantly greater sensitivity than a 20-60 minute EEG, which has low sensitivity for detecting epileptiform abnormalities. The absence of epileptiform abnormalities in a 20-60 minute EEG does not necessarily rule out a diagnosis of epilepsy or the potential for epileptic seizures to occur. London Mckeon MD [employer] fellow Date of interpretation: 07/16/2023 I personally interpreted the study on 07/16/[address] Mckeon's fellow note as written. ? Marion Dunn MD [facility] Urinalysis w/o Specific Japxbsp6428-09-57 16:15:00* Test Item Value Reference Range Interpretation Comme [...] = 3257) Negative Negative - Negati ve [facility] TexasSCANNED LAB EFOCLSP8238-82-95 17:03:43Ordered by an unspecified provider.[facility] LAB RESULTS 2023-06-19 17:02:44Ordered by an unspecified provider.[facility] ([facility]2023-06-04 16:44:16* Test Item Value Reference Range Interpretation Comme nts BETA HCG (test code = 4091785630) 605814.00 See_Comment [Automated messa ge] The system which generated this result transmitted reference range: Non- female and male patients: <5 mIU/mL. The reference range was not used to interpret this result as normal/abnormal. HAZEL (test code = HAZEL) Gestational Age ?Range (mIU/mL) 1-10 ?Weeks ?79-11722697-41 Weeks ?82651-26867394-27 Weeks ?2305-08037977-70 Weeks ?3319-806777 Biotin has been reported to cause a negative bias, interpret results relative to patient's use of biotin. [facility]. Metabolic Panel (99396)2023-06-04 16:01:29* Test Item Value Reference Range Interpretation Comme nts NA (test code = 0252122849) 134 mmol/L 135-145 L K (test code = 1209180915) 3.6 mmol/L 3.5-5.0 CL (test code = 5742107143) 106 mmol/L 98-108 CO2 TOTAL (test code = 5827378416) 20 mmol/L 23-31 L AGAP (test code = 9720136696) 8 2-16 BUN (test code = 4515917963) 7 mg/dL 7-23 GLUCOSE (test code = 5499590392) 128 mg/dL 70-110 H CREATININE (test code = 2160-0) 0.42 mg/dL 0.50-1.04 L TOTAL BILI (test code = 7591003266) 0.3 mg/dL 0.1-1.1 CALCIUM (test code = 2511666187) 9.4 mg/dL 8.6-10.6 T PROTEIN (test code = 0297309614) 6.9 g/dL 6.3-8.2 ALBUMIN (test code = 3980783045) 3.9 g/dL 3.5-5.0 ALK PHOS (test code = 5165826703) 51 U/L 34-122 ALTv (test code = 1742-6) 18 U/L 5-35 AST(SGOT) (test code = 9953498536) 20 U/L 13-40 eGFR (test code = 85286-4) 142.9 mL/min/1.73m2 CKD-EPI eGFR (2020). Assuming creatinine has been stable day-to-day for at least three months, the eGFR indicates Category G1 (>= 90 mL/min/1.73 m2) Lab Interpretation (test code = 07008-5) Abnormal [facility] TexasMagnesium2024-03-14 16:01:29* Test Item Value Reference Range Interpretation Comme nts MAGNESIUM (test code = 6136263514) 1.8 mg/dL 1.7-2.4 Lab Interpretation (test cod e = 69017-4) Normal [facility] with Gank7277-84-63 15:56:10* Test Item Value Reference Range Interpretation [...] 34.6 g/dL 31.6-35.1 RDW-SD (test code = 02100-8) 41.6 fL 39.0-49.9 RDW-CV (test code = 788-0) 13.5 % 12.0-15.5 PLT (test code = 777-3) 281 166-358 MPV (test code = 19643-1) 9.1 fL 9.5-12.9 L NRBC/100 WBC (test code = 2536620052) 0.0 0.0-10.0 NRBC x10^3 (test code = 1961043760) See_Comment [Automated messa ge] The system which generated this result transmitted reference range: 10*3/?L. The reference range was not used to interpret this result as normal/abnormal. GRAN MAT (NEUT) % (test code = 770-8) 70.1 % IMM GRAN % (test code = 0199016627) 0.50 % LYMPH % (test code = 736-9) 23.7 % MONO % (test code = 5905-5) 4.6 % EOS % (test code = 713-8) 0.9 % BASO % (test code = 706-2) 0.2 % GRAN MAT x10^3(ANC) (test code = [id number]) 6.87 10*3/uL 1.88-7.09 IMM GRAN x10^3 (test code = [id number]) 0.05 10*3/uL 0.00-0.06 LYMPH x10^3 (test code = 731-0) 2.32 10*3/uL 1.32-3.29 MONO x10^3 (test code = 742-7) 0.45 10*3/uL 0.33-0.92 EOS x10^3 (test code = 711-2) 0.09 10*3/uL 0.03-0.39 BASO x10^3 (test code = 704-7) 0.01-0.07 Lab Interpretation (test code = 49589-2) Abnormal [facility] Urinalysis w/o Specific [id number] 13:56:00* Test Item Value Reference Range Interpretation [...] = 3257) negative Negative - Negati ve [facility] Urinalysis w/o Specific [id number] 13:56:00* Test Item Value Reference Range Interpretation [...] = 3257) negative Negative - [facility]ati ve [facility] FIRST TRIMESTER LESS THAN 14 [id number] 23:10:00PELVIC ULTRASOUND Indication: Vaginal bleeding asses viability Technique: Real time canrey-scale and color ultrasound images of the pelviswere obtained with a transabdominal approach. Color and spectral Dopplerwas performed. Images were saved for the patient's medical record. Comparison: February RL: Ordering Clinician: GUI ALY Technical Quality: Adequate Findings: Uterus: The uterus is anteverted in position measuring 8.4 x 6.1 x 7.4 cm. Endometrium/Contents: Fundal intrauterine with a gestational sac3.6 cm, 9 weeks 5 days. [place]-rump length 2.0 cm corresponding with 8 weeksand 5 days. heart rate 176 bpm. Yolk sac 0.3 cm. Subjectively normalfluid content of the gestational sac. No adjacent hemorrhage. Right Adnexa: Right ovary not visualized. Left Adnexa: Left ovary not visualized. Additional Findings: No free fluid is in the cul-de-sac.[facility] Urinalysis w/o Specific [id number] 16:46:00* Test Item Value Reference Range Interpretation [...] = 3257) n/a Negative - Negati ve [facility] Urinalysis w/o Specific [id number] 16:46:00* Test Item Value Reference Range Interpretation [...] = 3257) n/a Negative - Negati ve [facility] [id number] 20:49:00* Test Item Value Reference Range Interpretation Comme nts POCT PREG (test code = 1605) Positive On board controls acceptable with C Line (test code = 3574) Yes POCT PREG LOT # (test code = 3575) POCT PREG TEST DATE ( test code = 3576) [facility] Urinalysis w/o Specific [id number] 20:49:00* Test Item Value Reference Range Interpretation [...] = 3257) Negative Negative - Negati ve [facility] [id number] 20:49:00* Test Item Value Reference Range Interpretation Comme nts POCT PREG (test code = 1605) Positive On board controls acceptable with C Line (test code = 3574) Yes POCT PREG LOT # (test code = 3575) POCT PREG TEST DATE ( test code = 3576) [facility] Urinalysis w/o Specific [id number] 20:49:00* Test Item Value Reference Range Interpretation [...] = 3257) Negative Negative - Negati ve [facility] MOLECULAR [id number] 16:32:49* Test Item Value Reference Range Interpretation Comme nts POCT Molecular Strep (test c ode = 64258-8) Negative Negative Lab Interpretation (test cod e = 75471-3) Normal [facility] URINALYSIS W/O SPECIFIC [id number] 20:36:00* Test Item Value Reference Range Interpretation [...] = 3257) negative Negative - Negati ve [facility] URINALYSIS W/O SPECIFIC [id number] 20:36:00* Test Item Value Reference Range Interpretation [...] = 3257) negative Negative - Negati ve [facility] [id number] 15:01:00* Test Item Value Reference Range Interpretation Comme nts POCT PREG (test code = 1605) Negative On board controls acceptable with C Line (test code = 3574) Yes POCT PREG LOT # (test code = 3575) POCT PREG TEST DATE ( test code = 3576) [facility] [id number] 15:01:00* Test Item Value Reference Range Interpretation Comme nts POCT PREG (test code = 1605) Negative On board controls acceptable with C Line (test code = 3574) Yes POCT PREG LOT # (test code = 3575) POCT PREG TEST DATE ( test code = 3576) [facility] [id number] 15:01:00* Test Item Value Reference Range Interpretation Comme nts POCT PREG (test code = 1605) Negative On board controls acceptable with C Line (test code = 3574) Yes POCT PREG LOT # (test code = 3575) POCT PREG TEST DATE ( test code = 3576) [facility] 02:46:43* Test Item Value Reference Range Interpretation Comme nts ALCOHOL (test code = 6933830568) <10 mg/dL HAZEL (test code = HAZEL) <10 [id number] Toxic>100 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 METABOLIC PANEL (30919)2021-01-06 02:40:21* Test Item Value Reference Range Interpretation Comme nts NA (test code = 2629733458) 139 mmol/L 135-145 K (test code = 4577650138) 3.8 mmol/L 3.5-5.0 CL (test code = 5544341798) 114 mmol/L 98-108 H CO2 TOTAL (test code = 8082561532) 20 mmol/L 23-31 L AGAP (test code = 8326463324) 2-16 BUN (test code = 1501592014) 13 mg/dL 7-23 GLUCOSE (test code = 9173016191) 86 mg/dL 70-110 CREATININE (test code = 7924082187) 0.53 mg/dL 0.50-1.04 TOTAL BILI (test code = 9613368155) 0.4 mg/dL 0.1-1.1 CALCIUM (test code = 4359130147) 7.8 mg/dL 8.6-10.6 L T PROTEIN (test code = 4591607129) 5.6 g/dL 6.3-8.2 L ALBUMIN (test code = 6980183962) 3.1 g/dL 3.5-5.0 L ALK PHOS (test code = 3114894436) 36 U/L 34-122 ALTv (test code = 1742-6) 14 U/L 5-35 AST(SGOT) (test code = 0436557996) 26 U/L 13-40 eGFR (test code = 3083185742) mL/min/1.73m2 HAZEL (test code = HAZEL) Association [...] imaging tests). Lab Interpretation (test code = 32563-1) Abnormal [facility] Whole [id number] 02:30:07* Test Item Value Reference Range Interpretation Comme nts LACTIC ACID (test code = 2891791855) 1.53 mmol/L 0.50-2.20 Lab Interpretation (test cod e = 13622-3) Normal [facility] WITH [id number] 02:20:01* Test Item Value Reference Range Interpretation Comme nts WBC (test code = 6690-2) See_Comment [Automated [place]] The system which generated this result transmitted reference range: 4.50 - 13.50 10*3/?L. The reference range was not used to interpret this result as normal/abnormal. RBC (test code = 789-8) See_Comment [Automated [place]] The system which generated this result transmitted [...] g/dL 32.0-36.0 L RDW-SD (test code = 23150-7) 45.0 fL 38.5-49.0 RDW-CV (test code = 788-0) 14.8 % 11.5-14.0 H PLT (test code = 777-3) See_Comment [Automated [place]] The system which generated this result transmitted reference range: 135 - 361 10*3/?L. The reference range was not used to interpret this result as normal/abnormal. MPV (test code = 13065-4) 10.5 fL 9.4-13.3 NRBC/100 WBC (test code = 9501670152) See_Comment [Automated me ssage] The system which generated this result transmitted reference range: 0.0 - 10.0 /100 WBCs. The reference range was not used to interpret this result as normal/abnormal. NRBC x10^3 (test code = 7603806642) <0.01 See_Comment [Automated messa ge] The system which generated this result transmitted reference range: 10*3/?L. The reference range was not used to interpret this result as normal/abnormal. GRAN MAT (NEUT) % (test code = 770-8) 45.6 % IMM GRAN % (test code = 0455514511) 0.20 % LYMPH % (test code = 736-9) 42.0 % MONO % (test code = 5905-5) 9.9 % EOS % (test code = 713-8) 2.1 % BASO % (test code = 706-2) 0.2 % GRAN MAT x10^3(ANC) (test code = 4432721528) 3.68 10*3/uL 1.50-10.30 IMM GRAN x10^3 (test code = 0875309083) <0.03 0.00-0.06 LYMPH x10^3 (test code = 731-0) 3.39 10*3/uL 0.70-7.40 MONO x10^3 (test code = 742-7) 0.80 10*3/uL 0.00-0.50 H EOS x10^3 (test code = 711-2) 0.17 10*3/uL 0.00-0.40 BASO x10^3 (test code = 704-7) <0.03 0.00-0.10 Lab Interpretation (test code = 58728-7) Abnormal [facility] RAPID STREP SCREEN FOR GROUP [id number] 19:24:00* Test Item Value Reference Range Interpretation Comme nts POCT GP A STREP (test code = 27432-3) negative Negative - Negative [facility] RAPID STREP SCREEN FOR GROUP [id number] 19:24:00* Test Item Value Reference Range Interpretation Comme nts POCT GP A STREP (test code = 20631-5) negative Negative - Negative [facility] [id number] 00:00:00* Test Item Value Reference Range Interpretation Comme nts IMP (test code = IMP) Electroencephalogram Report NAME: Romy BernsteinAGE: 19 Year(s) 6 Month(s)DATE OF EE10/12/2019PROCEDURE: ?EEG ? ? EEG#: [id number] PHYSICIAN: Dalia Escalante MDLOCATION: [facility] [place] [facility] DIAGNOSIS: Seizure vs PNESPERTINENT MEDICATIONS: ?N/A [...] time: 44m39s Lab Interpretation (test code = 96959-5) Normal [facility] ULTRASOUND BREAST LIMITED [id number] 13:32:53HISTORY: 2 palpable masses in the left [...] with the patient and hermother.ACR classification: [facility] II.[facility] 2019-08-04 19:35:00* Test [...] = 3257) 4+ Negative - Negati ve [facility]CIFIC [id number] 19:35:00* Test Item Value Reference Range Interpretation [...] = 3257) 4+ Negative - Negati ve [facility] [id number] 18:57:00* Test Item Value Reference Range Interpretation Comme nts POCT PREG (test code = 1605) Negative On board controls acceptable with C Line (test code = 3574) Yes POCT PREG LOT # (test code = 3575) POCT PREG TEST DATE ( test code = 3576) [facility] [id number] 18:57:00* Test Item Value Reference Range Interpretation Comme nts POCT PREG (test code = 1605) Negative On board controls acceptable with C Line (test code = 3574) Yes POCT PREG LOT # (test code = 3575) POCT PREG TEST DATE ( test code = 3576) [facility] [id number] 22:13:00* Test Item Value Reference Range Interpretation Comme nts URINE CULTURE (test code = 630-4) > 100,000 CFU/mL mixed aerobic organisms - suggests endogenous microbial contamination [facility] [id number] 22:13:00* Test Item Value Reference Range Interpretation Comme nts URINE CULTURE (test code = 630-4) > 100,000 CFU/mL mixed aerobic organisms - suggests endogenous microbial contamination [facility] History and Physical Notes Date/Time Note Provider Source 2023-12-02 18:09:21 TRIAGE HISTORY & PHYSICAL IDENTIFYING DATA Romy Bernstein is 23 year old, /White, 38w0d, female with SHANTEL 12/16/2023, by Last Menstrual Period. : 2002 Primary Care Physician: PATIENT DOES NOT HAVE A PCP CHIEF COMPLAINT Sent for delivery due to NRNST at term HISTORY OF PRESENT ILLNESS Romy Bernstein is a 23 year old female @ 38w0d +FM. No VB, LOF. + CTX. No pre-eclampsia sx or other complaints. PAST OBSTETRIC HISTORY OB History Para Term AB Living 1 0 0 0 0 0 SAB IAB Ectopic Multiple Live Births 0 0 0 0 0 # Outcome Date GA Lbr Sean/2nd Weight Sex Delivery Anes PTL Lv 1 Current PAST MEDICAL HISTORY Problem list: Patient Active Problem List Diagnosis Date Noted Encounter for induction of labor 12/02/2023 38 weeks gestation of 12/02/2023 Herpes simplex type 1 antibody positive 12/02/2023 Non-reactive NST (non-stress test) 12/02/2023 Uterine contractions during 11/11/2023 Nausea and vomiting during prior to 22 weeks gestation 06/04/2023 High-risk in third trimester 05/07/2023 Obesity peds (BMI >=95 percentile) 10/08/2018 Generalized epilepsy 10/08/2018 History of depression 10/07/2018 Weight gain 10/07/2018 Migraine without aura and without status migrainosus, not intractable 03/30/2018 Family history of breast cancer 01/13/2018 Breast asymmetry in female 01/13/2018 Asthma Family history of familial hypercholesterolemia Operations: Past Surgical History: Procedure Laterality Date ADENOIDECTOMY TONSILLECTOMY Past Medical History: Diagnosis Date Allergic rhinitis Asthma Family history of familial hypercholesterolemia High risk sexual behavior Menorrhagia Mild episode of recurrent major depressive disorder 10/07/2018 Ovarian cyst 02/24/2017 Seizures 03/30/2018 Due to Fever / Strep CURRENT HEALTH STATUS Medications: Current Facility-Administered Medications Medication Dose Route Frequency Last Rate Last Admin carboprost (HEMABATE) injection 250 mcg 250 mcg Intramuscular Q2HPRN D5W-LR IV infusion 1,000 mL 1,000 mL IV Infusion TITRATE 125 mL/hr at 12/02/23 1153 1,000 mL at 12/02/23 1153 FENTanyl (PF) (SUBLIMAZE) injection 100 mcg 100 mcg Slow IV Push Q1HPRN lactated ringers IV infusion 500 mL 500 mL IV Infusion PRN - SEE INSTRUCTIONS lidocaine 1% (PF) (XYLOCAINE) injection 0.3 mL 0.3 mL Infiltration PRN - SEE INSTRUCTIONS lidocaine 1% (XYLOCAINE) 10 mg/mL (1 %) injection 50 mL 50 mL Infiltration PRN - SEE INSTRUCTIONS methylergonovine (METHERGINE) injection 0.2 mg 0.2 mg Intramuscular Q4HPRN miSOPROStoL (CYTOTEC) tablet 200 mcg 200 mcg Rectal PRN oxytocin (PITOCIN) 30 units in NS 500 mL IV infusion 600 mL/hr IV Infusion PRN oxytocin (PITOCIN) 30 units in NS 500 mL IV infusion 2-40 maría-units/min IV Infusion TITRATE 4 mL/hr at 12/02/23 1601 4 maría-units/min at 12/02/23 1601 proMETHazine (PHENERGAN) 25 mg in NS 50 mL IV piggyback (CNR) 25 mg IV Piggyback Q6HPRN sodium citrate-citric acid (BICITRA) 500-334 mg/5 mL solution 30 mL 30 mL Oral PRE-PROCEDURE ONCE terbutaline (BRETHINE) injection 0.25 mg 0.25 mg Subcutaneous PRN tranexamic acid (CYKLOKAPRON) 1,000 mg in NaCl 0.9% (NS) 250 mL piggyback 1,000 mg IV Piggyback PRN Allergies and drug reactions: Solifenacin, Keppra [levetiracetam], and Vesicare [solifenacin succinate] HOME MEDICATIONS Medications Prior to Admission Medication Sig Dispense Refill Last Dose ondansetron 4 mg disintegrating tablet Take 1 tablet by mouth every 8 (eight) hours as needed for Nausea and Vomiting (N/V). 12 tablet 0 Not Taking valACYclovir (VALTREX) 500 mg tablet Take 1 tablet by mouth in the morning for 32 days. 32 tablet 0 Taking metoclopramide HCl 10 mg tablet Take 1 tablet by mouth every 6 (six) hours as needed for Nausea and Vomiting (N/V). 30 tablet 0 Not Taking levETIRAcetam 500 mg 24 hr tablet Take 4 tabs once a day in the EVENING 120 tablet 2 Not Taking PNV no.95/ferrous fum/folic ac ( ORAL) Take by mouth. Taking Lactobacillus acidophilus (PROBIOTIC ORAL) Take by mouth. Not Taking SOCIAL HISTORY Tobacco History: Social History Tobacco Use Smoking Status Never Passive exposure: Yes Smokeless Tobacco Never Drug History: Social History Substance and Sexual Activity Drug Use No Alcohol History: Social History Substance and Sexual Activity Alcohol Use No FAMILY HISTORY Family History Problem Relation Age of Onset Psychiatry Mother Depression & Bipolar Diabetes Mother Thyroid Mother hypothyroid Neurological Mother migraines, generalized seizures began as an adult per mother, record indicate pseudoseizure. Thyroid Maternal Aunt hyperthyroi Diabetes Maternal Grandmother Thyroid Maternal Grandmother hypothy Cancer Other liver ca- unclear if mets or new primary Colon Cancer Other Ovarian Cancer Other Breast Cancer Other 43 bilateral breast ca Uterine Cancer Other 40 Uterine Cancer Other 46 Breast Cancer Other 45 Breast Cancer Other diagnosed in her 40's Ovarian Cancer Other diagnosed in her 40's Cancer Other bladder ca, 40's Stomach Cancer Other diagnosed in her early 50's Breast Cancer Other diagnosed in her early 50's Uterine Cancer Other diagnosed in her 40's Breast Cancer Other diagnosed in her 30's Cancer Other pancreatic ca, 40's Stomach Cancer Other diagnosed in her 40's Breast Cancer Other diagnosed in her 40's Breast Cancer Other diagnosed in her 20's Cancer Other brain ca, 40's-mets to lungs Stomach Cancer Other diagnosed in his 60's Stomach Cancer Other diagnosed <50 Breast Cancer Other diagnosed <50 REVIEW OF SYSTEMS General: negative Constitutional: negative Eyes: negative ENT/Mouth: negative Cardiovascular: negative Respiratory: negative Gastrointestinal:negative Genitourinary: see HPI Musculoskeletal: negative Skin/breast: negative Neurological: negative Psychiatric: negative Endocrine: negative Hemat/Lymph: negative Allergic/Immuno:none VITAL SIGNS BP: (112-131)/(63-81) Temp: [36.9 ?C (98.4 ?F)-37 ?C (98.6 ?F)] Temp source: Temporal Artery (12/01 1600) Pulse: [77-99] Resp: [18-20] SpO2: [99 %-100 %] Height: [160 cm (5' 2.99")-160 cm (5' 3")] Weight: [98 kg (216 lb)-98.1 kg (216 lb 3.2 oz)] BMI (calculated): [38.27-38.3] PHYSICAL EXAMINATIONS Gen: alert and oriented, well appearing, no distress CV: RRR, normal S1/S2, no m/r/g Resp: normal work of breathing, lungs CTAB Abd: gravid, soft, NTTP Ext: no calf tenderness or edema : SVE 50/high, small amount of blood noted REVIEW OF LABORATORY, PATHOLOGY, AND RADIOLOGY DATA Lab results: Type & Screen HIV Hep B Syphilis Chlamydia ABO & RH Date Value Ref Range Status 12/02/2023 A POSITIVE Final No results found for: "HIVMULTIPLEX" No components found for: "HBSHBSAG" No results found for: "SYPIGG" C. trachomatis Nucleic Acid Date Value Ref Range Status 11/11/2023 Negative Negative Final IAT Date Value Ref Range Status 12/02/2023 Negative Final Varicella Rubella Glucose Group B Strep CBC VZV IgG antibody Date Value Ref Range Status 06/05/2023 Positive Negative Final Rubella screen IgG Date Value Ref Range Status 06/05/2023 Negative Negative Final GLUC 1 HR Date Value Ref Range Status 09/10/2023 123 120 - 170 mg/dL Final No results found for: "CGBS" HGB Date Value Ref Range Status 12/02/2023 10.6 (L) 11.6 - 15.0 g/dL Final HCT Date Value Ref Range Status 12/02/2023 31.7 (L) 35.7 - 45.2 % Final PLT Date Value Ref Range Status 12/02/2023 250 166 - 358 10*3/?L Final Active Hospital Problems Diagnosis Date Noted Encounter for induction of labor 12/02/2023 38 weeks gestation of 12/02/2023 Herpes simplex type 1 antibody positive 12/02/2023 Non-reactive NST (non-stress test) 12/02/2023 Generalized epilepsy 10/08/2018 Saw neurology 2018 - per neurology note [...] and CT head were done in March unremarkable. Semiology is well consistent with generalized seizures- recurrent. She is never been on seizures medications in the past. She has unclear history of possible bipolar 6 years ago. She also seems to have chronic daily headache. Patient and mother agreeable to start AED Zonisamide 200 mg daily that may help with headache as well. If headache persists will reevaluate next visit." F/u 10/13/2018 History of depression 10/07/2018 Migraine without aura and without status migrainosus, not intractable 03/30/2018 Resolved Hospital Problems No resolved problems to display. Present on Admission: Encounter for induction of labor 38 weeks gestation of Generalized epilepsy Migraine without aura and without status migrainosus, not intractable Herpes simplex type 1 antibody positive History of depression Non-reactive NST (non-stress test) Placenta Accreta Screening Prior ? : No Prior Uterine Surgery?: No Placenta low lying/previa in current ? : No Screening outcome: A positive screening outcome indicates a history of prior delivery or prior uterine surgery, AND the presence of either a placenta low lying/previa or ultrasound suspicion of PASD in the current . Negative screening. ASSESSMENT AND PLAN Romy Bernstein is a 23 year old female @ 38w0d here for induction due to NRNST and vaginal bleeding at term. Induction - FB in placed. Low dose pitocin overnight - Cephalic presentation confirmed - GBS neg - Chip EFW < 4500 grams Vaginal bleeding - no active bleeding at this time - strip overall reassuring - will continue to monitor History of seizure - patient saw neurology on 06/15/23. - Last episode was in May 2023 - Patient states that she has self discontinued Keppra~ July 2023. -Normal EEG on 07/16/23 History of depression -Was diagnosed at age 16. States that she was on medication until age 17. Saw a counselor/therapist until age 18. HSV I IgG positive - on Suppression - denies prodromal symptoms/lesions - no lesions on exam PVT of Dr. Whitmore, please see OB Summary for more details Alexandria Whitmore MD 12/02/2023 6:11 PM [facility] Procedure Notes Date/Time Note Provider Source 2023-12-03 06:47:23 Associated Order(s): Central Neuraxial Block Central Neuraxial Block Date/Time: 12/03/2023 5:50 AM Performed by: Patito Smith MD Authorized by: Patito Smith MD Patient Location: OR End Time: 12/03/2023 6:00 AM Reason for Block: OB request, Surgical anesthesia and Patient request Staff: Anesthesiologist: Patito Smith MD Performed by: anesthesiologist Preanesthetic Checklist: patient identified, IV checked, risks and benefits explained, monitors and equipment checked, timeout performed, ob surgical consent/approval, pre-op evaluation, surgical consent, site marked, anesthesia consent, OB/surgical consent verified, ob/surgical consent approval and ob/surgical consent verified Procedure: Type of Neuraxial: Single Shot and Spinal Sterility Prep cap, drape, gloves, hand hygiene and mask Sedation Level no sedation Patient Position: sitting Prep: Betadine and patient draped Monitoring: heart rate, laboratory monitor / EKG, continuous pulse ox, heart rate / toco, NIBP and ETCO2 Location: lumbar (1-5) Lumbar: L3-L4 Approach: midline Technique: single shot Guidance with: landmark technique} Epidural/Spinal Touchet and/or Catheter: Epidural/Spinal Kit: BBraun : Pencan. Needle Gauge: 25 G Needle Length: 3.5 in (8.89 cm) Number of Attempts: 1 Test Dose: no test dose Assessment: Sensory Level: above T10 Block Outcome: successful block, appropriate motor block, appropriate sensory block, no apparent complications, pain improved, pain relieved, patient comfortable, patient satisfied, patient tolerated procedure well and positive pain relief Events: cerebrospinal fluid and block blood pressure change Procedure Assessment: patient tolerated procedure well with no complications Notes: Smooth and atraumatic, (+) Local, (+) STF, attempt x1, barbitage x1, no apparent complications. AN-ANESTHESIOLOGY ANESTHESIOLOGIST [facility] 2023-12-02 18:15:20 Procedure(s): INSERT CERVICAL DILATOR Pre-Procedure Diagnose(s): 38 weeks gestation of ; NST (non-stress test) nonreactive; Vaginal bleeding during , antepartum Post-Procedure Diagnose(s): 38 weeks gestation of ; NST (non-stress test) nonreactive; Vaginal bleeding during , antepartum Rice bulb inserted in a sterile manner and inflated with 60 cc of normal saline without complications. Patient tolerated the procedure well. Alexandria Whitmore MD #[id number] 12/02/2023 6:16 PM [facility] Notes Date/Time Note Provider Source 2024-07-08 16:06:48 Mychart message sent. ALENA WELLS RN 07/08/2024 4:06 PM Alena Wells RN [facility] 2024-07-08 15:18:29 Pt would like to know if she can request an order/ lab for STD testing Appt w/ Dr. whitmore on 07/13 Flores Stein [facility] 2024-06-30 15:54:01 2 letters sent for office visit on 06/15 and ultrasound on 06/28. Shelly Conteh RN 06/30/2024 3:54 PM [facility] 2024-06-30 15:09:45 Pt called dion Whitmore to provide a return to work letter w/no limitations. Pt would like letter yo be uploaded to her [employer]. Ania Patel [facility] 2024-05-05 13:45:00 Images from the original note were not included. Venipuncture collection performed by clean technique on the left anticubitus. Total of 1 attempts were made. Slight pressure and a bandage/dressing were applied to the site(s). The patient experienced no complications. The following specimens were processed according to instructions and [facility] per lab order on 05/05/2024 : LT BLUE SST 3 RED LAV 1 PPT DK GREEN (LiHep) DK GREEN (SodH) CARNEY DK BLUE (K2) DK BLUE (S) ACD Blood Culture NIPT/NTD OW TRIMMER APPRENTICE [facility] 2024-04-27 16:33:06 Spoke to patient, verified name and . Scheduled an appointment with Dr. Nunez for referral request. Tanesha Puentes MA 04/27/2024 4:34 PM OW TRIMMER APPRENTICE Tanesha Puentes MA [facility] 2024-04-27 14:56:03 Romy Bernstein is a 24 year old female and is calling asking to speak with clinic about getting a referral for a plastic maker. Wanted to speak with the provider or nurse first. OW TRIMMER APPRENTICE Richa Wells [facility] 2024-04-19 15:09:42 Forms signed and faxed to [facility]. OW TRIMMER APPRENTICE Yuki Harrison RN [facility] 2024-04-19 15:05:57 Form prefilled and placed in providers folder for signature. OW TRIMMER APPRENTICE Yuki Harrison RN [facility] 2024-04-19 14:45:13 Images from the original note were not included. Forms placed in nurse folder. EEN Colvin [facility] 2024-04-05 15:00:00 Images from the original note were not included. Venipuncture collection performed by clean technique on the right anticubitus. Total of 1 attempts were made. Slight pressure and a bandage/dressing were applied to the site(s). The patient experienced no complications. The following specimens were processed according to instructions and sent to [facility] per lab order on 04/05/2024: LT BLUE SST 3 RED 1 LAV PPT DK GREEN (LiHep) DK GREEN (SodH) CARNEY DK BLUE (K2) DK BLUE (S) ACD Blood Culture NIPT/NTD [facility] 2024-03-17 14:37:28 Received title 19 via fax from [employer] for breast pump. Patient delivered 12/03/23 and completed follow up. Title 19 signed and faxed back Shelly Conteh RN 03/17/2024 2:[address] [facility] 2024-02-29 09:45:00 Images from the original note were not included. Venipuncture collection performed by clean technique on the right anticubitus. Total of 1 attempts were made. Slight pressure and a bandage/dressing were applied to the site(s). The patient experienced no complications. The following specimens were processed according to instructions and sent to [facility] per lab order on 02/29/2024: LT BLUE SST 1 RED LAV 2 PPT DK GREEN (LiHep) DK GREEN (SodH) CARNEY DK BLUE (K2) DK BLUE (S) ACD Blood Culture NIPT/NTD Patient has been identified by and name and was provided with cup, antiseptic towelette, and clean catch instructions. 2 urine specimen(s) sent. Unpreserved 2 Urine Culture Aptima tube Other urine [facility] 2024-02-22 15:10:35 Fax received from [employer] for breast pump, milk storage bags. Delivered via C section on 12/03/23. Order signed and faxed back. Fax received from [employer] for support belt, maternity compression socks, and recovery support garment. Order denied since delivery was 12/03/23. Shelly Conteh RN 02/22/2024 3:[address] [facility] 2024-02-19 12:15:29 Noted. ALENA WELLS RN 02/19/2024 12:15 PM OW TRIMMER APPRENTICE Alena Wells RN [facility] 2024-02-19 10:06:25 Images from the original note were not included. Medical equipment request faxed, leaving in fax folder saving under pts Mrn to be printed OW TRIMMER APPRENTICE Hali Casanova [facility] 2024-01-04 13:00:00 Images from the original note were not included. Venipuncture collection performed by clean technique on the left anticubitus. Total of 1 attempts were made. Slight pressure and a bandage/dressing were applied to the site(s). The patient experienced no complications. The following specimens were processed according to instructions and sent to [facility] laboratories per lab order on 01/04/2024 : LT BLUE SST 1 RED LAV 1 PPT DK GREEN (LiHep) DK GREEN (SodH) CARNEY DK BLUE (K2) DK BLUE (S) ACD Blood Culture NIPT/NTD [facility] 2024-01-04 11:00:00 Addended by: ALEXANDRIA WHITMORE MD on: 01/04/2024 07:29 PM Modules accepted: Orders, Level of Service [facility] 2023-12-09 03:39:27 Pt given printed and verbal discharge instructions regarding abdominal pain, Pt verbalized understanding of instructions, pt awake alert oriented, resp reg unlabored, skin w/d, color appropriate for race, moves all ext well,pt encouraged to follow up with pcp Advised to seek medical attention for new/prolonged/worsening of symptoms, No adverse reaction to meds given in ER noted upon discharge PIV d'cd, dressing to site, catheter in tact. Awake, alert oriented, resp reg unlabored, skin w/d, pt leaving amb with steady gait, in no apparent distress, Ronald Zuniga RN [facility] 2023-12-08 21:52:58 Pt arrived ambulatory without assist. Pt had on 12/03/23 at [facility], Dr. Whitmore. Pt c/o temp 99.9F oral, right leg/foot swelling and increased pain in incision site. Pt has appointment with RISK INVESTIGATOR FLOOR NURSE tomorrow. Hayley Duval RN [facility] 2023-12-08 16:50:22 Returned patients call. Patient states she is having pain. She is s/p section on 12/03/2023. She is taking tylenol and ibuprofen around the clock. The pain is located above her belly button and above incision. She notices it mostly when standing up or sitting down. She reports she is not lifting heavier than her baby. She denies drainage from incision. She reports it hurts and kaba when she peed. She denies urgency and frequency. Patient is requesting to be seen in office. Appointment made for tomorrow 12/09/2023 with FLOOR NURSE. Shelly Conteh RN 12/08/2023 5:04 PM [facility] 2023-12-08 15:48:33 Romy Bernstein is a 23 year old female T de;livered baby last . She's experiencing abdominal pain, and she believes she might have a Uti. Please assist ariba Patel [facility] 2023-12-05 08:40:54 Addendum created 12/05/23 0840 by Patito Smith MD Attestation recorded in Intraprocedure, Intraprocedure Attestations deleted, Intraprocedure Attestations filed T [facility] 2023-12-04 07:30:00 Problem: Falls, Risk of Goal: Absence of falls Outcome: Progressing as expected Problem: Pain Goal: Control of pain at or below patient's documented comfort goal Outcome: Progressing as expected Goal: Reduction in pain sensation Outcome: Progressing as expected Problem: Discharge Planning Goal: Adequate for discharge Outcome: Progressing as expected Goal: Effective communication Outcome: Progressing as expected Problem: Infection Risk Goal: Absence of infection Outcome: Progressing as expected T Molly Morel RN [facility] 2023-12-03 19:08:20 Problem: Falls, Risk of Goal: Absence of falls Outcome: Progressing as expected Problem: Pain Goal: Control of pain at or below patient's documented comfort goal Outcome: Progressing as expected Goal: Reduction in pain sensation Outcome: Progressing as expected Problem: Discharge Planning Goal: Adequate for discharge Outcome: Progressing as expected Goal: Effective communication Outcome: Progressing as expected Problem: Infection Risk Goal: Absence of infection Outcome: Progressing as expected T Irene Marcial RN [facility] 2023-12-03 18:00:00 Problem: Falls, Risk of Goal: Absence of falls 12/03/2023 1817 by Molly Morel RN Outcome: Progressing as expected 12/03/2023 1300 by Molly Morel RN Outcome: Progressing as expected Problem: Intrapartum process (including labor pain) Goal: Absence of or reduction of complications of labor 12/03/2023 1301 by Molly Morel RN Outcome: Resolved 12/03/2023 1300 by Molly Morel RN Outcome: Progressing as expected Goal: Able to cope with pain 12/03/2023 1301 by Molly Morel RN Outcome: Resolved 12/03/2023 1300 by Molly Morel RN Outcome: Progressing as expected Goal: Adequate to move to next level of care 12/03/2023 1301 by Molly Morel RN Outcome: Resolved 12/03/2023 1300 by Molly Morel RN Outcome: Progressing as expected Goal: Reduction in pain sensation 12/03/2023 1301 by Molly Morel RN Outcome: Resolved 12/03/2023 1300 by Molly Morel RN Outcome: Progressing as expected Problem: Pain Goal: Control of pain at or below patient's documented comfort goal Outcome: Progressing as expected Goal: Reduction in pain sensation Outcome: Progressing as expected Problem: Discharge Planning Goal: Adequate for discharge Outcome: Progressing as expected Goal: Effective communication Outcome: Progressing as expected Problem: Infection Risk Goal: Absence of infection Outcome: Progressing as expected [facility] 2023-12-03 13:30:00 This note was copied from a baby's chart. Evaluation Situation Initial visit Background Baby girl is 7 hours old, born weighing 2890g. Gestational Age: 38w1d at INFANT FEEDING STATUS Exclusively MATERNAL STATUS Assessment, Recommendations, Education Assisted mom with positioning and asymmetrical latch technique in the cross cradle hold. Initially the baby was latched shallow, but after giving more neck and back support she was able to achieve a deeper latch. The baby suckled in coordinated bursts with audible swallows. Mom's nipple was rounded upon release. . Mom instructed on how to contact [facility] for assistance with feedings or to answer questions while in the hospital. Mom verbalized understanding. Assessment (most recent) Assessment - 12/03/23 1330 General Information Visit Initial Mom's age (years) 23 years Gestational age 38 weeks 1 Parity 1 Living Children 1 Feeding plan Breast Breastfeed previously No Used pump previously No Breast Pump Needs Delivery method Infant Oral Assessment Oral assessment New assessment Date of 12/03/23 Time of 0614 location Mother Baby Unit Chin Normal Palate assessment Normal Tongue assessment Normal Restricted tongue motion observed None Breast Assessment Breast Assessment Initial Symmetry Symmetrical Size L (D-DD) Shape Pendulous Nipple & Areola Assessment Left Areola Pliable Right Areola Pliable Left Nipple Intact;Everted Right Nipple Colostrum visible;Intact;Everted Literature Resources Resources Understanding Mother and Baby Care Education hunger cues;On-demand feeds at least 8 or more over 24 hours;Hand expression;Delay of pacifier/artificial nipples up to 4 weeks;Benefits of skin to skin contact;Signs of an effective latch;Infant stomach size;2nd day/growth spurt cluster feeds;Position changes;Burping Handouts given Nepali [facility] [employer] Observation Assist with latch Position left side Cradle;Infant latched effectively;Suckled in coordinated bursts;Audible swallows Interventions Placed skin to skin;Breast massage Mother demonstrated teach back of Positioning and latching infant at breast Follow up Follow up in hospital;Mom will call staff Recommended Feeding Plan Recommended feeding plan On-demand , 8-12 times in 24 hours not to exceed 6 hours between feeds OTHER $ SERVICES Initial DEANDRE Gomes, RN, IBCLC Jarad Brooks RN [facility] 2023-12-03 13:06:39 Care Plan updated Problem: Falls, Risk of Goal: Absence of falls Outcome: Progressing as expected Problem: Intrapartum process (including labor pain) Goal: Absence of or reduction of complications of labor 12/03/2023 1301 by Molly Morel RN Outcome: Resolved 12/03/2023 1300 by Molly Morel RN Outcome: Progressing as expected Goal: Able to cope with pain 12/03/2023 1301 by Molly Morel RN Outcome: Resolved 12/03/2023 1300 by Molly Morel RN Outcome: Progressing as expected Goal: Adequate to move to next level of care 12/03/2023 1301 by Molly Morel RN Outcome: Resolved 12/03/2023 1300 by Molly Morel RN Outcome: Progressing as expected Goal: Reduction in pain sensation 12/03/2023 1301 by Molly Morel RN Outcome: Resolved 12/03/2023 1300 by Molly Morel RN Outcome: Progressing as expected [facility] 2023-12-03 12:40:00 Problem: Intrapartum process (including labor pain) Goal: Absence of or reduction of complications of labor 12/03/2023 1301 by Molly Morel RN Outcome: Resolved 12/03/2023 1300 by Molly Morel RN Outcome: Progressing as expected Goal: Able to cope with pain 12/03/2023 1301 by Molly Morel RN Outcome: Resolved 12/03/2023 1300 by Molly Morel RN Outcome: Progressing as expected Goal: Adequate to move to next level of care 12/03/2023 1301 by Molly Morel RN Outcome: Resolved 12/03/2023 1300 by Molly Morel RN Outcome: Progressing as expected Goal: Reduction in pain sensation 12/03/2023 1301 by Molly Morel RN Outcome: Resolved 12/03/2023 1300 by Molly Morel RN Outcome: Progressing as expected [facility] 2023-12-03 10:34:50 Recieved fax from [employer]. Signed and faxed back. BP order. ALENA WELLS RN 12/03/2023 10:34 AM Alena Wells RN [facility] 2023-12-03 10:25:52 Patient: Romy Bernstein Procedure Summary Date: 12/03/23 Room / Location: [address] LABOR AND DELIVERY OR LOCATION Anesthesia Start: 547 Anesthesia Stop: 700 Procedure: SECTION (Abdomen) Diagnosis: (same as pre-op) Surgeons: Alexandria Whitmore MD Responsible Provider: Patito Smith MD Anesthesia Type: Spinal ASA Status: 2 Anesthesia Type: Spinal Last vitals BP 99/50 (12/03/23929) Temp Pulse 72 (12/03/23929) Resp SpO2 97 % (12/03/23929) There were no known notable events for this encounter. Anesthesia Post Evaluation Comments: Anesthesia Post Operative Faculty Note Date of service: 12/03/2023 Patient examined, patient awake. Patient participation in post anesthesia evaluation: Block resolving appropriately, but not fully resolved, as expected. Patient participated otherwise. Vital Signs: BP 99/50 | Pulse 72 | Temp 36.8 ?C (98.2 ?F) (Axillary) | Resp 20 | Ht 1.6 m (5' 2.99") | Wt 98 kg (216 lb) | LMP 03/11/2023 | SpO2 97% | Unknown | BMI 38.27 kg/m? Pain: Scale used: 0 - 10 Ratin Nausea and vomiting: Not present. Post operative/post procedure hydration status: Euvolemic. Post-operative course: Patient discharged from PACU according to criteria. Patient advised about fall precautions. Complications: No apparent complications Valeriy Yee MD 12/03/2023 10:26 AN-ANESTHESIOLOGY ANESTHESIOLOGIST [facility] 2023-12-03 06:57:24 Delivery Date: 12/03/2023 Delivery Time: 6:14 AM DELIVERY BY SECTION Date of Service: : 12/03/2023 at 6:14 AM Admitted for: induction at 38 wks due to non-reactive NST and vaginal bleeding at term, Primary Lower uterine tranverse section with no extension, no BTL, Pfannenstiel, Closed with suture, EBL 500 cc, No complications, Findings: None Delivery Summary [place] Sex: female Weight: 2890 g 1 Minute 5 Minute 10 Minute Totals: 8 9 Primary Indication: Romy Bernstein is a 23 year old female G1 @ 38w1d admitted for induction due to non-reactive NST and vaginal bleeding at term. Patient was started on Amp/Gent for suspected intra-amniotic infection due to isolated tachycardia. SVE 4 cm. Patient desired to proceed with an elective primary CD. The patient was taken to the operating room for a primary section. Procedures: Primary Lower uterine tranverse section with no extension Specimens Removed: Placenta Surgeon: Alexandria Whitmore MD Report: Prophylactic antibiotic, Amp/gent/clinda/azithromycin was given before patient was taken to OR. After arrival to the operating room patient was placed in the supine position with left lateral tilt after administration of spinal anesthesia. After spinal in place, prolonged bradycardia down to 70s noted. Splash prep done and CD proceeded emergently. Laparotomy A pfannenstiel incision was made through the anterior abdominal wall with #10 scalpel. The incision was extended sharply with the #10 scalpel through the subcutaneous tissue to the level of fascia. The fascia was entered sharply with a #10 scalpel (Pfannenstiel) in the midline and extended bluntly. The rectus muscles were in the midline bluntly with digits. The peritoneum was then entered bluntly. The peritoneal incision was then extended superiorly and inferiorly under direct visualization with care being taken to avoid bladder and bowel. No adhesions were noted. The peritoneal incision was enlarged bluntly by lateral traction from the surgeon's and accounting administrative assistant's hand. Delivery A bladder flap was developed by grasping with Panamanian forcep and enter with Metzenbaun scissor. Then sharp and blunt dissection with Metzenbaum scissor and fingers were performed. A low transverse hysterotomy was made then with #10 scalpel and extended laterally and cephalad with fingers in a low transverse fashion with Manu Devine technique with care being taken to avoid injury to the fetus. The amniotic (membranes) were then entered, and the amniotic fluid was noted to be clear . The head was delivered manually without aid of vaginal hand. The head was flexed and delivered through the hysterotomy incision in a non-traumatic fashion with aid of fundal pressure applied by the therapeutic recreation assistant surgeon . The body was delivered with traction on the head along with fundal pressure. After delivery of body-bulb suction was performed from oropharynx and nostril with removal of clear amniotic fluid. Fetus was delivered in cephalic presentation. With delivery the baby, no extension was noted.Delayed cord clamping was performed for 30-60 seconds. Placenta was delivered spontaneously with steady traction on cord and manual separation of placenta from uterine wall. Closure Uterine cavity was cleaned after placental delivery with lap sponge x 2. The hysterotomy was closed in one layer with stitches using 1-0 Monocryl with continuous locking stitches. Hemostasis was achieved as needed with electrocautery. The ovaries/tubes/uterine surface were evaluated. They were found to be normal. Rectus muscle was re-approximated with 2-0 Monocryl. Fascia was closed with running stitches using 0-Biosyn . Hemostasis was checked for and found to be adequate. The subcutaneous tissue was irrigated and hemostasis was achieved where needed with electrocautery. Subcutaneous layer was closed with plain gut. The skin was then closed with subcutaneous stitches using 3-0 Vicryl sutures. The incision was cleaned and covered with a compression bandage and the procedure considered to be complete at this time. Intraoperative Complications: None Uterotonics: 30 units of pitocin mixed in 500 cc of LR Disposition: The patient tolerated the procedure well. She was recovered in the Labor and Delivery Room with routine care in stable condition, with a contracted uterus and normal transvaginal bleeding. The was sent to Transition Nurs[facility]. The placenta was not sent to pathology. Alexandria Whitmore MD 12/03/2023 7:07 AM [facility] 2023-12-03 05:40:11 Name/ MRN / Age / Gender: Romy Bernstein, [id number] 23 year old female BMI: Estimated body mass index is 38.27 kg/m? as calculated from the following: Height as of this encounter: 1.6 m (5' 2.99"). Weight as of this encounter: 98 kg (216 lb). Allergies: Solifenacin, Keppra [levetiracetam], and Vesicare [solifenacin succinate] Last Vitals: BP Readings from Last 1 Encounters: 12/03/23 (!) 151/93 Pulse Readings from Last 1 Encounters: 12/03/23 105 SpO2 Readings from Last 1 Encounters: 12/03/23 100% Date of Surgery: 12/03/2023 Surgeon: Alexandria Whitmore MD Procedure: SECTION (Abdomen) OR Location: [facility] LABOR AND DELIVERY OR LOCATION Anesthesia Preop Eval (physical exam) Anesthesia Preop: [id number] NPO Status Verified Solid Food/Non-Clear Liquids: > 8 Hours Anesthesia History Anesthesia History Negative (-) Hx of anesthetic complications Previous Anesthetics/Airways Additional Comments: H/o tonsillectomy at approx 5yo - no issues Cardiovascular Negative Cardiac ROS Pulmonary (+) Asthma (pt denied, but h/o asthma per chart review) Neuro/Musculoskeletal (+) Seizures (h/o of siezure d/o, few months ago - told to increase dose of keppra, however patient self dc'd due to sedation side effects in the morning.) GI/Hepatic Negative GI/Hepatic ROS Hematology Negative Hematology ROS Comments: HGB (g/dL) Date Value 12/02/2023 10.6 (L) 12/02/23 1149 PLT 250 Renal Negative Renal ROS Skin Negative Skin ROS Endo/Other Negative Endo/Other ROS Other RISK INVESTIGATOR Negative RISK INVESTIGATOR ROS Pediatric Preoperative Medication Instructions Continue taking all prescribed medications except: RINA inhibitors, ARBs, diuretics, all oral diabetes medications Anticoagulant Therapy: Defer to surgeons Insulin: Take 1/2 dose the night prior to surgery. Hold on DOS. Phentermine: Alert [facility] anesthesiologist SGLT2 Inhibitors: "gliflozins" to be held for 3 days prior to elective surgeries GLP1 Agonosit: stop 7 days prior to surgery MAC Cases: Continue taking RINA inhibitors and ARBs ASA Classification ASA: 2 Labs: Chemistry 06/04/2023 CBC 12/02/2023 134 (L) 106 7 128 (H) 8.81 10.6 (L) 250 3.6 20 (L) 0.39 (L) 31.7 (L) eGFR: 145.5 Date: 12/02/2023 ANC: 6.30 Date: 12/02/2023 LFTs 06/04/2023 Coags AST: 20 AP: 51 Prot: 6.9 Ca: 9.4 PT: - Date: - ALT: 18 T Ángel: 0.3 Alb: 3.9 PTT: - Date: - PO4: - Date: - INR: - Date: - Cardiac Endocrine & other pBNP: - Date: - A1C: 5.4 Date: 06/05/2023 Trop I: - Date: - POCT A1C: - Date: - CK: - Date: - TSH: - Date: - CKMB: - Date: - FT4: - Date: - LDL: - Date: - Lact: - Date: - Procal: - Date: - Respiratory -|-|-|-|- D-dimer: - ABG Date: - Date: - Miscellaneous Type and Screen: A POSITIVE Antibody: Negative Date: 12/02/2023 POCT : Positive Date: 04/23/2023 Current Medications: No outpatient medications have been marked as taking for the 12/02/23 encounter (Hospital Encounter). Previous Surgeries: Past Surgical History: Procedure Laterality Date ADENOIDECTOMY INSERT CERVICAL DILATOR 12/02/2023 TONSILLECTOMY Anesthesia Physical Exam General no apparent distress and alert and oriented x 3 Neuro/Psych neurological Nonfocal Dental no notable dental hx Abdominal GI exam normal (+) abdomen soft, benign and gravid Airway Mallampati score:II Extremity Normal extremity Pulmonary pulmonary exam normal and bilateral clear to auscultation Other Cardiovascular cardiovascular exam normalRhythm:Regular Rate: Normal Anesthesia Plan ASA Status: 2 Plan discussed during pre-op evaluation: General, Epidural and Spinal Anesthetic plan on DOS: Spinal Anesthesia plan discussed with: 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 Post-Operative Analgesia: routine analgesia & antiemetics Recovery Plan: PACU and LDR Additional comments: [facility] [employer] 2023-12-03 01:20:54 Problem: Falls, Risk of Goal: Absence of falls Outcome: Progressing as expected Problem: Intrapartum process (including labor pain) Goal: Absence of or reduction of complications of labor Outcome: Progressing as expected Goal: Able to cope with pain Outcome: Progressing as expected Goal: Adequate to move to next level of care Outcome: Progressing as expected Goal: Reduction in pain sensation Outcome: Progressing as expected Yancy Peterson RN [facility] 2023-12-02 20:35:10 Problem: Falls, Risk of Goal: Absence of falls Outcome: Progressing as expected Problem: Intrapartum process (including labor pain) Goal: Absence of or reduction of complications of labor Outcome: Progressing as expected Goal: Able to cope with pain Outcome: Progressing as expected Goal: Adequate to move to next level of care Outcome: Progressing as expected Goal: Reduction in pain sensation Outcome: Progressing as expected Jil Ballard RN [facility] 2023-12-02 09:15:00 Age: [age] year old GA: 38w0d contractions -SVE 1/50/high with small amount of blood on glove heart tone 160s (163 and above) on Doppler. NST obtained. NST nonreactive. Baseline 150s, minimal variability, positive accelerations, no decelerations --> discussed with patient and will send to labor and delivery for delivery. History of seizure - patient saw neurology on 06/15/23. - Last episode was in May 2023 - Patient states that she has self discontinued Keppra~ July 2023. Patient no show to neurology appointment on 09/15/2023. Advised patient to discuss with neurology -Normal EEG on 07/16/23 History of depression -Was diagnosed at age 16. States that she was on medication until age 17. Saw a counselor/therapist until age 18. -EPDS 0 today. Denies SI/HI. -Will continue to monitor HSV I IgG positive - on Suppression GBS negative on 11/11/2023 To labor and delivery Follow-up in 4 to 6 weeks for visit [facility] 2023-11-27 20:00:58 Pt to ED CO swelling to BLE, pelvic cramping, and pelvic pressure starting today. Still feeling baby move. Denies any fluid leakage/vaginal discharge or bleeding. OB is Dr. Whitmore. Referred to ED via OB clinic earlier today but was unable to come in due to work. . Report to glenn LARKIN Radha Sagastume RN [facility] 2023-11-27 16:27:19 Name and verified. HX: Swelling bilateral extremities. Rt side is extremely swelling with redness and "lines". Rt foot purple. Denies warm to touch. Lt side is not swollen. Instructed pt to go to ER now to be evaluated. Verbalized understanding. ALENA WELLS RN 11/27/2023 4:30 PM Alena Wells RN [facility] 2023-11-27 16:15:25 Pt is experiencing swelling in her ankles and legs more on the right side than the left side. Katelynn Booth [facility] 2023-11-26 12:52:53 Recieved fax from [employer]. Signed and faxed back. Title 19- BP. ALENA WELLS RN 11/26/2023 12:53 PM Alena Wells RN [facility] 2023-11-25 16:00:00 Age: [age] year old GA: 37w0d ASSESSMENT: Romy Bernstein is a 23 year old at 37w0d who presents for routine visit. Patient Active Problem List Diagnosis Asthma Allergic rhinitis Family history of familial hypercholesterolemia Family history of breast cancer Breast asymmetry in female Migraine without aura and without status migrainosus, not intractable History of depression Weight gain Obesity peds (BMI >=95 percentile) Generalized epilepsy High-risk in third trimester Nausea and vomiting during prior to 22 weeks gestation uterine contractions PLAN 1. High-risk in third trimester 2. 37 weeks gestation of - POCT Urinalysis w/o Specific Vernal- negative glucose and protein 3. Generalized epilepsy Denies episodes since last visit 4. History of depression EPDS-0, will continue to monitor. 5. Obesity affecting in third trimester, unspecified obesity type Healthy diet and walking encouraged 6. Herpes simplex type 1 antibody positive On suppressive therapy. Induction at 39 weeks scheduled for 12/13 She verbalized understanding --All questions answered RTC with Dr. Whitmore in 1 week or prn Dahlia Lewis DNP, [employer]VISOR [employer] 11/25/2023 at 4:19 PM [facility] 2023-11-23 13:22:30 Pt given printed and verbal discharge instructions regarding viral URI with cough and acute cough, encouraged hydration, 1 Prescriptions sent. Pt verbalized understanding of instructions, pt awake alert oriented, resp reg unlabored, skin w/d, color appropriate for race, moves all ext well,pt encouraged to follow up with pcp Advised to seek medical attention for new/prolonged/worsening of symptoms, Symptoms improved. No adverse reaction to meds given in ER noted upon discharge Awake, alert oriented, resp reg unlabored, skin w/d, pt leaving amb with steady gait, in no apparent distress, Karly Lui RN [facility] 2023-11-23 10:37:16 Patient states "I was informed that someone I have been around has been positive for covid. I took two home test and there was a faint line that it was positive." Patient states that she will need a doctors note for work. Tariq Hernández RN [facility] 2023-11-16 21:06:35 Maybe having contractions that got more intense this evening. Pt is having clear drainage that started this AM. RISK INVESTIGATOR 35wks 5days G1 Report called to Sary in L&D Hayley Duval RN [facility] 2023-11-11 11:15:00 Images from the original note were not included. Venipuncture collection performed by clean technique on the right anticubitus. Total of 1 attempts were made. Slight pressure and a bandage/dressing were applied to the site(s). The patient experienced no complications. The following specimens were processed according to instructions and [facility] per lab order on 11/11/2023: LT BLUE SST RED LAV 1 PPT DK GREEN (LiHep) DK GREEN (SodH) CARNEY DK BLUE (K2) DK BLUE (S) ACD Blood Culture NIPT/NTD [facility] 2023-11-11 10:45:00 Age: [age] year old GA: 35w0d Her boyfriend recently had brain surgery and just got discharged home last night. So she has been stressed out lately. Irregular contractions -SVE closed/thick/high Tachycardic -Pulse 120s at rest. Denies chest pain or shortness of breath. Patient drank 1 bottle of water today. U dip with small ketones. -Offered patient to be sent to hospital for IV hydration versus p.o. hydration at home. Patient has to go to work and will work on drinking more. History of seizure - patient saw neurology on 06/15/23. - Last episode was in May 2023 - Patient states that she has self discontinued Keppra~ July 2023. Patient no show to neurology appointment on 09/15/2023. Advised patient to discuss with neurology -Normal EEG on 07/16/23 History of depression -Was diagnosed at age 16. States that she was on medication until age 17. Saw a counselor/therapist until age 18. -EPDS 0 today. Denies SI/HI. -Will continue to monitor HSV I IgG positive - Suppression ordered Desires induction at 39 weeks. Tentatively planned for 12/14/2023 unless clinically indicated otherwise. This reviews what Dr. Whitmore talked about at your 36 week talk: 1. Go to Labor and Delivery when your contractions are 5-7 minutes apart and you have been able to time them for an hour. If you live more than 30 minutes from the hospital, then go when they are 10 minutes apart and you have been able to time them for an hour. 2. BUT, there are 4 reasons to go to Labor and Delivery REGARDLESS of what else is happening, whether you are geovanna or not: 1. If your water breaks - - - it may be a gush or a constant trickle. If you are not sure, always come in to be checked. 2. Bleeding like your period. 3. If your baby's movements are less than 10 in an hour. If you are concerned this might be the case, drink a tall glass of cold fluids, lay down on your side on the couch or your bed and see how long it takes to note 10 movements - if less than 10, this needs to be evaluated immediately. 4. Contractions or Pain that is continuous. Normal labor contractions last only 45 seconds - 1 minute. Cephalic presentation GC/CT and GBS obtained, CBC ordered Zika precautions reviewed Contraception PP: Nexplanon Delivery consent signed today RTC in 1 wk for PN [facility] [employer] 2023-10-28 09:45:00 Age: [age] year old GA: 33w0d ASSESSMENT: Romy Bernstein is a 23 year old at 33w0d who presents for routine visit. Patient Active Problem List Diagnosis Asthma Allergic rhinitis Family history of familial hypercholesterolemia Family history of breast cancer Breast asymmetry in female Migraine without aura and without status migrainosus, not intractable History of depression Weight gain Obesity peds (BMI >=95 percentile) Generalized epilepsy High-risk in third trimester Nausea and vomiting during prior to 22 weeks gestation PLAN 1. High-risk in third trimester 2. 33 weeks gestation of - POCT Urinalysis w/o Specific Vernal- trace of protein, negative glucose 3. Low back pain, unspecified back pain laterality, unspecified chronicity, unspecified whether sciatica present Tylenol prn Supportive mgmt discussed. belt, table, back massage Urine for culture, will treat, if indicated 4. Other obesity affecting in third trimester Well controlled 5. Generalized epilepsy No episode since last visit 6. History of depression EPDS-0, will continue to monitor. 7. Herpes simplex type 1 antibody positive Denies sxs- will start suppressive therapy from 35-36 weeks unless clinically indicated -Reviewed with patient [facility] Labor precautions reviewed with patient 1. If your water breaks(gush or a constant trickle). 2. Bleeding like your period. 3. If your baby's movements are less than 10 in an hour. 4. Contractions or pain that is continuous. She verbalized understanding --All questions answered RTC with Dr. Whitmore in 2 weeks or prn Dahlia Lewis DNP, [employer]PERVISOR [employer] 10/28/2023 at 9:36 AM [facility] [employer] 2023-10-16 16:25:26 LA completed and faxed. Shelly Conteh RN 10/16/2023 4:25 PM [facility] 2023-10-14 11:15:00 Age: [age] year old GA: 31w0d Doing well without concerns today History of seizure - patient saw neurology on 06/15/23. - Last episode was in May 2023 - Patient states that she has self discontinued Keppra~ July 2023. Patient no show to neurology appointment on 09/15/2023. Advised patient to discuss with neurology -Normal EEG on 07/16/23 History of depression -Was diagnosed at age 16. States that she was on medication until age 17. Saw a counselor/therapist until age 18. -EPDS 0 today. Denies SI/HI. -Will continue to monitor HSV I IgG positive - Suppression at 36 wks unless clinically indicated otherwise Desires induction at 39 weeks. Tentatively planned for 12/14/2023 unless clinically indicated otherwise. Appropriate interval growth on 09/17/2023 ultrasound. EFW 2 pounds 2 ounces, 23rd percentile 28-week labs and serologies within normal limits 3rd trimester teaching done- reviewed S/S of PTL (contractions, leakage of fluid and Vaginal bleeding) and also Kick Counts. Also dicussed Brantley-Maxwell, pelvic and lower back pains- expectations and differenced with S/S of PTL She plans to breast fed. Breast pump prescription given today BC options reviewed- opted for possibly Nexplanon Cooker Sulfite: Dr. Erickson Encourage patient to bring in wishes if she has any. Follow-up in 2 weeks for visit with FLOOR NURSE Follow-up in 4 wks for PN with Haim [facility] 2023-10-09 13:31:50 Patient currently in L&D. Shelly Conteh RN 10/09/2023 1:32 PM [facility] 2023-10-09 12:49:25 Romy Bernstein is a 23 year old female c/o ctx since 2330 last night, states they are now 15 minutes apart, also c/o nausea with emesis x 3 today, no vaginal bleeding Having constant low abd cramping EDC 12/16/2023 Report to Mariella, states Ligia aware of pt coming per Dr. Whitmore Up via w/c to L&D Mela Squires RN [facility] 2023-10-09 12:00:22 Summary: Triage Pt is current 30 weeks and has been unable to keep anything down since 10/08/2023. No liquids or solid foods everything comes right back up. Pt states that movement is still the same. Pt stated at this moment her stomach is really hard a really bad pain in her lower abdomin as if she has to have a bowel movement. Informed patient that I will send this over to the nurse and she will contact her within the next 2 to 3 hours. Sayda Flores [facility] 2023-10-05 16:30:00 Age: [age] year old GA: 29w5d ASSESSMENT: Romy Bernstein is a 23 year old at 29w5d who presents for routine visit. Patient Active Problem List Diagnosis Asthma Allergic rhinitis Family history of familial hypercholesterolemia Family history of breast cancer Breast asymmetry in female Migraine without aura and without status migrainosus, not intractable History of depression Weight gain Obesity peds (BMI >=95 percentile) Generalized epilepsy High-risk in second trimester Nausea and vomiting during prior to 22 weeks gestation PLAN 1. High-risk in third trimester 2. 29 weeks gestation of - POCT Urinalysis w/o Specific Vernal- negative protein and glucose 3. History of depression EPDS- 1. Doing well, denies SI/HI 4. Generalized epilepsy No episode since last visit 5. Pelvic pressure in , antepartum, third trimester Discussed supportive mgmt, including belt 6. Other obesity affecting in third trimester Discussed current weight gain since , healthy diet and exercise 7. Herpes simplex type 1 antibody positive No outbreak, will start suppressive at 35-36 weeks unless clinically indicated 8. Need for Tdap vaccination - TDAP VACCINE, >10 YRS, IM 9. Anemia during in third trimester 3rd tri labs result reviewed- mild anemia, otherwise normal. 1 hr gtt-wnl Advised to start OTC iron supplement with breakfast, increase water intake to prevent constipation. [facility] 2023-10-05 10:15:55 Patient called and scheduled for today. Anamaria Moore [facility] 2023-09-29 16:07:12 Romy Bernstein is a 23 year old female calling to get her appt that was cx due to weather jarred for either Sunday 10/01 or Thursday 10/05. You may call the patient or her mom at [phone]. Thanks. Martha Parkinson [facility] 2023-09-14 12:15:35 Returned patients call. Patient wanting to know why her chart says "nonstress test and silent ultrasound and high risk ". Patient advised the non stress test was when she was on the monitors in labor and delivery, the silent ultrasound is also from that L&D visit. Patient advised 2 reasons she is considered high risk is BMI of 35 and seizure disorder in . Patient verbalized understanding. No other questions or concerns at this time. Shelly Conteh RN 09/14/2023 12:17 PM Shelly Conteh RN [facility] 2023-09-14 10:43:55 Pt. Has questions about test results Erika Mallory [facility] 2023-09-11 17:11:51 Dear [facility] office, Please assist patient to drink 2% milk in . If there is any questions call [phone] Laura Bender RN [facility] 2023-09-11 10:37:53 Patient to ED for burry vision, headache, and seeing spots. Called to Dr. Whitmore and they told her to go in to get evaluated. Patient is 26 weeks . No cramping or discharge reported. T Kaleb Rodrigez RN [facility] 2023-09-11 09:50:22 Spoke with patient. Patient reports seeing black spots in her vision, dizziness, headache not resolved by tylenol for 3-4 days. Patient reports nausea in the morning but denies vomiting. Patient reports decreased FM today. Patient advised to be seen in ER for complaints. Patient reports she has a ride to ER. Shelly Conteh RN 09/11/2023 9:55 AM Report called to Laura in labor and delivery. Shelly Conteh RN [facility] 2023-09-11 09:47:43 Patient is calling says she been having light headedness and seeing some black spots for days now. Also says she has not felt baby move today. Dana Davila [facility] 2023-09-10 08:15:00 Loaded pt w 50gm fruit punch glucola, no issues. Draw time: [id number] T [facility] 2023-09-10 08:15:00 Images from the original note were not included. Venipuncture collection performed by clean technique on the left anticubitus. Total of 1 attempts were made. Slight pressure and a bandage/dressing were applied to the site(s). The patient experienced no complications. The following specimens were processed according to instructions and sent to [facility] laboratories per lab order on 09/10/2023 : LT BLUE SST 2 RED 1 LAV 2 PPT DK GREEN (LiHep) DK GREEN (SodH) CARNEY DK BLUE (K2) DK BLUE (S) ACD Blood Culture NIPT/NTD T [facility] 2023-09-01 11:00:00 Age: [age] year old GA: 24w6d Doing well without concerns today History of seizure - patient saw neurology on 06/15/23. - Last episode was in May 2023 -Patient states that she has self discontinued Keppra about 1 month ago. Patient has follow-up neurology appointment on 09/15/2023. Advised patient to discuss with neurology -Normal EEG on 07/16/23 History of depression -Was diagnosed at age 16. States that she was on medication until age 17. Saw a counselor/therapist until age 18. -EPDS 1 today. Denies SI/HI. 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 FOB Horizon 03/03 negative MsAFP negative Anatomy scan done on 08/13/2023: The biometry was consistent with the dates provided No obvious malformations or markers of aneuploidy noted. The exam is limited by the position -->> follow-up ultrasound ordered 28-week labs and serologies ordered Follow-up in 4 weeks for visit with FLOOR NURSE Follow-up in 6 wks for PN with Whitmore [facility] 2023-08-10 11:38:10 Images from the original note were not included. Called patient per their provider's result note and patient verbalized understanding. Pt will have lab drawn in two weeks at [facility]. Pt will take all four pills in the evening due to it making her tired if she takes in the AM. Pt requested new refill as she will not have enough to accommodate the increase in dosing. Sent prescription to her [facility] pharmacy. Conchita Lopez MD P Neurology Nurse I tried to call this patient using the two phones available and had no response. She is currently and taking Keppra XR 500 mg - 2 tabs in the evening. However, the blood level of keppra is very low = 4, which places her of risk of seizures and complications to her baby. - Please advise patient to start taking keppra XR 500 mg in a total of 4 tabs (2000 mg) per day today (ideally, 2 in the morning and 2 in the evening, but if she does not tolerate, she can take all 4 tabs in the evening). - Please repeat the blood level of keppra after 2 weeks. Thank you. [facility] 2023-08-04 10:15:00 Loaded pt w 50gm fruit punch glucola, no issues. Draw time: 1109 T [facility] 2023-08-04 10:15:00 Images from the original note were not included. Only 1hr gtt per pt request Venipuncture collection performed by clean technique on the left anticubitus. Total of 1 attempts were made. Slight pressure and a bandage/dressing were applied to the site(s). The patient experienced no complications. The following specimens were processed according to instructions and sent to [facility] per lab order on 08/04/2023 : LT BLUE SST 1 RED LAV PPT DK GREEN (LiHep) DK GREEN (SodH) CARNEY DK BLUE (K2) DK BLUE (S) ACD Blood Culture NIPT/NTD T [facility] 2023-08-04 08:30:00 Age: [age] year old GA: 20w6d ASSESSMENT: Romy Bernstein is a 23 year old at 20w6d who presents for routine visit. Patient Active Problem List Diagnosis Asthma Allergic rhinitis Family history of familial hypercholesterolemia Family history of breast cancer Breast asymmetry in female Migraine without aura and without status migrainosus, not intractable History of depression Weight gain Obesity peds (BMI >=95 percentile) Generalized epilepsy High-risk in second trimester Nausea and vomiting during prior to 22 weeks gestation PLAN 1. High-risk in second trimester See active problem list Hx of depression- EPDS-1, she states she is doing well 2. 20 weeks gestation of - POCT Urinalysis w/o Specific Vernal- negative for protein and glucose Compression socks and elevation for occasional ankle swelling Supportive pillows, shoes and massage for hip pain, if no improvement will refer to PT - Anatomy scan scheduled 08/11 labor precautions reviewed --All questions answered F/u with Dr. Whitmore in 4 weeks Dahlia Lewis, DNP, SUPERVISOR [employer] 48:47 AM [facility] 2023-07-30 07:37:06 Patient is 20 weeks , SHANTEL 12/16/23. G1A0. States that last night she began having pelvic pain that has not subsided and she has not felt movement since last night. No vaginal bleeding. OB is Dr. Whitmore. Keven Adames RN [facility] 2023-07-30 07:16:00 Regardinwks preg//no movement this am/severe vaginal pressure this am ----- Message from Ivy Olivia sent at 07/30/2023 7:16 AM CDT ----- Romy Bernstein is a 23 year old female Patient is calling. Patient is 20wks and woke with no movement and severe vaginal pressure. Lizzette Shoemaker RN [facility] 2023-07-30 07:16:00 Reason for Disposition Patient already left for the hospital/clinic. Protocols used: No Contact or Duplicate Contact [id number] I spoke with the patient. She states her boyfriend is currently driving her to the [facility] ER, and they are turning into the parking lot now. She states, "I am having some serious, serious, serious lower abd pain, and I havent felt my baby move this morning." She states she last felt the baby move last night before she went to bed. She sounded tearful on the phone. I instructed her to continue on to the ER, and tell them what she told me. I informed her that they would evaluate her and the baby. I did instruct her to take some slow, deep breaths. She denied further questions at this time. Lizzette Rosas [facility] 2023-07-29 12:00:00 Images from the original note were not included. Venipuncture collection performed by clean technique on the right anticubitus. Total of 1 attempts were made. Slight pressure and a bandage/dressing were applied to the site(s). The patient experienced no complications. The following specimens were processed according to instructions and sent to [facility] per lab order on 07/29/2023 : LT BLUE SST 1 RED 1 LAV PPT DK GREEN (LiHep) DK GREEN (SodH) CARNEY DK BLUE (K2) DK BLUE (S) ACD Blood Culture NIPT/NTD Patient stated she will follow up with Whitmore for the 1 hour glucose lab. Anamaria El 07/29/2023 1:00 PM [facility] 2023-07-29 12:00:00 Images from the original note were not included. Called patient per their provider's result note and patient verbalized understanding. Conchita Lopez MD P Neurology Nurse I tried to call this patient using the two phones available and had no response. She is currently and taking Keppra XR 500 mg - 2 tabs in the evening. However, the blood level of keppra is very low = 4, which places her of risk of seizures and complications to her baby. - Please advise patient to start taking keppra XR 500 mg in a total of 4 tabs (2000 mg) per day today (ideally, 2 in the morning and 2 in the evening, but if she does not tolerate, she can take all 4 tabs in the evening). - Please repeat the blood level of keppra after 2 weeks. Thank you. [facility] Laura Meza RN [facility] 2023-07-21 11:15:37 Called and spoke with pt and advised per Dr. Lopez and Romy verbalized understanding. Levetiracetam is by far the most used antiseizure medication during and the safest for the fetus. This type of tablets cannot be taken once a day. I sent a prescription to her pharmacy of Levetiracetam XR (extended release), which can be taken once a day in the evening. I reduced the dose. She should take levetiracetam ER 500 mg - 2 tabs daily in the evening. She should obtain a blood level of keppra in the morning on . The request for blood level of keppra is ready as well. I am not in clinic today. Please explain that the risk of seizures during by far exceeds the risks of taking antiseizure medications. Please call us back if there are any issues with this medication. Laura Meza RN [facility] 2023-07-20 15:37:01 Levetiracetam is by far the most used antiseizure medication during and the safest for the fetus. This type of tablets cannot be taken once a day. I sent a prescription to her pharmacy of Levetiracetam XR (extended release), which can be taken once a day in the evening. I reduced the dose. She should take levetiracetam ER 500 mg - 2 tabs daily in the evening. She should obtain a blood level of keppra in the morning on . The request for blood level of keppra is ready as well. I am not in clinic today. Please explain that the risk of seizures during by far exceeds the risks of taking antiseizure medications. Please call us back if there are any issues with this medication. Thank you. [facility] 2023-07-13 11:15:15 please review and advise, pt is having issues with sleepiness. Pt would like a call back to discuss the Keppra. Thank you. Rekha Kwon RN [facility] 2023-07-13 10:27:41 Patient calling regarding medication keppra 750mg. Patient states she's suppose to take meds 2x a day but she's been skipping her morning dose due to the medication makes her sleepy and she has to work. Patient states you discuss another medication with her that she can take once a day and safe for her to take while . Patient ask if she can get started on this so she can take at night only. Please call pt @ [phone]. Allyson Huynh [facility] 2023-07-09 09:10:28 Received FOB Horizon results via fax. Stamped and will be scanned/uploaded into pt's chart. ALENA WELLS RN 07/09/2023 9:10 AM Alena Wells RN [facility] 2023-07-06 11:00:00 Age: [age] year old GA: 16w5d History of seizure - patient saw neurology on 06/15/23. - Last episode was about 2 weeks ago - Currently on Keppra 750 mg BID - has EEG scheduled for 07/16/23 Low back pain/pelvic pain - Advise maternity belt, rest prn, tylenol prn History of depression -Was diagnosed at age 16. States that she was on medication until age 17. Saw a counselor/therapist until age 18. -EPDS 2 today. Denies SI/HI. -Will continue to monitor Nausea/vomiting -Random -Discussed avoid triggers -Unisom/vitamin B6/Reglan as needed HSV I IgG positive - + hx of oral herpes. 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 FOB got tested, awaiting result MsAFP ordered Anatomy scan ordered NOB labs wnl except Rubella NI Follow-up in 4 weeks for visit with FLOOR NURSE Follow-up in 8 wks for PN with Whitmore I spent a total of 30 minutes on the day of the visit. The time spent for patient care includes: PreCharting (eg, review of tests, notes, etc.), Obtaining and/or reviewing separately obtained history (Care Everywhere or paper records), Performing a medically appropriate examination and/or evaluation, Counseling and educating the patient/family/caregiver, Ordering medications, tests, or procedures, Ordering referrals and/or communicating with other health acute care nurse (when not separately reported), and Documenting clinical information in the electronic or other health record. [facility] 2023-06-24 12:58:53 Name and verified. FOB in system. Appt made for lab tomorrow. ALENA WELLS RN 06/24/2023 12:59 PM Alena Wells RN [facility] 2023-06-24 12:18:39 Patient says a microbiology lab technician was suppose to come out today to her home to draw labs on boyfriend and did not show up they want to know if he can just come into one of our lab clinics today. Dana Davila [facility] 2023-06-17 10:36:21 Spoke with patient. Patient gave permission for Eliu to quill picking machine operator her gender results. Patient advised of horizon results showing: Carrier for medium chain acyl-coA Dehydrogenase deficiency Patient advised the next step is to have FOB tested. Patient gave FOB information to send order to [facility] Horizon results sent via [employer] per patient request. No other questions or concerns at this time. Shelly Conteh RN 06/17/2023 10:38 AM Shelly Conteh RN [facility] 2023-06-17 09:31:05 Romy Bernstein is a 23 year old female Pt states the test results for the baby are in and she does not want to know the gender. Pts best friend Eliu Guzman will be picking up the letter stating the gender because she will be having a gender reveal. eliu guzman [phone] Zuly Gillespie [facility] 2023-06-15 09:00:00 Addended by: CONCHITA LOPEZ MD on: 07/20/2023 03:36 PM Modules accepted: Orders [facility] 2023-06-05 08:15:00 Images from the original note were not included. Venipuncture collection performed by clean technique on the left anticubitus. Total of 1 attempts were made. Slight pressure and a bandage/dressing were applied to the site(s). The patient experienced no complications. The following specimens were processed according to instructions and [facility] to [facility] per lab order on 06/05/2023 : LT BLUE SST 3 RED 1 LAV 3 PPT DK GREEN (LiHep) DK GREEN (SodH) CARNEY DK BLUE (K2) DK BLUE (S) ACD Blood Culture NIPT/NTD Patrice only, dr whitmore will advise pt when to do 1hr gtt. will do urine next visit [facility] 2023-06-04 14:07:28 PT D/C home. GCS15, VS stable. Given D/C paperwork. Pt ambulatory at time of discharge. Pt educated on med usage, follow up care, s/s worsening condition, need for hydration. Pt verbalized understanding. Pt ambulated from ED in NAD with her significant other Paige Salinas RN [facility] 2023-06-04 11:22:17 Pt assisted back to stretcher. [facility] 2023-06-04 11:18:34 Pt up to restroom by w/c with Significant other assisting in restroom. T [facility] 2023-06-04 10:18:24 Pt was retrieved from [employer] as a rapid response. Pt is ; 12w1d gestation at the [facility] for a 1hour glucose. Staff reports she drank the glucose at 0939. Pt transported to [facility]; at bedside. Per pt's mother via phone pat does not take any seizure medications due to not having insurance. Male visitor at bedside. Vonda Diaz RN [facility] 2023-06-04 10:16:00 [facility] Emergency Department Note Patient Name: Romy Bernstein Date of : 2000 23 year old female [facility] Primary Care Physician: PATIENT DOES NOT HAVE A PCP Patient Escorted by: Self [9] Mode of Arrival: Personal means [1] EMS Treatment Prior to ED Arrival: SUSTAINABILITY ENGINEER treatment: None Travel and Exposure Screening: Symptoms Does patient have any of these symptoms?: (not recorded) Exposure Screening Has patient had contact with someone with a communicable disease in the last month?: (not recorded) Diseases exposed to:: (not recorded) Is Patient ?: (not recorded) Exposure Date: (not recorded) Chief Complaint: Chief Complaint Patient presents with Seizures History of Present Illness: Pt was retrieved from [facility] lobby as a rapid response after suffering a seizure. Pt is ; 12w1d gestation with know history of seizures (Not compliant with medication due to lack of insurance) at the pob for a 1hour glucose tolerance test. Seizure was tonic clonic without sphincter relaxation, and follow ed by post ictal status. History provided by: Nursing Stasolomon. asp net mvc developer used: No Seizures Seizure activity on arrival: no Seizure type: Grand mal Preceding symptoms: headache Initial focality: Multifocal Episode characteristics: abnormal movements and generalized shaking Postictal symptoms: confusion Return to baseline: no Severity: Moderate Duration: 30 seconds Timing: Once Number of seizures this episode: 1 Progression: Partially resolved Context: Context comment: History of seizures, currently not taking medications Recent head injury: No recent head injuries SUSTAINABILITY ENGINEER treatment: None History of seizures: yes Past Medical History/Immunizations: Past Medical History: Diagnosis Date Allergic rhinitis Asthma Family history of familial hypercholesterolemia High risk sexual behavior Menorrhagia Mild episode of recurrent major depressive disorder 10/07/2018 Ovarian cyst 02/24/2017 Seizures 03/30/2018 Due to Fever / Strep Tetanus received in last 5 years: Unknown Allergies: Allergies Allergen Reactions Solifenacin Swelling Per mom, after increasing the dose to 10 mg , patient experienced swelling to the face. Keppra [Levetiracetam] Other - See comments Numb mouth, and sleepy Vesicare [Solifenacin Succinate] Rash and Swelling Past Social History: Tobacco Use Never smoked or used smokeless tobacco. Passive Exposure: Yes Vaping Use Never used Alcohol Use No. Drug Use No. Sexual Activity Sexually active; Partners: Male. Past Surgical History: Past Surgical History: Procedure Laterality Date ADENOIDECTOMY TONSILLECTOMY Review of Systems: Review of Systems Unable to perform ROS: Other Neurological: Positive for seizures. Patient Post Ictal Physical Exam: ED Triage Vitals Weight 06/04/23 1020 88.5 kg (195 lb) Actual or estimated 06/04/23 1020 Estimated by healthcare provider Height -- BP 06/04/23 1020 (!) 143/93 Pulse 06/04/23 1020 88 Resp 06/04/23 1020 16 Temp 06/04/23 1022 36.9 ?C (98.4 ?F) Temp source 06/04/23 1022 Axillary SpO2 06/04/23 1020 100 % Measured on 06/04/23 1020 Room air Physical Exam Vitals and nursing note reviewed. Constitutional: General: She is not in acute distress. Appearance: She is well-developed and overweight. She is not ill-appearing, toxic-appearing or diaphoretic. HENT: Head: Normocephalic and atraumatic. Right Ear: External ear normal. Left Ear: External ear normal. Nose: Nose normal. Mouth/Throat: Pharynx: No oropharyngeal exudate. Eyes: General: No scleral icterus. Right eye: No discharge. Left eye: No discharge. Conjunctiva/sclera: Conjunctivae normal. Pupils: Pupils are equal, round, and reactive to light. Neck: Thyroid: No thyromegaly. Vascular: No JVD. Trachea: No tracheal deviation. Cardiovascular: Rate and Rhythm: Normal rate and regular rhythm. Heart sounds: Normal heart sounds. No murmur heard. No friction rub. No gallop. Pulmonary: Effort: Pulmonary effort is normal. No respiratory distress. Breath sounds: Normal breath sounds. No stridor. No wheezing or rales. Chest: Chest wall: No tenderness. Abdominal: General: Bowel sounds are normal. There is no distension. Palpations: Abdomen is soft. There is no mass. Tenderness: There is no abdominal tenderness. There is no guarding or rebound. Musculoskeletal: General: No tenderness or deformity. Normal range of motion. Cervical back: Normal range of motion and neck supple. Lymphadenopathy: Cervical: No cervical adenopathy. Skin: General: Skin is warm and dry. Coloration: Skin is not pale. Findings: No erythema or rash. Neurological: General: No focal deficit present. Mental Status: She is easily aroused. She is lethargic and confused. Cranial Nerves: No cranial nerve deficit or facial asymmetry. Motor: No abnormal muscle tone. Coordination: Coordination normal. Deep Tendon Reflexes: Reflexes are normal and symmetric. Reflexes normal. Reflex Scores: Bicep reflexes are 2+ on the right side and 2+ on the left side. Patellar reflexes are 2+ on the right side and 2+ on the left side. Comments: Exam limited due to post ictal status Psychiatric: Behavior: Behavior normal. Thought Content: Thought content normal. Judgment: Judgment normal. Radiology: No orders to display Lab Results: Lab Results CBC WITH DIFF - Abnormal Result Value Ref Range WBC 9.80 4.30 - 11.10 10*3/?L RBC 4.51 3.93 - 5.25 10*6/?L HGB 13.2 11.6 - 15.0 g/dL HCT 38.1 35.7 - 45.2 % MCV 84.5 80.6 - 95.5 fL MCH 29.3 25.9 - 32.8 pg MCHC 34.6 31.6 - 35.1 g/dL RDW-SD 41.6 39.0 - 49.9 fL RDW-CV 13.5 12.0 - 15.5 % PLT 281 166 - 358 10*3/?L MPV 9.1 (*) 9.5 - 12.9 fL NRBC/100 WBC 0.0 0.0 - 10.0 /100 WBCs NRBC x10 3 <0.01 10*3/?L GRAN MAT (NEUT) % 70.1 % IMM GRAN % 0.50 % LYMPH % 23.7 % MONO % 4.6 % EOS % 0.9 % BASO % 0.2 % GRAN MAT x10 3 (ANC) 6.87 1.88 - 7.09 10*3/uL IMM GRAN x10 3 0.05 0.00 - 0.06 10*3/uL LYMPH x10 3 2.32 1.32 - 3.29 10*3/uL MONO x10 3 0.45 0.33 - 0.92 10*3/uL EOS x10 3 0.09 0.03 - 0.39 10*3/uL BASO x10 3 <0.03 0.01 - 0.07 10*3/uL COMP. METABOLIC PANEL (83797) - Abnormal NA 134 (*) 135 - 145 mmol/L K 3.6 3.5 - 5.0 mmol/L CL 106 98 - 108 mmol/L CO2 TOTAL 20 (*) 23 - 31 mmol/L AGAP 8 2 - 16 BUN 7 7 - 23 mg/dL GLUCOSE 128 (*) 70 - 110 mg/dL CREATININE 0.42 (*) 0.50 - 1.04 mg/dL TOTAL BILI 0.3 0.1 - 1.1 mg/dL CALCIUM 9.4 8.6 - 10.6 mg/dL T PROTEIN 6.9 6.3 - 8.2 g/dL ALBUMIN 3.9 3.5 - 5.0 g/dL ALK PHOS 51 34 - 122 U/L ALTv 18 5 - 35 U/L AST(SGOT) 20 13 - 40 U/L eGFR 142.9 mL/min/1.73m2 URINALYSIS - Abnormal APPEARANCE Clear Clear COLOR Straw (*) Yellow PH 6.0 4.8 - 8.0 SP GRAVITY 1.005 1.003 - 1.030 GLU U QUAL Normal Normal BLOOD Negative Negative KETONES Negative Negative PROTEIN Negative Negative UROBILIN Normal Normal BILIRUBIN Negative Negative NITRITE Negative Negative LEUK MARJAN 75/uL (*) Negative RBC/HPF 3 0 - 3 HPF WBC/HPF 1 0 - 5 HPF BACTERIA Few (*) Negative MUCOUS Slight (*) Negative LPF SQ EPITH 4 HPF MAGNESIUM - Normal MAGNESIUM 1.8 1.7 - 2.4 mg/dL TOTAL BETA HCG ASSAY BETA HCG 118,140.00 Non- female and male patients: <5 mIU/mL EKG: If EKG completed, see Procedure Note. Orders and Treatments: Orders Placed This Encounter Procedures Cbc with Diff Comp. Metabolic Panel (38032) Magnesium Urinalysis TOTAL BHCG (QUANTITATIVE) Consult/Referral Neurology Orders Placed This Encounter Medications ondansetron (ZOFRAN (PF)) injection 4 mg famotidine (PEPCID (PF)) injection 20 mg levETIRAcetam (KEPPRA) in NACL (ISO-OS) 1,000 mg/100 mL RTU First Provider Eval: ED Events Date/Time Event User Comments 06/04/23 1023 Medical Screening Begins JESSE LEMOS MD -- 06/04/23 1023 First Provider Evaluation JESSE LEMOS MD -- ED COURSE Patient's condition improved with the treatment provided in the ED, will DC Home wit a referral to Neurology for further evaluation and with instructions to follow up with her OBGYN to talk about alternatives for her seizure management. KEPPRA chosen as medication to treat her seizure following the latest Up to date recommendation: For women with epilepsy of childbearing age who are planning , lamotrigine or levetiracetam monotherapy are preferred as first line treatment options because they have the most abundant and consistent data for low structural and neurodevelopmental teratogenic risk during Diagnosis/Impression as of 06/04/23 1356 Seizure disorder First trimester Procedures: Procedures MDM: Medical Decision Making Problems Addressed: First trimester : chronic illness or injury Seizure disorder: chronic illness or injury Amount and/or Complexity of Data Reviewed Independent Historian: Details: Mother called by phone and provided some information about her case External Data Reviewed: labs and notes. Details: From her recent visit with Dr Whitmore her OBGYN reviewed Labs: ordered. Decision-making details documented in ED Course. Risk Prescription drug management. Drug therapy requiring intensive monitoring for toxicity. Flowsheet Documentation: Scoring Tools: No data recorded Disposition/Condition: ED Disposition ED Disposition Disch - Home Condition Stable Comment -- Discharge Medications: Patient's Medications START taking these medications No medications on file CONTINUE taking these medications which have NOT CHANGED DOXYLAMINE (UNISOM, DOXYLAMINE,) 25 MG TABLET Take 1 tablet by mouth at bedtime as needed for Nausea and Vomiting (N/V). LACTOBACILLUS ACIDOPHILUS (PROBIOTIC ORAL) Take by mouth. METOCLOPRAMIDE HCL 10 MG TABLET Take 1 tablet by mouth every 6 (six) hours as needed for Nausea and Vomiting (N/V). PNV NO.95/FERROUS FUM/FOLIC AC ( ORAL) Take by mouth. PYRIDOXINE, VITAMIN B-6, (VITAMIN B-6) 25 MG TABLET Take 1 tablet by mouth every 6 (six) hours as needed for Nausea and Vomiting (N/V). START taking Modified Medications as Prescribed No medications on file STOP taking these medications No medications on file Follow-up: Electronically signed by: Jesse Lemos MD 06/04/23 1356 [facility] 2023-06-04 10:00:00 Loaded pt w 50gm fruit punch glucola, no issues. Draw time: 10:40 Nadine Davis [facility] 2023-06-04 10:00:00 Pt taken to er for seizures called [facility] office to notify them of incident. [facility] 2023-06-04 09:00:00 Age: [age] year old GA: 12w1d History of seizure -Patient states that she was seen at ER yesterday due to seizure. States that she has not been on seizure medication for more than a year. States that she typically gets a bad headache and then will blackout. -Referral to neurology placed on 05/07/2023. Has not been scheduled yet. Will have staff assist. History of depression -Was diagnosed at age 16. States that she was on medication until age 17. Saw a counselor/therapist until age 18. -EPDS 5 today. Denies SI/HI. -Will continue to monitor Nausea/vomiting -Random -Discussed avoid triggers -Unisom/vitamin B6/Reglan as needed Panorama/Horizon kits given today with new OB labs Pap smear with GC/CT/trichomoniasis obtained today Follow-up in 4 weeks for visit [facility] 2023-06-04 09:00:00 Addended by: SHELLY CONTEH on: 06/05/2023 08:32 AM Modules accepted: Orders Shelly Conteh RN [facility] 2023-05-16 17:24:32 PT D/C home. GCS15, VS stable. Given D/C paperwork. Pt ambulatory at time of discharge. Pt educated on med usage, follow up care, s/s worsening condition, need for hydration. Pt verbalized understanding. OW TRIMMER APPRENTICE Paige Salinas RN [facility] 2023-05-16 15:53:10 Patient states: "It started early this morning. I work for [employer] so I do a lot of heavy lifting so I dont' know if that's what's causing it. It's light and then after a few times of going to the restroom it gets darker then it stops. This is my first " G 1, P 0 , A 0 Pmhx: pseudo seizures. Reports vaginal spotting. OW TRIMMER APPRENTICE Claudia Ocasio RN [facility] 2023-05-07 10:00:00 Age: [age] year old GA: 8w1d by Patient's last menstrual period was 03/11/2023. History of seizure -Patient states that she was seen at ER yesterday due to seizure. States that she has not been on seizure medication for more than a year. States that she typically gets a bad headache and then will blackout. -Referral to neurology placed History of depression -Will obtain more information next visit Patient states that she works at [employer] and sometimes have to lift as heavy as 30 to 40 pounds. Discussed to let us know if she has shortness of breath and for vaginal bleeding or cramping with heavy lifting. Patient does not have insurance at this time and wants to do for all labs/testing until May when her insurance will be available. - Transvaginal USG for FHT: Single live IUP measured 7 4/7 weeks, consistent with LMP. Will date by Patient's last menstrual period was 03/11/2023. unless clinically indicated otherwise New OB labs ordered, to be done next visit. No complaints. Discussed do's and don'ts of , safe foods, safe medications. Reviewed Zika virus precautions. I discussed the call schedule and that I might not be the physician delivering her. I discussed I deliver my patients at [facility]. Expectations for weight gain this include 11-20 pounds. Encouraged to call if have any additional questions or concerns. Discussed aneuploidy and carrier screening; patient opts for panorama and Horizon. Have received 2 doses of COVID vaccines. Counseled and recommend COVID booster vaccines. Received flu vaccines today Discussed about COVID-19/flu precautions. Social distancing, frequent hand washings, wearing face mask, signs/symptoms for testing and to follow CDC recommendations discussed. Discussed with patient that she can have HEALTHY support with her during her delivery (which is subject to change depends on the COVID pandemic) Follow-up in 4 weeks for visit OW TRIMMER APPRENTICE [facility] 2023-05-05 08:07:30 Pt returned call. Pt notified of payment amount. EEN Thomas [facility] 2023-05-04 14:56:55 LVM to review estimate with pt. MyChart estimate letter also sent. [facility] 2023-05-04 14:15:02 Pt would like to know the OOP cost due for her upcoming apt. Please advise. Future Appointments Date Time Provider Department Center 05/07/2023 10:00 AM [facility] Nazario oMore [facility] 2022-12-01 10:19:49 I contacted Ms. Bernstein to let her know I received her hereditary cancer testing result. 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 CHEK2 carriers are at an increased risk [...] CHEK2 pathogenic (low penetrance) variant, specifically c.470T>C ([id number]). This result is associated with an increased risk for breast and colon cancer with specific management recommendations for these risks, although the specific risks associated with this variant are lower in comparison to other CHEK2 pathogenic variants. 2) A follow-up appointment will be scheduled for tomorrow to discuss the implications of this result for her and her family members [facility] 2022-11-26 11:50:52 [facility] lab results scanned to chart. T Corrine Llanos RN [facility] 2022-11-18 10:15:00 Images from the original note were not included. Venipuncture collection performed by clean technique on the [...] DK BLUE (S) ACD Blood Culture NIPT/NTD T [facility]
--- NOTE | 2024-08-11 19:51 | RAD REPORT ---
EXAMINATION: TWO VIEW CHEST XR CLINICAL INDICATION: FEVER TECHNIQUE: 2 views of the chest was performed. COMPARISON: No prior exam. FINDINGS: The lungs are well inflated and clear. The heart is normal in size. No displaced fractures evident. IMPRESSION: No acute or significant abnormalities.
[2024-08-11] MEDS ORDERED: NA CHLORIDE 0.9% 1,000 ML ONE (20:11)
--- NOTE | 2024-08-11 20:12 | RAD REPORT ---
EXAMINATION: Transvaginal OB COMPARISON: None. HISTORY: ABD CRAMPING, TECHNIQUE: Real-time ultrasound was performed through the pelvis. A transvaginal scan was performed t o better visualize the intrauterine contents and adnexa. FINDINGS: Uterus is normal in size. No IUP is evident. No myometrial mass is seen. Small amount of fluid seen i n the region of the cervix. Both ovaries are normal in size, shape and echotexture. Normal blood flow. No pelvic ascites. IMPRESSION: No IUP is visualized. In the setting of a positive hCG level, this would indicate of unknown location. Serial hCG level measurements and follow-up pelvic sonography in 7-10 days would be recommended.
[2024-08-11 20:59] LABS: Absolute Eosinophils 0.1 K/uL (0-0.5); Absolute Lymphocytes (CBC) 2.3 K/uL (0.7-4.9); Absolute Monocytes 0.7 K/uL (0.1-1.3); Absolute Neutrophil 5.9 K/uL (1.8-8.0); Basophils % 0.2 % (0-1.3); Eosinophils % 0.9 % (0-4.4); Hematocrit 38.8 % (36.0-45.0); Hemoglobin 13.5 g/dL (12.0-15.0); MCHC 34.7 g/dL (32.0-36.0); MCV 83.5 fL (80-100); MPV 7.4 fL (7.6-11.3); Monocytes % 8.1 % (3.3-12.3); Neutrophils % 65.8 % (41.7-73.7); Nucleated Red Blood Cells % 0.1 % (0-0); Platelets 340 thou/uL (152-406); RBC Red Blood Cell Count 4.65 M/uL (3.86-4.86); Red Cell Distribution Width 13.7 % (12.1-15.2)
[2024-08-11 21:00] LABS: Specific Gravity 1.008 (1.005-1.030); Urine Bilirubin NEGATIVE (Negative); Urine Blood Negative (Negative); Urine Clarity Clear (Clear); Urine Color Colorless (Yellow); Urine Glucose NEGATIVE (Negative); Urine Ketones NEGATIVE (Negative); Urine Microscopic Reflex YN NO UMIC; Urine Nitrite NEGATIVE (Negative); Urine Protein NEGATIVE (Negative); Urine Urobilinogen Normal (Normal); Urine pH 5.5 (5.0-7.0)
[2024-08-11 21:01] LABS: Specific Gravity 1.008 (1.005-1.030)
[2024-08-11 21:02] LABS: Influenza A Ag Negative; Influenza B Ag Negative; SARS-CoV-2 Antigen Rapid Res Negative (Negative)
[2024-08-11 21:16] LABS: Albumin 3.3 g/dL (3.4-5.0); Albumin/Globulin Ratio 0.9 (1.1-1.8); Anion Gap 8.5 mEq/L (5.0-15.0); Bilirubin Total 0.2 mg/dL (0.2-1.0); Globulin 3.8 g/dL (2.3-3.5); Potassium 3.5 mEq/L (3.5-5.1); Protein, Total 7.1 g/dL (6.4-8.2)
--- NOTE | 2024-08-11 21:53 | ER ---
Nurse's Notes [facility] Name: Romy Bernstein Age: 24 yrs Sex: Female : 2000 Arrival Date: 08/11/2024 Time: 18:56 Bed IW9 Private MD: Diagnosis: Nausea with vomiting, unspecified;Fever, unspecified Presentation: 08/11 19:19 Chief complaint: Patient states: I have been throwing up for the past 2-3 days, I just jb4 got over a viral infection a week ago and I have been having bad stomach pains and cramps. I just don't feel right, my temp at home was 101.0. Coronavirus screen: At this time, the client does not indicate any symptoms associated with coronavirus-19. Ebola Screen: No symptoms or risks identified at this time. Initial Sepsis Screen: Does the patient meet any 2 criteria? No. Patient's initial sepsis screen is negative. Does the patient have a suspected source of infection? No. Patient's initial sepsis screen is negative. Risk Assessment: Do you want to hurt yourself or someone else? Patient reports no desire to harm self or others. Onset of symptoms was August 08, 2024. Transition of care: patient was not received from another setting of care. 19:19 Method Of Arrival: Ambulatory jb4 19:19 Acuity: SERA 3 jb4 Triage Assessment: 19:21 General: Appears in no apparent distress. comfortable, Behavior is calm, cooperative, jb4 appropriate for age. Pain: Complains of pain in abdomen Pain does not radiate. Pain currently is 7 out of 10 on a pain scale. Quality of pain is described as crampy, Pain began 2-3 days ago. Neuro: Level of Consciousness is awake, alert, obeys commands, Oriented to person, place, time, situation. Cardiovascular: Patient's skin is warm and dry. Respiratory: Airway is patent Respiratory effort is even, unlabored, Respiratory pattern is regular, symmetrical. GI: Reports lower abdominal pain, nausea, vomiting. Derm: Skin is intact, Skin is pink, warm \T\ dry. Musculoskeletal: Circulation, motion, and sensation intact. Range of motion: intact in all extremities. 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 jb4 Historical: - Allergies: 19:21 Keppra; jb4 19:21 Vesicare; jb4 - PMHx: 19:21 Anxiety; bladder problems; Seizures; jb4 - PSHx: 19:21 Tonsillectomy; (Tonsillectomy); jb4 - Immunization history:: Adult Immunizations up to date. - Infectious Disease History:: Denies. - Social history:: Smoking status: Patient denies any tobacco usage or history of. - Family history:: not pertinent. Screenin:24 [facility] ED Fall Risk Assessment (Adult) History of falling in the last 3 months, jb4 including since admission No falls in past 3 months (0 pts) Confusion or Disorientation No (0 pts) Intoxicated or Sedated No (0 pts) Impaired Gait No (0 pts) Mobility Assist Device Used No (0 pt) Altered Elimination No (0 pt) Score/Fall Risk Level 0 - 2 = Low Risk Oriented to surroundings, Maintained a safe environment. Abuse screen: Denies threats or abuse. Nutritional screening: No deficits noted. Tuberculosis screening: No symptoms or risk factors identified. Assessment: 21:00 General: Appears in no apparent distress. comfortable, well groomed, well nourished, hm5 Behavior is calm, cooperative. Pain: Denies pain. Neuro: No deficits noted. Cardiovascular: No deficits noted. Respiratory: No deficits noted. GI: No deficits noted. No signs and/or symptoms were reported involving the gastrointestinal system. GI: Reports nausea, vomiting. : No deficits noted. No signs and/or symptoms were reported regarding the genitourinary system. : Parent/caregiver report the patient having believes she may be . EENT: No deficits noted. No signs and/or symptoms were reported regarding the EENT system. Derm: No deficits noted. No signs and/or symptoms reported regarding the dermatologic system. Vital Signs: 19:19 BP 131 / 87; Pulse 89; Resp 16; Temp 98.9(O); Pulse Ox 98% on R/A; Weight 83.91 kg (R); jb4 Height 5 ft. 3 in. (R); Pain 7/10; 21:45 BP 134 / 87; Pulse 79; Resp 18; Pulse Ox 99% on R/A; hm5 19:19 Body Mass Index 32.77 (83.91 kg, 160.02 cm) jb4 19:19 Pain Scale: Adult jb4 ED Course: 18:59 Patient arrived in ED. mr 19:12 Bari Ceron MD is Attending Physician. [facility] 19:21 Triage completed. jb4 19:21 Arm band placed on right wrist. jb4 19:24 Patient has correct armband on for positive identification. Bed in low position. Call jb4 light in reach. Side rails up X 1. Provided Education on: plan of care. 19:46 Chest Pa And Lat (2 Views) XRAY In Process Unspecified. EDMS 20:02 Attending Physician role handed off by Bari Ceron MD rt 20:02 Reinaldo Bond MD is Attending Physician. rt 20:04 US Transvaginal Ob In Process Unspecified. EDMS 20:13 Corrine Vogel, CHAYA is Primary Nurse. 5 21:00 Inserted saline lock: 20 gauge in left antecubital area, using aseptic technique. Blood hm5 collected. Flushed with 10 mL NS. 22:04 No provider procedures requiring assistance completed. hm5 22:05 IV discontinued, intact, bleeding controlled, No redness/swelling at site. Pressure hm5 dressing applied. Administered Medications: 20:46 Drug: NS 0.9% IV 1000 ml IV at 1000 ml once; to be given as a bolus over 60 minutes 5 Route: IV; Rate: 1000 ml; Site: left antecubital; 21:30 Follow up: IV Status: Completed infusion; IV Intake: 1000ml [facility] 22:04 Drug: Ondansetron IVP 4 mg IVP once; over 2 minutes Route: IVP; Site: left antecubital; 5 22:10 Follow up: Response: No adverse reaction 5 Medication: 19:24 VIS not applicable for this client. jb4 Intake: 21:30 IV: 1000ml; Total: 1000ml. [facility] Outcome: 21:52 Discharge ordered by . rt 22:06 Discharged to home 5 22:06 Condition: stable 22:06 Discharge instructions given to patient, Instructed on discharge instructions, follow up and referral plans. medication usage, Demonstrated understanding of instructions, follow-up care, medications, Prescriptions given X 1, 22:20 Patient left the ED. [facility] Signatures: Dispatcher [employer] EDMS Bari Ceron MD MD cha Rivera, Mary, Reg Reg Lukas Mclean, RN RN [facility] Reinaldo Bond MD MD rt Corrine Vogel, CHAYA RN hm5
--- NOTE | 2024-08-11 21:53 | EDPHYS ---
Physician Documentation [facility] Name: Romy Bernstein Age: 24 yrs Sex: Female : 2000 Arrival Date: 08/11/2024 Time: 18:56 Bed IW9 Private MD: ED Physician Reinaldo Bond HPI: 08/12 03:36 This 24 yrs old Female presents to ER via Ambulatory with complaints of rt Nausea, Fever. 03:36 Patient presents to the ED with fever, vomiting for the past 3 days. Patient states rt that she had a positive test at home. Reports a mild abdominal cramping but denies other acute complaints at this time, symptoms are mild in severity, no other aggravating or alleviating factors.. 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 jb4 Historical: - Allergies: 19:21 Keppra; jb4 19:21 Vesicare; jb4 - PMHx: 19:21 Anxiety; bladder problems; Seizures; jb4 - PSHx: 19:21 Tonsillectomy; (Tonsillectomy); jb4 - Immunization history:: Adult Immunizations up to date. - Infectious Disease History:: Denies. - Social history:: Smoking status: Patient denies any tobacco usage or history of. - Family history:: not pertinent. ROS: 08/12 03:36 Cardiovascular: Negative for chest pain, palpitations, and edema, Respiratory: Negative rt for shortness of breath, cough, wheezing, and pleuritic chest pain, MS/Extremity: Negative for injury and deformity, Skin: Negative for injury, rash, and discoloration, Neuro: Negative for headache, weakness, numbness, tingling, and seizure, Constitutional: Positive for body aches, fever, Abdomen/GI: Positive for nausea, Negative for abdominal pain, Exam: 03:36 Constitutional: This is a well developed, well nourished patient who is awake, alert, rt and in no acute distress. Head/Face: Normocephalic, atraumatic. Chest/axilla: Normal chest wall appearance and motion. Nontender with no deformity. No lesions are appreciated. Cardiovascular: Regular rate and rhythm with a normal S1 and S2. No gallops, murmurs, or rubs. Normal PMI, no JVD. No pulse deficits. Respiratory: Lungs have equal breath sounds bilaterally, clear to auscultation and percussion. No rales, rhonchi or wheezes noted. No increased work of breathing, no retractions or nasal flaring. Abdomen/GI: Soft, non-tender, with normal bowel sounds. No distension or tympany. No guarding or rebound. No evidence of tenderness throughout. Skin: Warm, dry with normal turgor. Normal color with no rashes, no lesions, and no evidence of cellulitis. MS/ Extremity: Pulses equal, no cyanosis. Neurovascular intact. Full, normal range of motion. Neuro: Awake and alert, GCS 15, oriented to person, place, time, and situation. Cranial nerves II-XII grossly intact. Motor strength 5/5 in all extremities. Sensory grossly intact. Cerebellar exam normal. Normal gait. Vital Signs: 08/11 19:19 BP 131 / 87; Pulse 89; Resp 16; Temp 98.9(O); Pulse Ox 98% on R/A; Weight 83.91 kg (R); jb4 Height 5 ft. 3 in. (R); Pain 7/10; 21:45 BP 134 / 87; Pulse 79; Resp 18; Pulse Ox 99% on R/A; hm5 19:19 Body Mass Index 32.77 (83.91 kg, 160.02 cm) jb4 19:19 Pain Scale: Adult jb4 MDM: 19:12 Medical Screening Exam initiated [facility] 08/11 19:16 Order name: CBC with Diff; Complete Time: 21:30 [facility] 08/11 19:16 Order name: CMP; Complete Time: 21:30 [facility] 08/11 19:16 Order name: UA Rfx Haja Cult if indicated; Complete Time: 21:01 [facility] 08/11 19:16 Order name: PREGU; Complete Time: 21:30 [facility] 08/11 19:16 Order name: COVID-19 Ag + Flu A+B Ag; Complete Time: 21:30 [facility] 08/11 19:16 Order name: Group A Streptococcus Rapid; Complete Time: 20:20 [facility] 08/11 19:28 Order name: Quantitative Hcg; Complete Time: 21:30 [facility] 08/11 19:28 Order name: Abo/rh Typing; Complete Time: 21:42 [facility] 08/11 19:59 Order name: Throat Culture [facility]PR 08/11 19:16 Order name: Chest Pa And Lat (2 Views) XRAY; Complete Time: 20:20 [facility] 08/11 19:28 Order name: US Transvaginal Ob; Complete Time: 20:20 [facility] Administered Medications: 20:46 Drug: NS 0.9% IV 1000 ml IV at 1000 ml once; to be given as a bolus over 60 minutes [facility] Route: IV; Rate: 1000 ml; Site: left antecubital; 21:30 Follow up: IV Status: Completed infusion; IV Intake: 1000ml [facility] 22:04 Drug: Ondansetron IVP 4 mg IVP once; over 2 minutes Route: IVP; Site: left antecubital; [facility] 22:10 Follow up: Response: No adverse reaction [facility] Disposition Summary: 08/11/24 21:52 Discharge Ordered Notes: Location: Home rt Problem: new rt Symptoms: have improved rt Condition: Stable rt Diagnosis - Nausea with vomiting, unspecified rt - Fever, unspecified rt Followup: rt - With: Private Physician - When: 2 - 3 days - Reason: Discharge Instructions: - Discharge Summary Sheet rt - Fever, Adult rt - Nausea and Vomiting, Adult rt Forms: - Medication Reconciliation Form rt - Antibiotic Education rt - Prescription Opioid Use rt - Patient Portal Instructions rt - Leadership Thank You Letter rt Prescriptions: - ondansetron 4 mg Oral Tablet,disintegrating - take 1 tablet ORAL route every 6 hours as needed for nausea and vomiting; 15 rt tablet; Refills: 0, Product Selection Permitted Signatures: Dispatcher [employer] EDPR Bari Ceron MD MD [facility] Lukas Patel, RN RN jb4 Reinaldo Bond MD MD rt Corrine Vogel, RN RN 5 Corrections: (The following items were deleted from the chart) 19:17 19:17 CBC+H.LAB.BRZ ordered. EDMS EDMS 19:17 19:17 COMPREHENSIVE METABOLIC PANEL+C.LAB.BRZ ordered. EDMS EDMS 19:17 19:17 UA Rfx Haja Cult if indicated+U.LAB.BRZ ordered. EDMS EDMS 19:17 19:17 Test, Urine+UC.LAB.BRZ ordered. EDMS EDMS 19:17 19:17 COVID-19 Ag + Flu A+B Ag+I.LAB.BRZ ordered. EDMS EDMS 19:17 19: Group A Streptococcus Rapid Sc+I.LAB.BRZ ordered. EDMS EDMS 19: Chest Pa And Lat (2 Views)+RAD.RAD.BRZ ordered. EDMS EDMS 19: QUANTITATIVE HCG+C.LAB.BRZ ordered. EDMS EDMS 19: ABO/RH TYPING+BB.LAB.BRZ ordered. EDMS EDMS 19: Transvaginal Ob+US.RAD.BRZ ordered. EDMS EDMS
[2024-08-11] MEDS ORDERED: ONDANSETRON 4 MG/2 ML VIAL ONE (21:56)
[2024-08-11 22:32] VITALS: TEMP 98.9
[2024-08-11 22:33] VITALS: BP 134/87; O2SAT 99
== END 2024-08-11 22:20 | disposition home or self-care (01) ==
LOC: ER 18:56
DX: R50.9 Fever, unspecified (principal); R11.2 Nausea with vomiting, unspecified; Z11.52 Encounter for screening for COVID-19; Z79.899 Other long term (current) drug therapy
CPT/HCPCS: 36415; 71046; 76817; 80053; 81003; 81025; 84702; 85025; 86900; 86901; 87070; 87428; 96361; 96374; 99284; J2405; J7030